=== PATIENT | female | born 1995 | race Caucasian/White ===

== ENCOUNTER 2022-09-25 10:48 | Outpatient (OUT) | payer BC, SELFPAY ==
--- NOTE | 2022-09-25 10:55 | US_ITS ---
The [address] [address] Patient Name: INDU ST MRN: [id number] date: 1995 Sex: F Assigned Patient Location: US Current Patient Location: LAB Accession/Order Number: [id number] Exam Date: 09/25/2022 11:00 Report Date: 09/25/2022 11:52 At the request of: MARZENA JARRELL Procedure: US pelvis w/ transvaginal EXAMINATION: US pelvis w/ transvaginal HISTORY: Pelvic Pain In Female R10.2 COMPARISON: No relevant comparison available. TECHNIQUE: Transabdominal and/or transvaginal sonographic examination was performed as indicated by examination type. FINDINGS: UTERUS: Normal size and appearance. Uterus size: 8.4 x 3.9 x 5.1 cm ENDOMETRIUM: Normal homogeneous appearance. Endometrial thickness: 4 mm RIGHT OVARY: Contains a 3 mm hyperechoic area; calcification versus possible hemorrhagic cyst. Small amount of simple appearing free fluid within the adnexa suggesting a recently ruptured cyst. Duplex Doppler demonstrates normal waveform and flow; resistive index 0.5. Ovary size: 2.6 x 2.0 x 3.0 cm LEFT OVARY: Normal size and appearance. Duplex Doppler demonstrates normal waveform and flow; resistive index 0.5. Ovary size: 3.2 x 1.3 x 2.1 cm CUL-DE-SAC: Unremarkable. No significant free fluid. BLADDER: Unremarkable. OTHER: None. US/US pelvis w/ transvaginal IMPRESSION: 1. Small amount of free fluid within right adnexa suggesting a recently ruptured follicle/cyst, which may contribute to patient's symptoms. Electronically authenticated by: BRIAN ANYAK Date: 09/25/2022 11:52
[2022-09-25 12:14] LABS: Basophils Percent Auto 0.1 % (0.2-2.0); Eosinophils Percent Auto 0.5 % (0.9-7.0); Hematocrit 40.5 % (36.0-48.0); Hemoglobin 13.7 g/dL (12.0-16.0); Immature Granulocytes Abs Auto 0.02 10^3/uL (0.00-0.03); Immature Granulocytes Pct Auto 0.3 % (0.0-0.5); Lymphocytes Absolute Auto 1.8 10^3/uL (1.2-3.8); Lymphocytes Percent Auto 23.9 % (20.5-60.0); Mean Corpuscular HGB Conc 33.8 g/dL (29.9-35.2); Mean Corpuscular Hemoglobin 28.7 pg (26.7-34.0); Mean Corpuscular Volume 84.7 fL (81.0-99.0); Mean Platelet Volume 9.6 fL (9.5-13.5); Monocytes Absolute Auto 0.3 10^3/uL (0.3-0.8); Monocytes Percent Auto 4.3 % (1.7-12.0); Neutrophils Absolute Auto 5.3 10^3/uL (1.4-6.5); Neutrophils Percent Auto 70.9 % (43.0-75.0); Platelet Count 226 10^3/uL (150-450); Red Blood Count 4.78 10^6/uL (4.20-5.40); Red Cell Distribution Width 13.4 % (11.0-15.0); White Blood Count 7.4 10^3/uL (4.0-11.0)
[2022-09-25 12:41] LABS: Estimated Average Glucose 108 mg/dL; Glycohemoglobin A1C 5.4 % (4.5-6.2)
[2022-09-25 12:56] LABS: HCG Quantitative <1 mIU/mL; Thyroid Stimulating Hormone 1.667 uIU/mL (0.358-3.740)
[2022-09-25 14:30] LABS: Free T4 0.93 ng/dL (0.76-1.46)
[2022-09-26 04:22] LABS: Luteinizing Hormone(LH) 8.8 mIU/mL (.)
[2022-09-28 18:07] LABS: DHEA, Serum 592 ng/dL (31-701)
== END 2022-09-25 10:49 | disposition home or self-care (01) ==
LOC: US 10:48
PROVIDERS: PCP Family Medicine; Visit Provider Obstetrics & Gynecology
DX: R10.2 Pelvic and perineal pain (principal); N93.9 Abnormal uterine and vaginal bleeding, unspecified; N80.209 Endometriosis of unspecified fallopian tube, unspecified depth
CPT/HCPCS: 36415; 76830; 76856; 82626; 82627; 83001; 83002; 83036; 84439; 84443; 84702; 85025

== ENCOUNTER 2022-09-25 11:42 | Outpatient (OUT) | payer BC, SELFPAY ==
[2022-09-25 14:23] LABS: Alanine Aminotransferase 22 U/L (14-59); Albumin Globulin Ratio 1.3; Albumin Level 4.2 g/dL (3.4-5.0); Alkaline Phosphatase 60 U/L (46-116); Anion Gap 14.6; Aspartate Amino Transferase 12 U/L (15-37); BUN Creatinine Ratio 9.5; Bilirubin Total 0.3 mg/dL (0.2-1.0); Calcium 8.9 mg/dL (8.5-10.1); Carbon Dioxide 25.2 mmol/L (21.0-32.0); Chloride 102 mmol/L (98-107); Estimated GFR (African America >60 (>=60); Estimated GFR (Non-African Ame >60 (>=60); Globulin 3.2 g/dL; Glucose 93 mg/dL (74-106); Potassium 3.8 mmol/L (3.5-5.1); Sodium 138 mmol/L (136-145); Total Protein 7.4 g/dL (6.4-8.2)
== END 2022-09-25 11:43 | disposition home or self-care (01) ==
LOC: LAB 11:44
PROVIDERS: PCP Family Medicine; Visit Provider Family Medicine
DX: I95.1 Orthostatic hypotension (principal); R10.2 Pelvic and perineal pain; N93.9 Abnormal uterine and vaginal bleeding, unspecified; N80.209 Endometriosis of unspecified fallopian tube, unspecified depth
CPT/HCPCS: 36415; 76830; 76856; 80053; 82533; 82626; 82627; 83001; 83002; 83036; 84439; 84443; 84702; 85025

== ENCOUNTER 2022-10-16 12:29 | Outpatient (OUT) | payer BC, SELFPAY ==
--- NOTE | 2022-10-16 13:12 | P.GSHP_ITS ---
History of Present Illness History of Present Illness Chief complaint: pelvic pain, endometrosis Narrative: Patient presents for preadmission testing. The patient states she is having pelvic pain with irregular periods. She denies nausea, vomiting, fever, dysuria, hematuria, or any other complaints. Review of Systems ROS Narrative REVIEW OF SYSTEMS: Negative except as stated in HPI, ten or more systems reviewed. Constitutional: No fever , chills, weakness ENT: No sore throat or epistaxis Cardiovascular: No edema, chest pain, palpitations, or activity intolerance Respiratory: No shortness of breath, cough, or wheezing Musculoskeletal: No joint pain or swelling Genitourinary: No dysuria or hematuria Neurological: No numbness, tingling, weakness, or headache Psychiatric: No mood changes PFSH PFSH Medical History (Updated 10/16/22 @ 13:19 by Kristen Oviedo NP) Surgical History (Updated 10/16/22 @ 12:53 by Kristen Oviedo NP) Family History (Updated 10/16/22 @ 12:53 by Kristen Oviedo NP) Other Delayed recovery from anesthesia Family history of DVT Family history of cervical cancer Family history of heart disease Family history of hypertension Family history of lung cancer Family history of myocardial infarction Social History (Updated 10/16/22 @ 12:50 by Kristen Oviedo NP) Within the past year, how often did you have a drink containing alcohol: monthly or less Smoking status: Never smoker Non-prescribed substance use: denies use 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 Highest level of school completed/degree received: Associate degree: academic program Meds Home Medications and Allergies Home Medications Medication Instructions Recorded Confirmed Type fluticasone propionate 115 2 inh inhalation Q12H PRN wheezing 10/16/22 10/16/22 History mcg-salmeterol 21 mcg/actuation HFA inhaler (Advair HFA) methylphenidate HCl 20 mg tablet 20 mg PO BID 10/16/22 10/16/22 History olanzapine 5 mg tablet 10 mg PO BID 10/16/22 10/16/22 History risperidone 1 mg tablet 1 mg PO QPM 10/16/22 10/16/22 History Allergies Allergy/AdvReac Type Severity Reaction Status Date / Time No Known Drug Allergies Allergy Verified 10/16/22 12:47 Exam Narrative Exam Narrative: Constitutional: Awake, alert, comfortable, well-appearing, nontoxic, interactive, vital signs as charted Head: Normocephalic, atraumatic Neck: Supple, normal appearance, normal range of motion, no meningeal signs, no lymphadenopathy Respiratory: No respiratory distress, breath sounds clear Cardiovascular: Regular rate and rhythm, strong and regular heart tones Abdomen: Nontender, normal bowel sounds, soft, no CVA tenderness Musculoskeletal: Normal gait, no swelling or edema Skin: No rashes or induration, no lesions, only visible skin inspected Neuro: No neurological deficits, normal sensation Psychiatric: Oriented ?3, normal affect Assessment and Plan Assessment and Plan (1) Abnormal uterine bleeding (AUB): (2) Endometriosis: (3) Pelvic pain: Plan Diagnostic laparoscopy, possible SANGEETA, possible FOE, possible bilateral salpingo- oophorectomy, D and C, hysteroscopy, possible Myosure, chromopertubation Scheeduled with Dr. Meade 10/27/2022.
== END 2022-10-16 12:30 | disposition home or self-care (01) ==
PROVIDERS: PCP Family Medicine; Visit Provider Obstetrics & Gynecology
DX: Z01.818 Encounter for other preprocedural examination (principal); R10.2 Pelvic and perineal pain; N83.9 Noninflammatory disorder of ovary, fallopian tube and broad ligament, unspecified; N93.9 Abnormal uterine and vaginal bleeding, unspecified; N80.9 Endometriosis, unspecified
CPT/HCPCS: G0463

== ENCOUNTER 2022-10-27 09:19 | Day surgery (SDC) | payer BC, SELFPAY ==
[2022-10-16 13:04] VITALS: BP 107/62; PULSE 68; RESP 14; TEMP 36.5; O2SAT 98; BMI 21.4
[2022-10-27] VITALS (13 sets, daily range): BP systolic 112–129; BP diastolic 63–89; PULSE 69–92; RESP 16–25; TEMP 36.2–36.3; O2SAT 97–99; BMI 21.6
[2022-10-27 09:27] LABS: Basophils Percent Auto 0.4 % (0.2-2.0); Eosinophils Absolute Auto 0.1 10^3/uL (0.0-0.7); Eosinophils Percent Auto 1.2 % (0.9-7.0); Hematocrit 42.4 % (36.0-48.0); Immature Granulocytes Abs Auto 0.02 10^3/uL (0.00-0.03); Immature Granulocytes Pct Auto 0.3 % (0.0-0.5); Lymphocytes Absolute Auto 1.7 10^3/uL (1.2-3.8); Lymphocytes Percent Auto 23.9 % (20.5-60.0); Mean Corpuscular Hemoglobin 28.3 pg (26.7-34.0); Mean Corpuscular Volume 85.7 fL (81.0-99.0); Mean Platelet Volume 9.6 fL (9.5-13.5); Monocytes Absolute Auto 0.4 10^3/uL (0.3-0.8); Monocytes Percent Auto 5.5 % (1.7-12.0); Neutrophils Percent Auto 68.7 % (43.0-75.0); Platelet Count 239 10^3/uL (150-450); Red Blood Count 4.95 10^6/uL (4.20-5.40); Red Cell Distribution Width 13.7 % (11.0-15.0); White Blood Count 7.3 10^3/uL (4.0-11.0)
[2022-10-27 09:56] LABS: HCG Quantitative <1 mIU/mL
[2022-10-27] MEDS: LACTATED RINGER'S SOLUTION 1,000 ML 50 ML IV ×2 (09:56→12:19)
[2022-10-27] MEDS: METHYLENE BLUE 50 MG/10 ML AMPULE INJ (12:20)
--- NOTE | 2022-10-27 12:37 | P.ON_ITS ---
Brief Operative Note Date of procedure: 10/27/22 Pre-op diagnosis: pelvic pain, menorrhagia, ho tubal dysfunction Post-op diagnosis: same as pre-op Procedure: NAME OF PROCEDURE: [d&c hysteroscopy, diagnostic laparoscopy with chromopertubation ] PROCEDURE: The patient was taken back to the Operating Room where she was prepped and draped in normal sterile fashion after being placed under general anesthesia without difficulty. She was also placed in the dorsal lithotomy position. A weighted speculum was placed in the patient?s vagina. The anterior lip of the cervix was identified and grasped with a single tooth tenaculum. The patient?s uterus was then sounded roughly to [? 9] cm. The patient was then gently dilated using Hegar dilators. The hysteroscope was passed through the patient?s cervix into the uterus. Both ostia were identified. Normal appearing endometrium. No gross evidence of polyps, fibroids or malignancy. The hysteroscope was then removed from the patient's uterus.? At that point, gentle curettage was performed until a gritty texture was noted. The endometrial curettings were sent out to pathology.? The single tooth tenaculum was then removed from the patient's anterior lip of the cervix where excellent hemostasis was noted. The patient was taken back to the Operating Room where she was placed in dorsal lithotomy position after given general anesthesia. The patient was prepped and draped in normal sterile fashion. A humi manipulator was placed into the patient's uterus. Attention was turned to the patient's abdomen, where a small umbilical incision was made. The fascia was tented using Arlene clamps and the fascia was entered sharply. Confirmation of intraabdominal placement of the 10 mm port was confirmed under direct visualization using a laparoscope. The pa tient's abdomen was then insufflated using CO2 gas with approximately 4 liters. A second port was placed left laterally, this was done under direct visualization with a 5 mm port. Survey of the patient's abdomen demonstrated normal liver and gallbladder. Survey of the patient's pelvic anatomy demonstrated normal appearing rt ovary and tubes as well as normal appearing uterus. lt ovary was normal with lt swollen tube, chromopertubation was performed with spillage of dye from the rt side. No endometrial implants could be noted, no evidence of any pelvic disease was seen, normal appearing pelvic cavity. All instruments were removed from the patient's abdomen. The patient's abdomen was deinsufflated of CO2 gas. The patient tolerated the procedure well. Sponge stick was removed from the patient's vagina. The patient's infraumbilical fascia was closed using #0 Vicryl on a GI needle. The patient's skin was closed laterally and infraumbilically using 4-0 Vicryl. The patient tolerated the pr ocedure well. Sponge, lap and needle counts were correct x 2. The patient was taken to Recovery Room in stable condition. Anesthesia: DANIEL Surgeon: Uriel Meade Grain Broker And Market Operator: Mery Curry Estimated blood loss (mL): 5 Pathology: none sent Condition: stable Disposition: PACU
[2022-10-27] MEDS: MEPERIDINE HCL/PF 25 MG/ML VIAL IVP (13:09)
--- NOTE | 2022-10-27 14:29 | PC.NURSE ---
Up to bathroom and voids without difficulty clear yellow urine; peripad has scant bloody drainage; medicated for pain as ordered and per pt. request
== END 2022-10-27 14:25 | disposition home or self-care (01) ==
PROVIDERS: PCP Family Medicine; Visit Provider Obstetrics & Gynecology
PROC: (CPT 49320; principal; 2022-10-27 10:45)
DX: R10.2 Pelvic and perineal pain (principal); N83.9 Noninflammatory disorder of ovary, fallopian tube and broad ligament, unspecified; N93.9 Abnormal uterine and vaginal bleeding, unspecified; N80.9 Endometriosis, unspecified
CPT/HCPCS: 49320; 58350; 58558; 36415; 84702; 85025; 88305; J2704

== ENCOUNTER 2023-03-06 12:07 | Outpatient (OUT) | payer BC, SELFPAY ==
[2023-03-06 16:46] LABS: HCG Quantitative <1 mIU/mL
== END 2023-03-06 12:08 | disposition home or self-care (01) ==
PROVIDERS: PCP Family Medicine; Visit Provider Obstetrics & Gynecology
DX: N92.6 Irregular menstruation, unspecified (principal)
CPT/HCPCS: 36415; 84702

== ENCOUNTER 2023-03-19 20:21 | Outpatient (REF) | payer BC, SELFPAY ==
--- OUTSIDE RECORDS SUMMARY | 2023-03-19 20:24 | XMS_ITS | CCD ---
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 Name Role Phone JOE CUEVAS Consulting Unavailable CAROLYNE EDMONDS Primary Care Unavailable RONALDK, JOE Admitting Unavailable KARASIK, JOE Attending Unavailable GIGI COBB Consulting Unavailable KARASIK, JOE Admitting Unavailable KARASIK, JOE Attending Unavailable RONALDKJOE Consulting Unavailable ARELYASIKJOE Consulting Unavailable KARASIK, JOE Admitting Unavailable KARASIK, JOE Attending Unavailable ARELYASIKJOE Primary Care Unavailable KARASIK, JOE Admitting Unavailable KARASIK, JOE Attending Unavailable CAROLYNE EDMONDS Attending Unavailable Problems Problem Classification Problem Date Documented Date Episodic/Chronic Abdominal pain (1 source) Pelvic and perineal pain; Translations: [PELVIC AND PERINEAL PAIN] Onset: 03-24-2020 Anxiety disorders (1 source) Anxiety disorder, unspecified; Translations: [ANXIETY DISORDER UNSPECIFIED] Onset: 03-24-2020 Chronic Asthma (1 source) Unspecified asthma, uncomplicated; Translations: [UNSPECIFIED ASTHMA UNCOMPLICATED] Onset: 03-24-2020 Chronic Endometriosis (1 source) Endometriosis of pelvic peritoneum; Translations: [ENDOMETRIOSIS OF PELVIC PERITONEUM] Onset: 03-24-2020 Chronic Inflammatory diseases of female pelvic organs (1 source) Chronic salpingitis; Translations: [CHRONIC SALPINGITIS] Onset: 03-24-2020 Chronic Inflammatory diseases of female pelvic organs (1 source) Female pelvic peritoneal adhesions (postinfective); Translations: [FE PELV PERITON ADHES POSTINFECTIVE] Onset: 03-24-2020 Episodic Menstrual disorders (4 sources) Excessive and frequent menstruation with regular cycle; Translations: [EXCESS FREQ MENSTRUATION W/REG CYCL] Onset: 03-22-2020 Chronic Mood disorders (1 source) Bipolar disorder, unspecified; Translations: [BIPOLAR DISORDER UNSPECIFIED] Onset: 03-24-2020 Chronic Other aftercare (1 source) Other retirement (current) drug therapy; Translations: [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] Onset: 03-24-2020 Episodic Other non-traumatic joint disorders (1 source) Other specified arthritis, left hip; Translations: [OTHER SPECIFIED ARTHRITIS LEFT HIP] Onset: 03-24-2020 Chronic Other non-traumatic joint disorders (1 source) Other specified arthritis, right hip; Translations: [OTHER SPECIFIED ARTHRITIS RIGHT HIP] Onset: 03-24-2020 Chronic Residual codes; unclassified (4 sources) Procedure and treatment not carried out, unspecified reason; Translations: [PROC AND TX NOT CARRIED OUT UNS REASON] Onset: 02-23-2020 Episodic Unclassified (1 source) COVID-19; Translations: [COVID-19] Onset: 03-03-2020 Results Test Name Value Interpretation Reference Range Facility Coding Summary.on 01-21-2021 Coding Summary. CD:[id number] Gh 0bWw+PGhlYWQ+DU1CKLXmE 56pvEHkmJ8UL3rUTW3FQHV QNJBVYU8TVB0teXF5NHwdP 2VybiAv CozpmIPzRI20AGt2ANY2iL xsPJslwF8nkIChW8h6CgYu ZY10xB44LVewFKNaAxO1Yc ZpbjsgbWFy A7fiDvItfSPuOjn+PHRhYm xlIHdpZHRoPScxMDAlJyBz wGvlPK1yXe9uDDDgMQJllX xhcHNlOiBj q4reGBUlNOfkAM3cjLfzF2 QbiDT8MWRtx4o2Od43iZU+ QFUfSUW5mDhuNSzqf689Qd Jpj7waQGL4 iIHlNZbxDVR1D07ek1B4SY DmTASgXGK3pKF9iZ9lfNpt stanW8CguSRmNaP2BES4vW QghL6pwGmj xgggnT1vKnx+A64NQG6LOE LOOL2HHqy3F6InGwvpxOC+ FS42SXSmUN81wWHvwIXho9 huxKg1UwKk ZDNvUDV3vMgvFKdoq9QjYI CaL36dzEEze2X8ZQRpuDfv fZMmXdXyeMY5aC9qTZhgyq emb5lnqqmj Qxnzx8qytp36eF93O87tSM npNZSuUYJ7ADBoLTVkoMpb kb7zeK4fEv6+EIdia6zay3 fogQi4ZkXu PDHqdcQucBhqYIC2e4CtDr 95B6JtqQluw7MeIek9ai85 dJGwj6G7fMJ6KRsnBSRdfA 3yDHrgAhE2 GQEhUbSwdL04dJRpRYazIn 1mcCgfgOvfLO0xBXWcnrti FHZibN0tHYBedDFgmPxpXU 4wNTBpbjtm t173YpExUFC7SCHpfSAuA6 PccE8wFiEyALOsKOGwZ7Np dWRjSOopH322PIqhWdF4HA JjxnRhA8Ho EUWihRwrFyP4o7Z3Ge3Fu4 RqpozvVTK2KQpyUWWpQwB8 EhEjIvZ4K4AwCvj4PYWsyN kgDY9pZ6Xr VJCviutvtilkmQI0GNJtUV GdfB24rKIhDJiqLk7hr6E5 j818IOCnJZZhoE12Du4kmW ogMTBwdCBU wG3hiedae3lgcihgYkYxZZ AzICa0VCv7IZDpfWcdBiVq OUO6RaG3AUX8kNYtqO7ylD bfeomslO3j Oyc+Q08qnT7fDII5ERY6yw kfVVYhcyNqRZ31SM11M0Xq PjwvdGFibGU+PGRpdiBzdH orCQ4uOtFz z9hkg7ZbXEtxE4QbRDKiKN anYzq9UIWvKNI9mUF9zR6k UFRkYCrra3U3iWA2O6Uljz Tjdl6kc6gf CQHlQBbcW91ksACvg6J6UE UxeTW5LRRgqKarPvWjrI99 Oyc+SOKioAmww0KqNzlvm2 ixw0ubxJy1 IoFdBUFhorTrbMpdPSD4o8 CtWr28T35fRPbdKRLhKUUd BKJaCRJnvIjptp6hvV6kEd 8+PGNvbCB3 rCJ1cX0gAIVtFhT8MYjiP4 79PpAaaGFwAshzq8kvv4qp mMa5LrOxFMCcdoVaqZnuFM Y9o7HjUf88 J48zUAmdENIbSGQhZJTuCC SftWcgbi6twZ7zRk5+PC9j i6occt04yB50zRI+PHRkIH G1cAjkQFic WYNpjH1yPIrpQjN6INBdZz CffX79oRYtYMgpKb9rnHuk hLmbKI5vQGCcsdzmc098Dn Rja9vzFLZk sTFgUOozEJR5O39dz7E0GF YcFLEpZKO4bIK4zH8btBbd bjogbGVmdDsgdmVydGljYW seFVjuK732 IHRvcDsnPlBhdGllbnQgTm UmHSx5L8VnDum7XIWysHfi BX2szODzNWslXj9rxKrgqS jkMI8vDYDt avgbe497MrNrh1fgHBElwI OxCMqzDAV5N38pg7M0MBGg WTPfQSZ4qFW4mL7tgPpizn ogbGVmdDsg huJscVoiIIyfEPexB099YF RvcDsnPkJpcnRoIERhdGU6 QA74UY49mMMtc8J2qAK6A2 BhZGRpbmct aspssKR4DZClQDCtnQ38Di 2hrShcBz6nMQNhSEZ2PMDn gITqX7YgyX0mUaUbJMHcRD EdL9ThaQVd LQjqE415NLrbIwG2VAQmwx VnJ6EsEMMlqNngTjF7m3E6 Dp6TH1S1UO96BQ66rGKmh3 F1pQC2E8Up CJIcubsgncadjZH7ETKhRP ElkA54Sf1fvMgsGn5tVIUe WCM5WTIzbLOgQ5RzeS8rYg AjMDAwMDAw W5DdnWWdAYuwK449YEntXn Z9YSImaqYrV9SzBHBorXko JpC6i0C7Dg9NXVd6YS07XV 35gFXqb0E0 sGZ5G2ZjYEEhhfnkddytkL N6ZSJfPLFezG70Bv0uaJfv Wf9cGZKvLTZ9ELTppJVzB5 PziX7vEkPi OQFiJWYcO4PziFJnECzvC2 17XTmjKqF4YGAzigKeP6Ug DOSngDlqLdW0p4S2Ln1CLP AgVN07AJJ2 eQC4GW90MH30U5JdWkzpdZ FibGU+PHRhYmxlIHdpZHRo DPvkBDOqVdWejTydXW6bBt 9yZGVyLWNv dIlkePXfZkBxt5fiSPGtUG nsBF1yePsbW1IyaQT6YVVk f8t4Qj07I70xW6KktSB+PG OjhDY7yRI1 lP8fTjPdJzT6SCcsO598Ig GgdYLqJtakm8oqu9hmcPx8 XkQ4IMQkmkPiuWlzBIS3u7 HhBl18S19r IHdpZHRoPSIxNSUiIHZhbG jlrt7orT7sRf7+PGNvbCB3 zEB9xK0zDgQuEsE3WRbxI9 49InRvcCIv Dohrn4mmo5qsrCw6HdSnJW WoqbRwiXfmLEL6y7PoJe69 N1NjzEiru1ErRdu9py15wU Dvu5C6sCM3 L6WzTHYrkoeceEHpnKfjLA 4oRYNffamrCCEuoS7wPNEx V0d7BeCrDyV8NJgkE2Tzvv X6LQPcoUFx DWulRKG1J45na0W9BOGrQE UnJDI3iFO9iM2ntDltfwdb bGVmdDsgdmVydGljYWwtYW ejC779UMKm sKilYCSuyT0kMCVcePMpeG tvHM5zQSUdohpnXqLJUBQR UBBpXCGUNFTEEVqFTt44Y9 AoGyw2LMFk jHehZZ9wzJAfEVgkZp2bgP okzYpvUU4oFPVtuttqYNXe zS9nSZAihGRsdGzaAW6zGX Bwhswiq821 UrVwNAD8QBTnkUVkE2ErfV 4kCnOeCXCgADEuX8DrlQUr CHppK917SGfkWlG6QWFvxx PxB5PgRWRj pVmgRoV0m3N7Hj1hOw2aZk 2jPMv5JQ61UA07gZVtd3K5 mEG4X5SoJVPbxxkjkxtpzS A2UESyYJZg dN59gZScFQvfVu9jz9M1v8 04YLExYJBreU53Ep7laWqh YFVblRREdM3vjlnpz6xbgv ogIzAwMDAw LSv3DTz8KTCmlVfaNeZvVS D3QwR5SYN6aFGcjH6xwUrk ezhhqR9eCbn+MjYgWWVhcn N3D2KpTac7 NZImvKarXM5huNHcVOrsWl 4alCwlxGodNW9jLHJjgtoj ADVqzW6wCJIpaQEcyAazWV 4wNTBpbjtm d472GgZrLLI3IWLcgURqR5 QttV7vCsRfZVLjJWXxS3Iv pQLtWBhjC258OKlcVuN4DS KtraUcQ9Wh WUZaxOunInF7w6Z3Se7MIU 5kyKJ9M4YoYuq7QCNivUdc DP6cvNBaQQafSm3fwOqilE tcGM0oFILn xyreGHOtdW8dCSEzrRLplK luGX8jSDGstlgys282IsLd IVM2FNBloUOdE8HvxB1fKo AjMDAwMDAw B1ZisAXkGXwlQ592VWoqRo E0RNWpedRfH8UbIGBqpHdk XfI4g3T5Oc8XyINgXKDrFX 15AD55YH63 M5ZtUliezZJlsGL+PHRhYm xlIHdpZHRoPScxMDAlJyBz oMtpGP5qPg5yNKBtLUEcrX xhcHNlOiBj m4xsZVKkESpuYU5jwUatK2 LlgLD5WDYzs6a9Oq79D23c V3EvqLU+AABagCH9wJB1pF 0eXbUwJgE1 IWtnB240LfLlmEMzTpfac3 ggd1qqvAd7VeYuYSLmjcLw rUcyHSV3x5BqHu37O15zDT dpZHRoPSIy KANzOVCsdUqtld4moG1kYf 8+XPFzwRF9aAR5jE5wHqYl NdY2QWeiR172RvJreKCfWq zfR30yP9Xe dXA+ABBnSiq5ETNesDzxDZ 6lrVFyNAnhIa0zRVX9TjNb McXsBPnjT1NnLTTzaykbrj jqmUU4NHRh BGKhuL39Dr3phFfdMq4rNY FoGNO5LKCwhTVsG5HwiF9j HcJcTCNpWDViU0EmpDNzSO adZ578HFbf FlI5ATOsqgByW2QlGSFjgF esKpM3o5C7Ok5NzBgngDCm ZA3pIsSoWFs3H8LzNly1HB FkpUgsIB8p tOLjUTleHs5ywWemlVdxRX 0lXJHmwbfcu537IeKgi0tt WNBgxMFsOCmeIIF8B37pa6 C3HYRxNNUq GZV9dXL0qG7osMryyogjvJ VmdDsgdmVydGljYWwtYWxp Q736ILQkyMixYtNBMkv4Z0 ZnIbp6PHXr zDxjLN3brDLbJCfbEe9xtB hdbLiwLM4pPGSpovjxn128 GzLnu3mpIWIpfIMmFKeaQB U1K40mn9D4 CAWnMXXkTVC0cEB6sB9zoY lnbjogbGVmdDsgdmVydGlj RPajKOrtG918OMClpNvgLr 4EJrh2S9Ub Xrf4TVTzvBcpXR9pxOWjCU mqIo5xeYgasVgqFF8oSMDl flmyx000CmRmt9qfKZSdgJ QgVGltZXM7 E62om7K3YYHcGCQeGAP8eI F0dF7isEmsrigifJQmmNny eiQkxPnqLGdaMEbsG511ZS RvcDsnPlBh eWVyOjwvdGQ+NR91cc87Q7 IhHcbwYas3VADtJNC4uYS9 hT5lYJXhZDqms1M3sCX3H8 RnmbHlzx0n b2xs (more content not included)... Normal [facility] Coding Summary. CD:[id number] Gh 0bWw+PGhlYWQ+AN9ACQBhE 88xbNBmjF6NW4qMZE7HYNK WWREZRF9TWA7kiUX2PWmpF 2VybiAv FqlzeKYdUQ29CEa6CLI6tS smOVkxtU6suNDzF0a6YbPm MR44sK27VXgfELVaKoQ5Gh ZpbjsgbWFy O1tdYeBzzHRbJog+PHRhYm xlIHdpZHRoPScxMDAlJyBz lHtyPL7uTs5kRKKmGZPjaW xhcHNlOiBj u9jsLALcHEhdEC1qbGprO1 MxlSW7WLPyv8v8Ww67cLH+ TTDaKZJ0gPoyGExnk123Ao Mah2dbSGB9 pOQmFCllPZC7W43os6D7EH XkUQQkFMU6uBL8oU4igHpr ditbE4TleBQuApJ3OKJ6lU UnjP6moUkj txqjpS4hIls+S84KMK1KFP WPAX5TJjc9N2WkKtngpVL+ WD46GWLzVM27bLDcwPZlm2 wurQa7VxKt ITGuVJN3aZcaLEowo2MvUU BrV53elAYdt2Y0TNDfeBab uBNrQaOprPC3fO5iNKukpm cpx3upugqn Ectvs2svtw85kK58E78qUS roLHGbCYI8BNVhNSOhjTui vi7iwU9xAw6+JUnrx9djb5 zyrUe5SnZz BCPkrwAatRinTGM5h2ZqZi 31O9JidMmwv5ZxFtc6xz30 tRTrz4H4yTC1SDjrWHLcfA 6zBSvqKuY2 PIIdKuTztY46pSDzOFkhAc 0qfEfjxLouAG6hMJMmzqfq XUGydE7oEQSuoLBulDchST 4wNTBpbjtm c991RgBqDJC0FQCqdGJdQ0 BovL7mLyHnXBMnIMDuY0Ei bOEhZFcdD552GHiqAwV2JE FvxoLfL7Nd BNQqkTzaZlV6o9T6Rf7Ng0 HnoefnOHW6MHwkSGSvAbK7 DdCwAyE3Q4WnJud4BBAlkO vyTG7qB2Dh DGTuowrqrnxyyFA3KRYwQX ZvkJ74wKDdAHtxKf9ca4B7 c653IXWeTEPmjG85Dz1dzM ogMTBwdCBU mN0niupdk5izcwipLeQeOW WgVOt9ZRm9SIPlySzqWjVv BPS3ZiP1VWS2fDNapF7wiS cphhxayX5t Oyc+L50uoN0dASZ9UVH9gp hzJZMpdsFaUB54RD58Z4Jq PjwvdGFibGU+PGRpdiBzdH hrFY5oSnLw h8nce3ZjXQrwN6KsODJtDL cfReb6MZOnGAI4gRD1wT4o NLDdUMmig9V8bQQ5O9Fiyh Ooqo7qc9hv KYInYCcrM30zlWSmo6Z0FQ CnuBU2GBBxdHppUhGpdB86 Oyc+YFDpnZkuv1DnNruwb6 uyq9vvzKt5 DjEnFVFubaHxmFsbUQZ9d5 BpLw96Z19gXCiuEIVrCRWa CSNwPZEzgYnytr1vtM1xNh 8+PGNvbCB3 pGW9pO5gYZOmZuS3YJfeW5 59CnVyoMIhMzqor0lsr4pf gPt7LyBtGZAvbkClxQeaTS L6l2AhTt98 T44cUFhaDBIdBJBtNJTtZU QvqBtjjg4ebK0fHv1+PC9j t9mqgy51uW07vXO+PHRkIH Z9fNcbSAcd LXSmhC4qKSheLqS1EXSiHt WmcS46sGZaLApaHg4hwTcz iAxuLO1tYJLyoukxt626Wd Zfq2kqRYGa pQZyVHrpWRG3Q04tl2M7HI UjLMPcLDU2vVA1gB4iaEjx bjogbGVmdDsgdmVydGljYW eaDGjiA750 IHRvcDsnPlBhdGllbnQgTm EyGPv7M1GvDsb1UKNspHxh IL9rfSVgCYgvHt9mpWchbJ xbCH2xUWJu derwm410BzMub1fsKBSudL DmFBxbQBT9K83sl9E8RWXs JRRwICP8rDO7uC5ujRfidr ogbGVmdDsg jlHaqQziPFkpMUzjM539NT RvcDsnPkJpcnRoIERhdGU6 IA76VK44oYXfh3Y0mQT5B1 BhZGRpbmct mjvnsBS2EIMcTKNhdE07Ap 8jxQhrAw4eTRJiGBJ5COTq wPPhO5WieM0wIgXyMOMwEK ZvW6ZwvHCl KEaiY263PYypTbJ9OZInys YlN6YzEFBhiZzmNxR6c1K5 Jz6LI2Y5QJ35KT62sDTfm8 S3gGX9A0Ve RRCdjhpeptariSW7NPElEH AuhG16Dh4wfXjpMq1dMTZj ZST9WSCxkQPyJ7ExbD8hXr AjMDAwMDAw S5MbwZViRYobD045EOdsEp C1KOXiwpYzJ8UfZRFedLbv CbX3h3Q0Ls4EMNn7BK02VM 85dOAvh6Z3 tOJ0L5CtONSvrkrehxpmfK I2BSNcYLUinK22Nv4mzTlu Hi0tJDZeMPO5UBEibZVdA3 DxkI6nAkFm AGHfAAUvL8FgjXIiLDpdL2 83FVtrQoX9MKWiwjCiR9Jx RAUzaQsaTbO1e5E4Iv8ACK HrRS27ZHI6 rMU8HO07AH35S0YlIaworT FibGU+PHRhYmxlIHdpZHRo YJvrLDTdBfTqqUwwZS3wLz 9yZGVyLWNv gXlasTFfTlGmu3piTQNqBU qtUI9gqWtuE1ZpoNF8FZIu v1l3Ur35N88fC2PenAA+PG MkoZS4sXY0 gU9uLcOoZdG3HDtfN720Ik AhdBRhYmisp2lxi7uhaGj1 EbQ5EQQktoBpyFbxPHM1b9 EiGi47A68z IHdpZHRoPSIxNSUiIHZhbG qyme1aaR8kTz7+PGNvbCB3 lGN7zL0vMdXlOlR8EEteA5 49InRvcCIv Xscto3mtx2xcrMk8NzKnXP HtcjFmsZzcHNC2y0DfDe28 H2HnbRpqu1EvYwb6lv63yY Xhg2Z9xDC0 G7SgKYDwiohqhZAhmUqeDK 6kYTOoppzhDBJczC6nBBYe N5v4ZwTgXtS8JAvsP9Jxuh P0GVUddBVn HBbjVPC9U87ra1N0VQWuEQ VqFXM1wPM4vT5rpQefwvpo bGVmdDsgdmVydGljYWwtYW gzB476LWFa jUtnFIUhcP9vSOTovGDifB ijIU9hZPBakgczHsPIYURR FVKcJITQPGYRITzXQr15Z4 QfMbi5YNZb fPvfKQ8wvJXkSTqnFf3jwP fibHsnXU6mLMGlinldSUXm dK9gITNeyNZywJvyAL1hUQ Vzqgxbt630 MkUbJPK0IZGazPYtP6SzjZ 3fUoXyCYAiEJGdP5XiqJDy YXayK773PRsqGjD7IRLimo CqU4YkUIMa zGswOaT2z6U6Sa2lPn7xKi 9zTFi1KF95QK19nGXmy1J2 yQO9P0IuOBEhsqmtqaihoE P4IFHpEVPy jE16oFSaCMlsFc7bq8N8m9 18LMTpZUHncG56Cs6mrZhn MSSfePRIfS6rlokpp6mzyo ogIzAwMDAw YCv3WVy0KREvdXwdSdUiRN O8MxK9NRD1mMCkwN3ljPnn pcifgM2dOeq+MjYgWWVhcn U2I3DnFrr1 NSGdsWlcEO5nyYObTWnoLy 9reXdkaSkkRC8zMZXpzuvc UIIzfH5zZUJsvTErpOevPY 4wNTBpbjtm l733LhTyHLU0LKMugTJwC4 XpeN2yUfScHWBtNJRmD1Jh uXStJCzlJ847UCbkFzH8HM YuezBfM1Je CDUpiZigOfF2z0K3Ue8XQU 9ibFE7S8ZwAyg7PWDfgNbs TB2krLAaGHvaUg5qfSccfL flPT7xSBYk jgklWRTqhC7vWZDirOLxsZ gpEE0dCKZpcpqah858VmJy PNT0JSRkrNRlS5HkrC7oQk AjMDAwMDAw M9KtaMVbHMlfU432TOyeHf C3TKYsvxIxD4XbCAIzbUjw EqW6c4E0Ig5FuNItRYOkBP 62PC27QB33 O3KnRzpbpMMsdUO+PHRhYm xlIHdpZHRoPScxMDAlJyBz gYqaQL6iVj9wZBTuQTCkzU xhcHNlOiBj l2phYEYlFEexGT7tnPcgT3 VtmLT1QHUzh1j6Lb01Y69u R3UsoBZ+JXPzuZD1aKJ4fM 5kChGxHhQ6 KKqnH962EjGabFJrMkcjn1 xdc0gczRi5BiVqRIDcxgQa fDuqRAC8k5ScIt22U31lNS dpZHRoPSIy IILxQACesOowdx3qfC3bMw 8+KAZdpNS5pDR8qQ5rErMk UtX6JLglE818LwIcsRErAv xqO56bY4Fd dXA+GSIfXhe3WCHegPjuQM 7ozXKbXWxgGk4pDFZ5CuBt GzGcITplV8CtIKOcyeqstm qliBH3AYPe HFMfnF04Qc3ojUbeWg5aZV YhLSX5NWSukZHkD9LdcF2k WoAtFVIaSOEpA1GwmYFgTN vdT070SZqc JlN3SBSirjSrN3UnXPDrfJ grAfI7v3J0On7NwTpooSEx VR6gBaBaDSo3M2FyGpi5PI HpcHblIR2i fRUoAVjiNg8hnPhleVwbFR 3hGLQufqjmm605VrRvp3nl SKDboWRfDSdjQZI6D82dt8 P2EUJiOJCi FVP8zIM3fE3epUvojwdniA VmdDsgdmVydGljYWwtYWxp P556KRUbaUsrUdRDRgy3C1 ShWqm0DABy vEwkHQ2kpZAjTXkzGl9zbR kupUfeUC3bHGKgscivm777 DpLpy8ghYBWsuYUyTWbuQN H5X90gx4D6 RPPuRAXpGZG8rAQ1hC7roP lnbjogbGVmdDsgdmVydGlj GNtbHCzrB502KXMvbEsfMt 5QXkh4B5As Bnv8FAPijRoqUA7fxIKdFZ hbVb7wlEqrkPmkXR6gOSSs eqpwr275KoFeu2htPLLomH QgVGltZXM7 S72jx5Y0OSMtXZBhAFG3cB L3xJ4oeAuanzuoxVRpePhz mwSvbDwhJQakXJzhP168QU RvcDsnPlBh eWVyOjwvdGQ+BZ86vz53S1 OkWrgfNlx6UTHjJJS0aYO1 lK3vRGShJJzov5P2dGI3D7 MinmXlki1a b2xs (more content not included)... Normal [facility] CNN[facility] Nurse Visit (REYAA) SUE ST ([id number]) 1995 F Date Time Provider Department 01/20/21 11:45 AM NURSE AYESHA [facility] S[facility] CRISTIANE During your visit today, we recorded the following information about you: Referring Provider: RENETTA BELTRAN [[id number]] Allergies As of Date: 01/20/2021 (Not on File) Date Reviewed: Never Reviewed Reason for Visit: Nurse Visit [792] Primary Visit Diagnosis:Encounter for fertility testing [Z31.41] Other Visit Diagnosis:Pre-procedur e lab exam [Z01.812] Order(s):HCG QUAL UR B/O [[id number]] Order #: [id number] Prescriptions as of 01/20/2021 - Norethindrone Acet-Ethinyl Est (LOESTRIN 03/24, ,) 1-20 mg-mcg per tablet Take 1 tablet by mouth once daily. in continuous fashion Problem List As Of Date: 01/20/2021 (None) Encounter Status:Closed by HUNTER TORRES MA on 01/20/21 Normal [facility] XR HYSTEROSALPINGOGRAMon XR HYSTEROSALPINGOGRAM * * *Final Report * * * DATE OF EXAM: Jan 20 2021 12:34PM VHX [id number] - XR HYSTEROSALPINGOGRAM / PROCEDURE REASON: Fertility testing * * * * Physician Interpretation * * * * CLINICAL: Fertility testing TECHNIQUE: A hysterosalpingogram was performed in conjunction with the gynecology service. FINDINGS: The uterus is normal in size and contour. Somewhat irregular appearance of the nondilated tubes. No spillage. IMPRESSION: Please see [employer] report for assessment of real-time findings. 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 Transcribe Date/Time: Jan 20 2021 1:37P Dictated by : DAYANNA LEROY MD This examination was interpreted and the report reviewed and electronically signed by: DAYANNA LEROY MD on Jan 20 2021 1:45PM EST [id number] [facility] Rubella IgGon 01-05-2021 Rubella virus IgG Qn (S) 20.80 [IU]/mL Invalid Interpretation Code Immune >0.99 [facility] Comment on above: Result Comment: Non- immune <0.90 Equivocal 0.90 - 0.99 Immune >0.99 Performed at: [facility] [address] [place], [place] [id number] PhD Randa Ochoa Performed By: #### 5 [id number] #### [facility] [address] [place] [address] Varic IgGon 01-05-2021 VZV IgG IA Qn (S) 207 Invalid Interpretation Code Immune >165 [facility] Comment on above: Result Comment: Nega tive <135 Equivocal 135 - 165 Positive >165 A positive result generally indicates exposure to the pathogen or administration of specific immunoglobulins, but it is not indication of active infection or stage of disease. Performed at: [facility] [address] [place], [place] [id number] PhD Randa Ochoa Performed By: #### 5 [id number] #### [facility] [address] [place] [address] Consent for Treatmenton Consent for Treatment [id number] [id number]#1.0 0CD:127 Normal [facility] Consent for Treatment [id number] [id number]#1.0 0CD:127 Normal [facility] Free T4on 01-03-2021 Free T4 [Mass/Vol] 0.75 ng/dL Normal 0.58-1.64 [facility] Comment on above: Performed By: #### 2 [id number] #### [facility] [address] [place] [address] VfeT9mdl 01-03-2021 HbA1c (Bld) [Mass fraction] 5.4 % Normal <=5.9 [facility] Comment on above: Performed By: #### 5 [id number], [id number] #### [facility] [address] [place] [address] Physician Orderon 01-03-2021 Physician Order [id number]#1. 00CD:127 Normal [facility] Physician Order [id number] 01 [id number]#1. 00CD:127 Normal [facility] Prolactinon 01-03-2021 Prolactin [Mass/Vol] 45.14 ng/mL High 3.34-26.72 [facility] Comment on above: Performed By: #### 5 [id number], [id number], [id number], [id number] #### [facility] [address] [place] [address] TSHon 01-03-2021 TSH Qn 2.09 m[IU]/L Normal 0.34-5.60 [facility] Comment on above: Performed By: #### 2 [id number], [id number] #### [facility] [address] [place] [address] Vitamin D 25 Hydroxyon 01-03 25-hydroxyvitamin D3 [Mass/Vol] 58.1 ng/mL Normal 30.0-100.0 [facility] Comment on above: Result Comment: Vit sarabia D deficiency has been defined as a level of serum 25-OH vitamin D less than 20 ng/mL (1,2) by the [place] [employer] and an Endocrine Society practice guideline. The Endocrine Society further defined vitamin D insufficiency as a level between 21 and 29 ng/mL (2). 1. IOM ([place] of [employer]). 2010. Dietary reference intakes for calcium and D. [place]: The National Academies Press. 2. Carola SHABAZZ, Pita ELLINGTON, Donna HERNANDES, et al. Evaluation, treatment, and prevention of vitamin D deficiency: an Endocrine Society clinical practice guideline. JCEM. 2010; 96 (7):1911-30. Performed By: #### 5 [id number], [id number], [id number], [id number], [id number] #### [facility] [address] [place] [address] CNCOon 12-24-2020 CNCO Letter Text Normal [facility] Coding Summary.on 11-21-2020 Coding Summary. CD:[id number] Gh 0bWw+PGhlYWQ+TM7GXUKvV 55npWUdjH6RT5pTJU5HUHS BOUODPJ6LYG6hhDP6PAzdC 2VybiAv AfgpnANyYI31OSh6HLU2pO umQOpynW1xwDWfM4u5KmQa PA62uP96GSqzLZJcGwG1Nr ZpbjsgbWFy L2liFeThnEBtKje+PHRhYm xlIHdpZHRoPScxMDAlJyBz jFwxXR1vAv1wPHCeAMUdsB xhcHNlOiBj r5zxUCVmIMaaBC5csVtqJ9 PynYT5ENSco6c8Hv56bJB+ XQJmAOZ6mUzbSKdtv078En Prs2qxIHJ5 uFTeZEigHIN2O84lr8G9FH GiGBEfFFC0hTC7eV1elOyx xkzoR6NkvMHiMmM5DFU2dM CfcR9zjRcy bjmtfX4oAgl+Q42EVD1ZNN FPJZ3RBsy7Y2BgVktgtPX+ CH19ABNpDW69jHOzwFSzx4 szbTp9SiBy CNYvVVY0bZznYXolh6FdTJ YbY88qnJIam5A5INJwaNjx lWPoKlSqyEC7vF0zHXwrdh bdt2atwyzw Zzltk8sive84xW82Q94oAH rnQEUvSUN2XVRpJQFxoOaa ek3hmX8bVq2+JYvvp3sih8 opyXw0SaSy OCCrhxLgcUpiANY5b0KiIi 51Q2MviCqju5QtXpa3qm78 wOUom7R3tKX4LTinVUMgnK 4aVZmeOsQ6 MYRoCqUnxD80qCMeQHqeUs 6vhWmqbGhzUV8fHZPgorwk TGRfkS1eTWJylFLqfUqaKW 4wNTBpbjtm i331HgMySZS7SUJkkISoX0 JqhV9hYbHcMAFsTVZnF2Ry bPBbZNasN631VNwnGtD8YB ZomjEmH8Pt PUQstLnaGeL2x2V8Sr4Is9 YatyszDLL6WBkdLEL6ApA6 PiWnBoM0J1BmFwy3TAOhbV vgSE4xK5Rp JGCfjzvzywlgzNG6ONKyBB LycQ48bZZlHFokOq8xa8E5 s921BYNhXJPgkA40Bu9lrS ogMTBwdCBU wG7vwrxgb6btlbpoGrScQN LrXLo5OZe9GIIedCpuYfPh FJQ6TwR5QTJ1lALycL7bsA xebdeagW1e Oyc+D31ngN3hBYE8QTN5pt btJAPclkJvJE29NZ88S1Lz PjwvdGFibGU+PGRpdiBzdH pzRO8ePwNw b7srj1XoJXiwO7UgETJuRV ljHtv8WWToAVS1kWG0sM9q BTJgQEbfi0K1fMC8X4Zunc Pmpn0vg1ly VUPxCUqzU50zcZAvw4Z4RJ MutBU3ZZIxhUblOlOnzA63 Oyc+YCSwiJeos6NgQhaxh2 yuy3pasPo9 TrTiTLNwewUnvYobONX6p2 SwSr37K16mPGukUJPlYSZf FCIbTOXqpUjsbu2jmY7mRa 8+PGNvbCB3 zHE7eO3cCPKbXbO7GHnpF0 97UzMwuYRkYgqmy8jta5ff cUq4FnMoPYNsluThyDdsRA K6r7HsGu18 H06wJJgwLTWzPXGqIOSkNY JqlYccie1sjM5oNb1+PC9j m8lhhq01rJ21lAB+PHRkIH V2mXygBUio LMOyfP9ySZrqBiB9QOZyUc PatO53lZYbIRwxSv3bpUlr nOjoTS1zOYDxinvjm402Dk Otc8kvNOJb aLAzGRskDBK0H58vl5H3UI TyEWUmMNT2ySL9mH9hzPuz bjogbGVmdDsgdmVydGljYW lwLNlsU977 IHRvcDsnPlBhdGllbnQgTm HpFAx7W3FsNyz8YXJrsVlg QW3diFViWWheTi8wnWsugY zaCY8qEQVm fjcsr499OaSfd2xdTHQrbN QkQOqcLOD1A91gp4K0RKBb DDYnTOH5bZB7qH4xkZtfox ogbGVmdDsg baGlaFlfUXpkEUjiN497UV RvcDsnPkJpcnRoIERhdGU6 PK36PD86iTUmo1C1mOY9A5 BhZGRpbmct maxxgQT9CJBqAEOxsP61Mz 5moJwkLc7rOLHdTEL3OOGq yKBxH4NdzC1mVbThNVZuZK DnK6LtkQEp IOleI924WDxyQhF7MSAkqr FdL9WjQZEtdLjyQqK7x0U3 Pl4IO1W0LY60UH28kRBpx2 W3zHY6O9Ht DOKjnqojaltarPE8TIQiGC NliR37We8vcKtiRw7vYTPj ZTW7ZXLnwXIaQ5IcmC3oMn AjMDAwMDAw J4RfuFGxZQwrH263WWqbFf E1VUBeicEvD1FgOXZdxUua JrT6u3S9Yr0IGSx0WH95CP 82hAVzh8I0 vEZ6X4TwVTDfeznkketywO U0WGEdCDFspV80Hm6jaPvf Ye6uQPXxWFY9XOWbeTBeQ6 GjcM8bOgKa YRSeCOKfC5VxuEVaCEnyD2 10MGqfTkF0FEMjfeEeI4Ya VDWciGlzCzH9u6B7Fs0PLE KgQE63RXU0 eQA7WD42UJ76S6SdOwqjoN FibGU+PHRhYmxlIHdpZHRo JBdkTECsByQilViwJR1hOa 9yZGVyLWNv yFqabJUuZbJwq0geJTLvBK ulVA2iyHvgG2AldCI0AEGn b7o5Ej39B85pB1WasCO+PG PhzFE3kJH2 jW7vPoXrOvY4IZswK348Ti NuwEFxEmqzn1nak9asaPv7 DvY5APKqfrBkqXzaJFD2t8 NlNr19B58d IHdpZHRoPSIxNSUiIHZhbG rwju2jiP5eRq4+PGNvbCB3 kRP2pE0uFfCuKgD7IXohH6 49InRvcCIv Uigig2rtj8tjgUf1CsSiSZ MrxtPyeJpoYTZ4d8OqNp85 F3PuuRryg2VpUdt0nr71jM Zvc7A3pIV9 J3RuBSHaxaqzaCJwbNuvVV 9lRMWjtaofXZXngK4pRTUo E3h3MwZvEkM9VIcxT5Tvjy O4UEShuHZw BGokJAW9F50it2C2SBFjJM UbLYI9zPA6pI8djFalvrjf bGVmdDsgdmVydGljYWwtYW gyD795AKKe uKvuZHOrzR9fQXQttWXdiZ hqNM0lPCVknpeaVbJHNSIP QGRnWXJTJGJEABlVBd28A6 SxAxa9AHJz vLkuBC2ppPKhLVnhHu8lxU phfMatXG3hYBAmyojvKNTv oB4nPLVdlGWcdTwbAY6iWQ Dmkmmbe823 VnKgNOX4QVCrrOWaP5KmkP 7oVfXbHQTxHNSmI0AscPNl BQwlG278DRnwFgU9DELgcw MkD2YdGYTj vOciErA6s8P8Ea9fTh4xCf 5yCZt8CN37UZ44tYIku8K2 cBJ5I6SeXBJpbxmbselyvR G8KKOkJCGh mV05dANjLRlmNp4yf2P2d5 35LTZjAERdfC87Aq4skHnd YFVciNUCpY5mtwawo4wzut ogIzAwMDAw HGn0MWz9TVSsuOwzEiLcDN G1LfQ7OHP7dWXlyW7tuCsl slmovI7lHhx+MjYgWWVhcn K1U1OhZen7 ITPnaXvgWO1mjNQyWRdjPp 4nxMdvzGyzKZ1sZPKexfjw MDHycM3sTRHdoFBmiUgqQV 4wNTBpbjtm v552JgMvWVS6DLMweWEnH2 PnbM5rGqIaKQPuNHGqN2Za nBShNSloA437CFexMdW3WU VvdvAeQ1Sg XJZjfFthCpX8x5P7Kh3YOD 3mlFX6U7RzBew6XOCppBhs SF4pnNMrFXfbVl7abXegeN qgGI8qKHHe yoboEGUsvB8mSLGduZWvsS toDG1jLLWrzkvrw811AqTw ONN4JEDvnQJcN0HmrM4dDa AjMDAwMDAw F9FlnHMxGQrbI482WOnzXp E9SFWmewLcF3XnNTOyfRrc JeS8i1T9Qp2UVMJfAERonW XvUlI0E3Lk PjwvdHI+HH38FSXnGI83hO XytWPvg0medFg0SuNtQHJt GLJ2nRbqECxct8VpEYHvB9 9oqOAqa1T1 AAYjhCshbOVpUbQntXO0aZ 9eSVfsmpout5ncmubqOpmz y1gbhp29iQ69W40xHKzpII RoPSIzMCUi KQQelDhnqq5ndL5oLp1+PG PkfXO5aCU9vL3uZaCfAiG9 ZOtsD555NmIscAJgAadyy4 olj7yyxBm5 XhAwXCKfmcYydJtlTND8a4 GtQo88X28vKPcuRPAvCIQn PWQiGFIyzVsqqp0wfI9xNf 8+PV3ir4di rw87mA25kUK+IJCxXWY0lN mzBJtkJLJekP8nQRbfXbX0 OUMiZaOhjQ61uRIyHBjxMy 1yaWdodDog ML3qFMYxnrbmu827TkJsd5 viTJEtpTJxRAzdLVA6D91i l5U8LDXbTSDkYSL4mSP8vD 1hbGlnbjog bGVmdDsgdmVydGljYWwtYW diW437NOEuiCwnQeWntXLo Y1bgebAFCH5xWedtvAS+PH XtSUW0cAqt GKgtVBHujO0tFGBiY3x2Ck LjPoX5EQkvO0QzafZ9QLVw pSDoCMYjdAFQcT0mwjpth2 xvcjogIzAw BDZpHHl8BIz1JUGogGsfQz JoXZU9HqD1QUG9eTLbrE0p aAkeqswuqQ2lIye+RklOOj wvdGQ+PHRk WOS2kOddPXgwGVRcjD3uCZ ImC0z5DyOzAyP5TZypQ8Og wnD6JVLepDNkETYeyOUTcF 2ddpjqn7bh lntaFiCnMVXfUQu9QWr3QR SjsHqeFsCxURS0BsV6HQZ6 uMUovW6pfCoqqryrjB7fHr c+TVJOOjwv dGQ+YGPiSID9aNcdKTzpEO CcjZ6sFPDhM5o0ZvLaVfV4 VGsiW4HcnjX3ZVYikERgLD QzsHJBnQ1x kabuj6ytorviDwBjPMIdFJ r4AAh9STXfeCazBlZrEZS7 NbY1RAW9uBLmmZ7itVfqhm wbwM2oSmj+ JAW9SEQ1QH51JQ25U2LyPq wvdGFibGU+PHRhYmxlIHdp ZHRoPScxMDAlJyBzdHlsZT 7qUu1dTOTg LWNv (more content not included)... Normal [facility] COVID-19 (MC)on 11-05-2020 SARS-CoV-2 (COVID-19) RNA REEMA+probe Ql (Unsp spec) Not detected Normal Not Detected [facility] Comment on above: Result Comment: This test result should be correlated with clinical presentations and medical history by a healthcare provider to determine its clinical significance. This assay was performed by a reverse transcriptase real-time polymerase chain reaction (rt PCR) method on the [employer] system. This test has been authorized only for the detection of nucleic acid from SARS-CoV-2, not for any other viruses or pathogens. This test has not been FDA cleared or approved. This test has been authorized by FDA under an Emergency Use Authorization (EUA). This test is only authorized for the duration of time the declaration on that circumstances exist justifying the authorization emergency use of in vitro diagnostic tests for detection and/or diagnosis of COVID-19 infection under section 564 (b) (1) of the Act, 21 U.S.C. 360 bbb-3 (b) (1), unless authorization is terminated or revoked sooner. Performed By: #### 2 [id number] #### [address] [address] SARS-CoV-2 (COVID-19) RNA REEMA+probe Ql (Unsp spec) Pass Normal Pass [facility] Comment on above: Performed By: #### 2 [id number] #### [facility] [address] [place] [address] Specimen source Nom (Unsp spec) Nasal Normal [facility] Comment on above: Performed By: #### 2 [id number] #### [facility] [address] [place] [address] Consent for Treatmenton 09-0 Consent for Treatment [id number]:[id number] Normal [facility] COVID-19 (MC)on 11-02-2020 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 NO Normal [facility] Comment on above: Performed By: #### 2 [id number] #### [facility] [address] [place] [address] ICU NO Normal [facility] Comment on above: Performed By: #### 2 [id number] #### [facility] [address] [place] [address] ? Unknown Normal [facility] Comment on above: Performed By: #### 2 [id number] #### [facility] [address] [place] [address] Resides in a Congregate Care Setting Unknown Normal [facility] Comment on above: Performed By: #### 2 [id number] #### [facility] [address] [place] [address] Symptomatic as defined by CDC YES Normal [facility] Comment on above: Performed By: #### 2 [id number] #### [facility] [address] [place] [address] Physician Orderon 08-27-2020 Physician Order [id number] 0CD:127 Normal [facility] URon 03-22-2020 , QUAL Negative Normal NEGATIVE [facility] Comment on above: Performed By: #### P REGU #### [facility] [address] [place] [address] Juany Mccarthy [facility]-02 Covid-19 PCR DETECTED Abnormal NOT DETECTED [facility] Comment on above: Result Comment: This test is not yet approved or cleared by the [place] FDA. When there are no FDA-approved or cleared tests available, and other criteria are met, FDA can make tests available under an emergency access mechanism called an Emergency Use Authorization (EUA). The EUA for this test is supported by the [place] of Health and Human Service's (HHS's) declaration that circumstances exist to justify the emergency use of in vitro diagnostics for the detection and/or diagnosis of the virus that causes COVID-19. This EUA will remain in effect (meaning this test can be used) for the duration of the COVID-19 declaration justifying emergency of IVDs, unless it is terminated or revoked by FDA (after which the test may no longer be used). Performed By: #### C VDTB #### [facility] [address] [place] [address] Juany Mccarthy EUA Statement SEE BELOW Normal [facility] Comment on above: Result Comment: This test is not yet approved or cleared by the [place] FDA. When there are no FDA-approved or cleared tests available, and other criteria are met, FDA can make tests available under an emergency access mechanism called an Emergency Use Authorization (EUA). The EUA for this test is supported by the [place] of Health and Human Service?s (HHS?s) declaration that circumstances exist to justify the emergency use of in vitro diagnostics for the detection and/or diagnosis of the virus that causes COVID-19. This EUA will remain in effect (meaning this test can be used) for the duration of the COVID-19 declaration justifying emergency of IVDs, unless it is terminated or revoked by FDA (after which the test may no longer be used). When diagnostic testing is negative, the possibility of a false negative should be considered in the context of a patients recent exposures and the presence of clinical signs and symptoms consistent with SARS-CoV-2. Performed By: #### C [facility] #### [facility] [address] [place], [place] [address] Juany Mccarthy Encounters Encounter Date Encounter Type Care Provider Facility Start: 02-22-2023 End: 02-22-2023 ambulatory CAROLYNE EDMONDS Not Available Start: 03-22-2020 End: 03-22-2020 Patient encounter procedure JOE CUEVAS Facility:[facility] Start: 03-03-2020 Encounter for prepro cedural laboratory examination JOE CUEVAS [facility] Start: 02-25-2020 Encounter for other preprocedural examination JOE CUEVAS [facility] Start: 02-23-2020 End: 02-23-2020 Patient encounter procedure JOE CUEVAS Facility:[facility] Start: 02-20-2020 End: 02-20-2020 Patient encounter procedure JOE CUEVAS Facility:[facility] Start: 02-16-2020 End: 02-17-2020 Patient encounter procedure JOE CUEVAS Facility:[facility] Encounter for other preprocedural examination JOE CUEVAS [facility] Encounter for prepro cedural laboratory examination JOE CUEVAS [facility] Payers Date Payer Category Payer Unknown [id number] 2.16.84 [id number] 1994 Unknown [id number] 2.16.84 [id number] 1994 Unknown [id number] 2.16.84 [id number] 1994 Unknown [id number] 2.16.84 [id number] 1994 Unknown [id number] 1959 Unknown [id number] 1959 Unknown [id number] 1959 Unknown [id number] Progress note 01-21-2021 Note Date & Type Note Facility 01-21-2021 Note HNO ID: [id number] Author: Dax Robert MD Service: ? Author Type: Physician Type: Progress Notes Filed: 01/23/2021 10:57 AM Note Text: Discussion with patient 25 year old P1011 s/p DANDC for SAB '16 and '13. 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 She was tx'd w/ Clomid for menometrorrhagia w/o ovulation. She is back on OCs and c/o BTB. OP report 03/25 states both fallopian tubes are cystic, tortuous with multiple cystic changes, adhesions and no fimbria visualed on either side...no spill on either side . Also, widespread lesions of endometriosis in pelvis including anterior and posterior peritoneum, ovaries and fallopian tubes . Review of intraop photos shows normal right adnexa free of adhesions and good fimbria. There are omental adhesions to the left adnexa. The left tube is of nl caliber but the distal end is not shown. Only 1 small superficial endo implant noted on bladder flap and right uterine cornua. Nl hysteroscopy images. HSG yesterday - EXTENSIVE SIN throughout the length of both tubes, spill on left (images reviewed) PLAN - continue OCs until ready for IVF, escripted Estrace for BTB reviewed high ectopic risk if she conceives spontaneously I spent a total of >20 minutes via virtual visit on the date of the service which included preparing to see the patient, [id number] patient care, completing clinical documentation, counseling and educating the patient/family/caregiver and ordering medications, tests, or procedures. Dax Robert M.D. [facility] Procedure note 01-20-2021 Note Date & Type Note Facility 01-20-2021 Note HNO ID: [id number] Author: Renetta Beltran MD Service: Reproductive Endocrinology Author Type: Physician Type: Procedures Filed: 01/20/2021 12:35 PM Note Text: HSG risks, benefits, alternatives, and personnel discussed with patient who agreed to proceed. Procedural time out Done in room where procedure done: YES Done just before starting procedure: YES All members of procedural team involved in time-out: YES Active communication used: YES All team members agreed on procedure: YES Patient correctly identified by two identifiers: YES Correct side and site identified YES All needed special equipment/instruments available: YES UNIVERSAL PROTOCOL / SAFETY CHECKLIST Procedure to be performed: HSG Sign in Communication: Completed Time Out: Team Confirms the Correct Patient, Correct Procedure, Correct Site and Site Marking, Correct Position (if applicable). Affirmation of Time Out: N/A Sign Out Discussion: Completed Procedure Details: The procedure was performed without difficulty. Speculum placed into the vagina with excellent visualization of the cervix. Cervix cleaned with betadine. Anterior lip of the cervix grasped with a single toothed tenaculum. Catheter inserted into the uterus without difficulty. 30cc contrast solution injected into the uterine cavity. Patient tolerated the procedure well. Uterus: normal shape of cavity, small filling defects seen bilaterally in the cornual area, did not move throughout the exam so unlikely to be air bubbles Tubes: -- bilateral fill, tubal lumen appears to be normal diameter -- multiple nodular diverticular spaces in close approximation to the true tubal lumen seen, consistent with salpingitis isthmica nodosa (SIN) -- unable to demonstrate patency by spillage, multiple attempts made but with increasing instillation the uterine cavity fluid leaked around acorn manipulator, attempt was then made with balloon catheter which was also displaced from cervix with increasing uterine pressure Dr. Renetta Beltran M.D. Reproductive Endocrinology and Infertility [facility] Progress note 01-20-2021 Note Date & Type Note Facility 01-20-2021 Note HNO ID: [id number] Author: RT Juan(R) Service: Radiology Author Type: Technologist Type: Progress Notes Filed: 01/20/2021 12:30 PM Note Text: Radiology Service Progress Note PATIENT NAME: Sue St DATE OF SERVICE: January 20, 2021 TIME: 12:29 PM PATIENT IDENTITY VERIFICATION COMPLETED USING TWO (2) IDENTIFIERS: Name and Date of confirmed by patient verbally and Name and Date of confirmed by identification band. FALL SCREENING: Has the patient had 2 falls in the last year or 1 fall with injury or currently using an Ambulatory Assistive Device (Walker, Cane, Wheelchair, Crutches, etc.)? No PATIENT GENDER DATA: Female. status: : No status: N/A PATIENT RELEVANT IMPLANT DATA REVIEWED: Not Applicable RADIOLOGY DEPARTMENT: General X-ray: Exam(s) Completed: HSG PERIPHERAL IV DATA: Not applicable SIGNED BY: RT Juan(R) January 20, 2021 12:29 PM [facility] Progress note 01-06-2021 Note Date & Type Note Facility 01-06-2021 Note HNO ID: [id number] Author: Dax Robert MD Service: ? Author Type: Physician Type: Progress Notes Filed: 01/05/2021 10:54 PM Note Text: Review of outside records OP report 03/25 states both fallopian tubes are cysteic, tortuous with multiple cystic changes, adhesions and no fimbria visualed on either side...no spill on either side . Also, widespread lesions of endometriosis in pelvis including anterior and posterior peritoneum, ovaries and fallopian tubes . Review of intraop photos shows normal right adnexa free of adhesions and good fimbria. There are omental adhesions to the left adnexa. The left tube is of nl caliber but the distal end is not shown. Only 1 small superficial endo implant noted on bladder flap and right uterine cornua. Nl hysteroscopy images. PLAN - HSG Dax Robert MD [facility] Progress note 04-21-2020 Note Date & Type Note Facility 04-21-2020 Note HNO ID: [id number] Author: Alesia Bermudez Service: ? Author Type: Nurse Practitioner Type: Progress Notes Filed: 04/21/2020 5:19 PM Note Text: unable to reach, left message to return my call Alesia Bermudez, [employer]ATOR.[employer]OL ASSEMBLER April 21, 2020 1:04 PM [facility] Progress note 04-02-2020 Note Date & Type Note Facility 04-02-2020 Note HNO ID: [id number] Author: Dax Robert Service: ? Author Type: Physician Type: Progress Notes Filed: 04/02/2020 11:43 AM Note Text: Consultation requested by Dr. Cuevas in [place] for an opinion regarding IVF. My final recommendations will be communicated back to the requesting physician by way of shared Medical record or letter to requesting physician via US mail. 24 year old P1011 s/p DANDC for SAB '16 and '13. She has been attempting to conceive since she discontinued oral contraceptives 11/22 and was tx'd w/ Clomid for menometrorrhagia w/o ovulation. She denies headaches, visual changes, hirsutism or galactorrhea but has severe dysmenorrhea. Her is 21 years old and never established a . s/p dx hysteroscopy AND laparoscopy 03/22/20 (pt states she was told both tubes are bad and closed ), also endo tx'd. She also underwent laparoscopic tx of endo '17 then Lupron x 6 cycles. MEDICAL HISTORY - ADHD MEDICATIONS: none SURGICAL HISTORY - DANDC '14 AND 16, LS treatment of endometriosis AND 03/24 FAMILY HISTORY - mother: lung Ca SOCIAL HISTORY - no smoking or etoh PAP - normal 1 yr ago O+ ASSESSMENT - ? bilat hydros, endometriosis, menometrorrhagia w/ dysmenorrhea PLAN - varicella, rubella, TSH, prolactin, a1c, vit D, review op report; discussed laparoscopic salpingostomy AND/or ectomy as well as IVF; continuous OCs I spent a total of 20 minutes via virtual visit on the date of the service which included preparing to see the patient, [id number]-[id number] patient care, completing clinical documentation, obtaining and/or reviewing separately obtained history and ordering medications, tests, or procedures. Dax Robert MD letter to: Joe Cuevas MD [address] [place] [address] [facility] Summary Purpose Family History No Family History Records FoundNo Family History Records FoundNo Family History Records FoundNo Family History Records FoundNo Family History Records Found Advance Directives No Advanced Directives Records FoundNo Advanced Directives Records FoundNo Advanced Directives Records FoundNo Advanced Directives Records FoundNo Advanced Directives Records Found Additional Source Comments INFORMATION SOURCE (unrecogn ized section and content) DATE CREATED AUTHOR 04/15/2020 [facility] DATE CREATED AUTHOR AUTHOR'S ORGANIZ ATION 01/22/2021 [facility] DATE CREATED AUTHOR AUTHOR'S ORGANIZ ATION 01/22/2021 [facility] DATE CREATED AUTHOR AUTHOR'S ORGANIZ ATION 03/31/2021 [facility] DATE CREATED AUTHOR AUTHOR'S ORGANIZ ATION 02/24/2023 [facility] FOR RECORDS PERTAINING TO PATIENTS WHO ARE OR HAVE BEEN ENROLLED IN A CHEMICAL DEPENDENCY/SUBSTANCEABUSE PROGRAM, SOME INFORMATION MAY BE OMITTED. This clinical summary was aggregated from multiple sources. Caution should be exercised in using it in the provision of clinical care. This summary normalizes information from multiple sources, and as a consequence, information in this document may materially change the coding, format and clinical context of patient data. In addition, data may be omitted in some cases. CLINICAL DECISIONS SHOULD BE BASED ON THE PRIMARY CLINICAL RECORDS. [facility]. provides no warranty or guarantee of the accuracy or completeness of information in this document.
[2023-03-22 18:08] LABS: Age Gdln ACOG Testing Note (.); IGP, rfx Aptima HPV ASCU Note (.)
== END 2023-03-19 20:22 | disposition home or self-care (01) ==
LOC: LAB 20:21
PROVIDERS: PCP Family Medicine; Visit Provider Obstetrics & Gynecology
DX: Z01.419 Encounter for gynecological examination (general) (routine) without abnormal findings (principal)
CPT/HCPCS: G0145

== ENCOUNTER 2023-03-26 15:26 | Outpatient (OUT) | payer BC, SELFPAY ==
--- OUTSIDE RECORDS SUMMARY | 2023-03-26 15:32 | XMS_ITS | CCD ---
Author Name Unknown Address [address] [facility] [address] [place] [id number] Organization [facility] Care Team Providers Care Epoxy Specialist Name Role Phone JOE CUEVAS Consulting Unavailable CAROLYNE EDMONDS Primary Care Unavailable RONALDK, JOE Admitting Unavailable KARASIK, JOE Attending Unavailable GIGI COBB Consulting Unavailable KARASIK, JOE Admitting Unavailable KARASIK, JOE Attending Unavailable KARASIKJOE Consulting Unavailable KARASIKJOE Consulting Unavailable KARASIK, JOE Admitting Unavailable KARASIK, JOE Attending Unavailable RONALDKJOE Primary Care Unavailable KARASIK, JOE Admitting Unavailable KARILDEFONSOK, JOE Attending Unavailable MARZENA JARRELL Attending Unavailable CAROLYNE EDMONDS Attending Unavailable Problems [...] 03-24-2020 Chronic Other aftercare (1 source) Other detention (current) drug therapy; 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 CD:[id number]:[id number] Gh 0bWw+PGhlYWQ+PE3UCTZiN 75zcQHsqM2WI9wMRI2LKKQ EJIKPBE7HJQ7tbUW7UHuwQ 2VybiAv OcudeQXhYH47LSm1LWM1nR qqYXoayA9adFYsK7a6ZwMx XN39nI32GUqcITUnXdA7Vr ZpbjsgbWFy C0lkQzQhnZFhCeo+PHRhYm xlIHdpZHRoPScxMDAlJyBz sZwxKJ2rXb8kTWCiOXHnaC xhcHNlOiBj a4nwJTDjCSmrWW6xyTrqP8 YflYH2KLFwt4n5Tm76bHB+ HAVqEEP6xPllOQpwq950Cb Mgw1unEDM8 yALuEAprUOP6E08jp3E5OY DvEJVgHVM7oEP1dU1bjRdq dyrwL8OieVExDpM6CJO0iJ TpaH7hsWno ealnvU4aJiv+R25ORK7ZVB AKFN8NLjm0U5GePyqzzQS+ QL85VMLjQO68xGTocRGjb8 tfgUw3OgGg IIXbSNF2yEppMZmws7DiNY QdB30xfUCqi8G1SPGpyInx sGEvYrJigSC1nV9yMFkpcc ulb2vxlhlq Lsowd0mccm75eG31W44sOC izHMFzTDX7RBQwQIXrfXki qz9vxN9mAx5+COfiu5dtj4 kpdXv4OqOp WWBjvjEntFwlRIZ8x0OaAf 30Y4XrxOmdi5BoJtb8ex93 pNQnt7J1mXS0YCofPJRgnN 6cSLjtAkG6 MTTsPcXmbZ78cHBsXPtuNz 9opIposAcrLZ3zJAHyverq IJCyfS0yJNYeaFZshGvuLD 4wNTBpbjtm v237LfPePKG2YDCcfNAbW2 ZamC6yVqPoIEQfTYOtS7An qYVoNQhzN178ZVcbFkK3OH PcfpFbR6Rr MTQqoXceViB3m4A6Ff7Uv4 OkklcrKMZ6ZMrqLWNkThZ6 PvQeLrY1O4PoRdr6GNMkcJ irEP4qK6Jw BXWwergwimndaMK8DOJhCA DmiT18oOXhNLisVk2fl9J7 z359ZZXpLWFluM52Lb0lxG ogMTBwdCBU pC5lsangz1rueuusDgKiTA XiFNu8BRt3MSTftMsuOiFs CMM3CmA8ISX8yHLxlV1otB bpjpxmpW8x Oyc+K73pnI3pSXA2RKK3no xiNLRaxiWiGL91SG40R9Gz PjwvdGFibGU+PGRpdiBzdH cxBZ3pTtGq o2qyw0MmLUkmS8KkQHXtXH emXkn2EJQpDMO0lWV8mH9j JRFpUTirx9X9dHL4B4Oach Czdw7fh5ns NUDqBYlhY51vzMVmc3D8WX FgcXE1RVMtdSwpJrOpmY01 Oyc+VFUtkTnnu6OsEhldw9 hjx3zigLu2 AtOcCFAacvRssPcoOOS7q9 VkNj69F11tCLkuMVEpPPCw RLDqILJweKxeoz4byZ8xDe 8+PGNvbCB3 sTD3pL1dQSGtOnL2FRocN5 78ZpOkyBEaTqjdn0tyr6uw aMb8RfTaNFWmarPiwZgaRU S0h3GgOp38 V43uXBrcHKNxFCPyPEGtJA LbbNjlqf3ftU5rYz0+PC9j c9lnxo27nE11hGG+PHRkIH S8wEtwVUsw IEIxeD1oSUreVdO4ZCDdYh JalL24kSDoCCezFz3jgWom tYekUY7iKDWyqenkj142Lj Xrl4wmLEUt eKWeAKmwDDO6K03na3T7GR RbMOLePNJ2lKY4wH3taGam bjogbGVmdDsgdmVydGljYW zkKHmtL206 IHRvcDsnPlBhdGllbnQgTm JpWWu0I2OyPoa2ZKIweBbl SX7eqAWwBFavNm8hzTalsL feCK2pTYTt fqbss421EwWjj9irWEBxjY TnYCchORG5D90ga4M7FEIv TUZjUYS1yUX5nA5jjHzlfa ogbGVmdDsg gcEpfZyzDZxkHVuqB681NT RvcDsnPkJpcnRoIERhdGU6 PA81GC42uCAmw3J8xUC0U4 BhZGRpbmct ghatgCN8IPCvGSChjP43Fx 6nrGzwFq6nZWCpKCN0OGPr oQCbI0JhaG1rCqGqUMLgHM KeS2WevDKh ZXjqO897QYwjWoU8RZThzq SiH8PfTOXrtSvsCoJ1r1R6 Gi5FB4U3NG35ZX52qRWqh0 M1fAI6F0Al EDLtkswraqcekPS8CUJkNZ UkbC08Cr2ykRdgHy3gEVCc NXJ4STVdvXLuJ6DkdK1sCl AjMDAwMDAw N1JnfFNuTRuuL182CUyfYp Z8RFWaebAuF0RoVREccXmb AqG1q0U8Gw8DULh4RM17NP 33zSRdz2C6 zWS8P3FeEMGlvobkfetowQ V7BILjSUYtvL29Wq2swObp Ky9wYAOdKMZ3XUEycZWwG2 PdtO5oAzMj HXDhHNPpX3OyvPGkICswI7 99SKxoFwB5VKDifbRdB0Gl JSLtrHdbSgV3e0P2Uk1ITA XxSE56DEQ8 tWH8QK82SS60X2UeCzollM FibGU+PHRhYmxlIHdpZHRo CZobIFAbUuVgxCvtZL8wMl 9yZGVyLWNv yXzfbNNlGvOfg1hzMVBnSY laML6fzOfsI2ZxpRR6MXJv t2t3Bs07D68cE9UgrDL+PG DpaQW7wKD9 lP4tIuLfJwE3GUyyY387Xq GadPGqDefwd9ohs3xaxIn0 HpY0AGOgloStqOwwVRV7p8 DlRs01I42k IHdpZHRoPSIxNSUiIHZhbG aexx8zjV0bIl9+PGNvbCB3 cHM4aN1kJnHdScP6UIqnA9 49InRvcCIv Ckoho6muo6xslAa0TbBoDF OekyFngJsfNOU3f2SoLt52 F9ZnhAncg2FcDru7ad01pR Xqq7J7rCX1 T1VgDVFifmdtwQYpmUvnNQ 4zCWHolvkfQLBxzE3qNXSi H7n0ZrCuUqF9LRczS2Mexz H7NQHwiBOu MRdaVOP3O63ag3I7KZGgVA EgJIJ4fIZ8lZ9deZbqijrk bGVmdDsgdmVydGljYWwtYW axO119QQVa gPgvODUmsF2bFJCznMIegO wpYL8oGBCwwpqySgHNTKBD SRAcUFJOPCKJJQwUVn45H4 AkHom7YPFs pXtyXH5lyLRfIJdmBq1nsI xfuCajPP9eHXMjuhxiSJVa fI7uFEDpxDDsuQhpQV2pNX Kydjmgk737 AqVkFEP7QUZxuSXjX6KihZ 1oOeRnJNJzOHQmJ4XonQUv KJwiX397KGtjMpP2EIOrkp RoM9MoALDy eIgkBhC6f4T5Ai1oTz2aLu 7eGCg2DR02GB28bEMvv9S1 jVD5X3CpDIDtmydoslbhiR X7KPYtSYRi vQ03bCSfJRtmHb3ju7X3d0 80QAVnTTMsjV09Pw7vlIjs YIWnjTHGbO5ilrkin0dlny ogIzAwMDAw WJh9MIu3BUWxxRmbRjReKN T0MaE9OMM8fGYmgP7lzOve jtpmxT6tTmm+MjYgWWVhcn G9B3OjEhj1 WMIxfZqwQV4ibQMdFXkiWl 6xuXfcnGbeYA2tWSZgjydb BIPgmH3kKQXabYNdpMzfBJ 4wNTBpbjtm v776TjAzYVS5GNLwgIFuZ8 GuwK1hQcOoKLBnUVIpP9Qc aUWiFJqaN088VVtjKhM9TQ ZgpgUwB8Bo DJNocQhmCzK4s0I9Jy2NEY 7nzHE6G3EwVkg8PFEhhDbc GG3izLOoDSzlZm3htUosuE nwAO8yVTIw qnxzITCxsO6kEXJytKUpuM izEJ2nVILoxxixb294McZl ENJ6LMQmgWYrB7KvvK0jLk AjMDAwMDAw Z1DodQEjOFcyI117WUtoXa X9MJQvalRcO0SaQIMqcLli NoC5j0S9Rs3FtBHuRRMkIA 77RR36MM67 B0BeGsaeuTDdyWS+PHRhYm xlIHdpZHRoPScxMDAlJyBz lNxoNF8vYn4zABWxKTJlyJ xhcHNlOiBj w6ikONJlGLxcOO8qsTymC8 PzoEK2JKLut8x7Cl31C02c O5JqwMU+VOIekPQ2gRK5pT 5aGuZrPdC2 PAawX422RtIrdVSoYwmin5 yev0vvwHq5LjAfBZTshxWo aOsxUXV9k9VzHm80S94dVY dpZHRoPSIy HZMrUOUsbTwtoi2nrK8eWc 8+ELGqfKB2sDR9bJ1eNmEo XbZ7REvkM626AqZmcBTxLr hzR39cZ0Lp dXA+VPBnHpz5MVLspPwfIJ 3tnHLoAJafMw1yAAL3HzGr PvIyXUfnS9KjHACksbolgb wpyLK0YCNc UDMeyF49Fj0ajTmmGz8aCH FjXLD1OVFifKKlD7FkpP7y FwOiQTSnGMTiJ5OhrWCzYK coU731OEzm YbV1XARmobOpO6ZtHDVjrI naMhA0n9M4Hl3HfOmqfPHj EL8xRhAhALi8B9RtEbh0QD NviCfvCB7u rWQjMEsgJj9euIxetDqkVC 3lNVGrmzbff600DcIff1cr YWAyaMEdLYdsIGM9Y18mo1 A5VEPyEVZa GCU8aZJ3mV3srMhjkkatsW VmdDsgdmVydGljYWwtYWxp U292DBJziUzlWxYFJlj9D4 LoQou5SAEk lGhjCE3ceUXiCQndUw8tzP jugChjGP6qPETlfpzja968 HjDug6smTQBgsYEgSJmtSD N1Y70aw4K4 YZEaJLYwDAA9sNE1vK3xbR lnbjogbGVmdDsgdmVydGlj GXiyOWthV377DVDbkNcyJf 0BNbb2U8Nx Nit6EMIfkXykVF7anLBpEY ozKn8hpJvnxNpkJC2tCMSp imkti889QfZyw8zsOFNtsT QgVGltZXM7 C86il7O1OWLnYXWnRZA2fW C7rX8soJkiwhqefBEqeXnw juNoiUdpIDpuSRqtZ817CU RvcDsnPlBh eWVyOjwvdGQ+QA94cp95P9 WcXoggAzm2ZRMaQXY1nWJ0 kJ5yIQKoUIhov6D0fDG3E3 NikzKhsf2m b2xs (more content not included)... Normal [facility] Coding Summary. CD:[id number]:[id number] Gh 0bWw+PGhlYWQ+JO0RTQEiM 71poKXyaR6QQ6tSAN4SYKL LFYHCAV6NYM5lxNP5MTzlY 2VybiAv MtdouWIzGC51HMw0KGY0eB ykXDiopC6qyTWwN7l3TqQq MB51dT04GZfqWYKsOuQ3Nx ZpbjsgbWFy R5mmWlEdgXOoUpm+PHRhYm xlIHdpZHRoPScxMDAlJyBz bZwyHE8pIz9vBDHzYSIuoN xhcHNlOiBj l4glCKRsMAreUL1yvVkoT3 PqsJU0SYMrt6w8Nm35fGH+ JIStQTB1tXkdXFjbt985It Vxy8aaNIB3 gLPdIOwdROZ1T39tm4S7TA IyBKTtXFK1jBM7mU3fqCkg dcffV3PwvXWyZpG8LMG5jX YdkX5viMqs ldczdQ5jXru+E66NDL1HMI QGIN0MCsf0E9YkEanwtHT+ XX66EBTtKU13zIXtjVOmj5 npsLq5InMn KHDbDPO1pAzhAGfpv0BuTG WcP82sgRBgb8B7CGHgfRkx lKTdOkXctWK3tD6zQYkmnt qkb6nfugoz Gqlwr8nrsl80oO19I00wHU cfJAHiUUJ7XCZuPZNilEme uf5zgI1hXb4+YNels4vcb6 votAw4TcJf USSwrhPyzQloADH3v7FtFg 27S7VfuKraq6AfHuv0go72 bCYfv1J9mCP7PKecBDGztP 2gBRjvAzE7 HEAsNeYrsU63pHZmJDduYq 0caPnbeDxfAA9qDIBfuhgn SMTewU1tOPXuyEOxeTmkSC 4wNTBpbjtm c039DrXpQCC6TRUbuVDkU1 BffJ1pKcUrCUKcJLHnH9Tl lBLkNMczZ975EXngEeM7LY CxmhElO6Ig YXRcuOnyZwF3h3L8Mx1Cp6 BpbkukTEN9UOqlYCRqFuI5 BwKtMqK3N1RxCxt2BOGesQ mmBD1yX1Ke HMKrncubolcubME5TZEfBO OowW75zFFlPZhdRz0yk6P3 i401HRKtHVQggO11Zq5gqZ ogMTBwdCBU cI6yiuors6pnznlcJmDeZU NbOYw5ZKh6KZPswBdtXkRc FVH9IpJ1EDX4rOBleI7lcT whnzwkiX8o Oyc+O18roL1uQWN7PZC5wp qyDIClfwSdPA14ZK42H3Ko PjwvdGFibGU+PGRpdiBzdH wgCS0kLbBf w7ocr3YvRPszC2KpFBYtIY cnEtv4RHEoJDX2sWR9bS6g EBQaOYzbb5H4yFK2J3Pnrh Rblu9ki0mt HTXrWJvtZ79mzMNod7Z0YF XosAL2JXAzcSiqRoAnjW09 Oyc+ZWGumLkir8BuChxyl6 xsn7gweFe1 NzHlZZEmniNupToxNKF6h9 GoHh62B96fMSnrDEVkRFLm FIIhVLWkpOccgz2usE7jEm 8+PGNvbCB3 lJF0jH4wKRRhQaA9QAinF2 95UiYkjETuYtbzv3crj8da yWk1UjRfHCCgnjZjsPoyOS K6q4NuBm99 J23gXEteOBCvVIUsBMVcZD NgzDveey8toA3rSa7+PC9j w2fgtu16sS25sCE+PHRkIH Q4dRzbXDkn ARGgvO7jSMbaJuU7URRvDy EdiC91zTQqNOkoMf1jeBir lWnmXK3uYWIprjfbw850Xy Xnu0ucHMFc dUMeRFtvUUN8P97lg0S3RT XqNBTtCPF7lKT4aU4xkZys bjogbGVmdDsgdmVydGljYW fcPXwlW991 IHRvcDsnPlBhdGllbnQgTm FyRUa7X1MgIlz3OBTxuKcc VS8wiOPwBPahXs8gfIodjS cwUS6cELNv vxkrv052DbItp4ocAZGdaL FePBojJZP4X97ja2B4PFTf CPVqQNS8zDA0sJ9edGmuuz ogbGVmdDsg pmWyeWotBFkyRQvaF442EW RvcDsnPkJpcnRoIERhdGU6 AN56CY64pFAfe7D4xJG3D2 BhZGRpbmct xilxbNK2OHZeWEIfnQ61Rc 9vmNwzXr0fAVFiRRG3ADAn qKXyE8NdiU3jCyReMBCoEK IdS3FzcCNg RGnsI318TOtcMmN0NOUvvr PiL2BoRREhvWexCbB7r8O6 Kh6FP8R2JT68ZR58oOMnz5 N4zCH1K1Np ZOLozyrlyeuotRD7QDVwTM SqfS63Te1gzFisZn6lIPYd TMX2VKYidBVbI3EgoW5aZf AjMDAwMDAw E6VbnVGqQWvyL884TFcnBx N6ILJweaLwQ2BxJSWezXgj OlZ1a7L4Eb0NZGv2ZM53ZH 60eDPvp4A7 hQI7V2QiSAVrwvkoodiicR V1MTRzDNYrwR79Gv1pfJeo Ff3pYPMgRAS2HFMeiSFoW6 KhtS6uZoUp SBBeLFOfV4WimESfNTldE1 73RAhbVpU4VZAojdRbQ1Rd SWPboQrhMwP1m5X2Eh8IDM BiYV92OJB7 kLO3TA63SW35F8VeOcqzjU FibGU+PHRhYmxlIHdpZHRo OAjlXVWjBzYqqGmaFY1jLp 9yZGVyLWNv kNbnxNRlFbVbm1umOLDhPU rdHE4nxWwaY9FfhQJ5NLZf f6d2Xa70I95eG5BukQH+PG PsjKV3gTJ9 yW4cFxXmEtQ0OOzgR780Dh AcvNNrSyjbm2ktf8stuDq6 EzQ5KBFkniUlbVqiWDP9n4 QeIe88N05h IHdpZHRoPSIxNSUiIHZhbG zonk0ozY5cXy3+PGNvbCB3 xCH7lC9gNxZeFxU5HXkrX6 49InRvcCIv Jmfqi4tiz5zvuMe9PuQiKF ViilOpwSmmCIQ3r0ThPb95 L6CdmQfts2OlKih8fy28lQ Mxj4R9uAT7 M9DlSRQvagfeiOCrrNsmLA 3cDPZkfajpDLRwyN3dOVAk W9l0ZwCtPiJ7AHpgP1Cngk V8FVHfyMIo YSioDWO2R76xt7T4IWFsMF QdKSR9bTF9eF6pgYxybfws bGVmdDsgdmVydGljYWwtYW xnE360BQFx rZzuHAOcnU3sMHMlmPUytN vrXQ4aQXHwjockWgSDEQNB OHBgWCGZYYFFXIdHUw13D3 YwObc6ZLVf eKcqJF9kaBLcQQrhSx2ihV icwFpiIC9pPWKacarfOKHe eS0nOVNfpBSfoNlcDO1lEN Rxdjcdq675 AkSzAIN1RXIdgZNvM8NpmP 2qWmNyOCTaXPWxT5FusIUl MUqvI179HFtpDiI7JRDqfo IrH1DmQDXl yQlsDfN7q5A8Wc6tZk5eXh 9jDWf0EF59RU54tUVqq3E7 uTE1G8AjSSGcwjvfylsnnC W2PUKhGWZv uX99uZAqFWwvYs9pu3X3y0 47ZJDkCHHpsV00Vs1juJut FFXjrHJPlI4oapskm5voqu ogIzAwMDAw TOc4KPj3WDVbtFalPzVhGF P0ZzG5NWD1jFBwxQ1lsDwc nthzqJ8hDjc+MjYgWWVhcn D3H7WtQyl8 JAAadJgnAV4akUDsJQceMi 4noUwsrPscHH1iTQZqgjfq WFFdoW0yFBMlfUDqyTbsNG 4wNTBpbjtm l795RfQtOFU1WQYduEWxG6 ZljS1uAvEmJRVpEGZmK9Qu dRQbKAnfP563VLaqOrV9PM BuqbEpJ0Dg OYHroEmxYwD8a6N8Fc8PSL 3twOA5D7OwTxe7AXKldNax OG3xaYNaBDvuFo2ckYbkyH abCA3eDMGm kauaUAFzdD2gKSBilPXcpE apNH1gTKAubwpii564UvTh OAG8SXUywDXqI9IxbE5yRg AjMDAwMDAw P3IpvAXtXJlyZ930LJlkNu X2OZHvtuMgZ2XnOGUtcNhr VxN9o2B8Pe9WyELkTPIcNK 44WH49BO70 A5EqNysfyLZxlTZ+PHRhYm xlIHdpZHRoPScxMDAlJyBz zIcxEH6kUj0hGVZxUJHehJ xhcHNlOiBj t7suTNXcJKflQA7ciFvpO2 ZrkSC9CPJgv7l7Bs60U69c Y6XdyJL+XCLukIK0tPB0kW 7gUtCvNdM3 KCjyK508TxJayIVuWthdl6 ahj1bnkWk8SrNyETHlbqMh xZkvNTR2v0MgOt47C99wFO dpZHRoPSIy AVUaLYUkgYnnll1wvR5vRn 8+FTJlzYG9vRC2dS5wLzMt NdP3IGfzQ165LiFtqJGlRj vsT22yC6Uq dXA+UQClTak8SSXndIhaKO 2ytFMzOLvpNc6oOEY1WdNp DfDjQZpsG7XgEVRiccgwcp patXT5GKEu BYLoeB59Kd8cuGwnQq7oKT MjGGR6LMOvjXCxI6PbkF8d FtLxPIJrHLCqC7AtjGXiFS buV387JHtx XqG4CTMqwuItI6VhGYSkdY beRpS8s8N2Uf5TmSwmmLBl JI7tWwWlBDr5E8SqUjx5GK FnnXueLM1y oLHwDKubId2dvHwtnOpfMI 2dNWVnxyrfk555ZrRko9ds AGTanKBvXUibPUW5Y50if2 L2LESqJCXh QBP4mSE4oG6eeUnsxzatbV VmdDsgdmVydGljYWwtYWxp K713DRCcrMetVdSSQoh3G3 SdWye9YFYz iPesOQ1kbFXhURkiNw9ogF mzsBwlJQ7dIYOupigse388 FpVgy9ppRXDcfZIbLRosLD Q3V62ws9P2 RNZdEUUdKKE0aGZ7zG4osW lnbjogbGVmdDsgdmVydGlj ILojNXguY565MYHlqKugYa 6XVbr7E9Zq Med8HKDgeGakUP5geLVkYD ddJj2lyUjzlZkpSV4wMVVn goarm969KrWpy0kjDDItcB QgVGltZXM7 K38cv1O1KKZiOROcSLP6bN B9sV1tpBpusptibGXyhWxa zmTqwLwrVUnwMVnrF913OG RvcDsnPlBh eWVyOjwvdGQ+XQ21zo78Z4 UuLhkuLio1EJFvSBJ4fVR8 iI8mBOVnHZtrl5K4eMH5R1 LwzrVimv9y b2xs (more content not included)... Normal [facility] CNNURSEon 01-20-2021 CNNURSE Nurse Visit (REIAV) ALMA ROSASUE ([id number]) 1995 F Date Time Provider Department 01/20/21 11:45 AM NURSE AYESHA [facility] JURADODANIELIsabelle During your visit today, we recorded the following information about you: Referring Provider: RENETTA BELTRAN [[id number]] Allergies As of Date: 01/20/2021 (Not on File) Date Reviewed: Never Reviewed Reason for Visit: Nurse Visit [792] Primary Visit Diagnosis:Encounter for fertility testing [Z31.41] Other Visit Diagnosis:Pre-procedur e lab exam [Z01.812] Order(s):HCG QUAL UR B/O [5032562] Order #: [id number] Prescriptions as of 01/20/2021 - Norethindrone Acet-Ethinyl Est (LOESTRIN 03/24, ,) 1-20 mg-mcg per tablet Take 1 tablet by mouth once daily. in continuous fashion Problem List As Of Date: 01/20/2021 (None) Encounter Status:Closed by HUNTER TORRES MA on 01/20/21 [facility] XR HYSTEROSALPINGOGRAMon XR HYSTEROSALPINGOGRAM * * *Final [...] nondilated tubes. No spillage. IMPRESSION: Please see CAP INSPECTOR report for assessment of real-time findings. Processing Assistant: PSCB Transcribe Date/Time: Jan 20 2021 1:37P Dictated by : DAYANNA LEROY MD This examination was interpreted and the report reviewed and electronically signed by: DAYANNA LEROY MD on Jan 20 2021 1:45PM EST [id number] [facility] Rubella IgGon 01-05-2021 Rubella virus IgG Qn (S) 20.80 [IU]/mL Invalid Interpretation Code Immune >0.99 [facility] Comment on above: Result Comment: Non- immune <0.90 Equivocal 0.90 - 0.99 Immune >0.99 Performed at: [facility] [address], [place] [id number] PhD Randa Ochoa Performed By: #### 5 [id number] #### [facility] [address] [place] [address] Varic IgGon 01-05-2021 VZV IgG IA Qn (S) 207 Invalid Interpretation Code Immune >165 [facility] Comment on above: Result Comment: Nega tive <135 Equivocal 135 - 165 Positive >165 A positive result generally indicates exposure to the pathogen or administration of specific immunoglobulins, but it is not indication of active infection or stage of disease. Performed at: [facility] [address], [place] [id number] PhD Randa Ochoa Performed By: #### 5 [id number] #### [facility] [address] [place] [address] Consent for Treatmenton Consent for Treatment [id number]#1.0 0CD:127 Normal [facility] Consent for Treatment [id number] [id number]#1.0 0CD:127 Normal [facility] Free T4on 01-03-2021 Free T4 [Mass/Vol] 0.75 ng/dL Normal 0.58-1.64 [facility] Comment on above: Performed By: #### 2 [id number] #### [facility] [address] [place] [address] [id number] 01-03-2021 HbA1c (Bld) [Mass fraction] 5.4 % Normal <=5.9 [facility] Comment on above: Performed By: #### 5 [id number], [id number] #### [facility] [address] [place] [address] Physician Orderon 01-03-2021 Physician Order [id number]#1. 00CD:127 Normal [facility] Physician Order [id number]#1. 00CD:127 Normal [facility] Prolactinon 01-03-2021 Prolactin [Mass/Vol] 45.14 ng/mL High 3.34-26.72 [facility] Comment on above: Performed By: #### 5 [id number], [id number] #### [facility] [address] [place] [address] TSHon 01-03-2021 TSH Qn 2.09 m[IU]/L Normal 0.34-5.60 [facility] Comment on above: Performed By: #### 2 [id number] #### [facility] [address] [place] [address] Vitamin D 25 Hydroxyon 01-03 25-hydroxyvitamin D3 [Mass/Vol] 58.1 ng/mL Normal 30.0-100.0 [facility] Comment on above: Result Comment: Vit sarabia D deficiency has been defined as a level of serum 25-OH vitamin D less than 20 ng/mL (1,2) by the [place] [employer] and an Endocrine Society practice guideline. The Endocrine Society further defined vitamin D insufficiency as a level between 21 and 29 ng/mL (2). 1. IOM ([place] of [employer]). 2010. Dietary reference intakes for calcium and D. [place]: The National Academies Press. 2. Carola MF, Pita [place], Donna HERNANDES, et al. Evaluation, treatment, and prevention of vitamin D deficiency: an Endocrine Society clinical practice guideline. JCEM. 2010; 96 (7):1911-30. Performed By: #### 5 [id number], [id number], [id number], [id number], [id number] #### [facility] [address] [place] [address] CNCOon 12-24-2020 CNCO Letter Text Normal [facility] Coding Summary.on 11-21-2020 Coding Summary. CD:[id number] Gh 0bWw+PGhlYWQ+CY3ODFDvW 74mbKZusE8JV7fXGN5YETF BTKRGQE2BEB6gmMQ0EKntR 2VybiAv SffkqBCkQN24ZWx5KEO8dP raVTptjC0wfDWzQ3u4AsUf JT95yS47GUztNDRbHgP6Br ZpbjsgbWFy I3qvFdZqoCWlLdf+PHRhYm xlIHdpZHRoPScxMDAlJyBz uFfrQZ9iQo6cJSTsANXjfZ xhcHNlOiBj u0ekUKKlYLziDL5haUwfT3 TbpGQ7FPGzh9y5Zj88sGA+ QVRyDWQ4aZqbCSbtc302Da Yul3mtPEB9 wNUfSGxyHNL6Y58ab8F8ME JpPDTwMFP0nMD1tK1wwOow xodaW2LfiCAaDtN8ZWX4zU CrnD2bfWfl dfrnvZ7hGdh+O57RLE8ONL DKSY9KKkj6D1HbGwvaaQP+ CP43VDWeJR64vLUqcWUbe1 pxbCg3JnTg WLElIWI1lRffFCrui8BsJA QsL27doZQuo6Q1QOZspOqw fVRmNxSnfEL9iD4eUGtpue fqn2tyapvi Mvmwi4tjsr39zC82L63rNH laRPQgZYP0CUHqGOMjiTuv ob9qvK9dCr5+TUqhz5dwj6 owjHc4KqXs RMAsoeJpsMruICM9v5XaWs 86H9GtgKnie1OxKnl9qm79 sVRna8L1cRV1HWjcPHHkoB 3oFRwzMsU2 WZMrPfMlyC56mYWkKUrjPm 9ivYoycPzbZG2oMJLsbcky YDQeaX9jJXApjKPmcSvjRZ 4wNTBpbjtm l181GtIfLCU4NNAhoQBpU6 FgdH5nLcBkCGObGFYaV7Ab fITdQRtlZ008TGnuDcX4GF WfqjGbM1Yx PSLvbCuoZgV5x8Z3Pr4Bq1 TuqcyxWWV7QVgiKRB9HkD2 LeIxYpV7G3FeBss1SFYgwN plWU6dS9Rc CRGublwydcjroOU9TYKxWM QgoS14hCPkEGlbFe9jj3K7 q477MEZrWIZmuA02Zj9ddF ogMTBwdCBU bB3pvsikc3inzlekPjPhKI MgILs1BRg6UHPcaBciKfVd HUM0UdJ4ARW1hFFvkZ2ifF xdulclqF6r Oyc+U95paW0yCEH1FNK8rw pbDOBsxoTxVS67FE89Q7Fd PjwvdGFibGU+PGRpdiBzdH fsEB7rCnTv q0pnw8AxPLhfZ8NvTCUkYA ueDys1UQZiWGF8zJW1pK3x WSKcYFxcq0C9zBZ9J6Digc Rmym3uf1fp AMZaCRhaN02uqUOus6R8QW CekWJ8NRDtxJzfLvChrT86 Oyc+TWCioYcqf8OmIcdvo8 pyo6uxoCk2 IrMqIBHyqgUbhFbtLSZ0b6 RpWv97C28mGFjoBEKdQJYx NIDvTHLkiFdquc6zhM8vSu 8+PGNvbCB3 zOG0sZ1rUAMoNyN0EChkA9 65KkNczUXfPrsdr5pwe3lj zOn4UjHkNBHddfDfgEjoXH X7u0WgSm33 A04oJNchSREoYGFkFMOyEE LabWdjlp1wrJ3cSm5+PC9j b6tdbn50xI51cMX+PHRkIH F8nCxnYZrw COGrbL5cQQyzIwT5JEUiCk DovQ46lBSlMVnuLn7zxRkt dZymNQ6lXGNimhwtz445Nn Paw1rtYMZj fWZqRXudGJN8A69yi7V7ZS AwFDThYXB2zHB5yF4knVxa bjogbGVmdDsgdmVydGljYW xeLLepN292 IHRvcDsnPlBhdGllbnQgTm OxPYy1Z6VaFxa2QIPyvEfv HV1fiZIpTZrbIh1vxOdceS tjIW3nZOJk jobmc819XqCoa1uaJBLfsQ KtGPkkDBI3I39sj0C8BVHn MYBlFMG9iPQ4lM6jvInjiy ogbGVmdDsg ioJivAykEUpdTPypU246ML RvcDsnPkJpcnRoIERhdGU6 DA61EJ83bRThd5V3iYJ0B8 BhZGRpbmct foxgtJY3KQSoYMXywE56Uj 3ivNemGe4qNPVpFIR2BHGm oIAtZ8WayS3wWrAhUTMkDX AqL7PsjGVt SHanZ899SBroCqB0LYGohi LpO9YeDUWbjMhdUlD7i0Z1 Yt8NO8X8RA74CT77iHVbu1 M9hXB0R9Ah FJJhhgwhvxrmjGI0DLJzNG JccW60Xz3ffWzgAu9hZFFb WXC7GLOebZYnJ9MftE4cAx AjMDAwMDAw T1KnfNWhKMesS819RMizHs L4SZGjjoCkD2OuLWOmkIsx QhE5q0K8Wa3IQOf9XF66BE 11wSHpt7U2 gBT9O6GdDILevpahrjxsnU U2DQMvDTGqcQ65Ag2nwNti Xp5vBLSlXSQ0WCZduOIsW2 TltH5pBlUx QYKjCLFqJ1IlvIGsYOkuS4 99YKukMhF3TUJdiiDuN9Yl TDVcrFvaJwE5u1D4Xd0DDI IcVG45DRO5 hYV5EY69ET00G7KuEvbspE FibGU+PHRhYmxlIHdpZHRo LHaiOAMhTjKxcYvgGL7bEu 9yZGVyLWNv wPbxgHPkLbWjx9wfJWNdXU wtVY3lhUgtI9CspTH8QTDa t2s6Ls82V38mJ7TxfGK+PG HweEJ3iVK4 mW5nXyEwDyM3RQwcB585Ih YsgNPzWessd6dik1guhHr8 XxI6LMHtyjCxqWlnFRC2n8 AxVt93D24u IHdpZHRoPSIxNSUiIHZhbG cdsq1woD4bDr7+PGNvbCB3 oCT1wH7yWjNeTlJ9TTqkZ9 49InRvcCIv Bavrm4esu8snfLp8TvRmME UtttGriOqaMCU4x7CiFu83 J2FciAmhj7HyGws8tw33bH Uis3B5sZT4 X4LcCPXjgeszlLJtiSjkUF 9bXEZizewzEIKfpD5yTWMs R7h4XfDlOeC5YFkmQ9Vkam T9OYZaqEKc STemVWB7P33rc1T0VDSlUB BtBHZ1mZB8iY9dtXmdolgo bGVmdDsgdmVydGljYWwtYW ltD651TAGi aRfoLWVelG3eZXCaoXFpmL gcMA4oINFplvxkUqISWJUM BRDaSJBGUHTJAJwMAd39X6 DrIjc8KAWi zOznMF4jgMSdNWarOl4ylW ednInzLZ7lXOGhkkynYCWg vV8bSNEjjUUeeSlzAF9mIF Ceksgza595 LmPmUHJ8WFZdbMTcP6RvgL 8iAdUgXLNiSUIsJ3WoaUXa BKdjR251VHyxQlM4FPXpbr SeO4HwIVZa iItePwD1w1P6Gz3fZr4rNf 1qNTk7VQ80XV86qCJln0Q5 aYP5G2RaGTHiamykwmmjmM B3LMAwNLJc fU97wFFyQQioIy8ua3W9s5 32EAWrNQNyaZ46Nw0vpRbm WIHizZYQdM9fpbppk9bvnh ogIzAwMDAw AAw2INk7LKAhiKrgLgAxET O3YdA9NKE7uCMvcQ9voKvp tiskeM2lYnr+MjYgWWVhcn G6A3HeUmj5 EWFeoQhyTS2rrXFbEHynZp 5hnOokvHdqVR4qTKDdepgq HTDltD2mVFXhxRWhhSnnOM 4wNTBpbjtm o341TuKbTBF6ETKrsXKrO1 AnxI4gMpAxKUIiRASkE2Hz zOFcKEaaV194JHprOtJ4CP OhubStD5Gv FRFytXtnEdB4q6Z9Wx0ZWT 6xdHQ3K2IuUbb2IJYckHkh IU4abNBeGKtiYa4npGokyY enMQ2vZOPv embnTHAyrE6qKRSorHDtzA xoHO6hKYKrsiada468BbFy GHH0WJHnqLHzM0LboI7zHd AjMDAwMDAw U7EqkPTrXYafD163QOlrYs E0JDGujgDdQ0UwVYQrvYkt RjH5u8D0Vd8EEFNrXKWdzC YhDlV4K4Ph PjwvdHI+DN38ULBqLE65vH AslNKoe5bbkDr9CiYaUOVl KOR0jDdgZXcfe7WxUQKoU9 0kxDOek4Z2 PXBarCwshQXyDtGtaIR2nA 3hRVfhqvbbw4bekejkIuks g9zqqb74wA26V08oGGqvCC RoPSIzMCUi YIYuzEacbt3tlW3mJy5+PG CdfFY8gAH1yC9tGvBzTiP9 ASrdE618FfHdlFClGrqyi3 sce1qoqDb1 CfZcEIHhdzEeeNnpRER1u1 PzWn16P30iPYpmPZWxBGRa VRYpQFVbuRykto5ugN7tRe 8+RT7mj9we rm85hK50kVC+MQHbVWP7lG aoWOtiUHQhfN0nJQayJnQ7 BBSsMqOjgS87tPFzVWlxJv 1yaWdodDog BF2uGPIldwyxs269KvNjs6 jeEINacTJrZIwgRTO7S23z u8M4UDPkHLNuYAC5tZX5eH 1hbGlnbjog bGVmdDsgdmVydGljYWwtYW onI682MJYmlCewArHoxUAb M0xsqtBSDX4kRmafhXA+PH OqVAU1eVck LOfgBOUfeI6iYNVqU7m6Pn DpMeX8AVeeC5OaawL0JIDh vEDrZVVgyGQOrD2rwjpww3 xvcjogIzAw BSZmGSc0VKq8UVPevEjhZl RyUYH6OhY9KXV4hDRbwX0s cKwxwtyzvH4dEzx+RklOOj wvdGQ+PHRk KYQ2pNnsQGudUQThbA1dNR XvK5l6WuMjKvF9SDxdN1Iw edF1EVZckXWnULHvlWARpS 4qbbtfz5ea tonxVfBxPFSwBSy8URo0ET GdbNvyKyEoSOU7EzL3LFY6 qWQrwR3kkKtuimhlhD6iDu c+TVJOOjwv dGQ+CUPvVZV7oSemIEzxAZ BrxC8gFXBdJ8m9AvCtQsC9 GVmdJ9FoncY7CKKenFHsAH NynSXJhC8a skrgq7kdoqxbKjEuHUIfZN b0XZw3TJJwyScjIeLzJRF6 TtK0SWM8rHRecX7cqNpvuu pspX5cZfq+ DFB4KQB9UV37JM09S0AmEf wvdGFibGU+PHRhYmxlIHdp ZHRoPScxMDAlJyBzdHlsZT 8cFj3cXURp LWNv (more content not included)... Normal [facility] COVID-19 ([facility])on 11-05-2020 SARS-CoV-2 (COVID-19) RNA REEMA+probe Ql (Unsp spec) Not detected Normal Not Detected [facility] Comment on above: Result Comment: This test result should be correlated with clinical presentations and medical history by a healthcare provider to determine its clinical significance. This assay was performed by a reverse transcriptase real-time polymerase chain reaction (rt PCR) method on the [employer] system. This test has been authorized only [...] or revoked sooner. Performed By: #### 2 [id number] #### [facility] [address] [place] [address] SARS-CoV-2 (COVID-19) RNA REEMA+probe Ql (Unsp spec) Pass Normal Pass [facility] Comment on above: Performed By: #### 2 [id number] #### [facility] [address] [place] [address] Specimen source Nom (Unsp spec) Nasal Normal [facility] Comment on above: Performed By: #### 2 [id number] #### [facility] [address] [place] [address] Consent for Treatmenton 09-0 Consent for Treatment [id number]#1.0 0CD:127 Normal [facility] COVID-19 ([facility])on 11-02-2020 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 NO Normal [facility] Comment on above: Performed By: #### 2 [id number] #### [facility] [address] [place] [address] ICU NO Normal [facility] Comment on above: Performed By: #### 2 [id number] #### [facility] [address] [place] [address] ? Unknown Normal [facility] Comment on above: Performed By: #### 2 [id number] #### [facility] [address] [place] [address] Resides in a Congregate Care Setting Unknown Normal [facility] Comment on above: Performed By: #### 2 [id number] #### [facility] [address] [place] [address] Symptomatic as defined by CDC YES Normal [facility] Comment on above: Performed By: #### 2 [id number] #### [facility] [address] [place] [address] Physician Orderon 08-27-2020 Physician Order [id number]#1.0 0CD:127 Normal [facility] URon 03-22-2020 , QUAL Negative Normal NEGATIVE [facility] Comment on above: Performed By: #### P REGU #### [facility] [address] [address] Juany Mccarthy Covid-19 PCR [facility]on 02-02 Covid-19 PCR DETECTED Abnormal NOT DETECTED [facility] Comment on above: Result Comment: This test is not yet approved or cleared by the [place] FDA. When there are no FDA-approved or cleared tests available, and other criteria are met, FDA can make tests available under an emergency access mechanism called an Emergency Use Authorization (EUA). The EUA for this test is supported by the [place] of Health and Human Service's (HHS's) declaration [...] used). Performed By: #### C VDTB #### [facility] [address] [address] Juany Mccarthy EUA Statement SEE BELOW Normal [facility] Comment on above: Result Comment: This test is not yet approved or cleared by the [place] FDA. When there are no FDA-approved or cleared tests available, and other criteria are met, FDA can make tests available under an emergency access mechanism called an Emergency Use Authorization (EUA). The EUA for this test is supported by the [place] of Health and Human Service?s (HHS?s) declaration [...] consistent with SARS-CoV-2. Performed By: #### C [facility] #### [facility] [address] [place], [place] [address] Juany Mccarthy Encounters Encounter Date Encounter Type Care Provider Facility Start: 03-19-2023 End: 03-19-2023 ambulatory MARZENA JARRELL Not Available Start: 02-22-2023 End: 02-22-2023 ambulatory CAROLYNE Kobi EDMONDS Not Available Start: 03-22-2020 End: 03-22-2020 Patient encounter procedure JOE CUEVAS Facility:[facility] Start: 03-03-2020 Encounter for prepro cedural laboratory examination JOE CUEVAS [facility] Start: 02-25-2020 Encounter for other preprocedural examination JOE CUEVAS [facility] Start: 02-23-2020 End: 02-23-2020 Patient encounter procedure JOE CUEVAS Facility:[facility] Start: 02-20-2020 End: 02-20-2020 Patient encounter procedure JOE CUEVAS Facility:[facility] Start: 02-16-2020 End: 02-17-2020 Patient encounter procedure JOE CUEVAS Facility:[facility] Encounter for other preprocedural examination JOE CUEVAS [facility] Encounter for prepro cedural laboratory examination JOE CUEVAS [facility] Payers Date Payer Category Payer Unknown [id number] 2.16.84 [id number] 1994 Unknown [id number] 2.16.84 [id number] 1994 Unknown [id number] 2.16.84 [id number] 1994 Unknown [id number] 2.16.84 [id number] 1994 Unknown [id number] 2.16.84 [id number] 1994 Unknown [id number] 1959 Unknown [id number] 1959 Unknown [id number] 1959 Unknown [id number] Progress note 01-21-2021 Note Date & Type Note Facility 01-21-2021 Note HNO ID: [id number] Author: Dax Robert MD Service: ? Author [...] which included preparing to see the patient, [id number] patient care, completing clinical documentation, counseling and educating the patient/family/caregiver and ordering medications, tests, or procedures. Dax Robert M.D. [facility] Procedure note 01-20-2021 Note Date & Type Note Facility 01-20-2021 Note HNO ID: [id number] Author: Renetta Beltran MD Service: Reproductive Endocrinology [...] Renetta Beltran M.D. Reproductive Endocrinology and Infertility [facility] Progress note 01-20-2021 Note Date & Type Note Facility 01-20-2021 Note HNO ID: [id number] Author: RT Juan(R) Service: Radiology Author Type: [...] PERIPHERAL IV DATA: Not applicable SIGNED BY: Samina Davison RT(R) January 20, 2021 12:29 PM [facility] Progress note 01-06-2021 Note Date & Type Note Facility 01-06-2021 Note HNO ID: [id number] Author: Dax Robert MD Service: ? Author [...] images. PLAN - HSG Dax Robert MD [facility] Progress note 04-21-2020 Note Date & Type Note Facility 04-21-2020 Note HNO ID: [id number] Author: Alesia Bermudez Service: ? Author Type: Nurse Practitioner Type: Progress Notes Filed: 04/21/2020 5:19 PM Note Text: unable to reach, left message to return my call Alesia Bermudez, [employer] April 21, 2020 1:04 PM [facility] Progress note 04-02-2020 Note Date & Type Note Facility 04-02-2020 Note HNO ID: [id number] Author: Dax Robert Service: ? Author Type: Physician Type: Progress Notes Filed: 04/02/2020 11:43 AM Note Text: Consultation requested by Dr. Cuevas in [place] for an opinion regarding IVF. My final [...] which included preparing to see the patient, [id number] patient care, completing clinical documentation, obtaining and/or reviewing separately obtained history and ordering medications, tests, or procedures. Dax Robert MD letter to: Joe Cuevas MD [address] [place], [place] [id number] [place] [address] Summary Purpose Family History No Family History Records FoundNo Family History Records FoundNo Family History Records FoundNo Family History Records FoundNo Family History Records Found Advance Directives No Advanced Directives Records FoundNo Advanced Directives Records FoundNo Advanced Directives Records FoundNo Advanced Directives Records FoundNo Advanced Directives Records Found Additional Source Comments INFORMATION SOURCE (unrecogn ized section and content) DATE CREATED AUTHOR [facility] DATE CREATED AUTHOR AUTHOR'S ORGANIZ ATION 01/22/2021 [facility] DATE CREATED AUTHOR AUTHOR'S ORGANIZ ATION 01/22/2021 [facility] DATE CREATED AUTHOR AUTHOR'S ORGANIZ ATION 03/31/2021 [facility] DATE CREATED AUTHOR AUTHOR'S ORGANIZ ATION 03/20/2023 [facility] FOR RECORDS PERTAINING TO PATIENTS WHO ARE [...] BE BASED ON THE PRIMARY CLINICAL RECORDS. [employer] provides no warranty or guarantee of the accuracy or completeness of information in this document.
[2023-03-27 13:07] LABS: Progesterone 1.8 ng/mL (.)
== END 2023-03-26 15:27 | disposition home or self-care (01) ==
LOC: LAB 15:29
PROVIDERS: PCP Family Medicine; Visit Provider Obstetrics & Gynecology
DX: N80.209 Endometriosis of unspecified fallopian tube, unspecified depth (principal); N83.9 Noninflammatory disorder of ovary, fallopian tube and broad ligament, unspecified
CPT/HCPCS: 36415; 84144

== ENCOUNTER 2023-04-20 15:42 | Outpatient (OUT) | payer BC, SELFPAY ==
--- OUTSIDE RECORDS SUMMARY | 2023-04-20 15:47 | XMS_ITS | CCD ---
Author Name Unknown Address [address] [facility] [address] [place] [id number] Organization [facility] Care Team Providers Care [place] Consultant Name Role Phone JOE CUEVAS Consulting Unavailable [...] 03-24-2020 Chronic Other aftercare (1 source) Other intermediate manager (current) drug therapy; Translations: [OTH ALF CURRENT DRUG THERAPY] Onset: 03-24-2020 Episodic Other [...] Range Facility Coding Summary.on 01-21-2021 Coding Summary. CD:[id number] Gh 0bWw+PGhlYWQ+KH8VSTDmJ 67cpGRooV6NG6sCSC3IMLK RAXGKFM1YXV5anWS0JTmxT 2VybiAv FpcylOEhHT08YZk0NQH7cQ iiIFlkzV7yeWNwM8y6KbOl QE19gQ43NNpcWLJlKuE1Jf ZpbjsgbWFy H0opGuRsrNXxXmg+PHRhYm xlIHdpZHRoPScxMDAlJyBz iQedSF5pEi0wYEEhFOOfjQ xhcHNlOiBj e7qcQLIeRJsjFC8zkAtwV2 SyoTS2CVThf4f7Oy74gKA+ QNWwPMS1nSizDVsib112Ve Dry8adODT0 oJWzPPwpIXX9U70zo5U7ED TdXGUwBBZ2aXT4bG7hhYdc hnwlY9MniQJkPkC6YDB3mY GafL9siHgl vsqfmA0kPms+P29PAU4UPL LJEV4QQyi8W7YlSghamLM+ ES54GWPdNA76uQWchINoy0 swpZs1SoWy PZHyZGG4rHetMHuax7NaTN TxH52enNSej3C4DDFqdZgw lSErCoChtIH1mM5uFZwyzg ilq5udasno Bzmlb1llzy29iS34Z33eWV omCNLqTFF5BHNxSUXptLbj mk3heX6hOv5+BKrkv9wen2 drsEq8WkPx RIYkvsQeqSttMWW5l7IyMd 51V5OamJxdw3ThMja4mm03 pCKzg3F7sYU1AKyvQKUpaA 7lPDggPgT3 RPBgXwKouC95sQBgBDaoWn 6myGrfkSvaGI2jVYMgdeka ARVbzY1kGOVtgXPynRlsIE 4wNTBpbjtm u489XvLfOUR0FGJroLZvY0 UauJ6fYqKqNPGnAUCbA4Dn eRXbOIfeZ963TJpyPrR3IG IfcvDeR9Un WFBuwSlwFtQ2m7F0Rl3Kx4 FpcwngTCI9JKzmOPQhCgL0 LmHeAoF7N3JrMqx3RSYruL xsQL0rF9Fm LEWoxvmxfomvwJR2BZQoDL EgwE61sWUbFHwwNu3gc8N5 d486KPLrWIEntV17Qx3msV ogMTBwdCBU eZ5qjvsiz9ginrbvNfSzND CnZEi6WEr2FQFlqOhdZrAo GZG8WvW3RJD2tLGvtN7tqX ydxaaygW4t Oyc+S77upF7cTJH0OUY4kq ihIRJmlzDwLT66MN19L0Be PjwvdGFibGU+PGRpdiBzdH ohWE2iXsTu z7tnw9WfSDibF5QoBPXbIG utPhz0IWOzAHU1xVM1gI7n LSCkNKkam5Q5vPB6W9Yxgj Kdxg4xk8yk NJOgSEmcW45cuGVaq0C9AJ LnrDX1GIFfvMugXyZkbM76 Oyc+HDRfoHpmd4SmBmkek3 meo2wceLr1 DpQhGWQvqtLpjSjhPKP1k3 ZcTq54N72rDCjfMNPxQQDo EEEmHSMthVeeok0snO8gKd 8+PGNvbCB3 iZK9mY6bAPNlYeD4CEuzS1 01WeSgsHOxJbkda4dxg3gk uIf3QeAlKHBasgOuoPtxFT Z7g4DkAd36 B55zHYwzPOWbZLUkOQZlIF BnsJnugi4tvT7wPq6+PC9j e0ioqt57iM88jFD+PHRkIH R7kUoiGQjv CKFxwB7pPVoiMhN7VQMuEn SydN89vZHrSVjwJk7cwEne mKhdDM3gSVXqihant424Zn Dwf8ljVSLb vHJmWVjxPPE3W90nb7H4AH KnOCKjLCT1uLF1iK2wzXwm bjogbGVmdDsgdmVydGljYW uhEWucO928 IHRvcDsnPlBhdGllbnQgTm YfANx9E8ZiAyy2KEUkgHvm YY8fcFDrSLrfUj0iaIiqmA bgCG5fGOZm rdaxa017JdOfb1ucRCJrmS SgFFbiQJD4J35pa2R3YNRv RTRiPVU8eDD0iX9ozDsgsn ogbGVmdDsg rpPlwImbJXdeGUveC584UQ RvcDsnPkJpcnRoIERhdGU6 DB83SU87qSUxo0R1yFU8K0 BhZGRpbmct esrdhQI9IKFsLRHwgM34Sr 5pwIbtYy1oADBgUXJ9KBMy vHEuC9XzcR2zCcFqBSGkVU QqM3FybULz QUmtD847SUrtKeL6ITDgmn MrC1JtUJDhyZyrOgI6l5Z4 Kt9DE3A0TW84YB74uTKev7 T6nUN9G5Bu XYGvpbrnzmiesGR0WSGmRW KawV01Ey3mnBlbYs8bMQWs QQD3FWWjfUJrN9IisG3gPg AjMDAwMDAw Z1XunXUvENryF453SMaxSy C5EYHpqdMsL0ZnBIOejWkt BoQ9d0P9Cz2EFMr5KC11JS 00eRHas8C5 bWA6K9KuLDNmdytwatrioU A7ZFYzNWJuaA60Xi8khXca Xt9sHJUrHTN2EDKpyBPjT1 QniU6nXaGv DDXyJEVtS8MppKSnNPmaF1 35EYwqKrO7SWKxceTtH8Fh OMRwdOgrAqX9z9X7Ez7GGV XrHT51ERE6 kFK4TU76OJ40H1YhYohbqQ FibGU+PHRhYmxlIHdpZHRo HPhpCCVvNrTomFmxOJ6cLi 9yZGVyLWNv eYqcdXUqJvYba3lbOMHpKQ nmKD1xhGsmV5NglHZ1VJTg l4n2Jz50T80nB9BclTN+PG FsgJK5aZG9 wS6xCmUfLmH1UBjlZ184Ei CukWGiYwffz6wrn5znySp7 EtD8GBXawwZzySnoYYK8x0 HuCm87T10q IHdpZHRoPSIxNSUiIHZhbG tjpe8anJ4zSu3+PGNvbCB3 cIQ2dX3yXaGzRcR3ADqeW9 49InRvcCIv Qjdms6jfr6ezgJn8MtIkPN LkxjUacFzoKSV1m7FuCa38 D5DaoKoku4AlIzs0px90yN Dfu9J1sJB9 R1MmFHRhpgxchMUclKtnFI 9sYJUpjytjMENtpC7nMYYp M4n9WkSxXyQ7JXquU5Zktf W9RUAppFSl UKokIMS4M57pk7N5AZGoYU KoWVT5uOX9nU3zuNwcuine bGVmdDsgdmVydGljYWwtYW rdB944EYIi sLevFEMonO8sZIQfuYDwgK ebQX3oTVSxpuwuTiAVXBTU ANMkJDFYBJXBCAvDDp27K9 NxBfw1QHGy mAeaGY1muVIkGKigJo7twB wqmFeeHP8rJADzjqljXHAi hN9iTXXsnMEldBwfCS8zSL Twejpjf541 UhZbEQP1YUFkpYCaW1HhsA 0sHoMgFSZtOEKaN5YtwGHd PElyI300BFovIcO4VEMxvq LbB3KmYNJl iQqnRhF6f5H1Yp6cYz1yVe 6nJAk4YZ47PF80jHJiw6K8 uHK3H2ZiGMPqrbpgtrjulE D7GPKwGHHu mM94kATnQTegXn9mf3P2v4 87SOGtYIAkeU70Qb8soLrf LPHepLAGfX2xlfikl1hvrm ogIzAwMDAw TUf8HAq5XZProOhpDfTsWT O8VcK3EPX3nWTvlJ2ilEjr eptzsW2qVhc+MjYgWWVhcn M2W0NmMkb1 NJPgvBooSY3lmPHsQGebQh 5yiUozpHlaUZ5rSFZctcue YNZcnO2uSJWuoLUsqOnkMX 4wNTBpbjtm n631TvKqTUR2NUNdcQJpA6 FvsU5uApNkHEKzZHDsN4Bg qSGsOCjmK093IGusXcT3NH NcopWzK1Xw WLSjlMbfUoH8c5W1Zm6WKW 9lgKQ1T2AdOgw2KOCtmAyy DI6rzUXuUJmcNz7ynKibfX bqHV0pHVJa wtczSLWhxV9uKVZemSBwlC ylWY3sZOUuoqsfu612GsZt MAL4MJKcdCRkO2BrdA5wOx AjMDAwMDAw U6CjuMQyZKxkR558HQujXu J1WIMxawRnM8KjIOYtuTwe MxY6g0W2Zc2YjUDjAYWyYY 25RD54TJ02 U7FwKyqzxAJefKS+PHRhYm xlIHdpZHRoPScxMDAlJyBz gCtnGY9mLx0qCKLeWKPvzO xhcHNlOiBj r1boHXNkDZeqZX5lqDjtX7 AohPS5YTTmi7x7Nt96Q08h V1BqnEA+PNKwlNX2fOI6zT 1dVgEgNkJ5 TBenO114FtXtoSQgQuslb4 bdj0wjgXm1VzEkGOSixkBg yNzxUXD6w6ZbYv37Q41bUY dpZHRoPSIy ACCjQCLknJrauo7jmW6eZt 8+FXBmmLY0yLB3fH7xLeWx WeQ8HMukB932MxSsfSOrTv zvM12uM7Yj dXA+IFBeQsg7SNFccGovMN 5kiQArSVktBc7dDYO5EdVa YwOjDDhgP5DyQLTitkpegv atjKZ5QKUg SGQexH67Eb8jcCsgLx7kXG XqBEG5CCMkrIRsY9LboG5a ZdHqHSLqHHNyO3DkjUEnST jqY517SHpm FzY1VWZhtcOkW9PvFMIbeB rwZhL7c3P5Zt6MnEzdhBGr CR5yFgPwFMg3X4QgMal1GB QnvRpfQW4a sANkXPzbPu6ncLnblUpfVK 9oEVOmokuuy730ZnWsh8ja PAYrvYAqFRnjGMP1B39eo1 X7STHoDFYn FTL9zZV1qF0phHwdcuwxyR VmdDsgdmVydGljYWwtYWxp G390CVRczNokTfUDNau7A9 HdFww0BQNf xHiyLD9xbWZaXWwhBf6qyQ jycKlzHH2kEGFtykuxe560 ZdKbc2luENXsjUTyGAupDU X4B36xu2Q3 UXClTXZgSJX5sIZ0zP5kqE lnbjogbGVmdDsgdmVydGlj KYcgWSzmJ280EGWoeDicWf 1QNvr3H5Jl Uwb5ZKJgvLmaIA8xdGSmDP kmSd8akVczyPteFC1pNUKl nkzqy817KxWwm9yxRSIwfT QgVGltZXM7 S84zh4N4HSNcSEFtSXN5kE O6vM5orMxixojicATtkSmi fcJewCteZJakFKaiB850VB RvcDsnPlBh eWVyOjwvdGQ+IM26zt74R9 GmJtcnQex8AHFpQSF0iGQ0 hI5cSSWjLTdnu5V8lZI7E5 SrhzPlln0e b2xs (more content not included)... Normal [facility] Coding Summary. CD:[id number]:[id number] Gh 0bWw+PGhlYWQ+FO5OCOCiX 19wrXXohB9EG7qTMO1BTGS UELXWJP2BIN6vzZV4YYfoZ 2VybiAv XsumfSMlXD30ATl8PYA6vO hcOFquqB7qcZKsP9t8NzHp IY10bJ45SZmhCSSqWpQ9Uw ZpbjsgbWFy M3jsIpLnfILoByp+PHRhYm xlIHdpZHRoPScxMDAlJyBz mHweSO0uFp9xTFHlUCQfgU xhcHNlOiBj b3uwNEQsBKpdCU9zrRmjP9 HsnEK0RVDut6j7Nq16cYX+ VABvOOB7pBqoKUbuv772Og Sjc5mqQPX6 nGPuYFsuMLZ9H26qg6B2EW CaPSGpIHG8gZD6hR4dgMis fdirK9MnkEGmDdJ4JLC5iH QodQ3gbAbn vfzreV3nQdk+I10BYU9GWH RIYF9SQzw4Y7FyVaboqEB+ JQ72VDFdND84zRBbxUGlq1 ckjXx6EcAn HRJxSYK0xPitGDwxb7UqFY CdP49bjZIgk4Q5GUNyuYuj cUUoHfTaxUH6bH3tPPvnnp yfq0axhvbl Sgzxj4qbre11zV58W72jAL snPCCgVYD6FBLnXWRuvNxn rj8tiH3xVi3+SKplt6qor8 dmfHk3ZlPg ZFNbjkIbnWniHWJ8t3HlBh 81D2VswPcsn7KsEcv0fu53 nHRok0H7tUX4CZljULYslR 4cFNhcAxQ4 KQInIdBzqL03cXViXAleYe 7yyFtsnKcaAC6uGUSqlibz TDTkkJ7rJNYqhZCyeUndBS 4wNTBpbjtm u937SnNlYKM5CGNyvYXzL8 PrxO5hGmGmRXCpDUYiL3Vf gWKbVBykA000SGdfFuW4CZ CufyGjM1Mf XPAxvJzfVoO0t8A8Nq5Mp6 HaqpuoWPB4YZcjNHChFrO5 CpKdXiD3Q2CsOte5LVGipS gpLW4eA2Gq SSPzruysowpscGP8MJImDQ AuyY00xUAfZOedMo8wm9E2 t901KZVjGDArdW14Iv9ykQ ogMTBwdCBU aW1tmxblv1mwvrpkJdDmHZ WoOZw9RMd7NXBtaDvlRpTo XCF2RdD2SAA5dIXyjG4fgA yplymhtK9n Oyc+L92wlJ8tIZN7YYZ0il saFGIoqgAaMU16JM13J5Qf PjwvdGFibGU+PGRpdiBzdH yrVE1zPiJt u9rxy0ZnTIrlU1MxXJJtSY ubDwd0JEKnESP0qFC1mF0g FTPwICmru1X9xJH4U7Hwej Zanr2de7au WDDsCQrrN48ylEPga6B4MR PsyFG7SUXnwAlwTfSzxG31 Oyc+MPTglNxop4OkJohxv9 bar7rnhIl8 ErWlHELuwxZbyMtpGKH8q1 OwKy89D89lPNhpWHHmQJAg AXOfGMCqvKnvsj2fyR5oWc 8+PGNvbCB3 eYL0xO6fNNYiGzL2IJkrV5 77HvGajAZnItlzz8iiz3dy gWb5JrUqQWGnrrOlhYamUD D7q1SnSc14 J66tEIdpOKHsJULnWSTxQV ZmyBoahz8kfS8oPq1+PC9j f7xhan51kG79vXF+PHRkIH F4sVhiRIlw EOZveX4fBOzxKuF4VKYcBa KbrD34hPWsOCpzBm6elSiu dIsyCR4lLEPcyifhf854Hr Kdf1ekQUOf hCSyMTimEYF4R27aa2X7LF SqFFCoMHA8vEK9vY7ffFiz bjogbGVmdDsgdmVydGljYW krKEexP079 IHRvcDsnPlBhdGllbnQgTm AvPCt2Z8KrOhj8OWYpnVol HX3vdYYlGQbtZa5erPkvlV rcBV3kUHLi dcnyn344WzEbr7etULQgiN NpIPxjDAW0K93cc1D7GHJb BEXiVJL3aGF5bQ5yjKkzgx ogbGVmdDsg epVzmAufBQrrLOpqF584NE RvcDsnPkJpcnRoIERhdGU6 UC68EB92dVMgc0F6uKS1C9 BhZGRpbmct wxvgjTS5CDJdQYXgwP23Lr 3ivVerOo2nLNWiYOA8EVHi zYZrK6BqqS7xHqXsEHTgPK JiU0GkkAYo SUydL728NUpmFvC3PQLrec VdQ6ZbBWHxnKtaBqN3s0H4 Hl7SD1U8OD97WA56lMGcx2 T8hAL1Y4Wy YQUsayapdwukcDW6KHSyQW PicC67Nh8gyPxwQz3bBBLj RJB3DKKubCViM6QuxV0wYm AjMDAwMDAw C2NaoGVdNYahJ301TJsfRk C3BDVyxvJmK7TnQDIzmRwo ClD7h1L3Cp1LINh4IU46VN 18cUHwz5O8 dOZ0T4CyXLPylsgilofllZ X6KAWkZFRjnW20Fb0bbTus Bc2wUGOiLAF8EXFgsEXjJ6 NuoW8sCgTa KBRdQCQoS5AhyMMgHQjrX8 32ZDzwJrB5WSErqhZwD7Xx XPMieOylDzZ6k3B2Ui7AND HpDQ47ZLI2 sEZ1AD86ES46X2IgJtlcnX FibGU+PHRhYmxlIHdpZHRo HWbmIBNeSgCqpHgnLU4ePp 9yZGVyLWNv dUnyeHSgLxFxi8mlNJJhFB ivPV0qoJriM9TiyHQ4AGBl u6i6Tv00A41hH8DtlSW+PG UdlLV2hYN1 jV0iNeExZgW1EBhcI705Qb KjzFQxTestp5wxk7jbeRw1 LpM9TECywaMayWhkBUJ7e2 JqQv61V87p IHdpZHRoPSIxNSUiIHZhbG uzvx5csZ2jZc2+PGNvbCB3 eCV6oU3jXdBiVxR7GXxoZ8 49InRvcCIv Txeax2qiy7juhIi8EkSkKR SfqpNmsLdjTAI9g1HwRj86 T8CytTfat1OpHil6hg65pD Jbq7X0oTL3 P4HwACXmksjgnGJsiYugOQ 0eLDUdkjqvXTKsoD3xGOHt P6z1AfRwIhB1FIpmK5Unue C2MNXuaLPu HLlrYMY9Q19ps1A9QQMqNO RoNDQ2sXH3uD1sgJmfsipr bGVmdDsgdmVydGljYWwtYW tqU474FLDw kDjgSRWpmG9mMLFezWJatI umUQ4mLHVppnpoDeIEHFAL UNMyQKJLPJJUOZtTXi84O7 FyWli4YWOr uCfsGZ5vqCPiVGznTk8ohT kayCigMI5vDJVtioxvQNYe gJ1aFLXnmSWphJksSP7uRJ Jlkjnxg716 RhObHIU1PAAqdSUrN8OlrN 5uMeJfUPQxYUNfE7AxiQLj CKeiP593AHydSpN3MQYczm YwK7YhARTt bZruUtJ6d3A5Iv2kEa7yTq 3cXYj1ZU63CZ00fOGex8W8 cAB5T1AfCIBzqnmroiyzdU H5WXXcLOPz jQ65pGFtEEhrXc2lu3K2n3 23JQGeHUYltK14Wx1bfMny ROUbfLSJzI2igzxxl8qfrk ogIzAwMDAw YWh7ZKu9QWPhwAtxNgMqEQ Q8WrT8AHC2mBIidL2czWxh lfdzuF0sOzx+MjYgWWVhcn V2Z8UuDts0 ANSsqIhgMG3ocHYuFIqpVt 3qtFzbqKvtUK9cGBDsluox JLHmsY2cWXArsRRjzRkwCB 4wNTBpbjtm y087FvVzTER0JVCcyMYjR1 QgoB8jUpYsLEInLNFuG4Hj xOMmWVpwL957RUanUgO4BM QboxArF0Bd NISbbYqoIyX8m7L8Iv2KZC 0mhLI4M8NnLvj2NGTvlApp VJ2tnKZuIAjoAm1oxUtgcW srWZ6xXGYw myqoSNCfkR5pQAGwsHDqcK vlOV6rUGLxpegfb841PsQv SAP3DAKblGFbL1MnkM8xJw AjMDAwMDAw Z2DqpKLnMSpkO529CLqeKc J7AYLmeiZeY5CuOHWcvJhj SbG9b0Z2Md8MaWJaOIBeXZ 81RW49CT04 D3CfFiuopPAfiOA+PHRhYm xlIHdpZHRoPScxMDAlJyBz cUxbAI1zDf1zLDYwEFOviX xhcHNlOiBj i8fxTKNfBIlfAD7llYptJ0 ZobRX7MSVdt4t3Vf18A75u H1KtmJB+FXLwlDG2vOU0tZ 1aLvNcUrG4 PArzF739LbRsgDLpHxnyp8 aem6wheMl3TdOgSPBigkGx pCedVFK4l0HdLs83Y06oVG dpZHRoPSIy FUKdIHVgbWkrad9ohQ2eIy 8+NHOzcAW7eCM3tL0zBdEq BhU2JCroK508EoWfuLXpZr dsM01rP8Va dXA+LXUgVbc1GPLwvJhbUG 0xgQKrHPaqNr2eCTV4IgLi KyQaCFvyW9AsVQFdmwlapn ryhAT3ZAQj GXOjiR44Oc0daNltVe0gHI PjIYV4JDZtuASuZ6TznP6a ZwKvUXOzPQAhI4HaiHRpXH upB254EXwl HrI3WSVxyjHwL6XhXSEpyL zdUcI8b8W1Nt5MnCicqKSu ZT8lJpKeBTn0J0UuZsa7QR UrfAuzNA3w vNDoXTzlAp9veLepeMxjUV 8vYZSnlxafj898YyKnb5we ZOWweWUcOOcbOKF8T79zy4 A8PJDqWLVe UHZ7uXZ6uJ8hpHolvrycgK VmdDsgdmVydGljYWwtYWxp O422TAXkuZusJlKVOss9P1 TrLsv1AKNl tLffOR3eaBNkEYiwOb1fvF mhiZhxWL2bKJKrvwxvt984 SuXxa8tmDSHwaAYjWUlsMX G9S10nw8D7 AVGqXQFlFXE9iBY9jN2spY lnbjogbGVmdDsgdmVydGlj LHeeFXoxW141TVRvgCepZk 1JBsz9C7Kq Fri0IAKmdNzxTI9cqOSwTY wlFp8ajViiuKjxCU9lNXBa slarv517TyReq4bzDUAywO QgVGltZXM7 A61mj7O8WMFvGPEqDBW1zU S0jD2fhAjtvrhhxMAzcLqu iyIuvXajNXwjJLpbR509ZF RvcDsnPlBh eWVyOjwvdGQ+QS35cw68G6 NzWawwSvo2WOBuCAD8aUJ5 cR4tBRBpROzxa8Z9tUA0A9 PngvTiqp8i b2xs (more content not included)... Normal [facility] CNNURSEon 01-20-2021 CNNURSE Nurse Visit (REIAV) ALMA ROSASUE ([id number]) 1995 F Date Time Provider Department 01/20/21 11:45 AM NURSE AYESHA [facility] SOUMYA JURADODANIELIsabelle During your visit today, we recorded the following information about you: Referring Provider: RENETTA BELTRAN [[id number]] Allergies As of Date: 01/20/2021 (Not on File) Date Reviewed: Never Reviewed Reason for Visit: Nurse Visit [792] Primary Visit Diagnosis:Encounter for fertility testing [Z31.41] Other Visit Diagnosis:Pre-procedur e lab exam [Z01.812] Order(s):HCG QUAL UR B/O [[id number]] Order #: [id number] Prescriptions as of 01/20/2021 - Norethindrone Acet-Ethinyl Est (LOESTRIN 03/24, ,) 1-20 mg-mcg per tablet Take 1 tablet by mouth once daily. in continuous fashion Problem List As Of Date: 01/20/2021 (None) Encounter Status:Closed by HUNTER TORRES MA on 01/20/21 [facility] XR HYSTEROSALPINGOGRAMon XR HYSTEROSALPINGOGRAM * * *Final [...] nondilated tubes. No spillage. IMPRESSION: Please see PRINTING AND STAMPING SUPERVISOR report for assessment of real-time findings. Fiber Optic Assembler: PSCB Transcribe Date/Time: Jan 20 2021 1:37P Dictated by : DAYANNA LEROY MD This examination was interpreted and the report reviewed and electronically signed by: DAYANNA LEROY MD on Jan 20 2021 1:45PM EST [id number] [facility] Rubella IgGon 01-05-2021 Rubella virus IgG Qn (S) 20.80 [IU]/mL Invalid Interpretation Code Immune >0.99 [facility] Comment on above: Result Comment: Non- immune <0.90 Equivocal 0.90 - 0.99 Immune >0.99 Performed at: [facility] [address], [place] [id number] PhD Randa Ochoa Performed By: #### 5 [id number] #### [facility] [address] [place] [address] Varic IgGon 01-05-2021 VZV IgG IA Qn (S) 207 Invalid Interpretation Code Immune >165 [facility] Comment on above: Result Comment: Nega tive <135 Equivocal 135 - 165 Positive >165 A positive result generally indicates exposure to the pathogen or administration of specific immunoglobulins, but it is not indication of active infection or stage of disease. Performed at: [facility] [address], [place] [id number] PhD Randa Ochoa Performed By: #### 5 [id number] #### [facility] [address] [place] [address] Consent for Treatmenton Consent for Treatment [id number] 0 [id number]#1.0 0CD:127 Normal [facility] Consent for Treatment [id number]#1.0 0CD:127 Normal [facility] Free T4on 01-03-2021 Free T4 [Mass/Vol] 0.75 ng/dL Normal 0.58-1.64 [facility] Comment on above: Performed By: #### 2 [id number] #### [facility] [address] [place] [address] [id number] 01-03-2021 HbA1c (Bld) [Mass fraction] 5.4 % Normal <=5.9 [facility] Comment on above: Performed By: #### 5 [id number] #### [facility] [address] [place] [address] Physician Orderon 01-03-2021 Physician Order [id number]#1. 00CD:127 Normal [facility] Physician Order [id number] 01 [id number]#1. 00CD:127 Normal [facility] Prolactinon 01-03-2021 Prolactin [Mass/Vol] 45.14 ng/mL High 3.34-26.72 [facility] Comment on above: Performed By: #### 5 [id number] #### [facility] [address] [place] [address] TSHon 01-03-2021 TSH Qn 2.09 m[IU]/L Normal 0.34-5.60 [facility] Comment on above: Performed By: #### 2 [id number] #### [facility] [address] [place] [address] Vitamin D 25 Hydroxyon 01-03 25-hydroxyvitamin D3 [Mass/Vol] 58.1 ng/mL Normal 30.0-100.0 [facility] Comment on above: Result Comment: Vit sarabia D deficiency has been defined as a level of serum 25-OH vitamin D less than 20 ng/mL (1,2) by the [place] [employer] and an Endocrine Society practice guideline. The Endocrine Society further defined vitamin D insufficiency as a level between 21 and 29 ng/mL (2). 1. IOM ([place] [employer]). 2010. Dietary reference intakes for calcium and D. [place]: The National Academies Press. 2. Carola MF, Pita [place], Donna HERNANDES, et al. Evaluation, treatment, and prevention of vitamin D deficiency: an Endocrine Society clinical practice guideline. JCEM. 2010; 96 (7):1911-30. Performed By: #### 5 [id number], [id number], [id number], [id number] #### [facility] [address] [place] [address] CNCOon 12-24-2020 CNCO Letter Text Normal [facility] Coding Summary.on 11-21-2020 Coding Summary. CD:[id number] Gh 0bWw+PGhlYWQ+UH9EOUEqA 77vpWMsiL2TD3mRLO6FIPX ZZPSAWQ7KEC4bqNN3WHliQ 2VybiAv JokhsUXcCW59SYr3KAQ0tF asXCqzeT4neXWtA4m7IdJh PN36jE78WHmlQCSgEiF7Bt ZpbjsgbWFy V6mqSuCggZRfHgr+PHRhYm xlIHdpZHRoPScxMDAlJyBz lVdeEY1wGn0xFGGhEODuoH xhcHNlOiBj k3weYGBaUJfjDA5joHipL0 TwsPC7GOSwk1t3Zf12uVN+ SEPhMKA7fAnuLZsqj202Gj Lcy1kiAGV8 aBEfKNffOOI1N17ul5X9NN XvDTQoBPB6vNW3qT0nwFyu zjddO7OjkPOyPrC9RMY2rJ ZoeP4fiZat eorpgD6aVhc+S29JTK4PKZ GTCE1VCht0G8TfAoinkWU+ XY01ZJLnKF22aYVbdJAnh9 ahvPl1UgSk QOJsDDV8iJkeBAmpx4PzCR FzP46ulGJgy7P4UEMpiVrz uAWyYcKxwHV7zC5hEGbzit jro9kgtgfi Amngx5vqsg56uZ89A45bKP ssGPBaSSD3QTBsASTlsJuk wv3yuV7sLw9+WYsgs7coq5 xnsZt7FdNj XRZnecIirYqiNBO7i5UgDd 05S4KvfBboy0IlXch6fc13 cWGnq2U1xJA3ONkbMTJupX 1hNFldRqJ6 WYGwKoXecC02cJRvBGdjCf 8weRubiAoeUZ7gXDOneqvc MFIrmV2tGBXwnIKytFrkKR 4wNTBpbjtm b051YkNjAZW9QVPekZXyX0 LvuT8fMhWfULXlPURrR6Cw eJDkKWdvP743EEzzCqC4ZN VfamPiY1Dh SPJvlRnsIwZ8f4U1Qy7De7 MnskrcMYE0XJfoSNI9VxF5 ZhLkZxK4I9SaVwo0SNKafH isBJ7mA1Vv HTUfizpmtjnhcYC9DJBsBO BrtN53vMObBRykUn0uj2E9 d247WQBrLGJosY01Gc8ipI ogMTBwdCBU cQ7vtzzlb5telenlDeNmQL VuBGl4FOg8BSPkzZikGnPo VNJ8TxW4APC4qZExqM5ydP chrbmyfV8n Oyc+G42jqF3nDJU9JZF2qf efRHQiqnAzVS47EO47S4Rt PjwvdGFibGU+PGRpdiBzdH ntCC3vWjZb k5xzi0AaOZlvP2JkTDAuHF mkIzw1NJHsAUH6sEQ2cH5p EVHnFAmou1O6gPB9G4Guur Xojm4xy9ow SCFfBUezC18qwOWqt0F4IF SkaPV2OPSsjGkoBvOwhR37 Oyc+SMClhYwqs7LuSaxfg9 dwz7vxmTv0 TrPbCMOogwLhsZcqNJQ3c3 FqZg64X01tRReuXAHuYAMv GYSoZYQrmWwcaq7hbJ5tAl 8+PGNvbCB3 rIB4qD6dEQYuDcC7VAvjM7 97BlIadDQwQweec1qzh3bz fMt6LqHqBVHrbiYlhAhlHO X6w3OiUq03 M21pMThfQGQiCRChSQRrFO MquMenqr2ceK7fGj7+PC9j x0hpuc58fZ42nIP+PHRkIH M0sGzpUFvb MTTvsG1oQXagKfN7QPSwAx TpzS81fAAqNMpmDa7wnHyv jRrsOQ8zCWJvdwfvw557Ul Rtu1lfXKKx vKYfEOayYPR8U29ty5B0NC XcOQXmIFZ3vVK8mA2lqWxu bjogbGVmdDsgdmVydGljYW jxFLjeH721 IHRvcDsnPlBhdGllbnQgTm XiYXs1E7LbNvm2RKJwnTbw IG6oqDAeWUedTg7lgYanbQ qyFW1gTAOa pmytt313MmFnk7enIIIeeD ApJUxgUZU9V70ld7D6OIYb VLMcPAC1yQA2zA3akJcvlz ogbGVmdDsg gkHzaVwyYUlcGQyvR518FJ RvcDsnPkJpcnRoIERhdGU6 BV59XT00cJPyd4Q3vFP7I9 BhZGRpbmct draunYS9XYYyAMWopI04Vu 7zjCcuYl6xBJUbSRB3SVDy dAIkK7ZxtY9qKjQrEWJsVC YwZ9SbsBFj RWkdM526CWigMfW7COFerh ImP9RkEXGqiKzeNkC5i5R6 Gj4QI5P0VZ91NW70nMEwa7 F2gTR1B6An SBUydoloafchuSW9FUMpXC KrrP23Wy6waFxbDv1zMILm XDK4BHLwbNOhY2UayX3dGy AjMDAwMDAw G8WfoYSwCUrhB251AGevUl G6TOMgblVkN7DhNHUahGcr OiE5f6R1Kc9IHFb1AP31SW 74sCDdx1X3 xDA8K3JyILQqyodrtahsyE A4KIYfPJKptX02Kg4tpTch Hu6wDQJvWJY9TDCidJAcJ2 IlhS4tRaXv BBQfJUUwP9PmxWIgGBweV9 95AMvpMfE1DJEthwTpG8Vc WEXtxRtkXwJ5l8A9Vw0ZEV AsXU93BEB7 jRD9NE49JE25L1GgVrdqsH FibGU+PHRhYmxlIHdpZHRo NKpdPDFdQhHmyBfwNE9gKs 9yZGVyLWNv vEotbBZjWaYru8adPZTzVM npBO4yhXsyX8JmvUO1GXHs z3l3Jf23B60kV6WtvCK+PG YjiOH9jPX4 cG1bTxAkFrH0TZtcL482Od SbpSFkJoibe2mbe2myeMw9 RrS1NRPemsMoeAtlLEZ0p8 WzRd06K87d IHdpZHRoPSIxNSUiIHZhbG dclr3aaD3fPf3+PGNvbCB3 lTE2xG3zOoHcOzI7BKamD5 49InRvcCIv Dxlbu3ylu9vkwNa0VvPuPP VuldLeyWutSZW0w3MjSp44 O1HvgTecq0VsDmm4xf99tJ Cmn5I3pOR6 T2RoYOMqmycteWXwgBmyLJ 3jBNVbuvguTXKhsT3aNCCl Q1w6VeXiLeM9ESdjW9Xnfq N0QVCzvDRj REnwQNB1U43fu5G1WCVjQC TiOYR4pTK2cE2qxKjndczv bGVmdDsgdmVydGljYWwtYW pqD196NPMg iRgnPUFnzE9hSAErcQFdsX paCU8iXTFpokziMtPGBZAR QCVuRKJJSUEOMFoOCj02M1 YvIcs0OHCp kWzeSJ7mfHTdZJjzJu1xsM ekzCjqBS1tNEGemldaBJMl eD0yRXFvuEQlrZcrYG8rED Lwqqokk193 EuYvTGB5JYHzfEYdE8CvpR 0nNzBaAKDnQUHhB2QdsXOd VNejF174GSshBrV3WUTisk EvL7XsHOFq zTtxZaY9a9A9Aw7kDx0rOb 1kHVo3VL46AP76lABfp5F6 kYU9S8QgPPJqzxunebeqiC N4NFItDCIh tL98wYMsUTivOg2zv5Q0t9 74TLPoYFFzjL64Cc8clDgd YOKwvDYMkN1epmfqq2gwwa ogIzAwMDAw WBr3JQx6IFEwoLpuUkAtVV V9GhP8MWV4yUFllM1alHar hdfwkJ3rHcb+MjYgWWVhcn P5S3MsYwk4 GLGmbSxtES3tvSLuBDmeBc 8gnLgupXckRG4bBRBqcwlv INXwgN7wCARvgVCxqSsdMV 4wNTBpbjtm m317VnAfUIL4PLLaeCJjT1 WtgV5dPyNwMQIyHMYvH9Kk zGPfQTlhH750QEjtIkW7OP QheuFuC6Lo AOLyyEggJmT1y2J9Ot2LGM 7nwOO1E5QfClk8NNWoqUbt ZK2twKVeXKukPu4yzUrijW viEA5jJVMa pikuFWPjyZ8zOXRryQDrvG ikLS8eSWXyuskao395MsZo JIY8OOLwzUGsV9WqoJ5vFt AjMDAwMDAw I7JwxHFfUKywX648WNkiHu S2USWhouWmT9FiCTFusVsg XlN8w1M4Bw0TALXjJFMeeJ JhDmC0G3Qt PjwvdHI+YZ94IDRdTS20gM TwhTErb4twnOx7UjIsAPYc PQL0gDsuIScwa3HkUICtK0 4fhWQrt4K5 PXGwjEujaBDkCeTkvDU9kQ 1yDDwgnzofr4prulfwIswh z4uxsf15bH46Y99sJLuzGX RoPSIzMCUi PSDzuEjwhh3znG7rCt8+PG EpuNF3hIX5kJ7cWhEyFmP8 EEnwU627LaBozZZzOwswg3 bta4ubwMm7 BsYiADYjbcWscUjbHED2m8 TuVj93J21iQTouFKIvZNQb HFJmJUModQmmrv7jxU9tTw 8+OK1fx5nk nm17vV61hRW+DWZlBMM5rZ ydQSkmLZWngB5cSYedUqO6 ECPxToVulB78iFZgBEnzVj 1yaWdodDog SR2lMFRfoisoq955JgScz7 crKSPtwMMlDUthXRU2P14d m4R3CLJdVXOsJPL9kXD1wF 1hbGlnbjog bGVmdDsgdmVydGljYWwtYW juX123LSEykGhbPvZytHTe H7yhyjMPXW1iKyhgtQY+PH TpXGA7kEgm NGfrSENpdB5nBRXqV6e8Qo TlVkC3PDjfD6EontL2RWLs yGBtBYGydXZKkQ9byyamd7 xvcjogIzAw IWJvOOh1EYi5MCPnnHqvJe SdWZK7WtL5KGV4kAZojV4c lCrgljposE1hYlv+RklOOj wvdGQ+PHRk PVY2mSlsZEzxSYCrhJ7kEJ GsN9j5HcZvCwL9UVhuT3Gd itJ2UEFyoJHjXOOaeCSAuC 7fxwjwd4ii jpwvCbYdMBVcGDd0BVo2CU TnaQbvRuDpYYE5SoD6TXS5 yACbwX8ogMaznmomxW4kSe c+TVJOOjwv dGQ+MMWtMQD3nVocGHvwEH McvN5aGSNzN6k8TmXyFjG0 MJarL8NiejV9MODumEGeKU UmpAELeN6j ihpwk3lbbboiVsVmAOMzGL w5RTl6JWKonXtaZhTkOJE9 DsY2RPS4dVHdlK7laJcdft rsoQ8bImh+ WXO0ORP5VT99TB12A5BhKg wvdGFibGU+PHRhYmxlIHdp ZHRoPScxMDAlJyBzdHlsZT 4uAw9qAKHv LWNv (more content not included)... Normal [facility] COVID-19 ([facility])on 11-05-2020 SARS-CoV-2 (COVID-19) RNA REEMA+probe Ql (Unsp spec) Not detected Normal Not Detected [facility] Comment on above: Result Comment: This test result should be correlated with clinical presentations and medical history by a healthcare provider to determine its clinical significance. This assay was performed by a reverse transcriptase real-time polymerase chain reaction (rt PCR) method on the [employer] system. This test has been authorized only [...] or revoked sooner. Performed By: #### 2 [id number] #### [facility] [address] [place] [id number] SARS-CoV-2 (COVID-19) RNA REEMA+probe Ql (Unsp spec) Pass Normal Pass [facility] Comment on above: Performed By: #### 2 [id number] #### [facility] [address] [place] [address] Specimen source Nom (Unsp spec) Nasal Normal [facility] Comment on above: Performed By: #### 2 [id number] #### [facility] [address] [place] [address] Consent for Treatmenton 09-0 Consent for Treatment [id number]#1.0 0CD:127 Normal [facility] COVID-19 ([facility])on 11-02-2020 Employed in 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 NO Normal [facility] Comment on above: Performed By: #### 2 [id number] #### [facility] [address] [place] [address] ICU NO Normal [facility] Comment on above: Performed By: #### 2 [id number] #### [facility] [address] [place] [address] ? Unknown Normal [facility] Comment on above: Performed By: #### 2 [id number] #### [facility] [address] [place] [address] Resides in a Congregate Care Setting Unknown Normal [facility] Comment on above: Performed By: #### 2 [id number] #### [facility] [address] [place] [address] Symptomatic as defined by CDC YES Normal [facility] Comment on above: Performed By: #### 2 [id number] #### [facility] [address] [place] [address] Physician Orderon 08-27-2020 Physician Order [id number]#1.0 0CD:127 Normal [facility] URon 03-22-2020 , QUAL Negative Normal NEGATIVE [facility] Comment on above: Performed By: #### P REGU #### [facility] [address] [address] Juany Mccarthy Covid-19 PCR ([facility])on 02-02 Covid-19 PCR DETECTED Abnormal NOT DETECTED [facility] Comment on above: Result Comment: This test is not yet approved or cleared by the [place] FDA. When there are no FDA-approved or cleared tests available, and other criteria are met, FDA can make tests available under an emergency access mechanism called an Emergency Use Authorization (EUA). The EUA for this test is supported by the [place] of Health and Human Service's (HHS's) declaration [...] used). Performed By: #### C VDTB #### [facility] [address] [address] Juany Mccarthy EUA Statement SEE BELOW Normal [facility] Comment on above: Result Comment: This test is not yet approved or cleared by the [place] FDA. When there are no FDA-approved or cleared tests available, and other criteria are met, FDA can make tests available under an emergency access mechanism called an Emergency Use Authorization (EUA). The EUA for this test is supported by the [employer] Supervisor of Health and Human Service?s (HHS?s) declaration [...] consistent with SARS-CoV-2. Performed By: #### C [facility] #### [facility] [address], [place] [address] Juany Mccarthy Encounters Encounter Date Encounter Type Care Provider Facility Start: 03-19-2023 End: 03-19-2023 ambulatory MARZENA JARRELL Not Available Start: 02-22-2023 End: 02-22-2023 ambulatory CAROLYNE Kobi EDMONDS Not Available Start: 03-22-2020 End: 03-22-2020 Patient encounter procedure JOE CUEVAS Facility:[facility] Start: 03-03-2020 Encounter for prepro cedural laboratory examination JOE CUEVAS [facility] Start: 02-25-2020 Encounter for other preprocedural examination JOE CUEVAS [facility] Start: 02-23-2020 End: 02-23-2020 Patient encounter procedure JOE CUEVAS Facility:[facility] Start: 02-20-2020 End: 02-20-2020 Patient encounter procedure JOE CUEVAS Facility:[facility] Start: 02-16-2020 End: 02-17-2020 Patient encounter procedure JOE CUEVAS Facility:[facility] Encounter for other preprocedural examination JOE CUEVAS [facility] Encounter for prepro cedural laboratory examination JOE CUEVAS [facility] Payers Date Payer Category Payer Unknown [id number] 2.16.84 [id number] 1994 Unknown [id number] 2.16.84 [id number] 1994 Unknown [id number] 2.16.84 [id number] 1994 Unknown [id number] 2.16.84 [id number] 1994 Unknown [id number] 2.16.84 [id number] 1994 Unknown [id number] 1959 Unknown [id number] 1959 Unknown [id number] 1959 Unknown [id number] Progress note 01-21-2021 Note Date & Type Note Facility 01-21-2021 Note HNO ID: [id number] Author: Dax Robert MD Service: ? Author [...] which included preparing to see the patient, [id number] patient care, completing clinical documentation, counseling and educating the patient/family/caregiver and ordering medications, tests, or procedures. Dax Robert M.D. [facility] Procedure note 01-20-2021 Note Date & Type Note Facility 01-20-2021 Note HNO ID: [id number] Author: Renetta Beltran MD Service: Reproductive Endocrinology [...] Renetta Beltran M.D. Reproductive Endocrinology and Infertility [facility] Progress note 01-20-2021 Note Date & Type Note Facility 01-20-2021 Note HNO ID: [id number] Author: RT Juan(R) Service: Radiology Author Type: [...] Davison RT(R) January 20, 2021 12:29 PM [facility] Progress note 01-06-2021 Note Date & Type Note Facility 01-06-2021 Note HNO ID: [id number] Author: Dax Robert MD Service: ? Author [...] images. PLAN - HSG Dax Robert MD [facility] Progress note 04-21-2020 Note Date & Type Note Facility 04-21-2020 Note HNO ID: [id number] Author: Alesia Bermudez Service: ? Author Type: Nurse Practitioner Type: Progress Notes Filed: 04/21/2020 5:19 PM Note Text: unable to reach, left message to return my call Alesia Bermudez, PLAYBACK OPERATOR.GUILLOTINE OPERATOR April 21, 2020 1:04 PM [facility] Progress note 04-02-2020 Note Date & Type Note Facility 04-02-2020 Note HNO ID: [id number] Author: Dax Robert Service: ? Author Type: Physician Type: Progress Notes Filed: 04/02/2020 11:43 AM Note Text: Consultation requested by Dr. Cuevas in [place] for an opinion regarding IVF. My final [...] which included preparing to see the patient, [id number] patient care, completing clinical documentation, obtaining and/or reviewing separately obtained history and ordering medications, tests, or procedures. Dax Robert MD letter to: Joe Cuevas MD [address], [place] [id number] [place] [address] Summary Purpose Family History No Family History Records FoundNo Family History Records FoundNo Family History Records FoundNo Family History Records FoundNo Family History Records Found Advance Directives No Advanced Directives Records FoundNo Advanced Directives Records FoundNo Advanced Directives Records FoundNo Advanced Directives Records FoundNo Advanced Directives Records Found Additional Source Comments INFORMATION SOURCE (unrecogn ized section and content) DATE CREATED AUTHOR [facility]2020 [facility] DATE CREATED AUTHOR AUTHOR'S ORGANIZ ATION 01/22/2021 [facility] DATE CREATED AUTHOR AUTHOR'S ORGANIZ ATION 01/22/2021 [facility] DATE CREATED AUTHOR AUTHOR'S ORGANIZ ATION 03/31/2021 [facility] DATE CREATED AUTHOR AUTHOR'S ORGANIZ ATION 03/20/2023 [facility] FOR RECORDS PERTAINING TO PATIENTS WHO ARE [...] BE BASED ON THE PRIMARY CLINICAL RECORDS. [employer] provides no warranty or guarantee of the accuracy or completeness of information in this document.
[2023-04-22 07:07] LABS: Progesterone 1.2 ng/mL (.)
== END 2023-04-20 15:43 | disposition home or self-care (01) ==
LOC: LAB 15:43
PROVIDERS: PCP Family Medicine; Visit Provider Obstetrics & Gynecology
DX: N80.209 Endometriosis of unspecified fallopian tube, unspecified depth (principal); N83.9 Noninflammatory disorder of ovary, fallopian tube and broad ligament, unspecified
CPT/HCPCS: 36415; 84144

== ENCOUNTER 2023-05-16 16:09 | Outpatient (OUT) | payer BC, SELFPAY ==
--- OUTSIDE RECORDS SUMMARY | 2023-05-16 16:24 | XMS_ITS | CCD ---
Author Name Unknown Address [address] [facility] [address] [place] [id number] Organization [facility] Care Team Providers Care Ironer Name Role Phone JOE CUEVAS Consulting Unavailable [...] 03-24-2020 Chronic Other aftercare (1 source) Other director long term care (current) drug therapy; Translations: [[facility] CURRENT DRUG THERAPY] Onset: 03-24-2020 Episodic Other [...] Range Facility Coding Summary.on 01-21-2021 Coding Summary. CD:[id number] Gh 0bWw+PGhlYWQ+KF5YLFOvU 93qoMVizA9MV7vZZE4YJGD PXUADWC9IDR0qqOZ1YFajV 2VybiAv GxlilTVpLN39UNy2DEA1zT mzDHgskZ1prZSrE3w1KdYm KA79aM67ZCjbFTVcDnN2Pa ZpbjsgbWFy C8diUyOdrZCvGbs+PHRhYm xlIHdpZHRoPScxMDAlJyBz nTgnKV3qZu9gXYKbGLOarR xhcHNlOiBj e7fhUTQeUVcgTK4adJboQ4 IweFY2NBYdv1l5Kg68qGU+ IUHvHJH4oPgpVLsbz129Iw Ton3cnMVR2 iTDxHJkqXYA9L80zf4G7VZ AdJEYfSDH9gKX1kD0mdInw jpviI4IcgPEhBdG2YFJ6iZ WecN9lmScw bjsfnT1fSyo+V51ERH9BRP CMNB8XWmi7X7CeElqvnMC+ QZ37ZGBbPU06rYAzePJox0 rtxTt0IpCn PVXbCQN1xFcuCBzij4DcIL HvY98iuYJxq5Y4BEWslDqi uLXtYmNrgGJ8aT7oLAkciz bey6egtuqt Footm7jgzj35fK76U73bEN hhIDNhEKP2JGMoKRYgzOnm jp3iqN7uIz5+KTsqf3hrj7 rkeAi5LdGf DXFjlzGisBjoGSX0e2TuNz 81K4SsdRahc7YgMsq8ys85 iDRtp7L9tDI5KWzoEPKqgO 5jAItiSqV7 QESzAhJzkY64pCZyQMuhAe 2saDppoFobAE2fNAZfsull VNBljO7eJYKrsMDtcBtuOB 4wNTBpbjtm p062ZnGsZJG5GNIrpEQnL9 AmcK1oNzKaPULbTEEnX8Cx bRHqYBghV978LGwvIsA9QR FqlzOnF2Ei ZAGliTolKgR7n7J6Ij7Qw3 DxzqgxCWU9HFvnPYTwRxA1 MeDvUpH0P9UaYzw6YOOntC fpKA2sE8Re RCCvxbcmoakcvYN0BAFqNF JywH35zGPnFPauNc4ng7E0 j692LXLcDZSfeS26Un2bbJ ogMTBwdCBU iS2mzerlz2kzuyoeAqSdGL GeILf4XOp8BKRfrPiaKnIt FPY3YeM4JJE6vXNwgE0ccS gnyuauuO2c Oyc+V39ykB7aQOO9WFI2rt jkBCKooaEoUF77KV70M7Yp PjwvdGFibGU+PGRpdiBzdH ufQI5lBbHs f1xmk8XlGUolP4ReCQLyDQ ybIdg8RDMvVAV6pAK1cU7j HPSmMOqtz0X7wXK9H9Drac Ijwb3si0rq ELHnBTciI59npLZmp0O1GJ FpwUX9GEEgvCgrOiIpbJ88 Oyc+KCNnqOgdy7AmNorfl8 ymo5rfvCn2 GhOuMVFzsiHpbYswNHD0i2 LbNq81B41dPObfOKQoOQKy MTGcZDYrxYkmly3oqM5fFj 8+PGNvbCB3 fMN7bC6fLTJoUsA9IMfmZ9 82XjGhqMXiAoztz1nyi3ff lSf2MrPaSONlcdXweWlgGE X4d9GqZl05 B23lAQltXTJrHYXqCPXiJL XheNpyln7akA8oPy0+PC9j h5xfry41wE22qSY+PHRkIH M2eFoxSFab QRMhqH8lELwxBqP5QZIgUg UivI46pJPtFMsjKc4yaKfy wZedXN3vLVMfccfas804Qg Ysk6tjQTZj nZQsEEtaEHP3Y74rs2J9NO YqLWWuJPE6jPC7pK7xeJpn bjogbGVmdDsgdmVydGljYW zbZBydW928 IHRvcDsnPlBhdGllbnQgTm VpMBx1Z3EpXdu9LHLbrIxn JD7iqXKkHZuuUu2xbYmouI tnLG9sORTs expsd277GrAxr7twSRPccD WrSYkaLHZ7O95dv6I3BDEb ODFtQTV9cKR2uZ3zkZfqsv ogbGVmdDsg rhEqmGxvIWbvTRclQ740IS RvcDsnPkJpcnRoIERhdGU6 UT43PW76aVVhs1C5pYX2O4 BhZGRpbmct szvnyPR3OMAnCAKomG04Gt 9osUazTc0jFUKrOFG0HPJg ePYoO6YyjP4rUsLoVLWfDG YxK3JxgOHz ECszH950LUdvEvK7QZHncv AxQ8TpHMFtvWtlNsS9i9L9 Kk7JF1I7AV94HU41uWSmr0 X4sHC5C3Zp OHWpsbtslzglrZL3FFEyDH YphQ97Yc0joMluEg4rCAYm YTG5CYUnhTWzJ8EmqV0uSo AjMDAwMDAw V4KdrCGpFFgaL787ZKksVo G4VHIomfVgU8RlJPBppPhf MaM5t8Q7Ru2MSWi8TC58LT 62aQRob6X1 iFT2Z0IvNTThyfgfttnjuD Q4NIEvXREmzZ77Sz4uvPwj Yg0xKSDiRXF7LPJidRIvB2 DksW5cMkBl HDHgHVYeE5CdgZEfYLzbL3 11WZmlVsU8GFQnviEzC8Ls BGXrlWhnUkI4z9T4Wy4ZGV EvLY99MOU5 jSL5GM76QX44N3FfRosikO FibGU+PHRhYmxlIHdpZHRo FUmpJQYvMpYcsKbfPZ7mXs 9yZGVyLWNv qAxfyYQyNtPey9zrDRPsQR zoTX0ghDmrG3VgzBR9LWAk c6n5Qt23M21dD3SogJD+PG GxdYT7zNR8 mU6cQwRmRqP9BUapK067Dn WfmOYwOdyyy3gwz8vndRm4 KcR0XXRfxrQvbTqfHVU2f8 UuAs65P61w IHdpZHRoPSIxNSUiIHZhbG dqio1ukH3eIi8+PGNvbCB3 kOJ2sD8eNvGuCjG7KLrdT8 49InRvcCIv Qifgl1nad7cnnGr2YuQwFT EpjtRjvOmiUNG9w8OvDz92 H0XdtZxnx6WyHof2ao98iJ Xvq0W0kHV6 P6XvJHBsctyajKKckEreOB 0nXKWrykvbLYNcqK6oYTYi Q5y2QuZxMpB9EMifE0Jaxw O2VUHmjWUp VKomUYG1Y69fq4A0ZWAkQY ZrQZQ9lFW0wM0hrBbqnyvl bGVmdDsgdmVydGljYWwtYW qyN514DEMm cJmqXTKkhT0kWOKucLTtlZ ezKC4dBIToikrmLvLSHTRV ELVuKWBPKGLBXCyQFs94P0 YmZzl6SHCn bSvrZV0lzCBrWHajUs1txU xguPqtCC1qIXJttzrpZHPl eS3sVHCojHHlqZfjOB6gBW Wctelti783 YxUaCZK9YKWbaPTyC0PmxP 7bUyXnECRpCQSyN7FvrNIq YBpjL546CWleKbQ3LXIvod CkM4PaOKZa oSulXsK7p8R4Su1wWg8lJl 0lYMv3XJ85PI65vQJug5M4 sZA0G6NtIJIuwkyrlekozJ M2ZAYzVQNn mF24cTVaFImkLx9fr5I0t1 65GGFyUELnuV80Hj7yhYfg WOIklRXQeG0ttutlv7mrix ogIzAwMDAw WJd0THu9WGWjaAsrTrPpSE W4WiW1WJO6bCDpiQ8ziVhj ochpjC1mFhn+MjYgWWVhcn C8G4EqNrv7 ATYvgAhyRU5ifVMqIZmuLn 2iyYvajUgsSB3jLTIsughr GTLqvD7xLTUxxGAdiJtgMI 4wNTBpbjtm r856QcSrHKI2IHMltYYuB2 WhqN1iAsAjJBEgAGGcG3Gk aRKyCZgqI527HVnzOvQ1SP HtyhUoQ8Zo SPMjiEszFkY2w3O4Bp4DYT 2piMU8V4RnJcw2CAEpiLcb WM3ydTHhVSyoTr2ntYqlqJ zmGT9uKGIn hianQHEjfJ8aNJDedRFcnU uyAU9aAQMgtrhis945WkRx IDY9EFBofLWiV9RpsR4wKm AjMDAwMDAw C0NnyEAhSHauC620PKjsMl I3BUKfvvDvV3ZoXBRrlKxj ZkK9u6L5Ze0VeQOrUHYzGH 26FE23HH57 V6OoWylloCQigPK+PHRhYm xlIHdpZHRoPScxMDAlJyBz wRacHA7yIa1kOBJzWZFtvX xhcHNlOiBj b5erYGFrHVfvBE1dzNmtF2 LmjJM0DLZcb4a1Ng26P19t A5LumIP+EPPnsJB3gRV7mT 0xEpJqItP9 AFuqJ940WzQrnJNmCqovx7 mhf4wlfZw9MnTfYFMlbaUf tWppUNV6i4DmWn18G61uDF dpZHRoPSIy NIZhELGfaPvnca0mkL8kNp 8+MEOyxNN7cBC1zQ0dYsZi JhT2QGcaC104UtQryNHiQv xhI59cX8Uh dXA+VQYqDes4RBCrvGfzMC 9xzWLnWFclTl7tJUH3BmWj HxMhZEovJ2QcEBXlucszes qcaRN6GAOo SDMqcE40Vt6nvEkuLo1sZM HtQCK0LKFtxGTdR8TnnQ6t UfUzKZBiSRNyY1YhhGVgGX fmY686GUne KlT0WBSmfxCkI4RwMBFyaO gsOiC5j9L0Xl0SxAsdfOOk RD7iGvUnIJh5Y6DuOvy3NT HxzYotON2z bUXcVJvvLy2tpAwtbOpxLW 7oEEVmoekhq533HgLmg0fb AAXzdEGxZKukVVT6V40xp1 F5DDLvOVEg BEN4dKF6rC6ppYqzfobotE VmdDsgdmVydGljYWwtYWxp O311OLVmhExfTvLJJtp7T4 XxVqa5WZLw rIuvBM1iaAReCLxqRv0exP lujVflAV0bGBYsunclg441 HvFwu0ucWLAtlBIdYRalXN L5A90bt7T9 BQKmPROpNFQ6hYV1tL1gxS lnbjogbGVmdDsgdmVydGlj OQylGMgaO899ZACfjZqkDx 5GCai5T5Py Fjw5JSCnsIjoOA0gyTYgFM siTb5hqAbdaHicJU0aVZWj zribl594QnHjc5qvEJIsuC QgVGltZXM7 J68iw8O3IULqTWCpBGV3nB C2xO1vcQesirodjXWksTwa ybQcsOpuSUanNZryL603NM RvcDsnPlBh eWVyOjwvdGQ+KY32pb96F6 AiDrhnOvv3BOFoSZT3yAL0 kW3iFIZkVVrsa9U5zLL0N9 HppjTnmc9l b2xs (more content not included)... [facility] Coding Summary. CD:[id number]:2785817A Gh 0bWw+PGhlYWQ+DQ2AYZHuT 01jfGZdvE9YV3qAOL5QHWW PARGHGR9XBH2uzGR5ICfgS 2VybiAv EswfkBQeIY84HOe6ONJ1pT oaAEgouB1prRZsM5l2IjGa IA01eG78QKjeWHEuLiP6Ya ZpbjsgbWFy G4klHvRtlSEaDxk+PHRhYm xlIHdpZHRoPScxMDAlJyBz yGziJW5gQv7aDMYyMSAwxH xhcHNlOiBj x0osZWJgPUuoBG7evTmjG5 XvwRE1TIIca6o2Cd67vKI+ FPDsPVL1jMfbKCvej486Pz Ena6peQPL5 bKVkTNmcEAP0W54au5Z0MJ KjRADpPTE6pNZ4yT2vgTww smgjV7ZfjAMhNeM7NOH7pM UymI9cnAoi dwczqQ1fPvz+D06UYJ8NEY OFWJ6FNfi6O1FbEtyyfXW+ IS12KTGrMZ51wGOdfABjq9 cmxNc2XoFa ZDMdTEL3zZcoQCsnj7UcZQ GhF32pkSMpv8M7TMLhnUrj vDFmFnOomHY0vI8xPEbprf dyx5tdmxng Ginwb1qjcp32fB85C49iKU hmIKXmFSD8ZHJjSPNvxTqv vm8beA5iMo6+GWecz6zqo7 girLf5ZsQe OERswrQfqVncNXG2l8MiVx 42I8RwvXgnw5DoNwc7gz83 aEToh7H8tKJ8VKmzPMCnjT 5dUZvaQhF8 FQSnOiYtoP37hMDwGJvsDc 9ngXgfzBzvPF0eGWIyduhz BLMaxN1jZCFzuZTjhNeqQN 4wNTBpbjtm e658BxAbSUR8VYLdzQGtW4 FrtG5rQpDzKLYxQEWgY1Eu bCRgGMvlH027PLyaRwH4GM WbjyUjU6Gw PMNbwLldDyM2c7B9Uo4Gr4 IdjijwQRW0OCjiWCVxTlE1 RgYcOpS8R1LaHyu5PBXpuP prHT8kC9Uw TYAjixebhtgezJY7DTSxCB SogR47iAEyIIugZz5cr5N9 u638KLDuHHMhyQ30Kh1jnR ogMTBwdCBU eT4mokulo2crmgfwLvMyBI ZkGUy7YWo0TZUljNybKyZl AQQ0OcG8OGD3hAWszA7epJ bvgtsayY5z Oyc+Q38cqI8sHZF6HIB3ok deIEZbfrBxDV71LB47N3Sw PjwvdGFibGU+PGRpdiBzdH jiZL3hNvJe x4xhw8WyCAckC6AbPUUgWJ jiNvr6EQEvJXH2iMK8iS1z LXZzXSgvc3B7kSZ4X2Gnnt Zraa4kn0ph AVJiSErzU31ssZVil4J6WG OkfEE3ZYThtBghPvGixU29 Oyc+VKVtiBdiy8AvOatdz3 ktx6trhDg1 EsPdQNGlowDfgXxaNYX4e0 IqJl30H96hRDukYGZvLFSs QYCoITDqbMmnwo2vzX0aWr 8+PGNvbCB3 zVI7sQ1mAVHgHlU0NHfpA6 15VfArbUPlUkdpe8nzr6rg pBw1XtAnYTRolyLzaCbiJC Y9s2FtUh21 C96zKWviQHDaYPSgZXAvBA RuwCbzxr2tsO3hCp9+PC9j h3orop91rY56zKO+PHRkIH S5sIavCIab JTRegE5mYSrxKzL3QTYcGv GicW67iFUzRAryHi3doYbo hTfkKH7uCDCpzmjbm409Bz Ezq8kvLTCj cIUjLUfhMGM5Y77az4E5BJ RhLLWfXXC8nOB6bP3mtPdv bjogbGVmdDsgdmVydGljYW tlYRwhP397 IHRvcDsnPlBhdGllbnQgTm WbHFs9R7XwFnc0PQJgoUmo ZQ2xdKBzXRpzYm9wjBgubN meXQ8tPKRh fhirj986ZrBao9wrNJFwkP XdILbqRNU1Y34fp5W3SXJo NFWqIUN3tVJ5eN5mrDjjid ogbGVmdDsg nqKojLumUWpzYJnnT252UC RvcDsnPkJpcnRoIERhdGU6 FV04AR56wFChy5Y9bHZ2Q1 BhZGRpbmct hgzoeYI8BRYyYUYnyZ85Zq 2jwWqxAi7lCRWtVEB0KEEe pHGzZ8DaeB6kZwFhTMQbRL DcJ6KyeYUl JGomJ265EEhfPkJ8DWKccj XoE8IbYWPwvWysHtJ1a3N3 Va8FG8E5UR62OT11eDTpx2 F9uIV2R7Sa ZASojtkmcowcsPF7BOJbOE YwyN46Yr7mcPjpUl9wEKRf KLI6QQAywZRjE0KugQ6pUa AjMDAwMDAw C1YmhPBaXJwxX344TDjhRx S1POIebaSrZ3IbXNUipIkt EcN7y9H0Zb2MGWr6YK53AF 16wERqf2U7 nVI2N3LcMWFtlaxcvyvdsV P7CSIrGKBuxK32Zb3yjDwl Mh8cORGjVFM6MOVcpXXoJ2 UtnI0gRdMh RITtWNXlH4JwsMUdPKmwF2 29ZIiiVcV1AXRtmaTuA2Vo GBGvyIwiLcE7g9Z8Qs6PHV GsAL35BDW0 pRY5WI26MJ28Y8RgRxcqhB FibGU+PHRhYmxlIHdpZHRo DFbbRKXvAvTaoXrjNF8dBl 9yZGVyLWNv jKhqbFXjRbMem8ugUZBkLB yrMH2agBfyJ8UknOL6JZNg b4p0Sl74F68eD4XqyMB+PG OhvYG2eTE9 fD3uUzOxIjC9IOakE177Qv LklEOlFhhyz1oqs4hhuNt7 RoX0ZKZzczEmdFlmOVZ6g9 NaPl02D55i IHdpZHRoPSIxNSUiIHZhbG wieh6kiY0xTb0+PGNvbCB3 ePB2jJ5mNoWsYlL4LAtuN3 49InRvcCIv Fwnyi3knv3bldIt7QaNbWU DjavYplDrjVIE7n6VfMl95 W3LwnKkyx9YkZcp2kp02qI Qib5N5iKW8 A9OgWSGrpccebXRrdHlnPI 8mPZAoxnynKKSlmO9mRXGr X6j2HnTqSxL0LLhyP7Tgfm Z9VWXmmQAy VYecDAZ7R66zf7S0KOTyDM QnWJM9jMV1qU2jnZnmychm bGVmdDsgdmVydGljYWwtYW niZ847BFWu gQhrGHEulM0bQGPwzYUcjL lpPJ8iLVRcvluiAvMNQGYM ZMFeOPETJCYMBYpNZx88F5 YrHno3TSPz bGejQB9qsFOoGNkvXs8wrZ nuzQalYC6lRLRguaxvXXNc fF2jLMPqrCFjuScwYN3zAW Vgylnrb801 WvWqINZ0ZOSocRIfB4ZicN 2qXtUiDVEnAITrN8UwiBBv UWqdG994MLxpWaY8ZXZbsj HaS1KxFFUg bPbwGyJ6h1T9Hs2iBw5lGr 7vBJy9HA22SC01jSRfk7M6 rMH0M7DeFDCdoowrjwefkG O9KOHuUZJh pL90wHXqBVmmNs2gb3I9e5 26NDQpJILrwU54Rq6loVcz MITanSQUuQ3ejzamr3kmid ogIzAwMDAw PRj9DCh4GHVsqHazOjBqJS R1LnN4IZO2xCOttW9aiVyr hmyneP7gCge+MjYgWWVhcn M6B6LxWag1 MVNzdVobVV1quXHsBAqyLv 0pcPrtlCvzAX1oWBNmadoc TFUhlS1pVUMgtEYqsPfvLJ 4wNTBpbjtm k107QtIpSPX9IZRhqSRaY8 LswS6fDiYxGFHzEJZxL1Hd qSBcFFhaN404XCllHqY2HA QfuwQfH0Jc GERkpDazBwX7f4S0Uk3GGL 4vsVS2Y6TcXhl7QIRwcStg PE9gjOHoWAjoSi3avKdztS ihHH6kAIPl bjkqBWLxtT9cKXHznHThjB tfKW3fGXTwzlqrf786QvVv XNE0ESLqkCHoP2LbkY5vOm AjMDAwMDAw P9CkyAIzMAotC119QDcmLg C1ZTKxblSfW4DjGNZgmSks HaZ4b8X7Uh9LuKRiMCEyPH 84DX29PP92 E3VdPuupqVPftDG+PHRhYm xlIHdpZHRoPScxMDAlJyBz nHspXS2vVa4cIHStYYQhyY xhcHNlOiBj x2osWTXfEWbdEZ9kzVlrC6 RhgVD2FVPfz0r7Mo22E39f O1AmeBH+AXRomJV8gNV0mQ 2wTzIzGfS1 UQhfP949UcPubBIyUmshl7 fly5hxbNk0DxHnBMJyrpIt kRywQNX4k0DoEz36V48hXH dpZHRoPSIy RMFrDBOcfLvukm2xvJ5tOu 8+STNagUI7bHI3dZ9rYwTl TrV0XGjdS361CvMrtDOhHs emI11tR7Ly dXA+FPQjMgn3PSQunHxiXC 0amQFlFIkaXw0nUDQ3KtQc HyBkKWjeD6TyBAWdvmbtog mjkDZ7ESNx TYTkkE54Vo3ncTlnEd3sOM OxCAU9OHMouUVzX0NhfD0l JyYpAOPpKNWcC0CzoYEhFD xqU189IWyp RhV2INAwnhGaX7ZfDKHmkO taFcA2g6Q7Ea4UePufnUJb LQ8jWcDwPMg6K9TpDas5WJ IqrHtyJF5i tWSbVAxeWr6snGfzeTsiBU 5fJCTdnrjya786WzPwi9ge FHWvuOJiASrgVOW7K54ql6 D3BZYuGZTs CCO9iPG3lN5psSohdpwpaC VmdDsgdmVydGljYWwtYWxp F553QRGalWlrWrXWGsp3X3 JmYqh7FMYs dJejXC1yhPCyHIohWr1ilA hvtVarRJ1yGNLkcbcyz408 QrIio7utSUAzcSDxVQbzTN U1M99sh2E1 HCDnDRBqXJX5xAF1tA3jtH lnbjogbGVmdDsgdmVydGlj VMpaXDblV230QPScpIjdQj 3TSak6H2Nu Qfs5SRSxyZxiZT8gtVFtTY guYi4vsUzwrMstDV4qSGCb abafc141LrMug6ewNIQudU QgVGltZXM7 H95ua4J8HCKfLGJaWFE2oM G0kJ8lfXgbilownSZpnNks gnFtwEhhDZoaEFvmC293VG RvcDsnPlBh eWVyOjwvdGQ+GD23ta54M6 SfJggsMfj9XBCwQSD8aSX6 bR8lLIYvNYxpa3H2nLV1Y7 BjfrZrmp1b b2xs (more content not included)... [facility] CNNURSEon 01-20-2021 CNNURSE Nurse Visit (REIAV) ALMA ROSASUE ([id number]) 1995 F Date Time Provider Department 01/20/21 11:45 AM [facility] During your visit today, we recorded the following information about you: Referring Provider: RENETTA BELTRAN [[id number]] Allergies As of Date: 01/20/2021 (Not on File) Date Reviewed: Never Reviewed Reason for Visit: Nurse Visit [792] Primary Visit Diagnosis:Encounter for fertility testing [Z31.41] Other Visit Diagnosis:Pre-procedur e lab exam [Z01.812] Order(s):HCG QUAL UR B/O [[id number]] Order #: [id number] Prescriptions as of 01/20/2021 - Norethindrone Acet-Ethinyl Est (LOESTRIN 03/24, ,) 1-20 mg-mcg per tablet Take 1 tablet by mouth once daily. in continuous fashion Problem List As Of Date: 01/20/2021 (None) Encounter Status:Closed by HUNTER TORRES MA on 01/20/21 [facility] XR HYSTEROSALPINGOGRAMon XR HYSTEROSALPINGOGRAM * * *Final [...] nondilated tubes. No spillage. IMPRESSION: Please see VAT HOUSE SUPERVISOR report for assessment of real-time findings. Exterior Work Helper: PSCB Transcribe Date/Time: Jan 20 2021 1:37P Dictated by : DAYANNA LEROY MD This examination was interpreted and the report reviewed and electronically signed by: DAYANNA LEROY MD on Jan 20 2021 1:45PM EST [id number] [facility] Rubella IgGon 01-05-2021 Rubella virus IgG Qn (S) 20.80 [IU]/mL Invalid Interpretation Code Immune >0.99 [facility] Comment on above: Result Comment: Non- immune <0.90 Equivocal 0.90 - 0.99 Immune >0.99 Performed at: [facility] [address], [place] [id number] PhD Randa Ochoa Performed By: #### 5 [id number] #### [facility] [address] [place] [address] Varic IgGon 01-05-2021 VZV IgG IA Qn (S) 207 Invalid Interpretation Code Immune >165 [facility] Comment on above: Result Comment: Nega tive <135 Equivocal 135 - 165 Positive >165 A positive result generally indicates exposure to the pathogen or administration of specific immunoglobulins, but it is not indication of active infection or stage of disease. Performed at: [facility] [address], [place] [id number] PhD Randa Ochoa Performed By: #### 5 [id number] #### [facility] [address] [place] [address] Consent for Treatmenton Consent for Treatment [id number] 0 [id number]#1.0 0CD:127 [facility] Consent for Treatment [id number] [id number] 0CD:127 [facility] Free T4on 01-03-2021 Free T4 [Mass/Vol] 0.75 ng/dL Normal 0.58-1.64 [facility] Comment on above: Performed By: #### 2 [id number] #### [facility] [address] [place] [address] [id number] 01-03-2021 HbA1c (Bld) [Mass fraction] 5.4 % Normal <=5.9 [facility] Comment on above: Performed By: #### 5 [id number], [id number] #### [facility] [address] [place] [address] Physician Orderon 01-03-2021 Physician Order [id number]#1. 00CD:127 Normal [facility] Physician Order [id number]#1. 00CD:127 [facility] Prolactinon 01-03-2021 Prolactin [Mass/Vol] 45.14 ng/mL High 3.34-26.72 [facility] Comment on above: Performed By: #### 5 [id number], [id number] #### [facility] [address] [place] [address] TSHon 01-03-2021 TSH Qn 2.09 m[IU]/L Normal 0.34-5.60 [facility] Comment on above: Performed By: #### 2 [id number] #### [facility] [address] [place] [address] Vitamin D 25 Hydroxyon 01-03 25-hydroxyvitamin D3 [Mass/Vol] 58.1 ng/mL Normal 30.0-100.0 [facility] Comment on above: Result Comment: Vit sarabia D deficiency has been defined as a level of serum 25-OH vitamin D less than 20 ng/mL (1,2) by the [place] [employer] and an Endocrine Society practice guideline. The Endocrine Society further defined vitamin D insufficiency as a level between 21 and 29 ng/mL (2). 1. IOM ([place] [employer]). 2010. Dietary reference intakes for calcium and D. [place]: The National Academies Press. 2. Carola MF, [place], Donna HERNANDES, et al. Evaluation, treatment, and prevention of vitamin D deficiency: an Endocrine Society clinical practice guideline. JCEM. 2010; 96 (7):1911-30. Performed By: #### 5 [id number], [id number], [id number], [id number], [id number] #### [facility] [address] [address] CNCOon 12-24-2020 CNCO Letter Text Normal [facility] Coding Summary.on 11-21-2020 Coding Summary. CD:[id number] Gh 0bWw+PGhlYWQ+FA7TKDMqN 39fbSUkcS3IL5wICV7XOAT XYXWXIP8KYZ5fxOV9LQhaN 2VybiAv StqvaGCnAN50NKw4EZQ1yT syZRdpbG5phJAkC9d5BrDl GX59fU67WMiuLIBpMaT9Va ZpbjsgbWFy H3xnPpNhwSSaIcc+PHRhYm xlIHdpZHRoPScxMDAlJyBz mFpzWV9wYy6jUUCwPNNtzV xhcHNlOiBj e4hhDRDaYTneAU1iqGegK5 UmxDJ4YEMxe6q6Hn90zFO+ RBGdIVX9bRfoUMomi809Mb Zhv9ruDRQ5 bERyIRodXPM5O01do7Y8BT SjFSMeUDA7uKQ9qX6soYnd gfxvI9PsqMOpIdE4EWN3yK NhdL6qrIco dhrxtI6nKnj+L92XVU6VCJ PMNL6ESnc7R2OkWoeofLQ+ VV89YBHgIW01mIJvvOAyx8 karCj3GaOu IOGeCWT6qNqbALsda2QfZU EpT19roKRbs6D0GXBnnIcc cHUcZoCwrUO9hM5dJDaxah vrf4dnfcrz Bqfgh6cbbl08lH87T27mMK icTXYiASK6ORLdSZEadMhp bn0htC3lQo1+PJpgf1ztf7 mwqMh6FxAg NRGxhnDjyJcgQNB1p6XeNz 44P7XikSuvo1BfSca5oi88 bNGpw5N1jTY0MQaoRYRflB 4yNEhpLnN6 MVOfPvNrcO21dQBbGAzdRa 1ymFmkkYazJN3lROByrsam IHSmeH4yLSMaxFHdgTkkZG 4wNTBpbjtm k369YjGzXXA5YAFtiTTbB5 WxfY0zKmRcXMNzEHWpW9Al tNKsLMnzB187PFqjOlR5UQ ImkiYdF6Ku VORktDegSwG9u3F5Pl1Ck2 KfxmkhQSM5BAbeFRB3ZtI7 KdLqKlG9W4PgRwd1MOQhiH hjOV1aG5Mh PHQziotacmktkUN6RCPtHE DxlV32jBZnHYoeTp1xm2G2 i226DZKzVXYwhK10Gw2tpS ogMTBwdCBU kW0ygvwpf4ibhtptFqOaIB UpSZh2MLo8YNNegAwqMiIt EWU9NrX0LPE5zIBobF6ycI xuoxefdK4j Oyc+U67ruB4cXIZ0BLX2no xaJCLgxcEcLQ09HP49J9Tl PjwvdGFibGU+PGRpdiBzdH shCD1rEdEk f8tud9WiGTnrJ3QaMUMdFV zyCko5KLZjQSC2vFW0gN4c BDHwEWzir5T5xCB6A7Opgb Kpff2rm2sg KRIqJJftQ79neGAxa1D4EC VkfEW1OHQteBudWgEcvH64 Oyc+JUXfgVxhb0WxIyzxj5 huy0uvmDk9 MaBxVJMiirCwoZnuYHC8w2 YkBj85X42tPHphZKVtUFOj TSDgLPZccEnojd5iuL8fQx 8+PGNvbCB3 iFF4bJ5kHTLiJwI3HJseZ4 41EeYexOZuMguwh4oys0el tAj3OxGqZHUbsiBkpLhbRF B5m0TaOc71 V95hZKdcJEWcHEWdKQXfFO IdpSjfwg8mhA7zWt2+PC9j q6jdza26rW02uUP+PHRkIH G3nOycSWcp CRJwiW4xMOruCiS6QESjTm PjkY65yMTxDKwxAz8afBvy oQrbSH4aPQArnerbn956Ow Vfm7liEMMp oWXmONdrXJV3H36nf1L5EH XpJOGkSTD9cIT5aH8wiIzi bjogbGVmdDsgdmVydGljYW pwBBsdC158 IHRvcDsnPlBhdGllbnQgTm RdBWc6K5FoXzq6NMTsxOkv RI6vuBRgPXfeRb1kzNyedB zwDD7fLAUs lulqb190IvUmi0vrZEPvgF IvDZuuKXN4H81ts0G1KALw LGRsZDR9wTH7dG2lbCdltq ogbGVmdDsg wgHmaVkwUUbvTYxgE642XM RvcDsnPkJpcnRoIERhdGU6 ON51FK32hPLuh2J0eBJ9B0 BhZGRpbmct wdhifHD9TAFhRCKotX15De 2yuSlcMs6hOTLqDLR0RREj hHNxZ1UlqH2kLiKuRCRyLG TyZ7NqaIOk YObtL694VKtsJsX9BEKftl GnU9KjFXPlrRnqPsX7m4O1 Ne1GF5S4XE98YM10mBExg5 A7kMG2O2Br SZJndrjktrsvlVE8WVMwQS EufP46Rs4riFxyTo6qJIBb ANR3FGRplGScB3GooI9fUh AjMDAwMDAw K2VruGZfJHyyF627XTnqUl T1LIVjvrErX6ZoSSFkzStq XyY9f7D4Ve3AHNk9GQ35KI 55fGMvu9K1 nZY4V8OhNIUwrruerdrhoL X3GHLhHNHimC77Lz2pvSwk Hi3jAZFcTMD2UHOgzKCzL4 KiqI6zMcPh UQRzSJYgL4BzuFXzWThgH8 86EPfsXbD5HNYcjvGvH9Fe MNNbjSvdJpY8j6Q3Uk3MYB VjED88YZX4 kBN4CG33YI51C4UhUoivbH FibGU+PHRhYmxlIHdpZHRo CKlhGVKnFyPbyAkgDZ7jMd 9yZGVyLWNv dSqisGCnJyKwg1zoKALkMX mrNX8oeCtuZ0QyaLJ6OBAy m8b6Jo24N40kW9RckUH+PG BptIY5sIG5 uD4cKuNeAaR2HYkfV287Az KvyVLkMmdww0qim6ykfJm3 EdS9STUkggRkrCwhSEY4x3 VpYg53F06o IHdpZHRoPSIxNSUiIHZhbG togf5rsI0eWv5+PGNvbCB3 bKI9eL9aTjHqOtY6CCzkK3 49InRvcCIv Mshyi0uak1dmxTt6SuTfAX QbvzSmxDdoHSW5d4VxQp51 S4FelThck9WaGgm0yk46lT Dqi7F9xJF1 Z1ZtGCZtksyguGKlcDzlAQ 9pDVCecrzeWMGayS1uQFMm B5q0DvBxFdU4UHapF3Uzdy K0JIWymKQe VHxjUKM3C37co3D9XOAwZF EvJCY8zKZ5oV8xzLxdufmh bGVmdDsgdmVydGljYWwtYW jvM801BLHa nGniUEArjQ6aNSWsmDGryI ulZU6dPFElxlilBwUXGJNH SBXwAPYGVPVJDMsEBl39G6 XqDuc8BGIs iRdnDH2hgFZqDMzrVb2ckI macHifJE5rARIhyhrrTZJp qP4jXMEzxLQjxJudHX9gVK Tztylcx345 CyJyNJY7MBEaiLSnR1PloA 6rNvSoUKSqWDLvT2VkoDUm QZkdD551NQamYmE1BDKgbf WeU1TzMJUl eJhxEkJ7y0O2Ij5oEy7cBr 3mRKx1JC49BI23bUOth3Y5 pJA0E0PsHJJzlsawulrlkH M0ZTKnHOPh qO45aGYbAKpgMe3jh4Q5d5 71SGTeXPQvsY08Hz0vtGkh GCLruSKKnP7batgpq9yeyt ogIzAwMDAw EEx8VOr3JNPaqMmiAvGqCE L1BzS4ATI3iEOakF0skBdw rpcypY3aWfg+MjYgWWVhcn D8A8YcEsu4 YNMtlMqkAZ4idGMqGNjpNy 0qxSjbeLycKM5kZZGniyau QNEepR7pKPDjfYHgyPtzMK 4wNTBpbjtm p403EiZqFXW7WVEfiCDwA8 RlzL9xDpWsSVRiQKQjO9Dh kFKoWNvuI171VEbdKdU5FA JguvReN6Wk AAKgbVmlZzU1o8W3Da4KHI 7kkJV6F1GaZnd0VYZtwQos PP4kiIWfYBqmHw1fhBzuhS ucCE0kBVKh fhjvPHIvtA6sYSPwdXDvvT dsJN6hUAIwpatgw882DxPu VSA0HXCsfECmO1EuhM3rHf AjMDAwMDAw L8IdkQNmCPxuG952KUumQp R6AQQnxnFxB8SkHWBdbYkv YxN8r5D4Ec7VZFTcNCOtqP YvOaD5X8Mg PjwvdHI+XX10GOLkLR34mE EfgGCnn6njwOd1LbQgBUUy KLA0bXfrVIdbq8ApZICwW0 1wtZKhk7V6 TTFjqEansPHzKvUbaEP8yZ 8bGAaaqvhkw4rprjmhVefm p8cepm46lZ30K86tHTmdVZ RoPSIzMCUi NIKebKbmte7ioS1mWl0+PG MyiWZ3bFM4uS3bWhQfMsT1 JRyvS800FvJdsEFhIhuit0 wed1uzbIx4 KoWoXPChylEczUqoEZK8i3 NcFn73G84tGWcgBEFeGQEl DBQoRTXvtVmqqr6eaT9qCw 8+LG8sv9ek nm06bF68dRL+XDOzJWA8vX wpASbdOUNtfN4zDPubCxG5 ODLjSrWmzA93qGBwBZueOq 1yaWdodDog AL1eCPAtlvgcy352HhYsl0 pmAJNhpLGmTLpfJUI2N54h j2F5PPJwRHZvRJT4hQQ1pF 1hbGlnbjog bGVmdDsgdmVydGljYWwtYW evV159YDGtqFcpNaRylTTt S9qmgcJNAX0nCvvkhPL+PH OeHEV9yNsv QWxoRYUlgF3nFNHeB6v6Su CdCtZ1UZlfS1XdzoM1FGUc cOFfOZIznNMYcQ4gmsvlj2 xvcjogIzAw MEUxZKh1HAm2UQAncJbxVr XdJIH0MkM7NRZ5uBImmJ1m aUuokkiynF1cHfx+RklOOj wvdGQ+PHRk MTU5tYsmQAczYRYfhR5wFW SaP8w0WgCpDfQ8OJqvX3Ok esH5YCQaoVYhNAFjjVHTlI 3ijhqrt0nm bnayYxAfJFPiVJa3ZNe9IC NkrOvvKkBwPOO0FnO4LTA1 uBSdjY6jaZzluoowmM9kKm c+TVJOOjwv dGQ+KLPuCNC9mUakNXjyJE JajF4dYBNbA6z1FyRvJwM6 YEvaW4BcqvR5OJVemRTjLH TxtZZSiU2m zeeew5jkokhtEiRaOWEeXF w9NFp9AWTziRbpRyVqXOB3 XnZ5VIL8vHIenQ0ieJpedn cjnS3tDah+ CMI6EWP8WR67WF50A7DgAi wvdGFibGU+PHRhYmxlIHdp ZHRoPScxMDAlJyBzdHlsZT 1zKw7xFVIa LWNv (more content not included)... [facility] COVID-19 ([facility])on 11-05-2020 SARS-CoV-2 (COVID-19) RNA REEMA+probe Ql (Unsp spec) Not detected Normal Not Detected [facility] Comment on above: Result Comment: This test result should be correlated with clinical presentations and medical history by a healthcare provider to determine its clinical significance. This assay was performed by a reverse transcriptase real-time polymerase chain reaction (rt PCR) method on the [employer] system. This test has been authorized only [...] or revoked sooner. Performed By: #### 2 [id number] #### [facility] [address] [place] [id number] SARS-CoV-2 (COVID-19) RNA REEMA+probe Ql (Unsp spec) Pass Normal [facility] Comment on above: Performed By: #### 2 [id number] #### [facility] [address] [place] [address] Specimen source Nom (Unsp spec) Nasal [facility] Comment on above: Performed By: #### 2 [id number] #### [facility] [address] [place] [address] Consent for Treatmenton 09-0 Consent for Treatment [id number]#[id number] 0CD:127 [facility] COVID-19 ([facility])on 11-02-2020 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 NO [facility] Comment on above: Performed By: #### 2 [id number] #### [facility] [address] [place] [address] ICU NO [facility] Comment on above: Performed By: #### 2 [id number] #### [facility] [address] [place] [address] ? Unknown Normal [facility] Comment on above: Performed By: #### 2 [id number] #### [facility] [address] [place] [address] Resides in a Congregate Care Setting Unknown Normal [facility] Comment on above: Performed By: #### 2 [id number] #### [facility] [address] [place] [address] Symptomatic as defined by CDC YES Normal [facility] Comment on above: Performed By: #### 2 [id number] #### [facility] [address] [place] [address] Physician Orderon 08-27-2020 Physician Order [id number]#1.0 0CD:127 [facility] URon 03-22-2020 , QUAL Negative Normal NEGATIVE [facility] Comment on above: Performed By: #### P REGU #### [facility] [address] [address] Juany Mccarthy Covid-19 PCR ([facility])on 02-02 Covid-19 PCR DETECTED Abnormal NOT DETECTED [facility] Comment on above: Result Comment: This test is not yet approved or cleared by the [place] FDA. When there are no FDA-approved or cleared tests available, and other criteria are met, FDA can make tests available under an emergency access mechanism called an Emergency Use Authorization (EUA). The EUA for this test is supported by the [place] of Health and Human Service's (HHS's) declaration [...] used). Performed By: #### C VDTB #### [facility] [address] [address] Juany Mccarthy EUA Statement SEE BELOW Normal [facility] Comment on above: Result Comment: This test is not yet approved or cleared by the [place] FDA. When there are no FDA-approved or cleared tests available, and other criteria are met, FDA can make tests available under an emergency access mechanism called an Emergency Use Authorization (EUA). The EUA for this test is supported by the [place] of Health and Human Service?s (HHS?s) declaration [...] consistent with SARS-CoV-2. Performed By: #### C [facility] #### [facility] [address], [place] [address] Juany Mccarthy Encounters Encounter Date Encounter Type Care Provider Facility Start: 03-19-2023 End: 03-19-2023 ambulatory MARZENA JARRELL Not Available Start: 02-22-2023 End: 02-22-2023 ambulatory CAROLYNE Kobi EDMONDS Not Available Start: 03-22-2020 End: 03-22-2020 Patient encounter procedure JOE CUEVAS Facility:[facility] Start: 03-03-2020 Encounter for prepro cedural laboratory examination JOE CUEVAS [facility] Start: 02-25-2020 Encounter for other preprocedural examination JOE CUEVAS [facility] Start: 02-23-2020 End: 02-23-2020 Patient encounter procedure JOE CUEVAS Facility:[facility] Start: 02-20-2020 End: 02-20-2020 Patient encounter procedure JOE CUEVAS Facility:[facility] Start: 02-16-2020 End: 02-17-2020 Patient encounter procedure JOE CUEVAS Facility:[facility] Encounter for other preprocedural examination JOE CUEVAS [facility] Encounter for prepro cedural laboratory examination JOE CUEVAS [facility] Payers Date Payer Category Payer Unknown [id number] 2.16.84 [id number] 1995 Unknown [id number] 2.16.84 [id number] 1994 Unknown [id number] 2.16.84 [id number] 1994 Unknown [id number] 2.16.84 [id number] 1994 Unknown [id number] 2.16.84 [id number] 1994 Unknown [id number] 1959 Unknown [id number] 1959 Unknown [id number] 1960 Unknown [id number] Progress note 01-21-2021 Note Date & Type Note Facility 01-21-2021 Note HNO ID: [id number] Author: Dax Robert MD Service: ? Author [...] which included preparing to see the patient, [id number] patient care, completing clinical documentation, counseling and educating the patient/family/caregiver and ordering medications, tests, or procedures. Dax Robert M.D. [facility] Procedure note 01-20-2021 Note Date & Type Note Facility 01-20-2021 Note HNO ID: [id number] Author: Renetta Beltran MD Service: Reproductive Endocrinology [...] Renetta Beltran M.D. Reproductive Endocrinology and Infertility [facility] Progress note 01-20-2021 Note Date & Type Note Facility 01-20-2021 Note HNO ID: [id number] Author: RT Juan(R) Service: Radiology Author Type: [...] Davison RT(R) January 20, 2021 12:29 PM [facility] Progress note 01-06-2021 Note Date & Type Note Facility 01-06-2021 Note HNO ID: [id number] Author: Dax Robert MD Service: ? Author [...] images. PLAN - HSG Dax Robert MD [facility] Progress note 04-21-2020 Note Date & Type Note Facility 04-21-2020 Note HNO ID: [id number] Author: Alesia Bermudez Service: ? Author Type: Nurse Practitioner Type: Progress Notes Filed: 04/21/2020 5:19 PM Note Text: unable to reach, left message to return my call Alesia Bermudez, [employer] April 21, 2020 1:04 PM [facility] Progress note 04-02-2020 Note Date & Type Note Facility 04-02-2020 Note HNO ID: [id number] Author: Dax Robert Service: ? Author Type: Physician Type: Progress Notes Filed: 04/02/2020 11:43 AM Note Text: Consultation requested by Dr. Cuevas in [place] for an opinion regarding IVF. My final [...] which included preparing to see the patient, [id number] patient care, completing clinical documentation, obtaining and/or reviewing separately obtained history and ordering medications, tests, or procedures. Dax Robert MD letter to: Joe Cuevas MD [address], [place] [id number] [place] [address] Summary Purpose Family History No Family History Records FoundNo Family History Records FoundNo Family History Records FoundNo Family History Records FoundNo Family History Records Found Advance Directives No Advanced Directives Records FoundNo Advanced Directives Records FoundNo Advanced Directives Records FoundNo Advanced Directives Records FoundNo Advanced Directives Records Found Additional Source Comments INFORMATION SOURCE (unrecogn ized section and content) DATE CREATED AUTHOR 04/15/2020 [facility] DATE CREATED AUTHOR AUTHOR'S ORGANIZ ATION 01/22/2021 [facility] DATE CREATED AUTHOR AUTHOR'S ORGANIZ ATION 01/22/2021 [facility] DATE CREATED AUTHOR AUTHOR'S ORGANIZ ATION 03/31/2021 [facility] DATE CREATED AUTHOR AUTHOR'S ORGANIZ ATION 03/20/[address] [facility] FOR RECORDS PERTAINING TO PATIENTS WHO ARE [...] BE BASED ON THE PRIMARY CLINICAL RECORDS. [employer] provides no warranty or guarantee of the accuracy or completeness of information in this document.
[2023-05-18 04:07] LABS: Progesterone 0.3 ng/mL (.)
== END 2023-05-16 16:10 | disposition home or self-care (01) ==
LOC: LAB 16:10
PROVIDERS: PCP Family Medicine; Visit Provider Obstetrics & Gynecology
DX: N80.209 Endometriosis of unspecified fallopian tube, unspecified depth (principal); N83.9 Noninflammatory disorder of ovary, fallopian tube and broad ligament, unspecified
CPT/HCPCS: 36415; 84144

== ENCOUNTER 2023-05-23 13:55 | Outpatient (OUT) | payer BC, SELFPAY ==
--- NOTE | 2023-05-23 13:58 | US_ITS ---
The [address] [address] Patient Name: INDU ST MRN: [id number] date: 1995 Sex: F Assigned Patient Location: US Current Patient Location: US Accession/Order Number: [id number] Exam Date: 05/23/2023 14:30 Report Date: 05/23/2023 15:37 At the request of: MARZENA JARRELL Procedure: US pelvis w/ transvaginal EXAMINATION: US pelvis w/ transvaginal HISTORY: Amenorrhea N91.2 COMPARISON: 09/25/2022 FINDINGS: Transabdominal and transvaginal images The uterus is normal in size, contour and myometrial echotexture measuring 8.3 x 3.9 x 4.9 cm. Anteverted. The endometrium measures 7 mm, normal. The right ovary measures 1.5 x 2.8 x 1.8 cm. Normal color and Doppler flow. The left ovary measures 3.2 x 4.1 x 2.9 cm. Normal color and Doppler flow. 2.5 x 2.3 x 1.9 cm area of heterogeneous echotexture with peripheral vascularity. Small amount of free pelvic fluid likely physiologic US/US pelvis w/ transvaginal IMPRESSION: 2.5 cm cystic lesion of the left ovary, consider collapsing functional cyst Electronically authenticated by: ROMY VIRGEN Date: 05/23/2023 15:37
[2023-05-23 16:17] LABS: Basophils Percent Auto 0.4 % (0.2-2.0); Eosinophils Percent Auto 0.1 % (0.9-7.0); Hematocrit 37.2 % (36.0-48.0); Immature Granulocytes Abs Auto 0.01 10^3/uL (0.00-0.03); Immature Granulocytes Pct Auto 0.1 % (0.0-0.5); Lymphocytes Absolute Auto 2.3 10^3/uL (1.2-3.8); Lymphocytes Percent Auto 33.3 % (20.5-60.0); Mean Corpuscular HGB Conc 32.3 g/dL (29.9-35.2); Mean Corpuscular Volume 86.7 fL (81.0-99.0); Mean Platelet Volume 9.9 fL (9.5-13.5); Monocytes Absolute Auto 0.4 10^3/uL (0.3-0.8); Monocytes Percent Auto 5.1 % (1.7-12.0); Neutrophils Absolute Auto 4.2 10^3/uL (1.4-6.5); Platelet Count 296 10^3/uL (150-450); Red Blood Count 4.29 10^6/uL (4.20-5.40); Red Cell Distribution Width 13.5 % (11.0-15.0); White Blood Count 6.9 10^3/uL (4.0-11.0)
[2023-05-23 16:59] LABS: HCG Quantitative <1 mIU/mL; Thyroid Stimulating Hormone 2.036 uIU/mL (0.358-3.740)
== END 2023-05-23 13:56 | disposition home or self-care (01) ==
LOC: US 13:56
PROVIDERS: PCP Family Medicine; Visit Provider Obstetrics & Gynecology
DX: N91.2 Amenorrhea, unspecified (principal); N83.292 Other ovarian cyst, left side
CPT/HCPCS: 36415; 76830; 76856; 84146; 84443; 84702; 85025

== ENCOUNTER 2023-05-28 12:26 | Outpatient (OUT) | payer BC, SELFPAY ==
--- OUTSIDE RECORDS SUMMARY | 2023-05-28 12:30 | XMS_ITS | CCD ---
Author Organization [facility] Care Team Providers Care Tank Washer Name Role Phone JOE CUEVAS Consulting Unavailable CAROLYNE EDMONDS Primary Care Unavailable MICHELLE, JOE Admitting Unavailable KARILDEFONSOK, JOE Attending Unavailable GIGI COBB Consulting Unavailable KARASIK, JOE Admitting Unavailable KARASIK, JOE Attending Unavailable KARASIK, JOE Consulting Unavailable KARASIK, JOE Consulting Unavailable KARASIK, JOE Admitting Unavailable KARASIK, JOE Attending Unavailable KARASIK, JOE Primary Care Unavailable KARASIK, JOE Admitting Unavailable KARASIK, JOE Attending Unavailable MARZENA JARRELL Attending Unavailable CAROLYNE EDMONDS Attending Unavailable CAROLYNE EDMONDS Attending Unavailable Problems [...] 03-24-2020 Chronic Other aftercare (1 source) 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 CD:753487DN:[id number] Gh 0bWw+PGhlYWQ+IN5XAJViU 80xlHObsW1CL8hIHO5EHDR QZVPPHI5OJV9olKY2VRnsP 2VybiAv MybozFQgKY87ZAq6AKK4fM bwOLnkuW3kxPLuE7e7NjKj VG75fX61BRljRELxDbX6Yk ZpbjsgbWFy Z4kjTyOxhNLyGis+PHRhYm xlIHdpZHRoPScxMDAlJyBz cPbaBL0eQo4sFMUeGLUieT xhcHNlOiBj q9npAOAtNYhrNW6atSodH8 MdeDE8ADTik3c3Ib94vYN+ WBSkCVH8hYixLGpia981Jz Epx9zaNUK2 iWMlJMhrXKJ2L18hn9B9AF IoCLKuSDC7iSQ5aU0cgCce wnkxQ3AzhIOkEeU0MMP3eE KpdG4lvMai iponnY5sIbs+T44TOT2YBG FHWC2SXnh6N6IkIuwbdOY+ SQ17RDBoWW00oQJgyWSpz9 ngiBn5BiSv QWCfAOA9kKqbDPpns2OhCW UzV43jcWLtx0R6SXQhiWmb qYPoEhTrpMW7gR1vLLbwwc czs7quibvc Ktids8hykq74rZ76Z76hSE mmVYSwHXL9PODhQCEezNni kv2tgR2aQp4+ZHuio7egx7 cdaPb3BgOf LCSehnKtkQeuBCV1n8JdTh 33L6QlhMxvi2GfBqc0ws82 kNXdz0Y0qCG3QBlqJVVfbN 7zWQsgAvE7 EZXvLrNfcU80mRCbGIsnJg 2avZarrHouVO6tZVZvfgvl AKYhfG8lCMQgoOCmiRtdCE 4wNTBpbjtm r600HrVyFXW4DLXzcRTmY5 MdxJ0xFpRwPHImTWSyK6Bt uNRnGAknZ261GUmqYfF9AO DkpcWjV7Tn EKRsxKksFeF2z5L4Uk1Pb5 MbhokvGWY7UObhIGTgDoR4 RxGeEbK9L9LqKhc7RYJndQ vgJY3fS3Qf ICJkvimowrzljZW3SATfKY SbbN83gRDhHOtfRb5il9F3 j256XTZrHKZojM38Rn8wvO ogMTBwdCBU pF3knxmge3pagkwmSaMiCL HtVCa3TZo7FCLmdVreTgWg KGB6RoY6QQK1tWXndS6exT yzbofjsX9c Oyc+V74muD0xBJZ3DXF2ze mkRLNqkjBdYK46YR17F4Db PjwvdGFibGU+PGRpdiBzdH stXP4rQcSz q3afg4EeIHdjK0GrAXCeVH fpXmw7WPErCKF1tKI4fE0x WAWfQHjyu1Y6lBK2T9Bqrq Oora2um1hb DNMbSNnuB04nhWRin7M2JF XxgPY7ZSUlvDzvKoHehG38 Oyc+LRJreTsgm2KaBnhsv1 vnh2qwzVh3 KmChPOHxfdXruIoyTWN2t1 OfDn71W43fBRzlYQNzOSEs OQMpDKYqbQiuew7vmO6vLn 8+PGNvbCB3 xGL0gY8jEKMaBhZ7IGrxI6 59NqSsnAQnMdabi5awu2zd kIr9FnPeSCHohhFvsGjrUB V0v5LgXh01 K59dWMakJUWyLNZwUIBpCX MwlUejzc0ulS5rIn1+PC9j o1xakd19lC59nPB+PHRkIH I3mEchLHkg MAGkkB3kNSvlJoC0KOQaMt AzoD16zZFbQObaWq5clTsy kPslHA5cGDHbacngt944Ry Diu8irZACq gJYeCZqyWMO0H10wp2U0QR HzULMwGYC4wFW4uK7pjQyn bjogbGVmdDsgdmVydGljYW bsIPbpH200 IHRvcDsnPlBhdGllbnQgTm FeOBc8G7PfGcm0BYIsiImc ZB9mfJCgPAxeZa6eyByaxR lpFE3zJEYt giukh514XiJau3arDKClzE IuEQxcRQE1C09li3F4YGTq AGLaCLH0gAW2tG4ivPzhhb ogbGVmdDsg hgMfzBjiWSztJCfmS707XY RvcDsnPkJpcnRoIERhdGU6 DY02ZM54tQHsk8N7bIO9C7 BhZGRpbmct iefwxHY4RDXdYNOkaX06Dg 3saRnkPu6lSWPlTMY1LQWe lYYeO6JwsU8uCfKeBVFsCK XhY1SzpKVh LUbfJ137BDgaLqH0PTRydk AhQ0PfVPUhcSxzFqQ7s4Q9 Hh7QX0A2XO79KK93wHWln2 H6uRA6H4Ny TBNudvryucrsrTT0WPCtEW AuyK15Le3faNtvXm8tJNCi WMY8RFUljUIuG7HcaD5nDc AjMDAwMDAw Z3KxtHOzSNgiW308BDznBe V7YHStmiYmG0TaLUNymGmr CrB3h5Z6Xq1KAHw2VG74RK 91xLPvo4C5 jMM1Q0CmPMNouqsecjxgwM G4KHGuPVNpjT61Tg1zkZco Gq2kUJNlTUF3RFQfmGSfP3 QrnK0yBeTq CLPbJYZuX4BciVBeZKjhW1 08EUuqIeZ1LCHlfiYlY9Ou OYGukNxtYpY7b7H8Gl5IDT YqNL88RML8 xHX5ZO05VX01X8WwQowerY FibGU+PHRhYmxlIHdpZHRo SHyrNVTaSvJrrMjwRV5yEk 9yZGVyLWNv jJpooXOnHjWvy6ydFHAiYK qiIQ0emRghG6DbfAW8MZNa q7m4Wm69N04xO5RjjRC+PG OuyWS1yQS0 kG2aMiItIbT8AQjwV883Wz JmnAVsBjgzl8mez0evfDi4 FbG7XVSazmGdiIhwGHJ5h4 YvRi12T34j IHdpZHRoPSIxNSUiIHZhbG vcjo4boJ9eEc4+PGNvbCB3 uLQ6iI7kLeXoRjT7HXahE7 49InRvcCIv Befyp4ulg2bhzBv1MlAuDF WpzlStwXimIFE9z7OwQg92 O4DedSjue3JfAqq0rf43vD Emr4U2jBA7 M6KhDLYrusinuBAnuMwfMG 8dLAGngeakUVMchN8lAUMc J5r8MlStUrI9QVtjG9Rnop C2TOHzoJDk IOeqTQJ7Y00gm0O0FTJdON PyMQF1tOV6fP5ckUcyvibc bGVmdDsgdmVydGljYWwtYW bvS434AZFf zOeqNXCyhK5jODGpwOHquK ddUX0jTDJlbjrnWvMFFEJC HRVzWIMOJMESHToFJv57F0 MeMqp0AFFk fDdaXP8vfKTnUMieMm9moR yxwUawQC3eXEOvjdudMISy bZ9yDRSbaZGofArmDL3jTB Pyjrpgs343 EsRvIFT5MZMyhBWmC9PovW 1jNeJvLRIaNMLgS5UgvVFp AYeyW254EMiqKqQ0XYUgxu GmG7CuMHLe zEkcCtQ6i2X1Xz2wMo4pZy 2tXQj8TH09MN66cGXbd0L6 eNJ3N6RtYRCcakywqutrkC U7DMZbPUGw nC44sZKfSHopVg0gp2K6s6 05AUWxYUOgiU03Ny8myBxs PNWtyIYCoA3xtdffm5hcnl ogIzAwMDAw AZt6KLc5ZSRmcMqjRvOwZS V9JkT0MJP1vBHezL1beLhk gnufpD7mOwl+MjYgWWVhcn F5Q9GmRdp4 GHFytYqfPR5dcOOdCOnuJm 0tpEagzTwnDU7aXRUgddrn PUFfuO5zYHBboNVisNmbXP 4wNTBpbjtm i861McHlMZU1QNBofZUnP1 WkoV5xVvCiRJZjJXTiQ7Eu cVGnMLkyR917GQfcRkB6XE NblhXhR3Or WKPfmMfvBgG0a8C7It2JER 1wdDZ7G7YbWat3LVCmiMrx EF2yfHJtJEbbIh3dpRmcjJ xvJA3iQTTv rmclIPXblX7uMROwgADwuS jkRZ9pPSOjuphmb758HyGq KVC3SHZzuXGuG0BwzK9mZo AjMDAwMDAw Y0UzeTMaFKkcN168IQnvEm C2PKKsrlRwC2NvDSRttDdc YgS0t0P9Cf4NiWKyABLuOB 42YA09GD92 F6EsCdzapPQajGO+PHRhYm xlIHdpZHRoPScxMDAlJyBz nFryPI2vDd2kHHJaWTVykY xhcHNlOiBj t7jrJRDcCPjdTU7zwThpM3 EmzOB7QEHjo7k0Ti88N98r R5ZuoOQ+NYBizOR6rBW3yX 2gSsVaMqR1 XAysG379RnYdrJRzMieog5 fai5pnhPi2BjSzEQKkpvRo vHjqOUM0k8IgDb31D48lKB dpZHRoPSIy TKUjMCBsaSpbtr9dtD3tHt 8+YJPldBJ2zEQ2mL4zAtMy MpI5IOdlX512TeFibDHwLn kiB18lS9Ce dXA+NHVcGzb4BKQaeYmiBB 6vwZPhGLowWd6cCJL2PaUq NiYdHVamR9ScSVWausvrqb nblNP2HOJj QOWpeD67Ol8leUlsSr1lBF XcOVS3NHKpfEZwE7UzdY4w LdKyNLRqQZPjB0AfzPOcOZ imA392PGof TxK4NIWvzuZdV2UqWWRkmA nlDmH2y9H0Cs8UiVgztAAy ES1rCrYeDUn9J5YzCuu1DO TkfXmrBM8a jSXyWCqoDo2uzZdxlEbwEQ 6oQVPzzrhgc755QxGws4yz DNVpuVPrNBdmLJC9O91ss5 X6JDLvYEFl BLZ9jWS0yX5lhXkrlepaeQ VmdDsgdmVydGljYWwtYWxp B313NUIpxJyySvKKDfk1R1 ItJwy7AIXu zHozKT6bnHYnERigYo7tvX hxmDylTI9eUEFenyymb002 BsBtg4poUJLncOVeFKhpZQ W0I02ty9L9 TKVpZFDdDQZ8iVX0wE5jmO lnbjogbGVmdDsgdmVydGlj ITffSFtfX769MNYamXegTy 4PCwr2E4Es Sib9WDOlvNbhKX0ucIDaFS pwBi9zdOyhwLenNN0yMFWy nbcgl531EaJoq5dcLSPcdA QgVGltZXM7 T45km4P2BHQjUPIrUSO2gC L7nI6ceAtbggmuuCBynAhd yvAreGnxFEvnGBjcK698MI RvcDsnPlBh eWVyOjwvdGQ+EM12va71Z6 VnPsniIzo2TBGrTVE3gBA8 lC6hTVAfEKtie0M7bNJ8G2 VlovEkrj3g b2xs (more content not included)... Normal [facility] Coding Summary. CD:103972NM:2134643S Gh 0bWw+PGhlYWQ+DG3UHDEgD 74hyPPbjA0BZ1mUOU2URFF JZVNZNU2PRB0uiTV8INxqZ 2VybiAv AahreHSvOE87PQp9PEY4zA qdECerpU1czRGxV3g9FrTa DT28eB85CGxaFZNoMvC4Pm ZpbjsgbWFy T7zcWkSbqCAqToq+PHRhYm xlIHdpZHRoPScxMDAlJyBz eFgsVQ1tGg8aNZOsEBBitV xhcHNlOiBj n3fgEBUcUZcpCM6nfOqyE8 EboNO3KRAls2h6Ba74zIU+ BHEgAOK8pIblFXlwy225Hx Cqo0rfVJS2 vAGxNVasTGA9X53aa2S4RE IzMTQjOFY6tXK4sR2awFmx btygW4LlmRSiCeG8SKZ5pT BufI1fiTtx ddsxnS2nEko+B17DNB2OGB GZFG5GTkc2P1XoZqmxzML+ TX21BCYqYQ75gUDhvWUuk2 zqyEa7AwAs HOQkBEC4gZcuCAnwy1VeON RcP50quQHku9R1SIDheNby fWPeJcSngVM9zF8gJXjxxq luj8llyijj Jnotk2kdot06cS61L13uVI vlYLAvHEO8VAIeDZPnjLjx fm5mrW0nPb3+DXboz7rtj1 pocUs4ZtDr KTJoxlPssPnqUTG7s8McSx 66E7IdaSgjj2QvCop6iv76 hXZcy1D3aFI3PNoyIZEamJ 0oHHpmVaC4 RWSyLeXcwS57pQVqIJpzKt 7oeWbqqLhtZI0gTZFawlfp QBYtqU4bBVJteIPizNusPV 4wNTBpbjtm j652WhAxHUR2WZMooNUyP6 DplW9nIrAdWJQrPYZpH3Rv wQJxWJcqG963OQupRmD5SP JkkiPgA6Yd NKGclOtoZtT6c1Y3As6Gm8 TtagzxPFQ7PLztYSEvNlN0 PuFnGnI9A4ZdHuq3PUOesM jaPA5lW9Hf SYGhgcphwqxhcDM8TMWmNQ BfhR96mLHtXKsmNn7pi8I1 s595WCKxZERehB66Od6biI ogMTBwdCBU tK6qfryvh4bcyfblPaRcMN HnIEi9UPx3XHNxtFecZcLm JPW4UuP7MVY2eAYuzT5reW kxseyqqB9d Oyc+Z21duM3tURC2UOM4wt lvUEIngvAiSV27MI47J6Pp PjwvdGFibGU+PGRpdiBzdH mqAR5gYoAu m2qxo8LnZLauC9SmRSXhSD qmVyv1XGAdTOX0pIQ5gF9x JDQvYCzgo2N2rER4W9Uwza Awni1ia4vk TBSuOApdQ20boGYlu1E3MT GxxEP4WVNcyAnzVwKdqL70 Oyc+QEUiiAqee0FvOuhzh9 anf4gvaPg5 GbMnAKPgmiPaxMbeNMY0t9 CaMx58Z99mNOtdHTReMADv HNFrWYXxnDktuk4vsC3qUq 8+PGNvbCB3 wOT5lJ8uHPCeWaR8EDyoM9 34XwMtcNUtSyrsc3odz4qa aYb4QlFyQVWpgmEncDsfRA Q3b2FkNz29 G27vUVhbKDNwWUUfEEUjGB UikOpxhk3ruS3sOq5+PC9j h4hlei95gI44oIR+PHRkIH H3dJrxCEce VBQloZ9zWZnzJaC6LSCpEj UwbB19tSXeZBpnVj6ydKew dCjjTW0oNTBwhdwnx113Yl Aui2bwVOTb uGLsKHofOJU9Z29da6L9UV XdLAZkWFP6kEY9fH4awZsf bjogbGVmdDsgdmVydGljYW viMLrmQ828 IHRvcDsnPlBhdGllbnQgTm NsOCw9O3MhWek6FAZkuQuo XI5fwUGrFQauHi8bqMcrtF yeSU8nDPSr dgfwe544HyRki9ovHQOokO VeNXanUYJ2L78so7Z2ITLs WGMyKFI0fQF6sM1jnZixtd ogbGVmdDsg zoRljUmjXCmlZGqlV326ZR RvcDsnPkJpcnRoIERhdGU6 YD71JH11fPBfy0O0yMK9G5 BhZGRpbmct pflokYS6GOPgUZCqdE78Nq 2vgOsiFz1oIJBsTKE8PYBz zOPkW5MmkP0zXnErZGOpSU LmA9ZlnLYg XDihN008CNcvIpN0DBEmup UrF4OgDBKusNcrFtW9y1G1 Sc8SS1J8KV81GG33wCFbe2 H4sDN4W0Ok RSHwczcymbrbaYX1UDUyBO WfzS73My8liInuWm6fIFSv DIC2RZJtxCOoE7AaoG8eXq AjMDAwMDAw G4OgpPWbCMsmW548SElvOd Q0QKDnckLaQ8XqMJNwdZst JvF9v1B5Cp0TDDw1VM80WR 68lURql2T7 hZR5H5ZyZSVajkljuamgiS E7LOYxEPJnrF76De9kxOuf Pn5kUQOqHFM8ZADilIRoC0 SabL0rXpYw GEFwREXuI2NneRBhCVvtA8 66XFgcVrQ8HPYkisIpH4Wg ZUGmiQvnTiX7z5E7Kf5TAP UlES00IEE7 nQT5TJ03PX22S0NvLctngJ FibGU+PHRhYmxlIHdpZHRo THnmWPWoTjSwzBifLO5vQa 9yZGVyLWNv rZzwzCZaEvHbx6syHABuCF hsIZ4qiOulG1QqtFV4JLSk n7k9Yb72L07aN7GhkSK+PG OeqTD3xBL1 hY3tGtOeHoW8ZYapX675Uh AmpSVkGdqta7gzf5skxVy0 KiO3JWUaezZzvIvwEUW7c9 MnHt73F77h IHdpZHRoPSIxNSUiIHZhbG vplz0peI7eNj5+PGNvbCB3 zBN7hG0pIeNaEdC5FUgdV9 49InRvcCIv Hdgtt1ths0veiGq8IbAlRS AprkHhqDboXPR4o7YhQn27 J0LrsFpkl4HoUfb1fv11dR Ixt9Z1hEB5 H9NfOVFrhgrivZHfrFulAT 8qHVSmlkheXICqrQ5fNWQt W4p1ApHdNnR7CJnnZ6Khqw T5YIOpzMPw OScaPAA6U15el6T0UCNyVP HvXIH3jMA0fM9tiQmoejfn bGVmdDsgdmVydGljYWwtYW tlZ368ZBTq nZmeNLYsdM0uBCEmxBMqcT hsVI8oKIZqgjouYwWTUTUM DDFmFYDYHXYJRNiGHm25A2 LyUwp9ZFGs cAqsJB1snYEfEUafKn9uiF iwqNrbGI4uBZKvkpodPQGn sM6gXVPbjMCbpCxfNL9lPT Dxqhajq916 OsReCEQ6ZBIeoYSiF2MryP 6pWdVmFZZkUWTcX5IrxXIr HKalZ776PRbfHvM9OLMxul EeD9HtSYLx cFobNlU7d6Q2Ix8xJj7vPz 4hYFq9KI12NT86zQAti2U7 oJO4H4DdYPIpqcfbmbzpdB A5CKJqSYQa dV73wSOmPSnxXh8bi0D8h3 35TLNtQKWnhW88Ik0giIqi WWKylREXzB5cibwng5aumi ogIzAwMDAw LPm5BVx0BURfkXxnGnFzJH Z8GpM8LSE3gQDojS1drBsc xupwlY6hEds+MjYgWWVhcn V6N1TlVkm5 OAHreDzqNU9rhBCjQVmdTk 2qbMpfmXpxKX8bZBQhswes TCClqP7wRIOtoQEufBgcYB 4wNTBpbjtm n395IqOiLUE6RVDxvWXpF9 EgcT6tZpNyGYWbBVBxX3Ho aWXhAMolI976KYliOmY4QU FrbrKxF1Qu IKSgwJwcEqX8x6P4Zd9ZHN 0guIL4N2LkGgb7OBCbrSdl BQ8hfXRkWShuFq6hmRpuzH ufJW8bMZDo uuceYSLgjG4dDWIbbAGzfA odPL2iFTNiavgcy969NjBc WYC3ODVblCNuW2GddU7iCn AjMDAwMDAw K3DdiQVsDPiuT729OLbpNu W5UWMrinZjG8OxMDTdjYqc MaH8e1H2Jm8KkRVgJUOpMD 31MK32RR79 K0OaFfhttZZpxPT+PHRhYm xlIHdpZHRoPScxMDAlJyBz tRcgYW6wNf9vMPDiJORguL xhcHNlOiBj p9ifMPQxFNtaWB1tsUesH6 NfnWV8XHVns4y5Ah64D49a L6JvvGJ+JAHqxJV3cBU3wI 9fHnTjOsG4 PIebZ377VfGnnKYvUvcyu5 pkh0jedMc7AeLrBWVvyjVh tQyoURU3u3MsJl96T58kOV dpZHRoPSIy JXUoMGAevCvona3inZ5rEp 8+CVHuqNY4yYJ3aX2aNyDy TiT1TZhxX169JqGooQPoRc mlJ33pO1Iv dXA+NZEjIhj9APOioKkoMP 8gxQVdFKdaGe0yYZT9YwAt BzGeARilX5AsBAMghdgnen aweDT2YIBl YKAxmK38Yq4seQpkKc2tCU WyISL7UOCgtOOpL4WpcT1y YoWkMWTyVUKiE3LleHErWD jjU102MWnu HyP1WEQqivBqX6WdVJXwzL ngXnG9u0K6Ho7VmSqbrYJg GR5pIkEeRLp3N3MxBeo0RX TbbYhnMP2d cCTjEYxkRc3evZhkdLlrQM 7tGXDrufgzb565QzCce6ew UDRgmKHeIQyxDPM4Z86km6 K3CRHmCWMr JQN5iOX4jW3eeGwrjiohoJ VmdDsgdmVydGljYWwtYWxp S125UHSmzVvvAgTHMuf0N0 JoKee4XSWf pVdePZ1qjBUuCZivFf5nlS rwwOdwHP6oBINdeykxa388 DsSkx5nkETRpwFLiQFbbSQ R9S45gt8E0 ARYzXVYfLYA1wZK8sL5evY lnbjogbGVmdDsgdmVydGlj ZYgaHSwpL339RNHzpYdlYv 6CQam5Z2Ek Etp4WNAzmZuaOM2okQKnPG vrFp0ehWfhwYnhDZ7sKMKc bdnhl266KfYth1axXOLauR QgVGltZXM7 U53qr5Q4XWPuXHYeGVS8dE K6gE4ooXopsnpvsZJbsVap fuGitVygBSjmMNyoD576BY RvcDsnPlBh eWVyOjwvdGQ+MI24yt52Y5 DuNdibIba4MYApTYX5eQG3 pU2vNRMbCNplm3R9tLS5C6 YygdSqcc4z b2xs (more content not included)... Normal [facility] CNNURSEon 01-20-2021 CNNURSE Nurse Visit (CRISTIANE) ALMA ROSASUE ([id number]) 1995 F Date Time Provider Department 01/20/21 11:45 AM NURSE AYESHA [facility] SOU[facility] SAUER During your visit today, we recorded the following information about you: Referring Provider: RENETTA BELTRAN [[id number]] Allergies As of Date: 01/20/2021 (Not on File) Date Reviewed: Never Reviewed Reason for Visit: Nurse Visit [792] Primary Visit Diagnosis:Encounter for fertility testing [Z31.41] Other Visit Diagnosis:Pre-procedur e lab exam [Z01.812] Order(s):HCG QUAL UR B/O [[id number]] Order #: [id number] Prescriptions as of 01/20/2021 - Norethindrone Acet-Ethinyl Est (LOESTRIN 03/24, ,) 1-20 mg-mcg per tablet Take 1 tablet by mouth once daily. in continuous fashion Problem List As Of Date: 01/20/2021 (None) Encounter Status:Closed by HUNTER TORRES MA on 01/20/21 Normal [facility] XR HYSTEROSALPINGOGRAMon XR HYSTEROSALPINGOGRAM * * [...] nondilated tubes. No spillage. IMPRESSION: Please see BOX LOADER report for assessment of real-time findings. Diffusion Operator: PSCB Transcribe Date/Time: Jan 20 2021 1:37P Dictated by : DAYANNA LEROY MD This examination was interpreted and the report reviewed and electronically signed by: DAYANNA LEROY MD on Jan 20 2021 1:45PM EST [id number] [facility] Rubella IgGon 01-05-2021 Rubella virus IgG Qn (S) 20.80 [IU]/mL Invalid Interpretation Code Immune >0.99 [facility] Comment on above: Result Comment: Non- immune <0.90 Equivocal 0.90 - 0.99 Immune >0.99 Performed at: [facility] [address], [place] [id number] PhD Randa Ochoa Performed By: #### 5 [id number] #### [facility] [address] [place] [address] Varic IgGon 01-05-2021 VZV IgG IA Qn (S) 207 Invalid Interpretation Code Immune >165 [facility] Comment on above: Result Comment: Nega tive <135 Equivocal 135 - 165 Positive >165 A positive result generally indicates exposure to the pathogen or administration of specific immunoglobulins, but it is not indication of active infection or stage of disease. Performed at: [facility] [address], [place] [id number] PhD Randa Ochoa Performed By: #### 5 [id number] #### [facility] [address] [place] [address] Consent for Treatmenton Consent for Treatment [id number] 1110 [id number]#1.0 0CD:127 Normal [facility] Consent for Treatment [id number] [id number]#1.0 0CD:127 Normal [facility] Free T4on 01-03-2021 Free T4 [Mass/Vol] 0.75 ng/dL Normal 0.58-1.64 [facility] Comment on above: Performed By: #### 2 [id number] #### [facility] [address] [place] [address] [id number] 01-03-2021 HbA1c (Bld) [Mass fraction] 5.4 % Normal <=5.9 [facility] Comment on above: Performed By: #### 5 [id number] #### [facility] [address] [place] [address] Physician Orderon 01-03-2021 Physician Order [id number]#1. 00CD:127 Normal [facility] Physician Order [id number]#1. 00CD:127 Normal [facility] Prolactinon 01-03-2021 Prolactin [Mass/Vol] 45.14 ng/mL High 3.34-26.72 [facility] Comment on above: Performed By: #### 5 [id number] #### [facility] [address] [place] [address] TSHon 01-03-2021 TSH Qn 2.09 m[IU]/L Normal 0.34-5.60 [facility] Comment on above: Performed By: #### 2 [id number] #### [facility] [address] [place] [address] Vitamin D 25 Hydroxyon 01-03 25-hydroxyvitamin D3 [Mass/Vol] 58.1 ng/mL Normal 30.0-100.0 [facility] Comment on above: Result Comment: Vit sarabia D deficiency has been defined as a level of serum 25-OH vitamin D less than 20 ng/mL (1,2) by the [place] [employer] and an Endocrine Society practice guideline. The Endocrine Society further defined vitamin D insufficiency as a level between 21 and 29 ng/mL (2). 1. IOM ([place] [employer]). 2010. Dietary reference intakes for calcium and D. [place]: The National Academies Press. 2. Carola SHABAZZ, Pita ELLINGTON, Donna HERNANDES, et al. Evaluation, treatment, and prevention of vitamin D deficiency: an Endocrine Society clinical practice guideline. JCEM. 2010; 96 (7):1911-30. Performed By: #### 5 [id number], [id number] #### [facility] [address] [place] [address] CNCOon 12-24-2020 CNCO Letter Text Normal [facility] Coding Summary.on 11-21-2020 Coding Summary. CD:[id number] Gh 0bWw+PGhlYWQ+OI4ZFEOaG 76nwWFwiR8GI3pMGP3ZVOM NMLDVCU2HLN6sjGS4QWbkG 2VybiAv GhcgnMDkWB97TMa1WYU5zH jyNVuoyU6xaADwZ2a5IsIj HE29fX03PQgoWZNkLuD7Zy ZpbjsgbWFy F8brKtWcwILuLwb+PHRhYm xlIHdpZHRoPScxMDAlJyBz wBnnKN3zLp4rJEOeANUlzQ xhcHNlOiBj m0ikSJNbCEtiSR4csKjiB1 IubIJ5XFAap6i2Jr88jYP+ FZTwLIO9aLikXBpfv545Qi Cav0hgKDY2 rIEtZXsiUPZ4Y16wg5O8WD WkOKNyPHP2gAU7xR0mfPyh axnxF2BpxGVtNkR3VUN7zD NnxH2jbRnz oqmqrZ1yNkw+H68PZA3LCH ZCCJ0STxg1W6DiDzymjJU+ TU39LGPwGS37pVZasYSwd3 huiJw9IfWi JMDcQSU4iNhdKArea1SeMM CvN62ukLMjq4D9MLCkhTkz oYQqUtVqgSD5bX5iYUokhb xfb3nvmuax Kvheu4azso33zK86M38xCI teEGCgYTV0ADIxKZBuiLlm ra0wqV1pVs6+WGdha6hni4 upaVf9QdYj XZUtcpRmcFszHNL3t7AyBn 18C6HghIczk7FmVob2ch52 pGDsc2G4jVV5QFrdMEEaiA 2gITthPsC0 BGJmTaCeeP01xXWwDQciVt 3tlNcenWcaHV0kXMKbkdvt YKKumU7bOAYmvPZbaQraMM 4wNTBpbjtm x202PrQvTKW1VXPcbDUrW9 CiiV6aMaXnFJJwRUQuG4Nd rIAkFVypF786WVjuKhB6SZ RwgnNsQ2In WNYskJuqZeE8g7U4Os7Hh9 JzgvqjHZE9DWpxIKK0OcM5 LoDxNoY6Q6AmIiv9HIAjwR fqSE2vF7Lq SXAvmwjccsmjkNS5FJRpAE FdnJ65rAIjAQjyJm9tb5N5 r648CAYdQNQmyP08Gw2nwF ogMTBwdCBU kJ4ypipur8jporfzBpTeWJ OlCTj1COi7YWGyqVouTnOc DDW3OaI4IKM9oWRdvH3yzW rreieftT6o Oyc+W37dcC6qWCN3NPX0ey wwAICyozYnKN96KR55Q8Ep PjwvdGFibGU+PGRpdiBzdH plOO9vWrWy c1lyf4ZlDQvjL5SpDLCrSK ouUuv6TKJfZPT8zZG9aM8d JUWjUVzvi2O1uMZ3N2Sddm Pxjc8cl2du AOKcNDukU98adVOkr1W3UM EbgGV6XLMocWjiUjHldD89 Oyc+AMUfsVjmo4HsIsqxj6 gee5iujLh4 EwOdSVPvfdRofExmMKW2g0 ZgCs98L88dWCddQSUpTXWd RTArTCOprXjteg1nqZ0sRj 8+PGNvbCB3 tBY2zS9iGUDzJxG2SMdxO8 23EtWjmNSkAdlmm1zcd0xa nWb1KwXdTAVykbLzhCejXE O9x0EoAl97 K51wFSurBZQnIXAxSQDvVS GrsJbavt9yoU1zRo2+PC9j s2dznc67rR66lKF+PHRkIH L7wAesHKvo CAEnjL4uOBjrRuO1LFXpTe KlsQ28uONbEXikRg0jfYfd lAagNN8mAUFvmfxwr722An Zvb2diAYBw eETvOWffZMI6W34rp7P7YB ThZJVfYNT4yHW1qF9vsJyc bjogbGVmdDsgdmVydGljYW zdIXbaT564 IHRvcDsnPlBhdGllbnQgTm SjDOz7W8ZaRad0TRIrqOuk EY6unECsSXuyGl1zeNmisR qkST1vDROv giinc605HgIii5xcTTLimU YqRPzrERG7H61bf3Z6ERIh VIHgZUX5hRX6eV5afPnpwp ogbGVmdDsg kzHhgEqrHNbyTGufU781NP RvcDsnPkJpcnRoIERhdGU6 CE67CS37vVGho6W2hUJ9A8 BhZGRpbmct yixymMB7JQFsQAPeoW78Fi 1orZzuRe3wDRErEGU0LQHj hINwJ9ChhM5pDyGoLNJvMY CeR1AxrBLd SDbgE726AHnuVhN7YSYpmr RqU2FpVOOheOjwYgL3g2M9 Oz4RQ3N5KG24TX27uYVdn0 A2tQB2T2Gl IQCbkygprxsmbVM5PVIoLF SlbW38Sh8szPegWz3mHJZk BMK6WAAniZSuF8IgdH6qZp AjMDAwMDAw U4ZvdDEvMYccR605APioYb Y9LBAxdbSkV7IyZPLrvGry IiV6b3E3Fi9UNKm0YM50TX 99uGFqa8J3 aEF2U7PvTYJllzoruojjsT E7MJZaBKLqpO69Qe5fhRwc Jp6fLGXtHNC4SOXyeOAjL7 CstE9fBjPq DFSgINDcC5InuQJkITqdU4 74VNnpOcP9EVGjtbGkJ2Sv TTSokNbbXrQ4u2G1Gk6RSN VuSA85CTB6 rPF7SB28ED02P5MfIdnadS FibGU+PHRhYmxlIHdpZHRo LHlaYCLcDcSxtRfwBC4cBm 9yZGVyLWNv wWngvZXfRsMgk5laEUXcNP gxPB9uiTshK9XgeKT9RBOy c7o4Cn28K26xM4PugOS+PG OztNV4uJK1 xP2oHiVqBgX4OWjpA786Tm XzgOAcNzujk4cho7hbsLo6 MoS2LFUvnzYtfKeqAWQ0t9 IqQv63B23j IHdpZHRoPSIxNSUiIHZhbG ewhl0ixW0jMi6+PGNvbCB3 ePT3rX6vMwDfJdN3YTraP3 49InRvcCIv Lrcsb1zyv1fljQr1YkIqCW VggfXtmPhxKPD6w7YwZo06 L2FqmMmze9YvCim5mo70yW Gox3W4iOA9 H8QuXWVpuoqwjPBhvKwlJD 9pIRMlunahMRWhxC1cUOIi Z9l7XcUuOpT0JRzmR1Vuuv N1CYAivFTg MNdmIBI5K05bt3X0YUQcRC IqTGG1sNT6pN5veBhppwam bGVmdDsgdmVydGljYWwtYW uxM588JRQb aGpzWWUeyV7kVQNgnFKhpV rpXM9lRZGlefezRhCVDNWC AJUuZYMFFBPVVCiRLu93P0 FpGse4NLDs xIghEC5gqNNqHPycAt0zhO ljzNfpWG4vXTIdaymdLHGi eK0lNYIzeOPpdVqnHE4gQB Xjabfdx508 JmAtJIE3MVShaSDvJ0CqnQ 9wFfClRTShJLQuI5MvaMPo FLciG841MVelZpX6JTCcqn TsS0OaHBGc nYiuMzG6n9R7Hg9uFf4pBv 1zLMq7VO27OV31wLRei8O1 nAL9H4DeOLCuserjlnztqM G4GEWsVIAt gS92jNHfPUbzYv3ec1Q3o8 20DOAmMAJpxM67Eh6cwYgn AVPejSNOrO1afhqfx0tkku ogIzAwMDAw SCt3GKl6KFUdtKtoGtOgWK K1NvA5BBI5yZMczJ6xqRbt qmbieS7aLsn+MjYgWWVhcn R7W0UvAgk8 EEKyzJjePQ9zpUAxWAlnXg 0akRstsErzNC8qBVPhygdp KZBhfB7dDVQebWWewLlxLD 4wNTBpbjtm k008QzCpWZT6KSRreJPhP8 AgyB2pXbCvKGVlQCOjL7Hx xARrQLcfX031UJyrTlF4AL WdciWlA5Ft DRRdmUfoRpU8u2H7Mi7CAN 4zwTE3Z2VaJqp1OGYvbMxg DQ2qgRObLSyjZj8lsLamaW oiJS6rJMCw hmigHCYjzB8aTZOljBQxeS fnJV7yELBvlqkek368UhMi ELD6IMOwmFDyM5PgfN6uXk AjMDAwMDAw Z9DrqBJzBVczG799DDzlAt B4EZOtddPmC6QdXBZnrVtw EoR5u9Z3Oc8TGRImDJBjyH WcOfH4I9Zh PjwvdHI+LS46FSWhLF58pT AraGWpd2jicSf9DoNxVKSc ICB7uCbbPLxao7PrTTJsF7 5rfOYik0H5 CTVumIeutIEzHsGeySD5vQ 9mVRaxpyloh4mqzogtJxyq l6hthb18aQ43F38hYKvtHM RoPSIzMCUi FTKpeYyepw1ziR1uOe7+PG VvdQB3zAP3jZ0iJoAvKkF8 JYelF198AeTtnHFwZuylo8 vzk4zdkPg3 RxCzMLQrioUbbNlmJRR5b7 EbHv78Q50hSLysNTYwTPLl AJOqZDVecKhqut3sqA9gTz 8+LN5gn3dv ni73iB43wJL+SHRqRAG7pJ xyKLxuOBGvqY6cJJytOcS4 WQHtVvTxeR92lJVmDFliRw 1yaWdodDog MF8hVGBompzbc141KjMrd1 xkNDUeyELwOStyMYT7A55w t8O1NCZvABQcIJM4cPX7kX 1hbGlnbjog bGVmdDsgdmVydGljYWwtYW heD776NSOhyUkkZoRowRSd V3owobNSYN9gHlbdaXV+PH NfQUP7nAzs JChpTNJddR8dKXRjJ0i5Gc SaQsW4GUyeH2AylcK7HJRu aCOnUNQhyAMLzU2dqtauk3 xvcjogIzAw BUHtYZi2KQv7EBGnyHuxCx BjFWC3AxU4QZW9zRAmjW8g bJpxoqpvwU0sNkz+RklOOj wvdGQ+PHRk OUP7xNjfKZgoGUXjqH8uVN EtS9f4UmVkLlM6RAnfQ9Fq dwN6VCVjlZGoRZRnzZQXbT 4afxrxs1at gvsmOjNjSIUlPMx9RGw3VA PnkHigRaZhIPN8GaJ8JMO9 bVFmvA3jnMepbrdpkF4jDa c+TVJOOjwv dGQ+ENUsZEA7oOplPZxwZR VbkN7aZXOfX9u8UiRvMdL0 AUmiD4CfcaK7NYCprKEyZJ SkjXMNzO8x tsmuy1yomipjEmNkMADzJK m8YCm4NNZxcZhzEeTeHBW3 CtO5OVG5dHBkpG3krTqhro kuzD2rNla+ DDD6JWX7UU67GB81O3IaRm wvdGFibGU+PHRhYmxlIHdp ZHRoPScxMDAlJyBzdHlsZT 5hSe6uAXQr LWNv (more content not included)... Normal [facility] COVID-19 ([facility])on 11-05-2020 SARS-CoV-2 (COVID-19) RNA REEMA+probe Ql (Unsp spec) Not detected Normal Not Detected [facility] Comment on above: Result Comment: This test result should be correlated with clinical presentations and medical history by a healthcare provider to determine its clinical significance. This assay was performed by a reverse transcriptase real-time polymerase chain reaction (rt PCR) method on the [employer] system. This test has been authorized only [...] or revoked sooner. Performed By: #### 2 [id number] #### [facility] [address] [place] [address] SARS-CoV-2 (COVID-19) RNA REEMA+probe Ql (Unsp spec) Pass Normal Pass [facility] Comment on above: Performed By: #### 2 [id number] #### [facility] [address] [place] [address] Specimen source Nom (Unsp spec) Nasal Normal [facility] Comment on above: Performed By: #### 2 [id number] #### [facility] [address] [place] [address] Consent for Treatmenton 09-0 Consent for Treatment [id number]#1.0 0CD:127 Normal [facility] COVID-19 ([facility])on 11-02-2020 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 NO Normal [facility] Comment on above: Performed By: #### 2 [id number] #### [facility] [address] [place] [address] ICU NO Normal [facility] Comment on above: Performed By: #### 2 [id number] #### [facility] [address] [place] [address] ? Unknown Normal [facility] Comment on above: Performed By: #### 2 [id number] #### [facility] [address] [place] [address] Resides in a Congregate Care Setting Unknown Normal [facility] Comment on above: Performed By: #### 2 [id number] #### [facility] [address] [place] [address] Symptomatic as defined by CDC YES Normal [facility] Comment on above: Performed By: #### 2 [id number] #### [facility] [address] [place] [address] Physician Orderon 08-27-2020 Physician Order [id number]#1.0 0CD:127 Normal [facility] URon 03-22-2020 , QUAL Negative Normal NEGATIVE [facility] Comment on above: Performed By: #### P REGU #### [facility] [address] [place] [address] Juany Mccarthy [facility]02 Covid-19 PCR DETECTED Abnormal NOT DETECTED [facility] Comment on above: Result Comment: This test is not yet approved or cleared by the [place] FDA. When there are no FDA-approved or cleared tests available, and other criteria are met, FDA can make tests available under an emergency access mechanism called an Emergency Use Authorization (EUA). The EUA for this test is supported by the [place] of Health and Human Service's (HHS's) declaration [...] used). Performed By: #### C VDTB #### [facility] [address] [address] Juany Mccarthy EUA Statement SEE BELOW Normal [facility] Comment on above: Result Comment: This test is not yet approved or cleared by the [place] FDA. When there are no FDA-approved or cleared tests available, and other criteria are met, FDA can make tests available under an emergency access mechanism called an Emergency Use Authorization (EUA). The EUA for this test is supported by the [place] of Health and Human Service?s (HHS?s) declaration [...] consistent with SARS-CoV-2. Performed By: #### C [facility] #### [facility] [address] [place], [place] [address] Juany Mccarthy Encounters Encounter Date Encounter Type Care Provider Facility Start: 05-24-2023 End: 05-24-2023 ambulatory CAROLYNE EDMONDS Not Available Start: 03-19-2023 End: 03-19-2023 ambulatory MARZENA CHRYSTAL Not Available Start: 02-22-2023 End: 02-22-2023 ambulatory CAROLYNE EDMONDS Not Available Start: 03-22-2020 End: 03-22-2020 Patient encounter procedure JOE CUEVAS Facility:[facility] Start: 03-03-2020 Encounter for prepro cedural laboratory examination JOE MCGEEAUGIE [facility] Start: 02-25-2020 Encounter for other preprocedural examination JOE MCGEEAUGIE [facility] Start: 02-23-2020 End: 02-23-2020 Patient encounter procedure JOE CUEVAS Facility:[facility] Start: 02-20-2020 End: 02-20-2020 Patient encounter procedure JOE CUEVAS Facility:[facility] Start: 02-16-2020 End: 02-17-2020 Patient encounter procedure JOE CUEVAS Facility:[facility] Encounter for other preprocedural examination JOE CUEVAS [facility] Encounter for prepro cedural laboratory examination JOE CARDENASShan [facility] Payers Date Payer Category Payer Unknown [id number] 2.16.84 [id number] 1994 Unknown [id number] 2..84 [id number] 1994 Unknown [id number] 2.16.84 [id number] 1994 Unknown [id number] 2.16.84 [id number] 1994 Unknown [id number] 2.16.84 [id number] 1994 Unknown [id number] 2.16.84 [id number] 1994 Unknown [id number] [id number] 1959 Unknown [id number] 1959 Unknown [id number] 1959 Unknown [id number] Progress note 01-21-2021 Note Date & Type Note Facility 01-21-2021 Note HNO ID: [id number] Author: Dax Robert MD Service: ? Author [...] which included preparing to see the patient, zqul-vb-zora patient care, completing clinical documentation, counseling and educating the patient/family/caregiver and ordering medications, tests, or procedures. Dax Robert M.D. [facility] Procedure note 01-20-2021 Note Date & Type Note Facility 01-20-2021 Note HNO ID: [id number] Author: Renetta Beltran MD Service: Reproductive Endocrinology [...] Renetta Beltran M.D. Reproductive Endocrinology and Infertility [facility] Progress note 01-20-2021 Note Date & Type Note Facility 01-20-2021 Note HNO ID: [id number] Author: Samina Davison RT(R) Service: Radiology Author Type: Technologist Type: Progress [...] RT Juan(R) January 20, 2021 12:29 PM [facility] Progress note 01-06-2021 Note Date & Type Note Facility 01-06-2021 Note HNO ID: [id number] Author: Dax Robert MD Service: ? Author [...] images. PLAN - HSG Dax Robert MD [facility] Progress note 04-21-2020 Note Date & Type Note Facility 04-21-2020 Note HNO ID: [id number] Author: Alesia Bermudez Service: ? Author Type: Nurse Practitioner Type: Progress Notes Filed: 04/21/2020 5:19 PM Note Text: unable to reach, left message to return my call Alesia Bermudez, KATER[employer].CABLE TELEVISION TECHNICIAN April 21, 2020 1:04 PM [facility] Progress note 04-02-2020 Note Date & Type Note Facility 04-02-2020 Note HNO ID: [id number] Author: Dax Robert Service: ? Author Type: Physician Type: Progress Notes Filed: 04/02/2020 11:43 AM Note Text: Consultation requested by Dr. Cuevas in [place] for an opinion regarding IVF. My final [...] '13 AND 15, LS treatment of endometriosis ' AND 03/24 FAMILY HISTORY - mother: lung [...] which included preparing to see the patient, ozsz-zl-ykko patient care, completing clinical documentation, obtaining and/or reviewing separately obtained history and ordering medications, tests, or procedures. Dax Robert MD letter to: Joe Cuevas MD [address] [place], [place] [id number] [place] [address] Summary Purpose Family History No Family History Records FoundNo Family History Records FoundNo Family History Records FoundNo Family History Records FoundNo Family History Records Found Advance Directives No Advanced Directives Records FoundNo Advanced Directives Records FoundNo Advanced Directives Records FoundNo Advanced Directives Records FoundNo Advanced Directives Records Found Additional Source Comments INFORMATION SOURCE (unrecogn ized section and content) DATE CREATED AUTHOR 04/15/2020 [facility] DATE CREATED AUTHOR AUTHOR'S ORGANIZ ATION 01/22/2021 [facility] DATE CREATED AUTHOR AUTHOR'S ORGANIZ ATION 01/22/2021 [facility] DATE CREATED AUTHOR AUTHOR'S ORGANIZ ATION 03/31/2021 [facility] DATE CREATED AUTHOR AUTHOR'S ORGANIZ ATION 05/26/2023 [facility] FOR RECORDS PERTAINING TO PATIENTS WHO [...] BE BASED ON THE PRIMARY CLINICAL RECORDS. [facility]. provides no warranty or guarantee of the accuracy or completeness of information in this document.
--- NOTE | 2023-05-28 12:31 | MR_ITS ---
The [address] [address] Patient Name: INDU ST MRN: [id number] date: 1995 Sex: F Assigned Patient Location: MRI Current Patient Location: MRI Accession/Order Number: [id number] Exam Date: 05/28/2023 12:42 Report Date: 05/28/2023 14:22 At the request of: MARZENA JARRELL Procedure: MR head/brain wo/w con MR head/brain wo/w con, 05/28/2023 12:42 PM EDT INDICATION: Elevated prolactin levels R79.89 COMPARISON: There is no appropriate prior study for comparison. TECHNIQUE: Multiplanar, multisequential MRI images of brain were obtained without and with injection of contrast. FINDINGS: The cerebral sulci as well as ventricular system are appropriate for age. There is no restricted diffusion. Pituitary gland: 3.5 x 2.5 mm (transverse, cc) lesion in the left pituitary gland is noted most likely consistent with a microadenoma. No other abnormality of the pituitary gland is noted. The pituitary stalk is in midline. The cavernous sinuses and optic chiasma are unremarkable. There is no intracranial mass, mass effect, midline shift, intra or extra-axial fluid collection or large hemorrhage. Normal flow-void in the intracranial vessels is noted. Mucosal thickening within the left maxillary sinus and left anterior ethmoidal cells is noted. The visualized portions of orbits, mastoid air cells as well as remainder of paranasal sinuses are unremarkable. MR/MR head/brain wo/w con IMPRESSION: No acute intracranial process is noted. 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 Electronically authenticated by: SIDRA HER Date: 05/28/2023 14:22
== END 2023-05-28 12:27 | disposition home or self-care (01) ==
LOC: MRI 12:27
PROVIDERS: PCP Family Medicine; Visit Provider Obstetrics & Gynecology
DX: R79.89 Other specified abnormal findings of blood chemistry (principal)
CPT/HCPCS: 70553

== ENCOUNTER 2023-07-26 07:07 | Outpatient (OUT) | payer BC, SELFPAY ==
--- OUTSIDE RECORDS SUMMARY | 2023-07-26 07:10 | XMS_ITS | CCD ---
Author Organization [facility] Inform ion Partnership [facility] Care Team Providers Care Release Specialist Name Role Phone YASMIN MARTINEZ Consulting Unavailable CAROLYNE EDMONDS Primary Care Unavailable YASMIN MARTINEZ Admitting Unavailable RONALDKYASMIN Attending Unavailable GIGI COBB Consulting Unavailable KARASIK, YASMIN Admitting Unavailable KARASIKYASMIN Attending Unavailable YASMIN MARTINEZ Consulting Unavailable YASMIN MARTINEZ Consulting Unavailable YASMIN MARTINEZ Admitting Unavailable YASMIN MARTINEZ Attending Unavailable YASMIN MARTINEZ Primary Care Unavailable RONALDK, YASMIN Admitting Unavailable YASMIN MARTINEZ Attending Unavailable MARZENA MEADE Attending Unavailable CAROLYNE EDMONDS Attending Unavailable CAROLYNE EDMONDS Attending Unavailable Marzena Meade DO Unavailable ELTON CUMMINGS Attending Unavailable Unavailable Primary Care Provider UnavailOUSMANE Melvin Attending Unavailable Medications Current Medications Medication Drug Class(es) Dates Sig (Normalized) Sig (Original) estradiol 2 mg oral tablet (1 source) Estrogen Start: 01-21-2021 take 1 tablet by mouth once daily estradiol (ESTRACE) 2 mg tablet Take 1 tablet by mouth once daily. x 1 week for breakthrough bleeding 7 tablet 2 01/21/2021 Active Ethinyl Estradiol / Norethindrone (1 source) Estrogen Start: 03-21-2021 take 1 tablet by mouth once daily, then take 0.05 tablet by mouth once Norethindrone Acet-Ethinyl Est (LOESTRIN 03/24, ,) 1-20 mg-mcg per tablet Take 1 tablet by mouth once daily. in continuous fashion 90 tablet 3 03/21/2021 Active ondansetron 4 mg disintegrating oral tablet (1 source) Serotonin-3 Receptor Antagonist Start: 07-20-2023 End: 07-27-2023 take 1 tablet by mouth every eight hours for nausea ondansetron ODT (Zofran-ODT) 4 mg disintegrating tablet Indications: Nausea and vomiting, unspecified vomiting type Take 1 tablet (4 mg) by mouth every 8 hours if needed for nausea or vomiting for up to 7 days. 20 tablet 07/20/2023 07/27/2023 Active pantoprazole 20 mg delayed release oral tablet (1 source) Proton Pump Inhibitor Start: 07-20-2023 End: 08-09-2023 take 1 tablet by mouth once daily pantoprazole (ProtoNix) 20 mg EC tablet Indications: Gastritis, presence of bleeding unspecified, unspecified chronicity, unspecified gastritis type Take 1 tablet (20 mg) by mouth once daily for 20 days. Do not crush, chew, or split. 20 tablet 07/20/2023 08/09/2023 Active Completed/Discontinued Medications Medication Drug Class(es) Dates Sig (Normalized) Sig (Original) calcium chloride 0.0014 meq/ml / potassium chloride 0.004 meq/ml / sodium chloride 0.103 meq/ml / sodium lactate 0.028 meq/ml injectable solution (1 source) Start: 07-20-2023 End: 07-20-2023 1,000 mL, intravenous, at 999 mL/hr, Administer over 1 Hours, Once, On Sun07/20/23 at 1455, For 1 dose diphenhydrAMINE (1 source) Histamine-1 Receptor Antagonist Start: 07-20-2023 End: 07-20-2023 25 mg, intravenous, Once, On Sun07/20/23 at 1455, For 1 dose, If giving IV push, max rate of 25 mg/min. 2 ml famotidine 10 mg/ml injection (1 source) Histamine-2 Receptor Antagonist Start: 07-20-2023 End: 07-20-2023 20 mg, intravenous, Once, On Sun07/20/23 at 1910, For 1 dose Haloperidol (1 source) Typical Antipsychotic Start: 07-20-2023 End: 07-20-2023 5 mg, intramuscular, Once, On Sun07/20/23 at 1455, For 1 dose, Patients receiving IV haloperidol should be on continuous cardiac monitoring. iohexol (OMNIPaque) 350 mg iodine/mL solution 75 mL (1 source) Start: 07-20-2023 End: 07-20-2023 75 mL, intravenous, Once in imaging, Starting on Sun07/20/23 at 1739, For 1 dose iv contrast (will be provided with radiology test) (1 source) Start: 07-11-2023 End: 07-12-2023 iv contrast (will be provided with radiology test) Indications: 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HCC) MRI Pituitary Inject, intravenously, once for 1 dose. No IV access, insert saline lock prior to the beginning of sedation, infusion, injection of imaging exam. Discontinue saline lock post exam. If Pt. has a central line or IVAD, may access for administration according to line specific nursing protocol. Once exam is complete flush line and de-access according to line specific nursing protocol in the MR contrast administration guidelines link. 1 Each 0 07/11/2023 07/12/2023 1 ml ketorolac tromethamine 30 mg/ml injection (1 source) Nonsteroidal Anti-inflammatory Drug, Cyclooxygenase Inhibitor Start: 07-20-2023 End: 07-20-2023 15 mg, intravenous, Once, On Sun07/20/23 at 1650, For 1 dose 1 ml morphine sulfate 4 mg/ml injection (2 sources) Opioid Agonist Start: 07-20-2023 End: 07-20-2023 4 mg, intravenous, Once, On Sun07/20/23 at 1815, For 1 dose Problems Problem Classification Problem Date Documented Date [...] [ENDOMETRIOSIS OF PELVIC PERITONEUM] Onset: 03-24-2020 Chronic Gastritis and duodenitis (3 sources) Gastritis; Translations: [Gastritis, unspecified, without bleeding] Onset: 07-20-2023 07-20-2023 Episodic Inflammatory diseases of female pelvic organs (1 [...] Translations: [BIPOLAR DISORDER UNSPECIFIED] Onset: 03-24-2020 Chronic Nausea and vomiting (3 sources) Nausea and vomiting; Translations: [Nausea with vomiting, unspecified] Onset: 07-20-2023 07-20-2023 Episodic Other aftercare (1 source) Other bed bug exterminator (current) drug therapy; Translations: [OTH DISABILITY COUNSELOR CURRENT DRUG THERAPY] Onset: 03-24-2020 Episodic Other and unspecified benign neoplasm (1 source) Prolactinoma; Translations: [Benign neoplasm of pituitary gland] 07-11-2023 Episodic Other and unspecified benign neoplasm (1 source) Benign neoplasm of pituitary gland; 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)] Onset: 06-13-2023 Episodic Other endocrine disorders (1 source) Disorder of pituitary gland; Translations: [Disorder of pituitary gland, unspecified] 07-11-2023 Chronic Other endocrine disorders (1 source) Disorder of pituitary gland, unspecified; Translations: [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HCC)] Onset: 06-13-2023 Chronic Other non-traumatic joint disorders (1 source) Other specified arthritis, left hip; Translations: [OTHER SPECIFIED ARTHRITIS LEFT HIP] Onset: 03-24-2020 Chronic Other non-traumatic joint disorders (1 source) Other specified arthritis, right hip; Translations: [OTHER SPECIFIED ARTHRITIS RIGHT HIP] Onset: 03-24-2020 Chronic Other screening for suspected conditions (not mental disorders or infectious disease) (2 sources) Increased prolactin level; Translations: [Other specified abnormal findings of blood chemistry] Onset: 06-13-2023 07-11-2023 Episodic Residual codes; unclassified (4 sources) Procedure and treatment not carried out, unspecified reason; Translations: [PROC AND TX NOT CARRIED OUT UNS REASON] Onset: 02-23-2020 Episodic Unclassified (1 source) COVID-19; Translations: [COVID-19] Onset: 03-03-2020 Results Test Name Value Interpretation Reference Range Facility CBC W Auto Differential pane l (Bld)on 07-20-2023 Basophils (Bld) [#/Vol] 0.03 x10*3/uL Normal 0.00-0.10 [facility] Comment on above: Performed By: #### 5 7021-8 #### JIMENA Mark ([id number]) [facility] ([facility]) [address] [place] [address] [id number] Basophils/100 WBC (Bld) 0.3 % Normal 0.0-2.0 [facility] Comment on above: Performed By: #### 5 7021-8 #### JIMENA Mark ([id number]) [facility] ([facility]) [address] [place] [address] 05493 Eosinophils (Bld) [#/Vol] 0.00 x10*3/uL Normal 0.00-0.70 [facility] Comment on above: Performed By: #### 5 70-8 #### JIMENA Mark ([id number]) [facility] ([facility]) [address] [place] [address] 25477 Eosinophils/100 WBC (Bld) 0.0 % Normal 0.0-6.0 [facility] Comment on above: Performed By: #### 5 7021-8 #### JIMENA Mark ([id number]) [facility] ([facility]) [address] [place] [address] 89176 Erythrocyte distribution width (RBC) [Ratio] 14.5 % Normal 11.5-14.5 [facility] Comment on above: Performed By: #### 5 7021-8 #### JIMENA Mark ([id number]) [facility] ([facility]) [address] [place] [address] 46589 Hematocrit (Bld) [Volume fraction] 39.1 % Normal 36.0-46.0 [facility] Comment on above: Performed By: #### 5 70-8 #### JIMENA Mark ([id number]) [facility] ([facility]) [address] [place] [address] [phone] Hemoglobin (Bld) [Mass/Vol] 13.5 g/dL Normal 12.0-16.0 [facility] Comment on above: Performed By: #### 5 7021-8 #### JIMENA Mark ([id number]) [facility] ([facility]) [address] [place] [address] 38234 Immature granulocytes (Bld) [#/Vol] 0.03 x10*3/uL Normal 0.00-0.70 [facility] Comment on above: Performed By: #### 5 7021-8 #### JIMENA Mark ([id number]) [facility] ([facility]) [address] [place] [address] Immature granulocytes/100 WBC (Bld) 0.3 % Normal 0.0-0.9 [facility] Comment on above: Result Comment: Yanet ture Granulocyte Count (IG) includes promyelocytes, myelocytes and metamyelocytes but does not include bands. Percent differential counts (%) should be interpreted in the context of the absolute cell counts (cells/UL). Performed By: #### 5 7021-8 #### JIMENA Mark ([id number]) [facility] ([facility]) [address] [place] [address] 45471 Lymphocytes (Bld) [#/Vol] 0.98 x10*3/uL Low 1.20-4.80 [facility] Comment on above: Performed By: #### 5 7021-8 #### JIMENA Mark ([id number]) [facility] ([facility]) [address] [place] [address] 90535 Lymphocytes/100 WBC (Bld) 8.5 % Normal 13.0-44.0 [facility] Comment on above: Performed By: #### 5 7021-8 #### JIMENA Mark ([id number]) [facility] ([facility]) [address] [place] [address] 16638 MCH (RBC) [Entitic mass] 28.7 pg Normal 26.0-34.0 [facility] Comment on above: Performed By: #### 5 7021-8 #### JIMENA Mark ([id number]) [facility] ([facility]) [address] [place] [address] MCHC (RBC) [Mass/Vol] 34.5 g/dL Normal 32.0-36.0 [facility] Comment on above: Performed By: #### 5 7021-8 #### JIMENA Mark ([id number]) [facility] ([facility]) [address] [place] [address] MCV (RBC) [Entitic vol] 83 fL Normal 80-100 [facility] Comment on above: Performed By: #### 5 7021-8 #### JIMENA Mark ([id number]) [facility] ([facility]) [address] [place] [address] Monocytes (Bld) [#/Vol] 0.13 x10*3/uL Normal 0.10-1.00 [facility] Comment on above: Performed By: #### 5 7021-8 #### JIMENA Mark ([id number]) [facility] ([facility]) [address] [place] [address] Monocytes/100 WBC (Bld) 1.1 % Normal 2.0-10.0 [facility] Comment on above: Performed By: #### 5 7021-8 #### JIMENA Mark ([id number]) [facility] ([facility]) [address] [place] [address] Neutrophils (Bld) [#/Vol] 10.32 x10*3/uL High 1.20-7.70 [facility] Comment on above: Result Comment: Perc ent differential counts (%) should be interpreted in the context of the absolute cell counts (cells/uL). Performed By: #### 5 7021-8 #### JIMENA Mark ([id number]) [facility] ([facility]) [address] [place] [address] 44636 Neutrophils/100 WBC (Bld) 89.8 % Normal 40.0-80.0 [facility] Comment on above: Performed By: #### 5 7021-8 #### JIMENA Mark ([id number]) [facility] ([facility]) [address] [place] [address] Nucleated RBC/100 WBC (Bld) [Ratio] 0.0 /100 WBCs Normal 0.0-0.0 [facility] Comment on above: Performed By: #### 5 7021-8 #### JIMENA Mark ([id number]) [facility] ([facility]) [address] [place] [address] Platelets (Bld) [#/Vol] 290 x10*3/uL Normal 150-450 [facility] Comment on above: Performed By: #### 5 7021-8 #### JIMENA Mark ([id number]) [facility] ([facility]) [address] [place] [address] RBC (Bld) [#/Vol] 4.71 x10*6/uL Normal 4.00-5.20 [facility] Comment on above: Performed By: #### 5 7021-8 #### JIMENA Mark ([id number]) [facility] ([facility]) [address] [place] [address] WBC (Bld) [#/Vol] 11.5 x10*3/uL High 4.4-11.3 [facility] Comment on above: Performed By: #### 5 7021-8 #### JIMENA Mark ([id number]) [facility] ([facility]) [address] [place] [address] Basophils (Bld) [#/Vol] 0.03 10*3/uL [facility] Basophils/100 WBC (Bld) 0.3 % 0.0 - 2.0 % [facility] Eosinophils (Bld) [#/Vol] 0.00 10*3/uL [facility] Eosinophils/100 WBC (Bld) 0.0 % 0.0 - 6.0 % [facility] Erythrocyte distribution width (RBC) [Ratio] 14.5 % 11.5 - 14.5 % [facility] Hematocrit (Bld) [Volume fraction] 39.1 % 36.0 - 46.0 % [facility] Hemoglobin (Bld) [Mass/Vol] 13.5 g/dL 12.0 - 16.0 g/dL [facility] Immature granulocytes (Bld) [#/Vol] 0.03 10*3/uL [facility] Immature granulocytes/100 WBC (Bld) 0.3 % 0.0 - 0.9 % [facility] Comment on above: Immature Granulocyte Count (IG) includes promyelocytes, myelocytes and metamyelocytes but does not include bands. Percent differential counts (%) should be interpreted in the context of the absolute cell counts (cells/UL). Interpretation and review of laboratory results Abnormal [facility] Lymphocytes (Bld) [#/Vol] 0.98 10*3/uL Low [facility] Lymphocytes/100 WBC (Bld) 8.5 % 13.0 - 44.0 % [facility] MCH (RBC) [Entitic mass] 28.7 pg 26.0 - 34.0 pg [facility] MCHC (RBC) [Mass/Vol] 34.5 g/dL 32.0 - 36.0 g/dL [facility] MCV (RBC) [Entitic vol] 83 fL 80 - 100 fL [facility] Monocytes (Bld) [#/Vol] 0.13 10*3/uL [facility] Monocytes/100 WBC (Bld) 1.1 % 2.0 - 10.0 % [facility] Neutrophils (Bld) [#/Vol] 10.32 10*3/uL High [facility] Comment on above: Percent differential counts (%) should be interpreted in the context of the absolute cell counts (cells/uL). Neutrophils/100 WBC (Bld) 89.8 % 40.0 - 80.0 % [facility] Nucleated RBC/100 WBC (Bld) [Ratio] 0.0 % [facility] Platelets (Bld) [#/Vol] 290 10*3/uL [facility] RBC (Bld) [#/Vol] 4.71 10*6/uL [facility] WBC (Bld) [#/Vol] 11.5 10*3/[facility] CT CHEST ABDOMEN PELVIS W IV CONTRASTon 07-20-2023 CT CHEST ABDOMEN PELVIS W IV CONTRAST Interpreted By: Mag Santiago, STUDY: CT CHEST ABDOMEN PELVIS W IV CONTRAST; 07/20/2023 5:39 pm INDICATION: Signs/Symptoms:Persis tent vomiting, epigastric pain in the chest.. COMPARISON: Chest x-ray 07/20/2023. ACCESSION NUMBER(S): [id number] ORDERING CLINICIAN: ABIODUN OCHOA TECHNIQUE: Axial CT of the chest, abdomen, and pelvis was performed. Coronal and sagittal reconstructions were performed. Intravenous contrast material was administered without immediate complication. FINDINGS: There is motion artifact. CHEST: LUNG/PLEURA/LARGE AIRWAYS: The trachea and the central airways are patent. There is biapical pleural scarring. No focal consolidation, pleural effusion or pneumothorax. VESSELS: No thoracic aortic aneurysm. HEART: The heart is not enlarged. No pericardial effusion. MEDIASTINUM AND PASHA: No pathologically enlarged lymph nodes at the mediastinum, hilar or axillary regions. There is edematous wall thickening of the distal esophagus at the GE junction. CHEST WALL AND LOWER NECK: Small nodules are noted at the right lobe of the thyroid gland, the largest measuring 7 mm. The soft tissues of the chest wall demonstrate no gross abnormality. ABDOMEN: LIVER: There is periportal edema. The liver is enlarged measuring 19.5 cm in craniocaudal diameter. BILE DUCTS: No significant dilation. GALLBLADDER: Present. PANCREAS: No peripancreatic inflammatory changes. SPLEEN: Unremarkable. ADRENAL GLANDS: Unremarkable. KIDNEYS AND URETERS: Symmetrical renal enhancement. No hydronephrosis or hydroureter. PELVIS BLADDER: The urinary bladder is partially distended. REPRODUCTIVE ORGANS: The uterus is present. BOWEL: The evaluation of the bowel is degraded by motion artifact. There is fluid distention of the stomach. There is wall thickening at the gastric pylorus. No dilated bowel loops to suggest obstruction. The colon is decompressed with diffuse wall thickening. The appendix is normal. VESSELS: No abdominal aortic aneurysm. PERITONEUM/RETROPERIT ONEUM/LYMPH NODES: No free fluid or free air. No retroperitoneal hemorrhage. No pathologically enlarged lymph nodes are identified. BONE AND SOFT TISSUE: No acute osseous findings. . The abdominal wall soft tissues are within normal limits. IMPRESSION: CHEST: 1. No consolidation or pleural effusion. 2. Small nodules at the right lobe of the thyroid gland measuring up to 7 mm. Nonemergent thyroid ultrasound can be obtained for further evaluation. 3. Edematous wall thickening at the distal esophagus at the GE junction, suggestive of esophagitis. Evaluation with upper endoscopy as clinically warranted. ABDOMEN-PELVIS: 1. Hepatomegaly. Periportal edema, may be seen with hepatic congestion or hepatitis. Please correlate with laboratory values. 2. Wall thickening at the gastric pylorus, may be due to underdistention versus gastritis or ulcer disease. Evaluation with upper endoscopy as clinically warranted. 3. Diffuse colonic wall thickening, may be secondary to underdistention versus colitis. MACRO: None. Signed by: Mag Santiago 07/20/2023 6:51 PM Dictation workstation: [id number] [facility] CT Chest and Abdomen and Pel vis W contrast Cortes 07-20-2023 CHEST: 1. No consolidation or pleural effusion. 2. Small nodules at the right lobe of the thyroid gland measuring up to 7 mm. Nonemergent thyroid ultrasound can be obtained for further evaluation. 3. Edematous wall thickening at the distal esophagus at the GE junction, suggestive of esophagitis. Evaluation with upper endoscopy as clinically warranted. ABDOMEN-PELVIS: 1. Hepatomegaly. Periportal edema, may be seen with hepatic congestion or hepatitis. Please correlate with laboratory values. 2. Wall thickening at the gastric pylorus, may be due to underdistention versus gastritis or ulcer disease. Evaluation with upper endoscopy as clinically warranted. 3. Diffuse colonic wall thickening, may be secondary to underdistention versus colitis. MACRO: None. Signed by: Mag Santiago 07/20/2023 6:51 PM Dictation workstation: [id number] Interpreted By: Mag Santiago, STUDY: CT CHEST ABDOMEN PELVIS W IV CONTRAST; 07/20/2023 5:39 pm INDICATION: Signs/Symptoms:Persis tent vomiting, epigastric pain in the chest.. COMPARISON: Chest x-ray 07/20/2023. ACCESSION NUMBER(S): [id number] ORDERING CLINICIAN: ABIODUN OCHOA TECHNIQUE: Axial CT of the chest, abdomen, and pelvis was performed. Coronal and sagittal reconstructions were performed. Intravenous contrast material was administered without immediate complication. FINDINGS: There is motion artifact. CHEST: LUNG/PLEURA/LARGE AIRWAYS: The trachea and the central airways are patent. There is biapical pleural scarring. No focal consolidation, pleural effusion or pneumothorax. VESSELS: No thoracic aortic aneurysm. HEART: The heart is not enlarged. No pericardial effusion. MEDIASTINUM AND PASHA: No pathologically enlarged lymph nodes at the mediastinum, hilar or axillary regions. There is edematous wall thickening of the distal esophagus at the GE junction. CHEST WALL AND LOWER NECK: Small nodules are noted at the right lobe of the thyroid gland, the largest measuring 7 mm. The soft tissues of the chest wall demonstrate no gross abnormality. ABDOMEN: LIVER: There is periportal edema. The liver is enlarged measuring 19.5 cm in craniocaudal diameter. BILE DUCTS: No significant dilation. GALLBLADDER: Present. PANCREAS: No peripancreatic inflammatory changes. SPLEEN: Unremarkable. ADRENAL GLANDS: Unremarkable. KIDNEYS AND URETERS: Symmetrical renal enhancement. No hydronephrosis or hydroureter. PELVIS BLADDER: The urinary bladder is partially distended. REPRODUCTIVE ORGANS: The uterus is present. BOWEL: The evaluation of the bowel is degraded by motion artifact. There is fluid distention of the stomach. There is wall thickening at the gastric pylorus. No dilated bowel loops to suggest obstruction. The colon is decompressed with diffuse wall thickening. The appendix is normal. VESSELS: No abdominal aortic aneurysm. PERITONEUM/RETROPERIT ONEUM/LYMPH NODES: No free fluid or free air. No retroperitoneal hemorrhage. No pathologically enlarged lymph nodes are identified. BONE AND SOFT TISSUE: No acute osseous findings. . The abdominal wall soft tissues are within normal limits. [facility] MM[facility]AL Mag Santiago, DO - 07/20/2023 Interpreted By: Mag Santiago, STUDY: CT CHEST ABDOMEN PELVIS W IV CONTRAST; 07/20/2023 5:39 pm INDICATION: Signs/Symptoms:Persis tent vomiting, epigastric pain in the chest.. COMPARISON: Chest x-ray 07/20/2023. ACCESSION NUMBER(S): [id number] ORDERING CLINICIAN: ABIODUN OCHOA TECHNIQUE: Axial CT of the chest, abdomen, and pelvis was performed. Coronal and sagittal reconstructions were performed. Intravenous contrast material was administered without immediate complication. FINDINGS: There is motion artifact. CHEST: LUNG/PLEURA/LARGE AIRWAYS: The trachea and the central airways are patent. There is biapical pleural scarring. No focal consolidation, pleural effusion or pneumothorax. VESSELS: No thoracic aortic aneurysm. HEART: The heart is not enlarged. No pericardial effusion. MEDIASTINUM AND PASHA: No pathologically enlarged lymph nodes at the mediastinum, hilar or axillary regions. There is edematous wall thickening of the distal esophagus at the GE junction. CHEST WALL AND LOWER NECK: Small nodules are noted at the right lobe of the thyroid gland, the largest measuring 7 mm. The soft tissues of the chest wall demonstrate no gross abnormality. ABDOMEN: LIVER: There is periportal edema. The liver is enlarged measuring 19.5 cm in craniocaudal diameter. BILE DUCTS: No significant dilation. GALLBLADDER: Present. PANCREAS: No peripancreatic inflammatory changes. SPLEEN: Unremarkable. ADRENAL GLANDS: Unremarkable. KIDNEYS AND URETERS: Symmetrical renal enhancement. No hydronephrosis or hydroureter. PELVIS BLADDER: The urinary bladder is partially distended. REPRODUCTIVE ORGANS: The uterus is present. BOWEL: The evaluation of the bowel is degraded by motion artifact. There is fluid distention of the stomach. There is wall thickening at the gastric pylorus. No dilated bowel loops to suggest obstruction. The colon is decompressed with diffuse wall thickening. The appendix is normal. VESSELS: No abdominal aortic aneurysm. PERITONEUM/RETROPERIT ONEUM/LYMPH NODES: No free fluid or free air. No retroperitoneal hemorrhage. No pathologically enlarged lymph nodes are identified. BONE AND SOFT TISSUE: No acute osseous findings. . The abdominal wall soft tissues are within normal limits. IMPRESSION: CHEST: 1. No consolidation or pleural effusion. 2. Small nodules at the right lobe of the thyroid gland measuring up to 7 mm. Nonemergent thyroid ultrasound can be obtained for further evaluation. 3. Edematous wall thickening at the distal esophagus at the GE junction, suggestive of esophagitis. Evaluation with upper endoscopy as clinically warranted. ABDOMEN-PELVIS: 1. Hepatomegaly. Periportal edema, may be seen with hepatic congestion or hepatitis. Please correlate with laboratory values. 2. Wall thickening at the gastric pylorus, may be due to underdistention versus gastritis or ulcer disease. Evaluation with upper endoscopy as clinically warranted. 3. Diffuse colonic wall thickening, may be secondary to underdistention versus colitis. MACRO: None. Signed by: Mag Santiago 07/20/2023 6:51 PM Dictation workstation: [id number] [facility] Work Phone: Radiology Study observation (narrative) [facility] Work Phone: CT Chest and Abdomen and Pel vis W contrast IVOrdered By: Mag Santiago on 07-20-2023 [facility] Work Phone: Choriogonadotropin.beta subu niton 07-20-2023 HCG.beta subunit Qn m[IU]/mL Normal <5 [facility] Comment on above: Order Comment: Total HCG measurement is performed using the Jade [place] Access Immunoassay which detects intact HCG and free beta HCG subunit. This test is not indicated for use as a tumor marker. HCG testing is performed using a different test methodology at [facility] than other [facility]. Direct result comparison should only be made within the same method. Performed By: #### 2 1198-7 #### JIMENA Mark ([id number]) [facility] ([facility]) [address] [place] [address] Comprehensive metabolic 2000 panelon 07-20-2023 Albumin BCP dye [Mass/Vol] 4.7 g/dL Normal 3.4-5.0 [facility] Comment on above: Performed By: #### 2 4323-8 #### JIMENA Mark ([id number]) [facility] ([facility]) [address] [place] [address] 51406 ALP [Catalytic activity/Vol] 47 U/L Normal 33-110 [facility] Comment on above: Performed By: #### 2 4323-8 #### JIMENA Mark ([id number]) [facility] ([facility]) [address] [place] [address] 99892 ALT With P-5'-P [Catalytic activity/Vol] 14 U/L Normal 7-45 [facility] Comment on above: Result Comment: Edel ents treated with Sulfasalazine may generate falsely decreased results for ALT. Performed By: #### 2 4323-8 #### JIMENA Mark ([id number]) [facility] ([facility]) [address] [place] [address] 63410 Anion gap [Moles/Vol] 18 mmol/L Normal 10-20 [facility] Comment on above: Performed By: #### 2 4323-8 #### JIMENA Mark ([id number]) [facility] ([facility]) [address] [place] [address] 59866 AST With P-5'-P [Catalytic activity/Vol] 15 U/L Normal 9-39 [facility] Comment on above: Performed By: #### 2 4323-8 #### JIMENA Mark ([id number]) [facility] ([facility]) [address] [place] [address] 67355 Bilirubin [Mass/Vol] 0.6 mg/dL Normal 0.0-1.2 [facility] Comment on above: Performed By: #### 2 432-8 #### JIMENA Mark ([id number]) [facility] ([facility]) [address] [place] [address] 17157 Calcium [Mass/Vol] 9.8 mg/dL Normal 8.6-10.3 [facility] Comment on above: Performed By: #### 2 4322-8 #### JIMENA Mark ([id number]) [facility] ([facility]) [address] [place] [address] 12813 Chloride [Moles/Vol] 105 mmol/L Normal 98-107 [facility] Comment on above: Performed By: #### 2 4323-8 #### JIMENA Mark ([id number]) [facility] ([facility]) [address] [place] [address] 54877 CO2 [Moles/Vol] 19 mmol/L Low 21-32 [facility] Comment on above: Performed By: #### 2 4323-8 #### JIMENA Mark ([id number]) [facility] ([facility]) [address] [place] [address] 41689 Creatinine [Mass/Vol] 0.77 mg/dL Normal 0.50-1.05 [facility] Comment on above: Performed By: #### 2 3-8 #### JIMENA Mark ([id number]) [facility] ([facility]) [address] [place] [address] 13941 GFR/1.73 sq M.predicted MDRD (S/P/Bld) [Vol rate/Area] mL/min/{1.73_m2} Normal >60 [facility] Comment on above: Result Comment: Calc ulations of estimated GFR are performed using the 2020 CKD-EPI Study Refit equation without the race variable for the IDMS-Traceable creatinine methods. https://jasn.asnjournals.org/content/early//ASN.2020 530304 Performed By: #### 2 4323-8 #### JIMENA Mark ([id number]) [facility] ([facility]) [address] [place] [address] 82164 Glucose [Mass/Vol] 147 mg/dL High 74-99 [facility] Comment on above: Performed By: #### 2 4323-8 #### JIMENA Mark ([id number]) [facility] ([facility]) [address] [place] [address] 43451 Potassium [Moles/Vol] 3.8 mmol/L Normal 3.5-5.3 [facility] Comment on above: Performed By: #### 2 4323-8 #### JIMENA Mark ([id number]) [facility] ([facility]) [address] [place] [address] 73320 Protein [Mass/Vol] 7.3 g/dL Normal 6.4-8.2 [facility] Comment on above: Performed By: #### 2 4323-8 #### JIMENA Mark ([id number]) [facility] ([facility]) [address] [place] [address] 74820 Sodium [Moles/Vol] 138 mmol/L Normal 136-145 [facility] Comment on above: Performed By: #### 2 4323-8 #### JIMENA Mark ([id number]) [facility] ([facility]) [address] [place] [address] 62312 Urea nitrogen [Mass/Vol] 15 mg/dL Normal 6-23 [facility] Comment on above: Performed By: #### 2 4323-8 #### JIMENA MENDY Makr ([id number]) [facility] ([facility]) [address] [place] [address] 19624 Albumin BCP dye [Mass/Vol] 4.7 g/dL 3.4 - 5.0 g/dL [facility] ALP [Catalytic activity/Vol] 47 U/L 33 - 110 U/L [facility] ALT With P-5'-P [Catalytic activity/Vol] 14 U/L 7 - 45 U/L [facility] Comment on above: Patients treated wit h Sulfasalazine may generate falsely decreased results for ALT. Anion gap [Moles/Vol] 18 mmol/L 10 - 2 0 mmol/L [facility] AST With P-5'-P [Catalytic activity/Vol] 15 U/L 9 - 39 U/L [facility] Bilirubin [Mass/Vol] 0.6 mg/dL 0.0 - 1 .2 mg/dL [facility] Calcium [Mass/Vol] 9.8 mg/dL 8.6 - 10. 3 mg/dL [facility] Chloride [Moles/Vol] 105 mmol/L 98 - 10 7 mmol/L [facility] CO2 [Moles/Vol] 19 mmol/L Low 21 - 32 mmol/L [facility] Creatinine [Mass/Vol] 0.77 mg/dL 0.50 - 1.05 mg/dL [facility] eGFR - PINF [facility] Comment on above: Calculations of lesli mated GFR are performed using the 2020 CKD-EPI Study Refit equation without the race variable for the IDMS-Traceable creatinine methods. https://jasn.asnjournals.org/content//ASN.2020 597889 Glucose [Mass/Vol] 147 mg/dL High 74 - 99 mg/dL [facility] Interpretation and review of laboratory results Abnormal [facility] Potassium [Moles/Vol] 3.8 mmol/L 3.5 - 5.3 mmol/L [facility] Protein [Mass/Vol] 7.3 g/dL 6.4 - 8.2 g/dL [facility] Sodium [Moles/Vol] 138 mmol/L 136 - 145 mmol/L [facility] Urea nitrogen [Mass/Vol] 15 mg/dL 6 - 23 mg/dL [facility] DRUG SCREEN,URINEon 07-20-19 24 Amphetamines Screen Ql (U) Negative Normal Presumptive Negative [facility] Comment on above: Order Comment: Drug screen results are presumptive and should not be used to assess compliance with prescribed medication. Contact the performing [facility] laboratory to add-on definitive confirmatory testing if clinically indicated. Toxicology screening results are reported qualitatively. The concentration must ???be greater than or equal to the cutoff to be reported as positive. The concentration at which the screening test can detect an individual drug or metabolite varies. The absence of expected drug(s) and/or drug metabolite(s) may indicate non-compliance, inappropriate timing of specimen collection relative to drug administration, poor drug absorption, diluted/adulterated urine, or limitations of testing. For medical purposes only; not valid for forensic use. Interpretive questions should be directed to the laboratory medical directors. Result Comment: CUTO FF LEVEL: 500 NG/ML Cross-reactivity has been reported with high concentrations of the following drugs: buproprion, chloroquine, chlorpromazine, ephedrine, mephentermine, fenfluramine, phentermine, phenylpropanolamine, pseudoephedrine, and propranolol. Performed By: #### D RUG3 #### JIMENA Mark ([id number]) [facility] ([facility]) [address] [place] [address] 10154 Barbiturates Screen Ql (U) Negative Normal Presumptive Negative [facility] Comment on above: Order Comment: Drug screen results are presumptive and should not be used to assess compliance with prescribed medication. Contact the performing [facility] laboratory to add-on definitive confirmatory testing if clinically indicated. Toxicology screening results are reported qualitatively. The concentration must ???be greater than or equal to the cutoff to be reported as positive. The concentration at which the screening test can detect an individual drug or metabolite varies. The absence of expected drug(s) and/or drug metabolite(s) may indicate non-compliance, inappropriate timing of specimen collection relative to drug administration, poor drug absorption, diluted/adulterated urine, or limitations of testing. For medical purposes only; not valid for forensic use. Interpretive questions should be directed to the laboratory medical directors. Result Comment: CUTO FF LEVEL: 200 NG/ML Performed By: #### D RUG3 #### JIMENA Mark ([id number]) [facility] ([facility]) [address] [place] [address] 32171 Benzodiazepines Ql (U) Negative Normal Presu mptive Negative [facility] Comment on above: Order Comment: Drug screen results are presumptive and should not be used to assess compliance with prescribed medication. Contact the performing [facility] laboratory to add-on definitive confirmatory testing if clinically indicated. Toxicology screening results are reported qualitatively. The concentration must ???be greater than or equal to the cutoff to be reported as positive. The concentration at which the screening test can detect an individual drug or metabolite varies. The absence of expected drug(s) and/or drug metabolite(s) may indicate non-compliance, inappropriate timing of specimen collection relative to drug administration, poor drug absorption, diluted/adulterated urine, or limitations of testing. For medical purposes only; not valid for forensic use. Interpretive questions should be directed to the laboratory medical directors. Result Comment: CUTO FF LEVEL: 200 NG/ML Performed By: #### D RUG3 #### JIMENA Mark ([id number]) [facility] ([facility]) [address] [place] [address] 09929 Benzoylecgonine Screen Ql (U) Negative Normal Presumptive Negative [facility] Comment on above: Order Comment: Drug screen results are presumptive and should not be used to assess compliance with prescribed medication. Contact the performing [facility] laboratory to add-on definitive confirmatory testing if clinically indicated. Toxicology screening results are reported qualitatively. The concentration must ???be greater than or equal to the cutoff to be reported as positive. The concentration at which the screening test can detect an individual drug or metabolite varies. The absence of expected drug(s) and/or drug metabolite(s) may indicate non-compliance, inappropriate timing of specimen collection relative to drug administration, poor drug absorption, diluted/adulterated urine, or limitations of testing. For medical purposes only; not valid for forensic use. Interpretive questions should be directed to the laboratory medical directors. Result Comment: CUTO FF LEVEL: 150 NG/ML Performed By: #### D RUG3 #### JIMENA Mark ([id number]) [facility] ([facility]) [address] [place] [address] 90251 Cannabinoids Screen Ql (U) Positive Abnormal Presumptive Negative [facility] Comment on above: Order Comment: Drug screen results are presumptive and should not be used to assess compliance with prescribed medication. Contact the performing [facility] laboratory to add-on definitive confirmatory testing if clinically indicated. Toxicology screening results are reported qualitatively. The concentration must ???be greater than or equal to the cutoff to be reported as positive. The concentration at which the screening test can detect an individual drug or metabolite varies. The absence of expected drug(s) and/or drug metabolite(s) may indicate non-compliance, inappropriate timing of specimen collection relative to drug administration, poor drug absorption, diluted/adulterated urine, or limitations of testing. For medical purposes only; not valid for forensic use. Interpretive questions should be directed to the laboratory medical directors. Result Comment: CUTO FF LEVEL: 50 NG/ML Performed By: #### D RUG3 #### JIMENA Mark ([id number]) [facility] ([facility]) [address] [place] [address] fentaNYL+Norfentanyl Screen Ql (U) Negative Normal Presumptive Negative [facility] Comment on above: Order Comment: Drug screen results are presumptive and should not be used to assess compliance with prescribed medication. Contact the performing [facility] laboratory to add-on definitive confirmatory testing if clinically indicated. Toxicology screening results are reported qualitatively. The concentration must ???be greater than or equal to the cutoff to be reported as positive. The concentration at which the screening test can detect an individual drug or metabolite varies. The absence of expected drug(s) and/or drug metabolite(s) may indicate non-compliance, inappropriate timing of specimen collection relative to drug administration, poor drug absorption, diluted/adulterated urine, or limitations of testing. For medical purposes only; not valid for forensic use. Interpretive questions should be directed to the laboratory medical directors. Result Comment: CUTO FF LEVEL: 5 NG/ML Performed By: #### D RUG3 #### JIMENA Mark ([id number]) [facility] ([facility]) [address] [place] [address] 63289 Methadone Screen Ql (U) Negative Normal Pres umptive Negative [facility] Comment on above: Order Comment: Drug screen results are presumptive and should not be used to assess compliance with prescribed medication. Contact the performing [facility] laboratory to add-on definitive confirmatory testing if clinically indicated. Toxicology screening results are reported qualitatively. The concentration must ???be greater than or equal to the cutoff to be reported as positive. The concentration at which the screening test can detect an individual drug or metabolite varies. The absence of expected drug(s) and/or drug metabolite(s) may indicate non-compliance, inappropriate timing of specimen collection relative to drug administration, poor drug absorption, diluted/adulterated urine, or limitations of testing. For medical purposes only; not valid for forensic use. Interpretive questions should be directed to the laboratory medical directors. Result Comment: CUTO FF LEVEL: 150 NG/ML The metabolite F-jwmye-yrhtdavocaylai (LAAM) is not detected by this method in concentrations that would be found in the urine of patients on LAAM therapy. Performed By: #### Kobi BRIONES3 #### JIMENA Mark ([id number]) [facility] ([facility]) [address] [place] [address] 54420 Opiates Screen Ql (U) Negative Normal Presum ptive Negative [facility] Comment on above: Order Comment: Drug screen results are presumptive and should not be used to assess compliance with prescribed medication. Contact the performing [facility] laboratory to add-on definitive confirmatory testing if clinically indicated. Toxicology screening results are reported qualitatively. The concentration must ???be greater than or equal to the cutoff to be reported as positive. The concentration at which the screening test can detect an individual drug or metabolite varies. The absence of expected drug(s) and/or drug metabolite(s) may indicate non-compliance, inappropriate timing of specimen collection relative to drug administration, poor drug absorption, diluted/adulterated urine, or limitations of testing. For medical purposes only; not valid for forensic use. Interpretive questions should be directed to the laboratory medical directors. Result Comment: CUTO FF LEVEL: 300 NG/ML The opiate screen does not detect fentanyl, meperidine, or tramadol. Oxycodone is not consistently detected (refer to Oxycodone Screen, Urine result). Performed By: #### Kobi BRIONES3 #### JIMENA Mark ([id number]) [facility] ([facility]) [address] [place] [address] 14377 oxyCODONE+oxyMORphone Screen Ql (U) Negative Normal Presumptive Negative [facility] Comment on above: Order Comment: Drug screen results are presumptive and should not be used to assess compliance with prescribed medication. Contact the performing [facility] laboratory to add-on definitive confirmatory testing if clinically indicated. Toxicology screening results are reported qualitatively. The concentration must ???be greater than or equal to the cutoff to be reported as positive. The concentration at which the screening test can detect an individual drug or metabolite varies. The absence of expected drug(s) and/or drug metabolite(s) may indicate non-compliance, inappropriate timing of specimen collection relative to drug administration, poor drug absorption, diluted/adulterated urine, or limitations of testing. For medical purposes only; not valid for forensic use. Interpretive questions should be directed to the laboratory medical directors. Result Comment: CUTO FF LEVEL: 100 NG/ML This test will accurately detect both oxycodone and oxymorphone. Performed By: #### Kobi BRIONES3 #### JIMENA Mark ([id number]) [facility] ([facility]) [address] [place] [address] 83554 Phencyclidine Ql (U) Negative Normal Presump tive Negative [facility] Comment on above: Order Comment: Drug screen results are presumptive and should not be used to assess compliance with prescribed medication. Contact the performing [facility] laboratory to add-on definitive confirmatory testing if clinically indicated. Toxicology screening results are reported qualitatively. The concentration must ???be greater than or equal to the cutoff to be reported as positive. The concentration at which the screening test can detect an individual drug or metabolite varies. The absence of expected drug(s) and/or drug metabolite(s) may indicate non-compliance, inappropriate timing of specimen collection relative to drug administration, poor drug absorption, diluted/adulterated urine, or limitations of testing. For medical purposes only; not valid for forensic use. Interpretive questions should be directed to the laboratory medical directors. Result Comment: CUTO FF LEVEL: 25 NG/ML Cross-reactivity has been reported with dextromethorphan. Performed By: #### D RUG3 #### JIMENA Mark ([id number]) [facility] ([facility]) [address] [place] [address], [place] [address] Drug Screen, Urineon 024 Amphetamines Screen Ql (U) Negative Presumptive Negative [facility] Comment on above: CUTOFF LEVEL: 500 NG /ML Cross-reactivity has been reported with high concentrations of the following drugs: buproprion, chloroquine, chlorpromazine, ephedrine, mephentermine, fenfluramine, phentermine, phenylpropanolamine, pseudoephedrine, and propranolol. Barbiturates Screen Ql (U) Negative Presumptive Negative [facility] Comment on above: CUTOFF LEVEL: 200 NG /ML Benzodiazepines Ql (U) Negative Presu mptive Negative [facility] Comment on above: CUTOFF LEVEL: 200 NG /ML Benzoylecgonine Screen Ql (U) Negative Presumptive Negative [facility] Comment on above: CUTOFF LEVEL: 150 NG /ML Cannabinoids Screen Ql (U) Positive Abnormal Presumptive Negative [facility] Comment on above: CUTOFF LEVEL: 50 NG/ ML fentaNYL+Norfentanyl Screen Ql (U) Negative Presumptive Negative [facility] Comment on above: CUTOFF LEVEL: 5 NG/M L Interpretation and review of laboratory results Abnormal [facility] Methadone Screen Ql (U) Negative Pres umptive Negative [facility] Comment on above: CUTOFF LEVEL: 150 NG /ML The metabolite O-wmyvr-njgiadwvfnvvfs (LAAM) is not detected by this method in concentrations that would be found in the urine of patients on LAAM therapy. Opiates Screen Ql (U) Negative Presum ptive Negative [facility] Comment on above: CUTOFF LEVEL: 300 NG /ML The opiate screen does not detect fentanyl, meperidine, or tramadol. Oxycodone is not consistently detected (refer to Oxycodone Screen, Urine result). oxyCODONE+oxyMORphone Screen Ql (U) Negative Presumptive Negative [facility] Comment on above: CUTOFF LEVEL: 100 NG /ML This test will accurately detect both oxycodone and oxymorphone. Phencyclidine Ql (U) Negative Presump tive Negative [facility] Comment on above: CUTOFF LEVEL: 25 NG/ ML Cross-reactivity has been reported with dextromethorphan. Drug screen results are presumptive and should not be used to assess compliance with prescribed medication. Contact the performing [facility] laboratory to add-on definitive confirmatory testing if clinically indicated. Toxicology screening results are reported qualitatively. The concentration must be greater than or equal to the cutoff to be reported as positive. The concentration at which the screening test can detect an individual drug or metabolite varies. The absence of expected drug(s) and/or drug metabolite(s) may indicate non-compliance, inappropriate timing of specimen collection relative to drug administration, poor drug absorption, diluted/adulterated urine, or limitations of testing. For medical purposes only; not valid for forensic use. Interpretive questions should be directed to the laboratory medical directors. [facility] ECG 12-LEADon 07-20-2023 ECG 12-LEAD Ventricular Rate 68 Atrial Rate 67 P-R Interval 110 QRS Duration 126 Q-T Interval 419 QTC Calculation(Bazett) 446 P [place] 82 R [place] 77 T [place] 67 QRS Count 11 Q Onset 249 T Offset 459 QTC [place] 437 Diagnosis Sinus rhythm Borderline short [place] interval Nonspecific intraventricular conduction delay ST elev, probable normal early repol pattern Normal [facility] HCG.beta subunit Qnon 2023 Interpretation and review of laboratory results Normal [facility] Total HCG measuremen t is performed using the [employer] [place] Access Immunoassay which detects intact HCG and free beta HCG subunit. This test is not indicated for use as a tumor marker. HCG testing is performed using a different test methodology at [facility] than other [facility]. Direct result comparison should only be made within the same method. [facility] Human Chorionic Gonadotropin , Serum Quantitativeon 07-20-2023 HCG.beta subunit Qn NINF [facility] Lactateon 07-20-2023 Lactate [Moles/Vol] 1.4 mmol/L Normal 0.4-2.0 [facility] Comment on above: Order Comment: Venip uncture immediately after or during the administration of Metamizole may lead to falsely low results. Testing should be performed immediately prior to Metamizole dosing. Performed By: #### 2 524-7 #### JIMENA Mark ([id number]) [facility] ([facility]) [address] [place] [id number] Lactate [Moles/Vol] 1.4 mmol/L 0.4 - 2. 0 mmol/L [facility] Lactate [Moles/Vol] 2.2 mmol/L High 0.4-2.0 [facility] Comment on above: Order Comment: Venip uncture immediately after or during the administration of Metamizole may lead to falsely low results. Testing should be performed immediately prior to Metamizole dosing. Performed By: #### 2 524-7 #### JIMENA Mark ([id number]) [facility] ([facility]) [address] [place] [address] Lactate [Moles/Vol] 2.2 mmol/L High 0.4 - 2. 0 mmol/L [facility] Lactate [Moles/Vol]on 2023 Interpretation and review of laboratory results Normal [facility] Venipuncture immediately after or during the administration of Metamizole may lead to falsely low results. Testing should be performed immediately prior to Metamizole dosing. [facility] Interpretation and review of laboratory results Abnormal [facility] Venipuncture immediately after or during the administration of Metamizole may lead to falsely low results. Testing should be performed immediately prior to Metamizole dosing. [facility] Lipaseon 07-20-2023 Lipase [Catalytic activity/Vol] 10 U/L 9 - 82 U/L [facility] Lipase [Catalytic activity/V ol]on 07-20-2023 Interpretation and review of laboratory results Normal [facility] Venipuncture immediately after or during the administration of Metamizole may lead to falsely low results. Testing should be performed immediately prior to Metamizole dosing. [facility] Triacylglycerol lipaseon Lipase [Catalytic activity/Vol] 10 U/L Normal 9-82 [facility] Comment on above: Order Comment: Venip uncture immediately after or during the administration of Metamizole may lead to falsely low results. Testing should be performed immediately prior to Metamizole dosing. Performed By: #### 3 040-3 #### JIMENA Mark ([id number]) [facility] ([facility]) [address] [place] [address] Tropinin I.cardiac panel Hig h sensitivity methodon 07-20-2023 Interpretation and review of laboratory results Normal [facility] Less than 99th percentile of normal range cutoff- Female and children under 18 years old <14 ng/L; Male <21 ng/L: Negative Repeat testing should be performed if clinically indicated. Female and children under 18 years old 14-50 ng/L; Male 21-50 ng/L: Consistent with possible cardiac damage and possible increased clinical risk. Serial measurements may help to assess extent of myocardial damage. >50 ng/L: Consistent with cardiac damage, increased clinical risk and myocardial infarction. Serial measurements may help assess extent of myocardial damage. NOTE: Children less than 1 year old may have higher baseline troponin levels and results should be interpreted in conjunction with the overall clinical context. NOTE: Troponin I testing is performed using a different testing methodology at [facility] than at other [facility]. Direct result comparisons should only be made within the same method. [facility] Troponin I, High Sensitivity on 07-20-2023 Tropinin I.cardiac panel High sensitivity method ng/L 0 - 13 ng/L [facility] Troponin I.cardiac panelon 0 07-20-2023 Tropinin I.cardiac panel High sensitivity method <3 Normal 0-13 [facility] Comment on above: Order Comment: Venip uncture immediately after or during the administration of Metamizole may lead to falsely low results. Testing should be performed immediately prior to Metamizole dosing. Performed By: #### 2 524-7 #### JIMENA Mark ([id number]) [facility] ([facility]) [address] [place] [address] Urinalysis complete W Reflex Culture panel (U)on 07-20-2023 Appearance (U) Hazy Normal Clear [facility] Comment on above: Performed By: #### 5 8077-9 #### JIMENA Mark ([id number]) [facility] ([facility]) [address] [place] [address] Bilirubin (U) [Mass/Vol] Negative Normal NEGATIVE [facility] Comment on above: Performed By: #### 5 8077-9 #### JIMENA Mark ([id number]) [facility] ([facility]) [address] [place] [address] Color (U) Yellow Normal Straw, Yellow [facility] Comment on above: Performed By: #### 5 8077-9 #### JIMENA Mark ([id number]) [facility] ([facility]) [address] [place] [address] Epithelial cells.squamous Auto (Urine sed) [#/Area] 1-9 (SPARSE) Normal Reference range not established. [facility] Comment on above: Performed By: #### 5 8077-9 #### JIMENA Mark ([id number]) [facility] ([facility]) [address] [place] [address] Glucose Auto test strip (U) [Mass/Vol] Negative Normal NEGATIVE [facility] Comment on above: Performed By: #### 5 8077-9 #### JIMENA Mark ([id number]) [facility] ([facility]) [address] [place] [address] Ketones (U) [Mass/Vol] 80 (2+) Abnormal NEGATIVE Un [facility] Comment on above: Performed By: #### 5 8077-9 #### JIMENA Mark ([id number]) [facility] ([facility]) [address] [place] [address] Leukocyte esterase Auto test strip Ql (U) Negative Normal NEGATIVE [facility] Comment on above: Performed By: #### 5 8077-9 #### JIMENA Mark ([id number]) [facility] ([facility]) [address] [place] [address] Mucus Auto (Urine sed) [#/Area] 4+ /LPF Normal Reference range not established. [facility] Comment on above: Performed By: #### 5 8077-9 #### JIMENA Mark ([id number]) [facility] ([facility]) [address] [place] [address] Nitrite Auto test strip Ql (U) Negative Normal NEGATIVE [facility] Comment on above: Performed By: #### 5 8077-9 #### JIMENA Mark ([id number]) [facility] ([facility]) [address] [place] [address] pH (U) 9.0 [pH] Normal 5.0, 5.5, 6.0, 6.5, 7.0, 7.5, 8.0 [facility] Comment on above: Performed By: #### 5 8077-9 #### JIMENA Mark ([id number]) [facility] ([facility]) [address] [place] [address] Protein (U) [Mass/Vol] >=500 (3+) Normal NEGATIVE [facility] Comment on above: Performed By: #### 5 8077-9 #### JIMENA Mark ([id number]) [facility] ([facility]) [address] [place] [address] RBC (U) [#/Vol] Negative Normal NEGATIVE [facility] Comment on above: Performed By: #### 5 8077-9 #### JIMENA Mark ([id number]) [facility] ([facility]) [address] [place] [address] RBC Auto (Urine sed) [#/Area] 1-2 Normal NONE, 1-2, 3-5 [facility] Comment on above: Performed By: #### 5 8077-9 #### JIMENA Mark ([id number]) [facility] ([facility]) [address] [place] [address] Specific gravity (U) [Rel density] 1.025 Normal 1.005-1.035 [facility] Comment on above: Performed By: #### 5 8077-9 #### JIMENA Mark ([id number]) [facility] ([facility]) [address] [place] [address] Urobilinogen (U) [Mass/Vol] mg/dL Normal <2.0 [facility] Comment on above: Performed By: #### 5 8077-9 #### JIMENA Mark ([id number]) [facility] ([facility]) [address] [place] [address] WBC Auto (Urine sed) [#/Area] 1-5 Normal 1-5, NONE [facility] Comment on above: Performed By: #### 5 8077-9 #### JIMENA Mark ([id number]) [facility] ([facility]) [address] [place] [address]461 Yeast.budding Computer assisted (U) [#/Area] PRESENT Abnormal NONE [facility] Comment on above: Performed By: #### 5 8077-9 #### JIMENA Mark ([id number]) [facility] ([facility]) [address] [place] [address] Appearance (U) Hazy Abnormal Clear [facility] Bilirubin (U) [Mass/Vol] Negative NEGATIVE [facility] Color (U) Yellow Straw, Yellow [facility] Epithelial cells.squamous Auto (Urine sed) [#/Area] 1-9 (SPARSE) Reference range not established. /HPF [facility] Glucose Auto test strip (U) [Mass/Vol] Negative NEGATIVE mg/dL [facility] Interpretation and review of laboratory results Abnormal [facility] Ketones (U) [Mass/Vol] 80 (2+) Abnormal NEGAT JAMES mg/dL [facility] Leukocyte esterase Auto test strip Ql (U) Negative NEGATIVE [facility] Mucus Auto (Urine sed) [#/Area] 4+ Reference range not established. /LPF [facility] Nitrite Auto test strip Ql (U) Negative NEGATIVE [facility] pH (U) 9.0 [pH] Abnormal 5.0, 5.5, 6.0, 6.5, 7.0, 7.5, 8.0 [facility] Protein (U) [Mass/Vol] >=500 (3+) Abnormal NEGAT JAMES mg/dL [facility] RBC (U) [#/Vol] [facility] Auto (Urine sed) [#/Area] 1-2 NONE, 1-2, 3-5 /HPF [facility] Specific gravity (U) [Rel density] 1.025 1.005 - 1.035 [facility] Urobilinogen (U) [Mass/Vol] mg/dL NINF - 2.0 mg/dL [facility] WBC Auto (Urine sed) [#/Area] 1-5 1-5, NONE /HPF [facility] Yeast.budding Computer assisted (U) [#/Area] PRESENT Abnormal NONE /HPF [facility] XR CHEST 1 VIEWon 07-20-2023 XR CHEST 1 VIEW Interpreted By: Salina Stanton, STUDY: XR CHEST 1 VIEW; 07/20/2023 4:05 pm INDICATION: Signs/Symptoms:cp. COMPARISON: None. ACCESSION NUMBER(S): [id number] ORDERING CLINICIAN: ABIODUN OCHOA FINDINGS: Heart is normal in size. There is no consolidation or pleural fluid. The mediastinum and bones are unremarkable. There are bilateral nipple shadows. COMPARISON OF FINDING: IMPRESSION: No acute cardiopulmonary disease. MACRO: none Signed by: Salina Stanton 07/20/2023 4:17 PM Dictation workstation: [id number] [place] [address] XR Chest Single viewon 07-19 No acute cardiopulmonary disease. MACRO: none Signed by: Salina Stanton 07/20/2023 4:17 PM Dictation workstation: [employer] MMODAL Interpreted By: Salina Stanton, STUDY: XR CHEST 1 VIEW; 07/20/2023 4:05 pm INDICATION: Signs/Symptoms:cp. COMPARISON: None. ACCESSION NUMBER(S): [id number] ORDERING CLINICIAN: ABIODUN OCHOA FINDINGS: Heart is normal in size. There is no consolidation or pleural fluid. The mediastinum and bones are unremarkable. There are bilateral nipple shadows. COMPARISON OF FINDING: [facility] Salina Stanton MD - 07/20/2023 Interpreted By: Salina Stanton, STUDY: XR CHEST 1 VIEW; 07/20/2023 4:05 pm INDICATION: Signs/Symptoms:cp. COMPARISON: None. ACCESSION NUMBER(S): [id number] ORDERING CLINICIAN: ABIODUN OCHOA FINDINGS: Heart is normal in size. There is no consolidation or pleural fluid. The mediastinum and bones are unremarkable. There are bilateral nipple shadows. COMPARISON OF FINDING: IMPRESSION: No acute cardiopulmonary disease. MACRO: none Signed by: Salina Stanton 07/20/2023 4:17 PM Dictation workstation: [employer] [facility] Work Phone: Radiology Study observation (narrative) [facility] Work Phone: XR Chest Single viewOrdered By: Salina Stanton on 07-20-2023 [facility] Work Phone: Coding Summary.on 01-21-2021 Coding Summary. CD:[id number] G h0bWw+PGhlYWQ+MP6BWEI mL99zgKOshL8AX2uQIC6D YPCHFUIAVB7INR1yqVR2S RqpW1ExjwTe KnfuzBHjSQ50RZo3WVE5f CmgTWntuW4mtLChF7a4Ha GtEV35tD88XEvlKYNrNlU 3LjZpbjsgbWFy B9toAhPdfESwKfo+PHRhY mxlIHdpZHRoPScxMDAlJy PneYlnBM1uFh5zMEXvAFK vbGxhcHNlOiBj v5uzNSYbAWsqIL8ecQwcU 7FhvTY7XGXai1l5Jh31rS I+KMJxRKQ4vAuoNPjbi29 8TcWil6unVGI8 wUZdQEmtFVE6T45ds9G9S VSsEUMzOTB7tQT3uC2uqS xykaevL0KqhNHrDkK2LMM 0aMWkzB5uaEam wvkheB3yMlk+I84VSW5MQ BYDLP9TSih6L3NpQrcatO I+XX50JPBzDI74lMOijCZ ae0vbzQb9IsKi ALCsGUK9tAggSIwti8SlJ FFyA16kwWXrm1Z2NCPjsT nvnOUuFyMhjQG2hH7oFZo ucqfpd8mcsnrx Tkpsn6znwy34sW92Y06yG CcuGFRzUIY3OKZoLLCjyQ iamo6otN0iQi6+UOfep2x gv9flcEa7RqVd DBImouYvlXdbWLQ3a6GtY m79R7VblBidr3IiUvg8hg 72gJJdz1K6xYF2SYnjVJN bhL3jCSoyIgR2 SKNkYnArbU38oJJoUGslX w3pqEbajEpjBB8aAKDsfz zqHJKogY8pXEQjsGPckZs bYB8jKNPxdrkr m109UoRmHTG4BZHvqGMlF 9ZuaQ6uDyUkSLHbIGEhK1 MeuYMvINznU871ZFasNoT 4BBCoddMwB0Ga GAIpjTbeRfR4x3Q8Pz1Cx 7YzpyfmMTO1LJwgREGxMr A4UgSjMsT1C8JnCms5JQF dbZxkRY4iR0Ou TNGwgamlldojkDV8MTYbG YLnzW97mWNzSSrqEd0yd8 I3z667YIAbUTWuhP28Vi4 udDogMTBwdCBU mM0afyvnx9aeawrsUqBwC XXxXVo0DVh4EVZghWipWo AoLRE4DvQ5ZLJ4lUMmxF7 ndNnoqcibhS9l Oyc+R05kwG8tOEG1LNN4e wvoIVWvyoSpOJ49MK22Y6 RyPjwvdGFibGU+PGRpdiB tuJhoZS5kItZi k3buo1YrPFbbP0GjNJKpR ZcgMow9YCOxYBA0zLS4yB 2mVJLqLEiua2J3aHT1W9R xlpNuci6sw6db NZWdXVssU81peZCfz4C8W QJneFP6DXYteLwyJpCvxB 93Oyc+LJTjtVbsp1GeJyy ez3jcl7mszIa6 KeFhVXPjtuYhoXjmAST8r 4UpFt55O56pSIpcIDDeTJ ByACBhSXTszNzubj9ecR0 wIi8+PGNvbCB3 qFV9pO8mVHYzLgH1BBekO 867DuPyuCNbIdxre0zet4 xouZg1BbDiMGEebbZlmWu gDER2l1NdWc11 O18nFFcySTCnOTKsDFFnF QZzxExisv8lyM5mTe5+PC 5ec8mmsj05bP46bWN+PHR yTKU6qLuoYYxg YEByjM1jNSxfAlU4APBzE cZimN75mAOkSPrhTl4vpQ aamVivXR1xZTUyxnxrg67 0ZmHqy8tmUYVg hCPdWLqvSZV3U64ws0Q1Y XGnFVHlBEG0pLJ7zU2etJ lnbjogbGVmdDsgdmVydGl fHTgsNNstV451 IHRvcDsnPlBhdGllbnQgT kFzZQz1S0AzSma6GBGsdU zaYC8azNVzGYgyGo0rvDa zkGbyUZ3fOGFr oraph291QoGay8vaQWFyx DFyDTraZCG5M06lr9A6PV YlEJVgWYH6bVT4rO8zjUj nbjogbGVmdDsg adPchMazSBorIMhmT103V HRvcDsnPkJpcnRoIERhdG O2OC54PQ94cAPcl0G8iGJ 8L9UkUBJunlqs oclbuGF7DDOzVDAjdF00Y k2xcVphEf6rDDJxZTG0NZ DhoMVyG8CbdY4vNeUeBCD yHSPdD3OndJFy QGtvQ042SAqjGdL6XDXnf lTsO8RsQBZfqGexReO9n1 S9Xg8UL0D5ZW49UF89dZY vx6C4lOI7O2Ie EIUryxtqepkgeMH5VOHdN QFoyU57Ix4zmDbrKi8nEO FyHWN8CNXzzUUyQ0DrwL3 yOiAjMDAwMDAw D9GruQVuKLeoZ316LQrcL xF6ETNfswRvV5LvPRFbiU idZkI6r7W2Rw6JWPz9BQ5 9QI24vUBdx1J2 lPH4T3DeWVBebnjmsgpeh YU6OAFhCGIqxA07Qo6ruB yxQs0nBWLpAPJ5VCZxiNT eJ5GkxC8nNyNt SBOxPHKvS7KpvKVcYYrrB 967JLzeSoO4NVHzeuBpR8 RhLUZknMirQxB8p7R6Qn5 NOBLiVX70HPP6 xDG5EU03JX71T5GhJghwn GFibGU+PHRhYmxlIHdpZH RoPScxMDAlJyBzdHlsZT0 bXp9zCKIaWVJx eJsqsNEwIyFlo0wiUCVdJ EwzFW8hkXggO2BxgOI6WL Oig2a2Jm35G76qN7GwiNH +OHBckUJ5nLP6 bV5uNkMrDxF0MIguK621S qUfpKZwEcdwk3qss5hleK t5IzK4GGKxqmVvrAxpTUH 5j7KhGz33B76l IHdpZHRoPSIxNSUiIHZhb Jvfcx6vuB0iMz8+PGNvbC G8xFI6aL7qLkMfJuY0AQf lR821HbPvkOYm Qmrkt5frc6nsuXf1NiOhS LOduiIufPraSXA2v3SsIq 69U5QezFmdq7XrEjh4eh1 9jYZqs4W5hEH3 D3CbGHNvlhcdvSGpiZrqD W6iZDOxmlexODLzaH4xER FxK6h8MrJzCcN6NOgtF3K zrpF8UTLffXOd WNuiNHX8C79ps8K5BUUqX YCiJHW2hGB3cK5nhUyrvy ogbGVmdDsgdmVydGljYWw mDGjaO568SVWn bVskFXRhnF0jZWDlcDPhf VemAM1jJRRgmrroYwMIVK FGRVIsIEVSSUNBIExZTk4 2T5FcLkh1UWIe eQwiLQ0oeLUpSQgpQl6ka DhhrXllAY5qUJWnmvnyMP MxgO0oAZLlgKUwpZmhFZ3 eSQEbfspbg022 PkUyOVY8WAEsuOXmX3Jtl W9wVlUdLIEuRFVeP7GzwO FpBTxyT432GRdzUzP5OFF datQfX4NjHPPm xOqwFyF5e3P0Il9dWw0kS t3aBBt9TK17PK35rBRjj5 M8dMD2B5UdLCScujcjixp hdGA7IUAaPRFp oT21bVGhTWyyYo3vg0G1z 716LMVoNRVprN00Kd9jfD sfWZEkwSZChB7cdpifw8y vcjogIzAwMDAw YNc8ZOg6PJQiiMvbZcWpK SB4DpY8GXQ3gYHpkV3pdT sywlhueU1sYgb+MjYgWWV hlxW1H3WjPqf5 ITMsoAkgNF9twVEkSHpaB h8eiAdpfHwcXQ5mPBIbhr kbPSFhfJ2tNUEvcCBlgSi tIN1bPDEzpawl p788FnUnBCA6ECFquYSzZ 1BvbY1pVaUqREKiKXIvD4 YemBNzWAxxU730VOrbAqT 0EPJbigYuE4Gr JOFyoHgeZxH2f3R7Fg3SH U3pxXX6J7IfDfl5DNXebH enPN9fpXAyXRuqXp6kdQc hgLwjAK6pEHLa gtqwISFoaM4uHIOdjTTeu DxeAU3nNWZeraqjo720Zn StHLD8XZYquUSmN3EtfI7 yOiAjMDAwMDAw T2HgiNIwYJpvM572DSehC aI8JHVeemWuH2TaXSFgxZ sjTeR0c4W2Ie1IpRDwQNC iNX06EW32ER45 J1PnMztthDOvuVK+PHRhY mxlIHdpZHRoPScxMDAlJy NulJnpTK5oWq2cSSRoCYT vbGxhcHNlOiBj z9kyFEWnRYflQP3ggDgjA 9IafDY4ZGEyw8k4Ml44T8 3oE3SmuQE+PERitBJ7cHZ 6fW0sKnGgIyH0 JRtjB284WaCerLHzQcuvi 8avb3uszQg4CrGhROLugr EwdWstLDV7z5GwXd87L90 sIHdpZHRoPSIy APDzKUNxpNfukd3siD9gM i8+TAPubGM1gPF8mW5iWi KyUrT9BEirD851ZfAlbIL wFobcO48zH1Ze dXA+DZXaGfu0UPWosHuyE I1trZBgSIxsKq2oSAP8Tb JoIzOiSLbuX6KtGJOimxk ypqlrtWM2GVQr NTAlgN37Xx4wvYaxOo0xZ OCkZLH6NRUzjDObE0NrgA 7uHzCnKIYtAJDbK3QyqKX wLCvqU582FMqe XuP1DSYazhLcR3LoNQLny CyuEvE4d6H8Uo3YlYkonO VbOK9tCvAvTTr4R0BwUjz 1MVBziJvcEJ2a qEGyMXpbFf3owXbsbYthA Y8vRYWlgabhz101UyBom4 bcLBLsoREcQPdxTMG7N34 yg8L9NUUfRNJt ALX6cTX6eS4eaLvghaiwn GVmdDsgdmVydGljYWwtYW ciV331DWAjoHbcQnSUImy 4Z3FuDqc8RHBn oQyoOX0xwBEvBSasTj6ah YaceBtxWG2gDUGoqdgjj9 75OtUhz2kuLUSopAMrTLk kWWE3E27yq5A7 VBSxJROeEEK0sGR4zJ9ly GlnbjogbGVmdDsgdmVydG smBKdhKQuzH469ROXoaJa iUr0XZca8V2Yn Iuq1ZHAkhEzbRQ1xyERkZ XniWn9wrDbtrGdlEH5mYD Iqbvogg047UaUow6lgRYI wcHQgVGltZXM7 K32oe4M4JUAfYYOwUVG9l RL6cL4zvIzcmscycCEjxL sxecSikUhcCRvoYWmyG81 6IHRvcDsnPlBh eWVyOjwvdGQ+TA96rw36N 4FyGpeaIid2GDAiILY4nQ G0gF3zYZWrZFxss9Y9aEP 9F0NtgjNfnk5b b2xs (more content not included)... [facility] Coding Summary. [id number] G h0bWw+PGhlYWQ+JI2IRQE xB57fbRZhwD9HU9sRZU6E MZRPJOAOAB9GTH1tlHL4D EvpI1IgcjOh MxooqCGxHU95BOp8ZWY0c TbrCYfugA6ckAIiR6d2Dq EeMM13bZ43LDcsSVMyNtE 3LjZpbjsgbWFy R9qoBaXuuPUyTba+PHRhY mxlIHdpZHRoPScxMDAlJy ZcmGpiWO7kOu7lTITeJLR vbGxhcHNlOiBj z7elDRQeNQelXU1kxSwjI 6PqtOU9ZZWon2j3Jz01pL I+WVQhGCJ5oYnxMPepc31 5GsAwe0ptXJG0 cZBlFXpfUYZ9T75ae7G1G AEzDQFgIRM0mPK7xH8psK udnwnqS0UviOSjHlZ6XTG 8kIHadX5kyNso zhbceL3aRzh+H03OXW8YU LPDPS5PYhv4K9NfStkxzM I+IN12TCKxPW29oPSrtPI by3anvZf6GiYv VIOxRIA7dSiaWPhek3ZlJ GWeJ23jbHIho6X5UTXvvR iauOErCmLstRR6mK2qHId qfbxam6vutzme Pdgki2xlso37rX62F82oK OhsLOFbODD1HYUsHFNxeK afjb7kuS9bCm0+OHyud6l lt3bpuPo3ZaKg CNUyxrOhvYtxLIU7d9CkH u21N0SlzLiwg1XeLwt8qy 64jEKcw0J7kOR8QAekGOB woL4uICzuKuZ2 FJVoWyMiiI07nWRbCVnaL o8gkXubuQtlIA7gABZoka sjCKYqqP5uMQHwbXGccYo yXH4rQPZvragq y687DnQlIAV2FRImsCKdJ 8FonN9aUvSvNKHvCASpE3 DqwECqMAufR812MDgiDbF 7BLBpeoWvT1Hj ZZWctYvlUxC9o8C9Ro4Fs 8PernhqFHE0AOdzHPXuTj M2FyCkDzN0I8ZgNfk4FOK ptLtxWX7tZ2Gp JAOaovovxvaddES6FAMzC NFivG04nLAnHGufTe5dr7 M2g783UXSrPSEdfT02Rk0 udDogMTBwdCBU qP5zjhheg4vrdulrIhZgS HEfEMf1EDt1LXYjwWhyUw KeDVC8LaW3MVI7eGMuxC6 nxEsygxyxtT4m Oyc+J93apZ3wZME2YUO1a tyqXKBzagAjUL04WD41Q3 RyPjwvdGFibGU+PGRpdiB iuJnfZG6jFnMb h2ype7UxDHdbF6RqKPEpK QyzIso9BDUfBAG5qNU0wX 9tHCBhZHwsb5V6kSR3Q1B hajAedj8yo7za LOJsEVowL91blLRdi1P5C IHrcND7LCHkoPapCnZmjO 93Oyc+MHSmeOpxz7RsCyd xm5pca8myqQu2 SbDpLPCywfCqeGhvJVT4f 5ThDw13R18lQRqpQBEfZW HtTCMaVGZqtAsijc8orD4 wIi8+PGNvbCB3 eSR1pG8aYCBxZjE6QAuyE 979EcFmjFRoWbsyz1kdq2 nrmCl4WeVeLHZytkEzpOi pCXH1l6OtQc94 V09xPPnuGKAzDASxCFXzG BWklHtytd8saE4aCh5+PC 2wr0xtax74yK39wTZ+PHR rYYU0zPdgVEgj SKBmbY1tBRuqWeG7QMGeN hIlcB05bXJoLJhiTr5maQ udkRzdTT2fPCYbeayxy39 5IsPjj2kuVLPa fLMyPHdvNOH1G02jo2K4O KSuSGNsAUC1vLM2pW1igX lnbjogbGVmdDsgdmVydGl fZOrvYSygL600 IHRvcDsnPlBhdGllbnQgT oXmQPw3P1WuFjr9IZItjQ lhKJ1dmHSmTLuhSi5qtKy lpVlrAM2yGLRa tbxgw881XxRuh9riPRJqu AXjKTdvRUM9T75sh7R5RX EjLTZiVVX7mNM3pG3zrAg nbjogbGVmdDsg ebGpvSpbRHckVLjaC364X HRvcDsnPkJpcnRoIERhdG H4AM15XY35dEAts2P7iTE 6P7FdDMEkdjkq ldnbnXM3CNYaAWZvoJ84R d5lgPhsWg6lSOUqGSA3AE YclJOzP5NtqP3yCcSdOUP vVSEvJ2RboFYy IGgoB160HByyDvU2HEJbb mWuY4XlHHWbkVrtXsP5e7 M9Lr7RQ7I7JO44OA82qKH xx2U1xCV7L6Gx BZVatvjfxzgjeDB7GKCvP FZxnA99Rc5fzOqpYb4wJN FsEVE7WKDloMPgB3OpgM7 yOiAjMDAwMDAw V5AnwSLgUKpdO250DRljE fP6QANjmiAbM6QtQTKgbK wtFuR3o4M0Gz5TKGp6JZ9 2ZX51dJFnu5O5 dED0T9DxKIVtwaczpzley TB7BCEjCHAstL28Ga3opK kyCl2nAODxHER5DFQbuBD oY8GzqJ1sRsWr APZoIUHmU2KulQWbWYdwD 246NDxeFoW2PPHfraQaZ4 LzMDRaeSlqToZ3r2B2Hm8 PKRWwPQ14ZBB2 rXG8GR85JU05L7SjAbscg GFibGU+PHRhYmxlIHdpZH RoPScxMDAlJyBzdHlsZT0 wFx4rVUAmOZLq qIadwMJjKoAvp2hlWCGjE QqyUK3twAebU6OkxNW5OA Lwh7f1Cq32A64xH8OrhCY +FMCtsLS0fPI5 aH7dIsDoEjV5JAnbX761L zQqjLRuEpojk1uuu5hdfV q8BaJ0MZBwynXjnMsbPRU 3d7CmFm14Y82n IHdpZHRoPSIxNSUiIHZhb Whlom6dbN5iAd0+PGNvbC W3vZS9iA8bKxQmCfH7SHc iU367XrWplTGk Xvlct5ewq6vmoPn6WmAoX JQsbkBmmFdoSCQ1t3GcOr 32V2DjjPspy4VjPpv5yh6 5vHLgk2J9qHZ7 L9RhPWDlcxsanEXfaVxuB T3gRZSycxeeTBKnaF8yQU QgO3x9WxTbYaN0WBogQ3A bqzV0UEPxhXJq YOxoRGP0K68ae4U0KJEzG TQkRHD0nSK9mQ3qcOddtx ogbGVmdDsgdmVydGljYWw nBBwlD637FDSw vKuvFFXzyV4hVNJcoKKdc YuoQE5rKIApyhkhDdKAGP FGRVIsIEVSSUNBIExZTk4 4M4OyOwy4PHBx zHixMC3vbVMzJRpfWa8vj GqieCazIG3lNVRkgvruFQ SbhH6qEKApqRWbiIceTH3 pQSBylnfuo599 ZcFcZPO2YJWyeYRxH1Vys I9vGcSzUWLcVHKjN6TzfJ NoKEbjU048VWnlVsO9ITP kgqCcN1GcJVKe oEkgCvI0c3O4Vv9dKn1fS q1oRNo0YH57TJ97uFSbr8 M6iUY1B9BeNEOqtbkyqnz klQQ9YDRqQWIo uX93cOLcDXwgTx1jr5G4v 269PMNeKRMsrH09Oe0mhH qmGEJtpVFYqS3bpstcg8p vcjogIzAwMDAw HKd5CFx1LPZklUizPpYzG JG4PiS0YHE1gEBfvH0osD dwnwoxsE9mHlk+MjYgWWV awkX4O0PtYbz4 YNEqjGipFO4acHCcCRpwR r0zmTibpCwhJG7bXPCjqx wkHZPwtT1nRBRrqMFppOb sKQ6fBLXntteb s870VuQnMEV2IGEeqVPiM 3EwmH3lEyWuYLDkWKBbZ0 SppBEjSEwpA128QFziUuV 1ATIshzGkE6Mp PUNfmPrbWyD6m6H8Ga4QC F8quJQ1R5NoMki4HQImxX cxYA1zpAWdGTjrXv5wjGc exHejJM7oPIXl mbwhLUPpkN6sJXRweJBjw MhvTC0yAJFypnvkj995Fg StNDB9KDHhyIGsE1XqeM2 yOiAjMDAwMDAw Q4PhlMElVBrzO976MXhoF rD7RKBdxdGoK4GsOQJmmZ lkCfF9z0M4Qh2AeWBxTFB mQO19SU74XL73 P3RwSoqsjZJweEW+PHRhY mxlIHdpZHRoPScxMDAlJy QuuPmtJZ2cOk0aKJXnDWQ vbGxhcHNlOiBj f9boUKTkOOraCD3mlMdpG 4ElcWH4CDZkk6o1Tn59E3 1yP6YlpWD+PCRfaKJ4nJD 8uP1wUxFnZoC6 OYcyV745ZpGqzLUuTvyxp 1jeb5ebmAv8HwWkYHZofz GxgWzwWPC6j5CwNk86P83 sIHdpZHRoPSIy ZAOxTSCbyLhpsm6hxV2tD i8+QMUteIZ5wCB7uH6cYb FuPcJ2WOivA254OkYiaCW gDxweM99eU7Rq dXA+ECPzAyg4NVDboUqmM J8dtCSpNMbjIi8mOQR5Zi VuVbCeCMiwQ0YqQTAefbx isvlgpYJ8BOTz ZMCklG15Xd4nbNbvLl7uS ISfYCJ2UJJtcIJkM5BnfR 4xGqRpVERcUZExW4AhiLE wENvnK869ZXtf RsJ5REIwktApQ5CkENPer BliFeB3w0E0Bg4FvPmpdG EyGN8nCnFjZMf5Y9JbHhu 7KAAqmSfrCM7x hZQgIPpbZg7drAifsFurL V1qADGwdfrte903TzRqk4 teDAYywRVaZXvqNHC0C41 sd4Y4PJXoOQMr BXJ7zHV6bB7wqKfnrdppn GVmdDsgdmVydGljYWwtYW nbA701EORcbSjfKoIYDfq 4Q3CpKiu2NBIl iUmxQI2rtPImNRezMr8mn VpejHwoLA4vIQKcktggm6 31QzYhg1skIZIiyXWnLAh jEZC0F98xs8L0 WTOgGEWbIGC3yDI2qN8ak GlnbjogbGVmdDsgdmVydG yhIPjbLPxpP780DNPgsBe kRt4BDqf6Q6Fw Mal9YHPvfGkxMM6ojVApP TiqAs1nzQgqzYkaGA8wYP Rizgyfn446PsIev0neXZZ wcHQgVGltZXM7 P07jz8O7CLIsLCJkFLK4x KH6cO6iqFiiivmrlJQgxZ zqtaJjbQkeOEgkPSsoT27 6IHRvcDsnPlBh eWVyOjwvdGQ+PY43fg01G 3FgNcylZhr6RZWjRBP4yZ Y1hU2hOURzPThlv4P3jID 7P9LictXeoe6g b2xs (more content not included)... Normal [facility] XR HYSTEROSALPINGOGRAMon XR HYSTEROSALPINGOGRAM * * [...] nondilated tubes. No spillage. IMPRESSION: Please see CLINICAL ASSISTANT report for assessment of real-time findings. Information Broker: [email or web address] Transcribe Date/Time: Jan 20 2021 1:37P Dictated by : DAYANNA LEROY MD This examination was interpreted and the report reviewed and electronically signed by: DAYANNA LEROY MD on Jan 20 2021 1:45PM EST [id number] N Normal [facility] Rubella IgGon 01-05-2021 Rubella virus IgG Qn (S) 20.80 [IU]/mL Invalid Interpretation Code Immune >0.99 [facility] Comment on above: Result Comment: Non- immune <0.90 Equivocal 0.90 - 0.99 Immune >0.99 Performed at: [facility] [address] [place], [place] [id number] PhD Randa Ochoa Performed By: #### 5 [id number] #### [facility] [address] [place] [address] Varic IgGon 01-05-2021 VZV IgG IA Qn (S) 207 Invalid Interpretation Code Immune >165 [facility] Comment on above: Result Comment: Nega tive <135 Equivocal 135 - 165 Positive >165 A positive result generally indicates exposure to the pathogen or administration of specific immunoglobulins, but it is not indication of active infection or stage of disease. Performed at: [facility] [address] [place], [place] [id number] PhD Randa Ochoa Performed By: #### 5 [id number] #### [facility] [address] [place] [address] Consent for Treatmenton Consent for Treatment [id number] .00CD:127 Normal [facility] Consent for Treatment [id number] .[id number]:127 Normal [facility] Free T4on 01-03-2021 Free T4 [Mass/Vol] 0.75 ng/dL Normal 0.58-1.64 [facility] Comment on above: Performed By: #### 2 [id number] #### [facility] [address] [place] [address] [id number] 01-03-2021 HbA1c (Bld) [Mass fraction] 5.4 % Normal <=5.9 [facility] Comment on above: Performed By: #### 5 [id number] #### [facility] [address] [place] [address] Physician Orderon 01-03-2021 Physician Order [id number]# 1.00CD:127 Normal [facility] Physician Order [id number]# 1.00CD:127 Normal [facility] Prolactinon 01-03-2021 Prolactin [Mass/Vol] 45.14 ng/mL High 3.34-26.72 [facility] Comment on above: Performed By: #### 5 [id number] #### [facility] [address] [place] [address] TSHon 01-03-2021 TSH Qn 2.09 m[IU]/L Normal 0.34-5.60 [facility] Comment on above: Performed By: #### 2 [id number] #### [facility] [address] [place] [address] Vitamin D 25 Hydroxyon 01-03 25-hydroxyvitamin D3 [Mass/Vol] 58.1 ng/mL Normal 30.0-100.0 [facility] Comment on above: Result Comment: Vit sarabia D deficiency has been defined as a level of serum 25-OH vitamin D less than 20 ng/mL (1,2) by the [place] [employer] and an Endocrine Society practice guideline. The Endocrine Society further defined vitamin D insufficiency as a level between 21 and 29 ng/mL (2). 1. IOM ([place] [employer]). 2010. Dietary reference intakes for calcium and D. [place]: The National Academies Press. 2. Carola MF, Pita NC, Christin-Calvin HERNANDES, et al. Evaluation, treatment, and prevention of vitamin D deficiency: an Endocrine Society clinical practice guideline. JCEM. 2010; 96 (7):1911-30. Performed By: #### 5 [id number], [id number] #### [facility] [address] [place] [address] Coding Summary.on 11-21-2020 Coding Summary. CD:[id number] G h0bWw+PGhlYWQ+BO2YTWZ tR05arSJxzK5QM4xEUY4Q BRPNVVKOXO6REX8cqCX8D NblW5AwfzWz AlogpUTsZS78JYo2TPW8d ObyDOzsmP6khOUpK8j7Ee ZwDY53uO77WHooAUCzVyK 3LjZpbjsgbWFy Q5joOeIfzGRyWwf+PHRhY mxlIHdpZHRoPScxMDAlJy NbqNuhRV4qPp6dGMZxCDV vbGxhcHNlOiBj b2inOSUpTTlxOA0riPrqZ 0GaxKC1TWJhh6v4Rc83mV I+MTDpVHW0jIkkAYbyh02 5WjRhu1mjTYX6 fKOiWYtfIVP9L01jc6H0L AOnCMXpSVK1rRV9nP6exS cbgcxqS2PghHChBnB5NWJ 8tFWurA0chPrh efemzR4lMdx+B98JDM6ZX RLMWI0EQxu9S1RtTlfydQ I+TP14LTRvBE33kNTwmLD bi4ueuWu0KqIq REQfTKR0iNknXDcka8BiH FRuC23fjKEev9W1OKKhuY kcrXQvCoTcvTC4vW9qGKo rumtwj9dzqzia Ryojr5aniz31pW59W92yO GzvMTNpBMZ6FOSxUHQoaT nmxi1pgG0aZx8+DMvtx6i gw8legXg5QoNz RQZjgjDjeQwcXZX6o9JoH z56Y8XpqNrqc5UnArc3yp 19pMRjm3L6uYQ0ADdfLBA bsU3nAYclAeO8 EPReMbPaaN71fVJkGExyH s9hwLlbiEweVR8dJPNkpe npHRZcoS8pNRJfqAMehVr sBS1bZWFdyyby h322ZoEfYKM7ZXKjyRXyM 2HfsN3qLcIsUNUbGNJaN4 CauGGaSDycZ874TSikWuF 8CZJjuhTqZ2Ev JKJdcElyNvA2r3D8Ii5Lq 8JwduvgKFV8NOlsUMN9En A4XaBoKeL2Q7GeQku7SFS qeWmtZW1eA6Kg QEOtqyliqzrrrQM4RMJkG WValJ94fAAlQErtUs8um5 T9s516LFMjSNKerA01Az0 udDogMTBwdCBU lZ3qhldxu5uhhwthSrRzC LWjJGh4MXt2RHGdiQaxGk MeFJE5BqA5GMC4xKVllW7 tnOxxambheT9i Oyc+C87zdI8jKRV7EXR3f ioyNAHstxQbJQ23VC69L7 RyPjwvdGFibGU+PGRpdiB odCpkOH6qJkRu j4pzt9RaZMnwF4FpAFIcV BhiIol5ZZPeJHT4xZC5lD 0yCGXdQKjej0D2kJO1X6M vmyKbip3lb2sf VFJiHVhdP25iuRKhn2M9H FDjhDM8OJLcwEcfPnXufT 93Oyc+SXGoqXhmi8MkCvc sl5oyz8xgeVh6 BcZjJPZancYrpEhsWKG8a 6ZoLa09U72vCCclFGEjCV SrEUGcKKAndDjath9vsB8 wIi8+PGNvbCB3 pQJ5gX0zNLAmXwA3HPeeE 089QmHsnSTrFxnoa2mqc0 ksiFj0KjMaTXKqmzLyrKk lUIY2z9WfCz73 S59xUGscCHFjJAVaTEImN CKjjIsuxg3dzC7fQl1+PC 0hb3nhhw04oW60cGF+PHR jSPT7rNsxEDrc NEQybL5uRLewKyF8ZTLtD xDbpA93nIXxETobOy1llZ qbsKojXV6nEBSqftgdy95 5CwJmb0hjHEQi cIExHFrvQPD1M69gq9E3K BMgBENlYQX8cBL1hC0hkH lnbjogbGVmdDsgdmVydGl zEMwnKCzaT752 IHRvcDsnPlBhdGllbnQgT dAvEGg4I0BeXqh6OVOjzC edNV6ttMJlPCshNk7ajCk sdAtdET6vVWTt zmcjy593FtLyn3qrBVRpu HQwWNtbVFP4T88tp4E5FO FmQWOlYYM3mCS3eB3zoYn nbjogbGVmdDsg niVsdYbhVEqaQQluB936T HRvcDsnPkJpcnRoIERhdG B1TH29ZO38nPVlt5D1iCY 6O4DhFXYsuhpn efpihLI4ATSgLGLktF94O q7rfHhmMz4rSXGhYWR5TX UfcDXgK1CmqI0nNvRkZMH hKBNvN5TpgXJk OBanC731NFgqKkN8INGzx pLxZ9WdLKHoxHesZsI3i0 C3Do7HA1A2IM95TZ43rKW ga5J4tMC7L7Bz UKGrpmnpvrupiUZ3YLJpU KBsvX88Aw2qwRslTi3aJA KvMAE6BDXmsIDbY0XuxE4 yOiAjMDAwMDAw Z9DnvMQzTLxoB387NReuJ yJ6HEAuokZeW6VxQXNwmX wgOwK1h8R5On7YASp5JW0 7FX44vXHhw1M5 fDJ0G3AzFPTjvnvobhuqh XD7JNOdCDUfoV24By8vaL jeVa8pSQXsOTZ6UKUopHE eH8EvqF5jUxRj GCMwHPGmF1MwaKQdDZzmH 494SVtzOjJ8EMUnhsLbQ8 WdXLChrGmmVvL6u5M6Gn6 OREXrFD85ARF5 oXC7AD36BV84J0OtZuign GFibGU+PHRhYmxlIHdpZH RoPScxMDAlJyBzdHlsZT0 jFi0hRRWfRIUv rTxgkDRdMcAhc5vvVISdT HquBG5gxKivX8SsnNC1RB Lsb0i7Ss81I13lP0XtqGI +NZZziPP9qGL1 rH0iNdLsRxT9QUbvQ818U cLxmZNlMdnrn5zow0ntjQ f2NeO9HVCrplBkaXejLIK 2m5IlOn03Q66e IHdpZHRoPSIxNSUiIHZhb Lfyfv6gtX0aLg3+PGNvbC R9aZH9zW3qCzWjApD4PBu pD691EtZopBQc Wnluv4gvs1hyqWe3RcBbU JErtlBelKrcLYC3n4CyCu 99D8PccPgwh6BwHvz6xs1 2tRLjr9M6wGC9 A8ZsCHXmgwsszYNixZyrD U2hBOTpgkitUPStnY1sWN TnQ1i9ExVrDmA2HKbmJ9G tuxQ1PPZlhWVs BAukRHM8S04cj0L9YJNpG TGqUCF3mOJ6mE4quOfbot ogbGVmdDsgdmVydGljYWw kZLpoF782MADg yGtiIEYwbK8bOHNetCNfx QgxRG8qTWSgskjgZfEAGW FGRVIsIEVSSUNBIExZTk4 8N0KjTkb4IGXt zLiyUV8hdKHrHNrxCh5oi CkldKsgIH5iEGMyjznhBY LjyA7jBGVqfVLymTfxYP0 bTIGzekjgi315 DrGlTGM1RXZkuZEuE2Bab A4lKiUzROGgDWGwZ6RftQ HdLLkvX212IUmaDcS3OST ebuEmF5ReDINx oLklSpR2b1L7Iu9pJp7kK h9hXFr9VL76LY73mYAwm0 I8sEN5I5YhMTTnyryhqvl naEX7LQEiVDAq sN26mUSpFIzgBn8sh6S5v 748YKGbDEBcaJ95Ky3fcO aoUMBekMFCoZ3aqgyto3p vcjogIzAwMDAw SRw4XVh8PMUazDgqDjZrH UH9VjE6SBX4pHNvfZ3dpA yowsiqeJ5pXzb+MjYgWWV qqkL6V8NhKko4 BMScbAtpNV4vbISvRGynF p0oiKscoTpmXN5bMZDflg umIHBvyQ9nXTXirKAhkNt eJT8zNNTezwhp p639DoUkAJJ9GCQsqMUnM 1WhkD9dKoRvZIEuTOQwN1 YiwEBnHGqlJ506FRipTiE 0PRYnhoDkX1Jx ZXCzxTawCmY5q7M4Wq9KK Y0wjOP4R1OjAin4QILswI xxJO6caDQbITlkNu7mzXn foNgpSH0aKHYi qeoePVYclF9fOUVkiOCee CxrFL8oPNAixpove002Ix VsIWY2ZGDgdGLrL2TyzD3 yOiAjMDAwMDAw H0XxhZJhMNtpX621UCpcR qJ0BKFqfdGrN5DiKOWzfZ mfZpH1j0H0Vo5PTPJkSRF elUAuFgS0V3Tp PjwvdHI+MA00AXYyRS11d QGscNJfu5lljMm8WaKbPA LyHXB2mMtvVPqkl6OrRMM uK92kqYMam6P8 UOZnbQbmbEBaYgRybNW9b E8sARahbxawy5eyfcgoTq vca3yqds91jJ44R62fSFh pZHRoPSIzMCUi OQUcgStnoj9llX0nDg0+P BYzxBA1xQN5yZ1bUdHeFv Y0YWvgP411YrXsyRCxAgh gb8hkk1jfvMv5 CaYeLNMccoQvtCjkJRW1x 7FzWz85Z52aYMopCRGzWR JgIEBpBQHouSntct9zuO0 wIi8+XD4tz6fq qy85fU10rWQ+BFGtTHN5k CpcEYgyLRSvyE3pTGfzXx Z7GDCnWzVctR02wKRnAXg dDi7kzKqcjEot UU6fVVZvprbve570GmQff 5duSGNmgMYkTGaxATR4S2 1iw2E0AXCbVPNlXYK4rOO 0dW4qbGsovlgs bGVmdDsgdmVydGljYWwtY SvjI565OJZrvVdpPjUkbP DoT6rmpkYXAW1pIqfrmDV +JBKzAGX7tZbi YWuiXNBpqK6cOESpJ4a8U aSbAhK3UNxvN5MlztG8PJ BfxKDdPSLqpBWGcF1bjdl bp2dicsyfVxVe QZZgQOh1HLu4MJKjnQaxX rNiFVI1EaU9LXN3lPKloC 7hlWwnapvioO4cOoe+Rkl OOjwvdGQ+PHRk XXW6yAnzEOtaVSXsoK7hZ YHzV3s7AsZwTuR9INuyJ7 UpaaY2TNUraXKtPTApjQX ViV8zehacv3ga mwgyPpIeNIXfPUi9YWb2W UScqHriVxZrIMY6QxN2EE K6bYUgoN0pjVdlgnqssN4 wOyc+TVJOOjwv dGQ+GKXrZBN7nAlfGLwrE PKbpN7lRBVjQ0a9NjSmAx J9HHsaA2XhjlZ9WSVcsBE jMLQyfAVLfY0b iknxb5aoknlnKmPlQLCjL Df0VDs7XEBxxBiyJiQzPO R5BlI4BUI8rFKjkC4rfEr ahpzgsT3oOyj+ KCE5HRE5DI47SP51O8EsN jwvdGFibGU+PHRhYmxlIH dpZHRoPScxMDAlJyBzdHl qJZ9kFh2uPPGt LWNv (more content not included)... Normal [facility] COVID-19 (MC)on 11-05-2020 SARS-CoV-2 (COVID-19) RNA REEMA+probe Ql (Unsp spec) Not detected Normal Not Detected [facility] Comment on above: Result Comment: This test result should be correlated with clinical presentations and medical history by a healthcare provider to determine its clinical significance. This assay was performed by a reverse transcriptase real-time polymerase chain reaction (rt PCR) method on the [employer] system. This test has been authorized only [...] or revoked sooner. Performed By: #### 2 [id number] #### [facility] [address] [place] [address] SARS-CoV-2 (COVID-19) RNA REEMA+probe Ql (Unsp spec) Pass Normal Pass [facility] Comment on above: Performed By: #### 2 [id number] #### [facility] [address] [place] [address] Specimen source Nom (Unsp spec) Nasal Normal [facility] Comment on above: Performed By: #### 2 [id number] #### [facility] [address] [place] [address] Consent for Treatmenton 090 Consent for Treatment [id number] .00CD:127 Normal [facility] COVID-19 (MC)on 11-02-2020 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 NO Normal [facility] Comment on above: Performed By: #### 2 [id number] #### [facility] [address] [place] [address] ICU NO Normal [facility] Comment on above: Performed By: #### 2 [id number] #### [facility] [address] [place] [address] ? Unknown Normal [facility] Comment on above: Performed By: #### 2 [id number] #### [facility] [address] [place] [address] Resides in a Congregate Care Setting Unknown [facility] Comment on above: Performed By: #### 2 [id number] #### [facility] [address] [place] [address] Symptomatic as defined by CDC YES Normal [facility] Comment on above: Performed By: #### 2 [id number] #### [facility] [address] [id number] Physician Orderon 08-27-2020 Physician Order [id number] .00CD:127 Normal [facility] URon 03-22-2020 , QUAL Negative Normal NEGATIVE [facility] Comment on above: Performed By: #### P REGU #### [facility] [address] [address] Juany Mccarthy Covid-19 PCR (CVDTB)on 02-02 Covid-19 PCR DETECTED Abnormal NOT DETECTED [facility] Comment on above: Result Comment: This test is not yet approved or cleared by the [place] FDA. When there are no FDA-approved or cleared tests available, and other criteria are met, FDA can make tests available under an emergency access mechanism called an Emergency Use Authorization (EUA). The EUA for this test is supported by the [place] of Health and Human Service's (HHS's) declaration [...] used). Performed By: #### C VDTB #### [facility] [address] [address] Juany Mccarthy EUA Statement SEE BELOW Normal The [place] Comment on above: Result Comment: This test is not yet approved or cleared by the [place] FDA. When there are no FDA-approved or cleared tests available, and other criteria are met, FDA can make tests available under an emergency access mechanism called an Emergency Use Authorization (EUA). The EUA for this test is supported by the [place] of Health and Human Service?s (HHS?s) declaration [...] consistent with SARS-CoV-2. Performed By: #### C VDTBH #### [facility] [address] [address] Juany Mccarthy Vital Signs Date Time Vital Sign Value Performing Clinician Facility 07-20-2023 18:58-0400 Body temperature 98.49 [degF] Ousmane Danielson MD Work Phone: [facility] 07-20-2023 18:58-0400 Diastolic blood pressure 83 mm[Hg] Ousmane Danielson MD Work Phone: [facility] 07-20-2023 18:58-0400 Heart rate 52 /min Ousmane Danielson MD Work Phone: [facility] 07-20-2023 18:58-0400 Respiratory rate 18 /min Ousmane Danielson MD Work Phone: [facility] 07-20-2023 18:58-0400 SaO2% (BldA) [Mass fraction] 98 % Ousmane Danielson MD Work Phone: [facility] 07-20-2023 18:58-0400 Systolic blood pressure 135 mm[Hg] Ousmane Danielson MD Work Phone: [facility] 07-20-2023 13:40-0400 Body height 167.6 cm Ousmane Danielson MD Work Phone: [facility] 07-20-2023 13:40-0400 Body mass index (BMI) [Ratio] 19.05 kg/m2 Ousmane Danielson MD Work Phone: [facility] 07-20-2023 13:40-0400 Body weight 53.52 kg Ousmane Danielson MD Work Phone: [facility] Encounters Encounter Date Encounter Type Care Provider Facility Start: 07-20-2023 End: 07-20-2023 Emergency department patient visit OUSMANE DANIELSON [facility] Start: 07-20-2023 End: 07-20-2023 Emergency department patient visit Ousmane Danielson MD Work Phone: [facility] Comment on above: Nausea and vomiting, unspecified vomiting type (Primary Dx); Gastritis, presence of bleeding unspecified, unspecified chronicity, unspecified gastritis type Start: 06-13-2023 End: 06-13-2023 [facility] Elton Cummings MD Work Phone: Endocrinology Comment on above: Prolactinoma (HCC) ( Primary Dx); 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HCC); Elevated prolactin level Start: 05-24-2023 End: 05-24-2023 ambulatory CAROLYNE EDMONDS Not Available Start: 03-19-2023 End: 03-19-2023 ambulatory MARZENAAleksandra FOSTERO Not Available Start: 02-22-2023 End: 02-22-2023 ambulatory CAROLYNE EDMONDS Not Available Start: 03-22-2020 End: 03-22-2020 Patient encounter procedure YASMIN MARTINEZ Facility:[facility] Start: 03-03-2020 [facility] Start: 02-25-2020 Encounter for other preprocedural examination YASMINCOLTON MARTINEZ [facility] Start: 02-23-2020 End: 02-23-2020 Patient encounter procedure YASMIN MARTINEZ Facility:[facility] Start: 02-20-2020 End: 02-20-2020 Patient encounter procedure YASMIN MARTINEZ Facility:[facility] Start: 02-16-2020 End: 02-17-2020 Patient encounter procedure YASMIN MARTINEZ Facility:[facility] Encounter for other preprocedural examination YASMIN MARTINEZ [facility] Encounter for preprocedural laboratory examination YASMIN MARTINEZ [facility] Procedures Date Procedure Procedure Detail Performing Clinician Start: 07-20-2023 CT CHEST ABDOMEN PEL VIS W IV CONTRAST OUSMANE DANIELSON Start: 07-20-2023 Lactate [Moles/volum e] in Serum or Plasma OUSMANE LOWE Start: 07-20-2023 XR CHEST 1 VIEW OUSMANE Mark OWE Start: 07-20-2023 DRUG SCREEN,URINE OUSMANE LOWMichael Start: 07-20-2023 EXTRA URINE DORAN TUBE J OSEF LOWE Start: 07-20-2023 URINALYSIS MICROSCOP IC WITH REFLEX CULTURE OUSMANE LOWE Start: 07-20-2023 URINALYSIS WITH REFL EX CULTURE AND MICROSCOPIC OUSMANE LOWE Start: 07-20-2023 Ct thorax w/contrast material Abiodun Ochoa PA-C Work Phone: Start: 07-20-2023 CBC W Auto Different ial [facility] Start: 07-20-2023 Comprehensive metabo lic 2000 panel - Serum or Plasma OUSMANE LOWMichael Start: 07-20-2023 HUMAN CHORIONIC GONADOTROPIN, SERUM QUANTITATIVE [facility] Start: 07-20-2023 Lactate [Moles/volum e] in Serum or Plasma [facility] Start: 07-20-2023 Lipase [Enzymatic activity/volume] in Serum or Plasma [facility] Start: 07-20-2023 TROPONIN I, HIGH SENSITIVITY [facility] Start: 07-20-2023 ECG 12[facility]AD [facility] Start: 07-20-2023 INSERT PERIPHERAL IV RA [facility] Start: 07-20-2023 Assay of lactate Abiodun Ochoa PA-C Work Phone: Start: 07-20-2023 Radiologic exam ches t single view Abiodun Ochoa PA-C Work Phone: Start: 07-20-2023 Drug tst prsmv instr mnt chem analyzers pr date Abiodun Ochoa PA-C Work Phone: Start: 07-20-2023 Urinalysis complete W Reflex Culture panel - Urine Abiodun Ochoa PA-C Work Phone: Start: 07-20-2023 Urnls dip stick/tabl et reagent auto microscopy Abiodun Ochoa PA-C Work Phone: Start: 07-20-2023 Comprehensive metabo lic panel Abiodun Ochoa PA-C Work Phone: Start: 07-20-2023 Ecg routine ecg w/le ast 12 lds trcg only w/o i&r Abiodun Ochoa PA-C Work Phone: Plan of Treatment Date Care Activity Detail Author Start: 2044 Zoster Vaccines (1 of 2) Zoste r Vaccines (1 of 2) [facility] Start: 11-04-2023 Influenza vaccination Influenz a Vaccine (Season Ended) [facility] Start: 07-11-2023 End: 10-10-2023 Corticotropin [Mass/volume] in Plasma ACTH BLD Lab Routine 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[facility]) Expected: 07/11/2023, Expires: 10/10/2023 [facility] Comment on above: Expected: 07/11/2023 , Expires: 10/10/2023 Start: 07-11-2023 End: 10-10-2023 Cortisol [Mass/volume] in Serum or Plasma CORTISOL, SERUM Lab Routine 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[facility]) Expected: 07/11/2023, Expires: 10/10/2023 [facility] Comment on above: Expected: 07/11/2023 , Expires: 10/10/2023 Start: 07-11-2023 End: 10-10-2023 Estradiol (E2) [Mass/volume] in Serum or Plasma ESTRADIOL-17B BLD Lab Routine 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[facility]) Expected: 07/11/2023, Expires: 10/10/2023 [facility] Comment on above: Expected: 07/11/2023 , Expires: 10/10/2023 Start: 07-11-2023 End: 10-10-2023 Follitropin [Units/volume] in Serum or Plasma FOLLICLE STIMULATING HORMONE Lab Routine 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[facility]) Expected: 07/11/2023, Expires: 10/10/2023 [facility] Comment on above: Expected: 07/11/2023 , Expires: 10/10/2023 Start: 07-11-2023 End: 10-10-2023 INSULIN LIK GR FAC I INSULIN LIK GR FAC I Lab Routine 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[facility]) Expected: 07/11/2023, Expires: 10/10/2023 [facility] Comment on above: Expected: 07/11/2023 , Expires: 10/10/2023 Start: 07-11-2023 End: 10-10-2023 Lutropin [Units/volume] in Serum or Plasma LUTEINIZING HORMONE Lab Routine 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[facility]) Expected: 07/11/2023, Expires: 10/10/2023 [facility] Comment on above: Expected: 07/11/2023 , Expires: 10/10/2023 Start: 07-11-2023 End: 08-09-2024 MR Pituitary and Sella turcica WO and W contrast IV MRI PITUITARY WO/W IVCON Radiology Routine 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[facility]) Expected: 07/11/2023, Expires: 08/09/2024 [facility] Work Phone: Comment on above: Expected: 07/11/2023 , Expires: 08/09/2024 Start: 07-11-2023 End: 10-10-2023 Prolactin [Mass/volume] in Serum or Plasma PROLACTIN Lab Routine 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[facility]) Expected: 07/11/2023, Expires: 10/10/2023 [facility] Comment on above: Expected: 07/11/2023 , Expires: 10/10/2023 Start: 07-11-2023 End: 10-10-2023 Somatostatin [Mass/volume] in Plasma GROWTH HORMONE Lab Routine 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[facility]) Expected: 07/11/2023, Expires: 10/10/2023 [facility] Comment on above: Expected: 07/11/2023 , Expires: 10/10/2023 Start: 07-11-2023 End: 10-10-2023 Thyrotropin [Units/volume] in Serum or Plasma THYROID STIMULATING HORMONE Lab Routine 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[facility]) Expected: 07/11/2023, Expires: 10/10/2023 [facility] Comment on above: Expected: 07/11/2023 , Expires: 10/10/2023 Start: 07-11-2023 End: 10-10-2023 Thyroxine (T4) free [Mass/volume] in Serum or Plasma T4 FREE/FREE THYROXINE Lab Routine 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[facility]) Expected: 07/11/2023, Expires: 10/10/2023 [facility] Comment on above: Expected: 07/11/2023 , Expires: 10/10/2023 Start: 03-05-2023 Behavioral Health Screening Behavioral Health Screening [facility] Start: 11-03-2022 Covid-19 Vaccine () Covid-19 Vaccine () [facility] Start: 05-29-2018 DTaP/Tdap/Td Vaccine s (3 - Td or Tdap) DTaP/Tdap/Td Vaccines (3 - Td or Tdap) [facility] Start: 05-29-2018 Urine microalbumin profile DTaP,Tdap,Td Vaccine (3 - Td or Tdap) [facility] Start: 08-30-2015 Screening for malign ant neoplasm of cervix [facility] Start: 07-13-2014 Hepatitis B Vaccine (3 of 3 - 19+ 3-dose series) Hepatitis B Vaccine (3 of 3 - 19+ 3-dose series) [facility] Start: 07-13-2014 Hepatitis B Vaccines (3 of 3 - 19+ 3-dose series) Hepatitis B Vaccines (3 of 3 - 19+ 3-dose series) [facility] Start: 05-12-2014 Hepatitis A Vaccines (2 of 2 - 2-dose series) Hepatitis A Vaccines (2 of 2 - 2-dose series) [facility] Start: 2012 Hepatitis C screening Hepatitis C Sc reening [facility] Start: 2012 HIV screening HIV Screening [facility] Start: 05-18-2010 Varicella vaccination Varicell a Vaccines (2 of 2 - 13+ 2-dose series) [facility] Start: 2000 Pneumococcal Vaccine : Pediatrics (0 to 5 Years) and At-Risk Patients (6 to 64 Years) (1 of 2 - PCV) Pneumococcal Vaccine: Pediatrics (0 to 5 Years) and At-Risk Patients (6 to 64 Years) (1 of 2 - PCV) [facility] Start: 07-06-1999 IPV Vaccines (2 of 3 - 4-dose series) IPV Vaccines (2 of 3 - 4-dose series) [facility] Start: 1994 HIV screening HIV Screening [facility] Start: 1994 Lipid panel Lipid Panel [facility] Start: 1994 Yearly Adult Physical Yearly Adult P hysical [facility] ECG 12 lead ECG 12 lead ECG STAT 07/20/2023 2:57 PM EDT [facility] Work Phone: End: 07-20-2023 Extra Urine [facility]an [facility] Work Phone: Comment on above: Once for 1 Occurrenc es starting 07/20/2023 until 07/20/2023 End: 07-20-2023 Urinalysis complete W Reflex Culture panel - Urine [facility] Service Area Work Phone: Comment on above: Once (Lab) for 1 Kahlil donaldson starting 07/20/2023 until 07/20/2023 Immunizations Immunization Date Immunization Notes Care Provider Felicitas chase 12-06-2015 influenza virus vaccine, unspecified formulation Elton Cummings MD Work Phone: [facility] 11-12-2013 hepatitis A and hepatitis B vaccine Ousmane Danielson MD Work Phone: [facility] Work Phone: 04-20-2010 varicella virus vaccine Jeovanny Danielson MD Work Phone: [facility] Work Phone: 06-08-1999 poliovirus vaccine, unspecified formulation Ousmane Danielson MD Work Phone: [facility] Work Phone: Payers Date Payer Category Payer Unknown [id number] 2019 Unknown [id number] 1994 Unknown [id number] 2.16.84 [id number] 1994 Unknown [id number] 2.16.84 [id number] 1994 Unknown [id number] 2.16.84 [id number] 1994 Unknown [id number] 2.16.84 [id number] 1994 Unknown [id number] 2.16.84 [id number] 1994 Unknown [id number] 2.16.84 [id number] 1994 Unknown [id number] 1994 Unknown [id number] 2.16.8 [id number] 1959 Unknown [id number] 1959 Unknown [id number] 1959 Unknown [id number] Social History Date Type Detail Facility [facility] consumption unknown [facility] Start: 06-13-2023 History of Social function [facility] Start: 06-13-2023 Area Deprivation Index [facility] National Score (1-10 0), lower number is lower risk 85 [facility] Start: 1994 Sex Assigned At Not on file [facility] Start: 07-10-2023 End: 07-20-2023 Exposure to SARS-CoV-2 (event) Not sure [facility] Work Phone: Reason for referral (narrative) 07-20-2023 Consultation (Routine) - Authorized Note Date & Type Note Facility 07-20-2023 Reason for referr al (narrative) Specialty Diagnoses / Procedures Referred By Niki villeda Referred To Contact Gastroenterology Abiodun Ochoa PA-C [address] [facility] [address] [place] [address] Do [id number] [address] [facility] [address] [place] [address] Referral ID Status Reason Start Date Expiration Date Visits Requested Visits Authorized [id number] Authorized Specialty Services Required 07/20/2023 07/19/2024 1 1 [facility] Work Phone: Progress note 06-13-2023 Note Date & Type Note Facility 06-13-2023 Note HNO ID: [id number] Author: ELTON CUMMINGS MD Service: ? Author Type: Physician Type: Progress Notes Filed: 07/16/2023 23:58 Note Text: Endocrinology/Initial Pituitary Assessment Note: History of Present Illness: Ms. Sue St is a 27 year old female coming today for Referred By: She had noted bilateral expressible galactorrhea that was clear in color and sometimes white. She has nipple rings on both nipples. Her periods occur one per month and menses last 6 to 7 days. Decreased libido and abdominal pain. She has 1 child that will be 11 years this year. She did not have difficulty conceiving her first child. She then had a miscarriage in 2016 and since then has had fertility issues. She was told her tubes were closed but she had both hysteroscopy and laparoscopy to un clog her right fallopian tube. Her prolactin was tested and it was 101 She is currently taking medications for Bipolar - olanzapine and risperidone and takes 20 mg of ritalin ADHD. Answers submitted by the patient for this visit: Endocrine Review of Systems (Submitted on 06/13/2023) Fatigue: Yes Night sweats: Yes Recent unintentional weight change: Yes Skin Color Changes: No Post-Nasal Drip: Yes Thyroid Pain (lower neck): Yes Trouble Swallowing: No Vision Disturbance: Yes Chest pain: No Leg Swelling: No Blood Clots?: No Leg Pain while walking?: No Difficulty Breathing?: No Heartburn: Yes Nausea: No Vomiting: No Diarrhea: No Constipation: No Abdominal pain: Yes Bone Pain?: No Muscle aches: Yes Muscle weakness: No Joint pain or stiffness: Yes Headaches: Yes Dizziness: Yes Numbness?: Yes Urgency to Urinate?: Yes Increased Urination: Yes Slow or Small Urine Stream?: No Are your menstrual cycles regular?: No Are your menstrual cycles irregular?: Yes Have your menstrual cycles stopped?: No Flushing: No Hot Flashes?: No Increased Thirst: Yes Change in Body Hair?: No Cold Intolerance: Yes Heat Intolerance: No Past Medical History: No past medical history on file. Surgical History: No past surgical history on file. Family Medical History: No family history on file. Social History: Allergies: ALLERGIES Not on File Current medications: Current Outpatient Medications Medication Sig Norethindrone Acet-Ethinyl Est (LOESTRIN 03/24, ,) 1-20 mg-mcg per tablet Take 1 tablet by mouth once daily. in continuous fashion estradiol (ESTRACE) 2 mg tablet Take 1 tablet by mouth once daily. x 1 week for breakthrough bleeding No current facility-administered medications for this visit. Previous laboratory results: Operative Report: Pathology: Imaging: ASSESSMENT/PLAN: (D35.2) Prolactinoma (HCC) (primary encounter diagnosis) (E23.7) 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HCC) Plan: MRI PITUITARY WO/W IVCON, iv contrast (will be provided with radiology test), ACTH BLD, CORTISOL, SERUM, THYROID STIMULATING HORMONE, T4 FREE/FREE THYROXINE, PROLACTIN, INSULIN LIK GR FAC I, GROWTH HORMONE, FOLLICLE STIMULATING HORMONE, LUTEINIZING HORMONE, ESTRADIOL-17B BLD (R79.89) Elevated prolactin level SIGNATURE: Elton Cummings MD DATE of SERVICE: June 13, 2023 TIME of SERVICE: 10:12 AM [facility] History of Present illness Narrative 06-13-2023 Elton Cummings MD - 06/13/2023 10:12 AM EDT Note Date & Type Note Facility 06-13-2023 History of Presen t illness Narrative Endocrinology/Initial Pituitary Assessment Note: History of Present Illness: Ms. Sue St is a 27 year old female coming today for Referred By: She had noted bilateral expressible galactorrhea that was clear in color and sometimes white. She has nipple rings on both nipples. Her periods occur one per month and menses last 6 to 7 days. Decreased libido and abdominal pain. She has 1 child that will be 11 years this year. She did not have difficulty conceiving her first child. She then had a miscarriage in 2016 and since then has had fertility issues. She was told her tubes were closed but she had both hysteroscopy and laparoscopy to un clog her right fallopian tube. Her prolactin was tested and it was 101 She is currently taking medications for Bipolar - olanzapine and risperidone and takes 20 mg of ritalin ADHD. Answers submitted by the patient for this visit: Endocrine Review of Systems (Submitted on 06/13/2023) Fatigue: Yes Night sweats: Yes Recent unintentional weight change: Yes Skin Color Changes: No Post-Nasal Drip: Yes Thyroid Pain (lower neck): Yes Trouble Swallowing: No Vision Disturbance: Yes Chest pain: No Leg Swelling: No Blood Clots?: No Leg Pain while walking?: No Difficulty Breathing?: No Heartburn: Yes Nausea: No Vomiting: No Diarrhea: No Constipation: No Abdominal pain: Yes Bone Pain?: No Muscle aches: Yes Muscle weakness: No Joint pain or stiffness: Yes Headaches: Yes Dizziness: Yes Numbness?: Yes Urgency to Urinate?: Yes Increased Urination: Yes Slow or Small Urine Stream?: No Are your menstrual cycles regular?: No Are your menstrual cycles irregular?: Yes Have your menstrual cycles stopped?: No Flushing: No Hot Flashes?: No Increased Thirst: Yes Change in Body Hair?: No Cold Intolerance: Yes Heat Intolerance: No Past Medical History: No past medical history on file. Surgical History: No past surgical history on file. Family Medical History: No family history on file. Social History: Allergies: ALLERGIES Not on File Current medications: Current Outpatient Medications Medication Sig Norethindrone Acet-Ethinyl Est (LOESTRIN 03/24, ,) 1-20 mg-mcg per tablet Take 1 tablet by mouth once daily. in continuous fashion estradiol (ESTRACE) 2 mg tablet Take 1 tablet by mouth once daily. x 1 week for breakthrough bleeding No current facility-administered medications for this visit. Previous laboratory results: Operative Report: Pathology: Imaging: ASSESSMENT/PLAN: (D35.2) Prolactinoma (HCC) (primary encounter diagnosis) (E23.7) 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HCC) Plan: MRI PITUITARY WO/W IVCON, iv contrast (will be provided with radiology test), ACTH BLD, CORTISOL, SERUM, THYROID STIMULATING HORMONE, T4 FREE/FREE THYROXINE, PROLACTIN, INSULIN LIK GR FAC I, GROWTH HORMONE, FOLLICLE STIMULATING HORMONE, LUTEINIZING HORMONE, ESTRADIOL-17B BLD (R79.89) Elevated prolactin level SIGNATURE: Elton Cummings MD DATE of SERVICE: June 13, 2023 TIME of SERVICE: 10:12 AM documented in this encounter [facility] Procedure note 01-20-2021 Note Date & Type Note Facility 01-20-2021 Note HNO ID: [id number] Author: Renetta Beltran MD Service: Reproductive Endocrinology [...] Type Note Facility 01-20-2021 Note HNO ID: [id number] Author: RT Juan(R) Service: Radiology Author Type: [...] IV DATA: Not applicable SIGNED BY: Samina Davison, RT(R) January 20, 2021 12:29 PM [facility] Evaluation note Note Date & Type Note Facility Evaluation note Diagnosis Prolactinoma (HCC)- Primary Benign neoplasm of pituitary gland and craniopharyngeal duct (pouch) 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HCC) Unspecified disorder of the pituitary gland and its hypothalamic control Elevated prolactin level Unspecified endocrine disorder documented in this encounter [facility] Evaluation note Note Date & Type Note Facility Evaluation note Diagnosis Nausea and vomiting, unspecified vomiting type- Primary Gastritis, presence of bleeding unspecified, unspecified chronicity, unspecified gastritis type documented in this encounter [facility] Work Phone: Hospital Discharge instructions Attachments Note Date & Type Note Facility Hospital Discharge instructions The following attachments cannot be sent through Care Everywhere.Gastritis ED (Japanese)Nausea and Vomiting, Adult ED (Japanese)Cannabis hyperemesis syndrome (Japanese)documented in this encounter [facility] Work Phone: Summary Purpose Family History No Family History [...] Directives Records FoundNo Advanced Directives Records Found Reason for Referral Specialty Diagnoses / Procedures Referred By Contac t Referred To Contact MR IMAGING Diagnoses 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HCC) Procedures MRI PITUITARY WO/W IVCON MRI BRAIN BRAIN STEM W/O W/CONTRAST MATERIAL Elton Cummings MD [address] [place] [address] Mr Imaging [id number] Referral ID Status Reason Start Date Expiration Date Visits Requested Visits Authorized [id number] Pending Review Auto-Generat ed Referral 07/11/2023 08/09/2024 1 1 Additional Source Comments INFORMATION SOURCE (unrecogn ized section and content) DATE CREATED AUTHOR 04/15/2020 Felice bustamante DATE CREATED AUTHOR AUTHOR'S ORGANIZ ATION 01/22/2021 [facility] DATE CREATED AUTHOR AUTHOR'S ORGANIZ ATION 01/22/2021 [facility] DATE CREATED AUTHOR AUTHOR'S ORGANIZ ATION 05/26/2023 [facility] DATE CREATED AUTHOR AUTHOR'S ORGANIZ ATION 07/18/2023 [facility] DATE CREATED AUTHOR AUTHOR'S ORGANIZ ATION 07/23/2023 [facility] DATE CREATED AUTHOR AUTHOR'S ORGANIZ ATION 07/24/2023 [facility] Source Comments (unrecognize d section and content) In the event this informatio n is protected by the Federal Confidentiality of Alcohol and Drug Abuse Patient Records regulations: The Federal rules restrict any use of the information to criminally investigate or prosecute any alcohol or drug abuse patient.[facility] Reason for Visit (unrecogniz ed section and content) Reason Comments Pituitary Problem Reason Comments n/v. chest pain Care Teams (unrecognized sec tion and content) Release Specialist Relationship Specialty Start Date End Date Marzena Meade DO [address] [place] [address] [place] [address] Referring Spring Fitter 06/05/23 Scheduled Active and Recently Administ ered Medications (unrecognized section and content) Medication Order 07/18/2023 07/19/2023 07/20/2023 diphenhydrAMINE (BENADryl) injection 25 mg (COMPLETED) 25 mg, intravenous, Once, On Sun07/20/23 at 1455, For 1 dose, If giving IV push, max rate of 25 mg/min. 1459 (Given - Provid er: Caroline Brennan RN) famotidine PF (Pepcid) injection 20 mg (COMPLETED) 20 mg, intravenous, Once, On Sun07/20/23 at 1910, For 1 dose 191 (Given - Provid er: Deni Sandra RN) haloperidol lactate (Haldol) injection 5 mg (COMPLETED) 5 mg, intramuscular, Once, On Sun07/20/23 at 1455, For 1 dose, Patients receiving IV haloperidol should be on continuous cardiac monitoring. 1500 (Given - Provid er: Caroline Brennan RN) iohexol (OMNIPaque) 350 mg iodine/mL solution 75 mL (COMPLETED) 75 mL, intravenous, Once in imaging, Starting on Sun07/20/23 at 1739, For 1 dose 1740 (Given - Provid er: Akin Aiken) ketorolac (Toradol) injection 15 mg (COMPLETED) 15 mg, intravenous, Once, On Sun07/20/23 at 1650, For 1 dose 1700 (Given - Provid er: Caroline Brennan RN) lactated Ringer's bolus 1,000 mL (COMPLETED) 1,000 mL, intravenous, at 999 mL/hr, Administer over 1 Hours, Once, On Sun07/20/23 at 1455, For 1 dose 1500 (New Bag - Prov ider: Caroline Brennan RN)1600 (Stopped - Provider: Caroline Brennan RN) morphine injection 4 mg (COMPLETED) 4 mg, intravenous, Once, On Sun07/20/23 at 1540, For 1 dose 1540 (Given - Provid er: Caroline Brennan RN) morphine injection 4 mg (COMPLETED) 4 mg, intravenous, Once, On Sun07/20/23 at 1815, For 1 dose 1826 (Given - Provid er: Caroline Brennan RN) FOR RECORDS PERTAINING TO PATIENTS WHO ARE [...] BE BASED ON THE PRIMARY CLINICAL RECORDS. [facility]. provides no warranty or guarantee of the accuracy or completeness of information in this document.
[2023-07-26 09:59] LABS: Free T4 1.04 ng/dL (0.76-1.46)
[2023-07-26 10:06] LABS: Thyroid Stimulating Hormone 2.462 uIU/mL (0.358-3.740)
[2023-07-27 04:08] LABS: Estradiol 54.9 pg/mL (.); FSH 10.8 mIU/mL (.); Luteinizing Hormone(LH) 18.3 mIU/mL (.); Prolactin 10.2 ng/mL (4.8-33.4)
[2023-07-28 01:07] LABS: IGF-1 146 ng/mL (91-308)
== END 2023-07-26 07:08 | disposition home or self-care (01) ==
LOC: LAB 07:08
PROVIDERS: PCP Family Medicine
DX: E23.7 Disorder of pituitary gland, unspecified (principal)
CPT/HCPCS: 36415; 82024; 82533; 82670; 83001; 83002; 83003; 84146; 84305; 84439; 84443

== ENCOUNTER 2023-08-02 14:22 | Outpatient (OUT) | payer BC, SELFPAY ==
--- NOTE | 2023-08-02 14:26 | MR_ITS ---
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 TECHNIQUE: Multiplanar multisequence MRI of the brain with high-resolution thin section dynamic sequences through the pituitary both before and after intravenous administration of 10 mL gadolinium contrast. FINDINGS: There is a 2.5 mm focus of hypoenhancement in the left side of the pituitary. The pituitary is otherwise normal in size. The superior surface of the pituitary is flat. The pituitary infundibulum, optic chiasm and cavernous sinuses are normal in appearance. The brain is otherwise normal in appearance. The ventricles, cisterns and parenchyma are within normal limits. There is no evidence of mass effect, shift, hemorrhage, extra-axial collection, abnormal T2 prolongation, restricted diffusion or pathologic enhancement.. Orbits and contents, sinuses, nasopharynx, midline structures, temporal bones and contents, mastoid air cells, vascular structures, craniocervical junction, skull and scalp are within normal limits. MR/MR pituitary wo/w con IMPRESSION: 2.5 mm focus of hypoenhancement in the left side of the pituitary gland is consistent with a pituitary microadenoma. The study is otherwise within normal limits. Electronically authenticated by: RACHELLE GOODMANU Date: 08/04/2023 23:20
== END 2023-08-02 14:23 | disposition home or self-care (01) ==
LOC: MRI 14:22
PROVIDERS: PCP Family Medicine
DX: E23.7 Disorder of pituitary gland, unspecified (principal)
CPT/HCPCS: 70553; A9575

== ENCOUNTER 2023-09-07 15:59 | Outpatient (OUT) | payer BC, SELFPAY ==
--- OUTSIDE RECORDS SUMMARY | 2023-09-07 16:04 | XMS_ITS | CCD ---
Author Organization [facility] Care Team Providers Care Office Manager Receptionist Name Role Phone YASMIN MARTINEZ Consulting Unavailable CAROLYNE EDMONDS Primary Care Unavailable YASMIN MARTINEZ Admitting Unavailable RONALDKYASMIN Attending Unavailable GIGI COBB Consulting Unavailable KARILDEFONSOKYASMIN Admitting Unavailable KARILDEFONSOK, YASMIN Attending Unavailable YASMIN MARTINEZ Consulting Unavailable YASMIN MARTINEZ Consulting Unavailable YASMIN MARTINEZ Admitting Unavailable YASMIN MARTINEZ Attending Unavailable YASMIN MARTINEZ Primary Care Unavailable MICHELLE, YASMIN Admitting Unavailable YASMIN MARTINEZ Attending Unavailable Marzena Meade DO Unavailable Unavailable Primary Care Provider UnavailOUSMANE Melvin Attending Unavailable ELTON CUMMINGS Attending Unavailable MARZENA MEADE Attending Unavailable CAROLYNE EDMONDS Attending Unavailable CAROLYNE EDMONDS Attending Unavailable CAROLYNE EDMONDS Attending Unavailable CAROLYNE EDMONDS Attending Unavailable Carolyne Edmonds Referring Unavailable Alex Knutson Attending Unavailable Medications Current Medications Medication Drug Class(es) Dates Sig (Normalized) Sig (Original) estradiol 2 mg oral tablet (2 sources) Estrogen Start: 01-21-2021 take 1 tablet by mouth once daily estradiol (ESTRACE) 2 mg tablet Take 1 tablet by mouth once daily. 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] Onset: 03-24-2020 Episodic Other [...] Test Name Value Interpretation Reference Range Facility [facility] 08-14-2023 CNPN Telephone (ENDOMN) SUE ST ([id number]) 1995 F Date Time Provider Department 08/14/23 ELTON CUMMINGS ENDOMN During your visit today, we recorded the following information about you: Santiago Salcedo MA 08/14/2023 11:09 AM Signed Received MRI results completed 08/02/2023, scanned to chart Santiago Salcedo Claims Vice President II Endocrinology AND Metabolism [facility] F20 AND X20 Allergies As of Date: 08/14/2023 (Not on File) Date Reviewed: Never Reviewed Reason for Visit: Results [95] Prescriptions as of 08/14/2023 - Norethindrone Acet-Ethinyl Est (LOESTRIN 03/24, ,) 1-20 mg-mcg per tablet Take 1 tablet by mouth once daily. in continuous fashion - estradiol (ESTRACE) 2 mg tablet Take 1 tablet by mouth once daily. x 1 week for breakthrough bleeding Problem List As Of Date: 08/14/2023 (None) Encounter Status:Closed by SANTIAGO SALCEDO on 08/14/23 Normal [facility] CBC W Auto Differential pane l (Bld)on 07-20-2023 Basophils (Bld) [#/Vol] 0.03 x10*3/uL Normal 0.00-0.10 Comment on above: Performed By: #### 5 7021-8 #### JIMENA Mark ([id number]) [facility] ([facility]) [address] [place] [address] 24784 Basophils/100 WBC (Bld) 0.3 % Normal 0.0-2.0 [facility] Comment on above: Performed By: #### 5 7021-8 #### JIMENA Mark ([id number]) [facility] ([facility]) [address] [place] [address] Eosinophils (Bld) [#/Vol] 0.00 x10*3/uL Normal 0.00-0.70 Comment on above: Performed By: #### 5 7021-8 #### JIMENA Mark ([id number]) [facility] ([facility]) [address] [place] [address] Eosinophils/100 WBC (Bld) 0.0 % Normal 0.0-6.0 Comment on above: Performed By: #### 5 7021-8 #### JIMENA Mark ([id number]) [facility] ([facility]) [address] [place] [address] Erythrocyte distribution width (RBC) [Ratio] 14.5 % Normal 11.5-14.5 Comment on above: Performed By: #### 5 7021-8 #### JIMENA Mark ([id number]) [facility] ([facility]) [address] [place] [address] Hematocrit (Bld) [Volume fraction] 39.1 % Normal 36.0-46.0 Comment on above: Performed By: #### 5 7021-8 #### JIMENA Mark ([id number]) [facility] ([facility]) [address] [place] [address] 37104 Hemoglobin (Bld) [Mass/Vol] 13.5 g/dL Normal 12.0-16.0 Comment on above: Performed By: #### 5 7021-8 #### JIMENA Mark ([id number]) [facility] ([facility]) [address] [place] [address] Immature granulocytes (Bld) [#/Vol] 0.03 x10*3/uL Normal 0.00-0.70 Comment on above: Performed By: #### 5 7021-8 #### JIMENA Mark ([id number]) [facility] ([facility]) [address] [place] [address] 63398 Immature granulocytes/100 WBC (Bld) 0.3 % Normal 0.0-0.9 Comment on above: Result Comment: Yanet ture Granulocyte Count (IG) includes promyelocytes, myelocytes and metamyelocytes but does not include bands. Percent differential counts (%) should be interpreted in the context of the absolute cell counts (cells/UL). Performed By: #### 5 7021-8 #### JIMENA Mark ([id number]) [facility] ([facility]) [address] [place] [address] Lymphocytes (Bld) [#/Vol] 0.98 x10*3/uL Low 1.20-4.80 Comment on above: Performed By: #### 5 7021-8 #### JIMENA Mark ([id number]) [facility] ([facility]) [address] [place] [address] 15631 Lymphocytes/100 WBC (Bld) 8.5 % Normal 13.0-44.0 Comment on above: Performed By: #### 5 7021-8 #### JIMENA Mark ([id number]) [facility] ([facility]) [address] [place] [address] MCH (RBC) [Entitic mass] 28.7 pg Normal 26.0-34.0 Comment on above: Performed By: #### 5 7021-8 #### JIMENA Mark ([id number]) [facility] ([facility]) [address] [place] [address] MCHC (RBC) [Mass/Vol] 34.5 g/dL Normal 32.0-36.0 [facility] Comment on above: Performed By: #### 5 7021-8 #### JIMENA Mark ([id number]) [facility] ([facility]) [address] [place] [address] MCV (RBC) [Entitic vol] 83 fL Normal 80-100 U [facility] Comment on above: Performed By: #### 5 7021-8 #### JIMENA Mark ([id number]) [facility] ([facility]) [address] [place] [address] Monocytes (Bld) [#/Vol] 0.13 x10*3/uL Normal 0.10-1.00 Comment on above: Performed By: #### 5 7021-8 #### JIMENA Mark ([id number]) [facility] ([facility]) [address] [place] [address] Monocytes/100 WBC (Bld) 1.1 % Normal 2.0-10.0 [facility] Comment on above: Performed By: #### 5 7021-8 #### JIMENA Mark ([id number]) [facility] ([facility]) [address] [place] [address] Neutrophils (Bld) [#/Vol] 10.32 x10*3/uL High 1.20-7.70 Comment on above: Result Comment: Perc ent differential counts (%) should be interpreted in the context of the absolute cell counts (cells/uL). Performed By: #### 5 7021-8 #### JIMENA Mark ([id number]) [facility] ([facility]) [address] [place] [address] 49426 Neutrophils/100 WBC (Bld) 89.8 % Normal 40.0-80.0 Comment on above: Performed By: #### 5 7021-8 #### JIMENA Mark ([id number]) [facility] ([facility]) [address] [place] [address] Nucleated RBC/100 WBC (Bld) [Ratio] 0.0 /100 WBCs Normal 0.0-0.0 Comment on above: Performed By: #### 5 7021-8 #### JIMENA Mark ([id number]) [facility] ([facility]) [address] [place] [address] 52806 Platelets (Bld) [#/Vol] 290 x10*3/uL Normal 150-450 Comment on above: Performed By: #### 5 7021-8 #### JIMENA Mark ([id number]) [facility] ([facility]) [address] [place] [address] RBC (Bld) [#/Vol] 4.71 x10*6/uL Normal 4.00-5.20 [facility] Comment on above: Performed By: #### 5 7021-8 #### JIMENA Mark ([id number]) [facility] ([facility]) [address] [place] [address] 40644 WBC (Bld) [#/Vol] 11.5 x10*3/uL High 4.4-11.3 [facility] Comment on above: Performed By: #### 5 7021-8 #### JIMENA Mark ([id number]) [facility] ([facility]) [address] [place] [address] 94363 Basophils (Bld) [#/Vol] 0.03 10*3/uL [facility] Basophils/100 WBC (Bld) 0.3 % 0.0 - 2.0 % [facility] Eosinophils (Bld) [#/Vol] 0.00 10*3/uL [facility] Eosinophils/100 WBC (Bld) 0.0 % 0.0 - 6.0 % [facility] Erythrocyte distribution width (RBC) [Ratio] 14.5 % 11.5 - 14.5 % [facility] Hematocrit (Bld) [Volume fraction] 39.1 % 36.0 - 46.0 % [facility] Hemoglobin (Bld) [Mass/Vol] 13.5 g/dL 12.0 - 16.0 g/dL [facility] Immature granulocytes (Bld) [#/Vol] 0.03 10*3/uL [facility] Immature granulocytes/100 WBC (Bld) 0.3 % 0.0 - 0.9 % [facility] Comment on above: Immature Granulocyte Count (IG) includes promyelocytes, myelocytes and metamyelocytes but does not include bands. Percent differential counts (%) should be interpreted in the context of the absolute cell counts (cells/UL). Interpretation and review of laboratory results Abnormal [facility] Lymphocytes (Bld) [#/Vol] 0.98 10*3/uL Low [facility] Lymphocytes/100 WBC (Bld) 8.5 % 13.0 - 44.0 % [facility] MCH (RBC) [Entitic mass] 28.7 pg 26.0 - 34.0 pg [facility] MCHC (RBC) [Mass/Vol] 34.5 g/dL 32.0 - 36.0 g/dL [facility] MCV (RBC) [Entitic vol] 83 fL 80 - 100 fL [facility] Monocytes (Bld) [#/Vol] 0.13 10*3/uL [facility] Monocytes/100 WBC (Bld) 1.1 % 2.0 - 10.0 % [facility] Neutrophils (Bld) [#/Vol] 10.32 10*3/uL High [facility] Comment on above: Percent differential counts (%) should be interpreted in the context of the absolute cell counts (cells/uL). Neutrophils/100 WBC (Bld) 89.8 % 40.0 - 80.0 % [facility] Nucleated RBC/100 WBC (Bld) [Ratio] 0.0 % [facility] Platelets (Bld) [#/Vol] 290 10*3/uL [facility] RBC (Bld) [#/Vol] 4.71 10*6/uL [facility] WBC (Bld) [#/Vol] 11.5 10*3/uL [facility] CT CHEST ABDOMEN PELVIS W IV CONTRASTon 07-20-2023 CT CHEST ABDOMEN PELVIS W IV CONTRAST Interpreted By: Mag Santiago, STUDY: CT CHEST ABDOMEN PELVIS W IV CONTRAST; 07/20/2023 5:39 pm INDICATION: Signs/Symptoms:Persis tent vomiting, epigastric pain in the chest.. COMPARISON: Chest x-ray 07/20/2023. ACCESSION NUMBER(S): [id number] ORDERING CLINICIAN: ABIODUN OCHOA TECHNIQUE: Axial CT [...] Mag Santiago 07/20/2023 6:51 PM Dictation workstation: [id number] [facility] CT Chest and [...] Mag Santiago 07/20/2023 6:51 PM Dictation workstation: [id number] MMODAL Interpreted By: Mag Santiago, STUDY: CT CHEST ABDOMEN PELVIS W IV CONTRAST; 07/20/2023 5:39 pm INDICATION: Signs/Symptoms:Persis tent vomiting, epigastric pain in the chest.. COMPARISON: Chest x-ray 07/20/2023. ACCESSION NUMBER(S): [id number] ORDERING CLINICIAN: ABIODUN OCHOA TECHNIQUE: Axial CT [...] wall soft tissues are within normal limits. MMODAL Mag Santiago, DO - 07/20/2023 Interpreted By: Mag Santiago, STUDY: CT CHEST ABDOMEN PELVIS W IV CONTRAST; 07/20/2023 5:39 pm INDICATION: Signs/Symptoms:Persis tent vomiting, epigastric pain in the chest.. COMPARISON: Chest x-ray 07/20/2023. ACCESSION NUMBER(S): [id number] ORDERING CLINICIAN: ABIODUN OCHOA TECHNIQUE: Axial CT [...] Mag Santiago 07/20/2023 6:51 PM Dictation workstation: [id number] [facility] Work Phone: Radiology Study observation (narrative) [facility] Work Phone: CT Chest and Abdomen and Pel vis W contrast IVOrdered By: Mag Santiago on 07-20-2023 [facility] Work Phone: Choriogonadotropin.beta subu niton 07-20-2023 HCG.beta subunit Qn m[IU]/mL Normal <5 [facility] Comment on above: Order Comment: Total HCG measurement is performed using the Jade Panaca Access Immunoassay which detects intact HCG and free beta HCG subunit. This test is not indicated for use as a tumor marker. HCG testing is performed using a different test methodology at [facility] than other [facility]. Direct result comparison should only be made within the same method. Performed By: #### 2 1198-7 #### JIMENA Mark ([id number]) [facility] ([facility]) [address] [place] [address] Comprehensive metabolic 2000 panelon 07-20-2023 Albumin BCP dye [Mass/Vol] 4.7 g/dL Normal 3.4-5.0 Comment on above: Performed By: #### 2 4323-8 #### JIMENA Mark ([id number]) [facility] ([facility]) [address] [place] [address] ALP [Catalytic activity/Vol] 47 U/L Normal 33-110 Comment on above: Performed By: #### 2 4323-8 #### JIMENA Mark ([id number]) [facility] ([facility]) [address] [place] [address] 40367 ALT With P-5'-P [Catalytic activity/Vol] 14 U/L Normal 7-45 Comment on above: Result Comment: Edel ents treated with Sulfasalazine may generate falsely decreased results for ALT. Performed By: #### 2 4323-8 #### JIMENA Mark ([id number]) [facility] ([facility]) [address] [place] [address] 29730 Anion gap [Moles/Vol] 18 mmol/L Normal 10-20 [facility] Comment on above: Performed By: #### 2 4323-8 #### JIMENA Mark ([id number]) [facility] ([facility]) [address] [place] [address] 26724 AST With P-5'-P [Catalytic activity/Vol] 15 U/L Normal 9-39 Comment on above: Performed By: #### 2 4323-8 #### JIMENA Mark ([id number]) [facility] ([facility]) [address] [place] [address] 29138 Bilirubin [Mass/Vol] 0.6 mg/dL Normal 0.0-1.2 [facility] Comment on above: Performed By: #### 2 4323-8 #### JIMENA Mark ([id number]) [facility] ([facility]) [address] [place] [address] 10419 Calcium [Mass/Vol] 9.8 mg/dL Normal 8.6-10.3 [facility] Comment on above: Performed By: #### 2 4323-8 #### JIMENA Mark ([id number]) [facility] ([facility]) [address] [place] [address] 17686 Chloride [Moles/Vol] 105 mmol/L Normal 98-107 [facility] Comment on above: Performed By: #### 2 4323-8 #### JIMENA Mark ([id number]) [facility] ([facility]) [address] [place] [address] 15372 CO2 [Moles/Vol] 19 mmol/L Low 21-32 [facility] Comment on above: Performed By: #### 2 4323-8 #### JIMENA Mark ([id number]) [facility] ([facility]) [address] [place] [address] 62955 Creatinine [Mass/Vol] 0.77 mg/dL Normal 0.50-1.05 [facility] Comment on above: Performed By: #### 2 4323-8 #### JIMENA Mark ([id number]) [facility] ([facility]) [address] [place] [address] 23489 GFR/1.73 sq M.predicted MDRD (S/P/Bld) [Vol rate/Area] mL/min/{1.73_m2} Normal >60 Comment on above: Result Comment: Calc ulations of estimated GFR are performed using the 2020 CKD-EPI Study Refit equation without the race variable for the IDMS-Traceable creatinine methods. https://jasn.asnjournals.org/content/early//ASN.2020 559216 Performed By: #### 2 4323-8 #### JIMENA Mark ([id number]) [facility] ([facility]) [address] [place] [address] 46489 Glucose [Mass/Vol] 147 mg/dL High 74-99 [facility] Comment on above: Performed By: #### 2 4323-8 #### JIMENA Mark ([id number]) [facility] ([facility]) [address] [place] [address] 92353 Potassium [Moles/Vol] 3.8 mmol/L Normal 3.5-5.3 [facility] Comment on above: Performed By: #### 2 4323-8 #### JIMENA Mark ([id number]) [facility] ([facility]) [address] [place] [address] 45163 Protein [Mass/Vol] 7.3 g/dL Normal 6.4-8.2 [facility] Comment on above: Performed By: #### 2 4323-8 #### JIMENA Mark ([id number]) [facility] ([facility]) [address] [place] [address] 26602 Sodium [Moles/Vol] 138 mmol/L Normal 136-145 [facility] Comment on above: Performed By: #### 2 4323-8 #### JIMENA Mark ([id number]) [facility] ([facility]) [address] [place] [address] 75806 Urea nitrogen [Mass/Vol] 15 mg/dL Normal 6-23 Comment on above: Performed By: #### 2 4323-8 #### JIMENA Mark ([id number]) [facility] ([facility]) [address] [place] [address] 60768 Albumin BCP dye [Mass/Vol] 4.7 g/dL 3.4 - 5.0 g/dL [facility] ALP [Catalytic activity/Vol] 47 U/L 33 - 110 U/L [facility] ALT With P-5'-P [Catalytic activity/Vol] 14 U/L 7 - 45 U/L [facility] Comment on above: Patients treated wit h Sulfasalazine may generate falsely decreased results for ALT. Anion gap [Moles/Vol] 18 mmol/L 10 - 2 0 mmol/L [facility] AST With P-5'-P [Catalytic activity/Vol] 15 U/L 9 - 39 U/L [facility] Bilirubin [Mass/Vol] 0.6 mg/dL 0.0 - 1 .2 mg/dL [facility] Calcium [Mass/Vol] 9.8 mg/dL 8.6 - 10. 3 mg/dL [facility] Chloride [Moles/Vol] 105 mmol/L 98 - 10 7 mmol/L [facility] CO2 [Moles/Vol] 19 mmol/L Low 21 - 32 mmol/L [facility] Creatinine [Mass/Vol] 0.77 mg/dL 0.50 - 1.05 mg/dL [facility] eGFR - PINF [facility] Comment on above: Calculations of lesli mated GFR are performed using the 2020 CKD-EPI Study Refit equation without the race variable for the IDMS-Traceable creatinine methods. https://jasn.asnjournals.org/content//ASN.2020 726130 Glucose [Mass/Vol] 147 mg/dL High 74 - 99 mg/dL [facility] Interpretation and review of laboratory results Abnormal [facility] Potassium [Moles/Vol] 3.8 mmol/L 3.5 - 5.3 mmol/L [facility] Protein [Mass/Vol] 7.3 g/dL 6.4 - 8.2 g/dL [facility] Sodium [Moles/Vol] 138 mmol/L 136 - 145 mmol/L [facility] Urea nitrogen [Mass/Vol] 15 mg/dL 6 - 23 mg/dL [facility] DRUG SCREEN,URINEon 07-20-19 24 Amphetamines Screen Ql (U) Negative Normal Presumptive Negative Comment on above: Order Comment: Drug screen results are presumptive and should not be used to assess compliance with prescribed medication. Contact the performing [facility] to add-on definitive confirmatory testing if [...] phenylpropanolamine, pseudoephedrine, and propranolol. Performed By: #### Kobi BRIONES3 #### JIMENA Mark ([id number]) [facility] ([facility]) [address] [place] [address] Barbiturates Screen Ql (U) Negative Normal Presumptive Negative Comment on above: Order Comment: Drug screen results are presumptive and should not be used to assess compliance with prescribed medication. Contact the performing [facility] laboratory to add-on definitive confirmatory testing if [...] By: #### D RUG3 #### JIMENA Mark ([id number]) [facility] ([facility]) [address] [place] [address] 79508 Benzodiazepines Ql (U) Negative Normal Presu mptive Negative Comment on above: Order Comment: Drug screen results are presumptive and should not be used to assess compliance with prescribed medication. Contact the performing [facility] to add-on definitive confirmatory testing if [...] By: #### D RUG3 #### JIMENA Mark ([id number]) [facility] ([facility]) [address] [place] [address] 65838 Benzoylecgonine Screen Ql (U) Negative Normal Presumptive Negative Comment on above: Order Comment: Drug screen results are presumptive and should not be used to assess compliance with prescribed medication. Contact the performing [facility] to add-on definitive confirmatory testing if [...] By: #### D RUG3 #### JIMENA Mark ([id number]) [facility] ([facility]) [address] [place] [address] 10588 Cannabinoids Screen Ql (U) Positive Abnormal Presumptive Negative Comment on above: Order Comment: Drug screen results are presumptive and should not be used to assess compliance with prescribed medication. Contact the performing [facility] to add-on definitive confirmatory testing if [...] FF LEVEL: 50 NG/ML Performed By: #### Kobi RUG3 #### JIMENA Mark ([id number]) [facility] ([facility]) [address] [place] [address] fentaNYL+Norfentanyl Screen Ql (U) Negative Normal Presumptive Negative Comment on above: Order Comment: Drug screen results are presumptive and should not be used to assess compliance with prescribed medication. Contact the performing [facility] to add-on definitive confirmatory testing if [...] By: #### D RUG3 #### JIMENA Mark ([id number]) [facility] ([facility]) [address] [place] [address] 96073 Methadone Screen Ql (U) Negative Normal Pres umptive Negative Comment on above: Order Comment: Drug screen results are presumptive and should not be used to assess compliance with prescribed medication. Contact the performing [facility] to add-on definitive confirmatory testing if [...] CUTO FF LEVEL: 150 NG/ML The metabolite Z-tsmtb-ksklstojpfdhlt (LAAM) is not detected by this method in concentrations that would be found in the urine of patients on LAAM therapy. Performed By: #### Kobi RUG3 #### JIMENA Mark ([id number]) [facility] ([facility]) [address] [place], [place] [id number] Opiates Screen Ql (U) Negative Normal Presum ptive Negative Comment on above: Order Comment: Drug screen results are presumptive and should not be used to assess compliance with prescribed medication. Contact the performing [facility] to add-on definitive confirmatory testing if [...] Screen, Urine result). Performed By: #### Kobi RUG3 #### JIMENA Mark ([id number]) [facility] ([facility]) [address] [place] [address] 77688 oxyCODONE+oxyMORphone Screen Ql (U) Negative Normal Presumptive Negative Comment on above: Order Comment: Drug screen results are presumptive and should not be used to assess compliance with prescribed medication. Contact the performing [facility] to add-on definitive confirmatory testing if [...] detect both oxycodone and oxymorphone. Performed By: ###Jennifer BIRONES3 #### JIMENA Mark ([id number]) [facility] ([facility]) [address] [place] [address] 88217 Phencyclidine Ql (U) Negative Normal Presump tive Negative Comment on above: Order Comment: Drug screen results are presumptive and should not be used to assess compliance with prescribed medication. Contact the [facility] to add-on definitive confirmatory testing if [...] been reported with dextromethorphan. Performed By: #### Kobi RUG3 #### JIMENA Mark ([id number]) [facility] ([facility]) [address] [place] [address] 10481 Drug Screen, Urineon 024 Amphetamines Screen Ql (U) Negative Presumptive Negative [facility] Comment on above: CUTOFF LEVEL: 500 NG /ML Cross-reactivity has been reported with high concentrations of the following drugs: buproprion, chloroquine, chlorpromazine, ephedrine, mephentermine, fenfluramine, phentermine, phenylpropanolamine, pseudoephedrine, and propranolol. Barbiturates Screen Ql (U) Negative Presumptive Negative [facility] Comment on above: CUTOFF LEVEL: 200 NG /ML Benzodiazepines Ql (U) Negative Presu mptive Negative [facility] Comment on above: CUTOFF LEVEL: 200 NG /ML Benzoylecgonine Screen Ql (U) Negative Presumptive Negative [facility] Comment on above: CUTOFF LEVEL: 150 NG /ML Cannabinoids Screen Ql (U) Positive Abnormal Presumptive Negative [facility] Comment on above: CUTOFF LEVEL: 50 NG/ ML fentaNYL+Norfentanyl Screen Ql (U) Negative Presumptive Negative [facility] Comment on above: CUTOFF LEVEL: 5 NG/M L Interpretation and review of laboratory results Abnormal [facility] Methadone Screen Ql (U) Negative Pres umptive Negative [facility] Comment on above: CUTOFF LEVEL: 150 NG /ML The metabolite O-howav-hmhecxkaufhfjx (LAAM) is not detected by this method in concentrations that would be found in the urine of patients on LAAM therapy. Opiates Screen Ql (U) Negative Presum ptive Negative [facility] Comment on above: CUTOFF LEVEL: 300 NG /ML The opiate screen does not detect fentanyl, meperidine, or tramadol. Oxycodone is not consistently detected (refer to Oxycodone Screen, Urine result). oxyCODONE+oxyMORphone Screen Ql (U) Negative Presumptive Negative [facility] Comment on above: CUTOFF LEVEL: 100 NG /ML This test will accurately detect both oxycodone and oxymorphone. Phencyclidine Ql (U) Negative Presump tive Negative [facility] Comment on above: CUTOFF LEVEL: 25 NG/ ML Cross-reactivity has been reported with dextromethorphan. Drug screen results are presumptive and should not be used to assess compliance with prescribed medication. Contact the performing [facility] laboratory to add-on definitive confirmatory testing if [...] be directed to the laboratory medical directors. [facility] ECG 12-LEADon 07-20-2023 ECG 12-LEAD Ventricular Rate 68 Atrial Rate 67 P-R Interval 110 QRS Duration 126 Q-T Interval 419 QTC Calculation(Bazett) 446 P [place] 82 R [place] 77 T [place] 67 QRS Count 11 Q Onset 249 T Offset 459 QTC Fredericia 437 Diagnosis Sinus rhythm Borderline short AR interval Nonspecific intraventricular conduction delay ST elev, probable normal early repol pattern See ED provider note for full interpretation and clinical correlation Confirmed by Lynsey Luna ([id number]) on 07/28/2023 12:23:14 PM Normal [facility] HCG.beta subunit Qnon 2023 Interpretation and review of laboratory results Normal [facility] Total HCG measuremen t is performed using the Jade [employer]em Access Immunoassay which detects intact HCG and free beta HCG subunit. This test is not indicated for use as a tumor marker. HCG testing is performed using a different test methodology at [facility] than other [facility]. Direct result comparison should only be made within the same method. [facility] Human Chorionic Gonadotropin , Serum Quantitativeon 07-20-2023 HCG.beta subunit Qn NINF [facility] Lactateon 07-20-2023 Lactate [Moles/Vol] 1.4 mmol/L Normal 0.4-2.0 [facility] Comment on above: Order Comment: Venip uncture immediately after or during the administration of Metamizole may lead to falsely low results. Testing should be performed immediately prior to Metamizole dosing. Performed By: #### 2 524-7 #### JIMENA Mark ([id number]) [facility] ([facility]) [address] [place] [address] Lactate [Moles/Vol] 1.4 mmol/L 0.4 - 2. 0 mmol/L [facility] Lactate [Moles/Vol] 2.2 mmol/L High 0.4-2.0 [facility] Comment on above: Order Comment: Venip uncture immediately after or during the administration of Metamizole may lead to falsely low results. Testing should be performed immediately prior to Metamizole dosing. Performed By: #### 2 524-7 #### JIMENA Mark ([id number]) [facility] ([facility]) [address] [place] [address] Lactate [Moles/Vol] 2.2 mmol/L High 0.4 - 2. 0 mmol/L [facility] Lactate [Moles/Vol]on 2023 Interpretation and review of laboratory results Normal [facility] Venipuncture immediately after or during the administration of Metamizole may lead to falsely low results. Testing should be performed immediately prior to Metamizole dosing. [facility] Interpretation and review of laboratory results Abnormal [facility] Venipuncture immediately after or during the administration of Metamizole may lead to falsely low results. Testing should be performed immediately prior to Metamizole dosing. [facility] Lipaseon 07-20-2023 Lipase [Catalytic activity/Vol] 10 U/L 9 - 82 U/L [facility] Lipase [Catalytic activity/V ol]on 07-20-2023 Interpretation and review of laboratory results Normal [facility] Venipuncture immediately after or during the administration of Metamizole may lead to falsely low results. Testing should be performed immediately prior to Metamizole dosing. [facility] Triacylglycerol lipaseon Lipase [Catalytic activity/Vol] 10 U/L Normal 9-82 Comment on above: Order Comment: Venip uncture immediately after or during the administration of Metamizole may lead to falsely low results. Testing should be performed immediately prior to Metamizole dosing. Performed By: #### 3 040-3 #### JIMENA Mark ([id number]) [facility] ([facility]) [address] [place] [address] Tropinin I.cardiac panel Hig h sensitivity methodon 07-20-2023 Interpretation and review of laboratory results Normal [facility] Less than 99th percentile of normal range [...] performed using a different testing methodology at [facility] than at other [facility]. Direct result comparisons should only be made within the same method. [facility] Troponin I, High Sensitivity on 07-20-2023 Tropinin I.cardiac panel High sensitivity method ng/L 0 - 13 ng/L [facility] Troponin I.cardiac panelon 0 07-20-2023 Tropinin I.cardiac panel High sensitivity method <3 Normal 0-13 Comment on above: Order Comment: Venip uncture immediately after or during the administration of Metamizole may lead to falsely low results. Testing should be performed immediately prior to Metamizole dosing. Performed By: #### 2 524-7 #### JIMENA Mark ([id number]) [facility] ([facility]) [address] [place] [address] Urinalysis complete W Reflex Culture panel (U)on 07-20-2023 Appearance (U) Hazy Normal Clear Comment on above: Performed By: #### 5 8077-9 #### JIMENA Mark ([id number]) [facility] ([facility]) [address] [place] [address] Bilirubin (U) [Mass/Vol] Negative Normal NEGATIVE Comment on above: Performed By: #### 5 8077-9 #### JIMENA Mark ([id number]) [facility] ([facility]) [address] [place] [address] Color (U) Yellow Normal Straw, Yellow Comment on above: Performed By: #### 5 8077-9 #### JIMENA Mark ([id number]) [facility] ([facility]) [address] [place] [address] Epithelial cells.squamous Auto (Urine sed) [#/Area] 1-9 (SPARSE) Normal Reference range not established. Comment on above: Performed By: #### 5 8077-9 #### JIMENA Mark ([id number]) [facility] ([facility]) [address] [place] [address] Glucose Auto test strip (U) [Mass/Vol] Negative Normal NEGATIVE Comment on above: Performed By: #### 5 8077-9 #### JIMENA Mark ([id number]) [facility] ([facility]) [address] [place] [address] Ketones (U) [Mass/Vol] 80 (2+) Abnormal NEGATIVE Un [facility] Comment on above: Performed By: #### 5 8077-9 #### JIMENA Mark ([id number]) [facility] ([facility]) [address] [place] [address] Leukocyte esterase Auto test strip Ql (U) Negative Normal NEGATIVE Comment on above: Performed By: #### 5 8077-9 #### JIMENA Mark ([id number]) [facility] ([facility]) [address] [place] [address] Mucus Auto (Urine sed) [#/Area] 4+ /LPF Normal Reference range not established. Comment on above: Performed By: #### 5 8077-9 #### JIMENA Mark ([id number]) [facility] ([facility]) [address] [place] [address] Nitrite Auto test strip Ql (U) Negative Normal NEGATIVE Comment on above: Performed By: #### 5 8077-9 #### JIMENA Mark ([id number]) [facility] ([facility]) [address] [place] [address] pH (U) 9.0 [pH] Normal 5.0, 5.5, 6.0, 6.5, 7.0, 7.5, 8.0 Comment on above: Performed By: #### 5 8077-9 #### JIMENA Mark ([id number]) [facility] ([facility]) [address] [place] [address] Protein (U) [Mass/Vol] >=500 (3+) Normal NEGATIVE [facility] Comment on above: Performed By: #### 5 8077-9 #### JIMENA Mark ([id number]) [facility] ([facility]) [address] [place] [address] RBC (U) [#/Vol] Negative Normal NEGATIVE [facility] Comment on above: Performed By: #### 5 8077-9 #### JIMENA Mark ([id number]) [facility] ([facility]) [address] [place] [address] RBC Auto (Urine sed) [#/Area] 1-2 Normal NONE, 1-2, 3-5 Comment on above: Performed By: #### 5 8077-9 #### JIMENA Mark ([id number]) [facility] ([facility]) [address] [place] [address] Specific gravity (U) [Rel density] 1.025 Normal 1.005-1.035 Comment on above: Performed By: #### 5 8077-9 #### JIMENA Mark ([id number]) [facility] ([facility]) [address] [place] [address] Urobilinogen (U) [Mass/Vol] mg/dL Normal <2.0 Comment on above: Performed By: #### 5 8077-9 #### JIMENA Mark ([id number]) [facility] ([facility]) [address] [place] [address] WBC Auto (Urine sed) [#/Area] 1-5 Normal 1-5, NONE Comment on above: Performed By: #### 5 8077-9 #### JIMENA Mark ([id number]) [facility] ([facility]) [address] [place] [address] Yeast.budding Computer assisted (U) [#/Area] PRESENT Abnormal NONE Comment on above: Performed By: #### 5 8077-9 #### JIMENA BROOKE L ([id number]) [facility] ([facility]) [address] [place] [address] Appearance (U) Hazy Abnormal Clear [facility] Bilirubin (U) [Mass/Vol] Negative NEGATIVE [facility] Color (U) Yellow Straw, Yellow [facility] Epithelial cells.squamous Auto (Urine sed) [#/Area] 1-9 (SPARSE) Reference range not established. /HPF [facility] Glucose Auto test strip (U) [Mass/Vol] Negative NEGATIVE mg/dL [facility] Interpretation and review of laboratory results Abnormal [facility] Ketones (U) [Mass/Vol] 80 (2+) Abnormal NEGAT JAMES mg/dL [facility] Leukocyte esterase Auto test strip Ql (U) Negative NEGATIVE [facility] Mucus Auto (Urine sed) [#/Area] 4+ Reference range not established. /LPF [facility] Nitrite Auto test strip Ql (U) Negative NEGATIVE [facility] pH (U) 9.0 [pH] Abnormal 5.0, 5.5, 6.0, 6.5, 7.0, 7.5, 8.0 [facility] Protein (U) [Mass/Vol] >=500 (3+) Abnormal NEGAT JAMES mg/dL [facility] RBC (U) [#/Vol] Negative NEGATIVE [facility] RBC Auto (Urine sed) [#/Area] 1-2 NONE, 1-2, 3-5 /HPF [facility] Specific gravity (U) [Rel density] 1.025 1.005 - 1.035 [facility] Urobilinogen (U) [Mass/Vol] mg/dL NINF - 2.0 mg/dL [facility] WBC Auto (Urine sed) [#/Area] 1-5 1-5, NONE /HPF [facility] Yeast.budding Computer assisted (U) [#/Area] PRESENT Abnormal NONE /HPF [facility] XR CHEST 1 VIEWon 07-20-2023 XR CHEST 1 VIEW Interpreted By: Salina Stanton, STUDY: XR CHEST 1 VIEW; 07/20/2023 4:05 pm INDICATION: Signs/Symptoms:cp. COMPARISON: None. ACCESSION NUMBER(S): [id number] ORDERING CLINICIAN: ABIODUN OCHOA FINDINGS: Heart is normal in size. There is no consolidation or pleural fluid. The mediastinum and bones are unremarkable. There are bilateral nipple shadows. COMPARISON OF FINDING: IMPRESSION: No acute cardiopulmonary disease. MACRO: none Signed by: Salina Stanton 07/20/2023 4:17 PM Dictation workstation: [id number] [place] [address] XR Chest Single viewon 07-19 No acute cardiopulmonary disease. MACRO: none Signed by: Salina Stanton 07/20/2023 4:17 PM Dictation workstation: [address] MMODAL Interpreted By: Salina Stanton, STUDY: XR CHEST 1 VIEW; 07/20/2023 4:05 pm INDICATION: Signs/Symptoms:cp. COMPARISON: None. ACCESSION NUMBER(S): [id number] ORDERING CLINICIAN: ABIODUN OCHOA FINDINGS: Heart is normal in size. There is no consolidation or pleural fluid. The mediastinum and bones are unremarkable. There are bilateral nipple shadows. COMPARISON OF FINDING: [facility] Salina Stanton MD - 07/20/2023 Interpreted By: Salina Stanton, STUDY: XR CHEST 1 VIEW; 07/20/2023 4:05 pm INDICATION: Signs/Symptoms:cp. COMPARISON: None. ACCESSION NUMBER(S): [id number] ORDERING CLINICIAN: ABIODUN OCHOA FINDINGS: Heart is normal in size. There is no consolidation or pleural fluid. The mediastinum and bones are unremarkable. There are bilateral nipple shadows. COMPARISON OF FINDING: IMPRESSION: No acute cardiopulmonary disease. MACRO: none Signed by: Salina Stanton 07/20/2023 4:17 PM Dictation workstation: [id number] [place] [address] Work Phone: Radiology Study observation (narrative) [facility] Work Phone: XR Chest Single viewOrdered By: Salina Stanton on 07-20-2023 [facility] Work Phone: Coding Summary.on 01-21-2021 Coding Summary. CD:[id number] G h0bWw+PGhlYWQ+YE9ROXG wV36haIMhyF1HO3fIRV1C EDFQPNNYNH6NXG2jmWC4W KgwT1RplaSf ShcsjHZrXK51KWs9PPW4a CdmUEkhbV3rzQBcP9b7Yb DpDY59lR70MWhuDTFnDiU 3LjZpbjsgbWFy J2qpTjZgvVClPzd+PHRhY mxlIHdpZHRoPScxMDAlJy QyvQshLX5eFq9qQYCcBNX vbGxhcHNlOiBj e8lwEWIeAChyAL4kiUqeF 8EmiFP7CBDyq3e7Uh07lJ I+TXUdCTK7yEwlYXgnr96 6YoEna4inXKV8 cUBuETjdZRK2E06mp4O2K JExLPWwFLM3qAO9iF4dzP cnzwmcW4GskWMaWhJ6BIR 1mJVykZ4gqTdo zahseW3yFfj+L22MUP9QX ODRJY6HRhn8H6BkEolrsJ I+WB86ULSgNS33eZZzrIH ot5xeeJh1EyGh DVOgYMI7jBvnTCmif0VfC ECjE24bqXPmb6X6MHOvnV hxfEKwGrGzfSJ5fD7sJVm noxdha6auuhlp Uoswu9xmmb20qQ44X92qQ IjuUZCyBKE8ETHyUOQzyI xdlw5sqH8yHa2+WStlf2d ev7dmwLe1RpOl JRXyuwAxgHxdKDR6n5VzC r66A3SmtLgru0HvXum9rx 52sVCgg0U4gTI9TPlxUEX rcF6gZWcyImN4 PFErDfTyoW68sVPbDRscV y4mbJbuhBgwYJ5rUFJqou suOLKzqE8mFYYdhXMuaCl rTF7vQAHmwmqm r384ReJpZQJ3ZYDhzQIaL 9FohX5mGyWwSWJkEHJdT0 VlaAUqMVjwY698NZorImP 2ITJobwBeV1Gj SHQqhTtySlK7j9O0Xg2Dm 6HzeaibWSP1MMaaBIImXs F2DjDxYyZ0B8OrEak7GTS rmHxfMZ1oZ8Eu EDBiprucqhdeqJP5YAJkB QPynA29lQZhMTefOg2jj7 O3z474EQPsTJFtoE82Kw4 udDogMTBwdCBU gN8msirqi2gjfkqvXiCxV DTyCJx6WPt3IHGzlDykSi NtVCA9HuQ4ICH6nXVzaE5 whWwpdhkiaH0o Oyc+S15eeN8uZVB8APE0q xntGDVmysDdGZ62UL88E7 RyPjwvdGFibGU+PGRpdiB agVydAP5oGtHv z4jbu7UzRSozD0XlPFLjM OkzAwa5AMLwRVO1gKA5aV 8oJHUnNSgyt1Q1cLW7L5G dvxDfoe0cd3ca SLGiMPyxG14mxBHzc9Y8Q KDmrSF8DLHvqTeoXiZziD 93Oyc+RBWgfEink1NxMkj sn0wgl2ukcVj0 NiDzROAswyQnnEupDOH2s 1PxBj51Q26tJMckMRHuDH MwLPInIOTvoQxzqn6xvZ0 wIi8+PGNvbCB3 yJY0bD2qBNQsRpY9MYvbA 715TiAwnIYiAlnkv7cxj6 gbpIa8KjBpTRRjfeVufOy jKLK8w9XdTa66 Y30bIHzuPNGfMHTeYXEpF GManMqcrd1reZ0eYf5+PC 2bl9ayyk91bD43mAJ+PHR fGMQ8qSznDDau EZDfkK2yDWtlDmB0KHIfP xEvzL21wNZkQMunSq8lxL wteBsdHY0fHGJidvrpz95 6RvMte1ofZVTy nDNaRRjgPWU7X10ia0A8N NXbIZAfORW5qHF0rT4avX lnbjogbGVmdDsgdmVydGl bDJoaQObdF635 IHRvcDsnPlBhdGllbnQgT mMaCQk4A6GkKzq4HOVbaM pdOY0ceDRlUNkoNw4kkTs niWbkUB3wAIHl isedr768QyLvn5kcENYnf YRfYRnaBNC3V38ji6P3HF VzXKZwFRS0dGS5lQ4aaDt nbjogbGVmdDsg cnSfcBwgFIbhNUgbE434T HRvcDsnPkJpcnRoIERhdG C4YS00KG28eSOch6J7iEY 0W8HzOKLovsjy aihtwFI1PXZsBKMneY60P q2jsDglQt6fEPTaWHC1NV SkyJNoC9UueK2jCeAlMHX oYMTpY1BgnMYn TNipO604DSpcDjE3XDQuu jAoE6WtAAZjhEwpZeZ7o9 V1Yo6MA5F0SR06TH91sHE iy4W2sXS0S9Sd YQFqrdtzrkzlsPP2AFOqA NVsoH75Ec1dkTasUc4oGB HgCKF1ADVtkUEwQ4HonM0 yOiAjMDAwMDAw V2VbaAFkRAtxQ932AOkrE eQ0VPKefwKyT7WlHGKcwE ypNzX8p6U4Dq4OVHh8DE8 0GA46aNPmq6Z3 vDV1F0RcWUKhtthwyfhzh RE0EFMgEXYheF05Fy3vzT stCn3vOMBhJOI2QHRumIP hK4ZspL3aGfYu VCOhVFCjX1XjmRGoCVmcK 593KVthTjM7CJOpvzMjS7 YqJBRveMmbDkV9f6J6Dg2 YYLGmYG28DNA1 hNM9CZ35JY18S9CiJlclt GFibGU+PHRhYmxlIHdpZH RoPScxMDAlJyBzdHlsZT0 bCb8bMNXuEJSn cPjquJVhHpVfm0pxKMQiP PwnIU4kkZxbW0AysJR8QT Qhy4u0Gt23A57pD1OaoCN +EAQqhKH7cRX1 mQ2cNxYmNhE6XVdwL658G lAisJHlZjzof6woo7wcdQ o4HeG5DNVobmDhcSbjWRE 5p7JiOw34E67w IHdpZHRoPSIxNSUiIHZhb Jyvsj3woT9qGi3+PGNvbC J5cQH5mK4wVfKwLdQ6IXu oF677KaTlqBWr Blwpi5mev8kynZo7FvScY ZIzqsVkhUdpSOT0n0XiRy 69Q6LztFmjz3CpOsy4ph7 9wEBld3Y8pFY5 B9XhHXUvedjwbQZznYmtK U6wMYKhvjjrFIMsbV3qNL QlQ8t6KjBwLiC6VClfI9B zwqM0FZChoNZr CWfpCQQ0D30me0P2MFKmU ZTpFGF2hMZ6pG5fbHwlug ogbGVmdDsgdmVydGljYWw oSVofE030XRQq lIgeABYasQ4uSZSmjRJpr RjvNH1hIKCfbdwkMuGCHK FGRVIsIEVSSUNBIExZTk4 4U0VeUpe7NZYp qAfmPE9uzSKnNNsfJi4bs GtwhFmbDL9pEMWcmazbLT JmdR0sFPChzEZsnNuwUK6 bHHObmtmek310 GzUtSNH6DJLmyYNoR5Rcf A5rYuIaGIYmVGZzA0FklM GgNCtgG833BTzyDjP5ZOH ukxMuO5MgNDOt xLmtAeA2x6T6Zh4aSo5mF p7rHEp1IH04MC52hSQcz5 V4nDK4X9VrATFsclsftqo vbBH9CBIdVHJl mM05fNIsYSbtKd0br3Z2z 154DGJaADNbvE37Vy5qmT ndNFTyaQRPbY7hjkkaa6l vcjogIzAwMDAw MIh3IEf8VKOgbUazAnGaE BO2FsR6MTO1dNFdcX0ijE ajpjzwtI8rPvr+MjYgWWV cmfE9Z8RbYdm0 NYRseDipSL7fnEJmOKffQ i2cnDuqfYnxDJ1pMFIldw jkXXVuuZ4lYFTeyDZquPu yXI0tHGXfcthj l785WvMcGPF8UNAbtHSkN 9GleV4lFvAjQFOrKFFpG1 EdjBAzKRtcJ744WWyeIkE 2TFPdxaHcQ4Sw ZAKbsJdiEjT9l2U8Bs8JX Y6lrUB2U0HhMul0NRFstQ giWG3fiLNpLRirTu0rsQu ucPqgOH8pLZEm qdqeVVAajU3aOZKlwWWlk UbjGT9qBRUtjjtpm009Fs TnGKZ7QVJetTXxB6VdmJ2 yOiAjMDAwMDAw Y6AkuMUvAFglX054TOwpG sO1KTAwsrLsM5ZdOQIygO ptNcO8z4G3Mg7OeTRlWLL oOH58QE40SO03 H4NpAnuyqEYjsBI+PHRhY mxlIHdpZHRoPScxMDAlJy VwpFhjCA6rZq1lONJoPDU vbGxhcHNlOiBj v5ooHUYyBZsqUA0tnNmkU 5BfgDE2YULjp7h1Mn55X8 6dA3FyhSM+HYKqdTJ9lZA 4cA0tMzQfVpF6 SEldT955WiQhaKThChtik 4ati2mqgIa6VxDiTCRcsz CweOlpSJJ9u7HpWz11N29 sIHdpZHRoPSIy IXDjGQNkvNgmuj6ebF7dR i8+UZQctUG5pQF6kD3sSq PfEbC1ZRsgZ024QrYipCW vDkhxF53zK2Qz dXA+BEIsTok4ALRnsUcsA D9alAKuNSwjIx3jSVX8Hc VkSkSnPAurG3PhTPSdijl vnfzwcVD4BEXj WVMczR01Cj7kgImbOw0sR TBuDOS7MPYqiRXiO1GwaK 5xPkSyWVUdBTWwI2QqhBZ xUUhpL017VXgh NfO5YRHzvwMaA0JwLQVkz OeeWxR2j3G7Yd1TrLydtD BhYB7iLfEwYKr6I7FqTvx 9LYNojDhwVR6v eUToSUxaSn1dyWepwHqyJ D6kWFFckwrjv234DeSlh0 xeXTEwuTRrMYmiKNZ1I36 cf5J0SQTsTDJh HLK9dQA5lC1ylYlmtgare GVmdDsgdmVydGljYWwtYW anV512MMXheRtwYfZWMtj 7I9KgAlp2FYBc oXuuVI7edXQyPEwiMf0jc AwlaGvyNF3tQYIkojnsg1 83TpScu5yfABAwwJVyVWp sWQK3Y00gu4J8 LHIjKNQbJJI9dQE2qH9bz GlnbjogbGVmdDsgdmVydG flPNklVZdqQ029IBWhtQg rCl7QNuk5P3El Tut9NZCmyMsfFQ7blTLjC NqiXn3vlTovfWuvBR2tQW Dzyxaxp254NcQiz0omSBZ wcHQgVGltZXM7 S73ys6Q2QDFfEIUyIWN2p DK9iM6uvHrqvwfvlGJpsE gynmPhrJeiMOgsQKvdN96 6IHRvcDsnPlBh eWVyOjwvdGQ+ID49kb62U 5QtEborTol2NUYkDKT9lV J4qF8nUQVuWCkse7S4wAJ 2J9ZuxsCagp2u b2xs (more content not included)... Normal [facility] Coding Summary. [id number] G h0bWw+PGhlYWQ+ZD3VXUA zQ09rwAWnoZ3UL9mOGC4P QBLPSLWLJR3JAL9kcUP2L UzbB5SrzkWs RvmlvHCoVV20QHh1MYO3t OngAAtezD4pdIGxZ9a2Qd VvJF11uM53EEduZBCeZfA 3LjZpbjsgbWFy Q3egWrAvxQMwNij+PHRhY mxlIHdpZHRoPScxMDAlJy GibSlxUO5aPq7rDJHxZHY vbGxhcHNlOiBj z7zjHALyLHsqSW7ekPgbL 6WviFQ0ACEvm2s7Yr91hM I+INMrWXM8eHvwBLuov87 8AsOcp7kqKHT1 rLMfQOyyNFW7V83na1P6Q KGfXOVjVFY7hLN4bB8aaH mfkijvL8KuzZGyOhQ2DLV 9uDCubM2nrBlo qyjpeJ0oVhz+X09CHD3QP EUJGP0UPha5O3NnLgwnlH I+SS11ERUtDA16bLAxfPU wh6jbkYn1SjHi WQPzRKJ2eWgeIZtbh3BuD EZuA94jsGBrm5D3FWOhwB mrhXZbSxIlxYG6dX2pJPo trhxis4rjnkfm Dqytd3nvca55zY27I14rQ WodTYCvGVO0ZWDjHZLoiE xndq4gzO6nIk1+QHdnx9g cc6xxcGj5XlIm AMUvceZgsJytSHD0l2DdE i01X8SonDqkh3BwOxq2ci 74nBOak0U5fTW5JVubQPN hfZ0yLYwyFzP1 OKSjRsDtyH47vXNkZXwaG i8wiYxwqWswQY0tQPDyle xbUGKqvW8iLAIknPFgcAh jBU8nIDBuknqb q801CmXvBSW7KDKjnLRfA 1LkiU4iMgTnTSOiTUFlX6 OpoDQwCVeqQ048MZxpAdI 1QCVqsaIpC5Tq HXVsuSkmDjY0k6J3Mn1Jt 4ZrvhkwZCF9MQxbZJGjCw C5XxPhEwS8Q8FfNtu7NGV vvDrzPB9yU2Xh YUGnoqoxsrfrrHB6MEQxX YSotF77rDMuHJfwPq8tu6 E7e084IBOxHZIoaY94Qe3 udDogMTBwdCBU lR9eukanv5sclzucIvKxE JIhDBt4CSi5ZGDohTmjSu HoBIA8UbM1VCW2fVGvnP9 wgVzmznnghC9o Oyc+G50nmW4cOFC5ACV4z jbiVNUjeyIcUR59YU24R3 RyPjwvdGFibGU+PGRpdiB prQlaAO4pWjXu m6dsz6HmYVdrX6LsOPSsU BkgEvw5KBOzUXC1cEQ8lU 5gXGUtBBbbn8P8nBY0K6B fteMeko5wu8ji OUSsJJduZ36tbBEnw9Y6S GIonOC9EHPcfCkyJoCrvQ 93Oyc+UALcsMpld6VgZnt hb2idj0ilgYs6 VnAyMIOuufVsgRurQLP5n 1BpYe90R43kIAyhTNIuWN XjEERqMRXeqPwupi0nrO3 wIi8+PGNvbCB3 wYL8rE3rUQAxLpQ5LPrwL 503PdKhqICgGdrcg5wfi5 xodFt7PpGzINBwzoUiiSq qPII1f2SyJd13 R04xQNwzEWYgSXQuQTLrO JVpjXzynk8ccH9zFx0+PC 2bf1qdfu46oM63nPV+PHR kFGG2sOlyERue MIWdjE8zYBwvOvR2BHYrS eTtaO19sCOkVBueNe2eaO zezEjlHY8kVDLrvpijl49 0PxPnu3xlBNVb uBRdTLrhYIF1H96sd2G3K YKkQFPiXFP9wOH4uL9ecQ lnbjogbGVmdDsgdmVydGl iRJmuUZvaB955 IHRvcDsnPlBhdGllbnQgT jGfNQs7F5JrFtm0LMAcjI vzPW5vbJGvGXgyTi2ugMy ayWqoUZ2gJHSh yqjdh547DlVvw6rxPFEeo KTvMLduLKF9A39nn8J4ZM AwZPXyNCW4gFJ4tK6mrRo nbjogbGVmdDsg jfBuzUjvUQnoJNcuO451T HRvcDsnPkJpcnRoIERhdG J0FB85BL63gZOgk4C2aCE 6R3OsOVEkmsfn dzcfyEX5VXGdRVQikY00O h7atPjgSb3xMIWvUSA8GS IamBFsU9OdtW3kRuGeHIQ nHGYnG9EbnGBg YOfxC893UXwbAyC9OVWqq zYcT0ZjKIOikPgpPgU5l0 W9Jl4IY6M4LV68SN14oDB lj5J3xSC8J3Vu DVBzlcogkefepJR0MIRkK PRezE15Zx7miQmmKu8fKH NbPCP6JRZzgAKhM5VnfK0 yOiAjMDAwMDAw O9PkkSQuOQxuS251EJlyM gL8YIIoxfOgS1RgQFEqyU srZfS5m2J7Qx4CBVj4HG1 0XP17eMTsm0R1 lIW6G8UaORCwgrvgqlqeu AQ2ZZZdRGGmsO27Ty4lrV nwNd2fGJDxHCK3JHXgvFL nM8XqzD2qUoOa LXPeENJbL9FfiAGzHGvxL 533MUszJeM1XYQitiSzK2 UgXMPouYeqReE2v8S4Dr9 SIHUpPM81QCR2 oFU7YZ79HH10D7MkPlhoz GFibGU+PHRhYmxlIHdpZH RoPScxMDAlJyBzdHlsZT0 fQl7tYJXyAUUe gTpqiXWwWcOgg8qsZAIpB JznVU8xdAvgI4UhpKA1LH Dhg7g0Lm07G36hT0BgbXO +POOpjGT0aHP0 tJ6eNqGuVaS1JVseJ619U zPckCHuHpuct2zwf2zvzH z3LvF2CNGwkjZulHhoHZH 8i6CaCg60F27m IHdpZHRoPSIxNSUiIHZhb Sqrgw1clP0hXx6+PGNvbC Q6rQG4dS3pXjCwIaV6QRl tI209NeNtiZMd Aijln0qkq9ldkWn7YbGyF XYzzxPbyZttIJY9l6SwNk 34F0FejHvet7OrBgt1be9 8xFHki9K3jHA4 H3GaEGZqhraeyINlgJnzW Q8yEFUoktaeQONnnV9rOW TfI5v2NwOaTlY9BPatV9Y epeJ4WUClwTLv TExcPRS7C43ze1I9CQKtO OKhWGO7tUG8iU8jiUblia ogbGVmdDsgdmVydGljYWw mRZcfK842GOOt oWszQDEddZ7mVNCrtIMcv GjiZL7nJTTppjkcIjQBBD FGRVIsIEVSSUNBIExZTk4 1Z9AdNtj0NBAu hHbwDP0umPWaTGdtZh3in MmqmUhuNO9oMSExbfxkAD AkkP3oXYQmeQCioOmuPV0 bRSDtatyca950 HmEtMEC0KGLgoGLtJ7Wtw G5zAgQiQDMsLAInI6BhmU XwPOxvT754UKmcGdX9KQZ jutRuE3ZmNFGp lEwbHeV9b0D9Bf9dPz3qT k8tIUf3UT47EI56pVFfq3 B3hFS6R8LrJPAdccwzaih mrRF3ZRRiXOTt wK86yPKqPCrsTg2oq9F6y 213ADXiRBPavH29Gc4zwV rlAADdmROGxU9zorenu3j vcjogIzAwMDAw PBh1UCx0OGRgqFjvGqTiW BY1CiV3GCN9nHZkuG3qtR fdhylyxO5kCaw+MjYgWWV gvjP0O8KqXoi3 HSDitBcrGK2lhDVaHTxfP z3hbKgyiEafWN9mHZByfr aeJHMyxF8dVJOxcNZwyJs gUS5nHBCrechm c491XoKuWDK2ANPgnBAhB 0TqvU5jChKmSSNyHFXdS8 MpoEObCBpjL299VOufOhI 6TKPlhmNxO5Rb FRJxxYjgTqX8y7B4Sm4TH T5vcRD0Z9PpCdl3FYQirX vhHA2pjZKtASenCe2prXs dnIwrPX4kHFVm bltaROKasE9aDRWncDXzm MylEG2aRBYlrrrzx075Bp SrMKJ9ECPjoESuA0WzjL0 yOiAjMDAwMDAw C9AzrWUjCIbdJ993LTxvU vL9FNKougDxQ6GoMYEewT soBiS7e1L0Zk5FfWQgGKL jRX82QH32NC12 M3RgPrglxDFpjBG+PHRhY mxlIHdpZHRoPScxMDAlJy EfyMzrPC1rKn6uOXQpXYT vbGxhcHNlOiBj s4meMAMzCPupGW7hcQtiN 2DyhLS4ROFcq8l7Aj64S9 0vS7VpwDM+EJYceVC1qEI 6sR6eMjMqSqG7 IYsrS043McRfnYSoWcbnr 4uuu2wedYh7GoItPERtho JadXbtLAE2t0RwGa28B63 sIHdpZHRoPSIy OWFhQEAavSqjsz7fzD9mG i8+OWFqcRN3uEH9oQ6iSk MpDmA0ZKsfT599UvZlkHS dRszbF52vH0Id dXA+ZTElUmn4QGOacJrbN U8isVKxNPzdLg9tJYX5Yx SgOgVyGFsmU6WsMVKlsew hssotgOD5BBAv VRQhgN90Eb7baKgcRq0fI ZQxUPW6TAHzdUHlG1KgnL 9pNgQxCJYbWNWgN9MvnHB xJRbkW266HBsd XkZ5SBXtdhUtR9CkBNOoy NmjFgM4m9C2Bs4ImEhpeN HoRF8uHqRaLHu6A8CxOjp 2IRNzrYxmXC5w wBGbYUnuXl9dfPtvaBnoA B8bSFZymwfrr728LtMye7 pmTIOeyHRzZLaaHSD3Z89 kh1V4FYXfCYGq BZG8wVC2sK7lxDhafecyo GVmdDsgdmVydGljYWwtYW doI329YSVpjCscGeMVPqi 7E7TnVyy6FLEl tUnbEG0vwUOaJEpqMy2ea SiheMacMR4tAULbjksdv4 19XkJwr2hiASKusDXvXWj rLNW1B40kt9R5 EHUdNKNgLUV8wPU3yA2ab GlnbjogbGVmdDsgdmVydG hwYBevAMvfG282BVUmlOs qZo0ETqr2B1Hj Oww0GOArjKxbVG6abFWhR AywLh3veHlwvMejTP2sZS Weurrpt527KxRdc1guBGN wcHQgVGltZXM7 M01wz8P9VQKdYZYvVBX9v RM5pY6caXfjuidwsLFjaC deheXdsWouPEfgGBszL35 6IHRvcDsnPlBh eWVyOjwvdGQ+XL11hj33L 4OeLuwqWzd7FQLfPFC0xA D8eC2lSMQrWRmka0D0iEP 9T0WhdxEqfo2q b2xs (more content not included)... Normal [facility] XR HYSTEROSALPINGOGRAMon XR HYSTEROSALPINGOGRAM * * *Final Report * * * DATE OF EXAM: Jan 20 2021 12:34PM X 5389 - XR HYSTEROSALPINGOGRAM / PROCEDURE REASON: Fertility testing * * * * Physician Interpretation * * * * CLINICAL: Fertility testing TECHNIQUE: A hysterosalpingogram was performed in conjunction with the gynecology service. FINDINGS: The uterus is normal in size and contour. Somewhat irregular appearance of the nondilated tubes. No spillage. IMPRESSION: Please see [employer] ANA[employer]ST report for assessment of real-time findings. Mixing And Dispensing Supervisor: ANTONIETA Transcribe Date/Time: Jan 20 2021 1:37P Dictated by : DAYANNA LEROY MD This examination was interpreted and the report reviewed and electronically signed by: DAYANNA LEROY MD on Jan 20 2021 1:45PM EST [id number] [facility] Rubella IgGon 01-05-2021 Rubella virus IgG Qn (S) 20.80 [IU]/mL Invalid Interpretation Code Immune >0.99 [facility] Comment on above: Result Comment: Non- immune <0.90 Equivocal 0.90 - 0.99 Immune >0.99 Performed at: [address] [id number] PhD Randa Ochoa Performed By: #### 5 [id number] #### [facility] [address] [place] [address] Varic IgGon 01-05-2021 VZV IgG IA Qn (S) 207 Invalid Interpretation Code Immune >165 [facility] Comment on above: Result Comment: Nega tive <135 Equivocal 135 - 165 Positive >165 A positive result generally indicates exposure to the pathogen or administration of specific immunoglobulins, but it is not indication of active infection or stage of disease. Performed at: [facility] [id number] PhD Randa Ochoa Performed By: #### 5 [id number] #### [facility] [address] [place] [address] Consent for Treatmenton Consent for Treatment [id number]#1 .00CD:127 Normal [facility] Consent for Treatment [id number]#1 .00CD:127 Normal [facility] Free T4on 01-03-2021 Free T4 [Mass/Vol] 0.75 ng/dL Normal 0.58-1.64 [facility] Comment on above: Performed By: #### 2 [id number] #### [facility] [address] [place] [address] XbgF4duv 01-03-2021 HbA1c (Bld) [Mass fraction] 5.4 % Normal <=5.9 [facility] Comment on above: Performed By: #### 5 [id number] #### [facility] [address] [place] [address] Physician Orderon 01-03-2021 Physician Order [id number]# 1.00CD:127 Normal [facility] Physician Order [id number]# 1.00CD:127 Normal [facility] Prolactinon 01-03-2021 Prolactin [Mass/Vol] 45.14 ng/mL High 3.34-26.72 [facility] Comment on above: Performed By: #### 5 [id number] #### [facility] [address] [place] [address] TSHon 01-03-2021 TSH Qn 2.09 m[IU]/L Normal 0.34-5.60 [facility] Comment on above: Performed By: #### 2 [id number] #### [facility] [address] [place] [address] Vitamin D 25 Hydroxyon 01-03 25-hydroxyvitamin D3 [Mass/Vol] 58.1 ng/mL Normal 30.0-100.0 [facility] Comment on above: Result Comment: Vit sarabia D deficiency has been defined as a level of serum 25-OH vitamin D less than 20 ng/mL (1,2) by the [place] of Medicine and an Endocrine Society practice guideline. The Endocrine Society further defined vitamin D insufficiency as a level between 21 and 29 ng/mL (2). 1. IOM ([place] of Medicine). 2010. Dietary reference intakes for calcium and D. [place]: The National Academies Press. 2. Carola MF, [place], Donna HERNANDES, et al. Evaluation, treatment, and prevention of vitamin D deficiency: an Endocrine Society clinical practice guideline. JCEM. 2010; 96 (7):1911-30. Performed By: #### 5 [id number], [id number] #### [facility] [address] [place] [address] Coding Summary.on 11-21-2020 Coding Summary. CD:[id number] G h0bWw+PGhlYWQ+ZF0YCUW nY06mlOCnkK4AW4tCCA2U TIRQRFQFXT8KAK4xnBE7K XmfS4YymdCv HtmtiCGgQY93CLe0SEP0o PxzAVksiZ0shVUyW6c3Ee XeKG89tZ82PXfpEDVpJqU 3LjZpbjsgbWFy A6eeSjQwoEOiKpv+PHRhY mxlIHdpZHRoPScxMDAlJy NxtIxrRT1qNg4wHRAhSOM vbGxhcHNlOiBj e5fuLDHzYVrkPA3xjXqhO 1LypJA1BSIqa1i0Ia55vW I+QLNkZYT6rGfbTNzyy35 6LlOkx3mpWZG3 pGZkOHthCRG5Z78ty3F2H DUgHKDnYAA0dDS6nE6baZ qelgttY1ZmkEGzYxA0NMK 6gIOmwO9rdXqd nrxopB1tLgk+Y34KGK8RH KPKKH0HPax7K9GdVuzluP I+CO70HQXiMH47rEKdfXF zo8uyjDv0CqXh JZYxEEZ3lPxsLBzxu2UzY MLpK35psWHhk9Q5LBCxsR einUCfUiWswDJ6lW6mYLd roniio8orgpku Ybnae4koli20uT58D10mF AwfKRVnXQC6BXUdISUxwQ okvz4kxX5aQm0+HNoch9x pj6hbxNz8WiVl AVVqyhVjoApdJGC5l7SsA y85J7LdlOuhj7HcKrw1he 58jRLck6V8mCC5TAavAUK uqP6yTUnoBkM0 WBHrMlYxcO26xCBaIMskD t3pwLgizSeeZK6eRAGjfy gyOTLtrQ6aGDWpaPXfbDg sNU2dBJLxzfvn y118JoOhVYE5RZOpbOZoN 6WbfZ5zXqJwUMKmMSBzG2 KftKLnHEeyW920OXsxStJ 6PQYgeqVlA5Js FRAjuWtiRfE4t9Y2Qc6Za 1PzbfxjWJL1KFwmGSC1Za C7OmPkHdJ6S4SuUuy4RQC dwLeuSS7tY1Vf NHHmnbdstzcmfVZ8TSAvV NKiqZ57qQXgGWajPt7wu6 R2b254YQVvKYQnuR71Vw5 udDogMTBwdCBU sF7qqkqtj2jhzyddUyJyK WKqJJu6NBx9BNHfgXokEe RfAMH4IiM5MGO9pHHnvM3 wcXacyqyrwU3h Oyc+I66nmU7jSLO2RQM3c mcyPITxghZnIH68WD29T8 RyPjwvdGFibGU+PGRpdiB ztUttLK2zYdVp w7pts3RpOAkbO3YhZUDyR IkrHpi3DZSoJFK9oJR5rA 1jCTVoPXrrd7O4dRW0T5M fgdMfsz1kt1zi RBXcHEnnH31msIDil8Z5I VUhyRG0TNHxwDdsAsAafI 93Oyc+JIXpoTeas2AlAri pn5hiv8hxiYc9 IoRnTAHsjcPjsCrzHJS6y 4DmGc75O42dBDqsRNQlPJ AvKMKfSRXhhKrmmv7jtN3 wIi8+PGNvbCB3 sDU7dY2tXBNkYvA9JPqeU 946AsEkrVHqUqmfe6bln6 pdmXh4GzIgAIOtafTpgEr rAAB1c3YyAd63 I96fYMdsMXIlOQXuSHIeP UGdwXqmgn6lpH2lVb2+PC 7gv7pfco40mG93uBY+PHR mKAA3uOraQTbp WZBdiB5gJXkpFeA2AWJhY hElbC97gQOnYEfoMv7izL izlJccGN7sPCUqftohm03 5XrHwc8wuJVDl eLGhNWzrWSO5U53kf6Z6R DTiNTIxART9hAC2fW5daO lnbjogbGVmdDsgdmVydGl bHLhnBTfeY501 IHRvcDsnPlBhdGllbnQgT nBpLVp8H0FuSmz2GHHxiE dyCB7iqKSfHSqlEk3jzWs muZegRT3qDJMq eqqxm459LjFbg7uzVUVye UOaLQdaAFA5M07rr8J3RL QbJLIeHRV0fZX4zO8zfCc nbjogbGVmdDsg ohMvoLuyHFjmNLjeD294L HRvcDsnPkJpcnRoIERhdG J5DO66OO38oAMin1H3jRO 8U8ZnYQJsepfr pgebjAW0XQZlBFQpiN03Z g6utIikLs9lOZSaLCU0SJ DjdLDjD9DzxD3tAfXnFSC wPVBjE3QbrXUs QOngU574BWlzVtH8WWPiu mMoH1NvCFMwoTuqKfG0g9 H1Ou1ML0A4ZM69MS03vSP zq3T4wDB4K7Ce NKWjqraeaqdfeRL2HJKlM EPgaT19Sb1soOuvJq6wZE QoMAU1EREpbUXhX6PjsO9 yOiAjMDAwMDAw V0LytFMxAYvyL745NSmuI oA6JVGkkiWtD0WrYIFssW fwHtU9s6Y4Xx4VNSh7DL7 6UT81vVZrg0V4 jLO1S7KoSBCjzunqivkkf AM9FRLgDBFmwQ20Bk2okN yrJx9dXKJjUDC3VAPyhPZ nL3PlhB6wGiWt KMWuXULtW4RxcNXkYRxmS 889TBvfFeA9YCAfqhZhI4 QrRQOciGkfCcC5q5A5Rn0 HXHMzLF70GJK3 gVK8GE86UC13X4YjOnzth GFibGU+PHRhYmxlIHdpZH RoPScxMDAlJyBzdHlsZT0 kSv0uGISkTMLo pCzdzSGpGcLoe8huMUTzD GbzNI7fkBafH4BtiDV0OS Pze0e3Ex06X65nH2QgtVD +YXFksKS3wOP9 lV6nUxMlBeD4DXvkF194T jGhlOSaNxged0zyq3lklD e5DqK0GIMqktBqkAgtLPZ 7y8ExXo37R58j IHdpZHRoPSIxNSUiIHZhb Zxivb7awB6hEg0+PGNvbC A1zKL4tY1dIyCqIeY2DRe lS946KoEhdIVm Iiual4zro4xawHv0YqQuX XBavaGudUmbLXB2k6PyJz 81B1TfyYerq3ArPhp4wb4 6aJNnq6N9gVL9 P8AaZVKxsigpbMVekSgyT U3hTWYpvgdmXGGzbJ1yVJ YjI3l3UoHwTyV5WJdzG7U oepQ4GHDhwNOt WAeyKMA6J94ja6W3LWDuZ LQwMNY2tDM2zB7lkAiqwq ogbGVmdDsgdmVydGljYWw kIVebM292YABp yEtrHJCwdC6iZTDflHZab CelHW1pHLKhexsdEiDOXK FGRVIsIEVSSUNBIExZTk4 8E7ZwMuu0SAAr wRfxPP1vvVYjSUxnBl1bh HgotAlbMC9mOVWpztrhRF CyaG7zFYWpcNPxtMxjRI6 tYPYwgammo898 TpItXXG2INEkeUIjZ5Snl R8lOtDgCWOgBKNiQ3QcgF KfRRmvJ531OHmcQvH4IAM hspJxE5SrUSBv xLhuHoK7m9V3Vo1gWl4jG f8oQRc0UK76XO55uHWbv2 B8yXF1V6VdISAjyfhxujs hcEU3QBZbOXSn zN66mGVlSChlVh8ab0S0z 306XSNzAQWofN83Tw9nvI ubHFWaqIPSvZ7bcnkrr2k vcjogIzAwMDAw CYf2RMn2FODdjGraVwXuC BR4DyJ9VFB0mSHxjY5raQ vflmsqdM2oEyb+MjYgWWV djaL6B5HpTci2 BZEefIhpHW4ejXJcGTzoU d0cvTpfkFbpQJ4iHFKgkc tnNPXtzM2mWKScpAUvaZx aUW9bFPFpkjsh j901XzNjVWK8YAHzuJDvK 9SzjH5iHgJiCHClCCIuA4 GpqRMhURmpC666PQjsMsK 1LXZewpCpT0Dw ZGNqsVcuFxD8w0O6Nx1ID A7iaBK3O9XjCyt6WYOiiN paPR3jzXImFUhmQw0kjSc ryPzjTB2cHYHo rnbaWULiqU7wLNBnkMWgu AkgYV6yDHZujnqnv019Qw XbTOE4FLAlbZYlE0RgpP7 yOiAjMDAwMDAw A7FjlTDvQDmpY839YQznZ jU2NTCpjcOgG3FiOSXuxO spRzQ8p7H8Yn6JVVHwGYX whHAnZqY0Y8Zx PjwvdHI+LM08RSSfZN80z SOhyCPpb9nbxRm9PpQiTT FaLGA6uDhrTQfxd2RlBZL nG94eoMNgq6A7 GEMvaDxdaFQrCgXdnOO8x Y4dKPthtewfd1rtgzmdCi jcy8msig98tP16H57vZHz pZHRoPSIzMCUi PKEzqPlhsx7bzT7aOr1+P FQnpJO1yIA2sM1jSkZjAp E2RMdsG477XqHlxAVzJyf gr1rup7crrEs4 SzEyGYNkviAvlYbuCKU5b 1RlMl12K12zLBrlOZNzSS UgLBVtJDMrvYcebc2vhS7 wIi8+RC7ae7vy yo47uT62gTN+TYMkHKQ4u DnaBRrcZEHjwR6eEWfhRd H3PGKrBcVijG11fYLjDYi kQg0laObssSol IY7eTPIymhwbf525NeFyv 4dhAEQpiYCxJCfyNQY7D7 5jh2T2OYMoUDIfANQ3gTO 4qG2wnHfzebsr bGVmdDsgdmVydGljYWwtY RdyO106ETOjzYkhElYoqH WnU8doiiVMHL6uRntqwVD +YWTnKCN9ePew FLunIWOinC0dZENmE5w9Z vHvQoC4GOutH1AbydU6HO BahGJqZDYcfMLPsZ7pvan ks3kiwtbjBiDr WJCxWPt6HFw1JGNiaDtfM vPnNLG9EmF7GKE6gKFcjT 3nnNsuakzdmF7bKas+Rkl OOjwvdGQ+PHRk NGN2aGosONjyTIYfyM5uX PQxN9g2NgHwYzJ9UUqkI2 CccvY4EWVfyGTqJZXyzIM YsD8btagbd7dx cxbbTaKqUCGyZEp8VXh6W NRllAuuJqAiWYW3BlF5PA B2xNDxyK8kyMuhimevhB3 wOyc+TVJOOjwv dGQ+PQXzUZI1nEoiQLxvB KCakF6uHCBfQ9y8NaHgOy V2AKzoV9AhgpL8ZQZfdUM vOPOmzRLNbG3a taeqb6tqfpprVpPvLMLmC Ro8PIw3WRDpiCmpHzKoET J2JhW8LQG1qFRxnJ0tfXg vhgvutZ2eFgg+ YBI2YPE0CG63QI79J9AzB jwvdGFibGU+PHRhYmxlIH dpZHRoPScxMDAlJyBzdHl gAI1iKi3cHRCt LWNv (more content not included)... Normal [facility] COVID-19 ([facility])on 11-05-2020 SARS-CoV-2 (COVID-19) RNA REEMA+probe Ql (Unsp spec) Not detected Normal Not Detected [facility] Comment on above: Result Comment: This test result should be correlated with clinical presentations and medical history by a healthcare provider to determine its clinical significance. This assay was performed by a reverse transcriptase real-time polymerase chain reaction (rt PCR) method on the [employer] system. This test has been authorized only [...] or revoked sooner. Performed By: #### 2 [id number] #### [facility] [address] [place] [address] SARS-CoV-2 (COVID-19) RNA REEMA+probe Ql (Unsp spec) Pass Normal Pass [facility] Comment on above: Performed By: #### 2 [id number] #### [facility] [address] [place] [address] Specimen source Nom (Unsp spec) Nasal Normal [facility] Comment on above: Performed By: #### 2 [id number] #### [facility] [address] [place] [address] Consent for Treatmenton Consent for Treatment [id number]#1 .00CD:127 Normal [facility] COVID-19 ([facility])on 11-02-2020 Employed in Healthcare Unknown Normal [facility] Comment on above: Performed By: #### 2 [id number] #### [facility] [address] [place] [address] First Test Unknown Normal [facility] Comment on above: Performed By: #### 2 [id number] #### [facility] [address] [place] [address] Hospitalized? NO Normal [facility] Comment on above: Performed By: #### 2 [id number] #### [facility] [address] [place] [address] ICU NO Normal [facility] Comment on above: Performed By: #### 2 [id number] #### [facility] [address] [place] [address] ? Unknown Normal [facility] Comment on above: Performed By: #### 2 [id number] #### [facility] [address] [place] [address] Resides in a Congregate Care Setting Unknown Normal [facility] Comment on above: Performed By: #### 2 [id number] #### [facility] [address] [place] [address] Symptomatic as defined by CDC YES Normal [facility] Comment on above: Performed By: #### 2 [id number] #### [facility] [address] [place] [address] Physician Orderon 08-27-2020 Physician Order [id number] [id number]:127 Normal [facility] URon 03-22-2020 , QUAL Negative Normal NEGATIVE [facility] Comment on above: Performed By: #### P REGU #### [facility] [address] [place], [place] [address] Juany Mccarthy Covid-19 PCR (CVDTBH)on 02-02 Covid-19 PCR DETECTED Abnormal NOT DETECTED [facility] Comment on above: Result Comment: This test is not yet approved or cleared by the [place] FDA. When there are no FDA-approved or cleared tests available, and other criteria are met, FDA can make tests available under an emergency access mechanism called an Emergency Use Authorization (EUA). The EUA for this test is supported by the [employer] of Health and Human Service's (HHS's) declaration [...] used). Performed By: #### C VDTB #### [facility] [address], [place] [address] Juany Mccarthy EUA Statement SEE BELOW Normal [facility] Comment on above: Result Comment: This test is not yet approved or cleared by the [place] FDA. When there are no FDA-approved or cleared tests available, and other criteria are met, FDA can make tests available under an emergency access mechanism called an Emergency Use Authorization (EUA). The EUA for this test is supported by the [place] of Health and Human Service?s (HHS?s) declaration [...] consistent with SARS-CoV-2. Performed By: #### C VDTB #### [facility] [address], [place] [address] Juany Mccarthy Vital Signs Date Time Vital Sign Value Performing Clinician Facility 07-20-2023 18:58-0400 Body temperature 98.49 [degF] Ousmane Danielson MD Work Phone: [facility] 07-20-2023 18:58-0400 Diastolic blood pressure 83 mm[Hg] Ousmane Danielson MD Work Phone: [facility] 07-20-2023 18:58-0400 Heart rate 52 /min Ousmane Danielson MD Work Phone: [facility] 07-20-2023 18:58-0400 Respiratory rate 18 /min Ousmane Danielson MD Work Phone: [facility] 07-20-2023 18:58-0400 SaO2% (BldA) [Mass fraction] 98 % Ousmane Danielson MD Work Phone: [facility] 07-20-2023 18:58-0400 Systolic blood pressure 135 mm[Hg] Ousmane Danielson MD Work Phone: [facility] 07-20-2023 13:40-0400 Body height 167.6 cm Ousmane Danielson MD Work Phone: [facility] 07-20-2023 13:40-0400 Body mass index (BMI) [Ratio] 19.05 kg/m2 Ousmane Danielson MD Work Phone: [facility] 07-20-2023 13:40-0400 Body weight 53.52 kg Ousmane Danielson MD Work Phone: [facility] Encounters Encounter Date Encounter Type Care Provider Facility Start: 09-13-2023 ambulatory Carolyne Edmonds Facility :[facility] Start: 2023 ambulatory Carolyne Edmonds Facility:Toya Quinones Start: 08-23-2023 End: 08-23-2023 ambulatory CAROLYNE EDMONDS Not Available Start: 08-14-2023 Telephone encounter Elton Hand MD Work Phone: Endocrinology Comment on above: Results Start: 07-26-2023 End: 07-26-2023 ambulatory CAROLYNE EDMONDS Not Available Start: 07-20-2023 End: 07-20-2023 Emergency department patient visit OUSMANE DANIELSON Start: 07-20-2023 End: 07-20-2023 Emergency department patient visit Ousmane Danielson MD Work Phone: [facility] Comment on above: Nausea and vomiting, unspecified vomiting type (Primary Dx); Gastritis, presence of bleeding unspecified, unspecified chronicity, unspecified gastritis type Start: 06-13-2023 End: 06-13-2023 [facility] Elton Cummings MD Work Phone: Endocrinology Comment on above: Prolactinoma (HCC) ( Primary Dx); 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HCC); Elevated prolactin level Start: 05-24-2023 End: 05-24-2023 ambulatory CAROLYNE EDMNODS Not Available Start: 03-19-2023 End: 03-19-2023 ambulatory MARZENA CHRYSTAL Not Available Start: 02-22-2023 End: 02-22-2023 ambulatory CAROLYNE EDMONDS Not Available Start: 03-22-2020 End: 03-22-2020 Patient encounter procedure YASMIN KARAUGIE Facility:[facility] Start: 03-03-2020 Encounter for preprocedural laboratory examination YASMIN MARTINEZ [facility] Start: 02-25-2020 Encounter for other preprocedural examination YASMIN MARTINEZ [facility] Start: 02-23-2020 End: 02-23-2020 Patient encounter procedure YASMIN ARELYAUGIE Facility:[facility] Start: 02-20-2020 End: 02-20-2020 Patient encounter procedure YASMIN KARAUGIE Facility:[facility] Start: 02-16-2020 End: 02-17-2020 Patient encounter procedure YASMIN KARAUGIE Facility:[facility] for [facility]cedural laboratory examination YASMIN MARTINEZ [facility] Procedures Date Procedure Procedure Detail Performing Clinician Start: 07-20-2023 CT CHEST ABDOMEN PEL VIS W IV CONTRAST OUSMANE DANIELSON Start: 07-20-2023 Lactate [Moles/volum e] in Serum or Plasma OUSMANE DANIELSON Start: 07-20-2023 XR CHEST 1 VIEW OUSMANE PENA Start: 07-20-2023 DRUG SCREEN,URINE OUSMANE DANIELSON Start: 07-20-2023 EXTRA URINE DORAN TUBE J OSEF LOWE Start: 07-20-2023 URINALYSIS MICROSCOP IC WITH REFLEX CULTURE OUSMANE DANIELSON Start: 07-20-2023 URINALYSIS WITH REFL EX [facility] Start: 07-[facility]-2023 Ct thorax w/contrast material Abiodun Ochoa PA-C Work Phone: Start: 07-20-2023 CBC W Auto Different ial panel - Blood [facility] Start: 07-20-2023 Comprehensive metabo lic 2000 panel - Serum or Plasma [facility] Start: 07-20-2023 HUMAN CHORIONIC GONADOTROPIN, SERUM QUANTITATIVE [facility] Start: 07-20-2023 Lactate [Moles/volum e] in Serum or Plasma [facility] Start: 07-20-2023 Lipase [Enzymatic activity/volume] in Serum or Plasma [facility] Start: 07-20-2023 TROPONIN I, HIGH SENSITIVITY [facility] Start: 07-20-2023 ECG 12-LEAD [facility] Start: 07-20-2023 INSERT PERIPHERAL IV RA [facility] Start: 07-20-2023 Assay of lactate Abiodun Ochoa PA-C Work Phone: Start: 07-20-2023 Radiologic exam ches t single view Abiodun CONDONC Work Phone: Start: 07-20-2023 Drug tst prsmv instr mnt chem analyzers pr date Abiodun CONDONC Work Phone: Start: 07-20-2023 Urinalysis complete W Reflex Culture panel - Urine Abiodun CONDONC Work Phone: Start: 07-20-2023 Urnls dip stick/tabl et reagent auto microscopy Abiodun CONDONC Work Phone: Start: 07-20-2023 Comprehensive metabo lic panel Abiodun CONDONC Work Phone: Start: 07-20-2023 Ecg routine ecg w/le ast 12 lds trcg only w/o i&r Abiodun CONDONC Work Phone: Plan of Treatment Date Care Activity Detail Author Start: 2044 Zoster Vaccines (1 of 2) Zoste r Vaccines (1 of 2) [facility] Start: 11-04-2023 Influenza vaccination Influenz a Vaccine (Season Ended) [facility] Start: 07-11-2023 End: 10-10-2023 Corticotropin [Mass/volume] in Plasma ACTH BLD Lab Routine 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[facility]) Expected: 07/11/2023, Expires: 10/10/2023 [facility] Comment on above: Expected: 07/11/2023 , Expires: 10/10/2023 Start: 07-11-2023 End: 10-10-2023 Cortisol [Mass/volume] in Serum or Plasma CORTISOL, SERUM Lab Routine 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[facility]) Expected: 07/11/2023, Expires: 10/10/2023 [facility] Comment on above: Expected: 07/11/2023 , Expires: 10/10/2023 Start: 07-11-2023 End: 10-10-2023 Estradiol (E2) [Mass/volume] in Serum or Plasma ESTRADIOL-17B BLD Lab Routine 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[facility]) Expected: 07/11/2023, Expires: 10/10/2023 [facility] Comment on above: Expected: 07/11/2023 , Expires: 10/10/2023 Start: 07-11-2023 End: 10-10-2023 Follitropin [Units/volume] in Serum or Plasma FOLLICLE STIMULATING HORMONE Lab Routine 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[facility]) Expected: 07/11/2023, Expires: 10/10/2023 [facility] Comment on above: Expected: 07/11/2023 , Expires: 10/10/2023 Start: 07-11-2023 End: 10-10-2023 INSULIN LIK GR FAC I INSULIN LIK GR FAC I Lab Routine 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[facility]) Expected: 07/11/2023, Expires: 10/10/2023 [facility] Comment on above: Expected: 07/11/2023 , Expires: 10/10/2023 Start: 07-11-2023 End: 10-10-2023 Lutropin [Units/volume] in Serum or Plasma LUTEINIZING HORMONE Lab Routine 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[facility]) Expected: 07/11/2023, Expires: 10/10/2023 [facility] Comment on above: Expected: 07/11/2023 , Expires: 10/10/2023 Start: 07-11-2023 End: 08-09-2024 MR Pituitary and Sella turcica WO and W contrast IV MRI PITUITARY WO/W IVCON Radiology Routine 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[facility]) Expected: 07/11/2023, Expires: 08/09/2024 [facility] Work Phone: Comment on above: Expected: 07/11/2023 , Expires: 08/09/2024 Start: 07-11-2023 End: 10-10-2023 Prolactin [Mass/volume] in Serum or Plasma PROLACTIN Lab Routine 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[facility]) Expected: 07/11/2023, Expires: 10/10/2023 [facility] Comment on above: Expected: 07/11/2023 , Expires: 10/10/2023 Start: 07-11-2023 End: 10-10-2023 Somatostatin [Mass/volume] in Plasma GROWTH HORMONE Lab Routine 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[facility]) Expected: 07/11/2023, Expires: 10/10/2023 [facility] Comment on above: Expected: 07/11/2023 , Expires: 10/10/2023 Start: 07-11-2023 End: 10-10-2023 Thyrotropin [Units/volume] in Serum or Plasma THYROID STIMULATING HORMONE Lab Routine 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[facility]) Expected: 07/11/2023, Expires: 10/10/2023 [facility] Comment on above: Expected: 07/11/2023 , Expires: 10/10/2023 Start: 07-11-2023 End: 10-10-2023 Thyroxine (T4) free [Mass/volume] in Serum or Plasma T4 FREE/FREE THYROXINE Lab Routine 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[facility]) Expected: 07/11/2023, Expires: 10/10/2023 [facility] Comment on above: Expected: 07/11/2023 , Expires: 10/10/2023 Start: 03-05-2023 Behavioral Health Screening Behavioral Health Screening [facility] Start: 11-03-2022 Covid-19 Vaccine () Covid-19 Vaccine () [facility] Start: 05-29-2018 DTaP/Tdap/Td Vaccine s (3 - Td or Tdap) DTaP/Tdap/Td Vaccines (3 - Td or Tdap) [facility] Start: 05-29-2018 Urine microalbumin profile DTaP,Tdap,Td Vaccine (3 - Td or Tdap) [facility] Start: 08-30-2015 Screening for malign ant neoplasm of cervix [facility] Start: 07-13-2014 Hepatitis B Vaccine (3 of 3 - 19+ 3-dose series) Hepatitis B Vaccine (3 of 3 - 19+ 3-dose series) [facility] Start: 07-13-2014 Hepatitis B Vaccines (3 of 3 - 19+ 3-dose series) Hepatitis B Vaccines (3 of 3 - 19+ 3-dose series) [facility] Start: 05-12-2014 Hepatitis A Vaccines (2 of 2 - 2-dose series) Hepatitis A Vaccines (2 of 2 - 2-dose series) [facility] Start: 2012 Hepatitis C screening Hepatitis C Sc reening [facility] Start: 2012 HIV screening HIV Screening [facility] Start: 05-18-2010 Varicella vaccination Varicell a Vaccines (2 of 2 - 13+ 2-dose series) [facility] Start: 2000 Pneumococcal Vaccine : Pediatrics (0 to 5 Years) and At-Risk Patients (6 to 64 Years) (1 of 2 - PCV) Pneumococcal Vaccine: Pediatrics (0 to 5 Years) and At-Risk Patients (6 to 64 Years) (1 of 2 - PCV) [facility] Start: 07-06-1999 IPV Vaccines (2 of 3 - 4-dose series) IPV Vaccines (2 of 3 - 4-dose series) [facility] Start: 1994 HIV screening HIV Screening [facility] Start: 1994 Lipid panel Lipid Panel [facility] Start: 1994 Yearly Adult Physical Yearly Adult P hysical [facility] ECG 12 lead ECG 12 lead ECG STAT 07/20/2023 2:57 PM EDT [facility] Work Phone: End: 07-20-2023 Extra Urine [facility] Work Phone: Comment on above: Once for 1 Occurrenc es starting 07/20/2023 until 07/20/2023 End: 07-20-2023 Urinalysis complete W Reflex Culture panel - Urine [facility] Work Phone: Comment on above: Once (Lab) for 1 Occ urrences starting 07/20/2023 until 07/20/2023 Immunizations Immunization Date Immunization Notes Care Provider Felicitas chase 12-06-2015 influenza virus vaccine, unspecified formulation Elton Cummings MD Work Phone: [facility] 11-12-2013 hepatitis A and hepatitis B vaccine Ousmane Danielson MD Work Phone: [facility] Work Phone: 04-20-2010 varicella virus vaccine Jeovanny Danielson MD Work Phone: [facility] Work Phone: 06-08-1999 poliovirus vaccine, unspecified formulation Ousmane Danielson MD Work Phone: [facility] Work Phone: Payers Date Payer Category Payer Unknown [id number] 2019 Unknown [id number] 1994 Unknown [id number] 2.16.84 [id number] 1994 Unknown [id number] 2.16.84 0.1.628129.3.579.2.593 1994 Unknown [id number] 2.16.84 0.1.243833.3.579.2.593 1994 Unknown [id number] 2.16.84 0.1.230985.3.579.2.593 1994 Unknown [id number] 2.16.8 40.1.824076.3.579.2.1243 1994 Unknown [id number] 2.16.84 0.1.244253.3.579.2.1259 1994 Unknown [id number] 2.16.84 0.1.683726.3.579.2.1259 1994 Unknown [id number] 2.16.84 0.1.024596.3.579.2.1259 1994 Unknown [id number] 2.16.84 0.1.957440.3.579.2.1259 1994 Unknown [id number] 2.16.840 .1.866768.3.579.2.1259 1994 Unknown [id number] 2.16.8 40.1.740147.3.579.2.727 1994 Unknown [id number] 2.16.8 40.1.461258.3.579.2.727 1959 Unknown [id number] 1959 Unknown [id number] 1959 Unknown [id number] Social History Date Type Detail Facility Tobacco smoking stat [facility] Tobacco smoking consumption unknown [facility] Start: 06-13-2023 History of Social function [facility] Start: 06-13-2023 Area Deprivation Index [facility] National Score (1-10 0), lower number is lower risk 85 [facility] Start: 1995 Sex Assigned At Not on file C [facility] Start: 07-10-2023 End: 07-20-2023 Exposure to SARS-CoV-2 (event) Not sure [facility] Work Phone: Telephone encounter Note 08-14-2023 Telephone Encounter - Santiago Salcedo MA - 08/14/2023 11:08 AM EDT Note Date & Type Note Facility 08-14-2023 Telephone encount er Note Received MRI results completed 08/02/2023, scanned to chart Santiago Salcedo Claims Vice President II Endocrinology & Metabolism [facility] F20 & X20 [facility] Note 08-14-2023 Telephone Encounter - Santiago Salcedo MA - 08/14/2023 11:08 AM EDT Note Date & Type Note Facility 08-14-2023 Miscellaneous Notes Formattin g of this note might be different from the original. Received MRI results completed 08/02/2023, scanned to chart Santiago Salcedo Claims Vice President II Endocrinology & Metabolism [facility] F20 & X20 documented in this encounter [facility] Reason for referral (narrative) 07-20-2023 Consultation (Routine) - Authorized Note Date & Type Note Facility 07-20-2023 Reason for referr al (narrative) Specialty Diagnoses / Procedures Referred By Niki villeda Referred To Contact Gastroenterology Abiodun Ochoa PA-C [address] [facility] [address] [place] [address] Do [id number] Gastro1 [address] [facility] [address] [place] [address] Referral ID Status Reason Start Date Expiration Date Visits Requested Visits Authorized [id number] Authorized Specialty Services Required 07/20/2023 07/19/2024 1 1 [facility] Work Phone: Progress note 06-13-2023 Note Date & Type Note Facility 06-13-2023 Note HNO ID: [id number] Author: ELTON CUMMINGS MD Service: ? Author Type: Physician Type: Progress Notes Filed: 08/23/2023 09:54 Note Text: Endocrinology/Initial Pituitary Assessment Note: History of Present Illness: Ms. Sue St is a 27 year old female coming today for evaluation of elevated prolactin Referred By SELF She had noted bilateral expressible galactorrhea that [...] laboratory results: Operative Report: Pathology: Imaging: ASSESSMENT/PLAN: 27-year-old female here for elevated prolactin, history of pituitary microadenoma. It is difficult to differentiate between possible etiologies of elevated prolactin as she has nipple rings on both nipples which she is not going to remove, neither can she be taken off her medications for bipolar and ADHD. The discharge is intermittent and. Very but mostly can occur every month Plan: MRI PITUITARY WO/W IVCON, iv contrast (will be provided with radiology test), ACTH BLD, CORTISOL, SERUM, THYROID STIMULATING HORMONE, T4 FREE/FREE THYROXINE, PROLACTIN, INSULIN LIK GR FAC I, GROWTH HORMONE, FOLLICLE STIMULATING HORMONE, LUTEINIZING HORMONE, ESTRADIOL-17B BLD Today I discussed with her that we would be unable to determine the etiology of the elevated prolactin if she cannot remove her nipple rings or come off her medications. However, we can make sure that she does not have a large pituitary tumor by doing an MRI. The goal of treatment of elevated prolactin, is to restore regular monthly periods and stop galactorrhea. Unless we can remove the confounding factors of nipple rings and medications then I do not recommend medical treatment to normalize the prolactin as that will be counterproductive Elton Cummings MD., F.A.C.E. DATE of SERVICE: June 13, 2023 TIME of SERVICE: 10:12 AM [facility] History of Present illness Narrative 06-13-2023 [...] SERVICE: 10:12 AM documented in this encounter [facility] Procedure note 01-20-2021 Note Date & Type Note Facility 01-20-2021 Note HNO ID: [id number] Author: Renetta Beltran MD Service: Reproductive Endocrinology [...] Renetta Beltran M.D. Reproductive Endocrinology and Infertility [facility] Progress note 01-20-2021 Note Date & Type Note Facility 01-20-2021 Note HNO ID: [id number] Author: RT Juan(R) Service: Radiology Author Type: [...] Davison, RT(R) January 20, 2021 12:[address] [facility] Evaluation note Note Date & Type Note Facility Evaluation note Diagnosis Prolactinoma (HCC)- Primary Benign neoplasm of pituitary gland and craniopharyngeal duct (pouch) 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HCC) Unspecified disorder of the pituitary gland and its hypothalamic control Elevated prolactin level Unspecified endocrine disorder documented in this encounter [facility] Evaluation note Note Date & Type Note Facility Evaluation note Diagnosis Nausea and vomiting, unspecified vomiting type- Primary Gastritis, presence of bleeding unspecified, unspecified chronicity, unspecified gastritis type documented in this encounter [facility] Work Phone: Hospital Discharge instructions Attachments Note Date & Type Note Facility Hospital Discharge instructions The following attachments cannot be sent through Care Everywhere.Gastritis ED ([place])Nausea and Vomiting, Adult ED ([place])Cannabis hyperemesis syndrome ([place])documented in this encounter [facility] Work Phone: Summary Purpose Family History No [...] STEM W/O W/CONTRAST MATERIAL Elton Cummings MD [address] [place] [address] [place] [address] Referral ID Status Reason Start Date Expiration Date Visits Requested Visits Authorized [id number] Pending Review Auto-Generat ed Referral 07/11/2023 08/09/2024 1 1 Additional Source Comments INFORMATION SOURCE (unrecogn ized section and content) DATE CREATED AUTHOR 04/15/2020 [facility] DATE CREATED AUTHOR AUTHOR'S ORGANIZ ATION 01/22/2021 [facility] DATE CREATED AUTHOR AUTHOR'S ORGANIZ ATION 01/22/2021 [facility] DATE CREATED AUTHOR AUTHOR'S ORGANIZ ATION 07/26/2023 [facility] DATE CREATED AUTHOR AUTHOR'S ORGANIZ ATION 07/30/2023 [facility] DATE CREATED AUTHOR AUTHOR'S ORGANIZ ATION 08/24/2023 [facility] DATE CREATED AUTHOR AUTHOR'S ORGANIZ ATION 08/25/2023 [facility] dical [facility] DATE CREATED AUTHOR AUTHOR'S ORGANIZ ATION 08/30/2023 [facility] Source Comments (unrecognize d section and content) In the event this informatio n is protected by the Federal Confidentiality of Alcohol and Drug Abuse Patient Records regulations: The Federal rules restrict any use of the information to criminally investigate or prosecute any alcohol or drug abuse patient.[facility] event this information is protected by the Federal Confidentiality of Alcohol and Drug Abuse Patient Records regulations: The Federal rules restrict any use of the information to criminally investigate or prosecute any alcohol or drug abuse patient.[facility] Reason for Visit (unrecogniz ed section and content) Reason Comments Pituitary Problem Reason Comments n/v. 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 [facility] [employer] [facility]. provides no warranty or guarantee of the accuracy or completeness of information in this document.
[2023-09-09 07:07] LABS: Progesterone 10.2 ng/mL (.)
== END 2023-09-07 16:00 | disposition home or self-care (01) ==
LOC: LAB 16:02
PROVIDERS: PCP Family Medicine; Visit Provider Obstetrics & Gynecology
DX: N97.0 Female infertility associated with anovulation (principal); N92.1 Excessive and frequent menstruation with irregular cycle; N83.9 Noninflammatory disorder of ovary, fallopian tube and broad ligament, unspecified
CPT/HCPCS: 36415; 84144

== ENCOUNTER 2023-10-10 16:33 | Outpatient (OUT) | payer BC, SELFPAY ==
--- OUTSIDE RECORDS SUMMARY | 2023-10-10 16:41 | XMS_ITS | CCD ---
Author Organization [facility] Inform ion [facility] Care Team Providers Care Elementary Vocal Music Teacher Name Role Phone YASMIN MARTINEZ Consulting Unavailable CAROLYNE EDMONDS Primary Care Unavailable YASMIN MARTINEZ Admitting Unavailable KARILDEFONSOKYASMIN Attending Unavailable GIGI COBB Consulting Unavailable KARASIKYASMIN Admitting Unavailable KARASIKYASMIN Attending Unavailable YASMIN MARTINEZ Consulting Unavailable YASMIN MARTINEZ Consulting Unavailable RONALDKYASMIN Admitting Unavailable KARILDEFONSOKYASMIN Attending Unavailable RONALDKYASMIN Primary Care Unavailable KARILDEFONSOK, YASMIN Admitting Unavailable RONALDKYASMIN Attending Unavailable Marzena Meade DO Unavailable Unavailable Primary Care Provider UnavailELTON Tilley Attending Unavailable MARZENA MEADE Attending Unavailable CAROLYNE EDMONDS Attending Unavailable CAROLYNE EDMONDS Attending Unavailable CAROLYNE EDMONDS Attending Unavailable CAROLYNE EDMONSD Attending Unavailable Carolyne Edmonds Referring Unavailable Alex Knutson Attending Unavailable Carolyne Edmonds Primary Care Physician OUSMANE DANIELSON Attending Unavailable Medications Current Medications Medication Drug Class(es) Dates Sig (Normalized) Sig (Original) Advair HFA 115 mcg-21 mcg/inh inhalation aerosol with adapter (1 source) Start: 4 take 2 puff(s) by inhalation twice daily Advair HFA 115 mcg-21 mcg/inh inhalation aerosol with adapter 2 puff(s), Inhalation, BID, Refill(s) 6 Start Date: 09/13/23 Status: Ordered ALPRAZolam 0.5 mg oral tablet (1 source) Benzodiazepine Start: 4 take 1 tablet by mouth three times daily as needed for anxiety Xanax 0.5 mg Tab 0.5 mg = 1 tab(s), Oral, TID, PRN for anxiety, Refills(s) 0 Start Date: 09/13/23 Status: Ordered cyclophosphamide 50 mg oral capsule (1 source) Alkylating Drug Start: 4 cyclophosphamide 50 mg oral capsule Refills(s) 0 Start Date: 09/13/23 Status: Ordered estradiol 2 mg oral tablet (2 sources) Estrogen Start: 1 take 1 tablet by mouth once daily estradiol (ESTRACE) 2 mg tablet Take 1 tablet by mouth once daily. x 1 week for breakthrough bleeding 7 tablet 2 01/21/2021 Active Ethinyl Estradiol / Norethindrone (2 sources) Estrogen Start: 2 take 1 tablet by mouth once daily, then take 0.05 tablet by mouth once Norethindrone Acet-Ethinyl Est (LOESTRIN 03/24, ,) 1-20 mg-mcg per tablet Take 1 tablet by mouth once daily. in continuous fashion 90 tablet 3 03/21/2021 Active ondansetron 4 mg disintegrating oral tablet (1 source) Serotonin-3 Receptor Antagonist Start: 4 End: 4 take 1 tablet by mouth every eight hours for nausea ondansetron ODT (Zofran-ODT) 4 mg disintegrating tablet Indications: Nausea and vomiting, unspecified vomiting type Take 1 tablet (4 mg) by mouth every 8 hours if needed for nausea or vomiting for up to 7 days. 20 tablet 07/20/2023 07/27/2023 Active pantoprazole 40 mg delayed release oral tablet (3 sources) Proton Pump Inhibitor Start: 4 take 1 tablet by mouth once daily Pantoprazole [address] Tab 40 mg = 1 tab(s), Oral, Daily, # 30 tab(s), Refills(s) 4, Pharmacy: [facility] #[id number], 167, cm, 09/13/23 14:57:00 EDT, Height/Length Dosing, 48.9, kg, 09/13/23 14:57:00 EDT, Weight Dosing Start Date: 09/13/23 Status: Ordered Start: 09-13-2023 Pantopraz[address] Tab 30 EA, 0 Refill(s), Refills(s) 0 Start Date: 09/13/23 Status: Ordered Start: 07-20-2023 End: 08-09-2023 take 1 tablet by mouth once daily pantoprazole (ProtoNix) 20 mg EC tablet Indications: Gastritis, presence of bleeding unspecified, unspecified chronicity, unspecified gastritis type Take 1 tablet (20 mg) by mouth once daily for 20 days. Do not crush, chew, or split. 20 tablet 07/20/2023 08/09/2023 Active polyethylene glycol 3350 78507 mg powder for oral solution (1 source) Osmotic Laxative Start: 09-13-2023 take 17 g by mouth once daily Miralax 3350 17 gram packet 17 gm, Oral, Daily, # 527 gm, Refills(s) 5, Pharmacy: [facility] #[id number], 167, cm, 09/13/23 14:57:00 EDT, Height/Length Dosing, 48.9, kg, 09/13/23 14:57:00 EDT, Weight Dosing Start Date: 09/13/23 Status: Ordered Completed/Discontinued Medications Medication Drug Class(es) Dates Sig [...] On Sun07/20/23 at 1650, For 1 dose lamoTRIgine 25 mg oral tablet (1 source) Mood Stabilizer, Anti-epileptic Agent Start: 09-13-2023 take 1 tablet by mouth twice daily lamotrigine 25 mg Tab 42 EA, 0 Refill(s), TAKE 1 TABLET BY MOUTH DAILY FOR 14 DAYS THEN TAKE 1 TABLET BY MOUTH TWICE DAILY, Refills(s) 0 Start Date: 09/13/23 Status: Ordered methylphenidate hydrochloride 20 mg oral tablet (1 source) Central Nervous System Stimulant Start: 09-13-2023 take 1 tablet by mouth once daily at bedtime Ritalin 20 mg oral tablet 40 EA, 0 Refill(s), TAKE 1 TABLET BY MOUTH EVERY MORNING AND 1 TABLET EVERY NIGHT AT BEDTIME, Refills(s) 0 Start Date: 09/13/23 Status: Ordered 1 ml morphine sulfate 4 mg/ml injection (2 sources) Opioid Agonist Start: 07-20-2023 End: 07-20-2023 4 mg, intravenous, Once, On Sun07/20/23 at 1815, For 1 dose Problems Active Problems Problem Classification Problem Date Documented Da te Episodic/Chronic Abdominal pain (2 sources) Pain in pelvis; Translations: [Visceral abdominal pain] Onset: 09-25-2022 09-13-2023 Episodic Abdominal pain (1 source) Pelvic and perineal pain; Translations: [PELVIC AND PERINEAL PAIN] Onset: 03-24-2020 Anxiety disorders (2 sources) Anxiety disorder, unspecified; Translations: [Anxiety] Onset: 03-24-2020 09-13-2023 Chronic Asthma (2 sources) Unspecified asthma, uncomplicated; Translations: [Asthma] Onset: 03-24-2020 09-13-2023 Chronic Attention-deficit, conduct, and disruptive behavior disorders (1 source) Attention deficit hyperactivity disorder 09-13-2023 Chronic Cancer of cervix (1 source) Malignant tumor of cervix 09-13-2023 Chronic Deficiency and other anemia (1 source) Anemia 09-13-2023 Episodic Endometriosis (2 sources) Endometriosis of pelvic peritoneum; Translations: [Endometriosis (clinical)] Onset: 03-24-2020 09-13-2023 Chronic Esophageal disorders (2 sources) Esophagitis; Translations: [Esophagitis, unspecified without bleeding] Onset: 09-13-2023 Episodic Gastritis and duodenitis (4 sources) Gastritis; Translations: [Gastritis, unspecified, without bleeding] Onset: 07-20-2023 07-20-2023 Episodic Inflammatory diseases of female pelvic organs (1 source) Chronic salpingitis; Translations: [CHRONIC SALPINGITIS] Onset: 03-24-2020 Chronic Malaise and fatigue (1 source) Fatigue 09-13-2023 Episodic Menstrual disorders (5 sources) Excessive and frequent menstruation with regular cycle; Translations: [Amenorrhea] Onset: 03-22-2020 09-13-2023 Chronic Miscellaneous mental health disorders (2 sources) Psychosomatic factor in physical condition; Translations: [Psychological and behavioral factors associated with disorders or diseases classified elsewhere] Onset: 09-13-2023 Chronic Mood disorders (4 sources) Bipolar disorder, unspecified; Translations: [Bipolar disorder] Onset: 03-24-2020 Chronic Nausea and vomiting (5 sources) Nausea and vomiting; Translations: [Nausea with vomiting, unspecified] Onset: 07-20-2023 07-20-2023 Episodic Other aftercare (1 source) 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; Translations: [OTH INTERMEDIATE CURRENT DRUG THERAPY] Onset: 03-24-2020 Episodic Other and unspecified benign neoplasm (2 sources) Prolactinoma; Translations: [Benign neoplasm of pituitary gland] 07-11-2023 Episodic Other and unspecified benign neoplasm (1 source) Benign neoplasm of pituitary gland; 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)] Onset: 06-13-2023 Episodic Other endocrine disorders (2 sources) Disorder of pituitary gland; Translations: [Disorder of pituitary gland, unspecified] 07-11-2023 Chronic Other endocrine disorders (1 source) Disorder of pituitary gland, unspecified; Translations: [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HCC)] Onset: 06-13-2023 Chronic Other female genital disorders (1 source) Abnormal uterine bleeding 09-13-2023 Chronic Other gastrointestinal disorders (2 sources) Heartburn; Translations: [Heartburn] Onset: 09-13-2023 Episodic Other gastrointestinal disorders (1 source) Functional disorder of intestine; Translations: [Other specified functional intestinal disorders] Onset: 09-13-2023 Episodic Other non-traumatic joint disorders (1 source) Other specified arthritis, left hip; Translations: [OTHER SPECIFIED ARTHRITIS LEFT HIP] Onset: 03-24-2020 Chronic Other non-traumatic joint disorders (1 source) Other specified arthritis, right hip; Translations: [OTHER SPECIFIED ARTHRITIS RIGHT HIP] Onset: 03-24-2020 Chronic Other non-traumatic joint disorders (1 source) Bilateral arthritis of sacroiliac joint 09-13-2023 Chronic Other nutritional; endocrine; and metabolic disorders (1 source) Abnormal weight loss; Translations: [Abnormal weight loss] Onset: 09-13-2023 Episodic Other nutritional; endocrine; and metabolic disorders (1 source) Weight loss 09-13-2023 Episodic Other screening for suspected conditions (not mental disorders or infectious disease) (5 sources) Increased prolactin level; Translations: [Other specified abnormal findings of blood chemistry] Onset: 05-28-2023 07-11-2023 Episodic Other upper respiratory disease (1 source) Chronic rhinitis 09-13-2023 Chronic Other upper respiratory disease (1 source) Seasonal allergic rhinitis 09-13-2023 Chronic Residual codes; unclassified (4 sources) Procedure and treatment not carried out, unspecified reason; Translations: [PROC AND TX NOT CARRIED OUT UNS REASON] Onset: 02-23-2020 Episodic Residual codes; unclassified (1 source) History of laparoscopy 09-13-2023 Episodic Spondylosis; intervertebral disc disorders; other back problems (1 source) Sciatica 09-13-2023 Episodic Spontaneous (1 source) Miscarriage 09-13-2023 Episodic Unclassified (1 source) COVID-19; Translations: [COVID-19] Onset: 03-03-2020 Past or Other Problems Problem Classification Problem Date Documented Da te Episodic/Chronic Inflammatory diseases of female pelvic organs (2 sources) Female pelvic peritoneal adhesions (postinfective); Translations: [Chronic vaginitis] Onset: 03-24-2020 09-13-2023 Episodic Other and unspecified benign neoplasm (1 source) Benign neoplasm of pituitary gland Onset: 06-13-2023 09-13-2023 Episodic Results Test Name Value Interpretation Reference Range Facility Ambulatory Visit Summaryon 0 09-13-2023 Ambulatory Visit Summary Ambulatory Visit Summary [facility] :1995 Visit Date:09/13/2023 Ambulatory Visit Instructions Your Diagnosis Weight loss Nausea and vomiting Heartburn Bipolar disorder Stress-related physiological response affecting medical condition Visceral hypersensitivity syndrome Abnormal CT of the abdomen Esophagitis Your Care Team Attending Physician - Alex Knutson MD Primary Care Physician - Carolyne Edmonds MD Referring Physician - Carolyne Edmonds MD This Is Your Medications List pantoprazole (Pantoprazole [address] Tab) polyethylene glycol 3350 (Miralax 3350 17 gram packet) Contact prescribing physician if questions or concerns alprazolam (Xanax 0.5 mg Tab) cyclophosphamide (cyclophosphamide 50 mg oral capsule) fluticasone-salmetero l (Advair HFA 115 mcg-21 mcg/inh inhalation aerosol with adapter) lamotrigine (lamotrigine 25 mg Tab) methylphenidate (Ritalin 20 mg oral tablet) pantoprazole (Pantoprazole [address] Tab) Discharge Vitals Heart Rate (Peripheral) 78 Respiratory Rate 16 Blood Pressure 110/82 Height 167 cm Height 66 in Weight 48.9 kg Weight 107.58 lb BMI 17.53 What to do next Scheduled Follow-Up Appointments Sunday 9:00 AM EDT Where: [facility] Medications What How Much When Why Instructions New pantoprazole (Pantoprazole [address] Tab) 1 Tablets By Mouth Every day Weight loss Nausea and vomiting Heartburn Bipolar disorder Stress-related physiological response affecting medical condition Visceral hypersensitivity syndrome Refills: 4 Pickup at [facility] #[id number] New polyethylene glycol 3350 (Miralax 3350 17 gram packet) 17 Gram By Mouth Every day Weight loss Nausea and vomiting Heartburn Bipolar disorder Stress-related physiological response affecting medical condition Visceral hypersensitivity syndrome Refills: 5 Pickup at [facility] #[id number] Unchanged alprazolam (Xanax 0.5 mg Tab) 1 Tablets By Mouth 3 times a day as needed for for anxiety Contact prescribing physician if questions or concerns Unchanged cyclophosphamide (cyclophosphamide 50 mg oral capsule) Contact prescribing physician if questions or concerns Unchanged fluticasone-salmetero l (Advair HFA 115 mcg-21 mcg/ inh inhalation aerosol with adapter) 2 Puffs Inhalation 2 times a day Contact prescribing physician if questions or concerns Unchanged lamotrigine (lamotrigine 25 mg Tab) 42 EA, 0 Refill(s), TAKE 1 TABLET BY MOUTH DAILY FOR 14 DAYS THEN TAKE 1 TABLET BY MOUTH TWICE DAILY Contact prescribing physician if questions or concerns Unchanged methylphenidate (Ritalin 20 mg oral tablet) 40 EA, 0 Refill(s), TAKE 1 TABLET BY MOUTH EVERY MORNING AND 1 TABLET EVERY NIGHT AT BEDTIME Contact prescribing physician if questions or concerns Unchanged pantoprazole (Pantoprazole [address] Tab) 30 EA, 0 Refill(s) Contact prescribing physician if questions or concerns Pharmacy Information [facility] #[id number]: [address] [place], [place] [id number] [phone] Allergies No Known Medication Allergies Problems Ongoing - Any problem that you are currently receiving treatment for. Abnormal CT of the abdomen Abnormal uterine bleeding. 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 Bipolar disorder Chronic rhinitis Chronic vaginitis Depressive disorder Disorder of pituitary gland Endometriosis (clinical) Esophagitis Fatigue Gastritis Heartburn History of laparoscopy Malignant tumor of cervix Miscarriage Nausea and vomiting Pain in pelvis Prolactin level above reference range Prolactinoma Sciatica Seasonal allergic rhinitis Stress-related physiological response affecting medical condition Visceral hypersensitivity syndrome Weight loss Patient Survey You may receive a survey via text or e-mail asking about your office visit. Please share your experience with us by completing your survey. We appreciate your feedback and thank you for choosing us for your care. Ramón Sandra [facility] Gastroenterology Office/Clin ic Noteon 09-13-2023 Gastroenterology Office/Clinic Note Gastroenterology Office/Clinic Note Chief Complaint ref by Zay- nausea and weight loss HPI Staff Patient is a 28 year old female who was referred by Zay for nausea and weight loss. Hx bipolar disorder - see's a counselor Denies previous EGD/Colonoscopy. Denies Fhx colon cancer. Denies blood thinners/diabetic injectables. Rapid wt loss - she feels is related to potential eating disorder. risperidone was given to help her eat- when she stopped in June is when she dropped weight rapidly. Stopped Ritalin last Sunday, since stopping it has helped appetite Vomiting when waking & driving Diet: soft foods, apple sauce and yogurt. Has tried protein shakes but are costly Takes Pantoprazole - slight relief BM's worsened over the last few months (started in june): feels urge but unable to go, when she does go they are small stools. Takes Colace, has not tried miralax CT 07/20/23 @ : IMPRESSION: CHEST: 1. No consolidation or pleural [...] may be secondary to underdistention versus colitis. CBC/CMP 07/20/23 @ : Glucose: 147 (H) CO2: 19 (L) Leukocytes: 11.5 (H) Neutrophils 10.32 (H) Lymphocytes 0.98 (L) History of Present Illness I have reviewed HPI staff note, most recent labs and imaging, more than 30 minutes spent reviewing the chart, during encounter, placing orders and counseling the patient. pt with declined appetite over the years x 4 years now forcing herslef to eat pt tried Respirtone which helped her gaining weight but did not improve appetite pt stopped it due to fertility issues and lost significant amounts of weight Pt with issues with BMs since June lots of anxiety now with small amounts and feels that she has to go constantly to the bathroom pt with early satiety never had scopes greasy food messes up her stomach CT with possible inflammation in the esophagus, stomach, and colon pt with issues with gas PT trying to have a baby - wants to avoid any medication which could potentially mess up with that Review of Systems All systems reviewed, negative except as mentioned above Physical Exam Vitals & Measurements HR: 78(Peripheral) RR: 16 BP: 110/82 HT: 66 in HT: 167 cm WT: 48.9 kg WT: 107.58 lb BMI: 17.53 General: alert, no acute distress HEENT: atraumatic normocephalic Cardiovascular: regular rate and rhythm, normal peripheral perfusion Respiratory: Lungs CTA, respirations non labored Extremities: no deformity, no trauma Abdomen: Benign, soft, nontender nondistended Assessment/Plan 1. Weight loss (R63.4: Abnormal weight loss) Ordered: pantoprazole, 40 mg = 1 tab(s), Oral, Daily, # 30 tab(s), Refills(s) 4, Pharmacy: [facility] #[id number], 167, cm, 09/13/23 14:57:00 EDT, Height/Length Dosing, 48.9, kg, 09/13/23 14:57:00 EDT, Weight Dosing polyethylene glycol 3350, 17 gm, Oral, Daily, # 527 gm, Refills(s) 5, Pharmacy: [facility] #[id number], 167, cm, 09/13/23 14:57:00 EDT, Height/Length Dosing, 48.9, kg, 09/13/23 14:57:00 EDT, Weight Dosing Colonoscopy (Hospital Procedure) EGD Endoscopy (Hospital Procedure) 2. Nausea and vomiting (R11.2: Nausea with vomiting, unspecified) Ordered: pantoprazole, 40 mg = 1 tab(s), Oral, Daily, # 30 tab(s), Refills(s) 4, Pharmacy: [facility] #[id number], 167, cm, 09/13/23 14:57:00 EDT, Height/Length Dosing, 48.9, kg, 09/13/23 14:57:00 EDT, Weight Dosing polyethylene glycol 3350, 17 gm, Oral, Daily, # 527 gm, Refills(s) 5, Pharmacy: [facility] #[id number], 167, cm, 09/13/23 14:57:00 EDT, Height/Length Dosing, 48.9, kg, 09/13/23 14:57:00 EDT, Weight Dosing Colonoscopy (Hospital Procedure) EGD Endoscopy (Hospital Procedure) 3. Heartburn (R12: Heartburn) Ordered: pantoprazole, 40 mg = 1 tab(s), Oral, Daily, # 30 tab(s), Refills(s) 4, Pharmacy: [facility] #[id number], 167, cm, 09/13/23 14:57:00 EDT, Height/Length Dosing, 48.9, kg, 09/13/23 14:57:00 EDT, Weight Dosing polyethylene glycol 3350, 17 gm, Oral, Daily, # 527 gm, Refills(s) 5, Pharmacy: [facility] #[id number], 167, cm, 09/13/23 14:57:00 EDT, Height/Length Dosing, 48.9, kg, 09/13/23 14:57:00 EDT, Weight Dosing Colonoscopy (Hospital Procedure) EGD Endoscopy (Hospital Procedure) 4. Bipolar disorder (F31.9: Bipolar disorder, unspecified) Ordered: pantoprazole, 40 mg (more content not included)... Normal [facility] Comment on above: Result Comment: Elec tronically Signed By: Zenia ELLISON, Alex Kapoor.br\Date and Time Signed: 09/13/23 15:22 EDT Angelic 08-14-2023 MAHENDRA Telephone (ENDOMN) [facility] ([id number]) 1995 F Date Time Provider Department 08/14/23 ELTON CUMMINGS During your visit today, we recorded the following information about you: Santiago Salcedo MA 08/14/2023 11:09 AM Signed Received MRI results completed 08/02/2023, scanned to chart Santiago Salcedo Biomechanical Engineer II Endocrinology AND Metabolism [place] [facility] F20 AND X20 Allergies As of [...] Status:Closed by SANTIAGO SALCEDO on 08/14/23 Normal [facility] CBC W Auto Differential pane l (Bld)on 07-20-2023 Basophils (Bld) [#/Vol] 0.03 10*3/uL [facility] Basophils/100 WBC (Bld) 0.3 % 0.0 - 2.0 % [facility] Eosinophils (Bld) [#/Vol] 0.00 10*3/uL [facility] Eosinophils/100 WBC (Bld) 0.0 % 0.0 - 6.0 % [facility] Erythrocyte distribution width (RBC) [Ratio] 14.5 % 11.5 - 14.5 % [facility] Hematocrit (Bld) [Volume fraction] 39.1 % 36.0 - 46.0 % [facility] Hemoglobin (Bld) [Mass/Vol] 13.5 g/dL 12.0 - 16.0 g/dL [facility] Immature granulocytes (Bld) [#/Vol] 0.03 10*3/uL [facility] Immature granulocytes/100 WBC (Bld) 0.3 % 0.0 - 0.9 % [facility] Comment on above: Immature Granulocyte Count (IG) includes promyelocytes, myelocytes and metamyelocytes but does not include bands. Percent differential counts (%) should be interpreted in the context of the absolute cell counts (cells/UL). Interpretation and review of laboratory results Abnormal [facility] Lymphocytes (Bld) [#/Vol] 0.98 10*3/uL Low [facility] Lymphocytes/100 WBC (Bld) 8.5 % 13.0 - 44.0 % [facility] MCH (RBC) [Entitic mass] 28.7 pg 26.0 - 34.0 pg [facility] MCHC (RBC) [Mass/Vol] 34.5 g/dL 32.0 - 36.0 g/dL [facility] MCV (RBC) [Entitic vol] 83 fL 80 - 100 fL [facility] Monocytes (Bld) [#/Vol] 0.13 10*3/uL [facility] Monocytes/100 WBC (Bld) 1.1 % 2.0 - 10.0 % [facility] Neutrophils (Bld) [#/Vol] 10.32 10*3/uL High [facility] Comment on above: Percent differential counts (%) should be interpreted in the context of the absolute cell counts (cells/uL). Neutrophils/100 WBC (Bld) 89.8 % 40.0 - 80.0 % [facility] Nucleated RBC/100 WBC (Bld) [Ratio] 0.0 % [facility] Platelets (Bld) [#/Vol] 290 10*3/uL [facility] RBC (Bld) [#/Vol] 4.71 10*6/uL [facility] WBC (Bld) [#/Vol] 11.5 10*3/uL [facility] Basophils (Bld) [#/Vol] 0.03 x10*3/uL Normal 0.00-0.10 [facility] Comment on above: Performed By: #### 5 7021-8 #### JIMENA Mark ([id number]) [facility] ([facility]) [address] [place] [address] Basophils/100 WBC (Bld) 0.3 % Normal 0.0-2.0 [facility] Comment on above: Performed By: #### 5 7021-8 #### JIMENA Mark ([id number]) [facility] ([facility]) [address] [place] [address] Eosinophils (Bld) [#/Vol] 0.00 x10*3/uL Normal 0.00-0.70 [facility] Comment on above: Performed By: #### 5 7021-8 #### JIMENA Mark ([id number]) [facility] ([facility]) [address] [place] [address]558 Eosinophils/100 WBC (Bld) 0.0 % Normal 0.0-6.0 [facility] Comment on above: Performed By: #### 5 7021-8 #### JIMENA Mark ([id number]) [facility] ([facility]) [address] [place] [address] 68610 Erythrocyte distribution width (RBC) [Ratio] 14.5 % Normal 11.5-14.5 [facility] Comment on above: Performed By: #### 5 7021-8 #### JIMENA Mark ([id number]) [facility] ([facility]) [address] [place] [address]006 Hematocrit (Bld) [Volume fraction] 39.1 % Normal 36.0-46.0 [facility] Comment on above: Performed By: #### 5 7021-8 #### JIMENA Mark ([id number]) [facility] ([facility]) [address] [place] [address] 17643 Hemoglobin (Bld) [Mass/Vol] 13.5 g/dL Normal 12.0-16.0 [facility] Comment on above: Performed By: #### 5 7021-8 #### JIMENA Mark ([id number]) [facility] ([facility]) [address] [place] [address] 72726 Immature granulocytes (Bld) [#/Vol] 0.03 x10*3/uL Normal 0.00-0.70 [facility] Comment on above: Performed By: #### 5 7021-8 #### JIMENA Mark ([id number]) [facility] ([facility]) [address] [place] [address]143 Immature granulocytes/100 WBC (Bld) 0.3 % Normal 0.0-0.9 [facility] Comment on above: Result Comment: Yanet ture Granulocyte Count (IG) includes promyelocytes, myelocytes and metamyelocytes but does not include bands. Percent differential counts (%) should be interpreted in the context of the absolute cell counts (cells/UL). Performed By: #### 5 7021-8 #### JIMENA Mark ([id number]) [facility] ([facility]) [address] [place] [address] Lymphocytes (Bld) [#/Vol] 0.98 x10*3/uL Low 1.20-4.80 [facility] Comment on above: Performed By: #### 5 7021-8 #### JIMENA Mark ([id number]) [facility] ([facility]) [address] [place] [address] 86693 Lymphocytes/100 WBC (Bld) 8.5 % Normal 13.0-44.0 [facility] Comment on above: Performed By: #### 5 7021-8 #### JIMENA Mark ([id number]) [facility] ([facility]) [address] [place] [address] 16711 MCH (RBC) [Entitic mass] 28.7 pg Normal 26.0-34.0 [facility] Comment on above: Performed By: #### 5 7021-8 #### JIMENA Mark ([id number]) [facility] ([facility]) [address] [place] [address] 66271 MCHC (RBC) [Mass/Vol] 34.5 g/dL Normal 32.0-36.0 [facility] Comment on above: Performed By: #### 5 7021-8 #### JIMENA Mark ([id number]) [facility] ([facility]) [address] [place] [address] 12573 MCV (RBC) [Entitic vol] 83 fL Normal 80-100 [facility] Comment on above: Performed By: #### 5 7021-8 #### JIMENA Mark ([id number]) [facility] ([facility]) [address] [place] [address] 41312 Monocytes (Bld) [#/Vol] 0.13 x10*3/uL Normal 0.10-1.00 [facility] Comment on above: Performed By: #### 5 7021-8 #### JIMENA Mark ([id number]) [facility] ([facility]) [address] [place] [address] 03309 Monocytes/100 WBC (Bld) 1.1 % Normal 2.0-10.0 [facility] Comment on above: Performed By: #### 5 7021-8 #### JIMENA Mark ([id number]) [facility] ([facility]) [address] [place] [address] 42433 Neutrophils (Bld) [#/Vol] 10.32 x10*3/uL High 1.20-7.70 [facility] Comment on above: Result Comment: Perc ent differential counts (%) should be interpreted in the context of the absolute cell counts (cells/uL). Performed By: #### 5 7021-8 #### JIMENA Mark ([id number]) [facility] ([facility]) [address] [place] [address] 36218 Neutrophils/100 WBC (Bld) 89.8 % Normal 40.0-80.0 [facility] Comment on above: Performed By: #### 5 7021-8 #### JIMENA Mark ([id number]) [facility] ([facility]) [address] [place] [address] 21598 Nucleated RBC/100 WBC (Bld) [Ratio] 0.0 /100 WBCs Normal 0.0-0.0 [facility] Comment on above: Performed By: #### 5 7021-8 #### JIMENA Mark ([id number]) [facility] ([facility]) [address] [place] [address] 11706 Platelets (Bld) [#/Vol] 290 x10*3/uL Normal 150-450 [facility] Comment on above: Performed By: #### 5 7021-8 #### JIMENA Mark ([id number]) [facility] ([facility]) [address] [place] [address] 93319 RBC (Bld) [#/Vol] 4.71 x10*6/uL Normal 4.00-5.20 [facility] Comment on above: Performed By: #### 5 7021-8 #### JIMENA Mark ([id number]) [facility] ([facility]) [address] [place] [address] 39193 WBC (Bld) [#/Vol] 11.5 x10*3/uL High 4.4-11.3 [facility] Comment on above: Performed By: #### 5 7021-8 #### JIMENA Mark ([id number]) [facility] ([facility]) [address] [place] [address] CHEST ABDOMEN PELVIS W IV CONTRASTon 07-20-2023 CT CHEST ABDOMEN PELVIS W IV CONTRAST Interpreted By: Mag Santiago, STUDY: CT CHEST ABDOMEN PELVIS W IV CONTRAST; 07/20/2023 5:39 pm INDICATION: Signs/Symptoms:Persis tent vomiting, epigastric pain in the chest.. COMPARISON: Chest x-ray 07/20/2023. ACCESSION NUMBER(S): [id number] ORDERING CLINICIAN: ABIODUN OCHOA TECHNIQUE: Axial CT [...] Mag Santiago 07/20/2023 6:51 PM Dictation workstation: [id number] [facility] CT Chest and Abdomen and Pel vis [...] Mag Santiago 07/20/2023 6:51 PM Dictation workstation: [id number] Interpreted By: Mag Santiago, STUDY: CT CHEST ABDOMEN PELVIS W IV CONTRAST; 07/20/2023 5:39 pm INDICATION: Signs/Symptoms:Persis tent vomiting, epigastric pain in the chest.. COMPARISON: Chest x-ray 07/20/2023. ACCESSION NUMBER(S): [id number] ORDERING CLINICIAN: ABIODUN OCHOA TECHNIQUE: Axial CT [...] chest.. COMPARISON: Chest x-ray 07/20/2023. ACCESSION NUMBER(S): [id number] ORDERING CLINICIAN: ABIODUN OCHOA TECHNIQUE: Axial CT [...] Mag Santiago 07/20/2023 6:51 PM Dictation workstation: [id number] [facility] Work Phone: Radiology Study observation (narrative) [facility] Work Phone: CT Chest and Abdomen and Pel vis W contrast IVOrdered By: Mag Santiago on 07-20-2023 [facility] Work Phone: Choriogonadotropin.beta subu niton 07-20-2023 HCG.beta subunit Qn m[IU]/mL Normal <5 [facility] Comment on above: Order Comment: Total HCG measurement is performed using the Jade Saleem Access Immunoassay which detects intact HCG and free beta HCG subunit. This test is not indicated for use as a tumor marker. HCG testing is performed using a different test methodology at [facility] than other [facility]. Direct result comparison should only be made within the same method. Performed By: #### 2 1198-7 #### JIMENA Mark ([id number]) [facility] ([facility]) [address] [place] [address] Comprehensive metabolic 2000 panelon 07-20-2023 Albumin BCP dye [Mass/Vol] 4.7 g/dL 3.4 - 5.0 g/dL [facility] ALP [Catalytic activity/Vol] 47 U/L 33 - 110 U/L [facility] ALT With P-5'-P [Catalytic activity/Vol] 14 U/L 7 - 45 U/L [facility] Comment on above: Patients treated wit h Sulfasalazine may generate falsely decreased results for ALT. Anion gap [Moles/Vol] 18 mmol/L 10 - 2 0 mmol/L [facility] AST With P-5'-P [Catalytic activity/Vol] 15 U/L 9 - 39 U/L [facility] Bilirubin [Mass/Vol] 0.6 mg/dL 0.0 - 1 .2 mg/dL [facility] Calcium [Mass/Vol] 9.8 mg/dL 8.6 - 10. 3 mg/dL [facility] Chloride [Moles/Vol] 105 mmol/L 98 - 10 7 mmol/L [facility] CO2 [Moles/Vol] 19 mmol/L Low 21 - 32 mmol/L [facility] Creatinine [Mass/Vol] 0.77 mg/dL 0.50 - 1.05 mg/dL [facility] eGFR - PINF [facility] Comment on above: Calculations of lesli mated GFR are performed using the 2020 CKD-EPI Study Refit equation without the race variable for the IDMS-Traceable creatinine methods. https://jasn.asnjournals.org/content//ASN.2020 431127 Glucose [Mass/Vol] 147 mg/dL High 74 - 99 mg/dL [facility] Interpretation and review of laboratory results Abnormal [facility] Potassium [Moles/Vol] 3.8 mmol/L 3.5 - 5.3 mmol/L [facility] Protein [Mass/Vol] 7.3 g/dL 6.4 - 8.2 g/dL [facility] Sodium [Moles/Vol] 138 mmol/L 136 - 145 mmol/L [facility] Urea nitrogen [Mass/Vol] 15 mg/dL 6 - 23 mg/dL [facility] Albumin BCP dye [Mass/Vol] 4.7 g/dL Normal 3.4-5.0 [facility] Comment on above: Performed By: #### 2 4323-8 #### JIMENA Mark ([id number]) [facility] ([facility]) [address] [place] [address] 28711 ALP [Catalytic activity/Vol] 47 U/L Normal 33-110 [facility] Comment on above: Performed By: #### 2 4323-8 #### JIMENA Mark ([id number]) [facility] ([facility]) [address] [place] [address] 49852 ALT With P-5'-P [Catalytic activity/Vol] 14 U/L Normal 7-45 [facility] Comment on above: Result Comment: Edel ents treated with Sulfasalazine may generate falsely decreased results for ALT. Performed By: #### 2 4322-8 #### JIMENA Mark ([id number]) [facility] ([facility]) [address] [place] [address] 15847 Anion gap [Moles/Vol] 18 mmol/L Normal 10-20 [facility] Comment on above: Performed By: #### 2 4322-8 #### JMIENA Mark ([id number]) [facility] ([facility]) [address] [place] [address] 77109 AST With P-5'-P [Catalytic activity/Vol] 15 U/L Normal 9-39 [facility] Comment on above: Performed By: #### 2 4323-8 #### JIMENA Mark ([id number]) [facility] ([facility]) [address] [place] [address] 41134 Bilirubin [Mass/Vol] 0.6 mg/dL Normal 0.0-1.2 [facility] Comment on above: Performed By: #### 2 4323-8 #### JIMENA Mark ([id number]) [facility] ([facility]) [address] [place] [address] 08640 Calcium [Mass/Vol] 9.8 mg/dL Normal 8.6-10.3 [facility] Comment on above: Performed By: #### 2 4322-8 #### JIMENA Mark ([id number]) [facility] ([facility]) [address] [place] [address] 81665 Chloride [Moles/Vol] 105 mmol/L Normal 98-107 [facility] Comment on above: Performed By: #### 2 4323-8 #### JIMENA Mark ([id number]) [facility] ([facility]) [address] [place] [address] 82915 CO2 [Moles/Vol] 19 mmol/L Low 21-32 [facility] Comment on above: Performed By: #### 2 4323-8 #### JIMENA Mark ([id number]) [facility] ([facility]) [address] [place] [address] 63791 Creatinine [Mass/Vol] 0.77 mg/dL Normal 0.50-1.05 [facility] Comment on above: Performed By: #### 2 4323-8 #### JIMENA Mark ([id number]) [facility] ([facility]) [address] [place] [address] 13643 GFR/1.73 sq M.predicted MDRD (S/P/Bld) [Vol rate/Area] mL/min/{1.73_m2} Normal >60 [facility] Comment on above: Result Comment: Calc ulations of estimated GFR are performed using the 2020 CKD-EPI Study Refit equation without the race variable for the IDMS-Traceable creatinine methods. https://jasn.asnjournals.org/content//ASN.2020 892095 Performed By: #### 2 4323-8 #### JIMENA Mark ([id number]) [facility] ([facility]) [address] [place] [address] 71204 Glucose [Mass/Vol] 147 mg/dL High 74-99 [facility] Comment on above: Performed By: #### 2 4323-8 #### JIMENA Mark ([id number]) [facility] ([facility]) [address] [place] [address] 84886 Potassium [Moles/Vol] 3.8 mmol/L Normal 3.5-5.3 [facility] Comment on above: Performed By: #### 2 4323-8 #### JIMENA Mark ([id number]) [facility] ([facility]) [address] [place] [address] 90950 Protein [Mass/Vol] 7.3 g/dL Normal 6.4-8.2 [facility] Comment on above: Performed By: #### 2 4323-8 #### JIMENA Mark ([id number]) [facility] ([facility]) [address] [place] [address] 59223 Sodium [Moles/Vol] 138 mmol/L Normal 136-145 [facility] Comment on above: Performed By: #### 2 4323-8 #### JIMENA Mark ([id number]) [facility] ([facility]) [address] [place] [address] 13661 Urea nitrogen [Mass/Vol] 15 mg/dL Normal 6-23 [facility] Comment on above: Performed By: #### 2 4323-8 #### JIMENA Mark ([id number]) [facility] ([facility]) [address] [place] [address] 13435 DRUG SCREEN,URINEon 07-20-19 24 Amphetamines Screen Ql (U) Negative Normal Presumptive Negative [facility] Comment on above: Order Comment: Drug screen results are presumptive and should not be used to assess compliance with prescribed medication. Contact the performing [facility] laboratory to add-on definitive confirmatory testing if [...] phenylpropanolamine, pseudoephedrine, and propranolol. Performed By: #### Luisito RUG3 #### JIMENA Mark ([id number]) [facility] ([facility]) [address] [place] [address] Barbiturates Screen Ql (U) Negative Normal Presumptive Negative [facility] Comment on above: Order Comment: Drug screen results are presumptive and should not be used to assess compliance with prescribed medication. Contact the performing [facility] laboratory to add-on definitive confirmatory testing if [...] FF LEVEL: 200 NG/ML Performed By: #### Luisito RUG3 #### JIMENA Mark ([id number]) [facility] ([facility]) [address] [place] [address] Benzodiazepines Ql (U) Negative Normal Presu mptive Negative [facility] Comment on above: Order Comment: Drug screen results are presumptive and should not be used to assess compliance with prescribed medication. Contact the performing [facility] laboratory to add-on definitive confirmatory testing if [...] By: #### D RUG3 #### JIMENA Mark ([id number]) [facility] ([facility]) [address] [place] [address] 21159 Benzoylecgonine Screen Ql (U) Negative Normal Presumptive Negative [facility] Comment on above: Order Comment: Drug screen results are presumptive and should not be used to assess compliance with prescribed medication. Contact the performing [facility] laboratory to add-on definitive confirmatory testing if [...] By: #### D RUG3 #### JIMENA Mark ([id number]) [facility] ([facility]) [address] [place] [address] 28488 Cannabinoids Screen Ql (U) Positive Abnormal Presumptive Negative [facility] Comment on above: Order Comment: Drug screen results are presumptive and should not be used to assess compliance with prescribed medication. Contact the performing [facility] laboratory to add-on definitive confirmatory testing if [...] By: #### D RUG3 #### JIMENA Mark ([id number]) [facility] ([facility]) [address] [place] [address] 04085 fentaNYL+Norfentanyl Screen Ql (U) Negative Normal Presumptive Negative [facility] Comment on above: Order Comment: Drug screen results are presumptive and should not be used to assess compliance with prescribed medication. Contact the performing [facility] laboratory to add-on definitive confirmatory testing if [...] By: #### D RUG3 #### JIMENA Mark ([id number]) [facility] ([facility]) [address] [place], [place] [id number] Methadone Screen Ql (U) Negative Normal Pres umptive Negative [facility] Comment on above: Order Comment: Drug screen results are presumptive and should not be used to assess compliance with prescribed medication. Contact the performing [facility] laboratory to add-on definitive confirmatory testing if [...] CUTO FF LEVEL: 150 NG/ML The metabolite Q-ddxyn-jyuczdqlarxgaz (LAAM) is not detected by this method in concentrations that would be found in the urine of patients on LAAM therapy. Performed By: #### D RUG3 #### JIMENA Mark ([id number]) [facility] ([facility]) [address] [place] [address] 14560 Opiates Screen Ql (U) Negative Normal Presum ptive Negative [facility] Comment on above: Order Comment: Drug screen results are presumptive and should not be used to assess compliance with prescribed medication. Contact the performing [facility] laboratory to add-on definitive confirmatory testing if [...] Oxycodone Screen, Urine result). Performed By: #### D RUG3 #### JIMENA Mark ([id number]) [facility] ([facility]) [address] [place] [address] 88789 oxyCODONE+oxyMORphone Screen Ql (U) Negative Normal Presumptive Negative [facility] Comment on above: Order Comment: Drug screen results are presumptive and should not be used to assess compliance with prescribed medication. Contact the performing [facility] laboratory to add-on definitive confirmatory testing if [...] both oxycodone and oxymorphone. Performed By: #### D RUG3 #### JIMENA Mark ([id number]) [facility] ([facility]) [address] [place] [address] 72363 Phencyclidine Ql (U) Negative Normal Presump tive Negative [facility] Comment on above: Order Comment: Drug screen results are presumptive and should not be used to assess compliance with prescribed medication. Contact the performing [facility] laboratory to add-on definitive confirmatory testing if [...] By: #### D RUG3 #### JIMENA Mark ([id number]) [facility] ([facility]) [address] [place] [address] 38845 Drug Screen, Urineon 024 Amphetamines Screen Ql (U) Negative Presumptive Negative [facility] Comment on above: CUTOFF LEVEL: 500 NG /ML Cross-reactivity has been reported with high concentrations of the following drugs: buproprion, chloroquine, chlorpromazine, ephedrine, mephentermine, fenfluramine, phentermine, phenylpropanolamine, pseudoephedrine, and propranolol. Barbiturates Screen Ql (U) Negative Presumptive Negative [facility] Comment on above: CUTOFF LEVEL: 200 NG /ML Benzodiazepines Ql (U) Negative Presu mptive Negative [facility] Comment on above: CUTOFF LEVEL: 200 NG /ML Benzoylecgonine Screen Ql (U) Negative Presumptive Negative [facility] Comment on above: CUTOFF LEVEL: 150 NG /ML Cannabinoids Screen Ql (U) Positive Abnormal Presumptive Negative [facility] Comment on above: CUTOFF LEVEL: 50 NG/ ML fentaNYL+Norfentanyl Screen Ql (U) Negative Presumptive Negative [facility] Comment on above: CUTOFF LEVEL: 5 NG/M L Interpretation and review of laboratory results Abnormal [facility] Methadone Screen Ql (U) Negative Pres umptive Negative [facility] Comment on above: CUTOFF LEVEL: 150 NG /ML The metabolite P-llqrm-hbfkkwoszntwgn (LAAM) is not detected by this method in concentrations that would be found in the urine of patients on LAAM therapy. Opiates Screen Ql (U) Negative Presum ptive Negative [facility] Comment on above: CUTOFF LEVEL: 300 NG /ML The opiate screen does not detect fentanyl, meperidine, or tramadol. Oxycodone is not consistently detected (refer to Oxycodone Screen, Urine result). oxyCODONE+oxyMORphone Screen Ql (U) Negative Presumptive Negative [facility] Comment on above: CUTOFF LEVEL: 100 NG /ML This test will accurately detect both oxycodone and oxymorphone. Phencyclidine Ql (U) Negative Presump tive Negative [facility] Comment on above: CUTOFF LEVEL: 25 NG/ ML Cross-reactivity has been reported with dextromethorphan. Drug screen results are presumptive and should not be used to assess compliance with prescribed medication. Contact the performing [facility] laboratory to add-on definitive confirmatory testing if [...] be directed to the laboratory medical directors. [facility] ECG 12-LEADon 07-20-2023 ECG 12-LEAD Ventricular Rate 68 Atrial Rate 67 P-R Interval 110 QRS Duration 126 Q-T Interval 419 QTC Calculation(Bazett) 446 P [place] 82 R [place] 77 T [place] 67 QRS Count 11 Q Onset 249 T Offset 459 QTC Fredericia 437 Diagnosis Sinus rhythm Borderline short UT interval Nonspecific intraventricular conduction delay ST elev, probable normal early repol pattern See ED provider note for full interpretation and clinical correlation Confirmed by Lynsey Luna ([id number]) on 07/28/2023 12:23:14 PM Normal [facility] HCG.beta subunit Qnon 2023 Interpretation and review of laboratory results Normal [facility] Total HCG measuremen t is performed using the Jade Saleem Access Immunoassay which detects intact HCG and free beta HCG subunit. This test is not indicated for use as a tumor marker. HCG testing is performed using a different test methodology at [facility] than other [facility]. Direct result comparison should only be made within the same method. [facility] Human Chorionic Gonadotropin , Serum Quantitativeon 07-20-2023 HCG.beta subunit Qn NINF [facility] Lactateon 07-20-2023 Lactate [Moles/Vol] 1.4 mmol/L 0.4 - 2. 0 mmol/L [facility] Lactate [Moles/Vol] 1.4 mmol/L Normal 0.4-2.0 [facility] Comment on above: Order Comment: Venip uncture immediately after or during the administration of Metamizole may lead to falsely low results. Testing should be performed immediately prior to Metamizole dosing. Performed By: #### 2 524-7 #### JIMENA Mark ([id number]) [facility] ([facility]) [address] [place] [address] 25546 Lactate [Moles/Vol] 2.2 mmol/L High 0.4 - 2. 0 mmol/L [facility] Lactate [Moles/Vol] 2.2 mmol/L High 0.4-2.0 [facility] Comment on above: Order Comment: Venip uncture immediately after or during the administration of Metamizole may lead to falsely low results. Testing should be performed immediately prior to Metamizole dosing. Performed By: #### 2 524-7 #### JIMENA Mark ([id number]) [facility] ([facility]) [address] [place] [address] 75216 Lactate [Moles/Vol]on 2023 Interpretation and review of laboratory results Normal [facility] Venipuncture immediately after or during the administration of Metamizole may lead to falsely low results. Testing should be performed immediately prior to Metamizole dosing. [facility] Interpretation and review of laboratory results Abnormal [facility] Venipuncture immediately after or during the administration of Metamizole may lead to falsely low results. Testing should be performed immediately prior to Metamizole dosing. [facility] Lipaseon 07-20-2023 Lipase [Catalytic activity/Vol] 10 U/L 9 - 82 U/L [facility] Lipase [Catalytic activity/V ol]on 07-20-2023 Interpretation and review of laboratory results Normal [facility] Venipuncture immediately after or during the administration of Metamizole may lead to falsely low results. Testing should be performed immediately prior to Metamizole dosing. [facility] Triacylglycerol lipaseon Lipase [Catalytic activity/Vol] 10 U/L Normal - [facility] Comment on above: Order Comment: Venip uncture immediately after or during the administration of Metamizole may lead to falsely low results. Testing should be performed immediately prior to Metamizole dosing. Performed By: #### 3 040-3 #### JIMENA Mark ([id number]) [facility] ([facility]) [address] [place] [id number] Tropinin I.cardiac panel Hig h sensitivity methodon 07-20-2023 Interpretation and review of laboratory results Normal [facility] Less than 99th percentile of [...] performed using a different testing methodology at [facility] than at other [facility]. Direct result comparisons should only be made within the same method. [facility] Troponin I, High Sensitivity on 07-20-2023 Tropinin I.cardiac panel High sensitivity method ng/L 0 - 13 ng/L [facility] Troponin I.cardiac panelon 0 07-20-2023 Tropinin I.cardiac panel High sensitivity method <3 Normal 0-13 [facility] Comment on above: Order Comment: Venip uncture immediately after or during the administration of Metamizole may lead to falsely low results. Testing should be performed immediately prior to Metamizole dosing. Performed By: #### 2 524-7 #### JIMENA Mark ([id number]) [facility] (C) [address] [place] [address] Urinalysis complete W Reflex Culture panel (U)on 07-20-2023 Appearance (U) Hazy Abnormal Clear [facility] Bilirubin (U) [Mass/Vol] Negative NEGATIVE [facility] Color (U) Yellow Straw, Yellow [facility] Epithelial cells.squamous Auto (Urine sed) [#/Area] 1-9 (SPARSE) Reference range not established. /HPF [facility] Glucose Auto test strip (U) [Mass/Vol] Negative NEGATIVE mg/dL [facility] Interpretation and review of laboratory results Abnormal [facility] Ketones (U) [Mass/Vol] 80 (2+) Abnormal NEGAT JAMES mg/dL [facility] Leukocyte esterase Auto test strip Ql (U) Negative NEGATIVE [facility] Mucus Auto (Urine sed) [#/Area] 4+ Reference range not established. /LPF [facility] Nitrite Auto test strip Ql (U) Negative NEGATIVE [facility] pH (U) 9.0 [pH] Abnormal 5.0, 5.5, 6.0, 6.5, 7.0, 7.5, 8.0 [facility] Protein (U) [Mass/Vol] >=500 (3+) Abnormal NEGAT JAMES mg/dL [facility] RBC (U) [#/Vol] Negative NEGATIVE [facility] RBC Auto (Urine sed) [#/Area] 1-2 NONE, 1-2, 3-5 /HPF [facility] Specific gravity (U) [Rel density] 1.025 1.005 - 1.035 [facility] Urobilinogen (U) [Mass/Vol] mg/dL NINF - 2.0 mg/dL [facility] WBC Auto (Urine sed) [#/Area] 1-5 1-5, NONE /HPF [facility] Yeast.budding Computer assisted (U) [#/Area] PRESENT Abnormal NONE /HPF [facility] Appearance (U) Hazy Normal Clear [facility] Comment on above: Performed By: #### 5 8077-9 #### JIMENA Mark ([id number]) [facility] ([facility]) [address] [place] [address] Bilirubin (U) [Mass/Vol] Negative Normal NEGATIVE [facility] Comment on above: Performed By: #### 5 8077-9 #### JIMENA Mark ([id number]) [facility] ([facility]) [address] [place] [place] [address] Color (U) Yellow Normal Straw, Yellow [facility] Comment on above: Performed By: #### 5 8077-9 #### JIMENA Mark ([id number]) [facility] ([facility]) [address] [place] [address] 69963 Epithelial cells.squamous Auto (Urine sed) [#/Area] 1-9 (SPARSE) Normal Reference range not established. [facility] Comment on above: Performed By: #### 5 8077-9 #### JIMENA Mark ([id number]) [facility] ([facility]) [address] [place] [address] Glucose Auto test strip (U) [Mass/Vol] Negative Normal NEGATIVE [facility] Comment on above: Performed By: #### 5 8077-9 #### JIMENA Mark ([id number]) [facility] ([facility]) [address] [place] [address] Ketones (U) [Mass/Vol] 80 (2+) Abnormal NEGATIVE Un [facility] Comment on above: Performed By: #### 5 8077-9 #### JIMENA Mark ([id number]) [facility] ([facility]) [address] [place] [address]2483 Leukocyte esterase Auto test strip Ql (U) Negative Normal NEGATIVE [facility] Comment on above: Performed By: #### 5 8077-9 #### JIMENA Mark ([id number]) [facility] ([facility]) [address] [place] [address] 79004 Mucus Auto (Urine sed) [#/Area] 4+ /LPF Normal Reference range not established. [facility] Comment on above: Performed By: #### 5 8077-9 #### JIMENA Mark ([id number]) [facility] ([facility]) [address] [place] [address] Nitrite Auto test strip Ql (U) Negative Normal NEGATIVE [facility] Comment on above: Performed By: #### 5 8077-9 #### JIMENA Mark ([id number]) [facility] ([facility]) [address] [place] [address] pH (U) 9.0 [pH] Normal 5.0, 5.5, 6.0, 6.5, 7.0, 7.5, 8.0 [facility] Comment on above: Performed By: #### 5 8077-9 #### JIMENA Mark ([id number]) [facility] ([facility]) [address] [place] [address]45[address] Protein (U) [Mass/Vol] >=500 (3+) Normal NEGATIVE [facility] Comment on above: Performed By: #### 5 8077-9 #### JIMENA Mark ([id number]) [facility] ([facility]) [address] [place] [address] 45934 RBC (U) [#/Vol] Negative Normal NEGATIVE [facility] Comment on above: Performed By: #### 5 8077-9 #### JIMENA Mark ([id number]) [facility] ([facility]) [address] [place] [address] 86259 RBC Auto (Urine sed) [#/Area] 1-2 Normal NONE, 1-2, 3-5 [facility] Comment on above: Performed By: #### 5 8077-9 #### JIMENA Mark ([id number]) [facility] ([facility]) [address] [place] [address] Specific gravity (U) [Rel density] 1.025 Normal 1.005-1.035 [facility] Comment on above: Performed By: #### 5 8077-9 #### JIMENA Mark ([id number]) [facility] ([facility]) [address] [place] [address] Urobilinogen (U) [Mass/Vol] mg/dL Normal <2.0 [facility] Comment on above: Performed By: #### 5 8077-9 #### JIMENA Mark ([id number]) [facility] ([facility]) [address] [place] [address] WBC Auto (Urine sed) [#/Area] 1-5 Normal 1-5, NONE [facility] Comment on above: Performed By: #### 5 8077-9 #### JIMENA Mark ([id number]) [facility] ([facility]) [address] [place] [address] Yeast.budding Computer assisted (U) [#/Area] PRESENT Abnormal NONE [facility] Comment on above: Performed By: #### 5 8077-9 #### JIMENA Mark ([id number]) [facility] ([facility]) [address] [place] [address] XR CHEST 1 VIEWon 07-20-2023 XR CHEST 1 VIEW Interpreted By: Salina Stanton, STUDY: XR CHEST 1 VIEW; 07/20/2023 4:05 pm INDICATION: Signs/Symptoms:cp. COMPARISON: None. ACCESSION NUMBER(S): [id number] ORDERING CLINICIAN: ABIODUN OCHOA FINDINGS: Heart is normal in size. There is no consolidation or pleural fluid. The mediastinum and bones are unremarkable. There are bilateral nipple shadows. COMPARISON OF FINDING: IMPRESSION: No acute cardiopulmonary disease. MACRO: none Signed by: Salina Stanton 07/20/2023 4:17 PM Dictation workstation: [id number] Normal [facility] XR Chest Single viewon 07-19 No acute cardiopulmonary disease. MACRO: none Signed by: Salina Stanton 07/20/2023 4:17 PM Dictation workstation: [id number] [facility] Interpreted By: Salina Stanton, STUDY: XR CHEST 1 VIEW; 07/20/2023 4:05 pm INDICATION: Signs/Symptoms:cp. COMPARISON: None. ACCESSION NUMBER(S): [id number] ORDERING CLINICIAN: ABIODUN OCHOA FINDINGS: Heart is normal in size. There is no consolidation or pleural fluid. The mediastinum and bones are unremarkable. There are bilateral nipple shadows. COMPARISON OF FINDING: [facility] Salina Stanton MD - 07/20/2023 Interpreted By: Salina Stanton, STUDY: XR CHEST 1 VIEW; 07/20/2023 4:05 pm INDICATION: Signs/Symptoms:cp. COMPARISON: None. ACCESSION NUMBER(S): [id number] ORDERING CLINICIAN: ABIODUN OCHOA FINDINGS: Heart is normal in size. There is no consolidation or pleural fluid. The mediastinum and bones are unremarkable. There are bilateral nipple shadows. COMPARISON OF FINDING: IMPRESSION: No acute cardiopulmonary disease. MACRO: none Signed by: Salina Stanton 07/20/2023 4:17 PM Dictation workstation: [id number] [facility] Work Phone: Radiology Study observation (narrative) [facility] Work Phone: XR Chest Single viewOrdered By: Salina Stanton on 07-20-2023 [facility] Work Phone: Coding Summary.on 01-21-2021 Coding Summary. CD:[id number] G h0bWw+PGhlYWQ+EV1JMXW oO57wpPAjvN2FG4wDHO8R QJHAIJULMJ7NBK6jtWM3B FxmP6OovmMr NywnpOXpEI35JQc5QGL8a EpbKNgvlV0gsAIoJ4c6Iu TvTK55tC73VLwjNJPwOgK 3LjZpbjsgbWFy H2nxGcHggESiVke+PHRhY mxlIHdpZHRoPScxMDAlJy DzdJlcWK2cHa6zRUWrLRT vbGxhcHNlOiBj k9ffCBCdGTchTT1mtWloF 1PbcRY3PGJob5m6Wn61uH I+GPWcCAT6yAtdHVqyf52 8JoUhf0baEXP0 zRIlLEnbRFR6U92ln4G4U HAnRTAoPEZ7jWI4iK8wfN rkvvhhM2WpkARsHwM3YDO 6vCZguJ3agDru qbwniN5yKjg+L45IYY1UQ NRKMA4MBro4S2MkFroorC I+SJ86YMVtCV23mHPbqDL al4oecSo5GsCj LROnVTD0iIhhLVpvf5BpG BGtS20jqTWlw6W1TPVxoN abmOPtQqNxeLV8wS6lIYi wruxoe8cpxvjz Zqzee8jsbv68hU47S48cB SaxYRWsLUI1EUNaETSknH mzul8qsE7iNb3+LMvms7n ap8zytEx1ZuXx NQRokmQnpJgyVKV9h5EbP s92D6XngDcyr3CvRnx2by 78hNRwd8V4fRV6DOliADX uyS3ePFzeHrK8 SCMoGiOibM30bNFnQZlwV y1dnShygYbnXT2vNYLbam otRMNnrY9rOKTgjMGbeTl lKN0zPHEsdwgj g299OiXdULL8COUfvIOiK 3CadT2mPgIeFZMjFOCfE4 HiqCTxKVxpP921BGbsPqA 8AHTebeAxV7Aa VQBzqExuDfQ0b5D0Nq0Tt 8YfzpfhQOG3MUpzUIGzHn K2SqLaOmK8S6IkJvu6TYM akAndZA7jT0Mr IBFsuexdsldozNC9BYSrM XNhnJ14xDPxRSamEx6su7 J2d644CNSiQKChwR35Fy1 udDogMTBwdCBU hQ5xdvehi7mmgwpqCoHvA ACrARt2EYc1FTXdtEusEg QuIYJ9QbL6WYK4jKYqaA9 pbTvxkfwvdW8v Oyc+W98gpB2rPER2HEP1f easUCKrlnPiNO90VE81E8 RyPjwvdGFibGU+PGRpdiB cmJxqIX9aJoJa u8ydp5WrNXglZ5YnLBNyF AgnCoi6AZRrGZM5bPL1oK 7fHUBqZFwjb2I7pMO9K3C kuhKhpi6ok2ub PFHmHSktH16nhQZqw6A0G LJhjXA0SDZtyNfqWvPisU 93Oyc+OUWkzNuge4JmEfe cx3phd2clsLy7 LkOgTSGiepHhnEjwTUO3v 4YgBr23D62jOWmdIVNyZQ PqFZYbYWDlbFezbd0uiU4 wIi8+PGNvbCB3 eFX8yH2fNURnFoK5RDzqS 273EoCzbCVkLeafp2fwn2 potMe8WgXsKWUmngEpkZo eCLM4o2RdAa36 O38yDWimCBTcDHGzQGKbD BYfbYcohm1nrN8mAj9+PC 6wi4alxl39kA91oHK+PHR yVNO6sEcgXHbj XPQgdW0fSQzxGkJ1VCYyZ qRsmR97uMNpJZeoGe8moI lgeShpMP0mABByqstoh78 8FoFpz4dsGUQb nFZiJJyaXBZ4F43ty0U0R DUdWHGrDUM9nDE6kE4clY lnbjogbGVmdDsgdmVydGl eQAnnKRzoW733 IHRvcDsnPlBhdGllbnQgT rAfPOi3R1LhThk9WGKsrE vgPJ4anCOtAWvbIe6sbDr efMfuBP3pQZBd yucrx064XcJoq1czCIEdg MRsGGmbBHA7K83wv7J3IO McRVVpIFP7dIN2nM2trVg nbjogbGVmdDsg ggZxdHsuDFocNLeuK418S HRvcDsnPkJpcnRoIERhdG U5JK92ER58yBPoo0V4zXD 8P0CtBMOhvuss aluswLM8USVeZCBsmG01J r2fdOxxId4lHJZgKRL2WE IunCJzS0WefB8iCtKkQWQ rSAFqW6LydHXa DQxnP575NFxpUyD9HIBva vBpM1AfXLAwmVphYwG4s8 H6Jx5GC9H4AL66MN44cPI zm5Y2xOW2Q7Te NEEmjbfpblxvjUK4GFRsR YEmgG17Gl7ykXgwWu6kKL MrRRV1OQHomWQpS9JgyN5 yOiAjMDAwMDAw H0ZnlDKbNExkS796KItyW aL8IFHcheNeI7LqRXQxbA vyShQ0c5Z9Lr2KZXj8IP4 0DS22fAEwi6O6 gKW9Z1JtYODxdankhhaxm XA6RANvPPZxgI69Zh3mqZ giPx9dJMFpYOM4JZWqmGL iC0RloZ7oIsRs GKCeSMLhX7PsiLGkKQqbQ 557NRccRiW3HNDufgLaM4 BoKNSlyKzzWdS8x3E0Nk2 NCTMrJM68UUG3 rUT7OM06UG53B9YbAlyoq GFibGU+PHRhYmxlIHdpZH RoPScxMDAlJyBzdHlsZT0 yVs6qMCMbPWIu bOarnXKlImTcp7hcKFKhJ GzpNZ6deTjsI5MlgIT6SQ Vji6q1Xs58N60oP6MomYB +SGXmqQG2mTQ0 lR6dDgNwPeR8IQvfZ223O lKinZUgTycqg1ymo9ojlZ m7PaI9VDQwncXxfVfaTCJ 3g2JdEd75H51v IHdpZHRoPSIxNSUiIHZhb Uuhvq5fwV3mNs5+PGNvbC O5mGV8fR7uIcLtBtX7KZa uV899VgTwuMAf Lgnmr9eeo0isxVf7JhNdF LDhxeTtaSrmSRP1a7SaVo 98L9AbkHwyo5QqIlj4dm7 4mFKor5V0nRZ2 X5DnXENzqbrkjZNhlQzmE N0yKNYbnfhmQRBkpQ7mXY YoR2a1NaYzMaC1NMgpK9Q isbM5RWXjzHAb YWtoBBF5S42zl5X1BNPhE WBaQKU3qPF3oX6ruIjrxo ogbGVmdDsgdmVydGljYWw fSDfrJ805ZLGo kUoyHDMxxP3gOHOnkPJpz VznYO3cBYCiehapJoKBNB FGRVIsIEVSSUNBIExZTk4 3Z0KeQkc5SLBv lBfyLM9blNIcYTmyDm5lo QkggEhmNL0sDOEsjvruRX YqzG9qBANddJMojLueFB0 kAVWvblwut093 AeKlJUE6CGKezKYiQ9Ekp K7rFcEqVHKgCFMlD7AdwC GdSHezK892OHgpEcS5TWI ztxGrO7GmIWJj qFlvOlI1p3R1Zv0hXk1qK q9wFRl0DL72IF09zIBzi9 R2gIE2R2WxGTJblpgdvpa arPA5SUUrDWFn gX14nSHzDPhtYh4wh2J7b 911RKTkALDabG03Ej0iiX vfRQCxpCRTyN9srdpft0j vcjogIzAwMDAw MEh9GAh9IXIfhJnaNkMeW ZJ9NxZ9FAX5gYEhtO3tzY dwrxbnwC6lZty+MjYgWWV ycgC9W9ZjJsm4 FXAlbOzmQG2vwIXpVChtI m9lxNkcnMlsWI3dXKMhnt bbVXArhG9gGSPxyOPcvKg nFC0dFADpthhw e512MdGhZRT1BCUbkCHoY 3PurX8gSnItVJRvGRWeK9 RqxOPxWYsdF638AKzkMkG 5MIUtrqDfV6Yw GILrcTutDkJ1l1F5Hn9ZV D0mkBZ6V4ZnTqo7GJAcnG neFB2deMDiZSuoQk1ikGg aiOahNY2kFNPi scqwXJIerK4lCJGztTZwf McgSU9tWNCdojrdz107Lm JqAEJ4WOPuvFCoJ5HkgP6 yOiAjMDAwMDAw H3WrwGVjCOtaE288NXikY pN3WSQlkbGkN0CtKHWjsM xoXzV0k6T6Sc1CvIGmUWU xDA29HI02VO46 A2KaIhbhmKUhvAF+PHRhY mxlIHdpZHRoPScxMDAlJy CfrQjeXF2kLy6oSZXgSNE vbGxhcHNlOiBj s5qyYEVpZDeaKJ4leJtgY 3WiwVT8FKKer9m2Yi70M6 7oR6MmcGS+DYYhgLH8qJS 0pG5bBtGxNcK9 EQjsK475EbNogZEyTmimt 2qxq6vsxJf5AfUgYALtgo NndOrgDUQ9b2GlWl29W12 sIHdpZHRoPSIy CFQeIYQasBsbhi7fuD4zE i8+DHNsnHV0uGY9qK1tCy JrInD4SYmtQ317MbKdmFX oEkddM97oQ5Fj dXA+MUTcYwr9VMCbxNhsW S3mmWGoJDlrRt5lMNO0Dh RvLxDsHOwmO5UkVEWzfye nfkgfiYP7PAKl WNZmnL08Dp2omNxeBh1oZ GSuQAN8YEVcqRCsN9WoeT 4xSdMjLMIwSFZfJ3XosPV mZPyxR213DUir UuX9SYJncaIyL2NoXAKjt ZzyHwY8k1O3Tl8FxOuriF JxLF6hLcHpIWz1W6SlUod 5HDQjxKexNW1n cDBwVBviFm6ahPrktHopL D5kDCIxewond414HkQwv4 hpYVJzyRGqLRagQGS3C15 zj1R2TZCnBGCi BDZ2cDT5gC7stZiiwupiy GVmdDsgdmVydGljYWwtYW uoE515QNGzyFauGeECGod 0X5XqBqf9KQRr uDvmRA4oqIDyGUcjBo4dx FyphTynWD8aFWGywwwpw6 20VsEyl8zcSOOhlRZzJWr kNBN0V52tx8M1 JYUnKFCuKCG5cXT9yB2wn GlnbjogbGVmdDsgdmVydG pnMDoaPXuiG915HOIjzNt gCk3KPpb7I8Df Cqo6TKRseEptOY6ynUZtA KvdQu5icLwusWpxLF1lWW Gvkorfm556UzXzn6hpSRQ wcHQgVGltZXM7 N71wd9Y5LHCuZSZgGYP4j PO1vZ1ohOoehnemoUGpwI zquwIpiCvfUJlbLEfjV95 6IHRvcDsnPlBh eWVyOjwvdGQ+UX74xb52O 2IaWhlrQnf6AOPyOFW8kQ P2bN2wLPOjIZfou2T4fIN 0W9IpmhGcvv9f b2xs (more content not included)... Normal [facility] Coding Summary. CD:[id number] G h0bWw+PGhlYWQ+NW5LDBT rN32paGVfpZ5KJ4jISN8G NCFEHKBAUM6XHG2oiFA2N XduD6QnucDf JtgmrNYfKN25ZQw6VOW1w ArxXZcxwB9lvEGlE6z1Bd AwNI97fJ73NOjnAIZsEhE 3LjZpbjsgbWFy G3qwLhDdgESvYxe+PHRhY mxlIHdpZHRoPScxMDAlJy LffBnbLW1lBn7kOKFcTTA vbGxhcHNlOiBj w9mlRLAaEDwjDI4lzRtbD 5IdoFI7CZGyt3z1Ro28bJ I+ZINjOKB5uNogOEgly75 7MfLxr9roSDW3 uWLiLCpqYUH9B12cw9H0D QUjYRMhNIZ9rAI7pS9hsI tedksdW4OzhIFtLtG0ROH 6mNIprW1vuOic cnwgzY8aXlx+C29IWJ2ER UOUFB0YWud5H5QgNzxmrM I+MT61NZKyON10bUHdvTO kb4wmdLq3BrHc KPBiEXH6iPgyULjzl2VxW AYzH03ukIMbt0Q7OPAfkJ yoxTDdPkAuoEZ5nG5hUFp wswbry7ubjgtb Vocmv2fcbi88tB58I07pK EevKUTgVXE4NYLtZPXacD pzlt3tcR3rIl3+JUbcu5u ds5iokXb7XsPg OJAdztOseHylZSM6i0ArQ s25R9LmeUjer0ByQki7lx 86iOTpf3Q0hCN3YIlrYWV nnG7yHCysNsZ2 ZKRaViYlgM62fLKgHMhtF t7kbThgaFnwXW7rJWSkve agNBWwxC9iYYQwcSQklUq qSA4nVUToritv v220HyTjWOC0TXGhyGRhQ 6VfgK2hZyCnQUBjBFWjF7 DnrUSjGDjrU580SKhbTyG 1HDQtsgSlS3Xj GIRgqUcsIeR0p8T7Mv0Qf 0CvndfbLYQ1UYbeNMGcDq E4JuHpFdT3Y2DqUtr6JBZ ccKrxTM3kA6Og OEAxvsfbxmvlbLG3COCwC CUckV39aWGfUQqaJm5pm8 H5y749DBXvYYOtcS89Gf3 udDogMTBwdCBU aE1vwzezt2fwhkrcVbCaN GEcCQo3XOx0DFUuwVzuAi TpAAU5IcF8BRQ2lTEokX8 lhTcqzxdgcG4p Oyc+M55leA4rWRZ8YIZ1f rchHSKiwaSzAO08YL23X4 RyPjwvdGFibGU+PGRpdiB faKbrWR6uQhYd h7blb0KaRIyfK9QfYOXhK GnuDbo2CTPcLVI3tUE3pE 0hDQBgOVtbg4C7gTR6P7H pqwAhxh9fg3zh SDPbQJfiY57xjAFxf8G3A KAptQA2OYMvrZakYzYcsA 93Oyc+VSGnrTplp8HnNme km8vfr2ajfWz2 ItOaOXTxtaLatWfrKIF6d 1FoNi99R73sZAorMGYqGW VtVYTnISWguEosxb1ctX9 wIi8+PGNvbCB3 eJN0iE5aVHIcSaV0EUyiV 530NdQpxFTfYrryl1gfg7 mobLs6BlVcZQHgvfVrwHk nTOQ5z1NbXk62 P43lBDqiXGOqUTSpEYKwE DUagBaoeh0xfY9cEj3+PC 9np3ycet71xO35pUD+PHR iJFX0iIzgBJcf MXUveC3cZPcoGaC3SATzH nCtgZ65nKQwCWqhZg1tvK usnMgfUT6yTIQhscmoc99 2WaUtw8liFDZd hXCxEKisAWD0H31ah0O0M QXxCXIrTLN7aIG8xZ7tkH lnbjogbGVmdDsgdmVydGl xCMrePCpaK803 IHRvcDsnPlBhdGllbnQgT zDhCBp7Y3JvLst7MXOoqT ktRD9kaNXhWBawFd0hpGp cxHlcPQ6wAUOi kntua934JfVjy0yfWVAib XImZHweXOH8T75ct3I0EA BlRHYnVEN7tEK0nA0wzJb nbjogbGVmdDsg qfTjaAfbTNwhRFmiY759P HRvcDsnPkJpcnRoIERhdG K5MD52CZ64lVZdz0E1lYJ 8D7DdKMKmdtsy xpahdCJ4SDHxPTDslD14J l6pmIwdOq1mYHYqBPF9YY QspWLnY4YuzC8xIzIhSMB oJZOsT3RrjSXy CJpjF369SUdkUdS7ADKll iZgO4AmHGKotWsqBkE5d3 M0Gq0XU0L2XU13XW04mBF de9H5vEH8T1Aw XGIgjugnbzawrJY6UOReU GBhmI32Px6wqCckGy7iOE BmEZM8TRKvwPMeY8KylP2 yOiAjMDAwMDAw C6LhrTDpAWsvL438SBmjR uQ3VDUtogEtK3UpCXPulF ojTfY2r0G3Li0IJOp9YQ4 1IU31zGTsa2U7 mDX0G1OyPICypvqmiowlg QV8BZQhNDOthK09Mm4ldF cxEm5oQQLjMFV5UJMcsSX kJ9HkeQ8nXjJj HJJgEDMxU9PndWPyQZsqN 113ONzdGvD9QGFwdjBbL9 VjQQBunGyiSeK5z2I1Aj5 HNRUmIJ76CFF5 rUE7RO10WJ82Q6UiFqhms GFibGU+PHRhYmxlIHdpZH RoPScxMDAlJyBzdHlsZT0 hRh3zSCXaDQUn fHlkdQDpNrXpa3xlMGQbT HgxGF3viJkfH4UkhVA6MY Xjo7e1Pc34Y84aJ7EdiJK +TJUokVI9pTS8 eR0dWkQgYlJ2RYndW002L cMmmDZsPzxba0lah9sdjX l1YuP7NMReczGtuEflSKS 4d2FvPk59A95o IHdpZHRoPSIxNSUiIHZhb Piysz9uhR1qRm7+PGNvbC S5yCW4qN2eMfNyJlN4MUa xB317SaUlrKId Shbwj8ygp3qsuMi5DrReO WPhyzHgnQujGOU0f2OhSf 67I0EvjRpvb8TyDjt5ep4 9fFTrm9W3aBU4 F0DzKAHoldzthCBozLxhA O3eLLJwkktwZXCzyL3dHU NkM5e7EgHlXvP8IXnjV3Y ozxX3BULpnTPb WWhcSBA7T87dv8F6NMGkK HBxSMZ0tOO0uM9bpAkuye ogbGVmdDsgdmVydGljYWw jPDsrC641BATz xDpcQXHbmR6vDLEjxDSjf NgmAM6kZJCbwualSzGSRW FGRVIsIEVSSUNBIExZTk4 7L8PmRlv9PRJh zLflGK8mdAUhGLlfBk9qa OxcyXqzSI8dDNXccegpHP UcrP7pABZarREkyFfiWU3 jFKJdsjlun010 WbJeRWK9QAFcoCVeB9Vwz O1dPxGyPCQuCQIaW4QdfE FzPQlhG842FOabIaG0RXY jnnQnX5ZrPMFj mGdbEeK3v9Z4Fq6aHe0cQ d4sGKh9BZ16UL40wXHaw2 K9iMY3W8NvMDBsheemutv zpTN1JEQgZYAj iL77hHFjDGlkKt2zy2S8r 872UOBzOFEkqE16Ic5bjT kqPLKojLTWwN5pdddcm6m vcjogIzAwMDAw YYn7SKc9BNNahMmcQzDpG RQ7UoE3TAR4qYKudF4otT vvbepidV3hSsc+MjYgWWV pwjN4M4BgIhi2 UUSvvJcoUF2woJRpLJlsV e9paBmnyKidPV8cRMArsp trPYTdcZ5jWHCxiPCjkYz fVV6tZGStqlrj h471GgFyUPH7WMGusLFiX 3FcoV6vAwAtZXDeXKGqS4 TreMWfNVtcY700ACccEnF 9GLSbtsUxE2Vb PJVucCxyMaL0p1E4Wc2BK U1bjYQ1Z9CbTne8AMAdvZ qiWP4rvGPaRCobCi6lvAa fjVqjAL1yULNx efsfFMLebR6nWMVgaGIpl EgnNC6vXBTmcxsjp178Wo VlEHW6KJVxbINoZ9SpnW4 yOiAjMDAwMDAw S8FjfVBxDGanY933NWndS lM0AUOjnsPmK9UxEWYpvX gxMsE9i0Y6Ks5PwYClGJA dKL34WX99DL28 R1PoQqwsbTCspNU+PHRhY mxlIHdpZHRoPScxMDAlJy EfnFmnXB1sEe2xWPLnOMN vbGxhcHNlOiBj z7hdRCFtDOciTP3aaHivL 1VakZB1HUZbu7z5Kc51D1 1zU2FkjKY+UBFujVI0wNW 0xI0jJwFfCvB3 FJryR374TjOffACtIxoed 4bhe8bzsAq5CgBjVDBjay UezBiuMDP2r3IaCj12C48 sIHdpZHRoPSIy ZZKeMHLktTaeaz2ijT0aK i8+SCDyiFL2eQZ3pD2kYz ArJyQ6SMrqJ100TaXvrIJ bYetyI55zW0Qr dXA+IWPvSbw5MYUzgPmfQ T6rhTSgOWyfJn1lKDW1So NyDqVzQFquQ6GiTSFaivu bxhpgzZQ9NGLo CCZizS60Jq1tkUxvSb2wJ ETmJWP3JLGpoJEpO8PkzD 9kOdJkBTLhMOLeW2IozRV nGDjzP612FFkp OnJ3XIDxjkPbM0AiPJYlt EhbCaX2c2V6Iv9KrZaxlU ElRI6rInZuCDp4Z0GgWpn 1OLBxhQreVF5s pAAwQZwjVn3kiQxzdVsyD K7tANQuyapqy739ElGvk4 mbNZYalYOkMOyjDPM9K02 zs6P0RTScITBq WCQ4dZJ6cA0ntLegyxtho GVmdDsgdmVydGljYWwtYW fvA480BFBhiTzaZcDRGbp 0L4FuLsd7BNPe hKfpLU7ujFNlUCrcYs9er RldsQjhZJ5iBKVsbqfxr2 82WuUki0bxVIDreUHwFGb wUXC4T20ch0Z4 WJSuADWlFXC3dJV7eM9fy GlnbjogbGVmdDsgdmVydG jvBAmcRElhM235YPRhlBk tGt0UGhr4H2Lx Duk3NIEmiAvoQZ5omUMpD ElxOw8utPeooNolYP9uXC Nrjutme754HfCdo2znUKF wcHQgVGltZXM7 J74wz7O1OLAmSHGfDYS5s MW9qT3ihYtczzqhmDAjmY pueoErxSxlIPuuUXxeF01 6IHRvcDsnPlBh eWVyOjwvdGQ+DJ81tg01L 6PdZvydNjz6FRXtDZK9zL H3gS3eDZFsRGbvj0M9kEK 6D0RociMjoo1o b2xs (more content not included)... [facility] XR HYSTEROSALPINGOGRAMon XR HYSTEROSALPINGOGRAM * * [...] nondilated tubes. No spillage. 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 Cartographic Designer: PSCB Transcribe Date/Time: Jan 20 2021 1:37P Dictated by : DAYANNA LEROY MD This examination was interpreted and the report reviewed and electronically signed by: DAYANNA LEROY MD on Jan 20 2021 1:45PM EST [id number] N [facility] Rubella IgGon 01-05-2021 Rubella virus IgG Qn (S) 20.80 [IU]/mL Invalid Interpretation Code Immune >0.99 [facility] Comment on above: Result Comment: Non- immune <0.90 Equivocal 0.90 - 0.99 Immune >0.99 Performed at: [facility] [id number] PhD Randa Ochoa Performed By: #### 5 [id number] #### [facility] [address] [place] [address] Varic IgGon 01-05-2021 VZV IgG IA Qn (S) 207 Invalid Interpretation Code Immune >165 [facility] Comment on above: Result Comment: Nega tive <135 Equivocal 135 - 165 Positive >165 A positive result generally indicates exposure to the pathogen or administration of specific immunoglobulins, but it is not indication of active infection or stage of disease. Performed at: [facility] [address], [place] [id number] PhD Randa Ochoa Performed By: #### 5 [id number] #### [facility] [address] [place] [address] Consent for Treatmenton Consent for Treatment [id number]#1 .00CD:127 Normal [facility] Consent for Treatment [id number]#1 .00CD:127 Normal [facility] Free T4on 01-03-2021 Free T4 [Mass/Vol] 0.75 ng/dL Normal 0.58-1.64 [facility] Comment on above: Performed By: #### 2 [id number] #### [facility] [address] [place] [address] FamV7spi 01-03-2021 HbA1c (Bld) [Mass fraction] 5.4 % Normal <=5.9 [facility] Comment on above: Performed By: #### 5 [id number], [id number] #### [facility] [address] [place] [address] Physician Orderon 01-03-2021 Physician Order [id number]# 1.00CD:127 Normal [facility] Physician Order [id number]# 1.00CD:127 Normal [facility] Prolactinon 01-03-2021 Prolactin [Mass/Vol] 45.14 ng/mL High 3.34-26.72 [facility] Comment on above: Performed By: #### 5 [id number], [id number], [id number] #### [facility] [address] [place] [address] TSHon 01-03-2021 TSH Qn 2.09 m[IU]/L Normal 0.34-5.60 [facility] Comment on above: Performed By: #### 2 [id number], [id number] #### [facility] [address] [place] [address] Vitamin D 25 Hydroxyon 01-03 25-hydroxyvitamin D3 [Mass/Vol] 58.1 ng/mL Normal 30.0-100.0 [facility] Comment on above: Result Comment: Vit sarabia D deficiency has been defined as a level of serum 25-OH vitamin D less than 20 ng/mL (1,2) by the [place] of [employer] and an Endocrine Society practice guideline. The Endocrine Society further defined vitamin D insufficiency as a level between 21 and 29 ng/mL (2). 1. IOM ([place] of Medicine). 2010. Dietary reference intakes for calcium and D. [place]: The National Academies Press. 2. Carola MF, Pita ELLINGTON, Donna HERNANDES, et al. Evaluation, treatment, and prevention of vitamin D deficiency: an Endocrine Society clinical practice guideline. JCEM. 2010; 96 (7):1911-30. Performed By: #### 5 [id number] #### [facility] [address] [place] [address] Coding Summary.on 11-21-2020 Coding Summary. CD:[id number] G h0bWw+PGhlYWQ+CZ4YSXQ qG71ugVIzyJ4BA8xXLV4H PYXVVNAEHX6MMU9hpXA1Q MqwA3XvikJj KnzjgMRlYI39XYm2UFQ0g TfvPZtwgW9zmDNxW3r1Dy FjPV62bS80TEngVZDlOsO 3LjZpbjsgbWFy B9ouRtJegUZhGib+PHRhY mxlIHdpZHRoPScxMDAlJy BvqLijCD3mLv1cBWHeKTD vbGxhcHNlOiBj g9fmXXZiYCtqNF2laZupV 3EpjMM4TZTci6i2Pb80aM I+TGSoWJI9rKuyRKsfp04 1MhRvr7wgZVV9 yHDmWDvaQMA4I68fp6E0J PUiEHKnAER6pAN8oZ7aeP miqharX3CixXAdJgQ8GRO 7nZFqwN5leEdn xfullN7sBct+E13FEK6UP KODUA0VCbk5D4ZbXkeitT I+YL27RYTvTG34pVIvrEU zg6aecUe2VtDr VKXxDMZ8vHozJPvuv5XmI UAiO17llCEoh9S6QXHvmA lduPDiOzOcfSX7aL7sOEp jwdpfe0bzorxa Bdlnu2acyt27pZ49W03pF ZwkDKSoBPE2BSBgXFXtlY ovzg4mmX9qAh2+ONrki3v hz6lteQe4HaMu POFahyGsaIkoCHW7z9WfU p08D1VoiRqsw8FwJhx9df 38bQIgd0M7oNO7QGxpHGS cnT2dSXkmIiJ9 YKDsXeGixN61bUHxJPjjJ g0tgSircBplCJ1zOOVrae ltXOOlcL2mTXQpuFXibNw mKK0gAQPegfzc x691QvJjWEJ4MPNmbPQtE 6VwmD2oEbIqPQTrTGNtV8 JueHVgFChgB667TEsjBwW 3ZIYlvhViC0Uc DBKroEgvUnF2y2J5Ix3Xh 4WvxhamZXN0OMujKJP3Vd G7FmDyJaN2J8XkBle2XZO zqRpzQZ6gR2Kb JTSzlhlanhtpwIF5ZBZgA OLonT88eYAhTApgCd0gi6 P9n251LROzZOSkhK67Lt8 udDogMTBwdCBU nZ7spgibp7ceblthFaOpS GRxAEv2HPg1ICNadQofPa GpBHO3MrR4PJX2wNVrmW0 pwSwrfmxvzM5y Oyc+O76myV5bPII4KPM7d uqgQYQpndCtIM78HD00L2 RyPjwvdGFibGU+PGRpdiB dsZydPA0aPhUq o7rij6KmSHkoR1WhPJFwK QopJzj0EBJzKSK9zGJ0qD 7oLNGdQMazp7L8sTQ0B5R elnGlhd3td4kp QCYtWZmdI42obCShp9J5F WAxsXL7WMPmoUbjHtOeyT 93Oyc+ILTleKrrt4PsAlq cp5tcz7rsjXz6 CqJpCMJttjPmcGsxNET9c 7HoNp24D38oDVqyAXKuDT UbVRArXELczTmqea1tcD5 wIi8+PGNvbCB3 qDI5vE2lJNThVuO0YYkkL 046JrAbgYLwDiixu0oma4 wogIc2JqXwAPKhnsHpyVz gEXX9a6ByZo08 N82cMKkuKFYeGTChWNCsS CVvgEngpj4qjG0yDc7+PC 8dn7pdsp23yK04yOE+PHR cDSZ8mLvwRWsd HLQawU0aRCfqTmE6MLZcT lBolX06nYMpVKgvAl2caK zdzRthDZ3xPTZtgpdap35 3XyRsv0ohUQYy qGAaJGqoEWC0R47bo2J0K OJcNZTiVDZ6oFU5uA2uiS lnbjogbGVmdDsgdmVydGl sKUctLSmlJ287 IHRvcDsnPlBhdGllbnQgT gQeUNr5L5MoSak4NTXpgJ adAZ6pfCVtYKeoVb1snTu oiRihCX3iJSBc wiaym485QvTkf8vhAORnu MUdHTemEXF0C44ob8S6NE NqOPMxKWI1iYT6dS1ewVk nbjogbGVmdDsg vnRjeKnfMOttLUfcE185F HRvcDsnPkJpcnRoIERhdG F9TI55FU32bTYbn9P4eVM 2Q7IaEWWvwasb nfvlbQM3YYYfAHZpmJ73P i7rcMfwWi2eNUYvLNX8AX NomLNgF8CilH7jVbWzOVG tDYSmL5VcuVJq IKrzR759LLjnMhP3OUNii wGgE8IhMAEtxCwvOdZ7r8 O7Tc5QD5Y9KU19OS84fAB ju2O2qQH9G8Xd KDChggvaokzqlZZ6ABJvK PEjbC62Ji2rdWotGc7sYS RgRZA7REHwpEVbT1WytA6 yOiAjMDAwMDAw G1QxyTJoGHgaC228BFqtJ mF6SCNluaKlN2XlAEXbqG bjLzS3l9O0Gn2SQNy4CJ0 2QP98fCHxr1Q2 zWM4D6IgTSLzivzksdmrq FP5XFYgPLFeeM44Lu9jpX ycSh6uUDEqWJB4BPBquRO oW8JzrP6bCzTv CDFzSDIwD6AtvWRhBAbrF 517LCypXkV2WFZorlHqD6 RgRAZqeWldTgE6m3L5Eh4 GGVBkRM24JUC9 pXL3NF77FT68T4TxGqoya GFibGU+PHRhYmxlIHdpZH RoPScxMDAlJyBzdHlsZT0 zBa7dKIKhVVBa hPqvbMDhIwVgh5gaZJXuJ JyhNZ4meWosM4KbxVS5EG Fdf6u3Jc48Z04gC0XpsHT +OSRsfLC7sTM4 iA1xJiWbPcQ2YSnpH913B pNcfOWhQxtym3lbw7bbzE u0WmW5KDCjchPdsPaxDSR 7j4RmUf89N95x IHdpZHRoPSIxNSUiIHZhb Gatcu3qgP5xZa9+PGNvbC H6aJH4aI7bGdKaMcI4YJg nJ054KqYwsXUf Vftrs5qxt2ogoIr6VzJbO BMyesAtgPfaEDE3f5TqVc 06L3BvuUkfv4ZtDhm0gz5 6kCTtn1N3aKT6 Y7WoFGModzhoiWFsjRcqZ V8nUAVmnfhmCLKukQ5cBH ZwC9u1ViVzMtO1ELbeX9H urnY1CGFrkWTe HLzaSKB5Q03ft7C5NPXtL HNqMIG3mGF6pX6akHwmcz ogbGVmdDsgdmVydGljYWw kGNpjZ928MSAt aJqcZIJktZ9mFZWiaJVdp MvjBI8iBCNdyselBvXIQF FGRVIsIEVSSUNBIExZTk4 2V2AdVtw5VIVm xGanLE2ygLTsTRwzOr3sk CxoeKnaDH9gNOScccawMH DvqM0xPXGppYFcyKvbGS8 bCULdzqjmg256 WfYqWMZ1YPLjnIObU8Hum P5gXmCwOOZbAEZqX1LpgV RmKOxaI118NBvjQpG0ALG zhjLkG0TmYXQa bVcdCgK7j3Y9Lk2cRr9lJ o4cQVu1KB65KX26zPZyk2 F6mRR1M7OcUIKgxgnfuhc jjEZ5CXEhFSJf oS74hSZhGGiuCk0no4K5w 850OXAhDSEljL65Nm6shE hmSBQlpOVJyZ5oajvvq4i vcjogIzAwMDAw JOy6HBg8YVXepRjqDuPeT QT8KaA8SKS1rCJxtV7ozO gtooksyI2pDej+MjYgWWV pgiS8Q7PvTvr5 RQQjcZpjZN7glGUsARuzQ w0yvQemhZeyDA4jZWUhbo tnEXYxtI2hBVHinDUbqPu vRK8hXKFleigp p629TvCsXUV3VRLipZIfH 7XdvZ1oEaYrCONpYNHjJ3 XqrMEiJEdkE477OAbpVeL 9ISOadmQiF6Uv FQSknDfpOtE3y3Q1Yn7DK K0zcYE7E4OcCfh8GOAymL gcKR7hcCKsRMnmWm0qlKz ntYigNU0uDNHu uaehPYZedV9tQMBjjHGdy FqvEM4mUNAjkekdj602Wl OfLKX5NLXgaPPrE1XbpT9 yOiAjMDAwMDAw G7NrnPDxGVxsC020UPocK xU8WHPalrDsT7UjXDChtK jfHyC7n3G4Bu2YTDNcZFT gmPNnVoI8N7Ex PjwvdHI+QS18DWSjGA20s KWmpRVic3lbkFv6IsFnHI IlXJS5gOhgRDwyw5WkOGR zG64mtLVba7E4 OBQrdXpimTRtIvBmqXO3f B0vAZejwfrya6fvrpbuTy lnj3pxbh61kC29S52iHWi pZHRoPSIzMCUi XZWzqPbvxz1scF7rSj8+P WWgfAF8zJK9zQ2nTnUuYd A3PFngI946WyKxgAYbQfe ps1kqh1pvfIa6 NpEdGCBnpqYibKlcOCI2w 8WmFc61L68zUAqmWSBjFP ZcMLJbPEWqwFhftr6puS8 wIi8+XO2yq1ua ma04wT65hCQ+DMNgCSF7p DheTYjuHDZchI4vRUdqBv W3NDNpNhIdeE43aGIrCQs yUv7eoPvzmXdp YU5vAHTqypxec029ZvSfo 5agLKKguCXwTEneDYM6Z6 7jm3G8ZDPnQRXtRHK7oAL 1rP9lwLatscys bGVmdDsgdmVydGljYWwtY XbvF603CAGvhZcyZfZhdL ZmL1horxKSXL1yUkqrsTD +ATCoLZP2uJcj KWnoWSXugM5bTXWkS4g9D xRuZxV3BFrzX0DmmlO4LS ChvNAgLQBpmGWLrF0quro hp4vmhzxkOxNz MKXgOJr8VCi5LCFgeAljZ iAgZJO2PcA4AKE3pOApdO 9faRlcfpsqaU5uCqx+Rkl OOjwvdGQ+PHRk GJZ1eKqmNKwbTCWopZ1fM LQqF8v8FxLnTyF2PFvdJ2 HtzvO5GUPrsAFbTVOuyUJ BxA5tnsmqk8wb gwhsXiJyQRTfMJz7QOh8V DCymAhtXtLrRQB3DqQ1YR Y1cPEyfO0xkHxcynbwsP8 wOyc+TVJOOjwv dGQ+VEBrBMP6qFfoJEuyR JEnpF7cLTDuO2i0WoHdBf R0HKpkJ1LjrqP9FYMdnYS rFYPqhKYDlK5f ywtvx9xbfhdcStPyGXQpV Yi9VTa2FQQrgOngCfXoZO A0RbY9KSW6nBLcuH9kjTi oxjduwA0kBcn+ XNV4QRB3NC74BW54R3DaQ jwvdGFibGU+PHRhYmxlIH dpZHRoPScxMDAlJyBzdHl tDP6lCx7yATHo LWNv (more content not included)... Normal [facility] COVID-19 ([facility])on 11-05-2020 SARS-CoV-2 (COVID-19) RNA REEMA+probe Ql (Unsp spec) Not detected Normal Not Detected [facility] Comment on above: Result Comment: This test result should be correlated with clinical presentations and medical history by a healthcare provider to determine its clinical significance. This assay was performed by a reverse transcriptase real-time polymerase chain reaction (rt PCR) method on the [employer] system. This test has been authorized only [...] or revoked sooner. Performed By: #### 2 [id number] #### [facility] [address] [place] [address] SARS-CoV-2 (COVID-19) RNA REEMA+probe Ql (Unsp spec) Pass Normal Pass [facility] Comment on above: Performed By: #### 2 [id number] #### [facility] [address] [place] [address] Specimen source Nom (Unsp spec) Nasal Normal [facility] Comment on above: Performed By: #### 2 [id number] #### [facility] [address] [place] [address] Consent for Treatmenton Consent for Treatment [id number]:127 Normal [facility] COVID-19 ([facility])on 11-02-2020 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 NO Normal [facility] Comment on above: Performed By: #### 2 [id number] #### [facility] [address] [place] [address] ICU NO Normal [facility] Comment on above: Performed By: #### 2 [id number] #### [facility] [address] [place] [address] ? Unknown Normal [facility] Comment on above: Performed By: #### 2 [id number] #### [facility] [address] [place] [address] Resides in a Congregate Care Setting Unknown Normal [facility] Comment on above: Performed By: #### 2 [id number] #### [facility] [address] [place] [address] Symptomatic as defined by CDC YES Normal [facility] Comment on above: Performed By: #### 2 [id number] #### [facility] [address] [place] [address] Physician Orderon 08-27-2020 Physician Order [id number]:127 Normal [facility] URon 03-22-2020 , QUAL Negative Normal NEGATIVE [facility] Comment on above: Performed By: #### P REGU #### [facility] [address] [address] Juany Mccarthy Covid-19 PCR (CVDTB)on 02-02 Covid-19 PCR DETECTED Abnormal NOT DETECTED [facility] Comment on above: Result Comment: This test is not yet approved or cleared by the [place] FDA. When there are no FDA-approved or cleared tests available, and other criteria are met, FDA can make tests available under an emergency access mechanism called an Emergency Use Authorization (EUA). The EUA for this test is supported by the [place] of Health and Human Service's (HHS's) declaration [...] longer be used). Performed By: #### C VDTBH #### [facility] [address], [place] [address] Juany Mccarthy EUA Statement SEE BELOW Normal The [facility] Comment on above: Result Comment: This test is not yet approved or cleared by the [place] FDA. When there are no FDA-approved or cleared tests available, and other criteria are met, FDA can make tests available under an emergency access mechanism called an Emergency Use Authorization (EUA). The EUA for this test is supported by the [place] of Health and Human Service?s (HHS?s) declaration [...] consistent with SARS-CoV-2. Performed By: #### [facility] #### [facility] [address], [place] [address] Juany Mccarthy Vital Signs Date Time Vital Sign Value Performing Clinician Facility 09-13-2023 14:52-0400 Blood Pressure Location [employer] [facility] 09-13-2023 14:52-0400 Diastolic blood pressure 82 mm[Hg] [facility] [employer] [place] [facility] 09-13-2023 14:52-0400 Heart rate 78 /min [employer] 09-13-2023 14:52-0400 Respiratory rate 16 /min [employer] [place] [facility] 09-13-2023 14:52-0400 Systolic blood pressure 110 mm[Hg] [employer] [place] [facility] 07-20-2023 18:58-0400 Body temperature 98.49 [degF] Ousmane Danielson MD Work Phone: [facility] 07-20-2023 18:58-0400 Diastolic blood pressure 83 mm[Hg] Ousmane Danielson MD Work Phone: [facility] 07-20-2023 18:58-0400 Heart rate 52 /min Ousmane Danielson MD Work Phone: [facility] 07-20-2023 18:58-0400 Respiratory rate 18 /min Ousmane Danielson MD Work Phone: [facility] 07-20-2023 18:58-0400 SaO2% (BldA) [Mass fraction] 98 % Ousmane Danielson MD Work Phone: [facility] 07-20-2023 18:58-0400 Systolic blood pressure 135 mm[Hg] Ousmane Danielson MD Work Phone: [facility] 07-20-2023 13:40-0400 Body height 167.6 cm Ousmane Danielson MD Work Phone: [facility] 07-20-2023 13:40-0400 Body mass index (BMI) [Ratio] 19.05 kg/m2 Ousmane Danielson MD Work Phone: [facility] 07-20-2023 13:40-0400 Body weight 53.52 kg Ousmane Danielson MD Work Phone: [facility] Encounters Encounter Date Encounter Type Care Provider Facility Start: 09-13-2023 End: 09-13-2023 ambulatory Carolyne Edmonds Facility:[facility] Start: 09-13-2023 End: 09-13-2023 Patient encounter procedure Alex Knutson [facility] Start: 2023 ambulatory Carolyne Edmonds Facility:[facility] Start: 08-23-2023 End: 08-23-2023 ambulatory CAROLYNE EDMONDS Not Available Start: 08-14-2023 Telephone encounter Elton Hand MD Work Phone: Endocrinology Comment on above: Results Start: 07-26-2023 End: 07-26-2023 ambulatory CAROLYNE EDMONDS Not Available Start: 07-20-2023 End: 07-20-2023 Emergency department patient visit Ousmane Danielson MD Work Phone: [facility] Comment on above: Nausea and vomiting, unspecified vomiting type (Primary Dx); Gastritis, presence of bleeding unspecified, unspecified chronicity, unspecified gastritis type Start: 06-13-2023 End: 06-13-2023 [facility] Elton Cummings MD Work Phone: Endocrinology Comment on above: Prolactinoma (HCC) ( Primary Dx); 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HCC); Elevated prolactin level Start: 05-24-2023 End: 05-24-2023 ambulatory CAROLYNE EDMONDS Not Available Start: 03-19-2023 End: 03-19-2023 ambulatory MARZENA MEADE Not Available Start: 02-22-2023 End: 02-22-2023 ambulatory CAROLYNE EDMONDS Not Available Start: 03-22-2020 End: 03-22-2020 Patient encounter procedure YASMIN MCGEEILDEFONSOShan Facility:[facility] Start: 03-03-2020 Encounter for preprocedural laboratory examination YASMIN MARTINEZ [facility] Start: 02-25-2020 Encounter for other preprocedural examination YASMIN MARTINEZ [facility] Start: 02-23-2020 End: 02-23-2020 Patient encounter procedure YASMIN MCGEEILDEFONSOShan Facility:[facility] Start: 02-20-2020 End: 02-20-2020 Patient encounter procedure YASMIN MCGEEILDEFONSOShan Facility:[facility] Start: 02-16-2020 End: 02-17-2020 Patient encounter procedure YASMIN MARTINEZ Facility:[facility] Encounter for other preprocedural examination YASMIN MARTINEZ [facility] Encounter for preprocedural laboratory examination YASMIN MARTINEZ [facility] Procedures Date Procedure Procedure Detail Performing Clinician Start: 07-20-2023 CT CHEST ABDOMEN PEL VIS W IV CONTRAST OUSMANE LOWE Start: 07-20-2023 Lactate [Moles/volum e] in Serum or Plasma OUSMANE LOWE Start: 07-20-2023 XR CHEST 1 VIEW OUSMANE PENA Start: 07-20-2023 DRUG SCREEN,URINE [facility]MANE [facility] Start: 07-20-2023 EXTRA URINE DORAN TUBE J OSEF LOWE Start: 07-20-2023 URINALYSIS MICROSCOP IC WITH REFLEX [facility]ULT[facility] Start: 07-20-2023 URINALYSIS WITH REFL EX [facility]ULTURE [facility] Start: 07-20-2023 Ct thorax w/contrast material Abiodun Ochoa PA-C Work Phone: Start: 07-20-2023 CBC W Auto Different ial panel - Blood [facility] Start: 07-20-2023 Comprehensive metabo lic 2000 panel - Serum or Plasma [facility] Start: 07-20-2023 HUMAN CHORIONIC GONADOTROPIN, SERUM QUANTITATIVE [facility] Start: 07-20-2023 Lactate [Moles/volum e] in Serum or Plasma [facility] Start: 07-20-2023 Lipase [Enzymatic activity/volume] in Serum or Plasma [facility] Start: 07-20-2023 TROPONIN I, HIGH SENSITIVITY [facility] Start: 07-20-2023 ECG 12-LEAD [facility] Start: 07-20-2023 INSERT PERIPHERAL IV RA BRITTNEY [facility] Start: 07-20-2023 Assay of lactate Abiodun Ochoa PA-C Work Phone: Start: 07-20-2023 Radiologic exam ches t single view Abiodun Ochoa PA-C Work Phone: Start: 07-20-2023 Drug tst prsmv instr mnt chem analyzers pr date Abiodun Ochoa PA-C Work Phone: Start: 07-20-2023 Urinalysis complete W Reflex Culture panel - Urine Abioudn Ochoa PA-C Work Phone: Start: 07-20-2023 Urnls [...] 2) Zoste r Vaccines (1 of 2) [facility] Start: 11-04-2023 Influenza vaccination Influenz a Vaccine (Season Ended) [facility] Start: 07-11-2023 End: 10-10-2023 Corticotropin [Mass/volume] in Plasma ACTH BLD Lab Routine 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HCC) Expected: 07/11/2023, Expires: 10/10/2023 [facility] Comment on above: Expected: 07/11/2023 , Expires: 10/10/2023 Start: 07-11-2023 End: 10-10-2023 Cortisol [Mass/volume] in Serum or Plasma CORTISOL, SERUM Lab Routine 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HCC) Expected: 07/11/2023, Expires: 10/10/2023 [facility] Comment on above: Expected: 07/11/2023 , Expires: 10/10/2023 Start: 07-11-2023 End: 10-10-2023 Estradiol (E2) [Mass/volume] in Serum or Plasma ESTRADIOL-17B BLD Lab Routine 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HCC) Expected: 07/11/2023, Expires: 10/10/2023 [facility] Comment on above: Expected: 07/11/2023 , Expires: 10/10/2023 Start: 07-11-2023 End: 10-10-2023 Follitropin [Units/volume] in Serum or Plasma FOLLICLE STIMULATING HORMONE Lab Routine 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HCC) Expected: 07/11/2023, Expires: 10/10/2023 [facility] Comment on above: Expected: 07/11/2023 , Expires: 10/10/2023 Start: 07-11-2023 End: 10-10-2023 INSULIN LIK GR FAC I INSULIN LIK GR FAC I Lab Routine 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HCC) Expected: 07/11/2023, Expires: 10/10/2023 [facility] Comment on above: Expected: 07/11/2023 , Expires: 10/10/2023 Start: 07-11-2023 End: 10-10-2023 Lutropin [Units/volume] in Serum or Plasma LUTEINIZING HORMONE Lab Routine 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[facility]) Expected: 07/11/2023, Expires: 10/10/2023 [facility] Comment on above: Expected: 07/11/2023 , Expires: 10/10/2023 Start: 07-11-2023 End: 08-09-2024 MR Pituitary and Sella turcica WO and W contrast IV MRI PITUITARY WO/W IVCON Radiology Routine 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[facility]) Expected: 07/11/2023, Expires: 08/09/2024 [facility] Work Phone: Comment on above: Expected: 07/11/2023 , Expires: 08/09/2024 Start: 07-11-2023 End: 10-10-2023 Prolactin [Mass/volume] in Serum or Plasma PROLACTIN Lab Routine 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[facility]) Expected: 07/11/2023, Expires: 10/10/2023 [facility] Comment on above: Expected: 07/11/2023 , Expires: 10/10/2023 Start: 07-11-2023 End: 10-10-2023 Somatostatin [Mass/volume] in Plasma GROWTH HORMONE Lab Routine 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[facility]) Expected: 07/11/2023, Expires: 10/10/2023 [facility] Comment on above: Expected: 07/11/2023 , Expires: 10/10/2023 Start: 07-11-2023 End: 10-10-2023 Thyrotropin [Units/volume] in Serum or Plasma THYROID STIMULATING HORMONE Lab Routine 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[facility]) Expected: 07/11/2023, Expires: 10/10/2023 [facility] Comment on above: Expected: 07/11/2023 , Expires: 10/10/2023 Start: 07-11-2023 End: 10-10-2023 Thyroxine (T4) free [Mass/volume] in Serum or Plasma T4 FREE/FREE THYROXINE Lab Routine 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[facility]) Expected: 07/11/2023, Expires: 10/10/2023 [facility] Comment on above: Expected: 07/11/2023 , Expires: 10/10/2023 Start: 03-05-2023 Behavioral Health Screening Behavioral Health Screening [facility] Start: 11-03-2022 Covid-19 Vaccine ( season) Covid-19 Vaccine ( season) [facility] Start: 05-29-2018 DTaP/Tdap/Td Vaccine s (3 - Td or Tdap) DTaP/Tdap/Td Vaccines (3 - Td or Tdap) [facility] Start: 05-29-2018 Urine microalbumin profile DTaP,Tdap,Td Vaccine (3 - Td or Tdap) [facility] Start: 08-30-2015 Screening for malign ant neoplasm of cervix [facility] Start: 07-13-2014 Hepatitis B Vaccine (3 of 3 - 19+ 3-dose series) Hepatitis B Vaccine (3 of 3 - 19+ 3-dose series) [facility] Start: 07-13-2014 Hepatitis B Vaccines (3 of 3 - 19+ 3-dose series) Hepatitis B Vaccines (3 of 3 - 19+ 3-dose series) [facility] Start: 05-12-2014 Hepatitis A Vaccines (2 of 2 - 2-dose series) Hepatitis A Vaccines (2 of 2 - 2-dose series) [facility] Start: 2012 Hepatitis C screening Hepatitis C Sc reening [facility] Start: 2012 HIV screening HIV Screening [facility] Start: 05-18-2010 Varicella vaccination Varicell a Vaccines (2 of 2 - 13+ 2-dose series) [facility] Start: 2000 Pneumococcal Vaccine : Pediatrics (0 to 5 Years) and At-Risk Patients (6 to 64 Years) (1 of 2 - PCV) Pneumococcal Vaccine: Pediatrics (0 to 5 Years) and At-Risk Patients (6 to 64 Years) (1 of 2 - PCV) [facility] Start: 07-06-1999 IPV Vaccines (2 of 3 - 4-dose series) IPV Vaccines (2 of 3 - 4-dose series) [facility] Start: 1994 HIV screening HIV Screening [facility] Start: 1994 Lipid panel Lipid Panel [facility] Start: 1994 Yearly Adult Physical Yearly Adult P hysical [facility] ECG 12 lead ECG 12 lead ECG STAT 07/20/2023 2:57 PM EDT [facility] Work Phone: End: 07-20-2023 Extra Urine [facility] Work Phone: Comment on above: Once for 1 Occurrenc es starting 07/20/2023 until 07/20/2023 End: 07-20-2023 Urinalysis complete W Reflex Culture panel - Urine [facility] Work Phone: Comment on above: Once (Lab) for 1 Occ urrences starting 07/20/2023 until 07/20/2023 Immunizations Immunization Date Immunization Notes Care Provider Fa rena 12-06-2015 influenza virus vaccine, unspecified formulation Elton Cummings MD Work Phone: [facility] 05-18-2014 hepatitis B vaccine, adult dosage Mohamad Mouchli [facility] 03-30-2014 hepatitis B vaccine, adult dosage Mohamad Mouchli [facility] 11-12-2013 hepatitis A vaccine, unspecified formulation Mohamad Mouchli [facility] 11-12-2013 hepatitis B vaccine, pediatric or pediatric/adolescent dosage Mohamad Mouchli [facility] 11-12-2013 hepatitis A and hepatitis B vaccine Ousmane Danielson MD Work Phone: [facility] Work Phone: 12-31-2012 influenza, whole Mohamad Rosa chli [facility] 04-20-2010 hepatitis A vaccine, unspecified formulation Mohamad Mouchli [facility] 04-20-2010 varicella virus vaccine Jeovanny Danielson MD Work Phone: [facility] 05-29-2008 meningococcal ACWY vaccine, unspecified formulation Mohamad Mouchli [facility] 05-29-2008 tetanus toxoid, redu bridget diphtheria toxoid, and acellular pertussis vaccine, adsorbed Mohamad Mouchli [facility] 12-13-2006 HPV, unspecified formulation Mohamad Mouchli [facility] 08-13-2006 HPV, unspecified formulation Mohamad Mouchli [facility] 06-13-2006 HPV, unspecified formulation Mohamad Mouchli [facility] 06-08-1999 DTaP, unspecified formulation Mohamad Mouchli [facility] 06-08-1999 measles, mumps and rubella virus vaccine Mohamad Mouchli [facility] 06-08-1999 poliovirus vaccine, unspecified formulation Ousmane Danielson MD Work Phone: [facility] Payers Date Payer Category Payer Unknown [id number] 2019 Unknown [id number] 1994 Unknown [id number] 2.16.84 [id number] 1994 Unknown [id number] 2.16.84 0.1.772275.3.579.2.593 1994 Unknown [id number] 2.16.84 0.1.537676.3.579.2.593 1994 Unknown [id number] 2.16.84 0.1.020012.3.579.2.593 1994 Unknown [id number] 2.16.84 0.1.796619.3.579.2.1259 1994 Unknown [id number] 2.16.84 0.1.869889.3.579.2.9 1994 Unknown [id number] 2.16.84 0.1.613704.3.579.2.9 1994 Unknown [id number] 2.16.84 0.1.858219.3.579.2.9 1994 Unknown [id number] 2.16.840 .1.314514.3.579.2.1259 1994 Unknown [id number] 2.16.8 40.1.689223.3.579.2.727 1994 Unknown [id number] 2.16.8 40.1.758924.3.579.2.727 1994 Unknown [id number] 2.16.8 40.1.679490.3.579.2.1243 1959 Unknown [id number] 1959 Unknown [id number] 1959 Unknown [id number] Social History Date Type Detail Facility Tobacco smoking stat [facility] Tobacco smoking consumption unknown [facility] Start: 06-13-2023 History of Social function [facility] Start: 06-13-2023 Area Deprivation Index [facility] National Score (1-10 0), lower number is lower risk 85 [facility] Start: 1995 Sex Assigned At Not on file C [facility] Start: 07-10-2023 End: 07-20-2023 Exposure to SARS-CoV-2 (event) Not sure [facility] Work Phone: Start: 09-13-2023 Tobacco smoking status Never s moked tobacco (finding) [facility] Functional Status Date Assessment Result Facility 09-13-2023 Functional Status N/A [facility] Clinical Notes 01-20-2021 to 08-14-2023 Telephone Encounter - Santiago Salcedo MA - 08/14/2023 11:08 AM EDTTelephone Encounter - Santiago Salcedo MA - 08/14/2023 11:08 AM EDTConsultation (Routine) - Authorized Note Date & Type Note Facility 08-14-2023 Telephone encounter Note Form atting of this note might be different from the original. Received MRI results completed 08/02/2023, scanned to chart Santiago Salcedo Biomechanical Engineer II Endocrinology & Metabolism [facility] F20 & X20 [facility] 08-14-2023 Miscellaneous Notes Formattin g of this note might be different from the original. Received MRI results completed 08/02/2023, scanned to chart Santiago Salcedo Biomechanical Engineer II [facility] F20 & X20 documented in this encounter [facility] 07-20-2023 Reason for referr al (narrative) Specialty Diagnoses / Procedures Referred By Niki villeda Referred To Contact Gastroenterology Abiodun Ochoa PA-C [address] [facility] [address] [place] [address] Do [id number] Gastro1 [address] [facility] [address] [place] [address] Referral ID Status Reason Start Date Expiration Date Visits Requested Visits Authorized [id number] Authorized Specialty Services Required 07/20/2023 07/19/2024 1 1 [facility] Work Phone: [phone] 559-155904-10-2024 NoteHNO ID: [id number] Author: ELTON CUMMINGS MD Service: ? Author [...] June 13, 2023 TIME of SERVICE: 10:12 [facility]04-10-2024 History of Present illness Narrative* Elton Cummings MD - 06/13/2023 10:12 AM EDT Endocrinology/Initial Pituitary Assessment Note: History of Present [...] of SERVICE: 10:12 AM [facility]11-18-2021 NoteHNO ID: [id number] Author: Renetta Beltran MD Service: Reproductive Endocrinology [...] Dr. Renetta Beltran M.D. Reproductive Endocrinology and InfertilityLifepoint [id number] NoteHNO ID: [id number] Author: RT Juan(R) Service: Radiology Author Type: [...] Samina Davison, RT(R) January 20, 2021 12:29 [facility] HospitalEvaluation + Plan note Future Appointments Appointment Date:10/01/2023 09:00:00 AM Scheduled Provider: Location:[facility] Surgical Services Appointment Type:Surgery FT [facility] Evaluation note* Diagnosis Prolactinoma (HCC)- Primary Benign neoplasm of pituitary gland and craniopharyngeal duct (pouch) 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HCC) Unspecified disorder of the pituitary gland and its hypothalamic control Elevated prolactin level Unspecified endocrine disorder [facility]* Diagnosis Nausea and vomiting, unspecified vomiting type- Primary Gastritis, presence of bleeding unspecified, unspecified chronicity, unspecified gastritis type documented in this encounter [facility] Work Phone: Hospital course Narrative No data available for this section [facility] Hospital Discharge instructions* Attachments The following attachments cannot be sent through Care Everywhere. * Gastritis ED (Belarusian) * Nausea and Vomiting, Adult ED ([place]ian) * Cannabis hyperemesis syndrome ([place]) [facility] Work Phone: Hospital Discharge instructions No data available for this section [facility] Progress note No data available for this section [facility] Summary Purpose Family History No Family History Records FoundNo Family History Records FoundNo Family History Records FoundNo Family History Records FoundNo Family History Records FoundNo Family History Records FoundNo Family History Records Found No data available for this section No Family History Records Found Advance Directives No Advanced Directives Records FoundNo Advanced Directives Records FoundNo Advanced Directives Records FoundNo Advanced Directives Records FoundNo Advanced Directives Records FoundNo Advanced Directives Records FoundNo Advanced Directives Records FoundNo Advanced Directives Records Found Reason for Referral Specialty Diagnoses / Procedures Referred By Contotto t Referred To Contact MR IMAGING Diagnoses 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HCC) Procedures MRI PITUITARY WO/W IVCON MRI BRAIN BRAIN STEM W/O W/CONTRAST MATERIAL Elton Cummings MD [address] [place] [address] Mr Imaging [facility]95 Referral ID Status Reason Start Date Expiration Date Visits Requested Visits Authorized [id number] Pending Review Auto-Generat ed Referral 07/11/2023 08/09/2024 1 1 Additional Source Comments INFORMATION SOURCE (unrecogn ized section and content) DATE CREATED AUTHOR 04/15/2020 [facility] DATE CREATED AUTHOR AUTHOR'S ORGANIZ ATION 01/22/2021 [facility] DATE CREATED AUTHOR AUTHOR'S ORGANIZ ATION 01/22/2021 [facility] DATE CREATED AUTHOR AUTHOR'S ORGANIZ ATION 07/30/2023 [facility] DATE CREATED AUTHOR AUTHOR'S ORGANIZ ATION 08/24/2023 [facility] DATE CREATED AUTHOR AUTHOR'S ORGANIZ ATION 08/25/2023 [facility] DATE CREATED AUTHOR AUTHOR'S ORGANIZ ATION 09/18/2023 [facility] DATE CREATED AUTHOR AUTHOR'S ORGANIZ ATION 09/19/2023 [facility] Source Comments (unrecognize d section and content) In the event this informatio n is protected by the Federal Confidentiality of Alcohol and Drug Abuse Patient Records regulations: The Federal rules restrict any use of the information to criminally investigate or prosecute any alcohol or drug abuse patient.[facility]healthIn the event this information is protected by the Federal Confidentiality of Alcohol and Drug Abuse Patient Records regulations: The Federal rules restrict any use of the information to criminally investigate or prosecute any alcohol or drug abuse patient.[facility] Reason for Visit (unrecogniz ed section and content) Reason Comments Pituitary Problem Reason Comments n/v. 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 [employer] provides no warranty or guarantee of the accuracy or completeness of information in this document.
[2023-10-12 04:08] LABS: Progesterone 5.8 ng/mL (.)
== END 2023-10-10 16:34 | disposition home or self-care (01) ==
PROVIDERS: PCP Family Medicine; Visit Provider Obstetrics & Gynecology
DX: N97.0 Female infertility associated with anovulation (principal); N92.1 Excessive and frequent menstruation with irregular cycle; N83.9 Noninflammatory disorder of ovary, fallopian tube and broad ligament, unspecified
CPT/HCPCS: 36415; 84144

== ENCOUNTER 2023-11-08 15:56 | Outpatient (OUT) | payer BC, SELFPAY ==
--- OUTSIDE RECORDS SUMMARY | 2023-11-08 16:04 | XMS_ITS | CCD ---
Author Organization [facility] Care Team Providers Care Log Manager Name Role Phone YASMIN MARTINEZ Consulting Unavailable CAROLYNE EDMONDS Primary Care Unavailable YASMIN MARTINEZ Admitting Unavailable RONALDKYASMIN Attending Unavailable GIGI COBB Consulting Unavailable KARASIK, YASMIN Admitting Unavailable KARASIK, YASMIN Attending Unavailable YASMIN MARTINEZ Consulting Unavailable YASMIN MARTINEZ Consulting Unavailable YASMIN MARTINEZ Admitting Unavailable RONALDKYASMIN Attending Unavailable YASMIN MARTINEZ Primary Care Unavailable KARILDEFONSOK, YASMIN Admitting Unavailable RONALDKYASMIN Attending Unavailable Uriel Meade DO Unavailable Unavailable Primary Care Provider UnavailKARINA Tilley Attending Unavailable URIEL MEADE Attending Unavailable CAROLYNE EDMONDS Attending Unavailable CAROLYNE EDMONDS Attending Unavailable CAROLYNE EDMONDS Attending Unavailable CAROLYNE EDMONDS Attending Unavailable Carolyne Edmonds Primary Care Physician [phone] GWEN DANIELSON Attending Unavailable Mohelena Mohamakobi ATyrone Referring Unavailable Mouchli, Mohamad A. Admitting Unavailable Zenia Mohamad A. Attending Unavailable Alex Knutson Attending Unavailable Carolyne Edmonds Referring Unavailable Mouchli, Mohamad A. Referring Unavailable Mouchli, Mohamad A. Attending Unavailable Mohelena, Mohamad A. Admitting Unavailable Allergies Allergy Classification Reported Allergen(s) Allergy Type Date of Onset Reaction(s) Facility (1 source) No Known Medication Allergies; Translations: [No Known Medication Allergies] Propensity to adverse reactions (disorder) [facility] Repository Medications Current Medications Medication Drug Class(es) Dates Sig (Normalized) Sig (Original) Advair HFA 115 mcg-21 mcg/inh inhalation aerosol with adapter (2 sources) Start: 09-13-2023 take 2 puff(s) by inhalation twice daily Advair HFA 115 mcg-21 mcg/inh inhalation aerosol with adapter 2 puff(s), Inhalation, BID Shortness of breath or wheezing, Refill(s) 6 Start Date: 09/13/23 Status: Ordered Start: 09-13-2023 take 2 puff(s) by in halation twice daily Advair HFA 115 mcg-21 mcg/inh inhalation aerosol with adapter 2 puff(s), Inhalation, BID, Refill(s) 6 Start Date: 09/13/23 Status: Ordered ALPRAZolam 0.5 mg oral tablet (2 sources) Benzodiazepine Start: 09-13-2023 take 1 tablet by mouth three times daily as needed for anxiety Xanax 0.5 mg Tab 0.5 mg = 1 tab(s), Oral, TID, PRN for anxiety, Refills(s) 0 Start Date: 09/13/23 Status: Ordered cyclophosphamide 50 mg oral capsule (2 sources) Alkylating Drug Start: 09-13-2023 cyclophosphamide 50 mg oral capsule Refills(s) 0, Other (see comment) Start Date: 09/13/23 Status: Ordered estradiol 2 [...] pantoprazole 40 mg delayed release oral tablet (5 sources) Proton Pump Inhibitor Start: 09-13-2023 take 1 tablet by mouth once daily Pantoprazole [address] Tab 40 mg = 1 tab(s), Oral, Daily, # 30 tab(s), Refills(s) 4, Pharmacy: [facility][id number], 167, cm, 09/13/23 14:57:00 EDT, Height/Length Dosing, [...] tablet 07/20/2023 08/09/2023 Active polyethylene glycol 3350 41917 mg powder for oral solution (2 sources) Osmotic Laxative Start: 09-13-2023 take 17 g by mouth once daily Miralax 3350 17 gram packet 17 gm, Oral, Daily, # 527 gm, Refills(s) 5, Pharmacy: [facility] #[id number], 167, cm, 09/13/23 14:57:00 EDT, Height/Length Dosing, [...] 1 dose lamoTRIgine 25 mg oral tablet (2 sources) Mood Stabilizer, Anti-epileptic Agent Start: 09-13-2023 take 1 tablet by mouth twice daily lamotrigine 25 mg Tab 42 EA, 0 Refill(s), TAKE 1 TABLET BY MOUTH DAILY FOR 14 DAYS THEN TAKE 1 TABLET BY MOUTH TWICE DAILY, Refills(s) 0 Start Date: 09/13/23 Status: Ordered methylphenidate hydrochloride 20 mg oral tablet (2 sources) Central Nervous System Stimulant Start: 09-13-2023 take [...] Date Documented Da te Episodic/Chronic Abdominal pain (4 sources) Pain in pelvis; Translations: [Visceral abdominal pain] Onset: 09-25-2022 09-13-2023 Episodic Abdominal pain (1 source) Pelvic and perineal pain; Translations: [PELVIC AND PERINEAL PAIN] Onset: 03-24-2020 Anxiety disorders (3 sources) Anxiety disorder, unspecified; Translations: [Anxiety] Onset: 03-24-2020 09-13-2023 Chronic Asthma (3 sources) Unspecified asthma, uncomplicated; Translations: [Asthma] Onset: 03-24-2020 09-13-2023 Chronic Attention-deficit, conduct, and disruptive behavior disorders (2 sources) Attention deficit hyperactivity disorder 09-13-2023 Chronic Cancer of cervix (2 sources) Malignant tumor of cervix 09-13-2023 Chronic Deficiency and other anemia (2 sources) Anemia 09-13-2023 Episodic Endometriosis (3 sources) Endometriosis of pelvic peritoneum; Translations: [Endometriosis (clinical)] Onset: 03-24-2020 09-13-2023 Chronic Esophageal disorders (3 sources) Esophagitis; Translations: [Esophagitis, unspecified without bleeding] Onset: 09-13-2023 Episodic Gastritis and duodenitis (5 sources) Gastritis; Translations: [Gastritis, unspecified, without bleeding] Onset: 07-20-2023 07-20-2023 Episodic Inflammatory diseases of female pelvic organs (1 source) Chronic salpingitis; Translations: [CHRONIC SALPINGITIS] Onset: 03-24-2020 Chronic Malaise and fatigue (2 sources) Fatigue 09-13-2023 Episodic Menstrual disorders (6 sources) Excessive and frequent menstruation with regular cycle; Translations: [Amenorrhea] Onset: 03-22-2020 09-13-2023 Chronic Miscellaneous mental health disorders (3 sources) Psychosomatic factor in physical condition; Translations: [Psychological and behavioral factors associated with disorders or diseases classified elsewhere] Onset: 09-13-2023 Chronic Mood disorders (6 sources) Bipolar disorder, unspecified; Translations: [Bipolar disorder] Onset: 03-24-2020 Chronic Nausea and vomiting (6 sources) Nausea and vomiting; Translations: [Nausea with vomiting, unspecified] Onset: 07-20-2023 07-20-2023 Episodic Other aftercare (1 source) Other termination clerk (current) drug therapy; Translations: [[facility] CURRENT DRUG THERAPY] Onset: 03-24-2020 Episodic Other and unspecified benign neoplasm (3 sources) Prolactinoma; Translations: [Benign neoplasm of pituitary gland] 07-11-2023 Episodic Other and unspecified benign neoplasm (1 source) Benign neoplasm of pituitary gland; 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)] Onset: 06-13-2023 Episodic Other endocrine disorders (3 sources) Disorder of pituitary gland; Translations: [Disorder of pituitary gland, unspecified] 07-11-2023 Chronic Other endocrine disorders (1 source) Disorder of pituitary gland, unspecified; Translations: [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HCC)] Onset: 06-13-2023 Chronic Other female genital disorders (2 sources) Abnormal uterine bleeding 09-13-2023 Chronic Other gastrointestinal disorders (3 sources) Heartburn; Translations: [Heartburn] Onset: 09-13-2023 Episodic [...] Onset: 03-24-2020 Chronic Other non-traumatic joint disorders (2 sources) Bilateral arthritis of sacroiliac joint 09-13-2023 Chronic Other nutritional; endocrine; and metabolic disorders (1 source) Abnormal weight loss; Translations: [Abnormal weight loss] Onset: 09-13-2023 Episodic Other nutritional; endocrine; and metabolic disorders (2 sources) Weight loss 09-13-2023 Episodic Other screening for suspected conditions (not mental disorders or infectious disease) (7 sources) Increased prolactin level; Translations: [Other specified abnormal findings of blood chemistry] Onset: 05-28-2023 07-11-2023 Episodic Other upper respiratory disease (2 sources) Chronic rhinitis 09-13-2023 Chronic Other upper respiratory disease (2 sources) Seasonal allergic rhinitis 09-13-2023 Chronic Residual codes; unclassified (4 sources) Procedure and treatment not carried out, unspecified reason; Translations: [PROC AND TX NOT CARRIED OUT UNS REASON] Onset: 02-23-2020 Episodic Residual codes; unclassified (2 sources) History of laparoscopy 09-13-2023 Episodic Spondylosis; intervertebral disc disorders; other back problems (2 sources) Sciatica 09-13-2023 Episodic Spontaneous (2 sources) Miscarriage 09-13-2023 Episodic Unclassified (1 source) COVID-19; Translations: [COVID-19] Onset: 03-03-2020 Past or Other Problems Problem Classification Problem Date Documented Da te Episodic/Chronic Inflammatory diseases of female pelvic organs (3 sources) Female pelvic peritoneal adhesions (postinfective); Translations: [Chronic vaginitis] Onset: 03-24-2020 09-13-2023 Episodic Other and unspecified benign neoplasm (2 sources) Benign neoplasm of pituitary gland Onset: 06-13-2023 09-13-2023 Episodic Results Test Name Value Interpretation Reference Range Facility Surgical Pathology Reporton 10-17-2023 Surgical Pathology Report [address] [id number]- Surgical Pathology Report Collected Date/Time: 10/15/2023 09:32 EDT Pathologist: Joel Smith MD Received Date/Time: 10/15/2023 10:23 EDT Zenia ELLISON, Alex Knutson MD, Alex Walsh Surgical Pathology Report - 10/17/2023 11:14 EDT - Auth (Verified) Final Diagnosis A: STOMACH, BIOPSY: - Antral and oxyntic-type gastric mucosa with mild chronic inactive gastritis and a lymphoid aggregate. - No Helicobacter pylori microorganisms identified with immunohistochemical stain. B: ESOPHAGUS, BIOPSY: - Esophageal squamous epithelium with reactive changes. - No glandular mucosa present. C: SMALL BOWEL, DUODENUM, BIOPSY: - Small bowel mucosa with no significant histopathology. - No evidence of celiac disease identified. (Electronic Signature) Yan. Sarah MD 10/17/2023 11:14 Clinical Information Pre-Op Diagnosis: Weight loss, nausea, vomiting, heartburn Procedure: EGD Post-Op Diagnosis: Mild gastropathy Specimen(s) Received A: Gastric biopsy B: Esophageal biopsy C: Duodenal biopsy Gross Description A: Received in formalin labeled with patient name, number, and gastric biopsy are four fragments of benites/pink tissue ranging from 0.2 cm up to 0.3 cm in greatest dimension. Specimen is entirely submitted in one cassette. B: Received in formalin labeled with patient name, number, and esophageal biopsy are three fragments of benites/pink tissue ranging from 0.3 cm up to 0.7 cm in greatest dimension. Specimen is entirely submitted in one cassette. C: Received in formalin labeled with patient name, number, and duodenal biopsy are three fragments of benites/pink tissue ranging from 0.1 cm up to 0.2 cm in greatest dimension. The specimen is entirely submitted in one cassette. (DC) DC:[facility] Microscopic Description A-C: Microscopic examination performed unless gross only specified. The use of one or more reagents in the above tests is regulated as an analyte specific reagent (ASR). The test or tests are ordered following initial H&E microscopic examination. The performance characteristics were determined by the [facility] of [facility]. They have not been cleared or approved by the US Food and Drug Administration. The FDA has determined that such clearance or approval is not necessary. These tests are used for clinical purposes. They should not be regarded as investigational or for research. Appropriate positive and negative controls are performed and are acceptable. Normal [facility] Comment on above: Performed By: #### [id number] #### [facility] [address] [place] [address] Main OR Intraoperative Recor don 10-16-2023 Main OR Intraoperative Record Main OR Intraoperative Record IntraOp Document Type FT Summary Primary Physician: Alex Knutson MD Finalized Date/Time: 10/16/23 12:11:53 Pt. Name: INDU ST /Sex: 1995 Female Med Rec #: [id number] Physician: Alex Knutson MD Financial #: [id number] Pt. Type: O Room/Bed: / Admit/Disch: 10/15/23 06:46:50 - 10/15/23 23:59:59 Institution: Case Times FT Entry 1 Patient Times In Room 10/15/23 09:16:00 Out Room 10/15/23 09:40:00 Procedure Times Start 10/15/23 09:21:00 Stop 10/15/23 09:38:00 Anesthesia Times Start 10/15/23 09:16:00 Stop 10/15/23 09:40:00 Time at [place] 10/15/23 09:29:00 Last Modified By: Kristen Amin RN 10/15/23 09:40:16 General Comments: 925-EGD completed/AW RN 927-Colonoscopy started/AW RN 10/16/23 Chart opened to review and send charges LRoth CSFA Case Attendance FT Entry 1 Entry 2 Entry 3 Case Attendee Lenny Moreno DO, RN, Promise Willis Role Performed Anesthesiologist of Long Lines Operator - Primary Scrub - Primary Record Time In 10/15/23 09:16:00 10/15/23 09:16:00 10/15/23 09:16:00 Time Out 10/15/23 09:40:00 10/15/23 09:40:00 10/15/23 09:40:00 Procedure EGD AND COLONOSCOPY(.) EGD AND COLONOSCOPY(.) EGD AND COLONOSCOPY(.) Comments Last Modified By: Brennan WHITE, Kristen Amin RN, Kristen Larsen RN 10/15/23 09:40:17 10/15/23 09:40:17 10/15/23 09:40:17 Entry 4 Case Attendee Alex Knutson MD Role Performed Surgeon - Primary Time In 10/15/23 09:16:00 Time Out 10/15/23 09:40:00 Procedure EGD AND COLONOSCOPY(.) Comments Last Modified By: Kristen Amin RN 10/15/23 09:40:17 Perioperative Protocols FT Pre-Care Text: Implements protective measures prior to operative or invasive procedure, confirms identity before the operative or invasive procedure, verifies operative procedure, surgical site, and laterality Entry 1 Procedure(s) EGD AND COLONOSCOPY(.) Patient Identity Birthday, ID Band Verified (select at Check, Patient least 2): Participation Consents / H and P Anesthesia Consent, Operative Site N/A Verified H&P, Surgery/Procedure Marking Verified Consent Surgical Site No Laterality Verified n/a Verified Procedure Verified Yes Correct Patient Yes Position Verified Availability Equipment, Medication Prep Dry n/a Verified (If Applicable) PreOp Antibiotic No Time Out Lenny Moreno DO, Kristen Amin RN, Miles, Kirstyn K, Mouchli MD, Mohamad A. Time Out Complete 10/15/23 09:19:00 Outcomes Met? Yes Last Modified By: Kristen Amin RN 10/15/23 09:19:51 Post-Care Text: The patient is free from signs and symptoms of injury caused by extraneous objects Allergy Information FT Pre-Care Text: Verifies allergies Entry 1 Allergies Reviewed? Yes Allergies Reviewed Self/Patient With Outcomes Met? Yes Last Modified By: Kristen Amin RN 10/15/23 09:19:57 Post-Care Text: The patient received appropriate medication(s) safely administered during the perioperative period Surgical Procedures FT Entry 1 Procedure Description Procedure EGD AND COLONOSCOPY Modifiers . Surgeon Description EGD with duodenal, gastric and esophageal biopsies. COLONOSCOPY Primary Procedure Yes Primary Surgeon Alex Kntuson MD Start 10/15/23 09:21:00 Stop 10/15/23 09:38:00 Anesthesia Type General Surgical Service Gastroenterology Wound Class 2 - Clean-Contaminated Last Modified By: Kristen Amin RN 10/15/23 09:39:26 General Case Data FT Pre-Care Text: Classifies surgical wound, implements aseptic technique, initiates traffic control Entry 1 Case Information OR ENDO 1 FT Case Level Level 2 Wound Class 2 - Clean-Contaminated Specialty Gastroenterology ASA Class 2 Preop Diagnosis WEIGHT LOSS, NAUSEA AND Postop Same As Preop No VOMITING, HEARTBURN, BI POLAR DISORDER Postop Diagnosis EGD-mild gastropathy. Outcomes Met? Yes Colonoscopy - internal hemorrhoids Last Modified By: Kristen Amin RN 10/15/23 09:40:01 Post-Care Text: The patient is free from signs and symptoms of infection General Comments: 925-EGD completed/AW RN 927-Colonoscopy started/AW RN Skin Assessment (Pre Procedure) FT Pre-Care Text: Implements protective measures to prevent skin/ tissue injury due to thermal or mechanical sources Evaluates for signs and symptoms of physical injury to skin and tissue Entry 1 Skin Integrity Intact, [place], Warm, & Skin Abnormality No Dry Outcomes Met? Yes Last Modified By: Kristen Amin RN 10/15/23 09:30:43 Post-Care Text: The patient is free from signs and symptoms of injury caused by extraneous objects Patient Positioning FT Pre-Care Text: Identifies physical alterations that require additional precautions for procedure-specific positioning, verifies presence of prosthetics or corrective devices, positions the patient, evaluates the patient for signs and symptom (more content not included)... Normal [facility] B hCG [place] 10-15-2023 Beta HCG ( test) Ql Negative Normal [facility] Comment on above: Performed By: #### [id number] #### [facility] [address] [place] [address] Discharge Instructionson Discharge Instructions Discharge Instruc tions INDU ST :1995 Visit Date:10/15/2023 Inpatient Discharge Instructions Your Care Team Admitting Physician - Alex Knutson MD. Referring Physician - Alex Knutson MD. Reason for Your Visit WEIGHT LOSS, NAUSEA AND VOMITING, HEARTBURN, BI POLAR DISORDER Tests Performed Pathology Tissue Exam -- Results Pending -- Please visit your patient portal for your results or contact your primary care physician. This Is Your Medications List alprazolam (Xanax 0.5 mg Tab) cyclophosphamide (cyclophosphamide 50 mg oral capsule) fluticasone-salmeterol (Advair HFA 115 mcg-21 mcg/inh inhalation aerosol with adapter) lamotrigine (lamotrigine 25 mg Tab) methylphenidate (Ritalin 20 mg oral tablet) pantoprazole (Pantoprazole [address] Tab) pantoprazole (Pantoprazole [address] Tab) polyethylene glycol 3350 (Miralax 3350 17 gram packet) Discharge Vitals Temperature (Temporal Artery) 36.7 ?C Heart Rate (Monitored) 59 Respiratory Rate 20 Blood Pressure 112/74 Height 167 cm Weight 48.9 kg BMI 17.53 What to do next Instructions From Your Doctor No qualifying data available. New Follow Up Appointments after Discharge Follow Up with Alex Knutson When: Within 1 to 2 weeks Comments: Call for any problems. Where: [address] [place] [address], [address] [place] [address]- [phone] [facility] (1) Medications What How Much When Why Instructions Next Dose Unchanged alprazolam (Xanax 0.5 mg Tab) 1 Tablets By Mouth 3 times a day as needed for for anxiety Unchanged cyclophosphamide (cyclophosphamide 50 mg oral capsule) Unchanged fluticasone-salmeterol (Advair HFA 115 mcg-21 mcg/ inh inhalation aerosol with adapter) 2 Puffs Inhalation 2 times a day as needed for Shortness of breath or wheezing Unchanged lamotrigine (lamotrigine 25 mg Tab) 42 EA, 0 Refill(s), TAKE 1 TABLET BY MOUTH DAILY FOR 14 DAYS THEN TAKE 1 TABLET BY MOUTH TWICE DAILY Unchanged methylphenidate (Ritalin 20 mg oral tablet) 40 EA, 0 Refill(s), TAKE 1 TABLET BY MOUTH EVERY MORNING AND 1 TABLET EVERY NIGHT AT BEDTIME Unchanged pantoprazole (Pantoprazole [address] Tab) 1 Tablets By Mouth Every day Weight loss Nausea and vomiting Heartburn Bipolar disorder Stress-related physiological response affecting medical condition Visceral hypersensitivity syndrome Unchanged pantoprazole (Pantoprazole [address] Tab) 30 EA, 0 Refill(s) Unchanged polyethylene glycol 3350 (Miralax 3350 17 gram packet) 17 Gram By Mouth Every day Weight loss Nausea and vomiting Heartburn Bipolar disorder Stress-related physiological response 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 Allergies No Known Medication Allergies Problems Ongoing [...] medical condition Visceral hypersensitivity syndrome Weight loss Education Materials Colonoscopy Care After Surgery Please read the instructions outlined below and refer to this sheet in the next few weeks. These discharge instructions provide you with general information on caring for yourself after you leave the hospital. Your doctor may also give you specific instructions. While your treatment has been planned according to the most current medical practices available, unavoidable complications occasionally occur. If you have any problems or questions after discharge, please call your doctor. ACTIVITY You may resume your regular activity, but move at a slower pace for the next 24 hours. Take frequent rest periods for the next 24 hours. Walking will help get rid of the air and reduce the bloated feeling in your abdomen (belly). No driving for 24 hours (because of the anesthesia (medicine) used during the test). You may shower. Do not sign any important legal documents or operate any machinery for 24 hours (because of the anesthesia used during the test). NUTRITION Drink plenty of fluids. You may resume your normal diet as instructed by your doctor. Begin with a light meal and progress to your normal diet. Heavy or fried foods are harder to digest and may make you feel nauseated (sick to your stomach). Avoid alcoholic beverages for 24 hours or as instructed. MEDICATIONS Yo (more content not included)... Normal [facility] Comment on above: Result Comment: Elec tronically Signed By: Obi WHITE, Mery\.seble\Date and Time Signed: 10/15/23 09:50 EDT DASIADon 10-15-2023 Esophagogastroduodenosc opy EGD Patient: INDU ST Age: 28 years Sex: Female : 1995 Associated Diagnoses: None Author: Alex Knutson MD Pre-Procedure Procedure Date 10/15/2023 09:52:00 . Procedure Type: Esophagogastroduodenosco py with biopsy. Procedure provider Performed by Alex Knutson MD. Current history and physical Documented on chart. Informed Consent After discussing the rationale, risks and benefits, and alternatives to this procedure, the patient provided signed consent for the procedure. Pre-procedure diagnosis: Weight loss. Medications (Selected) Inpatient Medications Ordered Lactated Ringers IV Susie 1000 mL 1,000 mL: 1,000 mL, IV, 100 mL/hr, Routine, Start date 10/15/23 7:22:00 EDT, 10 hour(s), Total volume (mL): 1,000, 48.9 kg, 1.51, m2 Sodium Chloride 0.9% IV Susie 1000 mL 1,000 mL: 1,000 mL, IV, 20 mL/hr, Routine, Start date 10/15/23 6:38:00 EDT, 50 hour(s), Total volume (mL): 1,000 Prescriptions Prescribed Miralax 3350 17 gram packet: 17 gm, Oral, Daily, # 527 gm, Refills(s) 5, Pharmacy: [facility] #[id number], 167, cm, 09/13/23 14:57:00 EDT, Height/Length Dosing, 48.9, kg, 09/13/23 14:57:00 EDT, Weight Dosing Pantoprazole [address] Tab: 40 mg = 1 tab(s), Oral, Daily, # 30 tab(s), Refills(s) 4, Pharmacy: [facility] #[id number], 167, cm, 09/13/23 14:57:00 EDT, Height/Length Dosing, 48.9, kg, 09/13/23 14:57:00 EDT, Weight Dosing Documented Medications Documented Advair HFA 115 mcg-21 mcg/inh inhalation aerosol with adapter: 2 puff(s), Inhalation, BID Shortness of breath or wheezing, Refill(s) [address] Tab: 30 EA, 0 Refill(s), Refills(s) 0 Ritalin 20 mg oral tablet: 40 EA, 0 Refill(s), TAKE 1 TABLET BY MOUTH EVERY MORNING AND 1 TABLET EVERY NIGHT AT BEDTIME, Refills(s) 0 Xanax 0.5 mg Tab: 0.5 mg = 1 tab(s), Oral, TID, PRN for anxiety, Refills(s) 0 cyclophosphamide 50 mg oral capsule: Refills(s) 0, Other (see comment) lamotrigine 25 mg Tab: 42 EA, 0 Refill(s), TAKE 1 TABLET BY MOUTH DAILY FOR 14 DAYS THEN TAKE 1 TABLET BY MOUTH TWICE DAILY, Refills(s) 0 Anticoagulant/antiplatel et None. ASA Classification: Class II. . Monitoring: See anesthesia record. . Procedure The procedure was performed in the hospital. See anesthesia record for sedation given during procedure. The patient was positioned starting in the left lateral decubitus position and with safety measures. Endoscope type used was an adult-size, introduced orally, advanced to the 3rd portion of the duodenum. No difficulty was encountered during the procedure. Views were excellent. The patient tolerated the procedure well. Findings 1. Normal esophagus. Z-line at 42 cm. Biopsies obtained 2. Erythema in the antrum, mild patchy. Otherwise normal stomach. Biopsies of the stomach were taken to rule out H. pylori. 3. Normal duodenum. Biopsies obtained Images Procedure images: [id number]_hd_video_ [id number] Rec1_hd_video_ [id number] Rec1_hd_video_ [id number] Rec1_hd_video_ [id number] Rec1_hd_video_ [id number] Rec1_hd_video_ [id number].jpg . Post-Procedure Complications: none. Estimated blood loss: minimal. Specimens: sent to pathology. Devices/ implants: none left in place. Impression and Plan mild gastropathy Recommendations: -Resume previous diet -Resume home medications -Await pathology results, follow in GI clinic in 1-2 after discharge [facility] Comment on above: Other Comment: Griselda blanco Attachment - attachment storage system not supported [id number] Can be viewed in source system Missing Attachment - attachment storage system not supported [id number] Can be viewed in source system Missing Attachment - attachment storage system not supported [id number] Can be viewed in source system Missing Attachment - attachment storage system not supported [id number] Can be viewed in source system Missing Attachment - attachment storage system not supported [id number] Can be viewed in source system Missing Attachment - attachment storage system not supported [id number] Can be viewed in source system Main OR PACU I Recordon 10-03 Main OR PACU I Record Main OR PACU I Rec ord PACU Phase I Document Type FT Summary Primary Physician: Alex Knutson MD Finalized Date/Time: 10/15/23 10:19:29 Pt. Name: ALMA ROSAINDU/Sex: 1995 Female Med Rec #: [id number] Physician: Alex Knutson MD Financial #: [id number] Pt. Type: O Room/Bed: / Admit/Disch: 10/15/23 06:46:50 - Institution: Case Times PACU I FT Pre-Care Text: Identifies barriers to communication and implements measures to provide psychological support Develops individualized plan of care, and ensures continuity of care Maintains patient's dignity and privacy, and maintains patient confidentiality Identifies and reports philosophical, cultural, and spiritual beliefs and values Identifies individual values and wishes concerning care Implements aseptic technique, and administers prescribed antibiotic therapy and immunizing agents as ordered Evaluates postoperative tissue perfusion Implements thermoregulation measures, and monitors body temperature Evaluates postoperative respiratory status Evaluates postoperative cardiac status Evaluates postoperative neurological status Assesses pain control, collaborated in initiating patient-controlled analgesia and implements alternative methods of pain control Verifies allergies, administers prescribed medications and solutions, evaluates response to medications Entry 1 In PACU I 10/15/23 09:41:00 Discharge from PACU 10/15/23 10:11:00 I Outcomes Met? Yes Last Modified By: Mery Crocker RN 10/15/23 10:19:13 Post-Care Text: The patient demonstrates knowledge of the expected response to the operative or invasive procedure The patient's care is consistent with the individualized perioperative plan of care The patient's right to privacy is maintained The patient's value system, lifestyle, ethnicity, and culture are considered, respected, and incorporated into the perioperative plan of care The patient participates in decisions affecting his or her perioperative plan of care The patient is free from signs and symptoms of infection The patient has wound/tissue perfusion consistent with or improved from baseline levels established preoperatively The patient is at or returning to normothermia at the conclusion of the immediate postoperative period The patient's respiratory function is consistent with or improved from baseline levels established preoperatively The patient's cardiovascular status is consistent with or improved from baseline levels established preoperatively The patient's cardiovascular status is consistent with or improved from baseline levels established preoperatively The patient demonstrates and/or reports adequate pain control throughout the perioperative period The patient received appropriate medication(s), safely administered during the perioperative period Acuity Level PACU I FT Entry 1 Start Time 10/15/23 09:41:00 Stop Time 10/15/23 10:11:00 Acuity Level Acuity Level I Last Modified By: Mery Crocker RN 10/15/23 10:19:25 Finalized By: Mery Crocker RN Document Signatures Signed By: Mery Crocker RN 10/15/23 10:19 Normal [facility] Main OR Preoperative Recordo n 10-15-2023 Main OR Preoperative Record Main OR Preoperative Record Holding Area Document Type FT Summary Primary Physician: Alex Knutson MD Finalized Date/Time: 10/15/23 07:13:13 Pt. Name: ALMA ROSA INDU Raudel/Sex: 1995 Female Med Rec #: [id number] Physician: Alex Knutson MD Financial #: [id number] Pt. Type: O Room/Bed: / Admit/Disch: 10/15/23 06:46:50 - Institution: Case Times Holding FT Pre-Care Text: Verifies consent for planned procedure, identifies individual values and wishes concerning care, includes family members in perioperative teaching Secures patient's records' belongings, and valuables, maintains patient's dignity and privacy, and maintains patient confidentiality Entry 1 In Holding 10/15/23 07:05:00 Outcomes Met? Yes Last Modified By: Ofe Atkins RN 10/15/23 07:11:59 Post-Care Text: The patient participates in decisions affecting his or her perioperative plan of care The patient's right to privacy is maintained Surgery Checklist FT Entry 1 Patient Birthday, ID Band Procedure History and Physical, Identification: Check, Patient Verification: Surgical Consent, With Participation Patient NPO after Midnight: No Date/Time: 10/15/23 02:00:00 Results Reviewed clear yellow results Personal Items: Glasses Comments: Limitations: vision Complaints of Pain: No Pain Comment: denies Operative Site n/a Marking: Availability Equipment Verified: Does Patient Smoke No Patient states Yes Comment - Adult spouse- Umberto postop adult Supervision supervision available Case Cancelled in No Holding Area see comments below for reason Last Modified By: Ofe Atkins RN 10/15/23 07:13:08 Finalized By: Ofe Atkins RN Document Signatures Signed By: Ofe Atkins RN 10/15/23 07:13 Normal [facility] SEROLOGYOrdered By: Germaine Sauer on 10-15-2023 Beta HCG ( test) Ql Negative (10/15/23 7:55 AM) Normal [facility] Ambulatory Visit Summaryon 0 09-13-2023 Ambulatory Visit Summary Ambulatory Visit Summary INDU TS :1995 Visit Date:09/13/2023 Ambulatory Visit Instructions Your [...] Tab) cyclophosphamide (cyclophosphamide 50 mg oral capsule) fluticasone-salmeterol (Advair HFA 115 mcg-21 mcg/inh inhalation aerosol [...] Visceral hypersensitivity syndrome Refills: 4 Pickup at [facility] #61463 New polyethylene glycol 3350 (Miralax 3350 17 gram packet) 17 Gram By Mouth Every day Weight loss Nausea and vomiting Heartburn Bipolar disorder Stress-related physiological response affecting medical condition Visceral hypersensitivity syndrome Refills: 5 Pickup at [facility] #43220 Unchanged alprazolam (Xanax 0.5 mg Tab) 1 Tablets By Mouth 3 times a day as needed for for anxiety Contact prescribing physician if questions or concerns Unchanged cyclophosphamide (cyclophosphamide 50 mg oral capsule) Contact prescribing physician if questions or concerns Unchanged fluticasone-salmeterol (Advair HFA 115 mcg-21 mcg/ inh inhalation [...] physician if questions or concerns Pharmacy Information [facility] #[id number]: [address], [place] [phone] Allergies No Known Medication Allergies Problems Ongoing [...] choosing us for your care. Ramón Sandra [facility] Gastroenterology Office/Clin ic Noteon 09-13-2023 Gastroenterology Office/Clinic [...] Daily, # 30 tab(s), Refills(s) 4, Pharmacy: [facility] #[id number], 167, cm, 09/13/23 14:57:00 EDT, Height/Length Dosing, 48.9, kg, 09/13/23 14:57:00 EDT, Weight Dosing polyethylene glycol 3350, 17 gm, Oral, Daily, # 527 gm, Refills(s) 5, Pharmacy: [facility] #[id number], 167, cm, 09/13/23 14:57:00 EDT, Height/Length Dosing, 48.9, kg, 09/13/23 14:57:00 EDT, Weight Dosing Colonoscopy (Hospital Procedure) EGD Endoscopy (Hospital Procedure) 2. Nausea and vomiting (R11.2: Nausea with vomiting, unspecified) Ordered: pantoprazole, 40 mg = 1 tab(s), Oral, Daily, # 30 tab(s), Refills(s) 4, Pharmacy: [facility] #[id number], 167, cm, 09/13/23 14:57:00 EDT, Height/Length Dosing, 48.9, kg, 09/13/23 14:57:00 EDT, Weight Dosing polyethylene glycol 3350, 17 gm, Oral, Daily, # 527 gm, Refills(s) 5, Pharmacy: [facility] #[id number], 167, cm, 09/13/23 14:57:00 EDT, Height/Length Dosing, 48.9, kg, 09/13/23 14:57:00 EDT, Weight Dosing Colonoscopy (Hospital Procedure) EGD Endoscopy (Hospital Procedure) 3. Heartburn (R12: Heartburn) Ordered: pantoprazole, 40 mg = 1 tab(s), Oral, Daily, # 30 tab(s), Refills(s) 4, Pharmacy: [facility] #[id number], 167, cm, 09/13/23 14:57:00 EDT, Height/Length Dosing, 48.9, kg, 09/13/23 14:57:00 EDT, Weight Dosing polyethylene glycol 3350, 17 gm, Oral, Daily, # 527 gm, Refills(s) 5, Pharmacy: [facility] #[id number], 167, cm, 09/13/23 14:57:00 EDT, Height/Length Dosing, 48.9, kg, 09/13/23 14:57:00 EDT, Weight Dosing Colonoscopy (Hospital Procedure) EGD Endoscopy (Hospital Procedure) 4. Bipolar disorder (F31.9: Bipolar disorder, unspecified) Ordered: pantoprazole, 40 mg (more content not included)... Normal [facility] Comment on above: Result Comment: Elec tronically Signed By: Zenia ELLISON, Alex Kapoor.br\Date and Time Signed: 09/13/23 15:22 EDT Angelic 08-14-2023 MAHENDRA Telephone (ENDOMN) -------- INDU ST ([id number]) 1995 F Date Time Provider Department 08/14/23 KARINA CUMMINGS During your visit today, we recorded the following information about you: Twyla Salcedo MA 08/14/2023 11:09 AM Signed Received MRI results completed 08/02/2023, scanned to chart Twyla Salcedo General Cleaner II Endocrinology AND Metabolism [facility] F20 AND X20 Allergies As of [...] Of Date: 08/14/2023 (None) Encounter Status:Closed by TWYLA SALCEDO on 08/14/23 Normal [facility] CBC W Auto Differential pane l (Bld)on 07-20-2023 Basophils (Bld) [#/Vol] 0.03 10*3/uL [facility] Basophils/100 WBC (Bld) 0.3 % 0.0 - 2.0 % [facility] Eosinophils (Bld) [#/Vol] 0.00 10*3/uL [facility] Eosinophils/100 WBC (Bld) 0.0 % 0.0 - 6.0 % [facility] Erythrocyte distribution width (RBC) [Ratio] 14.5 % 11.5 - 14.5 % [facility] Hematocrit (Bld) [Volume fraction] 39.1 % 36.0 - 46.0 % [facility] Hemoglobin (Bld) [Mass/Vol] 13.5 g/dL 12.0 - 16.0 g/dL [facility] Immature granulocytes (Bld) [#/Vol] 0.03 10*3/uL [facility] Immature granulocytes/100 WBC (Bld) 0.3 % 0.0 - 0.9 % [facility] Comment on above: Immature Granulocyte Count (IG) includes promyelocytes, myelocytes and metamyelocytes but does not include bands. Percent differential counts (%) should be interpreted in the context of the absolute cell counts (cells/UL). Interpretation and review of laboratory results Abnormal [facility] Lymphocytes (Bld) [#/Vol] 0.98 10*3/uL Low [facility] Lymphocytes/100 WBC (Bld) 8.5 % 13.0 - 44.0 % [facility] MCH (RBC) [Entitic mass] 28.7 pg 26.0 - 34.[address] [facility] MCHC (RBC) [Mass/Vol] 34.5 g/dL 32.0 - 36.0 g/dL [facility] MCV (RBC) [Entitic vol] 83 fL 80 - [address] [facility] Monocytes (Bld) [#/Vol] 0.13 10*3/uL [facility] Monocytes/100 WBC (Bld) 1.1 % 2.0 - 10.0 % [facility] Neutrophils (Bld) [#/Vol] 10.32 10*3/uL High [facility] Comment on above: Percent differential counts (%) should be interpreted in the context of the absolute cell counts (cells/uL). Neutrophils/100 WBC (Bld) 89.8 % 40.0 - 80.0 % [facility] Nucleated RBC/100 WBC (Bld) [Ratio] 0.0 % [facility] Platelets (Bld) [#/Vol] 290 10*3/uL [facility] RBC (Bld) [#/Vol] 4.71 10*6/uL [facility] WBC (Bld) [#/Vol] 11.5 10*3/uL High [facility] Basophils (Bld) [#/Vol] 0.03 x10*3/uL Normal 0.00-0.10 [facility] Comment on above: Performed By: #### 5 7021-8 #### JIMENA Mark ([id number]) [facility] (C) [address] [place] [address] Basophils/100 WBC (Bld) 0.3 % Normal 0.0-2.0 [facility] Comment on above: Performed By: #### 5 7021-8 #### JIMENA Mark ([id number]) [facility] ([facility]) [address] [place] [address] 34087 Eosinophils (Bld) [#/Vol] 0.00 x10*3/uL Normal 0.00-0.70 [facility] Comment on above: Performed By: #### 5 7021-8 #### JIMENA Mark ([id number]) [facility] ([facility]) [address] [place] [address] 80592 Eosinophils/100 WBC (Bld) 0.0 % Normal 0.0-6.0 [facility] Comment on above: Performed By: #### 5 7021-8 #### JIMENA Mark ([id number]) [facility] ([facility]) [address] [place] [address] 22672 Erythrocyte distribution width (RBC) [Ratio] 14.5 % Normal 11.5-14.5 [facility] Comment on above: Performed By: #### 5 7021-8 #### JIMENA Mark ([id number]) [facility] ([facility]) [address] [place] [address] 03179 Hematocrit (Bld) [Volume fraction] 39.1 % Normal 36.0-46.0 [facility] Comment on above: Performed By: #### 5 7021-8 #### JIMENA Mark ([id number]) [facility] ([facility]) [address] [place] [address] 14090 Hemoglobin (Bld) [Mass/Vol] 13.5 g/dL Normal 12.0-16.0 [facility] Comment on above: Performed By: #### 5 7021-8 #### JIMENA Mark ([id number]) [facility] ([facility]) [address] [place] [address] 21229 Immature granulocytes (Bld) [#/Vol] 0.03 x10*3/uL Normal 0.00-0.70 [facility] Comment on above: Performed By: #### 5 7021-8 #### JIMENA Mark ([id number]) [facility] ([facility]) [address] [place] [address] 13354 Immature granulocytes/100 WBC (Bld) 0.3 % Normal 0.0-0.9 [facility] Comment on above: Result Comment: Yanet ture Granulocyte Count (IG) includes promyelocytes, myelocytes and metamyelocytes but does not include bands. Percent differential counts (%) should be interpreted in the context of the absolute cell counts (cells/UL). Performed By: #### 5 7021-8 #### JIMENA Mark ([id number]) [facility] ([facility]) [address] [place] [address] Lymphocytes (Bld) [#/Vol] 0.98 x10*3/uL Low 1.20-4.80 [facility] Comment on above: Performed By: #### 5 7021-8 #### JIMENA Mark ([id number]) [facility] ([facility]) [address] [place] [address] 57044 Lymphocytes/100 WBC (Bld) 8.5 % Normal 13.0-44.0 [facility] Comment on above: Performed By: #### 5 7021-8 #### JIMENA Mark ([id number]) [facility] ([facility]) [address] [place] [address] 19068 MCH (RBC) [Entitic mass] 28.7 pg Normal 26.0-34.0 [facility] Comment on above: Performed By: #### 5 7021-8 #### JIMENA Mark ([id number]) [facility] ([facility]) [address] [place] [address] 51809 MCHC (RBC) [Mass/Vol] 34.5 g/dL Normal 32.0-36.0 [facility] Comment on above: Performed By: #### 5 7021-8 #### JIMENA Mark ([id number]) [facility] ([facility]) [address] [place] [address] 14674 MCV (RBC) [Entitic vol] 83 fL Normal 80-100 [facility] Comment on above: Performed By: #### 5 7021-8 #### JIMENA Mark ([id number]) [facility] ([facility]) [address] [place] [address] 62353 Monocytes (Bld) [#/Vol] 0.13 x10*3/uL Normal 0.10-1.00 [facility] Comment on above: Performed By: #### 5 7021-8 #### JIMENA Mark ([id number]) [facility] ([facility]) [address] [place] [address] 64695 Monocytes/100 WBC (Bld) 1.1 % Normal 2.0-10.0 [facility] Comment on above: Performed By: #### 5 7021-8 #### JIMENA Mark ([id number]) [facility] ([facility]) [address] [place] [address] 71903 Neutrophils (Bld) [#/Vol] 10.32 x10*3/uL High 1.20-7.70 [facility] Comment on above: Result Comment: Perc ent differential counts (%) should be interpreted in the context of the absolute cell counts (cells/uL). Performed By: #### 5 7021-8 #### JIMENA Mark ([id number]) [facility] ([facility]) [address] [place] [address] 10088 Neutrophils/100 WBC (Bld) 89.8 % Normal 40.0-80.0 [facility] Comment on above: Performed By: #### 5 7021-8 #### JIMENA Mark ([id number]) [facility] ([facility]) [address] [place] [address] 10527 Nucleated RBC/100 WBC (Bld) [Ratio] 0.0 /100 WBCs Normal 0.0-0.0 [facility] Comment on above: Performed By: #### 5 7021-8 #### JIMENA Mark ([id number]) [facility] ([facility]) [address] [place] [address] 42205 Platelets (Bld) [#/Vol] 290 x10*3/uL Normal 150-450 [facility] Comment on above: Performed By: #### 5 7021-8 #### JIMENA Mark ([id number]) [facility] ([facility]) [address] [place] [address] 94507 RBC (Bld) [#/Vol] 4.71 x10*6/uL Normal 4.00-5.20 [facility] Comment on above: Performed By: #### 5 7021-8 #### JIMENA Mark ([id number]) [facility] ([facility]) [address] [place] [address] 19278 WBC (Bld) [#/Vol] 11.5 x10*3/uL High 4.4-11.3 [facility] Comment on above: Performed By: #### 5 7021-8 #### JIMENA Mark ([id number]) [facility] ([facility]) [address] [place] [address] CHEST ABDOMEN PELVIS W IV CONTRASTon 07-20-2023 CT CHEST ABDOMEN PELVIS W IV CONTRAST Interpreted By: Mag Santiago, STUDY: CT CHEST ABDOMEN PELVIS W IV CONTRAST; 07/20/2023 5:39 pm INDICATION: Signs/Symptoms:Persisten t vomiting, epigastric pain in the chest.. COMPARISON: Chest x-ray 07/20/2023. ACCESSION NUMBER(S): [id number] ORDERING CLINICIAN: ABIODUN OCHOA TECHNIQUE: Axial CT [...] is normal. VESSELS: No abdominal aortic aneurysm. PERITONEUM/RETROPERITONE UM/LYMPH NODES: No free fluid or free air. [...] Mag Santiago 07/20/2023 6:51 PM Dictation workstation: [id number] [facility] CT Chest and Abdomen and Pel [...] Mag Santiago 07/20/2023 6:51 PM Dictation workstation: [id number] [facility] Interpreted By: Mag Santiago, STUDY: CT CHEST ABDOMEN PELVIS W IV CONTRAST; 07/20/2023 5:39 pm INDICATION: Signs/Symptoms:Persisten t vomiting, epigastric pain in the chest.. COMPARISON: Chest x-ray 07/20/2023. ACCESSION NUMBER(S): [id number] ORDERING CLINICIAN: ABIODUN OCHOA TECHNIQUE: Axial CT [...] is normal. VESSELS: No abdominal aortic aneurysm. PERITONEUM/RETROPERITONE UM/LYMPH NODES: No free fluid or free air. No retroperitoneal hemorrhage. No pathologically enlarged lymph nodes are identified. BONE AND SOFT TISSUE: No acute osseous findings. . The abdominal wall soft tissues are within normal limits. [facility] Mag Santiago, DO - 07/20/2023 Interpreted By: Mag Santiago, STUDY: CT CHEST ABDOMEN PELVIS W IV CONTRAST; 07/20/2023 5:39 pm INDICATION: Signs/Symptoms:Persisten t vomiting, epigastric pain in the chest.. COMPARISON: Chest x-ray 07/20/2023. ACCESSION NUMBER(S): [id number] ORDERING CLINICIAN: ABIODUN OCHOA TECHNIQUE: Axial CT [...] is normal. VESSELS: No abdominal aortic aneurysm. PERITONEUM/RETROPERITONE UM/LYMPH NODES: No free fluid or free air. [...] Mag Santiago 07/20/2023 6:51 PM Dictation workstation: [id number] [facility] Work Phone: Radiology Study observation (narrative) [facility] Work Phone: CT Chest and Abdomen and Pel vis W contrast IVOrdered By: Mag Santiago on 07-20-2023 [facility] Work Phone: Choriogonadotropin.beta subu niton 07-20-2023 HCG.beta subunit Qn m[IU]/mL Normal <5 [facility] Comment on above: Order Comment: Total HCG measurement is performed using the Jade Saleem Access Immunoassay which detects intact HCG and free beta HCG subunit. This test is not indicated for use as a tumor marker. HCG testing is performed using a different test methodology at [facility] than other [facility]. Direct result comparison should only be made within the same method. Performed By: #### 2 1198-7 #### JIMENA Mark ([id number]) [facility] ([facility]) [address] [place] [address] Comprehensive metabolic 2000 panelon 07-20-2023 Albumin BCP dye [Mass/Vol] 4.7 g/dL 3.4 - 5.0 g/dL [facility] ALP [Catalytic activity/Vol] 47 U/L 33 - 110 U/L [facility] ALT With P-5'-P [Catalytic activity/Vol] 14 U/L 7 - 45 U/L [facility] Comment on above: Patients treated wit h Sulfasalazine may generate falsely decreased results for ALT. Anion gap [Moles/Vol] 18 mmol/L 10 - 2 0 mmol/L [facility] AST With P-5'-P [Catalytic activity/Vol] 15 U/L 9 - 39 U/L [facility] Bilirubin [Mass/Vol] 0.6 mg/dL 0.0 - 1 .2 mg/dL [facility] Calcium [Mass/Vol] 9.8 mg/dL 8.6 - 10. 3 mg/dL [facility] Chloride [Moles/Vol] 105 mmol/L 98 - 10 7 mmol/L [facility] CO2 [Moles/Vol] 19 mmol/L Low 21 - 32 mmol/L [facility] Creatinine [Mass/Vol] 0.77 mg/dL 0.50 - 1.05 mg/dL [facility] eGFR - PINF [facility] Comment on above: Calculations of lesli mated GFR are performed using the 2020 CKD-EPI Study Refit equation without the race variable for the IDMS-Traceable creatinine methods. https://jasn.asnjournals.org/content//ASN.2020 036491 Glucose [Mass/Vol] 147 mg/dL High 74 - 99 mg/dL [facility] Interpretation and review of laboratory results Abnormal [facility] Potassium [Moles/Vol] 3.8 mmol/L 3.5 - 5.3 mmol/L [facility] Protein [Mass/Vol] 7.3 g/dL 6.4 - 8.2 g/dL [facility] Sodium [Moles/Vol] 138 mmol/L 136 - 145 mmol/L [facility] Urea nitrogen [Mass/Vol] 15 mg/dL 6 - 23 mg/dL [facility] Albumin BCP dye [Mass/Vol] 4.7 g/dL Normal 3.4-5.0 [facility] Comment on above: Performed By: #### 2 4323-8 #### JIMENA Mark ([id number]) [facility] ([facility]) [address] [place] [address] 30663 ALP [Catalytic activity/Vol] 47 U/L Normal 33-110 [facility] Comment on above: Performed By: #### 2 4323-8 #### JIMENA Mark ([id number]) [facility] ([facility]) [address] [place] [address] 00902 ALT With P-5'-P [Catalytic activity/Vol] 14 U/L Normal 7-45 [facility] Comment on above: Result Comment: Edel ents treated with Sulfasalazine may generate falsely decreased results for ALT. Performed By: #### 2 432-8 #### JIMENA Mark ([id number]) [facility] ([facility]) [address] [place] [address] 21396 Anion gap [Moles/Vol] 18 mmol/L Normal 10-20 [facility] Comment on above: Performed By: #### 2 432-8 #### JIMENA Mark ([id number]) [facility] ([facility]) [address] [place] [address] 49503 AST With P-5'-P [Catalytic activity/Vol] 15 U/L Normal 9-39 [facility] Comment on above: Performed By: #### 2 432-8 #### JIMENA Mrak ([id number]) [facility] ([facility]) [address] [place] [address] 34779 Bilirubin [Mass/Vol] 0.6 mg/dL Normal 0.0-1.2 [facility] Comment on above: Performed By: #### 2 4323-8 #### JIMENA Mark ([id number]) [facility] ([facility]) [address] [place] [address] 43791 Calcium [Mass/Vol] 9.8 mg/dL Normal 8.6-10.3 [facility] Comment on above: Performed By: #### 2 432-8 #### JIMENA Mark ([id number]) [facility] ([facility]) [address] [place] [address] 27557 Chloride [Moles/Vol] 105 mmol/L Normal 98-107 [facility] Comment on above: Performed By: #### 2 4323-8 #### JIMENA Mark ([id number]) [facility] ([facility]) [address] [place] [address] 19179 CO2 [Moles/Vol] 19 mmol/L Low 21-32 [facility] Comment on above: Performed By: #### 2 4323-8 #### JIMENA Mark ([id number]) [facility] ([facility]) [address] [place] [address] 08482 Creatinine [Mass/Vol] 0.77 mg/dL Normal 0.50-1.05 [facility] Comment on above: Performed By: #### 2 4323-8 #### JIMENA Mark ([id number]) [facility] ([facility]) [address] [place] [address] 04485 GFR/1.73 sq M.predicted MDRD (S/P/Bld) [Vol rate/Area] mL/min/{1.73_m2} Normal >60 [facility] Comment on above: Result Comment: Calc ulations of estimated GFR are performed using the 2020 CKD-EPI Study Refit equation without the race variable for the IDMS-Traceable creatinine methods. https://jasn.asnjournals.org/content//ASN.2020 458029 Performed By: #### 2 4323-8 #### JIMENA Mark ([id number]) [facility] ([facility]) [address] [place] [address] 75217 Glucose [Mass/Vol] 147 mg/dL High 74-99 [facility] Comment on above: Performed By: #### 2 4323-8 #### JIMENA Mark ([id number]) [facility] ([facility]) [address] [place] [address] 82095 Potassium [Moles/Vol] 3.8 mmol/L Normal 3.5-5.3 [facility] Comment on above: Performed By: #### 2 4323-8 #### JIMENA Mark ([id number]) [facility] ([facility]) [address] [place] [address] 59048 Protein [Mass/Vol] 7.3 g/dL Normal 6.4-8.2 [facility] Comment on above: Performed By: #### 2 4323-8 #### JIMENA Mark ([id number]) [facility] ([facility]) [address] [place] [address] 80152 Sodium [Moles/Vol] 138 mmol/L Normal 136-145 [facility] Comment on above: Performed By: #### 2 4323-8 #### JIMENA Mark ([id number]) [facility] ([facility]) [address] [place] [address] 96616 Urea nitrogen [Mass/Vol] 15 mg/dL Normal 6-23 [facility] Comment on above: Performed By: #### 2 4323-8 #### JIMENA Mark ([id number]) [facility] ([facility]) [address] [place] [address] 86505 DRUG SCREEN,URINEon 07-20-19 24 Amphetamines Screen Ql (U) Negative Normal Presumptive Negative [facility] Comment on above: Order Comment: Drug screen results are presumptive and should not be used to assess compliance with prescribed medication. Contact the performing [facility] laboratory to add-on definitive confirmatory testing if [...] By: #### D RUG3 #### JIMENA Mark ([id number]) [facility] ([facility]) [address] [place] [address] Barbiturates Screen Ql (U) Negative Normal Presumptive Negative [facility] Comment on above: Order Comment: Drug screen results are presumptive and should not be used to assess compliance with prescribed medication. Contact the performing [facility] laboratory to add-on definitive confirmatory testing if [...] By: #### D RUG3 #### JIMENA Mark ([id number]) [facility] ([facility]) [address] [place] [address] Benzodiazepines Ql (U) Negative Normal Presu mptive Negative [facility] Comment on above: Order Comment: Drug screen results are presumptive and should not be used to assess compliance with prescribed medication. Contact the performing [facility] laboratory to add-on definitive confirmatory testing if [...] By: #### D RUG3 #### JIMENA Mark ([id number]) [facility] ([facility]) [address] [place] [address] 22132 Benzoylecgonine Screen Ql (U) Negative Normal Presumptive Negative [facility] Comment on above: Order Comment: Drug screen results are presumptive and should not be used to assess compliance with prescribed medication. Contact the performing [facility] laboratory to add-on definitive confirmatory testing if [...] By: #### D RUG3 #### JIMENA Mark ([id number]) [facility] ([facility]) [address] [place] [address] 29264 Cannabinoids Screen Ql (U) Positive Abnormal Presumptive Negative [facility] Comment on above: Order Comment: Drug screen results are presumptive and should not be used to assess compliance with prescribed medication. Contact the performing [facility] laboratory to add-on definitive confirmatory testing if [...] By: #### D RUG3 #### JIMENA Mark ([id number]) [facility] ([facility]) [address] [place] [address] 57492 fentaNYL+Norfentanyl Screen Ql (U) Negative Normal Presumptive Negative [facility] Comment on above: Order Comment: Drug screen results are presumptive and should not be used to assess compliance with prescribed medication. Contact the performing [facility] laboratory to add-on definitive confirmatory testing if [...] LEVEL: 5 NG/ML Performed By: #### D ANSELMO3 #### JIMENA Mark ([id number]) [facility] ([facility]) [address] [place] [address] 37601 Methadone Screen Ql (U) Negative Normal Pres umptive Negative [facility] Comment on above: Order Comment: Drug screen results are presumptive and should not be used to assess compliance with prescribed medication. Contact the performing [facility] laboratory to add-on definitive confirmatory testing if [...] CUTO FF LEVEL: 150 NG/ML The metabolite F-efgaj-vxzpjksrdfzmpa (LAAM) is not detected by this method in concentrations that would be found in the urine of patients on LAAM therapy. Performed By: #### D RUG3 #### JIMENA Mark ([id number]) [facility] ([facility]) [address] [place] [address] Opiates Screen Ql (U) Negative Normal Presum ptive Negative [facility] Comment on above: Order Comment: Drug screen results are presumptive and should not be used to assess compliance with prescribed medication. Contact the performing [facility] laboratory to add-on definitive confirmatory testing if [...] By: #### Kobi RUG3 #### JIMENA Mark ([id number]) [facility] ([facility]) [address] [place] [address] 68043 oxyCODONE+oxyMORphone Screen Ql (U) Negative Normal Presumptive Negative [facility] Comment on above: Order Comment: Drug screen results are presumptive and should not be used to assess compliance with prescribed medication. Contact the performing [facility] laboratory to add-on definitive confirmatory testing if [...] By: #### D RUG3 #### JIMENA Mark ([id number]) [facility] ([facility]) [address] [place] [address] 96856 Phencyclidine Ql (U) Negative Normal Presump tive Negative [facility] Comment on above: Order Comment: Drug screen results are presumptive and should not be used to assess compliance with prescribed medication. Contact the performing [facility] laboratory to add-on definitive confirmatory testing if [...] reported with dextromethorphan. Performed By: #### D SAMY #### JIMENA Mark ([id number]) [facility] ([facility]) [address] [place] [address] 23921 Drug Screen, Urineon 024 Amphetamines Screen Ql (U) Negative Presumptive Negative [facility] Comment on above: CUTOFF LEVEL: 500 NG /ML Cross-reactivity has been reported with high concentrations of the following drugs: buproprion, chloroquine, chlorpromazine, ephedrine, mephentermine, fenfluramine, phentermine, phenylpropanolamine, pseudoephedrine, and propranolol. Barbiturates Screen Ql (U) Negative Presumptive Negative [facility] Comment on above: CUTOFF LEVEL: 200 NG /ML Benzodiazepines Ql (U) Negative Presu mptive Negative [facility] Comment on above: CUTOFF LEVEL: 200 NG /ML Benzoylecgonine Screen Ql (U) Negative Presumptive Negative [facility] Comment on above: CUTOFF LEVEL: 150 NG /ML Cannabinoids Screen Ql (U) Positive Abnormal Presumptive Negative [facility] Comment on above: CUTOFF LEVEL: 50 NG/ ML fentaNYL+Norfentanyl Screen Ql (U) Negative Presumptive Negative [facility] Comment on above: CUTOFF LEVEL: 5 NG/M L Interpretation and review of laboratory results Abnormal [facility] Methadone Screen Ql (U) Negative Pres umptive Negative [facility] Comment on above: CUTOFF LEVEL: 150 NG /ML The metabolite Y-toxbu-kazkkglwlgrald (LAAM) is not detected by this method in concentrations that would be found in the urine of patients on LAAM therapy. Opiates Screen Ql (U) Negative Presum ptive Negative [facility] Comment on above: CUTOFF LEVEL: 300 NG /ML The opiate screen does not detect fentanyl, meperidine, or tramadol. Oxycodone is not consistently detected (refer to Oxycodone Screen, Urine result). oxyCODONE+oxyMORphone Screen Ql (U) Negative Presumptive Negative [facility] Comment on above: CUTOFF LEVEL: 100 NG /ML This test will accurately detect both oxycodone and oxymorphone. Phencyclidine Ql (U) Negative Presump tive Negative [facility] Comment on above: CUTOFF LEVEL: 25 NG/ ML Cross-reactivity has been reported with dextromethorphan. Drug screen results are presumptive and should not be used to assess compliance with prescribed medication. Contact the performing [facility] laboratory to add-on definitive confirmatory testing if [...] be directed to the laboratory medical directors. [facility] ECG 12-LEADon 07-20-2023 ECG 12-LEAD Ventricular Rate 68 Atrial Rate 67 P-R Interval 110 QRS Duration 126 Q-T Interval 419 QTC Calculation(Bazett) 446 P Woodland 82 R Woodland 77 T Woodland 67 QRS Count 11 Q Onset 249 T Offset 459 QTC Fredericia 437 Diagnosis Sinus rhythm Borderline short AR interval Nonspecific intraventricular conduction delay ST elev, probable normal early repol pattern See ED provider note for full interpretation and clinical correlation Confirmed by Lynsey Luna ([id number]) on 07/28/2023 12:23:14 PM Normal [facility] HCG.beta subunit Qnon 2023 Interpretation and review of laboratory results Normal [facility] Total HCG measuremen t is performed using the Jade Saleem Access Immunoassay which detects intact HCG and free beta HCG subunit. This test is not indicated for use as a tumor marker. HCG testing is performed using a different test methodology at [facility] than other [facility]. Direct result comparison should only be made within the same method. [facility] Human Chorionic Gonadotropin , Serum Quantitativeon 07-20-2023 HCG.beta subunit Qn NINF [facility] Lactateon 07-20-2023 Lactate [Moles/Vol] 1.4 mmol/L 0.4 - 2. 0 mmol/L [facility] Lactate [Moles/Vol] 1.4 mmol/L Normal 0.4-2.0 [facility] Comment on above: Order Comment: Venip uncture immediately after or during the administration of Metamizole may lead to falsely low results. Testing should be performed immediately prior to Metamizole dosing. Performed By: #### 2 524-7 #### JIMENA Mark ([id number]) [facility] ([facility]) [address] [place] [address] 63976 Lactate [Moles/Vol] 2.2 mmol/L High 0.4 - 2. 0 mmol/L [facility] Lactate [Moles/Vol] 2.2 mmol/L High 0.4-2.0 [facility] Comment on above: Order Comment: Venip uncture immediately after or during the administration of Metamizole may lead to falsely low results. Testing should be performed immediately prior to Metamizole dosing. Performed By: #### 2 524-7 #### JIMENA Mark ([id number]) [facility] ([facility]) [address] [place] [address] [phone] Lactate [Moles/Vol]on 2023 Interpretation and review of laboratory results Normal [facility] Venipuncture immedia tely after or during the administration of Metamizole may lead to falsely low results. Testing should be performed immediately prior to Metamizole dosing. [facility] Interpretation and review of laboratory results Abnormal [facility] Venipuncture immedia tely after or during the administration of Metamizole may lead to falsely low results. Testing should be performed immediately prior to Metamizole dosing. [facility] Lipaseon 07-20-2023 Lipase [Catalytic activity/Vol] 10 U/L 9 - 82 U/L [facility] Lipase [Catalytic activity/V ol]on 07-20-2023 Interpretation and review of laboratory results Normal [facility] Venipuncture immedia tely after or during the administration of Metamizole may lead to falsely low results. Testing should be performed immediately prior to Metamizole dosing. [facility] Triacylglycerol lipaseon Lipase [Catalytic activity/Vol] 10 U/L Normal - [facility] Comment on above: Order Comment: Venip uncture immediately after or during the administration of Metamizole may lead to falsely low results. Testing should be performed immediately prior to Metamizole dosing. Performed By: #### 3 040-3 #### JIMENA Mark ([id number]) [facility] ([facility]) [address] [place] [address] 36422 Tropinin I.cardiac panel Hig h sensitivity methodon 07-20-2023 Interpretation and review of laboratory results Normal [facility] Less than 99th percentile of normal range [...] performed using a different testing methodology at [facility] than at other [facility]. Direct result comparisons should only be made within the same method. [facility] Troponin I, High Sensitivity on 07-20-2023 Tropinin I.cardiac panel High sensitivity method ng/L 0 - 13 ng/L [facility] Troponin I.cardiac panelon 0 07-20-2023 Tropinin I.cardiac panel High sensitivity method <3 Normal 0-13 [facility] Comment on above: Order Comment: Venip uncture immediately after or during the administration of Metamizole may lead to falsely low results. Testing should be performed immediately prior to Metamizole dosing. Performed By: #### 2 524-7 #### JIMENA Mark ([id number]) [facility] ([facility]) [address] [place] [address] Urinalysis complete W Reflex Culture panel (U)on 07-20-2023 Appearance (U) Hazy Abnormal Clear [facility] Bilirubin (U) [Mass/Vol] Negative NEGATIVE [facility] Color (U) Yellow Straw, Yellow [facility] Epithelial cells.squamous Auto (Urine sed) [#/Area] 1-9 (SPARSE) Reference range not established. /HPF [facility] Glucose Auto test strip (U) [Mass/Vol] Negative NEGATIVE mg/dL [facility] Interpretation and review of laboratory results Abnormal [facility] Ketones (U) [Mass/Vol] 80 (2+) Abnormal NEGAT JAMES mg/dL [facility] Leukocyte esterase Auto test strip Ql (U) Negative NEGATIVE [facility] Mucus Auto (Urine sed) [#/Area] 4+ Reference range not established. /LPF [facility] Nitrite Auto test strip Ql (U) Negative NEGATIVE [facility] pH (U) 9.0 [pH] Abnormal 5.0, 5.5, 6.0, 6.5, 7.0, 7.5, 8.0 [facility] Protein (U) [Mass/Vol] >=500 (3+) Abnormal NEGAT JAMES mg/dL [facility] RBC (U) [#/Vol] Negative NEGATIVE [facility] RBC Auto (Urine sed) [#/Area] 1-2 NONE, 1-2, 3-5 /HPF [facility] Specific gravity (U) [Rel density] 1.025 1.005 - 1.035 [facility] Urobilinogen (U) [Mass/Vol] mg/dL NINF - 2.0 mg/dL [facility] WBC Auto (Urine sed) [#/Area] 1-5 1-5, NONE /HPF [facility] Yeast.budding Computer assisted (U) [#/Area] PRESENT Abnormal NONE /HPF [facility] Appearance (U) Hazy Normal Clear [facility] Comment on above: Performed By: #### 5 8077-9 #### JIMENA Mark ([id number]) [facility] ([facility]) [address] [place] [address] 40146 Bilirubin (U) [Mass/Vol] Negative Normal NEGATIVE [facility] Comment on above: Performed By: #### 5 8077-9 #### JIMENA Mark ([id number]) [facility] ([facility]) [address] [place] [address] Color (U) Yellow Normal Straw, Yellow [facility] Comment on above: Performed By: #### 5 8077-9 #### JIMENA Mark ([id number]) [facility] ([facility]) [address] [place] [address] 24159 Epithelial cells.squamous Auto (Urine sed) [#/Area] 1-9 (SPARSE) Normal Reference range not established. [facility] Comment on above: Performed By: #### 5 8077-9 #### JIMENA Mark ([id number]) [facility] ([facility]) [address] [place] [address] 11084 Glucose Auto test strip (U) [Mass/Vol] Negative Normal NEGATIVE [facility] Comment on above: Performed By: #### 5 8077-9 #### JIMENA Mark ([id number]) [facility] ([facility]) [address] [place] [address] 50631 Ketones (U) [Mass/Vol] 80 (2+) Abnormal NEGATIVE Un [facility] Comment on above: Performed By: #### 5 8077-9 #### JIMENA Mark ([id number]) [facility] ([facility]) [address] [place] [address] 68049 Leukocyte esterase Auto test strip Ql (U) Negative Normal NEGATIVE [facility] Comment on above: Performed By: #### 5 8077-9 #### JIMENA Mark ([id number]) [facility] ([facility]) [address] [place] [address] 48456 Mucus Auto (Urine sed) [#/Area] 4+ /LPF Normal Reference range not established. [facility] Comment on above: Performed By: #### 5 8077-9 #### JIMENA Mark ([id number]) [facility] ([facility]) [address] [place] [address] Nitrite Auto test strip Ql (U) Negative Normal NEGATIVE [facility] Comment on above: Performed By: #### 5 8077-9 #### JIMENA Mark ([id number]) [facility] ([facility]) [address] [place] [address] pH (U) 9.0 [pH] Normal 5.0, 5.5, 6.0, 6.5, 7.0, 7.5, 8.0 [facility] Comment on above: Performed By: #### 5 8077-9 #### JIMENA Mark ([id number]) [facility] ([facility]) [address] [place] [address] 71902 Protein (U) [Mass/Vol] >=500 (3+) Normal NEGATIVE [facility] Comment on above: Performed By: #### 5 8077-9 #### JIMENA Mark ([id number]) [facility] ([facility]) [address] [place] [address] 25394 RBC (U) [#/Vol] Negative Normal NEGATIVE [facility] Comment on above: Performed By: #### 5 8077-9 #### JIMENA Mark ([id number]) [facility] ([facility]) [address] [place] [address] 08617 RBC Auto (Urine sed) [#/Area] 1-2 Normal NONE, 1-2, 3-5 [facility] Comment on above: Performed By: #### 5 8077-9 #### JIMENA Mark ([id number]) [facility] ([facility]) [address] [place] [address] Specific gravity (U) [Rel density] 1.025 Normal 1.005-1.035 [facility] Comment on above: Performed By: #### 5 8077-9 #### JIMENA Mark ([id number]) [facility] ([facility]) [address] [place] [address] Urobilinogen (U) [Mass/Vol] mg/dL Normal <2.0 [facility] Comment on above: Performed By: #### 5 8077-9 #### JIMENA Mark ([id number]) [facility] ([facility]) [address] [place] [address] WBC Auto (Urine sed) [#/Area] 1-5 Normal 1-5, NONE [facility] Comment on above: Performed By: #### 5 8077-9 #### JIMENA Mark ([id number]) [facility] ([facility]) [address] [place] [address] Yeast.budding Computer assisted (U) [#/Area] PRESENT Abnormal NONE [facility] Comment on above: Performed By: #### 5 8077-9 #### JIMENA Mark ([id number]) [facility] ([facility]) [address] [place] [address] XR CHEST 1 VIEWon 07-20-2023 XR CHEST 1 VIEW Interpreted By: Salina Hall, STUDY: XR CHEST 1 VIEW; 07/20/2023 4:05 pm INDICATION: Signs/Symptoms:cp. COMPARISON: None. ACCESSION NUMBER(S): [id number] ORDERING CLINICIAN: ABIODUN OCHOA FINDINGS: Heart is normal in size. There is no consolidation or pleural fluid. The mediastinum and bones are unremarkable. There are bilateral nipple shadows. COMPARISON OF FINDING: IMPRESSION: No acute cardiopulmonary disease. MACRO: none Signed by: Salina Stanton 07/20/2023 4:17 PM Dictation workstation: [id number] Normal [facility] XR Chest Single viewon 07-19 No acute cardiopulmo nary disease. MACRO: none Signed by: Salina Stanton 07/20/2023 4:17 PM Dictation workstation: [id number] MMODAL Interpreted By: Salina Hall, STUDY: XR CHEST 1 VIEW; 07/20/2023 4:05 pm INDICATION: Signs/Symptoms:cp. COMPARISON: None. ACCESSION NUMBER(S): [id number] ORDERING CLINICIAN: ABIODUN OCHOA FINDINGS: Heart is normal in size. There is no consolidation or pleural fluid. The mediastinum and bones are unremarkable. There are bilateral nipple shadows. COMPARISON OF FINDING: [facility] MMODAL Salina Stanton MD - 07/20/2023 Interpreted By: Salina Stanton, STUDY: XR CHEST 1 VIEW; 07/20/2023 4:05 pm INDICATION: Signs/Symptoms:cp. COMPARISON: None. ACCESSION NUMBER(S): [id number] ORDERING CLINICIAN: ABIODUN OCHOA FINDINGS: Heart is normal in size. There is no consolidation or pleural fluid. The mediastinum and bones are unremarkable. There are bilateral nipple shadows. COMPARISON OF FINDING: IMPRESSION: No acute cardiopulmonary disease. MACRO: none Signed by: Salina Stanton 07/20/2023 4:17 PM Dictation workstation: [id number] [facility] Work Phone: Radiology Study observation (narrative) [facility] Work Phone: XR Chest Single viewOrdered By: Salina Stanton on 07-20-2023 [facility] Work Phone: Coding Summary.on 01-21-2021 Coding Summary. CD:[id number] Gh0b Ww+PGhlYWQ+AN8VZECkO32ed QMsqS6NX9fDHE1WQRXFYXRYW S7VFY7okQE5UFriV5TknjWx WhlsrHXzUB83ALy5FWF6rQho FAuizX8ctPZtX6f0MrRlOQ95 fR45EXbtHLJtMhO6WvKlpcpc bWFy Q9mnFfJzuKGhJjx+PHRhYmxl IHdpZHRoPScxMDAlJyBzdHls PT8eLs6iLUBcBAWywCaffXEg OiBj h7rwVZKwGWazBJ8fjUmuB1Mx wDK8STKys0f3Uz87aXL+PHRk UNJ6cQvzDPozy128QrLjw7hu IDM3 gWXdBKskRUK1Y47pn4A4UWTy XVPfCZF4qJE9gG8bkWyhlcxu I1DylEHuUzM8WBC0xCRvyB1h bGln lpydzW5jRhe+M22OEZ1SIFCW YK8GCzh5Z3HrBdayfCM+PC90 UBCgGY87lMPraNOzc6qwkMq3 JzEw PYSzBHN0fBvaIWmxu2JqFPVb Z92fhSLle6J0LUTyyPnuiXJg SuCeyWT7qC7kBZccglsvr1sc dzsn Thogt1hpyx76bO69S45iEEjf LAVwBLB1SMLvLORkoHsavs2z bA8oWw6+VQyud6nsw3pgfNw6 IjIw ABYgwuJwsEqnSMH7r8FaIa57 H4NflVgcr7CtRrt7yd14uBBq i4U6eVL1GIsoCPRipO6rXFzt ZnQ6 YUOwPvQdhZ99xVZjAAmzTl7e vDomxAboMW8sSNGxkwihYRJv xG4uWNHanNAppNpoZA8bSTJy bjtm q893PhTqTTU8NQOseKQvZ6Fo qS5yIxUwCTHyQYQhY4QpfYIg OGjhH707ZMpeUdP5HESegcBz Y2Fs FNCfvTuzQtK3h1C2Qp3Tj0Us nazgCDI3NTogTZWoUgS5HgYi WxP6J1QqBlm8ZFFuiYeiTO8f J3Bh GRDheeiudkollQA4HKWaGQEa rD57yKUsSBebUx1ma6V2j308 PGHpTGDvmN75Dt0dlMimEIDy dCBU tY3mzxczq8gvitvxFiGaDKQi IUj7DOj8LVGboXtgZmObETZ7 WpI5APC5cUVvzK0wpVpptums dG9w Oyc+N00ykP5vDCI9JJO0nnag NHKjobJuEV61WN17P5NhUcrw dGFibGU+ABFnznExbHhjKY4r YmFj m5kvc9ZdTDywW7WyUYLmTHfh Qwq8LPLsYWZ1jBF9kD1gSGFr DMdew4A6fPJ5V6QcpjAgsj7a b2xs BQCnEFrqX02keEMjt8B9ORVy bMB6MMTowQzbBfFezZ73Tby+ HPZkmWkqd1XqZutqj2rcq1zy dGg9 CqHdOSNlwiFxoKkvGWP5b0Ya Hx93Z01qOJubVLMvGQEnROYg GJVbeTkeyb7fvY5oFd0+PGNv bCB3 wEZ9pK9fSHZdMhD9CBozJ757 DbYayHOeQoygc6syi8zbtRc1 DjYbFDNzauNwrXttBTF9k6Aw Lz48 Y63kJErhLCOuAXDzRCGjMNAo eLtnyw7skI7lMj0+KY4ka0oi xt46nB33fGA+QKHzXNP5bBlv PSdw KYZcuQ8cZEevJwV6WMUkReJg mO09tMGcLBldLg8emTrxoAay JD5lMZCfsemog379AoOyc1iy IDEw fXSuXJmfAEL3H50ts8C4ADDv ZYUgCWV4cGS6kQ5rwIbhckle bGVmdDsgdmVydGljYWwtYWxp Z246 IHRvcDsnPlBhdGllbnQgTmFt STi0N4SiEaj9DGWnnPfoGN6k fWFmHFgfCz9nwSzxgFyhEJ7a NTBp jegkj794RzIbk5knFAYspOUn HNtaMFK1I37je1R9NNAgUUVo NGS2sKL9aM2bgBvvmilraNKs dDsg rbVrkQqiJPulFXqvP359GILr rTzmSzIybyWhLVFipCN0JC82 BW11zLOdj2X1mCK0M5XrBRTu bmct mbvasCZ9IQGvPMLwgP38Xu1a iDxhCt7nLKJuPJD8RBLbuRDo D4QqhS5wWiNiSTVlAMKiD8Il eHQt XBerZ805QWgcKrH9EHJubuJq I6JcYIDyrBenHdK4s4V0Fi2T R9D6FE09UP11mZSxm4T3nPT2 J3Bh PCDizpqwbvwesRS5DVOwWUIt hT89Il0ldTddNp7gGMCqBPO8 KDEphQAqY8YhvV5rSgKlZMAf MDAw D4IpeUVnFLueO335UEwvRiZ7 CXTwadAaY0NtQLAowOhbKqH1 l1O6Wo8BSUv8JL43PG97lSXd c3R5 iSA6F7WxTKVdgllcrqgbxMD5 GSAzQRBhfG82Fz9kvGppSm9u UVEkPYV6TCLsvLYoG7KthL9v OiAj ZFShPULvM2RbaCHhYZstR869 QVztYiK6GNZmjmIqC4RcPMMv gLbnDfF2q3H8Nd7JVPMmEN58 IFR5 eEA1JG37NT86B5NmUsdgdKUg bGU+PHRhYmxlIHdpZHRoPScx RYDaQlQbyLgiXC6uFt8pPUMs LWNv jYxffMQvPhSxs7usHMHxJRco XB9tqYlmY5TijBF8OVMrv5d6 Mz01E12sE5XxoMP+PGNvbCB3 aWR0 nX3xBqEbFaN8YEokR593NiZc cYDdXnjog2xos9aauVk2ZoP2 IKDlabHscZygBAS9i4RcDe78 Y29s IHdpZHRoPSIxNSUiIHZhbGln ns4kuL8sQc3+IPDsmLO1wLU9 rG9hDxLoSyB1TTxnK197FyAu cCIv Atyme3lbx5nezPp4YoAkECRp jiEyvJzmZQG1j9OhNs91P9Gr uJkfm1VsKuc2od72iYTsh4D5 bGU9 E8MpOSGvvkbluPLbpZyhQR3p DTBtayhsXHZfkG6tYIEmB4r6 OaMuCeZ9UOxsR2OxtdV9LKLf cHQg QRowMIP8E86xj1S1REAoELVr RBE3yKC4cH4moCqujdcpoLJm dUuuswXdtPdyXDfbNDgrB656 IHRv qIgrNSEpfZ3bNTYhxVCcaKcy AY2hPYZoikyxGhGUTOJVZRSo QQAOUNUTDOzROm52B2MiZrw5 ZCBz fYblQJ0ocFJxHNwkSt4xlRau qRhlOX7vPJHcjpdpOALxoL7o JBLvdNGvfUfdYT1tIQRkwife b250 ReFsBIE6BRSylDHsF5ZhoA7f KvPrKFHiLXRtS1YddUJvSLmn L271HWkwOyH6VGYwzmBpB8Mk LWFs aVtvKoY3k9N2Jc0mTx2bLf2y TAu6IH51LD57iKUjc2R9dUX8 X5DyUXDynfgjjektsEX8JFUm MDUw nQ51zDHiXQwwBf7sz8H5a358 YLSqKRBdnN26Es5kxCztRMZs nNFHqS5lwutrc1sgynrhXzZk MDAw DDg5EIc7WRMgyRnzAcVyFZI9 NrN4LJS3uBNllL8meIxqejcu pJ5rSnj+LsJwNWIxwoT9D3Fe Pjx0 DAGamCdlCD6jtGHkMOvnGp1w gZgixMbeDZ3pMBCjowuuXLCp pN5jAPUujTClyIxiGV6xHQYh bjtm w101LjQwKDJ8HKBipZPqU3Ma tS3vGrMrQERwHTSrZ8FlnLEa GIclS009CZfuKxO4YRLvwdBw Y2Fs VHIumScxJyB4r0L9Yd3PGM8u xIM2E6RvQjh7QXIqrDelOD4i jBChFPdoIw9vvOqlaFmfVQ5h NTBp hkhjVTZeyO1mDBXwcHEfxLhz JJ5bDQTpmaylt162WcGqOWI6 BDAbzJEtD4TnbN4oEkIjXRKn MDAw T1PpxHRfVEbyR458INfaJeA6 AVSrhwIbQ5RcKZGqzCuvIeQ6 q8H7Bx9UkTVjFPPtEO73RR32 ZD48 S7VxDllwxKPswPY+PHRhYmxl IHdpZHRoPScxMDAlJyBzdHls YQ4wSm9kGOPbSNAziMfcyZVq OiBj r1wtHBDyEJzaOF2laRczN1Fl tDU2ZOFef2t2Rk06A25sT0Al dXA+AXRijZL5zNX4hD4kXzAb IiB2 LWwpX121YuPgeADcOmbyo1ho l9idwFd3HaPiAUBsnnIvcTzk CDE3b1UsVy10V57oKPebNMTg PSIy NBUkUFMbiIrmrx9dkU8qSb7+ GTXuuYZ2zIX5sS9xYnAvEuR2 FYwoU972TwHwcYOsXawqE45h Z3Jv dXA+RDGvHhm1FDQuyMliLD3a rKMuEGwvNt8mJYW9UrInNbXu HRdfK7JuMJHvoozvopwqoZG6 IDAu RBKoqG14Eh8rgCxlHe8sYOLt GVZ9MYJklSGtM2CokB8rZaPt NHGhSMYnH1EzjGOyILbhI311 IGxl OhP0KYCfixWzG8EdONJmoZwb BlQ1r1F3Wd0KlFlscYMlJS5u SvVwSLv5Y2GwHyc2SXThhEfu ZT0n jJWhGOyrUy3rwWwqiSaoPA8r KFPvpqgvg280FrJvj3jsRGHy tMSaQNuxQDE4A52ub3T7OZWu MDAw CHT7kUD2jM2suKtbtlttsUWr tPjzauPgnIcjMHarNNjfZ207 BMErrKrjNzXZEnt2X9CuNue9 ZCBz nHjyRM9ogTGeYTowMm9atOre xUglAT3xSZAeybrsf238LtMx y0mdFSCrsXYzLTrrCQY6G66g b3I6 PEOkEJSpOPA4hXV2tH7ukZmh bjogbGVmdDsgdmVydGljYWwt YBwvC543FJOnnVjbNe1QGvf0 L3Rk Mhx6ZBMwuXakEX0wmNLvEMdx Ia2vqFsnqXdvHZ8uIZTioqbb y242MpHge9mePFTimHLoQPot ZXM7 U84uo0S6TFKwPZTjLHV1mAP1 tE1afSkgvfowiOLgkUfaxdSy vKfkFPeeWIdxA519HSZksFes PlBh eWVyOjwvdGQ+GT15ni90J4Xf CkzdLwk0OTXoRAD3wFS7uQ2r EDIlWSluq6U1pUK4E3HoegRy ci1j b2xs (more content not included)... Normal [facility] Coding Summary. CD:[id number]:[id number] Gh0b Ww+PGhlYWQ+OL4HDLOpH47qx YJsaY9YO3cRMZ7ZIZVPDYPUP O4DZE4zhVY1YDntW1YouhYi PijowGQdTD68OWt6TWM4qTga IEbkoI7zyUAxD9i9RkXjHC94 vD03XTkeFOMsMyC0EgGrkixd bWFy V6vuKrHncCKdHrm+PHRhYmxl IHdpZHRoPScxMDAlJyBzdHls VY7tCt9gCMFkEYZqqRvknGKm OiBj q5xoQMCvPZylOS7taPdaO9Pl jBJ6EDLxq2u6Em65nUW+PHRk RGG9mXfrUOcii861PkBtr4oj IDM3 hOBaNPbwBTL5G48wd8A0OMMh HJWlXPR4eKC3tW9qjJiipkfw B3OtiCOqGaZ9SSI9jVZvqJ1q bGln svcspT3eHbv+M25VXQ5XFPCG BR1GVie0C4XjStcatDB+PC90 WMBrKN15uAPqbHNbo4mehPu1 JzEw FUIlPLM6vQhcIBlgt8VpXZIl R94jmPIng7S8WIIynGzwdBWi KcIfjTG9zP8nTFcrffefb4fw dzsn Mpqqi6ykfq94fY38I36eUCjv BGMpVUL7TZTuVTHfiBoaqx4b uM3hLz4+HDegv2csx4vdlAv7 IjIw EJVjlrQugIivQZX1m1DiWb18 L2HbtUbww8GiPra6cl58uNZv d6A3pGB2DTutSNBemI0sNWbr ZnQ6 RWSxFzOarK21yNQlQDdiBw4t rQpujRtzIF8tBSIzsjqxEVAb cU3kPFSuuWTmaYexLR2dMJPr bjtm x170LbJhZQH9WPZsaLOlT5Uq bO4iNaSaKQHjEGCdP0TigFLn EWttK828LBxqRyA0TYQxhpMx Y2Fs OEKqvVyzUlH3n7L1Hl3No4Dd iaipVEX3PPcrVCEfZkL3XcXs UnK4F8EeOlg0OEQhnYlgXX1j J3Bh EKEgtfoddxwshLK1CZExOKFt qY25mMWfOEkzSp6vd7W7t286 PPZePLNhaQ15As2ohLhmECEg dCBU bA3ruohjc4ycoppcQjDkZTQe KEh2LTa7DVLzlCgkZvKlNXO5 TiL1FJE4eDDtjS3tiAzltlum dG9w Oyc+I36enL6xWVS5KRX9spmt JUHlfeKjTU59YB40S2SbYtnt dGFibGU+LTCznaRzrMexRY6x YmFj f8ery5FtPHguA8LmHOJdMUyw Hpk2VQTsIKY9dYA5gS4eTAJf UTnsn1J5qJZ0I0AwryVive1k b2xs MLBaZCpqC85veMGww7W3UTVq cMA4ONWuuOhyYkMbeS47Oik+ HYEuhHndx6SuBeoat5tai6dd dGg9 GsJcUTUvflPcjMahOWN1o8Ym Qs82B22kEAkfDTFsZQDyEAFw IZLzhXiqgr7vqQ1aNp6+PGNv bCB3 oXC2lM3rDZOvUnZ5ZPvmU849 FoUjwPDpIrsry6vnv2zjiTx0 FqOlYSSskxJxkHwaJJX2l6Zu Lz48 R89iZOpzUOQzQITsCZCoNIIq dQhdhp3yrS3sSy8+UK2fg1xy ro19xP99mFG+ETOwBTP5vLis PSdw MIDigU7wWAjoLmE0FHZrDyUu iY84nODmTGzbZv5dcNvqoCus LR2jMRMmycufv046DpXec5mu IDEw tCThSLioVPD8H43qn6R6MWFe XGZhRVN2yBG8dR6edYueoapr bGVmdDsgdmVydGljYWwtYWxp Z246 IHRvcDsnPlBhdGllbnQgTmFt XRp8Q7BoEgr0DTBbiPptHV9v fIPrJUhwRo3yyQuqdLbcBP4n NTBp slzmt747TeEez9sjELTenYUj AYrrZUE5Y91vs0H8LZXvFSJt PNT6yNS5mQ2sgCyygivvxYNv dDsg lxFkcVpgRUsjUAasC211JWZz oHopQnMdphHjOEKguRL4XP31 FG67nFLto8A8bSM3Z0RkDFYv bmct iacdyBK4RQGlWBKugV27Dz4x qMunHw6cVQRrXFO5IHPwtZVf Z9FhoY5sDvThYNOmQTIlA1Kh eHQt XRwdZ672NNrwWkO8WUYtcuZx O1WgGDHlzWtzVaD5n6D5Qj6W J4V9EE18DQ51sLSrn3H3nCH7 J3Bh BUWgqsfvosfaoJZ4HEMiKWLg cJ41Ia7lbClrJp9xAXIwIET7 IGFlyTZsG9RgbW2nLeDdQUId MDAw R8DsfTCkBAaeL298EGelIhC6 PMYmddWxG7QzYUXcoTimQlD3 m0S9Ra7DDZk1ZA13WZ59pRJx c3R5 eRM7A6HrSYVebicmyifiwNB2 WJMjMPPcnX51Lp2yvAftDh3e CFWcNZK5MFKxrVDnE3YxuZ3o OiAj HIFsLPXdM3WccJByEFwsU907 NRgeXvQ0GFHooeXjO5ZzJLUz jFksCfY5r6H7Xd2BAGFxHR23 IFR5 eQJ8HP44CP00K8UwZceonYIl bGU+PHRhYmxlIHdpZHRoPScx GLBuYzUwxEteUW1zOn8kQLDs LWNv tLxmtSReGnLdf8bcABSjDHys KS1vxOjyL1HcaOM0RFCoz8u0 On65Z44iK6LveWO+PGNvbCB3 aWR0 nQ9aZzWdVhY3BUpoS179NmQg fAYjOimat8rhx8mibPf6FaB1 CDYgdzGzkYqsTBE3b2QgJg98 Y29s IHdpZHRoPSIxNSUiIHZhbGln vg7ofG4kZg5+XYEuoAS4fSR9 wA6sTgPtUuQ1ARfdR067QgLb cCIv Edjkw7byv9tiuWt8OpVqNOTu yzTpoBgvHGH1e6WjVi77G7Ge nUkqc4HxMfc5qx71vJWth3C3 bGU9 S7BfQMMjcclkaJAgwEesMO9o MFPpsdafVBXhoC3zXYYaY4k4 ThMwQmO4KRmwO1RustX8OEQw cHQg AQxcBSA8S57qw2K6VIQfHFEn FIY4zYY8wY3yrIvhukjjtYBg bNfdxvQlwBofTVebCDofM274 IHRv fYdzSTAkbR9lEGExeFMfhDon FM0mAEMuduutZcUNWRTIIKSy SJGXETMFEJqNAq45N4SoOuh0 ZCBz sUykUU0kdQPxXXqsSi4tgHgi eSavGC9vNKGkdbhlLFLmpQ8f FJIcsEGhkBwrAV3hMUJlqwmp b250 MjDwZLF8YLOjeTZwE5JafO1k LfKcWGJbLYHcG8JnyHFlCNuy D909DRaoNdX9UCVfkfOhT0Wf LWFs uOyfVrM6o3V7Sb5xNz3iZe9t BVz3PC24KV97yISrq3L2iHI2 G7ZgGRPvuadiiwyzeUE0RJDx MDUw aY48sFNhUAxgNv8ir6S9b776 KQAzOOPlbC88Ja4xaLiyZNBs mLXHxH5glxndl0pjrkawJfHm MDAw TOw5TLw4IKLfyWugBiEwLZA8 CyE1IDQ0iBKkgW4goHhaoeer nU6eLtz+SpZpTTPrqwR6J8Yg Pjx0 KLQtrQavGQ2lmGGcMFxuOz5c nSdyuLibYZ3sPUGcitxmWPKj iD2lXFCiwQPrpHtcTI7lQMZd bjtm x393HsVjJVA2KRHnzTGlV0Ek sB9cVjFhEYTnBZKoX0QqyIEt CHbxV755DCgiXcZ1JYIxokHq Y2Fs WTObyZxnQdC8e5G1Pu2QIH9l sYD7O6WcNaq9XXXgaPhgTC5v mXPiEZjjMa4srWzmqScsON0g NTBp cwdvHGFiwH2pKVBnlSOuiYfj ZJ4iDDVxdlfpz673XeNnQSF6 ZUJajYCpI8PdkJ2jWtLhSUPc MDAw F0MovWSeUDniA915XLuhVrD3 FZXieoXtU0IlYUFmlMxdJxU3 i8E9Ny3KkOJlNFUjBY92XR75 ZD48 Z5YgQytgbVLbpCD+PHRhYmxl IHdpZHRoPScxMDAlJyBzdHls OF1sEm0aPQVgBGQfjXfwmRAo OiBj l5ivEQNqZJlwAU1snJhuD7Eo oJW0HZEvt0d8Mp34F29eA0Kh dXA+ZDSbuZP7eIL5nW5aPkTz IiB2 TIvpE188MvGouBTrXtmdc7zn u6ezdYm4OlNrXBZniqIgtEor WRI1b0XzNk23O79yOVofUJRm PSIy OFHrYXAusTziwl0qfI9aJn1+ SFXchUE8lMH5vM2mFfDcGnX6 ZOhtR590BsDhjNNmPexjT27c Z3Jv dXA+YFGdNvo3UWDjbRkzII6g cAKwZBouGm2qAOV5NjPnChVp ERpkT3CfYJBbchjiplvvwJM5 IDAu PGKfrC83Bp0tcYmrYc7dDPHk BLL9CNMruQRfX6OsqB8eTyOq LMUdGINpL4AbkKVsCRqmH420 IGxl IwI6BBFtuqIgI5MoREQsySyi ZrH9z1W2Mi3NrLwnkUSvPJ1u EjHjKKs0C7MwAhe4XBUsbEvr ZT0n bFNbWUdjLb8suRazpDwoNW5l DZEbwbwma445SjRha1tuCZJk cYLlBKqzTVP0G78km7U6LNOi MDAw SCM4vNG9aU0kfIzqiqpzqEHm sNvbrjXkhZggRGqjNOmuY655 CJYaoDynObVWAfh8H5EmErg5 ZCBz nUtfAG7ugZSjABnvKj2ubClz dEfxCR6kJTJxlcbxb866WcZr l2vaTNSihPDvEVhoGHU9U44u b3I6 JOOmKBAgQMP9qDR0xN0idDmz bjogbGVmdDsgdmVydGljYWwt JOurD273KSSvwGzxZo8PAgm6 L3Rk Rpb3HHWkzDciMM9xuEFdMKcv Bf8pkSdjbFqpKW5wPOGryyae p053WyTge1pzKRVgsQIrJCzx ZXM7 O07ox0G5DWTgIRIyAWD8bRK8 jU4thFedtjewpYYmhYrwrqZm tNufXCuvCEjvR868CLCsbCbp PlBh eWVyOjwvdGQ+ND40be30K3Lj KjyaQvg6UJMcBHC5qZP3dL4h FGSwRQrvx4E8mZX8L1RjndOu ci1j b2xs (more content not included)... Normal [facility] XR HYSTEROSALPINGOGRAMon XR HYSTEROSALPINGOGRAM * * [...] nondilated tubes. No spillage. IMPRESSION: Please see ELEMENTARY INSTRUCTIONAL COACH report for assessment of real-time findings. Chairman Ceo: ANTONIETA Transcribe Date/Time: Jan 20 2021 1:37P Dictated by : DAYANNA LEROY MD This examination was interpreted and the report reviewed and electronically signed by: DAYANNA LEROY MD on Jan 20 2021 1:45PM EST [id number] [place] Rubella IgGon 01-05-2021 Rubella virus IgG Qn (S) 20.80 [IU]/mL Invalid Interpretation Code Immune >0.99 [facility] Comment on above: Result Comment: Non- immune <0.90 Equivocal 0.90 - 0.99 Immune >0.99 Performed at: [facility] [address] [id number] PhD Randa Ochoa Performed By: #### 5 [id number] #### [facility] [address] [place] [address] Varic IgGon 01-05-2021 VZV IgG IA Qn (S) 207 Invalid Interpretation Code Immune >165 [facility] Comment on above: Result Comment: Nega tive <135 Equivocal 135 - 165 Positive >165 A positive result generally indicates exposure to the pathogen or administration of specific immunoglobulins, but it is not indication of active infection or stage of disease. Performed at: [facility] [address] [id number] PhD Randa Ochoa Performed By: #### 5 [id number] #### [facility] [address] [place] [address] Consent for Treatmenton 11 Consent for Treatment [id number]#1.00CD: 127 Normal [facility] Consent for Treatment [id number]#1.00CD: 127 Normal [facility] Free T4on 01-03-2021 Free T4 [Mass/Vol] 0.75 ng/dL Normal 0.58-1.64 [facility] Comment on above: Performed By: #### 2 [id number] #### [facility] [address] [place] [address] BevV3dat 01-03-2021 HbA1c (Bld) [Mass fraction] 5.4 % Normal <=5.9 [facility] Comment on above: Performed By: #### 5 [id number] #### [facility] [address] [place] [address] Physician Orderon 01-03-2021 Physician Order [id number]#1.00CD :127 Normal [facility] Physician Order [id number]#1.00CD :127 Normal [facility] Prolactinon 01-03-2021 Prolactin [Mass/Vol] 45.14 ng/mL High 3.34-26.72 [facility] Comment on above: Performed By: #### 5 [id number] #### [facility] [address] [place] [address] TSHon 11-01-2021 TSH Qn 2.09 m[IU]/L Normal 0.34-5.60 [facility] Comment on above: Performed By: #### 2 [id number] #### [facility] [address] [place] [address] Vitamin D 25 Hydroxyon 01-03 25-hydroxyvitamin D3 [Mass/Vol] 58.1 ng/mL Normal 30.0-100.0 [facility] Comment on above: Result Comment: Vit sarabia D deficiency has been defined as a level of serum 25-OH vitamin D less than 20 ng/mL (1,2) by the [place] [employer] and an Endocrine Society practice guideline. The Endocrine Society further defined vitamin D insufficiency as a level between 21 and 29 ng/mL (2). 1. IOM ([place] [employer]). 2010. Dietary reference intakes for calcium and D. [place]: The National Academies Press. 2. Carola MF, Pita [place], Donna HERNANDES, et al. Evaluation, treatment, and prevention of vitamin D deficiency: an Endocrine Society clinical practice guideline. JCEM. 2010; 96 (7):1911-30. Performed By: #### 5 [id number] #### [facility] [address] [place] [address] Coding Summary.on 11-21-2020 Coding Summary. CD:[id number] Gh0b Ww+PGhlYWQ+RR6QFJMyQ56er IWdmS8BK4iADG7FEDLLSDRJF E5LFZ8qrWH9EOpuP9DgtuRg BvxvtLDxCV14OLr2KJE5cUri UXgunX1upRMwN8k1SoBdEL36 oJ99SSzwGWRqWtU2LpSzpwox bWFy G9adNgDgeETzQrw+PHRhYmxl IHdpZHRoPScxMDAlJyBzdHls CJ1dVi9uGIXgQNUllTdirHFb OiBj c4thVEQoCBosXS3ncZpvQ5Ht fSI4OQLpi2c2Rv09sGD+PHRk MNK3lGylUKqea122VnYhg1vg IDM3 gZNtNKcwEIF2Z09yb9Q5MVJi YMZyEHV2vHL5uH9jsCcehedh R5JtxGUxApS8DNA6mDLinC7z bGln rpsiiH6lJui+F08IXT0SPQZL AO2TGip4B5FsBxcicOH+PC90 UEOtFY77yAJjpTAfa7svrJu6 JzEw MAQhFHR0xTytWDolg4VgSGRu Y65dwITzj5A4LEXbpJuroJUk RgWhiPB0rU5pGQiucazrb7zf dzsn Jhgmm9cpip57gZ93T91mCXlg LJPnJBG8HRSjQKLbaDtokn8h cH4hEl3+XNyqz8nlp0pxyTk8 IjIw EBYgcaEkwBymEMN2c7YnIz25 V2XxbHwbb7UqOrw6rl96mWLg p4O4qIT4ESquTOChjX2uVGbk ZnQ6 TTAiNyGveV22qVKgJDsoZs1h uUjzaUypIR6wVRNtntrpREEh lH4yBDAovMQtdAgaZJ7lGGFz bjtm c051OcPwUPI9IYSjeVSoO8Pb dS9aSxMhWBSgSRRdR2DbgAIr TAyuT374XDhpOsM6DQGxcuXv Y2Fs VFXslKmmGyQ2e9Z9Ue8Sk4Oh pndhMKA5MAawHBL7GvD3HoBc SaX5B7ZoTfp6WRWklMgqYY7c J3Bh BAAeridymxeutOM4JRBmKPDb nU50zLFzUBizZz3kg8M9j121 IIDjATTrlL16Oo4raSlvUNOb dCBU aJ2vuakex8kzclpbVyKnPGGb QXh8WTg5QIWzrUpxCmFhNDF8 OuQ0AIT5kTIbqC3hfPgzbhwh dG9w Oyc+U34nuN7oYOV3GUD0coza WYMcdsViMH22AD80P9CaIqsj dGFibGU+OVGeawYyfLpqRL3o YmFj j4fcv9UtKIbsY9WvLTArZVbu Tel2OHDdFCR9gRJ5dZ8aRTYq UAear9W4mIP6Q1WbvzZwdt7o b2xs GHOmMQdpP90omJEsh7M2AEXv lEK9QXGryLmlZtIavC08Vdf+ NJHjtUzmc6WiWnlep6bdu0wg dGg9 ByBnBMZwenBuaYhbAFW9l3Qc Hg23C70qKRysHYWuHMYtSIBz QEFodXaygf5ztT5rBz3+PGNv bCB3 qVN8uD4jFXFrXeB7OZslZ551 SwKjdSJkSuubi8ctv3jahPw7 HvUzRAMtyiZxjDblUSQ5x7Cp Lz48 Q66zXFpkVACoIWPvQKUwUDTb qUlomf5ubE6uBi2+XS5uc6ky ee97kE80qHD+VAFrQBJ3aJga PSdw YESifC5jIJzzSlW8PZViZxAv rM29mUEoPPaxWl0imYnkfJxz BL1yCUUztwofk211FcAad0ol IDEw yZNrLUftENQ5M63ks2P7XFNd EKZuPYW5mOP4nX9veDheflye bGVmdDsgdmVydGljYWwtYWxp Z246 IHRvcDsnPlBhdGllbnQgTmFt CAj4E2NmUgo0KUQzkChnWC0t oODcSSwuPl9ixNumtAoiCW8j NTBp cnwia588CjFic8nbMLRoyQIy XRvnOOD1I88ce9N8SMEjDZUm XZA8gAN4aO8jeUegxlzpuBMf dDsg vqKqmZflHDinOHhfE591CSHm zZepOpIvayXtVEHvaIY9VW20 WI27rFWxp3V6oUF2K4RoBEOf bmct cihwtNS4JKEiMKBrcZ18Gy7g rEdhHd4hOVRmINU1XZRxyUEh Q3FgcU7tIgWxZYYzXMAvD6Uq eHQt ZEerG365HNzmLkM4UNWhagWt S2SyVSEpvHxmBaX7r5O2Vt8Y U9N8KB33YW37rVHte4S1sPZ6 J3Bh MAQckqwngvxdaDQ0PHDqFKFl qA99Lj6xgUhuMi9jGPAdILC7 AVGguEKrO9XbtD6lWzCdRPXx MDAw S7AinTHhEFhxA305FZymXgS4 KWXogxIcQ3RtJBQjmVntFsF5 e6M0Xo3CKOi7EV22FC08sCLy c3R5 gMV0J1VwQOOzktvncxmgaGG2 ZQLcHPWhoD74Dd9mvIakCq1h CVOdZAN0ZYAgrAGgC7AkkI6j OiAj IAKiUDVfQ8FaeFAlRAwjK031 GVfuVmN5XFViopFdS3SoGBBb mWypKfD6u1W2Hh7RMYElIO78 IFR5 pVR5LP14QM71U3PqOpmrdLZz bGU+PHRhYmxlIHdpZHRoPScx MTEuIsLovXekGA2cBb6jVSJe LWNv uUvmpQBtIfIfv6stCKRsJUjw TZ4khKmsR5XkbGO0DQEsi4f1 Ke66B65qL0GhnRO+PGNvbCB3 aWR0 lP2oXcOkBpS7NNrzF674PyGo wADoHcxei8dtz4mwqBr4DoW0 GQJikoTqfRrvFXY2a4QbOs72 Y29s IHdpZHRoPSIxNSUiIHZhbGln kt2ypZ8bXu3+IDVqzOH8iEH6 xR7pTfQfMrQ6AQqsY986HyQg cCIv Vesml7gqa2ksqMu0QqHjKUIn bgJxiTtjJVH7m3UgUn44C6Rc rUjqf8FmShx1mb01rAVfq8P1 bGU9 S8IqWOHdgyaujPAgtPngZK7o TKKggbycZMVsmE1sQPIfW4l1 ZeZdTqI9NCgoG1NisjC3KWYv cHQg SPkdQSW8G93xk0P0BMLyKDNq IIK6xDC0mE6ulAyiugktqDCo xRyaneKfhMczTGvhYQqkZ965 IHRv dVllBRPbqE3wRHAayBUrtDaz RA4cMCHtpsxeGqEQUEUXWRWj DDKFVMFHDOaTMo71C5FjVeq5 ZCBz sVurAM6guJWrDBelBn9hwWun mBaeDC0hHBNpthvxAZEtzZ1r MYBfvDDfaTllHF2yUUCwqnby b250 BpPqDZG6QWKyuPZtA6MekA9f CpIwBPEuOVPdW3JjmBTsGPue O858UUeeJhX9TIQvbkVuW9Wc LWFs lXfqXvB5v7X8Fp6dWi9sUw7j AWp0BO83YT73mOOep0T0tSI4 M7KjEJGvhpdgzjqomCV3LRIs MDUw gO89gBAaXXdwMw9cb9A2r150 PPLjEPVucW83Em5slEvpOBSx zFNLkH6ghsutc9czxvthBuWh MDAw CFm0HLl2KVIgwHmeDdKnXYW4 QsC6TWK2rUZjgR7efSsndmkm vX9fKql+JpXsNIInptG7U1Eb Pjx0 JDYuyUyxFT2lgLGeECoiPb7p sYcnuQfqHY7bMMOcfzjwFRJb iZ3uUUXmrCAkjCgeCU3mIIAy bjtm h311RsNfZGD2FAYmhKCmR6Nk gD7aBmEtDNSdGJWiV7LliNMz XYrgV712JDdzAxX8OMRwesJo Y2Fs HKByhQtvVxQ1c0A0Wo1CAX9n vHS8S3OyYmh7WFMqlOjbTG3d hRPxYGhjXf9raEylqMrdZK8i NTBp lrzqSBLprC7zCCQaaIDlzZfk IY2vMBHlndbrc771BjKkYYQ2 CIWmlINcP2HyyC2dKdPtTSZm MDAw N1YqhUSvXDcxK853GNnvTpZ6 JUCsuhEzT4TlNJFshHqjKsT6 x9J3Cb9JHGPlIFJrzRToSsE3 L3Rk PjwvdHI+US84OPPiQV97bGKh pJLpn5tgaQa1UgXjMIOxRXI2 kIjaHWnao4RdECEcH47tuUIb c2U6 IWUvkJiczCFpUrFtdZD6uK8x YRvlihcij9yhffyiKaqrz0ei gx35mC64C86gKVvtDVFbYPQz MCUi DIGbmFqbfu3upA8yKg7+PGNv gMY1pLE1uL9zMtBvCsM5LDmb M935KzJqtTTvJavpv0myu6ec dGg9 QmDsEYJnfzBvzOxzLQD6l7Jx Zh85H96mNMbeKVEpQXJeFMGk TQLmsSagsr8fcY2vGr8+PC9j b2xn la49gL53oDC+UGOhHNC7dAwk XZtoMIJvhQ3cHQghJjI1ATOn CkCdnI09vEZaTUybOn5xlUdh dDog KD6dQCEemtopg721TjGtn7ng GYPtoBZpTPqsAEJ6I33uc4J0 RBEpDXHxEAE4dGY4dO3bdCbr bjog bGVmdDsgdmVydGljYWwtYWxp A630ZARraEvbDyXipEAlQ3xj piTBHC1yAjaveBW+PHRkIHN0 eWxl TSdqIPJewZ3wRHDsZ6m3XsQb XqZ9TVmnF1VtutK9SJAjqUMk YOXftQGAuI4aemuyf8dilbsv IzAw XBQxDDo7BHf1KJIfwBquFjEf RSP5GoS4ZCG6xEFowM1abDaw sbtakK8wZsc+RklOOjwvdGQ+ PHRk BFD0iHbmQLeoNKErdR0iUQMx D5g7IvLzKpO7ZTxtK2PoeuX6 JBPfhLBgPKUgiKMOuG4apuoj b2xv rdzpAvXpBKAkZFb4IRu5TGIl mYutWrDvOPC3ZeF0PIS7vSMt jV2ffQjbeanfiH8iRxn+TVJO Ojwv dGQ+OOUiCRI0rTiyLPcgPREb jU2aOEPkA0m4KmKaRaD1BAti X4BphqW9CBBugQYmKQZoaAMG aW1l xwwto3ngtazfRmXaLVCiDCy4 KNg6ZMTxkGemRlEmOQJ7GjW9 UHH5nJNxcF3cwTmdekwbfP8t Oyc+ GZC2KPF0LT98UG71D2NjYxir dGFibGU+PHRhYmxlIHdpZHRo LBcfDMLvLdPzlZduLB2wVf6s ZGVy LWNv (more content not included)... Normal [facility] COVID-19 ([facility])on 11-05-2020 SARS-CoV-2 (COVID-19) RNA REEMA+probe Ql (Unsp spec) Not detected Normal Not Detected [facility] Comment on above: Result Comment: This test result should be correlated with clinical presentations and medical history by a healthcare provider to determine its clinical significance. This assay was performed by a reverse transcriptase real-time polymerase chain reaction (rt PCR) method on the [employer] system. This test has been authorized only [...] or revoked sooner. Performed By: #### 2 [id number] #### [facility] [address] [place] [address] SARS-CoV-2 (COVID-19) RNA REEMA+probe Ql (Unsp spec) Pass Normal Pass [facility] Comment on above: Performed By: #### 2 [id number] #### [facility] [address] [place] [address] Specimen source Nom (Unsp spec) Nasal Normal [facility] Comment on above: Performed By: #### 2 [id number] #### [facility] [address] [place] [address] Consent for Treatmenton 090 Consent for Treatment [id number]: 127 Normal [facility] COVID-19 ([facility])on 11-02-2020 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 NO Normal [facility] Comment on above: Performed By: #### 2 [id number] #### [facility] [address] [place] [address] ICU NO Normal [facility] Comment on above: Performed By: #### 2 [id number] #### [facility] [address] [place] [address] ? Unknown Normal [facility] Comment on above: Performed By: #### 2 [id number] #### [facility] [address] [place] [address] Resides in a Congregate Care Setting Unknown Normal [facility] Comment on above: Performed By: #### 2 [id number] #### [facility] [address] [place] [address] Symptomatic as defined by CDC YES Normal [facility] Comment on above: Performed By: #### 2 [id number] #### [facility] [address] [place] [address] Physician Orderon 08-27-2020 Physician Order [id number]: 127 Normal [facility] URon 03-22-2020 , QUAL Negative Normal NEGATIVE [facility] Comment on above: Performed By: #### P REGU #### [facility] [address], [place] [address] Juany Mccarthy Covid-19 PCR (CVDTB)on 02-02 Covid-19 PCR DETECTED Abnormal NOT DETECTED [facility] Comment on above: Result Comment: This test is not yet approved or cleared by the [place] FDA. When there are no FDA-approved or cleared tests available, and other criteria are met, FDA can make tests available under an emergency access mechanism called an Emergency Use Authorization (EUA). The EUA for this test is supported by the [employer] of Health and Human Service's (HHS's) declaration [...] used). Performed By: #### C VDTBH #### [facility] [address] [place], [place] [address] Juany Mccarthy EUA Statement SEE BELOW Normal [facility] Comment on above: Result Comment: This test is not yet approved or cleared by the [place] FDA. When there are no FDA-approved or cleared tests available, and other criteria are met, FDA can make tests available under an emergency access mechanism called an Emergency Use Authorization (EUA). The EUA for this test is supported by the [employer] of Health and Human Service?s (HHS?s) declaration [...] SARS-CoV-2. Performed By: #### C VDTB #### [facility] [address] [place] [id number] Juany Mccarthy Vital Signs Date Time Vital Sign Value Performing Clinician Facility 10-15-2023 10:05-0400 Blood Pressure Location [email or web address] [facility] 10-15-2023 10:05-0400 Diastolic blood pressure 74 mm[Hg] [email or web address] [facility] 10-15-2023 10:05-0400 Heart rate 66 /min [email or web address] [facility] 10-15-2023 10:05-0400 Mean blood pressure 87 mm[Hg] [email or web address] [facility] 08-12-2024 10:05-0400 Respiratory rate 19 /min Mohamad Mouchli [facility] 10-15-2023 10:05-0400 SaO2% (BldA) [Mass fraction] 97 % Mohamad Mouchli [facility] 10-15-2023 10:05-0400 Systolic blood pressure 112 mm[Hg] Mohamad Mouchli [facility] 10-15-2023 09:55-0400 Blood Pressure Location Mohamad Mouchli [facility] 10-15-2023 09:55-0400 Diastolic blood pressure 57 mm[Hg] Mohamad Mouchli [facility] 10-15-2023 09:55-0400 Heart rate 57 /min Mohamad Mouchli [facility] 10-15-2023 09:55-0400 Mean blood pressure 71 mm[Hg] Mohamad Mouchli [facility] 10-15-2023 09:55-0400 Respiratory rate 19 /min Mohamad Mouchli [facility] 10-15-2023 09:55-0400 SaO2% (BldA) [Mass fraction] 100 % Mohamad Mouchli [facility] 10-15-2023 09:55-0400 Systolic blood pressure 100 mm[Hg] Mohamad Mouchli [facility] 10-15-2023 09:50-0400 Blood Pressure Location Mohamad Mouchli [facility] 10-15-2023 09:50-0400 Diastolic blood pressure 73 mm[Hg] Mohamad Mouchli [facility] 10-15-2023 09:50-0400 Heart rate 90 /min Mohamad Mouchli [facility] 10-15-2023 09:50-0400 Mean blood pressure 89 mm[Hg] Mohamad Mouchli [facility] 10-15-2023 09:50-0400 Respiratory rate 13 /min Mohamad Mouchli [facility] 10-15-2023 09:50-0400 SaO2% (BldA) [Mass fraction] 100 % Mohamad Mouchli [facility] 10-15-2023 09:50-0400 Systolic blood pressure 122 mm[Hg] Mohamad Mouchli [facility] 10-15-2023 09:41-0400 Body temperature 98.06 [degF] Mohamad Mouchli [facility] 10-15-2023 09:30-0400 Respiratory rate 10 /min Mohamad Mouchli [facility] 10-15-2023 09:25-0400 Respiratory rate 10 /min Mohamad Mouchli [facility] 10-15-2023 09:24-0400 Respiratory rate 10 /min Mohamad Mouchli [facility] 10-15-2023 07:13-0400 Body temperature 98.42 [degF] Mohamad Mouchli [facility] 09-13-2023 14:52-0400 Blood Pressure Location Mohamad Mouchli [facility] 09-13-2023 14:52-0400 Diastolic blood pressure 82 mm[Hg] Mohamad Mouchli [facility] 09-13-2023 14:52-0400 Heart rate 78 /min Alex Knutson [facility] 09-13-2023 14:52-0400 Respiratory rate 16 /min Mohamad Mouchli [facility] 09-13-2023 14:52-0400 Systolic blood pressure 110 mm[Hg] Jeromed Clifforduchli [facility] 07-20-2023 18:58-0400 Body temperature 98.49 [degF] Gwen Danielson MD Work Phone: [facility] 07-20-2023 18:58-0400 Diastolic blood pressure 83 mm[Hg] Gwen Danielson MD Work Phone: [facility] 07-20-2023 18:58-0400 Heart rate 52 /min Gwen Danielson MD Work Phone: [facility] 07-20-2023 18:58-0400 Respiratory rate 18 /min Gwen Danielson MD Work Phone: [facility] 07-20-2023 18:58-0400 SaO2% (BldA) [Mass fraction] 98 % Gwen Danielson MD Work Phone: [facility] 07-20-2023 18:58-0400 Systolic blood pressure 135 mm[Hg] Gwen Danielson MD Work Phone: [facility] 07-20-2023 13:40-0400 Body height 167.6 cm Gwen Danielson MD Work Phone: [facility] 07-20-2023 13:40-0400 Body mass index (BMI) [Ratio] 19.05 kg/m2 Gwen Danielson MD Work Phone: [facility] 07-20-2023 13:40-0400 Body weight 53.52 kg Gwen Danielson MD Work Phone: [facility] Encounters Encounter Date Encounter Type Care Provider Facility Start: 10-15-2023 End: 10-15-2023 ambulatory Alex KarlieTyrone Cliffordhelena Facility:[facility] Start: 10-15-2023 End: 10-15-2023 Patient encounter procedure Alex KarlieTyrone Cliffordhelena [facility] Start: 09-13-2023 End: 09-13-2023 ambulatory Alex Knutson Facility:[facility] Start: 09-13-2023 End: 09-13-2023 Patient encounter procedure Alex Knutson [facility] Start: 2023 ambulatory Alex Knutson Facilit y:[facility] Start: 08-23-2023 End: 08-23-2023 ambulatory CAROLYNE EDMONDS Not Available Start: 08-14-2023 Telephone encounter Karina Hand MD Work Phone: Endocrinology Comment on above: Results Start: 07-26-2023 End: 07-26-2023 ambulatory CAROLYNE EDMONDS Not Available Start: 07-20-2023 End: 07-20-2023 Emergency department patient visit Gwen Danielson MD Work Phone: [facility] Comment on above: Nausea and vomiting, unspecified vomiting type (Primary Dx); Gastritis, presence of bleeding unspecified, unspecified chronicity, unspecified gastritis type Start: 06-13-2023 End: 06-13-2023 [facility] Karina Cummings MD Work Phone: Endocrinology Comment on above: Prolactinoma (HCC) ( Primary Dx); 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HCC); Elevated prolactin level Start: 05-24-2023 End: 05-24-2023 ambulatory CAROLYNE EDMONDS Not Available Start: 03-19-2023 End: 03-19-2023 ambulatory URIEL MEADE Not Available Start: 02-22-2023 End: 02-22-2023 ambulatory CAROLYNE EDMONDS Not Available Start: 03-22-2020 End: 03-22-2020 Patient encounter procedure YASMIN MARTINEZ Facility:[facility] Start: 03-03-2020 Encounter for preprocedural laboratory examination YASMIN MARTINEZ [facility] Start: 02-25-2020 Encounter for other preprocedural examination YASMIN MARTINEZ [facility] Start: 02-23-2020 End: 02-23-2020 Patient encounter procedure YASMIN MARTINEZ Facility:[facility] Start: 02-20-2020 End: 02-20-2020 Patient encounter procedure YASMIN MARTINEZ Facility:[facility] Start: 02-16-2020 End: 02-17-2020 Patient encounter procedure YASMIN MARTINEZ Facility:[facility] Encounter for other preprocedural examination YASMIN MARTINEZ [facility] Encounter for preprocedural laboratory examination YASMIN MARTINEZ [facility] Procedures Date Procedure Procedure Detail Performing Clinician Start: 10-15-2023 Colonoscopy Alex Knutson Start: 10-15-2023 Esophagogastroduodenoscopy Alex rich Start: 07-20-2023 CT CHEST ABDOMEN PELVIS W IV CONTRAST GWEN LOWE Start: 07-20-2023 Lactate [Moles/volume] in Serum or Plasma GWEN LOWE Start: 07-20-2023 XR CHEST 1 VIEW GWEN LOWE Start: 07-20-2023 DRUG SCREEN,URINE GWEN LOWE Start: 07-20-2023 EXTRA URINE DORAN TUBE GWEN LOWE Start: 07-20-2023 URINALYSIS MICROSCOPIC WITH REFLEX CULTURE GWEN LOWE Start: 07-20-2023 URINALYSIS WITH REFLEX CULTURE AND MICROSCOPIC GWEN LOWE Start: 07-20-2023 Ct thorax w/contrast material Abiodun R Dhruv sarabia PA-C Work Phone: Start: 07-20-2023 CBC W Auto Differential panel - Blood GWEN LOWE Start: 07-20-2023 Comprehensive metabolic 2000 panel - Serum or Plasma GWEN LOWE Start: 07-20-2023 HUMAN CHORIONIC GONADOTROPIN, SERUM QUANTITATIVE GWEN LOWE Start: 07-20-2023 Lactate [Moles/volume] in Serum or [facility] Start: 07-20-2023 Lipase [Enzymatic activity/volume] in Serum or Plasma GWEN LOWMichael Start: 07-20-2023 TROPONIN I, HIGH SENSITIVITY [facility] Start: 07-20-2023 ECG 12-LEAD GWEN DANIELSON Start: 07-20-2023 INSERT PERIPHERAL IV GWEN DANIELSON Start: 07-20-2023 Assay of lactate Abiodun Ochoa PA-C Work Phone: Start: 07-20-2023 Radiologic exam chest single view Abiodun CONDONC Work Phone: Start: 07-20-2023 Drug tst prsmv instrmnt chem analyzers pr date Abiodun Ochoa PA-C Work Phone: Start: 07-20-2023 Urinalysis complete W Reflex Culture panel - Urine Abiodun CONDONC Work Phone: Start: 07-20-2023 Urnls dip stick/tablet reagent auto microscopy Abiodun CONDONC Work Phone: Start: 07-20-2023 Comprehensive metabolic panel Abiodun GOMEZ-C Work Phone: Start: 07-20-2023 Ecg routine ecg w/least 12 lds trcg only w/o i&r Abiodun CONDONC Work Phone: Plan of Treatment Date Care Activity Detail Author Start: 2044 Zoster Vaccines (1 of 2) Zoste r Vaccines (1 of 2) [facility] Start: 11-04-2023 Influenza vaccination Influenz a Vaccine (Season Ended) [facility] Start: 07-11-2023 End: 10-10-2023 Corticotropin [Mass/volume] in Plasma ACTH BLD Lab Routine 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HCC) Expected: 07/11/2023, Expires: 10/10/2023 [facility] Comment on above: Expected: 07/11/2023 , Expires: 10/10/2023 Start: 07-11-2023 End: 10-10-2023 Cortisol [Mass/volume] in Serum or Plasma CORTISOL, SERUM Lab Routine 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HCC) Expected: 07/11/2023, Expires: 10/10/2023 [facility] Comment on above: Expected: 07/11/2023 , Expires: 10/10/2023 Start: 07-11-2023 End: 10-10-2023 Estradiol (E2) [Mass/volume] in Serum or Plasma ESTRADIOL-17B BLD Lab Routine 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[facility]) Expected: 07/11/2023, Expires: 10/10/2023 [facility] Comment on above: Expected: 07/11/2023 , Expires: 10/10/2023 Start: 07-11-2023 End: 10-10-2023 Follitropin [Units/volume] in Serum or Plasma FOLLICLE STIMULATING HORMONE Lab Routine 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[facility]) Expected: 07/11/2023, Expires: 10/10/2023 [facility] Comment on above: Expected: 07/11/2023 , Expires: 10/10/2023 Start: 07-11-2023 End: 10-10-2023 INSULIN LIK GR FAC I INSULIN LIK GR FAC I Lab Routine 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[facility]) Expected: 07/11/2023, Expires: 10/10/2023 [facility] Comment on above: Expected: 07/11/2023 , Expires: 10/10/2023 Start: 07-11-2023 End: 10-10-2023 Lutropin [Units/volume] in Serum or Plasma LUTEINIZING HORMONE Lab Routine 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[facility]) Expected: 07/11/2023, Expires: 10/10/2023 [facility] Comment on above: Expected: 07/11/2023 , Expires: 10/10/2023 Start: 07-11-2023 End: 08-09-2024 MR Pituitary and Sella turcica WO and W contrast IV MRI PITUITARY WO/W IVCON Radiology Routine 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[facility]) Expected: 07/11/2023, Expires: 08/09/2024 [facility] Work Phone: Comment on above: Expected: 07/11/2023 , Expires: 08/09/2024 Start: 07-11-2023 End: 10-10-2023 Prolactin [Mass/volume] in Serum or Plasma PROLACTIN Lab Routine 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[facility]) Expected: 07/11/2023, Expires: 10/10/2023 [facility] Comment on above: Expected: 07/11/2023 , Expires: 10/10/2023 Start: 07-11-2023 End: 10-10-2023 Somatostatin [Mass/volume] in Plasma GROWTH HORMONE Lab Routine 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HCC) Expected: 07/11/2023, Expires: 10/10/2023 [facility] Comment on above: Expected: 07/11/2023 , Expires: 10/10/2023 Start: 07-11-2023 End: 10-10-2023 Thyrotropin [Units/volume] in Serum or Plasma THYROID STIMULATING HORMONE Lab Routine 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HCC) Expected: 07/11/2023, Expires: 10/10/2023 [facility] Comment on above: Expected: 07/11/2023 , Expires: 10/10/2023 Start: 07-11-2023 End: 10-10-2023 Thyroxine (T4) free [Mass/volume] in Serum or Plasma T4 FREE/FREE THYROXINE Lab Routine 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HCC) Expected: 07/11/2023, Expires: 10/10/2023 [facility] Comment on above: Expected: 07/11/2023 , Expires: 10/10/2023 Start: 03-05-2023 Behavioral Health Screening Behavioral Health Screening [facility] Start: 11-03-2022 Covid-19 Vaccine ( season) Covid-19 Vaccine ( season) [facility] Start: 05-29-2018 DTaP/Tdap/Td Vaccine s (3 - Td or Tdap) DTaP/Tdap/Td Vaccines (3 - Td or Tdap) [facility] Start: 05-29-2018 Urine microalbumin profile DTaP,Tdap,Td Vaccine (3 - Td or Tdap) [facility] Start: 08-30-2015 Screening for malign ant neoplasm of cervix [facility] Start: 07-13-2014 Hepatitis B Vaccine (3 of 3 - 19+ 3-dose series) Hepatitis B Vaccine (3 of 3 - 19+ 3-dose series) [facility] Start: 07-13-2014 Hepatitis B Vaccines (3 of 3 - 19+ 3-dose series) Hepatitis B Vaccines (3 of 3 - 19+ 3-dose series) [facility] Start: 05-12-2014 Hepatitis A Vaccines (2 of 2 - 2-dose series) Hepatitis A Vaccines (2 of 2 - 2-dose series) [facility] Start: 2012 Hepatitis C screening Hepatitis C Sc reenicolasa [facility] Start: 2012 HIV screening HIV Screening [facility] Start: 05-18-2010 Varicella vaccination Varicell a Vaccines (2 of 2 - 13+ 2-dose series) [facility] Start: 2000 Pneumococcal Vaccine : Pediatrics (0 to 5 Years) and At-Risk Patients (6 to 64 Years) (1 of 2 - PCV) Pneumococcal Vaccine: Pediatrics (0 to 5 Years) and At-Risk Patients (6 to 64 Years) (1 of 2 - PCV) [facility] Start: 07-06-1999 IPV Vaccines (2 of 3 - 4-dose series) IPV Vaccines (2 of 3 - 4-dose series) [facility] Start: 1994 HIV screening HIV Screening [facility] Start: 1994 Lip[address] Lipid Panel [facility] Start: 1994 Yearly Adult Physical Yearly Adult P hysical [facility] ECG 12 lead ECG 12 lead ECG STAT 07/20/2023 2:[address] [facility] Work Phone: End: 07-20-2023 Extra Urine Doran Tube [facility] Work Phone: Comment on above: Once for 1 Occurrenc es starting 07/20/2023 until 07/20/2023 End: 07-20-2023 Urinalysis complete W Reflex Culture panel - Urine [facility] Work Phone: Comment on above: Once (Lab) for 1 Occ urrences starting 07/20/2023 until 07/20/2023 Immunizations Immunization Date Immunization Notes Care Provider Felicitas chase 12-06-2015 influenza virus vaccine, unspecified formulation Karina Cummings MD Work Phone: [facility] 05-18-2014 hepatitis B vaccine, adult dosage Mohamad Mouchli [facility] 03-30-2014 hepatitis B vaccine, adult dosage Mohamad Mouchli [facility] 11-12-2013 hepatitis A vaccine, unspecified formulation Mohamad Mouchli [facility] 11-12-2013 hepatitis B vaccine, pediatric or pediatric/adolescent dosage Mohamad Mouchli [facility] 11-12-2013 hepatitis A and hepatitis B vaccine Gwen Danielson MD Work Phone: [facility] Work Phone: 12-31-2012 influenza, whole Alex Hortonu stevan [facility] 04-20-2010 hepatitis A vaccine, unspecified formulation Mohamad Mouchli [facility] 04-20-2010 varicella virus vaccine Jeovanny Danielson MD Work Phone: [facility] 05-29-2008 meningococcal ACWY vaccine, unspecified formulation Mohamad Mouchli [facility] 05-29-2008 tetanus toxoid, redu bridget diphtheria toxoid, and acellular pertussis vaccine, adsorbed Mohamad Mouchli [facility] 12-13-2006 HPV, unspecified formulation Mohamad Mouchli [facility] 08-13-2006 HPV, unspecified formulation Mohamad Mouchli [facility] 06-13-2006 HPV, unspecified formulation Mohamad Mouchli [facility] 06-08-1999 DTaP, unspecified formulation Mohamad Mouchli [facility] 06-08-1999 measles, mumps and rubella virus vaccine Alex Knutson [facility] 06-08-1999 poliovirus vaccine, unspecified formulation Gwen Danielson MD Work Phone: [facility] Payers Date Payer Category Payer Unknown [id number] 2019 Unknown [id number] 1994 Unknown [id number] 2.16.84 [id number] 1994 Unknown [id number] 2.16.84 [id number] 1994 Unknown [id number] 2.16.84 [id number] 1994 Unknown [id number] 2.16.84 [id number] 1994 Unknown [id number] 2.16.84 [id number] 1994 Unknown [id number] 2.16.84 [id number] 1994 Unknown [id number] 2.16.84 [id number] 1994 Unknown [id number] 2.16.84 [id number] 1994 Unknown [id number] [id number] .[id number] 1994 Unknown [id number] 2.16.8 [id number] 1994 Unknown [id number] 2.16.8 [id number] 1994 Unknown [id number] 2.16.8 [id number] 1994 Unknown [id number] 2.16.8 [id number] 1959 Unknown [id number] 1959 Unknown [id number] 1959 Unknown [id number] Social History Date Type Detail [facility] Start: 06-13-2023 History of Social function [facility] Start: 06-13-2023 Area Deprivation Index [facility] National Score (1-10 0), lower number is lower risk 85 [facility] Start: 1995 Sex Assigned At Not on file [facility] Start: 07-10-2023 End: 07-20-2023 Exposure to SARS-CoV-2 (event) Not sure [facility] Work Phone: Start: 09-13-2023 Tobacco smoking status Never s moked tobacco (finding) [facility] Functional Status Date Assessment Result Facility 10-15-2023 Functional Status N/A [facility] 09-13-2023 Functional Status N/A [facility] Clinical Notes 01-20-2021 to 10-15-2023 Note Date & Type Note Facility 10-15-2023 Evaluation + Plan note Extrac latisha from: Title:ANES Post General Author:Gus Moreno DO Date:10/15/23 Plan Transfer/Discharge: Patient exhibiting no signs of N/V. Hydration status is adequate. Extracted from: Title:Josh Basic PRE Author:Kenan Moreno DO Date:10/15/23 Plan [place] [employer] (ASA) physical status classification: Class II. Anesthetic Preoperative Plan: Anesthesia General. [facility] 08-12-2024 Hospital Discharge instructions Patient Education 10/15/2023 09:50:27 Colonoscopy, Care After Surgery Salam (CUSTOM) Colonoscopy Care After Surgery Please read the instructions outlined below and refer to this sheet in the next few weeks. These discharge instructions provide you with general information on caring [facility] Your doctor may also give you specific instructions. While your treatment has been planned according to the most current medical practices available, unavoidable complications occasionally occur. If you have any problems or questions after discharge, please call your doctor. ACTIVITY You may resume your regular activity, but move at a slower pace for the next 24 hours. Take frequent rest periods for the next 24 hours. Walking will help get rid of the air and reduce the bloated feeling in your abdomen (belly). No driving for 24 hours (because of the anesthesia (medicine) used during the test). You may shower. Do not sign any important legal documents or operate any machinery for 24 hours (because of the anesthesia used during the test). NUTRITION Drink plenty of fluids. You may resume your normal diet as instructed by your doctor. Begin with a light meal and progress to your normal diet. Heavy or fried foods are harder to digestand may make you feel nauseated (sick to your stomach). Avoid alcoholic beverages for 24 hours or as instructed. MEDICATIONS You may resume your normal medications unless your doctor tells you otherwise. WHAT YOU CAN EXPECT TODAY Some feelings of bloating in the abdomen. Passage of more gas than usual. Spotting of blood in your stool or on the toilet paper. FOLLOW-UP Your doctor will discuss the results of your test with you. SEEK IMMEDIATE MEDICAL ATTENTION IF: There is more than a spotting of blood in your stool. There is abdominal distention (your abdomen is swollen). There is vomiting. You have a temperature over 101.5 F. There is abdominal pain or discomfort that is severe or gets worse throughout the day. 10/15/2023 09:50:26 Endoscopy, Care After Procedure [facility] ([facility]) Endoscopy Care After Procedure Please read the instructions outlined below and refer to this sheet in the next few weeks. These discharge instructions provide you with general information on caring for yourself after you leave [facility]. Your doctor may also give you specific instructions. While your treatment has been planned according to the most current medical practices available, unavoidable complications occasionally occur. If you have any problems or questions after discharge, please call your doctor. ACTIVITY You may resume your regular activity but move at a slower pace for the next 24 hours. Take frequent rest periods for the next 24 hours. Walking will help expel (get rid of) the air and reduce the bloated feeling in your abdomen. No driving for 24 hours (because of the anesthesia (medicine) used during the test). You may shower. Do not sign any important legal documents or operate any machinery for 24 hours (because of the anesthesia used during the test). NUTRITION Drink plenty of fluids. You may resume your normal diet. Begin with a light meal and progress to your normal diet. Avoid alcoholic beverages for 24 hours or as instructed by your caregiver. MEDICATIONS You may resume your normal medications unless your caregiver tells you otherwise. WHAT YOU CAN EXPECT TODAY You may experience abdominal discomfort such as a feeling of fullness or gas pains. FOLLOW-UP Your doctor will discuss the results of your test with you. SEEK IMMEDIATE MEDICAL ATTENTION IF ANY OF THE FOLLOWING OCCUR: Excessive nausea (feeling sick to your stomach) and/or vomiting. Severe abdominal pain and distention (swelling). Trouble swallowing. Temperature over 100 F (37.8 C). Rectal bleeding or vomiting of blood. Document Released: 10/03/2004 Document Re-Released: 08/13/2006 ExitCare Patient Information 2009 [employer]. Follow Up Care 09/13/2023 15:40:21 With:Alex Knutson Address: [address] [place] [address], [address] [address]- [phone] Business (1) When:1 to 2 weeks Comments:Call for any problems. [facility] 08-12-2024 NoteProgress Note-Physician Patient: INDU ST Age: 28 years Sex: Female : 1995 Associated Diagnoses: None Author: Lenny Moreno DO Postoperative Information Postoperative disposition: Postoperative disposition: To PACU. Anesthetic utilized: General. Health Status Allergies: Allergic Reactions (Selected) No Known Medication Allergies Current medications: (Selected) Inpatient Medications Ordered Lactated Ringers IV Susie 1000 mL 1,000 mL: 1,000 mL, IV, 100 mL/hr, Routine, Start date 10/15/23 7:22:00 EDT, 10 hour(s), Total volume (mL): 1,000, 48.9 kg, 1.51, m2 Sodium Chloride 0.9% IV Susie 1000 mL 1,000 mL: 1,000 mL, IV, 20 mL/hr, Routine, Start date 10/15/23 6:38:00 EDT, 50 hour(s), Total volume (mL): 1,000 Prescriptions Prescribed Miralax 3350 17 gram packet: 17 gm, Oral, Daily, # 527 gm, Refills(s) 5, Pharmacy: [id number], 167, cm, 09/13/23 14:57:00 EDT, Height/Length Dosing, 48.9, kg, 09/13/23 14:57:00 EDT, Weight Dosing Pantoprazole [address] Tab: 40 mg = 1 tab(s), Oral, Daily, # 30 tab(s), Refills(s) 4, Pharmacy: [facility] #[id number], 167, cm, 09/13/23 14:57:00 EDT, Height/Length Dosing, 48.9, kg, 09/13/23 14:57:00 EDT, Weight Dosing Documented Medications Documented Advair HFA 115 mcg-21 mcg/inh inhalation aerosol with adapter: 2 puff(s), Inhalation, BID Shortnessof breath or wheezing, Refill(s) [address] Tab: 30 EA, 0 Refill(s), Refills(s) 0 Ritalin 20 mg oral tablet: 40 EA, 0 Refill(s), TAKE 1 TABLET BY MOUTH EVERY MORNING AND 1 TABLET EVERY NIGHT AT BEDTIME, Refills(s) 0 Xanax 0.5 mg Tab: 0.5 mg = 1 tab(s), Oral, TID, PRN for anxiety, Refills(s) 0 cyclophosphamide 50 mg oral capsule: Refills(s) 0, Other (see comment) lamotrigine 25 mg Tab: 42 EA, 0 Refill(s), TAKE 1 TABLET BY MOUTH DAILY FOR 14 DAYS THEN TAKE 1 TABLET BY MOUTH TWICE DAILY, Refills(s) 0, Home Medications (8) Active Advair HFA 115 mcg-21 mcg/inh inhalation aerosol with adapter 2 puff(s), PRN, Inhalation, BID cyclophosphamide 50 mg oral capsule lamotrigine 25 mg Tab Miralax 3350 17 gram packet 17 gm, Oral, Daily Pantoprazole [address] Tab Pantoprazole [address] Tab 40 mg = 1 tab(s), Oral, Daily Ritalin 20 mg oral tablet Xanax 0.5 mg Tab 0.5 mg = 1 tab(s), PRN, Oral, TID Problem list: All Problems Abnormal CT of the abdomen / SNOMED CT 9783334938 / Confirmed Abnormal uterine bleeding. / SNOMED CT 8952738946 / Confirmed Amenorrhea / SNOMED CT 14950076 / Confirmed Anemia / SNOMED CT 730903583 / Confirmed Anxiety / SNOMED CT 40869847 / Confirmed Asthma / SNOMED CT 217220591 / Confirmed Attention deficit hyperactivity disorder / SNOMED CT 5138928325 / Confirmed Benign neoplasm of pituitary gland / SNOMED CT 293558673 / Confirmed Bilateral arthritis of sacroiliac joint / SNOMED CT 2476045861 / Confirmed Bipolar disorder / SNOMED CT 50974986 / Confirmed Chronic rhinitis / SNOMED CT 883175313 / Confirmed Chronic vaginitis / SNOMED CT 72614799 / Confirmed Depressive disorder / SNOMED CT 44966160 / Confirmed Disorder of pituitary gland / SNOMED CT 7155337607 / Confirmed Endometriosis (clinical) / SNOMED CT 896510842 / Confirmed Esophagitis / SNOMED CT 92920205 / Confirmed Fatigue / SNOMED CT 297776852 / Confirmed Gastritis / SNOMED CT 5878034 / Confirmed Heartburn / SNOMED CT 58068181 / Confirmed History of laparoscopy / SNOMED CT 1741149599 / Confirmed Malignant tumor of cervix / SNOMED CT 239794871 / Confirmed Miscarriage / SNOMED CT 97374143 / Confirmed Nausea and vomiting / SNOMED CT 18912095 / Confirmed Pain in pelvis / SNOMED CT 030083961 / Confirmed Prolactin level above reference range / SNOMED CT 4018905606 / Confirmed Prolactinoma / SNOMED CT 375423253 / Confirmed Sciatica / SNOMED CT 51830875 / Confirmed Seasonal allergic rhinitis / SNOMED CT 828153708 / Confirmed Stress-related physiological response affecting medical condition / SNOMED CT 55399324 / Confirmed 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 Weight loss / SNOMED CT 701332339 / Confirmed Physical Examination Vital Signs 10/15/2023 9:55 EDT Heart Rate Monitored 57 bpm LOW Respiratory Rate Monitored 19 br/min Systolic Blood Pressure 100 mmHg Diastolic Blood Pressure 57 mmHg LOW Blood Pressure Location Left arm Mean Arterial Pressure, Cuff 71 mmHg SpO2 100 % 10/15/2023 9:50 EDT Heart Rate Monitored 90 bpm Respiratory Rate Monitored 13 br/min Systolic Blood Pressure 122 mmHg Diastolic Blood Pressure 73 mmHg Blood Pressure Location Left arm Mean Arterial Pressure, Cuff 89 mmHg SpO2 100 % 10/15/2023 9:45 EDT Heart Rate Monitored 59 bpm LOW Respiratory Rate Monitored 20 br/min Systolic Blood Pressure 112 mmHg Diastolic Blood Pressure 74 mmHg Blood Pressure Location Left arm Mean Arterial Pressure, Cuff 87 mmHg SpO2 100 % 10/15/2023 9:41 EDT Temperature Temporal Artery 36.7 DegC Heart Rate (more content not included)...[facility]:Result Comment: Electronically Signed By: Lenny Moreno DO\.br\Date and Time Signed: 10/15/23 10:06 [id number] NoteColonoscopy Procedure Report Patient: INDU ST Age: 28 years Sex: Female : 1995 Associated Diagnoses: None Author: Alex Knutson MD Pre-Procedure Procedure Date 10/15/2023 09:53:00 . Procedure Type: Colonoscopy. Procedure provider Performed by Alex Knutson MD. Current history and physical Documented on chart. No active procedure history items have been selected or recorded.. Past Medical History No active or resolved past medical history items have been selected or recorded.. Family History Hypothyroidism Mother Primary malignant neoplasm of lung Mother Father Arthritis Father . Procedure History No active procedure history items have been selected or recorded.. Colorectal neoplasm risk assessment Average risk. Informed Consent After discussing the rationale, risks and benefits, and alternatives to this procedure, the patient provided signed consent for the procedure. Pre-procedure diagnosis: Diagnostic: Abdominal pain and weight loss. Medications (Selected) Inpatient Medications Ordered Lactated Ringers IV Susie 1000 mL 1,000 mL: 1,000 mL, IV, 100 mL/hr, Routine, Start date 10/15/23 7:22:00 EDT, 10 hour(s), Total volume (mL): 1,000, 48.9 kg, 1.51, m2 Sodium Chloride 0.9% IV Susie 1000 mL 1,000 mL: 1,000 mL, IV, 20 mL/hr, Routine, Start date 10/15/23 6:38:00 EDT, 50 hour(s), Total volume (mL): 1,000 Prescriptions Prescribed Miralax 3350 17 gram packet: 17 gm, Oral, Daily, # 527 gm, Refills(s) 5, Pharmacy: [facility] #[id number], 167, cm, 09/13/23 14:57:00 EDT, Height/Length Dosing, 48.9, kg, 09/13/23 14:57:00 EDT, Weight Dosing Pantoprazole [address] Tab: 40 mg = 1 tab(s), Oral, Daily, # 30 tab(s), Refills(s) 4, Pharmacy: [facility] #[id number], 167, cm, 09/13/23 14:57:00 EDT, Height/Length Dosing, 48.9, kg, 09/13/23 14:57:00 EDT, Weight Dosing Documented Medications Documented Advair HFA 115 mcg-21 mcg/inh inhalation aerosol with adapter: 2 puff(s), Inhalation, BID Shortnessof breath or wheezing, Refill(s) [address] Tab: 30 EA, 0 Refill(s), Refills(s) 0 Ritalin 20 mg oral tablet: 40 EA, 0 Refill(s), TAKE 1 TABLET BY MOUTH EVERY MORNING AND 1 TABLET EVERY NIGHT AT BEDTIME, Refills(s) 0 Xanax 0.5 mg Tab: 0.5 mg = 1 tab(s), Oral, TID, PRN for anxiety, Refills(s) 0 cyclophosphamide 50 mg oral capsule: Refills(s) 0, Other (see comment) lamotrigine 25 mg Tab: 42 EA, 0 Refill(s), TAKE 1 TABLET BY MOUTH DAILY FOR 14 DAYS THEN TAKE 1 TABLET BY MOUTH TWICE DAILY, Refills(s) 0 ASA Classification: Class II. . Monitoring: See anesthesia record. . Procedure The procedure was performed in the hospital. See anesthesia record for sedation given during procedure. The patient was positioned starting in the left lateral decubitus position. Endoscope type usedwas a pediatric-size. The endoscope was lubricated then introduced through the anus. The scope was advanced to the terminal ileum. No difficulties encountered during the procedure. The bowel preparation quality was good and was adequate (see polyps greater than or equal to 6 millimeters). The patient tolerated the procedure well. Time to Cecum: 1 min Withdrawal time: 9 min Findings 1. Small internal hemorrhoids 2. Normal colon 3. Normal terminal ileum Images Procedure images: [id number].jpg [id number].jpg [id number].jpg [id number].jpg [id number].jpg [id number].jpg [id number].jpg . Post-Procedure Complications: none. Estimated blood loss: none. Specimens: none. Devices/ implants: none left in place. Impression and Plan internal hemorrhoids Otherwise, normal colon Recommendations: Repeat colonoscopy:: At the age of 44 . Follow-up:: in clinic as scheduled. Diet:: Previous. Medication resumption:: Continue current medications, Avoid NSAIDs. Return to activities:: After 24 hours. Education and Follow-up: Counseled: Patient, Family.[facility] Comment on above:Other Comment: Missing Attachment - attachment storage system not supported [id number] Can be viewed in source system Missing Attachment - attachment storage system not supported [id number] Can be viewed in source systemMissing Attachment - attachment storage system not supported [id number] Can be viewed in source systemMissing Attachment - attachment storage system not supported [id number] Can be viewed in source systemMissing Attachment - attachment storage system not supported [id number] Can be viewed in source systemMissing Attachment - attachment storage system not supported [id number] Can be viewed in source systemMissing Attachment - attachment storage system not supported [id number] Can be viewed in source [id number] Note Patient Education - Text Colonoscopy Care After Surgery Please read the instructions outlined below and refer to this sheet in the next few weeks. These discharge instructions provide you with general information on caring for yourself after you leave thehospital. Your doctor may also give you specific instructions. While your treatment has been planned according to the most current medical practices available, unavoidable complications occasionally occur. If you have any problems or questions after discharge, please call your doctor. ACTIVITY You may resume your regular activity, but move at a slower pace for the next 24 hours. Take frequent rest periods for the next 24 hours. Walking will help get rid of the air and reduce the bloated feeling in your abdomen (belly). No driving for 24 hours (because of the anesthesia (medicine) used during the test). You may shower. Do not sign any important legal documents or operate any machinery for 24 hours (because of the anesthesia used during the test). NUTRITION Drink plenty of fluids. You may resume your normal diet as instructed by your doctor. Begin with a light meal and progress to your normal diet. Heavy or fried foods are harder to digestand may make you feel nauseated (sick to your stomach). Avoid alcoholic beverages for 24 hours or as instructed. MEDICATIONS You may resume your normal medications unless your doctor tells you otherwise. WHAT YOU CAN EXPECT TODAY Some feelings of bloating in the abdomen. Passage of more gas than usual. Spotting of blood in your stool or on the toilet paper. FOLLOW-UP Your doctor will discuss the results of your test with you. SEEK IMMEDIATE MEDICAL ATTENTION IF: There is more than a spotting of blood in your stool. There is abdominal distention (your abdomen is swollen). There is vomiting. You have a temperature over 101.5 F. There is abdominal pain or discomfort that is severe or gets worse throughout the day. Endoscopy Care After Procedure Please read the instructions outlined below and refer to this sheet in the next few weeks. These discharge instructions provide you with general information on caring for yourself after you leave thehospital. Your doctor may also give you specific instructions. While your treatment has been planned according to the most current medical practices available, unavoidable complications occasionally occur. If you have any problems or questions after discharge, please call your doctor. ACTIVITY ? You may resume your regular activity but move at a slower pace for the next 24 hours. ? Take frequent rest periods for the next 24 hours. ? Walking will help expel (get rid of) the air and reduce the bloated feeling in your abdomen. ? No driving for 24 hours (because of the anesthesia (medicine) used during the test). ? You may shower. ? Do not sign any important legal documents or operate any machinery for 24 hours (because of the anesthesia used during the test). NUTRITION ? Drink plenty of fluids. ? You may resume your normal diet. ? Begin with a light meal and progress to your normal diet. ? Avoid alcoholic beverages for 24 hours or as instructed by your caregiver. MEDICATIONS ? You may resume your normal medications unless your caregiver tells you otherwise. WHAT YOU CAN EXPECT TODAY ? You may experience abdominal discomfort such as a feeling of fullness or ?gas? pains. FOLLOW-UP ? Your doctor will discuss the results of your test with you. seek immediate medical attention if any of the following occur: ? Excessive nausea (feeling sick to your stomach) and/or vomiting. ? Severe abdominal pain and distention (swelling). ? Trouble swallowing. ? Temperature over 100 F (37.8? C). ? Rectal bleeding or vomiting of blood. Document Released: 10/03/2004 Document Re-Released: 08/13/2006 ExitCare? Patient Information ?2009 [employer].[facility] 10-15-2023 NoteProgress Note-Physician Patient: INDU ST Age: 28 years Sex: Female : 1995 Associated Diagnoses: None Author: Lenny Moreno DO Preoperative Information Anesthesia history: Patient history: None. Family history+: None. Anesthesia results Informed consent: Signed by patient. Including risks, benefits, and alternatives related to the: Anesthetic plan, Postoperative pain management plan. Re-evaluation prior to induction: Lenny Moreno DO. Health Status Allergies: Allergic Reactions (Selected) No Known Medication Allergies, Allergies (1) Active Severity Reaction No Known Medication Allergies None Documented Current medications: (Selected) Inpatient Medications Ordered Lactated Ringers IV Susie 1000 mL 1,000 mL: 1,000 mL, IV, 100 mL/hr, Routine, Start date 10/15/23 7:22:00 EDT, 10 hour(s), Total volume (mL): 1,000, 48.9 kg, 1.51, m2 Sodium Chloride 0.9% IV Susie 1000 mL 1,000 mL: 1,000 mL, IV, 20 mL/hr, Routine, Start date 10/15/23 6:38:00 EDT, 50 hour(s), Total volume (mL): 1,000 Prescriptions Prescribed Miralax 3350 17 gram packet: 17 gm, Oral, Daily, # 527 gm, Refills(s) 5, Pharmacy: [facility] #[id number], 167, cm, 09/13/23 14:57:00 EDT, Height/Length Dosing, 48.9, kg, 09/13/23 14:57:00 EDT, Weight Dosing Pantoprazole [address] Tab: 40 mg = 1 tab(s), Oral, Daily, # 30 tab(s), Refills(s) 4, Pharmacy: [facility] #[id number], 167, cm, 09/13/23 14:57:00 EDT, Height/Length Dosing, 48.9, kg, 09/13/23 14:57:00 EDT, Weight Dosing Documented Medications Documented Advair HFA 115 mcg-21 mcg/inh inhalation aerosol with adapter: 2 puff(s), Inhalation, BID Shortnessof breath or wheezing, Refill(s) [address] Tab: 30 EA, 0 Refill(s), Refills(s) 0 Ritalin 20 mg oral tablet: 40 EA, 0 Refill(s), TAKE 1 TABLET BY MOUTH EVERY MORNING AND 1 TABLET EVERY NIGHT AT BEDTIME, Refills(s) 0 Xanax 0.5 mg Tab: 0.5 mg = 1 tab(s), Oral, TID, PRN for anxiety, Refills(s) 0 cyclophosphamide 50 mg oral capsule: Refills(s) 0, Other (see comment) lamotrigine 25 mg Tab: 42 EA, 0 Refill(s), TAKE 1 TABLET BY MOUTH DAILY FOR 14 DAYS THEN TAKE 1 TABLET BY MOUTH TWICE DAILY, Refills(s) 0, Home Medications (8) Active Advair HFA 115 mcg-21 mcg/inh inhalation aerosol with adapter 2 puff(s), PRN, Inhalation, BID cyclophosphamide 50 mg oral capsule lamotrigine 25 mg Tab Miralax 3350 17 gram packet 17 gm, Oral, Daily Pantoprazole [address] Tab Pantoprazole [address] Tab 40 mg = 1 tab(s), Oral, Daily Ritalin 20 mg oral tablet Xanax 0.5 mg Tab 0.5 mg = 1 tab(s), PRN, Oral, TID , Medications (2) Active Scheduled: (0) Continuous: (2) Lactated Ringers 1,000 mL 1,000 mL, IV, 100 mL/hr Sodium Chloride 0.9% 1,000 mL 1,000 mL, IV, 20 mL/hr PRN: (0) Problem list: All Problems Abnormal CT of the abdomen / SNOMED CT 5255987906 / Confirmed Abnormal uterine bleeding. / SNOMED CT 0872943111 / Confirmed Amenorrhea / SNOMED CT 88008248 / Confirmed Anemia / SNOMED CT 700551221 / Confirmed Anxiety / SNOMED CT 26265363 / Confirmed Asthma / SNOMED CT 819697223 / Confirmed Attention deficit hyperactivity disorder / SNOMED CT 9236701502 / Confirmed Benign neoplasm of pituitary gland / SNOMED CT 312474284 / Confirmed Bilateral arthritis of sacroiliac joint / SNOMED CT 7192046961 / Confirmed Bipolar disorder / SNOMED CT 32685486 / Confirmed Chronic rhinitis / SNOMED CT 404615437 / Confirmed Chronic vaginitis / SNOMED CT 33645872 / Confirmed Depressive disorder / SNOMED CT 65481011 / Confirmed Disorder of pituitary gland / SNOMED CT 4395208448 / Confirmed Endometriosis (clinical) / SNOMED CT 073139488 / Confirmed Esophagitis / SNOMED CT 20168171 / Confirmed Fatigue / SNOMED CT 193942258 / Confirmed Gastritis / SNOMED CT 1343683 / Confirmed Heartburn / SNOMED CT 72868180 / Confirmed History of laparoscopy / SNOMED CT 7601843581 / Confirmed Malignant tumor of cervix / SNOMED CT 933415347 / Confirmed Miscarriage / SNOMED CT 20746103 / Confirmed Nausea and vomiting / SNOMED CT 16987994 / Confirmed Pain in pelvis / SNOMED CT 759069749 / Confirmed Prolactin level above reference range / SNOMED CT 1053576687 / Confirmed Prolactinoma / SNOMED CT 466402182 / Confirmed Sciatica / SNOMED CT 17295031 / Confirmed Seasonal allergic rhinitis / SNOMED CT 509620348 / Confirmed Stress-related physiological response affecting medical condition / SNOMED CT 33332632 / Confirmed 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06-11-20[facility] Miscellaneous Notes* Telephone Encounter - wTyla Salcedo MA - 08/14/2023 11:08 AM EDT Received MRI results completed 08/02/2023, scanned to chart Twyla Salcedo General Cleaner II Endocrinology & Metabolism [facility] F20 & X20 documented [facility] Reason for referral (narrative)* Consultation (Routine) - Authorized Specialty Diagnoses / Procedures Referred By Niki villeda Referred To Contact Gastroenterology Abiodun Ochoa, PAIzaC [address] [place] [address] Do [id number] Gastro1 [address] [facility] [address] [place] [address] Referral ID Status Reason Start Date Expiration Date Visits Requested Visits Authorized [id number] Authorized Specialty Services Required 07/20/2023 07/19/[address] [facility] Work Phone: [phone]) 152-478304-10-2024 NoteHNO ID: [id number] Author: KARINA CUMMINGS MD Service: ? Author Type: Physician Type: Progress Notes Filed: 08/23/2023 09:54 Note Text: Endocrinology/Initial Pituitary Assessment Note: History of Present Illness: Ms. Indu St is a 27 year old female [...] the prolactin as that will be counterproductive Karina Cummings MD., F.A.C.E. DATE of SERVICE: June 13, 2023 TIME of SERVICE: 10:12 [facility]04-10-2024 History of Present illness Narrative* Karina Cummings MD - 06/13/2023 10:12 AM EDT Endocrinology/Initial Pituitary Assessment Note: History of Present Illness: Ms. Indu St is a 27 year old female [...] ESTRADIOL-17B BLD (R79.89) Elevated prolactin level SIGNATURE: Karina Cummings MD DATE of SERVICE: June 13, 2023 TIME of SERVICE: 10:12 AM documented in this encounterSt[facility]11-[facility]-2021 NoteHNO ID: [id number] Author: Renetta Beltran MD Service: Reproductive Endocrinology [...] Renetta Beltran M.D. Reproductive Endocrinology and InfertilityLifepoint HospitalsUofspydx07-21-3220 NoteHNO ID: [id number] Author: RT Juan(R) Service: Radiology Author Type: Technologist Type: Progress Notes Filed: 01/20/2021 12:30 PM Note Text: Radiology Service Progress Note PATIENT NAME: Inud St DATE OF SERVICE: January 20, 2021 [...] BY: RT Juan(R) January 20, 2021 12:29 [facility] Future Appointments Appointment Date:10/01/2023 09:00:00 AM Scheduled Provider: Location:[facility] Services Appointment Type:Surgery FT [facility] Evaluation note* Diagnosis Prolactinoma (HCC)- Primary Benign neoplasm of pituitary gland and craniopharyngeal duct (pouch) 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HCC) Unspecified disorder of the pituitary gland and its hypothalamic control Elevated prolactin level Unspecified endocrine disorder [facility] Diagnosis Nausea and vomiting, unspecified vomiting type- Primary Gastritis, presence of bleeding unspecified, unspecified chronicity, unspecified gastritis type documented in this encounter [facility] Work Phone: Hospital course Narrative No data available for this section [facility] Hospital Discharge instructions* Attachments The following attachments cannot be sent through Care Everywhere. * Gastritis ED (Faroese) * Nausea and Vomiting, Adult ED (Faroese) * Cannabis hyperemesis syndrome (Faroese) [facility] Work Phone: Hospital Discharge instructions No data available for this section [facility] Progress note No data available for this section [facility] Summary Purpose Family History No Family History Records FoundNo Family History Records FoundNo Family History Records FoundNo Family History Records FoundNo Family History Records FoundNo Family History Records Found No data available for this section No Family History Records Found No data available for this section No Family History Records FoundNo Family History [...] Referral Specialty Diagnoses / Procedures Referred By Niki villeda Referred To Contact MR IMAGING Diagnoses 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HCC) Procedures MRI PITUITARY WO/W IVCON MRI BRAIN BRAIN STEM W/O W/CONTRAST MATERIAL Karina Cummings MD [address] [id number] Mr Imaging [facility]95 Referral ID Status Reason Start Date Expiration Date Visits Requested Visits Authorized [id number] Pending Review Auto-Generat ed Referral 07/11/2023 08/09/2024 1 1 Additional Source Comments INFORMATION SOURCE (unrecogn ized section and content) DATE CREATED AUTHOR 04/15/2020 Felice bustamante DATE CREATED AUTHOR AUTHOR'S ORGANIZ ATION 01/22/2021 [facility] DATE CREATED AUTHOR AUTHOR'S ORGANIZ ATION 01/22/2021 [facility] DATE CREATED AUTHOR AUTHOR'S ORGANIZ ATION 07/30/2023 [facility] DATE CREATED AUTHOR AUTHOR'S ORGANIZ ATION 08/24/2023 [facility] DATE CREATED AUTHOR AUTHOR'S ORGANIZ ATION 08/25/2023 [facility] DATE CREATED AUTHOR AUTHOR'S ORGANIZ ATION 09/19/2023 [facility] DATE CREATED AUTHOR AUTHOR'S ORGANIZ ATION 10/16/2023 [facility] DATE CREATED AUTHOR AUTHOR'S ORGANIZ ATION 10/18/2023 [facility] DATE CREATED AUTHOR AUTHOR'S ORGANIZ ATION 10/19/2023 [facility] Source Comments (unrecognize d section and content) In the event this informatio n is protected by the Federal Confidentiality of Alcohol and Drug Abuse Patient Records regulations: The Federal rules restrict any use of the information to criminally investigate or prosecute any alcohol or drug abuse patient.[facility] Hospital[facility] the event this information is protected by the Federal Confidentiality of Alcohol and Drug Abuse Patient Records regulations: The Federal rules restrict any use of the information to criminally investigate or prosecute any alcohol or drug abuse patient.[facility] Reason for Visit (unrecogniz ed section and content) Reason Comments Pituitary Problem Reason Comments n/v. chest pain Reason Comments Results Care Teams (unrecognized sec tion and content) Log Manager Relationship Specialty Start Date End Date Uriel Meade DO [address] [place] [address] [place] [address] Referring Detail Maker [employer] Fitter 06/05/23 Log Manager Relationship Specialty Start Date End Date Uriel Meade DO [address] [place] [address] [address] [id number] Referring Detail Maker And Fitter 06/05/23 Scheduled Active and Recently Administ [...] BE BASED ON THE PRIMARY CLINICAL RECORDS. [facility] [employer] provides no warranty or guarantee of the accuracy or completeness of information in this document.
[2023-11-10 08:12] LABS: Progesterone 10.8 ng/mL (.)
== END 2023-11-08 15:57 | disposition home or self-care (01) ==
LOC: LAB 15:56
PROVIDERS: PCP Family Medicine; Visit Provider Obstetrics & Gynecology
DX: N97.0 Female infertility associated with anovulation (principal)
CPT/HCPCS: 36415; 84144

== ENCOUNTER 2023-12-24 13:37 | Day surgery (SDC) | payer BC, SELFPAY ==
--- OUTSIDE RECORDS SUMMARY | 2023-12-24 13:50 | XMS_ITS | CCD ---
Author Organization [facility] Care Team Providers Care Bone Density Technician Name Role Phone YASMIN MARTINEZ Consulting Unavailable CAROLYNE EDMONDS Primary Care Unavailable YASMIN MARTINEZ Admitting Unavailable YASMIN MARTINEZ Attending Unavailable GIGI COBB Consulting Unavailable KARILDEFONSOKYASMIN Admitting Unavailable KARILDEFONSOKYASMIN Attending Unavailable YASMIN MARTINEZ Consulting Unavailable YASMIN MARTINEZ Consulting Unavailable YASMIN MARTINEZ Admitting Unavailable YASMIN MARTINEZ Attending Unavailable YASMIN MARTINEZ Primary Care Unavailable KARILDEFONSOKYASMIN Admitting Unavailable YASMIN MARTINEZ Attending Unavailable Uriel Meade DO Unavailable Unavailable Primary Care Provider UnavailKARINA Tilley Attending Unavailable Carolyne Edmonds Primary Care Physician [phone] GWEN DANIELSON Attending Unavailable Mouchli, Mohamad ATyrone Referring Unavailable Mouchli, Mohamad A. Admitting Unavailable Zenia Mohamad A. Attending Unavailable Alex Knutson Attending Unavailable Carolyne Edmonds Referring Unavailable Mohelena, Mohamad ATyrone Referring Unavailable Momarcosli, Mohamad A. Attending Unavailable Zenia Mohamad ATyrone Admitting Unavailable URIEL MEADE Attending Unavailable CAROLYNE EDMONDS Attending Unavailable CAROLYNE EDMONDS Attending Unavailable CAROLYNE EDMONDS Attending Unavailable CAROLYNE EDMONDS Attending Unavailable URIEL MEADE Attending Unavailable Allergies Allergy Classification Reported Allergen(s) Allergy Type Date of Onset Reaction(s) Facility (1 source) No Known Medication Allergies; Translations: [No Known Medication Allergies] Propensity to adverse reactions (disorder) [facility] Repository Medications Current Medications Medication Drug Class(es) [...] by mouth once Norethindrone Acet-Ethinyl Est (LOESTRIN ,) 1-20 mg-mcg per tablet Take 1 [...] Daily, # 30 tab(s), Refills(s) 4, Pharmacy: [facility] #[id number], 167, cm, 09/13/23 14:57:00 EDT, Height/Length Dosing, [...] tablet 07/20/2023 08/09/2023 Active polyethylene glycol 3350 62503 mg powder for oral solution (2 sources) Osmotic Laxative Start: 09-13-2023 take 17 g by mouth once daily Miralax 3350 17 gram packet 17 gm, Oral, Daily, # 527 gm, Refills(s) 5, Pharmacy: [facility] #[id number], 167, cm, 09/13/23 14:57:00 EDT, Height/Length Dosing, [...] 07-20-2023 Episodic Other aftercare (1 source) 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 (DC) DC:[facility] Microscopic Description A-C: Microscopic examination performed unless gross only specified. The use of one or more reagents in the above tests is regulated as an analyte specific reagent (ASR). The test or tests are ordered following initial H&E microscopic examination. The performance characteristics were determined by the Laboratory of [facility]. They have not been cleared or approved by the US Food and Drug Administration. The FDA has determined that such clearance or approval is not necessary. These tests are used for clinical purposes. They should not be regarded as investigational or for research. Appropriate positive and negative controls are performed and are acceptable. Normal [facility] Comment on above: Performed By: #### 4 [id number] #### [facility] [address] [place] [address] Main OR Intraoperative Recor don 10-16-2023 Main OR Intraoperative Record Main OR Intraoperative Record IntraOp Document Type FT Summary Primary Physician: Alex Knutson MD Finalized Date/Time: 10/16/23 12:11:53 Pt. Name: ALMA ROSA INDU Starks/Sex: 1995 Female Med Rec #: [id number] Physician: Alex Knutson MD Financial #: [id number] Pt. Type: O Room/Bed: / Admit/Disch: 10/15/23 06:46:50 - 10/15/23 23:59:59 Institution: Case Times FT Entry 1 Patient Times In Room 10/15/23 09:16:00 Out Room 10/15/23 09:40:00 Procedure Times Start 10/15/23 09:21:00 Stop 10/15/23 09:38:00 Anesthesia Times Start 10/15/23 09:16:00 Stop 10/15/23 09:40:00 Time at [facility] 10/15/23 09:29:00 Last Modified By: Brennan WHITE, Kristen 10/15/23 09:40:16 General Comments: 925-EGD completed/AW RN 927-Colonoscopy started/AW RN 10/16/23 Chart opened to review and send charges LRoth CSFA Case Attendance FT Entry 1 Entry 2 Entry 3 Case Attendee Lenny Moreno DO, RN, Promise Willis Role Performed Anesthesiologist of Crew Dispatcher - Primary Scrub - Primary Record Time In 10/15/23 09:16:00 10/15/23 09:16:00 10/15/23 09:16:00 Time Out 10/15/23 09:40:00 10/15/23 09:40:00 10/15/23 09:40:00 Procedure EGD AND COLONOSCOPY(.) EGD AND COLONOSCOPY(.) EGD AND COLONOSCOPY(.) Comments Last Modified By: Brennan WHITE, Kristen Amin RN, Kristen Larsen RN 10/15/23 09:40:17 10/15/23 09:40:17 10/15/23 09:40:17 Entry 4 Case Attendee Zenia ELLISON, Alex Berry Role Performed Surgeon - Primary Time In [...] Amin RN, Miles, Kirstyn K, Mouchli MD, lAex Berry Time Out Complete 10/15/23 09:19:00 Outcomes Met? [...] biopsies. COLONOSCOPY Primary Procedure Yes Primary Surgeon Zenia ELLISON, Alex Berry Start 10/15/23 09:21:00 Stop 10/15/23 09:38:00 Anesthesia [...] and tissue Entry 1 Skin Integrity Intact, [place], Warm, & Skin Abnormality No Dry Outcomes [...] and symptom (more content not included)... Normal [facility] B hCG Qualon 10-15-2023 Beta HCG ( test) Ql Negative Normal [facility] Comment on above: Performed By: #### 2 [id number] #### [facility] [address] [place] [address] Discharge Instructionson Discharge Instructions Discharge Instruc tions INDU ST :1995 Visit Date:10/15/2023 Inpatient Discharge Instructions Your Care Team Admitting Physician - Alex Knutson MD Referring Physician - Alex Knutson MD Reason for Your Visit WEIGHT LOSS, NAUSEA [...] weeks Comments: Call for any problems. Where: [address] [place] [address] [address], [address] [place] [address]- [phone] Business (1) Medications What How Much When Why [...] MEDICATIONS Yo (more content not included)... Normal [facility] Comment on above: Result Comment: Elec tronically Signed By: Obi WHITE, Mery\.br\Date and Time Signed: 10/15/23 09:50 EDT EGDon 10-15-2023 Esophagogastroduodenosc opy EGD Patient: INDU ST [...] Daily, # 527 gm, Refills(s) 5, Pharmacy: [facility] #[id number], 167, cm, 09/13/23 14:57:00 EDT, Height/Length Dosing, 48.9, kg, 09/13/23 14:57:00 EDT, Weight Dosing Pantoprazole [address] Tab: 40 mg = 1 tab(s), Oral, Daily, # 30 tab(s), Refills(s) 4, Pharmacy: [facility] #[id number], 167, cm, 09/13/23 14:57:00 EDT, Height/Length Dosing, [...] duodenum. Biopsies obtained Images Procedure images: Rec1_hd_video_ [id number].jpg Rec1_hd_video_ [id number].jpg Rec1_hd_video_ [id number].jpg Rec1_hd_video_ [id number].jpg Rec1_hd_video_ [id number].jpg Rec1_hd_video_ [id number].jpg . Post-Procedure Complications: none. Estimated blood loss: minimal. Specimens: sent to pathology. Devices/ implants: none left in place. Impression and Plan mild gastropathy Recommendations: -Resume previous diet -Resume home medications -Await pathology results, follow in GI clinic in 1-2 after discharge Ramón [facility] Comment on above: Other Comment: Griselda blanco Attachment - attachment storage system not supported [id number] Can be viewed in source system Missing Attachment - attachment storage system not supported [id number] Can be viewed in source system Missing Attachment - attachment storage system not supported [id number] Can be viewed in source system Missing Attachment - attachment storage system not supported [id number] Can be viewed in source system Missing Attachment - attachment storage system not supported [id number] Can be viewed in source system Missing Attachment - attachment storage system not supported [id number] Can be viewed in source system Main OR PACU I Recordon 10-03 Main OR PACU I Record Main OR PACU I Rec ord PACU Phase I Document Type FT Summary Primary Physician: Alex Knutson MD Finalized Date/Time: 10/15/23 10:19:29 Pt. Name: ALMA ROSAINDU/Sex: 1995 Female Med Rec #: [id number] Physician: Alex Knutson MD Financial #: [id number] Pt. Type: O Room/Bed: / Admit/Disch: 10/15/23 [...] By: Mery Crocker RN 10/15/23 10:19 Normal [facility] Main OR Preoperative Recordo n 10-15-2023 Main OR Preoperative Record Main OR Preoperative Record Holding Area Document Type FT Summary Primary Physician: Alex Knutson MD Finalized Date/Time: 10/15/23 07:13:13 Pt. Name: ALMA ROSAINDU/Sex: 1995 Female Med Rec #: [id number] Physician: Alex Knutson MD Financial #: [id number] Pt. Type: O Room/Bed: / Admit/Disch: 10/15/23 [...] By: Ofe Atkins RN 10/15/23 07:13 Normal [facility] SEROLOGYOrdered By: Germaine Sauer on 10-15-2023 Beta HCG ( test) Ql Negative (10/15/23 7:55 AM) Normal [facility] Ambulatory Visit Summaryon 0 09-13-2023 Ambulatory Visit Summary Ambulatory Visit Summary INDU ST :1995 Visit Date:09/13/2023 Ambulatory Visit Instructions [...] Visceral hypersensitivity syndrome Refills: 4 Pickup at [facility] #35544 New polyethylene glycol 3350 (Miralax 3350 17 gram packet) 17 Gram By Mouth Every day Weight loss Nausea and vomiting Heartburn Bipolar disorder Stress-related physiological response affecting medical condition Visceral hypersensitivity syndrome Refills: 5 Pickup at [facility] #43042 Unchanged alprazolam (Xanax 0.5 mg Tab) 1 [...] physician if questions or concerns Pharmacy Information [facility] #[id number]: [address], [place] [phone] Allergies No Known Medication Allergies Problems Ongoing [...] choosing us for your care. Ramón [facility] Gastroenterology Office/Clin ic Noteon 09-13-2023 Gastroenterology Office/Clinic [...] Daily, # 30 tab(s), Refills(s) 4, Pharmacy: [facility] #[id number], 167, cm, 09/13/23 14:57:00 EDT, Height/Length Dosing, 48.9, kg, 09/13/23 14:57:00 EDT, Weight Dosing polyethylene glycol 3350, 17 gm, Oral, Daily, # 527 gm, Refills(s) 5, Pharmacy: [facility] #[id number], 167, cm, 09/13/23 14:57:00 EDT, Height/Length Dosing, 48.9, kg, 09/13/23 14:57:00 EDT, Weight Dosing Colonoscopy (Hospital Procedure) EGD Endoscopy (Hospital Procedure) 2. Nausea and vomiting (R11.2: Nausea with vomiting, unspecified) Ordered: pantoprazole, 40 mg = 1 tab(s), Oral, Daily, # 30 tab(s), Refills(s) 4, Pharmacy: [facility] #[id number], 167, cm, 09/13/23 14:57:00 EDT, Height/Length Dosing, 48.9, kg, 09/13/23 14:57:00 EDT, Weight Dosing polyethylene glycol 3350, 17 gm, Oral, Daily, # 527 gm, Refills(s) 5, Pharmacy: [facility] #[id number], 167, cm, 09/13/23 14:57:00 EDT, Height/Length Dosing, 48.9, kg, 09/13/23 14:57:00 EDT, Weight Dosing Colonoscopy (Hospital Procedure) EGD Endoscopy (Hospital Procedure) 3. Heartburn (R12: Heartburn) Ordered: pantoprazole, 40 mg = 1 tab(s), Oral, Daily, # 30 tab(s), Refills(s) 4, Pharmacy: [facility] #[id number], 167, cm, 09/13/23 14:57:00 EDT, Height/Length Dosing, 48.9, kg, 09/13/23 14:57:00 EDT, Weight Dosing polyethylene glycol 3350, 17 gm, Oral, Daily, # 527 gm, Refills(s) 5, Pharmacy: [facility] #[id number], 167, cm, 09/13/23 14:57:00 EDT, Height/Length Dosing, 48.9, kg, 09/13/23 14:57:00 EDT, Weight Dosing Colonoscopy (Hospital Procedure) EGD Endoscopy (Hospital Procedure) 4. Bipolar disorder (F31.9: Bipolar disorder, unspecified) Ordered: pantoprazole, 40 mg (more content not included)... Normal [facility] Comment on above: Result Comment: Elec tronically Signed By: Zenia ELLISON, Alex Kapoor.br\Date and Time Signed: 09/13/23 15:22 EDT Angelic 08-14-2023 MAHENDRA Telephone (ENDOMN) -------- ALMA ROSAINDU ROCA ([id number]) 1995 F Date Time Provider Department 08/14/23 KARINA CUMMINGS During your visit today, we recorded the following information about you: Twyla Salcedo MA 08/14/2023 11:09 AM Signed Received MRI results completed 08/02/2023, scanned to chart Twyla Salcedo Hand Compositor II Endocrinology AND Metabolism [facility] F20 AND X20 Allergies As of [...] Status:Closed by TWYLA SALCEDO on 08/14/23 Normal [facility] CBC W Auto Differential pane l (Bld)on 07-20-2023 Basophils (Bld) [#/Vol] 0.03 10*3/uL [facility] Basophils/100 WBC (Bld) 0.3 % 0.0 - 2.0 % [facility] Eosinophils (Bld) [#/Vol] 0.00 10*3/uL [facility] Eosinophils/100 WBC (Bld) 0.0 % 0.0 - 6.0 % [facility] Erythrocyte distribution width (RBC) [Ratio] 14.5 % 11.5 - 14.5 % [facility] Hematocrit (Bld) [Volume fraction] 39.1 % 36.0 - 46.0 % [facility] Hemoglobin (Bld) [Mass/Vol] 13.5 g/dL 12.0 - 16.0 g/dL [facility] Immature granulocytes (Bld) [#/Vol] 0.03 10*3/uL [facility] Immature granulocytes/100 WBC (Bld) 0.3 % 0.0 - 0.9 % [facility] Comment on above: Immature Granulocyte Count (IG) includes promyelocytes, myelocytes and metamyelocytes but does not include bands. Percent differential counts (%) should be interpreted in the context of the absolute cell counts (cells/UL). Interpretation and review of laboratory results Abnormal [facility] Lymphocytes (Bld) [#/Vol] 0.98 10*3/uL Low [facility] Lymphocytes/100 WBC (Bld) 8.5 % 13.0 - 44.0 % [facility] MCH (RBC) [Entitic mass] 28.7 pg 26.0 - 34.0 pg [facility] MCHC (RBC) [Mass/Vol] 34.5 g/dL 32.0 - 36.0 g/dL [facility] MCV (RBC) [Entitic vol] 83 fL 80 - 100 fL [facility] Monocytes (Bld) [#/Vol] 0.13 10*3/uL [facility] Monocytes/100 WBC (Bld) 1.1 % 2.0 - 10.0 % [facility] Neutrophils (Bld) [#/Vol] 10.32 10*3/uL High [facility] Comment on above: Percent differential counts (%) should be interpreted in the context of the absolute cell counts (cells/uL). Neutrophils/100 WBC (Bld) 89.8 % 40.0 - 80.0 % [facility] Nucleated RBC/100 WBC (Bld) [Ratio] 0.0 % [facility] Platelets (Bld) [#/Vol] 290 10*3/uL [facility] RBC (Bld) [#/Vol] 4.71 10*6/uL [facility] WBC (Bld) [#/Vol] 11.5 10*3/uL [facility] Basophils (Bld) [#/Vol] 0.03 x10*3/uL Normal 0.00-0.10 [facility] Comment on above: Performed By: #### 5 7021-8 #### JIMENA Mark ([id number]) [facility] [address] [place] [address] Basophils/100 WBC (Bld) 0.3 % Normal 0.0-2.0 [facility] Comment on above: Performed By: #### 5 7021-8 #### JIMENA Mark ([id number]) [facility] ([facility]) [address] [place] [address] Eosinophils (Bld) [#/Vol] 0.00 x10*3/uL Normal 0.00-0.70 [facility] Comment on above: Performed By: #### 5 7021-8 #### JIMENA Mark ([id number]) [facility] ([facility]) [address] [place] [address] Eosinophils/100 WBC (Bld) 0.0 % Normal 0.0-6.0 [facility] Comment on above: Performed By: #### 5 7021-8 #### JIMENA Mark ([id number]) [facility] ([facility]) [address] [place] [address] Erythrocyte distribution width (RBC) [Ratio] 14.5 % Normal 11.5-14.5 [facility] Comment on above: Performed By: #### 5 7021-8 #### JIMENA Mark ([id number]) [facility] ([facility]) [address] [place] [address] Hematocrit (Bld) [Volume fraction] 39.1 % Normal 36.0-46.0 [facility] Comment on above: Performed By: #### 5 7021-8 #### JIMENA Mark ([id number]) [facility] ([facility]) [address] [place] [address] Hemoglobin (Bld) [Mass/Vol] 13.5 g/dL Normal 12.0-16.0 [facility] Comment on above: Performed By: #### 5 7021-8 #### JIMENA Mark ([id number]) [facility] ([facility]) [address] [place] [address] Immature granulocytes (Bld) [#/Vol] 0.03 x10*3/uL Normal 0.00-0.70 [facility] Comment on above: Performed By: #### 5 7021-8 #### JIMENA Mark ([id number]) [facility] ([facility]) [address] [place] [address] Immature granulocytes/100 WBC (Bld) 0.3 % Normal 0.0-0.9 [facility] Comment on above: Result Comment: Yanet ture Granulocyte Count (IG) includes promyelocytes, myelocytes and metamyelocytes but does not include bands. Percent differential counts (%) should be interpreted in the context of the absolute cell counts (cells/UL). Performed By: #### 5 7021-8 #### JIMENA Mark ([id number]) [facility] ([facility]) [address] [place] [address] Lymphocytes (Bld) [#/Vol] 0.98 x10*3/uL Low 1.20-4.80 [facility] Comment on above: Performed By: #### 5 7021-8 #### JIMENA Mark ([id number]) [facility] ([facility]) [address] [place] [address] Lymphocytes/100 WBC (Bld) 8.5 % Normal 13.0-44.0 [facility] Comment on above: Performed By: #### 5 7021-8 #### JIMENA Mark ([id number]) [facility] ([facility]) [address] [place] [address]2612 MCH (RBC) [Entitic mass] 28.7 pg Normal 26.0-34.0 [facility] Comment on above: Performed By: #### 5 7021-8 #### JIMENA Mark ([id number]) [facility] ([facility]) [address] [place] [address]341 MCHC (RBC) [Mass/Vol] 34.5 g/dL Normal 32.0-36.0 [facility] Comment on above: Performed By: #### 5 7021-8 #### JIMENA Mark ([id number]) [facility] ([facility]) [address] [place] [address] MCV (RBC) [Entitic vol] 83 fL Normal 80-100 U [facility] Comment on above: Performed By: #### 5 7021-8 #### JIMENA Mark ([id number]) [facility] ([facility]) [address] [place] [address]84 Monocytes (Bld) [#/Vol] 0.13 x10*3/uL Normal 0.10-1.00 [facility] Comment on above: Performed By: #### 5 7021-8 #### JIMENA Mark ([id number]) [facility] ([facility]) [address] [place] [address] 15487 Monocytes/100 WBC (Bld) 1.1 % Normal 2.0-10.0 U [facility] Comment on above: Performed By: #### 5 7021-8 #### JIMENA Mark ([id number]) [facility] ([facility]) [address] [place] [address] 40919 Neutrophils (Bld) [#/Vol] 10.32 x10*3/uL High 1.20-7.70 [facility] Comment on above: Result Comment: Perc ent differential counts (%) should be interpreted in the context of the absolute cell counts (cells/uL). Performed By: #### 5 7021-8 #### JIMENA Mark ([id number]) [facility] ([facility]) [address] [place] [address] 41005 Neutrophils/100 WBC (Bld) 89.8 % Normal 40.0-80.0 [facility] Comment on above: Performed By: #### 5 7021-8 #### JIMENA Mark ([id number]) [facility] ([facility]) [address] [place] [address] 71391 Nucleated RBC/100 WBC (Bld) [Ratio] 0.0 /100 WBCs Normal 0.0-0.0 [facility] Comment on above: Performed By: #### 5 7021-8 #### JIMENA Mark ([id number]) [facility] ([facility]) [address] [place] [address] Platelets (Bld) [#/Vol] 290 x10*3/uL Normal 150-450 [facility] Comment on above: Performed By: #### 5 7021-8 #### JIMENA Mark ([id number]) [facility] ([facility]) [address] [place] [address] 97542 RBC (Bld) [#/Vol] 4.71 x10*6/uL Normal 4.00-5.20 [facility] Comment on above: Performed By: #### 5 7021-8 #### JIMENA Mark ([id number]) [facility] ([facility]) [address] [place] [address] WBC (Bld) [#/Vol] 11.5 x10*3/uL High 4.4-11.3 [facility] Comment on above: Performed By: #### 5 7021-8 #### JIMENA Mark ([id number]) [facility] ([facility]) [address] [place] [address] CHEST ABDOMEN PELVIS W IV CONTRASTon 07-20-2023 CT CHEST ABDOMEN PELVIS W IV CONTRAST Interpreted By: Mag Santiago, STUDY: CT CHEST ABDOMEN PELVIS W IV CONTRAST; 07/20/2023 5:39 pm INDICATION: Signs/Symptoms:Persisten t vomiting, epigastric pain in the chest.. COMPARISON: Chest x-ray 07/20/2023. ACCESSION NUMBER(S): [id number] ORDERING CLINICIAN: ABIODUN OCHOA TECHNIQUE: Axial CT [...] Mag Santiago 07/20/2023 6:51 PM Dictation workstation: [id number] [facility] CT Chest and Abdomen and Pel [...] Mag Santiago 07/20/2023 6:51 PM Dictation workstation: [id number] Interpreted By: Mag Santiago, STUDY: CT CHEST ABDOMEN PELVIS W IV CONTRAST; 07/20/2023 5:39 pm INDICATION: Signs/Symptoms:Persisten t vomiting, epigastric pain in the chest.. COMPARISON: Chest x-ray 07/20/2023. ACCESSION NUMBER(S): [id number] ORDERING CLINICIAN: ABIODUN OCHOA TECHNIQUE: Axial CT [...] chest.. COMPARISON: Chest x-ray 07/20/2023. ACCESSION NUMBER(S): [id number] ORDERING CLINICIAN: ABIODUN OCHOA TECHNIQUE: Axial CT [...] Mag Santiago 07/20/2023 6:51 PM Dictation workstation: [id number] [facility] Work Phone: Radiology Study observation (narrative) [facility] Work Phone: CT Chest and Abdomen and Pel vis W contrast IVOrdered By: Mag Santiago on 07-20-2023 [facility] Work Phone: Choriogonadotropin.beta subu niton 07-20-2023 HCG.beta subunit Qn m[IU]/mL Normal <5 [facility] Comment on above: Order Comment: Total HCG measurement is performed using the Jade Saleem Access Immunoassay which detects intact HCG and free beta HCG subunit. This test is not indicated for use as a tumor marker. HCG testing is performed using a different test methodology at [facility] than other [facility]. Direct result comparison should only be made within the same method. Performed By: #### 2 1198-7 #### JIMENA Mark ([id number]) [facility] ([facility]) [address] [place] [address] Comprehensive metabolic 2000 panelon 07-20-2023 Albumin BCP dye [Mass/Vol] 4.7 g/dL 3.4 - 5.0 g/dL [facility] ALP [Catalytic activity/Vol] 47 U/L 33 - 110 U/L [facility] ALT With P-5'-P [Catalytic activity/Vol] 14 U/L 7 - 45 U/L [facility] Comment on above: Patients treated wit h Sulfasalazine may generate falsely decreased results for ALT. Anion gap [Moles/Vol] 18 mmol/L 10 - 2 0 mmol/L [facility] AST With P-5'-P [Catalytic activity/Vol] 15 U/L 9 - 39 U/L [facility] Bilirubin [Mass/Vol] 0.6 mg/dL 0.0 - 1 .2 mg/dL [facility] Calcium [Mass/Vol] 9.8 mg/dL 8.6 - 10. 3 mg/dL [facility] Chloride [Moles/Vol] 105 mmol/L 98 - 10 7 mmol/L [facility] CO2 [Moles/Vol] 19 mmol/L Low 21 - 32 mmol/L [facility] Creatinine [Mass/Vol] 0.77 mg/dL 0.50 - 1.05 mg/dL [facility] eGFR - PINF [facility] Comment on above: Calculations of lesli mated GFR are performed using the 2020 CKD-EPI Study Refit equation without the race variable for the IDMS-Traceable creatinine methods. https://jasn.asnjournals.org/content//ASN.2020 684729 Glucose [Mass/Vol] 147 mg/dL High 74 - 99 mg/dL [facility] Hospital Interpretation and review of laboratory results Abnormal [facility] Potassium [Moles/Vol] 3.8 mmol/L 3.5 - 5.3 mmol/L [facility] Protein [Mass/Vol] 7.3 g/dL 6.4 - 8.2 g/dL [facility] Sodium [Moles/Vol] 138 mmol/L 136 - 145 mmol/L [facility] Urea nitrogen [Mass/Vol] 15 mg/dL 6 - 23 mg/dL [facility] Albumin BCP dye [Mass/Vol] 4.7 g/dL Normal 3.4-5.0 [facility] Comment on above: Performed By: #### 2 4323-8 #### JIMENA Mark ([id number]) [facility] ([facility]) [address] [place] [address] 45438 ALP [Catalytic activity/Vol] 47 U/L Normal 33-110 [facility] Comment on above: Performed By: #### 2 4323-8 #### JIMENA Mark ([id number]) [facility] ([facility]) [address] [place] [address] 15720 ALT With P-5'-P [Catalytic activity/Vol] 14 U/L Normal 7-45 [facility] Comment on above: Result Comment: Edel ents treated with Sulfasalazine may generate falsely decreased results for ALT. Performed By: #### 2 4323-8 #### JIMENA aMrk ([id number]) [facility] ([facility]) [address] [place] [address] 41122 Anion gap [Moles/Vol] 18 mmol/L Normal 10-20 [facility] Comment on above: Performed By: #### 2 4323-8 #### JIMENA Mark ([id number]) [facility] ([facility]) [address] [place] [address] 19179 AST With P-5'-P [Catalytic activity/Vol] 15 U/L Normal 9-39 [facility] Comment on above: Performed By: #### 2 4323-8 #### JIMENA Mark ([id number]) [facility] ([facility]) [address] [place] [address] 43784 Bilirubin [Mass/Vol] 0.6 mg/dL Normal 0.0-1.2 [facility] Comment on above: Performed By: #### 2 4323-8 #### JIMENA Mark ([id number]) [facility] ([facility]) [address] [place] [address] 09245 Calcium [Mass/Vol] 9.8 mg/dL Normal 8.6-10.3 [facility] Comment on above: Performed By: #### 2 4323-8 #### JIMENA Mark ([id number]) [facility] ([facility]) [address] [place] [address] Chloride [Moles/Vol] 105 mmol/L Normal 98-107 [facility] Comment on above: Performed By: #### 2 4323-8 #### JIMENA Mark ([id number]) [facility] ([facility]) [address] [place] [address] 53741 CO2 [Moles/Vol] 19 mmol/L Low 21-32 [facility] Comment on above: Performed By: #### 2 4323-8 #### JIMENA Mark ([id number]) [facility] ([facility]) [address] [place] [address] 06233 Creatinine [Mass/Vol] 0.77 mg/dL Normal 0.50-1.05 [facility] Comment on above: Performed By: #### 2 4323-8 #### JIMENA Mark ([id number]) [facility] ([facility]) [address] [place] [address] 99730 GFR/1.73 sq M.predicted MDRD (S/P/Bld) [Vol rate/Area] mL/min/{1.73_m2} Normal >60 [facility] Comment on above: Result Comment: Calc ulations of estimated GFR are performed using the 2020 CKD-EPI Study Refit equation without the race variable for the IDMS-Traceable creatinine methods. https://jasn.asnjournals.org/content//ASN.2020 747181 Performed By: #### 2 4323-8 #### JIMENA Mark ([id number]) [facility] ([facility]) [address] [place] [address] 80977 Glucose [Mass/Vol] 147 mg/dL High 74-99 [facility] Comment on above: Performed By: #### 2 4323-8 #### JIMENA Mark ([id number]) [facility] ([facility]) [address] [place] [address] 69124 Potassium [Moles/Vol] 3.8 mmol/L Normal 3.5-5.3 [facility] Comment on above: Performed By: #### 2 4323-8 #### JIMENA Mark ([id number]) [facility] ([facility]) [address] [place] [address] 03424 Protein [Mass/Vol] 7.3 g/dL Normal 6.4-8.2 [facility] Comment on above: Performed By: #### 2 4323-8 #### JIMENA Mark ([id number]) [facility] ([facility]) [address] [place] [address] 67382 Sodium [Moles/Vol] 138 mmol/L Normal 136-145 [facility] Comment on above: Performed By: #### 2 4323-8 #### JIMENA Mark ([id number]) [facility] ([facility]) [address] [place] [address] 75711 Urea nitrogen [Mass/Vol] 15 mg/dL Normal 6-23 [facility] Comment on above: Performed By: #### 2 4323-8 #### JIMENA Mark ([id number]) [facility] ([facility]) [address] [place] [address] 24582 DRUG SCREEN,URINEon 07-20-19 24 Amphetamines Screen Ql (U) Negative Normal Presumptive Negative [facility] Comment on above: Order Comment: Drug screen results are presumptive and should not be used to assess compliance with prescribed medication. Contact the performing [facility] laboratory to add-on definitive confirmatory testing [...] pseudoephedrine, and propranolol. Performed By: #### Kobi RUG3 #### JIMENA Mark ([id number]) [facility] ([facility]) [address] [place] [address] Barbiturates Screen Ql (U) Negative Normal Presumptive Negative [facility] Comment on above: Order Comment: Drug screen results are presumptive and should not be used to assess compliance with prescribed medication. Contact the performing [facility] laboratory to add-on definitive confirmatory testing [...] FF LEVEL: 200 NG/ML Performed By: #### Kobi RUG3 #### JIMENA Mark ([id number]) [facility] ([facility]) [address] [place] [address] Benzodiazepines Ql (U) Negative Normal Presu mptive Negative [facility] Comment on above: Order Comment: Drug screen results are presumptive and should not be used to assess compliance with prescribed medication. Contact the performing [facility] laboratory to add-on definitive confirmatory testing [...] By: #### D RUG3 #### JIMENA Mark ([id number]) [facility] ([facility]) [address] [place] [address] 43046 Benzoylecgonine Screen Ql (U) Negative Normal Presumptive Negative [facility] Comment on above: Order Comment: Drug screen results are presumptive and should not be used to assess compliance with prescribed medication. Contact the performing [facility] laboratory to add-on definitive confirmatory testing [...] By: #### D RUG3 #### JIMENA Mark ([id number]) [facility] ([facility]) [address] [place] [address] 48386 Cannabinoids Screen Ql (U) Positive Abnormal Presumptive Negative [facility] Comment on above: Order Comment: Drug screen results are presumptive and should not be used to assess compliance with prescribed medication. Contact the performing [facility] laboratory to add-on definitive confirmatory testing [...] By: #### D RUG3 #### JIMENA Mark ([id number]) [facility] ([facility]) [address] [place] [address] 56284 fentaNYL+Norfentanyl Screen Ql (U) Negative Normal Presumptive Negative [facility] Comment on above: Order Comment: Drug screen results are presumptive and should not be used to assess compliance with prescribed medication. Contact the performing [facility] laboratory to add-on definitive confirmatory testing [...] By: #### D RUG3 #### JIMENA Mark ([id number]) [facility] ([facility]) [address] [place], [place] [id number] Methadone Screen Ql (U) Negative Normal Pres umptive Negative [facility] Comment on above: Order Comment: Drug screen results are presumptive and should not be used to assess compliance with prescribed medication. Contact the performing [facility] laboratory to add-on definitive confirmatory testing [...] CUTO FF LEVEL: 150 NG/ML The metabolite Z-fvjfe-gylspsyttlukzp (LAAM) is not detected by this method in concentrations that would be found in the urine of patients on LAAM therapy. Performed By: #### D RUG3 #### JIMENA Mark ([id number]) [facility] ([facility]) [address] [place] [address] 58873 Opiates Screen Ql (U) Negative Normal Presum ptive Negative [facility] Comment on above: Order Comment: Drug screen results are presumptive and should not be used to assess compliance with prescribed medication. Contact the performing [facility] laboratory to add-on definitive confirmatory testing [...] By: #### Kobi RUG3 #### JIMENA Mark ([id number]) [facility] ([facility]) [address] [place] [address] 96848 oxyCODONE+oxyMORphone Screen Ql (U) Negative Normal Presumptive Negative [facility] Comment on above: Order Comment: Drug screen results are presumptive and should not be used to assess compliance with prescribed medication. Contact the performing [facility] laboratory to add-on definitive confirmatory testing [...] By: #### D RUG3 #### JIMENA Mark ([id number]) [facility] ([facility]) [address] [place] [address] 91880 Phencyclidine Ql (U) Negative Normal Presump tive Negative [facility] Comment on above: Order Comment: Drug screen results are presumptive and should not be used to assess compliance with prescribed medication. Contact the performing [facility] laboratory to add-on definitive confirmatory testing [...] By: #### D SAMY #### JIMENA Mark ([id number]) [facility] ([facility]) [address] [place] [address] 59496 Drug Screen, Urineon 024 Amphetamines Screen Ql (U) Negative Presumptive Negative [facility] Comment on above: CUTOFF LEVEL: 500 NG /ML Cross-reactivity has been reported with high concentrations of the following drugs: buproprion, chloroquine, chlorpromazine, ephedrine, mephentermine, fenfluramine, phentermine, phenylpropanolamine, pseudoephedrine, and propranolol. Barbiturates Screen Ql (U) Negative Presumptive Negative [facility] Comment on above: CUTOFF LEVEL: 200 NG /ML Benzodiazepines Ql (U) Negative Presu mptive Negative [facility] Comment on above: CUTOFF LEVEL: 200 NG /ML Benzoylecgonine Screen Ql (U) Negative Presumptive Negative [facility] Comment on above: CUTOFF LEVEL: 150 NG /ML Cannabinoids Screen Ql (U) Positive Abnormal Presumptive Negative [facility] Comment on above: CUTOFF LEVEL: 50 NG/ ML fentaNYL+Norfentanyl Screen Ql (U) Negative Presumptive Negative [facility] Comment on above: CUTOFF LEVEL: 5 NG/M L Interpretation and review of laboratory results Abnormal [facility] Methadone Screen Ql (U) Negative Pres umptive Negative [facility] Comment on above: CUTOFF LEVEL: 150 NG /ML The metabolite Q-lqtom-rjicqputeozqsf (LAAM) is not detected by this method in concentrations that would be found in the urine of patients on LAAM therapy. Opiates Screen Ql (U) Negative Presum ptive Negative [facility] Comment on above: CUTOFF LEVEL: 300 NG /ML The opiate screen does not detect fentanyl, meperidine, or tramadol. Oxycodone is not consistently detected (refer to Oxycodone Screen, Urine result). oxyCODONE+oxyMORphone Screen Ql (U) Negative Presumptive Negative [facility] Comment on above: CUTOFF LEVEL: 100 NG /ML This test will accurately detect both oxycodone and oxymorphone. Phencyclidine Ql (U) Negative Presump tive Negative [facility] Comment on above: CUTOFF LEVEL: 25 NG/ ML Cross-reactivity has been reported with dextromethorphan. Drug screen results are presumptive and should not be used to assess compliance with prescribed medication. Contact the performing [facility] laboratory to add-on definitive confirmatory testing [...] be directed to the laboratory medical directors. [facility] ECG 12-LEADon 07-20-2023 ECG 12-LEAD Ventricular Rate 68 Atrial Rate 67 P-R Interval 110 QRS Duration 126 Q-T Interval 419 QTC Calculation(Bazett) 446 P Ganado 82 R Ganado 77 T Ganado 67 QRS Count 11 Q Onset 249 T Offset 459 QTC Fredericia 437 Diagnosis Sinus rhythm Borderline short AK interval Nonspecific intraventricular conduction delay ST elev, probable normal early repol pattern See ED provider note for full interpretation and clinical correlation Confirmed by Lynsey Luna ([id number]) on 07/28/2023 12:23:14 PM Normal [facility] HCG.beta subunit Qnon 2023 Interpretation and review of laboratory results Normal [facility] Total HCG measuremen t is performed using the Jade Saleem Access Immunoassay which detects intact HCG and free beta HCG subunit. This test is not indicated for use as a tumor marker. HCG testing is performed using a different test methodology at [facility] than other [facility]. Direct result comparison should only be made within the same method. [facility] Human Chorionic Gonadotropin , Serum Quantitativeon 07-20-2023 HCG.beta subunit Qn NINF [facility] Lactateon 07-20-2023 Lactate [Moles/Vol] 1.4 mmol/L 0.4 - 2. 0 mmol/L [facility] Lactate [Moles/Vol] 1.4 mmol/L Normal 0.4-2.0 [facility] Comment on above: Order Comment: Venip uncture immediately after or during the administration of Metamizole may lead to falsely low results. Testing should be performed immediately prior to Metamizole dosing. Performed By: #### 2 524-7 #### JIMENA Mark ([id number]) [facility] ([facility]) [address] [place] [address] 42724 Lactate [Moles/Vol] 2.2 mmol/L High 0.4 - 2. 0 mmol/L [facility] Lactate [Moles/Vol] 2.2 mmol/L High 0.4-2.0 [facility] Comment on above: Order Comment: Venip uncture immediately after or during the administration of Metamizole may lead to falsely low results. Testing should be performed immediately prior to Metamizole dosing. Performed By: #### 2 524-7 #### JIMENA Mark ([id number]) [facility] ([facility]) [address] [place] [address] 58216 Lactate [Moles/Vol]on 2023 Interpretation and review of laboratory results Normal [facility] Venipuncture immedia tely after or during the administration of Metamizole may lead to falsely low results. Testing should be performed immediately prior to Metamizole dosing. [facility] Interpretation and review of laboratory results Abnormal [facility] Venipuncture immedia tely after or during the administration of Metamizole may lead to falsely low results. Testing should be performed immediately prior to Metamizole dosing. [facility] Lipaseon 07-20-2023 Lipase [Catalytic activity/Vol] 10 U/L U/L [facility] Lipase [Catalytic activity/V ol]on 07-20-2023 Interpretation and review of laboratory results Normal [facility] Venipuncture immedia tely after or during the administration of Metamizole may lead to falsely low results. Testing should be performed immediately prior to Metamizole dosing. [facility] Triacylglycerol lipaseon Lipase [Catalytic activity/Vol] 10 U/L Normal [facility] Comment on above: Order Comment: Venip uncture immediately after or during the administration of Metamizole may lead to falsely low results. Testing should be performed immediately prior to Metamizole dosing. Performed By: #### 3 040-3 #### JIMENA Mark ([id number]) [facility] ([facility]) [address] [place] [address] Tropinin I.cardiac panel Hig h sensitivity methodon 07-20-2023 Interpretation and review of laboratory results Normal [facility] Less than 99th percentile of normal range [...] performed using a different testing methodology at [facility] than at other [facility]. Direct result comparisons should only be made within the same method. [facility] Troponin I, High Sensitivity on 07-20-2023 Tropinin I.cardiac panel High sensitivity method ng/L 0 - 13 ng/L [facility] Troponin I.cardiac panelon 0 07-20-2023 Tropinin I.cardiac panel High sensitivity method <3 Normal 0-13 [facility] Comment on above: Order Comment: Venip uncture immediately after or during the administration of Metamizole may lead to falsely low results. Testing should be performed immediately prior to Metamizole dosing. Performed By: #### 2 524-7 #### JIMENA Mark ([id number]) [facility] (C) [address] [place] [address] Urinalysis complete W Reflex Culture panel (U)on 07-20-2023 Appearance (U) Hazy Abnormal Clear [facility] Bilirubin (U) [Mass/Vol] Negative NEGATIVE [facility] Color (U) Yellow Straw, Yellow [facility] Epithelial cells.squamous Auto (Urine sed) [#/Area] 1-9 (SPARSE) Reference range not established. /HPF [facility] Glucose Auto test strip (U) [Mass/Vol] Negative NEGATIVE mg/dL [facility] Interpretation and review of laboratory results Abnormal [facility] Ketones (U) [Mass/Vol] 80 (2+) Abnormal NEGAT JAMES mg/dL [facility] Leukocyte esterase Auto test strip Ql (U) Negative NEGATIVE [facility] Mucus Auto (Urine sed) [#/Area] 4+ Reference range not established. /LPF [facility] Nitrite Auto test strip Ql (U) Negative NEGATIVE [facility] pH (U) 9.0 [pH] Abnormal 5.0, 5.5, 6.0, 6.5, 7.0, 7.5, 8.0 [facility] Protein (U) [Mass/Vol] >=500 (3+) Abnormal NEGAT JAMES mg/dL [facility] RBC (U) [#/Vol] Negative NEGATIVE [facility] RBC Auto (Urine sed) [#/Area] 1-2 NONE, 1-2, 3-5 /HPF [facility] Specific gravity (U) [Rel density] 1.025 1.005 - 1.035 [facility] Urobilinogen (U) [Mass/Vol] mg/dL NINF - 2.0 mg/dL [facility] WBC Auto (Urine sed) [#/Area] 1-5 1-5, NONE /HPF [facility] Yeast.budding Computer assisted (U) [#/Area] PRESENT Abnormal NONE /HPF [facility] Appearance (U) Hazy Normal Clear [facility] Comment on above: Performed By: #### 5 8077-9 #### JIMENA Mark ([id number]) [facility] ([facility]) [address] [place] [address] 86972 Bilirubin (U) [Mass/Vol] Negative Normal NEGATIVE [facility] Comment on above: Performed By: #### 5 8077-9 #### JIMENA Mark ([id number]) [facility] ([facility]) [address] [place] [address] 96085 Color (U) Yellow Normal Straw, Yellow [facility] Comment on above: Performed By: #### 5 8077-9 #### JIMENA Mark ([id number]) [facility] ([facility]) [address] [place] [address] 06883 Epithelial cells.squamous Auto (Urine sed) [#/Area] 1-9 (SPARSE) Normal Reference range not established. [facility] Comment on above: Performed By: #### 5 8077-9 #### JIMENA Mark ([id number]) [facility] ([facility]) [address] [place] [address] 23871 Glucose Auto test strip (U) [Mass/Vol] Negative Normal NEGATIVE [facility] Comment on above: Performed By: #### 5 8077-9 #### JIMENA Mark ([id number]) [facility] ([facility]) [address] [place] [address] 13252 Ketones (U) [Mass/Vol] 80 (2+) Abnormal NEGAT[facility] Comment on above: Performed By: #### 5 8077-9 #### JIMENA Mark ([id number]) [facility] ([facility]) [address] [place] [address] 91566 Leukocyte esterase Auto test strip Ql (U) Negative Normal NEGATIVE [facility] Comment on above: Performed By: #### 5 8077-9 #### JIMENA Mark ([id number]) [facility] ([facility]) [address] [place] [address] 55775 Mucus Auto (Urine sed) [#/Area] 4+ /LPF Normal Reference range not established. [facility] Comment on above: Performed By: #### 5 8077-9 #### JIMENA Mark ([id number]) [facility] ([facility]) [address] [place] [address] Nitrite Auto test strip Ql (U) Negative Normal NEGATIVE [facility] Comment on above: Performed By: #### 5 8077-9 #### JIMENA Mark ([id number]) [facility] ([facility]) [address] [place] [address] pH (U) 9.0 [pH] Normal 5.0, 5.5, 6.0, 6.5, 7.0, 7.5, 8.0 [facility] Comment on above: Performed By: #### 5 8077-9 #### JIMENA Mark ([id number]) [facility] ([facility]) [address] [place] [address] 30858 Protein (U) [Mass/Vol] >=500 (3+) Normal NEGATIVE [facility] Comment on above: Performed By: #### 5 8077-9 #### JIMENA Mark ([id number]) [facility] ([facility]) [address] [place] [address] 03554 RBC (U) [#/Vol] Negative Normal NEGATIVE [facility] Comment on above: Performed By: #### 5 8077-9 #### JIMENA Mark ([id number]) [facility] ([facility]) [address] [place] [address] 43555 RBC Auto (Urine sed) [#/Area] 1-2 Normal NONE, 1-2, 3-5 [facility] Comment on above: Performed By: #### 5 8077-9 #### JIMENA Mark ([id number]) [facility] ([facility]) [address] [place] [address] Specific gravity (U) [Rel density] 1.025 Normal 1.005-1.035 [facility] Comment on above: Performed By: #### 5 8077-9 #### JIMENA Mark ([id number]) [facility] ([facility]) [address] [place] [address] Urobilinogen (U) [Mass/Vol] mg/dL Normal <2.0 [facility] Comment on above: Performed By: #### 5 8077-9 #### JIMENA Mark ([id number]) [facility] ([facility]) [address] [place] [address] WBC Auto (Urine sed) [#/Area] 1-5 Normal 1-5, NONE [facility] Comment on above: Performed By: #### 5 8077-9 #### JIMENA Mark ([id number]) [facility] ([facility]) [address] [place] [address] Yeast.budding Computer assisted (U) [#/Area] PRESENT Abnormal [facility] Comment on above: Performed By: #### 5 [id number] #### JIMENA Mark ([id number]) [facility] ([facility]) [address] [place] [address] XR CHEST 1 VIEWon 07-20-2023 XR CHEST 1 VIEW Interpreted By: Salina Hall, STUDY: XR CHEST 1 VIEW; 07/20/2023 4:05 pm INDICATION: Signs/Symptoms:cp. COMPARISON: None. ACCESSION NUMBER(S): [id number] ORDERING CLINICIAN: ABIODUN OCHOA FINDINGS: Heart is normal in size. There is no consolidation or pleural fluid. The mediastinum and bones are unremarkable. There are bilateral nipple shadows. COMPARISON OF FINDING: IMPRESSION: No acute cardiopulmonary disease. MACRO: none Signed by: Salina Stanton 07/20/2023 4:17 PM Dictation workstation: [id number] [facility] XR Chest Single viewon 07-19 No acute cardiopulmo nary disease. MACRO: none Signed by: Salina Stanton 07/20/2023 4:17 PM Dictation workstation: [id number] MMODAL Interpreted By: Salina Hall, STUDY: XR CHEST 1 VIEW; 07/20/2023 4:05 pm INDICATION: Signs/Symptoms:cp. COMPARISON: None. ACCESSION NUMBER(S): [id number] ORDERING CLINICIAN: ABIODUN OCHOA FINDINGS: Heart is normal in size. There is no consolidation or pleural fluid. The mediastinum and bones are unremarkable. There are bilateral nipple shadows. COMPARISON OF FINDING: [facility] MMODAL Salina Stanton MD - 07/20/2023 Interpreted By: Salina Stanton, STUDY: XR CHEST 1 VIEW; 07/20/2023 4:05 pm INDICATION: Signs/Symptoms:cp. COMPARISON: None. ACCESSION NUMBER(S): [id number] ORDERING CLINICIAN: ABIODUN OCHOA FINDINGS: Heart is normal in size. There is no consolidation or pleural fluid. The mediastinum and bones are unremarkable. There are bilateral nipple shadows. COMPARISON OF FINDING: IMPRESSION: No acute cardiopulmonary disease. MACRO: none Signed by: Salina Stanton 07/20/2023 4:17 PM Dictation workstation: [id number] [facility] Work Phone: Radiology Study observation (narrative) [facility] Work Phone: XR Chest Single viewOrdered By: Salina Stanton on 07-20-2023 [facility] Work Phone: Coding Summary.on 01-21-2021 Coding Summary. CD:[id number] Gh0b Ww+PGhlYWQ+MW2WIWTeB02xs ADnsR8TG6jMLW6GFQRWDLZBX O1KHN1ffMX7SUirW0MefoYc OfujmBCcHX91SGi2VQV5yJge AAvfqN8wyCFyP0a2UrRcZT04 yW66NBewUEZyJtT1GkKghdhe bWFy L7qcCsTrwKPrLng+PHRhYmxl IHdpZHRoPScxMDAlJyBzdHls VA6uIl2oAFNgJUQmrQxbaOSy OiBj o8mnKNFaWUioUI4iuZguQ7Yy nPT6CSEhg8g5Ov94sXT+PHRk AEC8jJduNGzmn696DcGat6md IDM3 cDQeULvpYMR2H61gf5L6WJZq NJGrBIU2uLI9bB2bxQcindld W3SvqTZnMsC4UFF7jLDxxL9z bGln evjogY2nAnw+I78XZI0AFQRC DA3EJrk7F8PuKwtugKM+PC90 PVUuIT94qYPsdMTyn0eqvDb3 JzEw FIMzYWE0vSkwAGkof9CsGTGx S23igFDay8K5UMDwnKckhUCm HlApmTI0eM8iZSndwljif6wk dzsn Ymghm8hzxg85mZ73P31lOIju TNWdQFS1KKVeQBAxdWdyco4n qI6yZg6+DYrft4jug7tesEu2 IjIw IISjohNkyRjiWNH8w2HcOt93 G5JkzRzvg9AxVwk5bf58wVGb o6D7xTM2EZefCWUpdT0cNPta ZnQ6 SXUsEqEkpJ22bEBrYMrvDe0q bXgloBpjWD4xALUbclohDKOh tT6nVSFjwYWkyVtoDE9wYPSj bjtm l451JcCzTDQ0IMBmuJWvA5Fd xA6tQgHaYRHuWRYhW0XheZCe MNbnY829NEuqVzH0ICFefnSp Y2Fs FVVaiLsxUnY5p8A4Um8Fh8Fz vclmXQX3QUkeJOEqAgN6LxFo EkH7W8XpKnv6OSSagQrkBX0j J3Bh JZSrvosqspoyiMR3YKOcUDWs qP70xMOcGRroFd8rk2K7n028 TVOwOVWfkT37Ml9vxItdBTHh dCBU oM4fgeavi8ernmnaNcIkDYUz RSt0YMz9YYHukBenFjNqQWX2 IcS8DUA4pLDhsU9fgFwmqyze dG9w Oyc+K26rvS6sMQH9IIO4scqf KBHupjIxOO90WR08D8RoKcgg dGFibGU+OLZesuMsvMobLV5c YmFj o6qen1AjHOveP0WkPUVaTLlv Llz1OZGuUHP3wEI5xY8fNTLx CGebw7I6zIW1L3HkzhXebx7w b2xs OVYfWTmmA07nzBVla8U2LGNq gLO7OCNmlErtWwYlxT34Ajf+ XLKkzBure6FaBcnun5erz8ww dGg9 RpJwZRMpyvFhgNacJUF5n8Xl Jo06C47gEHodQIJbYREaNNTh PGRgsEeyjl6ehK9eFp3+PGNv bCB3 xXH8wA8iZXEwTgX6NRlbU571 PsHitOHmVnfcj7aqi9jqiSj8 JmZbJLRfmwPcnXmkTPO0t7Cn Lz48 U94zGNquZHErOIDyNLIkHJLc gUtcld0swH7yCo3+WA1ys9uz fh58aL99lKC+XQBxSMV4jOjp PSdw DEOcjJ4bATpnCoI6TRPgXzZw nN25rNXqJWmsQe1lbAvdoPhe KK0jNUYmchqno430OkPpk1qr IDEw oCWqIBpaNDQ1V62ek4Z7BEIe ADXjJSP1oSB8iL8rqMgdkjpu bGVmdDsgdmVydGljYWwtYWxp Z246 IHRvcDsnPlBhdGllbnQgTmFt CHp7P1NiEbo8JGWugTtjCY2g bFWyIVsaOe3ezHupuUuqSU0j NTBp zqkib825GaWdz2cdCJQtkKEq FCgpFZU1N74nh1Z8MBYfVHEb EUS1fNI2zN5nlAmpkeyurQIk dDsg qnRbdDlcTSowXXgjL437NRMh aZoqJcMipgMqHAFodJC7IC76 PG84iEFpa7O8nTH1J2SwZFGz bmct qiswbEH1HIEtLYZimJ39Hy2a wScgEc5dUWIvUYO4OSYveEVz O1TjlL6vKbAtSCMzVVTbC5Qn eHQt TDqyF489ETkcGgA3CJKfawFq H1ToBSCurAobGtM6i7N3Lr5X X9F0ZJ27XS67yFRqq8E1iLW2 J3Bh RQAregloqeulaJJ2ZVDfCVNt cK43Wh8saYhnRo3hVFPlULQ6 DNCttKKfT2BovX8eMtWrSFNl MDAw L6AeaQJyQCsfL596MYgbJfM9 TMCumbXeE2MjJFCscFlxUsX8 k3E9Ge3ROCm4ZR38YG13sLUv c3R5 zEJ8Z3YvAIKnbwelcsjmeSX6 ILLrNDVwhR96Eg1ysHmtHd4i BREvQZJ5HTJxdLGiE2WgyL5g OiAj NAPmZOUnW9OvdQCzIMdeG963 USxqVbW4JNJyfoDcJ8EyANWg sZsuMxP1o1T9Dm1ENRXdZV92 IFR5 hYV7RD16RS65X2MrGwidoOHz bGU+PHRhYmxlIHdpZHRoPScx FPNcSeGnuUsbKE8tCl0tJQXn LWNv sVjegMDfZtJjn6arCJJeRLog MR6xzXxkE6HqkOS9CVSvr2j2 Ll16S24vX3WucYH+PGNvbCB3 aWR0 nP2qYuDePbR7OCvuZ189YjTr dYJxQhntz9wuh6gbvJi8BfH0 QJJmlpXmvYhaSEM0p6NzBy60 Y29s IHdpZHRoPSIxNSUiIHZhbGln jb0hcY1oTz9+YYFxwKZ4iAB6 aI1oXrJiFzO2CEnrR778QaAv cCIv Hhdda5kpx5rzuIp0UaFjDEHj lzRtoYccXUS4u0BzJr20X8Dz sMxlf0WaTep7ob01wZXgd1O0 bGU9 W5JhNEKxzfhiwWHhyOccVG5v VTNkrvesURFfnJ7aDELcG1k0 WsVaKpS7GRzaZ7RmaoB1SMVt cHQg VCxyXUP2V35yq1Z7JYBmPBWv JJD0gZY4vM7ijZipgujulLZx oGkpejFmcGwqDGnwRTkvJ259 IHRv uFhkSOHztU2dTHCrmLNnhQlj NX7kIBJxkmmeHgASZXMPRIXk QLHQOMCJIPoLUd82P6MlRfn1 ZCBz jOylLC7ooAJpXSeoAs8jvJnf hIjhJI5cPCBmybnlDJZfmQ0t KWTstHFncEsrSU8iZGNrzclv b250 XrWqFQJ0WOIirVJwO1KvnP0k AdRpOBZcVJVfP3HheTPpVYph E056EYvbPrU6WAEkgcLcY6Dd LWFs wKrbAfQ0w0R0Ex3mJc8gJb3p RMq2SS67PC92nRPog6O7aRL4 Z9XgHFRlhljdrhjpbQO4PWHc MDUw qF03dIGxXTgzDt2se1P1r013 YAApEUUbxU05Ol3woEfwRONj rYIWbD5hjiwkr3upgzbsDlBn MDAw JTg4HIm4MGLnvVphYkOzHIA5 DwR7ZCX1wUWkrR0kuRypbhdx pN5jNna+HqJmJVUyjmI7Y6Zc Pjx0 UFTzfNoaVB7tiRQlWEdxFc8v aRfahEizPP1aFATptlsjAVSv eM2kRQJajMFhbWnsGV4hSLXc bjtm q734MeNpPDH7OIIrpUViV7Th jV4kFsFhNWXkRVKcG3JwpPVt CWlkB607SOqcNdT4NNAnivRt Y2Fs TEDfvHuuKdL5r3E0Rv5BKO4z wYQ4S9FaDfu3VKRifJexAX7e iWSvLAqfLv3zmBfnqNvoTQ9y NTBp rpvtIVKmgP1wSDPfmRKhaWqf PC8pTIFvlkyuz693UbPwXAV5 ZSXnhOQsI5QzbG3bHyFrHKJe MDAw Z0BkwEDvLCpqR667HBxjItP6 IEWzkwXzV5EjLCEksYfyJyB9 l0Y2In3QuAQkQJVsCU69XA48 ZD48 F1DzLgeiaVVodKQ+PHRhYmxl IHdpZHRoPScxMDAlJyBzdHls PS7fHs4mTXFfKFZmnQhwkKZa OiBj h4ctOMBkYDboCF0emXcmY4Fx xRF2CBXxw3m4Lq45O28yI4Jy dXA+XVJfaSU3hDY6lR7gBuRd IiB2 LAvmN892ZqCmtFHzHitqx5bk o5wzpTp9YuPkCCZuhwZujIwh KXG4c2SuId51R15bKDidKALd PSIy GMWqJMAccIgsob6diC9zPc8+ XAElyDS0wBH1vL3rXxUrSeM2 PWhbR975PvBwrYYkUtwjB82i Z3Jv dXA+FBJkVtj7YCLxrIivEC1h vVJmHWniDp7gCMQ7ToBoKyDe PFbiX6KzLUOdwbjcparbuSO1 IDAu GODsbJ67Uu6woKtqCt3vFUTr IQW6MKTyzWMcL2IlkU6aQzJn XQMwHFThF7EclFXtRNyoO442 IGxl YqK4CAUotmFwA5BiDODfiSwk OqC1e8B2Wz5TmDbnoFBjYJ4w MzNpESt5W0EiNuq7GSKiiKcg ZT0n pPFwEVlmGi0wkLqnuBvjSX7d AIFaiglqa812SpRnt7vdSPHw qBXvFPjrCXM8D74vl5E0WXAe MDAw ERV8iFQ9hA8pnJfbjngnaEMt eTbjybUbiHpiHXmwOJceW155 IDUbzKnaAtPBNii2Y1ApXgx6 ZCBz nIzzQS0inXNoNUxbLu8byDof sBpfXF2iJJBlvbqlk343CnDs y7wtYJEsdNKgHXsiBEM6O87d b3I6 PLHlRFLlCTP8qQG6mQ0zbRva bjogbGVmdDsgdmVydGljYWwt XXdhG822NVDuvEnxPy8BOia1 L3Rk Pbl2MWVpuQubGS5yeKEdGBxf Ul0ubPilsLhbHT9zHWLexxih w399OgBpf6vxHCYmqRTzCCqj ZXM7 P15cd6A3ANHsBBHbRLQ9gXV2 lA3bcHtmwnfuhCCfuYkvbiNh iNglUZadKNozZ860LZOxkEgu PlBh eWVyOjwvdGQ+GF10ze19T5Le DhgwPon3ETTnQTR2qEL3lG8o XLLjRZsdm0F9bWJ1F2WmnoAs ci1j b2xs (more content not included)... Normal [facility] Coding Summary. CD:[id number] Gh0b Ww+PGhlYWQ+XB3YPSEdO52pm QZblX7DR8pITR0ISJGDQDWKT U8JEV6vgHF0YJypH8XffaPy YosxyPWoBI37EQa2PCD0nWjh XWxxwM8zjTCsL0n2YlDlHP67 aT25ZDsoLCByEgJ4HpMxgiby bWFy Y8cuCkIqtCZzPqi+PHRhYmxl IHdpZHRoPScxMDAlJyBzdHls WT5jLz0aVZMzSLKbiPrcdWJi OiBj f0soYONmWKuvIZ6nnVquA5Ts jYY2FMDme5p0As47hXJ+PHRk UOP0hGbfFGnli478VcXnq6ph IDM3 hGMvXDflFMQ0K46hp3U8PIQa YVGjPUA3lED9fO9pyMroinjr W9GfwITeQuF9BLK8tQDpiI9m bGln axmgcV9oBck+B54NVR8UWAVN CP8DMhx7Q1OdCkyjqOA+PC90 JSPuCD00dEUcrRSlu0ynvAt6 JzEw TZQtXLB0lVoqTVlkb0PjARRs L96orISuq1G6IAZlbAgzcKRk QaJyuFU9aB0zFEdqwajrl8lh dzsn Yjmyx4sywe79yW88F45cCXeu IDGnNDG0HHKpMOChvVamjj7m dU2sNw0+FVfbj1hzq9fnoFm2 IjIw USFvphGmbEybJMU2b2MlWu63 E7JjnGcfs1ErDzu2pd81zBMq g2M0yNA2OHzqJUCirC0iXGcy ZnQ6 WSCqVlXryT31zYPdYJooUg2c bDgxkBvkJG1rUFZbooluIOEf vP1pOAJboBSxyNwyXN7hKBAn bjtm k850QeWkFMW5ZAMykWEeF8Qt tI7vHmDzEHRnCLTdW5WaxSJq SBciV732PUnmQlM3MBEawdJn Y2Fs KYYlwHyxNkE0b7G5Uz8Tb9Zv ksrfXCH1LRcnGPMtZtB1IwKn IrY1J9JvWdd4AIYlgNleZO3p J3Bh TXOouhjrgynlvJV5LXDkUBJf kI02rWBjVYluZb9bq2Q4b988 NNHkMVQsyB54Dr5pgUieNONx dCBU jZ8tpyosm0uizzytCoKaRXHv PBv6MIq6UTOiqVuxZvXuXAF6 VxC3GZJ8hCVexY0udHvilwrl dG9w Oyc+Y12fnB2iFDX1ZGE5dobp GNQrtdZuJJ99CI55C2VzOnuy dGFibGU+SQVijuKmkBjiMZ9t YmFj l9les9CoNOkaC6DmJFZvLWaz Grc7YDApVRV0gBN4vX1eJXGb UCaqh5K4yZH7W2SesuLjin4r b2xs HEDbNAiiQ25lgJWkx5B8PAGt wOF7NSWohTgiHvHwqJ58Ydv+ UBDvpDldt7TeCiwgo2ete9wd dGg9 PtBaLIVsfeLvhPgyMFK4p6Ki Jf33G04oPZyiIJQcCPKfVTQf GENpmKizza6dmP6pVf0+PGNv bCB3 nMT1tJ7vGHVgPcZ7GHquC950 NpQmaTQqJpkbi1ifp1grdWl9 MgZyGSMpbzRewRuhCQX1c4Ck Lz48 O08gABxdEDGpCOSrSONdQKMf xNwjik2reQ2sLu4+TP2qt7cq nr44mH98aVU+ZYJlMJF7sBft PSdw ZWVwcA6yCSllZlW1STOqWyWk vY13qWGaORpnAk1zbLrwqGdh GK5bJVBnbazim110UrJeu1hz IDEw pDQgGLgnKJM2Q29vl9P7KYUk ZODaBXJ8uMS7bW4aoSvibcpg bGVmdDsgdmVydGljYWwtYWxp Z246 IHRvcDsnPlBhdGllbnQgTmFt IKg1K6BfRhj2JKQxxRopYK2a dGUjGZnpYu7hpNtrkEuoUD4n NTBp gfxuv262AfHrs0txYUMfjGKr HTqgDWB4R46pg0D5VTPsFPNu TFE2tFC0aR9daBoygmtkiWMx dDsg grCqjNtcUIhiEZbjW982EHXn wYlmDpSmwnRvXUSwiMA7NF23 QM20dZReb6G9bFQ3I1PvPTCc bmct xonepQI7LGXuVHYopR46Gz6m lPzyJu7zQYQyGKA2SDMmeQGu F4JhoV9pWzClVFZjPJEqL3Ng eHQt PZxlS471HKrsBlX5DSVjhhWe G2BkSAWqpLhoLkK5q3U1Sc6H X9Y3XN25UZ41jYSzo3D0dBB5 J3Bh JNScwypqrycjoEP9QQWaRWBi vF24Jb6uhYqlHr1vMBJdZKJ0 SLKfqSPhM7CjsH7sArDpMZJz MDAw O5SzkKCmGDyvQ217IMlcXzY2 KEAikmBqZ4OmYLGrzMgnAbQ1 o3Z6Ii5JRPs2YT91DB30uCOk c3R5 lMR8O5OhXRLecwcpbbhfgLQ6 GFBtJPIgaD39Xh3cyCiyMm1l UMAoATW9CYMowTEnL2BlzL6j OiAj WMXmVTFrP6KthWYsCOhsK937 GMrhJhW2ETGsiuSiW7OrSYSt vYsqSzB3p9P9Zj0XBTWnHS33 IFR5 sFD3YH22RE39H6IlXmmjqKJq bGU+PHRhYmxlIHdpZHRoPScx ACGaYgOifWtyGI2zAb4jNTKq LWNv rFnyvEQrTfRjn5agXIDjPFnw HT0quTybU4NsfMZ4TKTqx3v7 Ee06C83zW3VeuQK+PGNvbCB3 aWR0 vT5lYcZqVpC7QSlyX599LpCv eZMpCcavk5hoe1yubJf5CtN5 BQTjqiPmgMryXHM5g2RoUv82 Y29s IHdpZHRoPSIxNSUiIHZhbGln hn2mdP3cPg0+GHMutAJ3dTC3 kA9zZaBaOdD3WXdpH361GvFz cCIv Cogub7lyg3araIj0XnPwXNIl hkFaxYykCDG4s1YjKv07S7Jp jZfit8EkJdf5nw66hNUwn5H4 bGU9 I5LuLPSwvxflfPEimGnxJQ9c ZNIycplgNQBmdL3kKNOjQ1p1 LfPaLxE5GNlzO3OauoS6FXGz cHQg LJdtHCL8H88ap7W7FGQzOSHg DPZ9iQP6wQ9jtVzcfnwbtOPc uXyftwHtdOzgJAndBKglT878 IHRv rZleESGgiA4xKTXtzKMleQwk AH1qXVTrauydKrRTAZOIKAHs RPBNZEYVEAlCBv80D2MzIqg3 ZCBz yZsySD0neIRoVMrhTw6wlMvv rUqqAN9tGCXocvjoJGUkoL7e BIYxcGCubTziFZ0oMVBchymk b250 ClOgFCC1TKKfhRVfH7BhgI0y VsKkEFPsUAMvE8SusOEyCYwx D753IGkvRhT9ZGEyemPbK3Tq LWFs xDyuFhT2o2K4Dv5mTc8oYo7c HGz2ZS81RC61aDBbk9Y7kUG5 O8EjDVYoxxsmhghlhQT0GXYw MDUw bB25fCKrKDqcAi8ml6Z3f761 JKStHDPnnX57Vx1ejXvbQKIp xPTNmB6ouozkt5atyirgAqQe MDAw OTq6VPr9RGVtyLhqFgPkKXN9 KxW4LAQ0yJWogO0yxIzbelma lY0iOtj+XlWvRMAcxjL4K1Hz Pjx0 BZPgdSgrLU6ryYYdJVdwDr7d zCmdjAltQW5vXJUgvymcIGXr yH9cQNJymBRzgZclWL6sPDNu bjtm v304DcHdZSJ6ATDhkYTyB1Ky bC1dAeDyXSOnLOByE0AxeKNc TGqjX153IKcgJxT5LUJwrvQd Y2Fs JCRosVxlXvY2z0N8Am8WSF6p qHU4O5JkWdl8FIMwlVxuUT0w ySTbGGgnRd5ecOslePpvMI6m NTBp vuzrXEKdkT9aRHLgtMEddWxj MG4xTXGxyswdy680AsDnBCM6 QPVpzYAfK3IvxS6fSyLaQTHu MDAw B9PcoMPwPMzhA595XWjmCtD4 BBJrydDaS6VwDXYqzDeaDfS8 z1W4Cl4MvZHmZXYyXY62MA57 ZD48 C0RyZcfwzBCpyDE+PHRhYmxl IHdpZHRoPScxMDAlJyBzdHls ED8lWo8qWRGwKGNwuSijyAPv OiBj w4iyUUXsKHobSN6xgDtiH2Aa xEL7BPVsu6w6Wo18T00zF3Wm dXA+UZEheEP8uFT0tY5vMyRi IiB2 REgtO909OeTwbCVbPirue4up h8nneBy2UaWyFLLwnpGryHzh PSP5m5UtTg76W55pKSosBOAl PSIy PZYmVBJsdQwdji0naW8cMo8+ RXXiiJA4jDI1zT6nLsJfEfJ8 IRhpM794YzVurQEoTostT21l Z3Jv dXA+BIItCwg4MLTtiRskJZ8f lACwSEknOm7kOLM5VtBlTfPb BIxlR9ZyDYOafqxqakpglUW5 IDAu SPVpqH21Xx1wwJqiOo0jXLGr JFX8JQLirZWiK0RlaB8tOeFz ZSKeAJCvY2IvhYQzBDwzP253 IGxl YhA6KSBxdvRiQ2PqWZUybIqz KiV3r7Y7Hw3PcWvfdXBcIC1q IlRgMXr2Z3ZyJqa9DHZddEvr ZT0n lHBkSKxkPi9ryVumdCijWC4s HVMmfvxrf978NjObk6fdQXEa hIBxFRjoFCV1C63oq7F7EOBq MDAw DLH8eCG3yR1yxAorxprilPDs cRuypoPylBrmKCooRFsfS271 YOWhsVkpPrETOyi4V0JnIyq4 ZCBz sZqyVB3zzRZrSOegZs2fdOej yYfxXX9aJPPlkcxuw227VqWk t9anTQZmgNTqFLatRNY7H05q b3I6 SIQkAXJyNIJ4aDQ4pS4pfVek bjogbGVmdDsgdmVydGljYWwt XTekP236CTJecNouWe2YLyc9 L3Rk Ghp3SEYsmDnjEF9ggJGcWUoi Bn5nrEmeoTxjFN8bTVZhxvxm o179JgWis3ytCPYjxCBmEGvf ZXM7 T73md9K0ACIyFZPpIHL9zFA2 oO9wdRzjuzuhzHUddHlpstCu nSoiBWayKBsrZ312HSYipYuq PlBh eWVyOjwvdGQ+UX27tc53V3Cc UgpxYmo2NVUtGFR9nQP5qO2h KEJwWZstl1U7nLK4M7SjeiDn ci1j b2xs (more content not included)... Normal [facility] XR HYSTEROSALPINGOGRAMon XR HYSTEROSALPINGOGRAM * * *Final [...] nondilated tubes. No spillage. IMPRESSION: Please see MANAGER OPERATIONAL report for assessment of real-time findings. Chicken Sexer: ANTONIETA Transcribe Date/Time: Jan 20 2021 1:37P Dictated by : DAYANNA LEROY MD This examination was interpreted and the report reviewed and electronically signed by: DAYANNA LEROY MD on Jan 20 2021 1:45PM EST [id number] [facility] Rubella IgGon 01-05-2021 Rubella virus IgG Qn (S) 20.80 [IU]/mL Invalid Interpretation Code Immune >0.99 [facility] Comment on above: Result Comment: Non- immune <0.90 Equivocal 0.90 - 0.99 Immune >0.99 Performed at: [facility] [id number] PhD Randa Ochoa Performed By: #### 5 [id number] #### [facility] [address] [place] [address] Varic IgGon 01-05-2021 VZV IgG IA Qn (S) 207 Invalid Interpretation Code Immune >165 [facility] Comment on above: Result Comment: Nega tive <135 Equivocal 135 - 165 Positive >165 A positive result generally indicates exposure to the pathogen or administration of specific immunoglobulins, but it is not indication of active infection or stage of disease. Performed at: [facility] [address] [id number] PhD Randa Ochoa Performed By: #### 5 [id number], [id number] #### [facility] [address] [place] [address] Consent for Treatmenton 110 Consent for Treatment [id number]#1.00CD: 127 Normal [facility] Consent for Treatment [id number]#1.00CD: 127 Normal [facility] Free T4on 01-03-2021 Free T4 [Mass/Vol] 0.75 ng/dL Normal 0.58-1.64 [facility] Comment on above: Performed By: #### 2 [id number] #### [facility] [address] [place] [address] RkeG1ruv 01-03-2021 HbA1c (Bld) [Mass fraction] 5.4 % Normal <=5.9 [facility] Comment on above: Performed By: #### 5 [id number], [id number] #### [facility] [address] [place] [address] Physician Orderon 01-03-2021 Physician Order [id number]#1.00CD :127 Normal [facility] Physician Order [id number]#1.00CD :127 Normal [facility] Prolactinon 01-03-2021 Prolactin [Mass/Vol] 45.14 ng/mL High 3.34-26.72 [facility] Comment on above: Performed By: #### 5 [id number], [id number] #### [facility] [address] [place] [address] TSHon 01-03-2021 TSH Qn 2.09 m[IU]/L Normal 0.34-5.60 [facility] Comment on above: Performed By: #### 2 [id number] #### [facility] [address] [place] [address] Vitamin D 25 Hydroxyon 01-03 25-hydroxyvitamin D3 [Mass/Vol] 58.1 ng/mL Normal 30.0-100.0 [facility] Comment on above: Result Comment: Vit sarabia D deficiency has been defined as a level of serum 25-OH vitamin D less than 20 ng/mL (1,2) by the [place] [employer] and an Endocrine Society practice guideline. The Endocrine Society further defined vitamin D insufficiency as a level between 21 and 29 ng/mL (2). 1. IOM ([place] of [employer]). 2010. Dietary reference intakes for calcium and D. [place]: The National Academies Press. 2. Carola MF, Pita [place], Donna HERNANDES, et al. Evaluation, treatment, and prevention of vitamin D deficiency: an Endocrine Society clinical practice guideline. JCEM. 2010; 96 (7):1911-30. Performed By: #### 5 [id number], [id number], [id number], [id number], [id number] #### [facility] [address] [place] [address] Coding Summary.on 11-21-2020 Coding Summary. CD:[id number]:[id number] Gh0b Ww+PGhlYWQ+IH3HHWOjK38pv SGeoW7YI8yTAK3EUIBTHXNKJ Z6JGQ8fgJQ3EGedY5GlzxZd BygmmPFbUK28NEv1AMO0uKrp JGjplY3stRFmE4c6YkAbKS83 rH16GBhqRNYjPyN2MnFrhpaw bWFy H6naHxOmdYZeFde+PHRhYmxl IHdpZHRoPScxMDAlJyBzdHls US8gBb7vEDAnJOMkcOaeqUBj OiBj w7gzTXDdJPfiAX8gmUukI0Tz pAD1NOAne4u9Cr06oCT+PHRk PUM6vAjnNLnge196XgZwg0rk IDM3 mZMiOKyqZXR9W61uf8O5JYBd FNVePQX8vXE6zY8aqUbgcnqz P0FjiGCzYlZ5KDH8vVHybW8u bGln pbbwfK1wGfg+F36IFS5TQWAW PU0OGuk6A6AqAngdiBM+PC90 BGYkDY62tOWgvDAvt9wszMw6 JzEw KAVgMAW3rItnSOuhz3UfLYYo F56ikOPuq3U8WVEadKsolGZj MrRjcEY1gA8hHOgvckdns5ek dzsn Rrtyq6xxoi79mM11F43cLFpa VJYqXQL3CVEoLMCivHjeiz8e eO8kSa9+DMimv4uay4pewVr5 IjIw UNTiiyIhrXlsTWV7m9UbNz24 O6QwgZano6DdAby6ii92uCOi t6W0iAB4XNlvQEHpoI6vYBeq ZnQ6 FDCcJoRjvL63bMDaHHgrVw5c lYvhvRebLA8wANVlbhetXFXv dC6pXPElmRLedImqYM2xPSHm bjtm y372QqRnBBW9COImqNGqE9Kv vB9iWgPdMNUxUYWaX3CtdKOj LTzeT561YYgdNtK8RTQfwdKl Y2Fs DBZxmHgxPxG4e1Y7Hx0Vz9Ie nctbCXG8JBpzOTP8CmY4RkXv PyQ6U4SwPst2DPOlaOlgKR3p J3Bh WPKifnfplphlaJT8XYHiBCTs gJ78nNUwVZcyHj8xb0G2t343 WTDuZCPjwV56Jc3msKazUVPq dCBU gI0btbqnt3plvbvnOzCcRWNh AQg6LLl8PAKgqGpuBkXrJGX6 EfT3XHO8oVObiJ6xoSabeadf dG9w Oyc+T47rrS7hNIY3KMD5rxrv IBNrcuWmEW60FC76P6YqDzwr dGFibGU+MRHmtaHzxJnsWL1h YmFj h3rug7NeYYmuJ4MbQLGmGTqx Lkg4XBVxDRB9rMN8sG4xUPCg DQjvq9Q0mRI2W6WbfnUiek9m b2xs PVFvJGwbP05uxRUek9S7YTQg qCS7EMDheHegJmWygO43Jis+ XIKosBpvf1VnDrgyr5bfe0mn dGg9 AsMdJRKybtWunKjhOCU6j3Dh Mb43B37eGFpeJIPaWKMxUAQh MZXbnCtpqc5qzX5uAp9+PGNv bCB3 nUV1aT1eNEGoBaG9NOupB217 AwRvvGUbIhqzx0nhu7lfeUx0 YkXlFIRuorTbgHwfKNO4w6Pw Lz48 C50eZVyoELJkAQTqYGRgDFYk fZgezi7ypB7dTj9+AD2kp8id nk90yX33mZJ+FJNzYWP8nWqt PSdw CNIkaD1mOCtkVgG7PEYeAxQx cR31lHDwXHhxAz2jrYaquViy BE9gALOmnnrde045ZqMdb1nn IDEw pWQmULicOAN5R53xp3D7TOPa AACcTLI5qQR4mW6mvVhtjktr bGVmdDsgdmVydGljYWwtYWxp Z246 IHRvcDsnPlBhdGllbnQgTmFt WWh5H0KmZqk4QBZviLynWV3q uSNwITffLh3woOglcPuvWC5a NTBp twaeh023WeXis2wwGTQnkMRr VPpzCQC4M97ig0K9YBGfZIQf XYH0jTE5fU0tiOneindynOHp dDsg elZywGqgOXcxQOusC436TKGj eRkgYeOemkIwSJXlxIH0ZC69 ZU02oZSgy8O8hAP7J3YtCNSv bmct zgvzvMX6TCKxIBCpjG29Lm3p eJugUb5oFTLqVEP1YSNvyHBp A7EtgY8fMxXzINVrKVZuZ8Ts eHQt MOxxP742PNyuUrL5FBQkkuUw T5IaSGPnlWgfZcD7o3K4Bb5S J8T9TK28UX36wCFqi3F5qCW6 J3Bh RFZpwsmiqxrkrOJ1AJMmFENf vZ33Qo7xsTpzMg1jGYYoSBP3 AGTdiTCfH9RhdZ7eXsZjHWUy MDAw N5HpvGHqXSayB811BJofXnX2 IOGvzmKyB6WoPYGmuTlnOvT5 d6X1Hu2GUXh5PL81BT68qNFn c3R5 yBQ1A0EuMJQsebkmggworIR8 KPSlKRTzvV69Xr1bpAyeZp8j IZFuLLE3WPNcvDBtQ5VjvQ7d OiAj WVOoDZMvB4FdtLAeLCijB674 EGboZxV8OLPyigRnQ4IbLIEt dWriFsD3u7C7Lu6OWLAqCI50 IFR5 uTZ6CT35SL08N4ViKktmcHNo bGU+PHRhYmxlIHdpZHRoPScx VUXlPqHlhDwlHI4uOa9cXVOo LWNv xTwoyNTiOeFwu9fvGUIqYRfi ZC1jhTfcY4GxpIK6YPAhf6v3 Ng81S75uD7TalHF+PGNvbCB3 aWR0 oD6ySoVtVnV8VBeuH213WxVy yMDzLtbzl8dui4jhzJa4CsR4 VGNcrjTkmBqpZYY7a1XrZq54 Y29s IHdpZHRoPSIxNSUiIHZhbGln xo7afR7tGt9+HHUadNM1eOR2 sB0uYmEtCfG5WYldX763CxBn cCIv Qgrjp0mqx0vfcZl5DgFsULOm ucSofZsrDJY8u0HvNo55T3Gw cQgdb5AtWbq1yu22uPCjh5H0 bGU9 Z9FaLJEwlxpjfETzqAdqSE0l APOfnzmuXMHsoB9eUPToY9j6 EiGhWlW5OEwnM5QprlT1SJJc cHQg BAylANL9V65zh3X9SRClRIWp DEC9cES4fQ4efDcljvpcqWBu mAmbuwWjkCsnKKfzCNzoF313 IHRv oIjbSEIbjP2nISFjuFEroFbk DU3rMOMhyleoEhZCWLLWZOHe YWMTMXLOKKfUTb89I9RnMwr8 ZCBz fUcdUT2jbNOhNDrgId9lnDah iKyyWM8aMPHbckljUNKihS7u VZWjuWRlrCclSU8gEWQppffs b250 XiYmVTZ5NWTwtWGdE4DulW1r XhQzRFLwOWKwZ0JxxXPbCPwz A824DCzfVaV1LZCtmiFgU4Ut LWFs zTepPvR1v0Q7Ig4cYh5eOy5z FQp1FJ49TD28vQThz6P2hOL3 A0KhVMJrxrdwrydgcEX7TYHi MDUw rF93uZRvPHxaTg7vi4X4u090 BVWmDAWpvO63Oo0xnDulFQIr pSVMlA8upnhsr8osfgciAmNu MDAw BLl9JKs3DJQrrOqeIwGyRVD2 KqM0KBC7iCSxsF1nvIxnwtxl aX7jKuu+NyHzFDMxpcR4Z8Yk Pjx0 BAUozTtfNS3vfPBrUFpuOy7i bDpooOcaLZ9iUWLakzqwGHNk aN3fDGVijWYrhMwlRD4mKGYw bjtm x944WiPmBHV3BQOpwULrP6Cw vY0nOiStVUEgPIFrZ4VttGHz DOxbK297JLgdZkL5IFWvpuJf Y2Fs EVIvaGveKhJ3i0T1Is7NPX5u kVU7I1UdMkx6PHOqbSzzZR5i gYLlSCduRk5ddFwxyUbfPW4z NTBp lhszFLDunG0uXTMwlTRmgSia ZN7lNNKinmmsu520RnOuPBE4 IYEocELkH4FvyE3bRkGgKAYg MDAw E5RjeHToZHbiG334GXbjSqY9 JEWumeUeA2LdILBkxHrmGhB2 b5M0Ci6ZIENbFSSfjIRcEtD1 L3Rk PjwvdHI+GC97VIAcZQ66tMMw eWSgl9gigEg3TtSrCOPpPOV8 sXpwDTvsz7MaHKGjO95fzQKf c2U6 NXZsdPlxhFUbHqGzfYD0hU5q HGfhdlkxr3mdqmrfLauvf6gc mu70lP13H28cPAuqXJBrPOJc MCUi XXLdtWptba4fwO0wFy0+PGNv vRC5oYV7uP5pGfGfEuW0ZIgo S771IxCaqFMlRstqo3gtz2po dGg9 NxZdTRPeayLtjBdjBGU0g7Gr Rk57R37wWFmmGMTuKMItPNFv QIKrePrzqr9twE8jNw0+PC9j b2xn gq27nM52nIG+LCDiZXY5gGbf HAffKAXvxI3jLPrqRvS4VEKb KbWgkK64eQUiMEayAn1quYlk dDog QZ3yQXRyoqkhj400QaRno9fi LKQgnDJoQAbxCYG0Y27zi3V3 DJYiWFCySLY6nVH8pZ4flGdh bjog bGVmdDsgdmVydGljYWwtYWxp J043KOPymSyjTaSgrDDjC3ve gbPFCW4yVfrsfFE+PHRkIHN0 eWxl VLoxXPNphL8eJVUhL2c2QlTw HbB8AKrlV4IdndF5EPFcfHSj YHRdhINYhV0ftuzkg9qnsztt IzAw RTKgYGn2NCk9TINrnZsnBdWk AMF3YjT5AZI6mRHquG4ynFnn zhhokK3nJkq+RklOOjwvdGQ+ PHRk GUS0aXozXAzqECLwyK9nXNQn Z0f1XxTpViF8WUqcN7FitiQ0 UEHazLKvHPVdbSZKhN1kntel b2xv airoYgVnAEQgFUs4AUs3HIXi qNxdVkKfATF9JlT3SBH4vNOs cD1dcUzowfckoU0oIhz+TVJO Ojwv dGQ+NPRuHMI0nVlyAWjaHJTn jX0xMUSvX9s3RyFvBtO5ZIwd N0EdkuQ3KZCmvERlJZNbwNGI aW1l ilcsc2mhmoadJjPoFPUaUXh8 DIu0VSYflJeuUnZuQEB5GfI0 LJW9zMFebO4anPagtvmihV4r Oyc+ XBS6RJP5TE27ZH00X1DdZgvj dGFibGU+PHRhYmxlIHdpZHRo MTalTWQaGjSrlCleEL5cMk8m ZGVy LWNv (more content not included)... Normal [facility] COVID-[facility] ([facility] [place] 11-05-2020 SARS-CoV-2 (COVID-19) RNA REEMA+probe Ql (Unsp spec) Not detected Normal Not Detected [facility] Comment on above: Result Comment: This test result should be correlated with clinical presentations and medical history by a healthcare provider to determine its clinical significance. This assay was performed by a reverse transcriptase real-time polymerase chain reaction (rt PCR) method on the [employer]Star system. This test has been authorized only [...] or revoked sooner. Performed By: #### 2 [id number] #### [facility] [address] [place] [address] SARS-CoV-2 (COVID-19) RNA REEMA+probe Ql (Unsp spec) Pass Normal Pass [facility] Comment on above: Performed By: #### 2 [id number] #### [facility] [address] [place] [address] Specimen source Nom (Unsp spec) Nasal Normal [facility] Comment on above: Performed By: #### 2 [id number] #### [facility] [address] [place] [address] Consent for Treatmenton 0 Consent for Treatment [id number]#1.00CD: 127 Normal [facility] COVID-19 ([facility])on 11-02-2020 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 NO Normal [facility] Comment on above: Performed By: #### 2 [id number] #### [facility] [address] [place] [address] ICU NO Normal [facility] Comment on above: Performed By: #### 2 [id number] #### [facility] [address] [place] [address] ? Unknown Normal [facility] Comment on above: Performed By: #### 2 [id number] #### [facility] [address] [place] [address] Resides in a Congregate Care Setting Unknown Normal [facility] Comment on above: Performed By: #### 2 [id number] #### [facility] [address] [place] [address] Symptomatic as defined by CDC YES Normal [facility] Comment on above: Performed By: #### 2 [id number] #### [facility] [address] [place] [address] Physician Orderon 08-27-2020 Physician Order [id number]#1.00CD: 127 Normal [facility] [facility] 03-22-2020 , QUAL Negative Normal NEGATIVE [facility] Comment on above: Performed By: #### P REGU #### [facility] [address], [place] [address] Juany Mccarthy Covid-19 PCR (CVDTBH)on 02-02 Covid-19 PCR DETECTED Abnormal NOT DETECTED [facility] Comment on above: Result Comment: This test is not yet approved or cleared by the [place] FDA. When there are no FDA-approved or cleared tests available, and other criteria are met, FDA can make tests available under an emergency access mechanism called an Emergency Use Authorization (EUA). The EUA for this test is supported by the [place] of Health and Human Service's (HHS's) declaration [...] used). Performed By: #### C VDTBH #### [facility] [address] [place], [place] [id number] Juany Mccarthy EUA Statement SEE BELOW Normal [facility] Comment on above: Result Comment: This test is not yet approved or cleared by the [place] FDA. When there are no FDA-approved or cleared tests available, and other criteria are met, FDA can make tests available under an emergency access mechanism called an Emergency Use Authorization (EUA). The EUA for this test is supported by the [place] of Health and Human Service?s (HHS?s) declaration [...] SARS-CoV-2. Performed By: #### C VDTBH #### [facility] [address] [place], [place] [id number] Juany Mccarthy Vital Signs Date Time Vital Sign Value Performing Clinician Facility 10-15-2023 10:05-0400 Blood Pressure Location [employer] [facility] 10-15-2023 10:05-0400 Diastolic blood pressure 74 mm[Hg] [employer] [facility] 10-15-2023 10:05-0400 Heart rate 66 /min [employer] [facility] 10-15-2023 10:05-0400 Mean blood pressure 87 mm[Hg] [employer] [facility] 10-15-2023 10:05-0400 Respiratory rate 19 /min Mohamad Mouchli [facility] 10-15-2023 10:05-0400 SaO2% (BldA) [Mass fraction] 97 % Mohamad Mouchli [facility] 10-15-2023 10:05-0400 Systolic blood pressure 112 mm[Hg] Mohamad Mouchli [facility] 10-15-2023 09:55-0400 Blood Pressure Location Mohamad Mouchli [facility] 10-15-2023 09:55-0400 Diastolic blood pressure 57 mm[Hg] Mohamad Mouchli [facility] 10-15-2023 09:55-0400 Heart rate 57 /min Mohamad Mouchli [facility] 10-15-2023 09:55-0400 Mean blood pressure 71 mm[Hg] Mohamad Mouchli [facility] 10-15-2023 09:55-0400 Respiratory rate 19 /min Mohamad Mouchli [facility] 10-15-2023 09:55-0400 SaO2% (BldA) [Mass fraction] 100 % Mohamad Mouchli [facility] 10-15-2023 09:55-0400 Systolic blood pressure 100 mm[Hg] Mohamad Mouchli [facility] 10-15-2023 09:50-0400 Blood Pressure Location Mohamad Mouchli [facility] 10-15-2023 09:50-0400 Diastolic blood pressure 73 mm[Hg] Mohamad Mouchli [facility] 10-15-2023 09:50-0400 Heart rate 90 /min Mohamad Mouchli [facility] 10-15-2023 09:50-0400 Mean blood pressure 89 mm[Hg] Mohamad Mouchli [facility] 10-15-2023 09:50-0400 Respiratory rate 13 /min Mohamad Mouchli [facility] 10-15-2023 09:50-0400 SaO2% (BldA) [Mass fraction] 100 % Mohamad Mouchli [facility] 10-15-2023 09:50-0400 Systolic blood pressure 122 mm[Hg] Mohamad Mouchli [facility] 10-15-2023 09:41-0400 Body temperature 98.06 [degF] Mohamad Mouchli [facility] 10-15-2023 09:30-0400 Respiratory rate 10 /min Mohamad Mouchli [facility] 10-15-2023 09:25-0400 Respiratory rate 10 /min Mohamad Mouchli [facility] 10-15-2023 09:24-0400 Respiratory rate 10 /min Mohamad Mouchli [facility] 10-15-2023 07:13-0400 Body temperature 98.42 [degF] Mohamad Mouchli [facility] 09-13-2023 14:52-0400 Blood Pressure Location Mohamad Mouchli [facility] 09-13-2023 14:52-0400 Diastolic blood pressure 82 mm[Hg] Mohamad Mouchli [facility] 09-13-2023 14:52-0400 Heart rate 78 /min Jeromed Joseli [facility] 09-13-2023 14:52-0400 Respiratory rate 16 /min Mohamad Mouchli [facility] 09-13-2023 14:52-0400 Systolic blood pressure 110 mm[Hg] Mohamad Mouchli [facility] 07-20-2023 18:58-0400 Body temperature 98.49 [degF] Gwen Danielson MD Work Phone: [facility] 07-20-2023 18:58-0400 Diastolic blood pressure 83 mm[Hg] Gwen Danielson MD Work Phone: [facility] 07-20-2023 18:58-0400 Heart rate 52 /min Gwen Danielson MD Work Phone: [facility] 07-20-2023 18:58-0400 Respiratory rate 18 /min Gwen Danielson MD Work Phone: [facility] 07-20-2023 18:58-0400 SaO2% (BldA) [Mass fraction] 98 % Gwen Danielson MD Work Phone: [facility] 07-20-2023 18:58-0400 Systolic blood pressure 135 mm[Hg] Gwen Danielson MD Work Phone: [facility] 07-20-2023 13:40-0400 Body height 167.6 cm Gwen Danielson MD Work Phone: [facility] 07-20-2023 13:40-0400 Body mass index (BMI) [Ratio] 19.05 kg/m2 Gwen Danielson MD Work Phone: [facility] 07-20-2023 13:40-0400 Body weight 53.52 kg Gwen Danielson MD Work Phone: [facility] Encounters Encounter Date Encounter Type Care Provider Facility Start: 12-03-2023 End: 12-03-2023 ambulatory URIEL MEADE Not Available Start: 10-15-2023 End: 10-15-2023 ambulatory Alex Knutson Facility[place] Start: 10-15-2023 End: 10-15-2023 Patient encounter procedure Alex Knutson [facility] Start: 09-13-2023 End: 09-13-2023 ambulatory Alex Knutson Facility:[facility] Start: 09-13-2023 End: 09-13-2023 Patient encounter procedure Alex Knutson [facility] Start: 2023 ambulatory Alex Knutson Facilit y:[facility] Start: 08-23-2023 End: 08-23-2023 ambulatory CAROLYNE EDMONDS Not Available Start: 08-14-2023 Telephone encounter Karina Hand MD Work Phone: Endocrinology Comment on above: Results Start: 07-26-2023 End: 07-26-2023 ambulatory CAROLYNE EDMONDS Not Available Start: 07-20-2023 End: 07-20-2023 Emergency department patient visit Gwen Danielson MD Work Phone: [facility] Comment on above: Nausea and vomiting, unspecified vomiting type (Primary Dx); Gastritis, presence of bleeding unspecified, unspecified chronicity, unspecified gastritis type Start: 06-13-2023 End: 06-13-2023 [facility] Karina Cummings MD Work Phone: Endocrinology Comment [...] Encounter for preprocedural laboratory examination YASMIN MARTINEZ [facility] Start: 02-25-2020 Encounter for other preprocedural examination YASMIN MARTINEZ [facility] Start: 02-23-2020 End: 02-23-2020 Patient encounter procedure YASMIN MARTINEZ Facility:[facility] Start: 02-20-2020 End: 02-20-2020 Patient encounter procedure YASMIN MARTINEZ Facility:[facility] Start: 02-16-2020 End: 02-17-2020 Patient encounter procedure YASMIN MARTINEZ Facility:[facility] Encounter for other preprocedural examination YASMIN MARTINEZ [facility] Encounter for preprocedural laboratory examination YASMIN MARTINEZ [facility] Procedures Date Procedure Procedure Detail Performing [...] Start: 07-20-2023 Ct thorax w/contrast material Abiodun sarabia PA-C Work Phone: Start: 07-20-2023 CBC W Auto Differential panel - Blood [facility] Start: 07-20-2023 Comprehensive metabolic 2000 panel - Serum or Plasma [facility] Start: 07-20-2023 HUMAN CHORIONIC GONADOTROPIN, SERUM QUANTITATIVE [facility] Start: 07-20-2023 Lactate [Moles/volume] in Serum or [facility] Start: 07-20-2023 Lipase [Enzymatic activity/volume] in Serum or Plasma [facility] Start: 07-20-2023 TROPONIN I, HIGH SENSITIVITY [facility] Start: 07-20-2023 ECG 12-LEAD [facility] Start: 07-20-2023 INSERT PERIPHERAL IV [facility] Start: 07-20-2023 Assay of lactate Abiodun Ochoa PA-C Work Phone: Start: 07-20-2023 Radiologic exam chest single view Abiodun Ochoa PA-C Work Phone: Start: 07-20-2023 Drug tst prsmv instrmnt chem analyzers pr date Abiodun Ochoa PA-C Work Phone: Start: 07-20-2023 Urinalysis complete W Reflex Culture panel - Urine Abiodun Ochoa PA-C Work Phone: Start: 07-20-2023 Urnls dip stick/tablet reagent auto microscopy Abiodun Ochoa PA-C Work Phone: Start: 07-20-2023 Comprehensive metabolic panel Abiodun sarabia PA-C Work Phone: Start: 07-20-2023 Ecg routine ecg w/least 12 lds trcg only w/o i&r Abiodun Ohcoa PA-C Work Phone: Plan of Treatment Date Care Activity Detail Author Start: 2044 Zoster Vaccines (1 of 2) Zoste r Vaccines (1 of 2) [facility] Start: 11-04-2023 Influenza vaccination Influenz a Vaccine (Season Ended) [facility] Start: 07-11-2023 End: 10-10-2023 Corticotropin [Mass/volume] in Plasma ACTH BLD Lab Routine 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HCC) Expected: 07/11/2023, Expires: 10/10/2023 [facility] Comment on above: Expected: 07/11/2023 , Expires: 10/10/2023 Start: 07-11-2023 End: 10-10-2023 Cortisol [Mass/volume] in Serum or Plasma CORTISOL, SERUM Lab Routine 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[facility]) Expected: 07/11/2023, Expires: 10/10/2023 [facility] Comment on above: Expected: 07/11/2023 , Expires: 10/10/2023 Start: 07-11-2023 End: 10-10-2023 Estradiol (E2) [Mass/volume] in Serum or Plasma ESTRADIOL-17B BLD Lab Routine 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[facility]) Expected: 07/11/2023, Expires: 10/10/2023 [facility] Comment on above: Expected: 07/11/2023 , Expires: 10/10/2023 Start: 07-11-2023 End: 10-10-2023 Follitropin [Units/volume] in Serum or Plasma FOLLICLE STIMULATING HORMONE Lab Routine 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[facility]) Expected: 07/11/2023, Expires: 10/10/2023 [facility] Comment on above: Expected: 07/11/2023 , Expires: 10/10/2023 Start: 07-11-2023 End: 10-10-2023 INSULIN LIK GR FAC I INSULIN LIK GR FAC I Lab Routine 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[facility]) Expected: 07/11/2023, Expires: 10/10/2023 [facility] Comment on above: Expected: 07/11/2023 , Expires: 10/10/2023 Start: 07-11-2023 End: 10-10-2023 Lutropin [Units/volume] in Serum or Plasma LUTEINIZING HORMONE Lab Routine 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[facility]) Expected: 07/11/2023, Expires: 10/10/2023 [facility] Comment on above: Expected: 07/11/2023 , Expires: 10/10/2023 Start: 07-11-2023 End: 08-09-2024 MR Pituitary and Sella turcica WO and W contrast IV MRI PITUITARY WO/W IVCON Radiology Routine 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[facility]) Expected: 07/11/2023, Expires: 08/09/2024 [facility] [place] Work Phone: Comment on above: Expected: 07/11/2023 , Expires: 08/09/2024 Start: 07-11-2023 End: 10-10-2023 Prolactin [Mass/volume] in Serum or Plasma PROLACTIN Lab Routine 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HCC) Expected: 07/11/2023, Expires: 10/10/2023 [facility] Comment on above: Expected: 07/11/2023 , Expires: 10/10/2023 Start: 07-11-2023 End: 10-10-2023 Somatostatin [Mass/volume] in Plasma GROWTH HORMONE Lab Routine 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HCC) Expected: 07/11/2023, Expires: 10/10/2023 [facility] Comment on above: Expected: 07/11/2023 , Expires: 10/10/2023 Start: 07-11-2023 End: 10-10-2023 Thyrotropin [Units/volume] in Serum or Plasma THYROID STIMULATING HORMONE Lab Routine 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HCC) Expected: 07/11/2023, Expires: 10/10/2023 [facility] Comment on above: Expected: 07/11/2023 , Expires: 10/10/2023 Start: 07-11-2023 End: 10-10-2023 Thyroxine (T4) free [Mass/volume] in Serum or Plasma T4 FREE/FREE THYROXINE Lab Routine 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[facility]) Expected: 07/11/2023, Expires: 10/10/2023 [facility] Comment on above: Expected: 07/11/2023 , Expires: 10/10/2023 Start: 03-05-2023 Behavioral Health Screening Behavioral Health Screening [facility] Start: 11-03-2022 Covid-19 Vaccine () Covid-19 Vaccine () [facility] Start: 05-29-2018 DTaP/Tdap/Td Vaccine s (3 - Td or Tdap) DTaP/Tdap/Td Vaccines (3 - Td or Tdap) [facility] Start: 05-29-2018 Urine microalbumin profile DTaP,Tdap,Td Vaccine (3 - Td or Tdap) [facility] Start: 08-30-2015 Screening for malign ant neoplasm of cervix [facility] Start: 07-13-2014 Hepatitis B Vaccine (3 of 3 - 19+ 3-dose series) Hepatitis B Vaccine (3 of 3 - 19+ 3-dose series) [facility] Start: 07-13-2014 Hepatitis B Vaccines (3 of 3 - 19+ 3-dose series) Hepatitis B Vaccines (3 of 3 - 19+ 3-dose series) [facility] Start: 05-12-2014 Hepatitis A Vaccines (2 of 2 - 2-dose series) Hepatitis A Vaccines (2 of 2 - 2-dose series) [facility] Start: 2012 Hepatitis C screening Hepatitis C Sc reening [facility] Start: 2012 HIV screening HIV Screening [facility] Start: 05-18-2010 Varicella vaccination Varicell a Vaccines (2 of 2 - 13+ 2-dose series) [facility] Start: 2000 Pneumococcal Vaccine : Pediatrics (0 to 5 Years) and At-Risk Patients (6 to 64 Years) (1 of 2 - PCV) Pneumococcal Vaccine: Pediatrics (0 to 5 Years) and At-Risk Patients (6 to 64 Years) (1 of 2 - PCV) [facility] Start: 07-06-1999 IPV Vaccines (2 of 3 - 4-dose series) IPV Vaccines (2 of 3 - 4-dose series) [facility] Start: 1994 HIV screening HIV Screening [facility] Start: 1994 Lipid panel Lipid Panel [facility] Start: 1994 Yearly Adult Physical Yearly Adult P hysical [facility] ECG 12 lead ECG 12 lead ECG STAT 07/20/2023 2:57 PM EDT [facility] Work Phone: End: 07-20-2023 Extra Urine Doran Tube [facility] Work Phone: Comment on above: Once for 1 Occurrenc es starting 07/20/2023 until 07/20/2023 End: 07-20-2023 Urinalysis complete W Reflex Culture panel - Urine [facility] Service Area Work Phone: Comment on above: Once (Lab) for 1 Occ urrences starting 07/20/2023 until 07/20/2023 Immunizations Immunization Date Immunization Notes Care Provider Fa cilitarsha 12-06-2015 influenza virus vaccine, unspecified formulation Karina Cummings MD Work Phone: [facility] 05-18-2014 hepatitis B vaccine, adult dosage Mohamad Mouchli [facility] 03-30-2014 hepatitis B vaccine, adult dosage Mohamad Mouchli [facility] 11-12-2013 hepatitis A vaccine, unspecified formulation Mohamad Mouchli [facility] 11-12-2013 hepatitis B vaccine, pediatric or pediatric/adolescent dosage Mohamad Mouchli [facility] 11-12-2013 hepatitis A and hepatitis B vaccine Gwen Danielson MD Work Phone: [facility] Work Phone: 12-31-2012 influenza, whole Mohdundeed Rosa chli [facility] 04-20-2010 hepatitis A vaccine, unspecified formulation Mohamad Mouchli [facility] 04-20-2010 varicella virus vaccine Jeovanny Danielson MD Work Phone: [facility] 05-29-2008 meningococcal ACWY vaccine, unspecified formulation Mohamad Mouchli [facility] 05-29-2008 tetanus toxoid, redu bridget diphtheria toxoid, and acellular pertussis vaccine, adsorbed Mohamad Mouchli [facility] 12-13-2006 HPV, unspecified formulation Mohamad Mouchli [facility] 08-13-2006 HPV, unspecified formulation Mohamad Mouchli [facility] 06-13-2006 HPV, unspecified formulation Mohamad Mouchli [facility] 06-08-1999 DTaP, unspecified formulation Alex Knutson [facility] 06-08-1999 measles, mumps and rubella virus vaccine Alex Garciahilario [facility] 06-08-1999 poliovirus vaccine, unspecified formulation Gwen Danielson MD Work Phone: [facility] Payers Date Payer Category Payer Unknown [id number] 2019 Unknown [id number] 1994 Unknown [id number] 2.16.84 [id number] 1994 Unknown [id number] 2.16.84 [id number] 1994 Unknown [id number] 2.16.84 [id number] 1994 Unknown [id number] 2.16.84 [id number] 1994 Unknown [id number] 2.16.8 [id number] 1994 Unknown [id number] 2.16.8 [id number] 1994 Unknown [id number] 2.16.8 [id number] 1994 Unknown [id number] 2.16.8 [id number] 1994 Unknown [id number] 2.16.84 [id number] 1994 Unknown [id number] 2.16.84 [id number] 1994 Unknown [id number] 2.16.84 0.1.607535.3.579.2.1259 1994 Unknown [id number] 2.16.84 [id number] 1994 Unknown [id number] 2.16.84 0.1.995683.3.579.2.1259 1994 Unknown [id number] 2.16.840 .[id number] 1959 Unknown [id number] 1959 Unknown [id number] 1959 Unknown [id number] Social History Date Type Detail [facility] Start: 06-13-2023 History of Social function [facility] Start: 06-13-2023 Area Deprivation Index [facility] National Score (1-10 0), lower number is lower risk 85 [facility] Start: 1994 Sex Assigned At Not on file C [facility] Start: 07-10-2023 End: 07-20-2023 Exposure to SARS-CoV-2 (event) Not sure [facility] Work Phone: Start: 09-13-2023 Tobacco smoking status Never s moked tobacco (finding) [facility] Functional Status Date Assessment Result Facility 10-15-2023 Functional Status N/A [facility] 09-13-2023 Functional Status N/A [facility] Clinical Notes 01-20-2021 to 10-15-2023 Note Date & Type Note Facility 10-15-2023 Evaluation + Plan note Extrac latisha from: Title:ANES [facility] Author:Gus Moreno DO Date:10/15/23 Plan Transfer/Discharge: Patient exhibiting no signs of N/V. Hydration status is adequate. Extracted from: Title:Josh Basic PRE Author:Kenan Moreno DO Date:10/15/23 Plan [place] [employer] (ASA) physical status classification: Class II. Anesthetic Preoperative Plan: Anesthesia General. [facility] 08-12-2024 Hospital Discharge instructions Patient Education 10/15/2023 09:50:27 Colonoscopy, Care After Surgery [facility] (CUSTOM) Colonoscopy Care After Surgery Please read the instructions outlined below and refer to this sheet in the next few weeks. These discharge instructions provide you with general information on caring for yourself after you leave thespital. Your doctor may also give you specific [...] day. 10/15/2023 09:50:26 Endoscopy, Care After Procedure [facility] ([facility]) Endoscopy Care After Procedure Please read the [...] Document Re-Released: 08/13/2006 ExitCare Patient Information 2009 [employer]. Follow Up Care 09/13/2023 15:40:21 With:Alex Knutson Address: [address] [place] [phone] Business (1) When:1 to 2 weeks Comments:Call for any problems. [facility] 08-12-2024 NoteProgress Note-Physician Patient: INDU ST [...] Daily, # 527 gm, Refills(s) 5, Pharmacy: [facility] #[id number], 167, cm, 09/13/23 14:57:00 EDT, Height/Length Dosing, 48.9, kg, 09/13/23 14:57:00 EDT, Weight Dosing Pantoprazole [address] Tab: 40 mg = 1 tab(s), Oral, Daily, # 30 tab(s), Refills(s) 4, Pharmacy: [facility] #[id number], 167, cm, 09/13/23 14:57:00 EDT, Height/Length Dosing, [...] CT of the abdomen / SNOMED CT 8929684625 / Confirmed Abnormal uterine bleeding. / SNOMED CT 5447547173 / Confirmed Amenorrhea / SNOMED CT 64460785 / Confirmed Anemia / SNOMED CT 938649112 / Confirmed Anxiety / SNOMED CT 74387470 / Confirmed Asthma / SNOMED CT 863947486 / Confirmed Attention deficit hyperactivity disorder / SNOMED CT 8145345418 / Confirmed Benign neoplasm of pituitary gland / SNOMED CT 079301464 / Confirmed Bilateral arthritis of sacroiliac joint / SNOMED CT 5478391017 / Confirmed Bipolar disorder / SNOMED CT 63029092 / Confirmed Chronic rhinitis / SNOMED CT 989385946 / Confirmed Chronic vaginitis / SNOMED CT 43058846 / Confirmed Depressive disorder / SNOMED CT 73101166 / Confirmed Disorder of pituitary gland / SNOMED CT 0053314507 / Confirmed Endometriosis (clinical) / SNOMED CT 675636710 / Confirmed Esophagitis / SNOMED CT 94633294 / Confirmed Fatigue / SNOMED CT 805072211 / Confirmed Gastritis / SNOMED CT 1601846 / Confirmed Heartburn / SNOMED CT 64751137 / Confirmed History of laparoscopy / SNOMED CT 3483432406 / Confirmed Malignant tumor of cervix / SNOMED CT 169274231 / Confirmed Miscarriage / SNOMED CT 61829282 / Confirmed Nausea and vomiting / SNOMED CT 61544547 / Confirmed Pain in pelvis / SNOMED CT 707056688 / Confirmed Prolactin level above reference range / SNOMED CT 6366573658 / Confirmed Prolactinoma / SNOMED CT 479918108 / Confirmed Sciatica / SNOMED CT 73441597 / Confirmed Seasonal allergic rhinitis / SNOMED CT 479547805 / Confirmed Stress-related physiological response affecting medical condition / SNOMED CT 49307029 / Confirmed 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 Weight loss / SNOMED CT 955515341 / Confirmed Physical Examination Vital Signs 10/15/2023 [...] 36.7 DegC Heart Rate (more content not included)...[facility]:Result Comment: Electronically Signed By: Lenny Moreno DO\.br\Date and Time Signed: 10/15/23 10:06 [id number] NoteColonoscopy Procedure Report Patient: INDU ST Age: [...] Daily, # 527 gm, Refills(s) 5, Pharmacy: [facility] #[id number], 167, cm, 09/13/23 14:57:00 EDT, Height/Length Dosing, 48.9, kg, 09/13/23 14:57:00 EDT, Weight Dosing Pantoprazole [address] Tab: 40 mg = 1 tab(s), Oral, Daily, # 30 tab(s), Refills(s) 4, Pharmacy: [facility] #[id number], 167, cm, 09/13/23 14:57:00 EDT, Height/Length Dosing, [...] 3. Normal terminal ileum Images Procedure images: [id number].jpg [id number].jpg [id number] [id number]_hd_video_[id number].jpg [id number]_hd_video_[id number].jpg [id number].jpg [id number]_[id number].jpg . Post-Procedure Complications: none. Estimated blood loss: none. Specimens: none. Devices/ implants: none left in place. Impression and Plan internal hemorrhoids Otherwise, normal colon Recommendations: Repeat colonoscopy:: At the age of 44 . Follow-up:: in clinic as scheduled. Diet:: Previous. Medication resumption:: Continue current medications, Avoid NSAIDs. Return to activities:: After 24 hours. Education and Follow-up: Counseled: Patient, Family.[facility] Comment on above:Other Comment: Missing Attachment - attachment storage system not supported [id number] Can be viewed in source system Missing Attachment - attachment storage system not supported [id number] Can be viewed in source systemMissing Attachment - attachment storage system not supported [id number] Can be viewed in source systemMissing Attachment - attachment storage system not supported [id number] Can be viewed in source systemMissing Attachment - attachment storage system not supported [id number] Can be viewed in source systemMissing Attachment - attachment storage system not supported [id number] Can be viewed in source systemMissing Attachment - attachment storage system not supported [id number] Can be viewed in source [phone] Note Patient Education - Text Colonoscopy Care After Surgery Please read the instructions outlined below and refer to this sheet in the next few weeks. These discharge instructions provide you with general information on [facility] Your doctor may also give you specific [...] on [facility] Your doctor may also give you specific [...] Document Re-Released: 08/13/2006 ExitCare? Patient Information ?2009 [employer] 10-15-2023 NoteProgress Note-Physician Patient: INDU ST Age: [...] Daily, # 527 gm, Refills(s) 5, Pharmacy: [facility] #[id number], 167, cm, 09/13/23 14:57:00 EDT, Height/Length Dosing, 48.9, kg, 09/13/23 14:57:00 EDT, Weight Dosing Pantoprazole [address] Tab: 40 mg = 1 tab(s), Oral, Daily, # 30 tab(s), Refills(s) 4, Pharmacy: [facility] #[id number], 167, cm, 09/13/23 14:57:00 EDT, Height/Length Dosing, [...] CT of the abdomen / SNOMED CT 5356124875 / Confirmed Abnormal uterine bleeding. / SNOMED CT 3059573542 / Confirmed Amenorrhea / SNOMED CT 82996728 / Confirmed Anemia / SNOMED CT 023515060 / Confirmed Anxiety / SNOMED CT 52745471 / Confirmed Asthma / SNOMED CT 908194471 / Confirmed Attention deficit hyperactivity disorder / SNOMED CT 9721912202 / Confirmed Benign neoplasm of pituitary gland / SNOMED CT 393751418 / Confirmed Bilateral arthritis of sacroiliac joint / SNOMED CT 9014756453 / Confirmed Bipolar disorder / SNOMED CT 83708378 / Confirmed Chronic rhinitis / SNOMED CT 537880868 / Confirmed Chronic vaginitis / SNOMED CT 13457952 / Confirmed Depressive disorder / SNOMED CT 17075456 / Confirmed Disorder of pituitary gland / SNOMED CT 3046964182 / Confirmed Endometriosis (clinical) / SNOMED CT 892337056 / Confirmed Esophagitis / SNOMED CT 45729558 / Confirmed Fatigue / SNOMED CT 534937315 / Confirmed Gastritis / SNOMED CT 3909792 / Confirmed Heartburn / SNOMED CT 44695016 / Confirmed History of laparoscopy / SNOMED CT 9590288379 / Confirmed Malignant tumor of cervix / SNOMED CT 714720694 / Confirmed Miscarriage / SNOMED CT 21234634 / Confirmed Nausea and vomiting / SNOMED CT 07662281 / Confirmed Pain in pelvis / SNOMED CT 709931847 / Confirmed Prolactin level above reference range / SNOMED CT 6957069073 / Confirmed Prolactinoma / SNOMED CT 813816577 / Confirmed Sciatica / SNOMED CT 31551550 / Confirmed Seasonal allergic rhinitis / SNOMED CT 068619478 / Confirmed Stress-related physiological response affecting medical condition / SNOMED CT 15751589 / Confirmed Visceral hypersensitivity syndrome / SNOMED CT 7668914302 / Confirmed Weight loss / SNOMED CT 888927494 / Confirmed, Active Problems (31) Abnormal CT of the abdomen Abnormal uterine bleeding. 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 Bipolar disorder Chronic rhinitis Chronic vaginitis Depressive disorder Disorder of pituitary gland Endometriosis (cl (more content not included)...[facility] Comment on above:Result Comment: Electronically Signed By: Lenny Moreno DO\.br\Date and Time Signed: 10/15/23 07:34 [id number] Telephone encounter Note* Telephone Encounter - Twyla Salcedo MA - 08/14/2023 11:08 AM EDT Received MRI results completed 08/02/2023, scanned to chart Twyla Salcedo Hand Compositor II Endocrinology & Metabolism [facility] F20 & X20 [facility]06-11-2024 Miscellaneous Notes* Telephone Encounter - Twyla Salcedo MA - 08/14/2023 11:08 AM EDT Received MRI results completed 08/02/2023, scanned to chart Twyla Salcedo Hand Compositor II Endocrinology & Metabolism [facility] F20 & X20 [facility] Reason for referral (narrative)* Consultation (Routine) - Authorized Specialty Diagnoses / Procedures Referred By Contotto t Referred To Contact Gastroenterology Abiodun Ochoa, PAIzaC [address] [address] [id number] Gastro1 [address] [place] [address] Referral ID Status Reason Start Date Expiration Date Visits Requested Visits Authorized [id number] Authorized Specialty Services Required 07/20/2023 07/19/2024 1 1 [facility] Work Phone: [phone]) 172-819104-10-2024 NoteHNO ID: [id number] Author: KARINA CUMMINGS MD Service: ? Author [...] June 13, 2023 TIME of SERVICE: 10:12 [facility]04-10-2024 History of Present illness Narrative* Karina Cummings [...] of SERVICE: 10:12 AM documented in [facility]2021 NoteHNO ID: [id number] Author: Renetta Beltran MD Service: Reproductive Endocrinology [...] Dr. Renetta Beltran M.D. Reproductive Endocrinology and InfertilitySteward Health Care [id number] NoteHNO ID: [id number] Author: RT Juan(R) Service: Radiology Author Type: Technologist Type: Progress Notes Filed: 01/20/2021 12:30 PM Note Text: Radiology Service Progress Note PATIENT NAME: Indu St DATE OF SERVICE: January 20, 2021 [...] BY: RT Juan(R) January 20, 2021 12:29 [facility] + Plan note Future Appointments Appointment Date:10/01/2023 09:00:00 AM Scheduled Provider: Location:[facility] Appointment Type:Surgery FT [facility] Evaluation note* Diagnosis Prolactinoma (HCC)- Primary Benign neoplasm of pituitary gland and craniopharyngeal duct (pouch) 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HCC) Unspecified disorder of the pituitary gland and its hypothalamic control Elevated prolactin level Unspecified endocrine disorder [facility] Diagnosis Nausea and vomiting, unspecified vomiting type- Primary Gastritis, presence of bleeding unspecified, unspecified chronicity, unspecified gastritis type documented in this encounter [facility] Work Phone: Hospital course Narrative No data available for this section [facility] Hospital Discharge instructions* Attachments The following attachments cannot be sent through Care Everywhere. * Gastritis ED (Croatian) * Nausea and Vomiting, Adult ED (Croatian) * Cannabis hyperemesis syndrome (Croatian) [facility] Work Phone: Hospital Discharge instructions No data available for this section [facility] Progress note No data available for this section [facility] Summary Purpose Family History [...] STEM W/O W/CONTRAST MATERIAL Karina Cummings MD [address] [place] [address] [place] [address] Referral ID Status Reason Start Date Expiration Date Visits Requested Visits Authorized [id number] Pending Review Auto-Generat ed Referral 07/11/2023 08/09/2024 1 1 Additional Source Comments INFORMATION SOURCE (unrecogn ized section and content) DATE CREATED AUTHOR 04/15/2020 [facility] DATE CREATED AUTHOR AUTHOR'S ORGANIZ ATION 01/22/2021 [facility] DATE CREATED AUTHOR AUTHOR'S ORGANIZ ATION 01/22/2021 [facility] DATE CREATED AUTHOR AUTHOR'S ORGANIZ ATION 07/30/2023 [facility] DATE CREATED AUTHOR AUTHOR'S ORGANIZ ATION 08/24/2023 [facility] DATE CREATED AUTHOR AUTHOR'S ORGANIZ ATION 09/19/2023 [facility] DATE CREATED AUTHOR AUTHOR'S ORGANIZ ATION 10/16/2023 [facility] DATE CREATED AUTHOR AUTHOR'S ORGANIZ ATION [facility]18/2023 [facility] DATE CREATED AUTHOR AUTHOR'S ORGANIZ ATION 10/19/2023 [facility] DATE CREATED AUTHOR AUTHOR'S ORGANIZ ATION 12/03/2023 [facility] EPIC Source Comments (unrecognize d section and content) In the event this informatio n is protected by the Federal Confidentiality of Alcohol and Drug Abuse Patient Records regulations: The Federal rules restrict any use of the information to criminally investigate or prosecute any alcohol or drug abuse patient.[facility] the event this information is protected by the Federal Confidentiality of Alcohol and Drug Abuse Patient Records regulations: The Federal rules restrict any use of the information to criminally investigate or prosecute any alcohol or drug abuse patient.[facility] Reason for Visit (unrecogniz ed section and content) Reason Comments Pituitary Problem Reason Comments n/v. chest pain Reason Comments Results Care Teams (unrecognized sec tion and content) Bone Density Technician Relationship Specialty Start Date End Date Uriel Meade DO [address] [place] [address] Referring General Accounting Clerk 06/05/23 Bone Density Technician Relationship Specialty Start Date End Date Uriel Meade [address] [place] [address] Referring General Accounting Clerk 06/05/23 Scheduled Active and Recently Administ ered [...] BE BASED ON THE PRIMARY CLINICAL RECORDS. [employer] provides no warranty or guarantee of the accuracy or completeness of information in this document.
--- NOTE | 2023-12-24 14:01 | FL_ITS ---
The [address] [address] Patient Name: INDU ST MRN: [id number] date: 1995 Sex: F Assigned Patient Location: [place] Current Patient Location: Accession/Order Number: [id number] Exam Date: 12/24/2023 14:38 Report Date: 12/24/2023 16:00 At the request of: MARZENA JARRELL Procedure: FL Hysterosal cath placement EXAM: FL Hysterosal cath placement HISTORY: Fallopian Tube Disorder N83.9 COMPARISON: No relevant comparison available. TECHNIQUE: Informed consent was obtained. A sterile vaginal speculum was introduced and, following cleansing of the cervix, a balloon-tipped catheter was inserted into the endometrial cavity. The procedure was then completed in the usual manner with water-soluble contrast. Standard level fluoroscopic mode of operation utilized. FINDINGS: FALLOPIAN TUBES: Occluded fallopian tubes bilaterally. ENDOMETRIAL CAVITY: No scarring, filling defects, or dilatation. OTHER: Negative. FL/MT Hysterosal cath placement IMPRESSION: Bilateral fallopian tube occlusion Electronically authenticated by: ROMY VIRGEN Date: 12/24/2023 16:00
--- NOTE | 2023-12-24 14:01 | FL_ITS ---
[address] [address] Patient Name: INDU ST MRN: [id number] date: 1995 Sex: F Assigned Patient Location: CT Current Patient Location: CT Accession/Order Number: [id number] Exam Date: 12/24/2023 14:35 Report Date: 12/24/2023 15:17 At the request of: MARZENA JARRELL Procedure: FL hysterosalpingography EXAMINATION: CT hysterosalpingography HISTORY: Fallopian Tube Disorder N83.9 COMPARISON: No relevant comparison available. TECHNIQUE: Informed consent was obtained. A sterile vaginal speculum was introduced and, following cleansing of the cervix, a balloon-tipped catheter was inserted into the endometrial cavity. The procedure was then completed in the usual manner with water-soluble contrast. Standard level fluoroscopic mode of operation utilized. FINDINGS: FALLOPIAN TUBES: Occluded fallopian tubes bilaterally. ENDOMETRIAL CAVITY: No scarring, filling defects, or dilatation. OTHER: Negative. CT/CT hysterosalpingography IMPRESSION: Bilateral fallopian tube occlusion Electronically authenticated by: ROMY VIRGEN Date: 12/24/2023 15:17
[2023-12-24 14:21] LABS: HCG Quantitative <1 mIU/mL
--- NOTE | 2023-12-24 15:05 | SUR.PREOP ---
12/20/23 Pt instructed on procedure, date, time, an dprep.
--- NOTE | 2023-12-24 15:11 | PC.NURSE ---
12/24/23 Pt states that her fallopian tubes are closed and have been since 2021. This test today is to confirm that the tubes are closed for start of IVF
--- NOTE | 2023-12-24 15:24 | SUR.PREOP ---
1450 Pt denies any cramping or bleeding after procedure.
== END 2023-12-24 14:55 | disposition home or self-care (01) ==
LOC: FL 13:39
PROVIDERS: Radiology Diagnostic Radiology; PCP Family Medicine; Visit Provider Obstetrics & Gynecology
DX: N83.9 Noninflammatory disorder of ovary, fallopian tube and broad ligament, unspecified (principal)
CPT/HCPCS: 36415; 58340; 74740; 84702; Q9966

== ENCOUNTER 2024-02-13 16:06 | Outpatient (OUT) | payer BC, SELFPAY ==
--- OUTSIDE RECORDS SUMMARY | 2024-02-13 16:20 | XMS_ITS | CCD ---
Author Organization [facility] Care Team Providers Care Board Saw Runner Name Role Phone YASMIN MARTINEZ Consulting Unavailable CAROLYNE EDMONDS Primary Care Unavailable YASMIN MARTINEZ Admitting Unavailable RONALDKYASMIN Attending Unavailable GIGI COBB Consulting Unavailable KARASIK, YASMIN Admitting Unavailable KARASIK, YASMIN Attending Unavailable KARILDEFONSOKYASMIN Consulting Unavailable KARILDEFONSOKYASMIN Consulting Unavailable KARASIK, YASMIN Admitting Unavailable KARILDEFONSOK, YASMIN Attending Unavailable YASMIN MARTINEZ Primary Care Unavailable KARILDEFONSOK, YASMIN Admitting Unavailable RONALDKYASMIN Attending Unavailable Uriel Meade DO R Unavailable Unavailable Primary Care Provider UnavailKARINA Tilley Attending Unavailable Carolyne Edmonds Primary Care Physician GWEN DANIELSON Attending Unavailable Mouchli, Mohamad A. Referring Unavailable Mouchli, Mohamad A. Admitting Unavailable Zenia, Mohamad A. Attending Unavailable Alex Knutson Attending Unavailable Carolyne Edmonds Referring Unavailable Mouchli, Mohamad A. Referring Unavailable Mouchli, Mohamad A. Attending Unavailable Momarcosli, Mohamad A. Admitting Unavailable URIEL MEADE Attending Unavailable CAROLYNE EDMONDS Attending Unavailable CAROLYNE EDMONDS Attending Unavailable CAROLYNE EDMONDS Attending Unavailable CAROLYNE EDMONDS Attending Unavailable URIEL MEADE Attending Unavailable Carolyne Edmonds MD Primary Care Provider Allergies Allergy Classification Reported Allergen(s) Allergy Type Date of Onset Reaction(s) Facility (1 source) No Known Medication Allergies; Translations: [No Known Medication Allergies] Propensity to adverse reactions (disorder) [facility] Repository (3 sources) House dust mite Allergy to substance 3 Unknown [facility] Medications Current Medications Medication Drug Class(es) Dates [...] Status: Ordered ALPRAZolam 0.5 mg oral tablet (5 sources) Benzodiazepine Start: 09-13-2023 take 1 tablet by mouth three times daily as needed for anxiety Xanax 0.5 mg Tab 0.5 mg = 1 tab(s), Oral, TID, PRN for anxiety, Refills(s) 0 Start Date: 09/13/23 Status: Ordered take 1 tablet by rosa th twice daily as needed for anxiety ALPRAZolam (Xanax) 0.5 MG tablet 1 table t Orally Twice a day as needed for anxiety for 30 days Active budesonide-formoterol (Breyna) 80-4.5 MCG/ACT inhaler (3 sources) Start: 08-23-2023 End: 08-22-2024 take 2 puff(s) by mouth once daily budesonide-formoterol (Breyna) 80-4.5 MCG/ACT inhaler Indications: Mild intermittent asthma without complication (CMS/HCC) Inhale 2 puffs Daily Rinse mouth with water after use to reduce aftertaste and incidence of candidiasis. Do not swallow. 10.2 g 2 08/23/2023 08/22/2024 Active cyclophosphamide 50 mg oral capsule (2 sources) [...] Daily, # 30 tab(s), Refills(s) 4, Pharmacy: [facility] #[id number], 167, cm, 09/13/23 14:57:00 EDT, Height/Length Dosing, [...] tablet 07/20/2023 08/09/2023 Active polyethylene glycol 3350 34216 mg powder for oral solution (2 sources) Osmotic Laxative Start: 09-13-2023 take 17 g by mouth once daily Miralax 3350 17 gram packet 17 gm, Oral, Daily, # 527 gm, Refills(s) 5, Pharmacy: [facility] #[id number], 167, cm, 09/13/23 14:57:00 EDT, Height/Length Dosing, [...] Refills(s) 0 Start Date: 09/13/23 Status: Ordered metroNIDAZOLE 500 mg oral tablet (2 sources) Nitroimidazole Antimicrobial Start: 01-16-2024 End: 01-23-2024 take 1 tablet by mouth in the morning metroNIDAZOLE (Flagyl) 500 MG tablet Indications: Vaginal odor Take 1 tablet (500 mg) by mouth in the morning and 1 tablet (500 mg) before bedtime. Do all this for 7 days. 14 tablet 01/16/2024 01/23/2024 1 ml morphine sulfate 4 mg/ml injection [...] AND PERINEAL PAIN] Onset: 03-24-2020 Anxiety disorders (9 sources) Anxiety disorder, unspecified; Translations: [Anxiety] Onset: 03-24-2020 09-13-2023 Chronic Asthma (6 sources) Unspecified asthma, uncomplicated; Translations: [Asthma] Onset: 03-24-2020 09-13-2023 Chronic Attention-deficit, conduct, and disruptive behavior disorders (2 sources) Attention deficit hyperactivity disorder 09-13-2023 Chronic Attention-deficit, conduct, and disruptive behavior disorders (3 sources) Attention deficit hyperactivity disorder, combined type; Translations: [Attention-deficit hyperactivity disorder, combined type] Onset: 12-21-2022 12-21-2022 Chronic Cancer of cervix (2 sources) Malignant tumor of cervix 09-13-2023 Chronic Deficiency and other anemia (2 sources) Anemia 09-13-2023 Episodic Endometriosis (3 sources) Endometriosis of pelvic peritoneum; Translations: [Endometriosis (clinical)] Onset: 03-24-2020 09-13-2023 Chronic Esophageal disorders (3 sources) Esophagitis; Translations: [Esophagitis, unspecified without bleeding] Onset: 09-13-2023 Episodic Female infertility (2 sources) Female infertility; Translations: [Female infertility, unspecified] 01-16-2024 Chronic Gastritis and duodenitis (5 sources) Gastritis; Translations: [...] classified elsewhere] Onset: 09-13-2023 Chronic Mood disorders (12 sources) Bipolar disorder, unspecified; Translations: [Bipolar disorder] Onset: 03-24-2020 Chronic Nausea and vomiting (6 sources) Nausea and vomiting; Translations: [Nausea with vomiting, unspecified] Onset: 07-20-2023 07-20-2023 Episodic Other aftercare (1 source) Other terminal operator (current) drug therapy; Translations: [[facility] [...] sources) Abnormal uterine bleeding 09-13-2023 Chronic Other female genital disorders (2 sources) Vaginal odor; Translations: [Other specified noninflammatory disorders of vagina] 01-16-2024 Episodic Other gastrointestinal disorders (3 sources) Heartburn; Translations: [...] Classification Problem Date Documented Da te Episodic/Chronic Genitourinary symptoms and ill-defined conditions (3 sources) Proteinuria; Translations: [Proteinuria, unspecified] Onset: 08-03-2010 12-21-2022 Episodic Inflammatory diseases of female pelvic organs (3 sources) Female pelvic peritoneal adhesions (postinfective); Translations: [Chronic vaginitis] Onset: 03-24-2020 09-13-2023 Episodic Other and unspecified benign neoplasm (2 sources) Benign neoplasm of pituitary gland Onset: 06-13-2023 09-13-2023 Episodic Results Test Name Value Interpretation Reference Range Facility [facility] PREG QUANT HCGon 024 HCG QUANTITATIVE <1 mIU/mL [facility] Comment on above: 5-50 0.2-1 WEEK 50-500 1-2 WEEKS 100-5,000 2-3 WEEKS 500-10,000 3-4 WEEKS 1,000-50,000 4-5 WEEKS 10,000-100,000 5-6 WEEKS 15,000-200,000 6-8 WEEKS 10,000-100,000 2-3 MONTHS [facility] Surgical Pathology Reporton 10-17-2023 Surgical Pathology Report [address] [place] [address]- Surgical Pathology Report Collected Date/Time: 10/15/2023 09:32 [...] is entirely submitted in one cassette. (DC) DC:[facility] Microscopic Description A-C: Microscopic examination performed unless gross only specified. The use of one or more reagents in the above tests is regulated as an analyte specific reagent (ASR). The test or tests are ordered following initial H&E microscopic examination. The performance characteristics were determined by the Laboratory of [facility]. They have not been cleared or approved by the US Food and Drug Administration. The FDA has determined that such clearance or approval is not necessary. These tests are used for clinical purposes. They should not be regarded as investigational or for research. Appropriate positive and negative controls are performed and are acceptable. Normal [facility] Comment on above: Performed By: #### [id number] #### [facility] Laboratory [address] [place] [address] Main OR Intraoperative Recor don 10-16-2023 Main OR Intraoperative Record Main OR Intraoperative Record IntraOp Document Type FT Summary Primary Physician: Alex Knutson MD Finalized Date/Time: 10/16/23 12:11:53 Pt. Name: ALMA ROSAINDU/Sex: 1995 Female Med Rec #: [id number] Physician: Alex Knutson MD Financial #: [id number] Pt. Type: O Room/Bed: / Admit/Disch: 10/15/23 [...] RN, Promise Willis Role Performed Anesthesiologist of Mouthpiece Maker - Primary Scrub - Primary Record Time In 10/15/23 09:16:00 10/15/23 09:16:00 10/15/23 09:16:00 Time Out 10/15/23 09:40:00 10/15/23 09:40:00 10/15/23 09:40:00 Procedure EGD AND COLONOSCOPY(.) EGD AND COLONOSCOPY(.) EGD AND COLONOSCOPY(.) Comments Last Modified By: Kristen Amin RN, RN, Kristen Larsen RN 10/15/23 09:40:17 10/15/23 [...] DO, Kristen Amin RN, Miles, Kirstyn K, Zenia ELLISON, Alex Berry Time Out Complete 10/15/23 09:19:00 Outcomes [...] and tissue Entry 1 Skin Integrity Intact, [place], Warm, & Skin Abnormality No Dry Outcomes [...] and symptom (more content not included)... Normal [facility] B hCG Qualon 10-15-2023 Beta HCG ( test) Ql Negative Normal [facility] Comment on above: Performed By: #### [id number] #### [facility] [address] [place] [address] Discharge Instructionson Discharge Instructions Discharge Instruc tions [...] weeks Comments: Call for any problems. Where: [address] [place] [address], [address] [place] [address]- [phone] Business (1) Medications What How Much When [...] MEDICATIONS Yo (more content not included)... Normal [facility] Comment on above: Result Comment: Elec tronically Signed By: Obi WHITE, Mery\.seble\Date and Time Signed: 10/15/23 09:50 EDT Noemi 10-15-2023 Esophagogastroduodenosc opy EGD Patient: INDU ST Age: 28 years Sex: Female : 1995 Associated Diagnoses: None Author: MoAlex malik MD Pre-Procedure Procedure Date 10/15/2023 09:52:00 . [...] Daily, # 527 gm, Refills(s) 5, Pharmacy: [facility] #[id number], 167, cm, 09/13/23 14:57:00 EDT, Height/Length Dosing, 48.9, kg, 09/13/23 14:57:00 EDT, Weight Dosing Pantoprazole [address] Tab: 40 mg = 1 tab(s), Oral, Daily, # 30 tab(s), Refills(s) 4, Pharmacy: [facility] #[id number], 167, cm, 09/13/23 14:57:00 EDT, Height/Length Dosing, [...] duodenum. Biopsies obtained Images Procedure images: Rec1_hd_video_ [id number].jpg Rec_hd_video_ [id number].jpg Rec1_hd_video_ [id number].jpg Rec_hd_video_ [id number].jpg Rec1_hd_video_ [id number].jpg Rec1_hd_video_ [id number].jpg . Post-Procedure Complications: none. Estimated blood loss: minimal. Specimens: sent to pathology. Devices/ implants: none left in place. Impression and Plan mild gastropathy Recommendations: -Resume previous diet -Resume home medications -Await pathology results, follow in GI clinic in 1-2 after discharge Normal [facility] Comment on above: Other Comment: Griselda blanco Attachment - attachment storage system not supported [id number] Can be viewed in source system Missing Attachment - attachment storage system not supported [id number] Can be viewed in source system Missing Attachment - attachment storage system not supported [id number] Can be viewed in source system Missing Attachment - attachment storage system not supported [id number] Can be viewed in source system Missing Attachment - attachment storage system not supported [id number] Can be viewed in source system Missing Attachment - attachment storage system not supported [id number] Can be viewed in source system Main OR PACU I Recordon 10-03 Main OR PACU I Record Main OR PACU I Rec ord PACU Phase I Document Type FT Summary Primary Physician: Alex Knutson MD Finalized Date/Time: 10/15/23 10:19:29 Pt. Name: INDU ST/Sex: 1995 Female Med Rec #: [id number] Physician: Alex Knutson MD Financial #: [id number] Pt. Type: O Room/Bed: / Admit/Disch: 10/15/23 [...] By: Mery Crocker RN 10/15/23 10:19 Normal [facility] Main OR Preoperative Recordo n 10-15-2023 Main OR Preoperative Record Main OR Preoperative Record Holding Area Document Type FT Summary Primary Physician: Alex Knutson MD Finalized Date/Time: 10/15/23 07:13:13 Pt. Name: INDU ST/Sex: 1995 Female Med Rec #: [id number] Physician: Alex Knutson MD Financial #: [id number] Pt. Type: O Room/Bed: / Admit/Disch: 10/15/23 [...] By: Ofe Atkins RN 10/15/23 07:13 Normal [facility] SEROLOGYOrdered By: Germaine Sauer on 10-15-2023 Beta HCG ( test) Ql Negative (10/15/23 7:55 AM) Normal [facility] Ambulatory Visit Summaryon 0 09-13-2023 [...] Appointments Sunday 9:00 AM EDT Where: [facility] Medications What How Much When Why Instructions New pantoprazole (Pantoprazole [address] Tab) 1 Tablets By Mouth Every day Weight loss Nausea and vomiting Heartburn Bipolar disorder Stress-related physiological response affecting medical condition Visceral hypersensitivity syndrome Refills: 4 Pickup at [facility][id number] New polyethylene glycol 3350 (Miralax 3350 17 gram packet) 17 Gram By Mouth Every day Weight loss Nausea and vomiting Heartburn Bipolar disorder Stress-related physiological response affecting medical condition Visceral hypersensitivity syndrome Refills: 5 Pickup at [facility] #[id number] Unchanged alprazolam (Xanax 0.5 mg Tab) 1 [...] physician if questions or concerns Pharmacy Information [facility][id number]: [address] [place], [place] [id number] [phone] Allergies No Known Medication Allergies Problems Ongoing [...] you for choosing us for your care. Normal [facility] Gastroenterology Office/Clin ic Noteon 09-13-2023 [...] Daily, # 30 tab(s), Refills(s) 4, Pharmacy: [facility] #[id number], 167, cm, 09/13/23 14:57:00 EDT, Height/Length Dosing, 48.9, kg, 09/13/23 14:57:00 EDT, Weight Dosing polyethylene glycol 3350, 17 gm, Oral, Daily, # 527 gm, Refills(s) 5, Pharmacy: [facility] #[id number], 167, cm, 09/13/23 14:57:00 EDT, Height/Length Dosing, 48.9, kg, 09/13/23 14:57:00 EDT, Weight Dosing Colonoscopy (Hospital Procedure) EGD Endoscopy (Hospital Procedure) 2. Nausea and vomiting (R11.2: Nausea with vomiting, unspecified) Ordered: pantoprazole, 40 mg = 1 tab(s), Oral, Daily, # 30 tab(s), Refills(s) 4, Pharmacy: [email or web address] #[id number], 167, cm, 09/13/23 14:57:00 EDT, Height/Length Dosing, 48.9, kg, 09/13/23 14:57:00 EDT, Weight Dosing polyethylene glycol 3350, 17 gm, Oral, Daily, # 527 gm, Refills(s) 5, Pharmacy: [email or web address] #[id number], 167, cm, 09/13/23 14:57:00 EDT, Height/Length Dosing, 48.9, kg, 09/13/23 14:57:00 EDT, Weight Dosing Colonoscopy (Hospital Procedure) EGD Endoscopy (Hospital Procedure) 3. Heartburn (R12: Heartburn) Ordered: pantoprazole, 40 mg = 1 tab(s), Oral, Daily, # 30 tab(s), Refills(s) 4, Pharmacy: [facility] #[id number], 167, cm, 09/13/23 14:57:00 EDT, Height/Length Dosing, 48.9, kg, 09/13/23 14:57:00 EDT, Weight Dosing polyethylene glycol 3350, 17 gm, Oral, Daily, # 527 gm, Refills(s) 5, Pharmacy: [email or web address] #[id number], 167, cm, 09/13/23 14:57:00 EDT, Height/Length Dosing, 48.9, kg, 09/13/23 14:57:00 EDT, Weight Dosing Colonoscopy (Hospital Procedure) EGD Endoscopy (Hospital Procedure) 4. Bipolar disorder (F31.9: Bipolar disorder, unspecified) Ordered: pantoprazole, 40 mg (more content not included)... Normal [facility] Comment on above: Result Comment: Elec tronically Signed By: Zenia ELLISON, Alex Kapoor.br\Date and Time Signed: 09/13/23 15:22 EDT Angelic 08-14-2023 JOSEN Telephone (ENDOMN) -------- ALMA ROSAINDU ROCA ([id number]) 1995 F Date Time Provider Department 08/14/23 KARINA CUMMINGS During your visit today, we recorded the following information about you: Twyla Salcedo MA 08/14/2023 11:09 AM Signed Received MRI results completed 08/02/2023, scanned to chart Twyla Salcedo Occupational Therapist II Endocrinology AND Metabolism [place] [facility] F20 AND X20 Allergies As of Date: 08/14/2023 (Not on File) Date Reviewed: Never Reviewed Reason for Visit: Results [95] Prescriptions as of 08/14/2023 - Norethindrone Acet-Ethinyl Est (LOESTRIN 03/24, 21,) 1-20 mg-mcg per tablet Take 1 tablet by mouth once daily. in continuous fashion - estradiol (ESTRACE) 2 mg tablet Take 1 tablet by mouth once daily. x 1 week for breakthrough bleeding Problem List As Of Date: 08/14/2023 (None) Encounter Status:Closed by TWYLA SALCEDO on 08/14/23 Normal [facility] CBC W Auto Differential pane l (Bld)on 07-20-2023 Basophils (Bld) [#/Vol] 0.03 10*3/uL [facility] Basophils/100 WBC (Bld) 0.3 % 0.0 - 2.0 % [facility] Eosinophils (Bld) [#/Vol] 0.00 10*3/uL [facility] Eosinophils/100 WBC (Bld) 0.0 % 0.0 - 6.0 % [facility] Erythrocyte distribution width (RBC) [Ratio] 14.5 % 11.5 - 14.5 % [facility] Hematocrit (Bld) [Volume fraction] 39.1 % 36.0 - 46.0 % [facility] Hemoglobin (Bld) [Mass/Vol] 13.5 g/dL 12.0 - 16.0 g/dL [facility] Immature granulocytes (Bld) [#/Vol] 0.03 10*3/uL [facility] Immature granulocytes/100 WBC (Bld) 0.3 % 0.0 - 0.9 % [facility] Comment on above: Immature Granulocyte Count (IG) includes promyelocytes, myelocytes and metamyelocytes but does not include bands. Percent differential counts (%) should be interpreted in the context of the absolute cell counts (cells/UL). Interpretation and review of laboratory results Abnormal [facility] Lymphocytes (Bld) [#/Vol] 0.98 10*3/uL Low [facility] Lymphocytes/100 WBC (Bld) 8.5 % 13.0 - 44.0 % [facility] MCH (RBC) [Entitic mass] 28.7 pg 26.0 - 34.0 pg [facility] MCHC (RBC) [Mass/Vol] 34.5 g/dL 32.0 - 36.0 g/dL [facility] MCV (RBC) [Entitic vol] 83 fL 80 - 100 fL [facility] Monocytes (Bld) [#/Vol] 0.13 10*3/uL [facility] Monocytes/100 WBC (Bld) 1.1 % 2.0 - 10.0 % [facility] Neutrophils (Bld) [#/Vol] 10.32 10*3/uL High [facility] Comment on above: Percent differential counts (%) should be interpreted in the context of the absolute cell counts (cells/uL). Neutrophils/100 WBC (Bld) 89.8 % 40.0 - 80.0 % [facility] Nucleated RBC/100 WBC (Bld) [Ratio] 0.0 % [facility] Platelets (Bld) [#/Vol] 290 10*3/uL [facility] RBC (Bld) [#/Vol] 4.71 10*6/uL [facility] WBC (Bld) [#/Vol] 11.5 10*3/uL High [facility] Basophils (Bld) [#/Vol] 0.03 x10*3/uL Normal 0.00-0.10 [facility] Comment on above: Performed By: #### 5 7021-8 #### JIMENA Mark ([id number]) [facility] ([facility]) [address] [place] [address] Basophils/100 WBC (Bld) 0.3 % Normal 0.0-2.0 [facility] Comment on above: Performed By: #### 5 7021-8 #### JIMENA Mark ([id number]) [facility] ([facility]) [address] [place] [address] Eosinophils (Bld) [#/Vol] 0.00 x10*3/uL Normal 0.00-0.70 [facility] Comment on above: Performed By: #### 5 7021-8 #### JIMENA Mark ([id number]) [facility] ([facility]) [address] [place] [address] Eosinophils/100 WBC (Bld) 0.0 % Normal 0.0-6.0 [facility] Comment on above: Performed By: #### 5 7021-8 #### JIMENA Mark ([id number]) [facility] ([facility]) [address] [place] [address] Erythrocyte distribution width (RBC) [Ratio] 14.5 % Normal 11.5-14.5 [facility] Comment on above: Performed By: #### 5 7021-8 #### JIMENA Mark ([id number]) [facility] ([facility]) [address] [place] [address] Hematocrit (Bld) [Volume fraction] 39.1 % Normal 36.0-46.0 [facility] Comment on above: Performed By: #### 5 7021-8 #### JIMENA Mark ([id number]) [facility] ([facility]) [address] [place] [address] Hemoglobin (Bld) [Mass/Vol] 13.5 g/dL Normal 12.0-16.0 [facility] Comment on above: Performed By: #### 5 7021-8 #### JIMENA Mark ([id number]) [facility] ([facility]) [address] [place] [address] 38851 Immature granulocytes (Bld) [#/Vol] 0.03 x10*3/uL Normal 0.00-0.70 [facility] Comment on above: Performed By: #### 5 7021-8 #### JIMENA Mark ([id number]) [facility] ([facility]) [address] [place] [address]602 Immature granulocytes/100 WBC (Bld) 0.3 % Normal 0.0-0.9 [facility] Comment on above: Result Comment: Yanet ture Granulocyte Count (IG) includes promyelocytes, myelocytes and metamyelocytes but does not include bands. Percent differential counts (%) should be interpreted in the context of the absolute cell counts (cells/UL). Performed By: #### 5 7021-8 #### JIMENA Mark ([id number]) [facility] ([facility]) [address] [place] [address] 38909 Lymphocytes (Bld) [#/Vol] 0.98 x10*3/uL Low 1.20-4.80 [facility] Comment on above: Performed By: #### 5 7021-8 #### JIMENA Mark ([id number]) [facility] ([facility]) [address] [place] [address] 25816 Lymphocytes/100 WBC (Bld) 8.5 % Normal 13.0-44.0 [facility] Comment on above: Performed By: #### 5 7021-8 #### JIMENA Mark ([id number]) [facility] ([facility]) [address] [place] [address] 77796 MCH (RBC) [Entitic mass] 28.7 pg Normal 26.0-34.0 [facility] Comment on above: Performed By: #### 5 7021-8 #### JIMENA Mark ([id number]) [facility] ([facility]) [address] [place] [address] 68087 MCHC (RBC) [Mass/Vol] 34.5 g/dL Normal 32.0-36.0 [facility] Comment on above: Performed By: #### 5 7021-8 #### JIMENA Mark ([id number]) [facility] ([facility]) [address] [place] [address] 34484 MCV (RBC) [Entitic vol] 83 fL Normal 80-100 [facility] Comment on above: Performed By: #### 5 7021-8 #### JIMENA Mark ([id number]) [facility] ([facility]) [address] [place] [address] 94765 Monocytes (Bld) [#/Vol] 0.13 x10*3/uL Normal 0.10-1.00 [facility] Comment on above: Performed By: #### 5 7021-8 #### JIMENA Mark ([id number]) [facility] ([facility]) [address] [place] [address] 02315 Monocytes/100 WBC (Bld) 1.1 % Normal 2.0-10.0 [facility] Comment on above: Performed By: #### 5 7021-8 #### JIMENA Mark ([id number]) [facility] ([facility]) [address] [place] [address] 71659 Neutrophils (Bld) [#/Vol] 10.32 x10*3/uL High 1.20-7.70 [facility] Comment on above: Result Comment: Perc ent differential counts (%) should be interpreted in the context of the absolute cell counts (cells/uL). Performed By: #### 5 7021-8 #### JIMENA Mark ([id number]) [facility] ([facility]) [address] [place] [address] 87509 Neutrophils/100 WBC (Bld) 89.8 % Normal 40.0-80.0 [facility] Comment on above: Performed By: #### 5 7021-8 #### JIMENA Mark ([id number]) [facility] ([facility]) [address] [place] [address] 27670 Nucleated RBC/100 WBC (Bld) [Ratio] 0.0 /100 WBCs Normal 0.0-0.0 [facility] Comment on above: Performed By: #### 5 7021-8 #### JIMENA Mark ([id number]) [facility] ([facility]) [address] [place] [address] 18321 Platelets (Bld) [#/Vol] 290 x10*3/uL Normal 150-450 [facility] Comment on above: Performed By: #### 5 7021-8 #### JIMENA Mark ([id number]) [facility] ([facility]) [address] [place] [address] 99996 RBC (Bld) [#/Vol] 4.71 x10*6/uL Normal 4.00-5.20 [facility] Comment on above: Performed By: #### 5 7021-8 #### JIMENA Mark ([id number]) [facility] ([facility]) [address] [place] [address] 37772 WBC (Bld) [#/Vol] 11.5 x10*3/uL High 4.4-11.3 [facility] Comment on above: Performed By: #### 5 7021-8 #### JIMENA Mark ([id number]) [facility] ([facility]) [address] [place] [id number] CHEST ABDOMEN PELVIS W IV CONTRASTon 07-20-2023 CT CHEST ABDOMEN PELVIS W IV CONTRAST Interpreted By: Mag Santiago, STUDY: CT CHEST ABDOMEN PELVIS W IV CONTRAST; 07/20/2023 5:39 pm INDICATION: Signs/Symptoms:Persisten t vomiting, epigastric pain in the chest.. COMPARISON: Chest x-ray 07/20/2023. ACCESSION NUMBER(S): [id number] ORDERING CLINICIAN: ABIODUN OCHOA TECHNIQUE: Axial CT [...] Mag Santiago 07/20/2023 6:51 PM Dictation workstation: [id number] [facility] CT Chest and Abdomen and Pel [...] Mag Santiago 07/20/2023 6:51 PM Dictation workstation: [id number] Interpreted By: Mag Santiago, STUDY: CT CHEST ABDOMEN PELVIS W IV CONTRAST; 07/20/2023 5:39 pm INDICATION: Signs/Symptoms:Persisten t vomiting, epigastric pain in the chest.. COMPARISON: Chest x-ray 07/20/2023. ACCESSION NUMBER(S): [id number] ORDERING CLINICIAN: ABIODUN OCHOA TECHNIQUE: Axial CT [...] chest.. COMPARISON: Chest x-ray 07/20/2023. ACCESSION NUMBER(S): [id number] ORDERING CLINICIAN: ABIODUN OCHOA TECHNIQUE: Axial CT [...] Mag Santiago 07/20/2023 6:51 PM Dictation workstation: [id number] [facility] Work Phone: Radiology Study observation (narrative) [facility] Work Phone: CT Chest and Abdomen and Pel vis W contrast IVOrdered By: Mag Santiago on 07-20-2023 [facility] Work Phone: Choriogonadotropin.beta subu niton 07-20-2023 HCG.beta subunit Qn m[IU]/mL Normal <5 [facility] Comment on above: Order Comment: Total HCG measurement is performed using the Jade Bradley Access Immunoassay which detects intact HCG and free beta HCG subunit. This test is not indicated for use as a tumor marker. HCG testing is performed using a different test methodology at [facility] than other [facility]. Direct result comparison should only be made within the same method. Performed By: #### 2 1198-7 #### JIMENA Mark ([id number]) [facility] ([facility]) [address] [place] [address] Comprehensive metabolic 2000 panelon 07-20-2023 Albumin BCP dye [Mass/Vol] 4.7 g/dL 3.4 - 5.0 g/dL [facility] ALP [Catalytic activity/Vol] 47 U/L 33 - 110 U/L [facility] ALT With P-5'-P [Catalytic activity/Vol] 14 U/L 7 - 45 U/L [facility] Comment on above: Patients treated wit h Sulfasalazine may generate falsely decreased results for ALT. Anion gap [Moles/Vol] 18 mmol/L 10 - 2 0 mmol/L [facility] AST With P-5'-P [Catalytic activity/Vol] 15 U/L 9 - 39 U/L [facility] Bilirubin [Mass/Vol] 0.6 mg/dL 0.0 - 1 .2 mg/dL [facility] Calcium [Mass/Vol] 9.8 mg/dL 8.6 - 10. 3 mg/dL [facility] Chloride [Moles/Vol] 105 mmol/L 98 - 10 7 mmol/L [facility] CO2 [Moles/Vol] 19 mmol/L Low 21 - 32 mmol/L [facility] Creatinine [Mass/Vol] 0.77 mg/dL 0.50 - 1.05 mg/dL [facility] eGFR - PINF [facility] Comment on above: Calculations of lesli mated GFR are performed using the 2020 CKD-EPI Study Refit equation without the race variable for the IDMS-Traceable creatinine methods. https://jasn.asnjournals.org/content/early/ASN.2020 769771 Glucose [Mass/Vol] 147 mg/dL High 74 - 99 mg/dL [facility] Interpretation and review of laboratory results Abnormal [facility] Potassium [Moles/Vol] 3.8 mmol/L 3.5 - 5.3 mmol/L [facility] Protein [Mass/Vol] 7.3 g/dL 6.4 - 8.2 g/dL [facility] Sodium [Moles/Vol] 138 mmol/L 136 - 145 mmol/L [facility] Urea nitrogen [Mass/Vol] 15 mg/dL 6 - 23 mg/dL [facility] Albumin BCP dye [Mass/Vol] 4.7 g/dL Normal 3.4-5.0 [facility] Comment on above: Performed By: #### 2 4323-8 #### JIMENA Mark ([id number]) [facility] ([facility]) [address] [place] [address] ALP [Catalytic activity/Vol] 47 U/L Normal 33-110 [facility] Comment on above: Performed By: #### 2 4323-8 #### JIMENA Mark ([id number]) [facility] ([facility]) [address] [place] [address] ALT With P-5'-P [Catalytic activity/Vol] 14 U/L Normal 7-45 [facility] Comment on above: Result Comment: Edel ents treated with Sulfasalazine may generate falsely decreased results for ALT. Performed By: #### 2 4323-8 #### JIMENA Mark ([id number]) [facility] ([facility]) [address] [place] [address] Anion gap [Moles/Vol] 18 mmol/L Normal 10-20 [facility] Comment on above: Performed By: #### 2 4323-8 #### JIMENA Mark ([id number]) [facility] ([facility]) [address] [place] [address] AST With P-5'-P [Catalytic activity/Vol] 15 U/L Normal 9-39 [facility] Comment on above: Performed By: #### 2 4323-8 #### JIMENA Mark ([id number]) [facility] ([facility]) [address] [place] [address] Bilirubin [Mass/Vol] 0.6 mg/dL Normal 0.0-1.2 [facility] Comment on above: Performed By: #### 2 4323-8 #### JIMENA Mark ([id number]) [facility] ([facility]) [address] [place] [address] Calcium [Mass/Vol] 9.8 mg/dL Normal 8.6-10.3 [facility] Comment on above: Performed By: #### 2 4323-8 #### JIMENA Mark ([id number]) [facility] ([facility]) [address] [place] [address] Chloride [Moles/Vol] 105 mmol/L Normal 98-107 [facility] Comment on above: Performed By: #### 2 4323-8 #### JIMENA Mark ([id number]) [facility] ([facility]) [address] [place] [address] 97577 CO2 [Moles/Vol] 19 mmol/L Low 21-[address] [facility] Comment on above: Performed By: #### 2 4323-8 #### JIMENA Mark ([id number]) [facility] ([facility]) [address] [place] [address] 79957 Creatinine [Mass/Vol] 0.77 mg/dL Normal 0.50-1.05 [facility] Comment on above: Performed By: #### 2 4323-8 #### JIMENA Mark ([id number]) [facility] ([facility]) [address] [place] [address] 79673 GFR/1.73 sq M.predicted MDRD (S/P/Bld) [Vol rate/Area] mL/min/{1.73_m2} Normal >60 [facility] Comment on above: Result Comment: Calc ulations of estimated GFR are performed using the 2020 CKD-EPI Study Refit equation without the race variable for the IDMS-Traceable creatinine methods. https://jasn.asnjournals.org/content/early//ASN.2020 846462 Performed By: #### 2 4323-8 #### JIMENA Mark ([id number]) [facility] ([facility]) [address] [place] [address] 29943 Glucose [Mass/Vol] 147 mg/dL High 74-99 [facility] Comment on above: Performed By: #### 2 4323-8 #### JIMENA Mark ([id number]) [facility] ([facility]) [address] [place] [address]10 Potassium [Moles/Vol] 3.8 mmol/L Normal 3.5-5.3 [facility] Comment on above: Performed By: #### 2 4323-8 #### JIMENA Mark ([id number]) [facility] ([facility]) [address] [place] [address] 09375 Protein [Mass/Vol] 7.3 g/dL Normal 6.4-8.2 [facility] Comment on above: Performed By: #### 2 4323-8 #### JIMENA Mark ([id number]) [facility] ([facility]) [address] [place] [address] 85240 Sodium [Moles/Vol] 138 mmol/L Normal 136-145 [facility] Comment on above: Performed By: #### 2 4323-8 #### JIMENA Mark ([id number]) [facility] ([facility]) [address] [place] [address] 26164 Urea nitrogen [Mass/Vol] 15 mg/dL Normal 6-23 [facility] Comment on above: Performed By: #### 2 4323-8 #### JIMENA Mark ([id number]) [facility] ([facility]) [address] [place] [address] 68182 DRUG SCREEN,URINEon 07-20-19 24 Amphetamines Screen Ql (U) Negative Normal Presumptive Negative [facility] Comment on above: Order Comment: Drug screen results are presumptive and should not be used to assess compliance with prescribed medication. Contact the performing [facility] laboratory to add-on definitive confirmatory testing if [...] By: #### D RUG3 #### JIMENA Mark ([id number]) [facility] ([facility]) [address] [place] [address] Barbiturates Screen Ql (U) Negative Normal Presumptive Negative [facility] Comment on above: Order Comment: Drug screen results are presumptive and should not be used to assess compliance with prescribed medication. Contact the performing [facility] laboratory to add-on definitive confirmatory testing if [...] By: #### D RUG3 #### JIMENA Mark ([id number]) [facility] ([facility]) [address] [place] [address] 18261 Benzodiazepines Ql (U) Negative Normal Presu mptive Negative [facility] Comment on above: Order Comment: Drug screen results are presumptive and should not be used to assess compliance with prescribed medication. Contact the performing [facility] laboratory to add-on definitive confirmatory testing if [...] By: #### D RUG3 #### JIMENA Mark ([id number]) [facility] ([facility]) [address] [place] [address] 30269 Benzoylecgonine Screen Ql (U) Negative Normal Presumptive Negative [facility] Comment on above: Order Comment: Drug screen results are presumptive and should not be used to assess compliance with prescribed medication. Contact the performing [facility] laboratory to add-on definitive confirmatory testing if [...] By: #### D RUG3 #### JIMENA Mark ([id number]) [facility] ([facility]) [address] [place] [address] 41486 Cannabinoids Screen Ql (U) Positive Abnormal Presumptive Negative [facility] Comment on above: Order Comment: Drug screen results are presumptive and should not be used to assess compliance with prescribed medication. Contact the performing [facility] laboratory to add-on definitive confirmatory testing if [...] By: #### D RUG3 #### JIMENA Mark ([id number]) [facility] ([facility]) [address] [place] [address] 34691 fentaNYL+Norfentanyl Screen Ql (U) Negative Normal Presumptive Negative [facility] Comment on above: Order Comment: Drug screen results are presumptive and should not be used to assess compliance with prescribed medication. Contact the performing [facility] laboratory to add-on definitive confirmatory testing if [...] FF LEVEL: 5 NG/ML Performed By: #### Kobi RUG3 #### JIMENA Mark ([id number]) [facility] ([facility]) [address] [place] [address] 25994 Methadone Screen Ql (U) Negative Normal Pres umptive Negative [facility] Comment on above: Order Comment: Drug screen results are presumptive and should not be used to assess compliance with prescribed medication. Contact the performing [facility] laboratory to add-on definitive confirmatory testing if [...] CUTO FF LEVEL: 150 NG/ML The metabolite W-dbrqb-labftggjobebex (LAAM) is not detected by this method in concentrations that would be found in the urine of patients on LAAM therapy. Performed By: #### Kobi RUG3 #### JIMENA Mark ([id number]) [facility] ([facility]) [address] [place] [address] Opiates Screen Ql (U) Negative Normal Presum ptive Negative [facility] Comment on above: Order Comment: Drug screen results are presumptive and should not be used to assess compliance with prescribed medication. Contact the performing [facility] laboratory to add-on definitive confirmatory testing if [...] By: #### Kobi RUG3 #### JIMENA Mark ([id number]) [facility] ([facility]) [address] [place] [address] 81208 oxyCODONE+oxyMORphone Screen Ql (U) Negative Normal Presumptive Negative [facility] Comment on above: Order Comment: Drug screen results are presumptive and should not be used to assess compliance with prescribed medication. Contact the performing [facility] laboratory to add-on definitive confirmatory testing if [...] By: #### D RUG3 #### JIMENA Mark ([id number]) [facility] ([facility]) [address] [place] [address] 33187 Phencyclidine Ql (U) Negative Normal Presump tive Negative [facility] Comment on above: Order Comment: Drug screen results are presumptive and should not be used to assess compliance with prescribed medication. Contact the performing [facility] laboratory to add-on definitive confirmatory testing if [...] By: #### Kobi RUG3 #### JIMENA Mark ([id number]) [facility] ([facility]) [address] [place] [address] 12251 Drug Screen, Urineon 024 Amphetamines Screen Ql (U) Negative Presumptive Negative [facility] Comment on above: CUTOFF LEVEL: 500 NG /ML Cross-reactivity has been reported with high concentrations of the following drugs: buproprion, chloroquine, chlorpromazine, ephedrine, mephentermine, fenfluramine, phentermine, phenylpropanolamine, pseudoephedrine, and propranolol. Barbiturates Screen Ql (U) Negative Presumptive Negative [facility] Comment on above: CUTOFF LEVEL: 200 NG /ML Benzodiazepines Ql (U) Negative Presu mptive Negative [facility] Comment on above: CUTOFF LEVEL: 200 NG /ML Benzoylecgonine Screen Ql (U) Negative Presumptive Negative [facility] Comment on above: CUTOFF LEVEL: 150 NG /ML Cannabinoids Screen Ql (U) Positive Abnormal Presumptive Negative [facility] Comment on above: CUTOFF LEVEL: 50 NG/ ML fentaNYL+Norfentanyl Screen Ql (U) Negative Presumptive Negative [facility] Comment on above: CUTOFF LEVEL: 5 NG/M L Interpretation and review of laboratory results Abnormal [facility] Methadone Screen Ql (U) Negative Pres umptive Negative [facility] Comment on above: CUTOFF LEVEL: 150 NG /ML The metabolite R-kilwk-aspuiscochdmqp (LAAM) is not detected by this method in concentrations that would be found in the urine of patients on LAAM therapy. Opiates Screen Ql (U) Negative Presum ptive Negative [facility] Comment on above: CUTOFF LEVEL: 300 NG /ML The opiate screen does not detect fentanyl, meperidine, or tramadol. Oxycodone is not consistently detected (refer to Oxycodone Screen, Urine result). oxyCODONE+oxyMORphone Screen Ql (U) Negative Presumptive Negative [facility] Comment on above: CUTOFF LEVEL: 100 NG /ML This test will accurately detect both oxycodone and oxymorphone. Phencyclidine Ql (U) Negative Presump tive Negative [facility] Comment on above: CUTOFF LEVEL: 25 NG/ ML Cross-reactivity has been reported with dextromethorphan. Drug screen results are presumptive and should not be used to assess compliance with prescribed medication. Contact the performing [facility] laboratory to add-on definitive confirmatory testing if [...] be directed to the laboratory medical directors. [facility] ECG 12-LEADon 07-20-2023 ECG 12-LEAD Ventricular Rate 68 Atrial Rate 67 P-R Interval 110 QRS Duration 126 Q-T Interval 419 QTC Calculation(Bazett) 446 P Grenora 82 R Grenora 77 T Grenora 67 QRS Count 11 Q Onset 249 T Offset 459 QTC Fredericia 437 Diagnosis Sinus rhythm Borderline short GA interval Nonspecific intraventricular conduction delay ST elev, probable normal early repol pattern See ED provider note for full interpretation and clinical correlation Confirmed by Lynsey Luna ([id number]) on 07/28/2023 12:23:14 PM Normal [facility] HCG.beta subunit Qnon 2023 Interpretation and review of laboratory results Normal [facility] Total HCG measuremen t is performed using the Jade Saleem Access Immunoassay which detects intact HCG and free beta HCG subunit. This test is not indicated for use as a tumor marker. HCG testing is performed using a different test methodology at [facility] than other [facility]. Direct result comparison should only be made within the same method. [facility] Human Chorionic Gonadotropin , Serum Quantitativeon 07-20-2023 HCG.beta subunit Qn NINF [facility] Lactateon 07-20-2023 Lactate [Moles/Vol] 1.4 mmol/L 0.4 - 2. 0 mmol/L [facility] Lactate [Moles/Vol] 1.4 mmol/L Normal 0.4-2.0 [facility] Comment on above: Order Comment: Venip uncture immediately after or during the administration of Metamizole may lead to falsely low results. Testing should be performed immediately prior to Metamizole dosing. Performed By: #### 2 524-7 #### JIMENA Mark ([id number]) [facility] ([facility]) [address] [place] [address] 39394 Lactate [Moles/Vol] 2.2 mmol/L High 0.4 - 2. 0 mmol/L [facility] Lactate [Moles/Vol] 2.2 mmol/L High 0.4-2.0 [facility] Comment on above: Order Comment: Venip uncture immediately after or during the administration of Metamizole may lead to falsely low results. Testing should be performed immediately prior to Metamizole dosing. Performed By: #### 2 524-7 #### JIMENA Mark ([id number]) [facility] ([facility]) [address] [place] [address] 26855 Lactate [Moles/Vol]on 2023 Interpretation and review of laboratory results Normal [facility] Venipuncture immedia tely after or during the administration of Metamizole may lead to falsely low results. Testing should be performed immediately prior to Metamizole dosing. [facility] Interpretation and review of laboratory results Abnormal [facility] Venipuncture immedia tely after or during the administration of Metamizole may lead to falsely low results. Testing should be performed immediately prior to Metamizole dosing. [facility] Lipaseon 07-20-2023 Lipase [Catalytic activity/Vol] 10 U/L U/L [facility] Lipase [Catalytic activity/V ol]on 07-20-2023 Interpretation and review of laboratory results Normal [facility] Venipuncture immedia tely after or during the administration of Metamizole may lead to falsely low results. Testing should be performed immediately prior to Metamizole dosing. [facility] Triacylglycerol lipaseon Lipase [Catalytic activity/Vol] 10 U/L Normal [facility] Comment on above: Order Comment: Venip uncture immediately after or during the administration of Metamizole may lead to falsely low results. Testing should be performed immediately prior to Metamizole dosing. Performed By: #### 3 040-3 #### JIMENA Mark ([id number]) [facility] ([facility]) [address] [place] [address] 33757 Tropinin I.cardiac panel Hig h sensitivity methodon 07-20-2023 Interpretation and review of laboratory results Normal [facility] Less than 99th percentile of normal [...] performed using a different testing methodology at [facility] than at other [facility]. Direct result comparisons should only be made within the same method. [facility] Troponin I, High Sensitivity on 07-20-2023 Tropinin I.cardiac panel High sensitivity method ng/L 0 - 13 ng/L [facility] Troponin I.cardiac panelon 0 07-20-2023 Tropinin I.cardiac panel High sensitivity method <3 Normal 0-13 [facility] Comment on above: Order Comment: Venip uncture immediately after or during the administration of Metamizole may lead to falsely low results. Testing should be performed immediately prior to Metamizole dosing. Performed By: #### 2 524-7 #### JIMENA Mark ([id number]) [facility] (C) [address] [place] [address] 26914 Urinalysis complete W Reflex Culture panel (U)on 07-20-2023 Appearance (U) Hazy Abnormal Clear [facility] Bilirubin (U) [Mass/Vol] Negative NEGATIVE [facility] Color (U) Yellow Straw, Yellow [facility] Epithelial cells.squamous Auto (Urine sed) [#/Area] 1-9 (SPARSE) Reference range not established. /HPF [facility] Glucose Auto test strip (U) [Mass/Vol] Negative NEGATIVE mg/dL [facility] Interpretation and review of laboratory results Abnormal [facility] Ketones (U) [Mass/Vol] 80 (2+) Abnormal NEGAT JAMES mg/dL [facility] Leukocyte esterase Auto test strip Ql (U) Negative NEGATIVE [facility] Mucus Auto (Urine sed) [#/Area] 4+ Reference range not established. /LPF [facility] Nitrite Auto test strip Ql (U) Negative NEGATIVE [facility] pH (U) 9.0 [pH] Abnormal 5.0, 5.5, 6.0, 6.5, 7.0, 7.5, 8.0 [facility] Protein (U) [Mass/Vol] >=500 (3+) Abnormal NEGAT JAMES mg/dL [facility] RBC (U) [#/Vol] Negative NEGATIVE [facility] RBC Auto (Urine sed) [#/Area] 1-2 NONE, 1-2, 3-5 /HPF [facility] Specific gravity (U) [Rel density] 1.025 1.005 - 1.035 [facility] Urobilinogen (U) [Mass/Vol] mg/dL NINF - 2.0 mg/dL [facility] WBC Auto (Urine sed) [#/Area] 1-5 1-5, NONE /HPF [facility] Yeast.budding Computer assisted (U) [#/Area] PRESENT Abnormal NONE /HPF [facility] Appearance (U) Hazy Normal Clear [facility] Comment on above: Performed By: #### 5 8077-9 #### JIMENA Mark ([id number]) [facility] ([facility]) [address] [place] [address] Bilirubin (U) [Mass/Vol] Negative Normal NEGATIVE [facility] Comment on above: Performed By: #### 5 8077-9 #### JIMENA Mark ([id number]) [facility] ([facility]) [address] [place] [address] Color (U) Yellow Normal Straw, Yellow [facility] Comment on above: Performed By: #### 5 8077-9 #### JIMENA Mark ([id number]) [facility] ([facility]) [address] [place] [address] Epithelial cells.squamous Auto (Urine sed) [#/Area] 1-9 (SPARSE) Normal Reference range not established. [facility] Comment on above: Performed By: #### 5 8077-9 #### JIMENA Mark ([id number]) [facility] ([facility]) [address] [place] [address] Glucose Auto test strip (U) [Mass/Vol] Negative Normal NEGATIVE [facility] Comment on above: Performed By: #### 5 8077-9 #### JIMENA Mark ([id number]) [facility] ([facility]) [address] [place] [address] 52381 Ketones (U) [Mass/Vol] 80 (2+) Abnormal [facility] above: Performed By: #### 5 8077-9 #### JIMENA Mark ([id number]) [facility] ([facility]) [address] [place] [address] 42732 Leukocyte esterase Auto test strip Ql (U) Negative Normal NEGATIVE [facility] Comment on above: Performed By: #### 5 8077-9 #### JIMENA Mark ([id number]) [facility] ([facility]) [address] [place] [address] 68842 Mucus Auto (Urine sed) [#/Area] 4+ /LPF Normal Reference range not established. [facility] Comment on above: Performed By: #### 5 8077-9 #### JIMENA Mark ([id number]) [facility] ([facility]) [address] [place] [address] 19731 Nitrite Auto test strip Ql (U) Negative Normal NEGATIVE [facility] Comment on above: Performed By: #### 5 8077-9 #### JIMENA Mark ([id number]) [facility] ([facility]) [address] [place] [address] 48090 pH (U) 9.0 [pH] Normal 5.0, 5.5, 6.0, 6.5, 7.0, 7.5, 8.0 [facility] Comment on above: Performed By: #### 5 8077-9 #### JIMENA Mark ([id number]) [facility] ([facility]) [address] [place] [address] 45663 Protein (U) [Mass/Vol] >=500 (3+) Normal NEGATIVE [facility] Comment on above: Performed By: #### 5 8077-9 #### JIMENA Mark ([id number]) [facility] ([facility]) [address] [place] [address] [id number] RBC (U) [#/Vol] Negative Normal NEGATIVE [facility] Comment on above: Performed By: #### 5 8077-9 #### JIMENA Mark ([id number]) [facility] ([facility]) [address] [place] [address] [id number] RBC Auto (Urine sed) [#/Area] 1-2 Normal NONE, 1-2, 3-5 [facility] Comment on above: Performed By: #### 5 8077-9 #### JIMENA Mark ([id number]) [facility] ([facility]) [address] [place] [address] Specific gravity (U) [Rel density] 1.025 Normal 1.005-1.035 [facility] Comment on above: Performed By: #### 5 8077-9 #### JIMENA Mark ([id number]) [facility] ([facility]) [address] [place] [address] Urobilinogen (U) [Mass/Vol] mg/dL Normal <2.0 [facility] Comment on above: Performed By: #### 5 8077-9 #### JIMENA Mark ([id number]) [facility] ([facility]) [address] [place] [address] WBC Auto (Urine sed) [#/Area] 1-5 Normal 1-5, NONE [facility] Comment on above: Performed By: #### 5 8077-9 #### JIMENA Mark ([id number]) [facility] ([facility]) [address] [place] [address] Yeast.budding Computer assisted (U) [#/Area] PRESENT Abnormal NONE [facility] Comment on above: Performed By: #### 5 8077-9 #### JIMENA Mark ([id number]) [facility] ([facility]) [address] [place] [address] XR CHEST 1 VIEWon 07-20-2023 XR CHEST 1 VIEW Interpreted By: Salina Hall, STUDY: XR CHEST 1 VIEW; 07/20/2023 4:05 pm INDICATION: Signs/Symptoms:cp. COMPARISON: None. ACCESSION NUMBER(S): [id number] ORDERING CLINICIAN: ABIODUN OCHOA FINDINGS: Heart is normal in size. There is no consolidation or pleural fluid. The mediastinum and bones are unremarkable. There are bilateral nipple shadows. COMPARISON OF FINDING: IMPRESSION: No acute cardiopulmonary disease. MACRO: none Signed by: Salina Stanton 07/20/2023 4:17 PM Dictation workstation: [id number] [facility] XR Chest Single viewon 07-19 No acute cardiopulmo nary disease. MACRO: none Signed by: Salina Stanton 07/20/2023 4:17 PM Dictation workstation: [id number] Interpreted By: Salina Hall, STUDY: XR CHEST 1 VIEW; 07/20/2023 4:05 pm INDICATION: Signs/Symptoms:cp. COMPARISON: None. ACCESSION NUMBER(S): [id number] ORDERING CLINICIAN: ABIODUN OCHOA FINDINGS: Heart is normal in size. There is no consolidation or pleural fluid. The mediastinum and bones are unremarkable. There are bilateral nipple shadows. COMPARISON OF FINDING: [facility] MMODAL Salina Stanton MD - 07/20/2023 Interpreted By: Salina Stanton, STUDY: XR CHEST 1 VIEW; 07/20/2023 4:05 pm INDICATION: Signs/Symptoms:cp. COMPARISON: None. ACCESSION NUMBER(S): [id number] ORDERING CLINICIAN: ABIODUN OCHOA FINDINGS: Heart is normal in size. There is no consolidation or pleural fluid. The mediastinum and bones are unremarkable. There are bilateral nipple shadows. COMPARISON OF FINDING: IMPRESSION: No acute cardiopulmonary disease. MACRO: none Signed by: Salina Stanton 07/20/2023 4:17 PM Dictation workstation: [id number] [facility] Work Phone: Radiology Study observation (narrative) [facility] Work Phone: XR Chest Single viewOrdered By: Salina Stanton on 07-20-2023 [facility] Work Phone: Coding Summary.on 01-21-2021 Coding Summary. CD:[id number] Gh0b Ww+PGhlYWQ+GA7GLGNaH43rv FIccQ1RX3jPIA0VZNVEANGJF K6OLW3pdNN0UXthZ4QztlJm SxkjfPTnUI58VAg1HON3dCjj OErwjU3zqDBeK5q5TyPfII57 uW67QJlcCMOtYxM2JhHqhmph bWFy S8mbZuZegKDdXir+PHRhYmxl IHdpZHRoPScxMDAlJyBzdHls KL1xOp2tZESpCDWpjNebqBGo OiBj c9evHWJjRHoyRI7fwBlsK4Ig vFN7SMEpv4w0Ud11eQI+PHRk XDJ9zKkbVWjwb944NvQds8hn IDM3 dQGdZDcbXYO6H22vr0D8SKKz TQAjFLK2kFV0xO8zcNnnzwow H2ViqDQgLqV2ITS2eTJsuQ6j bGln sxbksI8bLvf+S31SXW9RJFNF KI5FGlz3S0FsEpibqDV+PC90 DBBeQL40vPFtzLZjl8nkhRc4 JzEw FCEaDJR4kUdnXNhjs0KeMSQa T46jeXTqq1G9MCCpjQeduTUs NvCwbYS7zH2tISizraxts9kd dzsn Kmgkb3hxqn84wE33L26rKJem LNSxVTT8XEHkRBVloJxdql4k lW2gWm5+INpah9eom3grpSt4 IjIw HMDrdoQukWqgHYL8d1DsQk62 X9AvoJxdt4WgGop8zy84bLAg q9E9rHZ2NSqwGDEgkP8hCJgj ZnQ6 AKOuIfQfeB16rSMyNRstNp0d cWoumQrgPT2wQCIkjvecWUBh tZ8jEYYtcUGoiEapJG2fXTEs bjtm m832DcNfJHA9MDAwlZDpA9Xw bE7yRiGbCOTuXNCgL6OnyZWm WBugP382HZtzAqL4VROaatFr Y2Fs ULNrgIyhFhH7m8X3Fj9Dn1Cs lmekOFD1EMaeEOAxJjO3UdAo SqB3S0YpRcg2XSIapFvtXQ8i J3Bh DAPjnzxzcugazRA2BQWxJZDt fI94aLCpTIsvKa7am3R9j271 ZMYvNRCgmQ84Gn4geOmvZCYd dCBU oB4iqachy5pbitpxAjNlAEDl LDm3XBk0NTLmnFlkGcZrFWE4 PdC2PYZ1hOCqvX0jzZoigwok dG9w Oyc+T82dkZ3wSPF8LDB4xvmk JMCxyjZnQM14PF37J0ZcDtxm dGFibGU+MBSmiyXpdQmeOS9v YmFj c6abm5RgAGsjG8YsJRLqZZim Ejd6AYTyTKI5oZM9dV5fNYQm EImau5B8vDL2E9GhtrDhpu4t b2xs IVFbACrzC10pcIKta6H7SCIi nCG7EAKfiWyjQnWopX73Abx+ GNChdXvvr3LgMrtce2ked2tn dGg9 OzJcUFBmffIgrGcmQRW8f5Na Yy51Z34hESmxOBCtCUGeQPCk HAGfgWnaxg9bmH5yCk7+PGNv bCB3 yHX9hL2qWEVfSjM2APteL300 LePrjLNhYmayw3oyv3uveNn0 RjBiXSArekRjlHunIXL7f3Vh Lz48 L73rCUaaJNEeFDUfWFMdCHFc pNzqqb1cqO1nKt3+GD9it6ke rb73qZ09zYL+QJAaWZE8hSex PSdw HYLspW1oUYshQlH1HPBbFlZo cW52iZMtARvyXv4ebIclzYni WS2hCFBbsuiri213JpPjb5it IDEw jZOfJLkgVCL6X71kq6L8BLGg PSDdOTM1kSU6jA0gqOzyrawd bGVmdDsgdmVydGljYWwtYWxp Z246 IHRvcDsnPlBhdGllbnQgTmFt OUq7G2XkWql8EGAbpVdeCZ5a fIHaSMxlEi3bnTwefRokGZ7b NTBp idhno269ZhUfy9aoDSNfmCYw XJngEQK6P97kn5B1UGUsUNNu WML9uSC2iA3iiLcmqjouaEZq dDsg xsNffHehMNmhIZjoA789MMQe sGcoNuWzedOgTQCzdCI9HB58 XF05qSDsc8O9dTH4P6GeAIQu bmct xhdizGW0BTTlYJQqtH40Et8u nKekPj0pGDHdHXJ3KRQizTMb V6DhlI2pIrNdCBRrWJImW4Kh eHQt JWhnO881DEqjMpF2IZWkeiAh X4GsRPMfpIriRcS0u3G3Sy4M U8F6VK94TU66nNJuk7D1fIR4 J3Bh FSIqnzjgfoeozHA5MZTaORMj rT65Sl8vlVxgEj3hHKWlKWG2 SADgkAWtL3YddX5aZrZkIYFe MDAw L3WfjOWuVVyfG801OVfhGaX6 BRLyyvIuV2AqGYQuxHijEyZ8 z6F2Qb2BVMa5QA73AN11hMWl c3R5 gDB7X4RlGIEvxydpdeqqeBF7 RDDlERDwkQ60Bw2siYxfXr4q PXWnTPS1DVZyzIBzD3SllK6l OiAj MQOfAUUpR3GfcHIsSZsoK332 WAbeIiW2HWNaddKwT2KsYLRd pIvmTbW8s3O6Fw5KGBBpOX05 IFR5 fTF8HL40AT63Q8OkNlpkoTYp bGU+PHRhYmxlIHdpZHRoPScx WKIjLhYruKxwDU8nOu8kTLBt LWNv wLcyvCIrGvKrz9zsVSSyISgl EJ4ilWclP2JyrEX6TEHge3m2 Nw86N43yO5WshYH+PGNvbCB3 aWR0 uK0lIyLrBiO3QPvtH642FoRb tWBiAzdrh3vpa4yyrZf5FaU6 NIHuzyDvpUmoZUJ2j3TdSz85 Y29s IHdpZHRoPSIxNSUiIHZhbGln nh2zxZ7lUq6+VUCdxQP5pQQ5 pV0lJvQwNtG9QFbpI819LcHt cCIv Yywrt3pbv9lgtDw1WoIrPKGs nwTxbJquQEG8i8QqXx31Q9Fi rUwud8MlKgj6wz89rZTvf2A2 bGU9 T2EmRIQgvzczwEEjvUtfHP9r ZVZsuffeUGHdmD6nASUsN4a8 CdOoSeZ6WPyfO2YadqT6QEPt cHQg CSlpQIU0L73ij2B9JWKvEUOx MMA1pHU4fP6koRreazzwcTTt nQbfeeCfuEtwUCuqGBfzE919 IHRv eHdhTHSntH6fESHgbPAruCrs QF4wSAZgwwpxFvOKRMZKBSTh RBGHJEFDUMuJMd63V7EdDte6 ZCBz oDzxZC6xtULfQIzzHj2bpPbv dBtiTF0jXRQsbtkjKVYxbW1b HERddZVniEriGW9oCYUcxrpx b250 KaKlQNP2UZJxvSOhG8GgaR0t KxRxNYOkDBFgN9RxcAScMJco E128JKzpEyH7BPYxxkZoM3Ej LWFs sTbgPuB3v2W5Ro2dFw6zWd5u QDh6MQ07LY55xIUiv4Y5bHB4 P2SrNQNlacznmmfubJV1ZGLc MDUw xN31dNPjXAgzTm7lh6Q2v525 XFEhZLCmvV30Mo0rtXwaQDYz zLWVtP3yzfbjt0zeucoyJqSx MDAw KBe7ZSp9ZSTjwFuqMnObZGC1 HeO5CHD0aFVczE1wbXjidutc rV8vKay+FxYvCTRggrW4C2Kq Pjx0 GUHogGzcZG4vmSUxBJbwIo9w xCezoEqzOA5lLQLvfvdgWAYr jP3vHSGniQVfvXohNL8qXOLq bjtm x802WfFpUUY7DGNvjJIhC4Hi hN1wStEoGVRwXQFhX0HixHDg IOynD750ZKarStS1PMKrclXi Y2Fs PBJyiSnyFdS1d4E7Pt1JSO7p iMT1U3DqMuz3EOTibNlzYU1y qEUmJZmmYv3wqMhauNygCL7v NTBp cuoqLEKjqE2hKTMvfOIacHhl QB0fIVRnnjifn040XmMwCPB0 VIDvcYWtQ4UuaM4bQyCuSFLs MDAw X4XfvLXjZUcfD812ZBxoKyF5 JGSgddWgQ5IbHESfiKwuQpB4 i3C3Fh4NpDRnTWCsPG31LK68 ZD48 V3KyDbjioOJchPV+PHRhYmxl IHdpZHRoPScxMDAlJyBzdHls ZD6rPq1eEFIlWGGktJejpPAy OiBj l0djKAShBVqvLB8rcOzjL1Il yJJ1ADBxn1o4Jc00P83bG9Jv dXA+KQLhtWF3gTI5aG5bBwAs IiB2 LWecT979KyTriPYbBdpyt4vd b1qwwAj3EtLqYEBkdoElbNoy XTL2j0OrFo63G26oKDsxNYKa PSIy BRXbUBBulAlqlq6uhD6jJt1+ SIFdnMA0dDF0vS2pSbVjDaO0 PDyuE633KqEnpNPpYdggA84d Z3Jv dXA+VBVdUeh8KBWqcXneUR2z mOHmJPtkIi4gSVD8MuNrBwSj GEfaB0RsVOHumdhbsfawdGP7 IDAu MFEqtP90Yd4syPkyYp7oXUFr ETJ6PCAjxJSaO1CanB7nBnMr KZBcDOHzI7GgwTBcWVstY561 IGxl PwK5WFEtetMwP0NcPFKvkPoy YnB9e5T9Tm9NrZyooHFcAC9l NaAuWQp5W8KvZqt9SUFdmZvy ZT0n uMBaPXnlJt8paPssaEebXQ0q BPJcvwrjp573DsGed4dvTBFj oRNiYJzaXPX8B81qe9K4HUBh MDAw CKX7xAX2sG9eeCohmbuxvIZf yQusjnEgeDpqGUpoQHulP103 ORYkbWehOtPGFxc1M4KpVzi3 ZCBz eQhiAA4dsEXoMQvgJf5iqXfg fUkdFZ6cBYPztczzx489XzPn p1eyBMOacZKqJSarSUE0K36x b3I6 HOXhMWUoREV1cWD5tR6viXbk bjogbGVmdDsgdmVydGljYWwt NQidB381CAHlrUrfVp8DFsh5 L3Rk Kzw1LEOwvMyxWN8scGLaANzo As6wwPotaMraYL8nZAZtvcpx g485NsEoh5poAIRqoQHvYVca ZXM7 I59pm1B6BEHmUVYoXJF2uUK8 zL1ooGizlsbppEYbiOttouNp cZhwWMwuRElcV995UYGpkFkx PlBh eWVyOjwvdGQ+SH42jz98C0Ov WhnfLof6TOSkVLP3fWL5dE8l QJXaXTjka4T8hXT4N1AwniOm ci1j b2xs (more content not included)... Normal [facility] Coding Summary. CD:[id number]:[id number] Gh0b Ww+PGhlYWQ+MF8ZWIWtY48vb AXteU1XV1dDPC9OBVPUDGVKJ U9ZJC0wtZC7WAhbS7XyaqJz JwhkrHJkPM42ZGi2AHU3nIup KNzduA4qsRLxX8n3NzGyWF80 qT24NPvrBFOmBqH9CoCbidnk bWFy K4fnAoOvjYBdRti+PHRhYmxl IHdpZHRoPScxMDAlJyBzdHls ZZ3wMl3sYPXoYMJpoVwqdMJv OiBj z4ptCKTgTLmfZE5emQfcS7Bd yEX3WYKox3h7Ji83bXD+PHRk HCR5hQcwPWuyy548KwNud8tx IDM3 eQOwAOpyDYA0B18pi2E1RAUr PTHsKOB3nOR1nW2uvLfgcckd L3OmqIRkPpM3MGJ6yUBaoY8k bGln cssysK5zPot+W79LUS7IKDNL FA2GVxq8T9DkJgrysVQ+PC90 ZMFlNL19kSLhhBUvo3eyzOd8 JzEw JRIxWGF1pAeyXAosp6KbQUAv M23jsDQgc9E3GLQwbYplcKKt GsItlRX2xB6uRLnxgdibv2nj dzsn Dleuc3wlzi22lA06F82yZGiw UPYpNCP3HYVmQSCdqAvupr8k pM8mUx3+MFkyo3lqn0wavBo4 IjIw PEQgwmBzzLgoSEF1l4PpHj48 N4EsaPyol4YuTxd6mr07bSNq a5B8dMW9UKciMWExcY4rXXfz ZnQ6 HKSoHzDfzT56aHQwQBnnQk3s yBlqxTfvMX0fCINnkgaqNEKq eM5hUNQkaBAuoEbgEM8vMSTl bjtm j514HvZkZUA0ACYmuCGdO1Po eM0dEkJtLGMzWOGjQ4OswUQr MKcvO374CJbuXuX4ZQSfngJm Y2Fs VAGuqSonZkY4p9C0Hx0Op3Iv vrdfETA6MFgeYKSyLwH8CaPx UeN7U4SrTvr0PIPydQxqUO9p J3Bh JRJobcmibwyegBQ8JEYqGQXa aE49xVGyLQurWv4hy0V6t236 KADqWEYhzY63Tf9qkWewAQVx dCBU nH0thapll6ofooglXtOzMOBv CUg8YBw5QMEthGkaDjTqZKA8 YjF9EQT2oIVxeQ3wcGdheyzr dG9w Oyc+Q13coK3tOTN2FXL7lhzf GFTabkWeCL99UF94H9IrAnkl dGFibGU+BEWglaJetAnhWZ3n YmFj x8wjc2UkRJuzD8IiOSXwIQqy Igc9CAQrQJZ9aPD4tU2aMTBq IZieu0D0tPG6Z0VwfkAybw6j b2xs GHZzGIvmN41mpXHtx3J0DPDw qWM7YZBfgYioNaAqhN84Zrp+ ZWIuuOzag3SpHfrnr7hcn7cy dGg9 NcGyYWYsaaRzlDshZHF7w9Kx Tk18V39dZKxxXAPeRGNlAYCj RRHdxTgpke2roW2kKn8+PGNv bCB3 bBU2mT7rABJeSyL8UHmuI682 JcAulSGxJlrzq9zqc4dxkUu6 OtJoCRApodNqaKnhGOW6u9Fy Lz48 L10aKEuyNHRrZBZqFNFwXPIe gNmrer9onR6iTo3+FN3hp5ns kn35oL12sPP+CYTvQRM8tIjg PSdw IHAnoT5lCGisYvE6XPUtGcAw rE46mJJxBGmuLm1zvKxxrIaa AK5uHMEqrouye800UlDkm8pt IDEw lOKzKTpeNIJ1Z39ai4T6YHFp ESCzFVL8iGU2dE2rxPgbgwjo bGVmdDsgdmVydGljYWwtYWxp Z246 IHRvcDsnPlBhdGllbnQgTmFt XHf3E8GnBty2EMUdnIlnRW6m lYXwTPegDl9ciTkrxZvdUP3t NTBp zvlvf936PjXgn8oeYYWorFNk SFpoRXU3S95zc9K8PEUoLUFy OZG5dSL1bG8isGywutzuvWNr dDsg tcSotBeaTOsoMAylE879IVAw jSpuJuIdjqUjODHcdSM4DW24 UT13iBTru9D9wRJ1G9AaJACl bmct tvngtJA5TXGhBAOnvY73Pc3y pVvrRw2tZGMaLNS0TQXtgZMm C7GzzC6iOwFbLTUjZHYrA1Wa eHQt CLptR274AAxsAoK4KMSiyiQt J9PqKONmuXdnDbT8l4N5Ud3B K6V7LR12XG51yVZzp3N1qPZ0 J3Bh WWSsykiclkqzeMH3ZKTfLGBf lS41Km3xdRbdAm0dHKKxIHM6 SJWamIDnF5YsuT6rPfUmPIKf MDAw V3NpdMSrFOgjU396UUnaVhK2 HBFxgwKxF0FdCAHzhKsnQdL9 t9A5Uo8MTHr2ZI50SH99sKKp c3R5 xPV0M6RvKBAuebfhrijcoZN7 DOEfVEQukT50Bc9cjXtaFn9k TQXaXTX2ZRAagBNiW7UduC3q OiAj QOGqFFBuG2WswECyJZsvE645 XKbtGcK4UJJkjsSzN6HeKAGr jByxZlF0o5K5Mf1IIVNmNU58 IFR5 uLH0ZC54LB01C5BbBzdjpPPk bGU+PHRhYmxlIHdpZHRoPScx DSRxNuHsgYbmQI1vWx8iLBHv LWNv bObrzHAnKqCka1alQNZnDJsb AP2qgMgrN0OqpZS6YPDnl5b9 Oh74H81wY2YybDB+PGNvbCB3 aWR0 lC2sVrYqQhO4TYxjR946AzLa nOOdWmkaq2dlj0jdsNo8PtK0 IYVvywZmvVjpZOM7j8XhDp69 Y29s IHdpZHRoPSIxNSUiIHZhbGln bj4noL3mWm0+ZVNrkYD2uKZ4 uB8jSpNpYsU0ARubP707AuDv cCIv Oivtw3qeb1jcqNo5GbMwIQUx asHwyYuoLER6x4KyMx38H6Gb vJrdn9AcCuy6zb58qPRjn6L4 bGU9 C5IkRESxzzwicSOfzOsxYC7r MFDbssugZDNaiZ6xVWJoL4r5 QwRzQsZ9QRwvN0KlbgI7DCCj cHQg BBrhZJG6W90bm0V2KKWxWEBu TMK0eCE8dL1wpZhslanbdPUa hEuehvTiaDpoZPbmQIwyL967 IHRv qBfxMGGkbJ4rFKAqrSEmcVds IE6gYWAdwaeyIxXDYSVRUVCr JHTDCTLWVRdVPg33S5AyStf8 ZCBz vWmoBM1heDTqYSkpWx1mdNrv qObjBZ4dOTRfeshqVJUhmN7t HJEqsYUgvBvuTR1cSWAxevhw b250 BdTmSAX8IMNxoOTxT7FvgZ4y MzHjRNFdWRMhD3EljOOjYMuz K600ZIxsKzU6RIDrogOoC7Ey LWFs nWfhFtH3d7T9St3kRm3vPd9z LGs7KS06FC11cXXhr0O7zAT5 M7PhXBKltzolvqlobGC9HOKm MDUw pQ89yFBuNGvgJs8jx3G3z943 BRGbDDAigR80Lw0tqUvkTUJg hZXNrY2ggnbth9lkxnesZxNo MDAw CPb3USh0HMAtuNzzEcXsXBR1 GiO2UNG7vQNftM1wlRfstwyt tQ1bXrb+OfKnEBMtqpS8W0Fm Pjx0 RJWfdPbpDI1pnSZjSAeaWv1g mPswbZzrLP7iQOOmjsepHCUh tM0iHKQqgRNyhEkiRH0iBPCs bjtm h208LwKmDFB3HRAczTXhJ3Tj rK5iRuBfSHJlXNQwA0PgbLQh TWuaD027WCpbYlM1USEqqyFr Y2Fs XOPjsCcbMwT2r8L2Lm4WFR3s eZX1W8ZlCok1SGHeiPbwDD4o hPQnUXhbAb3lqKwayDciPT5j NTBp tnswFNTbmA9xFBQrdCQenLip MM8rJLClyfwuv348NpLyGNB8 CHCadXPsU3BnkH8qYhCqHUSy MDAw K1RvhUKrLFcwH855CCccUrK4 MBNayaBlX6LlQAWzpHzxGqA2 t3H8Nm8NsJWcPWZyPB28GE51 ZD48 X2EdYdhalTRwpCE+PHRhYmxl IHdpZHRoPScxMDAlJyBzdHls GX2nBb6xIARkTYOwpZtysXPg OiBj n4phWIMaHMkyGQ8ezApfL1Bo lVE2YVPap3c1Xe62H80fQ2Ei dXA+TEOwvSF3kJO1vQ8sVtJa IiB2 QXqhZ219PlHibTDlPtcgu0ge b0uktPb2UnCfANPxkdHuiKvk AUR1s7CdOl99H76eVMtlNNRy PSIy JJDtZPFrpKeccq3jdN8vTt3+ QKDnzLQ1xOD5dE4nXsJaYtY0 HAvlZ737AqZigANnVxnnD16s Z3Jv dXA+FTAgWqz1ZRAlkStwWA3w wZTmAXurSu1eKYZ9RbCfIzCi AUmoC6VmVCSwmhrjrzlxnPT3 IDAu BMBvqU66Ba2ifVbwPo4gDGQc EUD7YSBarUKbU9SmjR1aQqMh BECdOVIwR7JksDKcKZjqX539 IGxl QnW1TPKkxzShB6WdTSBwlRbe KwT7s9P5Qz4ThDdmuZKtAW9c MuEnJUa7L4AqJou9ZOXslYbe ZT0n tASqZXnsQq6osUtfrSanXQ7m SWPmnypah507NpBcb3jtWWTk cCZnLBmyFGZ9H48pm2P5NVMg MDAw RML3zCD6wE8jvRhqtrbgiRQp dUrtkyLaiThfBApyYRrvI873 HVDboRrrPbBOLpd3F9NyWwb8 ZCBz bAvdRT9ooOKxVWuwOw5hwPwy pZyuTD8sGZZuyellf468JpZr y9xsAEDxrYFxUWjrRGZ7P59d b3I6 FBPvFPLaENP5oLA4tH4hoDqp bjogbGVmdDsgdmVydGljYWwt WZjcQ118MCIplPvqEe5VSmu5 L3Rk Key8ILUhxKvjVK6xnMKlSOyq Bh5uoWeolBpdTI5mQOSwutce g891BmUaz2xlEZNvbTRpXMqv ZXM7 L38ep9T4NIVyLHZmUDO8tOP7 eQ3dtJgjxnwqxNYdrGjoqrEb mZocERiiAMujX843QOWblIjr [facility] eWVyOjwvdGQ+LX69uk43S4Ug AhrcEuw9LGReXIW0rUC6lY4i XDQrXLelp4L0wHO5P7AbwzXr ci1j b2xs (more content not included)... Normal [facility] XR HYSTEROSALPINGOGRAMon XR HYSTEROSALPINGOGRAM * * [...] nondilated tubes. No spillage. IMPRESSION: Please see ROADWAY DESIGNER report for assessment of real-time findings. Carpet Cleaner: ANTONIETA Transcribe Date/Time: Jan 20 2021 1:37P Dictated by : DAYANNA LEROY MD This examination was interpreted and the report reviewed and electronically signed by: DAYANNA LEROY MD on Jan 20 2021 1:45PM EST [id number] [facility] Rubella IgGon 01-05-2021 Rubella virus IgG Qn (S) 20.80 [IU]/mL Invalid Interpretation Code Immune >0.99 [facility] Comment on above: Result Comment: Non- immune <0.90 Equivocal 0.90 - 0.99 Immune >0.99 Performed at: [facility] [id number] PhD Randa Ochoa Performed By: #### 5 [id number] #### [facility] [address] [place] [address] Varic IgGon 01-05-2021 VZV IgG IA Qn (S) 207 Invalid Interpretation Code Immune >165 [facility] Comment on above: Result Comment: Nega tive <135 Equivocal 135 - 165 Positive >165 A positive result generally indicates exposure to the pathogen or administration of specific immunoglobulins, but it is not indication of active infection or stage of disease. Performed at: [facility] [id number] PhD Randa Ochoa Performed By: #### 5 [id number] #### [facility] [address] [place] [address] Consent for Treatmenton Consent for Treatment [id number]#1.00CD: 127 Normal [facility] Consent for Treatment [id number]#1.00CD: 127 Normal [facility] Free T4on 01-03-2021 Free T4 [Mass/Vol] 0.75 ng/dL Normal 0.58-1.64 [facility] Comment on above: Performed By: #### 2 [id number] #### [facility] [address] [place] [address] VnqQ7aws 01-03-2021 HbA1c (Bld) [Mass fraction] 5.4 % Normal <=5.9 [facility] Comment on above: Performed By: #### 5 [id number] #### [facility] [address] [place] [address] Physician Orderon 01-03-2021 Physician Order [id number]#1.00CD :127 Normal [facility] Physician Order [id number]#1.00CD :127 Normal [facility] Prolactinon 01-03-2021 Prolactin [Mass/Vol] 45.14 ng/mL High 3.34-26.72 [facility] Comment on above: Performed By: #### 5 [id number] #### [facility] [address] [place] [address] TSHon 01-03-2021 TSH Qn 2.09 m[IU]/L Normal 0.34-5.60 [facility] Comment on above: Performed By: #### 2 [id number] #### [facility] [address] [place] [address] Vitamin D 25 Hydroxyon 01-03 25-hydroxyvitamin D3 [Mass/Vol] 58.1 ng/mL Normal 30.0-100.0 [facility] Comment on above: Result Comment: Vit sarabia D deficiency has been defined as a level of serum 25-OH vitamin D less than 20 ng/mL (1,2) by the [place] [employer] and an Endocrine Society practice guideline. The Endocrine Society further defined vitamin D insufficiency as a level between 21 and 29 ng/mL (2). 1. IOM ([place] [employer]). 2010. Dietary reference intakes for calcium and D. [place]: The National Academies Press. 2. Carola MF, Pita [place], Donna HERNANDES, et al. Evaluation, treatment, and prevention of vitamin D deficiency: an Endocrine Society clinical practice guideline. JCEM. 2010; 96 (7):1911-30. Performed By: #### 5 [id number], [id number] #### [facility] [address] [place] [address] Coding Summary.on 11-21-2020 Coding Summary. CD:[id number] Gh0b Ww+PGhlYWQ+RD7VPPMkS15ja DHvrM4GI0mWPS5VMPLDWREKM V7ULK4bgBD0QIhnJ1QmzvLb RamhsGZhWQ46JDt2VEF1lSoj QPffoJ9wyXLdJ7r7GmKjOX75 xG73HMwdRRUiVhV1XiAwbquy bWFy Q8fkDkQztARpVku+PHRhYmxl IHdpZHRoPScxMDAlJyBzdHls RM3gAo6mISMnRTZreVvmdQQk OiBj v6siDPUrBZneOM0ffNelR3Ia dCR3ONGfp0q1Bs33yTF+PHRk SMY8fWtpIFrkp568YoVzi5xt IDM3 sCNfBElqLJJ3U69gl6I3MCPf UVJvAUB0sPG4dY0lvHqqiotg X1OpgYYmKcH5WWY1wCFhxV0n bGln fogewH3kVia+K62WVX3FZJIB AG2VLjb8R8EcFinjsGR+PC90 AUDhUX97aOAyoIBkv9mnsFq5 JzEw GALmMNX2qZfeHXgbg5SqJUFp L71jtCDjf8L2YAQdlXeqfESc FqChvDO5yA3oFBcyarglk0lp dzsn Utsnu2hwre12vZ82I14fKSpv KEWsDCU0LVPdAEDweZbhpo2r vP7uSd0+LIgxo2cxf2andWe9 IjIw UPKngyQwiHpcDIT5t4VtQq63 Q0HcoJvbv2NjDiy2hy86yYKq i0Q9sYI5SFamWBDpfL8bNVth ZnQ6 UUZaZhEwnE14mOGsTRvoSt2o oNpebEmlAP3tLNRjqfyhUYDd kB8vFEJdhEGmyJdrCT0mJXVe bjtm k886QpMnANJ3MSQiuXBcL0Or jN4cMrOaHCUiSLVkJ9UiaNPi VMfeR851VQhuFmA8YAGddxEq Y2Fs BZMtmDrwEvA1n5F4Ok1Hw9Mr ffzrUIE7YDmkLEL4HdJ1PjVd ZuN8R9BnWfq3HHTieThzJJ3z J3Bh JLKbtelwnlymqSL5NMCbIEAa xZ99cYSlCUmzVc0de2U2v645 WZKmZUNddR49Zn7mnFztJNMo dCBU hH7lzjnts0zmxgynIxWhAFHt OSn6MPs6HDKlyRtlCxOnOUP8 NtA1MJG9wSUrnF9ppBwqxrrv dG9w Oyc+J86ncV7oLKL4NRH7jkjw KYNyfcUcEX42XZ25U6KjErcd dGFibGU+LKBykpWntWskZL6m YmFj f9lou1ZpBNqoW1WjSYYjPXlf Sge3FELlMSN3qUQ1xQ3qTOYs MJnwl9N9xSK7A2IgvgPalb5g b2xs RBWcECzhP68wtGBvt9C1LDFn aBT5ZVCmxJbbHnVneG50Aov+ WTDpuSnyt3PvVcpsq6owm9pw dGg9 EiLsEVWzprVxiVxqCBA3m7Qt Kk56R38cXLzlWIMvLSYeQHJt IMNzfMiprp4hjJ5cSy2+PGNv bCB3 pZG8tL9vMJZcJiU1QRrmP872 DnZyyPViCeuek8yrt8mujTq8 MjHyZUGcovPywSlfREZ3x4Pa Lz48 K09iTHfuYHIsFUMyKAXiMMIi pOagdu5tfI2iJh2+VT6uu8uw cm74hA00mAH+SIVmLYA6lXha PSdw PMKqqG6vOCmdAaB4FUKuBnHa sJ47uIZiRGwqXq7jnEldaPeq FT7iBIBceovoq309OkFhy2pz IDEw nBTiNRvqYAO2N84li7I4OGCj NZIdDEY5dKN0cF3tbQbysgqc bGVmdDsgdmVydGljYWwtYWxp Z246 IHRvcDsnPlBhdGllbnQgTmFt PXd1O8BkMch7MQFfnWgcTC6u sWPbNIfqHw4udRjqvZjqTS2s NTBp jrxuk743DcBxf1ugEVGrzBBd KNxaEYP1P88so2N9CORhRBHv UCT9zUI0dR0yeZfndggyjPCs dDsg qkMnfYkdTPioZUliD106JDZi pStmKyHdilWqKJYhtKQ0NU45 OT43mVIfh1V3uLL7Y6KaRUOc bmct muxypZR4BQAtFBHukU10Ff9c lTezIp0nCCXfBDL2WUAyyOSu M5AodU5lSiOyIMXxBLRbH8Vv eHQt SQknQ065EPhlDoD6GMKoldUw F4UeSSKbnKcgKhG1w5G3Xp9S M0L5VL00IE18oFZut6G4mAB3 J3Bh SDIjoqzsuuznfHK7LDMeQVNt vJ32Rf6hxFdqTa5vEZOlLVJ6 KAXctCAbJ4CdbM7iSuTiOGAj MDAw I7AlhSRoUHdxO734CCuaSbE4 KJPixoAmU5MkMNAzkErmZnZ0 h4K4Jz3SOUm6UB16BO04iPZx c3R5 aJJ9S5YxGUDvakueyqgxbYS2 TBKbQAHtaU38Vz3axTpeRt4f HQNmNXE6VDEqsRLuV3RduS3g OiAj OQRzXJYlW1TkeNXhJTfvR936 LSbbMfT7ZLQrseAxX2OeUHCz wKleBvP1t5K0Dk0YAILbBS88 IFR5 lWR1UZ91DY89S2BjWjpqeZPf bGU+PHRhYmxlIHdpZHRoPScx MOSyHcMwnKuxGU0lPa2dAJWo LWNv oKkshWFwGrMvs4ggOCXhNYbq EK7zgErzL1CocLM9URXmf4q5 Qg01B59vM4MohBO+PGNvbCB3 aWR0 oR8lAtIlDgJ9PRadC031KrZp eUOwUmgbx9rez1ealYd3NdX3 HOHzboSfwFhcLMU2o8ZfGv12 Y29s IHdpZHRoPSIxNSUiIHZhbGln je6znZ4sJq4+KKSvbZG7mPA3 hI2lGpDaHvK8VFacU222RtWg cCIv Guuld3nvd4cnqGy2SvTxBKXf cpZecSugVGW1e4MlYy97Q8Ss oDqqo0WdVfz3db50lSGgn8E9 bGU9 Z9NrASBiejpdrGRbqVykZE5n UFAjdvxtXRAziQ0nEKWjR3y4 NeVnAsV2HDkwK1JckdJ3VEMi cHQg CEdxPRG1S78wr4C2AKGmZERm DXG1mSC0nQ2rePbwzwnagMSh yNupqcMrfGylTJavKQteI154 IHRv tYkaCZQmpM1eWMEwuPWkxPso PO5qKXFnrfbhQzXYBGNARBUm VWPBJLUFFPuYQo21N3MnTdo8 ZCBz qOqpZF3beCXsWYhlCg2bcBkq yNpvJI0fGPIctfegRUKgeE4z AWAfeNRkpEdpMC2wXYObibjm b250 ZzXyAZW8CBCtcHTwV0OdtS5w XwWfIKZwZUFoO7KtoUVoJDgd E048GAtjNkE8UGIlmbWyK6Jo LWFs zRfaIaX1p6K0Va5pAr3tAs8n TGh6IT10IZ15xIJiz9X0bUS1 P6BzWMSdzmjiruzqzVD6LNJu MDUw pX77tAHaUDkgIk9in7C3t177 DYCjOGWsvT89Gj5epEzpUNDz pADNiY0cpcofo6nvjjhaUrXo MDAw WTj8JOi9XPFabGmyCwSzMKY9 CtA7QOK4yIMvzR5vjFgzqidp eC1yRro+PtZhPGEcvlY1N8Zz Pjx0 VLSdyWueWO9jiQJjRAnlYe7y kFubqGyeTO9eBAFvmnvfWDUs bP2vMGVfoAKxhEauGN6xHDTq bjtm y279OoMhYYA7JOEjzGZmI3Lx xA2bGaRyQDIuHAHfQ8AddXKd ZTctW567LUrpRxV3UXJhrcFf Y2Fs QYNjhRvvKhE6l2Y4Py3QHG0r xDF6P8XqUzf3HSUyoJhkSH3r pBWvWYuqLq3osHyvbEwjYP1k NTBp tzbsIYYkiH0gMNQpaBVucSdj KI8rITXzlbjxt352PeZvFPN5 QIHalUThW3OziL2gKoUkVOOc MDAw A3UmsGWmOIogN995TGadStH2 QWLskwRlD0ExICPcdKtwLeB2 p7M9Kc7PEEVaZVEuwRPiMeE6 L3Rk PjwvdHI+XT42OCKzJZ91tEKa cZBln9qogLq9SkXfDOMhHYO6 nMbmIIhha4XhHQGsJ03cwXPn c2U6 VWAziUfatLVhScAcqIO3rG6a QIjnhwnrz8hwinmdWrseo6st bc02pM81R26iJCxkRPNfZPOp MCUi VIWavVilpk6olY4yAy6+PGNv fUR7iHG5xQ5vMzNjOyL4EAmj G826MvWhyQZiEuvve8ofi7ed dGg9 QbXfZGVrcbHahDgzHTZ1w9Yp Ez94P87wSXwqXQKeGPLvRALc BLGpaXoiyx2prU7tMi0+PC9j b2xn px17iZ60yDU+TBWqOEI3iYnq JAkjLIEbiV4aTGqnAaT9QHGi UmAosS45bUUrTWosXc9ddPtd dDog ZA8yOBDthzuos412QnLbj6sg LMAmmHCyOGjwTTH1A83uu9P2 VULrCPCbOWM9uZY5vX7aqOpx bjog bGVmdDsgdmVydGljYWwtYWxp P217PHXwqJsjCqPwnXHkT6tz agFKYH9dPyzcaQL+PHRkIHN0 eWxl LSmeSMNkeN4tGJTeM3i2KgBx JcD7EIrkT1BvmkS5LRCcaAHd YLPdvGETmL4kjrdoa5cokwnd IzAw BHVzJZx7EZr4JUPwrBifQaFq NXU5CxQ6KUJ6pEEelV7puClk rnpedK6dHuj+RklOOjwvdGQ+ PHRk PGD0hPhtWBxgVNEpuN1oGGTt A4i6KxTnOyH5BXucI6KxutW1 OYCigSJuIPFrsOGGzZ3jzdye b2xv qsqgYmPyXEDcRVd8QCn5RXMp lBaqUmVxVJF4WpX3LYT5eGVb wK5fnWltvxjpeT9gQvc+TVJO Ojwv dGQ+BHCyUAC1yOcnEJhzPRPt qK8uQFAbB4y7EdYyOvY6GZer U6JdpdZ2FLQvrMTiVUKhfLDE aW1l lfnbu4xuexbiStGdRMUzXYg4 ARr2GMDliKmhCsCyITJ7HlT8 OCF9aMGhoY7bxFfirqtlmT1a Oyc+ WAX4YJQ4NP90YL59S8EmWnov dGFibGU+PHRhYmxlIHdpZHRo HBxzHGUhFdFuyTgmDJ6eFb3o ZGVy LWNv (more content not included)... Normal [facility] COVID-19 ([facility] [place] 11-05-2020 SARS-CoV-2 (COVID-19) RNA REEMA+probe Ql (Unsp spec) Not detected Normal Not Detected [facility] Comment on above: Result Comment: This test result should be correlated with clinical presentations and medical history by a healthcare provider to determine its clinical significance. This assay was performed by a reverse transcriptase real-time polymerase chain reaction (rt PCR) method on the [employer] system. This test has been authorized only [...] or revoked sooner. Performed By: #### 2 [id number] #### [facility] [address] [place] [address] SARS-CoV-2 (COVID-19) RNA REEMA+probe Ql (Unsp spec) Pass Normal Pass [facility] Comment on above: Performed By: #### 2 [id number] #### [facility] [address] [place] [address] Specimen source Nom (Unsp spec) Nasal Normal [facility] Comment on above: Performed By: #### 2 [id number] #### [facility] [address] [place] [address] Consent for Treatmenton Consent for Treatment [id number]: 127 Normal [facility] COVID-19 ([facility])on 11-02-2020 Employed in 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 NO Normal [facility] Comment on above: Performed By: #### 2 [id number] #### [facility] [address] [place] [address] ICU NO Normal [facility] Comment on above: Performed By: #### 2 [id number] #### [facility] [address] [place] [address] ? Unknown Normal [facility] Comment on above: Performed By: #### 2 [id number] #### [facility] [address] [place] [address] Resides in a Congregate Care Setting Unknown Normal [facility] Comment on above: Performed By: #### 2 [id number] #### [facility] [address] [place] [address] Symptomatic as defined by CDC YES Normal [facility] Comment on above: Performed By: #### 2 [id number] #### [facility] [address] [place] [address] Physician Orderon 08-27-2020 Physician Order [id number]: 127 Normal [facility] URon 03-22-2020 , QUAL Negative Normal NEGATIVE [facility] Comment on above: Performed By: #### P REGU #### [facility] [address] [address] Juany Mccarthy Covid-19 PCR (CVDTBH)on 02-02 Covid-19 PCR DETECTED Abnormal NOT DETECTED [facility] Comment on above: Result Comment: This test is not yet approved or cleared by the [place] FDA. When there are no FDA-approved or cleared tests available, and other criteria are met, FDA can make tests available under an emergency access mechanism called an Emergency Use Authorization (EUA). The EUA for this test is supported by the [place] of Health and Human Service's (HHS's) declaration [...] used). Performed By: #### C VDTBH #### [facility] [address] [place], [place] [id number] Juany Mccarthy EUA Statement SEE BELOW Normal [facility] Comment on above: Result Comment: This test is not yet approved or cleared by the [place] FDA. When there are no FDA-approved or cleared tests available, and other criteria are met, FDA can make tests available under an emergency access mechanism called an Emergency Use Authorization (EUA). The EUA for this test is supported by the [employer] Specialist of Health and Human Service?s (HHS?s) declaration [...] SARS-CoV-2. Performed By: #### C VDTBH #### [facility] [address] [place] [id number] Juany Mccarthy Vital Signs Date Time Vital Sign Value Performing Clinician Facility 10-15-2023 10:05-0400 Blood Pressure Location Alex Knutson [facility] 10-15-2023 10:05-0400 Diastolic blood pressure 74 mm[Hg] Alex Knutson [facility] 10-15-2023 10:05-0400 Heart rate 66 /min Alex Knutson [facility] 10-15-2023 10:05-0400 Mean blood pressure 87 mm[Hg] Mohamad Mouchli [facility] 10-15-2023 10:05-0400 Respiratory rate 19 /min Mohamad Mouchli [facility] 10-15-2023 10:05-0400 SaO2% (BldA) [Mass fraction] 97 % Mohamad Mouchli [facility] 10-15-2023 10:05-0400 Systolic blood pressure 112 mm[Hg] Mohamad Mouchli [facility] 10-15-2023 09:55-0400 Blood Pressure Location Mohamad Mouchli [facility] 10-15-2023 09:55-0400 Diastolic blood pressure 57 mm[Hg] Mohamad Mouchli [facility] 10-15-2023 09:55-0400 Heart rate 57 /min Mohamad Mouchli [facility] 10-15-2023 09:55-0400 Mean blood pressure 71 mm[Hg] Mohamad Mouchli [facility] 10-15-2023 09:55-0400 Respiratory rate 19 /min Mohamad Mouchli [facility] 10-15-2023 09:55-0400 SaO2% (BldA) [Mass fraction] 100 % Mohamad Mouchli [facility] 10-15-2023 09:55-0400 Systolic blood pressure 100 mm[Hg] Mohamad Mouchli [facility] 10-15-2023 09:50-0400 Blood Pressure Location Mohamad Mouchli [facility] 10-15-2023 09:50-0400 Diastolic blood pressure 73 mm[Hg] Mohamad Mouchli [facility] 10-15-2023 09:50-0400 Heart rate 90 /min Mohamad Mouchli [facility] 10-15-2023 09:50-0400 Mean blood pressure 89 mm[Hg] Mohamad Mouchli [facility] 10-15-2023 09:50-0400 Respiratory rate 13 /min Mohamad Mouchli [facility] 10-15-2023 09:50-0400 SaO2% (BldA) [Mass fraction] 100 % Mohamad Mouchli [facility] 10-15-2023 09:50-0400 Systolic blood pressure 122 mm[Hg] Mohamad Mouchli [facility] 10-15-2023 09:41-0400 Body temperature 98.06 [degF] Mohamad Mouchli [facility] 10-15-2023 09:30-0400 Respiratory rate 10 /min Mohamad Mouchli [facility] 10-15-2023 09:25-0400 Respiratory rate 10 /min Mohamad Mouchli [facility] 10-15-2023 09:24-0400 Respiratory rate 10 /min Mohamad Mouchli [facility] 10-15-2023 07:13-0400 Body temperature 98.42 [degF] Mohamad Mouchli [facility] 09-13-2023 14:52-0400 Blood Pressure Location Mohamad Mouchli [facility] 09-13-2023 14:52-0400 Diastolic blood pressure 82 mm[Hg] Mohamad Mouchli [facility] 09-13-2023 14:52-0400 Heart rate 78 /min Mohamad Mouchli [facility] 09-13-2023 14:52-0400 Respiratory rate 16 /min Mohamad Mouchli [facility] 09-13-2023 14:52-0400 Systolic blood pressure 110 mm[Hg] Mohamad Mouchli [facility] 07-20-2023 18:58-0400 Body temperature 98.49 [degF] Gwen Danielson MD Work Phone: [facility] 07-20-2023 18:58-0400 Diastolic blood pressure 83 mm[Hg] Gwen Danielson MD Work Phone: [facility] 07-20-2023 18:58-0400 Heart rate 52 /min Gwen Danielson MD Work Phone: [facility] 07-20-2023 18:58-0400 Respiratory rate 18 /min Gwen Danielson MD Work Phone: [facility] 07-20-2023 18:58-0400 SaO2% (BldA) [Mass fraction] 98 % Gwen Danielson MD Work Phone: [facility] 07-20-2023 18:58-0400 Systolic blood pressure 135 mm[Hg] Gwen Danielson MD Work Phone: [facility] 07-20-2023 13:40-0400 Body height 167.6 cm Gwen Danielson MD Work Phone: [facility] 07-20-2023 13:40-0400 Body mass index (BMI) [Ratio] 19.05 kg/m2 Gwen Danielson MD Work Phone: [facility] 07-20-2023 13:40-0400 Body weight 53.52 kg Gwen Danielson MD Work Phone: [facility] Encounters Encounter Date Encounter Type Care Provider Facility Start: 01-16-2024 End: 01-16-2024 Phys/qhp telephone evaluation 5-10 min Urielvikram Palomareso DO Work Phone: [facility] Comment on above: Female infertility; Vaginal odor Start: 12-24-2023 End: 12-24-2023 Clinisync Result Encounter Generic External Data Provider [facility] External Department Unsolicited Start: 12-24-2023 End: 12-24-2023 Clinisync Result Encounter Generic External Data Provider [facility] External Department Unsolicited Start: 12-03-2023 End: 12-03-2023 ambulatory URIEL HALINA Not Available Start: 10-15-2023 End: 10-15-2023 ambulatory Alex Knutson Facility:[facility] Start: 10-15-2023 End: 10-15-2023 Patient encounter procedure Alex Knutson [facility] Start: 09-13-2023 End: 09-13-2023 ambulatory Alex Knutson Facility:[facility] Start: 09-13-2023 End: 09-13-2023 Patient encounter procedure Alex Knutson [facility] Start: 2023 ambulatory Alex Knutson Facilit y:[facility] Start: 08-23-2023 End: 08-23-2023 ambulatory CAROLYNE EDMONDS Not Available Start: 08-14-2023 Telephone encounter Karina Hand MD Work Phone: Endocrinology Comment on above: Results Start: 07-26-2023 End: 07-26-2023 ambulatory CAROLYNE EDMONDS Not Available Start: 07-20-2023 End: 07-20-2023 Emergency department patient visit Gwen Danielson MD Work Phone: [facility] Comment on above: Nausea and vomiting, unspecified vomiting type (Primary Dx); Gastritis, presence of bleeding unspecified, unspecified chronicity, unspecified gastritis type Start: 06-13-2023 End: 06-13-2023 [facility] Karina Cummings MD Work Phone: Endocrinology Comment on above: Prolactinoma (HCC) ( Primary Dx); 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HCC); Elevated prolactin level Start: 05-24-2023 End: 05-24-2023 ambulatory CAROLYNE EDMONDS Not Available Start: 03-19-2023 End: 03-19-2023 ambulatory URIEL MEADE Not Available Start: 03-19-2023 Patient encounter procedure Generic Provider [facility] Start: 02-22-2023 End: 02-22-2023 ambulatory CAROLYNE EDMONDS Not Available Start: 03-22-2020 End: 03-22-2020 Patient encounter procedure YASMIN MARTINEZ Facility:[facility] Start: 03-03-2020 Encounter for preprocedural laboratory examination YASMIN KARAUGIE [facility] Start: 02-25-2020 Encounter for other preprocedural examination YASMIN MCGEEAUGIE [facility] Start: 02-23-2020 End: 02-23-2020 Patient encounter procedure YASMIN MARTINEZ Facility:[facility] Start: 02-20-2020 End: 02-20-2020 Patient encounter procedure YASMIN MARTINEZ Facility:[facility] Start: 02-16-2020 End: 02-17-2020 Patient encounter procedure YASMIN MARTINEZ Facility:[facility] Encounter for other [facility]cedural [facility] Encounter for preprocedural laboratory examination YASMIN MCGEEILDEFONSOShan [facility] Procedures Date Procedure Procedure Detail Performing Clinician Start: 12-24-2023 [facility] PREG QUANT HCG Uriel Halina DO Work Phone: Start: 10-15-2023 Colonoscopy Alex Knutson Start: 10-15-2023 Esophagogastroduodenoscopy Alex rich Start: 07-20-2023 CT CHEST ABDOMEN PELVIS W [facility] Start: 07-20-2023 Lactate [Moles/volume] in Serum or Plasma [facility] Start: 07-20-2023 XR CHEST 1 VIEW [facility] Start: 07-20-2023 DRUG SCREEN,URINE [facility] Start: 07-20-2023 EXTRA URINE DORAN TUBE [facility] Start: 07-20-2023 URINALYSIS MICROSCOPIC WITH REFLEX CULTURE [facility] Start: 07-20-2023 URINALYSIS WITH REFLEX CULTURE AND MICROSCOPIC [facility] Start: 07-20-2023 Ct thorax w/contrast material Abiodun sarabia PA-C Work Phone: Start: 07-20-2023 CBC W Auto Differential panel - Blood [facility] Start: 07-20-2023 Comprehensive metabolic 2000 panel - Serum or Plasma [facility] Start: 07-20-2023 HUMAN CHORIONIC GONADOTROPIN, SERUM QUANTITATIVE [facility] Start: 07-20-2023 Lactate [Moles/volume] in Serum or Plasma [facility] Start: 07-20-2023 Lipase [Enzymatic activity/volume] in Serum or Plasma [facility] Start: 07-20-2023 TROPONIN I, HIGH SENSITIVITY [facility] Start: 07-20-2023 ECG 12-LEAD [facility] Start: 07-20-2023 INSERT PERIPHERAL IV [facility] Start: 07-20-2023 Assay of lactate Abiodun Ochoa PA-C Work Phone: Start: 07-20-2023 Radiologic exam chest single view Abiodun Ochoa PA-C Work Phone: Start: 07-20-2023 Drug tst prsmv instrmnt chem analyzers pr date Abiodun Ochoa PA-C Work Phone: Start: 07-20-2023 Urinalysis complete W Reflex Culture panel - Urine Abiodun Ochoa PA-C Work Phone: Start: 07-20-2023 Urnls dip stick/tablet reagent auto microscopy Abiodnu Ochoa PA-C Work Phone: Start: 07-20-2023 Comprehensive metabolic panel Abiodun sarabia PA-C Work Phone: Start: 07-20-2023 Ecg routine ecg w/least 12 lds trcg only w/o i&r Abiodun Ochoa PA-C Work Phone: Plan of Treatment Date Care Activity Detail Author Start: 2044 Zoster Vaccines (1 of 2) Zoste r Vaccines (1 of 2) [facility] Start: 03-26-2024 End: 03-26-2024 Patient encounter procedure 03/26/2024 1:00 PM EST Office Visit [facility] [address] [place] [id number] Uriel Meade, DO [address] [place] [address] [facility] Start: 03-24-2024 End: 03-24-2024 Patient encounter procedure 03/24/2024 4:00 PM EST Office Visit [facility] [address] [place] [id number] Uriel Meade, DO [address] [place] [address] [facility] Start: 11-04-2023 Influenza vaccination [facility] Start: 07-11-2023 End: 10-10-2023 Corticotropin [Mass/volume] in Plasma ACTH BLD Lab Routine 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HCC) Expected: 07/11/2023, Expires: 10/10/2023 [facility] Comment on above: Expected: 07/11/2023 , Expires: 10/10/2023 Start: 07-11-2023 End: 10-10-2023 Cortisol [Mass/volume] in Serum or Plasma CORTISOL, SERUM Lab Routine 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HCC) Expected: 07/11/2023, Expires: 10/10/2023 [facility] Comment on above: Expected: 07/11/2023 , Expires: 10/10/2023 Start: 07-11-2023 End: 10-10-2023 Estradiol (E2) [Mass/volume] in Serum or Plasma ESTRADIOL-17B BLD Lab Routine 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[facility]) Expected: 07/11/2023, Expires: 10/10/2023 [facility] Comment on above: Expected: 07/11/2023 , Expires: 10/10/2023 Start: 07-11-2023 End: 10-10-2023 Follitropin [Units/volume] in Serum or Plasma FOLLICLE STIMULATING HORMONE Lab Routine 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[facility]) Expected: 07/11/2023, Expires: 10/10/2023 [facility] Comment on above: Expected: 07/11/2023 , Expires: 10/10/2023 Start: 07-11-2023 End: 10-10-2023 INSULIN LIK GR FAC I INSULIN LIK GR FAC I Lab Routine 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[facility]) Expected: 07/11/2023, Expires: 10/10/2023 [facility] Comment on above: Expected: 07/11/2023 , Expires: 10/10/2023 Start: 07-11-2023 End: 10-10-2023 Lutropin [Units/volume] in Serum or Plasma LUTEINIZING HORMONE Lab Routine 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[facility]) Expected: 07/11/2023, Expires: 10/10/2023 [facility] Comment on above: Expected: 07/11/2023 , Expires: 10/10/2023 Start: 07-11-2023 End: 08-09-2024 MR Pituitary and Sella turcica WO and W contrast IV MRI PITUITARY WO/W IVCON Radiology Routine 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[facility]) Expected: 07/11/2023, Expires: 08/09/2024 [facility] Work Phone: Comment on above: Expected: 07/11/2023 , Expires: 08/09/2024 Start: 07-11-2023 End: 10-10-2023 Prolactin [Mass/volume] in Serum or Plasma PROLACTIN Lab Routine 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[facility]) Expected: 07/11/2023, Expires: 10/10/2023 [facility] Comment on above: Expected: 07/11/2023 , Expires: 10/10/2023 Start: 07-11-2023 End: 10-10-2023 Somatostatin [Mass/volume] in Plasma GROWTH HORMONE Lab Routine 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HCC) Expected: 07/11/2023, Expires: 10/10/2023 [facility] Comment on above: Expected: 07/11/2023 , Expires: 10/10/2023 Start: 07-11-2023 End: 10-10-2023 Thyrotropin [Units/volume] in Serum or Plasma THYROID STIMULATING HORMONE Lab Routine 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HCC) Expected: 07/11/2023, Expires: 10/10/2023 [facility] Comment on above: Expected: 07/11/2023 , Expires: 10/10/2023 Start: 07-11-2023 End: 10-10-2023 Thyroxine (T4) free [Mass/volume] in Serum or Plasma T4 FREE/FREE THYROXINE Lab Routine 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HCC) Expected: 07/11/2023, Expires: 10/10/2023 [facility] Comment on above: Expected: 07/11/2023 , Expires: 10/10/2023 Start: 03-05-2023 Behavioral Health Screening Behavioral Health Screening [facility] Start: 11-03-2022 Covid-19 Vaccine ( season) Covid-19 Vaccine ( season) [facility] Start: 05-29-2018 DTaP/Tdap/Td Vaccine s (3 - Td or Tdap) DTaP/Tdap/Td Vaccines (3 - Td or Tdap) [facility] Start: 05-29-2018 Urine microalbumin profile DTaP,Tdap,Td Vaccine (3 - Td or Tdap) [facility] Start: 08-30-2015 Screening for malign ant neoplasm of cervix [facility] Start: 07-13-2014 Hepatitis B Vaccine (3 of 3 - 19+ 3-dose series) Hepatitis B Vaccine (3 of 3 - 19+ 3-dose series) [facility] Start: 07-13-2014 Hepatitis B Vaccines (3 of 3 - 19+ 3-dose series) Hepatitis B Vaccines (3 of 3 - 19+ 3-dose series) [facility] Start: 05-12-2014 Hepatitis A Vaccines (2 of 2 - 2-dose series) Hepatitis A Vaccines (2 of 2 - 2-dose series) [facility] Start: 2012 Hepatitis C screening [facility]atitis C [facility] Start: 2012 HIV screening HIV Screening [facility] Start: 05-18-2010 Varicella vaccination Varicell a Vaccines (2 of 2 - 13+ 2-dose series) [facility] Start: 2000 Pneumococcal Vaccine : Pediatrics (0 to 5 Years) and At-Risk Patients (6 to 64 Years) (1 of 2 - PCV) Pneumococcal Vaccine: Pediatrics (0 to 5 Years) and At-Risk Patients (6 to 64 Years) (1 of 2 - PCV) [facility] Start: 07-06-1999 IPV Vaccines (2 of 3 - 4-dose series) IPV Vaccines (2 of 3 - 4-dose series) [facility] Start: 1994 HIV screening HIV Screening [facility] Start: 1994 Lipid panel Lipid Panel [facility] Start: 1994 Yearly Adult Physical Yearly Adult P hysical [facility] ECG 12 lead ECG 12 lead ECG STAT 07/20/2023 2:57 PM EDT [facility] Work Phone: End: 07-20-2023 Extra Urine Doran T[facility] Work Phone: Comment on above: Once for 1 Occurrenc es starting 07/20/2023 until 07/20/2023 End: 07-20-2023 Urinalysis complete W Reflex Culture panel - Urine [facility] Service Area Work Phone: Comment on above: Once (Lab) for 1 Occ urrences starting 07/20/2023 until 07/20/2023 Immunizations Immunization Date Immunization Notes Care Provider Fa cili 12-06-2015 influenza, injectabl e, quadrivalent, preservative free Generic Provider [facility] 12-06-2015 influenza virus vacc ine, unspecified formulation Karina Cummings MD Work Phone: [facility] 05-18-2014 hepatitis B vaccine, adult dosage Alex Knutson [facility] 03-30-2014 hepatitis B vaccine, adult dosage Mohamad Mouchli [facility] 11-12-2013 hepatitis A vaccine, pediatric/adolescent dosage, 2 dose schedule Generic Provider [facility] 11-12-2013 hepatitis A vaccine, unspecified formulation Mohamad Mouchli [facility] 11-12-2013 hepatitis B vaccine, pediatric or pediatric/adolescent dosage Mohamad Mouchli [facility] 11-12-2013 hepatitis A and hepatitis B vaccine Gwen Danielson MD Work Phone: [facility] Work Phone: 12-31-2012 influenza virus vacc ine, whole virus Generic Provider [facility] 12-31-2012 influenza, whole Payamamad Rosa stevan [facility] 04-20-2010 hepatitis A vaccine, pediatric/adolescent dosage, 2 dose schedule Generic Provider [facility] 04-20-2010 hepatitis A vaccine, unspecified formulation Mohamad Mouchli [facility] 04-20-2010 varicella virus vaccine Jeovanny Danielson MD Work Phone: [facility] 05-29-2008 meningococcal ACWY vaccine, unspecified formulation Mohamad Mouchli [facility] 05-29-2008 meningococcal polysaccharide (groups A, C, Y and W-135) diphtheria toxoid conjugate vaccine (MCV4P) Generic Provider [facility] 05-29-2008 tetanus toxoid, redu bridget diphtheria toxoid, and acellular pertussis vaccine, adsorbed Mohamad Mouchli [facility] 12-13-2006 HPV, unspecified formulation Mohamad Mouchli [facility] 12-13-2006 human papilloma viru s vaccine, quadrivalent Generic Provider [facility] 08-13-2006 HPV, unspecified formulation Mohamad Mouchli [facility] 08-13-2006 human papilloma viru s vaccine, quadrivalent Generic Provider [facility] 06-13-2006 HPV, unspecified formulation Alex Knutson [facility] 06-13-2006 human papilloma viru s vaccine, quadrivalent Generic Provider [facility] 06-08-1999 diphtheria, tetanus toxoids and acellular pertussis vaccine, unspecified formulation Generic [facility] 06-08-1999 DTaP, unspecified formulation Alex Knutson [facility] 06-08-1999 measles, mumps and rubella virus vaccine Payamamad Mouchhilario [facility] 06-08-1999 poliovirus vaccine, inactivated Generic Provider [facility] 06-08-1999 poliovirus vaccine, unspecified formulation Gwen Danielson MD Work Phone: [facility] Payers Date Payer Category Payer Unknown [id number] 2019 [facility] er [id number] 2019 Unknown [id number] 1994 Unknown [id number] 9.2.593 1994 Unknown [id number] [id number] 9.2.593 1994 Unknown [id number] [id number] 9.2.593 1994 Unknown [id number] 2.16.840.1.319202.3.57 9.2.593 1994 Unknown [id number] 2.16.840.1.862923.3.57 9.2.1243 1994 Unknown [id number] 2.16.840.1.271525.3.57 9.2.727 1994 Unknown [id number] 2.16.840.1.268414.3.57 9.2.727 1994 Unknown [id number] 2.16.840.1.446233.3.57 9.2.727 1994 Unknown [id number] 2.16.840.1.196802.3.57 9.2.1259 1994 Unknown [id number] 2.16.840.1.774946.3.57 9.2.1259 1994 Unknown [id number] 2.16.840.1.317555.3.57 9.2.1259 1994 Unknown [id number] 2.16.840.1.591853.3.57 9.2.1259 1994 Unknown [id number] 2.16.840.1.167728.3.57 9.2.1259 1994 Unknown [id number] [id number] 9.2.1259 1959 Unknown [id number] 1959 Unknown [id number] 1959 Unknown [id number] Social History Date Type Detail Facility Tobacco smoking stat [facility] Tobacco smoking consumption unknown [facility] Start: 06-13-2023 End: 08-23-2023 History of Social function [facility] Start: 06-13-2023 End: 08-23-2023 Area Deprivation Index [facility] National Score (1-10 0), lower number is lower risk 85 [facility] Start: 1994 Sex Assigned At Not on file [facility] Start: 07-10-2023 End: 07-20-2023 Exposure to SARS-CoV-2 (event) Not sure [facility] Work Phone: Start: 09-06-2022 End: 09-13-2023 Tobacco smoking status Never smoked tobacco (finding) [facility] Start: 12-03-2023 Alcoholic beverage intake Lifetime non-drinker (finding) [facility] Start: 09-06-2022 Alcohol Comment caffeine: none [facility] Functional Status Date Assessment Result Facility 10-15-2023 Functional Status N/A [facility] 09-13-2023 Functional Status N/A [facility] Clinical Notes 01-20-2021 to 01-16-2024 Shari Gomez LPN - 01/16/2024 8:10 AM EST Note Date & Type Note Facility 01-16-2024 History of Presen t illness Narrative Reason for Appointment: Patient ID: Indu St is a 28 y.o. female who presents for Telehealth and Infertility Patient presents today via telephone call for a telehealth appointment. Patients Phone #: [phone] (mobile) Current Medications: has a current medication list which includes the following prescription(s): alprazolam and breyna. Medical History: Active Ambulatory Problems Diagnosis Date Noted Bipolar 1 disorder ([facility]) 11/13/2022 Anxiety 12/21/2022 Asthma ([facility]) 12/21/2022 Attention deficit hyperactivity disorder (ADHD), combined type ([facility]) 12/21/2022 Proteinuria 08/03/2010 PTSD (post-traumatic stress disorder) ([facility]) 12/21/2022 Bipolar affective disorder, current episode hypomanic ([facility]) 12/21/2022 Well woman exam with routine gynecological exam 03/19/2023 Resolved Ambulatory Problems Diagnosis Date Noted No Resolved Ambulatory Problems Past Medical History: Diagnosis Date Abnormal uterine bleeding (AUB) ADHD (attention deficit hyperactivity disorder) ([facility]) Amenorrhea Bilateral sacroiliitis ([facility]) Cervical cancer ([facility]) Chronic fatigue Chronic rhinitis Chronic vaginitis Depression with anxiety Endometriosis Gynecological disorder History of medical problems Infertility counseling Low libido Miscarriage S/P laparoscopy Sciatica, unspecified side Seasonal allergic rhinitis, unspecified trigger Serous otitis media, unspecified chronicity, unspecified laterality URI (upper respiratory infection) 03/01/2019 Family History Problem Relation Name Age of Onset Lung cancer Mother Hypothyroidism Mother ADD / ADHD Mother Arthritis Father Lung cancer Father Hypertension Maternal Grandmother Cancer Maternal Grandmother Hypertension Maternal Grandfather Heart disease Maternal Grandfather Stroke Maternal Grandfather Cervical cancer Paternal Grandmother Clotting disorder Paternal Grandmother Hypertension Paternal Grandmother ADD / ADHD Sibling No Known Problems Daughter Social History Tobacco Use Smoking status: Never Smokeless tobacco: Not on file Substance Use Topics Alcohol use: Never Comment: caffeine: none Drug use: Not on file Past Surgical History: Procedure Laterality Date COLONOSCOPY 11/2023 DILATION AND CURETTAGE 03/2020 lap, D and C - at [facility] DILATION AND CURETTAGE OF UTERUS 03/07/2013 ; 08/13/2015 DILATION AND CURETTAGE OF UTERUS 10/27/2022 EGD 11/2023 HYSTEROSCOPY 06/12/2016 Laproscopy/hysterscopy Allergies Allergen Reactions Dust Mite Extract Unknown Vitals: Estimated body mass index is 17.59 kg/m as calculated from the following: Height as of 12/03/23: 5' 6 . Weight as of 12/03/23: 109 lb. BP: No LMP recorded. Assessment/Plan Encounter Diagnosis Name Primary? Female infertility Pt was called and reviewed HSG with pt and pt has appt with IVF clinic in [place]. Pt is having weird symptoms- anal itching, inability to sleep, night sweats, abdominal pain along with vaginal wall pain and rectal pain, strong vaginal odor. Rx for flagyl faxed to pharmacy. Pt advised to use tucks pads. Today's telehealth visit consisted of spending 10 minutes talking to patient on the phone. Documented by Shari Gomez LPN on behalf of: Uriel Meade DO documented in this encounter [facility] 10-15-2023 Evaluation + Plan note Extrac latisha from: Title:ANES Post General Author:Gus Moreno DO:10/15/23 Plan Transfer/Discharge: Patient exhibiting no signs of N/V. Hydration status is adequate. Extracted from: Title:Josh Basic PRE Author:Kenan Moreno DO Date:10/15/23 Plan [place] [employer]esthesi[employer] (ASA) physical status classification: Class II. Anesthetic Preoperative Plan: Anesthesia General. [facility] 08-12-2024 Hospital Discharge instructions Patient Education [...] day. 10/15/2023 09:50:26 Endoscopy, Care After Procedure [facility] Endoscopy Care After Procedure Please read the instructions outlined below and refer to this sheet in the next few weeks. These discharge instructions provide you with general information on [facility] Your doctor may also give you [...] Document Re-Released: 08/13/2006 ExitCare Patient Information 2009 [employer]. Follow Up Care 09/13/2023 15:40:21 With:Alex Knutson Address: [facility] [address], [address] [place] [address] [phone] Business (1) When:1 to 2 weeks Comments:Call for any problems. [facility] 08-12-2024 NoteProgress Note-Physician Patient: INDU ST [...] Daily, # 527 gm, Refills(s) 5, [facility]acy: [id number], 167, cm, 09/13/23 14:57:00 EDT, Height/Length Dosing, 48.9, kg, 09/13/23 14:57:00 EDT, Weight Dosing Pantoprazole [address] Tab: 40 mg = 1 tab(s), Oral, Daily, # 30 tab(s), Refills(s) 4, Pharmacy: [facility] #[id number], 167, cm, 09/13/23 14:57:00 EDT, Height/Length Dosing, [...] CT of the abdomen / SNOMED CT 3535087466 / Confirmed Abnormal uterine bleeding. / SNOMED CT 9538593335 / Confirmed Amenorrhea / SNOMED CT 13058008 / Confirmed Anemia / SNOMED CT 197456695 / Confirmed Anxiety / SNOMED CT 18466350 / Confirmed Asthma / SNOMED CT 060553059 / Confirmed Attention deficit hyperactivity disorder / SNOMED CT 1282366519 / Confirmed Benign neoplasm of pituitary gland / SNOMED CT 291658189 / Confirmed Bilateral arthritis of sacroiliac joint / SNOMED CT 7748713040 / Confirmed Bipolar disorder / SNOMED CT 25595958 / Confirmed Chronic rhinitis / SNOMED CT 422792079 / Confirmed Chronic vaginitis / SNOMED CT 70465503 / Confirmed Depressive disorder / SNOMED CT 08168045 / Confirmed Disorder of pituitary gland / SNOMED CT 2431386037 / Confirmed Endometriosis (clinical) / SNOMED CT 925306919 / Confirmed Esophagitis / SNOMED CT 38073151 / Confirmed Fatigue / SNOMED CT 548205685 / Confirmed Gastritis / SNOMED CT 9719807 / Confirmed Heartburn / SNOMED CT 84630729 / Confirmed History of laparoscopy / SNOMED CT 7694037219 / Confirmed Malignant tumor of cervix / SNOMED CT 976701896 / Confirmed Miscarriage / SNOMED CT 73288751 / Confirmed Nausea and vomiting / SNOMED CT 54053432 / Confirmed Pain in pelvis / SNOMED CT 456655243 / Confirmed Prolactin level above reference range / SNOMED CT 2449137028 / Confirmed Prolactinoma / SNOMED CT 624100259 / Confirmed Sciatica / SNOMED CT 87630837 / Confirmed Seasonal allergic rhinitis / SNOMED CT 369584428 / Confirmed Stress-related physiological response affecting medical condition / SNOMED CT 93814833 / Confirmed 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 Weight loss / SNOMED CT 902869486 / Confirmed Physical Examination Vital Signs 10/15/2023 [...] 36.7 DegC Heart Rate (more content not included)...[facility]Result Comment: Electronically Signed By: Lenny Moreno DO\.br\Date and Time Signed: 10/15/23 10:06 [id number] NoteColonoscopy Procedure Report Patient: INDU ST Age: [...] Daily, # 527 gm, Refills(s) 5, Pharmacy: [id number], 167, cm, 09/13/23 14:57:00 EDT, Height/Length Dosing, 48.9, kg, 09/13/23 14:57:00 EDT, Weight Dosing Pantoprazole [address] Tab: 40 mg = 1 tab(s), Oral, Daily, # 30 tab(s), Refills(s) 4, Pharmacy: [facility] #[id number], 167, cm, 09/13/23 14:57:00 EDT, Height/Length Dosing, [...] terminal ileum Images Procedure images: [id number]_hd_video_[id number].jpg Rec1_hd_video_4_[id number].jpg Rec1_hd_video_2023_08_12T08_40_[id number].jpg Rec1_hd_video_2023__[id number]_42_[id number].jpg Rec1_hd_video_2023__12T08_46_[id number].jpg Rec1_hd_video_2023_08_12T08_[id number]_[id number].jpg Rec1_hd_video_2023_08_12T08_47_14_[id number].jpg . Post-Procedure Complications: none. Estimated blood loss: none. Specimens: none. Devices/ implants: none left in place. Impression and Plan internal hemorrhoids Otherwise, normal colon Recommendations: Repeat colonoscopy:: At the age of 44 . Follow-up:: in clinic as scheduled. Diet:: Previous. Medication resumption:: Continue current medications, Avoid NSAIDs. Return to activities:: After 24 hours. Education and Follow-up: Counseled: Patient, Family.[facility] Comment on above:Other Comment: Missing Attachment - attachment storage system not supported [id number] Can be viewed in source system Missing Attachment - attachment storage system not supported [id number] Can be viewed in source systemMissing Attachment - attachment storage system not supported [id number] Can be viewed in source systemMissing Attachment - attachment storage system not supported [id number] Can be viewed in source systemMissing Attachment - attachment storage system not supported [id number] Can be viewed in source systemMissing Attachment - attachment storage system not supported [id number] Can be viewed in source systemMissing Attachment - attachment storage system not supported [id number] Can be viewed in source [id number] Note Patient Education - Text Colonoscopy Care [...] [facility] Your doctor may also give you specific [...] Document Re-Released: 08/13/2006 ExitCare? Patient Information ?2009 [employer].[facility] 10-15-2023 NoteProgress Note-Physician Patient: INDU ST [...] Daily, # 527 gm, Refills(s) 5, Pharmacy: [facility] #[id number], 167, cm, 09/13/23 14:57:00 EDT, Height/Length Dosing, 48.9, kg, 09/13/23 14:57:00 EDT, Weight Dosing Pantoprazole [address] Tab: 40 mg = 1 tab(s), Oral, Daily, # 30 tab(s), Refills(s) 4, Pharmacy: [facility] #[id number], 167, cm, 09/13/23 14:57:00 EDT, Height/Length Dosing, [...] CT of the abdomen / SNOMED CT 9453333050 / Confirmed Abnormal uterine bleeding. / SNOMED CT 9055027305 / Confirmed Amenorrhea / SNOMED CT 86057740 / Confirmed Anemia / SNOMED CT 686784437 / Confirmed Anxiety / SNOMED CT 82679072 / Confirmed Asthma / SNOMED CT 499273075 / Confirmed Attention deficit hyperactivity disorder / SNOMED CT 1340153689 / Confirmed Benign neoplasm of pituitary gland / SNOMED CT 520708297 / Confirmed Bilateral arthritis of sacroiliac joint / SNOMED CT 4907019036 / Confirmed Bipolar disorder / SNOMED CT 71507130 / Confirmed Chronic rhinitis / SNOMED CT 572120962 / Confirmed Chronic vaginitis / SNOMED CT 50995815 / Confirmed Depressive disorder / SNOMED CT 13612674 / Confirmed Disorder of pituitary gland / SNOMED CT 9543454420 / Confirmed Endometriosis (clinical) / SNOMED CT 437975622 / Confirmed Esophagitis / SNOMED CT 93024747 / Confirmed Fatigue / SNOMED CT 887787273 / Confirmed Gastritis / SNOMED CT 0189355 / Confirmed Heartburn / SNOMED CT 43073992 / Confirmed History of laparoscopy / SNOMED CT 9680849915 / Confirmed Malignant tumor of cervix / SNOMED CT 607585442 / Confirmed Miscarriage / SNOMED CT 22657491 / Confirmed Nausea and vomiting / SNOMED CT 56826624 / Confirmed Pain in pelvis / SNOMED CT 930981758 / Confirmed Prolactin level above reference range / SNOMED CT 0184079374 / Confirmed Prolactinoma / SNOMED CT 704623071 / Confirmed Sciatica / SNOMED CT 78881837 / Confirmed Seasonal allergic rhinitis / SNOMED CT 415888757 / Confirmed Stress-related physiological response affecting medical condition / SNOMED CT 11443525 / Confirmed Visceral hypersensitivity syndrome / SNOMED CT 2458594554 / Confirmed Weight loss / SNOMED CT 152231532 / Confirmed, Active Problems (31) Abnormal CT of the abdomen Abnormal uterine bleeding. 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 Bipolar disorder Chronic rhinitis Chronic vaginitis Depressive disorder Disorder of pituitary gland Endometriosis (cl (more content not included)...[facility] Comment on above:Result Comment: Electronically Signed By: Lenny Moreno DO\.br\Date and Time Signed: 10/15/23 07:34 [id number] Telephone encounter Note* Telephone Encounter - Twyla Salcedo MA - 08/14/2023 11:08 AM EDT Received MRI results completed 08/02/2023, scanned to chart Twyla Salcedo Occupational Therapist II Endocrinology & Metabolism [place] [facility] F20 & X20 [facility]06-11-2024 Miscellaneous Notes* Telephone Encounter - Twyla Salcedo MA - 08/14/2023 11:08 AM EDT Received MRI results completed 08/02/2023, scanned to chart Twyla Salcedo Occupational Therapist II Endocrinology & Metabolism [facility] F20 & X20 [facility] Reason for referral (narrative)* Consultation (Routine) - Authorized Specialty Diagnoses / Procedures Referred By Niki villeda Referred To Contact Gastroenterology Abiodun Ochoa PA-C [address] [facility] [address] [place] [address] Do [id number] Gastro1 [address] [facility] [address] [place] [address] Referral ID Status Reason Start Date Expiration Date Visits Requested Visits Authorized [id number] Authorized Specialty Services Required 07/20/2023 07/19/2024 1 1 [facility] Work Phone: 1(854) 840-195804-10-2024 NoteHNO ID: [id number] Author: KARINA CUMMINGS MD Service: ? Author [...] that will be counterproductive Karina Cummings MD., .A.C.E. DATE of SERVICE: June 13, 2023 TIME of SERVICE: 10:12 [facility]04-10-2024 History of Present illness Narrative* Karina Cummings [...] of SERVICE: 10:12 AM documented in [facility]11-18-2021 NoteHNO ID: [id number] Author: Renetta Beltran MD Service: Reproductive Endocrinology [...] Dr. Renetta Beltran M.D. Reproductive [facility]inology and [facility], Inc.[id number] NoteHNO ID: [id number] Author: ESVIN Martinez) Service: Radiology Author Type: Technologist Type: Progress [...] BY: RT Juan(R) January 20, 2021 12:29 [facility] note Future Appointments Appointment Date:10/01/2023 09:00:00 AM Scheduled Provider: Location:[facility] Appointment Type:Surgery FT [facility] Evaluation note* Diagnosis Prolactinoma (HCC)- Primary Benign neoplasm of pituitary gland and craniopharyngeal duct (pouch) 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HCC) Unspecified disorder of the pituitary gland and its hypothalamic control Elevated prolactin level Unspecified endocrine disorder documented [facility]* Diagnosis Nausea and vomiting, unspecified vomiting type- Primary Gastritis, presence of bleeding unspecified, unspecified chronicity, unspecified gastritis type documented in this encounter [facility] Work Phone: Evaluation note* Diagnosis Female infertility Female infertility of unspecified origin Vaginal odor Unspecified symptom associated with female genital organs documented [facility] Narrative No data available for this section [facility] Hospital Discharge instructions* Attachments The following attachments cannot be sent through Care Everywhere. * Gastritis ED ([place]) * Nausea and Vomiting, Adult ED ([place]) * Cannabis hyperemesis syndrome ([place]) [facility] Work Phone: Hospital Discharge instructions No data available for this section [facility] Progress note No data available for this section [facility] Summary Purpose Family History [...] STEM W/O W/CONTRAST MATERIAL Karina Cummings MD [address] [place] [address] [place] [address] Referral ID Status Reason Start Date Expiration Date Visits Requested Visits Authorized [id number] Pending Review Auto-Generat ed Referral 07/11/2023 08/09/2024 1 1 Additional Source Comments INFORMATION SOURCE (unrecogn ized section and content) DATE CREATED AUTHOR 04/15/2020 [facility] DATE CREATED AUTHOR AUTHOR'S ORGANIZ ATION 01/22/2021 [facility] DATE CREATED AUTHOR AUTHOR'S ORGANIZ ATION 01/22/2021 [facility] DATE CREATED AUTHOR AUTHOR'S ORGANIZ ATION 07/30/2023 [facility] DATE CREATED AUTHOR AUTHOR'S ORGANIZ ATION 08/24/2023 [facility] DATE CREATED AUTHOR AUTHOR'S ORGANIZ ATION 09/19/2023 [facility] DATE CREATED AUTHOR AUTHOR'S ORGANIZ ATION 10/16/2023 [facility] DATE CREATED AUTHOR AUTHOR'S ORGANIZ ATION 10/18/2023 [facility] DATE CREATED AUTHOR AUTHOR'S ORGANIZ ATION 10/19/2023 [facility] DATE CREATED AUTHOR AUTHOR'S ORGANIZ ATION 12/03/2023 [facility] EPIC Source Comments (unrecognize d section and content) In the event this informatio n is protected by the Federal Confidentiality of Alcohol and Drug Abuse Patient Records regulations: The Federal rules restrict any use of the information to criminally investigate or prosecute any alcohol or drug abuse patient.[facility] Hospital[facility] the event this information is protected by the Federal Confidentiality of Alcohol and Drug Abuse Patient Records regulations: The Federal rules restrict any use of the information to criminally investigate or prosecute any alcohol or drug abuse patient.[facility] Reason for Visit (unrecogniz ed section and content) Reason Comments Pituitary Problem Reason Comments n/v. chest pain Reason Comments Results Reason Comments Telehealth Infertility Care Teams (unrecognized sec tion and content) Board Saw Runner Relationship Specialty Start Date End Date Uriel Meade DO [address] [place] [address] Referring Civil Lawyer 06/05/23 Board Saw Runner Relationship Specialty Start Date End Date Uriel Meade DO [address] [place] [address] Referring Civil Lawyer 06/05/23 Board Saw Runner Relationship Specialty Start Date End Date Carolyne Edmonds MD [address] [place] [address] PCP - General Family Medicine 08/28/22 Board Saw Runner Relationship Specialty Start Date End Date Carolyne Edmonds MD [address] [place] [address] PCP - General Family Medicine 08/28/22 Scheduled Active and Recently Administ ered Medications [...] BE BASED ON THE PRIMARY CLINICAL RECORDS. [employer] [facility]. provides no warranty or guarantee of the accuracy or completeness of information in this document.
[2024-02-13 17:14] LABS: Thyroid Stimulating Hormone 1.748 uIU/mL (0.358-3.740)
[2024-02-13 17:18] LABS: HCG Quantitative <1 mIU/mL
[2024-02-15 08:10] LABS: Estradiol 68.9 pg/mL (.); FSH 10.9 mIU/mL (.); Luteinizing Hormone(LH) 9.8 mIU/mL (.); Progesterone 0.5 ng/mL (.)
== END 2024-02-13 16:07 | disposition home or self-care (01) ==
LOC: LAB 16:08
PROVIDERS: PCP Family Medicine
DX: Z31.41 Encounter for fertility testing (principal); Z31.83 Encounter for assisted reproductive fertility procedure cycle
CPT/HCPCS: 36415; 82670; 83001; 83002; 84144; 84443; 84702

== ENCOUNTER 2024-02-18 14:30 | Day surgery (SDC) | payer BC, SELFPAY ==
--- NOTE | 2024-02-18 14:36 | US_ITS ---
[address] [address] Patient Name: INDU ST MRN: [id number] date: 1995 Sex: F Assigned Patient Location: Current Patient Location: Accession/Order Number: [id number] Exam Date: 02/18/2024 14:40 Report Date: 02/18/2024 15:58 At the request of: NON-STAFF PHYSICIAN Procedure: US sonohysterography EXAM: US sonohysterography, US Cath for Sonohysterography HISTORY: Procreative Management Testing COMPARISON: None. TECHNIQUE: Informed consent was obtained. Preprocedural ultrasound with measurements of follicles followed by insertion of a 5 Kiswahili hysterosalpingogram catheter and infusion of 30 cc of sterile saline. FINDINGS: Preprocedural images: No The uterus is normal in size, contour and echotexture measuring 9.4 x 4.1 x 5.6 cm, anteverted. The endometrium measures 4 mm, trilaminar appearance The right ovary measures 3.0 x 2.6 x 2.0 cm. Normal color flow. 6 follicles: 0.6 x 0.6 x 0.5 cm 0.7 x 0.6 x 0.5 cm 0.5 x 0.5 x 0.4 cm 0.7 x 0.5 x 0.5 cm 0.4 x 0.3 x 0.3 cm 0.4 x 0.4 x 0.3 cm The left ovary measures 2.7 x 2.2 x 1.9 cm. Normal color flow. 3 focal follicles: 1.3 x 1.2 x 1.1 cm 0.8 x 0.6 x 0.4 cm 0.5 x 0.5 x 0.5 cm Following the injection of sterile saline the endometrial cavity demonstrates normal morphology. The endometrial lining measures 0.9 mm anteriorly and 1 mm posteriorly. No filling defect or evidence of mass or polyp. US/US sonohysterography IMPRESSION: Normal exam Electronically authenticated by: ROMY VIRGEN Date: 02/18/2024 15:58
--- NOTE | 2024-02-18 14:36 | US_ITS ---
[address] [address] Patient Name: INDU ST MRN: [id number] date: 1995 Sex: F Assigned Patient Location: Current Patient Location: US Accession/Order Number: [id number] Exam Date: 02/18/2024 14:40 Report Date: 02/18/2024 15:58 At the request of: NON-STAFF PHYSICIAN Procedure: US Cath for Sonohysterography EXAM: US sonohysterography, US Cath for Sonohysterography HISTORY: Procreative Management Testing COMPARISON: None. TECHNIQUE: Informed consent was obtained. Preprocedural ultrasound with measurements of follicles followed by insertion of a 5 Mongolian hysterosalpingogram catheter and infusion of 30 cc of sterile saline. FINDINGS: Preprocedural images: No The uterus is normal in size, contour and echotexture measuring 9.4 x 4.1 x 5.6 cm, anteverted. The endometrium measures 4 mm, trilaminar appearance The right ovary measures 3.0 x 2.6 x 2.0 cm. Normal color flow. 6 follicles: 0.6 x 0.6 x 0.5 cm 0.7 x 0.6 x 0.5 cm 0.5 x 0.5 x 0.4 cm 0.7 x 0.5 x 0.5 cm 0.4 x 0.3 x 0.3 cm 0.4 x 0.4 x 0.3 cm The left ovary measures 2.7 x 2.2 x 1.9 cm. Normal color flow. 3 focal follicles: 1.3 x 1.2 x 1.1 cm 0.8 x 0.6 x 0.4 cm 0.5 x 0.5 x 0.5 cm Following the injection of sterile saline the endometrial cavity demonstrates normal morphology. The endometrial lining measures 0.9 mm anteriorly and 1 mm posteriorly. No filling defect or evidence of mass or polyp. US/US Cath for Sonohysterography IMPRESSION: Normal exam Electronically authenticated by: ROMY VIRGEN Date: 02/18/2024 15:58
[2024-02-18 16:37] VITALS: BMI 17.4
== END 2024-02-18 15:40 | disposition home or self-care (01) ==
LOC: US 14:30
PROVIDERS: Radiology Diagnostic Radiology; PCP Family Medicine
DX: Z31.41 Encounter for fertility testing (principal)
CPT/HCPCS: 58340; 76831

== ENCOUNTER 2024-03-14 13:09 | Outpatient (OUT) | payer BC, SELFPAY ==
[2024-03-14 14:22] LABS: Estimated Average Glucose 105 mg/dL; Glycohemoglobin A1C 5.3 % (4.5-6.2)
[2024-03-14 14:45] LABS: Alanine Aminotransferase 47 U/L (14-59); Albumin Globulin Ratio 1.3; Albumin Level 4.3 g/dL (3.4-5.0); Alkaline Phosphatase 51 U/L (46-116); Anion Gap 14.1; Aspartate Amino Transferase 21 U/L (15-37); BUN Creatinine Ratio 16.7; Calcium 9.2 mg/dL (8.5-10.1); Chloride 104 mmol/L (98-107); Estimated GFR (African America >60 (>=60 mL/min/1.73m^2); Estimated GFR (Non-African Ame >60 (>=60 mL/min/1.73m^2); Globulin 3.2 g/dL; Glucose 87 mg/dL (74-106); Potassium 4.1 mmol/L (3.5-5.1); Sodium 142 mmol/L (136-145); Total Protein 7.5 g/dL (6.4-8.2)
[2024-03-15 06:08] LABS: HIV Ab/p24 Ag Screen Non Reactive (Non Reactive)
[2024-03-15 08:14] LABS: Testosterone 51 ng/dL (13-71)
[2024-03-15 09:07] LABS: HBsAg Screen Negative (Negative); HCV Antibody Non Reactive (Non Reactive); Varicella-Zoster V Ab, IgG Reactive (Non Reactive)
[2024-03-15 13:07] LABS: Rapid Plasma Reagin, Quant Non Reactive titer (NonRea<1:1)
[2024-03-15 22:40] LABS: Bilirubin Total 0.4 mg/dL (0.2-1.0)
[2024-03-17 21:06] LABS: Anti-Mullerian Hormone (AMH) 2.23 ng/mL (.)
== END 2024-03-14 13:10 | disposition home or self-care (01) ==
LOC: LAB 13:11
PROVIDERS: PCP Family Medicine; Visit Provider Obstetrics & Gynecology Reproductive Endocrinology
DX: Z31.41 Encounter for fertility testing (principal)
CPT/HCPCS: 36415; 80053; 82306; 82397; 82627; 83036; 84403; 86592; 86762; 86787; 86803; 86850; 86900; 86901; 87340; 87389

== ENCOUNTER 2024-04-08 13:40 | Outpatient (OUT) | payer BC, SELFPAY ==
--- NOTE | 2024-04-08 13:43 | US_ITS ---
[address] [address] Patient Name: INDU ST MRN: [id number] date: 1995 Sex: F Assigned Patient Location: Current Patient Location: Accession/Order Number: [id number] Exam Date: 04/08/2024 13:45 Report Date: 04/08/2024 14:39 At the request of: JADE MARIANO Procedure: US pelvis transvaginal EXAMINATION: US pelvis transvaginal HISTORY: Encounter for ART Procedure COMPARISON: No relevant comparison available. TECHNIQUE: Transabdominal and/or transvaginal sonographic examination was performed as indicated by examination type. FINDINGS: UTERUS: Normal size and appearance. Uterus size: 9.1 x 4.2 x 6.0 cm ENDOMETRIUM: Normal homogeneous appearance. Endometrial thickness: 2 mm RIGHT OVARY: Contains 9 follicles (9 mm follicles-1; 8 mm follicles-4; 5 mm follicles-1; 4 mm follicles-2; 3 mm follicles-1). Blood flow present within ovary on color Doppler. . Ovary size: 2.9 x 2.6 x 2.2 cm LEFT OVARY: Contains one 8 mm follicle. Blood flow present within ovary on color Doppler. . Ovary size: 1.4 x 1.7 x 2.3 cm CUL-DE-SAC: Unremarkable. No significant free fluid. BLADDER: Unremarkable. OTHER: None. US/US pelvis transvaginal IMPRESSION: 1. Thin endometrial lining, 2 mm. 2. Right ovary contains 9 small follicles as detailed above. 3. Left ovary contains one small follicle as detailed above. Electronically authenticated by: BRIAN NAYAK Date: 04/08/2024 14:39
--- OUTSIDE RECORDS SUMMARY | 2024-04-08 13:48 | XMS_ITS | CCD ---
Author Organization [facility] Care Team Providers Care Early Childhood Worker Name Role Phone YASMIN MARTINEZ Consulting Unavailable CAROLYNE EDMONDS Primary Care Unavailable RONALDKYASMIN Admitting Unavailable KARILDEFONSOKYASMIN Attending Unavailable GIGI COBB Unavailable KARASIK, YASMIN Admitting Unavailable KARASIK, YASMIN Attending Unavailable KARASIKYASMIN Consulting Unavailable KARASIK, YASMIN Consulting Unavailable KARASIK, YASMIN Admitting Unavailable KARASIK, YASMIN Attending Unavailable RONALDKHEATHERYASMIN Primary Care Unavailable KARLIDEFONSOK, YASMIN Admitting Unavailable KARILDEFONSOKYASMIN Attending Unavailable Uriel Meade DO R Unavailable Unavailable Primary Care Provider UnavailKARINA Tilley Attending Unavailable Carolyne Edmonds Primary Care Physician [phone] GWEN DANIELSON Attending Unavailable Mouchli, Mohamad A. Referring Unavailable Mouchli, Mohamad A. Admitting Unavailable Mohelena, Mohamad A. Attending Unavailable Alex Knutson Attending Unavailable Carolyne Edmonds Referring Unavailable Mouchli, Mohamad A. Referring Unavailable Mouchli, Mohamad A. Attending Unavailable Mohelena, Mohamad ATyrone Admitting Unavailable Carolyne Edmonds MD Primary Care Provider URIEL MEADE Attending Unavailable CAROLYNE EDMONDS Attending Unavailable CAROLYNE EDMONDS Attending Unavailable CAROLYNE EDMONDS Attending Unavailable URIEL MEADE Attending Unavailable CAROL MAGAÑA Attending Unavailable CAROLYNE EDMONDS Attending Unavailable Carolyne Edmonds Attending Unavailable Carolyne Edmonds Admitting Unavailable Carolyne Edmonds Attending Unavailable Carolyne Edmonds Admitting Unavailable Allergies Allergy Classification Reported Allergen(s) Allergy Type Date of Onset Reaction(s) Facility (1 source) No Known Medication Allergies; Translations: [No Known Medication Allergies] Propensity to adverse reactions (disorder) [facility] Repository (14 sources) House dust mite Allergy to substance [...] Status: Ordered ALPRAZolam 0.5 mg oral tablet (17 sources) Benzodiazepine Start: 09-13-2023 take 1 tablet by mouth three times daily as needed for anxiety Xanax 0.5 mg Tab 0.5 mg = 1 tab(s), Oral, TID, PRN for anxiety, Refills(s) 0 Start Date: 09/13/23 Status: Ordered Start: 09-09-2019 take 0.5 mg by mouth twice daily Xanax 0.5 mg, Oral, BID, Refills(s) 0, Anxiety Start Date: 09/09/19 Status: Ordered budesonide-formoterol (Breyna) 80-4.5 MCG/ACT inhaler (14 sources) Start: 08-23-2023 End: 08-22-2024 take 2 puff(s) by mouth once daily budesonide-formoterol (Breyna) 80-4.5 MCG/ACT inhaler Indications: Mild intermittent asthma without complication (CMS/HCC) Inhale 2 puffs Daily Rinse mouth with water after use to reduce aftertaste and incidence of candidiasis. Do not swallow. 10.2 g 2 08/23/2023 08/22/2024 Active cholecalciferol 0.025 mg oral tablet (3 sources) Vitamin D Start: 02-21-2024 take 1 tablet by mouth once daily cholecalciferol (Vitamin D-3) 25 MCG (1000 UT) tablet Indications: Female infertility , Fallopian tube disorder , Anovulation Take 1 tablet (25 mcg) by mouth Daily 60 tablet 3 02/21/2024 Active cyclophosphamide 50 mg oral capsule (2 sources) Alkylating Drug Start: 09-13-2023 cyclophosphamide 50 mg oral capsule Refills(s) 0, Other (see comment) Start Date: 09/13/23 Status: Ordered docosahexaenoic acid 120 mg / eicosapentaenoic acid 180 mg oral capsule (7 sources) Start: 01-22-2024 End: 02-20-2025 take 1 capsule by mouth once daily fish oil concentrate (Ouray-3) 1000 MG capsule Indications: Female infertility , Fallopian tube disorder , Anovulation Take 1 capsule (1 g) by mouth Daily 30 capsule 11 02/21/2024 02/20/2025 Active estradiol 2 mg oral tablet (2 sources) [...] continuous fashion 90 tablet 3 03/21/2021 Active methylphenidate hydrochloride 20 mg oral tablet (7 sources) Central Nervous System Stimulant Start: 08-23-2023 End: 08-22-2024 take 1 tablet by mouth in the morning methylphenidate (Ritalin) 20 MG tablet Indications: Attention deficit hyperactivity disorder (ADHD), combined type (CMS/HCC) Take 1 tablet (20 mg) by mouth in the morning and 1 tablet (20 mg) before bedtime. 60 tablet 08/23/2023 12/03/2023 Discontinued Start: 09-09-2019 take 1 tablet by rosa th twice daily Ritalin 20 mg oral tablet 20 mg = 1 tab(s), Oral, BID, Refills(s) 0, Other (see comment) Start Date: 09/09/19 Status: Ordered MiraLax 3350 Oral Pwdr for Recon 249 gram (1 source) Start: 09-16-2019 MiraLax 3350 Oral Pwdr for Recon 249 gram 17 gram, Oral, Daily, # 527 gram, Refills(s) 0, Pharmacy: [id number], 168, cm, 09/15/19 7:03:00 EDT, Height/Length Measured, 52, kg, 09/15/19 7:03:00 EDT, Weight Measured Start Date: 09/16/19 Status: Ordered ondansetron 4 mg disintegrating oral tablet (1 [...] pantoprazole 40 mg delayed release oral tablet (9 sources) Proton Pump Inhibitor Start: 09-13-[address] Tab 30 EA, 0 Refill(s), Refills(s) 0 Start Date: 09/13/23 Status: Ordered Start: 08-23-2023 End: 08-22-2024 take 1 tablet by mouth before mealtime pantoprazole (Protonix) 40 MG EC tablet Indications: Other acute gastritis without hemorrhage Take 1 tablet (40 mg) by mouth in the morning. Take before meals. Do not crush, chew, or split.. 30 tablet 1 08/23/2023 12/03/2023 Discontinued Start: 07-20-2023 End: 08-09-2023 take 1 tablet by mouth once daily pantoprazole (ProtoNix) 20 mg EC tablet Indications: Gastritis, presence of bleeding unspecified, unspecified chronicity, unspecified gastritis type Take 1 tablet (20 mg) by mouth once daily for 20 days. Do not crush, chew, or split. 20 tablet 07/20/2023 08/09/2023 Active polyethylene glycol 3350 34061 mg powder for oral solution (2 sources) Osmotic Laxative Start: 09-13-2023 take 17 g by mouth once daily Miralax 3350 17 gram packet 17 gm, Oral, Daily, # 527 gm, Refills(s) 5, Pharmacy: [id number], 167, cm, 09/13/23 14:57:00 EDT, Height/Length Dosing, 48.9, kg, 09/13/23 14:57:00 EDT, Weight Dosing Start Date: 09/13/23 Status: Ordered Vit-Fe Fumarate-FA ( Vitamins) 28-0.8 MG tablet (7 sources) Start: 02-21-2024 End: 02-20-2025 take 1 tablet by mouth once daily Vit-Fe Fumarate-FA ( Vitamins) 28-0.8 MG tablet Indications: Female infertility , Fallopian tube disorder , Anovulation Take 1 tablet by mouth Daily 30 tablet 11 02/21/2024 02/20/2025 Active Start: 01-22-2024 End: 01-21-2025 take 1 tablet by mouth once daily Vit-Fe Fumarate-FA ( Vitamins) 28-0.8 MG tablet Indications: Female infertility , Fallopian tube disorder , Anovulation Take 1 tablet by mouth Daily 30 tablet 11 01/22/2024 01/21/2025 Active Protonix 40 mg Tab-EC (1 source) Start: 09-09-2019 take 1 tablet by mouth once daily 30 minutes before breakfast Protonix 40 mg Tab-EC 40 mg = 1 tab(s), Oral, Daily, Take 30 minutes before breakfast, # 30 tab(s), Refills(s) 1, Pharmacy: [facility] #[id number], 168, cm, 09/09/19 8:18:00 EDT, Height/Length Measured, 52, kg, 09/09/19 8:18:00 EDT, Weight Measured Start Date: 09/09/19 Status: Ordered Completed/Discontinued Medications Medication Drug Class(es) [...] 1 dose lamoTRIgine 25 mg oral tablet (6 sources) Mood Stabilizer, Anti-epileptic Agent Start: 09-13-2023 take 1 tablet by mouth twice daily lamotrigine 25 mg Tab 42 EA, 0 Refill(s), TAKE 1 TABLET BY MOUTH DAILY FOR 14 DAYS THEN TAKE 1 TABLET BY MOUTH TWICE DAILY, Refills(s) 0 Start Date: 09/13/23 Status: Ordered Start: 07-26-2023 End: 12-03-2023 lamoTRIgine (LaMICtal) 25 MG tablet Indications: Bipolar 1 disorder (CMS/HCC) 25 mg daily x 14 days, then 25 mg twice daily 42 tablet 1 07/26/2023 12/03/2023 Discontinued metroNIDAZOLE 500 mg oral tablet (2 sources) [...] On Sun07/20/23 at 1815, For 1 dose ubidecarenone 100 mg / vitamin e 5 unt oral capsule (3 sources) Start: 02-21-2024 End: 03-22-2024 take 1 capsule by mouth once daily coenzyme Q-10 100 MG capsule Indications: Female infertility , Fallopian tube disorder , Anovulation Take 1 capsule (100 mg) by mouth Daily 30 capsule 3 02/21/2024 03/22/2024 Problems Active Problems Problem Classification Problem Date Documented Da te Episodic/Chronic Abdominal pain (4 sources) Pain in pelvis; Translations: [Visceral abdominal pain] Onset: 09-25-2022 09-13-2023 Episodic Abdominal pain (1 source) Pelvic and perineal pain; Translations: [PELVIC AND PERINEAL PAIN] Onset: 03-24-2020 Anxiety disorders (20 sources) Anxiety disorder, unspecified; Translations: [Anxiety] Onset: 03-24-2020 09-13-2023 Chronic Asthma (18 sources) Unspecified asthma, uncomplicated; Translations: [Asthma] Onset: 03-24-2020 09-13-2023 Chronic Attention-deficit, conduct, and disruptive behavior disorders (2 sources) Attention deficit hyperactivity disorder 09-13-2023 Chronic Attention-deficit, conduct, and disruptive behavior disorders (14 sources) Attention deficit hyperactivity disorder, combined type; [...] without bleeding] Onset: 09-13-2023 Episodic Female infertility (12 sources) Female infertility; Translations: [Female infertility, unspecified] Onset: 03-13-2024 01-16-2024 Chronic Gastritis and duodenitis (5 sources) [...] classified elsewhere] Onset: 09-13-2023 Chronic Mood disorders (20 sources) Bipolar disorder, unspecified; Translations: [Bipolar disorder] Onset: 03-24-2020 Chronic Nausea and vomiting (6 sources) Nausea and vomiting; Translations: [Nausea with vomiting, unspecified] Onset: 07-20-2023 07-20-2023 Episodic Other acquired deformities (1 source) Acquired scoliosis 05-16-2013 Chronic Other aftercare (1 source) 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; Translations: [OTH [facility] CURRENT DRUG THERAPY] Onset: 03-24-2020 Episodic Other and unspecified benign neoplasm (3 sources) Prolactinoma; Translations: [Benign neoplasm of pituitary gland] 07-11-2023 Episodic Other and unspecified benign neoplasm (1 source) Benign neoplasm of pituitary gland; 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)] Onset: 06-13-2023 Episodic Other connective tissue disease (8 sources) Muscle pain; Translations: [Myalgia, unspecified site] Onset: 02-18-2024 02-18-2024 Episodic Other endocrine disorders (3 sources) Disorder [...] noninflammatory disorders of vagina] 01-16-2024 Episodic Other female genital disorders (7 sources) Fallopian tube disorder; Translations: [Noninflammatory disorder of ovary, fallopian tube and broad ligament, unspecified] Onset: 03-13-2024 12-03-2023 Episodic Other gastrointestinal disorders (3 sources) Heartburn; [...] (2 sources) Seasonal allergic rhinitis 09-13-2023 Chronic Other upper respiratory disease (1 source) Vocal cord dysfunction 06-28-2011 Episodic Residual codes; unclassified (4 sources) Procedure [...] te Episodic/Chronic Genitourinary symptoms and ill-defined conditions (14 sources) Proteinuria; Translations: [Proteinuria, unspecified] Onset: 08-03-2010 12-21-2022 Episodic Inflammatory diseases of female pelvic organs (3 sources) Female pelvic peritoneal adhesions (postinfective); Translations: [Chronic vaginitis] Onset: 03-24-2020 09-13-2023 Episodic Other and unspecified benign neoplasm (2 sources) Benign neoplasm of pituitary gland Onset: 06-13-2023 09-13-2023 Episodic Unclassified (1 source) Onset: 09-12-2012 Resolved: 12-13-2012 09-10-2014 Results Test Name Value Interpretation Reference Range Facility [facility] HEMOGLOBIN A1Con 025 Glucose [Mass/Vol] 105 mg/dL [facility] HbA1c (Bld) [Mass fraction] 5.3 % 4.5 - 6.2 % [facility] Comment on above: ADA RECOMMENDED LIMI T 4.0 - 6.0 ADA THERAPEUTIC TARGET < 7.0 ACTION SUGGESTED > 7.0 [facility] JESUS Individual Abson 024 Anti-Centro B Ab See Refr Report Invalid Interpretation Code [facility] Comment on above: Performed By: #### 2 [id number] #### [facility] [address] [place] [address] WRITTEN AUTHORIZATIONon 02-02 Written Authorization Comment Invalid Interpretation Code [facility] Comment on above: Result Comment: Wrshahnaz evelin Authorization Received. Authorization received from ORIGINAL ORDER 02-20-2024 Logged by Valentina Peters Performed at: [address] [id number] PhD Randa Ochoa Performed By: #### 3 [id number] #### [facility] [address] [place] [address] RF Quanton 02-20-2024 Rheumatoid factor Qn 13.2 International_Unit/mL Invalid Interpretation Code <14.0 [facility] Comment on above: Result Comment: Perf ormed at: [address] [id number] PhD Randa Ochoa Performed By: #### 1 [id number] #### [facility] [address] [place] [address] CBC w/ Auto Diffon 4 Basophils/100 WBC (Bld) 0.3 % Normal 0.0-2.0 [facility] Comment on above: Performed By: #### 2 [id number] #### [facility] [address] [place] [address] Erythrocyte distribution width (RBC) [Ratio] 14.3 % High 10.9-14.2 [facility] Comment on above: Performed By: #### 2 [id number] #### [facility] [address] [place] [address] Hematocrit (Bld) [Volume fraction] 40.4 % Normal 34.0-46.0 [facility] Comment on above: Performed By: #### 2 [id number] #### [facility] [address] [place] [address] 39494 Lymphocytes/100 WBC (Bld) 16.1 % Normal 14.0-50.0 [facility] Comment on above: Performed By: #### 2 [id number] #### [facility] [address] [place] [address] 65236 Neutrophils/100 WBC (Bld) 75.3 % High 36.0-75.0 [facility] Comment on above: Performed By: #### 2 [id number] #### [facility] [address] [place] [address] Platelet mean volume (Bld) [Entitic vol] 8.5 fL Normal 6.4-10.8 [facility] Comment on above: Performed By: #### 2 [id number] #### [facility] [address] [place] [address] Basophils/Leukocytes Auto (Bld) [Pure # fraction] 0.0 E9/L Normal 0.0-0.2 [facility] Comment on above: Performed By: #### 2 [id number] #### [facility] [address] [place] [address] Eosinophils (Bld) [#/Vol] 0.0 E9/L Normal 0.0-0.5 [facility] Comment on above: Performed By: #### 2 [id number] #### [facility] [address] [place] [address]38 Eosinophils/100 WBC (Bld) 0.4 % Normal 0.0-8.0 [facility] Comment on above: Performed By: #### 2 [id number] #### [facility] [address] [place] [address]138 Hemoglobin (Bld) [Mass/Vol] 14.2 g/dL Normal 12.0-16.0 [facility] Comment on above: Performed By: #### 2 [id number] #### [facility] [address] [place] [address] 32332 Lymphocytes (Bld) [#/Vol] 1.1 E9/L Normal 1.0-4.0 [facility] Comment on above: Performed By: #### 2 [id number] #### [facility] [address] [place] [address] MCH (RBC) [Entitic mass] 30.4 pg Normal 27.0-34.0 [facility] Comment on above: Performed By: #### 2 [id number] #### [facility] [address] [place] [address] MCHC (RBC) [Mass/Vol] 35.1 g/dL Normal 31.4-36.0 [facility] Comment on above: Performed By: #### 2 [id number] #### [facility] [address] [place] [address] MCV (RBC) [Entitic vol] 86.7 fL Normal 80.0-100.0 [facility] Comment on above: Performed By: #### 2 [id number] #### [facility] [address] [place] [address] Monocytes (Bld) [#/Vol] 0.5 E9/L Normal 0.2-1.0 [facility] Comment on above: Performed By: #### 2 [id number] #### [facility] [address] [place] [address] Neutrophils (Bld) [#/Vol] 5.1 E9/L Normal 2.0-7.5 [facility] Comment on above: Performed By: #### 2 [id number] #### [facility] [address] [place] [address] Platelet 235.0 E9/L Normal 150.0-500.0 [facility] Comment on above: Performed By: #### 2 [id number] #### [facility] [address] [place] [address] RBC (Bld) [#/Vol] 4.7 E12/L Normal 4.3-5.9 [facility] Comment on above: Performed By: #### 2 [id number] #### [facility] [address] [place] [address] WBC corrected for nucl RBC Auto (Bld) [#/Vol] 6.8 E9/L Normal 4.0-11.0 [facility] Comment on above: Performed By: #### 2 [id number] #### [facility] [address] [place] [address] CHEMISTRYOrdered By: SYSTEM SYSTEM on 02-18-2024 Albumin [Mass/Vol] 4.5 g/dL Normal 3.3 - 5.0 gm/dL [facility] Albumin/Globulin [Mass ratio] 1.6 {ratio} Normal 1.1 - 2.2 [facility] ALP [Catalytic activity/Vol] 55 [iU]/d Normal 21 - 98 Int._Unit/L [facility] ALT No additional P-5'-P [Catalytic activity/Vol] 13 [iU]/d Normal 6 - 46 Int._Unit/L [facility] Anion gap [Moles/Vol] 14 mmol/L Normal 6 - 16 mEq/L R [facility] AST [Catalytic activity/Vol] 13 [iU]/d Normal 5 - 43 Int._Unit/L [facility] Bilirubin [Mass/Vol] 0.5 mg/dL Normal 0.0 - 1 .1 mg/dL [facility] Calcium [Mass/Vol] 9.3 mg/dL Normal 8.9 - 11. 1 mg/dL [facility] Chloride [Moles/Vol] 103 mmol/L Normal 101 - 1 11 mmol/L [facility] CO2 [Moles/Vol] 26 mmol/L Normal 21 - 31 mmol/L [facility] Creatinine [Mass/Vol] 0.7 mg/dL Normal 0.5 - 1.3 mg/dL [facility] eGFR 120 mL/min/1.73 m2 Normal >=59mL/mi n/1 .73 m2 [facility] Globulin (S) [Mass/Vol] 2.9 g/dL Normal 1.4 - 4.0 gm/dL [facility] Glucose [Mass/Vol] 86 mg/dL Normal 55 - 199 mg/dL [facility] Potassium [Moles/Vol] 4.0 mmol/L Normal 3.5 - 5.3 mmol/L [facility] Protein [Mass/Vol] 7.4 g/dL Normal 6.0 - 7.8 gm/dL [facility] Sodium [Moles/Vol] 139 mmol/L Normal 135 - 145 mmol/L [facility] Urea nitrogen [Mass/Vol] 13 mg/dL Normal 5 - 21 mg/dL [facility] Urea nitrogen/Creatinine [Mass ratio] 19 mg/mg Normal 10 - 20 [facility] CMPon 02-18-2024 Albumin [Mass/Vol] 4.5 g/dL Normal 3.3-5.0 [facility] Comment on above: Performed By: #### 2 [id number] #### [facility] [address] [place] [address] Albumin/Globulin (S) [Mass conc ratio] 1.6 Normal 1.1-2.2 [facility] Comment on above: Performed By: #### 2 [id number] #### [facility] [address] [place] [address] ALP [Catalytic activity/Vol] 55 Int._Unit/L Normal 21-98 [facility] Comment on above: Performed By: #### 2 [id number] #### [facility] [address] [place] [address] ALT No additional P-5'-P [Catalytic activity/Vol] 13 Int._Unit/L Normal 6-46 [facility] Comment on above: Performed By: #### 2 [id number] #### [facility] [address] [place] [address] Anion gap [Moles/Vol] 14 mmol/L Normal 6-16 [facility] Comment on above: Performed By: #### 2 [id number] #### [facility] [address] [place] [address] AST [Catalytic activity/Vol] 13 Int._Unit/L Normal 5-43 [facility] Comment on above: Performed By: #### 2 [id number] #### [facility] [address] [place] [address] Bilirubin [Mass/Vol] 0.5 mg/dL Normal 0.0-1.1 [facility] Comment on above: Performed By: #### 2 [id number] #### [facility] [address] [place] [address] Calcium [Mass/Vol] 9.3 mg/dL Normal 8.9-11.1 [facility] Comment on above: Performed By: #### 2 [id number] #### [facility] [address] [place] [address] Chloride [Moles/Vol] 103 mmol/L Normal 101-[address] [facility] Comment on above: Performed By: #### 2 [id number] #### [facility] [address] [place] [address] CO2 [Moles/Vol] 26 mmol/L Normal 21-31 [facility] Comment on above: Performed By: #### 2 [id number] #### [facility] [address] [place] [address] Creatinine [Mass/Vol] 0.7 mg/dL Normal 0.5-1.3 [facility] Comment on above: Performed By: #### 2 [id number] #### [facility] [address] [place] [address] Globulin (S) [Mass/Vol] 2.9 g/dL Normal 1.4-4.0 [facility] Comment on above: Performed By: #### 2 [id number] #### [facility] [address] [place] [address] Glucose [Mass/Vol] 86 mg/dL Normal 55-199 [facility] Comment on above: Performed By: #### 2 [id number] #### [facility] [address] [place] [address] Potassium [Moles/Vol] 4.0 mmol/L Normal 3.5-5.3 [facility] Comment on above: Performed By: #### 2 [id number] #### [facility] [address] [place] [address] Protein [Mass/Vol] 7.4 g/dL Normal 6.0-7.8 [facility] Comment on above: Performed By: #### 2 [id number] #### [facility] [address] [place] [address] Sodium [Moles/Vol] 139 mmol/L Normal 135-145 [facility] Comment on above: Performed By: #### 2 [id number] #### [facility] [address] [place] [address] Urea nitrogen [Mass/Vol] 13 mg/dL Normal 5-21 [facility] Comment on above: Performed By: #### 2 [id number] #### [facility] [address] [place] [address] Urea nitrogen/Creatinine [Mass ratio] 19 No Units Normal 10-20 [facility] Comment on above: Performed By: #### 2 [id number] #### [facility] [address] [address] [facility] CBC W/ AUTO DIFFon 02-02 EOSINOPHILS/100 LEUKOCYTES:NFR:PT:BLD:Q N:AUTOMATED COUNT 0.4 % 0.0 - 8.0 % [facility] EOSINOPHILS:NCNC:PT:BLD :QN: 0 [facility] BASOPHILS/LEUKOCYTES:NF R.DF:PT:BLD:QN:AUTOMATE D COUNT 0 [facility] ERYTHROCYTE MEAN CORPUSCULAR HEMOGLOBIN CONCENTRATION:MCNC:PT:R BC:QN 35.1 [facility] ERYTHROCYTE MEAN CORPUSCULAR HEMOGLOBIN:ENTMASS:PT:R BC:QN 30.4 pg 27.0 - 34.0 pg [facility] ERYTHROCYTE MEAN CORPUSCULAR VOLUME:ENTVOL:PT:RBC:QN :AUTOMATED COUNT 86.7 fL 80.0 - 100.0 fL [facility] ERYTHROCYTES:NCNC:PT:BL D:QN:AUTOMATED COUNT 4.7 [facility] HEMOGLOBIN:MCNC:PT:BLD: QN: 14.2 [facility] LEUKOCYTES 6.8 [facility] MONOCYTES:NCNC:PT:BLD:Q N:AUTOMATED COUNT 0.5 [facility] NEUTROPHILS:NCNC:PT:BLD :QN:AUTOMATED COUNT 5.1 [facility] Interpretation and review of laboratory results Abnormal [facility] LYMPHOCYTES:NCNC:PT:BLD :QN: 1.1 [facility] Platelets (Bld) [#/Vol] 235 10*3/uL [facility] Original Ordering Provider: MD Carolyne BARBERISYRAKEL [facility] HEMATOLOGYOrdered By: SYSTEM SYSTEM on 02-18-2024 Basophils/100 WBC (Bld) 0.3 % Normal 0.0 - 2.0 % [facility] Basophils/Leukocytes Auto (Bld) [Pure # fraction] 0.0 E9/L Normal 0.0 - 0.2 E9/L [facility] Eosinophils (Bld) [#/Vol] 0.0 E9/L Normal 0.0 - 0.5 E9/L [facility] Eosinophils/100 WBC (Bld) 0.4 % Normal 0.0 - 8.0 % [facility] Erythrocyte distribution width (RBC) [Ratio] 14.3 % High 10.9 - 14.2 % [facility] Hematocrit (Bld) [Volume fraction] 40.4 % Normal 34.0 - 46.0 % [facility] Hemoglobin (Bld) [Mass/Vol] 14.2 g/dL Normal 12.0 - 16.0 gm/dL [facility] Lymphocytes (Bld) [#/Vol] 1.1 E9/L Normal 1.0 - 4.0 E9/L [facility] Lymphocytes/100 WBC (Bld) 16.1 % Normal 14.0 - 50.0 % [facility] MCH (RBC) [Entitic mass] 30.4 pg Normal 27.0 - 34.0 pg [facility] MCHC (RBC) [Mass/Vol] 35.1 g/dL Normal 31.4 - 36.0 gm/dL [facility] MCV (RBC) [Entitic vol] 86.7 fL Normal 80.0 - 100.0 fL [facility] Monocytes (Bld) [#/Vol] 0.5 E9/L Normal 0.2 - 1.0 E9/L Remisol Heme Monocytes/100 WBC (Bld) 7.9 % Normal 4.0 - 14.0 % [facility] Heme Neutrophils (Bld) [#/Vol] 5.1 E9/L Normal 2.0 - 7.5 E9/L [facility] Heme Neutrophils/100 WBC (Bld) 75.3 % High 36.0 - 75.0 % [facility] Heme Platelet 235.0 E9/L Normal 150.0 - 500.0 E9/L [facility] Heme Platelet mean volume (Bld) [Entitic vol] 8.5 fL Normal 6.4 - 10.8 fL [facility]e RBC (Bld) [#/Vol] 4.7 E12/L Normal 4.3 - 5.9 E12/L [facility] Heme WBC corrected for nucl RBC Auto (Bld) [#/Vol] 6.8 E9/L Normal 4.0 - 11.0 E9/L [facility]e HEMATOLOGYOrdered By: Aldair Lopez on 02-18-2024 ESR (Bld) [Velocity] 14 mm/h Normal 0 - 34 mm/hr FT [facility] HemeAutoSS Sed Rate Automatedon 024 ESR (Bld) [Velocity] 14 mm/h Normal 0-[address] [facility] Comment on above: Performed By: #### 1 [id number] #### [facility] [address] [place] [address] eGFRon 02-18-2024 eGFR 120 mL/min/1.73 m2 Normal >=59 [facility] Comment on above: Performed By: #### 1 [id number] #### [facility] [address] [place] [address] ALL THYROID STIM HORMONEon 04-15-2023 TSH Qn 1.748 m[IU]/L [facility] HCGon 024 HCG QUANTITATIVE <1 mIU/mL [facility] Comment on above: 5-50 0.2-1 WEEK 50-500 1-2 WEEKS 100-5,000 2-3 WEEKS 500-10,000 3-4 WEEKS 1,000-50,000 4-5 WEEKS 10,000-100,000 5-6 WEEKS 15,000-200,000 6-8 WEEKS 10,000-100,000 2-3 MONTHS TBH PREG QUANT HCGon 024 HCG QUANTITATIVE <1 mIU/mL [facility] Comment on above: 5-50 0.2-1 WEEK 50-500 1-2 WEEKS 100-5,000 2-3 WEEKS 500-10,000 3-4 WEEKS 1,000-50,000 4-5 WEEKS 10,000-100,000 5-6 WEEKS 15,000-200,000 6-8 WEEKS 10,000-100,000 2-[facility] PROGESTERONEon 4 PROGESTERONE 10.8 ng/mL . [facility] Comment on above: Follicular phase 0.1 - 0.9 Luteal phase 1.8 - 23.9 Ovulation phase 0.1 - 12.0 First trimester 11.0 - 44.3 Second trimester 25.4 - 83.3 Third trimester 58.7 - 214.0 Postmenopausal 0.0 - 0.1 Performed at: [facility] [id number] Alumni Relations Officer: Don Tolentino PhD, Phone: [phone] [facility] Surgical Pathology Reporton 10-17-2023 Surgical Pathology Report [address] [address]- Surgical Pathology Report Collected Date/Time: 10/15/2023 09:32 [...] is entirely submitted in one cassette. (DC) DC:[facility] Microscopic Description A-C: Microscopic examination performed unless gross only specified. The use of one or more reagents in the above tests is regulated as an analyte specific reagent (ASR). The test or tests are ordered following initial H&E microscopic examination. The performance characteristics were determined by the Laboratory of [facility]. They have not been cleared or approved by the US Food and Drug Administration. The FDA has determined that such clearance or approval is not necessary. These tests are used for clinical purposes. They should not be regarded as investigational or for research. Appropriate positive and negative controls are performed and are acceptable. Normal [facility] Comment on above: Performed By: #### 4 [id number] #### [facility] [address] [place] [address] Main OR Intraoperative Recor don 10-16-2023 Main OR Intraoperative Record Main OR Intraoperative Record IntraOp Document Type FT Summary Primary Physician: Alex Knutson MD Finalized Date/Time: 10/16/23 12:11:53 Pt. Name: INDU ST/Sex: 1995 Female Med Rec #: [id number] Physician: Alex Knutson MD Financial #: [id number] Pt. Type: O Room/Bed: / Admit/Disch: 10/15/23 [...] RN, Promise Willis Role Performed Anesthesiologist of [employer] - Primary Scrub - Primary Record Time In 10/15/23 09:16:00 10/15/23 09:16:00 10/15/23 09:16:00 Time Out 10/15/23 09:40:00 10/15/23 09:40:00 10/15/23 09:40:00 Procedure EGD AND COLONOSCOPY(.) EGD AND COLONOSCOPY(.) EGD AND COLONOSCOPY(.) Comments Last Modified By: Brennan WHITE, Kristen Amin RN, Kristen Amin RN, Kristen 10/15/23 09:40:17 10/15/23 09:40:17 10/15/23 09:40:17 Entry [...] Antibiotic No Time Out Lenny Moreno DO, Brennan WHITE, Tolu Peterson Kirstyn K, Zenia ELLISON, Alex Berry Time [...] COLONOSCOPY Primary Procedure Yes Primary Surgeon Alex Knutson MD Start 10/15/23 09:21:00 Stop 10/15/23 09:38:00 [...] and tissue Entry 1 Skin Integrity Intact, [place], Warm, & Skin Abnormality No Dry Outcomes [...] and symptom (more content not included)... Normal [facility] B hCG Qualon 10-15-2023 Beta HCG ( test) Ql Negative Normal [facility] Comment on above: Performed By: #### 2 [id number] #### [facility] [address] [place] [address] Discharge Instructionson Discharge Instructions Discharge Instruc tions [...] weeks Comments: Call for any problems. Where: [address], [address] [place] [phone] Business (1) Medications What How Much When [...] MEDICATIONS Yo (more content not included)... Normal [facility] Comment on above: Result Comment: Elec tronically Signed By: Obi WHITE, Harris.seble\Date and Time Signed: 10/15/23 09:50 EDT EGDon [...] Daily, # 527 gm, Refills(s) 5, Pharmacy: [facility] #[id number], 167, cm, 09/13/23 14:57:00 EDT, Height/Length Dosing, 48.9, kg, 09/13/23 14:57:00 EDT, Weight Dosing Pantoprazole [address] Tab: 40 mg = 1 tab(s), Oral, Daily, # 30 tab(s), Refills(s) 4, Pharmacy: [facility] #[id number], 167, cm, 09/13/23 14:57:00 EDT, Height/Length Dosing, [...] duodenum. Biopsies obtained Images Procedure images: Rec1_hd_video_ [id number].jpg Rec_hd_video_ [id number].jpg Rec1_hd_video_ [id number].jpg Rec1_hd_video_ [id number].jpg Rec1_hd_video_ [id number].jpg Rec1_hd_video_ [id number].jpg . Post-Procedure Complications: none. Estimated blood loss: minimal. Specimens: sent to pathology. Devices/ implants: none left in place. Impression and Plan mild gastropathy Recommendations: -Resume previous diet -Resume home medications -Await pathology results, follow in GI clinic in 1-2 after discharge [facility] Comment on above: Other Comment: Griselda blanco Attachment - attachment storage system not supported [id number] Can be viewed in source system Missing Attachment - attachment storage system not supported [id number] Can be viewed in source system Missing Attachment - attachment storage system not supported [id number] Can be viewed in source system Missing Attachment - attachment storage system not supported [id number] Can be viewed in source system Missing Attachment - attachment storage system not supported [id number] Can be viewed in source system Missing Attachment - attachment storage system not supported [id number] Can be viewed in source system Main OR PACU I Recordon 10-03 Main OR PACU I Record Main OR PACU I Rec ord PACU Phase I Document Type FT Summary Primary Physician: Alex Knutson MD Finalized Date/Time: 10/15/23 10:19:29 Pt. Name: INDU ST/Sex: 1995 Female Med Rec #: [id number] Physician: Alex Knutson MD Financial #: [id number] Pt. Type: O Room/Bed: / Admit/Disch: 10/15/23 [...] By: Mery Crocker RN 10/15/23 10:19 Normal [facility] Main OR Preoperative Recordo n 10-15-2023 Main OR Preoperative Record Main OR Preoperative Record Holding Area Document Type FT Summary Primary Physician: Alex Knutson MD Finalized Date/Time: 10/15/23 07:13:13 Pt. Name: INDU ST /Sex: 1995 Female Med Rec #: [id number] Physician: Alex Knutson MD Financial #: [id number] Pt. Type: O Room/Bed: / Admit/Disch: 10/15/23 [...] By: Ofe Atkins RN 10/15/23 07:13 Normal [facility] SEROLOGYOrdered By: Germaine Sauer on 10-15-2023 Beta HCG ( test) Ql Negative (10/15/23 7:55 AM) Normal [facility] Sero Ambulatory Visit Summaryon 0 09-13-2023 Ambulatory Visit Summary Ambulatory Visit Summary INDU ST :1995 Visit Date:09/13/2023 Ambulatory Visit Instructions Your Diagnosis Weight loss Nausea and vomiting Heartburn Bipolar disorder Stress-related physiological response affecting medical condition Visceral hypersensitivity syndrome Abnormal CT of the abdomen Esophagitis Your Care Team Attending Physician - Zenia ELLISON, Alex Berry Primary Care Physician - Carolyne Edmonds MD [...] Visceral hypersensitivity syndrome Refills: 4 Pickup at [facility] #[id number] New polyethylene glycol 3350 (Miralax 3350 17 gram packet) 17 Gram By Mouth Every day Weight loss Nausea and vomiting Heartburn Bipolar disorder Stress-related physiological response affecting medical condition Visceral hypersensitivity syndrome Refills: 5 Pickup at [facility] #[id number] Unchanged alprazolam (Xanax 0.5 mg Tab) 1 [...] physician if questions or concerns [id number] [address] [place], [place] [phone] Allergies No Known Medication Allergies Problems Ongoing [...] for choosing us for your care. Normal [facility] Gastroenterology Office/Clin ic Noteon 09-13-2023 Gastroenterology Office/Clinic [...] Daily, # 30 tab(s), Refills(s) 4, Pharmacy: [facility] #[id number], 167, cm, 09/13/23 14:57:00 EDT, Height/Length Dosing, 48.9, kg, 09/13/23 14:57:00 EDT, Weight Dosing polyethylene glycol 3350, 17 gm, Oral, Daily, # 527 gm, Refills(s) 5, Pharmacy: [facility] #[id number], 167, cm, 09/13/23 14:57:00 EDT, Height/Length Dosing, 48.9, kg, 09/13/23 14:57:00 EDT, Weight Dosing Colonoscopy (Hospital Procedure) EGD Endoscopy (Hospital Procedure) 2. Nausea and vomiting (R11.2: Nausea with vomiting, unspecified) Ordered: pantoprazole, 40 mg = 1 tab(s), Oral, Daily, # 30 tab(s), Refills(s) 4, Pharmacy: [facility] #[id number], 167, cm, 09/13/23 14:57:00 EDT, Height/Length Dosing, 48.9, kg, 09/13/23 14:57:00 EDT, Weight Dosing polyethylene glycol 3350, 17 gm, Oral, Daily, # 527 gm, Refills(s) 5, Pharmacy: [facility] #[id number], 167, cm, 09/13/23 14:57:00 EDT, Height/Length Dosing, 48.9, kg, 09/13/23 14:57:00 EDT, Weight Dosing Colonoscopy (Hospital Procedure) EGD Endoscopy (Hospital Procedure) 3. Heartburn (R12: Heartburn) Ordered: pantoprazole, 40 mg = 1 tab(s), Oral, Daily, # 30 tab(s), Refills(s) 4, Pharmacy: [facility] #[id number], 167, cm, 09/13/23 14:57:00 EDT, Height/Length Dosing, 48.9, kg, 09/13/23 14:57:00 EDT, Weight Dosing polyethylene glycol 3350, 17 gm, Oral, Daily, # 527 gm, Refills(s) 5, Pharmacy: [facility] #[id number], 167, cm, 09/13/23 14:57:00 EDT, Height/Length Dosing, 48.9, kg, 09/13/23 14:57:00 EDT, Weight Dosing Colonoscopy (Hospital Procedure) EGD Endoscopy (Hospital Procedure) 4. Bipolar disorder (F31.9: Bipolar disorder, unspecified) Ordered: pantoprazole, 40 mg (more content not included)... Normal [facility] Comment on above: Result Comment: Elec tronically Signed By: Zenia ELLISON, Alex Kapoor.br\Date and Time Signed: 09/13/23 15:22 EDT CNPNon 08-14-2023 CNPN Telephone (ENDOMN) -------- INDU ST ([id number]) 1995 F Date Time Provider Department 08/14/23 KARINA CUMMINGS ENDOMN During your visit today, we recorded the following information about you: Twyla Salcedo MA 08/14/2023 11:09 AM Signed Received MRI results completed 08/02/2023, scanned to chart Twyla Salcedo Motor Vehicle Representative II Endocrinology AND Metabolism [place] [facility] F20 AND X20 Allergies As of [...] Status:Closed by TWYLA SALCEDO on 08/14/23 Normal [facility] CBC W Auto Differential pane l (Bld)on 07-20-2023 Basophils (Bld) [#/Vol] 0.03 10*3/uL [facility] Basophils/100 WBC (Bld) 0.3 % 0.0 - 2.0 % [facility] Eosinophils (Bld) [#/Vol] 0.00 10*3/uL [facility] Eosinophils/100 WBC (Bld) 0.0 % 0.0 - 6.0 % [facility] Erythrocyte distribution width (RBC) [Ratio] 14.5 % 11.5 - 14.5 % [facility] Hematocrit (Bld) [Volume fraction] 39.1 % 36.0 - 46.0 % [facility] Hemoglobin (Bld) [Mass/Vol] 13.5 g/dL 12.0 - 16.0 g/dL [facility] Immature granulocytes (Bld) [#/Vol] 0.03 10*3/uL [facility] Immature granulocytes/100 WBC (Bld) 0.3 % 0.0 - 0.9 % [facility] Comment on above: Immature Granulocyte Count (IG) includes promyelocytes, myelocytes and metamyelocytes but does not include bands. Percent differential counts (%) should be interpreted in the context of the absolute cell counts (cells/UL). Interpretation and review of laboratory results Abnormal [facility] Lymphocytes (Bld) [#/Vol] 0.98 10*3/uL Low [facility] Lymphocytes/100 WBC (Bld) 8.5 % 13.0 - 44.0 % [facility] MCH (RBC) [Entitic mass] 28.7 pg 26.0 - 34.0 pg [facility] MCHC (RBC) [Mass/Vol] 34.5 g/dL 32.0 - 36.0 g/dL [facility] MCV (RBC) [Entitic vol] 83 fL 80 - 100 fL [facility] Monocytes (Bld) [#/Vol] 0.13 10*3/uL [facility] Monocytes/100 WBC (Bld) 1.1 % 2.0 - 10.0 % [facility] Neutrophils (Bld) [#/Vol] 10.32 10*3/uL High [facility] Comment on above: Percent differential counts (%) should be interpreted in the context of the absolute cell counts (cells/uL). Neutrophils/100 WBC (Bld) 89.8 % 40.0 - 80.0 % [facility] Nucleated RBC/100 WBC (Bld) [Ratio] 0.0 % [facility] Platelets (Bld) [#/Vol] 290 10*3/uL [facility] RBC (Bld) [#/Vol] 4.71 10*6/uL [facility] WBC (Bld) [#/Vol] 11.5 10*3/uL High [facility] Basophils (Bld) [#/Vol] 0.03 x10*3/uL Normal 0.00-0.10 [facility] Comment on above: Performed By: #### 5 7021-8 #### JIMENA Mark ([id number]) [facility] ([facility]) [address] [place] [address] Basophils/100 WBC (Bld) 0.3 % Normal 0.0-2.0 [facility] Comment on above: Performed By: #### 5 7021-8 #### JIMENA Mark ([id number]) [facility] ([facility]) [address] [place] [address] Eosinophils (Bld) [#/Vol] 0.00 x10*3/uL Normal 0.00-0.70 [facility] Comment on above: Performed By: #### 5 7021-8 #### JIMENA Mark ([id number]) [facility] ([facility]) [address] [place] [address] Eosinophils/100 WBC (Bld) 0.0 % Normal 0.0-6.0 [facility] Comment on above: Performed By: #### 5 7021-8 #### JIMENA Mark ([id number]) [facility] ([facility]) [address] [place] [address] Erythrocyte distribution width (RBC) [Ratio] 14.5 % Normal 11.5-14.5 [facility] Comment on above: Performed By: #### 5 7021-8 #### JIMENA Mark ([id number]) [facility] ([facility]) [address] [place] [address] Hematocrit (Bld) [Volume fraction] 39.1 % Normal 36.0-46.0 [facility] Comment on above: Performed By: #### 5 7021-8 #### JIMENA Mark ([id number]) [facility] ([facility]) [address] [place] [address]62 Hemoglobin (Bld) [Mass/Vol] 13.5 g/dL Normal 12.0-16.0 [facility] Comment on above: Performed By: #### 5 7021-8 #### JIMENA Mark ([id number]) [facility] ([facility]) [address] [place] [address] Immature granulocytes (Bld) [#/Vol] 0.03 x10*3/uL Normal 0.00-0.70 [facility] Comment on above: Performed By: #### 5 7021-8 #### JIMENA Mark ([id number]) [facility] ([facility]) [address] [place] [address] Immature granulocytes/100 WBC (Bld) 0.3 % Normal 0.0-0.9 [facility] Comment on above: Result Comment: Yanet ture Granulocyte Count (IG) includes promyelocytes, myelocytes and metamyelocytes but does not include bands. Percent differential counts (%) should be interpreted in the context of the absolute cell counts (cells/UL). Performed By: #### 5 7021-8 #### JIMENA Mark ([id number]) [facility] ([facility]) [address] [place] [address]07 Lymphocytes (Bld) [#/Vol] 0.98 x10*3/uL Low 1.20-4.80 [facility] Comment on above: Performed By: #### 5 7021-8 #### JIMENA Mark ([id number]) [facility] ([facility]) [address] [place] [address] 07865 Lymphocytes/100 WBC (Bld) 8.5 % Normal 13.0-44.0 [facility] Comment on above: Performed By: #### 5 7021-8 #### JIMENA Mark ([id number]) [facility] ([facility]) [address] [place] [address] MCH (RBC) [Entitic mass] 28.7 pg Normal 26.0-34.0 [facility] Comment on above: Performed By: #### 5 7021-8 #### JIMENA Mark ([id number]) [facility] ([facility]) [address] [place] [address] MCHC (RBC) [Mass/Vol] 34.5 g/dL Normal 32.0-36.0 [facility] Comment on above: Performed By: #### 5 7021-8 #### JIMENA Mark ([id number]) [facility] ([facility]) [address] [place] [address] MCV (RBC) [Entitic vol] 83 fL Normal 80-100 [facility] Comment on above: Performed By: #### 5 7021-8 #### JIMENA Mark ([id number]) [facility] ([facility]) [address] [place] [address] Monocytes (Bld) [#/Vol] 0.13 x10*3/uL Normal 0.10-1.00 [facility] Comment on above: Performed By: #### 5 7021-8 #### JIMENA Mark ([id number]) [facility] ([facility]) [address] [place] [address] Monocytes/100 WBC (Bld) 1.1 % Normal 2.0-10.0 [facility] Comment on above: Performed By: #### 5 7021-8 #### JIMENA Mark ([id number]) [facility] ([facility]) [address] [place] [address] Neutrophils (Bld) [#/Vol] 10.32 x10*3/uL High 1.20-7.70 [facility] Comment on above: Result Comment: Perc ent differential counts (%) should be interpreted in the context of the absolute cell counts (cells/uL). Performed By: #### 5 7021-8 #### JIMENA Mark ([id number]) [facility] ([facility]) [address] [place] [address] 79920 Neutrophils/100 WBC (Bld) 89.8 % Normal 40.0-80.0 [facility] Comment on above: Performed By: #### 5 7021-8 #### JIMENA Mark ([id number]) [facility] ([facility]) [address] [place] [address] Nucleated RBC/100 WBC (Bld) [Ratio] 0.0 /100 WBCs Normal 0.0-0.0 [facility] Comment on above: Performed By: #### 5 7021-8 #### JIMENA Mark ([id number]) [facility] ([facility]) [address] [place] [address]6077 Platelets (Bld) [#/Vol] 290 x10*3/uL Normal 150-450 [facility] Comment on above: Performed By: #### 5 7021-8 #### JIMENA Mark ([id number]) [facility] ([facility]) [address] [place] [address] RBC (Bld) [#/Vol] 4.71 x10*6/uL Normal 4.00-5.20 [facility] Comment on above: Performed By: #### 5 7021-8 #### JIMENA Mark ([id number]) [facility] ([facility]) [address] [place] [address] WBC (Bld) [#/Vol] 11.5 x10*3/uL High 4.4-11.3 [facility] Comment on above: Performed By: #### 5 7021-8 #### JIMENA Mark ([id number]) [facility] ([facility]) [address] [place] [address] CHEST ABDOMEN PELVIS W IV CONTRASTon 07-20-2023 CT CHEST ABDOMEN PELVIS W IV CONTRAST Interpreted By: Mag Santiago, STUDY: CT CHEST ABDOMEN PELVIS W IV CONTRAST; 07/20/2023 5:39 pm INDICATION: Signs/Symptoms:Persisten t vomiting, epigastric pain in the chest.. COMPARISON: Chest x-ray 07/20/2023. ACCESSION NUMBER(S): [id number] ORDERING CLINICIAN: ABIODUN OCHOA TECHNIQUE: Axial CT [...] Mag Santiago 07/20/2023 6:51 PM Dictation workstation: [id number] [facility] CT Chest and Abdomen and Pel [...] Mag Santiago 07/20/2023 6:51 PM Dictation workstation: [id number] Interpreted By: Mag Santiago, STUDY: CT CHEST ABDOMEN PELVIS W IV CONTRAST; 07/20/2023 5:39 pm INDICATION: Signs/Symptoms:Persisten t vomiting, epigastric pain in the chest.. COMPARISON: Chest x-ray 07/20/2023. ACCESSION NUMBER(S): [id number] ORDERING CLINICIAN: ABIODUN OCHOA TECHNIQUE: Axial CT [...] chest.. COMPARISON: Chest x-ray 07/20/2023. ACCESSION NUMBER(S): [id number] ORDERING CLINICIAN: ABIODUN OCHOA TECHNIQUE: Axial CT [...] Mag Santiago 07/20/2023 6:51 PM Dictation workstation: [id number] [facility] Work Phone: Radiology Study observation (narrative) [facility] Work Phone: CT Chest and Abdomen and Pel vis W contrast IVOrdered By: Mag Santiago on 07-20-2023 [facility] Work Phone: Choriogonadotropin.beta subu niton 07-20-2023 HCG.beta subunit Qn m[IU]/mL Normal <5 [facility] Comment on above: Order Comment: Total HCG measurement is performed using the Jade Newman Access Immunoassay which detects intact HCG and free beta HCG subunit. This test is not indicated for use as a tumor marker. HCG testing is performed using a different test methodology at [facility] than other [facility]. Direct result comparison should only be made within the same method. Performed By: #### 2 1198-7 #### JIMENA Mark ([id number]) [facility] ([facility]) [address] [place], [place] [id number] Comprehensive metabolic 2000 panelon 07-20-2023 Albumin BCP dye [Mass/Vol] 4.7 g/dL 3.4 - 5.0 g/dL [facility] ALP [Catalytic activity/Vol] 47 U/L 33 - 110 U/L [facility] ALT With P-5'-P [Catalytic activity/Vol] 14 U/L 7 - 45 U/L [facility] Comment on above: Patients treated wit h Sulfasalazine may generate falsely decreased results for ALT. Anion gap [Moles/Vol] 18 mmol/L 10 - 2 0 mmol/L [facility] AST With P-5'-P [Catalytic activity/Vol] 15 U/L 9 - 39 U/L [facility] Bilirubin [Mass/Vol] 0.6 mg/dL 0.0 - 1 .2 mg/dL [facility] Calcium [Mass/Vol] 9.8 mg/dL 8.6 - 10. 3 mg/dL [facility] Chloride [Moles/Vol] 105 mmol/L 98 - 10 7 mmol/L [facility] CO2 [Moles/Vol] 19 mmol/L Low 21 - 32 mmol/L [facility] Creatinine [Mass/Vol] 0.77 mg/dL 0.50 - 1.05 mg/dL [facility] eGFR - PINF [facility] Comment on above: Calculations of lesli mated GFR are performed using the 2020 CKD-EPI Study Refit equation without the race variable for the IDMS-Traceable creatinine methods. https://jasn.asnjournals.org/content//ASN.2020 924357 Glucose [Mass/Vol] 147 mg/dL High 74 - 99 mg/dL [facility] Interpretation and review of laboratory results Abnormal [facility] Potassium [Moles/Vol] 3.8 mmol/L 3.5 - 5.3 mmol/L [facility] Protein [Mass/Vol] 7.3 g/dL 6.4 - 8.2 g/dL [facility] Sodium [Moles/Vol] 138 mmol/L 136 - 145 mmol/L [facility] Urea nitrogen [Mass/Vol] 15 mg/dL 6 - 23 mg/dL [facility] Albumin BCP dye [Mass/Vol] 4.7 g/dL Normal 3.4-5.0 [facility] Comment on above: Performed By: #### 2 4323-8 #### JIMENA Mark ([id number]) [facility] ([facility]) [address] [place] [address] ALP [Catalytic activity/Vol] 47 U/L Normal 33-110 [facility] Comment on above: Performed By: #### 2 4323-8 #### JIMENA Mark ([id number]) [facility] ([facility]) [address] [place] [address] ALT With P-5'-P [Catalytic activity/Vol] 14 U/L Normal 7-45 [facility] Comment on above: Result Comment: Edel ents treated with Sulfasalazine may generate falsely decreased results for ALT. Performed By: #### 2 4323-8 #### JIMENA Mark ([id number]) [facility] ([facility]) [address] [place] [address] Anion gap [Moles/Vol] 18 mmol/L Normal 10-20 [facility] Comment on above: Performed By: #### 2 4323-8 #### JIMENA Makr ([id number]) [facility] ([facility]) [address] [place] [address] 85846 AST With P-5'-P [Catalytic activity/Vol] 15 U/L Normal 9-39 [facility] Comment on above: Performed By: #### 2 4323-8 #### JIMENA Mark ([id number]) [facility] ([facility]) [address] [place] [address] 94402 Bilirubin [Mass/Vol] 0.6 mg/dL Normal 0.0-1.2 [facility] Comment on above: Performed By: #### 2 4323-8 #### JIMENA Mark ([id number]) [facility] ([facility]) [address] [place] [address] 31345 Calcium [Mass/Vol] 9.8 mg/dL Normal 8.6-10.3 [facility] Comment on above: Performed By: #### 2 432-8 #### JIMENA Mark ([id number]) [facility] ([facility]) [address] [place] [address] 68327 Chloride [Moles/Vol] 105 mmol/L Normal 98-107 [facility] Comment on above: Performed By: #### 2 4323-8 #### JIMENA Mark ([id number]) [facility] ([facility]) [address] [place] [address] 71464 CO2 [Moles/Vol] 19 mmol/L Low 21-32 [facility] Comment on above: Performed By: #### 2 4323-8 #### JIMENA Mark ([id number]) [facility] ([facility]) [address] [place] [address] 87457 Creatinine [Mass/Vol] 0.77 mg/dL Normal 0.50-1.05 [facility] Comment on above: Performed By: #### 2 4323-8 #### JIMENA Mark ([id number]) [facility] ([facility]) [address] [place] [address] 83982 GFR/1.73 sq M.predicted MDRD (S/P/Bld) [Vol rate/Area] mL/min/{1.73_m2} Normal >60 [facility] Comment on above: Result Comment: Calc ulations of estimated GFR are performed using the 2020 CKD-EPI Study Refit equation without the race variable for the IDMS-Traceable creatinine methods. https://jasn.asnjournals.org/content/early/ASN.2020 620987 Performed By: #### 2 4323-8 #### JIMENA Mark ([id number]) [facility] ([facility]) [address] [place] [address] 27597 Glucose [Mass/Vol] 147 mg/dL High 74-99 [facility] Comment on above: Performed By: #### 2 4323-8 #### JIMENA Mark ([id number]) [facility] ([facility]) [address] [place] [address] 81661 Potassium [Moles/Vol] 3.8 mmol/L Normal 3.5-5.3 [facility] Comment on above: Performed By: #### 2 4323-8 #### JIMENA Mark ([id number]) [facility] ([facility]) [address] [place] [address] 78561 Protein [Mass/Vol] 7.3 g/dL Normal 6.4-8.2 [facility] Comment on above: Performed By: #### 2 4323-8 #### JIMENA Mark ([id number]) [facility] ([facility]) [address] [place] [address] 47185 Sodium [Moles/Vol] 138 mmol/L Normal 136-145 [facility] Comment on above: Performed By: #### 2 4323-8 #### JIMENA Mark ([id number]) [facility] ([facility]) [address] [place] [address] 35277 Urea nitrogen [Mass/Vol] 15 mg/dL Normal 6-23 [facility] Comment on above: Performed By: #### 2 4323-8 #### JIMENA Mark ([id number]) [facility] ([facility]) [address] [place] [address] 13839 DRUG SCREEN,URINEon 07-20-19 24 Amphetamines Screen Ql (U) Negative Normal Presumptive Negative [facility] Comment on above: Order Comment: Drug screen results are presumptive and should not be used to assess compliance with prescribed medication. Contact the performing [facility] laboratory to add-on definitive confirmatory [...] By: #### Kobi RUG3 #### JIMENA Mark ([id number]) [facility] ([facility]) [address] [place] [address] 61396 Barbiturates Screen Ql (U) Negative Normal Presumptive Negative [facility] Comment on above: Order Comment: Drug screen results are presumptive and should not be used to assess compliance with prescribed medication. Contact the performing [facility] laboratory to add-on definitive confirmatory [...] By: #### D RUG3 #### JIMENA Mark ([id number]) [facility] ([facility]) [address] [place] [address] 34051 Benzodiazepines Ql (U) Negative Normal Presu mptive Negative [facility] Comment on above: Order Comment: Drug screen results are presumptive and should not be used to assess compliance with prescribed medication. Contact the performing [facility] laboratory to add-on definitive confirmatory [...] By: #### Kobi RUG3 #### JIMENA Mark ([id number]) [facility] ([facility]) [address] [place] [address] 95070 Benzoylecgonine Screen Ql (U) Negative Normal Presumptive Negative [facility] Comment on above: Order Comment: Drug screen results are presumptive and should not be used to assess compliance with prescribed medication. Contact the performing [facility] laboratory to add-on definitive confirmatory [...] By: #### D RUG3 #### JIMENA Mark ([id number]) [facility] ([facility]) [address] [place] [address] 23350 Cannabinoids Screen Ql (U) Positive Abnormal Presumptive Negative [facility] Comment on above: Order Comment: Drug screen results are presumptive and should not be used to assess compliance with prescribed medication. Contact the performing [facility] laboratory to add-on definitive confirmatory [...] By: #### D RUG3 #### JIMENA Mark ([id number]) [facility] ([facility]) [address] [place] [address] 70893 fentaNYL+Norfentanyl Screen Ql (U) Negative Normal Presumptive Negative [facility] Comment on above: Order Comment: Drug screen results are presumptive and should not be used to assess compliance with prescribed medication. Contact the performing [facility] laboratory to add-on definitive confirmatory [...] By: #### D RUG3 #### JIMENA Mark ([id number]) [facility] ([facility]) [address] [place] [address] 31618 Methadone Screen Ql (U) Negative Normal Pres umptive Negative [facility] Comment on above: Order Comment: Drug screen results are presumptive and should not be used to assess compliance with prescribed medication. Contact the performing [facility] laboratory to add-on definitive confirmatory [...] CUTO FF LEVEL: 150 NG/ML The metabolite N-waqeq-vgktsehpnhspdf (LAAM) is not detected by this method in concentrations that would be found in the urine of patients on LAAM therapy. Performed By: #### D RUG3 #### JIMENA Mark ([id number]) [facility] ([facility]) [address] [place] [address] 58369 Opiates Screen Ql (U) Negative Normal Presum ptive Negative [facility] Comment on above: Order Comment: Drug screen results are presumptive and should not be used to assess compliance with prescribed medication. Contact the performing [facility] laboratory to add-on definitive confirmatory [...] By: #### D RUG3 #### JIMENA Mark ([id number]) [facility] ([facility]) [address] [place] [address] 75922 oxyCODONE+oxyMORphone Screen Ql (U) Negative Normal Presumptive Negative [facility] Comment on above: Order Comment: Drug screen results are presumptive and should not be used to assess compliance with prescribed medication. Contact the performing [facility] laboratory to add-on definitive confirmatory [...] By: #### Kobi BRIONES3 #### JIMENA Mark ([id number]) [facility] ([facility]) [address] [place] [address] 23236 Phencyclidine Ql (U) Negative Normal Presump tive Negative [facility] Comment on above: Order Comment: Drug screen results are presumptive and should not be used to assess compliance with prescribed medication. Contact the performing [facility] laboratory to add-on definitive confirmatory [...] By: #### D RUG3 #### JIMENA Mark ([id number]) [facility] ([facility]) [address] [place] [address] 69410 Drug Screen, Urineon 024 Amphetamines Screen Ql (U) Negative Presumptive Negative [facility] Comment on above: CUTOFF LEVEL: 500 NG /ML Cross-reactivity has been reported with high concentrations of the following drugs: buproprion, chloroquine, chlorpromazine, ephedrine, mephentermine, fenfluramine, phentermine, phenylpropanolamine, pseudoephedrine, and propranolol. Barbiturates Screen Ql (U) Negative Presumptive Negative [facility] Comment on above: CUTOFF LEVEL: 200 NG /ML Benzodiazepines Ql (U) Negative Presu mptive Negative [facility] Comment on above: CUTOFF LEVEL: 200 NG /ML Benzoylecgonine Screen Ql (U) Negative Presumptive Negative [facility] Comment on above: CUTOFF LEVEL: 150 NG /ML Cannabinoids Screen Ql (U) Positive Abnormal Presumptive Negative [facility] Comment on above: CUTOFF LEVEL: 50 NG/ ML fentaNYL+Norfentanyl Screen Ql (U) Negative Presumptive Negative [facility] Comment on above: CUTOFF LEVEL: 5 NG/M L Interpretation and review of laboratory results Abnormal [facility] Methadone Screen Ql (U) Negative Pres umptive Negative [facility] Comment on above: CUTOFF LEVEL: 150 NG /ML The metabolite C-lhpgk-pbkhuojgpasdbp (LAAM) is not detected by this method in concentrations that would be found in the urine of patients on LAAM therapy. Opiates Screen Ql (U) Negative Presum ptive Negative [facility] Comment on above: CUTOFF LEVEL: 300 NG /ML The opiate screen does not detect fentanyl, meperidine, or tramadol. Oxycodone is not consistently detected (refer to Oxycodone Screen, Urine result). oxyCODONE+oxyMORphone Screen Ql (U) Negative Presumptive Negative [facility] Comment on above: CUTOFF LEVEL: 100 NG /ML This test will accurately detect both oxycodone and oxymorphone. Phencyclidine Ql (U) Negative Presump tive Negative [facility] Comment on above: CUTOFF LEVEL: 25 NG/ ML Cross-reactivity has been reported with dextromethorphan. Drug screen results are presumptive and should not be used to assess compliance with prescribed medication. Contact the performing [facility] laboratory to add-on definitive confirmatory [...] be directed to the laboratory medical directors. [facility] ECG 12-LEADon 07-20-2023 ECG 12-LEAD Ventricular Rate 68 Atrial Rate 67 P-R Interval 110 QRS Duration 126 Q-T Interval 419 QTC Calculation(Bazett) 446 P Midland 82 R Midland 77 T Midland 67 QRS Count 11 Q Onset 249 T Offset 459 QTC Fredericia 437 Diagnosis Sinus rhythm Borderline short SD interval Nonspecific intraventricular conduction delay ST elev, probable normal early repol pattern See ED provider note for full interpretation and clinical correlation Confirmed by Lynsey Luna ([id number]) on 07/28/2023 12:23:14 PM Normal [facility] HCG.beta subunit Qnon 2023 Interpretation and review of laboratory results Normal [facility] Total HCG measuremen t is performed using the [employer] Access Immunoassay which detects intact HCG and free beta HCG subunit. This test is not indicated for use as a tumor marker. HCG testing is performed using a different test methodology at [facility] than other [facility]. Direct result comparison should only be made within the same method. [facility] Human Chorionic Gonadotropin , Serum Quantitativeon 07-20-2023 HCG.beta subunit Qn NINF [facility] Lactateon 07-20-2023 Lactate [Moles/Vol] 1.4 mmol/L 0.4 - 2. 0 mmol/L [facility] Lactate [Moles/Vol] 1.4 mmol/L Normal 0.4-2.0 [facility] Comment on above: Order Comment: Venip uncture immediately after or during the administration of Metamizole may lead to falsely low results. Testing should be performed immediately prior to Metamizole dosing. Performed By: #### 2 524-7 #### JIMENA Mark ([id number]) [facility] ([facility]) [address] [place] [address] Lactate [Moles/Vol] 2.2 mmol/L High 0.4 - 2. 0 mmol/L [facility] Lactate [Moles/Vol] 2.2 mmol/L High 0.4-2.0 [facility] Comment on above: Order Comment: Venip uncture immediately after or during the administration of Metamizole may lead to falsely low results. Testing should be performed immediately prior to Metamizole dosing. Performed By: #### 2 524-7 #### JIMENA Mark ([id number]) [facility] ([facility]) [address] [place] [address] 34946 Lactate [Moles/Vol]on 2023 Interpretation and review of laboratory results Normal [facility] Venipuncture immedia tely after or during the administration of Metamizole may lead to falsely low results. Testing should be performed immediately prior to Metamizole dosing. [facility] Interpretation and review of laboratory results Abnormal [facility] Venipuncture immedia tely after or during the administration of Metamizole may lead to falsely low results. Testing should be performed immediately prior to Metamizole dosing. [facility] Lipaseon 07-20-2023 Lipase [Catalytic activity/Vol] 10 U/L 9 - 82 U/L [facility] Lipase [Catalytic activity/V ol]on 07-20-2023 Interpretation and review of laboratory results Normal [facility] Venipuncture immedia tely after or during the administration of Metamizole may lead to falsely low results. Testing should be performed immediately prior to Metamizole dosing. [facility] Triacylglycerol lipaseon Lipase [Catalytic activity/Vol] 10 U/L Normal 9-82 [facility] Comment on above: Order Comment: Venip uncture immediately after or during the administration of Metamizole may lead to falsely low results. Testing should be performed immediately prior to Metamizole dosing. Performed By: #### 3 040-3 #### JIMENA Mark ([id number]) [facility] ([facility]) [address] [place] [address] 36491 Tropinin I.cardiac panel Hig h sensitivity methodon 07-20-2023 Interpretation and review of laboratory results Normal [facility] Less than 99th percentile of normal [...] performed using a different testing methodology at [facility] than at other [facility]. Direct result comparisons should only be made within the same method. [facility] Troponin I, High Sensitivity on 07-20-2023 Tropinin I.cardiac panel High sensitivity method ng/L 0 - 13 ng/L [facility] Troponin I.cardiac panelon 0 07-20-2023 Tropinin I.cardiac panel High sensitivity method <3 Normal 0-13 [facility] Comment on above: Order Comment: Venip uncture immediately after or during the administration of Metamizole may lead to falsely low results. Testing should be performed immediately prior to Metamizole dosing. Performed By: #### 2 524-7 #### JIMENA Mark ([id number]) [facility] ([facility]) [address] [place] [address] Urinalysis complete W Reflex Culture panel (U)on 07-20-2023 Appearance (U) Hazy Abnormal Clear [facility] Bilirubin (U) [Mass/Vol] Negative NEGATIVE [facility] Color (U) Yellow Straw, Yellow [facility] Epithelial cells.squamous Auto (Urine sed) [#/Area] 1-9 (SPARSE) Reference range not established. /HPF [facility] Glucose Auto test strip (U) [Mass/Vol] Negative NEGATIVE mg/dL [facility] Interpretation and review of laboratory results Abnormal [facility] Ketones (U) [Mass/Vol] 80 (2+) Abnormal NEGAT JAMES mg/dL [facility] Leukocyte esterase Auto test strip Ql (U) Negative NEGATIVE [facility] Mucus Auto (Urine sed) [#/Area] 4+ Reference range not established. /LPF [facility] Nitrite Auto test strip Ql (U) Negative NEGATIVE [facility] pH (U) 9.0 [pH] Abnormal 5.0, 5.5, 6.0, 6.5, 7.0, 7.5, 8.0 [facility] Protein (U) [Mass/Vol] >=500 (3+) Abnormal NEGAT JAMES mg/dL [facility] RBC (U) [#/Vol] Negative NEGATIVE [facility] RBC Auto (Urine sed) [#/Area] 1-2 NONE, 1-2, 3-5 /HPF [facility] Specific gravity (U) [Rel density] 1.025 1.005 - 1.035 [facility] Urobilinogen (U) [Mass/Vol] mg/dL NINF - 2.0 mg/dL [facility] WBC Auto (Urine sed) [#/Area] 1-5 1-5, NONE /HPF [facility] Yeast.budding Computer assisted (U) [#/Area] PRESENT Abnormal NONE /HPF [facility] Appearance (U) Hazy Normal Clear [facility] Comment on above: Performed By: #### 5 8077-9 #### JIMENA Mark ([id number]) [facility] ([facility]) [address] [place] [address] 90926 Bilirubin (U) [Mass/Vol] Negative Normal NEGATIVE [facility] Comment on above: Performed By: #### 5 8077-9 #### JIMENA Mark ([id number]) [facility] ([facility]) [address] [place] [address] 91309 Color (U) Yellow Normal Straw, Yellow [facility] Comment on above: Performed By: #### 5 8077-9 #### JIMENA Mark ([id number]) [facility] ([facility]) [address] [place] [address] 95284 Epithelial cells.squamous Auto (Urine sed) [#/Area] 1-9 (SPARSE) Normal Reference range not established. [facility] Comment on above: Performed By: #### 5 8077-9 #### JIMENA Mark ([id number]) [facility] ([facility]) [address] [place] [address] 70695 Glucose Auto test strip (U) [Mass/Vol] Negative Normal NEGATIVE [facility] Comment on above: Performed By: #### 5 8077-9 #### JIMENA Mark ([id number]) [facility] ([facility]) [address] [place] [address] 04845 Ketones (U) [Mass/Vol] 80 (2+) Abnormal NEGATIVE Un [facility] Comment on above: Performed By: #### 5 8077-9 #### JIMENA Mark ([id number]) [facility] ([facility]) [address] [place] [address] Leukocyte esterase Auto test strip Ql (U) Negative Normal NEGATIVE [facility] Comment on above: Performed By: #### 5 8077-9 #### JIMENA Mark ([id number]) [facility] ([facility]) [address] [place] [address] Mucus Auto (Urine sed) [#/Area] 4+ /LPF Normal Reference range not established. [facility] Comment on above: Performed By: #### 5 8077-9 #### JIMENA Mark ([id number]) [facility] ([facility]) [address] [place] [address] 22474 Nitrite Auto test strip Ql (U) Negative Normal NEGATIVE [facility] Comment on above: Performed By: #### 5 8077-9 #### JIMENA Mark ([id number]) [facility] ([facility]) [address] [place] [address] 61031 pH (U) 9.0 [pH] Normal 5.0, 5.5, 6.0, 6.5, 7.0, 7.5, 8.0 [facility] Comment on above: Performed By: #### 5 8077-9 #### JIMENA Mark ([id number]) [facility] ([facility]) [address] [place] [address] 29772 Protein (U) [Mass/Vol] >=500 (3+) Normal NEGATIVE [facility] Comment on above: Performed By: #### 5 8077-9 #### JIMENA Mark ([id number]) [facility] ([facility]) [address] [place] [address] RBC (U) [#/Vol] Negative Normal NEGATIVE [facility] Comment on above: Performed By: #### 5 8077-9 #### JIMENA Mark ([id number]) [facility] ([facility]) [address] [place] [address] RBC Auto (Urine sed) [#/Area] 1-2 Normal NONE, 1-2, 3-5 [facility] Comment on above: Performed By: #### 5 8077-9 #### JIMENA Mark ([id number]) [facility] ([facility]) [address] [place] [address] Specific gravity (U) [Rel density] 1.025 Normal 1.005-1.035 [facility] Comment on above: Performed By: #### 5 8077-9 #### JIMENA Mark ([id number]) [facility] ([facility]) [address] [place] [address] Urobilinogen (U) [Mass/Vol] mg/dL Normal <2.0 [facility] Comment on above: Performed By: #### 5 8077-9 #### JIMENA Mark ([id number]) [facility] ([facility]) [address] [place] [address] WBC Auto (Urine sed) [#/Area] 1-5 Normal 1-5, NONE [facility] Comment on above: Performed By: #### 5 8077-9 #### JIMENA Mark ([id number]) [facility] ([facility]) [address] [place] [address] Yeast.budding Computer assisted (U) [#/Area] PRESENT Abnormal NONE [facility] Comment on above: Performed By: #### 5 8077-9 #### JIMENA Mark ([id number]) [facility] ([facility]) [address] [place] [address] XR CHEST 1 VIEWon 07-20-2023 XR CHEST 1 VIEW Interpreted By: Salina Hall, STUDY: XR CHEST 1 VIEW; 07/20/2023 4:05 pm INDICATION: Signs/Symptoms:cp. COMPARISON: None. ACCESSION NUMBER(S): [id number] ORDERING CLINICIAN: ABIODUN OCHOA FINDINGS: Heart is normal in size. There is no consolidation or pleural fluid. The mediastinum and bones are unremarkable. There are bilateral nipple shadows. COMPARISON OF FINDING: IMPRESSION: No acute cardiopulmonary disease. MACRO: none Signed by: Salina Stanton 07/20/2023 4:17 PM Dictation workstation: [address] XR Chest Single viewon 07-19 No acute cardiopulmo nary disease. MACRO: none Signed by: Salina Stanton 07/20/2023 4:17 PM Dictation workstation: [id number] [facility] Interpreted By: Salina Hall, STUDY: XR CHEST 1 VIEW; 07/20/2023 4:05 pm INDICATION: Signs/Symptoms:cp. COMPARISON: None. ACCESSION NUMBER(S): [id number] ORDERING CLINICIAN: ABIODUN OCHOA FINDINGS: Heart is normal in size. There is no consolidation or pleural fluid. The mediastinum and bones are unremarkable. There are bilateral nipple shadows. COMPARISON OF FINDING: [facility] Salina Stanton MD - 07/20/2023 Interpreted By: Salina Stanton, STUDY: XR CHEST 1 VIEW; 07/20/2023 4:05 pm INDICATION: Signs/Symptoms:cp. COMPARISON: None. ACCESSION NUMBER(S): [id number] ORDERING CLINICIAN: ABIODUN OCHOA FINDINGS: Heart is normal in size. There is no consolidation or pleural fluid. The mediastinum and bones are unremarkable. There are bilateral nipple shadows. COMPARISON OF FINDING: IMPRESSION: No acute cardiopulmonary disease. MACRO: none Signed by: Salina Stanton 07/20/2023 4:17 PM Dictation workstation: [address] Work Phone: Radiology Study observation (narrative) [facility] Work Phone: XR Chest Single viewOrdered By: Salina Stanton on 07-20-2023 [facility] Work Phone: Cytology Cervical or vaginal smear or scraping studyon 03-19-2023 [facility] XR HYSTEROSALPINGOGRAMon XR HYSTEROSALPINGOGRAM * * *Final [...] nondilated tubes. No spillage. IMPRESSION: Please see DISBURSEMENT CLERK report for assessment of real-time findings. Sociocultural Anthropology Professor: ANTONIETA Transcribe Date/Time: Jan 20 2021 1:37P Dictated by : DAYANNA LEROY MD This examination was interpreted and the report reviewed and electronically signed by: DAYANNA LEROY MD on Jan 20 2021 1:45PM EST [id number] Normal [facility] URon 03-22-2020 , QUAL Negative Normal NEGATIVE [facility] [facility] Comment on above: Performed By: #### P REGU #### [facility] [address] [place] [address] Juany Mccarthy [facility]19 [facility]on [facility]-02 Covid-19 PCR DETECTED Abnormal NOT DETECTED [facility] Comment on above: Result Comment: This test is not yet approved or cleared by the [place] FDA. When there are no FDA-approved or cleared tests available, and other criteria are met, FDA can make tests available under an emergency access mechanism called an Emergency Use Authorization (EUA). The EUA for this test is supported by the [employer] Operator of Health and Human Service's (HHS's) declaration [...] used). Performed By: #### C VDTBH #### [facility] [address] [id number] Juany Mccarthy EUA Statement SEE BELOW Normal [facility] Comment on above: Result Comment: This test is not yet approved or cleared by the [place] FDA. When there are no FDA-approved or cleared tests available, and other criteria are met, FDA can make tests available under an emergency access mechanism called an Emergency Use Authorization (EUA). The EUA for this test is supported by the [place] of Health and Human Service?s (HHS?s) declaration [...] SARS-CoV-2. Performed By: #### C VDTB #### [facility] [address] [place], [place] [address] Juany Mccarthy Vital Signs Date Time Vital Sign Value Performing Clinician Facility 12-03-2023 08:43-0400 Body height 167.6 cm [employer] Work Phone: [facility] 12-03-2023 08:43-0400 Body mass index (BMI) [Ratio] 17.59 kg/m2 [employer] DO Work Phone: [facility] 12-03-2023 08:43-0400 Body weight 49.44 kg [employer] Work Phone: [facility] 12-03-2023 08:43-0400 Diastolic blood pressure 68 mm[Hg] [employer] Work Phone: [facility] 12-03-2023 08:43-0400 Systolic blood pressure 102 mm[Hg] Uriel Halina DO Work Phone: [facility] 10-15-2023 10:05-0400 Blood Pressure Location Mohamad Mouchli [facility] 10-15-2023 10:05-0400 Diastolic blood pressure 74 mm[Hg] Mohamad Mouchli [facility] 10-15-2023 10:05-0400 Heart rate 66 /min Mohamad Mouchli [facility] 10-15-2023 10:05-0400 Mean blood pressure 87 mm[Hg] Mohamad Mouchli [facility] 10-15-2023 10:05-0400 Respiratory rate 19 /min Mohamad Mouchli [facility] 10-15-2023 10:05-0400 SaO2% (BldA) [Mass fraction] 97 % Mohamad Mouchli [facility] 10-15-2023 10:05-0400 Systolic blood pressure 112 mm[Hg] Mohamad Mouchli [facility] 10-15-2023 09:55-0400 Blood Pressure Location Mohamad Mouchli [facility] 10-15-2023 09:55-0400 Diastolic blood pressure 57 mm[Hg] Mohamad Mouchli [facility] 10-15-2023 09:55-0400 Heart rate 57 /min Mohamad Mouchli [facility] 10-15-2023 09:55-0400 Mean blood pressure 71 mm[Hg] Mohamad Mouchli [facility] 10-15-2023 09:55-0400 Respiratory rate 19 /min Mohamad Mouchli [facility] 10-15-2023 09:55-0400 SaO2% (BldA) [Mass fraction] 100 % Mohamad Mouchli [facility] 10-15-2023 09:55-0400 Systolic blood pressure 100 mm[Hg] Mohamad Mouchli [facility] 10-15-2023 09:50-0400 Blood Pressure Location Mohamad Mouchli [facility] 10-15-2023 09:50-0400 Diastolic blood pressure 73 mm[Hg] Mohamad Mouchli [facility] 10-15-2023 09:50-0400 Heart rate 90 /min Mohamad Mouchli [facility] 10-15-2023 09:50-0400 Mean blood pressure 89 mm[Hg] Mohamad Mouchli [facility] 10-15-2023 09:50-0400 Respiratory rate 13 /min Mohamad Mouchli [facility] 10-15-2023 09:50-0400 SaO2% (BldA) [Mass fraction] 100 % Mohamad Mouchli [facility] 10-15-2023 09:50-0400 Systolic blood pressure 122 mm[Hg] Mohamad Mouchli [facility] 10-15-2023 09:41-0400 Body temperature 98.06 [degF] Mohamad Mouchli [facility] 10-15-2023 09:30-0400 Respiratory rate 10 /min Mohamad Mouchli [facility] 10-15-2023 09:25-0400 Respiratory rate 10 /min Mohamad Mouchli [facility] 10-15-2023 09:24-0400 Respiratory rate 10 /min Mohamad Mouchli [facility] 10-15-2023 07:13-0400 Body temperature 98.42 [degF] Mohamad Mouchli [facility] 09-13-2023 14:52-0400 Blood Pressure Location Mohamad Mouchli [facility] 09-13-2023 14:52-0400 Diastolic blood pressure 82 mm[Hg] Mohamad Mouchli [facility] 09-13-2023 14:52-0400 Heart rate 78 /min Mohamad Mouchli [facility] 09-13-2023 14:52-0400 Respiratory rate 16 /min Mohamad Mouchli [facility] 09-13-2023 14:52-0400 Systolic blood pressure 110 mm[Hg] Mohamad Mouchli [facility] 07-20-2023 18:58-0400 Body temperature 98.49 [degF] Gwen Danielson MD Work Phone: [facility] 07-20-2023 18:58-0400 Diastolic blood pressure 83 mm[Hg] Gwen Danielson MD Work Phone: [facility] 07-20-2023 18:58-0400 Heart rate 52 /min Gwen Danielson MD Work Phone: [facility] 07-20-2023 18:58-0400 Respiratory rate 18 /min Gwen Danielson MD Work Phone: [facility] 07-20-2023 18:58-0400 SaO2% (BldA) [Mass fraction] 98 % Gwen Danielson MD Work Phone: [facility] 07-20-2023 18:58-0400 Systolic blood pressure 135 mm[Hg] Gwen Danielson MD Work Phone: [facility] 07-20-2023 13:40-0400 Body height 167.6 cm Gwen Danielson MD Work Phone: [facility] 07-20-2023 13:40-0400 Body mass index (BMI) [Ratio] 19.05 kg/m2 Gwen Danielson MD Work Phone: [facility] 07-20-2023 13:40-0400 Body weight 53.52 kg Gwen Danielson MD Work Phone: [facility] Encounters Encounter Date Encounter Type Care Provider Facility Start: 03-14-2024 End: 03-14-2024 Clinisync Result Encounter Generic External Data Provider [facility] Unsolicited Start: 03-14-2024 End: 03-14-2024 Clinisync Result Encounter Generic External Data Provider [facility] Unsolicited Start: 03-12-2024 End: 03-12-2024 Phys/qhp telephone evaluation 5-10 min Uriel Meade DO Work Phone: [facility] Comment on above: Fallopian tube disor rose marie; Anovulation; Female infertility Start: 02-18-2024 End: 02-18-2024 ambulatory Carolyne Edmonds Facility:[facility] Start: 02-18-2024 End: 02-18-2024 Patient encounter procedure Carolyne Edmonds [facility] Start: 02-18-2024 End: 02-18-2024 Clinisync Result Encounter Carolyne Edmonds MD Work Phone: [facility] Unsolicited Start: 02-18-2024 End: 02-18-2024 Clinisync Result Encounter Carolyne Edmonds MD Work Phone: [facility] Unsolicited Start: 02-15-2024 End: 02-15-2024 Office outpatient visit 15 minutes Carol Magaña PA Work Phone: [facility] Comment on above: Myalgia (Primary Dx) Start: 02-15-2024 End: 02-15-2024 ambulatory CAROL MAGAÑA Not Available Start: 02-13-2024 End: 02-13-2024 Clinisync Result Encounter Generic External Data Provider [facility] Unsolicited Start: 02-13-2024 End: 02-13-2024 Clinisync Result Encounter Generic External Data Provider [facility] Unsolicited Start: 01-16-2024 End: 01-16-2024 Phys/qhp telephone evaluation 5-10 min Uriel Halina DO Work Phone: [facility] Comment on above: Female infertility; Vaginal odor Start: 12-24-2023 End: 12-24-2023 Clinisync Result Encounter Generic External Data Provider [facility] Unsolicited Start: 12-24-2023 End: 12-24-2023 Clinisync Result Encounter Generic External Data Provider [facility] Unsolicited Start: 12-03-2023 End: 12-03-2023 Bamboo flowsheet Uriel Halina DO Work Phone: [facility] Start: 12-03-2023 End: 12-03-2023 Bamboo flowsheet Uriel Halina DO Work Phone: [facility] Start: 12-03-2023 End: 12-03-2023 ambulatory URIEL HALINA Not Available Start: 12-03-2023 End: 12-03-2023 Office outpatient visit 15 minutes Uriel Halina DO Work Phone: [facility] Comment on above: Fallopian tube disor rose marie (Primary Dx) Start: 11-08-2023 End: 11-10-2023 Clinisync Result Encounter Uriel Halina DO Work Phone: [facility] Unsolicited Start: 11-08-2023 End: 11-10-2023 Clinisync Result Encounter Uriel Meade DO Work Phone: [facility] Unsolicited Start: 10-15-2023 End: 10-15-2023 ambulatory Alex Knutson Facility:[facility] Start: 10-15-2023 End: 10-15-2023 Patient encounter procedure Alxe Knutson [facility] Start: 09-13-2023 End: 09-13-2023 ambulatory Alex Knutson Facility:[facility] Start: 09-13-2023 End: 09-13-2023 Patient encounter procedure Alex Knutson [facility] Start: 2023 ambulatory Alex Knutson Facilit y:[facility] Start: 08-23-2023 End: 08-23-2023 ambulatory CAROLYNE EDMONDS Not Available Start: 08-14-2023 Telephone encounter Karina Hand MD Work Phone: Endocrinology Comment on above: Results Start: 07-26-2023 End: 07-26-2023 ambulatory CAROLYNE EDMONDS Not Available Start: 07-20-2023 End: 07-20-2023 Emergency department patient visit Gwen Danielson MD Work Phone: [facility] Comment on above: Nausea and vomiting, unspecified vomiting type (Primary Dx); Gastritis, presence of bleeding unspecified, unspecified chronicity, unspecified gastritis type Start: 06-13-2023 End: 06-13-2023 [facility] Health Karina Cummings MD Work Phone: Endocrinology Comment on above: Prolactinoma (HCC) ( Primary Dx); 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HCC); Elevated prolactin level Start: 05-24-2023 End: 05-24-2023 ambulatory CAROLYNE EDMONDS Not Available Start: 03-19-2023 End: 03-19-2023 ambulatory URIEL MEADE Not Available Start: 03-19-2023 Patient encounter procedure Uriel Palomareso DO Work Phone: [facility] Start: 02-22-2023 End: 02-22-2023 ambulatory CAROLYNE EDMONDS Not Available Start: 03-22-2020 End: 03-22-2020 Patient encounter procedure YASMIN MARTINEZ Facility:[facility] Start: 03-03-2020 Encounter for preprocedural laboratory examination YASMIN MARTINEZ [facility] Start: 02-25-2020 Encounter for other preprocedural examination YASMIN MARTINEZ [facility] Start: 02-23-2020 End: 02-23-2020 Patient encounter procedure YASMIN MARTINEZ Facility:[facility] Start: 02-20-2020 End: 02-20-2020 Patient encounter procedure YASMIN MARTINEZ Facility:[facility] Start: 02-16-2020 End: 02-17-2020 Patient encounter procedure YASMIN MARTINEZ Facility:[facility] Encounter for other preprocedural examination YASMIN MARTINEZ [facility] Encounter for preprocedural laboratory examination YASMIN MARTINEZ [facility] Procedures Date Procedure Procedure Detail Performing Clinician Start: 03-14-2024 MLR HEMOGLOBIN A1C Generic External Data Provider Start: 02-18-2024 [facility] CBC W/ AUTO DIFF Carolyne Edmonds MD Work Phone: Start: 02-13-2024 ALL THYROID STIM HORMONE Generic Externa l Data Provider Start: 02-13-2024 [facility] PREG QUANT HCG Generic External Data Provider Start: 12-24-2023 [facility] PREG QUANT HCG Uriel Halina DO Work Phone: Start: 11-08-2023 ALL PROGESTERONE Generic External Data Provider Start: 10-15-2023 Colonoscopy Alex Knutson Start: 10-15-2023 Esophagogastroduodenoscopy Alex rich Start: 07-20-2023 CT CHEST ABDOMEN PELVIS W IV CONTRAST GWEN DANIELSON Start: 07-20-2023 Lactate [Moles/volume] in Serum or Plasma GWEN ISAURO Start: 07-20-2023 XR CHEST 1 VIEW GWEN DANIELSON Start: 07-20-2023 DRUG SCREEN,URINE GWEN DANIELSON Start: 07-20-2023 EXTRA URINE DORAN TUBE [facility] Start: 07-20-2023 URINALYSIS MICROSCOPIC WITH REFLEX CULTURE [facility] Start: 07-20-2023 URINALYSIS WITH REFLEX CULTURE AND MICROSCOPIC [facility] Start: 07-20-2023 Ct thorax w/contrast material Abiodun sarabia PA-C Work Phone: Start: 07-20-2023 CBC W Auto Differential panel - Blood [facility] Start: 07-20-2023 Comprehensive metabolic 2000 panel - Serum or Plasma [facility] Start: 07-20-2023 HUMAN CHORIONIC GONADOTROPIN, SERUM QUANTITATIVE [facility] Start: 07-20-2023 Lactate [Moles/volume] in Serum or Plasma [facility] Start: 07-20-2023 Lipase [Enzymatic activity/volume] in Serum or Plasma [facility] Start: 07-20-2023 TROPONIN I, HIGH SENSITIVITY [facility] Start: 07-20-2023 ECG 12-LEAD [facility] Start: 07-20-2023 INSERT PERIPHERAL IV [facility] Start: 07-20-2023 Assay of lactate Abiodun [...] Phone: Start: 07-20-2023 Comprehensive metabolic panel Abiodun saarbia PA-C Work Phone: Start: 07-20-2023 Ecg routine ecg w/least 12 lds trcg only w/o i&r Abiodun Ochoa PA-C Work Phone: Start: 03-19-2023 Cytp cerv/vag auto thin layer prep mnl screen Uriel Meade DO Work Phone: Tonsillectomy and adenoidectomy Carolyne Edmonds Plan of Treatment Date Care Activity Detail Author Start: 2044 Zoster Vaccines (1 of 2) Zoste r Vaccines (1 of 2) [facility] Start: 09-24-2024 End: 09-24-2024 Patient encounter procedure 09/24/2024 3:00 PM EDT Office Visit [facility] [address] [place] [phone] Uriel Meade, DO [address] [place], [place] [id number] [facility] Start: 03-26-2024 End: 03-26-2024 Patient encounter procedure 03/26/2024 1:00 PM EST Office Visit [facility] [address] [place] [phone] Uriel Meade, DO [address] [place] [address] [facility] Start: 03-24-2024 End: 03-24-2024 Patient encounter procedure 03/24/2024 4:00 PM EST Office Visit [facility] [address] [place] [phone] Uriel Meade, DO [address] [place] [address] [facility] Start: 02-15-2024 End: 02-15-2024 Telemedicine consultation with patient 02/15/2024 10:00 AM EST Telemedicine [facility] [address] [place] [phone] Carol Magaña PA [address] [place] [address] [facility] Start: 11-22-2023 End: 11-22-2023 Patient encounter procedure 11/22/2023 4:00 PM EDT Office Visit DEION LINDSAY [address] [place] [phone] Carolyne Edmonds MD [address] [place] [address] [facility] Start: 11-04-2023 Influenza vaccination [facility] Start: 07-11-2023 End: 10-10-2023 Corticotropin [Mass/volume] in Plasma ACTH BLD Lab Routine 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HCC) Expected: 07/11/2023, Expires: 10/10/2023 [facility] Comment on above: Expected: 07/11/2023 , Expires: 10/10/2023 Start: 07-11-2023 End: 10-10-2023 Cortisol [Mass/volume] in Serum or Plasma CORTISOL, SERUM Lab Routine 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HCC) Expected: 07/11/2023, Expires: 10/10/2023 [facility] Comment on above: Expected: 07/11/2023 , Expires: 10/10/2023 Start: 07-11-2023 End: 10-10-2023 Estradiol (E2) [Mass/volume] in Serum or Plasma ESTRADIOL-17B BLD Lab Routine 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HCC) Expected: 07/11/2023, Expires: 10/10/2023 [facility] Comment on above: Expected: 07/11/2023 , Expires: 10/10/2023 Start: 07-11-2023 End: 10-10-2023 Follitropin [Units/volume] in Serum or Plasma FOLLICLE STIMULATING HORMONE Lab Routine 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HCC) Expected: 07/11/2023, Expires: 10/10/2023 [facility] Comment on above: Expected: 07/11/2023 , Expires: 10/10/2023 Start: 07-11-2023 End: 10-10-2023 INSULIN LIK GR FAC I INSULIN LIK GR FAC I Lab Routine 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HCC) Expected: 07/11/2023, Expires: 10/10/2023 [facility] Comment on above: Expected: 07/11/2023 , Expires: 10/10/2023 Start: 07-11-2023 End: 10-10-2023 Lutropin [Units/volume] in Serum or Plasma LUTEINIZING HORMONE Lab Routine 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[facility]) Expected: 07/11/2023, Expires: 10/10/2023 [facility] Comment on above: Expected: 07/11/2023 , Expires: 10/10/2023 Start: 07-11-2023 End: 08-09-2024 MR Pituitary and Sella turcica WO and W contrast IV MRI PITUITARY WO/W IVCON Radiology Routine 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[facility]) Expected: 07/11/2023, Expires: 08/09/2024 [facility] Work Phone: Comment on above: Expected: 07/11/2023 , Expires: 08/09/2024 Start: 07-11-2023 End: 10-10-2023 Prolactin [Mass/volume] in Serum or Plasma PROLACTIN Lab Routine 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[facility]) Expected: 07/11/2023, Expires: 10/10/2023 [facility] Comment on above: Expected: 07/11/2023 , Expires: 10/10/2023 Start: 07-11-2023 End: 10-10-2023 Somatostatin [Mass/volume] in Plasma GROWTH HORMONE Lab Routine 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[facility]) Expected: 07/11/2023, Expires: 10/10/2023 [facility] Comment on above: Expected: 07/11/2023 , Expires: 10/10/2023 Start: 07-11-2023 End: 10-10-2023 Thyrotropin [Units/volume] in Serum or Plasma THYROID STIMULATING HORMONE Lab Routine 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[facility]) Expected: 07/11/2023, Expires: 10/10/2023 [facility] Comment on above: Expected: 07/11/2023 , Expires: 10/10/2023 Start: 07-11-2023 End: 10-10-2023 Thyroxine (T4) free [Mass/volume] in Serum or Plasma T4 FREE/FREE THYROXINE Lab Routine 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[facility]) Expected: 07/11/2023, Expires: 10/10/2023 [facility] Comment on above: Expected: 07/11/2023 , Expires: 10/10/2023 Start: 03-05-2023 Behavioral Health Screening Behavioral Health Screening [facility] Start: 11-03-2022 Covid-19 Vaccine ( season) Covid-19 Vaccine ( season) [facility] Start: 05-29-2018 DTaP/Tdap/Td Vaccine s (3 - Td or Tdap) DTaP/Tdap/Td Vaccines (3 - Td or Tdap) [facility] Start: 05-29-2018 Urine microalbumin profile DTaP,Tdap,Td Vaccine (3 - Td or Tdap) [facility] Start: 08-30-2015 Screening for malign ant neoplasm of cervix [facility] Start: 07-13-2014 Hepatitis B Vaccine (3 of 3 - 19+ 3-dose series) Hepatitis B Vaccine (3 of 3 - 19+ 3-dose series) [facility] Start: 07-13-2014 Hepatitis B Vaccines (3 of 3 - 19+ 3-dose series) Hepatitis B Vaccines (3 of 3 - 19+ 3-dose series) [facility] Start: 05-12-2014 Hepatitis A Vaccines (2 of 2 - 2-dose series) Hepatitis A Vaccines (2 of 2 - 2-dose series) [facility] Start: 2012 Hepatitis C screening Hepatitis C Sc reening [facility] Start: 2012 HIV screening HIV Screening [facility] Start: 05-18-2010 Varicella vaccination Varicell a Vaccines (2 of 2 - 13+ 2-dose series) [facility] Start: 2000 Pneumococcal Vaccine : Pediatrics (0 to 5 Years) and At-Risk Patients (6 to 64 Years) (1 of 2 - PCV) Pneumococcal Vaccine: Pediatrics (0 to 5 Years) and At-Risk Patients (6 to 64 Years) (1 of 2 - PCV) [facility] Start: 07-06-1999 IPV Vaccines (2 of 3 - 4-dose series) IPV Vaccines (2 of 3 - 4-dose series) [facility] Start: 1994 HIV screening HIV Screening [facility] Start: 1994 Lipid panel Lipid Panel [facility] Start: 1994 Yearly Adult Physical Yearly Adult P hysical [facility] ECG 12 lead ECG 12 lead ECG STAT 07/20/2023 2:57 PM EDT [facility] Work Phone: End: 07-20-2023 Extra Urine Doran Tube [facility] Work Phone: Comment on above: Once for 1 Occurrenc es starting 07/20/2023 until 07/20/2023 End: 07-20-2023 Urinalysis complete W Reflex Culture panel - Urine [facility] Service Area Work Phone: Comment on above: Once (Lab) for 1 Occ urrences starting 07/20/2023 until 07/20/2023 Immunizations Immunization Date Immunization Notes [facility] influenza, injectabl e, quadrivalent, preservative free Uriel Halina DO Work Phone: [facility] 12-06-2015 influenza virus vacc ine, unspecified formulation Karina Cummings MD Work Phone: [facility] 05-18-2014 hepatitis B vaccine, adult dosage Mohamad Mouchli [facility] 03-30-2014 hepatitis B vaccine, adult dosage Mohamad Mouchli [facility] 11-12-2013 hepatitis A vaccine, pediatric/adolescent dosage, 2 dose schedule Uriel Halina DO Work Phone: [facility] 11-12-2013 hepatitis A vaccine, unspecified formulation Mohamad Mouchli [facility] 11-12-2013 hepatitis B vaccine, pediatric or pediatric/adolescent dosage Mohamad Mouchli [facility] 11-12-2013 hepatitis A and hepatitis B vaccine Gwen Danielson MD Work Phone: [facility] Work Phone: 12-31-2012 influenza virus vacc ine, whole virus Uriel Halina DO Work Phone: [facility] 12-31-2012 influenza, whole Mohamad Rosa chli [facility] 12-14-2012 measles, mumps and rubella virus vaccine Carolyne Edmonds [facility] Comment on above: Reason for Medicatio n: Other (see comment) 04-20-2010 hepatitis A vaccine, pediatric/adolescent dosage, 2 dose schedule Uriel Halina DO Work Phone: [facility] 04-20-2010 hepatitis A vaccine, unspecified formulation Mohamad Mouchli [facility] 04-20-2010 varicella virus vaccine Jeovanny Danielson MD Work Phone: [facility] 05-29-2008 meningococcal ACWY vaccine, unspecified formulation Mohamad Mouchli [facility] 05-29-2008 meningococcal polysaccharide (groups A, C, Y and W-135) diphtheria toxoid conjugate vaccine (MCV4P) [employer] [facility] [employer] DO Work Phone: [facility] 05-29-2008 tetanus toxoid, redu bridget diphtheria toxoid, and acellular pertussis vaccine, adsorbed Mohamad Mouchli [facility] 12-13-2006 HPV, unspecified formulation Mohamad Mouchli [facility] 12-13-2006 human papilloma viru s vaccine, quadrivalent Uriel Halina DO Work Phone: [facility] 08-13-2006 HPV, unspecified formulation Mohamad Mouchli [facility] 08-13-2006 human papilloma viru s vaccine, quadrivalent Uriel Halina DO Work Phone: [facility] 06-13-2006 HPV, unspecified formulation Mohamad Mouchli [facility] 06-13-2006 human papilloma viru s vaccine, quadrivalent Uriel Halina DO Work Phone: [facility] 06-08-1999 diphtheria, tetanus toxoids and acellular pertussis vaccine, unspecified formulation Uriel Halina DO Work Phone: [facility] 06-08-1999 DTaP, unspecified formulation Mohamad Mouchli [facility] 06-08-1999 measles, mumps and rubella virus vaccine Mohamad Mouchli [facility] 06-08-1999 poliovirus vaccine, inactivated Uriel Halina DO Work Phone: [facility] 06-08-1999 poliovirus vaccine, unspecified formulation Gwen Danielson MD Work Phone: [facility] Payers Date Payer Category Payer Unknown [id number] 2019 [facility] [id number] 2019 Unknown [id number] 1994 Unknown [id number] 9.2.593 1994 Unknown [id number] [id number] 9.2.593 1994 Unknown [id number] [id number] 9.2.593 1994 Unknown [id number] [id number] 9.2.593 1994 Unknown [id number] [id number] 9.2.1243 1994 Unknown [id number] [id number] 9.2.727 1994 Unknown [id number] [id number] 9.2.727 1994 Unknown [id number] [id number] 9.2.727 1994 Unknown [id number] [id number] 9.2.1259 1994 Unknown [id number] [id number] 9.2.1259 1994 Unknown [id number] [id number] 9.2.1259 1994 Unknown [id number] 2.16.840.1.376775.3.57 9.2.1259 1994 Unknown [id number] [id number] 9.2.1259 1994 Unknown [id number] 2.16.840.1.665359.3.57 9.2.1259 1994 Unknown [id number] [id number] 9.2.1259 1994 Unknown [id number] [id number] 9.2.727 1959 Unknown [id number] 1959 Unknown [id number] 1959 Unknown [id number] Social History Date Type Detail Facility Tobacco smoking stat [facility] Tobacco smoking consumption unknown [facility] Start: 06-13-2023 End: 02-15-2024 History of Social function [facility] Start: 06-13-2023 End: 02-15-2024 Area Deprivation Index [facility] National Score (1-10 0), lower number is lower risk 85 [facility] Start: 1994 Sex Assigned At Not on file [facility] [facility] Start: 07-10-2023 End: 07-20-2023 Exposure to SARS-CoV-2 (event) Not sure [facility] Work Phone: Start: 09-06-2022 End: 09-13-2023 Tobacco smoking status Never smoked tobacco (finding) [facility] Start: 08-23-2023 End: 12-03-2023 Alcoholic beverage intake Lifetime non-drinker (finding) [facility] Start: 09-06-2022 Alcohol Comment caffeine: none [facility] Do you belong to any clubs or organizations such as mu-ism groups, unions, [employer] or athletic groups, or school groups? No [facility] Are you now , , , , never or living with a partner? [facility] How often to you hav e a drink containing alcohol? Monthly or less [facility] How many standard dr inks containing alcohol do you have on a typical day? 1 or 2 [facility] How often do you hav e 6 or more drinks on 1 occasion? Never [facility] Do you feel stress - tense, restless, nervous, or anxious, or unable to sleep at night because your mind is troubled all the time - these days [OSQ] Very much [facility] (I/We) worried [facility] (my/our) food would run out before (I/we) got money to buy more. Never true [facility] Functional Status Date Assessment Result Facility 10-15-2023 Functional Status N/A [facility] 09-13-2023 Functional Status N/A [facility] Clinical Notes 01-20-2021 to 03-12-2024 Akua Streeter LPN - 03/12/2024 8:00 AM PATRICIA Bustillo - 02/18/2024 3:33 PM PATRICIA Bustillo - 02/15/2024 10:00 AM PATRICIA Bustillo - 02/15/2024 10:00 AM EST Note Date & Type Note Facility 03-12-2024 History of Present illness Narrative Reason for Appointment: Patient ID: Indu St is a 28 y.o. female who presents for No chief complaint on file. Patient presents today via telephone call for a telehealth appointment. Patients Phone #: [phone] (mobile) Current Medications: has a current medication list which includes the following prescription(s): alprazolam, breyna, cholecalciferol, coenzyme q-10, fish oil concentrate, and vitamins. Medical History: Active Ambulatory Problems Diagnosis Date Noted Bipolar 1 disorder ([facility]) 11/13/2022 Anxiety 12/21/2022 Asthma ([facility]) 12/21/2022 Attention deficit hyperactivity disorder (ADHD), combined type ([facility]) 12/21/2022 Proteinuria 08/03/2010 PTSD (post-traumatic stress disorder) ([facility]) 12/21/2022 Bipolar affective disorder, current episode hypomanic ([facility]) 12/21/2022 Well woman exam with routine gynecological exam 03/19/2023 Myalgia 02/18/2024 Resolved Ambulatory Problems Diagnosis Date Noted No Resolved Ambulatory Problems Past Medical History: Diagnosis Date Abnormal uterine bleeding (AUB) ADHD (attention deficit hyperactivity disorder) ([facility]) Amenorrhea Bilateral sacroiliitis ([facility]) Cervical cancer ([facility]) Chronic fatigue Chronic rhinitis Chronic vaginitis Depression [...] 03/2020 lap, D and C - at [facility] DILATION AND CURETTAGE OF UTERUS 03/07/2013 ; 08/13/2015 DILATION AND CURETTAGE OF UTERUS 10/27/2022 EGD 11/2023 HYSTEROSCOPY 06/12/2016 Laproscopy/hysterscopy Allergies Allergen Reactions Dust Mite Extract Unknown Vitals: Estimated body mass index is 17.59 kg/m as calculated from the following: Height as of 12/03/23: 5' 6 . Weight as of 12/03/23: 109 lb. BP: No LMP recorded. Assessment/Plan 03/13/24 5:30pm Provider called patient to review questions in regards to fertility. Patient voiced that she has some concerns in regards to her medical marijuana card and . Informed patient that CPS is their own entity and office cannot speak on their behalf as to how they would handle if patient has a positive UDS in . Patient voiced that it helps with her mental health and being able to eat while . Patient then inquired if she would be able to get infusions locally ordered by provider after starting fertility. Patient was informed that office is not a fertility clinic and there maybe some things that need to be obtained through specialty clinic. [facility] and aware that nursing staff will obtain fertility clinic notes for provider to review, so then patient will be able to be informed on what can be done locally or what needs to be done through specialist. Documented on behalf of Dr. Uriel Meade DO by Akua Streeter LPN Today's telehealth visit consisted of spending 10 minutes talking to patient on the phone. Documented by Akua Streeter LPN on behalf of: Uriel Meade DO documented in this encounter [facility] 02-18-2024 History of Present illness Narrative Associated Problem(s): Myalgia Dr Edmonds put in lab orders and patient will go to [facility] Will call with results Images from the original note were not included. Indu St is a 28 y.o. female presents with chief complaint of No chief complaint on file. HPI: History of Present Illness Patient states that she is having issues with joint pain stan her hands. MEDICATIONS: Current Outpatient Medications Medication Instructions ALPRAZolam (Xanax) 0.5 MG tablet 1 tablet Orally Twice a day as needed for anxiety for 30 days budesonide-formoterol (Breyna) 80-4.5 MCG/ACT inhaler 2 puffs, Inhalation, Daily, Rinse mouth with water after use to reduce aftertaste and incidence of candidiasis. Do not swallow. fish oil concentrate 1 g, Oral, Daily Vit-Fe Fumarate-FA ( Vitamins) 28-0.8 MG tablet 1 tablet, Oral, Daily ALLERGIES: Allergies Allergen Reactions Dust Mite Extract Unknown Review of Systems General: Denies fever, chills, fatigue, HERNANDES or weight loss/gain CV: Denies CP, palpitations or swelling in legs Resp: denies cough, SOB or wheezing GI: Denies abd pain/n/v/c/d Skin: Denies rash Neuro: Denies LH or dizziness Medical, Surgical, Family, and Social History reviewed. OBJECTIVE: Visit Vitals OB Status Having periods Smoking Status Never BP Readings from Last 3 Encounters: 12/03/23 102/68 08/23/23 106/60 07/26/23 96/62 Wt Readings from Last 3 Encounters: 12/03/23 109 lb 08/23/23 108 lb 07/26/23 114 lb Physical Exam Physical Exam General: alert & oriented, NAD Head: NC/AT Oral Cavity: MMM Skin: warm, dry Heart: RRR, No m/r/g, S1S2 nml Lungs: CTA b/l Abdomen: soft, ND/NT, BS wnl Musculoskeletal: normal gait Extremities: no clubbing, cyanosis or edema Neurological: nonfocal Psych: mood/affect full range Results ASSESSMENT AND PLAN: Assessment & Plan Assessment/Plan Health Maintenance Due Topic Date Due Influenza Vaccine (1) 11/04/2023 Images from the original note were not included. Indu St is a 28 y.o. female presents with chief complaint of No chief complaint on file. HPI: History of Present Illness Patient here via televisitTelehealth Encounter: Verbal consent was obtained from patient for Telehealth Services. Patient Location ([place]) Patient is concerned about ongoing joint pain , in hands, elbows and legs and fatigue No rash Patient interested in lab work MEDICATIONS: Current Outpatient Medications Medication Instructions ALPRAZolam (Xanax) 0.5 MG tablet 1 tablet Orally Twice a day as needed for anxiety for 30 days budesonide-formoterol (Breyna) 80-4.5 MCG/ACT inhaler 2 puffs, Inhalation, Daily, Rinse mouth with water after use to reduce aftertaste and incidence of candidiasis. Do not swallow. fish oil concentrate 1 g, Oral, Daily Vit-Fe Fumarate-FA ( Vitamins) 28-0.8 MG tablet 1 tablet, Oral, Daily ALLERGIES: Allergies Allergen Reactions Dust Mite Extract Unknown Review of Systems General: Denies fever, chills, fatigue, HERNANDES or weight loss/gain CV: Denies CP, palpitations or swelling in legs Resp: denies cough, SOB or wheezing GI: Denies abd pain/n/v/c/d Skin: Denies rash Neuro: Denies LH or dizziness Medical, Surgical, Family, and Social History reviewed. OBJECTIVE: Visit Vitals OB Status Having periods Smoking Status Never BP Readings from Last 3 Encounters: 12/03/23 102/68 08/23/23 106/60 07/26/23 96/62 Wt Readings from Last 3 Encounters: 12/03/23 109 lb 08/23/23 108 lb 07/26/23 114 lb Physical Exam Physical Exam General: alert & oriented, NAD Head: NC/AT Oral Cavity: MMM Skin: warm, dry Heart: RRR, No m/r/g, S1S2 nml No resp distress during exam Neurological: nonfocal Psych: mood/affect full range Results ASSESSMENT AND PLAN: Assessment & Plan Assessment/Plan Problem List Items Addressed This Visit Myalgia - Primary Dr Edmonds put in lab orders and patient will go to [facility] Will call with results Health Maintenance Due Topic Date Due Influenza Vaccine (1) 11/04/2023 documented in this encounter [facility] 02-18-2024 Evaluation + Plan note Diagnostic Tests Pending.JESUS Individual Abs 02/18/24Rheumatoid Factor Quantitative 02/18/24 [facility] 01-16-2024 History of Present illness Narrative Reason for Appointment: Patient ID: Indu St is a 28 y.o. female who presents for Telehealth and Infertility Patient presents today via telephone call for a telehealth appointment. Patients Phone #: [phone] (mobile) Current Medications: has a current medication list which includes the following prescription(s): alprazolam and breyna. Medical History: Active Ambulatory Problems Diagnosis Date Noted Bipolar 1 disorder ([facility]) 11/13/2022 Anxiety 12/21/2022 Asthma ([facility]) 12/21/2022 Attention deficit hyperactivity disorder (ADHD), combined type ([facility]) 12/21/2022 Proteinuria 08/03/2010 PTSD (post-traumatic stress disorder) ([facility]) 12/21/2022 Bipolar affective disorder, current episode hypomanic ([facility]) 12/21/2022 Well woman exam with routine gynecological exam 03/19/2023 Resolved Ambulatory Problems Diagnosis Date Noted No Resolved Ambulatory Problems Past Medical History: Diagnosis Date Abnormal uterine bleeding (AUB) ADHD (attention deficit hyperactivity disorder) ([facility]) Amenorrhea Bilateral sacroiliitis ([facility]) Cervical cancer ([facility]) Chronic fatigue Chronic rhinitis Chronic vaginitis Depression [...] 03/2020 lap, D and C - at [facility] DILATION AND CURETTAGE OF UTERUS 03/07/2013 [...] pt has appt with IVF clinic in [place]. Pt is having weird symptoms- anal itching, [...] Uriel Meade DO documented in this encounter [facility] 12-03-2023 History of Present illness Narrative Reason for Appointment: Patient ID: Indu St is a 28 y.o. female who presents for Infertility Patient presents today for Consult appointment. MEDICATIONS Current Outpatient Medications Medication Instructions ALPRAZolam (Xanax) 0.5 MG tablet 1 tablet Orally Twice a day as needed for anxiety for 30 days budesonide-formoterol (Breyna) 80-4.5 MCG/ACT inhaler 2 puffs, Inhalation, Daily, Rinse mouth with water after use to reduce aftertaste and incidence of candidiasis. Do not swallow. ALLERGIES Allergies Allergen Reactions Dust Mite Extract Unknown PROBLEMS Active Ambulatory Problems Diagnosis Date Noted Bipolar 1 disorder ([facility]) 11/13/2022 Anxiety 12/21/2022 Asthma ([facility]) 12/21/2022 Attention deficit hyperactivity disorder (ADHD), combined type ([facility]) 12/21/2022 Proteinuria 08/03/2010 PTSD (post-traumatic stress disorder) ([facility]) 12/21/2022 Bipolar affective disorder, current episode hypomanic ([facility]) 12/21/2022 Well woman exam with routine gynecological exam 03/19/2023 Resolved Ambulatory Problems Diagnosis Date Noted No Resolved Ambulatory Problems Past Medical History: Diagnosis Date Abnormal uterine bleeding (AUB) ADHD (attention deficit hyperactivity disorder) ([facility]) Amenorrhea Bilateral sacroiliitis ([facility]) Cervical cancer ([facility]) Chronic fatigue Chronic rhinitis Chronic vaginitis Depression with anxiety Endometriosis Gynecological disorder History of medical problems Infertility counseling Low libido Miscarriage S/P laparoscopy Sciatica, unspecified side Seasonal allergic rhinitis, unspecified trigger Serous otitis media, unspecified chronicity, unspecified laterality URI (upper respiratory infection) 03/01/2019 HISTORY PAST MEDICAL HISTORY SOCIAL HISTORY Past Medical History: Diagnosis Date Abnormal uterine bleeding (AUB) ADHD (attention deficit hyperactivity disorder) ([facility]) Amenorrhea Bilateral sacroiliitis ([facility]) Cervical cancer ([facility]) Chronic fatigue Chronic rhinitis Chronic vaginitis Depression with anxiety Depression/Anxiety Endometriosis Gynecological disorder History of medical problems Question of bipolar disorder Infertility counseling Low libido Miscarriage S/P laparoscopy Sciatica, unspecified side Seasonal allergic rhinitis, unspecified trigger Serous otitis media, unspecified chronicity, unspecified laterality URI (upper respiratory infection) 03/01/2019 [facility] Social History Tobacco Use Smoking status: Never Smokeless tobacco: Not on file Substance Use Topics Alcohol use: Never Comment: caffeine: none Drug use: Not on file FAMILY HISTORY Family History Problem Relation Name Age of Onset Lung cancer Mother Hypothyroidism Mother ADD / ADHD Mother Arthritis Father Lung cancer Father Hypertension Maternal Grandmother Cancer Maternal Grandmother Hypertension Maternal Grandfather Heart disease Maternal Grandfather Stroke Maternal Grandfather Cervical cancer Paternal Grandmother Clotting disorder Paternal Grandmother Hypertension Paternal Grandmother ADD / ADHD Sibling No Known Problems Daughter SURGICAL HISTORY Past Surgical History: Procedure Laterality Date COLONOSCOPY 11/2023 DILATION AND CURETTAGE 03/2020 lap, D and C - at [facility] DILATION AND CURETTAGE OF UTERUS 03/07/2013 ; 08/13/2015 DILATION AND CURETTAGE OF UTERUS 10/27/2022 EGD 11/2023 HYSTEROSCOPY 06/12/2016 Laproscopy/hysterscopy REVIEW OF SYSTEMS Review of Systems: Review of Systems All other systems reviewed and are negative. OBJECTIVE Objective: Physical Exam Constitutional: Appearance: Normal appearance. She is well-developed. Cardiovascular: Rate and Rhythm: Normal rate and regular rhythm. Pulmonary: Effort: Pulmonary effort is normal. Breath sounds: Normal breath sounds. Abdominal: General: Bowel sounds are normal. There is no distension. Palpations: Abdomen is soft. Tenderness: There is no abdominal tenderness. There is no guarding or rebound. Musculoskeletal: General: No swelling. Normal range of motion. Right lower leg: No edema. Left lower leg: No edema. Neurological: Mental Status: She is alert and oriented to person, place, and time. Skin: General: Skin is warm and dry. Psychiatric: Mood and Affect: Mood normal. Behavior: Behavior normal. Vitals and nursing note reviewed. Exam conducted with a bridge engineer present. Vitals: Estimated body mass index is 17.59 kg/m as calculated from the following: Height as of this encounter: 5' 6 . Weight as of this encounter: 109 lb. BP: 102/68 Patient's last menstrual period was 11/16/2023. ASSESSMENT & PLAN Patient presents today for fertility management. Patient voiced she does not want to do IVF or IUI. Informed patient that if tubes are not able to be opened. Patient is willing to have HSG done again locally at [facility]. Patient is to call office when she starts cycle and nurse will send HSG and HCG to [facility] Radiology. Will hold off on fertility meds for the next cycle until HSG results are back. Patient to return to clinic for annual and PRN as needed. Documented by Akua Streeter LPN on behalf of: Uriel Meade DO documented in this encounter [facility] 10-15-2023 Evaluation + Plan note Extrac latisha from: Title:ANES Post General Author:Gus Moreno DO Date:10/15/23 Plan Transfer/Discharge: Patient exhibiting no signs of N/V. Hydration status is adequate. Extracted from: Title:Josh Basic PRE Author:Kenan Moreno DO Date:10/15/23 Plan [place] [employer]esthesi[employer] (ASA) physical status classification: Class II. Anesthetic Preoperative Plan: Anesthesia General. [facility] 08-12-2024 Hospital Discharge instructions Patient Education 10/15/2023 09:50:27 Colonoscopy, Care After Surgery [facility] (CUSTOM) Colonoscopy Care After Surgery Please read the instructions outlined below and refer to this sheet in the next few weeks. These discharge instructions provide you with general information on [facility] Your doctor may also give you [...] day. 10/15/2023 09:50:26 Endoscopy, Care After Procedure [facility] (CUSTOM) Endoscopy Care After Procedure Please read the instructions outlined below and refer to this sheet in the next few weeks. These discharge instructions provide you with general information on [facility] Your doctor may also give you specific [...] blood. Document Released: 10/03/2004 Document Re-Released: 08/13/2006 [facility] Information 2009 dax [place]. Follow Up Care 09/13/2023 15:40:21 With:Alex Knutson Address: [address] [place] [address], [address] [place] [phone] Business (1) When:1 to 2 weeks Comments:Call for any problems. [facility] 08-12-2024 NoteProgress Note-Physician Patient: INDU ST [...] Daily, # 527 gm, Refills(s) 5, Pharmacy: [facility] #[id number], 167, cm, 09/13/23 14:57:00 EDT, Height/Length Dosing, 48.9, kg, 09/13/23 14:57:00 EDT, Weight Dosing Pantoprazole [address] Tab: 40 mg = 1 tab(s), Oral, Daily, # 30 tab(s), Refills(s) 4, Pharmacy: [facility] #[id number], 167, cm, 09/13/23 14:57:00 EDT, Height/Length Dosing, [...] CT of the abdomen / SNOMED CT 1829409822 / Confirmed Abnormal uterine bleeding. / SNOMED CT 6624259688 / Confirmed Amenorrhea / SNOMED CT 30664573 / Confirmed Anemia / SNOMED CT 489482710 / Confirmed Anxiety / SNOMED CT 50533548 / Confirmed Asthma / SNOMED CT 898854790 / Confirmed Attention deficit hyperactivity disorder / SNOMED CT 6084766860 / Confirmed Benign neoplasm of pituitary gland / SNOMED CT 954445789 / Confirmed Bilateral arthritis of sacroiliac joint / SNOMED CT 9060477627 / Confirmed Bipolar disorder / SNOMED CT 63595318 / Confirmed Chronic rhinitis / SNOMED CT 467414557 / Confirmed Chronic vaginitis / SNOMED CT 19232692 / Confirmed Depressive disorder / SNOMED CT 87913260 / Confirmed Disorder of pituitary gland / SNOMED CT 8394813885 / Confirmed Endometriosis (clinical) / SNOMED CT 034512052 / Confirmed Esophagitis / SNOMED CT 50442195 / Confirmed Fatigue / SNOMED CT 212632741 / Confirmed Gastritis / SNOMED CT 3314894 / Confirmed Heartburn / SNOMED CT 72992214 / Confirmed History of laparoscopy / SNOMED CT 8821388055 / Confirmed Malignant tumor of cervix / SNOMED CT 435661068 / Confirmed Miscarriage / SNOMED CT 53363478 / Confirmed Nausea and vomiting / SNOMED CT 44293662 / Confirmed Pain in pelvis / SNOMED CT 054761622 / Confirmed Prolactin level above reference range / SNOMED CT 6514916208 / Confirmed Prolactinoma / SNOMED CT 510515208 / Confirmed Sciatica / SNOMED CT 77728623 / Confirmed Seasonal allergic rhinitis / SNOMED CT 557481752 / Confirmed Stress-related physiological response affecting medical condition / SNOMED CT 21008122 / Confirmed 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 Weight loss / SNOMED CT 962282592 / Confirmed Physical Examination Vital Signs 10/15/2023 [...] 36.7 DegC Heart Rate (more content not included)...[facility]Result Comment: Electronically Signed By: Lenny Moreno DO\.br\Date and Time Signed: 10/15/23 10:06 [id number] NoteColonoscopy Procedure Report Patient: INDU ST Age: [...] Daily, # 527 gm, Refills(s) 5, Pharmacy: [facility] #[id number], 167, cm, 09/13/23 14:57:00 EDT, Height/Length Dosing, 48.9, kg, 09/13/23 14:57:00 EDT, Weight Dosing Pantoprazole [address] Tab: 40 mg = 1 tab(s), Oral, Daily, # 30 tab(s), Refills(s) 4, Pharmacy: [facility] #[id number], 167, cm, 09/13/23 14:57:00 EDT, Height/Length Dosing, [...] 24 hours. Education and Follow-up: Counseled: Patient, Family.[facility] Comment on above:Other Comment: Missing Attachment - attachment storage system not supported [id number] Can be viewed in source system Missing Attachment - attachment storage system not supported [id number] Can be viewed in source systemMissing Attachment - attachment storage system not supported [id number] Can be viewed in source systemMissing Attachment - attachment storage system not supported [id number] Can be viewed in source systemMissing Attachment - attachment storage system not supported [id number] Can be viewed in source systemMissing Attachment - attachment storage system not supported [id number] Can be viewed in source systemMissing Attachment - attachment storage system not supported [id number] Can be viewed in source [id number] Note Patient Education - Text Colonoscopy Care [...] on caring for [facility]. Your doctor may also give you [...] Document Re-Released: 08/13/2006 ExitCare? Patient Information ?2009 dax [place].[facility] 10-15-2023 NoteProgress Note-Physician Patient: INDU ST Age: 28 years Sex: Female : 1995 Associated Diagnoses: None Author: Lenny Moreno DO Preoperative Information Anesthesia history: Patient history: None. Family history+: None. Anesthesia results Informed consent: Signed by patient. Including risks, benefits, and alternatives related to the: Anesthetic plan, Postoperative pain management plan. Re-evaluation prior to induction: Lenny Moreno DO Health Status Allergies: Allergic Reactions (Selected) No [...] Daily, # 527 gm, Refills(s) 5, Pharmacy: [id number], 167, cm, 09/13/23 14:57:00 EDT, Height/Length Dosing, 48.9, kg, 09/13/23 14:57:00 EDT, Weight Dosing Pantoprazole [address] Tab: 40 mg = 1 tab(s), Oral, Daily, # 30 tab(s), Refills(s) 4, Pharmacy: [facility] #[id number], 167, cm, 09/13/23 14:57:00 EDT, Height/Length Dosing, [...] CT of the abdomen / SNOMED CT 7519729935 / Confirmed Abnormal uterine bleeding. / SNOMED CT 6663103721 / Confirmed Amenorrhea / SNOMED CT 67351582 / Confirmed Anemia / SNOMED CT 695944674 / Confirmed Anxiety / SNOMED CT 96183087 / Confirmed Asthma / SNOMED CT 014411680 / Confirmed Attention deficit hyperactivity disorder / SNOMED CT 1208720442 / Confirmed Benign neoplasm of pituitary gland / SNOMED CT 782842177 / Confirmed Bilateral arthritis of sacroiliac joint / SNOMED CT 0460491553 / Confirmed Bipolar disorder / SNOMED CT 68013104 / Confirmed Chronic rhinitis / SNOMED CT 202610013 / Confirmed Chronic vaginitis / SNOMED CT 48486660 / Confirmed Depressive disorder / SNOMED CT 71688023 / Confirmed Disorder of pituitary gland / SNOMED CT 1542302801 / Confirmed Endometriosis (clinical) / SNOMED CT 860554074 / Confirmed Esophagitis / SNOMED CT 92837400 / Confirmed Fatigue / SNOMED CT 227644126 / Confirmed Gastritis / SNOMED CT 3743144 / Confirmed Heartburn / SNOMED CT 04683827 / Confirmed History of laparoscopy / SNOMED CT 2532085660 / Confirmed Malignant tumor of cervix / SNOMED CT 486901659 / Confirmed Miscarriage / SNOMED CT 76890302 / Confirmed Nausea and vomiting / SNOMED CT 17901217 / Confirmed Pain in pelvis / SNOMED CT 012686293 / Confirmed Prolactin level above reference range / SNOMED CT 7538755581 / Confirmed Prolactinoma / SNOMED CT 446274002 / Confirmed Sciatica / SNOMED CT 06038935 / Confirmed Seasonal allergic rhinitis / SNOMED CT 266721781 / Confirmed Stress-related physiological response affecting medical condition / SNOMED CT 83121911 / Confirmed Visceral hypersensitivity syndrome / SNOMED CT 6226107937 / Confirmed Weight loss / SNOMED CT 656136568 / Confirmed, Active Problems (31) Abnormal CT of the abdomen Abnormal uterine bleeding. 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 Bipolar disorder Chronic rhinitis Chronic vaginitis Depressive disorder Disorder of pituitary gland Endometriosis (cl (more content not included)...[facility] Comment on above:Result Comment: Electronically Signed By: Lenny Moreno DO\.br\Date and Time Signed: 10/15/23 07:34 [id number] Telephone encounter Note* Telephone Encounter - Twyla Salcedo MA - 08/14/2023 11:08 AM EDT Received MRI results completed 08/02/2023, scanned to chart Twyla Salcedo Motor Vehicle Representative II Endocrinology & Metabolism [facility] F20 & X20 [facility]06-11-2024 Miscellaneous Notes* Telephone Encounter - Twyla Salcedo MA - 08/14/2023 11:08 AM EDT Received MRI results completed 08/02/2023, scanned to chart Twyla Salcedo Motor Vehicle Representative II Endocrinology & Metabolism [facility] F20 & X20 documented in [facility] encounter[facility] Reason for referral (narrative)* Consultation (Routine) - Authorized Specialty Diagnoses / Procedures Referred By Niki villeda Referred To Contact Gastroenterology Abiodun Ochoa PA-C [address] [place] [address] Do [address] [facility] [address] [place] [address] Referral ID Status Reason Start Date Expiration Date Visits Requested Visits Authorized [id number] Authorized Specialty Services Required 07/20/2023 07/19/2024 1 1 [facility] Work Phone: [phone] NoteHNO ID: [id number] Author: KARINA CUMMINGS MD Service: ? Author [...] June 13, 2023 TIME of SERVICE: 10:12 [facility]04-10-2024 History of Present illness Narrative* [...] of SERVICE: 10:12 AM documented in [facility] encounter[facility]11-[facility]-2021 NoteHNO ID: [id number] Author: Renetta Beltran MD Service: Reproductive Endocrinology [...] Dr. Renetta Beltran M.D. Reproductive Endocrinology and InfertilitySalt [facility] [id number] NoteHNO ID: [id number] Author: RT Juan(R) Service: Radiology Author Type: [...] BY: RT Juan(R) January 20, 2021 12:29 [facility] note Future Appointments Appointment Date:10/01/2023 09:00:00 AM Scheduled Provider: Location:[facility] Appointment Type:Surgery FT [facility] Evaluation note* Diagnosis Prolactinoma (HCC)- Primary Benign neoplasm of pituitary gland and craniopharyngeal duct (pouch) 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HCC) Unspecified disorder of the pituitary gland and its hypothalamic control Elevated prolactin level Unspecified endocrine disorder documented in this encounter [facility] Diagnosis Nausea and vomiting, unspecified vomiting type- Primary Gastritis, presence of bleeding unspecified, unspecified chronicity, unspecified gastritis type documented in this encounter [facility] Work Phone: Evaluation note* Diagnosis Female infertility Female infertility of unspecified origin Vaginal odor Unspecified symptom associated with female genital organs documented in this encounter [facility] HealthcareEvaluation note* Diagnosis Myalgia- Primary Unspecified myalgia and myositis documented in this encounter [facility] HealthcareEvaluation note* Diagnosis Fallopian tube disorder- Primary Unspecified noninflammatory disorder of ovary, fallopian tube, and broad ligament documented in this encounter [facility] HealthcareEvaluation note* Diagnosis Myalgia- Primary Unspecified myalgia and myositis Fallopian tube disorder Unspecified noninflammatory disorder of ovary, fallopian tube, and broad ligament Anovulation Female infertility associated with anovulation Female infertility Female infertility of unspecified origin [facility] N[facility]ative No data available for this section [facility] Hospital Discharge instructions* Attachments The following attachments cannot be sent through Care Everywhere. * Gastritis ED ([place]) * Nausea and Vomiting, Adult ED ([place]) * Cannabis hyperemesis syndrome ([place]) [facility] Hospital Discharge instructions No data available for this section [facility] Progress note No data available for this section [facility] Summary Purpose Family History No [...] STEM W/O W/CONTRAST MATERIAL Karina Cummings MD [address] [place] [address] [place] [address] Referral ID Status Reason Start Date Expiration Date Visits Requested Visits Authorized [id number] Pending Review Auto-Generat ed Referral 07/11/2023 08/09/2024 1 1 Additional Source Comments INFORMATION SOURCE (unrecogn ized section and content) DATE CREATED AUTHOR 04/15/2020 [facility] DATE CREATED AUTHOR AUTHOR'S ORGANIZ ATION 01/22/2021 [facility] DATE CREATED AUTHOR AUTHOR'S ORGANIZ ATION 07/30/2023 [facility] ical Center DATE CREATED AUTHOR AUTHOR'S ORGANIZ ATION 08/24/2023 [facility] DATE CREATED AUTHOR AUTHOR'S ORGANIZ ATION 09/19/2023 [facility] DATE CREATED AUTHOR AUTHOR'S ORGANIZ ATION 10/16/2023 Sandra Gautam [facility] DATE CREATED AUTHOR AUTHOR'S ORGANIZ ATION 10/18/2023 [facility] ical Center DATE CREATED AUTHOR AUTHOR'S ORGANIZ ATION 10/19/2023 [facility] DATE CREATED AUTHOR AUTHOR'S ORGANIZ ATION 02/17/2024 [facility] DATE CREATED AUTHOR AUTHOR'S ORGANIZ ATION 02/21/2024 [facility] ical Center DATE CREATED AUTHOR AUTHOR'S ORGANIZ ATION 02/23/2024 [facility] DATE CREATED AUTHOR AUTHOR'S ORGANIZ ATION 02/24/2024 [facility] DATE CREATED AUTHOR AUTHOR'S ORGANIZ ATION 03/05/2024 [facility] Source Comments (unrecognize d section and content) In the event this informatio n is protected by the [facility] Confidentiality of Alcohol and Drug Abuse Patient Records regulations: The Federal rules restrict any use of the information to criminally investigate or prosecute any alcohol or drug abuse patient.[facility] the event this information is protected by the Federal Confidentiality of Alcohol and Drug Abuse Patient Records regulations: The Federal rules restrict any use of the information to criminally investigate or prosecute any alcohol or drug abuse patient.[facility] Reason for Visit (unrecogniz ed section and content) Reason Comments Pituitary Problem Reason Comments n/v. chest pain Reason Comments Results Reason Comments Telehealth Infertility Reason Comments Infertility Care Teams (unrecognized sec tion and content) Early Childhood Worker Relationship Specialty Start Date End Date Uriel Meade DO [address] [place] [address] Referring Bad Cloth Checker 06/05/23 Early Childhood Worker Relationship Specialty Start Date End Date Uriel Meade DO [address] [place] [address] Referring Bad Cloth Checker 06/05/23 Early Childhood Worker Relationship Specialty Start Date End Date Carolyne Edmonds MD [address] [place] [address] PCP - General Family Medicine 08/28/22 Early Childhood Worker Relationship Specialty Start Date End Date Carolyne Edmonds MD [address] [place] [address] PCP - General Family Medicine 08/28/22 Early Childhood Worker Relationship Specialty Start Date End Date Carolyne Edmonds MD [address] [place] [address] PCP - General Family Medicine 08/28/22 Early Childhood Worker Relationship Specialty Start Date End Date Carolyne Edmonds MD [address] [place] [address] PCP - General Family Medicine 08/28/22 Early Childhood Worker Relationship Specialty Start Date End Date Carolyne Edmonds MD [address] [place] [address] PCP - General Family Medicine 08/28/22 Early Childhood Worker Relationship Specialty Start Date End Date Carolyne Edmonds MD [address] [place] [address] PCP - General Family Medicine 08/28/22 Early Childhood Worker Relationship Specialty Start Date End Date Carolyne Edmonds MD [address] [place] [address] PCP - General Family Medicine 08/28/22 Early Childhood Worker Relationship Specialty Start Date End Date Carolyne Edmonds MD [address] [place] [address] PCP - General Family Medicine 6/26/23 Early Childhood Worker Relationship Specialty Start Date End Date Carolyne Edmonds MD [address] [place] [address] PCP - General Family Medicine 08/28/22 Scheduled [...] dose 1740 (Given - Provid er: Akin Magaña) ketorolac (Toradol) injection 15 mg (COMPLETED) 15 [...] BE BASED ON THE PRIMARY CLINICAL RECORDS. [employer] [facility]. provides no warranty or guarantee of the accuracy or completeness of information in this document.
== END 2024-04-08 13:41 | disposition home or self-care (01) ==
LOC: US 13:40
PROVIDERS: PCP Family Medicine; Visit Provider Obstetrics & Gynecology Reproductive Endocrinology
DX: Z31.83 Encounter for assisted reproductive fertility procedure cycle (principal)
CPT/HCPCS: 76830

== ENCOUNTER 2024-04-14 06:57 | Outpatient (OUT) | payer BC, SELFPAY ==
--- NOTE | 2024-04-14 | US_ITS ---
[address] [address] Patient Name: INDU ST MRN: [id number] date: 1995 Sex: F Assigned Patient Location: Current Patient Location: US Accession/Order Number: [id number] Exam Date: 04/14/2024 07:00 Report Date: 04/14/2024 07:42 At the request of: JADE MARIANO Procedure: US pelvis transvaginal EXAMINATION: US pelvis transvaginal HISTORY: Encounter for ART procedure Z31.83 COMPARISON: 04/08/2024 FINDINGS: The uterus is normal in size, contour and echotexture measuring 10.1 x 4.6 x 6.6 cm per the uterus is anteverted. No focal myometrial mass The endometrium measures 9 mm, trilaminar. The right ovary measures 2.3 x 4.7 x 2.4 cm. Normal color and Doppler flow. 12 subcentimeter follicles. Left ovary measures 2.6 x 4.3 x 2.5 cm. Normal color and Doppler flow. 11 subcentimeter follicles US/US pelvis transvaginal IMPRESSION: Normal exam. Electronically authenticated by: ROMY VIRGEN Date: 04/14/2024 07:42
--- OUTSIDE RECORDS SUMMARY | 2024-04-14 07:00 | XMS_ITS | CCD ---
Author Organization [facility] Care Team Providers Care Escrow Clerk Name Role Phone YASMIN MARTINEZ Consulting Unavailable CAROLYNE EDMONDS Primary Care Unavailable KARILDEFONSOK, YASMIN Admitting Unavailable KARILDEFONSOKYASMIN Attending Unavailable GIGI COBB Consulting Unavailable KARASIK, YASMIN Admitting Unavailable KARASIK, YASMIN Attending Unavailable KARASIKYASMIN Consulting Unavailable KARASIK, YASMIN Consulting Unavailable KARASIK, YASMIN Admitting Unavailable KARASIK, YASMIN Attending Unavailable RONALDKYASMIN Primary Care Unavailable KARASIK, YASMIN Admitting Unavailable KARILDEFONSOK, YASMIN Attending Unavailable Uriel Meade DO R Unavailable Unavailable Primary Care Provider UnavailKARINA Tilley Attending Unavailable Carolyne Edmonds Primary Care Physician GWEN DANIELSON Attending Unavailable Alex Knutson ATyrone Referring Unavailable Alex Knutson ATyrone Admitting Unavailable Alex Knutson Attending Unavailable Alex Knutson Attending Unavailable Carolyne Edmonds Referring Unavailable Alex Knutson ATyrone Referring Unavailable Payam Knutsonamad ATyrone Attending Unavailable Alex Knutson Admitting Unavailable Carolyne Edmonds MD Primary Care Provider URIEL MEADE Attending Unavailable CAROLYNE EDMONDS Attending Unavailable CAROLYNE EDMONDS Attending Unavailable CAROLYNE EDMONDS Attending Unavailable URIEL MEADE Attending Unavailable CAROL MAGAÑA Attending Unavailable CAROLYNE EDMONDS Attending Unavailable Carolyne Edmonds Attending Unavailable Carolyne Edmonds Admitting Unavailable Carolyne Edmonds Attending Unavailable Carolyne Edmonds Admitting Unavailable MD JADE LEDBETTER Attending Unavailable MD JADE LEDBETTER Admitting Unavailable Allergies Allergy Classification Reported Allergen(s) Allergy Type Date of Onset Reaction(s) Facility (1 source) No Known Medication Allergies; Translations: [No Known Medication Allergies] Propensity to adverse reactions (disorder) [facility] Repository (15 sources) House dust mite Allergy to substance [...] Status: Ordered ALPRAZolam 0.5 mg oral tablet (19 sources) Benzodiazepine Start: 09-13-2023 take 1 tablet [...] Status: Ordered budesonide-formoterol (Breyna) 80-4.5 MCG/ACT inhaler (15 sources) Start: 08-23-2023 End: 08-22-2024 take 2 puff(s) by mouth once daily budesonide-formoterol (Breyna) 80-4.5 MCG/ACT inhaler Indications: Mild intermittent asthma without complication (CMS/HCC) Inhale 2 puffs Daily Rinse mouth with water after use to reduce aftertaste and incidence of candidiasis. Do not swallow. 10.2 g 2 08/23/2023 08/22/2024 Active cholecalciferol 0.025 mg oral tablet (4 sources) Vitamin D Start: 02-21-2024 take 1 [...] / eicosapentaenoic acid 180 mg oral capsule (8 sources) Start: 01-22-2024 End: 02-20-2025 take 1 capsule by mouth once daily fish oil concentrate (Edgewood-3) 1000 MG capsule Indications: Female infertility , [...] Active methylphenidate hydrochloride 20 mg oral tablet (8 sources) Central Nervous System Stimulant Start: 08-23-2023 [...] 3350 Oral Pwdr for Recon 249 gram (2 sources) Start: 09-16-2019 MiraLax 3350 Oral Pwdr for Recon 249 gram 17 gram, Oral, Daily, # 527 gram, Refills(s) 0, Pharmacy: [facility] #[id number], 168, cm, 09/15/19 7:03:00 EDT, Height/Length Measured, [...] tablet 07/20/2023 08/09/2023 Active polyethylene glycol 3350 85872 mg powder for oral solution (2 sources) Osmotic Laxative Start: 09-13-2023 take 17 g by mouth once daily Miralax 3350 17 gram packet 17 gm, Oral, Daily, # 527 gm, Refills(s) 5, Pharmacy: [facility] #[id number], 167, cm, 09/13/23 14:57:00 EDT, Height/Length Dosing, 48.9, kg, 09/13/23 14:57:00 EDT, Weight Dosing Start Date: 09/13/23 Status: Ordered Vit-Fe Fumarate-FA ( Vitamins) 28-0.8 MG tablet (8 sources) Start: 02-21-2024 End: 02-20-2025 take 1 [...] 1 tablet by mouth Daily 30 tablet 01/22/2024 01/21/2025 Active Protonix 40 mg Tab-EC (2 sources) Start: 09-09-2019 take 1 tablet by mouth once daily 30 minutes before breakfast Protonix 40 mg Tab-EC 40 mg = 1 tab(s), Oral, Daily, Take 30 minutes before breakfast, # 30 tab(s), Refills(s) 1, Pharmacy: [facility] #[id number], 168, cm, 09/09/19 8:18:00 EDT, Height/Length Measured, [...] Translations: [Anxiety] Onset: 03-24-2020 09-13-2023 Chronic Asthma (20 sources) Unspecified asthma, uncomplicated; Translations: [Asthma] Onset: 03-24-2020 09-13-2023 Chronic Attention-deficit, conduct, and disruptive behavior disorders (2 sources) Attention deficit hyperactivity disorder 09-13-2023 Chronic Attention-deficit, conduct, and disruptive behavior disorders (15 sources) Attention deficit hyperactivity disorder, combined type; [...] without bleeding] Onset: 09-13-2023 Episodic Female infertility (14 sources) Female infertility; Translations: [Female infertility, unspecified] [...] Onset: 07-20-2023 07-20-2023 Episodic Other acquired deformities (2 sources) Acquired scoliosis 05-16-2013 Chronic Other aftercare (1 source) Other nursing home (current) drug therapy; Translations: [OTH ALF CURRENT DRUG THERAPY] Onset: 03-24-2020 Episodic Other and unspecified benign neoplasm (3 sources) Prolactinoma; Translations: [Benign neoplasm of pituitary gland] 07-11-2023 Episodic Other and unspecified benign neoplasm (1 source) Benign neoplasm of pituitary gland; 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)] Onset: 06-13-2023 Episodic Other connective tissue disease (9 sources) Muscle pain; Translations: [Myalgia, unspecified site] [...] vagina] 01-16-2024 Episodic Other female genital disorders (8 sources) Fallopian tube disorder; Translations: [Noninflammatory disorder [...] Chronic Other upper respiratory disease (2 sources) Vocal cord dysfunction 06-28-2011 Episodic Residual codes; [...] te Episodic/Chronic Genitourinary symptoms and ill-defined conditions (15 sources) Proteinuria; Translations: [Proteinuria, unspecified] Onset: 08-03-2010 12-21-2022 Episodic Inflammatory diseases of female pelvic organs (3 sources) Female pelvic peritoneal adhesions (postinfective); Translations: [Chronic vaginitis] Onset: 03-24-2020 09-13-2023 Episodic Other and unspecified benign neoplasm (2 sources) Benign neoplasm of pituitary gland Onset: 06-13-2023 09-13-2023 Episodic Unclassified (2 sources) Onset: 09-12-2012 Resolved: 12-13-2012 09-10-2014 Results Test Name Value Interpretation Reference Range [place] [address] Ultrasound Report Signed Patient: INDU ST MR#: [id number] : 1995 Acct:[id number] Age/Sex: 28 / F ADM Date: 04/08/24 Loc: US Attending Dr: Jade Ledbetter M.D. Ordering Physician: Jade Ledbetter M.D. Date of Service: 04/08/24 Procedure(s): US pelvis transvaginal Accession Number(s): [id number] cc: CAROLYNE EDMONDS ; Jade Ledbetter M.D. The [place] [id number] Patient Name: INDU ST MRN: [facility]:[id number] date: 1995 Sex: F Assigned Patient Location: US Current Patient Location: US Accession/Order Number: [id number] Exam Date: 04/08/2024 13:45 Report Date: 04/08/2024 14:39 At the request of: JADE LEDBETTER Procedure: US pelvis transvaginal EXAMINATION: US pelvis transvaginal HISTORY: Encounter for ART Procedure COMPARISON: No relevant comparison available. TECHNIQUE: Transabdominal and/or transvaginal sonographic examination was performed as indicated by examination type. FINDINGS: UTERUS: Normal size and appearance. Uterus size: 9.1 x 4.2 x 6.0 cm ENDOMETRIUM: Normal homogeneous appearance. Endometrial thickness: 2 mm RIGHT OVARY: Contains 9 follicles (9 mm follicles-1; 8 mm follicles-4; 5 mm follicles-1; 4 mm follicles-2; 3 mm follicles-1). Blood flow present within ovary on color Doppler. . Ovary size: 2.9 x 2.6 x 2.2 cm LEFT OVARY: Contains one 8 mm follicle. Blood flow present within ovary on color Doppler. . Ovary size: 1.4 x 1.7 x 2.3 cm CUL-DE-SAC: Unremarkable. No significant free fluid. BLADDER: Unremarkable. OTHER: None. US/US pelvis transvaginal IMPRESSION: 1. Thin endometrial lining, 2 mm. 2. Right ovary contains 9 small follicles as detailed above. 3. Left ovary contains one small follicle as detailed above. Electronically authenticated by: BRIAN MCGINNIS Date: 04/08/2024 14:39 Dictated By: Brian Mcginnis M.D. Signed By: 04/08/24 1442 DD/ 1439 TD/TT: Inspector And Hand Packager: [facility] Radiology, Radiologi MD de - 04/08/[address] [address] Ultrasound Report Signed Patient: INDU ST MR#: [id number] : 1995 Acct:[id number] Age/Sex: 28 / F ADM Date: 04/08/24 Loc: US Attending Dr: Jade Ledbetter M.D. Ordering Physician: Jade Ledbetter M.D. Date of Service: 04/08/24 Procedure(s): US pelvis transvaginal Accession Number(s): [id number] cc: CAROLYNE EDMONDS ; Jade Ledbetter M.D. [place] [id number] Patient Name: INDU ST MRN: [facility]:[id number] date: 1995 Sex: F Assigned Patient Location: US Current Patient Location: US Accession/Order Number: [id number] Exam Date: 04/08/2024 13:45 Report Date: 04/08/2024 14:39 At the request of: JADE LEDBETTER Procedure: US pelvis transvaginal EXAMINATION: US pelvis transvaginal HISTORY: Encounter for ART Procedure COMPARISON: No relevant comparison available. TECHNIQUE: Transabdominal and/or transvaginal sonographic examination was performed as indicated by examination type. FINDINGS: UTERUS: Normal size and appearance. Uterus size: 9.1 x 4.2 x 6.0 cm ENDOMETRIUM: Normal homogeneous appearance. Endometrial thickness: 2 mm RIGHT OVARY: Contains 9 follicles (9 mm follicles-1; 8 mm follicles-4; 5 mm follicles-1; 4 mm follicles-2; 3 mm follicles-1). Blood flow present within ovary on color Doppler. . Ovary size: 2.9 x 2.6 x 2.2 cm LEFT OVARY: Contains one 8 mm follicle. Blood flow present within ovary on color Doppler. . Ovary size: 1.4 x 1.7 x 2.3 cm CUL-DE-SAC: Unremarkable. No significant free fluid. BLADDER: Unremarkable. OTHER: None. US/US pelvis transvaginal IMPRESSION: 1. Thin endometrial lining, 2 mm. 2. Right ovary contains 9 small follicles as detailed above. 3. Left ovary contains one small follicle as detailed above. Electronically authenticated by: BRIAN MCGINNIS Date: 04/08/2024 14:39 Dictated By: Brian Mcginnis M.D. Signed By: 04/08/24 1442 DD/ 143 TD/TT: Inspector And Hand Packager: [facility] Radiology Study observation (narrative) [facility] US PELVIS TRANSVAGINALOrdere d By: Radiologist Radiology on 04-08-2024 [facility] Work Phone: MLR HEMOGLOBIN A1Con 025 Glucose [Mass/Vol] 105 mg/dL [facility] HbA1c (Bld) [Mass fraction] 5.3 % 4.5 - 6.2 % [facility] Comment on above: ADA RECOMMENDED LIMI T 4.0 - 6.0 ADA THERAPEUTIC TARGET < 7.0 ACTION SUGGESTED > 7.0 [facility] JESUS Individual Abson 024 Anti-Centro B Ab See Refr Report Invalid Interpretation Code [facility] Comment on above: Performed By: #### 2 [id number] #### [facility] [address] [place] [address] WRITTEN AUTHORIZATIONon 02-02 Written Authorization Comment Invalid Interpretation Code [facility] Comment on above: Result Comment: Writ ten Authorization Received. Authorization received from ORIGINAL ORDER 02-20-2024 Logged by Valentina Peters Performed at: [facility] [id number] PhD Randa Ochoa Performed By: #### 3 [id number] #### [facility] [address] [place] [address] RF Quanton 02-20-2024 Rheumatoid factor Qn 13.2 International_Unit/mL Invalid Interpretation Code <14.0 [facility] Comment on above: Result Comment: [facility] at: [facility] [address] [place] [address] [id number] PhD Randa Ochoa Performed By: #### 1 [id number] #### [facility] [address] [place] [address] CBC w/ Auto Diffon 4 Basophils/100 WBC (Bld) 0.3 % Normal 0.0-2.0 [facility] Comment on above: Performed By: #### 2 [id number] #### [facility] [address] [place] [address] Erythrocyte distribution width (RBC) [Ratio] 14.3 % High 10.9-14.2 [facility] Comment on above: Performed By: #### 2 [id number] #### [facility] [address] [place] [address] Hematocrit (Bld) [Volume fraction] 40.4 % Normal 34.0-46.0 [facility] Comment on above: Performed By: #### 2 [id number] #### [facility] [address] [place] [address] Lymphocytes/100 WBC (Bld) 16.1 % Normal 14.0-50.0 [facility] Comment on above: Performed By: #### 2 [id number] #### [facility] [address] [place] [address] Neutrophils/100 WBC (Bld) 75.3 % High 36.0-75.0 [facility] Comment on above: Performed By: #### 2 [id number] #### [facility] [address] [place] [address] Platelet mean volume (Bld) [Entitic vol] 8.5 fL Normal 6.4-10.8 [facility] Comment on above: Performed By: #### 2 [id number] #### [facility] [address] [place] [address] Basophils/Leukocytes Auto (Bld) [Pure # fraction] 0.0 E9/L Normal 0.0-0.2 [facility] Comment on above: Performed By: #### 2 [id number] #### [facility] [address] [place] [address] Eosinophils (Bld) [#/Vol] 0.0 E9/L Normal 0.0-0.5 [facility] Comment on above: Performed By: #### 2 [id number] #### [facility] [address] [place] [address] Eosinophils/100 WBC (Bld) 0.4 % Normal 0.0-8.0 [facility] Comment on above: Performed By: #### 2 [id number] #### [facility] [address] [place] [address] Hemoglobin (Bld) [Mass/Vol] 14.2 g/dL Normal 12.0-16.0 [facility] Comment on above: Performed By: #### 2 457231 #### [facility] [address] [place] [address] Lymphocytes (Bld) [#/Vol] 1.1 E9/L Normal 1.0-4.0 [facility] Comment on above: Performed By: #### 2 145525 #### [facility] [address] [place] [address] MCH (RBC) [Entitic mass] 30.4 pg Normal 27.0-34.0 [facility] Comment on above: Performed By: #### 2 [id number] #### [facility] [address] [place] [address] MCHC (RBC) [Mass/Vol] 35.1 g/dL Normal 31.4-36.0 [facility] Comment on above: Performed By: #### 2 [id number] #### [facility] [address] [place] [address] MCV (RBC) [Entitic vol] 86.7 fL Normal 80.0-100.0 [facility] Comment on above: Performed By: #### 2 645004 #### [facility] [address] [place] [address] Monocytes (Bld) [#/Vol] 0.5 E9/L Normal 0.2-1.0 [facility] Comment on above: Performed By: #### 2 199993 #### [facility] [address] [place] [address] Neutrophils (Bld) [#/Vol] 5.1 E9/L Normal 2.0-7.5 [facility] Comment on above: Performed By: #### 2 [id number] #### [facility] [address] [place] [address] [place] [address] Platelet 235.0 E9/L Normal 150.0-500.0 [facility] Comment on above: Performed By: #### 2 [id number] #### [facility] [address] [place] [address] RBC (Bld) [#/Vol] 4.7 E12/L Normal 4.3-5.9 [facility] Comment on above: Performed By: #### 2 [id number] #### [facility] [address] [place] [address] WBC corrected for nucl RBC Auto (Bld) [#/Vol] 6.8 E9/L Normal 4.0-11.0 [facility] Comment on above: Performed By: #### 2 [id number] #### [facility] [address] [place] [address] CHEMISTRYOrdered By: SYSTEM SYSTEM on 02-18-2024 Albumin [...] 02-18-2024 Albumin [Mass/Vol] 4.5 g/dL Normal 3.3-5.0 [facility] Comment on above: Performed By: #### 2 970857 #### [facility] [address] [place] [address] Albumin/Globulin (S) [Mass conc ratio] 1.6 Normal 1.1-2.2 [facility] Comment on above: Performed By: #### 2 032772 #### [facility] [address] [place] [address] ALP [Catalytic activity/Vol] 55 Int._Unit/L Normal 21-98 [facility] Comment on above: Performed By: #### 2 082181 #### [facility] [address] [place] [address] ALT No additional P-5'-P [Catalytic activity/Vol] 13 Int._Unit/L Normal 6-46 [facility] Comment on above: Performed By: #### 2 [id number] #### [facility] [address] [place] [address] Anion gap [Moles/Vol] 14 mmol/L Normal 6-16 [facility] Comment on above: Performed By: #### 2 897409 #### [facility] [address] [place] [address] AST [Catalytic activity/Vol] 13 Int._Unit/L Normal 5-43 [facility] Comment on above: Performed By: #### 2 417383 #### [facility] [address] [place] [address] Bilirubin [Mass/Vol] 0.5 mg/dL Normal 0.0-1.1 [facility] Comment on above: Performed By: #### 2 991451 #### [facility] [address] [place] [address] Calcium [Mass/Vol] 9.3 mg/dL Normal 8.9-11.1 [facility] Comment on above: Performed By: #### 2 825398 #### [facility] [address] [place] [address] Chloride [Moles/Vol] 103 mmol/L Normal 101-111 [facility] Comment on above: Performed By: #### 2 899056 #### [facility] [address] [place] [address] CO2 [Moles/Vol] 26 mmol/L Normal 21-31 [facility] Comment on above: Performed By: #### 2 408669 #### [facility] [address] [place] [address] Creatinine [Mass/Vol] 0.7 mg/dL Normal 0.5-1.3 [facility] Comment on above: Performed By: #### 2 919796 #### [facility] [address] [place] [address] Globulin (S) [Mass/Vol] 2.9 g/dL Normal 1.4-4.0 [facility] Comment on above: Performed By: #### 2 604435 #### [facility] [address] [place] [address] Glucose [Mass/Vol] 86 mg/dL Normal 55-199 [facility] Comment on above: Performed By: #### 2 755370 #### [facility] [address] [place] [address] Potassium [Moles/Vol] 4.0 mmol/L Normal 3.5-5.3 [facility] Comment on above: Performed By: #### 2 131303 #### [facility] [address] [place] [address] Protein [Mass/Vol] 7.4 g/dL Normal 6.0-7.8 [facility] Comment on above: Performed By: #### 2 944861 #### [facility] [address] [place] [address] Sodium [Moles/Vol] 139 mmol/L Normal 135-145 [facility] Comment on above: Performed By: #### 2 519125 #### [facility] [address] [place] [address] Urea nitrogen [Mass/Vol] 13 mg/dL Normal 5-21 [facility] Comment on above: Performed By: #### 2 225933 #### [facility] [address] [place] [address] Urea nitrogen/Creatinine [Mass ratio] 19 No Units Normal 10-20 [facility] Comment on above: Performed By: #### 2 101691 #### [facility] [address] [place] [address] [facility] CBC W/ AUTO DIFFon 02-02 EOSINOPHILS/100 LEUKOCYTES:NFR:PT:BLD:Q N:AUTOMATED COUNT 0.4 % 0.0 - 8.0 % [facility] EOSINOPHILS:NCNC:PT:BLD :QN: 0 [facility] BASOPHILS/LEUKOCYTES:NF R.DF:PT:BLD:QN:AUTOMATE D COUNT 0 [facility] ERYTHROCYTE MEAN CORPUSCULAR HEMOGLOBIN CONCENTRATION:MCNC:PT:R BC:QN 35.1 [facility] ERYTHROCYTE MEAN CORPUSCULAR HEMOGLOBIN:ENTMASS:PT:R BC:QN 30.4 pg 27.0 - 34.0 pg [facility] ERYTHROCYTE MEAN CORPUSCULAR VOLUME:ENTVOL:PT:RBC:QN :AUTOMATED COUNT 86.7 fL 80.0 - 100.0 fL [facility] ERYTHROCYTES:NCNC:PT:BL D:QN:AUTOMATED COUNT 4.7 [facility] HEMOGLOBIN:MCNC:PT:BLD: QN: 14.2 [facility] LEUKOCYTES 6.8 [facility] MONOCYTES:NCNC:PT:BLD:Q N:AUTOMATED COUNT 0.5 [facility] NEUTROPHILS:NCNC:PT:BLD :QN:AUTOMATED COUNT 5.1 [facility] Interpretation and review of laboratory results Abnormal [facility] LYMPHOCYTES:NCNC:PT:BLD :QN: 1.1 [facility] Platelets (Bld) [#/Vol] 235 10*3/uL [facility] Original Ordering Provider: MD [facility]ATOLOGYOrdered By: SYSTEM SYSTEM on 02-18-2024 Basophils/100 [...] mm/h Normal 0 - 34 mm/hr FT HemeAutoSS Sed Rate Automatedon 024 ESR (Bld) [Velocity] 14 mm/h Normal 0-[address] [facility] Comment on above: Performed By: #### 1 [id number] #### [facility] [address] [place] [address] eGFRon 02-18-2024 eGFR 120 mL/min/1.73 m2 Normal >=59 [facility] Comment on above: Performed By: #### 1 [id number] #### [facility] [address] [place] [address] ALL THYROID STIM HORMONEon 1 04-15-2023 TSH Qn 1.748 m[IU]/L [facility] No Panel Informationon 02-12 [facility]H PREG QUANT HCGon 024 HCG QUANTITATIVE <1 mIU/mL [facility] Comment on above: 5-50 0.2-1 WEEK 50-500 1-2 WEEKS 100-5,000 2-3 WEEKS 500-10,000 3-4 WEEKS 1,000-50,000 4-5 WEEKS 10,000-100,000 5-6 WEEKS 15,000-200,000 6-8 WEEKS 10,000-100,000 2-3 MONTHS [facility] PREG QUANT HCGon HCG QUANTITATIVE <1 mIU/mL [facility] Comment on above: 5-50 0.2-1 WEEK 50-500 1-2 WEEKS 100-5,000 2-3 WEEKS 500-10,000 3-4 WEEKS 1,000-50,000 4-5 WEEKS 10,000-100,000 5-6 WEEKS 15,000-200,000 6-8 WEEKS 10,000-100,000 2-3 MONTHS [facility] ALL PROGESTERONEon PROGESTERONE 10.8 ng/mL . [facility] Comment on above: Follicular phase 0.1 - 0.9 Luteal phase 1.8 - 23.9 Ovulation phase 0.1 - 12.0 First trimester 11.0 - 44.3 Second trimester 25.4 - 83.3 Third trimester 58.7 - 214.0 Postmenopausal 0.0 - 0.1 Performed at: [address] [id number] [employer] Cnc Machine Operator: Don Tolentino PhD, Phone: [phone] [facility] Surgical Pathology Reporton 10-17-2023 [place] [address]- Surgical Pathology Report Collected Date/Time: 10/15/2023 09:32 [...] is entirely submitted in one cassette. (DC) DC:[facility] Microscopic Description A-C: Microscopic examination performed unless gross only specified. The use of one or more reagents in the above tests is regulated as an analyte specific reagent (ASR). The test or tests are ordered following initial H&E microscopic examination. The performance characteristics were determined by the Laboratory of [facility]. They have not been cleared or approved by the US Food and Drug Administration. The FDA has determined that such clearance or approval is not necessary. These tests are used for clinical purposes. They should not be regarded as investigational or for research. Appropriate positive and negative controls are performed and are acceptable. Normal [facility] Comment on above: Performed By: #### 4 [id number] #### [facility] [address] [place] [address] Main OR Intraoperative Recor don 10-16-2023 Main OR Intraoperative Record Main OR Intraoperative Record IntraOp Document Type FT Summary Primary Physician: Zenia ELLISON, Alex Berry Finalized Date/Time: 10/16/23 12:11:53 Pt. Name: INDU ST Raudel/Sex: 1995 Female Med Rec #: [id number] Physician: Alex Knutson MD Financial #: [id number] Pt. Type: O Room/Bed: / Admit/Disch: 10/15/23 [...] RN, Promise Willis Role Performed Anesthesiologist of Solar Sales Consultant - Primary Scrub - Primary Record Time [...] Comments Last Modified By: Brennan WHITE, Kristen 10/15/23 09:40:17 Perioperative Protocols FT Pre-Care Text: [...] 2 - Clean-Contaminated Last Modified By: Kristen Aimn RN 10/15/23 09:39:26 General Case Data FT [...] signs and symptoms of infection General Comments: 0926-EGD completed/AW RN 927-Colonoscopy started/AW RN Skin Assessment (Pre Procedure) FT Pre-Care Text: Implements protective measures to prevent skin/ tissue injury due to thermal or mechanical sources Evaluates for signs and symptoms of physical injury to skin and tissue Entry 1 Skin Integrity Intact, [place], Warm, & Skin Abnormality No Dry Outcomes [...] and symptom (more content not included)... Normal [facility] B hCG Qualon 10-15-2023 Beta HCG ( test) Ql Negative Normal [facility] Comment on above: Performed By: #### 2 [id number] #### [facility] [address] [place] [address] Discharge Instructionson Discharge Instructions Discharge Instruc tions INDU ST :1995 Visit Date:10/15/2023 Inpatient Discharge Instructions Your Care Team Admitting Physician - Alex Knutson MD Referring Physician - Alex Knutson MD. Reason [...] weeks Comments: Call for any problems. Where: [address], [address] [place] [phone] Business (1) Medications What How Much When [...] MEDICATIONS Yo (more content not included)... Normal [facility] Comment on above: Result Comment: Elec tronically Signed By: Obi WHITE, Mery\.br\Date and Time Signed: 10/15/23 09:50 EDT Noemi [...] Daily, # 527 gm, Refills(s) 5, Pharmacy: [facility] #[id number], 167, cm, 09/13/23 14:57:00 EDT, Height/Length Dosing, 48.9, kg, 09/13/23 14:57:00 EDT, Weight Dosing Pantoprazole [address] Tab: 40 mg = 1 tab(s), Oral, Daily, # 30 tab(s), Refills(s) 4, Pharmacy: [facility] #[id number], 167, cm, 09/13/23 14:57:00 EDT, Height/Length Dosing, [...] Normal duodenum. Biopsies obtained Images Procedure images: Rec1_hd_video_2023_ [id number].jpg Rec1_hd_video_ [id number].jpg Rec1_hd_video_ [id number].jpg Rec1_hd_video_ [id number].jpg Rec1_hd_video_ [id number].jpg Rec1_hd_video_ [id number].jpg . Post-Procedure Complications: none. Estimated blood loss: minimal. Specimens: sent to pathology. Devices/ implants: none left in place. Impression and Plan mild gastropathy Recommendations: -Resume previous diet -Resume home medications -Await pathology results, follow in GI clinic in 1-2 after discharge Normal [facility] Comment on above: Other Comment: Griselda blanco Attachment - attachment storage system not supported [id number] Can be viewed in source system Missing Attachment - attachment storage system not supported [id number] Can be viewed in source system Missing Attachment - attachment storage system not supported [id number] Can be viewed in source system Missing Attachment - attachment storage system not supported [id number] Can be viewed in source system Missing Attachment - attachment storage system not supported [id number] Can be viewed in source system Missing Attachment - attachment storage system not supported [id number] Can be viewed in source system Main OR PACU I Recordon 10-03 Main OR PACU I Record Main OR PACU I Rec ord PACU Phase I Document Type FT Summary Primary Physician: Alex Knutson MD Finalized Date/Time: 10/15/23 10:19:29 Pt. Name: INDU ST./Sex: 1995 Female Med Rec #: [id number] Physician: Alex Knutson MD Financial #: [id number] Pt. Type: O Room/Bed: / Admit/Disch: 10/15/23 [...] By: Mery Crocker RN 10/15/23 10:19 Normal [facility] Main OR Preoperative Recordo n 10-15-2023 Main OR Preoperative Record Main OR Preoperative Record Holding Area Document Type FT Summary Primary Physician: lAex Knutson MD Finalized Date/Time: 10/15/23 07:13:13 Pt. Name: INDU ST/Sex: 1995 Female Med Rec #: [id number] Physician: Alex Knutson MD Financial #: [id number] Pt. Type: O Room/Bed: / Admit/Disch: 10/15/23 [...] By: Ofe Atkins RN 10/15/23 07:13 Normal [facility] SEROLOGYOrdered By: Germaine Sauer on 10-15-2023 Beta HCG ( test) Ql Negative (10/15/23 7:55 AM) Normal [facility] Man Sero Ambulatory Visit Summaryon 0 09-13-2023 [...] Follow-Up Appointments Sunday 9:00 AM EDT Where: [facility] Surgical Services Medications What How Much When Why Instructions New pantoprazole (Pantoprazole [address] Tab) 1 Tablets By Mouth Every day Weight loss Nausea and vomiting Heartburn Bipolar disorder Stress-related physiological response 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 Normal [facility] Gastroenterology Office/Clin ic Noteon 09-13-2023 Gastroenterology [...] Daily, # 30 tab(s), Refills(s) 4, Pharmacy: [facility] #[id number], 167, cm, 09/13/23 14:57:00 EDT, Height/Length Dosing, 48.9, kg, 09/13/23 14:57:00 EDT, Weight Dosing polyethylene glycol 3350, 17 gm, Oral, Daily, # 527 gm, Refills(s) 5, Pharmacy: [facility] #[id number], 167, cm, 09/13/23 14:57:00 EDT, Height/Length Dosing, 48.9, kg, 09/13/23 14:57:00 EDT, Weight Dosing Colonoscopy (Hospital Procedure) EGD Endoscopy (Hospital Procedure) 2. Nausea and vomiting (R11.2: Nausea with vomiting, unspecified) Ordered: pantoprazole, 40 mg = 1 tab(s), Oral, Daily, # 30 tab(s), Refills(s) 4, Pharmacy: [facility] #[id number], 167, cm, 09/13/23 14:57:00 EDT, Height/Length Dosing, 48.9, kg, 09/13/23 14:57:00 EDT, Weight Dosing polyethylene glycol 3350, 17 gm, Oral, Daily, # 527 gm, Refills(s) 5, Pharmacy: [facility] #[id number], 167, cm, 09/13/23 14:57:00 EDT, Height/Length Dosing, 48.9, kg, 09/13/23 14:57:00 EDT, Weight Dosing Colonoscopy (Hospital Procedure) EGD Endoscopy (Hospital Procedure) 3. Heartburn (R12: Heartburn) Ordered: pantoprazole, 40 mg = 1 tab(s), Oral, Daily, # 30 tab(s), Refills(s) 4, Pharmacy: [facility] #[id number], 167, cm, 09/13/23 14:57:00 EDT, Height/Length Dosing, 48.9, kg, 09/13/23 14:57:00 EDT, Weight Dosing polyethylene glycol 3350, 17 gm, Oral, Daily, # 527 gm, Refills(s) 5, Pharmacy: [facility] #[id number], 167, cm, 09/13/23 14:57:00 EDT, Height/Length Dosing, 48.9, kg, 09/13/23 14:57:00 EDT, Weight Dosing Colonoscopy (Hospital Procedure) EGD Endoscopy (Hospital Procedure) 4. Bipolar disorder (F31.9: Bipolar disorder, unspecified) Ordered: pantoprazole, 40 mg (more content not included)... Normal [facility] Comment on above: Result Comment: Elec tronically Signed By: Zenia ELLISON, Alex Berry\.br\Date and Time Signed: 09/13/23 15:22 EDT Angelic 08-14-2023 JOSEN Telephone (ENDOMN) -------- INDU ST ([id number]) 1995 F Date Time Provider Department 08/14/23 KARINA CUMMINGS During your visit today, we recorded the following information about you: Twyla Salcedo MA 08/14/2023 11:09 AM Signed Received MRI results completed 08/02/2023, scanned to chart Twyla Salcedo Medical Physics Professor II Endocrinology AND Metabolism [place] [facility] F20 AND X20 Allergies As of Date: [...] Status:Closed by TWYLA SALCEDO on 08/14/23 Normal [facility] CBC W Auto Differential pane l (Bld)on 07-20-2023 Basophils (Bld) [#/Vol] 0.03 10*3/uL [facility] Basophils/100 WBC (Bld) 0.3 % 0.0 - 2.0 % [facility] Eosinophils (Bld) [#/Vol] 0.00 10*3/uL [facility] Eosinophils/100 WBC (Bld) 0.0 % 0.0 - 6.0 % [facility] Erythrocyte distribution width (RBC) [Ratio] 14.5 % 11.5 - 14.5 % [facility] Hematocrit (Bld) [Volume fraction] 39.1 % 36.0 - 46.0 % [facility] Hemoglobin (Bld) [Mass/Vol] 13.5 g/dL 12.0 - 16.0 g/dL [facility] Immature granulocytes (Bld) [#/Vol] 0.03 10*3/uL [facility] Immature granulocytes/100 WBC (Bld) 0.3 % 0.0 - 0.9 % [facility] Comment on above: Immature Granulocyte Count (IG) includes promyelocytes, myelocytes and metamyelocytes but does not include bands. Percent differential counts (%) should be interpreted in the context of the absolute cell counts (cells/UL). Interpretation and review of laboratory results Abnormal [facility] Lymphocytes (Bld) [#/Vol] 0.98 10*3/uL Low [facility] Lymphocytes/100 WBC (Bld) 8.5 % 13.0 - 44.0 % [facility] MCH (RBC) [Entitic mass] 28.7 pg 26.0 - 34.0 pg [facility] MCHC (RBC) [Mass/Vol] 34.5 g/dL 32.0 - 36.0 g/dL [facility] MCV (RBC) [Entitic vol] 83 fL 80 - 100 fL [facility] Monocytes (Bld) [#/Vol] 0.13 10*3/uL [facility] Monocytes/100 WBC (Bld) 1.1 % 2.0 - 10.0 % [facility] Neutrophils (Bld) [#/Vol] 10.32 10*3/uL [facility] Comment on above: Percent differential counts (%) should be interpreted in the context of the absolute cell counts (cells/uL). Neutrophils/100 WBC (Bld) 89.8 % 40.0 - 80.0 % [facility] Nucleated RBC/100 WBC (Bld) [Ratio] 0.0 % [facility] Platelets (Bld) [#/Vol] 290 10*3/uL [facility] RBC (Bld) [#/Vol] 4.71 10*6/uL [facility] WBC (Bld) [#/Vol] 11.5 10*3/uL [facility] Basophils (Bld) [#/Vol] 0.03 x10*3/uL Normal 0.00-0.10 [facility] Comment on above: Performed By: #### 5 7021-8 #### JIMENA Mark ([id number]) [facility] ([facility]) [address] [place] [address] 87278 Basophils/100 WBC (Bld) 0.3 % Normal 0.0-2.0 [facility] Comment on above: Performed By: #### 5 7021-8 #### JIMENA Mark ([id number]) [facility] ([facility]) [address] [place] [address] Eosinophils (Bld) [#/Vol] 0.00 x10*3/uL Normal 0.00-0.70 [facility] Comment on above: Performed By: #### 5 7021-8 #### JIMENA Mark ([id number]) [facility] ([facility]) [address] [place] [address] Eosinophils/100 WBC (Bld) 0.0 % Normal 0.0-6.0 [facility] Comment on above: Performed By: #### 5 7021-8 #### JIMENA Mark ([id number]) [facility] ([facility]) [address] [place] [address] Erythrocyte distribution width (RBC) [Ratio] 14.5 % Normal 11.5-14.5 [facility] Comment on above: Performed By: #### 5 7021-8 #### JIMENA Mark ([id number]) [facility] ([facility]) [address] [place] [address] Hematocrit (Bld) [Volume fraction] 39.1 % Normal 36.0-46.0 [facility] Comment on above: Performed By: #### 5 7021-8 #### JIMENA Mark ([id number]) [facility] ([facility]) [address] [place] [address] Hemoglobin (Bld) [Mass/Vol] 13.5 g/dL Normal 12.0-16.0 [facility] Comment on above: Performed By: #### 5 7021-8 #### JIMENA Mark ([id number]) [facility] ([facility]) [address] [place] [address] Immature granulocytes (Bld) [#/Vol] 0.03 x10*3/uL Normal 0.00-0.70 [facility] Comment on above: Performed By: #### 5 7021-8 #### JIMENA Mark ([id number]) [facility] ([facility]) [address] [place] [address] Immature granulocytes/100 WBC (Bld) 0.3 % Normal 0.0-0.9 [facility] Comment on above: Result Comment: Yanet ture Granulocyte Count (IG) includes promyelocytes, myelocytes and metamyelocytes but does not include bands. Percent differential counts (%) should be interpreted in the context of the absolute cell counts (cells/UL). Performed By: #### 5 7021-8 #### JIMENA Mark ([id number]) [facility] ([facility]) [address] [place] [address] 25228 Lymphocytes (Bld) [#/Vol] 0.98 x10*3/uL Low 1.20-4.80 [facility] Comment on above: Performed By: #### 5 7021-8 #### JIMENA Mark ([id number]) [facility] ([facility]) [address] [place] [address] Lymphocytes/100 WBC (Bld) 8.5 % Normal 13.0-44.0 [facility] Comment on above: Performed By: #### 5 7021-8 #### JIMENA Mark ([id number]) [facility] ([facility]) [address] [place] [address] 52215 MCH (RBC) [Entitic mass] 28.7 pg Normal 26.0-34.0 [facility] Comment on above: Performed By: #### 5 7021-8 #### JIMENA Mark ([id number]) [facility] ([facility]) [address] [place] [address] 11334 MCHC (RBC) [Mass/Vol] 34.5 g/dL Normal 32.0-36.0 [facility] Comment on above: Performed By: #### 5 7021-8 #### JIMENA Mark ([id number]) [facility] ([facility]) [address] [place] [address] 85191 MCV (RBC) [Entitic vol] 83 fL Normal 80-100 [facility] Comment on above: Performed By: #### 5 7021-8 #### JIMENA Mark ([id number]) [facility] ([facility]) [address] [place] [address] 80736 Monocytes (Bld) [#/Vol] 0.13 x10*3/uL Normal 0.10-1.00 [facility] Comment on above: Performed By: #### 5 7021-8 #### JIMENA Mark ([id number]) [facility] ([facility]) [address] [place] [address] 63790 Monocytes/100 WBC (Bld) 1.1 % Normal 2.0-10.0 [facility] Comment on above: Performed By: #### 5 7021-8 #### JIMENA Mark ([id number]) [facility] ([facility]) [address] [place] [address] 64419 Neutrophils (Bld) [#/Vol] 10.32 x10*3/uL High 1.20-7.70 [facility] Comment on above: Result Comment: Perc ent differential counts (%) should be interpreted in the context of the absolute cell counts (cells/uL). Performed By: #### 5 7021-8 #### JIMENA Mark ([id number]) [facility] ([facility]) [address] [place] [address] 64148 Neutrophils/100 WBC (Bld) 89.8 % Normal 40.0-80.0 [facility] Comment on above: Performed By: #### 5 7021-8 #### JIMENA Mark ([id number]) [facility] ([facility]) [address] [place] [address] 02506 Nucleated RBC/100 WBC (Bld) [Ratio] 0.0 /100 WBCs Normal 0.0-0.0 [facility] Comment on above: Performed By: #### 5 7021-8 #### JIMENA Mark ([id number]) [facility] ([facility]) [address] [place] [address] 17621 Platelets (Bld) [#/Vol] 290 x10*3/uL Normal 150-450 [facility] Comment on above: Performed By: #### 5 7021-8 #### JIMENA Mark ([id number]) [facility] ([facility]) [address] [place] [address] 09603 RBC (Bld) [#/Vol] 4.71 x10*6/uL Normal 4.00-5.20 [facility] Comment on above: Performed By: #### 5 7021-8 #### JIMENA Mark ([id number]) [facility] ([facility]) [address] [place] [address] WBC (Bld) [#/Vol] 11.5 x10*3/uL High 4.4-11.3 [facility] Comment on above: Performed By: #### 5 7021-8 #### JIMENA Mark ([id number]) [facility] ([facility]) [address] [place] [address] CT CHEST ABDOMEN PELVIS W IV CONTRASTon 07-20-2023 CT CHEST ABDOMEN PELVIS W IV CONTRAST Interpreted By: Mag Santiago, STUDY: CT CHEST ABDOMEN PELVIS W IV CONTRAST; 07/20/2023 5:39 pm INDICATION: Signs/Symptoms:Persisten t vomiting, epigastric pain in the chest.. COMPARISON: Chest x-ray 07/20/2023. ACCESSION NUMBER(S): [id number] ORDERING CLINICIAN: ABIODUN OCHOA TECHNIQUE: Axial CT [...] Mag Santiago 07/20/2023 6:51 PM Dictation workstation: [id number] [facility] CT Chest and Abdomen and Pel [...] Mag Santiago 07/20/2023 6:51 PM Dictation workstation: [id number] Interpreted By: Mag Santiago, STUDY: CT CHEST ABDOMEN PELVIS W IV CONTRAST; 07/20/2023 5:39 pm INDICATION: Signs/Symptoms:Persisten t vomiting, epigastric pain in the chest.. COMPARISON: Chest x-ray 07/20/2023. ACCESSION NUMBER(S): [id number] ORDERING CLINICIAN: ABIODUN OCHOA TECHNIQUE: Axial CT [...] chest.. COMPARISON: Chest x-ray 07/20/2023. ACCESSION NUMBER(S): [id number] ORDERING CLINICIAN: ABIODUN OCHOA TECHNIQUE: Axial CT [...] Mag Santiago 07/20/2023 6:51 PM Dictation workstation: [id number] [facility] Work Phone: Radiology Study observation (narrative) [facility] Work Phone: CT Chest and Abdomen and Pel vis W contrast IVOrdered By: Mag Santiago on 07-20-2023 [facility] Work Phone: Choriogonadotropin.beta subu niton 07-20-2023 HCG.beta subunit Qn m[IU]/mL Normal <5 [facility] Comment on above: Order Comment: Total HCG measurement is performed using the Jade Saleem Access Immunoassay which detects intact HCG and free beta HCG subunit. This test is not indicated for use as a tumor marker. HCG testing is performed using a different test methodology at [facility] than other [facility]. Direct result comparison should only be made within the same method. Performed By: #### 2 1198-7 #### JIMENA Mark ([id number]) [facility] ([facility]) [address] [place], [place] [phone] Comprehensive metabolic 2000 panelon 07-20-2023 Albumin BCP dye [Mass/Vol] 4.7 g/dL 3.4 - 5.0 g/dL [facility] ALP [Catalytic activity/Vol] 47 U/L 33 - 110 U/L [facility] ALT With P-5'-P [Catalytic activity/Vol] 14 U/L 7 - 45 U/L [facility] Comment on above: Patients treated wit h Sulfasalazine may generate falsely decreased results for ALT. Anion gap [Moles/Vol] 18 mmol/L 10 - 2 0 mmol/L [facility] AST With P-5'-P [Catalytic activity/Vol] 15 U/L 9 - 39 U/L [facility] Bilirubin [Mass/Vol] 0.6 mg/dL 0.0 - 1 .2 mg/dL [facility] Calcium [Mass/Vol] 9.8 mg/dL 8.6 - 10. 3 mg/dL [facility] Chloride [Moles/Vol] 105 mmol/L 98 - 10 7 mmol/L [facility] CO2 [Moles/Vol] 19 mmol/L Low 21 - 32 mmol/L [facility] Creatinine [Mass/Vol] 0.77 mg/dL 0.50 - 1.05 mg/dL [facility] eGFR - PINF [facility] Comment on above: Calculations of lesli mated GFR are performed using the 2020 CKD-EPI Study Refit equation without the race variable for the IDMS-Traceable creatinine methods. https://jasn.asnjournals.org/content/early//ASN.2020 206572 Glucose [Mass/Vol] 147 mg/dL High 74 - 99 mg/dL [facility] Interpretation and review of laboratory results Abnormal [facility] Potassium [Moles/Vol] 3.8 mmol/L 3.5 - 5.3 mmol/L [facility] Protein [Mass/Vol] 7.3 g/dL 6.4 - 8.2 g/dL [facility] Sodium [Moles/Vol] 138 mmol/L 136 - 145 mmol/L [facility] Urea nitrogen [Mass/Vol] 15 mg/dL 6 - 23 mg/dL [facility] Albumin BCP dye [Mass/Vol] 4.7 g/dL Normal 3.4-5.0 [facility] Comment on above: Performed By: #### 2 4323-8 #### JIMENA Mark ([id number]) [facility] ([facility]) [address] [place] [address] ALP [Catalytic activity/Vol] 47 U/L Normal 33-110 [facility] Comment on above: Performed By: #### 2 4323-8 #### JIMENA Mark ([id number]) [facility] ([facility]) [address] [place] [address] 49427 ALT With P-5'-P [Catalytic activity/Vol] 14 U/L Normal 7-45 [facility] Comment on above: Result Comment: Edel ents treated with Sulfasalazine may generate falsely decreased results for ALT. Performed By: #### 2 4323-8 #### JIMENA Mark ([id number]) [facility] ([facility]) [address] [place] [address] 85814 Anion gap [Moles/Vol] 18 mmol/L Normal 10-20 [facility] Comment on above: Performed By: #### 2 4323-8 #### JIMENA Mark ([id number]) [facility] ([facility]) [address] [place] [address] 44087 AST With P-5'-P [Catalytic activity/Vol] 15 U/L Normal 9-39 [facility] Comment on above: Performed By: #### 2 4323-8 #### JIMENA Mark ([id number]) [facility] ([facility]) [address] [place] [address] 58469 Bilirubin [Mass/Vol] 0.6 mg/dL Normal 0.0-1.2 [facility] Comment on above: Performed By: #### 2 4323-8 #### JIMENA Mark ([id number]) [facility] ([facility]) [address] [place] [address] 38748 Calcium [Mass/Vol] 9.8 mg/dL Normal 8.6-10.3 [facility] Comment on above: Performed By: #### 2 4323-8 #### JIMENA Mark ([id number]) [facility] ([facility]) [address] [place] [address] 67941 Chloride [Moles/Vol] 105 mmol/L Normal 98-107 [facility] Comment on above: Performed By: #### 2 4323-8 #### JIMENA Mark ([id number]) [facility] ([facility]) [address] [place] [address] 49468 CO2 [Moles/Vol] 19 mmol/L Low 21-32 [facility] Comment on above: Performed By: #### 2 4323-8 #### JIMENA Mark ([id number]) [facility] ([facility]) [address] [place] [address] 46611 Creatinine [Mass/Vol] 0.77 mg/dL Normal 0.50-1.05 [facility] Comment on above: Performed By: #### 2 4323-8 #### JIMENA Mark ([id number]) [facility] ([facility]) [address] [place] [address] 29790 GFR/1.73 sq M.predicted MDRD (S/P/Bld) [Vol rate/Area] mL/min/{1.73_m2} Normal >60 [facility] Comment on above: Result Comment: Calc ulations of estimated GFR are performed using the 2020 CKD-EPI Study Refit equation without the race variable for the IDMS-Traceable creatinine methods. https://jasn.asnjournals.org/content/early//ASN.2020 466934 Performed By: #### 2 4323-8 #### JIMENA Mark ([id number]) [facility] ([facility]) [address] [place] [address] 84643 Glucose [Mass/Vol] 147 mg/dL High 74-99 [facility] Comment on above: Performed By: #### 2 4323-8 #### JIMENA Mark ([id number]) [facility] ([facility]) [address] [place] [address] 67382 Potassium [Moles/Vol] 3.8 mmol/L Normal 3.5-5.3 [facility] Comment on above: Performed By: #### 2 4323-8 #### JIMENA Mark ([id number]) [facility] ([facility]) [address] [place] [address] 52664 Protein [Mass/Vol] 7.3 g/dL Normal 6.4-8.2 [facility] Comment on above: Performed By: #### 2 4323-8 #### JIMENA Mark ([id number]) [facility] ([facility]) [address] [place] [address] 55430 Sodium [Moles/Vol] 138 mmol/L Normal 136-145 [facility] Comment on above: Performed By: #### 2 4323-8 #### JIMENA Mark ([id number]) [facility] ([facility]) [address] [place] [address] 31939 Urea nitrogen [Mass/Vol] 15 mg/dL Normal 6-23 [facility] Comment on above: Performed By: #### 2 4323-8 #### JIMENA Mark ([id number]) [facility] ([facility]) [address] [place] [address] DRUG SCREEN,URINEon 07-20-19 24 Amphetamines Screen Ql (U) Negative Normal Presumptive Negative [facility] Comment on above: Order Comment: Drug screen results are presumptive and should not be used to assess compliance with prescribed medication. Contact the performing [facility] laboratory to add-on definitive confirmatory testing [...] By: #### D RUG3 #### JIMENA Mark ([id number]) [facility] ([facility]) [address] [place], [place] [phone] Barbiturates Screen Ql (U) Negative Normal Presumptive Negative [facility] Comment on above: Order Comment: Drug screen results are presumptive and should not be used to assess compliance with prescribed medication. Contact the performing [facility] laboratory to add-on definitive confirmatory testing [...] By: #### D RUG3 #### JIMENA Mark ([id number]) [facility] ([facility]) [address] [place] [address] 15048 Benzodiazepines Ql (U) Negative Normal Presu mptive Negative [facility] Comment on above: Order Comment: Drug screen results are presumptive and should not be used to assess compliance with prescribed medication. Contact the performing [facility] laboratory to add-on definitive confirmatory testing [...] By: #### D RUG3 #### JIMENA Mark ([id number]) [facility] ([facility]) [address] [place] [address] 02680 Benzoylecgonine Screen Ql (U) Negative Normal Presumptive Negative [facility] Comment on above: Order Comment: Drug screen results are presumptive and should not be used to assess compliance with prescribed medication. Contact the performing [facility] laboratory to add-on definitive confirmatory testing [...] By: #### D RUG3 #### JIMENA Mark ([id number]) [facility] ([facility]) [address] [place] [address] 75154 Cannabinoids Screen Ql (U) Positive Abnormal Presumptive Negative [facility] Comment on above: Order Comment: Drug screen results are presumptive and should not be used to assess compliance with prescribed medication. Contact the performing [facility] laboratory to add-on definitive confirmatory testing [...] By: #### D RUG3 #### JIMENA Mark ([id number]) [facility] ([facility]) [address] [place] [address]248 fentaNYL+Norfentanyl Screen Ql (U) Negative Normal Presumptive Negative [facility] Comment on above: Order Comment: Drug screen results are presumptive and should not be used to assess compliance with prescribed medication. Contact the performing [facility] laboratory to add-on definitive confirmatory testing [...] By: #### D RUG3 #### JIMENA Mark ([id number]) [facility] ([facility]) [address] [place], [place] [id number] Methadone Screen Ql (U) Negative Normal Pres umptive Negative [facility] Comment on above: Order Comment: Drug screen results are presumptive and should not be used to assess compliance with prescribed medication. Contact the performing [facility] laboratory to add-on definitive confirmatory testing [...] CUTO FF LEVEL: 150 NG/ML The metabolite G-nnlsk-qsehpvmsmtxjgu (LAAM) is not detected by this method in concentrations that would be found in the urine of patients on LAAM therapy. Performed By: #### D RUG3 #### JIMENA Mark ([id number]) [facility] ([facility]) [address] [place] [address] 24317 Opiates Screen Ql (U) Negative Normal Presum ptive Negative [facility] Comment on above: Order Comment: Drug screen results are presumptive and should not be used to assess compliance with prescribed medication. Contact the performing [facility] laboratory to add-on definitive confirmatory testing [...] By: #### Kobi RUG3 #### JIMENA Mark ([id number]) [facility] ([facility]) [address] [place] [address]85 oxyCODONE+oxyMORphone Screen Ql (U) Negative Normal Presumptive Negative [facility] Comment on above: Order Comment: Drug screen results are presumptive and should not be used to assess compliance with prescribed medication. Contact the performing [facility] laboratory to add-on definitive confirmatory testing [...] oxycodone and oxymorphone. Performed By: #### Kobi RUG3 #### JIMENA Mark ([id number]) [facility] ([facility]) [address] [place] [address] Phencyclidine Ql (U) Negative Normal Presump tive Negative [facility] Comment on above: Order Comment: Drug screen results are presumptive and should not be used to assess compliance with prescribed medication. Contact the performing [facility] laboratory to add-on definitive confirmatory testing [...] reported with dextromethorphan. Performed By: #### D ANSELMO3 #### JIMENA Mark ([id number]) [facility] ([facility]) [address] [place] [address] Drug Screen, Urineon 024 Amphetamines Screen Ql (U) Negative Presumptive Negative [facility] Comment on above: CUTOFF LEVEL: 500 NG /ML Cross-reactivity has been reported with high concentrations of the following drugs: buproprion, chloroquine, chlorpromazine, ephedrine, mephentermine, fenfluramine, phentermine, phenylpropanolamine, pseudoephedrine, and propranolol. Barbiturates Screen Ql (U) Negative Presumptive Negative [facility] Comment on above: CUTOFF LEVEL: 200 NG /ML Benzodiazepines Ql (U) Negative Presu mptive Negative [facility] Comment on above: CUTOFF LEVEL: 200 NG /ML Benzoylecgonine Screen Ql (U) Negative Presumptive Negative [facility] Comment on above: CUTOFF LEVEL: 150 NG /ML Cannabinoids Screen Ql (U) Positive Abnormal Presumptive Negative [facility] Comment on above: CUTOFF LEVEL: 50 NG/ ML fentaNYL+Norfentanyl Screen Ql (U) Negative Presumptive Negative [facility] Comment on above: CUTOFF LEVEL: 5 NG/M L Interpretation and review of laboratory results Abnormal [facility] Methadone Screen Ql (U) Negative Pres umptive Negative [facility] Comment on above: CUTOFF LEVEL: 150 NG /ML The metabolite Y-dfwri-qkwqgqpowhfdcq (LAAM) is not detected by this method in concentrations that would be found in the urine of patients on LAAM therapy. Opiates Screen Ql (U) Negative Presum ptive Negative [facility] Comment on above: CUTOFF LEVEL: 300 NG /ML The opiate screen does not detect fentanyl, meperidine, or tramadol. Oxycodone is not consistently detected (refer to Oxycodone Screen, Urine result). oxyCODONE+oxyMORphone Screen Ql (U) Negative Presumptive Negative [facility] Comment on above: CUTOFF LEVEL: 100 NG /ML This test will accurately detect both oxycodone and oxymorphone. Phencyclidine Ql (U) Negative Presump tive Negative [facility] Comment on above: CUTOFF LEVEL: 25 NG/ ML Cross-reactivity has been reported with dextromethorphan. Drug screen results are presumptive and should not be used to assess compliance with prescribed medication. Contact the performing [facility] laboratory to add-on definitive confirmatory testing [...] be directed to the laboratory medical directors. [facility] ECG 12-LEADon 07-20-2023 ECG 12-LEAD Ventricular Rate 68 Atrial Rate 67 P-R Interval 110 QRS Duration 126 Q-T Interval 419 QTC Calculation(Bazett) 446 P Plummer 82 R Plummer 77 T Plummer 67 QRS Count 11 Q Onset 249 T Offset 459 QTC Fredericia 437 Diagnosis Sinus rhythm Borderline short FL interval Nonspecific intraventricular conduction delay ST elev, probable normal early repol pattern See ED provider note for full interpretation and clinical correlation Confirmed by Lynsey Luna ([id number]) on 07/28/2023 12:23:14 PM Normal [facility] HCG.beta subunit Qnon 2023 Interpretation and review of laboratory results Normal [facility] Total HCG measuremen t is performed using the Jade Accord Access Immunoassay which detects intact HCG and free beta HCG subunit. This test is not indicated for use as a tumor marker. HCG testing is performed using a different test methodology at [facility] than other [facility]. Direct result comparison should only be made within the same method. [facility] Human Chorionic Gonadotropin , Serum Quantitativeon 07-20-2023 HCG.beta subunit Qn NINF Unive [facility] Lactateon 07-20-2023 Lactate [Moles/Vol] 1.4 mmol/L 0.4 - 2. 0 mmol/L [facility] Lactate [Moles/Vol] 1.4 mmol/L Normal 0.4-2.0 [facility] Comment on above: Order Comment: Venip uncture immediately after or during the administration of Metamizole may lead to falsely low results. Testing should be performed immediately prior to Metamizole dosing. Performed By: #### 2 524-7 #### JIMENA Mark ([id number]) [facility] ([facility]) [address] [place] [address]66 Lactate [Moles/Vol] 2.2 mmol/L High 0.4 - 2. 0 mmol/L [facility] Lactate [Moles/Vol] 2.2 mmol/L High 0.4-2.0 [facility] Comment on above: Order Comment: Venip uncture immediately after or during the administration of Metamizole may lead to falsely low results. Testing should be performed immediately prior to Metamizole dosing. Performed By: #### 2 524-7 #### JIMENA Mark ([id number]) [facility] ([facility]) [address] [place] [address] 93358 Lactate [Moles/Vol]on 2023 Interpretation and review of laboratory results Normal [facility] Venipuncture immedia tely after or during the administration of Metamizole may lead to falsely low results. Testing should be performed immediately prior to Metamizole dosing. [facility] Interpretation and review of laboratory results Abnormal [facility] Venipuncture immedia tely after or during the administration of Metamizole may lead to falsely low results. Testing should be performed immediately prior to Metamizole dosing. [facility] Lipaseon 07-20-2023 Lipase [Catalytic activity/Vol] 10 U/L 9 - 82 U/L [facility] Lipase [Catalytic activity/V ol]on 07-20-2023 Interpretation and review of laboratory results Normal [facility] Venipuncture immedia tely after or during the administration of Metamizole may lead to falsely low results. Testing should be performed immediately prior to Metamizole dosing. [facility] Triacylglycerol lipaseon Lipase [Catalytic activity/Vol] 10 U/L Normal 9-82 [facility] Comment on above: Order Comment: Venip uncture immediately after or during the administration of Metamizole may lead to falsely low results. Testing should be performed immediately prior to Metamizole dosing. Performed By: #### 3 040-3 #### JIMENA Mark ([id number]) [facility] ([facility]) [address] [place] [address] 42143 Tropinin I.cardiac panel Hig h sensitivity methodon 07-20-2023 Interpretation and review of laboratory results Normal [facility] Less than 99th percentile of normal [...] using a different testing methodology at [facility] than at other [facility]. Direct result comparisons should only be made within the same method. [facility] Troponin I, High Sensitivity on 07-20-2023 Tropinin I.cardiac panel High sensitivity method ng/L 0 - 13 ng/L [facility] Troponin I.cardiac panelon 0 07-20-2023 Tropinin I.cardiac panel High sensitivity method <3 Normal 0-13 [facility] Comment on above: Order Comment: Venip uncture immediately after or during the administration of Metamizole may lead to falsely low results. Testing should be performed immediately prior to Metamizole dosing. Performed By: #### 2 524-7 #### JIMENA Mark ([id number]) [facility] ([facility]) [address] [place] [address] 94966 Urinalysis complete W Reflex Culture panel (U)on 07-20-2023 Appearance (U) Hazy Abnormal Clear [facility] Bilirubin (U) [Mass/Vol] Negative NEGATIVE [facility] Color (U) Yellow Straw, Yellow [facility] Epithelial cells.squamous Auto (Urine sed) [#/Area] 1-9 (SPARSE) Reference range not established. /HPF [facility] Glucose Auto test strip (U) [Mass/Vol] Negative NEGATIVE mg/dL [facility] Interpretation and review of laboratory results Abnormal [facility] Ketones (U) [Mass/Vol] 80 (2+) Abnormal NEGAT JAMES mg/dL [facility] Leukocyte esterase Auto test strip Ql (U) Negative NEGATIVE [facility] Mucus Auto (Urine sed) [#/Area] 4+ Reference range not established. /LPF [facility] Nitrite Auto test strip Ql (U) Negative NEGATIVE [facility] pH (U) 9.0 [pH] Abnormal 5.0, 5.5, 6.0, 6.5, 7.0, 7.5, 8.0 [facility] Protein (U) [Mass/Vol] >=500 (3+) Abnormal NEGAT JAMES mg/dL [facility] RBC (U) [#/Vol] Negative NEGATIVE [facility] RBC Auto (Urine sed) [#/Area] 1-2 NONE, 1-2, 3-5 /HPF [facility] Specific gravity (U) [Rel density] 1.025 1.005 - 1.035 [facility] Urobilinogen (U) [Mass/Vol] mg/dL NINF - 2.0 mg/dL [facility] WBC Auto (Urine sed) [#/Area] 1-5 1-5, NONE /HPF [facility] Yeast.budding Computer assisted (U) [#/Area] PRESENT Abnormal NONE /HPF [facility] Appearance (U) Hazy Normal Clear [facility] Comment on above: Performed By: #### 5 8077-9 #### JIMENA Mark ([id number]) [facility] ([facility]) [address] [place] [address] Bilirubin (U) [Mass/Vol] Negative Normal NEGATIVE [facility] Comment on above: Performed By: #### 5 8077-9 #### JIMENA Mark ([id number]) [facility] ([facility]) [address] [place] [address] Color (U) Yellow Normal Straw, Yellow [facility] Comment on above: Performed By: #### 5 8077-9 #### JIMENA Mark ([id number]) [facility] ([facility]) [address] [place] [address] Epithelial cells.squamous Auto (Urine sed) [#/Area] 1-9 (SPARSE) Normal Reference range not established. [facility] Comment on above: Performed By: #### 5 8077-9 #### JIMENA Mark ([id number]) [facility] ([facility]) [address] [place] [address] Glucose Auto test strip (U) [Mass/Vol] Negative Normal NEGATIVE [facility] Comment on above: Performed By: #### 5 8077-9 #### JIMENA Mark ([id number]) [facility] ([facility]) [address] [place] [address] Ketones (U) [Mass/Vol] 80 (2+) Abnormal NEGATIVE Un [facility] Comment on above: Performed By: #### 5 8077-9 #### JIMENA Mark ([id number]) [facility] ([facility]) [address] [place] [address] Leukocyte esterase Auto test strip Ql (U) Negative Normal NEGATIVE [facility] Comment on above: Performed By: #### 5 8077-9 #### JIMENA Mark ([id number]) [facility] ([facility]) [address] [place] [address] Mucus Auto (Urine sed) [#/Area] 4+ /LPF Normal Reference range not established. [facility] Comment on above: Performed By: #### 5 8077-9 #### JIMENA Mark ([id number]) [facility] ([facility]) [address] [place] [address] Nitrite Auto test strip Ql (U) Negative Normal NEGATIVE [facility] Comment on above: Performed By: #### 5 8077-9 #### JIMENA Mark ([id number]) [facility] ([facility]) [address] [place] [address] pH (U) 9.0 [pH] Normal 5.0, 5.5, 6.0, 6.5, 7.0, 7.5, 8.0 [facility] Comment on above: Performed By: #### 5 8077-9 #### JIMENA Mark ([id number]) [facility] ([facility]) [address] [place] [address] Protein (U) [Mass/Vol] >=500 (3+) Normal NEGATIVE [facility] Comment on above: Performed By: #### 5 8077-9 #### JIMENA Mark ([id number]) [facility] ([facility]) [address] [place] [address] 38466 RBC (U) [#/Vol] Negative Normal NEGATIVE [facility] Comment on above: Performed By: #### 5 8077-9 #### JIMENA Mark ([id number]) [facility] ([facility]) [address] [place] [address] RBC Auto (Urine sed) [#/Area] 1-2 Normal NONE, 1-2, 3-5 [facility] Comment on above: Performed By: #### 5 8077-9 #### JIMENA Mark ([id number]) [facility] ([facility]) [address] [place] [address] Specific gravity (U) [Rel density] 1.025 Normal 1.005-1.035 [facility] Comment on above: Performed By: #### 5 8077-9 #### JIMENA Mark ([id number]) [facility] ([facility]) [address] [place] [address] Urobilinogen (U) [Mass/Vol] mg/dL Normal <2.0 [facility] Comment on above: Performed By: #### 5 8077-9 #### JIMENA Mark ([id number]) [facility] ([facility]) [address] [place] [address] WBC Auto (Urine sed) [#/Area] 1-5 Normal 1-5, NONE [facility] Comment on above: Performed By: #### 5 8077-9 #### JIMENA Mark ([id number]) [facility] ([facility]) [address] [place] [address] Yeast.budding Computer assisted (U) [#/Area] PRESENT Abnormal NONE [facility] Comment on above: Performed By: #### 5 8077-9 #### JIMENA Mark ([id number]) [facility] ([facility]) [address] [place] [address] XR CHEST 1 VIEWon 07-20-2023 XR CHEST 1 VIEW Interpreted By: Salina Hall, STUDY: XR CHEST 1 VIEW; 07/20/2023 4:05 pm INDICATION: Signs/Symptoms:cp. COMPARISON: None. ACCESSION NUMBER(S): [id number] ORDERING CLINICIAN: ABIODUN OCHOA FINDINGS: Heart is normal in size. There is no consolidation or pleural fluid. The mediastinum and bones are unremarkable. There are bilateral nipple shadows. COMPARISON OF FINDING: IMPRESSION: No acute cardiopulmonary disease. MACRO: none Signed by: Salina Stanton 07/20/2023 4:17 PM Dictation workstation: [id number] Normal [facility] XR Chest Single viewon 07-19 No acute cardiopulmo nary disease. MACRO: none Signed by: Salina Stanton 07/20/2023 4:17 PM Dictation workstation: [id number] [facility] MM[facility]AL Interpreted By: Salina Hall, STUDY: XR CHEST 1 VIEW; 07/20/2023 4:05 pm INDICATION: Signs/Symptoms:cp. COMPARISON: None. ACCESSION NUMBER(S): [id number] ORDERING CLINICIAN: ABIODUN OCHOA FINDINGS: Heart is normal in size. There is no consolidation or pleural fluid. The mediastinum and bones are unremarkable. There are bilateral nipple shadows. COMPARISON OF FINDING: [facility] Salina Stanton MD - 07/20/2023 Interpreted By: Salina Stanton, STUDY: XR CHEST 1 VIEW; 07/20/2023 4:05 pm INDICATION: Signs/Symptoms:cp. COMPARISON: None. ACCESSION NUMBER(S): [id number] ORDERING CLINICIAN: ABIODUN OCHOA FINDINGS: Heart is normal in size. There is no consolidation or pleural fluid. The mediastinum and bones are unremarkable. There are bilateral nipple shadows. COMPARISON OF FINDING: IMPRESSION: No acute cardiopulmonary disease. MACRO: none Signed by: Salina Stanton 07/20/2023 4:17 PM Dictation workstation: [id number] [facility] Work Phone: Radiology Study observation (narrative) [facility] Work Phone: XR Chest Single viewOrdered By: Salina Stanton on 07-20-2023 [facility] Work Phone: Cytology Cervical or vaginal smear or scraping studyon 03-19-2023 [facility] XR HYSTEROSALPINGOGRAMon XR HYSTEROSALPINGOGRAM * * [...] nondilated tubes. No spillage. IMPRESSION: Please see INVESTIGATION SPECIALIST report for assessment of real-time findings. Inspector And Hand Packager: PSCB Transcribe Date/Time: Jan 20 2021 1:37P Dictated by : DAYANNA LEROY MD This examination was interpreted and the report reviewed and electronically signed by: DAYANNA LEROY MD on Jan 20 2021 1:45PM EST [id number] Normal [facility] URon 03-22-2020 , QUAL Negative Normal NEGATIVE [facility] Comment on above: Performed By: #### P REGU #### [facility] [address] [place], [place] [address] Juany Mccarthy Covid-19 PCR ([facility])on 02-02 Covid-19 PCR DETECTED Abnormal NOT DETECTED [facility] Comment on above: Result Comment: This test is not yet approved or cleared by the [place] FDA. When there are no FDA-approved or cleared tests available, and other criteria are met, FDA can make tests available under an emergency access mechanism called an Emergency Use Authorization (EUA). The EUA for this test is supported by the Lead Web Application Developer of Health and Human Service's (HHS's) declaration [...] used). Performed By: #### C VDTBH #### [facility] [address] [place], [place] [address] Juany Mccarthy EUA Statement SEE BELOW Normal [facility] Comment on above: Result Comment: This test is not yet approved or cleared by the [place] FDA. When there are no FDA-approved or cleared tests available, and other criteria are met, FDA can make tests available under an emergency access mechanism called an Emergency Use Authorization (EUA). The EUA for this test is supported by the [place] of Health and Human Service?s (HHS?s) declaration [...] SARS-CoV-2. Performed By: #### C VDTBH #### [facility] [address] [place] [address] Juany Mccarthy Vital Signs Date Time Vital Sign Value Performing Clinician Facility 12-03-2023 08:43-0400 Body height 167.6 cm Uriel Halina DO Work Phone: [facility] 12-03-2023 08:43-0400 Body mass index (BMI) [Ratio] 17.59 kg/m2 Uriel Halina DO Work Phone: [facility] 12-03-2023 08:43-0400 Body weight 49.44 kg Uriel Halina DO Work Phone: [facility] 12-03-2023 08:43-0400 Diastolic blood pressure 68 mm[Hg] Uriel Halina DO Work Phone: [facility] 12-03-2023 08:43-0400 Systolic blood pressure 102 mm[Hg] Uriel Halina DO Work Phone: [facility] 10-15-2023 10:05-0400 Blood Pressure Location Roomd [employer] [facility] 10-15-2023 10:05-0400 Diastolic blood pressure 74 mm[Hg] Mohamad [employer] [facility] 10-15-2023 10:05-0400 Heart rate 66 /min Mohamad Mouchli [facility] 10-15-2023 10:05-0400 Mean blood pressure 87 mm[Hg] Mohamad Mouchli [facility] 10-15-2023 10:05-0400 Respiratory rate 19 /min Mohamad Mouchli [facility] 10-15-2023 10:05-0400 SaO2% (BldA) [Mass fraction] 97 % Mohamad Mouchli [facility] 10-15-2023 10:05-0400 Systolic blood pressure 112 mm[Hg] Mohamad Mouchli [facility] 10-15-2023 09:55-0400 Blood Pressure Location Mohamad Mouchli [facility] 10-15-2023 09:55-0400 Diastolic blood pressure 57 mm[Hg] Mohamad Mouchli [facility] 10-15-2023 09:55-0400 Heart rate 57 /min Mohamad Mouchli [facility] 10-15-2023 09:55-0400 Mean blood pressure 71 mm[Hg] Mohamad Mouchli [facility] 10-15-2023 09:55-0400 Respiratory rate 19 /min Mohamad Mouchli [facility] 10-15-2023 09:55-0400 SaO2% (BldA) [Mass fraction] 100 % Mohamad Mouchli [facility] 10-15-2023 09:55-0400 Systolic blood pressure 100 mm[Hg] Mohamad Mouchli [facility] 10-15-2023 09:50-0400 Blood Pressure Location Mohamad Mouchli [facility] 10-15-2023 09:50-0400 Diastolic blood pressure 73 mm[Hg] Mohamad Mouchli [facility] 10-15-2023 09:50-0400 Heart rate 90 /min Mohamad Mouchli [facility] 10-15-2023 09:50-0400 Mean blood pressure 89 mm[Hg] Mohamad Mouchli [facility] 10-15-2023 09:50-0400 Respiratory rate 13 /min Mohamad Mouchli [facility] 10-15-2023 09:50-0400 SaO2% (BldA) [Mass fraction] 100 % Mohamad Mouchli [facility] 10-15-2023 09:50-0400 Systolic blood pressure 122 mm[Hg] Mohamad Mouchli [facility] 10-15-2023 09:41-0400 Body temperature 98.06 [degF] Mohamad Mouchli [facility] 10-15-2023 09:30-0400 Respiratory rate 10 /min Mohamad Mouchli [facility] 10-15-2023 09:25-0400 Respiratory rate 10 /min Mohamad Mouchli [facility] 10-15-2023 09:24-0400 Respiratory rate 10 /min Mohamad Mouchli [facility] 10-15-2023 07:13-0400 Body temperature 98.42 [degF] Mohamad Mouchli [facility] 09-13-2023 14:52-0400 Blood Pressure Location Mohamad Mouchli [facility] 09-13-2023 14:52-0400 Diastolic blood pressure 82 mm[Hg] Mohamad Mouchli [facility] 09-13-2023 14:52-0400 Heart rate 78 /min Mohamad Mouchli [facility] 09-13-2023 14:52-0400 Respiratory rate 16 /min Mohamad Mouchli [facility] 09-13-2023 14:52-0400 Systolic blood pressure 110 mm[Hg] Alex Garciahilario [facility] 07-20-2023 18:58-0400 Body temperature 98.49 [degF] Gwen Danielson MD Work Phone: [facility] 07-20-2023 18:58-0400 Diastolic blood pressure 83 mm[Hg] Gwen Danielson MD Work Phone: [facility] 07-20-2023 18:58-0400 Heart rate 52 /min Gwen Danielson MD Work Phone: [facility] 07-20-2023 18:58-0400 Respiratory rate 18 /min Gwen Danielson MD Work Phone: [facility] 07-20-2023 18:58-0400 SaO2% (BldA) [Mass fraction] 98 % Gwen Danielson MD Work Phone: [facility] 07-20-2023 18:58-0400 Systolic blood pressure 135 mm[Hg] Gwen Danielson MD Work Phone: [facility] 07-20-2023 13:40-0400 Body height 167.6 cm Gwen Danielson MD Work Phone: [facility] 07-20-2023 13:40-0400 Body mass index (BMI) [Ratio] 19.05 kg/m2 Gwen Danielson MD Work Phone: [facility] 07-20-2023 13:40-0400 Body weight 53.52 kg Gwen Danielson MD Work Phone: [facility] Encounters Encounter Date Encounter Type Care Provider Facility Start: 04-08-2024 End: 04-08-2024 ambulatory MD JADE LEDBETTER Facility:[facility] Start: 04-08-2024 End: 04-08-2024 Patient encounter procedure JADE LEDBETTER [facility] Start: 04-08-2024 End: 04-08-2024 Clinisync Result Encounter Generic External Data Provider [facility] Unsolicited Start: 04-08-2024 End: 04-08-2024 Clinisync Result Encounter Generic External Data Provider [...] Start: 02-18-2024 End: 02-18-2024 ambulatory Carolyne Edmonds Facility:[facility] Start: 02-18-2024 End: 02-18-2024 Patient encounter procedure Carolyne Edmonds [facility] Start: 02-18-2024 End: 02-18-2024 Clinisync Result Encounter Carolyne Edmonds MD Work Phone: [facility] Unsolicited Start: 02-18-2024 End: 02-18-2024 Clinisync Result Encounter Carolyne Edmonds MD Work Phone: [facility] Unsolicited Start: 02-15-2024 End: 02-15-2024 Office outpatient visit 15 minutes Carol GOMEZ Work Phone: [facility] Comment on above: Myalgia (Primary Dx) Start: 02-15-2024 End: 02-15-2024 ambulatory CAROL MAGAÑA Not Available Start: 02-13-2024 End: 02-13-2024 Clinisync Result Encounter Generic External Data Provider [facility] Unsolicited Start: 02-13-2024 End: 02-13-2024 Clinisync Result Encounter Generic External Data Provider [facility] External [facility] Unsolicited Start: 01-16-2024 End: 01-16-2024 Phys/qhp telephone evaluation 5-10 min Ureil Halina DO Work Phone: [facility] [...] Start: 10-15-2023 End: 10-15-2023 ambulatory Alex Knutson Facility:[facility] Start: 10-15-2023 End: 10-15-2023 Patient encounter procedure Alex Knutson [facility] Start: 09-13-2023 End: 09-13-2023 ambulatory Alex Knutson Facility:[facility] Start: 09-13-2023 End: 09-13-2023 Patient encounter procedure Alex Knutson [facility] Start: 2023 ambulatory [facility]nut[facility] Start: 08-23-2023 End: 08-23-2023 ambulatory CAROLYNE EDMONDS Not Available Start: 08-14-2023 Telephone encounter Karina Hand MD Work Phone: Endocrinology Comment on above: Results Start: 07-26-2023 End: 07-26-2023 ambulatory CAROLYNE EDMONDS Not Available Start: 07-20-2023 End: 07-20-2023 Emergency department patient visit Gwen Danielson MD Work Phone: [facility] Comment on above: Nausea and vomiting, unspecified vomiting type (Primary Dx); Gastritis, presence of bleeding unspecified, unspecified chronicity, unspecified gastritis type Start: 06-13-2023 End: 06-13-2023 [facility] Karina Cummings MD Work Phone: Endocrinology Comment on above: Prolactinoma (HCC) ( Primary Dx); 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HCC); Elevated prolactin level Start: 05-24-2023 End: 05-24-2023 ambulatory CAROLYNE EDMONDS Not Available Start: 03-19-2023 End: 03-19-2023 ambulatory URIEL HALINA Not Available Start: 03-19-2023 Patient encounter procedure Uriel Meade DO Work Phone: [facility] Start: 02-22-2023 End: 02-22-2023 ambulatory CAROLYNE EDMONDS Not Available Start: 03-22-2020 End: 03-22-2020 Patient encounter procedure YASMIN MARTINEZ Facility:[facility] Start: 03-03-2020 Encounter for preprocedural laboratory examination YASMIN MARTINEZ [facility] Start: 02-25-2020 Encounter for other preprocedural examination YASMIN MARTINEZ [facility] Start: 02-23-2020 End: 02-23-2020 Patient encounter procedure YASMIN MARTINEZ Facility:[facility] Start: 02-20-2020 End: 02-20-2020 Patient encounter procedure YASMIN MARTINEZ Facility:[facility] Start: 02-16-2020 End: 02-17-2020 Patient encounter procedure YASMIN MARTINEZ Facility:[facility] Encounter for other preprocedural examination YASMIN MARTINEZ [facility] Encounter for preprocedural laboratory examination YASMIN MARTINEZ [facility] Procedures Date Procedure Procedure Detail Performing Clinician Start: 04-08-2024 US PELVIS TRANSVAGINAL Generic External Data Provider Start: 03-14-2024 MLR HEMOGLOBIN A1C Generic External Data Provider Start: 02-18-2024 [facility] CBC W/ AUTO DIFF Carolyne Edmonds MD [...] 07-20-2023 Lactate [Moles/volume] in Serum or Plasma [facility] Start: 07-20-2023 Lipase [Enzymatic activity/volume] in Serum or Plasma [facility] Start: 07-20-2023 TROPONIN I, HIGH SENSITIVITY [facility] Start: 07-20-2023 ECG 12-LEAD [facility] Start: 07-20-2023 [facility] Start: 07-20-2023 Assay of lactate Abiodun Ochoa PA-C Work Phone: Start: 07-20-2023 Radiologic exam chest single view Aboidun Ochoa PA-C Work Phone: Start: 07-20-2023 Drug tst prsmv instrmnt chem analyzers pr date Abiodun Ochoa PA-C Work Phone: Start: 07-20-2023 Urinalysis complete W Reflex Culture panel - Urine Abiodun Ochoa PA-C Work Phone: Start: 07-20-2023 Urnls dip stick/tablet reagent auto microscopy Abiodun CONDONC Work Phone: Start: 07-20-2023 Comprehensive metabolic panel Abiodun CONDONC Work Phone: Start: 07-20-2023 Ecg routine ecg w/least 12 lds trcg only w/o i&r Abiodun CONDONC Work Phone: Start: 03-19-2023 Cytp cerv/vag auto thin layer prep mnl screen Uriel Meade Work Phone: Tonsillectomy and adenoidectomy Carolyne Edmonds Plan of Treatment Date Care Activity Detail Author Start: 2044 Zoster Vaccines (1 of 2) Zoste r Vaccines (1 of 2) [facility] Start: 09-24-2024 End: 09-24-2024 Patient encounter procedure 09/24/2024 3:00 PM EDT Office Visit [facility] [address] [place] [place] [address] Uriel Meade, DO [address] [facility] [place] [address] [facility] Start: 03-26-2024 End: 03-26-2024 Patient encounter procedure 03/26/2024 1:00 PM EST Office Visit [facility] [address] [place] [phone] Uriel Meade, DO [address] [facility] [place] [address] [facility] Start: 03-24-2024 End: 03-24-2024 Patient encounter procedure 03/24/2024 4:00 PM EST Office Visit [facility] [address] [place] [phone] Uriel Meade, DO [address] [facility] [place] [address] [facility] Start: 02-15-2024 End: 02-15-2024 Telemedicine consultation with patient 02/15/2024 10:00 AM EST Telemedicine [facility] [address] [place] [phone] Carol Magaña PA [address] [place] [address] [facility] Start: 11-22-2023 End: 11-22-2023 Patient encounter procedure 11/22/2023 4:00 PM EDT Office Visit [facility] [address] [place] [phone] Carolyne Edmonds MD [address] [place] [address] [facility] Start: 11-04-2023 Influenza vaccination [facility] Start: 07-11-2023 End: 10-10-2023 Corticotropin [Mass/volume] in Plasma ACTH BLD Lab Routine 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[facility]) Expected: 07/11/2023, Expires: 10/10/2023 [facility] Comment on above: Expected: 07/11/2023 , Expires: 10/10/2023 Start: 07-11-2023 End: 10-10-2023 Cortisol [Mass/volume] in Serum or Plasma CORTISOL, SERUM Lab Routine 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[facility]) Expected: 07/11/2023, Expires: 10/10/2023 [facility] Comment on above: Expected: 07/11/2023 , Expires: 10/10/2023 Start: 07-11-2023 End: 10-10-2023 Estradiol (E2) [Mass/volume] in Serum or Plasma ESTRADIOL-17B BLD Lab Routine 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[facility]) Expected: 07/11/2023, Expires: 10/10/2023 [facility] Comment on above: Expected: 07/11/2023 , Expires: 10/10/2023 Start: 07-11-2023 End: 10-10-2023 Follitropin [Units/volume] in Serum or Plasma FOLLICLE STIMULATING HORMONE Lab Routine 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[facility]) Expected: 07/11/2023, Expires: 10/10/2023 [facility] Comment on above: Expected: 07/11/2023 , Expires: 10/10/2023 Start: 07-11-2023 End: 10-10-2023 INSULIN LIK GR FAC I INSULIN LIK GR FAC I Lab Routine 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[facility]) Expected: 07/11/2023, Expires: 10/10/2023 [facility] Comment on above: Expected: 07/11/2023 , Expires: 10/10/2023 Start: 07-11-2023 End: 10-10-2023 Lutropin [Units/volume] in Serum or Plasma LUTEINIZING HORMONE Lab Routine 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[facility]) Expected: 07/11/2023, Expires: 10/10/2023 [facility] Comment on above: Expected: 07/11/2023 , Expires: 10/10/2023 Start: 07-11-2023 End: 08-09-2024 MR Pituitary and Sella turcica WO and W contrast IV MRI PITUITARY WO/W IVCON Radiology Routine 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[facility]) Expected: 07/11/2023, Expires: 08/09/2024 [facility] Work Phone: Comment on above: Expected: 07/11/2023 , Expires: 08/09/2024 Start: 07-11-2023 End: 10-10-2023 Prolactin [Mass/volume] in Serum or Plasma PROLACTIN Lab Routine 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[facility]) Expected: 07/11/2023, Expires: 10/10/2023 [facility] Comment on above: Expected: 07/11/2023 , Expires: 10/10/2023 Start: 07-11-2023 End: 10-10-2023 Somatostatin [Mass/volume] in Plasma GROWTH HORMONE Lab Routine 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[facility]) Expected: 07/11/2023, Expires: 10/10/2023 [facility] Comment on above: Expected: 07/11/2023 , Expires: 10/10/2023 Start: 07-11-2023 End: 10-10-2023 Thyrotropin [Units/volume] in Serum or Plasma THYROID STIMULATING HORMONE Lab Routine 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[facility]) Expected: 07/11/2023, Expires: 10/10/2023 [facility] Comment on above: Expected: 07/11/2023 , Expires: 10/10/2023 Start: 07-11-2023 End: 10-10-2023 Thyroxine (T4) free [Mass/volume] in Serum or Plasma T4 FREE/FREE THYROXINE Lab Routine 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[facility]) Expected: 07/11/2023, Expires: 10/10/2023 [facility] Comment on above: Expected: 07/11/2023 , Expires: 10/10/2023 Start: 03-05-2023 Behavioral Health Screening Behavioral Health Screening [facility] Start: 11-03-2022 Covid-19 Vaccine () Covid-19 Vaccine () [facility] Start: 05-29-2018 DTaP/Tdap/Td Vaccine s (3 - Td or Tdap) DTaP/Tdap/Td Vaccines (3 - Td or Tdap) [facility] Start: 05-29-2018 Urine microalbumin profile DTaP,Tdap,Td Vaccine (3 - Td or Tdap) [facility] Start: 08-30-2015 Screening for malign ant neoplasm of cervix [facility] Start: 07-13-2014 Hepatitis B Vaccine (3 of 3 - 19+ 3-dose series) Hepatitis B Vaccine (3 of 3 - 19+ 3-dose series) [facility] Start: 07-13-2014 Hepatitis B Vaccines (3 of 3 - 19+ 3-dose series) Hepatitis B Vaccines (3 of 3 - 19+ 3-dose series) [facility] Start: 05-12-2014 Hepatitis A Vaccines (2 of 2 - 2-dose series) Hepatitis A Vaccines (2 of 2 - 2-dose series) [facility] Start: 2012 Hepatitis C screening Hepatitis C Sc reening [facility] Start: 2012 HIV screening HIV Screening [facility] Start: 05-18-2010 Varicella vaccination Varicell a Vaccines (2 of 2 - 13+ 2-dose series) [facility] Start: 2000 Pneumococcal Vaccine : Pediatrics (0 to 5 Years) and At-Risk Patients (6 to 64 Years) (1 of 2 - PCV) Pneumococcal Vaccine: Pediatrics (0 to 5 Years) and At-Risk Patients (6 to 64 Years) (1 of 2 - PCV) [facility] Start: 07-06-1999 IPV Vaccines (2 of 3 - 4-dose series) IPV Vaccines (2 of 3 - 4-dose series) [facility] Start: 1994 HIV screening HIV Screening [facility] Start: 1994 Lipid panel Lipid Panel [facility] Start: 1994 Yearly Adult Physical Yearly Adult P hysical [facility] ECG 12 lead ECG 12 lead ECG STAT 07/20/2023 2:57 PM EDT [facility] Work Phone: End: 07-20-2023 Extra Urine Doran Tube [facility] Work Phone: Comment on above: Once for 1 Occurrenc es starting 07/20/2023 until 07/20/2023 End: 07-20-2023 Urinalysis complete W Reflex Culture panel - Urine [facility] Work Phone: Comment on above: Once (Lab) for 1 Occ urrences starting 07/20/2023 until 07/20/2023 Immunizations Immunization Date Immunization Notes Care Provider Felicitas chase 12-06-2015 influenza, injectabl e, quadrivalent, preservative free Uriel Halina DO Work Phone: [facility] 12-06-2015 influenza virus vacc ine, unspecified formulation Karina Cummings MD Work Phone: [facility] 05-18-2014 hepatitis B vaccine, adult dosage Mohamad Mouchli [facility] 03-30-2014 hepatitis B vaccine, adult dosage Mohamad Mouchli [facility] 11-12-2013 hepatitis A vaccine, pediatric/adolescent dosage, 2 dose schedule Uriel Halina DO Work Phone: [facility] 11-12-2013 hepatitis A vaccine, unspecified formulation Mohamad Mouchli [facility] 11-12-2013 hepatitis B vaccine, pediatric or pediatric/adolescent dosage Mohamad Mouchli [facility] 11-12-2013 hepatitis A and hepatitis B vaccine Gwen Danielson MD Work Phone: [facility] Work Phone: 12-31-2012 influenza virus vacc ine, whole virus Uriel Halina DO Work Phone: [facility] 12-31-2012 influenza, whole Mohamad Rosa chli [facility] 12-14-2012 measles, mumps and rubella virus vaccine Carolyne Edmonds [facility] Comment on above: Reason for Medicatio n: Other (see comment) 04-20-2010 hepatitis A vaccine, pediatric/adolescent dosage, 2 dose schedule Uriel Halina DO Work Phone: [facility] 04-20-2010 hepatitis A vaccine, unspecified formulation Mohamad Mouchli [facility] 04-20-2010 varicella virus vaccine Jeovanny Danielson MD Work Phone: [facility] 05-29-2008 meningococcal ACWY vaccine, unspecified formulation Mohamad Mouchli [facility] 05-29-2008 meningococcal polysaccharide (groups A, C, Y and W-135) diphtheria toxoid conjugate vaccine (MCV4P) Uriel Halina DO Work Phone: [facility] 05-29-2008 tetanus toxoid, redu bridget diphtheria toxoid, and acellular pertussis vaccine, adsorbed Mohamad Mouchli [facility] 12-13-2006 HPV, unspecified formulation Mohamad Mouchli [facility] 12-13-2006 human papilloma viru s vaccine, quadrivalent Uriel Halina DO Work Phone: [facility] 08-13-2006 HPV, unspecified formulation Mohamad Mouchli [facility] 08-13-2006 human papilloma viru s vaccine, quadrivalent Uriel Halina DO Work Phone: [facility] 06-13-2006 HPV, unspecified formulation Mohamad Mouchli [facility] 06-13-2006 human papilloma viru s vaccine, quadrivalent Uriel Halina DO Work Phone: [facility] 06-08-1999 diphtheria, tetanus toxoids and acellular pertussis vaccine, unspecified formulation Uriel Halina DO Work Phone: [facility] 06-08-1999 DTaP, unspecified formulation Mohamad Mouchli [facility] 06-08-1999 measles, mumps and rubella virus vaccine Alex Hortonhelena [facility] 06-08-1999 poliovirus vaccine, inactivated Uriel Halina DO Work Phone: [facility] 06-08-1999 poliovirus vaccine, unspecified formulation Gwen Danielson MD Work Phone: [facility] Payers Date Payer Category Payer Unknown [id number] 2019 [facility] er [id number] 2019 Unknown [id number] 1994 Unknown [id number] 9.2.593 1994 Unknown [id number] 9.2.593 1994 Unknown [id number] 9.2.593 1994 Unknown [id number] 9.2.593 1994 Unknown [id number] 9.2.1243 1994 Unknown [id number] [id number] 9.2.727 1994 Unknown [id number] [id number] 9.2.727 1994 Unknown [id number] [id number] 9.2.727 1994 Unknown [id number] [id number] 9.2.1259 1994 Unknown [id number] [id number] 9.2.1259 1994 Unknown [id number] [id number] 9.2.1259 1994 Unknown [id number] [id number] 9.2.1259 1994 Unknown [id number] [id number] 9.2.1259 1994 Unknown [id number] [id number] 9.2.1259 1994 Unknown [id number] [id number] 9.2.1259 1994 Unknown [id number] [id number] 9.2.727 1994 Unknown [id number] [id number] 9.2.727 1959 Unknown [id number] 1959 Unknown [id number] 1959 Unknown [id number] Social History Date Type Detail Facility Tobacco smoking stat [facility] Tobacco smoking consumption unknown [facility] Start: 06-13-2023 End: 02-15-2024 History of Social function [facility] Start: 06-13-2023 End: 02-15-2024 Area Deprivation Index [facility] National Score (1-10 0), lower number is lower risk 85 [facility] Start: 1994 Sex Assigned At Not on file [facility] Start: 07-10-2023 End: 07-20-2023 Exposure to SARS-CoV-2 (event) Not sure [facility] Work Phone: Start: 09-09-2019 End: 09-13-2023 Tobacco smoking status Never smoked tobacco (finding) [facility] Start: 08-23-2023 End: 12-03-2023 Alcoholic beverage intake Lifetime non-drinker (finding) [facility] Start: 09-06-2022 Alcohol Comment caffeine: none [facility] Do you belong to any clubs or organizations such as synagogue groups, unions, fraternal or athletic groups, or school groups? No [...] [OSQ] Very much [facility] (I/We) worried whesteven er (my/our) food would run out before (I/we) got money to buy more. Never true [facility] Functional Status Date Assessment Result Facility 10-15-2023 Functional Status N/A [facility] 09-13-2023 Functional Status N/A [facility] Clinical Notes 01-20-2021 to 03-12-2024 Akua Streeter LPN - 03/12/2024 8:00 AM PATRICIA Bustillo - 02/18/2024 3:33 PM PATRICIA Bustillo 02/15/2024 10:00 AM PATRICIA Bustillo - 02/15/2024 10:00 AM EST Note Date & Type Note Facility 03-12-2024 History of Present illness Narrative Reason for Appointment: Patient ID: Indu St is a 28 y.o. female who presents for No chief complaint on file. Patient presents today via telephone call for a telehealth appointment. Patients Phone #: [phone] (mobile) Current Medications: has a current medication list which includes the following prescription(s): alprazolam, breyna, cholecalciferol, coenzyme q-10, fish oil concentrate, and vitamins. Medical History: Active Ambulatory Problems Diagnosis Date Noted Bipolar 1 disorder ([facility]) 11/13/2022 Anxiety 12/21/2022 Asthma ([facility]) 12/21/2022 Attention deficit hyperactivity disorder (ADHD), combined type ([facility]) 12/21/2022 Proteinuria 08/03/2010 PTSD (post-traumatic stress disorder) ([facility]) 12/21/2022 Bipolar affective disorder, current episode hypomanic ([facility]) 12/21/2022 Well woman exam with routine gynecological exam 03/19/2023 Myalgia 02/18/2024 Resolved Ambulatory Problems Diagnosis Date Noted No Resolved Ambulatory Problems Past Medical History: Diagnosis Date Abnormal uterine bleeding (AUB) ADHD (attention deficit hyperactivity disorder) ([facility]) Amenorrhea Bilateral sacroiliitis ([facility]) Cervical cancer ([facility]) Chronic fatigue Chronic rhinitis Chronic vaginitis Depression [...] 03/2020 lap, D and C - at [facility] DILATION AND CURETTAGE OF UTERUS 03/07/2013 [...] Uriel Meade DO documented in this encounter [facility] 02-18-2024 History of Present illness Narrative Associated Problem(s): Myalgia Dr Edmonds put in lab orders and patient will go to [facility] Will call with results Images from the [...] from patient for Telehealth Services. Patient Location ([place]) Patient is concerned about ongoing joint pain [...] lab orders and patient will go to [facility] Will call with results Health Maintenance Due Topic Date Due Influenza Vaccine (1) 11/04/2023 documented in this encounter [facility] 02-18-2024 Evaluation + Plan note Diagnostic Tests Pending.JESUS Individual Abs 02/18/24Rheumatoid Factor Quantitative 02/18/24 [facility] 01-16-2024 History of Present illness Narrative Reason for Appointment: Patient ID: Indu St is a 28 y.o. female who presents for Telehealth and Infertility Patient presents today via telephone call for a telehealth appointment. Patients Phone #: [phone] (mobile) Current Medications: has a current medication list which includes the following prescription(s): alprazolam and breyna. Medical History: Active Ambulatory Problems Diagnosis Date Noted Bipolar 1 disorder ([facility]) 11/13/2022 Anxiety 12/21/2022 Asthma ([facility]) 12/21/2022 Attention deficit hyperactivity disorder (ADHD), combined type ([facility]) 12/21/2022 Proteinuria 08/03/2010 PTSD (post-traumatic stress disorder) ([facility]) 12/21/2022 Bipolar affective disorder, current episode hypomanic ([facility]) 12/21/2022 Well woman exam with routine gynecological exam 03/19/2023 Resolved Ambulatory Problems Diagnosis Date Noted No Resolved Ambulatory Problems Past Medical History: Diagnosis Date Abnormal uterine bleeding (AUB) ADHD (attention deficit hyperactivity disorder) ([facility]) Amenorrhea Bilateral sacroiliitis ([facility]) Cervical cancer ([facility]) Chronic fatigue Chronic rhinitis Chronic vaginitis Depression [...] 03/2020 lap, D and C - at [facility] DILATION AND CURETTAGE OF UTERUS 03/07/2013 [...] pt has appt with IVF clinic in [place]. Pt is having weird symptoms- anal itching, [...] Uriel Meade DO documented in this encounter [facility] 12-03-2023 History of Present illness Narrative Reason [...] Problems Diagnosis Date Noted Bipolar 1 disorder ([facility]) 11/13/2022 Anxiety 12/21/2022 Asthma ([facility]) 12/21/2022 Attention deficit hyperactivity disorder (ADHD), combined type ([facility]) 12/21/2022 Proteinuria 08/03/2010 PTSD (post-traumatic stress disorder) ([facility]) 12/21/2022 Bipolar affective disorder, current episode hypomanic ([facility]) 12/21/2022 Well woman exam with routine gynecological exam 03/19/2023 Resolved Ambulatory Problems Diagnosis Date Noted No Resolved Ambulatory Problems Past Medical History: Diagnosis Date Abnormal uterine bleeding (AUB) ADHD (attention deficit hyperactivity disorder) ([facility]) Amenorrhea Bilateral sacroiliitis (CMS/HCC) Cervical cancer (CMS/HCC) Chronic fatigue Chronic rhinitis Chronic vaginitis Depression with anxiety Endometriosis Gynecological disorder History of medical problems Infertility counseling Low libido Miscarriage S/P laparoscopy Sciatica, unspecified side Seasonal allergic rhinitis, unspecified trigger Serous otitis media, unspecified chronicity, unspecified laterality URI (upper respiratory infection) 03/01/2019 HISTORY PAST MEDICAL HISTORY SOCIAL HISTORY Past Medical History: Diagnosis Date Abnormal uterine bleeding (AUB) ADHD (attention deficit hyperactivity disorder) (CMS/HCC) Amenorrhea Bilateral sacroiliitis (CMS/HCC) Cervical cancer (CMS/HCC) Chronic fatigue Chronic rhinitis Chronic vaginitis Depression with anxiety Depression/Anxiety Endometriosis Gynecological disorder History of medical problems Question of bipolar disorder Infertility counseling Low libido Miscarriage S/P laparoscopy Sciatica, unspecified side Seasonal allergic rhinitis, unspecified trigger Serous otitis media, unspecified chronicity, unspecified laterality URI (upper respiratory infection) 03/01/2019 [facility] - ER Social History Tobacco Use Smoking [...] 03/2020 lap, D and C - at [facility] DILATION AND CURETTAGE OF UTERUS 03/07/2013 [...] nursing note reviewed. Exam conducted with a pleat taper present. Vitals: Estimated body mass index is [...] have HSG done again locally at [facility]. Patient is to call office when she starts cycle and nurse will send HSG and HCG to [facility] Radiology. Will hold off on fertility meds for the next cycle until HSG results are back. Patient to return to clinic for annual and PRN as needed. Documented by Akua Streeter LPN on behalf of: Uriel Meade DO documented in this encounter [facility] 10-15-2023 Evaluation + Plan note Extrac latisha from: Title:ANES Post General Author:Gus Moreno DO Date:10/15/23 Plan Transfer/Discharge: Patient exhibiting no signs of N/V. Hydration status is adequate. Extracted from: Title:Josh Basic PRE Author:Kenan Moreno DO Date:10/15/23 Plan [place] [employer] Anesthesiologists (ASA) physical status classification: Class II. Anesthetic Preoperative Plan: Anesthesia General. [facility] 08-12-2024 Hospital Discharge instructions Patient Education 10/15/2023 09:50:27 Colonoscopy, Care After Surgery Aryan (CUSTOM) Colonoscopy Care After Surgery Please read [...] day. 10/15/2023 09:50:26 Endoscopy, Care After Procedure [facility] ([facility]) Endoscopy Care After Procedure Please read the instructions outlined below and refer to this sheet in the next few weeks. These discharge instructions provide you with general information on caring for [facility] Your doctor may also give you specific [...] Document Re-Released: 08/13/2006 ExitCare Patient Information 2009 [employer]. Follow Up Care 09/13/2023 15:40:21 With:Alex Knutson Address: [address] [place] [address], [address] [place] [phone] Business (1) When:1 to 2 weeks Comments:Call for any problems. [facility] 08-12-2024 NoteProgress Note-Physician Patient: INDU ST [...] Daily, # 527 gm, Refills(s) 5, Pharmacy: [id number], 167, cm, 09/13/23 14:57:00 EDT, Height/Length Dosing, 48.9, kg, 09/13/23 14:57:00 EDT, Weight Dosing Pantoprazole [address] Tab: 40 mg = 1 tab(s), Oral, Daily, # 30 tab(s), Refills(s) 4, [id number], 167, cm, 09/13/23 14:57:00 EDT, Height/Length Dosing, [...] CT of the abdomen / SNOMED CT 3687775970 / Confirmed Abnormal uterine bleeding. / SNOMED CT 5444228792 / Confirmed Amenorrhea / SNOMED CT 01275857 / Confirmed Anemia / SNOMED CT 647634089 / Confirmed Anxiety / SNOMED CT 57717949 / Confirmed Asthma / SNOMED CT 183143066 / Confirmed Attention deficit hyperactivity disorder / SNOMED CT 6633017750 / Confirmed Benign neoplasm of pituitary gland / SNOMED CT 744957063 / Confirmed Bilateral arthritis of sacroiliac joint / SNOMED CT 5626844847 / Confirmed Bipolar disorder / SNOMED CT 07234397 / Confirmed Chronic rhinitis / SNOMED CT 649349145 / Confirmed Chronic vaginitis / SNOMED CT 77608713 / Confirmed Depressive disorder / SNOMED CT 63109880 / Confirmed Disorder of pituitary gland / SNOMED CT 9237159219 / Confirmed Endometriosis (clinical) / SNOMED CT 449480133 / Confirmed Esophagitis / SNOMED CT 17679232 / Confirmed Fatigue / SNOMED CT 983912998 / Confirmed Gastritis / SNOMED CT 0524258 / Confirmed Heartburn / SNOMED CT 89871012 / Confirmed History of laparoscopy / SNOMED CT 1848779594 / Confirmed Malignant tumor of cervix / SNOMED CT 863428202 / Confirmed Miscarriage / SNOMED CT 00179846 / Confirmed Nausea and vomiting / SNOMED CT 95509416 / Confirmed Pain in pelvis / SNOMED CT 157788965 / Confirmed Prolactin level above reference range / SNOMED CT 5002497032 / Confirmed Prolactinoma / SNOMED CT 773658953 / Confirmed Sciatica / SNOMED CT 32308064 / Confirmed Seasonal allergic rhinitis / SNOMED CT 741312607 / Confirmed Stress-related physiological response affecting medical condition / SNOMED CT 16934068 / Confirmed 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 Weight loss / SNOMED CT 623308092 / Confirmed Physical Examination Vital Signs 10/15/2023 [...] 36.7 DegC Heart Rate (more content not included)...[facility] HealthComment on above:Result Comment: Electronically Signed By: Lenny Moreno DO\.br\Date and Time Signed: 10/15/23 10:06 [id number] NoteColonoscopy Procedure Report Patient: INDU ST Age: [...] Daily, # 527 gm, Refills(s) 5, Pharmacy: [facility] #[id number], 167, cm, 09/13/23 14:57:00 EDT, Height/Length Dosing, 48.9, kg, 09/13/23 14:57:00 EDT, Weight Dosing Pantoprazole [address] Tab: 40 mg = 1 tab(s), Oral, Daily, # 30 tab(s), Refills(s) 4, Pharmacy: [facility] #[id number], 167, cm, 09/13/23 14:57:00 EDT, Height/Length Dosing, [...] 3. Normal terminal ileum Images Procedure images: [id number]_hd_video_2023__[id number].jpg Rec1_hd_video_2023__[id number].jpg Rec1_hd_video_2023__12T08_40_[id number].jpg Rec1_hd_video_2023__[id number]_[id number].jpg Rec1_hd_video_2023__12T08_[id number]_130.jpg Rec1_hd_video_2023__12T08_[id number].jpg Rec1_hd_video_2023__12T08_[id number]_14_[id number].jpg . Post-Procedure Complications: none. Estimated blood loss: none. Specimens: none. Devices/ implants: none left in place. Impression and Plan internal hemorrhoids Otherwise, normal colon Recommendations: Repeat colonoscopy:: At the age of 44 . Follow-up:: in clinic as scheduled. Diet:: Previous. Medication resumption:: Continue current medications, Avoid NSAIDs. Return to activities:: After 24 hours. Education and Follow-up: Counseled: Patient, Family.[facility] Comment on above:Other Comment: Missing Attachment - attachment storage system not supported [id number] Can be viewed in source system Missing Attachment - attachment storage system not supported [id number] Can be viewed in source systemMissing Attachment - attachment storage system not supported [id number] Can be viewed in source systemMissing Attachment - attachment storage system not supported [id number] Can be viewed in source systemMissing Attachment - attachment storage system not supported [id number] Can be viewed in source systemMissing Attachment - attachment storage system not supported [id number] Can be viewed in source systemMissing Attachment - attachment storage system not supported [id number] Can be viewed in source [id number] Note Patient Education - Text Colonoscopy Care [...] Document Re-Released: 08/13/2006 ExitCare? Patient Information ?2009 [employer].[facility] 10-15-2023 NoteProgress Note-Physician Patient: INDU ST Age: [...] Daily, # 527 gm, Refills(s) 5, Pharmacy: [facility] #[id number], 167, cm, 09/13/23 14:57:00 EDT, Height/Length Dosing, 48.9, kg, 09/13/23 14:57:00 EDT, Weight Dosing Pantoprazole [address] Tab: 40 mg = 1 tab(s), Oral, Daily, # 30 tab(s), Refills(s) 4, Pharmacy: [facility] #[id number], 167, cm, 09/13/23 14:57:00 EDT, Height/Length Dosing, [...] CT of the abdomen / SNOMED CT 2901896427 / Confirmed Abnormal uterine bleeding. / SNOMED CT 7337888364 / Confirmed Amenorrhea / SNOMED CT 17291389 / Confirmed Anemia / SNOMED CT 183174714 / Confirmed Anxiety / SNOMED CT 85387470 / Confirmed Asthma / SNOMED CT 476189913 / Confirmed Attention deficit hyperactivity disorder / SNOMED CT 9182396887 / Confirmed Benign neoplasm of pituitary gland / SNOMED CT 509141506 / Confirmed Bilateral arthritis of sacroiliac joint / SNOMED CT 7992488012 / Confirmed Bipolar disorder / SNOMED CT 74155634 / Confirmed Chronic rhinitis / SNOMED CT 562896291 / Confirmed Chronic vaginitis / SNOMED CT 13602746 / Confirmed Depressive disorder / SNOMED CT 00146879 / Confirmed Disorder of pituitary gland / SNOMED CT 0732708996 / Confirmed Endometriosis (clinical) / SNOMED CT 618687690 / Confirmed Esophagitis / SNOMED CT 01503186 / Confirmed Fatigue / SNOMED CT 783589833 / Confirmed Gastritis / SNOMED CT 5642377 / Confirmed Heartburn / SNOMED CT 63080098 / Confirmed History of laparoscopy / SNOMED CT 0385646903 / Confirmed Malignant tumor of cervix / SNOMED CT 349543768 / Confirmed Miscarriage / SNOMED CT 86774986 / Confirmed Nausea and vomiting / SNOMED CT 60351851 / Confirmed Pain in pelvis / SNOMED CT 205968449 / Confirmed Prolactin level above reference range / SNOMED CT 6726116644 / Confirmed Prolactinoma / SNOMED CT 922118280 / Confirmed Sciatica / SNOMED CT 98937361 / Confirmed Seasonal allergic rhinitis / SNOMED CT 992302877 / Confirmed Stress-related physiological response affecting medical condition / SNOMED CT 59254404 / Confirmed Visceral hypersensitivity syndrome / SNOMED CT 7491381699 / Confirmed Weight loss / SNOMED CT 499887090 / Confirmed, Active Problems (31) Abnormal CT of the abdomen Abnormal uterine bleeding. 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 Bipolar disorder Chronic rhinitis Chronic vaginitis Depressive disorder Disorder of pituitary gland Endometriosis (cl (more content not included)...[facility] Comment on above:Result Comment: Electronically Signed By: Lenny Moreno DO\.br\Date and Time Signed: 10/15/23 07:34 [id number] Telephone encounter Note* Telephone Encounter - Twyla Salcedo MA - 08/14/2023 11:08 AM EDT Received MRI results completed 08/02/2023, scanned to chart Twyla Salcedo Medical Physics Professor II Endocrinology & Metabolism [facility] F20 & X20 [facility]06-11-2024 Miscellaneous Notes* Telephone Encounter - Twyla Salcedo MA - 08/14/2023 11:08 AM EDT Received MRI results completed 08/02/2023, scanned to chart Twyla Salcedo Medical Physics Professor II Endocrinology & Metabolism [facility] F20 & X20 documented in this encounter[facility] Reason for referral (narrative)* Consultation (Routine) - Authorized Specialty Diagnoses / Procedures Referred By Niki t Referred To Contact Gastroenterology Abiodun Ochoa PA-C [address] [place] [address] Do [id number] Gastro[address] [facility] [address] [place] [address] Referral ID Status Reason Start Date Expiration Date Visits Requested Visits Authorized [id number] Authorized Specialty Services Required 07/20/2023 07/19/2024 1 1 [facility] Work Phone: [phone]) 124-432404-10-2024 NoteHNO ID: [id number] Author: KARINA CUMMINGS MD Service: ? Author [...] June 13, 2023 TIME of SERVICE: 10:12 [facility]04-10-2024 History of Present illness Narrative* [...] Medication Sig Norethindrone Acet-Ethinyl Est (LOESTRIN 03/24, 21,) 1-20 [...] of SERVICE: 10:12 AM documented in this encounterTri[facility]11-18-2021 NoteHNO ID: [id number] Author: Renetta Beltran MD Service: Reproductive Endocrinology [...] Dr. Renetta Beltran M.D. 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) Unspecified disorder of the pituitary gland and its hypothalamic control Elevated prolactin level Unspecified endocrine disorder documented [facility] this encounter [facility]* Diagnosis Nausea and vomiting, unspecified vomiting type- Primary Gastritis, presence of bleeding unspecified, unspecified chronicity, unspecified gastritis type documented in this encounter [facility] Work Phone: Evaluation note* Diagnosis Female infertility Female infertility of unspecified origin Vaginal odor Unspecified symptom associated with female genital organs [facility] Diagnosis Myalgia- Primary Unspecified myalgia and myositis documented in this encounter [facility] HealthcareEvaluation [facility]* Diagnosis Fallopian tube disorder- Primary Unspecified noninflammatory disorder of ovary, fallopian tube, and broad ligament documented [facility]* Diagnosis Myalgia- Primary Unspecified myalgia and myositis Fallopian tube disorder Unspecified noninflammatory disorder of ovary, fallopian tube, and broad ligament Anovulation Female infertility associated with anovulation Female infertility Female infertility of unspecified origin documented in this encounter [facility] HealthcareHospital course Narrative No data available for this section [facility] Hospital Discharge instructions* Attachments The following attachments cannot be sent through Care Everywhere. * Gastritis ED (Australian) * Nausea and Vomiting, Adult ED ([place]) * Cannabis hyperemesis syndrome ([place]) [facility] Hospital Discharge instructions No data available for this section [facility] Progress note No data available for this section [facility] Summary Purpose Family History No [...] Specialty Diagnoses / Procedures Referred By Niki t Referred To Contact [facility] IMAGING Diagnoses 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HCC) Procedures MRI PITUITARY WO/W IVCON MRI BRAIN BRAIN STEM W/O W/CONTRAST MATERIAL Karina Cummings MD [address] [place] [address] [place] [address] Referral ID Status Reason Start Date Expiration Date Visits Requested Visits Authorized [id number] Pending Review Auto-Generat ed Referral 07/11/2023 08/09/2024 1 1 Additional Source Comments INFORMATION SOURCE (unrecogn ized section and content) DATE CREATED AUTHOR 04/15/2020 [facility] DATE CREATED AUTHOR AUTHOR'S ORGANIZ ATION 01/22/2021 [facility] DATE CREATED AUTHOR AUTHOR'S ORGANIZ ATION 07/30/2023 [facility] ical Center DATE CREATED AUTHOR AUTHOR'S ORGANIZ ATION 08/24/2023 [facility] DATE CREATED AUTHOR AUTHOR'S ORGANIZ ATION 09/19/2023 [facility] DATE CREATED AUTHOR AUTHOR'S ORGANIZ ATION 10/16/2023 [facility] DATE CREATED AUTHOR AUTHOR'S ORGANIZ ATION 10/18/2023 [facility] DATE CREATED AUTHOR AUTHOR'S ORGANIZ ATION 10/19/2023 [facility] DATE CREATED AUTHOR AUTHOR'S ORGANIZ ATION 02/17/2024 [facility] CREATED AUTHOR AUTHOR'S ORGANIZ ATION 02/21/2024 [facility] DATE CREATED AUTHOR AUTHOR'S ORGANIZ ATION 02/23/2024 [facility] DATE CREATED AUTHOR AUTHOR'S ORGANIZ ATION 02/24/2024 [facility] DATE CREATED AUTHOR AUTHOR'S ORGANIZ ATION 04/13/2024 [facility] ical Center Source Comments (unrecognize d section and content) In the event this informatio n is protected by the Federal Confidentiality of Alcohol and Drug Abuse Patient Records regulations: The Federal rules restrict any use of the information to criminally investigate or prosecute any alcohol or drug abuse patient.[facility] HospitalIn the event this information is protected by the Federal Confidentiality of Alcohol and Drug Abuse Patient Records regulations: The Federal rules restrict any use of the information to criminally investigate or prosecute any alcohol or drug abuse patient.[facility] Reason for Visit (unrecogniz ed section and content) Reason Comments Pituitary Problem Reason Comments n/v. chest pain Reason Comments Results Reason Comments Telehealth Infertility Reason Comments Infertility Care Teams (unrecognized sec tion and content) Escrow Clerk Relationship Specialty Start Date End Date Uriel Meade DO [address] [place] [address] Referring Laundry Attendant 06/05/23 Escrow Clerk Relationship Specialty Start Date End Date Uriel Meade DO [address] [place] [address] Referring Laundry Attendant 06/05/23 Escrow Clerk Relationship Specialty Start Date End Date Carolyne Edmonds MD [address] [place] [address] PCP - General Family Medicine 08/28/22 Escrow Clerk Relationship Specialty Start Date End Date Carolyne Edmonds MD [address] [place] [address] PCP - General Family Medicine 08/28/22 Escrow Clerk Relationship Specialty Start Date End Date Carolyne Edmonds MD [address] [place] [address] PCP - General Family Medicine 08/28/22 Escrow Clerk Relationship Specialty Start Date End Date Carolyne Edmonds MD [address] [place] [address] PCP - General Family Medicine 08/28/22 Escrow Clerk Relationship Specialty Start Date End Date Carolyne Edmonds MD [address] [place] [address] PCP - General Family Medicine 08/28/22 Escrow Clerk Relationship Specialty Start Date End Date Carolyne Edmonds MD [address] [place] [address] PCP - General Family Medicine 08/28/22 Escrow Clerk Relationship Specialty Start Date End Date Carolyne Edmonds MD [address] [place] [address] PCP - General Family Medicine 08/28/22 Escrow Clerk Relationship Specialty Start Date End Date Carolyne Edmonds MD [address] [place] [address] PCP - General Family Medicine 08/28/22 Escrow Clerk Relationship Specialty Start Date End Date Carolyne Edmonds MD [address] [place] [address] PCP - General Family Medicine 08/28/22 Escrow Clerk Relationship Specialty Start Date End Date Carolyne Edmonds MD [address] [place] [address] PCP - General Family Medicine 08/28/22 Scheduled [...] BE BASED ON THE PRIMARY CLINICAL RECORDS. [facility]. provides no warranty or guarantee of the accuracy or completeness of information in this document.
== END 2024-04-14 06:58 | disposition home or self-care (01) ==
LOC: US 06:57
PROVIDERS: PCP Family Medicine; Visit Provider Obstetrics & Gynecology Reproductive Endocrinology
DX: Z31.83 Encounter for assisted reproductive fertility procedure cycle (principal)
CPT/HCPCS: 76830

== ENCOUNTER 2024-04-16 06:58 | Outpatient (OUT) | payer BC, SELFPAY ==
--- OUTSIDE RECORDS SUMMARY | 2024-04-16 07:01 | XMS_ITS | CCD ---
Author Organization [facility] Care Team Providers Care Drafting Engineer Name Role Phone YASMIN MARTINEZ Consulting Unavailable CAROLYNE COLLAZO Primary Care Unavailable YASMIN MARTINEZ Admitting Unavailable YASMIN MARTINEZ Attending Unavailable GIGI COBB Consulting Unavailable KARILDEFONSOK, YASMIN Admitting Unavailable KARILDEFONSOKYASMIN Attending Unavailable YASMIN MARTINEZ Consulting Unavailable KARILDEFONSOKYASMIN Consulting Unavailable KARILDEFONSOK, YASMIN Admitting Unavailable MICHELLE, YASMIN Attending Unavailable YASMIN MARTINEZ Primary Care Unavailable KARILDEFONSOK, YASMIN Admitting Unavailable YASMIN MARTINEZ Attending Unavailable Uriel Meade DO Unavailable Unavailable Primary Care Provider UnavailKARINA Tilley Attending Unavailable Carolyne Collazo Primary Care Physician [phone] GWEN DANIELSON Attending Unavailable Mohelena Mohamad ATyrone Referring Unavailable Momarcosli, Mohamad A. Admitting Unavailable Payam Knutsonamakobi Berry Attending Unavailable Alex Knutson Attending Unavailable Carolyne Collazo Referring Unavailable Mohelena, Mohamakobi A. Referring Unavailable Mohelena Mohamad ATyrone Attending Unavailable Zenia Mohamakobi ATyrone Admitting Unavailable Carolyne Collazo MD Primary Care Provider Carolyne Collazo Attending Unavailable Carolyne Collazo Admitting Unavailable Carolyne Collazo Attending Unavailable Carolyne Collazo Admitting Unavailable MD JADE LEDBETTER Attending Unavailable MD JADE LEDBETTER Admitting Unavailable CAROLYNE COLLAZO Attending Unavailable CAROLYNE COLLAZO Attending Unavailable CAROLYNE COLLAZO Attending Unavailable CAROLYNE COLLAZO Attending Unavailable URIEL MEADE Attending Unavailable CAORL MAGAÑA Attending Unavailable Allergies Allergy Classification Reported Allergen(s) Allergy Type Date of Onset Reaction(s) Facility (1 source) No Known Medication Allergies; Translations: [No Known Medication Allergies] Propensity to adverse reactions (disorder) [facility] Repository (16 sources) House dust mite Allergy to substance [...] Status: Ordered ALPRAZolam 0.5 mg oral tablet (20 sources) Benzodiazepine Start: 09-13-2023 take 1 tablet [...] Status: Ordered budesonide-formoterol (Breyna) 80-4.5 MCG/ACT inhaler (16 sources) Start: 08-23-2023 End: 08-22-2024 take 2 puff(s) by mouth once daily budesonide-formoterol (Breyna) 80-4.5 MCG/ACT inhaler Indications: Mild intermittent asthma without complication (CMS/HCC) Inhale 2 puffs Daily Rinse mouth with water after use to reduce aftertaste and incidence of candidiasis. Do not swallow. 10.2 g 2 08/23/2023 08/22/2024 Active cholecalciferol 0.025 mg oral tablet (5 sources) Vitamin D Start: 02-21-2024 take 1 [...] / eicosapentaenoic acid 180 mg oral capsule (9 sources) Start: 01-22-2024 End: 02-20-2025 take 1 capsule by mouth once daily fish oil concentrate (Jenkinjones-3) 1000 MG capsule Indications: Female infertility , [...] Daily, # 527 gram, Refills(s) 0, Pharmacy: [facility] #[id number], 168, cm, 09/15/19 7:03:00 EDT, Height/Length Measured, [...] tablet 07/20/2023 08/09/2023 Active polyethylene glycol 3350 42024 mg powder for oral solution (2 sources) Osmotic Laxative Start: 09-13-2023 take 17 g by mouth once daily Miralax 3350 17 gram packet 17 gm, Oral, Daily, # 527 gm, Refills(s) 5, Pharmacy: [facility] #[id number], 167, cm, 09/13/23 14:57:00 EDT, Height/Length Dosing, 48.9, kg, 09/13/23 14:57:00 EDT, Weight Dosing Start Date: 09/13/23 Status: Ordered Vit-Fe Fumarate-FA ( Vitamins) 28-0.8 MG tablet (9 sources) Start: 02-21-2024 End: 02-20-2025 take 1 [...] breakfast, # 30 tab(s), Refills(s) 1, Pharmacy: [facility] #[id number], 168, cm, 09/09/19 8:18:00 EDT, Height/Length Measured, [...] Chronic Attention-deficit, conduct, and disruptive behavior disorders (16 sources) Attention deficit hyperactivity disorder, combined type; [...] without bleeding] Onset: 09-13-2023 Episodic Female infertility (16 sources) Female infertility; Translations: [Female infertility, unspecified] [...] 05-16-2013 Chronic Other aftercare (1 source) Other usp (current) drug therapy; Translations: [OTH RESIDENTIAL CURRENT DRUG THERAPY] Onset: 03-24-2020 Episodic Other and unspecified benign neoplasm (3 sources) Prolactinoma; Translations: [Benign neoplasm of pituitary gland] 07-11-2023 Episodic Other and unspecified benign neoplasm (1 source) Benign neoplasm of pituitary gland; 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)] Onset: 06-13-2023 Episodic Other connective tissue disease (10 sources) Muscle pain; Translations: [Myalgia, unspecified site] [...] vagina] 01-16-2024 Episodic Other female genital disorders (9 sources) Fallopian tube disorder; Translations: [Noninflammatory disorder [...] te Episodic/Chronic Genitourinary symptoms and ill-defined conditions (16 sources) Proteinuria; Translations: [Proteinuria, unspecified] Onset: 08-03-2010 [...] Interpretation Reference Range Facility [place] [address] Ultrasound Report Signed Patient: INDU ST MR#: [id number] : 1995 Acct:[id number] Age/Sex: 28 / F ADM Date: 04/14/24 Loc: US Attending Dr: Jade Ledbetter M.D. Ordering Physician: Jade Ledbetter M.D. Date of Service: 04/14/24 Procedure(s): US pelvis transvaginal Accession Number(s): [id number] cc: CRAOLYNE COLLAZO ; Jade Ledbetter M.D. The [address] [address] Patient Name: INDU ST MRN: [facility]:[id number] date: 1995 Sex: F Assigned Patient Location: US Current Patient Location: US Accession/Order Number: [id number] Exam Date: 04/14/2024 07:00 Report Date: 04/14/2024 07:42 At the request of: JADE LEDBETTER Procedure: US pelvis transvaginal EXAMINATION: US pelvis transvaginal HISTORY: Encounter for ART procedure Z31.83 COMPARISON: 04/08/2024 FINDINGS: The uterus is normal in size, contour and echotexture measuring 10.1 x 4.6 x 6.6 cm per the uterus is anteverted. No focal myometrial mass The endometrium measures 9 mm, trilaminar. The right ovary measures 2.3 x 4.7 x 2.4 cm. Normal color and Doppler flow. 12 subcentimeter follicles. Left ovary measures 2.6 x 4.3 x 2.5 cm. Normal color and Doppler flow. 11 subcentimeter follicles US/US pelvis transvaginal IMPRESSION: Normal exam. Electronically authenticated by: ROMY MCKEON Date: 04/14/2024 07:42 Dictated By: Romy Mckeon M.D. Signed By: 04/14/24 0745 DD/ 0742 TD/TT: Button Pusher: [facility] Radiology, Radiologi MD de - 04/14/[address] [address] Ultrasound Report Signed Patient: INDU ST MR#: [id number] : 1995 Acct:[id number] Age/Sex: 28 / F ADM Date: 04/14/24 Loc: US Attending Dr: Jade Ledbetter M.D. Ordering Physician: Jade Ledbetter M.D. Date of Service: 04/14/24 Procedure(s): US pelvis transvaginal Accession Number(s): [id number] cc: CAROLYNE COLLAZO ; Jade Ledbetter M.D. [place] [id number] Patient Name: INDU ST MRN: [id number] date: 1995 Sex: F Assigned Patient Location: US Current Patient Location: US Accession/Order Number: [id number] Exam Date: 04/14/2024 07:00 Report Date: 04/14/2024 07:42 At the request of: JADE LEDBETTER Procedure: US pelvis transvaginal EXAMINATION: US pelvis transvaginal HISTORY: Encounter for ART procedure Z31.83 COMPARISON: 04/08/2024 FINDINGS: The uterus is normal in size, contour and echotexture measuring 10.1 x 4.6 x 6.6 cm per the uterus is anteverted. No focal myometrial mass The endometrium measures 9 mm, trilaminar. The right ovary measures 2.3 x 4.7 x 2.4 cm. Normal color and Doppler flow. 12 subcentimeter follicles. Left ovary measures 2.6 x 4.3 x 2.5 cm. Normal color and Doppler flow. 11 subcentimeter follicles US/US pelvis transvaginal IMPRESSION: Normal exam. Electronically authenticated by: ROMY MCKEON Date: 04/14/2024 07:42 Dictated By: Romy Mckeon M.D. Signed By: 04/14/2445 DD/ TD/TT: Button Pusher: [facility] Radiology Study observation (narrative) [facility] US PELVIS TRANSVAGINALOrdere d By: Radiologist Radiology on 04-14-2024 [facility] Work Phone: [facility] TRAN[facility]AG[facility]ALon [address] [address] Ultrasound Report Signed Patient: INDU ST MR#: [id number] : 1995 Acct:[id number] Age/Sex: 28 / F ADM Date: 04/08/24 Loc: US Attending Dr: Jade Ledbetter M.D. Ordering Physician: Jade Ledbetter M.D. Date of Service: 04/08/24 Procedure(s): US pelvis transvaginal Accession Number(s): [id number] cc: CAROLYNE COLLAZO ; Jade Ledbetter M.D. [address] [address] Patient Name: INDU ST MRN: [facility]:[id number] date: 1995 Sex: F Assigned Patient Location: US Current Patient Location: US Accession/Order Number: [id number] Exam Date: 04/08/2024 13:45 Report Date: 04/08/2024 [...] as detailed above. Electronically authenticated by: BRIAN NAYAK Date: 04/08/2024 14:39 Dictated By: Brian Nayak M.D. Signed By: 04/08/24 1442 DD/ 1431 TD/TT: Button Pusher: [facility] Radiology, Radiologi MD de - 04/08/[address] [address] Ultrasound Report Signed Patient: INDU ST MR#: [id number] : 1995 Acct:[id number] Age/Sex: 28 / F ADM Date: 04/08/24 Loc: US Attending Dr: Jade Ledbetter M.D. Ordering Physician: Jade Ledbetter M.D. Date of Service: 04/08/24 Procedure(s): US pelvis transvaginal Accession Number(s): [id number] cc: CAROLYNE COLLAZO ; Jade Ledbetter M.D. The [place] [address] Patient Name: INDU ST MRN: [id number] date: 1995 Sex: F Assigned Patient Location: US Current Patient Location: US Accession/Order Number: [id number] Exam Date: 04/08/2024 13:45 Report Date: 04/08/2024 [...] as detailed above. Electronically authenticated by: BRIAN NAYAK Date: 04/08/2024 14:39 Dictated By: Brian Nayak M.D. Signed By: 04/08/24 1442 DD/ 143 TD/TT: Button Pusher: [facility] Radiology Study observation (narrative) [facility] US PELVIS TRANSVAGINALOrdere d By: Radiologist Radiology on 04-08-2024 [facility] Work Phone: MLR HEMOGLOBIN A1Con 025 Glucose [Mass/Vol] 105 mg/dL [facility] HbA1c (Bld) [Mass fraction] 5.3 % 4.5 - 6.2 % [facility] Comment on above: ADA RECOMMENDED LIMI T 4.0 - 6.0 ADA THERAPEUTIC TARGET < 7.0 ACTION SUGGESTED > 7.0 [facility] JESUS Individual Abson 024 Anti-Centro B Ab See Refr Report Invalid Interpretation Code [facility] Comment on above: Performed By: #### 2 [id number] #### [facility] [address] [place] [address] WRITTEN AUTHORIZATIONon 02-02 Written Authorization Comment Invalid Interpretation Code [facility] Comment on above: Result Comment: Writ ten Authorization Received. Authorization received from ORIGINAL ORDER 02-20-2024 Logged by Valentina Peters Performed at: [address] [id number] PhD Randa Ochoa Performed By: #### 3 [id number] #### [facility] [address] [place] [address] RF Quanton 02-20-2024 Rheumatoid factor Qn 13.2 International_Unit/mL Invalid Interpretation Code <14.0 [facility] Comment on above: Result Comment: Perf ormed at: [address] [id number] PhD Randa Ochoa Performed By: #### 1 [id number] #### [facility] [address] [place] [address] CBC w/ Auto Diffon 02-17- 4 Basophils/100 WBC (Bld) 0.3 % Normal 0.0-2.0 [facility] Comment on above: Performed By: #### 2 [id number] #### [facility] [address] [place] [address] Erythrocyte distribution width (RBC) [Ratio] 14.3 % High 10.9-14.2 [facility] Comment on above: Performed By: #### 2 [id number] #### [facility] [address] [place] [address] Hematocrit (Bld) [Volume fraction] 40.4 % Normal 34.0-46.0 [facility] Comment on above: Performed By: #### 2 [id number] #### [facility] [address] [place] [address] Lymphocytes/100 WBC (Bld) 16.1 % Normal 14.0-50.0 [facility] Comment on above: Performed By: #### 2 [id number] #### [facility] [address] [place] [address] Neutrophils/100 WBC (Bld) 75.3 % High 36.0-75.0 [facility] Comment on above: Performed By: #### 2 [id number] #### [facility] [address] [place] [address] Platelet mean volume (Bld) [Entitic vol] 8.5 fL Normal 6.4-10.8 [facility] Comment on above: Performed By: #### 2 [id number] #### [facility] [address] [place] [address] Basophils/Leukocytes Auto (Bld) [Pure # fraction] 0.0 E9/L Normal 0.0-0.2 [facility] Comment on above: Performed By: #### 2 [id number] #### [facility] [address] [place] [address] Eosinophils (Bld) [#/Vol] 0.0 E9/L Normal 0.0-0.5 [facility] Comment on above: Performed By: #### 2 [id number] #### [facility] [address] [place] [address] Eosinophils/100 WBC (Bld) 0.4 % Normal 0.0-8.0 [facility] Comment on above: Performed By: #### 2 [id number] #### [facility] [address] [place] [address] Hemoglobin (Bld) [Mass/Vol] 14.2 g/dL Normal 12.0-16.0 [facility] Comment on above: Performed By: #### 2 [id number] #### [facility] [address] [place] [address] Lymphocytes (Bld) [#/Vol] 1.1 E9/L Normal 1.0-4.0 [facility] Comment on above: Performed By: #### 2 [id number] #### [facility] [address] [place] [address] MCH (RBC) [Entitic mass] 30.4 pg Normal 27.0-34.0 [facility] Comment on above: Performed By: #### 2 [id number] #### [facility] [address] [place] [address] MCHC (RBC) [Mass/Vol] 35.1 g/dL Normal 31.4-36.0 [facility] Comment on above: Performed By: #### 2 098736 #### [facility] [address] [place] [address] MCV (RBC) [Entitic vol] 86.7 fL Normal 80.0-100.0 [facility] Comment on above: Performed By: #### 2 103191 #### [facility] [address] [place] [address] Monocytes (Bld) [#/Vol] 0.5 E9/L Normal 0.2-1.0 [facility] Comment on above: Performed By: #### 2 [id number] #### [facility] [address] [place] [address] Neutrophils (Bld) [#/Vol] 5.1 E9/L Normal 2.0-7.5 [facility] Comment on above: Performed By: #### 2 778874 #### [facility] [address] [place] [address] Platelet 235.0 E9/L Normal 150.0-500.0 [facility] Comment on above: Performed By: #### 2 047145 #### [facility] [address] [place] [address] RBC (Bld) [#/Vol] 4.7 E12/L Normal 4.3-5.9 [facility] Comment on above: Performed By: #### 2 [id number] #### [facility] [address] [place] [address] WBC corrected for nucl RBC Auto (Bld) [#/Vol] 6.8 E9/L Normal 4.0-11.0 [facility] Comment on above: Performed By: #### 2 619131 #### [facility] [address] [place] [address] CHEMISTRYOrdered By: SYSTEM SYSTEM on 02-18-2024 Albumin [...] 02-18-2024 Albumin [Mass/Vol] 4.5 g/dL Normal 3.3-5.0 [facility] Comment on above: Performed By: #### 2 [id number] #### [facility] [address] [place] [address] Albumin/Globulin (S) [Mass conc ratio] 1.6 Normal 1.1-2.2 [facility] Comment on above: Performed By: #### 2 782681 #### [facility] [address] [place] [address] ALP [Catalytic activity/Vol] 55 Int._Unit/L Normal 21-98 [facility] Comment on above: Performed By: #### 2 947193 #### [facility] [address] [place] [address] ALT No additional P-5'-P [Catalytic activity/Vol] 13 Int._Unit/L Normal 6-46 [facility] Comment on above: Performed By: #### 2 530271 #### [facility] [address] [place] [address] Anion gap [Moles/Vol] 14 mmol/L Normal 6-16 [facility] Comment on above: Performed By: #### 2 198191 #### [facility] [address] [place] [address] AST [Catalytic activity/Vol] 13 Int._Unit/L Normal 5-43 [facility] Comment on above: Performed By: #### 2 884866 #### [facility] [address] [place] [address] Bilirubin [Mass/Vol] 0.5 mg/dL Normal 0.0-1.1 [facility] Comment on above: Performed By: #### 2 052801 #### [facility] [address] [place] [address] Calcium [Mass/Vol] 9.3 mg/dL Normal 8.9-11.1 [facility] Comment on above: Performed By: #### 2 373007 #### [facility] [address] [place] [address] Chloride [Moles/Vol] 103 mmol/L Normal 101-111 [facility] Comment on above: Performed By: #### 2 872078 #### [facility] [address] [place] [address] CO2 [Moles/Vol] 26 mmol/L Normal 21-31 [facility] Comment on above: Performed By: #### 2 262111 #### [facility] [address] [place] [address] Creatinine [Mass/Vol] 0.7 mg/dL Normal 0.5-1.3 [facility] Comment on above: Performed By: #### 2 677211 #### [facility] [address] [place] [address] Globulin (S) [Mass/Vol] 2.9 g/dL Normal 1.4-4.0 [facility] Comment on above: Performed By: #### 2 769267 #### [facility] [address] [place] [address] Glucose [Mass/Vol] 86 mg/dL Normal 55-199 [facility] Comment on above: Performed By: #### 2 717460 #### [facility] [address] [place] [address] Potassium [Moles/Vol] 4.0 mmol/L Normal 3.5-5.3 [facility] Comment on above: Performed By: #### 2 186812 #### [facility] [address] [place] [address] Protein [Mass/Vol] 7.4 g/dL Normal 6.0-7.8 [facility] Comment on above: Performed By: #### 2 152763 #### [facility] [address] [place] [address] Sodium [Moles/Vol] 139 mmol/L Normal 135-145 [facility] Comment on above: Performed By: #### 2 079946 #### [facility] [address] [place] [address] Urea nitrogen [Mass/Vol] 13 mg/dL Normal 5-21 [facility] Comment on above: Performed By: #### 2 [id number] #### [facility] [address] [place] [address] Urea nitrogen/Creatinine [Mass ratio] 19 No Units Normal 10-20 [facility] Comment on above: Performed By: #### 2 [id number] #### [facility] [address] [place] [address] [facility] [place] W/ AUTO DIFFon 12- EOSINOPHILS/100 LEUKOCYTES:NFR:PT:BLD:Q N:AUTOMATED COUNT 0.4 % 0.0 - 8.0 % [facility] EOSINOPHILS:NCNC:PT:BLD :QN: 0 [facility] BASOPHILS/LEUKOCYTES:NF R.DF:PT:BLD:QN:AUTOMATE D COUNT 0 [facility] ERYTHROCYTE MEAN CORPUSCULAR HEMOGLOBIN CONCENTRATION:MCNC:PT:R BC:QN 35.1 [facility] ERYTHROCYTE MEAN CORPUSCULAR HEMOGLOBIN:ENTMASS:PT:R BC:QN 30.4 pg 27.0 - 34.0 pg [facility] ERYTHROCYTE MEAN CORPUSCULAR VOLUME:ENTVOL:PT:RBC:QN :AUTOMATED COUNT 86.7 fL 80.0 - 100.0 fL [facility] ERYTHROCYTES:NCNC:PT:BL D:QN:AUTOMATED COUNT 4.7 [facility] HEMOGLOBIN:MCNC:PT:BLD: QN: 14.2 [facility] LEUKOCYTES 6.8 [facility] MONOCYTES:NCNC:PT:BLD:Q N:AUTOMATED COUNT 0.5 [facility] NEUTROPHILS:NCNC:PT:BLD :QN:AUTOMATED COUNT 5.1 [facility] Interpretation and review of laboratory results Abnormal [facility] LYMPHOCYTES:NCNC:PT:BLD :QN: 1.1 [facility] Platelets (Bld) [#/Vol] 235 10*3/uL [facility] Original Ordering Provider: [facility] HEMATOLOGYOrdered By: SYSTEM SYSTEM on [...] 14 mm/h Normal 0 - 34 mm/hr [facility] HemeAutoSS Sed Rate Automatedon 024 ESR (Bld) [Velocity] 14 mm/h Normal 0-34 [facility] Comment on above: Performed By: #### 1 [id number] #### [facility] [address] [place] [address] eGFRon 02-18-2024 eGFR 120 mL/min/1.73 m2 Normal >=59 [facility] Comment on above: Performed By: #### 1 [id number] #### [facility] [address] [place] [address] ALL THYROID STIM HORMONEon 1 04-15-2023 TSH Qn 1.748 m[IU]/L [facility] No Panel Informationon 02-12 [facility] PREG QUANT HCGon 024 HCG QUANTITATIVE <1 mIU/mL [facility] Comment on above: 5-50 0.2-1 WEEK 50-500 1-2 WEEKS 100-5,000 2-3 WEEKS 500-10,000 3-4 WEEKS 1,000-50,000 4-5 WEEKS 10,000-100,000 5-6 WEEKS 15,000-200,000 6-8 WEEKS 10,000-100,000 2-3 MONTHS [facility] PREG QUANT HCGon 024 HCG QUANTITATIVE <1 mIU/mL [facility] Comment on above: 5-50 0.2-1 WEEK 50-500 1-2 WEEKS 100-5,000 2-3 WEEKS 500-10,000 3-4 WEEKS 1,000-50,000 4-5 WEEKS 10,000-100,000 5-6 WEEKS 15,000-200,000 6-8 WEEKS 10,000-100,000 2-3 MONTHS [facility] ALL PROGESTERONEon 4 PROGESTERONE 10.8 ng/mL . [facility] Comment on above: Follicular phase 0.1 - 0.9 Luteal phase 1.8 - 23.9 Ovulation phase 0.1 - 12.0 First trimester 11.0 - 44.3 Second trimester 25.4 - 83.3 Third trimester 58.7 - 214.0 Postmenopausal 0.0 - 0.1 Performed at: [facility] [address] [id number] Level Vial Inspector: Don Tolentino PhD, Phone: [phone] [facility] Surgical Pathology Reporton 10-17-2023 [place] [address]- Surgical Pathology Report Collected Date/Time: 10/15/2023 09:32 [...] is entirely submitted in one cassette. (DC) DC:[facility] Microscopic Description A-C: Microscopic examination performed unless gross only specified. The use of one or more reagents in the above tests is regulated as an analyte specific reagent (ASR). The test or tests are ordered following initial H&E microscopic examination. The performance characteristics were determined by the [facility] of [facility]. They have not been cleared or approved by the [place] Food and Drug Administration. The FDA has determined that such clearance or approval is not necessary. These tests are used for clinical purposes. They should not be regarded as investigational or for research. Appropriate positive and negative controls are performed and are acceptable. Normal [facility] Comment on above: Performed By: #### 4 [id number] #### [facility] [address] [place] [address] Main OR Intraoperative Recor nasir 10-16-2023 Main OR Intraoperative Record Main OR Intraoperative Record IntraOp Document Type FT Summary Primary Physician: Alex Knutson MD Finalized Date/Time: 10/16/23 12:11:53 Pt. Name: INDU ST Raudel/Sex: 1995 Female Med Rec #: [id number] Physician: Alex Knutson MD Financial #: [id number] Pt. Type: O Room/Bed: / Admit/Disch: 10/15/23 06:46:50 - 10/15/23 23:59:59 Institution: Case Times FT Entry 1 Patient Times In Room 10/15/23 09:16:00 Out Room 10/15/23 09:40:00 Procedure Times Start 10/15/23 09:21:00 Stop 10/15/23 09:38:00 Anesthesia Times Start 10/15/23 09:16:00 Stop 10/15/23 09:40:00 Time at [facility] 10/15/23 09:29:00 Last Modified By: Brennan WHITE, Kristen 10/15/23 09:40:16 General Comments: 925-EGD completed/AW RN 0928-Colonoscopy started/AW RN 10/16/23 Chart opened to review and send charges [facility]FA Case Attendance FT Entry 1 Entry 2 Entry 3 Case Attendee Lenny Moreno DO, RN, Promise Willis Role Performed Anesthesiologist of Open End Spinning Operator - Primary Scrub - Primary Record Time In 10/15/23 09:16:00 10/15/23 09:16:00 10/15/23 09:16:00 Time Out 10/15/23 09:40:00 10/15/23 09:40:00 10/15/23 09:40:00 Procedure EGD AND COLONOSCOPY(.) EGD AND COLONOSCOPY(.) EGD AND COLONOSCOPY(.) Comments Last Modified By: Brennan RN, Kristen Amin RN, Kristen Larsen RN 10/15/23 [...] Amin RN, Miles, Kirstyn K, Mouchli MD, Alex Berry Time Out Complete 10/15/23 09:19:00 [...] and tissue Entry 1 Skin Integrity Intact, [place], Warm, & Skin Abnormality No Dry Outcomes [...] and symptom (more content not included)... Normal [facility] B hCG Qualon 10-15-2023 Beta HCG ( test) Ql Negative Normal [facility] Comment on above: Performed By: #### 2 [id number] #### [facility] [address] [place] [address] Discharge Instructionson Discharge Instructions Discharge Instruc tions INDU TS :1995 Visit Date:10/15/2023 Inpatient Discharge Instructions Your [...] weeks Comments: Call for any problems. Where: [address] [place] [address], [address] [place] [address]- [phone] Business (1) Medications What How Much When [...] MEDICATIONS Yo (more content not included)... Normal [facility] Comment on above: Result Comment: Elec [...] Daily, # 527 gm, Refills(s) 5, Pharmacy: [facility] #[id number], 167, cm, 09/13/23 14:57:00 EDT, Height/Length Dosing, 48.9, kg, 09/13/23 14:57:00 EDT, Weight Dosing Pantoprazole [address] Tab: 40 mg = 1 tab(s), Oral, Daily, # 30 tab(s), Refills(s) 4, Pharmacy: [facility] #[id number], 167, cm, 09/13/23 14:57:00 EDT, Height/Length Dosing, [...] duodenum. Biopsies obtained Images Procedure images: Rec1_hd_video_ [id number].jpg Rec1_hd_video_ [id number].jpg Rec1_hd_video_ [id number].jpg Rec1_hd_video_ [id number].jpg Rec1_hd_video_ [id number].jpg Rec1_hd_video_ [id number].jpg . Post-Procedure Complications: none. Estimated blood loss: minimal. Specimens: sent to pathology. Devices/ implants: none left in place. Impression and Plan mild gastropathy Recommendations: -Resume previous diet -Resume home medications -Await pathology results, follow in GI clinic in 1-2 after discharge Ramón [facility] Comment on above: Other Comment: Griselda blanco Attachment - attachment storage system not supported [id number] Can be viewed in source system Missing Attachment - attachment storage system not supported [id number] Can be viewed in source system Missing Attachment - attachment storage system not supported [id number] Can be viewed in source system Missing Attachment - attachment storage system not supported [id number] Can be viewed in source system Missing Attachment - attachment storage system not supported [id number] Can be viewed in source system Missing Attachment - attachment storage system not supported [id number] Can be viewed in source system Main OR PACU I Recordon 10-03 Main OR PACU I Record Main OR PACU I Rec ord PACU Phase I Document Type FT Summary Primary Physician: lAex Knutson MD Finalized Date/Time: 10/15/23 10:19:29 Pt. Name: INDU ST Raudel/Sex: 1995 Female Med Rec #: [id number] Physician: Alex Knutson MD Financial #: [id number] Pt. Type: O Room/Bed: / Admit/Disch: 10/15/23 [...] By: Mery Crocker RN 10/15/23 10:19 Normal [facility] Main OR Preoperative Recordo n 10-15-2023 Main OR Preoperative Record Main OR Preoperative Record Holding Area Document Type FT Summary Primary Physician: Alex Knutson MD Finalized Date/Time: 10/15/23 07:13:13 Pt. Name: INDU ST/Sex: 1995 Female Med Rec #: [id number] Physician: Alex Knutson MD Financial #: [id number] Pt. Type: O Room/Bed: / Admit/Disch: 10/15/23 [...] By: Ofe Atkins RN 10/15/23 07:13 Normal [facility] SEROLOGYOrdered By: Germaine Sauer on 10-15-2023 Beta HCG ( test) Ql Negative (10/15/23 7:55 AM) Normal [facility] [place] Amb[place] Visit Summaryon 0 09-13-2023 Ambulatory Visit Summary Ambulatory Visit Summary INDU ST :1995 Visit Date:09/13/2023 Ambulatory Visit Instructions Your Diagnosis Weight loss Nausea and vomiting Heartburn Bipolar disorder Stress-related physiological response affecting medical condition Visceral hypersensitivity syndrome Abnormal CT of the abdomen Esophagitis Your Care Team Attending Physician - Alex Knutson MD Primary Care Physician - Carolyne Collazo MD Referring Physician - Carolyne Collazo MD This Is Your Medications List pantoprazole [...] Follow-Up Appointments Sunday 9:00 AM EDT Where: [facility] Medications What How Much When Why Instructions New pantoprazole (Pantoprazole [address] Tab) 1 Tablets By Mouth Every day Weight loss Nausea and vomiting Heartburn Bipolar disorder Stress-related physiological response affecting medical condition Visceral hypersensitivity syndrome Refills: 4 Pickup at [facility] #[id number] New polyethylene glycol 3350 (Miralax 3350 17 gram packet) 17 Gram By Mouth Every day Weight loss Nausea and vomiting Heartburn Bipolar disorder Stress-related physiological response affecting medical condition Visceral hypersensitivity syndrome Refills: 5 Pickup at [facility] #[id number] Unchanged alprazolam (Xanax 0.5 mg Tab) 1 [...] physician if questions or concerns Pharmacy Information [facility] #[id number]: [address], [place] [phone] Allergies No Known Medication Allergies Problems Ongoing [...] for choosing us for your care. Normal [facility] Gastroenterology Office/Clin ic Noteon 09-13-2023 Gastroenterology [...] Daily, # 30 tab(s), Refills(s) 4, Pharmacy: [facility] #[id number], 167, cm, 09/13/23 14:57:00 EDT, Height/Length Dosing, 48.9, kg, 09/13/23 14:57:00 EDT, Weight Dosing polyethylene glycol 3350, 17 gm, Oral, Daily, # 527 gm, Refills(s) 5, Pharmacy: [facility] #[id number], 167, cm, 09/13/23 14:57:00 EDT, Height/Length Dosing, 48.9, kg, 09/13/23 14:57:00 EDT, Weight Dosing Colonoscopy (Hospital Procedure) EGD Endoscopy (Hospital Procedure) 2. Nausea and vomiting (R11.2: Nausea with vomiting, unspecified) Ordered: pantoprazole, 40 mg = 1 tab(s), Oral, Daily, # 30 tab(s), Refills(s) 4, Pharmacy: [facility] #[id number], 167, cm, 09/13/23 14:57:00 EDT, Height/Length Dosing, 48.9, kg, 09/13/23 14:57:00 EDT, Weight Dosing polyethylene glycol 3350, 17 gm, Oral, Daily, # 527 gm, Refills(s) 5, Pharmacy: [facility] #[id number], 167, cm, 09/13/23 14:57:00 EDT, Height/Length Dosing, 48.9, kg, 09/13/23 14:57:00 EDT, Weight Dosing Colonoscopy (Hospital Procedure) EGD Endoscopy (Hospital Procedure) 3. Heartburn (R12: Heartburn) Ordered: pantoprazole, 40 mg = 1 tab(s), Oral, Daily, # 30 tab(s), Refills(s) 4, Pharmacy: [facility] #[id number], 167, cm, 09/13/23 14:57:00 EDT, Height/Length Dosing, 48.9, kg, 09/13/23 14:57:00 EDT, Weight Dosing polyethylene glycol 3350, 17 gm, Oral, Daily, # 527 gm, Refills(s) 5, Pharmacy: [facility] #[id number], 167, cm, 09/13/23 14:57:00 EDT, Height/Length Dosing, 48.9, kg, 09/13/23 14:57:00 EDT, Weight Dosing Colonoscopy (Hospital Procedure) EGD Endoscopy (Hospital Procedure) 4. Bipolar disorder (F31.9: Bipolar disorder, unspecified) Ordered: pantoprazole, 40 mg (more content not included)... Normal [facility] Comment on above: Result Comment: Elec tronically Signed By: Zenia ELLISON, Alex Berry\.br\Date and Time Signed: 09/13/23 15:22 EDT Angelic 08-14-2023 JOSEN Telephone (ENDOMN) -------- INDU ST ([id number]) 1995 F Date Time Provider Department 08/14/23 KARINA VINCENT During your visit today, we recorded the following information about you: Twyla Caraballo MA 08/14/2023 11:09 AM Signed Received MRI results completed 08/02/2023, scanned to chart Twyla Caraballo Reeling Machine Operator II Endocrinology AND Metabolism [facility] F20 AND X20 Allergies As of [...] Date: 08/14/2023 (None) Encounter Status:Closed by TWYLA CARABALLO on 08/14/23 Normal [facility] CBC W Auto Differential pane l (Bld)on 07-20-2023 Basophils (Bld) [#/Vol] 0.03 10*3/uL [facility] Basophils/100 WBC (Bld) 0.3 % 0.0 - 2.0 % [facility] Eosinophils (Bld) [#/Vol] 0.00 10*3/uL [facility] Eosinophils/100 WBC (Bld) 0.0 % 0.0 - 6.0 % [facility] Erythrocyte distribution width (RBC) [Ratio] 14.5 % 11.5 - 14.5 % [facility] Hematocrit (Bld) [Volume fraction] 39.1 % 36.0 - 46.0 % [facility] Hemoglobin (Bld) [Mass/Vol] 13.5 g/dL 12.0 - 16.0 g/dL [facility] Immature granulocytes (Bld) [#/Vol] 0.03 10*3/uL [facility] Immature granulocytes/100 WBC (Bld) 0.3 % 0.0 - 0.9 % [facility] Comment on above: Immature Granulocyte Count (IG) includes promyelocytes, myelocytes and metamyelocytes but does not include bands. Percent differential counts (%) should be interpreted in the context of the absolute cell counts (cells/UL). Interpretation and review of laboratory results Abnormal [facility] Lymphocytes (Bld) [#/Vol] 0.98 10*3/uL Low [facility] Lymphocytes/100 WBC (Bld) 8.5 % 13.0 - 44.0 % [facility] MCH (RBC) [Entitic mass] 28.7 pg 26.0 - 34.0 pg [facility] MCHC (RBC) [Mass/Vol] 34.5 g/dL 32.0 - 36.0 g/dL [facility] MCV (RBC) [Entitic vol] 83 fL 80 - 100 fL [facility] Monocytes (Bld) [#/Vol] 0.13 10*3/uL [facility] Monocytes/100 WBC (Bld) 1.1 % 2.0 - 10.0 % [facility] Neutrophils (Bld) [#/Vol] 10.32 10*3/uL High [facility] Comment on above: Percent differential counts (%) should be interpreted in the context of the absolute cell counts (cells/uL). Neutrophils/100 WBC (Bld) 89.8 % 40.0 - 80.0 % [facility] Nucleated RBC/100 WBC (Bld) [Ratio] 0.0 % [facility] Platelets (Bld) [#/Vol] 290 10*3/uL [facility] RBC (Bld) [#/Vol] 4.71 10*6/uL [facility] WBC (Bld) [#/Vol] 11.5 10*3/uL [facility] Basophils (Bld) [#/Vol] 0.03 x10*3/uL Normal 0.00-0.10 [facility] Comment on above: Performed By: #### 5 7021-8 #### JIMENA Mark ([id number]) [facility] ([facility]) [address] [place] [address] Basophils/100 WBC (Bld) 0.3 % Normal 0.0-2.0 [facility] Comment on above: Performed By: #### 5 7021-8 #### JIMENA Mark ([id number]) [facility] ([facility]) [address] [place] [address] Eosinophils (Bld) [#/Vol] 0.00 x10*3/uL Normal 0.00-0.70 [facility] Comment on above: Performed By: #### 5 7021-8 #### JIMENA Mark ([id number]) [facility] ([facility]) [address] [place] [address] Eosinophils/100 WBC (Bld) 0.0 % Normal 0.0-6.0 [facility] Comment on above: Performed By: #### 5 7021-8 #### JIMENA Mark ([id number]) [facility] ([facility]) [address] [place] [address] Erythrocyte distribution width (RBC) [Ratio] 14.5 % Normal 11.5-14.5 [facility] Comment on above: Performed By: #### 5 7021-8 #### JIMENA Mark ([id number]) [facility] ([facility]) [address] [place] [address] Hematocrit (Bld) [Volume fraction] 39.1 % Normal 36.0-46.0 [facility] Comment on above: Performed By: #### 5 7021-8 #### JIMENA Mark ([id number]) [facility] ([facility]) [address] [place] [address] Hemoglobin (Bld) [Mass/Vol] 13.5 g/dL Normal 12.0-16.0 [facility] Comment on above: Performed By: #### 5 7021-8 #### JIMENA Mark ([id number]) [facility] ([facility]) [address] [place] [address] Immature granulocytes (Bld) [#/Vol] 0.03 x10*3/uL Normal 0.00-0.70 [facility] Comment on above: Performed By: #### 5 7021-8 #### JIMENA Mark ([id number]) [facility] ([facility]) [address] [place] [address]99[address] Immature granulocytes/100 WBC (Bld) 0.3 % Normal 0.0-0.9 [facility] Comment on above: Result Comment: Yanet ture Granulocyte Count (IG) includes promyelocytes, myelocytes and metamyelocytes but does not include bands. Percent differential counts (%) should be interpreted in the context of the absolute cell counts (cells/UL). Performed By: #### 5 7021-8 #### JIMENA Mark ([id number]) [facility] ([facility]) [address] [place] [address] Lymphocytes (Bld) [#/Vol] 0.98 x10*3/uL Low 1.20-4.80 [facility] Comment on above: Performed By: #### 5 7021-8 #### JIMENA Mark ([id number]) [facility] ([facility]) [address] [place] [address] Lymphocytes/100 WBC (Bld) 8.5 % Normal 13.0-44.0 [facility] Comment on above: Performed By: #### 5 7021-8 #### JIMENA Mark ([id number]) [facility] ([facility]) [address] [place] [address] MCH (RBC) [Entitic mass] 28.7 pg Normal 26.0-34.0 [facility] Comment on above: Performed By: #### 5 7021-8 #### JIMENA Mark ([id number]) [facility] ([facility]) [address] [place] [address]07[address] MCHC (RBC) [Mass/Vol] 34.5 g/dL Normal 32.0-36.0 [facility] Comment on above: Performed By: #### 5 7021-8 #### JIMENA Mark ([id number]) [facility] ([facility]) [address] [place] [address] 55877 MCV (RBC) [Entitic vol] 83 fL Normal 80-100 [facility] Comment on above: Performed By: #### 5 7021-8 #### JIMENA Mark ([id number]) [facility] ([facility]) [address] [place] [address] 17561 Monocytes (Bld) [#/Vol] 0.13 x10*3/uL Normal 0.10-1.00 [facility] Comment on above: Performed By: #### 5 7021-8 #### JIMENA Mark ([id number]) [facility] ([facility]) [address] [place] [address] 02585 Monocytes/100 WBC (Bld) 1.1 % Normal 2.0-10.0 [facility] Comment on above: Performed By: #### 5 7021-8 #### JIMENA Mark ([id number]) [facility] ([facility]) [address] [place] [address] 75469 Neutrophils (Bld) [#/Vol] 10.32 x10*3/uL High 1.20-7.70 [facility] Comment on above: Result Comment: Perc ent differential counts (%) should be interpreted in the context of the absolute cell counts (cells/uL). Performed By: #### 5 7021-8 #### JIMENA Mark ([id number]) [facility] ([facility]) [address] [place] [address]249 Neutrophils/100 WBC (Bld) 89.8 % Normal 40.0-80.0 [facility] Comment on above: Performed By: #### 5 7021-8 #### JIMENA Mark ([id number]) [facility] ([facility]) [address] [place] [address] 85411 Nucleated RBC/100 WBC (Bld) [Ratio] 0.0 /100 WBCs Normal 0.0-0.0 [facility] Comment on above: Performed By: #### 5 7021-8 #### JIMENA Mark ([id number]) [facility] ([facility]) [address] [place] [address] 10605 Platelets (Bld) [#/Vol] 290 x10*3/uL Normal 150-450 [facility] Comment on above: Performed By: #### 5 7021-8 #### JIMENA BROOKE Jas ([id number]) [facility] ([facility]) [address] [place] [address] RBC (Bld) [#/Vol] 4.71 x10*6/uL Normal 4.00-5.20 [facility] Comment on above: Performed By: #### 5 7021-8 #### JIMENA BROOKE Jas ([id number]) [facility] ([facility]) [address] [place] [address] WBC (Bld) [#/Vol] 11.5 x10*3/uL High 4.4-11.3 [facility] Comment on above: Performed By: #### 5 7021-8 #### JIMENA BROOKE Jas ([id number]) [facility] ([facility]) [address] [place] [address] CHEST ABDOMEN PELVIS W IV CONTRASTon 07-20-2023 CT CHEST ABDOMEN PELVIS W IV CONTRAST Interpreted By: Mag Santiago, STUDY: CT CHEST ABDOMEN PELVIS W IV CONTRAST; 07/20/2023 5:39 pm INDICATION: Signs/Symptoms:Persisten t vomiting, epigastric pain in the chest.. COMPARISON: Chest x-ray 07/20/2023. ACCESSION NUMBER(S): [id number] ORDERING CLINICIAN: ABIODUN OCHOA TECHNIQUE: Axial CT [...] Mag Santiago 07/20/2023 6:51 PM Dictation workstation: [id number] [facility] CT Chest and Abdomen and Pel [...] Mag Santiago 07/20/2023 6:51 PM Dictation workstation: [id number] Interpreted By: Mag Santiago, STUDY: CT CHEST ABDOMEN PELVIS W IV CONTRAST; 07/20/2023 5:39 pm INDICATION: Signs/Symptoms:Persisten t vomiting, epigastric pain in the chest.. COMPARISON: Chest x-ray 07/20/2023. ACCESSION NUMBER(S): [id number] ORDERING CLINICIAN: ABIODUN OCHOA TECHNIQUE: Axial CT [...] chest.. COMPARISON: Chest x-ray 07/20/2023. ACCESSION NUMBER(S): [id number] ORDERING CLINICIAN: ABIODUN OCHOA TECHNIQUE: Axial CT [...] Mag Santiago 07/20/2023 6:51 PM Dictation workstation: [id number] [facility] Work Phone: Radiology Study observation (narrative) [facility] Work Phone: CT Chest and Abdomen and Pel vis W contrast IVOrdered By: Mag Santiago on 07-20-2023 [facility] Work Phone: Choriogonadotropin.beta subu niton 07-20-2023 HCG.beta subunit Qn m[IU]/mL Normal <5 [facility] Comment on above: Order Comment: Total HCG measurement is performed using the [employer] [place] Access Immunoassay which detects intact HCG and free beta HCG subunit. This test is not indicated for use as a tumor marker. HCG testing is performed using a different test methodology at [facility] than other [facility]. Direct result comparison should only be made within the same method. Performed By: #### 2 1198-7 #### JIMENA Mark ([id number]) [facility] ([facility]) [address] [place], [place] [id number] Comprehensive metabolic 2000 panelon 07-20-2023 Albumin BCP dye [Mass/Vol] 4.7 g/dL 3.4 - 5.0 g/dL [facility] ALP [Catalytic activity/Vol] 47 U/L 33 - 110 U/L [facility] ALT With P-5'-P [Catalytic activity/Vol] 14 U/L 7 - 45 U/L [facility] Comment on above: Patients treated wit h Sulfasalazine may generate falsely decreased results for ALT. Anion gap [Moles/Vol] 18 mmol/L 10 - 2 0 mmol/L [facility] AST With P-5'-P [Catalytic activity/Vol] 15 U/L 9 - 39 U/L [facility] Bilirubin [Mass/Vol] 0.6 mg/dL 0.0 - 1 .2 mg/dL [facility] Calcium [Mass/Vol] 9.8 mg/dL 8.6 - 10. 3 mg/dL [facility] Chloride [Moles/Vol] 105 mmol/L 98 - 10 7 mmol/L [facility] CO2 [Moles/Vol] 19 mmol/L Low 21 - 32 mmol/L [facility] Creatinine [Mass/Vol] 0.77 mg/dL 0.50 - 1.05 mg/dL [facility] eGFR - PINF [facility] Comment on above: Calculations of lesli mated GFR are performed using the 2020 CKD-EPI Study Refit equation without the race variable for the IDMS-Traceable creatinine methods. https://jasn.asnjournals.org/content//ASN.2020 514115 Glucose [Mass/Vol] 147 mg/dL High 74 - 99 mg/dL [facility] Interpretation and review of laboratory results Abnormal [facility] Potassium [Moles/Vol] 3.8 mmol/L 3.5 - 5.3 mmol/L [facility] Protein [Mass/Vol] 7.3 g/dL 6.4 - 8.2 g/dL [facility] Sodium [Moles/Vol] 138 mmol/L 136 - 145 mmol/L [facility] Urea nitrogen [Mass/Vol] 15 mg/dL 6 - 23 mg/dL [facility] Albumin BCP dye [Mass/Vol] 4.7 g/dL Normal 3.4-5.0 [facility] Comment on above: Performed By: #### 2 4323-8 #### JIMENA Mark ([id number]) [facility] ([facility]) [address] [place] [address] ALP [Catalytic activity/Vol] 47 U/L Normal 33-110 [facility] Comment on above: Performed By: #### 2 4323-8 #### JIMENA Mark ([id number]) [facility] ([facility]) [address] [place] [address] 48823 ALT With P-5'-P [Catalytic activity/Vol] 14 U/L Normal 7-45 [facility] Comment on above: Result Comment: Edel ents treated with Sulfasalazine may generate falsely decreased results for ALT. Performed By: #### 2 4323-8 #### JIMENA Mark ([id number]) [facility] ([facility]) [address] [place] [address]56 Anion gap [Moles/Vol] 18 mmol/L Normal 10-20 [facility] Comment on above: Performed By: #### 2 4323-8 #### JIMENA Mark ([id number]) [facility] ([facility]) [address] [place] [address] 90077 AST With P-5'-P [Catalytic activity/Vol] 15 U/L Normal 9-39 [facility] Comment on above: Performed By: #### 2 4323-8 #### JIMENA Mark ([id number]) [facility] ([facility]) [address] [place] [address] 76963 Bilirubin [Mass/Vol] 0.6 mg/dL Normal 0.0-1.2 [facility] Comment on above: Performed By: #### 2 4323-8 #### JIMENA Mark ([id number]) [facility] ([facility]) [address] [place] [address] 33356 Calcium [Mass/Vol] 9.8 mg/dL Normal 8.6-10.3 [facility] Comment on above: Performed By: #### 2 4323-8 #### JIMENA Mark ([id number]) [facility] ([facility]) [address] [place] [address] 94809 Chloride [Moles/Vol] 105 mmol/L Normal 98-107 [facility] Comment on above: Performed By: #### 2 4323-8 #### JIMENA Mark ([id number]) [facility] ([facility]) [address] [place] [address] 15662 CO2 [Moles/Vol] 19 mmol/L Low 21-32 [facility] Comment on above: Performed By: #### 2 4323-8 #### JIMENA Mark ([id number]) [facility] ([facility]) [address] [place] [address] 46039 Creatinine [Mass/Vol] 0.77 mg/dL Normal 0.50-1.05 [facility] Comment on above: Performed By: #### 2 4323-8 #### JIMENA Mark ([id number]) [facility] ([facility]) [address] [place] [address] 02764 GFR/1.73 sq M.predicted MDRD (S/P/Bld) [Vol rate/Area] mL/min/{1.73_m2} Normal >60 [facility] Comment on above: Result Comment: Calc ulations of estimated GFR are performed using the 2020 CKD-EPI Study Refit equation without the race variable for the IDMS-Traceable creatinine methods. https://jasn.asnjournals.org/content/early//ASN.2020 967746 Performed By: #### 2 4323-8 #### JIMENA Mark ([id number]) [facility] ([facility]) [address] [place] [address] 09299 Glucose [Mass/Vol] 147 mg/dL High 74-99 [facility] Comment on above: Performed By: #### 2 4323-8 #### JIMENA Mark ([id number]) [facility] ([facility]) [address] [place] [address] 78574 Potassium [Moles/Vol] 3.8 mmol/L Normal 3.5-5.3 [facility] Comment on above: Performed By: #### 2 4323-8 #### JIMENA Mark ([id number]) [facility] ([facility]) [address] [place] [address] 41207 Protein [Mass/Vol] 7.3 g/dL Normal 6.4-8.2 [facility] Comment on above: Performed By: #### 2 4323-8 #### JIMENA Mark ([id number]) [facility] ([facility]) [address] [place] [address] 49580 Sodium [Moles/Vol] 138 mmol/L Normal 136-145 [facility] Comment on above: Performed By: #### 2 4323-8 #### JIMENA Mark ([id number]) [facility] ([facility]) [address] [place] [address] Urea nitrogen [Mass/Vol] 15 mg/dL Normal 6-23 [facility] Comment on above: Performed By: #### 2 4323-8 #### JIMENA Mark ([id number]) [facility] ([facility]) [address] [place] [address] DRUG SCREEN,URINEon 07-20-19 24 Amphetamines Screen Ql (U) Negative Normal Presumptive Negative [facility] Comment on above: Order Comment: Drug screen results are presumptive and should not be used to assess compliance with prescribed medication. Contact the performing [facility] laboratory to add-on definitive confirmatory testing [...] By: #### D RUG3 #### JIMENA Mark ([id number]) [facility] ([facility]) [address] [place] [address] 68586 Barbiturates Screen Ql (U) Negative Normal Presumptive Negative [facility] Comment on above: Order Comment: Drug screen results are presumptive and should not be used to assess compliance with prescribed medication. Contact the performing [facility] laboratory to add-on definitive confirmatory testing [...] By: #### D RUG3 #### JIMENA Mark ([id number]) [facility] ([facility]) [address] [place] [address] 86715 Benzodiazepines Ql (U) Negative Normal Presu mptive Negative [facility] Comment on above: Order Comment: Drug screen results are presumptive and should not be used to assess compliance with prescribed medication. Contact the performing [facility] laboratory to add-on definitive confirmatory testing [...] By: #### D RUG3 #### JIMENA Mark ([id number]) [facility] ([facility]) [address] [place] [address] 56429 Benzoylecgonine Screen Ql (U) Negative Normal Presumptive Negative [facility] Comment on above: Order Comment: Drug screen results are presumptive and should not be used to assess compliance with prescribed medication. Contact the performing [facility] laboratory to add-on definitive confirmatory testing [...] By: #### D RUG3 #### JIMENA Mark ([id number]) [facility] ([facility]) [address] [place] [address] 22531 Cannabinoids Screen Ql (U) Positive Abnormal Presumptive Negative [facility] Comment on above: Order Comment: Drug screen results are presumptive and should not be used to assess compliance with prescribed medication. Contact the performing [facility] laboratory to add-on definitive confirmatory testing [...] By: #### D RUG3 #### JIMENA Mark ([id number]) [facility] ([facility]) [address] [place] [address] 75693 fentaNYL+Norfentanyl Screen Ql (U) Negative Normal Presumptive Negative [facility] Comment on above: Order Comment: Drug screen results are presumptive and should not be used to assess compliance with prescribed medication. Contact the performing [facility] laboratory to add-on definitive confirmatory testing [...] By: #### D RUG3 #### JIMENA Mark ([id number]) [facility] ([facility]) [address] [place], [place] [id number] Methadone Screen Ql (U) Negative Normal Pres umptive Negative [facility] Comment on above: Order Comment: Drug screen results are presumptive and should not be used to assess compliance with prescribed medication. Contact the performing [facility] laboratory to add-on definitive confirmatory testing [...] CUTO FF LEVEL: 150 NG/ML The metabolite Q-eyslc-qhaoshkdrpnvwy (LAAM) is not detected by this method in concentrations that would be found in the urine of patients on LAAM therapy. Performed By: #### D RUG3 #### JIMENA Mark ([id number]) [facility] ([facility]) [address] [place] [address] 53615 Opiates Screen Ql (U) Negative Normal Presum ptive Negative [facility] Comment on above: Order Comment: Drug screen results are presumptive and should not be used to assess compliance with prescribed medication. Contact the performing [facility] laboratory to add-on definitive confirmatory testing [...] By: #### Kobi BRIONES3 #### JIMENA Mark ([id number]) [facility] ([facility]) [address] [place] [address] 48687 oxyCODONE+oxyMORphone Screen Ql (U) Negative Normal Presumptive Negative [facility] Comment on above: Order Comment: Drug screen results are presumptive and should not be used to assess compliance with prescribed medication. Contact the performing [facility] laboratory to add-on definitive confirmatory testing [...] By: #### Kobi BRIONES3 #### JIMENA Mark ([id number]) [facility] ([facility]) [address] [place] [address] 61585 Phencyclidine Ql (U) Negative Normal Presump tive Negative [facility] Comment on above: Order Comment: Drug screen results are presumptive and should not be used to assess compliance with prescribed medication. Contact the performing [facility] laboratory to add-on definitive confirmatory testing [...] reported with dextromethorphan. Performed By: #### Kobi PABLO #### JIMENA Mark ([id number]) [facility] ([facility]) [address] [place] [address] 01032 Drug Screen, Urineon 024 Amphetamines Screen Ql (U) Negative Presumptive Negative [facility] Comment on above: CUTOFF LEVEL: 500 NG /ML Cross-reactivity has been reported with high concentrations of the following drugs: buproprion, chloroquine, chlorpromazine, ephedrine, mephentermine, fenfluramine, phentermine, phenylpropanolamine, pseudoephedrine, and propranolol. Barbiturates Screen Ql (U) Negative Presumptive Negative [facility] Comment on above: CUTOFF LEVEL: 200 NG /ML Benzodiazepines Ql (U) Negative Presu mptive Negative [facility] Comment on above: CUTOFF LEVEL: 200 NG /ML Benzoylecgonine Screen Ql (U) Negative Presumptive Negative [facility] Comment on above: CUTOFF LEVEL: 150 NG /ML Cannabinoids Screen Ql (U) Positive Abnormal Presumptive Negative [facility] Comment on above: CUTOFF LEVEL: 50 NG/ ML fentaNYL+Norfentanyl Screen Ql (U) Negative Presumptive Negative [facility] Comment on above: CUTOFF LEVEL: 5 NG/M L Interpretation and review of laboratory results Abnormal [facility] Methadone Screen Ql (U) Negative Pres umptive Negative [facility] Comment on above: CUTOFF LEVEL: 150 NG /ML The metabolite A-yoyxt-echbzftwpgmddr (LAAM) is not detected by this method in concentrations that would be found in the urine of patients on LAAM therapy. Opiates Screen Ql (U) Negative Presum ptive Negative [facility] Comment on above: CUTOFF LEVEL: 300 NG /ML The opiate screen does not detect fentanyl, meperidine, or tramadol. Oxycodone is not consistently detected (refer to Oxycodone Screen, Urine result). oxyCODONE+oxyMORphone Screen Ql (U) Negative Presumptive Negative [facility] Comment on above: CUTOFF LEVEL: 100 NG /ML This test will accurately detect both oxycodone and oxymorphone. Phencyclidine Ql (U) Negative Presump tive Negative [facility] Comment on above: CUTOFF LEVEL: 25 NG/ ML Cross-reactivity has been reported with dextromethorphan. Drug screen results are presumptive and should not be used to assess compliance with prescribed medication. Contact the performing [facility] laboratory to add-on definitive confirmatory testing [...] be directed to the laboratory medical directors. [facility] ECG 12-LEADon 07-20-2023 ECG 12-LEAD Ventricular Rate 68 Atrial Rate 67 P-R Interval 110 QRS Duration 126 Q-T Interval 419 QTC Calculation(Bazett) 446 P Usk 82 R Usk 77 T Usk 67 QRS Count 11 Q Onset 249 T Offset 459 QTC Fredericia 437 Diagnosis Sinus rhythm Borderline short DC interval Nonspecific intraventricular conduction delay ST elev, probable normal early repol pattern See ED provider note for full interpretation and clinical correlation Confirmed by Lynsey Luna ([id number]) on 07/28/2023 12:23:14 PM Normal [facility] HCG.beta subunit Qnon 2023 Interpretation and review of laboratory results Normal [facility] Total HCG measuremen t is performed using the [employer] Access Immunoassay which detects intact HCG and free beta HCG subunit. This test is not indicated for use as a tumor marker. HCG testing is performed using a different test methodology at [facility] than other [facility]. Direct result comparison should only be made within the same method. [facility] Human Chorionic Gonadotropin , Serum Quantitativeon 07-20-2023 HCG.beta subunit Qn NINF [facility] Lactateon 07-20-2023 Lactate [Moles/Vol] 1.4 mmol/L 0.4 - 2. 0 mmol/L [facility] Lactate [Moles/Vol] 1.4 mmol/L Normal 0.4-2.0 [facility] Comment on above: Order Comment: Venip uncture immediately after or during the administration of Metamizole may lead to falsely low results. Testing should be performed immediately prior to Metamizole dosing. Performed By: #### 2 524-7 #### JIMENA Mark ([id number]) [facility] ([facility]) [address] [place] [address] 55729 Lactate [Moles/Vol] 2.2 mmol/L High 0.4 - 2. 0 mmol/L [facility] Lactate [Moles/Vol] 2.2 mmol/L High 0.4-2.0 [facility] Comment on above: Order Comment: Venip uncture immediately after or during the administration of Metamizole may lead to falsely low results. Testing should be performed immediately prior to Metamizole dosing. Performed By: #### 2 524-7 #### JIMENA Mark ([id number]) [facility] ([facility]) [address] [place] [address] 14203 Lactate [Moles/Vol]on 2023 Interpretation and review of laboratory results Normal [facility] Venipuncture immedia tely after or during the administration of Metamizole may lead to falsely low results. Testing should be performed immediately prior to Metamizole dosing. [facility] Interpretation and review of laboratory results Abnormal [facility] Venipuncture immedia tely after or during the administration of Metamizole may lead to falsely low results. Testing should be performed immediately prior to Metamizole dosing. [facility] Lipaseon 07-20-2023 Lipase [Catalytic activity/Vol] 10 U/L 9 - 82 U/L [facility] Lipase [Catalytic activity/V ol]on 07-20-2023 Interpretation and review of laboratory results Normal [facility] Venipuncture immedia tely after or during the administration of Metamizole may lead to falsely low results. Testing should be performed immediately prior to Metamizole dosing. [facility] Triacylglycerol lipaseon Lipase [Catalytic activity/Vol] 10 U/L Normal 9-82 [facility] Comment on above: Order Comment: Venip uncture immediately after or during the administration of Metamizole may lead to falsely low results. Testing should be performed immediately prior to Metamizole dosing. Performed By: #### 3 040-3 #### JIMENA Mark ([id number]) [facility] ([facility]) [address] [place] [address] 54714 Tropinin I.cardiac panel Hig h sensitivity methodon 07-20-2023 Interpretation and review of laboratory results Normal [facility] Less than 99th percentile of normal [...] performed using a different testing methodology at [facility] than at other [facility]. Direct result comparisons should only be made within the same method. [facility] Troponin I, High Sensitivity on 07-20-2023 Tropinin I.cardiac panel High sensitivity method ng/L 0 - 13 ng/L [facility] Troponin I.cardiac panelon 0 07-20-2023 Tropinin I.cardiac panel High sensitivity method <3 Normal 0-13 [facility] Comment on above: Order Comment: Venip uncture immediately after or during the administration of Metamizole may lead to falsely low results. Testing should be performed immediately prior to Metamizole dosing. Performed By: #### 2 524-7 #### JIMENA Mark ([id number]) [facility] ([facility]) [address] [place] [address] Urinalysis complete W Reflex Culture panel (U)on 07-20-2023 Appearance (U) Hazy Abnormal Clear [facility] Bilirubin (U) [Mass/Vol] Negative NEGATIVE [facility] Color (U) Yellow Straw, Yellow [facility] Epithelial cells.squamous Auto (Urine sed) [#/Area] 1-9 (SPARSE) Reference range not established. /HPF [facility] Glucose Auto test strip (U) [Mass/Vol] Negative NEGATIVE mg/dL [facility] Interpretation and review of laboratory results Abnormal [facility] Ketones (U) [Mass/Vol] 80 (2+) Abnormal NEGAT JAMES mg/dL [facility] Leukocyte esterase Auto test strip Ql (U) Negative NEGATIVE [facility] Mucus Auto (Urine sed) [#/Area] 4+ Reference range not established. /LPF [facility] Nitrite Auto test strip Ql (U) Negative NEGATIVE [facility] pH (U) 9.0 [pH] Abnormal 5.0, 5.5, 6.0, 6.5, 7.0, 7.5, 8.0 [facility] Protein (U) [Mass/Vol] >=500 (3+) Abnormal NEGAT JAMES mg/dL [facility] RBC (U) [#/Vol] Negative NEGATIVE [facility] RBC Auto (Urine sed) [#/Area] 1-2 NONE, 1-2, 3-5 /HPF [facility] Specific gravity (U) [Rel density] 1.025 1.005 - 1.035 [facility] Urobilinogen (U) [Mass/Vol] mg/dL NINF - 2.0 mg/dL [facility] WBC Auto (Urine sed) [#/Area] 1-5 1-5, NONE /HPF [facility] Yeast.budding Computer assisted (U) [#/Area] PRESENT Abnormal NONE /HPF [facility] Appearance (U) Hazy Normal Clear [facility] Comment on above: Performed By: #### 5 8077-9 #### JIMENA Mark ([id number]) [facility] ([facility]) [address] [place] [address] 38255 Bilirubin (U) [Mass/Vol] Negative Normal NEGATIVE [facility] Comment on above: Performed By: #### 5 8077-9 #### JIMENA Mark ([id number]) [facility] ([facility]) [address] [place] [address] 52645 Color (U) Yellow Normal Straw, Yellow [facility] Comment on above: Performed By: #### 5 8077-9 #### JIMENA Mark ([id number]) [facility] ([facility]) [address] [place] [address] 38493 Epithelial cells.squamous Auto (Urine sed) [#/Area] 1-9 (SPARSE) Normal Reference range not established. [facility] Comment on above: Performed By: #### 5 8077-9 #### JIMENA Mark ([id number]) [facility] ([facility]) [address] [place] [address] 71424 Glucose Auto test strip (U) [Mass/Vol] Negative Normal NEGATIVE [facility] Comment on above: Performed By: #### 5 8077-9 #### JIMENA Mark ([id number]) [facility] ([facility]) [address] [place] [address] 72349 Ketones (U) [Mass/Vol] 80 (2+) [facility]normal [facility] above: Performed By: #### 5 8077-9 #### JIMENA Mark ([id number]) [facility] ([facility]) [address] [place] [address] 40596 Leukocyte esterase Auto test strip Ql (U) Negative Normal NEGATIVE [facility] Comment on above: Performed By: #### 5 8077-9 #### JIMENA Mark ([id number]) [facility] ([facility]) [address] [place] [address] 67471 Mucus Auto (Urine sed) [#/Area] 4+ /LPF Normal Reference range not established. [facility] Comment on above: Performed By: #### 5 8077-9 #### JIMENA Mark ([id number]) [facility] ([facility]) [address] [place] [address] 49043 Nitrite Auto test strip Ql (U) Negative Normal NEGATIVE [facility] Comment on above: Performed By: #### 5 8077-9 #### JIMENA Mark ([id number]) [facility] ([facility]) [address] [place] [address] 74850 pH (U) 9.0 [pH] Normal 5.0, 5.5, 6.0, 6.5, 7.0, 7.5, 8.0 [facility] Comment on above: Performed By: #### 5 8077-9 #### JIMENA Mark ([id number]) [facility] ([facility]) [address] [place] [address] 13543 Protein (U) [Mass/Vol] >=500 (3+) Normal NEGATIVE [facility] Comment on above: Performed By: #### 5 8077-9 #### JIMENA Mark ([id number]) [facility] ([facility]) [address] [place] [address] 60873 RBC (U) [#/Vol] Negative Normal NEGATIVE [facility] Comment on above: Performed By: #### 5 8077-9 #### JIMENA Mark ([id number]) [facility] ([facility]) [address] [place] [address] 01975 RBC Auto (Urine sed) [#/Area] 1-2 Normal NONE, 1-2, 3-5 [facility] Comment on above: Performed By: #### 5 8077-9 #### JIMENA Mark ([id number]) [facility] ([facility]) [address] [place] [address] 20406 Specific gravity (U) [Rel density] 1.025 Normal 1.005-1.035 [facility] Comment on above: Performed By: #### 5 8077-9 #### JIMENA Mark ([id number]) [facility] ([facility]) [address] [place] [address] Urobilinogen (U) [Mass/Vol] mg/dL Normal <2.0 [facility] Comment on above: Performed By: #### 5 8077-9 #### JIMENA Mark ([id number]) [facility] ([facility]) [address] [place] [address] WBC Auto (Urine sed) [#/Area] 1-5 Normal 1-5, NONE [facility] Comment on above: Performed By: #### 5 8077-9 #### JIMENA Mark ([id number]) [facility] ([facility]) [address] [place] [address] Yeast.budding Computer assisted (U) [#/Area] PRESENT Abnormal NONE [facility] Comment on above: Performed By: #### 5 8077-9 #### JIMENA Mark ([id number]) [facility] ([facility]) [address] [place] [address] XR CHEST 1 VIEWon 07-20-2023 XR CHEST 1 VIEW Interpreted By: Salina Hall, STUDY: XR CHEST 1 VIEW; 07/20/2023 4:05 pm INDICATION: Signs/Symptoms:cp. COMPARISON: None. ACCESSION NUMBER(S): [id number] ORDERING CLINICIAN: ABIODUN OCHOA FINDINGS: Heart is normal in size. There is no consolidation or pleural fluid. The mediastinum and bones are unremarkable. There are bilateral nipple shadows. COMPARISON OF FINDING: IMPRESSION: No acute cardiopulmonary disease. MACRO: none Signed by: Salina Stanton 07/20/2023 4:17 PM Dictation workstation: [id number] Normal [facility] XR Chest Single viewon 07-19 No acute cardiopulmo nary disease. MACRO: none Signed by: Salina Stanton 07/20/2023 4:17 PM Dictation workstation: [id number] [facility] Interpreted By: Salina Hall, STUDY: XR CHEST 1 VIEW; 07/20/2023 4:05 pm INDICATION: Signs/Symptoms:cp. COMPARISON: None. ACCESSION NUMBER(S): [id number] ORDERING CLINICIAN: ABIODUN OCHOA FINDINGS: Heart is normal in size. There is no consolidation or pleural fluid. The mediastinum and bones are unremarkable. There are bilateral nipple shadows. COMPARISON OF FINDING: [facility] Salina Stanton MD - 07/20/2023 Interpreted By: Salina Stanton, STUDY: XR CHEST 1 VIEW; 07/20/2023 4:05 pm INDICATION: Signs/Symptoms:cp. COMPARISON: None. ACCESSION NUMBER(S): [id number] ORDERING CLINICIAN: ABIODUN OCHOA FINDINGS: Heart is normal in size. There is no consolidation or pleural fluid. The mediastinum and bones are unremarkable. There are bilateral nipple shadows. COMPARISON OF FINDING: IMPRESSION: No acute cardiopulmonary disease. MACRO: none Signed by: Salina Stanton 07/20/2023 4:17 PM Dictation workstation: [id number] [facility] Work Phone: Radiology Study observation (narrative) [facility] Work Phone: XR Chest Single viewOrdered By: Salina Stanton on 07-20-2023 [facility] Work Phone: Cytology Cervical or vaginal smear or scraping studyon 03-19-2023 [facility] XR HYSTEROSALPINGOGRAMon XR HYSTEROSALPINGOGRAM [...] nondilated tubes. No spillage. IMPRESSION: Please see [employer] report for assessment of real-time findings. Button Pusher: ANTONIETA Transcribe Date/Time: Jan 20 2021 1:37P Dictated by : DAYANNA LEROY MD This examination was interpreted and the report reviewed and electronically signed by: DAYANNA LEROY MD on Jan 20 2021 1:45PM EST [id number] Normal [facility]Ron 03-22-2020 , QUAL Negative Normal NEGATIVE [facility] Comment on above: Performed By: #### P REGU #### [facility] [address] [address] Juany Mccarthy Covid-19 PCR ([facility]on 02-02 Covid-19 PCR DETECTED Abnormal NOT DETECTED [facility] Comment on above: Result Comment: This test is not yet approved or cleared by the [place] FDA. When there are no FDA-approved or cleared tests available, and other criteria are met, FDA can make tests available under an emergency access mechanism called an Emergency Use Authorization (EUA). The EUA for this test is supported by the [place] of Health and Human Service's (HHS's) declaration [...] used). Performed By: #### C VDTB #### [facility] [address] [id number] Juany Mccarthy EUA Statement SEE BELOW Normal [facility] Comment on above: Result Comment: This test is not yet approved or cleared by the [place] FDA. When there are no FDA-approved or cleared tests available, and other criteria are met, FDA can make tests available under an emergency access mechanism called an Emergency Use Authorization (EUA). The EUA for this test is supported by the [place] of Health and Human Service?s (HHS?s) declaration [...] consistent with SARS-CoV-2. Performed By: #### C [facility] #### [facility] [address] [place] [address] Juany Mccarthy Vital Signs Date Time Vital Sign Value Performing Clinician Facility 12-03-2023 08:43-0400 Body height 167.6 cm [employer] Work Phone: [facility] 12-03-2023 08:43-0400 Body mass index (BMI) [Ratio] 17.59 kg/m2 [employer] Work Phone: [facility] 12-03-2023 08:43-0400 Body weight 49.44 kg [employer] Work Phone: [facility] 12-03-2023 08:43-0400 Diastolic blood pressure 68 mm[Hg] [employer] Work Phone: [facility] 12-03-2023 08:43-0400 Systolic blood pressure 102 mm[Hg] [employer] Work Phone: [facility] 10-15-2023 10:05-0400 Blood Pressure Location [employer] [facility] 10-15-2023 10:05-0400 Diastolic blood pressure 74 mm[Hg] [employer] [facility] 10-15-2023 10:05-0400 Heart rate 66 /min [employer] [facility] 10-15-2023 10:05-0400 Mean blood pressure 87 mm[Hg] [employer] [facility] 10-15-2023 10:05-0400 Respiratory rate 19 /min [employer] [facility] 10-15-2023 10:05-0400 SaO2% (BldA) [Mass fraction] 97 % Mohamad Mouchli [facility] 10-15-2023 10:05-0400 Systolic blood pressure 112 mm[Hg] Mohamad Mouchli [facility] 10-15-2023 09:55-0400 Blood Pressure Location Mohamad Mouchli [facility] 10-15-2023 09:55-0400 Diastolic blood pressure 57 mm[Hg] Mohamad Mouchli [facility] 10-15-2023 09:55-0400 Heart rate 57 /min Mohamad Mouchli [facility] 10-15-2023 09:55-0400 Mean blood pressure 71 mm[Hg] Mohamad Mouchli [facility] 10-15-2023 09:55-0400 Respiratory rate 19 /min Mohamad Mouchli [facility] 10-15-2023 09:55-0400 SaO2% (BldA) [Mass fraction] 100 % Mohamad Mouchli [facility] 10-15-2023 09:55-0400 Systolic blood pressure 100 mm[Hg] Mohamad Mouchli [facility] 10-15-2023 09:50-0400 Blood Pressure Location Mohamad Mouchli [facility] 10-15-2023 09:50-0400 Diastolic blood pressure 73 mm[Hg] Mohamad Mouchli [facility] 10-15-2023 09:50-0400 Heart rate 90 /min Mohamad Mouchli [facility] 10-15-2023 09:50-0400 Mean blood pressure 89 mm[Hg] Mohamad Mouchli [facility] 10-15-2023 09:50-0400 Respiratory rate 13 /min Mohamad Mouchli [facility] 10-15-2023 09:50-0400 SaO2% (BldA) [Mass fraction] 100 % Mohamad Mouchli [facility] 10-15-2023 09:50-0400 Systolic blood pressure 122 mm[Hg] Mohamad Mouchli [facility] 10-15-2023 09:41-0400 Body temperature 98.06 [degF] Mohamad Mouchli [facility] 10-15-2023 09:30-0400 Respiratory rate 10 /min Mohamad Mouchli [facility] 10-15-2023 09:25-0400 Respiratory rate 10 /min Mohamad Mouchli [facility] 10-15-2023 09:24-0400 Respiratory rate 10 /min Mohamad Mouchli [facility] 10-15-2023 07:13-0400 Body temperature 98.42 [degF] Mohamad Mouchli [facility] 09-13-2023 14:52-0400 Blood Pressure Location Mohamad Mouchli [facility] 09-13-2023 14:52-0400 Diastolic blood pressure 82 mm[Hg] Mohamad Mouchli [facility] 09-13-2023 14:52-0400 Heart rate 78 /min Mohamad Mouchli [facility] 09-13-2023 14:52-0400 Respiratory rate 16 /min Alex Garciahilario [facility] 09-13-2023 14:52-0400 Systolic blood pressure 110 mm[Hg] Alex Hortonhelena [facility] 07-20-2023 18:58-0400 Body temperature 98.49 [degF] Gwen Danielson MD Work Phone: [facility] 07-20-2023 18:58-0400 Diastolic blood pressure 83 mm[Hg] Gwen Danielson MD Work Phone: [facility] 07-20-2023 18:58-0400 Heart rate 52 /min Gwen Danielson MD Work Phone: [facility] 07-20-2023 18:58-0400 Respiratory rate 18 /min Gwen Danielson MD Work Phone: [facility] 07-20-2023 18:58-0400 SaO2% (BldA) [Mass fraction] 98 % Gwen Danielson MD Work Phone: [facility] 07-20-2023 18:58-0400 Systolic blood pressure 135 mm[Hg] Gwen Danielson MD Work Phone: [facility] 07-20-2023 13:40-0400 Body height 167.6 cm Gwen Danielson MD Work Phone: [facility] 07-20-2023 13:40-0400 Body mass index (BMI) [Ratio] 19.05 kg/m2 Gwen Danielson MD Work Phone: [facility] 07-20-2023 13:40-0400 Body weight 53.52 kg Gwen Danielson MD Work Phone: [facility] Encounters Encounter Date Encounter Type Care Provider Facility Start: 04-14-2024 End: 04-14-2024 ambulatory CAROLYNE COLLAZO Not Available Start: 04-14-2024 End: 04-14-2024 Clinisync Result Encounter Generic External Data Provider [facility] Unsolicited Start: 04-14-2024 End: 04-14-2024 Clinisync Result Encounter Generic External Data Provider [facility] External [facility] Unsolicited Start: 04-08-2024 End: 04-08-2024 ambulatory MD JADE LEDBETTER [place] [place]: 04-08-2024 End: 04-08-2024 Patient encounter procedure JADE Aleman MONTSERRAT [facility] Start: 04-08-2024 End: 04-08-2024 Clinisync Result Encounter [...] infertility Start: 02-18-2024 End: 02-18-2024 ambulatory Carolyne Collazo [place] [place] Start: 02-18-2024 End: 02-18-2024 Patient encounter procedure Carolyne Collazo [facility] Start: 02-18-2024 End: 02-18-2024 Clinisync Result Encounter Carolyne Collazo MD Work Phone: [facility] Unsolicited Start: 02-18-2024 End: 02-18-2024 Clinisync Result Encounter Carolyne Collazo MD Work Phone: [facility] Unsolicited Start: 02-15-2024 End: 02-15-2024 Office outpatient visit 15 minutes Carol Magaña PA Work Phone: [facility] Comment on [...] 10-15-2023 End: 10-15-2023 ambulatory Alex Knutson [place] [place] Start: 10-15-2023 End: 10-15-2023 Patient encounter procedure Alex Knutson [facility] Start: 09-13-2023 End: 09-13-2023 ambulatory Alex Knutson Facility:[facility] Start: 09-13-2023 End: 09-13-2023 Patient encounter procedure Alex Knutson [facility] Start: 2023 ambulatory Alex Knutson Facilit y:[facility] Start: 08-23-2023 End: 08-23-2023 ambulatory CAROLYNE COLLAZO Not Available Start: 08-14-2023 Telephone encounter Karina Hand MD Work Phone: Endocrinology Comment on above: Results Start: 07-26-2023 End: 07-26-2023 ambulatory CAROLYNE COLLAZO Not Available Start: 07-20-2023 End: 07-20-2023 Emergency department patient visit Gwen Danielson MD Work Phone: [facility] Comment on above: Nausea and vomiting, unspecified vomiting type (Primary Dx); Gastritis, presence of bleeding unspecified, unspecified chronicity, unspecified gastritis type Start: 06-13-2023 End: 06-13-2023 [facility] Karina Vincent MD Work Phone: Endocrinology Comment on above: Prolactinoma (HCC) ( Primary Dx); 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HCC); Elevated prolactin level Start: 05-24-2023 End: 05-24-2023 ambulatory CAROLYNE COLLAZO Not Available Start: 03-19-2023 Patient encounter procedure Uriel Meade DO Work Phone: [facility] Start: 03-22-2020 End: 03-22-2020 Patient encounter procedure YASMIN MARTINEZ Facility:[facility] Start: 03-03-2020 Encounter for preprocedural laboratory examination YASMIN MARTINEZ [facility] Start: 02-25-2020 Encounter for other preprocedural examination YASMIN MARTINEZ [facility] Start: 02-23-2020 End: 02-23-2020 Patient encounter procedure YASMIN MARTINEZ Facility:[facility] Start: 02-20-2020 End: 02-20-2020 Patient encounter procedure YASMIN MARTINEZ Facility:[facility] Start: 02-16-2020 End: 02-17-2020 Patient encounter procedure YASMIN MARTINEZ Facility:[facility] Encounter for other preprocedural examination YASMIN MARTINEZ [facility] Encounter for preprocedural laboratory examination YASMIN MARTINEZ [facility] Procedures Date Procedure Procedure Detail Performing Clinician Start: 04-14-2024 US PELVIS TRANSVAGINAL Generic External Data Provider Start: 04-08-2024 US PELVIS TRANSVAGINAL Generic External Data Provider Start: 03-14-2024 MLR HEMOGLOBIN A1C Generic External Data Provider Start: 02-18-2024 [facility] [place] W/ AUTO DIFF Carolyne Collazo MD Work Phone: Start: 02-13-2024 ALL THYROID [...] Lactate [Moles/volume] in Serum or Plasma GWEN DANIELSON Start: 07-20-2023 XR CHEST 1 VIEW GWEN DANIELSON Start: 07-20-2023 DRUG SCREEN,URINE GWEN DANIELSON Start: 07-20-2023 EXTRA URINE DORAN TUBE GWEN DANIELSON Start: 07-20-2023 URINALYSIS MICROSCOPIC WITH REFLEX CULTURE GWEN DANIELSON Start: 07-20-2023 URINALYSIS WITH REFLEX CULTURE AND MICROSCOPIC [facility] Start: 07-20-2023 Ct thorax w/contrast material Abiodun sarabia PA-C Work Phone: Start: 07-20-2023 CBC W Auto Differential panel - [facility] Start: 07-20-2023 Comprehensive metabolic 2000 panel - Serum or Plasma [facility] Start: 07-20-2023 HUMAN CHORIONIC GONADOTROPIN, SERUM QUANTITATIVE [facility] Start: 07-20-2023 Lactate [Moles/volume] in Serum or Plasma [facility] Start: 07-20-2023 Lipase [Enzymatic activity/volume] in Serum or Plasma [facility] Start: 07-20-2023 TROPONIN I, HIGH SENSITIVITY [facility] Start: 07-20-2023 ECG 12-LEAD [facility] Start: 07-20-2023 INSERT PERIPHERAL IV [facility] Start: 07-20-2023 Assay of lactate Abiodun Ochoa [...] auto thin layer prep mnl screen Uriel Halina DO Work Phone: Tonsillectomy and adenoidectomy Carolyne Collazo Plan of Treatment Date Care Activity Detail Author Start: 2044 Zoster Vaccines (1 of 2) Zoste r Vaccines (1 of 2) [facility] Start: 09-24-2024 End: 09-24-2024 Patient encounter procedure 09/24/2024 3:00 PM EDT [facility] Visit [facility] [address] [facility] [address] [place] [phone] Uriel Meade, DO [address] [place] [address] [facility] Start: 03-26-2024 End: 03-26-2024 Patient encounter procedure 03/26/2024 1:00 PM EST Office Visit [facility] [address] [facility] [place] [place] [phone] Uriel Meade, DO [address] [place] [address] [facility] Start: 03-24-2024 End: 03-24-2024 Patient encounter procedure 03/24/2024 4:00 PM EST Office Visit [facility] [address] [facility] [place] [place] [phone] Uriel Meade, DO [address] [place] [address] [facility] Start: 02-15-2024 End: 02-15-2024 Telemedicine consultation with patient 02/15/2024 10:00 AM EST Telemedicine [facility] [address] [place] [phone] Carol Magaña PA [address] [place] [address] [facility] Start: 11-22-2023 End: 11-22-2023 Patient encounter procedure 11/22/2023 4:00 PM EDT Office Visit [facility] [address] [place] [phone] Carolyne Collazo MD [address] [place] [address] [facility] Start: 11-04-2023 Influenza vaccination [facility] Start: 07-11-2023 End: 10-10-2023 Corticotropin [Mass/volume] in Plasma ACTH BLD Lab Routine 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[facility]) Expected: 07/11/2023, Expires: 10/10/2023 [facility] Comment on above: Expected: 07/11/2023 , Expires: 10/10/2023 Start: 07-11-2023 End: 10-10-2023 Cortisol [Mass/volume] in Serum or Plasma CORTISOL, SERUM Lab Routine 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[facility]) Expected: 07/11/2023, Expires: 10/10/2023 [facility] Comment on above: Expected: 07/11/2023 , Expires: 10/10/2023 Start: 07-11-2023 End: 10-10-2023 Estradiol (E2) [Mass/volume] in Serum or Plasma ESTRADIOL-17B BLD Lab Routine 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[facility]) Expected: 07/11/2023, Expires: 10/10/2023 [facility] Comment on above: Expected: 07/11/2023 , Expires: 10/10/2023 Start: 07-11-2023 End: 10-10-2023 Follitropin [Units/volume] in Serum or Plasma FOLLICLE STIMULATING HORMONE Lab Routine 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[facility]) Expected: 07/11/2023, Expires: 10/10/2023 [facility] Comment on above: Expected: 07/11/2023 , Expires: 10/10/2023 Start: 07-11-2023 End: 10-10-2023 INSULIN LIK GR FAC I INSULIN LIK GR FAC I Lab Routine 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[facility]) Expected: 07/11/2023, Expires: 10/10/2023 [facility] Comment on above: Expected: 07/11/2023 , Expires: 10/10/2023 Start: 07-11-2023 End: 10-10-2023 Lutropin [Units/volume] in Serum or Plasma LUTEINIZING HORMONE Lab Routine 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[facility]) Expected: 07/11/2023, Expires: 10/10/2023 [facility] Comment on above: Expected: 07/11/2023 , Expires: 10/10/2023 Start: 07-11-2023 End: 08-09-2024 MR Pituitary and Sella turcica WO and W contrast IV MRI PITUITARY WO/W IVCON Radiology Routine 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[facility]) Expected: 07/11/2023, Expires: 08/09/2024 [facility] Work Phone: Comment on above: Expected: 07/11/2023 , Expires: 08/09/2024 Start: 07-11-2023 End: 10-10-2023 Prolactin [Mass/volume] in Serum or Plasma PROLACTIN Lab Routine 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[facility]) Expected: 07/11/2023, Expires: 10/10/2023 [facility] Comment on above: Expected: 07/11/2023 , Expires: 10/10/2023 Start: 07-11-2023 End: 10-10-2023 Somatostatin [Mass/volume] in Plasma GROWTH HORMONE Lab Routine 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[facility]) Expected: 07/11/2023, Expires: 10/10/2023 [facility] Comment on above: Expected: 07/11/2023 , Expires: 10/10/2023 Start: 07-11-2023 End: 10-10-2023 Thyrotropin [Units/volume] in Serum or Plasma THYROID STIMULATING HORMONE Lab Routine 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[facility]) Expected: 07/11/2023, Expires: 10/10/2023 [facility] Comment on above: Expected: 07/11/2023 , Expires: 10/10/2023 Start: 07-11-2023 End: 10-10-2023 Thyroxine (T4) free [Mass/volume] in Serum or Plasma T4 FREE/FREE THYROXINE Lab Routine 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[facility]) Expected: 07/11/2023, Expires: 10/10/2023 [facility] Comment on above: Expected: 07/11/2023 , Expires: 10/10/2023 Start: 03-05-2023 Behavioral Health Screening Behavioral Health Screening [facility] Start: 11-03-2022 Covid-19 Vaccine ( season) Covid-19 Vaccine ( season) [facility] Start: 05-29-2018 DTaP/Tdap/Td Vaccine s (3 - Td or Tdap) DTaP/Tdap/Td Vaccines (3 - Td or Tdap) [facility] Start: 05-29-2018 Urine microalbumin profile DTaP,Tdap,Td Vaccine (3 - Td or Tdap) [facility] Start: 08-30-2015 Screening for malign ant neoplasm of cervix [facility] Start: 07-13-2014 Hepatitis B Vaccine (3 of 3 - 19+ 3-dose series) Hepatitis B Vaccine (3 of 3 - 19+ 3-dose series) [facility] Start: 07-13-2014 Hepatitis B Vaccines (3 of 3 - 19+ 3-dose series) Hepatitis B Vaccines (3 of 3 - 19+ 3-dose series) [facility] Start: 05-12-2014 Hepatitis A Vaccines (2 of 2 - 2-dose series) Hepatitis A Vaccines (2 of 2 - 2-dose series) [facility] Start: 2012 Hepatitis C screening Hepatitis C Sc reening [facility] Start: 2012 HIV screening HIV Screening [facility] Start: 05-18-2010 Varicella vaccination Varicell a Vaccines (2 of 2 - 13+ 2-dose series) [facility] Start: 2000 Pneumococcal Vaccine : Pediatrics (0 to 5 Years) and At-Risk Patients (6 to 64 Years) (1 of 2 - PCV) Pneumococcal Vaccine: Pediatrics (0 to 5 Years) and At-Risk Patients (6 to 64 Years) (1 of 2 - PCV) [facility] Start: 07-06-1999 IPV Vaccines (2 of 3 - 4-dose series) IPV Vaccines (2 of 3 - 4-dose series) [facility] Start: 1994 HIV screening HIV Screening [facility] Start: 1994 Lipid panel Lipid Panel [facility] Start: 1994 Yearly Adult Physical Yearly Adult P hysical [facility] ECG 12 lead ECG 12 lead ECG STAT 07/20/2023 2:57 PM EDT [facility] Work Phone: End: 07-20-2023 Extra Urine Doran Tube [facility] Work Phone: Comment on above: Once for 1 Occurrenc es starting 07/20/2023 until 07/20/2023 End: 07-20-2023 Urinalysis complete W Reflex Culture panel - Urine [facility] Work Phone: Comment on above: Once (Lab) for 1 Occ urrences starting 07/20/2023 until 07/20/2023 Immunizations Immunization Date Immunization Notes Care Provider Fa cility 12-06-2015 influenza, injectabl e, quadrivalent, preservative free Uriel Halina DO Work Phone: [facility] 12-06-2015 influenza virus vacc ine, unspecified formulation Karina Vincent MD Work Phone: [facility] 05-18-2014 hepatitis B vaccine, adult dosage Mohamad Mouchli [facility] 03-30-2014 hepatitis B vaccine, adult dosage Mohamad Mouchli [facility] 11-12-2013 hepatitis A vaccine, pediatric/adolescent dosage, 2 dose schedule Uriel Halina DO Work Phone: [facility] 11-12-2013 hepatitis A vaccine, unspecified formulation Mohamad Mouchli [facility] 11-12-2013 hepatitis B vaccine, pediatric or pediatric/adolescent dosage Mohamad Mouchli [facility] 11-12-2013 hepatitis A and hepatitis B vaccine Gwen Danielson MD Work Phone: [facility] Work Phone: 12-31-2012 influenza virus vacc ine, whole virus Uriel Halina DO Work Phone: [facility] 12-31-2012 influenza, whole Mohamad Rosa chli [facility] 12-14-2012 measles, mumps and rubella virus vaccine Carolyne Collazo [facility] Comment on above: Reason for Medicatio n: Other (see comment) 04-20-2010 hepatitis A vaccine, pediatric/adolescent dosage, 2 dose schedule Uriel Halina DO Work Phone: [facility] 04-20-2010 hepatitis A vaccine, unspecified formulation Mohamad Mouchli [facility] 04-20-2010 varicella virus vaccine Jeovanny Danielson MD Work Phone: [facility] 05-29-2008 meningococcal ACWY vaccine, unspecified formulation Mohamad Mouchli [facility] 05-29-2008 meningococcal polysaccharide (groups A, C, Y and W-135) diphtheria toxoid conjugate vaccine (MCV4P) Uriel Halina Wi3 Work Phone: [facility] 05-29-2008 tetanus toxoid, redu bridget diphtheria toxoid, and acellular pertussis vaccine, adsorbed Mohamad Mouchli [facility] 12-13-2006 HPV, unspecified formulation Mohamad Mouchli [facility] 12-13-2006 human papilloma viru s vaccine, quadrivalent Uriel Halina DO Work Phone: [facility] 08-13-2006 HPV, unspecified formulation Mohamad Mouchli [facility] 08-13-2006 human papilloma viru s vaccine, quadrivalent Uriel Halina DO Work Phone: [facility] 06-13-2006 HPV, unspecified formulation Mohamad Mouchli [facility] 06-13-2006 human papilloma viru s vaccine, quadrivalent Uriel Halina DO Work Phone: [facility] 06-08-1999 diphtheria, tetanus toxoids and acellular pertussis vaccine, unspecified formulation Uriel Halina DO Work Phone: [facility] 06-08-1999 DTaP, unspecified formulation Alex Hortonhelena [facility] 06-08-1999 measles, mumps and rubella virus vaccine Mohamad Mouchli [facility] 06-08-1999 poliovirus vaccine, inactivated Uriel Halina DO Work Phone: [facility] 06-08-1999 poliovirus vaccine, unspecified formulation Gwen Danielson MD Work Phone: [facility] Payers Date Payer Category Payer Unknown [id number] 2019 [facility] er [id number] 2019 Unknown [id number] 1994 Unknown [id number] 9.2.593 1994 Unknown [id number] 9.2593 1994 Unknown [id number] [id number] 9.2.593 1994 Unknown [id number] [id number] 9.2.593 1994 Unknown [id number] 9.2.1243 1994 Unknown [id number] [id number] 9.2.727 1994 Unknown [id number] [id number] 9.2.727 1994 Unknown [id number] [id number] 9.2.727 1994 Unknown [id number] [id number] 9.2.727 1994 Unknown [id number] [id number] 9.2.727 1994 Unknown [id number] [id number] 9.2.1259 1994 Unknown [id number] [id number] 9.2.1259 1994 Unknown [id number] [id number] 9.2.1259 1994 Unknown [id number] [id number] 9.2.1259 1994 Unknown [id number] 9.2.1259 1994 Unknown [id number] 9.2.1259 1959 Unknown [id number] 1959 Unknown [id number] 1959 Unknown [id number] Social History Date Type Detail Facility Tobacco smoking stat [facility] Tobacco smoking consumption unknown [facility] Start: 06-13-2023 End: 02-15-2024 History of Social function [facility] Start: 06-13-2023 End: 02-15-2024 Area Deprivation Index [facility] National Score (1-10 0), lower number is lower risk 85 [facility] Start: 1994 Sex Assigned At Not on file [facility] Start: 07-10-2023 End: 07-20-2023 Exposure to SARS-CoV-2 (event) Not sure [facility] Work Phone: Start: 09-06-2022 End: 09-13-2023 Tobacco smoking status Never smoked tobacco (finding) [facility] Start: 08-23-2023 End: 12-03-2023 Alcoholic beverage intake Lifetime non-drinker (finding) [facility] Start: 09-06-2022 Alcohol Comment caffeine: none [facility] Do you belong to any clubs or organizations such as jehovah's witness groups, unions, fraternal or athletic groups, or [...] [OSQ] Very much [facility] (I/We) worried wheth er (my/our) food would run out before (I/we) got money to buy more. Never true [facility] Functional Status Date Assessment Result Facility 10-15-2023 Functional Status N/A [facility] 09-13-2023 Functional Status N/A [facility] Clinical Notes 01-20-2021 to 03-12-2024 Akua Streeter LPN - 03/12/2024 8:00 AM PATRICIA Bustillo 02/18/2024 3:33 PM PATRICIA Bustillo 02/15/2024 10:00 AM PATRICIA Bustillo 02/15/2024 10:00 AM EST Note Date & Type Note Facility 03-12-2024 History of Present illness Narrative Reason for Appointment: Patient ID: Indu St is a 28 y.o. female who presents for No chief complaint on file. Patient presents today via telephone call for a telehealth appointment. Patients Phone #: [phone] (mobile) Current Medications: has a current medication list which includes the following prescription(s): alprazolam, breyna, cholecalciferol, coenzyme q-10, fish oil concentrate, and vitamins. Medical History: Active Ambulatory Problems Diagnosis Date Noted Bipolar 1 disorder ([facility]) 11/13/2022 Anxiety 12/21/2022 Asthma ([facility]) 12/21/2022 Attention deficit hyperactivity disorder (ADHD), combined type ([facility]) 12/21/2022 Proteinuria 08/03/2010 PTSD (post-traumatic stress disorder) ([facility]) 12/21/2022 Bipolar affective disorder, current episode hypomanic ([facility]) 12/21/2022 Well woman exam with routine gynecological exam 03/19/2023 Myalgia 02/18/2024 Resolved Ambulatory Problems Diagnosis Date Noted No Resolved Ambulatory Problems Past Medical History: Diagnosis Date Abnormal uterine bleeding (AUB) ADHD (attention deficit hyperactivity disorder) ([facility]) Amenorrhea Bilateral sacroiliitis ([facility]) Cervical cancer ([facility]) Chronic fatigue Chronic rhinitis Chronic vaginitis Depression [...] 03/2020 lap, D and C - at [facility] DILATION AND CURETTAGE OF UTERUS 03/07/2013 [...] Uriel Meade DO documented in this encounter [facility] 02-18-2024 History of Present illness Narrative Associated Problem(s): Myalgia Dr Colalzo put in lab orders and patient [place] [facility] Will call with results Images from the [...] History of Present Illness Patient here via [facility] Encounter: Verbal consent was obtained from patient for Telehealth Services. Patient Location ([place]) Patient is concerned about ongoing joint pain [...] Addressed This Visit Myalgia - Primary Dr Collazo put in lab orders and patient will go [place] [facility] Will call with results Health Maintenance Due Topic Date Due Influenza Vaccine (1) 11/04/2023 documented in this encounter [facility] 02-18-2024 Evaluation + Plan note Diagnostic Tests Pending.JESUS Individual Abs 02/18/24Rheumatoid Factor Quantitative 02/18/24 [facility] 01-16-2024 History of Present illness Narrative Reason for Appointment: Patient ID: Indu St is a 28 y.o. female who presents for Telehealth and Infertility Patient presents today via telephone call for a telehealth appointment. Patients Phone #: [phone] (mobile) Current Medications: has a current medication list which includes the following prescription(s): alprazolam and breyna. Medical History: Active Ambulatory Problems Diagnosis Date Noted Bipolar 1 disorder ([facility]) 11/13/2022 Anxiety 12/21/2022 Asthma ([facility]) 12/21/2022 Attention deficit hyperactivity disorder (ADHD), combined type ([facility]) 12/21/2022 Proteinuria 08/03/2010 PTSD (post-traumatic stress disorder) ([facility]) 12/21/2022 Bipolar affective disorder, current episode hypomanic ([facility]) 12/21/2022 Well woman exam with routine gynecological exam 03/19/2023 Resolved Ambulatory Problems Diagnosis Date Noted No Resolved Ambulatory Problems Past Medical History: Diagnosis Date Abnormal uterine bleeding (AUB) ADHD (attention deficit hyperactivity disorder) ([facility]) Amenorrhea Bilateral sacroiliitis ([facility]) Cervical cancer ([facility]) Chronic fatigue Chronic rhinitis Chronic vaginitis Depression [...] 03/2020 lap, D and C - at [facility] DILATION AND CURETTAGE OF UTERUS 03/07/2013 [...] pt has appt with IVF clinic in [place]. Pt is having weird symptoms- anal itching, [...] Uriel Meade DO documented in this encounter [facility] 12-03-2023 History of Present [...] Problems Diagnosis Date Noted Bipolar 1 disorder ([facility]) 11/13/2022 Anxiety 12/21/2022 Asthma ([facility]) 12/21/2022 Attention deficit hyperactivity disorder (ADHD), combined type ([facility]) 12/21/2022 Proteinuria 08/03/2010 PTSD (post-traumatic stress disorder) ([facility]) 12/21/2022 Bipolar affective disorder, current episode hypomanic (CMS/HCC) 12/21/2022 Well woman exam with routine gynecological [...] laterality URI (upper respiratory infection) 03[place]01[place] [facility] [place] Social History Tobacco Use Smoking [...] 03/2020 lap, D and C - at [facility] DILATION AND CURETTAGE OF UTERUS 03/07/2013 [...] nursing note reviewed. Exam conducted with a decision science analyst present. Vitals: Estimated body mass index is [...] have HSG done again locally at [facility]. Patient is to call office when she starts cycle and nurse will send HSG and HCG to [facility]. Will hold off on fertility meds for the next cycle until HSG results are back. Patient to return to clinic for annual and PRN as needed. Documented by Akua Streeter LPN on behalf of: Uriel Meade DO documented in this encounter [facility] 10-15-2023 Evaluation + Plan note Extrac latisha from: Title:ANES Post General Author:Gus Moreno DO. Date:10/15/23 Plan Transfer/Discharge: Patient exhibiting no signs of N/V. Hydration status is adequate. Extracted from: Title:Josh Barbour PRE Author:Kenan Moreno DO. Date:10/15/23 Plan [place] [employer]esthesi[employer] (ASA) physical status classification: Class II. Anesthetic Preoperative Plan: Anesthesia General. [facility] 08-12-2024 Hospital Discharge instructions Patient Education 10/15/2023 [...] 10/15/2023 09:50:26 Endoscopy, Care After Procedure [facility] [place] Care After Procedure Please read [...] Document Re-Released: 08/13/2006 ExitCare Patient Information 2009 Struq. Follow Up Care 09/13/2023 15:40:21 With:Alex Knutson Address: [address] [place] [phone] Business (1) When:1 to 2 weeks Comments:Call for any problems. [facility] 08-12-2024 NoteProgress Note-Physician Patient: INDU ST Age: [...] Daily, # 527 gm, Refills(s) 5, Pharmacy: [id number], 167, cm, 09/13/23 14:57:00 EDT, Height/Length Dosing, 48.9, kg, 09/13/23 14:57:00 EDT, Weight Dosing Pantoprazole [address] Tab: 40 mg = 1 tab(s), Oral, Daily, # 30 tab(s), Refills(s) 4, Pharmacy: [facility] #[id number], 167, cm, 09/13/23 14:57:00 EDT, Height/Length Dosing, [...] CT of the abdomen / SNOMED CT 7343495980 / Confirmed Abnormal uterine bleeding. / SNOMED CT 2848183278 / Confirmed Amenorrhea / SNOMED CT 99898556 / Confirmed Anemia / SNOMED CT 341360648 / Confirmed Anxiety / SNOMED CT 83893456 / Confirmed Asthma / SNOMED CT 457993512 / Confirmed Attention deficit hyperactivity disorder / SNOMED CT 4120863893 / Confirmed Benign neoplasm of pituitary gland / SNOMED CT 662032565 / Confirmed Bilateral arthritis of sacroiliac joint / SNOMED CT 0679768504 / Confirmed Bipolar disorder / SNOMED CT 37732328 / Confirmed Chronic rhinitis / SNOMED CT 251652007 / Confirmed Chronic vaginitis / SNOMED CT 81331722 / Confirmed Depressive disorder / SNOMED CT 90727905 / Confirmed Disorder of pituitary gland / SNOMED CT 3417472643 / Confirmed Endometriosis (clinical) / SNOMED CT 761306048 / Confirmed Esophagitis / SNOMED CT 68274255 / Confirmed Fatigue / SNOMED CT 572344834 / Confirmed Gastritis / SNOMED CT 6765921 / Confirmed Heartburn / SNOMED CT 76459940 / Confirmed History of laparoscopy / SNOMED CT 3066796042 / Confirmed Malignant tumor of cervix / SNOMED CT 172942597 / Confirmed Miscarriage / SNOMED CT 81853740 / Confirmed Nausea and vomiting / SNOMED CT 98907309 / Confirmed Pain in pelvis / SNOMED CT 604249222 / Confirmed Prolactin level above reference range / SNOMED CT 8670335083 / Confirmed Prolactinoma / SNOMED CT 514522869 / Confirmed Sciatica / SNOMED CT 94189535 / Confirmed Seasonal allergic rhinitis / SNOMED CT 366345130 / Confirmed Stress-related physiological response affecting medical condition / SNOMED CT 38213160 / Confirmed 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 Weight loss / SNOMED CT 714345006 / Confirmed Physical Examination Vital Signs 10/15/2023 [...] 36.7 DegC Heart Rate (more content not included)...[facility]:Result Comment: Electronically Signed By: Lenny Moreno DO\.br\Date and Time Signed: 10/15/23 10:06 [id number] NoteColonoscopy Procedure Report Patient: INDU ST Age: [...] Daily, # 527 gm, Refills(s) 5, Pharmacy: [facility] #[id number], 167, cm, 09/13/23 14:57:00 EDT, Height/Length Dosing, 48.9, kg, 09/13/23 14:57:00 EDT, Weight Dosing Pantoprazole [address] Tab: 40 mg = 1 tab(s), Oral, Daily, # 30 tab(s), Refills(s) 4, Pharmacy: [facility] #[id number], 167, cm, 09/13/23 14:57:00 EDT, Height/Length Dosing, [...] 24 hours. Education and Follow-up: Counseled: Patient, Family.[facility] Comment on above:Other Comment: Missing Attachment - attachment storage system not supported [id number] Can be viewed in source system Missing Attachment - attachment storage system not supported [id number] Can be viewed in source systemMissing Attachment - attachment storage system not supported [id number] Can be viewed in source systemMissing Attachment - attachment storage system not supported [id number] Can be viewed in source systemMissing Attachment - attachment storage system not supported [id number] Can be viewed in source systemMissing Attachment - attachment storage system not supported [id number] Can be viewed in source [facility]Miss[facility] Attachment - attachment storage system not supported [id number] Can be viewed in source [id number] Note Patient Education - Text Colonoscopy Care After Surgery Please read the instructions outlined below and refer to this sheet in the next few weeks. These discharge instructions provide you with general information [facility] Your doctor may also give you specific [...] on [facility] Your doctor may also give you specific [...] Document Re-Released: 08/13/2006 ExitCare? Patient Information ?2009 Struq.[facility] 10-15-2023 NoteProgress Note-Physician Patient: INDU ST Age: 28 years Sex: Female : 1995 Associated Diagnoses: None Author: Lenny Moreno DO Preoperative Information Anesthesia history: Patient history: None. Family history+: None. Anesthesia results Informed consent: Signed by patient. Including risks, benefits, and alternatives related to the: Anesthetic plan, Postoperative pain management plan. Re-evaluation prior to induction: Josh DO, Lenny C.. Health Status Allergies: Allergic Reactions (Selected) No [...] Daily, # 527 gm, Refills(s) 5, Pharmacy: [facility] #[id number], 167, cm, 09/13/23 14:57:00 EDT, Height/Length Dosing, 48.9, kg, 09/13/23 14:57:00 EDT, Weight Dosing Pantoprazole [address] Tab: 40 mg = 1 tab(s), Oral, Daily, # 30 tab(s), Refills(s) 4, Pharmacy: [facility] #[id number], 167, cm, 09/13/23 14:57:00 EDT, Height/Length Dosing, [...] CT of the abdomen / SNOMED CT 0854780442 / Confirmed Abnormal uterine bleeding. / SNOMED CT 0510821538 / Confirmed Amenorrhea / SNOMED CT 21607853 / Confirmed Anemia / SNOMED CT 274962284 / Confirmed Anxiety / SNOMED CT 69582011 / Confirmed Asthma / SNOMED CT 459998155 / Confirmed Attention deficit hyperactivity disorder / SNOMED CT 6820484841 / Confirmed Benign neoplasm of pituitary gland / SNOMED CT 518082913 / Confirmed Bilateral arthritis of sacroiliac joint / SNOMED CT 4148776075 / Confirmed Bipolar disorder / SNOMED CT 75269838 / Confirmed Chronic rhinitis / SNOMED CT 503678423 / Confirmed Chronic vaginitis / SNOMED CT 52795389 / Confirmed Depressive disorder / SNOMED CT 63198839 / Confirmed Disorder of pituitary gland / SNOMED CT 7325053406 / Confirmed Endometriosis (clinical) / SNOMED CT 357345172 / Confirmed Esophagitis / SNOMED CT 74969933 / Confirmed Fatigue / SNOMED CT 791419369 / Confirmed Gastritis / SNOMED CT 4071861 / Confirmed Heartburn / SNOMED CT 39333229 / Confirmed History of laparoscopy / SNOMED CT 2534631923 / Confirmed Malignant tumor of cervix / SNOMED CT 369645967 / Confirmed Miscarriage / SNOMED CT 75985004 / Confirmed Nausea and vomiting / SNOMED CT 87224120 / Confirmed Pain in pelvis / SNOMED CT 963976819 / Confirmed Prolactin level above reference range / SNOMED CT 6039980485 / Confirmed Prolactinoma / SNOMED CT 993092505 / Confirmed Sciatica / SNOMED CT 58898893 / Confirmed Seasonal allergic rhinitis / SNOMED CT 174372390 / Confirmed Stress-related physiological response affecting medical condition / SNOMED CT 50213675 / Confirmed 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 Bipolar disorder Chronic rhinitis Chronic vaginitis Depressive disorder Disorder of pituitary gland Endometriosis (cl (more content not included)...[facility] Comment on above:Result Comment: Electronically Signed By: Lenny Moreno DO\.br\Date and Time Signed: 10/15/23 07:34 [id number] Telephone encounter Note* Telephone Encounter - Twyla Caraballo MA - 08/14/2023 11:08 AM EDT Received MRI results completed 08/02/2023, scanned to chart Twyla Caraballo Reeling Machine Operator II Endocrinology & Metabolism [facility] F20 & X20 [facility]06-11-2024 Miscellaneous Notes* Telephone Encounter - Twyla Caraballo MA - 08/14/2023 11:08 AM EDT Received MRI results completed 08/02/2023, scanned to chart Twyla Caraballo Reeling Machine Operator II Endocrinology & Metabolism [facility] F20 & X20 documented in this encounter[facility] Reason for referral (narrative)* Consultation (Routine) - Authorized Specialty Diagnoses / Procedures Referred By Niki t Referred To Contact Gastroenterology Abiodun Ochoa, PA-C [address] [place] [address] Do [id number] Gastro1 [address] [place] [address] Referral ID Status Reason Start Date Expiration Date Visits Requested Visits Authorized [id number] Authorized Specialty Services Required 07/20/2023 07/19/2024 1 1 [facility] Work Phone: [phone]) 929-505104-10-2024 NoteHNO ID: [id number] Author: KARINA VINCENT MD Service: ? Author Type: Physician Type: [...] prolactin as that will be counterproductive Karina Vincent MD., F.A.C.E. DATE of SERVICE: June 13, 2023 TIME of SERVICE: 10:12 [place] [id number] History of Present illness Narrative* Karina Vincent MD - 06/13/2023 10:12 AM EDT Endocrinology/Initial [...] BLD (R79.89) Elevated prolactin level SIGNATURE: Karina Vincent MD DATE of SERVICE: June 13, 2023 TIME of SERVICE: 10:12 AM documented in this encounterFire[facility]11-18-2021 NoteHNO ID: [id number] Author: Renetta Beltran MD Service: Reproductive Endocrinology [...] Dr. Renetta Beltran M.D. Reproductive Endocrinology and InfertilityVa [id number] NoteHNO ID: [id number] Author: RT Juan(R) Service: Radiology Author Type: [...] BY: RT Juan(R) January 20, 2021 12:29 [facility] note Future Appointments Appointment Date:10/01/2023 09:00:00 AM Scheduled Provider: Location:[facility] Appointment Type:Surgery FT [facility] Evaluation note* Diagnosis Prolactinoma [...] unspecified gastritis type documented in this encounter [facility] Work Phone: Evaluation note* Diagnosis Female infertility Female infertility of unspecified origin Vaginal odor Unspecified symptom associated with female genital organs documented in this encounter [facility] Healthcare[facility]* Diagnosis Myalgia- Primary Unspecified myalgia and myositis documented in this encounter [facility]* Diagnosis Fallopian tube disorder- Primary Unspecified noninflammatory disorder of ovary, fallopian tube, and broad ligament documented in this encounter [facility]* Diagnosis Myalgia- Primary Unspecified myalgia and myositis Fallopian tube disorder Unspecified noninflammatory disorder of ovary, fallopian tube, and broad ligament Anovulation Female infertility associated with anovulation Female infertility Female infertility of unspecified origin documented in this encounter [facility] HealthcareHospital course Narrative No data available for this section [facility] Hospital Discharge instructions* Attachments The following attachments cannot be sent through Care Everywhere. * Gastritis ED (Luxembourger) * Nausea and Vomiting, Adult ED ([facility]) * Cannabis hyperemesis syndrome ([facility]) [facility] Hospital Discharge instructions No data available for this section [facility] Progress note No data available for this section [facility] Summary Purpose Family History [...] BRAIN BRAIN STEM W/O W/CONTRAST MATERIAL Karina Vincent MD [address] [place] [address] [place] [address] Referral ID Status Reason Start Date Expiration Date Visits Requested Visits Authorized [id number] Pending Review Auto-Generat ed Referral 07/11/2023 08/09/2024 1 1 Additional Source Comments INFORMATION SOURCE (unrecogn ized section and content) DATE CREATED AUTHOR 04/15/2020 [facility] DATE CREATED AUTHOR AUTHOR'S ORGANIZ ATION 01/22/2021 [facility] DATE CREATED AUTHOR AUTHOR'S ORGANIZ ATION 07/30/2023 [facility] DATE CREATED AUTHOR AUTHOR'S ORGANIZ ATION 08/24/2023 [facility] DATE CREATED AUTHOR AUTHOR'S ORGANIZ ATION 09/19/2023 [facility] DATE CREATED AUTHOR AUTHOR'S ORGANIZ ATION 10/16/2023 Sandra Ballard [facility] DATE CREATED AUTHOR AUTHOR'S ORGANIZ ATION [facility]/18/2023 [facility] DATE CREATED AUTHOR AUTHOR'S ORGANIZ ATION 10/19/2023 Sandra Ballard [facility] DATE CREATED AUTHOR AUTHOR'S ORGANIZ ATION 02/21/2024 Sandra Gautam [facility] DATE CREATED AUTHOR AUTHOR'S ORGANIZ ATION 02/23/2024 [facility] DATE CREATED AUTHOR AUTHOR'S ORGANIZ ATION 02/24/[address] [facility] DATE CREATED AUTHOR AUTHOR'S ORGANIZ ATION 04/13/[address] [facility] DATE CREATED AUTHOR AUTHOR'S ORGANIZ ATION 04/16/2024 [facility] EPIC Source Comments (unrecognize d section and content) In the event this informatio n is protected by the Federal Confidentiality of Alcohol and Drug Abuse Patient Records regulations: The Federal rules restrict any use of the information to criminally investigate or prosecute any alcohol or drug abuse patient.[facility] the event this information is protected by the Federal Confidentiality of Alcohol and Drug Abuse Patient Records regulations: The Federal rules restrict any use of the information to criminally investigate or prosecute any alcohol or drug abuse patient.[facility] Reason for Visit (unrecogniz ed section and content) Reason Comments Pituitary Problem Reason Comments n/v. chest pain Reason Comments Results Reason Comments Telehealth Infertility Reason Comments Infertility Care Teams (unrecognized sec tion and content) Drafting Engineer Relationship Specialty Start Date End Date Uriel Meade DO [facility] [place] [address] Referring Nematology Teacher 06/05/23 Drafting Engineer Relationship Specialty Start Date End Date Uriel Meade DO [facility] [place] [address] Referring Nematology Teacher 06/05/23 Drafting Engineer Relationship Specialty Start Date End Date Carolyne Collazo MD [address] [place] [address] PCP - General Family Medicine 08/28/22 Drafting Engineer Relationship Specialty Start Date End Date Carolyne Collazo MD [address] [place] [address] PCP - General Family Medicine 08/28/22 Drafting Engineer Relationship Specialty Start Date End Date Carolyne oCllazo MD [address] [place] [address] PCP - General Family Medicine 08/28/22 Drafting Engineer Relationship Specialty Start Date End Date Carolyne Collazo MD [address] [place] [address] PCP - General Family Medicine 08/28/22 Drafting Engineer Relationship Specialty Start Date End Date Carolyne Collazo MD [address] [place] [address] PCP - General Family Medicine 08/28/22 Drafting Engineer Relationship Specialty Start Date End Date Carolyne Collazo MD [address] [place] [address] PCP - General Family Medicine 08/28/22 Drafting Engineer Relationship Specialty Start Date End Date Carolyne Collazo MD [address] [place] [address] PCP - General Family Medicine 08/28/22 Drafting Engineer Relationship Specialty Start Date End Date Carolyne Collazo MD [address] [place] [address] PCP - General Family Medicine 08/28/22 Drafting Engineer Relationship Specialty Start Date End Date Carolyne Collazo MD [address] [place] [address] PCP - General Family Medicine 08/28/22 Drafting Engineer Relationship Specialty Start Date End Date Carolyne Collazo MD [address] [place] [address] PCP - General Family Medicine 08/28/22 Scheduled [...] BE BASED ON THE PRIMARY CLINICAL RECORDS. [facility] [employer] [facility]. provides no warranty or guarantee of the accuracy or completeness of information in this document.
--- NOTE | 2024-04-16 07:02 | US_ITS ---
The [address] [address] Patient Name: INDU ST MRN: [id number] date: 1995 Sex: F Assigned Patient Location: US Current Patient Location: US Accession/Order Number: [id number] Exam Date: 04/16/2024 07:03 Report Date: 04/16/2024 11:31 At the request of: JADE MARIANO Procedure: US pelvis transvaginal EXAMINATION: US pelvis transvaginal HISTORY: Encounter for ART procedure COMPARISON: 04/14/2024 FINDINGS: The uterus is normal in size, contour and echotexture measuring 9.6 x 4.4 x 5.4 cm per the uterus is anteverted. The endometrium measures 6 mm, trilaminar, normal The right ovary is normal measuring 3.4 x 5.1 x 2.6 cm. 14 follicles. The left ovary is normal measuring 3.6 x 4.6 x 3.3 cm. 7 follicles. No free fluid US/US pelvis transvaginal IMPRESSION: Normal exam. Electronically authenticated by: ROMY VIRGEN Date: 04/16/2024 11:31
== END 2024-04-16 06:59 | disposition home or self-care (01) ==
LOC: US 06:58
PROVIDERS: PCP Family Medicine; Visit Provider Obstetrics & Gynecology Reproductive Endocrinology
DX: Z31.83 Encounter for assisted reproductive fertility procedure cycle (principal)
CPT/HCPCS: 76830

== ENCOUNTER 2024-04-17 07:00 | Outpatient (OUT) | payer BC, SELFPAY ==
--- NOTE | 2024-04-17 07:03 | US_ITS ---
[address] [address] Patient Name: INDU ST MRN: [id number] date: 1995 Sex: F Assigned Patient Location: US Current Patient Location: US Accession/Order Number: [id number] Exam Date: 04/17/2024 07:08 Report Date: 04/17/2024 07:53 At the request of: NON-STAFF PHYSICIAN Procedure: US pelvis transvaginal EXAMINATION: US pelvis transvaginal HISTORY: Encounter for ART procedure ; IVF follicle study COMPARISON: Ultrasound pelvis 04/16/2024 TECHNIQUE: Transabdominal and/or transvaginal sonographic examination was performed as indicated by examination type. FINDINGS: UTERUS: Normal size and appearance. Uterus size: 9.1 x 5.4 x 4.2 cm ENDOMETRIUM: Normal homogeneous appearance. Endometrial thickness: 6 mm RIGHT OVARY: Contains 11 follicles ranging between 10 mm and 21 mm except for a single 5 mm follicle. Duplex Doppler demonstrates normal waveform and flow; resistive index 0.5. Ovary size: 6.1 x 3.7 x 3.1 cm LEFT OVARY: Contains 7 follicles evenly distributed between 4 mm and 18 mm in size. Duplex Doppler demonstrates normal waveform and flow; resistive index 0.5. Ovary size: 5.7 x 2.9 x 2.0 cm CUL-DE-SAC: Unremarkable. No significant free fluid. BLADDER: Unremarkable. OTHER: None. US/US pelvis transvaginal IMPRESSION: 1. Thin endometrium, 6 mm in thickness. 2. Multiple ovarian follicles bilaterally as detailed above. Electronically authenticated by: BRIAN NAYAK Date: 04/17/2024 07:53
--- OUTSIDE RECORDS SUMMARY | 2024-04-17 07:03 | XMS_ITS | CCD ---
Author Organization [facility] Care Team Providers Care Lacing String Cutter Name Role Phone YASMIN MARTINEZ Consulting Unavailable CAROLYNE COLLAZO Primary Care Unavailable YASMIN MARTINEZ Admitting Unavailable RONALDKYASMIN Attending Unavailable GIGI COBB Unavailable KARASIK, YASMIN Admitting Unavailable KARASIK, YASMIN Attending Unavailable KARILDEFONSOKYASMIN Consulting Unavailable KARASIKYASMIN Consulting Unavailable KARASIK, YASMIN Admitting Unavailable KARASIK, YASMIN Attending Unavailable HEATHER MARTINEZORY Primary Care Unavailable KARILDEFONSOKYASMIN Admitting Unavailable RONALDKYASMIN Attending Unavailable Uriel Meade DO Unavailable Unavailable Primary Care Provider UnavailKARINA Tilley Attending Unavailable Carolyne Collazo Primary Care Physician [phone] GWEN DANIELSON Attending Unavailable Mouchli, Mohamad A. Referring Unavailable Mouchli, Mohamad A. Admitting Unavailable Zenia, Mohamad A. Attending Unavailable Alex Knutson Attending Unavailable Carolyne Collazo Referring Unavailable Mouchli, Mohamad A. Referring Unavailable Mouchli, Mohamad A. Attending Unavailable Mohelena, Mohamad ATyrone Admitting Unavailable Carolyne Collazo MD Primary Care Provider Carolyne Collazo Attending Unavailable Carolyne Collazo Admitting Unavailable Carolyne Collazo Attending Unavailable Carolyne Collazo Admitting Unavailable MD JADE LEDBETTER Attending Unavailable MD JADE LEDBETTER Admitting Unavailable CAROLYNE COLLAZO Attending Unavailable CAROLYNE COLLAZO Attending Unavailable CAROLYNE COLLAZO Attending Unavailable CAROLYNE COLLAZO Attending Unavailable URIEL MEADE Attending Unavailable CAROL MAGAÑA Attending Unavailable Allergies Allergy Classification Reported Allergen(s) Allergy Type Date of Onset Reaction(s) Facility (1 source) No Known Medication Allergies; Translations: [No Known Medication Allergies] Propensity to adverse reactions (disorder) [facility] Repository (17 sources) House dust mite Allergy to substance [...] 0, Anxiety Start Date: 09/09/19 Status: Ordered ARIPiprazole 5 mg oral tablet (1 source) Atypical Antipsychotic Start: 04-14-2024 End: 05-14-2024 take 1 tablet by mouth once daily ARIPiprazole (Abilify) 5 MG tablet Indications: Bipolar affective disorder, currently manic, moderate (CMS/HCC) Take 1 tablet (5 mg) by mouth Daily 30 tablet 04/14/2024 05/14/2024 Active budesonide-formoterol (Breyna) 80-4.5 MCG/ACT inhaler (17 sources) Start: 08-23-2023 End: 08-22-2024 take 2 puff(s) by mouth once daily budesonide-formotero l (Breyna) 80-4.5 MCG/ACT inhaler Indications: Mild intermittent asthma without complication (CMS/HCC) Inhale 2 puffs Daily Rinse mouth with water after use to reduce aftertaste and incidence of candidiasis. Do not swallow. 10.2 g 2 08/23/2023 08/22/2024 Active cholecalciferol 0.025 mg oral tablet (6 sources) Vitamin D Start: 02-21-2024 take 1 [...] / eicosapentaenoic acid 180 mg oral capsule (10 sources) Start: 01-22-2024 End: 02-20-2025 take 1 capsule by mouth once daily fish oil concentrate (Norwood-3) 1000 MG capsule Indications: Female infertility , [...] gram, Refills(s) 0, Pharmacy: [id number], 168, cm, 09/15/19 7:03:00 EDT, Height/Length Measured, [...] tablet 07/20/2023 08/09/2023 Active polyethylene glycol 3350 64382 mg powder for oral solution (2 sources) Osmotic Laxative Start: 09-13-2023 take 17 g by mouth once daily Miralax 3350 17 gram packet 17 gm, Oral, Daily, # 527 gm, Refills(s) 5, Pharmacy: [facility] #[id number], 167, cm, 09/13/23 14:57:00 EDT, Height/Length Dosing, 48.9, kg, 09/13/23 14:57:00 EDT, Weight Dosing Start Date: 09/13/23 Status: Ordered Vit-Fe Fumarate-FA ( Vitamins) 28-0.8 MG tablet (10 sources) Start: 02-21-2024 End: 02-20-2025 take 1 tablet by mouth once daily Vit-Fe Fumarate-FA ( Vitamins) 28-0.8 MG tablet Indications: Female infertility , Fallopian tube disorder , Anovulation Take 1 tablet by mouth Daily 30 tablet 02/21/2024 02/20/2025 Active Start: 01-22-2024 End: 01-21-2025 [...] breakfast, # 30 tab(s), Refills(s) 1, Pharmacy: [facility] #[id number], 168, cm, 09/09/19 8:18:00 EDT, Height/Length Measured, [...] Chronic Attention-deficit, conduct, and disruptive behavior disorders (17 sources) Attention deficit hyperactivity disorder, combined type; [...] without bleeding] Onset: 09-13-2023 Episodic Female infertility (18 sources) Female infertility; Translations: [Female infertility, unspecified] [...] 05-16-2013 Chronic Other aftercare (1 source) Other assisted (current) drug therapy; Translations: [OTH [employer]NE[employer]IN [employer] CURRENT DRUG THERAPY] Onset: 03-24-2020 Episodic Other and unspecified benign neoplasm (3 sources) Prolactinoma; Translations: [Benign neoplasm of pituitary gland] 07-11-2023 Episodic Other and unspecified benign neoplasm (1 source) Benign neoplasm of pituitary gland; 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)] Onset: 06-13-2023 Episodic Other connective tissue disease (11 sources) Muscle pain; Translations: [Myalgia, unspecified site] [...] vagina] 01-16-2024 Episodic Other female genital disorders (10 sources) Fallopian tube disorder; Translations: [Noninflammatory disorder [...] te Episodic/Chronic Genitourinary symptoms and ill-defined conditions (17 sources) Proteinuria; Translations: [Proteinuria, unspecified] Onset: 08-03-2010 [...] Reference Range Facility [facility] TRANSVAGINALon The [address] [address] Ultrasound Report Signed Patient: INDU ST MR#: [id number] : 1995 Acct:[id number] Age/Sex: 28 / F ADM Date: 04/16/24 Loc: US Attending Dr: Jade Ledbetter M.D. Ordering Physician: Jade Ledbetter M.D. Date of Service: 04/16/24 Procedure(s): US pelvis transvaginal Accession Number(s): [id number] cc: CAROLYNE COLLAZO ; Jade Ledbetter M.D. The [place] [address] Patient Name: INDU ST MRN: [facility]:[id number] date: 1995 Sex: F Assigned Patient Location: US Current Patient Location: US Accession/Order Number: [id number] Exam Date: 04/16/2024 07:03 Report Date: 04/16/2024 11:31 At the request of: JADE LEDBETTER Procedure: US pelvis transvaginal EXAMINATION: US pelvis transvaginal HISTORY: Encounter for ART procedure COMPARISON: 04/14/2024 FINDINGS: The uterus is normal in size, contour and echotexture measuring 9.6 x 4.4 x 5.4 cm per the uterus is anteverted. The endometrium measures 6 mm, trilaminar, normal The right ovary is normal measuring 3.4 x 5.1 x 2.6 cm. 14 follicles. The left ovary is normal measuring 3.6 x 4.6 x 3.3 cm. 7 follicles. No free fluid US/US pelvis transvaginal IMPRESSION: Normal exam. Electronically authenticated by: ROMY MCKEON Date: 04/16/2024 11:31 Dictated By: Romy Mckeon M.D. Signed By: 04/16/24 1133 DD/ 1131 TD/TT: Etcher Apprentice Photoengraving: [facility] Radiology, Radiologtaylor kc MD - 04/16/2024 [place] [address] Ultrasound Report Signed Patient: INDU ST MR#: [id number] : 1995 Acct:[id number] Age/Sex: 28 / F ADM Date: 04/16/24 Loc: US Attending Dr: Jade Ledbetter M.D. Ordering Physician: Jade Ledbetter M.D. Date of Service: 04/16/24 Procedure(s): US pelvis transvaginal Accession Number(s): [id number] cc: CAROLYNE COLLAZO ; Jade Ledbetter M.D. [place] [id number] Patient Name: INDU ST MRN: [id number] date: 1995 Sex: F Assigned Patient Location: US Current Patient Location: US Accession/Order Number: [id number] Exam Date: 04/16/2024 07:03 Report Date: 04/16/2024 11:31 At the request of: JADE LEDBETTER Procedure: US pelvis transvaginal EXAMINATION: US pelvis transvaginal HISTORY: Encounter for ART procedure COMPARISON: 04/14/2024 FINDINGS: The uterus is normal in size, contour and echotexture measuring 9.6 x 4.4 x 5.4 cm per the uterus is anteverted. The endometrium measures 6 mm, trilaminar, normal The right ovary is normal measuring 3.4 x 5.1 x 2.6 cm. 14 follicles. The left ovary is normal measuring 3.6 x 4.6 x 3.3 cm. 7 follicles. No free fluid US/US pelvis transvaginal IMPRESSION: Normal exam. Electronically authenticated by: ROMY MCKEON Date: 04/16/2024 11:31 Dictated By: Romy Mckeon M.D. Signed By: 04/16/24 1133 DD/ 1131 TD/TT: Etcher Apprentice Photoengraving: [facility] Radiology Study observation (narrative) [facility] US PELVIS TRANSVAGINALOmarleen jorge By: Radiologist Radiology on 04-16-2024 [facility] Work Phone: [place] [address] Ultrasound Report Signed Patient: INDU ST MR#: [id number] : 1995 Acct:[id number] Age/Sex: 28 / F ADM Date: 04/14/24 Loc: US Attending Dr: Jade Ledbetter M.D. Ordering Physician: Jade Ledbetter M.D. Date of Service: 04/14/24 Procedure(s): US pelvis transvaginal Accession Number(s): [id number] cc: CAROLYNE COLLAZO ; Jade Ledbetter M.D. The [place] [id number] Patient Name: INDU ST MRN: [facility]:[id number] date: 1995 Sex: F Assigned Patient Location: US Current Patient Location: US Accession/Order Number: [id number] Exam Date: 04/14/2024 07:00 Report Date: 04/14/2024 [...] Signed By: 04/14/24 0745 DD/ 0742 TD/TT: Etcher Apprentice Photoengraving: [facility] Radiology, Radiologi MD de - 04/14/2024 [place] [address] Ultrasound Report Signed Patient: INDU ST MR#: [id number] : 1995 Acct:[id number] Age/Sex: 28 / F ADM Date: 04/14/24 Loc: US Attending Dr: Jade Ledbetter M.D. Ordering Physician: Jade Ledbetter M.D. Date of Service: 04/14/24 Procedure(s): US pelvis transvaginal Accession Number(s): [id number] cc: CAROLYNE COLLAZO ; Jade Ledbetter M.D. [place] [id number] Patient Name: INDU ST MRN: [id number]:[id number] date: 1995 Sex: F Assigned Patient Location: US Current Patient Location: US Accession/Order Number: [id number] Exam Date: 04/14/2024 07:00 Report Date: 04/14/2024 [...] Mckeon M.D. Signed By: 04/14/2445 DD/ TD/TT: Etcher Apprentice Photoengraving: [facility] Radiology Study observation (narrative) [facility] US PELVIS TRANSVAGINALOrdere d By: Radiologist Radiology on 04-14-2024 [facility] Work Phone: [facility] PELVIS TRANSVAGINALon [address] [address] Ultrasound Report Signed Patient: INDU ST MR#: [id number] : 1995 Acct:[id number] Age/Sex: 28 / F ADM Date: 04/08/24 Loc: US Attending Dr: Jade Ledbetter M.D. Ordering Physician: Jade Ledbetter M.D. Date of Service: 04/08/24 Procedure(s): US pelvis transvaginal Accession Number(s): [id number] cc: CAROLYNE COLLAZO ; Jade Ledbetter M.D. [address] [address] Patient Name: INDU ST MRN: [id number] date: 1995 Sex: F Assigned Patient Location: US Current Patient Location: US Accession/Order Number: [id number] Exam Date: 04/08/2024 13:45 Report Date: 04/08/2024 [...] Nayak M.D. Signed By: 04/08/24 1442 DD/ 1439 TD/TT: Etcher Apprentice Photoengraving: [facility] Radiology, Radiologi MD de - 04/08/2024 [place] [address] Ultrasound Report Signed Patient: INDU ST MR#: [id number] : 1995 Acct:[id number] Age/Sex: 28 / F ADM Date: 04/08/24 Loc: US Attending Dr: Jade Ledbetter M.D. Ordering Physician: Jade Ledbetter M.D. Date of Service: 04/08/24 Procedure(s): US pelvis transvaginal Accession Number(s): [id number] cc: CAROLYNE COLLAZO ; Jade Ledbetter M.D. The [place] [address] Patient Name: INDU ST MRN: [facility]:[id number] date: 1995 Sex: F Assigned Patient Location: US Current Patient Location: US Accession/Order Number: [id number] Exam Date: 04/08/2024 13:45 Report Date: 04/08/2024 [...] Signed By: 04/08/24 1442 DD/ 143 TD/TT: Etcher Apprentice Photoengraving: [facility] Radiology Study observation (narrative) [facility] US PELVIS TRANSVAGINALOrdere d By: Radiologist Radiology on 04-08-2024 [facility] Work Phone: [facility]LR HEMOGLOBIN A1Con 025 Glucose [Mass/Vol] 105 mg/dL [facility] HbA1c (Bld) [Mass fraction] 5.3 % 4.5 - 6.2 % [facility] Comment on above: ADA RECOMMENDED LIMI T 4.0 - 6.0 ADA THERAPEUTIC TARGET < 7.0 ACTION SUGGESTED > 7.0 [facility] JESUS Individual Abson 024 Anti-Centro B Ab See Refr Report Invalid Interpretation Code [facility] Comment on above: Performed By: #### 2 [id number] #### [facility] [address] [place] [address] WRITTEN AUTHORIZATIONon 02-02 Written Authorization Comment Invalid Interpretation Code [facility] Comment on above: Result Comment: Writ ten Authorization Received. Authorization received from ORIGINAL ORDER 02-20-2024 Logged by Valentina Peters Performed at: [facility] [id number] PhD Randa Ochoa Performed By: #### 3 [id number] #### [facility] [address] [place] [address] RF Quanton 02-20-2024 Rheumatoid factor Qn 13.2 International_Unit/mL Invalid Interpretation Code <14.0 [facility] Comment on above: Result Comment: Perf ormed at: [facility] [address] [id number] PhD Randa Ochoa Performed By: #### 1 [id number] #### [facility] [address] [place] [address] CBC w/ Auto Diffon 4 Basophils/100 WBC (Bld) 0.3 % Normal 0.0-2.0 [facility] Comment on above: Performed By: #### 2 [id number] #### [facility] [address] [place] [address] Erythrocyte distribution width (RBC) [Ratio] 14.3 % High 10.9-14.2 [facility] Comment on above: Performed By: #### 2 [id number] #### [facility] [address] [place] [address] Hematocrit (Bld) [Volume fraction] 40.4 % Normal 34.0-46.0 [facility] Comment on above: Performed By: #### 2 [id number] #### [facility] [address] [place] [address] Lymphocytes/100 WBC (Bld) 16.1 % Normal 14.0-50.0 [facility] Comment on above: Performed By: #### 2 252135 #### [facility] [address] [place] [address] Neutrophils/100 WBC (Bld) 75.3 % High 36.0-75.0 [facility] Comment on above: Performed By: #### 2 940643 #### [facility] [address] [place] [address] Platelet mean volume (Bld) [Entitic vol] 8.5 fL Normal 6.4-10.8 [facility] Comment on above: Performed By: #### 2 837334 #### [facility] [address] [place] [address] Basophils/Leukocytes Auto (Bld) [Pure # fraction] 0.0 E9/L Normal 0.0-0.2 [facility] Comment on above: Performed By: #### 2 665800 #### [facility] [address] [place] [address] Eosinophils (Bld) [#/Vol] 0.0 E9/L Normal 0.0-0.5 [facility] Comment on above: Performed By: #### 2 264405 #### [facility] [address] [place] [address] Eosinophils/100 WBC (Bld) 0.4 % Normal 0.0-8.0 [facility] Comment on above: Performed By: #### 2 [id number] #### [facility] [address] [place] [address] Hemoglobin (Bld) [Mass/Vol] 14.2 g/dL Normal 12.0-16.0 [facility] Comment on above: Performed By: #### 2 290860 #### [facility] [address] [place] [address] Lymphocytes (Bld) [#/Vol] 1.1 E9/L Normal 1.0-4.0 [facility] Comment on above: Performed By: #### 2 270429 #### [facility] [address] [place] [address] MCH (RBC) [Entitic mass] 30.4 pg Normal 27.0-34.0 [facility] Comment on above: Performed By: #### 2 629432 #### [facility] [address] [place] [address] MCHC (RBC) [Mass/Vol] 35.1 g/dL Normal 31.4-36.0 [facility] Comment on above: Performed By: #### 2 307485 #### [facility] [address] [place] [address] MCV (RBC) [Entitic vol] 86.7 fL Normal 80.0-100.0 [facility] Comment on above: Performed By: #### 2 339563 #### [facility] [address] [place] [address] Monocytes (Bld) [#/Vol] 0.5 E9/L Normal 0.2-1.0 F [facility] Comment on above: Performed By: #### 2 [id number] #### [facility] [address] [place] [address] Neutrophils (Bld) [#/Vol] 5.1 E9/L Normal 2.0-7.5 [facility] Comment on above: Performed By: #### 2 757530 #### [facility] [address] [place] [address] Platelet 235.0 E9/L Normal 150.0-500.0 [facility] Comment on above: Performed By: #### 2 576902 #### [facility] [address] [place] [address] RBC (Bld) [#/Vol] 4.7 E12/L Normal 4.3-5.9 [facility] Comment on above: Performed By: #### 2 553207 #### [facility] [address] [place] [address] WBC corrected for nucl RBC Auto (Bld) [#/Vol] 6.8 E9/L Normal 4.0-11.0 [facility] Comment on above: Performed By: #### 2 887343 #### [facility] [address] [place] [address] CHEMISTRYOrdered By: SYSTEM SYSTEM on 02-18-2024 Albumin [...] 02-18-2024 Albumin [Mass/Vol] 4.5 g/dL Normal 3.3-5.0 [facility] Comment on above: Performed By: #### 2 [id number] #### [facility] [address] [place] [address] Albumin/Globulin (S) [Mass conc ratio] 1.6 Normal 1.1-2.2 [facility] Comment on above: Performed By: #### 2 867069 #### [facility] [address] [place] [address] ALP [Catalytic activity/Vol] 55 Int._Unit/L Normal 21-98 [facility] Comment on above: Performed By: #### 2 709840 #### [facility] [address] [place] [address] ALT No additional P-5'-P [Catalytic activity/Vol] 13 Int._Unit/L Normal 6-46 [facility] Comment on above: Performed By: #### 2 851537 #### [facility] [address] [place] [address] Anion gap [Moles/Vol] 14 mmol/L Normal 6-16 [facility] Comment on above: Performed By: #### 2 418939 #### [facility] [address] [place] [address] AST [Catalytic activity/Vol] 13 Int._Unit/L Normal 5-43 [facility] Comment on above: Performed By: #### 2 681871 #### [facility] [address] [place] [address] Bilirubin [Mass/Vol] 0.5 mg/dL Normal 0.0-1.1 [facility] Comment on above: Performed By: #### 2 226017 #### [facility] [address] [place] [address] Calcium [Mass/Vol] 9.3 mg/dL Normal 8.9-11.1 [facility] Comment on above: Performed By: #### 2 250801 #### [facility] [address] [place] [address] Chloride [Moles/Vol] 103 mmol/L Normal 101-111 [facility] Comment on above: Performed By: #### 2 165076 #### [facility] [address] [place] [address] CO2 [Moles/Vol] 26 mmol/L Normal 21-31 [facility] Comment on above: Performed By: #### 2 524349 #### [facility] [address] [place] [address] Creatinine [Mass/Vol] 0.7 mg/dL Normal 0.5-1.3 [facility] Comment on above: Performed By: #### 2 059920 #### [facility] [address] [place] [address] Globulin (S) [Mass/Vol] 2.9 g/dL Normal 1.4-4.0 [facility] Comment on above: Performed By: #### 2 628913 #### [facility] [address] [place] [address] Glucose [Mass/Vol] 86 mg/dL Normal 55-199 [facility] Comment on above: Performed By: #### 2 189843 #### [facility] [address] [place] [address] Potassium [Moles/Vol] 4.0 mmol/L Normal 3.5-5.3 [facility] Comment on above: Performed By: #### 2 456422 #### [facility] [address] [place] [address] Protein [Mass/Vol] 7.4 g/dL Normal 6.0-7.8 [facility] Comment on above: Performed By: #### 2 971628 #### [facility] [address] [place] [address] Sodium [Moles/Vol] 139 mmol/L Normal 135-145 [facility] Comment on above: Performed By: #### 2 385036 #### [facility] [address] [place] [address] Urea nitrogen [Mass/Vol] 13 mg/dL Normal 5-21 [facility] Comment on above: Performed By: #### 2 745087 #### [facility] [address] [place] [address] Urea nitrogen/Creatinine [Mass ratio] 19 No Units Normal 10-20 [facility] Comment on above: Performed By: #### 2 150617 #### [facility] [address] [place] [address] [facility] CBC W/ AUTO DIFFon 02-02 EOSINOPHILS/100 LEUKOCYTES:NFR:PT:BLD:Q N:AUTOMATED COUNT 0.4 % 0.0 - 8.0 % [facility] EOSINOPHILS:NCNC:PT:BLD :QN: 0 [facility] BASOPHILS/LEUKOCYTES:NF R.DF:PT:BLD:QN:AUTOMATE D COUNT 0 [facility] ERYTHROCYTE MEAN CORPUSCULAR HEMOGLOBIN CONCENTRATION:MCNC:PT:R BC:QN 35.1 [facility] ERYTHROCYTE MEAN CORPUSCULAR HEMOGLOBIN:ENTMASS:PT:R BC:QN 30.4 pg 27.0 - 34.0 pg [facility] ERYTHROCYTE MEAN CORPUSCULAR VOLUME:ENTVOL:PT:RBC:QN :AUTOMATED COUNT 86.7 fL 80.0 - 100.0 fL [facility] ERYTHROCYTES:NCNC:PT:BL D:QN:AUTOMATED COUNT 4.7 [facility] HEMOGLOBIN:MCNC:PT:BLD: QN: 14.2 [facility] LEUKOCYTES 6.8 [facility] MONOCYTES:NCNC:PT:BLD:Q N:AUTOMATED COUNT 0.5 [facility] NEUTROPHILS:NCNC:PT:BLD :QN:AUTOMATED COUNT 5.1 [facility] Interpretation and review of laboratory results Abnormal [facility] LYMPHOCYTES:NCNC:PT:BLD :QN: 1.1 [facility] Platelets (Bld) [#/Vol] 235 10*3/uL [facility] Original Ordering Provider: MD Carolyne Collazo [facility] HEMATOLOGYOrdered By: SYSTEM SYSTEM on 02-18-2024 [...] (Bld) [Velocity] 14 mm/h Normal 0-34 [facility] Comment on above: Performed By: #### 1 [id number] #### [facility] [address] [place] [address] eGFRon 02-18-2024 eGFR 120 mL/min/1.73 m2 Normal >=59 [facility] Comment on above: Performed By: #### 1 [id number] #### [facility] [address] [place] [address] ALL THYROID STIM HORMONEon 1 04-15-2023 TSH Qn 1.748 m[IU]/L [facility] 024 HCG QUANTITATIVE <1 mIU/mL [facility] Comment on above: 5-50 0.2-1 WEEK 50-500 1-2 WEEKS 100-5,000 2-3 WEEKS 500-10,000 3-4 WEEKS 1,000-50,000 4-5 WEEKS 10,000-100,000 5-6 WEEKS 15,000-200,000 6-8 WEEKS 10,000-100,000 2-3 MONTHS [facility] PREG QUANT HCGon 024 HCG QUANTITATIVE <1 mIU/mL [facility] Comment on above: 5-50 0.2-1 WEEK 50-500 1-2 WEEKS 100-5,000 2-3 WEEKS 500-10,000 3-4 WEEKS 1,000-50,000 4-5 WEEKS 10,000-100,000 5-6 WEEKS 15,000-200,000 6-8 WEEKS 10,000-100,000 2-3 MONTHS [facility] ALL PROGESTERONEon 4 PROGESTERONE 10.8 ng/mL . [facility] Comment on above: Follicular phase 0.1 - 0.9 Luteal phase 1.8 - 23.9 Ovulation phase 0.1 - 12.0 First trimester 11.0 - 44.3 Second trimester 25.4 - 83.3 Third trimester 58.7 - 214.0 Postmenopausal 0.0 - 0.1 Performed at: [address] [id number] Employee Benefits Insurance Agent: Don Tolentino PhD, Phone: [phone] [facility] Surgical Pathology Reporton 10-17-2023 Surgical Pathology Report [address] [place] [address]- Surgical Pathology Report Collected Date/Time: 10/15/2023 09:32 [...] is entirely submitted in one cassette. (DC) DC:[facility] Microscopic Description A-C: Microscopic examination performed unless gross only specified. The use of one or more reagents in the above tests is regulated as an analyte specific reagent (ASR). The test or tests are ordered following initial H&E microscopic examination. The performance characteristics were determined by the Laboratory of [facility]. They have not been cleared or approved by the US Food and Drug Administration. The FDA has determined that such clearance or approval is not necessary. These tests are used for clinical purposes. They should not be regarded as investigational or for research. Appropriate positive and negative controls are performed and are acceptable. Normal [facility] Comment on above: Performed By: #### 4 [id number] #### [facility] [address] [place] [address] Main OR Intraoperative Recor don 10-16-2023 Main OR Intraoperative Record Main OR Intraoperative Record IntraOp Document Type FT Summary Primary Physician: Alex Knutson MD Finalized Date/Time: 10/16/23 12:11:53 Pt. Name: INDU ST/Sex: 1995 Female Med Rec #: [id number] Physician: Alex Knutson MD Financial #: [id number] Pt. Type: O Room/Bed: / Admit/Disch: 10/15/23 [...] RN, Promise Willis Role Performed Anesthesiologist of Hall Director - Primary Scrub - Primary Record Time [...] and tissue Entry 1 Skin Integrity Intact, [place], Warm, & Skin Abnormality No Dry Outcomes [...] (more content not included)... Normal [facility] B hCG Qualon 10-15-2023 Beta HCG ( test) Ql Negative Normal [facility] Comment on above: Performed By: #### 2 [id number] #### [facility] [address] [place] [address] Discharge Instructionson Discharge Instructions Discharge Instruc tions [...] weeks Comments: Call for any problems. Where: [address] [place] [address], [address] [place] [address]- [phone] Business (1) Medications What How Much When [...] (more content not included)... Normal [facility] Comment on above: Result Comment: Elec tronically Signed By: Obi WHITE, Mery\.seble\Date and Time Signed: 10/15/23 09:50 EDT Noemi 10-15-2023 Esophagogastroduodenosc opy EGD Patient: INDU ST Age: 28 years Sex: Female : 1995 Associated Diagnoses: None Author: Zenia ELLISON, Alex Berry Pre-Procedure Procedure Date 10/15/2023 09:52:00 . Procedure [...] Daily, # 527 gm, Refills(s) 5, Pharmacy: [facility] #[id number], 167, cm, 09/13/23 14:57:00 EDT, Height/Length Dosing, 48.9, kg, 09/13/23 14:57:00 EDT, Weight Dosing Pantoprazole [address] Tab: 40 mg = 1 tab(s), Oral, Daily, # 30 tab(s), Refills(s) 4, Pharmacy: [facility] #[id number], 167, cm, 09/13/23 14:57:00 EDT, Height/Length Dosing, [...] Normal duodenum. Biopsies obtained Images Procedure images: Rec_hd_video_ [id number].jpg Rec1_hd_video_ [id number].jpg Rec1_hd_video_ [id number].jpg Rec1_hd_video_ [id number].jpg Rec1_hd_video_ [id number].jpg Rec1_hd_video_ [id number].jpg . Post-Procedure Complications: none. Estimated blood loss: minimal. Specimens: sent to pathology. Devices/ implants: none left in place. Impression and Plan mild gastropathy Recommendations: -Resume previous diet -Resume home medications -Await pathology results, follow in GI clinic in 1-2 after discharge Ramón [facility] Comment on above: Other Comment: Griselda blanco Attachment - attachment storage system not supported [id number] Can be viewed in source system Missing Attachment - attachment storage system not supported [id number] Can be viewed in source system Missing Attachment - attachment storage system not supported [id number] Can be viewed in source system Missing Attachment - attachment storage system not supported [id number] Can be viewed in source system Missing Attachment - attachment storage system not supported [id number] Can be viewed in source system Missing Attachment - attachment storage system not supported [id number] Can be viewed in source system Main OR PACU I Recordon 10-03 Main OR PACU I Record Main OR PACU I Rec ord PACU Phase I Document Type FT Summary Primary Physician: Alex Knutson MD Finalized Date/Time: 10/15/23 10:19:29 Pt. Name: ALMA ROSANIDU/Sex: 1995 Female Med Rec #: [id number] Physician: Alex Knutson MD Financial #: [id number] Pt. Type: O Room/Bed: / Admit/Disch: 10/15/23 [...] Crocker RN Document Signatures Signed By: Mery Crokcer RN 10/15/23 10:19 Normal [facility] Main OR Preoperative Recordo n 10-15-2023 Main OR Preoperative Record Main OR Preoperative Record Holding Area Document Type FT Summary Primary Physician: Alex Knutson MD Finalized Date/Time: 10/15/23 07:13:13 Pt. Name: INDU ST/Sex: 1995 Female Med Rec #: [id number] Physician: Alex Knutson MD Financial #: [id number] Pt. Type: O Room/Bed: / Admit/Disch: 10/15/23 [...] Atkins RN 10/15/23 07:13 Normal [facility] SEROLOGYOrdered By: Germaine Sauer on 10-15-2023 Beta HCG ( test) Ql Negative (10/15/23 7:55 AM) Normal [facility] Ambulatory Visit Summaryon 0 09-13-2023 [...] Visceral hypersensitivity syndrome Refills: 4 Pickup at [facility] #[id number] New polyethylene glycol 3350 (Miralax 3350 17 gram packet) 17 Gram By Mouth Every day Weight loss Nausea and vomiting Heartburn Bipolar disorder Stress-related physiological response affecting medical condition Visceral hypersensitivity syndrome Refills: 5 Pickup at [facility] #[id number] Unchanged alprazolam (Xanax 0.5 mg Tab) 1 [...] physician if questions or concerns Pharmacy Information [facility] #[id number]: [address], [place] [phone] Allergies No Known Medication Allergies Problems Ongoing [...] choosing us for your care. Normal [facility] Gastroenterology Office/Clin ic Noteon 09-13-2023 Gastroenterology [...] Daily, # 30 tab(s), Refills(s) 4, Pharmacy: [facility] #[id number], 167, cm, 09/13/23 14:57:00 EDT, Height/Length Dosing, 48.9, kg, 09/13/23 14:57:00 EDT, Weight Dosing polyethylene glycol 3350, 17 gm, Oral, Daily, # 527 gm, Refills(s) 5, Pharmacy: [facility] #[id number], 167, cm, 09/13/23 14:57:00 EDT, Height/Length Dosing, 48.9, kg, 09/13/23 14:57:00 EDT, Weight Dosing Colonoscopy (Hospital Procedure) EGD Endoscopy (Hospital Procedure) 2. Nausea and vomiting (R11.2: Nausea with vomiting, unspecified) Ordered: pantoprazole, 40 mg = 1 tab(s), Oral, Daily, # 30 tab(s), Refills(s) 4, Pharmacy: [facility] #[id number], 167, cm, 09/13/23 14:57:00 EDT, Height/Length Dosing, 48.9, kg, 09/13/23 14:57:00 EDT, Weight Dosing polyethylene glycol 3350, 17 gm, Oral, Daily, # 527 gm, Refills(s) 5, Pharmacy: [facility] #[id number], 167, cm, 09/13/23 14:57:00 EDT, Height/Length Dosing, 48.9, kg, 09/13/23 14:57:00 EDT, Weight Dosing Colonoscopy (Hospital Procedure) EGD Endoscopy (Hospital Procedure) 3. Heartburn (R12: Heartburn) Ordered: pantoprazole, 40 mg = 1 tab(s), Oral, Daily, # 30 tab(s), Refills(s) 4, Pharmacy: [facility] #[id number], 167, cm, 09/13/23 14:57:00 EDT, Height/Length Dosing, 48.9, kg, 09/13/23 14:57:00 EDT, Weight Dosing polyethylene glycol 3350, 17 gm, Oral, Daily, # 527 gm, Refills(s) 5, Pharmacy: [facility] #[id number], 167, cm, 09/13/23 14:57:00 EDT, Height/Length Dosing, 48.9, kg, 09/13/23 14:57:00 EDT, Weight Dosing Colonoscopy (Hospital Procedure) EGD Endoscopy (Hospital Procedure) 4. Bipolar disorder (F31.9: Bipolar disorder, unspecified) Ordered: pantoprazole, 40 mg (more content not included)... Normal [facility] Comment on above: Result Comment: Elec tronically Signed By: Zenia ELLISON, Alex Kapoor.br\Date and Time Signed: 09/13/23 15:22 EDT Angelic 08-14-2023 MAHENDRA Telephone (ENDOMN) -------- INDU ST ([id number]) 1995 F Date Time Provider Department 08/14/23 KARINA VINCENT During your visit today, we recorded the following information about you: Twyla Caraballo MA 08/14/2023 11:09 AM Signed Received MRI results completed 08/02/2023, scanned to chart Twyla Caraballo Skein Yarn Dyer II Endocrinology AND Metabolism [place] [facility] F20 AND X20 Allergies As of [...] Status:Closed by TWYLA CARABALLO on 08/14/23 Normal [facility] CBC W Auto Differential pane l (Bld)on 07-20-2023 Basophils (Bld) [#/Vol] 0.03 10*3/uL [facility] Basophils/100 WBC (Bld) 0.3 % 0.0 - 2.0 % [facility] Eosinophils (Bld) [#/Vol] 0.00 10*3/uL [facility] Eosinophils/100 WBC (Bld) 0.0 % 0.0 - 6.0 % [facility] Erythrocyte distribution width (RBC) [Ratio] 14.5 % 11.5 - 14.5 % [facility] Hematocrit (Bld) [Volume fraction] 39.1 % 36.0 - 46.0 % [facility] Hemoglobin (Bld) [Mass/Vol] 13.5 g/dL 12.0 - 16.0 g/dL [facility] Immature granulocytes (Bld) [#/Vol] 0.03 10*3/uL [facility] Immature granulocytes/100 WBC (Bld) 0.3 % 0.0 - 0.9 % [facility] Comment on above: Immature Granulocyte Count (IG) includes promyelocytes, myelocytes and metamyelocytes but does not include bands. Percent differential counts (%) should be interpreted in the context of the absolute cell counts (cells/UL). Interpretation and review of laboratory results Abnormal [facility] Lymphocytes (Bld) [#/Vol] 0.98 10*3/uL Low [facility] Lymphocytes/100 WBC (Bld) 8.5 % 13.0 - 44.0 % [facility] MCH (RBC) [Entitic mass] 28.7 pg 26.0 - 34.0 pg [facility] MCHC (RBC) [Mass/Vol] 34.5 g/dL 32.0 - 36.0 g/dL [facility] MCV (RBC) [Entitic vol] 83 fL 80 - 100 fL [facility] Monocytes (Bld) [#/Vol] 0.13 10*3/uL [facility] Monocytes/100 WBC (Bld) 1.1 % 2.0 - 10.0 % [facility] Neutrophils (Bld) [#/Vol] 10.32 10*3/uL High [facility] Comment on above: Percent differential counts (%) should be interpreted in the context of the absolute cell counts (cells/uL). Neutrophils/100 WBC (Bld) 89.8 % 40.0 - 80.0 % [facility] Nucleated RBC/100 WBC (Bld) [Ratio] 0.0 % [facility] Platelets (Bld) [#/Vol] 290 10*3/uL [facility] RBC (Bld) [#/Vol] 4.71 10*6/uL [facility] WBC (Bld) [#/Vol] 11.5 10*3/uL [facility] Basophils (Bld) [#/Vol] 0.03 x10*3/uL Normal 0.00-0.10 [facility] Comment on above: Performed By: #### 5 7021-8 #### JIMENA Mark ([id number]) [facility] ([facility]) [address] [place] [address] 69931 Basophils/100 WBC (Bld) 0.3 % Normal 0.0-2.0 [facility] Comment on above: Performed By: #### 5 7021-8 #### JIMENA Mark ([id number]) [facility] ([facility]) [address] [place] [address] Eosinophils (Bld) [#/Vol] 0.00 x10*3/uL Normal 0.00-0.70 [facility] Comment on above: Performed By: #### 5 7021-8 #### JIMENA Mark ([id number]) [facility] ([facility]) [address] [place] [address] 36339 Eosinophils/100 WBC (Bld) 0.0 % Normal 0.0-6.0 [facility] Comment on above: Performed By: #### 5 7021-8 #### JIMENA Mark ([id number]) [facility] ([facility]) [address] [place] [address] 13970 Erythrocyte distribution width (RBC) [Ratio] 14.5 % Normal 11.5-14.5 [facility] Comment on above: Performed By: #### 5 7021-8 #### JIMENA Mark ([id number]) [facility] ([facility]) [address] [place] [address] Hematocrit (Bld) [Volume fraction] 39.1 % Normal 36.0-46.0 [facility] Comment on above: Performed By: #### 5 7021-8 #### JIMENA Mark ([id number]) [facility] ([facility]) [address] [place] [address] 52364 Hemoglobin (Bld) [Mass/Vol] 13.5 g/dL Normal 12.0-16.0 [facility] Comment on above: Performed By: #### 5 7021-8 #### JIMENA Mark ([id number]) [facility] ([facility]) [address] [place] [address] 26912 Immature granulocytes (Bld) [#/Vol] 0.03 x10*3/uL Normal 0.00-0.70 [facility] Comment on above: Performed By: #### 5 7021-8 #### JIMENA Mark ([id number]) [facility] ([facility]) [address] [place] [address] 08351 Immature granulocytes/100 WBC (Bld) 0.3 % Normal 0.0-0.9 [facility] Comment on above: Result Comment: Yanet ture Granulocyte Count (IG) includes promyelocytes, myelocytes and metamyelocytes but does not include bands. Percent differential counts (%) should be interpreted in the context of the absolute cell counts (cells/UL). Performed By: #### 5 7021-8 #### JIMENA Mark ([id number]) [facility] ([facility]) [address] [place] [address] Lymphocytes (Bld) [#/Vol] 0.98 x10*3/uL Low 1.20-4.80 [facility] Comment on above: Performed By: #### 5 7021-8 #### JIMENA Mark ([id number]) [facility] ([facility]) [address] [place] [address] 83749 Lymphocytes/100 WBC (Bld) 8.5 % Normal 13.0-44.0 [facility] Comment on above: Performed By: #### 5 7021-8 #### JIMENA Mark ([id number]) [facility] ([facility]) [address] [place] [address] MCH (RBC) [Entitic mass] 28.7 pg Normal 26.0-34.0 [facility] Comment on above: Performed By: #### 5 7021-8 #### JIMENA Mark ([id number]) [facility] ([facility]) [address] [place] [address] MCHC (RBC) [Mass/Vol] 34.5 g/dL Normal 32.0-36.0 [facility] Comment on above: Performed By: #### 5 7021-8 #### JIMENA Mark ([id number]) [facility] ([facility]) [address] [place] [address] 19498 MCV (RBC) [Entitic vol] 83 fL Normal 80-100 [facility] Comment on above: Performed By: #### 5 7021-8 #### JIMENA Mark ([id number]) [facility] ([facility]) [address] [place] [address] 40892 Monocytes (Bld) [#/Vol] 0.13 x10*3/uL Normal 0.10-1.00 [facility] Comment on above: Performed By: #### 5 7021-8 #### JIMENA Mark ([id number]) [facility] ([facility]) [address] [place] [address] Monocytes/100 WBC (Bld) 1.1 % Normal 2.0-10.0 [facility] Comment on above: Performed By: #### 5 7021-8 #### JIMENA Mark ([id number]) [facility] ([facility]) [address] [place] [address] Neutrophils (Bld) [#/Vol] 10.32 x10*3/uL High 1.20-7.70 [facility] Comment on above: Result Comment: Perc ent differential counts (%) should be interpreted in the context of the absolute cell counts (cells/uL). Performed By: #### 5 7021-8 #### JIMENA Mark ([id number]) [facility] ([facility]) [address] [place] [address] 64165 Neutrophils/100 WBC (Bld) 89.8 % Normal 40.0-80.0 [facility] Comment on above: Performed By: #### 5 7021-8 #### JIMENA Mark ([id number]) [facility] ([facility]) [address] [place] [address] 61960 Nucleated RBC/100 WBC (Bld) [Ratio] 0.0 /100 WBCs Normal 0.0-0.0 [facility] Comment on above: Performed By: #### 5 7021-8 #### JIMENA Mark ([id number]) [facility] ([facility]) [address] [place] [address] 74997 Platelets (Bld) [#/Vol] 290 x10*3/uL Normal 150-450 [facility] Comment on above: Performed By: #### 5 7021-8 #### JIMENA Mark ([id number]) [facility] ([facility]) [address] [place] [address] 48417 RBC (Bld) [#/Vol] 4.71 x10*6/uL Normal 4.00-5.20 [facility] Comment on above: Performed By: #### 5 7021-8 #### JIMENA Mark ([id number]) [facility] ([facility]) [address] [place] [address] 05010 WBC (Bld) [#/Vol] 11.5 x10*3/uL High 4.4-11.3 [facility] Comment on above: Performed By: #### 5 7021-8 #### JIMENA Mark ([id number]) [facility] ([facility]) [address] [place] [address] CHEST ABDOMEN PELVIS W IV CONTRASTon 07-20-2023 CT CHEST ABDOMEN PELVIS W IV CONTRAST Interpreted By: Mag Santiago, STUDY: CT CHEST ABDOMEN PELVIS W IV CONTRAST; 07/20/2023 5:39 pm INDICATION: Signs/Symptoms:Persisten t vomiting, epigastric pain in the chest.. COMPARISON: Chest x-ray 07/20/2023. ACCESSION NUMBER(S): [id number] ORDERING CLINICIAN: ABIODUN OCHOA TECHNIQUE: Axial CT [...] Mag Santiago 07/20/2023 6:51 PM Dictation workstation: [id number] [facility] CT Chest and Abdomen and Pel [...] Mag Santiago 07/20/2023 6:51 PM Dictation workstation: [id number] [facility] Interpreted By: Mag Santiago, STUDY: CT CHEST ABDOMEN PELVIS W IV CONTRAST; 07/20/2023 5:39 pm INDICATION: Signs/Symptoms:Persisten t vomiting, epigastric pain in the chest.. COMPARISON: Chest x-ray 07/20/2023. ACCESSION NUMBER(S): [id number] ORDERING CLINICIAN: ABIODUN OCHOA TECHNIQUE: Axial CT [...] chest.. COMPARISON: Chest x-ray 07/20/2023. ACCESSION NUMBER(S): [id number] ORDERING CLINICIAN: ABIODUN OCHOA TECHNIQUE: Axial CT [...] Mag Santiago 07/20/2023 6:51 PM Dictation workstation: [id number] [facility] Work Phone: Radiology Study observation (narrative) [facility] Work Phone: CT Chest and Abdomen and Pel vis W contrast IVOrdered By: Mag Santiago on 07-20-2023 [facility] Work Phone: Choriogonadotropin.beta subu niton 07-20-2023 HCG.beta subunit Qn m[IU]/mL Normal <5 [facility] Comment on above: Order Comment: Total HCG measurement is performed using the Jade Saleem Access Immunoassay which detects intact HCG and free beta HCG subunit. This test is not indicated for use as a tumor marker. HCG testing is performed using a different test methodology at [facility] than other legacy [facility]. Direct result comparison should only be made within the same method. Performed By: #### 2 1198-7 #### JIMENA Mark ([id number]) [facility] ([facility]) [address] [id number] Comprehensive metabolic 2000 panelon 07-20-2023 Albumin BCP dye [Mass/Vol] 4.7 g/dL 3.4 - 5.0 g/dL [facility] ALP [Catalytic activity/Vol] 47 U/L 33 - 110 U/L [facility] ALT With P-5'-P [Catalytic activity/Vol] 14 U/L 7 - 45 U/L [facility] Comment on above: Patients treated wit h Sulfasalazine may generate falsely decreased results for ALT. Anion gap [Moles/Vol] 18 mmol/L 10 - 2 0 mmol/L [facility] AST With P-5'-P [Catalytic activity/Vol] 15 U/L 9 - 39 U/L [facility] Bilirubin [Mass/Vol] 0.6 mg/dL 0.0 - 1 .2 mg/dL [facility] Calcium [Mass/Vol] 9.8 mg/dL 8.6 - 10. 3 mg/dL [facility] Chloride [Moles/Vol] 105 mmol/L 98 - 10 7 mmol/L [facility] CO2 [Moles/Vol] 19 mmol/L Low 21 - 32 mmol/L [facility] Creatinine [Mass/Vol] 0.77 mg/dL 0.50 - 1.05 mg/dL [facility] eGFR - PINF [facility] Comment on above: Calculations of lesli mated GFR are performed using the 2020 CKD-EPI Study Refit equation without the race variable for the IDMS-Traceable creatinine methods. https://jasn.asnjournals.org/content//ASN.2020 075470 Glucose [Mass/Vol] 147 mg/dL High 74 - 99 mg/dL [facility] Interpretation and review of laboratory results Abnormal [facility] Potassium [Moles/Vol] 3.8 mmol/L 3.5 - 5.3 mmol/L [facility] Protein [Mass/Vol] 7.3 g/dL 6.4 - 8.2 g/dL [facility] Sodium [Moles/Vol] 138 mmol/L 136 - 145 mmol/L [facility] Urea nitrogen [Mass/Vol] 15 mg/dL 6 - 23 mg/dL [facility] Albumin BCP dye [Mass/Vol] 4.7 g/dL Normal 3.4-5.0 [facility] Comment on above: Performed By: #### 2 4323-8 #### JIMENA Mark ([id number]) [facility] ([facility]) [address] [place] [address] 34905 ALP [Catalytic activity/Vol] 47 U/L Normal 33-110 [facility] Comment on above: Performed By: #### 2 4323-8 #### JIMENA Mark ([id number]) [facility] ([facility]) [address] [place] [address] 63538 ALT With P-5'-P [Catalytic activity/Vol] 14 U/L Normal 7-45 [facility] Comment on above: Result Comment: Edel ents treated with Sulfasalazine may generate falsely decreased results for ALT. Performed By: #### 2 4323-8 #### JIMENA aMrk ([id number]) [facility] ([facility]) [address] [place] [address] 69710 Anion gap [Moles/Vol] 18 mmol/L Normal 10-20 [facility] Comment on above: Performed By: #### 2 4323-8 #### JIMENA Mark ([id number]) [facility] ([facility]) [address] [place] [address] 42109 AST With P-5'-P [Catalytic activity/Vol] 15 U/L Normal 9-39 [facility] Comment on above: Performed By: #### 2 4323-8 #### JIMENA Mark ([id number]) [facility] ([facility]) [address] [place] [address] 72755 Bilirubin [Mass/Vol] 0.6 mg/dL Normal 0.0-1.2 [facility] Comment on above: Performed By: #### 2 4323-8 #### JIMENA Mark ([id number]) [facility] ([facility]) [address] [place] [address] 65368 Calcium [Mass/Vol] 9.8 mg/dL Normal 8.6-10.3 [facility] Comment on above: Performed By: #### 2 4323-8 #### JIMENA Mark ([id number]) [facility] ([facility]) [address] [place] [address] 95488 Chloride [Moles/Vol] 105 mmol/L Normal 98-107 [facility] Comment on above: Performed By: #### 2 4323-8 #### JIMENA Mark ([id number]) [facility] ([facility]) [address] [place] [address] 63826 CO2 [Moles/Vol] 19 mmol/L Low 21-32 [facility] Comment on above: Performed By: #### 2 4323-8 #### JIMENA Mark ([id number]) [facility] ([facility]) [address] [place] [address] 56964 Creatinine [Mass/Vol] 0.77 mg/dL Normal 0.50-1.05 [facility] Comment on above: Performed By: #### 2 4323-8 #### JIMENA Mark ([id number]) [facility] ([facility]) [address] [place] [address] 61246 GFR/1.73 sq M.predicted MDRD (S/P/Bld) [Vol rate/Area] mL/min/{1.73_m2} Normal >60 [facility] Comment on above: Result Comment: Calc ulations of estimated GFR are performed using the 2020 CKD-EPI Study Refit equation without the race variable for the IDMS-Traceable creatinine methods. https://jasn.asnjournals.org/content/early//ASN.2020 059996 Performed By: #### 2 4323-8 #### JIMENA Mark ([id number]) [facility] ([facility]) [address] [place] [address] 21499 Glucose [Mass/Vol] 147 mg/dL High 74-99 [facility] Comment on above: Performed By: #### 2 4323-8 #### JIMENA Mark ([id number]) [facility] ([facility]) [address] [place] [address] 35344 Potassium [Moles/Vol] 3.8 mmol/L Normal 3.5-5.3 [facility] Comment on above: Performed By: #### 2 4323-8 #### JIMENA Mark ([id number]) [facility] ([facility]) [address] [place] [address] Protein [Mass/Vol] 7.3 g/dL Normal 6.4-8.2 [facility] Comment on above: Performed By: #### 2 4323-8 #### JIMENA Mark ([id number]) [facility] ([facility]) [address] [place] [address] 81844 Sodium [Moles/Vol] 138 mmol/L Normal 136-145 [facility] Comment on above: Performed By: #### 2 4323-8 #### JIMENA Mark ([id number]) [facility] ([facility]) [address] [place] [address] 97034 Urea nitrogen [Mass/Vol] 15 mg/dL Normal 6-23 [facility] Comment on above: Performed By: #### 2 4323-8 #### JIMENA Mark ([id number]) [facility] [place]) [address] [place] [address]134 DRUG SCREEN,URINEon 07-20-19 24 Amphetamines Screen Ql (U) Negative Normal Presumptive Negative [facility] Comment on above: Order Comment: Drug screen [...] By: #### Kobi RUG3 #### JIMENA Mark ([id number]) [facility] ([facility]) [address] [place] [address] Barbiturates Screen Ql (U) Negative Normal Presumptive Negative [facility] Comment on above: Order Comment: Drug screen [...] By: #### Kobi RUG3 #### JIMENA Mark ([id number]) [facility] ([facility] [address] [place] [address] Benzodiazepines Ql (U) Negative Normal Presu mptive Negative [facility] Comment on above: Order Comment: Drug screen [...] By: #### D RUG3 #### JIMENA Mark ([id number]) [facility] ([facility] [address] [place] [address] 55681 Benzoylecgonine Screen Ql (U) Negative Normal Presumptive Negative [facility] Comment on above: Order Comment: Drug screen [...] By: #### D RUG3 #### JIMENA Mark ([id number]) [facility] ([facility] [address] [place] [address] Cannabinoids Screen Ql (U) Positive Abnormal Presumptive Negative [facility] Comment on above: Order Comment: Drug screen [...] By: #### D RUG3 #### JIMENA Mark ([id number]) [facility] ([facility] [address] [place] [address] fentaNYL+Norfentanyl Screen Ql (U) Negative Normal Presumptive Negative [facility] Comment on above: Order Comment: Drug screen [...] By: #### D RUG3 #### JIMENA Mark ([id number]) [facility] ([facility] [address] [place] [address] Methadone Screen Ql (U) Negative Normal Pres umptive Negative [facility] Comment on above: Order Comment: Drug screen [...] CUTO FF LEVEL: 150 NG/ML The metabolite L-bvopi-ntzkpyodrznezh (LAAM) is not detected by this method in concentrations that would be found in the urine of patients on LAAM therapy. Performed By: #### D RUG3 #### JIMENA Mark ([id number]) [facility] ([facility]) [address] [place] [address] Opiates Screen Ql (U) Negative Normal Presum ptive Negative [facility] Comment on above: Order Comment: Drug screen [...] By: #### Kobi BRIONES3 #### JIMENA Mark ([id number]) [facility] ([facility]) [address] [place] [address] oxyCODONE+oxyMORphone Screen Ql (U) Negative Normal Presumptive Negative [facility] Comment on above: Order Comment: Drug screen [...] By: #### Kobi RUG3 #### JIMENA Mark ([id number]) [facility] ([facility]) [address] [place] [address]84 Phencyclidine Ql (U) Negative Normal Presump tive Negative [facility] Comment on above: Order Comment: Drug screen [...] By: #### D ANSELMO3 #### JIMENA Mark ([id number]) [facility] ([facility]) [address] [place] [address] 28098 Drug Screen, Urineon 024 Amphetamines Screen Ql (U) Negative Presumptive Negative [facility] Comment on above: CUTOFF LEVEL: 500 NG /ML Cross-reactivity has been reported with high concentrations of the following drugs: buproprion, chloroquine, chlorpromazine, ephedrine, mephentermine, fenfluramine, phentermine, phenylpropanolamine, pseudoephedrine, and propranolol. Barbiturates Screen Ql (U) Negative Presumptive Negative [facility] Comment on above: CUTOFF LEVEL: 200 NG /ML Benzodiazepines Ql (U) Negative Presu mptive Negative [facility] Comment on above: CUTOFF LEVEL: 200 NG /ML Benzoylecgonine Screen Ql (U) Negative Presumptive Negative [facility] Comment on above: CUTOFF LEVEL: 150 NG /ML Cannabinoids Screen Ql (U) Positive Abnormal Presumptive Negative [facility] Comment on above: CUTOFF LEVEL: 50 NG/ ML fentaNYL+Norfentanyl Screen Ql (U) Negative Presumptive Negative [facility] Comment on above: CUTOFF LEVEL: 5 NG/M L Interpretation and review of laboratory results Abnormal [facility] Methadone Screen Ql (U) Negative Pres umptive Negative [facility] Comment on above: CUTOFF LEVEL: 150 NG /ML The metabolite S-dguak-sawmuafoihalow (LAAM) is not detected by this method in concentrations that would be found in the urine of patients on LAAM therapy. Opiates Screen Ql (U) Negative Presum ptive Negative [facility] Comment on above: CUTOFF LEVEL: 300 NG /ML The opiate screen does not detect fentanyl, meperidine, or tramadol. Oxycodone is not consistently detected (refer to Oxycodone Screen, Urine result). oxyCODONE+oxyMORphone Screen Ql (U) Negative Presumptive Negative [facility] Comment on above: CUTOFF LEVEL: 100 NG /ML This test will accurately detect both oxycodone and oxymorphone. Phencyclidine Ql (U) Negative Presump tive Negative [facility] Comment on above: CUTOFF LEVEL: 25 [...] be directed to the laboratory medical directors. [facility] ECG 12-LEADon 07-20-2023 ECG 12-LEAD Ventricular Rate 68 Atrial Rate 67 P-R Interval 110 QRS Duration 126 Q-T Interval 419 QTC Calculation(Bazett) 446 P Kearney 82 R Kearney 77 T Kearney 67 QRS Count 11 Q Onset 249 T Offset 459 QTC Fredericia 437 Diagnosis Sinus rhythm Borderline short AK interval Nonspecific intraventricular conduction delay ST elev, probable normal early repol pattern See ED provider note for full interpretation and clinical correlation Confirmed by Lynsey Luna ([id number]) on 07/28/2023 12:23:14 PM Normal [facility] HCG.beta subunit Qnon 2023 Interpretation and review of laboratory results Normal [facility] Total HCG measuremen t is performed using the Jade Saleem Access Immunoassay which detects intact HCG and free beta HCG subunit. This test is not indicated for use as a tumor marker. HCG testing is performed using a different test methodology at [facility] than other legacy [facility]. Direct result comparison should only be made within the same method. [facility] Human Chorionic Gonadotropin , Serum Quantitativeon 07-20-2023 HCG.beta subunit Qn NINF [facility] Lactateon 07-20-2023 Lactate [Moles/Vol] 1.4 mmol/L 0.4 - 2. 0 mmol/L [facility] Lactate [Moles/Vol] 1.4 mmol/L Normal 0.4-2.0 [facility] Comment on above: Order Comment: Venip uncture immediately after or during the administration of Metamizole may lead to falsely low results. Testing should be performed immediately prior to Metamizole dosing. Performed By: #### 2 524-7 #### JIMENA Mark ([id number]) [facility] ([facility]) [address] [place] [address] 06762 Lactate [Moles/Vol] 2.2 mmol/L High 0.4 - 2. 0 mmol/L [facility] Lactate [Moles/Vol] 2.2 mmol/L High 0.4-2.0 [facility] Comment on above: Order Comment: Venip uncture immediately after or during the administration of Metamizole may lead to falsely low results. Testing should be performed immediately prior to Metamizole dosing. Performed By: #### 2 524-7 #### JIMENA Mark ([id number]) [facility] ([facility]) [address] [place] [address] 57009 Lactate [Moles/Vol]on 2023 Interpretation and review of laboratory results Normal [facility] Venipuncture immedia tely after or during the administration of Metamizole may lead to falsely low results. Testing should be performed immediately prior to Metamizole dosing. [facility] Interpretation and review of laboratory results Abnormal [facility] Venipuncture immedia tely after or during the administration of Metamizole may lead to falsely low results. Testing should be performed immediately prior to Metamizole dosing. [facility] Lipaseon 07-20-2023 Lipase [Catalytic activity/Vol] 10 U/L U/L [facility] Lipase [Catalytic activity/V ol]on 07-20-2023 Interpretation and review of laboratory results Normal [facility] Venipuncture immedia tely after or during the administration of Metamizole may lead to falsely low results. Testing should be performed immediately prior to Metamizole dosing. [facility] Triacylglycerol lipaseon Lipase [Catalytic activity/Vol] 10 U/L Normal [facility] Comment on above: Order Comment: Venip uncture immediately after or during the administration of Metamizole may lead to falsely low results. Testing should be performed immediately prior to Metamizole dosing. Performed By: #### 3 040-3 #### JIMENA Mark ([id number]) [facility] ([facility]) [address] [place] [address] Tropinin I.cardiac panel Hig h sensitivity methodon 07-20-2023 Interpretation and review of laboratory results Normal [facility] Less than 99th percentile of normal [...] performed using a different testing methodology at [facility] than at other [facility]. Direct result comparisons should only be made within the same method. [facility] Troponin I, High Sensitivity on 07-20-2023 Tropinin I.cardiac panel High sensitivity method ng/L 0 - 13 ng/L [facility] Troponin I.cardiac panelon 0 07-20-2023 Tropinin I.cardiac panel High sensitivity method <3 Normal 0-13 [facility] Comment on above: Order Comment: Venip uncture immediately after or during the administration of Metamizole may lead to falsely low results. Testing should be performed immediately prior to Metamizole dosing. Performed By: #### 2 524-7 #### JIMENA Mark ([id number]) [facility] ([facility]) [address] [place] [address] Urinalysis complete W Reflex Culture panel (U)on 07-20-2023 Appearance (U) Hazy Abnormal Clear [facility] Bilirubin (U) [Mass/Vol] Negative NEGATIVE [facility] Color (U) Yellow Straw, Yellow [facility] Epithelial cells.squamous Auto (Urine sed) [#/Area] 1-9 (SPARSE) Reference range not established. /HPF [facility] Glucose Auto test strip (U) [Mass/Vol] Negative NEGATIVE mg/dL [facility] Interpretation and review of laboratory results Abnormal [facility] Ketones (U) [Mass/Vol] 80 (2+) Abnormal NEGAT JAMES mg/dL [facility] Leukocyte esterase Auto test strip Ql (U) Negative NEGATIVE [facility] Mucus Auto (Urine sed) [#/Area] 4+ Reference range not established. /LPF [facility] Nitrite Auto test strip Ql (U) Negative NEGATIVE [facility] pH (U) 9.0 [pH] Abnormal 5.0, 5.5, 6.0, 6.5, 7.0, 7.5, 8.0 [facility] Protein (U) [Mass/Vol] >=500 (3+) Abnormal NEGAT JAMES mg/dL [facility] RBC (U) [#/Vol] Negative NEGATIVE [facility] RBC Auto (Urine sed) [#/Area] 1-2 NONE, 1-2, 3-5 /HPF [facility] Specific gravity (U) [Rel density] 1.025 1.005 - 1.035 [facility] Urobilinogen (U) [Mass/Vol] mg/dL NINF - 2.0 mg/dL [facility] WBC Auto (Urine sed) [#/Area] 1-5 1-5, NONE /HPF [facility] Yeast.budding Computer assisted (U) [#/Area] PRESENT Abnormal NONE /HPF [facility] Appearance (U) Hazy Normal Clear [facility] Comment on above: Performed By: #### 5 8077-9 #### JIMENA Mark ([id number]) [facility] ([facility]) [address] [place] [address] 48156 Bilirubin (U) [Mass/Vol] Negative Normal NEGATIVE [facility] Comment on above: Performed By: #### 5 8077-9 #### JIMENA Mark ([id number]) [facility] ([facility]) [address] [place] [address] 77913 Color (U) Yellow Normal Straw, Yellow [facility] Comment on above: Performed By: #### 5 8077-9 #### JIMENA Mark ([id number]) [facility] ([facility]) [address] [place] [address] 77233 Epithelial cells.squamous Auto (Urine sed) [#/Area] 1-9 (SPARSE) Normal Reference range not established. [facility] Comment on above: Performed By: #### 5 8077-9 #### JIMENA Mark ([id number]) [facility] ([facility]) [address] [place] [address] 39331 Glucose Auto test strip (U) [Mass/Vol] Negative Normal NEGATIVE [facility] Comment on above: Performed By: #### 5 8077-9 #### JIMENA Mark ([id number]) [facility] ([facility]) [address] [place] [address] 10233 Ketones (U) [Mass/Vol] 80 (2+) Abnormal [facility]: Performed By: #### 5 8077-9 #### JIMENA Mark ([id number]) [facility] ([facility]) [address] [place] [address] 22891 Leukocyte esterase Auto test strip Ql (U) Negative Normal NEGATIVE [facility] Comment on above: Performed By: #### 5 8077-9 #### JIMENA Mark ([id number]) [facility] ([facility]) [address] [place] [address] 56066 Mucus Auto (Urine sed) [#/Area] 4+ /LPF Normal Reference range not established. [facility] Comment on above: Performed By: #### 5 8077-9 #### JIMENA Mark ([id number]) [facility] ([facility]) [address] [place] [address] 52353 Nitrite Auto test strip Ql (U) Negative Normal NEGATIVE [facility] Comment on above: Performed By: #### 5 8077-9 #### JIMENA Mark ([id number]) [facility] ([facility]) [address] [place] [address] 97990 pH (U) 9.0 [pH] Normal 5.0, 5.5, 6.0, 6.5, 7.0, 7.5, 8.0 [facility] Comment on above: Performed By: #### 5 8077-9 #### JIMENA Mark ([id number]) [facility] ([facility]) [address] [place] [address] 30713 Protein (U) [Mass/Vol] >=500 (3+) Normal NEGATIVE [facility] Comment on above: Performed By: #### 5 8077-9 #### JIMENA Mark ([id number]) [facility] ([facility]) [address] [place] [address] 40084 RBC (U) [#/Vol] Negative Normal NEGATIVE [facility] Comment on above: Performed By: #### 5 8077-9 #### JIMENA Mark ([id number]) [facility] ([facility]) [address] [place] [address] 58719 RBC Auto (Urine sed) [#/Area] 1-2 Normal NONE, 1-2, 3-5 [facility] Comment on above: Performed By: #### 5 8077-9 #### JIMENA Mark ([id number]) [facility] ([facility]) [address] [place] [address] Specific gravity (U) [Rel density] 1.025 Normal 1.005-1.035 [facility] Comment on above: Performed By: #### 5 8077-9 #### JIMENA Mark ([id number]) [facility] ([facility]) [address] [place] [address] Urobilinogen (U) [Mass/Vol] mg/dL Normal <2.0 [facility] Comment on above: Performed By: #### 5 8077-9 #### JIMENA Mark ([id number]) [facility] ([facility]) [address] [place] [address] WBC Auto (Urine sed) [#/Area] 1-5 Normal 1-5, NONE [facility] Comment on above: Performed By: #### 5 8077-9 #### JIMENA Mark ([id number]) [facility] ([facility]) [address] [place] [address] Yeast.budding Computer assisted (U) [#/Area] PRESENT Abnormal NONE [facility] Comment on above: Performed By: #### 5 8077-9 #### JIMENA Mark ([id number]) [facility] ([facility]) [address] [place] [address] XR CHEST 1 VIEWon 07-20-2023 XR CHEST 1 VIEW Interpreted By: Salina Hall, STUDY: XR CHEST 1 VIEW; 07/20/2023 4:05 pm INDICATION: Signs/Symptoms:cp. COMPARISON: None. ACCESSION NUMBER(S): [id number] ORDERING CLINICIAN: ABIODUN OCHOA FINDINGS: Heart is normal in size. There is no consolidation or pleural fluid. The mediastinum and bones are unremarkable. There are bilateral nipple shadows. COMPARISON OF FINDING: IMPRESSION: No acute cardiopulmonary disease. MACRO: none Signed by: Salina Stanton 07/20/2023 4:17 PM Dictation workstation: [id number] Normal [facility] XR Chest Single viewon 07-19 No acute cardiopulmo nary disease. MACRO: none Signed by: Salina Stanton 07/20/2023 4:17 PM Dictation workstation: [id number] MMODAL Interpreted By: Salina Hall, STUDY: XR CHEST 1 VIEW; 07/20/2023 4:05 pm INDICATION: Signs/Symptoms:cp. COMPARISON: None. ACCESSION NUMBER(S): [id number] ORDERING CLINICIAN: ABIODUN OCHOA FINDINGS: Heart is normal in size. There is no consolidation or pleural fluid. The mediastinum and bones are unremarkable. There are bilateral nipple shadows. COMPARISON OF FINDING: [facility] MMODAL Salina Stanton MD - 07/20/2023 Interpreted By: Salina Stanton, STUDY: XR CHEST 1 VIEW; 07/20/2023 4:05 pm INDICATION: Signs/Symptoms:cp. COMPARISON: None. ACCESSION NUMBER(S): [id number] ORDERING CLINICIAN: ABIODUN OCHOA FINDINGS: Heart is normal in size. There is no consolidation or pleural fluid. The mediastinum and bones are unremarkable. There are bilateral nipple shadows. COMPARISON OF FINDING: IMPRESSION: No acute cardiopulmonary disease. MACRO: none Signed by: Salina Stanton 07/20/2023 4:17 PM Dictation workstation: [id number] [facility] Work Phone: Radiology Study observation (narrative) [facility] Work Phone: XR Chest Single viewOrdered By: Salina Stanton on 07-20-2023 [facility] Work Phone: Cytology Cervical or vaginal smear or scraping studyon 03-19-2023 [facility] XR HYSTEROSALPINGOGRAMon XR HYSTEROSALPINGOGRAM * * *Final [...] nondilated tubes. No spillage. IMPRESSION: Please see EDITOR SOUND report for assessment of real-time findings. Etcher Apprentice Photoengraving: ANTONIETA Transcribe Date/Time: Jan 20 2021 1:37P Dictated by : DAYANNA LEROY MD This examination was interpreted and the report reviewed and electronically signed by: DAYANNA LEROY MD on Jan 20 2021 1:45PM EST [id number] Normal [facility] URon 03-22-2020 , QUAL Negative Normal NEGATIVE [facility] Comment on above: Performed By: #### P REGU #### [facility] [address] [id number] Juany Mccarthy [facility]02 Covid-19 PCR DETECTED Abnormal NOT DETECTED [facility] Comment on above: Result Comment: This test is not yet approved or cleared by the [place] FDA. When there are no FDA-approved or cleared tests available, and other criteria are met, FDA can make tests available under an emergency access mechanism called an Emergency Use Authorization (EUA). The EUA for this test is supported by the [place] of Health and Human Service's (HHS's) declaration [...] used). Performed By: #### C VDTB #### [facility] [address] [address] Juany Mccarthy EUA Statement SEE BELOW Normal [facility] Comment on above: Result Comment: This test is not yet approved or cleared by the [place] FDA. When there are no FDA-approved or cleared tests available, and other criteria are met, FDA can make tests available under an emergency access mechanism called an Emergency Use Authorization (EUA). The EUA for this test is supported by the Nurse Prn of Health and Human Service?s (HHS?s) declaration [...] SARS-CoV-2. Performed By: #### C [facility] #### [facility] [address] [place] [address] Juany Mccarthy Vital Signs Date Time Vital Sign Value Performing Clinician Facility 12-03-2023 08:43-0400 Body height 167.6 cm [employer] Work Phone: [facility] 12-03-2023 08:43-0400 Body mass index (BMI) [Ratio] 17.59 kg/m2 [employer] Work Phone: [facility] 12-03-2023 08:43-0400 Body weight 49.44 kg [employer] Work Phone: [facility] 12-03-2023 08:43-0400 Diastolic blood pressure 68 mm[Hg] [employer] Work Phone: [facility] 12-03-2023 08:43-0400 Systolic blood pressure 102 mm[Hg] [employer] Work Phone: [facility] 10-15-2023 10:05-0400 Blood Pressure Location [employer] [facility] 10-15-2023 10:05-0400 Diastolic blood pressure 74 mm[Hg] [employer] [facility] 10-15-2023 10:05-0400 Heart rate 66 /min [employer] [facility] 10-15-2023 10:05-0400 Mean blood pressure 87 mm[Hg] [employer] [facility] 10-15-2023 10:05-0400 Respiratory rate 19 /min Mohamad Mouchli [facility] 10-15-2023 10:05-0400 SaO2% (BldA) [Mass fraction] 97 % Mohamad Mouchli [facility] 10-15-2023 10:05-0400 Systolic blood pressure 112 mm[Hg] Mohamad Mouchli [facility] 10-15-2023 09:55-0400 Blood Pressure Location Mohamad Mouchli [facility] 10-15-2023 09:55-0400 Diastolic blood pressure 57 mm[Hg] Mohamad Mouchli [facility] 10-15-2023 09:55-0400 Heart rate 57 /min Mohamad Mouchli [facility] 10-15-2023 09:55-0400 Mean blood pressure 71 mm[Hg] Mohamad Mouchli [facility] 10-15-2023 09:55-0400 Respiratory rate 19 /min Mohamad Mouchli [facility] 10-15-2023 09:55-0400 SaO2% (BldA) [Mass fraction] 100 % Mohamad Mouchli [facility] 10-15-2023 09:55-0400 Systolic blood pressure 100 mm[Hg] Mohamad Mouchli [facility] 10-15-2023 09:50-0400 Blood Pressure Location Mohamad Mouchli [facility] 10-15-2023 09:50-0400 Diastolic blood pressure 73 mm[Hg] Mohamad Mouchli [facility] 10-15-2023 09:50-0400 Heart rate 90 /min Mohamad Mouchli [facility] 10-15-2023 09:50-0400 Mean blood pressure 89 mm[Hg] Mohamad Mouchli [facility] 10-15-2023 09:50-0400 Respiratory rate 13 /min Mohamad Mouchli [facility] 10-15-2023 09:50-0400 SaO2% (BldA) [Mass fraction] 100 % Mohamad Mouchli [facility] 10-15-2023 09:50-0400 Systolic blood pressure 122 mm[Hg] Mohamad Mouchli [facility] 10-15-2023 09:41-0400 Body temperature 98.06 [degF] Mohamad Mouchli [facility] 10-15-2023 09:30-0400 Respiratory rate 10 /min Mohamad Mouchli [facility] 10-15-2023 09:25-0400 Respiratory rate 10 /min Mohamad Mouchli [facility] 10-15-2023 09:24-0400 Respiratory rate 10 /min Mohamad Mouchli [facility] 10-15-2023 07:13-0400 Body temperature 98.42 [degF] Mohamad Mouchli [facility] 09-13-2023 14:52-0400 Blood Pressure Location Mohamad Mouchli [facility] 09-13-2023 14:52-0400 Diastolic blood pressure 82 mm[Hg] Mohamad Mouchli [facility] 09-13-2023 14:52-0400 Heart rate 78 /min Jeromed Clifforduchli [facility] 09-13-2023 14:52-0400 Respiratory rate 16 /min Jeromed Joseli [facility] 09-13-2023 14:52-0400 Systolic blood pressure 110 mm[Hg] Jeromed Joseli [facility] 07-20-2023 18:58-0400 Body temperature 98.49 [degF] Gwen Danielson MD Work Phone: [facility] 07-20-2023 18:58-0400 Diastolic blood pressure 83 mm[Hg] Gwen Danielson MD Work Phone: [facility] 07-20-2023 18:58-0400 Heart rate 52 /min Gwen Danielson MD Work Phone: [facility] 07-20-2023 18:58-0400 Respiratory rate 18 /min Gwen Danielson MD Work Phone: [facility] 07-20-2023 18:58-0400 SaO2% (BldA) [Mass fraction] 98 % Gwen Danielson MD Work Phone: [facility] 07-20-2023 18:58-0400 Systolic blood pressure 135 mm[Hg] Gwen Danielson MD Work Phone: [facility] 07-20-2023 13:40-0400 Body height 167.6 cm Gwen Danielson MD Work Phone: [facility] 07-20-2023 13:40-0400 Body mass index (BMI) [Ratio] 19.05 kg/m2 Gwen Danielson MD Work Phone: [facility] 07-20-2023 13:40-0400 Body weight 53.52 kg Gwen Danielson MD Work Phone: [facility] Encounters Encounter Date Encounter Type Care Provider Facility Start: 04-16-2024 End: 04-16-2024 Clinisync Result Encounter Generic External Data Provider [facility] Unsolicited Start: 04-16-2024 End: 04-16-2024 Clinisync Result Encounter Generic External Data Provider [facility] External [facility] Unsolicited Start: 04-14-2024 End: 04-14-2024 ambulatory CAROLYNE COLLAZO Not Available Start: 04-14-2024 End: 04-14-2024 Clinisync Result Encounter Generic External Data Provider [facility] External [facility] Unsolicited Start: 04-14-2024 End: 04-14-2024 Clinisync Result Encounter Generic External Data Provider [facility] Unsolicited Start: 04-08-2024 End: 04-08-2024 ambulatory MD JADE LEDBETTER [facility] Start: 04-08-2024 End: 04-08-2024 Patient encounter procedure JADE LEDBETTER [facility] Start: 04-08-2024 End: 04-08-2024 Clinisync Result [...] 02-18-2024 End: 02-18-2024 ambulatory Carolyne Collazo [facility] Start: 02-18-2024 End: 02-18-2024 Patient encounter procedure Carolyne Collazo [facility] Start: 02-18-2024 End: 02-18-2024 Clinisync Result [...] 12-03-2023 Office outpatient visit 15 minutes Uriel Palomareso DO Work Phone: [facility] Comment on above: Fallopian tube disor rose marie (Primary Dx) Start: 11-08-2023 End: 11-10-2023 Clinisync Result Encounter Uriel Palomareso DO Work Phone: [facility] Unsolicited Start: 11-08-2023 End: 11-10-2023 Clinisync Result Encounter Uriel Palomareso DO Work Phone: [facility] Unsolicited Start: 10-15-2023 End: 10-15-2023 ambulatory Alex Knutson Facility[facility] Start: 10-15-2023 End: 10-15-2023 Patient encounter procedure Alex Knutson [facility] Start: 09-13-2023 End: 09-13-2023 ambulatory Alex Knutson Facility:[facility] Start: 09-13-2023 End: 09-13-2023 Patient encounter procedure Alex Knutson [facility] Start: 2023 ambulatory Alex Knutson Facilit y:[facility] Start: 08-23-2023 End: 08-23-2023 ambulatory CAROLYNE COLLAZO Not Available Start: 08-14-2023 Telephone encounter Karina Hand MD Work Phone: Endocrinology Comment on above: Results Start: 07-26-2023 End: 07-26-2023 ambulatory CAROLYNE COLLAZO Not Available Start: 07-20-2023 End: 07-20-2023 Emergency department patient visit Gwen Danielson MD Work Phone: [facility] Emergency Medicine Comment on above: Nausea and vomiting, unspecified vomiting type (Primary Dx); Gastritis, presence of bleeding unspecified, unspecified chronicity, unspecified gastritis type Start: 06-13-2023 End: 06-13-2023 [facility] Karina Vincent MD Work Phone: Endocrinology Comment on above: Prolactinoma (HCC) ( Primary Dx); 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HCC); Elevated prolactin level Start: 05-24-2023 End: 05-24-2023 ambulatory CAROLYNE COLLAZO Not Available Start: 03-19-2023 Patient encounter procedure Uriel Halina DO Work Phone: [facility] Start: 03-22-2020 End: 03-22-2020 Patient encounter procedure YASMIN MARTINEZ Facility:[facility] Start: 03-03-2020 [facility] Start: 02-25-2020 Encounter for other [facility]procedural examination [facility] Start: 02-23-2020 End: 02-23-2020 Patient encounter procedure YASMIN MARTINEZ Facility:[facility] Start: 02-20-2020 End: 02-20-2020 Patient encounter procedure YASMIN MARTINEZ Facility:[facility] Start: 02-16-2020 End: 02-17-2020 Patient encounter procedure YASMIN MARTINEZ Facility:[facility] Encounter for other preprocedural examination [facility] Encounter for preprocedural laboratory examination YASMIN MARTINEZ [facility] Procedures Date Procedure Procedure Detail Performing Clinician Start: 04-16-2024 US PELVIS TRANSVAGINAL Generic External Data Provider Start: 04-14-2024 US PELVIS TRANSVAGINAL Generic External Data Provider Start: 04-08-2024 US PELVIS TRANSVAGINAL Generic External Data Provider Start: 03-14-2024 MLR HEMOGLOBIN A1C Generic External Data Provider Start: 02-18-2024 [facility] CBC W/ AUTO DIFF Carolyne Collazo MD Work Phone: Start: 02-13-2024 ALL THYROID STIM HORMONE Generic Externa l Data Provider Start: 02-13-2024 [facility] PREG QUANT HCG Generic External Data Provider Start: 12-24-2023 [facility] PREG QUANT HCG Uriel Halina DO Work Phone: Start: 11-08-2023 ALL PROGESTERONE Generic External Data Provider Start: 10-15-2023 Colonoscopy Alex Knutson Start: 10-15-2023 Esophagogastroduodenoscopy Jeromekobi Jose hilario Start: 07-20-2023 CT CHEST ABDOMEN PELVIS W [...] Serum or Plasma GWEN LOWE Start: 07-20-2023 Lipase [Enzymatic activity/volume] in Serum or Plasma GWEN LOWE Start: 07-20-2023 TROPONIN I, HIGH SENSITIVITY GWEN LOWE Start: 07-20-2023 ECG 12-LEAD GWEN LOWE Start: 07-20-2023 INSERT PERIPHERAL IV GWEN LOWE Start: 07-20-2023 Assay of lactate Abiodun [...] 2) Zoste r Vaccines (1 of 2) [facility] Start: 09-24-2024 End: 09-24-2024 Patient encounter procedure 09/24/2024 3:00 PM EDT Office Visit [facility] [address] [place] [address] Uriel Meade, DO [address] [place], [place] [id number] [facility] Start: 03-26-2024 End: 03-26-2024 Patient encounter procedure 03/26/2024 1:00 PM EST Office Visit [facility] [address] [place] [address] Uriel Meade, DO [address], [place] [id number] [facility] Start: 03-24-2024 End: 03-24-2024 Patient encounter procedure 03/24/2024 4:00 PM EST Office Visit [facility] [address] [place] [address] Uriel Meade, DO [address], [place] [id number] [facility] Start: 02-15-2024 End: 02-15-2024 Telemedicine consultation with patient 02/15/2024 10:00 AM EST Telemedicine [facility] [address] [place] [address] Carol Magaña PA [address] [place] [address] [facility] Start: 11-22-2023 End: 11-22-2023 Patient encounter procedure 11/22/2023 4:00 PM EDT Office Visit [facility] [address] [place] [id number] Carolyne Collazo MD [address] [place] [address] [facility] Start: 11-04-2023 Influenza vaccination C [facility] Start: 07-11-2023 End: 10-10-2023 Corticotropin [Mass/volume] in Plasma ACTH BLD Lab Routine 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HCC) Expected: 07/11/2023, Expires: 10/10/2023 [facility] Comment on above: Expected: 07/11/2023 , Expires: 10/10/2023 Start: 07-11-2023 End: 10-10-2023 Cortisol [Mass/volume] in Serum or Plasma CORTISOL, SERUM Lab Routine 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HCC) Expected: 07/11/2023, Expires: 10/10/2023 [facility] Comment on above: Expected: 07/11/2023 , Expires: 10/10/2023 Start: 07-11-2023 End: 10-10-2023 Estradiol (E2) [Mass/volume] in Serum or Plasma ESTRADIOL-17B BLD Lab Routine 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HCC) Expected: 07/11/2023, Expires: 10/10/2023 [facility] Comment on above: Expected: 07/11/2023 , Expires: 10/10/2023 Start: 07-11-2023 End: 10-10-2023 Follitropin [Units/volume] in Serum or Plasma FOLLICLE STIMULATING HORMONE Lab Routine 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[facility]) Expected: 07/11/2023, Expires: 10/10/2023 [facility] Comment on above: Expected: 07/11/2023 , Expires: 10/10/2023 Start: 07-11-2023 End: 10-10-2023 INSULIN LIK GR FAC I INSULIN LIK GR FAC I Lab Routine 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[facility]) Expected: 07/11/2023, Expires: 10/10/2023 [facility] Comment on above: Expected: 07/11/2023 , Expires: 10/10/2023 Start: 07-11-2023 End: 10-10-2023 Lutropin [Units/volume] in Serum or Plasma LUTEINIZING HORMONE Lab Routine 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[facility]) Expected: 07/11/2023, Expires: 10/10/2023 [facility] Comment on above: Expected: 07/11/2023 , Expires: 10/10/2023 Start: 07-11-2023 End: 08-09-2024 MR Pituitary and Sella turcica WO and W contrast IV MRI PITUITARY WO/W IVCON Radiology Routine 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[facility]) Expected: 07/11/2023, Expires: 08/09/2024 [facility] Work Phone: Comment on above: Expected: 07/11/2023 , Expires: 08/09/2024 Start: 07-11-2023 End: 10-10-2023 Prolactin [Mass/volume] in Serum or Plasma PROLACTIN Lab Routine 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[facility]) Expected: 07/11/2023, Expires: 10/10/2023 [facility] Comment on above: Expected: 07/11/2023 , Expires: 10/10/2023 Start: 07-11-2023 End: 10-10-2023 Somatostatin [Mass/volume] in Plasma GROWTH HORMONE Lab Routine 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[facility]) Expected: 07/11/2023, Expires: 10/10/2023 [facility] Comment on above: Expected: 07/11/2023 , Expires: 10/10/2023 Start: 07-11-2023 End: 10-10-2023 Thyrotropin [Units/volume] in Serum or Plasma THYROID STIMULATING HORMONE Lab Routine 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[facility]) Expected: 07/11/2023, Expires: 10/10/2023 [facility] Comment on above: Expected: 07/11/2023 , Expires: 10/10/2023 Start: 07-11-2023 End: 10-10-2023 Thyroxine (T4) free [Mass/volume] in Serum or Plasma T4 FREE/FREE THYROXINE Lab Routine 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HCC) Expected: 07/11/2023, Expires: 10/10/2023 [facility] Comment on above: Expected: 07/11/2023 , Expires: 10/10/2023 Start: 03-05-2023 Behavioral Health Screening Behavioral Health Screening [facility] Start: 11-03-2022 Covid-19 Vaccine () Covid-19 Vaccine () [facility] Start: 05-29-2018 DTaP/Tdap/Td Vaccine s (3 - Td or Tdap) DTaP/Tdap/Td Vaccines (3 - Td or Tdap) [facility] Start: 05-29-2018 Urine microalbumin profile DTaP,Tdap,Td Vaccine (3 - Td or Tdap) [facility] Start: 08-30-2015 Screening for malign ant neoplasm of cervix [facility] Start: 07-13-2014 Hepatitis B Vaccine (3 of 3 - 19+ 3-dose series) Hepatitis B Vaccine (3 of 3 - 19+ 3-dose series) [facility] Start: 07-13-2014 Hepatitis B Vaccines (3 of 3 - 19+ 3-dose series) Hepatitis B Vaccines (3 of 3 - 19+ 3-dose series) [facility] Start: 05-12-2014 Hepatitis A Vaccines (2 of 2 - 2-dose series) Hepatitis A Vaccines (2 of 2 - 2-dose series) [facility] Start: 2012 Hepatitis C screening Hepatitis C Sc reening [facility] Start: 2012 HIV screening HIV Screening [facility] Start: 05-18-2010 Varicella vaccination Varicell a Vaccines (2 of 2 - 13+ 2-dose series) [facility] Start: 2000 Pneumococcal Vaccine : Pediatrics (0 to 5 Years) and At-Risk Patients (6 to 64 Years) (1 of 2 - PCV) Pneumococcal Vaccine: Pediatrics (0 to 5 Years) and At-Risk Patients (6 to 64 Years) (1 of 2 - PCV) [facility] Start: 07-06-1999 IPV Vaccines (2 of 3 - 4-dose series) IPV Vaccines (2 of 3 - 4-dose series) [facility] Start: 1994 HIV screening HIV Screening [facility] Start: 1994 Lipid panel Lipid Panel [facility] Start: 1994 Yearly Adult Physical Yearly Adult P hysical [facility] ECG 12 lead ECG 12 lead ECG STAT 07/20/2023 2:57 PM EDT [facility] Work Phone: End: 07-20-2023 Extra Urine Doran Tube [facility] Work Phone: Comment on above: Once for 1 Occurrenc es starting 07/20/2023 until 07/20/2023 End: 07-20-2023 Urinalysis complete W Reflex Culture panel - Urine [facility] Work Phone: Comment on above: Once (Lab) for 1 Occ urrences starting 07/20/2023 until 07/20/2023 Immunizations Immunization Date Immunization Notes Care Provider Felicitas chase 12-06-2015 influenza, injectabl e, quadrivalent, preservative free Uriel Meade DO Work Phone: [facility] 12-06-2015 influenza virus vacc ine, unspecified formulation Karina Vincent MD Work Phone: [facility] 05-18-2014 hepatitis B vaccine, adult dosage Alex Knutson [facility] 03-30-2014 hepatitis B vaccine, adult dosage Alex Knutson [facility] 11-12-2013 hepatitis A vaccine, pediatric/adolescent dosage, 2 dose schedule Uriel Meade DO Work Phone: [facility] 11-12-2013 hepatitis A vaccine, unspecified formulation Alex Knutson [facility] 11-12-2013 hepatitis B vaccine, pediatric or pediatric/adolescent dosage Mohamad Mouchli [facility] 11-12-2013 hepatitis A and hepatitis B vaccine Gwen Danielson MD Work Phone: [facility] Work Phone: 12-31-2012 influenza virus vacc ine, whole virus Uriel Palomareso DO Work Phone: [facility] 12-31-2012 influenza, whole Mohamad Rosa chli [facility] 12-14-2012 measles, mumps and rubella virus vaccine Carolyne Collazo [facility] Comment on above: Reason for Medicatio n: Other (see comment) 04-20-2010 hepatitis A vaccine, pediatric/adolescent dosage, 2 dose schedule Uriel Meade DO Work Phone: [facility] 04-20-2010 hepatitis A vaccine, unspecified formulation Mohjyotid Mohelena [facility] 04-20-2010 varicella virus vaccine Jeovanny Danielson MD Work Phone: [facility] 05-29-2008 meningococcal ACWY vaccine, unspecified formulation Alex Knutson [facility] 05-29-2008 meningococcal polysaccharide (groups A, C, Y and W-135) diphtheria toxoid conjugate vaccine (MCV4P) Uriel Halina DO Work Phone: [facility] 05-29-2008 tetanus toxoid, redu bridget diphtheria toxoid, and acellular pertussis vaccine, adsorbed Mohamad Mouchli [facility] 12-13-2006 HPV, unspecified formulation Mohjuwan Mouchli [facility] 12-13-2006 human papilloma viru s vaccine, quadrivalent Uriel Halina DO Work Phone: [facility] 08-13-2006 HPV, unspecified formulation Mohamad Mouchli [facility] 08-13-2006 human papilloma viru s vaccine, quadrivalent Uriel Halina DO Work Phone: [facility] 06-13-2006 HPV, unspecified formulation Mohamad Mouchli [facility] 06-13-2006 human papilloma viru s vaccine, quadrivalent Uriel Halina DO Work Phone: [facility] 06-08-1999 diphtheria, tetanus toxoids and acellular pertussis vaccine, unspecified formulation Uriel Halina DO Work Phone: [facility] 06-08-1999 DTaP, unspecified formulation Mohamad Mouchli [facility] 06-08-1999 measles, mumps and rubella virus vaccine Mohamad Mouchli [facility] 06-08-1999 poliovirus vaccine, inactivated Uriel Halina DO Work Phone: [facility] 06-08-1999 poliovirus vaccine, unspecified formulation Gwen Danielson MD Work Phone: [facility] Payers Date Payer Category Payer Unknown [id number] 2019 [facility] [id number] 2019 Unknown [id number] 1994 Unknown [id number] 9.2.593 1994 Unknown [id number] 9.2.593 1994 Unknown [id number] 9.2.593 1994 Unknown [id number] 9.2.593 1994 Unknown [id number] 9.2.1243 1994 Unknown [id number] 9.2.727 1994 Unknown [id number] 9.2.727 1994 Unknown [id number] 9.2.727 1994 Unknown [id number] 9.2.727 1994 Unknown [id number] [id number] 9.2.727 1994 Unknown [id number] 9.2.1259 1994 Unknown [id number] 9.2.1259 1994 Unknown [id number] 9.2.1259 1994 Unknown [id number] 9.2.1259 1994 Unknown [id number] 9.2.1259 1994 Unknown [id number] 9.2.1259 1959 Unknown [id number] 1959 Unknown [id number] 1959 Unknown [id number] Social History Date Type Detail [facility] Start: 06-13-2023 End: 02-15-2024 History of Social function [facility] Start: 06-13-2023 End: 02-15-2024 Area Deprivation Index [facility] National Score (1-10 0), lower number is lower risk 85 [facility] Start: 1994 Sex Assigned At Not on file [facility] Start: 07-10-2023 End: 07-20-2023 Exposure to SARS-CoV-2 (event) Not sure [facility] Work Phone: Start: 09-06-2022 End: 09-13-2023 Tobacco smoking status Never smoked tobacco (finding) [facility] Start: 12-03-2023 End: 04-14-2024 Alcoholic beverage intake Lifetime non-drinker (finding) [facility] Start: 09-06-2022 Alcohol Comment caffeine: none [facility] Do you belong to any clubs or organizations such as nondenominational groups, unions, fraternal or athletic groups, or [...] Assessment Result Facility 10-15-2023 Functional Status N/A [facility] 09-13-2023 Functional Status N/A [facility] Clinical Notes 01-20-2021 to 03-12-2024 Akua Streeter, [employer] ATTENDANT - 03/12/2024 8:00 AM PATRICIA Bustillo - 02/18/2024 3:33 PM PATRICIA Bustillo - 02/15/2024 10:00 AM Alexander Magaña, PATRICIA - 02/15/2024 10:00 AM EST Note Date & Type Note Facility 03-12-2024 History of Present illness Narrative Reason for Appointment: Patient ID: Indu St is a 28 y.o. female who presents for No chief complaint on file. Patient presents today via telephone call for a telehealth appointment. Patients Phone #: [phone] (mobile) Current Medications: has a current medication list which includes the following prescription(s): alprazolam, breyna, cholecalciferol, coenzyme q-10, fish oil concentrate, and vitamins. Medical History: Active Ambulatory Problems Diagnosis Date Noted Bipolar 1 disorder ([facility]) 11/13/2022 Anxiety 12/21/2022 Asthma ([facility]) 12/21/2022 Attention deficit hyperactivity disorder (ADHD), combined type ([facility]) 12/21/2022 Proteinuria 08/03/2010 PTSD (post-traumatic stress disorder) ([facility]) 12/21/2022 Bipolar affective disorder, current episode hypomanic ([facility]) 12/21/2022 Well woman exam with routine gynecological exam 03/19/2023 Myalgia 02/18/2024 Resolved Ambulatory Problems Diagnosis Date Noted No Resolved Ambulatory Problems Past Medical History: Diagnosis Date Abnormal uterine bleeding (AUB) ADHD (attention deficit hyperactivity disorder) ([facility]) Amenorrhea Bilateral sacroiliitis ([facility]) Cervical cancer ([facility]) Chronic fatigue Chronic rhinitis Chronic vaginitis [...] 03/2020 [facility] DILATION AND CURETTAGE OF UTERUS 03/07/2013 [...] Uriel Meade DO documented in this encounter [facility] 02-18-2024 History of Present illness Narrative Associated Problem(s): Myalgia Dr Collazo put in lab orders and patient will go [facility] Will call with results Images from the [...] from patient for Telehealth Services. Patient Location ([place]) Patient is concerned about ongoing joint pain [...] and patient will go to [facility] Will call with results Health Maintenance Due Topic Date Due Influenza Vaccine (1) 11/04/2023 documented in this encounter [facility] 02-18-2024 Evaluation + Plan note Diagnostic Tests Pending.JESUS Individual Abs 02/18/24Rheumatoid Factor Quantitative 02/18/24 [facility] 01-16-2024 History of Present illness Narrative Reason for Appointment: Patient ID: Indu St is a 28 y.o. female who presents for Telehealth and Infertility Patient presents today via telephone call for a telehealth appointment. Patients Phone #: [phone] (mobile) Current Medications: has a current medication list which includes the following prescription(s): alprazolam and breyna. Medical History: Active Ambulatory Problems Diagnosis Date Noted Bipolar 1 disorder ([facility]) 11/13/2022 Anxiety 12/21/2022 Asthma ([facility]) 12/21/2022 Attention deficit hyperactivity disorder (ADHD), combined type ([facility]) 12/21/2022 Proteinuria 08/03/2010 PTSD (post-traumatic stress disorder) ([facility]) 12/21/2022 Bipolar affective disorder, current episode hypomanic ([facility]) 12/21/2022 Well woman exam with routine gynecological exam 03/19/2023 Resolved Ambulatory Problems Diagnosis Date Noted No Resolved Ambulatory Problems Past Medical History: Diagnosis Date Abnormal uterine bleeding (AUB) ADHD (attention deficit hyperactivity disorder) ([facility]) Amenorrhea Bilateral sacroiliitis ([facility]) Cervical cancer ([facility]) Chronic fatigue Chronic rhinitis Chronic vaginitis [...] 03/2020 lap[facility] D [facility] DILATION AND CURETTAGE OF UTERUS 03/07/2013 [...] pt has appt with IVF clinic in [place]. Pt is having weird symptoms- anal itching, [...] Uriel Meade DO documented in this encounter [facility] 12-03-2023 History of Present illness Narrative Reason [...] Problems Diagnosis Date Noted Bipolar 1 disorder ([facility]) 11/13/2022 Anxiety 12/21/2022 Asthma ([facility]) 12/21/2022 Attention deficit hyperactivity disorder (ADHD), combined type ([facility]) 12/21/2022 Proteinuria 08/03/2010 PTSD (post-traumatic stress disorder) ([facility]) 12/21/2022 Bipolar affective disorder, current episode hypomanic ([facility]) 12/21/2022 Well woman exam with routine gynecological exam 03/19/2023 Resolved Ambulatory Problems Diagnosis Date Noted No Resolved Ambulatory Problems Past Medical History: Diagnosis Date Abnormal uterine bleeding (AUB) ADHD (attention deficit hyperactivity disorder) ([facility]) Amenorrhea Bilateral sacroiliitis ([facility]) Cervical cancer ([facility]) Chronic fatigue Chronic rhinitis [...] bleeding (AUB) ADHD (attention deficit hyperactivity disorder) ([facility]) Amenorrhea Bilateral sacroiliitis ([facility]) Cervical cancer ([facility]) Chronic fatigue Chronic rhinitis Chronic vaginitis Depression with anxiety Depression/Anxiety Endometriosis Gynecological disorder History of medical problems Question of bipolar disorder Infertility counseling Low libido Miscarriage S/P laparoscopy Sciatica, unspecified side Seasonal allergic rhinitis, unspecified trigger Serous otitis media, unspecified chronicity, unspecified laterality URI (upper respiratory infection) 03[place]01/2019 [facility] [place] Social History Tobacco Use Smoking [...] 03/2020 [facility] DILATION AND CURETTAGE OF UTERUS 03/07/2013 [...] nursing note reviewed. Exam conducted with a english composition instructor present. Vitals: Estimated body mass index is [...] have HSG done again locally at [facility]. Patient is to call office when she starts cycle and nurse will send HSG and HCG to [facility] Radiology. Will hold off on fertility meds for the next cycle until HSG results are back. Patient to return to clinic for annual and PRN as needed. Documented by Akua Streeter LPN on behalf of: Uriel Meade DO documented in this encounter [facility] 10-15-2023 Evaluation + Plan note Extrac latisha from: Title:ANES Post General Author:Gus Moreno DO. Date:10/15/23 Plan Transfer/Discharge: Patient exhibiting no signs of N/V. Hydration status is adequate. Extracted from: Title:Josh Basic PRE Author:Kenan Moreno DO. Date:10/15/23 Plan [place] [employer]esthesi[employer] (ASA) physical status classification: Class II. Anesthetic Preoperative Plan: Anesthesia General. [facility] 08-12-2024 Hospital Discharge instructions Patient Education [...] 09:50:26 Endoscopy, Care After Procedure [facility] [place] [place] Endoscopy Care After Procedure Please read the instructions outlined below and refer to this sheet in the next few weeks. These discharge instructions provide you with general information on [facility] Your doctor may also give you [...] Document Re-Released: 08/13/2006 ExitCare Patient Information 2009 [employer]. Follow Up Care 09/13/2023 15:40:21 With:Alex Knutson Address: [address] [place] [address], [address] [place] [address]- [phone] Business (1) When:1 to 2 weeks Comments:Call for any problems. [facility] 08-12-2024 NoteProgress Note-Physician Patient: INDU ST [...] Daily, # 527 gm, Refills(s) 5, Pharmacy: [facility] #[id number], 167, cm, 09/13/23 14:57:00 EDT, Height/Length Dosing, 48.9, kg, 09/13/23 14:57:00 EDT, Weight Dosing Pantoprazole [address] Tab: 40 mg = 1 tab(s), Oral, Daily, # 30 tab(s), Refills(s) 4, Pharmacy: [facility] #[id number], 167, cm, 09/13/23 14:57:00 EDT, Height/Length Dosing, [...] CT of the abdomen / SNOMED CT 7474385353 / Confirmed Abnormal uterine bleeding. / SNOMED CT 4851210649 / Confirmed Amenorrhea / SNOMED CT 30686873 / Confirmed Anemia / SNOMED CT 501343480 / Confirmed Anxiety / SNOMED CT 61964598 / Confirmed Asthma / SNOMED CT 516946326 / Confirmed Attention deficit hyperactivity disorder / SNOMED CT 5579758540 / Confirmed Benign neoplasm of pituitary gland / SNOMED CT 729985894 / Confirmed Bilateral arthritis of sacroiliac joint / SNOMED CT 1907036037 / Confirmed Bipolar disorder / SNOMED CT 18626655 / Confirmed Chronic rhinitis / SNOMED CT 055971719 / Confirmed Chronic vaginitis / SNOMED CT 50108689 / Confirmed Depressive disorder / SNOMED CT 44807928 / Confirmed Disorder of pituitary gland / SNOMED CT 4018145752 / Confirmed Endometriosis (clinical) / SNOMED CT 213909856 / Confirmed Esophagitis / SNOMED CT 85403488 / Confirmed Fatigue / SNOMED CT 442269254 / Confirmed Gastritis / SNOMED CT 3860143 / Confirmed Heartburn / SNOMED CT 66894365 / Confirmed History of laparoscopy / SNOMED CT 4329745831 / Confirmed Malignant tumor of cervix / SNOMED CT 726856876 / Confirmed Miscarriage / SNOMED CT 02418834 / Confirmed Nausea and vomiting / SNOMED CT 27445857 / Confirmed Pain in pelvis / SNOMED CT 873019141 / Confirmed Prolactin level above reference range / SNOMED CT 0309201766 / Confirmed Prolactinoma / SNOMED CT 516933887 / Confirmed Sciatica / SNOMED CT 86558532 / Confirmed Seasonal allergic rhinitis / SNOMED CT 324984671 / Confirmed Stress-related physiological response affecting medical condition / SNOMED CT 13692093 / Confirmed 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 Weight loss / SNOMED CT 278946116 / Confirmed Physical Examination Vital Signs 10/15/2023 [...] Heart Rate (more content not included)...[facility]Result Comment: Electronically Signed By: Lenny Moreno DO\.br\Date and Time Signed: 10/15/23 10:06 [id number] NoteColonoscopy Procedure Report Patient: INDU ST Age: [...] Daily, # 527 gm, Refills(s) 5, Pharmacy: [facility] #[id number], 167, cm, 09/13/23 14:57:00 EDT, Height/Length Dosing, 48.9, kg, 09/13/23 14:57:00 EDT, Weight Dosing Pantoprazole [address] Tab: 40 mg = 1 tab(s), Oral, Daily, # 30 tab(s), Refills(s) 4, Pharmacy: [facility] #[id number], 167, cm, 09/13/23 14:57:00 EDT, Height/Length Dosing, [...] 3. Normal terminal ileum Images Procedure images: Rec1_hd_video_2023__[id number]_[id number].jpg Rec_hd_video__T08_39_[id number].jpg Rec1_hd_video__T08_40_57_302.jpg Rec1_hd_video__T08_42_34_852.jpg Rec1_hd_video__T08_46_45_130.jpg Rec1_hd_video__T08_47_05_541.jpg Rec1_hd_video__T08_47_14_286.jpg . Post-Procedure Complications: none. Estimated blood loss: none. Specimens: none. Devices/ implants: none left in place. Impression and Plan internal hemorrhoids Otherwise, normal colon Recommendations: Repeat colonoscopy:: At the age of 44 . Follow-up:: in clinic as scheduled. Diet:: Previous. Medication resumption:: Continue current medications, Avoid NSAIDs. Return to activities:: After 24 hours. Education and Follow-up: Counseled: Patient, Family.[facility] Comment on above:Other Comment: Missing Attachment - attachment storage system not supported [id number] Can be viewed in source system Missing Attachment - attachment storage system not supported [id number] Can be viewed in source systemMissing Attachment - attachment storage system not supported [id number] Can be viewed in source systemMissing Attachment - attachment storage system not supported [id number] Can be viewed in source systemMissing Attachment - attachment storage system not supported [id number] Can be viewed in source systemMissing Attachment - attachment storage system not supported [id number] Can be viewed in source systemMissing Attachment - attachment storage system not supported [id number] Can be viewed in source [id number] Note Patient Education - Text Colonoscopy Care After Surgery Please read the instructions outlined below and refer to this sheet in the next few weeks. These discharge instructions provide you with general information on caring for [facility] Your doctor may also give you [...] Document Re-Released: 08/13/2006 ExitCare? Patient Information ?2009 [employer] 10-15-2023 NoteProgress Note-Physician Patient: INDU ST [...] Daily, # 527 gm, Refills(s) 5, Pharmacy: [facility] #[id number], 167, cm, 09/13/23 14:57:00 EDT, Height/Length Dosing, 48.9, kg, 09/13/23 14:57:00 EDT, Weight Dosing Pantoprazole [address] Tab: 40 mg = 1 tab(s), Oral, Daily, # 30 tab(s), Refills(s) 4, Pharmacy: [facility] #[id number], 167, cm, 09/13/23 14:57:00 EDT, Height/Length Dosing, [...] CT of the abdomen / SNOMED CT 0528892857 / Confirmed Abnormal uterine bleeding. / SNOMED CT 7371283759 / Confirmed Amenorrhea / SNOMED CT 14448714 / Confirmed Anemia / SNOMED CT 972729030 / Confirmed Anxiety / SNOMED CT 95995277 / Confirmed Asthma / SNOMED CT 355818598 / Confirmed Attention deficit hyperactivity disorder / SNOMED CT 1531952655 / Confirmed Benign neoplasm of pituitary gland / SNOMED CT 408088358 / Confirmed Bilateral arthritis of sacroiliac joint / SNOMED CT 7753772506 / Confirmed Bipolar disorder / SNOMED CT 25013031 / Confirmed Chronic rhinitis / SNOMED CT 057734411 / Confirmed Chronic vaginitis / SNOMED CT 64950338 / Confirmed Depressive disorder / SNOMED CT 64043494 / Confirmed Disorder of pituitary gland / SNOMED CT 3493708074 / Confirmed Endometriosis (clinical) / SNOMED CT 609327239 / Confirmed Esophagitis / SNOMED CT 12121341 / Confirmed Fatigue / SNOMED CT 418785181 / Confirmed Gastritis / SNOMED CT 4824037 / Confirmed Heartburn / SNOMED CT 36157701 / Confirmed History of laparoscopy / SNOMED CT 0521558009 / Confirmed Malignant tumor of cervix / SNOMED CT 573760685 / Confirmed Miscarriage / SNOMED CT 27605245 / Confirmed Nausea and vomiting / SNOMED CT 46128116 / Confirmed Pain in pelvis / SNOMED CT 755009219 / Confirmed Prolactin level above reference range / SNOMED CT 2681679132 / Confirmed Prolactinoma / SNOMED CT 128065162 / Confirmed Sciatica / SNOMED CT 46658392 / Confirmed Seasonal allergic rhinitis / SNOMED CT 161449409 / Confirmed Stress-related physiological response affecting medical condition / SNOMED CT 84040273 / Confirmed Visceral hypersensitivity syndrome / SNOMED CT 3238167509 / Confirmed Weight loss / SNOMED CT 819612905 / Confirmed, Active Problems (31) Abnormal CT of the abdomen Abnormal uterine bleeding. 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 Bipolar disorder Chronic rhinitis Chronic vaginitis Depressive disorder Disorder of pituitary gland Endometriosis (cl (more content not included)...[facility] Comment on above:Result Comment: Electronically Signed By: Lenny Moreno DO.br\Date and Time Signed: 10/15/23 07:34 [id number] Telephone encounter Note* Telephone Encounter - Twyla Caraballo MA - 08/14/2023 11:08 AM EDT Received MRI results completed 08/02/2023, scanned to chart Twyla Caraballo Skein Yarn Dyer II Endocrinology & Met[facility] [place] [facility] F20 & X20 [facility]06-11-2024 Miscellaneous Notes* Telephone Encounter - Twyla Caraballo MA - 08/14/2023 11:08 AM EDT Received MRI results completed 08/02/2023, scanned to chart Twyla Caraballo Skein Y[employer] Dyer II Endocrinology & Metabolism [place] [facility] F20 & X20 [facility] Reason for referral (narrative)* Consultation (Routine) - Authorized Specialty Diagnoses / Procedures Referred By Niki villeda Referred To Contact Gastroenterology Abiodun Ochoa PA-C [address] [facility] [address] [place] [address] Do Ordgv980 Gastro1 [address] [place] [address] Referral ID Status Reason Start Date Expiration Date Visits Requested Visits Authorized [id number] Authorized Specialty Services Required 07/20/2023 07/19/2024 1 1 [facility] Work Phone: [phone] NoteHNO ID: [id number] Author: KARINA VINCENT MD Service: ? Author [...] June 13, 2023 TIME of SERVICE: 10:12 [facility]04-10-2024 History of Present illness Narrative* Karina Vincent [...] of SERVICE: 10:12 AM documented in [facility]11-18-2021 NoteHNO ID: [id number] Author: Renetta Beltran MD Service: Reproductive Endocrinology [...] Dr. Renetta Beltran M.D. Reproductive Endocrinology and InfertilityRiverton [id number] NoteHNO ID: [id number] Author: RT Juan(R) Service: Radiology Author Type: [...] Samina Davison, RT(R) January 20, 2021 12:29 [facility] HospitalEvaluation + Plan note Future Appointments Appointment Date:10/01/2023 09:00:00 AM Scheduled Provider: Location:[facility] Appointment Type:Surgery FT [facility] Evaluation note* Diagnosis Prolactinoma (HCC)- Primary Benign neoplasm of pituitary gland and craniopharyngeal duct (pouch) 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HCC) Unspecified disorder of the pituitary gland and its hypothalamic control Elevated prolactin level Unspecified endocrine disorder [facility] encounter [facility]* Diagnosis Nausea and vomiting, unspecified vomiting type- Primary Gastritis, presence of bleeding unspecified, unspecified chronicity, unspecified gastritis type documented in this encounter [facility] Work Phone: Evaluation note* Diagnosis Female infertility Female infertility of unspecified origin Vaginal odor Unspecified symptom associated with female genital organs documented in this encounter [facility] HealthcareEvaluation note* Diagnosis Myalgia- Primary Unspecified myalgia and myositis documented in this encounter [facility] HealthcareEvaluation note* Diagnosis Fallopian tube disorder- Primary Unspecified noninflammatory disorder of ovary, fallopian tube, and broad ligament documented in this encounter [facility] HealthcareEvaluation note* Diagnosis Myalgia- Primary Unspecified myalgia and myositis Fallopian tube disorder Unspecified noninflammatory disorder of ovary, fallopian tube, and broad ligament Anovulation Female infertility associated with anovulation Female infertility Female infertility of unspecified origin [facility] Narrative No data available for this section [facility] Hospital Discharge instructions* Attachments The following attachments cannot be sent through Care Everywhere. * Gastritis ED ([place]) * Nausea and Vomiting, Adult ED ([place]) * Cannabis hyperemesis syndrome ([place]) [facility] Work Phone: Hospital Discharge instructions No data available for this section [facility] Progress note No data available for this section [facility] Summary Purpose Family History [...] STEM W/O W/CONTRAST MATERIAL Karina Vincent MD [address] [place] [address] Mr Imaging [facility] Referral ID Status Reason Start Date Expiration Date Visits Requested Visits Authorized [id number] Pending Review Auto-Generat ed Referral 07/11/2023 08/09/2024 1 1 Additional Source Comments INFORMATION SOURCE (unrecogn ized section and content) DATE CREATED AUTHOR 04/15/2020 [facility] DATE CREATED AUTHOR AUTHOR'S ORGANIZ ATION 01/22/2021 [facility] DATE CREATED AUTHOR AUTHOR'S ORGANIZ ATION 07/30/2023 [facility] DATE CREATED AUTHOR AUTHOR'S ORGANIZ ATION 08/24/2023 [facility] DATE CREATED AUTHOR AUTHOR'S ORGANIZ ATION 09/19/2023 [facility] DATE CREATED AUTHOR AUTHOR'S ORGANIZ ATION 10/16/2023 [facility] DATE CREATED AUTHOR AUTHOR'S ORGANIZ ATION 10/18/2023 [facility] DATE CREATED AUTHOR AUTHOR'S ORGANIZ ATION 10/19/2023 [facility] DATE CREATED AUTHOR AUTHOR'S ORGANIZ ATION 02/21/2024 [facility] DATE CREATED AUTHOR AUTHOR'S ORGANIZ ATION 02/23/2024 [facility] DATE CREATED AUTHOR AUTHOR'S ORGANIZ ATION 02/24/2024 [facility] DATE CREATED AUTHOR AUTHOR'S ORGANIZ ATION 04/13/2024 [facility] DATE CREATED AUTHOR AUTHOR'S ORGANIZ ATION 04/16/2024 [facility] EPIC Source Comments (unrecognize d section and content) In the event this informatio n is protected by the Federal Confidentiality of Alcohol and Drug Abuse Patient Records regulations: The Federal rules restrict any use of the information to criminally investigate or prosecute any alcohol or drug abuse patient.[facility] HospitalIn the event this information is protected by the Federal Confidentiality of Alcohol and Drug Abuse Patient Records regulations: The Federal rules restrict any use of the information to criminally investigate or prosecute any alcohol or drug abuse patient.[facility] Reason for Visit (unrecogniz ed section and content) Reason Comments Pituitary Problem Reason Comments n/v. 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 06/05/23 Lacing String Cutter Relationship Specialty Start Date End Date Carolyne Collazo MD [address] [place] [address] PCP - General Family Medicine 08/28/22 Lacing String Cutter Relationship Specialty Start Date End Date Carolyne Collazo MD [address] [place] [address] PCP - General Family Medicine 08/28/22 Lacing String Cutter Relationship Specialty Start Date End Date Carolyne Collazo MD [address] [place] [address] PCP - General Family Medicine 08/28/22 Lacing String Cutter Relationship Specialty Start Date End Date Carolyne Collazo MD [address] [place] [address] PCP - General Family Medicine 08/28/22 Lacing String Cutter Relationship Specialty Start Date End Date Carolyne Collazo MD [address] [place] [address] PCP - General Family Medicine 08/28/22 Lacing String Cutter Relationship Specialty Start Date End Date Carolyne Collazo MD [address] [place] [address] PCP - General Family Medicine 08/28/22 Lacing String Cutter Relationship Specialty Start Date End Date Carolyne Collazo MD [address] [place] [address] PCP - [facility] 08/28/22 Lacing String Cutter Relationship Specialty Start Date End Date Carolyne Collazo MD [address] [place] [address] PCP - [facility] 08/28/22 Lacing String Cutter Relationship Specialty Start Date End Date Carolyne Collazo MD [address] [place] [address] PCP - [facility] 08/28/22 Lacing String Cutter Relationship Specialty Start Date End Date Carolyne Collazo MD [address] [place] [address] PCP - [facility] 08/28/22 Lacing String Cutter Relationship Specialty Start Date End Date Carolyne Collazo MD [address] [place] [address] PCP - [facility] 08/28/22 Scheduled Active and Recently Administ ered [...] BE BASED ON THE PRIMARY CLINICAL RECORDS. [employer] [facility]. provides no warranty or guarantee of the accuracy or completeness of information in this document.
== END 2024-04-17 07:01 | disposition home or self-care (01) ==
LOC: US 07:00
PROVIDERS: PCP Family Medicine
DX: Z31.83 Encounter for assisted reproductive fertility procedure cycle (principal)
CPT/HCPCS: 76830

== ENCOUNTER 2024-04-18 06:47 | Outpatient (OUT) | payer BC, SELFPAY ==
--- NOTE | 2024-04-18 06:50 | US_ITS ---
[address] [address] Patient Name: INDU ST MRN: [id number] date: 1995 Sex: F Assigned Patient Location: [place] Current Patient Location: [place] Accession/Order Number: [id number] Exam Date: 04/18/2024 07:00 Report Date: 04/18/2024 07:38 At the request of: JADE MARIANO Procedure: US pelvis transvaginal EXAMINATION: US pelvis transvaginal HISTORY: Encounter For ART Procedure Z31.83 COMPARISON: Ultrasound pelvis transvaginal 04/17/2024 TECHNIQUE: Transabdominal and/or transvaginal sonographic examination was performed as indicated by examination type. FINDINGS: UTERUS: Normal size and appearance. Uterus size: 9.0 x 5.7 x 4.4 cm ENDOMETRIUM: Normal homogeneous appearance. Endometrial thickness: 7 mm RIGHT OVARY: Contains 14 follicles measured in millimeters: 23, 13, 12, 12, 8, 7, 9, 4, 16, 24, 13, 16, 11, 9 mm Duplex Doppler demonstrates normal waveform and flow; resistive index 0.5. Ovary size: 6.6 x 3.3 x 3.3 cm LEFT OVARY: Contains 8 follicles measure 10 mm: 20, 11, 10, 5, 13, 17, 12, 12 mm Duplex Doppler demonstrates normal waveform and flow; resistive index 0.5. Ovary size: 5.8 x 3.3 x 3.2 cm CUL-DE-SAC: Unremarkable. No significant free fluid. BLADDER: Unremarkable. OTHER: None. US/US pelvis transvaginal IMPRESSION: 1. Multiple ovarian follicles bilaterally as detailed above. Electronically authenticated by: BRIAN NAYAK Date: 04/18/2024 07:38
--- OUTSIDE RECORDS SUMMARY | 2024-04-18 06:50 | XMS_ITS | CCD ---
Author Organization [facility] Care Team Providers Care Cardiac Monitor Technician Name Role Phone YASMIN MARTINEZ Consulting [...] Attending Unavailable Carolyne Collazo Primary Care Physician [phone] GWEN DANIELSON Attending Unavailable Mouchli, Mohamad A. Referring Unavailable Mouchli, Mohamad A. Admitting Unavailable Zenia, Mohamad A. Attending Unavailable Alex Knutson Attending Unavailable Carolyne Collazo Referring Unavailable Mouchli, Mohamad A. Referring Unavailable Mouchli, Mohamad A. Attending Unavailable Mohelena, Mohamad ATyrone Admitting Unavailable Carolyne Collazo MD Primary Care Provider [phone] Carolyne Collazo Attending Unavailable Carolyne Collazo Admitting [...] Medication Allergies] Propensity to adverse reactions (disorder) [facility] Repository (17 sources) House dust mite [...] by mouth once daily fish oil concentrate (Packwood-3) 1000 MG capsule Indications: Female infertility , [...] Daily, # 527 gram, Refills(s) 0, Pharmacy: [facility][id number], 168, cm, 09/15/19 7:03:00 EDT, Height/Length Measured, [...] tablet 07/20/2023 08/09/2023 Active polyethylene glycol 3350 65909 mg powder for oral solution (2 sources) Osmotic Laxative Start: 09-13-2023 take 17 g by mouth once daily Miralax 3350 17 gram packet 17 gm, Oral, Daily, # 527 gm, Refills(s) 5, Pharmacy: [facility] #[id number], 167, cm, 09/13/23 14:57:00 EDT, Height/Length Dosing, [...] breakfast, # 30 tab(s), Refills(s) 1, Pharmacy: [facility] #[id number], 168, cm, 09/09/19 8:18:00 EDT, Height/Length Measured, [...] 05-16-2013 Chronic Other aftercare (1 source) Other residential (current) drug therapy; Translations: [OTH 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 Ordering Physician: Jade Ledbetter M.D. Date of Service: 04/16/24 Procedure(s): US pelvis transvaginal Accession Number(s): [id number] cc: CAROLYNE COLLAZO ; Jade Ledbetter M.D. The [place] [address] Patient Name: INDU ST MRN: [facility]:[id number] date: 1995 Sex: F Assigned Patient Location: US Current Patient Location: US Accession/Order Number: [id number] Exam Date: 04/16/2024 07:03 Report Date: 04/16/2024 [...] Signed By: 04/16/24 1133 DD/ 1131 TD/TT: Linoleum Mechanic: [facility] Radiology, Radiologtaylor kc MD - 04/16/2024 [place] [address] Ultrasound Report Signed Patient: INDU ST MR#: [id number] : 1995 Acct:[id number] Age/Sex: 28 / F ADM Date: 04/16/24 Loc: US Attending Dr: Jade Ledbetter M.D. Ordering Physician: Jade Ledbetter M.D. Date of Service: 04/16/24 Procedure(s): US pelvis transvaginal Accession Number(s): [id number] cc: CAROLYNE COLLAZO ; Jade Ledbetter M.D. [place] [id number] Patient Name: INDU ST MRN: [id number] date: 1995 Sex: F Assigned Patient Location: US Current Patient Location: US Accession/Order Number: [id number] Exam Date: 04/16/2024 07:03 Report Date: 04/16/2024 [...] Signed By: 04/16/24 1133 DD/ 1131 TD/TT: Linoleum Mechanic: [facility] Radiology Study observation (narrative) [facility] US PELVIS TRANSVAGINALOmarleen jorge By: Radiologist Radiology on 04-16-2024 [facility] Work Phone: [place] [address] Ultrasound Report Signed Patient: INDU ST MR#: [id number] : 1995 Acct:[id number] Age/Sex: 28 / F ADM Date: 04/14/24 Loc: US Attending Dr: Jade Ledbetter M.D. Ordering Physician: Jade Ledbetter M.D. Date of Service: 04/14/24 Procedure(s): US pelvis transvaginal Accession Number(s): [id number] cc: CAROLYNE COLLAZO ; Jade Ledbetter M.D. The [place] [id number] Patient Name: INDU ST MRN: [facility]:[id number] date: 1995 Sex: F Assigned Patient Location: US Current Patient Location: US Accession/Order Number: [id number] Exam Date: 04/14/2024 07:00 Report Date: 04/14/2024 [...] Signed By: 04/14/24 0745 DD/ 0742 TD/TT: Linoleum Mechanic: [facility] Radiology, Radiologi MD de - 04/14/2024 [place] [address] Ultrasound Report Signed Patient: INDU ST MR#: [id number] : 1995 Acct:[id number] Age/Sex: 28 / F ADM Date: 04/14/24 Loc: US Attending Dr: Jade Ledbetter M.D. Ordering Physician: Jade Ledbetter M.D. Date of Service: 04/14/24 Procedure(s): US pelvis transvaginal Accession Number(s): [id number] cc: CAROLYNE COLLAZO ; Jade Ledbetter M.D. [place] [id number] Patient Name: INDU ST MRN: [id number] date: 1995 Sex: F Assigned Patient Location: US Current Patient Location: US Accession/Order Number: [id number] Exam Date: 04/14/2024 07:00 Report Date: 04/14/2024 [...] Mckeon M.D. Signed By: 04/14/2445 DD/ TD/TT: Linoleum Mechanic: [facility] Radiology Study observation (narrative) [facility] US PELVIS TRANSVAGINALOrdere d By: Radiologist Radiology on 04-14-2024 [facility] Work Phone: [facility] PELVIS TRANSVAGINALon [address] [address] Ultrasound Report Signed Patient: INDU ST MR#: [id number] : 1995 Acct:[id number] Age/Sex: 28 / F ADM Date: 04/08/24 Loc: US Attending Dr: Jade Ledbetter M.D. Ordering Physician: Jade Ledbetter M.D. Date of Service: 04/08/24 Procedure(s): US pelvis transvaginal Accession Number(s): [id number] cc: CAROLYNE COLLAZO ; Jade Ledbetter M.D. [address] [address] Patient Name: INDU ST MRN: [id number] date: 1995 Sex: F Assigned Patient Location: US Current Patient Location: US Accession/Order Number: [id number] Exam Date: 04/08/2024 13:45 Report Date: 04/08/2024 [...] Signed By: 04/08/24 1442 DD/ 1439 TD/TT: Linoleum Mechanic: [facility] Radiology, Radiologi MD de - 04/08/2024 [place] [address] Ultrasound Report Signed Patient: INDU ST MR#: [id number] : 1995 Acct:[id number] Age/Sex: 28 / F ADM Date: 04/08/24 Loc: US Attending Dr: Jade Ledbetter M.D. Ordering Physician: Jade Ledbetter M.D. Date of Service: 04/08/24 Procedure(s): US pelvis transvaginal Accession Number(s): [id number] cc: CAROLYNE COLLAZO ; Jade Ledbetter M.D. The [place] [address] Patient Name: INDU ST MRN: [facility]:[id number] date: 1995 Sex: F Assigned Patient Location: US Current Patient Location: US Accession/Order Number: [id number] Exam Date: 04/08/2024 13:45 Report Date: 04/08/2024 [...] Signed By: 04/08/24 1442 DD/ 143 TD/TT: Linoleum Mechanic: [facility] Radiology Study observation (narrative) [facility] US PELVIS TRANSVAGINALOrdere d By: Radiologist Radiology on 04-08-2024 [facility] Work Phone: MLR HEMOGLOBIN A1Con 025 Glucose [Mass/Vol] 105 mg/dL [facility] HbA1c (Bld) [Mass fraction] 5.3 % 4.5 - 6.2 % [facility] Comment on above: ADA RECOMMENDED LIMI T 4.0 - 6.0 ADA THERAPEUTIC TARGET < 7.0 ACTION SUGGESTED > 7.0 [facility] JESUS Individual Abson 024 Anti-Centro B Ab See Refr Report Invalid Interpretation Code [facility] Comment on above: Performed By: #### 2 [id number] #### [facility] Laboratory [address] [place] [address] WRITTEN AUTHORIZATIONon 02-02 Written Authorization Comment Invalid Interpretation Code [facility] Comment on above: Result Comment: Writ ten Authorization Received. Authorization received from ORIGINAL ORDER 02-20-2024 Logged by Valentina Peters Performed at: [facility] [id number] PhD Randa Ochoa Performed By: #### 3 [id number] #### [facility] [address] [place] [address] RF Quanton 02-20-2024 Rheumatoid factor Qn 13.2 International_Unit/mL Invalid Interpretation Code <14.0 [facility] Comment on above: Result Comment: Perf ormed at: [facility] [address] [id number] PhD Randa Ochoa Performed By: #### 1 [id number] #### [facility] [address] [place] [address] CBC w/ Auto Diffon 4 Basophils/100 WBC (Bld) 0.3 % Normal 0.0-2.0 [facility] Comment on above: Performed By: #### 2 076502 #### [facility] [address] [place] [address] Erythrocyte distribution width (RBC) [Ratio] 14.3 % High 10.9-14.2 [facility] Comment on above: Performed By: #### 2 [id number] #### [facility] [address] [place] [address] Hematocrit (Bld) [Volume fraction] 40.4 % Normal 34.0-46.0 [facility] Comment on above: Performed By: #### 2 [id number] #### [facility] [address] [place] [address] Lymphocytes/100 WBC (Bld) 16.1 % Normal 14.0-50.0 [facility] Comment on above: Performed By: #### 2 660806 #### [facility] [address] [place] [address] Neutrophils/100 WBC (Bld) 75.3 % High 36.0-75.0 [facility] Comment on above: Performed By: #### 2 516797 #### [facility] [address] [place] [address] Platelet mean volume (Bld) [Entitic vol] 8.5 fL Normal 6.4-10.8 [facility] Comment on above: Performed By: #### 2 664527 #### [facility] [address] [place] [address] Basophils/Leukocytes Auto (Bld) [Pure # fraction] 0.0 E9/L Normal 0.0-0.2 [facility] Comment on above: Performed By: #### 2 187784 #### [facility] [address] [place] [address] Eosinophils (Bld) [#/Vol] 0.0 E9/L Normal 0.0-0.5 [facility] Comment on above: Performed By: #### 2 799360 #### [facility] [address] [place] [address] Eosinophils/100 WBC (Bld) 0.4 % Normal 0.0-8.0 [facility] Comment on above: Performed By: #### 2 207215 #### [facility] [address] [place] [address] Hemoglobin (Bld) [Mass/Vol] 14.2 g/dL Normal 12.0-16.0 [facility] Comment on above: Performed By: #### 2 725643 #### [facility] [address] [place] [address] Lymphocytes (Bld) [#/Vol] 1.1 E9/L Normal 1.0-4.0 [facility] Comment on above: Performed By: #### 2 183188 #### [facility] [address] [place] [address] MCH (RBC) [Entitic mass] 30.4 pg Normal 27.0-34.0 [facility] Comment on above: Performed By: #### 2 977997 #### [facility] [address] [place] [address] MCHC (RBC) [Mass/Vol] 35.1 g/dL Normal 31.4-36.0 [facility] Comment on above: Performed By: #### 2 142381 #### [facility] [address] [place] [address] MCV (RBC) [Entitic vol] 86.7 fL Normal 80.0-100.0 [place] Comment on above: Performed By: #### 2 [id number] #### [facility] [address] [place] [address] Monocytes (Bld) [#/Vol] 0.5 E9/L Normal 0.2-1.0 [facility] Comment on above: Performed By: #### 2 512294 #### [facility] [address] [place] [address] Neutrophils (Bld) [#/Vol] 5.1 E9/L Normal 2.0-7.5 [facility] Comment on above: Performed By: #### 2 726610 #### [facility] [address] [place] [address] Platelet 235.0 E9/L Normal 150.0-500.0 [facility] Comment on above: Performed By: #### 2 090572 #### [facility] [address] [place] [address] RBC (Bld) [#/Vol] 4.7 E12/L Normal 4.3-5.9 [facility] Comment on above: Performed By: #### 2 918719 #### [facility] [address] [place] [address] WBC corrected for nucl RBC Auto (Bld) [#/Vol] 6.8 E9/L Normal 4.0-11.0 [facility] Comment on above: Performed By: #### 2 743886 #### [facility] [address] [place] [address] CHEMISTRYOrdered By: SYSTEM SYSTEM on 02-18-2024 Albumin [...] 02-18-2024 Albumin [Mass/Vol] 4.5 g/dL Normal 3.3-5.0 [facility] Comment on above: Performed By: #### 2 815697 #### [facility] [address] [place] [address] Albumin/Globulin (S) [Mass conc ratio] 1.6 Normal 1.1-2.2 [facility] Comment on above: Performed By: #### 2 655788 #### [facility] [address] [place] [address] ALP [Catalytic activity/Vol] 55 Int._Unit/L Normal 21-98 [facility] Comment on above: Performed By: #### 2 621314 #### [facility] [address] [place] [address] ALT No additional P-5'-P [Catalytic activity/Vol] 13 Int._Unit/L Normal 6-46 [facility] Comment on above: Performed By: #### 2 963316 #### [facility] [address] [place] [address] Anion gap [Moles/Vol] 14 mmol/L Normal 6-16 [facility] Comment on above: Performed By: #### 2 701871 #### [facility] [address] [place] [address] AST [Catalytic activity/Vol] 13 Int._Unit/L Normal 5-43 [facility] Comment on above: Performed By: #### 2 442239 #### [facility] [address] [place] [address] Bilirubin [Mass/Vol] 0.5 mg/dL Normal 0.0-1.1 [facility] Comment on above: Performed By: #### 2 841577 #### [facility] [address] [place] [address] Calcium [Mass/Vol] 9.3 mg/dL Normal 8.9-11.1 [facility] Comment on above: Performed By: #### 2 765831 #### [facility] [address] [place] [address] Chloride [Moles/Vol] 103 mmol/L Normal 101-111 [facility] Comment on above: Performed By: #### 2 774346 #### [facility] [address] [place] [address] CO2 [Moles/Vol] 26 mmol/L Normal 21-31 [facility] Comment on above: Performed By: #### 2 672369 #### [facility] [address] [place] [address] Creatinine [Mass/Vol] 0.7 mg/dL Normal 0.5-1.3 [facility] Comment on above: Performed By: #### 2 258863 #### [facility] [address] [place] [address] Globulin (S) [Mass/Vol] 2.9 g/dL Normal 1.4-4.0 [place] Comment on above: Performed By: #### 2 576682 #### [facility] [address] [place] [address] Glucose [Mass/Vol] 86 mg/dL Normal 55-199 [facility] Comment on above: Performed By: #### 2 825597 #### [facility] [address] [place] [address] Potassium [Moles/Vol] 4.0 mmol/L Normal 3.5-5.3 [facility] Comment on above: Performed By: #### 2 914305 #### [facility] [address] [place] [address] Protein [Mass/Vol] 7.4 g/dL Normal 6.0-7.8 [facility] Comment on above: Performed By: #### 2 508759 #### [facility] [address] [place] [address] Sodium [Moles/Vol] 139 mmol/L Normal 135-145 [facility] Comment on above: Performed By: #### 2 161837 #### [facility] [address] [place] [address] Urea nitrogen [Mass/Vol] 13 mg/dL Normal 5-21 [facility] Comment on above: Performed By: #### 2 987321 #### [facility] [address] [place] [address] Urea nitrogen/Creatinine [Mass ratio] 19 No Units Normal 10-20 [facility] Comment on above: Performed By: #### 2 160295 #### [facility] [address] [place] [address] [facility] CBC W/ AUTO DIFFon 02-02 EOSINOPHILS/100 LEUKOCYTES:NFR:PT:BLD:Q N:AUTOMATED COUNT 0.4 % 0.0 - 8.0 % [facility] EOSINOPHILS:NCNC:PT:BLD :QN: 0 [facility] BASOPHILS/LEUKOCYTES:NF R.DF:PT:BLD:QN:AUTOMATE D COUNT 0 [facility] ERYTHROCYTE MEAN CORPUSCULAR HEMOGLOBIN CONCENTRATION:MCNC:PT:R BC:QN 35.1 [facility] ERYTHROCYTE MEAN CORPUSCULAR HEMOGLOBIN:ENTMASS:PT:R BC:QN 30.4 pg 27.0 - 34.0 pg [facility] ERYTHROCYTE MEAN CORPUSCULAR VOLUME:ENTVOL:PT:RBC:QN :AUTOMATED COUNT 86.7 fL 80.0 - 100.0 fL [facility] ERYTHROCYTES:NCNC:PT:BL D:QN:AUTOMATED COUNT 4.7 [facility] HEMOGLOBIN:MCNC:PT:BLD: QN: 14.2 [facility] LEUKOCYTES 6.8 [facility] MONOCYTES:NCNC:PT:BLD:Q N:AUTOMATED COUNT 0.5 [facility] NEUTROPHILS:NCNC:PT:BLD :QN:AUTOMATED COUNT 5.1 [facility] Interpretation and review of laboratory results Abnormal [facility] LYMPHOCYTES:NCNC:PT:BLD :QN: 1.1 [facility] Platelets (Bld) [#/Vol] 235 10*3/uL [facility] Original Ordering Provider: MD Carolyne Collazo [facility] HEMATOLOGYOrdered By: SYSTEM SYSTEM on 02-18-2024 Basophils/100 [...] (Bld) [Velocity] 14 mm/h Normal 0-34 [facility] Comment on above: Performed By: #### 1 [id number] #### [facility] [address] [place] [address] eGFRon 02-18-2024 eGFR 120 mL/min/1.73 m2 Normal >=59 [facility] Comment on above: Performed By: #### 1 [id number] #### [facility] [address] [place] [address] ALL THYROID STIM HORMONEon 1 04-15-2023 TSH Qn 1.748 m[IU]/L [facility] No [facility] 02[facility] QU[facility]CGon 024 HCG QUANTITATIVE <1 mIU/mL [facility] Comment on above: 5-50 0.2-1 WEEK 50-500 1-2 WEEKS 100-5,000 2-3 WEEKS 500-10,000 3-4 WEEKS 1,000-50,000 4-5 WEEKS 10,000-100,000 5-6 WEEKS 15,000-200,000 6-8 WEEKS 10,000-100,000 2-3 MONTHS [facility] PREG QUANT HCGon 024 HCG QUANTITATIVE <1 mIU/mL [facility] Comment on above: 5-50 0.2-1 WEEK 50-500 1-2 WEEKS 100-5,000 2-3 WEEKS 500-10,000 3-4 WEEKS 1,000-50,000 4-5 WEEKS 10,000-100,000 5-6 WEEKS 15,000-200,000 6-8 WEEKS 10,000-100,000 2-3 MONTHS [facility] ALL PROGESTERONEon 4 PROGESTERONE 10.8 ng/mL . [facility] Comment on above: Follicular phase 0.1 - 0.9 Luteal phase 1.8 - 23.9 Ovulation phase 0.1 - 12.0 First trimester 11.0 - 44.3 Second trimester 25.4 - 83.3 Third trimester 58.7 - 214.0 Postmenopausal 0.0 - 0.1 Performed at: [address] [id number] Voice Instructor: Don Tolentino PhD, Phone: [phone] [facility] Surgical Pathology Reporton 10-17-2023 Surgical Pathology Report [address] [place] [address]- Surgical Pathology Report Collected Date/Time: 10/15/2023 09:32 [...] is entirely submitted in one cassette. (DC) DC:[facility] Microscopic Description A-C: Microscopic examination performed unless gross only specified. The use of one or more reagents in the above tests is regulated as an analyte specific reagent (ASR). The test or tests are ordered following initial H&E microscopic examination. The performance characteristics were determined by the [facility]. They have not been cleared or approved by the [place] Food and Drug Administration. The FDA has determined that such clearance or approval is not necessary. These tests are used for clinical purposes. They should not be regarded as investigational or for research. Appropriate positive and negative controls are performed and are acceptable. Normal [facility] Comment on above: Performed By: #### 4 [id number] #### [facility] [address] [place] [address] Main OR Intraoperative Recor don 10-16-2023 Main OR Intraoperative Record Main OR Intraoperative Record IntraOp Document Type FT Summary Primary Physician: Alex Knutson MD Finalized Date/Time: 10/16/23 12:11:53 Pt. Name: INDU ST/Sex: 1995 Female Med Rec #: [id number] Physician: Alex Knutson MD Financial #: [id number] Pt. Type: O Room/Bed: / Admit/Disch: 10/15/23 [...] RN, Promise Willis Role Performed Anesthesiologist of Accounting Associate - Primary Scrub - Primary Record Time [...] and tissue Entry 1 Skin Integrity Intact, [place], Warm, & Skin Abnormality No Dry Outcomes [...] and symptom (more content not included)... Normal [facility] B hCG Qualon 10-15-2023 Beta HCG ( test) Ql Negative Normal [facility] Comment on above: Performed By: #### 2 [id number] #### [facility] [address] [place] [address] Discharge Instructionson Discharge Instructions Discharge Instruc tions [...] weeks Comments: Call for any problems. Where: [address] [place] [address], [address] [place] [phone] Business (1) Medications What How Much When [...] MEDICATIONS Yo (more content not included)... Normal [facility] Comment on above: Result Comment: Elec [...] Daily, # 527 gm, Refills(s) 5, Pharmacy: [facility] #[id number], 167, cm, 09/13/23 14:57:00 EDT, Height/Length Dosing, 48.9, kg, 09/13/23 14:57:00 EDT, Weight Dosing Pantoprazole [address] Tab: 40 mg = 1 tab(s), Oral, Daily, # 30 tab(s), Refills(s) 4, Pharmacy: [id number], 167, cm, 09/13/23 14:57:00 EDT, Height/Length Dosing, [...] duodenum. Biopsies obtained Images Procedure images: Rec_hd_video_ [id number].jpg Rec1_hd_video_ [id number].jpg Rec1_hd_video_ [id number].jpg Rec1_hd_video_ [id number].jpg Rec1_hd_video_ [id number].jpg Rec1_hd_video_ [id number].jpg . Post-Procedure Complications: none. Estimated blood loss: minimal. Specimens: sent to pathology. Devices/ implants: none left in place. Impression and Plan mild gastropathy Recommendations: -Resume previous diet -Resume home medications -Await pathology results, follow in GI clinic in 1-2 after discharge Ramón [facility] Comment on above: Other Comment: Griselda blanco Attachment - attachment storage system not supported [id number] Can be viewed in source system Missing Attachment - attachment storage system not supported [id number] Can be viewed in source system Missing Attachment - attachment storage system not supported [id number] Can be viewed in source system Missing Attachment - attachment storage system not supported [id number] Can be viewed in source system Missing Attachment - attachment storage system not supported [id number] Can be viewed in source system Missing Attachment - attachment storage system not supported [id number] Can be viewed in source system Main OR PACU I Recordon 10-03 Main OR PACU I Record Main OR PACU I Rec ord PACU Phase I Document Type FT Summary Primary Physician: Alex Knutson MD Finalized Date/Time: 10/15/23 10:19:29 Pt. Name: ALMA ROSAINDU/Sex: 1995 Female Med Rec #: [id number] Physician: Alex Knutson MD Financial #: [id number] Pt. Type: O Room/Bed: / Admit/Disch: 10/15/23 [...] By: Mery Crocker RN 10/15/23 10:19 Normal [facility] Main OR Preoperative Recordo n 10-15-2023 Main OR Preoperative Record Main OR Preoperative Record Holding Area Document Type FT Summary Primary Physician: Alex Knutson MD Finalized Date/Time: 10/15/23 07:13:13 Pt. Name: INDU ST/Sex: 1995 Female Med Rec #: [id number] Physician: Alex Knutson MD Financial #: [id number] Pt. Type: O Room/Bed: / Admit/Disch: 10/15/23 [...] By: Ofe Atkins RN 10/15/23 07:13 Normal [facility] SEROLOGYOrdered By: Germaine Sauer on 10-15-2023 Beta HCG ( test) Ql Negative (10/15/23 7:55 AM) Normal [facility] Man Sero Ambulatory Visit Summaryon 0 [...] Visceral hypersensitivity syndrome Refills: 4 Pickup at [facility] #13442 New polyethylene glycol 3350 (Miralax 3350 17 gram packet) 17 Gram By Mouth Every day Weight loss Nausea and vomiting Heartburn Bipolar disorder Stress-related physiological response affecting medical condition Visceral hypersensitivity syndrome Refills: 5 Pickup at [facility] #99340 Unchanged alprazolam (Xanax 0.5 mg Tab) 1 [...] physician if questions or concerns Pharmacy Information [facility] #[id number]: [address] [place], [place] [id number] [phone] Allergies No Known Medication Allergies Problems Ongoing [...] choosing us for your care. Normal [facility] Gastroenterology Office/Clin ic Noteon 09-13-2023 Gastroenterology [...] Daily, # 30 tab(s), Refills(s) 4, Pharmacy: [facility] #[id number], 167, cm, 09/13/23 14:57:00 EDT, Height/Length Dosing, 48.9, kg, 09/13/23 14:57:00 EDT, Weight Dosing polyethylene glycol 3350, 17 gm, Oral, Daily, # 527 gm, Refills(s) 5, Pharmacy: [facility] #[id number], 167, cm, 09/13/23 14:57:00 EDT, Height/Length Dosing, 48.9, kg, 09/13/23 14:57:00 EDT, Weight Dosing Colonoscopy (Hospital Procedure) EGD Endoscopy (Hospital Procedure) 2. Nausea and vomiting (R11.2: Nausea with vomiting, unspecified) Ordered: pantoprazole, 40 mg = 1 tab(s), Oral, Daily, # 30 tab(s), Refills(s) 4, Pharmacy: [facility] #[id number], 167, cm, 09/13/23 14:57:00 EDT, Height/Length Dosing, 48.9, kg, 09/13/23 14:57:00 EDT, Weight Dosing polyethylene glycol 3350, 17 gm, Oral, Daily, # 527 gm, Refills(s) 5, Pharmacy: [facility] #[id number], 167, cm, 09/13/23 14:57:00 EDT, Height/Length Dosing, 48.9, kg, 09/13/23 14:57:00 EDT, Weight Dosing Colonoscopy (Hospital Procedure) EGD Endoscopy (Hospital Procedure) 3. Heartburn (R12: Heartburn) Ordered: pantoprazole, 40 mg = 1 tab(s), Oral, Daily, # 30 tab(s), Refills(s) 4, Pharmacy: [facility] #[id number], 167, cm, 09/13/23 14:57:00 EDT, Height/Length Dosing, 48.9, kg, 09/13/23 14:57:00 EDT, Weight Dosing polyethylene glycol 3350, 17 gm, Oral, Daily, # 527 gm, Refills(s) 5, Pharmacy: [facility] #[id number], 167, cm, 09/13/23 14:57:00 EDT, Height/Length Dosing, 48.9, kg, 09/13/23 14:57:00 EDT, Weight Dosing Colonoscopy (Hospital Procedure) EGD Endoscopy (Hospital Procedure) 4. Bipolar disorder (F31.9: Bipolar disorder, unspecified) Ordered: pantoprazole, 40 mg (more content not included)... Normal [facility] Comment on above: Result Comment: Elec tronically Signed By: Zenia ELLISON, Alex Kapoor.br\Date and Time Signed: 09/13/23 15:22 EDT Angelic 08-14-2023 MAHENDRA Telephone (ENDOMN) -------- INDU ST ([id number]) 1995 F Date Time Provider Department 08/14/23 KARINA VINCENT During your visit today, we recorded the following information about you: Twyla Caraballo MA 08/14/2023 11:09 AM Signed Received MRI results completed 08/02/2023, scanned to chart Twyla Caraballo Home Care Manager Rn II Endocrinology AND Metabolism [place] [facility] F20 AND X20 Allergies As of [...] Status:Closed by TWYLA CARABALLO on 08/14/23 Normal [facility] CBC W Auto Differential pane l (Bld)on 07-20-2023 Basophils (Bld) [#/Vol] 0.03 10*3/uL [facility] Basophils/100 WBC (Bld) 0.3 % 0.0 - 2.0 % [facility] Eosinophils (Bld) [#/Vol] 0.00 10*3/uL [facility] Eosinophils/100 WBC (Bld) 0.0 % 0.0 - 6.0 % [facility] Erythrocyte distribution width (RBC) [Ratio] 14.5 % 11.5 - 14.5 % [facility] Hematocrit (Bld) [Volume fraction] 39.1 % 36.0 - 46.0 % [facility] Hemoglobin (Bld) [Mass/Vol] 13.5 g/dL 12.0 - 16.0 g/dL [facility] Immature granulocytes (Bld) [#/Vol] 0.03 10*3/uL [facility] Immature granulocytes/100 WBC (Bld) 0.3 % 0.0 - 0.9 % [facility] Comment on above: Immature Granulocyte Count (IG) includes promyelocytes, myelocytes and metamyelocytes but does not include bands. Percent differential counts (%) should be interpreted in the context of the absolute cell counts (cells/UL). Interpretation and review of laboratory results Abnormal [facility] Lymphocytes (Bld) [#/Vol] 0.98 10*3/uL Low [facility] Lymphocytes/100 WBC (Bld) 8.5 % 13.0 - 44.0 % [facility] MCH (RBC) [Entitic mass] 28.7 pg 26.0 - 34.[address] [facility] MCHC (RBC) [Mass/Vol] 34.5 g/dL 32.0 - 36.0 g/dL [facility] MCV (RBC) [Entitic vol] 83 fL 80 - [address] [facility] Monocytes (Bld) [#/Vol] 0.13 10*3/uL [facility] Monocytes/100 WBC (Bld) 1.1 % 2.0 - 10.0 % [facility] Neutrophils (Bld) [#/Vol] 10.32 10*3/uL High [facility] Comment on above: Percent differential counts (%) should be interpreted in the context of the absolute cell counts (cells/uL). Neutrophils/100 WBC (Bld) 89.8 % 40.0 - 80.0 % [facility] Nucleated RBC/100 WBC (Bld) [Ratio] 0.0 % [facility] Platelets (Bld) [#/Vol] 290 10*3/uL [facility] RBC (Bld) [#/Vol] 4.71 10*6/uL [facility] WBC (Bld) [#/Vol] 11.5 10*3/uL [facility] Basophils (Bld) [#/Vol] 0.03 x10*3/uL Normal 0.00-0.10 [facility] Comment on above: Performed By: #### 5 7021-8 #### JIMENA Mark ([id number]) [facility] ([facility]) [address] [place] [address]4062 Basophils/100 WBC (Bld) 0.3 % Normal 0.0-2.0 [facility] Comment on above: Performed By: #### 5 7021-8 #### JIMENA Mark ([id number]) [facility] ([facility]) [address] [place] [address] Eosinophils (Bld) [#/Vol] 0.00 x10*3/uL Normal 0.00-0.70 [facility] Comment on above: Performed By: #### 5 7021-8 #### JIMENA Mark ([id number]) [facility] ([facility]) [address] [place] [address] 31506 Eosinophils/100 WBC (Bld) 0.0 % Normal 0.0-6.0 [facility] Comment on above: Performed By: #### 5 7021-8 #### JIMENA Mark ([id number]) [facility] ([facility]) [address] [place] [address] 50045 Erythrocyte distribution width (RBC) [Ratio] 14.5 % Normal 11.5-14.5 [facility] Comment on above: Performed By: #### 5 7021-8 #### JIMENA Mark ([id number]) [facility] ([facility]) [address] [place] [address] Hematocrit (Bld) [Volume fraction] 39.1 % Normal 36.0-46.0 [facility] Comment on above: Performed By: #### 5 7021-8 #### JIMENA Mark ([id number]) [facility] ([facility]) [address] [place] [address] 29372 Hemoglobin (Bld) [Mass/Vol] 13.5 g/dL Normal 12.0-16.0 [facility] Comment on above: Performed By: #### 5 7021-8 #### JIMENA Mark ([id number]) [facility] ([facility]) [address] [place] [address] 54916 Immature granulocytes (Bld) [#/Vol] 0.03 x10*3/uL Normal 0.00-0.70 [facility] Comment on above: Performed By: #### 5 7021-8 #### JIMENA Mark ([id number]) [facility] ([facility]) [address] [place] [address] 71315 Immature granulocytes/100 WBC (Bld) 0.3 % Normal 0.0-0.9 [facility] Comment on above: Result Comment: Yanet ture Granulocyte Count (IG) includes promyelocytes, myelocytes and metamyelocytes but does not include bands. Percent differential counts (%) should be interpreted in the context of the absolute cell counts (cells/UL). Performed By: #### 5 7021-8 #### JIMENA Mark ([id number]) [facility] ([facility]) [address] [place] [address] Lymphocytes (Bld) [#/Vol] 0.98 x10*3/uL Low 1.20-4.80 [facility] Comment on above: Performed By: #### 5 7021-8 #### JIMENA Mark ([id number]) [facility] ([facility]) [address] [place] [address] 44061 Lymphocytes/100 WBC (Bld) 8.5 % Normal 13.0-44.0 [facility] Comment on above: Performed By: #### 5 7021-8 #### JIMENA Mark ([id number]) [facility] ([facility]) [address] [place] [address] MCH (RBC) [Entitic mass] 28.7 pg Normal 26.0-34.0 [facility] Comment on above: Performed By: #### 5 7021-8 #### JIMENA Mark ([id number]) [facility] ([facility]) [address] [place] [address] MCHC (RBC) [Mass/Vol] 34.5 g/dL Normal 32.0-36.0 [facility] Comment on above: Performed By: #### 5 7021-8 #### JIMENA Mark ([id number]) [facility] ([facility]) [address] [place] [address] 40550 MCV (RBC) [Entitic vol] 83 fL Normal 80-100 [facility] Comment on above: Performed By: #### 5 7021-8 #### JIMENA Mark ([id number]) [facility] ([facility]) [address] [place] [address] 74513 Monocytes (Bld) [#/Vol] 0.13 x10*3/uL Normal 0.10-1.00 [facility] Comment on above: Performed By: #### 5 7021-8 #### JIMENA Mark ([id number]) [facility] ([facility]) [address] [place] [address] Monocytes/100 WBC (Bld) 1.1 % Normal 2.0-10.0 [facility] Comment on above: Performed By: #### 5 7021-8 #### JIMENA Mark ([id number]) [facility] ([facility]) [address] [place] [address] Neutrophils (Bld) [#/Vol] 10.32 x10*3/uL High 1.20-7.70 [facility] Comment on above: Result Comment: Perc ent differential counts (%) should be interpreted in the context of the absolute cell counts (cells/uL). Performed By: #### 5 7021-8 #### JIMENA Mark ([id number]) [facility] ([facility]) [address] [place] [address] 39193 Neutrophils/100 WBC (Bld) 89.8 % Normal 40.0-80.0 [facility] Comment on above: Performed By: #### 5 7021-8 #### JIMENA Mark ([id number]) [facility] ([facility]) [address] [place] [address] 52597 Nucleated RBC/100 WBC (Bld) [Ratio] 0.0 /100 WBCs Normal 0.0-0.0 [facility] Comment on above: Performed By: #### 5 7021-8 #### JIMENA Mark ([id number]) [facility] ([facility]) [address] [place] [address] 93902 Platelets (Bld) [#/Vol] 290 x10*3/uL Normal 150-450 [facility] Comment on above: Performed By: #### 5 7021-8 #### JIMENA Mark ([id number]) [facility] ([facility]) [address] [place] [address] 77869 RBC (Bld) [#/Vol] 4.71 x10*6/uL Normal 4.00-5.20 [facility] Comment on above: Performed By: #### 5 7021-8 #### JIMENA Mark ([id number]) [facility] ([facility]) [address] [place] [address] 29260 WBC (Bld) [#/Vol] 11.5 x10*3/uL High 4.4-11.3 [facility] Comment on above: Performed By: #### 5 7021-8 #### JIMENA Mark ([id number]) [facility] ([facility]) [address] [place] [address] CHEST ABDOMEN PELVIS W IV CONTRASTon 07-20-2023 CT CHEST ABDOMEN PELVIS W IV CONTRAST Interpreted By: Mag Santiago, STUDY: CT CHEST ABDOMEN PELVIS W IV CONTRAST; 07/20/2023 5:39 pm INDICATION: Signs/Symptoms:Persisten t vomiting, epigastric pain in the chest.. COMPARISON: Chest x-ray 07/20/2023. ACCESSION NUMBER(S): [id number] ORDERING CLINICIAN: ABIODUN OCHOA TECHNIQUE: Axial CT [...] Mag Santiago 07/20/2023 6:51 PM Dictation workstation: [id number] [facility] CT Chest and Abdomen and Pel vis [...] Mag Santiago 07/20/2023 6:51 PM Dictation workstation: [id number] [facility] Interpreted By: Mag Santiago, STUDY: CT CHEST ABDOMEN PELVIS W IV CONTRAST; 07/20/2023 5:39 pm INDICATION: Signs/Symptoms:Persisten t vomiting, epigastric pain in the chest.. COMPARISON: Chest x-ray 07/20/2023. ACCESSION NUMBER(S): [id number] ORDERING CLINICIAN: ABIODUN OCHOA TECHNIQUE: Axial CT [...] chest.. COMPARISON: Chest x-ray 07/20/2023. ACCESSION NUMBER(S): [id number] ORDERING CLINICIAN: ABIODUN OCHOA TECHNIQUE: Axial CT [...] Mag Santiago 07/20/2023 6:51 PM Dictation workstation: [id number] [facility] Work Phone: Radiology Study observation (narrative) [facility] Work Phone: CT Chest and Abdomen and Pel vis W contrast IVOrdered By: Mag Santiago on 07-20-[address] [facility] Work Phone: Choriogonadotropin.beta subu niton 07-20-2023 HCG.beta subunit Qn m[IU]/mL Normal <5 [facility] Comment on above: Order Comment: Total HCG measurement is performed using the Jade Saleem Access Immunoassay which detects intact HCG and free beta HCG subunit. This test is not indicated for use as a tumor marker. HCG testing is performed using a different test methodology at [facility] than other [facility]. Direct result comparison should only be made within the same method. Performed By: #### 2 1198-7 #### JIMENA Mark ([id number]) [facility] ([facility]) [address] [id number] Comprehensive metabolic 2000 panelon 07-20-2023 Albumin BCP dye [Mass/Vol] 4.7 g/dL 3.4 - 5.0 g/dL [facility] ALP [Catalytic activity/Vol] 47 U/L 33 - 110 U/L [facility] ALT With P-5'-P [Catalytic activity/Vol] 14 U/L 7 - 45 U/L [facility] Comment on above: Patients treated wit h Sulfasalazine may generate falsely decreased results for ALT. Anion gap [Moles/Vol] 18 mmol/L 10 - 2 0 mmol/L [facility] AST With P-5'-P [Catalytic activity/Vol] 15 U/L 9 - 39 U/L [facility] Bilirubin [Mass/Vol] 0.6 mg/dL 0.0 - 1 .2 mg/dL [facility] Calcium [Mass/Vol] 9.8 mg/dL 8.6 - 10. 3 mg/dL [facility] Chloride [Moles/Vol] 105 mmol/L 98 - 10 7 mmol/L [facility] CO2 [Moles/Vol] 19 mmol/L Low 21 - 32 mmol/L [facility] Creatinine [Mass/Vol] 0.77 mg/dL 0.50 - 1.05 mg/dL [facility] eGFR - PINF [facility] Comment on above: Calculations of lesli mated GFR are performed using the 2020 CKD-EPI Study Refit equation without the race variable for the IDMS-Traceable creatinine methods. https://jasn.asnjournals.org/content//ASN.2020 719660 Glucose [Mass/Vol] 147 mg/dL High 74 - 99 mg/dL [facility] Interpretation and review of laboratory results Abnormal [facility] Potassium [Moles/Vol] 3.8 mmol/L 3.5 - 5.3 mmol/L [facility] Protein [Mass/Vol] 7.3 g/dL 6.4 - 8.2 g/dL [facility] Sodium [Moles/Vol] 138 mmol/L 136 - 145 mmol/L [facility] Urea nitrogen [Mass/Vol] 15 mg/dL 6 - 23 mg/dL [facility] Albumin BCP dye [Mass/Vol] 4.7 g/dL Normal 3.4-5.0 [facility] Comment on above: Performed By: #### 2 4323-8 #### JIMENA Mark ([id number]) [facility] ([facility]) [address] [place] [address] 91385 ALP [Catalytic activity/Vol] 47 U/L Normal 33-110 [facility] Comment on above: Performed By: #### 2 4323-8 #### JIMENA Mark ([id number]) [facility] ([facility]) [address] [place] [address] 79709 ALT With P-5'-P [Catalytic activity/Vol] 14 U/L Normal 7-45 [facility] Comment on above: Result Comment: Edel ents treated with Sulfasalazine may generate falsely decreased results for ALT. Performed By: #### 2 4323-8 #### JIMENA Mark ([id number]) [facility] ([facility]) [address] [place] [address] 35420 Anion gap [Moles/Vol] 18 mmol/L Normal 10-20 [facility] Comment on above: Performed By: #### 2 4323-8 #### JIMENA Mark ([id number]) [facility] ([facility]) [address] [place] [address] 65004 AST With P-5'-P [Catalytic activity/Vol] 15 U/L Normal 9-39 [facility] Comment on above: Performed By: #### 2 4323-8 #### JIMENA Mark ([id number]) [facility] ([facility]) [address] [place] [address] 41899 Bilirubin [Mass/Vol] 0.6 mg/dL Normal 0.0-1.2 [facility] Comment on above: Performed By: #### 2 4323-8 #### JIMENA Mark ([id number]) [facility] ([facility]) [address] [place] [address] 39972 Calcium [Mass/Vol] 9.8 mg/dL Normal 8.6-10.3 [facility] Comment on above: Performed By: #### 2 4323-8 #### JIMENA Mark ([id number]) [facility] ([facility]) [address] [place] [address] 01388 Chloride [Moles/Vol] 105 mmol/L Normal 98-107 [facility] Comment on above: Performed By: #### 2 4323-8 #### JIMENA Mark ([id number]) [facility] ([facility]) [address] [place] [address] 03540 CO2 [Moles/Vol] 19 mmol/L Low 21-[address] [facility] Comment on above: Performed By: #### 2 4323-8 #### JIMENA Mark ([id number]) [facility] ([facility]) [address] [place] [address] 93665 Creatinine [Mass/Vol] 0.77 mg/dL Normal 0.50-1.05 [facility] Comment on above: Performed By: #### 2 4323-8 #### JIMENA Mark ([id number]) [facility] ([facility]) [address] [place] [address] 42932 GFR/1.73 sq M.predicted MDRD (S/P/Bld) [Vol rate/Area] mL/min/{1.73_m2} Normal >60 [facility] Comment on above: Result Comment: Calc ulations of estimated GFR are performed using the 2020 CKD-EPI Study Refit equation without the race variable for the IDMS-Traceable creatinine methods. https://jasn.asnjournals.org/content/early//ASN.2020 583707 Performed By: #### 2 4323-8 #### JIMENA Mark ([id number]) [facility] ([facility]) [address] [place] [address] 69874 Glucose [Mass/Vol] 147 mg/dL High 74-99 [facility] Comment on above: Performed By: #### 2 4323-8 #### JIMENA Mark ([id number]) [facility] ([facility]) [address] [place] [address] 24022 Potassium [Moles/Vol] 3.8 mmol/L Normal 3.5-5.3 [facility] Comment on above: Performed By: #### 2 4323-8 #### JIMENA Mark ([id number]) [facility] ([facility]) [address] [place] [address] Protein [Mass/Vol] 7.3 g/dL Normal 6.4-8.2 [facility] Comment on above: Performed By: #### 2 4323-8 #### JIMENA Mark ([id number]) [facility] ([facility]) [address] [place] [address] 77861 Sodium [Moles/Vol] 138 mmol/L Normal 136-145 [facility] Comment on above: Performed By: #### 2 4323-8 #### JIMENA Mark ([id number]) [facility] ([facility]) [address] [place] [address] 51426 Urea nitrogen [Mass/Vol] 15 mg/dL Normal 6-23 [facility] Comment on above: Performed By: #### 2 4323-8 #### JIMENA Mark ([id number]) [facility] ([facility]) [address] [place] [address] 22203 DRUG SCREEN,URINEon 07-20-19 24 Amphetamines Screen Ql (U) Negative Normal Presumptive Negative [facility] Comment on above: Order Comment: Drug screen results are presumptive and should not be used to assess compliance with prescribed medication. Contact the performing [facility] laboratory to add-on definitive confirmatory testing if [...] By: #### Kobi RUG3 #### JIMENA Mark ([id number]) [facility] ([facility]) [address] [place] [address] Barbiturates Screen Ql (U) Negative Normal Presumptive Negative [facility] Comment on above: Order Comment: Drug screen results are presumptive and should not be used to assess compliance with prescribed medication. Contact the performing [facility] laboratory to add-on definitive confirmatory testing if [...] By: #### Kobi RUG3 #### JIMENA Mark ([id number]) [facility] ([facility]) [address] [place] [address] Benzodiazepines Ql (U) Negative Normal Presu mptive Negative [facility] Comment on above: Order Comment: Drug screen results are presumptive and should not be used to assess compliance with prescribed medication. Contact the performing [facility] laboratory to add-on definitive confirmatory testing if [...] By: #### D RUG3 #### JIMENA Mark ([id number]) [facility] ([facility]) [address] [place] [address] 75215 Benzoylecgonine Screen Ql (U) Negative Normal Presumptive Negative [facility] Comment on above: Order Comment: Drug screen results are presumptive and should not be used to assess compliance with prescribed medication. Contact the performing [facility] laboratory to add-on definitive confirmatory testing if [...] By: #### D RUG3 #### JIMENA Mark ([id number]) [facility] ([facility]) [address] [place] [address] 89020 Cannabinoids Screen Ql (U) Positive Abnormal Presumptive Negative [facility] Comment on above: Order Comment: Drug screen results are presumptive and should not be used to assess compliance with prescribed medication. Contact the performing [facility] laboratory to add-on definitive confirmatory testing if [...] By: #### D RUG3 #### JIMENA Mark ([id number]) [facility] ([facility]) [address] [place] [address] fentaNYL+Norfentanyl Screen Ql (U) Negative Normal Presumptive Negative [facility] Comment on above: Order Comment: Drug screen results are presumptive and should not be used to assess compliance with prescribed medication. Contact the performing [facility] laboratory to add-on definitive confirmatory testing if [...] By: #### D RUG3 #### JIMENA Mark ([id number]) [facility] ([facility] [address] [place] [address] Methadone Screen Ql (U) Negative Normal Pres umptive Negative [facility] Comment on above: Order Comment: Drug screen results are presumptive and should not be used to assess compliance with prescribed medication. Contact the performing [facility] laboratory to add-on definitive confirmatory testing if [...] CUTO FF LEVEL: 150 NG/ML The metabolite F-uoiin-hkfucvtheccaux (LAAM) is not detected by this method in concentrations that would be found in the urine of patients on LAAM therapy. Performed By: #### D RUG3 #### JIMENA Mark ([id number]) [facility] ([facility]) [address] [place] [address] Opiates Screen Ql (U) Negative Normal Presum ptive Negative [facility] Comment on above: Order Comment: Drug screen results are presumptive and should not be used to assess compliance with prescribed medication. Contact the performing [facility] laboratory to add-on definitive confirmatory testing if [...] By: #### Kobi BRIONES3 #### JIMENA Mark ([id number]) [facility] ([facility]) [address] [place] [address] oxyCODONE+oxyMORphone Screen Ql (U) Negative Normal Presumptive Negative [facility] Comment on above: Order Comment: Drug screen results are presumptive and should not be used to assess compliance with prescribed medication. Contact the performing [facility] laboratory to add-on definitive confirmatory testing if [...] By: #### Kobi RUG3 #### JIMENA Mark ([id number]) [facility] ([facility]) [address] [place] [address] Phencyclidine Ql (U) Negative Normal Presump tive Negative [facility] Comment on above: Order Comment: Drug screen results are presumptive and should not be used to assess compliance with prescribed medication. Contact the performing [facility] laboratory to add-on definitive confirmatory testing if [...] dextromethorphan. Performed By: #### D ANSELMO3 #### JMIENA Mark ([id number]) [facility] ([facility]) [address] [place] [address] Drug Screen, Urineon 024 Amphetamines Screen Ql (U) Negative Presumptive Negative [facility] Comment on above: CUTOFF LEVEL: 500 NG /ML Cross-reactivity has been reported with high concentrations of the following drugs: buproprion, chloroquine, chlorpromazine, ephedrine, mephentermine, fenfluramine, phentermine, phenylpropanolamine, pseudoephedrine, and propranolol. Barbiturates Screen Ql (U) Negative Presumptive Negative [facility] Comment on above: CUTOFF LEVEL: 200 NG /ML Benzodiazepines Ql (U) Negative Presu mptive Negative [facility] Comment on above: CUTOFF LEVEL: 200 NG /ML Benzoylecgonine Screen Ql (U) Negative Presumptive Negative [facility] Comment on above: CUTOFF LEVEL: 150 NG /ML Cannabinoids Screen Ql (U) Positive Abnormal Presumptive Negative [facility] Comment on above: CUTOFF LEVEL: 50 NG/ ML fentaNYL+Norfentanyl Screen Ql (U) Negative Presumptive Negative [facility] Comment on above: CUTOFF LEVEL: 5 NG/M L Interpretation and review of laboratory results Abnormal [facility] Methadone Screen Ql (U) Negative Pres umptive Negative [facility] Comment on above: CUTOFF LEVEL: 150 NG /ML The metabolite P-ithpl-rrjpiqyeoxzfiz (LAAM) is not detected by this method in concentrations that would be found in the urine of patients on LAAM therapy. Opiates Screen Ql (U) Negative Presum ptive Negative [facility] Comment on above: CUTOFF LEVEL: 300 NG /ML The opiate screen does not detect fentanyl, meperidine, or tramadol. Oxycodone is not consistently detected (refer to Oxycodone Screen, Urine result). oxyCODONE+oxyMORphone Screen Ql (U) Negative Presumptive Negative [facility] Comment on above: CUTOFF LEVEL: 100 NG /ML This test will accurately detect both oxycodone and oxymorphone. Phencyclidine Ql (U) Negative Presump tive Negative [facility] Comment on above: CUTOFF LEVEL: 25 NG/ ML Cross-reactivity has been reported with dextromethorphan. Drug screen results are presumptive and should not be used to assess compliance with prescribed medication. Contact the performing [facility] laboratory to add-on definitive confirmatory testing if [...] be directed to the laboratory medical directors. [facility] ECG 12-LEADon 07-20-2023 ECG 12-LEAD Ventricular Rate 68 Atrial Rate 67 P-R Interval 110 QRS Duration 126 Q-T Interval 419 QTC Calculation(Bazett) 446 P [place] 82 R [place] 77 T [place] 67 QRS Count 11 Q Onset 249 T Offset 459 QTC Fredericia 437 Diagnosis Sinus rhythm Borderline short IN interval Nonspecific intraventricular conduction delay ST elev, probable normal early repol pattern See ED provider note for full interpretation and clinical correlation Confirmed by Lynsey Luna ([id number]) on 07/28/2023 12:23:14 PM Normal [facility] HCG.beta subunit Qnon 2023 Interpretation and review of laboratory results Normal [facility] Total HCG measuremen t is performed using the Jade Saleem Access Immunoassay which detects intact HCG and free beta HCG subunit. This test is not indicated for use as a tumor marker. HCG testing is performed using a different test methodology at [facility] than other [facility]. Direct result comparison should only be made within the same method. [facility] Human Chorionic Gonadotropin , Serum Quantitativeon 07-20-2023 HCG.beta subunit Qn NINF [facility] Lactateon 07-20-2023 Lactate [Moles/Vol] 1.4 mmol/L 0.4 - 2. 0 mmol/L [facility] Lactate [Moles/Vol] 1.4 mmol/L Normal 0.4-2.0 [facility] Comment on above: Order Comment: Venip uncture immediately after or during the administration of Metamizole may lead to falsely low results. Testing should be performed immediately prior to Metamizole dosing. Performed By: #### 2 524-7 #### JIMENA Mark ([id number]) [facility] ([facility]) [address] [place] [address] Lactate [Moles/Vol] 2.2 mmol/L High 0.4 - 2. 0 mmol/L [facility] Lactate [Moles/Vol] 2.2 mmol/L High 0.4-2.0 [facility] Comment on above: Order Comment: Venip uncture immediately after or during the administration of Metamizole may lead to falsely low results. Testing should be performed immediately prior to Metamizole dosing. Performed By: #### 2 524-7 #### JIMENA Mark ([id number]) [facility] ([facility]) [address] [place] [address] Lactate [Moles/Vol]on 2023 Interpretation and review of laboratory results Normal [facility] Venipuncture immedia tely after or during the administration of Metamizole may lead to falsely low results. Testing should be performed immediately prior to Metamizole dosing. [facility] Interpretation and review of laboratory results Abnormal [facility] Venipuncture immedia tely after or during the administration of Metamizole may lead to falsely low results. Testing should be performed immediately prior to Metamizole dosing. [facility] Lipaseon 07-20-2023 Lipase [Catalytic activity/Vol] 10 U/L U/L [facility] Lipase [Catalytic activity/V ol]on 07-20-2023 Interpretation and review of laboratory results Normal [facility] Venipuncture immedia tely after or during the administration of Metamizole may lead to falsely low results. Testing should be performed immediately prior to Metamizole dosing. [facility] Triacylglycerol lipaseon Lipase [Catalytic activity/Vol] 10 U/L Normal [facility] Comment on above: Order Comment: Venip uncture immediately after or during the administration of Metamizole may lead to falsely low results. Testing should be performed immediately prior to Metamizole dosing. Performed By: #### 3 040-3 #### JIMENA Mark ([id number]) [facility] ([facility]) [address] [place] [address] Tropinin I.cardiac panel Hig h sensitivity methodon 07-20-2023 Interpretation and review of laboratory results Normal [facility] Less than 99th percentile of [...] performed using a different testing methodology at [facility] than at other [facility]. Direct result comparisons should only be made within the same method. [facility] Troponin I, High Sensitivity on 07-20-2023 Tropinin I.cardiac panel High sensitivity method ng/L 0 - 13 ng/L [facility] Troponin I.cardiac panelon 0 07-20-2023 Tropinin I.cardiac panel High sensitivity method <3 Normal 0-13 [facility] Comment on above: Order Comment: Venip uncture immediately after or during the administration of Metamizole may lead to falsely low results. Testing should be performed immediately prior to Metamizole dosing. Performed By: #### 2 524-7 #### JIMENA Mark ([id number]) [facility] ([facility]) [address] [place] [address] Urinalysis complete W Reflex Culture panel (U)on 07-20-2023 Appearance (U) Hazy Abnormal Clear [facility] Bilirubin (U) [Mass/Vol] Negative NEGATIVE [facility] Color (U) Yellow Straw, Yellow [facility] Epithelial cells.squamous Auto (Urine sed) [#/Area] 1-9 (SPARSE) Reference range not established. /HPF [facility] Glucose Auto test strip (U) [Mass/Vol] Negative NEGATIVE mg/dL [facility] Interpretation and review of laboratory results Abnormal [facility] Ketones (U) [Mass/Vol] 80 (2+) Abnormal NEGAT JAMES mg/dL [facility] Leukocyte esterase Auto test strip Ql (U) Negative NEGATIVE [facility] Mucus Auto (Urine sed) [#/Area] 4+ Reference range not established. /LPF [facility] Nitrite Auto test strip Ql (U) Negative NEGATIVE [facility] pH (U) 9.0 [pH] Abnormal 5.0, 5.5, 6.0, 6.5, 7.0, 7.5, 8.[address] [facility] Protein (U) [Mass/Vol] >=500 (3+) Abnormal NEGAT JAMES mg/dL [facility] RBC (U) [#/Vol] Negative NEGATIVE [facility] RBC Auto (Urine sed) [#/Area] 1-2 NONE, 1-2, 3-5 /HPF [facility] Specific gravity (U) [Rel density] 1.025 1.005 - 1.[address] [facility] Urobilinogen (U) [Mass/Vol] mg/dL NINF - 2.0 mg/dL [facility] WBC Auto (Urine sed) [#/Area] 1-5 1-5, NONE /HPF [facility] Yeast.budding Computer assisted (U) [#/Area] PRESENT Abnormal NONE /HPF [facility] Appearance (U) Hazy Normal Clear [facility] Comment on above: Performed By: #### 5 8077-9 #### JIMENA Mark ([id number]) [facility] ([facility]) [address] [place] [address] Bilirubin (U) [Mass/Vol] Negative Normal NEGATIVE [facility] Comment on above: Performed By: #### 5 8077-9 #### JIMENA Mark ([id number]) [facility] ([facility]) [address] [place] [address] Color (U) Yellow Normal Straw, Yellow [facility] Comment on above: Performed By: #### 5 8077-9 #### JIMENA Mark ([id number]) [facility] ([facility]) [address] [place] [address] Epithelial cells.squamous Auto (Urine sed) [#/Area] 1-9 (SPARSE) Normal Reference range not established. [facility] Comment on above: Performed By: #### 5 8077-9 #### JIMENA Mark ([id number]) [facility] ([facility]) [address] [place] [address] Glucose Auto test strip (U) [Mass/Vol] Negative Normal NEGATIVE [facility] Comment on above: Performed By: #### 5 8077-9 #### JIMENA Mark ([id number]) [facility] ([facility]) [address] [place] [address] Ketones (U) [Mass/Vol] 80 (2+) Abnormal NEGATIVE [facility] Comment on above: Performed By: #### 5 8077-9 #### JIMENA Mark ([id number]) [facility] ([facility]) [address] [place] [address] Leukocyte esterase Auto test strip Ql (U) Negative Normal NEGATIVE [facility] Comment on above: Performed By: #### 5 8077-9 #### JIMENA Mark ([id number]) [facility] ([facility]) [address] [place] [address] Mucus Auto (Urine sed) [#/Area] 4+ /LPF Normal Reference range not established. [facility] Comment on above: Performed By: #### 5 8077-9 #### JIMENA Mark ([id number]) [facility] ([facility]) [address] [place] [address] Nitrite Auto test strip Ql (U) Negative Normal NEGATIVE [facility] Comment on above: Performed By: #### 5 8077-9 #### JIMENA Mark ([id number]) [facility] ([facility]) [address] [place] [address] pH (U) 9.0 [pH] Normal 5.0, 5.5, 6.0, 6.5, 7.0, 7.5, 8.0 [facility] Comment on above: Performed By: #### 5 8077-9 #### JIMENA Mark ([id number]) [facility] ([facility]) [address] [place] [address] Protein (U) [Mass/Vol] >=500 (3+) Normal NEGATIVE [facility] Comment on above: Performed By: #### 5 8077-9 #### JIMENA Mark ([id number]) [facility] ([facility]) [address] [place] [address] RBC (U) [#/Vol] Negative Normal NEGATIVE [facility] Comment on above: Performed By: #### 5 8077-9 #### JIMENA Mark ([id number]) [facility] ([facility]) [address] [place] [address] RBC Auto (Urine sed) [#/Area] 1-2 Normal NONE, 1-2, 3-5 [facility] Comment on above: Performed By: #### 5 8077-9 #### JIMENA Mark ([id number]) [facility] ([facility]) [address] [place] [address] Specific gravity (U) [Rel density] 1.025 Normal 1.005-1.035 [facility] Comment on above: Performed By: #### 5 8077-9 #### JIMENA Mark ([id number]) [facility] ([facility]) [address] [place] [address] Urobilinogen (U) [Mass/Vol] mg/dL Normal <2.0 [facility] Comment on above: Performed By: #### 5 8077-9 #### JIMENA Mark ([id number]) [facility] ([facility]) [address] [place] [address] WBC Auto (Urine sed) [#/Area] 1-5 Normal 1-5, NONE [facility] Comment on above: Performed By: #### 5 8077-9 #### JIMENA Mark ([id number]) [facility] ([facility]) [address] [place] [address] Yeast.budding Computer assisted (U) [#/Area] PRESENT Abnormal NONE [facility] Comment on above: Performed By: #### 5 8077-9 #### JIMENA Mark ([id number]) [facility] ([facility]) [address] [place] [address] XR CHEST 1 VIEWon 07-20-2023 XR CHEST 1 VIEW Interpreted By: Salina Hall, STUDY: XR CHEST 1 VIEW; 07/20/2023 4:05 pm INDICATION: Signs/Symptoms:cp. COMPARISON: None. ACCESSION NUMBER(S): [id number] ORDERING CLINICIAN: ABIODUN OCHOA FINDINGS: Heart is normal in size. There is no consolidation or pleural fluid. The mediastinum and bones are unremarkable. There are bilateral nipple shadows. COMPARISON OF FINDING: IMPRESSION: No acute cardiopulmonary disease. MACRO: none Signed by: Salina Stanton 07/20/2023 4:17 PM Dictation workstation: [id number] Normal [facility] XR Chest Single viewon 07-19 No acute cardiopulmo nary disease. MACRO: none Signed by: Salina Stanton 07/20/2023 4:17 PM Dictation workstation: [id number] MMODAL Interpreted By: Salina Hall, STUDY: XR CHEST 1 VIEW; 07/20/2023 4:05 pm INDICATION: Signs/Symptoms:cp. COMPARISON: None. ACCESSION NUMBER(S): [id number] ORDERING CLINICIAN: ABIODUN OCHOA FINDINGS: Heart is normal in size. There is no consolidation or pleural fluid. The mediastinum and bones are unremarkable. There are bilateral nipple shadows. COMPARISON OF FINDING: [facility] MMODAL Salina Stanton MD - 07/20/2023 Interpreted By: Salina Stanton, STUDY: XR CHEST 1 VIEW; 07/20/2023 4:05 pm INDICATION: Signs/Symptoms:cp. COMPARISON: None. ACCESSION NUMBER(S): [id number] ORDERING CLINICIAN: ABIODUN OCHOA FINDINGS: Heart is normal in size. There is no consolidation or pleural fluid. The mediastinum and bones are unremarkable. There are bilateral nipple shadows. COMPARISON OF FINDING: IMPRESSION: No acute cardiopulmonary disease. MACRO: none Signed by: Salina Stanton 07/20/2023 4:17 PM Dictation workstation: [id number] [facility] Work Phone: Radiology Study observation (narrative) [facility] Work Phone: XR Chest Single viewOrdered By: Salina Stanton on 07-20-[address] [facility] Work Phone: Cytology Cervical or vaginal smear or scraping studyon 03-19-2023 [facility] XR HYSTEROSALPINGOGRAMon XR HYSTEROSALPINGOGRAM * [...] nondilated tubes. No spillage. IMPRESSION: Please see TAPE RECORDER REPAIRER report for assessment of real-time findings. Linoleum Mechanic: [email or web address] Transcribe Date/Time: Jan 20 2021 1:37P Dictated by : DAYANNA LEROY MD This examination was interpreted and the report reviewed and electronically signed by: DAYANNA LEROY MD on Jan 20 2021 1:45PM EST [id number] Normal [facility] URon 03-22-2020 , QUAL Negative Normal NEGATIVE [facility] Comment on above: Performed By: #### P REGU #### [facility] [address] [id number] Juany Mccarthy Covid-19 PCR [facility]on 02-02 Covid-19 PCR DETECTED Abnormal NOT DETECTED [facility] Comment on above: Result Comment: This test is not yet approved or cleared by the [place] FDA. When there are no FDA-approved or cleared tests available, and other criteria are met, FDA can make tests available under an emergency access mechanism called an Emergency Use Authorization (EUA). The EUA for this test is supported by the [place] of Health and Human Service's (HHS's) declaration [...] By: #### C VDTB #### [facility] [address] [address] Juany Mccarthy EUA Statement SEE BELOW Normal [facility] Comment on above: Result Comment: This test is not yet approved or cleared by the [place] FDA. When there are no FDA-approved or cleared tests available, and other criteria are met, FDA can make tests available under an emergency access mechanism called an Emergency Use Authorization (EUA). The EUA for this test is supported by the [place] of Health and Human Service?s (HHS?s) declaration [...] consistent with SARS-CoV-2. Performed By: #### C [facility] #### [facility] [address] [place] [address] Juany Mccarthy Vital Signs Date Time Vital Sign Value Performing Clinician Facility 12-03-2023 08:43-0400 Body height 167.6 cm [employer] Work Phone: [facility] 12-03-2023 08:43-0400 Body mass index (BMI) [Ratio] 17.59 kg/m2 [employer] Work Phone: [facility] 12-03-2023 08:43-0400 Body weight 49.44 kg [employer] Work Phone: [facility] 12-03-2023 08:43-0400 Diastolic blood pressure 68 mm[Hg] [employer] Work Phone: [facility] 12-03-2023 08:43-0400 Systolic blood pressure 102 mm[Hg] [email or web address] Work Phone: [facility] 10-15-2023 10:05-0400 Blood Pressure Location [employer] [facility] 10-15-2023 10:05-0400 Diastolic blood pressure 74 mm[Hg] [employer] [facility] 10-15-2023 10:05-0400 Heart rate 66 /min [employer] [facility] 10-15-2023 10:05-0400 Mean blood pressure 87 mm[Hg] [employer] [facility] 10-15-2023 10:05-0400 Respiratory rate 19 /min Mohamad Mouchli [facility] 10-15-2023 10:05-0400 SaO2% (BldA) [Mass fraction] 97 % Mohamad Mouchli [facility] 10-15-2023 10:05-0400 Systolic blood pressure 112 mm[Hg] Mohamad Mouchli [facility] 10-15-2023 09:55-0400 Blood Pressure Location Mohamad Mouchli [facility] 10-15-2023 09:55-0400 Diastolic blood pressure 57 mm[Hg] Mohamad Mouchli [facility] 10-15-2023 09:55-0400 Heart rate 57 /min Mohamad Mouchli [facility] 10-15-2023 09:55-0400 Mean blood pressure 71 mm[Hg] Mohamad Mouchli [facility] 10-15-2023 09:55-0400 Respiratory rate 19 /min Mohamad Mouchli [facility] 10-15-2023 09:55-0400 SaO2% (BldA) [Mass fraction] 100 % Mohamad Mouchli [facility] 10-15-2023 09:55-0400 Systolic blood pressure 100 mm[Hg] Mohamad Mouchli [facility] 10-15-2023 09:50-0400 Blood Pressure Location Mohamad Mouchli [facility] 10-15-2023 09:50-0400 Diastolic blood pressure 73 mm[Hg] Mohamad Mouchli [facility] 10-15-2023 09:50-0400 Heart rate 90 /min Mohamad Mouchli [facility] 10-15-2023 09:50-0400 Mean blood pressure 89 mm[Hg] Mohamad Mouchli [facility] 10-15-2023 09:50-0400 Respiratory rate 13 /min Mohamad Mouchli [facility] 10-15-2023 09:50-0400 SaO2% (BldA) [Mass fraction] 100 % Mohamad Mouchli [facility] 10-15-2023 09:50-0400 Systolic blood pressure 122 mm[Hg] Mohamad Mouchli [facility] 10-15-2023 09:41-0400 Body temperature 98.06 [degF] Mohamad Mouchli [facility] 10-15-2023 09:30-0400 Respiratory rate 10 /min Mohamad Mouchli [facility] 10-15-2023 09:25-0400 Respiratory rate 10 /min Mohamad Mouchli [facility] 10-15-2023 09:24-0400 Respiratory rate 10 /min Mohamad Mouchli [facility] 10-15-2023 07:13-0400 Body temperature 98.42 [degF] Mohamad Mouchli [facility] 09-13-2023 14:52-0400 Blood Pressure Location Mohamad Mouchli [facility] 09-13-2023 14:52-0400 Diastolic blood pressure 82 mm[Hg] Mohamad Mouchli [facility] 09-13-2023 14:52-0400 Heart rate 78 /min Jeromed Clifforduchli [facility] 09-13-2023 14:52-0400 Respiratory rate 16 /min Jeromed Joseli [facility] 09-13-2023 14:52-0400 Systolic blood pressure 110 mm[Hg] Jeromed Joseli [facility] 07-20-2023 18:58-0400 Body temperature 98.49 [degF] Gwen Danielson MD Work Phone: [facility] 07-20-2023 18:58-0400 Diastolic blood pressure 83 mm[Hg] Gwen Danielson MD Work Phone: [facility] 07-20-2023 18:58-0400 Heart rate 52 /min Gwen Danielson MD Work Phone: [facility] 07-20-2023 18:58-0400 Respiratory rate 18 /min Gwen Danielson MD Work Phone: [facility] 07-20-2023 18:58-0400 SaO2% (BldA) [Mass fraction] 98 % Gwen Danielson MD Work Phone: [facility] 07-20-2023 18:58-0400 Systolic blood pressure 135 mm[Hg] Gwen Danielson MD Work Phone: [facility] 07-20-2023 13:40-0400 Body height 167.6 cm Gwen Danielson MD Work Phone: [facility] 07-20-2023 13:40-0400 Body mass index (BMI) [Ratio] 19.05 kg/m2 Gwen Danielson MD Work Phone: [facility] 07-20-2023 13:40-0400 Body weight 53.52 kg Gwen Danielson MD Work Phone: [facility] Encounters Encounter Date Encounter Type [...] 04-08-2024 End: 04-08-2024 ambulatory MD JADE LEDBETTER Facility:[facility] Start: 04-08-2024 End: 04-08-2024 Patient encounter procedure JADE LEDBETTER [facility] Start: 04-08-2024 End: 04-08-2024 Clinisync Result [...] Start: 02-18-2024 End: 02-18-2024 ambulatory Carolyne Collazo Facility:[facility] Start: 02-18-2024 End: 02-18-2024 Patient encounter procedure Carolyne Collazo [facility] Start: 02-18-2024 End: 02-18-2024 Clinisync Result [...] Start: 10-15-2023 End: 10-15-2023 ambulatory Alex Knutson Facility:[facility] Start: 10-15-2023 End: 10-15-2023 Patient encounter procedure Alex Knutson [facility] Start: 09-13-2023 End: 09-13-2023 ambulatory Alex Knutson Facility:[facility] Start: 09-13-2023 End: 09-13-2023 Patient encounter procedure Alex Knutson [facility] Start: 2023 ambulatory Alex Knutson Facilit y:[facility] Start: 08-23-2023 End: 08-23-2023 ambulatory CAROLYNE COLLAZO Not Available Start: 08-14-2023 Telephone encounter Karina Hand MD Work Phone: Endocrinology Comment on above: Results Start: 07-26-2023 End: 07-26-2023 ambulatory CAROLYNE COLLAZO Not Available Start: 07-20-2023 End: 07-20-2023 Emergency department patient visit Gwen Danielson MD Work Phone: [facility] Comment on above: Nausea and vomiting, unspecified vomiting type (Primary Dx); Gastritis, presence of bleeding unspecified, unspecified chronicity, unspecified gastritis type Start: 06-13-2023 End: 06-13-2023 [facility] Karina Vincent MD Work Phone: Endocrinology Comment on above: Prolactinoma (HCC) ( Primary Dx); 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HCC); Elevated prolactin level Start: 05-24-2023 End: 05-24-2023 ambulatory CAROLYNE COLLAZO Not Available Start: 03-19-2023 Patient encounter procedure Uriel Halina DO Work Phone: [facility] Start: 03-22-2020 End: 03-22-2020 Patient encounter procedure YASMIN MARTINEZ Facility:[facility] Start: 03-03-2020 [facility]counter for [facility]procedural laboratory [facility] Start: 02-25-2020 [facility] Start: 02-23-2020 End: 02-23-2020 Patient encounter procedure YASMIN MARTINEZ Facility:[facility] Start: 02-20-2020 End: 02-20-2020 Patient encounter procedure YASMIN MARTINEZ Facility:[facility] Start: 02-16-2020 End: 02-17-2020 Patient encounter procedure YASMIN MARTINEZ Facility:[facility] Encounter for other [facility]cedural [facility] Encounter for preprocedural laboratory examination [facility] Procedures Date Procedure Procedure Detail Performing Clinician Start: 04-16-2024 US PELVIS TRANSVAGINAL Generic External Data Provider Start: 04-14-2024 US PELVIS TRANSVAGINAL Generic External Data Provider Start: 04-08-2024 US PELVIS TRANSVAGINAL Generic External Data Provider Start: 03-14-2024 MLR HEMOGLOBIN A1C Generic External Data Provider Start: 02-18-2024 [facility] CBC W/ AUTO DIFF Carolyne Collazo [...] 2) Zoste r Vaccines (1 of 2) [facility] Start: 09-24-2024 End: 09-24-2024 Patient encounter procedure 09/24/2024 3:00 PM EDT Office Visit [facility] [address] [place] [address] Uriel Meade, DO [address] [place], [place] [id number] [facility] Start: 03-26-2024 End: 03-26-2024 Patient encounter procedure 03/26/2024 1:00 PM EST Office [facility] [address] [place] [address] Uriel Meade, DO [address], [place] [id number] [facility] Start: 03-24-2024 End: 03-24-2024 Patient encounter procedure 03/24/2024 4:00 PM EST Office Visit [facility] [address] [place] [address] Uriel Meade, DO [address], [place] [id number] [facility] Start: 02-15-2024 End: 02-15-2024 Telemedicine consultation with patient 02/15/2024 10:00 AM EST Telemedicine [facility] [address] [place] [address] Carol Magaña PA [address] [place] [address] [facility] Start: 11-22-2023 End: 11-22-2023 Patient encounter procedure 11/22/2023 4:00 PM EDT Office Visit [facility] [address] [place] [id number] Carolyne Collazo MD [address] [place] [address] [facility] Start: 11-04-2023 Influenza vaccination [facility] Start: 07-11-2023 End: 10-10-2023 Corticotropin [Mass/volume] in Plasma ACTH BLD Lab Routine 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HCC) Expected: 07/11/2023, Expires: 10/10/2023 [facility] Comment on above: Expected: 07/11/2023 , Expires: 10/10/2023 Start: 07-11-2023 End: 10-10-2023 Cortisol [Mass/volume] in Serum or Plasma CORTISOL, SERUM Lab Routine 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HCC) Expected: 07/11/2023, Expires: 10/10/2023 [facility] Comment on above: Expected: 07/11/2023 , Expires: 10/10/2023 Start: 07-11-2023 End: 10-10-2023 Estradiol (E2) [Mass/volume] in Serum or Plasma ESTRADIOL-17B BLD Lab Routine 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HCC) Expected: 07/11/2023, Expires: 10/10/2023 [facility] Comment on above: Expected: 07/11/2023 , Expires: 10/10/2023 Start: 07-11-2023 End: 10-10-2023 Follitropin [Units/volume] in Serum or Plasma FOLLICLE STIMULATING HORMONE Lab Routine 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[facility]) Expected: 07/11/2023, Expires: 10/10/2023 [facility] Comment on above: Expected: 07/11/2023 , Expires: 10/10/2023 Start: 07-11-2023 End: 10-10-2023 INSULIN LIK GR FAC I INSULIN LIK GR FAC I Lab Routine 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[facility]) Expected: 07/11/2023, Expires: 10/10/2023 [facility] Comment on above: Expected: 07/11/2023 , Expires: 10/10/2023 Start: 07-11-2023 End: 10-10-2023 Lutropin [Units/volume] in Serum or Plasma LUTEINIZING HORMONE Lab Routine 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[facility]) Expected: 07/11/2023, Expires: 10/10/2023 [facility] Comment on above: Expected: 07/11/2023 , Expires: 10/10/2023 Start: 07-11-2023 End: 08-09-2024 MR Pituitary and Sella turcica WO and W contrast IV MRI PITUITARY WO/W IVCON Radiology Routine 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[facility]) Expected: 07/11/2023, Expires: 08/09/2024 [facility] Work Phone: Comment on above: Expected: 07/11/2023 , Expires: 08/09/2024 Start: 07-11-2023 End: 10-10-2023 Prolactin [Mass/volume] in Serum or Plasma PROLACTIN Lab Routine 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[facility]) Expected: 07/11/2023, Expires: 10/10/2023 [facility] Comment on above: Expected: 07/11/2023 , Expires: 10/10/2023 Start: 07-11-2023 End: 10-10-2023 Somatostatin [Mass/volume] in Plasma GROWTH HORMONE Lab Routine 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[facility]) Expected: 07/11/2023, Expires: 10/10/2023 [facility] Comment on above: Expected: 07/11/2023 , Expires: 10/10/2023 Start: 07-11-2023 End: 10-10-2023 Thyrotropin [Units/volume] in Serum or Plasma THYROID STIMULATING HORMONE Lab Routine 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[facility]) Expected: 07/11/2023, Expires: 10/10/2023 [facility] Comment on above: Expected: 07/11/2023 , Expires: 10/10/2023 Start: 07-11-2023 End: 10-10-2023 Thyroxine (T4) free [Mass/volume] in Serum or Plasma T4 FREE/FREE THYROXINE Lab Routine 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HCC) Expected: 07/11/2023, Expires: 10/10/2023 [facility] Comment on above: Expected: 07/11/2023 , Expires: 10/10/2023 Start: 03-05-2023 Behavioral Health Screening Behavioral Health Screening [facility] Start: 11-03-2022 Covid-19 Vaccine () Covid-19 Vaccine () [facility] Start: 05-29-2018 DTaP/Tdap/Td Vaccine s (3 - Td or Tdap) DTaP/Tdap/Td Vaccines (3 - Td or Tdap) [facility] Start: 05-29-2018 Urine microalbumin profile DTaP,Tdap,Td Vaccine (3 - Td or Tdap) [facility] Start: 08-30-2015 Screening for malign ant neoplasm of cervix [facility] Start: 07-13-2014 Hepatitis B Vaccine (3 of 3 - 19+ 3-dose series) Hepatitis B Vaccine (3 of 3 - 19+ 3-dose series) [facility] Start: 07-13-2014 Hepatitis B Vaccines (3 of 3 - 19+ 3-dose series) Hepatitis B Vaccines (3 of 3 - 19+ 3-dose series) [facility] Start: 05-12-2014 Hepatitis A Vaccines (2 of 2 - 2-dose series) Hepatitis A Vaccines (2 of 2 - 2-dose series) [facility] Start: 2012 Hepatitis C screening Hepatitis C Sc reening [facility] Start: 2012 HIV screening HIV Screening [facility] Start: 05-18-2010 Varicella vaccination Varicell a Vaccines (2 of 2 - 13+ 2-dose series) [facility] Start: 2000 Pneumococcal Vaccine : Pediatrics (0 to 5 Years) and At-Risk Patients (6 to 64 Years) (1 of 2 - PCV) Pneumococcal Vaccine: Pediatrics (0 to 5 Years) and At-Risk Patients (6 to 64 Years) (1 of 2 - PCV) [facility] Start: 07-06-1999 IPV Vaccines (2 of 3 - 4-dose series) IPV Vaccines (2 of 3 - 4-dose series) [facility] Start: 1994 HIV screening HIV Screening [facility] Start: 1994 Lipid panel Lipid Panel [facility] Start: 1994 Yearly Adult Physical Yearly Adult P hysical [facility] ECG 12 lead ECG 12 lead ECG STAT 07/20/2023 2:57 PM EDT [facility] Work Phone: End: 07-20-2023 Extra Urine Doran Tube [facility] Work Phone: Comment on above: Once for 1 Occurrenc es starting 07/20/2023 until 07/20/2023 End: 07-20-2023 Urinalysis complete W Reflex Culture panel - Urine [facility] Service Area Work Phone: Comment on above: Once (Lab) for 1 Occ urrences starting 07/20/2023 until 07/20/2023 Immunizations Immunization Date Immunization Notes Care Provider Felicitas chase 12-06-2015 influenza, injectabl e, quadrivalent, preservative free Uriel Meade DO Work Phone: [facility] 12-06-2015 influenza virus vacc ine, unspecified formulation Karina Vincent MD Work Phone: [facility] 05-18-2014 hepatitis B vaccine, adult dosage Alex Knutson [facility] 03-30-2014 hepatitis B vaccine, adult dosage Alex Knutson [facility] 11-12-2013 hepatitis A vaccine, pediatric/adolescent dosage, 2 dose schedule Uriel Meaed DO Work Phone: [facility] 11-12-2013 hepatitis A vaccine, unspecified formulation Alex Knutson [facility] 11-12-2013 hepatitis B vaccine, pediatric or pediatric/adolescent dosage Mohamad Mouchli [facility] 11-12-2013 hepatitis A and hepatitis B vaccine Gwen Danielson MD Work Phone: [facility] Work Phone: 12-31-2012 influenza virus vacc ine, whole virus Uriel Palomareso DO Work Phone: [facility] 12-31-2012 influenza, whole Mohamad Rosa chli [facility] 12-14-2012 measles, mumps and rubella virus vaccine Carolyne Collazo [facility] Comment on above: Reason for Medicatio n: Other (see comment) 04-20-2010 hepatitis A vaccine, pediatric/adolescent dosage, 2 dose schedule Uriel Meade DO Work Phone: [facility] 04-20-2010 hepatitis A vaccine, unspecified formulation Mohjyotid Mohelena [facility] 04-20-2010 varicella virus vaccine Jeovanny Danielson MD Work Phone: [facility] 05-29-2008 meningococcal ACWY vaccine, unspecified formulation Alex Knutson [facility] 05-29-2008 meningococcal polysaccharide (groups A, C, Y and W-135) diphtheria toxoid conjugate vaccine (MCV4P) Uriel Halina DO Work Phone: [facility] 05-29-2008 tetanus toxoid, redu bridget diphtheria toxoid, and acellular pertussis vaccine, adsorbed Mohamad Mouchli [facility] 12-13-2006 HPV, unspecified formulation Mohjuwan Mouchli [facility] 12-13-2006 human papilloma viru s vaccine, quadrivalent Uriel Halina DO Work Phone: [facility] 08-13-2006 HPV, unspecified formulation Mohamad Mouchli [facility] 08-13-2006 human papilloma viru s vaccine, quadrivalent Uriel Halina DO Work Phone: [facility] 06-13-2006 HPV, unspecified formulation Mohamad Mouchli [facility] 06-13-2006 human papilloma viru s vaccine, quadrivalent Uriel Halina DO Work Phone: [facility] 06-08-1999 diphtheria, tetanus toxoids and acellular pertussis vaccine, unspecified formulation Uriel Halina DO Work Phone: [facility] 06-08-1999 DTaP, unspecified formulation Mohamad Mouchli [facility] 06-08-1999 measles, mumps and rubella virus vaccine Mohamad Mouchli [facility] 06-08-1999 poliovirus vaccine, inactivated Uriel Halina DO Work Phone: [facility] 06-08-1999 poliovirus vaccine, unspecified formulation Gwen Danielson MD Work Phone: [facility] Payers Date Payer Category Payer Unknown [id number] 2019 [facility] [id number] 2019 Unknown [id number] 1994 Unknown [id number] 9.2.593 1994 Unknown [id number] 9.2.593 1994 Unknown [id number] 9.2.593 1994 Unknown [id number] 9.2.593 1994 Unknown [id number] 9.2.1243 1994 Unknown [id number] 9.2.727 1994 Unknown [id number] [id number] 9.2.727 1994 Unknown [id number] 9.2.727 1994 Unknown [id number] 9.2.727 1994 Unknown [id number] 9.2.727 1994 Unknown [id number] 9.2.1259 1994 Unknown [id number] 9.2.1259 1994 Unknown [id number] 9.2.1259 1994 Unknown [id number] 9.2.1259 1994 Unknown [id number] [id number] 9.2.1259 1994 Unknown [id number] 9.2.1259 1959 Unknown [id number] 1959 Unknown [id number] 1959 Unknown [id number] Social History Date Type Detail [facility] Start: 06-13-2023 End: 02-15-2024 History of Social function [facility] Start: 06-13-2023 End: 02-15-2024 Area Deprivation Index [facility] National Score (1-10 0), lower number is lower risk 85 [facility] Start: 1994 Sex Assigned At Not on file [facility] Start: 07-10-2023 End: 07-20-2023 Exposure to SARS-CoV-2 (event) Not sure [facility] Work Phone: Start: 09-06-2022 End: 09-13-2023 Tobacco smoking status Never smoked tobacco (finding) [facility] Start: 12-03-2023 End: 04-14-2024 Alcoholic beverage intake Lifetime non-drinker (finding) [facility] Start: 09-06-2022 Alcohol Comment caffeine: none [facility] Do you belong to any clubs or organizations such as religion groups, unions, fraternal or athletic groups, or [...] Assessment Result Facility 10-15-2023 Functional Status N/A [facility] 09-13-2023 Functional Status N/A [facility] Clinical Notes 01-20-2021 to 03-12-2024 Akua Streeter, BAKER HEAD - 03/12/2024 8:00 AM PATRICIA Bustillo - [...] for a telehealth appointment. Patients Phone #: [phone] (mobile) Current Medications: has a current medication list which includes the following prescription(s): alprazolam, breyna, cholecalciferol, coenzyme q-10, fish oil concentrate, and vitamins. Medical History: Active Ambulatory Problems Diagnosis Date Noted Bipolar 1 disorder ([facility]) 11/13/2022 Anxiety 12/21/2022 Asthma ([facility]) 12/21/2022 Attention deficit hyperactivity disorder (ADHD), combined type ([facility]) 12/21/2022 Proteinuria 08/03/2010 PTSD (post-traumatic stress disorder) ([facility]) 12/21/2022 Bipolar affective disorder, current episode hypomanic ([facility]) 12/21/2022 Well woman exam with routine gynecological exam 03/19/2023 Myalgia 02/18/2024 Resolved Ambulatory Problems Diagnosis Date Noted No Resolved Ambulatory Problems Past Medical History: Diagnosis Date Abnormal uterine bleeding (AUB) ADHD (attention deficit hyperactivity disorder) ([facility]) Amenorrhea Bilateral sacroiliitis ([facility]) Cervical cancer ([facility]) Chronic fatigue Chronic rhinitis Chronic vaginitis Depression [...] 03/2020 lap, D and C - at [facility] DILATION AND CURETTAGE OF UTERUS 03/07/2013 [...] Uriel Meade DO documented in this encounter [facility] 02-18-2024 History of Present illness Narrative Associated Problem(s): Myalgia Dr Collazo put in lab orders and patient will go to [facility] Will call with results Images from [...] from patient for Telehealth Services. Patient Location ([place]) Patient is concerned about ongoing joint pain [...] lab orders and patient will go to [facility] Will call with results Health Maintenance Due Topic Date Due Influenza Vaccine (1) 11/04/2023 documented in this encounter [facility] 02-18-2024 Evaluation + Plan note Diagnostic Tests Pending.JESUS Individual Abs 02/18/24Rheumatoid Factor Quantitative 02/18/24 [facility] 01-16-2024 History of Present illness Narrative Reason for Appointment: Patient ID: Indu St is a 28 y.o. female who presents for Telehealth and Infertility Patient presents today via telephone call for a telehealth appointment. Patients Phone #: [phone] (mobile) Current Medications: has a current medication list which includes the following prescription(s): alprazolam and breyna. Medical History: Active Ambulatory Problems Diagnosis Date Noted Bipolar 1 disorder ([facility]) 11/13/2022 Anxiety 12/21/2022 Asthma ([facility]) 12/21/2022 Attention deficit hyperactivity disorder (ADHD), combined type ([facility]) 12/21/2022 Proteinuria 08/03/2010 PTSD (post-traumatic stress disorder) ([facility]) 12/21/2022 Bipolar affective disorder, current episode hypomanic ([facility]) 12/21/2022 Well woman exam with routine gynecological exam 03/19/2023 Resolved Ambulatory Problems Diagnosis Date Noted No Resolved Ambulatory Problems Past Medical History: Diagnosis Date Abnormal uterine bleeding (AUB) ADHD (attention deficit hyperactivity disorder) ([facility]) Amenorrhea Bilateral sacroiliitis ([facility]) Cervical cancer ([facility]) Chronic fatigue Chronic rhinitis Chronic vaginitis Depression [...] 03/2020 lap, D and C - at [facility] DILATION AND CURETTAGE OF UTERUS 03/07/2013 [...] pt has appt with IVF clinic in [place]. Pt is having weird symptoms- anal itching, [...] Uriel Meade DO documented in this encounter [facility] 12-03-2023 History of Present illness [...] Problems Diagnosis Date Noted Bipolar 1 disorder ([facility]) 11/13/2022 Anxiety 12/21/2022 Asthma ([facility]) 12/21/2022 Attention deficit hyperactivity disorder (ADHD), combined type ([facility]) 12/21/2022 Proteinuria 08/03/2010 PTSD (post-traumatic stress disorder) ([facility]) 12/21/2022 Bipolar affective disorder, current episode hypomanic ([facility]) 12/21/2022 Well woman exam with routine gynecological exam 03/19/2023 Resolved Ambulatory Problems Diagnosis Date Noted No Resolved Ambulatory Problems Past Medical History: Diagnosis Date Abnormal uterine bleeding (AUB) ADHD (attention deficit hyperactivity disorder) ([facility]) Amenorrhea Bilateral sacroiliitis ([facility]) Cervical cancer ([facility]) Chronic fatigue Chronic [...] bleeding (AUB) ADHD (attention deficit hyperactivity disorder) ([facility]) Amenorrhea Bilateral sacroiliitis ([facility]) Cervical cancer ([facility]) Chronic fatigue Chronic rhinitis Chronic vaginitis Depression with anxiety Depression/Anxiety Endometriosis Gynecological disorder History of medical problems Question of bipolar disorder Infertility counseling Low libido Miscarriage S/P laparoscopy Sciatica, unspecified side Seasonal allergic rhinitis, unspecified trigger Serous otitis media, unspecified chronicity, unspecified laterality URI (upper respiratory infection) 03/01/2019 [facility] - ER Social History Tobacco Use [...] 03/2020 lap, D and C - at [facility] DILATION AND CURETTAGE OF UTERUS 03/07/2013 [...] nursing note reviewed. Exam conducted with a shower enclosure installer present. Vitals: Estimated body mass index is [...] have HSG done again locally at [facility]. Patient is to call office when she starts cycle and nurse will send HSG and HCG to [facility] Rad[facility]. Will hold off on fertility meds for the next cycle until HSG results are back. Patient to return to clinic for annual and PRN as needed. Documented by Akua Streeter LPN on behalf of: Uriel Meade DO documented in this encounter [facility] 10-15-2023 Evaluation + Plan note Extrac latisha from: Title:ANES Post General Author:Gus Moreno DO. Date:10/15/23 Plan Transfer/Discharge: Patient exhibiting no signs of N/V. Hydration status is adequate. Extracted from: Title:Josh Basic PRE Author:Kenan Moreno DO. Date:10/15/23 Plan [place] [employer] (ASA) physical status classification: Class II. Anesthetic Preoperative Plan: Anesthesia General. [facility] 08-12-2024 Hospital Discharge instructions Patient Education [...] day. 10/15/2023 09:50:26 Endoscopy, Care After Procedure [facility] ([facility]) Endoscopy Care After Procedure Please read the instructions outlined below and refer to this sheet in the next few weeks. These discharge instructions provide you with general information on [facility] Your doctor may also give [...] Document Re-Released: 08/13/2006 ExitCare Patient Information 2009 [employer]. Follow Up Care 09/13/2023 15:40:21 With:Alex Knutson Address: [address] [place] [address], [address] [place] [address]- [phone] Business (1) When:1 to 2 weeks Comments:Call for any problems. [facility] 08-12-2024 NoteProgress Note-Physician Patient: INDU ST [...] Daily, # 527 gm, Refills(s) 5, Pharmacy: [facility] #[id number], 167, cm, 09/13/23 14:57:00 EDT, Height/Length Dosing, 48.9, kg, 09/13/23 14:57:00 EDT, Weight Dosing Pantoprazole [address] Tab: 40 mg = 1 tab(s), Oral, Daily, # 30 tab(s), Refills(s) 4, Pharmacy: [facility] #[id number], 167, cm, 09/13/23 14:57:00 EDT, Height/Length Dosing, [...] CT of the abdomen / SNOMED CT 1346659204 / Confirmed Abnormal uterine bleeding. / SNOMED CT 3847328195 / Confirmed Amenorrhea / SNOMED CT 26942707 / Confirmed Anemia / SNOMED CT 515164152 / Confirmed Anxiety / SNOMED CT 15432701 / Confirmed Asthma / SNOMED CT 146801277 / Confirmed Attention deficit hyperactivity disorder / SNOMED CT 4686139062 / Confirmed Benign neoplasm of pituitary gland / SNOMED CT 388448701 / Confirmed Bilateral arthritis of sacroiliac joint / SNOMED CT 7361411055 / Confirmed Bipolar disorder / SNOMED CT 91870691 / Confirmed Chronic rhinitis / SNOMED CT 449798969 / Confirmed Chronic vaginitis / SNOMED CT 10314579 / Confirmed Depressive disorder / SNOMED CT 44549955 / Confirmed Disorder of pituitary gland / SNOMED CT 0971907334 / Confirmed Endometriosis (clinical) / SNOMED CT 632844970 / Confirmed Esophagitis / SNOMED CT 44873834 / Confirmed Fatigue / SNOMED CT 308709587 / Confirmed Gastritis / SNOMED CT 2272769 / Confirmed Heartburn / SNOMED CT 12795630 / Confirmed History of laparoscopy / SNOMED CT 9434797592 / Confirmed Malignant tumor of cervix / SNOMED CT 357107380 / Confirmed Miscarriage / SNOMED CT 03486720 / Confirmed Nausea and vomiting / SNOMED CT 67472591 / Confirmed Pain in pelvis / SNOMED CT 952468792 / Confirmed Prolactin level above reference range / SNOMED CT 9086086749 / Confirmed Prolactinoma / SNOMED CT 588723535 / Confirmed Sciatica / SNOMED CT 26503586 / Confirmed Seasonal allergic rhinitis / SNOMED CT 454947851 / Confirmed Stress-related physiological response affecting medical condition / SNOMED CT 32940827 / Confirmed 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 Weight loss / SNOMED CT 291080168 / Confirmed Physical Examination Vital Signs 10/15/2023 [...] 36.7 DegC Heart Rate (more content not included)...[facility]Result Comment: Electronically Signed By: Lenny Moreno DO\.br\Date and Time Signed: 10/15/23 10:06 [id number] NoteColonoscopy Procedure Report Patient: INDU ST Age: [...] Daily, # 527 gm, Refills(s) 5, Pharmacy: [facility] #[id number], 167, cm, 09/13/23 14:57:00 EDT, Height/Length Dosing, 48.9, kg, 09/13/23 14:57:00 EDT, Weight Dosing Pantoprazole [address] Tab: 40 mg = 1 tab(s), Oral, Daily, # 30 tab(s), Refills(s) 4, Pharmacy: [facility] #[id number], 167, cm, 09/13/23 14:57:00 EDT, Height/Length Dosing, [...] 24 hours. Education and Follow-up: Counseled: Patient, Family.[facility] Comment on above:Other Comment: Missing Attachment - attachment storage system not supported [id number] Can be viewed in source system Missing Attachment - attachment storage system not supported [id number] Can be viewed in source systemMissing Attachment - attachment storage system not supported [id number] Can be viewed in source systemMissing Attachment - attachment storage system not supported [id number] Can be viewed in source systemMissing Attachment - attachment storage system not supported [id number] Can be viewed in source systemMissing Attachment - attachment storage system not supported [id number] Can be viewed in source systemMissing Attachment - attachment storage system not supported [id number] Can be viewed in source [id number] Note Patient Education - Text Colonoscopy Care After Surgery Please read the instructions outlined below and refer to this sheet in the next few weeks. These discharge instructions provide you with general information on [facility] Your doctor may also give you [...] Document Re-Released: 08/13/2006 ExitCare? Patient Information ?2009 [employer] 10-15-2023 NoteProgress Note-Physician Patient: INDU ST [...] Daily, # 527 gm, Refills(s) 5, Pharmacy: [facility] #[id number], 167, cm, 09/13/23 14:57:00 EDT, Height/Length Dosing, 48.9, kg, 09/13/23 14:57:00 EDT, Weight Dosing Pantoprazole [address] Tab: 40 mg = 1 tab(s), Oral, Daily, # 30 tab(s), Refills(s) 4, Pharmacy: [facility] #[id number], 167, cm, 09/13/23 14:57:00 EDT, Height/Length Dosing, [...] CT of the abdomen / SNOMED CT 7776144011 / Confirmed Abnormal uterine bleeding. / SNOMED CT 1568852485 / Confirmed Amenorrhea / SNOMED CT 97275188 / Confirmed Anemia / SNOMED CT 526768153 / Confirmed Anxiety / SNOMED CT 97844678 / Confirmed Asthma / SNOMED CT 625806673 / Confirmed Attention deficit hyperactivity disorder / SNOMED CT 6623088533 / Confirmed Benign neoplasm of pituitary gland / SNOMED CT 797336883 / Confirmed Bilateral arthritis of sacroiliac joint / SNOMED CT 6936377041 / Confirmed Bipolar disorder / SNOMED CT 65724351 / Confirmed Chronic rhinitis / SNOMED CT 440000657 / Confirmed Chronic vaginitis / SNOMED CT 24612436 / Confirmed Depressive disorder / SNOMED CT 33281162 / Confirmed Disorder of pituitary gland / SNOMED CT 3221670862 / Confirmed Endometriosis (clinical) / SNOMED CT 243722809 / Confirmed Esophagitis / SNOMED CT 14137357 / Confirmed Fatigue / SNOMED CT 243807183 / Confirmed Gastritis / SNOMED CT 7219032 / Confirmed Heartburn / SNOMED CT 77112758 / Confirmed History of laparoscopy / SNOMED CT 9998246039 / Confirmed Malignant tumor of cervix / SNOMED CT 793489216 / Confirmed Miscarriage / SNOMED CT 42614764 / Confirmed Nausea and vomiting / SNOMED CT 62635893 / Confirmed Pain in pelvis / SNOMED CT 350122004 / Confirmed Prolactin level above reference range / SNOMED CT 9986114616 / Confirmed Prolactinoma / SNOMED CT 717301649 / Confirmed Sciatica / SNOMED CT 67940555 / Confirmed Seasonal allergic rhinitis / SNOMED CT 829236477 / Confirmed Stress-related physiological response affecting medical condition / SNOMED CT 40634787 / Confirmed Visceral hypersensitivity syndrome / SNOMED CT 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 Bipolar disorder Chronic rhinitis Chronic vaginitis Depressive disorder Disorder of pituitary gland Endometriosis (cl (more content not included)...[facility] Comment on above:Result Comment: Electronically Signed By: Lenny Moreno DO.br\Date and Time Signed: 10/15/23 07:34 [id number] Telephone encounter Note* Telephone Encounter - Twyla Caraballo MA - 08/14/2023 11:08 AM EDT Received MRI results completed 08/02/2023, scanned to chart Twyla Caraballo Home Care Manager Rn II Endocrinology & Metabolism [place] [facility] F20 & X20 [facility]06-11-2024 Miscellaneous Notes* Telephone Encounter - Twyla Caraballo MA - 08/14/2023 11:08 AM EDT Received MRI results completed 08/02/2023, scanned to chart Twyla Caraballo Home Care Manager Rn II Endocrinology & Metabolism [place] [facility] F20 & X20 [facility] Reason for referral (narrative)* Consultation (Routine) - Authorized Specialty Diagnoses / Procedures Referred By Niki villeda Referred To Contact Gastroenterology Abiodun Ochoa PA-C [address] [facility] [address] [place] [address] [address] G[facility] [place] [address] Referral ID Status Reason Start Date Expiration Date Visits Requested Visits Authorized [id number] Authorized Specialty Services Required 07/20/2023 07/19/20[address] [facility] Work Phone: 1(201) 565-313004-10-2024 NoteHNO ID: [id number] Author: KARINA VINCENT MD Service: ? Author [...] June 13, 2023 TIME of SERVICE: 10:12 [facility]04-10-2024 History of Present illness Narrative* Karina [...] of SERVICE: 10:12 AM [facility]21 NoteHNO ID: [id number] Author: Renetta Beltran MD Service: Reproductive Endocrinology [...] Dr. Renetta Beltran M.D. Reproductive Endocrinology and InfertilityCastleview [id number] NoteHNO ID: [id number] Author: RT Juan(R) Service: Radiology Author Type: [...] IV DATA: Not applicable SIGNED BY: Samina Davisno, RT(R) January 20, 2021 12:29 [facility] HospitalEvaluation + Plan note Future Appointments Appointment Date:10/01/2023 09:00:00 AM Scheduled Provider: Location:[facility] Surgical Services Appointment Type:Surgery FT [facility] Evaluation note* Diagnosis Prolactinoma (HCC)- Primary Benign neoplasm of pituitary gland and craniopharyngeal duct (pouch) 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HCC) Unspecified disorder of the pituitary gland and its hypothalamic control Elevated prolactin level Unspecified endocrine disorder [facility] encounter [facility] Diagnosis Nausea and vomiting, unspecified vomiting type- Primary Gastritis, presence of bleeding unspecified, unspecified chronicity, unspecified gastritis type documented in this encounter [facility] Work Phone: Evaluation note* Diagnosis Female infertility Female infertility of unspecified origin Vaginal odor Unspecified symptom associated with female genital organs documented in this encounter [facility] HealthcareEvaluation note* Diagnosis Myalgia- Primary Unspecified myalgia and myositis documented in this encounter [facility] HealthcareEvaluation note* Diagnosis Fallopian tube disorder- Primary Unspecified noninflammatory disorder of ovary, fallopian tube, and broad ligament documented in this encounter [facility] HealthcareEvaluation note* Diagnosis Myalgia- Primary Unspecified myalgia and myositis Fallopian tube disorder Unspecified noninflammatory disorder of ovary, fallopian tube, and broad ligament Anovulation Female infertility associated with anovulation Female infertility Female infertility of unspecified origin [facility] N[facility] No data available for this section [facility] Hospital Discharge instructions* Attachments The following attachments cannot be sent through Care Everywhere. * Gastritis ED (Grenadian) * Nausea and Vomiting, Adult ED (Grenadian) * Cannabis hyperemesis syndrome (G[place]adian) [facility] Work [facility]: Hospital Discharge instructions No data available for this section [facility] Progress note No data available for this section [facility] Summary Purpose Family History No [...] STEM W/O W/CONTRAST MATERIAL Karina Vincent MD [address] [place] [address] Mr Imaging [facility] Referral ID Status Reason Start Date Expiration Date Visits Requested Visits Authorized [id number] Pending Review Auto-Generat ed Referral 07/11/2023 08/09/2024 1 1 Additional Source Comments INFORMATION SOURCE (unrecogn ized section and content) DATE CREATED AUTHOR 04/15/2020 [facility] DATE CREATED AUTHOR AUTHOR'S ORGANIZ ATION 01/22/2021 [facility] DATE CREATED AUTHOR AUTHOR'S ORGANIZ ATION 07/30/2023 [facility] DATE CREATED AUTHOR AUTHOR'S ORGANIZ ATION 08/24/2023 [facility] DATE CREATED AUTHOR AUTHOR'S ORGANIZ ATION 09/19/2023 [facility] DATE CREATED AUTHOR AUTHOR'S ORGANIZ ATION 10/16/2023 [facility] DATE CREATED AUTHOR AUTHOR'S ORGANIZ ATION 10/18/2023 [facility] DATE CREATED AUTHOR AUTHOR'S ORGANIZ ATION 10/19/2023 [facility] DATE CREATED AUTHOR AUTHOR'S ORGANIZ ATION 02/21/2024 [facility] DATE CREATED AUTHOR AUTHOR'S ORGANIZ ATION 02/23/2024 [facility] DATE CREATED AUTHOR AUTHOR'S ORGANIZ ATION 02/24/2024 [facility] DATE CREATED AUTHOR AUTHOR'S ORGANIZ ATION 04/13/2024 [facility] DATE CREATED AUTHOR AUTHOR'S ORGANIZ ATION 04/16/2024 [facility] EPIC Source Comments (unrecognize d section and content) In the event this informatio n is protected by the Federal Confidentiality of Alcohol and Drug Abuse Patient Records regulations: The Federal rules restrict any use of the information to criminally investigate or prosecute any alcohol or drug abuse patient.[facility] Hospital[facility] the event this information is protected by the Federal Confidentiality of Alcohol and Drug Abuse Patient Records regulations: The Federal rules restrict any use of the information to criminally investigate or prosecute any alcohol or drug abuse patient.[facility] Reason for Visit (unrecogniz ed section and content) Reason Comments Pituitary Problem Reason Comments n/v. chest pain Reason Comments Results Reason Comments Telehealth Infertility Reason Comments Infertility Care Teams (unrecognized sec tion and content) Cardiac Monitor Technician Relationship Specialty Start Date End Date Uriel Meade DO [address] [place] [address] [place] [address] Referring Grommet Worker 06/05/23 Cardiac Monitor Technician Relationship Specialty Start Date End Date Uriel Meade DO [address] [place] [address] Referring Grommet Worker 06/05/23 Cardiac Monitor Technician Relationship Specialty Start Date End Date Carolyne Collazo MD [address] [place] [address] PCP - General Family Medicine 08/28/22 Cardiac Monitor Technician Relationship Specialty Start Date End Date Carolyne Collazo MD [address] [place] [address] PCP - General Family Medicine 08/28/22 Cardiac Monitor Technician Relationship Specialty Start Date End Date Carolyne Collazo MD [address] [place] [address] PCP - General Family Medicine 08/28/22 Cardiac Monitor Technician Relationship Specialty Start Date End Date Carolyne Collazo MD [address] [place] [address] PCP - General Family Medicine 08/28/22 Cardiac Monitor Technician Relationship Specialty Start Date End Date Carolyne Collazo MD [address] [place] [address] PCP - General Family Medicine 08/28/22 Cardiac Monitor Technician Relationship Specialty Start Date End Date Carolyne Collazo MD [address] [place] [address] PCP - General Family Medicine 08/28/22 Cardiac Monitor Technician Relationship Specialty Start Date End Date Carolyne Collazo MD [address] [place] [address] PCP - [facility] 08/28/22 Cardiac Monitor Technician Relationship Specialty Start Date End Date Carolyne Collazo MD [address] [place] [address] PCP - [facility] 08/28/22 Cardiac Monitor Technician Relationship Specialty Start Date End Date Carolyne Collazo MD [address] [place] [address] PCP - [facility] 08/28/22 Cardiac Monitor Technician Relationship Specialty Start Date End Date Carolyne Collazo MD [address] [place] [address] PCP - [facility] 08/28/22 Cardiac Monitor Technician Relationship Specialty Start Date End Date Carolyne Collazo MD [address] [place] [address] PCP - [facility] 08/28/22 Scheduled Active and Recently Administ [...] BE BASED ON THE PRIMARY CLINICAL RECORDS. [facility]. provides no warranty or guarantee of the accuracy or completeness of information in this document.
== END 2024-04-18 06:48 | disposition home or self-care (01) ==
LOC: US 06:47
PROVIDERS: PCP Family Medicine; Visit Provider Obstetrics & Gynecology Reproductive Endocrinology
DX: Z31.83 Encounter for assisted reproductive fertility procedure cycle (principal)
CPT/HCPCS: 76830

== ENCOUNTER 2024-07-10 15:16 | Outpatient (OUT) | payer BC, SELFPAY ==
[2024-07-10 15:31] LABS: BOX Test Reference Lab UNITY; BOX Test Sent Out UNITY
== END 2024-07-10 15:17 | disposition home or self-care (01) ==
LOC: LAB 15:17
PROVIDERS: PCP Family Medicine; Visit Provider Obstetrics & Gynecology
DX: O09.811 Supervision of pregnancy resulting from assisted reproductive technology, first trimester (principal)
CPT/HCPCS: 36415

== ENCOUNTER 2024-08-26 12:39 | Outpatient (REF) | payer BC, SELFPAY ==
--- OUTSIDE RECORDS SUMMARY | 2024-08-13 09:17 | XMS_ITS | Encounter Summary ---
Author Organization [facility] Address [address] [place] [phone] Phone Care Team Providers Care Metal Building Assembler Name Role Phone Carroll Zuletaory Alex DO Primary Care Provider + Reason for Referral * Consultation (Routine) - Authorized Specialty Diagnoses / Procedures Referred By Contac t Referred To Contact Family Medicine / Primary Care Diagnoses Nausea and vomiting, unspecified vomiting type Milan Lerner DO [address] [place] [address] Department [place] [address] Phone: tel: fax: Referral ID Status Reason Start Date Expiration Date Visits Requested Visits Authorized [id number] Authorized Specialty Services Required 08/13/2024 08/13/2025 1 1 Reason for Visit * Reason Comments Vomiting During Patient is frances ost 14 weeks and she reports having mid sternal chest pain and vomiting that started around 0130 this am. Patient reports that she smoked 2 joints around 0130 and continues to vomit. Denies fever, has had some urinary urgency. Encounter Details Date Type Department Care Team ([facility] Contact Info) Description 08/13/2024 9:17 AM EDT - 08/13/2024 11:52 AM EDT Emergency [facility] Emergency Medicine [address] [place] [phone] Milan Lerner DO [address] [place] [address] Department [place] [address] Nausea and vomiting, unspecified vomiting type (Primary Dx) Discharge Disposition: Home Social History Tobacco Use Types Packs/Day Years Used Date Smoking Tobacco: Never Assessed Comments Unknown Sex and Gender Information Value Date Recorded Sex Assigned at Female 08/15/2024 2:14 AM EDT Legal Sex Female 9:17 AM EDT Gender Identity Female 08/15/2024 2:14 AM EDT Sexual Orientation Not on file COVID-19 Exposure Response Date Recorded In the last 10 days, have yo u been in contact with someone who was confirmed or suspected to have Coronavirus/COVID-19? No / Unsure 08/13/2024 9:26 AM EDT documented as of this encounter Last Filed Vital Signs Vital Sign Reading Time Taken Comments Blood Pressure 119/67 08/13/2024 11:38 AM EDT Pulse 84 08/13/2024 11:38 AM EDT Temperature 36.3 C (97.3 F) 08/13/2024 9:25 AM EDT Respiratory Rate 16 08/13/2024 11:38 AM EDT Oxygen Saturation 100% 08/13/2024 11:38 AM EDT Inhaled Oxygen Concentration - - Weight 52.6 kg (116 lb) 08/13/2024 9:25 AM EDT Height 167.6 cm (5' 6 ) 08/13/2024 9:25 AM EDT Body Mass Index 18.72 08/13/2024 9:25 AM EDT documented in this encounter Functional Status * Calculated C-SSRS Risk Score (Lifetime/Recent) Answer Date of Assessment Author No Risk Indicated 08/13/2024 9:26 AM EDT Sayda Cline RN * [place] Suicide Severity Rating Scale (Screener/Recent Self-Report) Question Answer Date of Assessment Author 1. Wish to be (Past 1 Month) No 025 9:26 AM EDT Sayda Cline RN 2. Non-Specific Active Suici cas Thoughts (Past 1 Month) No 08/13/2024 9:26 AM EDT Sidney Cline, CINDY 6. Suicidal Behavior (Lifetime) No 9:26 AM EDT Sayda Cline RN documented as of this encounter Discharge Instructions * Attachments The following attachments cannot be sent through Care Everywhere. * Nausea and Vomiting, Adult ED (Polish) documented in this encounter Medications at Time of Discharge OLANZapine (ZyPREXA) 2.5 mg tablet Take 1 tablet (2.5 mg) by mouth 2 times a day. 07/31/2024 no115/iron/folic acid ( 19 ORAL) Take 1 tablet by mouth once daily. 02/21/2024 5 QUEtiapine (SEROquel) 50 mg tablet Take 1 tablet (50 mg) by mouth 2 times a day. 07/07/2024 pantoprazole (ProtoNix) 20 mg EC tablet Take 1 tablet (20 mg) by mouth once daily in the morning. Take before meals. Do not crush, chew, or split. pantoprazole (ProtoNix) 40 mg EC tabletIndications:Na usea and vomiting, unspecified vomiting type Take 1 tablet (40 mg) by mouth once daily in the morning. Take before meals. Do not crush, chew, or split. 30 tablet 08/13/2024 6 ondansetron ODT (Zofran-ODT) 8 mg disintegrating tablet Dissolve 1 tablet (8 mg) in the mouth 4 times a day as needed. 08/04/2024 5 documented as of this encounter ED Notes * Milan Lerner, DO - 08/13/2024 10:17 AM EDTAssociated Order(s): ECG 12 lead HPI Chief Complaint Patient presents with Vomiting During Patient is almost 14 weeks and she reports having mid sternal chest pain and vomiting thatstarted around 0130 this am. Patient reports that she smoked 2 joints around 0130 and continues to vomit. Denies fever, has had some urinary urgency. Limitations to History: None HPI: G3, P1 at approximate 14 weeks presents with concern for nausea and vomiting. Patient has pressure in her chest. States that she was recently admitted at [facility] for esophageal spasm. States that this began after smoking marijuana this morning. Patient states that her primary care, psychia trist, agricultural appraiser agreed with her smoking marijuana as she has no appetite and is stimulates her appetite. Denies any shortness of breath, abdominal pain, urinary symptoms. Additional History Obtained from: Family at the bedside. Physical Exam: VS: As documented in the triage note and EMR flowsheet from this visit were reviewed. Appearance: Alert. cooperative, in no acute distress. Skin: Intact, dry skin, no lesions, rash, petechiae or purpura. HENT: Normocephalic, atraumatic. Nares patent. No intraoral lesions. Neck: Supple, without meningismus. Trachea at midline. No lymphadenopathy. Pulmonary: Clear bilaterally with good chest wall excursion. No rales, rhonchi or wheezing. No accessory muscle use or stridor. Cardiac: Regular rate and rhythm, no rubs, murmurs, or gallops. Abdomen: Abdomen is soft, nontender, and nondistended. No palpable organomegaly. No rebound or guarding. No CVA tenderness. Nonsurgical abdomen. Psychiatric: Appropriate mood and affect. Patient History Medical History[1] Surgical History[2] Family History[3] Social History[4] Physical Exam ED Triage Vitals [08/13/24 0925] Temperature Heart Rate Respirations BP 36.3 ??C (97.3 ??F) 85 (!) 22 126/85 Pulse Ox Temp Source Heart Rate Source Patient Position 98 % Temporal -- -- BP Location FiO2 (%) -- -- Physical Exam ED Course & MDM Diagnoses as of 08/13/24 1337 Nausea and vomiting, unspecified vomiting type No data recorded [place] Coma Scale Score: 15 (08/13/24 0926 : Sayda Cline RN) Medical Decision Making Labs Reviewed CBC WITH AUTO DIFFERENTIAL - Abnormal WBC 16.7 (*) nRBC 0.0 RBC 4.63 Hemoglobin 13.6 Hematocrit 40.0 MCV 86 MCH 29.4 MCHC 34.0 RDW 14.6 (*) Platelets 273 Neutrophils % 89.6 Immature Granulocytes %, Automated 0.5 Lymphocytes % 7.6 Monocytes % 2.0 Eosinophils % 0.1 Basophils % 0.2 Neutrophils Absolute 14.92 (*) Immature Granulocytes Absolute, Au* 0.09 Lymphocytes Absolute 1.26 Monocytes Absolute 0.34 Eosinophils Absolute 0.02 Basophils Absolute 0.03 COMPREHENSIVE METABOLIC PANEL - Abnormal Glucose 122 (*) Sodium 135 (*) Potassium 3.5 Chloride 106 Bicarbonate 19 (*) Anion Gap 14 Urea Nitrogen 11 Creatinine 0.54 eGFR >90 Calcium 9.3 Albumin 4.1 Alkaline Phosphatase 45 Total Protein 6.8 AST 15 Bilirubin, Total 0.4 ALT 15 URINALYSIS WITH REFLEX CULTURE AND MICROSCOPIC - Abnormal Color, Urine Yellow Appearance, Urine Ex.Turbid (*) Specific [place], Urine 1.023 pH, Urine 8.5 (*) Protein, Urine 30 (1+) (*) Glucose, Urine Normal Blood, Urine NEGATIVE Ketones, Urine 80 (3+) (*) Bilirubin, Urine NEGATIVE Urobilinogen, Urine Normal Nitrite, Urine NEGATIVE Leukocyte Esterase, Urine NEGATIVE URINALYSIS MICROSCOPIC WITH REFLEX CULTURE - Abnormal WBC, Urine 6-10 (*) RBC, Urine 6-10 (*) Squamous Epithelial Cells, Urine Mucus, Urine 1+ Amorphous Crystals, Urine 2+ MAGNESIUM - Normal Magnesium 1.81 LIPASE - Normal Lipase 16 Narrative: Venipuncture immediately after or during the administration of Metamizole may lead to falsely low results. Testing should be performed immediately prior to Metamizole dosing. URINALYSIS WITH REFLEX CULTURE AND MICROSCOPIC Narrative: The following orders were created for panel order Urinalysis with Reflex Culture and Microscopic. Procedure Abnormality Status --------- ------ Urinalysis with Reflex C...[[id number]] Abnormal Final result Extra Urine Doran Tube[[id number]] In process Please view results for these tests on the individual orders. EXTRA URINE DORNA TUBE XR chest 1 view Final Result No evidence of acute cardiopulmonary process. Signed by: Michelle Min 08/13/2024 10:40 AM Dictation workstation: [id number] Medical Decision Making: Patient appears well nontoxic. Normotensive. Treated with 1 L normal saline, Zofran. Patient statesthat GI cocktails have worked for her previously and this was given at the bedside. White blood cell count of 16,000 which is likely secondary to the patient's vomiting. No evidence of UTI. Ketonuria. Patient requesting pain medication. Case was discussed with her agricultural appraiser Dr. Meade who did advise a small dose of Dilaudid in the emergency department. Patient was treated with both intravenous Phenergan as well as 0.2 mg of Dilaudid. Patient is out of her Protonix which will be replaced. Advised on follow-up with primary care as well as OB. Asked to return for new or worsening symptoms. Discussed with her that smoking marijuana may be a cause of the patient's vomiting. Also discussed thismay not be beneficial for her . Stable at time of discharge. Differential Diagnoses Considered: Cannabinoid hyperemesis syndrome, vomiting in , electrolyte abnormality, volume depletion, UTI Independent Interpretation of Studies: I independently interpreted: Chest x-ray shows no evidence of pneumonia or pneumothorax. Escalation of Care: Appropriate for discharge and follow-up with primary care and agricultural appraiser. Prescription Drug Consideration: Oral Protonix. Discussion of Management with Other Providers: I discussed the patient/results with: Patient's agricultural appraiser, Dr. Meade. Procedure ECG 12 lead Performed by: Milan Lerner DO Authorized by: Milan Lerner DO ECG interpreted by ED Physician in the absence of a valuation manager: yes Comments: EKG interpreted by Dr. Milan Lerner: Normal sinus rhythm at 73 bpm. PA interval of 102 ms. QTcof 418 ms. Sinus arrhythmia. [1] History reviewed. No pertinent past medical history. [2] History reviewed. No pertinent surgical history. [3] No family history on file. [4] Social History Tobacco Use Smoking status: Not on file Smokeless tobacco: Not on file Substance Use Topics Alcohol use: Not on file Drug use: Yes Types: Marijuana Milan Lerner DO 08/13/24 1340 documented in this encounter Plan of Treatment Scheduled Referrals Name Type Priority Associated Diagnoses Orde r Schedule Referral to Primary Care Outpatient Referral Non-Urgent Nausea and vomiting, unspecified vomiting type Expected: 08/13/2024 (Approximate), Expires: 08/13/2025 documented as of this encounter Procedures Procedure Name Priority Date/Time Associated Diagnosis Comments ECG 12-LEAD STAT 08/13/2024 1:40 PM EDT XR CHEST 1 VIEW STAT 08/13/2024 10:38 AM EDT EXTRA URINE DORAN TUBE STAT 08/13/2024 10:07 AM EDT URINALYSIS WITH REFLEX MICROSCOPIC AND CULTURE STAT 08/13/2024 10:07 AM EDT URINALYSIS MICROSCOPIC WITH REFLEX CULTURE STAT 08/13/2024 10:07 AM EDT URINALYSIS WITH REFLEX MICROSCOPIC AND CULTURE STAT 08/13/2024 10:07 AM EDT CBC WITH AUTO DIFFERENTIAL STAT 08/13/2024 9:34 AM EDT MAGNESIUM STAT 08/13/2024 9:34 AM EDT LIPASE STAT 08/13/2024 9:34 AM EDT COMPREHENSIVE METABOLIC PANEL STAT 08/13/2024 9:34 AM EDT documented in this encounter Results * ECG 12 lead (08/13/2024 1:40 PM EDT) Ventricular Rate 73 BPM MUSE Atrial Rate 73 BPM MUSE PA Interval 102 ms MUSE QRS Duration 72 ms MUSE QT Interval 380 ms MUSE QTC Calculation(Baze tt) 418 ms MUSE P Maybell 81 degrees MUSE R Maybell 95 degrees MUSE T Maybell 61 degrees MUSE QRS Count 12 beats MUSE Q Onset 220 ms MUSE P Onset 169 ms MUSE P Offset 202 ms MUSE T Offset 410 ms MUSE QTC Fredericia 405 ms MUSE 08/13/2024 9:19 AM EDT 08/14/2024 2:04 PM EDT Narrative MUSE - 08/14/2024 2:04 PM EDT Sinus rhythm with marked sinus arrhythmia with short PA Rightward axis Borderline ECG No previous ECGs available See ED provider note for full interpretation and clinical correlation Confirmed by Lynsey Luna ([id number]) on 08/14/2024 2:04:30 PM Procedure Note Lynsey Luna, STRATEGY CONSULTANT-HUMAN INTELLIGENCE - 08/14/2024 Sinus rhythm with marked sinus arrhythmia with short PA Rightward axis Borderline ECG No previous ECGs available See ED provider note for full interpretation and clinical correlation Confirmed by Lynsey Luna ([id number]) on 08/14/2024 2:04:30 PM us Milan Lerner DO ECG ORDERABLES Final Res ult MUSE * XR chest 1 view (08/13/2024 10:38 AM EDT) Anatomical Region Laterality Modality Thoracic, Chest Computed Radiogr aphy 08/13/2024 10:4 1 AM EDT 08/13/2024 10:41 AM EDT Impressions 08/13/2024 10:40 AM EDT No evidence of acute cardiopulmonary process. Signed by: Michelle Min 08/13/2024 10:40 AM Dictation workstation: [id number] Narrative 08/13/2024 10:40 AM EDT Interpreted By: Michelle Min, STUDY: XR CHEST 1 VIEW; 08/13/2024 10:38 am INDICATION: Signs/Symptoms:chest pressure after vomiting. COMPARISON: None. ACCESSION NUMBER(S): [id number] ORDERING CLINICIAN: MILAN LERNER FINDINGS: AP radiograph of the chest was provided. CARDIOMEDIASTINAL SILHOUETTE: Cardiomediastinal silhouette is normal in size and configuration. LUNGS: No consolidation, pulmonary edema, pleural effusion, or pneumothorax. ABDOMEN: No remarkable upper abdominal findings. BONES: No acute osseous changes. Procedure Note Michelle Min MD, MS - 08/13/2024 Interpreted By: Michelle Min, STUDY: XR CHEST 1 VIEW; 08/13/2024 10:38 am INDICATION: Signs/Symptoms:chest pressure after vomiting. COMPARISON: None. ACCESSION NUMBER(S): [id number] ORDERING CLINICIAN: MILAN LERNER FINDINGS: AP radiograph of the chest was provided. CARDIOMEDIASTINAL SILHOUETTE: Cardiomediastinal silhouette is normal in size and configuration. LUNGS: No consolidation, pulmonary edema, pleural effusion, or pneumothorax. ABDOMEN: No remarkable upper abdominal findings. BONES: No acute osseous changes. IMPRESSION: No evidence of acute cardiopulmonary process. Signed by: Michelle Min 08/13/2024 10:40 AM Dictation workstation: [id number] Milan Lerner DO IMG XR PROCEDURES Final R esult * (ABNORMAL) Urinalysis Microscopic (08/13/2024 10:07 AM EDT) WBC, Urine 6-10(A) 1-5, NONE /HPF 08/13/2024 10:38 AM EDT [facility] RBC, Urine 6-10(A) NONE, 1-2, 3-5 /HPF 08/13/2024 10:38 AM EDT [facility] Squamous Epithelial Cells, Urine 1-9 (SPARSE) Reference range not established. /HPF 08/13/2024 10:38 AM EDT [facility] Mucus, Urine 1+ Reference range not established. /LPF 08/13/2024 10:38 AM EDT [facility] Amorphous Crystals, Urine 2+ NONE, 1+, 2+ /HPF 08/13/2024 10:38 AM EDT [facility] Urine Urine specimen / Unknown 08/13/2024 10:07 AM EDT 08/13/2024 10:21 AM EDT Milan Lerner DO LAB URINE ORDERABLES Daniella l Result [facility] [address] [place] [address] * Extra Urine Doran Tube (08/13/2024 10:07 AM EDT) Extra Tube Hold for add-ons. 08/13/2024 9:02 PM EDT [facility] Comment:Auto resulted. Urine Urine specimen / Unknown 08/13/2024 10:07 AM EDT 08/13/2024 10:21 AM EDT us Mlian Lerner DO LAB URINE ORDERABLES Daniella toth Result [facility] [address] [place] [address] * (ABNORMAL) Urinalysis with Reflex Culture and Microscopic (08/13/2024 10:07 AM EDT) Color, Urine Yellow Light-Yellow , Yellow, Dark-Yellow 08/13/2024 10:38 AM [facility] Appearance, Urine Ex.Turbid(N) Clear 08/13/2024 10:38 AM [facility] Specific [place], Urine 1.023 1.005 - 1.035 08/13/2024 10:38 AM [facility] pH, Urine 8.5(N) 5.0, 5.5, 6.0, 6.5, 7.0, 7.5, 8.0 08/13/2024 10:38 AM [facility] Protein, Urine 30 (1+)(A) NEGATIVE, 10 (TRACE), 20 (TRACE) mg/dL 08/13/2024 10:38 AM [facility] Glucose, Urine Normal Normal mg/dL 08/13/2024 10:38 AM [facility] Blood, Urine NEGATIVE NEGATIVE mg/dL 08/13/2024 10:38 AM [facility] Ketones, Urine 80 (3+)(A) NEGATIVE mg/dL 08/13/2024 10:38 AM [facility] Bilirubin, Urine NEGATIVE NEGATIVE mg/dL 08/13/2024 10:38 AM [facility] Urobilinogen, Urine Normal Normal mg/dL 08/13/2024 10:38 AM [facility] Nitrite, Urine NEGATIVE NEGATIVE 08/13/2024 10:38 AM [facility] Leukocyte Esterase, Urine NEGATIVE NEGATIVE 08/13/2024 10:38 AM EDT [facility] Urine Urine specimen / Unknown 08/13/2024 10:07 AM EDT 08/13/2024 10:21 AM EDT Milan Lerner DO LAB URINE ORDERABLES Daniella l Result Performing Organization Address [facility]/ZIP Co de Phone Number [facility] [address] [place], [place] [phone] * Lipase (08/13/2024 9:34 AM EDT) Pathologist [facility] [place] Lipase 16 9 - 82 U/L LAB CHEMISTRY METHOD 08/13/2024 10:09 AM EDT [facility] Blood Venous blood specimen / Unknown Venipuncture / Unknown 08/13/2024 9:34 AM EDT 08/13/2024 9:37 AM EDT Narrative [facility] - 08/13/2024 10:09 AM EDT Venipuncture immediately after or during the administration of Metamizole may lead to falsely low results. Testing should be performed immediately prior to Metamizole dosing. Milan Lerner DO LAB BLOOD ORDERABLES Daniella l Result Performing Organization Address [facility] Co de Phone Number [facility] [address] [place] [phone] * (ABNORMAL) Comprehensive metabolic panel (08/13/2024 9:34 AM EDT) Glucose 122(H) 74 - 99 mg/dL LAB CHEMISTRY METHOD 08/13/2024 10:09 AM EDT [facility] Sodium 135(L) 136 - 145 mmol/L LAB CHEMISTRY METHOD 08/13/2024 10:09 AM EDT [facility] Potassium 3.5 3.5 - 5.3 mmol/L LAB CHEMISTRY METHOD 08/13/2024 10:09 AM EDT [facility] Chloride 106 98 - 107 mmol/L LAB CHEMISTRY METHOD 08/13/2024 10:09 AM [facility] Bicarbonate 19(L) 21 - 32 mmol/L LAB CHEMISTRY METHOD 08/13/2024 10:09 AM [facility] Anion Gap 14 10 - 20 mmol/L LAB CHEMISTRY METHOD 08/13/2024 10:09 AM [facility] Urea Nitrogen 11 6 - 23 mg/dL LAB CHEMISTRY METHOD 08/13/2024 10:09 AM [facility] Creatinine 0.54 0.50 - 1.05 mg/dL LAB CHEMISTRY METHOD 08/13/2024 10:09 AM [facility] eGFR >90 >60 mL/min/1. 73m*2 LAB CHEMISTRY METHOD 08/13/2024 10:09 AM [facility] Comment: Calculations of estimated GFR are performed using the 2020 CKD-EPI Study Refit equation without the race variable for the IDMS-Traceable creatinine methods. https://jasn.asnjournals.org/content//ASN.6785860387 Calcium 9.3 8.6 - 10.3 mg/dL LAB CHEMISTRY METHOD 08/13/2024 10:09 AM [facility] Albumin 4.1 3.4 - 5.0 g/dL LAB CHEMISTRY METHOD 08/13/2024 10:09 AM [facility] Alkaline Phosphatase 45 33 - 110 U/L LAB CHEMISTRY METHOD 08/13/2024 10:09 AM [facility] Total Protein 6.8 6.4 - 8.2 g/dL LAB CHEMISTRY METHOD 08/13/2024 10:09 AM [facility] AST 15 9 - 39 U/L LAB CHEMISTRY METHOD 08/13/2024 10:09 AM [facility] Bilirubin, Total 0.4 0.0 - 1.2 mg/dL LAB CHEMISTRY METHOD 08/13/2024 10:09 AM [facility] ALT 15 7 - 45 U/L LAB CHEMISTRY METHOD 08/13/2024 10:09 AM [facility] Comment:Patients treated wit h Sulfasalazine may generate falsely decreased results for ALT. Blood Venous blood specimen / Unknown Venipuncture / Unknown 08/13/2024 9:34 AM EDT 08/13/2024 9:37 AM EDT Milan Lerner DO LAB BLOOD ORDERABLES Daniella l Result Performing Organization Address City/[facility]/ZIP Co de Phone Number [facility] [address] [place] [phone] * Magnesium (08/13/2024 9:34 AM EDT) Pathologist [facility] [place] Magnesium 1.81 1.60 - 2.40 mg/dL LAB CHEMISTRY METHOD 08/13/2024 10:09 AM EDT [facility] Blood Venous blood specimen / Unknown Venipuncture / Unknown 08/13/2024 9:34 AM EDT 08/13/2024 9:37 AM EDT Milan Lerner DO LAB BLOOD ORDERABLES Daniella l Result Performing Organization Address [facility]/ZIP Co de Phone Number [facility] [address] [place] [phone] * (ABNORMAL) CBC and Auto Differential (08/13/2024 9:34 AM EDT) [facility] WBC 16.7(H) 4.4 - 11.3 x10*3/uL LAB HEMATOLOGY METHOD 08/13/2024 9:40 AM EDT [facility] nRBC 0.0 0.0 - 0.0 /100 WBCs LAB HEMATOLOGY METHOD 08/13/2024 9:40 AM EDT [facility] RBC 4.63 4.00 - 5.20 x10*6/uL LAB HEMATOLOGY METHOD 08/13/2024 9:40 AM EDT [facility] Hemoglobin 13.6 12.0 - 16.0 g/dL LAB HEMATOLOGY METHOD 08/13/2024 9:40 AM EDT [facility] Hematocrit 40.0 36.0 - 46.0 % LAB HEMATOLOGY METHOD 08/13/2024 9:40 AM EDT [facility] MCV 86 80 - 100 fL LAB HEMATOLOGY METHOD 08/13/2024 9:40 AM [facility] MCH 29.4 26.0 - 34.0 pg LAB HEMATOLOGY METHOD 08/13/2024 9:40 AM [facility] MCHC 34.0 32.0 - 36.0 g/dL LAB HEMATOLOGY METHOD 08/13/2024 9:40 AM [facility] RDW 14.6(H) 11.5 - 14.5 % LAB HEMATOLOGY METHOD 08/13/2024 9:40 AM [facility] Platelets 273 150 - 450 x10*3/uL LAB HEMATOLOGY METHOD 08/13/2024 9:40 AM [facility] Neutrophils % 89.6 40.0 - 80.0 % LAB HEMATOLOGY METHOD 08/13/2024 9:40 AM [facility] Immature Granulocytes %, Automated 0.5 0.0 - 0.9 % LAB HEMATOLOGY METHOD 08/13/2024 9:40 AM [facility] Comment:Immature Granulocyte Count (IG) includes promyelocytes, myelocytes and metamyelocytes but does not include bands. Percent differential counts (%) should be interpreted in the context of the absolute cell counts (cells/UL). Lymphocytes % 7.6 13.0 - 44.0 % LAB HEMATOLOGY METHOD 08/13/2024 9:40 AM [facility] Monocytes % 2.0 2.0 - 10.0 % LAB HEMATOLOGY METHOD 08/13/2024 9:40 AM [facility] Eosinophils % 0.1 0.0 - 6.0 % LAB HEMATOLOGY METHOD 08/13/2024 9:40 AM [facility] Basophils % 0.2 0.0 - 2.0 % LAB HEMATOLOGY METHOD 08/13/2024 9:40 AM [facility] Neutrophils Absolute 14.92(H) 1.20 - 7.70 x10*3/uL LAB HEMATOLOGY METHOD 08/13/2024 9:40 AM [facility] Comment:Percent differential counts (%) should be interpreted in the context of the absolute cell counts (cells/uL). Immature Granulocytes Absolute, Automated 0.09 0.00 - 0.70 x10*3/uL LAB HEMATOLOGY METHOD 08/13/2024 9:40 AM EDT [facility] Lymphocytes Absolute 1.26 1.20 - 4.80 x10*3/uL LAB HEMATOLOGY METHOD 08/13/2024 9:40 AM EDT [facility] Monocytes Absolute 0.34 0.10 - 1.00 x10*3/uL LAB HEMATOLOGY METHOD 08/13/2024 9:40 AM EDT [facility] Eosinophils Absolute 0.02 0.00 - 0.70 x10*3/uL LAB HEMATOLOGY METHOD 08/13/2024 9:40 AM EDT [facility] Basophils Absolute 0.03 0.00 - 0.10 x10*3/uL LAB HEMATOLOGY METHOD 08/13/2024 9:40 AM EDT [facility] Blood Venous blood specimen / Unknown Venipuncture / Unknown 08/13/2024 9:34 AM EDT 08/13/2024 9:37 AM EDT Milan Lerner DO LAB BLOOD ORDERABLES Daniella toth Result [facility] [facility] [address] [place] [address] documented in this encounter Visit Diagnoses Diagnosis Nausea and vomiting, unspecified vomiting type- Primary documented in this encounter Administered Medications Inactive Administered Medications - up to 3 most recent administrations Medication Order MAR Action Action Date Dose Rate Site alum-mag hydroxide-simeth (Mylanta) 200-200-20 mg/5 mL oral suspension 30 mL 30 mL, oral, Once, On Sun08/13/24 at 0945, For 1 dose Given 08/13/2024 10:06 AM EDT 30 mL HYDROmorphone (Dilaudid) injection 0.2 mg 0.2 mg, intravenous, Once, On Sun08/13/24 at 1050, For 1 dose Given 08/13/2024 11:02 AM EDT 0.2 mg lidocaine (Xylocaine) 2 % mouth solution 15 mL 15 mL, oral, Once, On Sun08/13/24 at 0945, For 1 dose Given 08/13/2024 10:06 AM EDT 15 mL ondansetron (Zofran) injection 4 mg 4 mg, intravenous, Once, On Sun08/13/24 at 0930, For 1 dose, When administering via IV Push, administer over 3-5 minutes. Given 08/13/2024 9:38 AM EDT 4 mg promethazine (Phenergan) 12.5 mg in sodium chloride 0.9% 50 mL IV 12.5 mg, intravenous, Administer over 15 Minutes, Once, On Sun08/13/24 at 1050, For 1 dose New Bag 08/13/2024 11:05 AM EDT 12.5 mg sodium chloride 0.9 % bolus 1,000 mL 1,000 mL, intravenous, at 999 mL/hr, Administer over 1 Hours, Once, On Sun08/13/24 at 0930, For 1 dose New Bag 08/13/2024 9:38 AM EDT 1,000 mL 999 mL/hr documented in this encounter Active and Recently Administered Medications Times are shown in EDT. Scheduled Medication Order 08/11/2024 08/12/2024 08/13/2024 alum-mag hydroxide-simeth (Mylanta) 200-200-20 mg/5 mL oral suspension 30 mL (COMPLETED) 30 mL, oral, Once, On Sun08/13/24 at 0945, For 1 dose 1006 (Given - Provid er: Fe Phillips RN) HYDROmorphone (Dilaudid) injection 0.2 mg (COMPLETED) 0.2 mg, intravenous, Once, On Sun08/13/24 at 1050, For 1 dose 1102 (Given - Provid er: Fe Phillips, CINDY) lidocaine (Xylocaine) 2 % mouth solution 15 mL (COMPLETED) 15 mL, oral, Once, On Sun08/13/24 at 0945, For 1 dose 1006 (Given - Provid er: Fe Phillips RN) ondansetron (Zofran) injection 4 mg (COMPLETED) 4 mg, intravenous, Once, On Sun08/13/24 at 0930, For 1 dose, When administering via IV Push, administer over 3-5 minutes. 0938 (Given - Provid er: Fe Phillips RN) promethazine (Phenergan) 12.5 mg in sodium chloride 0.9% 50 mL IV (COMPLETED) 12.5 mg, intravenous, Administer over 15 Minutes, Once, On 6/11/25 at 1050, For 1 dose 1105 (New Bag - Prov ider: Fe Phillips RN)1138 (Stopped - Provider: Fe Phillips RN) sodium chloride 0.9 % bolus 1,000 mL (COMPLETED) 1,000 mL, intravenous, at 999 mL/hr, Administer over 1 Hours, Once, On Sun08/13/24 at 0930, For 1 dose 0938 (New Bag - Prov ider: Fe Phillips RN)1138 (Stopped - Provider: Fe Phillips RN) documented in this encounter Care Teams Metal Building Assembler Relationship Specialty Start Date End Date Joe Zuleta DO [address] [place] [address] PCP - General Family Medicine 08/13/24 documented as of this encounter
--- OUTSIDE RECORDS SUMMARY | 2024-08-13 13:40 | XMS_ITS | Encounter Summary ---
Author Organization [facility] Address [address] [place] [address] Phone Care Team Providers Care Hammerer Tab Name Role Phone Joe Zuleta Primary Care Provider + Encounter Details Date Type Department Care Team (Latest Contact Info) Description 08/13/2024 1:40 PM EDT - 08/13/2024 11:59 PM EDT Hospital Encounter [address] [id number] Discharge Disposition: Home Social History Tobacco Use [...] AM EDT documented as of this encounter Functional Status * Calculated C-SSRS Risk Score (Lifetime/Recent) Answer Date of Assessment Author No Risk Indicated 08/13/2024 9:26 AM EDT Sayda Cline RN * [place] Suicide Severity Rating Scale (Screener/Recent Self-Report) Question Answer Date of Assessment Author 1. Wish to be (Past 1 Month) No 025 9:26 AM EDT Sayda Cline RN 2. Non-Specific Active Suici cas Thoughts (Past 1 Month) No 08/13/2024 9:26 AM EDT Sidney Cline, RN 6. Suicidal Behavior (Lifetime) No 5 9:26 AM EDT Sayda Cline, RN documented as of this encounter Medications at Time of Discharge OLANZapine (ZyPREXA) 2.5 mg tablet Take 1 tablet (2.5 mg) by mouth 2 times a day. 07/31/2024 no115/iron/folic acid ( 19 ORAL) Take 1 tablet by mouth once daily. 02/21/2024 QUEtiapine (SEROquel) 50 mg tablet Take 1 [...] crush, chew, or split. 30 tablet 08/13/2024 ondansetron ODT (Zofran-ODT) 8 mg disintegrating tablet Dissolve 1 tablet (8 mg) in the mouth 4 times a day as needed. 08/04/2024 5 documented as of this encounter Plan of Treatment Not on file documented as of this encounter Procedures Procedure Name Priority Date/Time Associated Diagnosis Comments ECG 12-LEAD STAT 08/13/2024 1:40 PM EDT documented in this encounter Results * ECG 12 lead (08/13/2024 1:40 PM EDT) Ventricular Rate 73 BPM MUSE Atrial Rate 73 BPM MUSE MI Interval 102 ms MUSE QRS Duration 72 ms MUSE QT Interval 380 ms MUSE QTC Calculation(Baze tt) 418 ms MUSE P [place] 81 degrees MUSE R [place] 95 degrees MUSE T [place] 61 degrees MUSE QRS Count 12 beats MUSE Q Onset 220 ms MUSE P Onset 169 ms MUSE P Offset 202 ms MUSE T Offset 410 ms MUSE QTC Fredericia 405 ms MUSE 08/13/2024 9:19 AM EDT 08/14/2024 2:04 PM EDT Narrative MUSE - 08/14/2024 2:04 PM EDT Sinus rhythm with marked sinus arrhythmia with short MI Rightward axis Borderline ECG No previous ECGs available See ED provider note for full interpretation and clinical correlation Confirmed by Lynsey Luna ([id number]) on 08/14/2024 2:04:30 PM Procedure Note Lynsey Luna, CHIEF I DISPATCHER-CORRECTIONAL FOOD SERVICE SUPERVISOR - 08/14/2024 Sinus rhythm with marked sinus arrhythmia with short MI Rightward axis Borderline ECG No previous ECGs available See ED provider note for full interpretation and clinical correlation Confirmed by Lynsey Luna ([id number]) on 08/14/2024 2:04:30 PM us Milan Bautista DO ECG ORDERABLES Final Res ult MUSE documented in this encounter Visit Diagnoses Not on filedocumented in this encounter Care Teams Hammerer Tab Relationship Specialty Start Date End Date Joe Zuleta DO [address] [facility] [place] [address] PCP - General Family Medicine 08/13/24 documented as of this encounter
--- OUTSIDE RECORDS SUMMARY | 2024-08-13 16:15 | XMS_ITS | Encounter Summary ---
Author Organization [facility] Address [address] [place] [address] Care Team Providers Care Estimator Paperboard Boxes Name Role Phone Joe Welch DO Primary Care Provider [phone] Reason for Visit * Reason Comments Follow-up Chest pain, intracta ble vomiting Encounter Details Date Type Department Care Team (Late st Contact Info) Description 08/13/2024 4:15 PM EDT Telemedicine [facility] [address] [place] [address] Joe Welch DO [address] [place] [address] Diffuse esophageal spasm (Primary Dx) Social History Tobacco Use Types Packs/Day Years Used Date Smoking Tobacco: Never Smokeless Tobacco: Never Alcohol Use Standard Drinks/Week Comments Not Currently 0 (1 standard drink = 0.6 oz pur e alcohol) [facility] Utilities Answer Date Recorded In the past 12 months has a[employer]al[employer], gas, oil, or water [employer] threatened to shut off services in your home? No 07/07/2024 PHQ-2 Answer Date Recorded PHQ-9 Total Score 0 07/07/2024 Exercise Vital Sign Answer Date Recorde d On average, how many days pe r week do you engage in moderate to strenuous exercise (like a brisk walk)? 1 day 07/06/2024 On average, how many minutes do you engage in exercise at this level? 30 min 07/06/2024 Hunger Vital Sign Answer Date Recorded Within the past 12 months, y ou worried that your food would run out before you got the money to buy more. Never true 07/08/19 25 Within the past 12 months, t he food you bought just didn't last and you didn't have money to get more. Never true 07/07/2024 PRAPARE - Transportation Answer Date Re corded In the past 12 months, has l ack of transportation kept you from medical appointments or from getting medications? No 07/2024 In the past 12 months, has l ack of transportation kept you from meetings, work, or from getting things needed for daily living? No 07/07/2024 Housing Stability Vital Sign Answer David e Recorded In the last 12 months, was t here a time when you were not able to pay the mortgage or rent on time? No 07/07/2024 In the past 12 months, how m any times have you moved where you were living? 0 07/07/2024 At any time in the past 12 m onths, were you homeless or living in a care home (including now)? No 07/07/2024 Food Insecurity Answer Date Recorded Within the past 12 months, y ou worried that your food would run out before you got the money to buy more. 1 07/07/2024 Within the past 12 months, t he food you bought just didn't last and you didn't have money to get more. 1 07/07/2024 Comments Unknown Sex and Gender Information Value Date Recorded Sex Assigned at Not on file Legal Sex Female 2:08 PM EDT Gender Identity Not on file Sexual Orientation Not on file documented as of this encounter Progress Notes * Joe Welch, - 08/13/2024 4:13 PM EDT Images from the original note were not included. Sue Colón, was evaluated through a synchronous (real-time) audio-video encounter. The patient (orguardian if applicable) is aware that this is a billable service, which includes applicable co-pays. This Virtual Visit was conducted with patient's (and/or legal guardian's) consent. Patient identifi cation was verified, and a caregiver was present when appropriate. The patient was located at Home: [address] [place] [id number] Provider was located at Facility (Appt Dept): [address] [place] [address] Confirm you are appropriately licensed, registered, or certified to deliver care in the state wherethe patient is located as indicated above. If you are not or unsure, please re-schedule the visit: Yes, I confirm. uSe Colón (: 1995) is a Established patient, presenting virtually for evaluation of the following: Below is the assessment and plan developed based on review of pertinent history, physical exam, labs, studies, and medications. Assessment & Plan 1. Chest pain. - Symptoms suggest a possible esophageal spasm or hiatal hernia, potentially causing the stomach toslide into the chest cavity and trigger the pain. - Chest x-ray reviewed, showing no evidence of a hiatal hernia, but esophageal spasm cannot be ruled out. - Upper GI study recommended to investigate the possibility of a hiatal hernia, despite radiation exposure. - Hyoscyamine sublingual tablets prescribed, to be taken every [address] Meade will becontacted to discuss this treatment plan. Hospitalization for intravenous fluid administration may be necessary if pain persists. Assessment & Plan Diffuse esophageal spasm Orders: hyoscyamine (LEVSIN/SL) 0.125 MG sublingual tablet; Place 1 tablet under the tongue every 4 hours as needed for Cramping No follow-ups on file. Subjective HPI Review of Systems History of Present Illness The patient presents via virtual visit for evaluation of chest pain. She has been experiencing persistent chest pain since 1:30 AM, which has not subsided despite medication. The pain is described as severe and radiates to her glutes and upper back. She reports that the pain intensifies upon palpation of her chest. She was previously evaluated at [facility], where the cause of her pain was attributed to her . Despite this, she was not prescribed any analgesics. She was administered a small dose of Dilaudid intravenously, which did not alleviate her pain. She was discharged with instructions to follow up with her wrap checker. She was also advised to take pantoprazole and cough medicine, neither of which provided relief. She has been unable to retain nifedipine, vomiting it up on the first attempt and failing to keep it down on the second. She has not been given sublingual nitroglycerin. She has been using Zofran, which has not been effective in managing her symptoms. She has abstained from smoking due to her chestpain. She underwent a chest x-ray at [facility], during which her abdomen was not shielded. Her last meal was yesterday at 8:30 PM, which she vomited at 1:30 AM. She has been attempting to stay hydrated by drinking water, but has been unable to keep it down. She reports feeling weak and dehydrated. She had a similar episode last year, which resolved spontaneously. An upper GI endoscopy performed at that time was normal. She is currently 14 weeks . SOCIAL HISTORY She does not smoke. Objective Patient-Reported Vitals No data recorded Physical Exam [INSTRUCTIONS: [x] Indicates a positive item [] Indicates a negative item -- DELETE ALL ITEMS NOT EXAMINED] Constitutional: [x] Appears well-developed and well-nourished [x] No apparent distress [] Abnormal - Mental status: [x] Alert and awake [x] Oriented to person/place/time [x] Able to follow commands [] Abnormal - Eyes: EOM [x] Normal [] Abnormal - Sclera [x] Normal [] Abnormal - Discharge [x] None visible [] Abnormal - HENT: [x] Normocephalic, atraumatic [] Abnormal - [x] Mouth/Throat: Mucous membranes are moist External Ears [x] Normal [] Abnormal - Neck: [x] No visualized mass [] Abnormal - Pulmonary/Chest: [x] Respiratory effort normal [x] No visualized signs of difficulty breathing or respiratory distress [] Abnormal - Musculoskeletal: [x] Normal gait with no signs of ataxia [x] Normal range of motion of neck [] Abnormal - Neurological: [x] No Facial Asymmetry (Cranial nerve 7 motor function) (limited exam due to video visit) [x] No gaze palsy [] Abnormal - Skin: [x] No significant exanthematous lesions or discoloration noted on facial skin [] Abnormal - Psychiatric: [x] Normal Affect [] Abnormal - [x] No Hallucinations Other pertinent observable physical exam findings:- --JOE WELCH DO documented in this encounter Plan of Treatment Not on file documented as of this encounter Visit Diagnoses Diagnosis Diffuse esophageal spasm- Primary Dyskinesia of esophagus documented in this encounter Care Teams Estimator Paperboard Boxes Relationship Specialty Start Date End Date Joe Welch DO [address] [place] [address] PCP - General Family Medicine 07/16/24 documented as of this encounter
--- OUTSIDE RECORDS SUMMARY | 2024-08-14 22:14 | XMS_ITS | Encounter Summary ---
Author Organization [facility] Address [address] [facility] [place] [address] Phone Care Team Providers Care Institutional Asset Manager Name Role Phone Joe Zuleta DO Primary Care Provider + Reason for Referral * Consultation (Routine) - Authorized Specialty Diagnoses / Procedures Referred By Contac t Referred To Contact Gastroenterology Diagnoses Nausea and vomiting, unspecified vomiting type Chest pain, [place] [address] [place] [address] Phone: tel: fax: Referral ID Status Reason Start Date Expiration Date Visits Requested Visits Authorized [id number] Authorized Specialty Services Required 08/15/2024 08/15/2025 1 1 Reason for Visit * Auth/Cert Specialty Diagnoses / Procedures Referred By Contac t Referred To Contact Diagnoses 14 weeks gestation of ([facility]) [place] [address] [place] [address] Phone: tel: fax: [facility] Emergency Medicine [id number] [place] [phone] Phone: tel: fax: Referral ID Status Reason Start Date Expiration Date Visits Re quested Visits Authorized [id number] 1 1 Encounter Details Date Type Department Care Team (Late st Contact Info) Description 08/14/2024 10:14 PM EDT - 08/15/2024 9:40 PM EDT Hospital Encounter [place] [id number] [place] [id number] Joan Dobson MD [id number] [place] [address] Department of Emergency Medicine [place] [phone] Lenka [place]garry [place] [id number] [place] [address] Department of Emergency Medicine [place] [phone] Chiquita Sandoval MD [address] [place], [place] [phone] [place] [address] [facility] Department [place] [address] Mery Lizarraga MD [address] [place] [address] Department of Emergency Medicine [place] [phone] 15 weeks gestation of ([facility]) (Primary Dx); Nausea and vomiting, unspecified vomiting type; Chest pain, unspecified type Discharge Disposition: Home Social History Tobacco Use Types Packs/Day Years Used Date Smoking Tobacco: Never Smokeless Tobacco: Never Tobacco Cessation:Counseling Given: Not Answered Humiliation, Afraid, Rape, and Kick questionnair e Answer Date Recorded Within the last year, have y ou been afraid of your partner or ex-partner? No 08/15/2024 Within the last year, have y ou been humiliated or emotionally abused in other ways by your partner or ex-partner? No Within the last year, have y ou been kicked, hit, slapped, or otherwise physically hurt by your partner or ex-partner? No 08/15/2024 Within the last year, have y ou been raped or forced to have any kind of sexual activity by your partner or ex-partner? No 08/15/2024 AUDIT-C Answer Date Recorded Q1: How often do you have a drink containing alcohol? Never 08/15/2024 Q2: How many drinks containi ng alcohol do you have on a typical day when you are drinking? Patient does not drink Q3: How often do you have si x or more drinks on one occasion? Never 08/15/2024 Overall Financial Resource Strain (CARDIA) Answe r Date Recorded How hard is it for you to pa y for the very basics like food, housing, medical care, and heating? Not hard at all 08/15/2024 PHQ-2 Answer Date Recorded Patient Health Questionnaire-2 Score 1 08/15/2024 Hunger Vital Sign Answer Date Recorded Within the past 12 months, y ou worried that your food would run out before you got the money to buy more. Never true 08/16/19 25 Within the past 12 months, t he food you bought just didn't last and you didn't have money to get more. Never true 08/15/2024 PRAPARE - Transportation Answer Date Re corded In the past 12 months, has l ack of transportation kept you from medical appointments or from getting medications? No 08/03 In the past 12 months, has l ack of transportation kept you from meetings, work, or from getting things needed for daily living? No 08/15/2024 Estimated Date of Delivery Comme nts Yes 02/12/2025 Date entered librado or to episode creation Sex and Gender Information Value Date Recorded [...] Sign Reading Time Taken Comments Blood Pressure 130/82 08/15/2024 3:53 PM EDT Pulse 77 08/15/2024 3:53 PM EDT Temperature 36.9 C (98.4 F) 08/15/2024 3:53 PM EDT Respiratory Rate 18 08/15/2024 3:53 PM EDT Oxygen Saturation 99% 08/15/2024 3:53 PM EDT Inhaled Oxygen Concentration - - Weight 52.6 kg (116 lb) 08/14/2024 10:08 PM EDT Height 167.6 cm (5' 6 ) 08/14/2024 10:08 PM EDT Body Mass Index 18.72 08/14/2024 10:08 PM EDT documented in this encounter Functional Status * Audit-C Score Answer Date of Assessment Author 0 08/15/2024 8:29 PM EDT Isabella Harris RN * Question Answer Date of Assessment Author Q1: How often do you have a drink containing alcohol? Never 08/15/2024 8:29 PM EDT Hang Harris RN Q2: How many drinks containing alcohol do you have on a typical day when you are drinking? Patient does not drink 08/15/2024 8:29 PM EDT Isabella Harris RN Q3: How often do you have six or more drinks on one occasion? Never 08/15/2024 8:29 PM EDT Santi Harris RN * Over the past 2 weeks, how often have you been bothered by any of the following problems? Question Answer Date of Assessment Author Patient Health Questionnaire -2 Score 1 08/15/2024 2:13 PM EDT Brittany Diez RN * Calculated C-SSRS Risk Score (Lifetime/Recent) Answer Date of Assessment Author No Risk Indicated 08/15/2024 2:01 PM EDT Brittany Diez RN * [place] Suicide Severity Rating Scale (Screener/Recent Self-Report) Question Answer Date of Assessment Author 1. Wish to be (Past 1 Month) No 025 2:01 PM EDT Brittany Diez RN 2. Non-Specific Active Suici cas Thoughts (Past 1 Month) No 08/15/2024 2:01 PM EDT Neelima Diez RN 6. Suicidal Behavior (Lifetime) No 2:01 PM EDT Brittany Diez RN * Question Answer Date of Assessment Author Little interest or pleasure in doing things Not at all 08/15/2024 2:13 PM EDT Brittany Diez RN Feeling down, depressed, or hopeless Several days 08/15/2024 2:13 PM EDT Brittany Diez RN documented as of this encounter Discharge Summaries * Leila Oneill MD - 08/15/2024 8:02 PM EDT Discharge Diagnosis 14 weeks gestation of ([facility]) Test Results Pending At Discharge Pending Labs No current pending labs. Hospital Course 28 y.o. at 14w1d here for admitted for n/v in . She initially presented for worsening chest and epigastric pain. Antiemetics given Echo performed to rule out pericarditis and found to be wnl. GI consulted. Prior work up including US gallbladder at OSH in 06/2024, EGD and colonoscopy 10/2023without acute findings to explain patient's symptoms. they recommended abdominal ultrasound. Patient desired discharge prior to ultrasound being performed. GI outpatient referral placed. Recommend following up with PCP as well. Ok from OB standpoint to perform EGD if GI team deems appropriate. Overall, suspect cannabis induced hyperemesis vs n/v of . Patient found rectal tylenol, zofran, capsaicin cream most helpful and was Rxed. status remained reassuring during admission. Visit Vitals BP 130/82 (BP Location: Left arm, Patient Position: Lying) Pulse 77 Temp 36.9 ??C (98.4 ??F) (Temporal) Resp 18 Vitals: 08/14/24 2208 Weight: 52.6 kg (116 lb) Pertinent Physical Exam At Time of Discharge General - sitting in shower, appears comfortable CV - regular rate Resp - no excessive respiratory effort Abd - soft, no masses, tenderness to palpation in the RUQ and epigastric area. No rebound. No guarding. No tenderness in her lower abdominal area. Skin - no rashes FHT: 165 Home Medications Medication List START taking these medications acetaminophen 650 mg suppository; Commonly known as: Tylenol; Insert 1 suppository (650 mg) into the rectum every 6 hours. capsicum 0.075 % topical cream; Commonly known as: Zostrix; Apply topically 3 times a day. hydrOXYzine HCL 25 mg tablet; Commonly known as: Atarax; Take 1 tablet (25 mg) by mouth every 8 hours if needed for itching or anxiety. Mylanta Coat-Cool 1,200 mg-270 mg -80 mg/10 mL suspension; Generic drug: calcium carb-mag hydrox-simeth; Take 10 mL by mouth every 8 hours if needed (heartburn). CHANGE how you take these medications ondansetron ODT 8 mg disintegrating tablet; Commonly known as: Zofran-ODT; Dissolve 1 tablet (8 mg) in the mouth every 8 hours if needed for nausea or vomiting.; What changed: when to take this, reasons to take this CONTINUE taking these medications OLANZapine 2.5 mg tablet; Commonly known as: ZyPREXA * pantoprazole 20 mg EC tablet; Commonly known as: ProtoNix * pantoprazole 40 mg EC tablet; Commonly known as: ProtoNix; Take 1 tablet (40 mg) by mouth once daily in the morning. Take before meals. Do not crush, chew, or split. 19 ORAL QUEtiapine 50 mg tablet; Commonly known as: SEROquel * This list has 2 medication(s) that are the same as other medications prescribed for you. Read the directions carefully, and ask your doctor or other care provider to review them with you. Outpatient Follow-Up No future appointments. Discussed with Dr. Jaime Oneill MD Cosigned by Chiquita Sandoval MD at 08/16/2024 9:46 AM EDT documented in this encounter Discharge Instructions * Discharge Instr - AVS First Page* Isabella Harris RN - 08/15/2024 8:37 PM EDT Call your OB provider for contractions (tightening, balling up ) more than 4-6 times an hour; constant menstrual-like cramps in your lower belly; low, dull backache different from what you normally have; increased pressure or pain in your pelvis, lower belly, back or thighs; increased vaginal discharge or mucus- like watery or bloody discharge; red vaginal bleeding; leaking amniotic fluid ( waterbreaks ); chills or fever of 100.4 F or above; severe headache that does not go away; blurry vision; decreased baby movements; feeling that something is not right ; feeling depressed or unable to cope documented in this encounter Medications at Time of Discharge OLANZapine (ZyPREXA) 2.5 mg tablet Take 1 tablet (2.5 mg) by mouth 2 times a day. 5 no115/iron/folic acid ( 19 ORAL) Take 1 tablet by mouth once daily. 4 02/21/20 25 QUEtiapine (SEROquel) 50 mg tablet Take 1 tablet (50 mg) by mouth 2 times a day. 5 acetaminophen (Tylenol) 650 mg suppositoryIndicati ons:Nausea and vomiting, unspecified vomiting type,Chest pain, unspecified type Insert 1 suppository (650 mg) into the rectum every 6 hours. 60 suppository 5 calcium carb-mag hydrox-simeth (Mylanta Coat-Cool) 1,200 mg-270 mg -80 mg/10 mL suspensionIndicatio ns:Nausea and vomiting, unspecified vomiting type,Chest pain, unspecified type Take 10 mL by mouth every 8 hours if needed (heartburn). 355 mL 5 capsicum (Zostrix) 0.075 % topical creamIndications:Na usea and vomiting, unspecified vomiting type,Chest pain, unspecified type Apply topically 3 times a day. 57 g 5 hydrOXYzine HCL (Atarax) 25 mg tabletIndications:N ausea and vomiting, unspecified vomiting type,Chest pain, unspecified type Take 1 tablet (25 mg) by mouth every 8 hours if needed for itching or anxiety. 20 tablet 5 ondansetron ODT (Zofran-ODT) 8 mg disintegrating tabletIndications:N ausea and vomiting, unspecified vomiting type,Chest pain, unspecified type Dissolve 1 tablet (8 mg) in the mouth every 8 hours if needed for nausea or vomiting. 20 tablet 5 pantoprazole (ProtoNix) 20 mg EC tablet Take 1 tablet (20 mg) by mouth once daily in the morning. Take before meals. Do not crush, chew, or split. pantoprazole (ProtoNix) 40 mg EC tabletIndications:N ausea and vomiting, unspecified vomiting type Take 1 tablet (40 mg) by mouth once daily in the morning. Take before meals. Do not crush, chew, or split. 30 tablet 5 08/14/19 26 documented as of this encounter H&P Notes * Rose Claire MD - 08/15/2024 3:13 AM EDT Obstetrical Admission History and Physical Sue Colón is a 28 y.o. at 14w1d with Estimated Date of Delivery: 02/12/25. She was admitted in the setting of gradually worsening chronic abdominal/chest pain leading to persistent vomiting. ASSESSMENT AND PLAN Chest/Abdominal Pain, Vomiting - persistent vomiting caused by persistent abdominal pain. Patient states she has no nausea. Unclear etiology, but GI in source, possibly esophageal spasms. Cf vanessa vega tears with bleeding and longstanding history of vomiting since June. Cf for marijuana induced hyperemsis with UDS pending, cf constipation, patient with intermittent small bowel movements improved with magnesium citrate, last BM 08/13 - neg CXR, neg troponin, neg lipase, KUB pending, patient consented verbally and agreeable - Weight at start of , end of June 110, today 116lbs - ketosis BHB 0.43, VBG w respiratory alkalosis, given D5LR in ED, continued, +urine ketones, for daily urine dips - Antiemetic regimen: zofran, reglan, benadryl, pantoprazole, scopolamine patch scheduled, compazine PRN - replete electrolytes - dilaudid 0.2mg q3 for pain - GI consulted, will see in AM, fu recs IUP -PNLs reviewed wnl Bipolar - home seroquel and olanzapine continued - euthymic Rose Claire, PGY4 OBGYN To be Seen and discussed with Dr. Sandoval SUBJECTIVE Patient is a 28yo at 14.1wga by IVF implantation date presenting for upper abdominal/chest pain that radiates to her back that is constant causing persistent intractable vomiting since June gradually worsening since and then acutely worsening the past couple days. She states she has even considered ending the because of the terrible nausea vomiting. No vb, no lower abdominal cramping. Notables - IV implantation at 0w5d 05/27, [place] 02/12, Dating US 06/30 7.5wga, all PNLs wnl 03/15/24 - Endometriosis dx by laparoscopy with excision and fimbrioplasty - marijuana use disorder, smokes blunts daily, has medical card - Bipolar Disorder, on seroquel and olanzapine Obstetrical History OB History 3 Para 1 Term 1 AB 1 Living 1 SAB 1 IAB Ectopic Multiple Live Births 1 Past Medical History Medical History[1] Past Surgical History Surgical History[2] Social History Social History[3] Allergies RX Allergies[4] Medications Scheduled medications Scheduled Medications[5] Continuous medications Continuous Medications[6] PRN medications PRN Medications[7] Objective Last Vitals Visit Vitals BP 121/74 Pulse 82 Temp 36.8 ??C (98.3 ??F) Resp 20 Physical Examination Abdomen: tender to palpation in epigastric area and LUQ and RUQ, no rebound, no guarding, nontenderin lower quadrants Pulm: normal respiratory effort Cardiac: regular rhythym [1] Past Medical History: Diagnosis Date Anxiety Bipolar 1 disorder (Multi) [2] Past Surgical History: Procedure Laterality Date LAPAROSCOPY DIAGNOSTIC / BIOPSY / ASPIRATION / LYSIS endometeriosis [3] Social History Socioeconomic History Marital status: Tobacco Use Smoking status: Never Smokeless tobacco: Never Substance and Sexual Activity Drug use: Yes Types: Marijuana Social Drivers of Health Food Insecurity: No Food Insecurity (07/07/2024) Received from [facility] Hunger Vital Sign Worried About Running Out of Food in the Last Year: Never true Ran Out of Food in the Last Year: Never true Transportation Needs: No Transportation Needs (07/07/2024) Received from [facility] PRAPARE - Transportation Lack of Transportation (Medical): No Lack of Transportation (Non-Medical): No Physical Activity: Insufficiently Active (07/06/2024) Received from [facility] Exercise Vital Sign Days of Exercise per Week: 1 day Minutes of Exercise per Session: 30 min [4] No Known Allergies [5] diphenhydrAMINE, 25 mg, intravenous, q6h magnesium sulfate, 2 g, intravenous, Once metoclopramide, 10 mg, intravenous, q6h THOMAS OLANZapine, 2.5 mg, oral, BID ondansetron, 4 mg, intravenous, q6h pantoprazole, 40 mg, intravenous, Daily potassium chloride, 20 mEq, intravenous, q2h vitamin (iron-folic), 1 tablet, oral, Daily QUEtiapine, 50 mg, oral, BID scopolamine, 1 patch, transdermal, q72h [6] dextrose 5 % and lactated Ringer's, 125 mL/hr [7] PRN medications: bisacodyl, calcium carbonate, hydrALAZINE, HYDROmorphone, labetaloL, lidocaine, magnesium hydroxide, NIFEdipine, polyethylene glycol, prochlorperazine OR prochlorperazine OR prochlorperazine, simethicone Cosigned by Chiquita Sandoval MD at 08/15/2024 9:09 AM EDT Associated attestation - Chiquita Sandoval MD - 08/15/2024 9:09 AM EDT I saw and evaluated the patient. I personally obtained the ferris and critical portions of the historyand physical exam or was physically present for ferris and critical portions performed by the resident/fellow. I reviewed the resident/fellow's documentation and discussed the patient with the resident/f jer. I agree with the resident/fellow's medical decision making as documented in the note with the exception/addition of the following: IVF with atypical HEG. Minimal response to anti-emetics. Vomiting precipitated by severe chest pain radiating to her back. Etiology of chest pain unclear but warrants further workup. Patient with history of daily cannabis use thus vomiting could be cyclic in nature and given persistence aMallory Vega tear is possible. Recommend: - GI consult with strong preference for a scope to assess the esophagus. - Maternal echo. - One time dose of IV toradol, if underlying pericarditis should feel some improvement. Chiquita Sandoval MD Maternal Medicine Director of Intervention documented in this encounter Consult Notes * Des Barnett MD - 08/15/2024 8:36 AM EDTAssociated Order(s): IP CONSULT TO GASTROENTEROLOGY [facility] INITIAL CONSULT NOTE Reason For Consult Abdominal pain, nausea/vomiting SUBJECTIVE History Of Present Illness Sue Colón is a 28 y.o. female with a past medical history of bipolar disorder, anxiety disorder, eating disorder, marijuana use admitted on 08/14/2024 with chest and abdominal pain and uncontrolled nausea/vomiting. GI is consulted for further evaluation of her symptoms. Patient has been experiencing episodes of chest and abdominal pain and nausea/vomiting since the beginning of her in June and has been seen multiple times by her PCP and also in ED's for her symptoms over the past month. Cardiac workup has previously been negative. She reports she had one episode of similar symptoms with nausea/vomiting and pain in July of last year, during which time she was evaluated in an ED and given a GI cocktail which alleviated her symptoms. She has not had recurrence of her symptoms until she became . She was diagnosed with esophagitis and for her symptoms has been prescribed pantoprazole, pepcid, and carafate which have not helped. Her pain has been persistent and was felt to potentially have esophageal spasms by her PCP for which she was prescribed nifedipine and also sublingual nitroglycerin. Per chart review, reportedly underwent an EGD andcolonoscopy in 11/2023 at [facility]. Report for this is not readily available at this time however, it was noted to be normal per her PCP and also per the patient. Per patient, at baseline she has nausea associated with food and food texture, and thus smokes marijuana every day since 2018 to help her tolerate food and eat. She last smoked on Sunday at 1:30AM. She does note that hot showers usually help her symptoms. She denies any alcohol use. She was previously about 11 years ago to term and then again in 2015 but unfortunately had a miscarriage at about 10 weeks. She did not have as significant nausea/vomiting with those prior pregnancies. While here, workup included labs notable for Hgb within normal at 13.6 and leukocytosis of 16.7 on presentation, negative troponins, and negative lipase. UDS performed positive for cannabinoids and positive for opiates (however in setting of recent dilaudid by ED). Imaging with abdominal XR as performed, which was unremarkable. Prior CXR from 08/13 also unremarkable. She was recommended to be given nifedipine for esophageal spasms per chili powder mixer however she was unable to tolerate PO intake and thus given IV labetalol instead. Review of Systems Review of systems was performed and is otherwise negative except as noted in HPI. Past Medical History: Medical History[1] Home Medications Prescriptions Prior to Admission[2] Surgical History: Surgical History[3] Allergies: Allergies[4] Social History: Social History Socioeconomic History Marital status: Spouse name: Not on file Number of children: Not on file Years of education: Not on file Highest education level: Not on file Occupational History Not on file Tobacco Use Smoking status: Never Smokeless tobacco: Never Substance and Sexual Activity Alcohol use: Not on file Drug use: Yes Types: Marijuana Sexual activity: Not on file Other Topics Concern Not on file Social History Narrative Not on file Social Drivers of Health Financial Resource Strain: Not on file Food Insecurity: No Food Insecurity (07/07/2024) Received from [facility] Hunger Vital Sign Worried About Running Out of Food in the Last Year: Never true Ran Out of Food in the Last Year: Never true Transportation Needs: No Transportation Needs (07/07/2024) Received from [facility] PRAPARE - Transportation Lack of Transportation (Medical): No Lack of Transportation (Non-Medical): No Physical Activity: Insufficiently Active (07/06/2024) Received from [facility] Exercise Vital Sign Days of Exercise per Week: 1 day Minutes of Exercise per Session: 30 min Stress: Not on file Social Connections: Not on file Intimate Partner Violence: Not on file Family History: Family History[5] EXAM Vitals: Vitals: 08/14/24 2208 08/15/24 0200 08/15/24 0500 BP: 127/64 121/74 134/80 Pulse: 85 82 88 Resp: 16 20 20 Temp: 37.4 ??C (99.3 ??F) 36.8 ??C (98.3 ??F) 37 ??C (98.6 ??F) TempSrc: Temporal Temporal SpO2: 96% 98% 97% Weight: 52.6 kg (116 lb) Height: 1.676 m (5' 6 ) Failed to redirect to the Timeline version of the [employer] Smart[employer]. No intake or output data in the 24 hours ending 08/15/24 0837 Physical Exam General: Appears uncomfortable, vomiting HEENT: PERRLA, EOM intact, no scleral icterus, moist MM Respiratory: CTA bilaterally, normal work of breathing Cardiovascular: RRR, no murmurs/rubs/gallops Abdomen: Pain with touch to abdomen, unable to fully palpate Extremities: no edema, no asterixis Neuro: alert and oriented, CNII-XII grossly intact, moves all 4 extremities with no focal deficits OBJECTIVE Medications Current Medications[6] Labs Results for orders placed or performed during the hospital encounter of 08/14/24 (from the past 24 hours) ECG 12 lead Result Value Ref Range Ventricular Rate 82 BPM Atrial Rate 82 BPM SD Interval 118 ms QRS Duration 70 ms QT Interval 362 ms QTC Calculation(Bazett) 422 ms P Heartwell 78 degrees R Heartwell 93 degrees T Heartwell 46 degrees QRS Count 14 beats Q Onset 220 ms P Onset 161 ms P Offset 204 ms T Offset 401 ms QTC Fredericia 401 ms CBC and Auto Differential Result Value Ref Range WBC 12.9 (H) 4.4 - 11.3 x10*3/uL nRBC 0.0 0.0 - 0.0 /100 WBCs RBC 3.68 (L) 4.00 - 5.20 x10*6/uL Hemoglobin 10.9 (L) 12.0 - 16.0 g/dL Hematocrit 30.4 (L) 36.0 - 46.0 % MCV 83 80 - 100 fL MCH 29.6 26.0 - 34.0 pg MCHC 35.9 32.0 - 36.0 g/dL RDW 14.3 11.5 - 14.5 % Platelets 251 150 - 450 x10*3/uL Neutrophils % 83.6 40.0 - 80.0 % Immature Granulocytes %, Automated 0.6 0.0 - 0.9 % Lymphocytes % 10.8 13.0 - 44.0 % Monocytes % 4.8 2.0 - 10.0 % Eosinophils % 0.0 0.0 - 6.0 % Basophils % 0.2 0.0 - 2.0 % Neutrophils Absolute 10.80 (H) 1.20 - 7.70 x10*3/uL Immature Granulocytes Absolute, Automated 0.08 0.00 - 0.70 x10*3/uL Lymphocytes Absolute 1.39 1.20 - 4.80 x10*3/uL Monocytes Absolute 0.62 0.10 - 1.00 x10*3/uL Eosinophils Absolute 0.00 0.00 - 0.70 x10*3/uL Basophils Absolute 0.02 0.00 - 0.10 x10*3/uL Comprehensive metabolic panel Result Value Ref Range Glucose 107 (H) 74 - 99 mg/dL Sodium 136 136 - 145 mmol/L Potassium 3.3 (L) 3.5 - 5.3 mmol/L Chloride 103 98 - 107 mmol/L Bicarbonate 25 21 - 32 mmol/L Anion Gap 11 10 - 20 mmol/L Urea Nitrogen 10 6 - 23 mg/dL Creatinine 0.46 (L) 0.50 - 1.05 mg/dL eGFR >90 >60 mL/min/1.73m*2 Calcium 9.0 8.6 - 10.6 mg/dL Albumin 3.6 3.4 - 5.0 g/dL Alkaline Phosphatase 35 33 - 110 U/L Total Protein 5.8 (L) 6.4 - 8.2 g/dL AST 11 9 - 39 U/L Bilirubin, Total 0.4 0.0 - 1.2 mg/dL ALT 14 7 - 45 U/L Lipase Result Value Ref Range Lipase 16 9 - 82 U/L Troponin I, High Sensitivity Result Value Ref Range Troponin I, High Sensitivity (CMC) <3 0 - 34 ng/L Blood Gas Venous Full Panel Result Value Ref Range POCT pH, Venous 7.48 (H) 7.33 - 7.43 pH POCT pCO2, Venous 36 (L) 41 - 51 mm Hg POCT pO2, Venous 86 (H) 35 - 45 mm Hg POCT SO2, Venous 98 (H) 45 - 75 % POCT Oxy Hemoglobin, Venous 94.8 (H) 45.0 - 75.0 % POCT Hematocrit Calculated, Venous 35.0 (L) 36.0 - 46.0 % POCT Sodium, Venous 134 (L) 136 - 145 mmol/L POCT Potassium, Venous 3.4 (L) 3.5 - 5.3 mmol/L POCT Chloride, Venous 103 98 - 107 mmol/L POCT Ionized Calicum, Venous 1.22 1.10 - 1.33 mmol/L POCT Glucose, Venous 108 (H) 74 - 99 mg/dL POCT Lactate, Venous 0.7 0.4 - 2.0 mmol/L POCT Base Excess, Venous 3.3 (H) -2.0 - 3.0 mmol/L POCT HCO3 Calculated, Venous 26.8 (H) 22.0 - 26.0 mmol/L POCT Hemoglobin, Venous 11.5 (L) 12.0 - 16.0 g/dL POCT Anion Gap, Venous 8.0 (L) 10.0 - 25.0 mmol/L Patient Temperature 37.0 degrees Celsius FiO2 21 % Beta Hydroxybutyrate Result Value Ref Range Beta-Hydroxybutyrate 0.43 (H) 0.02 - 0.27 mmol/L Human Chorionic Gonadotropin, Serum Quantitative Result Value Ref Range HCG, Beta-Quantitative 41,624 (H) <5 mIU/mL Urinalysis with Reflex Culture and Microscopic Result Value Ref Range Color, Urine Yellow Light-Yellow, Yellow, Dark-Yellow Appearance, Urine Clear Clear Specific [place], Urine 1.023 1.005 - 1.035 pH, Urine 6.0 5.0, 5.5, 6.0, 6.5, 7.0, 7.5, 8.0 Protein, Urine 20 (TRACE) NEGATIVE, 10 (TRACE), 20 (TRACE) mg/dL Glucose, Urine Normal Normal mg/dL Blood, Urine NEGATIVE NEGATIVE mg/dL Ketones, Urine 40 (2+) (A) NEGATIVE mg/dL Bilirubin, Urine NEGATIVE NEGATIVE mg/dL Urobilinogen, Urine Normal Normal mg/dL Nitrite, Urine NEGATIVE NEGATIVE Leukocyte Esterase, Urine NEGATIVE NEGATIVE Urinalysis Microscopic Result Value Ref Range WBC, Urine 6-10 (A) 1-5, NONE /HPF RBC, Urine 3-5 NONE, 1-2, 3-5 /HPF Squamous Epithelial Cells, Urine 1-9 (SPARSE) Reference range not established. /HPF Mucus, Urine 3+ Reference range not established. /LPF Drug Screen, Urine Result Value Ref Range Amphetamine Screen, Urine Presumptive Negative Presumptive Negative Barbiturate Screen, Urine Presumptive Negative Presumptive Negative Benzodiazepines Screen, Urine Presumptive Negative Presumptive Negative Cannabinoid Screen, Urine Presumptive Positive (A) Presumptive Negative Cocaine Metabolite Screen, Urine Presumptive Negative Presumptive Negative Fentanyl Screen, Urine Presumptive Negative Presumptive Negative Opiate Screen, Urine Presumptive Positive (A) Presumptive Negative Oxycodone Screen, Urine Presumptive Negative Presumptive Negative PCP Screen, Urine Presumptive Negative Presumptive Negative Methadone Screen, Urine Presumptive Negative Presumptive Negative POCT , urine Result Value Ref Range Preg Test, Ur Positive (A) Magnesium Result Value Ref Range Magnesium 1.83 1.60 - 2.40 mg/dL Basic metabolic panel Result Value Ref Range Glucose 137 (H) 74 - 99 mg/dL Sodium 133 (L) 136 - 145 mmol/L Potassium 3.6 3.5 - 5.3 mmol/L Chloride 101 98 - 107 mmol/L Bicarbonate 23 21 - 32 mmol/L Anion Gap 13 10 - 20 mmol/L Urea Nitrogen 12 6 - 23 mg/dL Creatinine 0.54 0.50 - 1.05 mg/dL eGFR >90 >60 mL/min/1.73m*2 Calcium 8.8 8.6 - 10.6 mg/dL Beta Hydroxybutyrate Result Value Ref Range Beta-Hydroxybutyrate 0.11 0.02 - 0.27 mmol/L Imaging XR Abdomen 08/15/24: IMPRESSION: Nonobstructive bowel gas pattern. US Gallbladder 06/19/24 - report obtained via [facility] FINDINGS: Normal echogenicity and contour of the liver. No liver lesion or intrahepatic biliary dilatation identified. Liver length measured at approximately 17.6 cm. The gallbladder is physiologically distended. No cholelithiasis or pericholecystic fluid. Gallbladder wall thickness is normal measured at approximately 2.1 mm. Common bile duct is normal measuring approximately 2.9 mm in diameter. No overt abnormality of the pancreas. GI Procedures EGD 10/15/23 - report obtained via [facility] Findings 1. Normal esophagus. Z-line at 42 cm. Biopsies obtained 2. Erythema in the antrum, mild patchy. Otherwise normal stomach. Biopsies of the stomach were taken to rule out H. pylori. 3. Normal duodenum. Biopsies obtained Final Diagnosis A: STOMACH, BIOPSY: - Antral [...] - No evidence of celiac disease identified. Colonoscopy 10/15/23 - report obtained via [facility] Findings 1. Small internal hemorrhoids 2. Normal colon 3. Normal terminal ileum ASSESSMENT / PLAN ASSESSMENT/PLAN: Sue Colón is a 28 y.o. female with a past medical history of bipolar disorder, anxiety disorder, eating disorder, marijuana use admitted on 08/14/2024 with chest and abdominal pain and uncontrolled nausea/vomiting. GI is consulted for further evaluation of her symptoms. Symptoms most consistent with cannabis hyperemesis syndrome vs. Hyperemesis gravidarum or combination of such. #Nausea/vomiting #Cannabis hyperemesis/hyperemesis gravidarum :: Prior workup including US gallbladder at OSH in 06/2024, EGD and colonoscopy 10/2023 without acute findings to explain patient's symptoms - Obtain abdominal US - Recommend capsaicin cream or other heating cream application if safe during pregancy - Discontinue marijuana use - Given she has had endoscopic exam with EGD and colonoscopy within the past year without acute findings, would be hesitant at this time to pursue further endoscopic evaluation Patient was seen and discussed with Dr. Cates Thank you for this interesting consult. Gastroenterology will continue to follow. -During weekday hours of 7am-5pm please do not hesitate to contact me on [facility]OR Chat or page [phone] ifthere are any further questions between the weekday hours of 7 AM - 5 PM. -After hours, on weekends, and on holidays, [place] [phone]. Thank you. Des Barnett MD PGY-2 Internal Medicine [1] Past Medical History: Diagnosis Date Anxiety Bipolar 1 disorder (Multi) [2] (Not in a hospital admission) [3] Past Surgical History: Procedure Laterality Date LAPAROSCOPY DIAGNOSTIC / BIOPSY / ASPIRATION / LYSIS endometeriosis [4] No Known Allergies [5] No family history on file. [6] Current Facility-Administered Medications: bisacodyl (Dulcolax) suppository 10 mg, 10 mg, rectal, Daily PRN, Rose Claire MD calcium carbonate (Tums) 500 mg (200 mg elemental) chewable tablet 1 tablet, 1 tablet, oral, q6h PRN, Rose Claire MD, 1 tablet at 08/15/24 0806 dextrose 5 % and lactated Ringer's infusion, 125 mL/hr, intravenous, Continuous, Rose Claire MD,Last Rate: 125 mL/hr at 08/15/24 0320, 125 mL/hr at 08/15/24 0320 diphenhydrAMINE (BENADryl) injection 25 mg, 25 mg, intravenous, q6h, Rose Claire MD, 25 mg at 08/15/24 0532 hydrALAZINE (Apresoline) injection 5 mg, 5 mg, intravenous, Once PRN, Rose Claire MD HYDROmorphone (Dilaudid) injection 0.2 mg, 0.2 mg, intravenous, q3h PRN, Rose Claire MD, 0.2 mg at 08/15/24 0644 labetaloL (Normodyne,Trandate) injection 20 mg, 20 mg, intravenous, Once PRN, Rose Claire MD lidocaine (Xylocaine) 10 mg/mL (1 %) injection 0.5 mL, 0.5 mL, subcutaneous, Once PRN, Rose Claire MD magnesium hydroxide (Milk of Magnesia) 400 mg/5 mL suspension 10 mL, 10 mL, oral, q24h PRN, Rose Claire MD magnesium sulfate 2 g in sterile water for injection 50 mL, 2 g, intravenous, Once, Rose Claire MD metoclopramide (Reglan) injection 10 mg, 10 mg, intravenous, q6h THOMAS, Rose Claire MD, 10 mg at 08/15/24 0533 NIFEdipine (Procardia) capsule 10 mg, 10 mg, oral, Once PRN, Rose Claire MD OLANZapine (ZyPREXA) tablet 2.5 mg, 2.5 mg, oral, BID, Rose Claire MD ondansetron (Zofran) injection 4 mg, 4 mg, intravenous, q6h, Rose Claire MD, 4 mg at 08/15/24 0643 pantoprazole (Protonix) injection 40 mg, 40 mg, intravenous, Daily, Rose Claire MD polyethylene glycol (Glycolax, Miralax) packet 17 g, 17 g, oral, BID PRN, Rose Claire MD potassium chloride 20 mEq in sterile water for injection 100 mL, 20 mEq, intravenous, q2h, Rose Claire MD, Last Rate: 50 mL/hr at 08/15/24 0703, 20 mEq at 08/15/24 0703 vitamin (iron-folic) tablet 1 tablet, 1 tablet, oral, Daily, Rose Claire MD prochlorperazine (Compazine) tablet 10 mg, 10 mg, oral, q6h PRN OR prochlorperazine (Compazine)injection 10 mg, 10 mg, intravenous, q6h PRN, 10 mg at 08/15/24 0346 OR prochlorperazine (Compazine) suppository 25 mg, 25 mg, rectal, q12h PRN, Rose Claire MD QUEtiapine (SEROquel) tablet 50 mg, 50 mg, oral, BID, Rose Claire MD scopolamine (Transderm-Scop) patch 1 patch, 1 patch, transdermal, q72h, Rose Claire MD, 1 patch at 08/15/24 0345 senna (Senokot) 8.8 mg/5 mL syrup 5 mL, 5 mL, oral, BID, Rose Claire MD simethicone (Mylicon) chewable tablet 80 mg, 80 mg, oral, 4x daily PRN, Rose Claire MD Current Outpatient Medications: OLANZapine (ZyPREXA) 2.5 mg tablet, Take 1 tablet (2.5 mg) by mouth 2 times a day., Disp: , Rfl: ondansetron ODT (Zofran-ODT) 8 mg disintegrating tablet, Dissolve 1 tablet (8 mg) in the mouth 4 times a day as needed., Disp: , Rfl: pantoprazole (ProtoNix) 20 mg EC tablet, Take 1 tablet (20 mg) by mouth once daily in the morning. Take before meals. Do not crush, chew, or split., Disp: , Rfl: pantoprazole (ProtoNix) 40 mg EC tablet, Take 1 tablet (40 mg) by mouth once daily in the morning. Take before meals. Do not crush, chew, or split., Disp: 30 tablet, Rfl: 0 no115/iron/folic acid ( 19 ORAL), Take 1 tablet by mouth once daily., Disp: , Rfl: QUEtiapine (SEROquel) 50 mg tablet, Take 1 tablet (50 mg) by mouth 2 times a day., Disp: , Rfl: Cosigned by David Cates MD at 08/17/2024 10:46 AM EDT Associated attestation - David Cates MD - 08/17/2024 10:46 AM EDT I saw and evaluated the patient. I personally obtained the ferris and critical portions of the historyand physical exam or was physically present for ferris and critical portions performed by the resident/fellow. I reviewed the resident/fellow's documentation and discussed the patient with the resident/esme randle. I agree with the resident/fellow's medical decision making as documented in the note. * Shanel Hollins MD - 08/15/2024 8:06 AM EDT 08/15/2024 Sue Colón [facility] CONSULT NOTE HPI: Sue Colón is a 28 y.o. at 14w1d here for consult for n/v in . Patient presented to the ED on 08/14 in the setting of worsening chest and epigastric pain. She has been having pain throughout the majority of her . This is an IVF . She states that pain makes her vomit and she is not having any nausea. She describes the pain as in her chest and sometimes at the epigastric area. It worsens when she takes a deep breath. She has not had anything to eat since Sunday. She reports showers used to help, though they are not as helpful anymore. She does smoke MJ and hasbeen daily throughout the to help manage her symptoms. Other complications include Problem List[1] 10 point review of system is negative except as above OB History 3 Para 1 Term 1 AB 1 Living 1 SAB 1 IAB Ectopic Multiple Live Births 1 Past medical history: Denies HTN, DM, asthma, depression, or thyroid issues Surgical History[2] Medications: Medications Ordered Prior to Encounter[3] RX Allergies[4] Social History[5] family history is not on file. OBJECTIVE Visit Vitals BP 134/80 Pulse 88 Temp 37 ??C (98.6 ??F) (Temporal) Resp 20 Ht 1.676 m (5' 6 ) Wt 52.6 kg (116 lb) SpO2 97% BMI 18.72 kg/m?? OB Status Smoking Status Never BSA 1.56 m?? Physical exam General - sitting in bed rocking back and forth in pain CV - regular rate Resp - tripod positioning while vomiting. No audible wheezes Abd - soft, no masses, tenderness to palpation in the RUQ and epigastric area. No rebound. No guarding. No tenderness in her lower abdominal area. Skin - no rashes FHT: obtain on admission US ASSESSMENT & PLAN Sue Colón is a 28 y.o. at 14w1d who was admitted on 08/15 in the setting of chest pain, epigastric pain, and vomiting. Chest/Epigastric Pain Vomiting, no nausea - persistent vomiting caused by persistent abdominal pain that is unrelieved by pain medications and with unknown etiology - Work up thus far: CXR, KUB, labs including troponin, lipase, UA, LFTs, BHB negative - GI consulted, appreciate recommendations. MFM team OK with EGD in to help determine etiology of pain - TWG in of 6lbs - Continue IVF - Continue antiemetics: zofran, reglan, benadryl, pantoprazole, scopolamine patch scheduled, compazine PRN - Pain: s/p dilaudid without improvement. Will trial one time dose of Toradol - Ddx: n/v of , cannabis induced hyperemesis, hiatal hernia, esophageal spasms, gastritis,pericarditis, pancreatitis - will obtain echo to rule out pericarditis IUP -PNLs reviewed wnl -US on admission with heart tones present Bipolar - home seroquel and olanzapine continued Assessment & Plan 14 weeks gestation of ([facility]) Patient was seen and evaluated with Dr. Jaime Hollins MD Maternal Medicine [1] Patient Active Problem List Diagnosis 14 weeks gestation of ([facility]) [2] Past Surgical History: Procedure Laterality Date LAPAROSCOPY DIAGNOSTIC / BIOPSY / ASPIRATION / LYSIS endometeriosis [3] No current facility-administered medications on file prior to encounter. Current Outpatient Medications on File Prior to Encounter Medication Sig Dispense Refill OLANZapine (ZyPREXA) 2.5 mg tablet Take 1 tablet (2.5 mg) by mouth 2 times a day. ondansetron ODT (Zofran-ODT) 8 mg disintegrating tablet Dissolve 1 tablet (8 mg) in the mouth 4 times a day as needed. pantoprazole (ProtoNix) 20 mg EC tablet Take 1 tablet (20 mg) by mouth once daily in the morning. Take before meals. Do not crush, chew, or split. pantoprazole (ProtoNix) 40 mg EC tablet Take 1 tablet (40 mg) by mouth once daily in the morning. Take before meals. Do not crush, chew, or split. 30 tablet 0 no115/iron/folic acid ( 19 ORAL) Take 1 tablet by mouth once daily. QUEtiapine (SEROquel) 50 mg tablet Take 1 tablet (50 mg) by mouth 2 times a day. [4] No Known Allergies [5] Social History Tobacco Use Smoking status: Never Smokeless tobacco: Never Substance Use Topics Drug use: Yes Types: Marijuana Cosigned by Chiquita Sandoval MD at 08/15/2024 9:31 AM EDT Associated attestation - Chiquita Sandoval MD - 08/15/2024 9:31 AM EDT I saw and evaluated the patient. I personally obtained the ferris and critical portions of the historyand physical exam or was physically present for ferris and critical portions performed by the resident/fellow. I reviewed the resident/fellow's documentation and discussed the patient with the resident/f jer. I agree with the resident/fellow's medical decision making as documented in the note with the exception/addition of the following: See attending addendum on admission H&P. Chiquita Sandoval MD Maternal Medicine Director of Intervention documented in this encounter Nursing Notes * Brittany Diez RN - 08/15/2024 7:31 PM EDT Patient wants to constantly be in the shower.Requesting her cream that I reordered from [facility]. documented in this encounter ED Notes * Dereje Sparrow PA-C - 08/14/2024 11:04 PM EDT HPI Chief Complaint Patient presents with ??? Vomiting HPI Sue Colón is a 28-year-old female G3, P1 currently 14 weeks with no significant medical history presented to the ED with chest pain and upper back pain since June. Patient states she has been seen by OB, her previous ED, and her family medicine provider for this pain. Patient states shewas told she has esophageal spasms however she has not had imaging done because she is high risk . Patient states the pain causes nausea and she has been vomiting since Sunday. Patient states she has been unable to tolerate oral intake without vomiting since Sunday. Patient denies falls and injuries to the back. Patient states she does have chest pain with breathing. Patient deniesabdominal pain, fevers, body aches, chills. Patient History Medical History[1] Surgical History[2] Family History[3] Social History[4] Physical Exam ED Triage Vitals [08/14/24 2208] Temperature Heart Rate Respirations BP 37.4 ??C (99.3 ??F) 85 16 127/64 Pulse Ox Temp Source Heart Rate Source Patient Position 96 % Temporal Monitor -- BP Location FiO2 (%) -- -- Physical Exam Vitals and nursing note reviewed. Constitutional: Appearance: Normal appearance. Cardiovascular: Rate and Rhythm: Normal rate and regular rhythm. Heart sounds: Normal heart sounds. No murmur heard. No gallop. Pulmonary: Effort: Pulmonary effort is normal. No respiratory distress. Breath sounds: Normal breath sounds. No stridor. No wheezing, rhonchi or rales. Chest: Chest wall: Tenderness present. Abdominal: General: Abdomen is flat. Bowel sounds are normal. There is no distension. Palpations: Abdomen is soft. There is no mass. Tenderness: There is no abdominal tenderness. There is no guarding or rebound. Hernia: No hernia is present. Musculoskeletal: Cervical back: No swelling, tenderness or bony tenderness. No pain with movement. Normal range of motion. Thoracic back: No swelling, tenderness or bony tenderness. Normal range of motion. Lumbar back: No swelling, tenderness or bony tenderness. Normal range of motion. Right lower leg: No edema. Left lower leg: No edema. Skin: General: Skin is warm and dry. Neurological: General: No focal deficit present. Mental Status: She is alert and oriented to person, place, and time. Psychiatric: Mood and Affect: Mood normal. Behavior: Behavior normal. ED Course & MDM Diagnoses as of 08/15/24 0257 15 weeks gestation of ([facility] Nausea and vomiting, unspecified vomiting type Chest pain, unspecified type No data recorded [place] Coma Scale Score: 15 (08/14/24 2213 : Wilian Loredo RN) Medical Decision Making This is a 28-year-old female presenting the ED with chest pain and upper back pain since June. Perchart review the patient was seen in the emergency department yesterday for evaluation of the same symptoms. Chest x-ray was obtained at that time which shows no acute cardiopulmonary pathology. Patient was given Dilaudid for pain relief and IV fluids. UA showed ketonuria with 3+ ketones. Patient was discharged home from the ED yesterday. Patient presents to the ED again today because her symptoms did not resolved. UA was repeated today for evaluation of ketonuria. test is positive today. Given patient had ketonuria yesterday beta-hydroxybutyrate obtained which is elevated at 0.43. L ipase obtained rule out pancreatitis and lipase within normal limits. EKG and troponin because of the patient's chest for ACS at this time. Troponin within normal limits. Given negative troponin and EKG low suspicion for ACS at this time. Heart score 0. VBG was obtained and shows respiratory alkalosis with pH 7.48, CO2 36, bicarb 26.8. Lactate within normal limits on VBG. Anion gap is 8. CBC andCMP also obtained today. CBC shows leukocytosis with WBC 12.9 and anemia with hemoglobin 10.9. Per chart review patient's hemoglobin is lower than baseline. Patient's leukocytosis is improved from labs obtained 2 days ago. CMP shows hypokalemia with potassium 3.3. Patient will be given potassium for repletion today. Given the patient is currently spoke with the MANAGER SECONDARY team for recommendations. MANAGER SECONDARY recommended obtaining a formal transvaginal ultrasound to determine gestational age given the patient has not had a formal ultrasound documented. Given the patient had ketonuria on UA yesterday and the patient has a documented history of eating disorder there is concern for starvation ketosis therefore the patient was given D5 LR. Per chart review patient was seen by primary care provider yesterday who stated the pain could be due to esophageal spasms. Patient's PCP recommended nifedipine for esophageal spasms. We wanted to give nifedipine in the ED today however patient cannot to lerate oral intake and we do not have IV nifedipine. Spoke with pharmacy for recommendations on a different medication and pharmacy recommended IV labetalol. Patient was also given Pepcid for esophageal spasms. Patient was given IV Zofran, Reglan, Benadryl for nausea and vomiting. Patient was given0.5 mg Dilaudid for pain relief. UA shows 2+ ketones and pyuria. hCG is 41,624. spoke with MANAGER SECONDARY and stated the patient is continuing to have intractable nausea and vomiting even after antiemetics and the patient will need to be admitted. MANAGER SECONDARY states the patient will need to be admitted to [facility] service. Spoke with GI given concern for esophageal spasm causing the patient's symptoms. GI recommended continuation of the IV labetalol. GI states the patient will be seen in the morning by the GI team and they will give recommendations after that. EKG was obtained for chest pain. EKG shows normal sinus rhythm with regular rate of 82 bpm, SD 118,QRS 70, QTc 422, normal axis deviation. No ST elevations noted. Disposition: Hospital admission Patient is admitted to [facility] under Dr. Sandoval. Patient agrees to hospital admission at this time Patient was discussed and staffed with Dr. Dobson Procedure Procedures [1] Past Medical History: Diagnosis Date ??? Anxiety ??? Bipolar 1 disorder (Multi) [2] Past Surgical History: Procedure Laterality Date ??? LAPAROSCOPY DIAGNOSTIC / BIOPSY / ASPIRATION / LYSIS endometeriosis [3] No family history on file. [4] Social History Tobacco Use ??? Smoking status: Never ??? Smokeless tobacco: Never Substance Use Topics ??? Alcohol use: Not on file ??? Drug use: Yes Types: Marijuana Dereje Sparrow PA-C 08/15/24 0257 Cosigned by Joan Dobson MD at 08/20/2024 12:29 PM EDT Associated attestation - Joan Dobson MD - 08/20/2024 12:29 PM EDT Emergency Medicine Attending Attestation: Diagnoses as of 08/20/24 1229 15 weeks gestation of ([facility]) Nausea and vomiting, unspecified vomiting type Chest pain, unspecified type This patient was seen by the advanced practice provider. I have personally performed a substantive portion of the encounter. I have seen and examined the patient; agree with the workup, evaluation, MDM, management and diagnosis. The care plan has been discussed. I personally saw the patient and made/approved the management plan and take responsibility for the patient management. I independently interpreted patient's EKG and agree with the above mentioned interpretation. Joan Dobson MD * Wilian Loredo RN - 08/14/2024 10:07 PM EDT Pt states that she has been having sever mid-sternal chest pain since and vomiting. Pt states that the chest pain has been going on since June and the vomiting started yesterday. Pt states that she has been seen multiple times but no one can figure out what's going on. Pt states that she is 14 weeks . documented in this encounter Miscellaneous Notes * Care Plan - Isabella Harris RN - 08/15/2024 9:46 PM EDT Problem: Antepartum Goal: Maintain as long as maternal and/or condition is stable Outcome: Progressing Goal: Avoid/minimize constipation Outcome: Progressing Goal: No decrease in circulation/VTE Outcome: Progressing Goal: FHR remains reassuring Outcome: Progressing Goal: Minimize anxiety/maximize coping Outcome: Progressing * Hospital Course - Leila Oneill MD - 08/15/2024 9:40 PM EDT 28 y.o. at 14w1d here for admitted for n/v in . She initially presented for worsening chest and epigastric pain. Antiemetics given Echo performed to rule out pericarditis and found to be wnl. GI consulted. Prior work up including US gallbladder at OSH in 06/2024, EGD and colonoscopy 10/2023without acute findings to explain patient's symptoms. they recommended abdominal ultrasound. Patient desired discharge prior to ultrasound being performed. GI outpatient referral placed. Recommend following up with PCP as well. Ok from OB standpoint to perform EGD if GI team deems appropriate. Overall, suspect cannabis induced hyperemesis vs n/v of . Patient found rectal tylenol, zofran, capsaicin cream most helpful and was Rxed. status remained reassuring during admission. * Care Plan - Brittany Diez RN - 08/15/2024 6:17 PM EDT The patient's goals for the shift include to have less pain The clinical goals for the shift include decrease n/v Over the shift, the patient did make progress toward the following goals. Barriers to progression include none. Recommendations to address these barriers include continue iv fluids and antiemetics.Per the patient she threw up after her po meds.Currently sleeping.Cepacol given for sore throat and bmx which she might have kept half of it down. * Significant Event - Danielle Hathaway MD - 08/15/2024 4:00 PM EDT Psychiatry was paged for medication management and anxiety. The patient is being admitted for nausea/vomiting. Concern is for cannabis hyperemesis syndrome. She is unable to tolerate her PO medications. She was on seroquel and olanzapine outpatient for bipolar disorder. Patient is to receive HaldolPRN for nausea. Formal consult to follow. Preliminary recommendations are: - can give zyprexa ODT or IM 2.5mg BID if patient cannot tolerate PO zyprexa - can hold seroquel if patient is unable to tolerate PO meds Cosigned by Klaudia Engel MD at 08/15/2024 6:09 PM EDT documented in this encounter Plan of Treatment Scheduled Referrals Name Type Priority Associated Diagnoses Order Schedule Referral to Gastroenterology Outpatient Referral Non-Urgent Nausea and vomiting, unspecified vomiting type Chest pain, unspecified type Expected: 08/15/2024 (Approximate), Expires: 08/15/2025 documented as of this encounter Procedures Procedure Name Priority Date/Time Associated Diagnosis Comments C. TRACHOMATIS / N. GONORRHOEAE, AMPLIFIED, UROGENITAL Routine 08/15/2024 12:28 PM EDT TRANSTHORACIC ECHO (TTE) COMPLETE Priority Discharge or Observation 08/15/2024 11:53 AM EDT Chest pain, unspecified type ECG 12-LEAD STAT 08/15/2024 10:42 AM EDT BETA HYDROXYBUTYRATE Routine 08/15/2024 5:22 AM EDT MAGNESIUM Routine 08/15/2024 5:22 AM EDT BASIC METABOLIC PANEL Routine 08/15/2024 5:22 AM EDT XR ABDOMEN 1 VIEW STAT 08/15/2024 4:5 9 AM EDT US OB LIMITED 1+ FETUSES STAT 08/15/2024 2:14 AM EDT POCT , URINE STAT 08/15/2024 12:43 AM EDT EXTRA URINE DORAN TUBE STAT 08/15/2024 12:39 AM EDT URINALYSIS WITH REFLEX MICROSCOPIC AND CULTURE STAT 08/15/2024 12:39 AM EDT URINALYSIS MICROSCOPIC WITH REFLEX CULTURE STAT 08/15/2024 12:39 AM EDT DRUG SCREEN,URINE Add-On 08/15/2024 12:39 AM EDT URINALYSIS WITH REFLEX MICROSCOPIC AND CULTURE STAT 08/15/2024 12:39 AM EDT HUMAN CHORIONIC GONADOTROPIN, SERUM QUANTITATIVE STAT 08/15/2024 12:25 AM EDT CBC WITH AUTO DIFFERENTIAL STAT 08/14/2024 11:23 PM EDT TROPONIN I, HIGH SENSITIVITY STAT 08/14/2024 11:23 PM EDT BETA HYDROXYBUTYRATE STAT 08/14/2024 11:23 PM EDT BLOOD GAS VENOUS FULL PANEL STAT 08/14/2024 11:23 PM EDT LIPASE STAT 08/14/2024 11:23 PM EDT COMPREHENSIVE METABOLIC PANEL STAT 08/14/2024 11:23 PM EDT ECG 12-LEAD STAT 08/14/2024 10:21 PM EDT documented in this encounter Results * C. trachomatis / N. gonorrhoeae, Amplified, Urogenital (08/15/2024 12:28 PM EDT) Neisseria gonorrhea,Ampl ified Negative Negative POLYMERASE CHAIN REACTION 08/15/2024 5:57 PM EDT [facility] Chlamydia trachomatis, Amplified Negative Negative POLYMERASE CHAIN REACTION 08/15/2024 5:57 PM EDT [facility] Urine Specimen from urethra / Unknown 08/15/2024 12:28 PM EDT 08/15/2024 1:11 PM EDT Narrative [facility] - 08/15/2024 5:57 PM EDT The APTIMA Combo 2 assay is FDA-approved NAAT using target capture for the in vitro qualitative detection and differentiation of ribosomal RNA (rRNA) for Chlamydia trachomatis and Neisseria gonorrhoeae testing on clinician-collected endocervical, PreservCyt solution liquid Pap specimens, vaginal, throat, rectal, and male urethral swab specimens; patient-collected vaginal swab specimens, and female and male urine specimens from symptomatic and asymptomatic individuals. Samples from all other sites are not validated for this method. us Lenka Mcgarry MD LAB MOLECULAR DIAGNOSTICS [facility]ANCO[facility] Final Result [facility] [address] [place], [place] [id number] * TRANSTHORACIC ECHO (TTE) COMPLETE (08/15/2024 11:53 AM EDT) AV pk kai 1.38 m/s SYNGO LVOT diam 1.96 cm SYNGO MV E/A ratio 2.36 SYNGO Tricuspid annular plane systolic excursion 2.7 cm SYNGO LV EF 63 % SYNGO RV free wall pk S' 14.00 cm/s SYNGO LVIDd 4.47 cm SYNGO Aortic Valve Area by Continuity of Peak Velocity 2.08 cm2 SYNGO AV pk grad 8 mmHg SYNGO LV A4C EF 63.9 SYNGO 08/15/2024 10:5 9 AM EDT Narrative SYNGO - 08/15/2024 12:27 PM EDT [facility], [address] [place] [address] and TRANSTHORACIC ECHOCARDIOGRAM REPORT Patient Name: SUE Dorsey Physician: [id number] Zuleyka Gibbons MD Study Date: 08/15/2024 Ordering Provider: [id number] LENKA MCGARRY MRN/PID: [id number] Fellow: Nurse: Date of /Age: 6 1995 / 28 Garage Supervisor: Isabella nelson RDCS, RVT Gender assigned at F Additional Staff: : Height: 167.64 cm Admit Date: Weight: 52.62 kg Admission Status: Inpatient - Priority discharge BSA / BMI: 1.59 m2 / 18.72 kg/m2 Blood Pressure: 127/64 mmHg Department Location: [facility] Non Invasive Study Type: TRANSTHORACIC ECHO (TTE) COMPLETE Diagnosis/ICD: Chest pain, unspecified-R07.9 Indication: Chest pain. CPT Code: Echo Complete w Full Doppler-[id number] Patient History: Pertinent History: 14 weeks . Study Detail: The following Echo studies were performed: 2D, M-Mode, Doppler and color flow. Technically challenging study due to body habitus. PHYSICIAN INTERPRETATION: Left Ventricle: Left ventricular ejection fraction is normal by visual estimate at 60-65%. There are no regional left ventricular wall motion abnormalities. The left ventricular cavity size is normal. There is normal septal and normal posterior left ventricular wall thickness. Spectral Doppler shows a normal pattern of left ventricular diastolic filling. Left Atrium: The left atrial size is normal. Right Ventricle: The right ventricle is normal in size. There is normal right ventricular global systolic function. Right Atrium: The right atrium is normal in size. Aortic Valve: The aortic valve is trileaflet. There is no evidence of aortic valve regurgitation. Mitral Valve: The mitral valve is normal in structure. There is no evidence of mitral valve regurgitation. The E Vmax is 1.23 m/s. Tricuspid Valve: The tricuspid valve is structurally normal. There is trace tricuspid regurgitation. The right ventricular systolic pressure could not be estimated. Pulmonic Valve: The pulmonic valve is structurally normal. There is physiologic pulmonic valve regurgitation. Pericardium: There is no pericardial effusion noted. Aorta: The aortic root is normal. The aortic arch is normal. Systemic Veins: The inferior vena cava appears normal in size, with IVC inspiratory collapse greater than 50%. Additional Comments: Normal echocardiogram. In comparison to the previous echocardiogram(s): There are no prior studies on this patient for comparison purposes. CONCLUSIONS: 1. Left ventricular ejection fraction is normal by visual estimate at 60-65%. 2. Normal echocardiogram. 3. There is normal right ventricular global systolic function. QUANTITATIVE DATA SUMMARY: 2D MEASUREMENTS: Normal Ranges: Ao Root d: 3.00 cm (2.0-3.7cm) IVSd: 0.86 cm (0.6-1.1cm) LVPWd: 0.66 cm (0.6-1.1cm) LVIDd: 4.47 cm (3.9-5.9cm) LVIDs: 2.48 cm LV Mass Index: 66 g/m2 LVEDV Index: 67 ml/m2 LV % FS 44.7 % LEFT ATRIUM: Normal Ranges: LA Vol A4C: 35.9 ml (22+/-6mL/m2) LA Vol Index A4C: 22.6ml/m2 LA Area A4C: 13.0 cm2 LA Major Heartwell A4C: 4.0 cm RIGHT ATRIUM: Normal Ranges: RA Area A4C: 10.0 cm2 LV SYSTOLIC FUNCTION: Normal Ranges: EF-A4C View: 64 % (>=55%) EF-A2C View: 61 % EF-Biplane: 63 % EF-Visual: 63 % LV EF Reported: 63 % LV DIASTOLIC FUNCTION: Normal Ranges: MV Peak E: 1.23 m/s (0.7-1.2 m/s) MV Peak A: 0.52 m/s (0.42-0.7 m/s) E/A Ratio: 2.36 (1.0-2.2) MV e' 0.135 m/s (>8.0) MV lateral e' 0.15 m/s MV medial e' 0.12 m/s MV A Dur: 76.12 msec E/e' Ratio: 9.08 (<8.0) PulmV Sys Kai: 71.25 cm/s PulmV Wilde Kai: 75.60 cm/s PulmV S/D Kai: 0.94 PulmV A Revs Kai: 24.84 cm/s PulmV A Revs Dur: 76.12 msec MITRAL VALVE: Normal Ranges: MV DT: 174 msec (150-240msec) AORTIC VALVE: Normal Ranges: AoV Vmax: 1.38 m/s (<=1.7m/s) AoV Peak P.6 mmHg (<20mmHg) LVOT Max Kai: 0.96 m/s (<=1.1m/s) LVOT VTI: 21.91 cm LVOT Diameter: 1.96 cm (1.8-2.4cm) AoV Area,Vmax: 2.08 cm2 (2.5-4.5cm2) RIGHT VENTRICLE: RV Basal 3.30 cm RV Mid 2.30 cm RV Major 6.7 cm TAPSE: 27.0 mm RV s' 0.14 m/s TRICUSPID VALVE/RVSP: Normal Ranges: Est. RA Pressure: 3 IVC Diam: 2.07 cm PULMONIC VALVE: Normal Ranges: PV Accel Time: 181 msec (>120ms) PV Max Kai: 1.1 m/s (0.6-0.9m/s) PV Max P.0 mmHg PULMONARY VEINS: PulmV A Revs Dur: 76.12 msec PulmV A Revs Kai: 24.84 cm/s PulmV Wilde Kai: 75.60 cm/s PulmV S/D Kai: 0.94 PulmV Sys Kai: 71.25 cm/s [id number] Zuleyka Gibbons MD Electronically signed on 08/15/2024 at 12:27:54 PM Final Procedure Note Zuleyka Gibbons MD - 08/15/2024 [facility], [address] [place] [address] and TRANSTHORACIC ECHOCARDIOGRAM REPORT Patient Name: SUE FARRARSTEPHANI Dorsey Physician: [id number] Gibbons MD Study Date: 08/15/2024 Ordering Provider: [id number] MCGARRY MRN/PID: [id number] Fellow: Nurse: Date of /Age: 6 1995 Garage Supervisor: Kwasi nelson RDCS, RVT Gender assigned at F Additional Staff: : Height: 167.64 cm Admit Date: Weight: 52.62 kg Admission Status: Inpatient- Priority discharge BSA / BMI: 1.59 m2 / 18.72 kg/m2 Blood Pressure: 127/64 mmHg Department Location: [facility] NonInvasive Study Type: TRANSTHORACIC ECHO (TTE) COMPLETE Diagnosis/ICD: Chest pain, unspecified-R07.9 Indication: Chest pain. CPT Code: Echo Complete w Full Doppler-[id number] Patient History: Pertinent History: 14 weeks . Study Detail: The following Echo studies were performed: 2D, M-Mode,Doppler and color flow. Technically challenging study due to bodyhabitus. PHYSICIAN INTERPRETATION: Left Ventricle: Left ventricular ejection fraction is normal by visualestimate at 60-65%. There are no regional left ventricular wall motionabnormalities. The left ventricular cavity size is normal. There is normalseptal and normal posterior left ventricular wall thickness. SpectralDoppler shows a normal pattern of left ventricular diastolic filling. Left Atrium: The left atrial size is normal. Right Ventricle: The right ventricle is normal in size. There is normalright ventricular global systolic function. Right Atrium: The right atrium is normal in size. Aortic Valve: The aortic valve is trileaflet. There is no evidence ofaortic valve regurgitation. Mitral Valve: The mitral valve is normal in structure. There is noevidence of mitral valve regurgitation. The E Vmax is 1.23 m/s. Tricuspid Valve: The tricuspid valve is structurally normal. There istrace tricuspid regurgitation. The right ventricular systolic pressurecould not be estimated. Pulmonic Valve: The pulmonic valve is structurally normal. There isphysiologic pulmonic valve regurgitation. Pericardium: There is no pericardial effusion noted. Aorta: The aortic root is normal. The aortic arch is normal. Systemic Veins: The inferior vena cava appears normal in size, with IVCinspiratory collapse greater than 50%. Additional Comments: Normal echocardiogram. In comparison to the previous echocardiogram(s): There are no priorstudies on this patient for comparison purposes. CONCLUSIONS: 1. Left ventricular ejection fraction is normal by visual estimate at60-65%. 2. Normal echocardiogram. 3. There is normal right ventricular global systolic function. QUANTITATIVE DATA SUMMARY: 2D MEASUREMENTS: Normal Ranges: Ao Root d: 3.00 cm (2.0-3.7cm) IVSd: 0.86 cm (0.6-1.1cm) LVPWd: 0.66 cm (0.6-1.1cm) LVIDd: 4.47 cm (3.9-5.9cm) LVIDs: 2.48 cm LV Mass Index: 66 g/m2 LVEDV Index: 67 ml/m2 LV % FS 44.7 % LEFT ATRIUM: Normal Ranges: LA Vol A4C: 35.9 ml (22+/-6mL/m2) LA Vol Index A4C: 22.6ml/m2 LA Area A4C: 13.0 cm2 LA Major Heartwell A4C: 4.0 cm RIGHT ATRIUM: Normal Ranges: RA Area A4C: 10.0 cm2 LV SYSTOLIC FUNCTION: Normal Ranges: EF-A4C View: 64 % (>=55%) EF-A2C View: 61 % EF-Biplane: 63 % EF-Visual: 63 % LV EF Reported: 63 % LV DIASTOLIC FUNCTION: Normal Ranges: MV Peak E: 1.23 m/s (0.7-1.2 m/s) MV Peak A: 0.52 m/s (0.42-0.7 m/s) E/A Ratio: 2.36 (1.0-2.2) MV e' 0.135 m/s (>8.0) MV lateral e' 0.15 m/s MV medial e' 0.12 m/s MV A Dur: 76.12 msec E/e' Ratio: 9.08 (<8.0) PulmV Sys Kai: 71.25 cm/s PulmV Wilde Kai: 75.60 cm/s PulmV S/D Kai: 0.94 PulmV A Revs Kai: 24.84 cm/s PulmV A Revs Dur: 76.12 msec MITRAL VALVE: Normal Ranges: MV DT: 174 msec (150-240msec) AORTIC VALVE: Normal Ranges: AoV Vmax: 1.38 m/s (<=1.7m/s) AoV Peak P.6 mmHg (<20mmHg) LVOT Max Kai: 0.96 m/s (<=1.1m/s) LVOT VTI: 21.91 cm LVOT Diameter: 1.96 cm (1.8-2.4cm) AoV Area,Vmax: 2.08 cm2 (2.5-4.5cm2) RIGHT VENTRICLE: RV Basal 3.30 cm RV Mid 2.30 cm RV Major 6.7 cm TAPSE: 27.0 mm RV s' 0.14 m/s TRICUSPID VALVE/RVSP: Normal Ranges: Est. RA Pressure: 3 IVC Diam: 2.07 cm PULMONIC VALVE: Normal Ranges: PV Accel Time: 181 msec (>120ms) PV Max Kai: 1.1 m/s (0.6-0.9m/s) PV Max P.0 mmHg PULMONARY VEINS: PulmV A Revs Dur: 76.12 msec PulmV A Revs Kai: 24.84 cm/s PulmV Wilde Kai: 75.60 cm/s PulmV S/D Kai: 0.94 PulmV Sys Kai: 71.25 cm/s [id number] Zuleyka Gibbons MD Electronically signed on 08/15/2024 at 12:27:54 PM Final us Lenka Mcgarry MD CV ECHO PROCEDURES Final Resul t SYNGO * ECG 12 lead (08/15/2024 10:42 AM EDT) Ventricular Rate 70 BPM MUSE Atrial Rate 70 BPM MUSE SD Interval 126 ms MUSE QRS Duration 72 ms MUSE QT Interval 386 ms MUSE QTC Calculation(Baze tt) 416 ms MUSE P Heartwell 77 degrees MUSE R Heartwell 88 degrees MUSE T Heartwell 62 degrees MUSE QRS Count 12 beats MUSE Q Onset 220 ms MUSE P Onset 157 ms MUSE P Offset 201 ms MUSE T Offset 413 ms MUSE QTC Fredericia 406 ms MUSE 08/15/2024 10:4 1 AM EDT 08/17/2024 6:01 AM EDT Narrative MUSE - 08/17/2024 6:01 AM EDT Normal sinus rhythm Normal ECG When compared with ECG of 14-AUG-2024 22:14, No significant change was found See ED provider note for full interpretation and clinical correlation Confirmed by Baylee Pizano ([id number]) on 08/17/2024 6:01:46 AM Procedure Note Baylee Pizano APRN-CNP - 08/17/2024 Normal sinus rhythm Normal ECG When compared with ECG of 14-AUG-2024 22:14, No significant change was found See ED provider note for full interpretation and clinical correlation Confirmed by Baylee Pizano ([id number]) on 08/17/2024 6:01:46 AM us Marek Nelson DO ECG ORDERABLES Final Result Performing Organization Address City/[facility]/ZIP Co de Phone Number MUSE * Beta Hydroxybutyrate (08/15/2024 5:22 AM EDT) Pathologist [facility] Beta-Hydroxybu tyrate 0.11 0.02 - 0.27 mmol/L LAB CHEMISTRY METHOD 08/15/2024 6:32 AM EDT [facility] Blood Venous blood specimen / Unknown Venipuncture / Unknown 08/15/2024 5:22 AM EDT 08/15/2024 5:54 AM EDT Narrative [facility] - 08/15/2024 6:32 AM EDT The beta-hydroxybutyrate test performance characteristics have been validated by [facility]. This test has not been approved by the FDA; however such approval is not necessary. eLnka Mcgarry MD LAB BLOOD ORDERABLES Final Res ult Performing Organization Address [facility] Co de Phone Number [facility] [address] [place] [address] * (ABNORMAL) Basic metabolic panel (08/15/2024 5:22 AM EDT) Pathologist [facility] Glucose 137(H) 74 - 99 mg/dL LAB CHEMISTRY METHOD 08/15/2024 6:32 AM EDT [facility] Sodium 133(L) 136 - 145 mmol/L LAB CHEMISTRY METHOD 08/15/2024 6:32 AM EDT [facility] Potassium 3.6 3.5 - 5.3 mmol/L LAB CHEMISTRY METHOD 08/15/2024 6:32 AM EDT [facility] Chloride 101 98 - 107 mmol/L LAB CHEMISTRY METHOD 08/15/2024 6:32 AM EDT [facility] Bicarbonate 23 21 - 32 mmol/L LAB CHEMISTRY METHOD 08/15/2024 6:32 AM EDT [facility] Anion Gap 13 10 - 20 mmol/L LAB CHEMISTRY METHOD 08/15/2024 6:32 AM EDT [facility] Urea Nitrogen 12 6 - 23 mg/dL LAB CHEMISTRY METHOD 08/15/2024 6:32 AM EDT [facility] Creatinine 0.54 0.50 - 1.05 mg/dL LAB CHEMISTRY METHOD 08/15/2024 6:32 AM EDT [facility] eGFR >90 >60 mL/min/1. 73m*2 LAB CHEMISTRY METHOD 08/15/2024 6:32 AM EDT [facility] Comment: Calculations of estimated GFR are performed using the 2020 CKD-EPI Study Refit equation without the race variable for the IDMS-Traceable creatinine methods. https://jasn.asnjournals.org/content/early//ASN.2268990194 Calcium 8.8 8.6 - 10.6 mg/dL LAB CHEMISTRY METHOD 08/15/2024 6:32 AM EDT [facility] Blood Venous blood specimen / Unknown Venipuncture / Unknown 08/15/2024 5:22 AM EDT 08/15/2024 5:54 AM EDT Lenka Mcgarry MD LAB BLOOD ORDERABLES Final Res ult Performing Organization Address City/[facility]/ZIP Co de Phone Number [facility] [id number] [place] [id number] * Magnesium (08/15/2024 5:22 AM EDT) [facility] Signature Magnesium 1.83 1.60 - 2.40 mg/dL LAB CHEMISTRY METHOD 08/15/2024 6:32 AM EDT [facility] Blood Venous blood specimen / Unknown Venipuncture / Unknown 08/15/2024 5:22 AM EDT 08/15/2024 5:54 AM EDT Lenka Mcgarry MD LAB BLOOD ORDERABLES Final Res ult Performing Organization Address City/[facility]/ZIP Co de Phone Number [facility] [address] [place] [phone] * XR abdomen 1 view (08/15/2024 4:59 AM EDT) Anatomical Region Laterality Modality Thoracic, Abdomen Computed Radio graphy 08/15/2024 5:05 AM EDT 08/15/2024 6:42 AM EDT Impressions 08/15/2024 6:40 AM EDT Nonobstructive bowel gas pattern. I personally reviewed the images/study and I agree with the findings as stated by Dr. Cesar Jordan. MACRO: none Signed by: Dennis Bobby 08/15/2024 6:40 AM Dictation workstation: [id number] Narrative 08/15/2024 6:40 AM EDT Interpreted By: Dennis Bobby and Ohs Zachary STUDY: XR ABDOMEN 1 VIEW; 08/15/2024 4:59 am INDICATION: Signs/Symptoms:abdominal pain. COMPARISON: None. ACCESSION NUMBER(S): [id number] ORDERING CLINICIAN: LENKA MCGARRY FINDINGS: There is a nonobstructive bowel gas pattern. No extraluminal or portal venous gas. Visualized soft tissues and osseous structures are unremarkable. The lung bases are clear. Procedure Note Dennis Bobby MD - 08/15/2024 Interpreted By: Dennis Bobby and Ohs Zachary STUDY: XR ABDOMEN 1 VIEW; 08/15/2024 4:59 am INDICATION: Signs/Symptoms:abdominal pain. COMPARISON: None. ACCESSION NUMBER(S): [id number] ORDERING CLINICIAN: LENKA MCGARRY FINDINGS: There is a nonobstructive bowel gas pattern. No extraluminal or portal venous gas. Visualized soft tissues and osseous structures are unremarkable. The lung bases are clear. IMPRESSION: Nonobstructive bowel gas pattern. I personally reviewed the images/study and I agree with the findings as stated by Dr. Cesar Jordan. MACRO: none Signed by: Dennis Bobby 08/15/2024 6:40 AM Dictation workstation: [id number] us Lenka Mcgarry MD IMG XR PROCEDURES Final Result * US OB limited 1+ fetuses (08/15/2024 2:14 AM EDT) Anatomical Region Laterality Modality Body Ultrasound Study GA Study Date Study RENO Working RENO (Source) 08/15/2024 08/15/2024 2:30 AM EDT 08/15/2024 2:59 AM EDT Impressions 08/15/2024 2:58 AM EDT 1. Single live intrauterine gestation corresponding to 15 weeks and 1 day by femur length. Cervical length measures 3.6 cm. There does to be increased vascularity between the placenta in the uterus. This can be indicative of abnormal placental implantation and further evaluation is advised. 2. Evaluation of anatomy was not performed. Recommend continued routine follow-up imaging evaluation. I personally reviewed the images/study and I agree with the findings as stated by Resident Harvey Mcgarry MD. MACRO: None Signed by: Leon Null 08/15/2024 2:58 AM Dictation workstation: [id number] Narrative 08/15/2024 2:58 AM EDT Interpreted By: Leon Null and Dervishi Mario STUDY: US OB LIMITED 1+ FETUSES; 08/15/2024 2:14 am INDICATION: Signs/Symptoms:abdominal and chest pain during . COMPARISON: None. ACCESSION NUMBER(S): [id number] ORDERING CLINICIAN: DEREJE SPARROW TECHNIQUE: Multiple images were obtained. Transabdominal ultrasound was performed. FINDINGS: There is a single live intrauterine gestation present. FL 1.8 cm, 15w1d The heart rate is 158 bpm. The position is breech. Evaluation of anatomy was not performed. The placenta location is anterior. The amniotic fluid index is within normal limits. The cervix is closed and measures at least 3.6 cm in length. There does appear to be increased vascular flow between the placenta and uterine wall. Maternal anatomy: Right Adnexa: The right ovary measures 2.43 cm x 1.79 cm x 2.46 cm and demonstrates normal flow. No adnexal mass is identified. Left Adnexa: The left ovary measures 2.12 cm x 1.02 cm x 2.64 cm and demonstrates normal flow. No adnexal mass is identified. No abnormal fluid collections are noted. Procedure Note Leon Null MD - 08/15/2024 Interpreted By: Leon Null and Dervishi Mario STUDY: US OB LIMITED 1+ FETUSES; 08/15/2024 2:14 am INDICATION: Signs/Symptoms:abdominal and chest pain during . COMPARISON: None. ACCESSION NUMBER(S): [id number] ORDERING CLINICIAN: DEREJE SPARROW TECHNIQUE: Multiple images were obtained. Transabdominal ultrasound was performed. FINDINGS: There is a single live intrauterine gestation present. FL 1.8 cm, 15w1d The heart rate is 158 bpm. The position is breech. Evaluation of anatomy was not performed. The placenta location is anterior. The amniotic fluid index is within normal limits. The cervix is closed and measures at least 3.6 cm in length. There does appear to be increased vascular flow between the placenta and uterine wall. Maternal anatomy: Right Adnexa: The right ovary measures 2.43 cm x 1.79 cm x 2.46 cm and demonstrates normal flow. No adnexal mass is identified. Left Adnexa: The left ovary measures 2.12 cm x 1.02 cm x 2.64 cm and demonstrates normal flow. No adnexal mass is identified. No abnormal fluid collections are noted. IMPRESSION: 1. Single live intrauterine gestation corresponding to 15 weeks and 1 day by femur length. Cervical length measures 3.6 cm. There does to be increased vascularity between the placenta in the uterus. This can be indicative of abnormal placental implantation and further evaluation is advised. 2. Evaluation of anatomy was not performed. Recommend continued routine follow-up imaging evaluation. I personally reviewed the images/study and I agree with the findings as stated by Resident Harvey Mcgarry MD. MACRO: None Signed by: Leon Null 08/15/2024 2:58 AM Dictation workstation: [id number] Dereje Sparrow PA-C IMG OB US PROCEDURES Fin al Result * (ABNORMAL) POCT , urine (08/15/2024 12:43 AM EDT) Preg Test, Ur Positive(A ) Urine 08/15/2024 12:4 3 AM EDT Dereje Sparrow PA-C POINT OF CARE TEST ENTER /EDIT ORDERABLES Final Result * (ABNORMAL) Drug Screen, Urine (08/15/2024 12:39 AM EDT) [facility] Amphetamine Screen, Urine Presumptive Negative Presumptive Negative LAB CHEMISTRY METHOD 4:40 AM [facility] Comment: CUTOFF LEVEL: 500 NG/ML Cross-reactivity has been reported with high concentrations of the following drugs: buproprion, chloroquine, chlorpromazine, ephedrine, mephentermine, fenfluramine, phentermine, phenylpropanolamine, pseudoephedrine, and propranolol. Barbiturate Screen, Urine Presumptive Negative Presumptive Negative LAB CHEMISTRY METHOD 4:40 AM [facility] Comment:CUTOFF LEVEL: 200 NG /ML Benzodiazepines Screen, Urine Presumptive Negative Presumptive Negative LAB CHEMISTRY METHOD 4:40 AM [facility] Comment:CUTOFF LEVEL: 200 NG /ML Cannabinoid Screen, Urine Presumptive Positive(A) Presumptive Negative LAB CHEMISTRY METHOD 4:40 AM [facility] Comment:CUTOFF LEVEL: 50 NG/ ML Cocaine Metabolite Screen, Urine Presumptive Negative Presumptive Negative LAB CHEMISTRY METHOD 4:40 AM [facility] Comment:CUTOFF LEVEL: 150 NG /ML Fentanyl Screen, Urine Presumptive Negative Presumptive Negative LAB CHEMISTRY METHOD 4:40 AM [facility] Comment:CUTOFF LEVEL: 5 NG/M L Opiate Screen, Urine Presumptive Positive(A) Presumptive Negative LAB CHEMISTRY METHOD 4:40 AM [facility] Comment: CUTOFF LEVEL: 300 NG/ML The opiate screen does not detect fentanyl, meperidine, or tramadol. Oxycodone is not consistently detected (refer to Oxycodone Screen, Urine result). Oxycodone Screen, Urine Presumptive Negative Presumptive Negative LAB CHEMISTRY METHOD 4:40 AM [facility] Comment: CUTOFF LEVEL: 100 NG/ML This test will accurately detect both oxycodone and oxymorphone. PCP Screen, Urine Presumptive Negative Presumptive Negative LAB CHEMISTRY METHOD 4:40 AM [facility] Comment: CUTOFF LEVEL: 25 NG/ML Cross-reactivity has been reported with dextromethorphan. Methadone Screen, Urine Presumptive Negative Presumptive Negative LAB CHEMISTRY METHOD 4:40 AM EDT [facility] Comment: CUTOFF LEVEL: 150 NG/ML The metabolite U-myxhk-asenbivnyglhaw (LAAM) is not detected by this method in concentrations that would be found in the urine of patients on LAAM therapy. Urine Urine specimen / Unknown 08/15/2024 12:39 AM EDT 08/15/2024 12:56 AM EDT Narrative [facility] - 08/15/2024 4:40 AM EDT Drug screen results are presumptive and should not be used to assess compliance with prescribed medication. Contact the performing [facility] laboratory to add-on definitive confirmatory testing if [...] be directed to the laboratory medical directors. us Lenka Mcgarry MD LAB URINE ORDERABLES Final Res ult [facility] [id number] [place], [place] [id number] * (ABNORMAL) Urinalysis Microscopic (08/15/2024 12:39 AM EDT) WBC, Urine 6-10(A) 1-5, NONE /HPF 08/15/2024 1:49 AM EDT [facility] RBC, Urine 3-5 NONE, 1-2, 3-5 /HPF 08/15/2024 1:49 AM EDT [facility] Squamous Epithelial Cells, Urine 1-9 (SPARSE) Reference range not established. /HPF 08/15/2024 1:49 AM EDT [facility] Mucus, Urine 3+ Reference range not established. /LPF 08/15/2024 1:49 AM EDT [facility] Urine Urine specimen / Unknown 08/15/2024 12:39 AM EDT 08/15/2024 12:56 AM EDT Dereje N [employer] PA-C LAB URINE ORDERABLES Fin al Result Performing Organization Address [facility] de Phone Number [facility] [address] [place] [phone] * Extra Urine Doran Tube (08/15/2024 12:39 AM EDT) Extra Tube Hold for add-ons. 08/15/2024 11:01 AM EDT [facility] Comment:Auto resulted. Urine Urine specimen / Unknown 08/15/2024 12:39 AM EDT 08/15/2024 12:56 AM EDT Edreje N Bisi PA-C LAB URINE ORDERABLES Fin al Result Performing Organization Address [facility] de Phone Number [facility] [address] [place] [phone] * (ABNORMAL) Urinalysis with Reflex Culture and Microscopic (08/15/2024 12:39 AM EDT) Color, Urine Yellow Light-Yellow , Yellow, Dark-Yellow 08/15/2024 1:49 AM EDT [facility] Appearance, Urine Clear Clear 08/15/2024 1:49 AM EDT [facility] Specific [place], Urine 1.023 1.005 - 1.035 08/15/2024 1:49 AM EDT [facility] pH, Urine 6.0 5.0, 5.5, 6.0, 6.5, 7.0, 7.5, 8.0 08/15/2024 1:49 AM EDT [facility] Protein, Urine 20 (TRACE) NEGATIVE, 10 (TRACE), 20 (TRACE) mg/dL 08/15/2024 1:49 AM EDT [facility] Glucose, Urine Normal Normal mg/dL 08/15/2024 1:49 AM EDT [facility] Blood, Urine NEGATIVE NEGATIVE mg/dL 08/15/2024 1:49 AM EDT [facility] Ketones, Urine 40 (2+)(A) NEGATIVE mg/dL 08/15/2024 1:49 AM EDT [facility] Bilirubin, Urine NEGATIVE NEGATIVE mg/dL 08/15/2024 1:49 AM EDT [facility] Urobilinogen, Urine Normal Normal mg/dL 08/15/2024 1:49 AM EDT [facility] Nitrite, Urine NEGATIVE NEGATIVE 08/15/2024 1:49 AM EDT [facility] Leukocyte Esterase, Urine NEGATIVE NEGATIVE 08/15/2024 1:49 AM EDT [facility] Urine Urine specimen / Unknown 08/15/2024 12:39 AM EDT 08/15/2024 12:56 AM EDT us Dereje Sparrow PA-C LAB URINE ORDERABLES Fin al Result [facility] [address] [place], [place] [id number] * (ABNORMAL) Human Chorionic Gonadotropin, Serum Quantitative (08/15/2024 12:25 AM EDT) [facility] Signature HCG, Beta-Quantitati ve 41,624(H) <5 mIU/mL LAB IMMUNOASSAY METHOD 08/15/2024 1:38 AM EDT [facility] Comment:Low-level positive H CG results can be seen in early , in lilliam- or post-menopausal females due to normal pituitary HCG production, or with analytic interference. Repeat testing in 48-72 hours can aid in assessing for as results should double in this time period. FSH measurement is recommended in lilliam- or post-menopausal females as concurrent elevation of FSH can support pituitary production as the source of the HCG elevation. Blood Venous blood specimen / Unknown Venipuncture / Unknown 08/15/2024 12:25 AM EDT 08/15/2024 12:49 AM EDT Narrative [facility] - 08/15/2024 1:38 AM EDT Total HCG measurement is performed using the [employer]-Squared immunoassay which detects intact HCG and free beta HCG subunit. This test is not indicated for use as a tumor marker. HCG testing is performed using a different test methodology at [facility] than other [facility]. Direct result comparison should only be made within the same method. Dereje GOMEZ-C LAB BLOOD ORDERABLES Fin al Result Performing Organization Address [facility] de Phone Number [facility] [address] [place] [phone] * (ABNORMAL) Beta Hydroxybutyrate (08/14/2024 11:23 PM EDT) [facility] Beta-Hydroxybu tyrate 0.43(H) 0.02 - 0.27 mmol/L LAB CHEMISTRY METHOD 08/15/2024 12:36 AM EDT [facility] Blood Venous blood specimen / Unknown Venipuncture / Unknown 08/14/2024 11:23 PM EDT 08/15/2024 12:09 AM EDT [facility] - 08/15/2024 12:36 AM EDT The beta-hydroxybutyrate test performance characteristics have been validated by [facility]. This test has not been approved by the FDA; however such approval is not necessary. Dereje GOMEZ-C LAB BLOOD ORDERABLES Fin al Result Performing Organization Address [facility] de Phone Number [facility] [address] [place] [phone] * (ABNORMAL) Blood Gas Venous Full Panel (08/14/2024 11:23 PM EDT) [facility] POCT pH, Venous 7.48(H) 7.33 - 7.43 pH 08/14/2024 11:24 PM EDT [facility] POCT pCO2, Venous 36(L) 41 - 51 mm Hg 08/14/2024 11:24 PM EDT [facility] POCT pO2, Venous 86(H) 35 - 45 mm Hg 08/14/2024 11:24 PM EDT [facility] POCT SO2, Venous 98(H) 45 - 75 % 08/15/19 25 11:24 PM EDT [facility] POCT Oxy Hemoglobin, Venous 94.8(H) 45.0 - 75.0 % 08/14/2024 11:24 PM EDT [facility] POCT Hematocrit Calculated, Venous 35.0(L) 36.0 - 46.0 % 08/14/2024 11:24 PM EDT [facility] POCT Sodium, Venous 134(L) 136 - 145 mmol/L 08/14/2024 11:24 PM EDT [facility] POCT Potassium, Venous 3.4(L) 3.5 - 5.3 mmol/L 08/14/2024 11:24 PM EDT [facility] POCT Chloride, Venous 103 98 - 107 mmol/L 08/14/2024 11:24 PM EDT [facility] POCT Ionized Calicum, Venous 1.22 1.10 - 1.33 mmol/L 08/14/2024 11:24 PM EDT [facility] POCT Glucose, Venous 108(H) 74 - 99 mg/dL 08/14/2024 11:24 PM EDT [facility] POCT Lactate, Venous 0.7 0.4 - 2.0 mmol/L 08/14/2024 11:24 PM EDT [facility] POCT Base Excess, Venous 3.3(H) -2.0 - 3.0 mmol/L 08/14/2024 11:24 PM EDT [facility] POCT HCO3 Calculated, Venous 26.8(H) 22.0 - 26.0 mmol/L 08/14/2024 11:24 PM EDT [facility] POCT Hemoglobin, Venous 11.5(L) 12.0 - 16.0 g/dL 08/14/2024 11:24 PM EDT [facility] POCT Anion Gap, Venous 8.0(L) 10.0 - 25.0 mmol/L 08/14/2024 11:24 PM EDT [facility] Patient Temperature 37.0 degrees Celsius 08/14/2024 11:24 PM EDT [facility] FiO2 21 % 08/14/2024 11:24 PM EDT [facility] Blood Venous blood specimen / Unknown Venipuncture / Unknown 08/14/2024 11:23 PM EDT 08/14/2024 11:23 PM EDT Dereje Sparrow PA-C LAB BLOOD ORDERABLES Fin al Result Performing Organization Address [facility] Co de Phone Number [facility] [address] [place] [phone] * Troponin I, High Sensitivity (08/14/2024 11:23 PM EDT) Troponin I, High Sensitivity (CMC) <3 0 - 34 ng/L LAB IMMUNOASSAY METHOD 08/15/2024 12:36 AM EDT [facility] Blood Venous blood specimen / Unknown Venipuncture / Unknown 08/14/2024 11:23 PM EDT 08/15/2024 12:09 AM EDT Narrative [facility] - 08/15/2024 12:36 AM EDT Less than 99th percentile of normal range cutoff- Female and children under 18 years old <35 ng/L; Male <54 ng/L: Negative Repeat testing should be performed if clinically indicated. Female and children under 18 years old 35-120 ng/L; Male 54-120 ng/L: Consistent with possible cardiac damage and possible increased clinical risk. Serial measurements may help to assess extent of myocardial damage. >120 ng/L: Consistent with cardiac damage, increased clinical risk and myocardial infarction. Serial measurements may help assess extent of myocardial damage. NOTE: Children less than 1 year old may have higher baseline troponin levels and results should be interpreted in conjunction with the overall clinical context. NOTE: Troponin I testing is performed using a different testing methodology at [facility] than at other [facility]. Direct result comparisons should only be made within the same method. us Dereje Sparrow PA-C LAB BLOOD ORDERABLES Fin al Result Performing Organization Address [facility] Co de Phone Number [facility] [address] [place] [phone] * Lipase (08/14/2024 11:23 PM EDT) Lipase 16 9 - 82 U/L LAB CHEMISTRY METHOD 08/15/2024 12:36 AM EDT [facility] Blood Venous blood specimen / Unknown Venipuncture / Unknown 08/14/2024 11:23 PM EDT 08/15/2024 12:09 AM EDT Narrative [facility] - 08/15/2024 12:36 AM EDT Venipuncture immediately after or during the administration of Metamizole may lead to falsely low results. Testing should be performed immediately prior to Metamizole dosing. us Dereje Sparrow PA-C LAB BLOOD ORDERABLES Fin al Result [facility] [id number] [facility] [id number] [place], [place] [phone] * (ABNORMAL) Comprehensive metabolic panel (08/14/2024 11:23 PM EDT) Glucose 107(H) 74 - 99 mg/dL LAB CHEMISTRY METHOD 08/15/2024 12:36 AM EDT [facility] Sodium 136 136 - 145 mmol/L LAB CHEMISTRY METHOD 08/15/2024 12:36 AM EDT [facility] Potassium 3.3(L) 3.5 - 5.3 mmol/L LAB CHEMISTRY METHOD 08/15/2024 12:36 AM EDT [facility] Chloride 103 98 - 107 mmol/L LAB CHEMISTRY METHOD 08/15/2024 12:36 AM EDT [facility] Bicarbonate 25 21 - 32 mmol/L LAB CHEMISTRY METHOD 08/15/2024 12:36 AM EDT [facility] Anion Gap 11 10 - 20 mmol/L LAB CHEMISTRY METHOD 08/15/2024 12:36 AM EDT [facility] Urea Nitrogen 10 6 - 23 mg/dL LAB CHEMISTRY METHOD 08/15/2024 12:36 AM EDT [facility] Creatinine 0.46(L) 0.50 - 1.05 mg/dL LAB CHEMISTRY METHOD 08/15/2024 12:36 AM EDT [facility] eGFR >90 >60 mL/min/1. 73m*2 LAB CHEMISTRY METHOD 08/15/2024 12:36 AM EDT [facility] Comment: Calculations of estimated GFR are performed using the 2021 CKD-EPI Study Refit equation without the race variable for the IDMS-Traceable creatinine methods. https://jasn.asnjournals.org/content//ASN.1132652567 Calcium 9.0 8.6 - 10.6 mg/dL LAB CHEMISTRY METHOD 08/15/2024 12:36 AM EDT [facility] Albumin 3.6 3.4 - 5.0 g/dL LAB CHEMISTRY METHOD 08/15/2024 12:36 AM EDT [facility] Alkaline Phosphatase 35 33 - 110 U/L LAB CHEMISTRY METHOD 08/15/2024 12:36 AM EDT [facility] Total Protein 5.8(L) 6.4 - 8.2 g/dL LAB CHEMISTRY METHOD 08/15/2024 12:36 AM EDT [facility] AST 11 9 - 39 U/L LAB CHEMISTRY METHOD 08/15/2024 12:36 AM EDT [facility] Bilirubin, Total 0.4 0.0 - 1.2 mg/dL LAB CHEMISTRY METHOD 08/15/2024 12:36 AM EDT [facility] ALT 14 7 - 45 U/L LAB CHEMISTRY METHOD 08/15/2024 12:36 AM EDT [facility] Comment:Patients treated wit h Sulfasalazine may generate falsely decreased results for ALT. Blood Venous blood specimen / Unknown Venipuncture / Unknown 08/14/2024 11:23 PM EDT 08/15/2024 12:09 AM EDT us Dereje Sparrow PA-C LAB BLOOD ORDERABLES Fin al Result [facility] [address] [facility] [id number] [place], [place] [phone] * (ABNORMAL) CBC and Auto Differential (08/14/2024 11:23 PM EDT) WBC 12.9(H) 4.4 - 11.3 x10*3/uL LAB HEMATOLOGY METHOD 08/15/2024 12:17 AM EDT [facility] nRBC 0.0 0.0 - 0.0 /100 WBCs LAB HEMATOLOGY METHOD 08/15/2024 12:17 AM EDT [facility] RBC 3.68(L) 4.00 - 5.20 x10*6/uL LAB HEMATOLOGY METHOD 08/15/2024 12:17 AM EDT [facility] Hemoglobin 10.9(L) 12.0 - 16.0 g/dL LAB HEMATOLOGY METHOD 08/15/2024 12:17 AM [facility] Hematocrit 30.4(L) 36.0 - 46.0 % LAB HEMATOLOGY METHOD 08/15/2024 12:17 AM EDT [facility] MCV 83 80 - 100 fL LAB [facility]OLOG[facility] MCH 29.6 26.0 - 34.0 pg LAB HEMATOLOGY METHOD 08/15/2024 12:17 AM [facility] MCHC 35.9 32.0 - 36.0 g/dL LAB HEMATOLOGY METHOD 08/15/2024 12:17 AM [facility] RDW 14.3 11.5 - 14.5 % LAB HEMATOLOGY METHOD 08/15/2024 12:17 AM [facility] Platelets 251 150 - 450 x10*3/uL LAB HEMATOLOGY METHOD 08/15/2024 12:17 AM [facility] Neutrophils % 83.6 40.0 - 80.0 % LAB HEMATOLOGY METHOD 08/15/2024 12:17 AM [facility] Immature Granulocytes %, Automated 0.6 0.0 - 0.9 % LAB HEMATOLOGY METHOD 08/15/2024 12:17 AM [facility] Comment:Immature Granulocyte Count (IG) includes promyelocytes, myelocytes and metamyelocytes but does not include bands. Percent differential counts (%) should be interpreted in the context of the absolute cell counts (cells/UL). Lymphocytes % 10.8 13.0 - 44.0 % LAB HEMATOLOGY METHOD 08/15/2024 12:17 AM EDT [facility] Monocytes % 4.8 2.0 - 10.0 % LAB HEMATOLOGY METHOD [facility]15[facility]2024 [facility] Eosinophils % 0.0 0.0 - 6.0 % LAB HEMATOLOGY METHOD 08/15/2024 12:17 AM EDT [facility] Basophils % 0.2 0.0 - 2.0 % LAB HEMATOLOGY METHOD 08/15/2024 12:17 AM EDT [facility] Neutrophils Absolute 10.80(H) 1.20 - 7.70 x10*3/uL LAB HEMATOLOGY METHOD 08/15/2024 12:17 AM EDT [facility] Comment:Percent differential counts (%) should be interpreted in the context of the absolute cell counts (cells/uL). Immature Granulocytes Absolute, Automated 0.08 0.00 - 0.70 x10*3/uL LAB HEMATOLOGY METHOD 08/15/2024 12:17 AM EDT [facility] Lymphocytes Absolute 1.39 1.20 - 4.80 x10*3/uL LAB HEMATOLOGY METHOD 08/15/2024 12:17 AM EDT [facility] Monocytes Absolute 0.62 0.10 - 1.00 x10*3/uL LAB HEMATOLOGY METHOD 08/15/2024 12:17 AM EDT [facility] Eosinophils Absolute 0.00 0.00 - 0.70 x10*3/uL LAB HEMATOLOGY METHOD 08/15/2024 12:17 AM EDT [facility] Basophils Absolute 0.02 0.00 - 0.10 x10*3/uL LAB HEMATOLOGY METHOD 08/15/2024 12:17 AM EDT [facility] Blood Venous blood specimen / Unknown Venipuncture / Unknown 08/14/2024 11:23 PM EDT 08/15/2024 12:09 AM EDT us Dereje Sparrow PA-C LAB BLOOD ORDERABLES Fin al Result Performing Organization Address City/State/[facility] Co de Phone Number [facility] [id number] [place] [address] * ECG 12 lead (08/14/2024 10:21 PM EDT) Ventricular Rate 82 BPM MUSE Atrial Rate 82 BPM MUSE SD Interval 118 ms MUSE QRS Duration 70 ms MUSE QT Interval 362 ms MUSE QTC Calculation(Baze tt) 422 ms MUSE P [place] 78 degrees MUSE R [place] 93 degrees MUSE T [place] 46 degrees MUSE QRS Count 14 beats MUSE Q Onset 220 ms MUSE P Onset 161 ms MUSE P Offset 204 ms MUSE T Offset 401 ms MUSE QTC Fredericia 401 ms MUSE 08/14/2024 10:1 4 PM EDT 08/15/2024 11:32 AM EDT Narrative MUSE - 08/15/2024 11:32 AM EDT Normal sinus rhythm Rightward axis Borderline ECG When compared with ECG of 13-AUG-2024 09:19, No significant change was found See ED provider note for full interpretation and clinical correlation Confirmed by Lynsey Luna ([id number]) on 08/15/2024 11:32:35 AM Procedure Note Lynsey Luna APRN-JOSE - 08/15/2024 Normal sinus rhythm Rightward axis Borderline ECG When compared with ECG of 13-AUG-2024 09:19, No significant change was found See ED provider note for full interpretation and clinical correlation Confirmed by Lynsey Luna ([id number]) on 08/15/2024 11:32:35 AM us Joan Dobson MD ECG ORDERABLES Final Resu lt MUSE documented in this encounter Visit Diagnoses Diagnosis 14 weeks gestation of ([facility])- Primary 15 weeks gestation of ([facility]) Nausea and vomiting, unspecified vomiting type Chest pain, unspecified type documented in this encounter Admitting Diagnoses Diagnosis 14 weeks gestation of ([facility]) documented in this encounter Administered Medications Inactive Administered Medications - up to 3 most recent administrations Medication Order MAR Action Action Date Dose Rate Site acetaminophen (Tylenol) suppository 650 mg 650 mg, rectal, Every 6 hours scheduled, First dose on Sun08/15/24 at 1800, If ordered PRN for pain, nurse is permitted to administer this medication for higher pain scores based on patient preference? Yes Given 08/15/2024 6:14 PM EDT 650 mg benzocaine-menthol (Cepastat Sore Throat) lozenge 1 lozenge 1 lozenge, Mouth/Throat, Every 2 hour PRN, sore throat, Starting on Sun08/15/24 at 1540 Given 08/15/2024 4:30 PM EDT 1 lozenge calcium carbonate (Tums) 500 mg (200 mg elemental) chewable tablet 1 tablet 1 tablet, oral, Every 6 hours PRN, heartburn, Starting on Sun08/15/24 at 0305 Given 08/15/2024 8:06 AM EDT 1 tablet capsicum (Zostrix) 0.075 % topical cream Topical, 3 times daily, First dose on Sun08/15/24 at 1600, Apply to: abdomen or chest Given 08/15/2024 9:17 PM EDT dextrose 5 % and lactated Ringer's infusion 125 mL/hr, intravenous, Continuous, Starting on Moriah 08/14/24 at 2305, For 1 day New Bag 08/15/2024 12:19 AM EDT 125 mL/hr 125 mL/hr dextrose 5 % and lactated Ringer's infusion 125 mL/hr, intravenous, Continuous, Starting on Sun08/15/24 at 0310, For 1 day Rate/Dose Verify 08/15/2024 12:09 PM EDT 125 mL/hr 125 mL/hr Rate/Dose Verify 08/15/2024 9:27 AM EDT 125 mL/hr 125 mL/ hr New Bag 08/15/2024 3:20 AM EDT 125 mL/hr 125 mL/hr diphenhydrAMINE (BENADryl) injection 12.5 mg 12.5 mg, intravenous, Once, On Sun08/15/24 at 1020, For 1 dose, If giving IV push, max rate of 25 mg/min. Given 08/15/2024 10:22 AM EDT 12.5 mg diphenhydrAMINE (BENADryl) injection 25 mg 25 mg, intravenous, Once, On Sun08/15/24 at 0000, For 1 dose, If giving IV push, max rate of 25 mg/min. Given 08/15/2024 12:09 AM EDT 25 mg diphenhydrAMINE (BENADryl) injection 25 mg 25 mg, intravenous, Every 6 hours, First dose on Sun08/15/24 at 0310, If giving IV push, max rate of 25 mg/min. Given 08/15/2024 8:02 PM EDT 25 mg Given 08/15/2024 1:30 PM EDT 25 mg Given 08/15/2024 5:32 AM EDT 25 mg famotidine PF (Pepcid) injection 20 mg 20 mg, intravenous, Administer over 2 Minutes, Once, On [place] 08/14/24 at 2305, For 1 dose Given 08/14/2024 11:27 PM EDT 20 mg famotidine PF (Pepcid) injection 20 mg 20 mg, intravenous, Administer over 2 Minutes, Every 12 hours scheduled, First dose on Sun08/15/24 at 2100 Given 08/15/2024 9:28 PM EDT 20 mg haloperidol lactate (Haldol) injection 5 mg/mL - Omnicell Override Pull Starting on Sun08/15/24 at 1600, For 1 dose, Created by cabinet override haloperidol lactate (Haldol) injection 5 mg 5 mg, intramuscular, Once, On Sun08/15/24 at 1615, For 1 dose, Patients receiving IV haloperidol should be on continuous cardiac monitoring. Given 08/15/2024 4:14 PM EDT 5 mg HYDROmorphone (Dilaudid) injection 0.2 mg 0.2 mg, intravenous, Every 3 hours PRN, pain severe (7-10), first line, Starting on Sun08/15/24 at 0305 Given 08/15/2024 1:19 PM EDT 0.2 mg Given 08/15/2024 9:41 AM EDT 0.2 mg Given 08/15/2024 6:44 AM EDT 0.2 mg HYDROmorphone (Dilaudid) injection 0.5 mg 0.5 mg, intravenous, Once, On Sun08/15/24 at 0030, For 1 dose Given 08/15/2024 12:28 AM EDT 0.5 mg HYDROmorphone PF (Dilaudid) injection 0.2 mg 0.2 mg, intravenous, Once, On Sun08/15/24 at 1330, For 1 dose Given 08/15/2024 1:30 PM EDT 0.2 mg hydrOXYzine HCL (Atarax) tablet 25 mg 25 mg, oral, Once, On Sun08/15/24 at 2030, For 1 dose Given 08/15/2024 9:17 PM EDT 25 mg ketorolac (Toradol) injection 30 mg 30 mg, intravenous, Once, On Sun08/15/24 at 0900, For 1 dose Given 08/15/2024 9:11 AM EDT 30 mg labetaloL (Normodyne,Trandate) injection 5 mg 5 mg, intravenous, Once, On [place]iah 08/14/24 at 2305, For 1 dose, Give at rate of 10 mg/min. Given 08/14/2024 11:27 PM EDT 5 mg gltdidemf-plruzqovmoEGSAO-Gdgqil 1:1:1 Magic Mouthwash 10 mL, Swish & Swallow, Every 6 hours PRN, stomatitis, mucositis, other, GERD, Starting on Sun08/15/24 at 1306 Given 08/15/2024 2:55 PM EDT 10 mL magnesium sulfate 2 g in sterile water for injection 50 mL 2 g, intravenous, at 25 mL/hr, Administer over 2 Hours, Once, On Sun08/15/24 at 0310, For 1 dose New Bag 08/15/2024 9:34 AM EDT 2 g 25 mL/hr metoclopramide (Reglan) injection 10 mg 10 mg, intravenous, Once, On [place] 08/14/24 at 2355, For 1 dose Given 08/15/2024 12:07 AM EDT 10 mg metoclopramide (Reglan) injection 10 mg 10 mg, intravenous, Every 6 hours scheduled, First dose on Sun08/15/24 at 0600 Given 08/15/2024 6:05 PM EDT 10 mg Given 08/15/2024 12:09 PM EDT 10 mg Given 08/15/2024 5:33 AM EDT 10 mg OLANZapine (ZyPREXA) tablet 2.5 mg 2.5 mg, oral, 2 times daily, First dose on Sun08/15/24 at 0900, On hold since Sun08/15/2024 at 1557 until manually unheld Given 08/15/2024 2:55 PM EDT 2.5 mg OLANZapine zydis (ZyPREXA) disintegrating tablet 2.5 mg 2.5 mg, oral, 2 times daily, First dose on Sun08/15/24 at 2100 Given 08/15/2024 9:17 PM EDT 2.5 mg ondansetron (Zofran) injection 4 mg 4 mg, intravenous, Once, On [facility] 08/14/24 at 2345, For 1 dose, When administering via IV Push, administer over 3-5 minutes. Given 08/14/2024 11:48 PM EDT 4 mg ondansetron (Zofran) injection 4 mg 4 mg, intravenous, Every 6 hours, First dose on Sun08/15/24 at 0310, When administering via IV Push, administer over 3-5 minutes. Given 08/15/2024 8:02 PM EDT 4 mg Given 08/15/2024 1:27 PM EDT 4 mg Given 08/15/2024 6:43 AM EDT 4 mg ondansetron (Zofran) injection 4 mg 4 mg, intravenous, Once, On Sun08/15/24 at 1010, For 1 dose, When administering via IV Push, administer over 3-5 minutes. Given 08/15/2024 10:18 AM EDT 4 mg pantoprazole (Protonix) injection 40 mg 40 mg, intravenous, Daily, First dose on Sun08/15/24 at 0900, Reconstitute each 40 mg vial with 10 mL NS to make 4 mg/mL solution. Given 08/15/2024 9:32 AM EDT 40 mg perflutren lipid microspheres (Definity) injection 0.5-10 mL of dilution 0.5-10 mL of dilution, intravenous, Once in imaging, Starting on Sun08/15/24 at 1203, For 1 dose, CV Medications, Contrast - for use by imaging provider only. Prior to administration, Definity product must be activated. First, bring vial to room temperature. Then, shake vial for 45 seconds. Do not use if the 45 second activation cycle has not been completed. Following activation, the product will appear as a milky white suspension and may be used immediately. If not used within 5 minutes of activation, re-suspend by inverting and shaking the vial for 10 seconds. Discard unused product. Administration: Dilute 1.3 mL of activated DEFINITY with 8.7 mL of normal saline in a 10 mL syringe. Inject 0.5 mL of diluted DEFINITY when notified the images/film are unclear to enhance view of Left Ventricular borders. Repeat 0.5 mL of DEFINITY until clear images are obtained, not to exceed 10 mLs. Once images are obtained or limit of medication is reached, flush line with 10 mL of Normal Saline. perflutren protein A microsphere (Optison) injection 0.5 mL 0.5 mL, intravenous, Once in imaging, Starting on Sun08/15/24 at 1110, For 1 dose, CV Medications potassium chloride 20 mEq in sterile water for injection 100 mL 20 mEq, intravenous, at 50 mL/hr, Administer over 2 Hours, Every 2 hours, First dose on Sun08/15/24 at 0310, For 2 doses, Total dose is 40 mEq via peripheral line. New Bag 08/15/2024 7:03 AM EDT 20 mEq 50 mL/ hr New Bag 08/15/2024 4:00 AM EDT 20 mEq 50 mL/hr prochlorperazine (Compazine) injection 10 mg 10 mg, intravenous, Every 6 hours PRN, nausea/vomiting, first line, Starting on Sun08/15/24 at 0305, Give IV if patient is unable to take orally. Given 08/15/2024 3:46 AM EDT 10 mg prochlorperazine (Compazine) suppository 25 mg 25 mg, rectal, Every 12 hours PRN, nausea/vomiting, first line, Starting on Sun08/15/24 at 0305, Give SD if patient is unable to take orally or receive by injection. prochlorperazine (Compazine) tablet 10 mg 10 mg, oral, Every 6 hours PRN, nausea/vomiting, first line, Starting on Sun08/15/24 at 0305 promethazine (Phenergan) 12.5 mg in sodium chloride 0.9% 50 mL IV 12.5 mg, intravenous, Administer over 15 Minutes, Once, On Sun08/15/24 at 1015, For 1 dose New Bag 08/15/2024 10:33 AM EDT 12.5 mg QUEtiapine (SEROquel) tablet 50 mg 50 mg, oral, 2 times daily, First dose on Sun08/15/24 at 0900 Given 08/15/2024 2:55 PM EDT 50 mg scopolamine (Transderm-Scop) patch 1 patch 1 patch, transdermal, Administer over 72 Hours, Every 72 hours, First dose on Sun08/15/24 at 0310, Wash hands before and after application to avoid drug contact with eyes. Apply to hairless area of skin behind the ear. Once patch has been affixed behind ear, do not touch while being worn. Medication Applied 08/15/2024 3:45 AM EDT 1 patch Behind Right Ear senna (Senokot) 8.8 mg/5 mL syrup 5 mL 5 mL, oral, 2 times daily, First dose on Sun08/15/24 at 0900 sulfur hexafluoride microsphr (Lumason) injection 24.28 mg 24.28 mg (2 mL), intravenous, Once in imaging, Starting on Sun08/15/24 at 1203, For 1 dose, CV Medications, Follow administration with 5 mL NaCL 0.9% injection. thiamine (Vitamin B1) injection 100 mg 100 mg, intravenous, Daily, First dose on Sun08/15/24 at 1105, For IV push use, administer over 1-2 minutes. Given 08/15/2024 12:08 PM EDT 100 mg documented in this encounter Active and Recently Administered Medications Times are shown in EDT. Scheduled Medication Order 08/13/2024 08/14/2024 08/15/2024 acetaminophen (Tylenol) suppository 650 mg 650 mg, rectal, Every 6 hours scheduled, First dose on Sun08/15/24 at 1800, If ordered PRN for pain, nurse is permitted to administer this medication for higher pain scores based on patient preference? Yes 1813 (Given - Provid er: Brittany Diez RN) capsicum (Zostrix) 0.075 % topical cream Topical, 3 times daily, First dose on Sun08/15/24 at 1600, Apply to: abdomen or chest 1600 (Canceled Entry - Provider: Automatic Discharge Provider - Comment: Automatically canceled at discontinue of medication order)2116 (Given - Provider: Isabella Harris RN) diphenhydrAMINE (BENADryl) injection 12.5 mg (COMPLETED) 12.5 mg, intravenous, Once, On Sun08/15/24 at 1020, For 1 dose, If giving IV push, max rate of 25 mg/min. 1022 (Given - Provid er: Mery Cole RN) diphenhydrAMINE (BENADryl) injection 25 mg (COMPLETED) 25 mg, intravenous, Once, On Sun08/15/24 at 0000, For 1 dose, If giving IV push, max rate of 25 mg/min. 0009 (Given - Provid er: Karis Newton RN) diphenhydrAMINE (BENADryl) injection 25 mg 25 mg, intravenous, Every 6 hours, First dose on Sun08/15/24 at 0310, If giving IV push, max rate of 25 mg/min. 0532 (Given - Provid er: Karis Newton RN)1330 (Given - Provider: Brittany Diez RN)2001 (Given - Provider: Isabella Harris RN) famotidine PF (Pepcid) injection 20 mg (COMPLETED) 20 mg, intravenous, Administer over 2 Minutes, Once, On Moriah 08/14/24 at 2305, For 1 dose 2326 (Given - Provider: Karis Newton RN) famotidine PF (Pepcid) injection 20 mg 20 mg, intravenous, Administer over 2 Minutes, Every 12 hours scheduled, First dose on Sun08/15/24 at 2100 212 (Given - Provid er: Isabella Harris RN) haloperidol lactate (Haldol) injection 5 mg (COMPLETED) 5 mg, intramuscular, Once, On Sun08/15/24 at 1615, For 1 dose, Patients receiving IV haloperidol should be on continuous cardiac monitoring. 161 (Given - Provid er: Brittany Diez RN - Comment: right thigh) HYDROmorphone (Dilaudid) injection 0.5 mg (COMPLETED) 0.5 mg, intravenous, Once, On Sun08/15/24 at 0030, For 1 dose 0028 (Given - Provid er: Karis Newton RN) HYDROmorphone PF (Dilaudid) injection 0.2 mg (COMPLETED) 0.2 mg, intravenous, Once, On Sun08/15/24 at 1330, For 1 dose 1330 (Given - Provid er: Brittany Diez RN) hydrOXYzine HCL (Atarax) tablet 25 mg (COMPLETED) 25 mg, oral, Once, On Sun08/15/24 at 2030, For 1 dose 2116 (Given - Provid er: Isabella Harris RN) ketorolac (Toradol) injection 30 mg (COMPLETED) 30 mg, intravenous, Once, On Sun08/15/24 at 0900, For 1 dose 09 (Given - Provid er: Mery Cole RN) labetaloL (Normodyne,Trandate) injection 5 mg (COMPLETED) 5 mg, intravenous, Once, On Moriah 08/14/24 at 2305, For 1 dose, Give at rate of 10 mg/min. 232 (Given - Provider: Karis Newton RN) magnesium sulfate 2 g in sterile water for injection 50 mL (COMPLETED) 2 g, intravenous, at 25 mL/hr, Administer over 2 Hours, Once, On Sun08/15/24 at 0310, For 1 dose 0934 (New Bag - Prov ider: Mery Cole, CINDY)1134 (Stopped - Provider: Mery Cloe, RN) metoclopramide (Reglan) injection 10 mg (COMPLETED) 10 mg, intravenous, Once, On Moriah 08/14/24 at 2355, For 1 dose 0007 (Given - Provid er: Karis Newton RN) metoclopramide (Reglan) injection 10 mg 10 mg, intravenous, Every 6 hours scheduled, First dose on Sun08/15/24 at 0600 0533 (Given - Provid er: Karis Newton RN)1209 (Given - Provider: Mery Cole RN)1805 (Given - Provider: Brittany Diez RN) OLANZapine (ZyPREXA) tablet 2.5 mg 2.5 mg, oral, 2 times daily, First dose on Sun08/15/24 at 0900, On hold since Sun08/15/2024 at 1557 until manually unheld 1455 (Given - Provid er: Brittany Diez RN)1557 (Held by provider - Provider: Karis Obregon MD - Reason: Other)2100 (Dose Auto Held - Provider: Karis Obregon MD)2351 (Unheld by provider - Provider: Automatic Discharge Provider) OLANZapine zydis (ZyPREXA) disintegrating tablet 2.5 mg 2.5 mg, oral, 2 times daily, First dose on Sun08/15/24 at 2100 2117 (Given - Provid er: Isabella Harris RN) ondansetron (Zofran) injection 4 mg (COMPLETED) 4 mg, intravenous, Once, On Moriah 08/14/24 at 2345, For 1 dose, When administering via IV Push, administer over 3-5 minutes. 2348 (Given - Provider: Karis Newton RN) ondansetron (Zofran) injection 4 mg 4 mg, intravenous, Every 6 hours, First dose on Sun08/15/24 at 0310, When administering via IV Push, administer over 3-5 minutes. 0643 (Given - Provid er: Karis Newton, RN)1327 (Given - Provider: Nahomi Elder, RN)2001 (Given - Provider: Isabella Harris RN) ondansetron (Zofran) injection 4 mg (COMPLETED) 4 mg, intravenous, Once, On Sun08/15/24 at 1010, For 1 dose, When administering via IV Push, administer over 3-5 minutes. 1018 (Given - Provid er: Mery Cole, CINDY) pantoprazole (Protonix) injection 40 mg 40 mg, intravenous, Daily, First dose on Sun08/15/24 at 0900, Reconstitute each 40 mg vial with 10 mL NS to make 4 mg/mL solution. 0932 (Given - Provid er: Mery Cole RN) perflutren lipid microspheres (Definity) injection 0.5-10 mL of dilution 0.5-10 mL of dilution, intravenous, Once in imaging, Starting on Sun08/15/24 at 1203, For 1 dose, CV Medications, Contrast - for use by imaging provider only. Prior to administration, Definity product must be activated. First, bring vial to room temperature. Then, shake vial for 45 seconds. Do not use if the 45 second activation cycle has not been completed. Following activation, the product will appear as a milky white suspension and may be used immediately. If not used within 5 minutes of activation, re-suspend by inverting and shaking the vial for 10 seconds. Discard unused product. Administration: Dilute 1.3 mL of activated DEFINITY with 8.7 mL of normal saline in a 10 mL syringe. Inject 0.5 mL of diluted DEFINITY when notified the images/film are unclear to enhance view of Left Ventricular borders. Repeat 0.5 mL of DEFINITY until clear images are obtained, not to exceed 10 mLs. Once images are obtained or limit of medication is reached, flush line with 10 mL of Normal Saline. perflutren protein A microsphere (Optison) injection 0.5 mL 0.5 mL, intravenous, Once in imaging, Starting on Sun08/15/24 at 1110, For 1 dose, CV Medications potassium chloride 20 mEq in sterile water for injection 100 mL (COMPLETED) 20 mEq, intravenous, at 50 mL/hr, Administer over 2 Hours, Every 2 hours, First dose on Sun08/15/24 at 0310, For 2 doses, Total dose is 40 mEq via peripheral line. 0400 (New Bag - Prov ider: Karis Newton RN)0702 (Stopped - Provider: Karis Newton RN)0703 (New Bag - Provider: Karis Newton RN)0903 (Stopped - Provider: Mery Cole RN) vitamin (iron-folic) tablet 1 tablet 1 tablet, oral, Daily, First dose on Sun08/15/24 at 0900, provides 0.8 mg folic acid 1432 (Not Given - Provider: Brittany Diez RN - Reason: Contraindicated) promethazine (Phenergan) 12.5 mg in sodium chloride 0.9% 50 mL IV (COMPLETED) 12.5 mg, intravenous, Administer over 15 Minutes, Once, On Sun08/15/24 at 1015, For 1 dose 1033 (New Bag - Prov ider: Mery Cole RN)1048 (Stopped - Provider: Mery Cole RN) QUEtiapine (SEROquel) tablet 50 mg 50 mg, oral, 2 times daily, First dose on Sun08/15/24 at 0900 1455 (Given - Provid er: Brittany Diez RN) scopolamine (Transderm-Scop) patch 1 patch 1 patch, transdermal, Administer over 72 Hours, Every 72 hours, First dose on Sun08/15/24 at 0310, Wash hands before and after application to avoid drug contact with eyes. Apply to hairless area of skin behind the ear. Once patch has been affixed behind ear, do not touch while being worn. 0345 (Medication Korey lied - Provider: Karis Newton RN)2139 (Due: Medication Removed - Provider: Automatic Discharge Provider - Comment: Time automatically adjusted from order being discontinued) senna (Senokot) 8.8 mg/5 mL syrup 5 mL 5 mL, oral, 2 times daily, First dose on Sun08/15/24 at 0900 09 (Not Given - Provider: Mery Cole RN - Reason: Patient/family refused)2116 (Not Given - Provider: Isabella Harris RN - Reason: Patient/family refused) sulfur hexafluoride microsphr (Lumason) injection 24.28 mg 24.28 mg (2 mL), intravenous, Once in imaging, Starting on Sun08/15/24 at 1203, For 1 dose, CV Medications, Follow administration with 5 mL NaCL 0.9% injection. thiamine (Vitamin B1) injection 100 mg 100 mg, intravenous, Daily, First dose on Sun08/15/24 at 1105, For IV push use, administer over 1-2 minutes. 1208 (Given - Provid er: Mery Cole RN) Continuous Medication Order 08/13/2024 08/14/2024 08/15/2024 dextrose 5 % and lactated Ringer's infusion (CANCELED) 125 mL/hr, intravenous, Continuous, Starting on Sun08/14/24 at 2305, For 1 day 0019 (New Bag - Prov ider: Karis Newton RN)0312 (Stopped - Provider: Karis Newton RN - Comment: [Order ends at this time. Document the following action when infusion is complete: Stopped]) dextrose 5 % and lactated Ringer's infusion 125 mL/hr, intravenous, Continuous, Starting on Sun08/15/24 at 0310, For 1 day 0320 (New Bag - Prov ider: Karis Newton RN)0927 (Rate/Dose Verify - Provider: Mery Cole RN)1209 (Rate/Dose Verify - Provider: Mery Cole RN)2351 (Due: Order Ending - Provider: Automatic Discharge Provider - Comment: [Order ends at this time. Document the following action when infusion is complete: Stopped]) PRN Medication Order 08/13/2024 08/14/2024 08/15/2024 benzocaine-menthol (Cepastat Sore Throat) lozenge 1 lozenge 1 lozenge, Mouth/Throat, Every 2 hour PRN, sore throat, Starting on Sun08/15/24 at 1540 1630 (Given - Provid er: Brittany Diez RN) bisacodyl (Dulcolax) suppository 10 mg 10 mg, rectal, Daily PRN, constipation, first line, Severe, Starting on Sun08/15/24 at 0305 calcium carbonate (Tums) 500 mg (200 mg elemental) chewable tablet 1 tablet 1 tablet, oral, Every 6 hours PRN, heartburn, Starting on Sun08/15/24 at 0305 0806 (Given - Provid er: Mery Cole, CINDY) hydrALAZINE (Apresoline) injection 5 mg 5 mg, intravenous, Administer over 2 Minutes, Once as needed, Systolic greater than or equal to 160 OR Diastolic greater than or equal to 110, Starting on Sun08/15/24 at 0305, For 1 dose, Consult provider prior to administration. Push over more than 2 minutes. Systolic greater than or equal to 160 OR Diastolic greater than or equal to 110. Repeat blood pressure in 20 minutes. Contraindication: coronary artery disease (CAD); Caution in suspected CAD HYDROmorphone (Dilaudid) injection 0.2 mg (CANCELED) 0.2 mg, intravenous, Every 3 hours PRN, pain severe (7-10), first line, Starting on Sun08/15/24 at 0305 0346 (Given - Provid er: Karis Newton RN)0644 (Given - Provider: Karis Newton RN)0941 (Given - Provider: Mery Cole, CIDNY)1319 (Given - Provider: Brittany Diez RN) labetaloL (Normodyne,Trandate) injection 20 mg 20 mg, intravenous, Administer over 2 Minutes, Once as needed, Systolic greater than or equal to 160 OR Diastolic greater than or equal to 110, Starting on Sun08/15/24 at 0305, For 1 dose, Consult provider prior to administration. Push over more than 2 minutes. Systolic greater than or equal to 160 OR Diastolic greater than or equal to 110. Repeat blood pressure in 10 minutes. Contraindications: active asthma, heart disease, heart failure, maternal bradycardia < 60. lidocaine (Xylocaine) 10 mg/mL (1 %) injection 0.5 mL 0.5 mL, subcutaneous, Once as needed, Prior to IV insertion, Starting on Sun08/15/24 at 0305, For 1 dose [id number] 1:1:1 Magic Mouthwash 10 mL, Swish & Swallow, Every 6 hours PRN, stomatitis, mucositis, other, GERD, Starting on Sun08/15/24 at 1306 1455 (Given - Provid er: Brittany Diez RN) magnesium hydroxide (Milk of Magnesia) 400 mg/5 mL suspension 10 mL 10 mL, oral, Every 24 hours PRN, constipation, second line, Starting on Sun08/15/24 at 0305, Follow administration with 8 ounces of water. NIFEdipine (Procardia) capsule 10 mg 10 mg, oral, Once as needed, Systolic greater than or equal to 160 OR Diastolic greater than or equal to 110, Starting on Sun08/15/24 at 0305, For 1 dose, Consult provider prior to administration. polyethylene glycol (Glycolax, Miralax) packet 17 g 17 g, oral, 2 times daily PRN, constipation, first line, Starting on Sun08/15/24 at 0305 prochlorperazine (Compazine) injection 10 mg(Linked Group 1) 10 mg, intravenous, Every 6 hours PRN, nausea/vomiting, first line, Starting on Sun08/15/24 at 0305, Give IV if patient is unable to take orally. 0346 (Given - Provid er: Karis Newton RN) prochlorperazine (Compazine) suppository 25 mg(Linked Group 1) 25 mg, rectal, Every 12 hours PRN, nausea/vomiting, first line, Starting on Sun08/15/24 at 0305, Give SD if patient is unable to take orally or receive by injection. 0346 (See Alternativ e - Provider: Karis Newton RN) prochlorperazine (Compazine) tablet 10 mg(Linked Group 1) 10 mg, oral, Every 6 hours PRN, nausea/vomiting, first line, Starting on Sun08/15/24 at 0305 0346 (See Alternativ e - Provider: Karis Newton RN) simethicone (Mylicon) chewable tablet 80 mg 80 mg, oral, 4 times daily PRN, flatulence, Starting on Sun08/15/24 at 0305 Linked Groups Order Group 1: prochlorperazine (Compazine) tablet 10 mgJump to med 10 mg, oral, Every 6 hours PRN, nausea/vomiting, first line, Starting on Sun08/15/24 at 0305 Or prochlorperazine (Compazine) injection 10 mgJump to med 10 mg, intravenous, Every 6 hours PRN, nausea/vomiting, first line, Starting on Sun08/15/24 at 0305, Give IV if patient is unable to take orally. Or prochlorperazine (Compazine) suppository 25 mgJump to med 25 mg, rectal, Every 12 hours PRN, nausea/vomiting, first line, Starting on Sun08/15/24 at 0305, Give SD if patient is unable to take orally or receive by injection. documented in this encounter Care Teams Institutional Asset Manager Relationship Specialty Start Date End Date Joe Zuleta DO [address] [facility] [place] [address] PCP - General Family Medicine 08/13/24 documented as of this encounter
--- OUTSIDE RECORDS SUMMARY | 2024-08-14 22:25 | XMS_ITS | Encounter Summary ---
Author Organization [facility] Address [address] [place] [address] Phone Care Team Providers Care Custom Motorcycle Painter Name Role Phone Joe Zuletauart GARDNER Primary Care Provider + Reason for Visit * Auth/Cert Specialty Diagnoses / Procedures Referred By Niki t Referred To Contact Diagnoses 14 weeks gestation of ([facility]) [place] [address] [place] [address] Phone: tel: fax: [facility] Emergency Medicine [address] [place] [address] Phone: tel: fax: Referral ID Status Reason Start Date Expiration Date Visits Re quested Visits Authorized [id number] 1 1 Encounter Details Date Type Department Care Team (Late st Contact Info) Description 08/14/2024 10:25 PM EDT Clinical Support [facility] Emergency Medicine [address] [place] [id number] Social History Tobacco Use Types Packs/Day Years Used Date Smoking Tobacco: Never Assessed Humiliation, Afraid, Rape, and Kick questionnair e [...] as of this encounter Functional Status * Audit-C Score [...] one occasion? Never 08/15/2024 8:29 PM EDT Hang Harris RN * Over the past 2 weeks, how often have you been bothered by any of the following problems? Question Answer Date of Assessment Author Patient Health Questionnaire -2 Score 1 08/15/2024 2:13 PM EDT Brittany Diez RN * Calculated C-SSRS Risk Score (Lifetime/Recent) Answer Date of Assessment Author No Risk Indicated 08/15/2024 2:01 PM EDT Brittany Diez RN * [place] Suicide Severity Rating Scale (Screener/Recent Self-Report) Question [...] Diez RN documented as of this encounter Plan of Treatment Not on file documented as of this encounter Procedures Procedure Name Priority Date/Time Associated Diagnosis Comments ECG 12-LEAD STAT 08/14/2024 10:21 PM EDT documented in this encounter Results * ECG 12 lead (08/14/2024 10:21 PM EDT) Ventricular Rate 82 BPM MUSE Atrial Rate 82 BPM MUSE [place] Interval 118 ms MUSE QRS Duration 70 ms MUSE QT Interval 362 ms MUSE QTC Calculation(Baze tt) 422 ms MUSE P [place] 78 degrees MUSE R [place] 93 degrees MUSE T [place] 46 degrees MUSE QRS Count 14 beats [...] correlation Confirmed by Lynsey Luna ([id number]) on 08/15/2024 11:32:35 AM Procedure Note Lynsey Luna, ROOFING SUBCONTRACTOR-DOWEL SETTING MACHINE OPERATOR - 08/15/2024 Normal sinus rhythm Rightward axis Borderline ECG When compared with ECG of 13-AUG-2024 09:19, No significant change was found See ED provider note for full interpretation and clinical correlation Confirmed by Lynsey Luna ([id number]) on 08/15/2024 11:32:35 AM us Joan Dobson MD ECG ORDERABLES Final Resu lt MUSE documented in this encounter Visit Diagnoses Not on filedocumented in this encounter Care Teams Custom Motorcycle Painter Relationship Specialty Start Date End Date Joe Zuleta DO [address] [facility] [place] [address] PCP - General Family Medicine 08/13/24 documented as of this encounter
--- OUTSIDE RECORDS SUMMARY | 2024-08-15 10:45 | XMS_ITS | Encounter Summary ---
Author Organization [facility] Address [address] [place] [address] Phone Care Team Providers Care Shrimp Peeling Machine Operator Name Role Phone Joe Zuletauart GARDNER Primary Care Provider + Reason for Visit * Auth/Cert Specialty Diagnoses / Procedures Referred By Niki t Referred To Contact Diagnoses 14 weeks gestation of ([facility]) [place] [address] [place] [address] Phone: tel: fax: [facility] Emergency Medicine [address] [place] [address] Phone: tel: fax: Referral ID Status Reason Start Date Expiration Date Visits Re quested Visits Authorized [id number] 1 1 Encounter Details Date Type Department Care Team (Late st Contact Info) Description 08/15/2024 10:45 AM EDT Clinical Support [facility] Emergency Medicine [address] [place] [address] Social History Tobacco Use Types Packs/Day Years Used Date Smoking Tobacco: Never Smokeless Tobacco: Never Humiliation, Afraid, Rape, and Kick questionnair e [...] 2:01 PM EDT Brittany Diez RN * [place] Suicide Severity Rating Scale (Screener/Recent Self-Report) Question [...] things Not at all 08/15/2024 2:13 PM CAROLT Brittany Diez RN Feeling down, depressed, or hopeless Several days 08/15/2024 2:13 PM EDT Brittany Diez RN documented as of this encounter Plan of Treatment Not on file documented as of this encounter Procedures Procedure Name Priority Date/Time Associated Diagnosis Comments ECG 12-LEAD STAT 08/15/2024 10:42 AM EDT documented in this encounter Results * ECG 12 lead (08/15/2024 10:42 AM EDT) Ventricular Rate 70 BPM MUSE Atrial Rate 70 BPM MUSE [place] Interval 126 ms MUSE QRS Duration 72 ms MUSE QT Interval 386 ms MUSE QTC Calculation(Baze tt) 416 ms MUSE P [place] 77 degrees MUSE R [place] 88 degrees MUSE T [place] 62 degrees MUSE QRS Count 12 beats [...] and clinical correlation Confirmed by Baylee Pizano ([id number]) on 08/17/2024 6:01:46 AM Procedure Note Baylee Pizano APRN-SENIOR SYSTEMS ANALYST - 08/17/2024 Normal sinus rhythm Normal ECG When compared with ECG of 14-AUG-2024 22:14, No significant change was found See ED provider note for full interpretation and clinical correlation Confirmed by Baylee Pizano ([id number]) on 08/17/2024 6:01:46 AM us Marek Nelson DO ECG ORDERABLES Final Result MUSE documented in this encounter Visit Diagnoses Not on filedocumented in this encounter Care Teams Shrimp Peeling Machine Operator Relationship Specialty Start Date End Date Joe Zuleta DO [address] [facility] [place] [address] PCP - General Family Medicine 08/13/24 documented as of this encounter
--- OUTSIDE RECORDS SUMMARY | 2024-08-18 11:30 | XMS_ITS | Encounter Summary ---
Author Organization [facility] Address [address] [place] [address] Care Team Providers Care Engineering Specialist Name Role Phone Joe Welch DO Primary Care Provider [phone] Reason for Referral * Eval and Treat (Routine) - Open Specialty Diagnoses / Procedures Referred By Contac t Referred To Contact Speech Pathology / Speech Therapy Diagnoses Hyperemesis Food aversion Joe Welch DO [address] [place] [address] Phone: tel: fax: Jann Caal, DEBRA Referral ID Status Reason Start Date Expiration Date V isits Requested Visits Authorized [id number] Open Specialty Services Required 08/18/2024 08/18/2025 1 1 Scheduling Instructions [facility] - Speech Therapy Comments The patient can be scheduled with any member of the group, including the provider with the first available appointments. Reason for Visit * Reason Comments Follow-up Encounter Details Date Type Department Care Team (Late st Contact Info) Description 08/18/2024 11:30 AM EDT Telemedicine [facility] [address] [place], [place] [phone] Joe Welch DO [address] [place] [address] Diffuse esophageal spasm (Primary Dx); Hyperemesis; Food aversion Social History Tobacco Use Types Packs/Day Years Used Date Smoking Tobacco: Never Smokeless Tobacco: Never Tobacco Cessation:Counseling Given: No Alcohol Use Standard Drinks/Week Comments Not Currently 0 (1 standard drink = 0.6 oz pur e alcohol) [facility] Utilities Answer Date Recorded In the past 12 months has th e electric, gas, oil, or water company threatened to shut off services in your [...] any time in the past 12 m [facility], were you homeless or living in a long-term (including now)? No 07/07/2024 Food Insecurity Answer Date Recorded Within the past 12 months, y ou worried that your food would run out before you got the money to buy more. 1 07/07/2024 Within the past 12 months, t he food you bought just didn't last and you didn't have money to get more. 1 07/07/2024 Comments Yes Sex and Gender Information Value Date Recorded Sex Assigned at Not on file Legal Sex Female 2:08 PM EDT Gender Identity Not on file Sexual Orientation Not on file documented as of this encounter Progress Notes * Joe Welch, DO - 08/18/2024 11:59 AM EDT Sue Colón, was evaluated through a synchronous (real-time) audio-video encounter. The patient (orguardian if applicable) is aware that this is a billable service, which includes applicable co-pays. This Virtual Visit was conducted with patient's (and/or legal guardian's) consent. Patient identifi cation was verified, and a caregiver was present when appropriate. The patient was located at Home: [address] [place] [id number] Provider was located at Facility (Appt Dept): [address] [place], [place] [id number] Confirm you are appropriately licensed, registered, or certified to deliver care in the state wherethe patient is located as indicated above. If you are not or unsure, please re-schedule the visit: Yes, I confirm. Sue Colón (: 1995) is a Established patient, presenting virtually for evaluation of the following: Below is the assessment and plan developed based on review of pertinent history, physical exam, labs, studies, and medications. Assessment & Plan 1. Chest pain. - Increased pain and limited mobility. - The chest pain may be due to a sliding hiatal hernia, causing the esophagus to cease propelling food forward, leading to spasms and subsequent chest and back pain. - Advised to continue consuming very frequent, small meals to minimize flare-ups. - Referral will be made to [facility] for consideration of total parenteral nutrition (TPN). Use of Levsin will be continued as needed. If severe heartburn occurs at night, famotidine may be reintroduced. 2. Hyperemesis. - Persistent vomiting, which may be exacerbated by anxiety and heartburn. - Reports that hyoscyamine worked initially but then stopped being effective. - Advised to continue with small, frequent meals and to use Levsin as needed. - Referral to [facility] will be made to assess eligibility for TPN. 3. Anxiety. - Anxiety may be contributing to her symptoms. - Reports that anxiety gets the best of her when symptoms occur. - Advised to continue with current medications, including olanzapine and Seroquel, and to use Levsin as needed for acute symptoms. - Discussed the potential need for additional medications if symptoms persist. 4. Suspected hiatal hernia. - Suspects a hiatal hernia due to a sensation of shifting in the stomach and associated pressure. - Reports that no testing has confirmed the presence of a hernia. - Advised to continue with small, frequent meals and to use Levsin as needed. - Referral to [facility] will be made to assess eligibility for TPN. Assessment & Plan Diffuse esophageal spasm Hyperemesis Orders: Alexandra Escobedo Food aversion Orders: Alexandra Guzmán - [facility] No follow-ups on file. Subjective HPI Review of Systems History of Present Illness The patient presents via virtual visit for evaluation of chest pain, hyperemesis, and anxiety. She was previously prescribed hyoscyamine, which initially alleviated her symptoms but subsequentlylost its efficacy. Despite taking the medication at 11 PM, her symptoms persisted, prompting a visit to [facility]. There, she was diagnosed with hyperemesis and chest pain due to excessive vomiting. She reports that her chest pain precedes her vomiting episodes and is not food-related. The severity of her chest pain has led to suicidal ideation. She was informed that her symptoms were likely due to and that she would not be prescribed any pain medication. She was advised to seek care at , but they also declined to see her. She was informed that her vomiting could be due to marijuana use, but she reports feeling better after smoking a blunt. She was discharged from the hospital on Sunday after being told that no further treatment would be provided over the weekend. She experienced severe heartburn upon returning home, which has since improved. She has been bedridden, with her providing her meals and assisting her to the bathroom. She experiences chest pain after eating and is considering terminating her due to her deteriorating health. She is interested in food therapy and is seeking a referral. She has been diagnosed with ADHD and experiences energy crashes. She was severely dehydrated and required fluid resuscitation with sugar. She has been documenting her symptoms and believes they are primarily due to heartburn. She has been unable to tolerate protein drinks and has been consuming small amounts of food. She has an appointment with maternal medicine on 09/02/2024. She has been experiencing these symptoms daily for the past 3 months. She was prescribed acetaminophen suppositories, which she took on the first night after returning h ome, along with olanzapine and Seroquel. She has not taken any medication since then as she believes her symptoms are primarily due to heartburn. She has been consuming almond milk and fruit, but hasvomited after consuming protein drinks and fruit. She has been eating small meals and has been feeling well today. She has been experiencing burping and farting every 2 minutes and has been consuming fruit and vegetables. She has been making smoothies with protein powder and has been avoiding dairyproducts. She has been feeling very achy and has been taking pantoprazole and Pepcid as needed. She underwent an upper GI scope in 11/2023, which did not reveal any abnormalities. She was informed that maternal medicine would not see her, but she could be seen in the ER. She was informed that her symptoms were likely due to hyperemesis and marijuana use. She has been forcing herself to eat despite a lack of appetite. She was informed that her primary care physician or OB would need toorder a full abdomen scan to rule out other causes of her symptoms. She was prescribed medication but is unsure which one to take. She was prescribed Klonopin, but it was not filled. She was prescribed Mylanta, but it was not filled. She was prescribed Ativan in the hospital, but it was not filled as she was discharging herself. She was prescribed acetaminophen suppositories, which she took on the first night after returning home, along with olanzapine and Seroquel. She has not taken any medication since then as she believes her symptoms are primarily due to heartburn. She has been experiencing anxiety, which she believes exacerbates her symptoms. She has been tryingto calm herself down when her pain starts. She was prescribed Klonopin, but it was not filled. She was prescribed Mylanta, but it was not filled. She was prescribed Ativan in the hospital, but it wasnot filled as she was discharging herself. She has been experiencing chest pain after eating and is considering terminating her due to her deteriorating health. She has been experiencing back pain along with her chest pain. She was informed that her ribs might be inflamed and was given a high-potency arthritis cream, which she applies to her upper back and chest. She has been performing exercises for her back pain, but the pain persists. She has been experiencing a weird pressure in her stomach and is concerned about a possible hernia. She was informed that a hernia could be removed during her , but she has been unable to get anyone to perform the necessary testing. Objective Patient-Reported Vitals No data recorded Physical [...] Type Priority Associated Diagnoses Orde r Schedule [facility] Outpatient Referral Routine Hyperemesis Food aversion Ordered: 08/18/2024 documented as of this encounter Visit Diagnoses Diagnosis Diffuse esophageal spasm- Primary Dyskinesia of esophagus Hyperemesis Persistent vomiting Food aversion Feeding difficulties and mismanagement documented in this encounter Care Teams Engineering Specialist Relationship Specialty Start Date End Date Joe Welch DO [address] [place] [id number] PCP - General Family Medicine 07/16/24 documented as of this encounter
--- OUTSIDE RECORDS SUMMARY | 2024-08-26 09:20 | XMS_ITS | Encounter Summary ---
Author Organization [facility] Address [address] [place] [address] Care Team Providers Care Supervisor Scrap Preparation Name Role Phone Raleigh Collazo MD Primary Care Provider [phone] Reason for Visit * Reason Comments Routine Visit Encounter Details Date Type Department Care Team (Latest Contact Info) Description 08/26/2024 9:20 AM EDT Routine [facility] [address] [id number] Uriel Meade, DO [address] [place], [facility]11 Well woman exam with routine gynecological exam; STD exposure; Second trimester ([facility]); 15 weeks gestation of ([facility]); Screening, , for anatomic survey ([facility]) Social History Tobacco Use Types Packs/Day Years Used Date Smoking Tobacco: Never Alcohol Use Standard Drinks/Week Comments Never 0 (1 standard drink = 0.6 oz pur e alcohol) caffeine: none B1300 Health Literacy Answer Date Recor ded How often do you need to hav e someone help you when you read instructions, pamphlets, or other written material from your doctor or pharmacy? Never 02/15/2024 Social Connection and Isolat ion Panel [NHANES] Answer Date Recorded In a typical week, how many times do you talk on the phone with family, friends, or neighbors? More than three times a week 02/15/2024 How often do you get togethe r with friends or relatives? Never 02/15/2024 How often do you attend [facility] or cheondoism services? Never 02/15/2024 Do you belong to any clubs o r organizations such as synagogue groups, unions, fraternal or athletic groups, or school groups? No 02/15/2024 How often do you attend meet ings of the clubs or organizations you belong to? Never 02/15/2024 Are you , , di vorced, , never , or living with a partner? 02/15/2024 AUDIT-C Answer Date Recorded Q1: How often do you have a drink containing alc ohol? Monthly or less 02/15/2024 Q2: How many drinks containi ng alcohol do you have on a typical day when you are drinking? 1 or 2 02/15/2024 Q3: How often do you have si x or more drinks on one occasion? Never 02/15/2024 Overall Financial Resource Strain (CARDIA) Answe r Date Recorded How hard is it for you to pa y for the very basics like food, housing, medical care, and heating? Not hard at all 02/15/2024 [facility] - Occupational Stress Questionnaire Answer Date Recorded Do you feel stress - tense, restless, nervous, or anxious, or unable to sleep at night because your mind is troubled all the time - these days? Very much 02/15/2024 Exercise Vital Sign Answer Date Recorde d On average, how many days pe r week do you engage in moderate to strenuous exercise (like a brisk walk)? 0 days 02/15/2024 On average, how many minutes do you engage in exercise at this level? 0 min 02/15/2024 Hunger Vital Sign Answer Date Recorded Within the past 12 months, y ou worried that your food would run out before you got the money to buy more. Never true 02/15/20 24 Within the past 12 months, t he food you bought just didn't last and you didn't have money to get more. Never true 02/15/2024 PRAPARE - Transportation Answer Date Re corded In the past 12 months, has l ack of transportation kept you from medical appointments or from getting medications? No 02/02 In the past 12 months, has l ack of transportation kept you from meetings, work, or from getting things needed for daily living? No 02/15/2024 Housing Stability Vital Sign Answer David e Recorded In the last 12 months, was t here a time when you were not able to pay the mortgage or rent on time? No 02/15/2024 In the past 12 months, how m any times have you moved where you were living? 0 02/15/2024 At any time in the past 12 [facility], were you homeless or living in a skilled nursing (including now)? No 02/15/2024 Estimated Date of Delivery Comme nts Yes 02/12/2025 Based on [employer] [facility] Sex and Gender Information Value Date Recorded Sex Assigned at Not on file Legal Sex Female 7:05 PM EDT Gender Identity Not on file Sexual Orientation Not on file documented as of this encounter Last Filed Vital Signs Vital Sign Reading Time Taken Comments Blood Pressure 120/74 08/26/2024 9:49 AM EDT Pulse - - Temperature - - Respiratory Rate - - Oxygen Saturation - - Inhaled Oxygen Concentration - - Weight 54.5 kg (120 lb 4 oz) 08/26/2024 9:49 AM EDT Height - - Body Mass Index 19.41 04/14/2024 2:48 PM EST documented in this encounter Progress Notes * Shari Gomez LPN - 08/26/2024 9:20 AM EDT Reason for Appointment: Patient ID: Sue Colón is a 28 y.o. female who presents for Routine Visit Patient presents today for Annual Exam., STD Check., and Return OB appointment. MEDICATIONS Current Outpatient Medications Medication Instructions budesonide-formoterol (Breyna) 80-4.5 MCG/ACT inhaler 2 puffs, Inhalation, Daily, Rinse mouth with water after use to reduce aftertaste and incidence of candidiasis. Do not swallow. cholecalciferol (VITAMIN D-3) 25 mcg, Oral, Daily fish oil concentrate 1 g, Oral, Daily OLANZapine (ZyPREXA) 2.5 MG tablet Nightly ondansetron (ZOFRAN) 8 mg, Every 8 hours PRN polyethylene glycol (PEG) 3350 (MIRALAX) 17 g, Daily Vit-Fe Fumarate-FA ( Vitamins) 28-0.8 MG tablet 1 tablet, Oral, Daily QUEtiapine (SEROQUEL) 50 mg, 2 times daily ALLERGIES Allergies Allergen Reactions Dust Mite Extract Unknown PROBLEMS Active Ambulatory Problems Diagnosis Date Noted Bipolar 1 disorder ([facility]) 11/13/2022 Anxiety 12/21/2022 Asthma (HCC) 12/21/2022 Attention deficit hyperactivity disorder (ADHD), combined type 12/21/2022 Proteinuria 08/03/2010 PTSD (post-traumatic stress disorder) 12/21/2022 Bipolar affective disorder, current episode hypomanic ([facility]) 12/21/2022 Well woman exam with routine gynecological exam 03/19/2023 Myalgia 02/18/2024 Fallopian tube disorder 03/13/2024 Anovulation 03/13/2024 Female infertility 03/13/2024 Resolved Ambulatory Problems Diagnosis Date Noted No Resolved Ambulatory Problems Past Medical History: Diagnosis Date Abnormal uterine bleeding (AUB) ADHD (attention deficit hyperactivity disorder) Amenorrhea Bilateral sacroiliitis Cervical cancer (HCC) Chronic fatigue Chronic rhinitis Chronic vaginitis Depression with anxiety Endometriosis Gynecological disorder History of medical problems Infertility counseling Low libido Miscarriage ([facility]) S/P laparoscopy Sciatica, unspecified side Seasonal allergic rhinitis, unspecified trigger Serous otitis media, unspecified chronicity, unspecified laterality URI (upper respiratory infection) 03/01/2019 HISTORY PAST MEDICAL HISTORY SOCIAL HISTORY Past Medical History: Diagnosis Date Abnormal uterine bleeding (AUB) ADHD (attention deficit hyperactivity disorder) Amenorrhea Bilateral sacroiliitis Cervical cancer (HCC) Chronic fatigue Chronic rhinitis Chronic vaginitis Depression with anxiety Depression/Anxiety Endometriosis Gynecological disorder History of medical problems Question of bipolar disorder Infertility counseling Low libido Miscarriage ([facility]) S/P laparoscopy Sciatica, unspecified side Seasonal allergic rhinitis, unspecified trigger Serous otitis media, unspecified chronicity, unspecified laterality URI (upper respiratory infection) 03/01/2019 [facility] Social History Tobacco Use Smoking [...] 03/2020 lap, D and C - at [facility] DILATION AND CURETTAGE OF UTERUS 03/07/2013 ; 08/13/2015 DILATION AND CURETTAGE OF UTERUS 10/27/2022 EGD 11/2023 HYSTEROSCOPY 06/12/2016 Laproscopy/hysterscopy REVIEW OF SYSTEMS Review of Systems: Review of Systems Constitutional: Negative. HENT: Negative. Eyes: Negative. Respiratory: Negative. Cardiovascular: Negative. Gastrointestinal: Negative. Genitourinary: Negative. Musculoskeletal: Negative. Skin: Negative. Neurological: Negative. All other systems reviewed and are negative. Hematological: Negative. Endocrine: Negative. Allergic/Immunologic: Negative. OBJECTIVE Objective: Physical Exam Constitutional: Appearance: Normal appearance. She is well-developed. Genitourinary: Vulva normal. Breasts: Breasts are soft. Right: Normal. Left: Normal. Cardiovascular: Rate and Rhythm: Normal rate and [...] nursing note reviewed. Exam conducted with a systems analyst present. Vitals: Estimated body mass index is 19.41 kg/m?? as calculated from the following: Height as of 04/14/24: 5' 6 . Weight as of this encounter: 120 lb 4 oz. BP: 120/74 No LMP recorded. Patient is . ASSESSMENT & PLAN ICD-10-CM 1. Well woman exam with routine gynecological exam Z01.419 Pap Smear 2. STD exposure Z20.2 SURESWAB(R) ADVANCED VAGINITIS PLUS, TMA CHLAMYDIA TRACHOMATIS (GENITO/STI) Neisseria gonorrhea DNA probe, direct 3. Second trimester ([facility]) Z34.92 Alpha fetoprotein, maternal Alpha fetoprotein, maternal 4. 15 weeks gestation of ([facility]) Z3A.15 POCT urinalysis dipstick manually resulted 5. Screening, , for anatomic survey ([facility]) Z36.89 CANCELED: US OB 14+ weeks anatomy scan CANCELED: US OB 14+ weeks anatomy scan Return OB/Annual Exam: Patient presents today for a annual exam/routine obstetrics appointment. Patient is currently [id number]. Patient states she is doing well but has complaints of nausea in the morning. Pap and cultures was obtained without difficulty and patient was given orders for msAFP to be obtained. Pt to remain off work for 4 weeks for hyperemesis. Orders Placed This Encounter Procedures Alpha fetoprotein, maternal CHLAMYDIA TRACHOMATIS (GENITO/STI) Neisseria gonorrhea DNA probe, direct POCT urinalysis dipstick manually resulted Follow Up: Patient is to schedule annual exam for next year and return to office in 4 weeks for OB appointment. Documented by Shari Gomez LPN on behalf of: Uriel Meade DO documented in this encounter Plan of Treatment Upcoming Encounters Date Type Department Care Team (Late st Contact Info) Description 09/25/2024 8:40 AM EDT Routine [facility] [address] [place] [phone] Uriel Meade DO [address] [place] [address] Scheduled Orders Name Type Priority Associated Diagnoses Orde r Schedule Alpha fetoprotein, maternal Lab Routine Second trimester ([facility]) Expected: 08/26/2024 (Approximate), Expires: 10/26/2024 Pap Smear Pathology and Cytology Routine Well woman exam with routine gynecological exam Ordered: 08/26/2024 SURESWAB(R) ADVANCED VAGINITIS PLUS, TMA Pathology and Cytology Routine STD exposure Ordered: 08/26/2024 CHLAMYDIA TRACHOMATIS (GENITO/STI) Lab Routine STD exposure Ordered: 08/26/2024 Neisseria gonorrhea DNA probe, direct Lab Routine STD exposure Ordered: 08/26/2024 documented as of this encounter Procedures Procedure Name Priority Date/Time Associated Diagnosis Comments POCT URINALYSIS DIPSTICK Routine 08/26/2024 9:55 AM EDT 15 weeks gestation of ([facility]) documented in this encounter Results * POCT urinalysis dipstick manually resulted (08/26/2024 9:55 AM EDT) Color, UA Yellow Clarity, UA Clear Glucose, UA Negative Negative - 2000(110) ++++ mg/dL Bilirubin, UA Negative Negative - 4(70) +++ mg/dL Ketones, UA Negative Negative - 160(16) ++++ mg/dL Spec Grav, UA 1.025 1 - 1.03 Blood, UA Negative Negative - 50 Mick/mcL pH, UA 6.0 5 - 9 Protein, UA Negative Negative - 2000(20) ++++ mg/dL Urobilinogen, UA 0.2 0.2 - 12 mg/dL Leukocytes, UA Negative Negative - 500+++ Campos/mcL Nitrite, UA Negative Negative - Positive Urine 08/26/2024 9:55 AM EDT Uriel Meade DO POINT OF CARE TEST ENTER/EDIT OR DERABLES Final Result documented in this encounter Visit Diagnoses Diagnosis Well woman exam with routine gynecological exam Routine gynecological examination STD exposure Second trimester ([facility]) state, incidental 15 weeks gestation of ([facility]) Screening, , for anatomic survey ([facility]) Encounter for anatomic survey documented in this encounter Care Teams Supervisor Scrap Preparation Relationship Specialty Start Date End Date Raleigh Collazo MD [address] [place] [address] PCP - General Family Medicine 08/28/22 documented as of this encounter
--- OUTSIDE RECORDS SUMMARY | 2024-08-26 12:41 | XMS_ITS | Encounter Summary ---
Author Organization [facility] Address [address] [place] [address] Care Team Providers Care Can Marker Name Role Phone Joe Zuleta DO Primary Care Provider [phone] Reason for Visit * Reason Onset Date Comments Chest Pain 08/13/2024 Encounter Details Date Type Department Care Team (Late st Contact Info) Description 08/13/[address] [facility] Care [address] [place] [address] Joe Zuleta DO [address] [place] [address] Chest Pain Social History Tobacco Use Types Packs/Day Years Used Date Smoking Tobacco: Never Smokeless Tobacco: Never Alcohol Use Standard Drinks/Week Comments Not Currently 0 (1 standard drink = 0.6 oz pur e alcohol) [facility] Utilities Answer Date Recorded In the past 12 months has e [employer], gas, oil, or water [employer] threatened to shut off services in your [...] any time in the past 12 m [facility], were you homeless or living in a [facility] (including now)? No 07/07/2024 Food Insecurity Answer [...] on file documented as of this encounter Plan of Treatment Not on file documented as of this encounter Visit Diagnoses Not on filedocumented in this encounter Care Teams Can Marker Relationship Specialty Start Date End Date oJe Zuleta DO [address] [place] [address] PCP - General Family Medicine 07/16/24 documented as of this encounter
--- OUTSIDE RECORDS SUMMARY | 2024-08-26 12:42 | XMS_ITS | Encounter Summary ---
Author Organization [facility] Address [address] [facility] [place] [address] Care Team Providers Care Needle Board Repairer Name Role Phone Raleigh Collazo MD Primary Care Provider [phone] Encounter Details Date Type Department Care Team (Late st Contact Info) Description 08/26/2024 Bamboo flowsheet [facility] OB [address] [facility] [place] [address] Uriel Meade DO [address] [facility] [address] [place] [place], [facility] Social History Tobacco Use Types Packs/Day Years [...] Never 02/15/2024 How often do you attend chur ch or orthodox services? Never 02/15/2024 Do you belong to any clubs o r organizations such as baptism groups, unions, fraternal or athletic groups, or [...] and heating? Not hard at all 02/15/2024 [facility] of Occupat ional Health - Occupational Stress [...] any time in the past 12 m [facility], were you homeless or living in a nursing home (including now)? No 02/15/2024 Estimated Date of Delivery Comme nts Yes 02/12/2025 Based on Interfa bridget RENO Sex and Gender Information Value Date Recorded Sex Assigned at Not on file Legal Sex Female 7:05 PM EDT Gender Identity Not on file Sexual Orientation Not on file documented as of this encounter Plan of Treatment Upcoming Encounters Date Type Department Care Team (Late st Contact Info) Description 09/25/2024 8:40 AM EDT Routine [facility] OB [address] [facility] [place] [address] Uriel Meade, [address] [facility] [place] [address] documented as of this encounter Visit Diagnoses Not on filedocumented in this encounter Care Teams Needle Board Repairer Relationship Specialty Start Date End Date Raleigh Collazo MD [address] [place] [address] PCP - General Family Medicine 08/28/22 documented as of this encounter
--- OUTSIDE RECORDS SUMMARY | 2024-08-26 12:42 | XMS_ITS | Encounter Summary ---
Author Organization [facility] Address [address] [facility] [place] [address] Care Team Providers Care Chief Of Hospital Medicine Name Role Phone Carolyne Edmonds MD Primary Care Provider [phone] Encounter Details Date Type Department Care Team (Late st Contact Info) Description 05/23/2023 Clinisync Result Encounter [facility] External Department Unsolicited Marzena Meade, DO [address] [place] [address] Social History Tobacco Use Types Packs/Day Years Used Date Smoking Tobacco: Never Alcohol Use Standard Drinks/Week Comments Never 0 (1 standard drink = 0.6 oz pur e alcohol) caffeine: none Comments No Sex and Gender Information Value Date Recorded Sex Assigned at Not on file Legal Sex Female 7:05 PM EDT Gender Identity Not on file Sexual Orientation Not on file documented as of this encounter Plan of Treatment Upcoming Encounters Date Type Department Care Team (Late st Contact Info) Description 09/25/2024 8:40 AM EDT Routine [facility] [address] [facility] [place] [address] Marzena Meade, DO [address] [place], [place] [address] documented as of this encounter Procedures Procedure Name Priority Date/Time Associated Diagnosis Comments US PELVIS W/ TRANSVAGINAL 05/23/2023 3:37 PM EDT [facility] PROLACTIN Routine 05/23/2023 2:55 PM EDT [facility] PREG QUANT HCG Routine 05/23/2023 2: 55 PM EDT ALL THYROID STIM HORMONE Routine 05/23/2023 2:55 PM EDT ALL CBC WITH AUTO DIFF Routine 05/23/2023 2:55 PM EDT documented in this encounter Results * US PELVIS W/ TRANSVAGINAL (05/23/2023 3:37 PM EDT) Anatomical Region Laterality Modality Other 05/23/2023 3:37 PM EDT Narrative 05/23/2023 3:39 [place] [address] Ultrasound Report Signed Patient: INDU ST MR#: [id number] : 1995 Acct:[id number] Age/Sex: 27 / F ADM Date: 05/23/23 Loc: US Attending Dr: Marzena Meade D.O. Ordering Physician: Marzena Meade D.O. Date of Service: 05/23/23 Procedure(s): US pelvis w/ transvaginal Accession Number(s): [id number] cc: CAROLYNE EDMONDS ; Marzena Meade D.O. [address] [address] Patient Name: INDU ST MRN: [facility]:[id number] date: 1995 Sex: F Assigned Patient Location: US Current Patient Location: US Accession/Order Number: [id number] Exam Date: 05/23/2023 14:30 Report Date: 05/23/2023 15:37 At the request of: MARZENA MEADE Procedure: US pelvis w/ transvaginal EXAMINATION: US pelvis w/ transvaginal HISTORY: Amenorrhea N91.2 COMPARISON: 09/25/2022 FINDINGS: Transabdominal and transvaginal images The uterus is normal in size, contour and myometrial echotexture measuring 8.3 x 3.9 x 4.9 cm. Anteverted. The endometrium measures 7 mm, normal. The right ovary measures 1.5 x 2.8 x 1.8 cm. Normal color and Doppler flow. The left ovary measures 3.2 x 4.1 x 2.9 cm. Normal color and Doppler flow. 2.5 x 2.3 x 1.9 cm area of heterogeneous echotexture with peripheral vascularity. Small amount of free pelvic fluid likely physiologic US/US pelvis w/ transvaginal IMPRESSION: 2.5 cm cystic lesion of the left ovary, consider collapsing functional cyst Electronically authenticated by: ROMY VIRGEN Date: 05/23/2023 15:37 Dictated By: Romy Virgen M.D. Signed By: 05/23/23 1539 DD/ 1537 TD/TT: Asphalt Tamping Machine Operator: Procedure Note Radiology, Radiologist, MD - 05/23/2023 [place] [address] Ultrasound Report Signed Patient: INDU ST LMR#: [id number] : 1995Acct:[id number] Age/Sex: 27 FADM Date: 05/23/23 Loc: US Attending Dr: Marzena Meade D.O. Ordering Physician: Marzena Meade D.O. Date of Service: 05/23/23 Procedure(s): US pelvis w/ transvaginal Accession Number(s): [id number] cc: CAROLYNE EDMONDS ; Marzena Meade D.O. The [place] [id number] Patient Name: INDU ST MRN: [id number] date: 1995 Sex: F Assigned Patient Location: US Current Patient Location: US Accession/Order Number: [id number] Exam Date: 05/23/2023 14:30 Report Date: 05/23/2023 15:37 At the request of: MARZENA MEADE Procedure: US pelvis w/ transvaginal EXAMINATION: US pelvis w/ transvaginal HISTORY: Amenorrhea N91.2 COMPARISON: 09/25/2022 FINDINGS: Transabdominal and transvaginal images The uterus is normal in size, contour and myometrial echotexture measuring8.3 x 3.9 x 4.9 cm. Anteverted. The endometrium measures 7 mm, normal. The right ovary measures 1.5 x 2.8 x 1.8 cm. Normal color and Dopplerflow. The left ovary measures 3.2 x 4.1 x 2.9 cm. Normal color and Doppler flow.2.5 x 2.3 x 1.9 cm area of heterogeneous echotexture with peripheralvascularity. Small amount of free pelvic fluid likely physiologic US/US pelvis w/ transvaginal IMPRESSION: 2.5 cm cystic lesion of the left ovary, consider collapsing functionalcyst Electronically authenticated by: ROMY VIRGEN Date: 05/23/2023 15:37 Dictated By: Romy Virgen M.D. Signed By:05/23/23 1539 DD/ 1537 TD/TT: Asphalt Tamping Machine Operator: us Marzena Halina DO [facility] Final Result * (ABNORMAL) TBH PROLACTIN (05/23/2023 2:55 PM EDT) PROLACTIN 104.0(A) 4.8 - 33.4 ng/mL TBH Comment: Performed at: [address] [id number] Field Services Manager: Don Tolentino PhD, Phone: [phone] 05/23/2023 2:55 PM EDT 05/23/2023 2:56 PM EDT Narrative [facility] - 05/25/2023 4:08 AM EDT us Marzena Halina DO [facility] Final Result [facility] * TBH PREG QUANT HCG (05/23/2023 2:55 PM EDT) HCG QUANTITATIVE <1 mIU/mL TBH Comment: 5-50 0.2-1 WEEK 50-500 1-2 WEEKS 100-5,000 2-3 WEEKS 500-10,000 3-4 WEEKS 1,000-50,000 4-5 WEEKS 10,000-100,000 5-6 WEEKS 15,000-200,000 6-8 WEEKS 10,000-100,000 2-3 MONTHS 05/23/2023 2:55 PM EDT 05/23/2023 2:56 PM EDT Narrative [facility] - 05/23/2023 5:01 PM EDT Generic External Data Provider [facility] F inal Result [facility] TB * ALL THYROID STIM HORMONE (05/23/2023 2:55 PM EDT) Pathologist [facility] THYROID STIMULATING HORMONE 2.036 0.358 - 3.740 uIU/mL TB 05/23/2023 2:55 PM EDT 05/23/2023 2:56 PM EDT Narrative [facility] - 05/23/2023 5:01 PM EDT Generic External Data Provider [facility] F inal Result Performing Organization Address City/[facility]/ZIP Co de Phone Number [facility] TB * (ABNORMAL) ALL CBC WITH AUTO DIFF (05/23/2023 2:55 PM EDT) Pathologist [facility] TB WBC 6.9 4.0 - 11.0 10 3/uL TBH TB RBC 4.29 4.20 - 5.40 10 6/uL TBH TB HGB 12.0 12.0 - 16.0 g/dL TB TB HCT 37.2 36.0 - 48.0 % TBH TB MCV 86.7 81.0 - 99.0 fL TB TB MCH 28.0 26.7 - 34.0 pg TBH TB MCHC 32.3 29.9 - 35.2 g/dL TB TB RDW 13.5 11.0 - 15.0 % TBH TBH PLT 296 150 - 450 10 3/uL TBH TB MPV 9.9 9.5 - 13.5 fL TBH NEUTROPHILS PERCENT AUTO 61.0 43.0 - 75.0 % TBH LYMPHOCYTES PERCENT AUTO 33.3 20.5 - 60.0 % TBH MONOCYTES PERCENT AUTO 5.1 1.7 - 12.0 % TBH TBH EO % 0.1(L) 0.9 - 7.0 % TBH BASOPHILS PERCENT AUTO 0.4 0.2 - 2.0 % TBH IMMATURE GRANULOCYTES PCT AUTO 0.1 0.0 - 0.5 % TBH NEUTROPHILS ABSOLUTE AUTO 4.2 1.4 - 6.5 10 3/uL TBH LYMPHOCYTES ABSOLUTE AUTO 2.3 1.2 - 3.8 10 3/uL TBH MONOCYTES ABSOLUTE AUTO 0.4 0.3 - 0.8 10 3/uL TBH TBH EO # 0.0 0.0 - 0.7 10 3/uL TBH BASOPHILS ABSOLUTE AUTO 0.0 0.0 - 0.1 10 3/uL TBH IMMATURE GRANULOCYTES ABS AUTO 0.01 0.00 - 0.03 10 3/uL [facility]H 05/23/2023 2:55 PM EDT 05/23/2023 2:56 PM EDT Narrative [facility] - 05/23/2023 4:35 PM EDT us Marzena Halina DO [facility] Final Result [facility] documented in this encounter Visit Diagnoses Not on filedocumented in this encounter Care Teams Chief Of Hospital Medicine Relationship Specialty Start Date End Date Carolyne Edmonds MD [address] [place] [address] PCP - General Family Medicine 08/28/22 documented as of this encounter
--- OUTSIDE RECORDS SUMMARY | 2024-08-26 12:42 | XMS_ITS | Clinical Summary ---
Author Organization [place] [facility] Address [id number] [address] [place] [address] Care Team Providers Care Dumpman Name Role Phone Unavailable Primary Care Provider Unavailabl e Allergies Active Allergy Reactions Criticality Noted Date Comments House Dust Mite 08/18/2024 Medications cholecalciferol 1,000 units tablet Take 1 tablet (1,000 Units total) by mouth in the morning. Active busPIRone (BUSPAR) 5 mg tablet Take 1 tablet (5 mg total) by mouth 3 (three) times a day. Active sucralfate (CARAFATE) 100 mg/mL suspension Take 10 mL (1,000 mg total) by mouth in the morning and 10 mL (1,000 mg total) at noon and 10 mL (1,000 mg total) in the evening and 10 mL (1,000 mg total) before bedtime. Active ondansetron (ZOFRAN) 4 mg tablet Take 1 tablet (4 mg total) by mouth every 8 (eight) hours as needed for nausea or vomiting. Active ARIPiprazole (ABILIFY) 5 mg tablet Take 1 tablet (5 mg total) by mouth in the morning. Active VIT 85-RGHP-[id number]-D HERNANDES ORAL Take by mouth. Active omega-3 acid ethyl esters (LOVAZA) 1 gram capsule Take 2 capsules (2 g total) by mouth in the morning and 2 capsules (2 g total) before bedtime. Active budesonide-form oteroL (SYMBICORT) 80-4.5 mcg/actuation inhaler Inhale 2 puffs in the morning and 2 puffs before bedtime. Active Encounters Date Type Department Care Team Description 08/18/2024 Orders Only Maternal- Medicine at [facility] [address] [place] [phone] Ref Prov, Not In System 08/18/2024 Abstract Maternal- Medicine at [facility] [address] [place] [phone] Jacquelin Yung MD from Last 3 Months Family History Medical History Relation Name Comments Arthritis Father Lung cancer Father Heart disease Maternal Grandfather Hypertension Maternal Grandfather Stroke Maternal Grandfather Cancer Maternal Grandmother Hypertension Maternal Grandmother ADD / ADHD Mother Hypothyroidism Mother Lung cancer Mother Cervical cancer Paternal Grandmother Clotting disorder Paternal Grandmother Hypertension Paternal Grandmother Relation Name Status Comments Father Maternal Grandfather Maternal Grandmother Mother Paternal Grandmother Social History Tobacco Use Types Packs/Day Years Used Date Smoking Tobacco: Never Smokeless Tobacco: Never Tobacco Cessation:Counseling Given: Not Answered Alcohol Use Standard Drinks/Week Comments Not Currently 0 (1 standard drink = 0.6 oz pur e alcohol) Childcare Answer Date Recorded Childcare Unknown 08/12/2018 Employment Answer Date Recorded Employment Unknown 08/12/2018 Estimated Date of Delivery Comme nts Yes 02/13/2025 Based on Embryo Transfer Sex and Gender Information Value Date Recorded Sex Assigned at Not on file Legal Sex Female 12:00 PM EDT Gender Identity Not on file Sexual Orientation Not on file Plan of Treatment Upcoming Encounters Date Type Department Care Team (Late st Contact Info) Description 09/02/2024 7:30 AM EDT Appointment [facility] US Imaging [address] [place] [address] 09/02/2024 8:45 AM EDT Office Visit Maternal- Medicine at [facility] [address] [place] [phone] Jacquelin Yung MD [address] [address] Health Maintenance Due Date Last Done Comments Depression Screening 2006 Adult BMI Screening 2012 Pap Smear 08/30/2015 DTaP,Tdap and Td Vaccines (3 - Td or Tdap) 05/29/2018 05/29/2008, 06/08/1999 Influenza Vaccine 11/03/2024 12/06/2015, 12/31/2012 Tobacco Screening 08/18/2025 08/18/2024 Medical Devices Not on file Procedures Procedure Name Priority Date/Time Associated Diagnosis Comments US PREG LMTD 1 OR MORE FETUS Routine 08/18/2024 2:59 PM EDT US PREG LMTD 1 OR MORE FETUS Routine 08/18/2024 2:58 PM EDT UNLISTED LAB TEST Routine 08/18/2024 2:57 PM EDT from Last 3 Months Results * Ultrasound limited 1 or more fetus (08/18/2024 2:59 PM EDT) Only the most recent of2 resultswithin the time period is included. Anatomical Region Laterality Modality OB-FACULTY DEAN Ultrasound us Not In System Ref Prov IMG US ORDERABLES Final R esult * Unlisted Lab Test (08/18/2024 2:57 PM EDT) us Not In System Ref Prov LAB BLOOD ORDERABLES Daniella l Result MANUALLY TRANSCRIBED RESULTS from Last 3 Months Insurance [facility]
--- OUTSIDE RECORDS SUMMARY | 2024-08-26 12:42 | XMS_ITS | Encounter Summary ---
Author Organization [facility] [employer] [facility] Address [facility]-[id number] [address] [place] [address] Care Team Providers Care Cash Applications Specialist Name Role Phone Unavailable Primary Care Provider Unavailabl e Encounter Details Date Type Department Care Team (Late Contact Info) Description 08/18/2024 Orders Only Maternal- Medicine at [facility] [address] [place] [phone] Ref Prov, [place] [address] Social History Tobacco Use Types Packs/Day Years [...] Info) Description 09/02/2024 7:30 AM EDT Appointment [facility] US Imaging [address] [place] [address] 09/02/2024 8:45 AM EDT Office Visit Maternal- Medicine at [facility] [address] [place] [address] Jacquelin Yung MD [address] [facility], [address] [place] [address] documented as of this encounter Procedures Procedure Name Priority Date/Time Associated Diagnosis Comments US PREG LMTD 1 OR MORE FETUS Routine 08/18/2024 2:59 PM EDT US PREG LMTD 1 OR MORE FETUS Routine 08/18/2024 2:58 PM EDT UNLISTED LAB TEST Routine 08/18/2024 2:57 PM EDT documented in this encounter Results * Ultrasound limited 1 or more fetus (08/18/2024 2:59 PM EDT) Anatomical Region Laterality Modality OB-RN ENDOCRINOLOGY Ultrasound us Not In System Ref Prov IMG US ORDERABLES Final R esult * Ultrasound limited 1 or more fetus (08/18/2024 2:58 PM EDT) Anatomical Region Laterality Modality OB-RN ENDOCRINOLOGY Ultrasound us Not In System Ref Prov IMG US ORDERABLES Final R esult * Unlisted Lab Test (08/18/2024 2:57 PM EDT) us Not In System Ref Prov LAB BLOOD ORDERABLES Daniella toth Result MANUALLY TRANSCRIBED RESULTS documented in this encounter Visit Diagnoses Not on filedocumented in this encounter
--- OUTSIDE RECORDS SUMMARY | 2024-08-26 12:42 | XMS_ITS | Encounter Summary ---
Author Organization [facility] Address [address] [place] [address] Care Team Providers Care Float Builder Name Role Phone Carolyne Edmonds MD Primary Care Provider [phone] Encounter Details Date Type Department Care Team (Late st Contact Info) Description 08/04/2023 Clinisync Result Encounter [facility] External Department Unsolicited Provider, Generic External Data Social History Tobacco Use Types Packs/Day Years [...] Description 09/25/2024 8:40 AM EDT Routine [facility] OB [address] [place] [address] Uriel Meade, [address] [facility] [place] [address] documented as of this encounter Procedures Procedure Name Priority Date/Time Associated Diagnosis Comments MR PITUITARY W AND WO IV CONTRAST 08/04/2023 11:20 PM EDT documented in this encounter Results * MR BRAIN PITUITARY W & WO CONTRAST (08/04/2023 11:20 PM EDT) Anatomical Region Laterality Modality Head, Neck Magnetic Resonan ce 08/04/2023 11:2 0 PM EDT Narrative 08/04/2023 11:23 PM EDT [address] [address] Magnetic Resonance Report Signed Patient: INDU ST MR#: [id number] : 1995 Acct:[id number] Age/Sex: 27 / F ADM Date: 08/02/23 Loc: MRI Attending Dr: Non-Staff Physician Alda Ordering Physician: PhysicianPalmira M.D. Date of Service: 08/02/23 Procedure(s): MR pituitary wo/w con Accession Number(s): [id number] cc: CAROLYNE EDMONDS ; PhysicianPalmira M.D. [place] [address] Patient Name: INDU ST MRN: [id number] date: 1995 Sex: F Assigned Patient Location: MRI Current Patient Location: Accession/Order Number: [id number] Exam Date: 08/02/2023 14:35 Report Date: 08/04/2023 23:20 At the request of: NON-STAFF PHYSICIAN Procedure: MR pituitary wo/w con EXAM: MR pituitary wo/w con HISTORY: Pituitary Disorder E23.7 COMPARISON: MRI brain 05/28/2023. TECHNIQUE: Multiplanar multisequence MRI of the brain with high-resolution thin section dynamic sequences through the pituitary both before and after intravenous administration of 10 mL gadolinium contrast. FINDINGS: There is a 2.5 mm focus of hypoenhancement in the left side of the pituitary. The pituitary is otherwise normal in size. The superior surface of the pituitary is flat. The pituitary infundibulum, optic chiasm and cavernous sinuses are normal in appearance. The brain is otherwise normal in appearance. The ventricles, cisterns and parenchyma are within normal limits. There is no evidence of mass effect, shift, hemorrhage, extra-axial collection, abnormal T2 prolongation, restricted diffusion or pathologic enhancement.. Orbits and contents, sinuses, nasopharynx, midline structures, temporal bones and contents, mastoid air cells, vascular structures, craniocervical junction, skull and scalp are within normal limits. MR/MR pituitary wo/w con IMPRESSION: 2.5 mm focus of hypoenhancement in the left side of the pituitary gland is consistent with a pituitary microadenoma. The study is otherwise within normal limits. Electronically authenticated by: RACHELLE RUBI Date: 08/04/2023 23:20 Dictated By: RACHELLE RUBI M.D. Signed By: 08/04/232322 DD/ 19 TD/TT: Device Sales Consultant: Procedure Note Radiology, Radiologist, MD - 08/04/2023 [place] [address] Magnetic Resonance Report Signed Patient: INDU ST LMR#: [id number] : 1995Acct:[id number] Age/Sex: 27 FADM Date: 08/02/23 Loc: MRI Attending Dr: Non-Staff Physician Alda Ordering Physician: PhysicianNonIzaStaff Alda Date of Service: 08/02/23 Procedure(s): MR pituitary wo/w con Accession Number(s): [id number] cc: CAROLYNE EDMONDS ; Physician,DaciaStaff Alda The [place] [address] Patient Name: INDU ST MRN: [id number] date: 1995 Sex: F Assigned Patient Location: MRI Current Patient Location: Accession/Order Number: [id number] Exam Date: 08/02/2023 14:35 Report Date: 08/04/2023 23:20 At the request of: NON-STAFF PHYSICIAN Procedure: MR pituitary wo/w con EXAM: MR pituitary wo/w con HISTORY: Pituitary Disorder E23.7 COMPARISON: MRI brain 05/28/2023. TECHNIQUE: Multiplanar multisequence MRI of the brain with high-resolution thin section dynamic sequences through the pituitary both before and after intravenous administration of 10 mL gadolinium contrast. FINDINGS: There is a 2.5 mm focus of hypoenhancement in the left side of thepituitary. The pituitary is otherwise normal in size. The superior surface of the pituitary is flat. The pituitary infundibulum, optic chiasm and cavernous sinuses are normal in appearance. The brain is otherwise normal in appearance. The ventricles, cisterns and parenchyma are within normal limits. There is no evidence of mass effect, shift, hemorrhage, extra-axial collection, abnormal T2 prolongation, restricted diffusion or pathologic enhancement.. Orbits and contents, sinuses, nasopharynx, midline structures, temporalbones and contents, mastoid air cells, vascular structures, craniocervicaljunction, skull and scalp are within normal limits. MR/MR pituitary wo/w con IMPRESSION: 2.5 mm focus of hypoenhancement in the left side of the pituitary gland is consistent with a pituitary microadenoma. The study is otherwise within normal limits. Electronically authenticated by: RACHELLE RUBI Date: 08/04/2023 23:20 Dictated By: RACHELLE RUBI M.D. Signed By:08/04/232322 DD/ 19 TD/TT: Device Sales Consultant: us Generic External Data Provider IMG MRI PROCEDURE S Final Result documented in this encounter Visit Diagnoses Not on filedocumented in this encounter Care Teams Float Builder Relationship Specialty Start Date End Date Carolyne Edmonds MD [address] [place] [address] PCP - General Family Medicine 08/28/22 documented as of this encounter
--- OUTSIDE RECORDS SUMMARY | 2024-08-26 12:42 | XMS_ITS | Encounter Summary ---
Author Organization [facility] Address [address] [place] [address] Care Team Providers Care Restaurant Assistant Manager Name Role Phone Raleigh Collazo MD Primary Care Provider [phone] Encounter Details Date Type Department Care Team (Late st Contact Info) Description 06/19/2024 Abstract [facility] BCP OB [address] [facility] [place] [address] Uriel Meade, DO [address] [facility] [address] [place], [place] [phone] Social History Tobacco Use Types Packs/Day Years [...] often do you attend chur ch or latter day services? Never 02/15/2024 Do you belong to any clubs o r organizations such as yarsanism groups, unions, fraternal or athletic groups, or [...] and heating? Not hard at all 02/15/2024 [facility] [place] of Occupat ional Health - Occupational Stress [...] any time in the past 12 m [facility], were you homeless or living in a care home (including now)? No 02/15/2024 Comments No Sex and Gender Information Value Date Recorded Sex Assigned at Not on file Legal Sex Female 7:05 PM EDT Gender Identity Not on file Sexual Orientation Not on file documented as of this encounter Plan of Treatment Upcoming Encounters Date Type Department Care Team (Late st Contact Info) Description 09/25/2024 8:40 AM EDT Routine [facility] BCP OB [address] [place] [phone] Uriel Meade, DO [address] [facility] [address] [place], [place] [phone] documented as of this encounter Visit Diagnoses Not on filedocumented in this encounter Care Teams Restaurant Assistant Manager Relationship Specialty Start Date End Date Raleigh Collazo MD [address] [place] [address] PCP - General Family Medicine 08/28/22 documented as of this encounter
--- OUTSIDE RECORDS SUMMARY | 2024-08-26 12:42 | XMS_ITS | Encounter Summary ---
Author Organization [facility] Address [address] [place] [address] Care Team Providers Care Environmental Compliance Engineer Name Role Phone Raleigh Collazo MD Primary Care Provider [phone] Encounter Details Date Type Department Care Team (Late st Contact Info) Description 06/24/2024 Abstract [facility] OB [address] [facility] [place] [place] [address] Akua Streeter LPN Social History Tobacco Use Types Packs/Day Years [...] often do you attend chur ch or protestant services? Never 02/15/2024 Do you belong to any clubs o r organizations such as restorationism groups, unions, fraternal or athletic groups, or [...] and heating? Not hard at all 02/15/2024 [facility] of Occupat ional Health - Occupational Stress [...] any time in the past 12 m [facility], were you homeless or living in a intermediate (including now)? No 02/15/2024 Comments Unknown Sex and Gender Information Value Date Recorded Sex Assigned at Not on file Legal Sex Female 7:05 PM EDT Gender Identity Not on file Sexual Orientation Not on file documented as of this encounter Plan of Treatment Upcoming Encounters Date Type Department Care Team (Late st Contact Info) Description 09/25/2024 8:40 AM EDT Routine [facility] OB [address] [facility] [place] [phone] Uriel Meade DO [address] [facility] [place] [address] documented as of this encounter Visit Diagnoses Not on filedocumented in this encounter Care Teams Environmental Compliance Engineer Relationship Specialty Start Date End Date Raleigh Collazo MD [address] [place] [address] PCP - General Family Medicine 08/28/22 documented as of this encounter
--- OUTSIDE RECORDS SUMMARY | 2024-08-26 12:42 | XMS_ITS | Encounter Summary ---
Author Organization [facility] Address [address] [place] [address] Care Team Providers Care Music Intern Name Role Phone Raleigh Collazo MD Primary Care Provider Encounter Details Date Type Department Care Team (Late st Contact Info) Description 08/14/2024 Telephone [facility] OB [address] [facility] [place] [address] Akua Streeter LPN Social History Tobacco [...] often do you attend chur ch or samaritan services? Never 02/15/2024 Do you belong to any clubs o r organizations such as religion groups, unions, fraternal [...] and heating? Not hard at all 02/15/2024 [facility] of Occupat ional Health - Occupational Stress [...] any time in the past 12 m [facility], were you homeless or living in a long term (including now)? No 02/15/2024 Estimated Date of Delivery Comme nts Yes 02/12/2025 Based on Interfa bridget RENO Sex and Gender Information Value Date Recorded Sex Assigned at Not on file Legal Sex Female 7:05 PM EDT Gender Identity Not on file Sexual Orientation Not on file documented as of this encounter Miscellaneous Notes * Telephone Encounter - Akua Streeter LPN - 08/14/2024 9:55 AM EDT Provider called patient as patient has been in so much pain and nausea and was thinking of terminating . Discussed with patient in regards for Dr. Zuleta and pain medication. Provider has a call out to Dr. Zuleta. Patient had gone to ER due to chest pain as well. Patient is scheduled with [facility] in September and office will reach out to MFM to see if they can get her a sooner appointment. Patient is currently in-patient at [facility]. [facility] was given Dilaudid. Will reach out to patient with any updates as to plan of care. --Akua Wilhelm LPN 08/15/24 Called [facility] and LMOM that stat referral was going to be sent to them. Sent referral to [facility] and saw in CareEverywhere that patient is currently admitted to [facility]. --ANN Sinha documented in this encounter Plan of Treatment Upcoming Encounters Date Type Department Care Team (Late st Contact Info) Description 09/25/2024 8:40 AM EDT Routine [facility] OB [address] [place] [address] Uriel Meade, [address] [place] [address] documented as of this encounter Visit Diagnoses Not on filedocumented in this encounter Care Teams Music Intern Relationship Specialty Start Date End Date Raleigh Collazo MD [address] [place] [address] PCP - General Family Medicine 08/28/22 documented as of this encounter
--- OUTSIDE RECORDS SUMMARY | 2024-08-26 12:42 | XMS_ITS | Encounter Summary ---
Author Organization [facility] Address [address] [facility] [place] [address] Care Team Providers Care Microfilm Machine Operator Name Role Phone Raleigh Collazo MD Primary Care Provider [phone] Encounter Details Date Type Department Care Team ([facility] Contact Info) Description 09/06/2022 Abstract [facility] OB [address] [place] [address] Uriel Meade DO [facility] [address] [place], [place] [id number] Social History Tobacco Use Types Packs/Day Years Used Date Smoking Tobacco: Never Tobacco Cessation:Counseling Given: Not Answered Alcohol Use Standard Drinks/Week Comments Never 0 [...] Encounters Date Type Department Care Team (Late Contact Info) Description 09/25/2024 8:40 AM EDT Routine [facility] OB [address] [place] [address] Uriel Meade DO [facility] [address], [place] [id number] documented as of this encounter Visit Diagnoses Not on filedocumented in this encounter Care Teams Microfilm Machine Operator Relationship Specialty Start Date End Date Raleigh Collazo MD [address] [place] [address] PCP - General Family Medicine 08/28/22 documented as of this encounter
--- OUTSIDE RECORDS SUMMARY | 2024-08-26 12:42 | XMS_ITS | Encounter Summary ---
Author Organization [facility] Address [address] [place] [address] Care Team Providers Care Machine Operators Name Role Phone Raleigh Collazo MD Primary Care Provider Encounter Details Date Type Department Care Team (Late st Contact Info) Description 08/19/2024 Patient Outreach [facility] [address] [place] [id number] Dary Anderson LPN [address], [place] [id number] Social History Tobacco Use Types Packs/Day Years [...] often do you attend chur ch or jainism services? Never 02/15/2024 Do you belong to any clubs o r organizations such as buddhism groups, unions, fraternal or athletic groups, or [...] and heating? Not hard at all 02/15/2024 [facility] [place] of Occupat ional Health - Occupational Stress [...] any time in the past [address] [facility], were you homeless or living in a chcf (including now)? No 02/15/2024 Estimated Date of Delivery Comme nts Yes 02/12/2025 Based on Interfa bridget RENO Sex and Gender Information Value Date Recorded Sex Assigned at Not on file Legal Sex Female 7:05 PM EDT Gender Identity Not on file Sexual Orientation Not on file documented as of this encounter Progress Notes * Dary Anderson LPN - 08/19/2024 9:15 AM EDT Flowsheet Row Patient Outreach from 08/19/2024 in [facility] with Dary Anderson LPN Hospital Information ED, Hospital or Custodial Facility Discharge? Hospital Patient has been contacted within two business days of discharge Yes Diagnosis Nausea, vomiting and chest pain unspecified Discharge Date 08/15/24 Discharged To: Home Setting [facility] Engagement Call Start Time 0910 Admission Date 08/14/24 Medications Discharge medications reviewed and reconciled from hospital? Yes Is the patient having any side effects they believe may be caused by any medication additions or changes? No Does the patient have all medications ordered at discharge? Yes Nursing Interventions No intervention needed Is the patient taking all medications as directed (includes completed medication regime)? Yes Nursing Interventions Nurse provided patient education Appointments Does the patient have a primary care provider? Yes Does the patient have any upcoming specialty appointments? Yes Nursing Interventions Advised patient to keep appointment Self Management Patient Teaching Does the patient have access to their discharge instructions? Yes Nursing Interventions Reviewed instructions with patient What is the patient's perception of their health status since discharge? Improving Is the patient/caregiver able to teach back the hierarchy of who to call/visit for symptoms/problems? PCP, Specialist, Home Health nurse, Urgent Care, ED, 911 Yes Wrap Up Call End Time 0920 AKBAR Complete. Call to pt. Pt reports she is taking Zofran for nausea and vomiting and its slightly improving symptoms. Pt reports chest pain persists but she is functional and at work. Pt taking Miralax for constipation. Meds reconciled. Next OB OV 08/26/24, MFM 09/02/24 documented in this encounter Plan of Treatment Upcoming Encounters Date Type Department Care Team (Late st Contact Info) Description 09/25/2024 8:40 AM EDT Routine [facility] OB [address] [facility] [address] Uriel Meade, [address] [facility] [place] [address] documented as of this encounter Visit Diagnoses Diagnosis Nausea and vomiting, unspecified vomiting type- Primary Chest pain, unspecified type documented in this encounter Care Teams Machine Operators Relationship Specialty Start Date End Date Raleigh Collazo MD [address] [place] [address] PCP - General Family Medicine 08/28/22 documented as of this encounter
--- OUTSIDE RECORDS SUMMARY | 2024-08-26 12:42 | XMS_ITS ---
Author Organization [facility] Address [address] [place] [address] Care Team Providers Care Freelance Patternmaker Name Role Phone Raleigh Collazo MD Primary Care Provider [phone] Inpatient Discharge Transitional Care Management (TCM) Status:Closed (Closed) Start date:08/15/2024 Enrollment date:08/18/2024 Enrollment reason:Identified using hospital discharge data End date:08/19/2024 Close reason:Not eligible Overview Patient discharged from [facility] on 08/15. Please contactfor hospital AKBAR and schedule follow-up appointment within 7-14 days. Continued Care and Services Coordination
--- OUTSIDE RECORDS SUMMARY | 2024-08-26 12:42 | XMS_ITS | Encounter Summary ---
Author Organization [facility] Address [address] [facility] [place] [address] Care Team Providers Care Investigator Cash Shortage Name Role Phone Raleigh Collazo MD Primary Care Provider [phone] Encounter Details Date Type Department Care Team (Late Contact Info) Description 10/09/2022 Abstract [facility] B[facility] OB [address] [place] [address] [facility] [place], [facility] Social History Tobacco Use Types Packs/Day Years [...] Routine [facility] OB [address] [place] [address] Uriel Meade DO [address] [place] [address] documented as of this encounter Visit Diagnoses Not on filedocumented in this encounter Care Teams Investigator Cash Shortage Relationship Specialty Start Date End Date Raleigh Collazo MD [address] [place] [address] PCP - General Family Medicine 08/28/22 documented as of this encounter
--- OUTSIDE RECORDS SUMMARY | 2024-08-26 12:42 | XMS_ITS | Encounter Summary ---
Author Organization [facility] Address [address] [place] [address] Care Team Providers Care Supervisor Pastry Name Role Phone Raleigh Collazo MD Primary Care Provider [phone] Encounter Details Date Type Department Care Team (Late st Contact Info) Description 07/02/2024 Orders Only [facility] BCP OB [address] [facility] [place] [address] Akua Streeter LPN Subchorionic hematoma in first trimester, single or unspecified fetus ([facility]); Nausea and vomiting, unspecified vomiting type; Hyperemesis of ([facility]) Social History Tobacco Use Types Packs/Day Years [...] often do you attend chur ch or holiness services? Never 02/15/2024 Do you belong to any clubs o r organizations such as mormon groups, unions, fraternal or athletic groups, or [...] and heating? Not hard at all 02/15/2024 [facility] of Occupat ional Health - Occupational Stress [...] were you homeless or living in a correction (including now)? No 02/15/2024 Comments Unknown Sex [...] AM EDT Routine [facility] OB [address] [facility] [place] [address] Uriel Meade, DO [address] [place] [address] [place] [address] documented as of this encounter Results * US OB transvaginal (07/08/2024 3:13 PM EDT) Anatomical Region Laterality Modality Body Ultrasound 07/09/2024 8:45 AM EDT Narrative 07/09/2024 8:45 AM EDT EXAM: US OB TRANSVAGINAL HISTORY: Follow up subchorionic hemorrhage. IVF. A1. RENO 02/12/2025. COMPARISON: U/S Ob 06/30/2024 TECHNIQUE: Two-dimensional transvaginal grayscale, color and spectral Doppler ultrasound imaging of the pelvis was performed. FINDINGS: The uterus demonstrates a normal homogeneous echotexture. The cervical os is closed. The right ovary measures 3.7 x 2.1 x 3.6 cm and demonstrates a corpus luteal cyst. There is normal color and spectral Doppler flow. The left ovary is not identified. No fluid is present within the cul-de-sac. There is a single, live intrauterine gestation identified with a heart rate of 184 beats per minute and a crown-rump length measurement of 2.1 cm, correlating to a gestational age of 8 weeks 5 days (+/- 5 days). There is a 2.0 x 0.4 x 1.5 cm subchorionic hemorrhage visualized. A yolk sac is visualized. IMPRESSION: 1. Single, live intrauterine gestation 8 weeks, 5 days by LMP. Today's ultrasound measurements correlate with a gestational age of 8 weeks 5 days (+/- 5 days). 2. Small subchorionic hemorrhage, decreased in size when compared to the prior study.. 3. Right ovarian corpus luteal cyst. 4. Normal color and spectral Doppler evaluation of the right ovary. The left ovary is not identified. Interpreted by: Electronically signed by SAUNDRA MARIE II, MD, PHD at 09-Jul-2024 08:43:53 AM [facility] Procedure Note Saundra Marie MD - 07/09/2024 EXAM: US OB TRANSVAGINAL HISTORY: Follow up subchorionic hemorrhage. IVF. A1. EDD104/15/2024. COMPARISON: U/S Ob 06/30/2024 TECHNIQUE: Two-dimensional transvaginal grayscale, color and spectralDoppler ultrasound imaging of the pelvis was performed. FINDINGS: The uterus demonstrates a normal homogeneous echotexture. The cervical osis closed. The right ovary measures 3.7 x 2.1 x 3.6 cm and demonstrates a corpusluteal cyst. There is normal color and spectral Doppler flow. The left ovary is not identified. No fluid is present within the cul-de-sac. There is a single, live intrauterine gestation identified with a fetalheart rate of 184 beats per minute and a crown-rump length measurement of2.1 cm, correlating to a gestational age of 8 weeks 5 days (+/- 5 days).There is a 2.0 x 0.4 x 1.5 cm subchorionic hemorrhage visualized. A yolksac is visualized. IMPRESSION: 1. Single, live intrauterine gestation 8 weeks, 5 days by LMP. Today'sultrasound measurements correlate with a gestational age of 8 weeks 5days (+/- 5 days). 2. Small subchorionic hemorrhage, decreased in size when compared to theprior study.. 3. Right ovarian corpus luteal cyst. 4. Normal color and spectral Doppler evaluation of the right ovary. Theleft ovary is not identified. Interpreted by: Electronically signed by SAUNDRA MARIE II, MD, PHD [id number] 08:43:53 AM [facility] us Uriel Meade DO [facility] OB US PROCEDURES Final Resul t documented in this encounter Visit Diagnoses Diagnosis Subchorionic hematoma in first trimester, single or unspecified fetus ([facility]) Nausea and vomiting, unspecified vomiting type Hyperemesis of ([facility]) Mild hyperemesis gravidarum, unspecified as to episode of care Subchorionic hematoma in first trimester, single or unspecified fetus ([facility]) Hyperemesis of ([facility]) Mild hyperemesis gravidarum, unspecified as to episode of care documented in this encounter Care Teams Supervisor Pastry Relationship Specialty Start Date End Date Raleigh Collazo MD [address] [place] [address] PCP - General Family Medicine 08/28/22 documented as of this encounter
--- OUTSIDE RECORDS SUMMARY | 2024-08-26 12:42 | XMS_ITS | Encounter Summary ---
Author Organization [facility] Address [address] [place] [address] Care Team Providers Care Finance Teacher Name Role Phone Raleigh Collazo MD Primary Care Provider [phone] Encounter Details Date Type Department Care Team (Late st Contact Info) Description 08/18/2024 Abstract [facility] OB [address] [facility] [place] [address] Uriel Meade, DO [address] [facility] [address] [place], [place] [id number] Social History Tobacco Use Types Packs/Day Years [...] often do you attend chur ch or anabaptist services? Never 02/15/2024 Do you belong to any clubs o r organizations such as anabaptist groups, unions, fraternal or athletic groups, or [...] and heating? Not hard at all 02/15/2024 [facility] [place] of Occupat ional Health - Occupational Stress [...] any time in the past 12 m [facility], were you homeless or living in a snf (including now)? No 02/15/2024 Estimated Date of [...] AM EDT Routine [facility] B[facility] OB [address] [facility] [place] [address] Uriel Meade, DO [address] [facility] [place] [address] documented as of this encounter Visit Diagnoses Not on filedocumented in this encounter Care Teams Finance Teacher Relationship Specialty Start Date End Date Raleigh Collazo MD [address] [place] [address] PCP - General Family Medicine 08/28/22 documented as of this encounter
--- OUTSIDE RECORDS SUMMARY | 2024-08-26 12:42 | XMS_ITS | Encounter Summary ---
Author Organization [facility] Address [address] [place] [address] Care Team Providers Care Repair Weaver Name Role Phone Raleigh Collazo MD Primary Care Provider [phone] Encounter Details Date Type Department Care Team (Late st Contact Info) Description 07/21/2024 Abstract [facility] OB [address] [facility] [place] [address] Uriel Meade, DO [address] [facility] [address] [place], [place] [address] Social History Tobacco Use Types Packs/Day Years [...] often do you attend chur ch or congregational services? Never 02/15/2024 Do you belong to any clubs o r organizations such as catholic groups, unions, fraternal or athletic groups, or [...] and heating? Not hard at all 02/15/2024 [facility] [place] of Occupat ional Health - Occupational Stress [...] any time in the past 12 m [facility], were you homeless or living in a mcc (including now)? No 02/15/2024 Estimated Date of [...] AM EDT Routine [facility] BCP OB [address] [facility] [place] [address] Uriel Meade, DO [address] [facility] [place] [address] documented as of this encounter Visit Diagnoses Not on filedocumented in this encounter Care Teams Repair Weaver Relationship Specialty Start Date End Date Raleigh Collazo MD [address] [place] [address] PCP - General Family Medicine 08/28/22 documented as of this encounter
--- OUTSIDE RECORDS SUMMARY | 2024-08-26 12:42 | XMS_ITS | Encounter Summary ---
Author Organization [facility] Address [address] [place] [address] Care Team Providers Care Healthcare Technician Name Role Phone Raleigh Collazo MD Primary Care Provider [phone] Encounter Details Date Type Department Care Team (Late st Contact Info) Description 08/18/2024 Abstract [facility] OB [address] [facility] [place] [address] Uriel Meade, DO [address] [facility] [address] [place], [place] [id number] Social History Tobacco Use Types Packs/Day Years [...] often do you attend chur ch or hindu services? Never 02/15/2024 Do you belong to any clubs o r organizations such as christian groups, unions, fraternal or athletic groups, or [...] and heating? Not hard at all 02/15/2024 [facility] [place] of Occupat ional Health - Occupational Stress [...] any time in the past 12 m [facility], were you homeless or living in a care home (including now)? No 02/15/2024 Estimated Date [...] Routine [facility] BCP OB [address] [facility] [place] [address] Uriel Meade, DO [address] [facility] [place] [address] documented as of this encounter Visit Diagnoses Not on filedocumented in this encounter Care Teams Healthcare Technician Relationship Specialty Start Date End Date Raleigh Collazo MD [address] [place] [address] PCP - General Family Medicine 08/28/22 documented as of this encounter
--- OUTSIDE RECORDS SUMMARY | 2024-08-26 12:42 | XMS_ITS | Encounter Summary ---
Author Organization [facility] Address [address] [place] [address] Care Team Providers Care Welder Plasma Arc Name Role Phone Raleigh Collazo MD Primary Care Provider [phone] Encounter Details Date Type Department Care Team (Late st Contact Info) Description 07/30/2024 Telephone [facility] OB [address] [facility] [place] [address] Shari Gomez LPN Social History Tobacco Use Types Packs/Day [...] often do you attend chur ch or anabaptism services? Never 02/15/2024 Do you belong to any clubs o r organizations such as rastafari groups, unions, fraternal or athletic groups, or [...] and heating? Not hard at all 02/15/2024 [facility] of Occupat ional Health - Occupational Stress [...] time in the past 12 m [facility] [place], were you homeless or living in a [...] encounter Miscellaneous Notes * Telephone Encounter - Shari Gomez LPN - 07/30/2024 2:54 PM EDT Please refer to M for IVF , anxiety and panic attacks and med management documented in this encounter Plan of Treatment Upcoming Encounters Date Type Department Care Team (Late st Contact Info) Description 09/25/2024 8:40 AM EDT Routine [facility] OB [address] [facility] [place] [address] Uriel Meade, DO [address] [place] [place], [place] [id number] documented as of this encounter Visit Diagnoses Not on filedocumented in this encounter Care Teams Welder Plasma Arc Relationship Specialty Start Date End Date Raleigh Collazo MD [address] [place] [address] PCP - General Family Medicine 08/28/22 documented as of this encounter
--- OUTSIDE RECORDS SUMMARY | 2024-08-26 12:42 | XMS_ITS | Clinical Summary ---
Author Organization [facility] Healthcare Address [address] [place] [address] Care Team Providers Care Factory Lay Out Engineer Name Role Phone Raleigh Collazo MD Primary Care Provider Allergies Active Allergy Reactions Criticality Noted Date Comments Dust Mite Extract Unknown 08/28/2022 Medications budesonide-formo terol (Breyna) 80-4.5 MCG/ACT inhalerIndicatio ns:Mild intermittent asthma without complication (HCC) Inhale 2 puffs Daily Rinse mouth with water after use to reduce aftertaste and incidence of candidiasis. Do not swallow. 10.2 g 2 08/23/19 24 Active fish oil concentrate (Sylvania-3) 1000 MG capsuleIndicatio ns:Female infertility,Fall opian tube disorder,Anovula tion Take 1 capsule (1 g) by mouth Daily 30 capsule 11 02/21/20 24 025 Active Vit-Fe Fumarate-FA ( Vitamins) 28-0.8 MG tabletIndication s:Female infertility,Fall opian tube disorder,Anovula tion Take 1 tablet by mouth Daily 30 tablet 11 02/21/20 24 025 Active cholecalciferol (Vitamin D-3) 25 MCG (1000 UT) tabletIndication s:Female infertility,Fall opian tube disorder,Anovula tion Take 1 tablet (25 mcg) by mouth Daily 60 tablet 3 02/21/20 24 Active QUEtiapine (SEROquel) 50 MG tablet Take 50 mg by mouth in the morning and 50 mg before bedtime. Active ondansetron (Zofran) 8 MG tablet Take 8 mg by mouth every 8 (eight) hours if needed for nausea or vomiting 08/15/19 25 Active polyethylene glycol, PEG, 3350 (Miralax) 17 g packet Take 17 g by mouth Daily Active OLANZapine (ZyPREXA) 2.5 MG tablet at bedtime Active ALPRAZolam (Xanax) 0.5 MG tablet 1 tablet Orally Twice a day as needed for anxiety for 30 days 025 Discontinued ARIPiprazole (Abilify) 5 MG tabletIndication s:Bipolar affective disorder, currently manic, moderate (HCC) Take 1 tablet (5 mg) by mouth Daily 30 tablet 04/14/19 25 025 Discontinued metoclopramide (Reglan) 10 MG tablet Take 10 mg by mouth 025 Discontinued sucralfate (Carafate) 1 GM/10ML suspensionIndica tions:Subchorion ic hematoma in first trimester, single or unspecified fetus ([facility]-H[facility]),Nausea and vomiting, unspecified vomiting type,Hyperemesis of ([facility]HS-HCC) Take 10 mL (1 g) by mouth in the morning and 10 mL (1 g) at noon and 10 mL (1 g) in the evening and 10 mL (1 g) before bedtime. 1200 mL 3 07/03/19 25 025 busPIRone (Buspar) 5 MG tabletIndication s:Anxiety, generalized Take 1 tablet (5 mg) by mouth in the morning and 1 tablet (5 mg) before bedtime. 60 tablet 1 07/31/19 25 025 Discontinued Active Problems Problem Noted Date Diagnosed Date Fallopian tube disorder 03/13/2024 Anovulation 03/13/2024 Female infertility 03/13/2024 Myalgia 02/18/2024 Assessment & Plan (02/18/2024 3:33 PM EST): Dr Collazo put in lab orders and patient will go to [facility] Will call with results Well woman exam with routine gynecological exam 03/19/2023 Anxiety 12/21/2022 Asthma 12/21/2022 Attention deficit hyperactiv ity disorder (ADHD), combined type 12/21/2022 PTSD (post-traumatic stress disorder) 12/21/2022 Bipolar affective disorder, current episode hypo manic 12/21/2022 Bipolar 1 disorder 11/13/2022 Proteinuria 08/03/2010 Estimated Date of Delivery Comme nts Yes 02/12/2025 Based on Interfa bridget RENO Encounters Date Type Department Care Team Description 08/26/2024 9:20 AM EDT Routine [facility] [address] [place] [address] Uriel Meade, Well woman exam with routine gynecological exam; STD exposure; Second trimester ([facility]); 15 weeks gestation of ([facility]); Screening, , for anatomic survey ([facility]) 08/26/2024 Bamboo flowsheet [facility] [address] [place] [address] Uriel Meade, 08/19/2024 Patient Outreach [facility] [place] [address] [address] Dary Anderson LPN 08/18/2024 Abstract [facility] [place] [address] Uriel Meade, 08/18/2024 Abstract [facility] [address] [place] [address] Uriel Meade, 08/14/2024 Telephone [facility] [address] [place] [address] Akua Streeter, ANN 07/30/2024 2:00 PM EDT Routine [facility] [address] [place] [address] Uriel Meade, First trimester ([facility]); 11 weeks gestation of ([facility]); Nausea and vomiting, unspecified vomiting type; Hyperemesis of ([facility]); Encounter for in vitro fertilization; Anxiety, generalized 07/30/2024 Telephone [facility] [address] [facility] [place] [place] [address] Shari Gomez, ANN 07/30/2024 Bamboo flowsheet [facility] [address] [place] [address] Uriel Meade, DO 07/21/2024 Abstract [facility] [address] [place] [address] Uriel Meade, DO 07/17/2024 2:30 PM EDT Initial [facility] [place] [address] [place] [address] GA: 10w0d 07/10/2024 Clinisync Result Encounter [facility] External Department Unsolicited Provider, Generic External Data 07/08/2024 3:00 PM EDT Ancillary Procedure [facility] [address] [place] [address] Subchorionic hematoma in first trimester, single or unspecified fetus ([facility]); Hyperemesis of ([facility]) 07/08/2024 Orders Only [facility] [address] [place] [address] Akua Streeter, ANN , unspecified gestational age ([facility]); Encounter for supervision of normal first in first trimester ([facility]); resulting from in vitro fertilization in first trimester ([facility]) 07/04/2024 Abstract [facility] [address] [place] [address] Uriel Meade, DO 07/03/2024 [address] [facility] [address] [place] [address] Belinda Noble MA Error (VOID this visit) 07/02/2024 Orders Only [facility] [address] [place] [address] Akua Streeter, WELFARE ELIGIBILITY INTERVIEWER Subchorionic hematoma in first trimester, single or unspecified fetus ([facility]); Nausea and vomiting, unspecified vomiting type; Hyperemesis of ([facility]) 06/30/2024 10:00 AM EDT Ancillary Procedure [facility] [address] [place] [address] Hemorrhage in early , antepartum ([facility]-H[facility]); Subchorionic hematoma in first trimester, single or unspecified fetus ([facility]) 06/30/2024 Abstract [facility] [address] [place] [address] Uriel Meade, 06/26/2024 Abstract [facility] [address] [place] [address] Akua Streeter LPN 06/26/2024 Abstract [facility] [address] [place] [address] Uriel Meade, 06/25/2024 Abstract [facility] [address] [place] [address] Uriel Meade, 06/24/2024 3:20 PM EDT Office Visit [facility] [address] [place] [address] Uriel Meade, Hospital discharge follow-up; Hyperemesis of ([facility]); Hemorrhage in early , antepartum ([facility]); Subchorionic hematoma in first trimester, single or unspecified fetus ([facility]) 06/24/2024 Abstract [facility] [address] [place] [address] Akua Streeter LPN 06/19/2024 Abstract [facility] [address] [place] [address] Uriel Meade, DO 06/19/20[address] [facility] [address] [place] [address] Akua Streeter LPN from Last 3 Months Immunizations Immunization Administration Dates Next Due DTaP, Unspecified 06/08/1999 HPV, Quadrivalent 12/13/2006,08/13/2006,06/14/19 07 Hep A, ped/adol, 2 dose 11/12/2013,04/20/2010 Hep B, Adolescent or Pediatric 11/12/2013 Hep B, adult 05/18/2014,03/30/2014 IPV 06/08/1999 Influenza Whole 12/31/2012 Influenza, injectable, quadr ivalent, preservative free 12/06/2015 MMR 06/08/1999 Meningococcal MCV4P 05/29/2008 Tdap 05/29/2008 Varicella 04/20/2010 Family History Medical History Relation Name Comments No Known Problems Daughter Arthritis Father Lung cancer Father Heart disease Maternal Grandfather Hypertension Maternal Grandfather Stroke Maternal Grandfather Cancer Maternal Grandmother Hypertension Maternal Grandmother ADD / ADHD Mother Hypothyroidism Mother Lung cancer Mother Cervical cancer Paternal Grandmother Clotting disorder Paternal Grandmother Hypertension Paternal Grandmother ADD / ADHD Sibling Relation Name Status Comments Daughter Alive Father Alive Maternal Grandfather Alive Maternal Grandmother Alive Mother Paternal Grandmother Alive Sibling Alive Social History Tobacco Use Types Packs/Day Years [...] 02/15/2024 How often do you attend chur or scientology services? Never 02/15/2024 Do you belong to any clubs o r organizations such as mandaen groups, unions, fraternal or athletic groups, or [...] and heating? Not hard at all 02/15/2024 [facility]at [facility] - Occupational Stress Questionnaire Answer Date Recorded [...] any time in the past 12 m [facility], were you homeless or living in a prison (including now)? No 02/15/2024 Estimated Date of Delivery Comme nts Yes 02/12/2025 Based on Interfa bridget RENO Sex and Gender Information Value Date Recorded Sex Assigned at Not on file Legal Sex Female 7:05 PM EDT Gender Identity Not on file Sexual Orientation Not on file Last Filed Vital Signs Vital Sign Reading Time Taken Comments Blood Pressure 120/74 08/26/2024 9:49 AM EDT Pulse 78 04/14/2024 2:48 PM EST Temperature 36.9 C (98.4 F) 04/14/2024 2:48 PM EST Respiratory Rate - - Oxygen Saturation 98% 04/14/2024 2:48 PM EST Inhaled Oxygen Concentration - - Weight 54.5 kg (120 lb 4 oz) 08/26/2024 9:49 AM EDT Height 167.6 cm (5' 6 ) 04/14/2024 2:48 PM EST Body Mass Index 19.41 04/14/2024 2:48 PM EST Plan of Treatment Upcoming Encounters Date Type Department Care Team (Late st Contact Info) Description 09/25/2024 8:40 AM EDT Routine [facility] [address] [place] [address] Uriel Meade, DO [address] [place] [address] [place] [address] Health Maintenance Due Date Last Done Comments Influenza Vaccine (Season Ended) 2024 12/06/19 16, 12/31/2012 Procedures Procedure Name Priority Date/Time Associated Diagnosis Comments POCT URINALYSIS DIPSTICK Routine 08/26/2024 9:55 AM EDT 15 weeks gestation of ([facility]) POCT URINALYSIS DIPSTICK Routine 07/30/2024 2:27 PM EDT First trimester ([facility]) BOX TEST Routine 07/10/2024 3:23 PM EDT OB TRANSVAGINAL Routine 07/08/2024 3: 13 PM EDT Subchorionic hematoma in first trimester, single or unspecified fetus ([facility]) Hyperemesis of ([facility]) OB TRANSVAGINAL Routine 06/30/2024 10 :25 AM EDT Hemorrhage in early , antepartum ([facility]) Subchorionic hematoma in first trimester, single or unspecified fetus ([facility]) POCT URINALYSIS DIPSTICK Routine 06/24/2024 3:02 PM EDT Hyperemesis of ([facility]) POCT , URINE Routine 06/24/2024 3:01 PM EDT Hyperemesis of ([facility]) from Last 3 Months Results * POCT urinalysis dipstick manually resulted (08/26/2024 9:55 AM EDT) Only the most recent of3 resultswithin the time period is included. Color, UA Yellow Clarity, UA Clear Glucose, [...] Positive Urine 08/26/2024 9:55 AM EDT Uriel Halina DO POINT OF CARE TEST ENTER/EDIT OR DERABLES Final Result * BOX TEST (07/10/2024 3:23 PM EDT) BOX TEST SENT OUT [facility] BOX[address] [facility] [address] 07/10/24 [facility] 07/10/2024 3:23 PM EDT 07/10/2024 3:30 PM EDT Narrative [facility] - 07/10/2024 3:31 PM EDT [facility] Uriel Meade DO LAB BLOOD ORDERABLES Final Resul t [facility] * US OB transvaginal (07/08/2024 3:13 PM EDT) Only the most recent of2 resultswithin the time period is included. Anatomical Region Laterality Modality Body Ultrasound 07/09/2024 [...] II, MD, PHD at 09-Jul-2024 08:43:53 AM [facility] Procedure Note Saundra Marie MD - [...] signed by SAUNDRA MARIE II, MD, PHD [id number] 08:43:53 AM [facility] Uriel Meade DO IMG OB US PROCEDURES Final Resul t * (ABNORMAL) POCT , urine manually resulted (06/24/2024 3:01 PM EDT) Preg Test, Ur Positive Negative Urine 06/24/2024 3:01 PM EDT Uriel Meade DO POINT OF CARE TEST ENTER/EDIT OR DERABLES Final Result from Last 3 Months Insurance BCBS Care Teams Factory Lay Out Engineer Relationship Specialty Start Date End Date Raleigh Collazo MD [address] [place] [address] PCP - General Family Medicine 08/28/22
--- OUTSIDE RECORDS SUMMARY | 2024-08-26 12:42 | XMS_ITS | Encounter Summary ---
Author Organization [facility] Address [address] [facility] [place] [address] Care Team Providers Care Candle Wicker Name Role Phone Carolyne Edmonds MD Primary Care Provider [phone] Encounter Details Date Type Department Care Team (Late st Contact Info) Description 05/28/2023 Clinisync Result Encounter [facility] External Department Unsolicited [...] Description 09/25/2024 8:40 AM EDT Routine [facility] [address] [place] [phone] Marzena Meade, [address] [facility] [place] [address] documented as of this encounter Procedures Procedure Name Priority Date/Time Associated Diagnosis Comments MRI HEAD/BRAIN WO/W CONTR 05/28/2023 2:22 PM EDT documented in this encounter Results * MRI HEAD/BRAIN WO/W CONTR (05/28/2023 2:22 PM EDT) Anatomical Region Laterality Modality Radiographic Rachel ging 05/28/2023 2:22 PM EDT Narrative 05/28/2023 2:24 PM EDT [facility] [place] [id number] Magnetic Resonance Report Signed Patient: INDU ST MR#: [id number] : 1995 Acct:[id number] Age/Sex: 27 / F ADM Date: 05/28/23 Loc: MRI Attending Dr: Marzena Meade D.O. Ordering Physician: Marzena Meade D.O. Date of Service: 05/28/23 Procedure(s): MR head/brain wo/w con Accession Number(s): [id number] cc: CAROLYNE EDMONDS ; Marzena Meade D.O. [facility] [place] [id number] Patient Name: INDU ST MRN: [id number] date: 1995 Sex: F Assigned Patient Location: MRI Current Patient Location: MRI Accession/Order Number: [id number] Exam Date: 05/28/2023 12:42 Report Date: 05/28/2023 14:22 At the request of: MARZENA MEADE Procedure: MR head/brain wo/w con MR head/brain wo/w con, 05/28/2023 12:42 PM EDT INDICATION: Elevated prolactin levels R79.89 COMPARISON: There is no appropriate prior study for comparison. TECHNIQUE: Multiplanar, multisequential MRI images of brain were obtained without and with injection of contrast. FINDINGS: The cerebral sulci as well as ventricular system are appropriate for age. There is no restricted diffusion. Pituitary gland: 3.5 x 2.5 mm (transverse, cc) lesion in the left pituitary gland is noted most likely consistent with a microadenoma. No other abnormality of the pituitary gland is noted. The pituitary stalk is in midline. The cavernous sinuses and optic chiasma are unremarkable. There is no intracranial mass, mass effect, midline shift, intra or extra-axial fluid collection or large hemorrhage. Normal flow-void in the intracranial vessels is noted. Mucosal thickening within the left maxillary sinus and left anterior ethmoidal cells is noted. The visualized portions of orbits, mastoid air cells as well as remainder of paranasal sinuses are unremarkable. MR/MR head/brain wo/w con IMPRESSION: No acute intracranial process is noted. 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 Electronically authenticated by: ARMANI VARGAS Date: 05/28/2023 14:22 Dictated By: Armani Vargas M.D. Signed By: 05/28/231423 DD/ 21 TD/TT: Vice President Talent Management: Procedure Note Radiology, Radiologist, MD - 05/28/2023 [place] [address] Magnetic Resonance Report Signed Patient: INDU ST LMR#: [id number] : 1995Acct:[id number] Age/Sex: 27 / FADM Date: 05/28/23 Loc: MRI Attending Dr: Marzena Meade D.O. Ordering Physician: Marzena Meade D.O. Date of Service: 05/28/23 Procedure(s): MR head/brain wo/w con Accession Number(s): [id number] cc: CAROLYNE EDMONDS ; Marzena Meade D.O. [facility] [place] [id number] Patient Name: INDU ST MRN: [id number] date: 1995 Sex: F Assigned Patient Location: MRI Current Patient Location: MRI Accession/Order Number: [id number] Exam Date: 05/28/2023 12:42 Report Date: 05/28/2023 14:22 At the request of: MARZENA MEADE Procedure: MR head/brain wo/w con MR head/brain wo/w con, 05/28/2023 12:42 PM EDT INDICATION: Elevated prolactin levels R79.89 COMPARISON: There is no appropriate prior study for comparison. TECHNIQUE: Multiplanar, multisequential MRI images of brain were obtained without and with injection of contrast. FINDINGS: The cerebral sulci as well as ventricular system are appropriate for age. There is no restricted diffusion. Pituitary gland: 3.5 x 2.5 mm (transverse, cc) lesion in the leftpituitary gland is noted most likely consistent with a microadenoma. No other abnormality of the pituitary gland is noted. The pituitary stalk is in midline. The cavernous sinuses and optic chiasma are unremarkable. There is nointracranial mass, mass effect, midline shift, intra or extra-axial fluid collection or large hemorrhage. Normal flow-void in the intracranial vessels is noted. Mucosal thickening within the left maxillary sinus and left anteriorethmoidal cells is noted. The visualized portions of orbits, mastoid air cells as well as remainderof paranasal sinuses are unremarkable. MR/MR head/brain wo/w con IMPRESSION: No acute intracranial process is noted. 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 Electronically authenticated by: ARMANI VARGAS Date: 05/28/2023 14:22 Dictated By: Armani Vargas M.D. Signed By:05/28/23 1424 DD/ 1422 TD/TT: Vice President Talent Management: Generic External Data Provider IMG XR PROCEDURES Final Result documented in this encounter Visit Diagnoses Not on filedocumented in this encounter Care Teams Candle Wicker Relationship Specialty Start Date End Date Carolyne Edmonds MD [address] [place] [address] PCP - General Family Medicine 08/28/22 documented as of this encounter
--- OUTSIDE RECORDS SUMMARY | 2024-08-26 12:42 | XMS_ITS | Encounter Summary ---
Author Organization [facility] Address [address] [place] [address] Care Team Providers Care Quality Rn Name Role Phone Raleigh Collazo MD Primary Care Provider [phone] Encounter Details Date Type Department Care Team (Late st Contact Info) Description 04/29/2024 Abstract [facility] [address] [facility] [place] [address] Akua Streeter LPN Social History [...] any clubs o r organizations such as nondenominational groups, unions, fraternal [...] [facility] - [...] a correction (including now)? No 02/15/2024 Comments No Sex [...] AM EDT Routine [facility] [address] [facility] [place] [address] Uriel Meade DO [address] [facility] [place] [address] documented as of this encounter Visit Diagnoses Not on filedocumented in this encounter Care Teams Quality Rn Relationship Specialty Start Date End Date Raleigh Collazo MD [address] [place] [address] PCP - General Family Medicine 08/28/22 documented as of this encounter
--- OUTSIDE RECORDS SUMMARY | 2024-08-26 12:42 | XMS_ITS | Encounter Summary ---
Author Organization [facility] Address [address] [place] [address] Care Team Providers Care Retail Tire Sales Manager Name Role Phone Raleigh Collazo MD Primary Care Provider [phone] Encounter Details Date Type Department Care Team (Late st Contact Info) Description 06/30/2024 Abstract [facility] [address] [facility] [address] [place] [address] Uriel Meade, DO [address] [facility] [address] [place], [place] [address] Social History Tobacco Use Types Packs/Day Years [...] often do you attend chur ch or presybeterian services? Never 02/15/2024 Do you belong to any clubs o r organizations such as caodaism groups, unions, fraternal or athletic groups, or [...] and heating? Not hard at all 02/15/2024 [facility] [place] [facility] Occupat ional Health - Occupational Stress [...] any time in the past 12 m [facility], were you homeless or living in a [place] health care facility (including now)? No 02/15/2024 Comments Unknown Sex [...] AM EDT Routine [facility] [address] [facility] [place] [address] Uriel Meade, DO [address] [facility] [address] [place], [place] [address] documented as of this encounter Visit Diagnoses Not on filedocumented in this encounter Care Teams Retail Tire Sales Manager Relationship Specialty Start Date End Date Raleigh Collazo MD [address] [place] [address] PCP - General Family Medicine 08/28/22 documented as of this encounter
--- OUTSIDE RECORDS SUMMARY | 2024-08-26 12:42 | XMS_ITS | Encounter Summary ---
Author Organization [facility] Address [address] [place] [address] Care Team Providers Care Carton Stapler Name Role Phone Raleigh Collazo MD Primary Care Provider [phone] Encounter Details Date Type Department Care Team (Late st Contact Info) Description 06/26/2024 Abstract [facility] [address] [facility] [place] [address] Akua Streeter LPN Social History [...] any clubs o r organizations such as mormonism groups, unions, fraternal or athletic groups, or [...] and heating? Not hard at all 02/15/2024 [facility]at ional [facility] - Occupational [...] any time in the past 12 m [facility], were you homeless or living in a group home (including now)? No 02/15/2024 Comments Unknown Sex [...] AM EDT Routine [facility] [address] [place] [address] Uriel Meade DO [address] [facility] [place] [address] documented as of this encounter Visit Diagnoses Not on filedocumented in this encounter Care Teams Carton Stapler Relationship Specialty Start Date End Date Raleigh Collazo MD [address] [place] [address] PCP - General Family Medicine 08/28/22 documented as of this encounter
--- OUTSIDE RECORDS SUMMARY | 2024-08-26 12:42 | XMS_ITS | Encounter Summary ---
Author Organization [facility] Address [address] [facility] [place] [address] Care Team Providers Care Computer Network And Systems Engineer Name Role Phone Raleigh Collazo MD Primary Care Provider [phone] Reason for Visit * Reason Comments Med Refill Encounter Details Date Type Department Care Team (Late Contact Info) Description 07/26/2023 Refill [facility] [address] [place] [address] Raleigh Collazo MD [address] [place] [address] Other acute gastritis without hemorrhage Social History Tobacco Use Types Packs/Day Years [...] encounter Miscellaneous Notes * Telephone Encounter - Dereje Davenport MA - 07/27/2023 8:03 AM EDT Signed 07/26/23 documented in this encounter Plan of Treatment Upcoming Encounters Date Type Department Care Team (Late Contact Info) Description 09/25/2024 8:40 AM EDT Routine [facility] [address] [facility] [place] [address] Uriel Meade, DO [address] [place] [address] documented as of this encounter Visit Diagnoses Diagnosis Other acute gastritis without hemorrhage documented in this encounter Care Teams Computer Network And Systems Engineer Relationship Specialty Start Date End Date Raleigh Collazo MD [address] [place] [address] PCP - General Family Medicine 08/28/22 documented as of this encounter
--- OUTSIDE RECORDS SUMMARY | 2024-08-26 12:42 | XMS_ITS | Encounter Summary ---
Author Organization [facility] Address [address] [facility] [place] [address] Care Team Providers Care Marble Machine Tender Name Role Phone Raleigh Collazo MD Primary Care Provider [phone] Encounter Details Date Type Department Care Team (Late Contact Info) Description 11/08/2022 Abstract [facility] [address] [place] [address] Dary Wilhelm PA [address] [place] [address] Dr [place], [facility]11 Social History Tobacco Use Types Packs/Day Years [...] Description 09/25/2024 8:40 AM EDT Routine [facility] OB [address] [place] [address] Uriel Meade [address] Radha Arre[place], [facility]11 documented as of this encounter Visit Diagnoses Not on filedocumented in this encounter Care Teams Marble Machine Tender Relationship Specialty Start Date End Date Raleigh Collazo MD [address] [place] [address] PCP - General Family Medicine 08/28/22 documented as of this encounter
--- OUTSIDE RECORDS SUMMARY | 2024-08-26 12:42 | XMS_ITS | Encounter Summary ---
Author Organization [facility] Address [address] [place] [address] Care Team Providers Care Drying Machine Operator Name Role Phone Raleigh Collazo MD Primary Care Provider [phone] Encounter Details Date Type Department Care Team (Late st Contact Info) Description 07/04/2024 Abstract [facility] [address] [facility] [address] Uriel Meade, DO [address] [facility] [address] Radha [place], [place] [id number] Social History Tobacco Use Types Packs/Day Years [...] often do you attend chur ch or taoism services? Never 02/15/2024 Do you belong to any clubs o r organizations such as alevism groups, unions, fraternal or athletic groups, or [...] and heating? Not hard at all 02/15/2024 [facility] [place] of Occupat ional Health - Occupational Stress [...] were you homeless or living in a fdc (including now)? No 02/15/2024 Comments Unknown Sex [...] AM EDT Routine [facility] [address] [facility] [place] [place] [address] Uriel Meade, DO [address] [facility] [address] [place] [place], [place] [id number] documented as of this encounter Visit Diagnoses Not on filedocumented in this encounter Care Teams Drying Machine Operator Relationship Specialty Start Date End Date Raleigh Collazo MD [address] [place] [address] PCP - General Family Medicine 08/28/22 documented as of this encounter
--- OUTSIDE RECORDS SUMMARY | 2024-08-26 12:42 | XMS_ITS | Encounter Summary ---
Author Organization [facility] EHR [facility] tem Address [id number] [address] [place] [address] Care Team Providers Care Neighborhood Aide Name Role Phone Unavailable Primary Care Provider Unavailabl e Encounter Details Date Type Department Care Team (Late Contact Info) Description 08/18/2024 Abstract [facility]aternal- Medicine at [facility] [address] [place] [phone] Jacquelin Yung MD [address] [facility], [address] [place] [address] Social History Tobacco Use Types Packs/Day Years [...] 09/02/2024 7:30 AM EDT Appointment [facility] [address] [place] [phone] 09/02/2024 8:45 AM EDT Office Visit Maternal- Medicine at [facility] [address] [place] [phone] Jacquelin Yung MD [address] [facility], [address] [place] [address] documented as of this encounter Procedures Procedure Name Priority Date/Time Associated Diagnosis Comments HIV 1&2 AB/AG SCREEN (P24 AG) Routine 03/14/2024 RUBELLA IGG IMMUNE STATUS Routine 03/14/2024 RUBELLA IGG IMMUNE STATUS Routine 03/14/2024 SYPHILIS TOTAL(UNKNOWN SYPHILIS STATUS) Routine 03/14/2024 SYPHILIS TOTAL(UNKNOWN SYPHILIS STATUS) Routine 03/14/2024 HEPATITIS B SURFACE ANTIGEN Routine 03/14/2024 TYPE AND SCREEN Routine 03/14/2024 HEMOGLOBIN A1C Routine 03/14/2024 LIVER PANEL Routine 03/14/2024 BASIC METABOLIC PANEL Routine 03/14/2024 documented in this encounter Results * Rubella IGG immune status (03/14/2024) Rubella immune IgG 13.50 MANUALLY TRANSCRIBED RESULTS Blood Venous blood / Unknown us Not In System Ref Prov LAB BLOOD ORDERABLES Daniella l Result MANUALLY TRANSCRIBED RESULTS * Syphilis Total (Unknown Syphilis Status) (03/14/2024) Syphilis Total non reactive MANUALLY TRANSCRIBED RESULTS Blood Venous blood / Unknown us Not In System Ref Prov LAB BLOOD ORDERABLES Daniella l Result Performing Organization Address [facility] Co de Phone Number MANUALLY TRANSCRIBED RESULTS * Hemoglobin A1c (03/14/2024) Pathologist [facility] Hemoglobin A1C 5.3 4.0 - 6.0 % MANUALLY TRANSCRIBED RESULTS Blood Venous blood / Unknown Uriel R Halina DO LAB BLOOD ORDERABLES Final Resu lt Performing Organization Address [facility] Co de Phone Number MANUALLY TRANSCRIBED RESULTS * Type and screen (03/14/2024) Pathologist [facility] Abo/Rh(D) O Positive MANUALLY TRANSCRIBED RESULTS Antibody Screen negative MANUALLY TRANSCRIBED RESULTS Blood Venous blood / Unknown us Not In System Ref Prov BLOOD BANK TEST ORDERABLE S Final Result Performing Organization Address [facility] de Phone Number MANUALLY TRANSCRIBED RESULTS * (ABNORMAL) Liver panel (03/14/2024) Pathologist [facility] Alkaline Phosphatase 51 25 - 125 U/L MANUALLY TRANSCRIBED RESULTS ALT 47(A) 7 - 35 U/L MANUALLY TRANSCRIBED RESULTS AST 21 13 - 35 U/L MANUALLY TRANSCRIBED RESULTS Blood Venous blood / Unknown Uriel R Halina DO LAB BLOOD ORDERABLES Final Resu lt Performing Organization Address [facility] de Phone Number MANUALLY TRANSCRIBED RESULTS * Basic Metabolic Panel (03/14/2024) Pathologist [facility] Glucose 87 mg/dL MANUALLY TRANSCRIBED RESULTS BUN 13 4 - 21 mg/dL MANUALLY TRANSCRIBED RESULTS Creatinine 0.8 0.5 - 1.1 mg/dL MANUALLY TRANSCRIBED RESULTS Potassium 4.1 3.4 - 5.3 mmol/L MANUALLY TRANSCRIBED RESULTS Sodium 142 137 - 147 mmol/L MANUALLY TRANSCRIBED RESULTS Blood Venous blood / Unknown Uriel R Halina DO LAB BLOOD ORDERABLES Final Resu lt Performing Organization Address [facility] Co de Phone Number MANUALLY TRANSCRIBED RESULTS * Hepatitis B surface antigen (03/14/2024) Hepatitis B Surface Antigen negative MANUALLY TRANSCRIBED RESULTS Blood Venous blood / Unknown us Not In System Ref Prov LAB BLOOD ORDERABLES Daniella l Result MANUALLY TRANSCRIBED RESULTS * HIV 1&2 AB/AG Screen (P24 AG) (03/14/2024) HIV 1&2 AB/AG non reactive MAN UALLY TRANSCRIBED RESULTS Blood Venous blood / Unknown us Not In System Ref Prov LAB BLOOD ORDERABLES Daniella l Result MANUALLY TRANSCRIBED RESULTS * Rubella IGG immune status (03/14/2024) Rubella immune IgG 13.50 MANUALLY TRANSCRIBED RESULTS Blood Venous blood / Unknown us Not In System Ref Prov LAB BLOOD ORDERABLES Daniella l Result MANUALLY TRANSCRIBED RESULTS * Syphilis Total (Unknown Syphilis Status) (03/14/2024) Syphilis Total non reactive MANUALLY TRANSCRIBED RESULTS Blood Venous blood / Unknown us Not In System Ref Prov LAB BLOOD ORDERABLES Daniella l Result MANUALLY TRANSCRIBED RESULTS documented in this encounter Visit Diagnoses Not on filedocumented in this encounter
--- OUTSIDE RECORDS SUMMARY | 2024-08-26 12:43 | XMS_ITS | Encounter Summary ---
Author Organization [facility] Address [address] [facility] [place] [address] Care Team Providers Care Tonal Regulator Name Role Phone Raleigh Collazo MD Primary Care Provider [phone] Encounter Details Date Type Department Care Team (Late Contact Info) Description 01/04/2024 Abstract [facility] [address] [place] [address] Uriel Meade DO [facility] [place], [facility] Social History Tobacco Use Types Packs/Day Years [...] Routine [facility] [address] [place] [address] Uriel Meade DO [address] [place] [address] documented as of this encounter Visit Diagnoses Not on filedocumented in this encounter Care Teams Tonal Regulator Relationship Specialty Start Date End Date Raleigh Collazo MD [address] [place] [address] PCP - General Family Medicine 08/28/22 documented as of this encounter
--- OUTSIDE RECORDS SUMMARY | 2024-08-26 12:43 | XMS_ITS | Encounter Summary ---
Author Organization [facility] Address [address] [place] [address] Care Team Providers Care Fence Post Driver Name Role Phone Raleigh Collazo MD Primary Care Provider [phone] Encounter Details Date Type Department Care Team (Late st Contact Info) Description 06/25/2024 Abstract [facility] [address] [facility] [place] [address] Uriel Meade, DO [address] [facility] [address] [place], [place] [id number] Social History Tobacco Use Types Packs/Day Years [...] often do you attend chur ch or baptist services? Never 02/15/2024 Do you belong to any clubs o r organizations such as confucianist groups, unions, fraternal or athletic groups, or [...] and heating? Not hard at all 02/15/2024 [facility] of Occupat ional Health - Occupational Stress [...] in the past 12 m [facility], were you homeless or living in a usp (including now)? No 02/15/2024 Comments Unknown Sex [...] AM EDT Routine [facility] [address] [facility] [place] [place] [address] Uriel Meade, DO [address] [facility] [address] [place], [place] [phone] documented as of this encounter Visit Diagnoses Not on filedocumented in this encounter Care Teams Fence Post Driver Relationship Specialty Start Date End Date Raleigh Collazo MD [address] [place] [address] PCP - General Family Medicine 08/28/22 documented as of this encounter
--- OUTSIDE RECORDS SUMMARY | 2024-08-26 12:43 | XMS_ITS | Encounter Summary ---
Author Organization [facility] Address [address] [place] [address] Care Team Providers Care Decal Decorator Name Role Phone Joe Zuleta DO Primary Care Provider [phone] Reason for Visit * Reason Onset Date Comments Chest Pain 08/13/2024 FYI Encounter Details Date Type Department Care Team (Late st Contact Info) Description 08/13/2024 Telephone [facility] Primary Care [address] [place] [address] Joe Zuleta DO [address] [place] [address] Chest Pain (FYI) Social History Tobacco Use Types Packs/Day Years Used Date Smoking Tobacco: Never Smokeless Tobacco: Never Alcohol Use Standard Drinks/Week Comments Not Currently 0 (1 standard drink = 0.6 oz pur e alcohol) [facility] Utilities Answer Date Recorded In the past 12 months has [employer], gas, oil, or water [employer] threatened to shut off services in your [...] any time in the past 12 m [facility], were you homeless or living in a jail (including now)? No 07/07/2024 Food Insecurity Answer [...] on filedocumented in this encounter Care Teams Decal Decorator Relationship Specialty Start Date End Date Joe Zuleta DO [address] [place] [address] PCP - General Family Medicine 07/16/24 documented as of this encounter
--- OUTSIDE RECORDS SUMMARY | 2024-08-26 12:43 | XMS_ITS | Encounter Summary ---
Author Organization [facility] Address [address] [place] [address] Care Team Providers Care Packing Line Operator Name Role Phone Raleigh Collazo MD Primary Care Provider [phone] Encounter Details Date Type Department Care Team (Late st Contact Info) Description 06/26/2024 Abstract [facility] [address] [facility] [place] [address] Uriel Meade, DO [address] [facility] [address] [place], [place] [id number] Social History Tobacco Use Types Packs/Day Years [...] often do you attend chur ch or worship services? Never 02/15/2024 Do you belong to any clubs o r organizations such as jewish groups, unions, fraternal or athletic groups, or [...] and heating? Not hard at all 02/15/2024 [facility] [place] of Occupat ional Health - Occupational Stress [...] any time in the past 12 m [facility], were you homeless or living in a [...] AM EDT Routine [facility] [address] [facility] [place] [place] [address] Uriel Meade, DO [address] [facility] [address] [place] [place], [place] [id number] documented as of this encounter Visit Diagnoses Not on filedocumented in this encounter Care Teams Packing Line Operator Relationship Specialty Start Date End Date Raleigh Collazo MD [address] [place] [address] PCP - General Family Medicine 08/28/22 documented as of this encounter
--- OUTSIDE RECORDS SUMMARY | 2024-08-26 12:43 | XMS_ITS | Encounter Summary ---
Author Organization [facility] Address [address] [place] [address] Phone Care Team Providers Care Fire Prevention Inspector Name Role Phone Song Joe Johnson Primary Care Provider + Encounter Details Date Type Department Care Team (Late st Contact Info) Description 08/16/2024 Documentation [facility] [address] [place] [address] [place] [address] [place] [id number] Social History Tobacco Use Types Packs/Day Years [...] AM EDT documented as of this encounter Plan of Treatment Not on file documented as of this encounter Visit Diagnoses Not on filedocumented in this encounter Care Teams Fire Prevention Inspector Relationship Specialty Start Date End Date Joe Zuleta DO [address] [facility] [place] [address] PCP - General Family Medicine 08/13/24 documented as of this encounter
--- OUTSIDE RECORDS SUMMARY | 2024-08-26 12:43 | XMS_ITS | Clinical Summary ---
Author Organization [facility] Address [address] [place] [address] Care Team Providers Care Development Manager Name Role Phone Joe Zuleta DO Primary Care Provider [phone] Allergies Active Allergy Reactions Criticality Noted Date Comments Dust Mite Extract 07/07/2024 Medications famotidine (PEPCID) 20 MG tablet Take 1 tablet by mouth 2 times daily 06/23/19 25 Active pantoprazole (PROTONIX) 40 MG tablet Take 1 tablet by mouth daily 06/23/19 25 Active Vit-Fe Fumarate-FA ( VITAMINS) 28-0.8 MG TABS Take 1 tablet by mouth daily 02/21/20 24 025 Active progesterone (PROMETRIUM) 200 MG CAPS capsule Take 1 capsule by mouth daily 07/06/19 25 Active progesterone 50 MG/ML injection Inject 1.5mL once daily. IVF medication. Ends 07/1706/24/19 25 Active metoclopramide (REGLAN) 10 MG tablet Take 1 tablet by mouth 4 times daily Active estradiol (ESTRACE) 2 MG tablet Take 1 tablet by mouth in the morning, at noon, in the evening, and at bedtime 07/02/19 25 Active sucralfate (CARAFATE) 1 GM/10ML suspension Take 10 mLs by mouth 4 times daily 07/03/19 25 Active Pancrelipase, Vfp-Pgqk-Hbbp, (CREON) 4404-8631 units CPEPIndications:Di gestive symptoms Take 1 capsule by mouth 4 times daily 120 capsule 2 07/08/19 25 Active QUEtiapine (SEROQUEL) 50 MG tabletIndications: Bipolar affective disorder, current episode hypomanic (HCC) Take 1 tablet by mouth 2 times daily 60 tablet 3 07/08/19 25 Active OLANZapine (ZYPREXA) 2.5 MG tablet 08/01/19 25 Active busPIRone (BUSPAR) 5 MG tablet Take 1 tablet by mouth 2 times daily 07/31/19 25 026 Active ondansetron (ZOFRAN-ODT) 8 MG TBDP disintegrating tabletIndications: Hyperemesis Take 1 tablet by mouth 4 times daily 40 tablet 3 08/02/19 25 Active NIFEdipine (PROCARDIA) 10 MG immediate release capsuleIndications :Esophageal spasm Take 1 capsule by mouth 3 times daily 90 capsule 3 08/02/19 25 Active hyoscyamine (LEVSIN/SL) 0.125 MG sublingual tabletIndications: Diffuse esophageal spasm Place 1 tablet under the tongue every 4 hours as needed for Cramping 30 tablet 3 08/14/19 25 Active acetaminophen (TYLENOL) [address] 1 suppository rectally 08/17/19 25 Active capsaicin (ZOSTRIX) 0.025 % cream APPLY TOPICALLY THREE TIMES DAILY. 08/16/19 25 Active hydrOXYzine HCl (ATARAX) 25 MG tablet Take 1 tablet by mouth every 8 hours as needed 08/16/19 25 Active promethazine (PHENERGAN) 12.5 MG tabletIndications: Hyperemesis gravidarum Take 1 tablet by mouth 4 times daily as needed for Nausea 30 tablet 2 07/08/19 25 025 Active Problems Problem Noted Date Diagnosed Date 14 weeks gestation of 08/15/2024 PTSD (post-traumatic stress disorder) 12/21/2022 Bipolar affective disorder, current episode hypo manic 12/21/2022 Attention deficit hyperactiv ity disorder (ADHD), combined type 12/21/2022 Comments Yes Encounters Date Type Department Care Team Description 08/18/2024 11:30 AM EDT Telemedicine [facility] Primary Care [address] [place] [address] Joe Zuleta DO Diffuse esophageal spasm (Primary Dx); Hyperemesis; Food aversion 08/13/2024 4:15 PM EDT Telemedicine [facility] [address] [place] [address] Joe Zuleta DO Diffuse esophageal spasm (Primary Dx) 08/13/[address] [place] [address] Joe Zuleta DO Chest Pain (FYI) 08/13/[address] [place] [address] Joe Zuleta DO Chest Pain 08/01/2024 8:30 AM EDT Telemedicine [address] [place] [address] Joe Zuleta DO Hyperemesis (Primary Dx); Esophageal spasm 07/16/2024 8:45 AM EDT Office Visit [address] [place] [address] Joe Zuleta DO Bipolar affective disorder, current episode hypomanic (HCC) (Primary Dx); PTSD (post-traumatic stress disorder); Food aversion; Hyperemesis 07/07/2024 7:45 AM EDT Office Visit [address] [place] [address] Joe Zuleta DO Bipolar affective disorder, current episode hypomanic (HCC) (Primary Dx); Digestive symptoms; Hyperemesis gravidarum; Food aversion 07/07/[address] [place] [address] Carolyn Corrigan MA from Last 3 Months Immunizations Immunization Administration Dates Next Due DTaP vaccine 06/08/1999 HPV Quadrivalent (Gardasil) 12/13/2006, 7,06/13/2006 Hep A, HAVRIX, VAQTA, (age 1 2m-18y), IM, 0.5mL 11/12/2013,04/20/2010 Influenza Virus Vaccine 12/06/2015 Influenza Whole 12/31/2012 Meningococcal ACWY, MENACTRA (MenACWY-D), (age 9m-55y), IM, 0.5mL 05/29/2008 Poliovirus, IPOL, (age 6w+), SC/IM, 0.5mL 1999 TDaP, ADACEL (age 10y-64y), BOOSTRIX (age 10y+), IM, 0.5mL 05/29/2008 Varicella, VARIVAX, (age 12m+), SC, 0.5mL 2010 Family History Medical History Relation Name Comments Cancer Mother Natalya Lung cancer Relation Name Status Comments Mother Natalya Alive Social History Tobacco Use Types Packs/Day Years Used Date Smoking Tobacco: Never Smokeless Tobacco: Never Tobacco Cessation:Counseling Given: No Alcohol Use Standard Drinks/Week Comments Not Currently 0 (1 standard drink = 0.6 oz pur e alcohol) [facility] Utilities Answer Date Recorded In the past 12 months has th e [employer], gas, oil, or water [employer] threatened to shut off services in your [...] any time in the past 12 m [facility], were you homeless or living in a penitentiary (including now)? No 07/07/2024 Food Insecurity Answer [...] Sign Reading Time Taken Comments Blood Pressure 122/72 07/16/2024 8:47 AM EDT Pulse 101 07/16/2024 8:47 AM EDT Temperature 36.2 C (97.1 F) 07/07/2024 7:38 AM EDT Respiratory Rate - - Oxygen Saturation 98% 07/16/2024 8:47 AM EDT Inhaled Oxygen Concentration - - Weight 54 kg (119 lb) 07/16/2024 8:47 AM EDT Height 167.6 cm (5' 6 ) 07/16/2024 8:47 AM EDT Body Mass Index 19.21 07/16/2024 8:47 AM EDT Plan of Treatment Health Maintenance Due Date Last Done Comments Polio vaccine (2 of 3 - 4-dose series) 07/06/1999 06/08/1999 HIV screen 2009 Varicella vaccine (2 of 2 - 13+ 2-dose series) 05/18/2010 04/20/2010 Hepatitis C screen 2012 Hepatitis B vaccine (2 of 3 - 19+ 3-dose series) 12/10/2013 11/12/2013 Hepatitis A vaccine (2 of 2 - 2-dose series) 05/12/2014 11/12/2013, 04/20/2010 Pap smear 08/30/2015 DTaP/Tdap/Td vaccine (3 - Td or Tdap) 05/29/2018 05/29/2008, 06/08/1999 COVID-19 Vaccine (2023-2 5 season) 2023 Flu vaccine (Season Ended) 10/03/202412/05, 12/31/2012 Depression Monitoring 07/07/2025 07/07/2024 , 07/07/2024 Respiratory Syncytial Virus (RSV) or age 60 yrs+ (1 - 1-dose 75+ series) 2069 HPV vaccine Completed 12/13/2006, 08/13/2006, 06/13/2006 Meningococcal (ACWY) vaccine Aged Out 05/29/2008 No longer eligible based on patient's age to complete this topic Depression Screen Discontinued 07/07/2024, 07/07/2024 Hib vaccine Aged Out No longer eligi ble based on patient's age to complete this topic Meningococcal B vaccine Aged Out No l onger eligible based on patient's age to complete this topic Pneumococcal 0-49 years Vaccine Aged Out No longer eligible based on patient's age to complete this topic Insurance Care Teams Development Manager Relationship Specialty Start Date End Date Joe Zuleta DO [address] [place] [address] PCP - General Family Medicine 07/16/24
--- OUTSIDE RECORDS SUMMARY | 2024-08-26 12:44 | XMS_ITS | Clinical Summary ---
Author Organization [facility] Address [address] [place] [phone] Phone Care Team Providers Care Synchronous Motor Assembler Name Role Phone Joe Zuleta Primary Care Provider + Allergies No known active allergies Medications pantoprazole (ProtoNix) 40 mg EC tabletIndications :Nausea and vomiting, unspecified vomiting type Take 1 tablet (40 mg) by mouth once daily in the morning. Take before meals. Do not crush, chew, or split. 30 tablet 025 2025 Active no115/iron/folic acid ( 19 ORAL) Take 1 tablet by mouth once daily. 024 2024 Active QUEtiapine (SEROquel) 50 mg tablet Take 1 tablet (50 mg) by mouth 2 times a day. 025 Active OLANZapine (ZyPREXA) 2.5 mg tablet Take 1 tablet (2.5 mg) by mouth 2 times a day. 025 Active pantoprazole (ProtoNix) 20 mg EC tablet Take 1 tablet (20 mg) by mouth once daily in the morning. Take before meals. Do not crush, chew, or split. Active acetaminophen (Tylenol) 650 mg suppositoryIndica tions:Nausea and vomiting, unspecified vomiting type,Chest pain, unspecified type Insert 1 suppository (650 mg) into the rectum every 6 hours. 60 suppository 025 Active ondansetron ODT (Zofran-ODT) 8 mg disintegrating tabletIndications :Nausea and vomiting, unspecified vomiting type,Chest pain, unspecified type Dissolve 1 tablet (8 mg) in the mouth every 8 hours if needed for nausea or vomiting. 20 tablet 025 Active hydrOXYzine HCL (Atarax) 25 mg tabletIndications :Nausea and vomiting, unspecified vomiting type,Chest pain, unspecified type Take 1 tablet (25 mg) by mouth every 8 hours if needed for itching or anxiety. 20 tablet 025 Active capsicum (Zostrix) 0.075 % topical creamIndications: Nausea and vomiting, unspecified vomiting type,Chest pain, unspecified type Apply topically 3 times a day. 57 g 025 Active calcium carb-mag hydrox-simeth (Mylanta Coat-Cool) 1,200 mg-270 mg -80 mg/10 mL suspensionIndicat ions:Nausea and vomiting, unspecified vomiting type,Chest pain, unspecified type Take 10 mL by mouth every 8 hours if needed (heartburn). 355 mL 025 Active ondansetron ODT (Zofran-ODT) 8 mg disintegrating tablet Dissolve 1 tablet (8 mg) in the mouth 4 times a day as needed. 025 2024 Discontinued Active Problems Problem Noted Date Diagnosed Date 14 weeks gestation of ([facility]) 2024 Estimated Date of Delivery Comme nts Yes 02/12/2025 Date entered librado or to episode creation Encounters Date Type Department Care Team Description 08/16/2024 Documentation [facility] [id number] [place] [place] [address] Lynsey Gilman MD 08/15/2024 10:45 AM EDT Clinical Support [facility] Emergency Medicine [address] [place] [address] 08/14/2024 10:25 PM EDT Clinical Support [facility] Emergency Medicine [address] [place] [address] 08/14/2024 10:14 PM EDT - 08/15/2024 9:40 PM EDT Hospital Encounter [facility]ly [facility] [address] [place] [address] Bronson, Joan MD Zeferino Ziegler Aaron D, MD Ragsdale, Ellie S, MD Yax, Justin A, DO Li, Jennifer S, MD 15 weeks gestation of ([facility]) (Primary Dx); Nausea and vomiting, unspecified vomiting type; Chest pain, unspecified type Discharge Disposition: Home 08/14/2024 Travel 08/13/2024 1:40 PM EDT - 08/13/2024 11:59 PM EDT Hospital Encounter [address] [address] Discharge Disposition: Home 08/13/2024 9:17 AM EDT - 08/13/2024 11:52 AM EDT Emergency [facility] Emergency Medicine [address] [place] [phone] Milan Lerner DO Nausea and vomiting, unspecified vomiting type (Primary Dx) Discharge Disposition: Home 08/13/2024 Travel from Last 3 Months Social History Tobacco Use Types Packs/Day Years [...] No / Unsure 08/13/2024 9:26 AM EDT Last Filed Vital Signs Vital Sign Reading [...] Mass Index 18.72 08/14/2024 10:08 PM EDT Plan of Treatment Health Maintenance Due Date Last Done Comments HIV Screening 1995 Lipid Panel 1994 Yearly Adult Physical 1995 IPV Vaccines (2 of 3 - 4-dos e series) 07/06/1999 06/08/1999 Varicella Vaccines (2 of 2 - 13+ 2-dose series) 05/18/2010 04/20/2010 Hepatitis C Screening 2012 Hepatitis A Vaccines (2 of 2 - 2-dose series) 05/12/2014 11/12/2013, 04/20/2010 Hepatitis B Vaccines (3 of 3 - 19+ 3-dose series) 07/13/2014 05/18/2014, 03/30/2014, 11/12/2013 Cervical Cancer Screening 08/30/2015 HPV/Cotest 08/30/2015 Pap Smear 08/30/2015 DTaP/Tdap/Td Vaccines (3 - T d or Tdap) 05/29/2018 05/29/2008, 06/08/1999 COVID-19 Vaccine ( - 2023-2 5 season) 2023 Influenza Vaccine (Season Ended) 2024 12/06/2015, 12/31/2012 RSV High Risk: (Elderly (60+ ) or Population) (1 - Risk 1-dose series) 12/18/2024 Zoster Vaccines (1 of 2) 2044 04/20/2010 MMR Vaccines Completed 06/08/1999 HPV Vaccines Completed 12/13/2006, 08/13/2006, 06/13/2006 Meningococcal Vaccine Aged Out 05/29/2008 No santana jhoan eligible based on patient's age to complete this topic HIB Vaccines Aged Out No longer eligi ble based on patient's age to complete this topic Pneumococcal Vaccine: Pediatrics and At-Risk Adult Patients Aged Out No longer eligible b ased on patient's age to complete this topic Rotavirus Vaccines Aged Out No longer eligible based on patient's age to complete this topic Procedures Procedure Name Priority Date/Time Associated Diagnosis Comments C. TRACHOMATIS / N. GONORRHOEAE, AMPLIFIED, UROGENITAL Routine 08/15/2024 12:28 PM EDT TRANSTHORACIC ECHO (TTE) COMPLETE Priority Discharge or Observation 08/15/2024 11:53 AM EDT Chest pain, unspecified type ECG 12-LEAD STAT 08/15/2024 10:42 AM EDT BETA HYDROXYBUTYRATE Routine 08/15/2024 5:22 AM EDT BASIC METABOLIC PANEL Routine 08/15/2024 5:22 AM EDT MAGNESIUM Routine 08/15/2024 5:22 AM EDT XR ABDOMEN 1 VIEW STAT 08/15/2024 4:5 9 AM EDT US OB LIMITED 1+ FETUSES STAT 08/15/2024 2:14 AM EDT POCT , URINE STAT 08/15/2024 12:43 AM EDT URINALYSIS MICROSCOPIC WITH REFLEX CULTURE STAT 08/15/2024 12:39 AM EDT DRUG SCREEN,URINE Add-On 08/15/2024 12:39 AM EDT EXTRA URINE DORAN TUBE STAT 08/15/2024 12:39 AM EDT URINALYSIS WITH REFLEX MICROSCOPIC AND CULTURE STAT 08/15/2024 12:39 AM EDT URINALYSIS WITH REFLEX MICROSCOPIC AND CULTURE STAT 08/15/2024 12:39 AM EDT HUMAN CHORIONIC GONADOTROPIN, SERUM QUANTITATIVE STAT 08/15/2024 12:25 AM EDT BETA HYDROXYBUTYRATE STAT 08/14/2024 11:23 PM EDT BLOOD GAS VENOUS FULL PANEL STAT 08/14/2024 11:23 PM EDT TROPONIN I, HIGH SENSITIVITY STAT 08/14/2024 11:23 PM EDT LIPASE STAT 08/14/2024 11:23 PM EDT COMPREHENSIVE METABOLIC PANEL STAT 08/14/2024 11:23 PM EDT CBC WITH AUTO DIFFERENTIAL STAT 08/14/2024 11:23 PM EDT ECG 12-LEAD STAT 08/14/2024 10:21 PM EDT ECG 12-LEAD STAT 08/13/2024 1:40 PM EDT XR CHEST 1 VIEW STAT 08/13/2024 10:38 AM EDT URINALYSIS MICROSCOPIC WITH REFLEX CULTURE STAT 08/13/2024 10:07 AM EDT EXTRA URINE DORAN TUBE STAT 08/13/2024 10:07 AM EDT URINALYSIS WITH REFLEX MICROSCOPIC AND CULTURE STAT 08/13/2024 10:07 AM EDT URINALYSIS WITH REFLEX MICROSCOPIC AND CULTURE STAT 08/13/2024 10:07 AM EDT LIPASE STAT 08/13/2024 9:34 AM EDT COMPREHENSIVE METABOLIC PANEL STAT 08/13/2024 9:34 AM EDT MAGNESIUM STAT 08/13/2024 9:34 AM EDT CBC WITH AUTO DIFFERENTIAL STAT 08/13/2024 9:34 AM EDT from Last 3 Months Results * C. trachomatis / N. gonorrhoeae, Amplified, Urogenital (08/15/2024 12:28 PM EDT) Neisseria gonorrhea,Ampl ified Negative Negative POLYMERASE CHAIN REACTION 08/15/2024 5:57 PM EDT [facility] Chlamydia trachomatis, Amplified Negative Negative POLYMERASE CHAIN REACTION 08/15/2024 5:57 PM EDT [facility] Urine Specimen from urethra / Unknown 08/15/2024 12:28 PM EDT 08/15/2024 1:11 PM EDT Narrative [facility] - 08/15/2024 5:57 PM EDT The [...] LAB MOLECULAR DIAGNOSTICS ARISTIDES FRANCOIS Final Result [facility] [address] [place] [address] * TRANSTHORACIC ECHO (TTE) COMPLETE (08/15/2024 11:53 [...] Narrative SYNGO - 08/15/2024 12:27 PM EDT [facility], [address] [place] [address] and TRANSTHORACIC ECHOCARDIOGRAM REPORT Patient Name: SUE JAMEEL Dorsey Physician: [id number] Zuleyka Gibbons MD Study Date: 08/15/2024 Ordering Provider: [id number] LENKA MCGARRY MRN/PID: [id number] Fellow: Nurse: Date of /Age: 6 1995 / 28 [employer] Machine Tender: Isabella Tavarez years RDCS, RVT Gender assigned at F Additional Staff: : Height: 167.64 cm Admit Date: Weight: 52.62 kg Admission Status: Inpatient - Priority discharge BSA / BMI: 1.59 m2 / 18.72 kg/m2 Blood Pressure: 127/64 mmHg Department Location: [facility] Non Invasive Study Type: TRANSTHORACIC ECHO (TTE) COMPLETE Diagnosis/ICD: Chest pain, unspecified-R07.9 Indication: Chest pain. CPT Code: Echo Complete w Full Doppler-[id number] Patient History: Pertinent History: 14 weeks . [...] LA Area A4C: 13.0 cm2 LA [place] A4C: 4.0 cm RIGHT ATRIUM: Normal Ranges: [...] Kai: 0.94 PulmV Sys Kai: 71.25 cm/s [id number] Zuleyka Gibbons MD Electronically signed on 08/15/2024 at 12:27:54 PM Final Procedure Note Zuleyka Gibbons MD - 08/15/2024 [facility], [address] [place] [address] and TRANSTHORACIC ECHOCARDIOGRAM REPORT Patient Name: SUE JORGENSEN Sunita Physician: [id number] Gibbons MD Study Date: 08/15/2024 Ordering Provider: [id number] MCGARRY MRN/PID: [id number] Fellow: Nurse: Date of /Age: 6 1995 Rodding Machine Tender: Kwasi nelson RDCS, RVT Gender assigned at F Additional Staff: : Height: 167.64 cm Admit Date: Weight: 52.62 kg Admission Status: Inpatient- Priority discharge BSA / BMI: 1.59 m2 / 18.72 kg/m2 Blood Pressure: 127/64 mmHg Department Location: [facility] Study Type: TRANSTHORACIC ECHO (TTE) COMPLETE Diagnosis/ICD: Chest pain, unspecified-R07.9 Indication: Chest pain. CPT Code: Echo Complete w Full Doppler-[id number] Patient History: Pertinent History: 14 weeks . [...] LA Area A4C: 13.0 cm2 [place] A4C: 4.0 cm RIGHT ATRIUM: Normal Ranges: [...] Kai: 0.94 PulmV Sys Kai: 71.25 cm/s [id number] Zuleyka Gibbons MD Electronically signed on 08/15/2024 at 12:27:54 PM Final us Lenka Mcgarry MD CV ECHO PROCEDURES Final Resul t SYNGO * ECG 12 lead (08/15/2024 10:42 AM EDT) Only the most recent of3 resultswithin the time period is included. Ventricular Rate 70 BPM MUSE Atrial Rate 70 BPM MUSE MD Interval 126 ms MUSE QRS Duration 72 ms MUSE QT Interval 386 ms MUSE QTC Calculation(Baze tt) 416 ms MUSE P [place] 77 degrees MUSE R [place] 88 degrees MUSE T [place] 62 degrees MUSE QRS Count 12 beats [...] and clinical correlation Confirmed by Baylee Pizano ([id number]) on 08/17/2024 6:01:46 AM Procedure Note Baylee Pizano APRN-INVESTOR RELATIONS SPECIALIST - 08/17/2024 Normal sinus rhythm Normal ECG When compared with ECG of 14-AUG-2024 22:14, No significant change was found See ED provider note for full interpretation and clinical correlation Confirmed by Baylee Pizano ([id number]) on 08/17/2024 6:01:46 AM us Marek Nelson DO ECG ORDERABLES Final Result Performing Organization Address City/[facility]/ZIP Co de Phone Number MUSE * Beta Hydroxybutyrate (08/15/2024 5:22 AM EDT) Only the most recent of2 resultswithin the time period is included. Pathologist [facility] Beta-Hydroxybu tyrate 0.11 0.02 - 0.27 mmol/L LAB CHEMISTRY METHOD 08/15/2024 6:32 AM EDT [facility] Blood Venous blood specimen / Unknown Venipuncture / Unknown 08/15/2024 5:22 AM EDT 08/15/2024 5:54 AM EDT Narrative [facility] - 08/15/2024 6:32 AM EDT The beta-hydroxybutyrate test performance characteristics have been validated by [facility]. This test has not been approved by the FDA; however such approval is not necessary. Lenka Mcgarry MD LAB BLOOD ORDERABLES Final Res ult Performing Organization Address [facility] Co de Phone Number [facility] [id number] [place], [place] [id number] * Magnesium (08/15/2024 5:22 AM EDT) Only the most recent of2 resultswithin the time period is included. [facility] Magnesium 1.83 1.60 - 2.40 mg/dL LAB CHEMISTRY METHOD 08/15/2024 6:32 AM EDT [facility] Blood Venous blood specimen / Unknown Venipuncture / Unknown 08/15/2024 5:22 AM EDT 08/15/2024 5:54 AM EDT Lenka Mcgarry MD LAB BLOOD ORDERABLES Final Res ult Performing Organization Address [facility] Co de Phone Number [facility] [id number] [place] [phone] * (ABNORMAL) Basic metabolic panel (08/15/2024 5:22 AM EDT) [facility] Glucose 137(H) 74 - 99 mg/dL LAB CHEMISTRY METHOD 08/15/2024 6:32 AM EDT [facility] Sodium 133(L) 136 - 145 mmol/L LAB CHEMISTRY METHOD 08/15/2024 6:32 AM EDT [facility] Potassium 3.6 3.5 - 5.3 mmol/L LAB CHEMISTRY METHOD 08/15/2024 6:32 AM EDT [facility] Chloride 101 98 - 107 mmol/L LAB CHEMISTRY METHOD 08/15/2024 6:32 AM EDT [facility] Bicarbonate 23 21 - 32 mmol/L LAB CHEMISTRY METHOD 08/15/2024 6:32 AM EDT [facility] Anion Gap 13 10 - 20 mmol/L LAB CHEMISTRY METHOD 08/15/2024 6:32 AM EDT [facility] Urea Nitrogen 12 6 - 23 mg/dL LAB CHEMISTRY METHOD 08/15/2024 6:32 AM EDT [facility] Creatinine 0.54 0.50 - 1.05 mg/dL LAB CHEMISTRY METHOD 08/15/2024 6:32 AM EDT [facility] eGFR >90 >60 mL/min/1. 73m*2 LAB CHEMISTRY METHOD 08/15/2024 6:32 AM EDT [facility] Comment: Calculations of estimated GFR are performed using the 2020 CKD-EPI Study Refit equation without the race variable for the IDMS-Traceable creatinine methods. https://jasn.asnjournals.org/content//ASN.5492575072 Calcium 8.8 8.6 - 10.6 mg/dL LAB CHEMISTRY METHOD 08/15/2024 6:32 AM EDT [facility] Blood Venous blood specimen / Unknown Venipuncture / Unknown 08/15/2024 5:22 AM EDT 08/15/2024 5:54 AM EDT us Lenka Mcgarry MD LAB BLOOD ORDERABLES Final Res ult [facility] [address] [place] [address] * XR abdomen 1 view (08/15/2024 4:59 AM EDT) Anatomical Region Laterality Modality Thoracic, Abdomen Computed Radio graphy 08/15/2024 5:05 AM EDT 08/15/2024 6:42 AM EDT Impressions 08/15/2024 6:40 AM EDT Nonobstructive bowel gas pattern. I personally reviewed the images/study and I agree with the findings as stated by Dr. Cesar Jordan. MACRO: none Signed by: Dennis Bobby 08/15/2024 6:40 AM Dictation workstation: [id number] Narrative 08/15/2024 6:40 AM EDT Interpreted By: Dennis Bobby and Ohs Zachary STUDY: XR ABDOMEN 1 VIEW; 08/15/2024 4:59 am INDICATION: Signs/Symptoms:abdominal pain. COMPARISON: None. ACCESSION NUMBER(S): [id number] ORDERING CLINICIAN: LENKA MCGARRY FINDINGS: There is a nonobstructive bowel gas pattern. No extraluminal or portal venous gas. Visualized soft tissues and osseous structures are unremarkable. The lung bases are clear. Procedure Note Dennis Bobby MD - 08/15/2024 Interpreted By: Dennis Bobby and Ohs Zachary STUDY: XR ABDOMEN 1 VIEW; 08/15/2024 4:59 am INDICATION: Signs/Symptoms:abdominal pain. COMPARISON: None. ACCESSION NUMBER(S): [id number] ORDERING CLINICIAN: LENKA MCGARRY FINDINGS: There is [...] Dennis Bobby 08/15/2024 6:40 AM Dictation workstation: [id number] us Lenka Mcgarry MD IMG XR PROCEDURES [...] Leon Null 08/15/2024 2:58 AM Dictation workstation: [id number] Narrative 08/15/2024 2:58 AM EDT Interpreted By: Leon Null and Dervishi Mario STUDY: US OB LIMITED 1+ FETUSES; 08/15/2024 2:14 am INDICATION: Signs/Symptoms:abdominal and chest pain during . COMPARISON: None. ACCESSION NUMBER(S): [id number] ORDERING CLINICIAN: DEREJE SPARROW TECHNIQUE: Multiple images [...] pain during . COMPARISON: None. ACCESSION NUMBER(S): [id number] ORDERING CLINICIAN: DEREJE SPARROW TECHNIQUE: Multiple images [...] Leon Null 08/15/2024 2:58 AM Dictation workstation: [id number] us Dereje Sparrow PA-C IMG OB US PROCEDURES Fin al Result * (ABNORMAL) POCT , urine (08/15/2024 12:43 AM EDT) Preg Test, Ur Positive(A ) Urine 08/15/2024 12:4 3 AM EDT us Dereje Sparrow PA-C POINT OF CARE TEST ENTER /EDIT ORDERABLES Final Result * Extra Urine Doran Tube (08/15/2024 12:39 AM EDT) Only the most recent of2 resultswithin the time period is included. Pathologist [facility] Extra Tube Hold for add-ons. 08/15/2024 11:01 AM EDT [facility] Comment:Auto resulted. Urine Urine specimen / Unknown 08/15/2024 12:39 AM EDT 08/15/2024 12:56 AM EDT Dereje Sparrow PA-C LAB URINE ORDERABLES Fin al Result Performing Organization Address [facility] Co de Phone Number [facility] [address] [place] [phone] * (ABNORMAL) Urinalysis Microscopic (08/15/2024 12:39 AM EDT) Only the most recent of2 resultswithin the time period is included. WBC, Urine 6-10(A) 1-5, NONE /HPF 08/15/2024 1:49 AM EDT [facility] RBC, Urine 3-5 NONE, 1-2, 3-5 /HPF 08/15/2024 1:49 AM EDT [facility] Squamous Epithelial Cells, Urine 1-9 (SPARSE) Reference range not established. /HPF 08/15/2024 1:49 AM EDT [facility] Mucus, Urine 3+ Reference range not established. /LPF 08/15/2024 1:49 AM EDT [facility] Urine Urine specimen / Unknown 08/15/2024 12:39 AM EDT 08/15/2024 12:56 AM EDT Dereje GOMEZ-C LAB URINE ORDERABLES Fin al Result Performing Organization Address [facility] Co de Phone Number [facility] [address] [place] [phone] * (ABNORMAL) Drug Screen, Urine (08/15/2024 12:39 AM EDT) [facility] Amphetamine Screen, Urine Presumptive Negative Presumptive Negative LAB CHEMISTRY METHOD 4:40 AM [facility] Comment: CUTOFF LEVEL: 500 NG/ML Cross-reactivity has been reported with high concentrations of the following drugs: buproprion, chloroquine, chlorpromazine, ephedrine, mephentermine, fenfluramine, phentermine, phenylpropanolamine, pseudoephedrine, and propranolol. Barbiturate Screen, Urine Presumptive Negative Presumptive Negative LAB CHEMISTRY METHOD 4:40 AM [facility] Comment:CUTOFF LEVEL: 200 NG /ML Benzodiazepines Screen, Urine Presumptive Negative Presumptive Negative LAB CHEMISTRY METHOD 4:40 AM [facility] Comment:CUTOFF LEVEL: 200 NG /ML Cannabinoid Screen, Urine Presumptive Positive(A) Presumptive Negative LAB CHEMISTRY METHOD 4:40 AM [facility] Comment:CUTOFF LEVEL: 50 NG/ ML Cocaine Metabolite Screen, Urine Presumptive Negative Presumptive Negative LAB CHEMISTRY METHOD 4:40 AM [facility] Comment:CUTOFF LEVEL: 150 NG /ML Fentanyl Screen, Urine Presumptive Negative Presumptive Negative LAB CHEMISTRY METHOD 4:40 AM [facility] Comment:CUTOFF LEVEL: 5 NG/M L Opiate Screen, Urine Presumptive Positive(A) Presumptive Negative LAB CHEMISTRY METHOD 4:40 AM [facility] Comment: CUTOFF LEVEL: 300 NG/ML The opiate screen does not detect fentanyl, meperidine, or tramadol. Oxycodone is not consistently detected (refer to Oxycodone Screen, Urine result). Oxycodone Screen, Urine Presumptive Negative Presumptive Negative LAB CHEMISTRY METHOD 4:40 AM [facility] Comment: CUTOFF LEVEL: 100 NG/ML This test will accurately detect both oxycodone and oxymorphone. PCP Screen, Urine Presumptive Negative Presumptive Negative LAB CHEMISTRY METHOD 4:40 AM [facility] Comment: CUTOFF LEVEL: 25 NG/ML Cross-reactivity has been reported with dextromethorphan. Methadone Screen, Urine Presumptive Negative Presumptive Negative LAB CHEMISTRY METHOD 06/13/202 5 4:40 AM EDT [facility] Comment: CUTOFF LEVEL: 150 NG/ML The metabolite [id number] (LAAM) is not detected by this method in concentrations that would be found in the urine of patients on LAAM therapy. Urine Urine specimen / Unknown 08/15/2024 12:39 AM EDT 08/15/2024 12:56 AM EDT Narrative [facility] - 08/15/2024 4:40 AM EDT Drug screen results are presumptive and should not be used to assess compliance with prescribed medication. Contact the performing [facility] laboratory to add-on definitive confirmatory testing [...] MD LAB URINE ORDERABLES Final Res ult [facility] [id number] [place], [place] [phone] * (ABNORMAL) Urinalysis with Reflex Culture and Microscopic (08/15/2024 12:39 AM EDT) Only the most recent of2 resultswithin the time period is included. Color, Urine Yellow Light-Yellow , Yellow, Dark-Yellow 08/15/2024 1:49 AM EDT [facility] Appearance, Urine Clear Clear 08/15/2024 1:49 AM EDT [facility] Specific [place], Urine 1.023 1.005 - 1.035 08/15/2024 1:49 AM EDT [facility] pH, Urine 6.0 5.0, 5.5, 6.0, 6.5, 7.0, 7.5, 8.0 08/15/2024 1:49 AM EDT [facility] Protein, Urine 20 (TRACE) NEGATIVE, 10 (TRACE), 20 (TRACE) mg/dL 08/15/2024 1:49 AM EDT [facility] Glucose, Urine Normal Normal mg/dL 08/15/2024 1:49 AM EDT [facility] Blood, Urine NEGATIVE NEGATIVE mg/dL 08/15/2024 1:49 AM EDT [facility] Ketones, Urine 40 (2+)(A) NEGATIVE mg/dL 08/15/2024 1:49 AM EDT [facility] Bilirubin, Urine NEGATIVE NEGATIVE mg/dL 08/15/2024 1:49 AM EDT [facility] Urobilinogen, Urine Normal Normal mg/dL 08/15/2024 1:49 AM EDT [facility] Nitrite, Urine NEGATIVE NEGATIVE 08/15/2024 1:49 AM EDT [facility] Leukocyte Esterase, Urine NEGATIVE NEGATIVE 08/15/2024 1:49 AM EDT [facility] Urine Urine specimen / Unknown 08/15/2024 12:39 AM EDT 08/15/2024 12:56 AM EDT us Dereje Sparrow PA-C LAB URINE ORDERABLES Fin al Result [facility] [address] [place] [address] * (ABNORMAL) Human Chorionic Gonadotropin, Serum Quantitative (08/15/2024 12:25 AM EDT) HCG, Beta-Quantitati ve 41,624(H) <5 mIU/mL LAB IMMUNOASSAY METHOD 08/15/2024 1:38 AM EDT [facility] Comment:Low-level positive H CG results can [...] AM EDT 08/15/2024 12:49 AM EDT Narrative [facility] - 08/15/2024 1:38 AM EDT Total HCG measurement is performed using the Siemens Atellica immunoassay which detects intact HCG and free beta HCG subunit. This test is not indicated for use as a tumor marker. HCG testing is performed using a different test methodology at [facility] than other [facility]. Direct result comparison should only be made within the same method. us Dereje Sparrow PA-C LAB BLOOD ORDERABLES Fin al Result [facility] [address] [address] [place] [phone] * (ABNORMAL) CBC and Auto Differential (08/14/2024 11:23 PM EDT) Only the most recent of2 resultswithin the time period is included. WBC 12.9(H) 4.4 - 11.3 x10*3/uL LAB HEMATOLOGY METHOD 08/15/2024 12:17 AM EDT [facility] nRBC 0.0 0.0 - 0.0 /100 WBCs LAB HEMATOLOGY METHOD 08/15/2024 12:17 AM EDT [facility] RBC 3.68(L) 4.00 - 5.20 x10*6/uL LAB HEMATOLOGY METHOD 08/15/2024 12:17 AM EDT [facility] Hemoglobin 10.9(L) 12.0 - 16.0 g/dL LAB HEMATOLOGY METHOD 08/15/2024 12:17 AM EDT [facility] Hematocrit 30.4(L) 36.0 - 46.0 % LAB HEMATOLOGY METHOD 08/15/2024 12:17 AM EDT [facility] 83 80 - 100 fL LAB HEMATOLOGY METHOD 08/15/2024 12:17 AM EDT [facility] MCH 29.6 26.0 - 34.0 pg LAB HEMATOLOGY METHOD 08/15/2024 12:17 AM EDT [facility] MCHC 35.9 32.0 - 36.0 g/dL LAB HEMATOLOGY METHOD 08/15/2024 12:17 AM EDT [facility] RDW 14.3 11.5 - 14.5 % LAB HEMATOLOGY METHOD 08/15/2024 12:17 AM EDT [facility] Platelets 251 150 - 450 x10*3/uL LAB HEMATOLOGY METHOD 08/15/2024 12:17 AM T [facility] Neutrophils % 83.6 40.0 - 80.0 % LAB HEMATOLOGY METHOD 08/15/2024 12:17 AM EDT [facility] Immature Granulocytes %, Automated 0.6 0.0 - 0.9 % LAB HEMATOLOGY METHOD 08/15/2024 12:17 AM EDT [facility] Comment:Immature Granulocyte Count (IG) includes promyelocytes, myelocytes and metamyelocytes but does not include bands. Percent differential counts (%) should be interpreted in the context of the absolute cell counts (cells/UL). Lymphocytes % 10.8 13.0 - 44.0 % LAB HEMATOLOGY METHOD 08/15/2024 12:17 AM EDT [facility] Monocytes % 4.8 2.0 - 10.0 % LAB HEMATOLOGY METHOD 08/15/2024 12:17 AM EDT [facility] Eosinophils % 0.0 0.0 - 6.0 % LAB HEMATOLOGY METHOD 08/15/2024 12:17 AM EDT [facility] Basophils % 0.2 0.0 - 2.0 % LAB [facility] Neut[facility]ils Absolute 10.80(H) 1.20 - 7.70 x10*3/uL LAB HEMATOLOGY METHOD 08/15/2024 12:17 AM EDT [facility] Comment:Percent differential counts (%) should be interpreted in the context of the absolute cell counts (cells/uL). Immature Granulocytes Absolute, Automated 0.08 0.00 - 0.70 x10*3/uL LAB HEMATOLOGY METHOD 08/15/2024 12:17 AM EDT [facility] Lymphocytes Absolute 1.39 1.20 - 4.80 x10*3/uL LAB HEMATOLOGY METHOD 08/15/2024 12:17 AM EDT [facility] Monocytes Absolute 0.62 0.10 - 1.00 x10*3/uL LAB HEMATOLOGY METHOD 08/15/2024 12:17 AM EDT [facility] Eosinophils Absolute 0.00 0.00 - 0.70 x10*3/uL LAB HEMATOLOGY METHOD 08/15/2024 12:17 AM EDT [facility] Basophils Absolute 0.02 0.00 - 0.10 x10*3/uL LAB HEMATOLOGY METHOD 08/15/2024 12:17 AM EDT [facility] Blood Venous blood specimen / Unknown Venipuncture / Unknown 08/14/2024 11:23 PM EDT 08/15/2024 12:09 AM EDT Dereje Sparrow PA-C LAB BLOOD ORDERABLES Fin al Result [facility] [address] [address] [place] [id number] * Troponin I, High Sensitivity (08/14/2024 11:23 PM EDT) [facility] Troponin I, High Sensitivity (CMC) <3 0 - 34 ng/L LAB IMMUNOASSAY METHOD 08/15/2024 12:36 AM EDT [facility] Blood Venous blood specimen / Unknown Venipuncture / Unknown 08/14/2024 11:23 PM EDT 08/15/2024 12:09 AM EDT Narrative [facility] - 08/15/2024 12:36 AM EDT Less [...] performed using a different testing methodology at [facility] than at other [facility]. Direct result comparisons should only be made within the same method. us Dereje N Bisi PA-C LAB BLOOD ORDERABLES Fin al Result [facility] [address] [address] [place] [address] * (ABNORMAL) Blood Gas Venous Full Panel (08/14/2024 11:23 PM EDT) POCT pH, Venous 7.48(H) 7.33 - 7.43 pH 08/14/2024 11:24 PM EDT [facility] POCT pCO2, Venous 36(L) 41 - 51 mm Hg 08/14/2024 11:24 PM EDT [facility] POCT pO2, Venous 86(H) 35 - 45 mm Hg 08/14/2024 11:24 PM EDT [facility] POCT SO2, Venous 98(H) 45 - 75 % 08/15/19 11:24 PM EDT [facility] POCT Oxy Hemoglobin, Venous 94.8(H) 45.0 - 75.0 % 08/14/2024 11:24 PM EDT [facility] POCT Hematocrit Calculated, Venous 35.0(L) 36.0 - 46.0 % 08/14/2024 11:24 PM EDT [facility] POCT Sodium, Venous 134(L) 136 - 145 mmol/L 08/14/2024 11:24 PM EDT [facility] POCT Potassium, Venous 3.4(L) 3.5 - 5.3 mmol/L 08/14/2024 11:24 PM EDT [facility] POCT Chloride, Venous 103 98 - 107 mmol/L 08/14/2024 11:24 PM EDT [facility] POCT Ionized Calicum, Venous 1.22 1.10 - 1.33 mmol/L 08/14/2024 11:24 PM EDT [facility] POCT Glucose, Venous 108(H) 74 - 99 mg/dL 08/14/2024 11:24 PM EDT [facility] POCT Lactate, Venous 0.7 0.4 - 2.0 mmol/L 08/14/2024 11:24 PM EDT [facility] POCT Base Excess, Venous 3.3(H) -2.0 - 3.0 mmol/L 08/14/2024 11:24 PM EDT [facility] POCT HCO3 Calculated, Venous 26.8(H) 22.0 - 26.0 mmol/L 08/14/2024 11:24 PM EDT [facility] POCT Hemoglobin, Venous 11.5(L) 12.0 - 16.0 g/dL 08/14/2024 11:24 PM EDT [facility] POCT Anion Gap, Venous 8.0(L) 10.0 - 25.0 mmol/L 08/14/2024 11:24 PM EDT [facility] Patient Temperature 37.0 degrees Celsius 08/14/2024 11:24 PM EDT [facility] FiO2 21 % 08/14/2024 11:24 PM EDT [facility] Blood Venous blood specimen / Unknown Venipuncture / Unknown 08/14/2024 11:23 PM EDT 08/14/2024 11:23 PM EDT [employer] GOMEZ-C LAB BLOOD ORDERABLES Fin al Result Performing Organization Address [facility] de Phone Number [facility] [address] [place] [address] * Lipase (08/14/2024 11:23 PM EDT) Only the most recent of2 resultswithin the time period is included. Lipase 16 9 - 82 U/L LAB CHEMISTRY METHOD 08/15/2024 12:36 AM EDT [facility] Blood Venous blood specimen / Unknown Venipuncture / Unknown 08/14/2024 11:23 PM EDT 08/15/2024 12:09 AM EDT Narrative [facility] - 08/15/2024 12:36 AM EDT Venipuncture immediately after or during the administration of Metamizole may lead to falsely low results. Testing should be performed immediately prior to Metamizole dosing. [employer] PA-C LAB BLOOD ORDERABLES Fin al Result Performing Organization Address City/[facility]/ZIP Co de Phone Number [facility] [address] [place] [id number] * (ABNORMAL) Comprehensive metabolic panel (08/14/2024 11:23 PM EDT) Only the most recent of2 resultswithin the time period is included. [facility] Glucose 107(H) 74 - 99 mg/dL LAB CHEMISTRY METHOD 08/15/2024 12:36 AM EDT [facility] Sodium 136 136 - 145 mmol/L LAB CHEMISTRY METHOD 08/15/2024 12:36 AM EDT [facility] Potassium 3.3(L) 3.5 - 5.3 mmol/L LAB CHEMISTRY METHOD 08/15/2024 12:36 AM EDT [facility] Chloride 103 98 - 107 mmol/L LAB CHEMISTRY METHOD 08/15/2024 12:36 AM EDT [facility] Bicarbonate 25 21 - 32 mmol/L LAB CHEMISTRY METHOD 08/15/2024 12:36 AM EDT [facility] Anion Gap 11 10 - 20 mmol/L LAB CHEMISTRY METHOD 08/15/2024 12:36 AM EDT [facility] Urea Nitrogen 10 6 - 23 mg/dL LAB CHEMISTRY METHOD 08/15/2024 12:36 AM EDT [facility] Creatinine 0.46(L) 0.50 - 1.05 mg/dL LAB CHEMISTRY METHOD 08/15/2024 12:36 AM EDT [facility] eGFR >90 >60 mL/min/1. 73m*2 LAB CHEMISTRY METHOD 08/15/2024 12:36 AM EDT [facility] Comment: Calculations of estimated GFR are performed using the 2020 CKD-EPI Study Refit equation without the race variable for the IDMS-Traceable creatinine methods. https://jasn.asnjournals.org/content/early//ASN.5220450277 Calcium 9.0 8.6 - 10.6 mg/dL LAB CHEMISTRY METHOD 08/15/2024 12:36 AM EDT [facility] Albumin 3.6 3.4 - 5.0 g/dL LAB CHEMISTRY METHOD 08/15/2024 12:36 AM EDT [facility] Alkaline Phosphatase 35 33 - 110 U/L LAB CHEMISTRY METHOD 08/15/2024 12:36 AM EDT [facility] Total Protein 5.8(L) 6.4 - 8.2 g/dL LAB CHEMISTRY METHOD 08/15/2024 12:36 AM EDT [facility] AST 11 9 - 39 U/L LAB CHEMISTRY METHOD 08/15/2024 12:36 AM EDT [facility] Bilirubin, Total 0.4 0.0 - 1.2 mg/dL LAB CHEMISTRY METHOD 08/15/2024 12:36 AM EDT [facility] ALT 14 7 - 45 U/L LAB CHEMISTRY METHOD 08/15/2024 12:36 AM EDT [facility] Comment:Patients treated wit h Sulfasalazine may generate falsely decreased results for ALT. Blood Venous blood specimen / Unknown Venipuncture / Unknown 08/14/2024 11:23 PM EDT 08/15/2024 12:09 AM EDT us Dereje Sparrow PA-C LAB BLOOD ORDERABLES Fin al Result Performing Organization Address City/State/[facility] Co de Phone Number [facility] [id number] [place] [address] * XR chest 1 view (08/13/2024 10:38 AM EDT) Anatomical Region Laterality Modality Thoracic, Chest Computed Radiogr aphy 08/13/2024 10:4 1 AM EDT 08/13/2024 10:41 AM EDT Impressions 08/13/2024 10:40 AM EDT No evidence of acute cardiopulmonary process. Signed by: Michelle Min 08/13/2024 10:40 AM Dictation workstation: [id number] Narrative 08/13/2024 10:40 AM EDT Interpreted By: Michelle Min, STUDY: XR CHEST 1 VIEW; 08/13/2024 10:38 am INDICATION: Signs/Symptoms:chest pressure after vomiting. COMPARISON: None. ACCESSION NUMBER(S): [id number] ORDERING CLINICIAN: MILAN LERNER FINDINGS: AP radiograph [...] pressure after vomiting. COMPARISON: None. ACCESSION NUMBER(S): [id number] ORDERING CLINICIAN: MILAN LERNER FINDINGS: AP radiograph of the chest was provided. CARDIOMEDIASTINAL SILHOUETTE: Cardiomediastinal silhouette is normal in size and configuration. LUNGS: No consolidation, pulmonary edema, pleural effusion, or pneumothorax. ABDOMEN: No remarkable upper abdominal findings. BONES: No acute osseous changes. IMPRESSION: No evidence of acute cardiopulmonary process. Signed by: Michelle Min 08/13/2024 10:40 AM Dictation workstation: [id number] Milan Lerner DO IMG XR PROCEDURES Final R esult from Last 3 Months Insurance Advance Directives For more information, please contact: [phone] (Available ) * Full Code (Latest Code Status on File) Date Activated Date Inactivated Comments 08/15/2024 3:05 AM Question Answer Comments Plan of Care: Code Status Discussion Not Compl eted Decision Maker: Provider Rationale: Patient condition does not warra nt discussion Care Teams Synchronous Motor Assembler Relationship Specialty Start Date End Date Joe Zuleta DO [address] [place] [address] PCP - General Family Medicine 08/13/24
--- OUTSIDE RECORDS SUMMARY | 2024-08-26 12:44 | XMS_ITS | Encounter Summary ---
Author Organization [facility] Address [address] [facility] [place] [address] Care Team Providers Care Heavy Truck Driver Name Role Phone Carolyne Edmonds MD Primary Care Provider [phone] Encounter Details Date Type Department Care Team (Late st Contact Info) Description 02/18/2024 Clinisync Result Encounter [facility] External Department Unsolicited [...] How often do you attend chur or mandaen services? Never 02/15/2024 Do you belong to any clubs o r organizations such as jainism groups, unions, fraternal or athletic groups, or [...] and heating? Not hard at all 02/15/2024 [facility] - Occupational Stress Questionnaire Answer Date [...] any time in the past 12 m [facility], were you homeless or living in a jail (including now)? No 02/15/2024 Comments No Sex [...] EDT Routine [facility] BCP OB [address] [place] [address] Uriel Meade, DO [address] [place] [address] documented as of this encounter Procedures Procedure Name Priority Date/Time Associated Diagnosis Comments IR CATHETERIZATION AND INTRODUCTION FOR SONOHYSTEROGRAPHY CHARGE 02/18/2024 3:58 PM EST documented in this encounter Results * IR catheterization and introduction for sonohysterography (02/18/2024 3:58 PM EST) Anatomical Region Laterality Modality Radiographic Rachel ging 02/18/2024 3:58 PM EST Narrative 02/18/2024 4:01 PM EST The [address] [address] Ultrasound Report Signed Patient: INDU ST MR#: [id number] : 1995 Acct:[id number] Age/Sex: 28 / F ADM Date: 02/18/24 Loc: US Attending Dr: Non-Staff Physician M.Carrie Ordering Physician: Physician,Non-Staff M.Carrie Date of Service: 02/18/24 Procedure(s): US Cath for Sonohysterography Accession Number(s): [id number] cc: CAROLYNE EDMONDS ; Physician,Non-Staff MDior The [address] [address] Patient Name: INDU ST MRN: [id number] date: 1995 Sex: F Assigned Patient Location: US Current Patient Location: US Accession/Order Number: [id number] Exam Date: 02/18/2024 14:40 Report Date: 02/18/2024 15:58 At the request of: NON-STAFF PHYSICIAN Procedure: US Cath for Sonohysterography EXAM: US sonohysterography, US Cath for Sonohysterography HISTORY: Procreative Management Testing COMPARISON: None. TECHNIQUE: Informed consent was obtained. Preprocedural ultrasound with measurements of follicles followed by insertion of a 5 Latvian hysterosalpingogram catheter and infusion of 30 cc of sterile saline. FINDINGS: Preprocedural images: No The uterus is normal in size, contour and echotexture measuring 9.4 x 4.1 x 5.6 cm, anteverted. The endometrium measures 4 mm, trilaminar appearance The right ovary measures 3.0 x 2.6 x 2.0 cm. Normal color flow. 6 follicles: 0.6 x 0.6 x 0.5 cm 0.7 x 0.6 x 0.5 cm 0.5 x 0.5 x 0.4 cm 0.7 x 0.5 x 0.5 cm 0.4 x 0.3 x 0.3 cm 0.4 x 0.4 x 0.3 cm The left ovary measures 2.7 x 2.2 x 1.9 cm. Normal color flow. 3 focal follicles: 1.3 x 1.2 x 1.1 cm 0.8 x 0.6 x 0.4 cm 0.5 x 0.5 x 0.5 cm Following the injection of sterile saline the endometrial cavity demonstrates normal morphology. The endometrial lining measures 0.9 mm anteriorly and 1 mm posteriorly. No filling defect or evidence of mass or polyp. US/US Cath for Sonohysterography IMPRESSION: Normal exam Electronically authenticated by: ROMY VIRGEN Date: 02/18/2024 15:58 Dictated By: Romy Virgen M.D. Signed By: 02/18/24 1601 DD/ 1558 TD/TT: Director Of Residence Life: Procedure Note Radiology, Radiologist, MD - 02/19/2024 [place] [address] Ultrasound Report Signed Patient: INDU ST LMR#: [id number] : 1995Acct:[id number] Age/Sex: 28 / FADM Date: 02/18/24 Loc: US Attending Dr: Non-Staff Physician Lizama Ordering Physician: Palmiar Sarah M.D. Date of Service: 02/18/24 Procedure(s): US Cath for Sonohysterography Accession Number(s): [id number] cc: CAROLYNE EDMONDS ; Physician,Non-Staff Alda The [address] [address] Patient Name: INDU ST MRN: [facility]:[id number] date: 1995 Sex: F Assigned Patient Location: US Current Patient Location: US Accession/Order Number: [id number] Exam Date: 02/18/2024 14:40 Report Date: 02/18/2024 15:58 At the request of: NON-STAFF PHYSICIAN Procedure: US Cath for Sonohysterography EXAM: US sonohysterography, US Cath for Sonohysterography HISTORY: Procreative Management Testing COMPARISON: None. TECHNIQUE: Informed consent was obtained. Preprocedural ultrasound with measurements of follicles followed by insertion of a 5 Latvian hysterosalpingogram catheter and infusion of 30 cc of sterile saline. FINDINGS: Preprocedural images: No The uterus is normal in size, contour and echotexture measuring 9.4 x 4.1x 5.6 cm, anteverted. The endometrium measures 4 mm, trilaminar appearance The right ovary measures 3.0 x 2.6 x 2.0 cm. Normal color flow. 6follicles: 0.6 x 0.6 x 0.5 cm 0.7 x 0.6 x 0.5 cm 0.5 x 0.5 x 0.4 cm 0.7 x 0.5 x 0.5 cm 0.4 x 0.3 x 0.3 cm 0.4 x 0.4 x 0.3 cm The left ovary measures 2.7 x 2.2 x 1.9 cm. Normal color flow. 3 focal follicles: 1.3 x 1.2 x 1.1 cm 0.8 x 0.6 x 0.4 cm 0.5 x 0.5 x 0.5 cm Following the injection of sterile saline the endometrial cavitydemonstrates normal morphology. The endometrial lining measures 0.9 mm anteriorly and 1mm posteriorly. No filling defect or evidence of mass or polyp. US/US Cath for Sonohysterography IMPRESSION: Normal exam Electronically authenticated by: ROMY Sargent: 02/18/2024 15:58 Dictated By: Romy Virgen M.D. Signed By:02/18/24 1601 DD/ 1558 TD/TT: Director Of Residence Life: us Generic External Data Provider IMG ASSOC PROCS F OR BILLING Final Result documented in this encounter Visit Diagnoses Not on filedocumented in this encounter Care Teams Heavy Truck Driver Relationship Specialty Start Date End Date Carolyne Edmonds MD [address] [place] [address] PCP - General Family Medicine 08/28/22 documented as of this encounter
--- OUTSIDE RECORDS SUMMARY | 2024-08-26 12:44 | XMS_ITS | Encounter Summary ---
Author Organization [facility] Address [address] [facility] [place] [address] Care Team Providers Care Flight Superintendent Name Role Phone Raleigh Collazo MD Primary Care Provider [phone] Encounter Details Date Type Department Care Team (Late Contact Info) Description 01/04/2024 Abstract [facility] BCP OB [address] [place] [address] Uriel Meade DO [facility] [place], [facility]11 Social History [...] Routine [facility] BCP OB [address] [place] [address] Uriel Meade DO [address] [place] [address] documented as of this encounter Visit Diagnoses Not on filedocumented in this encounter Care Teams Flight Superintendent Relationship Specialty Start Date End Date Raleigh Collazo MD [address] [place] [address] PCP - General Family Medicine 08/28/22 documented as of this encounter
--- OUTSIDE RECORDS SUMMARY | 2024-08-26 12:44 | XMS_ITS | Encounter Summary ---
Author Organization [facility] Address [address] [facility] [place] [address] Care Team Providers Care Cell Manager Name Role Phone Carolyne Edmonds MD Primary Care Provider [phone] Encounter Details Date Type Department Care Team [...] How often do you attend chur or quaker services? Never 02/15/2024 Do you belong to any clubs o r organizations such as rastafarian groups, unions, fraternal or athletic groups, or [...] and heating? Not hard at all 02/15/2024 [facility] - Occupational Stress Questionnaire Answer Date [...] any time in the past 12 m [facility], were you homeless or living in a fdc (including now)? No 02/15/2024 Comments No Sex [...] AM EDT Routine [facility] B[facility] OB [address] [place] [address] Halina, Uriel, DO [address] [place] [address] documented as of this encounter Procedures Procedure Name Priority Date/Time Associated Diagnosis Comments [facility] WRITTEN [place]IZATION Routine 02/18/2024 4:28 PM EST [facility] RF QUANT Routine 02/18/2024 4:28 PM EST [facility] JESUS INDIVIDUAL ABS Routine 02/18/20 4:28 PM EST SONOHYSTEROGRAPHY 02/18/2024 3:5 8 PM EST documented in this encounter Results * [facility] JESUS INDIVIDUAL ABS (02/18/2024 4:28 PM EST) ANTI-CENTRO B AB See Refr Report [facility] Blood 02/18/2024 4:28 PM EST 03/04/2024 7:26 AM EST Narrative [facility] - 03/04/2024 7:28 AM EST Original Ordering Provider: MD Carolyne Edmonds Carolyne LOPEZ Final Result [facility] * [facility] WRITTEN AUTHORIZATION (02/18/2024 4:28 PM EST) [facility] WRITTEN AUTHORIZATION Comment [facility] Comment: Written Authorization Received. Authorization received from ORIGINAL ORDER 02-20-2024 Logged by Valentina Peters Performed at: [address] [id number] PhD Randa Ochoa Blood 02/18/2024 4:28 PM EST 02/18/2024 6:35 PM EST Narrative [facility] - 02/21/2024 1:09 PM EST Original Ordering Provider: MD Carolyne Edmonds Carolyne LOPEZ Final Result Performing Organization Address City/[facility]/ZIP Co de Phone Number [facility] * [facility] RF QUANT (02/18/2024 4:28 PM EST) [facility] RHEUMATOID FACTOR:ACNC:PT:S ER/PLAS:QN: 13.2 <14.0 Internatio nal_Unit/m L [facility] Comment: Performed at: [facility] [id number] PhD Randa Ochoa Blood 02/18/2024 4:28 PM EST 02/18/2024 6:34 PM EST Narrative [facility] - 02/20/2024 6:07 AM EST Original Ordering Provider: MD Carolyne Edmonds Carolyne Edmonds MD [facility] Final Result Performing Organization Address [facility] Co de Phone Number [facility] * SONOHYSTEROGRAPHY (02/18/2024 3:58 PM EST) Anatomical Region Laterality Modality Radiographic Rachel ging 02/18/2024 3:58 PM EST Narrative 02/18/2024 4:01 [place] [address] Ultrasound Report Signed Patient: INDU ST MR#: [id number] : 1995 Acct:[id number] Age/Sex: 28 / F ADM Date: 02/18/24 Loc: US Attending Dr: DaciaStaff Physician Lizama Ordering Physician: Palmira Sarah M.D. Date of Service: 02/18/24 Procedure(s): US sonohysterography Accession Number(s): [id number] cc: CAROLYNE EDMONDS ; PhysicianPalmira M.D. The [place] [id number] Patient Name: INDU ST MRN: [id number] date: 1995 Sex: F Assigned Patient Location: [place] Current Patient Location: Accession/Order Number: [id number] Exam Date: 02/18/2024 14:40 Report Date: 02/18/2024 15:58 At the request of: NON-STAFF PHYSICIAN Procedure: US sonohysterography EXAM: US sonohysterography, US Cath for Sonohysterography HISTORY: Procreative Management Testing COMPARISON: None. TECHNIQUE: Informed consent was obtained. Preprocedural ultrasound with measurements of follicles followed by insertion of a 5 Bahraini hysterosalpingogram catheter and infusion of 30 cc [...] or evidence of mass or polyp. US/US sonohysterography IMPRESSION: Normal exam Electronically authenticated by: ROMY VIRGEN Date: 02/18/2024 15:58 Dictated By: Romy Virgen M.D. Signed By: 02/18/24 5146 DD/ 4351 TD/TT: Animal Nutrition Consultant: Procedure Note Radiology, Radiologist, MD - 02/19/[address] [address] Ultrasound Report Signed Patient: INDU ST LMR#: [id number] : 1995Acct:[id number] Age/Sex: 28 / FADM Date: 02/18/24 Loc: US Attending Dr: Non-Staff Physician Alda Ordering Physician: PhysicianDaciaStaff Alda Date of Service: 02/18/24 Procedure(s): US sonohysterography Accession Number(s): [id number] cc: CAROLYNE EDMONDS ; PhysicianLeila-Staff Alda The [address] [address] Patient Name: INDU ST MRN: [id number] date: 1995 Sex: F Assigned Patient Location: US Current Patient Location: US Accession/Order Number: [id number] Exam Date: 02/18/2024 14:40 Report Date: 02/18/2024 15:58 At the request of: NON-STAFF PHYSICIAN Procedure: US sonohysterography EXAM: US sonohysterography, US Cath for Sonohysterography HISTORY: Procreative Management Testing COMPARISON: None. TECHNIQUE: Informed consent was obtained. Preprocedural ultrasound with measurements of follicles followed by insertion of a 5 [place]raini hysterosalpingogram catheter and infusion of 30 cc [...] or evidence of mass or polyp. US/US sonohysterography IMPRESSION: Normal exam Electronically authenticated by: ROMY VIRGEN Date: 02/18/2024 15:58 Dictated By: Romy Virgen M.D. Signed By:02/18/24 1607 DD/ 1558 TD/TT: Animal Nutrition Consultant: us Generic External Data Provider IMG XR PROCEDURES Final Result documented in this encounter Visit Diagnoses Not on filedocumented in this encounter Care Teams Cell Manager Relationship Specialty Start Date End Date Carolyne Edmonds MD [address] [place] [address] PCP - General Family Medicine 08/28/22 documented as of this encounter
--- OUTSIDE RECORDS SUMMARY | 2024-08-26 12:44 | XMS_ITS | Encounter Summary ---
Author Organization [facility] Address [address] [facility] [place] [address] Care Team Providers Care Knot Saw Operator Name Role Phone Carolyne Edmonds MD Primary Care Provider [phone] Encounter Details Date Type Department Care Team (Late st Contact Info) Description 12/24/2023 Clinisync Result Encounter [facility] External Department Unsolicited [...] Description 09/25/2024 8:40 AM EDT Routine [facility] OB [address] [place] [address] Marzena Meade, DO [address] [place] [address] documented as of this encounter Procedures Procedure Name Priority Date/Time Associated Diagnosis Comments [place] HYSTEROSALPINGOGRAPHY 024 3:17 PM EDT documented in this encounter Results * [place] HYSTEROSALPINGOGRAPHY (12/24/2023 3:17 PM EDT) Anatomical Region Laterality Modality Other 12/24/2023 3:17 PM EDT Narrative 12/24/2023 3:19 [place] [address] Fluoroscopy Report Signed Patient: INDU ST MR#: [id number] : 1995 Acct:[id number] Age/Sex: 28 / F ADM Date: 12/24/23 Loc: [place] Attending Dr: Marzena Meade D.O. Ordering Physician: Marzena Meade D.O. Date of Service: 12/24/23 Procedure(s): FL hysterosalpingography Accession Number(s): [id number] cc: CAROLYNE EDMONDS ; Marzena Meade D.O. The [place] [id number] Patient Name: INDU ST MRN: [id number] date: 1995 Sex: F Assigned Patient Location: IN Current Patient Location: IN Accession/Order Number: [id number] Exam Date: 12/24/2023 14:35 Report Date: 12/24/2023 15:17 At the request of: MARZENA MEADE Procedure: FL hysterosalpingography EXAMINATION: FL hysterosalpingography HISTORY: Fallopian Tube Disorder N83.9 COMPARISON: No relevant comparison available. TECHNIQUE: Informed consent was obtained. A sterile vaginal speculum was introduced and, following cleansing of the cervix, a balloon-tipped catheter was inserted into the endometrial cavity. The procedure was then completed in the usual manner with water-soluble contrast. Standard level fluoroscopic mode of operation utilized. FINDINGS: FALLOPIAN TUBES: Occluded fallopian tubes bilaterally. ENDOMETRIAL CAVITY: No scarring, filling defects, or dilatation. OTHER: Negative. FL/FL hysterosalpingography IMPRESSION: Bilateral fallopian tube occlusion Electronically authenticated by: ROMY VIRGEN Date: 12/24/2023 15:17 Dictated By: Romy Virgen M.D. Signed By: 12/24/23 1519 DD/ 1517 TD/TT: Clinical Support Manager: Procedure Note Radiology, Radiologist, - 12/24/2023 The [place] [id number] Fluoroscopy Report Signed Patient: INDU ST LMR#: [id number] : 1995Acct:[id number] Age/Sex: 28 / FADM Date: 12/24/23 Loc: [place] Attending Dr: Marzena Meade D.O. Ordering Physician: Marzena Meade D.O. Date of Service: 12/24/23 Procedure(s): FL hysterosalpingography Accession Number(s): [id number] cc: CAROLYNE EDMONDS ; Marzena Meade D.O. [place] [id number] Patient Name: INDU ST MRN: [id number] date: 1995 Sex: F Assigned Patient Location: IN Current Patient Location: IN Accession/Order Number: [id number] Exam Date: 12/24/2023 14:35 Report Date: 12/24/2023 15:17 At the request of: MARZENA MEADE Procedure: FL hysterosalpingography EXAMINATION: FL hysterosalpingography HISTORY: Fallopian Tube Disorder N83.9 COMPARISON: No relevant comparison available. TECHNIQUE: Informed consent was obtained. A sterile vaginal speculum was introduced and, following cleansing of the cervix, a balloon-tippedcatheter was inserted into the endometrial cavity. The procedure was then completedin the usual manner with water-soluble contrast. Standard level fluoroscopicmode of operation utilized. FINDINGS: FALLOPIAN TUBES: Occluded fallopian tubes bilaterally. ENDOMETRIAL CAVITY: No scarring, filling defects, or dilatation. OTHER: Negative. FL/FL hysterosalpingography IMPRESSION: Bilateral fallopian tube occlusion Electronically authenticated by: ROMY VIRGEN Date: 12/24/2023 15:17 Dictated By: Romy Virgen M.D. Signed By:12/24/23 1519 DD/ 16 TD/TT: Clinical Support Manager: us Generic External Data Provider [facility] Final Result documented in this encounter Visit Diagnoses Not on filedocumented in this encounter Care Teams Knot Saw Operator Relationship Specialty Start Date End Date Carolyne Edmonds MD [address] [place] [address] PCP - General Family Medicine 08/28/22 documented as of this encounter
--- OUTSIDE RECORDS SUMMARY | 2024-08-26 12:44 | XMS_ITS | Encounter Summary ---
Author Organization [facility] Address [address] [facility] [place] [address] Care Team Providers Care Project Developer Name Role Phone Carolyne Edmonds MD Primary Care Provider [phone] Encounter Details Date Type Department Care Team (Late st Contact Info) Description 12/24/2023 Clinisync Result Encounter [facility] External Department Unsolicited Marzena Meade, DO [address] [place] [address] Social History Tobacco Use Types Packs/Day Years [...] AM EDT Routine [facility] [address] [facility] [place] [address] Marzena Meade, DO [address] [place], [place] [address] documented as of this encounter Procedures Procedure Name Priority Date/Time Associated Diagnosis Comments [place] HYSTEROSALPINGOGRAM 4:00 PM EDT documented in this encounter Results * [place] HYSTEROSALPINGOGRAM (12/24/2023 4:00 PM EDT) Anatomical Region Laterality Modality Other 12/24/2023 4:00 PM EDT Narrative 12/24/2023 4:03 PM EDT [address] [address] Fluoroscopy Report Signed Patient: INDU ST MR#: [id number] : 1995 Acct:[id number] Age/Sex: 28 / F ADM Date: 12/24/23 Loc: [place] Attending Dr: Marzena Meade D.O. Ordering Physician: Marzena Meade D.O. Date of Service: 12/24/23 Procedure(s): FL Hysterosal cath placement Accession Number(s): [id number] cc: CAROLYNE EDMONDS ; Marzena Meade D.O. 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 OTHER: Negative. FL/FL Hysterosal cath placement IMPRESSION: Bilateral fallopian tube occlusion Electronically authenticated by: ROMY VIRGEN Date: 12/24/2023 16:00 Dictated By: Romy Virgen M.D. Signed By: 12/24/23 1603 DD/ 1600 TD/TT: Diamond Setter Apprentice: Procedure Note Radiology, Radiologist, - 12/24/2023 The [place] [id number] Fluoroscopy Report Signed Patient: INDU ST LMR#: [id number] : 1995Acct:[id number] Age/Sex: 28 / FADM Date: 12/24/23 Loc: [place] Attending Dr: Marzena Meade D.O. Ordering Physician: Marzena Meade D.O. Date of Service: 12/24/23 Procedure(s): FL Hysterosal cath placement Accession Number(s): [id number] cc: CAROLYNE EDMONDS ; Marzena Meade D.O. 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 OTHER: Negative. FL/FL Hysterosal cath placement IMPRESSION: Bilateral fallopian tube occlusion Electronically authenticated by: ROMY VIRGEN Date: 12/24/2023 16:00 Dictated By: Romy Virgen M.D. Signed By:12/24/23 1603 DD/ 99 TD/TT: Diamond Setter Apprentice: us Marzena Meade DO [facility] Final Result documented in this encounter Visit Diagnoses Not on filedocumented in this encounter Care Teams Project Developer Relationship Specialty Start Date End Date Carolyne Edmonds MD [address] [place] [address] PCP - General Family Medicine 08/28/22 documented as of this encounter
--- OUTSIDE RECORDS SUMMARY | 2024-08-26 12:44 | XMS_ITS | Encounter Summary ---
Author Organization [facility] Address [address] [place] [id number] Phone Care Team Providers Care Strategies Analyst Name Role Phone Joe Zuleta DO Primary Care Provider + Encounter Details Date Type Department Care Team (Latest Contact Info) Description 08/13/2024 Travel Social History Tobacco Use Types Packs/Day Years [...] Risk Indicated 08/13/2024 9:26 AM EDT Sayda Eduardo RN * [place] Suicide Severity Rating Scale (Screener/Recent Self-Report) Question Answer Date of Assessment Author 1. Wish to be (Past 1 Month) No 025 9:26 AM EDT Sayda Cline, CINDY 2. Non-Specific Active Suici cas Thoughts (Past 1 Month) No 08/13/2024 9:26 AM EDT Sidney Cline, CINDY 6. Suicidal Behavior (Lifetime) No 9:26 AM EDT Sayda Cline, CINDY documented as of this encounter Plan of Treatment Not on file documented as of this encounter Visit Diagnoses Not on filedocumented in this encounter Care Teams Strategies Analyst Relationship Specialty Start Date End Date Joe Zuleta DO [address] [place] [address] PCP - General Family Medicine 08/13/24 documented as of this encounter
--- OUTSIDE RECORDS SUMMARY | 2024-08-26 12:44 | XMS_ITS | Encounter Summary ---
Author Organization [facility] Address [address] [place] [address] Phone Care Team Providers Care Kaiawhina Kohanga Reo Name Role Phone Song Joe Alex Primary Care Provider + Encounter Details Date Type Department Care Team (Latest Contact Info) Description 08/14/2024 Travel Social History Tobacco Use Types Packs/Day [...] Date of Assessment Author No Risk Indicated 08/14/2024 10:12 PM EDT Wilian Johnson RN * [place] Suicide Severity Rating Scale (Screener/Recent Self-Report) Question Answer Date of Assessment Author 1. Wish to be (Past 1 Month) No 025 10:12 PM EDT Wilian Loredo RN 2. Non-Specific Active Suici cas Thoughts (Past 1 Month) No 08/14/2024 10:12 PM EDT Thorne RN 6. Suicidal Behavior (Lifetime) No 10:12 PM EDT Wilian Loredo RN documented as of this encounter Plan of Treatment Not on file documented as of this encounter Visit Diagnoses Not on filedocumented in this encounter Care Teams Kaiawhina Kohanga Reo Relationship Specialty Start Date End Date Joe Zuleta, DO CANOI: [phone] [address] [place] [address] PCP - General Family Medicine 08/13/24 documented as of this encounter
[2024-08-29 12:08] LABS: Age Gdln ACOG Testing Note (.); IGP, rfx Aptima HPV ASCU Note (.)
== END 2024-08-26 12:40 | disposition home or self-care (01) ==
LOC: LAB 12:39
PROVIDERS: PCP Family Medicine; Visit Provider Obstetrics & Gynecology
DX: Z01.419 Encounter for gynecological examination (general) (routine) without abnormal findings (principal)
CPT/HCPCS: 88175

== ENCOUNTER 2025-01-13 20:17 | Outpatient (REF) | payer BC, SELFPAY ==
--- OUTSIDE RECORDS SUMMARY | 2024-12-16 08:30 | XMS_ITS | Encounter Summary ---
Author Organization [facility] Address [address] [place] [address] Care Team Providers Care Unmanned Equipment Operator Name Role Phone Raleigh Collazo MD Primary Care Provider [phone] Reason for Visit * ReasonCommentsRoutine Visit Encounter Details DateTypeDepartmentCare Team (Latest Contact Info)Ocliswqqrqx13/14/2025 9:30 AM EDTRoutine [facility] [address] [place] [address] Uriel Meade DO [address] [place] [address] Third trimester ([facility]); 31 weeks gestation of ([facility]); Encounter for in vitro fertilization; Hemorrhoids, unspecified [...] friends or relatives?Never02/15/2024How often do you attend protestant or samaritan services?Never02/15/2024o you belong to any clubs or organizations such as protestant groups, unions, fraternal or athletic isauro ups, or school groups?No02/15/2024How often do you attend meetings of the clubs or organizations you belong to?Never02/15/2024re you , , , , never , or living with a partner?Bneddyt1702/15/2024 AUDIT-CAnswerDate RecordedQ1: How often do you have [...] housing, medical care, and heating?Not hard at all02/15/2024[facility] [place] of Occupational Health - Occupational Stress QuestionnaireAnswerDate [...] or living in a group home (including now)?No02/15/2024Estimated Date of DeliveryComments Yes02/12/2025ased on Interfaced EDDSex and Gender InformationValueDate Recorded Sex Assigned at BirthNot on fileLegal ThyCxdgfd05/15/2023 7:05 PM EDTGender IdentityNot on fileSexual OrientationNot on filedocumented as of this encounter Last Filed Vital Signs Vital SignReadingTime TakenCommentsBlood Lcfhdfxq824/5212/16/2024 9:36 AM EDT Pulse--Temperature--Respiratory Rate--Oxygen Saturation--Inhaled Oxygen Concentration--Mtpuow70.1 kg (136 lb 12.8 oz)12/16/2024 9:36 AM [...] 1 disorder (HCC) 11/13/2022 Anxiety 12/21/2022 Asthma ([facility]) 12/21/2022 Attention deficit hyperactivity disorder (ADHD), combined type 12/21/2022 Proteinuria 08/03/2010 PTSD (post-traumatic stress disorder) 12/21/2022 Bipolar affective disorder, current episode hypomanic ([facility]) 12/21/2022 Well woman exam with routine gynecological exam 03/19/2023 Myalgia 02/18/2024 Fallopian tube disorder 03/13/2024 Anovulation 03/13/2024 Female infertility 03/13/2024 Resolved Ambulatory Problems Diagnosis Date Noted No Resolved Ambulatory Problems Past Medical History: Diagnosis Date Abnormal uterine bleeding (AUB) ADHD (attention deficit hyperactivity disorder) Amenorrhea Bilateral sacroiliitis Cervical cancer ([facility]) Chronic fatigue Chronic rhinitis Chronic vaginitis Depression with anxiety Endometriosis Gynecological disorder History of medical problems Infertility counseling Low libido Miscarriage ([facility]) S/P laparoscopy Sciatica, unspecified side Seasonal allergic [...] nursing note reviewed. Exam conducted with a e marketing specialist present. Vitals: Estimated body mass index is 22.08 kg/m?? as calculated from the following: Height as of 04/14/24: 5' 6 . Weight as of this encounter: 136 lb 12.8 oz. BP: 108/52 No LMP recorded. Patient is . ASSESSMENT & PLAN ICD-10-CM 1. Third trimester ([facility]) Z34.93 2. 31 weeks gestation of ([facility]) Z3A.31 POCT urinalysis dipstick manually resulted 3. [...] bipolar disorder Infertility counseling Low libido Miscarriage ([facility]) S/P laparoscopy Sciatica, unspecified side Seasonal allergic rhinitis, unspecified trigger Serous otitis media, unspecified chronicity, unspecified laterality URI (upper respiratory infection) 03/01/2019 [facility] [place] [3] Family History Problem Relation [...] 03/2020 lap, D and C - at [facility] DILATION AND CURETTAGE OF UTERUS 03/07/2013 ; 08/13/2015 DILATION AND CURETTAGE OF UTERUS 10/27/2022 EGD 11/2023 HYSTEROSCOPY 06/12/2016 Laproscopy/hysterscopy documented in this encounter Plan of Treatment DateTypeDepartmentCare Team (Latest Contact Info)Gsmmxjzeptl89/18/2025 10:00 AM ESTRoutine [facility] [address] [place] [phone] Uriel Meade DO [address] [place] [address] documented as of this encounter Procedures Procedure NamePriorityDate/TimeAssociated DiagnosisCommentsPOCT URINALYSIS SIAWLKNYZxodful70/14/2025 9:46 AM EDT 31 weeks gestation of ([facility]) documented in this encounter Results * US [...] BY: Ciaran Restrepo MD Authorizing ProviderResult TypeResult StatusUriel Meade [facility] OB US PROCEDURES Final Result * (ABNORMAL) [...] 9:46 AM EDT Narrative Authorizing ProviderResult TypeResult StatusUriel Meade DOPOINT OF CARE TEST ENTER/EDIT ORDERABLESFinal Result documented in this encounter Visit Diagnoses Diagnosis Third trimester ([facility]) state, incidental 31 weeks gestation of ([facility]) Encounter for in vitro fertilization Encounter for assisted reproductive fertility procedure cycle Hemorrhoids, unspecified hemorrhoid type Encounter for in vitro fertilization Encounter for assisted reproductive fertility procedure cycle documented in this encounter Care Teams Team MemberRelationshipSpecialtyStart DateEnd Date Raleigh Collazo MD [address] [place] [address] PCP - GeneralFamily Medicine08/28/22documented as of this encounter
--- OUTSIDE RECORDS SUMMARY | 2024-12-31 07:00 | XMS_ITS | Encounter Summary ---
Author Organization [facility] Address [address] [facility] [place] [address] Care Team Providers Care Oil And Gas Lease Pumper Name Role Phone Raleigh Collazo MD Primary Care Provider [phone] Encounter Details DateTypeDepartmentCare Team (Latest Contact Info)Vzaeyiovhyu75/29/2025 8:00 AM EDTAncillary Procedure [facility] [address] [place] [address] [place] [address] Encounter for in vitro fertilization Social [...] friends or relatives?Never02/15/2024How often do you attend tenriism or buddhist services?Never4Do you belong to any clubs or organizations such as tenriism groups, unions, fraternal or athletic isauro ups, or school groups?No02/15/2024How often do you attend meetings of the clubs or organizations you belong to?Never4Are you , , , , never , or living with a partner?Ztiriqh0302/15/2024 AUDIT-CAnswerDate RecordedQ1: How often do you have [...] and heating?Not hard at all02/15/2024[facility] [place] of Occupational Health - Occupational Stress QuestionnaireAnswerDate [...] homeless or living in a long-term (including now)?No02/15/2024Estimated Date of DeliveryComments Yes5Based on Interfaced EDDSex and Gender InformationValueDate Recorded Sex Assigned at BirthNot on fileLegal LqxJeqhfq85/15/2023 7:05 PM EDTGender IdentityNot on fileSexual OrientationNot on filedocumented as of this encounter Plan of Treatment DateTypeDepartmentCare Team (Latest Contact Info)Ouagtbicbik50/18/2025 10:00 AM ESTRoutine [facility] [address] [place] [address] Uriel Meade, DO [address] [place] [address] documented as of this encounter Procedures Procedure NamePriorityDate/TimeAssociated DiagnosisCommentsUS OB FOLLOW UP TRANSABDOMINAL JJZCVITBVbmuyat67/29/2025 8:47 AM EDT Encounter for in vitro [...] Raleigh Collazo MD [address] [place] [address] PCP - GeneralFamily Medicine08/28/22documented as of this encounter
--- OUTSIDE RECORDS SUMMARY | 2024-12-31 07:50 | XMS_ITS | Encounter Summary ---
Author Organization [facility] Address [address] [place] [address] Care Team Providers Care Avian Keeper Name Role Phone Raleigh Collazo MD Primary Care Provider [phone] Reason for Visit * ReasonCommentsRoutine Visit Encounter Details DateTypeDepartmentCare Team (Latest Contact Info)Miuuahhpewl49/29/2025 8:50 AM EDTRoutine [facility] [address] [place] [address] Dary Wilhelm PA [address] [place], [place] [id number] Third trimester ([facility]); 33 weeks gestation of ([facility]) Social History Tobacco UseTypesPacks/DayYears UsedDateSmoking Tobacco: NeverAlcohol [...] friends or relatives?Never02/15/2024How often do you attend confucianism or church services?Never02/15/2024o you belong to any clubs or organizations such as confucianism groups, unions, fraternal or athletic isauro ups, or school groups?No02/15/2024How often do you attend meetings of the clubs or organizations you belong to?Never02/15/2024re you , , , , never , or living with a partner?Zqbsegg9902/15/2024 AUDIT-CAnswerDate RecordedQ1: How often do you have [...] housing, medical care, and heating?Not hard at all02/15/2024[facility] [place] of Occupational Health - Occupational Stress QuestionnaireAnswerDate [...] Recorded Sex Assigned at BirthNot on fileLegal XbjGrftaw62/15/2023 7:05 PM EDTGender IdentityNot on fileSexual OrientationNot on filedocumented as of this encounter Last Filed Vital Signs Vital SignReadingTime TakenCommentsBlood Jmbfjfnz397/6012/31/2024 8:51 AM EDT Pulse--Temperature--Respiratory Rate--Oxygen Saturation--Inhaled Oxygen Concentration--Gybrvf78.2 kg (137 lb 1.9 oz)12/31/2024 8:51 AM EDTHeight--Body Mass Index22.1302 2:48 PM ESTdocumented in this encounter Progress Notes * PATRICIA Nava - 12/31/2024 8:50 AM EDT Reason for Appointment: Patient ID: [...] QUEtiapine (SEROQUEL) 50 mg, 2 times daily witch mark-glycerin (Tucks) pad Topical, As needed ALLERGIES Allergies Allergen Reactions Dust Mite Extract Unknown PROBLEMS Active Ambulatory Problems Diagnosis Date Noted Bipolar 1 disorder (HCC) 11/13/2022 Anxiety 12/21/2022 Asthma (HCC) 12/21/2022 Attention deficit hyperactivity disorder (ADHD), combined type 12/21/2022 Proteinuria 08/03/2010 PTSD (post-traumatic stress disorder) 12/21/2022 Bipolar affective disorder, current episode hypomanic ([facility]) 12/21/2022 Well woman exam with routine [...] medical problems Infertility counseling Low libido Miscarriage ([facility]) S/P laparoscopy Sciatica, unspecified side Seasonal [...] bipolar disorder Infertility counseling Low libido Miscarriage ([facility]) S/P laparoscopy Sciatica, unspecified side Seasonal allergic rhinitis, unspecified trigger Serous otitis media, unspecified chronicity, unspecified laterality URI (upper respiratory infection) 03/01/2019 [facility] [place] Social History Tobacco Use Smoking [...] 03/2020 lap, D and C - at [facility] DILATION AND CURETTAGE OF UTERUS 03/07/2013 ; 08/13/2015 DILATION AND CURETTAGE OF UTERUS 10/27/2022 EGD 11/2023 HYSTEROSCOPY 06/12/2016 Laproscopy/hysterscopy REVIEW OF SYSTEMS Review of Systems: Review of Systems Constitutional: Negative. HENT: Negative. Eyes: Negative. Respiratory: Negative. Cardiovascular: Negative. Gastrointestinal: Negative. Genitourinary: Negative. Musculoskeletal: Negative. Skin: Negative. Neurological: Negative. All other systems reviewed and are negative. Hematological: Negative. Endocrine: Negative. Allergic/Immunologic: Negative. OBJECTIVE Objective: OBGyn Exam Vitals: Estimated body mass index is 22.08 kg/m?? as calculated from the following: Height as of 04/14/24: 5' 6 . Weight as of 12/16/24: 136 lb 12.8 oz. BP: No LMP recorded. Patient is . ASSESSMENT & PLAN ICD-10-CM 1. Third trimester ([facility]) Z34.93 2. 33 weeks gestation of ([facility]) Z3A.33 POCT urinalysis dipstick manually resulted Return OB: Patient presents today for a routine obstetrics appointment. Patient is currently 33w6d . Patient states she is doing well but has complaints of being tired due to current . Patient has verbalizes frequent movement. labor precautions was discussed/given and patient was instructed to perform kick counts three times a day. Orders Placed This Encounter Procedures POCT urinalysis dipstick manually resulted Follow Up: Patient is to return to office in 2 week for routine OB appointment. Documented by Kelsie Craen CST on behalf of: PATRICIA Nava documented in this encounter Plan of Treatment DateTypeDepartmentCare Team (Latest Contact Info)Kfbqmeopxrk26/18/2025 10:00 AM ESTRoutine [facility] [address] [place] [address] Uriel Meade, [address] [place] [address] documented as of this encounter Procedures Procedure NamePriorityDate/TimeAssociated DiagnosisCommentsPOCT URINALYSIS QLUWAAOMTpnciio32/29/2025 8:57 AM EDT 33 weeks gestation of ([facility]) documented in this encounter Results * (ABNORMAL) POCT urinalysis dipstick manually resulted (12/31/2024 8:57 AM EDT) ComponentValueRef RangeTest MethodAnalysis TimePerformed AtPathologist SignatureColor, UAYellowClarity, UAClearGlucose, UANegativeNegative - 1999(110) ++++ mg/dLBilirubin, UANegativeNegative - 4(70) +++ mg/dLKetones, UA NegativeNegative - 160(16) ++++ mg/dLSpec Grav, UA1.0101 - 1.03Blood, UA NegativeNegative - 50 Mick/mcLpH, UA7.05 - 9Protein, UATraceNegative - 2000(20) ++++ mg/dLUrobilinogen, UA2.00.2 - 12 mg/dLLeukocytes, UA1+Negative - 500+++ Campos/mcLNitrite, UANegativeNegative - PositiveSpecimen (Source)Anatomical Location / LateralityCollection Method / VolumeCollection TimeReceived Time Urine12/31/2024 8:57 AM EDT Narrative Authorizing ProviderResult TypeResult StatusNor[facility] OF CARE TEST ENTER/EDIT ORDERABLESFinal Result documented in this encounter Visit Diagnoses Diagnosis Third trimester ([facility]) state, incidental 33 weeks gestation of ([facility]) documented in this encounter Care Teams Team MemberRelationshipSpecialtyStart DateEnd Date Raleigh Collazo MD [address] [place] [address] PCP - GeneralFamily Medicine08/28/22documented as of this encounter
--- OUTSIDE RECORDS SUMMARY | 2025-01-01 10:03 | XMS_ITS | Continuity of Care Document ---
Author Organization [facility] Address Unknown Support Name Relationship Address Phone JAMEEL, JOEL T spouse Unknown Unavailable JAMEEL, JOEL T spouse Unknown Unavailable JAMEEL, JOEL T spouse Unknown Unavailable ALMA ROSA, MAHAD CEDRIC Personal Relationship Unknown Unavailable JAMEEL, JOEL T spouse Unknown Unavailable JAMEEL, JOEL T spouse Unknown Unavailable ALMA ROSA, TRINA D child Unknown Unavailable JAMEEL, JOEL T spouse Unknown Unavailable JAMEEL, JOEL T spouse Unknown Unavailable ALMA ROSA, TRINA D child Unknown Unavailable JAMEEL, JOEL T spouse Unknown Unavailable ALMA ROSA, TRINA D child Unknown Unavailable JAMEEL, JOEL T spouse Unknown Unavailable JAMEEL, JOEL T spouse Unknown Unavailable ALMA ORSA, SARAH B child Unknown Unavailable JAMEEL, JOEL T spouse Unknown Unavailable ALMA ROSA, MONIQUE D Personal Relationship Unknown Unavailable JAMEEL, JOEL T spouse Unknown Unavailable JAMEEL, JOEL T spouse Unknown Unavailable JAMEEL, JOEL T spouse Unknown Unavailable JAMEEL, JOEL T spouse Unknown Unavailable JAMEEL, JOEL T spouse Unknown Unavailable ALMA ROSA, TRINA D child Unknown Unavailable ALMA ROSA, EMMANUEL R mother Unknown Unavailable JAMEEL, JOEL T spouse Unknown Unavailable JAMEEL, JOEL T Other Unknown Unavailable JAMEEL, JOEL T spouse Unknown Unavailable JAMEEL, JOEL T spouse Unknown Unavailable JAMEEL, JOEL T spouse Unknown Unavailable JAMEEL, JOEL T spouse Unknown Unavailable Care Team Providers Care Software Quality Automation Engineer Name Role Phone Joe WELCH Primary Care Physician [phone] Encounter [facility] [id number] Date(s): 01/01/25 - 01/01/25 [facility] [place] [address]- Discharge Disposition: Home (Routine DC) Attending Physician: Uriel JARRELL DO Admitting Physician: Uriel JARRELL DO Encounter Type: Outpatient Allergies, Adverse Reactions, Alerts No Known Allergies Treatment Plan Future Appointments Appointment Date:01/08/2025 10:00:00 AM Scheduled Provider: Location:.[facility] Appointment Type:US (FT) Appointment Date:01/15/2025 10:00:00 AM Scheduled Provider: Location[facility] Appointment Type:US (FT) Future Scheduled Tests Radiology* US Biophysical Profile w/ Non-Str 01/08/25 * US Biophysical Profile w/ Non-Str 01/15/25 Immunizations Given and Recorded VaccineDateStatusRefusal Reasoninfluenza virus vaccine, shmettbvgvi78/3/16 Recordedhepatitis B adult vaccine05/18/14Recordedhepatitis B adult vaccine03/30/14 Recordedhepatitis B pediatric vaccine11/12/13Recordedhepatitis A pediatric vaccine11/12/13Recordedhepatitis A pediatric vaccine04/20/10Recordedinfluenza, whole12/31/12Recordedmeasles/mumps/rubella virus fismbek070/12/13Given measles/mumps/rubella virus vaccine06/08/99Recordedvaricella virus vaccine04/20/10 Recordeddiphtheria/pertussis, acel/tetanus adult05/29/08Recordedmeningococcal conjugate vaccine05/29/08Recordedhuman papillomavirus jmwctlu29/11/07Recorded human papillomavirus vaccine08/13/06Recordedhuman papillomavirus vaccine06/13/06 Recordedpoliovirus vaccine, inactivated06/08/99RecordedDTaP, unspecified formulation06/08/99Recorded 1Reason for Medication: Other (see comment) Medications Iron Chews 15 mg, Oral, Daily, Refills(s) 0 Start Date: 12/08/24 Status: Ordered Medication Dispense Status: Completed Total Allowed Fills: 1 Fills Dispensed: [address] Tab 20 mg = 1 tab(s), Oral, Refills(s) 0 Start Date: 12/18/24 Status: Ordered Medication Dispense Status: Completed Total Allowed Fills: 1 Fills Dispensed: 0 19 ([place]) See Instructions, Refill(s) 0, Oral Start Date: 06/19/24 Status: Ordered Medication Dispense Status: Completed Total Allowed Fills: 1 Fills Dispensed: 0 SEROquel 50 mg ER Tab 100 mg = 2 tab(s), Oral, Bedtime, Refills(s) 0 Start Date: 08/14/24 Status: Ordered Medication Dispense Status: Completed Total Allowed Fills: 1 Fills Dispensed: 0 Problem List ConditionConfirmationCourseEffective DatesStatusHealth StatusInformantAbnormal uterine bleeding.ConfirmedActiveAmenorrheaConfirmed03/22/20ActiveAnemiaConfirmed ActiveAnxietyConfirmed03/25/20ActiveAsthmaConfirmedActiveAsthmaConfirmedActive Attention deficit hyperactivity disorderConfirmedActiveBenign neoplasm of pituitary glandConfirmed06/13/23ActiveBilateral arthritis of sacroiliac joint ConfirmedActiveBipolar disorderConfirmedActiveChronic rhinitisConfirmedActive Chronic vaginitisConfirmed03/25/20ActiveAbnormal CT of the abdomenConfirmedActive Depressive disorderConfirmed03/25/20ActiveDisorder of pituitary glandConfirmed ActiveEndometriosis (clinical)Confirmed03/25/20ActiveEsophagitisConfirmedActive FatigueConfirmedActiveGastritisConfirmed07/20/23ActiveHeartburnConfirmedActive History of laparoscopyConfirmedActiveMalignant tumor of cervixConfirmedActive MiscarriageConfirmedActiveNausea and vomitingConfirmedActivePain in pelvis Confirmed09/25/22ActiveIn vitro fertilizationConfirmedActivePregnancyConfirmed 09/12/12 - 12/13/1270OxeysnguFebydhcsnXbqoheuee1/1/25ActivePregnancyConfirmed 01/22/15 - 2015ResolvedProlactin level above reference rangeConfirmed05/28/23 ActiveProlactinomaConfirmedActiveStress-related physiological response affecting medical conditionConfirmedActiveSciaticaConfirmedActiveScoliosisConfirmedActive Seasonal allergic mbfyvbutYtybrmiyfMvrafiPgoofx2QuhpiboomMgszivDpolohjt hypersensitivity syndromeConfirmedActivevocal cord dysfunctionConfirmedActive Weight lossConfirmedActive 1Added secondary to documentation in Social History. Procedures ProcedureDateRelated DiagnosisBody SiteStatusColonoscopy10/15/23Completed Esophagogastroduodenoscopy10/15/23CompletedTonsillectomy and adenoidectomy Completed Social History Social History TypeResponseSmoking StatusNever (less than 100 in lifetime);Never entered on: 09/13/23Birth SexFemaleSex RepresentationFemale (finding) Patient Care team information Care Team Personnel Name: Uriel JARRELL DO Position: OB/PEDS Hospital Provider Member Role: SENIOR ADMINISTRATOR SUPPORT Physician Address: [address] , [place] [address]- Telecom: [phone] Name: Joe WELCH DO Member Role: Primary Care Physician Address: [address] [facility] [place] [address]- Telecom: Care Team Related Persons Name: JOEL JORGENSEN T Name: JOEL JORGENSEN T Name: JOEL JORGENSEN T Name: JOEL JORGENSEN T Name: JAMEEL, JOEL T Name: JAMEEL, JOEL T Name: JAMEEL, JOEL T Name: JAMEEL, JOEL T Name: JAMEEL, JOEL T Name: JAMEEL, JOEL T Name: JAMEEL, JOEL T Name: JOEL JORGENSEN Name: MAHAD ST Name: MONIQUE ST Name: TRINA ST Name: TRINA ST Name: TRINA ST Name: TRINA ST Name: SARAH ST Name: EMMANUEL ST Insurance Providers Guarantor name: INDU CHUNBirgit JORGENSEN Health Plan Information #: 1 Payer: [employer]ar Payer Identifier: [id number] Member Number: [id number] Group Number: [id number] Subscriber Identifier: [id number] Relationship to Subscriber: self Coverage Type: PRIVATE HEALTH INSURANCE Coverage Verification Date: 24 Telecom: [phone] Address: [facility] [id number] [place] [address]
--- OUTSIDE RECORDS SUMMARY | 2025-01-05 08:15 | XMS_ITS | Continuity of Care Document ---
Author Organization [facility] Address Unknown Support Name Relationship Address Phone [...] JOEL T spouse Unknown Unavailable ALMA ROSA, SARAH B child Unknown Unavailable JAMEEL, JOEL [...] spouse Unknown Unavailable Care Team Providers Care Railroad Emergency Services Manager Name Role Phone Joe WELCH Primary Care Physician Encounter [facility] [id number] Date(s): 01/05/25 - 01/05/25 [facility] [place] [address]- Discharge Disposition: Home (Routine DC) Attending Physician: Uriel JARRELL DO Admitting Physician: Uriel JARRELL DO Encounter Type: Outpatient Allergies, Adverse Reactions, Alerts No Known Allergies Treatment Plan Future Appointments Appointment Date:01/08/2025 08:00:00 AM Scheduled Provider: Location[facility] Appointment Type:US (FT) Appointment Date:01/15/2025 10:00:00 AM Scheduled Provider: Location[facility] Appointment Type:US (FT) Future Scheduled Tests Radiology* US Biophysical Profile w/ Non-Str 01/08/25 * US Biophysical Profile w/ Non-Str 01/15/25 Immunizations Given and Recorded VaccineDateStatusRefusal Reasoninfluenza virus vaccine, tbqagwppkzn58/3/16 Recordedhepatitis B adult vaccine05/18/14Recordedhepatitis B adult vaccine03/30/14 Recordedhepatitis B pediatric vaccine11/12/13Recordedhepatitis A pediatric vaccine11/12/13Recordedhepatitis A pediatric vaccine04/20/10Recordedinfluenza, whole12/31/12Recordedmeasles/mumps/rubella virus vgekavg757/12/13Given measles/mumps/rubella virus vaccine06/08/99Recordedvaricella virus vaccine04/20/10 Recordeddiphtheria/pertussis, acel/tetanus adult05/29/08Recordedmeningococcal conjugate vaccine05/29/08Recordedhuman papillomavirus vvqyqnt75/11/07Recorded human papillomavirus vaccine08/13/06Recordedhuman papillomavirus vaccine06/13/06 Recordedpoliovirus vaccine, [...] Allowed Fills: 1 Fills Dispensed: 0 19 ([place]) See Instructions, Refill(s) 0, Oral Start Date: [...] in pelvis Confirmed09/25/22ActiveIn vitro fertilizationConfirmedActivePregnancyConfirmed 09/12/12 - 12/13/1251EyaoduliQjkfihrabLctmbvdij2/1/25ActivePregnancyConfirmed 01/22/15 - 2015ResolvedProlactin level above reference rangeConfirmed05/28/23 ActiveProlactinomaConfirmedActiveStress-related physiological response affecting medical conditionConfirmedActiveSciaticaConfirmedActiveScoliosisConfirmedActive Seasonal allergic qxrogsnoQsvzcgubxTuosipPobuar8HwvurlehvRodabnInyjvxpm hypersensitivity syndromeConfirmedActivevocal cord dysfunctionConfirmedActive Weight lossConfirmedActive 1Added secondary to documentation in Social History. Procedures ProcedureDateRelated DiagnosisBody SiteStatusColonoscopy10/15/23Completed Esophagogastroduodenoscopy10/15/23CompletedTonsillectomy and adenoidectomy Completed Social History Social History TypeResponseSmoking StatusNever (less than 100 in lifetime);Never entered on: 09/13/23Birth SexFemaleSex RepresentationFemale (finding) Patient Care team information Care Team Personnel Name: Uriel JARRELL DO Position: OB/PEDS Hospital Provider Member Role: DUST HANDLER Physician Address: [address] , [place] [address]- Telecom: [phone] Name: Joe WELCH DO Member Role: Primary Care Physician Address: [address] [facility] [place] [address]- Telecom: Care Team Related Persons Name: JOEL JORGENSEN T Name: JOEL JORGENSEN T Name: JOEL JORGENSEN T Name: JOEL JORGENSEN T Name: JAMEEL, JOEL T Name: JAMEEL, JOEL T Name: JAMEEL, JOEL T Name: JAMEEL, JOEL T Name: JAMEEL, JOEL T Name: JAMEEL, JOEL T Name: JAMELE, JOEL T Name: JOEL JORGENSEN Name: MAHAD ST Name: MONIQUE ST Name: TRINA ST Name: TRINA ST Name: TRINA ST Name: TRINA ST Name: SARAH ST Name: EMMANUEL ST Insurance Providers Guarantor name: INDU CHUNBirgit JORGENSEN Health Plan Information #: 1 Payer: [employer]ar Payer Identifier: [id number] Member Number: [id number] Group Number: [id number] Subscriber Identifier: [id number] Relationship to Subscriber: self Coverage Type: PRIVATE HEALTH INSURANCE Coverage Verification Date: 25 Telecom: [phone] Address: [facility] [id number] [place] [address]
--- OUTSIDE RECORDS SUMMARY | 2025-01-06 08:00 | XMS_ITS ---
Author Organization [facility] Address [address] [place] [address] Care Team Providers Care Drawer In Name Role Phone Karis Varela Primary Care Provider [phone] REASON FOR VISIT BPD, BIPOLAR, ANXIETY, ADHD [...] hurting yourself in some wayNot at allTotal Qhlqi65Mdbwfkbkapdxq Severe Depression Problems Problem Type SNOMED Code ICD Code Onset Dates Problem Status W/U Status Risk Notes Problem Mood disorder (23983044) Mood disorder (F 39) ActiveconfirmedProblemMixed anxiety and depressive disorder (763134863)Mixed anxiety and depressive disorder (F41.8)Activeconfirmed Encounters Encounter Location Date Provider Diagnosis [facility] [place] [address] [place] [address] 01/06/2025 Karis Varela Mood disorder F39 and Mixed anxiety and depressive disorder F41.8 Assessments Encounter Date Diagnosis (ICD Code) Assessment Notes Treatment Notes Treatment Clinical Notes Section Notes 01/06/2025 Mood disorder (ICD-10 - F39) 01/06/2025Mixed anxiety and depressive disorder (ICD-10 - F41.8) Plan Of Treatment Next Appt Details Provider Name:Karis serrano, 01/14/2025 10:00:00 AM, [place], [address], Provider Name:Karis serrano, 01/19/2025 09:00:00 AM, [place], [address], History and Physical Notes * HPI (History [...] * RHODA JORGENSEN:1995 ( 29 yo F)Acc No.[id number]:01/06/2025 Consult - Patient Patient: JANUSZ GARCIAICA :?Karis VarelaB:1995???Age:29 Y???Sex: FemaleDate:01/06/2025Phone:[phone]:182 [facility] Subjective: * Chief Complaints: * 1 . [...] DIAGNOSTIC EVALUATION Billing Information: * Procedure Codes: 59341 PSYCH DIAGNOSTIC EVALUATION. Care Plan Details* Problem B H Diagnostic Assessment PresentPersons Present?PT Type of Session?Face to Face Start Time/End Time?12:58pm - 2:13pm ReferralRisk Assessment?PT denies all areas of risk. No contrary indications present. PT informed?my responsibilities as a therapist;PT's expectations in treatment;mutual development of treatment goals;limits of confidentiality;HIPAA privacy rights;consent to treat;releases of information;my responsibilities as a mandated tobacco warehouse agent Chief ComplaintDepression?adhedonia;crying spells;decreased sex drive;excessive guilt;fatigue;feelings of [...] old Ethnicity? Marital Status? 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 ACETYLENE CUTTER will continue to assess Pt needs, build rapport, and consider referralto WOOD PROCESSING WORKER if Pt needs an evaluation. * ign off status: Completed true * Provider: Michael Varela Date: 03/08/2024 Generated for Printing/Faxing/eTransmitting on:?01/13/2025 08:21 PM EST
--- OUTSIDE RECORDS SUMMARY | 2025-01-08 09:25 | XMS_ITS | Continuity of Care Document ---
Author Organization [facility] Address Unknown Support Name Relationship Address Phone [...] spouse Unknown Unavailable Care Team Providers Care Hatchery Man Name Role Phone Joe WELCH Primary Care Physician Encounter FT_FIN [id number] Date(s): 01/08/25 - 01/08/25 [facility] [place] [address]- Discharge Disposition: Home (Routine DC) Attending Physician: Uriel JARRELL DO Admitting Physician: Uriel JARRELL DO Encounter Type: Outpatient Allergies, Adverse Reactions, Alerts No Known Allergies Treatment Plan Future Appointments Appointment Date:01/15/2025 10:00:00 AM Scheduled Provider: Location:FT.[facility]TRAS[facility] Appointment Type:US (FT) Future Scheduled Tests Radiology* US Biophysical Profile w/ Non-Str 01/15/25 Immunizations Given and Recorded VaccineDateStatusRefusal Reasoninfluenza virus vaccine, avevtyzxqdd86/3/16 Recordedhepatitis B adult vaccine05/18/14Recordedhepatitis B adult vaccine03/30/14 Recordedhepatitis B pediatric vaccine11/12/13Recordedhepatitis A pediatric vaccine11/12/13Recordedhepatitis A pediatric vaccine04/20/10Recordedinfluenza, whole12/31/12Recordedmeasles/mumps/rubella virus /12/13Given measles/mumps/rubella virus vaccine06/08/99Recordedvaricella virus vaccine04/20/10 Recordeddiphtheria/pertussis, acel/tetanus adult05/29/08Recordedmeningococcal conjugate vaccine05/29/08Recordedhuman papillomavirus xnimkyh89/11/07Recorded human papillomavirus vaccine08/13/06Recordedhuman papillomavirus vaccine06/13/06 Recordedpoliovirus vaccine, [...] Allowed Fills: 1 Fills Dispensed: 0 19 ([place]) See Instructions, Refill(s) 0, Oral Start Date: [...] in pelvis Confirmed09/25/22ActiveIn vitro fertilizationConfirmedActivePregnancyConfirmed 09/12/12 - 12/13/1218XxxffsitBmpzxwbmhHinnmfurw0/1/25ActivePregnancyConfirmed 01/22/15 - 2015ResolvedProlactin level above reference rangeConfirmed05/28/23 ActiveProlactinomaConfirmedActiveStress-related physiological response affecting medical conditionConfirmedActiveSciaticaConfirmedActiveScoliosisConfirmedActive Seasonal allergic hrdgkpilXwxtuyshuXhnpdzOjxhxl1CqprfhqteXrolvrEiafksmo hypersensitivity syndromeConfirmedActivevocal cord dysfunctionConfirmedActive Weight lossConfirmedActive 1Added secondary to documentation in Social History. Procedures ProcedureDateRelated DiagnosisBody SiteStatusColonoscopy10/15/23Completed Esophagogastroduodenoscopy10/15/23CompletedTonsillectomy and adenoidectomy Completed Social History Social History TypeResponseSmoking StatusNever (less than 100 in lifetime);Never entered on: 09/13/23Birth SexFemaleSex RepresentationFemale (finding) Patient Care team information Care Team Personnel Name: Uriel JARRELL DO Position: OB/PEDS Hospital Provider Member Role: BULK FLUIDS HANDLER Physician Address: [address] , [place] [address]- Telecom: [phone] Name: Joe WELCH DO Member Role: Primary Care Physician Address: [address] [facility] [place] [address]- Telecom: Care Team Related Persons Name: JOEL JORGENSEN Name: JAMEEL, JOEL T Name: JAMEEL, JOEL T Name: JAMEEL, JOEL T Name: JAMEEL, JOEL T Name: JAMEEL, JOEL T Name: JAMEEL, JOEL T Name: JAMEEL, JOEL T Name: JAMEEL, JOEL T Name: JAMEEL, JOEL T Name: JAMEEL, JOEL T Name: JAMEEL, JOEL T Name: MAHAD ST Name: MONIQUE ST Name: TRINA ST Name: TRINA ST Name: TRINA ST Name: TRINA ST Name: SARAH ST Name: EMMANUEL ST Insurance Providers Guarantor name: INDU OLY JORGENSEN Health Plan Information #: 1 Payer: [employer]ar Payer Identifier: [id number] Member Number: [id number] Group Number: [id number] Subscriber Identifier: [id number] Relationship to Subscriber: self Coverage Type: PRIVATE HEALTH INSURANCE Coverage Verification Date: 25 Telecom: [phone] Address: [facility] [id number] [place] [address]
--- OUTSIDE RECORDS SUMMARY | 2025-01-12 08:11 | XMS_ITS | Continuity of Care Document ---
Author Organization [facility] Address Unknown Support Name Relationship Address [...] JOEL T spouse Unknown Unavailable ALMA ORSA, TRINA D child Unknown Unavailable ALMA ROSA, EMMANUEL R mother Unknown Unavailable JAMEEL, JOEL T spouse Unknown Unavailable JAMEEL, JOEL T Other Unknown Unavailable JAMEEL, JOEL T spouse Unknown Unavailable JAMEEL, JOEL T spouse Unknown Unavailable JAMEEL, JOEL T spouse Unknown Unavailable JAMEEL, JOEL T spouse Unknown Unavailable Care Team Providers Care Tractor Trailer Moving Van Driver Name Role Phone Joe WELCH Primary Care Physician Encounter [facility] [id number] Date(s): 01/12/25 - 01/12/25 [facility] [place] [address]- Discharge Disposition: Home (Routine DC) Attending Physician: Uriel JARRELL DO Admitting Physician: Uriel JARRELL DO Encounter Type: Outpatient Allergies, Adverse Reactions, Alerts No Known Allergies Treatment Plan Future Appointments Appointment Date:01/15/2025 10:00:00 AM Scheduled Provider: Location:FT.[facility]TR[facility] Appointment Type:US (FT) Future Scheduled Tests Radiology* US Biophysical Profile w/ Non-Str 01/15/25 Immunizations Given and Recorded VaccineDateStatusRefusal Reasoninfluenza virus vaccine, fxsyjczmyku85/3/16 Recordedhepatitis B adult vaccine05/18/14Recordedhepatitis B adult vaccine03/30/14 Recordedhepatitis B pediatric vaccine11/12/13Recordedhepatitis A pediatric vaccine11/12/13Recordedhepatitis A pediatric vaccine04/20/10Recordedinfluenza, whole12/31/12Recordedmeasles/mumps/rubella virus toifzct130/12/13Given measles/mumps/rubella virus vaccine06/08/99Recordedvaricella virus vaccine04/20/10 Recordeddiphtheria/pertussis, acel/tetanus adult05/29/08Recordedmeningococcal conjugate vaccine05/29/08Recordedhuman papillomavirus /11/07Recorded human papillomavirus vaccine08/13/06Recordedhuman papillomavirus vaccine06/13/06 Recordedpoliovirus vaccine, [...] Allowed Fills: 1 Fills Dispensed: 0 19 ([place]) See Instructions, Refill(s) 0, Oral Start Date: [...] in pelvis Confirmed09/25/22ActiveIn vitro fertilizationConfirmedActivePregnancyConfirmed 09/12/12 - 12/13/1206CuirlodaHnxsqniojFgbsrgpbb3/1/25ActivePregnancyConfirmed 01/22/15 - 2015ResolvedProlactin level above reference rangeConfirmed05/28/23 ActiveProlactinomaConfirmedActiveStress-related physiological response affecting medical conditionConfirmedActiveSciaticaConfirmedActiveScoliosisConfirmedActive Seasonal allergic vutmrsosLtunebeetGzswuxBycrhz4MzbywywstHuwhcoOydqfsqx hypersensitivity syndromeConfirmedActivevocal cord dysfunctionConfirmedActive Weight lossConfirmedActive 1Added secondary to documentation in Social History. Procedures ProcedureDateRelated DiagnosisBody SiteStatusColonoscopy10/15/23Completed Esophagogastroduodenoscopy10/15/23CompletedTonsillectomy and adenoidectomy Completed Social History Social History TypeResponseSmoking StatusNever (less than 100 in lifetime);Never entered on: 09/13/23Birth SexFemaleSex RepresentationFemale (finding) Patient Care team information Care Team Personnel Name: Uriel JARRELL DO Position: OB/PEDS Hospital Provider Member Role: TEACHER EMOTIONALLY IMPAIRED Physician Address: [address] , [place] [address]- Telecom: [phone] Name: Joe WELCH DO Member Role: Primary Care Physician Address: [address] [facility] [place] [address]- Telecom: Care Team Related Persons Name: JOEL [...] Information #: 1 Payer: [employer]ar Payer Identifier: [id number] Member Number: [id number] Group Number: [id number] Subscriber Identifier: [id number] Relationship to Subscriber: self Coverage Type: PRIVATE HEALTH INSURANCE Coverage Verification Date: 25 Telecom: [phone] Address: [facility] [id number] [place] [address]
--- OUTSIDE RECORDS SUMMARY | 2025-01-13 09:30 | XMS_ITS | Encounter Summary ---
Author Organization [facility] Address [address] [place] [address] Care Team Providers Care Fire Eater Name Role Phone Raleigh Collazo MD Primary Care Provider [phone] Reason for Visit * ReasonCommentsRoutine Visit Encounter Details DateTypeDepartmentCare Team (Latest Contact Info)Rfgwydxfchm57/11/2025 9:30 AM ESTRoutine [facility] [address] [place] [phone] Uriel Meade DO [address] [place] [address] 35 weeks gestation of ([facility]); Third trimester ([facility]); Encounter for in vitro fertilization; Hemorrhoids, unspecified hemorrhoid type; Bipolar 1 disorder ([facility]); PTSD (post-traumatic stress disorder) Social History [...] friends or relatives?Never02/15/2024How often do you attend scientology or buddhism services?Never02/15/2024o you belong to any clubs or organizations such as scientology groups, unions, fraternal or athletic isauro ups, or school groups?No02/15/2024How often do you attend meetings of the clubs or organizations you belong to?Never02/15/2024re you , , , , never , or living with a partner?Xycwiaj6902/15/2024 AUDIT-CAnswerDate RecordedQ1: How often do you have [...] housing, medical care, and heating?Not hard at all02/15/2024[facility] [place] of Occupational Health - Occupational Stress QuestionnaireAnswerDate [...] or living in a care home (including now)?No02/15/2024Estimated Date of DeliveryComments Yes5Based on Interfaced EDDSex and Gender InformationValueDate Recorded Sex Assigned at BirthNot on fileLegal IvqLkoqvt62/15/2023 7:05 PM EDTGender IdentityNot on fileSexual OrientationNot on filedocumented as of this encounter Last Filed Vital Signs Vital SignReadingTime TakenCommentsBlood Lglnoggq560/5801/13/2025 9:29 AM EST Pulse--Temperature--Respiratory Rate--Oxygen Saturation--Inhaled Oxygen Concentration--Tenyam12 kg (139 lb)01/13/2025 9:29 AM ESTHeight--Body Mass Index 22.4402 2:48 PM ESTdocumented in this encounter Plan of Treatment DateTypeDepartmentCare Team (Latest Contact Info)Dwibetikguj72/18/2025 10:00 AM ESTRoutine [facility] [address] [place] [phone] Uriel Meade DO [address] [place] [address] NameTypePriorityAssociated DiagnosesOrder ScheduleCULTURE, GROUP B STREP WITH SUSCEPTIBLITYLabRoutine Third trimester ([facility]) Expected: 01/13/2025, Expires: 01/13/2026documented as of this encounter Procedures Procedure NamePriorityDate/TimeAssociated DiagnosisCommentsPOCT URINALYSIS FJEJRQJZOoxxnpq55/11/2025 9:36 AM EST 35 weeks gestation of ([facility]) Third trimester ([facility]) documented in this encounter Results * (ABNORMAL) POCT urinalysis dipstick manually resulted (01/13/2025 9:36 AM EST) ComponentValueRef RangeTest MethodAnalysis TimePerformed AtPathologist SignatureColor, UAYellowClarity, UACloudyGlucose, UANegativeNegative - 1999(110) ++++ mg/dLBilirubin, UANegativeNegative - 4(70) +++ mg/dLKetones, UA NegativeNegative - 160(16) ++++ mg/dLSpec Grav, UA1.0151 - 1.03Blood, UA NegativeNegative - 50 Mick/mcLpH, UA7.55 - 9Protein, UAPositiveNegative - 1999(20) ++++ mg/dLUrobilinogen, UA1.00.2 - 12 mg/dLLeukocytes, UAPositive Negative - 500+++ Campos/mcLComment:2+Nitrite, UANegativeNegative - Positive Specimen (Source)Anatomical Location / LateralityCollection Method / Volume Collection TimeReceived QuuiCdqyk65/11/2025 9:36 AM EST Narrative Authorizing ProviderResult TypeResult StatusCorey Halina DOPOINT OF CARE TEST ENTER/EDIT ORDERABLESFinal Result documented in this encounter Visit Diagnoses Diagnosis 35 weeks gestation of ([facility]) Third trimester ([facility]) state, incidental Encounter for in vitro fertilization Encounter for assisted reproductive fertility procedure cycle Hemorrhoids, unspecified hemorrhoid type Bipolar 1 disorder ([facility]) PTSD (post-traumatic stress disorder) Posttraumatic stress disorder documented in this encounter Care Teams Team MemberRelationshipSpecialtyStart DateEnd Date Raleigh Collazo MD [address] [place] [address] PCP - GeneralFamily Medicine08/28/22documented as of this encounter
--- OUTSIDE RECORDS SUMMARY | 2025-01-13 20:21 | XMS_ITS | Clinical Summary ---
Author Organization [facility] Address [address], [address] [place] [address] Care Team Providers Care Ship/Rec/Doc Control Name Role Phone Joe Zuleta DO Primary Care Provider [phone] Allergies Active AllergyReactionsCriticalityNoted DateCommentsDust Mite Ujdeiom7707/07/2024 Medications MedicationSigDispense QuantityRefillsLast FilledStart DateEnd DateStatus Vit-Fe Fumarate-FA ( VITAMINS) 28-0.8 MG TABS Take 1 tablet by mouth daily5Active QUEtiapine (SEROQUEL) 50 MG tablet Indications:Bipolar affective disorder, current episode hypomanic ([facility])Take 1 tablet by mouth 2 times daily 60 tablet 5Active OLANZapine (ZYPREXA) 2.5 MG tablet 5Active ondansetron (ZOFRAN-ODT) 8 MG TBDP disintegrating tablet Indications:HyperemesisTake 1 tablet by mouth 4 times daily 40 tablet 5Active pantoprazole (PROTONIX) 20 MG tablet 5Active famotidine (PEPCID) 20 MG tablet Take 1 tablet by mouth 2 times daily/Discontinued(LIST CLEANUP) pantoprazole (PROTONIX) 40 MG tablet Take 1 tablet by mouth daily/Discontinued(LIST CLEANUP) progesterone (PROMETRIUM) 200 MG CAPS capsule Take 1 capsule by mouth dailyDiscontinued(LIST CLEANUP) progesterone 50 MG/ML injection Inject 1.5mL once daily. IVF medication. Ends Discontinued(LIST CLEANUP) metoclopramide (REGLAN) 10 MG tablet Take 1 tablet by mouth 4 times daily12/23/2024Discontinued(LIST CLEANUP) estradiol (ESTRACE) 2 MG tablet Take 1 tablet by mouth in the morning, at noon, in the evening, and at bedtime Discontinued(LIST CLEANUP) sucralfate (CARAFATE) 1 GM/10ML suspension Take 10 mLs by mouth 4 times dailyDiscontinued(LIST CLEANUP) Pancrelipase, Uua-Ucos-Eoey, (CREON) 8481-0165 units CPEP Indications:Digestive symptomsTake 1 capsule by mouth 4 times daily 120 capsule Discontinued(LIST CLEANUP) busPIRone (BUSPAR) 5 MG tablet Take 1 tablet by mouth 2 times dailyDiscontinued(LIST CLEANUP) NIFEdipine (PROCARDIA) 10 MG immediate release capsule Indications:Esophageal spasmTake 1 capsule by mouth 3 times daily 90 capsule Discontinued(LIST CLEANUP) hyoscyamine (LEVSIN/SL) 0.125 MG sublingual tablet Indications:Diffuse esophageal spasmPlace 1 tablet under the tongue every 4 hours as needed for Cramping 30 tablet Discontinued(LIST CLEANUP) acetaminophen (TYLENOL) [address] 1 suppository azdayjef60Discontinued(LIST CLEANUP) capsaicin (ZOSTRIX) 0.025 % cream APPLY TOPICALLY THREE TIMES DAILY.Discontinued(LIST CLEANUP) hydrOXYzine HCl (ATARAX) 25 MG tablet Take 1 tablet by mouth every 8 hours as hhikdn89Discontinued (LIST CLEANUP) Active Problems ProblemNoted DateDiagnosed Date14 weeks gestation of ayksljvgo02/13/2025PTSD (post-traumatic stress disorder)12/21/2022ipolar affective disorder, current episode oanlqiypj88/19/2023ttention deficit hyperactivity disorder (ADHD), combined type3CommentsYes Encounters DateTypeDepartmentCare QceiDubmfopnzfe20/21/2025 1:00 PM EDTOffice Visit [facility] [address] [place] [id number] Joe Zuleta DO Neck pain (Primary Dx); Chronic bilateral thoracic back pain; Dermoid cyst of skin of nose; Benign skin lesion of ijazpyyf53/26/2025Orders Only [address] [phone] Provider, MD Sarbjit from Last 3 Months Immunizations ImmunizationAdministration DatesNext DueDTaP ditdiay5306/08/1999HPV Quadrivalent (Gardasil)12/13/2006,08/13/2006,06/13/2006Hep A, HAVRIX, VAQTA, (age 12m-18y), IM, 0.5mL11/12/2013,04/20/2010Hep B, ENGERIX-B, RECOMBIVAX-HB, (age - 19y), IM, 0.5mL11/12/2013Influenza Virus Dizpxqi4712/06/2015Influenza Whole 12/31/2012Influenza, FLUARIX, FLULAVAL, FLUZONE (age 6 mo+) and AFLURIA, (age 3 y+), Quadv PF, 0.5mL12/06/2015Meningococcal ACWY, MENACTRA (MenACWY-D), (age 9m- 55y), IM, 0.5mL05/29/2008Poliovirus, IPOL, (age 6w+), SC/IM, 0.5mL06/08/1999 TDaP, ADACEL (age 10y-64y), BOOSTRIX (age 10y+), IM, 0.5mL05/29/2008Varicella, VARIVAX, (age 12m+), SC, 0.5mL02 Family History Medical HistoryRelationNameCommentsCancerMotherDarleneLung cancerRelationName StatusCommentsMotherDarleneAlive Social History Tobacco UseTypesPacks/DayYears UsedDateSmoking Tobacco: NeverSmokeless Tobacco: Never Tobacco Cessation:Counseling Given: No Alcohol UseStandard Drinks/WeekCommentsNot Currently0 (1 standard drink = 0.6 oz pure alcohol)[facility] UtilitiesAnswerDate RecordedIn the past 12 months has the [employer], gas, oil, or water [employer] threatened to shut off services in your home?No07/07/2024PHQ-2AnswerDate RecordedPHQ-9 Total Sctap150Exercise Vital SignAnswerDate RecordedOn average, how many days per week do you engage in moderate to strenuous exercise (like a brisk walk)?1 day07/06/2024On average, how many minutes do you engage in exercise at this level?30 min07/06/2024Hunger Vital SignAnswerDate RecordedWithin the past 12 months, you worried that your food would run out before you got the money to buymore.Never true07/07/2024 Within the past 12 months, the food you bought just didn't last and you didn't have money to get more.Never true07/07/2024PRAPARE - TransportationAnswerDate RecordedIn the past 12 months, has lack of transportation kept you from medical appointments or from getting medications?No07/07/2024In the past 12 months, has lack of transportation kept you from meetings, work, or from getting things needed for daily living?No07/07/2024Housing Stability Vital SignAnswerDate RecordedIn the last 12 months, was there a time when you were not able to pay the mortgage or rent on time?No07/07/2024In the past 12 months, how many times have you moved where you were living?t any time in the past 12 months, were you homeless or living in a skilled nursing (including now)?No07/07/2024 AUDIT-CAnswerDate RecordedQ1: How often do you have a drink containing alcohol? Never12/23/2024Q2: How many drinks containing alcohol do you have on a typical day when you are drinking?Patient does not drink12/23/2024Q3: How often do you have six or more drinks on one occasion?Never12/23/2024Food InsecurityAnswerDate RecordedWithin the past 12 months, you worried that your food would run out before you got the money to buymore.Within the past 12 months, the food you bought just didn't last and you didn't have money to get more.1 07/07/2024CommentsYesSex and Gender InformationValueDate RecordedSex Assigned at HslokRljlct50/20/2025 7:51 AM EDTLegal TgzKghtjj81/22/2025 2:08 PM EDTGender CwawslztOivulp79/20/2025 7:51 AM EDTSexual OrientationNot on file Last Filed Vital Signs Vital SignReadingTime TakenCommentsBlood Rmustnxs415/6212/23/2024 1:00 PM EDT Kkxgx388312/23/2024 1:00 PM HYXNdddsnnglfd68.2 ??C (97.2 ??F)12/23/2024 1:00 PM EDTRespiratory Rate--Oxygen Tevoyfeevt52%12/23/2024 1:00 PM EDTInhaled Oxygen Concentration--Dclwzt59.7 kg (136 lb)12/23/2024 1:00 PM LBEOgbjeb105.6 cm (5' 6 )12/23/2024 1:00 PM EDTBody Mass Index21.9512/23/2024 1:00 PM EDT Plan of Treatment Health MaintenanceDue DateLast DoneCommentsPolio vaccine (2 of 3 - 4-dose series)/07/1999HIV vwpeqb7008/29/2009Varicella vaccine (2 of 2 - 13+ 2-dose series)Hepatitis C mftpmp3908/29/2012Hepatitis B vaccine (2 of 3 - 19+ 3-dose series)Hepatitis A vaccine (2 of 2 - 2-dose series), 04/20/2010Pap smear06/ DTaP/Tdap/Td vaccine (3 - Td or Tdap), 06/08/1999Cervical cancer vmhbgw9408/29/2024HPV (without or with Pap)2024Flu vaccine (#1) 510/05/2015, 12/06/2015, 12/31/2012COVID-19 Vaccine ( season)2024Depression Rwhraffnqt92/05/715471/07/2024, 07/07/2024 Respiratory Syncytial Virus (RSV) or age 60 yrs+ (1 - 1-dose 75+ series)2069HPV vvtwkmsTdwzbpago99/11/2007, 08/13/2006, 06/13/2006 Meningococcal (ACWY) vaccineAged Out05/29/2008No longer eligible based on patient's age to complete this topicDepression QjsqdgLazflgmsitqt96/05/2025, 07/07/2024Hib vaccineAged OutNo longer eligible based on patient's age to complete this topicMeningococcal B vaccineAged OutNo longer eligible based on patient's age to complete this topicPneumococcal 0-49 years VaccineAged OutNo longer eligible based on patient's age to complete this topic Procedures Procedure NamePriorityDate/TimeAssociated DiagnosisCommentsUS BIOPHYSICAL PROFILE WO NON STRESS ARSFLCDXdrgmud06/25/2025 8:01 AM EDTfrom Last 3 Months Results * US BIOPHYSICAL PROFILE WO NON STRESS TESTING (11/27/2024 8:01 AM EDT) Anatomical RegionLateralityModalityPelvisOther Narrative Authorizing ProviderResult TypeResult StatusHistorical Provider MDIMG US ORDERABLESFinal Result from Last 3 Months Insurance Care Teams Team MemberRelationshipSpecialtyStart DateEnd Date Joe Zuleta DO [address] [place], [place] [id number] [facility]/16/24
--- OUTSIDE RECORDS SUMMARY | 2025-01-13 20:22 | XMS_ITS ---
Author Organization [facility] Source Produ ction (ClinicalSummary Clone) Address Unknown Care Team Providers Care Merchandising Representative Name Role Phone Unavailable Primary Care Physician Unavailab le Results * [UNITY] ANEUPLOIDY NIPT Performed by: Tealet Component Value Range Date Fraction 8.5% 07/18/2024 09:06 pm UTCRh(D) NIPTRhD SDLPGFHB48/16/2025 09:06 pm UTCSex Chromosome AneuploidyNOT JVRUIJQO64/16/2025 09:06 pm UTCMonosomy XLOW RISK <1 in , 09:06 pm UTCTrisomy 13LOW RISK <1 in , 09:06 pm UTCTrisomy 18LOW RISK <1 in , 09:06 pm UTCTrisomy 21LOW RISK <1 in 10, 09:06 pm UTCFetal QsiQAQYBF31/16/2025 09:06 pm UTCPregnancy SnsgczvbhURFHAYCBF33/16/2025 09:06 pm UTCFor detailed report, see PDFSee PDF 07/18/2024 09:06 pm UTC07/18/2024 09:06 pm UTC Social History Observation Value Start Date End Date
--- OUTSIDE RECORDS SUMMARY | 2025-01-13 20:22 | XMS_ITS | Encounter Summary ---
Author Organization [facility] Address [address] [place] [address] Care Team Providers Care Dimensional Inspector Name Role Phone Raleigh Collazo MD Primary Care Provider [phone] Encounter Details DateTypeDepartmentCare Team (Latest Contact Info)Vaxoppmjjfn41/30/2025Telephone [facility] [address] [address] Belinda Noble MA [address] [place] [address] Social History Tobacco UseTypesPacks/DayYears UsedDateSmoking Tobacco: NeverAlcohol [...] relatives?Never02/15/2024How often do you attend shinto or scientology services?Never4Do you belong to any clubs or organizations such as shinto groups, unions, fraternal or athletic isauro ups, or school groups?No02/15/2024How often do you attend meetings of the clubs or organizations you belong to?Never4Are you , , , , never , or living with a partner?Jwyhxvi8302/15/2024 AUDIT-CAnswerDate RecordedQ1: How often do you have [...] housing, medical care, and heating?Not hard at all02/15/2024[facility] [place] of Occupational Health - Occupational Stress QuestionnaireAnswerDate [...] were you homeless or living in a fci (including now)?No4Estimated Date of DeliveryComments Yes5Based on Interfaced EDDSex and Gender InformationValueDate Recorded Sex Assigned at BirthNot on fileLegal QudDruuwa00/15/2023 7:05 PM EDTGender IdentityNot on fileSexual OrientationNot on filedocumented as of this encounter Miscellaneous Notes * Telephone Encounter - Belinda Noble MA - 01/01/2025 11:07 AM EDT Boaz Florez called for an FYI: Pt was seen at there OB floor for her NST/BPP visit. Nurse states her results came out good. Pt had an 8/8 score and her IVETT was 14.9. Nurse said she will have her results faxed over. documented in this encounter Plan of Treatment DateTypeDepartmentCare Team (Latest Contact Info)Dsllwxzxflw95/18/2025 10:00 AM ESTRoutine [facility] [address] [place] [phone] Uriel Meade, [address] [place] [address] documented as of this encounter Visit Diagnoses Not on filedocumented in this encounter Care Teams Team MemberRelationshipSpecialtyStart DateEnd Date Raleigh Collazo MD [address] [place] [address] PCP - GeneralFamily Medicine08/28/22documented as of this encounter
--- OUTSIDE RECORDS SUMMARY | 2025-01-13 20:22 | XMS_ITS | Encounter Summary ---
Author Organization [facility] Address [address] [facility] [place] [address] Care Team Providers Care Neurodiagnostic Technologist Name Role Phone Raleigh Collazo MD Primary Care Provider [phone] Encounter Details DateTypeDepartmentCare Team (Latest Contact Info)Wjhnxgzlzar47/06/2025Telephone [facility] [address] [place] [address] Uriel Meade DO [address] [place], [facility] Social History Tobacco UseTypesPacks/DayYears UsedDateSmoking Tobacco: NeverAlcohol [...] friends or relatives?Never02/15/2024How often do you attend presybeterian or denominational services?Never4Do you belong to any clubs or organizations such as presybeterian groups, unions, fraternal or athletic isauro ups, or school groups?No02/15/2024How often do you attend meetings of the clubs or organizations you belong to?Never4Are you , , , , never , or living with a partner?Qmswhjr8802/15/2024 AUDIT-CAnswerDate RecordedQ1: How often do you have [...] housing, medical care, and heating?Not hard at all02/15/2024[facility] [place] of Occupational Health - Occupational Stress QuestionnaireAnswerDate [...] have you moved where you were living?0 12/13/2024At any time in the past 12 months, were you homeless or living in a nursing home (including now)?No4Estimated Date of DeliveryComments Yes5Based on Interfaced EDDSex and Gender InformationValueDate Recorded Sex Assigned at BirthNot on fileLegal PvzSozhbn77/15/2023 7:05 PM EDTGender IdentityNot on fileSexual OrientationNot on filedocumented as of this encounter Miscellaneous Notes * Telephone Encounter - Abbey Ragsdale LPN - 01/08/2025 9:18 AM EST FYI: Yaima called from [facility] and wanted to update that patient came in for her NST/BPP and this ws reactive and 10/10. documented in this encounter Plan of Treatment DateTypeDepartmentCare Team (Latest Contact Info)Dpsthtotlaq14/18/2025 10:00 AM ESTRoutine [facility] [address] [phone] Uriel Meade DO [address] [facility] [place] [address] documented as of this encounter Visit Diagnoses Not on filedocumented in this encounter Care Teams Team MemberRelationshipSpecialtyStart DateEnd Date Raleigh Collazo MD [address] [place] [address] PCP - GeneralFamily Medicine08/28/22documented as of this encounter
--- OUTSIDE RECORDS SUMMARY | 2025-01-13 20:22 | XMS_ITS | Encounter Summary ---
Author Organization [facility] Address [address] [facility] [place] [address] Care Team Providers Care Coin Machine Servicer Repairer Name Role Phone Raleigh Collazo MD Primary Care Provider [phone] Encounter Details DateTypeDepartmentCare Team (Latest Contact Info)Ymrqndicsem39/11/2025amboo flowsheet [facility] [address] [address] Uriel Meade DO [address] [place], [facility] Social History Tobacco UseTypesPacks/DayYears UsedDateSmoking Tobacco: NeverAlcohol [...] friends or relatives?Never02/15/2024How often do you attend jainism or mormonism services?Never4Do you belong to any clubs or organizations such as jainism groups, unions, fraternal or athletic isauro ups, or school groups?No02/15/2024How often do you attend meetings of the clubs or organizations you belong to?Never02/15/2024re you , , , , never , or living with a partner?Ezuoicc1402/15/2024 AUDIT-CAnswerDate RecordedQ1: How often do you have [...] housing, medical care, and heating?Not hard at all02/15/2024Fin[facility], [facility] [place] of Occupational Health - Occupational Stress QuestionnaireAnswerDate [...] were you homeless or living in a senior care (including now)?No4Estimated Date of DeliveryComments Yes5Based on Interfaced EDDSex and Gender InformationValueDate Recorded Sex Assigned at BirthNot on fileLegal NcrZbvtbx56/15/2023 7:05 PM EDTGender IdentityNot on fileSexual OrientationNot on filedocumented as of this encounter Plan of Treatment DateTypeDepartmentCare Team (Latest Contact Info)Dhlftrnivfl97/18/2025 10:00 AM ESTRoutine [facility] [address] [place] [address] Uriel Meade DO [address] [address] [place], [place] [address] documented as of this encounter Visit Diagnoses Not on filedocumented in this encounter Care Teams Team MemberRelationshipSpecialtyStart DateEnd Date Raleigh Collazo MD [address] [place] [address] PCP - GeneralFamily Medicine08/28/22documented as of this encounter
--- OUTSIDE RECORDS SUMMARY | 2025-01-13 20:22 | XMS_ITS | Clinical Summary ---
Author Organization [facility] Healthcare Address [address] [place] [address] Care Team Providers Care Sketch Maker Name Role Phone Raleigh Collazo MD Primary Care Provider [phone] Allergies Active AllergyReactionsCriticalityNoted DateCommentsDust Mite ExtractUnknown 08/28/2022 Medications MedicationSigDispense QuantityRefillsLast FilledStart DateEnd DateStatus budesonide-formoterol (Breyna) 80-4.5 MCG/ACT inhaler Indications:Mild intermittent asthma without complication (HCC)Inhale 2 puffs Daily Rinse mouth with water after use to reduce aftertaste and incidence of candidiasis. Do not swallow. 10.2 g 4Active fish oil concentrate ([place]-3) 1000 MG capsule Indications:Female infertility,Fallopian tube disorder,AnovulationTake 1 capsule (1 g) by mouth Daily 30 capsule 5Active Vit-Fe Fumarate-FA ( Vitamins) 28-0.8 MG tablet Indications:Female infertility,Fallopian tube disorder,AnovulationTake 1 tablet by mouth Daily 30 tablet 5Active cholecalciferol (Vitamin D-3) 25 MCG (1000 UT) tablet Indications:Female infertility,Fallopian tube disorder,AnovulationTake 1 tablet (25 mcg) by mouth Daily 60 tablet 4Active QUEtiapine (SEROquel) 50 MG tablet Take 50 mg by mouth in the morning and 50 mg before bedtime.Active ondansetron (Zofran) 8 MG tablet Take 8 mg by mouth every 8 (eight) hours if needed for nausea or vomiting 5Active polyethylene glycol, PEG, 3350 (Miralax) 17 g packet Take 17 g by mouth DailyActive OLANZapine (ZyPREXA) 2.5 MG tablet at bedtimeActive witch mark-glycerin (Tucks) pad Indications:Hemorrhoids, unspecified hemorrhoid typeApply topically if needed for irritation 50 each 5Active Active Problems ProblemNoted DateDiagnosed DateFallopian tube tllhtyug17/09/2025novulation 03/13/2024Female /09/5520Ijihsit32/16/2024 Assessment & Plan (02/18/2024 3:33 PM EST): Dr Collazo put in lab orders and [place] [facility] [place] with results Well woman exam with routine gynecological exam03/19/20235698Yhgzycp87/19/2023sthma 12/21/2022ttention deficit hyperactivity disorder (ADHD), combined type 12/21/2022TSD (post-traumatic stress disorder)12/21/2022ipolar affective disorder, current episode zvxbilely58/19/2023ipolar 1 hqonpjrr34/11/2023 Vhwejshgyku69/01/2011Estimated Date of GrznenxiVetyqcknBcz75/11/2025 Based on Interfaced [place] Encounters DateTypeDepartmentCare VqloRhprpgvdrre23/11/2025 9:30 AM ESTRoutine [facility] [address] [place] [address] Uriel Meade, 35 weeks gestation of ([facility]); Third trimester ([facility]); Encounter for in vitro fertilization; Hemorrhoids, unspecified hemorrhoid type; Bipolar 1 disorder ([facility]); PTSD (post-traumatic stress disorder)01/13/2025bstract [facility] [address] [place] [address] Uriel Meade DO 01/13/2025amboo flowsheet [facility] [address] [place] [address] Uriel Meade, DO 01/08/2025Telephone [facility] [address] [place] [address] Uriel Meade, DO 01/01/2025Telephone [facility] [address] [place] [address] Belinda Noble MA 12/31/2024 8:50 AM EDTRoutine [facility] [address] [place] [address] Dary Wilhelm PA Third trimester ([facility]); 33 weeks gestation of ([facility])12/31/2024 8:00 AM EDTAncillary Procedure [facility] [address] [place] [address] Encounter for in vitro thkzebyyihwyd61/24/2025bstract [facility] [address] [place] [address] Dayana Griffith [place] 12/25/2024Telephone [facility] [address] [place] [address] Dayana Griffith [place] 12/22/2024bstract [facility] [address] [place] [address] Dayana Griffith [place] 12/22/2024bstract [facility] [address] [place] [address] Dayana Griffith [place] 12/18/2024Telephone [facility] [address] [place] [address] Uriel Meade, DO 12/16/2024 9:30 AM EDTRoutine [facility] [address] [place] [address] Uriel Meade, DO Third trimester ([facility]); 31 weeks gestation of ([facility]); Encounter for in vitro fertilization; Hemorrhoids, unspecified hemorrhoid type12/16/2024amb flowsheet [facility] [address] [place] [phone] Uriel Meade, DO 12/11/2024bstract [facility] [address] [place] [address] Uriel Meade, DO 12/04/2024bstract [facility] [address] [place] [address] Uriel Meade, DO 12/02/2024 8:50 AM EDTRoutine [facility] [address] [place] [address] Dolores Caldwell, RACHAEL Anemia, unspecified type (Primary Dx); Third trimester ([facility]); 29 weeks gestation of ([facility]); Bipolar 1 disorder ([facility]); PTSD (post-traumatic stress disorder)12/02/2024[facility] flowsheet [facility] [address] [place] [address] Dolores Caldwell, RACHAEL 11/27/2024bstract [facility] [address] [place] [address] Uriel Meade, DO 11/24/2024bstract [facility] [address] [place] [address] Uriel Meade, DO 11/24/2024bstract [facility] [address] [place] [address] Uriel Meade, DO 11/18/2024 8:30 AM EDTRoutine [facility] [address] [place] [address] Uriel Meade DO 27 weeks gestation of ([facility]); Second trimester ([facility]); Hyperemesis of ([facility]); resulting from in vitro fertilization in second trimester ([facility]); Breech presentation, single or unspecified fetus ([facility])11/18/2024Telephone [facility] [address] [place] [address] Belinda Noble MA 11/18/2024amboo flowsheet [facility] [address] [place] [address] Uriel Meade DO 11/07/2024bstract [facility] [address] [place] [address] Dayana Griffith MA 11/05/2024Refill [facility] [address] [place] [address] Uriel Meade DO Other acute sinusitis, recurrence not izegpczax00/19/2025 8:50 AM EDTRoutine [facility] [address] [place] [address] Uriel Meade DO 23 weeks gestation of ([facility]); Second trimester ([facility]); Hyperemesis of ([facility]); resulting from in vitro fertilization in second trimester ([facility]); Diabetes mellitus rjzyqobyu30/19/2025amboo flowsheet [facility] [address] [place] [address] Uriel Meade DO from Last 3 Months Immunizations ImmunizationAdministration DatesNext DueDTaP, Ldqihudnntr17/05/2000HPV, Uxwmaxnezgcs15/11/2007,08/13/2006,06/13/2006Hep A, ped/adol, 2 dose11/12/2013, 04/20/2010Hep B, Adolescent or Nhuohutgg95/10/2014Hep B, adult05/18/2014, 03/30/2014IPV06/08/1999Influenza Whole12/31/2012Influenza, injectable, quadrivalent, preservative free12/06/2015MMR06/08/1999Meningococcal MCV4P 05/29/2008Tdap05/29/20088845Fodqexzgk31/16/2011 Family History Medical HistoryRelationNameCommentsNo Known ProblemsDaughterArthritisFatherLung cancerFatherHeart diseaseMaternal GrandfatherHypertensionMaternal Grandfather StrokeMaternal GrandfatherCancerMaternal GrandmotherHypertensionMaternal GrandmotherADD / ADHDMotherHypothyroidismMotherLung cancerMotherCervical cancer Paternal GrandmotherClotting disorderPaternal GrandmotherHypertensionPaternal GrandmotherADD / ADHDSiblingRelationNameStatusCommentsDaughterAliveFatherAlive Maternal GrandfatherAliveMaternal GrandmotherAliveMotherDeceasedPaternal GrandmotherAliveSiblingAlive Social History Tobacco UseTypesPacks/DayYears UsedDateSmoking Tobacco: Never Tobacco Cessation:Counseling Given: Not Answered Alcohol UseStandard Drinks/WeekCommentsNever0 (1 standard drink = 0.6 oz pure alcohol)caffeine: [id number] Health LiteracyAnswerDate RecordedHow often do you need to have someone help you when you read instructions, pamphlets, or other written material from your doctor or pharmacy?Never02/15/2024Social Connection and Isolation PanelAnswerDate RecordedIn a typical week, how many times do you talk on the phone with family, friends, or neighbors?More than three times a week02/15/2024How often do you get together with friends or relatives?Never 02/15/2024How often do you attend oriental orthodox or rastafarian services?Never02/15/2024o you belong to any clubs or organizations such as oriental orthodox groups, unions, fraternal or athletic groups, or school groups?No12/13/2024How often do you attend meetings of the clubs or organizations you belong to?Never02/15/2024re you , , , , never , or living with a partner?Cumnsze2102/15/2024UDIT-CAnswerDate RecordedQ1: How often do you have a drink containing alcohol?Monthly or less02/15/2024Q2: How many drinks containing alcohol do you have on a typical day when you are drinking?1 or Q3: How often do you have six or more drinks on one occasion?Never02/15/2024Overall Financial Resource Strain (CARDIA)AnswerDate RecordedHow hard is it for you to pay for the very basics like food, housing, medical care, and heating?Not hard at all02/15/2024[facility] - Occupational Stress QuestionnaireAnswerDate RecordedDo you feel stress - tense, restless, nervous, or anxious, or unable to sleep at night because yourmind is troubled all the time - these days?Very much02/15/2024Exercise Vital SignAnswerDate RecordedOn average, how many days per week do you engage in moderate to strenuous exercise (like a brisk walk)?0 days02/15/2024On average, how many minutes do you engage in exercise at this level?0 min02/15/2024Hunger Vital SignAnswerDate Recorded Within the past 12 months, you worried that your food would run out before you got the money to buymore.Never true02/15/2024Within the past 12 months, the food you bought just didn't last and you didn't have money to get more.Never true 02/15/2024RAPARE - TransportationAnswerDate RecordedIn the past 12 months, has lack of transportation kept you from medical appointments or from getting medications?No02/15/2024In the past 12 months, has lack of transportation kept you from meetings, work, or from getting things needed for daily living?No 02/15/2024Housing Stability Vital SignAnswerDate RecordedIn the last 12 months, was there a time when you were not able to pay the mortgage or rent on time?No 02/15/2024In the past 12 months, how many times have you moved where you were living?4At any time in the past 12 months, were you homeless or living in a chcf (including now)?No4Estimated Date of Delivery PeyxoiuvNkc65/11/2025Based on Interfaced EDDSex and Gender InformationValueDate RecordedSex Assigned at BirthNot on fileLegal WppMnrjiy56/15/2023 7:05 PM EDT Gender IdentityNot on fileSexual OrientationNot on file Last Filed Vital Signs Vital SignReadingTime TakenCommentsBlood Kuhrlpkg642/5801/13/2025 9:29 AM EST Izqwl966604/14/2024 2:48 PM RXQYoqlwlmzcmn54.9 ??C (98.4 ??F)04/14/2024 2:48 PM ESTRespiratory Rate--Oxygen Vgufoeilur52%04/14/2024 2:48 PM ESTInhaled Oxygen Concentration--Umfdjn66 kg (139 lb)01/13/2025 9:29 AM WDNHjchrr796.6 cm (5' 6 ) 04/14/2024 2:48 PM ESTBody Mass Index22.44004/14/2024 2:48 PM EST Plan of Treatment DateTypeDepartmentCare Team (Latest Contact Info)Abdrdkomdbk68/18/2025 10:00 AM ESTRoutine [facility] [address] [place] [address] Uriel Meade DO [address] [place], [place] [phone] Health MaintenanceDue DateLast DoneCommentsPneumococcal Vaccine: Pediatrics (0 to 5 Years) and At-Risk Patients (6 to 64 Years) (1 of 2 - PCV)2013 HPV/Jvwsxp915COVID-19 Vaccine (1 - season)2024Influenza Vaccine (#1)/05/2015, 12/31/2012Cervical Cancer Laieobles11/24/2028 Pap Smear, 08/27/2023, 03/19/2023, Additional history exists Procedures Procedure NamePriorityDate/TimeAssociated DiagnosisCommentsPOCT URINALYSIS VMSUUIXOZanpnay99/11/2025 9:36 AM EST 35 weeks gestation of ([facility]) Third trimester ([facility]) POCT URINALYSIS WZKHJOOPNgmwrfm33/29/2025 8:57 AM EDT 33 weeks gestation of ([facility]) US OB FOLLOW UP TRANSABDOMINAL VHURUOWBQarrttt94/29/2025 8:47 AM EDT Encounter for in vitro fertilization POCT URINALYSIS LTPBWTZDIgbehrd76/14/2025 9:46 AM EDT 31 weeks gestation of ([facility]) POCT URINALYSIS DDQLCLEAWumlwly77/30/2025 9:04 AM EDT Third trimester ([facility]) GLUCOSE TOLERANCE, 1 USXSCdvchbs90/16/2025 4:18 PM EDT Diabetes mellitus screening AJAXjdqryw91/16/2025 4:18 PM EDT Diabetes mellitus screening POCT URINALYSIS GFJNWIOWDhpurvq26/16/2025 8:46 AM EDT 27 weeks gestation of ([facility]) Second trimester ([facility]) POCT URINALYSIS RXIAROFYEpsnwnj62/19/2025 9:04 AM EDT 23 weeks gestation of ([facility]) Second trimester ([facility]) PAP FKWCVLggliea24/24/2025 12:00 AM EDTfrom Last 3 Months or Most Recently Relevant to Health Maintenance Results * (ABNORMAL) POCT urinalysis dipstick manually resulted (01/13/2025 9:36 AM EST) Only the most recent of6 resultswithin the time period is included. ComponentValueRef RangeTest MethodAnalysis TimePerformed AtPathologist Signature Color, UAYellowClarity, UACloudyGlucose, UANegativeNegative - 2000(110) ++++ mg/dLBilirubin, UANegativeNegative - 4(70) +++ mg/dLKetones, UANegativeNegative - 160(16) ++++ mg/dLSpec Grav, UA1.0151 - 1.03Blood, UANegativeNegative - 50 Mick/mcLpH, UA7.55 - 9Protein, UAPositiveNegative - 1999(20) ++++ mg/dL Urobilinogen, UA1.00.2 - 12 mg/dLLeukocytes, UAPositiveNegative - 500+++ Campos/mcL Comment:2+Nitrite, UANegativeNegative - PositiveSpecimen (Source)Anatomical Location / LateralityCollection Method / VolumeCollection TimeReceived TimeUrine 01/13/2025 9:36 AM EST Narrative Authorizing ProviderResult TypeResult StatusCorey Halina DOPOINT OF CARE TEST ENTER/EDIT ORDERABLESFinal Result * US OB follow up transabdominal approach [...] Restrepo MD Authorizing ProviderResult TypeResult StatusCorey Halina DOIMG OB US PROCEDURES Final Result * Glucose tolerance, 1 hour (11/18/2024 4:18 PM EDT)Specimen (Source)Anatomical Location / LateralityCollection Method / VolumeCollection TimeReceived Time BloodVenous blood specimen / Unknown Narrative Authorizing ProviderResult TypeResult StatusCorey Halina DOLAB BLOOD ORDERABLES Final ResultPerforming OrganizationAddressCity/State/ZIP CodePhone Number EXTERNAL LAB * CBC (11/18/2024 4:18 PM EDT)Specimen (Source)Anatomical Location / Laterality Collection Method / VolumeCollection TimeReceived TimeBloodVenous blood specimen / Unknown Narrative Authorizing ProviderResult TypeResult StatusCorey Halina DOLAB BLOOD ORDERABLES Final ResultPerforming OrganizationAddressCity/State/ZIP CodePhone Number EXTERNAL LAB * Pap Smear (08/26/2024 12:00 AM EDT)Specimen (Source)Anatomical Location / LateralityCollection Method / VolumeCollection TimeReceived TimeSwabCervical swab / Unknown Narrative Authorizing ProviderResult TypeResult StatusCorey Halina DOLAB CYTOLOGY ORDERABLESFinal ResultPerforming OrganizationAddressCity/State/ZIP CodePhone Number EXTERNAL LAB from Last 3 Months or Most Recently Relevant to Health Maintenance Insurance Care Teams Team MemberRelationsNapa State HospitalpecialtyStart DateEnd Date Raleigh Collazo MD [address] [place] [address] PCP - [facility]08/28/22
--- OUTSIDE RECORDS SUMMARY | 2025-01-13 20:22 | XMS_ITS | Clinical Summary ---
Author Organization [facility] Address [address] [place] [address] Phone Care Team Providers Care Blow Mold Machine Operator Name Role Phone Joe Zuleta DO Primary Care Provider + Allergies No known active allergies Medications MedicationSigDispense QuantityRefillsLast FilledStart DateEnd DateStatus pantoprazole (ProtoNix) 20 mg EC tablet Indications:Gastritis, presence of bleeding unspecified, unspecified chronicity, unspecified gastritis typeTake 1 tablet (20 mg) by mouth once daily for 20 days. Do not crush, chew, or split. 20 tablet 4Active pantoprazole (ProtoNix) 40 mg EC tablet Indications:Nausea and vomiting, unspecified vomiting typeTake 1 tablet (40 mg) by mouth once daily in the morning. Take before meals. Do not crush, chew, or split. 30 tablet /6Active no115/iron/folic acid ( 19 ORAL) Take 1 tablet by mouth once daily./5Active QUEtiapine (SEROquel) 50 mg tablet Take 1 tablet (50 mg) by mouth 2 times a day.5Active OLANZapine (ZyPREXA) 2.5 mg tablet Take 1 tablet (2.5 mg) by mouth 2 times a day.5Active pantoprazole (ProtoNix) 20 mg EC tablet Take 1 tablet (20 mg) by mouth once daily in the morning. Take before meals. Do not crush, chew, orsplit.Active acetaminophen (Tylenol) 650 mg suppository Indications:Nausea and vomiting, unspecified vomiting type,Chest pain, unspecified typeInsert 1 suppository (650 mg) into the rectum every 6 hours. 60 suppository 5Active ondansetron ODT (Zofran-ODT) 8 mg disintegrating tablet Indications:Nausea and vomiting, unspecified vomiting type,Chest pain, unspecified typeDissolve 1 tablet (8 mg) in the mouth every 8 hours if needed for nausea or vomiting. 20 tablet 5Active hydrOXYzine HCL (Atarax) 25 mg tablet Indications:Nausea and vomiting, unspecified vomiting type,Chest pain, unspecified typeTake 1 tablet (25 mg) by mouth every 8 hours if needed for itching or anxiety. 20 tablet 5Active capsicum (Zostrix) 0.075 % topical cream Indications:Nausea and vomiting, unspecified vomiting type,Chest pain, unspecified typeApply topically 3 times a day. 57 g 5Active calcium carb-mag hydrox-simeth (Mylanta Coat-Cool) 1,200 mg-270 mg -80 mg/10 mL suspension Indications:Nausea and vomiting, unspecified vomiting type,Chest pain, unspecified typeTake 10 mL by mouth every 8 hours if needed (heartburn). 355 mL 5Active Active Problems ProblemNoted DateDiagnosed Date14 weeks gestation of zugspjbke56/13/2025 Estimated Date of IiufeetuDsxfxaaoZzi40/11/2025Date entered prior to episode creation Social History Tobacco UseTypesPacks/DayYears UsedDateSmoking Tobacco: NeverSmokeless Tobacco: Never Tobacco Cessation:Counseling Given: Not Answered Humiliation, Afraid, Rape, and Kick questionnaireAnswerDate RecordedWithin the last year, have you been afraid of your partner or ex-partner?No08/15/2024Within the last year, have you been humiliated or emotionally abused in other ways by your partner or ex-partner?No08/15/2024Within the last year, have you been kicked, hit, slapped, or otherwise physically hurt by your partner or ex-partner?No08/15/2024Within the last year, have you been raped or forced to have any kind of sexual activity by your partner or ex-partner?No08/15/2024 AUDIT-CAnswerDate RecordedQ1: How often do you have a drink containing alcohol? Never08/15/2024Q2: How many drinks containing alcohol do you have on a typical day when you are drinking?Patient does not drink08/15/2024Q3: How often do you have six or more drinks on one occasion?Never08/15/2024Overall Financial Resource Strain (CARDIA)AnswerDate RecordedHow hard is it for you to pay for the very basics like food, housing, medical care, and heating?Not hard at all 08/15/2024PHQ-2AnswerDate RecordedPatient Health Questionnaire-2 Score1 08/15/2024Hunger Vital SignAnswerDate RecordedWithin the past 12 months, you worried that your food would run out before you got the money to buymore.Never true08/15/2024Within the past 12 months, the food you bought just didn't last and you didn't have money to get more.Never true08/15/2024PRAPARE - TransportationAnswerDate RecordedIn the past 12 months, has lack of transportation kept you from medical appointments or from getting medications?No 08/15/2024In the past 12 months, has lack of transportation kept you from meetings, work, or from getting things needed for daily living?No08/15/2024 Estimated Date of SdabgiflBafvcymnBtb06/11/2025Date entered prior to episode creationSex and Gender InformationValueDate RecordedSex Assigned at LguapPyrgia78/13/2025 2:14 AM EDTLegal EpaIpdpvk49/11/2025 9:17 AM EDTGender TaopltutMsuajl58/13/2025 2:14 AM EDTSexual OrientationNot on file Last Filed Vital Signs Vital SignReadingTime TakenCommentsBlood Ykhnuozr322/8208/15/2024 3:53 PM EDT Fjfpq670508/15/2024 3:53 PM CEUJqsblsmmtgf89.9 ??C (98.4 ??F)08/15/2024 3:53 PM EDTRespiratory Mqhk808708/15/2024 3:53 PM EDTOxygen Poxrhbmziy18%08/15/2024 3:53 PM EDTInhaled Oxygen Concentration--Cjxwiw90.6 kg (116 lb)08/14/2024 10:08 PM ZKBIrxiwb784.6 cm (5' 6 )08/14/2024 10:08 PM EDTBody Mass Index18.72008/14/2024 10:08 PM EDT Plan of Treatment Health MaintenanceDue DateLast DoneCommentsHIV Lkrglnplu26/27/1995Lipid Panel 1994IPV Vaccines (2 of 3 - 4-dose series)Hepatitis C Azebliucp71/27/2013Pneumococcal Vaccine: Pediatrics and At-Risk Adult Patients (1 of 2 - PCV)2013Hepatitis A Vaccines (2 of 2 - 2-dose series)05/12/2014 11/12/2013, 04/20/2010Hepatitis B Vaccines (3 of 3 - 19+ 3-dose series) , 03/30/2014, 11/12/2013Cervical Cancer Sxihlczep05/27/2016 HPV/Enxebe5408/30/2015Pap Smear08/30/2015DTaP/Tdap/Td Vaccines (3 - Td or Tdap) , 06/08/1999Yearly Adult Vserkgsh87/ Influenza Vaccine (#1)/05/2015, 12/31/2012COVID-19 Vaccine ( - season)2024RSV High Risk: (Elderly (60+) or Population) (1 - Risk 1-dose series)12/18/2024Zoster Vaccines (1 of 2)2044 04/20/2010MMR GysneuawUrsggqikn34/05/2000HPV KizqpwxnGcnzhcyqj91/11/2007, 08/13/2006, 06/13/2006Meningococcal VaccineAged Out05/29/2008No longer eligible based on patient's age to complete this topicHIB VaccinesAged OutNo longer eligible based on patient's age to complete this topicRotavirus VaccinesAged Out No longer eligible based on patient's age to complete this topic Insurance Advance Directives For more information, please contact: [phone] (Available ) * Full Code (Latest Code Status on File) Date ActivatedDate InactivatedComments08/15/2024 3:05 AMQuestionAnswerComments Plan of Care:* Code Status Discussion Not Completed Decision Maker:* Provider Rationale:* Patient condition does not warrant discussion Care Teams Team MemberRelationshipSpecialtyStart DateEnd Date Joe Zuleta DO [address] [place] [address] [facility] - [facility]
--- OUTSIDE RECORDS SUMMARY | 2025-01-13 20:22 | XMS_ITS | Encounter Summary ---
Author Organization [facility] Address [address] [facility] [place] [address] Care Team Providers Care Electrical Drafter Name Role Phone Raleigh Collazo MD Primary Care Provider [phone] Encounter Details DateTypeDepartmentCare Team (Latest Contact Info)Lilxedspbft74/11/2025bstract [facility] [address] [address] Uriel Meade DO [address] Radha Arreaga, [facility] Social History Tobacco UseTypesPacks/DayYears UsedDateSmoking Tobacco: NeverAlcohol [...] friends or relatives?Never02/15/2024How often do you attend hoahaoism or caodaism services?Never4Do you belong to any clubs or organizations such as hoahaoism groups, unions, fraternal or athletic isauro ups, or school groups?No02/15/2024How often do you attend meetings of the clubs or organizations you belong to?Never4Are you , , , , never , or living with a partner?Oliqoqk2602/15/2024 AUDIT-CAnswerDate RecordedQ1: How often do you have [...] housing, medical care, and heating?Not hard at all02/15/2024[facility] [place] [facility] - Occupational Stress QuestionnaireAnswerDate [...] Recorded Sex Assigned at BirthNot on fileLegal SlcKuriaf52/15/2023 7:05 PM EDTGender IdentityNot on fileSexual OrientationNot on filedocumented as of this encounter Plan of Treatment DateTypeDepartmentCare Team (Latest Contact Info)Swkplxmgevz81/18/2025 10:00 AM ESTRoutine [facility] [address] [place] [phone] Uriel Meade DO [address] [place], [place] [id number] documented as of this encounter Visit Diagnoses Not on filedocumented in this encounter Care Teams Team MemberRelationshipSpecialtyStart DateEnd Date Raleigh Collazo MD [address] [place] [address] PCP - GeneralFamily Medicine08/28/22documented as of this encounter
--- OUTSIDE RECORDS SUMMARY | 2025-01-13 20:22 | XMS_ITS | Patient Health Record ---
Author Organization [facility] es Address [address] [place] [address] Care Team Providers Care Civil Laboratory Technician Name Role Phone Karis Varela Primary Care Provider [phone] Reason For Referral No Information Social History Sex Assigned At : Social [...] hurting yourself in some wayNot at allTotal Anzrf89Vbqtllsdloeio Severe Depression Problems Problem Type SNOMED Code ICD Code Onset Dates Problem Status W/U Status Risk Notes Problem Mood disorder (52370017) Mood disorder (F 39) ActiveconfirmedProblemMixed anxiety and depressive disorder (870661444)Mixed anxiety and depressive disorder (F41.8)Activeconfirmed Encounters Encounter Location Date Provider Diagnosis [address] [place] [address] 01/06/2025 Karis Varela Mood disorder F39 and Mixed anxiety and depressive disorder F41.8 Assessments Encounter Date Diagnosis (ICD Code) Assessment Notes Treatment Notes Treatment Clinical Notes Section Notes 01/06/2025 Mood disorder (ICD-10 - F39) 01/06/2025Mixed anxiety and depressive disorder (ICD-10 - F41.8) Plan Of Treatment Next Appt Details Provider Name:Karis serrano, 01/14/2025 10:00:00 AM, [address] [place], [address], Provider Name:Karis serrano, 01/19/2025 09:00:00 AM, [address] [place], [address], Insurance Providers Payer Name Payer Address Payer Phone Subscriber Number Group Number Insured Name Patient Relationship to Insured Coverage Start Date Coverage End Date ANTHEM Primary [address] [place] [id number] [id number] JORGENSEN Self - patient is the insured
--- OUTSIDE RECORDS SUMMARY | 2025-01-13 20:22 | XMS_ITS | Clinical Summary ---
Author Organization [facility] Address [id number] [address] [place] [address] Care Team Providers Care Conduit Reamer Operator Name Role Phone Joe Zuleta DO Primary Care Provider Allergies Active AllergyReactionsCriticalityNoted DateCommentsHouse Dust Mite08/18/2024 Medications MedicationSigDispense QuantityRefillsLast FilledStart DateEnd DateStatus cholecalciferol 1,000 units tablet Take 1 tablet (1,000 Units total) by mouth in the morning.Active busPIRone (BUSPAR) 5 mg tablet Take 1 tablet (5 mg total) by mouth 3 (three) times a day.Active sucralfate (CARAFATE) 100 mg/mL suspension Take 10 mL (1,000 mg total) by mouth in the morning and 10 mL (1,000 mg total) at noon and 10 mL (1,000 mg total) in the evening and 10 mL (1,000 mg total) before bedtime.Active ARIPiprazole (ABILIFY) 5 mg tablet Take 1 tablet (5 mg total) by mouth in the morning.Active VIT 11-HULS-JDCBG-DHA ORAL Take by mouth.Active omega-3 acid ethyl esters (LOVAZA) 1 gram capsule Take 2 capsules (2 g total) by mouth in the morning and 2 capsules (2 g total) before bedtime.Active budesonide-formoteroL (SYMBICORT) 80-4.5 mcg/actuation inhaler Inhale 2 puffs in the morning and 2 puffs before bedtime. As needed.Active QUEtiapine (SEROquel) 50 mg tablet Take 1 tablet (50 mg total) by mouth in the morning and 1 tablet (50 mg total) before bedtime.Active OLANZapine (ZyPREXA) 2.5 mg tablet Take 1 tablet (2.5 mg total) by mouth every 8 (eight) hours as needed.Active doxylamine (UNISOM) 25 mg tablet Indications:16 weeks gestation of ,Hyperemesis of pregnancyTake 1 tablet (25 mg total) by mouth nightly as needed for sleep. 90 tablet 5Active pyridoxine, vitamin B6, (B-6) 25 mg tablet Indications:16 weeks gestation of ,Hyperemesis of pregnancyTake 1 tablet (25 mg total) by mouth 3 (three) times a day. 90 tablet 5Active thiamine HCl (VITAMIN B-1) 50 mg tablet Indications:16 weeks gestation of ,Hyperemesis of pregnancyTake 2 tablets (100 mg total) by mouth in the morning. 90 tablet 5Active simethicone (MYLICON) 80 mg chewable tablet Indications:16 weeks gestation of ,Hyperemesis of pregnancyChew 1 tablet (80 mg total) and swallow every 6 (six) hours as needed for flatulence. 30 tablet 5Active meclizine (ANTIVERT) 25 mg tablet Indications:16 weeks gestation of ,Hyperemesis of pregnancyChew 1 tablet (25 mg total) and swallow 3 (three) times a day as needed for dizziness or nausea. 30 tablet 5Active blood-glucose sensor (FREESTYLE MARY 3 PLUS SENSOR) device Indications:16 weeks gestation of ,Hyperemesis of ,Cyclical vomiting with nauseaWear for 15 d and change 2 each 5Active pantoprazole (PROTONIX) 20 mg EC tablet Indications:16 weeks gestation of ,Hyperemesis of pregnancyTAKE 1 TABLET(20 MG) BY MOUTH IN THE MORNING 90 tablet 5Active Active Problems ProblemNoted DateDiagnosed DateHyperemesis of jclymuhtq26/02/2025Marijuana use during mjetjtniw48/02/2025Pregnancy resulting from in vitro fertilization in second mfpsymodw95/02/2025Fetal renal anomaly, single olrksklss63/02/2025 Circumvallate placenta in third srvsorsux29/02/2025Estimated Date of ZdnzmvnxZysskxluIno24/11/2025Based on Other Basis, Patient had embryo transfer on 05/27/24 with a fresh embryo/oocyte Encounters DateTypeDepartmentCare WoioLnswzrbdozc50/13/2025Telephone Maternal- Medicine at [address] [phone] Carolann Nolen RN 12/09/2024 11:30 AM EDTTelemedicine Maternal- Medicine at [address] [phone] Mario Alberto Yung MD 30 weeks gestation of (Primary Dx)12/09/20245111Ncthuq31/03/2025Refill Maternal- Medicine at [address] [phone] Mario Alberto Yung MD 16 weeks gestation of ; Hyperemesis of diruqwrep35/02/2025Orders Only [facility] Certified Nurse Splicer Helper - [address] [address] Salina Garcia RN renal anomaly, single gestation (Primary Dx); Marijuana use during ; resulting from in vitro fertilization in second trimester; 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 vsizwmtqh17/02/6230Hrtprp39/05/2025 8:30 AM EDT Telemedicine Maternal- Medicine at [address] [phone] Mario Alberto Yung MD 16 weeks gestation of ; Hyperemesis of afgxshkpn81/05/2025Orders Only Maternal- Medicine at [place] [address] [place] [address] Lexi Maya RN Hyperemesis of (Primary Dx); renal anomaly, single gestation; Marijuana use during ; 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; Nausea and vomiting during ; Poor weight gain of , second trimester; In vitro fertilization; 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, antepartum 11/07/20243811Lqyvxl46Travelfrom Last 3 Months Family History Medical HistoryRelationNameCommentsArthritisFatherLung cancerFatherHeart disease Maternal GrandfatherHypertensionMaternal GrandfatherStrokeMaternal Grandfather CancerMaternal GrandmotherHypertensionMaternal GrandmotherADD / ADHDMother HypothyroidismMotherLung cancerMotherCervical cancerPaternal GrandmotherClotting disorderPaternal GrandmotherHypertensionPaternal GrandmotherRelationNameStatus CommentsFatherMaternal GrandfatherMaternal GrandmotherMotherDeceasedPaternal Grandmother Social History Tobacco UseTypesPacks/DayYears UsedDateSmoking Tobacco: NeverSmokeless Tobacco: Never Tobacco Cessation:Counseling Given: Not Answered Alcohol UseStandard Drinks/WeekCommentsNot Currently0 (1 standard drink = 0.6 oz pure alcohol)ChildcareAnswerDate ZpqkqbimPnyloiiskNdjukqu20/10/2019Employment AnswerDate EuovcyyoNybgacjcaaDipxnur36/10/2019Hunger ScreeningAnswerDate RecordedWithin the past 12 months we worried whether our food would run out before we got money to buy more.Never True09/02/2024Within the past 12 months the food we bought just didn't last and we didn't have money to get more.Never True09/02/2024Estimated Date of BxkchqjnOyhovrqjDre78/11/2025Based on Other Basis, Patient had embryo transfer on 05/27/24 with a fresh embryo/oocyte Sex and Gender InformationValueDate RecordedSex Assigned at BirthNot on file Legal JiiLczcwm91/02/2025 12:00 PM EDTGender IdentityNot on fileSexual OrientationNot on file Last Filed Vital Signs Vital SignReadingTime TakenCommentsBlood Yrxgeqxf076/7107 8:02 AM EDT Qylfm501209/02/2024 8:02 AM EDTTemperature--Respiratory Rate--Oxygen Saturation-- Inhaled Oxygen Concentration--Fbaepv66.8 kg (123 lb)10/03/2024 9:04 AM EDTHeight 167.6 cm (5' 6 )10/03/2024 9:04 AM EDTBody Mass Index19.8508 9:04 AM EDT Plan of Treatment Health MaintenanceDue DateLast DoneCommentsDepression Octixpxgx40/27/2007 DTaP,Tdap and Td Vaccines (3 - Td or Tdap), 06/08/1999 Influenza Avefknj34, 12/31/2012RSV ( or age 60+ yrs) (1 - Risk 1-dose series)12/18/2024dult BMI Bxmkzoxwl72/01/2026 10/03/2024Tobacco Shbeyncof91Pap Smear, 08/27/2023, 03/19/2023 Medical Devices Not on file Procedures Procedure NamePriorityDate/TimeAssociated DiagnosisCommentsUS [facility], 1 SCDNWEcjwppf11/02/2025 9:26 AM EDT Hyperemesis of renal anomaly, single gestation Marijuana use during 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 Anatomical RegionLateralityModalityOB-GYNUltrasoundSpecimen (Source)Anatomical Location / LateralityCollection Method / VolumeCollection TimeReceived Time 12/04/2024 9:12 AM EDT Narrative 12/05/2024 5:30 PM EDT NAME: ??JAMEEL GRIGGS : 1995 SEX: F Accession Number: [id number] ORDERING PHYSICIAN: MARIO ALBERTO YUNG REFERRING PHYSICIAN: MARZENA JARRELL Coding Procedures ? 52487: Ultrasound, uterus, real time with image documentation, follow up,transabdominal ? approach per fetus Indication resulting from assisted reproductive technology , Known or suspected damage to fetus by drugs , Malformation of placenta, Supervision of high risk -right pelvic kidney. History OB History ? 3. Para 1 ? U2O2J9Y0 Current Cell free DNA ?Low risk analysis Maternal Assessment Physical Exam ??Height 168 cm, 5 ft 6 in. Weight 59 kg, 131 lb. Initial weight 57 kg, 125 lb. BMI 21.14 kg/m??. Initial ? BMI 20.18 kg/m??. Weight gain 3 kg, 6 lb Method Transabdominal ultrasound examination. Colvin . Number of fetuses: 1 Dating LMP on: ?05/08/2024 GA by LMP ?30 w + 0 d RENO by LMP: ?02/12/2025 Conception: ?IVF Embryo transfer on: ?05/27/2024 IVF / ET ? 5 d GA by IVF / ET 30 w + 0 d RENO by IVF / ET: ? 02/12/2025 Ultrasound examination on: ? 12/04/2024 GA by U/S based upon: ??AC, BPD, Femur, HC GA by U/S ?30 w + 3 d RENO by U/S: ?02/09/2025 Assigned: ?based on the IVF / ET date, selected on 09/02/2024 Assigned GA (weeks days) ? 30 w + 0 d Assigned RENO: ??02/12/2025 General Evaluation Cardiac activity Present. FHR 132 bpm. Presentation: cephalic Placenta: Placental site: anterior, circumvallate, previously documented away from cervical os Umbilical cord: Cord vessels: 3 vessel cord. Insertion site: documented previously Amniotic fluid: Amount of AF: normal amount. MVP 7.2 cm Biometry Standard BPD ?76.6 mm 30w 5d 61% Hadlock OFD ?97.0 mm 31w 2d 83% Louann HC ? 276.2 mm ?30w 1d 21% Hadlock Cerebellum tr ??37.7 mm 30w 6d 64% Hill AC ? 279.6 mm ?32w 0d 93% Hadlock Femur ??54.1 mm 28w 4d 8% Hadlock Humerus ?50.3 mm 29w 3d 39% Louann HC / AC ?0.99 EFW ?1,622 g ??62% Hadlock EFW (lb) ? 3 lb EFW (oz) ? 9 oz EFW by: ?Hadlock ([id number]-GR-SA-FL) Extended Tibia ??47.1 mm 28w 4d 12% Louann Vamp Creaser ? 2.1 mm CM ? 5.7 mm ?? 16% Nicolaides Head / Face / Neck Cephalic index 0.79 ? 47% Nicolaides Extremities / Bony Struc FL / BPD ? 0.71 FL / HC ?0.20 FL / AC ?0.19 Other Structures FHR ?132 bpm Anatomy The following structures appear normal: Head/Neck: Cranium. Lateral ventricles. Cavum septi pellucidi. Cerebellum. Cisterna magna. Vermis. Heart/Thorax: 4-chamber view. Cardiac position. Cardiac axis. Cardiac size. Cardiac rhythm. ? Diaphragm. Abdomen: Stomach. Kidneys. Bladder. Maternal Structures Uterus Visualized Cervix Suboptimal ? Approach - Transabdominal Right Ovary ?Visualized ? Size 2.6 cm x 1.4 cm x 1.5 cm. Vol 2.8 cm?? Left Ovary ? Not visualized Cul de Sac ? Suboptimal Impression Single live intrauterine at 30w 0d. Normal growth. EFW measures at the 62%, AC measures at the 93%. Amniotic fluid MVP measures 7.2 cm. Known circumvallate placenta is again visualized. Known right pelvic kidney again visualized. Recommendations Please see [facility] recommendations from prior clinical and/or ultrasound report documentation. The patient is scheduled in four weeks for follow up growth ultrasound. Subsequent follow up or other follow up as clinically determined by primary OB provider unless otherwise specified by MFM. Results forwarded to ordering provider so they can follow up with the patient as necessary. Procedure Note Aisha Costa MD - 12/05/2024 NAME: JAMEEL GRIGGS : 1995 SEX: F Accession Number: [id number] ORDERING PHYSICIAN: MARIO ALBERTO YUNG REFERRING PHYSICIAN: MARZENA JARRELL Coding Procedures 10611: Ultrasound, uterus, real time with image documentation, follow up, transabdominal approach per fetus Indication resulting from assisted reproductive technology , Known orsuspected damage to fetus by drugs , Malformation of placenta, Supervision of high risk -right pelvic kidney. History OB History 3. Para 1 [id number] Current Cell free DNA Low risk analysis Maternal Assessment Physical Exam Height 168 cm, 5 ft 6 in. Weight 59 kg, 131 lb. Initialweight 57 kg, 125 lb. BMI 21.14 kg/m??. Initial BMI 20.18 kg/m??. Weight gain 3 kg, 6 lb Method Transabdominal ultrasound examination. Colvin . Number of fetuses: 1 Dating LMP on: 05/08/2024 GA by LMP 30 w + 0 d RENO by LMP: 02/12/2025 Conception: IVF Embryo transfer on: 05/27/2024 IVF / ET 5 d GA by IVF / ET 30 w + 0 d RENO by IVF / ET: 02/12/2025 Ultrasound examination on: 12/04/2024 GA by U/S based upon: AC, BPD, Femur, HC GA by U/S 30 w + 3 d RENO by U/S: 02/09/2025 Assigned: based on the IVF / ET date, selected on 09/02/2024 Assigned GA (weeks days) 30 w + 0 d Assigned RENO: 02/12/2025 General Evaluation Cardiac activity Present. FHR 132 bpm. Presentation: cephalic Placenta: Placental site: anterior, circumvallate, previously documentedaway from cervical os Umbilical cord: Cord vessels: 3 vessel cord. Insertion site: documented previously Amniotic fluid: Amount of AF: normal amount. MVP 7.2 cm Biometry Standard BPD 76.6 mm 30w 5d 61% Hadlock OFD 97.0 mm 31w 2d 83% Louann HC 276.2 mm 30w 1d 21% Hadlock Cerebellum tr 37.7 mm 30w 6d 64% Hill AC 279.6 mm 32w 0d 93% Hadlock Femur 54.1 mm 28w 4d 8% Hadlock Humerus 50.3 mm 29w 3d 39% Louann HC / AC 0.99 EFW 1,622 g 62% Hadlock EFW (lb) 3 lb EFW (oz) 9 oz EFW by: Hadlock ([id number]-SN-MA-FL) Extended Tibia 47.1 mm 28w 4d 12% Louann Vamp Creaser 2.1 mm CM 5.7 mm 16% Nicolaides Head / Face / Neck Cephalic index 0.79 47% Nicolaides Extremities / Bony Struc FL / BPD 0.71 FL / HC 0.20 FL / AC 0.19 Other Structures FHR 132 bpm Anatomy The following structures appear normal: Head/Neck: Cranium. Lateral ventricles. Cavum septi pellucidi. Cerebellum. Cisterna magna. Vermis. Heart/Thorax: 4-chamber view. Cardiac position. Cardiac axis. Cardiacsize. Cardiac rhythm. Diaphragm. Abdomen: Stomach. Kidneys. Bladder. Maternal Structures Uterus Visualized Cervix Suboptimal Approach - Transabdominal Right Ovary Visualized Size 2.6 cm x 1.4 cm x 1.5 cm. Vol 2.8 cm?? Left Ovary Not visualized Cul de Sac Suboptimal Impression Single live intrauterine at 30w 0d. Normal growth. EFW measures at the 62%, AC measures at the 93%. Amniotic fluid MVP measures 7.2 cm. Known circumvallate placenta is again visualized. Known right pelvic kidney again visualized. Recommendations Please see [facility] recommendations from prior clinical and/or ultrasoundreport documentation. The patient is scheduled in four weeks for follow up growth ultrasound. Subsequent follow up or other follow up as clinically determined byprimary OB provider unless otherwise specified by [facility]. Results forwarded to ordering provider so they can follow up with thepatient as necessary. Authorizing ProviderResult TypeResult StatusMario Alberto Yung MDIMG ORDERABLESFinal Result from Last 3 Months Insurance Care Teams Team MemberRelationshipSpecialtyStart DateEnd Date Joe Zuleta DO [address] [place] [address] [facility] - [facility]24
--- OUTSIDE RECORDS SUMMARY | 2025-01-13 20:23 | XMS_ITS | CCD ---
Author Organization [facility] Care Team Providers Care Digital Marketing Manager Name Role Phone YASMIN MARTINEZ Consulting Unavailable CAROLYNE COLLAZO Primary Care Unavailable YASMIN MARTINEZ Admitting Unavailable YASMIN MARTINEZ Attending Unavailable GIGI COBB Consulting Unavailable KARILDEFONSOK, YASMIN Admitting Unavailable YSAMIN MARTINEZ Attending Unavailable YASMIN MARTINEZ Consulting Unavailable YASMIN MARTINEZ Consulting Unavailable YASMIN MARTINEZ Admitting Unavailable YASMIN MARTINEZ Attending Unavailable YASMIN MARTINEZ Primary Care Unavailable YASMIN MARTINEZ Admitting Unavailable YASMIN MARTINEZ Attending Unavailable Uriel Meade DO R Unavailable Unavailable Primary Care Provider UnavailKARINA Tilley Attending Unavailable Carolyne Collazo Primary Care Physician [phone] GWEN DANIELSON Attending Unavailable Alex Knutson ATyrone Referring Unavailable Jerome Knutsond ATyrone Admitting Unavailable Alex Knutson Attending Unavailable Alex Knutson Attending Unavailable Carolyne Collazo Referring Unavailable Alex Knutson Referring Unavailable Alex Knutson Attending Unavailable Alex Knutson Admitting Unavailable Carolyne Collazo MD Primary Care Provider Carolyne Collazo Attending Unavailable Carolyne Collazo Admitting Unavailable Carolyne Collazo Attending Unavailable Carolyne Collazo Admitting Unavailable MD JADE LEDBETTER Attending Unavailable MD JADE LEDBETTER Admitting Unavailable MD JADE LEDBETTER Attending Unavailable MD JADE LEDBETTER Admitting Unavailable MD JADE LEDBETTER Attending Unavailable MD JADE LEDBETTER Admitting Unavailable MD JADE LEDBETTER Attending Unavailable MD JADE LEDBETTER Admitting Unavailable MD JADE LEDBETTER Attending Unavailable MD JADE LEDBETTER Referring Unavailable MD JADE LEDBETTER Admitting Unavailable MD JADE LEDBETTER Attending Unavailable MD JADE LEDBETTER Admitting Unavailable MD JADE LEDBETTER Referring Unavailable MD JADE LEDBETTER Attending Unavailable MD JADE LEDBETTER Admitting Unavailable JADE LEDBETTER Admitting Unavailable JADE LEDBETTER Attending Unavailable JADE LEDBETTER Referring Unavailable JADE LEDBETTER Admitting Unavailable JADE LEDBETTER Attending Unavailable JADE LEDBETTER Referring Unavailable JADE LEDBETTER Admitting Unavailable JADE LEDBETTER Attending Unavailable MD JADE LEDBETTER Admitting Unavailable MD JADE LEDBETTER Attending Unavailable MD JADE LEDBETTER Attending Unavailable MD JADE LEDBETTER Admitting Unavailable JADE LEDBETTER Attending Unavailable JADE LEDBETTER Admitting Unavailable MD JADE LEDBETTER Referring Unavailable MD JADE LEDBETTER Attending Unavailable MD JADE LEDBETTER Admitting Unavailable MD JADE LEDBETTER Admitting Unavailable MD JADE LEDBETTER Attending Unavailable MD JADE LEDBETTER Referring Unavailable JADE LEDBETTER Attending Unavailable JADE LEDBETTER Admitting Unavailable JADE LEDBETTER Admitting Unavailable JADE LEDBETTER Attending Unavailable JADE LEDBETTER Admitting Unavailable JADE LEDBETTER Attending Unavailable JADE LEDBETTER Referring Unavailable MD JADE LEDBETTER Attending Unavailable MD JADE LEDBETTER Referring Unavailable MD JADE LEDBETTER Admitting Unavailable Johny Laura Attending Unavailable DO Samantha QUINN Attending UnavailDO Samantha James Admitting UnavailMD JADE Steve Consulting Unavailable Hospitalist Post Disch, Results Reviewer Consult ing Unavailable Saundra Verdugo Consulting Unavailable MD Saundra Verdugo Consulting Unavailable Saundra Verdugo Consulting Unavailable Saundra Verdugo Consulting Unavailable Saunrda Verdugo Consulting Unavailable Saundra Verdugo Consulting Unavailable Saundra Verdugo Consulting Unavailable Saundra Verdugo Consulting Unavailable Saundra Verdugo Consulting Unavailable Saundra Verdugo Consulting Unavailable Saundra Verdugo Consulting Unavailable MD JADE LEDBETTER Consulting Unavailable DO Samantha QUINN Admitting UnavailDO Samantha James Attending UnavailSaundra Danielson Consulting Unavailable MD Saundra Verdugo Consulting Unavailable Saundra Verdugo Consulting Unavailable Lucina, Saundra Peace Consulting Unavailable Lucina, Saundra Peace Consulting Unavailable Lucina, Saundra Peace Consulting Unavailable Lucina, Saundra Peace Consulting Unavailable Lucina, Saundra Peace Consulting Unavailable Lucina, Saundra Peace Consulting Unavailable Lucina, Saundra Peace Consulting Unavailable Lucina, Saundra Peace Consulting Unavailable Jade Ledbetter Admitting Unavailable Jade Ledbetter Attending Unavailable Jade Ledbetter Referring Unavailable Carolyne Collazo [facility] Unavailable Song , [facility] Primary Care Provider [facility] MILAN LERNER Attending Unavailable SONG [facility] Unavailabl e MILAN LERNER Referring Unavailable SONG [facility] Unavailabl e Josh Gilbert Attending Unavailable Samantha QUINN Admitting Unavailable Basim Diaz Consulting Unavailable Bk Garduno Attending Unavailable Saundra Verdugo Attending Unavailable Saundra Verdugo Admitting Unavailable Unavailable Primary Care Provider Unavailabl e SONG [facility] Unavailabl e ROSMERY SANDOVAL Admitting Unavailable ROSMERY SANDOVAL Attending Unavailable MAYAR DOBSON Referring Unavailable SONG [facility] Unavailabl e PRABHU FRIEDMAN Referring Unavailable [facility] Unavailabl e Song GARDNER [place] Primary Care Provider Song GARDNER, [place] Primary [facility] Provider JADE LEDBETTER Admitting Unavailable JADE LEDBETTER Attending Unavailable JADE LEDBETTER Referring Unavailable DIANA, MARIO ALBERTO Gonzalez [facility] DOCSUSHANT, NIKOLINA P Referring Unavailable SONG, [facility] Care Unavailable DOCSUSHANT, NIKOLINA P Referring Unavailable SONG [facility] Care Unavailable Uriel MEADE Attending Unavailable Uriel MEADE Admitting Unavailable Saundra Verdugo Attending Unavailable Saundra Verdugo Admitting Unavailable URIEL MEADE Referring Unavailable SONG [facility] Care Unavailable SONG YASMIN Referring Unavailable SONG [facility] Care Unavailable URIEL MEADE Referring Unavailable SONG, [facility] Care Unavailable DIANA, MARIO ALBERTO P Attending Unavailable URIEL MEADE Referring Unavailable HALINA, URIEL R Referring Unavailable MARIA T LAMBERT Attending Unavailable HALINA, URIEL R Referring Unavailable SONG, YASMIN Primary Care Unavailable KRUPA JONES Attending Unavailable HALINA, URIEL R Referring Unavailable SONG, YASMIN Primary Care Unavailable MARIO ALBERTO ORTIZ Attending Unavailable HALINA, URIEL R Referring Unavailable SONG, YASMIN Primary Care Unavailable DIAAN, MARIO ALBERTO Gonzalez Attending Unavailable HALINA, URIEL R Referring Unavailable SONG, YASMIN Primary Care Unavailable CAROLYNE COLLAZO Attending Unavailable HALINA, URIEL Attending Unavailable HALINA, URIEL Attending Unavailable HALINA, URIEL Attending Unavailable HALINA, URIEL Attending Unavailable HALINA, URIEL Attending Unavailable HALINA, URIEL Attending Unavailable DOLORES CALDWELL Attending Unavailable HALINA, URIEL Attending Unavailable DARY WILHELM Attending Unavailable CAROL MAGAÑA Attending Unavailable HALINA, Uriel R Referring Unavailable HALINA, Uriel R Admitting Unavailable HALINA, Uriel R Attending Unavailable HALINA, Uriel R Admitting Unavailable HALINA, Uriel R Attending Unavailable HALINA, Uriel R Admitting Unavailable HALINA, Uriel R Attending Unavailable HALINA, Uriel R Admitting Unavailable HALINA, Uriel R Attending Unavailable HALINA, Uriel R Admitting Unavailable HALINA, Uriel R Attending Unavailable Saundra Verdugo Admitting Unavailable Saundra Verdugo Attending Unavailable HALINA, Uriel R Admitting Unavailable HALINA, Uriel R Attending Unavailable HALINA, Uriel R Admitting Unavailable HALINA, Uriel R Attending Unavailable HALINA, Uriel R Admitting Unavailable HALINA, Uriel R Attending Unavailable HALINA, Uriel R Admitting Unavailable HALINA, Uriel R Attending Unavailable Saundra Verdugo Admitting Unavailable Saundra Verdugo Attending Unavailable DOLORES CALDWELL Admitting Unavailable DOLORES CALDWELL Attending Unavailable HALINA, Uriel R Attending Unavailable HALINA, Uriel R Admitting Unavailable HALINA, Uriel R Admitting Unavailable HALINA, Uriel R Attending Unavailable HALINA, Uriel R Admitting Unavailable HALINA, Uriel R Attending Unavailable HALINA, Uriel R Admitting Unavailable HALINA, Uriel R Attending Unavailable HALINA, Uriel R Admitting Unavailable HALINA, Uriel R Attending Unavailable HALINA, Uriel R Admitting Unavailable HALINA, Uriel R Attending Unavailable DOLORES CALDWELL Admitting Unavailable DOLORES CALDWELL Attending Unavailable HALINA, Uriel R Admitting Unavailable HALINA, Ruiel R Attending Unavailable Allergies Allergy ClassificationReported Allergen(s)Allergy TypeDate of OnsetReaction(s) Facility (20 sources)No Known Medication Allergies; Translations: [No Known Medication Allergies]Propensity to adverse reactions (disorder)[facility] Repository (20 sources)House dust miteAllergy to [id number] (20 sources)House Dust Mite; Translations: [HOUSE DUST MITE]Propensity to adverse reactions to [id number] Medications Current Medications MedicationDrug Class(es)DatesSig (Normalized)Sig (Original)acetaminophen 650 mg rectal suppository (2 sources)Start: 79-95-4181cwzmkosfcprcw (Tylenol) 650 mg suppository Indications: Nausea and vomiting, unspecified vomiting type , Chest pain, unspecified type Insert 1 suppository (650 mg) into the rectum every 6 hours. 60 suppository 08/16/2024 ActiveStart: 60-49-7387ayqf 650 mg rectal route every six hours as needed for edpb522 mg, rectal, Every 6 hours scheduled, First dose on Sun08/15/24 at 1800, If ordered PRN for pain, nurse is permitted to administer this medication for higher pain scores based on patient preference? YesAdvair HFA 115 mcg-21 mcg/inh inhalation aerosol with adapter (3 sources)Start: 75-84-9336owue 2 puff(s) by inhalation twice dailyAdvair HFA 115 mcg-21 mcg/inh inhalation aerosol with adapter 2 puff(s), Inhalation, BID Shortness of breath or wheezing, Refill(s) 6 Start Date: 09/13/23 Status: Ordered Start: 39-82-1719rdty 2 puff(s) by inhalation twice dailyAdvair HFA 115 mcg-21 mcg/inh inhalation aerosol with adapter 2 puff(s), Inhalation, BID, Refill(s)6 Start Date: 09/13/23 Status: OrderedALPRAZolam 0.5 mg oral tablet (20 sources)BenzodiazepineStart: 14-23-4180yjcl 1 tablet by mouth three times daily as needed for anxietyXanax 0.5 mg Tab 0.5 mg = 1 tab(s), Oral, TID, PRN for anxiety, Refills(s) 0 Start Date: 09/13/23 Status: OrderedStart: 09-09-2019 End: 79-87-4425ansr 0.5 mg by mouth twice dailyXanax 0.5 mg, Oral, BID, Refills(s) 0, Anxiety Start Date: 09/09/19 Status: Orderedazithromycin 250 mg oral tablet (3 sources)Macrolide AntimicrobialStart: 11-05-2024 End: 08-56-2847avlgnwuyyzjr (Zithromax Z-Lucho) 250 MG tablet Indications: Other acute sinusitis, recurrence not specified As directed 6 tablet 11/05/2024 11/18/2024 Discontinuedbenzocaine 15 mg / menthol 3.6 mg oral lozenge (1 source)Standardized Chemical AllergenStart: lozenge, Mouth/Throat, Every 2 hour PRN, sore throat, Starting on Sun08/15/24 at 1540 bisacodyl 10 mg rectal suppository (1 source)Stimulant LaxativeStart: 40-97-3621ohff 10 mg rectal route every twenty-four hours as neededblood-glucose sensor (FREESTYLE PABLITO 3 PLUS SENSOR) device (15 sources)Start: 18-79-3473wmmce-glucose sensor (FREESTYLE PABLITO 3 PLUS SENSOR) device Indications: 16 weeks gestation of , Hyperemesis of , Cyclical vomiting with nausea Wear for 15 d and change 2 each 4 ActiveBoost/Ensure (1 source)Start: 39-46-8433Jujxe/Ensure Boost/Ensure, 8oz BID x 2-4 weeks. Disp #24 (twenty-four), BIDAC, Print Requisition, Supply Start Date: 06/22/24 Status: Ordered Repeat number: 1 Indications: Mild hyperemesis gravidarum;60 actuat budesonide 0.08 mg/actuat / formoterol fumarate 0.0045 mg/actuat metered dose inhaler (20 sources)Corticosteroid, beta2-Adrenergic AgonistStart: 08-23-2023 End: 40-25-9886djby 2 puff(s) by mouth once dailybudesonide-formoterol (Breyna) 80-4.5 MCG/ACT inhaler Indications: Mild intermittent asthma withoutcomplication (HCC) Inhale 2 puffs Daily Rinse mouth with water after use to reduce aftertaste and incidence of candidiasis. Do not swallow. 10.2 g 2 08/23/2023 Activetake 2 puff(s) by inhalation in the morningbudesonide-formoteroL (SYMBICORT) 80-4.5 mcg/actuation inhaler Inhale 2 puffs in the morning and 2 puffs before bedtime. As needed. Activetake 2 puff(s) by inhalation in the morningbudesonide- formoteroL (SYMBICORT) 80-4.5 mcg/actuation inhaler Inhale 2 puffs in the morning and 2 puffs before bedtime. Activebudesonide-formoterol (Breyna) 80-4.5 MCG/ACT inhaler (20 sources)Start: 08-23-2023 End: 73-43-7863shuk 2 puff(s) by mouth once dailybudesonide-formoterol (Breyna) 80-4.5 MCG/ACT inhaler Indications: Mild intermittent asthma withoutcomplication (CMS/HCC) Inhale 2 puffs Daily Rinse mouth with water after use to reduce aftertaste and incidence of candidiasis. Do not swallow. 10.2 g 2 08/23/2023 08/22/2024 ActivebusPIRone hydrochloride 5 mg oral tablet (20 sources)Start: 07-30-2024 End: 65-17-5425dgmq 1 tablet by mouth in the morningbusPIRone (Buspar) 5 MG tablet Indications: Anxiety, generalized Take 1 tablet (5 mg) by mouth in the morning and 1 tablet (5 mg) before bedtime. 60 tablet 1 07/30/2024 08/26/2024 Discontinuedcalcium carbonate 500 mg chewable tablet (1 source)Start: 95-48-4810krvg 1 tablet by mouth every six hours as needed1 tablet, oral, Every 6 hours PRN, heartburn, Starting on Sun08/15/24 at 0305 calcium carbonate 120 mg/ml / magnesium hydroxide 27 mg/ml / simethicone 8 mg/ml oral suspension (1 source)Start: 60-33-3804gyye 10 mL by mouth every eight hourscalcium carb-mag hydrox-simeth (Mylanta Coat-Cool) 1,200 mg-270 mg -80 mg/10 mL suspension Indications: Nausea and vomiting, unspecified vomiting type , Chest pain, unspecified type Take 10 mL by mouth every 8 hours if needed (heartburn). 355 mL 08/15/2024 Activecalcium chloride 0.001 meq/ml / glucose 50 mg/ml / potassium chloride 0.004 meq/ml / sodium chloride 0.103 meq/ml / sodium lactate 0.028 meq/ml injectable solution (2 sources)Start: 08-14-2024 End: 36-39-8632knms 125 mL intravenously every frmc205 mL/hr, intravenous, Continuous, Starting on Sun08/15/24 at 0310, For 1 daycapsaicin 0.75 mg/ml topical cream (2 sources)Start: 87-50-9980lrjqq 1 dose topically three times dailyTopical, 3 times daily, First dose on Sun08/15/24 at 1600, Apply to: abdomen or chest cholecalciferol 0.025 mg oral tablet (20 sources)Vitamin DStart: 00-70-0962pqkb 1 tablet by mouth once daily cholecalciferol (Vitamin D-3) 25 MCG (1000 UT) tablet Indications: Female infertility , Fallopian tube disorder , Anovulation Take 1 tablet (25 mcg) by mouth Daily 60 tablet 3 02/21/2024 Activetake 1 tablet by mouth in the morning cholecalciferol 1,000 units tablet Take 1 tablet (1,000 Units total) by mouth in the morning. Activecyclophosphamide 50 mg oral capsule (3 sources)Alkylating DrugStart: 44-52-4725okuyxilstbvwgxwf 50 mg oral capsule Refills(s) 0, Other (see comment) Start Date: 09/13/23 Status: Ordered docosahexaenoic acid 120 mg / eicosapentaenoic acid 180 mg oral capsule (20 sources)Start: 01-22-2024 End: 61-97-6682iagq 1 capsule by mouth once dailyfish oil concentrate ([place]-3) 1000 MG capsule Indications: Female infertility , Fallopian tube disorder , Anovulation Take 1 capsule (1 g) by mouth Daily 30 capsule 11 02/21/2024 02/20/2025 Activedoxylamine succinate 25 mg oral tablet (16 sources)Start: 23-55-2477lbzz 1 tablet by mouth once daily as needed for sleepdoxylamine (UNISOM) 25 mg tablet Indications: 16 weeks gestation of , Hyperemesis of Take 1 tablet (25 mg total) by mouth nightly as needed for sleep. 90 tablet 1 09/02/2024 Activeestradiol 2 mg oral tablet (2 sources)EstrogenStart: 08-38-8915qzkf 1 tablet by mouth once dailyestradiol (ESTRACE) 2 mg tablet Take 1 tablet by mouth once daily. x 1 week for breakthrough bleeding 7 tablet 2 01/21/2021 ActiveEthinyl Estradiol / Norethindrone (2 sources)EstrogenStart: 12-40-9274umec 1 tablet by mouth once daily, then take 0.05 tablet by mouth onceNorethindrone Acet-Ethinyl Est (LOESTRIN ,) 1- 20 mg-mcg per tablet Take 1 tablet by mouth once daily. in continuous fashion 90 tablet 3 03/21/2021 Active2 ml famotidine 10 mg/ml injection (4 sources)Histamine-2 Receptor AntagonistStart: 31-53-595491 mg, intravenous, Administer over 2 Minutes, Every 12 hours scheduled, First dose on Sun08/15/24 a t 2100Start: 08-14-2024 End: 92-35-064631 mg, intravenous, Administer over 2 Minutes, Once, On Sun08/14/24 at 2305, For 1 doseStart: 38-38-1951uata 1 tablet by mouth twice daily famotidine 20 mg Tab 20 mg = 1 tab(s), Oral, BID, # 60 tab(s), Refills(s) 0, Pharmacy: [facility][id number], 167, cm, 06/19/24 10:50:00 EDT, Height/Length Dosing, 48.9, kg, 06/19/24 10:50:00 EDT, Weight Dosing Start Date: 06/21/24 Status: Ordered Quantity: 60.0 Unit: tab(s) Repeat number: 1Start: 07-20-2023 End: 58-37-491844 mg, intravenous, Once, On Sun07/20/23 at 1910, For 1 doseFish Oils (1 source)Start: 94-86-8010froa 500 mg by mouth once dailyFish Oil 500 mg, Oral, Daily, Refill(s) 0 Start Date: 06/19/24 Status: Ordered Repeat number: 11 ml hydrALAZINE hydrochloride 20 mg/ml injection (1 source)Arteriolar VasodilatorStart: 18-54-1021ahcaGZTepcv hydrochloride 25 mg oral tablet (2 sources)AntihistamineStart: 08-30-7737pxlk 25 mg by mouth once25 mg, oral, Once, On Sun08/15/24 at 2030, For 1 doseStart: 00-98-2267jaqg 1 tablet by mouth every eight hours for anxietyhydrOXYzine HCL (Atarax) 25 mg tablet Indications: Nausea and vomiting, unspecified vomiting type ,Chest pain, unspecified type Take 1 tablet (25 mg) by mouth every 8 hours if needed for itching or anxiety. 20 tablet 08/15/2024 Activelabetalol hydrochloride 5 mg/ml injectable solution (2 sources)beta-Adrenergic BlockerStart: 67-57-4083Ybkcd: 08-14-2024 End: mg, intravenous, Once, On Sun08/14/24 at 2305, For 1 dose, Give at rate of 10 mg/min.Lidocaine (2 sources)Antiarrhythmic, Amide Local AnestheticStart: 33-46-0885Lpkte: 08-13-2024 End: 31-85-4863zhjg 15 mL by mouth once15 mL, oral, Once, On Sun08/13/24 at 0945, For 1 xonksuupcuqay-swimhumyelZEFHU-Ccgnot 1:1:1 Magic Mouthwash (1 source)Start: 63-67-481864 mL, Swish & Swallow, Every 6 hours PRN, stomatitis, mucositis, other, GERD, Starting on Sun08/15/24 at 1306magnesium hydroxide 80 mg/ml oral suspension (1 source)Start: 54-21-9241dycpenmzp hydrochloride 25 mg chewable tablet (16 sources)AntiemeticStart: 36-43-4868xaqwazzbp (ANTIVERT) 25 mg tablet Indications: 16 weeks gestation of , Hyperemesis of Chew 1 tablet (25 mg total) and swallow 3 (three) times a day as needed for dizziness or nausea. 30 tablet 09/02/2024 Active2 ml metoclopramide 5 mg/ml injection (10 sources)Dopamine-2 Receptor AntagonistStart: 59-38-862501 mg, intravenous, Every 6 hours scheduled, First dose on Sun08/15/24 at 0600Start: 08-14-2024 End: 35-75-840863 mg, intravenous, Once, On Moriah 08/14/24 at 2355, For 1 dose Start: 90-63-5547aemw 1 tablet by mouth four times dailyReglan 5 mg Tab 5 mg = 1 tab(s), Oral, QID, # 120 tab(s), Refills(s) 0, Pharmacy: [facility] #[id number], 167, cm, 06/19/24 10:50:00 EDT, Height/Length Dosing, 48.9, kg, 06/19/24 10:50:00 EDT, Weight Dosing Start Date: 06/21/24 Status: Ordered Quantity: 120.0 Unit: tab(s) Repeat number: 1 End: 63-54-4446shkctbntentzgo (Reglan) 10 MG tablet Take 10 mg by mouth 07/30/2024 DiscontinuedMiraLax 3350 Oral Pwdr for Recon 249 gram (6 sources)Start: 60-37-1066LqaiIad 3350 Oral Pwdr for Recon 249 gram 17 gram, Oral, Daily, # 527 gram, Refills(s) 0, Pharmacy:[facility] #[id number], 168, cm, 09/15/19 7:03:00 EDT, Height/Length Measured, 52, kg, 09/15/19 7:03:00 EDT, Weight Measured Start Date: 09/16/19 Status: Ordered Quantity: 527.0 Unit: g Repeat number: 1Start: 20-37-2045NrjzIys 3350 Oral Pwdr for Recon 249 gram 17 gram, Oral, Daily, # 527 gram, Refills(s) 0, Pharmacy:[facility] #[id number], 168, cm, 09/15/19 7:03:00 EDT, Height/Length Measured, 52, kg, 09/15/19 7:03:00 EDT, Weight Measured Start Date: 09/16/19 Status: Orderednaloxone hydrochloride 40 mg/ml nasal spray (1 source)Opioid AntagonistStart: 73-08-5849djrnqecc 4 mg/0.1 mL nasal spray 4 mg, Nasal, As Directed, for suspected overdose symptoms, # 1 kit(s), Refills(s) 0, Pharmacy: [id number], 167, cm, 06/19/24 10:50:00 EDT, Height/Length Dosing, 48.9, kg, 06/19/24 10:50:00 EDT, Weight Dosing Start Date: 06/22/24 Status: Ordered Quantity: 1.0 Unit: kit(s) Repeat number: 1NIFEdipine 10 mg oral capsule (1 source)Dihydropyridine Calcium Channel BlockerStart: 41-89-6204QRTFPciqtv 5 mg disintegrating oral tablet (20 sources)Atypical AntipsychoticStart: 54-71-7213agzd 2.5 mg by mouth twice daily2.5 mg, oral, 2 times daily, First dose on Sun08/15/24 at 2100Start: 80-22-7230buve 1 tablet by mouth every six hoursolanzapine 2.5 mg Tab 2.5 mg = 1 tab(s), Oral, q6hr, Refills(s) 0 Start Date: 08/14/24 Status: Ordered Repeat number: 1Start: 08-17-6286scpb 2.5 mg by mouth twice daily2.5 mg, oral, 2 times daily, First dose on Sun08/15/24 at 0900, On hold since Sun08/15/2024 at 1557 until manually unheldtake 1 tablet by mouth every eight hours as needed OLANZapine (ZyPREXA) 2.5 mg tablet Take 1 tablet (2.5 mg total) by mouth every 8 (eight) hours as needed. Activeomega-3 acid ethyl esters (halfway) 1000 mg oral capsule (17 sources)take 1 capsule by mouth at bedtimeomega-3 acid ethyl esters (LOVAZA) 1 gram capsule Take 2 capsules (2 g total) by mouth in the morning and 2 capsules (2 g total) before bedtime. Activeondansetron 8 mg disintegrating oral tablet (20 sources)Serotonin-3 Receptor AntagonistStart: 29-26-1606jgyn 1 tablet by mouth every eight hours for nauseaondansetron ODT (Zofran-ODT) 8 mg disintegrating tablet Indications: Nausea and vomiting, unspecified vomiting type , Chest pain, unspecified type Dissolve 1 tablet (8 mg) in the mouth every 8 hours if needed for nausea or vomiting. 20 tablet 08/15/2024 ActiveStart: 08-14-2024 End: mg, intravenous, Once, On Sun08/15/24 at 1010, For 1 dose, When administering via IV Push, administer over 3-5 minutes.Start: 34-40-9304klni 1 tablet by mouth every eight hours as needed for nausea and vomitingondansetron (Zofran) 8 MG tablet Take 8 mg by mouth every 8 (eight) hours if needed for nausea or vomiting 08/14/2024 ActiveStart: 08-13-2024 End: mg, intravenous, Once, On Sun08/13/24 at 0930, For 1 dose, When administering via IV Push, administer over 3-5 minutes.Start: 08-04-2024 End: 85-57-6737kxzw 1 tablet by mouth four times daily as neededondansetron ODT (Zofran-ODT) 8 mg disintegrating tablet Dissolve 1 tablet (8 mg) in the mouth 4 times a day as needed. 08/04/2024 08/15/2024 DiscontinuedStart: 06-19-2024 End: 52-71-5345jmtm 1 tablet by mouth every six hours for nauseaondansetron ODT (Zofran-ODT) 4 MG disintegrating tablet Indications: Nausea and vomiting, unspecified vomiting type Take 1 tablet (4 mg) by mouth every 6 (six) hours if needed for nausea or vomiting 30 tablet 2 06/19/2024 07/19/2024 ActiveStart: 07-20-2023 End: 73-93-4893cdjr 1 tablet by mouth every eight hours for nauseaondansetron ODT (Zofran-ODT) 4 mg disintegrating tablet Indications: Nausea and vomiting, unspecified vomiting type Take 1 tablet (4 mg) by mouth every 8 hours if needed for nausea or vomiting for upto 7 days. 20 tablet 07/20/2023 07/27/2023 Active End: 87-65-4226mxsb 1 tablet by mouth every eight hours as needed for nausea and vomitingondansetron (ZOFRAN) 4 mg tablet Take 1 tablet (4 mg total) by mouth every 8 (eight) hours as needed for nausea or vomiting. 09/02/2024 Discontinued (Alternate therapy)oxyCODONE hydrochloride 5 mg oral capsule (1 source)Opioid AgonistStart: 92-17-4058waeu 1 capsule by mouth every twelve hours as needed for painoxyCODONE 5 mg Cap 5 mg = 1 cap(s), Oral, q12hr, PRN for pain, # 6 cap(s), Refills(s) 0, Pharmacy: [facility], 167, cm, 06/19/24 10:50:00 EDT, Height/Length Dosing, 48.9, kg, 06/19/24 10:50:00 EDT, Weight Dosing Start Date: 06/22/24 Status: Ordered Quantity: 6.0 Unit: cap(s) Repeat number: 1 Indications: Mild hyperemesis gravidarum; Vomiting, unspecified;pantoprazole 20 mg delayed release oral tablet (20 sources)Proton Pump InhibitorStart: 09-02-2024 End: 39-49-6706sowz 1 tablet by mouth in the morningpantoprazole (PROTONIX) 20 mg EC tablet Indications: 16 weeks gestation of , Hyperemesis of TAKE 1 TABLET(20 MG) BY MOUTH IN THE MORNING 90 tablet 12/07/2024 ActiveStart: 55-56-398289 mg, intravenous, Daily, First dose on Sun08/15/24 at 0900, Reconstitute each 40 mg vial with 10 mL NS to make 4 mg/mL solution.Start: 25-69-7511Btxbldrlmxmo [address] Tab 30 EA, 0 Refill(s), Refills(s) 0 Start Date: 09/13/23 Status: OrderedStart: 08-23-2023 End: 16-22-0484aivj 1 tablet by mouth once daily before mealtimepantoprazole (ProtoNix) 40 mg EC tablet Indications: Nausea and vomiting, unspecified vomiting typeTake 1 tablet (40 mg) by mouth once daily in the morning. Take before meals. Do not crush, chew, orsplit. 30 tablet 08/13/2024 08/13/2025 ActiveStart: 07-20-2023 End: 48-25-5883tzmz 1 tablet by mouth once dailypantoprazole (ProtoNix) 20 mg EC tablet Indications: Gastritis, presence of bleeding unspecified, unspecified chronicity, unspecified gastritis type Take 1 tablet (20 mg) by mouth once daily for 20 days. Do not crush, chew, or split. 20 tablet 07/20/2023 08/09/2023 Activeperflutren lipid microspheres (Definity) injection 0.5-10 mL of dilution (1 source)Start: .5-10 mL of dilution, intravenous, Once in imaging, Starting on Sun08/15/24 at 1203, For 1 dose, CV Medications, Contrast - for use by imaging provider only. Prior to administration, Definity product must be activated. First, bring vial to room temperature. Then, shake vial for 45 seconds. Do not use if the 45 second activation cycle has not been completed. Following activation, the product willappear as a milky white suspension and may be used immediately. If not used within 5 minutes of activation, re-suspend by inverting and shaking the vial for 10 seconds. Discard unused product. Adminis tration: Dilute 1.3 mL of activated DEFINITY with [...] flush line with 10 mL of Normal Saline.perflutren protein A microsphere (Optison) injection 0.5 mL (1 source)Start: 50.5 mL, intravenous, Once in imaging, Starting on Sun08/15/24 at 1110, For 1 dose, CV Medicationspolyethylene glycol 3350 00817 mg powder for oral solution (20 sources)Osmotic LaxativeStart: 37-52-5481Fdxuhhpf 19 ([place]) (1 source)Start: 92-91-4496Gmufkgmf 19 ([place]) See Instructions, Refill(s) 0, Oral Start Date: 06/19/24 Status: Ordered Repeat number: 1prenatal no115/iron/folic acid ( 19 ORAL) (3 sources)Start: 02-21-2024 End: 59-10-5754estg 1 tablet by mouth once dailyprenatal no115/iron/folic acid ( 19 ORAL) Take 1 tablet by mouth once daily. 02/21/2024 02/20/2025 ActivePRENATAL VIT 13-HAJA-ZRLNG-DHA ORAL (17 sources) VIT 20-PIXV-ETGTS-DHA ORAL Take by mouth. ActivePrenatal Vit-Fe Fumarate-FA ( Vitamins) 28-0.8 MG tablet (20 sources)Start: 02-21-2024 End: 63-62-2430wfjv 1 tablet by mouth once dailyPrenatal Vit-Fe Fumarate-FA ( Vitamins) 28-0.8 MG tablet Indications: Female infertility , Fallopian tube disorder , Anovulation Take 1 tablet by mouth Daily 30 tablet 11 02/21/2024 02/20/2025 ActiveStart: 01-22-2024 End: 58-43-3624mwoq 1 tablet by mouth once dailyPrenatal Vit-Fe Fumarate-FA ( Vitamins) 28-0.8 MG tablet Indications: Female infertility , Fallopian tube disorder , Anovulation Take 1 tablet by mouth Daily 30 tablet 11 01/22/2024 01/21/2025 Activeprenatal vitamin (iron-folic) tablet 1 tablet (1 source)Start: 28-86-1645Pnqfaarwupovjnye (1 source)PhenothiazineStart: 83-77-2709wblb 1 tablet by mouth every six hours as neededprochlorperazine (Compazine) tablet 10 mgProtonix 40 mg Tab-EC (5 sources)Start: 40-17-0939hiym 1 tablet by mouth once daily 30 minutes before breakfastProtonix 40 mg Tab-EC 40 mg = 1 tab(s), Oral, Daily, Take 30 minutes before breakfast, # 30 tab(s),Refills(s) 1, Pharmacy: [id number], 168, cm, 09/09/19 8:18:00 EDT, Height/Length Measured, 52, kg, 09/09/19 8:18:00 EDT, Weight Measured Start Date: 09/09/19 Status: Orderedpyridoxine hydrochloride 25 mg oral tablet (16 sources)Start: 39-88-0450bbxa 1 tablet by mouth three times dailypyridoxine, vitamin B6, (B-6) 25 mg tablet Indications: 16 weeks gestation of , Hyperemesis of Take 1 tablet (25 mg total) by mouth 3 (three) times a day. 90 tablet 1 09/02/2024 ActiveQUEtiapine 50 mg oral tablet (20 sources)Atypical AntipsychoticStart: 34-32-3550cwwz 50 mg by mouth twice daily50 mg, oral, 2 times daily, First dose on Sun08/15/24 at 645895 hr scopolamine 0.0139 mg/hr transdermal system (1 source)AnticholinergicStart: patch, transdermal, Administer over 72 Hours, Every 72 hours, First dose on Sun08/15/24 at 0310, Wash hands before and after application to avoid drug contact with eyes. Apply to hairless area of skin behind the ear. Once patch has been affixed behind ear, do not touch while being worn.sennosides, halfway 1.76 mg/ml oral solution (1 source)Start: 27-75-8858ygdi 5 mL by mouth twice daily5 mL, oral, 2 times daily, First dose on Sun08/15/24 at 0900simethicone 80 mg chewable tablet (17 sources)Start: 26-14-4261acwftexspku (MYLICON) 80 mg chewable tablet Indications: 16 weeks gestation of , Hyperemesis of Chew 1 tablet (80 mg total) and swallow every 6 (six) hours as needed for flatulence. 30 tablet 1 09/02/2024 ActiveStart: 17-63-6673legeqktaok 100 mg/ml oral suspension (20 sources)Aluminum ComplexStart: 07-02-2024 End: 86-14-8223bttx 1 g by mouth at bedtimesucralfate (Carafate) 1 GM/10ML suspension Indications: Subchorionic hematoma in first trimester, single or unspecified fetus , Nausea and vomiting, unspecified vomiting type , Hyperemesis of Take 10 mL (1 g) by mouth in the morning and 10 mL (1 g) at noon and 10 mL (1 g) in the evening and 10 mL (1 g) before bedtime. 1200 mL 3 07/02/2024 08/01/2024 ActiveStart: 96-95-0924Bhiggpko 1 g/10 mL Susp-Oral 1 gm = 10 mL, Oral, QIDACHS, # 400 mL, Refills(s) 0, Pharmacy: [facility] #[id number], 167, cm, 06/19/24 10:50:00 EDT, Height/Length Dosing, 48.9, kg, 06/19/24 10:50:00 EDT, Weight Dosing Start Date: 06/21/24 Status: Ordered Quantity: 400.0 Unit: mL Repeat number: 1sucralfate (CARAFATE) 100 mg/mL suspension Take 10 mL (1,000 mg total) by mouth in the morning and 10 mL (1,000 mg total) at noon and 10 mL (1,000 mg total) in the evening and 10 mL (1,000 mg total) before bedtime. Activesulfur hexafluoride microsphr (Lumason) injection 24.28 mg (1 source)Start: .28 mg (2 mL), intravenous, Once in imaging, Starting on Sun08/15/24 at 1203, For 1 dose, CV Medications, Follow administration with 5 mL NaCL 0.9% injection.thiamine 50 mg oral tablet (17 sources)Start: 62-54-5754ylwd 2 tablets by mouth in the morningthiamine HCl (VITAMIN B-1) 50 mg tablet Indications: 16 weeks gestation of , Hyperemesis of Take 2 tablets (100 mg total) by mouth in the morning. 90 tablet 1 09/02/2024 ActiveStart: 74-82-8999314 mg, intravenous, Daily, First dose on Sun08/15/24 at 1105, For IV push use, administer over 1-2minutes.witch mark 500 mg/ml medicated pad (4 sources)Start: 85-84-8161oxlkc mark-glycerin (Tucks) pad Indications: Hemorrhoids, unspecified hemorrhoid type Apply topically if needed for irritation 50 each 2 12/16/2024 ActiveZofran ODT 4 mg Tab-Dis (1 source)Start: 53-90-4041ccdd 1 tablet by mouth every six hoursZofran ODT 4 mg Tab-Dis 4 mg = 1 tab(s), Oral, q6hr, # 60 tab(s), Refills(s) 0, Pharmacy: [facility] #[id number], 167, cm, 06/19/24 10:50:00 EDT, Height/Length Dosing, 48.9, kg, 06/19/24 10:50:00 EDT, Weight Dosing Start Date: 06/21/24 Status: Ordered Quantity: 60.0 Unit: tab(s) Repeat number: 1 Completed/Discontinued Medications MedicationDrug Class(es)DatesSig (Normalized)Sig (Original)aluminum hydroxide 40 mg/ml / magnesium hydroxide 40 mg/ml / simethicone 4 mg/ml oral suspension (1 source)Start: 08-13-2024 End: 58-91-2974zxod 30 mL by mouth once30 mL, oral, Once, On Sun08/13/24 at 0945, For 1 doseARIPiprazole 5 mg oral tablet (20 sources)Atypical AntipsychoticStart: 04-14-2024 End: 41-33-6829dmoy 1 tablet by mouth once dailyARIPiprazole (Abilify) 5 MG tablet Indications: Bipolar affective disorder, currently manic, moderate (CMS/HCC) Take 1 tablet (5 mg) by mouth Daily 30 tablet 04/14/2024 07/30/2024 Discontinuedcalcium chloride 0.0014 meq/ml / potassium chloride 0.004 meq/ml / sodium chloride 0.103 meq/ml / sodium lactate 0.028 meq/ml injectable solution (1 source)Start: 07-20-2023 End: ,000 mL, intravenous, at 999 mL/hr, Administer over 1 Hours, Once, On Sun07/20/23 at 1455, For 1 dosediphenhydrAMINE (4 sources)Histamine-1 Receptor AntagonistStart: 08-15-2024 End: .5 mg, intravenous, Once, On Sun08/15/24 at 1020, For 1 dose, If giving IV push, max rate of 25 mg/min.Start: 91-05-7027xbqc 25 mg intravenously every six hours25 mg, intravenous, Every 6 hours, First dose on Sun08/15/24 at 0310, If giving IV push, max rate of 25 mg/min.Start: 08-15-2024 End: 22-95-976999 mg, intravenous, Once, On Sun08/15/24 at 0000, For 1 dose, If giving IV push, max rate of 25 mg/min.Start: 07-20-2023 End: 19-10-629900 mg, intravenous, Once, On Sun07/20/23 at 1455, For 1 dose, If giving IV push, max rate of 25 mg/min.Haloperidol (3 sources)Typical AntipsychoticStart: 08-15-2024 End: mg, intramuscular, Once, On Sun08/15/24 at 1615, For 1 dose, Patients receiving IV haloperidol should be on continuous cardiac monitoring. Start: 08-15-2024 End: 32-68-8290Oyvrrzbz on Sun08/15/24 at 1600, For 1 dose, Created by spenser overrideStart: 07-20-2023 End: mg, intramuscular, Once, On Sun07/20/23 at 1455, For 1 dose, Patients receiving IV haloperidol should be on continuous cardiac monitoring.1 ml HYDROmorphone hydrochloride 0.2 mg/ml prefilled syringe (4 sources)Opioid AgonistStart: 08-15-2024 End: 50.2 mg, intravenous, Once, On Sun08/15/24 at 1330, For 1 dose Start: 08-15-2024 End: 50.2 mg, intravenous, Every 3 hours PRN, pain severe (7-10), first line, Starting on Sun08/15/24 at 0305Start: 08-15-2024 End: 50.5 mg, intravenous, Once, On Sun08/15/24 at 0030, For 1 dose Start: 08-13-2024 End: 50.2 mg, intravenous, Once, On Sun08/13/24 at 1050, For 1 dose iohexol (OMNIPaque) 350 mg iodine/mL solution 75 mL (1 source)Start: 07-20-2023 End: mL, intravenous, Once in imaging, Starting on Sun07/20/23 at 1739, For 1 doseiv contrast (will be provided with radiology test) (1 source)Start: 07-11-2023 End: 43-07-6489yr contrast (will be provided with radiology test) Indications: 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HCC) MRI Pituitary Inject, intravenously, once for 1 dose. No IV access, insert saline lock prior to the beginning of sedation, infusion, injection of imaging exam. Discontinue saline lock post exam. If Pt. has a ami tral line or IVAD, may access for administration according to line specific nursing protocol. Once exam is complete flush line and de-access according to line specific nursing protocol in the MR contrast administration guidelines link. 1 Each 0 07/11/2023 07/12/2023 Expired1 ml ketorolac tromethamine 30 mg/ml injection (2 sources)Nonsteroidal Anti-inflammatory Drug, Cyclooxygenase InhibitorStart: 08-15-2024 End: mg, intravenous, Once, On Sun08/15/24 at 0900, For 1 dose Start: 07-20-2023 End: 27-20-398150 mg, intravenous, Once, On Sun07/20/23 at 1650, For 1 dose lamoTRIgine 25 mg oral tablet (7 sources)Mood Stabilizer, Anti-epileptic AgentStart: 78-85-4634yijq 1 tablet by mouth twice dailylamotrigine 25 mg Tab 42 EA, 0 Refill(s), TAKE 1 TABLET BY MOUTH DAILY FOR 14 DAYS THEN TAKE 1 TABLET BY MOUTH TWICE DAILY, Refills(s) 0 Start Date: 09/13/23 Status: OrderedStart: 07-26-2023 End: 70-83-5065kfguNTVpefq (LaMICtal) 25 MG tablet Indications: Bipolar 1 disorder (CMS/HCC) 25 mg daily x 14 days, then 25 mg twice daily 42 tablet 1 07/26/2023 12/03/2023 Ubgnygfrumqm59 ml magnesium sulfate 40 mg/ml injection (1 source)Start: 08-15-2024 End: g, intravenous, at 25 mL/hr, Administer over 2 Hours, Once, On Sun08/15/24 at 0310, For 1 dosemethylphenidate hydrochloride 20 mg oral tablet (12 sources)Central Nervous System StimulantStart: 08-23-2023 End: 74-68-8782ruzw 1 tablet by mouth once daily at bedtimeRitalin 20 mg oral tablet 40 EA, 0 Refill(s), TAKE 1 TABLET BY MOUTH EVERY MORNING AND 1 TABLET EVERY NIGHT AT BEDTIME, Refills(s) 0 Start Date: 09/13/23 Status: OrderedStart: 42-85-2890glly 1 tablet by mouth twice dailyRitalin 20 mg oral tablet 20 mg = 1 tab(s), Oral, BID, Refills(s) 0, Other (see comment) Start Date: 09/09/19 Status: OrderedmetroNIDAZOLE 500 mg oral tablet (2 sources)Nitroimidazole AntimicrobialStart: 01-16-2024 End: 40-15-7344ljnd 1 tablet by mouth in the morningmetroNIDAZOLE (Flagyl) 500 MG tablet Indications: Vaginal odor Take 1 tablet (500 mg) by mouth in the morning and 1 tablet (500 mg) before bedtime. Do all this for 7 days. 14 tablet 01/16/2024 01/23/2024 Expired1 ml morphine sulfate 4 mg/ml injection (2 sources)Opioid AgonistStart: 07-20-2023 End: mg, intravenous, Once, On Sun07/20/23 at 1815, For 1 aius884 ml potassium chloride 0.2 meq/ml injection (1 source)Start: 08-15-2024 End: 99-35-6607xlzj 20 mEq intravenously every two hours20 mEq, intravenous, at 50 mL/hr, Administer over 2 Hours, Every 2 hours, First dose on Sun08/15/24at 0310, For 2 doses, Total dose is 40 mEq via peripheral line.promethazine (Phenergan) 12.5 mg in sodium chloride 0.9% 50 mL IV (2 sources)Start: 08-15-2024 End: 61-19-037371.5 mg, intravenous, Administer over 15 Minutes, Once, On Sun08/15/24 at 1015, For 1 doseStart: 08-13-2024 End: 01-11-809731.5 mg, intravenous, Administer over 15 Minutes, Once, On Sun08/13/24 at 1050, For 1 pttn3289 ml sodium chloride 9 mg/ml injection (1 source)Start: 08-13-2024 End: ,000 mL, intravenous, at 999 mL/hr, Administer over 1 Hours, Once, On Sun08/13/24 at 0930, For 1 doseubidecarenone 100 mg / vitamin e 5 unt oral capsule (3 sources)Start: 02-21-2024 End: 58-43-6156itpc 1 capsule by mouth once dailycoenzyme Q-10 100 MG capsule Indications: Female infertility , Fallopian tube disorder , Anovulation Take 1 capsule (100 mg) by mouth Daily 30 capsule 3 02/21/2024 03/22/2024 Problems Active Problems Problem ClassificationProblemDateDocumented DateEpisodic/ChronicAbdominal pain (20 sources)Pain in pelvis; Translations: [Visceral abdominal pain]Onset: 502266-06-8463EyksupaoDxzuyaiha pain (1 source)Pelvic and perineal pain; Translations: [PELVIC AND PERINEAL PAIN] Onset: 86-38-8282Nvbsaeg disorders (20 sources)Anxiety disorder, unspecified; Translations: [Anxiety]Onset: 761943-77-3808HezfqawPoymrh (20 sources)Unspecified asthma, uncomplicated; Translations: [Asthma]Onset: 712631-56-3116YdbtrdoIhwpvgtjy-lbdkhjz, conduct, and disruptive behavior disorders (11 sources)Attention deficit hyperactivity lhotwbks06-24-3091WrimuwmWukdqpcvb- deficit, conduct, and disruptive behavior disorders (20 sources)Attention deficit hyperactivity disorder, combined type; Translations: [Attention-deficit hyperactivity disorder, combined type]Onset: 568191-84-0715MjajxvnZsekew of cervix (11 sources)Malignant tumor of jurhjk68-65-5671CatwdgkXgexkhefjfpph and procreative management (8 sources)Encounter for assisted reproductive fertility procedure cycle; Translations: [Patient encounter status]Onset: 916252-22-0636Xhorqtkt Deficiency and other anemia (13 sources)Anemia; Translations: [Anemia, unspecified]11-81-5658Juwwsxnt Endometriosis (12 sources)Endometriosis of pelvic peritoneum; Translations: [Endometriosis (clinical)]Onset: 599863-79-5071EosapdbNjgkmxyvdo disorders (4 sources)Gastroesophageal reflux disease; Translations: [Gastro-esophageal reflux disease without esophagitis]Onset: 995481-97-6841KnlrgdcQczjrjqnfb disorders (13 sources)Esophagitis; Translations: [Esophagitis, unspecified without bleeding]Onset: 50-49-8689NcrwpbsuOgnyeo infertility (20 sources)Female infertility; Translations: [Female infertility, unspecified] Onset: 927563-93-7819RxwyrdjVtoyb and electrolyte disorders (1 source)Hypokalemia; Translations: [Hypokalemia]Onset: 07-07-7365Wqzwjvvx Headache; including migraine (1 source)Cyclical vomiting -14-4515KthpidaCibcllewdz during ; abruptio placenta; placenta previa (2 sources)Antepartum hemorrhage; Translations: [Hemorrhage in early , unspecified]10-16-1437XfmurtbcSonzrqsifqv (2 sources)Hemorrhoids; Translations: [Unspecified hemorrhoids]12-16-2024 EpisodicImmunizations and screening for infectious disease (2 sources)Exposure to sexually transmissible disorder; Translations: [Contact with and (suspected) exposure to infections with a predominantly sexual mode of transmission]34-11-3838JlqrdkvuQtlinpllvckk diseases of female pelvic organs (1 source)Chronic salpingitis; Translations: [CHRONIC SALPINGITIS]Onset: 48-07-6835BsulrvkChyjeeo and fatigue (11 sources)Qwkfkvd09-18-2790PwkoudiyPaocuvcrcdb; malpresentation (2 sources)Breech presentation; Translations: [Maternal care for breech presentation, not applicable or unspecified]42-70-8237WllgtlfnPdoonmujz disorders (16 sources)Excessive and frequent menstruation with regular cycle; Translations: [Amenorrhea]Onset: 206064-43-3699FzlfaejPifvmhwshsdxs mental health disorders (12 sources)Psychosomatic factor in physical condition; Translations: [Psychological and behavioral factors associated with disorders or diseases classified elsewhere]Onset: 57-31-0232JwskhsaQgde disorders (20 sources)Bipolar disorder, unspecified; Translations: [Bipolar disorder] Onset: 16-52-9743MahdmafRpcbsd and vomiting (20 sources)Nausea and vomiting; Translations: [Nausea with vomiting, unspecified]Onset: 627230-69-9928QixtjktrJsynnbkapgd chest pain (4 sources)Chest pain; Translations: [Chest pain, unspecified]Onset: 08-14-2024 07-22-5178ZrqbehfdWuwqg acquired deformities (13 sources)Acquired ypnxvbjyh10-11-3667NflakegPstgy aftercare (1 source)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; Translations: [OTH VP STRATEGIC PLANNING CURRENT DRUG THERAPY]Onset: 30-14-2119UlxrgazcRlalo aftercare (1 source)Long-term current use of drug therapy; Translations: [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]Onset: 80-15-9966LqfsknqiLzdjf aftercare (2 sources)Post-discharge follow-up; Translations: [Encounter for follow-up examination after completed treatment for conditions other than malignant neoplasm]75-88-2646GhvapgiqKqwmw and unspecified benign neoplasm (12 sources)Prolactinoma; Translations: [Benign neoplasm of pituitary gland] 06-39-7238FpdcnxbjUjtzt and unspecified benign neoplasm (1 source)Benign neoplasm of pituitary gland; 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)] Onset: 39-80-3278BjjswxweEowmo complications of (1 source)Mild hyperemesis gravidarum; Translations: [Mild hyperemesis gravidarum]Onset: 35-78-7489BxksowilWaiql complications of (6 sources)Low maternal weight gain; Translations: [Low weight gain in , second trimester]59-89-0824AzqbekwzKkurv complications of (1 source)Bipolar disorder; Translations: [Other mental disorders complicating , second trimester]36-19-8375LuddnvflHznhk complications of (1 source)Other mental disorders complicating , unspecified trimester; Translations: [Mental disorders of mother, antepartum condition or complication] 60-64-6130HryijvtjSvefo complications of (3 sources)Vomiting of , unspecified; Translations: [Unspecified vomiting of , unspecified as to episode of care or not applicable] Onset: 883425-12-9749VqpawqikFwjie disorders of stomach and duodenum (1 source)Cyclical vomiting syndrome; Translations: [Cyclical vomiting syndrome unrelated to migraine]66-42-3392KfktpqbcVcenb endocrine disorders (12 sources)Disorder of pituitary gland; Translations: [Disorder of pituitary gland, unspecified]08-88-9529KmewukpVmhra endocrine disorders (1 source)Disorder of pituitary gland, unspecified; Translations: [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HCC)]Onset: 76-24-3293TvuuhfjPaozb female genital disorders (11 sources)Abnormal uterine eshzrayu51-63-8538GkwxkfxPcxqr female genital disorders (2 sources)Vaginal odor; Translations: [Other specified noninflammatory disorders of vagina]87-52-0476GhmxthrgXfkio gastrointestinal disorders (12 sources)Heartburn; Translations: [Heartburn]Onset: 46-09-1851RsumnrlvDyjxp gastrointestinal disorders (1 source)Functional disorder of intestine; Translations: [Other specified functional intestinal disorders]Onset: 60-97-9503OihzttwjMstab non-traumatic joint disorders (1 source)Other specified arthritis, left hip; Translations: [OTHER SPECIFIED ARTHRITIS LEFT HIP]Onset: 43-54-4014XniviyuOovsg non-traumatic joint disorders (1 source)Other specified arthritis, right hip; Translations: [OTHER SPECIFIED ARTHRITIS RIGHT HIP]Onset: 48-14-8737BmfibzqCvtdn non-traumatic joint disorders (11 sources)Bilateral arthritis of sacroiliac auwjx41-33-3059CtpgwkkJrlwn nutritional; endocrine; and metabolic disorders (1 source)Abnormal weight loss; Translations: [Abnormal weight loss]Onset: 11-48-7389DhljafvwWjwcz and delivery including normal (17 sources)Normal ; Translations: [Encounter for supervision of normal , unspecified, first trimester]Onset: 49-25-4774GjsaswbfWeefd upper respiratory disease (11 sources)Chronic vuvjtfph20-96-8067AehdbneEkmbg upper respiratory disease (11 sources)Seasonal allergic -43-7241CuidlrlFloqn upper respiratory disease (13 sources)Vocal cord kzkflkvitem00-00-2527UhwxppsgOfyaveewsiezwc and other problems of amniotic cavity (2 sources)Subchorionic hematoma; Translations: [Other specified disorders of amniotic fluid and membranes, first trimester, not applicable or unspecified] 89-86-2213JwpiobrcSlbydlea codes; unclassified (4 sources)Procedure and treatment not carried out, unspecified reason; Translations: [PROC AND TX NOT CARRIEDOUT UNS REASON]Onset: 14-16-0296Iyhyuozb Residual codes; unclassified (11 sources)History of dsihqxswcff88-73-2993WsicstkeEtqdxhvr codes; unclassified (2 sources)Gestation period, 11 weeks; Translations: [11 weeks gestation of ]50-63-6644QlvizdfkCfaowbwe codes; unclassified (4 sources)Gestation period, 15 weeks; Translations: [15 weeks gestation of ]Onset: 383771-70-6919TbqxtdypYfmxyvtg codes; unclassified (2 sources)Gestation period, 14 weeks; Translations: [14 weeks gestation of ]Onset: 785036-83-5964YbhpztdvUpakdutg codes; unclassified (1 source)15 weeks gestation of ; Translations: [15 weeks gestation of ([facility])]Onset: 98-74-1027YoyxruckYvfnliaz codes; unclassified (6 sources)Gestation period, 16 weeks; Translations: [16 weeks gestation of ]79-30-4741EtsgxmkdLlefkyvr codes; unclassified (2 sources)Gestation period, 20 weeks; Translations: [20 weeks gestation of ]83-77-6752ZmnsbvnmGimqjefp codes; unclassified (2 sources)Gestation period, 23 weeks; Translations: [23 weeks gestation of ]37-47-0372KqjckdtiKkpnthqt codes; unclassified (2 sources)Gestation period, 27 weeks; Translations: [27 weeks gestation of ]65-69-2689KdbfrvxeWphbuypu codes; unclassified (2 sources)Gestation period, 29 weeks; Translations: [29 weeks gestation of ]08-12-1270RpqvzlclPtvqpwwf codes; unclassified (1 source)Gestation period, 30 weeks; Translations: [30 weeks gestation of ]74-74-6756KjrgvkzvKhggxkka codes; unclassified (1 source)30 weeks gestation of ; Translations: [30 weeks gestation of ]Onset: 50-70-9189QozkajivJuedlznp codes; unclassified (2 sources)Gestation period, 31 weeks; Translations: [31 weeks gestation of ]09-27-4842ZcpqtwmzXpebkcuk codes; unclassified (2 sources)Gestation period, 33 weeks; Translations: [33 weeks gestation of ]01-24-2238SilospncXrfwmittuxh; intervertebral disc disorders; other back problems (11 sources)Zpxaxsoo36-70-2579MlbjvaemMblbfalwonl (11 sources)Lwjakrcvjrs85-73-5082HhlplssvTuaslmeeu-ncxinrz disorders (2 sources)Cannabis abuse; Translations: [Cannabis abuse with other cannabis- induced disorder]Onset: 29-98-6008LbytqskCjfqmow on above:Added secondary to documentation in Social History.Unclassified (1 source)COVID-19; Translations: [COVID-19]Onset: 86-78-0192Nhvulsgyvebw (15 sources)PregnancyOnset: 09-12-2012 Resolved: [id number]d (1 source)Maternal care for other (suspected) abnormality and damage, genitourinary anomalies, not applicable or unspecified; Translations: [Maternal care for other (suspected) abnormality and damage, genitourinary anomalies, not applicable or unspecified]Onset: 09-03-2024 Unclassified (1 source)IVF pregnancyOnset: 69-91-4853Hyttzguvuqha (1 source)Med ManagementOnset: 09-02-2024 Past or Other Problems Problem ClassificationProblemDateDocumented DateEpisodic/ChronicGastritis and duodenitis (14 sources)Gastritis; Translations: [Gastritis, unspecified, without bleeding] Onset: 974170-06-8791OnwryxkyIbfvwahuitffh symptoms and ill-defined conditions (20 sources)Proteinuria; Translations: [Proteinuria, unspecified]Onset: 712293-57-5399XqwgfuqiRmhpsncwkyzy diseases of female pelvic organs (12 sources)Female pelvic peritoneal adhesions (postinfective); Translations: [Chronic vaginitis]Onset: 538875-57-3556IocejmfvAhshw and unspecified benign neoplasm (11 sources)Benign neoplasm of pituitary glandOnset: EpisodicOther complications of ; puerperium affecting management of mother (20 sources)Anomaly of kidney; Translations: [ renal anomaly, single gestation]Onset: 716271-32-4511BqfwwyyzBtsic complications of (20 sources)Hyperemesis gravidarum; Translations: [Mild hyperemesis gravidarum] Onset: 161952-43-3801ZjbfoaaeOjkll complications of (20 sources)Placenta circumvallata; Translations: [Circumvallate placenta, second trimester]Onset: 628720-97-2764OofqxmbsQrfnu complications of (20 sources)Conceived by in vitro fertilization; Translations: [Supervision of resulting from assisted reproductive technology, second trimester] Onset: 137798-74-2028OkhckgikVcbkv complications of (3 sources)Mild hyperemesis gravidarum; Translations: [Mild hyperemesis gravidarum]Onset: 59-43-6785IpbhfjowDajib complications of (1 source)Circumvallate placenta, second trimester; Translations: [Circumvallate placenta, second trimester]Onset: 79-21-4524GqiduhrmMiibq complications of (2 sources)Low weight gain in , second trimester; Translations: [Low weight gain in , secondtrimester]Onset: 22-05-3959GbcvjtwuXzusx connective tissue disease (20 sources)Muscle pain; Translations: [Myalgia, unspecified site]Onset: 808563-67-3616RjtekozzYdnnt female genital disorders (20 sources)Fallopian tube disorder; Translations: [Noninflammatory disorder of ovary, fallopian tube and broadligament, unspecified]Onset: 301993-33-8060 EpisodicOther nutritional; endocrine; and metabolic disorders (12 sources)Weight lossOnset: 033503-11-9682HsujvyhlWajbl screening for suspected conditions (not mental disorders or infectious disease) (20 sources)Increased prolactin level; Translations: [Other specified abnormal findings of blood chemistry]Onset: 190309-08-5443IsvejaysDotbudhf codes; unclassified (2 sources)16 weeks gestation of ; Translations: [16 weeks gestation of ]Onset: 22-26-5170LbyvnqltApmvllgan-related disorders (20 sources)Marijuana user; Translations: [Drug use complicating , unspecified trimester]Onset: 585305-16-1672MxvyneckMpcomdwdlcgm (2 sources)Patient encounter atnhej70-71-2346Ukumkpvxscsy (1 source)Nausea and vomiting during aabdhigtp07-53-1278 Results Test NameValueInterpretationReference RangeFacilityInpatient Clinical Summaryon [id number] Clinical SummaryInpatient Clinical Summary [address] [address] Clinical Summary Person Information Name: INDU JORGENSEN [facility] Age: 29 Years : 1995 Sex: Female PCP: Yasmin WELCH DO Marital Status: Phone: [phone] Race: White Ethnicity: Non- or Language: Nauruan Visit Id: Visit Reason: Speciality: Acuity: Enc Type: Outpatient Med Service: Obstetrics Arrival: 01/12/2025 07:29:12 Discharge: 01/12/2025 08:11:41 Dispo Type: Home (Routine DC) Address: [address] [place] [id number] Provider Notes: Diagnosis: Problems Active Smoker (07/03/2024) Esophagitis Abnormal CT of the abdomen Visceral hypersensitivity syndrome Stress-related physiological response affecting medical condition Miscarriage Seasonal allergic rhinitis Sciatica Prolactinoma Pain in pelvis (09/25/2022) Malignant tumor of cervix Prolactin level above reference range (05/28/2023) History of laparoscopy Heartburn Fatigue Gastritis (07/20/2023) Endometriosis (clinical) (03/25/2020) Disorder of pituitary gland Abnormal uterine bleeding. 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 Chronic rhinitis Chronic vaginitis (03/25/2020) Depressive disorder (03/25/2020) Weight loss Asthma Bipolar disorder Nausea and vomiting Asthma Scoliosis vocal cord dysfunction Smoking Status: Functional Status: Sensory Deficits: History of Falls: Mobility Assistance Prior to Admission: ADLs: Current Level of Assistance for Self-Care/Mobility: Cognitive Status: Allergies No Known Allergies Laboratory or Other Results This Visit (last charted value for your 01/12/2025 visit) No Laboratory or Other Results This Visit Measurements: Height: Weight: Blood Pressure: Not Valued / Not Valued BMI: Procedures No Procedures Performed or Documented Immunizations No Immunizations Documented This Visit Final Med List: carbonyl iron (Iron Chews) 15 Milligram By Mouth every day. multivitamin, ( 19 ([place])) Oral. pantoprazole (Pantoprazole [address] Tab) 1 Tablets By Mouth. quetiapine (SEROquel 50 mg ER Tab) 2 Tablets By Mouth at bedtime. Care Team Members: Attending Physician: Uriel MEADE DO Consulting Physician: Referring Physician: Follow up: Type Location Start [facility] [place] FT.ULTRASOUND 01/15/2025 10:00 AM 01/15/2025 11:00 AM Confirmed Patient Education Information:[facility] Patient Summaryon [id number] Patient SummaryInpatient Patient Summary [place] [id number] Patient Discharge Instructions PERSON INFORMATION Name: INDU JORGENSEN Date of : 1995 Current Date: 01/12/2025 08:11:59 PHYSICIANS Admitting Physician: Uriel MEADE DO Primary Care Physician: Yasmin WELCH DO PCP Phone Number: [phone] Comment: Discharge Diagnosis: Condition at Discharge: Stable INDU JORGENSEN has been given the following list of follow-up instructions, prescriptions, and patient education materials: PATIENT FOLLOW-UP INFORMATION Diet: Activity: Wound Care Instructions: Remove Your Dressing IN: Days Call Your Doctor For: IF UNABLE TO CONTACT YOUR PHYSICIAN AND YOU FEEL IT IS AN EMERGENCY, GO TO THE NEAREST EMERGENCY ROOM OR CALL 911 Home Treatment: Devices/Equipment: Special Services: Additional Instructions: Physician to provide the following pending test results: None Follow up: In the event that this physician does not participate in your insurance network, please consult with your insurance company to find a nearby participating provider. Type Location Start [facility] [place] FT.ULTRASOUND 01/15/2025 10:00 AM 01/15/2025 11:00 AM Confirmed Comment: JAMEEL Nichole, INDU ALDRIDGE, have received the attached patient education materials/instructions and have verbalized understanding. Patient Signature Date Clinican/Nurse Signature Date MEDICATION LIST Medications to Continue with No Changes Other Medications carbonyl iron (Iron Chews) 15 Milligram By Mouth every day. Last Dose: Next Dose: multivitamin, ( 19 ([place])) Oral. Last Dose: Next Dose: pantoprazole (Pantoprazole [address] Tab) 1 Tablets By Mouth. Last Dose: Next Dose: quetiapine (SEROquel 50 mg ER Tab) 2 Tablets By Mouth at bedtime. Last Dose: Next Dose: PATIENT EDUCATION INFORMATION Instructions: Medication Leaflets: You may receive a survey from Jonathon Carlson asking you to rate your care experience. Your feedback is important and will help us understand what we do well and how we can improve the quality of care we provide to you, your loved ones and our community. It???s an honor to serve you. Patient Portal You may access all of your results and other medical record information on our secure patient portal. If you are not signed up for this yet, please contact Health Information Management at [phone] to get signed up today. NATALIE Award Nomination The NATALIE (Diseases Attacking the Immune SYstem) Award is an international recognition program thathonors and celebrates the skillful, compassionate care nurses provide every day. Anyone who experiences or observes amazing care being provided by a nurse is encouraged to submit a nomination. To nominate your nurse, use your smart phone to scan the QR code below. Language Information Language assistance services are available as needed. Thank you for choosing [facility] Clinical Summaryon [id number] Clinical Summary Inpatient Clinical Summary [address] [address] Clinical Summary Person Information Name: INDU JORGENSEN [facility] Age: 29 Years : 1995 Sex: Female PCP: Yasmin WELCH DO Marital Status: Phone: [phone] Race: White Ethnicity: Non- or Language: Nauruan Visit Id: Visit Reason: NST Speciality: Acuity: Enc Type: Outpatient Med Service: Obstetrics Arrival: 01/08/2025 08:35:14 Discharge: 01/08/2025 09:25:00 Dispo Type: Home (Routine DC) Address: [address] [place] [address] [id number] Provider Notes: Diagnosis: Problems Active Smoker (07/03/2024) Esophagitis Abnormal CT of the abdomen Visceral hypersensitivity syndrome Stress-related physiological response affecting medical condition Miscarriage Seasonal allergic rhinitis Sciatica Prolactinoma Pain in pelvis (09/25/2022) Malignant tumor of cervix Prolactin level above reference range (05/28/2023) History of laparoscopy Heartburn Fatigue Gastritis (07/20/2023) Endometriosis (clinical) (03/25/2020) Disorder of pituitary gland Abnormal uterine bleeding. 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 Chronic rhinitis Chronic vaginitis (03/25/2020) Depressive disorder (03/25/2020) Weight loss Asthma Bipolar disorder Nausea and vomiting Asthma Scoliosis vocal cord dysfunction Smoking Status: Functional Status: Sensory Deficits: History of Falls: Mobility Assistance Prior to Admission: ADLs: Current Level of Assistance for Self-Care/Mobility: Cognitive Status: Allergies No Known Allergies Laboratory or Other Results This Visit (last charted value for your 01/08/2025 visit) No Laboratory or Other Results This Visit Measurements: Height: Weight: Blood Pressure: Not Valued / Not Valued BMI: Procedures No Procedures Performed or Documented Immunizations No Immunizations Documented This Visit Final Med List: carbonyl iron (Iron Chews) 15 Milligram By Mouth every day. multivitamin, ( 19 ([place])) Oral. pantoprazole (Pantoprazole [address] Tab) 1 Tablets By Mouth. quetiapine (SEROquel 50 mg ER Tab) 2 Tablets By Mouth at bedtime. Care Team Members: Attending Physician: Uriel MEADE DO Consulting Physician: Referring Physician: Follow up: Type Location Start [facility] [place] FT.ULTRASOUND 01/15/2025 10:00 AM 01/15/2025 11:00 AM Confirmed Patient Education Information:[facility] Patient Summaryon [id number] Patient SummaryInpatient Patient Summary [address] [address] Patient Discharge Instructions PERSON INFORMATION Name: INDU JORGENSEN Date of : 1995 Current Date: 01/08/2025 09:40:30 PHYSICIANS Admitting Physician: Uriel MEADE DO Primary Care Physician: Yasmin WELCH DO PCP Phone Number: [phone] Comment: Discharge Diagnosis: Condition at Discharge: Stable JAMEEL, INDU ALDRIDGE has been given the following list of follow-up instructions, prescriptions, and patient education materials: PATIENT FOLLOW-UP INFORMATION Diet: Activity: Wound Care Instructions: Remove Your Dressing IN: Days Call Your Doctor For: IF UNABLE TO CONTACT YOUR PHYSICIAN AND YOU FEEL IT IS AN EMERGENCY, GO TO THE NEAREST EMERGENCY ROOM OR CALL 911 Home Treatment: Devices/Equipment: Special Services: Additional Instructions: Physician to provide the following pending test results: None Follow up: In the event that this physician does not participate in your insurance network, please consult with your insurance company to find a nearby participating provider. Type Location [facility] [place] FT.ULTR[place]OUND 01/15/2025 10:00 AM 01/15/2025 11:00 AM Confirmed Comment: IJAMEEL ERICA LYNN, have received the attached patient education materials/instructions and have verbalized understanding. Patient Signature Date Clinican/Nurse Signature Date MEDICATION LIST Medications to Continue with No Changes Other Medications carbonyl iron (Iron Chews) 15 Milligram By Mouth every day. Last Dose: Next Dose: multivitamin, ( 19 ([place])) Oral. Last Dose: Next Dose: pantoprazole (Pantoprazole [address] Tab) 1 Tablets By Mouth. Last Dose: Next Dose: quetiapine (SEROquel 50 mg ER Tab) 2 Tablets By Mouth at bedtime. Last Dose: Next Dose: PATIENT EDUCATION INFORMATION Instructions: Medication Leaflets: You may receive a survey from [employer] asking you to rate your care experience. Your feedback is important and will help us understand what we do well and how we can improve the quality of care we provide to you, your loved ones and our community. It???s an honor to serve you. Patient Portal You may access all of your results and other medical record information on our secure patient portal. If you are not signed up for this yet, please contact [email or web address] at [phone] to get signed up today. NATALIE Award Nomination The NATALIE (Diseases Attacking the Immune SYstem) Award is an international recognition program thathonors and celebrates the skillful, compassionate care nurses provide every day. Anyone who experiences or observes amazing care being provided by a nurse is encouraged to submit a nomination. To nominate your nurse, use your smart phone to scan the QR code below. Language Information Language assistance services are available as needed. [facility] you for choosing [facility] Bi[facility] w/ Non-Stron [id number] Biophysical Profile w/ Non-StrExam Date/Time: 01/08/2025 08:47 EST Reason for Exam: O09.812 Report IMPRESSION: BIOPHYSICAL PROFILE SCORE OF 8 OUT OF 8. DATE: 01/08/2025 7:59 AM EXAM: [place] Biophysical Profile w/ N-Str CLINICAL HISTORY: O812 Gestational Age by LMP: 35 weeks, 0 days. COMPARISON: 01/01/2025 TECHNIQUE: Grayscale evaluation of the fetus was performed for biophysical profile purposes and does not constitute an anatomic survey. FINDINGS: There is a single intrauterine fetus in a cephalic position. There is a grade 2-3 anterior placenta without evidence of placenta previa. Amniotic Fluid Index: 12.6 cm cardiac activity is measured at 118 bpm. Points were awarded for the following: * Breathin *Gross Body Movement: 2 * Tone: 2 *Amniotic Fluid Volume: 2 Biophysical Profile Sum Score: 8 Please see separate nonstress test results. Ordering Provider: Uriel MEADE FINAL REPORT Dictated: 01/08/2025 1:06 pm Arun Bhatia MD Signed (Electronic Signature): 01/08/2025 1:06 pm Signed by: Arun Bhatia MD Transcribed by: JURGEN Technologist: [facility] Summaryon [id number] Clinical SummaryInpatient Clinical Summary [address] [address] Clinical Summary Person Information Name: INDU JORGENSEN [facility] Age: 29 Years : 1995 Sex: Female PCP: Yasmin WELCH DO Marital Status: Phone: [phone] Race: White Ethnicity: Non- or Language: Nauruan Visit Id: Visit Reason: NST Speciality: Acuity: Enc Type: Outpatient Med Service: Obstetrics Arrival: 01/05/2025 07:29:29 Discharge: 01/05/2025 08:15:47 Dispo Type: Home (Routine DC) Address: [address] [place] [address] [place] [id number] Provider Notes: Diagnosis: Problems Active Smoker (07/03/2024) Esophagitis Abnormal CT of the abdomen Visceral hypersensitivity syndrome Stress-related physiological response affecting medical condition Miscarriage Seasonal allergic rhinitis Sciatica Prolactinoma Pain in pelvis (09/25/2022) Malignant tumor of cervix Prolactin level above reference range (05/28/2023) History of laparoscopy Heartburn Fatigue Gastritis (07/20/2023) Endometriosis (clinical) (03/25/2020) Disorder of pituitary gland Abnormal uterine bleeding. 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 Chronic rhinitis Chronic vaginitis (03/25/2020) Depressive disorder (03/25/2020) Weight loss Asthma Bipolar disorder Nausea and vomiting Asthma Scoliosis vocal cord dysfunction Smoking Status: Functional Status: Sensory Deficits: History of Falls: Mobility Assistance Prior to Admission: ADLs: Current Level of Assistance for Self-Care/Mobility: Cognitive Status: Allergies No Known Allergies Laboratory or Other Results This Visit (last charted value for your 01/05/2025 visit) No Laboratory or Other Results This Visit Measurements: Height: Weight: Blood Pressure: Not Valued / Not Valued BMI: Procedures No Procedures Performed or Documented Immunizations No Immunizations Documented This Visit Final Med List: carbonyl iron (Iron Chews) 15 Milligram By Mouth every day. multivitamin, ( 19 ([place])) Oral. pantoprazole (Pantoprazole [address] Tab) 1 Tablets By Mouth. quetiapine (SEROquel 50 mg ER Tab) 2 Tablets By Mouth at bedtime. Care Team Members: Attending Physician: Uriel MEADE DO Consulting Physician: Referring Physician: Follow up: Type Location [facility] [place] FT.ULTRASOUND 01/08/2025 8:00 AM 01/08/2025 9:00 AM Confirmed [place] ([place] FT.ULTRASOUND 01/15/2025 10:00 AM 01/15/2025 11:00 AM Confirmed Patient Education Information:[facility] HospitalIn[facility] Patient Summaryon [id number] Patient SummaryInpatient Patient Summary [place] [address] Patient Discharge Instructions PERSON INFORMATION Name: INDU JORGENSEN Date of : 1995 Current Date: 01/05/2025 08:31:07 PHYSICIANS Admitting Physician: Uriel MEADE DO Primary Care Physician: Yasmin WELCH DO PCP Phone Number: [phone] Comment: Discharge Diagnosis: Condition at Discharge: Stable INDU JORGENSEN has been given the following list of follow-up instructions, prescriptions, and patient education materials: PATIENT FOLLOW-UP INFORMATION Diet: Activity: Wound Care Instructions: Remove Your Dressing IN: Days Call Your Doctor For: IF UNABLE TO CONTACT YOUR PHYSICIAN AND YOU FEEL IT IS AN EMERGENCY, GO TO THE NEAREST EMERGENCY ROOM OR CALL 911 Home Treatment: Devices/Equipment: Special Services: Additional Instructions: Physician to provide the following pending test results: None Follow up: In the event that this physician does not participate in your insurance network, please consult with your insurance company to find a nearby participating provider. Type Location [facility] [place] FT.ULTRASOUND 01/08/2025 8:00 AM 01/08/2025 9:00 AM Confirmed [place] ([place] FT.ULTRASOUND 01/15/2025 10:00 AM 01/15/2025 11:00 AM Confirmed Comment: I, INDU JORGENSEN, have received the attached patient education materials/instructions and have verbalized understanding. Patient Signature Date Clinican/Nurse Signature Date MEDICATION LIST Medications to Continue with No Changes Other Medications carbonyl iron (Iron Chews) 15 Milligram By Mouth every day. Last Dose: Next Dose: multivitamin, ( 19 ([place])) Oral. Last Dose: Next Dose: pantoprazole (Pantoprazole [address] Tab) 1 Tablets By Mouth. Last Dose: Next Dose: quetiapine (SEROquel 50 mg ER Tab) 2 Tablets By Mouth at bedtime. Last Dose: Next Dose: PATIENT EDUCATION INFORMATION Instructions: Medication Leaflets: You may receive a survey from [employer] asking you to rate your care experience. Your feedback is important and will help us understand what we do well and how we can improve the quality of care we provide to you, your loved ones and our community. It???s an honor to serve you. Patient Portal You may access all of your results and other medical record information on our secure patient portal. If you are not signed up for this yet, please contact [email or web address] at [phone] to get signed up today. NATALIE Award Nomination The NATALIE (Diseases Attacking the Immune SYstem) Award is an international recognition program thathonors and celebrates the skillful, compassionate care nurses provide every day. Anyone who experiences or observes amazing care being provided by a nurse is encouraged to submit a nomination. To nominate your nurse, use your smart phone to scan the QR code below. Language Information Language assistance services are available as needed. Thank you for choosing [facility] InstituteIn[facility] Clinical Summaryon [id number] Clinical Summary Inpatient Clinical Summary [address] [address] Clinical Summary Person Information Name: INDU JORGENSEN [facility] Age: 29 Years : 1995 Sex: Female PCP: Yasmin WELCH DO Marital Status: Phone: [phone] Race: White Ethnicity: Non- or Language: Nauruan Visit Id: Visit Reason: nst Speciality: Acuity: Enc Type: Outpatient Med Service: Obstetrics Arrival: 01/01/2025 10:33:00 Discharge: 01/01/2025 11:03:00 Dispo Type: Home (Routine DC) Address: [address] [place] [id number] Provider Notes: Diagnosis: Problems Active Smoker (07/03/2024) Esophagitis Abnormal CT of the abdomen Visceral hypersensitivity syndrome Stress-related physiological response affecting medical condition Miscarriage Seasonal allergic rhinitis Sciatica Prolactinoma Pain in pelvis (09/25/2022) Malignant tumor of cervix Prolactin level above reference range (05/28/2023) History of laparoscopy Heartburn Fatigue Gastritis (07/20/2023) Endometriosis (clinical) (03/25/2020) Disorder of pituitary gland Abnormal uterine bleeding. 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 Chronic rhinitis Chronic vaginitis (03/25/2020) Depressive disorder (03/25/2020) Weight loss Asthma Bipolar disorder Nausea and vomiting Asthma Scoliosis vocal cord dysfunction Smoking Status: Functional Status: Sensory Deficits: History of Falls: Mobility Assistance Prior to Admission: ADLs: Current Level of Assistance for Self-Care/Mobility: Cognitive Status: Allergies No Known Allergies Laboratory or Other Results This Visit (last charted value for your 01/01/2025 visit) No Laboratory or Other Results This Visit Measurements: Height: Weight: Blood Pressure: Not Valued / Not Valued BMI: Procedures No Procedures Performed or Documented Immunizations No Immunizations Documented This Visit Final Med List: carbonyl iron (Iron Chews) 15 Milligram By Mouth every day. multivitamin, ( 19 ([place])) Oral. pantoprazole (Pantoprazole [address] Tab) 1 Tablets By Mouth. quetiapine (SEROquel 50 mg ER Tab) 2 Tablets By Mouth at bedtime. Care Team Members: Attending Physician: Uriel MEADE DO Consulting Physician: Referring Physician: Follow up: Type Location [facility] [place] FT.ULTRASOUND 01/08/2025 10:00 AM 01/08/2025 11:00 AM Confirmed [place] FT.ULTRASOUND 01/15/2025 10:00 AM 01/15/2025 11:00 AM Confirmed Patient Education Information:[facility] Patient Summaryon [id number] Patient SummaryInpatient Patient Summary [place] [id number] Patient Discharge Instructions PERSON INFORMATION Name: INDU JORGENSEN Date of : 1995 Current Date: 01/01/2025 11:26:10 PHYSICIANS Admitting Physician: Uriel MEADE DO Primary Care Physician: Yasmin WELCH DO PCP Phone Number: [phone] Comment: Discharge Diagnosis: Condition at Discharge: Stable INDU JORGENSEN has been given the following list of follow-up instructions, prescriptions, and patient education materials: PATIENT FOLLOW-UP INFORMATION Diet: Activity: Wound Care Instructions: Remove Your Dressing IN: Days Call Your Doctor For: IF UNABLE TO CONTACT YOUR PHYSICIAN AND YOU FEEL IT IS AN EMERGENCY, GO TO THE NEAREST EMERGENCY ROOM OR CALL 911 Home Treatment: Devices/Equipment: Special Services: Additional Instructions: Physician to provide the following pending test results: None Follow up: In the event that this physician does not participate in your insurance network, please consult with your insurance company to find a nearby participating provider. Type Location Start Finish [facility] US (FT) FT.ULTRASOUND 01/08/2025 10:00 AM 01/08/2025 11:00 AM Confirmed US (FT) FT.ULTRASOUND 01/15/2025 10:00 AM 01/15/2025 11:00 AM Confirmed Comment: JAMEEL Nichole ERICA LYNN, have received the attached patient education materials/instructions and have verbalized understanding. Patient Signature Date Clinican/Nurse Signature Date MEDICATION LIST Medications to Continue with No Changes Other Medications carbonyl iron (Iron Chews) 15 Milligram By Mouth every day. Last Dose: Next Dose: multivitamin, ( 19 ([place])) Oral. Last Dose: Next Dose: pantoprazole (Pantoprazole [address] Tab) 1 Tablets By Mouth. Last Dose: Next Dose: quetiapine (SEROquel 50 mg ER Tab) 2 Tablets By Mouth at bedtime. Last Dose: Next Dose: PATIENT EDUCATION INFORMATION Instructions: Medication Leaflets: You may receive a survey from Jonathon Carlson asking you to rate your care experience. Your feedback is important and will help us understand what we do well and how we can improve the quality of care we provide to you, your loved ones and our community. It???s an honor to serve you. Patient Portal You may access all of your results and other medical record information on our secure patient portal. If you are not signed up for this yet, please contact [employer] at [phone] to get signed up today. NATALIE Award Nomination The NATALIE (Diseases Attacking the Immune SYstem) Award is an international recognition program thathonors and celebrates the skillful, compassionate care nurses provide every day. Anyone who experiences or observes amazing care being provided by a nurse is encouraged to submit a nomination. To nominate your nurse, use your smart phone to scan the QR code below. Language Information Language assistance services are available as needed. [facility] w/ Non-Stron [id number] Biophysical Profile w/ Non-StrExam Date/Time: 01/01/2025 10:39 EDT Reason for Exam: O09.812 Report IMPRESSION: BIOPHYSICAL PROFILE SCORE OF 8 OUT OF 8. DATE: 01/01/2025 10:03 AM EXAM: US Biophysical Profile w/ N-Str CLINICAL HISTORY: O09.812 Gestational Age by LMP: 34 weeks, 0 days 34w0d (weeks/days). COMPARISON: 12/25/2024. TECHNIQUE: Grayscale evaluation of the fetus was performed for biophysical profile purposes and does not constitute an anatomic survey. FINDINGS: There is a single intrauterine fetus in a cephalic position. A grade 2-3 anterior anterior placenta without evidence of placenta previa. Amniotic Fluid Index: 14.9 cm cardiac activity is measured at 130 bpm. Points were awarded for the following: * Breathin *Gross Body Movement: 2 * Tone: 2 *Amniotic Fluid Volume: 2 Biophysical Profile Sum Score: 8 Please see separate nonstress test results. Ordering Provider: Uriel MEADE FINAL REPORT Dictated: 01/01/2025 4:56 pm Arun Bhatia MD Signed (Electronic Signature): 01/01/2025 4:56 pm Signed by: Arun Bhatia MD Transcribed by: JURGEN Technologist: [facility] OB FOLLOW UP TRANSABDOMINAL APPROACHon [id number] OB FOLLOW UP TRANSABDOMINAL APPROACH FINDINGS: A single, live intrauterine is present with normal cardiac rate of 134 beats per minute. Normal activity and amniotic fluid volume. Amniotic fluid index is 11 cm. Morphology is grossly normal with exception of a large bladder volume, no significant ureteral dilatation. The current sonographic age is 34 weeks and 5 days, based on the following measurements: BPD 8.4 cm (34 weeks, 0 days) Head Circumference 31.4cm (35 weeks, 1 days) Abdominal Circumference 32.0cm (36 weeks, 0 days) Femur Length 6.6cm (33 weeks, 6 days) Presentation Cephalic Weight (g) by Percentile 79.5 % * These measurements result in an estimated date of delivery of February 06, 2025. The current estimated weight is 2592 grams ( 5 pound, 11 ounces). IMPRESSION: 1. Single, live intrauterine , current sonographic age of 34 weeks and 5 days, with an estimated date of delivery of February 06, 2025. 2. 5 pounds 11 ounces. 79.5% 3. Mild distention of the bladder, no significant vesicoureteral reflux suggested. Findings may represent presence of posterior urethral valves. * Estimated Weight (g) by Percentile is based upon an accurate estimated age based on last menstrual period. TRANSCRIBED BY: ELECTRONICALLY SIGNED BY: Onur Azar AvailableComment on above:Order Comment: US OB SCAN FOR GROWTH Estimated Date of Delivery: 02/12/25 Gestational Age as of 12/16/2024: [id number] macro (dipstick) panel (U)on [id number], UANegativeNegative - 4(70) +++ mg/dLNOMS HealthcareBlood, UANegativeNegative - 50 Mick/mcLNOMS HealthcareClarity, UAClearNOMS Healthcare Color, UAYellowNOMS HealthcareGlucose, UANegativeNegative - 2000(110) ++++ mg/dL NOMS HealthcareInterpretation and review of laboratory resultsAbnormalNOMS HealthcareKetones, UANegativeNegative - 160(16) ++++ mg/dLNOMS Healthcare Leukocytes, UA1+Negative - 500+++ Campos/mcLNOMS HealthcareNitrite, UANegative Negative - PositiveNOMS HealthcarepH, UA7.05 - 9NOMS HealthcareProtein, UATrace Negative - 2000(20) ++++ mg/dLNOMS HealthcareSpec Grav, UA1.0101 - 1.03NOMS HealthcareUrobilinogen, UA2.00.2 - 12 mg/dLNOMS HealthcareNOMS Healthcare Inpatient Clinical Summaryon [id number] Clinical SummaryInpatient Clinical Summary [address] [address] Clinical Summary Person Information Name: INDU JORGENSEN [facility] Age: 29 Years : 1995 Sex: Female PCP: Yasmin WELCH DO Marital Status: Phone: [phone] Race: White Ethnicity: Non- or Language: Nauruan Visit Id: Visit Reason: NST Speciality: Acuity: Enc Type: Outpatient Med Service: Obstetrics Arrival: 12/29/2024 07:35:37 Discharge: 12/29/2024 08:15:00 Dispo Type: Home (Routine DC) Address: [address] [place] [id number] Provider Notes: Diagnosis: Problems Active Smoker (07/03/2024) Esophagitis Abnormal CT of the abdomen Visceral hypersensitivity syndrome Stress-related physiological response affecting medical condition Miscarriage Seasonal allergic rhinitis Sciatica Prolactinoma Pain in pelvis (09/25/2022) Malignant tumor of cervix Prolactin level above reference range (05/28/2023) History of laparoscopy Heartburn Fatigue Gastritis (07/20/2023) Endometriosis (clinical) (03/25/2020) Disorder of pituitary gland Abnormal uterine bleeding. 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 Chronic rhinitis Chronic vaginitis (03/25/2020) Depressive disorder (03/25/2020) Weight loss Asthma Bipolar disorder Nausea and vomiting Asthma Scoliosis vocal cord dysfunction Smoking Status: Functional Status: Sensory Deficits: History of Falls: Mobility Assistance Prior to Admission: ADLs: Current Level of Assistance for Self-Care/Mobility: Cognitive Status: Allergies No Known Allergies Laboratory or Other Results This Visit (last charted value for your 12/29/2024 visit) No Laboratory or Other Results This Visit Measurements: Height: Weight: Blood Pressure: Not Valued / Not Valued BMI: Procedures No Procedures Performed or Documented Immunizations No Immunizations Documented This Visit Final Med List: carbonyl iron (Iron Chews) 15 Milligram By Mouth every day. multivitamin, ( 19 ([place])) Oral. pantoprazole (Pantoprazole [address] Tab) 1 Tablets By Mouth. quetiapine (SEROquel 50 mg ER Tab) 2 Tablets By Mouth at bedtime. Care Team Members: Attending Physician: Uriel MEADE DO Consulting Physician: Referring Physician: Follow up: Type Location Start Finish State US (FT) FT.ULTRASOUND 01/01/2025 10:00 AM 01/01/2025 11:00 AM Confirmed US (FT) FT.ULTRASOUND 01/08/2025 10:00 AM 01/08/2025 11:00 AM Confirmed US (FT) FT.ULTRASOUND 01/15/2025 10:00 AM 01/15/2025 11:00 AM Confirmed Patient Education Information:[facility] Summaryon [id number] Patient SummaryInpatient Patient Summary [address] [address] Patient Discharge Instructions PERSON INFORMATION Name: INDU JORGENSEN Date of : 1995 Current Date: 12/29/2024 09:06:08 PHYSICIANS Admitting Physician: Primary Care Physician: Yasmin WELCH DO PCP Phone Number: [phone] Comment: Discharge Diagnosis: Condition at Discharge: Stable INDU JORGENSEN has been given the following list of follow-up instructions, prescriptions, and patient education materials: PATIENT FOLLOW-UP INFORMATION Diet: Activity: Wound Care Instructions: Remove Your Dressing IN: Days Call Your Doctor For: IF UNABLE TO CONTACT YOUR PHYSICIAN AND YOU FEEL IT IS AN EMERGENCY, GO TO THE NEAREST EMERGENCY ROOM OR CALL 911 Home Treatment: Devices/Equipment: Special Services: Additional Instructions: Physician to provide the following pending test results: None Follow up: In the event that this physician does not participate in your insurance network, please consult with your insurance company to find a nearby participating provider. Type Location Start Finish State US (FT) FT.ULTRASOUND 01/01/2025 10:00 AM 01/01/2025 11:00 AM Confirmed US (FT) FT.ULTRASOUND 01/08/2025 10:00 AM 01/08/2025 11:00 AM Confirmed US (FT) FT.ULTRASOUND 01/15/2025 10:00 AM 01/15/2025 11:00 AM Confirmed Comment: IJAMEEL ERICA LYNN, have received the attached patient education materials/instructions and have verbalized understanding. Patient Signature Date Clinican/Nurse Signature Date MEDICATION LIST Medications to Continue with No Changes Other Medications carbonyl iron (Iron Chews) 15 Milligram By Mouth every day. Last Dose: Next Dose: multivitamin, ( 19 ([place])) Oral. Last Dose: Next Dose: pantoprazole (Pantoprazole [address] Tab) 1 Tablets By Mouth. Last Dose: Next Dose: quetiapine (SEROquel 50 mg ER Tab) 2 Tablets By Mouth at bedtime. Last Dose: Next Dose: PATIENT EDUCATION INFORMATION Instructions: Medication Leaflets: You may receive a survey from Jonathon Carlson asking you to rate your care experience. Your feedback is important and will help us understand what we do well and how we can improve the quality of care we provide to you, your loved ones and our community. It???s an honor to serve you. Patient Portal You may access all of your results and other medical record information on our secure patient portal. If you are not signed up for this yet, please contact [email or web address] at [phone] to get signed up today. NATALIE Award Nomination The NATALIE (Diseases Attacking the Immune SYstem) Award is an international recognition program thathonors and celebrates the skillful, compassionate care nurses provide every day. Anyone who experiences or observes amazing care being provided by a nurse is encouraged to submit a nomination. To nominate your nurse, use your smart phone to scan the QR code below. Language Information Language assistance services are available as needed. [facility] you [facility] choosing [facility] Clinical Summaryon [id number] Clinical Summary Inpatient Clinical Summary [place] [id number] Clinical Summary Person Information Name: INDU JORGENSEN [facility] Age: 29 Years : 1995 Sex: Female PCP: Yasmin WELCH DO Marital Status: Phone: [phone] Race: White Ethnicity: Non- or Language: Nauruan Visit Id: Visit Reason: nst Speciality: Acuity: Enc Type: Outpatient Med Service: Obstetrics Arrival: 12/25/2024 10:29:02 Discharge: 12/25/2024 11:10:00 Dispo Type: Home (Routine DC) Address: [address] [place] [id number] Provider Notes: Diagnosis: Problems Active Smoker (07/03/2024) Esophagitis Abnormal CT of the abdomen Visceral hypersensitivity syndrome Stress-related physiological response affecting medical condition Miscarriage Seasonal allergic rhinitis Sciatica Prolactinoma Pain in pelvis (09/25/2022) Malignant tumor of cervix Prolactin level above reference range (05/28/2023) History of laparoscopy Heartburn Fatigue Gastritis (07/20/2023) Endometriosis (clinical) (03/25/2020) Disorder of pituitary gland Abnormal uterine bleeding. 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 Chronic rhinitis Chronic vaginitis (03/25/2020) Depressive disorder (03/25/2020) Weight loss Asthma Bipolar disorder Nausea and vomiting Asthma Scoliosis vocal cord dysfunction Smoking Status: Functional Status: Sensory Deficits: History of Falls: Mobility Assistance Prior to Admission: ADLs: Current Level of Assistance for Self-Care/Mobility: Cognitive Status: Allergies No Known Allergies Laboratory or Other Results This Visit (last charted value for your 12/25/2024 visit) No Laboratory or Other Results This Visit Measurements: Height: Weight: Blood Pressure: Not Valued / Not Valued BMI: Procedures No Procedures Performed or Documented Immunizations No Immunizations Documented This Visit Final Med List: carbonyl iron (Iron Chews) 15 Milligram By Mouth every day. multivitamin, ( 19 ([place])) Oral. pantoprazole (Pantoprazole [address] Tab) 1 Tablets By Mouth. quetiapine (SEROquel 50 mg ER Tab) 2 Tablets By Mouth at bedtime. Care Team Members: Attending Physician: Uriel MEADE DO Consulting Physician: Referring Physician: Follow up: Type Location Start Finish State US (FT) FT.[email or web address] 01/01/2025 10:00 AM 01/01/2025 11:00 AM Confirmed US (FT) FT.ULTRASOUND 01/08/2025 10:00 AM 01/08/2025 11:00 AM Confirmed US (FT) FT.ULTRASOUND 01/15/2025 10:00 AM 01/15/2025 11:00 AM Confirmed Patient Education Information:[facility] Patient Summaryon [id number] Patient SummaryInpatient Patient Summary [place] [id number] Patient Discharge Instructions PERSON INFORMATION Name: INDU JORGENSEN Date of : 1995 Current Date: 12/25/2024 11:39:29 PHYSICIANS Admitting Physician: Uriel MEADE DO Primary Care Physician: Yasmin WELCH DO PCP Phone Number: [phone] Comment: Discharge Diagnosis: Condition at Discharge: INDU JORGENSEN has been given the following list of follow-up instructions, prescriptions, and patient education materials: PATIENT FOLLOW-UP INFORMATION Diet: Activity: Wound Care Instructions: Remove Your Dressing IN: Days Call Your Doctor For: IF UNABLE TO CONTACT YOUR PHYSICIAN AND YOU FEEL IT IS AN EMERGENCY, GO TO THE NEAREST EMERGENCY ROOM OR CALL 911 Home Treatment: Devices/Equipment: Special Services: Additional Instructions: Physician to provide the following pending test results: Follow up: In the event that this physician does not participate in your insurance network, please consult with your insurance company to find a nearby participating provider. Type Location Start Finish State US (FT) FT.[email or web address] 01/01/2025 10:00 AM 01/01/2025 11:00 AM Confirmed US (FT) FT.ULTRASOUND 01/08/2025 10:00 AM 01/08/2025 11:00 AM Confirmed US (FT) FT.ULTRASOUND 01/15/2025 10:00 AM 01/15/2025 11:00 AM Confirmed Comment: JAMEEL Nichole, INDU ALDRIDGE, have received the attached patient education materials/instructions and have verbalized understanding. Patient Signature Date Clinican/Nurse Signature Date MEDICATION LIST Medications to Continue with No Changes Other Medications carbonyl iron (Iron Chews) 15 Milligram By Mouth every day. Last Dose: Next Dose: multivitamin, ( 19 ([place])) Oral. Last Dose: Next Dose: pantoprazole (Pantoprazole [address] Tab) 1 Tablets By Mouth. Last Dose: Next Dose: quetiapine (SEROquel 50 mg ER Tab) 2 Tablets By Mouth at bedtime. Last Dose: Next Dose: PATIENT EDUCATION INFORMATION Instructions: Medication Leaflets: You may receive a survey from Jonathon Carlson asking you to rate your care experience. Your feedback is important and will help us understand what we do well and how we can improve the quality of care we provide to you, your loved ones and our community. It???s an honor to serve you. Patient Portal You may access all of your results and other medical record information on our secure patient portal. If you are not signed up for this yet, please contact [email or web address] at [phone] to get signed up today. NATALIE Award Nomination The NATALIE (Diseases Attacking the Immune SYstem) Award is an international recognition program thathonors and celebrates the skillful, compassionate care nurses provide every day. Anyone who experiences or observes amazing care being provided by a nurse is encouraged to submit a nomination. To nominate your nurse, use your smart phone to scan the QR code below. Language Information Language assistance services are available as needed. [facility] Biophysical Profile w/o N-Stron [id number] Biophysical Profile w/o N-StrExam Date/Time: 12/25/2024 10:33 EDT Reason for Exam: O09.812 Report IMPRESSION: BIOPHYSICAL PROFILE SCORE OF 8 OUT OF 8. DATE: 12/25/2024 9:56 AM EXAM: US Biophysical Profile w/o N-Str CLINICAL HISTORY: O09.812 Gestational Age by LMP: 33 weeks, 0 days. COMPARISON: Most recently 12/18/2024. TECHNIQUE: Grayscale evaluation of the fetus was performed for biophysical profile purposes and does not constitute an anatomic survey. FINDINGS: There is a single intrauterine fetus in a cephalic position. There is a grade 2-3 anterior placenta without evidence of placenta previa. Amniotic Fluid Index: 11.9 cm cardiac activity is measured at 160 bpm. Points were awarded for the following: * Breathin *Gross Body Movement: 2 * Tone: 2 *Amniotic Fluid Volume: 2 Biophysical Profile Sum Score: 8 Ordering Provider: Uriel MEADE FINAL REPORT Dictated: 12/25/2024 11:23 am Arun Bhatia MD Signed (Electronic Signature): 12/25/2024 11:23 am Signed by: Arun Bhatia MD Transcribed by: JURGEN Technologist: [facility]In[facility] Summaryon [id number] Clinical SummaryInpatient Clinical Summary [place] [id number] Clinical Summary Person Information Name: INDU JORGENSEN [facility] Age: 29 Years : 1995 Sex: Female PCP: Yasmin WELCH DO Marital Status: Phone: [phone] Race: White Ethnicity: Non- or Language: Nauruan Visit Id: Visit Reason: NST Speciality: Acuity: Enc Type: Outpatient Med Service: Obstetrics Arrival: 12/22/2024 07:38:18 Discharge: 12/22/2024 08:55:00 Dispo Type: Home (Routine DC) Address: [address] [place] [id number] Provider Notes: Diagnosis: Problems Active Smoker (07/03/2024) Esophagitis Abnormal CT of the abdomen Visceral hypersensitivity syndrome Stress-related physiological response affecting medical condition Miscarriage Seasonal allergic rhinitis Sciatica Prolactinoma Pain in pelvis (09/25/2022) Malignant tumor of cervix Prolactin level above reference range (05/28/2023) History of laparoscopy Heartburn Fatigue Gastritis (07/20/2023) Endometriosis (clinical) (03/25/2020) Disorder of pituitary gland Abnormal uterine bleeding. 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 Chronic rhinitis Chronic vaginitis (03/25/2020) Depressive disorder (03/25/2020) Weight loss Asthma Bipolar disorder Nausea and vomiting Asthma Scoliosis vocal cord dysfunction Smoking Status: Functional Status: Sensory Deficits: History of Falls: Mobility Assistance Prior to Admission: ADLs: Current Level of Assistance for Self-Care/Mobility: Cognitive Status: Allergies No Known Allergies Laboratory or Other Results This Visit (last charted value for your 12/22/2024 visit) No Laboratory or Other Results This Visit Measurements: Height: Weight: Blood Pressure: Not Valued / Not Valued BMI: Procedures No Procedures Performed or Documented Immunizations No Immunizations Documented This Visit Final Med List: carbonyl iron (Iron Chews) 15 Milligram By Mouth every day. multivitamin, ( 19 ([place])) Oral. pantoprazole (Pantoprazole [address] Tab) 1 Tablets By Mouth. quetiapine (SEROquel 50 mg ER Tab) 2 Tablets By Mouth at bedtime. Care Team Members: Attending Physician: Uriel MEADE DO Consulting Physician: Referring Physician: Follow up: Type Location Start Finish State US (FT) FT.[email or web address] 12/25/2024 10:00 AM 12/25/2024 11:00 AM Confirmed US (FT) FT.[email or web address] 01/01/2025 10:00 AM 01/01/2025 11:00 AM Confirmed US (FT) FT.[email or web address] 01/08/2025 10:00 AM 01/08/2025 11:00 AM Confirmed US (FT) FT.[email or web address] 01/15/2025 10:00 AM 01/15/2025 11:00 AM Confirmed Patient Education Information:[facility] Patient Summaryon [id number] Patient SummaryInpatient Patient Summary [address] [address] Patient Discharge Instructions PERSON INFORMATION Name: INDU JORGENSEN Date of : 1995 Current Date: 12/22/2024 09:03:01 PHYSICIANS Admitting Physician: Uriel MEADE DO Primary Care Physician: Yasmin WELCH DO PCP Phone Number: [phone] Comment: Discharge Diagnosis: Condition at Discharge: INDU JORGENSEN has been given the following list of follow-up instructions, prescriptions, and patient education materials: PATIENT FOLLOW-UP INFORMATION Diet: Activity: Wound Care Instructions: Remove Your Dressing IN: Days Call Your Doctor For: IF UNABLE TO CONTACT YOUR PHYSICIAN AND YOU FEEL IT IS AN EMERGENCY, GO TO THE NEAREST EMERGENCY ROOM OR CALL 911 Home Treatment: Devices/Equipment: Special Services: Additional Instructions: Physician to provide the following pending test results: Follow up: In the event that this physician does not participate in your insurance network, please consult with your insurance company to find a nearby participating provider. Type Location Start Finish State US (FT) FT.ULTRASOUND 12/25/2024 10:00 AM 12/25/2024 11:00 AM Confirmed US (FT) FT.ULTRASOUND 01/01/2025 10:00 AM 01/01/2025 11:00 AM Confirmed US (FT) FT.ULTRASOUND 01/08/2025 10:00 AM 01/08/2025 11:00 AM Confirmed US (FT) FT.ULTRASOUND 01/15/2025 10:00 AM 01/15/2025 11:00 AM Confirmed Comment: I, INDU JORGENSEN, have received the attached patient education materials/instructions and have verbalized understanding. Patient Signature Date Clinican/Nurse Signature Date MEDICATION LIST Medications to Continue with No Changes Other Medications carbonyl iron (Iron Chews) 15 Milligram By Mouth every day. Last Dose: Next Dose: multivitamin, ( 19 ([place])) Oral. Last Dose: Next Dose: pantoprazole (Pantoprazole [address] Tab) 1 Tablets By Mouth. Last Dose: Next Dose: quetiapine (SEROquel 50 mg ER Tab) 2 Tablets By Mouth at bedtime. Last Dose: Next Dose: PATIENT EDUCATION INFORMATION Instructions: Medication Leaflets: You may receive a survey from Jonathon Carlson asking you to rate your care experience. Your feedback is important and will help us understand what we do well and how we can improve the quality of care we provide to you, your loved ones and our community. It???s an honor to serve you. Patient Portal You may access all of your results and other medical record information on our secure patient portal. If you are not signed up for this yet, please contact [email or web address] at [phone] to get signed up today. NATALIE Award Nomination The NATALIE (Diseases Attacking the Immune SYstem) Award is an international recognition program thathonors and celebrates the skillful, compassionate care nurses provide every day. Anyone who experiences or observes amazing care being provided by a nurse is encouraged to submit a nomination. To nominate your nurse, use your smart phone to scan the QR code below. Language Information Language assistance services are available as needed. Thank you for choosing [facility]S Medical CenterUS Biophysical Profile w/o N-Stron [id number] Biophysical Profile w/o N-StrExam Date/Time: 12/18/2024 10:41 EDT Reason for Exam: O09.812 Report IMPRESSION: BIOPHYSICAL PROFILE SCORE OF 8 OUT OF 8. EXAM: US Biophysical Profile w/o N-Str CLINICAL HISTORY: O09.812. Gestational Age by LMP: 32 weeks, 0 days 32w0d (weeks/days) COMPARISON: 12/11/2024 TECHNIQUE: Grayscale evaluation of the fetus was performed for biophysical profile purposes and does not constitute an anatomic survey. FINDINGS: There is a single intrauterine fetus in a cephalic position. There is a anterior placenta without evidence of placenta previa. Amniotic Fluid Index: 9.6 cm cardiac activity is measured at 126 bpm. Points were awarded for the following: * Breathin *Gross Body Movement: 2 * Tone: 2 *Amniotic Fluid Volume: 2 Biophysical Profile Sum Score: 8 Ordering Provider: Uirel MEADE FINAL REPORT Dictated: 12/19/2024 11:00 am Jade Payton DO Signed (Electronic Signature): 12/19/2024 11:00 am Signed by: Jade Payton DO Transcribed by: JURGEN Technologist: [facility]Pro[facility] w/ Auto Diffon [id number] Absolute0.1 E9/LNormal0.0-0.2FBethesda North HospitalComment on above:Performed By: #### [id number] #### [facility] [address], [place] [address]Xncotcvlj/100 WBC (Bld)0.5 %Normal0.0-2.0[facility] Rita'S Medical CenterComment on above:Performed By: #### [id number] #### [facility] [address], [place] [address]Pdi Absolute0.1 E9/LNormal0.0-0.5FBethesda North Hospital Comment on above:Performed By: #### [id number] #### [facility] [address], [place] [address]Eukfyvodcrw/100 WBC (Bld)0.5 %Normal0.0-8.0[facility] Rita'S Medical CenterComment on above:Performed By: #### [id number] #### [facility] [address], [place] [address]Tgqnzpsznhe distribution width (RBC) [Ratio]15.5 %High10.9-14.[address] Rita'S Medical CenterComment on above:Performed By: #### [id number] #### [facility] [address] [place] [address]Cfmjrmzskg (Bld) [Volume fraction]32.6 %Low34.0-46.0[facility] Rita'S Medical CenterComment on above:Performed By: #### [id number] #### [facility] [address], [place] [address]Rtnxbgmnyg (Bld) [Mass/Vol]11.2 g/dLLow12.0-16.0[facility] Rita'S Medical CenterComment on above:Performed By: #### [id number] #### [facility] [address] [place] [address]Bmtry Absolute1.9 E9/LNormal1.0-4.0[facility] Comment on above:Performed By: #### [id number] #### [facility] [address], [place] [address]Npkygtocgoz/100 WBC (Bld)15.6 %Dklbyz45.0-50.0[facility] Rita'S Medical CenterComment on above:Performed By: #### [id number] #### [facility] [address], [place] [address]EQY (RBC) [Entitic mass]31.0 ptMedkcs54.0-34.0[facility] Rita'S Medical CenterComment on above:Performed By: #### [id number] #### [facility] [address] [place] [address]NHDU (RBC) [Mass/Vol]34.4 g/xRLuphug32.4-36.0[facility] Rita'S Medical CenterComment on above:Performed By: #### [id number] #### [facility] [address] [place] [address]PNP (RBC) [Entitic vol]90.2 yZAgasuq42.0-100.0[facility] Rita'S Medical CenterComment on above:Performed By: #### [id number] #### [facility] [address], [place] [address]Genu Absolute0.5 E9/LNormal0.2-1.0[facility] Comment on above:Performed By: #### [id number] #### [facility] [address] [place] [address]Lzwbiiseu/100 WBC (Bld)4.4 %Normal4.0-14.0[facility] Rita'S Medical CenterComment on above:Performed By: #### [id number] #### [facility] [address] [place] [address]Xcotyf Absolute9.4 E9/LHigh2.0-7.5FBethesda North Hospital Comment on above:Performed By: #### [id number] #### [facility] [address] [place] [address]Iresvk Auto79.0 %High36.0-75.0[facility] Comment on above:Performed By: #### [id number] #### [facility] [address], [place] [address]Utusudlt020.0 E9/FLznnaq254.0-500.0[facility] Comment on above:Performed By: #### [id number] #### [facility] [address], [place] [address]Bsfzvnpl mean volume (Bld) [Entitic vol]7.2 fLNormal6.4-10.[address] Rita'S Medical CenterComment on above:Performed By: #### [id number] #### [facility] [address] [place] [address]JKN1.6 E12/LLow4.3-5.9[facility] Rita'S Medical CenterComment on above:Performed By: #### [id number] #### [facility] [address] [place] [address]GLI53.9 E9/LHigh4.0-11.0[facility] Rita'S Medical CenterComment on above:Performed By: #### [id number] #### [facility] [address] [place] [address]Hqeqohzdi Clinical Summaryon [id number] Clinical SummaryInpatient Clinical Summary [address] [address] Clinical Summary Person Information Name: INDU JORGENSEN [facility] Age: 29 Years : 1995 Sex: Female PCP: Yasmin WELCH DO Marital Status: Phone: [phone] Race: White Ethnicity: Non- or Language: Nauruan Visit Id: Visit Reason: NST Speciality: Acuity: Enc Type: Outpatient Med Service: Obstetrics Arrival: 12/18/2024 10:34:07 Discharge: 12/18/2024 11:47:23 Dispo Type: Home (Routine DC) Address: [address] [place] [address] [id number] Provider Notes: Diagnosis: Problems Active Smoker (07/03/2024) Esophagitis Abnormal CT of the abdomen Visceral hypersensitivity syndrome Stress-related physiological response affecting medical condition Miscarriage Seasonal allergic rhinitis Sciatica Prolactinoma Pain in pelvis (09/25/2022) Malignant tumor of cervix Prolactin level above reference range (05/28/2023) History of laparoscopy Heartburn Fatigue Gastritis (07/20/2023) Endometriosis (clinical) (03/25/2020) Disorder of pituitary gland Abnormal uterine bleeding. 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 Chronic rhinitis Chronic vaginitis (03/25/2020) Depressive disorder (03/25/2020) Weight loss Asthma Bipolar disorder Nausea and vomiting Asthma Scoliosis vocal cord dysfunction Smoking Status: Functional Status: Sensory Deficits: History of Falls: Mobility Assistance Prior to Admission: ADLs: Current Level of Assistance for Self-Care/Mobility: Cognitive Status: Allergies No Known Allergies Laboratory or Other Results This Visit (last charted value for your 12/18/2024 visit) No Laboratory or Other Results This Visit Measurements: Height: Weight: Blood Pressure: Not Valued / Not Valued BMI: Procedures No Procedures Performed or Documented Immunizations No Immunizations Documented This Visit Final Med List: carbonyl iron (Iron Chews) 15 Milligram By Mouth every day. multivitamin, ( 19 ([place])) Oral. pantoprazole (Pantoprazole [address] Tab) 1 Tablets By Mouth. quetiapine (SEROquel 50 mg ER Tab) 2 Tablets By Mouth at bedtime. Care Team Members: Attending Physician: Uriel MEADE DO Consulting Physician: Referring Physician: Follow up: Type Location Start Finish State [place] (FT) FT.ULTRASOUND 12/25/2024 10:00 AM 12/25/2024 11:00 AM Confirmed US (FT) FT.ULTRASOUND 01/01/2025 10:00 AM 01/01/2025 11:00 AM Confirmed US (FT) FT.ULTRASOUND 01/08/2025 10:00 AM 01/08/2025 11:00 AM Confirmed [place] (FT) FT.ULTRASOUND 01/15/2025 10:00 AM 01/15/2025 11:00 AM Confirmed Patient Education Information:[facility]In[facility] Patient Summaryon [id number] Patient SummaryInpatient Patient Summary [place] [id number] Patient Discharge Instructions PERSON INFORMATION Name: INDU JORGENSEN Date of : 1995 Current Date: 12/18/2024 11:47:34 PHYSICIANS Admitting Physician: Uriel MEADE DO Primary Care Physician: Yasmin WELCH DO PCP Phone Number: [phone] Comment: Discharge Diagnosis: Condition at Discharge: INDU JORGENSENN has been given the following list of follow-up instructions, prescriptions, and patient education materials: PATIENT FOLLOW-UP INFORMATION Diet: Activity: Wound Care Instructions: Remove Your Dressing IN: Days Call Your Doctor For: IF UNABLE TO CONTACT YOUR PHYSICIAN AND YOU FEEL IT IS AN EMERGENCY, GO TO THE NEAREST EMERGENCY ROOM OR CALL 911 Home Treatment: Devices/Equipment: Special Services: Additional Instructions: Physician to provide the following pending test results: Follow up: In the event that this physician does not participate in your insurance network, please consult with your insurance company to find a nearby participating provider. Type Location Start Finish State [place] (FT) FT.ULTRASOUND 12/25/2024 10:00 AM 12/25/2024 11:00 AM Confirmed US (FT) FT.ULTRASOUND 01/01/2025 10:00 AM 01/01/2025 11:00 AM Confirmed US (FT) FT.ULTRASOUND 01/08/2025 10:00 AM 01/08/2025 11:00 AM Confirmed US (FT) FT.ULTRASOUND 01/15/2025 10:00 AM 01/15/2025 11:00 AM Confirmed Comment: JAMEEL Nichole ERICA LYNN, have received the attached patient education materials/instructions and have verbalized understanding. Patient Signature Date Clinican/Nurse Signature Date MEDICATION LIST Medications to Continue with No Changes Other Medications carbonyl iron (Iron Chews) 15 Milligram By Mouth every day. Last Dose: Next Dose: multivitamin, ( 19 ([place])) Oral. Last Dose: Next Dose: pantoprazole (Pantoprazole [address] Tab) 1 Tablets By Mouth. Last Dose: Next Dose: quetiapine (SEROquel 50 mg ER Tab) 2 Tablets By Mouth at bedtime. Last Dose: Next Dose: PATIENT EDUCATION INFORMATION Instructions: Medication Leaflets: You may receive a survey from [employer] asking you to rate your care experience. Your feedback is important and will help us understand what we do well and how we can improve the quality of care we provide to you, your loved ones and our community. It???s an honor to serve you. Patient Portal You may access all of your results and other medical record information on our secure patient portal. If you are not signed up for this yet, please contact [email or web address] at [phone] to get signed up today. NATALIE Award Nomination The NATALIE (Diseases Attacking the Immune SYstem) Award is an international recognition program thathonors and celebrates the skillful, compassionate care nurses provide every day. Anyone who experiences or observes amazing care being provided by a nurse is encouraged to submit a nomination. To nominate your nurse, use your smart phone to scan the QR code below. Language Information Language assistance services are available as needed. Thank you for choosing [facility] NormalFisher Gautam Medical CenterUrinalysis macro (dipstick) panel (U)on [id number], UA NegativeNegative - 4(70) +++ mg/dLNOMS HealthcareBlood, UANegativeNegative - 50 Mick/mcLNOMS HealthcareClarity, UAClearNOMS HealthcareColor, UAAmberNOMS HealthcareGlucose, UATraceNegative - 2000(110) ++++ mg/dLNOMS Healthcare Interpretation and review of laboratory resultsAbnormalNOMS HealthcareKetones, UAPositiveNegative - 160(16) ++++ mg/dLNOMS HealthcareLeukocytes, UATrace Negative - 500+++ Campos/mcLNOMS HealthcareNitrite, UANegativeNegative - Positive NOMS HealthcarepH, UA6.55 - 9NOMS HealthcareProtein, UATraceNegative - 2000(20) ++++ mg/dLNOMS HealthcareSpec Grav, UA1.0201 - 1.03NOMS HealthcareUrobilinogen, UA2.00.2 - 12 mg/dLNOMS HealthcareNOMS HealthcareInpatient Clinical Summaryon [id number] Clinical SummaryInpatient Clinical Summary [address] [address] Clinical Summary Person Information Name: INDU JORGENSEN [facility] Age: 29 Years : 1995 Sex: Female PCP: Yasmin WELCH DO Marital Status: Phone: [phone] Race: White Ethnicity: Non- or Language: Nauruan Visit Id: Visit Reason: NST Speciality: Acuity: Enc Type: Outpatient Med Service: Obstetrics Arrival: 12/15/2024 07:30:22 Discharge: 12/15/2024 08:30:00 Dispo Type: Home (Routine DC) Address: [address] [place] [address] [id number] Provider Notes: Diagnosis: Problems Active Smoker (07/03/2024) Esophagitis Abnormal CT of the abdomen Visceral hypersensitivity syndrome Stress-related physiological response affecting medical condition Miscarriage Seasonal allergic rhinitis Sciatica Prolactinoma Pain in pelvis (09/25/2022) Malignant tumor of cervix Prolactin level above reference range (05/28/2023) History of laparoscopy Heartburn Fatigue Gastritis (07/20/2023) Endometriosis (clinical) (03/25/2020) Disorder of pituitary gland Abnormal uterine bleeding. 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 Chronic rhinitis Chronic vaginitis (03/25/2020) Depressive disorder (03/25/2020) Weight loss Asthma Bipolar disorder Nausea and vomiting Asthma Scoliosis vocal cord dysfunction Smoking Status: Functional Status: Sensory Deficits: History of Falls: Mobility Assistance Prior to Admission: ADLs: Current Level of Assistance for Self-Care/Mobility: Cognitive Status: Allergies No Known Allergies Laboratory or Other Results This Visit (last charted value for your 12/15/2024 visit) No Laboratory or Other Results This Visit Measurements: Height: Weight: Blood Pressure: Not Valued / Not Valued BMI: Procedures No Procedures Performed or Documented Immunizations No Immunizations Documented This Visit Final Med List: carbonyl iron (Iron Chews) 15 Milligram By Mouth every day. famotidine (famotidine 20 mg Tab) 1 Tablets By Mouth 2 times a day. Refills: 0. metoclopramide (Reglan 5 mg Tab) 1 Tablets By Mouth 4 times a day. Refills: 0. Misc Prescription (Boost/Ensure) 0 twice a day (before meals). 8oz BID x 2-4 weeks. Disp #24 (twenty-four). Refills: 0. multivitamin, ( 19 ([place])) Oral. naloxone (naloxone 4 mg/0.1 mL nasal spray) 4 Milligram Nasal Inhalation As Directed. for suspectedoverdose symptoms. Refills: 0. olanzapine (olanzapine 2.5 mg Tab) 1 Tablets By Mouth every 6 hours. omega-3 polyunsaturated fatty acids (Fish Oil) 500 Milligram By Mouth every day. ondansetron (Zofran 8 mg Tab) 1 Tablets By Mouth every 8 hours. ondansetron (Zofran ODT 4 mg Tab-Dis) 1 Tablets By Mouth every 6 hours. Refills: 0. oxycodone (oxyCODONE 5 mg Cap) 1 Capsules By Mouth every 12 hours as needed for pain. Refills: 0. pantoprazole (Protonix 40 mg Tab-DR) 1 Tablets By Mouth every day. Refills: 0. polyethylene glycol 3350 (MiraLax 3350 Oral Pwdr for Recon 249 gram) 17 Gram By Mouth every day. Refills: 0. quetiapine (SEROquel 50 mg ER Tab) 1 Tablets By Mouth 2 times a day. sucralfate (Carafate 1 g/10 mL Susp-Oral) 10 Milliliter By Mouth four times a day (before meals andat bedtime). Refills: 0. Care Team Members: Attending Physician: Uriel MEADE DO Consulting Physician: Referring Physician: Follow up: Type Location Start Finish State US (FT) FT.ULTRASOUND 12/18/2024 10:00 AM 12/18/2024 11:00 AM Confirmed US (FT) FT.ULTRASOUND 12/25/2024 10:00 AM 12/25/2024 11:00 AM Confirmed US (FT) FT.ULTRASOUND 01/01/2025 10:00 AM 01/01/2025 11:00 AM Confirmed US (FT) FT.ULTRASOUND 01/08/2025 10:00 AM 01/08/2025 11:00 AM Confirmed US (FT) FT.ULTRASOUND 01/15/2025 10:00 AM 01/15/2025 11:00 AM Confirmed Patient Education Information:[facility]In[facility] Patient Summaryon [id number] Patient SummaryInpatient Patient Summary [place] [id number] Patient Discharge Instructions PERSON INFORMATION Name: INDU JORGENSEN Date of : 1995 Current Date: 12/15/2024 08:36:10 PHYSICIANS Admitting Physician: Uriel MEADE DO Primary Care Physician: Yasmin WELCH DO PCP Phone Number: [phone] Comment: Discharge Diagnosis: Condition at Discharge: INDU JORGENSEN has been given the following list of follow-up instructions, prescriptions, and patient education materials: PATIENT FOLLOW-UP INFORMATION Diet: Activity: Wound Care Instructions: Remove Your Dressing IN: Days Call Your Doctor For: IF UNABLE TO CONTACT YOUR PHYSICIAN AND YOU FEEL IT IS AN EMERGENCY, GO TO THE NEAREST EMERGENCY ROOM OR CALL 911 Home Treatment: Devices/Equipment: Special Services: Additional Instructions: Physician to provide the following pending test results: Follow up: In the event that this physician does not participate in your insurance network, please consult with your insurance company to find a nearby participating provider. Type Location Start Finish State [place] (FT) FT.ULTRASOUND 12/18/2024 10:00 AM 12/18/2024 11:00 AM Confirmed US (FT) FT.ULTRASOUND 12/25/2024 10:00 AM 12/25/2024 11:00 AM Confirmed US (FT) FT.ULTRASOUND 01/01/2025 10:00 AM 01/01/2025 11:00 AM Confirmed US (FT) FT.ULTRASOUND 01/08/2025 10:00 AM 01/08/2025 11:00 AM Confirmed US (FT) FT.ULTRASOUND 01/15/2025 10:00 AM 01/15/2025 11:00 AM Confirmed Comment: JAMEEL Nichole ERICA LYNN, have received the attached patient education materials/instructions and have verbalized understanding. Patient Signature Date Clinican/Nurse Signature Date MEDICATION LIST Medications to Continue with No Changes Other Medications carbonyl iron (Iron Chews) 15 Milligram By Mouth every day. Last Dose: Next Dose: famotidine (famotidine 20 mg Tab) 1 Tablets By Mouth 2 times a day. Refills: 0. Last Dose: Next Dose: metoclopramide (Reglan 5 mg Tab) 1 Tablets By Mouth 4 times a day. Refills: 0. Last Dose: Next Dose: Misc Prescription (Boost/Ensure) 0 twice a day (before meals). 8oz BID x 2-4 weeks. Disp #24 (twenty-four). Refills: 0. Last Dose: Next Dose: multivitamin, ( 19 ([place])) Oral. Last Dose: Next Dose: naloxone (naloxone 4 mg/0.1 mL nasal spray) 4 Milligram Nasal Inhalation As Directed. for suspectedoverdose symptoms. Refills: 0. Last Dose: Next Dose: olanzapine (olanzapine 2.5 mg Tab) 1 Tablets By Mouth every 6 hours. Last Dose: Next Dose: omega-3 polyunsaturated fatty acids (Fish Oil) 500 Milligram By Mouth every day. Last Dose: Next Dose: ondansetron (Zofran 8 mg Tab) 1 Tablets By Mouth every 8 hours. Last Dose: Next Dose: ondansetron (Zofran ODT 4 mg Tab-Dis) 1 Tablets By Mouth every 6 hours. Refills: 0. Last Dose: Next Dose: oxycodone (oxyCODONE 5 mg Cap) 1 Capsules By Mouth every 12 hours as needed for pain. Refills: 0. Last Dose: Next Dose: pantoprazole (Protonix 40 mg Tab-DR) 1 Tablets By Mouth every day. Refills: 0. Last Dose: Next Dose: polyethylene glycol 3350 (MiraLax 3350 Oral Pwdr for Recon 249 gram) 17 Gram By Mouth every day. Refills: 0. Last Dose: Next Dose: quetiapine (SEROquel 50 mg ER Tab) 1 Tablets By Mouth 2 times a day. Last Dose: Next Dose: sucralfate (Carafate 1 g/10 mL Susp-Oral) 10 Milliliter By Mouth four times a day (before meals andat bedtime). Refills: 0. Last Dose: Next Dose: PATIENT EDUCATION INFORMATION Instructions: Medication Leaflets: You may receive a survey from [employer] asking you to rate your care experience. Your feedback is important and will help us understand what we do well and how we can improve the quality of care we provide to you, your loved ones and our community. It???s an honor to serve you. Patient Portal You may access all of your results and other medical record information on our secure patient portal. If you are not signed up for this yet, please contact [employer] at [phone] to get signed up today. NATALIE Award Nomination The NATALIE (Diseases A (more content not included)...[facility] HospitalInpatient Clinical Summaryon [id number] Clinical SummaryInpatient Clinical Summary [address] [address] Clinical Summary Person Information Name: INDU JORGENSEN [facility] Age: 29 Years : 1995 Sex: Female PCP: Yasmin WELCH DO Marital Status: Phone: [phone] Race: White Ethnicity: Non- or Language: Nauruan Visit Id: Visit Reason: nst Speciality: Acuity: Enc Type: Outpatient Med Service: Obstetrics Arrival: 12/11/2024 10:37:22 Discharge: 12/11/2024 11:10:00 Dispo Type: Home (Routine DC) Address: [address] [place] [address] [id number] Provider Notes: Diagnosis: Problems Active Smoker (07/03/2024) Esophagitis Abnormal CT of the abdomen Visceral hypersensitivity syndrome Stress-related physiological response affecting medical condition Miscarriage Seasonal allergic rhinitis Sciatica Prolactinoma Pain in pelvis (09/25/2022) Malignant tumor of cervix Prolactin level above reference range (05/28/2023) History of laparoscopy Heartburn Fatigue Gastritis (07/20/2023) Endometriosis (clinical) (03/25/2020) Disorder of pituitary gland Abnormal uterine bleeding. 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 Chronic rhinitis Chronic vaginitis (03/25/2020) Depressive disorder (03/25/2020) Weight loss Asthma Bipolar disorder Nausea and vomiting Asthma Scoliosis vocal cord dysfunction Smoking Status: Functional Status: Sensory Deficits: History of Falls: Mobility Assistance Prior to Admission: ADLs: Current Level of Assistance for Self-Care/Mobility: Cognitive Status: Allergies No Known Allergies Laboratory or Other Results This Visit (last charted value for your 12/11/2024 visit) No Laboratory or Other Results This Visit Measurements: Height: Weight: Blood Pressure: Not Valued / Not Valued BMI: Procedures No Procedures Performed or Documented Immunizations No Immunizations Documented This Visit Final Med List: carbonyl iron (Iron Chews) 15 Milligram By Mouth every day. famotidine (famotidine 20 mg Tab) 1 Tablets By Mouth 2 times a day. Refills: 0. metoclopramide (Reglan 5 mg Tab) 1 Tablets By Mouth 4 times a day. Refills: 0. Misc Prescription (Boost/Ensure) 0 twice a day (before meals). 8oz BID x 2-4 weeks. Disp #24 (twenty-four). Refills: 0. multivitamin, ( 19 ([place])) Oral. naloxone (naloxone 4 mg/0.1 mL nasal spray) 4 Milligram Nasal Inhalation As Directed. for suspectedoverdose symptoms. Refills: 0. olanzapine (olanzapine 2.5 mg Tab) 1 Tablets By Mouth every 6 hours. omega-3 polyunsaturated fatty acids (Fish Oil) 500 Milligram By Mouth every day. ondansetron (Zofran 8 mg Tab) 1 Tablets By Mouth every 8 hours. ondansetron (Zofran ODT 4 mg Tab-Dis) 1 Tablets By Mouth every 6 hours. Refills: 0. oxycodone (oxyCODONE 5 mg Cap) 1 Capsules By Mouth every 12 hours as needed for pain. Refills: 0. pantoprazole (Protonix 40 mg Tab-DR) 1 Tablets By Mouth every day. Refills: 0. polyethylene glycol 3350 (MiraLax 3350 Oral Pwdr for Recon 249 gram) 17 Gram By Mouth every day. Refills: 0. quetiapine (SEROquel 50 mg ER Tab) 1 Tablets By Mouth 2 times a day. sucralfate (Carafate 1 g/10 mL Susp-Oral) 10 Milliliter By Mouth four times a day (before meals andat bedtime). Refills: 0. Care Team Members: Attending Physician: Uriel MEADE DO Consulting Physician: Referring Physician: Follow up: Type Location Start Finish State US (FT) FT.ULTRASOUND 12/18/2024 10:00 AM 12/18/2024 11:00 AM Confirmed US (FT) FT.ULTRASOUND 12/25/2024 10:00 AM 12/25/2024 11:00 AM Confirmed US (FT) FT.ULTRASOUND 01/01/2025 10:00 AM 01/01/2025 11:00 AM Confirmed US (FT) FT.ULTRASOUND 01/08/2025 10:00 AM 01/08/2025 11:00 AM Confirmed US (FT) FT.ULTRASOUND 01/15/2025 10:00 AM 01/15/2025 11:00 AM Confirmed Patient Education Information:[facility] HospitalIn[facility] Patient Summaryon [id number] Patient SummaryInpatient Patient Summary [place] [id number] Patient Discharge Instructions PERSON INFORMATION Name: INDU JORGENSEN Date of : 1995 Current Date: 12/11/2024 11:16:48 PHYSICIANS Admitting Physician: Uriel MEADE DO Primary Care Physician: Yasmin WELCH DO PCP Phone Number: [phone] Comment: Discharge Diagnosis: Condition at Discharge: INDU JORGENSEN has been given the following list of follow-up instructions, prescriptions, and patient education materials: PATIENT FOLLOW-UP INFORMATION Diet: Activity: Wound Care Instructions: Remove Your Dressing IN: Days Call Your Doctor For: IF UNABLE TO CONTACT YOUR PHYSICIAN AND YOU FEEL IT IS AN EMERGENCY, GO TO THE NEAREST EMERGENCY ROOM OR CALL 911 Home Treatment: Devices/Equipment: Special Services: Additional Instructions: Physician to provide the following pending test results: Follow up: In the event that this physician does not participate in your insurance network, please consult with your insurance company to find a nearby participating provider. Type Location Start [facility] US (FT) FT.[email or web address] 12/18/2024 10:00 AM 12/18/2024 11:00 AM Confirmed US (FT) FT.ULTRASOUND 12/25/2024 10:00 AM 12/25/2024 11:00 AM Confirmed US (FT) FT.ULTRASOUND 01/01/2025 10:00 AM 01/01/2025 11:00 AM Confirmed US (FT) FT.ULTRASOUND 01/08/2025 10:00 AM 01/08/2025 11:00 AM Confirmed US (FT) FT.ULTRASOUND 01/15/2025 10:00 AM 01/15/2025 11:00 AM Confirmed Comment: JAMEEL Nichole ERICA LYNN, have received the attached patient education materials/instructions and have verbalized understanding. Patient Signature Date Clinican/Nurse Signature Date MEDICATION LIST Medications to Continue with No Changes Other Medications carbonyl iron (Iron Chews) 15 Milligram By Mouth every day. Last Dose: Next Dose: famotidine (famotidine 20 mg Tab) 1 Tablets By Mouth 2 times a day. Refills: 0. Last Dose: Next Dose: metoclopramide (Reglan 5 mg Tab) 1 Tablets By Mouth 4 times a day. Refills: 0. Last Dose: Next Dose: Misc Prescription (Boost/Ensure) 0 twice a day (before meals). 8oz BID x 2-4 weeks. Disp #24 (twenty-four). Refills: 0. Last Dose: Next Dose: multivitamin, ( 19 ([place])) Oral. Last Dose: Next Dose: naloxone (naloxone 4 mg/0.1 mL nasal spray) 4 Milligram Nasal Inhalation As Directed. for suspectedoverdose symptoms. Refills: 0. Last Dose: Next Dose: olanzapine (olanzapine 2.5 mg Tab) 1 Tablets By Mouth every 6 hours. Last Dose: Next Dose: omega-3 polyunsaturated fatty acids (Fish Oil) 500 Milligram By Mouth every day. Last Dose: Next Dose: ondansetron (Zofran 8 mg Tab) 1 Tablets By Mouth every 8 hours. Last Dose: Next Dose: ondansetron (Zofran ODT 4 mg Tab-Dis) 1 Tablets By Mouth every 6 hours. Refills: 0. Last Dose: Next Dose: oxycodone (oxyCODONE 5 mg Cap) 1 Capsules By Mouth every 12 hours as needed for pain. Refills: 0. Last Dose: Next Dose: pantoprazole (Protonix 40 mg Tab-DR) 1 Tablets By Mouth every day. Refills: 0. Last Dose: Next Dose: polyethylene glycol 3350 (MiraLax 3350 Oral Pwdr for Recon 249 gram) 17 Gram By Mouth every day. Refills: 0. Last Dose: Next Dose: quetiapine (SEROquel 50 mg ER Tab) 1 Tablets By Mouth 2 times a day. Last Dose: Next Dose: sucralfate (Carafate 1 g/10 mL Susp-Oral) 10 Milliliter By Mouth four times a day (before meals andat bedtime). Refills: 0. Last Dose: Next Dose: PATIENT EDUCATION INFORMATION Instructions: Medication Leaflets: You may receive a survey from [employer] asking you to rate your care experience. Your feedback is important and will help us understand what we do well and how we can improve the quality of care we provide to you, your loved ones and our community. It???s an honor to serve you. Patient Portal You may access all of your results and other medical record information on our secure patient portal. If you are not signed up for this yet, please contact [employer] at [phone] to get signed up today. NATALIE Award Nomination The NATALIE (Diseases At (more content not included)...[facility] w/ Non-Stron [id number] Biophysical Profile w/ Non-StrExam Date/Time: 12/11/2024 10:55 EDT Reason for Exam: O09.812 Report IMPRESSION: BIOPHYSICAL PROFILE SCORE OF 8 OUT OF 8. EXAM: US Biophysical Profile w/o N-Str CLINICAL HISTORY: O09.812 Gestational Age by LMP: 31 weeks, 0 days by dates. Estimated date of delivery by dates May 08, 2024. TECHNIQUE: Grayscale evaluation of the fetus was performed for biophysical profile purposes and does not constitute an anatomic survey. FINDINGS: There is a single intrauterine fetus in a vertex position. There is a anterior placenta without evidence of placenta previa. Amniotic Fluid Index: 12.5 cm cardiac activity is measured at 152 bpm. Points were awarded for the following: * Breathin *Gross Body Movement: 2 * Tone: 2 *Amniotic Fluid Volume: 2 Biophysical Profile Sum Score: 8 Ordering Provider: Uriel MEADE FINAL REPORT Dictated: 12/11/2024 2:35 pm Willi Barros MD Signed (Electronic Signature): 12/11/2024 2:35 pm Signed by: Willi Barros MD Transcribed by: JURGEN Technologist: [facility]eraMer[facility] Health St[facility]'S Medical CenterInpatient Clinical Summaryon [id number] Clinical SummaryInpatient Clinical Summary [place] [id number] Clinical Summary Person Information Name: INDU JORGENSEN [facility] Age: 29 Years : 1995 Sex: Female PCP: Yasmin WELCH DO Marital Status: Phone: [phone] Race: White Ethnicity: Non- or Language: Nauruan Visit Id: Visit Reason: NST Speciality: Acuity: Enc Type: Outpatient Med Service: Obstetrics Arrival: 12/08/2024 07:19:54 Discharge: 12/08/2024 08:07:00 Dispo Type: Home (Routine DC) Address: [facility] [id number] Provider Notes: Diagnosis: Problems Active Smoker (07/03/2024) Esophagitis Abnormal CT of the abdomen Visceral hypersensitivity syndrome Stress-related physiological response affecting medical condition Miscarriage Seasonal allergic rhinitis Sciatica Prolactinoma Pain in pelvis (09/25/2022) Malignant tumor of cervix Prolactin level above reference range (05/28/2023) History of laparoscopy Heartburn Fatigue Gastritis (07/20/2023) Endometriosis (clinical) (03/25/2020) Disorder of pituitary gland Abnormal uterine bleeding. 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 Chronic rhinitis Chronic vaginitis (03/25/2020) Depressive disorder (03/25/2020) Weight loss Asthma Bipolar disorder Nausea and vomiting Asthma Scoliosis vocal cord dysfunction Smoking Status: Functional Status: Sensory Deficits: History of Falls: Mobility Assistance Prior to Admission: ADLs: Current Level of Assistance for Self-Care/Mobility: Cognitive Status: Allergies No Known Allergies Laboratory or Other Results This Visit (last charted value for your 12/08/2024 visit) No Laboratory or Other Results This Visit Measurements: Height: 167 cm Weight: 59 kg Blood Pressure: 115 mmHg / 63 mmHg BMI: 21.16 kg/m2 Procedures No Procedures Performed or Documented Immunizations No Immunizations Documented This Visit Final Med List: carbonyl iron (Iron Chews) 15 Milligram By Mouth every day. famotidine (famotidine 20 mg Tab) 1 Tablets By Mouth 2 times a day. Refills: 0. metoclopramide (Reglan 5 mg Tab) 1 Tablets By Mouth 4 times a day. Refills: 0. Misc Prescription (Boost/Ensure) 0 twice a day (before meals). 8oz BID x 2-4 weeks. Disp #24 (twenty-four). Refills: 0. multivitamin, ( 19 ([place])) Oral. naloxone (naloxone 4 mg/0.1 mL nasal spray) 4 Milligram Nasal Inhalation As Directed. for suspectedoverdose symptoms. Refills: 0. olanzapine (olanzapine 2.5 mg Tab) 1 Tablets By Mouth every 6 hours. omega-3 polyunsaturated fatty acids (Fish Oil) 500 Milligram By Mouth every day. ondansetron (Zofran 8 mg Tab) 1 Tablets By Mouth every 8 hours. ondansetron (Zofran ODT 4 mg Tab-Dis) 1 Tablets By Mouth every 6 hours. Refills: 0. oxycodone (oxyCODONE 5 mg Cap) 1 Capsules By Mouth every 12 hours as needed for pain. Refills: 0. pantoprazole (Protonix 40 mg Tab-DR) 1 Tablets By Mouth every day. Refills: 0. polyethylene glycol 3350 (MiraLax 3350 Oral Pwdr for Recon 249 gram) 17 Gram By Mouth every day. Refills: 0. quetiapine (SEROquel 50 mg ER Tab) 1 Tablets By Mouth 2 times a day. sucralfate (Carafate 1 g/10 mL Susp-Oral) 10 Milliliter By Mouth four times a day (before meals andat bedtime). Refills: 0. Care Team Members: Attending Physician: Saundra Verdugo MD Consulting Physician: Referring Physician: Follow up: With: Address: When: [facility], [address] [place] [address] , [place] [address] [facility] (1) In 8 days 12/16/2024 Comments: Call for any problems. Type Location Start [place] US (FT) FT.[email or web address] 12/11/2024 10:00 AM 12/11/2024 11:00 AM Confirmed US (FT) FT.ULTRASOUND 12/18/2024 10:00 AM 12/18/2024 11:00 AM Confirmed US (FT) FT.ULTRASOUND 12/25/2024 10:00 AM 12/25/2024 11:00 AM Confirmed US (FT) FT.ULTRASOUND 01/01/2025 10:00 AM 01/01/2025 11:00 AM Confirmed US (FT) FT.ULTRASOUND 01/08/2025 10:00 AM 01/08/2025 11:00 AM Confirmed US (FT) FT.ULTRASOUND 01/15/2025 10:00 AM 01/15/2025 11:00 AM Confirmed Patient Education Information:[facility] HospitalIn[facility] Patient Summaryon [id number] Patient SummaryInpatient Patient Summary [address] [address] Patient Discharge Instructions PERSON INFORMATION Name: INDU JORGENSEN Date of : 1995 Current Date: 12/08/2024 08:24:56 PHYSICIANS Admitting Physician: Saundra Verdugo MD Primary Care Physician: Yasmin WELCH DO PCP Phone Number: [phone] Comment: Discharge Diagnosis: Condition at Discharge: INDU JORGENSEN has been given the following list of follow-up instructions, prescriptions, and patient education materials: PATIENT FOLLOW-UP INFORMATION Diet: Activity: Wound Care Instructions: Remove Your Dressing IN: Days Call Your Doctor For: IF UNABLE TO CONTACT YOUR PHYSICIAN AND YOU FEEL IT IS AN EMERGENCY, GO TO THE NEAREST EMERGENCY ROOM OR CALL 911 Home Treatment: Devices/Equipment: Special Services: Additional Instructions: Physician to provide the following pending test results: Follow up: With: Address: When: [facility], [address] [place] [address] [place] [address] Business [employer] In 8 days 12/16/2024 Comments: Call for any problems. In the event that this physician does not participate in your insurance network, please consult with your insurance company to find a nearby participating provider. Type Location Start [place] [place] US (FT) FT.[email or web address] 12/11/2024 10:00 AM 12/11/2024 11:00 AM Confirmed US (FT) FT.ULTRASOUND 12/18/2024 10:00 AM 12/18/2024 11:00 AM Confirmed US (FT) FT.ULTRASOUND 12/25/2024 10:00 AM 12/25/2024 11:00 AM Confirmed US (FT) FT.ULTRASOUND 01/01/2025 10:00 AM 01/01/2025 11:00 AM Confirmed US (FT) FT.ULTRASOUND 01/08/2025 10:00 AM 01/08/2025 11:00 AM Confirmed US (FT) FT.ULTRASOUND 01/15/2025 10:00 AM 01/15/2025 11:00 AM Confirmed Comment: JAMEEL Nichole ERICA LYNN, have received the attached patient education materials/instructions and have verbalized understanding. Patient Signature Date Clinican/Nurse Signature Date MEDICATION LIST Medications to Continue with No Changes Other Medications carbonyl iron (Iron Chews) 15 Milligram By Mouth every day. Last Dose: Next Dose: famotidine (famotidine 20 mg Tab) 1 Tablets By Mouth 2 times a day. Refills: 0. Last Dose: Next Dose: metoclopramide (Reglan 5 mg Tab) 1 Tablets By Mouth 4 times a day. Refills: 0. Last Dose: Next Dose: Misc Prescription (Boost/Ensure) 0 twice a day (before meals). 8oz BID x 2-4 weeks. Disp #24 (twenty-four). Refills: 0. Last Dose: Next Dose: multivitamin, ( 19 ([place])) Oral. Last Dose: Next Dose: naloxone (naloxone 4 mg/0.1 mL nasal spray) 4 Milligram Nasal Inhalation As Directed. for suspectedoverdose symptoms. Refills: 0. Last Dose: Next Dose: olanzapine (olanzapine 2.5 mg Tab) 1 Tablets By Mouth every 6 hours. Last Dose: Next Dose: omega-3 polyunsaturated fatty acids (Fish Oil) 500 Milligram By Mouth every day. Last Dose: Next Dose: ondansetron (Zofran 8 mg Tab) 1 Tablets By Mouth every 8 hours. Last Dose: Next Dose: ondansetron (Zofran ODT 4 mg Tab-Dis) 1 Tablets By Mouth every 6 hours. Refills: 0. Last Dose: Next Dose: oxycodone (oxyCODONE 5 mg Cap) 1 Capsules By Mouth every 12 hours as needed for pain. Refills: 0. Last Dose: Next Dose: pantoprazole (Protonix 40 mg Tab-DR) 1 Tablets By Mouth every day. Refills: 0. Last Dose: Next Dose: polyethylene glycol 3350 (MiraLax 3350 Oral Pwdr for Recon 249 gram) 17 Gram By Mouth every day. Refills: 0. Last Dose: Next Dose: quetiapine (SEROquel 50 mg ER Tab) 1 Tablets By Mouth 2 times a day. Last Dose: Next Dose: sucralfate (Carafate 1 g/10 mL Susp-Oral) 10 Milliliter By Mouth four times a day (before meals andat bedtime). Refills: 0. Last Dose: Next Dose: PATIENT EDUCATION INFORMATION Instructions: Medication Leaflets: You may receive a survey from [employer] asking you to rate your care experience. Your feedback is important and will help us understand what we do well and how we can improve the quality of care we provide to you, your loved ones and our community. It???s an honor to serve you. Patient Portal You may access all of your results a (more content not included)...[facility] HospitalInpatient Clinical Summaryon [id number] Clinical SummaryInpatient Clinical Summary [place] [id number] Clinical Summary Person Information Name: INDU JORGENSEN [facility] Age: 29 Years : 1995 Sex: Female PCP: Yasmin WELCH DO Marital Status: Phone: [phone] Race: White Ethnicity: Non- or Language: Nauruan Visit Id: Visit Reason: NST Speciality: Acuity: Enc Type: Outpatient Med Service: Obstetrics Arrival: 12/04/2024 13:31:56 Discharge: 12/04/2024 14:20:00 Dispo Type: Home (Routine DC) Address: [address] [place] [id number] Provider Notes: Diagnosis: Problems Active Smoker (07/03/2024) Esophagitis Abnormal CT of the abdomen Visceral hypersensitivity syndrome Stress-related physiological response affecting medical condition Miscarriage Seasonal allergic rhinitis Sciatica Prolactinoma Pain in pelvis (09/25/2022) Malignant tumor of cervix Prolactin level above reference range (05/28/2023) History of laparoscopy Heartburn Fatigue Gastritis (07/20/2023) Endometriosis (clinical) (03/25/2020) Disorder of pituitary gland Abnormal uterine bleeding. 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 Chronic rhinitis Chronic vaginitis (03/25/2020) Depressive disorder (03/25/2020) Weight loss Asthma Bipolar disorder Nausea and vomiting Asthma Scoliosis vocal cord dysfunction Smoking Status: Functional Status: Sensory Deficits: History of Falls: Mobility Assistance Prior to Admission: ADLs: Current Level of Assistance for Self-Care/Mobility: Cognitive Status: Allergies No Known Allergies Laboratory or Other Results This Visit (last charted value for your 12/04/2024 visit) No Laboratory or Other Results This Visit Measurements: Height: Weight: Blood Pressure: Not Valued / Not Valued BMI: Procedures No Procedures Performed or Documented Immunizations No Immunizations Documented This Visit Final Med List: famotidine (famotidine 20 mg Tab) 1 Tablets By Mouth 2 times a day. Refills: 0. metoclopramide (Reglan 5 mg Tab) 1 Tablets By Mouth 4 times a day. Refills: 0. Misc Prescription (Boost/Ensure) 0 twice a day (before meals). 8oz BID x 2-4 weeks. Disp #24 (twenty-four). Refills: 0. multivitamin, ( 19 ([place])) Oral. naloxone (naloxone 4 mg/0.1 mL nasal spray) 4 Milligram Nasal Inhalation As Directed. for suspectedoverdose symptoms. Refills: 0. olanzapine (olanzapine 2.5 mg Tab) 1 Tablets By Mouth every 6 hours. omega-3 polyunsaturated fatty acids (Fish Oil) 500 Milligram By Mouth every day. ondansetron (Zofran 8 mg Tab) 1 Tablets By Mouth every 8 hours. ondansetron (Zofran ODT 4 mg Tab-Dis) 1 Tablets By Mouth every 6 hours. Refills: 0. oxycodone (oxyCODONE 5 mg Cap) 1 Capsules By Mouth every 12 hours as needed for pain. Refills: 0. pantoprazole (Protonix 40 mg Tab-DR) 1 Tablets By Mouth every day. Refills: 0. polyethylene glycol 3350 (MiraLax 3350 Oral Pwdr for Recon 249 gram) 17 Gram By Mouth every day. Refills: 0. quetiapine (SEROquel 50 mg ER Tab) 1 Tablets By Mouth 2 times a day. sucralfate (Carafate 1 g/10 mL Susp-Oral) 10 Milliliter By Mouth four times a day (before meals andat bedtime). Refills: 0. Care Team Members: Attending Physician: Saundra Verdugo MD Consulting Physician: Referring Physician: Follow up: Type Location Start [place] [place] US (FT) FT.[email or web address] 12/11/2024 10:00 AM 12/11/2024 11:00 AM Confirmed US (FT) FT.ULTRASOUND 12/18/2024 10:00 AM 12/18/2024 11:00 AM Confirmed US (FT) FT.ULTRASOUND 12/25/2024 10:00 AM 12/25/2024 11:00 AM Confirmed US (FT) FT.ULTRASOUND 01/01/2025 10:00 AM 01/01/2025 11:00 AM Confirmed US (FT) FT.ULTRASOUND 01/08/2025 10:00 AM 01/08/2025 11:00 AM Confirmed US (FT) FT.ULTRASOUND 01/15/2025 10:00 AM 01/15/2025 11:00 AM Confirmed Patient Education Information:[facility] HospitalInpatient Patient Summaryon [id number] Patient SummaryInpatient Patient Summary [place] [id number] Patient Discharge Instructions PERSON INFORMATION Name: INDU JORGENSEN Date of : 1995 Current Date: 12/04/2024 14:46:17 PHYSICIANS Admitting Physician: Saundra Verdugo MD Primary Care Physician: Yasmin WELCH DO PCP Phone Number: [phone] Comment: Discharge Diagnosis: Condition at Discharge: Stable INDU JORGENSEN has been given the following list of follow-up instructions, prescriptions, and patient education materials: PATIENT FOLLOW-UP INFORMATION Diet: Activity: Wound Care Instructions: Remove Your Dressing IN: Days Call Your Doctor For: IF UNABLE TO CONTACT YOUR PHYSICIAN AND YOU FEEL IT IS AN EMERGENCY, GO TO THE NEAREST EMERGENCY ROOM OR CALL 911 Home Treatment: Devices/Equipment: Special Services: Additional Instructions: Physician to provide the following pending test results: None Follow up: In the event that this physician does not participate in your insurance network, please consult with your insurance company to find a nearby participating provider. Type Location Start [facility] US (FT) FT.ULTRASOUND 12/11/2024 10:00 AM 12/11/2024 11:00 AM Confirmed US (FT) FT.ULTRASOUND 12/18/2024 10:00 AM 12/18/2024 11:00 AM Confirmed US (FT) FT.ULTRASOUND 12/25/2024 10:00 AM 12/25/2024 11:00 AM Confirmed US (FT) FT.ULTRASOUND 01/01/2025 10:00 AM 01/01/2025 11:00 AM Confirmed US (FT) FT.ULTRASOUND 01/08/2025 10:00 AM 01/08/2025 11:00 AM Confirmed US (FT) FT.ULTRASOUND 01/15/2025 10:00 AM 01/15/2025 11:00 AM Confirmed Comment: JAMEEL Nichole ERICA LYNN, have received the attached patient education materials/instructions and have verbalized understanding. Patient Signature Date Clinican/Nurse Signature Date MEDICATION LIST Medications to Continue with No Changes Other Medications famotidine (famotidine 20 mg Tab) 1 Tablets By Mouth 2 times a day. Refills: 0. Last Dose: Next Dose: metoclopramide (Reglan 5 mg Tab) 1 Tablets By Mouth 4 times a day. Refills: 0. Last Dose: Next Dose: Misc Prescription (Boost/Ensure) 0 twice a day (before meals). 8oz BID x 2-4 weeks. Disp #24 (twenty-four). Refills: 0. Last Dose: Next Dose: multivitamin, ( 19 ([place])) Oral. Last Dose: Next Dose: naloxone (naloxone 4 mg/0.1 mL nasal spray) 4 Milligram Nasal Inhalation As Directed. for suspectedoverdose symptoms. Refills: 0. Last Dose: Next Dose: olanzapine (olanzapine 2.5 mg Tab) 1 Tablets By Mouth every 6 hours. Last Dose: Next Dose: omega-3 polyunsaturated fatty acids (Fish Oil) 500 Milligram By Mouth every day. Last Dose: Next Dose: ondansetron (Zofran 8 mg Tab) 1 Tablets By Mouth every 8 hours. Last Dose: Next Dose: ondansetron (Zofran ODT 4 mg Tab-Dis) 1 Tablets By Mouth every 6 hours. Refills: 0. Last Dose: Next Dose: oxycodone (oxyCODONE 5 mg Cap) 1 Capsules By Mouth every 12 hours as needed for pain. Refills: 0. Last Dose: Next Dose: pantoprazole (Protonix 40 mg Tab-DR) 1 Tablets By Mouth every day. Refills: 0. Last Dose: Next Dose: polyethylene glycol 3350 (MiraLax 3350 Oral Pwdr for Recon 249 gram) 17 Gram By Mouth every day. Refills: 0. Last Dose: Next Dose: quetiapine (SEROquel 50 mg ER Tab) 1 Tablets By Mouth 2 times a day. Last Dose: Next Dose: sucralfate (Carafate 1 g/10 mL Susp-Oral) 10 Milliliter By Mouth four times a day (before meals andat bedtime). Refills: 0. Last Dose: Next Dose: PATIENT EDUCATION INFORMATION Instructions: Medication Leaflets: You may receive a survey from [employer] asking you to rate your care experience. Your feedback is important and will help us understand what we do well and how we can improve the quality of care we provide to you, your loved ones and our community. It???s an honor to serve you. Patient Portal You may access all of your results and other medical record information on our secure patient portal. If you are not signed up for this yet, please contact [email or web address] at [phone] to get signed up today. NATALIE Award Nomination The NATALIE (Diseases Attacking the Immune SYstem) Award (more content not included)...[facility] Hospital[facility] Bi[facility] Profile w/ Non-Stron [id number] Biophysical Profile w/ Non-StrExam Date/Time: 12/04/2024 13:34 EDT Reason for Exam: O09.812 Report IMPRESSION: BIOPHYSICAL PROFILE SCORE OF 8 OUT OF 8. DATE: 12/04/2024 12:59 PM EXAM: US Biophysical Profile w/ N-Str CLINICAL HISTORY: O09.812 Technologist Comments: BPP, high risk. Prior us 11-27-24 Gestational Age by LMP: 30 weeks, 0 days 30w0d (weeks/days) COMPARISON: 11/27/2024. TECHNIQUE: Grayscale evaluation of the fetus was performed for biophysical profile purposes and does not constitute an anatomic survey. FINDINGS: There is a single intrauterine fetus in a cephalic position. There is a grade 2-3 anterior placenta without evidence of placenta previa. Amniotic Fluid Index: 10.8 cm cardiac activity is measured at 118 bpm. Points were awarded for the following: * Breathin *Gross Body Movement: 2 * Tone: 2 *Amniotic Fluid Volume: 2 Biophysical Profile Sum Score: 8 Please see separate nonstress test results. Ordering Provider: Uriel MEADE FINAL REPORT Dictated: 12/04/2024 3:01 pm Arun Bhatia MD Signed (Electronic Signature): 12/04/2024 3:01 pm Signed by: Arun Bhatia MD Transcribed by: JURGEN Technologist: ArlineSumma Health Wadsworth - Rittman Medical CenterUrinalysis macro (dipstick) panel (U)on [id number], UANegativeNegative - 4(70) +++ mg/dLNOMS HealthcareBlood, UANegativeNegative - 50 Mick/mcLNOMS Healthcare Clarity, UAClearNOMS HealthcareColor, UAYellowNOMS HealthcareGlucose, UANegative Negative - 2000(110) ++++ mg/dLNOMS HealthcareInterpretation and review of laboratory resultsAbnormalNOMS HealthcareKetones, UAPositiveNegative - 160(16) ++++ mg/dLNOMS HealthcareLeukocytes, UA1+Negative - 500+++ Campos/mcLNOMS HealthcareNitrite, UANegativeNegative - PositiveNOMS HealthcarepH, UA6.55 - 9 NOMS HealthcareProtein, UA1+Negative - 1999(20) ++++ mg/dLNOMS HealthcareSpec Grav, UA1.0151 - 1.03NOMS HealthcareUrobilinogen, UA1.00.2 - 12 mg/dLNOMS HealthcareNOMS HealthcareInpatient Clinical Summaryon [id number] Clinical SummaryInpatient Clinical Summary [address] [address] Clinical Summary Person Information Name: INDU JORGENSEN [facility] Age: 29 Years : 1995 Sex: Female PCP: Yasmin WELCH DO Marital Status: Phone: [phone] Race: White Ethnicity: Non- or Language: Nauruan Visit Id: Visit Reason: NST Speciality: Acuity: Enc Type: Outpatient Med Service: Obstetrics Arrival: 12/01/2024 07:29:12 Discharge: 12/01/2024 08:18:00 Dispo Type: Home (Routine DC) Address: [address] [place] [id number] Provider Notes: Diagnosis: Problems Active Smoker (07/03/2024) Esophagitis Abnormal CT of the abdomen Visceral hypersensitivity syndrome Stress-related physiological response affecting medical condition Miscarriage Seasonal allergic rhinitis Sciatica Prolactinoma Pain in pelvis (09/25/2022) Malignant tumor of cervix Prolactin level above reference range (05/28/2023) History of laparoscopy Heartburn Fatigue Gastritis (07/20/2023) Endometriosis (clinical) (03/25/2020) Disorder of pituitary gland Abnormal uterine bleeding. 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 Chronic rhinitis Chronic vaginitis (03/25/2020) Depressive disorder (03/25/2020) Weight loss Asthma Bipolar disorder Nausea and vomiting Asthma Scoliosis vocal cord dysfunction Smoking Status: Functional Status: Sensory Deficits: History of Falls: Mobility Assistance Prior to Admission: ADLs: Current Level of Assistance for Self-Care/Mobility: Cognitive Status: Allergies No Known Allergies Laboratory or Other Results This Visit (last charted value for your 12/01/2024 visit) No Laboratory or Other Results This Visit Measurements: Height: Weight: Blood Pressure: 117 mmHg / 71 mmHg BMI: Procedures No Procedures Performed or Documented Immunizations No Immunizations Documented This Visit Final Med List: famotidine (famotidine 20 mg Tab) 1 Tablets By Mouth 2 times a day. Refills: 0. metoclopramide (Reglan 5 mg Tab) 1 Tablets By Mouth 4 times a day. Refills: 0. Misc Prescription (Boost/Ensure) 0 twice a day (before meals). 8oz BID x 2-4 weeks. Disp #24 (twenty-four). Refills: 0. multivitamin, ( 19 ([place])) Oral. naloxone (naloxone 4 mg/0.1 mL nasal spray) 4 Milligram Nasal Inhalation As Directed. for suspectedoverdose symptoms. Refills: 0. olanzapine (olanzapine 2.5 mg Tab) 1 Tablets By Mouth every 6 hours. omega-3 polyunsaturated fatty acids (Fish Oil) 500 Milligram By Mouth every day. ondansetron (Zofran 8 mg Tab) 1 Tablets By Mouth every 8 hours. ondansetron (Zofran ODT 4 mg Tab-Dis) 1 Tablets By Mouth every 6 hours. Refills: 0. oxycodone (oxyCODONE 5 mg Cap) 1 Capsules By Mouth every 12 hours as needed for pain. Refills: 0. pantoprazole (Protonix 40 mg Tab-DR) 1 Tablets By Mouth every day. Refills: 0. polyethylene glycol 3350 (MiraLax 3350 Oral Pwdr for Recon 249 gram) 17 Gram By Mouth every day. Refills: 0. quetiapine (SEROquel 50 mg ER Tab) 1 Tablets By Mouth 2 times a day. sucralfate (Carafate 1 g/10 mL Susp-Oral) 10 Milliliter By Mouth four times a day (before meals andat bedtime). Refills: 0. Care Team Members: Attending Physician: Uriel MEADE DO Consulting Physician: Referring Physician: Follow up: Type Location Start Finish State US (FT) FT.[email or web address] 12/04/2024 1:00 PM 12/04/2024 2:00 PM Confirmed US (FT) FT.ULTRASOUND 12/11/2024 10:00 AM 12/11/2024 11:00 AM Confirmed US (FT) FT.ULTRASOUND 12/18/2024 10:00 AM 12/18/2024 11:00 AM Confirmed US (FT) FT.ULTRASOUND 12/25/2024 10:00 AM 12/25/2024 11:00 AM Confirmed US (FT) FT.ULTRASOUND 01/01/2025 10:00 AM 01/01/2025 11:00 AM Confirmed US (FT) FT.ULTRASOUND 01/08/2025 10:00 AM 01/08/2025 11:00 AM Confirmed US (FT) FT.ULTRASOUND 01/15/2025 10:00 AM 01/15/2025 11:00 AM Confirmed [facility] Information[facility] [id number] Patient SummaryInpatient Patient Summary [place] [address] Patient Discharge Instructions PERSON INFORMATION Name: INDU JORGENSEN Date of : 1995 Current Date: 12/01/2024 09:33:41 PHYSICIANS Admitting Physician: Uriel MEADE DO Primary Care Physician: Yasmin WELCH DO PCP Phone Number: [phone] Comment: Discharge Diagnosis: Condition at Discharge: INDU JORGENSEN has been given the following list of follow-up instructions, prescriptions, and patient education materials: PATIENT FOLLOW-UP INFORMATION Diet: Activity: Wound Care Instructions: Remove Your Dressing IN: Days Call Your Doctor For: IF UNABLE TO CONTACT YOUR PHYSICIAN AND YOU FEEL IT IS AN EMERGENCY, GO TO THE NEAREST EMERGENCY ROOM OR CALL 911 Home Treatment: Devices/Equipment: Special Services: Additional Instructions: Physician to provide the following pending test results: Follow up: In the event that this physician does not participate in your insurance network, please consult with your insurance company to find a nearby participating provider. Type Location Start [facility] US (FT) FT.ULTRASOUND 12/04/2024 1:00 PM 12/04/2024 2:00 PM Confirmed [place] (FT) FT.ULTRASOUND 12/11/2024 10:00 AM 12/11/2024 11:00 AM Confirmed US (FT) FT.ULTRASOUND 12/18/2024 10:00 AM 12/18/2024 11:00 AM Confirmed US (FT) FT.ULTRASOUND 12/25/2024 10:00 AM 12/25/2024 11:00 AM Confirmed US (FT) FT.ULTRASOUND 01/01/2025 10:00 AM 01/01/2025 11:00 AM Confirmed US (FT) FT.ULTRASOUND 01/08/2025 10:00 AM 01/08/2025 11:00 AM Confirmed US (FT) FT.ULTRASOUND 01/15/2025 10:00 AM 01/15/2025 11:00 AM Confirmed Comment: JAMEEL Nichole ERICA LYNN, have received the attached patient education materials/instructions and have verbalized understanding. Patient Signature Date Clinican/Nurse Signature Date MEDICATION LIST Medications to Continue with No Changes Other Medications famotidine (famotidine 20 mg Tab) 1 Tablets By Mouth 2 times a day. Refills: 0. Last Dose: Next Dose: metoclopramide (Reglan 5 mg Tab) 1 Tablets By Mouth 4 times a day. Refills: 0. Last Dose: Next Dose: Misc Prescription (Boost/Ensure) 0 twice a day (before meals). 8oz BID x 2-4 weeks. Disp #24 (twenty-four). Refills: 0. Last Dose: Next Dose: multivitamin, ( 19 ([place])) Oral. Last Dose: Next Dose: naloxone (naloxone 4 mg/0.1 mL nasal spray) 4 Milligram Nasal Inhalation As Directed. for suspectedoverdose symptoms. Refills: 0. Last Dose: Next Dose: olanzapine (olanzapine 2.5 mg Tab) 1 Tablets By Mouth every 6 hours. Last Dose: Next Dose: omega-3 polyunsaturated fatty acids (Fish Oil) 500 Milligram By Mouth every day. Last Dose: Next Dose: ondansetron (Zofran 8 mg Tab) 1 Tablets By Mouth every 8 hours. Last Dose: Next Dose: ondansetron (Zofran ODT 4 mg Tab-Dis) 1 Tablets By Mouth every 6 hours. Refills: 0. Last Dose: Next Dose: oxycodone (oxyCODONE 5 mg Cap) 1 Capsules By Mouth every 12 hours as needed for pain. Refills: 0. Last Dose: Next Dose: pantoprazole (Protonix 40 mg Tab-DR) 1 Tablets By Mouth every day. Refills: 0. Last Dose: Next Dose: polyethylene glycol 3350 (MiraLax 3350 Oral Pwdr for Recon 249 gram) 17 Gram By Mouth every day. Refills: 0. Last Dose: Next Dose: quetiapine (SEROquel 50 mg ER Tab) 1 Tablets By Mouth 2 times a day. Last Dose: Next Dose: sucralfate (Carafate 1 g/10 mL Susp-Oral) 10 Milliliter By Mouth four times a day (before meals andat bedtime). Refills: 0. Last Dose: Next Dose: PATIENT EDUCATION INFORMATION Instructions: Medication Leaflets: You may receive a survey from Jonathon Carlson asking you to rate your care experience. Your feedback is important and will help us understand what we do well and how we can improve the quality of care we provide to you, your loved ones and our community. It???s an honor to serve you. Patient Portal You may access all of your results and other medical record information on our secure patient portal. If you are not signed up for this yet, please contact [email or web address] at [phone] to get signed up today. NATALIE Haro No (more content not included)...[facility] Clinical Summaryon [id number] Clinical SummaryInpatient Clinical Summary [address] [address] Clinical Summary Person Information Name: INDU JORGENSEN [place] Age: 29 Years : 1995 Sex: Female PCP: Yasmin WELCH DO Marital Status: Phone: [phone] Race: White Ethnicity: Non- or Language: Nauruan Visit Id: Visit Reason: O81 Speciality: Acuity: Enc Type: Recurring Med Service: Radiology Arrival: 11/27/2024 10:41:00 Discharge: 11/27/2024 11:10:00 Dispo Type: Home (Routine DC) Address: [address] [place] [id number] Provider Notes: Diagnosis: Problems Active Smoker (07/03/2024) Esophagitis Abnormal CT of the abdomen Visceral hypersensitivity syndrome Stress-related physiological response affecting medical condition Miscarriage Seasonal allergic rhinitis Sciatica Prolactinoma Pain in pelvis (09/25/2022) Malignant tumor of cervix Prolactin level above reference range (05/28/2023) History of laparoscopy Heartburn Fatigue Gastritis (07/20/2023) Endometriosis (clinical) (03/25/2020) Disorder of pituitary gland Abnormal uterine bleeding. 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 Chronic rhinitis Chronic vaginitis (03/25/2020) Depressive disorder (03/25/2020) Weight loss Asthma Bipolar disorder Nausea and vomiting Asthma Scoliosis vocal cord dysfunction Smoking Status: Functional Status: Sensory Deficits: History of Falls: Mobility Assistance Prior to Admission: ADLs: Current Level of Assistance for Self-Care/Mobility: Cognitive Status: Allergies No Known Allergies Laboratory or Other Results This Visit (last charted value for your 11/27/2024 visit) Ultrasound 11/27/2024 10:46 AM US Biophysical Profile w/o N-Str: US Biophysical Profile w/o N-Str 11/20/2024 1:38 PM US Biophysical Profile w/ Non-Str: US Biophysical Profile w/ Non-Str Measurements: Height: Weight: Blood Pressure: 125 mmHg / 68 mmHg BMI: Procedures No Procedures Performed or Documented Immunizations No Immunizations Documented This Visit Final Med List: famotidine (famotidine 20 mg Tab) 1 Tablets By Mouth 2 times a day. Refills: 0. metoclopramide (Reglan 5 mg Tab) 1 Tablets By Mouth 4 times a day. Refills: 0. Misc Prescription (Boost/Ensure) 0 twice a day (before meals). 8oz BID x 2-4 weeks. Disp #24 (twenty-four). Refills: 0. multivitamin, ( 19 ([place])) Oral. naloxone (naloxone 4 mg/0.1 mL nasal spray) 4 Milligram Nasal Inhalation As Directed. for suspectedoverdose symptoms. Refills: 0. olanzapine (olanzapine 2.5 mg Tab) 1 Tablets By Mouth every 6 hours. omega-3 polyunsaturated fatty acids (Fish Oil) 500 Milligram By Mouth every day. ondansetron (Zofran 8 mg Tab) 1 Tablets By Mouth every 8 hours. ondansetron (Zofran ODT 4 mg Tab-Dis) 1 Tablets By Mouth every 6 hours. Refills: 0. oxycodone (oxyCODONE 5 mg Cap) 1 Capsules By Mouth every 12 hours as needed for pain. Refills: 0. pantoprazole (Protonix 40 mg Tab-DR) 1 Tablets By Mouth every day. Refills: 0. polyethylene glycol 3350 (MiraLax 3350 Oral Pwdr for Recon 249 gram) 17 Gram By Mouth every day. Refills: 0. quetiapine (SEROquel 50 mg ER Tab) 1 Tablets By Mouth 2 times a day. sucralfate (Carafate 1 g/10 mL Susp-Oral) 10 Milliliter By Mouth four times a day (before meals andat bedtime). Refills: 0. Care Team Members: Attending Physician: Uriel MEADE DO Consulting Physician: Referring Physician: Uriel MEADE DO Follow up: Type Location Start Finish State US (FT) FT.[email or web address] 12/04/2024 1:00 PM 12/04/2024 2:00 PM Confirmed US (FT) FT.ULTRASOUND 12/11/2024 10:00 AM 12/11/2024 11:00 AM Confirmed US (FT) FT.ULTRASOUND 12/18/2024 10:00 AM 12/18/2024 11:00 AM Confirmed US (FT) FT.ULTRASOUND 12/25/2024 10:00 AM 12/25/2024 11:00 AM Confirmed US (FT) FT.ULTRASOUND 01/01/2025 10:00 AM 01/01/2025 11:00 AM Confirmed US (FT) FT.ULTRASOUND 01/08/2025 10:00 AM 01/08/2025 11:00 AM Confirmed US (FT) FT.ULTRASOUND 01/15/2025 10:00 AM 01/15/2025 11:00 AM Confirmed Patient Education Information:[facility] [id number] Patient SummaryInpatient Patient Summary [place] [id number] Patient Discharge Instructions PERSON INFORMATION Name: INDU JORGENSEN Date of : 1995 Current Date: 11/28/2024 08:08:00 PHYSICIANS Admitting Physician: Uriel MEADE DO Primary Care Physician: Yasmin WELCH DO PCP Phone Number: [phone] Comment: Discharge Diagnosis: Condition at Discharge: Stable INDU JORGENSEN has been given the following list of follow-up instructions, prescriptions, and patient education materials: PATIENT FOLLOW-UP INFORMATION Diet: Activity: Wound Care Instructions: Remove Your Dressing IN: Days Call Your Doctor For: IF UNABLE TO CONTACT YOUR PHYSICIAN AND YOU FEEL IT IS AN EMERGENCY, GO TO THE NEAREST EMERGENCY ROOM OR CALL 911 Home Treatment: Devices/Equipment: Special Services: Additional Instructions: Physician to provide the following pending test results: None Follow up: In the event that this physician does not participate in your insurance network, please consult with your insurance company to find a nearby participating provider. Type Location Start Finish State US (FT) FT.[email or web address] 12/04/2024 1:00 PM 12/04/2024 2:00 PM Confirmed US (FT) FT.ULTRASOUND 12/11/2024 10:00 AM 12/11/2024 11:00 AM Confirmed US (FT) FT.ULTRASOUND 12/18/2024 10:00 AM 12/18/2024 11:00 AM Confirmed US (FT) FT.ULTRASOUND 12/25/2024 10:00 AM 12/25/2024 11:00 AM Confirmed US (FT) FT.ULTRASOUND 01/01/2025 10:00 AM 01/01/2025 11:00 AM Confirmed US (FT) FT.ULTRASOUND 01/08/2025 10:00 AM 01/08/2025 11:00 AM Confirmed US (FT) FT.ULTRASOUND 01/15/2025 10:00 AM 01/15/2025 11:00 AM Confirmed Comment: JAMEEL Nichole, INDU ALDRIDGE, have received the attached patient education materials/instructions and have verbalized understanding. Patient Signature Date Clinican/Nurse Signature Date MEDICATION LIST Medications to Continue with No Changes Other Medications famotidine (famotidine 20 mg Tab) 1 Tablets By Mouth 2 times a day. Refills: 0. Last Dose: Next Dose: metoclopramide (Reglan 5 mg Tab) 1 Tablets By Mouth 4 times a day. Refills: 0. Last Dose: Next Dose: Misc Prescription (Boost/Ensure) 0 twice a day (before meals). 8oz BID x 2-4 weeks. Disp #24 (twenty-four). Refills: 0. Last Dose: Next Dose: multivitamin, ( 19 ([place])) Oral. Last Dose: Next Dose: naloxone (naloxone 4 mg/0.1 mL nasal spray) 4 Milligram Nasal Inhalation As Directed. for suspectedoverdose symptoms. Refills: 0. Last Dose: Next Dose: olanzapine (olanzapine 2.5 mg Tab) 1 Tablets By Mouth every 6 hours. Last Dose: Next Dose: omega-3 polyunsaturated fatty acids (Fish Oil) 500 Milligram By Mouth every day. Last Dose: Next Dose: ondansetron (Zofran 8 mg Tab) 1 Tablets By Mouth every 8 hours. Last Dose: Next Dose: ondansetron (Zofran ODT 4 mg Tab-Dis) 1 Tablets By Mouth every 6 hours. Refills: 0. Last Dose: Next Dose: oxycodone (oxyCODONE 5 mg Cap) 1 Capsules By Mouth every 12 hours as needed for pain. Refills: 0. Last Dose: Next Dose: pantoprazole (Protonix 40 mg Tab-DR) 1 Tablets By Mouth every day. Refills: 0. Last Dose: Next Dose: polyethylene glycol 3350 (MiraLax 3350 Oral Pwdr for Recon 249 gram) 17 Gram By Mouth every day. Refills: 0. Last Dose: Next Dose: quetiapine (SEROquel 50 mg ER Tab) 1 Tablets By Mouth 2 times a day. Last Dose: Next Dose: sucralfate (Carafate 1 g/10 mL Susp-Oral) 10 Milliliter By Mouth four times a day (before meals andat bedtime). Refills: 0. Last Dose: Next Dose: PATIENT EDUCATION INFORMATION Instructions: Medication Leaflets: You may receive a survey from [employer]athon [employer] asking you to rate your care experience. Your feedback is important and will help us understand what we do well and how we can improve the quality of care we provide to you, your loved ones and our community. It???s an honor to serve you. Patient Portal You may access all of your results and other medical record information on our secure patient portal. If you are not signed up for this yet, please contact [email or web address] at [phone] to get signed up today. DA (more content not included)...[facility] w/o N-Stron [id number] Biophysical Profile w/o N-Str Exam Date/Time: 11/27/2024 10:46 EDT Reason for Exam: O09.812 Report IMPRESSION: BIOPHYSICAL PROFILE SCORE OF 6 OUT OF 8, FOR INADEQUATE BREATHING DURING THE STUDY. DATE: 11/27/2024 9:55 AM EXAM: US Biophysical Profile w/o N-Str CLINICAL HISTORY: O09.812 Gestational Age by LMP: 29 weeks, 0 days 29w0d (weeks/days) COMPARISON: 11/20/2024. TECHNIQUE: Grayscale evaluation of the fetus was performed for biophysical profile purposes and does not constitute an anatomic survey. FINDINGS: There is a single intrauterine fetus in a cephalic position. There is a grade 2-3 anterior placenta without evidence of placenta previa. Amniotic Fluid Index: 16.0 cm cardiac activity is measured at 140 bpm. Points were awarded for the following: * Breathin *Gross Body Movement: 2 * Tone: 2 *Amniotic Fluid Volume: 2 Biophysical Profile Sum Score: 6 Ordering Provider: Uriel MEADE FINAL REPORT Dictated: 11/27/2024 11:36 am Arun Bhatia MD Signed (Electronic Signature): 11/27/2024 11:36 am Signed by: Arun Bhatia MD Transcribed by: JURGEN Technologist: wOenMercy Health St. Rita'S Medical CenterCapillary Glucose POCon [id number] [Mass/Vol]84 mg/ePBlwvsg01-78KxxjnvMercy Health St. Rita'S Medical CenterComment on above:Result Comment: Cleaned MeterPerformed By: #### [id number] #### [facility] [address], [place] [address]Idp 1 Hron [id number] [Mass/Vol]179 mg/mSUraezk31-[address] Rita'S Medical CenterComment on above:Performed By: #### [id number] #### [facility] [address], [place] [address]Xie 2 Hron [id number] [Mass/Vol]99 mg/nNVjyhnr32-[address] Rita'S Medical CenterComment on above:Performed By: #### [id number] #### [facility] [address], [place] [address]Ywu 3 Hron [id number] [Mass/Vol]85 mg/vYUtxfqk79-[address] Rita'S Medical CenterComment on above:Performed By: #### [id number] #### [facility] [address], [place] [address]Wzj Fastingon [id number] [Mass/Vol]86 mg/rISqyusm81-[address] Rita'S Medical CenterComment on above:Performed By: #### [id number] #### [facility] [address], [place] [address]Tbbzwmcwc Clinical Summaryon [id number] Clinical SummaryInpatient Clinical Summary [address] [address] Clinical Summary Person Information Name: INDU JORGENSEN [place] Age: 29 Years : 1995 Sex: Female PCP: Yasmin WELCH DO Marital Status: Phone: [phone] Race: White Ethnicity: Non- or Language: Nauruan Visit Id: Visit Reason: NST Speciality: Acuity: Enc Type: Outpatient Med Service: Obstetrics Arrival: 11/24/2024 07:08:39 Discharge: 11/24/2024 07:46:00 Dispo Type: Home (Routine DC) Address: [address] [place] [id number] Provider Notes: Diagnosis: Problems Active Smoker (07/03/2024) Esophagitis Abnormal CT of the abdomen Visceral hypersensitivity syndrome Stress-related physiological response affecting medical condition Miscarriage Seasonal allergic rhinitis Sciatica Prolactinoma Pain in pelvis (09/25/2022) Malignant tumor of cervix Prolactin level above reference range (05/28/2023) History of laparoscopy Heartburn Fatigue Gastritis (07/20/2023) Endometriosis (clinical) (03/25/2020) Disorder of pituitary gland Abnormal uterine bleeding. 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 Chronic rhinitis Chronic vaginitis (03/25/2020) Depressive disorder (03/25/2020) Weight loss Asthma Bipolar disorder Nausea and vomiting Asthma Scoliosis vocal cord dysfunction Smoking Status: Functional Status: Sensory Deficits: History of Falls: Mobility Assistance Prior to Admission: ADLs: Current Level of Assistance for Self-Care/Mobility: Cognitive Status: Allergies No Known Allergies Laboratory or Other Results This Visit (last charted value for your 11/24/2024 visit) No Laboratory or Other Results This Visit Measurements: Height: Weight: Blood Pressure: 112 mmHg / 57 mmHg BMI: Procedures No Procedures Performed or Documented Immunizations No Immunizations Documented This Visit Final Med List: famotidine (famotidine 20 mg Tab) 1 Tablets By Mouth 2 times a day. Refills: 0. metoclopramide (Reglan 5 mg Tab) 1 Tablets By Mouth 4 times a day. Refills: 0. Misc Prescription (Boost/Ensure) 0 twice a day (before meals). 8oz BID x 2-4 weeks. Disp #24 (twenty-four). Refills: 0. multivitamin, ( 19 ([place])) Oral. naloxone (naloxone 4 mg/0.1 mL nasal spray) 4 Milligram Nasal Inhalation As Directed. for suspectedoverdose symptoms. Refills: 0. olanzapine (olanzapine 2.5 mg Tab) 1 Tablets By Mouth every 6 hours. omega-3 polyunsaturated fatty acids (Fish Oil) 500 Milligram By Mouth every day. ondansetron (Zofran 8 mg Tab) 1 Tablets By Mouth every 8 hours. ondansetron (Zofran ODT 4 mg Tab-Dis) 1 Tablets By Mouth every 6 hours. Refills: 0. oxycodone (oxyCODONE 5 mg Cap) 1 Capsules By Mouth every 12 hours as needed for pain. Refills: 0. pantoprazole (Protonix 40 mg Tab-DR) 1 Tablets By Mouth every day. Refills: 0. polyethylene glycol 3350 (MiraLax 3350 Oral Pwdr for Recon 249 gram) 17 Gram By Mouth every day. Refills: 0. quetiapine (SEROquel 50 mg ER Tab) 1 Tablets By Mouth 2 times a day. sucralfate (Carafate 1 g/10 mL Susp-Oral) 10 Milliliter By Mouth four times a day (before meals andat bedtime). Refills: 0. Care Team Members: Attending Physician: Uriel MEADE DO Consulting Physician: Referring Physician: Follow up: With: Address: When: Boaz Florez In 3 days 11/27/2024 Comments: BPP and NST Type Location Start Finish State US (FT) FT.[email or web address] 11/27/2024 10:00 AM 11/27/2024 11:00 AM Confirmed US (FT) FT.ULTRASOUND 12/04/2024 1:00 PM 12/04/2024 2:00 PM Confirmed US (FT) FT.ULTRASOUND 12/11/2024 10:00 AM 12/11/2024 11:00 AM Confirmed US (FT) FT.ULTRASOUND 12/18/2024 10:00 AM 12/18/2024 11:00 AM Confirmed US (FT) FT.ULTRASOUND 12/25/2024 10:00 AM 12/25/2024 11:00 AM Confirmed US (FT) FT.ULTRASOUND 01/01/2025 10:00 AM 01/01/2025 11:00 AM Confirmed US (FT) FT.ULTRASOUND 01/08/2025 10:00 AM 01/08/2025 11:00 AM Confirmed US (FT) FT.ULTRASOUND 01/15/2025 10:00 AM 01/15/2025 11:00 AM Confirmed Patient Education Information:[facility] Patient Summaryon [id number] Patient SummaryInpatient Patient Summary [place] [address] Patient Discharge Instructions PERSON INFORMATION Name: INDU JORGENSEN Date of : 1995 Current Date: 11/24/2024 08:03:32 PHYSICIANS Admitting Physician: Uriel MEADE DO Primary Care Physician: Yasmin WELCH DO PCP Phone Number: [phone] Comment: Discharge Diagnosis: Condition at Discharge: INDU JORGENSEN has been given the following list of follow-up instructions, prescriptions, and patient education materials: PATIENT FOLLOW-UP INFORMATION Diet: Activity: Wound Care Instructions: Remove Your Dressing IN: Days Call Your Doctor For: IF UNABLE TO CONTACT YOUR PHYSICIAN AND YOU FEEL IT IS AN EMERGENCY, GO TO THE NEAREST EMERGENCY ROOM OR CALL 911 Home Treatment: Devices/Equipment: Special Services: Additional Instructions: Physician to provide the following pending test results: Follow up: With: Address: When: Boaz Florez In 3 days 11/27/2024 Comments: BPP and NST In the event that this physician does not participate in your insurance network, please consult with your insurance company to find a nearby participating provider. Type Location Start Finish State US (FT) FT.ULTRASOUND 11/27/2024 10:00 AM 11/27/2024 11:00 AM Confirmed US (FT) FT.ULTRASOUND 12/04/2024 1:00 PM 12/04/2024 2:00 PM Confirmed US (FT) FT.ULTRASOUND 12/11/2024 10:00 AM 12/11/2024 11:00 AM Confirmed US (FT) FT.ULTRASOUND 12/18/2024 10:00 AM 12/18/2024 11:00 AM Confirmed US (FT) FT.ULTRASOUND 12/25/2024 10:00 AM 12/25/2024 11:00 AM Confirmed US (FT) FT.ULTRASOUND 01/01/2025 10:00 AM 01/01/2025 11:00 AM Confirmed US (FT) FT.ULTRASOUND 01/08/2025 10:00 AM 01/08/2025 11:00 AM Confirmed US (FT) FT.ULTRASOUND 01/15/2025 10:00 AM 01/15/2025 11:00 AM Confirmed Comment: JAMEEL Nichole ERICA LYNN, have received the attached patient education materials/instructions and have verbalized understanding. Patient Signature Date Clinican/Nurse Signature Date MEDICATION LIST Medications to Continue with No Changes Other Medications famotidine (famotidine 20 mg Tab) 1 Tablets By Mouth 2 times a day. Refills: 0. Last Dose: Next Dose: metoclopramide (Reglan 5 mg Tab) 1 Tablets By Mouth 4 times a day. Refills: 0. Last Dose: Next Dose: Misc Prescription (Boost/Ensure) 0 twice a day (before meals). 8oz BID x 2-4 weeks. Disp #24 (twenty-four). Refills: 0. Last Dose: Next Dose: multivitamin, ( 19 ([place])) Oral. Last Dose: Next Dose: naloxone (naloxone 4 mg/0.1 mL nasal spray) 4 Milligram Nasal Inhalation As Directed. for suspectedoverdose symptoms. Refills: 0. Last Dose: Next Dose: olanzapine (olanzapine 2.5 mg Tab) 1 Tablets By Mouth every 6 hours. Last Dose: Next Dose: omega-3 polyunsaturated fatty acids (Fish Oil) 500 Milligram By Mouth every day. Last Dose: Next Dose: ondansetron (Zofran 8 mg Tab) 1 Tablets By Mouth every 8 hours. Last Dose: Next Dose: ondansetron (Zofran ODT 4 mg Tab-Dis) 1 Tablets By Mouth every 6 hours. Refills: 0. Last Dose: Next Dose: oxycodone (oxyCODONE 5 mg Cap) 1 Capsules By Mouth every 12 hours as needed for pain. Refills: 0. Last Dose: Next Dose: pantoprazole (Protonix 40 mg Tab-DR) 1 Tablets By Mouth every day. Refills: 0. Last Dose: Next Dose: polyethylene glycol 3350 (MiraLax 3350 Oral Pwdr for Recon 249 gram) 17 Gram By Mouth every day. Refills: 0. Last Dose: Next Dose: quetiapine (SEROquel 50 mg ER Tab) 1 Tablets By Mouth 2 times a day. Last Dose: Next Dose: sucralfate (Carafate 1 g/10 mL Susp-Oral) 10 Milliliter By Mouth four times a day (before meals andat bedtime). Refills: 0. Last Dose: Next Dose: PATIENT EDUCATION INFORMATION Instructions: Medication Leaflets: You may receive a survey from Jonathon Carlson asking you to rate your care experience. Your feedback is important and will help us understand what we do well and how we can improve the quality of care we provide to you, your loved ones and our community. It???s an honor to serve you. Patient Portal You may access all of your results and other medical record information on our secure patient portal. If you are not s (more content not included)...Normal [facility] Biophysical Profile w/ Non-Stron 11-20-2024 US Biophysical Profile w/ Non-StrExam Date/Time: 11/20/2024 13:38 EDT Reason for Exam: O09.812 Report IMPRESSION: BIOPHYSICAL PROFILE SCORE OF 8 OUT OF 8. DATE: 11/20/2024 12:52 PM EXAM: US Biophysical Profile w/ N-Str CLINICAL HISTORY: O.812 Technologist Comments: Hx 28 w 0d, high risk Gestational Age by LMP: 28 weeks, 0 days. COMPARISON: First trimester ultrasound 06/20/2024 TECHNIQUE: Grayscale evaluation of the fetus was performed for biophysical profile purposes and does not constitute an anatomic survey. FINDINGS: There is a single intrauterine fetus in a breech position. Grade 2-3 anterior placenta without evidence of placenta previa. Amniotic Fluid Index: 14.7 cm cardiac activity is measured at 143 bpm. Points were awarded for the following: * Breathin *Gross Body Movement: 2 * Tone: 2 *Amniotic Fluid Volume: 2 Biophysical Profile Sum Score: 8 Please see separate nonstress test results. Ordering Provider: Uriel MEADE FINAL REPORT Dictated: 11/20/2024 5:06 pm Arun Bhatia MD Signed (Electronic Signature): 11/20/2024 5:06 pm Signed by: Arun Bhatia MD Transcribed by: JURGEN Technologist: [facility] InstituteUrinalysis macro (dipstick) panel (U)on 47-01-7630Uundrpgne, UANegativeNegative - 4(70) +++ mg/dLNOMS HealthcareBlood, UANegativeNegative - 50 Mick/mcLNOMS Healthcare Clarity, UAClearNOMS HealthcareColor, UAYellowNOMS HealthcareGlucose, UANegative Negative - 2000(110) ++++ mg/dLNOMS HealthcareInterpretation and review of laboratory resultsAbnormalNOMS HealthcareKetones, UANegativeNegative - 160(16) ++++ mg/dLNONH HealthcareLeukocytes, UANegativeNegative - 500+++ Campos/mcLNOMS HealthcareNitrite, UANegativeNegative - PositiveNOMS HealthcarepH, UA6.55 - 9 NOMS HealthcareProtein, UAPositiveNegative - 2000(20) ++++ mg/dLSANPETE VALLEY [facility]PITAL Healthcare Spec Grav, UA1.0151 - 1.03NOMS HealthcareUrobilinogen, UA1.00.2 - 12 mg/dLNOMS HealthcareNOMS HealthcareCBC w/Indiceson 41-14-2384Bwurindstpu distribution width (RBC) [Ratio]15.7 %High10.9-14.2FBethesda North HospitalComment on above:Performed By: #### [id number] #### [facility] [address], [place] [address]Tdbsvadtjs (Bld) [Volume fraction]31.4 %Low34.0-46.0[facility] Rita'S Medical CenterComment on above:Performed By: #### [id number] #### [facility] [address], [place] [address]Mqwrpsddbb (Bld) [Mass/Vol]10.8 g/dLLow12.0-16.0[facility]'S Medical CenterComment on above:Performed By: #### [id number] #### [facility] [address], [place] [address]UCO (RBC) [Entitic mass]30.0 wdDpktun45.0-34.0[facility]'S Medical CenterComment on above:Performed By: #### [id number] #### [facility] [address], [place] [address]PMTB (RBC) [Mass/Vol]34.3 g/lWUjgnbj03.4-36.0[facility]'S Medical CenterComment on above:Performed By: #### [id number] #### [facility] [address], [place] [address]PQN (RBC) [Entitic vol]87.6 tCNpirqt59.0-100.0Fisher Gautam Medical CenterComment on above:Performed By: #### [id number] #### [facility] [address], [place] [address]Zbnfwiyg583.0 E9/JTrsthm505.0-500.0[facility] Comment on above:Performed By: #### [id number] #### [facility] [address], [place] [address]Tkdbbrpz mean volume (Bld) [Entitic vol]7.2 fLNormal6.4-10.[address] [facility]'S Medical CenterComment on above:Performed By: #### [id number] #### [facility] [address] [place] [address]HHZ1.6 E12/LLow4.3-5.9[facility] Rita'S Medical CenterComment on above:Performed By: #### [id number] #### [facility] [address] [place] [address]TFL morphology finding Nom (Bld)NORMALInvalid Interpretation CodeMercy Health St. Rita'S Medical CenterComment on above:Performed By: #### [id number] #### [facility] [address] [place] [address]NVJ88.8 E9/LNormal4.0-11.0[facility]'S Medical CenterComment on above:Performed By: #### [id number] #### [facility] [address] [place] [address]Evsu Scr Glu 1 Hron 44-19-7800Vxsdcfs [Mass/Vol]166 mg/dLHigh 55-140Mer[facility] Health St[facility] Rita'S Medical CenterComment on above:Performed By: #### [id number] #### [facility] [address] [place] [address]Jdvmkgvcso macro (dipstick) panel (U)on 18-14-1875Bagmakxci, UA NegativeNegative - 4(70) +++ mg/dLNOMS HealthcareBlood, UANegativeNegative - 50 Mick/mcLNOMS HealthcareClarity, UACloudyNOMS HealthcareColor, UAStrawNONH HealthcareGlucose, UANegativeNegative - 1999(110) ++++ mg/dLNOMS Healthcare Interpretation and review of laboratory resultsAbnormalNOMS HealthcareKetones, UANegativeNegative - 160(16) ++++ mg/dLNOMS HealthcareLeukocytes, UANegative Negative - 500+++ Campos/mcLNOMS HealthcareNitrite, UANegativeNegative - Positive NOMS HealthcarepH, UA8.55 - 9NOMS HealthcareProtein, UAPositiveNegative - 2000(20) ++++ mg/dLNOMS HealthcareSpec Grav, [place] - 1.03N[facility] Healthcare Urobilinogen, UA1.00.2 - 12 mg/dLNOMS HealthcareNOMS HealthcareUrinalysis macro (dipstick) panel (U)on 16-41-8787Iqbaqlbeu, UANegativeNegative - 4(70) +++ mg/dL NOMS HealthcareBlood, UANegativeNegative - 50 Mick/mcLNOMS HealthcareClarity, UA ClearNOMS HealthcareColor, UAYellowNOMS HealthcareGlucose, UANegativeNegative - 1999(110) ++++ mg/dLNOMS HealthcareInterpretation and review of laboratory resultsNormalNOMS HealthcareKetones, UANegativeNegative - 160(16) ++++ mg/dLNOMS HealthcareLeukocytes, UANegativeNegative - 500+++ Campos/mcLNOMS Healthcare Nitrite, UANegativeNegative - PositiveNOMS HealthcarepH, UA65 - 9N[facility] Healthcare Protein, UANegativeNegative - 1999(20) ++++ mg/dLNOMS HealthcareSpec Grav, UA 1.021 - 1.03NOMS HealthcareUrobilinogen, UA1.00.2 - 12 mg/dLNOMS HealthcareNOMS HealthcareCBC (NO DIFF)on 69-66-9273Fusmkwjelga distribution width (RBC) [Ratio] 15.5 %High11.5-15ProChildren'S Medical Center PlanoComment on above:Performed By: #### CBC #### [facility] (TT) [address] [place] [address] VIRHematocrit (Bld) [Volume fraction]36.9 %Andeta88-95JphShngakChildren'S Medical Center PlanoComment on above:Performed By: #### CBC #### [facility] ([facility]) [address] [place] [address] VIRHemoglobin (Bld) [Mass/Vol]12.2 g/eZWqfuig15.7-15.5ProMedLodi Memorial HospitalComment on above:Performed By: #### CBC #### [facility] ([facility]) [address] [place] [address] VIRMCH (RBC) [Entitic mass]29.2 qgGqtqsw08-44LztWxokmaDelaware County HospitalComment on above:Performed By: #### CBC #### [facility] ([facility]) [address] [place] [address] VIRMCHC (RBC) [Mass/Vol]33.1 g/uJXutbpq56-18OxyJixsixChildren'S Medical Center PlanoComment on above:Performed By: #### CBC #### [facility] ([facility]) [address] [place] [address] VIRMCV (RBC) [Entitic vol]88 lVVimkru54-085BylAocjrhDelaware County HospitalComment on above:Performed By: #### CBC #### [facility] ([facility]) [address] [place] [address] VIRPlatelet mean volume (Bld) [Entitic vol]7.8 fLNormal7-12 [facility] County HospitalComment on above:Performed By: #### CBC #### [facility] ([facility]) [address] [place] [address] VIRPlatelets (Bld) [#/Vol]258 10*3/mTTflpqg436-122YbgRrelpa Fremont HospitalComment on above:Performed By: #### CBC #### [facility] ([facility]) [address] [place] [address] VIRRBC COUNT4.19 X10E12/LNormal3.8-5.2ProMedica Hazlehurst HospitalComment on above:Performed By: #### CBC #### [facility] ([facility]) [address] [place] [address] VIRWBC (Bld) [#/Vol]10.7 10*3/uLNormal4-11ProChildren'S Medical Center PlanoComment on above:Performed By: #### CBC #### [facility] ([facility]) [address] [place] [address] VIRCOMPREHENSIVE METABOLIC PANELon 96-12-0749Mpakqpj [Mass/Vol] 3.7 g/dLNormal3.2-5.3PKing's Daughters Medical Center OhioComment on above:Performed By: #### CMP #### [facility] ([facility]) [address] [place] [address] VIRALP [Catalytic activity/Vol]42 U/BVakzar36-214XioYelyziChildren'S Medical Center PlanoComment on above:Performed By: #### CMP #### [facility] ([facility]) [address] [place] [address] VIRALT [Catalytic activity/Vol]10 U/LNormal<=31PKing's Daughters Medical Center OhioComment on above:Performed By: #### CMP #### [facility] ([facility]) [address] [place] [address] VIRAnion gap [Moles/Vol]7 mmol/LNormal5-15ProChildren'S Medical Center PlanoComment on above:Performed By: #### CMP #### [facility] ([facility]) [address] [place] [address] VIRAST [Catalytic activity/Vol]13 U/LNormal<=41ProChildren'S Medical Center PlanoComment on above:Performed By: #### CMP #### [facility] ([facility]) [address] [place] [address] VIRBilirubin [Mass/Vol]0.3 mg/dLNormal0.3-1.2PKing's Daughters Medical Center OhioComment on above:Performed By: #### CMP #### [facility] ([facility]) [address] [place] [address] VIRCalcium [Mass/Vol]8.9 mg/dLNormal8.5-10.5PKing's Daughters Medical Center OhioComment on above:Performed By: #### CMP #### [facility] ([facility]) [address] [place] [address] VIRChloride [Moles/Vol]104 mmol/XFavbsv70-270WmhZpqeflChildren'S Medical Center PlanoComment on above:Performed By: #### CMP #### [facility] ([facility]) [address] [place] [address] VIRCO2 [Moles/Vol]26 mmol/QMknvgc16-95AbiSzjopyKing's Daughters Medical Center OhioComment on above:Performed By: #### CMP #### [facility] ([facility]) [address] [place] [address] VIRCreatinine [Mass/Vol]0.48 mg/dLNormal0.40-1.00ProChildren'S Medical Center PlanoComment on above:Result Comment: METHOD TRACEABLE TO IDMS STANDARDPerformed By: #### CMP #### [facility] ([facility]) [address] [place] [address] VIREGFR (CKD-EPI) NON-RACE DEPENDENT>^90Normal>=60ProChildren'S Medical Center PlanoComment on above:Result Comment: Reported eGFR is based on the CKD-EPI 2021 equation that does not use a race coefficient.Performed By: #### CMP #### [facility] ([facility]) [address] [place] [address] VIRGlucose [Mass/Vol]87 mg/vKIxmxqm73-46YzrIkngazChildren'S Medical Center PlanoComment on above:Performed By: #### CMP #### [facility] ([facility]) [address] [place] [address] VIRPotassium [Moles/Vol]4.3 mmol/LNormal3.5-5.0Del[facility] County HospitalComment on above:Performed By: #### CMP #### [facility] ([facility]) [address] [place] [address] VIRProtein [Mass/Vol]6.1 g/dLNormal6.0-8.0ProChildren'S Medical Center PlanoComment on above:Performed By: #### CMP #### [facility] ([facility]) [address] [place] [address] VIRSodium [Moles/Vol]137 mmol/YWwkmic897-440WdjLvuble Fremont HospitalComment on above:Performed By: #### CMP #### [facility] ([facility]) [address] [place] [address] VIRUrea nitrogen [Mass/Vol]7 mg/dLNormal5-23ProChildren'S Medical Center PlanoComment on above:Performed By: #### CMP #### [facility] ([facility]) [address] [place] [address] VIRFERRITINon 09-11-7132Rbnyjduz [Mass/Vol]9 ng/cQTjf28-455 ProMPico Rivera Medical CenterComment on above:Performed By: #### FERR #### [facility] ([facility]) [address] [place] [address] VIRFOLATEon 67-97-7870YFVPH ACID15.8 ng/mLNormal>5.8ProChildren'S Medical Center PlanoComment on above:Performed By: #### FOLI #### [facility] ([facility]) [address] [place] [address] VIRMAGNESIUMon 21-76-6789Wkimstwot [Mass/Vol]1.9 mg/dLNormal 1.8-2.6ProChildren'S Medical Center PlanoComment on above:Performed By: #### MG #### [facility] ([facility]) [address] [place] [address] VIRUS ABDOMEN COMPLETEon 20-53-9912KU ABDOMEN COMPLETEUS ABDOMEN COMPLETE History: Right upper quadrant pain. The patient is 16 weeks gestation. Exam/Technique: 5 MHz curvilinear transducer utilized to scan the right upper quadrant. Doppler imaging and grayscale imaging performed. Comparison: None available. Findings: Gallbladder normal>. There are no stones. Sonographic Urias sign is negative. Gallbladder wall thickness is 0.1 cm. CBD diameter is 0.2 cm. Hepatopetal flow in the portal vein is noted. Main portal vein velocity 18 cm/s. No obvious focal liver lesion. Spleen is normal. Pancreas is normal. Right kidney is 13.2 cm in length and left kidney 12.4 cm in length. The visible proximal aorta and IVC appear grossly normal. IMPRESSION: Normal examination. Finalized by Aroldo Feliciano MD on 09/04/2024 10:15 AMNormalProMedica Little Company Of Mary HospitalVITAMIN B12on 63-30-2426Bhnpihrnw (Vitamin B12) [Mass/Vol]309 pg/mL Qowawn983-396KklZyisew [facility] HospitalComment on above:Performed By: #### B12 #### [facility] (TT) [address] [place] [address] VIRIGP,APTIMA HPV,AGE GDLNon 88-67-4313MSR GDLN ACOG TESTING Note.NOMS HealthcareComment on above:TESTS RESULT FLAG UNITS REF RANGE LAB Clinician Provided Cytology Information Source.............Vagina Other.............. No. of containers..01 ThinPrep Vial Age Algo ACOG Rhonda... FLAG LEGEND: L-Low Normal,H-High Normal,LL-Alert Low,HH-Alert High <-Panic Low,>-Panic High,A-Abnormal,AA-Critical Abnormal Performed at: 01 =G [facility] [address] Allyssa Almendarez MD, IGP, RFX APTIMA HPV ASCUNote.[facility] HealthcareComment on above:TESTS RESULT FLAG UNITS REF RANGE LAB DIAGNOSIS: 02 NEGATIVE FOR INTRAEPITHELIAL LESION OR MALIGNANCY. Specimen adequacy: 02 Satisfactory for evaluation. No endocervical component is identified. Performed by: 02 Jose Shaikh, Template Worker ([facility]) . 02 Note: Note 03 The Pap smear is a screening test designed to aid in the detection of premalignant and malignant conditions of the uterine cervix. It is not a diagnostic procedure and should not be used as the sole means of detecting cervical cancer. Both false-positive and false-negative reports do occur. Test Methodology: Note 03 This liquid based ThinPrep(R) pap test was screened with the use of an image guided system. . 02 The HPV DNA reflex criteria were not met with this specimen result therefore, no HPV testing was performed. FLAG LEGEND: L-Low Normal,H-High Normal,LL-Alert Low,HH-Alert High <-Panic Low,>-Panic High,A-Abnormal,AA-Critical Abnormal Performed at: 02 [facility] [address] [address] [place] [address] Kwaku Powell MD, [address] [address] Allyssa Almendarez MD, Performed at: =G - [facility] [id number] Financing Analyst: Allyssa Almendarez MD, Phone: [phone] Performed at: [facility] [address] [address] [place], [place] [id number] Financing Analyst: wKaku Powell MD, Phone: [phone] SPATULA-ALONE VAGINA CLINISYNCNOMS HealthcareRECURRENT VAGINITIS (HTRX)on 31-45-3738VLCJDTSWC VAGINAE 29.3AbnormalNOMS HealthcareATOPOBIUM VAGINAEDetectedAbnormalNOMS HealthcareBVAB 2,3 (BACTERIAL VAGINOSIS ASSOCIATED BACTERIA 2, 3); MOBILUNCUS BPH1KYYW HealthcareBVAB 2,3 (BACTERIAL VAGINOSIS ASSOCIATED BACTERIA 2, 3); MOBILUNCUS SPPNot detectedNOMS HealthcareCANDIDA ALBICANS, PARAPSILOSIS, TWLXQQBXVJ5RIOC HealthcareCANDIDA ALBICANS, PARAPSILOSIS, TROPICALISNot detectedNOMS Healthcare JABIER BKAEKTHB9XQZV HealthcareCANDIDA GLABRATANot detectedNOMS Healthcare JABIER LJIRGD1KOMA HealthcareCANDIDA KRUSEINot detectedNOMS HealthcareCHLAMYDIA PJEIYEZBROY5TUQH HealthcareCHLAMYDIA TRACHOMATISNot detectedNOMS Healthcare GARDNERELLA LGOEHSKNM37.051AbnormalNOMS HealthcareGARDNERELLA VAGINALISDetected AbnormalNOMS HealthcareInterpretation and review of laboratory resultsAbnormal NOMS HealthcareMEGASPHAERA (TYPES 1, 2)0NOMS HealthcareMEGASPHAERA (TYPES 1, 2) Not detectedNOMS HealthcareMYCOPLASMA GDCPGEJYZX3FNEP HealthcareMYCOPLASMA GENITALIUMNot detectedNOMS HealthcareNEISSERIA YGMSDUGWJIQ1BYWR Healthcare NEISSERIA GONORRHOEAENot detectedNONH HealthcareTET B, TET M24.916AbnormalNOMS HealthcareTET B, TET MDetectedAbnormalNOMS HealthcareTRICHOMONAS ZQHDAYDDY8KNJJ HealthcareTRICHOMONAS VAGINALISNot detectedNOMS HealthcareNOMS Healthcare Urinalysis macro (dipstick) panel (U)on 28-11-0366Logknulaq, UANegativeNegative - 4(70) +++ mg/dLNOMS HealthcareBlood, UANegativeNegative - 50 Mick/mcLNOMS HealthcareClarity, UAClearNOMS HealthcareColor, UAYellowNOMS HealthcareGlucose, UANegativeNegative - 2000(110) ++++ mg/dLNOMS HealthcareInterpretation and review of laboratory resultsNormalNOMS HealthcareKetones, UANegativeNegative - 160(16) ++++ mg/dLNOMS HealthcareLeukocytes, UANegativeNegative - 500+++ Campos/mcL NOMS HealthcareNitrite, UANegativeNegative - PositiveNOMS HealthcarepH, UA65 - 9 NOMS HealthcareProtein, UANegativeNegative - 2000(20) ++++ mg/dLNOMS Healthcare Spec Grav, UA1.0251 - 1.03NOMS HealthcareUrobilinogen, UA0.20.2 - 12 mg/dLNOMS HealthcareNONH HealthcareBasic metabolic 2000 panelon 19-28-8877Eslhl gap [Moles/Vol]13 mmol/L10 - 20 mmol/[place] State Health SystemCalcium [Mass/Vol]8.8 mg/dL8.6 - 10.6 mg/dLUnThe Jewish HospitalChloride [Moles/Vol]101 mmol/L98 - 107 mmol/[facility] Health SystemCO2 [Moles/Vol]23 mmol/L21 - 32 mmol/[facility] SystemCreatinine [Mass/Vol]0.54 mg/dL0.50 - 1.05 mg/dLUnThe Jewish HospitaleG- [facility] Dublin Methodist HospitalComment on above:Calculations of estimated GFR are performed using the 2020 CKD-EPI Study Refit equation without therace variable for the IDMS-Traceable creatinine methods. https://jasn.asnjournals.org/content//ASN.7685773756 Glucose [Mass/Vol]137 mg/uZOzxd42 - 99 mg/dLUnThe Jewish Hospital Interpretation and review of laboratory resultsAbnormalUniOhioHealth Grady Memorial HospitalPotassium [Moles/Vol]3.6 mmol/L3.5 - 5.3 mmol/[facility] Health SystemSodium [Moles/Vol]133 mmol/FNdq334 - 145 mmol/[place] [facility] Health SystemUrea nitrogen [Mass/Vol]12 mg/dL6 - 23 mg/dLProMedica Defiance Regional HospitalAnion gap [Moles/Vol]13 mmol/HTukhpd30-31BdkdytijwcTrinity Health System East CampusComment on above:Performed By: #### 19468-1 #### CARI Mark ([id number]) [facility] ([facility]) [address] [place] [address]Shmusta [Mass/Vol]8.8 mg/dLNormal8.6-10.6UnTrinity Health System East CampusComment on above:Performed By: #### 04115-0 #### CARI Mark ([id number]) [facility] ([facility]) [address] [place] [address] 79332Pzsxxmnr [Moles/Vol]101 mmol/KEzxlwp30-745CpyvkpdbvwTrinity Health System East CampusComment on above:Performed By: #### 54806-9 #### CARI Mark ([id number]) [facility] ([facility]) [id number] [place] [address]BR0 [Moles/Vol]23 mmol/SRqfhrs30-18SwbnkoezptTrinity Health System East CampusComment on above:Performed By: #### 37119-3 #### CARI Mark ([id number]) [facility] ([facility]) [address] [place] [address]Kimeripyfd [Mass/Vol]0.54 mg/dLNormal0.50-1.05UnTrinity Health System East CampusComment on above:Performed By: #### 98692-5 #### CARI Mark ([id number]) [facility] ([facility]) [address] [place], [place] [address]CCL/1.73 sq M.predicted MDRD (S/P/Bld) [Vol rate/Area] mL/min/{1.73_m2}Normal>60UnTrinity Health System East CampusComment on above:Result Comment: Calculations of estimated GFR are performed using the 2020 CKD-EPI Study Refit equation without the race variable for the IDMS-Traceable creatinine methods. https://jasn.asnjournals.org/content/early//ASN.0728895526Qzxjrlijh By: #### 68168-3 #### CARI Mark ([id number]) [facility] ([facility]) [address] [place] [address]Rwbglaw [Mass/Vol]137 mg/vLNybb35-79GgfonlumabMckitrick HospitalComment on above:Performed By: #### 68492-6 #### CARI Mark ([id number]) [facility] ([facility]) [id number] [place] [address] [id number] [Moles/Vol]3.6 mmol/LNormal3.5-5.3Mckitrick HospitalComment on above:Performed By: #### [id number] #### CARI Mark ([id number]) [facility] [facility] [address] [place] [address] 75545Mbnlnv [Moles/Vol]133 mmol/NZot451-662JmwaxeeresTrinity Health System East CampusComment on above:Performed By: #### [id number] #### CARI Mark ([id number]) [facility] ([facility]) [address] [place] [address] 10621Iinm nitrogen [Mass/Vol]12 mg/dLNormal6-23UnTrinity Health System East CampusComment on above:Performed By: #### [id number] #### CARI Mark ([id number]) [facility] ([facility]) [address] [place] [address] 71247Xqcx hydroxybutyrate [Mass or moles/Vol]on 44-77-6206Jfyd hydroxybutyrate [Moles/Vol]0.11 mmol/L0.02 - 0.27 mmol/[facility] Health SystemThe beta-hydroxybutyrate test performance characteristics have been validated by [facility]. This test has not been approved by the FDA; however such approval is not necessary. [facility] HospitalBeta hydroxybutyrate [Moles/Vol]0.11 mmol/L Normal0.02-0.27UnTrinity Health System East CampusComment on above: Order Comment: The beta-hydroxybutyrate test performance characteristics have been validated by [facility]. This test has not been approved by the FDA; however such approval is not necessary. Performed By: #### [id number] #### CARI Mark ([id number]) [facility] ([facility]) [address] [place] [address] 54656Plof hydroxybutyrate [Moles/Vol]0.43 mmol/LHigh0.02 - 0.27 mmol/[facility] Health SystemInterpretation and review of laboratory resultsAbnoMemorial Health System Selby General HospitalThe beta-hydroxybutyrate test performance characteristics have been validated by [facility]. This test has not been approved by the FDA; however such approval is not necessary.[facility]. trachomatis and N. gonorrhoeae DNA REEMA+probe Nom (Unsp spec)on 08-15-2024. trachomatis rRNA REEMA+probe Ql (Unsp spec)NegativeNegativeUnThe Jewish HospitalInterpretation and review of laboratory resultsNormKnox Community HospitalN. gonorrhoeae DNA Probe+sig amp Ql (Unsp spec)Negative NegativeUnThe Jewish HospitalThe APTIMA Combo 2 assay is FDA- approved NAAT using target capture for the in [...] other sites are not validated for this method.[facility] HospitalUnProvidence Hospital. trachomatis rRNA REEMA+probe Ql (Unsp spec)NegativeNormal NegativeMckitrick HospitalComment on above:Order Comment: The APTIMA Combo 2 assay is FDA-approved NAAT using target capture for the in vitro qualitative detection and differentiation of ribosomal RNA (rRNA) for Chlamydia trachomatis and Neisseria gonorrhoeae testing on clinician- collected endocervical, PreservCyt solution liquid Pap specimens, vaginal, throat, rectal, and male urethral swab specimens; patient-collected vaginal swab specimens, and female and male urine specimens from symptomatic and asymptomatic individuals. Samples from all other sites are not validated for this method.Performed By: #### [id number] #### CARI Mark ([id number]) [facility] ([facility]) [address] [place], [place] [id number]. gonorrhoeae DNA Probe+sig amp Ql (Unsp spec)NegativeNormal NegativeMckitrick HospitalComment on above:Order Comment: The APTIMA Combo 2 assay is FDA-approved NAAT using target capture for the in vitro qualitative detection and differentiation of ribosomal RNA (rRNA) for Chlamydia trachomatis and Neisseria gonorrhoeae testing on clinician- collected endocervical, PreservCyt solution liquid Pap specimens, vaginal, throat, rectal, and male urethral swab specimens; patient-collected vaginal swab specimens, and female and male urine specimens from symptomatic and asymptomatic individuals. Samples from all other sites are not validated for this method.Performed By: #### [id number] #### CARI Mark ([id number]) [facility] ([facility]) [address] [place] [address] 42319LDE W Auto Differential panel (Bld)on [id number] (Bld) [#/Vol]0.02 10*3/[facility] CenterBasophils/100 WBC (Bld)0.2 %0.0 - 2.0 %[facility] HospitalEosinophils (Bld) [#/Vol]0 10*3/[facility] CenterEosinophils/100 WBC (Bld)0 %0.0 - 6.0 % [facility] HospitalErythrocyte distribution width (RBC) [Ratio] 14.3 %11.5 - 14.5 %[facility] HospitalHematocrit (Bld) [Volume fraction]30.4 %Low36.0 - 46.0 %[facility] HospitalHemoglobin (Bld) [Mass/Vol]10.9 g/dLLow12.0 - 16.0 g/dLUnThe Jewish HospitalImmature granulocytes (Bld) [#/Vol]0.08 10*3/uLUnThe Jewish HospitalImsaint mary's health center granulocytes/100 WBC (Bld)0.6 %0.0 - 0.9 %[facility] Comment on above:Immature Granulocyte Count (IG) includes promyelocytes, myelocytes and metamyelocytes but does not include bands. Percent differential counts (%) should be interpreted in the context of the absolute cell counts (cells/UL).Interpretation and review of laboratory resultsAbnormalUniOhioHealth Grady Memorial HospitalLymphocytes (Bld) [#/Vol]1.39 10*3/uLUnThe Jewish HospitalLymphocytes/100 WBC (Bld)10.8 %13.0 - 44.0 %[facility] HospitalH (RBC) [Entitic mass]29.6 pg26.0 - 34.0 pgUnBluffton HospitalHC (RBC) [Mass/Vol]35.9 g/dL32.0 - 36.0 g/dLUnBluffton HospitalV (RBC) [Entitic vol]83 fL80 - 100 fLUniOhioHealth Grady Memorial HospitalMonocytes (Bld) [#/Vol]0.62 10*3/uLUnThe Jewish Hospital Monocytes/100 WBC (Bld)4.8 %2.0 - 10.0 %[facility] Neutrophils (Bld) [#/Vol]10.8 10*3/uLCleveland Clinic [facility] Comment on above:Percent differential counts (%) should be interpreted in the context of the absolute cell counts (cells/uL).Neutrophils/100 WBC (Bld)83.6 % 40.0 - 80.0 %[facility] HospitalNucleated RBC/100 WBC (Bld) [Ratio]0 %[facility] HospitalPlatelets (Bld) [#/Vol]251 10*3/uL [facility] HospitalRB (Bld) [#/Vol]3.68 10*6/[facility] HospitalWBC (Bld) [#/Vol]12.9 10*3/Protestant HospitalUnThe Jewish HospitalChoriogonadotropin.beta subuniton 95-99-4949ONM.beta subunit [id number] m[IU]/mLHigh<5UnTrinity Health System East CampusComment on above:Order Comment: Total HCG measurement is performed using the Siemens AtellNextPotential immunoassay which detects intact HCG and free beta HCG subunit. This test is not indicated for use as a tumor marker. HCG testing is performed using a different test methodology at [facility] than other [facility]. Direct result comparison should only be made within the same method.Result Comment: Low-level positive HCG results can be seen in early , [...] production as the source of the HCG elevation.Performed By: #### [id number] #### CARI Mark ([id number]) [facility] ([facility]) [address] [place], [place] [address]Comprehensive metabolic 2000 panelon 97-23-2488Caczqrh BCP dye [Mass/Vol]3.6 g/dL3.4 - 5.0 g/dLUnThe Jewish HospitalALP [Catalytic activity/Vol]35 U/L33 - 110 U/[facility] SystemALT With P-5'-P [Catalytic activity/Vol]14 U/L7 - 45 U/[facility] SystemComment on above:Patients treated with Sulfasalazine may generate falsely decreased results for ALT.Anion gap [Moles/Vol]11 mmol/L10 - 20 mmol/L [facility] HospitalAST With P-5'-P [Catalytic activity/Vol]11 U/L9 - 39 U/[facility] SystemBilirubin [Mass/Vol]0.4 mg/dL0.0 - 1.2 mg/dLUnThe Jewish HospitalCalcium [Mass/Vol]9 mg/dL8.6 - 10.6 mg/dL [facility] HospitalChloride [Moles/Vol]103 mmol/L98 - 107 mmol/L [facility] HospitalCO2 [Moles/Vol]25 mmol/L21 - 32 mmol/L [facility] HospitalCreatinine [Mass/Vol]0.46 mg/dLLow0.50 - 1.05 mg/dLUnThe Jewish HospitaleGFR- PINFUniOhioHealth Grady Memorial HospitalComment on above:Calculations of estimated GFR are performed using the 2020 CKD-EPI Study Refit equation without therace variable for the IDMS- Traceable creatinine methods. https://jasn.asnjournals.org/content/early/ASN.5326039372 Glucose [Mass/Vol]107 mg/sPGyuh93 - 99 mg/dLUnThe Jewish Hospital Interpretation and review of laboratory resultsAbnormalUniOhioHealth Grady Memorial HospitalPotassium [Moles/Vol]3.3 mmol/LLow3.5 - 5.3 mmol/[facility] SystemProtein [Mass/Vol]5.8 g/dLLow6.4 - 8.2 g/dLUnThe Jewish HospitalSodium [Moles/Vol]136 mmol/L136 - 145 mmol/[facility] Health SystemUrea nitrogen [Mass/Vol]10 mg/dL6 - 23 mg/dLUnThe Jewish HospitalUnThe Jewish HospitalDRUG SCREEN,URINEon 08-15-2024 Amphetamines Screen Ql (U)NegativeNormalPresumptive NegativeUnTrinity Health System East CampusComment on above:Order Comment: Drug screen results are presumptive and should not be used to assesscompliance with prescribed medication. Contact the performing [facility] laboratoryto add-on definitive confirmatory testing if clinically indicated.Toxicology screening results are reported qualitatively. The concentration must???be greater than or equal to the cutoff to be reported as positive. The concentrationat which the screening test can detect an individual drug or metabolite varies.The absence of expected drug(s) and/or drug metabolite(s) may indicate non-compliance,inappropriate timing of specimen collection relative to drug administration, poor drugabsorption, diluted/adulterated urine, or limitations oftesting. For medical purposesonly; not valid for forensic use.Interpretive questions should be direc latisha to the laboratory medical directors.Result Comment: CUTOFF LEVEL: 500 NG/ML Cross-reactivity has been reported with high concentrations of the following drugs: buproprion, chloroquine, chlorpromazine, ephedrine, mephentermine, fenfluramine, phentermine, phenylpropanolamine, pseudoephedrine, and propranolol.Performed By: #### [id number] #### CARI Mark ([id number]) [facility] ([facility]) [address] [place] [address] 09417Wpwldcwlvbww Screen Ql (U)NegativeNormalPresumptive Negative [facility] HospitalComment on above:Order Comment: Drug screen results are presumptive and should not be used to assesscompliance with prescribed medication. Contact the performing [facility] laboratoryto add-on definitive confirmatory testing if clinically indicated.Toxicology screening results are reported qualitatively. The concentration must???be greater than or equal to the cutoff to be reported as positive. The concentrationat which the screening test can detect an individual drug or metabolite varies.The absence of expected drug(s) and/or drug metabolite(s) may indicate non- compliance,inappropriate timing of specimen collection relative to drug administration, poor drugabsorption, diluted/adulterated urine, or limitations oftesting. For medical purposesonly; not valid for forensic use.Interpretive questions should be directed to the laboratory medical directors.Result Comment: CUTOFF LEVEL: 200 NG/MLPerformed By: #### [id number] #### CARI Mark ([id number]) [facility] ([facility]) [address] [place] [address] 53621Dxkzflmvuaonceg Ql (U)NegativeNormalPresumptive Negative [facility] HospitalComment on above:Order Comment: Drug screen results are presumptive and should not be used to assesscompliance with prescribed medication. Contact the performing [facility] laboratoryto add-on definitive confirmatory testing if clinically indicated.Toxicology screening results are reported qualitatively. The concentration must???be greater than or equal to the cutoff to be reported as positive. The concentrationat which the screening test can detect an individual drug or metabolite varies.The absence of expected drug(s) and/or drug metabolite(s) may indicate non- compliance,inappropriate timing of specimen collection relative to drug administration, poor drugabsorption, diluted/adulterated urine, or limitations oftesting. For medical purposesonly; not valid for forensic use.Interpretive questions should be directed to the laboratory medical directors.Result Comment: CUTOFF LEVEL: 200 NG/MLPerformed By: #### [id number] #### CARI Mark ([id number]) [facility] ([facility]) [address] [place] [address] 95934Lfsihdmihhttqpe Screen Ql (U)NegativeNormalPresumptive NegativeMckitrick HospitalComment on above:Order Comment: Drug screen results are presumptive and should not be used to assesscompliance with prescribed medication. Contact the performing [facility] laboratoryto add-on definitive confirmatory testing if clinically indicated.Toxicology screening results are reported qualitatively. The concentration must???be greater than or equal to the cutoff to be reported as positive. The concentrationat which the screening test can detect an individual drug or metabolite varies.The absence of expected drug(s) and/or drug metabolite(s) may indicate non-compliance,inappropriate timing of specimen collection relative to drug administration, poor drugabsorption, diluted/adulterated urine, or limitations oftesting. For medical purposesonly; not valid for forensic use.Interpretive questions should be directed to the laboratory medical directors.Result Comment: CUTOFF LEVEL: 150 NG/MLPerformed By: #### [id number] #### CARI Mark ([id number]) [facility] ([facility]) [address] [place] [address] 71105Pqocgzdauuih Screen Ql (U)PositiveAbnormalPresumptive NegativeMckitrick HospitalComment on above:Order Comment: Drug screen results are presumptive and should not be used to assesscompliance with prescribed medication. Contact the performing [facility] laboratoryto add-on definitive confirmatory testing if clinically indicated.Toxicology screening results are reported qualitatively. The concentration must???be greater than or equal to the cutoff to be reported as positive. The concentrationat which the screening test can detect an individual drug or metabolite varies.The absence of expected drug(s) and/or drug metabolite(s) may indicate non-compliance,inappropriate timing of specimen collection relative to drug administration, poor drugabsorption, diluted/adulterated urine, or limitations oftesting. For medical purposesonly; not valid for forensic use.Interpretive questions should be directed to the laboratory medical directors.Result Comment: CUTOFF LEVEL: 50 NG/MLPerformed By: #### [id number] #### CARI Mark ([id number]) [facility] ([facility]) [address] [place], [place] [address]fentaNYL+Norfentanyl Screen Ql (U)NegativeNormalPresumptive NegativeMckitrick HospitalComment on above:Order Comment: Drug screen results are presumptive and should not be used to assesscompliance with prescribed medication. Contact the performing [facility] laboratoryto add-on definitive confirmatory testing if clinically indicated.Toxicology screening results are reported qualitatively. The concentration must???be greater than or equal to the cutoff to be reported as positive. The concentrationat which the screening test can detect an individual drug or metabolite varies.The absence of expected drug(s) and/or drug metabolite(s) may indicate non-compliance,inappropriate timing of specimen collection relative to drug administration, poor drugabsorption, diluted/adulterated urine, or limitations oftesting. For medical purposesonly; not valid for forensic use.Interpretive questions should be directed to the laboratory medical directors.Result Comment: CUTOFF LEVEL: 5 NG/MLPerformed By: #### [id number] #### CARI Mark ([id number]) [facility] ([facility]) [address] [place] [address] 78894Xazlybxwa Screen Ql (U)NegativeNormalPresumptive Negative [facility] HospitalComment on above:Order Comment: Drug screen results are presumptive and should not be used to assesscompliance with prescribed medication. Contact the performing [facility] laboratoryto add-on definitive confirmatory testing if clinically indicated.Toxicology screening results are reported qualitatively. The concentration must???be greater than or equal to the cutoff to be reported as positive. The concentrationat which the screening test can detect an individual drug or metabolite varies.The absence of expected drug(s) and/or drug metabolite(s) may indicate non- compliance,inappropriate timing of specimen collection relative to drug administration, poor drugabsorption, diluted/adulterated urine, or limitations oftesting. For medical purposesonly; not valid for forensic use.Interpretive questions should be directed to the laboratory medical directors.Result Comment: CUTOFF LEVEL: 150 NG/ML The metabolite T-tcaoi-wjrwhucadxkdue (LAAM) is not detected by this method in concentrations that would be found in the urine of patients on LAAM therapy.Performed By: #### [id number] #### CARI Mark ([id number]) [facility] ([facility]) [address] [place] [address] 91254Mwpzkjf Screen Ql (U)PositiveAbnormalPresumptive Negative [facility] HospitalComment on above:Order Comment: Drug screen results are presumptive and should not be used to assesscompliance with prescribed medication. Contact the performing [facility] laboratoryto add-on definitive confirmatory testing if clinically indicated.Toxicology screening results are reported qualitatively. The concentration must???be greater than or equal to the cutoff to be reported as positive. The concentrationat which the screening test can detect an individual drug or metabolite varies.The absence of expected drug(s) and/or drug metabolite(s) may indicate non- compliance,inappropriate timing of specimen collection relative to drug administration, poor drugabsorption, diluted/adulterated urine, or limitations oftesting. For medical purposesonly; not valid for forensic use.Interpretive questions should be directed to the laboratory medical directors.Result Comment: CUTOFF LEVEL: 300 NG/ML The opiate screen does not detect fentanyl, meperidine, or tramadol. Oxycodone is not consistently detected (refer to Oxycodone Screen, Urine result).Performed By: #### [id number] #### CARI Mark ([id number]) [facility] ([facility]) [address] [place] [address] 68278mkbAWFIVJ+oxyMORphone Screen Ql (U)NegativeNormalPresumptive NegativeMckitrick HospitalComment on above:Order Comment: Drug screen results are presumptive and should not be used to assesscompliance with prescribed medication. Contact the performing [facility] laboratoryto add-on definitive confirmatory testing if clinically indicated.Toxicology screening results are reported qualitatively. The concentration must???be greater than or equal to the cutoff to be reported as positive. The concentrationat which the screening test can detect an individual drug or metabolite varies.The absence of expected drug(s) and/or drug metabolite(s) may indicate non-compliance,inappropriate timing of specimen collection relative to drug administration, poor drugabsorption, diluted/adulterated urine, or limitations oftesting. For medical purposesonly; not valid for forensic use.Interpretive questions should be directed to the laboratory medical directors.Result Comment: CUTOFF LEVEL: 100 NG/ML This test will accurately detect both oxycodone and oxymorphone.Performed By: #### 95260-5 #### CARI Mark ([id number]) [facility] ([facility]) [address] [place] [address] 82596Sawjxozwyeamy Ql (U)NegativeNormalPresumptive Negative [facility] HospitalComment on above:Order Comment: Drug screen results are presumptive and should not be used to assesscompliance with prescribed medication. Contact the performing [facility] laboratoryto add-on definitive confirmatory testing if clinically indicated.Toxicology screening results are reported qualitatively. The concentration must???be greater than or equal to the cutoff to be reported as positive. The concentrationat which the screening test can detect an individual drug or metabolite varies.The absence of expected drug(s) and/or drug metabolite(s) may indicate non- compliance,inappropriate timing of specimen collection relative to drug administration, poor drugabsorption, diluted/adulterated urine, or limitations oftesting. For medical purposesonly; not valid for forensic use.Interpretive questions should be directed to the laboratory medical directors.Result Comment: CUTOFF LEVEL: 25 NG/ML Cross-reactivity has been reported with dextromethorphan.Performed By: #### [id number] #### CARI Mark ([id number]) [facility] ([facility]) [address] [place] [address] 85980Qikn Screen, Urineon 91-64-9723Ronityhfvcel Screen Ql (U) NegativePresumptive [facility] HospitalComment on above: CUTOFF LEVEL: 500 NG/ML Cross-reactivity has been reported with high concentrations of the following drugs: buproprion, chloroquine, chlorpromazine, ephedrine, mephentermine, fenfluramine, phentermine, phenylpropanolamine, pseudoephedrine, and propranolol. Barbiturates Screen Ql (U)NegativePresumptive [facility] on above:CUTOFF LEVEL: 200 NG/MLBenzodiazepines Ql (U)Negative Presumptive [facility] on above:CUTOFF LEVEL: 200 NG/MLBenzoylecgonine Screen Ql (U)NegativePresumptive Negative [facility] on above:CUTOFF LEVEL: 150 NG/ML Cannabinoids Screen Ql (U)PositiveAbnormalPresumptive [facility] on above:CUTOFF LEVEL: 50 NG/ML fentaNYL+Norfentanyl Screen Ql (U)NegativePresumptive [facility] on above:CUTOFF LEVEL: 5 NG/MLInterpretation and review of laboratory resultsAbBarberton Citizens HospitalMethadone Screen Ql (U)NegativePresumptive [facility] on above:CUTOFF LEVEL: 150 NG/ML The metabolite Z-myats-ycpduzitjpebtj (LAAM) is not detected by this method in concentrations that would be found in the urine of patients on LAAM therapy. Opiates Screen Ql (U)PositiveAbnormalPresumptive [facility] on above:CUTOFF LEVEL: 300 NG/ML The opiate screen does not detect fentanyl, meperidine, or tramadol. Oxycodone is not consistently detected (refer to Oxycodone Screen, Urine result). oxyCODONE+oxyMORphone Screen Ql (U)NegativePresumptive [facility] on above:CUTOFF LEVEL: 100 NG/ML This test will accurately detect both oxycodone and oxymorphone. Phencyclidine Ql (U)NegativePresumptive [facility] on above:CUTOFF LEVEL: 25 NG/ML Cross-reactivity has been reported with dextromethorphan. Drug screen results are presumptive and should not be used to assess compliance with prescribed medication. Contact the performing [facility] laboratory to add-on definitive confirmatory testing [...] be directed to the laboratory medical directors. [facility]EC 12 lead Ordered By: Lynsey Luna on [id number] Pewt79YEVErojnkvtkfMercy Health St. Anne Hospital Work Phone: [phone] Vljn20cjlnpeyRtxavttcuwFirelands [facility] Work Phone: [phone] Ieowbw269 [facility] Work Phone: [phone] Bbwtx624 [facility] Work Phone: PR Ndszacfu732 [facility] Work Phone: [phone] Ytjmd032 [facility] Work Phone: [phone] Wmsxv41klhlkVqwbwxocfrOhioHealth Grady Memorial Hospital Work Phone: [phone] Ojbsookw49 [facility] Work Phone: [phone] Pixtyuvt604 [facility] Work Phone: [phone] Calculation(Bazett)422 [facility] Work Phone: [phone] Rbhesxtltq921 [facility] Work Phone: [phone] Wiht61eyjeamrZlhcgfenexFirelands [facility] Work Phone: [phone] Byel68tioqqylDmuqckgykzFirelands Regional [facility] Work Phone: [phone] Dteild209 [facility] Work Phone: [phone] Kylx88NIFVbeffccukuAdams County Hospital Work Phone: [phone] Work Phone: ECG 12 leadon 67-49-2615Sgjtgo sinus rhythm Rightward axis Borderline ECG When compared with ECG of 13-AUG-2024 09:19, No significant change was found See ED provider note for full interpretation and clinical correlation Confirmed by Lynsey Luna ([id number]) on 08/15/2024 11:32:35 AMLynsey Flores APRN-SITE COORDINATOR - 08/15/2024 Normal sinus rhythm Rightward axis Borderline ECG When compared with ECG of 13-AUG-2024 09:19, No significant change was found See ED provider note for full interpretation and clinical correlation Confirmed by Lynsey Luna ([id number]) on 08/15/2024 11:32:35 AM [facility] Work Phone: ecG 12-LEADon 52-39-7867HWY 12-LEADVentricular Rate 70 Atrial Rate 70 P-R Interval 126 QRS Duration 72 Q-T Interval 386 QTC Calculation(Bazett) 416 P [place] 77 R [place] 88 T [place] 62 QRS Count 12 Q Onset 220 P Onset 157 P Offset 201 T Offset 413 QTC Fredericia 406 Diagnosis Normal sinus rhythm Normal ECG When compared with ECG of 14-AUG-2024 22:14, No significant change was found See ED provider note for full interpretation and clinical correlation Confirmed by Baylee Pizano ([id number]) on 08/17/2024 6:01:46 AMNormalUH [facility] HospitalExtra Urine Doran Tubeon 44-45-9893Gokev TubeHold for add-ons. [facility] HospitalComment on above:Auto resulted.[facility] HospitalHC ( test) Ql (U)Ordered By: Karis Newton on 81-86-3697Smvjjcsoqxipsq and review of laboratory resultsAbBarberton Citizens HospitalPre Test, UrPositiveAbBarberton Citizens HospitalUnThe Jewish HospitalHCG.beta subunit Qnon 08-15-2024 Interpretation and review of laboratory resultsAbBarberton Citizens HospitalTotal HCG measurement is performed using the Siemens Atellica immunoassay which detects intact HCG and free beta HCG subunit. This test is not indicated for use as a tumor marker. HCG testing is performed using a different test methodology at [facility] than other [facility]. Dir ect result comparison should only be made within the same method. [facility] HospitalUnThe Jewish HospitalHuman Chorionic Gonadotropin, Serum Quantitativeon 16-62-4082VXD.beta subunit Vi73416 m[IU]/mLHighNINFProMedica Defiance Regional HospitalComment on above:Low-level positive HCG results can be seen in early , in lilliam- or post-menopausal females due to normal pituitary HCG production, or with analytic interference. Repeat testing in 48-72 hourscan aid in assessing for as results should double in this time period. FSH measurement isrecommended in lilliam- or post-menopausal females as concurrent elevation of FSH can support pituitary production as the source of the HCG elevation.Lipaseon 81-14-3612Seejbm [Catalytic activity/Vol]16 U/L9 - 82 U/[facility] State Health SystemLipase [Catalytic activity/Vol]on 90-71-7410Voqoeddudtvgii and review of laboratory resultsNoMemorial Health System Selby General HospitalVenipuncture immediately after or during the administration of Metamizole may lead to falsely low results. Testing should be performed immediately prior to Metamizole dosing.[facility] HospitalMagnesiumon 53-57-7169Cxlgyqgwo [Mass/Vol]1.83 mg/dL1.60 - 2.40 mg/dLUnThe Jewish HospitalMagnesium [Mass/Vol]1.83 mg/dLNormal 1.60-2.40UnTrinity Health System East CampusComment on above:Order Comment: 2 hours after infusion complete.Performed By: #### [id number] #### CARI Mark ([id number]) [facility] ([facility]) [address] [place], [place] [address]No Panel Informationon 59-68-0046Ecrdovkcnfixld and review of laboratory resultsNoMemorial Health System Selby General HospitalUnThe Jewish HospitalUnThe Jewish HospitalTRANSTHORACIC ECHO (TTE) COMPLETEon 72-59-0530KKLMPQMROGGPT ECHO (TTE) [facility], [address] [place] [address] and TRANSTHORACIC ECHOCARDIOGRAM REPORT Patient Name: INDU Dorsey Physician: [id number] Zuleyka Gibbons MD Study Date: 08/15/2024 Ordering Provider: [id number] LENKA FUNGAbdulaziz MRN/PID: [id number] Fellow: Nurse: Date of /Age: 6 1995 Car Sales Associate: Isabella Tavarez years RDCS, RVT Gender assigned at F Additional Staff: : Height: 167.64 cm Admit Date: Weight: 52.62 kg Admission Status: Inpatient - Priority discharge BSA / BMI: 1.59 m2 / 18.72 kg/m2 Blood Pressure: 127/64 mmHg Department Location: [facility] Non Invasive Study Type: TRANSTHORACIC ECHO (TTE) COMPLETE Diagnosis/ICD: Chest pain, unspecified-R07.9 Indication: Chest pain. CPT Code: Echo Complete w Full Doppler-65510 Patient History: Pertinent History: 14 weeks . [...] LA Area A4C: 13.0 cm2 LA Major [place] A4C: 4.0 cm RIGHT ATRIUM: Normal Ranges: [...] Kai: 0.94 PulmV Sys Kai: 71.25 cm/s [id number] Zuleyka Gibbons MD Electronically signed on 08/15/2024 at 12:27:54 PM Final [facility] HealthTropinin I.cardiac panel High sensitivity methodon 14-00-5697Rwaqngzwkguqhl and review of laboratory resultsNoMemorial Health System Selby General HospitalLess than 99th percentile of normal range cutoff- [...] performed using a different testing methodology at [facility] than at other [facility]. Direct result comparisons should only be made within the same method. Salem City HospitalTroponin I, High Sensitivityon 75-05-5180Zqpliwtx I.cardiac panel High sensitivity method ng/L0 - 34 ng/[facility] State Health SystemUS Heart TransthoracicOrdered By: Zuleyka Gibbons on 69-26-4769Scmdqu Valve Area by Continuity of Peak Velocity2.08 re7KmjbdxwwseProMedica Defiance [facility] Hospital Work Phone: [phone] pk pfei9vgZoYxluxfphsmThe Jewish Hospital Work Phone: [phone] pk vel1.38 m/[facility] Work Phone: [phone] A4C EF63.9UnThe Jewish Hospital Work Phone: [phone] EF63 %[facility] Work Phone: [phone] cmProMedica Defiance Regional Hospital Work Phone: [phone] diam1.96 cmProMedica Defiance Regional Hospital Work Phone: [phone] E/A ratio2.36UnThe Jewish Hospital Work Phone: [phone] free wall pk S'14 cm/[facility] Work Phone: [phone] annular plane systolic excursion2.7 cm [facility] Work Phone: [phone] Work Phone: [phone] Heart Transthoracicon 08-15-2024 [facility], [address] [place] [address] and TRANSTHORACIC ECHOCARDIOGRAM REPORT Patient Name: INDU Dorsey Physician: [id number] Zuleyka Gibbons MD Study Date: 08/15/2024 Ordering Provider: [id number] LENKA SCHWARTZ MRN/PID: [id number] Fellow: Nurse: Date of /Age: 6 1995 / 28 Car Sales Associate: Isabella nelson RDCS, RVT Gender assigned at F Additional Staff: : Height: 167.64 cm Admit Date: Weight: 52.62 kg Admission Status: Inpatient - Priority discharge BSA / BMI: 1.59 m2 / 18.72 kg/m2 Blood Pressure: 127/64 mmHg Department Location: [facility] Non Invasive Study Type: TRANSTHORACIC ECHO (TTE) COMPLETE Diagnosis/ICD: Chest pain, unspecified-R07.9 Indication: Chest pain. CPT Code: Echo Complete w Full Doppler-02114 Patient History: Pertinent History: 14 weeks . [...] LA Area A4C: 13.0 cm2 LA Major [place] A4C: 4.0 cm RIGHT ATRIUM: Normal Ranges: [...] AoV Peak P.6 mmHg (<20mmHg) LVOT Max Kai (more content not included)...Zuleyka Hopson MD - 08/15/2024 [facility], [address] [place] [address] and TRANSTHORACIC ECHOCARDIOGRAM REPORT Patient Name: INDU JAMEEL Reading Physician: [id number] Zuleyka Gibbons MD Study Date: 08/15/2024 Ordering Provider: [id number] LENKA PLEITEZJEOVANNY MRN/PID: [id number] Fellow: Nurse: Date of /Age: 6 1995 Car Sales Associate: Isabella nelson RDCS, RVT Gender assigned at F Additional Staff: : Height: 167.64 cm Admit Date: Weight: 52.62 kg Admission Status: Inpatient - Priority discharge BSA / BMI: 1.59 m2 / 18.72 kg/m2 Blood Pressure: 127/64 mmHg Department Location: [facility] Non Invasive Study Type: TRANSTHORACIC ECHO (TTE) COMPLETE Diagnosis/ICD: Chest pain, unspecified-R07.9 Indication: Chest pain. CPT Code: Echo Complete w Full Doppler-79306 Patient History: Pertinent History: 14 weeks . [...] LA Area A4C: 13.0 cm2 LA Major [place] A4C: 4.0 cm RIGHT ATRIUM: Normal Ranges: [...] Kai: 0.94 PulmV Sys Kai: 71.25 cm/s [id number] Zuleyka Gibbons MD Electronically signed on 08/15/2024 at 12:27:54 PM Final [facility] Work Phone: us for pregnancyon . Single live intrauterine gestation corresponding to 15 [...] Leon Null 08/15/2024 2:58 AM Dictation workstation: [id number] MMODALInterpreted By: Leon Null and Dervishi Mario STUDY: US OB LIMITED 1+ FETUSES; 08/15/2024 2:14 am INDICATION: Signs/Symptoms:abdominal and chest pain during . COMPARISON: None. ACCESSION NUMBER(S): [id number] ORDERING CLINICIAN: LEÓN SPARROW TECHNIQUE: Multiple images were obtained. Transabdominal [...] identified. No abnormal fluid collections are noted. MMODALLeon Null MD - 08/15/2024 Interpreted By: Leon Null and Dervishi Mario STUDY: US OB LIMITED 1+ FETUSES; 08/15/2024 2:14 am INDICATION: Signs/Symptoms:abdominal and chest pain during . COMPARISON: None. ACCESSION NUMBER(S): [id number] ORDERING CLINICIAN: LEÓN SPARROW TECHNIQUE: Multiple images were obtained. Transabdominal [...] Leon Null 08/15/2024 2:58 AM Dictation workstation: [id number] [facility] Work Phone: Radiology Study observation (narrative)[facility] Work Phone: US for pregnancyOrdered By: Leon Null on 25-06-8667NiesgztqhzThe Jewish Hospital Work Phone: Urinalysis complete W Reflex Culture panel (U)on 64-78-1103Vhoiqtxmsp (U)ClearClearUnThe Jewish HospitalBilirubin (U) [Mass/Vol]NegativeNEGATIVE mg/dLUnThe Jewish HospitalColor (U) YellowLight-Yellow, Yellow, Dark-YellowUnThe Jewish Hospital Epithelial cells.squamous Auto (Urine sed) [#/Area]1-9 (SPARSE)Reference range not established. /HPFUnThe Jewish HospitalGlucose Auto test strip (U) [Mass/Vol]NormalNormal mg/dLUnThe Jewish HospitalInterpretation and review of laboratory resultsAbnormalUniversGreene County General HospitalKetones (U) [Mass/Vol]40 (2+)AbnormalNEGATIVE mg/dLUnThe Jewish Hospital Leukocyte esterase Auto test strip Ql (U)NegativeNEGATIVEUnThe Jewish HospitalMucus Auto (Urine sed) [#/Area]3+Reference range not established. /LPF [facility] HospitalNitrite Auto test strip Ql (U)NegativeNEGATIVE [facility] HospitalpH (U)6 [pH]5.0, 5.5, 6.0, 6.5, 7.0, 7.5, 8.0 [facility] HospitalProtein (U) [Mass/Vol]20 (TRACE)NEGATIVE, 10 (TRACE), 20 (TRACE) mg/dLUnThe Jewish HospitalRBC (U) [#/Vol] NegativeNEGATIVE mg/dLUnThe Jewish HospitalRB Auto (Urine sed) [#/Area]3-5NONE, 1-2, 3-5 /[facility] HospitalSpecific gravity (U) [Rel density]1.0231.005 - 1.035UnThe Jewish HospitalUrobilinogen (U) [Mass/Vol]NormalNormal mg/dLUnThe Jewish HospitalWBC Auto (Urine sed) [#/Area]5-26Mnoyahon9-2, NONE /[facility] CENTERUnCleveland Clinic Mercy HospitalAppearance (U)ClearNormalClearUnTrinity Health System East CampusComment on above:Performed By: #### 83005-7 #### CARI Mark ([id number]) [facility] ([facility]) [address] [place] [address] 63011Kdtgocgjd (U) [Mass/Vol]NegativeNormalNEGATIVEUnTrinity Health System East CampusComment on above:Performed By: #### 37925-5 #### CARI Mark ([id number]) [facility] ([facility]) [address] [place] [address] 24548Jcyxa (U)YellowNormalLight-Yellow, Yellow, Dark-Yellow [facility]rick HospitalComment on above:Performed By: #### 25174-4 #### CARI Mark ([id number]) [facility] ([facility]) [address] [place], [place] [address]Bpaoxmzdaq cells.squamous Auto (Urine sed) [#/Area]1-9 (SPARSE)NormalReference range not established.[facility]itrick HospitalComment on above:Performed By: #### 23040-5 #### CARI Mark ([id number]) [facility] ([facility]) [address] [place], [place] [address]Ucqtqkv Auto test strip (U) [Mass/Vol]NormalNormalNormal [facility] HospitalComment on above:Performed By: #### 01408-3 #### CARI Mark ([id number]) [facility] ([facility]) [address] [place] [address] 56083Daaznuy (U) [Mass/Vol]40 (2+)AbnormalNEGATIVEUnTrinity Health System East CampusComment on above:Performed By: #### 11189-2 #### CARI Mark ([id number]) [facility] ([facility]) [address] [place] [address] 63556Hcgyfworg esterase Auto test strip Ql (U)NegativeNormal NEGATIVEUnTrinity Health System East CampusComment on above:Performed By: #### 46248-1 #### CARI Mark ([id number]) [facility] ([facility]) [address] [place] [address] 69604Qismf Auto (Urine sed) [#/Area]3+ /LPFNormalReference range not established.[facility]itrick HospitalComment on above: Performed By: #### 41274-1 #### CARI Makr ([id number]) [facility] ([facility]) [address] [place] [address] 37684Ucyjtgv Auto test strip Ql (U)NegativeNormalNEGATIVE [facility] HospitalComment on above:Performed By: #### 35367-2 #### CARI aMrk ([id number]) [facility] ([facility]) [address] [place] [address] 92372sU (U)6.0 [pH]Normal5.0, 5.5, 6.0, 6.5, 7.0, 7.5, 8.0 [facility] HospitalComment on above:Performed By: #### 00548-1 #### CARI JACKSON L ([id number]) [facility] ([facility]) [address] [place] [address] 17595Skbhynt (U) [Mass/Vol]20 (TRACE)NormalNEGATIVE, 10 (TRACE), 20 (TRACE)[facility] HospitalComment on above: Performed By: #### 80096-7 #### CARI Mark ([id number]) [facility] ([facility]) [address] [place] [address] 78850MWO (U) [#/Vol]NegativeNormalNEGATIVEMckitrick HospitalComment on above:Performed By: #### 31666-7 #### CARI Mark ([id number]) [facility] ([facility]) [address] [place] [address] 15572LAT Auto (Urine sed) [#/Area]3-5NormalNONE, 1-2, 3-5 [facility] HospitalComment on above:Performed By: #### 00579-9 #### CARI Mark ([id number]) [facility] ([facility]) [address] [place] [address] 62284Fusuvura gravity (U) [Rel density]1.630Lhugml2.005-1.035 [facility] HospitalComment on above:Performed By: #### 84437-1 #### CARI Mark ([id number]) [facility] ([facility]) [address] [place] [address] 48451Ojhmkfflzxbc (U) [Mass/Vol]NormalNormalNormalUniversMagruder Memorial HospitalComment on above:Performed By: #### 55591-2 #### CARI Mark ([id number]) [facility] ([facility]) [address] [place] [address] 19893YZM Auto (Urine sed) [#/Area]2-10Fbetimeq4-7, NONEMckitrick HospitalComment on above:Performed By: #### 11245-9 #### CARI Mark ([id number]) [facility] ([facility]) [address] [place] [address] 22269TO ABDOMEN 1 VIEWon 68-82-5793ZL ABDOMEN 1 VIEWInterpreted By: Dennis Bobby and Ohs Zachary STUDY: XR ABDOMEN 1 VIEW; 08/15/2024 4:59 am INDICATION: Signs/Symptoms:abdominal pain. COMPARISON: None. ACCESSION NUMBER(S): [id number] ORDERING CLINICIAN: LENKA SCHWARTZ FINDINGS: There is a nonobstructive bowel gas pattern. No extraluminal or portal venous gas. Visualized soft tissues and osseous structures are unremarkable. The lung bases are clear. IMPRESSION: Nonobstructive bowel gas pattern. I personally reviewed the images/study and I agree with the findings as stated by Dr. Cesar Jordan. MACRO: none Signed by: Dennis Bobby 08/15/2024 6:40 AM Dictation workstation: [id number] HealthXR Abdomen Single viewon 71-46-8002Rgdxaszlxpmtpk bowel gas pattern. I personally reviewed the images/study and I agree with the findings as stated by Dr. Cesar Jordan. MACRO: none Signed by: Dennis Bobby 08/15/2024 6:40 AM Dictation workstation: [id number] MMODALInterpreted By: Dennis Bobby and Ohs Zachary STUDY: XR ABDOMEN 1 VIEW; 08/15/2024 4:59 am INDICATION: Signs/Symptoms:abdominal pain. COMPARISON: None. ACCESSION NUMBER(S): [id number] ORDERING CLINICIAN: LENKA SCHWARTZ FINDINGS: There is a nonobstructive bowel gas pattern. No extraluminal or portal venous gas. Visualized soft tissues and osseous structures are unremarkable. The lung bases are clear. Dennis Davis MD - 08/15/2024 Interpreted By: Dennis Bobby and Ohs Zachary STUDY: XR ABDOMEN 1 VIEW; 08/15/2024 4:59 am INDICATION: Signs/Symptoms:abdominal pain. COMPARISON: None. ACCESSION NUMBER(S): [id number] ORDERING CLINICIAN: LENKA SCHWARTZ FINDINGS: There is a nonobstructive bowel gas pattern. No extraluminal or portal venous gas. Visualized soft tissues and osseous structures are unremarkable. The lung bases are clear. IMPRESSION: Nonobstructive bowel gas pattern. I personally reviewed the images/study and I agree with the findings as stated by Dr. Cesar Jordan. MACRO: none Signed by: Dennis Bobby 08/15/2024 6:40 AM Dictation workstation: [id number] [facility] Work Phone: Radiology Study observation (narrative)[facility] Work Phone: XR Abdomen Single viewOrdered By: Dennis Bobby on 10-14-7634IpnzlpekmxThe Jewish Hospital Work Phone: BMPon 04-40-9536Flfkj gap [Moles/Vol]16 mmol/LNormal 6-16[facility] Rita'S Medical CenterComment on above:Performed By: #### [id number] #### [facility] [address] [place], [place] [address]TZX/Creat Ratio32 No McyngVreq22-71SdqronMercy Health St. Rita'S Medical Center Comment on above:Performed By: #### [id number] #### [facility] [address] [place], [place] [address]Xaylfth [Mass/Vol]9.6 mg/dLNormal8.9-11.1FBethesda North HospitalComment on above:Performed By: #### [id number] #### [facility] [address] [place], [place] [address]Wfembxfk [Moles/Vol]102 mmol/HYhzrme441-647JzfvrkMercy Health St. Rita'S Medical CenterComment on above:Performed By: #### [id number] #### [facility] [address] [place], [place] [address]KS2 [Moles/Vol]20 mmol/BSzf08-50TcnlrmMercy Health St. Rita'S Medical Center Comment on above:Performed By: #### [id number] #### [facility] [address] [place], [place] [address]Chbnoajsdn [Mass/Vol]0.4 mg/dLLow0.5-1.3FBethesda North HospitalComment on above:Performed By: #### [id number] #### [facility] [address] [place], [place] [address]Bwfujgh [Mass/Vol]152 mg/jTGidxoq51-876UuqzljMercy Health St. Rita'S Medical CenterComment on above:Performed By: #### [id number] #### [facility] [address] [place], [place] [address]Unovhvcgi [Moles/Vol]3.1 mmol/LLow3.5-5.3Fisher Saint Luke InstituteComment on above:Performed By: #### [id number] #### [facility] [address] [place], [place] [address]Ajsuhj [Moles/Vol]135 mmol/PJkgqsp330-376FtiuggMercy Health St. Rita'S Medical CenterComment on above:Performed By: #### [id number] #### [facility] [address] [place], [place] [address]Xblj nitrogen [Mass/Vol]13 mg/dLNormal5-21Mer[facility] St. Rita'S Medical CenterComment on above:Performed By: #### [id number] #### [facility] [address] [place], [place] [address]Ekcy hydroxybutyrate [Mass or moles/Vol]on 05-89-1460Zkly hydroxybutyrate [Moles/Vol]0.43 mmol/LHigh0.02-0.27UnTrinity Health System East CampusComment on above:Order Comment: The beta-hydroxybutyrate test performance characteristics have been validated by [facility]. This test has not been approved by the FDA; however such approval is not necessary.Performed By: #### 90001-4 #### CARI Mark ([id number]) [facility] ([facility]) [address] [place] [address] 21852FUT W Auto Differential panel (Bld)on 37-78-9326Gqioprfjl (Bld) [#/Vol]0.02 x10*3/uLNormal0.00-0.10UnTrinity Health System East CampusComment on above:Performed By: #### 75946-1 #### CARI Mark (51709) [facility] ([facility]) [address] [place] [address] 62374Rchdsngpa/100 WBC (Bld)0.2 %Normal0.0-2.0UnTrinity Health System East CampusComment on above:Performed By: #### 20674-6 #### CARI Mark (28031) [facility] ([facility]) [address] [place] [address] 21190Dlpphvehmsk (Bld) [#/Vol]0.00 x10*3/uLNormal0.00-0.70 [facility] HospitalComment on above:Performed By: #### 17334-6 #### CARI Mark ([id number]) [facility] ([facility]) [address] [place] [address] 53523Plpyduwccoq/100 WBC (Bld)0.0 %Normal0.0-6.0UnTrinity Health System East CampusComment on above:Performed By: #### 64026-2 #### CARI Mark ([id number]) [facility] ([facility]) [address] [place] [address] 90482Ajkhlgpjrgc distribution width (RBC) [Ratio]14.3 %Normal 11.5-14.5UnTrinity Health System East CampusComment on above:Performed By: #### 50902-9 #### CARI Mark ([id number]) [facility] ([facility]) [address] [place] [address] 16978Hacxcaemfb (Bld) [Volume fraction]30.4 %Low36.0-46.0 [facility] HospitalComment on above:Performed By: #### 38945-2 #### CARI Mark (61978) [facility] ([facility]) [address] [place] [address] 42702Qsgaingict (Bld) [Mass/Vol]10.9 g/dLLow12.0-16.0UnTrinity Health System East CampusComment on above:Performed By: #### 86749-6 #### CARI Mark ([id number]) [facility] ([facility]) [address] [place] [address] 43727Spklusjw granulocytes (Bld) [#/Vol]0.08 x10*3/uLNormal 0.00-0.70UnTrinity Health System East CampusComment on above:Performed By: #### 33488-1 #### CARI Mark ([id number]) [facility] ([facility]) [address] [place] [address] [place] [address]Skorrmyc granulocytes/100 WBC (Bld)0.6 %Normal0.0-0.9 [facility] HospitalComment on above:Result Comment: Immature Granulocyte Count (IG) includes promyelocytes, myelocytes and metamyelocytes but does not include bands. Percent differential counts (%) should be interpreted in the context of the absolute cell counts (cells/UL). Performed By: #### 46957-7 #### CARI Mark ([id number]) [facility] ([facility]) [id number] [place] [address] 78434Peivmnyuhsk (Bld) [#/Vol]1.39 x10*3/uLNormal1.20-4.80 [facility] HospitalComment on above:Performed By: #### 32928-7 #### CARI Mark ([id number]) [facility] ([facility]) [address] [place] [address] 58340Fhxiuxyzdbj/100 WBC (Bld)10.8 %Cwcjkv91.0-44.0UnTrinity Health System East CampusComment on above:Performed By: #### 50425-1 #### CARI Mark (74808) [facility] ([facility]) [address] [place] [address] 98929NEC (RBC) [Entitic mass]29.6 xdGgmjge08.0-34.0UnTrinity Health System East CampusComment on above:Performed By: #### 79422-8 #### CARI Mark (87348) [facility] ([facility]) [address] [place] [address] 23748RQCZ (RBC) [Mass/Vol]35.9 g/rCFkofuo40.0-36.0UnTrinity Health System East CampusComment on above:Performed By: #### 95205-1 #### CARI Mark (96779) [facility] ([facility]) [address] [place] [address] 87872NZS (RBC) [Entitic vol]83 tVIhdsaf58-420FhjlhgvgguTrinity Health System East CampusComment on above:Performed By: #### 40988-1 #### CARI Mark ([id number]) [facility] ([facility]) [address] [place], [place] [address]Ohuxlllzb (Bld) [#/Vol]0.62 x10*3/uLNormal0.10-1.00UnTrinity Health System East CampusComment on above:Performed By: #### [id number] #### CARI Mark ([id number]) [facility] ([facility]) [id number] [place] [address] 07609Jqdlnxsyz/100 WBC (Bld)4.8 %Normal2.0-10.0UnTrinity Health System East CampusComment on above:Performed By: #### 10069-1 #### CARI Mark ([id number]) [facility] ([facility]) [id number] [place] [address] 65160Mtfzzrogzog (Bld) [#/Vol]10.80 x10*3/uLHigh1.20-7.70 [facility] HospitalComment on above:Result Comment: Percent differential counts (%) should be interpreted in the context of the absolute cell counts (cells/uL).Performed By: #### 01382-5 #### CARI Mark ([id number]) [facility] ([facility]) [id number] [place] [address] 23102Aorqifmzsrm/100 WBC (Bld)83.6 %Ndmjbd37.0-80.0UnTrinity Health System East CampusComment on above:Performed By: #### 46415-4 #### CARI Mark ([id number]) [facility] ([facility]) [address] [place], [place] [address]Gmrroucbk RBC/100 WBC (Bld) [Ratio]0.0 /100 WBCsNormal0.0-0.0 [facility]rick HospitalComment on above:Performed By: #### 03257-2 #### CARI Mark ([id number]) [facility] ([facility]) [id number] [place] [address] 59741Ntkgsziyl (Bld) [#/Vol]251 x10*3/zUFjtayj285-518OhxcigkzesMckitrick HospitalComment on above:Performed By: #### 46147-5 #### CARI Mark ([id number]) [facility] ([facility]) [id number] [place] [address] 42974QVK (Bld) [#/Vol]3.68 x10*6/uLLow4.00-5.20Mckitrick HospitalComment on above:Performed By: #### 73225-3 #### CARI Mark ([id number]) [facility] ([facility]) [address] [place] [address] 87919EFY (Bld) [#/Vol]12.9 x10*3/uLHigh4.4-11.3Mckitrick HospitalComment on above:Performed By: #### 20122-2 #### CARI Mark ([id number]) [facility] ([facility]) [id number] [place] [address] 17438TRR w/ Auto Diffon [id number] Absolute0.0 E9/LNormal 0.0-0.2[facility] Luke InstituteComment on above:Performed By: #### [id number] #### [facility] [address], [place] [address]Nqvlcckkm/100 WBC (Bld)0.1 %Normal0.0-2.0[facility] Rita'S Medical CenterComment on above:Performed By: #### [id number] #### [facility] [address], [place] [address]Rqc Absolute0.0 E9/LNormal0.0-0.5[facility] Comment on above:Performed By: #### [id number] #### [facility] [address], [place] [address]Vixoduaruev/100 WBC (Bld)0.0 %Normal0.0-8.0[facility] Rita'S Medical CenterComment on above:Performed By: #### [id number] #### [facility] [address], [place] [address]Jxyjptjcxdt distribution width (RBC) [Ratio]15.0 %High10.9-14.[address] Rita'S Medical CenterComment on above:Performed By: #### [id number] #### [facility] [address], [place] [address]Utibwavxma (Bld) [Volume fraction]39.4 %Hefqao56.0-46.0[facility] Rita'S Medical CenterComment on above:Performed By: #### [id number] #### [facility] [address], [place] [address]Kknsxwsoif (Bld) [Mass/Vol]13.5 g/uURdmumg73.0-16.0[facility] Rita'S Medical CenterComment on above:Performed By: #### [id number] #### [facility] [address] [place] [address]Nrebo Absolute1.1 E9/LNormal1.0-4.0[facility] Comment on above:Performed By: #### [id number] #### [facility] [address] [place] [address]Paabcgpgjof/100 WBC (Bld)5.6 %Low14.0-50.0[facility] Rita'S Medical CenterComment on above:Performed By: #### [id number] #### [facility] [address], [place] [address]CYY (RBC) [Entitic mass]29.7 thRcrmrb49.0-34.0[facility] Rita'S Medical CenterComment on above:Performed By: #### [id number] #### [facility] [address], [place] [address]YXAC (RBC) [Mass/Vol]34.2 g/qOZdtroa14.4-36.0[facility] Rita'S Medical CenterComment on above:Performed By: #### [id number] #### [facility] [address], [place] [address]QZO (RBC) [Entitic vol]86.9 rPOivznj01.0-100.0[facility] Rita'S Medical CenterComment on above:Performed By: #### [id number] #### [facility] [address], [place] [address]Wjgx Absolute0.8 E9/LNormal0.2-1.0[facility] Comment on above:Performed By: #### [id number] #### [facility] [address], [place] [address]Dkqukdhwy/100 WBC (Bld)3.9 %Low4.0-14.0[facility] Rita'S Medical CenterComment on above:Performed By: #### [id number] #### [facility] [address], [place] [address]Dwgsxk Ducieoij90.3 E9/LHigh2.0-7.5FBethesda North Hospital Comment on above:Performed By: #### [id number] #### [facility] [address], [place] [address]Sevupj Auto90.4 %High36.0-75.0[facility] Comment on above:Performed By: #### [id number] #### [facility] [address], [place] [address]Ftctasms825.0 E9/KYpdsou041.0-500.0[facility] Comment on above:Performed By: #### [id number] #### [facility] [address], [place] [address]Gndndjry mean volume (Bld) [Entitic vol]8.5 fLNormal6.4-10.[address] Rita'S Medical CenterComment on above:Performed By: #### [id number] #### [facility] [address], [place] [address]SYS1.5 E12/LNormal4.3-5.9[facility] Rita'S Medical CenterComment on above:Performed By: #### [id number] #### [facility] [address], [place] [address]AQL69.2 E9/LHigh4.0-11.0[facility] InstituteComment on above:Result Comment: Peripheral smear review performed.Performed By: #### [id number] #### [facility] [address] [place], [place] [address]ENTSJKSLAGlarowq By: SYSTEM SYSTEM on [id number] Screen method >1000 ng/mL Ql (U)NEGATIVE 9 (08/14/24 8:12 AM)NormalNEGATIVERemisol ChemComment on above:Interpretive Data: Negative Cutoff: <1000 ng/mLBarbiturates Screen Ql (U)NEGATIVE 10 (08/14/24 8:12 AM)NormalNEGATIVERemisol ChemComment on above:Interpretive Data: Negative Cutoff: <200 ng/mLBenzodiazepines Ql (U)NEGATIVE 1 (08/14/24 8:12 AM)NormalNEGATIVERemisol ChemComment on above:Interpretive Data: Negative Cutoff: <200 ng/mLCannabinoids Screen Ql (U)POSITIVE 7, 8 *ABN* (08/14/24 8:12 AM)Invalid Interpretation CodeNEGATIVERemisol ChemComment on above:Result Comment: Result verified by repeat analysis, Unconfirmed by alternate method No Confirmation Requested by Physician Called to OB/Camronharesh HutsontInterpretive Data: Negative Cutoff: <50 ng/mLCocaine Ql (U)NEGATIVE 2 (08/14/24 8:12 AM)NormalNEGATIVERemisol ChemComment on above:Interpretive Data: Negative Cutoff: <300 ng/mLOpiates Screen Ql (U)POSITIVE 4, 5 *ABN* (08/14/24 8:12 AM)Invalid Interpretation CodeNEGATIVERemisol ChemComment on above:Result Comment: Result verified by repeat analysis, Unconfirmed by alternate method No Confirmation Requested by Physician Called to OB/Camron BurtInterpretive Data: Negative Cutoff: <300 ng/mL Phencyclidine Screen method >25 ng/mL Ql (U)NEGATIVE 6 (08/14/24 8:12 AM)NormalNEGATIVERemisol ChemComment on above:Interpretive Data: Negative Cutoff: <25 ng/mL These drug screen results are to be used for medical (i.e., treatment) purposes only. Unconfirmed drug screening results must not be used for non-medical purposes (e.g., employment testing, legal testing).U FentanylNEGATIVE 13 (08/14/24 8:12 AM)NormalNEGATIVERemisol ChemComment on above:Interpretive Data: Negative Cutoff: <5 ng/mL These drug screen results are to be used for medical (i.e., treatment) purposes only. Unconfirmed drug screening results must not be used for non-medical purposes (e.g., employment testing, legal testing).Albumin [Mass/Vol]4.4 g/dL Normal3.3 - 5.0 gm/dLRemisol ChemAlbumin/Globulin [Mass ratio]1.5 {ratio}Normal 1.1 - 2.2Remisol ChemALP [Catalytic activity/Vol]46 [iU]/eCznwdl09 - 98 Int._Unit/LRemisol ChemALT No additional P-5'-P [Catalytic activity/Vol]18 [iU]/dNormal6 - 46 Int._Unit/LRemisol ChemAnion gap [Moles/Vol]16 mmol/LNormal6 - 16 mEq/LRemisol ChemAST [Catalytic activity/Vol]17 [iU]/dNormal5 - 43 Int._Unit/LRemisol ChemBilirubin [Mass/Vol]0.5 mg/dLNormal0.0 - 1.1 mg/dLRemisol ChemBilirubin.direct [Mass/Vol]0.1 mg/dLNormal0.0 - 0.4 mg/dLRemisol Chem Bilirubin.indirect [Mass or moles/Vol]0.4 mg/dLNormal0.1 - 0.9 mg/dLRemisol Chem Calcium [Mass/Vol]9.6 mg/dLNormal8.9 - 11.1 mg/dLRemisol ChemChloride [Moles/Vol]102 mmol/YAbonzv324 - 111 mmol/LRemisol ChemCO2 [Moles/Vol]20 mmol/L Low21 - 31 mmol/LRemisol ChemCreatinine [Mass/Vol]0.4 mg/dLLow0.5 - 1.3 mg/dL Remisol ChemGFR/1.73 sq M.predicted MDRD (S/P/Bld) [Vol rate/Area]136 mL/min/1.73 v7Cdxcre>=59mL/min/1.73 w6Zmvfxwt ChemGlobulin (S) [Mass/Vol]2.9 g/dLNormal1.4 - 4.0 gm/dLRemisol ChemGlucose [Mass/Vol]152 mg/lAWcmtjx16 - 199 mg/dLRemisol ChemLipase [Catalytic activity/Vol]58 U/NAcmqwm54 - 58 unit/L Remisol ChemPotassium [Moles/Vol]3.1 mmol/LLow3.5 - 5.3 mmol/LRemisol Chem Protein [Mass/Vol]7.3 g/dLNormal6.0 - 7.8 gm/dLRemisol ChemSodium [Moles/Vol]135 mmol/VWpochv214 - 145 mmol/LRemisol ChemTroponin HS6.50 pg/mLLow10.10 - 27.10 pg/mLRemisol ChemComment on above:Interpretive Data: The 95% CI (Confidence Interval) PPV (Positive Predictive Value) for myocardial infarction in females is 38 pg/mL, in males 51 pg/mL. The results should be used in conjunction with clinical conditions of myocardial infarction. (Access High Sensitivity Troponin I Instructions For Use, Jade Saleem, October 2017)Urea nitrogen [Mass/Vol]13 mg/dLNormal5 - 21 mg/dLRemisol ChemUrea nitrogen/Creatinine [Mass ratio]32 mg/hdYbjh22 - 20Remisol ChemComprehensive metabolic 2000 panelon 64-93-5312Cwfblsx BCP dye [Mass/Vol]3.6 g/dLNormal3.4-5.0 [facility]rick HospitalComment on above:Performed By: #### 54084-5 #### CARI Mark ([id number]) [facility] ([facility]) [address] [place], [place] [address]SFZ [Catalytic activity/Vol]35 U/CJuvoez94-679JxspyuwycqTrinity Health System East CampusComment on above:Performed By: #### 44478-7 #### CARI Mark ([id number]) [facility] ([facility]) [address] [place], [place] [address]WHE With P-5'-P [Catalytic activity/Vol]14 U/LNormal7-45 [facility] HospitalComment on above:Result Comment: Patients treated with Sulfasalazine may generate falsely decreased results for ALT.Performed By: #### 79218-4 #### CARI Mark ([id number]) [facility] ([facility]) [address] [place], [place] [address]Sfvwi gap [Moles/Vol]11 mmol/FXptvjq40-88CucsmqlgtvTrinity Health System East CampusComment on above:Performed By: #### 04779-9 #### CARI Mark ([id number]) [facility] ([facility]) [id number] [place] [address]IEZ With P-5'-P [Catalytic activity/Vol]11 U/LNormal9-39 [facility] HospitalComment on above:Performed By: #### 34434-8 #### CARI Mark ([id number]) [facility] ([facility]) [id number] [place] [address]22[address]Dzteosuvi [Mass/Vol]0.4 mg/dLNormal0.0-1.2UnTrinity Health System East CampusComment on above:Performed By: #### 86789-8 #### CARI Mark ([id number]) [facility] ([facility]) [address] [place] [address]25[address]Cnvqgpc [Mass/Vol]9.0 mg/dLNormal8.6-10.6UnTrinity Health System East CampusComment on above:Performed By: #### 98884-8 #### CARI Mark ([id number]) [facility] ([facility]) [id number] [place] [address]46[address]Kcumwrfa [Moles/Vol]103 mmol/UElujmr39-171BhyjyfbglgTrinity Health System East CampusComment on above:Performed By: #### 07378-1 #### CARI Mark ([id number]) [facility] ([facility]) [id number] [place] [address]47[address]HJ2 [Moles/Vol]25 mmol/GQnqzst16-70PjxepbmafwTrinity Health System East CampusComment on above:Performed By: #### 44131-8 #### CARI Mark ([id number]) [facility] ([facility]) [address] [place], [place] [address]Xfcqcscpun [Mass/Vol]0.46 mg/dLLow0.50-1.05UnTrinity Health System East CampusComment on above:Performed By: #### 58504-7 #### CARI Mark ([id number]) [facility] ([facility]) [address] [place], [place] [address]HVJ/1.73 sq M.predicted MDRD (S/P/Bld) [Vol rate/Area] mL/min/{1.73_m2}Normal>60UnTrinity Health System East CampusComment on above:Result Comment: Calculations of estimated GFR are performed using the 2020 CKD-EPI Study Refit equation without the race variable for the IDMS-Traceable creatinine methods. https://jasn.asnjournals.org/content/early//ASN.8446756769Aexarckod By: #### 16592-5 #### CARI Mark ([id number]) [facility] ([facility]) [address] [place], [place] [address]Uuskknf [Mass/Vol]107 mg/yFAkuk37-88PrwbqivqsiTrinity Health System East CampusComment on above:Performed By: #### 56472-2 #### CARI Mark ([id number]) [facility] ([facility]) [address] [place], [place] [address]Axuvoobdz [Moles/Vol]3.3 mmol/LLow3.5-5.3Mckitrick HospitalComment on above:Performed By: #### 50554-5 #### CARI Mark ([id number]) [facility] ([facility]) [address] [place], [place] [address]Swdkvfa [Mass/Vol]5.8 g/dLLow6.4-8.2UnTrinity Health System East CampusComment on above:Performed By: #### 82304-3 #### CARI Mark ([id number]) [facility] ([facility]) [address] [place], [place] [address]Efbsok [Moles/Vol]136 mmol/INglmvr804-812YbplfevumyMckitrick HospitalComment on above:Performed By: #### 24209-1 #### CARI GUZMANMOTZER L ([id number]) [facility] ([facility]) [address] [place], [place] [address]Gtmc nitrogen [Mass/Vol]10 mg/dLNormal6-23Mckitrick HospitalComment on above:Performed By: #### 59710-8 #### CARI GUZMANMOTZER L ([id number]) [facility] ([facility]) [address] [place], [place] [address]GRM 12-LEADon 34-39-4385CQQ 12-LEADVentricular Rate 82 Atrial Rate 82 P-R Interval 118 QRS Duration 70 Q-T Interval 362 QTC Calculation(Bazett) 422 P [place] 78 R [place] 93 T [place] 46 QRS Count 14 Q Onset 220 P Onset 161 P Offset 204 T Offset 401 QTC Fredericia 401 Diagnosis Normal sinus rhythm Rightward axis Borderline ECG When compared with ECG of 13-AUG-2024 09:19, No significant change was found See ED provider note for full interpretation and clinical correlation Confirmed by Lynsey Luna ([id number]) on 08/15/2024 11:32:35 [facility] CenterED Note-Physicianon [id number] Note-PhysicianED Note-Physician Basic Information Time Seen: Bk Garduno DO 08/14/2024 02:41 Chief Complaint Pt. reports N/V since this AM. Pt. states she went to [place] ED this AM and then f/u with AJ Meade and now presents with contin. N/V. Pt. reports hemorrhage in June and states she was admitted for 3 days. Pt. 14 weeks . History of Present Illness 28-year-old female to the emergency department chief complaint of nausea vomiting and chest pain. Symptoms been ongoing since June. She reports that she has been admitted for this. She reports she has every day chest pain associate with vomiting. No diarrhea. She is currently 14 weeks . She reports she was seen by both her OB and at an outside emergency department for this today. Review of Systems A 10 point review of systems is negative except as noted above. Medical and Surgical History: Reviewed and noted Social history: Lives at home Tobacco: Denies Physical Exam Vitals & Measurements T: 37.1 ???C(Tympanic) HR: 86(Monitored) RR: 17 BP: 128/88 SpO2: 96% HT: 167 cm WT: 53 kg BMI: 19 VITALS: I have reviewed the triage vital signs. GENERAL: Well developed, well appearing adult in no acute distress. NEURO: Alert and oriented. Moves all extremities. Face is symmetric and expressive. EYES: PERRL. No scleral icterus or conjunctival injection. No discharge. HENT: Normocephalic, atraumatic. Hearing is grossly intact. Nares grossly patent and without discharge. Mucous membranes moist. NECK: No JVD. Patient moves neck without restriction. CARDIO: Rhythm regular. Normal rate. No murmur, rub, or gallop. Pulses equal bilaterally in the upper and lower extremity. No lower extremity edema. PULM: Lungs clear to auscultation in all dave. No wheezes, rales, or rhonchi. No conversational dyspnea. No splinting, stridor, or accessory muscle use. GI/: Abdomen is soft and non-tender. Normoactive bowel sounds. EXTREMITIES: Symmetric muscle bulk. No joint swelling. No clubbing, cyanosis, or deformity. SKIN: Warm and dry. Normal turgor. No rash or lesions appreciated. PSYCH: Mood, affect, and interaction is appropriate to the setting. Procedure Heart Score for Major Cardiac Event History: Example factors for history - pattern of chest pain, onset, duration, relation with exercise, stress or cold, localization, concomitant symptoms. reaction to sublingual nitrates, [] Highly suspicious +2 [] Moderately suspicious +1 [x] Slightly suspicious 0 EKG: [] Significant ST-Depression +2 [] Non specific repolarization disturbance +1 [x] Normal 0 Age: [] >= 65 +2 [] 45-65 + 1 [x] <45 0 Risk Factors: (HLD, HTN, DM, Cigarette Smoking, Pos Family Hx, Obesity) [] >3 risk factors or hx of atherosclerotic disease + 2 [] 1-2 risk factors + 1 [x] No risk factors known 0 Troponin: [] >= 3X normal + 2 [] 1-3X normal + 1 [x] <= Normal 0 [x] 0-3 Points 0.9 - 1.7% risk of major adverse cardiac event in 6 weeks [] 4-6 Points 12-16.6% risk of major adverse cardiac event in 6 weeks [] 7-10 Points 50-65% risk of major adverse cardiac event in 6 weeks [] 0-3 Points with 2 sets of negative cardiac markers <1% risk of major adverse cardiac event in30 days. Medical Decision Making 28-year-old female to the emergency department with chief complaint of vomiting. Vital stable, the patient is afebrile. Basic labs are ordered. She reports Dilaudid and Phenergan worked for her. Fluids were ordered. Lab work reviewed and noted. EKG without acute changes. Troponin negative. She refused chest x-ray as she just had one at another hospital. IV potassium replacement is ordered. Care was signed out to Dr. Pina with K infusions and PO challenge pending. Assessment/Plan Acute hypokalemia (E87.6: Hypokalemia) Acute vomiting (R11.10: Vomiting, unspecified) Orders: famotidine, 20 mg = 2 mL, Soln-IV, IV Push, Once, Stop date 08/14/24 2:56:00 EDT, STAT, Start date 08/14/24 2:56:00 EDT, Infuse over 2 minute(s), 08/14/24 2:56:00 EDT HYDROmorphone, 0.5 mg = 0.5 mL, Injection, IV Push, Once, Stop date 08/14/24 2:56:00 EDT, STAT, Start date 08/14/24 2:56:00 EDT, 08/14/24 2:56:00 EDT HYDROmorphone, 0.5 mg = 0.5 mL, Injection, IV Push, Once, Stop date 08/14/24 4:45:00 EDT, STAT, Start date 08/14/24 4:45:00 EDT, 08/14/24 4:45:00 EDT hyoscyamine, 0.125 mg = 1 tab(s), Tab, SubLingual, Once, Stop date 08/14/24 5:46:00 EDT, STAT, Start date 08/14/24 5:46:00 EDT, 08/14/24 5:46:00 EDT Lactated Ringers Injection 1,000 mL, 1,000 mL, IV, 999 mL/hr, STAT, Start date 08/14/24 3:52:00 EDT, 1 hour(s), Total volume (mL): 1,000, 53 kg, 1.57, m2 magnesium sulfate + Generic Diluent 50 mL, 2 gram = 50 mL, IV Piggyback, Once, Stop date 08/14/24 4:19:00 EDT, STAT, Start date 08/14/24 4:19:00 EDT, 25 mL/hr, Infuse ove (more content not included)...[facility] Comment on above:Result Comment: Electronically Signed By: Silvana Lizama, Boo Briceno\.br\Date and Time Signed: 08/14/2510:44 EDTED Note-PhysicianED Note-Physician Basic Information Time Seen: Bk Garduno DO 08/14/2024 02:41 Chief Complaint Pt. reports N/V since this AM. Pt. states she went to [place] ED this AM and then f/u with AJ Meade and now presents with contin. N/V. Pt. reports hemorrhage in June and states she was admitted for 3 days. Pt. 14 weeks . History of Present Illness 28-year-old female to the emergency department chief complaint of nausea vomiting and chest pain. Symptoms been ongoing since June. She reports that she has been admitted for this. She reports she has every day chest pain associate with vomiting. No diarrhea. She is currently 14 weeks . She reports she was seen by both her OB and at an outside emergency department for this today. Review of Systems A 10 point review of systems is negative except as noted above. Medical and Surgical History: Reviewed and noted Social history: Lives at home Tobacco: Denies Physical Exam Vitals & Measurements T: 37.1 ???C(Tympanic) HR: 86(Monitored) RR: 17 BP: 128/88 SpO2: 96% HT: 167 cm WT: 53 kg BMI: 19 VITALS: I have reviewed the triage vital signs. GENERAL: Well developed, well appearing adult in no acute distress. NEURO: Alert and oriented. Moves all extremities. Face is symmetric and expressive. EYES: PERRL. No scleral icterus or conjunctival injection. No discharge. HENT: Normocephalic, atraumatic. Hearing is grossly intact. Nares grossly patent and without discharge. Mucous membranes moist. NECK: No JVD. Patient moves neck without restriction. CARDIO: Rhythm regular. Normal rate. No murmur, rub, or gallop. Pulses equal bilaterally in the upper and lower extremity. No lower extremity edema. PULM: Lungs clear to auscultation in all dave. No wheezes, rales, or rhonchi. No conversational dyspnea. No splinting, stridor, or accessory muscle use. GI/: Abdomen is soft and non-tender. Normoactive bowel sounds. EXTREMITIES: Symmetric muscle bulk. No joint swelling. No clubbing, cyanosis, or deformity. SKIN: Warm and dry. Normal turgor. No rash or lesions appreciated. PSYCH: Mood, affect, and interaction is appropriate to the setting. Procedure Heart Score for Major Cardiac Event History: Example factors for history - pattern of chest pain, onset, duration, relation with exercise, stress or cold, localization, concomitant symptoms. reaction to sublingual nitrates, [] Highly suspicious +2 [] Moderately suspicious +1 [x] Slightly suspicious 0 EKG: [] Significant ST-Depression +2 [] Non specific repolarization disturbance +1 [x] Normal 0 Age: [] >= 65 +2 [] 45-65 + 1 [x] <45 0 Risk Factors: (HLD, HTN, DM, Cigarette Smoking, Pos Family Hx, Obesity) [] >3 risk factors or hx of atherosclerotic disease + 2 [] 1-2 risk factors + 1 [x] No risk factors known 0 Troponin: [] >= 3X normal + 2 [] 1-3X normal + 1 [x] <= Normal 0 [x] 0-3 Points 0.9 - 1.7% risk of major adverse cardiac event in 6 weeks [] 4-6 Points 12-16.6% risk of major adverse cardiac event in 6 weeks [] 7-10 Points 50-65% risk of major adverse cardiac event in 6 weeks [] 0-3 Points with 2 sets of negative cardiac markers <1% risk of major adverse cardiac event in30 days. Medical Decision Making 28-year-old female to the emergency department with chief complaint of vomiting. Vital stable, the patient is afebrile. Basic labs are ordered. She reports Dilaudid and Phenergan worked for her. Fluids were ordered. Lab work reviewed and noted. EKG without acute changes. Troponin negative. She refused chest x-ray as she just had one at another hospital. IV potassium replacement is ordered. Care was signed out to Dr. Pina with K infusions and PO challenge pending. Assessment/Plan Acute hypokalemia (E87.6: Hypokalemia) Acute vomiting (R11.10: Vomiting, unspecified) Orders: famotidine, 20 mg = 2 mL, Soln-IV, IV Push, Once, Stop date 08/14/24 2:56:00 EDT, STAT, Start date 08/14/24 2:56:00 EDT, Infuse over 2 minute(s), 08/14/24 2:56:00 EDT HYDROmorphone, 0.5 mg = 0.5 mL, Injection, IV Push, Once, Stop date 08/14/24 2:56:00 EDT, STAT, Start date 08/14/24 2:56:00 EDT, 08/14/24 2:56:00 EDT HYDROmorphone, 0.5 mg = 0.5 mL, Injection, IV Push, Once, Stop date 08/14/24 4:45:00 EDT, STAT, Start date 08/14/24 4:45:00 EDT, 08/14/24 4:45:00 EDT hyoscyamine, 0.125 mg = 1 tab(s), Tab, SubLingual, Once, Stop date 08/14/24 5:46:00 EDT, STAT, Start date 08/14/24 5:46:00 EDT, 08/14/24 5:46:00 EDT Lactated Ringers Injection 1,000 mL, 1,000 mL, IV, 999 mL/hr, STAT, Start date 08/14/24 3:52:00 EDT, 1 hour(s), Total volume (mL): 1,000, 53 kg, 1.57, m2 magnesium sulfate + Generic Diluent 50 mL, 2 gram = 50 mL, IV Piggyback, Once, Stop date 08/14/24 4:19:00 EDT, STAT, Start date 08/14/24 4:19:00 EDT, 25 mL/hr, Infuse ove (more content not included)...[facility] Comment on above:Result Comment: Electronically Signed By: Bk Garduno DO\Date and Time Signed: 08/14/24 06:20 EDTExtra Blueon [id number] Collected PlasmaYesInvalid Interpretation [facility] CenterComment on above:Performed By: #### [id number] #### [facility] [address], [place] [address]Llm panel (BldV)on [id number] gap 4 (BldV) [Moles/Vol]8 mmol/LLow10.0 - 25.0 mmol/[facility] SystemBase excess Calc (BldV) [Moles/Vol]3.3 mmol/LHigh-2.0 - 3.0 mmol/[facility] SystemCalcium.ionized (BldV) [Moles/Vol]1.22 mmol/L1.10 - 1.33 mmol/L [facility] HospitalChloride (BldV) [Moles/Vol]103 mmol/L98 - 107 mmol/[facility] SystemCO2 (BldV) [Partial pressure]36 mm[Hg]Low [facility] HospitalGlucose [Mass/Vol]108 mg/cZShfj77 - 99 mg/dL [facility] HospitalHCO3 (Bld) [Moles/Vol]26.8 mmol/LHigh22.0 - 26.0 mmol/[facility] SystemHematocrit Est (Bld) [Volume fraction]35 %Low36.0 - 46.0 %[facility] HospitalHemoglobin (Bld) [Mass/Vol]11.5 g/dLLow12.0 - 16.0 g/dLProMedica Defiance Regional HospitalInhaled oxygen icoiuoizuaxvx90 %[facility] HospitalInterpretation and review of laboratory resultsAbnormalUniversGreene County General HospitalLactate (BldV) [Moles/Vol]0.7 mmol/L0.4 - 2.0 mmol/[facility] Oxygen (BldV) [Partial pressure]86 mm[Hg][facility] Oxygen saturation in Venous blood98 %High45 - 75 %[facility] HospitalOxyhemoglobin (BldV) [Mass fraction]94.8 %High45.0 - 75.0 %[facility] HospitalpH (BldV)7.48 [pH]High7.33 - 7.43 pHUnThe Jewish HospitalPotassium (BldV) [Moles/Vol]3.4 mmol/LLow3.5 - 5.3 mmol/[facility] SystemSodium (BldV) [Moles/Vol]134 mmol/XHwl220 - 145 mmol/L [facility] HospitalUnThe Jewish HospitalAnion gap 4 (BldV) [Moles/Vol]8.0 mmol/LLow10.0-25.0[facility]rick HospitalComment on above:Performed By: #### 91501-5 #### CARI Mark ([id number]) [facility] ([facility]) [id number] [place] [address] 16877Xqmt excess Calc (BldV) [Moles/Vol]3.3 mmol/LHigh-2.0-3.0 [facility] HospitalComment on above:Performed By: #### 65352-4 #### CARI Mark ([id number]) [facility] ([facility]) [id number] [place] [address] 63022Rzpddnd.ionized (BldV) [Moles/Vol]1.22 mmol/LNormal1.10-1.33 [facility] HospitalComment on above:Performed By: #### 86769-9 #### CARI Mark ([id number]) [facility] ([facility]) [id number] [place] [address] 65825Bwvqvkxm (BldV) [Moles/Vol]103 mmol/MKhyrfa23-965BuwktntjitMckitrick HospitalComment on above:Performed By: #### 38165-1 #### CARI Mark ([id number]) [facility] ([facility]) [id number] [place] [address] 64721WX4 (BldV) [Partial pressure]36 mm MeKsc45-76MbkguljcxhTrinity Health System East CampusComment on above:Performed By: #### 09315-7 #### CARI Mark ([id number]) [facility] ([facility]) [id number] [place] [address] 81346Rfketik [Mass/Vol]108 mg/uOJumv38-93JbvjmyerdlTrinity Health System East CampusComment on above:Performed By: #### 56771-8 #### CARI Mark ([id number]) [facility] ([facility]) [id number] [place] [address] 95498BXM8 (Bld) [Moles/Vol]26.8 mmol/LHigh22.0-26.0UnTrinity Health System East CampusComment on above:Performed By: #### 90580-0 #### CARI Mark ([id number]) [facility] ([facility]) [address] [place] [address] 43882Yzxxalyqnb Est (Bld) [Volume fraction]35.0 %Low36.0-46.0 [facility] HospitalComment on above:Performed By: #### 60617-7 #### CARI Mark ([id number]) [facility] ([facility]) [address] [place] [address] 23510Vymosrnmvf (Bld) [Mass/Vol]11.5 g/dLLow12.0-16.0M[facility]itrick HospitalComment on above:Performed By: #### 95656-4 #### CARI Mark ([id number]) [facility] ([facility]) [address] [place] [address] 68392Joquhfr oxygen qkaedgxonbufe81 %NormalUnTrinity Health System East CampusComment on above:Performed By: #### 40816-3 #### CARI Mark ([id number]) [facility] ([facility]) [address] [place] [address] 38986Dmbaysq (BldV) [Moles/Vol]0.7 mmol/LNormal0.4-2.0M[facility]itrick HospitalComment on above:Performed By: #### 70679-8 #### CARI Mark ([id number]) [facility] ([facility]) [address] [place] [address] 95069Yiqwqi (BldV) [Partial pressure]86 mm PfYpfr07-79HcmmtxtvioMckitrick HospitalComment on above:Performed By: #### 13774-5 #### CARI Mark ([id number]) [facility] ([facility]) [address] [place] [address] 70563Ktqwxk saturation in Venous blood98 %Vmgu18-64DpyrqkilotMckitrick HospitalComment on above:Performed By: #### 15820-8 #### CARI Mark ([id number]) [facility] ([facility]) [address] [place], [place] [address]Sfyuolbbfowkr (BldV) [Mass fraction]94.8 %High45.0-75.0 [facility]itrick HospitalComment on above:Performed By: #### 67511-1 #### CARI Mark ([id number]) [facility] ([facility]) [id number] [place] [address] 97438oG (BldV)7.48 [pH]High7.33-7.43UnTrinity Health System East CampusComment on above:Performed By: #### 82134-3 #### CARI Mark ([id number]) [facility] ([facility]) [id number] [place] [address] 92634Qvlewnlem (BldV) [Moles/Vol]3.4 mmol/LLow3.5-5.3UnTrinity Health System East CampusComment on above:Performed By: #### 28318-6 #### CARI Mark ([id number]) [facility] ([facility]) [id number] [place] [address] 71387Ufjgth (BldV) [Moles/Vol]134 mmol/QPfu982-217OvxzlluqfvTrinity Health System East CampusComment on above:Performed By: #### 11875-0 #### CARI Mark ([id number]) [facility] ([facility]) [id number] [place] [address] 90296GNWKCSWQNKPbulmnx By: SYSTEM SYSTEM on 08-14-2024 Basophils/100 WBC (Bld)0.1 %Normal0.0 - 2.0 %Remisol HemeBasophils/Leukocytes Auto (Bld) [Pure # fraction]0.0 E9/LNormal0.0 - 0.2 E9/LRemisol HemeEosinophils (Bld) [#/Vol]0.0 E9/LNormal0.0 - 0.5 E9/LRemisol HemeEosinophils/100 WBC (Bld) 0.0 %Normal0.0 - 8.0 %Remisol HemeErythrocyte distribution width (RBC) [Ratio] 15.0 %High10.9 - 14.2 %Remisol HemeHematocrit (Bld) [Volume fraction]39.4 % Ankbsv38.0 - 46.0 %Remisol HemeHemoglobin (Bld) [Mass/Vol]13.5 g/eMWzttzc51.0 - 16.0 gm/dLRemisol HemeLymphocytes (Bld) [#/Vol]1.1 E9/LNormal1.0 - 4.0 E9/L Remisol HemeLymphocytes/100 WBC (Bld)5.6 %Low14.0 - 50.0 %Remisol HemeMCH (RBC) [Entitic mass]29.7 aaKmldbu20.0 - 34.0 pgRemisol HemeMCHC (RBC) [Mass/Vol]34.2 g/wSOscqer29.4 - 36.0 gm/dLRemisol HemeMCV (RBC) [Entitic vol]86.9 cLLnrylo45.0 - 100.0 fLRemisol HemeMonocytes (Bld) [#/Vol]0.8 E9/LNormal0.2 - 1.0 E9/LRemisol HemeMonocytes/100 WBC (Bld)3.9 %Low4.0 - 14.0 %Remisol HemeNeutrophils (Bld) [#/Vol]18.3 E9/LHigh2.0 - 7.5 E9/LRemisol HemeNeutrophils/100 WBC (Bld)90.4 % High36.0 - 75.0 %Remisol HemePlatelet mean volume (Bld) [Entitic vol]8.5 fL Normal6.4 - 10.8 fLRemisol HemePlatelets (Bld) [#/Vol]319.0 E9/THlrhms945.0 - 500.0 E9/LRemisol HemeRBC (Bld) [#/Vol]4.5 E12/LNormal4.3 - 5.9 E12/LRemisol HemeWBC corrected for nucl RBC Auto (Bld) [#/Vol]20.2 E9/LHigh4.0 - 11.0 E9/L Rem[facility] HemeComment on above:Result Comment: Peripheral smear review performed. Hep Func Panelon [id number] [Mass/Vol]4.4 g/dLNormal3.3-5.0[facility] Rita'S Medical CenterComment on above:Performed By: #### [id number] #### [facility] [address], [place] [address]Izinync/Globulin [Mass ratio]1.5 {ratio}Normal1.1-2.2FBethesda North HospitalComment on above:Performed By: #### [id number] #### [facility] [address], [place] [address]Wtr Phos46 Int._Unit/TFengcd85-64CyoljxMercy Health St. Rita'S Medical Center Comment on above:Performed By: #### [id number] #### [facility] [address], [place] [address]YDF33 Int._Unit/LNormal6-46[facility] Rita'S Medical CenterComment on above:Performed By: #### [id number] #### [facility] [address], [place] [address]MJF60 Int._Unit/LNormal5-43[facility] Rita'S Medical CenterComment on above:Performed By: #### [id number] #### [facility] [address], [place] [address]Hcvx Direct0.1 mg/dLNormal0.0-0.4FBethesda North Hospital Comment on above:Performed By: #### [id number] #### [facility] [address], [place] [address]Fgop Indirect0.4 mg/dLNormal0.1-0.9[facility] Comment on above:Performed By: #### [id number] #### [facility] [address], [place] [address]Wwtf Total0.5 mg/dLNormal0.0-1.1FBethesda North Hospital Comment on above:Performed By: #### [id number] #### [facility] [address], [place] [address]Bhcjerfu (S) [Mass/Vol]2.9 g/dLNormal1.4-4.0[facility] Rita'S Medical CenterComment on above:Performed By: #### [id number] #### [facility] [address], [place] [address]Eehzsry [Mass/Vol]7.3 g/dLNormal6.0-7.8[facility] Rita'S Medical CenterComment on above:Performed By: #### [id number] #### [facility] [address], [place] [address]Usvpbwtvp Clinical Summaryon [id number] Clinical SummaryInpatient Clinical Summary [address] [address] Clinical Summary Person Information Name: INDU [facility] Age: 28 Years : 1995 Sex: Female PCP: Yasmin WELCH DO Marital Status: Phone: [phone] Race: White Ethnicity: Non- or Language: Nauruan Visit Id: Visit Reason: Abdominal pain; Back pain; Vomiting; Nausea; N/V/D/FEVER - 14 WEEKS Speciality: Acuity: Ante Enc Type: Observation Med Service: Obstetrics Arrival: 08/14/2024 01:36:38 Discharge: 08/14/2024 19:55:00 Dispo Type: Home (Routine DC) Address: [address] [place] [id number] Provider Notes: Diagnosis: Acute hypokalemia; Acute vomiting Problems Active Smoker (07/03/2024) Esophagitis Abnormal CT of the abdomen Visceral hypersensitivity syndrome Stress-related physiological response affecting medical condition Miscarriage Seasonal allergic rhinitis Sciatica Prolactinoma Pain in pelvis (09/25/2022) Malignant tumor of cervix Prolactin level above reference range (05/28/2023) History of laparoscopy Heartburn Fatigue Gastritis (07/20/2023) Endometriosis (clinical) (03/25/2020) Disorder of pituitary gland Abnormal uterine bleeding. 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 Chronic rhinitis Chronic vaginitis (03/25/2020) Depressive disorder (03/25/2020) Weight loss Asthma Bipolar disorder Nausea and vomiting Asthma Scoliosis vocal cord dysfunction Smoking Status: Current Every Day Smoker Functional Status: Sensory Deficits: History of Falls: Mobility Assistance Prior to Admission: ADLs: Current Level of Assistance for Self-Care/Mobility: Cognitive Status: Oriented x 3 Allergies No Known Allergies No Known Medication Allergies Laboratory or Other Results This Visit (last charted value for your 08/14/2024 visit) Hematology 08/14/2024 2:20 AM Basophil Auto: 0.1 % -- Normal range between ( 0.0 and 2.0 ) Eos Auto: 0.0 % -- Normal range between ( 0.0 and 8.0 ) Hct: 39.4 % -- Normal range between ( 34.0 and 46.0 ) HGB: 13.5 gm/dL -- Normal range between ( 12.0 and 16.0 ) Lymph Auto: 5.6 % -- Normal range between ( 14.0 and 50.0 ) RBC: 4.5 E12/L -- Normal range between ( 4.3 and 5.9 ) RDW: 15.0 % -- Normal range between ( 10.9 and 14.2 ) MCH: 29.7 pg -- Normal range between ( 27.0 and 34.0 ) MCHC: 34.2 gm/dL -- Normal range between ( 31.4 and 36.0 ) MCV: 86.9 fL -- Normal range between ( 80.0 and 100.0 ) [place] Auto: 3.9 % -- Normal range between ( 4.0 and 14.0 ) MPV: 8.5 fL -- Normal range between ( 6.4 and 10.8 ) Neutro Auto: 90.4 % -- Normal range between ( 36.0 and 75.0 ) Platelet: 319.0 E9/L -- Normal range between ( 150.0 and 500.0 ) WBC: 20.2 E9/L -- Normal range between ( 4.0 and 11.0 ) [place] Absolute: 0.8 E9/L -- Normal range between ( 0.2 and 1.0 ) Eos Absolute: 0.0 E9/L -- Normal range between ( 0.0 and 0.5 ) Basophil Absolute: 0.0 E9/L -- Normal range between ( 0.0 and 0.2 ) Neutro Absolute: 18.3 E9/L -- Normal range between ( 2.0 and 7.5 ) Lymph Absolute: 1.1 E9/L -- Normal range between ( 1.0 and 4.0 ) Urinalysis 08/14/2024 6:19 PM U SG Automated: 1.015 -- Normal range between ( 1.003 and 1.040 ) 08/14/2024 8:12 AM UA Hyal Cast: 0-3 graded/LPF UA Bili: Negative mg/dL UA Color: Yellow UA Glucose: Trace mg/dL UA Ketones: 3+ mg/dL UA Leuk Est: Negative Campos/uL UA Mucous: 2+ graded/LPF UA Nitrite: Negative mg/dL UA Protein: 1+ mg/dL UA RBC: 0-3 graded/HPF UA Squam Epithelial: 5-8 graded/HPF UA Urobilinogen: Negative mg/dL UA WBC: 0-5 graded/HPF UA Spec Desc: Clean Catch UA Blood: Negative mg/dL UA Clarity: Clear UA pH: 6.0 -- Normal range between ( 5.0 and 9.0 ) UA Spec Grav: 1.033 -- Normal range between ( 1.005 and 1.030 ) Chemistry 08/14/2024 8:12 AM U Benzodia Scr: NEGATIVE U Cocaine Scr: NEGATIVE U Opiate Scr: POSITIVE U PCP Scr: NEGATIVE U Cannab Scr: POSITIVE U Amph Scr: NEGATIVE U Shannen Scr: NEGATIVE U Fentanyl: NEGATIVE 08/14/2024 2:20 AM Creatinine: 0.4 mg/dL -- Normal range between ( 0.5 and 1.3 ) A/G Ratio: 1.5 -- Normal range between ( 1.1 and 2.2 ) BUN/Creat Ratio: 32 -- Normal range between ( 10 and 20 ) AGAP: 16 mEq/L -- Normal range between ( 6 and 16 ) Albumin Lvl: 4.4 gm/dL -- Normal range between ( 3.3 and 5.0 ) Alk Phos: 46 Int._Unit/L -- Normal range between ( 21 and 98 ) ALT: 18 Int._Unit/L -- Normal range between ( 6 and 46 ) AST: 17 Int._Unit/L -- Normal range between ( 5 and 43 ) Bili Direct: 0.1 mg/dL -- Normal range between ( 0.0 and 0.4 ) Bili Total: 0.5 mg/dL -- Normal range between ( 0.0 and 1.1 (more content not included)...NormalMercy Health St. Rita'S Medical CenterInpatient Clinical SummaryInpatient Clinical Summary [address] [address] Clinical Summary Person Information Name: INDU [facility] Age: 28 Years : 1995 Sex: Female PCP: Yasmin WELCH DO Marital Status: Phone: [phone] Race: White Ethnicity: Non- or Language: Nauruan Visit Id: Visit Reason: Abdominal pain; Back pain; Vomiting; Nausea; N/V/D/FEVER - 14 WEEKS Speciality: Acuity: Ante Enc Type: Observation Med Service: Obstetrics Arrival: 08/14/2024 01:36:38 Discharge: Dispo Type: Address: [address] [place] [id number] Provider Notes: Diagnosis: Acute hypokalemia; Acute vomiting Problems Active Smoker (07/03/2024) Esophagitis Abnormal CT of the abdomen Visceral hypersensitivity syndrome Stress-related physiological response affecting medical condition Miscarriage Seasonal allergic rhinitis Sciatica Prolactinoma Pain in pelvis (09/25/2022) Malignant tumor of cervix Prolactin level above reference range (05/28/2023) History of laparoscopy Heartburn Fatigue Gastritis (07/20/2023) Endometriosis (clinical) (03/25/2020) Disorder of pituitary gland Abnormal uterine bleeding. 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 Chronic rhinitis Chronic vaginitis (03/25/2020) Depressive disorder (03/25/2020) Weight loss Asthma Bipolar disorder Nausea and vomiting Asthma Scoliosis vocal cord dysfunction Smoking Status: Current Every Day Smoker Functional Status: Sensory Deficits: History of Falls: Mobility Assistance Prior to Admission: ADLs: Current Level of Assistance for Self-Care/Mobility: Cognitive Status: Oriented x 3 Allergies No Known Allergies No Known Medication Allergies Laboratory or Other Results This Visit (last charted value for your 08/14/2024 visit) Hematology 08/14/2024 2:20 AM Basophil Auto: 0.1 % -- Normal range between ( 0.0 and 2.0 ) Eos Auto: 0.0 % -- Normal range between ( 0.0 and 8.0 ) Hct: 39.4 % -- Normal range between ( 34.0 and 46.0 ) HGB: 13.5 gm/dL -- Normal range between ( 12.0 and 16.0 ) Lymph Auto: 5.6 % -- Normal range between ( 14.0 and 50.0 ) RBC: 4.5 E12/L -- Normal range between ( 4.3 and 5.9 ) RDW: 15.0 % -- Normal range between ( 10.9 and 14.2 ) MCH: 29.7 pg -- Normal range between ( 27.0 and 34.0 ) MCHC: 34.2 gm/dL -- Normal range between ( 31.4 and 36.0 ) MCV: 86.9 fL -- Normal range between ( 80.0 and 100.0 ) [place] Auto: 3.9 % -- Normal range between ( 4.0 and 14.0 ) MPV: 8.5 fL -- Normal range between ( 6.4 and 10.8 ) Neutro Auto: 90.4 % -- Normal range between ( 36.0 and 75.0 ) Platelet: 319.0 E9/L -- Normal range between ( 150.0 and 500.0 ) WBC: 20.2 E9/L -- Normal range between ( 4.0 and 11.0 ) [place] Absolute: 0.8 E9/L -- Normal range between ( 0.2 and 1.0 ) Eos Absolute: 0.0 E9/L -- Normal range between ( 0.0 and 0.5 ) Basophil Absolute: 0.0 E9/L -- Normal range between ( 0.0 and 0.2 ) Neutro Absolute: 18.3 E9/L -- Normal range between ( 2.0 and 7.5 ) Lymph Absolute: 1.1 E9/L -- Normal range between ( 1.0 and 4.0 ) Urinalysis 08/14/2024 8:12 AM UA Hyal Cast: 0-3 graded/LPF UA Bili: Negative mg/dL UA Color: Yellow UA Glucose: Trace mg/dL UA Ketones: 3+ mg/dL UA Leuk Est: Negative Campos/uL UA Mucous: 2+ graded/LPF UA Nitrite: Negative mg/dL UA Protein: 1+ mg/dL UA RBC: 0-3 graded/HPF UA Squam Epithelial: 5-8 graded/HPF UA Urobilinogen: Negative mg/dL UA WBC: 0-5 graded/HPF UA Spec Desc: Clean Catch UA Blood: Negative mg/dL UA Clarity: Clear UA pH: 6.0 -- Normal range between ( 5.0 and 9.0 ) UA Spec Grav: 1.033 -- Normal range between ( 1.005 and 1.030 ) Chemistry 08/14/2024 8:12 AM U Benzodia Scr: NEGATIVE U Cocaine Scr: NEGATIVE U Opiate Scr: POSITIVE U PCP Scr: NEGATIVE U Cannab Scr: POSITIVE U Amph Scr: NEGATIVE U Shannen Scr: NEGATIVE U Fentanyl: NEGATIVE 08/14/2024 2:20 AM Creatinine: 0.4 mg/dL -- Normal range between ( 0.5 and 1.3 ) A/G Ratio: 1.5 -- Normal range between ( 1.1 and 2.2 ) BUN/Creat Ratio: 32 -- Normal range between ( 10 and 20 ) AGAP: 16 mEq/L -- Normal range between ( 6 and 16 ) Albumin Lvl: 4.4 gm/dL -- Normal range between ( 3.3 and 5.0 ) Alk Phos: 46 Int._Unit/L -- Normal range between ( 21 and 98 ) ALT: 18 Int._Unit/L -- Normal range between ( 6 and 46 ) AST: 17 Int._Unit/L -- Normal range between ( 5 and 43 ) Bili Direct: 0.1 mg/dL -- Normal range between ( 0.0 and 0.4 ) Bili Total: 0.5 mg/dL -- Normal range between ( 0.0 and 1.1 ) CO2: 20 mmol/L -- Normal range between ( 21 and 31 ) Glucose Lvl: 152 mg/dL -- Normal range between ( 55 and 199 ) Li (more content not included)...NormalMercy Health St. Rita'S Medical CenterInpatient Patient Summaryon [id number] Patient SummaryInpatient Patient Summary [place] [address] Patient Discharge Instructions PERSON INFORMATION Name: INDU ST Date of : 1995 Current Date: 08/14/2024 20:12:22 PHYSICIANS Admitting Physician: Lucina ELLISON, Saundra Peace Primary Care Physician: Yasmin WELCH DO PCP Phone Number: [phone] Comment: Discharge Diagnosis: Acute hypokalemia; Acute vomiting Condition at Discharge: Unchanged INDU ST has been given the following list of follow-up instructions, prescriptions, and patient education materials: PATIENT FOLLOW-UP INFORMATION Diet: Activity: Wound Care Instructions: Remove Your Dressing IN: Days Call Your Doctor For: IF UNABLE TO CONTACT YOUR PHYSICIAN AND YOU FEEL IT IS AN EMERGENCY, GO TO THE NEAREST EMERGENCY ROOM OR CALL 911 Home Treatment: Devices/Equipment: Special Services: Additional Instructions: Physician to provide the following pending test results: None Follow up: With: Address: When: [facility], [address] [place] [address] , [place] [address] Business (1) In 12 days 08/26/2024 Comments: Call for any problems. In the event that this physician does not participate in your insurance network, please consult with your insurance company to find a nearby participating provider. Comment: ALMA ROSA Nichole ERICA LYNN, have received the attached patient education materials/instructions and have verbalized understanding. Patient Signature Date Clinican/Nurse Signature Date MEDICATION LIST Medications to Continue with No Changes Other Medications famotidine (famotidine 20 mg Tab) 1 Tablets By Mouth 2 times a day. Refills: 0. Last Dose: Next Dose: metoclopramide (Reglan 5 mg Tab) 1 Tablets By Mouth 4 times a day. Refills: 0. Last Dose: Next Dose: Misc Prescription (Boost/Ensure) 0 twice a day (before meals). 8oz BID x 2-4 weeks. Disp #24 (twenty-four). Refills: 0. Last Dose: Next Dose: multivitamin, ( 19 ([place])) Oral. Last Dose: Next Dose: naloxone (naloxone 4 mg/0.1 mL nasal spray) 4 Milligram Nasal Inhalation As Directed. for suspectedoverdose symptoms. Refills: 0. Last Dose: Next Dose: olanzapine (olanzapine 2.5 mg Tab) 1 Tablets By Mouth every 6 hours. Last Dose: Next Dose: omega-3 polyunsaturated fatty acids (Fish Oil) 500 Milligram By Mouth every day. Last Dose: Next Dose: ondansetron (Zofran 8 mg Tab) 1 Tablets By Mouth every 8 hours. Last Dose: Next Dose: ondansetron (Zofran ODT 4 mg Tab-Dis) 1 Tablets By Mouth every 6 hours. Refills: 0. Last Dose: Next Dose: oxycodone (oxyCODONE 5 mg Cap) 1 Capsules By Mouth every 12 hours as needed for pain. Refills: 0. Last Dose: Next Dose: pantoprazole (Protonix 40 mg Tab-DR) 1 Tablets By Mouth every day. Refills: 0. Last Dose: Next Dose: polyethylene glycol 3350 (MiraLax 3350 Oral Pwdr for Recon 249 gram) 17 Gram By Mouth every day. Refills: 0. Last Dose: Next Dose: quetiapine (SEROquel 50 mg ER Tab) 1 Tablets By Mouth 2 times a day. Last Dose: Next Dose: sucralfate (Carafate 1 g/10 mL Susp-Oral) 10 Milliliter By Mouth four times a day (before meals andat bedtime). Refills: 0. Last Dose: Next Dose: PATIENT EDUCATION INFORMATION Instructions: Cyclic Vomiting Syndrome, Adult Cyclic vomiting syndrome (CVS) is a condition that causes episodes of severe nausea and vomiting. It can last for hours or even days. Attacks may occur several times a month or several times a year. Between episodes of CVS, you may be otherwise healthy. What are the causes? The cause of this condition is not known. Although many of the episodes can happen for no obvious reason, you may have specific CVS triggers. Episodes may be triggered by: ??? An infection, especially colds and the flu. ??? Emotional stress, including excitement or anxiety about finances, relationships, or moving. ??? Certain foods or beverages, such as chocolate, cheese, alcohol, and food additives. ??? Food allergies. ??? Motion sickness. ??? Eating a large meal before bed. ??? Being very tired. ??? Being overheated. ??? Menstruation. ??? Long-term cannabis use. What increases the risk? You are more likely to de (more content not included)...[facility] [address] [address] Patient Discharge Instructions PERSON INFORMATION Name: INDU ST Date of : 1995 Current Date: 08/14/2024 19:02:29 PHYSICIANS Admitting Physician: Saundra Verdugo MD Primary Care Physician: Yasmin WELCH DO PCP Phone Number: [phone] Comment: Discharge Diagnosis: Acute hypokalemia; Acute vomiting Condition at Discharge: INDU ST has been given the following list of follow-up instructions, prescriptions, and patient education materials: PATIENT FOLLOW-UP INFORMATION Diet: Activity: Wound Care Instructions: Remove Your Dressing IN: Days Call Your Doctor For: IF UNABLE TO CONTACT YOUR PHYSICIAN AND YOU FEEL IT IS AN EMERGENCY, GO TO THE NEAREST EMERGENCY ROOM OR CALL 911 Home Treatment: Devices/Equipment: Special Services: Additional Instructions: Physician to provide the following pending test results: Follow up: With: Address: When: [facility], [address] [place] [address] [place] [address] Business (1) In 12 days 08/26/2024 Comments: Call for any problems. In the event that this physician does not participate in your insurance network, please consult with your insurance company to find a nearby participating provider. Comment: ALMA ROSA Nichole ERICA LYNN, have received the attached patient education materials/instructions and have verbalized understanding. Patient Signature Date Clinican/Nurse Signature Date MEDICATION LIST Medications to Continue with No Changes Other Medications famotidine (famotidine 20 mg Tab) 1 Tablets By Mouth 2 times a day. Refills: 0. Last Dose: Next Dose: metoclopramide (Reglan 5 mg Tab) 1 Tablets By Mouth 4 times a day. Refills: 0. Last Dose: Next Dose: Misc Prescription (Boost/Ensure) 0 twice a day (before meals). 8oz BID x 2-4 weeks. Disp #24 (twenty-four). Refills: 0. Last Dose: Next Dose: multivitamin, ( 19 ([place])) Oral. Last Dose: Next Dose: naloxone (naloxone 4 mg/0.1 mL nasal spray) 4 Milligram Nasal Inhalation As Directed. for suspectedoverdose symptoms. Refills: 0. Last Dose: Next Dose: olanzapine (olanzapine 2.5 mg Tab) 1 Tablets By Mouth every 6 hours. Last Dose: Next Dose: omega-3 polyunsaturated fatty acids (Fish Oil) 500 Milligram By Mouth every day. Last Dose: Next Dose: ondansetron (Zofran 8 mg Tab) 1 Tablets By Mouth every 8 hours. Last Dose: Next Dose: ondansetron (Zofran ODT 4 mg Tab-Dis) 1 Tablets By Mouth every 6 hours. Refills: 0. Last Dose: Next Dose: oxycodone (oxyCODONE 5 mg Cap) 1 Capsules By Mouth every 12 hours as needed for pain. Refills: 0. Last Dose: Next Dose: pantoprazole (Protonix 40 mg Tab-DR) 1 Tablets By Mouth every day. Refills: 0. Last Dose: Next Dose: polyethylene glycol 3350 (MiraLax 3350 Oral Pwdr for Recon 249 gram) 17 Gram By Mouth every day. Refills: 0. Last Dose: Next Dose: quetiapine (SEROquel 50 mg ER Tab) 1 Tablets By Mouth 2 times a day. Last Dose: Next Dose: sucralfate (Carafate 1 g/10 mL Susp-Oral) 10 Milliliter By Mouth four times a day (before meals andat bedtime). Refills: 0. Last Dose: Next Dose: PATIENT EDUCATION INFORMATION Instructions: Cyclic Vomiting Syndrome, Adult Cyclic vomiting syndrome (CVS) is a condition that causes episodes of severe nausea and vomiting. It can last for hours or even days. Attacks may occur several times a month or several times a year. Between episodes of CVS, you may be otherwise healthy. What are the causes? The cause of this condition is not known. Although many of the episodes can happen for no obvious reason, you may have specific CVS triggers. Episodes may be triggered by: ??? An infection, especially colds and the flu. ??? Emotional stress, including excitement or anxiety about finances, relationships, or moving. ??? Certain foods or beverages, such as chocolate, cheese, alcohol, and food additives. ??? Food allergies. ??? Motion sickness. ??? Eating a large meal before bed. ??? Being very tired. ??? Being overheated. ??? Menstruation. ??? Long-term cannabis use. What increases the risk? You are more likely to develop this cond (more content not included)...Normal [facility] Medical CenterLipase Levelon 27-16-9396Yiazyk Lvl58 unit/LNormal 13-58[facility] Medical CenterComment on above:Performed By: #### [id number] #### [facility] [address] [place] [address]Acaxsvjzukxqyoj lipaseon 93-02-0741Eywnvm [Catalytic activity/Vol]16 U/LNormal9-82[facility] Comment on above:Order Comment: Venipuncture immediately after or during the administration of Metamizole may lead to falsely low results. Testing should be performed immediately prior to Metamizole dosing.Performed By: #### [id number] #### CARI Mark ([id number]) [facility] ([facility]) [address] [place], [place] [address]Rrzmwgxhpi 21-51-6993Wjlpawoy HS6.50 pg/mLLow10.10-27.[address] [facility]'S Medical CenterComment on above:Result Comment: The 95% CI (Confidence Interval) PPV (Positive Predictive Value) for myocardial infarction in females is 38 pg/mL, in males 51 pg/mL. The results should be used in conjunction with clinical conditions of myocardial infarction. (Access High Sensitivity Troponin I Instructions For Use, Beyond the Rack, October 2017)Performed By: #### [id number] #### [facility] [address], [place] [address]Wjqromdu I.cardiac panelon 70-47-6877Cygkfyeh I.cardiac panel High sensitivity method<2Hkfdkd5-41TzmvarvwpvM[facility] Comment on above:Order Comment: Less than 99th percentile of normal range [...] performed using a different testing methodology at [facility] than at other [facility]. Direct result comparisons should only be made within the same method.Performed By: #### [id number] #### CARI Mark ([id number]) [facility] ([facility]) [address] [place], [place] [address]O Drug Screenon 08-14-2024U Amph ScrNegativeNormalNEGATIVE [facility]S Medical CenterComment on above:Result Comment: Negative Cutoff: <1000 ng/mLPerformed By: #### [id number] #### [facility] [address] [facility], [place] [address]B Shannen ScrNegativeNormalNEGATIVEMercy Health St. [facility] Center Comment on above:Result Comment: Negative Cutoff: <200 ng/mLPerformed By: #### [id number] #### [facility] [address] [facility], [place] [address]I Benzodia ScrNegativeNormalNEGSelect Medical Specialty Hospital [facility] Comment on above:Result Comment: Negative Cutoff: <200 ng/mLPerformed By: #### [id number] #### [facility] [address] [facility], [place] [address]U Cocaine ScrNegativeNormalNEGSelect Medical Specialty Hospital [facility] Comment on above:Result Comment: Negative Cutoff: <300 ng/mLPerformed By: #### [id number] #### [facility] [address] [facility], [place] [address]L FentanylNegativeNormalNEGSelect Medical Specialty Hospital [facility] Comment on above:Result Comment: Negative Cutoff: <5 ng/mL These drug screen results are to be used for medical (i.e., treatment) purposes only. Unconfirmed drug screening results must not be used for non-medical purposes (e.g., employment testing, legal testing).Performed By: #### [id number] #### [facility] [address] [facility], [place] [address]B PCP ScrNegativeNormalNEGATIVEMercy Health St. [facility] Comment on above:Result Comment: Negative Cutoff: <25 ng/mL These drug screen results are to be used for medical (i.e., treatment) purposes only. Unconfirmed drug screening results must not be used for non-medical purposes (e.g., employment testing, legal testing).Performed By: #### [id number] #### [facility] [address] [facility], [place] [address]Q Cannab ScrPositiveAbnormalNEGATIVEMercy Health St. [facility] Comment on above:Result Comment: Result verified by repeat analysis, Unconfirmed by alternate method No Confirmation Requested by Physician Called to OB/[place] Negative Cutoff: <50 ng/mLPerformed By: #### [id number] #### [facility] [address], [place] [address]X Opiate ScrPositiveAbnormalNEGATIVEMercy Health St. [facility] Comment on above:Result Comment: Result verified by repeat analysis, Unconfirmed by alternate method No Confirmation Requested by Physician Called to OB/[place] Negative Cutoff: <300 ng/mLPerformed By: #### [id number] #### [facility] [address], [place] [address]U SG Autoon 08-14-2024U SG Automated1.603Fvceze0.003-1.[address] [facility]'S Medical CenterComment on above:Performed By: #### [id number] #### [facility] [address], [place] [address]QV with Cult Rflxon 21-16-7214Kswhu (U)YellowNormalYellowMercy Health St. Rita'S Medical CenterComment on above:Result Comment: Microscopic readings are only performed on those samples that meet specific criteria set forth by [facility].Performed By: #### [id number] #### [facility] [address], [place] [address]Krlhkpi Ql (U)3+ mg/dLAbnormalNegativeMercy Health St. Rita'S Medical CenterComment on above:Performed By: #### [id number] #### [facility] [address], [place] [address]UO BloodNegativeNormalNegAvita Health System Ontario Hospital Comment on above:Performed By: #### [id number] #### [facility] [address] [place] [address]KW ClarityClearNormalClearMercy Health [address] Rita'S Medical CenterComment on above:Performed By: #### [id number] #### [facility] [address] [place] [address]LF GlucoseTraceAbnormalNegativeMercy Health St. [facility] Comment on above:Performed By: #### [id number] #### [facility] [address], [place] [address]SE Hyal Buaa2-8Atjhae5-8GctfbxBethesda North HospitalComment on above:Performed By: #### [id number] #### [facility] [address], [place] [address]YB Leuk EstNegativeNormalNegAvita Health System Ontario Hospital Comment on above:Performed By: #### [id number] #### [facility] [address], [place] [address]SZ Mucous2+ CD:[id number]e Christ HospitalComment on above:Performed By: #### [id number] #### [facility] [address], [place] [address]XC NitriteNegativeNormalNegativeMercy Health St. [facility]'S [facility] Comment on above:Performed By: #### [id number] #### [facility] [address], [place] [address]VM pH6.0Invalid Interpretation Code5.0-9.0[facility] Rita'S Medical CenterComment on above:Performed By: #### [id number] #### [facility] [address], [place] [address]DK Protein1+ mg/dLAbnormalNegAvita Health System [facility] Hospital Comment on above:Performed By: #### [id number] #### [facility] [address], [place] [address]KL LQG2-4Rwerhq2-1HegkshBethesda North HospitalComment on above: Performed By: #### [id number] #### [facility] [address] [place], [place] [address]CY Spec Grav1.033Invalid Interpretation Code1.005-1.030[facility]. Rita'S Medical CenterComment on above:Performed By: #### [id number] #### [facility] [address], [place] [address]QQ Squam Epithelial5-8Invalid Interpretation CodeMercy Health St. Rita'S Medical CenterComment on above:Performed By: #### [id number] #### [facility] [address] [place] [address]KV UrobilinogenNegativeNormalNegativeMercy Health [address]. Rita'S Medical CenterComment on above:Performed By: #### [id number] #### [facility] [address] [place], [place] [address]HY TRX4-6Suljfm1-0Jfzazp Saint Luke InstituteComment on above: Performed By: #### [id number] #### [facility] [address] [place] [address]Cmzvtlghlvja (U) [Mass/Vol]NegativeNormalNegativeMercy Health St. Rita'S Medical CenterComment on above:Performed By: #### [id number] #### [facility] [address] [place] [address]KG Spec DescClean CatchNormalMercy Health St. Rita'S Medical CenterComment on above:Performed By: #### [id number] #### [facility] [address] [place] [address]MHMINPAGYSLgokrkk By: Kasia Graves on 26-67-9754Unjpppao gravity (U) [Rel density]1.015 8Zopkqd4.003 - 1.040[facility] UA Auto SSURINALYSIS Ordered By: SYSTEM SYSTEM on 42-19-0790Afpxnxldn Ql (U)NegativeNormal Negativemg/dLOU [facility]ICAL [facility] [place] UA Auto SSClarity (U)Clear (08/14/24 8:12 AM)NormalClearFSELECT [facility] [place] [facility] [place] Auto SSColor (U)Yellow 3 (08/14/24 8:12 AM)NormalYellowOU MEDICAL [facility] [place] UA Auto SSComment on above:Interpretive Data: Microscopic readings are only performed on those samples that meet specific criteria set forth by [facility].Epithelial cells.squamous Auto (Urine sed) [#/Area]5-8 graded/HPFInvalid Interpretation CodeOU [facility]ICAL [facility] [place] UA Auto SSGlucose Ql (U)Trace mg/dLInvalid Interpretation Code Negativemg/dLFTMC UA Auto SSHemoglobin Auto test strip (U) [Mass/Vol]Negative NormalNegativemg/dLFTMC UA Auto SSHyaline casts LM Ql (Urine sed)0-3 graded/LPF Normal0-3graded/LPFFTMC UA Auto SSKetones Auto test strip Ql (U)3+ mg/dLInvalid Interpretation CodeNegativemg/dLFTMC UA Auto SSLeukocyte esterase Auto test strip Ql (U)NegativeNormalNegativeLeu/uLFTMC UA Auto SSMucus Auto Ql (U)2+ graded/LPFInvalid Interpretation CodeNegativegraded/LPFFTMC UA Auto SSNitrite Auto test strip Ql (U)NegativeNormalNegativemg/dLFTMC UA Auto SSpH (U)6.0 *NA* (08/14/24 8:12 AM)Invalid Interpretation Code5.0 - 9.0[facility] UA Auto SSProtein Ql (U)1+ mg/dLInvalid Interpretation CodeNegativemg/dLFT UA Auto SSRBC Ql (U)0-3 graded/HPFNormal0-3graded/HPFFTMC UA Auto SSSpecific gravity (U) [Rel density] 1.033 *NA* (08/14/24 8:12 AM)Invalid Interpretation Code1.005 - 1.030FT UA Auto SS Urobilinogen (U) [Mass/Vol]NegativeNormalNegativemg/dLFT UA Auto SSWBC Auto (Urine sed) [#/Area]0-5 graded/HPFNormal0-5graded/HPFFTMC UA Auto SSURINALYSIS Ordered By: Bk Garduno on 58-47-1413YC Spec DescClean Catch (08/14/24 8:12 AM)NormalFT UA Auto SS us OB LIMITED 1+ FETUSESon 50-31-9450CJ OB LIMITED 1+ FETUSESInterpreted By: Leon Null and Dervishi Mario STUDY: US OB LIMITED 1+ FETUSES; 08/15/2024 2:14 am INDICATION: Signs/Symptoms:abdominal and chest pain during . COMPARISON: None. ACCESSION NUMBER(S): [id number] ORDERING CLINICIAN: LEÓN SPARROW TECHNIQUE: Multiple images were obtained. Transabdominal [...] Leon Null 08/15/2024 2:58 AM Dictation workstation: [id number] Memorial HospitaleGFRon 06-58-6238yGDA144 mL/min/1.73 n3Xpldvc>=59Fisher Saint Luke InstituteComment on above:Performed By: #### [id number] #### [facility] [address], [place] [address]AWG W Auto Differential panel (Bld)on 87-71-9311Gblsryevl (Bld) [#/Vol]0.03 10*3/[facility] CenterBasophils/100 WBC (Bld)0.2 %0.0 - 2.0 %[facility] HospitalEosinophils (Bld) [#/Vol]0.02 10*3/[facility] CenterEosinophils/100 WBC (Bld)0.1 %0.0 - 6.0 %[facility] HospitalErythrocyte distribution width (RBC) [Ratio] 14.6 %High11.5 - 14.5 %[facility] HospitalHematocrit (Bld) [Volume fraction]40 %36.0 - 46.0 %[facility] HospitalHemoglobin (Bld) [Mass/Vol]13.6 g/dL12.0 - 16.0 g/dLUnThe Jewish HospitalImsaint mary's health center granulocytes (Bld) [#/Vol]0.09 10*3/uLUnThe Jewish HospitalImsaint mary's health center granulocytes/100 WBC (Bld)0.5 %0.0 - 0.9 %[facility] Comment on above:Immature Granulocyte Count (IG) includes promyelocytes, myelocytes and metamyelocytes but does not include bands. Percent differential counts (%) should be interpreted in the context of the absolute cell counts (cells/UL).Interpretation and review of laboratory resultsAbnormalUProMedica Fostoria Community HospitalLymphocytes (Bld) [#/Vol]1.26 10*3/uLProMedica Defiance Regional HospitalLymphocytes/100 WBC (Bld)7.6 %13.0 - 44.0 %[facility]aw[facility] HospitalH (RBC) [Entitic mass]29.4 pg26.0 - 34.0 pgUnThe Jewish HospitalMCHC (RBC) [Mass/Vol]34 g/dL32.0 - 36.0 g/dLUnBluffton HospitalV (RBC) [Entitic vol]86 fL80 - 100 fLUniOhioHealth Grady Memorial HospitalMonocytes (Bld) [#/Vol]0.34 10*3/uLProMedica Defiance Regional Hospital Monocytes/100 WBC (Bld)2 %2.0 - 10.0 %[facility] Neutrophils (Bld) [#/Vol]14.92 10*3/uLCleveland Clinic Akron [facility] Comment on above:Percent differential counts (%) should be interpreted in the context of the absolute cell counts (cells/uL).Neutrophils/100 WBC (Bld)89.6 % 40.0 - 80.0 %[facility] HospitalNucleated RBC/100 WBC (Bld) [Ratio]0 %[facility] HospitalPlatelets (Bld) [#/Vol]273 10*3/uL [facility] HospitalRBC (Bld) [#/Vol]4.63 10*6/uLProMedica Defiance Regional HospitalWBC (Bld) [#/Vol]16.7 10*3/uLHighUnThe Jewish HospitalUnThe Jewish HospitalBasophils (Bld) [#/Vol]0.03 x10*3/uL Normal0.00-0.10UnHolzer Medical Center – JacksonComment on above: Performed By: #### 56774-2 #### TERE RICH ([id number]) [facility] ([facility]) [address] [place] [address]Adfunzzzl/100 WBC (Bld)0.2 %Normal0.0-2.0UnHolzer Medical Center – JacksonComment on above:Performed By: #### 84997-4 #### TERE RICH ([id number]) [facility] ([facility]) [address] [place] [address]Duprywuzchu (Bld) [#/Vol]0.02 x10*3/uLNormal0.00-0.70UnHolzer Medical Center – JacksonComment on above:Performed By: #### 92723-8 #### TERE RICH ([id number]) [facility] ([facility]) [address] [place] [address]Lhjsubkfhpb/100 WBC (Bld)0.1 %Normal0.0-6.0UnHolzer Medical Center – JacksonComment on above:Performed By: #### 28265-1 #### TERE RICH ([id number]) [facility] ([facility]) [address] [place] [address]Wmirridxiyn distribution width (RBC) [Ratio]14.6 %High11.5-14.5 [facility] Private HospitalComment on above:Performed By: #### 65507-0 #### TERE RICH ([id number]) [facility]) [address] [place] [address]Xviolcncom (Bld) [Volume fraction]40.0 %Eaaqgt30.0-46.0 [facility] HospitalComment on above:Performed By: #### 42115-4 #### TERE RICH ([id number]) [facility] ([facility]) [address] [place] [address]Jxiwiohjrz (Bld) [Mass/Vol]13.6 g/tFVlezpv78.0-16.0UnHolzer Medical Center – JacksonComment on above:Performed By: #### 36590-3 #### TERE RICH (45352) [facility] ([facility]) [address] [place] [address]Jkewhukv granulocytes (Bld) [#/Vol]0.09 x10*3/uLNormal0.00-0.70 [facility] HospitalComment on above:Performed By: #### 03122-6 #### TERE RICH ([id number]) [facility] ([facility]) [address] [place] [address]Iewfirfo granulocytes/100 WBC (Bld)0.5 %Normal0.0-0.9UnHolzer Medical Center – JacksonComment on above:Result Comment: Immature Granulocyte Count (IG) includes promyelocytes, myelocytes and metamyelocytes but does not include bands. Percent differential counts (%) should be interpreted in the context of the absolute cell counts (cells/UL).Performed By: #### 19365-5 #### TERE RICH ([id number]) [facility] ([facility]) [address] [place] [address]Isnllqfvxeq (Bld) [#/Vol]1.26 x10*3/uLNormal1.20-4.80UnHolzer Medical Center – JacksonComment on above:Performed By: #### 08061-3 #### TERE RICH ([id number]) [facility] ([facility]) [address] [place] [address]Qhoxunkaidd/100 WBC (Bld)7.6 %Dddpup43.0-44.0UnHolzer Medical Center – JacksonComment on above:Performed By: #### 49956-8 #### TERE RICH ([id number]) [facility]) [address] [place] [address] (RBC) [Entitic mass]29.4 yrJrfizd61.0-34.0UnHolzer Medical Center – JacksonComment on above:Performed By: #### 98041-3 #### TERE RICH (50702) [facility] ([facility]) [address] [place], [place] [address]HC (RBC) [Mass/Vol]34.0 g/kIPgqqgj27.0-36.0UnHolzer Medical Center – JacksonComment on above:Performed By: #### 94432-8 #### TERE RICH (53573) [facility] ([facility]) [address] [place], [place] [address]V (RBC) [Entitic vol]86 rLDmfyvb91-377ZcmvwkqmylHolzer Medical Center – JacksonComment on above:Performed By: #### 89090-8 #### TERE RICH ([id number]) [facility] ([facility]) [address] [place] [address]Caeqepttj (Bld) [#/Vol]0.34 x10*3/uLNormal0.10-1.00UnHolzer Medical Center – JacksonComment on above:Performed By: #### 30297-4 #### TERE RICH ([id number]) [facility]) [address] [place] [address]85[address]Jyasoaxnk/100 WBC (Bld)2.0 %Normal2.0-10.0UnHolzer Medical Center – JacksonComment on above:Performed By: #### 63572-9 #### TERE RICH ([id number]) [facility] ([facility]) [address] [place] [address]36[address]Dtyfdgwdond (Bld) [#/Vol]14.92 x10*3/uLHigh1.20-7.70UnHolzer Medical Center – JacksonComment on above:Result Comment: Percent differential counts (%) should be interpreted in the context of the absolute cell counts (cells/uL).Performed By: #### 84304-7 #### TERE RICH (73479) [facility]) [address] [place] [address]36[address]Giyhgokgghz/100 WBC (Bld)89.6 %Liyqsf03.0-80.0[facility] Private HospitalComment on above:Performed By: #### 89773-1 #### TERE RICH (12287) [facility]) [address] [place] [address]Vlgoagmoz RBC/100 WBC (Bld) [Ratio]0.0 /100 WBCsNormal0.0-0.0 [facility] HospitalComment on above:Performed By: #### 60725-1 #### TERE RICH (74207) [facility] ([facility]) [address] [place] [address] 37[address]Tnetoobqf (Bld) [#/Vol]273 x10*3/kKZyfrar712-826LwoxyvfhpnHolzer Medical Center – JacksonComment on above:Performed By: #### 84326-0 #### TERE RICH (95584) [facility]) [address] [place] [address]TRO (Bld) [#/Vol]4.63 x10*6/uLNormal4.00-5.20UnHolzer Medical Center – JacksonComment on above:Performed By: #### 51692-7 #### TERE RICH (74535) [facility]) [address] [place] [address]WPI (Bld) [#/Vol]16.7 x10*3/uLHigh4.4-11.3[facility] Private HospitalComment on above:Performed By: #### 29197-6 #### TERE RICH (26040) [facility]) [address] [place] [address]08[address]Bbbdmolprtyxw metabolic 2000 panelon 96-76-1935Jllnkaz BCP dye [Mass/Vol]4.1 g/dL3.4 - 5.0 g/dLUnThe Jewish HospitalALP [Catalytic activity/Vol]45 U/L33 - 110 U/[facility] SystemALT With P-5'-P [Catalytic activity/Vol]15 U/L7 - 45 U/[facility] on above:Patients treated with Sulfasalazine may generate falsely decreased results for ALT.Anion gap [Moles/Vol]14 mmol/L10 - 20 mmol/[facility] SystemAST With P-5'-P [Catalytic activity/Vol]15 U/L9 - 39 U/[facility] SystemBilirubin [Mass/Vol]0.4 mg/dL0.0 - 1.2 mg/dLUnThe Jewish HospitalCalcium [Mass/Vol]9.3 mg/dL8.6 - 10.3 mg/dLUnThe Jewish HospitalChloride [Moles/Vol]106 mmol/L98 - 107 mmol/[facility] SystemCO2 [Moles/Vol]19 mmol/LLow21 - 32 mmol/[facility] SystemCreatinine [Mass/Vol]0.54 mg/dL0.50 - 1.05 mg/dLUnThe Jewish HospitaleGFR- PINFUniTrinity Health System East Campus on above:Calculations of estimated GFR are performed using the 2020 CKD-EPI Study Refit equation without therace variable for the IDMS-Traceable creatinine methods. https://jasn.asnjournals.org/content//ASN.7880657000 Glucose [Mass/Vol]122 mg/hGSdai64 - 99 mg/dLUnThe Jewish Hospital Interpretation and review of laboratory resultsAbnormalUniOhioHealth Grady Memorial HospitalPotassium [Moles/Vol]3.5 mmol/L3.5 - 5.3 mmol/[facility] Health SystemProtein [Mass/Vol]6.8 g/dL6.4 - 8.2 g/dLUnThe Jewish HospitalSodium [Moles/Vol]135 mmol/GBkf967 - 145 mmol/[facility] SystemUrea nitrogen [Mass/Vol]11 mg/dL6 - 23 mg/dLUnThe Jewish HospitalAlbumin BCP dye [Mass/Vol]4.1 g/dLNormal3.4-5.0UnHolzer Medical Center – JacksonComment on above:Performed By: #### [id number] #### TERE RICH ([id number]) [facility]) [address], [place] [address]DAA [Catalytic activity/Vol]45 U/DLkiokv70-671NtmhvbqshcHolzer Medical Center – JacksonComment on above:Performed By: #### [id number] #### TERE RICH ([id number]) [facility]) [address], [place] [address]JED With P-5'-P [Catalytic activity/Vol]15 U/LNormal7-45 [facility] Private HospitalComment on above:Result Comment: Patients treated with Sulfasalazine may generate falsely decreased results for ALT.Performed By: #### 61088-0 #### TERE RICH ([id number]) [facility]) [address], [place] [address]Evgxc gap [Moles/Vol]14 mmol/DBaeydr50-42YtzwryvxqeHolzer Medical Center – JacksonComment on above:Performed By: #### 88406-1 #### TERE RICH ([id number]) [facility]) [address], [place] [address]MEY With P-5'-P [Catalytic activity/Vol]15 U/LNormal9-39 [facility] HospitalComment on above:Performed By: #### 90567-6 #### TERE RICH ([id number]) [facility]) [address], [place] [address]Tyxkfubzn [Mass/Vol]0.4 mg/dLNormal0.0-1.2UnHolzer Medical Center – JacksonComment on above:Performed By: #### 23421-0 #### TERE RICH ([id number]) [facility]) [facility], [place] [address]Iigmefi [Mass/Vol]9.3 mg/dLNormal8.6-10.3UnHolzer Medical Center – JacksonComment on above:Performed By: #### 41274-2 #### TERE RICH ([id number]) [facility]) [address] [place] [address]Bhjudcef [Moles/Vol]106 mmol/XNratvn82-894LysafgrivlHolzer Medical Center – JacksonComment on above:Performed By: #### 95410-3 #### TERE RICH ([id number]) [facility]) [address] [place] [address] 36363UQ0 [Moles/Vol]19 mmol/UNio15-10TmhpdaswnzHolzer Medical Center – JacksonComment on above:Performed By: #### 17257-0 #### TERE RICH ([id number]) [facility]) [address] [place] [address] 33975Smnkivnrgl [Mass/Vol]0.54 mg/dLNormal0.50-1.05UnHolzer Medical Center – JacksonComment on above:Performed By: #### 68043-9 #### TERE RICH ([id number]) [facility]) [address] [place] [address]DUA/1.73 sq M.predicted MDRD (S/P/Bld) [Vol rate/Area] mL/min/{1.73_m2}Normal>60UnHolzer Medical Center – JacksonComment on above:Result Comment: Calculations of estimated GFR are performed using the 2020 CKD-EPI Study Refit equation without the race variable for the IDMS-Traceable creatinine methods. https://jasn.asnjournals.org/content/early//ASN.3412725919Lpdrdhneu By: #### 19175-1 #### TERE RICH ([id number]) [facility]) [address] [place] [address] 29231Fygbyms [Mass/Vol]122 mg/kQMtpe29-71VmhminihcyHolzer Medical Center – JacksonComment on above:Performed By: #### 22038-9 #### TERE RICH ([id number]) [facility]) [address] [place] [address] 16506Ftasitkvr [Moles/Vol]3.5 mmol/LNormal3.5-5.3[facility] Private HospitalComment on above:Performed By: #### 86078-6 #### TERE RICH ([id number]) [facility]) [address] [place] [address] 61070Xvsztej [Mass/Vol]6.8 g/dLNormal6.4-8.2UnHolzer Medical Center – JacksonComment on above:Performed By: #### 77702-2 #### TERE RICH ([id number]) [facility]) [address] [place] [address] 21811Qwagla [Moles/Vol]135 mmol/SJes771-760MsdtgxhqfrHolzer Medical Center – JacksonComment on above:Performed By: #### 37090-9 #### TERE RICH ([id number]) [facility]) [address] [place] [address] 86304Tmwq nitrogen [Mass/Vol]11 mg/dLNormal6-23UnHolzer Medical Center – JacksonComment on above:Performed By: #### 65048-6 #### TERE RICH ([id number]) [facility] [address] [place] [address] 695[address]RFB 12-LEADon 69-04-1456SEQ 12-LEADVentricular Rate 73 Atrial Rate 73 P-R Interval 102 QRS Duration 72 Q-T Interval 380 QTC Calculation(Bazett) 418 P Ana[place] 81 R Anaheim 95 T [place] 61 QRS Count 12 Q Onset 220 P Onset 169 P Offset 202 T Offset 410 QTC Fredericia 405 Diagnosis Sinus rhythm with marked sinus arrhythmia with short TX Rightward axis Borderline ECG No previous ECGs available See ED provider note for full interpretation and clinical correlation Confirmed by Lynsey Luna ([id number]) on 08/14/2024 2:04:30 PMNormalRiverview Medical CenterLipaseon 12-83-5833Zyriyt [Catalytic activity/Vol]16 U/L 9 - 82 U/[facility] State Health SystemLipase [Catalytic activity/Vol]on 73-15-1973Tlwdxtikuejmsl and review of laboratory resultsNoalUProMedica Fostoria Community HospitalVenipuncture immediately after or during the administration of Metamizole may lead to falsely low results. Testing should be performed immediately prior to Metamizole dosing.[facility] HospitalUnThe Jewish HospitalMagnesiumon 19-63-4542Nhbapdtgm [Mass/Vol]1.81 mg/dL1.60 - 2.40 mg/dLUnThe Jewish HospitalMagnesium [Mass/Vol]1.81 mg/dLNormal1.60-2.40UnHolzer Medical Center – Jackson Comment on above:Performed By: #### 20872-8 #### TERE RICH ([id number]) [facility]) [address] [place] [address] 19301Ytzvzdmtl [Mass/Vol]on 33-01-5986Iefhhuzvgufhxt and review of laboratory resultsNoMemorial Health System Selby General HospitalNo Panel Informationon 78-59-2339JmiwmsmvjoThe Jewish HospitalTriacylglycerol lipaseon 08-13-2024 Lipase [Catalytic activity/Vol]16 U/LNormal9-82UnHolzer Medical Center – JacksonComment on above:Order Comment: Venipuncture immediately after or during the administration of Metamizole may lead to falsely low results. Testing should be performed immediately prior to Metamizole dosing.Performed By: #### 3040-3 #### TERE RICH ([id number]) [facility]) [address] [place] [address] 12512Vdzntffwjo complete W Reflex Culture panel (U)on 08-13-2024 Appearance (U)Ex.TurbidAbnormalClearUnThe Jewish HospitalBilirubin (U) [Mass/Vol]NegativeNEGATIVE mg/dLUnThe Jewish HospitalColor (U) YellowLight-Yellow, Yellow, Dark-YellowUnThe Jewish Hospital Crystals.amorphous Computer assisted (U) [#/Area]2+NONE, 1+, 2+ /[facility] MEDICAL CENTERUnThe Jewish HospitalEpithelial cells.squamous Auto (Urine sed) [#/Area]1-9 (SPARSE)Reference range not established. /HPFUnThe Jewish Hospital Glucose Auto test strip (U) [Mass/Vol]NormalNormal mg/dLUnThe Jewish HospitalInterpretation and review of laboratory resultsAbnormalUniOhioHealth Grady Memorial HospitalKetones (U) [Mass/Vol]80 (3+)AbnormalNEGATIVE mg/dL [facility] HospitalLeukocyte esterase Auto test strip Ql (U) NegativeNEGATIVEUnThe Jewish HospitalMucus Auto (Urine sed) [#/Area] 1+Reference range not established. /LPFUniOhioHealth Grady Memorial HospitalNitrite Auto test strip Ql (U)NegativeNEGATIVEUnThe Jewish HospitalpH (U)8.5 [pH]Abnormal5.0, 5.5, 6.0, 6.5, 7.0, 7.5, 8.0UnThe [facility] Hospital Protein (U) [Mass/Vol]30 (1+)AbnormalNEGATIVE, 10 (TRACE), 20 (TRACE) mg/dL [facility] HospitalRBC (U) [#/Vol]NegativeNEGATIVE mg/dLUnThe Jewish HospitalRB Auto (Urine sed) [#/Area]6-10AbnormalNONE, 1-2, 3-5 /HPFUnThe Jewish HospitalSpecific gravity (U) [Rel density]1.023 1.005 - 1.035UnThe Jewish HospitalUrobilinogen (U) [Mass/Vol]Normal Normal mg/dLUnThe Jewish HospitalWBC Auto (Urine sed) [#/Area]6-10 Abnormal1-5, NONE /[facility] MEDICAL CENTERUnThe Jewish HospitalUnThe Jewish HospitalAppearance (U)Ex.TurbidNormalClearUnHolzer Medical Center – JacksonComment on above:Performed By: #### 04462-1 #### TERE RICH ([id number]) [facility]) [address] [place] [address] 28206Cbcvgfnib (U) [Mass/Vol]NegativeNormalNEGATIVEUnHolzer Medical Center – JacksonComment on above:Performed By: #### 93677-0 #### TERE RICH ([id number]) [facility]) [address] [place] [address] 39020Cfrtm (U)YellowNormalLight-Yellow, Yellow, Dark-Yellow [facility]an Private HospitalComment on above:Performed By: #### 30976-8 #### TERE RICH ([id number]) [facility]) [address] [place] [address] 30313Vfmleien.amorphous Computer assisted (U) [#/Area]2+ /HPFNormal NONE, 1+, 2+[facility] Private HospitalComment on above: Performed By: #### 39314-8 #### TERE RICH (79127) [facility]) [address] [place] [address] 69217Ktjrhzmxyw cells.squamous Auto (Urine sed) [#/Area]1-9 (SPARSE) NormalReference range not established.[facility] Private HospitalComment on above:Performed By: #### 42801-4 #### TERE RICH ([id number]) [facility]) [address] [place], [place] [address]Glucose Auto test strip (U) [Mass/Vol]NormalNormalNormal [facility] HospitalComment on above:Performed By: #### 18778-9 #### TERE RICH ([id number]) [facility]) [address] [place] [address] 94014Xmcltrf (U) [Mass/Vol]80 (3+)AbnormalNEGATIVEUnHolzer Medical Center – JacksonComment on above:Performed By: #### 37501-7 #### TERE RICH (63338) [facility]) [address] [place] [address] 64648Hjfbkiohs esterase Auto test strip Ql (U)NegativeNormalNEGATIVE [facility] HospitalComment on above:Performed By: #### 19864-2 #### TERE RICH (59136) [facility]) [address] [place] [address] 77542Earcx Auto (Urine sed) [#/Area]1+ /LPFNormalReference range not established.[facility] Private HospitalComment on above: Performed By: #### 71307-4 #### TERE RICH (86982) [facility]) [address] [place] [address] 28684Wzcqeqe Auto test strip Ql (U)NegativeNormalNEGATIVEUnHolzer Medical Center – JacksonComment on above:Performed By: #### 24854-3 #### TERE RICH ([id number]) [facility]) [address] [place] [address] 65332zU (U)8.5 [pH]Normal5.0, 5.5, 6.0, 6.5, 7.0, 7.5, 8.0UnHolzer Medical Center – JacksonComment on above:Performed By: #### 48634-1 #### TERE RICH (76603) [facility]) [address] [place] [address] 89097Noxdlme (U) [Mass/Vol]30 (1+)AbnormalNEGATIVE, 10 (TRACE), 20 (TRACE)[facility] Private HospitalComment on above:Performed By: #### 87107-1 #### TERE RICH ([id number]) [facility]) [address] [place] [address] 25459TQI (U) [#/Vol]NegativeNormalNEGATIVEUnHolzer Medical Center – JacksonComment on above:Performed By: #### 75353-6 #### TERE RICH ([id number]) [facility]) [address] [place] [address] 39103FDL Auto (Urine sed) [#/Area]6-10AbnormalNONE, 1-2, 3-5 [facility] HospitalComment on above:Performed By: #### 44509-5 #### TERE RICH ([id number]) [facility]) [address] [place] [address] 47[address]Ksrmkmyv gravity (U) [Rel density]1.282Gfefez3.005-1.035 [facility] HospitalComment on above:Performed By: #### 28083-1 #### TERE RICH (72976) [facility]) [address] [place], [place] [address]Urobilinogen (U) [Mass/Vol]NormalNormalPeoples HospitalComment on above:Performed By: #### 10517-8 #### TERE RICH ([id number]) [facility]) [address], [place] [address]OJJ Auto (Urine sed) [#/Area]1-67Nqdwgjxt9-7, [facility] Community HospitalComment on above:Performed By: #### 36430-1 #### TERE RICH (79351) [facility]) [address], [place] [address]PC CHEST 1 VIEWon [id number] CHEST 1 VIEWInterpreted By: Michelle Min, STUDY: XR CHEST 1 VIEW; 08/13/2024 10:38 am INDICATION: Signs/Symptoms:chest pressure after vomiting. COMPARISON: None. ACCESSION NUMBER(S): [id number] ORDERING CLINICIAN: MILAN LERNER FINDINGS: AP radiograph of the chest was provided. CARDIOMEDIASTINAL SILHOUETTE: Cardiomediastinal silhouette is normal in size and configuration. LUNGS: No consolidation, pulmonary edema, pleural effusion, or pneumothorax. ABDOMEN: No remarkable upper abdominal findings. BONES: No acute osseous changes. IMPRESSION: No evidence of acute cardiopulmonary process. Signed by: Michelle Min 08/13/2024 10:40 AM Dictation workstation: [id number] HospitalXR Chest Single viewon 23-94-7722Dq evidence of acute cardiopulmonary process. Signed by: Michelle Min 08/13/2024 10:40 AM Dictation workstation: [id number] MMODALInterpreted By: Michelle Min, STUDY: XR CHEST 1 VIEW; 08/13/2024 10:38 am INDICATION: Signs/Symptoms:chest pressure after vomiting. COMPARISON: None. ACCESSION NUMBER(S): [id number] ORDERING CLINICIAN: MILAN LERNER FINDINGS: AP radiograph of the chest was provided. CARDIOMEDIASTINAL SILHOUETTE: Cardiomediastinal silhouette is normal in size and configuration. LUNGS: No consolidation, pulmonary edema, pleural effusion, or pneumothorax. ABDOMEN: No remarkable upper abdominal findings. BONES: No acute osseous changes. MMODALMalMichelle dey MD, MS - 08/13/2024 Interpreted By: Michelle Min, STUDY: XR CHEST 1 VIEW; 08/13/2024 10:38 am INDICATION: Signs/Symptoms:chest pressure after vomiting. COMPARISON: None. ACCESSION NUMBER(S): [id number] ORDERING CLINICIAN: MILAN LERNER FINDINGS: AP radiograph of the chest was provided. CARDIOMEDIASTINAL SILHOUETTE: Cardiomediastinal silhouette is normal in size and configuration. LUNGS: No consolidation, pulmonary edema, pleural effusion, or pneumothorax. ABDOMEN: No remarkable upper abdominal findings. BONES: No acute osseous changes. IMPRESSION: No evidence of acute cardiopulmonary process. Signed by: Michelle Min 08/13/2024 10:40 AM Dictation workstation: [id number] [facility] Work Phone: Radiology Study observation (narrative)[facility] Work Phone: XR Chest Single viewOrdered By: Michelle Min on 37-43-6649UuagaagmnhThe Jewish Hospital Work Phone: Urinalysis macro (dipstick) panel (U)on 07-30-2024 Bilirubin, UANegativeNegative - 4(70) +++ mg/dLNOMS HealthcareBlood, UANegative Negative - 50 Mick/mcLNOMS HealthcareClarity, UAClearNOMS HealthcareColor, UA YellowNOMS HealthcareGlucose, UANegativeNegative - 2000(110) ++++ mg/dLNOMS HealthcareInterpretation and review of laboratory resultsNormalNOMS Healthcare Ketones, UANegativeNegative - 160(16) ++++ mg/dLNOMS HealthcareLeukocytes, UA NegativeNegative - 500+++ Campos/mcLNOMS HealthcareNitrite, UANegativeNegative - PositiveNOMS HealthcarepH, UA75 - 9NOMS HealthcareProtein, UANegativeNegative - 2000(20) ++++ mg/dLNOMS HealthcareSpec Grav, UA1.021 - 1.03N[facility] Healthcare Urobilinogen, UA0.20.2 - 12 mg/dLNOCapital Region Medical Center HealthcareBOX TESTon [id number] TEST SENT OUTUNITYSac-Osage HospitalFwwxkbjselJTG3SPKYSQECT HealthcareBOX2 07/10/24[facility] CLINISYNCSANPET[facility] HealthcareUS OB TRANSVAGINALon [id number] OB TRANSVAGINALEXAM: US OB TRANSVAGINAL HISTORY: Follow up subchorionic hemorrhage. IVF. A1. [place] 02/12/2025. COMPARISON: U/S Ob 06/30/2024 TECHNIQUE: Two-dimensional transvaginal grayscale, color and spectral Doppler ultrasound imaging ofthe pelvis was performed. FINDINGS: The uterus demonstrates [...] II, MD, PHD at 09-Jul-2024 08:43:53 AM [facility] TeleradiologyNormalNot AvailableComment on above:Order Comment: US OB VIABILITY PLEASE PERFORM TRANSVAGINAL ULTRASOUND IF INDICATED No LMP recorded.US OB TRANSVAGINALon [id number] OB TRANSVAGINALEXAM: US OB TRANSVAGINAL HISTORY: Bleeding in early . IVF. Intermittent bleeding on 06/16/2024. A1. [place] 02/11/2025. COMPARISON: None available TECHNIQUE: Two-dimensional transvaginal grayscale, color and spectral Doppler ultrasound imaging ofthe pelvis was performed. FINDINGS: The uterus demonstrates a normal homogeneous echotexture. The cervical os is closed. The right ovary measures 4.1 x 2.2 x 3.8 cm and demonstrates a normal echotexture with a corpus luteal cyst. There is normal color and spectral Doppler flow. The left ovary measures 2.9 x 1.0 x 2.4 cm and demonstrates a normal echotexture. There is normal color and spectral Doppler flow. No fluid is present within the cul-de-sac. There is a single, live intrauterine gestation identified with a heart rate of 156 beats per minute and a crown-rump length measurement of 1.3 cm, correlating to a gestational age of 7 weeks 3 days. There is a 4.8 x 0.7 x 3.9 cm subchorionic hemorrhage visualized. A yolk sac is visualized. IMPRESSION: 1. Single, live intrauterine gestation 7 weeks, 5 days by LMP. Today's ultrasound measurements correlate with a gestational age of 7 weeks 3 days (+/- 5 days). 2. Subchorionic hemorrhage. 3. Right ovarian corpus luteal cyst. Interpreted by: Electronically signed by SAUNDRA MARIE II, MD, PHD at 01-Jul-2024 07:14:28 PM [facility] TeleradiologyNormalNot AvailableComment on above:Order Comment: US OB VIABILITY PLEASE PERFORM TRANSVAGINAL ULTRASOUND IF INDICATED No LMP recorded (exact date).HCG ( test) Ql (U)on 06-24-2024 Interpretation and review of laboratory resultsAbnormalNOMS HealthcarePreg Test, UrPositiveNegativeNOMS HealthcareNOMS HealthcareUrinalysis macro (dipstick) panel (U)on 82-69-7355Gtpbaiyme, UANegativeNegative - 4(70) +++ mg/dLNOMS HealthcareBlood, UAPositiveNegative - 50 Mick/mcLNOMS HealthcareComment on above: traceClarity, UAClearNOMS HealthcareColor, UAYellowNOMS HealthcareGlucose, UA NegativeNegative - 2000(110) ++++ mg/dLNOMS HealthcareInterpretation and review of laboratory resultsNormalNOMS HealthcareKetones, UANegativeNegative - 160(16) ++++ mg/dLNONH HealthcareLeukocytes, UANegativeNegative - 500+++ Campos/mcLNOMS HealthcareNitrite, UANegativeNegative - PositiveNOMS HealthcarepH, UA75 - 9NOMS HealthcareProtein, UANegativeNegative - 2000(20) ++++ mg/dLNOMS HealthcareSpec Grav, UA1.0151 - 1.03NOMS HealthcareUrobilinogen, UA0.20.2 - 12 mg/dLNOMS HealthcareNOMS HealthcareBMPon 34-20-0047Fyxhr gap [Moles/Vol]8 mmol/LNormal6-[address] Rita'S Medical CenterComment on above:Performed By: #### [id number] #### [facility] [address], [place] [address]Pvleeqy [Mass/Vol]8.1 mg/dLLow8.9-11.1FBethesda North HospitalComment on above:Performed By: #### [id number] #### [facility] [address], [place] [address]Jasqzjhr [Moles/Vol]106 mmol/TIpptit024-319TrlsskMercy Health St. Rita'S Medical CenterComment on above:Performed By: #### [id number] #### [facility] [address], [place] [address]CN8 [Moles/Vol]27 mmol/WVssgxa52-47TsrerlMercy Health St. [facility]'S [facility] Center Comment on above:Performed By: #### [id number] #### [facility] [address], [place] [address]Lcemhuztet [Mass/Vol]0.6 mg/dLNormal0.5-1.3FBethesda North HospitalComment on above:Performed By: #### [id number] #### [facility] [address], [place] [address]Kusrjgk [Mass/Vol]93 mg/fCFsafnx03-939CxfxfzMercy Health St. Rita'S Medical CenterComment on above:Performed By: #### [id number] #### [facility] [address], [place] [address]Lgloerwyh [Moles/Vol]3.9 mmol/LNormal3.5-5.3FBethesda North HospitalComment on above:Performed By: #### [id number] #### [facility] [address] [place] [address] 818[address]Pnrppn [Moles/Vol]137 mmol/EXwdxxg900-506LdskwoMercy Health St. Rita'S Medical CenterComment on above:Performed By: #### [id number] #### [facility] [address], [place] [address]Pice nitrogen [Mass/Vol]7 mg/dLNormal5-21[facility] St. Rita'S Medical CenterComment on above:Performed By: #### [id number] #### [facility] [address] [place] [address] 38790Lula nitrogen/Creatinine [Mass ratio]12 No EqusiLtyrin85-[address] Rita'S Medical CenterComment on above:Performed By: #### [id number] #### [facility] [address] [place] [address] 08[address]GZA w/ Auto Diffon 80-95-6725Etbrlnnba/100 WBC (Bld)0.3 %Normal 0.0-2.0[facility] St. Rita'S Medical CenterComment on above:Performed By: #### [id number] #### [facility] [address] [place] [address] 13[address]Hvjbppfpk/Leukocytes Auto (Bld) [Pure # fraction]0.0 E9/LNormal 0.0-0.2FBethesda North HospitalComment on above:Performed By: #### [id number] #### [facility] [address] [place] [address] 18781Waswonsjaqx (Bld) [#/Vol]0.0 E9/LNormal0.0-0.5FBethesda North HospitalComment on above:Performed By: #### [id number] #### [facility] [address] [place] [address] 67270Awsmkorzjij/100 WBC (Bld)0.5 %Normal0.0-8.0[facility] Rita'S Medical CenterComment on above:Performed By: #### [id number] #### [facility] [address] [place] [address] 98079Bmtdpzbledt distribution width (RBC) [Ratio]14.7 %High10.9-14.[address] Rita'S Medical CenterComment on above:Performed By: #### [id number] #### [facility] [address] [place] [address] 81842Jlhukytwrc (Bld) [Volume fraction]32.2 %Low34.0-46.0[facility] Rita'S Medical CenterComment on above:Performed By: #### [id number] #### [facility] [address] [place] [address] 52[address]Ijaweodzrv (Bld) [Mass/Vol]11.1 g/dLLow12.0-16.0[facility] Rita'S Medical CenterComment on above:Performed By: #### [id number] #### [facility] [address] [place] [address] 511[address]Ayjfotfvsbi (Bld) [#/Vol]1.8 E9/LNormal1.0-4.0[facility] Rita'S Medical CenterComment on above:Performed By: #### [id number] #### [facility] [address] [place] [address] 17645Jlupmcsfgtb/100 WBC (Bld)18.1 %Tqpepk32.0-50.0[facility] Rita'S Medical CenterComment on above:Performed By: #### [id number] #### [facility] [address] [place] [address] 94293YHB (RBC) [Entitic mass]30.4 idUtoxvq80.0-34.0[facility] Rita'S Medical CenterComment on above:Performed By: #### [id number] #### [facility] [address] [place] [address] 86594CZXC (RBC) [Mass/Vol]34.5 g/yMNkhoyn89.4-36.0[facility] Rita'S Medical CenterComment on above:Performed By: #### [id number] #### [facility] [address] [place] [address] 99886ISU (RBC) [Entitic vol]88.1 eCLonyjx56.0-100.0[facility] Rita'S Medical CenterComment on above:Performed By: #### [id number] #### [facility] [address] [place] [address] 85254Xxslejbpx (Bld) [#/Vol]0.7 E9/LNormal0.2-1.0[facility] Rita'S Medical CenterComment on above:Performed By: #### [id number] #### [facility] [address] [place] [address] 24406Mwsrncqlkim (Bld) [#/Vol]7.2 E9/LNormal2.0-7.5FBethesda North HospitalComment on above:Performed By: #### [id number] #### [facility] [address] [place] [address] 08022Rdrojeyipvv/100 WBC (Bld)73.7 %Uzbheq51.0-75.0[facility] Rita'S Medical CenterComment on above:Performed By: #### [id number] #### [facility] [address] [place] [address] 88340Cjtwklej mean volume (Bld) [Entitic vol]8.0 fLNormal6.4-10.[address] Rita'S Medical CenterComment on above:Performed By: #### [id number] #### [facility] [address] [place] [address] 87906Urxrlppmu (Bld) [#/Vol]203.0 E9/EHstwib618.0-500.0[facility] Rita'S Medical CenterComment on above:Performed By: #### [id number] #### [facility] [address] [place] [address] 21906CJR (Bld) [#/Vol]3.7 E12/LLow4.3-5.9[facility] [facility] Comment on above:Performed By: #### [id number] #### [facility] [address] [place] [address] [id number] corrected for nucl RBC Auto (Bld) [#/Vol]9.7 E9/LNormal 4.0-11.0[facility]'S Medical CenterComment on above:Performed By: #### [id number] #### [facility] [address] [place], [place] [address]EOAUUISNTUyrywec By: SYSTEM SYSTEM on 88-50-3634Wwqtg gap [Moles/Vol]8 mmol/LNormal6 - 16 mEq/LRemisol ChemCalcium [Mass/Vol]8.1 mg/dLLow 8.9 - 11.1 mg/dLRemisol ChemChloride [Moles/Vol]106 mmol/GPnjgqe776 - 111 mmol/L Remisol ChemCO2 [Moles/Vol]27 mmol/PRfuxdy31 - 31 mmol/LRemisol ChemCreatinine [Mass/Vol]0.6 mg/dLNormal0.5 - 1.3 mg/dLRemisol AkmjfYHN516 mL/min/1.73 z3Flgykj >=59mL/min/1.73 m9Abbkddj ChemGlucose [Mass/Vol]93 mg/gWIueeob67 - 199 mg/dL Remisol ChemPotassium [Moles/Vol]3.9 mmol/LNormal3.5 - 5.3 mmol/LRemisol Chem Sodium [Moles/Vol]137 mmol/YFjzvlj443 - 145 mmol/LRemisol ChemUrea nitrogen [Mass/Vol]7 mg/dLNormal5 - 21 mg/dLRemisol ChemUrea nitrogen/Creatinine [Mass ratio]12 mg/odDgnxzm12 - 20Remisol ChemDischarge Note-Nursingon 06-22-2024 Discharge Note-NursingDischarge Note-Nursing INDU ST :1995 Visit Date:06/19/2024 Inpatient Discharge Instructions Your Care Team Admitting Physician - Samantha QUINN DO Consulting Physician - Hospitalist Post Disch, Results Reviewer MONTSERRAT ELLISON, JADE Verdugo MD, Saundra Peace Reason for Your Visit n/v Your Diagnosis Hyperemesis gravidarum Cannabis hyperemesis syndrome concurrent with and due to cannabis abuse Esophagitis Intractable vomiting First trimester On deep vein thrombosis (DVT) prophylaxis Abdominal pain - Epigastric Pain Nausea and vomiting Tests Performed Respiratory Panel by PCR -- Results Pending -- US Gallbladder US Transvaginal XR Chest Single View Please visit your patient portal for your results or contact your primary care physician. This Is Your Medications List [facility] Prescription (Boost/Ensure) famotidine (famotidine 20 mg Tab) metoclopramide (Reglan 5 mg Tab) multivitamin, ( 19 ([place])) naloxone (naloxone 4 mg/0.1 mL nasal spray) omega-3 polyunsaturated fatty acids (Fish Oil) ondansetron (Zofran ODT 4 mg Tab-Dis) oxycodone (oxyCODONE 5 mg Cap) pantoprazole (Protonix 40 mg Tab-DR) polyethylene glycol 3350 (MiraLax 3350 Oral Pwdr for Recon 249 gram) sucralfate (Carafate 1 g/10 mL Susp-Oral) [Image Removed: STOP]Stop taking these medications alprazolam (Xanax 0.5 mg Tab) alprazolam (Xanax) cyclophosphamide (cyclophosphamide 50 mg oral capsule) estradiol (estradiol 2 mg Tab) fat emulsion, intravenous (Omegaven 10% intravenous emulsion) fluticasone-salmeterol (Advair HFA 115 mcg-21 mcg/inh inhalation aerosol with adapter) lamotrigine (lamotrigine 25 mg Tab) methylphenidate (Ritalin 20 mg oral tablet) methylphenidate (Ritalin 20 mg oral tablet) progesterone (progesterone 200 mg oral capsule) progesterone (progesterone 50 mg/mL intramuscular solution) Procedure History Colonoscopy (10/15/2023), Esophagogastroduodenoscopy (10/15/2023), Tonsillectomy and adenoidectomy. Discharge Vitals Temperature (Axillary) 36.9 ???C Heart Rate (Monitored) 75 Respiratory Rate 18 Blood Pressure 102/68 Weight 54.1 kg What to do next Instructions From Your Doctor Event Name Event Result Discharge Activity Ambulate as tolerated Discharge Diet(s) Regular Pending Diagnostic Test Results None Discharge Instructions return to ER if symptoms return or worsen New Follow Up Appointments after Discharge Follow Up with Uriel MEADE When: Within 3 to 5 days Comments: Call for followup appointment Where: [address] , [place] [address]- Business (1) Follow Up with Carolyne Collazo When: Within 7 to 10 days Comments: Call for followup appointment Where: [address] [place] [address]- Business (1) Medications What How Much When Why Instructions Next Dose New famotidine (famotidine 20 mg Tab) 1 Tablets By Mouth 2 times a day Pickup at [facility] #[id number] 06/22 @ 9 pm New metoclopramide (Reglan 5 mg Tab) 1 Tablets By Mouth 4 times a day Pickup at [facility] #[id number] 06/22 before lunch New Misc Prescription (Boost/ Ensure) 0 Twice a day (before meals) Hyperemesis gravidarum 8oz BID x2-4 weeks. Disp #24 (twenty-four) Printed Prescription 06/22 @ 5 pm New naloxone (naloxone 4 mg/ 0.1 mL nasal spray) 4 Milligram Nasal Inhalation As Directed for suspected overdose symptoms Pickup at [facility] 1985 As directed New ondansetron (Zofran ODT 4 mg Tab-Dis) 1 Tablets By Mouth Every 6 hours [id number] As needed for nausea/vomiting New oxycodone (oxyCODONE 5 mg Cap) 1 Capsules By Mouth Every 12 hours as needed for for pain Hyperemesis gravidarum Intractable vomiting Pickup at [facility] 1985 As needed for pain New sucralfate (Carafate 1 g/ 10 mL Susp-Oral) 10 Milliliter By Mouth Four times a day (before meals and at bedtime) Pickup at [facility] #[id number] 06/22 before lunch Changed pantoprazole (Protonix 40 mg Tab-DR) 1 Tablets By Mouth Every day Pickup at [facility] #[id number] 06/23 @ 9 am Changed polyethylene glycol 3350 (MiraLax 3350 Oral Pwdr for Recon 249 gram) 17 Gram By Mouth Everyday 06/23 @ 9 am Unchanged multivitamin, ( 19 ([place])) See instructions Oral 06/23 @ 9 am Unchanged omega-3 polyunsaturated fatty acids (Fish Oil) 500 Milligram By Mouth Every day 06/23 @ 9 am Pharmacy Information [id number]: [address] [place], [place] [id number] [phone] [facility]: [address] [facility] [place] [id number] [phone] What How Much When Comments Stop Taking alprazolam (Xanax 0.5 mg Tab) 1 Tablets By Mouth 3 times a day as needed for for anxiety Stop Taking alprazolam (Xanax) 0.5 Milligram By Mouth 2 times a day Stop Taking cyclophosphamide (cyclophos (more content not included)...Normal [facility] Medical CenterHEMATOLOGYOrdered By: SYSTEM SYSTEM on 06-22-2024 Basophils/100 WBC (Bld)0.3 %Normal0.0 - 2.0 %Remisol HemeBasophils/Leukocytes Auto (Bld) [Pure # fraction]0.0 E9/LNormal0.0 - 0.2 E9/LRemisol HemeEosinophils (Bld) [#/Vol]0.0 E9/LNormal0.0 - 0.5 E9/LRemisol HemeEosinophils/100 WBC (Bld) 0.5 %Normal0.0 - 8.0 %Remisol HemeErythrocyte distribution width (RBC) [Ratio] 14.7 %High10.9 - 14.2 %Remisol HemeHematocrit (Bld) [Volume fraction]32.2 %Low 34.0 - 46.0 %Remisol HemeHemoglobin (Bld) [Mass/Vol]11.1 g/dLLow12.0 - 16.0 gm/dLRemisol HemeLymphocytes (Bld) [#/Vol]1.8 E9/LNormal1.0 - 4.0 E9/LRemisol HemeLymphocytes/100 WBC (Bld)18.1 %Gtgghg98.0 - 50.0 %Remisol HemeMCH (RBC) [Entitic mass]30.4 nbGrdopu07.0 - 34.0 pgRemisol HemeMCHC (RBC) [Mass/Vol]34.5 g/nKHdeigb69.4 - 36.0 gm/dLRemisol HemeMCV (RBC) [Entitic vol]88.1 uOVdkntm02.0 - 100.0 fLRemisol HemeMonocytes (Bld) [#/Vol]0.7 E9/LNormal0.2 - 1.0 E9/LRemisol HemeMonocytes/100 WBC (Bld)7.4 %Normal4.0 - 14.0 %Remisol HemeNeutrophils (Bld) [#/Vol]7.2 E9/LNormal2.0 - 7.5 E9/LRemisol HemeNeutrophils/100 WBC (Bld)73.7 % Akcpbz67.0 - 75.0 %Remisol HemePlatelet mean volume (Bld) [Entitic vol]8.0 fL Normal6.4 - 10.8 fLRemisol HemePlatelets (Bld) [#/Vol]203.0 E9/KBbzgdj605.0 - 500.0 E9/LRemisol HemeRBC (Bld) [#/Vol]3.7 E12/LLow4.3 - 5.9 E12/LRemisol Heme WBC corrected for nucl RBC Auto (Bld) [#/Vol]9.7 E9/LNormal4.0 - 11.0 E9/L Remisol HemeRespiratory Panel by PCRon 47-31-1147Jzmweuzfwc DNA REEMA+non-probe Ql (Nph)Not detectedNormalMercy Health St. Rita'S Medical CenterComment on above:Result Comment: Testing was performed using nucleic acid amplification including Influenza A, Influenza A H1, Influenza A H3, Influenza B, RSV A, RSV B, Adenovirus, Human Metapneumovirus, Parainfluenza 1,2,3, and 4, Rhinovirus, Bordetella parapertussis/bronchiseptica, Bordetella holmesii, and Bordetella pertussis.Performed By: #### [id number] #### [facility] [address], [place] [address]S. holmesii DNA REEMA+probe Ql (Unsp spec)Not detectedNormal [facility]'S Medical CenterComment on above:Performed By: #### [id number] #### [facility] [address], [place] [address]K. parapertussis DNA REEMA+probe Ql (Upper resp)Not detected NormalNot DetectedMercy Health St. Rita'S Medical CenterComment on above:Performed By: #### [id number] #### [facility] [address] [place] [address] 43[address]FMTNKJQBQT PERTUSSIS DNA:PRTHR:PT:XXX:ORD:Not detectedNormalNot DetectedMercy Health St. Rita'S Medical CenterComment on above:Performed By: #### [id number] #### [facility] [address] [place] [address] 87[address]NRMHO H1 RNA REEMA+non-probe Ql (Nph)Not detectedNormalMercy Health St. Rita'S Medical CenterComment on above:Performed By: #### [id number] #### [facility] [address] [place] [address] 54[address]SQPZN H3 RNA REEMA+non-probe Ql (Nph)Not detectedNormalMercy Health St. Rita'S Medical CenterComment on above:Performed By: #### [id number] #### [facility] [address], [place] [address]RCBGN RNA REEMA+non-probe Ql (Nph)Not detectedNormalMercy Health St. Rita'S Medical CenterComment on above:Performed By: #### [id number] #### [facility] [address] [place] [address]UOYVZ RNA REEMA+non-probe Ql (Nph)Not detectedNormalMercy Health St. Rita'S Medical CenterComment on above:Performed By: #### [id number] #### [facility] [address], [place] [address]Mwbpu MetapneumovirusNot detectedNoSumma Health Wadsworth - Rittman Medical CenterComment on above:Result Comment: This test result should be correlated with clinical presentations and medical history by a healthcare provider to determine its clinical significance.Performed By: #### [id number] #### [facility] [address] [place] [address] 69[address]Ttbztrzbiuljs virus 1 RNA REEMA+non-probe Ql (Nph)Not detected [facility] HospitalComment on above:Performed By: #### [id number] #### [facility] [address] [place] [address] 199[address]Qssgmxnzgcpgq virus 2 RNA REEMA+non-probe Ql (Nph)Not detected NormalMercy Health St. Rita'S Medical CenterComment on above:Performed By: #### [id number] #### [facility] [address], [place] [address]Zepmvzmjrbzow virus 3 RNA REEMA+non-probe Ql (Nph)Not detected NormalMercy Health St. Rita'S Medical CenterComment on above:Performed By: #### [id number] #### [facility] [address], [place] [address]Oncheshlckqbh virus 4 RNA REEMA+non-probe Ql (Nph)Not detected [facility] HospitalComment on above:Performed By: #### [id number] #### [facility] [address], [place] [address]Mydg Panel Intrl QCPassNormalMercy Health St. Rita'S Medical CenterComment on above:Performed By: #### [id number] #### [facility] [address], [place] [address]Ukgbzkhczq+Enterovirus RNA REEMA+non-probe Ql (Nph)Detected AbnormalMercy Health St. Rita'S Medical CenterComment on above:Performed By: #### [id number] #### [facility] [address], [place] [address]LKP A RNA REEMA+probe Ql (Nph)Not detectedNormalMercy Health St. Rita'S Medical CenterComment on above:Performed By: #### [id number] #### [facility] [address], [place] [address]THC B RNA REEMA+probe Ql (Nph)Not detectedNormalMercy Health St. Rita'S Medical CenterComment on above:Performed By: #### [id number] #### [facility] [address], [place] [address]vAUFdv 03-64-6837lURP902 mL/min/1.73 f4Heyduf>=59[facility]S Medical CenterComment on above:Performed By: #### [id number] #### [facility] [address], [place] [address]SCEdr 73-64-9788Fqpnq gap [Moles/Vol]9 mmol/LNormal6-16[facility] Medical CenterComment on above:Performed By: #### [id number] #### [facility] [address], [place] [address]Flzzipl [Mass/Vol]8.3 mg/dLLow8.9-11.1FBethesda North HospitalComment on above:Performed By: #### [id number] #### [facility] [address], [place] [address]Spoyfqma [Moles/Vol]107 mmol/GPvwffb621-632KdoolpMercy Health St. Rita'S Medical CenterComment on above:Performed By: #### [id number] #### [facility] [address], [place] [address]YY5 [Moles/Vol]24 mmol/TLbhiry66-18GfvqsoMercy Health St[address] [facility] Comment on above:Performed By: #### [id number] #### [facility] [address], [place] [address]Tibodrdjjz [Mass/Vol]0.6 mg/dLNormal0.5-1.3FBethesda North HospitalComment on above:Performed By: #### [id number] #### [facility] [address], [place] [address]Dpvprtp [Mass/Vol]95 mg/cURporpr97-902WffqndMercy Health St. Rita'S Medical CenterComment on above:Performed By: #### [id number] #### [facility] [address], [place] [address]Mfgvesfex [Moles/Vol]3.6 mmol/LNormal3.5-5.3FBethesda North HospitalComment on above:Performed By: #### [id number] #### [facility] [address], [place] [address]Axhbzo [Moles/Vol]136 mmol/ZPntqbm603-076DehmfgMercy Health St. Rita'S Medical CenterComment on above:Performed By: #### [id number] #### [facility] [address], [place] [address]Ntwd nitrogen [Mass/Vol]9 mg/dLNormal5-21[facility]S Medical CenterComment on above:Performed By: #### [id number] #### [facility] [address] [place] [address]Rbqy nitrogen/Creatinine [Mass ratio]15 No ReiskIlnwvl66-[address] [facility]S Medical CenterComment on above:Performed By: #### [id number] #### [facility] [address] [place] [address]AKA w/ Auto Diffon 76-06-6910Uqwmqzgbm/100 WBC (Bld)0.2 %Normal 0.0-2.0[facility]'S Medical CenterComment on above:Performed By: #### [id number] #### [facility] [address] [place] [address]Gzudilsna/Leukocytes Auto (Bld) [Pure # fraction]0.0 E9/LNormal 0.0-0.2FBethesda North HospitalComment on above:Performed By: #### [id number] #### [facility] [address] [place] [address]Mazzmikithd (Bld) [#/Vol]0.1 E9/LNormal0.0-0.5FBethesda North HospitalComment on above:Performed By: #### [id number] #### [facility] [address] [place] [address]Myytzexfjpz/100 WBC (Bld)0.5 %Normal0.0-8.0[facility]'S Medical CenterComment on above:Performed By: #### [id number] #### [facility] [address] [place] [address]Femgehsjfzj distribution width (RBC) [Ratio]14.3 %High10.9-14.[address] [facility]'S Medical CenterComment on above:Performed By: #### [id number] #### [facility] [address] [place] [address]Dglooszhah (Bld) [Volume fraction]35.5 %Tebkjb52.0-46.0[facility]'S Medical CenterComment on above:Performed By: #### [id number] #### [facility] [address] [place] [address]Bwimdsoizu (Bld) [Mass/Vol]12.1 g/gRIhtony03.0-16.0[facility]'S Medical CenterComment on above:Performed By: #### [id number] #### [facility] [address] [place] [address]Kgqdyoikqtm (Bld) [#/Vol]1.2 E9/LNormal1.0-4.0[facility] Medical CenterComment on above:Performed By: #### [id number] #### [facility] [address] [place] [address]Fckfagwsufh/100 WBC (Bld)8.0 %Low14.0-50.0[facility] Medical CenterComment on above:Performed By: #### [id number] #### [facility] [address] [place] [address] 36[address]VCA (RBC) [Entitic mass]29.9 buOvdxpc57.0-34.0[facility] Medical CenterComment on above:Performed By: #### [id number] #### [facility] [address] [place] [address]XYUX (RBC) [Mass/Vol]34.2 g/wDFetieg79.4-36.0[facility] Medical CenterComment on above:Performed By: #### [id number] #### [facility] [address] [place] [address]NRF (RBC) [Entitic vol]87.5 lVToeimm03.0-100.0[facility] Medical CenterComment on above:Performed By: #### [id number] #### [facility] [address] [place] [address]Fkkexhcdt (Bld) [#/Vol]0.9 E9/LNormal0.2-1.0[facility] Medical CenterComment on above:Performed By: #### [id number] #### [facility] [address] [place] [address]Heweysfgugf (Bld) [#/Vol]12.4 E9/LHigh2.0-7.5FBethesda North HospitalComment on above:Performed By: #### [id number] #### [facility] [address] [place] [address]Cjomibdrmwr/100 WBC (Bld)84.9 %High36.0-75.0[facility]S Medical CenterComment on above:Performed By: #### [id number] #### [facility] [address] [place] [address]Kyzqgvsv mean volume (Bld) [Entitic vol]8.1 fLNormal6.4-10.[address] [facility] Medical CenterComment on above:Performed By: #### [id number] #### [facility] [address] [place] [address]Fvyfpxucb (Bld) [#/Vol]221.0 E9/NNrozzl751.0-500.0[facility] Medical CenterComment on above:Performed By: #### [id number] #### [facility] [address] [place] [address]33[address]MBB (Bld) [#/Vol]4.1 E12/LLow4.3-5.9[facility] Comment on above:Performed By: #### [id number] #### [facility] [address] [place] [address]NMJ corrected for nucl RBC Auto (Bld) [#/Vol]14.6 E9/LHigh 4.0-11.0[facility] Medical CenterComment on above:Result Comment: Peripheral smear review performed.Performed By: #### [id number] #### [facility] [address] [place] [address]PFEZOTATHWwqvlfg By: SYSTEM SYSTEM on 39-02-4511Quaui gap [Moles/Vol]9 mmol/LNormal6 - 16 mEq/LRemisol ChemCalcium [Mass/Vol]8.3 mg/dLLow 8.9 - 11.1 mg/dLRemisol ChemChloride [Moles/Vol]107 mmol/PVwjtuc402 - 111 mmol/L Remisol ChemCO2 [Moles/Vol]24 mmol/UDeibub51 - 31 mmol/LRemisol ChemCreatinine [Mass/Vol]0.6 mg/dLNormal0.5 - 1.3 mg/dLRemisol QrqofJCK321 mL/min/1.73 z8Aqgnbm >=59mL/min/1.73 y8Kyhxwun ChemGlucose [Mass/Vol]95 mg/yLNgdwit59 - 199 mg/dL Remisol ChemLipase [Catalytic activity/Vol]25 U/IBtfbpz96 - 58 unit/LRemisol ChemPotassium [Moles/Vol]3.6 mmol/LNormal3.5 - 5.3 mmol/LRemisol ChemSodium [Moles/Vol]136 mmol/SAubfxl496 - 145 mmol/LRemisol ChemUrea nitrogen [Mass/Vol]9 mg/dLNormal5 - 21 mg/dLRemisol ChemUrea nitrogen/Creatinine [Mass ratio]15 mg/htYvoenl37 - 20Remisol ChemEstradiolon 09-53-8512U4 [Mass/Vol]1082.0 pg/mL Invalid Interpretation CodeBlue Ridge Regional Hospitaler Saint Luke InstituteComment on above:Result Comment: Adult Female Range Follicular phase 12.5 - 166.0 Ovulation phase 85.8 - 498.0 Luteal phase 43.8 - 211.0 Postmenopausal <6.0 - 54.7 1st trimester 215.0 - >4300.0 Carolin ECLIA methodology Performed at: [facility] [address] [id number] PhD Randa OchoaPerformed By: #### [id number] #### [facility] [address] [place] [address]QKBPWCETWPLxfajvm By: SYSTEM SYSTEM on 58-73-7682Zjkxaowee/100 WBC (Bld)0.2 %Normal0.0 - 2.0 %Remisol HemeBasophils/Leukocytes Auto (Bld) [Pure # fraction]0.0 E9/LNormal0.0 - 0.2 E9/LRemisol HemeEosinophils (Bld) [#/Vol]0.1 E9/LNormal0.0 - 0.5 E9/LRemisol HemeEosinophils/100 WBC (Bld)0.5 %Normal0.0 - 8.0 %Remisol HemeErythrocyte distribution width (RBC) [Ratio]14.3 %High10.9 - 14.2 %Remisol HemeHematocrit (Bld) [Volume fraction]35.5 %Siaagq47.0 - 46.0 % Remisol HemeHemoglobin (Bld) [Mass/Vol]12.1 g/qTPfeuku05.0 - 16.0 gm/dLRemisol HemeLymphocytes (Bld) [#/Vol]1.2 E9/LNormal1.0 - 4.0 E9/LRemisol Heme Lymphocytes/100 WBC (Bld)8.0 %Low14.0 - 50.0 %Remisol HemeMCH (RBC) [Entitic mass]29.9 igPfjtyk33.0 - 34.0 pgRemisol HemeMCHC (RBC) [Mass/Vol]34.2 g/dLNormal 31.4 - 36.0 gm/dLRemisol HemeMCV (RBC) [Entitic vol]87.5 yFKforma77.0 - 100.0 fL Remisol HemeMonocytes (Bld) [#/Vol]0.9 E9/LNormal0.2 - 1.0 E9/LRemisol Heme Monocytes/100 WBC (Bld)6.4 %Normal4.0 - 14.0 %Remisol HemeNeutrophils (Bld) [#/Vol]12.4 E9/LHigh2.0 - 7.5 E9/LRemisol HemeNeutrophils/100 WBC (Bld)84.9 % High36.0 - 75.0 %Remisol HemePlatelet mean volume (Bld) [Entitic vol]8.1 fL Normal6.4 - 10.8 fLRemisol HemePlatelets (Bld) [#/Vol]221.0 E9/HAvppiw282.0 - 500.0 E9/LRemisol HemeRBC (Bld) [#/Vol]4.1 E12/LLow4.3 - 5.9 E12/LRemisol Heme WBC corrected for nucl RBC Auto (Bld) [#/Vol]14.6 E9/LHigh4.0 - 11.0 E9/LRemisol HemeComment on above:Result Comment: Peripheral smear review performed.Lipase Levelon 50-25-7860Dzcrup [Catalytic activity/Vol]25 U/LStndgh44-93AmiboqMercy Health St. Rita'S Medical CenterComment on above:Performed By: #### [id number] #### [facility] [address], [place] [address]jLFOvl 13-07-6086yMVZ853 mL/min/1.73 v0Fexmlq>=59[facility]'S Medical CenterComment on above:Performed By: #### [id number] #### [facility] [address], [place] [address]QUUfz 53-54-4050Gkbza gap [Moles/Vol]10 mmol/LNormal6-16[facility] Medical CenterComment on above:Performed By: #### [id number] #### [facility] [address], [place] [address]Jdllcpa [Mass/Vol]8.5 mg/dLLow8.9-11.1FBethesda North HospitalComment on above:Performed By: #### [id number] #### [facility] [address], [place] [address]Rtyquxjs [Moles/Vol]107 mmol/BZbaksi104-660UyrpdjMercy Health St. Rita'S Medical CenterComment on above:Performed By: #### [id number] #### [facility] [address], [place] [address]NA4 [Moles/Vol]23 mmol/NJhqimm58-87DlowtvMercy Health St. [facility]'S [facility] Comment on above:Performed By: #### [id number] #### [facility] [address], [place] [address]Oqxaoufukk [Mass/Vol]0.6 mg/dLNormal0.5-1.3FBethesda North HospitalComment on above:Performed By: #### [id number] #### [facility] [address], [place] [address]Tusococ [Mass/Vol]106 mg/bCEpcpls98-205ZyqzddMercy Health St. Rita'S Medical CenterComment on above:Performed By: #### [id number] #### [facility] [address], [place] [address]Ukzbjuhxn [Moles/Vol]3.5 mmol/LNormal3.5-5.3FBethesda North HospitalComment on above:Performed By: #### [id number] #### [facility] [address], [place] [address]Dshbms [Moles/Vol]136 mmol/ZAebwlm081-524SiixrmMercy Health St. Rita'S Medical CenterComment on above:Performed By: #### [id number] #### [facility] [address], [place] [address]Xxgd nitrogen [Mass/Vol]10 mg/dLNormal5-21[facility] Medical CenterComment on above:Performed By: #### [id number] #### [facility] [address], [place] [address]Ckcq nitrogen/Creatinine [Mass ratio]17 No QrutfCtahar63-[address] [facility]'S Medical CenterComment on above:Performed By: #### [id number] #### [facility] [address], [place] [address]QzYD Quanton 01-88-0544XZL.beta subunit Mu98958 m[IU]/mLHigh1-[address] [facility]S Medical CenterComment on above:Result Comment: 'F NON < 1 - 3' ' 0.2 - 1 WEEK = 5 TO 50' ' 1 - 2 WEEKS = 50 - 500' ' 2 - 3 WEEKS = 100 - 5000' ' 3 - 4 WEEKS = 500 - 68849' ' 4 - 5 WEEKS = 1000 - 26824' ' 5 - 6 WEEKS = 06774 - 591125' ' 6 - 8 WEEKS = 38057 - 080678' ' 8 - 12 WEEKS = 28848 - 262286'Performed By: #### [id number] #### [facility] [address], [place] [address]XOI w/Indiceson 96-11-7472Zpgwgopczci distribution width (RBC) [Ratio]14.6 %High10.9-14.2FBethesda North HospitalComment on above:Performed By: #### [id number] #### [facility] [address] [place] [address] 62139Dflvjkydti (Bld) [Volume fraction]36.5 %Xjaicc85.0-46.0[facility]'S Medical CenterComment on above:Performed By: #### [id number] #### [facility] [address] [place] [address] 34213Bypgmjqjkk (Bld) [Mass/Vol]12.5 g/rQYrhbak86.0-16.0[facility]S Medical CenterComment on above:Performed By: #### [id number] #### [facility] [address] [place] [address] 43368XJY (RBC) [Entitic mass]29.6 oaGuliac38.0-34.0[facility]'S Medical CenterComment on above:Performed By: #### [id number] #### [facility] [address] [place] [address] 84907YAKB (RBC) [Mass/Vol]34.1 g/nEHutvxe57.4-36.0[facility] Medical CenterComment on above:Performed By: #### [id number] #### [facility] [address] [place] [address] 57703TBZ (RBC) [Entitic vol]86.8 gBWfbvya15.0-100.0[facility] Medical CenterComment on above:Performed By: #### [id number] #### [facility] [address] [place] [address] 16679Pybsszta518.0 E9/LBcvuor264.0-500.0[facility] Comment on above:Performed By: #### [id number] #### [facility] [address], [place] [address]Jnbswrlv mean volume (Bld) [Entitic vol]7.8 fLNormal6.4-10.[address] [facility]S Medical CenterComment on above:Performed By: #### [id number] #### [facility] [address], [place] [address]OEV (Bld) [#/Vol]4.2 E12/LLow4.3-5.9[facility] Comment on above:Performed By: #### [id number] #### [facility] [address], [place] [address]BAG size Nom (Bld)NORMALInvalid Interpretation CodeMercy Health St. Rita'S Medical CenterComment on above:Performed By: #### [id number] #### [facility] [address] [place] [address] 92948UWN corrected for nucl RBC Auto (Bld) [#/Vol]17.7 E9/LHigh 4.0-11.0[facility] Medical CenterComment on above:Performed By: #### [id number] #### [facility] [address], [place] [address]THGCIZGCNBhvgqpv By: SYSTEM SYSTEM on 71-53-2801Lqolj gap [Moles/Vol]10 mmol/LNormal6 - 16 mEq/LRemisol ChemCalcium [Mass/Vol]8.5 mg/dLLow 8.9 - 11.1 mg/dLRemisol ChemChloride [Moles/Vol]107 mmol/YWlmkpc960 - 111 mmol/L Remisol ChemCO2 [Moles/Vol]23 mmol/CUjougx76 - 31 mmol/LRemisol ChemCreatinine [Mass/Vol]0.6 mg/dLNormal0.5 - 1.3 mg/dLRemisol JckehVLA342 mL/min/1.73 l5Becjub >=59mL/min/1.73 v3Viccndc ChemGlucose [Mass/Vol]106 mg/gFMkkdsg48 - 199 mg/dL Remisol ChemMagnesium [Mass/Vol]1.8 mg/dLNormal1.3 - 2.4 mg/dLRemisol Chem Potassium [Moles/Vol]3.5 mmol/LNormal3.5 - 5.3 mmol/LRemisol ChemSodium [Moles/Vol]136 mmol/GIcwvei010 - 145 mmol/LRemisol ChemUrea nitrogen [Mass/Vol] 10 mg/dLNormal5 - 21 mg/dLRemisol ChemUrea nitrogen/Creatinine [Mass ratio]17 mg/thZhgwnp11 - 20Remisol ChemED Note-Physicianon 90-67-7864ZD Note-PhysicianED Note-Physician Basic Information Time Seen: Johny Laura MD 06/19/2024 11:02 Chief Complaint pt rpeorts being six weeks prgenant, has been seen for bleeding already. denies any current bleeding. woke up with n/v and abd pain with epigastric pain/bruning. History of Present Illness The patient is a female that is 6 weeks that comes in with complaints of vomiting and epigastric pain. The patient reports she has a history of esophagitis last year and felt a similar burning pain, she stopped using the medication she was given at that time. She reports chest pain that is painful to breathe in and is exacerbated when she vomits. She reports these symptoms began this morning when she woke up. She said she has not had much morning sickness thus far in her . She says she still feels nauseous but has nothing left in her to throw up. This is her 3rd . She reports marijuana use at home. Denies sick contacts. Denies vaginal bleeding, urinary symptoms. Physical Exam Vitals & Measurements T: 36.8 ???C(Oral) HR: 81(Peripheral) RR: 18 BP: 112/81 SpO2: 100% HT: 167 cm WT: 48.9 kg BMI: 17.53 General: alert, anxious appearing Skin: warm, dry Head: no trauma, normocephalic Neck: No JVD, full ROM Eye: normal conjunctiva, EOMI ENMT: mucosa moist Cardiovascular: regular rate and rhythm, normal peripheral perfusion Respiratory: Lungs CTA, respirations non labored Chest wall: no deformity. Gastrointestinal: Back: Normal ROM, Normal alignment. Extremities: no deformity, no trauma Neurological: LOC appropriate for age, speech normal Psychiatric: cooperative, affect appropriate for age, normal judgement, normal psychiatric thoughts. Medical Decision Making I discussed the case with her PA student. We then interviewed and examined the patient. Patient states that the vomiting started suddenly this morning. Accompanying the vomiting is severe epigastric and low substernal discomfort. This pain does not radiate through to the back. It is aggravated by the vomiting. Patient states she is approximately 6 weeks . She did have an ultrasound this past Sunday. This would be the patient's third . She has had a previous exploratory laparoscopy. Patient does have a history of esophagitis in the past. Patient states that she does use marijuana on daily basis. Physical exam shows a thin white female she is awake and attentive she does appear to be quite uncomfortable. She is leaning forward over the emesis bag. Skin is warm but diaphoretic. The heart is regular. Lungs are clear to auscultation good air entry no adventitious sounds. The abdomen is flat soft tender in the epigastric but no guarding or rebound. I rechecked the patient shortly before 2 PM. She is no longer diaphoretic at this time. She is ableto lean back rather than hunched forward. Palpation of the abdomen shows no guarding or rebound. Much less tender. We did discuss using narcotics with the patient. She request pain relief and is willing to take the narcotics at this time. Her only concern was that the . Gallbladder ultrasound was negative for gallbladder disease. I rechecked the patient shortly before 4 PM. The patient states that the vomiting returned and withthe return of the vomiting the severe pain returned. We have been unable to control the vomiting here. She states she has a history of previous esophagitis which is verified on her chart. I discussedthe case with her GEOPHYSICS SCIENTIST, Dr. Meade. He states the patient can be admitted to medicine he will consult. I discussed case with Dr. Gilbert from the hospitalist staff. He would prefer to consult but have the patient admitted to GEOPHYSICS SCIENTIST. Assessment/Plan 1. Esophagitis (K20.90: Esophagitis, unspecified without bleeding) 2. Intractable vomiting (R11.10: Vomiting, unspecified) 3. First trimester (Z34.91: Encounter for supervision of normal , unspecified, first trimester) Orders: dicyclomine, 20 mg = 2 mL, Injection, IntraMuscular, Once, Stop date 06/19/24 12:49:00 EDT, STAT, Start date 06/19/24 12:49:00 EDT, 06/19/24 12:49:00 EDT famotidine, 20 mg = 2 mL, Soln-IV, IV Push, Once, Stop date 06/19/24 11:20:00 EDT, STAT, Start date06/19/24 11:20:00 EDT, 06/19/24 11:20:00 EDT morphine, 4 mg = 1 mL, Injection, IV Push, Once, Stop date 06/19/24 13:51:00 EDT, STAT, Start date 06/19/24 13:51:00 EDT, 06/19/24 13:51:00 EDT ondansetron, 4 mg = 2 mL, Injection, IV Push, Once, Stop date 06/19/24 11:20:00 EDT, STAT, Start date 06/19/24 11:20:00 EDT, 06/19/24 11:20:00 EDT promethazine 12.5 mg + Sodium Chloride 0.9% intravenous solution 50 mL, Injection, IV Piggyback, Once, Stop date 06/19/24 11:20:00 EDT, STAT, Start date 06/19/24 11:20:00 EDT, 151.5 mL/hr, Infuse over 20 minute(s) promethazine 12.5 mg + Sodium Chloride 0.9% intravenous solution 50 mL, Injection, IV Piggyback, Once, Stop date 06/19/24 13:51:00 EDT, STAT, Start date 06/19/24 13:51:00 EDT, 151.5 mL/hr, Infuse over 20 minute(s) So (more content not included)...[facility] HospitalComment on above:Result Comment: Electronically Signed By: Boo Pina M.D. H\.br\Date and Time Signed: 06/20/2501:15 EDT\.br\Electronically Co-Signed By: Keith Martinez Comment: Electronically Signed By: Boo Pina M.D. H\.br\Date and Time Signed: 06/20/2501:15 EDT\.br\Electronically Co-Signed By: Johny Laura MD\.br\Date and Time Co-Signed: 06/19/24 17:01 EDTHEMATOLOGYOrdered By: SYSTEM SYSTEM on 16-46-1739Sxmvurixbvv distribution width (RBC) [Ratio]14.6 %High10.9 - 14.2 %Remisol HemeHematocrit (Bld) [Volume fraction]36.5 %Qhxcby95.0 - 46.0 %Remisol HemeHemoglobin (Bld) [Mass/Vol]12.5 g/eERllwid72.0 - 16.0 gm/dL Remisol HemeMCH (RBC) [Entitic mass]29.6 ppCklaxa20.0 - 34.0 pgRemisol HemeMCHC (RBC) [Mass/Vol]34.1 g/aXYfhlmn92.4 - 36.0 gm/dLRemisol HemeMCV (RBC) [Entitic vol]86.8 wVGqctpk18.0 - 100.0 fLRemisol XltzIqpuisuo826.0 E9/XImlffz706.0 - 500.0 E9/LRemisol HemePlatelet mean volume (Bld) [Entitic vol]7.8 fLNormal6.4 - 10.8 fLRemisol HemeRBC (Bld) [#/Vol]4.2 E12/LLow4.3 - 5.9 E12/LRemisol HemeRBC size Nom (Bld)NORMAL *NA* (06/20/24 6:53 AM)Invalid Interpretation CodeRemisol HemeWBC corrected for nucl RBC Auto (Bld) [#/Vol]17.7 E9/LHigh4.0 - 11.0 E9/LRemisol HemeInterdisciplinary Note - Case Manageron 22-35-2589Jbgwgswjfekqbnwen Note - Taffy Puller Interdisciplinary Note - Taffy Puller CRM to room 315 Patient is alert awake and oriented. She is not feeling well and is with pain/ nausea. Patient has emesis bag, her back is being massaged by her guest in room. Patient was recently medicated. CRM didupdate Dr Gilbert on her symptoms still. Patient was able to verify PCP, DME and insurance. Patientis 6 weeks , came in with Nausea and pain. Patient will have no DC needs from CRM. She has support at home and prior to hospital stay independent in self care. Patient was provided CRM contact, white board updated. CRM following Dr Gilbert is adding IV fluids and ReglanNormalMer[facility] St[facility] Comment on above:Result Comment: Electronically Signed By: Manju Man\Date and Time Signed: 06/20/24 12:06 EDTMagnesiumon 86-38-0842Vmckiarzg [Mass/Vol]1.8 mg/dLNormal1.3-2.4[facility] InstituteComment on above: Performed By: #### [id number] #### [facility] [address], [place] [address]Hzuzxyuxtzxfjm 34-41-8982Httevxuuixxr Lvl67.98 ng/mLInvalid Interpretation CodeMercy Health St. Rita'S Medical CenterComment on above:Result Comment: 'F NON FOLLICULAR = 0.10 - 0.60' 'LUTEAL = 3.00 - 17.5' 'MIDLUTEAL = 3.30 - 18.6' 'POST-MENOPAUSE = 0.10 - 0.40' '-FIRST TRIMESTER = 8.30 - 66.5' 'SECOND TRIMESTER = 18.9 - 66.1' 'THIRD TRIMESTER = 35.8 - 312.4' 'MALES = 0.14 - 2.06' Result Verified by DilutionPerformed By: #### [id number] #### [facility] [address], [place] [address]BR Transvaginalon 41-86-7491EZ Transvaginal Exam Date/Time: 06/20/2024 07:55 EDT Reason for Exam: Other (please specify) Report IMPRESSION: Early single live intrauterine gestation. Composite Ultrasound Age: 6 weeks, 2 days, which corresponds to the estimated gestational age by LMP. Subchorionic hemorrhage, minimally changed from 06/16/2024 and measuring up to 2.8 cm. CLINICAL HISTORY: History of embryo transfer on 05/27/2024. Follow-up. Gestational Age by LMP: 6 weeks, 2 days RENO from average ultrasound age: 1202/11/2025 Composite Ultrasound Age: 6 weeks, 2 days COMPARISON: 06/16/2024. COMMENT: Transvaginal images were obtained. The uterus measures 10.6 x 7.1 x 4.7 cm for total volume of around 186.4 mL. A single gestational sac within the uterine fundus with a diameter of: Mean Sac Diameter: 1.4 cm A yolk sac and small pole within the gestational sac. The crown-rump length and the corresponding gestational age +/- 1 week are: [place] Rump Length: 0.4 cm Composite Ultrasound Age: 6 weeks, 2 days RENO from average ultrasound age: 1202/11/2025 Again, subchorionic hemorrhage posteriorly, measuring around 1.8 x 2.8 x 1.5 cm, minimally changed from 06/16/2024 given difference in measurement technique/positioning. The heart rate is measured at 115 bpm. The ovaries were not well-visualized. No significant findings within the adnexal regions. There is no free fluid in the cul-de-sac. Ordering Provider: Samantha QUINN FINAL REPORT Dictated: 06/20/2024 8:49 am Oneil Valadez MD Signed (Electronic Signature): 06/20/2024 8:49 am Signed by: Oneil Valadez MD Transcribed by: JURGEN Technologist: [facility] HospitaleGFRon 63-12-3747gXGZ634 mL/min/1.73 x5Roxqcz>=59[facility]S Medical CenterComment on above:Performed By: #### [id number] #### [facility] [address], [place] [address]Jmektaqwh 44-55-2498Jorsojd [Catalytic activity/Vol]84 U/L Eumnib97-737GtlpajMercy Health St. Rita'S Medical CenterComment on above:Performed By: #### [id number] #### [facility] [address], [place] [address]TJScj 84-09-1539Rzeyu gap [Moles/Vol]13 mmol/LNormal6-16[facility] Medical CenterComment on above:Performed By: #### [id number] #### [facility] [address], [place] [address]Ecllfxs [Mass/Vol]9.0 mg/dLNormal8.9-11.1FBethesda North HospitalComment on above:Performed By: #### [id number] #### [facility] [address], [place] [address]Razavxtt [Moles/Vol]107 mmol/JXjlout111-532QzjzieMercy Health St. Rita'S Medical CenterComment on above:Performed By: #### [id number] #### [facility] [address], [place] [address]LG0 [Moles/Vol]21 mmol/PGjwwgj31-78JwtdzaMercy Health St. [facility]'S Medical Center Comment on above:Performed By: #### [id number] #### [facility] [address], [place] [address]Iziezaxeyf [Mass/Vol]0.7 mg/dLNormal0.5-1.3FBethesda North HospitalComment on above:Performed By: #### [id number] #### [facility] [address], [place] [address]Kelnujb [Mass/Vol]119 mg/eGBmedwu45-669WdwcscMercy Health St. Rita'S Medical CenterComment on above:Performed By: #### [id number] #### [facility] [address], [place] [address]Snlevpxrx [Moles/Vol]3.7 mmol/LNormal3.5-5.3FBethesda North HospitalComment on above:Performed By: #### [id number] #### [facility] [address], [place] [address]Qqytpn [Moles/Vol]137 mmol/EYgtifu922-045HvwhnwMercy Health St. Rita'S Medical CenterComment on above:Performed By: #### [id number] #### [facility] [address], [place] [address]Kqln nitrogen [Mass/Vol]18 mg/dLNormal5-21[facility]S Medical CenterComment on above:Performed By: #### [id number] #### [facility] [address], [place] [address]Ythb nitrogen/Creatinine [Mass ratio]26 No TjzaaPvfa90-18OidaenMercy Health St. Rita'S Medical CenterComment on above:Performed By: #### [id number] #### [facility] [address] [place] [address]NNV w/ Auto Diffon 39-23-0333Lukjpnqno/100 WBC (Bld)0.2 %Normal 0.0-2.0[facility]S Medical CenterComment on above:Performed By: #### [id number] #### [facility] [address] [place] [address]Asltkaiao/Leukocytes Auto (Bld) [Pure # fraction]0.0 E9/LNormal 0.0-0.2FBethesda North HospitalComment on above:Performed By: #### [id number] #### [facility] [address] [place] [address]Isypninyynx (Bld) [#/Vol]0.0 E9/LNormal0.0-0.5FBethesda North HospitalComment on above:Performed By: #### [id number] #### [facility] [address] [place] [address]Kfgrrmbsape/100 WBC (Bld)0.1 %Normal0.0-8.0[facility]S Medical CenterComment on above:Performed By: #### [id number] #### [facility] [address] [place] [address]Rutrwfhenmu distribution width (RBC) [Ratio]14.3 %High10.9-14.[address] [facility]S Medical CenterComment on above:Performed By: #### [id number] #### [facility] [address] [place] [address] 23[address]Rdaqdijtsx (Bld) [Volume fraction]40.1 %Qlexzr93.0-46.0[facility]S Medical CenterComment on above:Performed By: #### [id number] #### [facility] [address] [place] [address]Atpapwcium (Bld) [Mass/Vol]13.3 g/wEZokmgw16.0-16.0[facility] Medical CenterComment on above:Performed By: #### [id number] #### [facility] [address] [place] [address] 04[address]Sgpkbzwjrkh (Bld) [#/Vol]1.5 E9/LNormal1.0-4.0[facility]S Medical CenterComment on above:Performed By: #### [id number] #### [facility] [address] [place] [address]Luvdpepagtp/100 WBC (Bld)8.4 %Low14.0-50.0[facility]'S Medical CenterComment on above:Performed By: #### [id number] #### [facility] [address] [place] [address] 65873QDC (RBC) [Entitic mass]29.1 poFcxtmw47.0-34.0[facility]'S Medical CenterComment on above:Performed By: #### [id number] #### [facility] [address] [place] [address] 928[address]WGVZ (RBC) [Mass/Vol]33.2 g/uBArekjb81.4-36.0[facility]S Medical CenterComment on above:Performed By: #### [id number] #### [facility] [address] [place] [address] 35[address]EKK (RBC) [Entitic vol]87.5 sJOwdher70.0-100.0[facility]'S Medical CenterComment on above:Performed By: #### [id number] #### [facility] [address] [place] [address]Zqmngpdho (Bld) [#/Vol]0.6 E9/LNormal0.2-1.0[facility]'S Medical CenterComment on above:Performed By: #### [id number] #### [facility] [address] [place] [address] 67[address]Bucfevllusd (Bld) [#/Vol]15.4 E9/LHigh2.0-7.5FBethesda North HospitalComment on above:Performed By: #### [id number] #### [facility] [address], [place] [address]Axhocipcpfg/100 WBC (Bld)87.7 %High36.0-75.0[facility]'S Medical CenterComment on above:Performed By: #### [id number] #### [facility] [address], [place] [address]Ruajrvjk732.0 E9/RZqftya747.0-500.0[facility] Comment on above:Performed By: #### [id number] #### [facility] [address] [place] [address]Gqkpyats mean volume (Bld) [Entitic vol]7.6 fLNormal6.4-10.[address] [facility] Medical CenterComment on above:Performed By: #### [id number] #### [facility] [address] [place] [address]85[address]GSF (Bld) [#/Vol]4.6 E12/LNormal4.3-5.9[facility]S Medical CenterComment on above:Performed By: #### [id number] #### [facility] [address] [place] [address]40[address]MET corrected for nucl RBC Auto (Bld) [#/Vol]17.5 E9/LHigh 4.0-11.0[facility]S Medical CenterComment on above:Performed By: #### [id number] #### [facility] [address] [place] [address]WUXRBDNPEIdtuxaw By: SYSTEM SYSTEM on 59-99-9833Bnxinuwy HS2.40 pg/mLLow10.10 - 27.10 pg/mLRemisol ChemComment on above:Interpretive Data: The 95% CI (Confidence Interval) PPV (Positive Predictive Value) for myocardial i nfarction in females is 38 pg/mL, in males 51 pg/mL. The results should be used in conjunction withclinical conditions of myocardial infarction. (Access High Sensitivity Troponin I Instructions For Use, Jade Saleem, October 2017)Albumin [Mass/Vol]3.8 g/dLNormal3.3 - 5.0 gm/dLRemisol Chem Albumin/Globulin [Mass ratio]1.4 {ratio}Normal1.1 - 2.2Remisol ChemALP [Catalytic activity/Vol]40 [iU]/tFnlvqr52 - 98 Int._Unit/LRemisol ChemALT No additional P-5'-P [Catalytic activity/Vol]14 [iU]/dNormal6 - 46 Int._Unit/L Remisol ChemAmylase [Catalytic activity/Vol]84 U/MAvncxx75 - 157 unit/LRemisol ChemAST [Catalytic activity/Vol]13 [iU]/dNormal5 - 43 Int._Unit/LRemisol Chem Bilirubin [Mass/Vol]0.5 mg/dLNormal0.0 - 1.1 mg/dLRemisol ChemBilirubin.direct [Mass/Vol]0.1 mg/dLNormal0.0 - 0.4 mg/dLRemisol ChemBilirubin.indirect [Mass or moles/Vol]0.4 mg/dLNormal0.1 - 0.9 mg/dLRemisol ChemGlobulin (S) [Mass/Vol]2.7 g/dLNormal1.4 - 4.0 gm/dLRemisol ChemLipase [Catalytic activity/Vol]84 U/LHigh13 - 58 unit/LRemisol ChemProtein [Mass/Vol]6.5 g/dLNormal6.0 - 7.8 gm/dLRemisol ChemTroponin HSpg/mLLow10.10 - 27.10 pg/mLRemisol ChemComment on above: Interpretive Data: The 95% CI (Confidence Interval) PPV (Positive Predictive Value) for myocardial infarction in females is 38 pg/mL, in males 51 pg/mL. The results should be used in conjunction withclinical conditions of myocardial infarction. (Access High Sensitivity Troponin I Instructions For Use, Jade Saleem, October 2017)ED Clinical Summaryon [id number] Clinical SummaryED Clinical Summary [address] [address] ED Clinical Summary Person Information Name: [facility] Age: 28 Years : 1995 Sex: Female Language: Nauruan PCP: Collazo MD, Peter D Marital Status: Phone: [phone] Visit Id: Visit Reason: Abdominal pain - ; Epigastric Pain; Nausea and vomiting; 6 WEEKS , VOMITING Speciality: Acuity: 3 Enc Type: Observation Med Service: Medical Arrival: 06/19/2024 10:47:59 Discharge: LOS: 000 10:47 Checkin: 06/19/2024 10:47:59 Checkout: 06/19/2024 21:34:58 Dispo Type: Admitted as IP to this [facility] EVENTS: Event Name Event Status Request Date/Time Start Date/Time Complete Date/Time Arrive Complete 06/19/2024 10:47:59 06/19/2024 10:47:59 06/19/2024 10:47:59 Document Home Meds Request 06/19/2024 10:47:59 Triage Complete 06/19/2024 10:47:59 06/19/2024 10:50:48 06/19/2024 10:50:48 Bed Assign Complete 06/19/2024 10:47:59 06/19/2024 10:47:59 06/19/2024 10:47:59 Dr Exam Complete 06/19/2024 10:47:59 06/19/2024 10:51:11 06/19/2024 10:51:11 RN Exam Complete 06/19/2024 10:47:59 06/19/2024 10:55:34 06/19/2024 10:55:34 Registration Complete 06/19/2024 10:51:11 06/19/2024 11:13:50 06/19/2024 11:13:50 EKG Complete 06/19/2024 10:51:53 06/19/2024 10:58:28 Dr Exam Complete 06/19/2024 11:02:36 06/19/2024 11:02:36 06/19/2024 11:02:36 Reg Complete Request 06/19/2024 11:13:50 Reg Bed Request Complete 06/19/2024 11:13:50 06/19/2024 11:13:50 06/19/2024 11:13:50 Meds Admin Complete 06/19/2024 11:20:59 06/19/2024 11:31:29 Pending Labs Complete 06/19/2024 11:20:59 06/19/2024 12:50:04 Lab Complete 06/19/2024 11:20:59 06/19/2024 12:50:04 Pending Labs Complete 06/19/2024 11:53:28 06/19/2024 11:53:28 06/19/2024 12:19:12 Lab Complete 06/19/2024 11:53:28 06/19/2024 11:53:28 06/19/2024 12:19:12 Pending Labs Complete 06/19/2024 11:55:49 06/19/2024 11:55:49 06/19/2024 11:55:50 Meds Admin Complete 06/19/2024 12:49:38 06/19/2024 13:04:59 Meds Admin Complete 06/19/2024 13:51:48 06/19/2024 14:05:40 Pending Labs Complete 06/19/2024 14:00:03 06/19/2024 15:47:02 US Complete 06/19/2024 14:00:03 06/19/2024 14:04:33 06/19/2024 14:23:28 X-Ray Complete 06/19/2024 14:02:31 06/19/2024 14:27:31 06/19/2024 14:28:27 Wet Read Request 06/19/2024 14:28:27 Meds Admin Complete 06/19/2024 16:28:04 06/19/2024 16:51:52 Consult Request 06/19/2024 16:28:22 Hospitalist Consult Request 06/19/2024 16:28:23 Meds Admin Complete 06/19/2024 16:51:52 06/19/2024 18:03:38 Meds Admin Complete 06/19/2024 17:06:17 06/19/2024 17:09:35 Dr Exam Complete 06/19/2024 19:10:18 06/19/2024 19:10:18 06/19/2024 19:10:18 Registration Complete 06/19/2024 19:10:18 06/19/2024 19:21:29 06/19/2024 19:21:29 Observation Request 06/19/2024 20:29:55 Patient Care Request 06/19/2024 20:29:56 Patient Care Request 06/19/2024 20:29:57 Patient Care Request 06/19/2024 20:29:58 Patient Care Request 06/19/2024 20:29:58 Discharge Complete 06/19/2024 21:16:35 06/19/2024 21:16:35 06/19/2024 21:16:35 Transfer Complete 06/19/2024 21:16:35 06/19/2024 21:16:35 06/19/2024 21:16:35 ADDRESS: [address] [place] [id number] PHYS DOC NOTES: MEDICAL INFORMATION: Prescriptions Given: Medications to Continue with No Changes Other Medications alprazolam (Xanax 0.5 mg Tab) 1 Tablets By Mouth 3 times a day as needed for anxiety. alprazolam (Xanax) 0.5 Milligram By Mouth 2 times a day. cyclophosphamide (cyclophosphamide 50 mg oral capsule) fluticasone-salmeterol (Advair HFA 115 mcg-21 mcg/inh inhalation aerosol with adapter) 2 Puffs Inhalation 2 times a day as needed Shortness of breath or wheezing. lamotrigine (lamotrigine 25 mg Tab) 42 EA, 0 Refill(s), TAKE 1 TABLET BY MOUTH DAILY FOR 14 DAYS THEN TAKE 1 TABLET BY MOUTH TWICE DAILY. methylphenidate (Ritalin 20 mg oral tablet) 40 EA, 0 Refill(s), TAKE 1 TABLET BY MOUTH EVERY MORNING AND 1 TABLET EVERY NIGHT AT BEDTIME. methylphenidate (Ritalin 20 mg oral tablet) 1 Tablets By Mouth 2 times a day. pantoprazole (Pantoprazole [address] Tab) 1 Tablets By Mouth every day. Refills: 4. pantoprazole (Pantoprazole [address] Tab) 30 EA, 0 Refill(s). pantoprazole (Protonix 40 mg Tab-EC) 1 Tablets By Mouth every day. Take 30 minutes before breakfast. Refills: 1. polyethylene glycol 3350 (Miralax 3350 17 gram packet) 17 Gram By Mouth every day. Refills: 5. polyethylene glycol 3350 (MiraLax 3350 Oral Pwdr for Recon 249 gram) 17 Gram By Mouth every day. Refills: 0. PATIENT EDUCATION INFORMATION: Instructions: Follow up: DIAGNOSIS: 1:Esophagitis; 2:Intractable vomiting; 3:First trimester ; 4:On deep vein thrombosis (DVT)prophylaxisNoCox Branson Medical CenterED Note-Nursing on [id number] Note-NursingED Note-Nursing Assumed care of patient. Patient awaiting admission acceptance. Resting in bed at this time. Report called to Zaria WHITE on 3 north.[facility] CenterED [facility]-NursingED Note-Nursing This RN spoke with Ko pharmacist regarding 2nd morphine dose and 3rd dose of Phenergan. Kostated that morphine was safe in to repeat, stated that Phenergan admiration needed to wait until 1800 to give 3rd dose. Ko to retime order.[facility] CenterED Patient Education Noteon [id number] Patient Education NoteED Patient Education NoteNoCox Branson Medical CenterED Patient Summaryon [id number] Patient SummaryED Patient Summary [place] [id number] Patient Discharge Instructions Person Information Name: INDU ST Age: 28 Years Arrival Date: 06/19/2024 10:47:59 Discharge Diagnosis: 1:Esophagitis; 2:Intractable vomiting; 3:First trimester ; 4:On deep vein thrombosis (DVT) prophylaxis Primary Care Physician: Carolyne Collazo MD Provider Information Primary Provider: Johny Laura MD Advanced Data Quality Consultant:None The exam and treatment you received in the Emergency Department were for an urgent problem and are not intended as complete care. It is important that you follow up with a doctor, nurse practitioner,or physician???s purchasing administrative assistant for ongoing care. If your symptoms become worse or you do not improve asexpected and you are unable to reach your usual health care provider, you should return to the Emergency Department. We are available 24 hours a day. INDU ST has been given the following list of patient education materials, prescriptions and follow-up instructions: Follow-up Instructions: In the event that this physician does not participate in your insurance network, please consult with your insurance company to find a nearby participating provider. Patient Education Materials: A MESSAGE TO ALL PATIENTS REGARDING OPIOIDS PRESCRIPTION OPIOIDS: WHAT YOU NEED TO KNOW Prescription opioids can be used to help relieve noeecock-yk-orsxak pain and are often prescribed following a surgery or injury, or for certain health conditions. These medications can be an important part of the treatment but also come with serious risks. It is important to work with your healthcare provider to make sure you are getting the safest, most effective care. WHAT ARE THE RISKS AND SIDE EFFECTS OF OPIOID USE? Prescription opioids carry serious risks of addiction and overdose, especially with prolonged use. An opioid overdose, often marked by slowed breathing, can cause sudden . The use of prescription opioids can have a number of side effects as well, even when taken as directed: ??? Tolerance???meaning you might need to take more of the medication for the same pain relief ??? Physical dependence???meaning you have symptoms of withdrawal when a medication is stopped ??? Increased sensitivity to pain ??? Constipation ??? Nausea, vomiting, and dry mouth ??? Sleepiness and dizziness ??? Confusion ??? Depression ??? Low levels of testosterone that can result in lower sex drive, energy, and strength ??? Itching and sweating RISKS ARE GREATER WITH: ??? History of drug misuse, substance use disorder, or overdose ??? Mental health conditions (such as depression or anxiety) ??? Sleep apnea ??? Older age (65 years and older) ??? Avoid alcohol while taking prescription opioids. Also, unless specifically advised by your health care provider, medications to avoid include: ??? Benzodiazepines (such as Xanax or Valium) ??? Muscle relaxants (such as Soma or Flexeril) ??? Hypnotics (such as Ambien or Lunesta) ??? Other prescription opioids KNOW YOUR OPTIONS Talk to your health care provider about ways to manage your pain that don???t involve prescription opioids. Some of these options may actually work better and have fewer risks and side effects. Options may include: ??? Pain relievers such as acetaminophen, ibuprofen, and naproxen ??? Some medication that are also used for depression or seizures ??? Physical therapy and exercise ??? Cognitive behavioral therapy, a psychological, goal-directed approach, in which patients learn how to modify physical, behavioral, and emotional triggers of pain and stress. IF YOU ARE PRESCRIBED OPIOIDS FOR PAIN: ??? Never take opioids in greater amounts or more often than prescribed. ??? Follow up with your primary health care provider. o Work together to create a plan on how to manage your pain. o Talk about ways to help manage your pain that don???t involve prescription opioids. o Talk about any and all concerns and side effects. ??? Help prevent misuse and abuse o Never sell or share prescription opioids. o Never use another person???s prescription opioids. ??? Store prescription opioids in a secure place and out of reach of others (this may include visitors, children, friends, and family). ??? Safely dispose of unused prescription opioids: Find your community drug take-back program or your pharmacy mail-back program, or flush them down the toilet, following guidance from the Food and Drug Administration (www.fda.gov/Drugs/ResourcesForYou). ??? Visit www.cdc.gov/drugoverdose to learn about the risks of opioids abuse and overdose. ??? If you believe you may be struggling with addiction, tell your health healthcare interpreter and askfor guidance or call [facility]???S National Helpline at 8-770-448-QLLQ. (more content not included)...[facility] Valley HospitalExtra Blueon [id number] Collected PlasmaYesInvalid Interpretation [facility] CenterComment on above:Performed By: #### [id number] #### [facility] [address] [place] [address] [id number] By: SYSTEM SYSTEM on 02-33-3527Uzseycuqv/100 WBC (Bld)0.2 %Normal0.0 - 2.0 %Remisol HemeBasophils/Leukocytes Auto (Bld) [Pure # fraction]0.0 E9/LNormal0.0 - 0.2 E9/LRemisol HemeEosinophils (Bld) [#/Vol]0.0 E9/LNormal0.0 - 0.5 E9/LRemisol HemeEosinophils/100 WBC (Bld)0.1 %Normal0.0 - 8.0 %Remisol HemeLymphocytes (Bld) [#/Vol]1.5 E9/LNormal1.0 - 4.0 E9/LRemisol HemeLymphocytes/100 WBC (Bld)8.4 %Low14.0 - 50.0 %Remisol HemeMonocytes (Bld) [#/Vol]0.6 E9/LNormal0.2 - 1.0 E9/LRemisol HemeMonocytes/100 WBC (Bld)3.6 %Low 4.0 - 14.0 %Remisol HemeNeutrophils (Bld) [#/Vol]15.4 E9/LHigh2.0 - 7.5 E9/L Remisol HemeNeutrophils/100 WBC (Bld)87.7 %High36.0 - 75.0 %Remisol HemeHep Func Panelon 57-44-5043Vmamxbm [Mass/Vol]3.8 g/dLNormal3.3-5.0[facility] Rita'S Medical CenterComment on above:Performed By: #### [id number] #### [facility] [address] [place] [address] 55136Ecyglyx/Globulin (S) [Mass conc ratio]1.9Rhsgjq1.1-2.2FBethesda North HospitalComment on above:Performed By: #### [id number] #### [facility] [address] [place] [address] 304[address]MWN [Catalytic activity/Vol]40 Int._Unit/KTealoy44-82CuwnfeMercy Health St. Rita'S Medical CenterComment on above:Performed By: #### [id number] #### [facility] [address], [place] [address]ZKA No additional P-5'-P [Catalytic activity/Vol]14 Int._Unit/L Normal6-46[facility]'S Medical CenterComment on above:Performed By: #### [id number] #### [facility] [address], [place] [address]TZK [Catalytic activity/Vol]13 Int._Unit/LNormal5-43[facility]'S Medical CenterComment on above:Performed By: #### [id number] #### [facility] [address], [place] [address]Wkatyyjuk [Mass/Vol]0.5 mg/dLNormal0.0-1.1FBethesda North HospitalComment on above:Performed By: #### [id number] #### [facility] [address] [place] [address] 79[address]Pgebmxhlh.direct [Mass/Vol]0.1 mg/dLNormal0.0-0.4FBethesda North HospitalComment on above:Performed By: #### [id number] #### [facility] [address] [place] [address]11[address]Qcnohtlhv.indirect [Mass or moles/Vol]0.4 mg/dLNormal0.1-0.[address] [facility]'S Medical CenterComment on above:Performed By: #### [id number] #### [facility] [address] [place] [address]Jlmytoes (S) [Mass/Vol]2.7 g/dLNormal1.4-4.0[facility] Rita'S Medical CenterComment on above:Performed By: #### [id number] #### [facility] [address] [place] [address]28[address]Chqotvn [Mass/Vol]6.5 g/dLNormal6.0-7.8[facility] Rita'S Medical CenterComment on above:Performed By: #### [id number] #### [facility] [address] [place] [address]Zuewon Levelon 01-79-4209Wnujor [Catalytic activity/Vol]84 U/L Ihks85-07JabpgrMercy Health St. Rita'S Medical CenterComment on above:Performed By: #### [id number] #### [facility] [address] [place] [address]Fce-Pjpzrjx Noteon 80-91-0119Avw-Arrival NotePre-Arrival Note Pre-Arrival Summary Name: , Current Date: 06/19/2024 10:48:27 EDT Gender: Date of : Age: 28 Pre-Arrival Type: EMS ETA: 06/19/2024 11:07:00 EDT Primary Care Physician: Presenting Problem: 6 wk preggers with vomiting Pre-Arrival User: Mechelle Babin RN Referring Source: Location: [place] Completion Date/Time: 06/19/2024 10:37:00 [facility] Emergency Department Pre-Hospital Report Form Vital Signs: Pre-Hospital Report: Treatment in Route: Response to Treatment: Misc. Issues:NormalMercy Health St. Rita'S Medical CenterTroponin 0 Hr.on 06-19-2024 Troponin HS<2.91Zxq57.10-27.10[facility] Rita'S Medical CenterComment on above:Result Comment: The 95% CI (Confidence Interval) PPV (Positive Predictive Value) for myocardial infarction in females is 38 pg/mL, in males 51 pg/mL. The results should be used in conjunction with clinical conditions of myocardial infarction. (Access High Sensitivity Troponin I Instructions For Use, Beyond the Rack, October 2017)Performed By: #### [id number] #### [facility] [address], [place] [address]Oxgmxedt 3 Hr.on 65-27-8107Jqllvijc HS2.40 pg/mLLow10.10-27.[address] [facility]S Medical CenterComment on above:Result Comment: The 95% CI (Confidence Interval) PPV (Positive Predictive Value) for myocardial infarction in females is 38 pg/mL, in males 51 pg/mL. The results should be used in conjunction with clinical conditions of myocardial infarction. (Access High Sensitivity Troponin I Instructions For Use, Beyond the Rack, October 2017)Performed By: #### [id number] #### [facility] [address], [place] [address]LE with Cult Rflxon 47-05-3772Wtvtxckfk Ql (U)NegativeNormal NegativeMercy Health St. Rita'S Medical CenterComment on above:Performed By: #### [id number] #### [facility] [address], [place] [address]Ocpangf (U)ClearNormalClearMercy Health St. Rita'S Medical CenterComment on above:Performed By: #### [id number] #### [facility] [address] [place] [address]Glakn (U)YellowNormalYellowMercy Health St. Rita'S Medical CenterComment on above:Result Comment: Microscopic readings are only performed on those samples that meet specific criteria set forth by [facility].Performed By: #### [id number] #### [facility] [address] [place] [address] 16[address]Amynpil Ql (U)NegativeNormalNegativeMercy Health St. Rita'S Medical Center Comment on above:Performed By: #### [id number] #### [facility] [address] [place] [address] 707[address]Yrgibmkqzi Auto test strip (U) [Mass/Vol]NegativeNormalNegative [facility]S Medical CenterComment on above:Performed By: #### [id number] #### [facility] [address] [place] [address]Jeraozx Auto test strip Ql (U)2+ mg/dLAbnormalNegAvita Health System Ontario HospitalComment on above:Performed By: #### [id number] #### [facility] [address] [place] [address]Emjdfvdjo esterase Auto test strip Ql (U)NegativeNormalNegative [facility]S Medical CenterComment on above:Performed By: #### [id number] #### [facility] [address] [place] [address]25[address]Xqvikmi Auto test strip Ql (U)NegativeNormalNegativeMercy Health St. Rita'S Medical CenterComment on above:Performed By: #### [id number] #### [facility] [address] [place] [address] 96858sX (U)6.0 [pH]Invalid Interpretation Code5.0-9.0[facility]. Rita'S Medical CenterComment on above:Performed By: #### [id number] #### [facility] [address] [place] [address] 103[address]Nkrgdjt Ql (U)TraceAbnormalNegativeMercy Health St. Rita'S Medical Center Comment on above:Performed By: #### [id number] #### [facility] [address], [place] [address]Oxrancul gravity (U) [Rel density]1.025Invalid Interpretation Code1.005-1.030[facility]. Rita'S Medical CenterComment on above:Performed By: #### [id number] #### [facility] [address], [place] [address]Cjhenpcxpjti (U) [Mass/Vol]NegativeNormalNegativeMercy Health St. Rita'S Medical CenterComment on above:Performed By: #### [id number] #### [facility] [address] [place] [address]25[address]Xyqe of Urine collection methodClean CatchOhio Valley HospitalComment on above:Performed By: #### [id number] #### [facility] [address] [place] [address]PASZMEUHLFBbwztpe By: SYSTEM SYSTEM on 15-68-4510Zbdktshyk Ql (U)NegativeNormalNegativemg/dLFT UA Auto SSClarity (U)Clear (06/19/24 12:40 PM)NormalClearFTM UA Auto SSColor (U)Yellow 1 (06/19/24 12:40 PM)NormalYellowFT UA Auto SSComment on above:Interpretive Data: Microscopic readings are only performed on those samples that meet specific criteria set forth by [facility].Glucose Ql (U) NegativeNormalNegativemg/dLFT UA Auto SSHemoglobin Auto test strip (U) [Mass/Vol]NegativeNormalNegativemg/dLFT UA Auto SSKetones Auto test strip Ql (U)2+ mg/dLInvalid Interpretation CodeNegativemg/dLFT UA Auto SSLeukocyte esterase Auto test strip Ql (U)NegativeNormalNegativeLeu/uLFT UA Auto SS Nitrite Auto test strip Ql (U)NegativeNormalNegativemg/dLFT UA Auto SSpH (U) 6.0 *NA* (06/19/24 12:40 PM)Invalid Interpretation Code5.0 - 9.0[facility] [place] UA Auto SSProtein Ql (U)Trace mg/dLInvalid Interpretation CodeNegativemg/dLOU [facility] [place] UA Auto SSSpecific gravity (U) [Rel density]1.025 *NA* (06/19/24 12:40 PM)Invalid Interpretation Code1.005 - 1.030[facility] UA Auto SS Urobilinogen (U) [Mass/Vol]NegativeNormalNegativemg/dLOU [facility]ICAL [facility] [place] UA Auto SSURINALYSIS Ordered By: Johny Laura on [id number] Spec DescClean Catch (06/19/24 12:40 PM)NormalOU MEDICAL [facility] [place] UA Auto SS us Gallbladderon [id number] GallbladderExam Date/Time: 06/19/2024 14:23 EDT Reason for Exam: Abdominal pain Report IMPRESSION: NORMAL EXAMINATION. EXAMINATION: US Gallbladder HISTORY: Abdominal pain COMPARISON: None available TECHNIQUE: Ultrasound evaluation was performed of the right upper quadrant of the abdomen FINDINGS: Normal echogenicity and contour of the liver. No liver lesion or intrahepatic biliary dilatation identified. Liver length measured at approximately 17.6 cm. The gallbladder is physiologically distended. No cholelithiasis or pericholecystic fluid. Gallbladder wall thickness is normal measured at approximately 2.1 mm. Common bile duct is normal measuring approximately 2.9 mm in diameter. No overt abnormality of the pancreas. Ordering Provider: Johny Laura FINAL REPORT Dictated: 06/19/2024 2:42 pm Jade Payton DO Signed (Electronic Signature): 06/19/2024 2:42 pm Signed by: Jade Payton DO Transcribed by: JURGEN Technologist: [facility] HospitalXR Chest Single Viewon [id number] Chest Single ViewExam Date/Time: 06/19/2024 14:28 EDT Reason for Exam: Chest pain Report IMPRESSION: NO RADIOGRAPHIC EVIDENCE OF ACUTE INTRATHORACIC PROCESS. EXAM: XR Chest Single View History: Chest pain Technique: Portable AP view of the chest. Comparison: Chest pain Findings: The cardiomediastinal silhouette is within normal limits. No pneumothorax, pleural effusion, or consolidation. No acute osseous abnormality. Ordering Provider: Johny Laura FINAL REPORT Dictated: 06/19/2024 2:52 pm Jade Payton DO Signed (Electronic Signature): 06/19/2024 2:52 pm Signed by: Jade Payton DO Transcribed by: JURGEN Technologist: KristanMercy Health St. Rita'S Medical CentereGFRon [id number] mL/min/1.73 z2Qdtgcg>=59[address] [facility] [address] Rita'S Medical CenterComment on above:Performed By: #### [id number] #### [facility] [address], [place] [address]Uriiwetlzvp [id number] [Mass/Vol]172.0 pg/mLInvalid Interpretation [facility] CenterComment on above:Result Comment: Adult Female Range Follicular phase 12.5 - 166.0 Ovulation phase 85.8 - 498.0 Luteal phase 43.8 - 211.0 Postmenopausal <6.0 - 54.7 1st trimester 215.0 - >4300.0 Carolin ECLIA methodology Performed at: [facility] [address] [id number] PhD Randa OchoaPerformed By: #### [id number] #### [facility] [address] [place] [address] 565[address]RxYY Quanton [id number].beta subunit [id number] m[IU]/mLHigh1-[address] [facility]'S Medical CenterComment on above:Result Comment: 'F NON < 1 - 3' ' 0.2 - 1 WEEK = 5 TO 50' ' 1 - 2 WEEKS = 50 - 500' ' 2 - 3 WEEKS = 100 - 5000' ' 3 - 4 WEEKS = 500 - 24928' ' 4 - 5 WEEKS = 1000 - 09116' ' 5 - 6 WEEKS = 86452 - 711033' ' 6 - 8 WEEKS = 39080 - 194779' ' 8 - 12 WEEKS = 03462 - 692231'Performed By: #### [id number] #### [facility] [address], [place] [address]EQUBASQFTQgvgqxj By: SYSTEM SYSTEM on 76-63-0951XKV.beta subunit [id number] m[IU]/mLHigh1 - 3 mIU/mLRemisol ChemComment on above:Result Comment: 'F NON < 1 - 3' ' 0.2 - 1 WEEK = 5 TO 50' ' 1 - 2 WEEKS = 50 - 500' ' 2 - 3 WEEKS = 100 - 5000' ' 3 - 4 WEEKS = 500 - 59544' ' 4 - 5 WEEKS = 1000 - 66604' ' 5 - 6 WEEKS = 72947 - 669541' ' 6 - 8 WEEKS = 10164 - 500550' ' 8 - 12 WEEKS = 80061 - 887078'Progesterone Lvl38.45 ng/mLInvalid Interpretation CodeRemisol ChemComment on above:Result Comment: 'F NON FOLLICULAR = 0.10 - 0.60' 'LUTEAL = 3.00 - 17.5' 'MIDLUTEAL = 3.30 - 18.6' 'POST-MENOPAUSE = 0.10 - 0.40' '-FIRST TRIMESTER = 8.30 - 66.5' 'SECOND TRIMESTER = 18.9 - 66.1' 'THIRD TRIMESTER = 35.8 - 312.4' 'MALES = 0.14 - 2.06'Progesteroneon 67-89-2515Qafjjqsxgokw Lvl38.45 ng/mLInvalid Interpretation SheebaMercy Health St. Rita'S Medical CenterComment on above:Result Comment: 'F NON FOLLICULAR = 0.10 - 0.60' 'LUTEAL = 3.00 - 17.5' 'MIDLUTEAL = 3.30 - 18.6' 'POST-MENOPAUSE = 0.10 - 0.40' '-FIRST TRIMESTER = 8.30 - 66.5' 'SECOND TRIMESTER = 18.9 - 66.1' 'THIRD TRIMESTER = 35.8 - 312.4' 'MALES = 0.14 - 2.06'Performed By: #### [id number] #### [facility] [address], [place] [id number] Transvaginalon [id number] Transvaginal Exam Date/Time: 06/16/2024 14:31 EDT Reason for Exam: THREATNED MISCARRAIGE Report IMPRESSION: EARLY INTRAUTERINE CORRESPONDING TO Composite Ultrasound Age: 5 weeks, 5 days. APPROXIMATELY 3.1 CM SUBCHORIONIC HEMORRHAGE POSTERIORLY. EXAM: US Transvaginal, US Transvaginal DATE: 06/16/2024 1:52 PM CLINICAL HISTORY: THREATENED MISCARRIAGE. COMPARISON: 06/13/2024. TECHNIQUE: Transvaginal ultrasound of the pelvis was performed. FINDINGS: The study is mild to moderately limited by the patient's body habitus. A first trimester gestational sac is again noted within the central aspect of the uterine body/fundus. The mean sac diameter is approximately 1 cm, which corresponds Composite Ultrasound Age: 5 weeks, 5 days, +/- 1 week. Since the prior study, an approximately 3.1 x 2.5 x 1.1 cm posterior subchorionic hemorrhage has developed, approximately 50% of the gestational sac circumference. There is no significant free pelvic fluid, or other findings of concern identified. Abdomen liver is identified, secondary to overlying bowel gas. The uterine measurements and estimated volume: 10.1 x 7.0 x 5.2, 192 mL Ordering Provider: , FINAL REPORT Dictated: 06/16/2024 3:13 pm Arun Bhatia MD Signed (Electronic Signature): 06/16/2024 3:13 pm Signed by: Arun Bhatia MD Transcribed by: JURGEN Technologist: ChrisMercy Health St. Rita'S Medical CenterEstradiolon [id number] [Mass/Vol]1761.0 pg/mLInvalid Interpretation [facility] CenterComment on above:Result Comment: Adult Female Range Follicular phase 12.5 - 166.0 Ovulation phase 85.8 - 498.0 Luteal phase 43.8 - 211.0 Postmenopausal <6.0 - 54.7 1st trimester 215.0 - >4300.0 Carolin ECLIA methodology Performed at: [facility] [address] [id number] PhD Randa Ramírezformed By: #### [id number] #### [facility] [address] [place] [address]MiHK Quanton [id number].beta subunit [id number] m[IU]/mLHigh1-[address] [facility]S Medical CenterComment on above:Result Comment: 'F NON < 1 - 3' ' 0.2 - 1 WEEK = 5 TO 50' ' 1 - 2 WEEKS = 50 - 500' ' 2 - 3 WEEKS = 100 - 5000' ' 3 - 4 WEEKS = 500 - 43495' ' 4 - 5 WEEKS = 1000 - 45829' ' 5 - 6 WEEKS = 73216 - 834908' ' 6 - 8 WEEKS = 00835 - 686708' ' 8 - 12 WEEKS = 17845 - 167756'Performed By: #### [id number] #### [facility] [address], [place] [address]NTSORNJXVYpgcztj By: SYSTEM SYSTEM on 28-05-1319SOK.beta subunit Nr9929 m[IU]/mLHigh1 - 3 mIU/mLRemisol ChemComment on above:Result Comment: 'F NON < 1 - 3' ' 0.2 - 1 WEEK = 5 TO 50' ' 1 - 2 WEEKS = 50 - 500' ' 2 - 3 WEEKS = 100 - 5000' ' 3 - 4 WEEKS = 500 - 20379' ' 4 - 5 WEEKS = 1000 - 03305' ' 5 - 6 WEEKS = 97227 - 092004' ' 6 - 8 WEEKS = 38689 - 804611' ' 8 - 12 WEEKS = 89862 - 668272'Progesterone Lvl62.84 ng/mLInvalid Interpretation CodeRemisol ChemComment on above:Result Comment: 'F NON FOLLICULAR = 0.10 - 0.60' 'LUTEAL = 3.00 - 17.5' 'MIDLUTEAL = 3.30 - 18.6' 'POST-MENOPAUSE = 0.10 - 0.40' '-FIRST TRIMESTER = 8.30 - 66.5' 'SECOND TRIMESTER = 18.9 - 66.1' 'THIRD TRIMESTER = 35.8 - 312.4' 'MALES = 0.14 - 2.06' Result Verified by DilutionProgesteroneon 51-68-3758Xwncqlusxugk Lvl62.84 ng/mL Invalid Interpretation CodeBoaz Saint Luke InstituteComment on above:Result Comment: 'F NON FOLLICULAR = 0.10 - 0.60' 'LUTEAL = 3.00 - 17.5' 'MIDLUTEAL = 3.30 - 18.6' 'POST-MENOPAUSE = 0.10 - 0.40' '-FIRST TRIMESTER = 8.30 - 66.5' 'SECOND TRIMESTER = 18.9 - 66.1' 'THIRD TRIMESTER = 35.8 - 312.4' 'MALES = 0.14 - 2.06' Result Verified by DilutionPerformed By: #### [id number] #### [facility] [address], [place] [address]YQ Transvaginalon [id number] Transvaginal Exam Date/Time: 06/13/2024 07:26 EDT Reason for Exam: O09.00 Report IMPRESSION: GESTATIONAL SAC IDENTIFIED WITH ABSENT POLE. DIFFERENTIAL INCLUDES EARLY INTRAUTERINE . SHORT-TERM FOLLOW-UP PELVIC SONOGRAPHY WITH BETA HCG CORRELATION RECOMMENDED FOR FURTHER EVALUATION AND CONFIRMATION. CLINICAL HISTORY: O COMPARISON: NONE. FINDINGS: A gestational sac surrounded by decidual reaction is visualized within the uterus. No intrauterine identified. Yolk sac visualized measuring 1.4 mm. Mean sac diameter 7 mm yielding estimated sonographic gestational age of 5 weeks 2 days. Right ovary visualized and is normal in size, shape, and echogenicity. Left ovary not visualized. No free fluid. No adnexal masses. Technical Comments: Ordering Provider: , FINAL REPORT Dictated: 06/13/2024 8:53 am Willi Barros MD Signed (Electronic Signature): 06/13/2024 8:53 am Signed by: Willi Barros MD Transcribed by: JURGEN Technologist: ChrisMercy Health St. Rita'S Medical CenterEstradiolon [id number] [Mass/Vol]112.0 pg/mLInvalid Interpretation [facility] CenterComment on above:Result Comment: Adult Female Range Follicular phase 12.5 - 166.0 Ovulation phase 85.8 - 498.0 Luteal phase 43.8 - 211.0 Postmenopausal <6.0 - 54.7 1st trimester 215.0 - >4300.0 Carolin ECLIA methodology Performed at: [facility] [id number] PhD Randa OchoaPerformed By: #### [id number] #### [facility] [address], [place] [address]OsQK Quanton 11-71-5389URV.beta subunit Qn677 m[IU]/mLHigh1-[address] [facility]'S Medical CenterComment on above:Result Comment: 'F NON < 1 - 3' ' 0.2 - 1 WEEK = 5 TO 50' ' 1 - 2 WEEKS = 50 - 500' ' 2 - 3 WEEKS = 100 - 5000' ' 3 - 4 WEEKS = 500 - 53454' ' 4 - 5 WEEKS = 1000 - 69041' ' 5 - 6 WEEKS = 55608 - 743312' ' 6 - 8 WEEKS = 08842 - 869520' ' 8 - 12 WEEKS = 17828 - 151781'Performed By: #### [id number] #### [facility] [address], [place] [address]TDJRFYMFFEcwfogf By: SYSTEM SYSTEM on 14-98-3021HVJ.beta subunit Qn677 m[IU]/mLHigh1 - 3 mIU/mLRemisol ChemComment on above:Result Comment: 'F NON < 1 - 3' ' 0.2 - 1 WEEK = 5 TO 50' ' 1 - 2 WEEKS = 50 - 500' ' 2 - 3 WEEKS = 100 - 5000' ' 3 - 4 WEEKS = 500 - 50456' ' 4 - 5 WEEKS = 1000 - 17173' ' 5 - 6 WEEKS = 73866 - 930787' ' 6 - 8 WEEKS = 13242 - 552899' ' 8 - 12 WEEKS = 51047 - 304894'Progesterone Lvl43.84 ng/mLInvalid Interpretation CodeRemisol ChemComment on above:Result Comment: 'F NON FOLLICULAR = 0.10 - 0.60' 'LUTEAL = 3.00 - 17.5' 'MIDLUTEAL = 3.30 - 18.6' 'POST-MENOPAUSE = 0.10 - 0.40' '-FIRST TRIMESTER = 8.30 - 66.5' 'SECOND TRIMESTER = 18.9 - 66.1' 'THIRD TRIMESTER = 35.8 - 312.4' 'MALES = 0.14 - 2.06' Result Verified by [facility] Qn1.56 m[IU]/LNormal0.34 - 5.60 mcIU/mLRemisol ChemProgesteroneon 28-31-2050Prkriazeqprb Lvl43.84 ng/mLInvalid Interpretation [facility] CenterComment on above:Result Comment: 'F NON FOLLICULAR = 0.10 - 0.60' 'LUTEAL = 3.00 - 17.5' 'MIDLUTEAL = 3.30 - 18.6' 'POST-MENOPAUSE = 0.10 - 0.40' '-FIRST TRIMESTER = 8.30 - 66.5' 'SECOND TRIMESTER = 18.9 - 66.1' 'THIRD TRIMESTER = 35.8 - 312.4' 'MALES = 0.14 - 2.06' Result Verified by DilutionPerformed By: #### [id number] #### [facility] [address], [place] [address]Zskxowbjw Laboratory TestingOrdered By: Generated DomainUser on [id number] [Mass/Vol]112.0 pg/mLInvalid Interpretation [facility] SendOutsSS Comment on above:Result Comment: Adult Female Range Follicular phase 12.5 - 166.0 Ovulation phase 85.8 - 498.0 Luteal phase 43.8 - 211.0 Postmenopausal <6.0 - 54.7 1st trimester 215.0 - >4300.0 Carolin ECLIA methodology Performed at: [facility] [id number] PhD Randa Nichole 64-54-2346ONP Qn1.56 m[IU]/LNormal 0.34-5.60[facility] Rita'S Medical CenterComment on above:Performed By: #### [id number] #### [facility] [address], [place] [address]AsCH Quanton 53-83-5328CIB.beta subunit Qn264 m[IU]/mLHigh1-[address] [facility] Medical CenterComment on above:Result Comment: 'F NON < 1 - 3' ' 0.2 - 1 WEEK = 5 TO 50' ' 1 - 2 WEEKS = 50 - 500' ' 2 - 3 WEEKS = 100 - 5000' ' 3 - 4 WEEKS = 500 - 18362' ' 4 - 5 WEEKS = 1000 - 57831' ' 5 - 6 WEEKS = 00427 - 731385' ' 6 - 8 WEEKS = 95589 - 613234' ' 8 - 12 WEEKS = 53781 - 515726'Performed By: #### [id number] #### [facility] [address], [place] [address]CMBJHTUWSBqoduqo By: SYSTEM SYSTEM on 69-73-5844QEB.beta subunit Qn264 m[IU]/mLHigh1 - 3 mIU/mLRemisol ChemComment on above:Result Comment: 'F NON < 1 - 3' ' 0.2 - 1 WEEK = 5 TO 50' ' 1 - 2 WEEKS = 50 - 500' ' 2 - 3 WEEKS = 100 - 5000' ' 3 - 4 WEEKS = 500 - 52261' ' 4 - 5 WEEKS = 1000 - 68878' ' 5 - 6 WEEKS = 54959 - 755942' ' 6 - 8 WEEKS = 46455 - 534563' ' 8 - 12 WEEKS = 17659 - 190738'Progesterone Lvl58.23 ng/mLInvalid Interpretation CodeRemisol ChemComment on above:Result Comment: 'F NON FOLLICULAR = 0.10 - 0.60' 'LUTEAL = 3.00 - 17.5' 'MIDLUTEAL = 3.30 - 18.6' 'POST-MENOPAUSE = 0.10 - 0.40' '-FIRST TRIMESTER = 8.30 - 66.5' 'SECOND TRIMESTER = 18.9 - 66.1' 'THIRD TRIMESTER = 35.8 - 312.4' 'MALES = 0.14 - 2.06' Result Verified by DilutionProgesteroneon 04-59-1068Bvmmxbeegfqz Lvl58.23 ng/mL Invalid Interpretation CodeMercy Health St. Rita'S Medical CenterComment on above:Result Comment: 'F NON FOLLICULAR = 0.10 - 0.60' 'LUTEAL = 3.00 - 17.5' 'MIDLUTEAL = 3.30 - 18.6' 'POST-MENOPAUSE = 0.10 - 0.40' '-FIRST TRIMESTER = 8.30 - 66.5' 'SECOND TRIMESTER = 18.9 - 66.1' 'THIRD TRIMESTER = 35.8 - 312.4' 'MALES = 0.14 - 2.06' Result Verified by DilutionPerformed By: #### [id number] #### [facility] [address], [place] [address]Cpvojfrrlfa 29-62-5949N7 [Mass/Vol]282.0 pg/mLInvalid Interpretation [facility] CenterComment on above:Result Comment: Adult Female Range Follicular phase 12.5 - 166.0 Ovulation phase 85.8 - 498.0 Luteal phase 43.8 - 211.0 Postmenopausal <6.0 - 54.7 1st trimester 215.0 - >4300.0 Carolin ECLIA methodology Performed at: [facility] [id number] PhD Randa OchoaPerformed By: #### [id number] #### [facility] [address], [place] [address]MNZNEEXWHSujtlbg By: SYSTEM SYSTEM on 76-73-2430Chaxzrhzfpfm Lvl44.85 ng/mLInvalid Interpretation CodeRemisol ChemComment on above:Result Comment: 'F NON FOLLICULAR = 0.10 - 0.60' 'LUTEAL = 3.00 - 17.5' 'MIDLUTEAL = 3.30 - 18.6' 'POST-MENOPAUSE = 0.10 - 0.40' '-FIRST TRIMESTER = 8.30 - 66.5' 'SECOND TRIMESTER = 18.9 - 66.1' 'THIRD TRIMESTER = 35.8 - 312.4' 'MALES = 0.14 - 2.06' Result Verified by Repeat Analysis Result Verified by DilutionProgesteroneon 44-16-4284Fejvxkhiolqd Lvl44.85 ng/mL Invalid Interpretation [facility] CenterComment on above:Result Comment: 'F NON FOLLICULAR = 0.10 - 0.60' 'LUTEAL = 3.00 - 17.5' 'MIDLUTEAL = 3.30 - 18.6' 'POST-MENOPAUSE = 0.10 - 0.40' '-FIRST TRIMESTER = 8.30 - 66.5' 'SECOND TRIMESTER = 18.9 - 66.1' 'THIRD TRIMESTER = 35.8 - 312.4' 'MALES = 0.14 - 2.06' Result Verified by Repeat Analysis Result Verified by DilutionPerformed By: #### [id number] #### [facility] [address], [place] [address]Tphmmnpsa Laboratory TestingOrdered By: Generated DomainUser on 04-60-6023U2 [Mass/Vol]282.0 pg/mLInvalid Interpretation [facility] SendOutsSS Comment on above:Result Comment: Adult Female Range Follicular phase 12.5 - 166.0 Ovulation phase 85.8 - 498.0 Luteal phase 43.8 - 211.0 Postmenopausal <6.0 - 54.7 1st trimester 215.0 - >4300.0 Carolin ECLIA methodology Performed at: [address] [id number] PhD Randa Mccain [id number] [Mass/Vol]143.0 pg/mL Invalid Interpretation [facility] CenterComment on above:Result Comment: Adult Female Range Follicular phase 12.5 - 166.0 Ovulation phase 85.8 - 498.0 Luteal phase 43.8 - 211.0 Postmenopausal <6.0 - 54.7 1st trimester 215.0 - >4300.0 Carolin ECLIA methodology Performed at: [employer] [id number] [phone] PhD Randa OchoaPerformed By: #### [id number] #### [facility] [address], [place] [address]RBxs 03-78-8836Killynfu Qn9.6 m[IU]/mLInvalid Interpretation [facility] CenterComment on above:Result Comment: Adult Female Range Follicular phase 2.4 - 12.6 Ovulation phase 14.0 - 95.6 Luteal phase 1.0 - 11.4 Postmenopausal 7.7 - 58.5 Performed at: [address] [id number] PhD Randa OchoaPerformed By: #### [id number] #### [facility] [address], [place] [address]NNLJNMEFCWlhuxtj By: SYSTEM SYSTEM on 90-43-4886Qfonbzhdetom Lvl0.42 ng/mLInvalid Interpretation CodeRemisol ChemComment on above:Result Comment: 'F NON FOLLICULAR = 0.10 - 0.60' 'LUTEAL = 3.00 - 17.5' 'MIDLUTEAL = 3.30 - 18.6' 'POST-MENOPAUSE = 0.10 - 0.40' '-FIRST TRIMESTER = 8.30 - 66.5' 'SECOND TRIMESTER = 18.9 - 66.1' 'THIRD TRIMESTER = 35.8 - 312.4' 'MALES = 0.14 - 2.06'Progesteroneon 47-26-3523Xmagjvcxdopr Lvl0.42 ng/mLInvalid Interpretation [facility] CenterComment on above:Result Comment: 'F NON FOLLICULAR = 0.10 - 0.60' 'LUTEAL = 3.00 - 17.5' 'MIDLUTEAL = 3.30 - 18.6' 'POST-MENOPAUSE = 0.10 - 0.40' '-FIRST TRIMESTER = 8.30 - 66.5' 'SECOND TRIMESTER = 18.9 - 66.1' 'THIRD TRIMESTER = 35.8 - 312.4' 'MALES = 0.14 - 2.06'Performed By: #### [id number] #### [facility] [address], [place] [address]Wgjfasvni Laboratory TestingOrdered By: Generated DomainUser on 10-75-9183F8 [Mass/Vol]143.0 pg/mLInvalid Interpretation [facility] SendOutsSS Comment on above:Result Comment: Adult Female Range Follicular phase 12.5 - 166.0 Ovulation phase 85.8 - 498.0 Luteal phase 43.8 - 211.0 Postmenopausal <6.0 - 54.7 1st trimester 215.0 - >4300.0 Carolin ECLIA methodology Performed at: [address] [id number] [id number] PhD Randa VincentLutropin Qn9.6 m[IU]/mLInvalid Interpretation [facility] SendOutsSSComment on above:Result Comment: Adult Female Range Follicular phase 2.4 - 12.6 Ovulation phase 14.0 - 95.6 Luteal phase 1.0 - 11.4 Postmenopausal 7.7 - 58.5 Performed at: [address] [id number] [id number] PhD Randa Trivedi Transvaginal Non-OBon 59-00-9714NW Transvaginal Non-OBExam Date/Time: 05/20/2024 07:58 EDT Reason for Exam: Z31.83 Report IMPRESSION: NEGATIVE ULTRASOUND OF THE PELVIS. EXAM: US Transvaginal Non-OB DATE: 05/20/2024 7:21 AM CLINICAL HISTORY: Z31.83. COMPARISON: 05/13/2024. TECHNIQUE: Transvaginal ultrasound of the pelvis was performed. FINDINGS: The central endometrial complex is trilaminar in appearance, measuring approximately 0.8 cm in combined thickness. The uterus is anteverted and mildly anteflexed in position, and otherwise unremarkable in appearance. Both ovaries appear similar to 05/13/2024, with several mildly complicated follicles measured in the exam technical data. There is no significant free fluid, abnormal adnexal masses, or other findings of concern identified. The uterine measurements and estimated volume: 8.8 cm x 5.5 cm x 3.8 cm, 95.2 mL The right ovary measurements and estimated volume: 4.2 cm x 4.4 cm x 3.3 cm, 31.4 mL The left ovary measurements and an estimated volume are: 3.1 cm x 3.4 cm 3.4 cm, 18.5 mL Technical Comments: Measurements (in mm) 14 follicles 15.1, 14.9, 8.2, 15.1, 24.7, 5.9, 11.5, 4.9, 6.9, 4.9, 6.8, 4.8, 3.5, 5.1, 15.2, 14.1 Measurements (in mm) 10 follicles 9.8, 7.2, 9.2, 4.8, 5.4, 15.5, 16.0, 5.5, 5.6, 4.7 Report Ordering Provider: , FINAL REPORT Dictated: 05/20/2024 8:38 am Arun Bhatia MD Signed (Electronic Signature): 05/20/2024 8:38 am Signed by: Arun Bhatia MD Transcribed by: JURGEN Technologist: RamónMercy Health St. Rita'S Medical CenterEstradiolon 47-62-4524S9 [Mass/Vol]84.1 pg/mLInvalid Interpretation [facility] CenterComment on above:Result Comment: Adult Female Range Follicular phase 12.5 - 166.0 Ovulation phase 85.8 - 498.0 Luteal phase 43.8 - 211.0 Postmenopausal <6.0 - 54.7 1st trimester 215.0 - >4300.0 Carolin ECLIA methodology Performed at: [address] [id number] [phone] PhD Randa Ramírezformed By: #### [id number] #### [facility] [address] [place] [address]OUU and LHon 26-11-5326Sguoowbodrv Qn11.2 m[IU]/mLInvalid Interpretation [facility] CenterComment on above:Result Comment: Adult Female Range Follicular phase 3.5 - 12.5 Ovulation phase 4.7 - 21.5 Luteal phase 1.7 - 7.7 Postmenopausal 25.8 - 134.8 Performed at: [address] [id number] PhD Randa Ramírezformed By: #### [id number] #### [facility] [address], [place] [address]Ucsnolmh Qn9.2 m[IU]/mLInvalid Interpretation [facility] CenterComment on above:Result Comment: Adult Female Range Follicular phase 2.4 - 12.6 Ovulation phase 14.0 - 95.6 Luteal phase 1.0 - 11.4 Postmenopausal 7.7 - 58.5Performed By: #### [id number] #### [facility] [address], [place] [address]FzHF Quanton 72-44-2068DVC.beta subunit Qn1 m[IU]/mLNormal1-[address] [facility]S Medical CenterComment on above:Result Comment: 'F NON < 1 - 3' ' 0.2 - 1 WEEK = 5 TO 50' ' 1 - 2 WEEKS = 50 - 500' ' 2 - 3 WEEKS = 100 - 5000' ' 3 - 4 WEEKS = 500 - 25643' ' 4 - 5 WEEKS = 1000 - 65289' ' 5 - 6 WEEKS = 43835 - 787333' ' 6 - 8 WEEKS = 60880 - 483633' ' 8 - 12 WEEKS = 92010 - 383955'Performed By: #### [id number] #### [facility] [address] [place] [address]EZPGAAJOMZhmiccl By: SYSTEM SYSTEM on 79-72-1753CYX.beta subunit Qn1 m[IU]/mLNormal1 - 3 mIU/mLRemisol ChemComment on above:Result Comment: 'F NON < 1 - 3' ' 0.2 - 1 WEEK = 5 TO 50' ' 1 - 2 WEEKS = 50 - 500' ' 2 - 3 WEEKS = 100 - 5000' ' 3 - 4 WEEKS = 500 - 65826' ' 4 - 5 WEEKS = 1000 - 22725' ' 5 - 6 WEEKS = 99543 - 203478' ' 6 - 8 WEEKS = 12750 - 423530' ' 8 - 12 WEEKS = 60257 - 911482'Progesterone Lvl0.85 ng/mLInvalid Interpretation CodeRemisol ChemComment on above:Result Comment: 'F NON FOLLICULAR = 0.10 - 0.60' 'LUTEAL = 3.00 - 17.5' 'MIDLUTEAL = 3.30 - 18.6' 'POST-MENOPAUSE = 0.10 - 0.40' '-FIRST TRIMESTER = 8.30 - 66.5' 'SECOND TRIMESTER = 18.9 - 66.1' 'THIRD TRIMESTER = 35.8 - 312.4' 'MALES = 0.14 - 2.06'TSH Qn1.77 m[IU]/LNormal0.34 - 5.60 mcIU/mLRemisol Chem Progesteroneon 06-95-3778Pwdzsmbpmgqo Lvl0.85 ng/mLInvalid Interpretation Code [facility] CenterComment on above:Result Comment: 'F NON FOLLICULAR = 0.10 - 0.60' 'LUTEAL = 3.00 - 17.5' 'MIDLUTEAL = 3.30 - 18.6' 'POST-MENOPAUSE = 0.10 - 0.40' '-FIRST TRIMESTER = 8.30 - 66.5' 'SECOND TRIMESTER = 18.9 - 66.1' 'THIRD TRIMESTER = 35.8 - 312.4' 'MALES = 0.14 - 2.06'Performed By: #### [id number] #### [facility] [address], [place] [address]SOUjt 96-32-7592NPP Qn1.77 m[IU]/LNormal0.34-5.60[facility] InstituteComment on above:Performed By: #### [id number] #### [facility] [address], [place] [address]IM Transvaginal Non-OBon 21-02-1580TW Transvaginal Non-OBExam Date/Time: 05/13/2024 09:09 EDT Reason for Exam: Z31.83 Report IMPRESSION: NEGATIVE ULTRASOUND OF THE PELVIS. EXAM: US Transvaginal Non-OB DATE: 05/13/2024 8:13 AM CLINICAL HISTORY: Z31.83. COMPARISON: 03/10/2016 TECHNIQUE: Transvaginal ultrasound of the pelvis was performed. FINDINGS: The central endometrial complex is nearly homogeneous in appearance, measuring approximately 0.5 cm in combined thickness. The uterus is anteverted and mildly anteflexed in position, and otherwise unremarkable in appearance. Both ovaries appear within normal limits for the patient's age group, with cysts/follicles measured in the exam technical data. There is no significant free fluid, abnormal adnexal masses, or other findings of concern identified. The uterine measurements and estimated volume: 8.6 cm x 6.4 cm x 4.0 cm, 113.4 mL The right ovary measurements and estimated volume: 4.5 cm x 3.8 cm x 3.7 cm, 32.9 mL The left ovary measurements and an estimated volume are: 3.6 cm x 3.8 cm 4.4 cm, 31.6 mL Technical Comments: Endometrium. 0.45cm Right Ovary 12 follicles 1.0, 0.8, 0.9, 0.4, 1.0, 1.0, 0.7, 0.7, 0.8, 0.8, 1.7, 1.7cm Report Left Ovary 12 follicles 1.2, 1.1, 1.2, 0.5, 0.5, 1.1, 0.9, 2.6, 0.7, 0.6, 1.8, 2.0cm Ordering Provider: , FINAL REPORT Dictated: 05/13/2024 10:07 am Arun Bhatia MD Signed (Electronic Signature): 05/13/2024 10:07 am Signed by: Arun Bhatia MD Transcribed by: JURGEN Technologist: [place] [facility] Quanton 82-31-1016JTC.beta subunit Qn1 m[IU]/mLNormal1-3[facility] Comment on above:Result Comment: 'F NON < 1 - 3' ' 0.2 - 1 WEEK = 5 TO 50' ' 1 - 2 WEEKS = 50 - 500' ' 2 - 3 WEEKS = 100 - 5000' ' 3 - 4 WEEKS = 500 - 45370' ' 4 - 5 WEEKS = 1000 - 59894' ' 5 - 6 WEEKS = 06035 - 939360' ' 6 - 8 WEEKS = 10821 - 417684' ' 8 - 12 WEEKS = 40671 - 563658'Performed By: #### [id number] #### [facility] [address] [place] [address] 24[address]HWLNUVHICGjvbsvq By: SYSTEM SYSTEM on 39-01-4508HKM.beta subunit Qn1 m[IU]/mLNormal1 - 3 mIU/mLRemisol ChemComment on above:Result Comment: 'F NON < 1 - 3' ' 0.2 - 1 WEEK = 5 TO 50' ' 1 - 2 WEEKS = 50 - 500' ' 2 - 3 WEEKS = 100 - 5000' ' 3 - 4 WEEKS = 500 - 79234' ' 4 - 5 WEEKS = 1000 - 43229' ' 5 - 6 WEEKS = 10213 - 879449' ' 6 - 8 WEEKS = 63318 - 195818' ' 8 - 12 WEEKS = 34142 - 350966'Progesterone Lvl65.01 ng/mLInvalid Interpretation CodeRemisol ChemComment on above:Result Comment: 'F NON FOLLICULAR = 0.10 - 0.60' 'LUTEAL = 3.00 - 17.5' 'MIDLUTEAL = 3.30 - 18.6' 'POST-MENOPAUSE = 0.10 - 0.40' '-FIRST TRIMESTER = 8.30 - 66.5' 'SECOND TRIMESTER = 18.9 - 66.1' 'THIRD TRIMESTER = 35.8 - 312.4' 'MALES = 0.14 - 2.06' Result Verified by DilutionProgesteroneon 82-12-2647Xlizmxbnilip Lvl65.01 ng/mL Invalid Interpretation [facility] CenterComment on above:Result Comment: 'F NON FOLLICULAR = 0.10 - 0.60' 'LUTEAL = 3.00 - 17.5' 'MIDLUTEAL = 3.30 - 18.6' 'POST-MENOPAUSE = 0.10 - 0.40' '-FIRST TRIMESTER = 8.30 - 66.5' 'SECOND TRIMESTER = 18.9 - 66.1' 'THIRD TRIMESTER = 35.8 - 312.4' 'MALES = 0.14 - 2.06' Result Verified by DilutionPerformed By: #### [id number] #### [facility] [address], [place] [address]Fnygwycyspt 93-01-4251J3 [Mass/Vol]84.6 pg/mLInvalid Interpretation [facility] CenterComment on above:Result Comment: Adult Female Range Follicular phase 12.5 - 166.0 Ovulation phase 85.8 - 498.0 Luteal phase 43.8 - 211.0 Postmenopausal <6.0 - 54.7 1st trimester 215.0 - >4300.0 Carolin ECLIA methodology Performed at: [facility] [id number] [phone] PhD Randa OchoaPerformed By: #### [id number] #### [facility] [address], [place] [address]BGLZFNBWNEqcnadf By: SYSTEM SYSTEM on 15-87-6526Absczqkjsyll Lvl62.71 ng/mLInvalid Interpretation CodeRemisol ChemComment on above:Result Comment: 'F NON FOLLICULAR = 0.10 - 0.60' 'LUTEAL = 3.00 - 17.5' 'MIDLUTEAL = 3.30 - 18.6' 'POST-MENOPAUSE = 0.10 - 0.40' '-FIRST TRIMESTER = 8.30 - 66.5' 'SECOND TRIMESTER = 18.9 - 66.1' 'THIRD TRIMESTER = 35.8 - 312.4' 'MALES = 0.14 - 2.06' Result Verified by DilutionProgesteroneon 18-49-6810Qtrxwjfacavn Lvl62.71 ng/mL Invalid Interpretation CodeFisher [facility] InstituteComment on above:Result Comment: 'F NON FOLLICULAR = 0.10 - 0.60' 'LUTEAL = 3.00 - 17.5' 'MIDLUTEAL = 3.30 - 18.6' 'POST-MENOPAUSE = 0.10 - 0.40' '-FIRST TRIMESTER = 8.30 - 66.5' 'SECOND TRIMESTER = 18.9 - 66.1' 'THIRD TRIMESTER = 35.8 - 312.4' 'MALES = 0.14 - 2.06' Result Verified by DilutionPerformed By: #### [id number] #### [facility] [address], [place] [address]LJ PELVIS TRANSVAGINALon 18-64-0303[address] [address] Ultrasound Report Signed Patient: INDU ST MR#: [id number] : 1995 Acct:[id number] Age/Sex: 28 / F ADM Date: 04/18/24 Loc: US Attending Dr: Jade Ledbetter M.D. Ordering Physician: Jade Ledbetter M.D. Date of Service: 04/18/24 Procedure(s): US pelvis transvaginal Accession Number(s): [id number] cc: CAROLYNE COLLAZO Robert J M.D. [address] [address] Patient Name: INDU ST MRN: [id number] date: 1995 Sex: F Assigned Patient Location: US Current Patient Location: US Accession/Order Number: [id number] Exam Date: 04/18/2024 07:00 Report Date: 04/18/2024 07:38 At the request of: JADE LEDBETTER Procedure: US pelvis transvaginal EXAMINATION: US pelvis transvaginal HISTORY: Encounter For ART Procedure Z31.83 COMPARISON: Ultrasound pelvis transvaginal 04/17/2024 TECHNIQUE: Transabdominal and/or transvaginal sonographic examination was performed as indicated by examination type. FINDINGS: UTERUS: Normal size and appearance. Uterus size: 9.0 x 5.7 x 4.4 cm ENDOMETRIUM: Normal homogeneous appearance. Endometrial thickness: 7 mm RIGHT OVARY: Contains 14 follicles measured in millimeters: 23, 13, 12, 12, 8, 7, 9, 4, 16, 24, 13, 16, 11, 9 mm Duplex Doppler demonstrates normal waveform and flow; resistive index 0.5. Ovary size: 6.6 x 3.3 x 3.3 cm LEFT OVARY: Contains 8 follicles measure 10 mm: 20, 11, 10, 5, 13, 17, 12, 12 mm Duplex Doppler demonstrates normal waveform and flow; resistive index 0.5. Ovary size: 5.8 x 3.3 x 3.2 cm CUL-DE-SAC: Unremarkable. No significant free fluid. BLADDER: Unremarkable. OTHER: None. US/US pelvis transvaginal IMPRESSION: 1. Multiple ovarian follicles bilaterally as detailed above. Electronically authenticated by: BRIAN NAYAK Date: 04/18/2024 07:38 Dictated By: Brian Nayak M.D. Signed By: 04/18/24 0741 DD/ 0738 TD/TT: [employer] Operator:TBHRadiology, Radiologist, - 04/18/2024 [place] [address] Ultrasound Report Signed Patient: INDU ST MR#: [id number] : 1995 Acct:[id number] Age/Sex: 28 / F ADM Date: 04/18/24 Loc: US Attending Dr: Jade Ledbetter M.D. Ordering Physician: Jade Ledbetter M.D. Date of Service: 04/18/24 Procedure(s): US pelvis transvaginal Accession Number(s): [id number] cc: CAROLYNE COLLAZO ; Jade Ledbetter M.D. [facility] [place] [id number] Patient Name: INDU TS MRN: [id number] date: 1995 Sex: F Assigned Patient Location: US Current Patient Location: US Accession/Order Number: [id number] Exam Date: 04/18/2024 07:00 Report Date: 04/18/2024 07:38 At the request of: JADE LEDBETTER Procedure: US pelvis transvaginal EXAMINATION: US pelvis transvaginal HISTORY: Encounter For ART Procedure Z31.83 COMPARISON: Ultrasound pelvis transvaginal 04/17/2024 TECHNIQUE: Transabdominal and/or transvaginal sonographic examination was performed as indicated by examination type. FINDINGS: UTERUS: Normal size and appearance. Uterus size: 9.0 x 5.7 x 4.4 cm ENDOMETRIUM: Normal homogeneous appearance. Endometrial thickness: 7 mm RIGHT OVARY: Contains 14 follicles measured in millimeters: 23, 13, 12, 12, 8, 7, 9, 4, 16, 24, 13, 16, 11, 9 mm Duplex Doppler demonstrates normal waveform and flow; resistive index 0.5. Ovary size: 6.6 x 3.3 x 3.3 cm LEFT OVARY: Contains 8 follicles measure 10 mm: 20, 11, 10, 5, 13, 17, 12, 12 mm Duplex Doppler demonstrates normal waveform and flow; resistive index 0.5. Ovary size: 5.8 x 3.3 x 3.2 cm CUL-DE-SAC: Unremarkable. No significant free fluid. BLADDER: Unremarkable. OTHER: None. US/US pelvis transvaginal IMPRESSION: 1. Multiple ovarian follicles bilaterally as detailed above. Electronically authenticated by: BRIAN NAYAK Date: 04/18/2024 07:38 Dictated By: Brian Nayak M.D. Signed By: 04/18/24 0741 DD/ TD/TT: Carton Making Machine Operator: DEION HealthcareRadiology Study observation (narrative)NOM HealthcareUS PELVIS TRANSVAGINALOrdered By: Radiologist Radiology on 29-04-3249[employer] [employer] Work Phone: US PELVIS TRANSVAGINALon [phone] [place] [phone] Ultrasound Report Signed Patient: INDU ST MR#: [id number] : 1995 Acct:[id number] Age/Sex: 28 / F ADM Date: 04/16/24 Loc: US Attending Dr: Jdae Ledbetter M.D. Ordering Physician: Jade Ledbetter M.D. Date of Service: 04/16/24 Procedure(s): US pelvis transvaginal Accession Number(s): [id number] cc: CAROLYNE COLLAZO ; Jade Ledbetter M.D. [address] [id number] Patient Name: INDU ST MRN: [id number] date: 1995 Sex: F Assigned Patient Location: US Current Patient Location: US Accession/Order Number: [id number] Exam Date: 04/16/2024 07:03 Report Date: 04/16/2024 [...] Signed By: 04/16/24 1133 DD/ 1131 TD/TT: Carton Making Machine Operator:TBHRadiology, Radiologist, MD - 04/16/2024 [place] [address] Ultrasound Report Signed Patient: INDU ST MR#: [id number] : 1995 Acct:[id number] Age/Sex: 28 / F ADM Date: 04/16/24 Loc: US Attending Dr: Jade Ledbetter M.D. Ordering Physician: Jade Ledbetter M.D. Date of Service: 04/16/24 Procedure(s): US pelvis transvaginal Accession Number(s): [id number] cc: CAROLYNE COLLAZO ; Jade Ledbetter M.D. [place] [id number] Patient Name: INDU ST MRN: [id number] date: 1995 Sex: F Assigned Patient Location: US Current Patient Location: US Accession/Order Number: [id number] Exam Date: 04/16/2024 07:03 Report Date: 04/16/2024 [...] Signed By: 04/16/24 1133 DD/ 1131 TD/TT: Carton Making Machine Operator: DEION HealthcareRadiology Study observation (narrative)NOM HealthcareUS PELVIS TRANSVAGINALOrdered By: Radiologist Radiology on 23-87-0619[facility] [employer] Work Phone: US PELVIS TRANSVAGINALon [phone] [address] Ultrasound Report Signed Patient: INDU ST MR#: [id number] : 1995 Acct:[id number] Age/Sex: 28 / F ADM Date: 04/14/24 Loc: US Attending Dr: Jade Ledbetter M.D. Ordering Physician: Jade Ledbetter M.D. Date of Service: 04/14/24 Procedure(s): US pelvis transvaginal Accession Number(s): [id number] cc: CAROLYNE COLLAZO ; Jade Ledbetter M.D. [place] [id number] Patient Name: INDU ST MRN: [id number]:[id number] date: 1995 Sex: F Assigned Patient Location: US Current Patient Location: US Accession/Order Number: [id number] Exam Date: 04/14/2024 07:00 Report Date: 04/14/2024 [...] Mckeon M.D. Signed By: 04/14/24 0745 DD/ TD/TT: Carton Making Machine Operator:TBHRadiology, Radiologist, - 04/14/2024 [place] [address] Ultrasound Report Signed Patient: INDU ST MR#: [id number] : 1995 Acct:[id number] Age/Sex: 28 / F ADM Date: 04/14/24 Loc: US Attending Dr: Jade Ledbetter M.D. Ordering Physician: Jade Ledbetter M.D. Date of Service: 04/14/24 Procedure(s): US pelvis transvaginal Accession Number(s): [id number] cc: CAROLYNE COLLAZO ; Jade Ledbetter M.D. [place] [id number] Patient Name: INDU ST MRN: [id number] date: 1995 Sex: F Assigned Patient Location: US Current Patient Location: US Accession/Order Number: [id number] Exam Date: 04/14/2024 07:00 Report Date: 04/14/2024 [...] Mckeon M.D. Signed By: 04/14/24 0745 DD/ TD/TT: Carton Making Machine Operator: NOMS HealthcareRadiology Study observation (narrative)NOMS HealthcareUS PELVIS TRANSVAGINALOrdered By: Radiologist Radiology on 49-21-7326H[employer] Work Phone: US PELVIS TRANSVAGINALon [phone] [address] Ultrasound Report Signed Patient: INDU ST MR#: [id number] : 1995 Acct:[id number] Age/Sex: 28 / F ADM Date: 04/08/24 Loc: US Attending Dr: Jade Ledbetter M.D. Ordering Physician: Jade Ledbetter M.D. Date of Service: 04/08/24 Procedure(s): US pelvis transvaginal Accession Number(s): [id number] cc: CAROLYNE COLLAZO ; Jade Ledbetter M.D. [address] [address] Patient Name: INDU ST MRN: [id number]:[id number] date: 1995 Sex: F Assigned Patient Location: US Current Patient Location: US Accession/Order Number: [id number] Exam Date: 04/08/2024 13:45 Report Date: 04/08/2024 [...] Signed By: 04/08/24 1442 DD/ 1439 TD/TT: Carton Making Machine Operator:TBHRadiology, Radiologist, - 04/08/2024 [place] [address] Ultrasound Report Signed Patient: INDU ST MR#: [id number] : 1995 Acct:[id number] Age/Sex: 28 / F ADM Date: 04/08/24 Loc: US Attending Dr: Jade Ledbetter M.D. Ordering Physician: Jade Ledbetter M.D. Date of Service: 04/08/24 Procedure(s): US pelvis transvaginal Accession Number(s): [id number] cc: CAROLYNE COLLAZO ; Jade Ledbetter M.D. [place] [id number] Patient Name: INDU ST MRN: [id number] date: 1995 Sex: F Assigned Patient Location: Current Patient Location: US Accession/Order Number: [id number] Exam Date: 04/08/2024 13:45 Report Date: 04/08/2024 [...] Signed By: 04/08/24 1442 DD/ 1439 TD/TT: Carton Making Machine Operator: DEION HealthcareRadiology Study observation (narrative)[facility] HealthcareUS PELVIS TRANSVAGINALOrdered By: Radiologist Radiology on 22-44-7276[facility] Healthcare Work Phone: basic Metabolic Panelon 75-46-2779Btksebcoxw [Mass/Vol]0.8 mg/dL0.5 - 1.1 mg/dLBrown Memorial Hospital SystemGlucose [Mass/Vol]87 mg/dLBrown Memorial Hospital SystemPotassium [Moles/Vol]4.1 mmol/L3.4 - 5.3 mmol/L [facility] SystemSodium [Moles/Vol]142 mmol/L137 - 147 mmol/LPrWyandot Memorial Hospital SystemUrea nitrogen [Mass/Vol]13 mg/dL4 - 21 mg/dLBrown Memorial Hospital System HBV surface Ag IA Qlon 26-02-2777Vczrxiiyb B Surface AntigenNegativeBrown Memorial Hospital SystemHIV 1+2 Ab+HIV1 p24 Ag IA Qlon 99-36-4647WME 1&2 AB/AGNon-Reactive [facility] HospitalLaboratory - Hematology and Cell countson 19-81-0165QlJ3w (Bld) [Mass fraction]5.3 %4.0 - 6.0 %[facility] HealthcareComment on above:ADA RECOMMENDED LIMIT 4.0 - 6.0 ADA THERAPEUTIC TARGET < 7.0 ACTION SUGGESTED > 7.0 Liver panelon 37-59-0845NWS [Catalytic activity/Vol]51 U/L25 - 125 U/LProMedica Health SystemALT No additional P-5'-P [Catalytic activity/Vol]47 U/LAbnormal7 - 35 U/LProMedica Health SystemAST [Catalytic activity/Vol]21 U/L13 - 35 U/L [facility] SystemInterpretation and review of laboratory resultsAbnormal [facility] SystemMLR HEMOGLOBIN A1Con 30-66-5087Iixurle [Mass/Vol]105 mg/dLNONH HealthcareCLINISYNCNo Panel Informationon 88-07-2102RTHM Healthcare Rubella immune IgG13.5PMorrow County Hospital SystemT. pallidum IgG+IgM IA Ql (S)on 03-14-2024T. pallidum IgG Ql (S)Non-ReactiveProMercy Health SystemType and screenon 15-24-5709Rtp/Rh(D)PositiveProMercy Health SystemANA Individual Abson 60-36-6265Ekkb-Centro B AbSee Refr ReportNONH HealthcareComment on above: Performed By: #### [id number] #### [facility] [address], [place] [address]ZZWE JESUS INDIVIDUAL ABSon 06-33-0591Omnblfhj Ordering Provider: MD Carolyne HutchisonAdena [facility] WRITTEN AUTHORIZATIONon 50-77-0670LEZD WRITTEN AUTHORIZATIONComMemorial Hospital Of Gardena HealthcareComment on above: Written Authorization Received. Authorization received from ORIGINAL ORDER 02-20-2024 Logged by Valentina Peters Performed at: [address] [id number] PhD Randa Ochoa Original Ordering Provider: MD Carolyne PonceUniversity HospitalWRITTEN AUTHORIZATIONon 84-46-9267Zkggkor AuthorizationCommentInvalid Interpretation [facility] Medical CenterComment on above:Result Comment: Written Authorization Received. Authorization received from ORIGINAL ORDER 02-20-2024 Logged by Valentina Peters Performed at: [address] [id number] PhD Randa OchoaPerformed By: #### [id number] #### [facility] [address], [place] [address]QLZQ RF QUANTon 15-26-3149YKTV RHEUMATOID FACTOR:ACNC:PT:SER/PLAS:QN:13.2NINFNOMS HealthcareComment on above:Performed at: [address] [id number] PhD Randa Ochoa Original Ordering Provider: MD Carolyne Barr [facility] System West CampusRF Quanton 41-92-5689Reutphpxvu factor Qn13.2 International_Unit/mLInvalid Interpretation Code<14.0[facility]. Rita'S Medical CenterComment on above:Result Comment: Performed at: [address] [id number] PhD Randa OchoaPerformed By: #### [id number] #### [facility] [address] [place] [address]UYE w/ Auto Diffon 67-99-7731Plrxaaikr/100 WBC (Bld)0.3 %Normal 0.0-2.0NOMS HealthcareComment on above:Performed By: #### [id number] #### [facility] [address], [place] [address]Iwhudwcsffw distribution width (RBC) [Ratio]14.3 %High10.9-14.2 NOMS HealthcareComment on above:Performed By: #### [id number] #### [facility] [address], [place] [address]Ajghptvlku (Bld) [Volume fraction]40.4 %Hdffez87.0-46.0NOMS HealthcareComment on above:Performed By: #### [id number] #### [facility] [address], [place] [address]Slcvjsbrjzr/100 WBC (Bld)16.1 %Nmqpij57.0-50.0NOMS Healthcare Comment on above:Performed By: #### [id number] #### [facility] [address], [place] [address]Echwcqsqoaf/100 WBC (Bld)75.3 %High36.0-75.0NOMS Healthcare Comment on above:Performed By: #### [id number] #### [facility] [address] [place] [address]Igdabphn mean volume (Bld) [Entitic vol]8.5 fLNormal6.4-10.8 [facility] HealthcareComment on above:Performed By: #### [id number] #### [facility] [address] [place] [address]Qbmkaygdf/Leukocytes Auto (Bld) [Pure # fraction]0.0 E9/LNormal 0.0-0.2FBethesda North HospitalComment on above:Performed By: #### [id number] #### [facility] [address] [place] [address]Mrnoljobcqg (Bld) [#/Vol]0.0 E9/LNormal0.0-0.5FBethesda North HospitalComment on above:Performed By: #### [id number] #### [facility] [address] [place] [address]Rdlwvuqddzc/100 WBC (Bld)0.4 %Normal0.0-8.0[facility] Rita'S Medical CenterComment on above:Performed By: #### [id number] #### [facility] [address] [place] [address]Orfxethxbj (Bld) [Mass/Vol]14.2 g/vBJnzfmv98.0-16.0[facility] Rita'S Medical CenterComment on above:Performed By: #### [id number] #### [facility] [address] [place] [address]Cskuqexqaml (Bld) [#/Vol]1.1 E9/LNormal1.0-4.0[facility] Rita'S Medical CenterComment on above:Performed By: #### [id number] #### [facility] [address] [place] [address]RYO (RBC) [Entitic mass]30.4 jnMypszu05.0-34.0[facility] Rita'S Medical CenterComment on above:Performed By: #### [id number] #### [facility] [address] [place] [address]FEJU (RBC) [Mass/Vol]35.1 g/dZIxvlcf00.4-36.0[facility] Rita'S Medical CenterComment on above:Performed By: #### [id number] #### [facility] [address] [place] [address]SBK (RBC) [Entitic vol]86.7 jXKyqvrz86.0-100.0[facility] Rita'S Medical CenterComment on above:Performed By: #### [id number] #### [facility] [address] [place] [address]Yjfscxndj (Bld) [#/Vol]0.5 E9/LNormal0.2-1.0[facility] Rita'S Medical CenterComment on above:Performed By: #### [id number] #### [facility] [address] [place] [address]Bdbgslrwoel (Bld) [#/Vol]5.1 E9/LNormal2.0-7.5FBethesda North HospitalComment on above:Performed By: #### [id number] #### [facility] [address] [place] [address]Mtkexfmx149.0 E9/IDcidvg724.0-500.0[facility] Comment on above:Performed By: #### [id number] #### [facility] [address] [place] [address]ZWW (Bld) [#/Vol]4.7 E12/LNormal4.3-5.9[facility] Rita'S Medical CenterComment on above:Performed By: #### [id number] #### [facility] [address] [place] [address]ZXG corrected for nucl RBC Auto (Bld) [#/Vol]6.8 E9/LNormal 4.0-11.0[facility] Rita'S Medical CenterComment on above:Performed By: #### [id number] #### [facility] [address] [place], [place] [address]JVGULXSDVKpozgnb By: SYSTEM SYSTEM on 94-97-6832Parrkvh [Mass/Vol]4.5 g/dLNormal3.3 - 5.0 gm/dLRemisol ChemAlbumin/Globulin [Mass ratio] 1.6 {ratio}Normal1.1 - 2.2Remisol ChemALP [Catalytic activity/Vol]55 [iU]/d Jhsuul73 - 98 Int._Unit/LRemisol ChemALT No additional P-5'-P [Catalytic activity/Vol]13 [iU]/dNormal6 - 46 Int._Unit/LRemisol ChemAnion gap [Moles/Vol] 14 mmol/LNormal6 - 16 mEq/LRemisol ChemAST [Catalytic activity/Vol]13 [iU]/d Normal5 - 43 Int._Unit/LRemisol ChemBilirubin [Mass/Vol]0.5 mg/dLNormal0.0 - 1.1 mg/dLRemisol ChemCalcium [Mass/Vol]9.3 mg/dLNormal8.9 - 11.1 mg/dLRemisol Chem Chloride [Moles/Vol]103 mmol/GRohwqu092 - 111 mmol/LRemisol ChemCO2 [Moles/Vol] 26 mmol/ZKgfnux31 - 31 mmol/LRemisol ChemCreatinine [Mass/Vol]0.7 mg/dLNormal0.5 - 1.3 mg/dLRemisol WpaxlQET093 mL/min/1.73 p8Wteypg>=59mL/min/1.73 x3Evmmllq ChemGlobulin (S) [Mass/Vol]2.9 g/dLNormal1.4 - 4.0 gm/dLRemisol ChemGlucose [Mass/Vol]86 mg/eWBemiek30 - 199 mg/dLRemisol ChemPotassium [Moles/Vol]4.0 mmol/LNormal3.5 - 5.3 mmol/LRemisol ChemProtein [Mass/Vol]7.4 g/dLNormal6.0 - 7.8 gm/dLRemisol ChemSodium [Moles/Vol]139 mmol/SFwduxv995 - 145 mmol/LRemisol ChemUrea nitrogen [Mass/Vol]13 mg/dLNormal5 - 21 mg/dLRemisol ChemUrea nitrogen/Creatinine [Mass ratio]19 mg/ghRhxrcz91 - 20Remisol ChemCMPon 88-55-8318Etsezsa [Mass/Vol]4.5 g/dLNormal3.3-5.0[facility] Comment on above:Performed By: #### [id number] #### [facility] [address], [place] [address]Ehauoyf/Globulin (S) [Mass conc ratio]1.5Pespxj5.1-2.2FBethesda North HospitalComment on above:Performed By: #### [id number] #### [facility] [address], [place] [address]SQZ [Catalytic activity/Vol]55 Int._Unit/EGbsnue55-00MmlsiwMercy Health St. Rita'S Medical CenterComment on above:Performed By: #### [id number] #### [facility] [address], [place] [address]UFC No additional P-5'-P [Catalytic activity/Vol]13 Int._Unit/L Normal6-46[facility] Rita'S Medical CenterComment on above:Performed By: #### [id number] #### [facility] [address], [place] [address]Cwijy gap [Moles/Vol]14 mmol/LNormal6-16[facility] Rita'S Medical CenterComment on above:Performed By: #### [id number] #### [facility] [address], [place] [address]FSU [Catalytic activity/Vol]13 Int._Unit/LNormal5-43[facility] Rita'S Medical CenterComment on above:Performed By: #### [id number] #### [facility] [address], [place] [address]Fqwjybtoy [Mass/Vol]0.5 mg/dLNormal0.0-1.1FBethesda North HospitalComment on above:Performed By: #### [id number] #### [facility] [address], [place] [address]Hwdhkav [Mass/Vol]9.3 mg/dLNormal8.9-11.1FBethesda North HospitalComment on above:Performed By: #### [id number] #### [facility] [address], [place] [address]Lxvbwefz [Moles/Vol]103 mmol/QUyflkc259-953NlnemsMercy Health St. Rita'S Medical CenterComment on above:Performed By: #### [id number] #### [facility] [address], [place] [address]SN6 [Moles/Vol]26 mmol/GZjpsxf92-71SsmwnwMercy Health St. Rita'S Medical Center Comment on above:Performed By: #### [id number] #### [facility] [address], [place] [address]Cvhijukapl [Mass/Vol]0.7 mg/dLNormal0.5-1.3FBethesda North HospitalComment on above:Performed By: #### [id number] #### [facility] [address], [place] [address]Lluajcwk (S) [Mass/Vol]2.9 g/dLNormal1.4-4.0[facility] Rita'S Medical CenterComment on above:Performed By: #### [id number] #### [facility] [address], [place] [address]Bxlgaue [Mass/Vol]86 mg/cPCpcwfp42-120BakpnnMercy Health St. Rita'S Medical CenterComment on above:Performed By: #### [id number] #### [facility] [address], [place] [address]Pfxrsmcwf [Moles/Vol]4.0 mmol/LNormal3.5-5.3FBethesda North HospitalComment on above:Performed By: #### [id number] #### [facility] [address], [place] [address]Tduwetm [Mass/Vol]7.4 g/dLNormal6.0-7.8[facility] Rita'S Medical CenterComment on above:Performed By: #### [id number] #### [facility] [address], [place] [address]Uqsshs [Moles/Vol]139 mmol/RAqoclr551-327CsvoyaMercy Health St. Rita'S Medical CenterComment on above:Performed By: #### [id number] #### [facility] [address], [place] [address]Crtv nitrogen [Mass/Vol]13 mg/dLNormal5-21Mer[facility] St. Rita'S Medical CenterComment on above:Performed By: #### [id number] #### [facility] [address], [place] [address]Qmls nitrogen/Creatinine [Mass ratio]19 No PcqrnRzthaw36-[address] Rita'S Medical CenterComment on above:Performed By: #### [id number] #### [facility] [address], [place] [address]ECCM CBC W/ AUTO DIFFon 87-40-2180NRCGCXOCOGY/100 LEUKOCYTES:NFR:PT:BLD:QN:AUTOMATED COUNT0.4 %0.0 - 8.0 %[facility] EOSINOPHILS:NCNC:PT:BLD:QN:0[facility] BASOPHILS/LEUKOCYTES:NFR.DF:PT:BLD:QN:AUTOMATED YGJLB3ZKQLAudrain Medical Center ERYTHROCYTE MEAN CORPUSCULAR HEMOGLOBIN CONCENTRATION:MCNC:PT:RBC:QN35.1NOMS [facility] ERYTHROCYTE MEAN CORPUSCULAR HEMOGLOBIN:ENTMASS:PT:RBC:QN30.4 pg 27.0 - 34.0 pgAudrain Medical Center ERYTHROCYTE MEAN CORPUSCULAR VOLUME:ENTVOL:PT:RBC:QN:AUTOMATED COUNT86.7 fL80.0 - 100.0 fLAudrain Medical Center ERYTHROCYTES:NCNC:PT:BLD:QN:AUTOMATED COUNT4.7[facility] HEMOGLOBIN:MCNC:PT:BLD:QN:14.2NOMS [facility] LEUKOCYTES6.8[facility] MONOCYTES:NCNC:PT:BLD:QN:AUTOMATED COUNT0.5[facility] NEUTROPHILS:NCNC:PT:BLD:QN:AUTOMATED COUNT5.1NOMS HealthcareInterpretation and review of laboratory resultsAbnormalNOMS HealthcareLYMPHOCYTES:NCNC:PT:BLD:QN: 1.1NOMS HealthcarePlatelets (Bld) [#/Vol]235 10*3/[facility] HealthcareOriginal Ordering Provider: MD Carolyne HutchisonWEST ROXBUR[facility] HealthcareHEMATOLOGYOrdered By: SYSTEM SYSTEM on 56-37-0160Cllzzvqjc/100 WBC (Bld)0.3 %Normal0.0 - 2.0 % Remisol HemeBasophils/Leukocytes Auto (Bld) [Pure # fraction]0.0 E9/LNormal0.0 - 0.2 E9/LRemisol HemeEosinophils (Bld) [#/Vol]0.0 E9/LNormal0.0 - 0.5 E9/LRemisol HemeEosinophils/100 WBC (Bld)0.4 %Normal0.0 - 8.0 %Remisol HemeErythrocyte distribution width (RBC) [Ratio]14.3 %High10.9 - 14.2 %Remisol HemeHematocrit (Bld) [Volume fraction]40.4 %Tvysjw28.0 - 46.0 %Remisol HemeHemoglobin (Bld) [Mass/Vol]14.2 g/nSSrvzet23.0 - 16.0 gm/dLRemisol HemeLymphocytes (Bld) [#/Vol] 1.1 E9/LNormal1.0 - 4.0 E9/LRemisol HemeLymphocytes/100 WBC (Bld)16.1 %Normal 14.0 - 50.0 %Remisol HemeMCH (RBC) [Entitic mass]30.4 osUuhbcd62.0 - 34.0 pg Remisol HemeMCHC (RBC) [Mass/Vol]35.1 g/cCWgddab54.4 - 36.0 gm/dLRemisol HemeMCV (RBC) [Entitic vol]86.7 pBXljlyd11.0 - 100.0 fLRemisol HemeMonocytes (Bld) [#/Vol]0.5 E9/LNormal0.2 - 1.0 E9/LRemisol HemeMonocytes/100 WBC (Bld)7.9 % Normal4.0 - 14.0 %Remisol HemeNeutrophils (Bld) [#/Vol]5.1 E9/LNormal2.0 - 7.5 E9/LRemisol HemeNeutrophils/100 WBC (Bld)75.3 %High36.0 - 75.0 %Remisol Heme Gfodmzvk279.0 E9/LSvjlsn572.0 - 500.0 E9/LRemisol HemePlatelet mean volume (Bld) [Entitic vol]8.5 fLNormal6.4 - 10.8 fLRemisol HemeRBC (Bld) [#/Vol]4.7 E12/L Normal4.3 - 5.9 E12/LRemisol HemeWBC corrected for nucl RBC Auto (Bld) [#/Vol] 6.8 E9/LNormal4.0 - 11.0 E9/LRemisol HemeHEMATOLOGYOrdered By: Mery Lopez on 37-58-9418WXA (Bld) [Velocity]14 mm/hNormal0 - 34 mm/[facility] HemeAutoSSIR catheterization and introduction for sonohysterographyon 65-83[place]79[place] [address] Ultrasound Report Signed Patient: INDU ST MR#: [id number] : 1995 Acct:[id number] Age/Sex: 28 / F ADM Date: 02/18/24 Loc: US Attending Dr: Non-Staff Physician Alda Ordering Physician: PhysicianPalmira M.D. Date of Service: 02/18/24 Procedure(s): US Cath for Sonohysterography Accession Number(s): [id number] cc: CAROLYNE COLLAZO ; Physician,DaciaStaff Alda The [address] [address] Patient Name: INDU ST MRN: [id number] date: 1995 Sex: F Assigned Patient Location: US Current Patient Location: US Accession/Order Number: [id number] Exam Date: 02/18/2024 14:40 Report Date: 02/18/2024 15:58 At the request of: NON-STAFF PHYSICIAN Procedure: US Cath for Sonohysterography EXAM: US sonohysterography, US Cath for Sonohysterography HISTORY: Procreative Management Testing COMPARISON: None. TECHNIQUE: Informed consent was obtained. Preprocedural ultrasound with measurements of follicles followed by insertion of a 5 Fijian hysterosalpingogram catheter and infusion of 30 cc [...] IMPRESSION: Normal exam Electronically authenticated by: ROMY MCKEON Date: 02/18/2024 15:58 Dictated By: Romy Mckeon M.D. Signed By: 02/18/24 1601 DD/ 1558 TD/TT: Carton Making Machine Operator:TBHRadiology, Radiologist, - 02/19/2024 [place] [address] Ultrasound Report Signed Patient: INDU ST MR#: [id number] : 1995 Acct:[id number] Age/Sex: 28 / F ADM Date: 02/18/24 Loc: US Attending Dr: Leila-Staff Physician Lizama Ordering Physician: Plamira Sarah M.D. Date of Service: 02/18/24 Procedure(s): US Cath for Sonohysterography Accession Number(s): [id number] cc: CAROLYNE COLLAZO ; Physician,Non-Staff Alda The [address] [address] Patient Name: INDU ST MRN: [facility]:[id number] date: 1995 Sex: F Assigned Patient Location: US Current Patient Location: US Accession/Order Number: [id number] Exam Date: 02/18/2024 14:40 Report Date: 02/18/2024 15:58 At the request of: NON-STAFF PHYSICIAN Procedure: US Cath for Sonohysterography EXAM: US sonohysterography, US Cath for Sonohysterography HISTORY: Procreative Management Testing COMPARISON: None. TECHNIQUE: Informed consent was obtained. Preprocedural ultrasound with measurements of follicles followed by insertion of a 5 Fijian hysterosalpingogram catheter and infusion of 30 cc [...] IMPRESSION: Normal exam Electronically authenticated by: ROMY MCKEON Date: 02/18/2024 15:58 Dictated By: Romy Mckeon M.D. Signed By: 02/18/24 1601 DD/ 9063 TD/TT: Carton Making Machine Operator: DEION Hartley Panel InformationOrdered By: Radiologist Radiology on 38-39-4198F[facility] Work Phone: No Panel Informationon 61-72-8302Xzboeqtnn Study observation (narrative)DEION WeirSONOHYSTEROGRAPHYon 61-93-1352ZmdWinf[place] [address] Ultrasound Report Signed Patient: INDU ST MR#: [id number] : 1995 Acct:[id number] Age/Sex: 28 / F ADM Date: 02/18/24 Loc: US Attending Dr: Non-Staff Physician Alda Ordering Physician: PhysicianNon-Staff Alda Date of Service: 02/18/24 Procedure(s): US sonohysterography Accession Number(s): [id number] cc: CAROLYNE COLLAZO ; Physician,Non-Staff Alda [place] [id number] Patient Name: INDU ST MRN: [id number] date: 1995 Sex: F Assigned Patient Location: Current Patient Location: Accession/Order Number: [id number] Exam Date: 02/18/2024 14:40 Report Date: 02/18/2024 15:58 At the request of: NON-STAFF PHYSICIAN Procedure: US sonohysterography EXAM: US sonohysterography, US Cath for Sonohysterography HISTORY: Procreative Management Testing COMPARISON: None. TECHNIQUE: Informed consent was obtained. Preprocedural ultrasound with measurements of follicles followed by insertion of a 5 Fijian hysterosalpingogram catheter and infusion of 30 cc [...] IMPRESSION: Normal exam Electronically authenticated by: ROMY MCKEON Date: 02/18/2024 15:58 Dictated By: Romy Mckeon M.D. Signed By: 02/18/24 1607 DD/ 1558 TD/TT: Carton Making Machine Operator:TBHRadiology, Radiologist, - 02/19/2024 [place] [address] Ultrasound Report Signed Patient: INDU ST MR#: [id number] : 1995 Acct:[id number] Age/Sex: 28 / F ADM Date: 02/18/24 Loc: [place] Attending Dr: Leila-Staff Physician Lizama Ordering Physician: Palmira Sarah M.D. Date of Service: 02/18/24 Procedure(s): US sonohysterography Accession Number(s): [id number] cc: CAROLYNE COLLAZO ; Palmira Sarah M.D. The [address] [address] Patient Name: INDU ST MRN: [facility]:[id number] date: 1995 Sex: F Assigned Patient Location: [place] Current Patient Location: [place] Accession/Order Number: [id number] Exam Date: 02/18/2024 14:40 Report Date: 02/18/2024 15:58 At the request of: NON-STAFF PHYSICIAN Procedure: US sonohysterography EXAM: US sonohysterography, US Cath for Sonohysterography HISTORY: Procreative Management Testing COMPARISON: None. TECHNIQUE: Informed consent was obtained. Preprocedural ultrasound with measurements of follicles followed by insertion of a 5 Fijian hysterosalpingogram catheter and infusion of 30 cc [...] IMPRESSION: Normal exam Electronically authenticated by: ROMY MCKEON Date: 02/18/2024 15:58 Dictated By: Romy Mckeon M.D. Signed By: 02/18/24 1601 DD/ 1558 TD/TT: Carton Making Machine Operator: DEION Vargas Automatedon 50-43-4519SBB (Bld) [Velocity]14 mm/hNormal 0-34Fisher Saint Luke InstituteComment on above:Performed By: #### [id number] #### [facility] [address], [place] [address]cIGLyy 00-55-0798wTYX040 mL/min/1.73 x2Kwxrnr>=59Fisher Saint Luke InstituteComment on above:Performed By: #### [id number] #### Sandra [facility] [address] [place], [place] [address]HJZ THYROID STIM HORMONEon 17-12-7537YID Qn1.748 m[IU]/LNOMS HealthcareNo Panel Informationon 11-38-2473ZWGEKWAZMRITF HealthcareTBH PREG QUANT HCGon 72-93-8472DAQ QUANTITATIVE<1mIU/mLNOMS HealthcareComment on above:5- 50 0.2-1 WEEK 50-500 1-2 WEEKS 100-5,000 2-3 WEEKS 500-10,000 3-4 WEEKS 1,000-50,000 4-5 WEEKS 10,000-100,000 5-6 WEEKS 15,000-200,000 6-8 WEEKS 10,000-100,000 2-3 MONTHS FL HYSTEROSALPINGOGRAMon 21-21-6690[place] [address] Fluoroscopy Report Signed Patient: INDU ST MR#: [id number] : 1995 Acct:[id number] Age/Sex: 28 / F ADM Date: 12/24/23 Loc: [place] Attending Dr: Uriel Meade D.O. Ordering Physician: Uriel Meade D.O. Date of Service: 12/24/23 Procedure(s): FL Hysterosal cath placement Accession Number(s): [id number] cc: CAROLYNE COLLAZO ; Uriel Meade D.O. The [place] [id number] Patient Name: INDU ST MRN: [id number] date: 1995 Sex: F Assigned Patient Location: [place] Current Patient Location: Accession/Order Number: [id number] Exam Date: 12/24/2023 14:38 Report Date: 12/24/2023 16:00 At the request of: URIEL MEADE Procedure: FL Hysterosal cath placement EXAM: [...] fallopian tube occlusion Electronically authenticated by: ROMY MCKEON Date: 12/24/2023 16:00 Dictated By: Romy Mckeon M.D. Signed By: 12/24/23 1603 DD/ 1600 TD/TT: Carton Making Machine Operator:TERRYHRadiology, Radiologist, - 12/24/2023 [place] [address] Fluoroscopy Report Signed Patient: INDU ST MR#: [id number] : 1995 Acct:[id number] Age/Sex: 28 / F ADM Date: 12/24/23 Loc: [place] Attending Dr: Uriel Meade D.O. Ordering Physician: Uriel Meade D.O. Date of Service: 12/24/23 Procedure(s): FL Hysterosal cath placement Accession Number(s): [id number] cc: CAROLYNE COLLAZO ; Uriel Meade D.O. The [place] [address] Patient Name: INDU ST MRN: [id number]:[id number] date: 1995 Sex: F Assigned Patient Location: [place] Current Patient Location: Accession/Order Number: [id number] Exam Date: 12/24/2023 14:38 Report Date: 12/24/2023 16:00 At the request of: URIEL MEADE Procedure: FL Hysterosal cath placement EXAM: [...] fallopian tube occlusion Electronically authenticated by: ROMY MCKEON Date: 12/24/2023 16:00 Dictated By: Romy Mckeon M.D. Signed By: 12/24/23 1603 DD/ 1600 TD/TT: Carton Making Machine Operator: DEION Swarm MobileN[place] HYSTEROSALPINGOGRAMOrdered By: Radiologist Radiology on 75-45-0489[facility] Work Phone: [place] HYSTEROSALPINGOGRAPHYon 76-96-[place] [address] Fluoroscopy Report Signed Patient: INDU ST MR#: [id number] : 1995 Acct:[id number] Age/Sex: 28 / F ADM Date: 12/24/23 Loc: [place] Attending Dr: Uriel Meade D.O. Ordering Physician: Uriel Meade D.O. Date of Service: 12/24/23 Procedure(s): FL hysterosalpingography Accession Number(s): [id number] cc: CAROLYNE COLLAZO ; Uriel Meade D.O. The [place] [address] Patient Name: INDU ST MRN: [id number]:[id number] date: 1995 Sex: F Assigned Patient Location: [place] Current Patient Location: [place] Accession/Order Number: [id number] Exam Date: 12/24/2023 14:35 Report Date: 12/24/2023 15:17 At the request of: URIEL MEADE Procedure: FL hysterosalpingography EXAMINATION: FL hysterosalpingography [...] fallopian tube occlusion Electronically authenticated by: ROMY MCKEON Date: 12/24/2023 15:17 Dictated By: Romy Mckeon M.D. Signed By: 12/24/23 1519 DD/ 1517 TD/TT: Carton Making Machine Operator:TBHRadiology, Radiologist, MD - 12/24/2023 [place] [address] Fluoroscopy Report Signed Patient: INDU ST MR#: [id number] : 1995 Acct:[id number] Age/Sex: 28 / F ADM Date: 12/24/23 Loc: [place] Attending Dr: Uriel Meade D.O. Ordering Physician: Uriel Meade D.O. Date of Service: 12/24/23 Procedure(s): FL hysterosalpingography Accession Number(s): [id number] cc: CAROLYNE COLLAZO ; Uriel Meade D.O. The [place] [address] Patient Name: INDU ST MRN: [facility]:[id number] date: 1995 Sex: F Assigned Patient Location: [place] Current Patient Location: [place] Accession/Order Number: [id number] Exam Date: 12/24/2023 14:35 Report Date: 12/24/2023 15:17 At the request of: URIEL MEADE Procedure: FL hysterosalpingography EXAMINATION: FL hysterosalpingography [...] fallopian tube occlusion Electronically authenticated by: ROMY MCKEON Date: 12/24/2023 15:17 Dictated By: Romy Mckeon M.D. Signed By: 12/24/239 DD/ 16 TD/TT: Carton Making Machine Operator: [facility] HYSTEROSALPINGOGRAPHYOrdered By: Radiologist Radiology on 73-83-2716BAGA [employer] Work Phone: No Panel Informationon 49-64-4139Ljjsbwghu Study observation (narrative)[facility] HospitalTBH PREG QUANT HCGon 40-30-6047CUC QUANTITATIVE<1mIU/mLNOMS HealthcareComment on above:5-50 0.2-1 WEEK 50-500 1-2 WEEKS 100-5,000 2-3 WEEKS 500-10,000 3-4 WEEKS 1,000-50,000 4-5 WEEKS 10,000-100,000 5-6 WEEKS 15,000-200,000 6-8 WEEKS 10,000-100,000 2-3 MONTHS CLINMoberly Regional Medical CenterALL PROGESTERONEon 69-79-4880DNOZBVEQQQEH00.8 ng/mL.[facility] HealthcareComment on above:Follicular phase 0.1 - 0.9 Luteal phase 1.8 - 23.9 Ovulation phase 0.1 - 12.0 First trimester 11.0 - 44.3 Second trimester 25.4 - 83.3 Third trimester 58.7 - 214.0 Postmenopausal 0.0 - 0.1 Performed at: [facility] Lab[address] [id number] Financing Analyst: Don Tolentino PhD, Phone: [phone] [facility] HealthSurgical Pathology Reporton 43-28-0943Gsbydv[place] [address]- Surgical Pathology Report Collected Date/Time: 10/15/2023 09:32 [...] and gastric biopsy are four fragments of hathaway/pink tissue ranging from 0.2 cm up to 0.3 cm in greatest dimension. Specimen is entirely submitted in one cassette. B: Received in formalin labeled with patient name, number, and esophageal biopsy are three fragments of hathaway/pink tissue ranging from 0.3 cm up to 0.7 cm in greatest dimension. Specimen is entirely submitted in one cassette. C: Received in formalin labeled with patient name, number, and duodenal biopsy are three fragments of hathaway/pink tissue ranging from 0.1 cm up to 0.2 cm in greatest dimension. The specimen is entirely submitted in one cassette. (DC) DC:[facility] Microscopic Description A-C: Microscopic examination performed unless gross only specified. The use of one or more reagents in the above tests is regulated as an analyte specific reagent (ASR). The test or tests are ordered following initial H&E microscopic examination. The performance characteristics were determined by the Laboratory of [facility]. They have not been cleared or approved by the US Food and Drug Administration. The FDA has determined that such clearance or approval is not necessary. These tests are used for clinical purposes. They should not be regarded as investigational or for research. Appropriate positive and negative controls are performed and are acceptable. NormalMercy Health St. Rita'S Medical CenterComment on above:Performed By: #### [id number] #### Sandra [facility] [address] [place], [place] [address]Wgzv OR Intraoperative Recordon 15-75-6792Uvsb OR Intraoperative RecordMain OR Intraoperative Record IntraOp Document Type FT Summary Primary Physician: Alex Knutson MD Finalized Date/Time: 10/16/23 12:11:53 Pt. Name: INDU ST /Sex: 1995 Female Med Rec #: [id number] Physician: Alex Knutson MD Financial #: [id number] Pt. Type: O Room/Bed: / Admit/Disch: 10/15/23 [...] RN, Promise Willis Role Performed Anesthesiologist of Animal Physiologist - Primary Scrub - Primary Record Time [...] signs and symptoms of infection General Comments: 09-EGD completed/AW RN 927-Colonoscopy started/AW RN Skin Assessment (Pre Procedure) FT Pre-Care Text: Implements protective measures to prevent skin/ tissue injury due to thermal or mechanical sources Evaluates for signs and symptoms of physical injury to skin and tissue Entry 1 Skin Integrity Intact, [place], Warm, & Skin Abnormality No Dry Outcomes [...] for signs and symptom (more content not included)...NormalMercy Health St. Rita'S Medical CenterB hCG Qualon 13-05-2298Hiba HCG ( test) QlNegativeNormSt. Anthony's HospitalComment on above:Performed By: #### [id number] #### [facility] [address], [place] [address]Jgpkyffrx Instructionson 54-21-8604Fisbbufur Instructions Discharge Instructions INDU ST :1995 Visit Date:10/15/2023 Inpatient Discharge [...] weeks Comments: Call for any problems. Where: [address] [place] [address] Jacki, [address] [place] [phone] Business (1) Medications What How Much When Why Instructions Next Dose Unchanged alprazolam (Xanax 0.5 mg Tab) 1 Tablets By Mouth 3 times a day as needed for for anxiety Unchanged cyclophosphamide (cyclophosphamide 50 mg oral capsule) Unchanged fluticasone-salmeterol (Advair HFA 115 mcg-21 mcg/ inh inhalation aerosol with adapter) 2Puffs Inhalation 2 times a day as needed [...] [facility] Your doctor may also give you [...] as instructed. MEDICATIONS Yo (more content not included)...[facility] HospitalComment on above:Result Comment: Electronically Signed By: Mery Crocker RN\.br\Date and Time Signed: 10/15/23 09:50 Sadie 73-20-2607AhyhycnsrrtmihekklxlboodcrNEZ Patient: INDU ST Age: 28 years Sex: Female : 1995 Associated Diagnoses: None Author: Alex Knutson MD Pre-Procedure Procedure Date 10/15/2023 09:52:00 . Procedure Type: Esophagogastroduodenoscopy with biopsy. Procedure provider Performed by Alex [...] Daily, # 527 gm, Refills(s) 5, Pharmacy: [facility] #[id number], 167, cm, 09/13/23 14:57:00 EDT, Height/Length Dosing, 48.9, kg, 09/13/23 14:57:00 EDT, Weight Dosing Pantoprazole [address] Tab: 40 mg = 1 tab(s), Oral, Daily, # 30 tab(s), Refills(s) 4, Pharmacy: [facility] #[id number], 167, cm, 09/13/23 14:57:00 EDT, Height/Length Dosing, [...] TABLET BY MOUTH TWICE DAILY, Refills(s) 0 Anticoagulant/antiplatelet None. ASA Classification: Class II. . Monitoring: See anesthesia record. . Procedure The procedure was performed in the hospital. See anesthesia record for sedation given during procedure. The patient was positioned starting in the left lateral decubitus position and with safety measures. Endoscope type used was an adult- size, introduced orally, advanced to the 3rd portion [...] Normal duodenum. Biopsies obtained Images Procedure images: Rec1_hd_video_4_08_12T08_30_25_299.jpg Rec1_hd_video_4_08_12T08_31_15_481.jpg Rec1_hd_video_4_08_12T08_31_35_887.jpg Rec1_hd_video_4_08_12T08_31_56_149.jpg Rec1_hd_video_4_08_12T08_32_29_708.jpg Rec1_hd_video_4_08_12T08_34_23_470.jpg . Post-Procedure Complications: none. Estimated blood loss: minimal. Specimens: sent to pathology. Devices/ implants: none left in place. Impression and Plan mild gastropathy Recommendations: -Resume previous diet -Resume home medications -Await pathology results, follow in GI clinic in 1-2 after dischargeOhio Valley HospitalComment on above:Other Comment: Missing Attachment - attachment storage system not supported [id number] Can be viewed in source system Missing Attachment - attachment storage system not supported [id number] Can be viewed in source systemMissing Attachment - attachment storage system not supported [id number] Can be viewed in source systemMissing Attachment - attachment storage system not supported [id number] Can be viewed in source systemMissing Attachment - attachment storage system not supported [id number] Can be viewed in source systemMissing Attachment - attachment storage system not supported [id number] Can be viewed in source systemMain OR PACU I Recordon 93-80-1822Iaab OR PACU I RecordMain OR PACU I Record PACU Phase I Document Type FT Summary Primary Physician: Alex Knutson MD Finalized Date/Time: 10/15/23 10:19:29 Pt. Name: ALMA ROSAINDU/Sex: 1995 Female Med Rec #: [id number] Physician: Alex Knutson MD Financial #: [id number] Pt. Type: O Room/Bed: / Admit/Disch: 10/15/23 [...] individualized perioperative plan of care The patient's rightto privacy is maintained The patient's value system, [...] with or improved from baseline levels established preoperativelyThe patient's cardiovascular status is consistent with or improved from baseline levels established preoperatively The patient's cardiovascular status is consistent with or improved from baseline levels established preoperatively The patient demonstrates and/or reports adequate pain control throughout the perioperative period The patient received appropriate medication(s), safely administered during the perioperativeperiod Acuity Level PACU I FT Entry 1 Start Time 10/15/23 09:41:00 Stop Time 10/15/23 10:11:00 Acuity Level Acuity Level I Last Modified By: Mery Crocker RN 10/15/23 10:19:25 Finalized By: Mery Crocker RN Document Signatures Signed By: Mery Crocker RN 10/15/23 10:19NoSumma Health Wadsworth - Rittman Medical CenterMain OR Preoperative Recordon 03-96-7495Brsl OR Preoperative RecordMain OR Preoperative Record Holding Area Document Type FT Summary Primary Physician: Alex Knutson MD Finalized Date/Time: 10/15/23 07:13:13 Pt. Name: ALMA ROSAINDU/Sex: 1995 Female Med Rec #: [id number] Physician: Alex Knutson MD Financial #: [id number] Pt. Type: O Room/Bed: / Admit/Disch: 10/15/23 [...] or her perioperative plan of care The patient'sright to privacy is maintained Surgery Checklist FT [...] Signatures Signed By: Ofe Atkins RN 10/15/23 07:13NormalSelect Medical Specialty Hospital - CincinnatiEROLOGY Ordered By: Germaine Sauer on 06-07-0314Mouy HCG ( test) QlNegative (10/15/23 7:55 AM)[facility] Man SeroAmbulatory Visit Summaryon 09-13-2023 Ambulatory Visit SummaryAmbulatory Visit Summary INDU ST :1995 Visit Date:09/13/2023 [...] Visceral hypersensitivity syndrome Refills: 4 Pickup at [facility] #[id number] New polyethylene glycol 3350 (Miralax 3350 17 gram packet) 17 Gram By Mouth Every day Weight loss Nausea and vomiting Heartburn Bipolar disorder Stress- related physiological response affecting medical condition Visceral hypersensitivity syndrome Refills: 5 Pickup at [facility] #[id number] Unchanged alprazolam (Xanax 0.5 mg Tab) 1 Tablets By Mouth 3 times a day as needed for for anxiety Contact prescribing physician if questions or concerns Unchanged cyclophosphamide (cyclophosphamide 50 mg oral capsule) Contact prescribing physician if questions or concerns Unchanged fluticasone-salmeterol (Advair HFA 115 mcg-21 mcg/ inh inhalation aerosol with adapter) 2Puffs Inhalation 2 times a day Contact prescribing [...] Tab) 30 EA, 0 Refill(s) Contact prescribing physicianif questions or concerns Pharmacy Information [facility] #[id number]: [address] [place], [place] [id number] [phone] Allergies No Known Medication Allergies Problems Ongoing [...] you for choosing us for your care. [facility] HospitalGastroenterology Office/Clinic Noteon 22-71-2345Qcifxxayuhbnzkgz Office/Clinic NoteGastroenterology Office/Clinic Note Chief Complaint ref by Zay- [...] Daily, # 30 tab(s), Refills(s) 4, Pharmacy: [facility] #[id number], 167, cm, 09/13/23 14:57:00 EDT, Height/Length Dosing, 48.9, kg, 09/13/23 14:57:00 EDT, Weight Dosing polyethylene glycol 3350, 17 gm, Oral, Daily, # 527 gm, Refills(s) 5, Pharmacy: [facility] #[id number], 167, cm, 09/13/23 14:57:00 EDT, Height/Length Dosing, 48.9, kg, 09/13/23 14:57:00 EDT, Weight Dosing Colonoscopy (Hospital Procedure) EGD Endoscopy (Hospital Procedure) 2. Nausea and vomiting (R11.2: Nausea with vomiting, unspecified) Ordered: pantoprazole, 40 mg = 1 tab(s), Oral, Daily, # 30 tab(s), Refills(s) 4, Pharmacy: [facility] #[id number], 167, cm, 09/13/23 14:57:00 EDT, Height/Length Dosing, 48.9, kg, 09/13/23 14:57:00 EDT, Weight Dosing polyethylene glycol 3350, 17 gm, Oral, Daily, # 527 gm, Refills(s) 5, Pharmacy: [facility] #[id number], 167, cm, 09/13/23 14:57:00 EDT, Height/Length Dosing, 48.9, kg, 09/13/23 14:57:00 EDT, Weight Dosing Colonoscopy (Hospital Procedure) EGD Endoscopy (Hospital Procedure) 3. Heartburn (R12: Heartburn) Ordered: pantoprazole, 40 mg = 1 tab(s), Oral, Daily, # 30 tab(s), Refills(s) 4, Pharmacy: [facility] #[id number], 167, cm, 09/13/23 14:57:00 EDT, Height/Length Dosing, 48.9, kg, 09/13/23 14:57:00 EDT, Weight Dosing polyethylene glycol 3350, 17 gm, Oral, Daily, # 527 gm, Refills(s) 5, Pharmacy: [facility] #[id number], 167, cm, 09/13/23 14:57:00 EDT, Height/Length Dosing, 48.9, kg, 09/13/23 14:57:00 EDT, Weight Dosing Colonoscopy (Hospital Procedure) EGD Endoscopy (Hospital Procedure) 4. Bipolar disorder (F31.9: Bipolar disorder, unspecified) Ordered: pantoprazole, 40 mg (more content not included)...[facility] HospitalComment on above:Result Comment: Electronically Signed By: Zenia ELLISON, Alex Kapoor.br\Date and Time Signed: 09/12/2414:22 EDTCNPNon 41-10-8369CSVO Telephone (ENDOMN) INDU ST ([id number]) 1995 F Date Time Provider Department 08/14/23 KARINA VINCENT During your visit today, we recorded the following information about you: Twyla Caraballo MA 08/14/2023 11:09 AM Signed Received MRI results completed 08/02/2023, scanned to chart Twyla Caraballo Coffee Sommelier II Endocrinology AND Metabolism [place] [facility] F20 AND X20 Allergies As of [...] (None) Encounter Status:Closed by TWYLA CARABALLO on 08/14/23[facility] Pituitary and Sella turcica WO and W contrast [place] 74-65-4353[place], [place] [address] Magnetic Resonance Report Signed Patient: INDU ST MR#: [id number] : 1995 Acct:[id number] Age/Sex: 27 / F ADM Date: 08/02/23 Loc: MRI Attending Dr: Non-Staff Physician Alda Ordering Physician: PhysicianNon-Staff Alda Date of Service: 08/02/23 Procedure(s): pituitary wo/w con Accession Number(s): [id number] cc: CAROLYNE COLLAZO ; Physician,Non-Staff Alda [address] [address] Patient Name: INDU ST MRN: [facility]:[id number] date: 1995 Sex: F Assigned Patient Location: MRI Current Patient Location: Accession/Order Number: [id number] Exam Date: 08/02/2023 14:35 Report Date: 08/04/2023 [...] M.D. Signed By: 08/04/232322 DD/ 19 TD/TT: Carton Making Machine Operator:TBHRadiology, Radiologist, - 08/04/2023 [place] [address] Magnetic Resonance Report Signed Patient: INDU ST MR#: [id number] : 1995 Acct:[id number] Age/Sex: 27 / F ADM Date: 08/02/23 Loc: [place] Attending Dr: Non-Staff Physician Alda Ordering Physician: Palmira Sarah M.D. Date of Service: 08/02/23 Procedure(s): MR pituitary wo/w con Accession Number(s): [id number] cc: CAROLYNE COLLAZO ; PhysicianDaciaStaff Alda [address] [address] Patient Name: INDU ST MRN: [facility]:[id number] date: 1995 Sex: F Assigned Patient Location: MRI Current Patient Location: Accession/Order Number: [id number] Exam Date: 08/02/2023 14:35 Report Date: 08/04/2023 [...] M.D. Signed By: 08/04/232322 DD/ 19 TD/TT: Carton Making Machine Operator: DEION HealthcareRadiology Study observation (narrative)[facility] Pituitary and Sella turcica WO and W contrast IVOrdered By: Radiologist Radiology on 07-06-0962JDNP Healthcare Work Phone: cbc W Auto Differential panel (Bld)on 07-20-2023 Basophils (Bld) [#/Vol]0.03 10*3/[facility] Basophils/100 WBC (Bld)0.3 %0.0 - 2.0 %[facility] Eosinophils (Bld) [#/Vol]0.00 10*3/uLProMedica Defiance Regional Hospital Eosinophils/100 WBC (Bld)0.0 %0.0 - 6.0 %[facility] Erythrocyte distribution width (RBC) [Ratio]14.5 %11.5 - 14.5 %[facility] HospitalHematocrit (Bld) [Volume fraction]39.1 %36.0 - 46.0 % [facility] HospitalHemoglobin (Bld) [Mass/Vol]13.5 g/dL12.0 - 16.0 g/dLUnThe Jewish HospitalImsaint mary's health center granulocytes (Bld) [#/Vol]0.03 10*3/[facility] granulocytes/100 WBC (Bld)0.3 % 0.0 - 0.9 %[facility] HospitalComment on above:Immature Granulocyte Count (IG) includes promyelocytes, myelocytes and metamyelocytes but does not include bands. Percent differential counts (%) should be interpreted in the context of the absolute cell counts (cells/UL).Interpretation and review of laboratory resultsAbnormalUniversGreene County General HospitalLymphocytes (Bld) [#/Vol]0.98 10*3/uLLowUnThe Jewish HospitalLymphocytes/100 WBC (Bld) 8.5 %13.0 - 44.0 %[facility] HospitalH (RBC) [Entitic mass]28.7 pg26.0 - 34.0 pgUnBluffton HospitalHC (RBC) [Mass/Vol]34.5 g/dL 32.0 - 36.0 g/dLUnBluffton HospitalV (RBC) [Entitic vol]83 fL80 - 100 fLUniversGreene County General HospitalMonocytes (Bld) [#/Vol]0.13 10*3/uL [facility] HospitalMonocytes/100 WBC (Bld)1.1 %2.0 - 10.0 % [facility] HospitalNeutrophils (Bld) [#/Vol]10.32 10*3/uLHigh [facility] HospitalComment on above:Percent differential counts (%) should be interpreted in the context of the absolute cell counts (cells/uL). Neutrophils/100 WBC (Bld)89.8 %40.0 - 80.0 %[facility] Nucleated RBC/100 WBC (Bld) [Ratio]0.0 %[facility] Platelets (Bld) [#/Vol]290 10*3/[facility] CenterRBC (Bld) [#/Vol]4.71 10*6/[facility] CenterWBC (Bld) [#/Vol]11.5 10*3/Protestant HospitalUnThe Jewish Hospital Basophils (Bld) [#/Vol]0.03 x10*3/uLNormal0.00-0.10Uc Medical CenterComment on above:Performed By: #### [id number] #### JIMENA Mark ([id number]) [facility] ([facility] [place] [address] [place] [address]Bnneawdze/100 WBC (Bld)0.3 %Normal0.0-2.0UnMercy Health St. Rita's Medical CenterComment on above:Performed By: #### 13496-3 #### JIMENA Mark ([id number]) [facility] ([facility] [place] [address] [place] [address]Bvhyufbkist (Bld) [#/Vol]0.00 x10*3/uLNormal0.00-0.70Uc Medical CenterComment on above:Performed By: #### 85615-1 #### JIMENA Mark ([id number]) [facility] ([facility] [place] [address] [place] [address]Hgzutnvyjlv/100 WBC (Bld)0.0 %Normal0.0-6.0UnMercy Health St. Rita's Medical CenterComment on above:Performed By: #### 59180-3 #### JIMENA Mark ([id number]) [facility] ([facility] [place] [address] [place] [address] 37672Kgmxcbokbgu distribution width (RBC) [Ratio]14.5 %Normal 11.5-14.5UnMercy Health St. Rita's Medical CenterComment on above:Performed By: #### 45987-2 #### JIMENA Mark ([id number]) [facility] ([facility] [place] [address] [place] [address] 34118Zoqywbfqok (Bld) [Volume fraction]39.1 %Lnxrme38.0-46.0 [facility] CenterComment on above:Performed By: #### 25504-9 #### JIMENA Mark ([id number]) [facility] ([facility] [place] [address] [place] [address] 97067Jwsmjaqros (Bld) [Mass/Vol]13.5 g/jVMptqya70.0-16.0UnMercy Health St. Rita's Medical CenterComment on above:Performed By: #### 34305-6 #### JIMENA Mark ([id number]) [facility] ([facility] [place] [address] [place] [address] 64151Lrbsciux granulocytes (Bld) [#/Vol]0.03 x10*3/uLNormal0.00-0.70 [facility] CenterComment on above:Performed By: #### 57897-8 #### JIMENA Mark ([id number]) [facility] ([facility] [place] [address] [place] [address] 04458Druymppl granulocytes/100 WBC (Bld)0.3 %Normal0.0-0.9UnMercy Health St. Rita's Medical CenterComment on above:Result Comment: Immature Granulocyte Count (IG) includes promyelocytes, myelocytes and metamyelocytes but does not include bands. Percent differential counts (%) should be interpreted in the context of the absolute cell counts (cells/UL).Performed By: #### 14570-3 #### JIMENA Mark ([id number]) [facility] ([facility] [place] [address] [place] [address] 03591Bnxyhsfwiso (Bld) [#/Vol]0.98 x10*3/uLLow1.20-4.80UnMercy Health St. Rita's Medical CenterComment on above:Performed By: #### 34313-5 #### JIMENA Mark ([id number]) [facility] ([facility] [place] [address] [place], [place] [address]Lymphocytes/100 WBC (Bld)8.5 %Kdumic13.0-44.0UnMercy Health St. Rita's Medical CenterComment on above:Performed By: #### 45438-9 #### JIMENA Mark ([id number]) [facility] ([facility] [place] [address] [place], [place] [address]H (RBC) [Entitic mass]28.7 voPnlyrt75.0-34.0UnMercy Health St. Rita's Medical CenterComment on above:Performed By: #### 38023-2 #### JIMENA Mark ([id number]) [facility] ([facility] [place] [address] [place], [place] [address]MCHC (RBC) [Mass/Vol]34.5 g/aAKdnpxv65.0-36.0UnMercy Health St. Rita's Medical CenterComment on above:Performed By: #### 58039-6 #### JIMENA Mark ([id number]) [facility] ([facility] [place] [address] [place], [place] [address]V (RBC) [Entitic vol]83 kWPvajts61-188GeysvrvpoqMercy Health St. Rita's Medical CenterComment on above:Performed By: #### 01777-2 #### JIMENA Mark ([id number]) [facility] ([facility] [place] [address] [place] [address] 81296Rtnefchfd (Bld) [#/Vol]0.13 x10*3/uLNormal0.10-1.00UnMercy Health St. Rita's Medical CenterComment on above:Performed By: #### 52347-9 #### JIMENA Mark ([id number]) [facility] ([facility] [place] [address] [place] [address] 88037Bjlakxanh/100 WBC (Bld)1.1 %Normal2.0-10.0UnMercy Health St. Rita's Medical CenterComment on above:Performed By: #### 85897-5 #### JIMENA Mark ([id number]) [facility] ([facility] [place] [address] [place] [address] 47611Knrfmqxmrix (Bld) [#/Vol]10.32 x10*3/uLHigh1.20-7.70UnMercy Health St. Rita's Medical CenterComment on above:Result Comment: Percent differential counts (%) should be interpreted in the context of the absolute cell counts (cells/uL).Performed By: #### 40410-4 #### JIMENA Mark ([id number]) [facility] ([facility] [place] [address] [place] [address] 42640Mzeuoggztyn/100 WBC (Bld)89.8 %Zkyohu59.0-80.0UnMercy Health St. Rita's Medical CenterComment on above:Performed By: #### 63611-9 #### JIMENA Mark ([id number]) [facility] ([facility] [place] [address] [place] [address] 69603Xgwdrikpd RBC/100 WBC (Bld) [Ratio]0.0 /100 WBCsNormal0.0-0.0 [facility] Medical CenterComment on above:Performed By: #### 47326-6 #### JIMENA Mark ([id number]) [facility] ([facility] [place] [address] [place] [address] 87047Mjyrxtcnq (Bld) [#/Vol]290 x10*3/pGDxpjsd870-544XkcapeykflMercy Health St. Rita's Medical CenterComment on above:Performed By: #### 24870-6 #### JIMENA Mark ([id number]) [facility] ([facility] [place] [address] [place] [address] 94360KVT (Bld) [#/Vol]4.71 x10*6/uLNormal4.00-5.20UnMercy Health St. Rita's Medical CenterComment on above:Performed By: #### 05097-7 #### JIMENA Mark ([id number]) [facility] ([facility] [place] [address], [place] [address]YDR (Bld) [#/Vol]11.5 x10*3/uLHigh4.4-11.3UnMercy Health St. Rita's Medical CenterComment on above:Performed By: #### 49586-2 #### JIMENA Mark ([id number]) [facility] ([facility] [place] [address], [place] [address]MJ CHEST ABDOMEN PELVIS W IV CONTRASTon [id number] CHEST ABDOMEN PELVIS W IV CONTRASTInterpreted By: Mag Santiago, STUDY: CT CHEST ABDOMEN PELVIS W IV CONTRAST; 07/20/2023 5:39 pm INDICATION: Signs/Symptoms:Persistent vomiting, epigastric pain in the chest.. COMPARISON: Chest x-ray 07/20/2023. ACCESSION NUMBER(S): [id number] ORDERING CLINICIAN: ABIODUN OCHOA TECHNIQUE: Axial CT [...] is normal. VESSELS: No abdominal aortic aneurysm. PERITONEUM/RETROPERITONEUM/LYMPH NODES: No free fluid or free air. [...] Mag Santiago 07/20/2023 6:51 PM Dictation workstation: [id number] Valley Community HospitalCT Chest and Abdomen and Pelvis W contrast Cortes [id number]: 1. No consolidation or pleural effusion. 2. [...] Mag Santiago 07/20/2023 6:51 PM Dictation workstation: [id number] By: Mag Santiago, STUDY: CT CHEST ABDOMEN PELVIS W IV CONTRAST; 07/20/2023 5:39 pm INDICATION: Signs/Symptoms:Persistent vomiting, epigastric pain in the chest.. COMPARISON: Chest x-ray 07/20/2023. ACCESSION NUMBER(S): [id number] ORDERING CLINICIAN: ABIODUN OCHOA TECHNIQUE: Axial CT [...] is normal. VESSELS: No abdominal aortic aneurysm. PERITONEUM/RETROPERITONEUM/LYMPH NODES: No free fluid or free air. No retroperitoneal hemorrhage. No pathologically enlarged lymph nodes are identified. BONE AND SOFT TISSUE: No acute osseous findings. . The abdominal wall soft tissues are within normal limits. MMMag Sheehan, DO - 07/20/2023 Interpreted By: Mag Santiago, STUDY: CT CHEST ABDOMEN PELVIS W IV CONTRAST; 07/20/2023 5:39 pm INDICATION: Signs/Symptoms:Persistent vomiting, epigastric pain in the chest.. COMPARISON: Chest x-ray 07/20/2023. ACCESSION NUMBER(S): [id number] ORDERING CLINICIAN: ABIODUN OCHOA TECHNIQUE: Axial CT [...] is normal. VESSELS: No abdominal aortic aneurysm. PERITONEUM/RETROPERITONEUM/LYMPH NODES: No free fluid or free air. [...] Mag Santiago 07/20/2023 6:51 PM Dictation workstation: [id number] [facility] Work Phone: Radiology Study observation (narrative)[facility] Work Phone: CT Chest and Abdomen and Pelvis W contrast IVOrdered By: Mag Santiago on 77-83-1203RxolgcjttdThe [facility] Hospital Work Phone: Choriogonadotropin.beta subuniton 88-38-2346ENO.beta subunit Qnm[IU]/mLNormal<5UnMercy Health St. Rita's Medical CenterComment on above:Order Comment: Total HCG measurement is performed using the Jade Saleem Access Immunoassay which detects intact HCG and free beta HCG subunit. This test is not indicated for use as a tumor marker. HCG testing is performed using a different test methodology at [facility] than other [facility]. Direct result comparison should only be made within the same method.Performed By: #### 48278-7 #### JIMENA Mark ([id number]) [facility] ([facility] [place] [address] [place] [address] 94819Ddqnsjgjwgrdi metabolic 2000 panelon 00-99-5300Zaxvwiv BCP dye [Mass/Vol]4.7 g/dL3.4 - 5.0 g/dLUnThe Jewish HospitalALP [Catalytic activity/Vol]47 U/L33 - 110 U/[facility] SystemALT With P-5'-P [Catalytic activity/Vol]14 U/L7 - 45 U/[facility] SystemComment on above:Patients treated with Sulfasalazine may generate falsely decreased results for ALT.Anion gap [Moles/Vol]18 mmol/L10 - 20 mmol/[facility] SystemAST With P-5'-P [Catalytic activity/Vol]15 U/L9 - 39 U/[facility] SystemBilirubin [Mass/Vol]0.6 mg/dL0.0 - 1.2 mg/dLUnThe Jewish HospitalCalcium [Mass/Vol]9.8 mg/dL8.6 - 10.3 mg/dLUnThe Jewish HospitalChloride [Moles/Vol]105 mmol/L98 - 107 mmol/[facility] SystemCO2 [Moles/Vol]19 mmol/LLow21 - 32 mmol/[facility] SystemCreatinine [Mass/Vol]0.77 mg/dL0.50 - 1.05 mg/dLUnThe Jewish HospitaleGFR- PINFUniOhioHealth Grady Memorial HospitalComment on above:Calculations of estimated GFR are performed using the 2020 CKD-EPI Study Refit equation without therace variable for the IDMS-Traceable creatinine methods. https://jasn.asnjournals.org/content//ASN.5544079818 Glucose [Mass/Vol]147 mg/yDYtda63 - 99 mg/dLUnThe Jewish Hospital Interpretation and review of laboratory resultsAbnormalUniOhioHealth Grady Memorial HospitalPotassium [Moles/Vol]3.8 mmol/L3.5 - 5.3 mmol/[facility] SystemProtein [Mass/Vol]7.3 g/dL6.4 - 8.2 g/dLUnThe Jewish HospitalSodium [Moles/Vol]138 mmol/L136 - 145 mmol/[facility] Health SystemUrea nitrogen [Mass/Vol]15 mg/dL6 - 23 mg/dLUnThe Jewish HospitalUnThe Jewish HospitalAlbumin BCP dye [Mass/Vol]4.7 g/dL Normal3.4-5.0UnMercy Health St. Rita's Medical CenterComment on above: Performed By: #### 77005-1 #### JIMENA Mark ([id number]) [facility] ([facility] [place] [address] [place] [address] 61204XUV [Catalytic activity/Vol]47 U/NSwydtv30-520SlowbftqmwMercy Health St. Rita's Medical CenterComment on above:Performed By: #### 50896-4 #### JIMENA Mark ([id number]) [facility] ([facility] [place] [address] [place] [address] 84962SDT With P-5'-P [Catalytic activity/Vol]14 U/LNormal7-45 [facility] CenterComment on above:Result Comment: Patients treated with Sulfasalazine may generate falsely decreased results for ALT.Performed By: #### 51070-1 #### JIMENA Mark ([id number]) [facility] ([facility] [place] [address] [place] [address] 88708Sjqxz gap [Moles/Vol]18 mmol/CKtkybq95-62MprmojpztoMercy Health St. Rita's Medical CenterComment on above:Performed By: #### 02599-3 #### JIMENA Mark ([id number]) [facility] ([facility] [place] [address] [place] [address] 19191KRC With P-5'-P [Catalytic activity/Vol]15 U/LNormal9-39 [facility] CenterComment on above:Performed By: #### 38826-6 #### JIMENA Mark ([id number]) [facility] ([facility] [place] [address] [place] [address] 16807Opetkyfln [Mass/Vol]0.6 mg/dLNormal0.0-1.2UnMercy Health St. Rita's Medical CenterComment on above:Performed By: #### 85353-4 #### JIMENA Mark ([id number]) [facility] ([facility] [place] [address] [place] [address] 68409Uukltly [Mass/Vol]9.8 mg/dLNormal8.6-10.3UnMercy Health St. Rita's Medical CenterComment on above:Performed By: #### 21921-1 #### JIMENA Mark ([id number]) [facility] ([facility] [place] [address] [place] [address] 80347Qbwavjyy [Moles/Vol]105 mmol/MZkaxun93-868ZiiclnuqweMercy Health St. Rita's Medical CenterComment on above:Performed By: #### 85719-7 #### JIMENA Mark ([id number]) [facility] ([facility] [place] [address] [place] [address] 02703ZA6 [Moles/Vol]19 mmol/QIfo20-62PyqeociacgMercy Health St. Rita's Medical CenterComment on above:Performed By: #### 21856-5 #### JIMENA Mark ([id number]) [facility] ([facility] [place] [address] [place] [address] 35853Blrfkiuhve [Mass/Vol]0.77 mg/dLNormal0.50-1.05UnMercy Health St. Rita's Medical CenterComment on above:Performed By: #### 13376-4 #### JIMENA Mark ([id number]) [facility] ([facility] [place] [address] [place] [address] 55301JCI/1.73 sq M.predicted MDRD (S/P/Bld) [Vol rate/Area] mL/min/{1.73_m2}Normal>60UnMercy Health St. Rita's Medical CenterComment on above:Result Comment: Calculations of estimated GFR are performed using the 2020 CKD-EPI Study Refit equation without the race variable for the IDMS-Traceable creatinine methods. https://jasn.asnjournals.org/content/early//ASN.8339754598Wcmhtxaun By: #### 93631-1 #### JIMENA Mark ([id number]) [facility] ([facility] [place] [address] [place] [address] 55904Jjskxrd [Mass/Vol]147 mg/pTIluj84-44MpkwvkynepMercy Health St. Rita's Medical CenterComment on above:Performed By: #### 09796-9 #### JIMENA Mark ([id number]) [facility] ([facility] [facility] [place] [address] [place] [address] 02989Axatepzzk [Moles/Vol]3.8 mmol/LNormal3.5-5.3UnMercy Health St. Rita's Medical CenterComment on above:Performed By: #### 31799-7 #### JIMENA Mark ([id number]) [facility] ([facility] [place] [address] [place] [address] 45393Fheeggk [Mass/Vol]7.3 g/dLNormal6.4-8.2UnMercy Health St. Rita's Medical CenterComment on above:Performed By: #### 17791-2 #### JIMENA Mark ([id number]) [facility] ([facility] [place] [address] [place] [address] 69818Cgbkcg [Moles/Vol]138 mmol/BNjlngb314-875SbcqdhvnejUc Medical CenterComment on above:Performed By: #### 50349-7 #### JIMENA Mark ([id number]) [facility] ([facility] [place] [address] [place] [address] 41337Gloi nitrogen [Mass/Vol]15 mg/dLNormal6-23[facility] Medical CenterComment on above:Performed By: #### 50646-2 #### JIMENA Mark ([id number]) [facility] ([facility] [place] [address] [place] [address] 06060TGTC SCREEN,URINEon 71-16-6061Drxkhdhcoher Screen Ql (U) NegativeNormalPresumptive NegativeUc Medical Center Comment on above:Order Comment: Drug screen results are presumptive and should not be used to assess compliance with prescribed medication. Contact the performing [facility] laboratory to add-on definitive confirmatory testing [...] to the laboratory medical directors. Result Comment: CUTOFF LEVEL: 500 NG/ML Cross-reactivity has been reported with high concentrations of the following drugs: buproprion, chloroquine, chlorpromazine, ephedrine, mephentermine, fenfluramine, phentermine, phenylpropanolamine, pseudoephedrine, and propranolol.Performed By: #### DRUG3 #### JIMENA Mark ([id number]) [facility] ([facility] [place] [address] [place] [address] 08719Hcxnisqenbdo Screen Ql (U)NegativeNormalPresumptive Negative [facility] CenterComment on above:Order Comment: Drug screen results are presumptive and should not be used to assess compliance with prescribed medication. Contact the performing [facility] laboratory to add-on definitive confirmatory testing [...] to the laboratory medical directors. Result Comment: CUTOFF LEVEL: 200 NG/MLPerformed By: #### DRUG3 #### JIMENA Mark ([id number]) [facility] ([facility] [place] [address] [place] [address] 44595Sqnclbixpjxrfwg Ql (U)NegativeNormalPresshiprock-northern navajo medical centerbtive Negative [facility] CenterComment on above:Order Comment: Drug screen results are presumptive and should not be used to assess compliance with prescribed medication. Contact the performing [facility] laboratory to add-on definitive confirmatory testing [...] to the laboratory medical directors. Result Comment: CUTOFF LEVEL: 200 NG/MLPerformed By: #### DRUG3 #### JIMENA Mark ([id number]) [facility] ([facility] [place] [address] [place] [address] 52463Likriwijkdqchby Screen Ql (U)NegativeNormalPresumptive Negative [facility] CenterComment on above:Order Comment: Drug screen results are presumptive and should not be used to assess compliance with prescribed medication. Contact the performing [facility] laboratory to add-on definitive confirmatory testing [...] to the laboratory medical directors. Result Comment: CUTOFF LEVEL: 150 NG/MLPerformed By: #### DRUG3 #### JIMENA Mark ([id number]) [facility] ([facility] [place] [address] [place] [address] [phone] Screen Ql (U)PositiveAbnormalPresumptive Negative [facility] CenterComment on above:Order Comment: Drug screen results are presumptive and should not be used to assess compliance with prescribed medication. Contact the performing [facility] laboratory to add-on definitive confirmatory testing [...] to the laboratory medical directors. Result Comment: CUTOFF LEVEL: 50 NG/MLPerformed By: #### DRUG3 #### JIMENA Mark ([id number]) [facility] ([facility] [place] [address] [place] [address] 49795zuvgmNLA+Norfentanyl Screen Ql (U)NegativeNormalPresumptive NegativeUc Medical CenterComment on above:Order Comment: Drug screen results are presumptive and should not be used to assess compliance with prescribed medication. Contact the performing [facility] laboratory to add-on definitive confirmatory testing [...] to the laboratory medical directors. Result Comment: CUTOFF LEVEL: 5 NG/MLPerformed By: #### DRUG3 #### JIMENA Mark ([id number]) [facility] ([facility] [place] [address] [place], [place] [address]Dussulaue Screen Ql (U)NegativeNormalPresumptive Negative [facility] CenterComment on above:Order Comment: Drug screen results are presumptive and should not be used to assess compliance with prescribed medication. Contact the performing [facility] laboratory to add-on definitive confirmatory testing [...] to the laboratory medical directors. Result Comment: CUTOFF LEVEL: 150 NG/ML The metabolite I-akzoz-hoqcvmuijptnlh (LAAM) is not detected by this method in concentrations that would be found in the urine of patients on LAAM therapy.Performed By: #### DRUG3 #### JIMENA Mark ([id number]) [facility] ([facility] [place] [address] [place], [place] [address]Iospwzu Screen Ql (U)NegativeNormalPresumptive Negative [facility] CenterComment on above:Order Comment: Drug screen results are presumptive and should not be used to assess compliance with prescribed medication. Contact the performing [facility] laboratory to add-on definitive confirmatory testing [...] to the laboratory medical directors. Result Comment: CUTOFF LEVEL: 300 NG/ML The opiate screen does not detect fentanyl, meperidine, or tramadol. Oxycodone is not consistently detected (refer to Oxycodone Screen, Urine result).Performed By: #### DRUG3 #### JIMENA Mark ([id number]) [facility] ([facility] [place] [address] [place] [address] 19456ysnNLGOLS+oxyMORphone Screen Ql (U)NegativeNormalPresumptive NegativeUc Medical CenterComment on above:Order Comment: Drug screen results are presumptive and should not be used to assess compliance with prescribed medication. Contact the performing [facility] laboratory to add-on definitive confirmatory testing [...] to the laboratory medical directors. Result Comment: CUTOFF LEVEL: 100 NG/ML This test will accurately detect both oxycodone and oxymorphone.Performed By: #### DRUG3 #### JIMENA Mark ([id number]) [facility] ([facility] [place] [address] [place] [address] 34332Finicdugxfkfv Ql (U)NegativeNormalPresumptive Negative [facility] CenterComment on above:Order Comment: Drug screen results are presumptive and should not be used to assess compliance with prescribed medication. Contact the performing [facility] laboratory to add-on definitive confirmatory testing [...] to the laboratory medical directors. Result Comment: CUTOFF LEVEL: 25 NG/ML Cross-reactivity has been reported with dextromethorphan.Performed By: #### DRUG3 #### JIMENA Mark ([id number]) [facility] ([facility] [place] [address] [place] [address] 72151Mkgj Screen, Urineon 61-28-7615Vmrkvutzwsyy Screen Ql (U) NegativePresumptive [facility] on above: CUTOFF LEVEL: 500 NG/ML Cross-reactivity has been reported with high concentrations of the following drugs: buproprion, chloroquine, chlorpromazine, ephedrine, mephentermine, fenfluramine, phentermine, phenylpropanolamine, pseudoephedrine, and propranolol. Barbiturates Screen Ql (U)NegativePresumptive [facility] on above:CUTOFF LEVEL: 200 NG/MLBenzodiazepines Ql (U)Negative Presumptive [facility] on above:CUTOFF LEVEL: 200 NG/MLBenzoylecgonine Screen Ql (U)NegativePresumptive Negative [facility] on above:CUTOFF LEVEL: 150 NG/ML Cannabinoids Screen Ql (U)PositiveAbnormalPresumptive [facility] on above:CUTOFF LEVEL: 50 NG/ML fentaNYL+Norfentanyl Screen Ql (U)NegativePresumptive [facility] on above:CUTOFF LEVEL: 5 NG/MLInterpretation and review of laboratory resultsAbBarberton Citizens HospitalMethadone Screen Ql (U)NegativePresumptive [facility] Comment on above:CUTOFF LEVEL: 150 NG/ML The metabolite B-gujni-aejvapmnvpfcgb (LAAM) is not detected by this method in concentrations that would be found in the urine of patients on LAAM therapy. Opiates Screen Ql (U)NegativePresumptive NegativeClermont County Hospital on above:CUTOFF LEVEL: 300 NG/ML The opiate screen does not detect fentanyl, meperidine, or tramadol. Oxycodone is not consistently detected (refer to Oxycodone Screen, Urine result). oxyCODONE+oxyMORphone Screen Ql (U)NegativePresumptive NegativeClermont County Hospital on above:CUTOFF LEVEL: 100 NG/ML This test will accurately detect both oxycodone and oxymorphone. Phencyclidine Ql (U)NegativePresumptive [facility] on above:CUTOFF LEVEL: 25 NG/ML Cross-reactivity has been reported with dextromethorphan. Drug screen results are presumptive and should not be used to assess compliance with prescribed medication. Contact the performing [facility] laboratory to add-on definitive confirmatory testing [...] be directed to the laboratory medical directors. [facility] HospitalEC 12-LEADon 08-83-3848YKH 12-LEADVentricular Rate 68 Atrial Rate 67 P-R Interval 110 QRS Duration 126 Q-T Interval 419 QTC Calculation(Bazett) 446 P Ana[place] 82 R [place] 77 T [place] 67 QRS Count 11 Q Onset 249 T Offset 459 QTC Fredericia 437 Diagnosis Sinus rhythm Borderline short TX interval Nonspecific intraventricular conduction delay ST elev, probable normal early repol pattern See ED provider note for full interpretation and clinical correlation Confirmed by Lynsey Luna ([id number]) on 07/28/2023 12:23:14 [facility] HospitalHCG.beta subunit Qnon 24-03-7756Kcjnbtlwmebocz and review of laboratory resultsNormalUniversity Hospitals of ClevelandTotal HCG measurement is performed using the Jade Saleem Access Immunoassay which detects intact HCG and free beta HCG subunit. This test is not indicated for use as a tumor marker. HCG testing is performed using a different test methodology at [facility] than other [facility]. Direct result comparison should only be made within the same method. [facility] HospitalHuman Chorionic Gonadotropin, Serum Quantitativeon 70-83-4938ERQ.beta subunit QnNINF [facility] HospitalLactateon 77-68-1126Kgnywwo [Moles/Vol]1.4 mmol/L0.4 - 2.0 mmol/[facility] State Health SystemLaneate [Moles/Vol]1.4 mmol/LNormal0.4-2.0Uc Medical CenterComment on above: Order Comment: Venipuncture immediately after or during the administration of Metamizole may lead to falsely low results. Testing should be performed immediately prior to Metamizole dosing.Performed By: #### 2524-7 #### JIMENA Mark ([id number]) [facility] ([facility] [place] [address] [place] [address] 31473Rbgnmur [Moles/Vol]2.2 mmol/LHigh0.4 - 2.0 mmol/[facility] State Health SystemLactate [Moles/Vol]2.2 mmol/LHigh0.4-2.0Uc Medical CenterComment on above:Order Comment: Venipuncture immediately after or during the administration of Metamizole may lead to falsely low results. Testing should be performed immediately prior to Metamizole dosing.Performed By: #### 2524-7 #### JIMENA Mark ([id number]) [facility] ([facility] [place] [address] [place] [address] 12904Dqykcfr [Moles/Vol]on 85-33-2379Ldxicrjbjbdeut and review of laboratory resultsNoMemorial Health System Selby General HospitalVenipuncture immediately after or during the administration of Metamizole may lead to falsely low results. Testing should be performed immediately prior to Metamizole dosing.[facility] HospitalInterpretation and review of laboratory resultsAbnormalUProMedica Fostoria Community HospitalVenipuncture immediately after or during the administration of Metamizole may lead to falsely low results. Testing should be performed immediately prior to Metamizole dosing.[facility] HospitalLipaseon 25-52-3994Prdzwn [Catalytic activity/Vol]10 U/L9 - 82 U/L [facility] HospitalLipase [Catalytic activity/Vol]on 07-20-2023 Interpretation and review of laboratory resultsNoMemorial Health System Selby General HospitalVenipuncture immediately after or during the administration of Metamizole may lead to falsely low results. Testing should be performed immediately prior to Metamizole dosing.[facility] - WestTriacylglycerol lipaseon 02-52-8215Dtkrpz [Catalytic activity/Vol]10 U/LNormal9-82Uc Medical CenterComment on above:Order Comment: Venipuncture immediately after or during the administration of Metamizole may lead to falsely low results. Testing should be performed immediately prior to Metamizole dosing.Performed By: #### 3040-3 #### JIMENA Mark ([id number]) [facility] ([facility]) [address] [place], [place] [address]Gcjcvhrc I.cardiac panel High sensitivity methodon 07-20-2023 Interpretation and review of laboratory resultsNoMemorial Health System Selby General HospitalLess than 99th percentile of normal range cutoff- [...] performed using a different testing methodology at [facility] than at other [facility]. Direct result comparisons should only be made within the same method.[facility] HospitalTroponin I, High Sensitivityon 07-89-9029Lxacrkyh I.cardiac panel High sensitivity methodng/L0 - 13 ng/LUnThe Jewish HospitalTroponin I.cardiac panelon 64-81-3986Yidvhfdd I.cardiac panel High sensitivity method<4Ndllwg6-73GlklrikyqqMercy Health St. Rita's Medical CenterComment on above:Order Comment: Venipuncture immediately after or during the administration of Metamizole may lead to falsely low results. Testing should be performed immediately prior to Metamizole dosing.Performed By: #### 2524-7 #### JIMENA Mark ([id number]) [facility] ([facility]) [address], [place] [address]Gskcvsvevu complete W Reflex Culture panel (U)on 07-20-2023 Appearance (U)HazyAbnormalClearProMedica Defiance Regional HospitalBilirubin (U) [Mass/Vol]NegativeNEGATIVEUnThe Jewish HospitalColor (U)YellowStraw, YellowUnThe Jewish HospitalEpithelial cells.squamous Auto (Urine sed) [#/Area]1-9 (SPARSE)Reference range not established. /HPFUnThe Jewish HospitalGlucose Auto test strip (U) [Mass/Vol]NegativeNEGATIVE mg/dLUnThe Jewish HospitalInterpretation and review of laboratory resultsAbnormalUniOhioHealth Grady Memorial HospitalKetones (U) [Mass/Vol]80 (2+) AbnormalNEGATIVE mg/dLUnThe Jewish HospitalLeukocyte esterase Auto test strip Ql (U)NegativeNEGATIVEUnThe Jewish HospitalMucus Auto (Urine sed) [#/Area]4+Reference range not established. /LPFUniOhioHealth Grady Memorial HospitalNitrite Auto test strip Ql (U)NegativeNEGATIVEUnThe Jewish HospitalpH (U)9.0 [pH]Abnormal5.0, 5.5, 6.0, 6.5, 7.0, 7.5, 8.0UnThe Jewish HospitalProtein (U) [Mass/Vol]>=500 (3+)AbnormalNEGATIVE mg/dL [facility] HospitalRBC (U) [#/Vol]NegativeNEGATIVEUnThe Jewish HospitalRBC Auto (Urine sed) [#/Area]1-2NONE, 1-2, 3-5 /HPF [facility] HospitalSpecific gravity (U) [Rel density]1.0251.005 - 1.035UnThe Jewish HospitalUrobilinogen (U) [Mass/Vol]mg/dLNINF - 2.0 mg/dLProMedica Defiance Regional HospitalWBC Auto (Urine sed) [#/Area]1-51-5, NONE /HPFUnThe Jewish HospitalYeast.budding Computer assisted (U) [#/Area]PRESENTAbnormalNONE /HPFUnThe Jewish HospitalUnThe Jewish HospitalAppearance (U)HazyNormalClearUnMercy Health St. Rita's Medical CenterComment on above:Performed By: #### 08647-9 #### JIMENA Mark ([id number]) [facility] ([facility] [place] [address] [place] [address] 35997Uxadfawps (U) [Mass/Vol]NegativeNormalNEGATIVEUc Medical CenterComment on above:Performed By: #### 01934-8 #### JIMENA Mark ([id number]) [facility] ([facility]) [address] [place] [address] 03476Loavo (U)YellowNormalStraw, [facility] Mansfield HospitalComment on above:Performed By: #### 67364-6 #### JIMENA Mark ([id number]) [facility] ([facility] [place] [address] [place] [address] 63137Gntuaprwhy cells.squamous Auto (Urine sed) [#/Area]1-9 (SPARSE) NormalReference range not established.Uc Medical CenterComment on above:Performed By: #### 03115-5 #### JIMEAN Mark ([id number]) [facility] ([facility]) [address] [place] [address] 16581Rlgorfx Auto test strip (U) [Mass/Vol]NegativeNormalNEGATIVE Uc Medical CenterComment on above:Performed By: #### 11059-5 #### JIMENA Mark ([id number]) [facility] ([facility]) [address] [place] [address] 33222Mfptfpj (U) [Mass/Vol]80 (2+)AbnormalNEGATIVEUc Medical CenterComment on above:Performed By: #### 24137-4 #### JIMENA Mark ([id number]) [facility] ([facility] [place] [address] [place] [address] 09331Pcryhhxui esterase Auto test strip Ql (U)NegativeNormalNEGATIVE Uc Medical CenterComment on above:Performed By: #### 83918-3 #### JIMENA Mark ([id number]) [facility] ([facility] [place] [address] [place] [address] 86183Bklui Auto (Urine sed) [#/Area]4+ /LPFNormalReference range not established.Uc Medical CenterComment on above: Performed By: #### 18241-6 #### JIMENA Mark ([id number]) [facility] ([facility] [place] [address] [place] [address] 38556Bngqzyf Auto test strip Ql (U)NegativeNormalNEGATIVEUc Medical CenterComment on above:Performed By: #### 61133-0 #### JIMENA Mark ([id number]) [facility] ([facility] [place] [address] [place] [address] 75515zL (U)9.0 [pH]Normal5.0, 5.5, 6.0, 6.5, 7.0, 7.5, 8.0Uc Medical CenterComment on above:Performed By: #### 76161-7 #### JIMENA Mark ([id number]) [facility] ([facility] [place] [address] [place] [address] 65988Zooutxq (U) [Mass/Vol]>=500 (3+)NormalNEGATIVEUnMercy Health St. Rita's Medical CenterComment on above:Performed By: #### 77593-7 #### JIMENA Mark ([id number]) [facility] ([facility] [place] [address] [place] [address] 20276VBA (U) [#/Vol]NegativeNormalNEGATIVEUnMercy Health St. Rita's Medical CenterComment on above:Performed By: #### 70770-2 #### JIMENA Mark ([id number]) [facility] ([facility] [place] [address] [place], [place] [address]RBC Auto (Urine sed) [#/Area]1-2NormalNONE, 1-2, 3-5UnMercy Health St. Rita's Medical CenterComment on above:Performed By: #### 94019-2 #### JIMENA Mark ([id number]) [facility] ([facility] [place] [address] [place], [place] [address]Specific gravity (U) [Rel density]1.588Cbjdgh4.005-1.035 Uc Medical CenterComment on above:Performed By: #### 68880-4 #### JIMENA Mark ([id number]) [facility] ([facility] [place] [address] [place], [place] [address]Urobilinogen (U) [Mass/Vol]mg/dLNormal<2.0UnMercy Health St. Rita's Medical CenterComment on above:Performed By: #### 09396-8 #### JIMENA Mark ([id number]) [facility] ([facility] [place] [address] [place], [place] [address]WBC Auto (Urine sed) [#/Area]1-7Atoyqe7-4, NONEUc Medical CenterComment on above:Performed By: #### 61797-7 #### JIMENA Mark ([id number]) [facility] ([facility] [place] [address] [place] [address] 05364Kibur.budding Computer assisted (U) [#/Area]PRESENTAbnormalNONE Uc Medical CenterComment on above:Performed By: #### 82541-0 #### JIMENA Mark ([id number]) [facility] ([facility] [place] [address] [place], [place] [address]XR CHEST 1 VIEWon 57-17-0196IA CHEST 1 VIEWInterpreted By: Mark Stanton, STUDY: XR CHEST 1 VIEW; 07/20/2023 4:05 pm INDICATION: Signs/Symptoms:cp. COMPARISON: None. ACCESSION NUMBER(S): [id number] ORDERING CLINICIAN: ABIODUN OCHOA FINDINGS: Heart is normal in size. There is no consolidation or pleural fluid. The mediastinum and bones are unremarkable. There are bilateral nipple shadows. COMPARISON OF FINDING: IMPRESSION: No acute cardiopulmonary disease. MACRO: none Signed by: Mark Stanton 07/20/2023 4:17 PM Dictation workstation: [id number] Valley Community HospitalXR Chest Single viewon 30-67-5376Bw acute cardiopulmonary disease. MACRO: none Signed by: Mark Stanton 07/20/2023 4:17 PM Dictation workstation: [address] MMODALInterpreted By: Mark Stanton, STUDY: XR CHEST 1 VIEW; 07/20/2023 4:05 pm INDICATION: Signs/Symptoms:cp. COMPARISON: None. ACCESSION NUMBER(S): [id number] ORDERING CLINICIAN: ABIODUN OCHOA FINDINGS: Heart is normal in size. There is no consolidation or pleural fluid. The mediastinum and bones are unremarkable. There are bilateral nipple shadows. COMPARISON OF FINDING: Mark Valdez MD - 07/20/2023 Interpreted By: Mark Stanton, STUDY: XR CHEST 1 VIEW; 07/20/2023 4:05 pm INDICATION: Signs/Symptoms:cp. COMPARISON: None. ACCESSION NUMBER(S): [id number] ORDERING CLINICIAN: ABIODUN OCHOA FINDINGS: Heart is normal in size. There is no consolidation or pleural fluid. The mediastinum and bones are unremarkable. There are bilateral nipple shadows. COMPARISON OF FINDING: IMPRESSION: No acute cardiopulmonary disease. MACRO: none Signed by: Mark Stanton 07/20/2023 4:17 PM Dictation workstation: [id number] [facility] Work Phone: Radiology Study observation (narrative)[facility] Work Phone: XR Chest Single viewOrdered By: Mark Stanton on 59-42-9268CmxsbyciquThe Jewish Hospital Work Phone: MRI HEAD/BRAIN WO/W CONTRon 84-85-9181[place] [address] Magnetic Resonance Report Signed Patient: INDU ST MR#: [id number] : 1995 Acct:[id number] Age/Sex: 27 / F ADM Date: 05/28/23 Loc: MRI Attending Dr: Uriel Meade D.O. Ordering Physician: Uriel Meade D.O. Date of Service: 05/28/23 Procedure(s): MR head/brain wo/w con Accession Number(s): [id number] cc: CAROLYNE COLLAZO ; Uriel Meade D.O. [place] [address] Patient Name: INDU ST MRN: [facility]:[id number] date: 1995 Sex: F Assigned Patient Location: MRI Current Patient Location: MRI Accession/Order Number: [id number] Exam Date: 05/28/2023 12:42 Report Date: 05/28/2023 14:22 At the request of: URIEL MEADE Procedure: MR head/brain wo/w con MR [...] left pituitary gland. Electronically authenticated by: ARMANI HER Date: 05/28/2023 14:22 Dictated By: Armani Her M.D. Signed By: 05/28/23 1424 DD/ 21 TD/TT: Carton Making Machine Operator:TERRYHRadiology, Radiologist, - 05/28/2023 [place] [address] Magnetic Resonance Report Signed Patient: INDU ST MR#: [id number] : 1995 Acct:[id number] Age/Sex: 27 / F ADM Date: 05/28/23 Loc: MRI Attending Dr: Uriel Meade D.O. Ordering Physician: Uriel Meade D.O. Date of Service: 05/28/23 Procedure(s): MR head/brain wo/w con Accession Number(s): [id number] cc: CAROLYNE COLLAZO ; Uriel Meade D.O. The [place] [id number] Patient Name: INDU ST MRN: [id number] date: 1995 Sex: F Assigned Patient Location: MRI Current Patient Location: MRI Accession/Order Number: [id number] Exam Date: 05/28/2023 12:42 Report Date: 05/28/2023 14:22 At the request of: URIEL MEADE Procedure: MR head/brain wo/w con MR [...] left pituitary gland. Electronically authenticated by: ARMANI HER Date: 05/28/2023 14:22 Dictated By: Armani Her M.D. Signed By: 05/28/231423 DD/ 21 TD/TT: Carton Making Machine Operator: [facility] HospitalRadiology Study observation (narrative)[facility] HospitalMRI HEAD/BRAIN WO/W CONTROrdered By: Radiologist Radiology on 23-34-1703[facility] Work Phone: tbh PROLACTINon 03-49-5701Eddobsnjydkbil and review of laboratory resultsAbnormalSac-Osage HospitalGaobhyyrmwZSPGQETTS967.0 ng/mLAbnormal4.8 - 33.4 ng/mLNOMS HealthcareComment on above:Performed at: [facility] Lab[address] [id number] Financing Analyst: Don Tolentino PhD, Phone: [phone] [facility]ISYH[facility]oldt [facility] Hospital CBC WITH AUTO DIFFon 92-00-8443WMKAZXWGB ABSOLUTE AUTO0.0NOSaint Luke's HospitalBasophils/100 WBC (Bld)0.4 %0.2 - 2.0 %[facility] Eosinophils/100 WBC (Bld)0.1 %Low0.9 - 7.0 %[facility] HospitalErythrocyte distribution width (RBC) [Ratio]13.5 %11.0 - 15.0 %[facility] HospitalHematocrit (Bld) [Volume fraction]37.2 %36.0 - 48.0 %[facility] HospitalHemoglobin (Bld) [Mass/Vol]12.0 g/dL12.0 - 16.0 g/dLNONH HealthcareIMMATURE GRANULOCYTES ABS AUTO 0.01NOSaint Luke's HospitalImmature granulocytes/100 WBC (Bld)0.1 %0.0 - 0.5 %[facility] HealthcareInterpretation and review of laboratory resultsAbnormalNONH Healthcare LYMPHOCYTES ABSOLUTE AUTO2.3NOSaint Luke's HospitalLymphocytes/100 WBC (Bld)33.3 %20.5 - 60.0 %[facility] Medical CenterH (RBC) [Entitic mass]28.0 pg26.7 - 34.0 pgNOSSM Health CareHC (RBC) [Mass/Vol]32.3 g/dL29.9 - 35.2 g/dLUniversity Health Truman Medical CenterV (RBC) [Entitic vol]86.7 fL81.0 - 99.0 fLSac-Osage HospitalMONOCYTES ABSOLUTE AUTO0.4NONH HealthcareMonocytes/100 WBC (Bld)5.1 %1.7 - 12.0 %[facility] HealthcareNEUTROPHILS ABSOLUTE AUTO4.2NOMS HealthcareNeutrophils/100 WBC (Bld)61.0 %43.0 - 75.0 %[facility] HealthcarePlatelet mean volume (Bld) [Entitic vol]9.9 fL9.5 - 13.5 fLSANPETE VALLEY HOSPITAL HealthcareTB EO #0.0NOMS [facility] CampusTB VIE055XGYJLiberty Hospital RBC4.29NOSaint Luke's HospitalTB WBC6.9NONH HealthcareCLINISYNCNTULSA ER & HOSPITAL – [facility]UL[facility] HealthcareALL THYROID STIM HORMONEon 46-69-7509COC Qn2.036 m[IU]/LNOMS HealthcareNo Panel Informationon 22-77-5320ADXXOKCWDZPJS HealthcareTB PREG QUANT HCGon 37-96-3422WSZ QUANTITATIVE<1mIU/mLNOMS HealthcareComment on above:5-50 0.2-1 WEEK 50-500 1-2 WEEKS 100-5,000 2-3 WEEKS 500-10,000 3-4 WEEKS 1,000-50,000 4-5 WEEKS 10,000-100,000 5-6 WEEKS 15,000-200,000 6-8 WEEKS 10,000-100,000 2-3 MONTHS US PELVIS W/ TRANSVAGINALon 99-13-9365Eor[address] [address] Ultrasound Report Signed Patient: INDU ST MR#: [id number] : 1995 Acct:[id number] Age/Sex: 27 / F ADM Date: 05/23/23 Loc: US Attending Dr: Uriel Meade D.O. Ordering Physician: Uriel Meade D.O. Date of Service: 05/23/23 Procedure(s): US pelvis w/ transvaginal Accession Number(s): [id number] cc: CAROLYNE COLLAZO ; Uriel Meade D.O. [place] [address] Patient Name: INDU ST MRN: [facility]:[id number] date: 1995 Sex: F Assigned Patient Location: US Current Patient Location: US Accession/Order Number: [id number] Exam Date: 05/23/2023 14:30 Report Date: 05/23/2023 15:37 At the request of: URIEL MEADE Procedure: US pelvis w/ transvaginal EXAMINATION: [...] collapsing functional cyst Electronically authenticated by: ROMY MCKEON Date: 05/23/2023 15:37 Dictated By: Romy Mckeon M.D. Signed By: 05/23/23 1539 DD/ 1537 TD/TT: Carton Making Machine Operator:CLIFadiology, Radiologist, - 05/23/2023 [place] [address] Ultrasound Report Signed Patient: INDU ST MR#: [id number] : 1995 Acct:[id number] Age/Sex: 27 / F ADM Date: 05/23/23 Loc: US Attending Dr: Uriel Meade D.O. Ordering Physician: Uriel Meade D.O. Date of Service: 05/23/23 Procedure(s): US pelvis w/ transvaginal Accession Number(s): [id number] cc: CAROLYNE COLLAZO ; Uriel Meade D.O. [place] [address] Patient Name: INDU ST MRN: [facility]:[id number] date: 1995 Sex: F Assigned Patient Location: US Current Patient Location: US Accession/Order Number: [id number] Exam Date: 05/23/2023 14:30 Report Date: 05/23/2023 15:37 At the request of: URIEL MEADE Procedure: US pelvis w/ transvaginal EXAMINATION: [...] collapsing functional cyst Electronically authenticated by: ROMY MCKEON Date: 05/23/2023 15:37 Dictated By: Romy Mckeon M.D. Signed By: 05/23/23 1539 DD/ 1537 TD/TT: Carton Making Machine Operator: NOMHiren HealthcareRadiology Study observation (narrative)NOMS HealthcareUS PELVIS W/ TRANSVAGINALOrdered By: Radiologist Radiology on 93-99-0073[employer] Work Phone: cytology Cervical or vaginal smear or scraping studyon 02-08-8657NOKD HealthcareXR HYSTEROSALPINGOGRAMon 50-42-7231KR HYSTEROSALPINGOGRAM* * *Final Report* * * DATE OF EXAM: Jan 20 [...] nondilated tubes. No spillage. IMPRESSION: Please see GEOPHYSICS SCIENTIST report for assessment of real-time findings. Carton Making Machine Operator: ANTONIETA Transcribe Date/Time: Jan 20 2021 1:37P Dictated by : DAYANNA LEROY MD This examination was interpreted and the report reviewed and electronically signed by: DAYANNA LEROY MD on Jan 20 2021 1:45PM EST [id number]_IDCSIACNNormalAvon HospitalPREGNANCY URon 14-36-0799KVHANHVIF, QUALNegativeNormalNEGATIVEThe [facility] HospitalComment on above:Performed By: #### PREGU #### [facility] [address] [place] [address] Juany KarenCovid-19 PCR (CVDTBH)on 43-28-2715Izhse-19 PCRDETECTEDAbnormalNOT DETECTEDThe [facility] HospitalComment on above:Result Comment: This test is not yet approved or cleared by the [place] FDA. When there are no FDA-approved or cleared tests available, and other criteria are met, FDA can make tests available under an emergency access mechanism called an Emergency Use Authorization (EUA). The EUA for this test is supported by the [place] of Health and Human Service's (HHS's) declaration [...] which the test may no longer be used).Performed By: #### CVDTBH #### [facility] [address] [id number] Juany AparicioSONY [facility] Regional Medical CenterComment on above: Result Comment: This test is not yet approved or cleared by the [place] FDA. When there are no FDA-approved or cleared tests available, and other criteria are met, FDA can make tests available under an emergency access mechanism called an Emergency Use Authorization (EUA). The EUA for this test is supported by the [place] of Health and Human Service?s (HHS?s) declaration [...] the context of a patients recent exposures andthe presence of clinical signs and symptoms consistent with SARS-CoV-2.Performed By: #### CVDTBH #### [facility] [address] [id number] Juany Mccarthy Vital Signs Date TimeVital SignValuePerforming GluewafznGlmfhrsk67-77-7399 08:51-0400Body mass index (BMI) [Ratio]22.13 kg/m2Dary GOMEZ Work Phone: [facility] HospitalHkdvdrhwqp17-16-1791 08:51-0400Body edbxse44.2 kg Dary GOMEZ Work Phone: [facility] HospitalQbcorsmqel44-72-6388 08:51-0400Diastolic blood mm[Hg]Dary GOMEZ Work Phone: [phone]age HospitalDdjbzgqgmk37-73-3010 08:51-0400Systolic blood fwinaaqu419 mm[Hg]Dary GOMEZ Work Phone: [facility] HospitalUmvuggcuhu81-05-5761 09:36-0400Body mass index (BMI) [Ratio]22.08 kg/a4Nyrgj Halina DO Work Phone: [phone] [place], [place] [address]Fhniheuxhh75-20-2321 09:36-0400Body wtqycl89.05 kgCorey Halina DO Work Phone: 1(105)[facility] [place], [place] [address]Ypdjxrpswf64-21-9311 09:36-0400Diastolic blood prxjsopx78 mm[Hg]Uriel Halina DO Work Phone: 1(095)[facility] [place], [place] [address]Aamjfuvejv60-97-5946 09:36-0400Systolic blood xuzdtmre912 mm[Hg]Uriel Halina DO Work Phone: 1(277)[facility] [place], [place] [address]Lxaptllcko10-89-7184 08:57-0400Body mass index (BMI) [Ratio]20.98 kg/k3HjiuqblzDolores Caldwell SIGN HANGER Work Phone: 1(239)[facility] [place], [place] [address]Wpakxymzjf87-57-7405 08:57-0400Body yjxiln91.97 kgDolores Caldwell SIGN HANGER Work Phone: 1(318)[facility] [place], [place] [address]Fpjhvhuknr44-61-4827 08:57-0400Diastolic blood szwbpkwi55 mm[Hg]Dolores Caldwell SIGN HANGER Work Phone: 1(298)[facility] [place], [place] [address]Kzbpzvvhms20-37-8683 08:57-0400Systolic blood mm[Hg]Dolores Caldwell SIGN HANGER Work Phone: [phone])[facility] [place], [place] [address]Wspggcozrc46-09-3322 08:38-0400Body mass index (BMI) [Ratio]21.43 kg/g6Tleja Halina DO Work Phone: [phone])[facility] [place], [place] [address]Cmovpgsnht05-46-0856 08:38-0400Body yrgbcx68.24 kgCorey Halina DO Work Phone: 1(757)[facility] [place], [place] [address]Zbybvyhwqx23-85-8298 08:38-0400Diastolic blood ctdkglky99 mm[Hg]Uriel Halina DO Work Phone: 1(950)[facility] [place], [place] [address]Iiikmzlnxu44-54-0236 08:38-0400Systolic blood ktjaoaon958 mm[Hg]Uriel Halina DO Work Phone: [phone] [place], [place] 4626008-19-2025 09:02-0400Body mass index (BMI) [Ratio]20.47 kg/y7Geqdt Halina DO Work Phone: 1(658)[facility] [place], [place] [address]Olpmgrddps44-88-9487 09:02-0400Body owjswa27.52 kgCorey Halina DO Work Phone: 1(211)[facility] [place], [place] [address]Glednbesvd17-93-8841 09:02-0400Diastolic blood elhaxika48 mm[Hg]Uriel Halina DO Work Phone: 1(419)[facility] [place], [place] [address]Tmipjjwphi76-54-6200 09:02-0400Systolic blood ognxfscc559 mm[Hg]Uriel Halina DO Work Phone: [phone] [address] [place], [place] 4626007-24-2025 08:47-0400Body mass index (BMI) [Ratio]19.69 kg/s3Usyjc Halina DO Work Phone: [phone] [place], [place] 4626007-24-2025 08:47-0400Body .34 kgCorey Halina DO Work Phone: [phone])[address] [place], [place] 4626007-24-2025 08:47-0400Diastolic blood laeopsdj93 mm[Hg]Uriel Halina DO Work Phone: [phone])[address] [place], [place] 4626007-24-2025 08:47-0400Systolic blood mbelyuaq428 mm[Hg]Uriel Halina DO Work Phone: [phone])[address] [place], [place] 4626007-09-2025 08:06-0400Body mass index (BMI) [Ratio]19.85 kg/g3BbskiMaria T Lambert RD Work Phone: [phone])[address] [place], [place] 4408707-09-2025 08:06-0400Body mowhwc02.[address] Work Phone: 1(419)[address] [place], [place] 4408707-01-2025 08:02-0400Body foplfs303.6 cmMario Alberto Ortiz MD Work Phone: [phone])[address] [place], [place] 4408707-01-2025 08:02-0400Body mass index (BMI) [Ratio]20.14 kg/m8QwncmagpMario Alberto Ortiz MD Work Phone: 1(671)[address] [place], [place] 4408707-01-2025 08:02-0400Body doqqvh81.61 kgMario Alberto Ortiz MD Work Phone: [phone])[address] [place], [place] 4408707-01-2025 08:02-0400Diastolic blood sryswryw70 mm[Hg]Mario Alberto Ortiz MD Work Phone: [phone])[address] [place], [place] 4408707-01-2025 08:02-0400Heart rate 87 /minMario Alberto Ortiz MD Work Phone: [phone] [place], [place] 4408707-01-2025 08:02-0400Systolic blood kuviiaye598 mm[Hg]Mario Alberto Ortiz MD Work Phone: [phone])[address] [place], [place] 4408706-24-2025 09:49-0400Body mass index (BMI) [Ratio]19.41 kg/g0Yvyxf Halina DO Work Phone: [facility]Ikertryuhc73-20-7764 09:49-0400Body .55 kgCorey Halina DO Work Phone: [facility] HospitalBhuqufcsgy64-37-2122 09:49-0400Diastolic blood kqsmpbbu87 mm[Hg]Uriel Halina DO Work Phone: [facility] HospitalJjcempegtb04-82-8575 09:49-0400Systolic blood krgqcakk398 mm[Hg]Uriel Halina DO Work Phone: [facility] HospitalQbztfoxhax93-06-7324 15:53-0400Body temperature 98.4 [degF]Mayra Dobson MD Work Phone: [facility]06-13-2025 15:53-0400 Diastolic blood hxfemffd95 mm[Hg]Mayra Dobson MD Work Phone: [facility]06-13-2025 15:53-0400 Heart rate77 /Grace Dobson MD Work Phone: [facility]06-13-2025 15:53-0400 Respiratory rate18 /Grace Dobson MD Work Phone: [facility]06-13-2025 15:53-0400 SaO2% (BldA) [Mass fraction]99 %Mayra Dobson MD Work Phone: [phone]-[facility]06-13-2025 15:53-0400 Systolic blood fogxwjed514 mm[Hg]Mayra Dobson MD Work Phone: [phone]06-12-2025 23:24-0400 Body gyqlqsfohlc55Xanpjmvn Brenner MD Work Phone: [phone] [place], [place] 2302306-12-2025 23:23-0400 Body btfqweqiovs11.0 degrees CelsiusEast Ohio Regional HospitalComment on above:Performed By: #### [id number] #### CARI Mark ([id number]) [facility] ([facility]) [address] [place], [place] [address]-12-2025 22:08-0400Body stemiw319.6 cmMayra Dobson MD Work Phone: [phone])937-[facility]06-12-2025 22:08-0400 Body mass index (BMI) [Ratio]18.72 kg/d3WwtkgerbMayra Dobson MD Work Phone: 1(630)392-[facility]06-12-2025 22:08-0400 Body .62 kgMayra Dobson MD Work Phone: 1(645)999-[facility]06-11-2025 11:38-0400 Diastolic blood hxfgybno65 mm[Hg]Milan Lerner DO Work Phone: [facility]06-11-2025 11:38-0400 Heart rate84 /minCamgerson Lerner DO Work Phone: [facility]06-11-2025 11:38-0400 Respiratory rate16 /minCamgerson Lerner DO Work Phone: [facility]06-11-2025 11:38-0400 SaO2% (BldA) [Mass fraction]100 %Milan Lerner DO Work Phone: [facility]06-11-2025 11:38-0400 Systolic blood orxcenjf092 mm[Hg]Milan Lerner DO Work Phone: 1([phone] [place], [place] 4932606-11-2025 09:25-0400 Body baqkxs929.6 cmCman Lerner DO Work Phone: 1([phone] [place], [place] 4932606-11-2025 09:25-0400 Body mass index (BMI) [Ratio]18.72 kg/l9PkpetguMilan Penalozaasters DO Work Phone: [facility]06-11-2025 09:25-0400 Body pjtbmyhwcjd17.3 [degF]Milan Lerner DO Work Phone: [phone]06-11-2025 09:25-0400 Body .62 kgCamgerson Lerner DO Work Phone: [facility]05-28-2025 14:49-0400 Body mass index (BMI) [Ratio]19.17 kg/i7Qmwzp Halina DO Work Phone: [phone] [place], [place] [address]Gmqhxmuftx98-56-8171 14:49-0400Body jhstfu04.89 kgCorey Halina DO Work Phone: 1(615)744-[address] [place], [place] [address]Xglabohoua38-78-0239 14:49-0400Diastolic blood vkeszzmm01 mm[Hg]Uriel Halina DO Work Phone: 1(515)134-[address] [place], [place] [address]Phuquzrxdo73-24-1720 14:49-0400Systolic blood kyuhxkop117 mm[Hg]Uriel Halina DO Work Phone: 1(756)624-[facility] HospitalMcfibhxfvf83-26-9968 14:54-0400Body mass index (BMI) [Ratio]18.4 kg/r9Zenah Halina DO Work Phone: 1(996)791-[facility] HospitalWfohswtwnn53-45-1322 14:54-0400Body rkotzs12.71 kgCorey Halina DO Work Phone: 1(419)483-[address] [place], [place] [address]Uxgwtsvioi94-10-8895 14:54-0400Diastolic blood dhrhiupp46 mm[Hg]Uriel Halina DO Work Phone: [facility] HospitalEmcwgcftqs56-78-2514 14:54-0400Systolic blood fkstxavi487 mm[Hg]Uriel Halina DO Work Phone: [facility] HospitalCaldtzmkuk57-49-4289 11:27-0400Hourly Rounding Ronobir KAI [address] [place], [place] 3348404-20-2025 11:27-0400 Promise to ReturnRonobir KAI [address] [place], [place] 4313804-20-2025 10:00-0400 Hourly RoundingRonobir KAI [address] [place], [place] 4313804-20-2025 10:00-0400 Promise to ReturnRonobir KAI [address]04-20-2025 09:20-0400 Hourly RoundingRonobir KAI [address] [place], [place] 3348404-20-2025 09:20-0400 Promise to ReturnRonobir KAI [address] [place], [place] 3348404-20-2025 07:44-0400Heart rate75 /minRonobir KAI [address] [place], [place] 3348404-20-2025 07:44-7494QgH8% (BldA) [Mass fraction]99 %Ronobir KAI [address] [place], [place] 3348404-20-2025 07:43-0400 Diastolic blood pnaetbxe96 mm[Hg]Ronobir KAI [address] [place], [place] 3348404-20-2025 07:43-0400Mean blood xvrvjxxu16 mm[Hg]Ronobir KAI [address] [place], [place] 3348404-20-2025 07:43-0400 Systolic blood ipiwifzr808 mm[Hg]Ronobir KAI [facility]04-20-2025 07:43-0400Body pjtplfzupfd53.42 [degF]Ronobir KAI [facility]04-19-2025 19:58-0400Heart rate79 /minRonobir KAI [facility]04-19-2025 19:58-0940TsG0% (BldA) [Mass fraction]97 %Ronobir KAI [facility]04-19-2025 19:57-0400 Diastolic blood yuprfhld34 mm[Hg]Ronobir KAI [facility]04-19-2025 19:57-0400Mean blood obuuizqv75 mm[Hg]Ronobir KAI [facility]04-19-2025 19:57-0400 Systolic blood ebrybrrd426 mm[Hg]Ronobir KAI [facility]04-19-2025 19:56-0400Body byzkhugoltu98.6 [degF]Ronobir KAI [facility]04-19-2025 19:00-0400 Respiratory rate18 /minRonobir KAI [address] [place], [place] 3348404-19-2025 17:19-0400Heart rate80 /minRonobir KAI [facility]04-19-2025 17:19-4468KpQ0% (BldA) [Mass fraction]97 %Ronobir KAI [facility]04-19-2025 17:17-0400Blood Pressure LocationRonobir KAI [address]04-19-2025 17:17-0400 Diastolic blood mm[Hg]Ronobir KAI [address] [place], [place] 3348404-19-2025 17:17-0400Mean blood trdtoojh80 mm[Hg]Ronobir KAI [address] [place], [place] 4313804-19-2025 17:17-0400 Systolic blood iffwrikl525 mm[Hg]Ronobir KAI [address] [place], [place] 4313804-19-2025 17:17-0400Body xwojcdvwvmt03.78 [degF]Ronobir KAI [address] [place], [place] 3348404-19-2025 00:02-0400Body fbqbkienqer58.6 [degF]Ronobir KAI [address] [place], [place] 4313804-19-2025 00:02-0400 Respiratory rate16 /minRonobir KAI [address] [place], [place] 3348404-18-2025 16:30-0400 Respiratory rate18 /minRonobir KAI [address] [place], [place] 3348404-18-2025 06:00-0400Mean blood mm[Hg]Ronobir KAI [address] [place], [place] 3348404-18-2025 02:49-0400Body otluqqwvmlu37.24 [degF]Ronobir KAI [address] [place], [place] 3348404-18-2025 02:49-0400Mean blood ydpeccsl79 mm[Hg]Ronobir KAI [address] [place], [place] 3348404-17-2025 22:25-0400Heart rate81 /minRonobir KAI [address] [place], [place] 3348404-17-2025 18:14-0400Mean blood txgubtcu60 mm[Hg]Ronobir KAI [facility]04-17-2025 12:11-0400 Respiratory rate18 /minRonobir KAI [facility]04-17-2025 12:04-0400 Respiratory rate24 /minRonobir KAI [facility]04-17-2025 11:32-0400Heart rate77 /minRonobir KAI [facility]04-17-2025 10:48-0400Heart rate81 /minRonobir KAI [facility]02-10-2025 14:48-0500Body .6 Satish Collazo MD Work Phone: [facility] HospitalBrnticslwx17-28-7610 14:48-0500Body mass index (BMI) [Ratio]17.98 kg/i5SbjhdCarolyne Collazo MD Work Phone: [facility] HospitalSbubnjotjl39-38-0618 14:48-0500Body temperature 98.4 [degF]Carolyne Collazo MD Work Phone: [facility] HospitalAsmypxofuf90-19-6525 14:48-0500Body etwpdv02.53 kgCarolyne Collazo MD Work Phone: [facility] HospitalXvlfyxmyrv40-89-0317 14:48-0500Diastolic blood mm[Hg]Carolyne Collazo MD Work Phone: [facility] HospitalPnafzbqsyf72-06-5903 14:48-0500Heart rate78 /min Carolyne Collazo MD Work Phone: [facility] HospitalZssutqmqyi61-40-8958 14:48-3826JeU0% (BldA) [Mass fraction]98 %Carolyne Collazo MD Work Phone: [facility] HospitalBzmlepwqhx69-51-9596 14:48-0500Systolic blood iekatjdj414 mm[Hg]Carolyne Collazo MD Work Phone: [facility] HospitalArurdyuxiq04-18-2895 08:43-0400Body kavzzm290.6 cmCorevikram Meade DO Work Phone: [facility] HospitalUhlxtanuhs60-54-4092 08:43-0400Body mass index (BMI) [Ratio]17.59 kg/t5Jhkbdvikram Meade DO Work Phone: [facility] HospitalCujmfcyvqj76-07-2029 08:43-0400Body xsbabe43.44 kgCorevikram Meade DO Work Phone: [facility] HospitalXagswpovjr06-48-1973 08:43-0400Diastolic blood mm[Hg]Uriel Meade DO Work Phone: [facility] HospitalBtvxgooedh99-91-7135 08:43-0400Systolic blood mm[Hg]Uriel Meade DO Work Phone: [facility] HospitalFofhzougyt24-06-4610 10:05-0400Blood Pressure LocationClifforddarlyn Josehilario [facility]08-12-2024 10:05-0400 Diastolic blood mm[Hg]Payamjuwan Knutson [facility]08-12-2024 10:05-0400Heart rate66 /minClifforddarlyn Josehilario [facility]08-12-2024 10:05-0400Mean blood jddoncjm48 mm[Hg]Alex Knutson [facility]08-12-2024 10:05-0400 Respiratory rate19 /minClifforddarlyn Josehilario [facility]08-12-2024 10:05-5080CfB4% (BldA) [Mass fraction]97 %Alex Cliffordhelena [facility]08-12-2024 10:05-0400 Systolic blood ozxvmhwa342 mm[Hg]Mohamad Mouchli [facility]08-12-2024 09:55-0400Blood Pressure LocationMohamad Mouchli [facility]08-12-2024 09:55-0400 Diastolic blood qkaetbnz63 mm[Hg]Mohamad Mouchli [address] [place], [place] 6336908-12-2024 09:55-0400Heart rate57 /minMohamad Mouchli [address] [place], [place] 6336908-12-2024 09:55-0400Mean blood hsmzvnju67 mm[Hg]Mohamad Mouchli [address] [place], [place] 6336908-12-2024 09:55-0400 Respiratory rate19 /minMohamad Mouchli [address] [place], [place] 6336908-12-2024 09:55-8486SsS6% (BldA) [Mass fraction]100 %Mohamad Mouchli [address] [place], [place] 6336908-12-2024 09:55-0400 Systolic blood oqsynley170 mm[Hg]Mohamad Mouchli [address] [place], [place] 6336908-12-2024 09:50-0400Blood Pressure LocationMohamad Mouchli [address] [place], [place] 6336908-12-2024 09:50-0400 Diastolic blood lpawmeth60 mm[Hg]Mohamad Mouchli [address] [place], [place] 6336908-12-2024 09:50-0400Heart rate90 /minMohamad Mouchli [address] [place], [place] 6336908-12-2024 09:50-0400Mean blood godaoleh79 mm[Hg]Mohamad Mouchli [address] [place], [place] 6336908-12-2024 09:50-0400 Respiratory rate13 /minMohamad Mouchli [address] [place], [place] 6336908-12-2024 09:50-2634RaU6% (BldA) [Mass fraction]100 %Mohamad Mouchli [address] [place], [place] 6336908-12-2024 09:50-0400 Systolic blood twsptkva632 mm[Hg]Mohamad Mouchli [address] [place], [place] 6336908-12-2024 09:41-0400Body ktuzzticssv49.06 [degF]Mohamad Mouchli [address]08-12-2024 09:30-0400 Respiratory rate10 /minMohamad Mouchli [address] [place], [place] 6336908-12-2024 09:25-0400 Respiratory rate10 /minMohamad Mouchli [address] [place], [place] 6336908-12-2024 09:24-0400 Respiratory rate10 /minMohamad Mouchli [address] [place], [place] 6336908-12-2024 07:13-0400Body .42 [degF]Payamamad Mouchli [address] [place], [place] 6336907-11-2024 14:52-0400Blood Pressure LocationMohamad Mouchli 203-1600Xitlcm-Aezuc[address] [place], [place] 7626507-11-2024 14:52-0400Diastolic blood hnzxrbma77 mm[Hg]Mohamad Mouchli 186-3092Qlqbyo-Fsazl[address] [place], [place] 7626507-11-2024 14:52-0400Heart rate78 /minMohamad Mouchli 295-8677Sbvwul-Xxnay[address] [place], [place] 7626507-11-2024 14:52-0400Respiratory rate16 /minMohamad Zenia 826-9005Dxwuum-InhdnHolmes County [facility]07-11-2024 14:52-0400Systolic blood mm[Hg]Alex Knutson 747-7247Oiipzs-XwloiHolmes County [facility]05-17-2024 18:58-0400Body ahklcvogpug72.49 [degF]Gwen Danielson MD Work Phone: [phone] [place], [place] 3986105-17-2024 18:58-0400 Diastolic blood vefmpvpq06 mm[Hg]Gwen Danielson MD Work Phone: [phone] [place], [place] 3986105-17-2024 18:58-0400 Heart rate52 /Jacqueline Danielson MD Work Phone: [phone] [place], [place] 3986105-17-2024 18:58-0400 Respiratory rate18 /Jacqueline Danielson MD Work Phone: [phone] [place], [place] 9679005-17-2024 18:58-0400 SaO2% (BldA) [Mass fraction]98 %Gwen Danielson MD Work Phone: [phone]96[facility]05-17-2024 18:58-0400 Systolic blood mm[Hg]Gwen Danielson MD Work Phone: [phone]06[facility]05-17-2024 13:40-0400 Body .6 cmJoleonardo Danielson MD Work Phone: [phone]88[facility]05-17-2024 13:40-0400 Body mass index (BMI) [Ratio]19.05 kg/p5TexyjGwen Danielson MD Work Phone: [phone]05-17-2024 13:40-0400 Body .52 kgJoleonardo Danielson MD Work Phone: [phone] Encounters Encounter DateEncounter TypeCare ProviderFacilityStart: 01-12-2025 End: 25-23-8622bmbkkwandwCiaky R FAZIOFacility:FTMCStart: 01-08-2025 End: 53-44-6415esmzwjdltuPdomj R FAZIOFacility:FTMCStart: 01-05-2025 End: 21-15-2155nkvnqnbfvpPfgsy R FAZIOFacility:FTMCStart: 01-01-2025 End: 41-75-9470gqfzisbuoaKipwu R FAZIOFacility:FTMCStart: 12-31-2024 End: 54-42-3268Ugqoakmv flow sheetDary Wilhelm PA Work Phone: [facility]BGYNComment on above:Third trimester ([facility]); 33 weeks gestation of ([facility])Start: 12-31-2024 End: 70-91-2412llwauswlxqBPY RAMEYNot AvailableStart: 12-29-2024 End: 39-01-0113ouscjqoysfFjhgp R FAZIOFacility:FTMCStart: 12-25-2024 End: 08-69-7312qwmnoohpouGkjws R FAZIOFacility:FTMCStart: 12-22-2024 End: 93-41-8585bnumwudytsAbbfb R FAZIOFacility:FTMCStart: 12-18-2024 End: 72-59-9455guxkxlzjmpPfkoo R FAZIOFacility:FTMCStart: 12-16-2024 End: 95-49-6608Rzjxeg flowsheetCorey Halina DO Work Phone: [facility]BGYNStart: 12-16-2024 End: 81-84-6735Jtyfuw flowsheetCorey Halina DO Work Phone: [facility] [facility]BGYNStart: 12-16-2024 End: 96-47-0363Mbycavpi flow sheetCorey Halina DO Work Phone: [facility] [place] [facility]BGYNComment on above:Third trimester ([facility]); 31 weeks gestation of ([facility]); Encounter for in vitro fertilization; Hemorrhoids, unspecified hemorrhoid typeStart: 12-16-2024 End: 15-90-3731nvasljznqlIENLV FAZIONot AvailableStart: 12-15-2024 End: 79-51-8219Kufwvmqke Carol Nolen RNMaternal- Medicine at [facility]lower Hospitaltart: 12-15-2024 End: 47-62-8945cxqussofidWorhf R FAZIOFacility:FTMCStart: 12-11-2024 End: 06-28-5375lbtudzcbgkEdnaq R FAZIOFacility:FTMCStart: 12-09-2024 End: 36-28-9994Bshxca outpatient visit 25 minutesMario Alberto Ortiz MD Work Phone: [phone]-Jbeue Medicine at [facility] Comment on above:30 weeks gestation of (Primary Dx)Start: 12-09-2024 End: 63-52-7158orpzbriyjbFABEOWQA P DOCHEVAProMedica [facility] Health Troytart: 12-08-2024 End: 62-75-3813ompqrkfzfhIawyv D KastenFacility:FTMCStart: 12-05-2024 End: 60-89-5598UbfyovCrgeqppm P Docheva MD Work Phone: [phone]-Ajisl [facility] at [facility] Comment on above:16 weeks gestation of ; Hyperemesis of pregnancyStart: 12-04-2024 End: 09-84-9880IagjagRonald Godfrey [facility] Certified Nurse [employer] U[employer] Supervisor - [facility] ClintonComment on above: renal anomaly, single gestation (Primary Dx); Marijuana use during ; resulting from in vitro fertilization in second trimester; 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Start: 12-02-2024 End: 98-69-9273Juvuxefrieda Caldwell NP Work Phone: [facility]BGYNStart: 12-02-2024 End: 05-28-5698Surzdscheryl Caldwell SIGN HANGER Work Phone: [facility]BGYNStart: 12-02-2024 End: 85-90-8890Tdewkieo flow sheetDolores Caldwell SIGN HANGER Work Phone: [facility] [place] [facility]BGYNComment on above:Anemia, unspecified type (Primary Dx); Third trimester ([facility]); 29 weeks gestation of ([facility]); Bipolar 1 disorder ([facility]); PTSD (post-traumatic stress disorder)Start: 12-02-2024 End: 86-85-8190fiimrhcvenIQVSCQHV EBERLYNot AvailableStart: 12-01-2024 End: 00-90-7889weaqrswzhcUardt R FAZIOFacility:FTMCStart: 83-89-7290tejyybfifb Uriel R FAZIOFacility:FTMCStart: 11-24-2024 End: 18-54-9643iarqfibckkOmowl R FAZIOFacility:FTMCStart: 11-18-2024 End: 41-79-6978Fcppzx flowsheetCorey Halina DO Work Phone: [facility]BGYNStart: 11-18-2024 End: 41-82-2640Whrppq flowsheetCorey Halina DO Work Phone: [facility]BGYNStart: 11-18-2024 End: 28-69-6734Iremihna flow sheetCorey Halina DO Work Phone: [facility] [facility]BGYNComment on above:27 weeks gestation of ([facility]); Second trimester ([facility]); Hyperemesis of ([facility]); resulting from in vitro fertilization in second trimester ([facility]); Breech presentation, single or unspecified fetus ([facility])Start: 11-18-2024 End: 89-04-9091vkejixvqrxXHTZH FAZIONot AvailableStart: 11-17-2024 End: 14-40-4767uvkaeeqslsNgatx R FAZIOFacility:FTMCStart: 11-07-2024 End: 14-14-0755Jlrdxr outpatient visit 25 minutesMario Alberto Ortiz MD Work Phone: [phone]-Hupny Medicine at [facility] Comment on above:16 weeks gestation of ; Hyperemesis of pregnancyStart: 11-07-2024 End: 63-42-0223KdhfbaRonald Maya RNMaternal- Medicine at [facility] HospitalComment on above:Hyperemesis of (Primary Dx); renal anomaly, single gestation; Marijuana use during ; 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; Nausea and vomiting during ; Poor weight gain of , second trimester; In vitro fertilization; 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, antepartumStart: 11-06-2024 End: 51-08-2155uglclypqvlHRUADUMSaint Mary's [facility] Ambulatory PPGStart: 10-21-2024 End: 39-36-7117Erznne flowsheetCorey Halina DO Work Phone: [facility] OBGYNStart: 10-21-2024 End: 23-69-9545Gbxvys flowsheetCorey Halina DO Work Phone: [facility]BGYNStart: 10-21-2024 End: 23-26-9524Rptisetq flow sheetCorey Halina DO Work Phone: [facility] [place] OBGYNComment on above:23 weeks gestation of ([facility]); Second trimester ([facility]); Hyperemesis of ([facility]); resulting from in vitro fertilization in second trimester ([facility]); Diabetes mellitus screeningStart: 10-21-2024 End: 99-10-7119uxjxsryvcjRVZAT FAZIONot AvailableStart: 10-07-2024 End: 99-49-6515Ommeiq-up encounterMario Alberto Ortiz MD Work Phone: [phone]-Endfd Medicine at [facility] Comment on above:MR abdomen without contrastStart: 10-03-2024 End: 37-32-4496vzhzqgzmydVHOOETJV P DOCHEVAMercy Health St[facility] HospitalStart: 10-02-2024 End: 63-34-7335Ewebod outpatient visit 15 minutesKrupa Jones MD Work Phone: [phone]-Gtqyv Medicine at [facility] Comment on above:Hyperemesis of (Primary Dx); renal anomaly, single gestation; Marijuana use during ; 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Start: 10-02-2024 End: 81-44-9879xiuumcgzuuDQQC E SIMMONDSPIberia Medical Centeraria [facility] Troytart: 10-02-2024 End: 44-22-1220Qlozusdlf encounterBrowendy Maya RNMaternal- Medicine at [facility] Hospitaltart: 10-02-2024 End: 85-99-6588fpzkcfjpnoWHQMP [facility] PPGStart: 09-25-2024 End: 66-44-7990Mhfiqs flowsheetCorey Halina DO Work Phone: noms BCP OBStart: 09-25-2024 End: 99-94-1493Esgcqs flowsheetCorey Halina DO Work Phone: NODY BCP OBStart: 09-25-2024 End: 06-21-1536Askzpbcr flow sheetCorey Halina DO Work Phone: noms BCP OBComment on above:Second trimester ([facility]); 20 weeks gestation of ([facility])Start: 09-25-2024 End: 20-83-7971zhwyipryqaBJZOI FAZIONot AvailableStart: 09-17-2024 End: 55-07-3161UucupgRonald Ortiz MD Work Phone: [phone]-Dsrvk Medicine at [facility] Comment on above:Hyperemesis of (Primary Dx); Gastroesophageal reflux disease, unspecified whether esophagitis presentStart: 09-15-2024 End: 42-56-3672bzjimrplloGgkMelisa Costa MD Work Phone: [phone]-Djwhb Medicine at [facility] Comment on above:Nausea and vomiting during [O21.9] (Primary Dx)Start: 09-10-2024 End: 35-69-2143shzbnodymzKUTRY [facility] Centertart: 09-09-2024 End: 06-94-7924Zszjcb-up Ignacia Costa MD Work Phone: [phone]-Mrduf Medicine at [facility] Comment on above:Comprehensive metabolic panel, Magnesium, CBC without diff, Additional followed-up results: 3Start: 09-04-2024 End: 01-95-7573kyhbvidnssEVEUJDKJ P DOCHEVAMercy Health 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; Bipolar disease 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 trimester ([facility] Anxiety during pregnancyStart: 09-02-2024 End: 74-33-0633Kjlsub OnlyLexi Maya RNMaternal- Medicine at [facility] HospitalComment on above:Hyperemesis of (Primary Dx); Poor weight gain of , second trimester; In vitro fertilization; 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, antepartum; Abnormal ultrasound of kidneyStart: 08-26-2024 End: 72-56-8121Kofqez flowsheetCorey Halina DO Work Phone: noms BCP OBStart: 08-26-2024 End: 33-14-5949Cguoho flowsheetCorey Halina DO Work Phone: noms BCP OBStart: 08-26-2024 End: 84-43-3296Qyoxdlxek Result EncounterGeneric External Data ProviderNOMS External Department UnsolicitedStart: 08-26-2024 End: 38-80-1776Qifimjyq Result EncounterCorey Halina DO Work Phone: noms External Department UnsolicitedStart: 08-26-2024 End: 26-05-9142Beodwxt encounter procedureCorey Halina DO Work Phone: NOWR HealthcareStart: 08-26-2024 End: 31-45-0962Dbzchecp preventive med est patient 18-39 yrsCorey Halina DO Work Phone: NOVF BCP OBComment on above:Well woman exam with routine gynecological exam; STD exposure; Second trimester ([facility]); 15 weeks gestation of ([facility]); Screening, , for anatomic survey ([facility])Start: 08-26-2024 End: 07-29-1892gwyufqkvzoJVUXC FAZIONot AvailableStart: 08-18-2024 End: 92-18-5134Plpmn Darshan Ortiz MD Work Phone: [phone]-Iddya Medicine at [facility] Start: 08-15-2024 End: 36-33-8881Lptfjonwzo and management of inpatientJUSTIN A [facility] Hospitaltart: 08-14-2024 End: 33-61-2541Xjtzvrjfk department patient visitMAYRA Ziegler [facility] Memorialtart: 08-14-2024 End: 10-72-7882Dfpwaezunq and management of inpatientMayra Dobson MD Work Phone: [facility] 4Comment on above:15 weeks gestation of ([facility]) (Primary Dx); Nausea and vomiting, unspecified vomiting type; Chest pain, unspecified typeStart: 08-14-2024 End: 60-69-8738wsqdudkrrcFojpx D KastenFacility:FTMCStart: 48-46-7271Sogjcennn department patient Payton GardunoFacility:FTMCStart: 08-14-2024 End: 73-39-8481JoodzwjlzcqCniss D Kasten [facility] Start: 08-13-2024 End: 89-24-1463Pwptrnvigx hospital visit by physicianSam 2e Cr Nonv1 Ecg [facility] CenterComment on above:ArrivedStart: 08-13-2024 End: 86-00-9925Gldauzyfc department patient visitCAMEROBirgit [facility] Hospitaltart: 08-13-2024 End: 65-77-6091Ypsxiuqag department patient visitCamgerson [facility] DO Work Phone: [facility] Emergency MedicineComment on above:Nausea and vomiting, unspecified vomiting type (Primary Dx)Start: 07-30-2024 End: 99-77-4718Ppsusw flowsheetCorey Halina DO Work Phone: NOMS BCP OBStart: 07-30-2024 End: 96-52-1772Dkdwhz flowsheetCorey Halina DO Work Phone: noms BCP OBStart: 07-30-2024 End: 58-75-1557Uisytgxm flow sheetCorey Halina DO Work Phone: noms BCP OBComment on above:First trimester ; 11 weeks gestation of ; Nausea and vomiting, unspecified vomiting type; Hyperemesis of ; Encounter for in vitro fertilization; Anxiety, generalized ([facility])Start: 07-30-2024 End: 04-67-5402qjsslwlfaxLLSIL FAZIONot AvailableStart: 07-17-2024 End: 67-91-6452uynpofcpdeYIOTV CROSBYNot AvailableStart: 07-17-2024 End: 38-46-6464Cnsgcj outpatient visit 5 minutesNoms Bcp Ob Halina NurseNOMS BCP OBComment on above:GA: 17r8cFacgx: 30-01-0188tcjghxrdpzIwykih Kiltz [facility]: 07-10-2024 End: 80-02-4826Rqhvgkuiw Result EncounterGeneric External Data ProviderNOMS External Department UnsolicitedStart: 07-10-2024 End: 10-09-8105Wjczcgsrn Result EncounterGeneric External Data ProviderNOMS External Department UnsolicitedStart: 07-08-2024 End: 96-84-3600atbaxdqveiOQQIN CROSBYNot AvailableStart: 06-30-2024 End: 97-38-2212kpkgonsdqwISUMZ CROSBYNot AvailableStart: 06-24-2024 End: 27-18-8055Obhnmb outpatient visit 15 minutesCorey Halina Work Phone: NOMS [facility] OBComment on above:Hospital discharge follow-up; Hyperemesis of ; Hemorrhage in early , antepartum; Subchorionic hematoma in first trimester, single or unspecified fetusStart: 06-24-2024 End: 44-90-5953icjyaybcrtUBKLX FAZIONot AvailableStart: 06-19-2024 End: 48-21-8031bzgxkgtrbcGP Samantha QUINNFacility:FTMCStart: 06-19-2024 Emergency department patient visitTim ThomasFacility:FTMCStart: 06-19-2024 End: 25-26-9071HztzboxlbpzXrciico R MALLICK [facility] Start: 06-16-2024 End: 62-22-8503qxauzblgdvEXXQZH J KILTZFacility:FTMCStart: 06-16-2024 End: 30-40-5912Beltysg encounter procedureJADE Aleman [facility] Start: 06-13-2024 End: 53-32-1386zzrmueafclPYBrant LEDBETTERFacility:FTMCStart: 06-13-2024 End: 76-55-6705Vbvqfvg encounter procedureROBMART Aleman [facility] Start: 06-07-2024 End: 98-26-0367axlpdnqnlcPU ROBERT J KILTZFacility:FTMCStart: 06-07-2024 End: 96-09-5275Zerzeza encounter procedureROBMART Aleman [facility] Start: 06-05-2024 End: 90-03-9479mbekfafhifQKVFIR J KILTZFacility:FTMCStart: 06-05-2024 End: 34-53-3702Brawqnd encounter procedureROBMART Aleman [facility] Start: 05-31-2024 End: 41-86-0371bhyrgetnwrBOLTFY J KILADELINAFacility:FTMCStart: 05-31-2024 End: 21-89-6592Ymfqvds encounter procedureROBMART Aleman [facility] Start: 05-20-2024 End: 65-50-7224kscbhlwywnXXEITN J KILADELINAFacility:FTMCStart: 05-20-2024 End: 02-77-3458Fhsmndg encounter procedureROBMART Aleman [facility] Start: 05-13-2024 End: 04-18-4240yprwkrmsveVN ROBERT Love LEDBETTERFacility:FTMCStart: 05-13-2024 End: 00-31-5986Cbjxdee encounter procedureROBMART Aleman [facility] Start: 05-05-2024 End: 77-34-0220dffhwqxmddXH ROBERT J KILTZFacility:FTMCStart: 05-05-2024 End: 09-47-9992Vaqsfnw encounter procedureROBMART Aleman [facility] Start: 04-30-2024 End: 90-18-1378udtufpkflrPJ JADE LEDBETTERFacility:FTMCStart: 04-30-2024 End: 63-03-7266Refyxxr encounter procedureROBMART Aleman [facility] Start: 04-18-2024 End: 11-67-5828Clsibxqlp Result EncounterGeneric External Data ProviderNOMS External Department UnsolicitedStart: 04-18-2024 End: 96-28-5644Xbvmtybzz Result EncounterGeneric External Data ProviderNOMS External Department UnsolicitedStart: 04-16-2024 End: 40-70-8280Vivauujqb Result EncounterGeneric External Data ProviderNOMS External Department UnsolicitedStart: 04-16-2024 End: 48-20-3225Cczateeft Result EncounterGeneric External Data ProviderNOMS External Department UnsolicitedStart: 04-14-2024 End: 42-90-5069Zraufm outpatient visit 25 minutesPeTan MD Work Phone: NOMS NE FMComment on above:Bipolar affective disorder, currently manic, moderate (CMS/HCC) (Primary Dx)Start: 04-14-2024 End: 55-53-4492wydonxbzhbVNVLV D ZAYNot AvailableStart: 04-14-2024 End: 29-64-8969Itaglvlap Result EncounterGeneric External Data ProviderNOMS External Department UnsolicitedStart: 04-14-2024 End: 56-36-9608Rtnpqocrb Result EncounterGeneric External Data ProviderNOMS External Department UnsolicitedStart: 04-08-2024 End: 79-53-0251zxwmwrxowzUP JADE LEDBETTERFacility:FTMCStart: 04-08-2024 End: 40-40-9176Fhkzbcj encounter procedureJADE [facility]TERCore[facility] Hospital Start: 04-08-2024 End: 12-71-3002Mtfqmaile Result EncounterGeneric External Data ProviderNOMS External Department UnsolicitedStart: 04-08-2024 End: 92-75-0593Sjrsubqhe Result EncounterGeneric External Data ProviderNOMS External Department UnsolicitedStart: 03-14-2024 End: 82-47-9494Ihktghvab Result EncounterGeneric External Data ProviderNOMS External Department UnsolicitedStart: 03-14-2024 End: 72-77-7692Ukfwwqyph Result EncounterGeneric External Data ProviderNOMS External Department UnsolicitedStart: 03-12-2024 End: 95-54-5187Cttw/qhp telephone evaluation 5-10 minUriel Meade DO Work Phone: NOBP BCP OBComment on above:Fallopian tube disorder; Anovulation; Female infertilityStart: 02-18-2024 End: 32-55-6119ckdjadmklqSkooe D ZayFacility:FTMCStart: 02-18-2024 End: 50-97-2894Xnqszpk encounter procedurePeter Kobi Collazo [facility] Start: 02-18-2024 End: 22-85-6771Prcauvgsu Result EncounterPeter Kobi Collazo MD Work Phone: noms External Department UnsolicitedStart: 02-18-2024 End: 55-79-3313Dqxkjomsw Result EncounterPeter Kobi Collazo MD Work Phone: noms External Department UnsolicitedStart: 02-15-2024 End: 55-68-5243Kuvyis outpatient visit 15 minutesCarol GOMEZ Work Phone: NONZ NE FMComment on above:Myalgia (Primary Dx)Start: 02-15-2024 End: 72-50-6871tszmgslwadGOBWNIH J SOMMERSNot AvailableStart: 02-13-2024 End: 03-89-1325Hwgsvhdpc Result EncounterGeneric External Data ProviderNOMS External Department UnsolicitedStart: 02-13-2024 End: 66-58-9923Joiwmiwjy Result EncounterGeneric External Data ProviderNOMS External Department UnsolicitedStart: 01-16-2024 End: 52-04-0217Ivqt/qhp telephone evaluation 5-10 minCorey Halina DO Work Phone: NOWC BCP OBComment on above:Female infertility; Vaginal odorStart: 12-24-2023 End: 26-76-1278Iorxargar Result EncounterGeneric External Data ProviderNOMS External Department UnsolicitedStart: 12-24-2023 End: 80-61-5532Ywdxypgeh Result EncounterGeneric External Data ProviderNOMS External Department UnsolicitedStart: 12-03-2023 End: 26-80-1841Wlzanu flowsheetCorey Halina DO Work Phone: noms BCP OBStart: 12-03-2023 End: 23-68-1607Ksgfza flowsheetCorey Halina DO Work Phone: noms BCP OBStart: 12-03-2023 End: 56-67-2510Ukbtew outpatient visit 15 minutesCorey Halina DO Work Phone: noms [facility] OBComment on above:Fallopian tube disorder (Primary Dx)Start: 11-08-2023 End: 89-30-4759Nxuvjadwb Result EncounterCorey Halina DO Work Phone: noms External Department UnsolicitedStart: 11-08-2023 End: 04-89-9632Hnkazciyf Result EncounterCorey Halina DO Work Phone: noms External Department UnsolicitedStart: 10-15-2023 End: 43-89-0425tpxlldsnewIyjpope A. MouchliFacility:FTMCStart: 10-15-2023 End: 09-56-9001Ydxhsfw encounter procedureAlex Knutson [facility] Start: 09-13-2023 End: 29-90-9748svqwmtptfpTmripfp A. MouchliFacility:[facility] DHStart: 09-13-2023 End: 64-46-0499Feseynw encounter procedureModarlyn Knutson 904-0732Olbnuu-YkkqtSy[facility] Start: 94-90-6605frzawtzesqTmkqabl Mouchli Facility:[facility] DHStart: 66-24-6707Blxbwcgzj encounterKarina Vincent MD Work Phone: EndocrinologyComment on above:ResultsStart: 08-04-2023 End: 80-26-4260Ferdfpvee Result EncounterGeneric External Data ProviderNOMS External Department UnsolicitedStart: 08-04-2023 End: 11-86-8140Ejrmfpuqi Result EncounterGeneric External Data ProviderNOMS External Department UnsolicitedStart: 07-20-2023 End: 78-66-3556Rdpmpmurq department patient visitJoleonardo Danielson MD Work Phone: [facility] Emergency MedicineComment on above:Nausea and vomiting, unspecified vomiting type (Primary Dx); Gastritis, presence of bleeding unspecified, unspecified chronicity, unspecified gastritis typeStart: 06-13-2023 End: 85-83-8988Tcyibseq Lobo Vincent MD Work Phone: EndocrinologyComment on above:Prolactinoma (HCC) (Primary Dx); 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HCC); Elevated prolactin levelStart: 05-28-2023 End: 52-66-4072Cpvkrhjtw Result EncounterGeneric External Data ProviderNOMS External Department UnsolicitedStart: 05-28-2023 End: 74-16-7473Yeckjgnac Result EncounterGeneric External Data ProviderNOMS External Department UnsolicitedStart: 05-23-2023 End: 76-85-1297Jrsrjqfww Result EncounterCorey Halina DO Work Phone: noms External Department UnsolicitedStart: 05-23-2023 End: 46-71-8866Lrutwvumu Result EncounterCorey Halina DO Work Phone: noms External Department UnsolicitedStart: 03-19-2023 Patient encounter procedureCorey Halina DO Work Phone: noms HealthcareStart: 03-22-2020 End: 33-25-0577Kqlkmry encounter procedureGREGORY KARASIKFacility:Z5Aekaf: 66-79-2209Pjsmnjhkm for preprocedural laboratory examinationALLIANCE HOSPITALCOLTON MCGEECleveland Clinic [facility] HospitalStart: 31-01-4268Ljasesddw for other preprocedural examination [facility] HospitalStart: 02-23-2020 End: 91-89-6540Rnxisiu encounter procedureGREGORY KARASIKFacility:P8Cxlvd: 02-20-2020 End: 51-19-3055Ytwxchx encounter procedureGREGORY KARASIKFacility:V2Uoewu: 02-16-2020 End: 71-65-9174Woiwwne encounter procedureGREGORY KARASIKFacility:H9Mdlzjqyym for other preprocedural examinationGREGProMedica Toledo HospitalEncounter for preprocedural laboratory examinationGREGProMedica Toledo Hospital Procedures DateProcedureProcedure DetailPerforming ClinicianStart: 79-91-8458Tmgor dip stick/tablet rgnt non-auto w/o micrscpAmy Melonie GOMEZ Work Phone: Start: 43-36-4023Xlbst dip stick/tablet rgnt non-auto w/o micrscpCorey Halina DO Work Phone: Start: 88-28-3571Jiiqi dip stick/tablet rgnt non-auto w/o micrscpDolores Caldwell NP Work Phone: Start: 19-06-1780Vknxa dip stick/tablet rgnt non-auto w/o micrscpCorey Halina DO Work Phone: Start: 72-58-0269Grevq dip stick/tablet rgnt non-auto w/o micrscpCorey Halina DO Work Phone: Start: 67-74-8362Xojoh dip stick/tablet rgnt non-auto w/o micrscpCorey Halina DO Work Phone: Start: 09-10-2024 End: 74-29-9597Snmshgeoknqc online assessment and managementHyperemesis of pregnancyMaria T Lambert RD Work Phone: comment on above:Hyperemesis of ; Poor weight gain of , second trimesterStart: 82-83-3610ZDRNOHPLI VAGINITIS (HTRX)Uriel Halina DO Work Phone: Start: 55-05-8645Xkfat dip stick/tablet rgnt non-auto w/o micrscpCorey Halina DO Work Phone: Start: 89-80-0794AQO,APTIMA HPV,AGE GDLNCorey Halina DO Work Phone: Start: 49-94-6567Mtehqhntbay observation [Identifier] in Cervix by Cyto Taisha Lambert RD Work Phone: Start: 31-98-6581Ylvzl chlamydia trachomatis amplified probe Juhi Claire MD Work Phone: Start: 76-27-6091Lqwu tthrc r-t 2d w/wom-mode compl spec&colr Han Obregon MD Work Phone: [phone]: 53-59-5034Lbuoo metabolic panel calcium total Amine Alethea ELLISON Work Phone: [phone]: 68-86-3998Trlfclsemq exam abdomen 1 viewRose Claire MD Work Phone: Start: 50-56-2752Le uterus limited 1/> fetusesAlexis N Bisi PA-C Work Phone: [phone]: 32-36-7486Ithdn test visual color cmprsn methsAlexis N Bisi PA-C Work Phone: [phone]: 34-63-7006Ksal tst prsmv instrmnt chem analyzers pr dateRose Claire MD Work Phone: [phone]: 39-50-3419XPAYI URINE DORAN TUBEAlexis N Bisi PA-C Work Phone: [phone]: 26-05-8602Zpdgdtxdcr complete W Reflex Culture panel - UrineAlexis N Bisi PA-C Work Phone: [phone]: 20-13-0369Ydhgu dip stick/tablet reagent auto microscopyAlexis N Bisi PA-C Work Phone: [phone]: 10-08-6236Sxrcijijsgre chorionic quantitative León N Bisi PA-C Work Phone: [phone]: 26-80-7516Eewkxpyt bldAlexis N Bisi PA-C Work Phone: [phone]: 36-00-0716Iwx routine ecg w/least 12 lds trcg only w/o i&rMlaura Dobson MD Work Phone: Start: 40-40-4038Jeb routine ecg w/least 12 lds trcg only w/o i&rCameron D Lemasters DO Work Phone: start: 03-80-6009Bttvcrpoba exam chest single view Milan D Lemasters DO Work Phone: [phone]: 61-29-1680Xrogbdooev complete W Reflex Culture panel - UrineCameron D Lemasters DO Work Phone: start: 59-26-3984Aqnuv dip stick/tablet reagent auto microscopyCameron D Lemasters DO Work Phone: start: 25-30-6410Hrlprbkyqbqbg metabolic panelCameron D Lemasters DO Work Phone: start: 06-36-4271Jthke dip stick/tablet rgnt non-auto w/o micrscpCorey Halina DO Work Phone: Start: 57-67-3255HYQ TESTCorey Halina DO Work Phone: Start: 06-24-2024 End: 86-88-9945Fmvvd dip stick/tablet rgnt non-auto w/o micrscpCorey Halina DO Work Phone: Start: 88-28-7824DO PELVIS TRANSVAGINALGeneric External Data ProviderStart: 41-13-1287VB PELVIS TRANSVAGINALGeneric External Data ProviderStart: 93-83-0189IQ PELVIS TRANSVAGINALGeneric External Data ProviderStart: 66-08-1298CI PELVIS TRANSVAGINALGeneric External Data Provider Start: 65-41-8141Fzmspyjrgee Ortiz MD Work Phone: Start: 31-37-2833Mcurf metabolic panel calcium total Uriel R Halina DO Work Phone: Start: 53-00-7497Xjojevl function panelCorey R Halina DO Work Phone: Start: 68-80-8285ZYC 1&2 AB/AG SCREEN (P24 AG)Not In System Ref ProvStart: 19-36-0908Oznn ia hepatitis b surface antigenNot In System Ref ProvStart: 50-31-2092DNGSHHDY TOTAL(UNKNOWN SYPHILIS STATUS)Not In System Ref ProvStart: 83-26-7596MQSO AND SCREENNot In System Ref ProvStart: 03-14-2024 MLR HEMOGLOBIN I2AZnimtht External Data ProviderStart: 78-79-5642RUMX CBC W/ AUTO DIFFPeTan MD Work Phone: start: 06-28-7413FQPH JESUS INDIVIDUAL ABSPeTan MD Work Phone: start: 38-59-6273RXZX RF QUANTPeTan MD Work Phone: start: 66-33-7792JTNC WRITTEN AUTHORIZATIONPeTan MD Work Phone: start: 52-10-3615BH CATHETERIZATION AND INTRODUCTION FOR SONOHYSTEROGRAPHY CHARGEGeneric External Data ProviderStart: 02-18-2024 SONOHYSTEROGRAPHYGeneric External Data ProviderStart: 95-42-9127KJM THYROID STIM HORMONEGeneric External Data ProviderStart: 56-83-1692KXS PREG QUANT HCGGeneric External Data ProviderStart: 70-09-9849RT HYSTEROSALPINGOGRAMCorey Halina DO Work Phone: Start: 94-29-4252QI HYSTEROSALPINGOGRAPHYGeneric External Data ProviderStart: 49-68-3329ANV PREG QUANT HCGCorey Halina DO Work Phone: Start: 83-39-9714ABQ PROGESTERONEGeneric External Data ProviderStart: 97-53-8924QdkmjtucceiSzyvpio Mouchli Start: 97-14-5025PbluskxlsffvqhtaybgbadlyygCxedyup Mouchli Start: 02-46-0355Rzn brain brain stem w/o w/contrast materialGeneric External Data ProviderStart: 58-79-5137CL CHEST ABDOMEN PELVIS W IV CONTRASTJOSEF LOWEStart: 01-31-9145Wgdgpjd [Moles/volume] in Serum or Plasma GWEN LOWEStart: 07-20-3332CI CHEST 1 VIEWJOSEF LOWEStart: 62-91-8377BMKR SCREEN,URINEJOSEF LOWEStart: 34-61-2818ZUUWE URINE DORAN TUBEJOSEF LOWEStart: 70-28-6444BQPOJGDQFQ MICROSCOPIC WITH REFLEX CULTUREJOSEF LOWEStart: 07-20-2023 URINALYSIS WITH REFLEX CULTURE AND MICROSCOPICJOSEF LOWEStart: 39-42-9581Zt thorax w/contrast materialAbiodun Ochoa PA-C Work Phone: Start: 39-53-9728OFN W Auto Differential panel - Blood GWEN LOWEStart: 08-42-6225Oeusgkadlqrgs metabolic 2000 panel - Serum or Plasma GWEN LOWEStart: 05-40-3164FUIDL CHORIONIC GONADOTROPIN, SERUM QUANTITATIVEJOSEF LOWEStart: 96-23-2267Utpedum [Moles/volume] in Serum or PlasmaJOSEF LOWEStart: 66-03-7164Lnyvaj [Enzymatic activity/volume] in Serum or PlasmaJOSEF LOWEStart: 18-34-3877TERZIVVS I, HIGH SENSITIVITYJOSEF LOWEStart: 53-60-2029DEE 12-LEAD GWEN LOWEStart: 37-56-8635QKXQSB PERIPHERAL IVJOSEF LOWEStart: 57-46-0801Zlzeq of lactateAbiodun Ochoa PA-C Work Phone: Start: 42-53-1191Ujehdqcajc exam chest single viewAbiodun Ochoa PA-C Work Phone: Start: 74-21-7289Waqm tst prsmv instrmnt chem analyzers pr Bell Ochoa PA-C Work Phone: Start: 13-14-4610Mkfxivgmzg complete W Reflex Culture panel - UrineAbiodun Ochoa PA-C Work Phone: Start: 21-94-0700Dqvua dip stick/tablet reagent auto microscopyAbiodun Ochoa PA-C Work Phone: Start: 38-79-2190Kwbnxjifnxelm metabolic panelCody Davina Ochoa PA-C Work Phone: Start: 65-51-7037Ivm routine ecg w/least 12 lds trcg only w/o i&rCody Davina Ochoa PA-C Work Phone: Start: 24-30-6769WUM HEAD/BRAIN WO/W CONTRGeneric External Data ProviderStart: 77-77-2937FG PELVIS W/ TRANSVAGINALCorey Halina DO Work Phone: Start: 68-16-6361FPG CBC WITH AUTO DIFFCorey BMEYE Work Phone: Start: 84-36-7353VPG THYROID STIM HORMONEGeneric External Data ProviderStart: 60-35-7411TGC PREG QUANT HCGGeneric External Data ProviderStart: 55-59-7295RXO PROLACTINCorey BMEYE Work Phone: Start: 00-32-6535Wofpjlqlihr observation [Identifier] in Cervix by Cyto stainGeneric ProviderStart: 08-36-3547Jvwx cerv/vag auto thin layer prep mnl screenCorey BMEYE Work Phone: Tonsillectomy and adenoidectomyPeter Zay Plan of Treatment DateCare ActivityDetailAuthorStart: 63-13-8008Jxhiqo Vaccines (1 of 2)Zoster Vaccines (1 of 2)[facility] HospitalStart: 51-23-5817Posyhbcbl for malignant neoplasm of cervixProMedica Health SystemStart: 86-58-4964Itzrwhkdb for malignant neoplasm of cervixNONH HealthcareStart: 02-68-5140Uatgzae ScreeningTobacco ScreeningProMedica Health SystemStart: 97-25-1748Larugjp ScreeningTobacco ScreeningProMedica Health SystemStart: 11-07-2025 End: 49-53-3345JI MFM with or without consultUS MFM with or without consult Imaging Routine Hyperemesis of renal anomaly, 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 Nausea and vomiting during Poor weight gain of , second trimester In vitro fertilization 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, antepartum Expected: 11/07/2025 (Approximate),Expires: 11/07/2025 [facility] Work Phone: comment on above:Expected: 11/07/2025 (Approximate), Expires: 11/07/2025Start: 10-08-4994Flhov BMI ScreeningAdult BMI Screening [facility] SystemStart: 81-76-5693Hxfyn BMI ScreeningAdult BMI Screening [facility] SystemStart: 53-52-4723Nzsocwd ScreeningTobacco Screening [facility] Hospitaltart: 08-22-2034Ssgmp BMI ScreeningAdult BMI Screening [facility] SystemStart: 28-50-8618Dqgzkur ScreeningTobacco Screening [facility] Hospitaltart: 09-02-2025 End: 55-69-7445MI MFM with or without consultUS MFM with or without consult Imaging Routine Hyperemesis of Poor weight gain of , second trimester In vitro fertilization 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, antepartum Abnormal ultrasound of kidney Expected: 09/02/2025 (Approximate), Expires: 09/02/2025[facility] Work Phone: comment on above:Expected: 09/02/2025 (Approximate), Expires: 09/02/2025Start: 62-19-5795Dfvilng ScreeningTobacco ScreeningProCleveland Clinic South Pointe Hospitalca Health SystemStart: 01-20-2025 End: 59-22-3882Ufxartavlmqk consultation with jmxbbmb6501/20/2025 2:00 PM EST Telemedicine Maternal- Medicine at [facility] [address] [place] [id number] Mario Alberto Ortiz MD [address], [address] [place] [address] [facility] 01-13-2025 End: 89-51-9590Mgbujak encounter uiiicnnhs64/11/2025 9:30 AM EST Routine [facility] ANDRESGY[facility] [address] [place], [id number] Uriel Meade DO [address] [place] [address] [facility] OBGYNStart: 12-31-2024 End: 03-26-6987Cilxqsj encounter aajvnvtsk02/29/2025 8:50 AM EDT Routine [facility] [address] [place], [id number] Dary Wilhelm PA [address] [place] [address] NOMS Whtiley OBGYNStart: 12-31-2024 End: 68-21-7895Ixdfafnykxjr / ancillary services zczyldkodn42/29/2025 8:00 AM EDT Ancillary Procedure [facility] [address] [place] [place] [address] [phone] [facility] OBGYNStart: 12-30-2024 End: 62-88-3436Ikzpxxr encounter /28/2025 9:15 AM EDT [facility]ment [facility] [address] [place] [address] [facility]VbhxjrJacobi [facility] - UltrasoundStart: 28-30-5524GBJ High Risk: (Elderly (60+) or Population) (1 - Risk 1-dose series)RSV High Risk: (Elderly (60+) or Population) (1 - Risk 1-dose series)[facility] HospitalStart: 12-16-2024 End: 64-30-9626QJ for pregnancyUS OB follow up transabdominal approach Imaging Routine Encounter for in vitro fertilization Expected: 12/16/2024, Expires: 04/18/2025[facility] Work Phone: comment on above:Expected: 12/16/2024, Expires: 04/18/2025Start: 12-16-2024 End: 54-69-6812Xmupeqb encounter usuxugqys45/14/2025 9:30 AM EDT Routine NOMHiren ANDRESGYN [address] [place], [id number] Uriel Meade DO [address] [place] [address] [facility] OBGYNStart: 12-09-2024 End: 38-06-4381Icvuvibmtfrf consultation with nuzyozv3312/09/2024 11:30 AM EDT Telemedicine Maternal- Medicine at [address] [id number] Mario Alberto Ortiz MD [address] [facility], [address] [place] [address] [facility]: 12-04-2024 End: 29-50-5859LK MFM with or without consultUS MFM with or without consult Imaging Routine renal anomaly, 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 Expected: 12/04/2024, Expires: 12/04/2025[facility] Work Phone: comment on above:Expected: 12/04/2024, Expires: 12/04/2025Start: 12-04-2024 End: 62-29-4332Kqtzfnz encounter cqqrnzixt43/02/2025 9:15 AM EDT Appointment [facility] [place] [address] [facility] [address] [place] [address] [phone] Medicine [place]Start: 12-02-2024 End: 90-41-2652Jitotul encounter procedureNO Whitley OBGYNComment on above: ArrivedStart: 11-18-2024 End: 26-84-8740HR biophysical profile w non stress testUS biophysical profile w non stress test Imaging Routine resulting from in vitro fertilization in second trimester ([facility]) Expected: 11/18/2024 (Approximate), Expires: 05/18/2025[facility] Work Phone: comment on above:Expected: 11/18/2024 (Approximate), Expires: 05/18/2025Start: 11-18-2024 End: 27-42-8122Gwcrvbp encounter procedureNOMS Whitley OBGYNComment on above: ArrivedStart: 11-06-2024 End: 50-45-6349Cdboqth encounter /04/2025 9:15 AM EDT Appointment [facility] [place] [address] [facility] [address] [place] [address] [facility] [place]: 11-03-2024 COVID-19 Vaccine ( season)COVID-19 Vaccine ( season)[facility] HealthcareStart: 11-33-5285Bknazglfy vaccinationNONH HealthcareStart: 10-21-2024 End: 38-23-7296CSG panel - Blood by Automated countCBC Lab Routine Diabetes mellitus screening Expected: 10/21/2024 (Approximate), Expires: 10/21/2025[facility] Work Phone: comment on above:Expected: 10/21/2024 (Approximate), Expires: 10/21/2025Start: 10-21-2024 End: 22-30-8928Tbzrncqajbw of glucose 1 hour after glucose challenge for glucose tolerance testGlucose tolerance, 1 hour Lab Routine Diabetes mellitus screening Expected: 10/21/2024 (Approximate), Expires: 10/21/2025[facility] HealthcareComment on above:Expected: 10/21/2024 (Approximate), Expires: 10/21/2025Start: 10-21-2024 End: 62-47-0056Xoxuxil encounter procedureNOMS BCP OBComment on above:Arrived Start: 17-07-9785Jsrehkbtrd hospital visit by nkdjnidua73/01/2025 9:15 AM EDT Hospital Encounter [facility] - MRI Imaging [address] [place] [address] [phone] [facility] - MRI ImagingStart: 10-02-2024 End: 51-84-7692Imauzmfazhyt consultation with puryuyy1810/02/2024 2:30 PM EDT Telemedicine Maternal- Medicine at [facility] [address] [place] [address] Krupa Jones MD [address] [facility], [address] [place] [address] [facility] 10-02-2024 End: 86-72-1419Lnprtfn encounter huknzasij81/31/2025 9:45 AM EDT Appointment Maternal Medicine [place] [address] [facility] [address] [place] [address] [phone] Medicine [place]: 09-25-2024 End: 81-05-2463Mwkofcp encounter procedureNOMS BCP OBComment on above:Arrived Start: 09-24-2024 End: 19-68-2379Mpezvis encounter lfaiteuxc18/23/2025 3:00 PM EDT Office Visit [facility]CP OB [address] [place] [address] Uriel Meade, DO [address] [place] [address] NOMS BCP OBStart: 09-17-2024 End: 39-25-3119BS Abdomen WO contrastMR abdomen without contrast Imaging Routine Hyperemesis of Gastroesophageal reflux disease, unspecified whether esophagitis present Expected: 09/17/2024, Expires: 09/17/2025[facility] Work Phone: comment on above:Expected: 09/17/2024, Expires: 09/17/2025Start: 09-17-2024 End: 02-18-5005LK Chest WO contrastMR chest without contrast Imaging Routine Hyperemesis of Gastroesophageal reflux disease,unspecified whether esophagitis present Expected: 09/17/2024, Expires: 09/17/2025[facility] SystemComment on above:Expected: 09/17/2024, Expires: 09/17/2025Start: 09-10-2024 End: 02-71-8858Dcypzdprosjg consultation with csqvogx2309/10/2024 8:00 AM EDT Telemedicine Maternal- Medicine at [facility] [address] [place] [address], [address] [place] [phone] [facility]: 87-24-7412Utwbsehfbf hospital visit by qtjydcnlg57/03/2025 9:30 AM EDT Hospital Encounter [facility] - Ultrasound [address] [place] [address] [phone] [facility] - UltrasoundStart: 09-02-2024 End: 04-05-5735JE AbdomenUltrasound abdomen complete Imaging STAT 16 weeks gestation of Hyperemesis of Expected: 09/02/2024, Expires: 09/02/2025[facility] Work Phone: comment on above:Expected: 09/02/2024, Expires: 09/02/2025Start: 09-02-2024 End: 23-91-4310Ylgfads encounter hiviucidx29/01/2025 8:45 AM EDT Office Visit Maternal- Medicine at [facility] [address] [place] [address] Mario Alberto Ortiz MD [address], [address] [place] [phone] [facility] 09-02-2024 End: 38-63-8734Obdtxwi encounter ojcrnjwxy77/01/2025 7:30 AM EDT Appointment [facility] US Imaging [address] [place] [address] BfsGpvoaf [facility] US ImagingStart: 2024 Screening for malignant neoplasm of cervixHPV/CotestNOMS HealthcareStart: 08-26-2024 End: 05-84-6830Zgqql fetoprotein, maternalAlpha fetoprotein, maternal Lab Routine Second trimester ([facility]) Expected: 08/26/2024 (Approximate), Expires: 10/26/2024[facility] Work Phone: comment on above:Expected: 08/26/2024 (Approximate), Expires: 10/26/2024Start: 08-26-2024 End: 21-18-4588Viqoebh encounter procedureNOMS BCP OBComment on above:Arrived Start: 07-30-2024 End: 09-38-3806Inoobmo encounter procedureNOMS BCP OBComment on above:Arrived Start: 07-17-2024 End: 54-71-9456cdbqnluedz18/15/2025 2:30 PM EDT Initial [facility] BCP OB [address] [place] [address] NLUO BCP OBStart: 06-30-2024 End: 53-92-9291Lejalmvywwtk / ancillary services dsimzctdwd76/28/2025 10:00 AM EDT Ancillary Procedure [facility] BCP OB [address] [place], [place] [address] OTNP BCP OBStart: 06-24-2024 End: 86-25-0250AI Pelvis transvaginalUS OB transvaginal Imaging Routine Hemorrhage in early , antepartum Subchorionic hematoma in first trimester, single or unspecified fetus Expected: 06/24/2024, Expires: 09/23/2024 [facility] Work Phone: comment on above:Expected: 06/24/2024, Expires: 09/23/2024Start: 03-26-2024 End: 11-73-0884Bzrzhpo encounter khqmemtqo97/22/2025 1:00 PM EST Office Visit [facility] BCP OB [address] [place] [place] [address] Uriel Meade, DO [address] [facility] [address] [place], [place] [address] NOMS BCP OBStart: 03-24-2024 End: 04-38-0478Lmjkuta encounter mtitdyssx00/20/2025 4:00 PM EST Office Visit [facility] BCP OB [address] [place] [address] Uriel Meade, DO [address] [facility] [place] [address] NOMS BCP OBStart: 02-15-2024 End: 00-17-9250Rgoiiohrzqxf consultation with kutsqvp9802/15/2024 10:00 AM EST Telemedicine [facility]OM[facility] [place] [address] [place] [address] Carol Magaña PA [address] [place] [address] NOMS NE FMStart: 11-22-2023 End: 30-44-8298Rttyobr encounter knmuymlmd16/19/2024 4:00 PM EDT Office Visit [facility] NE FM [address] [place] [address] Carolyne Collazo MD [address] [place] [address] NOMS NE FMStart: 22-78-6492KLNDI-19 Vaccine ( season)COVID-19 Vaccine ( season)[facility]: 38-00-1023Icpmvuufq vaccinationElyria Memorial Hospitaltart: 07-11-2023 End: 66-75-8050Vquiyixdzskgg [Mass/volume] in PlasmaACTH BLD Lab Routine 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[facility]) Expected: 07/11/2023, Expires: 10/10/2023[facility] ClinicComment on above:Expected: 07/11/2023, Expires: 10/10/2023Start: 07-11-2023 End: 49-98-4257Cqjfaxxb [Mass/volume] in Serum or PlasmaCORTISOL, SERUM Lab Routine 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[facility]) Expected: 07/11/2023, Expires: 10/10/2023 [facility] Center[facility]:Expected: 07/11/2023, Expires: 10/10/2023Start: 07-11-2023 End: 10-99-9857Eehhcjteu (E2) [Mass/volume] in Serum or PlasmaESTRADIOL-17B BLD Lab Routine 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[facility]) Expected: 07/11/2023, Expires: 10/10/[address]23 [facility] on above:Expected: 07/11/2023, Expires: 10/10/2023Start: 07-11-2023 End: 74-52-5407Gzafzeekzyp [Units/volume] in Serum or PlasmaFOLLICLE STIMULATING HORMONE Lab Routine 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[facility]) Expected: 07/11/2023, Expires: leveland ClinicComment on above:Expected: 07/11/2023, Expires: 10/10/2023Start: 07-11-2023 End: 38-59-4327IXTSGNY LIK GR FAC IINSULIN LIK GR FAC I Lab Routine 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[facility]) Expected: 07/11/2023, Expires: 10/10/2023[facility] ClinicComment on above:Expected: 07/11/2023, Expires: 10/10/2023Start: 07-11-2023 End: 90-80-0817Vxqdwiqy [Units/volume] in Serum or PlasmaLUTEINIZING HORMONE Lab Routine 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[facility]) Expected: 07/11/2023, Expires: 10/10/2023 [facility] Campusment on above:Expected: 07/11/2023, Expires: 10/10/2023Start: 07-11-2023 End: 15-96-2251IL Pituitary and Sella turcica WO and W contrast IVMRI PITUITARY WO/W IVCON Radiology Routine 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HCC) Expected: 07/11/2023, Expires: 08/09/2024[facility] Work Phone: Comment on above:Expected: 07/11/2023, Expires: 08/09/2024Start: 07-11-2023 End: 88-01-7541Fnptvhaie [Mass/volume] in Serum or PlasmaPROLACTIN Lab Routine 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[facility]) Expected: 07/11/2023, Expires: 10/10/2023[facility] ClinicComment on above:Expected: 07/11/2023, Expires: 10/10/2023Start: 07-11-2023 End: 44-37-7463Anlrnknevaog [Mass/volume] in PlasmaGROWTH HORMONE Lab Routine 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[facility]) Expected: 07/11/2023, Expires: 10/10/2023[facility]and ClinicComment on above:Expected: 07/11/2023, Expires: 10/10/2023Start: 07-11-2023 End: 12-68-4886Wtpalxifehd [Units/volume] in Serum or PlasmaTHYROID STIMULATING HORMONE Lab Routine 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[facility]) Expected: 07/11/2023, Expires: leveland ClinicComment on above:Expected: 07/11/2023, Expires: 10/10/2023 Start: 07-11-2023 End: 19-87-8516Dfyuwjrsd (T4) free [Mass/volume] in Serum or PlasmaT4 FREE/FREE THYROXINE Lab Routine 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[facility]) Expected: 07/11/2023, Expires: 10/10/2023[facility] ClinicComment on above:Expected: 07/11/2023, Expires: 10/10/2023Start: 64-88-7775Jdgajgfkmv Health ScreeningBehavioral Health ScreeningElyria Memorial Hospitaltart: 67-60-0235Udaqw-19 Vaccine ( season) Covid-19 Vaccine ()[facility]: 96-20-1327OPoL,Tdap and Td Vaccines (3 - Td or Tdap)DTaP,Tdap and Td Vaccines (3 - Td or Tdap) [facility]: 63-37-0046PDcL/Tdap/Td Vaccines (3 - Td or Tdap) DTaP/Tdap/Td Vaccines (3 - Td or Tdap)[facility]: 68-83-5205Hzntt microalbumin profileDTaP,Tdap,Td Vaccine (3 - Td or Tdap) [facility]: 57-94-8099Cxwdlvcny for malignant neoplasm of cervix [facility]: 53-47-5373Xnbiqqecv B Vaccine (3 of 3 - 19+ 3-dose series)Hepatitis B Vaccine (3 of 3 - 19+ 3-dose series)[facility]: 70-62-4026Cldgvvptc B Vaccines (3 of 3 - 19+ 3-dose series)Hepatitis B Vaccines (3 of 3 - 19+ 3-dose series)[facility]: 05-12-2014 Hepatitis A Vaccines (2 of 2 - 2-dose series)Hepatitis A Vaccines (2 of 2 - 2- dose series)[facility]: 10-22-0362Emgbecvtnybf Vaccine: Pediatrics (0 to 5 Years) and At-Risk Patients (6 to 64 Years) (1 of 2 - PCV)Pneumococcal Vaccine: Pediatrics (0 to 5 Years) and At-Risk Patients (6 to 64 Years) (1 of 2 - PCV)[facility]: 84-53-0475Esbgp BMI Screening Adult BMI ScreeningDosher Memorial Hospitaltart: 27-66-0800Lfzlmoobk C screening Hepatitis C ScreeningElyria Memorial Hospitaltart: 53-82-5603ILL screeningHIV Screening [facility]: 97-50-8174Zddatps of varicella vaccinationVaricella Vaccines (2 of 2 - 13+ 2-dose series)[facility]: 04-79-7645Edqlqgzvn vaccinationVaricella Vaccines (2 of 2 - 13+ 2-dose series)[facility]: 27-61-3560LUaE/Tdap/Td Vaccines (3 - Td or Tdap)DTaP/Tdap/Td Vaccines (3 - Td or Tdap)[facility]: 66-41-2493Qteqvtswbo Screening Depression ScreeningDosher Memorial Hospitaltart: 73-53-3559Lepmqzppridr Vaccine: Pediatrics (0 to 5 Years) and At-Risk Patients (6 to 64 Years) (1 of 2 - PCV)Pneumococcal Vaccine: Pediatrics (0 to 5 Years) and At-Risk Patients (6 to 64 Years) (1 of 2 - PCV)[facility]: 84-83-5352YVU Vaccines (2 of 3 - 4-dose series)IPV Vaccines (2 of 3 - 4-dose series)[facility]: 28-69-3641SQY screeningHIV ScreeningUnCleveland Clinic: 75-75-0043Fgwer panelLipid PanelUnCleveland Clinic: 56-27-8983Tcscvj Adult PhysicalYearly Adult PhysicalUnThe [facility] Hospital End: 97-32-7401Jmjyzknqt UltrasoundAbdominal Ultrasound Procedures STAT Once for 1 Occurrences starting 08/15/2024 until 08/15/2024[facility] Service Area Work Phone: Comment on above:Once for 1 Occurrences starting 08/15/2024 until 08/15/2024 End: 68-04-4682DSA panel - Blood by Automated countCBC without diff Lab Routine 16 weeks gestation of Hyperemesis of 1 Occurrencesstarting 09/02/2024 until 09/02/2025[facility] SystemComment on above:1 Occurrences starting 09/02/2024 until 09/02/2025BC W Auto Differential panel - BloodCBC and differential Lab Routine Anemia, unspecified type Ordered: 12/02/2024[facility] [employer] Work Phone: comment on above:Ordered: 12/02/2024HLAMYDIA TRACHOMATIS (GENITO/STI)CHLAMYDIA TRACHOMATIS (GENITO/STI) Lab Routine STD exposure Ordered: 08/26/2024[facility] HospitalComment on above:Ordered: 08/26/2024 End: 04-10-4314Ynirvhgejjoux metabolic 2000 panel - Serum or PlasmaComprehensive metabolic panel Lab Routine 16 weeks gestation of Hyperemesis of 1 Occurrences starting 09/02/2024 until 09/02/2025[facility] SystemComment on above:1 Occurrences starting 09/02/2024 until 09/02/2025 End: 84-93-9438Hnnujhpjibhamj vitamin b-12Vitamin B12 Lab Routine 16 weeks gestation of Hyperemesis of 1 Occurrences starting 09/02/2024 until 09/02/2025[facility] SystemComment on above:1 Occurrences starting 09/02/2024 until 09/02/2025ytology Cervical or vaginal smear or scraping studyPap Smear Pathology and Cytology Routine Well woman exam with routine gynecological exam Ordered: 08/26/2024NONH HealthcareComment on above: Ordered: 08/26/2024ECG 12 leadECG 12 lead ECG STAT 07/20/2023 2:57 PM [facility] Work Phone: End: 04-77-7779RTC 12 [facility] Work Phone: Comment on above:Once for 1 Occurrences starting 08/13/2024 until 08/13/2024ECG 12 leadECG 12 lead ECG STAT 08/15/2024 10:42 AM [facility] Work Phone: End: 78-69-2477Xhialudburlmypnkf, 12-lead PRN [facility] Work Phone: Comment on above:As needed until discontinued starting 08/15/2024Once for 1 Occurrences starting 08/15/2024 until 08/15/2024 End: 13-17-8575Vvmug Urine [facility] Work Phone: Comment on above:Once for 1 Occurrences starting 07/20/2023 until 07/20/2023 End: 64-81-2858Gegcy Urine [facility] Work Phone: Comment on above:Once for 1 Occurrences starting 08/13/2024 until 08/13/2024 End: 18-98-8584Oovoerkh [Mass/volume] in Serum or PlasmaFerritin Lab Routine 16 weeks gestation of Hyperemesis of 1 Occurrences starting 09/02/2024 until 09/02/2025[facility] Health SystemComment on above:1 Occurrences starting 09/02/2024 until 09/02/2025 End: 13-07-7793CjcudzZgfyli Lab Routine 16 weeks gestation of Hyperemesis of 1 Occurrences starting 09/02/2024 until 09/02/2025 [facility] SystemComment on above:1 Occurrences starting 09/02/2024 until 09/02/2025Gas panel - Arterial cord bloodBlood Gas Cord Arterial Lab Timed As needed (Lab) until discontinued starting 08/15/2024[facility] Work Phone: Comment on above:As needed (Lab) until discontinued starting 08/15/2024Gas panel - Venous cord bloodBlood Gas Cord Venous Lab Timed As needed (Lab) until discontinued starting 08/15/2024[facility] Work Phone: Comment on above:As needed (Lab) until discontinued starting 08/15/2024 End: 78-57-2816Bgkjqhuvw [Mass/volume] in Serum or PlasmaMagnesium Lab Routine 16 weeks gestation of Hyperemesis of 1 Occurrences starting 09/02/2024 until 09/02/2025[facility] SystemComment on above:1 Occurrences starting 09/02/2024 until 09/02/2025Neisseria gonorrhoeae DNA [Presence] in Unspecified specimen by REEMA with probe detectionNeisseria gonorrhea DNA probe, direct Lab Routine STD exposure Ordered: 08/26/2024[facility] HealthcareComment on above:Ordered: 08/26/2024Nonstress [facility]University [facility] Area Work Phone: comment on above:Daily until discontinued starting 08/15/2024s needed until discontinued starting 08/15/2024SURESWAB(R) ADVANCED VAGINITIS PLUS, TMASURESWAB(R) ADVANCED VAGINITIS PLUS, TMA Pathology and Cytology Routine STD exposure Ordered: 08/26/2024NONH HealthcareComment on above:Ordered: 08/26/2024 End: 88-21-3400Qofgxiklar complete W Reflex Culture panel - UrinePRES[facility] Service Area Work Phone: Comment on above:Once (Lab) for 1 Occurrences starting 07/20/2023 until 07/20/2023 End: 67-54-6581Exdzcbzzsw complete W Reflex Culture panel - UrinePRESBYTERIAN [facility] Service Area Work Phone: comment on above:Once (Lab) for 1 Occurrences starting 08/13/2024 until 08/13/2024 End: 78-46-1981Qqfgttrjzr macro (dipstick) panel - UrinePOCT urinalysis dipstick manually resulted Point of Care Testing Routine Daily (Lab) for 1 Weeks sta rting 08/15/2024 until 08/20/2024[facility] Work Phone: Comment on above:Daily (Lab) for 1 Weeks starting 08/15/2024 until 08/20/2024 Immunizations Immunization DateImmunizationNotesCare UwjqrfngWorsrucd52-22-2985zixvpcorg, injectable, quadrivalent, preservative freeCorey Halina DO Work Phone: [facility] HospitalPbshpevfqr32-62-6102afewqgkva virus vaccine, unspecified formulationKarina Vincent MD Work Phone: [phone]-FlebmHolmes County [facility]03-16-2015 hepatitis B vaccine, adult dosageMohamad Mouchli [phone]-EjvxxHolmes [facility]01-26-2015 hepatitis B vaccine, adult dosageMohamad Mouchli [phone]-YsiqlSycamore Medical Center [facility] Miqopc41-78-6877 hepatitis A vaccine, pediatric/adolescent dosage, 2 dose scheduleCorey Halina DO Work Phone: [facility] HospitalHbeofcttow85-72-9617uswhcqzbm A vaccine, unspecified formulationMohamad Mouchli [phone]-TeqgdSycamore Medical Center [facility]est[facility] Nbgbbd89-51-3322 hepatitis B vaccine, pediatric or pediatric/adolescent dosageMohamad Mouchli [phone]-ZzdrjHolmes County [facility]09-10-2014 hepatitis A and hepatitis B vaccineGwen Danielson MD Work Phone: [facility] Work Phone: [phone] virus vaccine, whole virusCorey Halina DO Work Phone: [facility] HospitalSulcudusiz69-73-1053jhoenqcrp, wholeMohamad Mouchli [phone]-FozeoHolmes County [facility]10-12-2013 measles, mumps and rubella virus vaccinePeter Collazo Corey HospitalComment on above:Reason for Medication: Other (see comment)17-91-3024enxjzhdoq A vaccine, pediatric/adolescent dosage, 2 dose scheduleCorey Halina DO Work Phone: [facility] HospitalDwsixiiqdg66-34-4192nshnldulo A vaccine, unspecified formulationMohamad Mouchli [phone]-TxpssHolmes County [facility]02-16-2011 varicella virus vaccineJoleonardo Danielson MD Work Phone: [phone]-OtjgnHolmes County [facility]03-27-2009 meningococcal ACWY vaccine, unspecified formulationMohamad Mouchli [phone]-VyyddHolmes County [facility]03-27-2009 meningococcal polysaccharide (groups A, C, Y and W-135) diphtheria toxoid conjugate vaccine (MCV4P)Uriel Halina DO Work Phone: [facility] HospitalIalslndkrd31-49-6901wmeqvdo toxoid, reduced diphtheria toxoid, and acellular pertussis vaccine, adsorbedMohamad Mouchli [phone]-OffdyHolmes County [facility]10-11-2007 HPV, unspecified formulationMohamad Mouchli [phone]-YgbciHolmes County [facility] Hospital10-11-2007 human papilloma virus vaccine, quadrivalentCorey Halina DO Work Phone: [facility] HospitalNtmjvinlzz42-39-6698CIH, unspecified formulation Mohamad Mouchli [phone]-McueqHolmes County [facility]06-11-2007 human papilloma virus vaccine, quadrivalentCorey Halina DO Work Phone: [facility] HospitalJjuvlngwiq07-57-2014FOQ, unspecified formulation Mohamad Mouchli [phone]-SwpptSycamore Medical Center Digestive Dpgiqb72-45-4537 human papilloma virus vaccine, quadrivalentCorey Halina DO Work Phone: [facility] HospitalPgrazwbfvy74-29-1851snypjpjpfd, tetanus toxoids and acellular pertussis vaccine, unspecified formulationCorey Halina DO Work Phone: [facility] HospitalYrywggfesv77-09-8047NLiI, unspecified formulation Mohamad Mouchli [phone]-BmmzfHolmes County [facility]04-05-2000 measles, mumps and rubella virus vaccineMohamad Mouchli [phone]-GnxbwHolmes County [facility]04-05-2000 poliovirus vaccine, inactivatedCorey Halina DO Work Phone: [facility] HospitalQbbjyyfzxe60-02-4179oefmkjbpcl vaccine, unspecified formulationGwen Danielson MD Work Phone: [phone]-CgwmgSycamore Medical Center Digestive Health Payers DatePayer CategoryPayerPolicy [id number] Health Insurance [id number] 16-40-0413XjfhGila Regional Medical Center1.2.840.457693.1.13.693.2.7.9.050629.400129.315 96-20-9286WrpuSt. Vincent'S [facility]ilton CareGO[facility] Member Subscriber Plan / Payer (Effective 2019-Present) Name: Indu Jorgensen Relation to Subscriber: Self Name: Indu Jorgensen Payer ID: [id number] (NAIC) Type: Not on file Address: [facility] [address] [place] [id number] 04-55-2892QngqGila Regional Medical Center Managed Care - Other [id number].9.818485.508.86293-23-3670Isvesmr 1.2.840.242438.1.13.159.2.7.3.595[id number] 2.16.840.1.658811.3.57[id number] 2.160.1.888811.3.57[id number] 2.0.1.740587.3.57[id number] 2.840.1.808559.3.57[id number] 2.16840.1.776998.3.57[id number] 2.16840.1.050870.3.57[id number] 2.160.1.209281.3.57[id number] 2.16840.1.809121.3.57[id number] 2.16840.1.532623.3.57[id number] 2.16840.1.422219.3.57[id number] 2.16840.1.301899.3.579.[id number] 2.16.840.1.036455.3.57[id number] 2.16.840.1.225270.3.57[id number] 2.16840.1.304129.3.57[id number] 2.840.1.659466.3.57[id number] 2.840.1.461317.3.57[id number] 2.840.1.692839.3.57[id number] 2.840.1.906422.3.579.2.88074-72-7594Ubhbpzv49258616 2.840.1.624736.3.579.2.67674-43-1857Cwswimx91310325 2.840.1.902897.3.579.2.95508-79-0626Wzsobom16031189 2.840.1.420673.3.579.2.35645-20-1503Wprygjd84891858 2.840.1.190828.3.579.2.40136-59-2350Jhryhwa26669597 2.840.1.053793.3.579.2.61274-08-9912Ppsifob18811328 2.840.1.665810.3.579.2.08946-34-6078Awqjexu83874739 2.840.1.844157.3.579.2.51181-00-1216Qdjmfjk18470506 2.840.1.633540.3.579.2.21350-99-3408Ryoikzu54110038 2.16.840.1.055712.3.579.2.06073-89-2041Vmeexbc14328558 2.16840.1.983521.3.579.2.91910-18-3187Kejhlwf09811473 2.840.1.158164.3.579.2.34452-14-0021Dzhlyve87183228 2.16840.1.355866.3.579.2.66948-27-8068Kguxqhh18272738 2.0.1.553745.3.579.2.954840-66-7067Wskfpeq81334254 2.0.1.854472.3.579.2.205443-55-1524Gjqccpn62472574 2.0.1.920538.3.579.2.81482-48-5606Myxzoda41344413 2.840.1.474897.3.579.2.29550-25-4729Chvdzds38309197 2.0.1.633811.3.579.2.88076-97-1792Ueqkopd80934458 2.0.1.585373.3.579.2.19934-48-3321Gvvrqvw918125151 2.840.1.983285.3.579.2.018843-11-1311Xunyodo445112954 2.840.1.907423.3.57[id number] 2.840.1.545156.3.579.2.360342-69-9087Xonjahl907147357 2.840.1.531802.3.579.2.679395-00-1288Nqfbqbh680331642 2.840.1.255189.3.579.2.008928-98-1960Dmvbprg275206894 2.840.1.277225.3.579.2.552463-30-2889Yfykyns24039476 2.840.1.966973.3.579.2.01833-82-1234Tnidscz37762690 2.840.1.706527.3.579.2.04424-97-9586Qpogzoi182239887 2.840.1.407345.3.579.2.550902-68-5961Fnzxjdy671589699 2.840.1.704209.3.579.2.254781-92-2671Ofddsrd631773741 2.840.1.543987.3.579.2.467742-23-5006Mdosmed203523363 2.0.1.649154.3.579.2.719624-16-6033Gkzxyok911342683 2.0.1.428115.3.579.2.629230-70-3434Aprflrt450379762 2.0.1.339315.3.579.2.302673-78-2191Cvkiidj143937288 2.0.1.508858.3.579.2.455092-74-4669Vdvogii576757308 2.840.1.154896.3.579.2.390600-36-2556Rhwrtfw732705671 2.840.1.070711.3.579.2.745532-56-4455Qmndiku92023964 2.840.1.860391.3.579.2.296060-01-5831Smrcxjn17634562 2.840.1.062721.3.579.2.443300-89-7343Fvfvbmm29850670 2.16.840.1.980219.3.579.2.733024-65-5425Dflfhcp29334948 2.16.840.1.959295.3.579.2.447484-58-2816Vfqjcfn05487944 2.840.1.039817.3.579.2.229820-20-8770Shxlnzb48971346 2.16840.1.882079.3.579.2.787539-91-0413Ffhsozx73712129 2.0.1.477278.3.579.2.265554-87-5178Cfgwxoo86167942 2.0.1.470974.3.579.2.231850-89-3241Fykofjp0438758 2.0.1.908247.3.579.2.944028-62-5059Uxppjqh5134035 2.0.1.644993.3.579.2.452549-00-7264Slvuezb4000228 2.0.1.634903.3.579.2.751545-61-3488Sphshlt2992992 2..1.872463.3.579.2.634626-84-8088Gurnfht0016856 2.0.1.616295.3.579.2.731140-49-5466Wkbmfys7991662 2.0.1.284597.3.579.2.353025-01-2817Ckltyog5626958 2.840.1.445774.3.579.2.639149-61-2078Mplqolx75540049 2.840.1.237140.3.579.2.98416-37-4531Asfhchx96986571 2.16.840.1.236750.3.579.2.86277-14-4053Omtgexx65969410 2.16.840.1.453467.3.579.2.94999-33-2079Ciebxdq54050040 2.16.840.1.299834.3.579.2.31498-47-3506Bnursud30143375 2.16.840.1.380560.3.579.2.45665-79-9699Tscncof58539105 2.16.840.1.642719.3.579.2.07810-74-5645Ozlwxjh53613493 2.16.840.1.219290.3.579.2.24428-62-4114Vqnzsmq39806028 2.16.840.1.505077.3.579.2.17571-31-6791Noymzid18129819 2.16.840.1.354458.3.579.2.42490-73-0808Yvtikdo78230255 2.16.840.1.474974.3.579.2.10276-83-4457Bmcxanv23052249 2.16.840.1.581894.3.579.2.23506-21-3069Cuiygmu37141127 2.16.840.1.724925.3.579.2.07949-69-8827Uspbace85793562 2.16.840.1.007940.3.579.2.95825-36-9055Djkyrco20486762 2.16.840.1.900052.3.579.2.15792-55-0696Evwlzea57927019 2.16.840.1.610072.3.579.2.00431-37-5549Jmeyikr96971410 2.16.840.1.643699.3.579.2.61180-28-9028Bvidluj53064742 2..840.1.962933.3.579.2.82151-09-7571SlvnvyeDQS01450304901-34-3163Zmjqfmr A9212280770-32-9133XqtllacXPYHU5673559Zuxbedy82318140 2.16.840.1.873518.3.579.2.531 Social History DateTypeDetailFacilityTobacco smoking status NHISTobacco smoking consumption unknownElyria Memorial Hospitaltart: 06-13-2023 End: 09-45-5984Iqyarev of Social functionNONH HealthcareStart: 06-13-2023 End: 70-37-0876Rwev Deprivation IndexThe Bellevue Hospitaltart: 80-73-6457Obzzibdz Score (1-100), lower number is lower oblp72Nwpmyo-OexksSycamore Medical Center Digestive HealthStart: 69-05-1315Jek Assigned At BirthNot on file [facility]: 07-10-2023 End: 52-36-9705Igfyrvjl to SARS-CoV-2 (event)Not [facility] Work Phone: Start: 09-06-2022 End: 77-98-5670Homasrb smoking statusNever smoked tobacco (finding)[facility] HealthStart: 12-03-2023 End: 44-09-5983Zbfvrubku beverage intakeLifetime non-drinker (finding)[facility] HealthcareStart: 85-57-1922Oeiuhlg Commentcaffeine: noneNOMS HealthcareDo you belong to any clubs or organizations such as anabaptism groups, unions, fraternal or athletic groups, or school groups?NoNOMS HealthcareAre you now , , , , never or living with a partner?MarriedNOMS HealthcareHow often to you have a drink containing alcohol?Monthly or lessNOMS HealthcareHow many standard drinks containing alcohol do you have on a typical day?1 or 2NOMS HealthcareHow often do you have 6 or more drinks on 1 occasion? NeverNOMS HealthcareDo you feel stress - tense, restless, nervous, or anxious, or unable to sleep at night because yourmind is troubled all the time - these days [OSQ]Very muchNOMS Healthcare(I/We) worried whether (my/our) food would run out before (I/we) got money to buy more.Never trueNOMS HealthcareSexual OrientationCorey Hospital Start: 05-23-2018 End: 47-56-8094PtgFexxys (finding)[facility] Hospitaltart: 05-22-2024 PregnancyNOMS HealthcareStart: 08-15-2024 End: 41-14-8773Gxsmkyy use and exposureSmokeless tobacco non-userProMedica Def[facility] Work Phone: Start: 08-87-6550Vly assigned at birthFePomerene HospitalStart: 63-55-2856Ykfcoc identityIdentifies as female gender (finding)[facility] Work Phone: Start: 08-18-2024 End: 87-87-4642Essolnxxa beverage intakeEx-drinker (finding)[facility] Functional Status EcqqLyhrkegqkvJzjkruVwrewbgo81-05-0731Llnpf score [AUDIT-C]0 08/15/2024 8:29 PM EDIsabella Morris RNUnThe Jewish Hospital Work Phone: 1(609) 891-430406250525-16-4504Pdmubwa Health Questionnaire 2 item (PHQ-2) [Reported][facility] Work Phone: 1(729) 473-726606-081781-44-8223Ukadbyef - suicide severity rating scale screener - recent [C-SSRS][facility]06-11-2025[place] - suicide severity rating scale screener - recent [C-SSRS][facility] Work Phone: 1(908) 632-581604830391-95-7572Whtoyhmwlr StatusNoCorey Hospital04-17-2025Functional StatusCorey Hospital12-13-2024Total score [AUDIT-C]1 02/15/2024 9:51 AM EST Mychart, GenericNOMS Healthcare 05-54-7636Nog often do you have a drink containing alcohol?Monthly or less 02/15/2024 9:51 AM EST Mychart, Generic Monthly or lessNOMS Waxajkztwn57-64-3282 How many standard drinks containing alcohol do you have on a typical day?1 or 2 02/15/2024 9:51 AM EST Mychart, Generic 1 or 2NOMS Ctgntjamnn88-39-5199Dvh often do you have 6 or more drinks on 1 occasion?Never 02/15/2024 9:51 AM EST Mychart, Generic NeverNOSaint Luke's HospitalJybroxhxor09-00-1263Lbtahsmbvp StatusN/[facility]07-11-2024Functional [facility]N/[facility] HospitalUnThe [facility] Work Phone: [facility] Work Phone: Clinical Notes 01-20-2021 to 01-12-2025 Note Date & AojmWwznRrfuphhw82-52-8134 NoteDischarge Instructions Given Worsening The following Patient Education Materials have been given to the patient: ~~ EducationMateriSt. [facility]'s Hospital11-10-2025 NoteProgress Note-Nurse Patient: INDU JORGENSEN Age: 29 years Sex: Female : 1995 Associated Diagnoses: None Author: Deanne Evans RN Basic Information /Para: Para Information: : 3 Para Term: 1 Para : 0 Para Abortions: 1 Para Livin. Date of study 01/12/2025. Providers Referring provider: dashawn Dorsey provider: dashawn meade Indication for procedure: hx of IVF. Gestation: zimmerman. Maternal assessment movement reported: present. Contractions: frequency: irreg. Leaking fluid: no. Vaginal bleeding no Pain: 0 / 10. Vital signs Systolic blood pressure: 122 mmHg. Diastolic blood pressure: 66 mmHg. Pulse: 101 beats per minute. Respirations: 20 per minute. 36.6C. Gestational Age: Gestational Age (EGA) and RENO * Note: EGA calculated as of 01/12/2025 RENO: 02/12/2025 EGA*: 35 weeks 4 days Type: Authoritative Method Date: 08/14/2024 Method: Unknown (08/14/2024) Confirmation: Confirmed Description: -- Comments: -- Entered by: Fabricio It Solutions ArchitectAlysha on 08/14/2024 Other RENO Calculations for this : No additional RENO calculations have been recorded for this . Health Status Current medications: (Selected) Procedure Well Being Procedure Zimmerman Procedure was completed. movement: present. Heart tones: 135 bpm, monitored for 20 minutes, reactive, baseline description was normal (110 - 160 bpm), baseline variability moderate, heart rate accelerations were present. Contractions: occasional, irregular pattern, mild. Uterine activity: normal. Non-stress test interpretation: reactive.[facility]11-06-2025 NoteDischarge Instructions Given Worsening The following Patient Education Materials have been given to the patient: ~~ EducationMateriSt. Anthony's Hospital11-06-2025 NoteProgress Note-Nurse Patient: INDU JORGENSEN Age: 29 years Sex: Female : 1995 Associated Diagnoses: None Author: Nathan RN, Quinton Ghosh Basic Information No qualifying data available /Para: Para Information: : 3 Para Term: 1 Para : 0 Para Abortions: 1 Para Livin. Include all results : NST results 01/08/2025 8:59 EST Consent for Treatment consent for treatment 01/08/2025 8:47 EST US Biophysical Profile w/ Non-Str US Biophysical Profile w/ Non-Str (In Progress) 01/05/2025 8:31 EST Monitoring Annotation Non-Stress Test 01/05/2025 8:31 EST Discharge Instructions Given Worsening Discharge Instructions Given Worsening 01/05/2025 8:31 EST Inpatient Patient Summary Inpatient Patient Summary 01/05/2025 8:31 EST Inpatient Clinical Summary Inpatient Clinical Summary 01/05/2025 8:15 EST Mode of Transfer Private vehicle Mode of Discharge Ambulatory Discharge To, OB Home independently Condition at Discharge Stable Pending Diagnostic Test Results None Pharmacy Information [facility] OB Nursing Discharge Summary - Text OB Nursing Discharge Summary Progress Note-Nurse OB Well Being * 01/05/2025 7:50 EST Physician Order nst 01/05/2025 7:31 EST Consent for Treatment CONSENT FOR TREATMENT 01/01/2025 11:27 EDT Monitoring Annotation Non-Stress Test 01/01/2025 11:26 EDT Discharge Instructions Given Worsening Discharge Instructions Given Worsening Inpatient Patient Summary Inpatient Patient Summary 01/01/2025 11:26 EDT Inpatient Clinical Summary Inpatient Clinical Summary 01/01/2025 11:07 EDT Progress Note-Nurse OB Well Being * 01/01/2025 11:[address] meade office notified of results on NST/BPP 01/01/2025 11:03 EDT Condition at Discharge Stable Pending Diagnostic Test Results None Pharmacy Information [facility] Coding Summary. Coding Summary. 01/01/2025 10:47 EDT Physician Order nst 01/01/2025 10:44 EDT Monitoring Annotation 98.4 oral temp 01/01/2025 10:39 EDT US Biophysical Profile w/ Non-Str US Biophysical Profile w/ Non-Str 01/01/2025 10:37 EDT Consent for Treatment consent for treatment 12/29/2024 9:06 EDT Discharge Instructions Given Worsening Discharge Instructions Given Worsening 12/29/2024 9:06 EDT Inpatient Patient Summary Inpatient Patient Summary 12/29/2024 9:06 EDT Inpatient Clinical Summary Inpatient Clinical Summary 12/29/2024 8:38 EDT Monitoring Annotation Non-Stress Test 12/29/2024 8:32 EDT Condition at Discharge Stable Pending Diagnostic Test Results None Pharmacy Information [facility] 12/29/2024 8:22 EDT Progress Note-Nurse OB Well Being * 12/29/2024 8:15 EDT Coding Summary. Coding Summary. 12/29/2024 8:07 EDT Monitoring Annotation Turn to right side 12/29/2024 7:58 EDT Monitoring Annotation Turn to left side 12/29/2024 7:54 EDT Physician Order NST 12/29/2024 7:37 EDT Consent for Treatment CONSENT FOR TREATMENT 12/25/2024 13:09 EDT Progress Note-Nurse OB Well Being * 12/25/2024 11:39 EDT Discharge Instructions Given Worsening Discharge Instructions Given Worsening Inpatient Patient Summary Inpatient Patient Summary 12/25/2024 11:39 EDT Inpatient Clinical Summary Inpatient Clinical Summary 12/25/2024 11:38 EDT Monitoring Annotation NST 12/25/2024 11:10 EDT Coding Summary. Coding Summary. 12/25/2024 10:42 EDT Consent for Treatment consent for treatment 12/25/2024 10:37 EDT Physician Order nst 12/25/2024 10:33 EDT US Biophysical Profile w/o N-Str US Biophysical Profile w/o N-Str 12/22/2024 9:03 EDT Discharge Instructions Given Worsening Discharge Instructions Given Worsening Inpatient Patient Summary Inpatient Patient Summary 12/22/2024 9:03 EDT Inpatient Clinical Summary Inpatient Clinical Summary 12/22/2024 9:02 EDT Monitoring Annotation Non-Stress Test 12/22/2024 8:57 EDT Physician Order NST 12/22/2024 8:55 EDT Coding Summary. Coding Summary. 12/22/2024 8:50 EDT Progress Note-Nurse OB Well Being * 12/22/2024 7:39 EDT Consent for Treatment CONSENT FOR TREATMENT 12/18/2024 23:59 EDT Coding Summary. Coding Summary. 12/18/2024 14:49 EDT Monitoring Annotation Non-Stress Test 12/18/2024 11:47 EDT Discharge Instructions Given Worsening Discharge Instructions Given Worsening Inpatient Patient Summary Inpatient Patient Summary 12/18/2024 11:47 EDT Inpatient Clinical Summary Inpatient Clinical Summary 12/18/2024 11:47 EDT Coding Summary. Coding Summary. 12/18/2024 11:16 EDT WBC 11.9 E9/L HI RBC 3.6 E12/L LOW HGB 11.2 gm/dL LOW Hct 32.6 % LOW MCV 90.2 fL MCH 31.0 pg MCHC 34.4 gm/dL RDW 15.5 % HI Platelet 312.0 E9/L MPV 7.2 fL Neutro Auto 79.0 % HI Lymph Auto 15.6 % [place] Auto 4.4 % Eos Auto 0.5 % Basophil Auto 0.5 % Neutro Absolute 9.4 E9/L HI Lymph Abso (more content not included)...[facility]11-03-2025 NoteDischarge Instructions Given Worsening The following Patient Education Materials have been given to the patient: ~~ EducationMateGal[facility]11-[facility]-2025 NoteProgress Note-Nurse Patient: INDU JORGENSEN Age: 29 years Sex: Female : 1995 Associated Diagnoses: None Author: Deanne Evans RN Basic Information /Para: Para Information: : 3 Para Term: 1 Para : 0 Para Abortions: 1 Para Livin. Date of study 01/05/2025. Providers Referring provider: dashawn Dorsey provider: dashawn meade Indication for procedure: IVF. Gestation: zimmerman. Maternal assessment movement reported: present. Contractions: none. Leaking fluid: no. Vaginal bleeding no Pain: 0 / 10. Vital signs Systolic blood pressure: 132 mmHg. Diastolic blood pressure: 67 mmHg. Pulse: 105 beats per minute. Respirations: 18 per minute. temp 36.6C. Gestational Age: Gestational Age (EGA) and RENO * Note: EGA calculated as of 01/05/2025 RENO: 02/12/2025 EGA*: 34 weeks 4 days Type: Authoritative Method Date: 08/14/2024 Method: Unknown (08/14/2024) Confirmation: Confirmed Description: -- Comments: -- Entered by: Fabricio It Solutions ArchitectAlysha on 08/14/2024 Other RENO Calculations for this : No additional RENO calculations have been recorded for this . Health Status Current medications: (Selected) Procedure Well Being Procedure Zimmerman Procedure was completed. movement: present. Heart tones: 130 bpm, reactive, baseline description was normal (110 - 160 bpm), baseline variability moderate, heart rate accelerations were present. Contractions: none. Uterine activity: normal. Non-stress test interpretation: reactive.[facility]10-30-2025 NoteDischarge Instructions Given Worsening The following Patient Education Materials have been given to the patient: ~~ [facility]Mate[facility]10-30-2025 NoteProgress Note-Nurse Patient: INDU JORGENSEN Age: 29 years Sex: Female : 1995 Associated Diagnoses: None Author: Mukul WHITE, Sia Aleman Basic Information No qualifying data available /Para: Para Information: : 3 Para Term: 1 Para : 0 Para Abortions: 1 Para Livin. Include all results : NST results 01/01/2025 11:[address] meade office notified of results on NST/BPP 01/01/2025 10:47 EDT Physician Order nst 01/01/2025 10:44 EDT Monitoring Annotation 98.4 oral temp 01/01/2025 10:39 EDT US Biophysical Profile w/ Non-Str US Biophysical Profile w/ Non-Str (In Progress) 01/01/2025 10:37 EDT Consent for Treatment consent for treatment 12/29/2024 9:06 EDT Discharge Instructions Given Worsening Discharge Instructions Given Worsening 12/29/2024 9:06 EDT Inpatient Patient Summary Inpatient Patient Summary 12/29/2024 9:06 EDT Inpatient Clinical Summary Inpatient Clinical Summary 12/29/2024 8:38 EDT Monitoring Annotation Non-Stress Test 12/29/2024 8:32 EDT Condition at Discharge Stable Pending Diagnostic Test Results None Pharmacy Information [facility] 12/29/2024 8:22 EDT Progress Note-Nurse OB Well Being * 12/29/2024 8:07 EDT Monitoring Annotation Turn to right side 12/29/2024 7:58 EDT Monitoring Annotation Turn to left side 12/29/2024 7:54 EDT Physician Order NST 12/29/2024 7:37 EDT Consent for Treatment CONSENT FOR TREATMENT 12/25/2024 13:09 EDT Progress Note-Nurse OB Well Being * 12/25/2024 11:39 EDT Discharge Instructions Given Worsening Discharge Instructions Given Worsening Inpatient Patient Summary Inpatient Patient Summary 12/25/2024 11:39 EDT Inpatient Clinical Summary Inpatient Clinical Summary 12/25/2024 11:38 EDT Monitoring Annotation NST 12/25/2024 10:42 EDT Consent for Treatment consent for treatment 12/25/2024 10:37 EDT Physician Order nst 12/25/2024 10:33 EDT US Biophysical Profile w/o N-Str US Biophysical Profile w/o N-Str 12/22/2024 9:03 EDT Discharge Instructions Given Worsening Discharge Instructions Given Worsening Inpatient Patient Summary Inpatient Patient Summary 12/22/2024 9:03 EDT Inpatient Clinical Summary Inpatient Clinical Summary 12/22/2024 9:02 EDT Monitoring Annotation Non-Stress Test 12/22/2024 8:57 EDT Physician Order NST 12/22/2024 8:55 EDT Coding Summary. Coding Summary. 12/22/2024 8:50 EDT Progress Note-Nurse OB Well Being * 12/22/2024 7:39 EDT Consent for Treatment CONSENT FOR TREATMENT 12/18/2024 23:59 EDT Coding Summary. Coding Summary. 12/18/2024 14:49 EDT Monitoring Annotation Non-Stress Test 12/18/2024 11:47 EDT Discharge Instructions Given Worsening Discharge Instructions Given Worsening Inpatient Patient Summary Inpatient Patient Summary 12/18/2024 11:47 EDT Inpatient Clinical Summary Inpatient Clinical Summary 12/18/2024 11:47 EDT Coding Summary. Coding Summary. 12/18/2024 11:16 EDT WBC 11.9 E9/L HI RBC 3.6 E12/L LOW HGB 11.2 gm/dL LOW Hct 32.6 % LOW MCV 90.2 fL MCH 31.0 pg MCHC 34.4 gm/dL RDW 15.5 % HI Platelet 312.0 E9/L MPV 7.2 fL Neutro Auto 79.0 % HI Lymph Auto 15.6 % [place] Auto 4.4 % Eos Auto 0.5 % Basophil Auto 0.5 % Neutro Absolute 9.4 E9/L HI Lymph Absolute 1.9 E9/L [place] Absolute 0.5 E9/L Eos Absolute 0.1 E9/L Basophil Absolute 0.1 E9/L 12/18/2024 11:13 EDT Consent for Treatment CONSENT FOR TREATMENT 12/18/2024 11:11 EDT Physician Order PHYSICIAN ORDER 12/18/2024 11:00 EDT Progress Note-Nurse OB Well Being * 12/18/2024 10:41 EDT US Biophysical Profile w/o N-Str US Biophysical Profile w/o N-Str 12/18/2024 10:39 EDT Consent for Treatment consent for treatment 12/18/2024 10:38 EDT Physician Order nst 12/15/2024 8:36 EDT Monitoring Annotation Non-Stress Test 12/15/2024 8:36 EDT Discharge Instructions Given Worsening Discharge Instructions Given Worsening 12/15/2024 8:36 EDT Inpatient Patient Summary Inpatient Patient Summary 12/15/2024 8:36 EDT Inpatient Clinical Summary Inpatient Clinical Summary 12/15/2024 8:30 EDT Coding Summary. Coding Summary. 12/15/2024 8:07 EDT Progress Note-Nurse OB Well Being * 12/15/2024 7:33 EDT Physician Order nst 12/15/2024 7:31 EDT Consent for Treatment CONSENT FOR TREATMENT 12/12/2024 10:03 EDT Monitoring Annotation Non-Stress Test 12/11/2024 11:16 EDT Discharge Instructions Given Worsening Discharge Instructions Given Worsening 12/11/2024 11:16 EDT Inpatient Patient Summary Inpatient Patient Summary 12/11/2024 11:16 EDT Inpatient Clinical Summary Inpatient Clinical Summary 12/11/2024 11:10 EDT Coding Summary. Coding Summary. 12/11/2024 11:08 EDT Progress Note-Nurse OB Well Being * 12/11/2024 10:55 EDT US Biophysical Profile w/ Non-Str US Biophysical Profile w/ Non-Str 12/11/2024 10:45 EDT Consent for (more content not included)...[facility]10-29-2025 History of Present illness Narrative* PATRICIA Nava - 12/31/2024 8:50 AM EDT Reason for Appointment: Patient ID: Indu Jorgensen is a 29 y.o. female who presents [...] Problems Diagnosis Date Noted Bipolar 1 disorder ([facility]) 11/13/2022 Anxiety 12/21/2022 Asthma ([facility]) 12/21/2022 Attention deficit hyperactivity disorder (ADHD), combined type 12/21/2022 Proteinuria 08/03/2010 PTSD (post-traumatic stress disorder) 12/21/2022 Bipolar affective disorder, current episode hypomanic ([facility]) 12/21/2022 Well woman exam with routine gynecological [...] medical problems Infertility counseling Low libido Miscarriage ([facility]) S/P laparoscopy Sciatica, unspecified side Seasonal allergic [...] bipolar disorder Infertility counseling Low libido Miscarriage ([facility]) S/P laparoscopy Sciatica, unspecified side Seasonal allergic rhinitis, unspecified trigger Serous otitis media, unspecified chronicity, unspecified laterality URI (upper respiratory infection) 03/01/2019 [facility] [place] - ER Social History [...] 03/2020 lap, D and C - at [facility] DILATION AND CURETTAGE OF UTERUS [...] Vitals: Estimated body mass index is 22.08 kg/m as calculated from the following: Height as of 04/14/24: 5' 6 . Weight as of 12/16/24: 136 lb 12.8 oz. BP: No LMP recorded. Patient is . ASSESSMENT & PLAN ICD-10-CM 1. Third trimester ([facility]) Z34.93 2. 33 weeks gestation of ([facility]) Z3A.33 POCT urinalysis dipstick manually resulted Return [...] behalf of: PATRICIA Nava documented in this encounterSac-Osage Ho[id number] NoteDischarge Instructions Given Worsening The following Patient Education Materials have been given to the patient: ~~ EducationBet[facility]-2025 NoteProgress Note-Nurse Patient: INUD JORGENSEN Age: 29 years Sex: Female : 1995 Associated Diagnoses: None Author: Nathan WHITE, Quinton Ghosh Basic Information No qualifying data available /Para: Para Information: : 3 Para Term: 1 Para : 0 Para Abortions: 1 Para Livin. Include all results : NST results 12/29/2024 8:07 EDT Monitoring Annotation Turn to right side 12/29/2024 7:58 EDT Monitoring Annotation Turn to left side 12/29/2024 7:54 EDT Physician Order NST 12/29/2024 7:37 EDT Consent for Treatment CONSENT FOR TREATMENT 12/25/2024 13:09 EDT Progress Note-Nurse OB Well Being * 12/25/2024 11:39 EDT Discharge Instructions Given Worsening Discharge Instructions Given Worsening Inpatient Patient Summary Inpatient Patient Summary 12/25/2024 11:39 EDT Inpatient Clinical Summary Inpatient Clinical Summary 12/25/2024 11:38 EDT Monitoring Annotation NST 12/25/2024 10:42 EDT Consent for Treatment consent for treatment 12/25/2024 10:37 EDT Physician Order nst 12/25/2024 10:33 EDT US Biophysical Profile w/o N-Str US Biophysical Profile w/o N-Str 12/22/2024 9:03 EDT Discharge Instructions Given Worsening Discharge Instructions Given Worsening Inpatient Patient Summary Inpatient Patient Summary 12/22/2024 9:03 EDT Inpatient Clinical Summary Inpatient Clinical Summary 12/22/2024 9:02 EDT Monitoring Annotation Non-Stress Test 12/22/2024 8:57 EDT Physician Order NST 12/22/2024 8:50 EDT Progress Note-Nurse OB Well Being * 12/22/2024 7:39 EDT Consent for Treatment CONSENT FOR TREATMENT 12/18/2024 23:59 EDT Coding Summary. Coding Summary. 12/18/2024 14:49 EDT Monitoring Annotation Non-Stress Test 12/18/2024 11:47 EDT Discharge Instructions Given Worsening Discharge Instructions Given Worsening Inpatient Patient Summary Inpatient Patient Summary 12/18/2024 11:47 EDT Inpatient Clinical Summary Inpatient Clinical Summary 12/18/2024 11:47 EDT Coding Summary. Coding Summary. 12/18/2024 11:16 EDT WBC 11.9 E9/L HI RBC 3.6 E12/L LOW HGB 11.2 gm/dL LOW Hct 32.6 % LOW MCV 90.2 fL MCH 31.0 pg MCHC 34.4 gm/dL RDW 15.5 % HI Platelet 312.0 E9/L MPV 7.2 fL Neutro Auto 79.0 % HI Lymph Auto 15.6 % [place] Auto 4.4 % Eos Auto 0.5 % Basophil Auto 0.5 % Neutro Absolute 9.4 E9/L HI Lymph Absolute 1.9 E9/L [place] Absolute 0.5 E9/L Eos Absolute 0.1 E9/L Basophil Absolute 0.1 E9/L 12/18/2024 11:13 EDT Consent for Treatment CONSENT FOR TREATMENT 12/18/2024 11:11 EDT Physician Order PHYSICIAN ORDER 12/18/2024 11:00 EDT Progress Note-Nurse OB Well Being * 12/18/2024 10:41 EDT US Biophysical Profile w/o N-Str US Biophysical Profile w/o N-Str 12/18/2024 10:39 EDT Consent for Treatment consent for treatment 12/18/2024 10:38 EDT Physician Order nst 12/15/2024 8:36 EDT Monitoring Annotation Non-Stress Test 12/15/2024 8:36 EDT Discharge Instructions Given Worsening Discharge Instructions Given Worsening 12/15/2024 8:36 EDT Inpatient Patient Summary Inpatient Patient Summary 12/15/2024 8:36 EDT Inpatient Clinical Summary Inpatient Clinical Summary 12/15/2024 8:30 EDT Coding Summary. Coding Summary. 12/15/2024 8:07 EDT Progress Note-Nurse OB Well Being * 12/15/2024 7:33 EDT Physician Order nst 12/15/2024 7:31 EDT Consent for Treatment CONSENT FOR TREATMENT 12/12/2024 10:03 EDT Monitoring Annotation Non-Stress Test 12/11/2024 11:16 EDT Discharge Instructions Given Worsening Discharge Instructions Given Worsening 12/11/2024 11:16 EDT Inpatient Patient Summary Inpatient Patient Summary 12/11/2024 11:16 EDT Inpatient Clinical Summary Inpatient Clinical Summary 12/11/2024 11:10 EDT Coding Summary. Coding Summary. 12/11/2024 11:08 EDT Progress Note-Nurse OB Well Being * 12/11/2024 10:55 EDT US Biophysical Profile w/ Non-Str US Biophysical Profile w/ Non-Str 12/11/2024 10:45 EDT Consent for Treatment consent for treatment 12/11/2024 10:44 EDT Physician Order nst 12/08/2024 9:08 EDT Monitoring Annotation Non-Stress Test 12/08/2024 8:24 EDT Discharge Instructions Given Worsening Discharge Instructions Given Worsening Inpatient Patient Summary Inpatient Patient Summary 12/08/2024 8:24 EDT Inpatient Clinical Summary Inpatient Clinical Summary 12/08/2024 8:12 EDT Progress Note-Nurse OB Well Being * 12/08/2024 8:07 EDT Mode of Transfer Private vehicle Mode of Discharge Ambulatory Discharge To, OB Home independently OB Triage Discharge Form OB Triage Discharge Form OB Triage Discharge - Text OB Triage Discharge Coding Summary. Coding Summary. Coding Summary. Coding Summary. (In Error) 12/08/2024 8:05 EDT Name of Clinician Contacted Lucina ELLISON, Saundra Peace Reason for Call Other: informed reactive NST Clinician Contacted Via Message left with office staff Information Provided to Clinician reactive tracing, has NST and BP (more content not included)...[facility]10-23-2025 NoteProgress Note-Nurse Patient: INDU JORGENSEN Age: 29 years Sex: Female : 1995 Associated Diagnoses: None Author: Neel WHITE, Amber Basic Information Gestational Age: Gestational Age (EGA) and RENO * Note: EGA calculated as of 12/25/2024 RENO: 02/12/2025 EGA*: 33 weeks Type: Authoritative Method Date: 08/14/2024 Method: Unknown (08/14/2024) Confirmation: Confirmed Description: -- Comments: -- Entered by: Fabricio It Solutions ArchitectAlysha on 08/14/2024 Other RENO Calculations for this : No additional RENO calculations have been recorded for this . VSS 115/60, 86, 16, 36.6 Health Status Current medications: PNV Procedure Well Being Procedure Zimmerman Procedure was completed. movement: present. Heart tones: 135 bpm, monitored for 30 minutes, reactive, baseline description was normal (110 - 160 bpm), baseline variability moderate, heart rate accelerations were present. Contractions: uterine contraction duration 40 seconds, irregular pattern. Contractions per tocodynamometer: irregular ctx, 40-50 sec, not palpable . Uterine activity: normal. Non-stress test interpretation: reactive. Biophysical profile score Score total: 8/8 per US. Impression and Plan Patient Education & Follow-up: movement instruction, Labor warnings. Follow-up: 12/30/[address]10-23-2025 NoteDischarge Instructions Given Worsening The following Patient Education Materials have been given to the patient: [facility] NoteDischarge Instructions Given Worsening The following Patient Education Materials have been given to the patient: ~~ [facility] NoteProgress Note-Nurse Patient: INDU JORGENSEN Age: 29 years Sex: Female : 1995 Associated Diagnoses: None Author: Evonne WHITE, Lexi Genao Basic Information No qualifying data available /Para: Para Information: : 3 Para Term: 1 Para : 0 Para Abortions: 1 Para Livin. Include all results : NST results 12/22/2024 7:39 EDT Consent for Treatment CONSENT FOR TREATMENT 12/18/2024 14:49 EDT Monitoring Annotation Non-Stress Test 12/18/2024 11:47 EDT Discharge Instructions Given Worsening Discharge Instructions Given Worsening Inpatient Patient Summary Inpatient Patient Summary 12/18/2024 11:47 EDT Inpatient Clinical Summary Inpatient Clinical Summary 12/18/2024 11:16 EDT WBC 11.9 E9/L HI RBC 3.6 E12/L LOW HGB 11.2 gm/dL LOW Hct 32.6 % LOW MCV 90.2 fL MCH 31.0 pg MCHC 34.4 gm/dL RDW 15.5 % HI Platelet 312.0 E9/L MPV 7.2 fL Neutro Auto 79.0 % HI Lymph Auto 15.6 % [place] Auto 4.4 % Eos Auto 0.5 % Basophil Auto 0.5 % Neutro Absolute 9.4 E9/L HI Lymph Absolute 1.9 E9/L [place] Absolute 0.5 E9/L Eos Absolute 0.1 E9/L Basophil Absolute 0.1 E9/L 12/18/2024 11:13 EDT Consent for Treatment CONSENT FOR TREATMENT 12/18/2024 11:11 EDT Physician Order PHYSICIAN ORDER 12/18/2024 11:00 EDT Progress Note-Nurse OB Well Being * 12/18/2024 10:41 EDT US Biophysical Profile w/o N-Str US Biophysical Profile w/o N-Str 12/18/2024 10:39 EDT Consent for Treatment consent for treatment 12/18/2024 10:38 EDT Physician Order nst 12/15/2024 8:36 EDT Monitoring Annotation Non-Stress Test 12/15/2024 8:36 EDT Discharge Instructions Given Worsening Discharge Instructions Given Worsening 12/15/2024 8:36 EDT Inpatient Patient Summary Inpatient Patient Summary 12/15/2024 8:36 EDT Inpatient Clinical Summary Inpatient Clinical Summary 12/15/2024 8:07 EDT Progress Note-Nurse OB Well Being * 12/15/2024 7:33 EDT Physician Order nst 12/15/2024 7:31 EDT Consent for Treatment CONSENT FOR TREATMENT 12/12/2024 10:03 EDT Monitoring Annotation Non-Stress Test 12/11/2024 11:16 EDT Discharge Instructions Given Worsening Discharge Instructions Given Worsening 12/11/2024 11:16 EDT Inpatient Patient Summary Inpatient Patient Summary 12/11/2024 11:16 EDT Inpatient Clinical Summary Inpatient Clinical Summary 12/11/2024 11:10 EDT Coding Summary. Coding Summary. 12/11/2024 11:08 EDT Progress Note-Nurse OB Well Being * 12/11/2024 10:55 EDT US Biophysical Profile w/ Non-Str US Biophysical Profile w/ Non-Str 12/11/2024 10:45 EDT Consent for Treatment consent for treatment 12/11/2024 10:44 EDT Physician Order nst 12/08/2024 9:08 EDT Monitoring Annotation Non-Stress Test 12/08/2024 8:24 EDT Discharge Instructions Given Worsening Discharge Instructions Given Worsening Inpatient Patient Summary Inpatient Patient Summary 12/08/2024 8:24 EDT Inpatient Clinical Summary Inpatient Clinical Summary 12/08/2024 8:12 EDT Progress Note-Nurse OB Well Being * 12/08/2024 8:07 EDT Mode of Transfer Private vehicle Mode of Discharge Ambulatory Discharge To, OB Home independently OB Triage Discharge Form OB Triage Discharge Form OB Triage Discharge - Text OB Triage Discharge Coding Summary. Coding Summary. Coding Summary. Coding Summary. (In Error) 12/08/2024 8:05 EDT Name of Clinician Contacted Saundra Verdugo MD Reason for Call Other: informed reactive NST Clinician Contacted Via Message left with office staff Information Provided to Clinician reactive tracing, has NST and BPP on and those results will be called to Dr Meade Response from Clinician See physician orders 12/08/2024 7:56 EDT Physician Order NST 12/08/2024 7:50 EDT Monitoring Annotation doppler adjusted 12/08/2024 7:33 EDT Height/Length Measured 167 cm Height/Length Dosing 167.0 cm Weight Dosing 59.0 kg BSA Measured 1.65 m2 Body Mass Index Measured 21.16 kg/m2 Weight Measured 59 kg Height and Weight Form Height and Weight Form Height and Weight - Text Height and Weight and Allergies 12/08/2024 7:30 EDT Heart Rate Monitored 84 bpm Systolic Blood Pressure 115 mmHg Diastolic Blood Pressure 63 mmHg D-EGA at Documented Date, Time @MISC:5 12/08/2024 7:30 EDT Respiratory Rate 16 br/min Blood Pressure Location Left arm Mean Arterial Pressure, Cuff 80 mmHg 12/08/2024 7:21 EDT Consent for Treatment CONSENT FOR TREATMENT 12/04/2024 14:48 EDT Monitoring Annotation Non-Stress Test 12/04/2024 14:46 EDT Discharge Instructions Given Worsening Discharge Instructions Given Worsening 12/04/2024 14:46 EDT Inpatient Patient Summary Inpatient Patient Summary 12/04/2024 14:46 EDT Inpatient Clinical Summary Inpatient Clinical Summary 12/04/2024 14:44 EDT Condition at Discharge Stable Pending Diagnostic Test Results None Pharmacy Information [facility] 12/04/2024 14:34 EDT Physician Order nst (more content not included)...[facility]10-16-2025 NoteDischarge Instructions Given Worsening The following Patient Education Materials have been given to the patient: ~~ [facility]dee[facility]10-16-2025 NoteProgress Note-Nurse Patient: INDU JORGENSEN Age: 29 years Sex: Female : 1995 Associated Diagnoses: None Author: Zaria Palomo RN Basic Information /Para: Para Information: : 3 Para Term: 1 Para : 0 Para Abortions: 1 Para Livin. Date of study 12/18/2024. Providers Referring provider: Halina Indication for procedure: IVF. Gestation: zimmerman. Maternal assessment movement reported: present. Contractions: none. Leaking fluid: no. Vaginal bleeding no Pain. Vital signs Systolic blood pressure: 123 mmHg. Diastolic blood pressure: 69 mmHg. Pulse: 96 beats per minute. Respirations: 18 per minute. Gestational Age: Gestational Age (EGA) and RENO * Note: EGA calculated as of 12/18/2024 RENO: 02/12/2025 EGA*: 32 weeks Type: Authoritative Method Date: 08/14/2024 Method: Unknown (08/14/2024) Confirmation: Confirmed Description: -- Comments: -- Entered by: Fabricio It Solutions ArchitectAlysha on 08/14/2024 Other RENO Calculations for this : No additional RENO calculations have been recorded for this . Health Status Current medications: (Selected) Documented Medications Documented Iron Chews: 15 mg, Oral, Daily, Refills(s) [address] Tab: 20 mg = 1 tab(s), Oral, Refills(s) 0 19 ([place]): See Instructions, Refill(s) 0, Oral SEROquel 50 mg ER Tab: 100 mg = 2 tab(s), Oral, Bedtime, Refills(s) 0 Procedure Well Being Procedure Zimmerman Procedure was completed. movement: present. Heart tones: 130 bpm, monitored for 25 minutes, baseline description was normal (110 - 160 bpm), baseline variability moderate, heart rate accelerations were present. Contractions: none. Contractions per tocodynamometer: absent. Uterine activity: normal. Non-stress test interpretation: reactive. Impression and Plan Patient Education & Follow-up: movement instruction. Follow-up: message left on Dr. Meade's nurse line that nst was reactive and BPP was 8/8.[facility]10-14-2025 History of Present illness Narrative* Shari Gomez, AMERICAN SIGN LANGUAGE TEACHER - 12/16/2024 9:30 AM EDT Reason for Appointment: Patient ID: Indu Jorgensen is a 29 y.o. female who presents [...] 12/21/2022 Bipolar affective disorder, current episode hypomanic (HCC) 12/21/2022 Well woman exam with routine gynecological [...] medical problems Infertility counseling Low libido Miscarriage ([facility]) S/P laparoscopy Sciatica, unspecified side Seasonal allergic [...] nursing note reviewed. Exam conducted with a exterminator helper termite present. Vitals: Estimated body mass index is 22.08 kg/m as calculated from the following: Height as of 04/14/24: 5' 6 . Weight as of this encounter: 136 lb 12.8 oz. BP: 108/52 No LMP recorded. Patient is . ASSESSMENT & PLAN ICD-10-CM 1. Third trimester ([facility]) Z34.93 2. 31 weeks gestation of ([facility]) Z3A.31 POCT urinalysis dipstick manually resulted 3. Encounter for in vitro fertilization Z31.83 OB follow up transabdominal approach Return OB: [...] bipolar disorder Infertility counseling Low libido Miscarriage ([facility]) S/P laparoscopy Sciatica, unspecified side Seasonal allergic rhinitis, unspecified trigger Serous otitis media, unspecified chronicity, unspecified laterality URI (upper respiratory infection) 03/01/2019 [facility] - ER [3] Family History Problem Relation [...] 03/2020 lap, D and C - at [facility] DILATION AND CURETTAGE OF UTERUS 03/07/2013 ; 08/13/2015 DILATION AND CURETTAGE OF UTERUS 10/27/2022 EGD 11/2023 HYSTEROSCOPY 06/12/2016 Laproscopy/hysterscopy documented in this encounterSac-Os[facility] [id number] Miscellaneous Notes* Telephone Encounter - Carolann Nolen RN - 12/15/2024 9:32 AM EDT Left VM at office requesting a call to Dr. Ortiz to briefly discuss the patient. [facility] Telephone encounter Note* Telephone Encounter - Carolann Nolen RN - 12/15/2024 9:32 AM EDT Left VM at office requesting a call to Dr. Ortiz to briefly discuss the patient. [facility]10-13-2025 NoteDischarge Instructions Given Worsening The following Patient Education Materials have been given to the patient: ~~ [facility]-2025 NoteProgress Note-Nurse Patient: INDU JORGENSEN Age: 29 years Sex: Female : 1995 Associated Diagnoses: None Author: Neel WHITE, Amber Basic Information Gestational Age: Gestational Age (EGA) and RENO * Note: EGA calculated as of 12/15/2024 RENO: 02/12/2025 EGA*: 31 weeks 4 days Type: Authoritative Method Date: 08/14/2024 Method: Unknown (08/14/2024) Confirmation: Confirmed Description: -- Comments: -- Entered by: Fabricio It Solutions ArchitectAlysha on 08/14/2024 Other RENO Calculations for this : No additional RENO calculations have been recorded for this . BP 109/64, 100, 16, 36.7 Health Status Current medications: Seroquel 50mg daily, PNV daily, Pantoprazole 20mg daily Procedure Well Being Procedure Zimmerman Procedure was completed. movement: present. Heart tones: 145 bpm, monitored for 37 minutes, reactive, baseline description was normal (110 - 160 bpm), baseline variability moderate, heart rate accelerations were present. Contractions. Contractions per tocodynamometer: strength by palpation (non-palpable, Pt reports occasionally feeling some tightening.), irritability noted. 20-60 seconds. Uterine activity: normal. Non-stress test interpretation: reactive. Impression and Plan Patient Education & Follow-up: movement instruction, Labor warnings, Hydration instructions, Pt instructed to increase fluids d/t vomitting this morning. Instructed to call if irritability worsens.. Follow-up: 12/18/2024 , Pt scheduled to return on for another NST and BPP.[facility]10-09-2025 NoteDischarge Instructions Given Worsening The following Patient Education Materials have been given to the patient: ~~ [facility]10-09-2025 NoteProgress Note-Nurse Patient: INDU JORGENSEN Age: 29 years Sex: Female : 1995 Associated Diagnoses: None Author: Abbey Cotton RN Basic Information /Para: Para Information: : 3 Para Term: 1 Para : 0 Para Abortions: 1 Para Livin. Include all results : NST results 12/11/2024 10:55 EDT US Biophysical Profile w/ Non-Str US Biophysical Profile w/ Non-Str(In Progress) 12/11/2024 10:45 EDT Consent for Treatment consent for treatment 12/11/2024 10:44 EDT Physician Order nst 12/08/2024 9:08 EDT Monitoring Annotation Non-Stress Test 12/08/2024 8:24 EDT Discharge Instructions Given Worsening Discharge Instructions Given Worsening Inpatient Patient Summary Inpatient Patient Summary 12/08/2024 8:24 EDT Inpatient Clinical Summary Inpatient Clinical Summary 12/08/2024 8:12 EDT Progress Note-Nurse OB Well Being * 12/08/2024 8:07 EDT Mode of Transfer Private vehicle Mode of Discharge Ambulatory Discharge To, OB Home independently OB Triage Discharge Form OB Triage Discharge Form OB Triage Discharge - Text OB Triage Discharge 12/08/2024 8:05 EDT Name of Clinician Contacted Saundra Verdugo MD Reason for Call Other: informed reactive NST Clinician Contacted Via Message left with office staff Information Provided to Clinician reactive tracing, has NST and BPP on and those results will be called to Dr Meade Response from Clinician See physician orders 12/08/2024 7:56 EDT Physician Order NST 12/08/2024 7:50 EDT Monitoring Annotation doppler adjusted 12/08/2024 7:33 EDT Height/Length Measured 167 cm Height/Length Dosing 167.0 cm Weight Dosing 59.0 kg BSA Measured 1.65 m2 Body Mass Index Measured 21.16 kg/m2 Weight Measured 59 kg Height and Weight Form Height and Weight Form Height and Weight - Text Height and Weight and Allergies 12/08/2024 7:30 EDT Heart Rate Monitored 84 bpm Systolic Blood Pressure 115 mmHg Diastolic Blood Pressure 63 mmHg D-EGA at Documented Date, Time @MISC:5 12/08/2024 7:30 EDT Respiratory Rate 16 br/min Blood Pressure Location Left arm Mean Arterial Pressure, Cuff 80 mmHg 12/08/2024 7:21 EDT Consent for Treatment CONSENT FOR TREATMENT 12/04/2024 14:48 EDT Monitoring Annotation Non-Stress Test 12/04/2024 14:46 EDT Discharge Instructions Given Worsening Discharge Instructions Given Worsening 12/04/2024 14:46 EDT Inpatient Patient Summary Inpatient Patient Summary 12/04/2024 14:46 EDT Inpatient Clinical Summary Inpatient Clinical Summary 12/04/2024 14:44 EDT Condition at Discharge Stable Pending Diagnostic Test Results None Pharmacy Information [facility] 12/04/2024 14:34 EDT Physician Order nst 12/04/2024 14:33 EDT Consent for Treatment 12/04/2024 14:24 EDT Progress Note-Nurse OB Well Being * 12/04/2024 14:15 EDT Name of Clinician Contacted Saundra Verdugo MD Reason for Call Other: informed dr verdugo of reactive nst, BPP was 8/8, the IVETT was 10.8 and the ptis 30 wks and will be back on Sunday12/08/24 for her next NST Clinician Contacted Via Personal communication via phone Response from Clinician See physician orders 12/04/2024 13:34 EDT US Biophysical Profile w/ Non-Str US Biophysical Profile w/ Non-Str 12/01/2024 13:51 EDT Coding Summary. Coding Summary. 12/01/2024 9:33 EDT Discharge Instructions Given Worsening Discharge Instructions Given Worsening 12/01/2024 9:33 EDT Inpatient Patient Summary Inpatient Patient Summary 12/01/2024 9:33 EDT Inpatient Clinical Summary Inpatient Clinical Summary 12/01/2024 9:10 EDT Name of Clinician Contacted Lucina ELLISON, Saundra Peace Clinician Contacted Via Personal communication via phone Information Provided to Clinician updated net developer consultant of reactive nst. 12/01/2024 8:40 EDT Monitoring Annotation Non-Stress Test 12/01/2024 8:35 EDT Progress Note-Nurse OB Well Being * 12/01/2024 8:21 EDT Physician Order nst 12/01/2024 8:18 EDT Barriers to Learning None evident Ed- Monitoring Verbalizes understanding Ed- Monitoring Assessment Verbalizes understanding Ed- Movement Monitoring Verbalizes understanding Ed-Plan of Care Verbalizes understanding Teaching Method Explanation Mode of Transfer Private vehicle Mode of Discharge Ambulatory Discharge To, OB Home independently OB Triage Discharge Form OB Triage Discharge Form OB Triage Discharge - Text OB Triage Discharge Coding Summary. Coding Summary. 12/01/2024 8:00 EDT Monitoring Annotation left tilt 12/01/2024 7:40 EDT Monitoring Annotation audible movement. 12/01/2024 7:40 EDT Heart Rate Monitored 93 bpm Systolic Blood Pressure 117 mmHg Diastolic Blood Pressure 71 mmHg D-EGA at Documented Date, Time @MISC:5 12/01/2024 7:40 EDT Respiratory Rate 16 br/min Blood Pressure Location Left arm Mean Arterial Pressure, Cuff 86 mmHg Oxygen Therapy Room air 12/01/2024 7:30 EDT Consent for Tr (more content not included)...[facility]10-07-2025 History of Present illness Narrative* Mario Alberto Ortiz MD - 12/09/2024 11:30 AM EDT Video Visit via Real-time Synchronous Audiovisual Provider Location: [facility] AT [address] [id number] Patient Location: Patient's home Patient Location Offender Job Retention Specialist: None Video Visit Consent Statement: I discussed risks, benefits, and alternatives of a real-time synchronous audiovisual consultation with the patient (and any accompanying persons) including the risks that the patient's personal health details and medical records will be discussed over real-time, synchronous, interactive video/audio/telecommunication technology, the visit will not be recorded withoutthe express consent of both the provider and the patient, and that there are some limitations compared to [id number] evaluations. We elected to proceed. REASON FOR OFFICE VISIT: multiple medical issues HISTORY OF PRESENT ILLNESS: Indu Jorgensen is a pleasant 29 y.o. [id number] at 30w5d due on EstimatedDate of Delivery: 02/12/25 . The patient denies abdominal pain, vaginal bleeding, SOB or chest pain. . 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 She follows with the psychiatry. She is still has some nausea and vomiting but she is only taking Protonix and does not want to take antiemetics. She has recently seen her psychiatrist however her concerns were not addressed. She denies any suicide or homicidal ideation. She is concerned about her arben though. Her significant other left the house. IVF Suspected right pelvic kidney Circumvallate placenta Nausea vomiting and eating disorder Anxiety and bipolar disorder - she is currently on olanzapine and quetiapine prn.\ Follows with Dr.Carlos Molina No thoughts of self-harm. 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 As needed., Disp: , Rfl: busPIRone (BUSPAR) 5 mg tablet, Take 1 tablet (5 mg total) by mouth 3 (three) times a day., Disp: ,Rfl: cholecalciferol 1,000 units tablet, Take 1 tablet (1,000 Units total) by mouth in the morning. (Patient not taking: Reported on 09/02/2024), Disp: , Rfl: doxylamine (UNISOM) 25 mg tablet, Take 1 tablet (25 mg total) by mouth nightly as needed for sleep., Disp: 90 tablet, Rfl: 1 meclizine (ANTIVERT) 25 mg tablet, Chew 1 tablet (25 mg total) and swallow 3 (three) times a day asneeded for dizziness or nausea., Disp: 30 tablet, Rfl: 0 OLANZapine (ZyPREXA) 2.5 mg tablet, Take 1 tablet (2.5 mg total) by mouth every 8 (eight) hours as needed., Disp: , Rfl: omega-3 acid ethyl esters (LOVAZA) 1 gram capsule, Take 2 capsules (2 g total) by mouth in the morning and 2 capsules (2 g total) before bedtime. (Patient not taking: Reported on 09/02/2024), Disp: , Rfl: pantoprazole (PROTONIX) 20 mg EC tablet, TAKE 1 TABLET(20 MG) BY MOUTH IN THE MORNING, Disp: 90 tablet, Rfl: 0 VIT 28-KSVL-VPSYF-DHA ORAL, Take by mouth., Disp: , Rfl: pyridoxine, vitamin B6, (B-6) 25 mg tablet, Take 1 tablet (25 mg total) by mouth 3 (three) times a day., Disp: 90 tablet, Rfl: 1 QUEtiapine (SEROquel) 50 mg tablet, Take 1 tablet (50 mg total) by mouth in the morning and 1 tablet (50 mg total) before bedtime., Disp: , Rfl: simethicone (MYLICON) 80 mg chewable tablet, Chew 1 tablet (80 mg total) and swallow every 6 (six) hours as needed for flatulence., Disp: 30 tablet, Rfl: 1 sucralfate (CARAFATE) 100 mg/mL suspension, Take 10 mL (1,000 mg total) by mouth in the morning and10 mL (1,000 mg total) at noon and 10 mL (1,000 mg total) in the evening and 10 mL (1,000 mg total)before bedtime. (Patient not taking: Reported on 09/02/2024), Disp: , Rfl: thiamine HCl (VITAMIN B-1) 50 mg tablet, Take 2 tablets (100 mg total) by mouth in the morning., Disp: 90 tablet, Rfl: 1 Past Medical History: Diagnosis Date Abnormal uterine bleeding (AUB) ADHD (attention deficit hyperactivity disorder) Anovulation Anxiety Asthma Bipolar 1 disorder (CMS-HCC) Chronic fatigue Chronic rhinitis Chronic vaginitis Depression Endometriosis Female infertility Myalgia Proteinuria PTSD (post-traumatic stress disorder) REVIEW OF SYSTEMS: Head and Neck: Negative for any dizziness and headaches. Cardiovascular and Respiratory System: Denies any chest pain, shortness of breath, and coughing. Abdominal and System: Denies any abdominal pain, nausea, vomiting, vaginal bleeding, and vaginal discharge PHYSICAL EXAMINATION: LMP 05/08/2024 . Video visit. Alert and orientated MRI abdomen 10/07/2024 IMPRESSION: Normal noncontrast MRI/MRCP of the abdomen with no hiatal hernia demonstrated. REVIEW OF ULTRASOUND. Single live intrauterine at 30w 0d. Normal growth. EFW measures at the 62%, AC measures at the 93%. Amniotic fluid MVP measures 7.2 cm. Known circumvallate placenta is again visualized. Known right pelvic kidney again visualized. COUNSELING Ultrasound was reviewed with the patient. We had a long conversation regarding her mental health and the importance to follow with her psychiatrist. She denies any thoughts of harming herself or others. Strategies to improve her eating and food choices were reviewed again. The patient declines inpatient psychiatric evaluation. She also declined seeing a candy catcher again. She gave me permission to discuss her case with her psychiatrist and she provided me his name this time. RECOMMENDATION: - to continue to follow with her psychiatrist - follow-up in 4 weeks for interval growth - testing to be initiated at 32 weeks weekly NST and DVP through primary OB - Delivery is recommended at 39 weeks or sooner if clinically indicated - please follow-up on her iron-deficiency Return precautions were given. We will reach to Dr. Molina to further discuss her case. I attempted to call him no answer and voicemail left requesting call back from Dr. Molina. Thank you for allowing me to participate in [facility]. If there are any questions, please do not hesitate to call me. Sincerely, MARIO ALBERTO ORTIZ MD documented in this encounterMer[facility]25 NoteDischarge Instructions Given Worsening The following Patient Education Materials have been given to the patient: ~~ [facility] NoteProgress Note-Nurse Patient: INDU JORGENSEN Age: 29 years Sex: Female : 1995 Associated Diagnoses: None Author: Gay Matias RN Basic Information Vital Signs 12/08/2024 7:30 EDT Heart Rate Monitored 84 bpm Systolic Blood Pressure 115 mmHg Diastolic Blood Pressure 63 mmHg 12/08/2024 7:30 EDT Respiratory Rate 16 br/min Blood Pressure Location Left arm Mean Arterial Pressure, Cuff 80 mmHg Date of study 12/08/2024. Providers Referring provider: Halina Dorsey provider: lucina Indication for procedure: IVF. Gestation: zimmerman. Maternal assessment movement reported: present. Contractions: x1. Leaking fluid: no. Vaginal bleeding no Pain: 0 / 10. Vital signs Systolic blood pressure: 115 mmHg. Diastolic blood pressure: 63 mmHg. Pulse: 84 beats per minute. Health Status Current medications: (Selected) Prescriptions Prescribed Protonix 40 mg Tab-DR: 40 mg = 1 tab(s), Oral, Daily, # 30 tab(s), Refills(s) 0, Pharmacy: [facility] #[id number], 167, cm, 06/19/24 10:50:00 EDT, Height/Length Dosing, 48.9, kg, 06/19/24 10:50:00 EDT, Weight Dosing Documented Medications Documented Iron Chews: 15 mg, Oral, Daily, Refills(s) 0 19 ([place]): See Instructions, Refill(s) 0, Oral SEROquel 50 mg ER Tab: 50 mg = 1 tab(s), Oral, BID, Refills(s) 0 olanzapine 2.5 mg Tab: 2.5 mg = 1 tab(s), Oral, q6hr, Refills(s) 0 Procedure Well Being Procedure Zimmerman Procedure was completed. movement: present. Heart tones: 135 bpm, monitored for 33 minutes, baseline description was normal (110 - 160 bpm), baseline variability moderate, heart rate accelerations were present. Contractions: x1. Uterine activity: normal. Non-stress test interpretation: reactive. Impression and Plan Patient Education & Follow-up: movement instruction.[facility]10-02-2025 NoteDischarge Instructions Given Worsening The following Patient Education Materials have been given to the patient: ~~ EducationMaterialMercy Health St. [facility]10-02-2025 NoteProgress Note-Nurse Patient: INDU JORGENSEN Age: 29 years Sex: Female : 1995 Associated Diagnoses: None Author: Sayda Montanez RN Basic Information Date of study 12/04/2024. Providers Referring provider: Halina Dorsey provider: lucina Indication for procedure: IVF, Circumvallate placenta, Hx of abruption. Gestation: zimmerman. Maternal assessment movement reported: present. Contractions: occasional . Leaking fluid: no. Vaginal bleeding no Pain: 0 / 10. Vital signs Systolic blood pressure: 127 mmHg. Diastolic blood pressure: 70 mmHg. Pulse: 87 beats per minute. Respirations: 16 per minute. Temperature: 98.2 degrees Fahrenheit. Gestational Age: Gestational Age (EGA) and RENO * Note: EGA calculated as of 12/04/2024 RENO: 02/12/2025 EGA*: 30 weeks Type: Authoritative Method Date: 08/14/2024 Method: Unknown (08/14/2024) Confirmation: Confirmed Description: -- Comments: -- Entered by: Fabricio It Solutions ArchitectAlysha on 08/14/2024 Other RENO Calculations for this : No additional RENO calculations have been recorded for this . Procedure Well Being Procedure Zimmerman Procedure was completed. movement: present. Heart tones: 140 bpm, monitored for 43 minutes, reactive, baseline description was normal (110 - 160 bpm), baseline variability moderate, heart rate accelerations were present. lie: longitudinal. Contractions: occasional, irregular pattern. Contractions per tocodynamometer: strength by palpation non-palpable, x2. Uterine activity: normal. Non-stress test interpretation: reactive. Biophysical profile score Breathin. Movement: 2. Tone: 2. Non-stress test: 2. Amniotic fluid: 2. Score total: 10 . Impression and Plan Patient Education & Follow-up: movement instruction. Follow-up: 12/08/[address]09-30-2025 History of Present illness Narrative* Dolores Paulette, RACHAEL - 12/02/2024 8:50 AM EDT Reason for Appointment: Patient ID: Indu Jorgensen is a 29 y.o. female who presents [...] 1 disorder (HCC) 11/13/2022 Anxiety 12/21/2022 Asthma ([facility]) 12/21/2022 Attention deficit hyperactivity disorder (ADHD), combined type 12/21/2022 Proteinuria 08/03/2010 PTSD (post-traumatic stress disorder) 12/21/2022 Bipolar affective disorder, current episode hypomanic (HCC) 12/21/2022 Well woman exam with routine gynecological [...] medical problems Infertility counseling Low libido Miscarriage ([facility]) S/P laparoscopy Sciatica, unspecified side Seasonal allergic [...] bipolar disorder Infertility counseling Low libido Miscarriage ([facility]) S/P laparoscopy Sciatica, unspecified side Seasonal allergic rhinitis, unspecified trigger Serous otitis media, unspecified chronicity, unspecified laterality URI (upper respiratory infection) 03/01/2019 [facility] [place] [facility] - ER Social History [...] 03/2020 lap, D and C - at [facility] DILATION AND CURETTAGE OF UTERUS 03/07/2013 ; 08/13/2015 DILATION AND CURETTAGE OF UTERUS 10/27/2022 EGD 11/2023 HYSTEROSCOPY 06/12/2016 Laproscopy/hysterscopy REVIEW OF SYSTEMS Review of Systems: Review of Systems Constitutional: Negative. HENT: Negative. Eyes: Negative. Respiratory: Negative. Cardiovascular: Negative. Gastrointestinal: Positive for nausea. Patient complains of nausea and states I can't take any medications for this because they make meconstipated Genitourinary: Negative. Musculoskeletal: Negative. Skin: Negative. Neurological: [...] nursing note reviewed. Exam conducted with a exterminator helper termite present. Vitals: Estimated body mass index is 20.98 kg/m as calculated from the following: Height as of 04/14/24: 5' 6 . Weight as of this encounter: 130 lb. BP: 120/62 No LMP recorded. Patient is . ASSESSMENT & PLAN ICD-10-CM 1. Third trimester ([facility]) Z34.93 POCT urinalysis dipstick manually resulted 2. 29 weeks gestation of ([facility]) Z3A.29 3. Bipolar 1 disorder ([facility]) F31.9 4. PTSD (post-traumatic stress disorder) F43.10 Return OB: Patient presents today for a routine obstetrics appointment. Patient is currently 29w5d . Patient states she is doing well but has complaints of being tired due to current and complaints of nausea. We discussed her 2 lbs weight loss since our last appointment and discussed medication options but the patient has declined. She is going to attempt to obtain protein either in liquidform or foods that are rich in protein that might not cause nausea. 6 small meals might be beneficial as well. Patient continues to consult MFM and has ultrasound scheduled this . Patient hasverbalizes frequent movement. labor precautions was discussed/given and patient was in structed to perform kick counts three times a day. Orders Placed This Encounter Procedures CBC and differential POCT urinalysis dipstick manually resulted Follow Up: Patient is to return to office in 2 week for routine OB appointment. Documented by Dolores Caldwell NP on behalf of: Dolores Caldwell NP documented in this encounterSac-Osage [id number] NoteDischarge Instructions Given Worsening The following Patient Education Materials have been given to the patient: ~~ [facility]09-29-2025 NoteProgress Note-Nurse Patient: INDU JORGENSEN Age: 29 years Sex: Female : 1995 Associated Diagnoses: None Author: Magalie Harden RN Basic Information Vital Signs (last 24 hrs) Last Charted Heart Rate Monitored 93 bpm (DEC 01 07:40) SBP 117 mmHg (DEC 01 07:40) DBP 71 mmHg (DEC 01 07:40) /Para: Para Information: : 3 Para Term: 1 Para : 0 Para Abortions: 1 Para Livin. Date of study 12/01/2024. Providers Obstetric resident: Dr. Halina Dorsey provider: Dr. Verdugo Indication for procedure: circumvallate placenta, hyperemesis, esophageal spasm, fetus has pelvic kidney right side, IVF. Gestation: zimmerman. Maternal assessment movement reported: present. Contractions: none. Leaking fluid: no. Vaginal bleeding no Pain: 0 / 10. Gestational Age: Gestational Age (EGA) and RENO * Note: EGA calculated as of 12/01/2024 RENO: 02/12/2025 EGA*: 29 weeks 4 days Type: Authoritative Method Date: 08/14/2024 Method: Unknown (08/14/2024) Confirmation: Confirmed Description: -- Comments: -- Entered by: Fabricio It Solutions ArchitectAlysha on 08/14/2024 Other RENO Calculations for this : No additional RENO calculations have been recorded for this . Procedure Well Being Procedure Zimmerman Procedure was completed. movement: present. Heart tones: 135 bpm, monitored for 35 minutes, reactive, baseline description was normal (110 - 160 bpm), baseline variability moderate, heart rate accelerations were present. Contractions: none. Contractions per tocodynamometer: absent. Uterine activity: normal. Non-stress test interpretation: reactive. Impression and Plan Patient Education & Follow-up: movement instruction. Follow-up: 12/02/[address]09-26-2025 NoteDischarge Instructions Given Worsening The following Patient Education Materials have been given to the patient: ~~ EducationMateriSt. [facility]09-25-2025 NoteProgress Note-Nurse Patient: INDU JORGENSEN Age: 29 years Sex: Female : 1995 Associated Diagnoses: None Author: Sayda Montanez RN Basic Information /Para: Para Information: : 3 Para Term: 1 Para : 0 Para Abortions: 1 Para Livin. Date of study 11/27/2024. Providers Referring provider: halina Dorsey provider: lucina Indication for procedure: Circumvallet placent, IVF, baby has pelvic kidney (right side). Gestation: zimmerman. Maternal assessment movement reported: present. Contractions: none. Leaking fluid: no. Vaginal bleeding no Pain: 0 / 10. Vital signs Systolic blood pressure: 117 mmHg. Diastolic blood pressure: 75 mmHg. Pulse: 83 beats per minute. Respirations: 18 per minute. Temperature: 98.1 degrees Fahrenheit. Gestational Age: Gestational Age (EGA) and RENO * Note: EGA calculated as of 11/27/2024 RENO: 02/12/2025 EGA*: 29 weeks Type: Authoritative Method Date: 08/14/2024 Method: Unknown (08/14/2024) Confirmation: Confirmed Description: -- Comments: -- Entered by: Fabricio It Solutions ArchitectAlysha on 08/14/2024 Other RENO Calculations for this : No additional RENO calculations have been recorded for this . Procedure Well Being Procedure Zimmerman Procedure was completed. movement: present. Heart tones: 140 bpm, monitored for 22 minutes, reactive, baseline description was normal (110 - 160 bpm), baseline variability moderate, heart rate accelerations were present. Contractions: irritability. Contractions per tocodynamometer: strength by palpation non-palpable. Uterine activity: normal. Non-stress test interpretation: reactive. Impression and Plan Patient Education & Follow-up: movement instruction. Follow-up: 12/01/2024 .[facility]09-22-2025 NoteDischarge Instructions Given Worsening The following Patient Education Materials have been given to the patient: ~~ EducationMaterialMercy Health St. [facility]09-22-2025 NoteProgress Note-Nurse Patient: INDU JORGENSEN Age: 29 years Sex: Female : 1995 Associated Diagnoses: None Author: Polly WHITE, Gay Basic Information Vital Signs 11/24/2024 7:44 EDT Heart Rate Monitored 78 bpm Systolic Blood Pressure 112 mmHg Diastolic Blood Pressure 57 mmHg LOW 11/24/2024 7:44 EDT Respiratory Rate 14 br/min Mean Arterial Pressure, Cuff 75 mmHg 11/24/2024 7:30 EDT Blood Pressure Location Left arm Health Status Current medications: (Selected) Prescriptions Prescribed Boost/Ensure: Boost/Ensure, 8oz BID x 2-4 weeks. Disp #24 (twenty-four), BIDAC, Print Requisition, Supply Carafate 1 g/10 mL Susp-Oral: 1 gm = 10 mL, Oral, QIDACHS, # 400 mL, Refills(s) 0, Pharmacy: [facility] #[id number], 167, cm, 06/19/24 10:50:00 EDT, Height/Length Dosing, 48.9, kg, 06/19/24 10:50:00 EDT, Weight Dosing MiraLax 3350 Oral Pwdr for Recon 249 gram: 17 gram, Oral, Daily, # 527 gram, Refills(s) 0, Pharmacy: [facility] #[id number], 168, cm, 09/15/19 7:03:00 EDT, Height/Length Measured, 52, kg, 09/15/19 7:03:00 EDT, Weight Measured Protonix 40 mg Tab-DR: 40 mg = 1 tab(s), Oral, Daily, # 30 tab(s), Refills(s) 0, Pharmacy: [facility] #[id number], 167, cm, 06/19/24 10:50:00 EDT, Height/Length Dosing, 48.9, kg, 06/19/24 10:50:00 EDT, Weight Dosing Reglan 5 mg Tab: 5 mg = 1 tab(s), Oral, QID, # 120 tab(s), Refills(s) 0, Pharmacy: [facility] #[id number], 167, cm, 06/19/24 10:50:00 EDT, Height/Length Dosing, 48.9, kg, 06/19/24 10:50:00 EDT, Weight Dosing Zofran ODT 4 mg Tab-Dis: 4 mg = 1 tab(s), Oral, q6hr, # 60 tab(s), Refills(s) 0, [id number], 167, cm, 06/19/24 10:50:00 EDT, Height/Length Dosing, 48.9, kg, 06/19/24 10:50:00 EDT, Weight Dosing famotidine 20 mg Tab: 20 mg = 1 tab(s), Oral, BID, # 60 tab(s), Refills(s) 0, [id number], 167, cm, 06/19/24 10:50:00 EDT, Height/Length Dosing, 48.9, kg, 06/19/24 10:50:00 EDT, Weight Dosing naloxone 4 mg/0.1 mL nasal spray: 4 mg, Nasal, As Directed, for suspected overdose symptoms, # 1 kit(s), Refills(s) 0, Pharmacy: [facility], 167, cm, 06/19/24 10:50:00 EDT, Height/Length Dosing, 48.9, kg, 06/19/24 10:50:00 EDT, Weight Dosing oxyCODONE 5 mg Cap: 5 mg = 1 cap(s), Oral, q12hr, PRN for pain, # 6 cap(s), Refills(s) 0, Pharmacy:[facility], 167, cm, 06/19/24 10:50:00 EDT, Height/Length Dosing, 48.9, kg, 06/19/24 10:50:00 EDT, Weight Dosing Documented Medications Documented Fish Oil: 500 mg, Oral, Daily, Refill(s) 0 19 ([place]): See Instructions, Refill(s) 0, Oral SEROquel 50 mg ER Tab: 50 mg = 1 tab(s), Oral, BID, Refills(s) 0 Zofran 8 mg Tab: 8 mg = 1 tab(s), Oral, q8hr, Refills(s) 0 olanzapine 2.5 mg Tab: 2.5 mg = 1 tab(s), Oral, q6hr, Refills(s) 0 Procedure Well Being Procedure Zimmerman Procedure was completed. movement: present. Heart tones: 130 bpm, monitored for 28 minutes, baseline description was normal (110 - 160 bpm), baseline variability moderate, heart rate accelerations were present. Contractions per tocodynamometer: absent. Uterine activity: normal. Non-stress test interpretation: reactive. Impression and Plan Patient Education & Follow-up: movement instruction. Follow-up: 11/27/[address]09-18-2025 NoteProgress Note-Nurse Patient: INDU JORGENSEN Age: 29 years Sex: Female : 1995 Associated Diagnoses: None Author: Dereck RN, Magalie Maradiaga Basic Information Vital Signs Vital Signs (last 24 hrs) Last Charted Temp Oral 36.8 DegC (NOV 20 13:48) Heart Rate Monitored 97 bpm (NOV 20 13:48) SBP 125 mmHg (NOV 20 13:48) DBP 68 mmHg (NOV 20 13:48) /Para: Para Information: : 3 Para Term: 1 Para : 0 Para Abortions: 1 Para Livin. Date of study 11/20/2024. Providers Obstetric resident: Dr. Meade Indication for procedure: circumvallate placenta, pelvic kidney right side fetus . Gestation: zimmerman. Maternal assessment movement reported: present. Contractions: none. Leaking fluid: no. Vaginal bleeding no Pain: 0 / 10. Procedure Well Being Procedure Zimmerman Procedure was completed. movement: present. Heart tones: 145 bpm, monitored for 27 minutes, reactive, baseline description was normal (110 - 160 bpm), baseline variability moderate, heart rate accelerations were present. Contractions: none. Contractions per tocodynamometer: absent. Uterine activity: normal. Non-stress test interpretation: reactive. Impression and Plan Patient Education & Follow-up: movement instruction.[facility]09-16-2025 History of Present illness Narrative* Shari Gomez LPN - 11/18/2024 8:30 AM EDT Reason for Appointment: Patient ID: Indu Jorgensen is a 29 y.o. female who presents [...] Problems Diagnosis Date Noted Bipolar 1 disorder ([facility]) 11/13/2022 Anxiety 12/21/2022 Asthma ([facility]) 12/21/2022 Attention deficit hyperactivity disorder (ADHD), combined type 12/21/2022 Proteinuria 08/03/2010 PTSD (post-traumatic stress disorder) 12/21/2022 Bipolar affective disorder, current episode hypomanic ([facility]) 12/21/2022 Well woman exam with routine gynecological [...] medical problems Infertility counseling Low libido Miscarriage ([facility]) S/P laparoscopy Sciatica, unspecified side [...] bipolar disorder Infertility counseling Low libido Miscarriage ([facility]) S/P laparoscopy Sciatica, unspecified side Seasonal allergic rhinitis, unspecified trigger Serous otitis media, unspecified chronicity, unspecified laterality URI (upper respiratory infection) 03/01/2019 [facility] [place] - ER Social History [...] 03/2020 lap, D and C - at [facility] DILATION AND CURETTAGE OF UTERUS [...] nursing note reviewed. Exam conducted with a exterminator helper termite present. Vitals: Estimated body mass index is 21.43 kg/m as calculated from the following: Height as of 04/14/24: 5' 6 . Weight as of this encounter: 132 lb 12.8 oz. BP: 120/64 No LMP recorded. Patient is . ASSESSMENT & PLAN ICD-10-CM 1. 27 weeks gestation of ([facility]) Z3A.27 POCT urinalysis dipstick manually resulted 2. Second trimester ([facility]) Z34.92 POCT urinalysis dipstick manually resulted 3. Hyperemesis of ([facility]) O21.0 4. resulting from in vitro fertilization in second trimester ([facility]) O09.812 US biophysical profile w non stress test 5. Breech presentation, single or unspecified fetus ([facility]) O32.1XX0 Return OB: Patient presents today for a routine obstetrics appointment. Patient is currently 27w5d . Patient states she is doing well but has complaints of being tired due to current . Patient has verbalizes frequent movement. labor precautions was discussed/given and patient was instructed to perform kick counts three times a day. Pt has complaints of not as frequent ofmovement- pt to start NST/BPP now at [facility] Placed This Encounter Procedures US biophysical profile w non stress test POCT urinalysis dipstick manually resulted Follow Up: Patient is to return to office in 2 week for routine OB appointment. Documented by Shari Gomez LPN on behalf of: Uriel Meade DO documented in this encounterSac-Osage [id number] History of Present illness Narrative* Mario Alberto Ortiz MD - 11/07/2024 8:30 AM EDT Video Visit via Real-time Synchronous Audiovisual Provider Location: [facility] AT [address] [id number] Patient Location: Patient's home Patient Location Offender Job Retention Specialist: None Video Visit Consent Statement: I discussed risks, benefits, and alternatives of a real-time synchronous audiovisual consultation with the patient (and any accompanying persons) including the risks that the patient's personal health details and medical records will be discussed over real-time, synchronous, interactive video/audio/telecommunication technology, the visit will not be recorded withoutthe express consent of both the provider and the patient, and that there are some limitations compared to [id number] evaluations. We elected to proceed. REASON FOR OFFICE VISIT: multiple medical issues HISTORY OF PRESENT ILLNESS: Indu Jorgensen is a pleasant 29 y.o. [id number] at 26w1d due on EstimatedDate of Delivery: 02/12/25 . Currently the patient has no complaints. The patient denies abdominal pain, vaginal bleeding, SOB or chest pain. Reports maintaining weight. 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 She follows with the psychiatry. She is still has some nausea and vomiting but she is only taking Protonix and does not want to take antiemetics. IVF Suspected right pelvic kidney Circumvallate placenta Nausea vomiting and eating disorder Anxiety and bipolar disorder - she is currently on olanzapine and quetiapine. She has a an appointment with the psychiatry next week. No thoughts of self-harm. 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 As needed., Disp: , Rfl: busPIRone (BUSPAR) 5 mg tablet, Take 1 tablet (5 mg total) by mouth 3 (three) times a day., Disp: ,Rfl: cholecalciferol 1,000 units tablet, Take 1 tablet (1,000 Units total) by mouth in the morning. (Patient not taking: Reported on 09/02/2024), Disp: , Rfl: doxylamine (UNISOM) 25 mg tablet, Take 1 tablet (25 mg total) by mouth nightly as needed for sleep., Disp: 90 tablet, Rfl: 1 meclizine (ANTIVERT) 25 mg tablet, Chew 1 tablet (25 mg total) and swallow 3 (three) times a day asneeded for dizziness or nausea., Disp: 30 tablet, Rfl: 0 OLANZapine (ZyPREXA) 2.5 mg tablet, Take 1 tablet (2.5 mg total) by mouth every 8 (eight) hours as needed., Disp: , Rfl: omega-3 acid ethyl esters (LOVAZA) 1 gram capsule, Take 2 capsules (2 g total) by mouth in the morning and 2 capsules (2 g total) before bedtime. (Patient not taking: Reported on 09/02/2024), Disp: , Rfl: pantoprazole (PROTONIX) 20 mg EC tablet, Take 1 tablet (20 mg total) by mouth in the morning for 90days., Disp: 90 tablet, Rfl: 0 VIT 26-BNAI-QXEUD-DHA ORAL, Take by mouth., Disp: , Rfl: pyridoxine, vitamin B6, (B-6) 25 mg tablet, Take 1 tablet (25 mg total) by mouth 3 (three) times a day., Disp: 90 tablet, Rfl: 1 QUEtiapine (SEROquel) 50 mg tablet, Take 1 tablet (50 mg total) by mouth in the morning and 1 tablet (50 mg total) before bedtime., Disp: , Rfl: simethicone (MYLICON) 80 mg chewable tablet, Chew 1 tablet (80 mg total) and swallow every 6 (six) hours as needed for flatulence., Disp: 30 tablet, Rfl: 1 sucralfate (CARAFATE) 100 mg/mL suspension, Take 10 mL (1,000 mg total) by mouth in the morning and10 mL (1,000 mg total) at noon and 10 mL (1,000 mg total) in the evening and 10 mL (1,000 mg total)before bedtime. (Patient not taking: Reported on 09/02/2024), Disp: , Rfl: thiamine HCl (VITAMIN B-1) 50 mg tablet, Take 2 tablets (100 mg total) by mouth in the morning., Disp: 90 tablet, Rfl: 1 Past Medical History: Diagnosis Date Abnormal uterine bleeding (AUB) ADHD (attention deficit hyperactivity disorder) Anovulation Anxiety Asthma Bipolar 1 disorder (CMS-HCC) Chronic fatigue Chronic rhinitis Chronic vaginitis Depression Endometriosis Female infertility Myalgia Proteinuria PTSD (post-traumatic stress disorder) REVIEW OF SYSTEMS: Head and Neck: Negative for any dizziness and headaches. Cardiovascular and Respiratory System: Denies any chest pain, shortness of breath, and coughing. Abdominal and System: Denies any abdominal pain, nausea, vomiting, vaginal bleeding, and vaginal discharge MRI abdomen 10/07/2024 IMPRESSION: Normal noncontrast MRI/MRCP of the abdomen with no hiatal hernia demonstrated. REVIEW OF ULTRASOUND. 11/06/2024 Impression Single live intrauterine . 26w 0d. Normal growth. EFW measures at the 47%, AC measures at the 70%. Amniotic fluid MVP measures 6.7 cm. Known circumvallate placenta again visualized. Known right pelvic kidney again visualized. PHYSICAL EXAMINATION: LMP 05/08/2024 . Gravid abdomen, Respirations not labored. Normal gait well oriented in time place and person. COUNSELING Ultrasound was reviewed with the patient. She has been concerned about the breech presentation and this was reviewed. If the baby remains breech in the 3rd trimester her OB can further discuss external cephalic version. We had a long conversation regarding her mental health and the importance to follow with her psychiatrist. She denies any thoughts of harming herself or others. Strategies to improve her eating and food choices were reviewed. Refill on Protonix given. I am pleased to find out that she is maintaining her weight. She gave me permission to discuss her case with her psychiatrist if needed RECOMMENDATION: - to continue to follow with her psychiatrist - follow-up in 4 weeks for interval growth - GCT is recommended at 24-28 weeks gestation - testing to be initiated at 32 weeks weekly NST and DVP through primary OB - Delivery is recommended at 39 weeks or sooner if clinically indicated - please follow-up on her iron-deficiency Thank you for allowing me to participate in Indu Patsy Jameel care. If there are any questions, please do not hesitate to call me. Sincerely, MARIO ALBERTO ORTIZ MD documented in this encounterMer[facility] Health [facility]08[facility]19-[facility] History of Present illness Narrative* Shari Gomez, AMERICAN SIGN LANGUAGE TEACHER - 10/21/2024 8:50 AM EDT Reason for Appointment: Patient ID: Indu Jorgensen is a 29 y.o. female who presents [...] Problems Diagnosis Date Noted Bipolar 1 disorder ([facility]) 11/13/2022 Anxiety 12/21/2022 Asthma (HCC) 12/21/2022 Attention deficit hyperactivity disorder (ADHD), combined type 12/21/2022 Proteinuria 08/03/2010 PTSD (post-traumatic stress disorder) 12/21/2022 Bipolar affective disorder, current episode hypomanic (HCC) 12/21/2022 Well woman exam with routine gynecological [...] medical problems Infertility counseling Low libido Miscarriage ([facility]-HCC) S/P laparoscopy Sciatica, unspecified side Seasonal allergic [...] bipolar disorder Infertility counseling Low libido Miscarriage (HHS-HCC) S/P laparoscopy Sciatica, unspecified side Seasonal allergic rhinitis, unspecified trigger Serous otitis media, unspecified chronicity, unspecified laterality URI (upper respiratory infection) 03/01/2019 [facility] - ER Social History [...] 03/2020 lap, D and C - at [facility] DILATION AND CURETTAGE OF UTERUS [...] nursing note reviewed. Exam conducted with a exterminator helper termite present. Vitals: Estimated body mass index is 20.47 kg/m as calculated from the following: Height as of 04/14/24: 5' 6 . Weight as of this encounter: 126 lb 12.8 oz. BP: 110/68 No LMP recorded. Patient is . ASSESSMENT & PLAN ICD-10-CM 1. 23 weeks gestation of ([facility]) Z3A.23 POCT urinalysis dipstick manually resulted 2. Second trimester ([facility]) Z34.92 POCT urinalysis dipstick manually resulted 3. Hyperemesis of ([facility]) O21.0 4. resulting from in vitro fertilization in second trimester ([facility]) O09.812 5. Diabetes mellitus screening Z13.1 CBC Glucose tolerance, 1 hour CBC Glucose tolerance, 1 hour Return OB: Patient presents today for a routine obstetrics appointment. Patient is currently 23w5d . Patient states she is doing well but has complaints of being tired due to current . Patient has verbalizes frequent movement. labor precautions was discussed/given. 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 Orders Placed This Encounter Procedures CBC Glucose tolerance, 1 hour POCT urinalysis dipstick manually resulted Follow Up: Patient is to return to office in 4 week for routine OB appointment. Documented by Shari Gomez LPN on behalf of: Uriel Meade DO documented in this encounterSac-Osage [id number] History of Present illness Narrative* Krupa Jones MD - 10/02/2024 2:30 PM EDT REASON FOR OFFICE VISIT: multiple medical issues HISTORY OF PRESENT ILLNESS: Indu Jorgensen is a pleasant 29 y.o. [id number] at 21w0d due on EstimatedDate of Delivery: 02/12/25 . has been complicated with IVF anxiety/panic attacks HEG Weight Loss Med Management THC use Currently the patient has no complaints. The patient denies nausea, vomiting, abdominal pain, vaginal bleeding, SOB or chest pain. 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 As needed., Disp: , Rfl: busPIRone (BUSPAR) 5 mg tablet, Take 1 tablet (5 mg total) by mouth 3 (three) times a day., Disp: ,Rfl: cholecalciferol 1,000 units tablet, Take 1 tablet (1,000 Units total) by mouth in the morning. (Patient not taking: Reported on 09/02/2024), Disp: , Rfl: doxylamine (UNISOM) 25 mg tablet, Take 1 tablet (25 mg total) by mouth nightly as needed for sleep., Disp: 90 tablet, Rfl: 1 meclizine (ANTIVERT) 25 mg tablet, Chew 1 tablet (25 mg total) and swallow 3 (three) times a day asneeded for dizziness or nausea., Disp: 30 tablet, Rfl: 0 OLANZapine (ZyPREXA) 2.5 mg tablet, Take 1 tablet (2.5 mg total) by mouth every 8 (eight) hours as needed., Disp: , Rfl: omega-3 acid ethyl esters (LOVAZA) 1 gram capsule, Take 2 capsules (2 g total) by mouth in the morning and 2 capsules (2 g total) before bedtime. (Patient not taking: Reported on 09/02/2024), Disp: , Rfl: pantoprazole (PROTONIX) 20 mg EC tablet, Take 1 tablet (20 mg total) by mouth in the morning for 90days., Disp: 90 tablet, Rfl: 0 VIT 05-[id number]-DHA ORAL, Take by mouth., Disp: , Rfl: pyridoxine, vitamin B6, (B-6) 25 mg tablet, Take 1 tablet (25 mg total) by mouth 3 (three) times a day., Disp: 90 tablet, Rfl: 1 QUEtiapine (SEROquel) 50 mg tablet, Take 1 tablet (50 mg total) by mouth in the morning and 1 tablet (50 mg total) before bedtime., Disp: , Rfl: simethicone (MYLICON) 80 mg chewable tablet, Chew 1 tablet (80 mg total) and swallow every 6 (six) hours as needed for flatulence., Disp: 30 tablet, Rfl: 1 sucralfate (CARAFATE) 100 mg/mL suspension, Take 10 mL (1,000 mg total) by mouth in the morning and10 mL (1,000 mg total) at noon and 10 mL (1,000 mg total) in the evening and 10 mL (1,000 mg total)before bedtime. (Patient not taking: Reported on 09/02/2024), Disp: , Rfl: thiamine HCl (VITAMIN B-1) 50 mg tablet, Take 2 tablets (100 mg total) by mouth in the morning., Disp: 90 tablet, Rfl: 1 Past Medical History: Diagnosis Date Abnormal uterine bleeding (AUB) ADHD (attention deficit hyperactivity disorder) Anovulation Anxiety Asthma Bipolar 1 disorder (CMS-HCC) Chronic fatigue Chronic rhinitis Chronic vaginitis Depression Endometriosis Female infertility Myalgia Proteinuria PTSD (post-traumatic stress disorder) REVIEW OF SYSTEMS: Head and Neck: Negative for any dizziness and headaches. Cardiovascular and Respiratory System: Denies any chest pain, shortness of breath, and coughing. Abdominal and System: Denies any abdominal pain, nausea, vomiting, vaginal bleeding, and vaginal discharge REVIEW OF ULTRASOUND. Today's ultrasound showed a fetus current at the 62nd percentile with normal amniotic fluid. The anatomic survey was completed today. There is a circumvallate shaped placenta. There is a right pelvickidney. Both kidneys appear normal in size with normal parenchyma. There is no evidence of urinary t ract dilation. PHYSICAL EXAMINATION: LMP 05/08/2024 . Gravid abdomen, Respirations not labored. Normal gait well oriented in time place and person. RECOMMENDATION: 1. Indu reports continued nausea and vomiting. She has not lost any weight recently. She has not yet tried the Unisom and B6. I encouraged her to try as the Reglan and Zofran are not working. 2. Follow-up in 4 weeks for interval growth 3. GCT is recommended at 24-28 weeks gestation 4. She has close follow-up scheduled with her psychiatrist and is taking olanzapine and quetiapine. 5. Initiate surveillance at 32 weeks gestation 6. Delivery is recommended at 39 weeks or sooner if clinically indicated. Thank you for allowing me to participate in Indu Jorgensen care. If there are any questions, please do not hesitate to call me. Sincerely, KRUPA JONES MD documented in this encounterMercy Health St. [facility]07-31-2025 Miscellaneous Notes* Telephone Encounter - Lexi Maya RN - 10/02/2024 1:48 PM EDT Yocasta from radiology called to see if patient needed MRI urgently done, the radiologist was questioning if MRI should be done after patient delivers. After speaking with Dr. Ortiz she still wants the MRI done now to rule out hiatal hernia. Yocasta notified. Yocasta stated that they are only going to do MRI of the abdomen and not the chest. She stated they should get all the imaging they need with justthe abdomen. documented in this encounterMercy Health St. [facility]07-31-2025 Telephone encounter Note* Telephone Encounter - Lexi Maya RN - 10/02/2024 1:48 PM EDT Yocasta from radiology called to see if patient needed MRI urgently done, the radiologist was questioning if MRI should be done after patient delivers. After speaking with Dr. Ortiz she still wants the MRI done now to rule out hiatal hernia. Yocasta notified. Yocasta stated that they are only going to do MRI of the abdomen and not the chest. She stated they should get all the imaging they need with justthe abdomen. [facility]07-24-[facility] History of Present illness Narrative* Akua Streeter, ANN - 09/25/2024 8:40 AM EDT Reason for Appointment: Patient ID: Indu Jorgensen is a 29 y.o. female who presents [...] Problems Diagnosis Date Noted Bipolar 1 disorder ([facility]) 11/13/2022 Anxiety 12/21/2022 Asthma ([facility]) 12/21/2022 Attention deficit hyperactivity disorder (ADHD), combined type 12/21/2022 Proteinuria 08/03/2010 PTSD (post-traumatic stress disorder) 12/21/2022 Bipolar affective disorder, current episode hypomanic ([facility]) 12/21/2022 Well woman exam with routine gynecological [...] medical problems Infertility counseling Low libido Miscarriage ([facility]) S/P laparoscopy Sciatica, unspecified side Seasonal allergic [...] bipolar disorder Infertility counseling Low libido Miscarriage ([facility]) S/P laparoscopy Sciatica, unspecified side Seasonal allergic rhinitis, unspecified trigger Serous otitis media, unspecified chronicity, unspecified laterality URI (upper respiratory infection) 03/01/2019 [facility] [place] - ER Social History [...] 03/2020 lap, D and C - at [facility] DILATION AND CURETTAGE OF UTERUS 03/07/2013 ; 08/13/2015 DILATION AND CURETTAGE OF UTERUS 10/27/2022 EGD 11/2023 HYSTEROSCOPY 06/12/2016 Laproscopy/hysterscopy REVIEW OF SYSTEMS Review of Systems: Review of Systems Constitutional: Negative. HENT: Negative. Eyes: Negative. Respiratory: Negative. Cardiovascular: Negative. Gastrointestinal: Negative. Genitourinary: Positive for pelvic pain. Musculoskeletal: Negative. Skin: Negative. Neurological: Negative. All [...] nursing note reviewed. Exam conducted with a exterminator helper termite present. Vitals: Estimated body mass index is 19.69 kg/m as calculated from the following: Height as of 04/14/24: 5' 6 . Weight as of this encounter: 122 lb. BP: 114/66 No LMP recorded. Patient is . ASSESSMENT & PLAN ICD-10-CM 1. Second trimester ([facility]) Z34.92 POCT urinalysis dipstick manually resulted 2. 20 weeks gestation of ([facility]) Z3A.20 POCT urinalysis dipstick manually resulted Patient presents today for a routine obstetrics appointment. Patient is currently 20w0d with a Estimated Date of Delivery: 02/12/25. Patient voiced she is feeling better today, but yesterdayshe was having pain and heartburn/reflux after eating as she is still struggling eating. Discussed pain with walking and recommended belly band that goes over shoulders to assist with discomfort. Patient voiced that her massage helped a little, but pressure is still there. Patients anatomy scan is scheduled for the . MRI scheduled for the to assess for hernia. Patient has seen a dieticianand now has eating disorder diagnosis. 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 Patient to return to clinic in 4 weeks. Documented by Akua Streeter LPN on behalf of: Uriel Meade DO documented in this encounterSac-Osage [id number] Miscellaneous Notes* Telephone Encounter - Leix Maya RN - 09/17/2024 1:15 PM EDT Notified patient that Dr Ortiz ordered an MRI of the abdomen and chest to rule out a hernia. Provided number to schedule. Management Technician also encouraged patient to make GI appointment. Patient verbalized understanding and stated she will schedule it. documented in this encounterMercy Health St. [facility]07-16-2025 Telephone encounter Note* Telephone Encounter - Lexi Maya RN - 09/17/2024 1:15 PM EDT Notified patient that Dr Ortiz ordered an MRI of the abdomen and chest to rule out a hernia. Provided number to schedule. Management Technician also encouraged patient to make GI appointment. Patient verbalized understanding and stated she will schedule it. [facility]07-14-[facility] History of Present illness Narrative* Aisha Costa MD - 09/15/2024 2:16 PM EDT CGM Blood glucose at goal. There was no of hypoglycemia. No need for further monitoring. Recommend timed glucose challenge testing at 24-28 weeks gestation. Aisha Costa MD [place]- [place] [address] documented in [address] encounterMercy Health St. [facility]07-09-2025 History of Present illness Narrative* Maria T Lambert RD - 09/10/2024 8:00 AM EDT Nutritional Assessment Form Date: 09/10/2024 [place]: Estimated Date of Delivery: 02/12/25 EGA: 17w6d Past Medical History: Diagnosis Date Abnormal uterine bleeding (AUB) ADHD (attention deficit hyperactivity disorder) Anovulation Anxiety Asthma Bipolar 1 disorder (CMS-HCC) Chronic fatigue Chronic rhinitis Chronic vaginitis Depression Endometriosis Female infertility Myalgia Proteinuria PTSD (post-traumatic stress disorder) OB History 3 Para 1 Term 1 AB 1 Living 1 SAB 1 IAB Ectopic Multiple Live Births 1 Current Outpatient Medications Medication Sig Dispense Refill ARIPiprazole (ABILIFY) 5 mg tablet Take 1 tablet (5 mg total) by mouth in the morning. blood-glucose sensor (FREESTYLE PABLITO 3 PLUS SENSOR) device Wear for 15 d and change 2 each 4 budesonide-formoteroL (SYMBICORT) 80-4.5 mcg/actuation inhaler Inhale 2 puffs in the morning and 2 puffs before bedtime. As needed. busPIRone (BUSPAR) 5 mg tablet Take 1 tablet (5 mg total) by mouth 3 (three) times a day. cholecalciferol 1,000 units tablet Take 1 tablet (1,000 Units total) by mouth in the morning. (Patient not taking: Reported on 09/02/2024) doxylamine (UNISOM) 25 mg tablet Take 1 tablet (25 mg total) by mouth nightly as needed for sleep. 90 tablet 1 meclizine (ANTIVERT) 25 mg tablet Chew 1 tablet (25 mg total) and swallow 3 (three) times a day as needed for dizziness or nausea. 30 tablet 0 OLANZapine (ZyPREXA) 2.5 mg tablet Take 1 tablet (2.5 mg total) by mouth every 8 (eight) hours as needed. omega-3 acid ethyl esters (LOVAZA) 1 gram capsule Take 2 capsules (2 g total) by mouth in the morning and 2 capsules (2 g total) before bedtime. (Patient not taking: Reported on 09/02/2024) pantoprazole (PROTONIX) 20 mg EC tablet Take 1 tablet (20 mg total) by mouth in the morning for 90 days. 90 tablet 0 VIT [id number]-DHA ORAL Take by mouth. pyridoxine, vitamin B6, (B-6) 25 mg tablet Take 1 tablet (25 mg total) by mouth 3 (three) times a day. 90 tablet 1 QUEtiapine (SEROquel) 50 mg tablet Take 1 tablet (50 mg total) by mouth in the morning and 1 tablet(50 mg total) before bedtime. simethicone (MYLICON) 80 mg chewable tablet Chew 1 tablet (80 mg total) and swallow every 6 (six) hours as needed for flatulence. 30 tablet 1 sucralfate (CARAFATE) 100 mg/mL suspension Take 10 mL (1,000 mg total) by mouth in the morning and 10 mL (1,000 mg total) at noon and 10 mL (1,000 mg total) in the evening and 10 mL (1,000 mg total) before bedtime. (Patient not taking: Reported on 09/02/2024) thiamine HCl (VITAMIN B-1) 50 mg tablet Take 2 tablets (100 mg total) by mouth in the morning. 90 tablet 1 No current facility-administered medications for this visit. Present MNT Therapy: regular Insulin Therapy: Date started: Anthropometric Data: Height: Ht Readings from Last 1 Encounters: 09/02/24 167.6 cm (5' 6 ) Pre- Wt: 49.4 kg (109 lb) Pre- BMI: 17.60 Current BMI: Body mass index is 19.37 kg/m . Pre Wt. Category: underweight Current Weight: Wt Readings from Last 1 Encounters: 09/10/24 54.4 kg (120 lb) Weight Gain Goals: 28-40# Lab Data: BP BP Readings from Last 1 Encounters: 09/02/24 132/71 Hgb Hct OGCT OGTT HgA1C SMBG: Frequency : Testing Times: Glucose meter: Records Kept? 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 Yes Current Exercise program light duty Who prepares the meal Who purchase food at your home? pt Equipment use for cooking/food storage has all Food Assistance(Ex.WIC, Food [place]) declined Dining out Yes 1 time per week Appetite/Appetite changes decreased Weight History loosing- 140 in apr of last year (stopped meds) Do you have cats at home? Feeding Plans Breast Feeding If you have cats, who cleans the litter box? Cravings/Aversions/Pica none Nutrition Assessment Worksheet: Week/Weekend Food Recall Breakfast Ramen noodles Snack (Scattered throughout the day) Bananas Lunchable Little jaquelin snack Lunch Cereal Snack Dinner Pizza (2 small pieces of a personal) Snack Snack Time *Dairy doesn't agree with her, aversion to eggs, fish, large pieces of meat/poultry Indu Jorgensen presents via televisit for diet instruction per doctor order secondary to diagnosis of hyperemesis in . She reports that she has a long standing history of an eating disorder, with aversions to food. Has been on appetite stimulants in the past and on lipid infusions prior to her IVF transfer. She also notes that in addition to her food aversions and nausea with the she has very picky children which further limits the foods that they consume both due to preferences and financial constraints. Food recall suggests patient typically consumes a diet of mainly convenience foods. Pt has gained 11# to date. Based on patient's stated pre- weight, weight gain goal is 28-40#. Nutrition diagnosis: inadequate protein energy intake related to limited food acceptance as evidenced by patient's food recall. Estimated energy needs: 2136-2697 kcal (MSJ using 1.2 AF and additional 340-450 kcal for 2nd and 3rd trimesters) and 60-75 gm protein (1.2-1.5 gm/kg prepregnancy weight). Encouraged small frequent meals whenever possible, trying to maximize the foods that she is consuming by consuming calorically dense foods and pairing carbs with protein foods whenever possible. Encouraged batch cooking and freezing extra portions in addition to using some ready to eat convenience foods to help minimize prep as cooking foods often will make her more nauseous andless likely to eat. Discussed easy protein and fat options to add with her snacks and meals. Reviewed ways to incorporate commercial protein powders and provided with handout on [employer] nutrition shakes to help personalize and cut down on costs. Briefly reviewed CGM download, which did show some episodes of low blood sugars and she confirmed feeling symptoms of lows as well. We reviewed treatment of low blood sugars. Will send all handouts through [employer] and encouraged to reach out with further questions. Given her history, she may benefit from further evaluation from a nutrition professional who specializes in the intersection of mental health and food. Face to face time 60 minutes. documented in this encounterMercy Health St. [facility]07-01-2025 History of Present illness Narrative* Lexi Maya RN - 09/02/2024 8:45 AM EDT Headache/epigastric pain/blurry vision/swelling? Bilateral feet swelling. Denies other symptoms. Cramping/contractions? Random sharp pains in lower abdomen Spotting/vaginal bleeding? No Loss or gush of fluid like your water may have broken? No Do you have cats at home? No Do you change the litter box (reason: risk of toxoplasmosis)? NA Genetic testing done this here or other office? Yes, low risk Have you been seen here at [facility] in a previous ? No. Saw [facility] this at [facility] during an emergency room visit Recent ER visits or hospitalizations? Patient went to [facility] a few weeks ago for chestpain and emesis occurences. Bring blood sugar log or meter with you today? (Please bring them with you for every visit at [facility]) NA Flu vaccine (Jan-May)? NA Any concerns that you would like me to mention to the provider today? Patient experience BP changeswhen changing postions and getting dizzy spells. Patient also experienceing projectile vomitting when having a bowel movement. * Mario Alberto Ortiz MD - 09/02/2024 8:45 AM EDT [facility]- [facility] Consult Note Reason For Consult: multiple issues HPI: Indu Jorgensen is a 29 y.o. at 16w5d with Estimated Date of Delivery: 02/12/25 who presented for consultation from Uriel Villalta DO regarding Chief Complaint Patient presents with IVF anxiety/panic attacks HEG Weight Loss Med Management THC use I have reviewed the pertinent available patient records including but not limited to notes, labs and images She presents today with her partner. She reports that she is doing well. She reports some movements and she denies leakage of fluid, contractions or vaginal bleeding. She denies fever, chills shortness of breath, chest pain, headache, blurry vision, right upper quadrant pain or edema. Experiences epigastric discomfort when she is having episodes of vomiting Complications: IVF Suspected right pelvic kidney circumvallate placenta Hyperemesis, concern for cyclical nausea and vomiting due to marijuana Now she is gaining weight. She tells me that she can vomit anywhere between 2-15 times a day; she is tolerating po and she is able to eat and drink fluids. Earlier in the she had admission for esophagitis. She is currently off antiemetics. Denies blood in the vomit. Has some days of feeling bloated. Has tried Zofran and Reglan in the past. She is using marijuana daily. Had normal EKG and echocardiogram in August of 2024 She is concerned that she has some sort of an eating disorder and reports food aversions and havingissues with certain food textures Anxiety and bipolar disorder - she is currently on olanzapine and quetiapine. She has a an appointment with the psychiatry next week. No thoughts of self-harm. Denies family history of: Learning difficulties, congenital anomalies, DVT/VTE, early-onset cancer,early-onset cardiac disease or other inherited conditions Cell free DNA: low risk cell free DNA Denies exposure to cat litter, farming animals, toxic exposure to chemical at work/environment Recent hospitalization: no Review of systems: Review of systems was noncontributory OB Hx: OB History Para Term AB Living 3 1 1 1 1 SAB IAB Ectopic Multiple Live Births 1 1 # Outcome Date GA Lbr Andrey/2nd Weight Sex Type Anes PTL Lv 3 Current 2 SAB 2016 1 Term 12/13/12 3.969 kg F Vag-Spont EPI [place] PMH: Past Medical History: Diagnosis Date Abnormal uterine bleeding (AUB) ADHD (attention deficit hyperactivity disorder) Anovulation Anxiety Asthma Bipolar 1 disorder ([facility]) Chronic fatigue Chronic rhinitis Chronic vaginitis Depression Endometriosis Female infertility Myalgia Proteinuria PTSD (post-traumatic stress disorder) PSHIST: Past Surgical History: Procedure Laterality Date COLONOSCOPY 11/2023 DILATION AND CURETTAGE OF UTERUS 03/2020 DILATION AND CURETTAGE OF UTERUS 03/07/2013 DILATION AND CURETTAGE OF UTERUS 08/13/2015 DILATION AND CURETTAGE OF UTERUS 10/27/2022 DILATION AND CURETTAGE OF UTERUS ESOPHAGOGASTRODUODENOSCOPY 11/2023 HYSTEROSCOPY 06/12/2016 Laparoscopy/Hysteroscopy HYSTEROSCOPY 10/2022 LAPAROSCOPY x4 TONSILLECTOMY TYMPANOSTOMY TUBE PLACEMENT TYMPANOSTOMY TUBE PLACEMENT Allergies: Allergies Allergen Reactions House Dust Mite Meds: Current Outpatient Medications: OLANZapine (ZyPREXA) 2.5 mg tablet, Take 1 tablet (2.5 mg total) by mouth every 8 (eight) hours as needed., Disp: , Rfl: VIT [id number]-[id number] ORAL, Take by mouth., Disp: , Rfl: QUEtiapine (SEROquel) 50 mg tablet, Take 1 tablet (50 mg total) by mouth in the morning and 1 tablet (50 mg total) before bedtime., Disp: , Rfl: ARIPiprazole (ABILIFY) 5 mg tablet, Take 1 tablet (5 mg total) by mouth in the morning., Disp: , Rfl: budesonide-formoteroL (SYMBICORT) 80-4.5 mcg/actuation inhaler, Inhale 2 puffs in the morning and 2puffs before bedtime. As needed., Disp: , Rfl: busPIRone (BUSPAR) 5 mg tablet, Take 1 tablet (5 mg total) by mouth 3 (three) times a day., Disp: ,Rfl: cholecalciferol 1,000 units tablet, Take 1 tablet (1,000 Units total) by mouth in the morning. (Patient not taking: Reported on 09/02/2024), Disp: , Rfl: doxylamine (UNISOM) 25 mg tablet, Take 1 tablet (25 mg total) by mouth nightly as needed for sleep., Disp: 90 tablet, Rfl: 1 meclizine (ANTIVERT) 25 mg tablet, Chew 1 tablet (25 mg total) and swallow 3 (three) times a day asneeded for dizziness or nausea., Disp: 30 tablet, Rfl: 0 omega-3 acid ethyl esters (LOVAZA) 1 gram capsule, Take 2 capsules (2 g total) by mouth in the morning and 2 capsules (2 g total) before bedtime. (Patient not taking: Reported on 09/02/2024), Disp: , Rfl: pantoprazole (PROTONIX) 20 mg EC tablet, Take 1 tablet (20 mg total) by mouth in the morning for 90days., Disp: 90 tablet, Rfl: 0 pyridoxine, vitamin B6, (B-6) 25 mg tablet, Take 1 tablet (25 mg total) by mouth 3 (three) times a day., Disp: 90 tablet, Rfl: 1 simethicone (MYLICON) 80 mg chewable tablet, Chew 1 tablet (80 mg total) and swallow every 6 (six) hours as needed for flatulence., Disp: 30 tablet, Rfl: 1 sucralfate (CARAFATE) 100 mg/mL suspension, Take 10 mL (1,000 mg total) by mouth in the morning and10 mL (1,000 mg total) at noon and 10 mL (1,000 mg total) in the evening and 10 mL (1,000 mg total)before bedtime. (Patient not taking: Reported on 09/02/2024), Disp: , Rfl: thiamine HCl (VITAMIN B-1) 50 mg tablet, Take 2 tablets (100 mg total) by mouth in the morning., Disp: 90 tablet, Rfl: 1 SH: Social History Socioeconomic History Marital status: Spouse name: Not on file Number of children: Not on file Years of education: Not on file Highest education level: Not on file Occupational History Not on file Tobacco Use Smoking status: Never Smokeless tobacco: Never Vaping Use Vaping status: Never Used Substance and Sexual Activity Alcohol use: Not Currently Drug use: Yes Types: Marijuana Sexual activity: Yes Other Topics Concern Not on file Social History Narrative Not on file Social Drivers of Health Financial Resource Strain: Low Risk (08/15/2024) Received from [facility] Overall Financial Resource Strain (CARDIA) Difficulty of Paying Living Expenses: Not hard at all Food Insecurity: No Food Insecurity (09/02/2024) Hunger Screening Food Insecurity - Worry: Never True Food Insecurity - Inability: Never True Transportation Needs: No Transportation Needs (08/15/2024) Received from [facility] PRAPARE - Transportation Lack of Transportation (Medical): No Lack of Transportation (Non-Medical): No Physical Activity: Insufficiently Active (07/06/2024) Received from [facility] Exercise Vital Sign Days of Exercise per Week: 1 day Minutes of Exercise per Session: 30 min Stress: Stress Concern Present (02/15/2024) Received from [facility] [place] [facility] Occup[facility] - Occupational Stress Questionnaire Feeling of Stress : Very much Social Connections: Moderately Isolated (02/15/2024) Received from [facility] Social Connection and Isolation Panel [NHANES] Frequency of Communication with Friends and Family: More than three times a week Frequency of Social Gatherings with Friends and Family: Never Attends Catholic Services: Never Active Member of Clubs or Organizations: No Attends Club or Organization Meetings: Never Marital Status: Interpersonal Safety: Not At Risk (08/15/2024) Received from [facility] Humiliation, Afraid, Rape, and Kick questionnaire Fear of Current or Ex-Partner: No Emotionally Abused: No Physically Abused: No Sexually Abused: No Housing Instability: Low Risk (07/07/2024) Received from [facility] Housing Stability Vital Sign Unable to Pay for Housing in the Last Year: No Number of Times Moved in the Last Year: 0 Homeless in the Last Year: No Physical Exam: Vital Signs Vitals: 09/02/24 0802 BP: 132/71 BP Site: Left Arm BP Postition: Lying BP CUFF SIZE: S (7-9 inches) Pulse: 87 Weight: 56.6 kg (124 lb 12.8 oz) Height: 167.6 cm (5' 6 ) Physical Exam: Gen: Not in acute distress, alert and oriented. Eyes: Pupils equal and reactive Chest: Nonlabored breathing Cardiac: Pulse was regular on vital signs assessment Abdomen: Gravid, soft, non tender Skin/extremities: Appears intact. No visible lesions MS:no visible edema Neuro: No focal deficits Notes/Imaging/Labs reviewed Abstract on 08/18/2024 Component Date Value Ref Range Status Syphilis Total 03/14/2024 non reactive Final Rubella immune IgG 03/14/2024 13.50 Final HIV 1&2 AB/AG 03/14/2024 non reactive Final Hepatitis B Surface Antigen 03/14/2024 negative Final Glucose 03/14/2024 87 mg/dL Final BUN 03/14/2024 13 4 - 21 mg/dL Final Creatinine 03/14/2024 0.8 0.5 - 1.1 mg/dL Final Potassium 03/14/2024 4.1 3.4 - 5.3 mmol/L Final Sodium 03/14/2024 142 137 - 147 mmol/L Final Alkaline Phosphatase 03/14/2024 51 25 - 125 U/L Final ALT 03/14/2024 47 (A) 7 - 35 U/L Final AST 03/14/2024 21 13 - 35 U/L Final Abo/Rh(D) 03/14/2024 O Positive Final Antibody Screen 03/14/2024 negative Final Hemoglobin A1C 03/14/2024 5.3 4.0 - 6.0 % Final Syphilis Total 03/14/2024 non reactive Final Rubella immune IgG 03/14/2024 13.50 Final Ultrasound findings Pertinent Ultrasound findings are see report Assessment/Plan 29 y.o. @ at 16w5d with Estimated Date of Delivery: 02/12/25 here for consultation regardin. 16 weeks gestation of - doxylamine (UNISOM) 25 mg tablet; Take 1 tablet (25 mg total) by mouth nightly as needed for sleep. Dispense: 90 tablet; Refill: 1 - pyridoxine, vitamin B6, (B-6) 25 mg tablet; Take 1 tablet (25 mg total) by mouth 3 (three) times a day. Dispense: 90 tablet; Refill: 1 - thiamine HCl (VITAMIN B-1) 50 mg tablet; Take 2 tablets (100 mg total) by mouth in the morning. Dispense: 90 tablet; Refill: 1 - pantoprazole (PROTONIX) 20 mg EC tablet; Take 1 tablet (20 mg total) by mouth in the morning for 90 days. Dispense: 90 tablet; Refill: 0 - [facility] [place], [place]; Future - Ultrasound abdomen complete; Future - Comprehensive metabolic panel; Future - simethicone (MYLICON) 80 mg chewable tablet; Chew 1 tablet (80 mg total) and swallow every 6 (six) hours as needed for flatulence. Dispense: 30 tablet; Refill: 1 - meclizine (ANTIVERT) 25 mg tablet; Chew 1 tablet (25 mg total) and swallow 3 (three) times a day as needed for dizziness or nausea. Dispense: 30 tablet; Refill: 0 - Magnesium; Future - CBC without diff; Future - Ferritin; Future - Vitamin B12; Future - Folate; Future - [facility] - [place], [place] - ; Future 2. resulting from in vitro fertilization in second trimester Assisted reproductive technology (ART) namely in vitro fertilization (IVF) carries a slightly increased risk of , low weight, placental abruption, stillbirth, abnormal placentationand placental cord insertion such as increased risk for placenta previa, vasa previa and velamentous cord insertion, gestational diabetes and preeclampsia compared with spontaneously conceived pregnancies. The absolute risk for each of these complications however, is small, with most pregnancies having a normal outcome. In addition we discussed that while the baseline population risk of having a child with a congenital anomaly is 2-3%, IVF pregnancies (with or with out ICSI) have increased oddsof congenital anomalies (odds ratio 1.30), some of which may not be detectable antenatally. Circumvallate placenta on ultrasound today that increases the risk of complications such as growth restriction. She will be candidate for surveillance and growth ultrasounds 3. Hyperemesis of - doxylamine (UNISOM) 25 mg tablet; Take 1 tablet (25 mg total) by mouth nightly as needed for sleep. Dispense: 90 tablet; Refill: 1 - pyridoxine, vitamin B6, (B-6) 25 mg tablet; Take 1 tablet (25 mg total) by mouth 3 (three) times a day. Dispense: 90 tablet; Refill: 1 - thiamine HCl (VITAMIN B-1) 50 mg tablet; Take 2 tablets (100 mg total) by mouth in the morning. Dispense: 90 tablet; Refill: 1 - pantoprazole (PROTONIX) 20 mg EC tablet; Take 1 tablet (20 mg total) by mouth in the morning for 90 days. Dispense: 90 tablet; Refill: 0 - [facility] [place], [place]; Future - Ultrasound abdomen complete; Future - Comprehensive metabolic panel; Future - simethicone (MYLICON) 80 mg chewable tablet; Chew 1 tablet (80 mg total) and swallow every 6 (six) hours as needed for flatulence. Dispense: 30 tablet; Refill: 1 - meclizine (ANTIVERT) 25 mg tablet; Chew 1 tablet (25 mg total) and swallow 3 (three) times a day as needed for dizziness or nausea. Dispense: 30 tablet; Refill: 0 - Magnesium; Future - CBC without diff; Future - Ferritin; Future - Vitamin B12; Future - Folate; Future - [facility] - [place], [place] - ; Future 4. Cyclical vomiting with nausea 5. Marijuana use during Now she is gaining weight per her and partner reports. She tells me that she can vomit anywhere between 2-15 times a day mainly sputum; she is tolerating p.o. and she is able to eat and drink. She has been hydrating. We also reviewed electrolytes supplements. Earlier in the she had admission for esophagitis. She is currently off antiemetics. Denies blood in the vomit. Has some days of feeling bloated. Has tried Zofran and Reglan in the past. Sheis using marijuana daily. Had normal EKG and echocardiogram in August of 2024 I strongly recommended marijuana cessation as this can be associated with cyclical nausea and vomiting as well as it crosses to the placenta and has been linked with adverse outcomes including but not limited to growth restriction, labor, long-term potential neurodevelopmental issues. I gave her a referral to Gastroenterology Ultrasound of the abdomen was ordered. The patient may require an MRI of the abdomen to further evaluate pending ultrasound of the abdomen results. I started her on Protonix as there is a concern for esophagitis. She tells me that now she is gaining some weight and she has been able to stay hydrated. We discussed the importance of nutrition and I gave her food recommendations. We reviewed protein carbohydrate fat intake. I gave her recommendations regarding meals she can try. Nutrition consultation was also initiated. Referral to the [facility] center was given as the patient is concerned that she might be having certain food aversions. Return precautions were given to the patient. Discussed Unisom, vitamin B6, thiamine and meclizine. Meclizine was chosen as she tells me she is experiencing motion sickness. She did not like the Zofran before. For now will hold off Compazine or Reglan as she is on 2 antipsychotic medications. We will check her CMP and her electrolytes. She understands that she has a high-risk for admission Return precautions were given to the patient. She tells me that her private mortgage banker safe is considering TPN. If there is a concern that the patient needs enteric nutrition or TPN then I would recommend admission for further evaluation. I asked her to track her weight CGM was also placed to monitor the patient for any hypoglycemia 6. renal anomaly, single gestation A pelvic kidney is the most common type of renal ectopia and occurs in 1 in 700 live births. A pelvic kidney is one located below the aortic bifurcation in the presacral area. The pelvic location results from failure of renal ascent in early embryonic development. Pelvic kidneys are usually smallerthan expected for gestational age and have an aberrant blood supply. Nearly 50% of pelvic kidneys are affected by hypoplasia, dysplasia, or hydronephrosis. However, these conditions rarely correlate with an adverse prognosis for the fetus. Although vesicoureteral reflux is identified in 80% of contralateral kidneys during childhood, it usually resolves over time with conservative management. Dysplasia affects the contralateral kidney in 4% of cases. Contralateral hydronephrosis requiring surgical intervention, such as that caused by ureteropelvic junction (UPJ) obstruction, is uncommon, occurring in 5% of cases. Coexisting single umbilical artery and cardiac and intracranial anomalies have been reported. Hypospadias and cryptorchidism in males and genital anomalies affecting females seem to be slightly increased in pediatric series. We also reviewed amniocentesis if she is interested infurther genetic testing and the patient declines 7. 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 Bipolar disease 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 trimester ([facility]) 9. Anxiety during I reviewed with the patient that stability of mood for 6 to 24 months prior to is predictive of a lower risk of recurrent mood episodes during and . Bipolar affective disorder in is associated with an increased risk for recurrent mood episodes during and especially in the period such as depression and psychosis. Treatment with psychotropics has been shown to decrease the frequency of recurrence of these episodes. She is on olanzapine and quetiapine. She is scheduled to see psychiatry. Second-generation antipsychotics (eg, quetiapine, olanzapine) are more often prescribed compared with first-generation antipsychotics (eg, haloperidol, chlorpromazine) due to fewer extrapyramidal side effects and improved tolerability. However, this benefit should be balanced with the knowledge that there are fewer published data regarding the use of second-generation antipsychotics in .Quetiapine has the lowest placental passage and thus is often a preferred first-line antipsychotic.Quetiapine is associated with metabolic risks, including increased weight gain and risk of gestational diabetes. Risk for withdrawal and extrapyramidal symptoms reviewed. Studies on long-term neuro development are of poor quality. For now the patient accepts risks and desires to stay on her medications. She must have close follow-up of her mood as she is at high-risk of complications from her bipolar disorder including psychosis. Today the patient desires outpatient management and is not interested in admission Recommendations: GI referral initiated Abdominal ultrasound ordered Labs as above CGM placed The patient is started on Protonix, Unisom, vitamin B6, thiamine and meclizine If you are concerned that the patient requires parenteral or internal nutrition admission would be recommended. For now the patient desires a nutrition consultation. This was initiated Follow-up survey and echocardiogram scheduled Serial growth assessments every 4 weeks after the anatomy scan testing to be initiated at 32 weeks weekly NST and DVP She needs to closely follow-up with the psychiatry Continue to monitor her weight Continue to monitor her mood Delivery recommended 39 weeks Return precautions given Plan reviewed with patient. She vocalized understanding all questions answered. The patient is to continue with routine care in your office Thank you for allowing me to participate in her care. Please contact me if you have any concerns. Mario Alberto Ortiz MD, FACOG (she/hers) Maternal- Medicine [facility] [address] [place] [address] This document was created with [employer] technology. Though I make every effort to review the dictation as it is transcribed, on occasion the spoken word can be misinterpreted by the technology leading to inappropriate words, phrases, or sentences. This note is addressed to the requesting provider as a consultation for clinical guidance. Specificmedical abbreviations are occasionally used and those are generally approved by the [place]?Board of?Obstetrics and?Gynecology?as well as?Alex s abbreviations. The above plan of care was based solely on the diagnoses for which a consultation was requested. ?More frequent testing may be indicated based on her other medical/obstetrical conditions. The management of other or medical conditions is beyond the scope of requested consultation and will c ontinue to be followed by the primary hardboard factory worker or primary care provider. Note to patient: The 21st Century Cures Act makes medical notes like these available to patients inthe interest of transparency. However, be advised this is a medical document. It is intended as peer to peer communication. It is written in medical language and may contain abbreviations or verbiagethat are unfamiliar. It may appear blunt or direct. Medical documents are intended to carry relevant information, facts as evident, and the clinical opinion of the practitioner. * Shane Ware CMA - 09/02/2024 8:45 AM EDT Pablito 3 plus CGM placed on patient as ordered. Placed on patients right upper arm and verified thatit was working with sensor. Educated patient on CGM and questions answered. documented in this encounterOhio Valley Surgical HospitalZentila Walter P. Reuther Psychiatric [id number] History of Present illness Narrative* Shari Gomez LPN - 08/26/2024 9:20 AM EDT Reason for Appointment: Patient ID: Indu Jorgensen is a 28 y.o. female who presents [...] 12/21/2022 Bipolar affective disorder, current episode hypomanic (HCC) 12/21/2022 Well woman exam with routine gynecological [...] medical problems Infertility counseling Low libido Miscarriage ([facility]) S/P laparoscopy Sciatica, unspecified side Seasonal allergic [...] bipolar disorder Infertility counseling Low libido Miscarriage ([facility]) S/P laparoscopy Sciatica, unspecified side Seasonal allergic rhinitis, unspecified trigger Serous otitis media, unspecified chronicity, unspecified laterality URI (upper respiratory infection) 03/01/2019 [facility] [place] - ER Social History [...] 03/2020 lap, D and C - at [facility] DILATION AND CURETTAGE OF UTERUS [...] nursing note reviewed. Exam conducted with a exterminator helper termite present. Vitals: Estimated body mass index is 19.41 kg/m as calculated from the following: Height [...] gonorrhea DNA probe, direct 3. Second trimester ([facility]) Z34.92 Alpha fetoprotein, maternal Alpha fetoprotein, maternal 4. 15 weeks gestation of ([facility]) Z3A.15 POCT urinalysis dipstick manually resulted 5. Screening, , for anatomic survey ([facility]) Z36.89 CANCELED: US OB 14+ weeks anatomy scan CANCELED: US OB 14+ weeks anatomy scan Return OB/Annual Exam: Patient presents today for a annual exam/routine obstetrics appointment. Patient is currently [id number]. Patient states she is doing well but [...] of: Uriel Meade DO documented in this encounterSac-Osage [id number] NoteDischarge Summary SHORT STAY SUMMARY: 08/14/2024 The patient is a 28-year-old 3, para 1 white female who presented to the Emergency Room at 14 weeks' gestation, a patient of Dr. Meade. She had been having nausea and vomiting. She had been seen at [facility] and then at [facility] and in followup with her regular GEOPHYSICS SCIENTIST Dr. Meade. She presents with continued nausea and vomiting. She also has chest discomfort from her vomiting, has a long history of anxiety and other problems and a long history of tetrahydrocannabinol use. She does not hold the opinion that her nausea and vomiting are secondary to her tetrahydrocannabinol use, although she spends a lot of time in a hot shower, and when she discontinued her use it went away, but when she reactivated her tetrahydrocannabinol use it came back. She was admitted for fluids and antiemetics and control of her chest discomfort. On evaluation here the temperature was 37.1, pulse 86, respirations 17, blood pressure 128/88. Pulse oximetry was excellent at 96. Normal lungs. Heart regular rate and rhythm. Abdomen soft. Positive heart tones. Extremities negative. She was controlled with antiemetics (Phenergan, Zofran, Protonix); given potassium, lidocaine patches, and capsaicin topical; and she had intermittent excellent control for several hours, and then she would wake up and repeat her need for a hot shower and repeat the process. She eventually decided that she was going to leave. She had been hydrated and was in stable medical shape, and she was going to seek attention elsewhere if necessary. She was discharged on her recognizance to contact Dr. Meade and was attempting to get her seen sooner by Maternal- Medicine, and she already has appointments with them. She was to call for any immediate concerns, any immediate problems. Saundra Verdugo M.D. ca Dictated: 08/16/2024 [id number] Transcribed: 08/17/2024[facility] CenterComment on above:Result Comment: Electronically Signed By: Lucina ELLISON, Saundra Peace\.br\Date and Time Signed: 08/20/24 07:19 [id number] Plan of care note* Care Plan - Isabella Harris RN - 08/15/2024 9:46 PM EDT Problem: Antepartum Goal: Maintain as long as maternal and/or condition is stable Outcome: Progressing Goal: Avoid/minimize constipation Outcome: Progressing Goal: No decrease in circulation/VTE Outcome: Progressing Goal: FHR remains reassuring Outcome: Progressing Goal: Minimize anxiety/maximize coping Outcome: Progressing [facility] Work Phone: [phone]) 475-848506-13-2025 Miscellaneous Notes* Care Plan - Isabella Harris RN - 08/15/2024 9:46 PM EDT Problem: Antepartum Goal: Maintain as long as maternal and/or condition is stable Outcome: Progressing Goal: Avoid/minimize constipation Outcome: Progressing Goal: No decrease in circulation/VTE Outcome: Progressing Goal: FHR remains reassuring Outcome: Progressing Goal: Minimize anxiety/maximize coping Outcome: Progressing * Care Plan - Brittany Diez RN [...] of it down. * Significant Event - Krupa Hathaway MD - 08/15/2024 4:00 PM EDT [...] 08/15/2024 6:09 PM EDT documented in this encounterPro[facility] Work Phone: [phone] 518-386806-13-2025 Hospital Discharge instructions* Discharge Instr - AVS First Page* Isabella [...] or unable to cope documented in this encounterPro[facility] Work Phone: [phone]) 678-790006-13-2025 Nurse Note* Brittany Diez RN - 08/15/2024 7:31 PM EDT Patient wants to constantly be in the shower.Requesting her cream that I reordered from phsrmacy. [facility] Work Phone: [phone] Nurse Note* Brittany Diez RN - 08/15/2024 7:31 PM EDT Patient wants to constantly be in the shower.Requesting her cream that I reordered from [facility]. documented in this encounterPro[facility] Work Phone: [phone]) [phone] Plan of care note* Care Plan - Brittany Diez RN - [...] might have kept half of it down. [facility] Work Phone: [phone]) 724-166206-13-2025 senior center manager Note* Significant Event - Kruap Hathaway MD - 08/15/2024 4:00 PM EDT [...] Engel MD at 08/15/2024 6:09 PM EDT [facility] Work Phone: [phone]) 559-450206-13-2025 Consult note* Shanel Hollins MD - 08/15/2024 8:06 AM EDT 08/15/2024 Indu Jorgensen [facility] CONSULT NOTE HPI: Indu Jorgensen is a 28 y.o. at 14w1d here [...] Vitals BP 134/80 Pulse 88 Temp 37 C (98.6 F) (Temporal) Resp 20 Ht 1.676 m (5' 6 ) Wt 52.6 kg (116 lb) SpO2 97% BMI 18.72 kg/m OB Status Smoking Status Never BSA 1.56 m Physical exam General - sitting in bed rocking back and forth in pain CV - regular rate Resp - tripod positioning while vomiting. No audible wheezes Abd - soft, no masses, tenderness to palpation in the RUQ and epigastric area. No rebound. No guarding. No tenderness in her lower abdominal area. Skin - no rashes FHT: obtain on admission US ASSESSMENT & PLAN Indu Jorgensen is a 28 y.o. at 14w1d who [...] Assessment & Plan 14 weeks gestation of ([facility]) Patient was seen and evaluated with Dr. Jaime Hollins MD Maternal Medicine [1] Patient Active Problem List Diagnosis 14 weeks gestation of ([facility]) [2] Past Surgical History: Procedure Laterality Date [...] Drug use: Yes Types: Marijuana Cosigned by Rosmery Sandoval MD at 08/15/2024 9:31 AM EDT Associated attestation - Rosmery Sandoval MD - 08/15/2024 9:31 AM EDT [...] following: See attending addendum on admission H&P. Rosmery Sandoval MD Maternal Medicine Director of Intervention [facility] Work Phone: [phone] 713-511906-13-2025 Consult note* Shanel Hollins MD - 08/15/2024 8:06 AM EDT 08/15/2024 Indu Jorgensen [facility] CONSULT NOTE HPI: Indu Jorgensen is a 28 y.o. at 14w1d here [...] Vitals BP 134/80 Pulse 88 Temp 37 C (98.6 F) (Temporal) Resp 20 Ht 1.676 m (5' 6 ) Wt 52.6 kg (116 lb) SpO2 97% BMI 18.72 kg/m OB Status Smoking Status Never BSA 1.56 m Physical exam General - sitting in bed rocking back and forth in pain CV - regular rate Resp - tripod positioning while vomiting. No audible wheezes Abd - soft, no masses, tenderness to palpation in the RUQ and epigastric area. No rebound. No guarding. No tenderness in her lower abdominal area. Skin - no rashes FHT: obtain on admission US ASSESSMENT & PLAN Indu Jorgensen is a 28 y.o. at 14w1d who [...] BHB negative - GI consulted, appreciate recommendations. M team OK with EGD in to help [...] Assessment & Plan 14 weeks gestation of ([facility]) Patient was seen and evaluated with Dr. Jaime Hollins MD Maternal Medicine [1] Patient Active Problem List Diagnosis 14 weeks gestation of ([facility]) [2] Past Surgical History: Procedure Laterality Date [...] Drug use: Yes Types: Marijuana Cosigned by Rosmery Sandoval MD at 08/15/2024 9:31 AM EDT Associated attestation - Rosmery Sandoval MD - 08/15/2024 9:31 AM EDT [...] following: See attending addendum on admission H&P. Rosmery Sandoval MD Maternal Medicine Director of Intervention documented in this encounterPro[facility] Work Phone: 1([phone]) 346-225606-13-2025 History and physical note* Rose Claire MD - 08/15/2024 3:13 AM EDT Obstetrical Admission History and Physical Indu Jorgensen is a 28 y.o. at 14w1d with Estimated Date of Delivery: 02/12/25. She was admitted in the setting of gradually worsening chronic abdominal/chest pain leading to persistent vomiting. ASSESSMENT AND PLAN Chest/Abdominal Pain, Vomiting - persistent vomiting caused by persistent abdominal pain. Patient states she has no nausea. Unclear etiology, but GI in source, possibly esophageal spasms. Cf vanessa jeffers tears with bleeding and longstanding history of [...] home seroquel and olanzapine continued - euthymic Amine Sahmoud, PGY4 OBGYN To be Seen and discussed [...] Vitals BP 121/74 Pulse 82 Temp 36.8 C (98.3 F) Resp 20 Physical Examination Abdomen: tender to [...] Insecurity: No Food Insecurity (07/07/2024) Received from [facility] Hunger Vital Sign Worried About Running Out of Food in the Last Year: Never true Ran Out of Food in the Last Year: Never true Transportation Needs: No Transportation Needs (07/07/2024) Received from [facility] PRAPARE - Transportation Lack of Transportation (Medical): No Lack of Transportation (Non-Medical): No Physical Activity: Insufficiently Active (07/06/2024) Received from [facility] Exercise Vital Sign Days of Exercise [...] OR prochlorperazine OR prochlorperazine, simethicone Cosigned by Rosmery Sandoval MD at 08/15/2024 9:09 AM EDT Associated attestation - Rosmery Sandoval MD - 08/15/2024 9:09 AM EDT [...] cyclic in nature and given persistence aMallory Jeffers tear is possible. Recommend: - GI consult with strong preference for a scope to assess the esophagus. - Maternal echo. - One time dose of IV toradol, if underlying pericarditis should feel some improvement. Rosmery Sandoval MD Maternal Medicine Director of Intervention [facility] Work Phone: [phone] History and physical note* Rose Claire MD - 08/15/2024 3:13 AM EDT Obstetrical Admission History and Physical Indu Jorgensen is a 28 y.o. at 14w1d with Estimated Date of Delivery: 02/12/25. She was admitted in the setting of gradually worsening chronic abdominal/chest pain leading to persistent vomiting. ASSESSMENT AND PLAN Chest/Abdominal Pain, Vomiting - persistent vomiting caused by persistent abdominal pain. Patient states she has no nausea. Unclear etiology, but GI in source, possibly esophageal spasms. Cf vanessa jeffers tears with bleeding and longstanding history of [...] Vitals BP 121/74 Pulse 82 Temp 36.8 C (98.3 F) Resp 20 Physical Examination Abdomen: tender to [...] Insecurity: No Food Insecurity (07/07/2024) Received from [facility] Hunger Vital Sign Worried About Running Out of Food in the Last Year: Never true Ran Out of Food in the Last Year: Never true Transportation Needs: No Transportation Needs (07/07/2024) Received from [facility] PRAPARE - Transportation Lack of Transportation (Medical): No Lack of Transportation (Non-Medical): No Physical Activity: Insufficiently Active (07/06/2024) Received from [facility] Exercise Vital Sign Days of Exercise [...] OR prochlorperazine OR prochlorperazine, simethicone Cosigned by Rosmery Sandoval MD at 08/15/2024 9:09 AM EDT Associated attestation - Rosmery Sandoval MD - 08/15/2024 9:09 AM EDT [...] cyclic in nature and given persistence aMallory Jeffers tear is possible. Recommend: - GI consult with strong preference for a scope to assess the esophagus. - Maternal echo. - One time dose of IV toradol, if underlying pericarditis should feel some improvement. Rosmery Sandoval MD Maternal Medicine Director of Intervention documented in this encounterPro[facility] Work Phone: [phone]) 289-682506-12-2025 Emergency department Triage note* Wilian Loredo RN - 08/14/2024 10:07 PM [...] states that she is 14 weeks . [facility] Work Phone: [phone]) 323-513906-12-2025 Emergency department Note* Wilian Loredo RN - 08/14/2024 10:07 PM [...] is 14 weeks . documented in this encounterPro[facility] Work Phone: [phone]) 146-535006-12-2025 Hospital Discharge instructions Patient Education 08/14/2024 19:02:28 Cyclic Vomiting Syndrome, Adult Cyclic Vomiting Syndrome, Adult Cyclic vomiting syndrome (CVS) is a condition that causes episodes of severe nausea and vomiting. It can last for hours or even days. Attacks may occur several times a month or several times a year. Between episodes of CVS, you may be otherwise healthy. What are the causes? The cause of this condition is not known. Although many of the episodes can happen for no obvious reason, you may have specific CVS triggers. Episodes may be triggered by: An infection, especially colds and the flu. Emotional stress, including excitement or anxiety about finances, relationships, or moving. Certain foods or beverages, such as chocolate, cheese, alcohol, and food additives. Food allergies. Motion sickness. Eating a large meal before bed. Being very tired. Being overheated. Menstruation. Long-term cannabis use. What increases the risk? You are more likely to develop this condition if: You get migraine headaches. You have a family history of CVS or migraine headaches. What are the signs or symptoms? Symptoms tend to happen at the same time of day, and each episode tends to last about the same amount of time. Symptoms commonly start at night or when you wake up. Many people have warning signs (prodrome) before an episode, which may include slight nausea, sweating, and pale skin (pallor). The most common symptoms of a CVS attack include: Severe vomiting. Vomiting may happen every 5 15 minutes. Severe nausea. Gagging (retching). Other symptoms may include: Headache. Dizziness. Sensitivity to light or sound. Abdominal pain. This can be severe. Loose stools or diarrhea. Weakness or exhaustion. Dehydration. This can cause: ?Thirst. ?Dry mouth. ?Decreased urination. ?Fatigue. How is this diagnosed? This condition may be diagnosed based on your symptoms, medical history, and family history of CVS or migraine. Your health care provider will ask whether you have had: Episodes of severe nausea and vomiting that have happened a total of 5 or more times, or 3 or more times in the past 6 months. Episodes that last for 1 hour or more, and occur 1 week apart or further apart. Episodes that are similar each time. Normal health between episodes. Your health care provider will also do a physical exam. To rule out other conditions, you may have tests, such as: Blood tests. Urine tests. Imaging tests. How is this treated? There is no cure for this condition, but treatment can help manage or prevent CVS episodes. Work with your health care provider to find the best treatment for you. Treatment may include: Avoiding stress and CVS triggers. Eating smaller, more frequent meals. Taking medicines, such as: ?Anti-nausea medicines. ?Antacids. ?Antidepressants. ?Antihistamines. ?Medicines for migraines. ?Wulw-xau-zwsgznb pain medicine. ?Over-the counter diet supplements. Severe nausea and vomiting may require you to stay at the hospital. You may need IV fluids to prevent or treat dehydration. Follow these instructions at home: During an episode Take gftq-fpz-psrgwig and prescription medicines only as told by your health care provider. Stay in bed and rest in a dark, quiet room. After an episode Drink an oral rehydration solution (ORS), if directed by your health care provider. This is a drinkthat helps you replace fluids and the salts and minerals in your blood (electrolytes). It can be found at pharmacies and retail stores. Drink small amounts of clear fluids slowly and gradually add more. ?Drink clear fluids such as water or fruit juice that has water added (is diluted). You may also eat low-calorie popsicles. ?Avoid drinking fluids that contain a lot of sugar or caffeine, such as sports drinks and soda. Eat soft foods in small amounts every 3 4 hours. Eat your regular diet, but avoid spicy or fatty foods, such as albanian fries and pizza. General instructions Monitor your condition for any changes. Keep track of your attacks and symptoms, and pay attention to any triggers. Avoid those triggers when you can. If you use cannabis, stop using it right away. Ending cannabis use can reduce or even stop your cyclic vomiting syndrome. Keep all follow-up visits. This is important. Where to find more information Cyclic Vomiting Syndrome Association: cvsaonline.org Contact a health care provider if: Your condition gets worse. You cannot drink fluids without vomiting. You have pain and trouble swallowing after an episode. Get help right away if: You have blood in your vomit. Your vomit looks like coffee grounds. You have stools that are bloody or black, or stools that look like tar. You have signs of dehydration, such as: ?Sunken eyes. ?Not making tears while crying. ?Very dry mouth or cracked lips. ?Decreased urine production. ?Dark urine. Urine may be the color of tea. ?Weakness. ?Sleepiness. These symptoms may be an emergency. Get help right away. Call 911. Do not wait to see if the symptoms will go away. Do not drive yourself to the hospital. Summary Cyclic vomiting syndrome (CVS) causes episodes of severe nausea and vomiting that can last for hours or even days. Treatment can help you manage or prevent CVS episodes. Work with your health care provider to find the best treatment for you. Vomiting and diarrhea can make you feel weak and can lead to dehydration. If you notice signs of dehydration, call your health care provider right away. Keep all follow-up visits This is important. This information is not intended to replace advice given to you by your health care provider. Make sure you discuss any questions you have with your health care provider. Document Revised: 09/28/2021 Document Reviewed: 09/28/2021 [employer] Patient Education 2023 Apptive Follow Up Care 08/14/2024 01:38:58 With:Uriel MEADE Address: [address] [place] [address] [facility] (1) When:08/26/2024 Comments:Call for any problems. [facility] [id number] NoteDischarge Instructions Given Worsening The following Patient Education Materials have been given to the patient: ~~ [facility] NoteDischarge Instructions Given Worsening The following Patient Education Materials have been given to the patient: ~~ [facility]06-12-2025 Evaluation + Plan note Extracted from:Title:ED NoteAuthor:Bk Garduno DODate:08/14/24 Acute hypokalemia (E87.6: Hy pokalemia) Acute vomiting (R11.10: Vomiting, unspecified) Orders: famotidine, 20 mg = 2 mL, Soln-IV, IV Push, Once, Stop date 08/14/24 2:56:00 EDT, STAT, Start date 08/14/24 2:56:00 EDT, Infuse over 2 minute(s), 08/14/24 2:56:00 EDT HYDROmorphone, 0.5 mg = 0.5 mL, Injection, IV Push, Once, Stop date 08/14/24 2:56:00 EDT, STAT, Start date 08/14/24 2:56:00 EDT, 08/14/24 2:56:00 EDT HYDROmorphone, 0.5 mg = 0.5 mL, Injection, IV Push, Once, Stop date 08/14/24 4:45:00 EDT, STAT, Start date 08/14/24 4:45:00 EDT, 08/14/24 4:45:00 EDT hyoscyamine, 0.125 mg = 1 tab(s), Tab, SubLingual, Once, Stop date 08/14/24 5:46:00 EDT, STAT, Start date 08/14/24 5:46:00 EDT, 08/14/24 5:46:00 EDT Lactated Ringers Injection 1,000 mL, 1,000 mL, IV, 999 mL/hr, STAT, Start date 08/14/24 3:52:00 EDT, 1 hour(s), Total volume (mL): 1,000, 53 kg, 1.57, m2 magnesium sulfate + Generic Diluent 50 mL, 2 gram = 50 mL, IV Piggyback, Once, Stop date 08/14/24 4:19:00 EDT, STAT, Start date 08/14/24 4:19:00 EDT, 25 mL/hr, Infuse over 2 hour(s), 08/14/24 4:19:00EDT potassium chloride + Generic Diluent 100 mL, 20 mEq = 100 mL, IV Piggyback, q2hr for 2 dose(s), Stop date 08/14/24 8:18:00 EDT, STAT, Start date 08/14/24 4:19:00 EDT, 50 mL/hr, Infuse over 2 hour(s),08/14/24 4:19:00 EDT promethazine 12.5 mg + Sodium Chloride 0.9% intravenous solution 50 mL, Injection, IV Piggyback, Once, Stop date 08/14/24 2:56:00 EDT, STAT, Start date 08/14/24 2:56:00 EDT, 151.5 mL/hr, Infuse over 20 minute(s) Basic Metabolic Panel CBC w/ Auto Diff Drug Screen Urine ECG 12 Lead Adult eGFR Extra Blue Tube Extra SST Tube Hepatic Function Panel Lipase Level Troponin UA with Cult Rflx Addendum by Boo Pina M.D. on August 14, 2024 11:42:18 EDT The care of the patient was transitioned to me upon shift change to follow-up with reevaluation andfinal disposition. The patient was seen by me. She is 14 weeks . The patient states she still smokes marijuana however she does not believe the marijuana is the cause of her vomiting. The patient has received potassium IV. She has leukocytosis more likely reactive. Her abdomen is soft. The patient is complaining of chest pain which is chronic for months. She states her primary doctor thinks that she might have hiatal hernia. The patient continues to vomit in the emergency room. Another dose of Phenergan was given. The case was discussed with Dr. Verdugo who admitted patient to the OB. [facility] 06-12-2025 NoteProgress Note-Nurse Patient: INDU ST Age: 28 years Sex: Female : 1995 Associated Diagnoses: None Author: Polly WHITE, Gay Progress Note pt messaged Dr Meade and informed him she wants to terminate the , cannot deal with pain. States is having chest pain makes nauseous and vomiting. Has medical card and uses it for pain and nausea. Dr Meade did call patient and discussed getting in to see high risk sooner than September 02. Pt appears more calm after conversation with Dr Meade. States chest pain is constant.[facility]05[facility] History of Present illness Narrative* Shari Gomez LPN - 07/30/2024 2:00 PM EDT Reason for Appointment: Patient ID: Indu Jorgensen is a 28 y.o. female who presents [...] QUEtiapine (SEROQUEL) 50 mg, 2 times daily sucralfate (CARAFATE) 1 g, Oral, 4 times daily ALLERGIES Allergies Allergen Reactions Dust Mite Extract Unknown PROBLEMS Active Ambulatory Problems Diagnosis Date Noted Bipolar 1 disorder ([facility]) 11/13/2022 Anxiety 12/21/2022 Asthma 12/21/2022 Attention deficit hyperactivity disorder (ADHD), combined type ([facility]) 12/21/2022 Proteinuria 08/03/2010 PTSD (post-traumatic stress disorder) ([facility]) 12/21/2022 Bipolar affective disorder, current episode hypomanic ([facility]) 12/21/2022 Well woman exam with routine gynecological exam 03/19/2023 Myalgia 02/18/2024 Fallopian tube disorder 03/13/2024 Anovulation 03/13/2024 Female infertility 03/13/2024 Resolved Ambulatory Problems Diagnosis Date Noted No Resolved Ambulatory Problems Past Medical History: Diagnosis Date Abnormal uterine bleeding (AUB) ADHD (attention deficit hyperactivity disorder) ([facility]) Amenorrhea Bilateral sacroiliitis Cervical cancer ([facility]) Chronic fatigue Chronic rhinitis Chronic vaginitis Depression with anxiety Endometriosis Gynecological disorder History of medical problems Infertility counseling Low libido Miscarriage S/P laparoscopy Sciatica, unspecified side Seasonal allergic rhinitis, unspecified trigger Serous otitis media, unspecified chronicity, unspecified laterality URI (upper respiratory infection) 03/01/2019 HISTORY PAST MEDICAL HISTORY SOCIAL HISTORY Past Medical History: Diagnosis Date Abnormal uterine bleeding (AUB) ADHD (attention deficit hyperactivity disorder) ([facility]) Amenorrhea Bilateral sacroiliitis Cervical cancer ([facility]) Chronic fatigue Chronic rhinitis Chronic vaginitis Depression with anxiety Depression/Anxiety Endometriosis Gynecological disorder History of medical problems Question of bipolar disorder Infertility counseling Low libido Miscarriage S/P laparoscopy Sciatica, unspecified side Seasonal allergic rhinitis, unspecified trigger Serous otitis media, unspecified chronicity, unspecified laterality URI (upper respiratory infection) 03/01/2019 [facility] - ER Social History [...] 03/2020 lap, D and C - at [facility] DILATION AND CURETTAGE OF UTERUS 03/07/2013 ; 08/13/2015 DILATION AND CURETTAGE OF UTERUS 10/27/2022 EGD 11/2023 HYSTEROSCOPY 06/12/2016 Laproscopy/hysterscopy REVIEW OF SYSTEMS Review of Systems: Review of Systems Constitutional: Negative. HENT: Negative. Eyes: Negative. Respiratory: Negative. Cardiovascular: Negative. Gastrointestinal: Positive for nausea and vomiting. Genitourinary: Negative. Musculoskeletal: Negative. Skin: Negative. Neurological: Negative. Psychiatric/Behavioral: Positive for agitation. The patient is nervous/anxious. All other systems reviewed and are negative. [...] nursing note reviewed. Exam conducted with a exterminator helper termite present. Vitals: Estimated body mass index is 19.17 kg/m as calculated from the following: Height as of 04/14/24: 5' 6 . Weight as of this encounter: 118 lb 12.8 oz. BP: 126/74 No LMP recorded. Patient is . ASSESSMENT & PLAN ICD-10-CM 1. First trimester Z34.91 POCT urinalysis dipstick manually resulted 2. 11 weeks gestation of Z3A.11 3. Nausea and vomiting, unspecified vomiting type R11.2 4. Hyperemesis of O21.0 5. Encounter for in vitro fertilization Z31.83 6. Anxiety, generalized (CMS/HCC) F41.1 New OB: Patient presents today for 1st time obstetrics appointment with provider. Patient is currently 11w6d . Patients history has been reviewed in great detail including any potential risks. Patient stated she currently has no complaints. Expectations throughout regarding labs, ultrasounds, and appointments have been discussed with the patient in detail. It was reiterated that the patient is to drink 6-8 glasses of water a day, eat 6 small meals a day, do not consume raw or undercooked meat, and stay away from [facility]. Patient has been consulted regarding any further do's and don'tsof . Patient voiced understanding and all questions and concerns were answered. Pt to be re ferred to [facility] for high risk- IVF, hyperemesis, mental health disorders. Pt to start zofran pump, losing appetite and or constant vomiting. Pt sees psychiatrist tomorrow, PCP wanted to prescribe clonapin, category D. Pt to see [facility] for medication management, pt advised to come off of seroquel. Rx forbuspar faxed to pharmacy Orders Placed This Encounter Procedures POCT urinalysis dipstick manually resulted Follow Up: Patient is to return in 4 weeks for routine OB appointment. Documented by Shari Gomez LPN on behalf of: Uriel Meade DO documented in this encounterSac-Osage [id number] History of Present illness Narrative* Clementina López LPN - 07/17/2024 2:30 PM EDT Reason for Appointment: Patient ID: Indu Jorgensen is a 28 y.o. female who presents for Amenorrhea Patient presents today for a Nurse OB Intake appointment. Patient is Unknown with a Estimated Date of Delivery: None noted. OB History Para Term AB Living 3 1 1 1 1 SAB IAB Ectopic Multiple Live Births 1 1 # Outcome Date GA Lbr Andrey/2nd Weight Sex Type Anes PTL Lv 3 Current 2 SAB 2016 1 Term 10/11/13 8 lb 12 oz F Vag-Spont [place] Current Medications: has a current medication list which includes the following prescription(s): alprazolam, aripiprazole, breyna, cholecalciferol, fish oil concentrate, metoclopramide, ondansetron odt, vitamins, and sucralfate. Medical History: Active Ambulatory Problems Diagnosis Date Noted Bipolar 1 disorder ([facility]) 11/13/2022 Anxiety 12/21/2022 Asthma 12/21/2022 Attention deficit hyperactivity disorder (ADHD), combined type ([facility]) 12/21/2022 Proteinuria 08/03/2010 PTSD (post-traumatic stress disorder) ([facility]) 12/21/2022 Bipolar affective disorder, current episode hypomanic ([facility]) 12/21/2022 Well woman exam with routine gynecological exam 03/19/2023 Myalgia 02/18/2024 Fallopian tube disorder 03/13/2024 Anovulation 03/13/2024 Female infertility 03/13/2024 Resolved Ambulatory Problems Diagnosis Date Noted No Resolved Ambulatory Problems Past Medical History: Diagnosis Date Abnormal uterine bleeding (AUB) ADHD (attention deficit hyperactivity disorder) ([facility]) Amenorrhea Bilateral sacroiliitis Cervical cancer ([facility]) Chronic fatigue Chronic rhinitis Chronic vaginitis Depression [...] 03/2020 lap, D and C - at [facility] DILATION AND CURETTAGE OF UTERUS 03/07/2013 ; 08/13/2015 DILATION AND CURETTAGE OF UTERUS 10/27/2022 EGD 11/2023 HYSTEROSCOPY 06/12/2016 Laproscopy/hysterscopy Allergies Allergen Reactions Dust Mite Extract Unknown Vitals: Estimated body mass index is 18.4 kg/m as calculated from the following: Height as of 04/14/24: 5' 6 . Weight as of 06/24/24: 114 lb. BP: No LMP recorded. Patient is . Assessment/Plan Diagnoses and all orders for this visit: Missed menses Nurse Note: OB Intake: Patient presents today for first OB visit. Patients history has been reviewed in great detail including any potential risks. Patient signed consent forms and patient desires testing in both trimesters. Patient currently has no complaints and has been advised to drink 6-8 glasses of water a day, eatno raw or undercooked meat, and stay away from [facility] [place]. Patient has also been advised to not change litter boxes and eat 6 small meals a day. Patient has been consulted regarding the do's and don'ts ofpregnancy. Patient was given labs and all questions and concerns were answered. Follow Up: Patient is to return in 4 weeks for routine OB appointment. Follow Up: Patient is to have labs drawn at directed and return to office for initial OB appointment with provider. Patient may call office as needed with any concerns or questions. Nurse Visit Completed by: Clementina López LPN documented in this encounterSac-Osage [id number] NoteDischarge Summary Admission and Discharge Information Admitting Physician - Samantha QUINN DO Consulting Physician - MONTSERRAT ELLISON, JADE Verdugo MD, Saundra Peace Admitting Diagnoses: Discharge Diagnoses 1. Hyperemesis gravidarum, 06/21/2024 2. Cannabis hyperemesis syndrome concurrent with and due to cannabis abuse, 06/21/2024 3. Esophagitis, 06/19/2024 4. Intractable vomiting, 06/19/2024 5. First trimester , 06/19/2024 6. On deep vein thrombosis (DVT) prophylaxis, 06/19/2024 Abdominal pain - , 06/19/2024 Epigastric Pain, 06/19/2024 Nausea and vomiting, 06/19/2024 Procedure History Colonoscopy (10/15/2023), Esophagogastroduodenoscopy (10/15/2023), Tonsillectomy and adenoidectomy. Hospital Course Patient is a 28-year-old female (on third in first trimester. Reports 1 live and 1 previous miscarriage) who was admitted with intractable nausea and vomiting likely secondary toesophagitis/gastritis with associated epigastric and esophageal pain. OB consulted. Admitted for 1724. Be diagnosed hyperemesis gravidarum. Also on further discussion patient daily smokes cannabis and believed cannabis hyperemesis syndrome was a major contributing factor to her acute illness. She had very difficult to control nausea and abdominal pain. Required significant amount of supportive medication including Carafate 4 times daily, famotidine twice daily, Protonix, Zofran, Keppra. Ultimately settled on scheduled Zofran, Reglan, IV fluids, famotidine and Protonix twice daily, Carafate 4 times daily, as needed Dilaudid. Her symptoms improved significantly with this. She was medically stable for discharge home on 06/22/2024. She was alerting a diet. She communicated to me that she had plans to continue smoking marijuana to manage her symptoms. Smokes marijuana daily. Counseled on cessation and that cannabis hyperemesis syndrome can remain even 3 months after cessation. Patient aware of risks and voiced her understanding. OB has also spokenwith the patient about this Follow-up OB in 1 to 2 weeks. They are arranging for the Zofran pump if necessary PCP in 7 to 10 days Medications Famotidine 20 mg p.o. twice daily Reglan 5 mg p.o. 4 times daily Zofran 4 mg p.o. every 6 hours Pantoprazole 40 mg p.o. daily Carafate 1 g liquid solution 4 times daily ACHS Oxycodone 5 mg p.o. every 12 hours as needed dispense 6 caps.???Per OB Naloxone nasal spray kit Physical Exam General: alert, no acute distress ENMT: Normocephalic atraumatic, oral mucosa moist Cardiovascular: regular rate and rhythm, no murmur, normal peripheral perfusion Respiratory: Lungs CTA, respirations non labored GI: Epigastric tenderness to palpation. Normal bowel sounds. No acute abdomen. No rebound tenderness. : Not examined. Did report some greenish vaginal discharge 06/20 morning after her ultrasound. Deferred to OB Extremities: no deformity, no trauma, no edema Neurological: oriented x 4, LOC appropriate for age, CN II-XII intact, motor strength equal & normal bilaterally, sensation equal & normal bilaterally, speech normal Tests Performed US Gallbladder US Transvaginal XR Chest Single View Discharge Plan Discharge Disposition Discharge To, Anticipated II - Home independently Discharged to - Home with family care Discharge Diet Discharge Diet(s): Regular (06/21/24 15:04:00) Discharge Medication List Prescriptions Boost/Ensure, 0, BIDAC Carafate 1 g/10 mL Susp-Oral, 1 gm= 10 mL, Oral, QIDACHS famotidine 20 mg Tab, 20 mg= 1 tab(s), Oral, BID MiraLax 3350 Oral Pwdr for Recon 249 gram, 17 gm, Oral, Daily naloxone 4 mg/0.1 mL nasal spray, 4 mg, Nasal, As Directed oxyCODONE 5 mg Cap, 5 mg= 1 cap(s), Oral, q12hr, PRN Protonix 40 mg Tab-DR, 40 mg= 1 tab(s), Oral, Daily Reglan 5 mg Tab, 5 mg= 1 tab(s), Oral, QID Zofran ODT 4 mg Tab-Dis, 4 mg= 1 tab(s), Oral, q6hr Home Fish Oil, 500 mg, Oral, Daily 19 ([place]), See Instructions Follow-up With When Contact Information Uriel MEADE Within [address] to [address] , [place] [address]- Business (1) Additional Instructions: Call for followup appointment Carolyne Collazo Within 7 to [address] [place] [phone]- Business (1) Additional Instructions: Call for followup appointment Patient Education Hyperemesis Gravidarum Esophagitis Cannabinoid Hyperemesis Syndrome Attestation I spent 40 minutes on care including chart review, order, documentation, exam, discussion of care plan with OB, patient, and her .[facility] CenterComment on above:Result Comment: Electronically Signed By: Josh Gilbert III, DO.br\Date and Time Signed: 07/06/24 20:23 [id number] History of Present illness Narrative* Shari Gomez LPN - 06/24/2024 3:20 PM EDT Reason for Appointment: Patient ID: Indu Jorgensen is a 28 y.o. female who presents for ER Follow-up (Pt present today for an ER follow up. Pt was seen at [facility] on 06/19/2024 for hyperemesis w/.) Patient presents today for Acute Visit. and Consult appointment. MEDICATIONS Current Outpatient Medications Medication Instructions ALPRAZolam (Xanax) 0.5 MG tablet 1 tablet Orally Twice a day as needed for anxiety for 30 days ARIPiprazole (ABILIFY) 5 mg, Oral, Daily budesonide-formoterol (Breyna) 80-4.5 MCG/ACT inhaler 2 puffs, Inhalation, Daily, Rinse mouth with water after use to reduce aftertaste and incidence of candidiasis. Do not swallow. cholecalciferol (VITAMIN D-3) 25 mcg, Oral, Daily fish oil concentrate 1 g, Oral, Daily metoclopramide (REGLAN) 10 mg ondansetron ODT (ZOFRAN-ODT) 4 mg, Oral, Every 6 hours PRN Vit-Fe Fumarate-FA ( Vitamins) 28-0.8 MG tablet 1 tablet, Oral, Daily ALLERGIES Allergies Allergen Reactions Dust Mite Extract Unknown PROBLEMS Active Ambulatory Problems Diagnosis Date Noted Bipolar 1 disorder ([facility]) 11/13/2022 Anxiety 12/21/2022 Asthma 12/21/2022 Attention deficit hyperactivity disorder (ADHD), combined type ([facility]) 12/21/2022 Proteinuria 08/03/2010 PTSD (post-traumatic stress disorder) ([facility]) 12/21/2022 Bipolar affective disorder, current episode hypomanic ([facility]) 12/21/2022 Well woman exam with routine gynecological exam 03/19/2023 Myalgia 02/18/2024 Fallopian tube disorder 03/13/2024 Anovulation 03/13/2024 Female infertility 03/13/2024 Resolved Ambulatory Problems Diagnosis Date Noted No Resolved Ambulatory Problems Past Medical History: Diagnosis Date Abnormal uterine bleeding (AUB) ADHD (attention deficit hyperactivity disorder) ([facility]) Amenorrhea Bilateral sacroiliitis Cervical cancer ([facility]) Chronic fatigue Chronic rhinitis Chronic vaginitis Depression [...] deficit hyperactivity disorder) (CMS/HCC) Amenorrhea Bilateral sacroiliitis Cervical cancer (CMS/HCC) Chronic fatigue Chronic rhinitis Chronic vaginitis Depression with anxiety Depression/Anxiety Endometriosis Gynecological disorder History of medical problems Question of bipolar disorder Infertility counseling Low libido Miscarriage S/P laparoscopy Sciatica, unspecified side Seasonal allergic rhinitis, unspecified trigger Serous otitis media, unspecified chronicity, unspecified laterality URI (upper respiratory infection) 03/01/2019 [facility] - ER Social History [...] 03/2020 lap, D and C - at [facility] DILATION AND CURETTAGE OF UTERUS 03/07/2013 ; 08/13/2015 DILATION AND CURETTAGE OF UTERUS 10/27/2022 EGD 11/2023 HYSTEROSCOPY 06/12/2016 Laproscopy/hysterscopy REVIEW OF SYSTEMS Review of Systems: Review of Systems Constitutional: Negative. HENT: Negative. Eyes: Negative. Respiratory: Negative. Cardiovascular: Negative. Gastrointestinal: Positive for nausea and vomiting. Genitourinary: Negative. Musculoskeletal: Negative. Skin: Negative. Neurological: [...] nursing note reviewed. Exam conducted with a exterminator helper termite present. Vitals: Estimated body mass index is 18.4 kg/m as calculated from the following: Height as of 04/14/24: 5' 6 . Weight as of this encounter: 114 lb. BP: 100/60 No LMP recorded (exact date). ASSESSMENT & PLAN ICD-10-CM 1. Hospital discharge follow-up Z09 2. Hyperemesis of O21.0 POCT urinalysis dipstick manually resulted POCT , urine manually resulted 3. Hemorrhage in early , antepartum O20.9 4. Subchorionic hematoma in first trimester, single or unspecified fetus O41.8X10 O46.8X1 Pt presents as a ER follow up- pt newly - has an eating disorder and hyperemesis. Pt was having chest pain and seen in ER- no longer having chest pain. Pt advised to drink ensures, protein shakes, or muscle milk. Pt having regular infusions. Pt conceived via IVF- pt will sign to release records. Pt to return for initial OB- and ultrasound. Pt taking reglan, zofran, protonix, and pepcid. Documented by Shari Gomez LPN on behalf of: Uriel Meade DO documented in this encounterSac-Osage [id number] Hospital Discharge instructions Patient Education 06/21/2024 15:05:42 Hyperemesis Gravidarum Hyperemesis Gravidarum Hyperemesis gravidarum is a severe form of nausea and vomiting that happens during . Hyperemesis is worse than morning sickness. It may cause you to have nausea or vomiting all day for many days. It may keep you from eating and drinking enough food and liquids, which can lead to dehydration, malnutrition, and weight loss. Hyperemesis usually occurs during the first half (the first 20 weeks) of . It often goes away once a woman is in her second half of . However, sometimes hyperemesis continues through an entire . What are the causes? The cause of this condition is not known. It may be associated with: Changes in hormones in the body during . Changes in the gastrointestinal system. Genetic or inherited conditions. What are the signs or symptoms? Symptoms of this condition include: Severe nausea and vomiting that does not go away. Problems keeping food down. Weight loss. Loss of body fluid (dehydration). Loss of appetite. You may have no desire to eat or you may not like the food you have previously enjoyed. How is this diagnosed? This condition may be diagnosed based on your medical history, your symptoms, and a physical exam. You may also have other tests, including: Blood tests. Urine tests. Blood pressure tests. Ultrasound to look for problems with the placenta or to check if you are with more than one baby. How is this treated? This condition is managed by controlling symptoms. This may include: Following an eating plan. This can help to lessen nausea and vomiting. Treatments that do not use medicine. These include acupressure bracelets, hypnosis, and eating or drinking foods or fluids that contain martín, martín oliverio, or martín tea. Taking prescription medicine or tbja-ooa-asrdjad medicine as told by your health care provider. Continuing to take vitamins. You may need to change what kind you take and when you take them. Follow your health care provider's instructions about vitamins. An eating plan and medicines are often used together to help control symptoms. If medicines do not help relieve nausea and vomiting, you may need to receive fluids through an IV at the hospital. Follow these instructions at home: To help relieve your symptoms, listen to your body. Everyone is different and has different preferences. Find what works best for you. Here are some things you can try to help relieve your symptoms: Meals and snacks Eat 5 6 small meals daily instead of 3 large meals. Eating small meals and snacks can help you avoid an empty stomach. Before getting out of bed, eat a couple of crackers to avoid moving around on an empty stomach. Eat a protein-rich snack before bed. Examples include cheese and crackers, or a peanut butter sandwich made with 1 slice of whole-wheat bread and 1 tsp (5 g) of peanut butter. Eat and drink slowly. Try eating starchy foods as these are usually tolerated well. Examples include cereal, toast, bread, potatoes, pasta, rice, and pretzels. Eat at least one serving of protein with your meals and snacks. Protein options include lean meats,poultry, seafood, beans, nuts, nut butters, eggs, cheese, and yogurt. Eat or suck on things that have martín in them. It may help to relieve nausea. Add tsp (0.44 g) ground martín to hot tea, or choose martín tea. Fluids It is important to stay hydrated. Try to: Drink small amounts of fluids often. Drink fluids 30 minutes before or after a meal to help lessen the feeling of a full stomach. Drink 100% fruit juice or an electrolyte drink. An electrolyte drink contains sodium, potassium, and chloride. Drink fluids that are cold, clear, and carbonated or sour. These include lemonade, martín oliverio, lemon rosebud soda, ice water, and sparkling water. Things to avoid Avoid the following: Eating foods that trigger your symptoms. These may include spicy foods, coffee, high-fat foods, very sweet foods, and acidic foods. Drinking more than 1 cup of fluid at a time. Skipping meals. Nausea can be more intense on an empty stomach. If you cannot tolerate food, do notforce it. Try sucking on ice chips or other frozen items and make up for missed calories later. Lying down within 2 hours after eating. Being exposed to environmental triggers. These may include food smells, smoky rooms, closed spaces,rooms with strong smells, warm or humid places, overly loud and noisy rooms, and rooms with motion or flickering lights. Try eating meals in a well-ventilated area that is free of strong smells. Making quick and sudden changes in your movement. Taking iron pills and multivitamins that contain iron. If you take prescription iron pills, do not stop taking them unless your health care provider approves. Preparing food. The smell of food can spoil your appetite or trigger nausea. General instructions [place] your teeth or use a mouth rinse after meals. Take peaw-agj-uhnmbcz and prescription medicines only as told by your health care provider. Follow instructions from your health care provider about eating or drinking restrictions. Talk with your health care provider about starting a supplement of vitamin B6. Continue to take your vitamins as told by your health care provider. If you are having trouble taking your vitamins, talk with your health care provider about other options. Keep all follow-up visits. This is important. Follow-up visits include visits. Contact a health care provider if: You have pain in your abdomen. You have a severe headache. You have vision problems. You are losing weight. You feel weak or dizzy. You cannot eat or drink without vomiting, especially if this goes on for a full day. Get help right away if: You cannot drink fluids without vomiting. You vomit blood. You have constant nausea and vomiting. You are very weak. You faint. You have a fever and your symptoms suddenly get worse. Summary Hyperemesis gravidarum is a severe form of nausea and vomiting that happens during . Making some changes to your eating habits may help relieve nausea and vomiting. This condition may be managed with lifestyle changes and medicines as prescribed by your health care provider. If medicines do not help relieve nausea and vomiting, you may need to receive fluids through an IV at the hospital. This information is not intended to replace advice given to you by your health care provider. Make sure you discuss any questions you have with your health care provider. Document Revised: 09/13/2020 Document Reviewed: 09/13/2020 [employer] Patient Education 2023 [email or web address]. 06/21/2024 15:05:31 Esophagitis Esophagitis Esophagitis is inflammation of the esophagus. The esophagus is the tube that carries food from the mouth to the stomach. Esophagitis can cause soreness or pain in the esophagus. This condition can make it difficult and painful to swallow. What are the causes? Most causes of esophagitis are not serious. Common causes of this condition include: Gastroesophageal reflux disease (GERD). This is when stomach contents move back up into the esophagus (reflux). Repeated vomiting. An allergic reaction, especially caused by food allergies (eosinophilic esophagitis). Injury to the esophagus by swallowing large pills with or without water, or swallowing certain types of medicines. Swallowing harmful chemicals, such as household cleaning products. Drinking a lot of alcohol. An infection of the esophagus. This most often occurs in people who have a weakened immune system. Radiation or chemotherapy treatment for cancer. Certain diseases such as sarcoidosis, Crohn's disease, and scleroderma. What are the signs or symptoms? Symptoms of this condition include: Difficult or painful swallowing. Pain with swallowing acidic liquids, such as citrus juices. You may also have pain when you burp. Chest pain and difficulty breathing. Nausea and vomiting. Pain in the abdomen. Weight loss. Ulcers in the mouth and white patches in the mouth (candidiasis). Fever. Coughing up blood or vomiting blood. Stool that is black, tarry, or bright red. How is this diagnosed? This condition may be diagnosed based on your medical history and a physical exam. You may also have other tests, including: A test to examine your esophagus and stomach with a small flexible tube with a camera (endoscopy). A test that measures the acidity level in your esophagus. A test that measures how much pressure is on your esophagus. A barium swallow or modified barium swallow to show the shape, size, and functioning of your esophagus. Allergy tests. How is this treated? Treatment for this condition depends on the cause of your esophagitis. In some cases, steroids or other medicines may be given to help relieve your symptoms or to treat the underlying cause of your condition. You may have to make some lifestyle changes, such as: Avoiding alcohol. Quitting any products that contain nicotine or tobacco. These products include cigarettes, chewing tobacco, and vaping devices, such as e-cigarettes. If you need help quitting, ask your health care provider. Changing your diet. Exercising. Changing your sleep habits and your sleep environment. Follow these instructions at home: Medicines Take ejtz-jpp-bhtwvoj and prescription medicines only as told by your health care provider. Do not take aspirin, ibuprofen, or other NSAIDs unless your health care provider told you to do so. If you have trouble taking pills: ?Use a pill splitter to decrease the size of the pill. This will decrease the chance of the pill getting stuck or injuring your esophagus. ?Drink water after you take a pill. Eating and drinking Avoid foods and drinks that seem to make your symptoms worse. Follow a diet as recommended by your health care provider. This may involve avoiding foods and drinks such as: ?Coffee and tea, with or without caffeine. ?Drinks that contain alcohol. ?Energy drinks and sports drinks. ?Carbonated drinks or sodas. ?Chocolate and cocoa. ?Peppermint and mint flavorings. ?Garlic and onions. ?Horseradish. ?Spicy and acidic foods, including peppers, chili powder, beauchamp powder, vinegar, hot sauces, and barbecue sauce. ?Wimer fruit juices and citrus fruits, such as oranges, brooke, and limes. ?Tomato-based foods, such as red sauce, chili, salsa, and pizza with red sauce. ?Fried and fatty foods, such as donuts, albanian fries, potato chips, and high-fat dressings. ?High-fat meats, such as hot dogs and fatty cuts of red and white meats, such as rib eye steak, sausage, ham, and osman. ?High-fat dairy items, such as whole milk, butter, and cream cheese. Lifestyle Eat small, frequent meals instead of large meals. Avoid drinking large amounts of liquid with your meals. Avoid eating meals during the 2 3 hours before bedtime. Avoid lying down right after you eat. Do not exercise right after you eat. Do not use any products that contain nicotine or tobacco. These products include cigarettes, chewing tobacco, and vaping devices, such as e-cigarettes. If you need help quitting, ask your health careprovider. General instructions Pay attention to any changes in your symptoms. Let your health care provider know about them. Wear loose-fitting clothing. Do not wear anything tight around your waist that causes pressure on your abdomen. Raise (elevate) the head of your bed about 6 inches (15 cm). You may need to use a wedge to do this. Try relaxation strategies such as yoga, deep breathing, or meditation to manage stress. If you needhelp reducing stress, ask your health care provider. If you are overweight, reduce your weight to an amount that is healthy for you. Ask your health care provider for guidance about a safe weight loss goal. Keep all follow-up visits. This is important. Contact a health care provider if: You have new symptoms. You have unexplained weight loss. You have difficulty swallowing, or it hurts to swallow. You have wheezing or a cough that does not go away. Your symptoms do not improve with treatment. You have frequent heartburn for more than two weeks. Get help right away if: You have sudden severe pain in your arms, neck, jaw, teeth, or back. You suddenly feel sweaty, dizzy, or light-headed. You have chest pain or shortness of breath. You vomit and the vomit is green, yellow, or black, or it looks like blood or coffee grounds. Your stool is red, bloody, or black. You have a fever. You cannot swallow, drink, or eat. These symptoms may represent a serious problem that is an emergency. Do not wait to see if the symptoms will go away. Get medical help right away. Call your local emergency services (911 in the [place] Do not drive yourself to the hospital. Summary Esophagitis is inflammation of the esophagus. Most causes of esophagitis are not serious. Follow your health care provider's instructions about eating and drinking. Contact a health care provider if you have new symptoms, have weight loss, or coughing that does not stop. Get help right away if you have severe pain in the arms, neck, jaw, teeth, or back, or if you have chest pain, shortness of breath, or fever. This information is not intended to replace advice given to you by your health care provider. Make sure you discuss any questions you have with your health care provider. Document Revised: 08/30/2020 Document Reviewed: 08/30/2020 [employer] Patient Education 2023 [email or web address]. 06/21/2024 15:05:28 Cannabinoid Hyperemesis Syndrome Cannabinoid Hyperemesis Syndrome Cannabinoid hyperemesis syndrome (CHS) is a condition that causes repeated nausea, vomiting, and abdominal pain after long-term use of marijuana (cannabis). People with CHS typically use marijuana 3 5 times a day for many years before they have symptoms, although it is possible to develop CHS with far less daily use. Symptoms of CHS may be mild at first but can get worse and more frequent. In some cases, CHS may cause severe daily vomiting, which can lead to weight loss and dehydration. What are the causes? The exact cause of CHS is not known. Long-term use of marijuana may overstimulate certain proteins in the brain and digestive tract that react with chemicals in marijuana (cannabinoid receptors). This overstimulation may cause CHS. What are the signs or symptoms? Symptoms of CHS are often mild during the first few episodes, but they can get worse over time. Symptoms may include: Frequent nausea, especially early in the morning. Vomiting. This can become severe. Abdominal pain. Feeling very tired (lethargic). Headaches. CHS may go away and come back many times (recur). People may not have symptoms or may otherwise be healthy in between CHS episodes. Taking hot showers can relieve the symptoms of CHS, so feeling the need to take several hot showers throughout the day can be a sign of this condition. How is this diagnosed? CHS may be diagnosed based on: Your symptoms and medical history, including any drug use. A physical exam. You may have tests done to rule out other problems that could cause your symptoms. These tests may include: Blood tests. Urine tests. Imaging tests, such as an X-ray or a CT scan. How is this treated? Treatment for this condition involves stopping marijuana use. Treatment may include: A drug rehab program, if you have trouble stopping marijuana use. Medicines for nausea. These may be given at the hospital through an IV inserted into one of your veins, or they may be medicines that you take by mouth (orally). Certain creams that contain a substance called capsaicin. These may improve symptoms when applied to the abdomen. Hot showers to help relieve symptoms. In severe cases, you may need treatment at a hospital. You may be given IV fluids to prevent or treat dehydration as well as medicines to treat nausea, vomiting, and pain. Follow these instructions at home: During an episode of CHS Stay in bed and rest in a dark, quiet room. Take anti-nausea medicine as told by your health care provider. Try taking hot showers to relieve your symptoms. After an episode of CHS Drink small amounts of clear fluids. Slowly add more if you can keep the fluids down without vomiting. Once you are able to eat without vomiting, eat soft foods in small amounts every 3 4 hours. General instructions Do not use any products that contain marijuana.If you need help quitting, ask your health care provider for resources and treatment options. Drink enough fluid to keep your urine pale yellow. Avoid drinking fluids that have a lot of sugar or caffeine, such as coffee and soda. Take and apply [id number] and prescription medicines only as told by your health care provider. Ask your health care provider before starting any new medicines or treatments. Keep all follow-up visits. This includes any recommended programs for substance use disorders. Contact a health care provider if: Your symptoms get worse. You cannot drink fluids without vomiting or severe pain. You have pain and trouble swallowing after an episode. Get help right away if: You cannot stop vomiting. You have blood in your vomit or your vomit looks like coffee grounds. You have severe abdominal pain. You have stools that are bloody or black, or stools that look like tar. You have symptoms of dehydration, such as: ?Sunken eyes. ?Inability to make tears. ?Cracked lips or dry mouth. ?Decreased urine production. ?Weakness. ?Sleepiness. ?Dizziness, light-headedness, or fainting. These symptoms may be an emergency. Get help right away. Call 911. Do not wait to see if the symptoms will go away. Do not drive yourself to the hospital. Summary Cannabinoid hyperemesis syndrome (CHS) is a condition that causes repeated nausea, vomiting, and abdominal pain after long-term use of marijuana. Treatment for this condition involves stopping marijuana use. Hot showers and capsaicin creams may also help relieve symptoms. Your health care provider may prescribe medicines to help with nausea. Ask your health care provider before starting any medicines or other treatments. This information is not intended to replace advice given to you by your health care provider. Make sure you discuss any questions you have with your health care provider. Document Revised: 06/19/2022 Document Reviewed: 06/19/2022 [employer] Patient Education 2023 [email or web address] / [employer]. Follow Up Care 06/19/2024 10:48:26 With:Uriel MEADE Address: [address] [place] [address]- Business (1) When:3 to 5 days Comments:Call for followup appointment With:Carolyne Collazo Address: [address] [place] [address]- Business (1) When:7 to 10 days Comments:Call for followup appointment [facility] [phone] Elly Understands Medication Education Yes Joel Medication [facility] NoteProgress Note-Physician Assessment/Plan Patient is a 28-year-old female (on third in first trimester. Reports 1 live and 1 previous miscarriage) who was admitted with intractable nausea and vomiting likely secondary toesophagitis/gastritis with associated epigastric and esophageal pain. Admitted 06/19/24 GEOPHYSICS SCIENTIST consulted for assistance in management 1. Cannabis hyperemesis syndrome concurrent with and due to cannabis abuse (F12.188: Cannabis abusewith other cannabis-induced disorder) Smokes marijuana daily. Counseled on cessation and that cannabis hyperemesis syndrome can remain even 3 months after cessation. Patient aware of risks and voiced her understanding. OB has also spokenwith the patient about this Also hyperemesis gravidarum per OB. Scheduled Zofran, Reglan, IV fluids. Encouraging oral intake as tolerated Ordered: Basic Metabolic Panel [facility] w/ [facility] Moderate 35 Minutes 85035 2. Esophagitis (K20.90: Esophagitis, unspecified without bleeding) Famotidine, Protonix IV twice daily, Carafate 4 times daily ACHS. As needed Dilaudid Ordered: Basic Metabolic Panel CBC w/ Auto Diff eGFR Lipase Level [facility] Care/Day Moderate 35 Minutes 65541 3. Intractable vomiting (R11.10: Vomiting, unspecified) See above management. Ordered: [facility] Care/Day Moderate 35 Minutes 32447 4. First trimester (Z34.91: Encounter for supervision of normal , unspecified, first trimester) Defer management to OB. Underwent transvaginal ultrasound and OB following labs. 5. On deep vein thrombosis (DVT) prophylaxis (Z79.899: Other shelter (current) drug therapy) SCDs bilateral lower extremity, patient very mobile around the room because of discomfort. Orders: Al hydroxide/Mg hydroxide/simethicone, 30 mL, Susp-Oral, Oral, Once, Stop date 06/21/24 11:59:00 EDT, STAT, Start date 06/21/24 11:59:00 EDT atropine/hyoscyamine/PB/scopolamine, 10 mL, Elixir, Oral, Once, Stop date 06/21/24 11:59:00 EDT, STAT, Start date 06/21/24 11:59:00 EDT HYDROmorphone, 0.5 mg = 0.5 mL, Injection, IV Push, q4hr PRN Pain, Routine, Start date 06/21/24 11:01:00 EDT, 06/21/24 11:01:00 EDT HYDROmorphone, 1 mg = 1 mL, Injection, IV Push, Once, Stop date 06/21/24 11:01:00 EDT, STAT, Start date 06/21/24 11:01:00 EDT, 06/21/24 11:01:00 EDT lidocaine topical, 200 mg, 10 mL, Soln-Oral, Oral, Once, Stop date 06/21/24 11:59:00 EDT, STAT, Start date 06/21/24 11:59:00 EDT metoclopramide, 10 mg = 2 mL, Injection, IV Push, Once, Stop date 06/21/24 9:00:00 EDT, Routine, Start date 06/21/24 9:00:00 EDT, 06/21/24 8:11:00 EDT metoclopramide, 10 mg = 2 mL, Injection, IV Push, QIDACHS, Routine, Start date 06/21/24 11:30:00 EDT, 06/21/24 11:01:00 EDT ondansetron, 4 mg = 2 mL, Injection, IV Push, q6hr, Routine, Start date 06/21/24 12:00:00 EDT, 06/21/24 11:03:00 EDT pantoprazole, 40 mg = 10 mL, Injection, IV Push, BID, STAT, Start date 06/21/24 11:01:00 EDT, 06/21/24 11:01:00 EDT Add on Test Subjective Patient still having intractable nausea and vomiting helped significantly by hot showers. Initiating more aggressive medical management with assistance of GEOPHYSICS SCIENTIST. Had extensive discussion and saw patient at bedside this morning together. Scheduling Reglan, Carafate, Zofran, famotidine, Protonix. OB recommended one-time trial of GI cocktail. Stated benefits outweighed risks. Will try to avoid further GI cocktails and hopeful that more aggressive IV management will be helpful. Added Dilaudid as well which seems to be helping patient. Patient stating that she wants to go smoke marijuana and states that this is typically what helps with her most. She stated that her pain was so bad that she wasthinking about having an . I have been into her room several times today and she was significantly improved after addition of scheduled IV medications and Dilaudid. She still not tolerating any oral intake or fluids. Maintaining IV fluids currently. Will discharge and have a discharge plan with OB once she is able to tolerate some food and keep fluids down. Objective Vitals & Measurements T: 37 ???C(Oral) TMIN: 36.9 ???C(Axillary) TMAX: 37.3 ???C(Axillary) HR: 96(Monitored) RR: 16 BP: 95/51 SpO2: 98% WT: 50.7 kg Intake & Output This visit (24 hour periods starting at 07:00 EDT) 06/21/24 * 06/20/24 06/19/24 Total Summary Intake mL 82 2,827.83 1,192 Output mL -- -- -- Fluid Balance 82 2,827.83 1,192 Intake (16) Al hydroxide/Mg hydroxide/simethicone mL 30 -- -- Lactated Ringers Injection mL -- 1,015.09 -- Lactated Ringers Injection 1,000 mL mL -- 1,143.24 -- Oral Intake mL -- 620 -- Sodium Chloride 0.9% mL -- -- 1,000 Sodium Chloride 0.9%, promethazine mL -- -- 152 atropine/hyoscyamine/PB/scopolamine mL 10 -- -- diphenhydrAMINE mL -- 0.5 -- famotidine mL 2 4 4 hydromorphone mL 1 -- -- lidocaine to (more content not included)...[facility]:Result Comment: Electronically Signed By: Josh Gilbert III, DO\.br\Date and Time Signed: 06/21/24 15:01 [id number] Evaluation + Plan note Extracted from:Title:APSO NoteAuthor:Josh Gilbert III, DODate:06/21/24 Patient is a 28-year-old fem oliverio (on third in first trimester. Reports 1 live and 1 previous miscarriage) who was admitted with intractable nausea and vomiting likely secondary to esophagitis/gastritis with associated epigastric and esophageal pain. Admitted 06/19/24 GEOPHYSICS SCIENTIST consulted for assistance in management 1. Cannabis hyperemesis syndrome concurrent with and due to cannabis abuse (F12.188: Cannabis abusewith other cannabis-induced disorder) Smokes marijuana daily. Counseled on cessation and that cannabis hyperemesis syndrome can remain even 3 months after cessation. Patient aware of risks and voiced her understanding. OB has also spokenwith the patient about this Also hyperemesis gravidarum per OB. Scheduled Zofran, Reglan, IV fluids. Encouraging oral intake as tolerated Ordered: Basic Metabolic Panel CBC w/ Auto Diff [facility] Care/Day Moderate 35 Minutes 92668 2. Esophagitis (K20.90: Esophagitis, unspecified without bleeding) Famotidine, Protonix IV twice daily, Carafate 4 times daily ACHS. As needed Dilaudid Ordered: Basic Metabolic Panel CBC w/ Auto Diff eGFR Lipase Level [facility] Care/Day Moderate 35 Minutes 02033 3. Intractable vomiting (R11.10: Vomiting, unspecified) See above management. Ordered: [facility] Care/Day Moderate 35 Minutes 94864 4. First trimester (Z34.91: Encounter for supervision of normal , unspecified, first trimester) Defer management to OB. Underwent transvaginal ultrasound and OB following labs. 5. 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 Orders: Al hydroxide/Mg hydroxide/simethicone, 30 mL, Susp-Oral, Oral, Once, Stop date 06/21/24 11:59:00 EDT, STAT, Start date 06/21/24 11:59:00 EDT atropine/hyoscyamine/PB/scopolamine, 10 mL, Elixir, Oral, Once, Stop date 06/21/24 11:59:00 EDT, STAT, Start date 06/21/24 11:59:00 EDT HYDROmorphone, 0.5 mg = 0.5 mL, Injection, IV Push, q4hr PRN Pain, Routine, Start date 06/21/24 11:01:00 EDT, 06/21/24 11:01:00 EDT HYDROmorphone, 1 mg = 1 mL, Injection, IV Push, Once, Stop date 06/21/24 11:01:00 EDT, STAT, Start date 06/21/24 11:01:00 EDT, 06/21/24 11:01:00 EDT lidocaine topical, 200 mg, 10 mL, Soln-Oral, Oral, Once, Stop date 06/21/24 11:59:00 EDT, STAT, Start date 06/21/24 11:59:00 EDT metoclopramide, 10 mg = 2 mL, Injection, IV Push, Once, Stop date 06/21/24 9:00:00 EDT, Routine, Start date 06/21/24 9:00:00 EDT, 06/21/24 8:11:00 EDT metoclopramide, 10 mg = 2 mL, Injection, IV Push, QIDACHS, Routine, Start date 06/21/24 11:30:00 EDT, 06/21/24 11:01:00 EDT ondansetron, 4 mg = 2 mL, Injection, IV Push, q6hr, Routine, Start date 06/21/24 12:00:00 EDT, 06/21/24 11:03:00 EDT pantoprazole, 40 mg = 10 mL, Injection, IV Push, BID, STAT, Start date 06/21/24 11:01:00 EDT, 06/21/24 11:01:00 EDT Add on Test Extracted from:Title:General Complaint *Author:Uriel MEADE DO RDate:06/21/24 Impression and Plan hyperemesis gravidarium exacerabated by suspected cannabis hyperemesis syndrome- zofran odt 4mg q6 hours around the clock, along with reglan 10mg q 30min prior to eating up to 3times per day, [id number], vicodin for pain, will see pt in office early next week, precautions given to patient, elevated lipase and leukocytosis resolved but secondary to hyperemesis, discussed case with dr gilebrt Extracted from:Title:APSO NoteAuthor:Josh Gilbert III, DODate:06/20/24 Patient is a 28-year-old fem oliverio (on third in first trimester. Reports 1 live and 1 previous miscarriage) who was admitted with intractable nausea and vomiting likely secondary to esophagitis/gastritis with associated epigastric and esophageal pain. Admitted 06/19/24 GEOPHYSICS SCIENTIST consulted for assistance in management 1. Esophagitis (K20.90: Esophagitis, unspecified without bleeding) Carafate suspension 4 times daily ACHS, famotidine 20 mg IV twice daily Ordered: Basic Metabolic Panel CBC w/ Auto Diff [facility] Care/Day Moderate 35 Minutes 32432 2. Intractable vomiting (R11.10: Vomiting, unspecified) As needed Zofran. Trialing Reglan IV once. Do not have B6 or Unisom available on our formulary. Appreciate GEOPHYSICS SCIENTIST opinion on this. LR 500 mL bolus this morning and maintain LR at 90 mL/h. Clear liquid advance to regular diet at patient's request. She will trial regular diet as tolerated. Ordered: [facility] Care/Day Moderate 35 Minutes 84498 3. First trimester (Z34.91: Encounter for supervision of normal , unspecified, first trimester) GEOPHYSICS SCIENTIST to manage. Patient reported greenish vaginal discharge. Deferred to GEOPHYSICS SCIENTIST for assessment/management of this. Underwent transvaginal ultrasound this a.m. :Shows early single live intrauterine gestation. Composite ultrasound age 6 weeks, 2 days which corresponds to estimated gestational age by LMP. Subchorionic hemorrhage minimally changed from 06/16/2024 and measuring up to 2.8 cm. History of IVF with embryo transfer on 05/27/2024. 4. On deep vein thrombosis (DVT) prophylaxis (Z79.899: Other shelter (current) drug therapy) SCDs bilateral lower extremities. Early ambulation. Orders: Lactated Ringers Injection, 500 mL, Soln-IV, IV, Once, Stop date 06/20/24 11:32:00 EDT, STAT, Startdate 06/20/24 11:32:00 EDT, mL/hr, Infuse over 61, minute(s) Lactated Ringers Injection 1,000 mL, 1,000 mL, IV, 90 mL/hr, Routine, Start date 06/20/24 11:38:00 EDT, 11.1 hour(s), Total volume (mL): 1,000, 48.9 kg, 1.51, m2 metoclopramide, 5 mg = 1 mL, Injection, IV Push, Once, Stop date 06/20/24 11:31:00 EDT, STAT, Startdate 06/20/24 11:31:00 EDT, 06/20/24 11:31:00 EDT Communication Order Physician to Nursing Regular Diet Extracted from:Title:OB Triage *Author:Uriel MEADE DO RDate:06/20/24 Impression and Plan epigastric pain, iup at 6wks-obtain ultrasound, cont iv antiemetics, cont treatment for esophagitis, keep scheduled appt with for next sunday, appreciate consult Extracted from:Title:Admission H & PAuthor:Samantha QUINN DO RDate:06/19/24 1. Esophagitis (K20.90: Esop hagitis, unspecified without bleeding) Will start patient on Carafate 4 times daily and Pepcid 20 mg IV twice daily. I did confirm that these are safe in . Will also put patient on clear liquid diet. I did baby counselor patient that I do not think is safe for patient to have solid foods at this time. Patient does state that she gets very hungry she does have emesis historically. Will also order Tums as needed. 2. Intractable vomiting (R11.10: Vomiting, unspecified) Zofran as needed. 3. First trimester (Z34.91: Encounter for supervision of normal , unspecified, first trimester) Will consult OB for assistance with management. Patient is to bring in her IVF medications to be administered here in the hospital. 4. On deep vein thrombosis (DVT) prophylaxis (Z79.899: Other shelter (current) drug therapy) SCD, early ambulation Orders: acetaminophen, 650 mg = 2 tab(s), Tab, Oral, q6hr PRN Pain, Routine, Start date 06/19/24 21:17:00 EDT, 06/19/24 21:17:00 EDT calcium carbonate, 1,000 mg = 2 tab(s), Tab-Chew, Oral, q3hr PRN Control of stomach acid for 30 day(s), Stop date 07/19/24 21:30:00 EDT, Routine, Start date 06/19/24 21:31:00 EDT famotidine, 20 mg = 2 mL, Soln-IV, IV Push, BID, NOW, Start date 06/19/24 21:31:00 EDT, 06/19/24 21:31:00 EDT ondansetron, 4 mg = 2 mL, Injection, IV Push, q6hr PRN Nausea, Routine, Start date 06/19/24 21:17:00 EDT, 06/19/24 21:17:00 EDT sucralfate, 1 gram = 10 mL, Susp-Oral, Oral, QIDACHS, NOW, Start date 06/19/24 21:16:00 EDT, 06/19/24 21:16:00 EDT Activity As Tolerated Basic Metabolic Panel CBC w/ Indices Clear Liquid Diet Consult to Valuation Consultant Magnesium Level Notify Provider Vital Signs Notify Provider Vital Signs US Transvaginal Vital Signs Weight Anticipated stay less than 2 midnights. Patient will be observation status. Extracted from:Title:ED NoteAuthor:Nithin GOMEZ Student, Rashid:06/19/24 1. Esophagitis (K20.90: Esop hagitis, unspecified without bleeding) 2. Intractable vomiting (R11.10: Vomiting, unspecified) 3. First trimester (Z34.91: Encounter for supervision of normal , unspecified, first trimester) Orders: dicyclomine, 20 mg = 2 mL, Injection, IntraMuscular, Once, Stop date 06/19/24 12:49:00 EDT, STAT, Start date 06/19/24 12:49:00 EDT, 06/19/24 12:49:00 EDT famotidine, 20 mg = 2 mL, Soln-IV, IV Push, Once, Stop date 06/19/24 11:20:00 EDT, STAT, Start date06/19/24 11:20:00 EDT, 06/19/24 11:20:00 EDT morphine, 4 mg = 1 mL, Injection, IV Push, Once, Stop date 06/19/24 13:51:00 EDT, STAT, Start date 06/19/24 13:51:00 EDT, 06/19/24 13:51:00 EDT ondansetron, 4 mg = 2 mL, Injection, IV Push, Once, Stop date 06/19/24 11:20:00 EDT, STAT, Start date 06/19/24 11:20:00 EDT, 06/19/24 11:20:00 EDT promethazine 12.5 mg + Sodium Chloride 0.9% intravenous solution 50 mL, Injection, IV Piggyback, Once, Stop date 06/19/24 11:20:00 EDT, STAT, Start date 06/19/24 11:20:00 EDT, 151.5 mL/hr, Infuse over 20 minute(s) promethazine 12.5 mg + Sodium Chloride 0.9% intravenous solution 50 mL, Injection, IV Piggyback, Once, Stop date 06/19/24 13:51:00 EDT, STAT, Start date 06/19/24 13:51:00 EDT, 151.5 mL/hr, Infuse over 20 minute(s) Sodium Chloride 0.9% intravenous solution, 1,000 mL, Soln-IV, IV, Once, Stop date 06/19/24 11:20:00EDT, STAT, Start date 06/19/24 11:20:00 EDT, Infuse over 61, minute(s) Amylase Level Basic Metabolic Panel CBC w/ Auto Diff ECG 12 Lead Adult eGFR Extra Blue Tube Extra SST Tube Hepatic Function Panel Lipase Level Troponin 0 Hr. Troponin 3 Hr. UA with Cult Rflx US Gallbladder XR Chest Single View Addendum by Boo Pina M.D. on June 20, 2024 02:14:12 EDT The care of the patient was transitioned to tn upon shift change for consult GEOPHYSICS SCIENTIST and admission to the hospital. The patient has presented with nausea and vomiting and pain. She has history of esophagitis. The patient attempted p.o. intake and she was not able to tolerate. She vomited again. The case was discussed with Dr. Meade who recommends that patient still be admitted to medicine with himin consult. He agreed patient can be admitted to his services. I discussed the case with the night hospitalist and he admitted patient to his services with consult Dr. Meade. [facility] 04-19-2025 NoteProgress Note-Physician Patient: INDU ST Age: 28 years Sex: Female : 1995 Associated Diagnoses: None Author: Uriel MEADE DO History of Present Illness hyperemesis gravidarium secondary to suspected cannabis hyperemesis syndrome, pt is currently 6wks Review of Systems Constitutional: Negative. Eye Cardiovascular: Negative. Gastrointestinal: Nausea, Vomiting. Genitourinary: Negative. All other systems are negative Health Status Current medications: (Selected) Problem list: All Problems Abnormal CT of the abdomen / SNOMED CT 9239304276 / Confirmed Abnormal uterine bleeding. / SNOMED CT 0973180817 / Confirmed Amenorrhea / SNOMED CT 73595210 / Confirmed Anemia / SNOMED CT 701837033 / Confirmed Anxiety / SNOMED CT 51756750 / Confirmed Asthma / SNOMED CT 293144888 / Confirmed Asthma / SNOMED CT 861105951 / Confirmed Attention deficit hyperactivity disorder / SNOMED CT 9414787027 / Confirmed Benign neoplasm of pituitary gland / SNOMED CT 673086978 / Confirmed Bilateral arthritis of sacroiliac joint / SNOMED CT 5071354805 / Confirmed Bipolar disorder / SNOMED CT 80422300 / Confirmed Chronic rhinitis / SNOMED CT 637340768 / Confirmed Chronic vaginitis / SNOMED CT [id number] / Confirmed Depressive disorder / SNOMED CT 29456068 / Confirmed Disorder of pituitary gland / SNOMED CT 4817221236 / Confirmed Endometriosis (clinical) / SNOMED CT 839218538 / Confirmed Esophagitis / SNOMED CT 98126666 / Confirmed Fatigue / SNOMED CT 642565494 / Confirmed Gastritis / SNOMED CT 5587872 / Confirmed Heartburn / SNOMED CT 36043221 / Confirmed History of laparoscopy / SNOMED CT 9047094212 / Confirmed Malignant tumor of cervix / SNOMED CT 808307086 / Confirmed Miscarriage / SNOMED CT 55542569 / Confirmed Nausea and vomiting / SNOMED CT 20179186 / Confirmed Pain in pelvis / SNOMED CT 283570965 / Confirmed Prolactin level above reference range / SNOMED CT 2008533289 / Confirmed Prolactinoma / SNOMED CT 300141583 / Confirmed Sciatica / SNOMED CT 10734003 / Confirmed Scoliosis / SNOMED CT 902033155 / Confirmed Seasonal allergic rhinitis / SNOMED CT 210143655 / Confirmed Stress-related physiological response affecting medical condition / SNOMED CT 07484801 / Confirmed 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 Resolved on 12/13/2012 at 17 years. Social History Social & Psychosocial Habits Alcohol 06/19/2024 Risk Assessment: Denies Alcohol Use Substance Abuse 06/19/2024 Risk Assessment: Denies Substance Abuse 06/19/2024 Use: Current Type: Marijuana Tobacco 06/19/2024 Risk Assessment: Denies Tobacco Use 06/19/2024 Tobacco Use: Never (less than 100 in l Smokeless tobacco use: Never 06/19/2024 Tobacco Use: Never (less than 100 in l Smokeless tobacco use: Never . Physical Examination Vital Signs Respiratory: Lungs are clear to auscultation. Cardiovascular: Normal rate. Gastrointestinal: Soft, Non-tender, Non-distended, Normal bowel sounds. Genitourinary: No costovertebral angle tenderness. Impression and Plan hyperemesis gravidarium exacerabated by suspected cannabis hyperemesis syndrome- zofran odt 4mg q6 hours around the clock, along with reglan 10mg q 30min prior to eating up to 3times per day, [id number], vicodin for pain, will see pt in office early next week, precautions given to patient, elevated lipase and leukocytosis resolved but secondary to hyperemesis, discussed case with dr [facility]Comment on above:Result Comment: Electronically Signed By: Uriel MEADE DO.br\Date and Time Signed: 06/21/24 10:02 [id number] NoteProgress Note-Physician Assessment/Plan Patient is a 28-year-old female (on third in first trimester. Reports 1 live and 1 previous miscarriage) who was admitted with intractable nausea and vomiting likely secondary toesophagitis/gastritis with associated epigastric and esophageal pain. Admitted 06/19/24 GEOPHYSICS SCIENTIST consulted for assistance in management 1. Esophagitis (K20.90: Esophagitis, unspecified without bleeding) Carafate suspension 4 times daily ACHS, famotidine 20 mg IV twice daily Ordered: Basic Metabolic Panel CBC w/ [facility] Moderate 35 Minutes 31807 2. Intractable vomiting (R11.10: Vomiting, unspecified) As needed Zofran. Trialing Reglan IV once. Do not have B6 or Unisom available on our formulary. Appreciate GEOPHYSICS SCIENTIST opinion on this. LR 500 mL bolus this morning and maintain LR at 90 mL/h. Clear liquid advance to regular diet at patient's request. She will trial regular diet as tolerated. Ordered: Sbsq Hospital Care/Day Moderate 35 Minutes 78571 3. First trimester (Z34.91: Encounter for supervision of normal , unspecified, first trimester) GEOPHYSICS SCIENTIST to manage. Patient reported greenish vaginal discharge. Deferred to GEOPHYSICS SCIENTIST for assessment/management of this. Underwent transvaginal ultrasound this a.m. :Shows early single live intrauterine gestation. Composite ultrasound age 6 weeks, 2 days which corresponds to estimated gestational age by LMP. Subchorionic hemorrhage minimally changed from 06/16/2024 and measuring up to 2.8 cm. History of IVF with embryo transfer on 05/27/2024. 4. 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 Early ambulation. Orders: Lactated Ringers Injection, 500 mL, Soln-IV, IV, Once, Stop date 06/20/24 11:32:00 EDT, STAT, Startdate 06/20/24 11:32:00 EDT, mL/hr, Infuse over 61, minute(s) Lactated Ringers Injection 1,000 mL, 1,000 mL, IV, 90 mL/hr, Routine, Start date 06/20/24 11:38:00 EDT, 11.1 hour(s), Total volume (mL): 1,000, 48.9 kg, 1.51, m2 metoclopramide, 5 mg = 1 mL, Injection, IV Push, Once, Stop date 06/20/24 11:31:00 EDT, STAT, Startdate 06/20/24 11:31:00 EDT, 06/20/24 11:31:00 EDT Communication Order Physician to Nursing Regular Diet Subjective Seen at bedside with her significant other. Vomiting this morning on my exam. Endorses significant epigastric and esophageal pain that she rated reports is somewhat better with Carafate. Still with nausea despite Zofran, Carafate, famotidine. Trialing Reglan. Giving IV fluids as she feels dehydrated. She states that sometimes eating makes her feel better when she has symptoms like this and advancing diet as tolerated. Patient would also like to shower and placed order for okay to shower. Will monitor closely. Underwent 6-week transvaginal ultrasound today prior to my exam. Review of Systems Positive nausea, vomiting, epigastric pain. Esophageal/substernal chest discomfort. Denies any fever, chills, overt chest pain, shortness of breath, nausea, vomiting, diarrhea. Objective Vitals & Measurements T: 36.6 ???C(Axillary) TMIN: 36.6 ???C(Axillary) TMAX: 37.5 ???C(Oral) HR: 77(Monitored) RR: 20 BP:112/71 SpO2: 100% HT: 167.64 cm WT: 50.4 kg Intake & Output This visit (24 hour periods starting at 07:00 EDT) 06/20/24 * 06/19/24 06/18/24 Total Summary Intake mL 14 1,192 -- Output mL -- -- -- Fluid Balance 14 1,192 -- Intake (6) Sodium Chloride 0.9% mL -- 1,000 -- Sodium Chloride 0.9%, promethazine mL -- 152 -- famotidine mL 2 4 -- morphine mL -- 2 -- ondansetron mL 2 4 -- sucralfate mL 10 30 -- Total 14 1,192 -- Output (0) Counts (0) * This column has not completed the indicated time period. Physical Exam General: alert, moderate distress, active vomiting during my exam ENMT: Normocephalic atraumatic, oral mucosa moist Cardiovascular: regular rate and rhythm, no murmur, normal peripheral perfusion Respiratory: Lungs CTA, respirations non labored GI: Epigastric tenderness to palpation. Normal bowel sounds. No acute abdomen. No rebound tenderness. : Not examined. Did report some greenish vaginal discharge this morning after her ultrasound. Deferred to OB Extremities: no deformity, no trauma, no edema Neurological: oriented x 4, LOC appropriate for age, CN II-XII intact, motor strength equal & normal bilaterally, sensation equal & normal bilaterally, speech normal Lab Results WBC: 17.7 E9/L High (06/20/24 06:53:00) RBC: 4.2 E12/L Low (06/20/24 06:53:00) HGB: 12.5 gm/dL (06/20/24 06:53:00) Hct: 36.5 % (06/20/24 06:53:00) MCV: 86.8 fL (06/20/24 06:53:00) MCH: 29.6 pg (06/20/24 06:53:00) MCHC: 34.1 gm/dL (06/20/24 06:53:00) RDW: 14.6 % High (06/20/24 06:53:00) Platelet: 259 E9/L (06/20/24 06:53:00) MPV: 7.8 fL (06/20/24 06:53:00) RBC Morph: NORMAL (06/20/24 06:53:00) Gluc (more content not included)...[facility] CenterComment on above: Result Comment: Electronically Signed By: Josh Gilbert III, DO\Date and Time Signed: 06/20/24 11:57 [id number] NoteProgress Note-Physician Patient: INDU ST Age: 28 years Sex: Female : 1995 Associated Diagnoses: None Author: Uriel MEADE DO Chief Complaint epigastric pain, ho ivf with current iup at 6wks Review of Systems Constitutional: Negative. Respiratory: Negative. Cardiovascular: Negative. Gastrointestinal: Nausea, Vomiting. Obstetric: iup at 6wks. All other systems are negative Physical Examination Reviewed Results: Vital Signs(Date Range: 06/19/2024 0:00 EDT - 06/20/2024 7:12 EDT) Gastrointestinal: Soft, Non-tender, Non-distended, nausea and vomiting improved, states epigastric pain improved. Impression and Plan epigastric pain, iup at 6wks-obtain ultrasound, cont iv antiemetics, cont treatment for esophagitis, keep scheduled appt with for next sunday, appreciate consultMer[facility] Health St. Rita'S Medical CenterComment on above:Result Comment: Electronically Signed By: Uriel MEADE DO\Tyronebr\Date and Time Signed: 06/20/24 07:14 [id number] NoteHistory and Physical Chief Complaint pt rpeorts being six weeks prgenant, has been seen for bleeding already. denies any current bleeding. woke up with n/v and abd pain with epigastric pain/bruning. History of Present Illness Patient is a 28-year-old female with past medical history as noted below who comes in with above-stated chief complaint. Patient is currently undergoing IVF treatments and is 6 weeks . This is her third . Patient has a history of esophagitis. Patient states that she woke up this morning with severe nausea and vomiting. Patient also began to have severe midsternal chest pain therefore he came to the ED for evaluation. See ED documentation for medication administered. Patient states that she did initially respond to the Carafate but then had recurrence of her nausea, vomiting and chest pain after eating a cheeseburger. Due to the persistence of nausea and vomiting patient will be admitted for observation. Obstetrics was consulted from the emergency department and has requested to be on consultation. Patient does complain of chills and feeling very shaky at times today. Patient denies any fevers, shortness of breath, diarrhea, dysuria. Review of Systems 14 Systems reviewed and negative except as noted in HPI. Scoring [place] Fall Risk Score: 35 (06/19/24) Physical Exam Vitals & Measurements T: 36.8 ???C(Oral) HR: 91(Monitored) RR: 14 BP: 124/80 SpO2: 100% HT: 167 cm WT: 48.9 kg General: alert, no acute distress Skin: warm, dry Head: no trauma, normocephalic Neck: Trachea midline, no adenopathy, no tenderness Eye: normal conjunctiva, sclera clear ENMT: oral mucosa moist, no pharyngeal erythema or exudate. hearing grossly intact Cardiovascular: regular rate and rhythm, no murmur/gallop/rub Respiratory: Lungs CTA, respirations non labored , no w/r/r Gastrointestinal: Positive bowel sound, soft, non distended, no tenderness, no guarding. Extremities: no deformity, no trauma Osteopathic: Deferred due to being noncontributory to current case. Neurological: oriented x 4, LOC appropriate for age, CN II-XII intact, motor strength equal & normal bilaterally, sensation equal & normal bilaterally, speech normal Psychiatric: cooperative, affect appropriate for age, normal judgement, normal psychiatric thoughts. Lab Results WBC: 17.5 E9/L High (06/19/24 11:49:00) RBC: 4.6 E12/L (06/19/24 11:49:00) HGB: 13.3 gm/dL (06/19/24 11:49:00) Hct: 40.1 % (06/19/24 11:49:00) MCV: 87.5 fL (06/19/24 11:49:00) MCH: 29.1 pg (06/19/24 11:49:00) MCHC: 33.2 gm/dL (06/19/24 11:49:00) RDW: 14.3 % High (06/19/24 11:49:00) Platelet: 298 E9/L (06/19/24 11:49:00) MPV: 7.6 fL (06/19/24 11:49:00) Neutro Auto: 87.7 % High (06/19/24 11:49:00) Lymph Auto: 8.4 % Low (06/19/24 11:49:00) [place] Auto: 3.6 % Low (06/19/24 11:49:00) Eos Auto: 0.1 % (06/19/24 11:49:00) Basophil Auto: 0.2 % (06/19/24 11:49:00) Neutro Absolute: 15.4 E9/L High (06/19/24 11:49:00) Lymph Absolute: 1.5 E9/L (06/19/24 11:49:00) [place] Absolute: 0.6 E9/L (06/19/24 11:49:00) Eos Absolute: 0 E9/L (06/19/24 11:49:00) Basophil Absolute: 0 E9/L (06/19/24 11:49:00) Glucose Lvl: 119 mg/dL (06/19/24 11:49:00) BUN: 18 mg/dL (06/19/24 11:49:00) Creatinine: 0.7 mg/dL (06/19/24 11:49:00) eGFR: 119 mL/min/1.73 m2 (06/19/24 11:49:00) BUN/Creat Ratio: 26 High (06/19/24 11:49:00) Sodium Lvl: 137 mmol/L (06/19/24 11:49:00) Potassium Lvl: 3.7 mmol/L (06/19/24 11:49:00) Chloride: 107 mmol/L (06/19/24 11:49:00) CO2: 21 mmol/L (06/19/24 11:49:00) AGAP: 13 mEq/L (06/19/24 11:49:00) Calcium Lvl: 9 mg/dL (06/19/24 11:49:00) Alk Phos: 40 Int._Unit/L (06/19/24 11:49:00) ALT: 14 Int._Unit/L (06/19/24 11:49:00) AST: 13 Int._Unit/L (06/19/24 11:49:00) Total Protein: 6.5 gm/dL (06/19/24 11:49:00) Albumin Lvl: 3.8 gm/dL (06/19/24 11:49:00) Globulin: 2.7 gm/dL (06/19/24 11:49:00) A/G Ratio: 1.4 (06/19/24 11:49:00) Bili Total: 0.5 mg/dL (06/19/24 11:49:00) Bili Direct: 0.1 mg/dL (06/19/24 11:49:00) Bili Indirect: 0.4 mg/dL (06/19/24 11:49:00) Amylase Lvl: 84 unit/L (06/19/24 11:49:00) Lipase Lvl: 84 unit/L High (06/19/24 11:49:00) Troponin HS: 2.4 pg/mL Low (06/19/24 15:10:00) UA Spec Desc: Clean Catch (06/19/24 12:40:00) UA Color: Yellow (06/19/24 12:40:00) UA Clarity: Clear (06/19/24 12:40:00) UA Spec Grav: 1.025 (06/19/24 12:40:00) UA pH: 6.0 (06/19/24 12:40:00) UA Protein: Trace Abnormal (06/19/24 12:40:00) UA Glucose: Negat (06/19/24 12:40:00) UA Ketones: 2+ Abnormal (06/19/24 12:40:00) UA Bili: Negat (06/19/24 12:40:00) UA Blood: Negat (06/19/24 12:40:00) UA Nitrite: Negat (06/19/24 12:40:00) UA Urobilinogen: Negat (06/19/24 12:40:00) UA Leuk Est: Negat (06/19/24 12:40:00) Assessment/Plan 1. Esophagitis (K20.90: Esophagitis, unspecified without bleeding) Will start patient on Carafate 4 times daily and Pepcid 20 mg IV twice daily. I did confirm that these are safe in . Will also put patient on clear li (more content not included)...[facility] CenterComment on above:Result Comment: Electronically Signed By: Samantha QUINN DO.seble\Date and Time Signed: 06/19/24 21:45 [id number] Evaluation + Plan note Diagnostic Tests Pending * Estradiol Level 06/13/24 [facility] 03-11-2025 Evaluation + Plan note Diagnostic Tests Pending * Estradiol Level 05/13/24 * FSH and LH 05/13/24 [facility] 02-26-2025 Evaluation + Plan note Diagnostic Tests Pending * Estradiol Level 04/30/24 [facility] 02-10-2025 History of Present illness Narrative* Carolyne Collazo MD - 04/14/2024 2:45 PM EST Images from the original note were not included. Indu St is a 28 y.o. female presents with chief complaint of Mental Health Problem (Patient feels in a manic phase.) HPI: History of Present Illness The patient presents for evaluation of bipolar disorder, eating disorder, and borderline personality disorder. She discontinued her bipolar medication in June and stopped Ritalin around October or November. Currently undergoing IVF, which has intensified her emotional responses. Reports social withdrawal, lack of communication, sleep disturbances, waking at 4:00 AM with gastrointestinal discomfort possiblyrelated to anxiety, feelings of emptiness, and detachment from family. History of anger issues, occasionally violent, but improved control. Apprehensive about depression. Seeking -safe medication, willing to wait 2 weeks post-IVF to start treatment. Struggles to eat without smoking weed, history of significant weight loss during due to severe nausea and vomiting. Taking daily injections for IVF, scheduled for transfer on the . Concerned about the impact on her children's well-being. Reports lack of appetite and difficulty eating without marijuana. Identified potential eating disorder, considering professional help. History of poor eating habits, skipping meals during childhood. Concerned about maintaining a healthy diet during IVF. Self-diagnosed borderline personality disorder, experiencing paranoia, panic attacks, isolation, auditory hallucinations, fluctuating self-esteem, and suicidal ideation without action due to grief. Frequent crying episodes, feelings of numbness. Discontinued counseling due to insurance issues, frust rated by counselor's advice. History of manic episodes, including impulsive car purchase this morning, and depression, particularly when isolated or abandoned. Improved control over anger issues. Apprehensive about depression. Seeking -safe medication, willing to wait 2 weeks post-IVF to start treatment. Struggles to eat without smoking weed, history of significant weight lossduring due to severe nausea and vomiting. Taking daily injections for IVF, scheduled for transfer on the . Concerned about the impact on her children's well-being. SOCIAL HISTORY Uses weed for calming down and stimulating appetite. MEDICATIONS Discontinued: Bipolar medication (June), Ritalin () MEDICATIONS: Current Outpatient Medications Medication Instructions ALPRAZolam (Xanax) 0.5 MG tablet 1 tablet Orally Twice a day as needed for anxiety for 30 days ARIPiprazole (ABILIFY) 5 mg, Oral, Daily budesonide-formoterol (Breyna) 80-4.5 MCG/ACT inhaler 2 puffs, Inhalation, Daily, Rinse mouth with water after use to reduce aftertaste and incidence of candidiasis. Do not swallow. cholecalciferol (VITAMIN D-3) 25 mcg, Oral, Daily fish oil concentrate 1 g, Oral, Daily Vit-Fe Fumarate-FA ( Vitamins) 28-0.8 MG tablet 1 tablet, Oral, Daily ALLERGIES: Allergies Allergen Reactions Dust Mite Extract Unknown Review of Systems Constitutional: Positive for appetite change. Negative for activity change and unexpected weight change. HENT: Negative. Respiratory: Negative. Cardiovascular: Negative. Gastrointestinal: See HPI Musculoskeletal: Negative for arthralgias and myalgias. Skin: Negative for rash. Neurological: Negative for dizziness, speech difficulty, weakness and headaches. Endocrine: Negative. Medical, Surgical, Family, and Social History reviewed. OBJECTIVE: Visit Vitals BP 110/62 (BP Location: Right arm, Patient Position: Sitting, BP Cuff Size: Adult) Pulse 78 Temp 98.4 F (Temporal) Ht 5' 6 Wt 111 lb 6.4 oz SpO2 98% BMI 17.98 kg/m OB Status Having periods Smoking Status Never BSA 1.53 m BP Readings from Last 3 Encounters: 04/14/24 110/62 12/03/23 102/68 08/23/23 106/60 Wt Readings from Last 3 Encounters: 04/14/24 111 lb 6.4 oz 12/03/23 109 lb 08/23/23 108 lb Physical Exam Physical Exam Results ASSESSMENT AND PLAN: Assessment & Plan 1. Bipolar disorder. Requires pharmacological intervention. Discussed symptom overlap with personality disorder. Therapybeneficial but not immediate relief. Initiate low dose aripiprazole, gradually increase to stabilize mood. Consult IVF specialist. Prescription sent to [email or web address] follow up, 2 weeks. 2. Eating disorder. Reports lack of appetite, issues with food texture, uses weed to stimulate appetite. Advised further evaluation and treatment, discuss with IVF specialist for -safe plan. 3. Borderline personality disorder. Identifies with symptoms, including emotional instability, fear of abandonment, intense anger. Discussed symptom overlap with bipolar disorder. Advised therapy, discuss with IVF specialist for -safe plan. Assessment/Plan Health Maintenance Due Topic Date Due Influenza Vaccine (1) 11/04/2023 documented in this encounterSac-Osage [id number] History of Present illness Narrative* Akua Streeter, ANN - 03/12/2024 8:00 AM EST Reason for Appointment: Patient ID: Indu St is a 28 y.o. female who presents for No chief complaint on file. Patient presents today via telephone call for a telehealth appointment. Patients Phone #: [phone] (mobile) Current Medications: has a current medication list which includes the following prescription(s): alprazolam, breyna, cholecalciferol, coenzyme q-10, fish oil concentrate, and vitamins. Medical History: Active Ambulatory Problems Diagnosis Date Noted Bipolar 1 disorder ([facility]) 11/13/2022 Anxiety 12/21/2022 Asthma ([facility]) 12/21/2022 Attention deficit hyperactivity disorder (ADHD), combined type ([facility]) 12/21/2022 Proteinuria 08/03/2010 PTSD (post-traumatic stress disorder) ([facility]) 12/21/2022 Bipolar affective disorder, current episode hypomanic ([facility]) 12/21/2022 Well woman exam with routine gynecological exam 03/19/2023 Myalgia 02/18/2024 Resolved Ambulatory Problems Diagnosis Date Noted No Resolved Ambulatory Problems Past Medical History: Diagnosis Date Abnormal uterine bleeding (AUB) ADHD (attention deficit hyperactivity disorder) ([facility]) Amenorrhea Bilateral sacroiliitis ([facility]) Cervical cancer ([facility]) Chronic fatigue Chronic rhinitis Chronic vaginitis Depression [...] 03/2020 lap, D and C - at [facility] DILATION AND CURETTAGE OF UTERUS [...] review questions in regards to fertility. Patient voicedthat she has some concerns in regards to her medical marijuana card and . Informed patientthat CPS is their own entity and office cannot speak on their behalf as to how they would handle ifpatient has a positive UDS in . Patient [...] be able to be informed on what canbe done locally or what needs to be done through specialist. Documented on behalf of Dr. Uriel Meade DO by Akua Streeter LPN Today's telehealth visit consisted of spending 10 minutes talking to patient on the phone. Documented by Akua Streeter LPN on behalf of: Uriel Meade DO documented in this encounterSac-Osage [id number] History of Present illness Narrative* PATRICIA Joyner - 02/18/2024 3:33 PM ESTAssociated Problem(s): Myalgia Dr Collazo put in lab orders and patient will go to [facility] Will call with results * PATRICIA Joyner - 02/15/2024 10:00 AM EST Images from the original note were not [...] Topic Date Due Influenza Vaccine (1) 11/04/2023 * PATRICIA Joyner - 02/15/2024 10:00 AM EST Images from the original note were not included. Indu St is a 28 y.o. female presents with chief complaint of No chief complaint on file. HPI: History of Present Illness Patient here via televisitTelehealth Encounter: Verbal consent was obtained from patient for Telehealth Services. Patient Location ([place]) Patient is concerned about ongoing joint pain [...] lab orders and patient will go to [facility] Will call with results Health Maintenance Due Topic Date Due Influenza Vaccine (1) 11/04/2023 documented in this encounterSac-Osage [id number] Evaluation + Plan note Diagnostic Tests Pending * .JESUS Individual Abs 02/18/24 * Rheumatoid Factor Quantitative 02/18/24 [facility] 11-13-2024 History of Present illness Narrative* Shari Gomez LPN - 01/16/2024 8:10 AM EST Reason for Appointment: Patient ID: Indu St is a 28 y.o. female who presents for Telehealth and Infertility Patient presents today via telephone call for a telehealth appointment. Patients Phone #: [phone] (mobile) Current Medications: has a current medication list which includes the following prescription(s): alprazolam and breyna. Medical History: Active Ambulatory Problems Diagnosis Date Noted Bipolar 1 disorder ([facility]) 11/13/2022 Anxiety 12/21/2022 Asthma ([facility]) 12/21/2022 Attention deficit hyperactivity disorder (ADHD), combined type ([facility]) 12/21/2022 Proteinuria 08/03/2010 PTSD (post-traumatic stress disorder) ([facility]) 12/21/2022 Bipolar affective disorder, current episode hypomanic ([facility]) 12/21/2022 Well woman exam with routine gynecological exam 03/19/2023 Resolved Ambulatory Problems Diagnosis Date Noted No Resolved Ambulatory Problems Past Medical History: Diagnosis Date Abnormal uterine bleeding (AUB) ADHD (attention deficit hyperactivity disorder) ([facility]) Amenorrhea Bilateral sacroiliitis ([facility]) Cervical cancer ([facility]) Chronic fatigue Chronic rhinitis Chronic vaginitis Depression [...] 03/2020 lap, D and C - at [facility] DILATION AND CURETTAGE OF UTERUS [...] pt has appt with IVF clinic in [place]. Pt is having weird symptoms- anal itching, [...] of: Uriel Meade DO documented in this encounterSac-Osage [id number] History of Present illness Narrative* Akua Streeter LPN - 12/03/2023 8:30 AM EDT Reason for Appointment: Patient ID: Indu St [...] Problems Diagnosis Date Noted Bipolar 1 disorder ([facility]) 11/13/2022 Anxiety 12/21/2022 Asthma ([facility]) 12/21/2022 Attention deficit hyperactivity disorder (ADHD), combined type ([facility]) 12/21/2022 Proteinuria 08/03/2010 PTSD (post-traumatic stress disorder) ([facility]) 12/21/2022 Bipolar affective disorder, current episode hypomanic ([facility]) 12/21/2022 Well woman exam with routine gynecological [...] (CMS/HCC) Amenorrhea Bilateral sacroiliitis (CMS/HCC) Cervical cancer (CMS/[facility]) Chronic fatigue Chronic rhinitis Chronic vaginitis Depression with anxiety Depression/Anxiety Endometriosis Gynecological disorder History of medical problems Question of bipolar disorder Infertility counseling Low libido Miscarriage S/P laparoscopy Sciatica, unspecified side Seasonal allergic rhinitis, unspecified trigger Serous otitis media, unspecified chronicity, unspecified laterality URI (upper respiratory infection) 03/01/2019 [facility] - ER Social History [...] 03/2020 lap, D and C - at [facility] DILATION AND CURETTAGE OF UTERUS [...] nursing note reviewed. Exam conducted with a exterminator helper termite present. Vitals: Estimated body mass index is 17.59 kg/m as calculated from the following: Height as of this encounter: 5' 6 . Weight as of this encounter: 109 lb. BP: 102/68 Patient's last menstrual period was 11/16/2023. ASSESSMENT & PLAN Patient presents today for fertility management. Patient voiced she does not want to do IVF or IUI.Informed patient that if tubes are not able to be opened. [facility] Patient is to call office when she starts cycle and nurse will send HSG and HCG to [facility] Radiology. Will hold off on fertility meds for the next cycle until HSG results are back. Patient to return to clinic for annual and PRN as needed. Documented by Akua Streeter LPN on behalf of: Uriel Meade DO documented in this encounterSac-Osage [id number] Evaluation + Plan note Extracted from:Title:ANES Post GeneralAuthor:Lenny Moreno DODate:10/15/23 Plan Transfer/Discharge: Patient exhibiting no signs of N/V. Hydration status is adequate. Extracted from:Title:Josh Basic PREAuthor:Lenny Moreno DODate: 10/15/23 Plan [place] [employer]hesi[employer] (ASA) physical status classification: Class II. Anesthetic Preoperative Plan: Anesthesia General.[facility] [id number] Hospital Discharge instructions Patient Education 10/15/2023 09:50:27 [...] day. 10/15/2023 09:50:26 Endoscopy, Care After Procedure [facility] (CUSTOM) Endoscopy Care After [...] Document Re-Released: 08/13/2006 ExitCare Patient Information 2009 [employer]. Follow Up Care 09/13/2023 15:40:21 With:Alex Knutson Address: [address] [place] [phone] Business (1) When:1 to 2 weeks Comments:Call for any problems. [facility] 08-12-2024 NoteProgress Note-Physician Patient: INDU ST [...] Daily, # 527 gm, Refills(s) 5, Pharmacy: [facility] #[id number], 167, cm, 09/13/23 14:57:00 EDT, Height/Length Dosing, 48.9, kg, 09/13/23 14:57:00 EDT, Weight Dosing Pantoprazole [address] Tab: 40 mg = 1 tab(s), Oral, Daily, # 30 tab(s), Refills(s) 4, Pharmacy: [facility] #[id number], 167, cm, 09/13/23 14:57:00 EDT, Height/Length Dosing, [...] CT of the abdomen / SNOMED CT 0582170732 / Confirmed Abnormal uterine bleeding. / SNOMED CT 8458437778 / Confirmed Amenorrhea / SNOMED CT 49920316 / Confirmed Anemia / SNOMED CT 678499360 / Confirmed Anxiety / SNOMED CT 73317684 / Confirmed Asthma / SNOMED CT 726669650 / Confirmed Attention deficit hyperactivity disorder / SNOMED CT 3128169421 / Confirmed Benign neoplasm of pituitary gland / SNOMED CT 030110159 / Confirmed Bilateral arthritis of sacroiliac joint / SNOMED CT 1036540117 / Confirmed Bipolar disorder / SNOMED CT 93288947 / Confirmed Chronic rhinitis / SNOMED CT 309229911 / Confirmed Chronic vaginitis / SNOMED CT 15631144 / Confirmed Depressive disorder / SNOMED CT 82717084 / Confirmed Disorder of pituitary gland / SNOMED CT 5573356416 / Confirmed Endometriosis (clinical) / SNOMED CT 067979193 / Confirmed Esophagitis / SNOMED CT 43547388 / Confirmed Fatigue / SNOMED CT 316732700 / Confirmed Gastritis / SNOMED CT 2882782 / Confirmed Heartburn / SNOMED CT 11980790 / Confirmed History of laparoscopy / SNOMED CT 5060608562 / Confirmed Malignant tumor of cervix / SNOMED CT 093124767 / Confirmed Miscarriage / SNOMED CT 10180851 / Confirmed Nausea and vomiting / SNOMED CT 96589911 / Confirmed Pain in pelvis / SNOMED CT 296972952 / Confirmed Prolactin level above reference range / SNOMED CT 3668364556 / Confirmed Prolactinoma / SNOMED CT 810064349 / Confirmed Sciatica / SNOMED CT 58629874 / Confirmed Seasonal allergic rhinitis / SNOMED CT 748613807 / Confirmed Stress-related physiological response affecting medical condition / SNOMED CT 12000820 / Confirmed 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 CenterComment on above:Result Comment: Electronically Signed By: Lenny Moreno DO\.br\Date and Time Signed: 10/15/23 10:06 [id number] NoteColonoscopy Procedure Report Patient: INDU ST Age: [...] Daily, # 527 gm, Refills(s) 5, Pharmacy: [facility] #[id number], 167, cm, 09/13/23 14:57:00 EDT, Height/Length Dosing, 48.9, kg, 09/13/23 14:57:00 EDT, Weight Dosing Pantoprazole [address] Tab: 40 mg = 1 tab(s), Oral, Daily, # 30 tab(s), Refills(s) 4, Pharmacy: [facility] #[id number], 167, cm, 09/13/23 14:57:00 EDT, Height/Length Dosing, [...] terminal ileum Images Procedure images: [id number]_hd_[id number].jpg [id number]_hd_video_[id number].jpg Rec1_hd_video_4_08_[id number]_[id number].jpg Rec1_hd_video_2024_08_12T08_[id number].jpg Rec1_hd_video_2024_08_12T08_[id number].jpg Rec1_hd_video_2024_08_12T08_[id number].jpg Rec1_hd_video_2024_08_12T08_[id number].jpg . Post-Procedure Complications: [...] Education and Follow-up: Counseled: Patient, Family.[facility] Comment on above:Other Comment: Missing Attachment - attachment storage system not supported [id number] Can be viewed in source system Missing Attachment - attachment storage system not supported [id number] Can be viewed in source systemMissing Attachment - attachment storage system not supported [id number] Can be viewed in source systemMissing Attachment - attachment storage system not supported [id number] Can be viewed in source systemMissing Attachment - attachment storage system not supported [id number] Can be viewed in source systemMissing Attachment - attachment storage system not supported [id number] Can be viewed in source systemMissing Attachment - attachment storage system not supported [id number] Can be viewed in source [id number] Note Patient Education - Text Colonoscopy Care After Surgery Please read the instructions outlined below and refer to this sheet in the next few weeks. These discharge instructions provide you with general information [facility] Your [facility] may also give you [...] on [facility] Your doctor may also give you [...] Document Re-Released: 08/13/2006 ExitCare? Patient Information ?[address] [employer] 10-15-2023 NoteProgress Note-Physician Patient: INDU ST Age: [...] Daily, # 527 gm, Refills(s) 5, Pharmacy: [facility] #[id number], 167, cm, 09/13/23 14:57:00 EDT, Height/Length Dosing, 48.9, kg, 09/13/23 14:57:00 EDT, Weight Dosing Pantoprazole [address] Tab: 40 mg = 1 tab(s), Oral, Daily, # 30 tab(s), Refills(s) 4, Pharmacy: [facility] #[id number], 167, cm, 09/13/23 14:57:00 EDT, Height/Length Dosing, [...] CT of the abdomen / SNOMED CT 3566331888 / Confirmed Abnormal uterine bleeding. / SNOMED CT 7607559157 / Confirmed Amenorrhea / SNOMED CT 79145745 / Confirmed Anemia / SNOMED CT 395796938 / Confirmed Anxiety / SNOMED CT 69970922 / Confirmed Asthma / SNOMED CT 455448580 / Confirmed Attention deficit hyperactivity disorder / SNOMED CT 1277470793 / Confirmed Benign neoplasm of pituitary gland / SNOMED CT 456631624 / Confirmed Bilateral arthritis of sacroiliac joint / SNOMED CT 5892081272 / Confirmed Bipolar disorder / SNOMED CT 13490225 / Confirmed Chronic rhinitis / SNOMED CT 315468763 / Confirmed Chronic vaginitis / SNOMED CT 05518349 / Confirmed Depressive disorder / SNOMED CT 98381769 / Confirmed Disorder of pituitary gland / SNOMED CT 1358073119 / Confirmed Endometriosis (clinical) / SNOMED CT 837432579 / Confirmed Esophagitis / SNOMED CT 34236317 / Confirmed Fatigue / SNOMED CT 354562565 / Confirmed Gastritis / SNOMED CT 9143190 / Confirmed Heartburn / SNOMED CT 80556059 / Confirmed History of laparoscopy / SNOMED CT 6021770989 / Confirmed Malignant tumor of cervix / SNOMED CT 341804548 / Confirmed Miscarriage / SNOMED CT 32224053 / Confirmed Nausea and vomiting / SNOMED CT 14848803 / Confirmed Pain in pelvis / SNOMED CT 062730301 / Confirmed Prolactin level above reference range / SNOMED CT 9215247698 / Confirmed Prolactinoma / SNOMED CT 158898590 / Confirmed Sciatica / SNOMED CT 67991916 / Confirmed Seasonal allergic rhinitis / SNOMED CT 228909403 / Confirmed Stress-related physiological response affecting medical condition / SNOMED CT 17825242 / Confirmed Visceral hypersensitivity syndrome / SNOMED CT 5554316239 / Confirmed Weight loss / SNOMED CT 192352563 / Confirmed, Active Problems (31) Abnormal CT of the abdomen Abnormal uterine bleeding. 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 Bipolar disorder Chronic rhinitis Chronic vaginitis Depressive disorder Disorder of pituitary gland Endometriosis (cl (more content not included)...[facility] Comment on above:Result Comment: Electronically Signed By: Lenny Moreno DO\.br\Date and Time Signed: 10/15/23 07:34 [id number] Telephone encounter Note* Telephone Encounter - Twyla Caraballo MA - 08/14/2023 11:08 AM EDT Received MRI results completed 08/02/2023, scanned to chart Twyla Caraballo [employer] II Endocrinology & Metabolism [place] [facility] F20 & X20 [facility]06-11-2024 Miscellaneous Notes* Telephone Encounter - Twyla Caraballo MA - 08/14/2023 11:08 AM EDT Received MRI results completed 08/02/2023, scanned to chart Twyla Caraballo [employer] II Endocrinology & Metabolism [facility] F20 & X20 documented in this encounterW[facility]05-17-2024 Reason for referral (narrative)* Consultation (Routine) - AuthorizedSpecialtyDiagnoses / Procedures Referred By ContactReferred To ContactGastroenterology Abiodun Ochoa, PA-C [address] [address] Do [id number] Gastro1 [address] [place] [address] Referral IDStatusReasonStart DateExpiration DateVisits RequestedVisits [id number] Specialty Services Required / [facility] Work Phone: [phone]) 849-464104-10-2024 NoteHNO ID: [id number] Author: KARINA VINCENT MD Service: ? Author [...] June 13, 2023 TIME of SERVICE: 10:12 [facility]04-10-2024 History of Present illness Narrative* Karina Vincent [...] of SERVICE: 10:12 AM documented in this encounterW[facility]11-18-2021 NoteHNO ID: [id number] Author: Renetta Beltran MD Service: Reproductive Endocrinology [...] Dr. Renetta Beltran M.D. Reproductive Endocrinology and InfertilityLds [id number] NoteHNO ID: [id number] Author: RT Juan(R) Service: Radiology Author Type: [...] Appointments Appointment Date:10/01/2023 09:00:00 AM Scheduled Provider: Location:[facility] Surgical Services Appointment Type:Surgery FT [facility] Evaluation + Plan note Future Appointments Appointment Date:06/20/2024 07:00:00 AM Scheduled Provider: Location:.[facility] Appointment Type:US (FT) Diagnostic Tests Pending * Estradiol Level 06/16/24 Future Scheduled Tests Radiology* US Transvaginal 06/20/24 [facility] Evaluation note* Diagnosis Prolactinoma (HCC)- Primary Benign neoplasm of pituitary gland and craniopharyngeal duct (pouch) 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HCC) Unspecified disorder of the pituitary gland and its hypothalamic control Elevated prolactin level Unspecified endocrine disorder documented in this encounter [facility] Diagnosis Nausea and vomiting, unspecified vomiting type- Primary Gastritis, presence of bleeding unspecified, unspecified chronicity, unspecified gastritis type documented in this encounter [facility] Work Phone: Evaluation note* Diagnosis Female infertility Female infertility of unspecified origin Vaginal odor Unspecified symptom associated with female genital organs [facility] Diagnosis Myalgia- Primary Unspecified myalgia and myositis [facility]* Diagnosis Fallopian tube disorder- Primary Unspecified noninflammatory disorder of ovary, fallopian tube, and broad ligament documented [facility]* Diagnosis Myalgia- Primary Unspecified myalgia and myositis Fallopian tube disorder Unspecified noninflammatory disorder of ovary, fallopian tube, and broad ligament Anovulation Female infertility associated with anovulation Female infertility Female infertility of unspecified origin [facility]* Diagnosis Myalgia- Primary Unspecified myalgia and myositis Bipolar affective disorder, currently manic, moderate ([facility])- Primary Bipolar I disorder, most recent episode (or current) manic, moderate [facility]* Diagnosis Myalgia- Primary Unspecified myalgia and myositis Hospital discharge follow-up Other follow-up examination Hyperemesis of Mild hyperemesis gravidarum, unspecified as to episode of care Hemorrhage in early , antepartum Unspecified hemorrhage in early , antepartum Subchorionic hematoma in first trimester, single or unspecified fetus [facility]* Diagnosis Myalgia- Primary Unspecified myalgia and myositis Missed menses documented [facility]* Diagnosis Myalgia- Primary Unspecified myalgia and myositis First trimester state, incidental 11 weeks gestation of Nausea and vomiting, unspecified vomiting type Hyperemesis of Mild hyperemesis gravidarum, unspecified as to episode of care Encounter for in vitro fertilization Encounter for assisted reproductive fertility procedure cycle Anxiety, generalized ([facility]) [facility]* Diagnosis Nausea and vomiting, unspecified vomiting type- Primary documented in this encounter [facility] Work Phone: Evaluation note* Diagnosis 14 weeks gestation of ([facility])- Primary 15 weeks gestation of ([facility]) Nausea and vomiting, unspecified vomiting type Chest pain, unspecified type documented in this encounter [facility] Work Phone: Evaluation note* Diagnosis Myalgia- Primary Unspecified myalgia and myositis Well woman exam with routine gynecological exam Routine gynecological examination STD exposure Second trimester ([facility]) state, incidental 15 weeks gestation of ([facility]) Screening, , for anatomic survey ([facility]) Encounter for anatomic survey documented in this encounter [facility] Healthcare[facility]* Diagnosis Hyperemesis of - Primary Mild hyperemesis gravidarum, unspecified as to episode of care Poor weight gain of , second trimester In vitro fertilization Encounter for assisted reproductive fertility procedure cycle 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, antepartum Abnormal ultrasound of kidney [facility] Diagnosis 16 weeks gestation of - Primary resulting from in vitro fertilization in second trimester Hyperemesis of Mild hyperemesis gravidarum, unspecified as to episode of care Cyclical vomiting with nausea Marijuana use during renal anomaly, single gestation 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 Bipolar disease 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 trimester ([facility]) Anxiety during documented [facility]* Diagnosis Hyperemesis of Mild hyperemesis gravidarum, unspecified as to episode of care Poor weight gain of , second trimester documented [facility]* Diagnosis Nausea and vomiting during [O21.9]- Primary [facility] Diagnosis Hyperemesis of - Primary Mild hyperemesis gravidarum, unspecified as to episode of care Gastroesophageal reflux disease, unspecified whether esophagitis present [facility]* Diagnosis Myalgia- Primary Unspecified myalgia and myositis Second trimester ([facility]) state, incidental 20 weeks gestation of ([facility]) documented in this encounter [facility] HealthcareEvaluation note* Diagnosis Hyperemesis of - Primary Mild hyperemesis gravidarum, unspecified as to episode of care renal anomaly, single gestation Marijuana use during 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 [facility]* Diagnosis Myalgia- Primary Unspecified myalgia and myositis 23 weeks gestation of ([facility]) Second trimester ([facility]) state, incidental Hyperemesis of ([facility]) Mild hyperemesis gravidarum, unspecified as to episode of care resulting from in vitro fertilization in second trimester ([facility]) Diabetes mellitus screening Screening for diabetes mellitus documented in this encounter [facility] HealthcareEvaluation note* Diagnosis 16 weeks gestation of Hyperemesis of Mild hyperemesis gravidarum, unspecified as to episode of care documented [facility] encounter [facility]* Diagnosis Hyperemesis of - Primary Mild hyperemesis gravidarum, unspecified as to episode of care renal anomaly, single gestation Marijuana use during 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 Nausea and vomiting during Poor weight gain of , second trimester In vitro fertilization Encounter for assisted reproductive fertility procedure cycle 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, antepartum documented in this encounter [facility]* Diagnosis Myalgia- Primary Unspecified myalgia and myositis 27 weeks gestation of ([facility]) Second trimester ([facility]) state, incidental Hyperemesis of ([facility]) Mild hyperemesis gravidarum, unspecified as to episode of care resulting from in vitro fertilization in second trimester ([facility]) Breech presentation, single or unspecified fetus ([facility]) documented in this encounter [facility] HealthcareEvaluation note* Diagnosis Myalgia- Primary Unspecified myalgia and myositis Anemia, unspecified type- Primary Third trimester ([facility]) state, incidental 29 weeks gestation of ([facility]) Bipolar 1 disorder (HCC) PTSD (post-traumatic stress disorder) Posttraumatic stress disorder documented [facility]* Diagnosis renal anomaly, single gestation- Primary Marijuana use during resulting from in vitro fertilization in second trimester 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 [facility] Diagnosis 16 weeks gestation of Hyperemesis of Mild hyperemesis gravidarum, unspecified as to episode of care documented [facility]* Diagnosis 30 weeks gestation of - Primary [facility]* Diagnosis Myalgia- Primary Unspecified myalgia and myositis Third trimester ([facility]) state, incidental 31 weeks gestation of ([facility]) Encounter for in vitro fertilization Encounter for assisted reproductive fertility procedure cycle Hemorrhoids, unspecified hemorrhoid type documented in this encounter [facility] HealthcareEvaluation note* Diagnosis Myalgia- Primary Unspecified myalgia and myositis Third trimester ([facility]) state, incidental 33 weeks gestation of ([facility]) documented [facility] this encounter [facility] Narrative No data available for this section [facility] Discharge instructions* Attachments The following attachments cannot be sent through Care Everywhere. * Gastritis ED (Nauruan) * Nausea and Vomiting, Adult ED ([place]aur[place]) * Cannabis hyperemesis syndrome ([place]) [facility] Work Phone: Hospital Discharge instructions No data available for this section [facility] Discharge instructions* Attachments The following attachments cannot be sent through Care Everywhere. * Nausea and Vomiting, Adult ED ([place]) [facility] Work Phone: InstructionsNot on filedocumented in this encounter [facility] SystemInstructionsNot on filedocumented in this encounter [facility] SystemInstructionsNot on filedocumented in this encounter [facility] SystemInstructionsNot on filedocumented in this encounter [facility] SystemInstructionsNot on filedocumented in this encounter [facility] SystemInstructionsNot on filedocumented in this encounter [facility] SystemInstructionsNot on filedocumented in this encounter [facility] SystemInstructionsNot on filedocumented in this encounter [facility] SystemInstructions* Attachments The following attachments cannot be sent through Care Everywhere. * Preeclampsia ([place]aur[place]) documented in this encounterProMedica Health SystemInstructionsNot on file documented in this encounterProMedica Health SystemInstructionsNot on file documented in this encounterProMedica Health SystemInstructionsNot on file documented in this encounterProMedica Health SystemInstructionsNot on file documented in this encounterProJohn Paul Jones Hospital Health SystemProgress note No data available for this section [facility] Reason for visit Narrative* Auth/CertSpecialtyDiagnoses / ProceduresReferred By ContactReferred To Contact Diagnoses 14 weeks gestation of ([facility]) [place] [address] [place] [address] Phone: tel: fax: [facility] Medicine [address] [place] [address] Phone: tel: fax: Referral IDStatusReasonStart DateExpiration DateVisits RequestedVisits [id number] [facility] Work Phone: Relbxp for visit Narrative* Consultation (Routine) - Pending ReviewSpecialtyDiagnoses / ProceduresReferred By ContactReferred To ContactMaternal and Medicine Diagnoses Hyperemesis of Poor weight gain of , second trimester Mario Alberto Ortiz MD [address] [facility]Michael DAUGHERTY, [address] [place] [address] Phone: tel: fax: Maternal- Medicine at [facility] [address] [place] [address] Phone: tel: fax: Referral IDStatusReasonAngela DateExpiration DateVisits RequestedVisits [id number] Review Specialty Services Required [facility] Summary Purpose Family History No Family History [...] No data available for this section No data available for this section No [...] No data available for this section No data available for this section No [...] Found Advance Directives No Advanced Directives Records Found Date ActivatedDate InactivatedComments08/15/2024 3:05 AMQuestionAnswerComments Plan of Care:* Code Status Discussion Not Completed Decision Maker:* Provider Rationale:* Patient condition does not warrant discussion Reason for Referral SpecialtyDiagnoses / ProceduresReferred By ContactReferred To ContactMR IMAGING Diagnoses 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HCC) Procedures MRI PITUITARY WO/W IVCON MRI BRAIN BRAIN STEM W/O W/CONTRAST MATERIAL Karina Vincent MD [address] [place] [address] [facility] [place] [address] Referral IDStatusReasonStart DateExpiration DateVisits RequestedVisits [id number] Review Auto-Generated Referral Additional Source Comments INFORMATION SOURCE (unrecogn ized section and content) DATE CREATED AUTHOR 04/15/2020 [facility] DATE CREATED AUTHOR AUTHOR'S ORGANIZ ATION 01/22/2021 [facility] DATE CREATED AUTHOR AUTHOR'S ORGANIZ ATION 07/30/2023 [facility] DATE CREATED AUTHOR AUTHOR'S ORGANIZ ATION 08/24/2023 [facility] DATE CREATED AUTHOR AUTHOR'S ORGANIZ ATION 09/19/2023 [facility] DATE CREATED AUTHOR AUTHOR'S ORGANIZ ATION 10/16/[address] [facility] DATE CREATED AUTHOR AUTHOR'S ORGANIZ ATION 10/18/[address] [facility] DATE CREATED AUTHOR AUTHOR'S ORGANIZ ATION 10/19/[address] [facility] DATE CREATED AUTHOR AUTHOR'S ORGANIZ ATION 02/21/[address] [facility] DATE CREATED AUTHOR AUTHOR'S ORGANIZ ATION 02/23/[address] [facility] DATE CREATED AUTHOR AUTHOR'S ORGANIZ ATION 02/24/[address] [facility] DATE CREATED AUTHOR AUTHOR'S ORGANIZ ATION 05/02/[address] [facility] DATE CREATED AUTHOR AUTHOR'S ORGANIZ ATION 05/05/[address] [facility] DATE CREATED AUTHOR AUTHOR'S ORGANIZ ATION 05/08/[address] [facility] DATE CREATED AUTHOR AUTHOR'S ORGANIZ ATION 05/15/[address] [facility] DATE CREATED AUTHOR AUTHOR'S ORGANIZ ATION 05/16/[address] [facility] DATE CREATED AUTHOR AUTHOR'S ORGANIZ ATION 05/22/[address] [facility] DATE CREATED AUTHOR AUTHOR'S ORGANIZ ATION 05/23/[address] [facility] DATE CREATED AUTHOR AUTHOR'S ORGANIZ ATION 06/01/[address] [facility] DATE CREATED AUTHOR AUTHOR'S ORGANIZ ATION 06/08/[address] [facility] DATE CREATED AUTHOR AUTHOR'S ORGANIZ ATION 06/09/[address] [facility] DATE CREATED AUTHOR AUTHOR'S ORGANIZ ATION 06/12/[address] [facility] DATE CREATED AUTHOR AUTHOR'S ORGANIZ ATION 06/14/[address] [facility] DATE CREATED AUTHOR AUTHOR'S ORGANIZ ATION 06/15/[address] [facility] DATE CREATED AUTHOR AUTHOR'S ORGANIZ ATION 06/17/[address] [facility] DATE CREATED AUTHOR AUTHOR'S ORGANIZ ATION 06/20/[address] [facility] DATE CREATED AUTHOR AUTHOR'S ORGANIZ ATION 06/21/[address] [facility] DATE CREATED AUTHOR AUTHOR'S ORGANIZ ATION 06/22/[address] [facility] DATE CREATED AUTHOR AUTHOR'S ORGANIZ ATION 06/23/[address] [facility] DATE CREATED AUTHOR AUTHOR'S ORGANIZ ATION 06/24/[address] [facility] DATE CREATED AUTHOR AUTHOR'S ORGANIZ ATION 07/16/2024 [facility] DATE CREATED AUTHOR AUTHOR'S ORGANIZ ATION 08/15/2024 [facility] DATE CREATED AUTHOR AUTHOR'S ORGANIZ ATION 08/16/[address] [facility] DATE CREATED AUTHOR AUTHOR'S ORGANIZ ATION 08/17/[address] [facility] DATE CREATED AUTHOR AUTHOR'S ORGANIZ ATION 08/19/2024 [facility] DATE CREATED AUTHOR AUTHOR'S ORGANIZ ATION 08/23/2024 [facility] DATE CREATED AUTHOR AUTHOR'S ORGANIZ ATION 09/22/[address] [facility] DATE CREATED AUTHOR AUTHOR'S ORGANIZ ATION 10/05/2024 [facility] DATE CREATED AUTHOR AUTHOR'S ORGANIZ ATION 11/17/[address] [facility] DATE CREATED AUTHOR AUTHOR'S ORGANIZ ATION 11/18/[address] [facility] DATE CREATED AUTHOR AUTHOR'S ORGANIZ ATION 11/24/[address] [facility] DATE CREATED AUTHOR AUTHOR'S ORGANIZ ATION 12/08/2024 [facility] DATE CREATED AUTHOR AUTHOR'S ORGANIZ ATION 12/11/2024 [facility] DATE CREATED AUTHOR AUTHOR'S ORGANIZ ATION 01/01/2025 [facility] DATE CREATED AUTHOR AUTHOR'S ORGANIZ ATION 01/10/[address] [facility] DATE CREATED AUTHOR AUTHOR'S ORGANIZ ATION 01/12/[address] [facility] Source Comments (unrecognize d section and content) In the event this informatio n is protected by the Federal Confidentiality of Alcohol and Drug Abuse Patient Records regulations: The Federal rules restrict any use of the information to criminally investigate or prosecute any alcohol or drug abuse patient.[facility] CenterIn the event this information is protected by the Federal Confidentiality of Alcohol and Drug Abuse Patient Records regulations: The Federal rules restrict any use of the information to criminally investigate or prosecute any alcohol or drug abuse patient.[facility] Reason for Visit (unrecogniz ed section and content) ReasonCommentsPituitary ProblemReasonCommentsn/v. chest painReasonComments ResultsReasonCommentsTelehealthInfertilityReasonCommentsInfertilityReason CommentsMental Health ProblemPatient feels in a manic phase.ReasonCommentsER Follow-upPt present today for an ER follow up. Pt was seen at [facility] on 06/19/2024 for hyperemesis w/.ReasonCommentsAmenorrheaReasonComments Routine VisitReasonCommentsVomiting During PregnancyPatient is almost 14 weeks and she reports having mid sternal chest pain and vomiting thatstarted around 0130 this am. Patient reports that she smoked 2 joints around 0130 and continues to vomit. Denies fever, has had some urinary urgency.Reason CommentsIVF pregnancyanxiety/panic attacksHEGWeight LossMed ManagementTHC use ReasonCommentsMed Refill Care Teams (unrecognized sec tion and content) Team MemberRelationshipSpecialtyStart DateEnd Date Uriel Meade DO [address] [place] [address] ReferringOb/Gyn/04/28Team MemberRelationshipSpecialtyStart DateEnd Date Uriel Meade DO [address] [place] [place] [address] ReferringOb/Gyn06/05/23Team MemberRelationshipSpecialtyStart DateEnd Date Carolyne Collazo MD [address] [place] [address] PCP - GeneralFamily Medicine08/28/22Team MemberRelationshipSpecialtyStart DateEnd Date Carolyne Collazo MD [address] [place] [address] PCP - GeneralFamily Medicine08/28/22Team MemberRelationshipSpecialtyStart DateEnd Date Carolyne Collazo MD [address] [place] [address] PCP - GeneralFamily Medicine08/28/22Team MemberRelationshipSpecialtyStart DateEnd Date Carolyne Collazo MD [address] [place] [address] PCP - GeneralFamily Medicine08/28/22Team MemberRelationshipSpecialtyStart DateEnd Date Carolyne Collazo MD [address] [place] [address] PCP - GeneralFamily Medicine08/28/22Team MemberRelationshipSpecialtyStart DateEnd Date Carolyne Collazo MD [address] [place] [address] PCP - GeneralFamily Medicine08/28/22Team MemberRelationshipSpecialtyStart DateEnd Date Carolyne Collazo MD [address] [place] [address] PCP - GeneralFamily Medicine08/28/22Team MemberRelationshipSpecialtyStart DateEnd Date Carolyne Collazo MD [address] [place] [address] PCP - GeneralFamily Medicine08/28/22Team MemberRelationshipSpecialtyStart DateEnd Date Carolyne Collazo MD [address] [place] [address] PCP - GeneralFamily Medicine08/28/22Team MemberRelationshipSpecialtyStart DateEnd Date Carolyne Collazo MD [address] [place] [address] PCP - GeneralFamily Medicine08/28/22Team MemberRelationshipSpecialtyStart DateEnd Date Carolyne Collazo MD [address] [place] [address] PCP - GeneralFamily Medicine08/28/22Team MemberRelationshipSpecialtyStart DateEnd Date Carolyne Collazo MD [address] [place] [address] PCP - GeneralFamily Medicine08/28/22Team MemberRelationshipSpecialtyStart DateEnd Date Carolyne Collazo MD [address] [place] [address] PCP - GeneralFamily Medicine08/28/22Team MemberRelationshipSpecialtyStart DateEnd Date Carolyne Collazo MD [address] [place] [address] PCP - GeneralFamily Medicine08/28/22Team MemberRelationshipSpecialtyStart DateEnd Date Carolyne Collazo MD [address] [place] [address] PCP - GeneralFamily Medicine08/28/22Team MemberRelationshipSpecialtyStart DateEnd Date Carolyne Collazo MD [address] [place] [address] PCP - GeneralFamily Medicine08/28/22Team MemberRelationshipSpecialtyStart DateEnd Date Carolyne Collazo MD [address] [place] [address] PCP - GeneralFamily Medicine08/28/22am MemberRelationshipSpecialtyStart DateEnd Date Yasmin Welch DO [address] [place] [address] PCP - [facility]Unity[facility] Medicine08/13/24Team MemberRelationshipSpecialtyStart DateEnd Date Yasmin Welch DO [address] [place] [address] PCP - Generalmily Medicine08/13/24Team MemberRelationshipSpecialtyStart DateEnd Date Yasmin Welch DO [address] [place] [address] PCP - Generalmily Medicine08/13/24Team MemberRelationshipSpecialtyStart DateEnd Date Carolyne Collazo MD [address] [place] [address] PCP - GeneralFamily Medicine08/28/22Team MemberRelationshipSpecialtyStart DateEnd Date Carolyne Collazo MD [address] [place] [address] PCP - GeneralFamily Medicine08/28/22Team MemberRelationshipSpecialtyStart DateEnd Date Carolyne Collazo MD [address] [place] [address] PCP - GeneralFamily Medicine08/28/22Team MemberRelationshipSpecialtyStart DateEnd Date Yasmin Welch DO [address] [place] [address] PCP - GeneralFamily Medicine09/03/24Team MemberRelationshipSpecialtyStart DateEnd Date Yasmin Welch DO [address] [place] [address] PCP - GeneralFamily Medicine09/03/24Team MemberRelationshipSpecialtyStart DateEnd Yasmin Welch DO [address] [place] [address] PCP - GeneralFamily Medicine09/03/24Team MemberRelationshipSpecialtyStart DateEnd Yasmin Welch DO [address] [place] [address] PCP - GeneralFamily Medicine09/03/24Team MemberRelationshipSpecialtyStart DateEnd Carolyne Collazo MD [address] [place] [address] PCP - GeneralFamily Medicine08/28/22Team MemberRelationshipSpecialtyStart DateEnd Yasmin Welch DO [address] [place] [address] PCP - GeneralFamily Medicine09/03/24Team MemberRelationshipSpecialtyStart DateEnd Yasmin Welch DO [address] [place] [address] PCP - GeneralFamily Medicine09/03/24Team MemberRelationshipSpecialtyStart DateEnd Date Yasmin Welch DO [address] [place] [address] PCP - GeneralFamily Medicine09/03/24Team MemberRelationshipSpecialtyStart DateEnd Date Yasmin Welch DO [address] [place] [address] PCP - GeneralFamily Medicine09/03/24Team MemberRelationshipSpecialtyStart DateEnd Date Yasmin Welch DO [address] [place] [address] PCP - GeneralFamily Medicine09/03/24Team MemberRelationshipSpecialtyStart DateEnd [place] [address] [place] [address] PCP - GeneralFamily Medicine08/28/22Team MemberRelationshipSpecialtyStart DateEnd Date Yasmin Welch DO [address] [place] [address] PCP - GeneralFamily Medicine09/03/24Team MemberRelationshipSpecialtyStart DateEnd Date Yasmin Welch DO [address] [place] [address] PCP - GeneralFamily Medicine09/03/24Team MemberRelationshipSpecialtyStart DateEnd Date Yasmin Welch DO [address] [place] [address] [facility] - [facility]09/03/24Team MemberRelationshipSpecialtyMyer[place] DateEnd Carolyne Collazo MD [address] [place] [address] P[address] [facility]08/28/22Team MemberRelationshipSpecialJ.W. [facility] DateEnd Date Carolyne Collazo MD [address] [place] [address] PCP [facility]08/28/22 Scheduled Active and Recently Administ ered Medications (unrecognized section and content) Medication Order// diphenhydrAMINE (BENADryl) injection 25 mg (COMPLETED) 25 mg, intravenous, Once, On Sun07/20/23 at 1455, For 1 dose, If giving IV push, max rate of 25 mg/min. * 145 (Given - Provider: Caroline Brennan RN) famotidine PF (Pepcid) injection 20 mg (COMPLETED) 20 mg, intravenous, Once, On Sun07/20/23 at 1910, For 1 dose * 191 (Given - Provider: Deni Sandra RN) haloperidol lactate (Haldol) injection 5 mg (COMPLETED) 5 mg, intramuscular, Once, On Sun07/20/23 at 1455, For 1 dose, Patients receiving IV haloperidol should be on continuous cardiac monitoring. * 1500 (Given - Provider: Caroline Brennan RN) iohexol (OMNIPaque) 350 mg iodine/mL solution 75 mL (COMPLETED) 75 mL, intravenous, Once in imaging, Starting on Sun07/20/23 at 1739, For 1 dose * 1740 (Given - Provider: Akin Magaña) ketorolac (Toradol) injection 15 mg (COMPLETED) 15 mg, intravenous, Once, On Sun07/20/23 at 1650, For 1 dose * 1700 (Given - Provider: Caroline Brennan RN) lactated Ringer's bolus 1,000 mL (COMPLETED) 1,000 mL, intravenous, at 999 mL/hr, Administer over 1 Hours, Once, On Sun07/20/23 at 1455, For 1 dose * 1500 (New Bag - Provider: Caroline Brennan RN) * 1600 (Stopped - Provider: Caroline Brennan RN) morphine injection 4 mg (COMPLETED) 4 mg, intravenous, Once, On Sun07/20/23 at 1540, For 1 dose * 1540 (Given - Provider: Caroline Brennan RN) morphine injection 4 mg (COMPLETED) 4 mg, intravenous, Once, On Sun07/20/23 at 1815, For 1 dose * 1826 (Given - Provider: Caroline Brennan RN) Medication Order//01/2025 alum-mag hydroxide-simeth (Mylanta) 200-200-20 mg/5 mL oral suspension 30 mL (COMPLETED) 30 mL, oral, Once, On Sun08/13/24 at 0945, For 1 dose * 1006 (Given - Provider: Fe Phillips RN) HYDROmorphone (Dilaudid) injection 0.2 mg (COMPLETED) 0.2 mg, intravenous, Once, On Sun08/13/24 at 1050, For 1 dose * 1102 (Given - Provider: Fe Phillips RN) lidocaine (Xylocaine) 2 % mouth solution 15 mL (COMPLETED) 15 mL, oral, Once, On Sun08/13/24 at 0945, For 1 dose * 1006 (Given - Provider: Fe Phillips, CINDY) ondansetron (Zofran) injection 4 mg (COMPLETED) 4 mg, intravenous, Once, On Sun08/13/24 at 0930, For 1 dose, When administering via IV Push, administer over 3-5 minutes. * 0938 (Given - Provider: Fe Phillips RN) promethazine (Phenergan) 12.5 mg in sodium chloride 0.9% 50 mL IV (COMPLETED) 12.5 mg, intravenous, Administer over 15 Minutes, Once, On Sun08/13/24 at 1050, For 1 dose * 1105 (New Bag - Provider: Fe Phillips RN) * 1138 (Stopped - Provider: Fe Phillips RN) sodium chloride 0.9 % bolus 1,000 mL (COMPLETED) 1,000 mL, intravenous, at 999 mL/hr, Administer over 1 Hours, Once, On Sun08/13/24 at 0930, For 1 dose * 0938 (New Bag - Provider: Fe Phillips, RN) * 1138 (Stopped - Provider: Fe Phillips, RN) Medication Order// acetaminophen (Tylenol) suppository 650 mg 650 mg, rectal, Every 6 hours scheduled, First dose on Sun08/15/24 at 1800, If ordered PRN for pain, nurse is permitted to administer this medication for higher pain scores based on patient preference? Yes * 181 (Given - Provider: Brittany Diez, CINDY) capsicum (Zostrix) 0.075 % topical cream Topical, 3 times daily, First dose on Sun08/15/24 at 1600, Apply to: abdomen or chest * 1600 (Due) * 2116 (Given - Provider: Isabella Harris, CINDY) diphenhydrAMINE (BENADryl) injection 12.5 mg (COMPLETED) 12.5 mg, intravenous, Once, On Sun08/15/24 at 1020, For 1 dose, If giving IV push, max rate of 25 mg/min. * 1022 (Given - Provider: Mery Cole RN) diphenhydrAMINE (BENADryl) injection 25 mg (COMPLETED) 25 mg, intravenous, Once, On Sun08/15/24 at 0000, For 1 dose, If giving IV push, max rate of 25 mg/min. * 0009 (Given - Provider: Karis Newton, CINDY) diphenhydrAMINE (BENADryl) injection 25 mg 25 mg, intravenous, Every 6 hours, First dose on Sun08/15/24 at 0310, If giving IV push, max rate of 25 mg/min. * 0532 (Given - Provider: Karis Newton, RN) * 1330 (Given - Provider: Brittany Diez, CINDY) * 2001 (Given - Provider: Isabella Harris, CINDY) famotidine PF (Pepcid) injection 20 mg (COMPLETED) 20 mg, intravenous, Administer over 2 Minutes, Once, On Moriah 08/14/24 at 2305, For 1 dose * 232 (Given - Provider: Karis Newton, CINDY) famotidine PF (Pepcid) injection 20 mg 20 mg, intravenous, Administer over 2 Minutes, Every 12 hours scheduled, First dose on Sun08/15/24 at 2100 * 2128 (Given - Provider: Isabella Harris RN) haloperidol lactate (Haldol) injection 5 mg (COMPLETED) 5 mg, intramuscular, Once, On Sun08/15/24 at 1615, For 1 dose, Patients receiving IV haloperidol should be on continuous cardiac monitoring. * 1614 (Given - Provider: Brittany Diez RN - Comment: right thigh) HYDROmorphone (Dilaudid) injection 0.5 mg (COMPLETED) 0.5 mg, intravenous, Once, On Sun08/15/24 at 0030, For 1 dose * 0028 (Given - Provider: Karis Newton RN) HYDROmorphone PF (Dilaudid) injection 0.2 mg (COMPLETED) 0.2 mg, intravenous, Once, On Sun08/15/24 at 1330, For 1 dose * 1330 (Given - Provider: Brittany Diez RN) hydrOXYzine HCL (Atarax) tablet 25 mg (COMPLETED) 25 mg, oral, Once, On Sun08/15/24 at 2030, For 1 dose * 2117 (Given - Provider: Isabella Harris RN) ketorolac (Toradol) injection 30 mg (COMPLETED) 30 mg, intravenous, Once, On Sun08/15/24 at 0900, For 1 dose * 0911 (Given - Provider: Mery Cole RN) labetaloL (Normodyne,Trandate) injection 5 mg (COMPLETED) 5 mg, intravenous, Once, On Moriah 08/14/24 at 2305, For 1 dose, Give at rate of 10 mg/min. * 2327 (Given - Provider: Karis Newton RN) magnesium sulfate 2 g in sterile water for injection 50 mL (COMPLETED) 2 g, intravenous, at 25 mL/hr, Administer over 2 Hours, Once, On Sun08/15/24 at 0310, For 1 dose * 0934 (New Bag - Provider: Mery Cole, CINDY) * 1134 (Stopped - Provider: Mery Cole, CINDY) metoclopramide (Reglan) injection 10 mg (COMPLETED) 10 mg, intravenous, Once, On Moriah 08/14/24 at 2355, For 1 dose * 0007 (Given - Provider: Karis Newton RN) metoclopramide (Reglan) injection 10 mg 10 mg, intravenous, Every 6 hours scheduled, First dose on Sun08/15/24 at 0600 * 0533 (Given - Provider: Karis Newton RN) * 1209 (Given - Provider: Mery Cole, RN) * 1805 (Given - Provider: Brittany Diez RN) OLANZapine (ZyPREXA) tablet 2.5 mg 2.5 mg, oral, 2 times daily, First dose on Sun08/15/24 at 0900, On hold since Sun08/15/2024 at 1557until manually unheld * 1455 (Given - Provider: Brittany Diez RN) * 1557 (Held by provider - Provider: Karis Obregon MD - Reason: Other) * 2100 (Dose Auto Held - Provider: Karis Obregon MD) OLANZapine zydis (ZyPREXA) disintegrating tablet 2.5 mg 2.5 mg, oral, 2 times daily, First dose on Sun08/15/24 at 2100 * 2117 (Given - Provider: Isabella Harris RN) ondansetron (Zofran) injection 4 mg (COMPLETED) 4 mg, intravenous, Once, On Moriah 08/14/24 at 2345, For 1 dose, When administering via IV Push, administer over 3-5 minutes. * 2348 (Given - Provider: Karis Newton RN) ondansetron (Zofran) injection 4 mg 4 mg, intravenous, Every 6 hours, First dose on Sun08/15/24 at 0310, When administering via IV Push, administer over 3-5 minutes. * 0643 (Given - Provider: Karis Newton RN) * 1327 (Given - Provider: Nahomi Elder RN) * 2001 (Given - Provider: Isabella Harris RN) ondansetron (Zofran) injection 4 mg (COMPLETED) 4 mg, intravenous, Once, On Sun08/15/24 at 1010, For 1 dose, When administering via IV Push, administer over 3-5 minutes. * 1018 (Given - Provider: Mery Cole, RN) pantoprazole (Protonix) injection 40 mg 40 mg, intravenous, Daily, First dose on Sun08/15/24 at 0900, Reconstitute each 40 mg vial with 10 mL NS to make 4 mg/mL solution. * 0932 (Given - Provider: Mery Cole, RN) perflutren lipid microspheres (Definity) injection 0.5-10 [...] not been completed. Following activation, the product willappear as a milky white suspension and may [...] Hours, Every 2 hours, First dose on Sun08/15/24at 0310, For 2 doses, Total dose is 40 mEq via peripheral line. * 0400 (New Bag - Provider: Karis Newton RN) * 0702 (Stopped - Provider: Karis Newton, CINDY) * 0703 (New Bag - Provider: Karis Newton, CINDY) * 0903 (Stopped - Provider: Mery Cole, CINDY) vitamin (iron-folic) tablet 1 tablet 1 tablet, oral, Daily, First dose on Sun08/15/24 at 0900, provides 0.8 mg folic acid * 1432 (Not Given - Provider: Brittany Diez RN - Reason: Contraindicated) promethazine (Phenergan) 12.5 mg in sodium chloride 0.9% 50 mL IV (COMPLETED) 12.5 mg, intravenous, Administer over 15 Minutes, Once, On Sun08/15/24 at 1015, For 1 dose * 1033 (New Bag - Provider: Mery Cole, CINDY) * 1048 (Stopped - Provider: Mery Cole, CINDY) QUEtiapine (SEROquel) tablet 50 mg 50 mg, oral, 2 times daily, First dose on Sun08/15/24 at 0900 * 1455 (Given - Provider: Brittany Diez RN) scopolamine (Transderm-Scop) patch 1 patch 1 patch, transdermal, Administer over 72 Hours, Every 72 hours, First dose on Sun08/15/24 at 0310, Wash hands before and after application to avoid drug contact with eyes. Apply to hairless area of skin behind the ear. Once patch has been affixed behind ear, do not touch while being worn. * 0345 (Medication Applied - Provider: Karis Newton RN) senna (Senokot) 8.8 mg/5 mL syrup 5 mL 5 mL, oral, 2 times daily, First dose on Sun08/15/24 at 0900 * 0927 (Not Given - Provider: Mery Cole RN - Reason: Patient/family refused) * 2117 (Not Given - Provider: Isabella Harris RN [...] 1105, For IV push use, administer over 1-2minutes. * 1208 (Given - Provider: Mery Cole, CINDY) Medication Order// dextrose 5 % and lactated Ringer's infusion (CANCELED) 125 mL/hr, intravenous, Continuous, Starting on Sun08/14/24 at 2305, For 1 day * 0019 (New Bag - Provider: Karis Newton, RN) * 0312 (Stopped - Provider: Karis Newton RN - Comment: [Order ends at this time. Document the following action when infusion is complete: Stopped]) dextrose 5 % and lactated Ringer's infusion 125 mL/hr, intravenous, Continuous, Starting on Sun08/15/24 at 0310, For 1 day * 0320 (New Bag - Provider: Karis Newton, CINDY) * 0927 (Rate/Dose Verify - Provider: Mery Cole, RN) * 1209 (Rate/Dose Verify - Provider: Mery Cole, RN) Medication Order// benzocaine-menthol (Cepastat Sore Throat) lozenge 1 lozenge 1 lozenge, Mouth/Throat, Every 2 hour PRN, sore throat, Starting on Sun08/15/24 at 1540 * 1630 (Given - Provider: Brittany Diez RN) bisacodyl (Dulcolax) suppository 10 mg 10 mg, rectal, Daily PRN, constipation, first line, Severe, Starting on Sun08/15/24 at 0305 calcium carbonate (Tums) 500 mg (200 mg elemental) chewable tablet 1 tablet 1 tablet, oral, Every 6 hours PRN, heartburn, Starting on Sun08/15/24 at 0305 * 0806 (Given - Provider: Mery Cole, CINDY) hydrALAZINE (Apresoline) injection 5 mg 5 mg, intravenous, Administer over 2 Minutes, Once as needed, Systolic greater than or equal to 160OR Diastolic greater than or equal to 110, Starting on Sun08/15/24 at 0305, For 1 dose, Consult provider prior to administration. Push over more than 2 minutes. Systolic greater than or equal to 160 OR Diastolic greater than or equal to 110. Repeat blood pressure in 20 minutes. Contraindication: cor onary artery disease (CAD); Caution in suspected CAD HYDROmorphone (Dilaudid) injection 0.2 mg (CANCELED) 0.2 mg, intravenous, Every 3 hours PRN, pain severe (7-10), first line, Starting on Sun08/15/24 at 0305 * 0346 (Given - Provider: Karis Newton, RN) * 0644 (Given - Provider: Karis Newton, RN) * 0941 (Given - Provider: Mery Cole, CINDY) * 1319 (Given - Provider: Brittany Diez, RN) labetaloL (Normodyne,Trandate) injection 20 mg 20 mg, intravenous, Administer over 2 Minutes, Once as needed, Systolic greater than or equal to 160 OR Diastolic greater than or equal to 110, Starting on Sun08/15/24 at 0305, For 1 dose, Consult provider prior to administration. Push over more than 2 minutes. Systolic greater than or equal to 160OR Diastolic greater than or equal to 110. Repeat blood pressure in 10 minutes. Contraindications: a ctive asthma, heart disease, heart failure, maternal bradycardia < 60. lidocaine (Xylocaine) 10 mg/mL (1 %) injection 0.5 mL 0.5 mL, subcutaneous, Once as needed, Prior to IV insertion, Starting on Sun08/15/24 at 0305, For 1dose khlgkrjxx-moinpahyyiKAWBT-Cdkxdt 1:1:1 Magic Mouthwash 10 mL, Swish & Swallow, Every 6 hours PRN, stomatitis, mucositis, other, GERD, Starting on Sun08/15/24 at 1306 * 1455 (Given - Provider: Brittany Diez, CINDY) magnesium hydroxide (Milk of Magnesia) 400 mg/5 mL suspension 10 mL 10 mL, oral, Every 24 hours PRN, constipation, second line, Starting on Sun08/15/24 at 0305, Followadministration with 8 ounces of water. NIFEdipine (Procardia) [...] if patient is unable to take orally. * 0346 (Given - Provider: Karis Newton RN) prochlorperazine (Compazine) suppository 25 mg(Linked Group 1) 25 mg, rectal, Every 12 hours PRN, nausea/vomiting, first line, Starting on Sun08/15/24 at 0305, Give TX if patient is unable to take orally or receive by injection. * 0346 (See Alternative - Provider: Karis Newton RN) prochlorperazine (Compazine) tablet 10 mg(Linked Group 1) 10 mg, oral, Every 6 hours PRN, nausea/vomiting, first line, Starting on Sun08/15/24 at 0305 * 0346 (See Alternative - Provider: Karis Newton RN) simethicone (Mylicon) chewable tablet 80 mg 80 mg, oral, 4 times daily PRN, flatulence, Starting on Sun08/15/24 at 0305 Order Group 1: prochlorperazine (Compazine) tablet 10 [...] line, Starting on Sun08/15/24 at 0305, Give TX if patient is unable to take orally or receive by injection. FOR RECORDS PERTAINING TO PATIENTS WHO ARE [...] BE BASED ON THE PRIMARY CLINICAL RECORDS. [facility], [facility]. provides no warranty or guarantee of the accuracy or completeness of information in this document.
== END 2025-01-13 20:18 | disposition home or self-care (01) ==
LOC: LAB 20:17
PROVIDERS: PCP Family Medicine; Visit Provider Obstetrics & Gynecology
DX: Z34.93 Encounter for supervision of normal pregnancy, unspecified, third trimester (principal)

== ENCOUNTER 2025-01-14 22:21 | Observation (INO) | payer BC, SELFPAY ==
--- OUTSIDE RECORDS SUMMARY | 2024-12-16 08:30 | XMS_ITS | Encounter Summary ---
Author Organization [facility] Address [address] [place] [address] Care Team Providers Care Pre School Teacher Name Role Phone Raleigh Collazo MD Primary Care Provider [phone] Reason for Visit * ReasonCommentsRoutine Visit Encounter Details DateTypeDepartmentCare Team (Latest Contact Info)Rvtlydzmuum55/14/2025 9:30 AM EDTRoutine [facility] [address] [place] [address] Uriel Meade DO [address] [place] [address] Third trimester ([facility]); 31 weeks gestation of ([facility]); Encounter for in vitro fertilization; [...] friends or relatives?Never02/15/2024How often do you attend restoration or druze services?Never02/15/2024o you belong to any clubs or organizations such as restoration groups, unions, fraternal or athletic isauro ups, or school groups?No02/15/2024How often do you attend meetings of the clubs or organizations you belong to?Never02/15/2024re you , , , , never , or living with a partner?Anbjknw2702/15/2024 AUDIT-CAnswerDate RecordedQ1: How often do you have [...] housing, medical care, and heating?Not hard at all02/15/2024[facility] [place] of Occupational Health - Occupational Stress QuestionnaireAnswerDate [...] Recorded Sex Assigned at BirthNot on fileLegal TmcYpmlxf45/15/2023 7:05 PM EDTGender IdentityNot on fileSexual OrientationNot on filedocumented as of this encounter Last Filed Vital Signs Vital SignReadingTime TakenCommentsBlood Pafyeazb188/5212/16/2024 9:36 AM EDT Pulse--Temperature--Respiratory Rate--Oxygen Saturation--Inhaled Oxygen Concentration--Hpoksn08.1 kg (136 lb 12.8 oz)12/16/2024 9:36 AM [...] 1 disorder (HCC) 11/13/2022 Anxiety 12/21/2022 Asthma ([facility]) 12/21/2022 Attention deficit hyperactivity disorder (ADHD), combined type 12/21/2022 Proteinuria 08/03/2010 PTSD (post-traumatic stress disorder) 12/21/2022 Bipolar affective disorder, current episode hypomanic ([facility]) 12/21/2022 Well woman exam with routine gynecological exam 03/19/2023 Myalgia 02/18/2024 Fallopian tube disorder 03/13/2024 Anovulation 03/13/2024 Female infertility 03/13/2024 Resolved Ambulatory Problems Diagnosis Date Noted No Resolved Ambulatory Problems Past Medical History: Diagnosis Date Abnormal uterine bleeding (AUB) ADHD (attention deficit hyperactivity disorder) Amenorrhea Bilateral sacroiliitis Cervical cancer ([facility]) Chronic fatigue Chronic rhinitis Chronic vaginitis Depression with anxiety Endometriosis Gynecological disorder History of medical problems Infertility counseling Low libido Miscarriage ([facility]) S/P laparoscopy Sciatica, unspecified side [...] nursing note reviewed. Exam conducted with a mess attendant crew present. Vitals: Estimated body mass index is 22.08 kg/m?? as calculated from the following: Height as of 04/14/24: 5' 6 . Weight as of this encounter: 136 lb 12.8 oz. BP: 108/52 No LMP recorded. Patient is . ASSESSMENT & PLAN ICD-10-CM 1. Third trimester ([facility]) Z34.93 2. 31 weeks gestation of ([facility]) Z3A.31 POCT urinalysis dipstick manually [...] bipolar disorder Infertility counseling Low libido Miscarriage ([facility]) S/P laparoscopy Sciatica, unspecified side Seasonal allergic rhinitis, unspecified trigger Serous otitis media, unspecified chronicity, unspecified laterality URI (upper respiratory infection) 03/01/2019 [facility] [place] [3] Family History Problem Relation [...] 03/2020 lap, D and C - at [facility] DILATION AND CURETTAGE OF UTERUS 03/07/2013 ; 08/13/2015 DILATION AND CURETTAGE OF UTERUS 10/27/2022 EGD 11/2023 HYSTEROSCOPY 06/12/2016 Laproscopy/hysterscopy documented in this encounter Plan of Treatment DateTypeDepartmentCare Team (Latest Contact Info)Nkxuklmvdcu28/18/2025 10:00 AM ESTRoutine [facility] [address] [place] [phone] Uriel Meade DO [address] [place] [address] documented as of this encounter Procedures Procedure NamePriorityDate/TimeAssociated DiagnosisCommentsPOCT URINALYSIS TTJLWKDMFdwmiai83/14/2025 9:46 AM EDT 31 weeks gestation of ([facility]) documented in this encounter Results [...] Restrepo MD Authorizing ProviderResult TypeResult StatusUriel Meade [facility] OB [facility] PROCEDURES Final Result [...] this encounter Visit Diagnoses Diagnosis Third trimester ([facility]) state, incidental 31 weeks gestation of ([facility]) Encounter for in vitro fertilization Encounter for assisted reproductive fertility procedure cycle Hemorrhoids, unspecified hemorrhoid type Encounter for in vitro fertilization Encounter for assisted reproductive fertility procedure cycle documented in this encounter Care Teams Team MemberRelationshipSpecialtyStart DateEnd Date Raleigh Collazo MD [address] [place] [address] PCP - GeneralFamily Medicine08/28/22documented as of this encounter
--- OUTSIDE RECORDS SUMMARY | 2024-12-31 07:00 | XMS_ITS | Encounter Summary ---
Author Organization [facility] Address [address] [facility] [place] [address] Care Team Providers Care Relationship Mgr Name Role Phone Raleigh Collazo MD Primary Care Provider [phone] Encounter Details DateTypeDepartmentCare Team (Latest Contact Info)Rycvijbawij60/29/2025 8:00 AM EDTAncillary Procedure [facility] [address] [place] [address] [place] [address] Encounter for in vitro fertilization Social History Tobacco UseTypesPacks/DayYears UsedDateSmoking Tobacco: NeverAlcohol [...] friends or relatives?Never02/15/2024How often do you attend shinto or restorationism services?Never4Do you belong to any clubs or organizations such as shinto groups, unions, fraternal or athletic isauro ups, or school groups?No02/15/2024How often do you attend meetings of the clubs or organizations you belong to?Never4Are you , , , , never , or living with a partner?Ascsict8102/15/2024 AUDIT-CAnswerDate RecordedQ1: How often do you have [...] housing, medical care, and heating?Not hard at all02/15/2024[facility] [place] of Occupational Health - Occupational Stress QuestionnaireAnswerDate [...] were you homeless or living in a residential (including now)?No02/15/2024Estimated Date of DeliveryComments Yes5Based on Interfaced EDDSex and Gender InformationValueDate Recorded Sex Assigned at BirthNot on fileLegal MlsEhwppd41/15/2023 7:05 PM EDTGender IdentityNot on fileSexual OrientationNot on filedocumented as of this encounter Plan of Treatment DateTypeDepartmentCare Team (Latest Contact Info)Imfcukpegaw41/18/2025 10:00 AM ESTRoutine [facility] [address] [place] [address] Uriel Meade, DO [address] [place] [address] documented as of this encounter Procedures Procedure NamePriorityDate/TimeAssociated DiagnosisCommentsUS OB FOLLOW UP TRANSABDOMINAL KNFNJCEFLzfigju19/29/2025 8:47 AM EDT Encounter for in vitro fertilization documented in this encounter Results * US [...] Halina DOI OB US PROCEDURES Final Result documented in this encounter Visit Diagnoses Diagnosis Encounter for in vitro fertilization Encounter for assisted reproductive fertility procedure cycle documented in this encounter Care Teams Team MemberRelationshipSpecialtyStart DateEnd Date Raleigh Collazo MD [address] [place] [address] PCP - GeneralFamily Medicine08/28/22documented as of this encounter
--- OUTSIDE RECORDS SUMMARY | 2024-12-31 07:50 | XMS_ITS | Encounter Summary ---
Author Organization [facility] Address [address] [place] [address] Care Team Providers Care Chucking Lathe Operator Name Role Phone Raleigh Collazo MD Primary Care Provider [phone] Reason for Visit * ReasonCommentsRoutine Visit Encounter Details DateTypeDepartmentCare Team (Latest Contact Info)Kjoouoytxvw49/29/2025 8:50 AM EDTRoutine [facility] [address] [place] [address] Dary Wilhelm PA [address] [place], [place] [phone] Third trimester ([facility]); 33 weeks gestation of ([facility]) Social History Tobacco UseTypesPacks/DayYears UsedDateSmoking Tobacco: [...] friends or relatives?Never02/15/2024How often do you attend hindu or muslim services?Never02/15/2024o you belong to any clubs or organizations such as hindu groups, unions, fraternal or athletic isauro ups, or school groups?No02/15/2024How often do you attend meetings of the clubs or organizations you belong to?Never02/15/2024re you , , , , never , or living with a partner?Ynxzjks7202/15/2024 AUDIT-CAnswerDate RecordedQ1: How often do you have [...] housing, medical care, and heating?Not hard at all02/15/2024[facility] [place] of Occupational Health - Occupational Stress QuestionnaireAnswerDate [...] homeless or living in a penitentiary (including now)?No02/15/2024Estimated Date of DeliveryComments Yes02/12/2025ased on Interfaced EDDSex and Gender InformationValueDate Recorded Sex Assigned at BirthNot on fileLegal BhzAeikxr35/15/2023 7:05 PM EDTGender IdentityNot on fileSexual OrientationNot on filedocumented as of this encounter Last Filed Vital Signs Vital SignReadingTime TakenCommentsBlood Upscucjg123/6012/31/2024 8:51 AM EDT Pulse--Temperature--Respiratory Rate--Oxygen Saturation--Inhaled Oxygen Concentration--Lvplig38.2 kg (137 lb 1.9 oz)12/31/2024 8:51 AM [...] 12/21/2022 Bipolar affective disorder, current episode hypomanic ([facility]) 12/21/2022 Well woman exam with [...] medical problems Infertility counseling Low libido Miscarriage ([facility]) S/P laparoscopy Sciatica, unspecified side [...] bipolar disorder Infertility counseling Low libido Miscarriage ([facility]) S/P laparoscopy Sciatica, unspecified side Seasonal allergic rhinitis, unspecified trigger Serous otitis media, unspecified chronicity, unspecified laterality URI (upper respiratory infection) 03/01/2019 [facility] [place] Social History [...] lap, D and C - at [facility] DILATION AND CURETTAGE OF UTERUS [...] ASSESSMENT & PLAN ICD-10-CM 1. Third trimester ([facility]) Z34.93 2. 33 weeks gestation of ([facility]) Z3A.33 POCT urinalysis dipstick manually resulted [...] for routine OB appointment. Documented by Kelsie Crane CST on behalf of: PATRICIA Nava documented in this encounter Plan of Treatment DateTypeDepartmentCare Team (Latest Contact Info)Jrvdfuomgjm28/18/2025 10:00 AM ESTRoutine [facility] [address] [place] [address] Uriel Meade, [address] [place] [address] documented as of this encounter Procedures Procedure NamePriorityDate/TimeAssociated DiagnosisCommentsPOCT URINALYSIS IQIQMVAKAyrfmfo05/29/2025 8:57 AM EDT 33 weeks gestation of ([facility]) documented in this encounter Results * [...] 8:57 AM EDT Narrative Authorizing ProviderResult TypeResult StatusFall [facility] OF CARE TEST ENTER/EDIT ORDERABLESFinal Result documented in this encounter Visit Diagnoses Diagnosis Third trimester ([facility]) state, incidental 33 weeks gestation of ([facility]) documented in this encounter Care Teams Team MemberRelationshipSpecialtyStart DateEnd Date Raleigh Collazo MD [address] [place] [address] PCP - GeneralFamily Medicine08/28/22documented as of this encounter
--- OUTSIDE RECORDS SUMMARY | 2025-01-06 08:00 | XMS_ITS ---
Author Organization [facility] Address [address] [place] [address] Care Team Providers Care Water Resources Business Segment Leader Name Role Phone Karis Varela Primary Care Provider REASON FOR VISIT BPD, BIPOLAR, ANXIETY, ADHD Social History Sex Assigned At : Social History Observation Description Sex Assigned At Male Social History GeneralSocial InfoQuestionAnswerNotesDepression Screening (PHQ-9):Little interest or pleasure in doing thingsNearly every dayFeeling down, depressed, or hopelessNearly every dayTrouble falling or staying asleep, or sleeping too much Nearly every dayFeeling tired or having little energyNearly every dayPoor appetite or overeatingNearly every dayFeeling bad about yourself-or that you are a failure or have let yourself or your family downNearly every dayTrouble concentrating on things, such as reading the newspaper or watching television Nearly every dayMoving or speaking so slowly that other people could have noticed. Or the opposite being so fidgetyor restless that you have been moving around a lot more than usualNot at allThoughts that you would be better off , or of hurting yourself in some wayNot at allTotal Njral70Xdojjltzxlqqe Severe Depression Problems Problem Type SNOMED Code ICD Code Onset Dates Problem Status W/U Status Risk Notes Problem Mood disorder (92047691) Mood disorder (F 39) ActiveconfirmedProblemMixed anxiety and depressive disorder (314827186)Mixed anxiety and depressive disorder (F41.8)Activeconfirmed Encounters Encounter Location Date Provider Diagnosis [facility] [address] [place] [address] 01/06/2025 Karis Varela Mood disorder F39 and Mixed anxiety and depressive disorder F41.8 Assessments Encounter Date Diagnosis (ICD Code) Assessment Notes Treatment Notes Treatment Clinical Notes Section Notes 01/06/2025 Mood disorder (ICD-10 - F39) 01/06/2025Mixed anxiety and depressive disorder (ICD-10 - F41.8) Plan Of Treatment No Information History and Physical Notes * HPI (History of Present Illness) CategorySub-CategoryDetailNotesCategory NotesDepression ScreeningGAD-7 (2018 Edition)Feeling nervous, anxious, or on edge: Nearly every dayNot being able to stop or control worrying: Nearly every dayWorrying too much about different things: Nearly every dayTrouble relaxing: Nearly every dayBeing so restless that it is hard to sit still: Nearly every dayBecoming easily annoyed or irritable: Nearly every dayFeeling afraid as if something awful might happen: Several days Total THOMAS-7 Score: 19If you checked any problems, how difficult have they made it for you to do your work, take care of things at home, or get along with other people?: Extremely difficultInterpretation of Total: (15 and over) Severe Progress Notes * RHODA JORGENSEN:1995 ( 29 yo F)Acc No.[id number]:01/06/2025 Consult - Patient Patient: Callie INDU HOBSON :?Karis Torrez Dominga:1995???Age:29 Y???Sex: FemaleDate:01/06/2025Phone:[phone]:[id number] [facility] Subjective: * Chief Complaints: * 1 . BPD, BIPOLAR, ANXIETY, ADHD. * HPI: ???Depression Screening:?THOMAS-7 (2018 Edition)?Feeling nervous, anxious, or on edge?Nearly every day ?Not being able to stop or control worrying Nearly every day ?Worrying too much about different things?Nearly every day ?Trouble relaxing?Nearly every day ?Being so restless that it is hard to sit still?Nearly every day ?Becoming easily annoyed or irritable?Nearly every day ?Feeling afraid as if something awful might happen?Several days ?Total THOMAS-7 Score?19 ?If you checked any problems, how difficult have they made it for you to do your work, take care of things at home, or get along with other people?? Extremely difficult ?Interpretation of Total?(15 and over) Severe * Social History: ???General:?Depression Screening (PHQ-9)?Little interest or pleasure in doing things Nearly every day ?Feeling down, depressed, or hopeless?Nearly every day ?Trouble falling or staying asleep, or sleeping too much?Nearly every day ?Feeling tired or having little energy?Nearly every day ?Poor appetite or overeating?Nearly every day ?Feeling bad about yourself-or that you are a failure or have let yourself or your family down?Nearly every day ?Trouble concentrating on things, such as reading the newspaper or watching television?Nearly every day ?Moving or speaking so slowly that other people could have noticed. Or the opposite being so fidgety or restless that you have been moving around a lot more than usual?Not at all ?Thoughts that you would be better off , or of hurting yourself in some way?Not at all ?Total Score?21 ?Intepretation?Severe Depression ??? Assessment: * Assessment: 1.?Mood disorder - F39 (Primary)???2.?Mixed anxiety and depressive disorder - F41.8??? Plan: * Procedure Codes: 9 0791 PSYCH DIAGNOSTIC EVALUATION Billing Information: * Procedure Codes: 32261 PSYCH DIAGNOSTIC EVALUATION. Care Plan Details* Problem B H Diagnostic Assessment PresentPersons Present?PT Type of Session?Face to Face Start Time/End Time?12:58pm - 2:13pm ReferralRisk Assessment?PT denies all areas of risk. No contrary indications present. PT informed?my responsibilities as a therapist;PT's expectations in treatment;mutual development of treatment goals;limits of confidentiality;HIPAA privacy rights;consent to treat;releases of information;my responsibilities as a mandated traffic reporter Chief ComplaintDepression?adhedonia;crying spells;decreased sex drive;excessive guilt;fatigue;feelings of hopelessness/helplessness;feelings of worthlessness;low self-esteem;poor concentration;sad/depressed mood Kaylee/Hypomania?episodes of elevated mood (1 week or more);outbursts of energy;persistent irritability (1 week or more);racing thoughts/flight of ideas Comments :Pt states she has been in a Manic cycle. Anxiety?chest pain;decreased appetite;difficulty controlling worry;elevated heart rate;excessive worry;panic attacks;restlessness Panic Attacks?chest pain;fear of dying;fear of going crazy;heart palpitations;lightheadedness;nausea;shortness of breath;shaking;no agoraphobia PTSD?avoidance;derealization;depersonalization;dissociation;experienced a traumatic event;flashbacks;hypervigilance;intrusive thoughts;irritability/anger outbursts;increased startle response;nightmares/nightterrors;negative cognitions about others/world;negative cognitions about self Social Phobia?anxious to others not well-known;avoidance of social situations;crying spells;fear of scrutiny by others;feels humiliated;rejected by others;unrealistic fear of embarrassing self Obsessive-Compulsive?obsessive thoughts;time consumingComments : I feel like I am obsessed with my and always monitor his messages. Psychosis?auditory hallucinations;delusions;paranoia Attention Deficit Hyperactivity Disorder?difficulty following instructions;difficulty organizing tasks;difficulty staying seated;difficulty sustaining attention;difficulty waiting their turn;fidgets;forgetful;hyperactive;interrupts others; on the go /driven by a motor;restlessness;talks excessively Conduct?Comments :Denies Eating Disorder?food restrictionComments :Diagnosed with ARFID Behavioral ObservationsOrientation?oriented x 4 Mood?euthymic Affect?congruent Insight/Judgment?fair Thought Process?flight of ideas Speech?normal BackgroundAge?29 years old Ethnicity? Marital Status? 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 Mom when Pt was 17. Family Psychiatric History?history of MH diagnoses/symptoms;family history of AoD impairment/diagnosesComments :Dad- alcoholic, anxiety; Mom- anxiety, suspects Bipolar Disorder, PTSD Trauma?emotional abuse;verbal abuse;witnessed domestic violence;caregiver with drinking, drugs, and/or severe mental health;sudden, traumatic of family member Medical HistoryHistory of Outpatient Treatment?Yes History of Psychiatric Hospitalizations?No Medical Conditions/History?Currently and having an in duction January 22. Medications?Seraquil 50 mg, heartburn medication, vitamin, olanzapine Medical Concerns?medical concerns;connected with treatment Substance Use?History of UseComments :Marijuana occasionally before Social HistorySocial Supports/Significant Relationships? (Joel), Friend (Katharina) Spiritual/Cultural Factors?No religionComments : I don't believe in God. Goals and StrengthsPT Expectations for Treatment?gain new skills to cope with MH symptoms;appears engaged in treatment goals to improve MH stability;open to learning new skills Strengths?resilient;straightforwardComments :Strong Weaknesses?impulsive;isolatesComments :emotional Additional InformationPlan/Recommendations?outpatient counseling;still assessing Impressions/RecommendationsTreatment Objectives?identify 3 + ways to alleviate mood symptoms;identify 5 + healthy coping skills;identify 2 + grounding techniques;identify 3 + mindfulness skills;identify 3 + emotion regulation skills Impressions/RecommendationsDiagnostic Impressions/DSM V Diagnosis?F39 Mood Disorder; F41.8 Mixed Anxiety and Depressive Disorder; PHQ-9: 21; THOMAS-7: 19 Comments :Pt is a 29 year old female residing with her , daughter, and is due at the end of January. Pt states that she stopped taking medications for Bipolar Disorder, Borderline Personality Disorder, ADHD, and Anxiety while going through fertility treatments. She states she restarted some medications after becoming , but has been in a manic episode for a while. Pt complains of symptoms of restlessness, low self-esteem, hypervigilance, auditory hallucinations, and isolating. Pt reports wanting to get more stabilized since beginning her medications again. Per Pt'sreported symptoms and DSM-5-TR, Pt meets the criteria for F39 Mood Disorder and F41.8 Mixed Anxietyand Depressive Disorder. DENSITOMETER READER will continue to assess Pt needs, build rapport, and consider referralto BEEF TRIMMER if Pt needs an evaluation. * ign off status: Completed true * Provider: Michael Varela Date: 03/08/2024 Generated for Printing/Faxing/eTransmitting on:?01/14/2025 10:28 PM EST
--- OUTSIDE RECORDS SUMMARY | 2025-01-13 09:30 | XMS_ITS | Encounter Summary ---
Author Organization [facility] Address [address] [place] [address] Care Team Providers Care Vamp Wetter Name Role Phone Raleigh Collazo MD Primary Care Provider Reason for Visit * ReasonCommentsRoutine Visit Encounter Details DateTypeDepartmentCare Team (Latest Contact Info)Hfhvmtqtzgt76/11/2025 9:30 AM ESTRoutine [facility] [address] [place] [phone] Uriel Meade DO [address] [place] [address] 35 weeks gestation of ([facility]); Third trimester ([facility]); Encounter for in vitro fertilization; Hemorrhoids, unspecified hemorrhoid type; Bipolar 1 disorder ([facility]); PTSD (post-traumatic stress disorder) Social History Tobacco [...] friends or relatives?Never02/15/2024How often do you attend mosque or baptist services?Never02/15/2024o you belong to any clubs or organizations such as mosque groups, unions, fraternal or athletic isauro ups, or school groups?No02/15/2024How often do you attend meetings of the clubs or organizations you belong to?Never02/15/2024re you , , , , never , or living with a partner?Mppofcn1802/15/2024 AUDIT-CAnswerDate RecordedQ1: How often do you have [...] housing, medical care, and heating?Not hard at all02/15/2024[facility] [place] of Occupational Health - Occupational Stress QuestionnaireAnswerDate [...] Recorded Sex Assigned at BirthNot on fileLegal KjvNxxlor33/15/2023 7:05 PM EDTGender IdentityNot on fileSexual OrientationNot on filedocumented as of this encounter Last Filed Vital Signs Vital SignReadingTime TakenCommentsBlood Qqnghoht131/5801/13/2025 9:29 AM EST Pulse--Temperature--Respiratory Rate--Oxygen Saturation--Inhaled Oxygen Concentration--Ahawol81 kg (139 lb)01/13/2025 9:29 AM ESTHeight--Body Mass Index 22.4402 2:48 PM ESTdocumented in this encounter Progress Notes * Sharijo Gomez, DISTRICT CLAIMS MANAGER - 01/13/2025 9:30 AM EST Reason for [...] Problems Diagnosis Date Noted Bipolar 1 disorder ([facility]) 11/13/2022 Anxiety 12/21/2022 Asthma ([facility]) 12/21/2022 Attention deficit hyperactivity disorder (ADHD), combined type 12/21/2022 Proteinuria 08/03/2010 PTSD (post-traumatic stress disorder) 12/21/2022 Bipolar affective disorder, current episode hypomanic ([facility]) 12/21/2022 Well woman exam with routine gynecological exam 03/19/2023 Myalgia 02/18/2024 Fallopian tube disorder 03/13/2024 Anovulation 03/13/2024 Female infertility 03/13/2024 Resolved Ambulatory Problems Diagnosis Date Noted No Resolved Ambulatory Problems Past Medical History: Diagnosis Date Abnormal uterine bleeding (AUB) ADHD (attention deficit hyperactivity disorder) Amenorrhea Bilateral sacroiliitis Cervical cancer ([facility]) Chronic fatigue Chronic rhinitis Chronic vaginitis Depression with anxiety Endometriosis Gynecological disorder History of medical problems Infertility counseling Low libido Miscarriage ([facility]) S/P laparoscopy Sciatica, unspecified side Seasonal allergic [...] bipolar disorder Infertility counseling Low libido Miscarriage ([facility]) S/P laparoscopy Sciatica, unspecified side Seasonal allergic rhinitis, unspecified trigger Serous otitis media, unspecified chronicity, unspecified laterality URI (upper respiratory infection) 03/01/2019 [facility] [place] Social History [...] 03/2020 lap, D and C - at [facility] DILATION AND CURETTAGE OF UTERUS 03/07/2013 ; [...] nursing note reviewed. Exam conducted with a road hogger operator present. Vitals: Estimated body mass index is 22.44 kg/m?? as calculated from the following: Height as of 04/14/24: 5' 6 . Weight as of this encounter: 139 lb. BP: 110/58 No LMP recorded. Patient is . Assessment/Plan ICD-10-CM 1. 35 weeks gestation of ([facility]) Z3A.35 POCT urinalysis dipstick manually resulted 2. Third trimester ([facility]) Z34.93 POCT urinalysis dipstick manually resulted CULTURE, GROUP B STREP WITH SUSCEPTIBLITY CULTURE, GROUP B STREP WITH SUSCEPTIBLITY 3. Encounter for in vitro fertilization Z31.83 4. Hemorrhoids, unspecified hemorrhoid type K64.9 5. Bipolar 1 disorder ([facility]) F31.9 6. PTSD (post-traumatic stress disorder) F43.10 [...] Plan of Treatment DateTypeDepartmentCare Team (Latest Contact Info)Qfuextkugnv27/18/2025 10:00 AM ESTRoutine [facility] [address] [place] [phone] Uriel Meade DO [address] [place] [address] NameTypePriorityAssociated DiagnosesOrder ScheduleCULTURE, GROUP B STREP WITH SUSCEPTIBLITYLabRoutine Third trimester ([facility]) Expected: 01/13/2025, Expires: 01/13/2026documented as of this encounter Procedures Procedure NamePriorityDate/TimeAssociated DiagnosisCommentsPOCT URINALYSIS CEZCUEQJRicaumy82/11/2025 9:36 AM EST 35 weeks gestation of ([facility]) Third trimester ([facility]) documented in this encounter Results * [...] / LateralityCollection Method / Volume Collection TimeReceived LdlkCnqcj48/11/2025 9:36 AM EST Narrative Authorizing ProviderResult TypeResult StatusCorey Halina DOPOINT OF CARE TEST ENTER/EDIT ORDERABLESFinal Result documented in this encounter Visit Diagnoses Diagnosis 35 weeks gestation of ([facility]) Third trimester ([facility]) state, incidental Encounter for in vitro fertilization Encounter for assisted reproductive fertility procedure cycle Hemorrhoids, unspecified hemorrhoid type Bipolar 1 disorder ([facility]) PTSD (post-traumatic stress disorder) Posttraumatic stress disorder documented in this encounter Care Teams Team MemberRelationshipSpecialtyStart DateEnd Date Raleigh Collazo MD [address] [place] [address] PCP - GeneralFamily Medicine08/28/22documented as of this encounter
--- OUTSIDE RECORDS SUMMARY | 2025-01-14 22:28 | XMS_ITS | Clinical Summary ---
Author Organization [facility] Address [address] [place] [address] Phone Care Team Providers Care School Cafeteria Cook Head Name Role Phone Joe Zuleta DO Primary [...] Problems ProblemNoted DateDiagnosed Date14 weeks gestation of rzduzsdwp31/13/2025 Estimated Date of EpshzfouFuqtmqhwGvy65/11/2025Date entered prior to episode creation Social History [...] needed for daily living?No08/15/2024 Estimated Date of LxovkhweLykhidixVhv17/11/2025Date entered prior to episode creationSex and Gender InformationValueDate RecordedSex Assigned at OyfbjPohyrg60/13/2025 2:14 AM EDTLegal OfaCobeiu88/11/2025 9:17 AM EDTGender RiivkwixRafpqd25/13/2025 2:14 AM EDTSexual OrientationNot on file Last Filed Vital Signs Vital SignReadingTime TakenCommentsBlood Qpnyudju745/8208/15/2024 3:53 PM EDT Yybbr659608/15/2024 3:53 PM QLRKbtpojfxubz36.9 ??C (98.4 ??F)08/15/2024 3:53 PM EDTRespiratory Qpnr792508/15/2024 3:53 PM EDTOxygen Alopsexcct70%08/15/2024 3:53 PM EDTInhaled Oxygen Concentration--Jmzxik28.6 kg (116 lb)08/14/2024 10:08 PM WTNHiyktn027.6 cm (5' 6 )08/14/2024 10:08 PM EDTBody Mass Index18.72008/14/2024 10:08 PM EDT Plan of Treatment Health MaintenanceDue DateLast DoneCommentsHIV Prwzpllut52/27/1995Lipid Panel 1994IPV Vaccines (2 of 3 - 4-dose series)Hepatitis C Uclzznvpa36/27/2013Pneumococcal Vaccine: Pediatrics and At-Risk Adult Patients (1 of 2 - PCV)2013Hepatitis A Vaccines (2 of 2 - 2-dose series)05/12/2014 11/12/2013, 04/20/2010Hepatitis B Vaccines (3 of 3 - 19+ 3-dose series) , 03/30/2014, 11/12/2013Cervical Cancer Khffbncts92/27/2016 HPV/Xfbksf8208/30/2015Pap Smear08/30/2015DTaP/Tdap/Td Vaccines (3 - Td or Tdap) , 06/08/1999Yearly Adult Wwfnsgtb13/ Influenza Vaccine (#1)/05/2015, 12/31/2012COVID-19 Vaccine ( - season)2024RSV High Risk: (Elderly (60+) or Population) (1 - Risk 1-dose series)12/18/2024Zoster Vaccines (1 of 2)2044 04/20/2010MMR NikenlnzNcpsqtuvk85/05/2000HPV SzultrgrAqxllkbdl52/11/2007, 08/13/2006, 06/13/2006Meningococcal VaccineAged Out05/29/2008No longer eligible based on patient's age to complete this topicHIB VaccinesAged OutNo longer eligible based on patient's age to complete this topicRotavirus VaccinesAged Out No longer eligible based on patient's age to complete this topic Insurance Advance Directives For more information, please contact: [phone] (Available ) * Full Code (Latest Code Status on File) Date ActivatedDate InactivatedComments08/15/2024 3:05 AMQuestionAnswerComments Plan of Care:* Code Status Discussion Not Completed Decision Maker:* Provider Rationale:* Patient condition does not warrant discussion Care Teams Team MemberRelationshipSpecialtyStart DateEnd Date Joe Zuleta DO [address] [place] [address] [facility]08/13/24
--- OUTSIDE RECORDS SUMMARY | 2025-01-14 22:28 | XMS_ITS | Clinical Summary ---
Author Organization [facility] Address [address], [address] [place] [address] Care Team Providers Care Network Design Architect Name Role Phone Joe Zuleta DO Primary Care Provider [phone] Allergies Active AllergyReactionsCriticalityNoted DateCommentsDust Mite Ouidypv0807/07/2024 Medications MedicationSigDispense QuantityRefillsLast FilledStart DateEnd DateStatus Vit-Fe [...] by mouth 4 times dailyDiscontinued(LIST CLEANUP) Pancrelipase, Klj-Khmc-Dksg, (CREON) 9107-5613 units CPEP Indications:Digestive symptomsTake 1 capsule by [...] (TYLENOL) [address] 1 suppository ntdxdnrt08Discontinued(LIST CLEANUP) capsaicin (ZOSTRIX) 0.025 % cream APPLY TOPICALLY THREE TIMES DAILY.Discontinued(LIST CLEANUP) hydrOXYzine HCl (ATARAX) 25 MG tablet Take 1 tablet by mouth every 8 hours as ilhbba04Discontinued (LIST CLEANUP) Active Problems ProblemNoted DateDiagnosed Date14 weeks gestation of gbkwmrqyz49/13/2025PTSD (post-traumatic stress disorder)12/21/2022ipolar affective disorder, current episode bzfjlhada37/19/2023ttention deficit hyperactivity disorder (ADHD), combined type3CommentsYes Encounters DateTypeDepartmentCare PejbRlpvapqcldg53/21/2025 1:00 PM EDTOffice Visit [facility] [address] [place] [address] Joe Zuleta DO Neck pain (Primary Dx); Chronic bilateral thoracic back pain; Dermoid cyst of skin of nose; Benign skin lesion of lgstkaqq14/26/2025Orders Only [address] [id number] Provider, MD Sarbjit from Last 3 Months Immunizations ImmunizationAdministration DatesNext DueDTaP stuebdg0806/08/1999HPV Quadrivalent (Gardasil)12/13/2006,08/13/2006,06/13/2006Hep A, HAVRIX, VAQTA, (age 12m-18y), IM, 0.5mL11/12/2013,04/20/2010Hep B, ENGERIX-B, RECOMBIVAX-HB, (age - 19y), IM, 0.5mL11/12/2013Influenza Virus Aqxdskj2912/06/2015Influenza Whole 12/31/2012Influenza, FLUARIX, FLULAVAL, FLUZONE (age 6 [...] (1 standard drink = 0.6 oz pure alcohol)[facility] UtilitiesAnswerDate RecordedIn the past 12 months has the [employer], gas, oil, or water [employer] threatened to shut off services in your home?No07/07/2024PHQ-2AnswerDate RecordedPHQ-9 Total Cfcem908Exercise Vital SignAnswerDate RecordedOn average, how many days [...] homeless or living in a fci (including now)?No07/07/2024 AUDIT-CAnswerDate RecordedQ1: How often do [...] 07/07/2024CommentsYesSex and Gender InformationValueDate RecordedSex Assigned at PhwojGscehz53/20/2025 7:51 AM EDTLegal XxnJbsnld08/22/2025 2:08 PM EDTGender IylvpzzaIrgytq81/20/2025 7:51 AM EDTSexual OrientationNot on file Last Filed Vital Signs Vital SignReadingTime TakenCommentsBlood Rtqhenwc562/6212/23/2024 1:00 PM EDT Msbaa719312/23/2024 1:00 PM FNMByatmzdijpm08.2 ??C (97.2 ??F)12/23/2024 1:00 PM EDTRespiratory Rate--Oxygen Zkscllrjyb24%12/23/2024 1:00 PM EDTInhaled Oxygen Concentration--Lqfnpf86.7 kg (136 lb)12/23/2024 1:00 PM ZPJUgqznn231.6 cm (5' 6 )12/23/2024 1:00 PM EDTBody Mass Index21.9512/23/2024 1:00 PM EDT Plan of Treatment Health MaintenanceDue DateLast DoneCommentsPolio vaccine (2 of 3 - 4-dose series)/07/1999HIV oumxgy6508/29/2009Varicella vaccine (2 of 2 - 13+ 2-dose series)Hepatitis C pspndq9908/29/2012Hepatitis B vaccine (2 of 3 - 19+ 3-dose series)Hepatitis A vaccine (2 of 2 - 2-dose series), 04/20/2010Pap smear06/ DTaP/Tdap/Td vaccine (3 - Td or Tdap), 06/08/1999Cervical cancer biomcv4708/29/2024HPV (without or with Pap)2024Flu vaccine (#1) 510/05/2015, 12/06/2015, 12/31/2012COVID-19 Vaccine ( season)2024Depression Rdykkfaroj80/05/065984/07/2024, 07/07/2024 Respiratory Syncytial Virus (RSV) or age 60 yrs+ (1 - 1-dose 75+ series)2069HPV tarcfpeUknmrodap93/11/2007, 08/13/2006, 06/13/2006 Meningococcal (ACWY) vaccineAged Out05/29/2008No longer eligible based on patient's age to complete this topicDepression LpxumuGghkickktbvl74/05/2025, 07/07/2024Hib vaccineAged OutNo longer eligible based on patient's age to complete this topicMeningococcal B vaccineAged OutNo longer eligible based on patient's age to complete this topicPneumococcal 0-49 years VaccineAged OutNo longer eligible based on patient's age to complete this topic Procedures Procedure NamePriorityDate/TimeAssociated DiagnosisCommentsUS BIOPHYSICAL PROFILE WO NON STRESS BJSPXXYPfpqfdc60/25/2025 8:01 AM EDTfrom Last 3 Months Results * US BIOPHYSICAL PROFILE WO NON STRESS TESTING (11/27/2024 8:01 AM EDT) Anatomical RegionLateralityModalityPelvisOther Narrative Authorizing ProviderResult TypeResult StatusHistorical Provider MDIMG US ORDERABLESFinal Result from Last 3 Months Insurance Care Teams Team MemberRelationshipSpecialtyStart DateEnd Date Joe Zuleta DO [address] [place], [place] [id number] [facility]07/16/24
--- OUTSIDE RECORDS SUMMARY | 2025-01-14 22:28 | XMS_ITS | Encounter Summary ---
Author Organization [facility] Address [address] [address] Care Team Providers Care Shuttlecock Assembler Name Role Phone Raleigh Collazo MD Primary Care Provider [phone] Encounter Details DateTypeDepartmentCare Team (Latest Contact Info)Bdgxtcsvmwr47/11/2025bstract [facility] [address] [place] [address] Uriel Meade DO [address] [place], [facility] Social History Tobacco UseTypesPacks/DayYears UsedDateSmoking Tobacco: NeverAlcohol [...] friends or relatives?Never02/15/2024How often do you attend judaism or congregation services?Never4Do you belong to any clubs or organizations such as judaism groups, unions, fraternal or athletic isauro ups, or school groups?No02/15/2024How often do you attend meetings of the clubs or organizations you belong to?Never4Are you , , , , never , or living with a partner?Dqcsqjc1802/15/2024 AUDIT-CAnswerDate RecordedQ1: How often do you have [...] housing, medical care, and heating?Not hard at all02/15/2024[facility] [place] of Occupational Health - Occupational Stress QuestionnaireAnswerDate [...] you homeless or living in a senior living (including now)?No4Estimated Date of DeliveryComments Yes5Based on Interfaced EDDSex and Gender InformationValueDate Recorded Sex Assigned at BirthNot on fileLegal IfeRybrfn05/15/2023 7:05 PM EDTGender IdentityNot on fileSexual OrientationNot on filedocumented as of this encounter Plan of Treatment DateTypeDepartmentCare Team (Latest Contact Info)Kouwlwuakly61/18/2025 10:00 AM ESTRoutine [facility] [address] [place] [address] Uriel Meade DO [address] [place], [place] [phone] documented as of this encounter Visit Diagnoses Not on filedocumented in this encounter Care Teams Team MemberRelationshipSpecialtyStart DateEnd Date Raleigh Collazo MD [address] [place] [address] PCP - GeneralFamily Medicine08/28/22documented as of this encounter
--- OUTSIDE RECORDS SUMMARY | 2025-01-14 22:29 | XMS_ITS | Encounter Summary ---
Author Organization [facility] Address [address] [place] [address] Care Team Providers Care Jewelry Bench Worker Name Role Phone Raleigh Collazo MD Primary Care Provider [phone] Encounter Details DateTypeDepartmentCare Team (Latest Contact Info)Aaaypljqlde57/06/2025Telephone [facility] [address] [place] [address] Uriel Meade DO [address] [place], [facility]11 Social History Tobacco UseTypesPacks/DayYears UsedDateSmoking Tobacco: NeverAlcohol [...] friends or relatives?Never02/15/2024How often do you attend buddhism or lutheran services?Never4Do you belong to any clubs or organizations such as buddhism groups, unions, fraternal or athletic isauro ups, or school groups?No02/15/2024How often do you attend meetings of the clubs or organizations you belong to?Never4Are you , , , , never , or living with a partner?Mazmkbx2702/15/2024 AUDIT-CAnswerDate RecordedQ1: How often do you have [...] care, and heating?Not hard at all02/15/2024Finen[facility] [place] of Occupational Health - Occupational Stress QuestionnaireAnswerDate [...] were you homeless or living in a half-way (including now)?No4Estimated Date of DeliveryComments Yes5Based on Interfaced EDDSex and Gender InformationValueDate Recorded Sex Assigned at BirthNot on fileLegal GvjPhrksg18/15/2023 7:05 PM EDTGender IdentityNot on fileSexual OrientationNot on filedocumented as of this encounter Miscellaneous Notes * Telephone Encounter - Abbey Ragsdale LPN - 01/08/2025 9:18 AM EST FYI: Yaima called from [facility] and wanted to update that patient came in for her NST/BPP and this ws reactive and 10/10. documented in this encounter Plan of Treatment DateTypeDepartmentCare Team (Latest Contact Info)Cysknjoomuc93/18/2025 10:00 AM ESTRoutine [facility] [address] [place] [address] Uriel Meade DO [address] [place] [address] documented as of this encounter Visit Diagnoses Not on filedocumented in this encounter Care Teams Team MemberRelationshipSpecialtyStart DateEnd Date Raleigh Collazo MD [address] [place] [address] PCP - GeneralFamily Medicine08/28/22documented as of this encounter
--- OUTSIDE RECORDS SUMMARY | 2025-01-14 22:29 | XMS_ITS | Clinical Summary ---
Author Organization [facility] Healthcare Address [address] [place] [address] Care Team Providers Care Program Attendant Name Role Phone Raleigh Collazo MD Primary Care Provider [phone] Allergies Active AllergyReactionsCriticalityNoted DateCommentsDust Mite ExtractUnknown 08/28/2022 Medications MedicationSigDispense QuantityRefillsLast FilledStart DateEnd DateStatus budesonide-formoterol (Breyna) 80-4.5 MCG/ACT inhaler Indications:Mild intermittent asthma without complication (HCC)Inhale 2 puffs Daily Rinse mouth with water after use to reduce aftertaste and incidence of candidiasis. Do not swallow. 10.2 g 4Active fish oil concentrate ([place]-3) 1000 MG capsule Indications:Female infertility,Fallopian tube disorder,AnovulationTake [...] 5Active Active Problems ProblemNoted DateDiagnosed DateFallopian tube dfbszfne65/09/2025novulation 03/13/2024Female plwmxyengta50/09/2313Cpsmgcs58/16/2024 Assessment & Plan (02/18/2024 3:33 PM EST): Dr Collazo put in lab orders and patient will go to [facility] Will call with results Well woman exam with routine gynecological exam03/19/20230029Ocyiwip10/19/2023sthma 12/21/2022ttention deficit hyperactivity disorder (ADHD), combined type 12/21/2022TSD (post-traumatic stress disorder)12/21/2022ipolar affective disorder, current episode tecgbpubq14/19/2023ipolar 1 /11/2023 Xayhsdmfzwv69/01/2011Estimated Date of TsgxbiuxHrzcekzoIth23/11/2025 Based on Interfaced RENO Encounters DateTypeDepartmentCare PwxxQyxcycvzvbo55/11/2025 9:30 AM ESTRoutine [facility] [address] [place] [address] Uriel Meade, 35 weeks gestation of ([facility]); Third trimester ([facility]); Encounter for in vitro fertilization; Hemorrhoids, unspecified hemorrhoid type; Bipolar 1 disorder ([facility]); PTSD (post-traumatic stress disorder)01/13/2025bstract [facility] [address] [place] [address] Uriel Meade DO 01/13/2025amboo flowsheet [facility] [address] [place] [address] Uriel Meade, DO 01/08/2025Telephone [facility] [address] [facility] [place] [address] Uriel Meade, DO 01/01/2025Telephone [facility] [address] [place] [address] Belinda Noble MA 12/31/2024 8:50 AM EDTRoutine [facility] [address] [place] [address] Dary Wilhelm PA Third trimester ([facility]); 33 weeks gestation of ([facility])12/31/2024 8:00 AM EDTAncillary Procedure [facility] [address] [place] [address] Encounter for in vitro wfgansurtldbm96/24/2025bstract [facility] [address] [place] [address] Dayana Griffith [place] 12/25/2024Telephone [facility] [address] [place] [address] Dayana Griffith [place] 12/22/2024bstract [facility] [address] [facility] [facility] [place] [address] Dayana Griffith [place] 12/22/2024bstract [facility] [address] [facility] [address] [facility] [place] [address] Dayana Griffith [place] 12/18/2024Telephone [facility] [address] [facility] [address] [place] [address] Uriel Meade, DO 12/16/2024 9:30 AM EDTRoutine [facility] [address] [address] [facility] [place] [address] Uriel Meade, DO Third trimester ([facility]); 31 weeks gestation of ([facility]); Encounter for in vitro fertilization; Hemorrhoids, unspecified hemorrhoid type12/16/2024amb flowsheet [facility] [address] [facility] [place] [address] [phone] Uriel Meade, DO 12/11/2024bstract [facility] [address] [facility] [facility] [place] [address] Uriel Meade, DO 12/04/2024bstract [facility] [address] [facility] [address] [place] [address] Uriel Meade, DO 12/02/2024 8:50 AM EDTRoutine [facility] [address] [facility] [address] [place] [phone] Dolores Caldwell, RACHAEL Anemia, unspecified type (Primary Dx); Third trimester ([facility]); 29 weeks gestation of ([facility]); Bipolar 1 disorder ([facility]); PTSD (post-traumatic stress disorder)12/02/2024[facility] flowsheet [facility] [address] [facility] [place] [phone] Dolores Caldwell, RACHAEL 11/27/2024bstract [facility] [address] [facility] [place] [address] Uriel Meade, DO 11/24/2024bstract [facility] [address] [facility] [place] [address] Uriel Meade, DO 11/24/2024bstract [facility] [address] [facility] [address] [place] [address] Uriel Meade, DO 11/18/2024 8:30 AM EDTRoutine [facility] [address] [place] [address] Uriel Meade DO 27 weeks gestation of ([facility]); Second trimester ([facility]); Hyperemesis of ([facility]); resulting from in vitro fertilization in second trimester ([facility]); Breech presentation, single or unspecified fetus ([facility])11/18/2024Telephone [facility] [address] [place] [phone] Belinda Noble MA 11/18/2024amboo flowsheet [facility] [address] [facility] [address] [place] [address] Uriel Meade DO 11/07/2024bstract [facility] [address] [facility] [address] [place] [address] Dayana Griffith MA 11/05/2024Refill [facility] [address] [place] [address] Uriel Meade DO Other acute sinusitis, recurrence not /19/2025 8:50 AM EDTRoutine [facility] [address] [place] [address] Uriel Meade DO 23 weeks gestation of ([facility]); Second trimester ([facility]); Hyperemesis of ([facility]); resulting from in vitro fertilization in second trimester ([facility]); Diabetes mellitus kkryjgwda31/19/2025amboo flowsheet [facility] [address] [place] [address] Uriel Meade DO from Last 3 Months Immunizations ImmunizationAdministration DatesNext DueDTaP, Knagivkmizr61/05/2000HPV, Nqwqxikbkckj88/11/2007,08/13/2006,06/13/2006Hep A, ped/adol, 2 dose11/12/2013, 04/20/2010Hep B, Adolescent or Xqmkejksc17/10/2014Hep B, adult05/18/2014, 03/30/2014IPV06/08/1999Influenza Whole12/31/2012Influenza, injectable, quadrivalent, preservative free12/06/2015MMR06/08/1999Meningococcal MCV4P 05/29/2008Tdap05/29/20083913Kkrilivul27/16/2011 Family History Medical HistoryRelationNameCommentsNo Known ProblemsDaughterArthritisFatherLung cancerFatherHeart diseaseMaternal GrandfatherHypertensionMaternal Grandfather StrokeMaternal GrandfatherCancerMaternal GrandmotherHypertensionMaternal GrandmotherADD / ADHDMotherHypothyroidismMotherLung cancerMotherCervical cancer Paternal GrandmotherClotting disorderPaternal GrandmotherHypertensionPaternal GrandmotherADD / ADHDSiblingRelationNameStatusCommentsDaughterAliveFatherAlive Maternal GrandfatherAliveMaternal GrandmotherAliveMotherDeceasedPaternal GrandmotherAliveSiblingAlive Social History Tobacco UseTypesPacks/DayYears UsedDateSmoking Tobacco: Never Tobacco Cessation:Counseling Given: Not Answered Alcohol UseStandard Drinks/WeekCommentsNever0 (1 standard drink = 0.6 oz pure alcohol)caffeine: aiwlM4884 Health LiteracyAnswerDate RecordedHow often do you need [...] or relatives?Never 02/15/2024How often do you attend buddhism or caodaism services?Never02/15/2024o you belong to any clubs or organizations such as buddhism groups, unions, fraternal or athletic groups, or school groups?No12/13/2024How often do you attend meetings of the clubs or organizations you belong to?Never02/15/2024re you , , , , never , or living with a partner?Zjitpsa5002/15/2024UDIT-CAnswerDate RecordedQ1: How often do you have a [...] housing, medical care, and heating?Not hard at all02/15/2024[facility] [place] of Occupational Health - Occupational Stress QuestionnaireAnswerDate [...] or living in a group home (including now)?No4Estimated Date of Delivery JxvmwqzuTug78/11/2025Based on Interfaced EDDSex and Gender InformationValueDate RecordedSex Assigned at BirthNot on fileLegal NkoFsnlyy87/15/2023 7:05 PM EDT Gender IdentityNot on fileSexual OrientationNot on file Last Filed Vital Signs Vital SignReadingTime TakenCommentsBlood Myszswas301/5801/13/2025 9:29 AM EST Dtgir734204/14/2024 2:48 PM OXCDorywkcjnsg58.9 ??C (98.4 ??F)04/14/2024 2:48 PM ESTRespiratory Rate--Oxygen Nhfhnavtmy78%04/14/2024 2:48 PM ESTInhaled Oxygen Concentration--Xlxkep12 kg (139 lb)01/13/2025 9:29 AM NWICbtdhs838.6 cm (5' 6 ) 04/14/2024 2:48 PM ESTBody Mass Index22.44004/14/2024 2:48 PM EST Plan of Treatment DateTypeDepartmentCare Team (Latest Contact Info)Geqeicrrejr00/18/2025 10:00 AM ESTRoutine [facility] [address] [facility] [place] [address] Uriel Meade DO [address] [place] [place], [place] [phone] Health MaintenanceDue DateLast DoneCommentsPneumococcal Vaccine: Pediatrics (0 to 5 Years) and At-Risk Patients (6 to 64 Years) (1 of 2 - PCV)2013 HPV/Sgpdmp495COVID-19 Vaccine (1 - season)2024Influenza Vaccine (#1)/05/2015, 12/31/2012Cervical Cancer Urcruvkuf75/24/2028 Pap Smear, 08/27/2023, 03/19/2023, Additional history exists Procedures Procedure NamePriorityDate/TimeAssociated DiagnosisCommentsPOCT URINALYSIS IKOBFKYXAicmrmr19/11/2025 9:36 AM EST 35 weeks gestation of ([facility]) Third trimester ([facility]) POCT URINALYSIS XWGDOVHSPvfwusf44/29/2025 8:57 AM EDT 33 weeks gestation of ([facility]) US OB FOLLOW UP TRANSABDOMINAL AUFDECDIGhovpsz18/29/2025 8:47 AM EDT Encounter for in vitro fertilization POCT URINALYSIS LVSQLRVBErzjzel49/14/2025 9:46 AM EDT 31 weeks gestation of ([facility]) POCT URINALYSIS DYJIHXXCIpaazwp41/30/2025 9:04 AM EDT Third trimester ([facility]) GLUCOSE TOLERANCE, 1 JWUUAbjxdfu07/16/2025 4:18 PM EDT Diabetes mellitus screening RQROdnspsb50/16/2025 4:18 PM EDT Diabetes mellitus screening POCT URINALYSIS UTLXCVOAZliwotb89/16/2025 8:46 AM EDT 27 weeks gestation of ([facility]) Second trimester ([facility]) POCT URINALYSIS QLPNGQSVJjtbnay25/19/2025 9:04 AM EDT 23 weeks gestation of ([facility]) Second trimester ([facility]) PAP ZTHAMAaznjqk94/24/2025 12:00 AM EDTfrom Last 3 Months or [...] to Health Maintenance Insurance Care Teams Team MemberRelationsGranada Hills Community HospitalpecialtyStart DateEnd Date Raleigh Collazo MD [address] [place] [address] PCP - [facility]08/28/22
--- OUTSIDE RECORDS SUMMARY | 2025-01-14 22:29 | XMS_ITS | Patient Health Record ---
Author Organization [facility] es Address [address] [place] [address] Care Team Providers Care Insulation Cutter Name Role Phone Karis Varela Primary Care Provider Reason For Referral No Information Social History [...] hurting yourself in some wayNot at allTotal Xfebs09Zqicdnxynhltc Severe Depression Problems Problem Type SNOMED Code ICD Code Onset Dates Problem Status W/U Status Risk Notes Problem Mood disorder (57420010) Mood disorder (F 39) ActiveconfirmedProblemMixed anxiety and depressive disorder (741173632)Mixed anxiety and depressive disorder (F41.8)Activeconfirmed Encounters Encounter Location Date Provider Diagnosis [address] [place] [address] 01/06/2025 Karis Varela Mood disorder F39 and Mixed anxiety and depressive disorder F41.8 [facility] [place] [address] 01/14/2025 Karis Varela Mood disorder F39 and Mixed anxiety and depressive disorder F41.8 Assessments Encounter Date Diagnosis (ICD Code) Assessment Notes Treatment Notes Treatment Clinical Notes Section Notes 01/14/2025 Mood disorder (ICD-10 - F39) 01/06/2025Mood disorder (ICD-10 - F39)01/06/2025Mixed anxiety and depressive disorder (ICD-10 - F41.8)01/14/2025Mixed anxiety and depressive disorder (ICD-10 - F41.8) Plan Of Treatment No Information Insurance Providers Payer Name Payer Address Payer Phone Subscriber Number Group Number Insured Name Patient Relationship to Insured Coverage Start Date Coverage End Date ANTHEM Primary [address] [place] [address] [id number] INDU JORGENSEN Self - patient is the insured
--- OUTSIDE RECORDS SUMMARY | 2025-01-14 22:29 | XMS_ITS | Clinical Summary ---
Author Organization [facility] Address [id number] [address] [place] [address] Care Team Providers Care Golf Club Repairer Name Role Phone Joe Zuleta DO Primary Care Provider [phone] Allergies Active AllergyReactionsCriticalityNoted DateCommentsHouse Dust Mite08/18/2024 Medications [...] total) by mouth in the morning.Active VIT 31-LXXJ-OHZSR-DHA ORAL Take by mouth.Active omega-3 acid ethyl [...] 5Active Active Problems ProblemNoted DateDiagnosed DateHyperemesis of ekxfriwyj72/02/2025Marijuana use during nrpqbefif43/02/2025Pregnancy resulting from in vitro fertilization in second nsvdzdkab78/02/2025Fetal renal anomaly, single gudaipirm24/02/2025 Circumvallate placenta in third stxbdrohz59/02/2025Estimated Date of CkrvqggqIwhybbclBqs35/11/2025Based on Other Basis, Patient had embryo transfer on 05/27/24 with a fresh embryo/oocyte Encounters DateTypeDepartmentCare SndeHdlphcvkiis65/13/2025Telephone Maternal- Medicine at [address] [address] Carolann Nolen RN 12/09/2024 11:30 AM EDTTelemedicine Maternal- Medicine at [address] [phone] Mario Alberto Yung MD 30 weeks gestation of (Primary Dx)12/09/20248863Alzwfg44/03/2025Refill Maternal- Medicine at [address] [phone] Mario Alberto Yung MD 16 weeks gestation of ; Hyperemesis of trwflsnzu13/02/2025Orders Only [facility] Certified Nurse Back Shoe Worker - [address] [address] Salina Garcia RN renal anomaly, single gestation (Primary Dx); Marijuana use during ; resulting from in vitro fertilization in second trimester; 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 xbdzwuhll92/02/2552Ycbjgx05/05/2025 8:30 AM EDT Telemedicine Maternal- Medicine at [address] [address] Mario Alberto Yung MD 16 weeks gestation of ; Hyperemesis of pavmzyrkg68/05/2025Orders Only Maternal- Medicine at [address] [place] [address] Lexi Maya RN Hyperemesis of (Primary Dx); renal anomaly, single gestation; Marijuana use during ; 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; Nausea and vomiting during ; Poor weight gain of , second trimester; In vitro fertilization; 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, antepartum 11/07/20247268Ziswna52Travelfrom Last 3 Months Family History Medical HistoryRelationNameCommentsArthritisFatherLung cancerFatherHeart disease Maternal GrandfatherHypertensionMaternal GrandfatherStrokeMaternal Grandfather CancerMaternal GrandmotherHypertensionMaternal GrandmotherADD / ADHDMother HypothyroidismMotherLung cancerMotherCervical cancerPaternal GrandmotherClotting disorderPaternal GrandmotherHypertensionPaternal GrandmotherRelationNameStatus CommentsFatherMaternal GrandfatherMaternal GrandmotherMotherDeceasedPaternal Grandmother Social History Tobacco UseTypesPacks/DayYears UsedDateSmoking Tobacco: NeverSmokeless Tobacco: Never Tobacco Cessation:Counseling Given: Not Answered Alcohol UseStandard Drinks/WeekCommentsNot Currently0 (1 standard drink = 0.6 oz pure alcohol)ChildcareAnswerDate GtluszdlEkwiuawhyVqdzegd31/10/2019Employment AnswerDate OlqtclicLynegyoioaOfaujpu41/10/2019Hunger ScreeningAnswerDate RecordedWithin the past 12 months we worried whether our food would run out before we got money to buy more.Never True09/02/2024Within the past 12 months the food we bought just didn't last and we didn't have money to get more.Never True09/02/2024Estimated Date of YzlhaakvFnrjwzmjSsh70/11/2025Based on Other Basis, Patient had embryo transfer on 05/27/24 with a fresh embryo/oocyte Sex and Gender InformationValueDate RecordedSex Assigned at BirthNot on file Legal JbfZeazpw59/02/2025 12:00 PM EDTGender IdentityNot on fileSexual OrientationNot on file Last Filed Vital Signs Vital SignReadingTime TakenCommentsBlood Qjymfigd247/7107 8:02 AM EDT Sxklo059709/02/2024 8:02 AM EDTTemperature--Respiratory Rate--Oxygen Saturation-- Inhaled Oxygen Concentration--Mogclf87.8 kg (123 lb)10/03/2024 9:04 AM EDTHeight 167.6 cm (5' 6 )10/03/2024 9:04 AM EDTBody Mass Index19.8508 9:04 AM EDT Plan of Treatment Health MaintenanceDue DateLast DoneCommentsDepression Tgscbxmpz94/27/2007 DTaP,Tdap and Td Vaccines (3 - Td or Tdap), 06/08/1999 Influenza Yegwsms39, 12/31/2012RSV ( or age 60+ yrs) (1 - Risk 1-dose series)12/18/2024dult BMI Ivqzarseg93/01/2026 10/03/2024Tobacco Gudsaradh42Pap Smear, 08/27/2023, 03/19/2023 Medical Devices Not on file Procedures Procedure NamePriorityDate/TimeAssociated DiagnosisCommentsUS [facility] FOLLOW[facility], 1 SWRDURrrhhcg99/02/2025 9:26 AM EDT Hyperemesis of renal anomaly, single gestation Marijuana use during 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 Anatomical RegionLateralityModalityOB-GYNUltrasoundSpecimen (Source)Anatomical Location / LateralityCollection Method / VolumeCollection TimeReceived Time 12/04/2024 9:12 AM EDT Narrative 12/05/2024 5:30 PM EDT NAME: ??JAMEEL GRIGGS : 1995 SEX: F Accession Number: [id number] ORDERING PHYSICIAN: MARIO ALBERTO YUNG REFERRING PHYSICIAN: MARZENA JARRELL Coding Procedures ? 11718: Ultrasound, uterus, real time with image documentation, follow up,transabdominal ? approach per fetus Indication resulting from assisted reproductive technology , Known or suspected damage to fetus by drugs , Malformation of placenta, Supervision of high risk -right pelvic kidney. History OB History ? 3. Para 1 ? [id number] Current Cell free DNA ?Low risk analysis [...] (oz) ? 9 oz EFW by: ?Hadlock (UDX-GL-HU-FL) Extended Tibia ??47.1 mm 28w 4d 12% Luo[address] Office Assistant ? 2.1 mm CM ? 5.7 mm [...] pelvic kidney again visualized. Recommendations Please see [facility] recommendations from prior clinical and/or ultrasound [...] GRIGGS : 1995 SEX: F Accession Number: [id number] ORDERING PHYSICIAN: MARIO ALBERTO YUNG REFERRING PHYSICIAN: MARZENA JARRELL Coding Procedures 18724: Ultrasound, uterus, real time with image documentation, follow up, transabdominal approach per fetus Indication resulting from assisted reproductive technology , Known orsuspected damage to fetus by drugs , Malformation of placenta, Supervision of high risk -right pelvic kidney. History OB History 3. Para 1 V3D9M2S1 Current Cell free DNA Low risk analysis [...] EFW (oz) 9 oz EFW by: Hadlock (KGJ-OH-JH-FL) Extended Tibia 47.1 mm 28w 4d 12% Louann Senior [address] Office Assistant 2.1 mm CM 5.7 mm 16% Nicolaides [...] pelvic kidney again visualized. Recommendations Please see [facility] recommendations from prior clinical and/or ultrasoundreport documentation. The patient is scheduled in four weeks for follow up growth ultrasound. Subsequent follow up or other follow up as clinically determined byprimary OB provider unless otherwise specified by [facility]. Results forwarded to ordering provider so they can follow up with thepatient as necessary. Authorizing ProviderResult TypeResult StatusMario Alberto Yung MDIMG ORDERABLESFinal Result from Last 3 Months Insurance Care Teams Team MemberRelationshipSpecialtyStart DateEnd Date Joe Zuleta DO [address] [place] [address] [facility]
--- OUTSIDE RECORDS SUMMARY | 2025-01-14 22:29 | XMS_ITS | Encounter Summary ---
Author Organization [facility] Address [address] [facility] [place] [address] Care Team Providers Care Nursing Department Chairperson Name Role Phone Raleigh Collazo MD Primary Care Provider [phone] Encounter Details DateTypeDepartmentCare Team (Latest Contact Info)Huubmedphsn33/11/2025amboo flowsheet [facility] [address] [place] [address] Uriel Meade DO [address] [facility] [place], [facility] Social History Tobacco UseTypesPacks/DayYears UsedDateSmoking Tobacco: [...] friends or relatives?Never02/15/2024How often do you attend methodist or worship services?Never4Do you belong to any clubs or organizations such as methodist groups, unions, fraternal or athletic isauro ups, or school groups?No02/15/2024How often do you attend meetings of the clubs or organizations you belong to?Never02/15/2024re you , , , , never , or living with a partner?Uslwqnr0202/15/2024 AUDIT-CAnswerDate RecordedQ1: How often do you have [...] housing, medical care, and heating?Not hard at all02/15/2024Finintermount[facility] [place] of Occupational Health - Occupational Stress QuestionnaireAnswerDate [...] homeless or living in a intermediate (including now)?No4Estimated Date of DeliveryComments Yes5Based on Interfaced EDDSex and Gender InformationValueDate Recorded Sex Assigned at BirthNot on fileLegal NadZvpxhw71/15/2023 7:05 PM EDTGender IdentityNot on fileSexual OrientationNot on filedocumented as of this encounter Plan of Treatment DateTypeDepartmentCare Team (Latest Contact Info)Isdgnddzyur86/18/2025 10:00 AM ESTRoutine [facility] [address] [facility] [place] [address] Uriel Meade DO [address] [facility] [address] [place] [place], [place] [phone] documented as of this encounter Visit Diagnoses Not on filedocumented in this encounter Care Teams Team MemberRelationshipSpecialtyStart DateEnd Date Raleigh Collazo MD [address] [place] [address] PCP - GeneralFamily Medicine08/28/22documented as of this encounter
--- OUTSIDE RECORDS SUMMARY | 2025-01-14 22:29 | XMS_ITS | Encounter Summary ---
Author Organization [facility] Address [address] [place] [address] Care Team Providers Care Table Games Floor Supervisor Name Role Phone Raleigh Collazo MD Primary Care Provider [phone] Encounter Details DateTypeDepartmentCare Team (Latest Contact Info)Vbpuzamtmer78/30/2025Telephone [facility] [address] [place] [address] Belinda Noble MA [address] [place] [address] Social History Tobacco UseTypesPacks/DayYears UsedDateSmoking Tobacco: NeverAlcohol [...] friends or relatives?Never02/15/2024How often do you attend gnosticist or yazidi services?Never4Do you belong to any clubs or organizations such as gnosticist groups, unions, fraternal or athletic isauro ups, or school groups?No02/15/2024How often do you attend meetings of the clubs or organizations you belong to?Never4Are you , , , , never , or living with a partner?Iqqasgb8802/15/2024 AUDIT-CAnswerDate RecordedQ1: How often do you have [...] and heating?Not hard at all02/15/2024[facility] Occupational Stress QuestionnaireAnswerDate [...] or living in a skilled nursing (including now)?No4Estimated Date of DeliveryComments Yes5Based on Interfaced EDDSex and Gender InformationValueDate Recorded Sex Assigned at BirthNot on fileLegal ExzVodzyh40/15/2023 7:05 PM EDTGender IdentityNot on fileSexual OrientationNot [...] Plan of Treatment DateTypeDepartmentCare Team (Latest Contact Info)Mfhuviljwzg77/18/2025 10:00 AM ESTRoutine [facility] [address] [place] [id number] Uriel Meade, [address] [place] [address] documented as of this encounter Visit Diagnoses Not on filedocumented in this encounter Care Teams Team MemberRelationshipSpecialtyStart DateEnd Date Raleigh Collazo MD [address] [place] [address] PCP - GeneralFamily Medicine08/28/22documented as of this encounter
--- OUTSIDE RECORDS SUMMARY | 2025-01-14 22:29 | XMS_ITS | CCD ---
Author Organization [facility] Care Team Providers Care Reservations Sales Agent Name Role Phone YASMIN MARTINEZ Consulting Unavailable CAROLYNE COLLAZO Primary Care Unavailable YASMIN MARTINEZ Admitting Unavailable YASMIN MARTINEZ Attending Unavailable GIGI COBB Unavailable YASMIN MARTINEZ Admitting Unavailable RONALDKYASMIN Attending Unavailable YASMIN MARTINEZ Consulting Unavailable YASMIN MARTINEZ Consulting Unavailable RONALDKYASMIN Admitting Unavailable YASMIN MARTINEZ Attending Unavailable YASMIN MARTINEZ Primary Care Unavailable YASMIN MARTINEZ Admitting Unavailable YASMIN MARTINEZ Attending Unavailable Uriel Meade DO Unavailable Unavailable Primary Care Provider UnavailKARINA Tilley Attending Unavailable Carolyne Collazo Primary Care Physician [phone] GWEN DANIELSON Attending Unavailable Mohelena Mohamad A. Referring Unavailable Mouchli, Mohamad A. Admitting Unavailable Alex Knutson ATyrone Attending Unavailable Alex Knutson Attending Unavailable Carolyne Collazo Referring Unavailable Mohelena, Mohamad ATyrone Referring Unavailable Mohelena Mohamad ATyrone Attending Unavailable Alex Knutson ATyrone Admitting Unavailable Carolyne Collazo MD Primary Care Provider [phone] Carolyne Collazo Attending Unavailable Carolyne Collazo Admitting [...] Consulting Unavailable Jade Ledbetter Admitting Unavailable Jade Ledebtter Attending Unavailable Jade Ledbetter Referring Unavailable Carolyne Collazo [facility] Care Unavailable Song DO, [facility] Care Provider [facility] MILAN LERNER Attending Unavailable SONG, [facility] Unavailabl e MILAN LERNER Referring Unavailable SONG, [facility] Unavailabl e Josh Gilbert Attending Unavailable Samantha QUINN Admitting Unavailable Basim Diaz Consulting Unavailable Bk Garduno Attending Unavailable Lucina, Saundra Peace Attending Unavailable Saundra Verdugo Admitting Unavailable Unavailable Primary Care Provider Unavailabl e SONG, [facility] Unavailabl e ROSMERY SANDOVAL Admitting Unavailable ROSMEYR SANDOVAL Attending Unavailable MAYRA DOBSON Referring Unavailable SONG, [facility] Unavailabl e PRABHU FRIEDMAN Referring Unavailable [facility] Unavailabl e Song GARDNER, Yasmin Primary Care Provider Song DO, Yasmin Primary Care Provider [phone] JADE LEDBETTER Admitting Unavailable JADE LEDBETTER Attending Unavailable JADE LEDBETTER Referring Unavailable DIANA, MILLIEA P Referring Unavailable SONG, [facility] Care Unavailable DOCSUSHANT, NIKOLINA P Referring Unavailable SONG, [facility] Care Unavailable DOCSUSHANT, NIKOLINA P Referring Unavailable SONG, [facility] Care Unavailable Uriel MEADE Attending Unavailable Uriel MEADE Admitting Unavailable Lucina, Saundra Peace Attending Unavailable Saundra Verdugo Admitting Unavailable URIEL MEADE Referring Unavailable SONG [facility] Care Unavailable SONG, YASMIN Referring Unavailable SONG, [facility] Unavailable URIEL MEADE R Referring Unavailable SONG, [facility] Unavailable DIANA, MARIO ALBERTO P Attending Unavailable URIEL MEADE R Referring Unavailable HALINA, URIEL R Referring Unavailable MARIA T LAMBERT Attending Unavailable HALINA, URIEL R Referring Unavailable SONG, JEFFERSON Primary Care Unavailable KRUPA JONES Attending Unavailable HALINA, URIEL R Referring Unavailable SONG, YASMIN Primary Care Unavailable MARIO ALBERTO ORTIZ Attending Unavailable HALINA, URIEL R Referring Unavailable SONG, YASMIN Primary Care Unavailable DIANA, MARIO ALBERTO Gonzalez Attending Unavailable HALINA, URIEL R Referring Unavailable SONG, YASMIN Primary Care Unavailable HALINA, Uriel R Referring Unavailable HALINA, [...] Verdugo Attending Unavailable DOLORES CALDWELL Admitting Unavailable TDDOLORES GIPSON Attending Unavailable HALINA, Uriel R Attending Unavailable HALINA, Uriel R Admitting Unavailable HALINA, Uriel R Admitting Unavailable HALINA, Uriel R Attending Unavailable HALINA, Uriel R Admitting Unavailable HALINA, Uriel R Attending Unavailable HALINA, Uriel R Admitting Unavailable HALINA, Uriel R Attending Unavailable HALINA, Uriel R Admitting Unavailable HALINA, Uriel R Attending Unavailable HALINA, Uriel R Admitting Unavailable HALINA, Uriel R Attending Unavailable TDDOLORES MEJIA Admitting Unavailable TDDOLORES GIPSON Attending Unavailable HALINA, Uriel R Admitting Unavailable HALINA, Uriel R Attending Unavailable CAROLYNE COLLAZO Attending Unavailable HALINA, URIEL Attending Unavailable HALINA, URIEL Attending Unavailable HALINA, URIEL Attending Unavailable HALINA, URIEL Attending Unavailable URIEL MEADE Attending Unavailable URIEL MEADE Attending Unavailable DOLORES CALDWELL Attending Unavailable URIEL MEADE Attending Unavailable DARY WILHELM Attending Unavailable URIEL MEADE Attending Unavailable CAROL MAGAÑA Attending Unavailable Allergies Allergy ClassificationReported Allergen(s)Allergy TypeDate of OnsetReaction(s) Facility (20 sources)No Known Medication Allergies; Translations: [No Known Medication Allergies]Propensity to adverse reactions (disorder)[facility] Repository (20 sources)House dust miteAllergy to mhjxtsluf97-39-1323[facility] (20 sources)House Dust Mite; Translations: [HOUSE DUST MITE]Propensity to adverse reactions to [facility]07[facility] Medic[facility] Current Medications MedicationDrug Class(es)DatesSig (Normalized)Sig (Original)acetaminophen 650 mg rectal suppository (2 sources)Start: 38-63-2618hgwbonqgdnehv (Tylenol) 650 mg suppository Indications: Nausea and vomiting, unspecified vomiting type , Chest pain, unspecified type Insert 1 suppository (650 mg) into the rectum every 6 hours. 60 suppository 08/16/2024 ActiveStart: 79-15-4157dpdg 650 mg rectal route every six hours as needed for juul189 mg, rectal, Every 6 hours scheduled, First dose on Sun08/15/24 at 1800, If ordered PRN for pain, nurse is permitted to administer this medication for higher pain scores based on patient preference? YesAdvair HFA 115 mcg-21 mcg/inh inhalation aerosol with adapter (3 sources)Start: 24-09-5565dtmg 2 puff(s) by inhalation twice dailyAdvair HFA 115 mcg-21 mcg/inh inhalation aerosol with adapter 2 puff(s), Inhalation, BID Shortness of breath or wheezing, Refill(s) 6 Start Date: 09/13/23 Status: Ordered Start: 82-34-8868qmxd 2 puff(s) by inhalation twice dailyAdvair HFA 115 mcg-21 mcg/inh inhalation aerosol with adapter 2 puff(s), Inhalation, BID, Refill(s)6 Start Date: 09/13/23 Status: OrderedALPRAZolam 0.5 mg oral tablet (20 sources)BenzodiazepineStart: 13-37-9699gury 1 tablet by mouth three times daily as needed for anxietyXanax 0.5 mg Tab 0.5 mg = 1 tab(s), Oral, TID, PRN for anxiety, Refills(s) 0 Start Date: 09/13/23 Status: OrderedStart: 09-09-2019 End: 56-09-5588qiqu 0.5 mg by mouth twice dailyXanax 0.5 mg, Oral, BID, Refills(s) 0, Anxiety Start Date: 09/09/19 Status: Orderedazithromycin 250 mg oral tablet (3 sources)Macrolide AntimicrobialStart: 11-05-2024 End: 66-60-6393lointorohtwh (Zithromax Z-Lucho) 250 MG tablet Indications: Other acute sinusitis, recurrence not specified As directed 6 tablet 11/05/2024 11/18/2024 Discontinuedbenzocaine 15 mg / menthol 3.6 mg oral lozenge (1 source)Standardized Chemical AllergenStart: lozenge, Mouth/Throat, Every 2 hour PRN, sore throat, Starting on Sun08/15/24 at 1540 bisacodyl 10 mg rectal suppository (1 source)Stimulant LaxativeStart: 34-79-5845oitj 10 mg rectal route every twenty-four hours as neededblood-glucose sensor (FREESTYLE PABLITO 3 PLUS SENSOR) device (15 sources)Start: 29-41-1735htxbk-glucose sensor (FREESTYLE PABLITO 3 PLUS SENSOR) device Indications: 16 weeks gestation of , Hyperemesis of , Cyclical vomiting with nausea Wear for 15 d and change 2 each 4 ActiveBoost/Ensure (1 source)Start: 22-78-6089Quanj/Ensure Boost/Ensure, 8oz BID x 2-4 weeks. Disp #24 (twenty-four), BIDAC, Print Requisition, Supply Start Date: 06/22/24 Status: Ordered Repeat number: 1 Indications: Mild hyperemesis gravidarum;60 actuat budesonide 0.08 mg/actuat / formoterol fumarate 0.0045 mg/actuat metered dose inhaler (20 sources)Corticosteroid, beta2-Adrenergic AgonistStart: 08-23-2023 End: 72-37-9720ixbq 2 puff(s) by mouth once dailybudesonide-formoterol (Breyna) [...] 80-4.5 MCG/ACT inhaler (20 sources)Start: 08-23-2023 End: 08-65-9596eqfi 2 puff(s) by mouth once dailybudesonide-formoterol (Breyna) 80-4.5 MCG/ACT inhaler Indications: Mild intermittent asthma withoutcomplication (CMS/HCC) Inhale 2 puffs Daily Rinse mouth with water after use to reduce aftertaste and incidence of candidiasis. Do not swallow. 10.2 g 2 08/23/2023 08/22/2024 ActivebusPIRone hydrochloride 5 mg oral tablet (20 sources)Start: 07-30-2024 End: 66-29-7021ibfn 1 tablet by mouth in the morningbusPIRone (Buspar) 5 MG tablet Indications: Anxiety, generalized Take 1 tablet (5 mg) by mouth in the morning and 1 tablet (5 mg) before bedtime. 60 tablet 1 07/30/2024 08/26/2024 Discontinuedcalcium carbonate 500 mg chewable tablet (1 source)Start: 31-15-0621nzrv 1 tablet by mouth every six hours as needed1 tablet, oral, Every 6 hours PRN, heartburn, Starting on Sun08/15/24 at 0305 calcium carbonate 120 mg/ml / magnesium hydroxide 27 mg/ml / simethicone 8 mg/ml oral suspension (1 source)Start: 47-86-7848nfwz 10 mL by mouth every eight hourscalcium [...] meq/ml injectable solution (2 sources)Start: 08-14-2024 End: 95-18-5835pred 125 mL intravenously every ieff334 mL/hr, intravenous, Continuous, Starting on Sun08/15/24 at 0310, For 1 daycapsaicin 0.75 mg/ml topical cream (2 sources)Start: 81-99-8263gfgic 1 dose topically three times dailyTopical, 3 times daily, First dose on Sun08/15/24 at 1600, Apply to: abdomen or chest cholecalciferol 0.025 mg oral tablet (20 sources)Vitamin DStart: 08-20-8912pedq 1 tablet by mouth once daily cholecalciferol [...] 50 mg oral capsule (3 sources)Alkylating DrugStart: 11-20-9683eaehlfonlfimahjp 50 mg oral capsule Refills(s) 0, Other (see comment) Start Date: 09/13/23 Status: Ordered docosahexaenoic acid 120 mg / eicosapentaenoic acid 180 mg oral capsule (20 sources)Start: 01-22-2024 End: 24-54-9480jmit 1 capsule by mouth once dailyfish oil concentrate (Erwin-3) 1000 MG capsule Indications: Female infertility , Fallopian tube disorder , Anovulation Take 1 capsule (1 g) by mouth Daily 30 capsule 11 02/21/2024 02/20/2025 Activedoxylamine succinate 25 mg oral tablet (16 sources)Start: 92-11-6647ssja 1 tablet by mouth once daily as needed for sleepdoxylamine (UNISOM) 25 mg tablet Indications: 16 weeks gestation of , Hyperemesis of Take 1 tablet (25 mg total) by mouth nightly as needed for sleep. 90 tablet 1 09/02/2024 Activeestradiol 2 mg oral tablet (2 sources)EstrogenStart: 08-61-7593lasv 1 tablet by mouth once dailyestradiol (ESTRACE) 2 mg tablet Take 1 tablet by mouth once daily. x 1 week for breakthrough bleeding 7 tablet 2 01/21/2021 ActiveEthinyl Estradiol / Norethindrone (2 sources)EstrogenStart: 82-31-0654mspt 1 tablet by mouth once daily, then take 0.05 tablet by mouth onceNorethindrone Acet-Ethinyl Est (LOESTRIN 03/24, ,) 1- 20 mg-mcg per tablet Take 1 tablet by mouth once daily. in continuous fashion 90 tablet 3 03/21/2021 Active2 ml famotidine 10 mg/ml injection (4 sources)Histamine-2 Receptor AntagonistStart: 34-90-684540 mg, intravenous, Administer over 2 Minutes, Every 12 hours scheduled, First dose on Sun08/15/24 a t 2100Start: 08-14-2024 End: 10-77-370323 mg, intravenous, Administer over 2 Minutes, Once, On Sun08/14/24 at 2305, For 1 doseStart: 09-88-5136dakm 1 tablet by mouth twice daily famotidine 20 mg Tab 20 mg = 1 tab(s), Oral, BID, # 60 tab(s), Refills(s) 0, Pharmacy: [facility] #[id number], 167, cm, 06/19/24 10:50:00 EDT, Height/Length Dosing, 48.9, kg, 06/19/24 10:50:00 EDT, Weight Dosing Start Date: 06/21/24 Status: Ordered Quantity: 60.0 Unit: tab(s) Repeat number: 1Start: 07-20-2023 End: 20-46-318555 mg, intravenous, Once, On Sun07/20/23 at 1910, For 1 doseFish Oils (1 source)Start: 13-36-7946ibxg 500 mg by mouth once dailyFish Oil 500 mg, Oral, Daily, Refill(s) 0 Start Date: 06/19/24 Status: Ordered Repeat number: 11 ml hydrALAZINE hydrochloride 20 mg/ml injection (1 source)Arteriolar VasodilatorStart: 08-04-3217vzcwVZOsqju hydrochloride 25 mg oral tablet (2 sources)AntihistamineStart: 02-04-5285ctli 25 mg by mouth once25 mg, oral, Once, On Sun08/15/24 at 2030, For 1 doseStart: 65-88-5476eent 1 tablet by mouth every eight hours for anxietyhydrOXYzine HCL (Atarax) 25 mg tablet Indications: Nausea and vomiting, unspecified vomiting type ,Chest pain, unspecified type Take 1 tablet (25 mg) by mouth every 8 hours if needed for itching or anxiety. 20 tablet 08/15/2024 Activelabetalol hydrochloride 5 mg/ml injectable solution (2 sources)beta-Adrenergic BlockerStart: 80-68-2225Yrrlv: 08-14-2024 End: mg, intravenous, Once, On Sun08/14/24 at 2305, For 1 dose, Give at rate of 10 mg/min.Lidocaine (2 sources)Antiarrhythmic, Amide Local AnestheticStart: 00-41-3208Uwcco: 08-13-2024 End: 12-49-1029sphm 15 mL by mouth once15 mL, oral, Once, On Sun08/13/24 at 0945, For 1 jhryabiigyvmp-jbohxxxznzCUBXC-Ogvxgi 1:1:1 Magic Mouthwash (1 source)Start: 30-65-907138 mL, Swish & Swallow, Every 6 hours PRN, stomatitis, mucositis, other, GERD, Starting on Sun08/15/24 at 1306magnesium hydroxide 80 mg/ml oral suspension (1 source)Start: 54-63-1150osvquwbrk hydrochloride 25 mg chewable tablet (16 sources)AntiemeticStart: 57-51-3665wsnbbnhxw (ANTIVERT) 25 mg tablet Indications: 16 weeks gestation of , Hyperemesis of Chew 1 tablet (25 mg total) and swallow 3 (three) times a day as needed for dizziness or nausea. 30 tablet 09/02/2024 Active2 ml metoclopramide 5 mg/ml injection (10 sources)Dopamine-2 Receptor AntagonistStart: 73-17-389596 mg, intravenous, Every 6 hours scheduled, First dose on Sun08/15/24 at 0600Start: 08-14-2024 End: 81-02-624592 mg, intravenous, Once, On Moriah 08/14/24 at 2355, For 1 dose Start: 03-67-6598aizn 1 tablet by mouth four times dailyReglan 5 mg Tab 5 mg = 1 tab(s), Oral, QID, # 120 tab(s), Refills(s) 0, Pharmacy: [facility] #[id number], 167, cm, 06/19/24 10:50:00 EDT, Height/Length Dosing, 48.9, kg, 06/19/24 10:50:00 EDT, Weight Dosing Start Date: 06/21/24 Status: Ordered Quantity: 120.0 Unit: tab(s) Repeat number: 1 End: 25-48-5147enrhagsvisbzty (Reglan) 10 MG tablet Take 10 mg by mouth 07/30/2024 DiscontinuedMiraLax 3350 Oral Pwdr for Recon 249 gram (6 sources)Start: 01-37-1950WkjyEpt 3350 Oral Pwdr for Recon 249 gram 17 gram, Oral, Daily, # 527 gram, Refills(s) 0, Pharmacy:[facility] #[id number], 168, cm, 09/15/19 7:03:00 EDT, Height/Length Measured, 52, kg, 09/15/19 7:03:00 EDT, Weight Measured Start Date: 09/16/19 Status: Ordered Quantity: 527.0 Unit: g Repeat number: 1Start: 13-43-9250AgpkTso 3350 Oral Pwdr for Recon 249 gram 17 gram, Oral, Daily, # 527 gram, Refills(s) 0, Pharmacy:[facility] #[id number], 168, cm, 09/15/19 7:03:00 EDT, Height/Length Measured, 52, kg, 09/15/19 7:03:00 EDT, Weight Measured Start Date: 09/16/19 Status: Orderednaloxone hydrochloride 40 mg/ml nasal spray (1 source)Opioid AntagonistStart: 65-24-0583txxsawvu 4 mg/0.1 mL nasal spray 4 mg, Nasal, As Directed, for suspected overdose symptoms, # 1 kit(s), Refills(s) 0, Pharmacy: [facility], 167, cm, 06/19/24 10:50:00 EDT, Height/Length Dosing, 48.9, kg, 06/19/24 10:50:00 EDT, Weight Dosing Start Date: 06/22/24 Status: Ordered Quantity: 1.0 Unit: kit(s) Repeat number: 1NIFEdipine 10 mg oral capsule (1 source)Dihydropyridine Calcium Channel BlockerStart: 60-54-5313RGLRWuqrhs 5 mg disintegrating oral tablet (20 sources)Atypical AntipsychoticStart: 76-88-5826tsml 2.5 mg by mouth twice daily2.5 mg, oral, 2 times daily, First dose on Sun08/15/24 at 2100Start: 08-71-0708spak 1 tablet by mouth every six hoursolanzapine 2.5 mg Tab 2.5 mg = 1 tab(s), Oral, q6hr, Refills(s) 0 Start Date: 08/14/24 Status: Ordered Repeat number: 1Start: 83-04-3922bwxc 2.5 mg by mouth twice daily2.5 mg, oral, 2 times daily, First dose on Sun08/15/24 at 0900, On hold since Sun08/15/2024 at 1557 until manually unheldtake 1 tablet by mouth every eight hours as needed OLANZapine (ZyPREXA) 2.5 mg tablet Take 1 tablet (2.5 mg total) by mouth every 8 (eight) hours as needed. Activeomega-3 acid ethyl esters (nursing home) 1000 mg oral capsule (17 sources)take 1 capsule by mouth at bedtimeomega-3 acid ethyl esters (LOVAZA) 1 gram capsule Take 2 capsules (2 g total) by mouth in the morning and 2 capsules (2 g total) before bedtime. Activeondansetron 8 mg disintegrating oral tablet (20 sources)Serotonin-3 Receptor AntagonistStart: 05-49-6973qaoq 1 tablet by mouth every eight hours [...] via IV Push, administer over 3-5 minutes.Start: 59-78-6162tvya 1 tablet by mouth every eight hours as needed for nausea and vomitingondansetron (Zofran) 8 MG tablet Take 8 mg by mouth every 8 (eight) hours if needed for nausea or vomiting 08/14/2024 ActiveStart: 08-13-2024 End: mg, intravenous, Once, On Sun08/13/24 at 0930, For 1 dose, When administering via IV Push, administer over 3-5 minutes.Start: 08-04-2024 End: 94-28-4101rflt 1 tablet by mouth four times daily as neededondansetron ODT (Zofran-ODT) 8 mg disintegrating tablet Dissolve 1 tablet (8 mg) in the mouth 4 times a day as needed. 08/04/2024 08/15/2024 DiscontinuedStart: 06-19-2024 End: 23-61-9183eajd 1 tablet by mouth every six hours for nauseaondansetron ODT (Zofran-ODT) 4 MG disintegrating tablet Indications: Nausea and vomiting, unspecified vomiting type Take 1 tablet (4 mg) by mouth every 6 (six) hours if needed for nausea or vomiting 30 tablet 2 06/19/2024 07/19/2024 ActiveStart: 07-20-2023 End: 99-64-1143vald 1 tablet by mouth every eight hours for nauseaondansetron ODT (Zofran-ODT) 4 mg disintegrating tablet Indications: Nausea and vomiting, unspecified vomiting type Take 1 tablet (4 mg) by mouth every 8 hours if needed for nausea or vomiting for upto 7 days. 20 tablet 07/20/2023 07/27/2023 Active End: 70-65-2659umtq 1 tablet by mouth every eight hours as needed for nausea and vomitingondansetron (ZOFRAN) 4 mg tablet Take 1 tablet (4 mg total) by mouth every 8 (eight) hours as needed for nausea or vomiting. 09/02/2024 Discontinued (Alternate therapy)oxyCODONE hydrochloride 5 mg oral capsule (1 source)Opioid AgonistStart: 84-82-1093ajoq 1 capsule by mouth every twelve hours as needed for painoxyCODONE 5 mg Cap 5 mg = 1 cap(s), Oral, q12hr, PRN for pain, # 6 cap(s), Refills(s) 0, Pharmacy: [facility], 167, cm, 06/19/24 10:50:00 EDT, Height/Length Dosing, 48.9, kg, 06/19/24 10:50:00 EDT, Weight Dosing Start Date: 06/22/24 Status: Ordered Quantity: 6.0 Unit: cap(s) Repeat number: 1 Indications: Mild hyperemesis gravidarum; Vomiting, unspecified;pantoprazole 20 mg delayed release oral tablet (20 sources)Proton Pump InhibitorStart: 09-02-2024 End: 01-93-8235sphs 1 tablet by mouth in the morningpantoprazole (PROTONIX) 20 mg EC tablet Indications: 16 weeks gestation of , Hyperemesis of TAKE 1 TABLET(20 MG) BY MOUTH IN THE MORNING 90 tablet 12/07/2024 ActiveStart: 87-96-959064 mg, intravenous, Daily, First dose on Sun08/15/24 at 0900, Reconstitute each 40 mg vial with 10 mL NS to make 4 mg/mL solution.Start: 96-98-9915Ajolybzjjgyw [address] Tab 30 EA, 0 Refill(s), Refills(s) 0 Start Date: 09/13/23 Status: OrderedStart: 08-23-2023 End: 59-12-3661otop 1 tablet by mouth once daily before mealtimepantoprazole (ProtoNix) 40 mg EC tablet Indications: Nausea and vomiting, unspecified vomiting typeTake 1 tablet (40 mg) by mouth once daily in the morning. Take before meals. Do not crush, chew, orsplit. 30 tablet 08/13/2024 08/13/2025 ActiveStart: 07-20-2023 End: 50-51-7930cvaf 1 tablet by mouth once dailypantoprazole (ProtoNix) [...] For 1 dose, CV Medicationspolyethylene glycol 3350 67311 mg powder for oral solution (20 sources)Osmotic LaxativeStart: 31-99-5346Nmwuomqc 19 ([place]) (1 source)Start: 48-35-7879Hfqkzgyh 19 ([place]) See Instructions, Refill(s) 0, Oral Start Date: 06/19/24 Status: Ordered Repeat number: 1prenatal no115/iron/folic acid ( 19 ORAL) (3 sources)Start: 02-21-2024 End: 45-47-4283ejcu 1 tablet by mouth once dailyprenatal no115/iron/folic acid ( 19 ORAL) Take 1 tablet by mouth once daily. 02/21/2024 02/20/2025 ActivePRENATAL VIT 52-CSLI-UEMCI-DHA ORAL (17 sources) VIT 78-HSBH-ENUIB-DHA ORAL Take by mouth. ActivePrenatal Vit-Fe Fumarate-FA ( Vitamins) 28-0.8 MG tablet (20 sources)Start: 02-21-2024 End: 02-82-0368dfhv 1 tablet by mouth once dailyPrenatal Vit-Fe Fumarate-FA ( Vitamins) 28-0.8 MG tablet Indications: Female infertility , Fallopian tube disorder , Anovulation Take 1 tablet by mouth Daily 30 tablet 11 02/21/2024 02/20/2025 ActiveStart: 01-22-2024 End: 47-74-1157mkka 1 tablet by mouth once dailyPrenatal Vit-Fe Fumarate-FA ( Vitamins) 28-0.8 MG tablet Indications: Female infertility , Fallopian tube disorder , Anovulation Take 1 tablet by mouth Daily 30 tablet 11 01/22/2024 01/21/2025 Activeprenatal vitamin (iron-folic) tablet 1 tablet (1 source)Start: 91-22-8834Vlavbjrrtbhkiwtz (1 source)PhenothiazineStart: 47-42-8218miax 1 tablet by mouth every six hours as neededprochlorperazine (Compazine) tablet 10 mgProtonix 40 mg Tab-EC (5 sources)Start: 47-83-5510cxcb 1 tablet by mouth once daily 30 minutes before breakfastProtonix 40 mg Tab-EC 40 mg = 1 tab(s), Oral, Daily, Take 30 minutes before breakfast, # 30 tab(s),Refills(s) 1, Pharmacy: [facility] #[id number], 168, cm, 09/09/19 8:18:00 EDT, Height/Length Measured, 52, kg, 09/09/19 8:18:00 EDT, Weight Measured Start Date: 09/09/19 Status: Orderedpyridoxine hydrochloride 25 mg oral tablet (16 sources)Start: 95-20-0861jqpt 1 tablet by mouth three times dailypyridoxine, vitamin B6, (B-6) 25 mg tablet Indications: 16 weeks gestation of , Hyperemesis of Take 1 tablet (25 mg total) by mouth 3 (three) times a day. 90 tablet 1 09/02/2024 ActiveQUEtiapine 50 mg oral tablet (20 sources)Atypical AntipsychoticStart: 42-26-5224xlgx 50 mg by mouth twice daily50 mg, oral, 2 times daily, First dose on Sun08/15/24 at 971098 hr scopolamine 0.0139 mg/hr transdermal system (1 source)AnticholinergicStart: patch, transdermal, Administer over 72 Hours, Every 72 hours, First dose on Sun08/15/24 at 0310, Wash hands before and after application to avoid drug contact with eyes. Apply to hairless area of skin behind the ear. Once patch has been affixed behind ear, do not touch while being worn.sennosides, nursing home 1.76 mg/ml oral solution (1 source)Start: 71-94-7276nwjc 5 mL by mouth twice daily5 mL, oral, 2 times daily, First dose on Sun08/15/24 at 0900simethicone 80 mg chewable tablet (17 sources)Start: 84-67-3751wvtpsdkzetl (MYLICON) 80 mg chewable tablet Indications: 16 weeks gestation of , Hyperemesis of Chew 1 tablet (80 mg total) and swallow every 6 (six) hours as needed for flatulence. 30 tablet 1 09/02/2024 ActiveStart: 63-26-6047ubeljickul 100 mg/ml oral suspension (20 sources)Aluminum ComplexStart: 07-02-2024 End: 68-83-9635yuwi 1 g by mouth at bedtimesucralfate (Carafate) [...] bedtime. 1200 mL 3 07/02/2024 08/01/2024 ActiveStart: 13-26-0121Yjeuileo 1 g/10 mL Susp-Oral 1 gm = 10 mL, Oral, QIDACHS, # 400 mL, Refills(s) 0, [id number], 167, cm, 06/19/24 10:50:00 EDT, Height/Length Dosing, [...] injection.thiamine 50 mg oral tablet (17 sources)Start: 61-31-3173fjid 2 tablets by mouth in the morningthiamine HCl (VITAMIN B-1) 50 mg tablet Indications: 16 weeks gestation of , Hyperemesis of Take 2 tablets (100 mg total) by mouth in the morning. 90 tablet 1 09/02/2024 ActiveStart: 93-25-5777630 mg, intravenous, Daily, First dose on Sun08/15/24 at 1105, For IV push use, administer over 1-2minutes.witch mark 500 mg/ml medicated pad (5 sources)Start: 96-46-9527rtvcf mark-glycerin (Tucks) pad Indications: Hemorrhoids, unspecified hemorrhoid type Apply topically if needed for irritation 50 each 2 12/16/2024 ActiveZofran ODT 4 mg Tab-Dis (1 source)Start: 75-40-7947rkmz 1 tablet by mouth every six hoursZofran ODT 4 mg Tab-Dis 4 mg = 1 tab(s), Oral, q6hr, # 60 tab(s), Refills(s) 0, [id number], 167, cm, 06/19/24 10:50:00 EDT, Height/Length Dosing, 48.9, kg, 06/19/24 10:50:00 EDT, Weight Dosing Start Date: 06/21/24 Status: Ordered Quantity: 60.0 Unit: tab(s) Repeat number: 1 Completed/Discontinued Medications MedicationDrug Class(es)DatesSig (Normalized)Sig (Original)aluminum hydroxide 40 mg/ml / magnesium hydroxide 40 mg/ml / simethicone 4 mg/ml oral suspension (1 source)Start: 08-13-2024 End: 74-94-9430qtfp 30 mL by mouth once30 mL, oral, Once, On Sun08/13/24 at 0945, For 1 doseARIPiprazole 5 mg oral tablet (20 sources)Atypical AntipsychoticStart: 04-14-2024 End: 78-12-5316uysj 1 tablet by mouth once dailyARIPiprazole (Abilify) [...] IV push, max rate of 25 mg/min.Start: 00-00-8303ygow 25 mg intravenously every six hours25 mg, intravenous, Every 6 hours, First dose on Sun08/15/24 at 0310, If giving IV push, max rate of 25 mg/min.Start: 08-15-2024 End: 36-37-412778 mg, intravenous, Once, On Sun08/15/24 at 0000, For 1 dose, If giving IV push, max rate of 25 mg/min.Start: 07-20-2023 End: 44-46-935165 mg, intravenous, Once, On Sun07/20/23 at 1455, For 1 dose, If giving IV push, max rate of 25 mg/min.Haloperidol (3 sources)Typical AntipsychoticStart: 08-15-2024 End: mg, intramuscular, Once, On Sun08/15/24 at 1615, For 1 dose, Patients receiving IV haloperidol should be on continuous cardiac monitoring. Start: 08-15-2024 End: 09-98-1436Quqsmuhk on Sun08/15/24 at 1600, For 1 dose, [...] with radiology test) (1 source)Start: 07-11-2023 End: 12-13-9696vk contrast (will be provided with radiology test) [...] 0900, For 1 dose Start: 07-20-2023 End: 11-34-243814 mg, intravenous, Once, On Sun07/20/23 at 1650, For 1 dose lamoTRIgine 25 mg oral tablet (7 sources)Mood Stabilizer, Anti-epileptic AgentStart: 02-22-9372tqku 1 tablet by mouth twice dailylamotrigine 25 mg Tab 42 EA, 0 Refill(s), TAKE 1 TABLET BY MOUTH DAILY FOR 14 DAYS THEN TAKE 1 TABLET BY MOUTH TWICE DAILY, Refills(s) 0 Start Date: 09/13/23 Status: OrderedStart: 07-26-2023 End: 11-47-0715kiqlBMMditg (LaMICtal) 25 MG tablet Indications: Bipolar 1 disorder (CMS/HCC) 25 mg daily x 14 days, then 25 mg twice daily 42 tablet 1 07/26/2023 12/03/2023 Lpindkxqjfal22 ml magnesium sulfate 40 mg/ml injection (1 source)Start: 08-15-2024 End: g, intravenous, at 25 mL/hr, Administer over 2 Hours, Once, On Sun08/15/24 at 0310, For 1 dosemethylphenidate hydrochloride 20 mg oral tablet (12 sources)Central Nervous System StimulantStart: 08-23-2023 End: 10-60-8537hdml 1 tablet by mouth once daily at bedtimeRitalin 20 mg oral tablet 40 EA, 0 Refill(s), TAKE 1 TABLET BY MOUTH EVERY MORNING AND 1 TABLET EVERY NIGHT AT BEDTIME, Refills(s) 0 Start Date: 09/13/23 Status: OrderedStart: 27-89-3840lcqm 1 tablet by mouth twice dailyRitalin 20 mg oral tablet 20 mg = 1 tab(s), Oral, BID, Refills(s) 0, Other (see comment) Start Date: 09/09/19 Status: OrderedmetroNIDAZOLE 500 mg oral tablet (2 sources)Nitroimidazole AntimicrobialStart: 01-16-2024 End: 72-85-2193ypno 1 tablet by mouth in the morningmetroNIDAZOLE (Flagyl) 500 MG tablet Indications: Vaginal odor Take 1 tablet (500 mg) by mouth in the morning and 1 tablet (500 mg) before bedtime. Do all this for 7 days. 14 tablet 01/16/2024 01/23/2024 Expired1 ml morphine sulfate 4 mg/ml injection (2 sources)Opioid AgonistStart: 07-20-2023 End: mg, intravenous, Once, On Sun07/20/23 at 1815, For 1 lnjl809 ml potassium chloride 0.2 meq/ml injection (1 source)Start: 08-15-2024 End: 72-59-1961tlwb 20 mEq intravenously every two hours20 mEq, intravenous, at 50 mL/hr, Administer over 2 Hours, Every 2 hours, First dose on Sun08/15/24at 0310, For 2 doses, Total dose is 40 mEq via peripheral line.promethazine (Phenergan) 12.5 mg in sodium chloride 0.9% 50 mL IV (2 sources)Start: 08-15-2024 End: 64-08-686258.5 mg, intravenous, Administer over 15 Minutes, Once, On Sun08/15/24 at 1015, For 1 doseStart: 08-13-2024 End: 27-64-917159.5 mg, intravenous, Administer over 15 Minutes, Once, On Sun08/13/24 at 1050, For 1 qfzy9236 ml sodium chloride 9 mg/ml injection (1 source)Start: 08-13-2024 End: ,000 mL, intravenous, at 999 mL/hr, Administer over 1 Hours, Once, On Sun08/13/24 at 0930, For 1 doseubidecarenone 100 mg / vitamin e 5 unt oral capsule (3 sources)Start: 02-21-2024 End: 33-74-3836sxsn 1 capsule by mouth once dailycoenzyme Q-10 100 MG capsule Indications: Female infertility , Fallopian tube disorder , Anovulation Take 1 capsule (100 mg) by mouth Daily 30 capsule 3 02/21/2024 03/22/2024 Problems Active Problems Problem ClassificationProblemDateDocumented DateEpisodic/ChronicAbdominal pain (20 sources)Pain in pelvis; Translations: [Visceral abdominal pain]Onset: 293070-12-9466KnmyggnzRdwlutahx pain (1 source)Pelvic and perineal pain; Translations: [PELVIC AND PERINEAL PAIN] Onset: 23-98-0852Vkjbate disorders (20 sources)Anxiety disorder, unspecified; Translations: [Anxiety]Onset: 828157-42-6137JguldcxJestcd (20 sources)Unspecified asthma, uncomplicated; Translations: [Asthma]Onset: 316899-04-6694HffpwbnGtaaugvsw-ctjfycq, conduct, and disruptive behavior disorders (11 sources)Attention deficit hyperactivity cvegnvwu25-63-7547HqaytddHcqvdshbm- deficit, conduct, and disruptive behavior disorders (20 sources)Attention deficit hyperactivity disorder, combined type; Translations: [Attention-deficit hyperactivity disorder, combined type]Onset: 743900-96-9847MlbbleeMyynqg of cervix (11 sources)Malignant tumor of vujhet02-41-2590AprjlznYgzxcrgtlzfej and procreative management (8 sources)Encounter for assisted reproductive fertility procedure cycle; Translations: [Patient encounter status]Onset: 522892-33-4823Iyirwjxi Deficiency and other anemia (13 sources)Anemia; Translations: [Anemia, unspecified]49-98-0524Ynkfiirs Endometriosis (12 sources)Endometriosis of pelvic peritoneum; Translations: [Endometriosis (clinical)]Onset: 368359-09-4909KhnwiczCjrhmhqqdv disorders (4 sources)Gastroesophageal reflux disease; Translations: [Gastro-esophageal reflux disease without esophagitis]Onset: 393230-72-1739ZuswzohYbteqyisur disorders (13 sources)Esophagitis; Translations: [Esophagitis, unspecified without bleeding]Onset: 66-69-4984MlhvpkweUvsrue infertility (20 sources)Female infertility; Translations: [Female infertility, unspecified] Onset: 108607-31-8618LynabvnXuqxe and electrolyte disorders (1 source)Hypokalemia; Translations: [Hypokalemia]Onset: 56-58-4824Wttugnez Headache; including migraine (1 source)Cyclical vomiting -12-1936WylmpcjJqkcjkqfdm during ; abruptio placenta; placenta previa (2 sources)Antepartum hemorrhage; Translations: [Hemorrhage in early , unspecified]87-35-9706NxrlzdjmYszygznsfhq (2 sources)Hemorrhoids; Translations: [Unspecified hemorrhoids]12-16-2024 EpisodicImmunizations and screening for infectious disease (2 sources)Exposure to sexually transmissible disorder; Translations: [Contact with and (suspected) exposure to infections with a predominantly sexual mode of transmission]94-47-7365XrdonxvdGfajeinoqsvu diseases of female pelvic organs (1 source)Chronic salpingitis; Translations: [CHRONIC SALPINGITIS]Onset: 14-36-8785RvcomfdLwqhdrz and fatigue (11 sources)Eofstln56-32-1190LyslvscrEmcacqqdcdj; malpresentation (2 sources)Breech presentation; Translations: [Maternal care for breech presentation, not applicable or unspecified]80-32-3549JojydiubQphxiejej disorders (16 sources)Excessive and frequent menstruation with regular cycle; Translations: [Amenorrhea]Onset: 768998-71-4675JpaogxjSfbfpxmemquyy mental health disorders (12 sources)Psychosomatic factor in physical condition; Translations: [Psychological and behavioral factors associated with disorders or diseases classified elsewhere]Onset: 83-36-5408AkcnjvrIgec disorders (20 sources)Bipolar disorder, unspecified; Translations: [Bipolar disorder] Onset: 45-51-4663TnchpsfVusrcx and vomiting (20 sources)Nausea and vomiting; Translations: [Nausea with vomiting, unspecified]Onset: 484501-02-1015GjridyrjZvcxumcbsdu chest pain (4 sources)Chest pain; Translations: [Chest pain, unspecified]Onset: 08-14-2024 30-70-5553MaojgsqoUspoa acquired deformities (13 sources)Acquired jlaqshcra48-07-1365HnjpifwBuaom aftercare (1 source)Other chcf (current) drug therapy; Translations: [OTH NURSING HOME CURRENT DRUG THERAPY]Onset: 28-92-5630SjogeskxHuctg aftercare (1 source)Long-term current use of drug therapy; Translations: [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]Onset: 91-87-2633BxymaipdQgyjj aftercare (2 sources)Post-discharge follow-up; Translations: [Encounter for follow-up examination after completed treatment for conditions other than malignant neoplasm]26-91-1262GuuyaknnImtux and unspecified benign neoplasm (12 sources)Prolactinoma; Translations: [Benign neoplasm of pituitary gland] 99-28-6232XkkvghtuHjadx and unspecified benign neoplasm (1 source)Benign neoplasm of pituitary gland; 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)] Onset: 56-51-1157RrllbulvYgwwh complications of (1 source)Mild hyperemesis gravidarum; Translations: [Mild hyperemesis gravidarum]Onset: 62-40-1039UwijyfxkRgjcc complications of (6 sources)Low maternal weight gain; Translations: [Low weight gain in , second trimester]19-48-7823SukueqnhVjumo complications of (1 source)Bipolar disorder; Translations: [Other mental disorders complicating , second trimester]50-60-6675LeouvrhzTugdn complications of (1 source)Other mental disorders complicating , unspecified trimester; Translations: [Mental disorders of mother, antepartum condition or complication] 70-27-6422GqtghezlLtzox complications of (3 sources)Vomiting of , unspecified; Translations: [Unspecified vomiting of , unspecified as to episode of care or not applicable] Onset: 856826-51-3061VmokwdxqPpdfc disorders of stomach and duodenum (1 source)Cyclical vomiting syndrome; Translations: [Cyclical vomiting syndrome unrelated to migraine]90-94-6872UaykzlnqVjhdh endocrine disorders (12 sources)Disorder of pituitary gland; Translations: [Disorder of pituitary gland, unspecified]73-30-1385CiqgbpvQwezl endocrine disorders (1 source)Disorder of pituitary gland, unspecified; Translations: [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HCC)]Onset: 75-52-7521MgkygowOycsz female genital disorders (11 sources)Abnormal uterine rmpgnfqo88-76-5011EbqfopvYlezf female genital disorders (2 sources)Vaginal odor; Translations: [Other specified noninflammatory disorders of vagina]98-98-2170AppdughkMfxts gastrointestinal disorders (12 sources)Heartburn; Translations: [Heartburn]Onset: 90-23-6937NeoqxbjkKaezp gastrointestinal disorders (1 source)Functional disorder of intestine; Translations: [Other specified functional intestinal disorders]Onset: 40-51-1125SosvouozIsnuj non-traumatic joint disorders (1 source)Other specified arthritis, left hip; Translations: [OTHER SPECIFIED ARTHRITIS LEFT HIP]Onset: 67-20-0331FeknwtfByelj non-traumatic joint disorders (1 source)Other specified arthritis, right hip; Translations: [OTHER SPECIFIED ARTHRITIS RIGHT HIP]Onset: 89-98-4539QpyduqhCzuax non-traumatic joint disorders (11 sources)Bilateral arthritis of sacroiliac -84-6083RgiabxgMredf nutritional; endocrine; and metabolic disorders (1 source)Abnormal weight loss; Translations: [Abnormal weight loss]Onset: 01-54-9631FiqwogwoJzdnq and delivery including normal (17 sources)Normal ; Translations: [Encounter for supervision of normal , unspecified, first trimester]Onset: 99-16-3862UwplzktiAtgto upper respiratory disease (11 sources)Chronic lbboacws84-74-2269XnxopouTtlmb upper respiratory disease (11 sources)Seasonal allergic bcfyynry20-86-0269MarranmKgigi upper respiratory disease (13 sources)Vocal cord yxbsenpxevq74-14-5843DpmwmjhqPnnpdfamjbwapq and other problems of amniotic cavity (2 sources)Subchorionic hematoma; Translations: [Other specified disorders of amniotic fluid and membranes, first trimester, not applicable or unspecified] 11-39-5733CgptfenqBgxnhkhe codes; unclassified (4 sources)Procedure and treatment not carried out, unspecified reason; Translations: [PROC AND TX NOT CARRIEDOUT UNS REASON]Onset: 50-51-2409Weeehkju Residual codes; unclassified (11 sources)History of wikwtcqsiyl26-25-9853GscrtayhTaiwnsat codes; unclassified (2 sources)Gestation period, 11 weeks; Translations: [11 weeks gestation of ]26-75-6140WfvmljzrKmfndvzu codes; unclassified (4 sources)Gestation period, 15 weeks; Translations: [15 weeks gestation of ]Onset: 515588-55-5872MmhvwvphXejnnbtu codes; unclassified (2 sources)Gestation period, 14 weeks; Translations: [14 weeks gestation of ]Onset: 831340-83-2416CklmcuzjXuiyldlv codes; unclassified (1 source)15 weeks gestation of ; Translations: [15 weeks gestation of ([facility])]Onset: 93-30-5298TkuebekrUmqbyssj codes; unclassified (6 sources)Gestation period, 16 weeks; Translations: [16 weeks gestation of ]20-88-3706IqqawshlWvuzaloq codes; unclassified (2 sources)Gestation period, 20 weeks; Translations: [20 weeks gestation of ]42-02-8225UdmxfpviAyxjmuiv codes; unclassified (2 sources)Gestation period, 23 weeks; Translations: [23 weeks gestation of ]02-77-8887KbdukhuzEucuhtqb codes; unclassified (2 sources)Gestation period, 27 weeks; Translations: [27 weeks gestation of ]27-64-3959UkltcbxjFkeatngd codes; unclassified (2 sources)Gestation period, 29 weeks; Translations: [29 weeks gestation of ]19-67-8526MoqblzwtAwgcbvoh codes; unclassified (1 source)Gestation period, 30 weeks; Translations: [30 weeks gestation of ]77-31-3429FsejonfwZyjdofov codes; unclassified (1 source)30 weeks gestation of ; Translations: [30 weeks gestation of ]Onset: 97-22-3493KcszbkxaWvvxbrwc codes; unclassified (2 sources)Gestation period, 31 weeks; Translations: [31 weeks gestation of ]96-58-9969JnijfawwTngwhvkw codes; unclassified (2 sources)Gestation period, 33 weeks; Translations: [33 weeks gestation of ]81-83-6717IcwoswvmSfijanbgzyz; intervertebral disc disorders; other back problems (11 sources)Acnhtnph81-60-1331KmilamdjWzuesuhfhkc (11 sources)Gesdfstymis38-17-3328MidqwhdqTmpuijkdy-yxcyhep disorders (2 sources)Cannabis abuse; Translations: [Cannabis abuse with other cannabis- induced disorder]Onset: 01-03-7641RnedulqHejkwxs on above:Added secondary to documentation in Social History.Unclassified (1 source)COVID-19; Translations: [COVID-19]Onset: 75-36-9715Jbnktfjjlotq (15 sources)PregnancyOnset: 09-12-2012 Resolved: 384692-56-4772Obakolcatizd (1 source)Maternal care for other (suspected) abnormality and damage, genitourinary anomalies, not applicable or unspecified; Translations: [Maternal care for other (suspected) abnormality and damage, genitourinary anomalies, not applicable or unspecified]Onset: 09-03-2024 Unclassified (1 source)IVF pregnancyOnset: 80-87-1723Mrzmlxjziekp (1 source)Med ManagementOnset: 09-02-2024 Past or Other Problems Problem ClassificationProblemDateDocumented DateEpisodic/ChronicGastritis and duodenitis (14 sources)Gastritis; Translations: [Gastritis, unspecified, without bleeding] Onset: 711352-23-0555FzdsgruqRjdqjmxsedepa symptoms and ill-defined conditions (20 sources)Proteinuria; Translations: [Proteinuria, unspecified]Onset: 917022-70-0103RhlzykwuLtnnknamobxy diseases of female pelvic organs (12 sources)Female pelvic peritoneal adhesions (postinfective); Translations: [Chronic vaginitis]Onset: 617635-22-1203YxlyivomVzvdb and unspecified benign neoplasm (11 sources)Benign neoplasm of pituitary glandOnset: EpisodicOther complications of ; puerperium affecting management of mother (20 sources)Anomaly of kidney; Translations: [ renal anomaly, single gestation]Onset: 059954-21-8576TsoxqfkdIhpjz complications of (20 sources)Hyperemesis gravidarum; Translations: [Mild hyperemesis gravidarum] Onset: 137294-05-6629FutknrduKpxdw complications of (20 sources)Placenta circumvallata; Translations: [Circumvallate placenta, second trimester]Onset: 704270-34-4385SutilratIzdtk complications of (20 sources)Conceived by in vitro fertilization; Translations: [Supervision of resulting from assisted reproductive technology, second trimester] Onset: 203832-19-8142SosggpbxHtqjn complications of (3 sources)Mild hyperemesis gravidarum; Translations: [Mild hyperemesis gravidarum]Onset: 81-37-9596NuzeeolqUblfb complications of (1 source)Circumvallate placenta, second trimester; Translations: [Circumvallate placenta, second trimester]Onset: 30-99-5958UlgtiapfZudch complications of (2 sources)Low weight gain in , second trimester; Translations: [Low weight gain in , secondtrimester]Onset: 93-36-4997JywvclqoNuuor connective tissue disease (20 sources)Muscle pain; Translations: [Myalgia, unspecified site]Onset: 221933-74-2728SxokavjnJkxni female genital disorders (20 sources)Fallopian tube disorder; Translations: [Noninflammatory disorder of ovary, fallopian tube and broadligament, unspecified]Onset: 014905-15-1928 EpisodicOther nutritional; endocrine; and metabolic disorders (12 sources)Weight lossOnset: 929660-07-9411LlsbcpoiUvrpe screening for suspected conditions (not mental disorders or infectious disease) (20 sources)Increased prolactin level; Translations: [Other specified abnormal findings of blood chemistry]Onset: 784177-76-1696IhtjdzddAoegrxui codes; unclassified (2 sources)16 weeks gestation of ; Translations: [16 weeks gestation of ]Onset: 01-15-5702XxsafuiiRnpugplad-related disorders (20 sources)Marijuana user; Translations: [Drug use complicating , unspecified trimester]Onset: 536209-61-1222ObdpvgteRithwdnncszj (2 sources)Patient encounter kdigus07-13-4999Dmtwqkdbmskp (1 source)Nausea and vomiting during zajylmjxn61-70-2775 Results Test NameValueInterpretationReference RangeFacilityInpatient Clinical Summaryon 42-08-0399Bsjdpdvdm Clinical SummaryInpatient Clinical Summary [place] [id number] Clinical Summary Person Information Name: INDU JORGENSEN Alba/[facility] Age: 29 Years : 1995 Sex: Female PCP: Yasmin WELCH DO Marital Status: Phone: [phone] Race: White Ethnicity: Non- or Language: Polish Visit Id: Visit Reason: Speciality: Acuity: Enc Type: Outpatient Med Service: Obstetrics Arrival: 01/12/2025 07:29:12 Discharge: 01/12/2025 08:11:41 Dispo Type: Home (Routine DC) Address: [facility] [address] [id number] Provider Notes: Diagnosis: Problems Active Smoker (07/03/2024) [...] By Mouth every day. multivitamin, ( 19 ([place])) Oral. pantoprazole (Pantoprazole [address] Tab) 1 Tablets By Mouth. quetiapine (SEROquel 50 mg ER Tab) 2 Tablets By Mouth at bedtime. Care Team Members: Attending Physician: Uriel MEADE DO Consulting Physician: Referring Physician: Follow up: Type Location Start [facility] [place] (FT) FT.ULTRASOUND 01/15/2025 10:00 AM 01/15/2025 11:00 AM Confirmed Patient Education Information:[facility] Patient Summaryon 95-16-8930Pyjqgqlmj Patient SummaryInpatient Patient Summary [place] [address] Patient Discharge Instructions PERSON INFORMATION Name: INDU JORGENSEN Date of : 1995 Current Date: 01/12/2025 08:11:59 PHYSICIANS Admitting Physician: Uriel EMADE DO Primary Care Physician: Yasmin WELCH DO PCP Phone Number: [phone] Comment: Discharge Diagnosis: Condition at Discharge: Stable [...] a nearby participating provider. Type Location Start [facility] [place] (FT) FT.ULTRASOUND 01/15/2025 10:00 AM 01/15/2025 11:00 AM Confirmed Comment: JAMEEL Nichole, INDU ALDRIDGE, have received the attached patient education materials/instructions and have verbalized understanding. Patient Signature Date Clinican/Nurse Signature Date MEDICATION LIST Medications to Continue with No Changes Other Medications carbonyl iron (Iron Chews) 15 Milligram By Mouth every day. Last Dose: Next Dose: multivitamin, ( 19 ([place])) Oral. Last Dose: Next Dose: pantoprazole (Pantoprazole [...] yet, please contact Health Information Management at [phone] to get signed up today. NATALIE Award [...] available as needed. Thank you for choosing [facility]In[facility] Clinical Summaryon 11-11-2369Whwrhhdvk Clinical Summary Inpatient Clinical Summary [address] [address] Clinical Summary Person Information Name: INDU JORGENSEN Alba/[facility] Age: 29 Years : 1995 Sex: Female PCP: Yasmin WELCH DO Marital Status: Phone: [phone] Race: White Ethnicity: Non- or Language: Polish Visit Id: Visit Reason: NST Speciality: Acuity: Enc Type: Outpatient Med Service: Obstetrics Arrival: 01/08/2025 08:35:14 Discharge: 01/08/2025 09:25:00 Dispo Type: Home (Routine DC) Address: [address] [place] [phone] Provider Notes: Diagnosis: Problems Active Smoker (07/03/2024) [...] By Mouth every day. multivitamin, ( 19 ([place])) Oral. pantoprazole (Pantoprazole [address] Tab) 1 Tablets By Mouth. quetiapine (SEROquel 50 mg ER Tab) 2 Tablets By Mouth at bedtime. Care Team Members: Attending Physician: Uriel MEADE DO Consulting Physician: Referring Physician: Follow up: Type Location Start [facility] [place] (FT) FT.ULTRASOUND 01/15/2025 10:00 AM 01/15/2025 11:00 AM Confirmed Patient Education Information:[facility] Patient Summaryon 23-49-4217Rnpkqimzi Patient SummaryInpatient Patient Summary [place] [id number] Patient Discharge Instructions PERSON INFORMATION Name: INDU JORGENSEN Date of : 1995 Current Date: 01/08/2025 09:40:30 PHYSICIANS Admitting Physician: Uriel MEADE DO Primary Care Physician: Yasmin WELCH DO PCP Phone Number: [phone] Comment: Discharge Diagnosis: Condition at Discharge: Stable [...] Last Dose: Next Dose: multivitamin, ( 19 ([place])) Oral. Last Dose: Next Dose: pantoprazole (Pantoprazole [address] Tab) 1 Tablets By Mouth. Last Dose: Next Dose: quetiapine (SEROquel 50 mg ER Tab) 2 Tablets By Mouth at bedtime. Last Dose: Next Dose: PATIENT EDUCATION INFORMATION Instructions: Medication Leaflets: You may receive a survey from [employer] asking you to rate your care experience. [...] signed up for this yet, please contact [employer] at [phone] to get signed up today. NATALIE Award [...] available as needed. Thank you for choosing [facility]US Biophysical Profile w/ Non-Stron 05-96-1773GH Biophysical Profile w/ Non-StrExam Date/Time: 01/08/2025 08:47 [...] Arun Bhatia MD Transcribed by: JURGEN Technologist: [facility]bleInpatient Clinical Summaryon 52-25-2543Krveawdil Clinical SummaryInpatient Clinical Summary [address] [address] Clinical Summary Person Information Name: INDU JORGENSEN [place]/[facility] Age: 29 Years : 1995 Sex: Female PCP: Yasmin WELCH DO Marital Status: Phone: [phone] Race: White Ethnicity: Non- or Language: Polish Visit Id: Visit Reason: NST Speciality: Acuity: Enc Type: Outpatient Med Service: Obstetrics Arrival: 01/05/2025 07:29:29 Discharge: 01/05/2025 08:15:47 Dispo Type: Home (Routine DC) Address: [address] [place] [phone] Provider Notes: Diagnosis: Problems Active Smoker (07/03/2024) [...] By Mouth every day. multivitamin, ( 19 ([place])) Oral. pantoprazole (Pantoprazole [address] Tab) [...] AM 01/15/2025 11:00 AM Confirmed Patient Education Information:[facility]In[facility] Patient Summaryon 16-02-8458Lnfxsicnu Patient SummaryInpatient Patient Summary [address] [address] Patient Discharge Instructions PERSON INFORMATION Name: INDU JORGENSEN Date of : 1995 Current Date: 01/05/2025 08:31:07 PHYSICIANS Admitting Physician: Uriel MEADE DO Primary Care Physician: Yasmin WELCH DO PCP Phone Number: [phone] Comment: Discharge Diagnosis: Condition at Discharge: Stable [...] Last Dose: Next Dose: multivitamin, ( 19 ([place])) Oral. Last Dose: Next Dose: pantoprazole (Pantoprazole [address] Tab) 1 Tablets By Mouth. Last Dose: Next Dose: quetiapine (SEROquel 50 mg ER Tab) 2 Tablets By Mouth at bedtime. Last Dose: Next Dose: PATIENT EDUCATION INFORMATION Instructions: Medication Leaflets: You may receive a survey from [employer] asking you to rate your care experience. [...] signed up for this yet, please contact [employer] at [phone] to get signed up today. NATALIE Award [...] available as needed. [facility] Clinical Summaryon [id number] Clinical Summary Inpatient Clinical Summary [place] [id number] Clinical Summary Person Information Name: INDU JORGENSEN Alba/[facility] Age: 29 Years : 1995 Sex: Female PCP: Yasmin WELCH DO Marital Status: Phone: [phone] Race: White Ethnicity: Non- or Language: Polish Visit Id: Visit Reason: nst Speciality: Acuity: Enc Type: Outpatient Med Service: Obstetrics Arrival: 01/01/2025 10:33:00 Discharge: 01/01/2025 11:03:00 Dispo Type: Home (Routine DC) Address: [address] [place] [address] [id number] Provider Notes: Diagnosis: Problems Active Smoker (07/03/2024) [...] By Mouth every day. multivitamin, ( 19 ([place])) Oral. pantoprazole (Pantoprazole [address] Tab) [...] AM 01/15/2025 11:00 AM Confirmed Patient Education Information:[facility] Patient Summaryon [id number] Patient SummaryInpatient Patient Summary [place] [address] Patient Discharge Instructions PERSON INFORMATION Name: INDU JORGENSEN Date of : 1995 Current Date: 01/01/2025 11:26:10 PHYSICIANS Admitting Physician: Uriel MEADE DO Primary Care Physician: Yasmin WELCH DO PCP Phone Number: [phone] Comment: Discharge Diagnosis: Condition at Discharge: Stable [...] nearby participating provider. Type Location Start [facility] [place] ([place]) FT.ULTRASOUND 01/08/2025 10:00 AM 01/08/2025 [...] Last Dose: Next Dose: multivitamin, ( 19 ([place])) Oral. Last Dose: Next Dose: pantoprazole (Pantoprazole [...] signed up for this yet, please contact [employer] at [phone] to get signed up today. NATALIE Award [...] available as needed. [facility] you [facility] choosing [facility]University [facility] CenterUS Biophysical Profile w/ Non-Stron [id number] Biophysical Profile w/ Non-StrExam Date/Time: 01/01/2025 10:39 [...] MEADE FINAL REPORT Dictated: 01/01/2025 4:56 pm Aurn Bhatia MD Signed (Electronic Signature): 01/01/2025 4:56 pm Signed by: Arun Bhatia MD Transcribed by: JURGEN Technologist: RamónPrem[facility] FOLLOW UP TRANSABDOMINAL APPROACHon [id number] OB FOLLOW UP TRANSABDOMINAL APPROACH FINDINGS: A [...] Delivery: 02/12/25 Gestational Age as of 12/16/2024: 91l4hGhyrweygep macro (dipstick) panel (U)on [id number], UANegativeNegative - 4(70) +++ mg/dLNOMS HealthcareBlood, UANegativeNegative [...] 12 mg/dLNOMS HealthcareNOMS Healthcare Inpatient Clinical Summaryon [id number] Clinical SummaryInpatient Clinical Summary [place] [id number] Clinical Summary Person Information Name: INDU JORGENSEN Alba/[facility] Age: 29 Years : 1995 Sex: Female PCP: Yasmin WELCH DO Marital Status: Phone: [phone] Race: White Ethnicity: Non- or Language: Polish Visit Id: Visit Reason: NST Speciality: Acuity: Enc Type: Outpatient Med Service: Obstetrics Arrival: 12/29/2024 07:35:37 Discharge: 12/29/2024 08:15:00 Dispo Type: Home (Routine DC) Address: [address] [place] [address] [phone] Provider Notes: Diagnosis: Problems Active Smoker (07/03/2024) [...] By Mouth every day. multivitamin, ( 19 ([place])) Oral. pantoprazole (Pantoprazole [address] Tab) [...] AM 01/15/2025 11:00 AM Confirmed Patient Education Information:[facility] HospitalIn[facility] Patient Summaryon 93-41-5011Rdghbckgn Patient SummaryInpatient Patient Summary [place] [id number] Patient Discharge Instructions PERSON INFORMATION Name: INDU JORGENSEN Date of : 1995 Current Date: 12/29/2024 09:06:08 PHYSICIANS Admitting Physician: Primary Care Physician: Yasmin WELCH DO PCP Phone Number: [phone] Comment: Discharge Diagnosis: Condition at Discharge: Stable [...] Last Dose: Next Dose: multivitamin, ( 19 ([place])) Oral. Last Dose: Next Dose: pantoprazole (Pantoprazole [...] signed up for this yet, please contact [employer] at [phone] to get signed up today. NATALIE Award [...] available as needed. [facility]In[facility] Clinical Summaryon 44-54-5560Uzdxkydji Clinical Summary Inpatient Clinical Summary [address] [address] Clinical Summary Person Information Name: INDU JORGENSEN [facility] Age: 29 Years : 1995 Sex: Female PCP: Yasmin WELCH DO Marital Status: Phone: [phone] Race: White Ethnicity: Non- or Language: Polish Visit Id: Visit Reason: nst Speciality: Acuity: Enc Type: Outpatient Med Service: Obstetrics Arrival: 12/25/2024 10:29:02 Discharge: 12/25/2024 11:10:00 Dispo Type: Home (Routine DC) Address: [address] [place] [address] [phone] Provider Notes: Diagnosis: Problems Active Smoker (07/03/2024) [...] By Mouth every day. multivitamin, ( 19 ([place])) Oral. pantoprazole (Pantoprazole [address] Tab) 1 Tablets By Mouth. quetiapine (SEROquel 50 mg ER Tab) 2 Tablets By Mouth at bedtime. Care Team Members: Attending Physician: Uriel MEADE DO Consulting Physician: Referring Physician: Follow up: Type Location Start [facility] [place] ([place]) FT.ULTRASOUND 01/01/2025 10:00 AM 01/01/2025 11:00 AM Confirmed [place] ([place] FT.ULTRASOUND 01/08/2025 10:00 AM 01/08/2025 11:00 AM Confirmed [place] ([place] FT.ULTRASOUND 01/15/2025 10:00 AM 01/15/2025 11:00 AM Confirmed Patient Education Information:[facility] HospitalIn[facility] Patient Summaryon 34-39-3881Arsubholz Patient SummaryInpatient Patient Summary [place] [id number] Patient Discharge Instructions PERSON INFORMATION Name: INDU JORGENSEN Date of : 1995 Current Date: 12/25/2024 11:39:29 PHYSICIANS Admitting Physician: Uriel MEADE DO Primary Care Physician: Yasmin WELCH DO PCP Phone Number: [phone] Comment: Discharge Diagnosis: Condition at Discharge: INDU [...] a nearby participating provider. Type Location Start [facility] [place] ([place]) FT.ULTRASOUND 01/01/2025 10:00 AM 01/01/2025 [...] Last Dose: Next Dose: multivitamin, ( 19 ([place])) Oral. Last Dose: Next Dose: pantoprazole (Pantoprazole [...] signed up for this yet, please contact [employer] at [phone] to get signed up today. NATALIE Award [...] available as needed. Thank you [facility] choosing [facility] NormalUniversity [facility] Beachwood [facility] CenterUS Biophysical Profile w/o N-Stron [id number] Biophysical Profile w/o N-StrExam Date/Time: 12/25/2024 10:33 [...] Arun Bhatia MD Transcribed by: JURGEN Technologist: [facility] CampusInpatient Clinical Summaryon 11-84-8989Rjoucezdv Clinical SummaryInpatient Clinical Summary [place] [id number] Clinical Summary Person Information Name: INDU JORGENSEN [facility] Age: 29 Years : 1995 Sex: Female PCP: Yasmin WELCH DO Marital Status: Phone: [phone] Race: White Ethnicity: Non- or Language: Polish Visit Id: Visit Reason: NST Speciality: Acuity: Enc Type: Outpatient Med Service: Obstetrics Arrival: 12/22/2024 07:38:18 Discharge: 12/22/2024 08:55:00 Dispo Type: Home (Routine DC) Address: [address] [place] [address] [id number] Provider Notes: Diagnosis: Problems Active Smoker (07/03/2024) [...] By Mouth every day. multivitamin, ( 19 ([place])) Oral. pantoprazole (Pantoprazole [address] Tab) [...] AM 01/15/2025 11:00 AM Confirmed Patient Education Information:[facility] HospitalIn[facility] Patient Summaryon 60-04-2944Sehmpgmrr Patient SummaryInpatient Patient Summary [address] [address] Patient Discharge Instructions PERSON INFORMATION Name: INDU JORGENSEN Date of : 1995 Current Date: 12/22/2024 09:03:01 PHYSICIANS Admitting Physician: Uriel MEADE DO Primary Care Physician: Yasmin WELCH DO PCP Phone Number: [phone] Comment: Discharge Diagnosis: Condition at Discharge: INDU [...] Last Dose: Next Dose: multivitamin, ( 19 ([place])) Oral. Last Dose: Next Dose: pantoprazole (Pantoprazole [...] signed up for this yet, please contact [employer] at [phone] to get signed up today. NATALIE Award [...] available as needed. [facility] you [facility] choosing [facility] NormalUniversity Hospitals Beachwood Medical CenterUS Biophysical Profile w/o N-Stron [id number] Biophysical Profile w/o N-StrExam Date/Time: 12/18/2024 10:41 [...] Ordering Provider: Uriel MEADE FINAL REPORT Dictated: 12/19/2024 11:00 am Jade Payton DO Signed (Electronic Signature): 12/19/2024 11:00 am Signed by: Jade Payton DO Transcribed by: JURGEN Technologist: RamónHigh[facility] w/ Auto Diffon [id number] Absolute0.1 E9/LNormal0.0-0.2FCleveland Clinic [facility] Lodi HospitalComment on above:Performed By: #### [id number] #### [facility] [address], [place] [address]Rdqmcneyj/100 WBC (Bld)0.5 %Normal0.0-2.0[facility] Beachwood Medical CenterComment on above:Performed By: #### [id number] #### [facility] [address], [place] [address]Xtv Absolute0.1 E9/LNormal0.0-0.5FCleveland [facility] Comment on above:Performed By: #### [id number] #### [facility] [address], [place] [address]Rglilboumeb/100 WBC (Bld)0.5 %Normal0.0-8.0[facility] Beachwood Medical CenterComment on above:Performed By: #### [id number] #### [facility] [address] [place] [address] 69[address]Tunprufngww distribution width (RBC) [Ratio]15.5 %High10.9-14.2 [facility] Medical CenterComment on above:Performed By: #### [id number] #### [facility] [address] [place] [address]Tdhjqfsjaa (Bld) [Volume fraction]32.6 %Low34.0-46.0[facility] Medical CenterComment on above:Performed By: #### [id number] #### [facility] [address] [place] [address]Qqbelralge (Bld) [Mass/Vol]11.2 g/dLLow12.0-16.0[facility] Medical CenterComment on above:Performed By: #### [id number] #### [facility] [address] [place] [address] 09[address]Vpkrg Absolute1.9 E9/LNormal1.0-4.0[facility] Comment on above:Performed By: #### [id number] #### [facility] [address] [place] [address]33[address]Wuyxzsgxhqb/100 WBC (Bld)15.6 %Kqprwc21.0-50.0[facility] Medical CenterComment on above:Performed By: #### [id number] #### [facility] [address], [place] [address]UNV (RBC) [Entitic mass]31.0 lrSbfvrq80.0-34.0[facility] Medical CenterComment on above:Performed By: #### [id number] #### [facility] [address] [place] [address]26[address]IINM (RBC) [Mass/Vol]34.4 g/eNPjtfjr46.4-36.0[facility] Medical CenterComment on above:Performed By: #### [id number] #### [facility] [address] [place] [address] 91008IOU (RBC) [Entitic vol]90.2 kDZrffba81.0-100.0[facility] Medical CenterComment on above:Performed By: #### [id number] #### [facility] [address], [place] [address]Npsf Absolute0.5 E9/LNormal0.2-1.0[facility] Comment on above:Performed By: #### [id number] #### [facility] [address] [place] [address] 20163Ystesodgw/100 WBC (Bld)4.4 %Normal4.0-14.0[facility] Medical CenterComment on above:Performed By: #### [id number] #### [facility] [address], [place] [address]Ojjyho Absolute9.4 E9/LHigh2.0-7.5FC[facility] Comment on above:Performed By: #### [id number] #### [facility] [address] [place] [address] 12[address]Yepmhj Auto79.0 %High36.0-75.0[facility] Comment on above:Performed By: #### [id number] #### [facility] [address], [place] [address]Cczkdtrl223.0 E9/KQeaxzx464.0-500.0[facility] Comment on above:Performed By: #### [id number] #### [facility] [address], [place] [address]Qgihgpit mean volume (Bld) [Entitic vol]7.2 fLNormal6.4-10.8 [facility] Medical CenterComment on above:Performed By: #### [id number] #### [facility] [address] [place] [address] [place] [address]EUN8.6 E12/LLow4.3-5.9[facility] Medical CenterComment on above:Performed By: #### [id number] #### [facility] [address] [place] [address]SQG47.9 E9/LHigh4.0-11.0[facility] Medical CenterComment on above:Performed By: #### [id number] #### [facility] [address] [place] [address] 25[address]Ysghqlzew Clinical Summaryon [id number] Clinical SummaryInpatient Clinical Summary [address] [address] Clinical Summary Person Information Name: INDU JORGENSEN Alba/[facility] Age: 29 Years : 1995 Sex: Female PCP: Yasmin WELCH DO Marital Status: Phone: [phone] Race: White Ethnicity: Non- or Language: Polish Visit Id: Visit Reason: NST Speciality: Acuity: Enc Type: Outpatient Med Service: Obstetrics Arrival: 12/18/2024 10:34:07 Discharge: 12/18/2024 11:47:23 Dispo Type: Home (Routine DC) Address: [address] [place] [address] [phone] Provider Notes: Diagnosis: Problems Active Smoker (07/03/2024) [...] By Mouth every day. multivitamin, ( 19 ([place])) Oral. pantoprazole (Pantoprazole [address] Tab) [...] AM 01/15/2025 11:00 AM Confirmed Patient Education Information:[facility] HospitalInpatient Patient Summaryon 81-87-9930Cjtizygps Patient SummaryInpatient Patient Summary [place] [id number] Patient Discharge Instructions PERSON INFORMATION Name: JAMEEL INDUSARAH ALDRIDGE Date of : 1995 Current Date: 12/18/2024 11:47:34 PHYSICIANS Admitting Physician: Uriel MEADE DO Primary Care Physician: Yasmin WELCH DO PCP Phone Number: [phone] Comment: Discharge Diagnosis: Condition at Discharge: INDU [...] Last Dose: Next Dose: multivitamin, ( 19 ([place])) Oral. Last Dose: Next Dose: pantoprazole (Pantoprazole [address] Tab) 1 Tablets By Mouth. Last Dose: Next Dose: quetiapine (SEROquel 50 mg ER Tab) 2 Tablets By Mouth at bedtime. Last Dose: Next Dose: PATIENT EDUCATION INFORMATION Instructions: Medication Leaflets: You may receive a survey from [employer] asking you to rate your care experience. [...] signed up for this yet, please contact [employer] at [phone] to get signed up today. NATALIE Award [...] available as needed. [facility] choosing [facility] NormalUniversity Hospitals Beachwood Medical CenterUrinalysis macro (dipstick) panel (U)on 09-07-2065Ihpiajlbg, UA NegativeNegative - 4(70) +++ mg/dLNOMS HealthcareBlood, [...] - 12 mg/dLNOMS HealthcareNOMS HealthcareInpatient Clinical Summaryon 41-94-9099Bxfaiekcu Clinical SummaryInpatient Clinical Summary [address] [address] Clinical Summary Person Information Name: INDU JORGENSEN Al[place]/[facility] Age: 29 Years : 1995 Sex: Female PCP: Yasmin WELCH DO Marital Status: Phone: [phone] Race: White Ethnicity: Non- or Language: Polish Visit Id: Visit Reason: NST Speciality: Acuity: Enc Type: Outpatient Med Service: Obstetrics Arrival: 12/15/2024 07:30:22 Discharge: 12/15/2024 08:30:00 Dispo Type: Home (Routine DC) Address: [address] [place] [address] [id number] Provider Notes: Diagnosis: Problems Active Smoker (07/03/2024) [...] #24 (twenty-four). Refills: 0. multivitamin, ( 19 ([place])) Oral. naloxone (naloxone 4 mg/0.1 mL nasal [...] AM 01/15/2025 11:00 AM Confirmed Patient Education Information:[facility] HospitalInpatient Patient Summaryon 63-02-8053Xdzdptvtw Patient SummaryInpatient Patient Summary [place] [id number] Patient Discharge Instructions PERSON INFORMATION Name: INDU JORGENSEN Date of : 1995 Current Date: 12/15/2024 08:36:10 PHYSICIANS Admitting Physician: Uriel MEADE DO Primary Care Physician: Yasmin WELCH DO PCP Phone Number: [phone] Comment: Discharge Diagnosis: Condition at Discharge: INDU [...] Last Dose: Next Dose: multivitamin, ( 19 ([place])) Oral. Last Dose: Next Dose: naloxone (naloxone [...] signed up for this yet, please contact [employer] at [phone] to get signed up today. NATALIE Award Nomination The NATALIE (Diseases A (more content not included)...[facility] HospitalInpatient Clinical Summaryon [id number] Clinical SummaryInpatient Clinical Summary [place] [address] Clinical Summary Person Information Name: INDU JORGENSEN [place]/[facility] Age: 29 Years : 1995 Sex: Female PCP: Yasmin WELCH DO Marital Status: Phone: [phone] Race: White Ethnicity: Non- or Language: Polish Visit Id: Visit Reason: nst Speciality: Acuity: Enc Type: Outpatient Med Service: Obstetrics Arrival: 12/11/2024 10:37:22 Discharge: 12/11/2024 11:10:00 Dispo Type: Home (Routine DC) Address: [address] [place] [address] [phone] Provider Notes: Diagnosis: Problems Active Smoker (07/03/2024) [...] #24 (twenty-four). Refills: 0. multivitamin, ( 19 ([place])) Oral. naloxone (naloxone 4 mg/0.1 mL nasal [...] AM 01/15/2025 11:00 AM Confirmed Patient Education Information:[facility] HospitalInpatient Patient Summaryon 81-10-2369Bxazkdbvi Patient SummaryInpatient Patient Summary [place] [id number] Patient Discharge Instructions PERSON INFORMATION Name: INDU JORGENSEN Date of : 1995 Current Date: 12/11/2024 11:16:48 PHYSICIANS Admitting Physician: Uriel MEADE DO Primary Care Physician: Yasmin WELCH DO PCP Phone Number: [phone] Comment: Discharge Diagnosis: Condition at Discharge: INDU [...] Last Dose: Next Dose: multivitamin, ( 19 ([place])) Oral. Last Dose: Next Dose: naloxone (naloxone [...] You may receive a survey from [employer] asking you to rate your care experience. [...] signed up for this yet, please contact [employer] at [phone] to get signed up today. NATALIE Award Nomination The NATALIE (Diseases At (more content not included)...[facility] HospitalUS Biophysical Profile w/ Non-Stron [id number] Biophysical Profile w/ Non-StrExam Date/Time: 12/11/2024 10:55 [...] Willi Barros MD Transcribed by: JURGEN Technologist: SeraUniversity Hospitals Beachwood Medical CenterInpatient Clinical Summaryon [id number] Clinical SummaryInpatient Clinical Summary [place] [id number] Clinical Summary Person Information Name: INDU JORGENSEN [place]/[facility] Age: 29 Years : 1995 Sex: Female PCP: Yasmin WELCH DO Marital Status: Phone: [phone] Race: White Ethnicity: Non- or Language: Polish Visit Id: Visit Reason: NST Speciality: Acuity: Enc Type: Outpatient Med Service: Obstetrics Arrival: 12/08/2024 07:19:54 Discharge: 12/08/2024 08:07:00 Dispo Type: Home (Routine DC) Address: [facility] [address] [facility] [id number] Provider Notes: Diagnosis: Problems Active Smoker (07/03/2024) [...] #24 (twenty-four). Refills: 0. multivitamin, ( 19 ([place])) Oral. naloxone (naloxone 4 mg/0.1 mL nasal [...] Referring Physician: Follow up: With: Address: When: [facility], [address] [place] [address] , [place] [address] [facility] (1) In 8 days 12/16/2024 Comments: Call [...] AM 01/15/2025 11:00 AM Confirmed Patient Education Information:[facility] HospitalInpatient Patient Summaryon [id number] Patient SummaryInpatient Patient Summary [address] [address] Patient Discharge Instructions PERSON INFORMATION Name: INDU JORGENSEN Date of : 1995 Current Date: 12/08/2024 08:24:56 PHYSICIANS Admitting Physician: Saundra Verdugo MD Primary Care Physician: Yasmin WELCH DO PCP Phone Number: [phone] Comment: Discharge Diagnosis: Condition at Discharge: INDU [...] Follow up: With: Address: When: Uriel MEADE [facility], [address] [place] [address] [place] [address] [employer] In 8 days 12/16/2024 Comments: Call for [...] Last Dose: Next Dose: multivitamin, ( 19 ([place])) Oral. Last Dose: Next Dose: naloxone (naloxone [...] You may receive a survey from [employer] asking you to rate your care experience. Your feedback is important and will help us understand what we do well and how we can improve the quality of care we provide to you, your loved ones and our community. It???s an honor to serve you. Patient Portal You may access all of your results a (more content not included)...[facility] HospitalInpatient Clinical Summaryon 32-03-8785Rfmmhyrye Clinical SummaryInpatient Clinical Summary [place] [id number] Clinical Summary Person Information Name: INDU JORGENSEN [place]/[facility] Age: 29 Years : 1995 Sex: Female PCP: Yasmin WELCH DO Marital Status: Phone: [phone] Race: White Ethnicity: Non- or Language: Polish Visit Id: Visit Reason: NST Speciality: Acuity: Enc Type: Outpatient Med Service: Obstetrics Arrival: 12/04/2024 13:31:56 Discharge: 12/04/2024 14:20:00 Dispo Type: Home (Routine DC) Address: [address] [place] [address] [phone] Provider Notes: Diagnosis: Problems Active Smoker (07/03/2024) [...] #24 (twenty-four). Refills: 0. multivitamin, ( 19 ([place])) Oral. naloxone (naloxone 4 mg/0.1 mL nasal [...] AM 01/15/2025 11:00 AM Confirmed Patient Education Information:[facility] HospitalInpatient Patient Summaryon 16-07-6046Pborsdmcy Patient SummaryInpatient Patient Summary [place] [address] Patient Discharge Instructions PERSON INFORMATION Name: INDU JORGENSEN Date of : 1995 Current Date: 12/04/2024 14:46:17 PHYSICIANS Admitting Physician: Saundra Verduog MD Primary Care Physician: Yasmin WELCH DO PCP Phone Number: [phone] Comment: Discharge Diagnosis: Condition at Discharge: Stable [...] Last Dose: Next Dose: multivitamin, ( 19 ([place])) Oral. Last Dose: Next Dose: naloxone (naloxone [...] Leaflets: You may receive a survey from [employer] asking you to rate your care experience. [...] signed up for this yet, please contact [employer] at [phone] to get signed up today. NATALIE Award Nomination The NATLAIE (Diseases Attacking the Immune SYstem) Award (more content not included)...[facility] HospitalUS Biophysical Profile w/ Non-Stron [id number] Biophysical Profile w/ Non-StrExam Date/Time: 12/04/2024 13:34 [...] Arun Bhatia MD Transcribed by: JURGEN Technologist: [facility] Health CenterUrinalysis macro (dipstick) panel (U)on [id number], UANegativeNegative - 4(70) +++ mg/dLNOMS HealthcareBlood, UANegativeNegative [...] - 12 mg/dLNOMS HealthcareNOMS HealthcareInpatient Clinical Summaryon [id number] Clinical SummaryInpatient Clinical Summary [address] [address] Clinical Summary Person Information Name: INDU JORGENSEN [place]/[facility] Age: 29 Years : 1995 Sex: Female PCP: Yasmin WELCH DO Marital Status: Phone: [phone] Race: White Ethnicity: Non- or Language: Polish Visit Id: Visit Reason: NST Speciality: Acuity: Enc Type: Outpatient Med Service: Obstetrics Arrival: 12/01/2024 07:29:12 Discharge: 12/01/2024 08:18:00 Dispo Type: Home (Routine DC) Address: [address] [place] [address] [phone] Provider Notes: Diagnosis: Problems Active Smoker (07/03/2024) [...] #24 (twenty-four). Refills: 0. multivitamin, ( 19 ([place])) Oral. naloxone (naloxone 4 mg/0.1 mL nasal [...] AM 01/15/2025 11:00 AM Confirmed Patient Education Information:[facility] Patient Summaryon [id number] Patient SummaryInpatient Patient Summary [place] [address] Patient Discharge Instructions PERSON INFORMATION Name: INDU JORGENSEN Date of : 1995 Current Date: 12/01/2024 09:33:41 PHYSICIANS Admitting Physician: Uriel MEADE DO Primary Care Physician: Yasmin WELCH DO PCP Phone Number: [phone] Comment: Discharge Diagnosis: Condition at Discharge: INDU [...] Last Dose: Next Dose: multivitamin, ( 19 ([place])) Oral. Last Dose: Next Dose: naloxone (naloxone [...] You may receive a survey from Jonathon aCrlson asking you to rate your care experience. [...] signed up for this yet, please contact 2Checkout at [phone] to get signed up today. NATALIE Award No (more content not included)...[facility] Inpatient Clinical Summaryon [id number] Clinical SummaryInpatient Clinical Summary [address] [address] Clinical Summary Person Information Name: INDU JORGENSEN [place] Age: 29 Years : 1995 Sex: Female PCP: Yasmin WELCH DO Marital Status: Phone: [phone] Race: White Ethnicity: Non- or Language: Polish Visit Id: Visit Reason: O09.81 Speciality: Acuity: Enc Type: Recurring Med Service: Radiology Arrival: 11/27/2024 10:41:00 Discharge: 11/27/2024 11:10:00 Dispo Type: Home (Routine DC) Address: [address] [place] [address] [phone] Provider Notes: Diagnosis: Problems Active Smoker (07/03/2024) [...] #24 (twenty-four). Refills: 0. multivitamin, ( 19 ([place])) Oral. naloxone (naloxone 4 mg/0.1 mL nasal [...] AM 01/15/2025 11:00 AM Confirmed Patient Education Information:[facility]In[facility] Patient Summaryon 61-46-7557Hnsqleevg Patient SummaryInpatient Patient Summary [place] [id number] Patient Discharge Instructions PERSON INFORMATION Name: INDU JORGENSEN Date of : 1995 Current Date: 11/28/2024 08:08:00 PHYSICIANS Admitting Physician: Uriel MEADE DO Primary Care Physician: Yasmin WELCH DO PCP Phone Number: [phone] Comment: Discharge Diagnosis: Condition at Discharge: Stable [...] Last Dose: Next Dose: multivitamin, ( 19 ([place])) Oral. Last Dose: Next Dose: naloxone (naloxone [...] signed up for this yet, please contact 2Checkout at [phone] to get signed up today. DA (more content not included)...[facility] HospitalUS Biophysical Profile w/o N-Stron 14-92-9169AW Biophysical Profile w/o N-Str Exam Date/Time: 11/27/2024 [...] Arun Bhatia MD Transcribed by: JURGEN Technologist: OwenUniversity Hospitals Beachwood Medical CenterCapillary Glucose POCon 72-20-2643Byofsfk [Mass/Vol]84 mg/oIOmaxsv02-19RlphmvUniversity Hospitals Beachwood Medical CenterComment on above:Result Comment: Cleaned MeterPerformed By: #### [id number] #### [facility] [address], [place] [address]Dfi 1 Hron 10-36-4426Zdavlcq [Mass/Vol]179 mg/wOOphkoc28-522 [facility] Medical CenterComment on above:Performed By: #### [id number] #### [facility] [address], [place] [address]Dbt 2 Hron 38-46-5023Jpiqxgc [Mass/Vol]99 mg/yQOengew57-207 [facility] CenterComment on above:Performed By: #### [id number] #### [facility] [address], [place] [address]Fse 3 Hron 50-77-5276Selgahz [Mass/Vol]85 mg/fCHfengw31-432 [facility] Medical CenterComment on above:Performed By: #### [id number] #### [facility] [address], [place] [address]Mmm Fastingon 00-04-1423Fcjdwue [Mass/Vol]86 mg/dIKypsmz94-09 [facility] Medical CenterComment on above:Performed By: #### [id number] #### [facility] [address], [place] [address]Kyzbhakdl Clinical Summaryon 04-19-5319Nvwpvckdo Clinical SummaryInpatient Clinical Summary [address] [address] Clinical Summary Person Information Name: INDU JORGENSEN [place] Age: 29 Years : 1995 Sex: Female PCP: Yasmin WELCH DO Marital Status: Phone: [phone] Race: White Ethnicity: Non- or Language: Polish Visit Id: Visit Reason: NST Speciality: Acuity: Enc Type: Outpatient Med Service: Obstetrics Arrival: 11/24/2024 07:08:39 Discharge: 11/24/2024 07:46:00 Dispo Type: Home (Routine DC) Address: [address] [place] [address] [phone] Provider Notes: Diagnosis: Problems Active Smoker (07/03/2024) [...] #24 (twenty-four). Refills: 0. multivitamin, ( 19 ([place])) Oral. naloxone (naloxone 4 mg/0.1 mL nasal [...] AM 01/15/2025 11:00 AM Confirmed Patient Education Information:[facility]In[facility] Patient Summaryon [id number] Patient SummaryInpatient Patient Summary [place] [id number] Patient Discharge Instructions PERSON INFORMATION Name: INDU JORGENSEN Date of : 1995 Current Date: 11/24/2024 08:03:32 PHYSICIANS Admitting Physician: Uriel MEADE DO Primary Care Physician: Yasmin WELCH DO PCP Phone Number: [phone] Comment: Discharge Diagnosis: Condition at Discharge: INDU [...] Last Dose: Next Dose: multivitamin, ( 19 ([place])) Oral. Last Dose: Next Dose: naloxone (naloxone [...] not s (more content not included)...Normal [facility] CenterUS Biophysical Profile w/ Non-Stron 11-20-2024 [place] Biophysical [...] Bhatia MD Transcribed by: JURGEN Technologist: [facility] Trauma CenterUrinalysis macro (dipstick) panel (U)on 96-91-0535Awgnpgdtz, UANegativeNegative - 4(70) +++ mg/dLNOMS HealthcareBlood, UANegativeNegative - 50 Mick/mcLNOMS Healthcare Clarity, UAClearNOMS HealthcareColor, UAYellowNOMS HealthcareGlucose, UANegative Negative - 2000(110) ++++ mg/dLNOMS HealthcareInterpretation and review of laboratory resultsAbnormalNOMS HealthcareKetones, UANegativeNegative - 160(16) ++++ mg/dLNOAL HealthcareLeukocytes, UANegativeNegative - 500+++ Campos/mcLNOMS HealthcareNitrite, UANegativeNegative - PositiveNOMS HealthcarepH, UA6.55 - 9 NOMS HealthcareProtein, UAPositiveNegative - 2000(20) ++++ mg/dLNOMS Healthcare Spec Grav, UA1.0151 - 1.03NOMS HealthcareUrobilinogen, UA1.00.2 - 12 mg/dLNOMS HealthcareNOMS HealthcareCBC w/Indiceson 72-62-1969Pwmkfcmoyig distribution width (RBC) [Ratio]15.7 %High10.9-14.2Fisher [facility] Shock Trauma CenterComment on above:Performed By: #### [id number] #### [facility] [address], [place] [address]Feuhccdxua (Bld) [Volume fraction]31.4 %Low34.0-46.0[facility] Beachwood Medical CenterComment on above:Performed By: #### [id number] #### [facility] [address], [place] [address]Hzlyfwpyfh (Bld) [Mass/Vol]10.8 g/dLLow12.0-16.0[facility] Beachwood Medical CenterComment on above:Performed By: #### [id number] #### [facility] [address], [place] [address]VBD (RBC) [Entitic mass]30.0 paYccdux11.0-34.0[facility] Medical CenterComment on above:Performed By: #### [id number] #### [facility] [address], [place] [address]MVTW (RBC) [Mass/Vol]34.3 g/lAIwquer74.4-36.0[facility] Medical CenterComment on above:Performed By: #### [id number] #### [facility] [address], [place] [address]QZT (RBC) [Entitic vol]87.6 iPQaonau57.0-100.0[facility] Medical CenterComment on above:Performed By: #### [id number] #### [facility] [address], [place] [address]Jltjufem912.0 E9/CWfvlfd358.0-500.0[facility] Comment on above:Performed By: #### [id number] #### [facility] [address], [place] [address]Cmdehvkh mean volume (Bld) [Entitic vol]7.2 fLNormal6.4-10.8 [facility] Medical CenterComment on above:Performed By: #### [id number] #### [facility] [address], [place] [address]PWD3.6 E12/LLow4.3-5.9[facility] Medical CenterComment on above:Performed By: #### [id number] #### [facility] [address], [place] [address]XUQ morphology finding Nom (Bld)NORMALInvalid Interpretation CodeUniversity Hospitals Beachwood Medical CenterComment on above:Performed By: #### [id number] #### [facility] [address], [place] [address]ULA65.8 E9/LNormal4.0-11.0[facility] Medical CenterComment on above:Performed By: #### [id number] #### [facility] [address], [place] [address]Zdzt Scr Glu 1 Hron 72-50-9958Oodzcmk [Mass/Vol]166 mg/dLHigh 55-140[facility] Medical CenterComment on above:Performed By: #### [id number] #### [facility] [address], [place] [address]Rmqiergicq macro (dipstick) panel (U)on 61-50-1685Eqlxqcnau, UA NegativeNegative - 4(70) +++ mg/dLNOMS HealthcareBlood, UANegativeNegative - 50 Mick/mcLNOMS HealthcareClarity, UACloudyNOMS HealthcareColor, UAStrawNOMS HealthcareGlucose, UANegativeNegative - 1999(110) ++++ mg/dLNOMS Healthcare Interpretation and review of laboratory resultsAbnormalNOMS HealthcareKetones, UANegativeNegative - 160(16) ++++ mg/dLNOMS HealthcareLeukocytes, UANegative Negative - 500+++ Campos/mcLNOMS HealthcareNitrite, UANegativeNegative - Positive NOMS HealthcarepH, UA8.55 - 9NOMS HealthcareProtein, UAPositiveNegative - 2000(20) ++++ mg/dLNOMS HealthcareSpec Grav, [id number] - 1.03[facility] Urobilinogen, UA1.00.2 - 12 mg/dLNOMS HealthcareNOMS HealthcareUrinalysis macro (dipstick) panel (U)on 78-12-0638Yugumvuqj, UANegativeNegative - 4(70) +++ mg/dL NOMS HealthcareBlood, [...] - 12 mg/dLNOMS HealthcareNOMS HealthcareCBC (NO DIFF)on 00-44-2681Sotlxouhxps distribution width (RBC) [Ratio] 15.5 %High11.5-15ProTexas Health Harris Medical Hospital AllianceComment on above:Performed By: #### CBC #### [facility] ([facility]) [address] [place] [address] VIRHematocrit (Bld) [Volume fraction]36.9 %Mrcist13-63YnsIvcwwjMercy Health Anderson HospitalComment on above:Performed By: #### CBC #### [facility] ([facility]) [address] [place] [address] VIRHemoglobin (Bld) [Mass/Vol]12.2 g/yVVjrjcs78.7-15.5PElyria Memorial HospitalComment on above:Performed By: #### CBC #### [facility] ([facility]) [address] [place] [address] VIRMCH (RBC) [Entitic mass]29.2 hwQzlvaf46-83CzzGybgohMercy Health Anderson HospitalComment on above:Performed By: #### CBC #### [facility] ([facility]) [address] [place] [address] VIRMCHC (RBC) [Mass/Vol]33.1 g/dKLbmhku40-57BmcPlajzqTexas Health Harris Medical Hospital AllianceComment on above:Performed By: #### CBC #### [facility] ([facility]) [address] [place] [address] VIRMCV (RBC) [Entitic vol]88 gPOdvhqu64-033RewBxatadMercy Health Anderson HospitalComment on above:Performed By: #### CBC #### [facility] ([facility]) [address] [place] [address] VIRPlatelet mean volume (Bld) [Entitic vol]7.8 fLNormal7-12 [facility] Anderson HospitalComment on above:Performed By: #### CBC #### [facility] ([facility]) [address] [place] [address] VIRPlatelets (Bld) [#/Vol]258 10*3/rHPmfeah918-335VvrBtucin Fremont HospitalComment on above:Performed By: #### CBC #### [facility] ([facility]) [address] [place] [address] VIRRBC COUNT4.19 X10E12/LNormal3.8-5.2PElyria Memorial HospitalComment on above:Performed By: #### CBC #### [facility] ([facility]) [address] [place] [address] VIRWBC (Bld) [#/Vol]10.7 10*3/uLNormal4-11Mer[facility] Anderson HospitalComment on above:Performed By: #### CBC #### [facility] ([facility]) [address] [place] [address] VIRCOMPREHENSIVE METABOLIC PANELon 61-42-5570Zrrspjg [Mass/Vol] 3.7 g/dLNormal3.2-5.3PElyria Memorial HospitalComment on above:Performed By: #### CMP #### [facility] ([facility]) [address] [place] [address] VIRALP [Catalytic activity/Vol]42 U/GUbkhap79-523RzdVbrcypTexas Health Harris Medical Hospital AllianceComment on above:Performed By: #### CMP #### [facility] ([facility]) [address] [place] [address] VIRALT [Catalytic activity/Vol]10 U/LNormal<=31PElyria Memorial HospitalComment on above:Performed By: #### CMP #### [facility] ([facility]) [address] [place] [address] VIRAnion gap [Moles/Vol]7 mmol/LNormal5-15ProTexas Health Harris Medical Hospital AllianceComment on above:Performed By: #### CMP #### [facility] ([facility]) [address] [place] [address] VIRAST [Catalytic activity/Vol]13 U/LNormal<=41ProTexas Health Harris Medical Hospital AllianceComment on above:Performed By: #### CMP #### [facility] ([facility]) [address] [place] [address] VIRBilirubin [Mass/Vol]0.3 mg/dLNormal0.3-1.2PElyria Memorial HospitalComment on above:Performed By: #### CMP #### [facility] ([facility]) [address] [place] [address] VIRCalcium [Mass/Vol]8.9 mg/dLNormal8.5-10.5PElyria Memorial HospitalComment on above:Performed By: #### CMP #### [facility] ([facility]) [address] [place] [address] VIRChloride [Moles/Vol]104 mmol/JEzswyi92-190NbtUjebxaTexas Health Harris Medical Hospital AllianceComment on above:Performed By: #### CMP #### [facility] ([facility]) [address] [place] [address] VIRCO2 [Moles/Vol]26 mmol/JJtkdcd27-02KbuHakiziElyria Memorial HospitalComment on above:Performed By: #### CMP #### [facility] ([facility]) [address] [place] [address] VIRCreatinine [Mass/Vol]0.48 mg/dLNormal0.40-1.00ProTexas Health Harris Medical Hospital AllianceComment on above:Result Comment: METHOD TRACEABLE TO IDMS STANDARDPerformed By: #### CMP #### [facility] ([facility]) [address] [place] [address] VIREGFR (CKD-EPI) NON-RACE DEPENDENT>^90Normal>=60ProTexas Health Harris Medical Hospital AllianceComment on above:Result Comment: Reported eGFR is based on the CKD-EPI 2020 equation that does not use a race coefficient.Performed By: #### CMP #### [facility] ([facility]) [address] [place] [address] VIRGlucose [Mass/Vol]87 mg/jMUjmjwr69-25YpuOvddhvTexas Health Harris Medical Hospital AllianceComment on above:Performed By: #### CMP #### [facility] ([facility]) [address] [place] [address] VIRPotassium [Moles/Vol]4.3 mmol/LNormal3.5-5.0Mer[facility] Anderson HospitalComment on above:Performed By: #### CMP #### [facility] ([facility]) [address] [place] [address] VIRProtein [Mass/Vol]6.1 g/dLNormal6.0-8.0ProTexas Health Harris Medical Hospital AllianceComment on above:Performed By: #### CMP #### [facility] ([facility]) [address] [place] [address] VIRSodium [Moles/Vol]137 mmol/MHfgltk495-620LrfNtxszp Fremont HospitalComment on above:Performed By: #### CMP #### [facility] ([facility]) [address] [place] [address] VIRUrea nitrogen [Mass/Vol]7 mg/dLNormal5-23ProTexas Health Harris Medical Hospital AllianceComment on above:Performed By: #### CMP #### [facility] ([facility]) [address] [place] [address] VIRFERRITINon 26-72-3241Yzbntghm [Mass/Vol]9 ng/hDMnq82-244 [facility] HospitalComment on above:Performed By: #### FERR #### [facility] ([facility]) [address] [place] [address] VIRFOLATEon 64-75-8910OBCJL ACID15.8 ng/mLNormal>5.8ProTexas Health Harris Medical Hospital AllianceComment on above:Performed By: #### FOLI #### [facility] ([facility]) [address] [place] [address] VIRMAGNESIUMon 01-75-7821Culrwihjq [Mass/Vol]1.9 mg/dLNormal 1.8-2.6ProTexas Health Harris Medical Hospital AllianceComment on above:Performed By: #### MG #### [facility] ([facility]) [address] [place] [address] VIRUS ABDOMEN COMPLETEon 74-57-9253GW ABDOMEN COMPLETEUS ABDOMEN COMPLETE History: Right upper [...] Aroldo Feliciano MD on 09/04/2024 10:15 AMNormalProMedica Indian Valley HospitalVITAMIN B12on 41-77-0015Dekfiqcee (Vitamin B12) [Mass/Vol]309 pg/mL Axneey596-334XaxUwlnti Indian Valley HospitalComment on above:Performed By: #### B12 #### [facility] ([facility]) [address] [place] [address] VIRIGP,APTIMA HPV,AGE GDLNon 09-00-8441VZL GDLN ACOG TESTING Note.NOMS HealthcareComment on above:TESTS RESULT FLAG UNITS REF RANGE LAB Clinician Provided Cytology Information Source.............Vagina Other.............. No. of containers..01 ThinPrep Vial Age Algo ACOG Rhonda... FLAG LEGEND: L-Low Normal,H-High Normal,LL-Alert Low,HH-Alert High <-Panic Low,>-Panic High,A-Abnormal,AA-Critical Abnormal Performed at: 01 =[facility] [place] [address] Allyssa Almendarez MD, IGP, RFX APTIMA HPV ASCUNote.NOMS HealthcareComment on above:TESTS RESULT FLAG UNITS REF RANGE LAB DIAGNOSIS: 02 NEGATIVE FOR INTRAEPITHELIAL LESION OR MALIGNANCY. Specimen adequacy: 02 Satisfactory for evaluation. No endocervical component is identified. Performed by: 02 Jose Shaikh, Paper Inserter ([facility]) . 02 Note: Note 03 The Pap [...] <-Panic Low,>-Panic High,A-Abnormal,AA-Critical Abnormal Performed at: 02 [facility] [address] [address] [place] [address] Kwaku Powell MD, [address] [address] Allyssa Almendarez MD, Performed at: =G - [facility] [address] [id number] Plaster Model And Mold Maker: Allyssa Almendarez MD, Phone: [phone] Performed at: [facility] - [facility] [address] [address] [place], [place] [id number] Plaster Model And Mold Maker: Kwaku Powell MD, Phone: [phone] SPATULA-ALONE VAGINA CLINISYNCNOMS HealthcareRECURRENT VAGINITIS (HTRX)on 64-99-7190MCZNBNFRF VAGINAE 29.3AbnormalNOMS HealthcareATOPOBIUM VAGINAEDetectedAbnormalNOMS HealthcareBVAB 2,3 (BACTERIAL VAGINOSIS ASSOCIATED BACTERIA 2, 3); MOBILUNCUS MIS6DBNC HealthcareBVAB 2,3 (BACTERIAL VAGINOSIS ASSOCIATED BACTERIA 2, 3); MOBILUNCUS SPPNot detectedNOMS HealthcareCANDIDA ALBICANS, PARAPSILOSIS, KJTOIKOLQU1WWWY HealthcareCANDIDA ALBICANS, PARAPSILOSIS, TROPICALISNot detectedNOMS Healthcare JABIER LROUZXAY0MZPP HealthcareCANDIDA GLABRATANot detectedNOMS Healthcare JABIER QAPQTV6JZDE HealthcareCANDIDA KRUSEINot detectedNOMS HealthcareCHLAMYDIA UHTNAOSLPCD2YOYY HealthcareCHLAMYDIA TRACHOMATISNot detectedNOMS Healthcare GARDNERELLA WPKOYPCTC06.051AbnormalNOMS HealthcareGARDNERELLA VAGINALISDetected AbnormalNOMS HealthcareInterpretation and review of laboratory resultsAbnormal NOMS HealthcareMEGASPHAERA (TYPES 1, 2)0NOMS HealthcareMEGASPHAERA (TYPES 1, 2) Not detectedNOMS HealthcareMYCOPLASMA LEDAMFWNSE2CFMG HealthcareMYCOPLASMA GENITALIUMNot detectedNOMS HealthcareNEISSERIA USBXJIXNGNR6EIAO Healthcare NEISSERIA GONORRHOEAENot detectedNOMS HealthcareTET B, TET M24.916AbnormalNOMS HealthcareTET B, TET MDetectedAbnormalNOAL HealthcareTRICHOMONAS OPZELSAJH4DXAB HealthcareTRICHOMONAS VAGINALISNot detectedNOAL HealthcareNOMS Healthcare Urinalysis macro (dipstick) panel (U)on 08-31-6982Buokcdnsc, UANegativeNegative - 4(70) +++ mg/dLNOMS HealthcareBlood, UANegativeNegative - 50 Mick/mcLNOMS HealthcareClarity, UAClearNOMS HealthcareColor, UAYellowNOMS HealthcareGlucose, UANegativeNegative - 2000(110) ++++ mg/dLNOAL HealthcareInterpretation and review of laboratory resultsNormalNOAL HealthcareKetones, UANegativeNegative - 160(16) ++++ mg/dLNOAL HealthcareLeukocytes, UANegativeNegative - 500+++ Campos/mcL NOMS HealthcareNitrite, UANegativeNegative - PositiveNOMS HealthcarepH, UA65 - 9 NOMS HealthcareProtein, UANegativeNegative - 2000(20) ++++ mg/dLNOAL Healthcare Spec Grav, UA1.0251 - 1.03NOAL HealthcareUrobilinogen, UA0.20.2 - 12 mg/dLNOMS HealthcareNOAL HealthcareBasic metabolic 2000 panelon 39-32-1020Ofpvc gap [Moles/Vol]13 mmol/L10 - 20 mmol/[facility] CenterCalcium [Mass/Vol]8.8 mg/dL8.6 - 10.6 mg/dLUnWilson HealthChloride [Moles/Vol]101 mmol/L98 - 107 mmol/[facility] CenterCO2 [Moles/Vol]23 mmol/L21 - 32 mmol/[facility] CenterCreatinine [Mass/Vol]0.54 mg/dL0.50 - 1.05 mg/dLUnWilson HealtheGFR- [facility] HospitalComment on above:Calculations of estimated GFR are performed using the 2020 CKD-EPI Study Refit equation without therace variable for the IDMS-Traceable creatinine methods. https://jasn.asnjournals.org/content/early/ASN.1268734323 Glucose [Mass/Vol]137 mg/aKUvaj64 - 99 mg/dLUnWilson Health Interpretation and review of laboratory resultsAbnormalUniMorrow County HospitalPotassium [Moles/Vol]3.6 mmol/L3.5 - 5.3 mmol/[facility] CenterSodium [Moles/Vol]133 mmol/XHnc543 - 145 mmol/[facility] CenterUrea nitrogen [Mass/Vol]12 mg/dL6 - 23 mg/dLGuernsey Memorial HospitalAnion gap [Moles/Vol]13 mmol/HNprtwn76-79DflxmykdxpOhioHealth Marion General HospitalComment on above:Performed By: #### 82255-4 #### CARI Mark ([id number]) [facility] ([facility]) [id number] [place] [address]Bmrdxia [Mass/Vol]8.8 mg/dLNormal8.6-10.6UnOhioHealth Marion General HospitalComment on above:Performed By: #### 46973-8 #### CARI Mark ([id number]) [facility] ([facility]) [address] [place] [address]Jdhahuly [Moles/Vol]101 mmol/OOwgkkm06-763WcpjurmoazOhioHealth Marion General HospitalComment on above:Performed By: #### 37058-9 #### CARI Mark ([id number]) [facility] ([facility]) [address] [place] [address]PN5 [Moles/Vol]23 mmol/RCpltkv19-21OilxxahmjxOhioHealth Marion General HospitalComment on above:Performed By: #### 66469-5 #### CARI Mark ([id number]) [facility] ([facility]) [address] [place] [address]Znngfzhwkr [Mass/Vol]0.54 mg/dLNormal0.50-1.05UnOhioHealth Marion General HospitalComment on above:Performed By: #### 60352-7 #### CARI Mark ([id number]) [facility] ([facility]) [address] [place] [address]JTI/1.73 sq M.predicted MDRD (S/P/Bld) [Vol rate/Area] mL/min/{1.73_m2}Normal>60Prem[facility] Atrium Medical CenterComment on above:Result Comment: Calculations of estimated GFR are performed using the 2020 CKD-EPI Study Refit equation without the race variable for the IDMS-Traceable creatinine methods. https://jasn.asnjournals.org/content/early/ASN.7324757018Resvpefzi By: #### 21972-1 #### CARI Mark ([id number]) [facility] ([facility]) [address] [place] [address] 86593Hbjzrld [Mass/Vol]137 mg/sPWwgq38-10KyjthzcriqPremier Health Atrium Medical CenterComment on above:Performed By: #### 55681-2 #### CARI Mark ([id number]) [facility] ([facility]) [address] [place] [address] 14941Yadfsempz [Moles/Vol]3.6 mmol/LNormal3.5-5.3Premier Health Atrium Medical CenterComment on above:Performed By: #### 02189-2 #### CARI Mark ([id number]) [facility] ([facility]) [address] [place] [address] 24593Ouzzar [Moles/Vol]133 mmol/YTdi664-038PfseuzdpryOhioHealth Marion General HospitalComment on above:Performed By: #### 31741-8 #### CARI Mark ([id number]) [facility] ([facility]) [address] [place] [address] 57946Ejkv nitrogen [Mass/Vol]12 mg/dLNormal6-23Premier Health Atrium Medical CenterComment on above:Performed By: #### 48775-3 #### CARI Mark ([id number]) [facility] ([facility]) [address] [place] [address] 42717Gxeo hydroxybutyrate [Mass or moles/Vol]on 04-08-3549Zdpm hydroxybutyrate [Moles/Vol]0.11 mmol/L0.02 - 0.27 mmol/[facility] CenterThe beta-hydroxybutyrate test performance characteristics have been validated by [facility]. This test has not been approved by the FDA; however such approval is not necessary. [facility] HospitalBeta hydroxybutyrate [Moles/Vol]0.11 mmol/L Normal0.02-0.27UnOhioHealth Marion General HospitalComment on above: Order Comment: The beta-hydroxybutyrate test performance characteristics have been validated by [facility]. This test has not been approved by the FDA; however such approval is not necessary. Performed By: #### 10410-6 #### CARI Mark ([id number]) [facility] ([facility]) [address] [place] [address] 54129Ofzs hydroxybutyrate [Moles/Vol]0.43 mmol/LHigh0.02 - 0.27 mmol/[facility] CenterInterpretation and review of laboratory resultsAbnoRegency Hospital Cleveland WestThe beta-hydroxybutyrate test performance characteristics have been validated by [facility]. This test has not been approved by the FDA; however such approval is not necessary.[facility]. trachomatis and N. gonorrhoeae DNA REEMA+probe Nom (Unsp spec)on 08-15-2024. trachomatis rRNA REEMA+probe Ql (Unsp spec)NegativeNegativeUnWilson HealthInterpretation and review of laboratory resultsNoRegency Hospital Cleveland WestN. gonorrhoeae DNA Probe+sig amp Ql (Unsp spec)Negative NegativeUnWilson HealthThe APTIMA Combo 2 assay is FDA- approved [...] other sites are not validated for this method.[facility] Memorial HospitalUnSt. Elizabeth Hospital. trachomatis rRNA REEMA+probe Ql (Unsp spec)NegativeNormal NegativePremier Health Atrium Medical CenterComment on above:Order Comment: The APTIMA Combo 2 [...] not validated for this method.Performed By: #### 48316-4 #### CARI Mark ([id number]) [facility] ([facility]) [address] [place], [place] [address]N. gonorrhoeae DNA Probe+sig amp Ql (Unsp spec)NegativeNormal NegativePremier Health Atrium Medical CenterComment on above:Order Comment: The APTIMA Combo 2 [...] not validated for this method.Performed By: #### 78416-5 #### CARI Mark ([id number]) [facility] ([facility]) [address] [place] [address] 53453RIB W Auto Differential panel (Bld)on 27-42-3335Ebipecaxb (Bld) [#/Vol]0.02 10*3/[facility] BeachwoodBasophils/100 WBC (Bld)0.2 %0.0 - 2.0 %[facility] HospitalEosinophils (Bld) [#/Vol]0 10*3/[facility], BeachwoodEosinophils/100 WBC (Bld)0 %0.0 - 6.0 % [facility] HospitalErythrocyte distribution width (RBC) [Ratio] 14.3 %11.5 - 14.5 %[facility]als [facility] ClevelandHematocrit (Bld) [Volume fraction]30.4 %Low36.0 - 46.0 %[facility] HospitalHemoglobin (Bld) [Mass/Vol]10.9 g/dLLow12.0 - 16.0 g/dLUnWilson HealthImmature granulocytes (Bld) [#/Vol]0.08 10*3/uLUnWilson HealthImcature granulocytes/100 WBC (Bld)0.6 %0.0 - 0.9 %[facility] Comment on above:Immature Granulocyte Count (IG) includes promyelocytes, myelocytes and metamyelocytes but does not include bands. Percent differential counts (%) should be interpreted in the context of the absolute cell counts (cells/UL).Interpretation and review of laboratory resultsAbnormalUniMorrow County HospitalLymphocytes (Bld) [#/Vol]1.39 10*3/uLUnWilson HealthLymphocytes/100 WBC (Bld)10.8 %13.0 - 44.0 %[facility] CincinnatiH (RBC) [Entitic mass]29.6 pg26.0 - 34.0 pgUnSelect Medical Specialty Hospital - Columbus SouthHC (RBC) [Mass/Vol]35.9 g/dL32.0 - 36.0 g/dLUnSelect Medical Specialty Hospital - Columbus SouthV (RBC) [Entitic vol]83 fL80 - 100 fLUniMorrow County HospitalMonocytes (Bld) [#/Vol]0.62 10*3/uLUnWilson Health Monocytes/100 WBC (Bld)4.8 %2.0 - 10.0 %[facility] Neutrophils (Bld) [#/Vol]10.8 10*3/uLHighUnWilson Health Comment on above:Percent differential counts (%) should be interpreted in the context of the absolute cell counts (cells/uL).Neutrophils/100 WBC (Bld)83.6 % 40.0 - 80.0 %[facility] HospitalNucleated RBC/100 WBC (Bld) [Ratio]0 %[facility] HospitalPlatelets (Bld) [#/Vol]251 10*3/uL [facility] HospitalRBC (Bld) [#/Vol]3.68 10*6/[facility] HospitalWBC (Bld) [#/Vol]12.9 10*3/[facility] HospitalUnWilson HealthChoriogonadotropin.beta subuniton 18-93-8605HJZ.beta subunit [id number] m[IU]/mLHigh<5UnOhioHealth Marion General HospitalComment on above:Order Comment: Total HCG measurement is performed using the Siemens [employer] immunoassay which detects intact HCG and free beta HCG subunit. This test is not indicated for use as a tumor marker. HCG testing is performed using a different test methodology at [facility] than other [facility]. Direct result comparison should only be [...] source of the HCG elevation.Performed By: #### 76052-6 #### CARI Mark ([id number]) [facility] ([facility]) [address] [place], [place] [address]Comprehensive metabolic 2000 panelon 09-89-7319Xfvamgg BCP dye [Mass/Vol]3.6 g/dL3.4 - 5.0 g/dLUnWilson HealthALP [Catalytic activity/Vol]35 U/L33 - 110 U/[facility] CenterALT With P-5'-P [Catalytic activity/Vol]14 U/L7 - 45 U/[facility] CenterComment on above:Patients treated with Sulfasalazine may generate falsely decreased results for ALT.Anion gap [Moles/Vol]11 mmol/L10 - 20 mmol/L [facility] HospitalAST With P-5'-P [Catalytic activity/Vol]11 U/L9 - 39 U/[facility] CenterBilirubin [Mass/Vol]0.4 mg/dL0.0 - 1.2 mg/dLUniversity Hospitals of ClevelandCalcium [Mass/Vol]9 mg/dL8.6 - 10.6 mg/dL [facility] HospitalChloride [Moles/Vol]103 mmol/L98 - 107 mmol/L [facility] HospitalCO2 [Moles/Vol]25 mmol/L21 - 32 mmol/L [facility] HospitalCreatinine [Mass/Vol]0.46 mg/dLLow0.50 - 1.05 mg/dLUnWilson HealtheGFR- PINFUniMorrow County HospitalComment on above:Calculations of estimated GFR are performed using the 2020 CKD-EPI Study Refit equation without therace variable for the IDMS- Traceable creatinine methods. https://jasn.asnjournals.org/content//ASN.9819550397 Glucose [Mass/Vol]107 mg/dYAsmb22 - 99 mg/dLUnWilson Health Interpretation and review of laboratory resultsAbnormalUniMorrow County HospitalPotassium [Moles/Vol]3.3 mmol/LLow3.5 - 5.3 mmol/[facility] CenterProtein [Mass/Vol]5.8 g/dLLow6.4 - 8.2 g/dLUnWilson HealthSodium [Moles/Vol]136 mmol/L136 - 145 mmol/[facility] CenterUrea nitrogen [Mass/Vol]10 mg/dL6 - 23 mg/dLUnWilson HealthUnWilson HealthDRUG SCREEN,URINEon 08-15-2024 Amphetamines Screen Ql (U)NegativeNormalPresumptive NegativeUnOhioHealth Marion General HospitalComment on above:Order Comment: Drug screen results are presumptive and should not be used to assesscompliance with prescribed medication. Contact the performing [facility] laboratoryto add-on definitive confirmatory testing if [...] phentermine, phenylpropanolamine, pseudoephedrine, and propranolol.Performed By: #### 54775-3 #### ACRI Mark ([id number]) [facility] ([facility]) [address] [place], [place] [address]Barbiturates Screen Ql (U)NegativeNormalPresumptive Negative [facility]rium Medical CenterComment on above:Order Comment: Drug screen results are presumptive and should not be used to assesscompliance with prescribed medication. Contact the performing [facility] laboratoryto add-on definitive confirmatory testing if [...] Comment: CUTOFF LEVEL: 200 NG/MLPerformed By: #### 37147-0 #### CARI Mark ([id number]) [facility] ([facility]) [address] [place] [address] 51241Wmqmgzrelywrcyw Ql (U)NegativeNormalPresumptive Negative [facility]rium Medical CenterComment on above:Order Comment: Drug screen results are presumptive and should not be used to assesscompliance with prescribed medication. Contact the performing [facility] laboratoryto add-on definitive confirmatory testing if [...] Comment: CUTOFF LEVEL: 200 NG/MLPerformed By: #### 62503-2 #### CARI Mark ([id number]) [facility] ([facility]) [address] [place] [address] 47444Hionlyyjeqsraou Screen Ql (U)NegativeNormalPresumptive NegativePremier Health Atrium Medical CenterComment on above:Order Comment: Drug screen results are presumptive and should not be used to assesscompliance with prescribed medication. Contact the performing [facility] laboratoryto add-on definitive confirmatory testing if [...] Comment: CUTOFF LEVEL: 150 NG/MLPerformed By: #### 06268-6 #### CARI Mark ([id number]) [facility] ([facility]) [address] [place] [address] 55303Fbrnoyibvicv Screen Ql (U)PositiveAbnormalPresumptive NegativePremier Health Atrium Medical CenterComment on above:Order Comment: Drug screen results are presumptive and should not be used to assesscompliance with prescribed medication. Contact the performing [facility] laboratoryto add-on definitive confirmatory testing if [...] Comment: CUTOFF LEVEL: 50 NG/MLPerformed By: #### 84049-2 #### CARI Mark ([id number]) [facility] ([facility]) [address] [place], [place] [address]fentaNYL+Norfentanyl Screen Ql (U)NegativeNormalPresumptive NegativePremier Health Atrium Medical CenterComment on above:Order Comment: Drug screen results are presumptive and should not be used to assesscompliance with prescribed medication. Contact the performing [facility] laboratoryto add-on definitive confirmatory testing if [...] Comment: CUTOFF LEVEL: 5 NG/MLPerformed By: #### 20728-6 #### CARI Mark ([id number]) [facility] ([facility]) [address] [place] [address] 41605Xmqjqutvm Screen Ql (U)NegativeNormalPresumptive Negative [facility]rium Medical CenterComment on above:Order Comment: Drug screen results are presumptive and should not be used to assesscompliance with prescribed medication. Contact the performing [facility] laboratoryto add-on definitive confirmatory testing if [...] Comment: CUTOFF LEVEL: 150 NG/ML The metabolite Q-skeqs-qmjwiqsqkqgbwl (LAAM) is not detected by this method in concentrations that would be found in the urine of patients on LAAM therapy.Performed By: #### 59955-0 #### CARI Mark ([id number]) [facility] ([facility]) [address] [place] [address] 41370Pbcdyuu Screen Ql (U)PositiveAbnormalPresumptive Negative [facility]rium Medical CenterComment on above:Order Comment: Drug screen results are presumptive and should not be used to assesscompliance with prescribed medication. Contact the performing [facility] laboratoryto add-on definitive confirmatory testing if [...] to Oxycodone Screen, Urine result).Performed By: #### 80573-9 #### CARI Mark ([id number]) [facility] ([facility]) [id number] [place] [address] 17473yfzGPUUTP+oxyMORphone Screen Ql (U)NegativeNormalPresumptive NegativePremier Health Atrium Medical CenterComment on above:Order Comment: Drug screen results are presumptive and should not be used to assesscompliance with prescribed medication. Contact the performing [facility] laboratoryto add-on definitive confirmatory testing if [...] detect both oxycodone and oxymorphone.Performed By: #### 34774-2 #### CARI Mark ([id number]) [facility] ([facility]) [address] [place] [address] 85315Okdrwegbcgwsx Ql (U)NegativeNormalPresumptive Negative [facility]rium Medical CenterComment on above:Order Comment: Drug screen results are presumptive and should not be used to assesscompliance with prescribed medication. Contact the performing [facility] laboratoryto add-on definitive confirmatory testing if [...] has been reported with dextromethorphan.Performed By: #### 30172-6 #### CARI Mark ([id number]) [facility] ([facility]) [address] [place] [address] 51335Fzts Screen, Urineon 27-69-6472Wwdnshgymcuj Screen Ql (U) NegativePresumptive NegativeGuernsey Memorial HospitalComment on above: CUTOFF LEVEL: 500 NG/ML Cross-reactivity has been reported with high concentrations of the following drugs: buproprion, chloroquine, chlorpromazine, ephedrine, mephentermine, fenfluramine, phentermine, phenylpropanolamine, pseudoephedrine, and propranolol. Barbiturates Screen Ql (U)NegativePresumptive NegativePremier Health [facility] on above:CUTOFF LEVEL: 200 NG/MLBenzodiazepines Ql (U)Negative Presumptive [facility] on above:CUTOFF LEVEL: 200 NG/MLBenzoylecgonine Screen Ql (U)NegativePresumptive Negative [facility] on above:CUTOFF LEVEL: 150 NG/ML Cannabinoids Screen Ql (U)PositiveAbnormalPresumptive [facility] on above:CUTOFF LEVEL: 50 NG/ML fentaNYL+Norfentanyl Screen Ql (U)NegativePresumptive [facility] on above:CUTOFF LEVEL: 5 NG/MLInterpretation and review of laboratory resultsAbmercy hospital washingtonalUSt. Vincent HospitalMethadone Screen Ql (U)NegativePresumptive [facility] Comment on above:CUTOFF LEVEL: 150 NG/ML The metabolite G-wyebv-wktntvsxzcnddt (LAAM) is not detected by this method in concentrations that would be found in the urine of patients on LAAM therapy. Opiates Screen Ql (U)PositiveAbnormalPresumptive [facility] on above:CUTOFF LEVEL: 300 NG/ML The opiate screen does not detect fentanyl, meperidine, or tramadol. Oxycodone is not consistently detected (refer to Oxycodone Screen, Urine result). oxyCODONE+oxyMORphone Screen Ql (U)NegativePresumptive [facility] on above:CUTOFF LEVEL: 100 NG/ML This test will accurately detect both oxycodone and oxymorphone. Phencyclidine Ql (U)NegativePresumptive [facility] on above:CUTOFF LEVEL: 25 NG/ML Cross-reactivity has been reported with dextromethorphan. Drug screen results are presumptive and should not be used to assess compliance with prescribed medication. Contact the performing [facility] laboratory to add-on definitive confirmatory testing [...] to the laboratory medical directors. [facility] HospitalEC 12 lead Ordered By: Lynsey Luna on 60-14-9017Zkcuzf Nbkj70NZPXcrhaghitpMiddletown Hospital Work Phone: [phone] Okbq56hrtisnsOtrnmgydghBerger Hospital Work Phone: [phone] Lbgrol062 [facility] Work Phone: P Tryey444 [facility] Work Phone: PR Orrwtwwz875 [facility] Work Phone: [phone] Jzmsa711 [facility] Work Phone: [phone] Lusnb88xwqjpZnkrkhimdvSt. [facility] Work Phone: QRS Wyivxgak06 [facility] Work Phone: [phone] Tuglpvhg754 [facility] Work Phone: [phone] Calculation(Bazett)422 [facility] Work Phone: [phone] Tjpqbavzoq685 [facility] Work Phone: [phone] Bxqv50fsgvewgSmtmthlybbBerger Hospital Work Phone: [phone] Cwlo03nkqowubOxbudmjwuhBerger Hospital Work Phone: [phone] Ngcyvq374 [facility] Work Phone: [phone] Hzxg86SBAOcrcjyxxqkOhioHealth O'[facility]len[facility] Hospital Work Phone: [phone] Work Phone: ECG 12 leadon 20-87-0763Rxkvvb sinus rhythm Rightward axis Borderline ECG When compared with ECG of 13-AUG-2024 09:19, No significant change was found See ED provider note for full interpretation and clinical correlation Confirmed by Lynsey Luna ([id number]) on 08/15/2024 11:32:35 AMLynsey Flores APRN-SHIPPING SERVICES SALES REPRESENTATIVE - 08/15/2024 Normal sinus rhythm Rightward axis Borderline ECG When compared with ECG of 13-AUG-2024 09:19, No significant change was found See ED provider note for full interpretation and clinical correlation Confirmed by Lynsey Luna ([id number]) on 08/15/2024 11:32:35 AM [facility] Work Phone: ecG 12-LEADon 88-42-5836SUA 12-LEADVentricular Rate 70 Atrial Rate 70 P-R Interval 126 QRS Duration 72 Q-T Interval 386 QTC Calculation(Bazett) 416 P [place] 77 R [place] 88 T [place] 62 QRS Count 12 Q Onset 220 P Onset 157 P Offset 201 T Offset 413 QTC Fredericia 406 Diagnosis Normal sinus rhythm Normal ECG When compared with ECG of 14-AUG-2024 22:14, No significant change was found See ED provider note for full interpretation and clinical correlation Confirmed by Baylee Pizano ([id number]) on 08/17/2024 6:01:46 AMNormalUH [facility] HospitalExtra Urine Doran Tubeon 76-60-9013Uawem TubeHold for add-ons. [facility] HospitalComment on above:Auto resulted.[facility] HospitalHC ( test) Ql (U)Ordered By: Karis Newton on 55-32-3161Yibddrudbzlabi and review of laboratory resultsAbKettering Health Washington TownshipPre Test, UrPositiveAbnoRegency Hospital Cleveland WestUnWilson HealthHCG.beta subunit Qnon 08-15-2024 Interpretation and review of laboratory resultsAbKettering Health Washington TownshipToalta view hospital HCG measurement is performed using the Siemens [employer]ell[employer] immunoassay which detects intact HCG and free beta HCG subunit. This test is not indicated for use as a tumor marker. HCG testing is performed using a different test methodology at [facility] than other [facility]. Dir ect result comparison should only be made within the same method. [facility] HospitalHuman Chorionic Gonadotropin, Serum Quantitativeon 37-49-3618LLM.beta subunit [id number] m[IU]/mLHighNISelect Medical Specialty Hospital - TrumbullComment on above:Low-level positive HCG results can be [...] as the source of the HCG elevation.Lipaseon 91-10-1708Zgqukr [Catalytic activity/Vol]16 U/L9 - 82 U/[facility] CenterLipase [Catalytic activity/Vol]on 21-66-1665Htbvgmtvhfhobm and review of laboratory resultsNoRegency Hospital Cleveland WestVenipuncture immediately after or during the administration of Metamizole may lead to falsely low results. Testing should be performed immediately prior to Metamizole dosing.[facility] Memorial HospitalMagnesiumon 03-99-5480Pldfgfthm [Mass/Vol]1.83 mg/dL1.60 - 2.40 mg/dLUnWilson HealthMagnesium [Mass/Vol]1.83 mg/dLNormal 1.60-2.40UnOhioHealth Marion General HospitalComment on above:Order Comment: 2 hours after infusion complete.Performed By: #### 50340-6 #### CARI Mark ([id number]) [facility] ([facility]) [address] [place], [place] [address]No Panel Informationon 81-49-2725Ulkbyxxhtilbqh and review of laboratory resultsNoRegency Hospital Cleveland WestUnWilson HealthUnWilson HealthTRANSTHORACIC ECHO (TTE) COMPLETEon 41-52-8538ERCPJDEFLIGIR ECHO (TTE) [facility], [address] [place] [address] and TRANSTHORACIC ECHOCARDIOGRAM REPORT Patient Name: INDU JORGENSEN Reading Physician: [id number] Zuleyka Gibbons MD Study Date: 08/15/2024 Ordering Provider: [id number] LENKA SCHWARTZ MRN/PID: [id number] Fellow: Nurse: Date of /Age: 6 1995 / 28 Soda Jerker: Isabella nelson RDCS, RVT Gender assigned at F Additional Staff: : Height: 167.64 cm Admit Date: Weight: 52.62 kg Admission Status: Inpatient - Priority discharge BSA / BMI: 1.59 m2 / 18.72 kg/m2 Blood Pressure: 127/64 mmHg Department Location: [facility] Non Invasive Study Type: TRANSTHORACIC ECHO (TTE) COMPLETE Diagnosis/ICD: Chest pain, unspecified-R07.9 Indication: Chest pain. CPT Code: Echo Complete w Full Doppler-42885 Patient History: Pertinent History: 14 weeks . [...] LA Area A4C: 13.0 cm2 LA Major [place] A4C: 4.0 cm RIGHT ATRIUM: Normal Ranges: [...] Kai: 0.94 PulmV Sys Kai: 71.25 cm/s 23371 Zuleyka Gibbons MD Electronically signed on 08/15/2024 at 12:27:54 PM Final [facility] HospitalTropinin I.cardiac panel High sensitivity methodon 01-64-0744Muflsolrjrhpav and review of laboratory resultsNoRegency Hospital Cleveland WestLess than 99th percentile of normal range cutoff- [...] performed using a different testing methodology at [facility] than at other [facility]. Direct result comparisons should only be made within the same method. [facility] Memorial HospitalUnWilson HealthTroponin I, High Sensitivityon 34-18-8730Hvomgxys I.cardiac panel High sensitivity method ng/L0 - 34 ng/LUnWilson HealthUS Heart TransthoracicOrdered By: Zuleyka Gibbons on 19-72-3121Tumtby Valve Area by Continuity of Peak Velocity2.08 gv4MenlakuabqGuernsey Memorial Hospital Work Phone: [phone] pk rfzb7whOcVhqcsdxohdWilson Health Work Phone: [phone] pk vel1.38 m/[facility] Work Phone: [phone] A4C EF63.9UnWilson Health Work Phone: [phone] EF63 %[facility] Work Phone: [phone] cmGuernsey Memorial Hospital Work Phone: [phone] diam1.96 [facility] Work Phone: [phone] E/A ratio2.36Un[facility] Health Work Phone: [phone] free wall pk S'14 cm/[facility] Work Phone: [phone] annular plane systolic excursion2.7 cm [facility] Work Phone: [phone] Health Work Phone: [phone] Heart Transthoracicon 08-15-2024 [facility], [address] [place] [address] and TRANSTHORACIC ECHOCARDIOGRAM REPORT Patient Name: INDU Dorsey Physician: [id number] Zuleyka Gibbons MD Study Date: 08/15/2024 Ordering Provider: [id number] LENKA SCHWARTZ MRN/PID: [id number] Fellow: Nurse: Date of /Age: 6 1995 / 28 Soda Jerker: Isabella nelson RDCS, RVT Gender assigned at F Additional Staff: : Height: 167.64 cm Admit Date: Weight: 52.62 kg Admission Status: Inpatient - Priority discharge BSA / BMI: 1.59 m2 / 18.72 kg/m2 Blood Pressure: 127/64 mmHg Department Location: [facility] Non Invasive Study Type: TRANSTHORACIC ECHO (TTE) COMPLETE Diagnosis/ICD: Chest pain, unspecified-R07.9 Indication: Chest pain. CPT Code: Echo Complete w Full Doppler-67478 Patient History: Pertinent History: 14 weeks . [...] LA Area A4C: 13.0 cm2 [place] A4C: 4.0 cm RIGHT ATRIUM: Normal Ranges: [...] content not included)...Zuleyka Hopson MD - 08/15/2024 [facility], [address] [place] [address] and TRANSTHORACIC ECHOCARDIOGRAM REPORT Patient Name: INDU Dorsey Physician: [id number] Zuleyka Gibbons MD Study Date: 08/15/2024 Ordering Provider: [id number] LENKA Kobi LANA MRN/PID: [id number] Fellow: Nurse: Date of /Age: 6 1995 Soda Jerker: Isabella nelson RDCS, RVT Gender assigned at F Additional Staff: : Height: 167.64 cm Admit Date: Weight: 52.62 kg Admission Status: Inpatient - Priority discharge BSA / BMI: 1.59 m2 / 18.72 kg/m2 Blood Pressure: 127/64 mmHg Department Location: [facility] Non Invasive Study Type: TRANSTHORACIC ECHO (TTE) COMPLETE Diagnosis/ICD: Chest pain, unspecified-R07.9 Indication: Chest pain. CPT Code: Echo Complete w Full Doppler-43317 Patient History: Pertinent History: 14 weeks . [...] [place] A4C: 13.0 cm2 [place] A4C: 4.0 cm RIGHT ATRIUM: Normal Ranges: [...] Kai: 0.94 PulmV Sys Kai: 71.25 cm/s 03220 Zuleyka Gibbons MD Electronically signed on 08/15/2024 at 12:27:54 PM Final [facility] Work Phone: US for pregnancyon . Single live intrauterine gestation [...] Leon Null 08/15/2024 2:58 AM Dictation workstation: [id number] By: Leon Null and Dervishi Mario STUDY: US OB LIMITED 1+ FETUSES; 08/15/2024 2:14 am INDICATION: Signs/Symptoms:abdominal and chest pain during . COMPARISON: None. ACCESSION NUMBER(S): [id number] ORDERING CLINICIAN: LEÓN SPARROW TECHNIQUE: Multiple images [...] identified. No abnormal fluid collections are noted. Leon Lizama MD - 08/15/2024 Interpreted By: Leon Null and Dervishi Mario STUDY: US OB LIMITED 1+ FETUSES; 08/15/2024 2:14 am INDICATION: Signs/Symptoms:abdominal and chest pain during . COMPARISON: None. ACCESSION NUMBER(S): [id number] ORDERING CLINICIAN: LEÓN SPARROW TECHNIQUE: Multiple images [...] Leon Null 08/15/2024 2:58 AM Dictation workstation: [id number] [facility] Work Phone: Radiology Study observation (narrative)[facility] Work Phone: US for pregnancyOrdered By: Leon Null on 39-00-4098OiufcggopmWilson Health Work Phone: Urinalysis complete W Reflex Culture panel (U)on 53-65-7960Zhhhbwvscu (U)ClearClearUnWilson HealthBilirubin (U) [Mass/Vol]NegativeNEGATIVE mg/dLUnWilson HealthColor (U) YellowLight-Yellow, Yellow, Dark-YellowUnWilson Health Epithelial cells.squamous Auto (Urine sed) [#/Area]1-9 (SPARSE)Reference range not established. /HPFUnWilson HealthGlucose Auto test strip (U) [Mass/Vol]NormalNormal mg/dLUnWilson HealthInterpretation and review of laboratory resultsAbnormalUniversSt. Elizabeth Ann Seton Hospital of KokomoKetones (U) [Mass/Vol]40 (2+)AbnormalNEGATIVE mg/dLUnWilson Health Leukocyte esterase Auto test strip Ql (U)NegativeNEGATIVEUnWilson HealthMucus Auto (Urine sed) [#/Area]3+Reference range not established. /LPF [facility] HospitalNitrite Auto test strip Ql (U)NegativeNEGATIVE [facility] HospitalpH (U)6 [pH]5.0, 5.5, 6.0, 6.5, 7.0, 7.5, 8.0 [facility] HospitalProtein (U) [Mass/Vol]20 (TRACE)NEGATIVE, 10 (TRACE), 20 (TRACE) mg/dLUnWilson HealthRBC (U) [#/Vol] NegativeNEGATIVE mg/dLUnMemorial Hermann The Woodlands Medical CentervelandRB Auto (Urine sed) [#/Area]3-5NONE, 1-2, 3-5 /Parkwood HospitalSpecific gravity (U) [Rel density]1.0231.005 - 1.035UnWilson HealthUrobilinogen (U) [Mass/Vol]NormalNormal mg/dLGuernsey Memorial HospitalW Auto (Urine sed) [#/Area]1-46Tbnqvouo0-1, NONE /TIMPANOGOS REGIONAL HOSPITALUnAdams County HospitalAppearance (U)ClearNormalClearUnOhioHealth Marion General HospitalComment on above:Performed By: #### 09180-6 #### CARI Mark ([id number]) [facility] ([facility]) [address] [place] [address] 62572Zbqlcyyvj (U) [Mass/Vol]NegativeNormalNEGATIVEUnOhioHealth Marion General HospitalComment on above:Performed By: #### 77122-0 #### CARI Mark ([id number]) [facility] ([facility]) [address] [place] [address] 06170Mncar (U)YellowNormalLight-Yellow, Yellow, Dark-Yellow [facility] Medical CenterComment on above:Performed By: #### 71522-5 #### CARI Mark ([id number]) [facility] ([facility]) [address] [place] [address] 31808Pxwfytfony cells.squamous Auto (Urine sed) [#/Area]1-9 (SPARSE)NormalReference range not established.[facility] Medical CenterComment on above:Performed By: #### 02091-3 #### CARI Mark ([id number]) [facility] ([facility]) [address] [place] [address] 48433Cjxtdak Auto test strip (U) [Mass/Vol]NormalNormalNormal [facility] Medical CenterComment on above:Performed By: #### 17594-3 #### CARI Mark ([id number]) [facility] ([facility]) [address] [place] [address] 94136Ocribgh (U) [Mass/Vol]40 (2+)AbnormalNEGATIVEUnOhioHealth Marion General HospitalComment on above:Performed By: #### 79042-4 #### CARI Mark ([id number]) [facility] ([facility]) [address] [place] [address] 35474Cjevqpndl esterase Auto test strip Ql (U)NegativeNormal NEGATIVEUnOhioHealth Marion General HospitalComment on above:Performed By: #### 89910-4 #### CARI Mark ([id number]) [facility] ([facility]) [address] [place] [address] 71457Eibxi Auto (Urine sed) [#/Area]3+ /LPFNormalReference range not established.[facility] Medical CenterComment on above: Performed By: #### 74663-6 #### CARI Mark ([id number]) [facility] ([facility]) [address] [place] [address] 77271Tutpxnk Auto test strip Ql (U)NegativeNormalNEGATIVE [facility] Medical CenterComment on above:Performed By: #### 67796-0 #### CARI Mark ([id number]) [facility] ([facility]) [address] [place] [address] 87950rG (U)6.0 [pH]Normal5.0, 5.5, 6.0, 6.5, 7.0, 7.5, 8.0 [facility] Medical CenterComment on above:Performed By: #### 16777-6 #### CARI Mark ([id number]) [facility] ([facility]) [address] [place] [address] 32433Qdinafo (U) [Mass/Vol]20 (TRACE)NormalNEGATIVE, 10 (TRACE), 20 (TRACE)[facility] Medical CenterComment on above: Performed By: #### 46344-7 #### CARI Mark ([id number]) [facility] ([facility]) [address] [place] [address] 43485DYM (U) [#/Vol]NegativeNormalNEGATIVEPremier Health Atrium Medical CenterComment on above:Performed By: #### 13128-6 #### CARI Mark ([id number]) [facility] ([facility]) [address] [place] [address] 17279JHH Auto (Urine sed) [#/Area]3-5NormalNONE, 1-2, 3-5 [facility] CenterComment on above:Performed By: #### 06152-7 #### CARI Mark ([id number]) [facility] ([facility]) [address] [place] [address] 18108Caiolorh gravity (U) [Rel density]1.774Gwezcz9.005-1.035 [facility] Medical CenterComment on above:Performed By: #### 98726-2 #### CARI Mark ([id number]) [facility] ([facility]) [address] [place] [address] 54889Jpsyoftffekd (U) [Mass/Vol]NormalNormalNormalUniversMetroHealth Cleveland Heights Medical CenterComment on above:Performed By: #### 71803-5 #### CARI Mark ([id number]) [facility] ([facility]) [address] [place] [address] 01235JLD Auto (Urine sed) [#/Area]5-05Taoytcxp3-7, Middletown HospitalComment on above:Performed By: #### 14876-1 #### CARI Mark ([id number]) [facility] ([facility]) [address] [place] [address] 49441EI ABDOMEN 1 VIEWon 36-73-3152VA ABDOMEN 1 VIEWInterpreted By: Dennis Bobby and Ohs Zachary STUDY: XR ABDOMEN 1 VIEW; 08/15/2024 4:59 am INDICATION: Signs/Symptoms:abdominal pain. COMPARISON: None. ACCESSION NUMBER(S): [id number] ORDERING CLINICIAN: LENKA SCHWARTZ FINDINGS: There is [...] Dennis Bobby 08/15/2024 6:40 AM Dictation workstation: [id number]gh-Hyde Memorial HospitalXR Abdomen Single viewon 66-23-2623Kqrihnfqhsisrl bowel gas pattern. I personally reviewed the images/study and I agree with the findings as stated by Dr. Cesar Jordan. MACRO: none Signed by: Dennis Bobby 08/15/2024 6:40 AM Dictation workstation: [id number] MMODALInterpreted By: Dennis Bobby and Ohs Zachary STUDY: XR ABDOMEN 1 VIEW; 08/15/2024 4:59 am INDICATION: Signs/Symptoms:abdominal pain. COMPARISON: None. ACCESSION NUMBER(S): [id number] ORDERING CLINICIAN: LENKA SCHWARTZ FINDINGS: There is a nonobstructive bowel gas pattern. No extraluminal or portal venous gas. Visualized soft tissues and osseous structures are unremarkable. The lung bases are clear. Dennis Davis MD - 08/15/2024 Interpreted By: Dennis Bobby and Ohs Zachary STUDY: XR ABDOMEN 1 VIEW; 08/15/2024 4:59 am INDICATION: Signs/Symptoms:abdominal pain. COMPARISON: None. ACCESSION NUMBER(S): [id number] ORDERING CLINICIAN: LENKA SCHWARTZ FINDINGS: There is [...] Dennis Bobby 08/15/2024 6:40 AM Dictation workstation: [id number] [facility] Work Phone: Radiology Study observation (narrative)[facility] Work Phone: XR Abdomen Single viewOrdered By: Dennis Bobby on 94-67-3143DqgmeyzewaGuernsey Memorial Hospital Work Phone: bmPon 60-12-5157Mbhdv gap [Moles/Vol]16 mmol/LNormal 6-16[facility] CenterComment on above:Performed By: #### [id number] #### [facility] [address], [place] [address]MGT/Creat Ratio32 No IuhbbFgew62-13KotsojUniversity Hospitals Beachwood Medical Center Comment on above:Performed By: #### [id number] #### [facility] [address], [place] [address]Wyuvlkj [Mass/Vol]9.6 mg/dLNormal8.9-11.1FCleveland Clinic Akron General Lodi HospitalComment on above:Performed By: #### [id number] #### [facility] [address], [place] [address]Aayqbrfu [Moles/Vol]102 mmol/PGuknte373-000IashkkUniversity Hospitals Beachwood Medical CenterComment on above:Performed By: #### [id number] #### [facility] [address], [place] [address]EW1 [Moles/Vol]20 mmol/LQfh99-65KodmdqUniversity Hospitals Beachwood Medical Center Comment on above:Performed By: #### [id number] #### [facility] [address], [place] [address]Fioesxyajf [Mass/Vol]0.4 mg/dLLow0.5-1.3FCleveland Clinic Akron General Lodi HospitalComment on above:Performed By: #### 7394633 #### [facility] [address], [place] [address]Teamnxl [Mass/Vol]152 mg/nYNoejbk34-956TbarjuUniversity Hospitals Beachwood Medical CenterComment on above:Performed By: #### 8103040 #### [facility] [address], [place] [address]Qjqotxlsw [Moles/Vol]3.1 mmol/LLow3.5-5.3FCleveland Clinic Akron General Lodi HospitalComment on above:Performed By: #### 4771643 #### [facility] [address], [place] [address]Ztqcyn [Moles/Vol]135 mmol/PUfibsj758-074LnzgetUniversity Hospitals Beachwood Medical CenterComment on above:Performed By: #### 1890573 #### [facility] [address], [place] [address]Nrpw nitrogen [Mass/Vol]13 mg/dLNormal5-21[facility] Medical CenterComment on above:Performed By: #### [id number] #### [facility] [address], [place] [address]Sdwi hydroxybutyrate [Mass or moles/Vol]on 96-67-8330Gedc hydroxybutyrate [Moles/Vol]0.43 mmol/LHigh0.02-0.27UnOhioHealth Marion General HospitalComment on above:Order Comment: The beta-hydroxybutyrate test performance characteristics have been validated by [facility]. This test has not been approved by the FDA; however such approval is not necessary.Performed By: #### 56414-7 #### CARI Mark ([id number]) [facility] ([facility]) [address] [place] [address] 05882ZTV W Auto Differential panel (Bld)on 66-43-9989Hmtzourcj (Bld) [#/Vol]0.02 x10*3/uLNormal0.00-0.10UnOhioHealth Marion General HospitalComment on above:Performed By: #### 44997-5 #### CARI Mark ([id number]) [facility] ([facility]) [address] [place], [place] [address]Iwigjmkqq/100 WBC (Bld)0.2 %Normal0.0-2.0UnOhioHealth Marion General HospitalComment on above:Performed By: #### 05566-0 #### CARI Mark ([id number]) [facility] ([facility]) [address] [place] [address] 29237Qszyewdbrqk (Bld) [#/Vol]0.00 x10*3/uLNormal0.00-0.70 [facility] Medical CenterComment on above:Performed By: #### 41610-5 #### CARI Mark (09695) [facility] ([facility]) [address] [place] [address] 10657Gauafuclcwf/100 WBC (Bld)0.0 %Normal0.0-6.0UnOhioHealth Marion General HospitalComment on above:Performed By: #### 38281-6 #### CARI Mark (18597) [facility] ([facility]) [address] [place] [address] 04144Reoercvspbo distribution width (RBC) [Ratio]14.3 %Normal 11.5-14.5UnOhioHealth Marion General HospitalComment on above:Performed By: #### 13798-1 #### CARI Mark (25890) [facility] ([facility]) [address] [place] [address] 63596Hpzlqulrbp (Bld) [Volume fraction]30.4 %Low36.0-46.0 [facility] Medical CenterComment on above:Performed By: #### 91982-1 #### CARI Mark ([id number]) [facility] ([facility]) [address] [place] [address] 40735Grnaivednb (Bld) [Mass/Vol]10.9 g/dLLow12.0-16.0UnOhioHealth Marion General HospitalComment on above:Performed By: #### 24032-9 #### CARI Mark ([id number]) [facility] ([facility]) [address] [place] [address] 64454Zcnjioyp granulocytes (Bld) [#/Vol]0.08 x10*3/uLNormal 0.00-0.70UnOhioHealth Marion General HospitalComment on above:Performed By: #### 89751-7 #### CARI Mark (78330) [facility] ([facility]) [address] [place] [address] 63654Yeslgpkj granulocytes/100 WBC (Bld)0.6 %Normal0.0-0.9 [facility] CenterComment on above:Result Comment: Immature Granulocyte Count (IG) includes promyelocytes, myelocytes and metamyelocytes but does not include bands. Percent differential counts (%) should be interpreted in the context of the absolute cell counts (cells/UL). Performed By: #### 76463-3 #### CARI Mark (44327) [facility] ([facility]) [address] [place] [address] 29233Qzqmdgzopnk (Bld) [#/Vol]1.39 x10*3/uLNormal1.20-4.80 [facility] CenterComment on above:Performed By: #### 39491-6 #### CARI Mark ([id number]) [facility] ([facility]) [address] [place] [address] 87081Czxmbfvyynb/100 WBC (Bld)10.8 %Thbmjq03.0-44.0UnOhioHealth Marion General HospitalComment on above:Performed By: #### 25671-9 #### CARI Mark ([id number]) [facility] ([facility]) [address] [place] [address] 05130QTY (RBC) [Entitic mass]29.6 zvTypndf95.0-34.0UnOhioHealth Marion General HospitalComment on above:Performed By: #### 93974-2 #### CARI Mark (63918) [facility] ([facility]) [address] [place] [address] 69162GRZI (RBC) [Mass/Vol]35.9 g/zTDftdvb57.0-36.0UnOhioHealth Marion General HospitalComment on above:Performed By: #### 28298-0 #### CARI Mark (37856) [facility] ([facility]) [address] [place] [address] 63177DXM (RBC) [Entitic vol]83 dOZcleli78-084XjqiajeoerOhioHealth Marion General HospitalComment on above:Performed By: #### 56840-1 #### CARI Mark (60086) [facility] ([facility]) [address] [place], [place] [address]Dcxrdftlz (Bld) [#/Vol]0.62 x10*3/uLNormal0.10-1.00UnOhioHealth Marion General HospitalComment on above:Performed By: #### 41662-8 #### CARI Mark ([id number]) [facility] ([facility]) [address] [place], [place] [address]Axyoozrfp/100 WBC (Bld)4.8 %Normal2.0-10.0UnOhioHealth Marion General HospitalComment on above:Performed By: #### 46423-1 #### CARI Mark (56380) [facility] ([facility]) [address] [place] [address] 92488Yyrwtppqjrr (Bld) [#/Vol]10.80 x10*3/uLHigh1.20-7.70 [facility] Medical CenterComment on above:Result Comment: Percent differential counts (%) should be interpreted in the context of the absolute cell counts (cells/uL).Performed By: #### 09299-3 #### CARI Mark (69636) [facility] ([facility]) [address] [place], [place] [address]Tdbskexcbwy/100 WBC (Bld)83.6 %Svgzsh87.0-80.0UnOhioHealth Marion General HospitalComment on above:Performed By: #### 81192-4 #### CARI Mark (87527) [facility] ([facility]) [address] [place], [place] [address]Uwkgmbauf RBC/100 WBC (Bld) [Ratio]0.0 /100 WBCsNormal0.0-0.0 [facility] CenterComment on above:Performed By: #### 24044-7 #### CARI Mark (90525) [facility] ([facility]) [address] [place], [place] [address]Xoorljpyr (Bld) [#/Vol]251 x10*3/wKMkslvg921-590RznxcjgmcyPremier Health Atrium Medical CenterComment on above:Performed By: #### 71632-5 #### CARI Mark (60487) [facility] ([facility]) [address] [place], [place] [address]QXE (Bld) [#/Vol]3.68 x10*6/uLLow4.00-5.20[facility] Medical CenterComment on above:Performed By: #### 42977-9 #### CARI Mark (58145) [facility] ([facility]) [address] [place] [address] 39320SBH (Bld) [#/Vol]12.9 x10*3/uLHigh4.4-11.3[facility] Medical CenterComment on above:Performed By: #### 52851-6 #### CARI Mark ([id number]) [facility] ([facility]) [address] [place] [address] 35673IRD w/ Auto Diffon 11-50-2912Gavfawiw Absolute0.0 E9/LNormal 0.0-0.2[facility] Trauma CenterComment on above:Performed By: #### [id number] #### [facility] [address], [place] [address]Pbgsvrjif/100 WBC (Bld)0.1 %Normal0.0-2.0[facility] Medical CenterComment on above:Performed By: #### 4701600 #### [facility] [address], [place] [address]Cix Absolute0.0 E9/LNormal0.0-0.5[facility] Comment on above:Performed By: #### [id number] #### [facility] [address], [place] [address]Gkorfhskwsf/100 WBC (Bld)0.0 %Normal0.0-8.0[facility] CenterComment on above:Performed By: #### 5254835 #### [facility] [address], [place] [address]Cewcydstjvp distribution width (RBC) [Ratio]15.0 %High10.9-14.2 [facility] CenterComment on above:Performed By: #### 4970149 #### [facility] [address], [place] [address]Mezroayrwy (Bld) [Volume fraction]39.4 %Ygyucv93.0-46.0[facility] Medical CenterComment on above:Performed By: #### 9186043 #### [facility] [address], [place] [address]Kijozcvvag (Bld) [Mass/Vol]13.5 g/jEJqjhdc61.0-16.0[facility] CenterComment on above:Performed By: #### [id number] #### [facility] [address] [place] [address] 25[address]Vursr Absolute1.1 E9/LNormal1.0-4.0[facility] Comment on above:Performed By: #### 7184838 #### [facility] [address], [place] [address]Pqicmjirfpc/100 WBC (Bld)5.6 %Low14.0-50.0[facility] CenterComment on above:Performed By: #### 7823594 #### [facility] [address] [place] [address] 21865RZZ (RBC) [Entitic mass]29.7 zaIkdlsr92.0-34.0[facility] CenterComment on above:Performed By: #### [id number] #### [facility] [address], [place] [address]WFTH (RBC) [Mass/Vol]34.2 g/sTJdzscc79.4-36.0[facility] CenterComment on above:Performed By: #### 7466836 #### [facility] [address], [place] [address]MRH (RBC) [Entitic vol]86.9 oPDgrqfw79.0-100.0[facility]am Medical CenterComment on above:Performed By: #### 3408432 #### [facility] [address], [place] [address]Eifr Absolute0.8 E9/LNormal0.2-1.0[facility] Comment on above:Performed By: #### [id number] #### [facility] [address], [place] [address]Nibdwzcju/100 WBC (Bld)3.9 %Low4.0-14.0[facility] Medical CenterComment on above:Performed By: #### 5375239 #### [facility] [address], [place] [address]Yditdf Zjchwbwz29.3 E9/LHigh2.0-7.5FC[facility] Comment on above:Performed By: #### 5843865 #### [facility] [address], [place] [address]Nhroyb Auto90.4 %High36.0-75.0[facility] Comment on above:Performed By: #### [id number] #### [facility] [address], [place] [address]Szlotzxh211.0 E9/HGbtzmn781.0-500.0[facility] Comment on above:Performed By: #### [id number] #### [facility] [address], [place] [address]Icpyjenk mean volume (Bld) [Entitic vol]8.5 fLNormal6.4-10.8 [facility] Medical CenterComment on above:Performed By: #### [id number] #### [facility] [address], [place] [address]NDI6.5 E12/LNormal4.3-5.9[facility] Medical CenterComment on above:Performed By: #### 6018597 #### [facility] [address], [place] [address]BTA26.2 E9/LHigh4.0-11.0[facility] Medical CenterComment on above:Result Comment: Peripheral smear review performed.Performed By: #### [id number] #### [facility] [address] [place], [place] [address]RWFSHZFTHIbkxqcs By: SYSTEM SYSTEM on 90-13-5358Rngtgsnhgnve Screen method >1000 ng/mL Ql (U)NEGATIVE 9 [...] Called to OB/Camron BurtInterpretive Data: Negative Cutoff: <50 ng/mLCocaine Ql (U)NEGATIVE [...] {ratio}Normal 1.1 - 2.2Remisol ChemALP [Catalytic activity/Vol]46 [iU]/sEkabnd53 - 98 Int._Unit/LRemisol ChemALT No additional P-5'-P [Catalytic activity/Vol]18 [iU]/dNormal6 - 46 Int._Unit/LRemisol ChemAnion gap [Moles/Vol]16 mmol/LNormal6 - 16 mEq/LRemisol ChemAST [Catalytic activity/Vol]17 [iU]/dNormal5 - 43 Int._Unit/LRemisol ChemBilirubin [Mass/Vol]0.5 mg/dLNormal0.0 - 1.1 mg/dLRemisol ChemBilirubin.direct [Mass/Vol]0.1 mg/dLNormal0.0 - 0.4 mg/dLRemisol Chem Bilirubin.indirect [Mass or moles/Vol]0.4 mg/dLNormal0.1 - 0.9 mg/dLRemisol Chem Calcium [Mass/Vol]9.6 mg/dLNormal8.9 - 11.1 mg/dLRemisol ChemChloride [Moles/Vol]102 mmol/NWqjgok596 - 111 mmol/LRemisol ChemCO2 [Moles/Vol]20 mmol/L Low21 - 31 mmol/LRemisol ChemCreatinine [Mass/Vol]0.4 mg/dLLow0.5 - 1.3 mg/dL Remisol ChemGFR/1.73 sq M.predicted MDRD (S/P/Bld) [Vol rate/Area]136 mL/min/1.73 q9Paffbz>=59mL/min/1.73 x0Xmwaqar ChemGlobulin (S) [Mass/Vol]2.9 g/dLNormal1.4 - 4.0 gm/dLRemisol ChemGlucose [Mass/Vol]152 mg/zWUezdaa60 - 199 mg/dLRemisol ChemLipase [Catalytic activity/Vol]58 U/WMlwvqq02 - 58 unit/L Remisol ChemPotassium [Moles/Vol]3.1 mmol/LLow3.5 - 5.3 mmol/LRemisol Chem Protein [Mass/Vol]7.3 g/dLNormal6.0 - 7.8 gm/dLRemisol ChemSodium [Moles/Vol]135 mmol/UUtekro469 - 145 mmol/LRemisol ChemTroponin HS6.50 pg/mLLow10.10 - 27.10 pg/mLRemisol ChemComment on above:Interpretive Data: The 95% CI (Confidence Interval) PPV (Positive Predictive Value) for myocardial infarction in females is 38 pg/mL, in males 51 pg/mL. The results should be used in conjunction with clinical conditions of myocardial infarction. (Access High Sensitivity Troponin I Instructions For Use, Jade Windsor, October 2017)Urea nitrogen [Mass/Vol]13 mg/dLNormal5 - 21 mg/dLRemisol ChemUrea nitrogen/Creatinine [Mass ratio]32 mg/emXdop71 - 20Remisol ChemComprehensive metabolic 2000 panelon 76-09-3495Kluvlcj BCP dye [Mass/Vol]3.6 g/dLNormal3.4-5.0 [facility] Medical CenterComment on above:Performed By: #### 03264-9 #### CARI Mark ([id number]) [facility] ([facility]) [address] [place], [place] [address]RKC [Catalytic activity/Vol]35 U/QUyqdaj74-445PqhvmewmgqOhioHealth Marion General HospitalComment on above:Performed By: #### 63458-4 #### CARI Mark ([id number]) [facility] ([facility]) [address] [place] [address] 590[address]XQM With P-5'-P [Catalytic activity/Vol]14 U/LNormal7-45 [facility] CenterComment on above:Result Comment: Patients treated with Sulfasalazine may generate falsely decreased results for ALT.Performed By: #### 58451-7 #### CARI Mark ([id number]) [facility] ([facility]) [address] [place], [place] [address]Vaiwr gap [Moles/Vol]11 mmol/LAoyqmv90-53JepirohsiiOhioHealth Marion General HospitalComment on above:Performed By: #### 99921-5 #### CARI Mark ([id number]) [facility] ([facility]) [address] [place], [place] [address]CHX With P-5'-P [Catalytic activity/Vol]11 U/LNormal9-39 [facility] CenterComment on above:Performed By: #### 08656-6 #### CARI Mark ([id number]) [facility] ([facility]) [address] [place], [place] [address]Qiatuuzmy [Mass/Vol]0.4 mg/dLNormal0.0-1.2UnOhioHealth Marion General HospitalComment on above:Performed By: #### 75386-2 #### CARI Mark ([id number]) [facility] ([facility]) [address] [place] [address] 84[address]Jdqigjg [Mass/Vol]9.0 mg/dLNormal8.6-10.6[facility] Medical CenterComment on above:Performed By: #### 39642-7 #### CARI Mark ([id number]) [facility] ([facility]) [address] [place] [address]Voifnbvy [Moles/Vol]103 mmol/ZMxrosr18-749CjzbkzscpjOhioHealth Marion General HospitalComment on above:Performed By: #### 20787-9 #### CARI Mark ([id number]) [facility] ([facility]) [address] [place] [address] 13718QD8 [Moles/Vol]25 mmol/MAunxtx63-21KsriumblptOhioHealth Marion General HospitalComment on above:Performed By: #### 44940-3 #### CARI Mark ([id number]) [facility] ([facility]) [address] [place], [place] [address]Krtkhruyue [Mass/Vol]0.46 mg/dLLow0.50-1.05UnOhioHealth Marion General HospitalComment on above:Performed By: #### 47891-9 #### CARI Mark ([id number]) [facility] ([facility]) [address] [place], [place] [address]VEO/1.73 sq M.predicted MDRD (S/P/Bld) [Vol rate/Area] mL/min/{1.73_m2}Normal>60UnOhioHealth Marion General HospitalComment on above:Result Comment: Calculations of estimated GFR are performed using the 2020 CKD-EPI Study Refit equation without the race variable for the IDMS-Traceable creatinine methods. https://jasn.asnjournals.org/content/early//ASN.6278610414Hcognnxqu By: #### 52451-3 #### CARI Mark ([id number]) [facility] ([facility]) [address] [place], [place] [address]Czzpges [Mass/Vol]107 mg/lULinm69-52BjcahtndvzOhioHealth Marion General HospitalComment on above:Performed By: #### 87828-2 #### CARI Mark ([id number]) [facility] ([facility]) [address] [place], [place] [address]Pzhpourrx [Moles/Vol]3.3 mmol/LLow3.5-5.3[facility] Medical CenterComment on above:Performed By: #### 89892-2 #### CARI JACKSON L ([id number]) [facility] ([facility]) [address] [place], [place] [address]Kdxjshp [Mass/Vol]5.8 g/dLLow6.4-8.2UnOhioHealth Marion General HospitalComment on above:Performed By: #### 86207-5 #### CARI JACKSON L ([id number]) [facility] ([facility]) [address] [place], [place] [address]Gafztw [Moles/Vol]136 mmol/KVqfoxv998-953RsqzzwlhlnPremier Health Atrium Medical CenterComment on above:Performed By: #### 76711-3 #### CARI Mark ([id number]) [facility] ([facility]) [address] [place], [place] [address]Evyd nitrogen [Mass/Vol]10 mg/dLNormal6-23[facility] Medical CenterComment on above:Performed By: #### 58113-7 #### CARI GUZMANMOADELINAER L ([id number]) [facility] ([facility]) [address] [place], [place] [address]ZXX 12-LEADon 87-05-9308FMZ 12-LEADVentricular Rate 82 Atrial Rate 82 P-R Interval 118 QRS Duration 70 Q-T Interval 362 QTC Calculation(Bazett) 422 P [place] 78 R [place] 93 T [place] 46 QRS Count 14 Q Onset 220 P Onset 161 P Offset 204 T Offset 401 QTC Fredericia 401 Diagnosis Normal sinus rhythm Rightward axis Borderline ECG When compared with ECG of 13-AUG-2024 09:19, No significant change was found See ED provider note for full interpretation and clinical correlation Confirmed by Lynsey Luna ([id number]) on 08/15/2024 11:32:35 [facility] CenterED Note-Physicianon [id number] Note-PhysicianED Note-Physician Basic Information Time Seen: Bk Garduno DO 08/14/2024 02:41 Chief Complaint Pt. reports N/V since this AM. Pt. states she went to [facility] this AM and then f/u with [...] 25 mL/hr, Infuse ove (more content not included)...[facility] Comment on above:Result Comment: Electronically Signed By: Silvana Lizama, Boo Briceno\.br\Date and Time Signed: 08/14/2510:44 EDTED Note-PhysicianED Note-Physician Basic Information Time Seen: Bk Garduno DO 08/14/2024 02:41 Chief Complaint Pt. reports N/V since this AM. Pt. states she went to [facility] this AM and then f/u with [...] 25 mL/hr, Infuse ove (more content not included)...[facility] Comment on above:Result Comment: Electronically Signed By: Bk Garduno DO.br\Date and Time Signed: 08/14/24 06:20 EDTExtra Blueon 02-32-9868Ursx Collected PlasmaYesInvalid Interpretation [facility] CenterComment on above:Performed By: #### [id number] #### [facility] [address] [place], [place] [address]Xsj panel (BldV)on 17-75-6713Atziv gap 4 (BldV) [Moles/Vol]8 mmol/LLow10.0 - 25.0 mmol/[facility] CenterBase excess Calc (BldV) [Moles/Vol]3.3 mmol/LHigh-2.0 - 3.0 mmol/[facility] CenterCalcium.ionized (BldV) [Moles/Vol]1.22 mmol/L1.10 - 1.33 mmol/L [facility] HospitalChloride (BldV) [Moles/Vol]103 mmol/L98 - 107 mmol/[facility] CenterCO2 (BldV) [Partial pressure]36 mm[Hg]Low [facility] HospitalGlucose [Mass/Vol]108 mg/xVCebf61 - 99 mg/dL [facility] HospitalHCO3 (Bld) [Moles/Vol]26.8 mmol/LHigh22.0 - 26.0 mmol/[facility] CenterHematocrit Est (Bld) [Volume fraction]35 %Low36.0 - 46.0 %[facility] HospitalHemoglobin (Bld) [Mass/Vol]11.5 g/dLLow12.0 - 16.0 g/dLGuernsey Memorial HospitalInhaled oxygen bwfrbltozzbrh32 %[facility] HospitalInterpretation and review of laboratory resultsAbnormalUniMorrow County HospitalLactate (BldV) [Moles/Vol]0.7 mmol/L0.4 - 2.0 mmol/[facility] Oxygen (BldV) [Partial pressure]86 mm[Hg]HighUnWilson Health Oxygen saturation in Venous blood98 %High45 - 75 %[facility] HospitalOxyhemoglobin (BldV) [Mass fraction]94.8 %High45.0 - 75.0 %[facility] HospitalpH (BldV)7.48 [pH]High7.33 - 7.43 pHUnWilson HealthPotassium (BldV) [Moles/Vol]3.4 mmol/LLow3.5 - 5.3 mmol/[facility] CenterSodium (BldV) [Moles/Vol]134 mmol/BOtx618 - 145 mmol/L [facility] HospitalUnWilson HealthAnion gap 4 (BldV) [Moles/Vol]8.0 mmol/LLow10.0-25.0[facility] Medical CenterComment on above:Performed By: #### 53831-3 #### CARI Mark ([id number]) [facility] ([facility]) [address] [place] [address] 07[address]Qjxe excess Calc (BldV) [Moles/Vol]3.3 mmol/LHigh-2.0-3.0 [facility] CenterComment on above:Performed By: #### 95420-5 #### CARI Mark ([id number]) [facility] ([facility]) [address] [place] [address] 380[address]Xlpxazq.ionized (BldV) [Moles/Vol]1.22 mmol/LNormal1.10-1.33 [facility] CenterComment on above:Performed By: #### 45277-5 #### CARI Mark ([id number]) [facility] ([facility]) [address] [place] [address] 6[address]Ivlcchoq (BldV) [Moles/Vol]103 mmol/XUwjujx24-897NyhjyfwltxOhioHealth Marion General HospitalComment on above:Performed By: #### 17124-5 #### CARI Mark ([id number]) [facility] ([facility]) [address] [place] [address] 22[address]DA0 (BldV) [Partial pressure]36 mm UoAjb86-58YonnkncbqgOhioHealth Marion General HospitalComment on above:Performed By: #### 76181-6 #### CARI Mark ([id number]) [facility] ([facility]) [address] [place] [address] 859[address]Foeiazg [Mass/Vol]108 mg/qMMoei99-51ShsdszoavaOhioHealth Marion General HospitalComment on above:Performed By: #### 87432-0 #### CARI Mark ([id number]) [facility] ([facility]) [address] [place] [address] 70959ZRV1 (Bld) [Moles/Vol]26.8 mmol/LHigh22.0-26.0UnOhioHealth Marion General HospitalComment on above:Performed By: #### 42974-6 #### CARI Mark ([id number]) [facility] ([facility]) [address] [place] [address]49[address]Llihiairdw Est (Bld) [Volume fraction]35.0 %Low36.0-46.0 [facility] Medical CenterComment on above:Performed By: #### 24927-5 #### CARI Mark ([id number]) [facility] ([facility]) [address] [place] [address] 734[address]Hxygbfgogs (Bld) [Mass/Vol]11.5 g/dLLow12.0-16.0[facility] Medical CenterComment on above:Performed By: #### 97405-5 #### CARI Mark ([id number]) [facility] ([facility]) [address] [place] [address] 10698Jigiuqb oxygen jepfhzqbqzrze81 %NormalUnOhioHealth Marion General HospitalComment on above:Performed By: #### 26457-8 #### CARI Mark ([id number]) [facility] ([facility]) [address] [place] [address] 92693Dxochoo (BldV) [Moles/Vol]0.7 mmol/LNormal0.4-2.0[facility] Medical CenterComment on above:Performed By: #### 98867-2 #### CARI Mark ([id number]) [facility] ([facility]) [address] [place] [address] 30392Oaqxbz (BldV) [Partial pressure]86 mm HpKxjs68-52VbleclzkxiOhioHealth Marion General HospitalComment on above:Performed By: #### 31314-3 #### CARI Mark ([id number]) [facility] ([facility]) [address] [place] [address] 46578Tcvoqz saturation in Venous blood98 %Mvod13-19RmxkmaiqtwPremier Health Atrium Medical CenterComment on above:Performed By: #### 67469-1 #### CARI Mark ([id number]) [facility] ([facility]) [address] [place] [address] 00129Saztvuohtpscb (BldV) [Mass fraction]94.8 %High45.0-75.0 [facility] CenterComment on above:Performed By: #### 44545-1 #### CARI Mark ([id number]) [facility] ([facility]) [address] [place] [address] 09529sL (BldV)7.48 [pH]High7.33-7.43UnOhioHealth Marion General HospitalComment on above:Performed By: #### 69376-5 #### CARI Mark ([id number]) [facility] ([facility]) [address] [place] [address] 10439Gitlvegcq (BldV) [Moles/Vol]3.4 mmol/LLow3.5-5.3UnOhioHealth Marion General HospitalComment on above:Performed By: #### 97977-2 #### CARI Mark ([id number]) [facility] ([facility]) [address] [place] [address] 52985Rpvlsp (BldV) [Moles/Vol]134 mmol/KUmb405-283HtgtbaogwlOhioHealth Marion General HospitalComment on above:Performed By: #### 43638-0 #### CAIR Mark ([id number]) [facility] ([facility]) [address] [place] [address] 54076EHCRRMNWWPQntrycu By: SYSTEM SYSTEM on 08-14-2024 Basophils/100 WBC (Bld)0.1 %Normal0.0 - 2.0 %Remisol HemeBasophils/Leukocytes Auto (Bld) [Pure # fraction]0.0 E9/LNormal0.0 - 0.2 E9/LRemisol HemeEosinophils (Bld) [#/Vol]0.0 E9/LNormal0.0 - 0.5 E9/LRemisol HemeEosinophils/100 WBC (Bld) 0.0 %Normal0.0 - 8.0 %Remisol HemeErythrocyte distribution width (RBC) [Ratio] 15.0 %High10.9 - 14.2 %Remisol HemeHematocrit (Bld) [Volume fraction]39.4 % Hlhttu19.0 - 46.0 %Remisol HemeHemoglobin (Bld) [Mass/Vol]13.5 g/pBGypffs64.0 - 16.0 gm/dLRemisol HemeLymphocytes (Bld) [#/Vol]1.1 E9/LNormal1.0 - 4.0 E9/L Remisol HemeLymphocytes/100 WBC (Bld)5.6 %Low14.0 - 50.0 %Remisol HemeMCH (RBC) [Entitic mass]29.7 egCumqkl24.0 - 34.0 pgRemisol HemeMCHC (RBC) [Mass/Vol]34.2 g/kWQssjeb33.4 - 36.0 gm/dLRemisol HemeMCV (RBC) [Entitic vol]86.9 qCFzuhls60.0 - 100.0 fLRemisol HemeMonocytes (Bld) [#/Vol]0.8 E9/LNormal0.2 - 1.0 E9/LRemisol HemeMonocytes/100 WBC (Bld)3.9 %Low4.0 - 14.0 %Remisol HemeNeutrophils (Bld) [#/Vol]18.3 E9/LHigh2.0 - 7.5 E9/LRemisol HemeNeutrophils/100 WBC (Bld)90.4 % High36.0 - 75.0 %Remisol HemePlatelet mean volume (Bld) [Entitic vol]8.5 fL Normal6.4 - 10.8 fLRemisol HemePlatelets (Bld) [#/Vol]319.0 E9/RWoxirq222.0 - 500.0 E9/LRemisol HemeRBC (Bld) [#/Vol]4.5 E12/LNormal4.3 - 5.9 E12/LRemisol HemeWBC corrected for nucl RBC Auto (Bld) [#/Vol]20.2 E9/LHigh4.0 - 11.0 E9/L Remisol HemeComment on above:Result Comment: Peripheral smear review performed. Hep Func Panelon 59-57-3782Jeecezb [Mass/Vol]4.4 g/dLNormal3.3-5.0[facility] CenterComment on above:Performed By: #### [id number] #### [facility] [address], [place] [address]Veuhwze/Globulin [Mass ratio]1.5 {ratio}Normal1.1-2.2FCleveland Clinic Akron General Lodi HospitalComment on above:Performed By: #### [id number] #### [facility] [address], [place] [address]Qih Phos46 Int._Unit/MRkodpq27-92RwflazUniversity Hospitals Beachwood Medical Center Comment on above:Performed By: #### [id number] #### [facility] [address], [place] [address]KFI58 Int._Unit/LNormal6-46[facility] CenterComment on above:Performed By: #### [id number] #### [facility] [address], [place] [address]KPF12 Int._Unit/LNormal5-43[facility] CenterComment on above:Performed By: #### [id number] #### [facility] [address], [place] [address]Oyos Direct0.1 mg/dLNormal0.0-0.4FCleveland Clinic [facility] Comment on above:Performed By: #### [id number] #### [facility] [address], [place] [address]Iupd Indirect0.4 mg/dLNormal0.1-0.9[facility] Comment on above:Performed By: #### [id number] #### [facility] [address], [place] [address]Sfgc Total0.5 mg/dLNormal0.0-1.1FC[facility] Comment on above:Performed By: #### [id number] #### [facility] [address], [place] [address]Ujqcqjbu (S) [Mass/Vol]2.9 g/dLNormal1.4-4.0[facility] Medical CenterComment on above:Performed By: #### [id number] #### [facility] [address], [place] [address]Qvtxxkq [Mass/Vol]7.3 g/dLNormal6.0-7.8[facility] Medical CenterComment on above:Performed By: #### [id number] #### [facility] [address], [place] [address]Oobmpjvzy Clinical Summaryon 28-34-5964Uuuhbnenq Clinical SummaryInpatient Clinical Summary [address] [address] Clinical Summary Person Information Name: INDU [facility] Age: 28 Years : 1995 Sex: Female PCP: Yasmin WELCH DO Marital Status: Phone: [phone] Race: White Ethnicity: Non- or Language: Polish Visit Id: Visit Reason: Abdominal pain; Back pain; Vomiting; Nausea; N/V/D/FEVER - 14 WEEKS Speciality: Acuity: Ante Enc Type: Observation Med Service: Obstetrics Arrival: 08/14/2024 01:36:38 Discharge: 08/14/2024 19:55:00 Dispo Type: Home (Routine DC) Address: [address] [place] [id number] Provider Notes: Diagnosis: Acute hypokalemia; Acute vomiting [...] range between ( 80.0 and 100.0 ) [place] Auto: 3.9 % -- Normal range between ( 4.0 and 14.0 ) MPV: 8.5 fL -- Normal range between ( 6.4 and 10.8 ) Neutro Auto: 90.4 % -- Normal range between ( 36.0 and 75.0 ) Platelet: 319.0 E9/L -- Normal range between ( 150.0 and 500.0 ) WBC: 20.2 E9/L -- Normal range between ( 4.0 and 11.0 ) [place] Absolute: 0.8 E9/L -- Normal range between [...] ( 0.0 and 1.1 (more content not included)...NormalUniversity Hospitals Beachwood Medical CenterInpatient Clinical SummaryInpatient Clinical Summary [address] [address] Clinical Summary Person Information Name: INDU [facility] Age: 28 Years : 1995 Sex: Female PCP: Yasmin WELCH DO Marital Status: Phone: [phone] Race: White Ethnicity: Non- or Language: Polish Visit Id: Visit Reason: Abdominal pain; Back pain; Vomiting; Nausea; N/V/D/FEVER - 14 WEEKS Speciality: Acuity: Ante Enc Type: Observation Med Service: Obstetrics Arrival: 08/14/2024 01:36:38 Discharge: Dispo Type: Address: [address] [place] [id number] Provider Notes: Diagnosis: Acute hypokalemia; Acute vomiting [...] range between ( 80.0 and 100.0 ) [place] Auto: 3.9 % -- Normal range between ( 4.0 and 14.0 ) MPV: 8.5 fL -- Normal range between ( 6.4 and 10.8 ) Neutro Auto: 90.4 % -- Normal range between ( 36.0 and 75.0 ) Platelet: 319.0 E9/L -- Normal range between ( 150.0 and 500.0 ) WBC: 20.2 E9/L -- Normal range between ( 4.0 and 11.0 ) [place] Absolute: 0.8 E9/L -- Normal range between [...] and 199 ) Li (more content not included)...NormalUniversity Hospitals Beachwood Medical CenterInpatient Patient Summaryon [id number] Patient SummaryInpatient Patient Summary [address] [address] Patient Discharge Instructions PERSON INFORMATION Name: INDU ST Date of : 1995 Current Date: 08/14/2024 20:12:22 PHYSICIANS Admitting Physician: Lucina ELLISON, Saundra Peace Primary Care Physician: Yasmin WELCH DO PCP Phone Number: [phone] Comment: Discharge Diagnosis: Acute hypokalemia; Acute vomiting [...] results: None Follow up: With: Address: When: [facility], [address] [place] [address] , [place] [address] Business (1) In 12 days 08/26/2024 Comments: Call for any problems. In the event that this physician does not participate in your insurance network, please consult with your insurance company to find a nearby participating provider. Comment: IALMA ROSA ERICA LYNN, have received the attached patient [...] Last Dose: Next Dose: multivitamin, ( 19 ([place])) Oral. Last Dose: Next Dose: naloxone (naloxone [...] more likely to de (more content not included)...[facility] HospitalInpatient Patient SummaryInpatient Patient Summary [address] [address] Patient Discharge Instructions PERSON INFORMATION Name: INDU ST Date of : 1995 Current Date: 08/14/2024 19:02:29 PHYSICIANS Admitting Physician: Saundra Verdugo MD Primary Care Physician: Yasmin WELCH DO PCP Phone Number: [phone] Comment: Discharge Diagnosis: Acute hypokalemia; Acute vomiting [...] Follow up: With: Address: When: [facility], [address] [place] [address] [place] [address] Business (1) In 12 days [...] Last Dose: Next Dose: multivitamin, ( 19 ([place])) Oral. Last Dose: Next Dose: naloxone (naloxone [...] develop this cond (more content not included)...Normal [facility] Medical CenterLipase Levelon 68-12-6362Accmdp Lvl58 unit/LNormal 13-58[facility] Medical CenterComment on above:Performed By: #### [id number] #### [facility] [address] [place], [place] [address]Kozbzfywohtwezo lipaseon 55-83-1711Lkqrnr [Catalytic activity/Vol]16 U/LNormal9-82[facility] Comment on above:Order Comment: Venipuncture immediately after or during the administration of Metamizole may lead to falsely low results. Testing should be performed immediately prior to Metamizole dosing.Performed By: #### 3040-3 #### CARI Mark ([id number]) [facility] ([facility]) [address] [place], [place] [address]Ovdjyfjxzl 96-68-3836Wtflyzib HS6.50 pg/mLLow10.10-27.10 [facility] CenterComment on above:Result Comment: The 95% CI (Confidence Interval) PPV (Positive Predictive Value) for myocardial infarction in females is 38 pg/mL, in males 51 pg/mL. The results should be used in conjunction with clinical conditions of myocardial infarction. (Access High Sensitivity Troponin I Instructions For Use, [employer] October 2017)Performed By: #### [id number] #### [facility] [address] [place] [address]Gvahlcwo I.cardiac panelon 32-87-8988Riluyypd I.cardiac panel High sensitivity method<1Ozjaeo1-29VygwvkarogPremier Health Atrium Medical Center Comment on above:Order Comment: Less than 99th [...] performed using a different testing methodology at [facility] than at other [facility]. Direct result comparisons should only be made within the same method.Performed By: #### 25482-7 #### CARI Mark ([id number]) [facility] ([facility]) [address] [place], [place] [address]D Drug Screenon 08-14-2024U Amph ScrNegativeNormalNEGATIVE [facility] CenterComment on above:Result Comment: Negative Cutoff: <1000 ng/mLPerformed By: #### [id number] #### [facility] [address], [place] [address]Z Shannen ScrNegativeNormalNEGATIVEUniversity [facility]als [facility] Comment on above:Result Comment: Negative Cutoff: <200 ng/mLPerformed By: #### [id number] #### [facility] [address] [place] [address], [place] [address] Benzodia ScrNegativeNormalNEGLakeHealth TriPoint Medical Center Comment on above:Result Comment: Negative Cutoff: <200 ng/mLPerformed By: #### [id number] #### [facility] [address] [place] [address], [place] [address]Y Cocaine ScrNegativeNormalNEGLakeHealth TriPoint Medical Center Comment on above:Result Comment: Negative Cutoff: <300 ng/mLPerformed By: #### [id number] #### [facility] [address] [place] [address] 51487U FentanylNegativeNormalNEGLakeHealth TriPoint Medical Center Comment on above:Result Comment: Negative Cutoff: <5 ng/mL These drug screen results are to be used for medical (i.e., treatment) purposes only. Unconfirmed drug screening results must not be used for non-medical purposes (e.g., employment testing, legal testing).Performed By: #### [id number] #### [facility] [address] [place] [address] 46683J PCP ScrNegativeNormalNEGLakeHealth TriPoint Medical Center Comment on above:Result Comment: Negative Cutoff: <25 ng/mL These drug screen results are to be used for medical (i.e., treatment) purposes only. Unconfirmed drug screening results must not be used for non-medical purposes (e.g., employment testing, legal testing).Performed By: #### [id number] #### [facility] [address] [place] [address] 35382R Cannab ScrPositiveAbnormalNEGATIVEUniversity Hospitals [facility] Comment on above:Result Comment: Result verified by repeat analysis, Unconfirmed by alternate method No Confirmation Requested by Physician Called to OB/Camron Upham Negative Cutoff: <50 ng/mLPerformed By: #### [id number] #### [facility] [address], [place] [address]Z Opiate ScrPositiveAbnormalNEGATIVEUniversity [facility]als [facility] Comment on above:Result Comment: Result verified by repeat analysis, Unconfirmed by alternate method No Confirmation Requested by Physician Called to OB/Camron Dereck Negative Cutoff: <300 ng/mLPerformed By: #### [id number] #### [facility] [address], [place] [address]M SG Autoon 08-14-2024U SG Automated1.689Ukxrdo2.003-1.040 [facility] CenterComment on above:Performed By: #### [id number] #### [facility] [address] [place] [address] 22993UF with Cult Rflxon 42-06-0936Zsuqv (U)YellowNormalYellowUniversity Hospitals Beachwood Medical CenterComment on above:Result Comment: Microscopic readings are only performed on those samples that meet specific criteria set forth by [facility].Performed By: #### [id number] #### [facility] [address] [place] [address] 11043Febbcbu Ql (U)3+ mg/dLAbnormalNegSt. Anthony's HospitalComment on above:Performed By: #### [id number] #### [facility] [address] [place] [address] 784[address]UY BloodNegativeNormalNegSt. Anthony's Hospital Comment on above:Performed By: #### [id number] #### [facility] [address] [place] [address] 99089VZ ClarityClearNormalClearUniversity Hospitals Beachwood Medical CenterComment on above:Performed By: #### [id number] #### [facility] [address] [place] [address] 26394YW GlucoseTraceAbnormalNegSt. Anthony's Hospital Comment on above:Performed By: #### [id number] #### [facility] [address], [place] [address]KD Hyal Jmvr2-6Lrbiwk2-3TlrbnrCleveland Clinic Akron General Lodi HospitalComment on above:Performed By: #### [id number] #### [facility] [address], [place] [address]LS Leuk EstNegativeNormalNegativeUniversity [facility]als [facility] Comment on above:Performed By: #### [id number] #### [facility] [address], [place] [address]VI Mucous2+ CD:[id number]ystal Clinic Orthopedic CenterComment on above:Performed By: #### [id number] #### [facility] [address], [place] [address]AQ NitriteNegativeNormalNegativeUniversity [facility]als [facility] Comment on above:Performed By: #### [id number] #### [facility] [address], [place] [address]FL pH6.0Invalid Interpretation Code5.0-9.0[facility] CenterComment on above:Performed By: #### [id number] #### [facility] [address], [place] [address]YR Protein1+ mg/dLAbnormalNegSt. Anthony's Hospital Comment on above:Performed By: #### [id number] #### [facility] [address], [place] [address]OZ CSU1-0Mtfzwf3-1YhtrmwCleveland Clinic Akron General Lodi HospitalComment on above: Performed By: #### [id number] #### [facility] [address], [place] [address]OO Spec Grav1.033Invalid Interpretation Code1.005-1.030[facility] Medical CenterComment on above:Performed By: #### [id number] #### [facility] [address], [place] [address]KV Squam Epithelial5-8Invalid Interpretation CodeUniversity Hospitals Beachwood Medical CenterComment on above:Performed By: #### [id number] #### [facility] [address], [place] [address]RX UrobilinogenNegativeNormalNegativeUniversity Hospitals Beachwood Medical CenterComment on above:Performed By: #### [id number] #### [facility] [address], [place] [address]OO QEK9-0Yakxgk6-9Vjjmwc R [facility] Shock Trauma CenterComment on above: Performed By: #### [id number] #### [facility] [address], [place] [address]Tmeepiwxgioa (U) [Mass/Vol]NegativeNormalNegativeUniversity Hospitals Beachwood Medical CenterComment on above:Performed By: #### [id number] #### [facility] [address], [place] [address]US Spec DescClean CatchNormalUniversity Hospitals Beachwood Medical CenterComment on above:Performed By: #### [id number] #### [facility] [address], [place] [address]TMCYSVSGAYTlnybca By: Kasia Graves on 65-04-1875Cajpwjob gravity (U) [Rel density]1.015 7Ntybrm3.003 - 1.040[facility] UA Auto SSURINALYSIS Ordered By: SYSTEM SYSTEM on 46-60-6440Eshbhznjf Ql (U)NegativeNormal Negativemg/dLVALIR REHABILITATION [facility] [place] UA Auto SSClarity (U)Clear (08/14/24 8:12 AM)NormalClearFTM UA Auto SSColor (U)Yellow 3 (08/14/24 8:12 AM)NormalYellowVALIR REHABILITATION [facility]OSP[facility] [place] UA Auto SSComment on above:Interpretive Data: Microscopic readings are only performed on those samples that meet specific criteria set forth by [facility].Epithelial cells.squamous Auto (Urine sed) [#/Area]5-8 graded/HPFInvalid Interpretation CodeVALIR REHABILITATION [facility]OSP[facility] [place] UA Auto SSGlucose Ql (U)Trace mg/dLInvalid Interpretation Code Negativemg/dLFTMC UA Auto SSHemoglobin Auto test strip (U) [Mass/Vol]Negative NormalNegativemg/dLFT UA Auto SSHyaline casts LM Ql (Urine sed)0-3 graded/LPF Normal0-3graded/LPFFTMC UA Auto SSKetones Auto test strip Ql (U)3+ mg/dLInvalid Interpretation CodeNegativemg/dLFT UA Auto SSLeukocyte esterase Auto test strip Ql (U)NegativeNormalNegativeLeu/uLFT UA Auto SSMucus Auto Ql (U)2+ graded/LPFInvalid Interpretation CodeNegativegraded/LPFFTMC UA Auto SSNitrite Auto test strip Ql (U)NegativeNormalNegativemg/dLFT UA Auto SSpH (U)6.0 *NA* (08/14/24 8:12 AM)Invalid Interpretation Code5.0 - 9.0[facility] UA Auto SSProtein Ql (U)1+ mg/dLInvalid Interpretation CodeNegativemg/dLVALIR [facility] [place] UA Auto SSRBC Ql (U)0-3 graded/HPFNormal0-3graded/HPFVALIR RE[facility] [place] UA Auto SSSpecific gravity (U) [Rel density] 1.033 *NA* (08/14/24 8:12 AM)Invalid Interpretation Code1.005 - 1.030[facility] UA Auto SS Urobilinogen (U) [Mass/Vol]NegativeNormalNegativemg/dLVALIR REHAB[facility]ATION [facility] [place] UA Auto SSWBC Auto (Urine sed) [#/Area]0-5 graded/HPFNormal0-5graded/HPFFT UA Auto SSURINALYSIS Ordered By: Bk Garduno on 66-96-2320WG Spec DescClean Catch (08/14/24 8:12 AM)NormalVALIR REHABILITATION [facility] [place] UA Auto SS us OB LIMITED 1+ FETUSESon 30-00-6805LJ OB LIMITED 1+ FETUSESInterpreted By: Leon Null and Dervishi Mario STUDY: US OB LIMITED 1+ FETUSES; 08/15/2024 2:14 am INDICATION: Signs/Symptoms:abdominal and chest pain during . COMPARISON: None. ACCESSION NUMBER(S): [id number] ORDERING CLINICIAN: LEÓN SPARROW TECHNIQUE: Multiple images [...] Leon Null 08/15/2024 2:58 AM Dictation workstation: [id number] Regional Medical CentereGFRon 13-48-7727oHMZ525 mL/min/1.73 o9Xospoo>=59Fisher R [facility] Shock Trauma CenterComment on above:Performed By: #### [id number] #### [facility] [address], [place] [address]FJP W Auto Differential panel (Bld)on 64-77-6960Bwsprssdl (Bld) [#/Vol]0.03 10*3/[facility] BeachwoodBasophils/100 WBC (Bld)0.2 %0.0 - 2.0 %[facility] HospitalEosinophils (Bld) [#/Vol]0.02 10*3/[facility], BeachwoodEosinophils/100 WBC (Bld)0.1 %0.0 - 6.0 %[facility] HospitalErythrocyte distribution width (RBC) [Ratio] 14.6 %High11.5 - 14.5 %[facility] HospitalHematocrit (Bld) [Volume fraction]40 %36.0 - 46.0 %[facility] HospitalHemoglobin (Bld) [Mass/Vol]13.6 g/dL12.0 - 16.0 g/dLUnWilson HealthImmakettering health troy granulocytes (Bld) [#/Vol]0.09 10*3/uLUnWilson HealthImdoctors hospital of springfield granulocytes/100 WBC (Bld)0.5 %0.0 - 0.9 %[facility] Comment on above:Immature Granulocyte Count (IG) includes promyelocytes, myelocytes and metamyelocytes but does not include bands. Percent differential counts (%) should be interpreted in the context of the absolute cell counts (cells/UL).Interpretation and review of laboratory resultsAbnormalUniMorrow County HospitalLymphocytes (Bld) [#/Vol]1.26 10*3/uLUnWilson HealthLymphocytes/100 WBC (Bld)7.6 %13.0 - 44.0 %[facility]H (RBC) [Entitic mass]29.4 pg26.0 - 34.0 pgUnWilson HealthMCHC (RBC) [Mass/Vol]34 g/dL32.0 - 36.0 g/dLSelect Medical Specialty Hospital - CincinnatiV (RBC) [Entitic vol]86 fL80 - 100 fLUniMorrow County HospitalMonocytes (Bld) [#/Vol]0.34 10*3/uLUnWilson Health Monocytes/100 WBC (Bld)2 %2.0 - 10.0 %[facility] Neutrophils (Bld) [#/Vol]14.92 10*3/uLSt. John of God Hospital Comment on above:Percent differential counts (%) should be interpreted in the context of the absolute cell counts (cells/uL).Neutrophils/100 WBC (Bld)89.6 % 40.0 - 80.0 %[facility] HospitalNucleated RBC/100 WBC (Bld) [Ratio]0 %[facility] HospitalPlatelets (Bld) [#/Vol]273 10*3/uL [facility] HospitalRBC (Bld) [#/Vol]4.63 10*6/uLGuernsey Memorial HospitalWBC (Bld) [#/Vol]16.7 10*3/uLSt. John of God HospitalUnWilson HealthBasophils (Bld) [#/Vol]0.03 x10*3/uL Normal0.00-0.10UnLima Memorial HospitalComment on above: Performed By: #### [id number] #### TERE RICH ([id number]) [facility]) [address] [place] [address] 64804Ldygxftaz/100 WBC (Bld)0.2 %Normal0.0-2.0UnLima Memorial HospitalComment on above:Performed By: #### 38415-6 #### TERE RICH ([id number]) [facility]) [address] [place] [address] 30242Ziahacecdpg (Bld) [#/Vol]0.02 x10*3/uLNormal0.00-0.70UnLima Memorial HospitalComment on above:Performed By: #### 47932-3 #### TERE RICH ([id number]) [facility]) [address] [place] [address] 40335Wdcxaqcprew/100 WBC (Bld)0.1 %Normal0.0-6.0UnLima Memorial HospitalComment on above:Performed By: #### 54261-1 #### TERE RICH ([id number]) [facility]) [address] [place] [address] 07638Rlcnhcyytoo distribution width (RBC) [Ratio]14.6 %High11.5-14.5 [facility] HospitalComment on above:Performed By: #### 26224-6 #### TERE RICH ([id number]) [facility]) [address] [place] [address] 61417Pnbuxcvthe (Bld) [Volume fraction]40.0 %Pqmaso28.0-46.0 [facility] HospitalComment on above:Performed By: #### 76278-1 #### TERE RICH ([id number]) [facility]) [address] [place] [address] 16176Xpvixseawk (Bld) [Mass/Vol]13.6 g/jJXptssc54.0-16.0UnLima Memorial HospitalComment on above:Performed By: #### 71398-4 #### TERE RICH (71502) [facility]) [address] [place] [address] 80148Vmgjfdaw granulocytes (Bld) [#/Vol]0.09 x10*3/uLNormal0.00-0.70 [facility] HospitalComment on above:Performed By: #### 07810-5 #### TERE RICH (42602) [facility]) [address] [place] [address] 20967Iinejeky granulocytes/100 WBC (Bld)0.5 %Normal0.0-0.9UnLima Memorial HospitalComment on above:Result Comment: Immature Granulocyte Count (IG) includes promyelocytes, myelocytes and metamyelocytes but does not include bands. Percent differential counts (%) should be interpreted in the context of the absolute cell counts (cells/UL).Performed By: #### 57019-6 #### TERE RICH (04786) [facility]) [address] [place] [address] 46903Qwqcmlgttbs (Bld) [#/Vol]1.26 x10*3/uLNormal1.20-4.80UnLima Memorial HospitalComment on above:Performed By: #### 90995-4 #### TERE RICH (35058) [facility]) [address] [place] [address] 91982Hncmzlbpmrq/100 WBC (Bld)7.6 %Yrgnry72.0-44.0UnLima Memorial HospitalComment on above:Performed By: #### 09446-5 #### TERE RICH ([id number]) [facility]) [facility] [place] [id number] (RBC) [Entitic mass]29.4 rdIgthhn87.0-34.0[facility] HospitalComment on above:Performed By: #### 73534-1 #### TERE RICH ([id number]) [facility]) [address] [place], [place] [address]05MCHC (RBC) [Mass/Vol]34.0 g/vYKxxhxv65.0-36.0UnLima Memorial HospitalComment on above:Performed By: #### 81216-7 #### TERE RICH (11700) [facility]) [address] [place], [place] [address]V (RBC) [Entitic vol]86 vTGihpdv88-963QwqxhwjzjaLima Memorial HospitalComment on above:Performed By: #### 45128-7 #### TERE RICH (19795) [facility]) [address] [place] [address] 82283Opmpmsdhm (Bld) [#/Vol]0.34 x10*3/uLNormal0.10-1.00UnLima Memorial HospitalComment on above:Performed By: #### 27578-8 #### TERE RICH (95093) [facility]) [address] [place] [address] 87546Qicasjgrs/100 WBC (Bld)2.0 %Normal2.0-10.0UnLima Memorial HospitalComment on above:Performed By: #### 31044-9 #### TERE RICH (84330) [facility]) [address] [place] [address] 78022Xmiikzzlbnl (Bld) [#/Vol]14.92 x10*3/uLHigh1.20-7.70UnLima Memorial HospitalComment on above:Result Comment: Percent differential counts (%) should be interpreted in the context of the absolute cell counts (cells/uL).Performed By: #### 76239-4 #### TERE RICH (51858) [facility]) [address] [place] [address] 98045Iufqmgpsyhv/100 WBC (Bld)89.6 %Upzhuz43.0-80.0UnLima Memorial HospitalComment on above:Performed By: #### 85835-1 #### TERE RICH (42783) [facility]) [address] [place] [address] 81755Algtcdttf RBC/100 WBC (Bld) [Ratio]0.0 /100 WBCsNormal0.0-0.0 [facility] HospitalComment on above:Performed By: #### 51794-1 #### TERE RICH (33929) [facility]) [address] [place] [address] 99644Taoefolwf (Bld) [#/Vol]273 x10*3/lIGmkakz013-814QdzwtalsxpLima Memorial HospitalComment on above:Performed By: #### 02190-2 #### TERE RICH ([id number]) [facility]) [address] [place] [address] 06010IAG (Bld) [#/Vol]4.63 x10*6/uLNormal4.00-5.20UnLima Memorial HospitalComment on above:Performed By: #### 88422-9 #### TERE RICH ([id number]) [facility]) [address] [place] [address] 48692BXI (Bld) [#/Vol]16.7 x10*3/uLHigh4.4-11.3UnLima Memorial HospitalComment on above:Performed By: #### 63822-3 #### TERE RICH (58854) [facility]) [address] [place] [address] 41185Pdovuywqsasjs metabolic 2000 panelon 72-80-6417Crhwaoh BCP dye [Mass/Vol]4.1 g/dL3.4 - 5.0 g/dLUnWilson HealthALP [Catalytic activity/Vol]45 U/L33 - 110 U/[facility] [place] [facility] CenterALT With P-5'-P [Catalytic activity/Vol]15 U/L7 - 45 U/[facility] on above:Patients treated with Sulfasalazine may generate falsely decreased results for ALT.Anion gap [Moles/Vol]14 mmol/L10 - 20 mmol/[facility] CenterAST With P-5'-P [Catalytic activity/Vol]15 U/L9 - 39 U/[facility] CenterBilirubin [Mass/Vol]0.4 mg/dL0.0 - 1.2 mg/dLUnWilson HealthCalcium [Mass/Vol]9.3 mg/dL8.6 - 10.3 mg/dLUnWilson HealthChloride [Moles/Vol]106 mmol/L98 - 107 mmol/[facility] [place] [facility] CenterCO2 [Moles/Vol]19 mmol/LLow21 - 32 mmol/[facility] CenterCreatinine [Mass/Vol]0.54 mg/dL0.50 - 1.05 mg/dLUnWilson HealtheGFR- PINFUniThe [facility] on above:Calculations of estimated GFR are performed using the 2020 CKD-EPI Study Refit equation without therace variable for the IDMS-Traceable creatinine methods. https://jasn.asnjournals.org/content//ASN.0272121619 Glucose [Mass/Vol]122 mg/dVEapi55 - 99 mg/dLUnWilson Health Interpretation and review of laboratory resultsAbnormalUniMorrow County HospitalPotassium [Moles/Vol]3.5 mmol/L3.5 - 5.3 mmol/[facility] CenterProtein [Mass/Vol]6.8 g/dL6.4 - 8.2 g/dLUnWilson HealthSodium [Moles/Vol]135 mmol/TZpu118 - 145 mmol/[facility] CenterUrea nitrogen [Mass/Vol]11 mg/dL6 - 23 mg/dLUnWilson HealthAlbumin BCP dye [Mass/Vol]4.1 g/dLNormal3.4-5.0UnLima Memorial HospitalComment on above:Performed By: #### 18402-0 #### TERE RICH ([id number]) [facility]) [facility] [place], [place] [address]ILE [Catalytic activity/Vol]45 U/HGhtghn97-321NpxcdokeryLima Memorial HospitalComment on above:Performed By: #### 41518-3 #### TERE RICH (06790) [facility]) [address] [place] [address] 41403JSB With P-5'-P [Catalytic activity/Vol]15 U/LNormal7-45 [facility] HospitalComment on above:Result Comment: Patients treated with Sulfasalazine may generate falsely decreased results for ALT.Performed By: #### 67763-1 #### TERE RICH (60927) [facility]) [address] [place] [address] 61931Gqicz gap [Moles/Vol]14 mmol/IXnmrlt75-04RxxngtsiekLima Memorial HospitalComment on above:Performed By: #### 04582-6 #### TERE RICH (67063) [facility]) [address] [place] [address] 49675HCP With P-5'-P [Catalytic activity/Vol]15 U/LNormal9-39 [facility] HospitalComment on above:Performed By: #### 92800-1 #### TERE RICH (93431) [facility]) [address] [place] [address] 73782Nfjxfxevx [Mass/Vol]0.4 mg/dLNormal0.0-1.2UnLima Memorial HospitalComment on above:Performed By: #### 49835-0 #### TERE RICH (67012) [facility]) [address] [place] [address] 88779Kmipiys [Mass/Vol]9.3 mg/dLNormal8.6-10.3UnLima Memorial HospitalComment on above:Performed By: #### 88853-9 #### TERE RICH (55793) [facility]) [address] [place] [address] 03565Gaxhlmzs [Moles/Vol]106 mmol/WJfekef73-945AxrjtnnvlyLima Memorial HospitalComment on above:Performed By: #### 50291-6 #### TERE RICH (35208) [facility]) [address] [place] [address] 51577IX2 [Moles/Vol]19 mmol/GCav03-09BaavryyvhwLima Memorial HospitalComment on above:Performed By: #### 72469-8 #### TERE RICH ([id number]) [facility]) [address] [place] [address] 42716Qawddtnhbf [Mass/Vol]0.54 mg/dLNormal0.50-1.05UnLima Memorial HospitalComment on above:Performed By: #### 31695-4 #### TERE RICH (53563) [facility]) [address] [place] [address] 46745FXR/1.73 sq M.predicted MDRD (S/P/Bld) [Vol rate/Area] mL/min/{1.73_m2}Normal>60UnLima Memorial HospitalComment on above:Result Comment: Calculations of estimated GFR are performed using the 2020 CKD-EPI Study Refit equation without the race variable for the IDMS-Traceable creatinine methods. https://jasn.asnjournals.org/content/early//ASN.3093157941Mgdskmowf By: #### 94071-0 #### TERE RICH (63587) [facility]) [address] [place] [address] 15771Hrexrva [Mass/Vol]122 mg/zBRkje87-42VmnrotbcjsLima Memorial HospitalComment on above:Performed By: #### 70802-7 #### TERE RICH ([id number]) [facility]) [address] [place] [address] 55651Upzpyurtk [Moles/Vol]3.5 mmol/LNormal3.5-5.3[facility] HospitalComment on above:Performed By: #### 35769-2 #### TERE RICH (10498) [facility]) [address] [place], [place] [address]Desfxtp [Mass/Vol]6.8 g/dLNormal6.4-8.2UnLima Memorial HospitalComment on above:Performed By: #### 71082-4 #### TERE RICH (13384) [facility]) [address] [place] [address] 18465Cimiqj [Moles/Vol]135 mmol/PIqz938-157OaqboqxdkoLima Memorial HospitalComment on above:Performed By: #### 96083-1 #### TERE RICH (68048) [facility]) [address] [place] [address] 91544Vjzf nitrogen [Mass/Vol]11 mg/dLNormal6-23UnLima Memorial HospitalComment on above:Performed By: #### 82623-7 #### TERE RICH (59085) [facility]) [address] [place] [address] 99500RBX 12-LEADon 00-08-6164YTP 12-LEADVentricular Rate 73 Atrial Rate 73 P-R Interval 102 QRS Duration 72 Q-T Interval 380 QTC Calculation(Bazett) 418 P [place] 81 R [place] 95 T [place] 61 QRS Count 12 Q Onset 220 P Onset 169 P Offset 202 T Offset 410 QTC Fredericia 405 Diagnosis Sinus rhythm with marked sinus arrhythmia with short [place] Rightward axis Borderline ECG No previous ECGs available See ED provider note for full interpretation and clinical correlation Confirmed by Lynsey Luna ([id number]) on 08/14/2024 2:04:30 PMNormalRiverview Medical CenterLipaseon 51-62-1707Tbolhq [Catalytic activity/Vol]16 U/L 9 - 82 U/LUnWilson HealthLipase [Catalytic activity/Vol]on 30-82-2813Awstcnfeidskpg and review of laboratory resultsNormalUniHouston Methodist The Woodlands HospitalvelandVenipuncture immediately after or during the administration of Metamizole may lead to falsely low results. Testing should be performed immediately prior to Metamizole dosing.[facility] HospitalUnWilson HealthMagnesiumon 30-78-8044Jsfqhtqdg [Mass/Vol]1.81 mg/dL1.60 - 2.40 mg/dLUnWilson HealthMagnesium [Mass/Vol]1.81 mg/dLNormal1.60-2.40UnLima Memorial Hospital Comment on above:Performed By: #### 17131-0 #### TERE RICH ([id number]) [facility] ([facility]) [address] [place] [address] 01407Ycxnwarmz [Mass/Vol]on 75-25-4873Jmpogmbmjygfqp and review of laboratory resultsNoRegency Hospital Cleveland WestNo Panel Informationon 53-35-7542SzefdsnwmqWilson HealthTriacylglycerol lipaseon 08-13-2024 Lipase [Catalytic activity/Vol]16 U/LNormal9-82UnLima Memorial HospitalComment on above:Order Comment: Venipuncture immediately after or during the administration of Metamizole may lead to falsely low results. Testing should be performed immediately prior to Metamizole dosing.Performed By: #### 3040-3 #### TERE RICH ([id number]) [facility]) [address] [place] [address] 60991Bgmooyklgt complete W Reflex Culture panel (U)on 08-13-2024 Appearance (U)Ex.TurbidAbnormalClearUnWilson HealthBilirubin (U) [Mass/Vol]NegativeNEGATIVE mg/dLUnWilson HealthColor (U) YellowLight-Yellow, Yellow, Dark-YellowUnWilson Health Crystals.amorphous Computer assisted (U) [#/Area]2+NONE, 1+, 2+ /HPFUnWilson HealthEpithelial cells.squamous Auto (Urine sed) [#/Area]1-9 (SPARSE)Reference range not established. /HPFUnWilson Health Glucose Auto test strip (U) [Mass/Vol]NormalNormal mg/dLUnWilson HealthInterpretation and review of laboratory resultsAbnormalUniMorrow County HospitalKetones (U) [Mass/Vol]80 (3+)AbnormalNEGATIVE mg/dL [facility] HospitalLeukocyte esterase Auto test strip Ql (U) NegativeNEGATIVEUnWilson HealthMucus Auto (Urine sed) [#/Area] 1+Reference range not established. /LPFUniversSt. Elizabeth Ann Seton Hospital of KokomoNitrite Auto test strip Ql (U)NegativeNEGATIVEUnWilson HealthpH (U)8.5 [pH]Abnormal5.0, 5.5, 6.0, 6.5, 7.0, 7.5, 8.0UnWilson Health Protein (U) [Mass/Vol]30 (1+)AbnormalNEGATIVE, 10 (TRACE), 20 (TRACE) mg/dL [facility] HospitalRBC (U) [#/Vol]NegativeNEGATIVE mg/dLUnWilson HealthRB Auto (Urine sed) [#/Area]6-10AbnormalNONE, 1-2, 3-5 /HPFGuernsey Memorial HospitalSpecific gravity (U) [Rel density]1.023 1.005 - 1.035UnWilson HealthUrobilinogen (U) [Mass/Vol]Normal Normal mg/dLGuernsey Memorial HospitalWBC Auto (Urine sed) [#/Area]6-10 Abnormal1-5, NONE /Parkwood HospitalUnWilson HealthAppearance (U)Ex.TurbidNormalClearUnLima Memorial HospitalComment on above:Performed By: #### 05475-3 #### TERE RICH ([id number]) [facility]) [address] [place] [address] 48263Tkudzqbve (U) [Mass/Vol]NegativeNormalNEGATIVEUnLima Memorial HospitalComment on above:Performed By: #### 74543-2 #### TERE RICH ([id number]) [facility]) [address] [place] [address] 91078Jqdzi (U)YellowNormalLight-Yellow, Yellow, Dark-Yellow [facility] HospitalComment on above:Performed By: #### 92306-5 #### TERE RICH ([id number]) [facility]) [address] [place] [address] 43004Avffttag.amorphous Computer assisted (U) [#/Area]2+ /HPFNormal NONE, 1+, 2+[facility] HospitalComment on above: Performed By: #### 72739-6 #### TERE RICH ([id number]) [facility]) [address] [place] [address] 12502Ufrriyztmh cells.squamous Auto (Urine sed) [#/Area]1-9 (SPARSE) NormalReference range not established.[facility] HospitalComment on above:Performed By: #### 37523-9 #### TERE RICH ([id number]) [facility]) [address] [place], [place] [address]Glucose Auto test strip (U) [Mass/Vol]NormalNormalNormal [facility] HospitalComment on above:Performed By: #### 19497-4 #### TERE RICH ([id number]) [facility]) [address] [place] [address] 76660Kerxhkm (U) [Mass/Vol]80 (3+)AbnormalNEGATIVEUnLima Memorial HospitalComment on above:Performed By: #### 47678-3 #### TERE RICH ([id number]) [facility]) [address] [place] [address] 79370Savbjzinn esterase Auto test strip Ql (U)NegativeNormalNEGATIVE [facility] HospitalComment on above:Performed By: #### 59197-5 #### TERE IRCH ([id number]) [facility]) [address] [place], [place] [address]Mucus Auto (Urine sed) [#/Area]1+ /LPFNormalReference range not established.[facility] HospitalComment on above: Performed By: #### 30773-7 #### TERE RICH ([id number]) [facility]) [address] [place] [address] 55884Cuxyxnb Auto test strip Ql (U)NegativeNormalNEGATIVEUnLima Memorial HospitalComment on above:Performed By: #### 83869-9 #### TERE RICH ([id number]) [facility]) [address] [place] [address] 62217rQ (U)8.5 [pH]Normal5.0, 5.5, 6.0, 6.5, 7.0, 7.5, 8.0UnLima Memorial HospitalComment on above:Performed By: #### 00327-3 #### TERE RICH ([id number]) [facility]) [address] [place] [address] 89780Ixlmdua (U) [Mass/Vol]30 (1+)AbnormalNEGATIVE, 10 (TRACE), 20 (TRACE)[facility] HospitalComment on above:Performed By: #### 85417-5 #### TERE RICH ([id number]) [facility] ([facility]) [address] [place] [address] 74071XFM (U) [#/Vol]NegativeNormalNEGATIVEUnLima Memorial HospitalComment on above:Performed By: #### 61606-4 #### TERE RICH ([id number]) [facility]) [address] [place] [address] 81353ELS Auto (Urine sed) [#/Area]6-10AbnormalNONE, 1-2, 3-5 [facility] HospitalComment on above:Performed By: #### 83385-8 #### TERE RICH ([id number]) [facility]) [address] [place] [address] 45725Reoryfug gravity (U) [Rel density]1.383Rtjivg5.005-1.035 [facility] HospitalComment on above:Performed By: #### 81442-9 #### TERE RICH ([id number]) [facility]) [address] [place] [address] 84251Zqdsdmqsvihv (U) [Mass/Vol]NormalNormalMount St. Mary HospitalComment on above:Performed By: #### 55118-1 #### TERE RICH ([id number]) [facility]) [address] [place], [place] [address]GNG Auto (Urine sed) [#/Area]4-44Ymdwuqmg0-7, [facility] County HospitalComment on above:Performed By: #### 99264-3 #### TERE SELENEKAITLYNN ([id number]) [facility]) [address] [place], [place] [address]CK CHEST 1 VIEWon [id number] CHEST 1 VIEWInterpreted By: Michelle Min, STUDY: XR CHEST 1 VIEW; 08/13/2024 10:38 am INDICATION: Signs/Symptoms:chest pressure after vomiting. COMPARISON: None. ACCESSION NUMBER(S): [id number] ORDERING CLINICIAN: MILAN LERNER FINDINGS: AP radiograph of the chest was provided. CARDIOMEDIASTINAL SILHOUETTE: Cardiomediastinal silhouette is normal in size and configuration. LUNGS: No consolidation, pulmonary edema, pleural effusion, or pneumothorax. ABDOMEN: No remarkable upper abdominal findings. BONES: No acute osseous changes. IMPRESSION: No evidence of acute cardiopulmonary process. Signed by: Michelle Min 08/13/2024 10:40 AM Dictation workstation: [id number] St. Mary HospitalXR Chest Single viewon 08-26-5195Dl evidence of acute cardiopulmonary process. Signed by: Michelle Min 08/13/2024 10:40 AM Dictation workstation: [id number] MMODALInterpreted By: Michelle Min, STUDY: XR CHEST 1 VIEW; 08/13/2024 10:38 am INDICATION: Signs/Symptoms:chest pressure after vomiting. COMPARISON: None. ACCESSION NUMBER(S): [id number] ORDERING CLINICIAN: MILAN LERNER FINDINGS: AP radiograph of the chest was provided. CARDIOMEDIASTINAL SILHOUETTE: Cardiomediastinal silhouette is normal in size and configuration. LUNGS: No consolidation, pulmonary edema, pleural effusion, or pneumothorax. ABDOMEN: No remarkable upper abdominal findings. BONES: No acute osseous changes. MMODALMaltbMichelle mallory MD, MS - 08/13/2024 Interpreted By: Michelle Min, STUDY: XR CHEST 1 VIEW; 08/13/2024 10:38 am INDICATION: Signs/Symptoms:chest pressure after vomiting. COMPARISON: None. ACCESSION NUMBER(S): [id number] ORDERING CLINICIAN: MILAN LERNER FINDINGS: AP radiograph of the chest was provided. CARDIOMEDIASTINAL SILHOUETTE: Cardiomediastinal silhouette is normal in size and configuration. LUNGS: No consolidation, pulmonary edema, pleural effusion, or pneumothorax. ABDOMEN: No remarkable upper abdominal findings. BONES: No acute osseous changes. IMPRESSION: No evidence of acute cardiopulmonary process. Signed by: Michelle Min 08/13/2024 10:40 AM Dictation workstation: [id number] [facility] Work Phone: Radiology Study observation (narrative)[facility] Work Phone: XR Chest Single viewOrdered By: Michelle Min on 28-46-8856JvxqetmmqxWilson Health Work Phone: Urinalysis macro (dipstick) panel (U)on [...] - 1.03[facility] Urobilinogen, UA0.20.2 - 12 mg/dLLee's Summit Hospital HealthcareBOX TESTon [id number] TEST SENT OUTUNITYHannibal Regional HospitalWzcrpjaxqzJQT4LVMVTMSVK HealthcareBOX2 07/10/24[facility] CLINISYBaptist HospitalUS OB TRANSVAGINALon [id number] OB TRANSVAGINALEXAM: US OB TRANSVAGINAL HISTORY: Follow [...] II, MD, PHD at 09-Jul-2024 08:43:53 AM [facility] TeleradiologyNormalNot AvailableComment on above:Order Comment: US OB VIABILITY PLEASE PERFORM TRANSVAGINAL ULTRASOUND IF INDICATED No LMP recorded.US OB TRANSVAGINALon [id number] OB TRANSVAGINALEXAM: US OB TRANSVAGINAL HISTORY: Bleeding [...] II, MD, PHD at 01-Jul-2024 07:14:28 PM [facility] TeleradiologyNormalNot AvailableComment on above:Order Comment: US OB VIABILITY PLEASE PERFORM TRANSVAGINAL ULTRASOUND IF INDICATED No LMP recorded (exact date).HCG ( test) Ql (U)on 06-24-2024 Interpretation and review of laboratory resultsAbnormalNOMS HealthcarePreg Test, UrPositiveNegativeNOMS HealthcareNOMS HealthcareUrinalysis macro (dipstick) panel (U)on 77-48-5310Ycubzadpk, UANegativeNegative - 4(70) +++ mg/dLNOMS HealthcareBlood, UAPositiveNegative - 50 Mick/mcLNOMS HealthcareComment on above: traceClarity, UAClearNOMS HealthcareColor, UAYellowNOMS HealthcareGlucose, UA NegativeNegative - 2000(110) ++++ mg/dLNOMS HealthcareInterpretation and review of laboratory resultsNormalNOMS HealthcareKetones, UANegativeNegative - 160(16) ++++ mg/dLNOMS HealthcareLeukocytes, UANegativeNegative - 500+++ Campos/mcLNOMS HealthcareNitrite, UANegativeNegative - PositiveNOMS HealthcarepH, UA75 - 9[facility] HealthcareProtein, UANegativeNegative - 2000(20) ++++ mg/dLNOMS HealthcareSpec Grav, UA1.0151 - 1.03[facility] HealthcareUrobilinogen, UA0.20.2 - 12 mg/dLNOMS HealthcareNOMS HealthcareBMPon 25-05-4188Vbhzz gap [Moles/Vol]8 mmol/LNormal6-16 [facility] CenterComment on above:Performed By: #### [id number] #### [facility] Laboratory [address], [place] [address]Jtgbkmx [Mass/Vol]8.1 mg/dLLow8.9-11.1FCleveland Clinic Akron General Lodi HospitalComment on above:Performed By: #### [id number] #### [facility] [address], [place] [address]Alrbjfvj [Moles/Vol]106 mmol/PSgglpn189-000NrjrirUniversity Hospitals Beachwood Medical CenterComment on above:Performed By: #### [id number] #### [facility] [address], [place] [address]DY0 [Moles/Vol]27 mmol/GQhqhue26-54KmabofUniversity Hospitals Beachwood Medical Center Comment on above:Performed By: #### [id number] #### [facility] [address], [place] [address]Xggwrkqrwb [Mass/Vol]0.6 mg/dLNormal0.5-1.3FCleveland Clinic Ak[facility] General Lodi HospitalComment on above:Performed By: #### [id number] #### [facility] [address], [place] [address]Oetnjpn [Mass/Vol]93 mg/eDKjqhsh81-382AczxxtUniversity Hospitals Beachwood Medical CenterComment on above:Performed By: #### [id number] #### [facility] [address], [place] [address]Ivtkoqtej [Moles/Vol]3.9 mmol/LNormal3.5-5.3FCleveland Clinic Akron General Lodi HospitalComment on above:Performed By: #### [id number] #### [facility] [address] [place] [address] 43829Dxdrqf [Moles/Vol]137 mmol/SGauotb274-689MdgihsUniversity Hospitals Beachwood Medical CenterComment on above:Performed By: #### [id number] #### [facility] [address] [place] [address] 46690Ukzl nitrogen [Mass/Vol]7 mg/dLNormal5-21[facility] CenterComment on above:Performed By: #### [id number] #### [facility] [address] [place] [address] 40938Yzrs nitrogen/Creatinine [Mass ratio]12 No KrozwHettou99-50 [facility] CenterComment on above:Performed By: #### [id number] #### [facility] [address] [place] [address] 64[address]HKI w/ Auto Diffon 67-36-5331Zlrjfzrfb/100 WBC (Bld)0.3 %Normal 0.0-2.0[facility] Medical CenterComment on above:Performed By: #### [id number] #### [facility] [address] [place] [address] 024[address]Jfaoxciay/Leukocytes Auto (Bld) [Pure # fraction]0.0 E9/LNormal 0.0-0.2FCleveland Clinic Ak[facility] General Lodi HospitalComment on above:Performed By: #### [id number] #### [facility] [address] [place] [address] 57193Xkkvvfcrgzf (Bld) [#/Vol]0.0 E9/LNormal0.0-0.5FCleveland Clinic Ak[facility] General Lodi HospitalComment on above:Performed By: #### [id number] #### [facility] [address] [place] [address] 83520Nopuwaflgtf/100 WBC (Bld)0.5 %Normal0.0-8.0[facility] CenterComment on above:Performed By: #### [id number] #### [facility] [address] [place] [address] 94810Plfqzbvihsi distribution width (RBC) [Ratio]14.7 %High10.9-14.2 [facility] CenterComment on above:Performed By: #### [id number] #### [facility] [address] [place] [address] 23674Ifstdkhkuh (Bld) [Volume fraction]32.2 %Low34.0-46.0[facility] Medical CenterComment on above:Performed By: #### [id number] #### [facility] [address] [place] [address] 28770Elywjbfrcv (Bld) [Mass/Vol]11.1 g/dLLow12.0-16.0[facility] CenterComment on above:Performed By: #### [id number] #### [facility] [address] [place] [address] 04892Xwiilpniula (Bld) [#/Vol]1.8 E9/LNormal1.0-4.0[facility] CenterComment on above:Performed By: #### [id number] #### [facility] [address] [place] [address] 09651Fyvujvrkxsd/100 WBC (Bld)18.1 %Uessnl54.0-50.0[facility] CenterComment on above:Performed By: #### [id number] #### [facility] [address] [place] [address] 05739IDM (RBC) [Entitic mass]30.4 xfNkmppy29.0-34.0[facility] CenterComment on above:Performed By: #### [id number] #### [facility] [address] [place] [address] 76681EUNQ (RBC) [Mass/Vol]34.5 g/uMDhthec71.4-36.0[facility] CenterComment on above:Performed By: #### [id number] #### [facility] [address], [place] [address]YFL (RBC) [Entitic vol]88.1 pDFroqxu25.0-100.0[facility] CenterComment on above:Performed By: #### [id number] #### [facility] [address] [place] [address] 74040Ophxdsqkj (Bld) [#/Vol]0.7 E9/LNormal0.2-1.0[facility] CenterComment on above:Performed By: #### [id number] #### [facility] [address] [place] [address] 48952Domphzzmpta (Bld) [#/Vol]7.2 E9/LNormal2.0-7.5FCleveland Clinic [facility] General Lodi HospitalComment on above:Performed By: #### [id number] #### [facility] [address] [place] [address] 97560Noxuakxxtif/100 WBC (Bld)73.7 %Kdkcrc53.0-75.0[facility] CenterComment on above:Performed By: #### [id number] #### [facility] [address] [place] [address] 71905Etkqqlcs mean volume (Bld) [Entitic vol]8.0 fLNormal6.4-10.8 [facility] CenterComment on above:Performed By: #### [id number] #### [facility] [address] [place] [address] 25409Rkgazuttq (Bld) [#/Vol]203.0 E9/VTvsaxt639.0-500.0[facility] CenterComment on above:Performed By: #### [id number] #### [facility] [address] [place] [address] 85622CNL (Bld) [#/Vol]3.7 E12/LLow4.3-5.9[facility] Comment on above:Performed By: #### [id number] #### [facility] [address] [place] [address] 36701XMV corrected for nucl RBC Auto (Bld) [#/Vol]9.7 E9/LNormal 4.0-11.0Aff[facility] Health Partnerser R [facility] Cow[facility] Shock Trauma CenterComment on above:Performed By: #### [id number] #### [facility] [address] [place], [place] [address]VMXREXMTQBoefjrh By: SYSTEM SYSTEM on 82-05-9104Hdjgy gap [Moles/Vol]8 mmol/LNormal6 - 16 mEq/LRemisol ChemCalcium [Mass/Vol]8.1 mg/dLLow 8.9 - 11.1 mg/dLRemisol ChemChloride [Moles/Vol]106 mmol/PRofsae142 - 111 mmol/L Remisol ChemCO2 [Moles/Vol]27 mmol/ZCoktyp84 - 31 mmol/LRemisol ChemCreatinine [Mass/Vol]0.6 mg/dLNormal0.5 - 1.3 mg/dLRemisol LwiprRNI425 mL/min/1.73 r2Vsidps >=59mL/min/1.73 d7Fgwkhww ChemGlucose [Mass/Vol]93 mg/kWIewfuj72 - 199 mg/dL Remisol ChemPotassium [Moles/Vol]3.9 mmol/LNormal3.5 - 5.3 mmol/LRemisol Chem Sodium [Moles/Vol]137 mmol/RMuyfoq005 - 145 mmol/LRemisol ChemUrea nitrogen [Mass/Vol]7 mg/dLNormal5 - 21 mg/dLRemisol ChemUrea nitrogen/Creatinine [Mass ratio]12 mg/laYqfexu85 - 20Remisol ChemDischarge Note-Nursingon 06-22-2024 Discharge Note-NursingDischarge Note-Nursing INDU ST :1995 Visit Date:06/19/2024 Inpatient Discharge Instructions Your Care Team Admitting Physician - Samantha QUINN DO Consulting Physician - Hospitalist Post Disch, Results Reviewer MNOTSERRAT ELLISON, JADE Verdugo MD, Saundra Peace Reason [...] care physician. This Is Your Medications List [facility] Prescription (Boost/Ensure) famotidine (famotidine 20 mg Tab) metoclopramide (Reglan 5 mg Tab) multivitamin, ( 19 ([place])) naloxone (naloxone 4 mg/0.1 mL nasal spray) [...] days Comments: Call for followup appointment Where: [address] , [place] [address]- Business (1) Follow Up with Carolyne Collazo When: Within 7 to 10 days Comments: Call for followup appointment Where: [address] [place] [address]- Business (1) Medications What How Much When Why Instructions Next Dose New famotidine (famotidine 20 mg Tab) 1 Tablets By Mouth 2 times a day Pickup at [facility] #[id number] 06/22 @ 9 pm New metoclopramide (Reglan 5 mg Tab) 1 Tablets By Mouth 4 times a day Pickup at [facility] #[id number] 06/22 before lunch New Misc Prescription (Boost/ Ensure) 0 Twice a day (before meals) Hyperemesis gravidarum 8oz BID x2-4 weeks. Disp #24 (twenty-four) Printed Prescription 06/22 @ 5 pm New naloxone (naloxone 4 mg/ 0.1 mL nasal spray) 4 Milligram Nasal Inhalation As Directed for suspected overdose symptoms Pickup at [facility] As directed New ondansetron (Zofran ODT 4 mg Tab-Dis) 1 Tablets By Mouth Every 6 hours [facility] As needed for nausea/vomiting New oxycodone (oxyCODONE 5 mg Cap) 1 Capsules By Mouth Every 12 hours as needed for for pain Hyperemesis gravidarum Intractable vomiting Pickup at [facility] 1985 As needed for pain New sucralfate (Carafate 1 g/ 10 mL Susp-Oral) 10 Milliliter By Mouth Four times a day (before meals and at bedtime) Pickup at [facility] #25396 06/22 before lunch Changed pantoprazole (Protonix 40 mg Tab-DR) 1 Tablets By Mouth Every day [id number] 06/23 @ 9 am Changed polyethylene glycol 3350 (MiraLax 3350 Oral Pwdr for Recon 249 gram) 17 Gram By Mouth Everyday 06/23 @ 9 am Unchanged multivitamin, ( 19 ([place])) See instructions Oral 06/23 @ 9 am Unchanged omega-3 polyunsaturated fatty acids (Fish Oil) 500 Milligram By Mouth Every day 06/23 @ 9 am [id number] [address] [place], [place] [id number] [phone] [facility]: [address] [place], [place] [id number] [phone] What How Much When Comments Stop Taking alprazolam (Xanax 0.5 mg Tab) 1 Tablets By Mouth 3 times a day as needed for for anxiety Stop Taking alprazolam (Xanax) 0.5 Milligram By Mouth 2 times a day Stop Taking cyclophosphamide (cyclophos (more content not included)...Normal [facility] CenterHEMATOLOGYOrdered By: SYSTEM SYSTEM on 06-22-2024 [...] E9/LNormal1.0 - 4.0 E9/LRemisol HemeLymphocytes/100 WBC (Bld)18.1 %Ktiwix04.0 - 50.0 %Remisol HemeMCH (RBC) [Entitic mass]30.4 osXzxarv24.0 - 34.0 pgRemisol HemeMCHC (RBC) [Mass/Vol]34.5 g/fDCgvibz96.4 - 36.0 gm/dLRemisol HemeMCV (RBC) [Entitic vol]88.1 vVLuwtck86.0 - 100.0 fLRemisol HemeMonocytes (Bld) [#/Vol]0.7 E9/LNormal0.2 - 1.0 E9/LRemisol HemeMonocytes/100 WBC (Bld)7.4 %Normal4.0 - 14.0 %Remisol HemeNeutrophils (Bld) [#/Vol]7.2 E9/LNormal2.0 - 7.5 E9/LRemisol HemeNeutrophils/100 WBC (Bld)73.7 % Qsecbp54.0 - 75.0 %Remisol HemePlatelet mean volume (Bld) [Entitic vol]8.0 fL Normal6.4 - 10.8 fLRemisol HemePlatelets (Bld) [#/Vol]203.0 E9/VPiqfyr699.0 - 500.0 E9/LRemisol HemeRBC (Bld) [#/Vol]3.7 E12/LLow4.3 - 5.9 E12/LRemisol Heme WBC corrected for nucl RBC Auto (Bld) [#/Vol]9.7 E9/LNormal4.0 - 11.0 E9/L Remisol HemeRespiratory Panel by PCRon [id number] DNA REEMA+non-probe Ql (Nph)Not detectedNormalUniversity Hospitals Beachwood Medical CenterComment on above:Result Comment: Testing was performed using nucleic acid amplification including Influenza A, Influenza A H1, Influenza A H3, Influenza B, RSV A, RSV B, Adenovirus, Human Metapneumovirus, Parainfluenza 1,2,3, and 4, Rhinovirus, Bordetella parapertussis/bronchiseptica, Bordetella holmesii, and Bordetella pertussis.Performed By: #### [id number] #### [facility] Laboratory [address], [place] [address]B. holmesii DNA REEMA+probe Ql (Unsp spec)Not detectedNormal [facility] Medical CenterComment on above:Performed By: #### [id number] #### [facility] [address], [place] [address]I. parapertussis DNA REEMA+probe Ql (Upper resp)Not detected NormalNot [facility] Behavioral Medical CenterComment on above:Performed By: #### [id number] #### [facility] Laboratory [address], [place] [address]ITVXUTHNUM PERTUSSIS DNA:PRTHR:PT:XXX:ORD:Not detectedNormalNot DetectedUniversity Hospitals Beachwood Medical CenterComment on above:Performed By: #### [id number] #### Sandra R Adams [facility] [address], [place] [address]DXOOV H1 RNA REEMA+non-probe Ql (Nph)Not detectedNormalUniversity Hospitals Beachwood Medical CenterComment on above:Performed By: #### [id number] #### Sandra R Adams [facility] [address], [place] [address]KUKWA H3 RNA REEMA+non-probe Ql (Nph)Not detectedNormalUniversity Hospitals Beachwood Medical CenterComment on above:Performed By: #### [id number] #### [facility] R Adams [facility] [address], [place] [address]NGOPO RNA REEMA+non-probe Ql (Nph)Not detectedNormalUniversity Hospitals Beachwood Medical CenterComment on above:Performed By: #### [id number] #### [facility] [address], [place] [address]JEQPZ RNA REEMA+non-probe Ql (Nph)Not detectedNormKettering Health MiamisburgComment on above:Performed By: #### [id number] #### [facility] R [facility] [address], [place] [address]Vywkp MetapneumovirusNot detectedNoSamaritan North Health CenterComment on above:Result Comment: This test result should be correlated with clinical presentations and medical history by a healthcare provider to determine its clinical significance.Performed By: #### [id number] #### [facility] [address], [place] [address]Svsqmlpqsuudo virus 1 RNA REEMA+non-probe Ql (Nph)Not detected [facility] HospitalComment on above:Performed By: #### [id number] #### [facility] R Adams [facility] [address], [place] [address]Gwfyrxaapvmyn virus 2 RNA REEMA+non-probe Ql (Nph)Not detected NormalUniversity Hospitals Beachwood Medical CenterComment on above:Performed By: #### [id number] #### [facility] R [facility] [address], [place] [address]Zsoklrnvpysnd virus 3 RNA REEMA+non-probe Ql (Nph)Not detected NormalUniversity Hospitals Beachwood Medical CenterComment on above:Performed By: #### [id number] #### [facility] R [facility] [address], [place] [address]Viufnjtjtkxsc virus 4 RNA REEMA+non-probe Ql (Nph)Not detected [facility] HospitalComment on above:Performed By: #### [id number] #### Sandra R Adams [facility] [address] [place] [address]Ivsn Panel Intrl QCPassNormalUniversity Hospitals Beachwood Medical CenterComment on above:Performed By: #### [id number] #### Sandra R Adams [facility] [address] [place] [address]Udazdnlmpv+Enterovirus RNA REEMA+non-probe Ql (Nph)Detected AbnormalUniversity Hospitals Beachwood Medical CenterComment on above:Performed By: #### [id number] #### [facility] R [facility] [address] [place] [address]WOR A RNA REEMA+probe Ql (Nph)Not detectedNormalUniversity Hospitals Beachwood Medical CenterComment on above:Performed By: #### [id number] #### [facility] R Adams [facility] [address] [place] [address]ZSV B RNA REEMA+probe Ql (Nph)Not detectedNormKettering Health MiamisburgComment on above:Performed By: #### [id number] #### [facility] [address], [place] [address]hHCXza 49-41-3968mUYS905 mL/min/1.73 q4Rnzmgb>=59University [facility]als Beachwood Medical CenterComment on above:Performed By: #### [id number] #### [facility] R Adams [facility] [address] [place] [address]BBQof 11-52-3575Kqiqk gap [Moles/Vol]9 mmol/LNormal6-16University [facility]als Beachwood Medical CenterComment on above:Performed By: #### [id number] #### [facility] [address], [place] [address]Ubtkqwi [Mass/Vol]8.3 mg/dLLow8.9-11.1FCleveland Clinic Akron General Lodi HospitalComment on above:Performed By: #### [id number] #### [facility] [address], [place] [address]Raodkxtl [Moles/Vol]107 mmol/HOmbhzw954-228FwbbanUniversity Hospitals Beachwood Medical CenterComment on above:Performed By: #### [id number] #### [facility] [address], [place] [address]TT0 [Moles/Vol]24 mmol/BMpogpa52-04UejuazUniversity Hospitals Beachwood Medical Center Comment on above:Performed By: #### [id number] #### [facility] [address], [place] [address]Dhclgcdwmk [Mass/Vol]0.6 mg/dLNormal0.5-1.3FCleveland Clinic [facility] Lodi HospitalComment on above:Performed By: #### [id number] #### [facility] [address], [place] [address]Txyeuvz [Mass/Vol]95 mg/yDVcynmm83-636XouayqUniversity Hospitals Beachwood Medical CenterComment on above:Performed By: #### [id number] #### [facility] [address], [place] [address]Bqvcyuutk [Moles/Vol]3.6 mmol/LNormal3.5-5.3FCleveland Clinic [facility] Lodi HospitalComment on above:Performed By: #### [id number] #### [facility] [address], [place] [address]Kiyfns [Moles/Vol]136 mmol/YUlurus361-645IxsdyyUniversity Hospitals Beachwood Medical CenterComment on above:Performed By: #### [id number] #### [facility] [address], [place] [address]Fsdx nitrogen [Mass/Vol]9 mg/dLNormal5-21[facility] Beachwood Medical CenterComment on above:Performed By: #### [id number] #### [facility] [address], [place] [address]Hkml nitrogen/Creatinine [Mass ratio]15 No YaufsXreyzw50-54 [facility] Beach[facility] Medical CenterComment on above:Performed By: #### [id number] #### [facility] [address], [place] [address]HUK w/ Auto Diffon 77-57-0832Ouwwsuklg/100 WBC (Bld)0.2 %Normal 0.0-2.0[facility] Beachwood Medical CenterComment on above:Performed By: #### [id number] #### [facility] [address], [place] [address]Lcxvliwme/Leukocytes Auto (Bld) [Pure # fraction]0.0 E9/LNormal 0.0-0.2FC[facility] Clinic [facility]odi HospitalComment on above:Performed By: #### [id number] #### [facility] [address], [place] [address]Wduqqnadtpg (Bld) [#/Vol]0.1 E9/LNormal0.0-0.5FCleveland Clinic Ak[facility] General Lodi HospitalComment on above:Performed By: #### [id number] #### [facility] [address], [place] [address]Zwynrswjqud/100 WBC (Bld)0.5 %Normal0.0-8.0[facility] Beachwood Medical CenterComment on above:Performed By: #### [id number] #### [facility] [address], [place] [address]Cxgszchkmms distribution width (RBC) [Ratio]14.3 %High10.9-14.2 [facility] Beach[facility] Medical CenterComment on above:Performed By: #### [id number] #### [facility] [address], [place] [address]Hfzfstfuzp (Bld) [Volume fraction]35.5 %Uaekze42.0-46.0[facility] Beachwood Medical CenterComment on above:Performed By: #### [id number] #### [facility] [address] [place] [address]Jwkhgrqpmh (Bld) [Mass/Vol]12.1 g/kSYqsces71.0-16.0[facility] Beach[facility] Medical CenterComment on above:Performed By: #### [id number] #### [facility] [address] [place] [address]Kvsgkkhvkbl (Bld) [#/Vol]1.2 E9/LNormal1.0-4.0[facility] Beach[facility] Medical CenterComment on above:Performed By: #### [id number] #### [facility] [address] [place] [address]Iqahtjiwywj/100 WBC (Bld)8.0 %Low14.0-50.0[facility] Beach[facility] Medical CenterComment on above:Performed By: #### [id number] #### [facility] [address] [place] [address]DTT (RBC) [Entitic mass]29.9 alXkuzqb84.0-34.0[facility] Beach[facility] Medical CenterComment on above:Performed By: #### [id number] #### [facility] [address] [place] [address]VJYK (RBC) [Mass/Vol]34.2 g/eBKatvzv79.4-36.0[facility] Medical CenterComment on above:Performed By: #### [id number] #### [facility] [address] [place] [address]ITD (RBC) [Entitic vol]87.5 qLSkhvsg05.0-100.0[facility] Beach[facility] Medical CenterComment on above:Performed By: #### [id number] #### [facility] [address] [place] [address]Mwyfniroz (Bld) [#/Vol]0.9 E9/LNormal0.2-1.0[facility] Beach[facility] Medical CenterComment on above:Performed By: #### [id number] #### [facility] [address] [place] [address]Spqafnzanqp (Bld) [#/Vol]12.4 E9/LHigh2.0-7.5FCleveland Clinic [facility] Lodi HospitalComment on above:Performed By: #### [id number] #### [facility] [address] [place] [address]Ekddqtymbby/100 WBC (Bld)84.9 %High36.0-75.0[facility] Beach[facility] Medical CenterComment on above:Performed By: #### [id number] #### [facility] [address] [place] [address]Cvafvqtd mean volume (Bld) [Entitic vol]8.1 fLNormal6.4-10.8 [facility] Medical CenterComment on above:Performed By: #### [id number] #### [facility] [address] [place] [address]Pzxumokwq (Bld) [#/Vol]221.0 E9/SRpxfpx212.0-500.0[facility] CenterComment on above:Performed By: #### [id number] #### [facility] [address] [place] [address]KBI (Bld) [#/Vol]4.1 E12/LLow4.3-5.9[facility] Comment on above:Performed By: #### [id number] #### [facility] [address] [place] [address]SIU corrected for nucl RBC Auto (Bld) [#/Vol]14.6 E9/LHigh 4.0-11.0[facility] Beach[facility] Medical CenterComment on above:Result Comment: Peripheral smear review performed.Performed By: #### [id number] #### [facility] [address] [place] [address] 00684DMRNZLIYTJjmylya By: SYSTEM SYSTEM on 33-24-8600Mvptx gap [Moles/Vol]9 mmol/LNormal6 - 16 mEq/LRemisol ChemCalcium [Mass/Vol]8.3 mg/dLLow 8.9 - 11.1 mg/dLRemisol ChemChloride [Moles/Vol]107 mmol/AMiepww060 - 111 mmol/L Remisol ChemCO2 [Moles/Vol]24 mmol/TEvcdyc89 - 31 mmol/LRemisol ChemCreatinine [Mass/Vol]0.6 mg/dLNormal0.5 - 1.3 mg/dLRemisol CudlyFGY595 mL/min/1.73 d4Kemlao >=59mL/min/1.73 n7Ycaxewu ChemGlucose [Mass/Vol]95 mg/eVKurgwq76 - 199 mg/dL Remisol ChemLipase [Catalytic activity/Vol]25 U/UDbjjpc71 - 58 unit/LRemisol ChemPotassium [Moles/Vol]3.6 mmol/LNormal3.5 - 5.3 mmol/LRemisol ChemSodium [Moles/Vol]136 mmol/QAofaef871 - 145 mmol/LRemisol ChemUrea nitrogen [Mass/Vol]9 mg/dLNormal5 - 21 mg/dLRemisol ChemUrea nitrogen/Creatinine [Mass ratio]15 mg/lnBuvmdz84 - 20Remisol ChemEstradiolon 67-56-6472E6 [Mass/Vol]1082.0 pg/mL Invalid Interpretation [facility] CenterComment on above:Result Comment: Adult Female Range Follicular phase 12.5 - 166.0 Ovulation phase 85.8 - 498.0 Luteal phase 43.8 - 211.0 Postmenopausal <6.0 - 54.7 1st trimester 215.0 - >4300.0 Carol[place] ECLIA methodology Performed at: [facility] [address] [id number] PhD Randa OchoaPerformed By: #### [id number] #### [facility] R [facility] [address] [place] [address]XZPITWYEVMEhwiweb By: SYSTEM SYSTEM on 55-37-2767Uvrzjnsmk/100 WBC (Bld)0.2 %Normal0.0 - 2.0 %Remisol HemeBasophils/Leukocytes Auto (Bld) [Pure # fraction]0.0 E9/LNormal0.0 - 0.2 E9/LRemisol HemeEosinophils (Bld) [#/Vol]0.1 E9/LNormal0.0 - 0.5 E9/LRemisol HemeEosinophils/100 WBC (Bld)0.5 %Normal0.0 - 8.0 %Remisol HemeErythrocyte distribution width (RBC) [Ratio]14.3 %High10.9 - 14.2 %Remisol HemeHematocrit (Bld) [Volume fraction]35.5 %Rpyvlj65.0 - 46.0 % Remisol HemeHemoglobin (Bld) [Mass/Vol]12.1 g/oEDabvov51.0 - 16.0 gm/dLRemisol HemeLymphocytes (Bld) [#/Vol]1.2 E9/LNormal1.0 - 4.0 E9/LRemisol Heme Lymphocytes/100 WBC (Bld)8.0 %Low14.0 - 50.0 %Remisol HemeMCH (RBC) [Entitic mass]29.9 joVynqjw18.0 - 34.0 pgRemisol HemeMCHC (RBC) [Mass/Vol]34.2 g/dLNormal 31.4 - 36.0 gm/dLRemisol HemeMCV (RBC) [Entitic vol]87.5 dNQnxpxs00.0 - 100.0 fL Remisol HemeMonocytes (Bld) [#/Vol]0.9 E9/LNormal0.2 - 1.0 E9/LRemisol Heme Monocytes/100 WBC (Bld)6.4 %Normal4.0 - 14.0 %Remisol HemeNeutrophils (Bld) [#/Vol]12.4 E9/LHigh2.0 - 7.5 E9/LRemisol HemeNeutrophils/100 WBC (Bld)84.9 % High36.0 - 75.0 %Remisol HemePlatelet mean volume (Bld) [Entitic vol]8.1 fL Normal6.4 - 10.8 fLRemisol HemePlatelets (Bld) [#/Vol]221.0 E9/MLbpuqd943.0 - 500.0 E9/LRemisol HemeRBC (Bld) [#/Vol]4.1 E12/LLow4.3 - 5.9 E12/LRemisol Heme WBC corrected for nucl RBC Auto (Bld) [#/Vol]14.6 E9/LHigh4.0 - 11.0 E9/LRemisol HemeComment on above:Result Comment: Peripheral smear review performed.Lipase Levelon 72-77-8930Laxqip [Catalytic activity/Vol]25 U/LZqxvqb53-85QmeflbUniversity Hospitals Beachwood Medical CenterComment on above:Performed By: #### [id number] #### [facility] [address], [place] [address]mXRIty 18-34-8006xRQF995 mL/min/1.73 b5Apxaqf>=59[facility] CenterComment on above:Performed By: #### [id number] #### [facility] [address], [place] [address]FSTyr 09-63-2708Rwmqc gap [Moles/Vol]10 mmol/LNormal6-16[facility] Medical CenterComment on above:Performed By: #### [id number] #### [facility] [address], [place] [address]Axfjoaj [Mass/Vol]8.5 mg/dLLow8.9-11.1FCleveland Clinic [facility] Lodi HospitalComment on above:Performed By: #### [id number] #### [facility] [address], [place] [address]Ilbydixf [Moles/Vol]107 mmol/WOemsqk645-959LhhnjsUniversity Hospitals Beachwood Medical CenterComment on above:Performed By: #### [id number] #### [facility] [address], [place] [address]UU5 [Moles/Vol]23 mmol/BOkhawk51-73ZpbfnjUniversity Hospitals Beachwood Medical Center Comment on above:Performed By: #### [id number] #### [facility] [address], [place] [address]Lhhxlcdbtx [Mass/Vol]0.6 mg/dLNormal0.5-1.3FC[facility] Clinic [facility] Lodi HospitalComment on above:Performed By: #### [id number] #### [facility] [address], [place] [address]Ubxcyvr [Mass/Vol]106 mg/kQJotyyb77-502MqfwjnUniversity Hospitals Beachwood Medical CenterComment on above:Performed By: #### [id number] #### [facility] [address], [place] [address]Ulwhhaldx [Moles/Vol]3.5 mmol/LNormal3.5-5.3FC[facility] HospitalComment on above:Performed By: #### [id number] #### [facility] [address], [place] [address]Tmohkj [Moles/Vol]136 mmol/ELisjmq964-175CehhzvUniversity Hospitals Beachwood Medical CenterComment on above:Performed By: #### [id number] #### [facility] [address], [place] [address]Onpy nitrogen [Mass/Vol]10 mg/dLNormal5-21[facility] CenterComment on above:Performed By: #### [id number] #### [facility] [address], [place] [address]Ghlm nitrogen/Creatinine [Mass ratio]17 No NnuqmHzfezw24-65 [facility] CenterComment on above:Performed By: #### [id number] #### [facility] [address], [place] [address]XpTN Quanton 06-28-9203HEV.beta subunit Hj61206 m[IU]/mLHigh1-3 [facility] CenterComment on above:Result Comment: 'F NON < 1 - 3' ' 0.2 - 1 WEEK = 5 TO 50' ' 1 - 2 WEEKS = 50 - 500' ' 2 - 3 WEEKS = 100 - 5000' ' 3 - 4 WEEKS = 500 - 36065' ' 4 - 5 WEEKS = 1000 - 96730' ' 5 - 6 WEEKS = 19166 - 014958' ' 6 - 8 WEEKS = 18618 - 029920' ' 8 - 12 WEEKS = 46974 - 392888'Performed By: #### [id number] #### [facility] R [facility] [address], [place] [address]WNY w/Indiceson 09-12-7953Hhecmfcmkxg distribution width (RBC) [Ratio]14.6 %High10.9-14.2FCleveland Clinic [facility] Lodi HospitalComment on above:Performed By: #### [id number] #### [facility] [address] [place] [address]Baqliipiso (Bld) [Volume fraction]36.5 %Mbesut16.0-46.0[facility] CenterComment on above:Performed By: #### [id number] #### [facility] [address] [place] [address]Tygvmuwljz (Bld) [Mass/Vol]12.5 g/bHZujqne90.0-16.0[facility] CenterComment on above:Performed By: #### [id number] #### [facility] [address] [place] [address]YEB (RBC) [Entitic mass]29.6 lfDmeffh35.0-34.0[facility] CenterComment on above:Performed By: #### [id number] #### [facility] [address] [place] [address]TWEY (RBC) [Mass/Vol]34.1 g/fHEnqlga49.4-36.0[facility] CenterComment on above:Performed By: #### [id number] #### [facility] [address] [place] [address]66[address]MDS (RBC) [Entitic vol]86.8 lQBdyvyf91.0-100.0[facility] CenterComment on above:Performed By: #### [id number] #### [facility] [address] [place] [address] 620[address]Onffhohl778.0 E9/UAxqfza426.0-500.0[facility] Comment on above:Performed By: #### [id number] #### [facility] [address] [place] [address]Evizqewc mean volume (Bld) [Entitic vol]7.8 fLNormal6.4-10.8 [facility] CenterComment on above:Performed By: #### [id number] #### [facility] [address], [place] [address]OVU (Bld) [#/Vol]4.2 E12/LLow4.3-5.9[facility] Comment on above:Performed By: #### [id number] #### [facility] [address], [place] [address]VRU size Nom (Bld)NORMALInvalid Interpretation CodeUniversity Hospitals Beachwood Medical CenterComment on above:Performed By: #### [id number] #### [facility] [address], [place] [address]DGX corrected for nucl RBC Auto (Bld) [#/Vol]17.7 E9/LHigh 4.0-11.0[facility] CenterComment on above:Performed By: #### [id number] #### [facility] [address], [place] [address]YCVTUCDNDLmgbzpp By: SYSTEM SYSTEM on 37-86-4112Wmbkd gap [Moles/Vol]10 mmol/LNormal6 - 16 mEq/LRemisol ChemCalcium [Mass/Vol]8.5 mg/dLLow 8.9 - 11.1 mg/dLRemisol ChemChloride [Moles/Vol]107 mmol/IYaqsxu732 - 111 mmol/L Remisol ChemCO2 [Moles/Vol]23 mmol/ODzkgfm75 - 31 mmol/LRemisol ChemCreatinine [Mass/Vol]0.6 mg/dLNormal0.5 - 1.3 mg/dLRemisol JpftvIMK904 mL/min/1.73 u2Seonyn >=59mL/min/1.73 a9Jqmrvlz ChemGlucose [Mass/Vol]106 mg/fVXdjvsh31 - 199 mg/dL Remisol ChemMagnesium [Mass/Vol]1.8 mg/dLNormal1.3 - 2.4 mg/dLRemisol Chem Potassium [Moles/Vol]3.5 mmol/LNormal3.5 - 5.3 mmol/LRemisol ChemSodium [Moles/Vol]136 mmol/NWqobgr132 - 145 mmol/LRemisol ChemUrea nitrogen [Mass/Vol] 10 mg/dLNormal5 - 21 mg/dLRemisol ChemUrea nitrogen/Creatinine [Mass ratio]17 mg/ouGdyjqf60 - 20Remisol ChemED Note-Physicianon 94-26-7349XS Note-PhysicianED Note-Physician Basic Information Time Seen: Johny [...] time. Her only concern was that the infant. Gallbladder ultrasound was negative for gallbladder disease. I rechecked the patient shortly before 4 PM. The patient states that the vomiting returned and withthe return of the vomiting the severe pain returned. We have been unable to control the vomiting here. She states she has a history of previous esophagitis which is verified on her chart. I discussedthe case with her RN INTERNSH[facility], Dr. Meade. He states the patient can be admitted to medicine he will consult. I discussed case with Dr. Gilbert from the hospitalist staff. He would prefer to consult but have the patient admitted to RN [facility]. Assessment/Plan 1. Esophagitis (K20.90: Esophagitis, unspecified without [...] over 20 minute(s) So (more content not included)...[facility] HospitalComment on above:Result Comment: Electronically Signed By: Boo Pina M.D. H\.br\Date and Time Signed: 06/20/2501:15 EDT\.br\Electronically Co-Signed By: Keith Martinez Comment: Electronically Signed By: Boo Pina M.D. H\.br\Date and Time Signed: 06/20/2501:15 EDT\.br\Electronically Co-Signed By: Johny Laura MD\.br\Date and Time Co-Signed: 06/19/24 17:01 EDTHEMATOLOGYOrdered By: SYSTEM SYSTEM on 43-77-9295Amlbawmzuih distribution width (RBC) [Ratio]14.6 %High10.9 - 14.2 %Remisol HemeHematocrit (Bld) [Volume fraction]36.5 %Yxifzr98.0 - 46.0 %Remisol HemeHemoglobin (Bld) [Mass/Vol]12.5 g/uWPkyooy32.0 - 16.0 gm/dL Remisol HemeMCH (RBC) [Entitic mass]29.6 ueDqgwkw63.0 - 34.0 pgRemisol HemeMCHC (RBC) [Mass/Vol]34.1 g/kEXbcgrg96.4 - 36.0 gm/dLRemisol HemeMCV (RBC) [Entitic vol]86.8 lNRdzeuk26.0 - 100.0 fLRemisol ZpnuYefowcvo592.0 E9/RHcpgxk933.0 - 500.0 E9/LRemisol HemePlatelet mean volume (Bld) [Entitic vol]7.8 fLNormal6.4 - 10.8 fLRemisol HemeRBC (Bld) [#/Vol]4.2 E12/LLow4.3 - 5.9 E12/LRemisol HemeRBC size Nom (Bld)NORMAL *NA* (06/20/24 6:53 AM)Invalid Interpretation CodeRemisol HemeWBC corrected for nucl RBC Auto (Bld) [#/Vol]17.7 E9/LHigh4.0 - 11.0 E9/LRemisol HemeInterdisciplinary Note - Case Manageron 82-22-0232Nnnhjveuzqhahcypm Note - Historical Interpreter Interdisciplinary Note - Historical Interpreter CRM to room 315 Patient is alert [...] Dr Gilbert is adding IV fluids and ReglanNormalUniversity Hospitals [facility] Center Comment on above:Result Comment: Electronically Signed By: Manju Man\Date and Time Signed: 06/20/24 12:06 EDTMagnesiumon 05-49-0440Cwubzsgtp [Mass/Vol]1.8 mg/dLNormal1.3-2.4Fisher [facility] CenterComment on above: Performed By: #### [id number] #### [facility] [address], [place] [address]Xmejnnnrbrdkxm 11-28-8668Rjlzsiqlpgxz Lvl67.98 ng/mLInvalid Interpretation CodeUniversity Hospitals Beachwood Medical CenterComment on above:Result Comment: 'F NON FOLLICULAR = 0.10 - 0.60' 'LUTEAL = 3.00 - 17.5' 'MIDLUTEAL = 3.30 - 18.6' 'POST-MENOPAUSE = 0.10 - 0.40' '-FIRST TRIMESTER = 8.30 - 66.5' 'SECOND TRIMESTER = 18.9 - 66.1' 'THIRD TRIMESTER = 35.8 - 312.4' 'MALES = 0.14 - 2.06' Result Verified by DilutionPerformed By: #### [id number] #### [facility] [address], [place] [address]HB Transvaginalon 12-07-3033XE Transvaginal Exam Date/Time: 06/20/2024 07:55 EDT Reason [...] corresponding gestational age +/- 1 week are: Good [place] Rump Length: 0.4 cm Composite Ultrasound Age: [...] Oneil Valadez MD Transcribed by: JURGEN Technologist: [facility] PrebleeGFRon 87-70-3124aXHO108 mL/min/1.73 i5Vohzhx>=59[facility] CenterComment on above:Performed By: #### [id number] #### [facility] [address], [place] [address]Khhiuqvfq 88-84-2398Nkycwok [Catalytic activity/Vol]84 U/L Jqousy18-722ZpfgjlUniversity Hospitals Beachwood Medical CenterComment on above:Performed By: #### [id number] #### [facility] [address], [place] [address]XSZzl 33-44-9143Esymy gap [Moles/Vol]13 mmol/LNormal6-16[facility] CenterComment on above:Performed By: #### [id number] #### [facility] [address], [place] [address]Sxmaxrc [Mass/Vol]9.0 mg/dLNormal8.9-11.1FCleveland Clinic Ak[facility] General Lodi HospitalComment on above:Performed By: #### [id number] #### [facility] [address], [place] [address]Laqxrvei [Moles/Vol]107 mmol/CCthjar247-874ZpdabaUniversity Hospitals Beachwood Medical CenterComment on above:Performed By: #### [id number] #### [facility] [address], [place] [address]KF5 [Moles/Vol]21 mmol/IVjxfbb83-03TtbntvUniversity Hospitals Beachwood Medical Center Comment on above:Performed By: #### [id number] #### [facility] [address], [place] [address]Moedlwwxob [Mass/Vol]0.7 mg/dLNormal0.5-1.3FCleveland Clinic [facility] Lodi HospitalComment on above:Performed By: #### [id number] #### [facility] [address], [place] [address]Rkbkatj [Mass/Vol]119 mg/lINbnpye80-065EnzlxoUniversity Hospitals Beachwood Medical CenterComment on above:Performed By: #### [id number] #### [facility] [address], [place] [address]Awcurqbyg [Moles/Vol]3.7 mmol/LNormal3.5-5.3FCleveland Clinic [facility] Lodi HospitalComment on above:Performed By: #### [id number] #### [facility] [address], [place] [address]Kxghkf [Moles/Vol]137 mmol/RNufrqo154-392RxrghoUniversity Hospitals Beachwood Medical CenterComment on above:Performed By: #### [id number] #### [facility] [address], [place] [address]Uahh nitrogen [Mass/Vol]18 mg/dLNormal5-21[facility] Beachwood Medical CenterComment on above:Performed By: #### [id number] #### [facility] [address], [place] [address]Cvhj nitrogen/Creatinine [Mass ratio]26 No JcokhXkxb21-38DnevfqUniversity Hospitals Beachwood Medical CenterComment on above:Performed By: #### [id number] #### [facility] [address] [place] [address] 99465OTD w/ Auto Diffon 54-25-5557Nqumiwhcj/100 WBC (Bld)0.2 %Normal 0.0-2.0[facility] Beachwood Medical CenterComment on above:Performed By: #### [id number] #### [facility] [address] [place] [address] 54526Xjxqecfpl/Leukocytes Auto (Bld) [Pure # fraction]0.0 E9/LNormal 0.0-0.2FC[facility] Clinic [facility] Lodi HospitalComment on above:Performed By: #### [id number] #### [facility] [address] [place] [address] 37028Bjnyjtjzrpy (Bld) [#/Vol]0.0 E9/LNormal0.0-0.5FCleveland Clinic [facility] Lodi HospitalComment on above:Performed By: #### [id number] #### [facility] [address] [place] [address] 62105Posbfgmohqh/100 WBC (Bld)0.1 %Normal0.0-8.0[facility] Beachwood Medical CenterComment on above:Performed By: #### [id number] #### [facility] [address] [place] [address] 11519Rsdhhjbnzft distribution width (RBC) [Ratio]14.3 %High10.9-14.2 [facility] Beachwood Medical CenterComment on above:Performed By: #### [id number] #### [facility] [address] [place] [address] 80536Gfuqsqxvoh (Bld) [Volume fraction]40.1 %Tizbua19.0-46.0[facility] Beachwood Medical CenterComment on above:Performed By: #### [id number] #### [facility] [address] [place] [address] 15302Nglqgrqhfb (Bld) [Mass/Vol]13.3 g/vICiqret88.0-16.0[facility] Medical CenterComment on above:Performed By: #### [id number] #### [facility] [address] [place] [address] 91985Uwqwkzmweji (Bld) [#/Vol]1.5 E9/LNormal1.0-4.0[facility] Medical CenterComment on above:Performed By: #### [id number] #### [facility] [address] [place] [address] 65230Zncxjldndsu/100 WBC (Bld)8.4 %Low14.0-50.0[facility] Beach[facility] Medical CenterComment on above:Performed By: #### [id number] #### [facility] [address] [place] [address] 64323ASY (RBC) [Entitic mass]29.1 ihVeadbc32.0-34.0[facility] Beach[facility] Medical CenterComment on above:Performed By: #### [id number] #### [facility] [address] [place] [address] 47640NMYC (RBC) [Mass/Vol]33.2 g/sNHshxgu39.4-36.0[facility] Medical CenterComment on above:Performed By: #### [id number] #### [facility] [address] [place] [address] 57529DBW (RBC) [Entitic vol]87.5 yGAyszxd65.0-100.0[facility] Beach[facility] Medical CenterComment on above:Performed By: #### [id number] #### [facility] [address] [place] [address] 70002Fyjlwnwet (Bld) [#/Vol]0.6 E9/LNormal0.2-1.0[facility] Beach[facility] Medical CenterComment on above:Performed By: #### [id number] #### [facility] [address] [place] [address] 44418Qczldidmgka (Bld) [#/Vol]15.4 E9/LHigh2.0-7.5FC[facility] Clinic [facility]odi HospitalComment on above:Performed By: #### [id number] #### [facility] [address] [place] [address] 32236Sxxfvapafrp/100 WBC (Bld)87.7 %High36.0-75.0[facility] Beach[facility] Medical CenterComment on above:Performed By: #### [id number] #### [facility] [address], [place] [address]Xyojocxy367.0 E9/OOasrjr366.0-500.0[facility] Comment on above:Performed By: #### [id number] #### [facility] [address], [place] [address]Sevnksan mean volume (Bld) [Entitic vol]7.6 fLNormal6.4-10.8 [facility] Beachwood Medical CenterComment on above:Performed By: #### [id number] #### [facility] [address] [place] [address] 12494MSG (Bld) [#/Vol]4.6 E12/LNormal4.3-5.9[facility] Beach[facility] Medical CenterComment on above:Performed By: #### [id number] #### [facility] [address] [place] [address] 80079JSY corrected for nucl RBC Auto (Bld) [#/Vol]17.5 E9/LHigh 4.0-11.0[facility] Medical CenterComment on above:Performed By: #### [id number] #### [facility] [address] [place] [address] 93343MPJDUIKSBEvjrukf By: SYSTEM SYSTEM on 59-65-0811Lrqepkai HS2.40 pg/mLLow10.10 - 27.10 pg/mLRemisol ChemComment on [...] ratio]1.4 {ratio}Normal1.1 - 2.2Remisol ChemALP [Catalytic activity/Vol]40 [iU]/uRrctka00 - 98 Int._Unit/LRemisol ChemALT No additional P-5'-P [Catalytic activity/Vol]14 [iU]/dNormal6 - 46 Int._Unit/L Remisol ChemAmylase [Catalytic activity/Vol]84 U/RIdbmcn07 - 157 unit/LRemisol ChemAST [Catalytic activity/Vol]13 [iU]/dNormal5 [...] Use, Jade Saleem, October 2017)ED Clinical Summaryon 30-28-9125ND Clinical SummaryED Clinical Summary [place] [id number] ED Clinical Summary Person Information Name: INDU [place] Age: 28 Years : 1995 Sex: Female Language: Polish PCP: Carolyne Collazo MD Marital Status: Phone: [phone] Visit Id: Visit Reason: Abdominal pain - ; Epigastric Pain; Nausea and vomiting; 6 WEEKS , VOMITING Speciality: Acuity: 3 Enc Type: Observation Med Service: Medical Arrival: 06/19/2024 10:47:59 Discharge: LOS: 000 10:47 Checkin: 06/19/2024 10:47:59 Checkout: 06/19/2024 21:34:58 Dispo Type: Admitted as IP to this [facility] EVENTS: Event Name Event Status Request Date/Time [...] 06/19/2024 21:16:35 06/19/2024 21:16:35 06/19/2024 21:16:35 ADDRESS: [address] [facility] [address] PHYS DOC NOTES: MEDICAL INFORMATION: Prescriptions Given: [...] 3:First trimester ; 4:On deep vein thrombosis (DVT)prophylaxisNoMosaic Life [facility] St[facility] Medical CenterED Note-Nursing on 55-76-3705MD Note-NursingED Note-Nursing Assumed care of patient. Patient awaiting admission acceptance. Resting in bed at this time. Report called to Zaria WHITE on 3 north.[facility] CenterED Note-NursingED Note-Nursing This RN spoke with Ko pharmacist regarding 2nd morphine dose and 3rd dose of Phenergan. oKstated that morphine was safe in to repeat, stated that Phenergan admiration needed to wait until 1800 to give 3rd dose. Ko to retime order.[facility] Medical CenterED Patient Education Noteon 25-26-3385TH Patient Education NoteED Patient Education NoteNoCleveland Clinic Fairview Hospital CenterED Patient Summaryon 39-94-1072LJ Patient SummaryED Patient Summary [place] [id number] Patient Discharge Instructions Person Information Name: INDU ST Age: 28 Years Arrival Date: 06/19/2024 10:47:59 Discharge Diagnosis: 1:Esophagitis; 2:Intractable vomiting; 3:First trimester ; 4:On deep vein thrombosis (DVT) prophylaxis Primary Care Physician: Carolyne Collazo MD Provider Information Primary Provider: Johny Laura MD [employer] Former:None The exam and treatment you received in the Emergency Department were for an urgent problem and are not intended as complete care. It is important that you follow up with a doctor, nurse practitioner,or physician???s physician assistant for ongoing care. If your symptoms [...] opioids can be used to help relieve vdhrhvyl-hx-kqoupw pain and are often prescribed following a [...] be struggling with addiction, tell your health critical care rn and askfor guidance or call [facility]???S National Helpline at 4-633-231-WWDB. (more content not included)...[facility] Memorial HospitalExtra Blueon 35-05-9403Oaea Collected PlasmaYesInvalid Interpretation [facility] CenterComment on above:Performed By: #### [id number] #### [facility] [address] [place] [address] 86606EJSPGVSOXRFpvbtug By: SYSTEM SYSTEM on 05-86-1007Jxiyxvmop/100 WBC (Bld)0.2 %Normal0.0 - 2.0 %Remisol HemeBasophils/Leukocytes [...] %High36.0 - 75.0 %Remisol HemeHep Func Panelon 07-07-8002Artdhbj [Mass/Vol]3.8 g/dLNormal3.3-5.0[facility] CenterComment on above:Performed By: #### [id number] #### [facility] [address] [place] [address] 91940Enyearz/Globulin (S) [Mass conc ratio]1.7Sfvtxs3.1-2.2FC[facility] Clinic [facility]odi HospitalComment on above:Performed By: #### [id number] #### [facility] [address], [place] [address]UPG [Catalytic activity/Vol]40 Int._Unit/WNmhosg72-01YbsnznUniversity Hospitals Beachwood Medical CenterComment on above:Performed By: #### [id number] #### [facility] [address], [place] [address]RZX No additional P-5'-P [Catalytic activity/Vol]14 Int._Unit/L Normal6-46[facility] Medical CenterComment on above:Performed By: #### [id number] #### [facility] [address], [place] [address]KWS [Catalytic activity/Vol]13 Int._Unit/LNormal5-43[facility] Medical CenterComment on above:Performed By: #### [id number] #### [facility] [address], [place] [address]Tbbxbsszi [Mass/Vol]0.5 mg/dLNormal0.0-1.1FC[facility] HospitalComment on above:Performed By: #### [id number] #### [facility] [address] [place] [address] 080[address]Uoygkcwxw.direct [Mass/Vol]0.1 mg/dLNormal0.0-0.4FC[facility] HospitalComment on above:Performed By: #### [id number] #### [facility] [address] [place] [address] 555[address]Xunqxbvtp.indirect [Mass or moles/Vol]0.4 mg/dLNormal0.1-0.9 [facility] CenterComment on above:Performed By: #### [id number] #### [facility] [address] [place] [address] 623[address]Udlanjns (S) [Mass/Vol]2.7 g/dLNormal1.4-4.0[facility] CenterComment on above:Performed By: #### [id number] #### [facility] [address] [place] [address] 13513Xmmzzhu [Mass/Vol]6.5 g/dLNormal6.0-7.8[facility] Medical CenterComment on above:Performed By: #### [id number] #### [facility] [address] [place] [address] 945[address]Mggsgo Levelon 53-64-4557Srxtlj [Catalytic activity/Vol]84 U/L Fsrw74-88DfqolrUniversity Hospitals Beachwood Medical CenterComment on above:Performed By: #### [id number] #### [facility] [address] [place] [address] 70792Och-Cdqggqa Noteon 11-65-3873Jod-Arrival NotePre-Arrival Note Pre-Arrival Summary Name: , Current Date: 06/19/2024 10:48:27 EDT Gender: Date of : Age: 28 Pre-Arrival Type: EMS ETA: 06/19/2024 11:07:00 EDT Primary Care Physician: Presenting Problem: 6 wk preggers with vomiting Pre-Arrival User: Mechelle Babin RN Referring Source: Location: PA Completion Date/Time: 06/19/2024 10:37:00 [facility] Emergency Department Pre-Hospital Report Form Vital Signs: Pre-Hospital Report: Treatment in Route: Response to Treatment: Misc. Issues:NormalUniversity Hospitals Beachwood Medical CenterTroponin 0 Hr.on 06-19-2024 Troponin HS<2.10Bzk02.10-27.10[facility] Medical CenterComment on above:Result Comment: The 95% CI (Confidence Interval) PPV (Positive Predictive Value) for myocardial infarction in females is 38 pg/mL, in males 51 pg/mL. The results should be used in conjunction with clinical conditions of myocardial infarction. (Access High Sensitivity Troponin I Instructions For Use, [employer] October 2017)Performed By: #### [id number] #### [facility] [address], [place] [address]Cdlfjgcc 3 Hr.on 03-88-1001Dmpktqio HS2.40 pg/mLLow10.10-27.10 [facility] Medical CenterComment on above:Result Comment: The 95% CI (Confidence Interval) PPV (Positive Predictive Value) for myocardial infarction in females is 38 pg/mL, in males 51 pg/mL. The results should be used in conjunction with clinical conditions of myocardial infarction. (Access High Sensitivity Troponin I Instructions For Use, [employer] October 2017)Performed By: #### [id number] #### [facility] [address], [place] [address]FI with Cult [employer]fl[employer] 55-12-0322Nftzzsyjh Ql (U)NegativeNormal NegativeUniversity Hospitals Beachwood Medical CenterComment on above:Performed By: #### [id number] #### [facility] [address], [place] [address]Omffreh (U)ClearNormalClearUniversity Hospitals Beachwood Medical CenterComment on above:Performed By: #### [id number] #### [facility] [address], [place] [address]Cdjia (U)YellowNormalYellowUniversity Hospitals Beachwood Medical CenterComment on above:Result Comment: Microscopic readings are only performed on those samples that meet specific criteria set forth by [facility].Performed By: #### [id number] #### [facility] [address], [place] [address]Mrmefky Ql (U)NegativeNormalNegativeUniversity Hospitals Beachwood Medical Center Comment on above:Performed By: #### [id number] #### [facility] [address], [place] [address]Wbrgwlxaoh Auto test strip (U) [Mass/Vol]NegativeNormalNegative [facility] Medical CenterComment on above:Performed By: #### [id number] #### [facility] [address], [place] [address]Igmvobv Auto test strip Ql (U)2+ mg/dLAbnormalNegSt. Anthony's HospitalComment on above:Performed By: #### [id number] #### [facility] [address], [place] [address]Xdixxalfk esterase Auto test strip Ql (U)NegativeNormalNegative [facility] Medical CenterComment on above:Performed By: #### [id number] #### [facility] [address], [place] [address]Vfjpuwd Auto test strip Ql (U)NegativeNormalNegativeUniversity Hospitals Beachwood Medical CenterComment on above:Performed By: #### [id number] #### [facility] [address], [place] [address]kG (U)6.0 [pH]Invalid Interpretation Code5.0-9.0[facility] Medical CenterComment on above:Performed By: #### [id number] #### [facility] [address], [place] [address]Bzpttxo Ql (U)TraceAbnormalNegativeUniversity Hospitals Beachwood Medical Center Comment on above:Performed By: #### [id number] #### [facility] [address] [place] [address]Mxrbwcpk gravity (U) [Rel density]1.025Invalid Interpretation Code1.005-1.030[facility] Medical CenterComment on above:Performed By: #### [id number] #### [facility] [address] [place] [address] 611[address]Rtcehnnrrgzu (U) [Mass/Vol]NegativeNormalNegativeUniversity Hospitals Beachwood Medical CenterComment on above:Performed By: #### [id number] #### [facility] [address] [place] [address]26[address]Ycvz of Urine collection methodClean CatchShelby Memorial HospitalComment on above:Performed By: #### [id number] #### [facility] [address] [place] [address] 47944BWKVVSKDNWBbxtxyw By: SYSTEM SYSTEM on 07-74-6241Nbtzptxad Ql (U)NegativeNormalNegativemg/dLFT UA Auto SSClarity (U)Clear (06/19/24 12:40 PM)NormalClearFTMC UA Auto SSColor (U)Yellow 1 (06/19/24 12:40 PM)NormalYellowFT UA Auto SSComment on above:Interpretive Data: Microscopic readings are only performed on those samples that meet specific criteria set forth by [facility].Glucose Ql (U) NegativeNormalNegativemg/dLFT UA Auto SSHemoglobin Auto test strip (U) [Mass/Vol]NegativeNormalNegativemg/dLFTMC UA Auto SSKetones Auto test strip Ql (U)2+ mg/dLInvalid Interpretation CodeNegativemg/dLFT UA Auto SSLeukocyte esterase Auto test strip Ql (U)NegativeNormalNegativeLeu/uLFT UA Auto SS Nitrite Auto test strip Ql (U)NegativeNormalNegativemg/dLFT UA Auto SSpH (U) 6.0 *NA* (06/19/24 12:40 PM)Invalid Interpretation Code5.0 - 9.0[facility] UA Auto SSProtein Ql (U)Trace mg/dLInvalid Interpretation CodeNegativemg/dLVALIR REHABILITATION [facility] [place] UA Auto SSSpecific gravity (U) [Rel density]1.025 *NA* (06/19/24 12:40 PM)Invalid Interpretation Code1.005 - 1.030[facility] UA Auto SS Urobilinogen (U) [Mass/Vol]NegativeNormalNegativemg/dLVALIR REHABILITATION HOSPITAL [facility] [place] UA Auto SSURINALYSIS Ordered By: Johny Laura on 45-27-0362NU Spec DescClean Catch (06/19/24 12:40 PM)NormalVALIR REHABILITATION HOSPITAL [facility] [place] UA Auto SS us Gallbladderon 24-52-8857AU GallbladderExam Date/Time: 06/19/2024 14:23 EDT Reason for [...] Jade Payton DO Transcribed by: JURGEN Technologist: [facility] PrebleXR Chest Single Viewon 73-83-2050YC Chest Single ViewExam Date/Time: 06/19/2024 14:28 EDT [...] Jade Payton DO Transcribed by: JURGEN Technologist: KristanUniversity Hospitals Beachwood Medical CentereGFRon 15-29-0744mYQZ711 mL/min/1.73 h6Hdaxve>=59[facility] CenterComment on above:Performed By: #### [id number] #### [facility] [address], [place] [address]Yzuhsjvgskr 19-99-5827X0 [Mass/Vol]172.0 pg/mLInvalid Interpretation [facility] CenterComment on above:Result Comment: Adult Female Range Follicular phase 12.5 - 166.0 Ovulation phase 85.8 - 498.0 Luteal phase 43.8 - 211.0 Postmenopausal <6.0 - 54.7 1st trimester 215.0 - >4300.0 Carolin ECLIA methodology Performed at: [facility] [address] [id number] PhD Randa OchoaPerformed By: #### [id number] #### [facility] [address], [place] [address]GdLH Quanton 72-27-0276PMU.beta subunit Yd06576 m[IU]/mLHigh1-3 [facility] CenterComment on above:Result Comment: 'F NON < 1 - 3' ' 0.2 - 1 WEEK = 5 TO 50' ' 1 - 2 WEEKS = 50 - 500' ' 2 - 3 WEEKS = 100 - 5000' ' 3 - 4 WEEKS = 500 - 92392' ' 4 - 5 WEEKS = 1000 - 98266' ' 5 - 6 WEEKS = 25120 - 753081' ' 6 - 8 WEEKS = 75781 - 814844' ' 8 - 12 WEEKS = 19105 - 884984'Performed By: #### [id number] #### [facility] [address], [place] [address]ZLHXIEOAUAmvkevk By: SYSTEM SYSTEM on 35-81-1164XJJ.beta subunit Vp01829 m[IU]/mLHigh1 - 3 mIU/mLRemisol ChemComment on above:Result Comment: 'F NON < 1 - 3' ' 0.2 - 1 WEEK = 5 TO 50' ' 1 - 2 WEEKS = 50 - 500' ' 2 - 3 WEEKS = 100 - 5000' ' 3 - 4 WEEKS = 500 - 57502' ' 4 - 5 WEEKS = 1000 - 40500' ' 5 - 6 WEEKS = 96749 - 108168' ' 6 - 8 WEEKS = 85506 - 003160' ' 8 - 12 WEEKS = 49673 - 852796'Progesterone Lvl38.45 ng/mLInvalid Interpretation CodeRemisol ChemComment on above:Result Comment: 'F NON FOLLICULAR = 0.10 - 0.60' 'LUTEAL = 3.00 - 17.5' 'MIDLUTEAL = 3.30 - 18.6' 'POST-MENOPAUSE = 0.10 - 0.40' '-FIRST TRIMESTER = 8.30 - 66.5' 'SECOND TRIMESTER = 18.9 - 66.1' 'THIRD TRIMESTER = 35.8 - 312.4' 'MALES = 0.14 - 2.06'Progesteroneon 49-26-0150Msdxcwshbdzq Lvl38.45 ng/mLInvalid Interpretation [facility] CenterComment on above:Result Comment: 'F NON FOLLICULAR = 0.10 - 0.60' 'LUTEAL = 3.00 - 17.5' 'MIDLUTEAL = 3.30 - 18.6' 'POST-MENOPAUSE = 0.10 - 0.40' '-FIRST TRIMESTER = 8.30 - 66.5' 'SECOND TRIMESTER = 18.9 - 66.1' 'THIRD TRIMESTER = 35.8 - 312.4' 'MALES = 0.14 - 2.06'Performed By: #### [id number] #### [facility] [address], [place] [address]CK Transvaginalon 91-97-3847JL Transvaginal Exam Date/Time: 06/16/2024 14:31 EDT Reason [...] Arun Bhatia MD Transcribed by: JURGEN Technologist: ChrisUniversity Hospitals Beachwood Medical CenterEstradiolon 31-90-5645V1 [Mass/Vol]1761.0 pg/mLInvalid Interpretation [facility] CenterComment on above:Result Comment: Adult Female Range Follicular phase 12.5 - 166.0 Ovulation phase 85.8 - 498.0 Luteal phase 43.8 - 211.0 Postmenopausal <6.0 - 54.7 1st trimester 215.0 - >4300.0 Carolin ECLIA methodology Performed at: [facility] [address] [id number] PhD Randa OchoaPerformed By: #### [id number] #### [facility] [address] [place] [address]StKW Quanton 49-45-1883KVB.beta subunit Nb6415 m[IU]/mLHigh1-3 [facility] CenterComment on above:Result Comment: 'F NON < 1 - 3' ' 0.2 - 1 WEEK = 5 TO 50' ' 1 - 2 WEEKS = 50 - 500' ' 2 - 3 WEEKS = 100 - 5000' ' 3 - 4 WEEKS = 500 - 03066' ' 4 - 5 WEEKS = 1000 - 82383' ' 5 - 6 WEEKS = 20113 - 254088' ' 6 - 8 WEEKS = 97196 - 016856' ' 8 - 12 WEEKS = 71959 - 432671'Performed By: #### [id number] #### [facility] [address], [place] [address]OMUMKUTBCVqmercg By: SYSTEM SYSTEM on 22-16-2121GGX.beta subunit Ot7106 m[IU]/mLHigh1 - 3 mIU/mLRemisol ChemComment on above:Result Comment: 'F NON < 1 - 3' ' 0.2 - 1 WEEK = 5 TO 50' ' 1 - 2 WEEKS = 50 - 500' ' 2 - 3 WEEKS = 100 - 5000' ' 3 - 4 WEEKS = 500 - 20369' ' 4 - 5 WEEKS = 1000 - 23437' ' 5 - 6 WEEKS = 85050 - 767952' ' 6 - 8 WEEKS = 72358 - 734657' ' 8 - 12 WEEKS = 27561 - 883472'Progesterone Lvl62.84 ng/mLInvalid Interpretation CodeRemisol ChemComment on above:Result Comment: 'F NON FOLLICULAR = 0.10 - 0.60' 'LUTEAL = 3.00 - 17.5' 'MIDLUTEAL = 3.30 - 18.6' 'POST-MENOPAUSE = 0.10 - 0.40' '-FIRST TRIMESTER = 8.30 - 66.5' 'SECOND TRIMESTER = 18.9 - 66.1' 'THIRD TRIMESTER = 35.8 - 312.4' 'MALES = 0.14 - 2.06' Result Verified by DilutionProgesteroneon 31-87-2165Eljzistecofg Lvl62.84 ng/mL Invalid Interpretation CodeAlpesher R Adams Cowley Shock Trauma CenterComment on above:Result Comment: 'F NON FOLLICULAR = 0.10 - 0.60' 'LUTEAL = 3.00 - 17.5' 'MIDLUTEAL = 3.30 - 18.6' 'POST-MENOPAUSE = 0.10 - 0.40' '-FIRST TRIMESTER = 8.30 - 66.5' 'SECOND TRIMESTER = 18.9 - 66.1' 'THIRD TRIMESTER = 35.8 - 312.4' 'MALES = 0.14 - 2.06' Result Verified by DilutionPerformed By: #### [id number] #### [facility] [address], [place] [address]QY Transvaginalon 87-45-4984FL Transvaginal Exam Date/Time: 06/13/2024 07:26 EDT Reason [...] Willi Barros MD Transcribed by: JURGEN Technologist: RamónUniversity Hospitals Beachwood Medical CenterEstradiolon 19-64-3339S5 [Mass/Vol]112.0 pg/mLInvalid Interpretation [facility] CenterComment on above:Result Comment: Adult Female Range Follicular phase 12.5 - 166.0 Ovulation phase 85.8 - 498.0 Luteal phase 43.8 - 211.0 Postmenopausal <6.0 - 54.7 1st trimester 215.0 - >4300.0 Carolin ECLIA methodology Performed at: [facility] [id number] PhD Randa OchoaPerformed By: #### [id number] #### [facility] [address], [place] [address]RzHY Quanton 87-20-4640SUL.beta subunit Qn677 m[IU]/mLHigh1-3 [facility] CenterComment on above:Result Comment: 'F NON < 1 - 3' ' 0.2 - 1 WEEK = 5 TO 50' ' 1 - 2 WEEKS = 50 - 500' ' 2 - 3 WEEKS = 100 - 5000' ' 3 - 4 WEEKS = 500 - 88854' ' 4 - 5 WEEKS = 1000 - 97235' ' 5 - 6 WEEKS = 42768 - 136419' ' 6 - 8 WEEKS = 08595 - 294470' ' 8 - 12 WEEKS = 04894 - 493217'Performed By: #### [id number] #### [facility] [address], [place] [address]JXVRXXRXWWczszyg By: SYSTEM SYSTEM on 52-49-0261KBV.beta subunit Qn677 m[IU]/mLHigh1 - 3 mIU/mLRemisol ChemComment on above:Result Comment: 'F NON < 1 - 3' ' 0.2 - 1 WEEK = 5 TO 50' ' 1 - 2 WEEKS = 50 - 500' ' 2 - 3 WEEKS = 100 - 5000' ' 3 - 4 WEEKS = 500 - 15430' ' 4 - 5 WEEKS = 1000 - 37677' ' 5 - 6 WEEKS = 45974 - 899907' ' 6 - 8 WEEKS = 07936 - 073077' ' 8 - 12 WEEKS = 34435 - 435673'Progesterone Lvl43.84 ng/mLInvalid Interpretation CodeRemisol ChemComment on above:Result Comment: 'F NON FOLLICULAR = 0.10 - 0.60' 'LUTEAL = 3.00 - 17.5' 'MIDLUTEAL = 3.30 - 18.6' 'POST-MENOPAUSE = 0.10 - 0.40' '-FIRST TRIMESTER = 8.30 - 66.5' 'SECOND TRIMESTER = 18.9 - 66.1' 'THIRD TRIMESTER = 35.8 - 312.4' 'MALES = 0.14 - 2.06' Result Verified by [facility] CampusTS Qn1.56 m[IU]/LNormal0.34 - 5.60 mcIU/mLRemisol ChemProgesteroneon 91-35-8391Aomxizfjzwrl Lvl43.84 ng/mLInvalid Interpretation CodeUniversity Hospitals Beachwood Medical CenterComment on above:Result Comment: 'F NON FOLLICULAR = 0.10 - 0.60' 'LUTEAL = 3.00 - 17.5' 'MIDLUTEAL = 3.30 - 18.6' 'POST-MENOPAUSE = 0.10 - 0.40' '-FIRST TRIMESTER = 8.30 - 66.5' 'SECOND TRIMESTER = 18.9 - 66.1' 'THIRD TRIMESTER = 35.8 - 312.4' 'MALES = 0.14 - 2.06' Result Verified by DilutionPerformed By: #### [id number] #### [facility] [address], [place] [address]Dodpmccrs Laboratory TestingOrdered By: Generated DomainUser on 07-31-6676E0 [Mass/Vol]112.0 pg/mLInvalid Interpretation [facility] SendOutsSS Comment on above:Result Comment: Adult Female Range Follicular phase 12.5 - 166.0 Ovulation phase 85.8 - 498.0 Luteal phase 43.8 - 211.0 Postmenopausal <6.0 - 54.7 1st trimester 215.0 - >4300.0 Carolin ECLIA methodology Performed at: [facility] [id number] PhD Randa Nichole [id number] Qn1.56 m[IU]/LNormal 0.34-5.60[facility] Medical CenterComment on above:Performed By: #### [id number] #### [facility] [address], [place] [address]KjIS Quanton 70-96-2043DTE.beta subunit Qn264 m[IU]/mLHigh1-3 [facility] CenterComment on above:Result Comment: 'F NON < 1 - 3' ' 0.2 - 1 WEEK = 5 TO 50' ' 1 - 2 WEEKS = 50 - 500' ' 2 - 3 WEEKS = 100 - 5000' ' 3 - 4 WEEKS = 500 - 43368' ' 4 - 5 WEEKS = 1000 - 06040' ' 5 - 6 WEEKS = 22305 - 814734' ' 6 - 8 WEEKS = 68278 - 391126' ' 8 - 12 WEEKS = 30731 - 576625'Performed By: #### [id number] #### [facility] [address], [place] [address]AGIVTEFXZCffgdqr By: SYSTEM SYSTEM on 78-18-2474WVA.beta subunit Qn264 m[IU]/mLHigh1 - 3 mIU/mLRemisol ChemComment on above:Result Comment: 'F NON < 1 - 3' ' 0.2 - 1 WEEK = 5 TO 50' ' 1 - 2 WEEKS = 50 - 500' ' 2 - 3 WEEKS = 100 - 5000' ' 3 - 4 WEEKS = 500 - 32734' ' 4 - 5 WEEKS = 1000 - 48952' ' 5 - 6 WEEKS = 53438 - 594653' ' 6 - 8 WEEKS = 78829 - 482648' ' 8 - 12 WEEKS = 93038 - 440202'Progesterone Lvl58.23 ng/mLInvalid Interpretation CodeRemisol ChemComment on above:Result Comment: 'F NON FOLLICULAR = 0.10 - 0.60' 'LUTEAL = 3.00 - 17.5' 'MIDLUTEAL = 3.30 - 18.6' 'POST-MENOPAUSE = 0.10 - 0.40' '-FIRST TRIMESTER = 8.30 - 66.5' 'SECOND TRIMESTER = 18.9 - 66.1' 'THIRD TRIMESTER = 35.8 - 312.4' 'MALES = 0.14 - 2.06' Result Verified by DilutionProgesteroneon 35-89-9125Qkzkpcakrgut Lvl58.23 ng/mL Invalid Interpretation CodeFishMedStar Good Samaritan HospitalComment on above:Result Comment: 'F NON FOLLICULAR = 0.10 - 0.60' 'LUTEAL = 3.00 - 17.5' 'MIDLUTEAL = 3.30 - 18.6' 'POST-MENOPAUSE = 0.10 - 0.40' '-FIRST TRIMESTER = 8.30 - 66.5' 'SECOND TRIMESTER = 18.9 - 66.1' 'THIRD TRIMESTER = 35.8 - 312.4' 'MALES = 0.14 - 2.06' Result Verified by DilutionPerformed By: #### [id number] #### [facility] [address], [place] [address]Gfvrkeghhpx 82-60-3118S4 [Mass/Vol]282.0 pg/mLInvalid Interpretation [facility] CenterComment on above:Result Comment: Adult Female Range Follicular phase 12.5 - 166.0 Ovulation phase 85.8 - 498.0 Luteal phase 43.8 - 211.0 Postmenopausal <6.0 - 54.7 1st trimester 215.0 - >4300.0 Carolin ECLIA methodology Performed at: Lab[address] [id number] PhD Randa OchoaPerformed By: #### [id number] #### [facility] [address], [place] [address]POIXMHUKEPimraoo By: SYSTEM SYSTEM on 20-12-6201Lagcpmguqlmg Lvl44.85 ng/mLInvalid Interpretation CodeRemisol ChemComment on above:Result Comment: 'F NON FOLLICULAR = 0.10 - 0.60' 'LUTEAL = 3.00 - 17.5' 'MIDLUTEAL = 3.30 - 18.6' 'POST-MENOPAUSE = 0.10 - 0.40' '-FIRST TRIMESTER = 8.30 - 66.5' 'SECOND TRIMESTER = 18.9 - 66.1' 'THIRD TRIMESTER = 35.8 - 312.4' 'MALES = 0.14 - 2.06' Result Verified by Repeat Analysis Result Verified by DilutionProgesteroneon 16-15-8963Tmthcjdkaxhh Lvl44.85 ng/mL Invalid Interpretation [facility] CenterComment on above:Result Comment: 'F NON FOLLICULAR = 0.10 - 0.60' 'LUTEAL = 3.00 - 17.5' 'MIDLUTEAL = 3.30 - 18.6' 'POST-MENOPAUSE = 0.10 - 0.40' '-FIRST TRIMESTER = 8.30 - 66.5' 'SECOND TRIMESTER = 18.9 - 66.1' 'THIRD TRIMESTER = 35.8 - 312.4' 'MALES = 0.14 - 2.06' Result Verified by Repeat Analysis Result Verified by DilutionPerformed By: #### [id number] #### [facility] [address], [place] [address]Hasdrnuqy Laboratory TestingOrdered By: Generated DomainUser on 16-64-8256R7 [Mass/Vol]282.0 pg/mLInvalid Interpretation [facility]SS Comment on above:Result Comment: Adult Female Range Follicular phase 12.5 - 166.0 Ovulation phase 85.8 - 498.0 Luteal phase 43.8 - 211.0 Postmenopausal <6.0 - 54.7 1st trimester 215.0 - >4300.0 Carolin ECLIA methodology Performed at: [address] [id number] PhD Randa Mccain 22-30-3087V7 [Mass/Vol]143.0 pg/mL Invalid Interpretation [facility] CenterComment on above:Result Comment: Adult Female Range Follicular phase 12.5 - 166.0 Ovulation phase 85.8 - 498.0 Luteal phase 43.8 - 211.0 Postmenopausal <6.0 - 54.7 1st trimester 215.0 - >4300.0 Carolin ECLIA methodology Performed at: [address] [id number] PhD Randa OchoaPerformed By: #### [id number] #### [facility] [address], [place] [address]FFec 58-14-0707Eacclanc Qn9.6 m[IU]/mLInvalid Interpretation [facility] CenterComment on above:Result Comment: Adult Female Range Follicular phase 2.4 - 12.6 Ovulation phase 14.0 - 95.6 Luteal phase 1.0 - 11.4 Postmenopausal 7.7 - 58.5 Performed at: [address] [id number] PhD Randa OchoaPerformed By: #### [id number] #### [facility] [address], [place] [address]KZCGYBSRTUpitkkl By: SYSTEM SYSTEM on 93-77-9826Gwtoxjconpyg Lvl0.42 ng/mLInvalid Interpretation CodeRemisol ChemComment on above:Result Comment: 'F NON FOLLICULAR = 0.10 - 0.60' 'LUTEAL = 3.00 - 17.5' 'MIDLUTEAL = 3.30 - 18.6' 'POST-MENOPAUSE = 0.10 - 0.40' '-FIRST TRIMESTER = 8.30 - 66.5' 'SECOND TRIMESTER = 18.9 - 66.1' 'THIRD TRIMESTER = 35.8 - 312.4' 'MALES = 0.14 - 2.06'Progesteroneon 60-05-0605Pflekhkvnfqa Lvl0.42 ng/mLInvalid Interpretation [facility] CenterComment on above:Result Comment: 'F NON FOLLICULAR = 0.10 - 0.60' 'LUTEAL = 3.00 - 17.5' 'MIDLUTEAL = 3.30 - 18.6' 'POST-MENOPAUSE = 0.10 - 0.40' '-FIRST TRIMESTER = 8.30 - 66.5' 'SECOND TRIMESTER = 18.9 - 66.1' 'THIRD TRIMESTER = 35.8 - 312.4' 'MALES = 0.14 - 2.06'Performed By: #### [id number] #### [facility] [address], [place] [address]Kqeieputs Laboratory TestingOrdered By: Generated DomainUser on 20-71-9994R2 [Mass/Vol]143.0 pg/mLInvalid Interpretation [facility]Out[facility]SS Comment on above:Result Comment: Adult Female Range Follicular phase 12.5 - 166.0 Ovulation phase 85.8 - 498.0 Luteal phase 43.8 - 211.0 Postmenopausal <6.0 - 54.7 1st trimester 215.0 - >4300.0 Carolin ECLIA methodology Performed at: Lab[address] [id number] PhD Randa Phillipsropin Qn9.6 m[IU]/mLInvalid Interpretation [facility] SendOutsSSComment on above:Result Comment: Adult Female Range Follicular phase 2.4 - 12.6 Ovulation phase 14.0 - 95.6 Luteal phase 1.0 - 11.4 Postmenopausal 7.7 - 58.5 Performed at: Lab[address] [id number] PhD Randa Trivedi Transvaginal Non-OBon 43-21-3448DQ Transvaginal Non-OBExam Date/Time: 05/20/2024 07:58 EDT Reason [...] Arun Bhatia MD Transcribed by: JURGEN Technologist: ChrisUniversity Hospitals Beachwood Medical CenterEstradiolon 22-06-3023F5 [Mass/Vol]84.1 pg/mLInvalid Interpretation [facility] CenterComment on above:Result Comment: Adult Female Range Follicular phase 12.5 - 166.0 Ovulation phase 85.8 - 498.0 Luteal phase 43.8 - 211.0 Postmenopausal <6.0 - 54.7 1st trimester 215.0 - >4300.0 Carolin ECLIA methodology Performed at: [address] [id number] PhD Randa Ramírezformed By: #### [id number] #### [facility] [address], [place] [address]OLN and LHon 29-52-3286Sklmssryegs Qn11.2 m[IU]/mLInvalid Interpretation [facility] CenterComment on above:Result Comment: Adult Female Range Follicular phase 3.5 - 12.5 Ovulation phase 4.7 - 21.5 Luteal phase 1.7 - 7.7 Postmenopausal 25.8 - 134.8 Performed at: [address] [id number] PhD Randa Ramírezformed By: #### [id number] #### [facility] [address], [place] [address]Gweprndl Qn9.2 m[IU]/mLInvalid Interpretation [facility] CenterComment on above:Result Comment: Adult Female Range Follicular phase 2.4 - 12.6 Ovulation phase 14.0 - 95.6 Luteal phase 1.0 - 11.4 Postmenopausal 7.7 - 58.5Performed By: #### [id number] #### [facility] [address], [place] [address]UjEH Quanton 59-99-0035PAA.beta subunit Qn1 m[IU]/mLNormal1-3 [facility] CenterComment on above:Result Comment: 'F NON < 1 - 3' ' 0.2 - 1 WEEK = 5 TO 50' ' 1 - 2 WEEKS = 50 - 500' ' 2 - 3 WEEKS = 100 - 5000' ' 3 - 4 WEEKS = 500 - 96088' ' 4 - 5 WEEKS = 1000 - 10692' ' 5 - 6 WEEKS = 14135 - 744335' ' 6 - 8 WEEKS = 60936 - 207414' ' 8 - 12 WEEKS = 23163 - 686189'Performed By: #### [id number] #### [facility] [address] [place] [address]ARCBIPWFIBlpyrkh By: SYSTEM SYSTEM on 12-38-6778QVQ.beta subunit Qn1 m[IU]/mLNormal1 - 3 mIU/mLRemisol ChemComment on above:Result Comment: 'F NON < 1 - 3' ' 0.2 - 1 WEEK = 5 TO 50' ' 1 - 2 WEEKS = 50 - 500' ' 2 - 3 WEEKS = 100 - 5000' ' 3 - 4 WEEKS = 500 - 83584' ' 4 - 5 WEEKS = 1000 - 56165' ' 5 - 6 WEEKS = 94106 - 530771' ' 6 - 8 WEEKS = 83277 - 843547' ' 8 - 12 WEEKS = 63974 - 144399'Progesterone Lvl0.85 ng/mLInvalid Interpretation CodeRemisol ChemComment on above:Result Comment: 'F NON FOLLICULAR = 0.10 - 0.60' 'LUTEAL = 3.00 - 17.5' 'MIDLUTEAL = 3.30 - 18.6' 'POST-MENOPAUSE = 0.10 - 0.40' '-FIRST TRIMESTER = 8.30 - 66.5' 'SECOND TRIMESTER = 18.9 - 66.1' 'THIRD TRIMESTER = 35.8 - 312.4' 'MALES = 0.14 - 2.06'TSH Qn1.77 m[IU]/LNormal0.34 - 5.60 mcIU/mLRemisol Chem Progesteroneon 19-94-0542Lvmeutktbugf Lvl0.85 ng/mLInvalid Interpretation Code [facility] CenterComment on above:Result Comment: 'F NON FOLLICULAR = 0.10 - 0.60' 'LUTEAL = 3.00 - 17.5' 'MIDLUTEAL = 3.30 - 18.6' 'POST-MENOPAUSE = 0.10 - 0.40' '-FIRST TRIMESTER = 8.30 - 66.5' 'SECOND TRIMESTER = 18.9 - 66.1' 'THIRD TRIMESTER = 35.8 - 312.4' 'MALES = 0.14 - 2.06'Performed By: #### [id number] #### [facility] [address], [place] [address]JCDgr 93-33-8486RIN Qn1.77 m[IU]/LNormal0.34-5.60[facility] Partnerser [facility] Trauma CenterComment on above:Performed By: #### [id number] #### [facility] [address], [place] [address]DE Transvaginal Non-OBon 20-34-5467VC Transvaginal Non-OBExam Date/Time: 05/13/2024 09:09 EDT Reason [...] Bhatia MD Transcribed by: JURGEN Technologist: [facility] HospitalG Quanton 83-61-8449QBT.beta subunit Qn1 m[IU]/mLNormal1-3[facility] Comment on above:Result Comment: 'F NON < 1 - 3' ' 0.2 - 1 WEEK = 5 TO 50' ' 1 - 2 WEEKS = 50 - 500' ' 2 - 3 WEEKS = 100 - 5000' ' 3 - 4 WEEKS = 500 - 55360' ' 4 - 5 WEEKS = 1000 - 96788' ' 5 - 6 WEEKS = 81583 - 252930' ' 6 - 8 WEEKS = 88559 - 724436' ' 8 - 12 WEEKS = 94744 - 266377'Performed By: #### [id number] #### [facility] [address] [place] [address] 098[address]RYFUWXQVHJgfccto By: SYSTEM SYSTEM on 86-15-5591YRH.beta subunit Qn1 m[IU]/mLNormal1 - 3 mIU/mLRemisol ChemComment on above:Result Comment: 'F NON < 1 - 3' ' 0.2 - 1 WEEK = 5 TO 50' ' 1 - 2 WEEKS = 50 - 500' ' 2 - 3 WEEKS = 100 - 5000' ' 3 - 4 WEEKS = 500 - 36122' ' 4 - 5 WEEKS = 1000 - 41220' ' 5 - 6 WEEKS = 55257 - 061285' ' 6 - 8 WEEKS = 82658 - 528375' ' 8 - 12 WEEKS = 74303 - 813324'Progesterone Lvl65.01 ng/mLInvalid Interpretation CodeRemisol ChemComment on above:Result Comment: 'F NON FOLLICULAR = 0.10 - 0.60' 'LUTEAL = 3.00 - 17.5' 'MIDLUTEAL = 3.30 - 18.6' 'POST-MENOPAUSE = 0.10 - 0.40' '-FIRST TRIMESTER = 8.30 - 66.5' 'SECOND TRIMESTER = 18.9 - 66.1' 'THIRD TRIMESTER = 35.8 - 312.4' 'MALES = 0.14 - 2.06' Result Verified by DilutionProgesteroneon 31-31-7142Caonpamxpzys Lvl65.01 ng/mL Invalid Interpretation [facility] CenterComment on above:Result Comment: 'F NON FOLLICULAR = 0.10 - 0.60' 'LUTEAL = 3.00 - 17.5' 'MIDLUTEAL = 3.30 - 18.6' 'POST-MENOPAUSE = 0.10 - 0.40' '-FIRST TRIMESTER = 8.30 - 66.5' 'SECOND TRIMESTER = 18.9 - 66.1' 'THIRD TRIMESTER = 35.8 - 312.4' 'MALES = 0.14 - 2.06' Result Verified by DilutionPerformed By: #### [id number] #### [facility] [address], [place] [address]Yoajgfxhqac 87-19-5643I0 [Mass/Vol]84.6 pg/mLInvalid Interpretation [facility] CenterComment on above:Result Comment: Adult Female Range Follicular phase 12.5 - 166.0 Ovulation phase 85.8 - 498.0 Luteal phase 43.8 - 211.0 Postmenopausal <6.0 - 54.7 1st trimester 215.0 - >4300.0 Carolin ECLIA methodology Performed at: [facility] [id number] PhD Randa OchoaPerformed By: #### [id number] #### [facility] [address], [place] [address]FWFTWEZYLYyudusl By: SYSTEM SYSTEM on 55-07-9054Ovyzznhkdmqk Lvl62.71 ng/mLInvalid Interpretation CodeRemisol ChemComment on above:Result Comment: 'F NON FOLLICULAR = 0.10 - 0.60' 'LUTEAL = 3.00 - 17.5' 'MIDLUTEAL = 3.30 - 18.6' 'POST-MENOPAUSE = 0.10 - 0.40' '-FIRST TRIMESTER = 8.30 - 66.5' 'SECOND TRIMESTER = 18.9 - 66.1' 'THIRD TRIMESTER = 35.8 - 312.4' 'MALES = 0.14 - 2.06' Result Verified by DilutionProgesteroneon 12-06-2946Msqjnjoiymwj Lvl62.71 ng/mL Invalid Interpretation CodeFisher R [facility] Shock Trauma CenterComment on above:Result Comment: 'F NON FOLLICULAR = 0.10 - 0.60' 'LUTEAL = 3.00 - 17.5' 'MIDLUTEAL = 3.30 - 18.6' 'POST-MENOPAUSE = 0.10 - 0.40' '-FIRST TRIMESTER = 8.30 - 66.5' 'SECOND TRIMESTER = 18.9 - 66.1' 'THIRD TRIMESTER = 35.8 - 312.4' 'MALES = 0.14 - 2.06' Result Verified by DilutionPerformed By: #### [id number] #### [facility] [address], [place] [address]XP PELVIS TRANSVAGINALon 51-80-4361[place], [place] [address] Ultrasound Report Signed Patient: INDU ST MR#: [id number] : 1995 Acct:[id number] Age/Sex: 28 / F ADM Date: 04/18/24 Loc: US Attending Dr: Jade Ledbetter M.D. Ordering Physician: Jade Ledbetetr M.D. Date of Service: 04/18/24 Procedure(s): US pelvis transvaginal Accession Number(s): [id number] cc: CAROLYNE COLLAZO Robert J M.D. [address] [address] Patient Name: INDU ST MRN: [id number] date: 1995 Sex: F Assigned Patient Location: US Current Patient Location: US Accession/Order Number: [id number] Exam Date: 04/18/2024 07:00 Report Date: 04/18/2024 [...] Signed By: 04/18/24 0741 DD/ 0738 TD/TT: Trailer Technician:TBHRadiology, Radiologist, MD - 04/18/2024 [place] [address] Ultrasound Report Signed Patient: INDU ST MR#: [id number] : 1995 Acct:[id number] Age/Sex: 28 / F ADM Date: 04/18/24 Loc: US Attending Dr: Jade Ledbetter M.D. Ordering Physician: Jade Ledbetter M.D. Date of Service: 04/18/24 Procedure(s): US pelvis transvaginal Accession Number(s): [id number] cc: CAROLYNE COLLAZO ; Jade Ledbetter M.D. [place] [id number] Patient Name: INDU ST MRN: [id number] date: 1995 Sex: F Assigned Patient Location: US Current Patient Location: US Accession/Order Number: [id number] Exam Date: 04/18/2024 07:00 Report Date: 04/18/2024 [...] M.D. Signed By: 04/18/24 0741 DD/ TD/TT: Trailer Technician: [facility] INFIRMARYHiren HealthcareRadiology Study observation (narrative)NOM HealthcareUS PELVIS TRANSVAGINALOrdered By: Radiologist Radiology on 25-58-7897FHFB [employer] Work Phone: US PELVIS TRANSVAGINALon 65-11-6817Zqb [place] [address] Ultrasound Report Signed Patient: INDU ST MR#: [id number] : 1995 Acct:[id number] Age/Sex: 28 / F ADM Date: 04/16/24 Loc: US Attending Dr: Jade Ledbetter M.D. Ordering Physician: Jade Ledbetter M.D. Date of Service: 04/16/24 Procedure(s): US pelvis transvaginal Accession Number(s): [id number] cc: CAROLYNE COLLAZO Robert J M.D. The [address] [address] Patient Name: INDU ST MRN: [id number] date: 1995 Sex: F Assigned Patient Location: US Current Patient Location: US Accession/Order Number: [id number] Exam Date: 04/16/2024 07:03 Report Date: 04/16/2024 [...] Signed By: 04/16/24 1133 DD/ 1131 TD/TT: Trailer Technician:TBHRadiology, Radiologist, - 04/16/2024 The [place] [id number] Ultrasound Report Signed Patient: INDU ST MR#: [id number] : 1995 Acct:[id number] Age/Sex: 28 / F ADM Date: 04/16/24 Loc: US Attending Dr: Jade Ledbetter M.D. Ordering Physician: Jade Ledbetter M.D. Date of Service: 04/16/24 Procedure(s): US pelvis transvaginal Accession Number(s): [id number] cc: CAROLYNE COLLAZO ; Jade Ledbetter M.D. The [place] [address] Patient Name: INDU ST MRN: [id number] date: 1995 Sex: F Assigned Patient Location: US Current Patient Location: US Accession/Order Number: [id number] Exam Date: 04/16/2024 07:03 Report Date: 04/16/2024 [...] Signed By: 04/16/24 1133 DD/ 1131 TD/TT: Trailer Technician: DEION HealthcareRadiology Study observation (narrative)DEION HealthcareUS PELVIS TRANSVAGINALOrdered By: Radiologist Radiology on 75-04-9113DAYP Healthcare Work Phone: US PELVIS TRANSVAGINALon [id number] [address] Ultrasound Report Signed Patient: INDU ST MR#: [id number] : 1995 Acct:[id number] Age/Sex: 28 / F ADM Date: 04/14/24 Loc: US Attending Dr: Jade Ledbetter M.D. Ordering Physician: Jade Ledbetter M.D. Date of Service: 04/14/24 Procedure(s): US pelvis transvaginal Accession Number(s): [id number] cc: CAROLYNE COLLAZO ; Jade Ledbetter M.D. The [address] [address] Patient Name: INDU ST MRN: [id number] date: 1995 Sex: F Assigned Patient Location: US Current Patient Location: US Accession/Order Number: [id number] Exam Date: 04/14/2024 07:00 Report Date: 04/14/2024 [...] Signed By: 04/14/24 0745 DD/ 0742 TD/TT: Trailer Technician:TBHRadiology, Radiologist, - 04/14/[address] [address] Ultrasound Report Signed Patient: INDU ST MR#: [id number] : 1995 Acct:[id number] Age/Sex: 28 / F ADM Date: 04/14/24 Loc: US Attending Dr: Jade Ledbetter M.D. Ordering Physician: Jade Ledbetter M.D. Date of Service: 04/14/24 Procedure(s): US pelvis transvaginal Accession Number(s): [id number] cc: CAROLYNE COLLAZO ; Jade Ledbetter M.D. The [place] [id number] Patient Name: INDU ST MRN: [id number] date: 1995 Sex: F Assigned Patient Location: US Current Patient Location: US Accession/Order Number: [id number] Exam Date: 04/14/2024 07:00 Report Date: 04/14/2024 [...] Mckeon M.D. Signed By: 04/14/2445 DD/ TD/TT: Trailer Technician: DEION HealthcareRadiology Study observation (narrative)NOMS HealthcareUS PELVIS TRANSVAGINALOrdered By: Radiologist Radiology on 43-11-1990NBRJ [employer] Work Phone: US PELVIS TRANSVAGINALon [phone], [place] [address] Ultrasound Report Signed Patient: INDU ST MR#: [id number] : 1995 Acct:[id number] Age/Sex: 28 / F ADM Date: 04/08/24 Loc: US Attending Dr: Jade Ledbetter M.D. Ordering Physician: Jade Ledbetter M.D. Date of Service: 04/08/24 Procedure(s): US pelvis transvaginal Accession Number(s): [id number] cc: CAROLYNE COLLAZO ; Jade Ledbetter M.D. The [place] [id number] Patient Name: INDU ST MRN: [id number] date: 1995 Sex: F Assigned Patient Location: US Current Patient Location: US Accession/Order Number: [id number] Exam Date: 04/08/2024 13:45 Report Date: 04/08/2024 [...] Signed By: 04/08/24 1442 DD/ 1439 TD/TT: Trailer Technician:TBHRadiology, Radiologist, - 04/08/2024 [place] [address] Ultrasound Report Signed Patient: INDU ST MR#: [id number] : 1995 Acct:[id number] Age/Sex: 28 / F ADM Date: 04/08/24 Loc: US Attending Dr: Jade Ledbetter M.D. Ordering Physician: Jade Ledbetter M.D. Date of Service: 04/08/24 Procedure(s): US pelvis transvaginal Accession Number(s): [id number] cc: CAROLYNE COLLAZO ; Jade Ledbetter M.D. The [place] [address] Patient Name: INDU ST MRN: [id number] date: 1995 Sex: F Assigned Patient Location: [place] Current Patient Location: [place] Accession/Order Number: [id number] Exam Date: 04/08/2024 13:45 Report Date: 04/08/2024 [...] Signed By: 04/08/24 1442 DD/ 1439 TD/TT: Trailer Technician: [facility] HealthcareRadiology Study observation (narrative)[facility] HealthcareUS PELVIS TRANSVAGINALOrdered By: Radiologist Radiology on [id number] Work Phone: basic Metabolic Panelon [id number] [Mass/Vol]0.8 mg/dL0.5 - 1.1 mg/dLMansfield Hospital SystemGlucose [Mass/Vol]87 mg/dLMansfield Hospital SystemPotassium [Moles/Vol]4.1 mmol/L3.4 - 5.3 mmol/L [facility] SystemSodium [Moles/Vol]142 mmol/L137 - 147 mmol/LProMedAdena Regional Medical Center SystemUrea nitrogen [Mass/Vol]13 mg/dL4 - 21 mg/dLMansfield Hospital System HBV surface Ag IA Qlon 45-14-0504Uytxtggqn B Surface AntigenNegativeMansfield Hospital SystemHIV 1+2 Ab+HIV1 p24 Ag IA Qlon 77-20-2302FDP 1&2 AB/AGNon-Reactive [facility] SystemLaboratory - Hematology and Cell countson 69-56-3930GkT5c (Bld) [Mass fraction]5.3 %4.0 - 6.0 %[facility] HealthcareComment on above:ADA RECOMMENDED LIMIT 4.0 - 6.0 ADA THERAPEUTIC TARGET < 7.0 ACTION SUGGESTED > 7.0 Liver panelon 95-71-1882RWO [Catalytic activity/Vol]51 U/L25 - 125 U/LProMedica Health SystemALT No additional P-5'-P [Catalytic activity/Vol]47 U/LAbnormal7 - 35 U/LProMedica Health SystemAST [Catalytic activity/Vol]21 U/L13 - 35 U/L [facility] SystemInterpretation and review of laboratory resultsAbnormal [facility] SystemMLR HEMOGLOBIN A1Con 99-05-7645Dhhbqwl [Mass/Vol]105 mg/dLNOAL HealthcareCLINISYNCNo Panel Informationon 83-81-2000PYNO Healthcare Rubella immune IgG13.5ProMedAdena Regional Medical Center SystemT. pallidum IgG+IgM IA Ql (S)on 03-14-2024T. pallidum IgG Ql (S)Non-ReactiveProMorrow County Hospital SystemType and screenon 68-38-1193Ugd/Rh(D)PositiveProMorrow County Hospital SystemANA Individual Abson 35-84-4390Tpjj-Centro B AbSee Refr ReportNOAL HealthcareComment on above: Performed By: #### [id number] #### [facility] Laboratory [address] [place] [address]22[address]WTAH JESUS INDIVIDUAL ABSon 43-64-4826Hukrhdui Ordering Provider: MD Carolyne HutchisonBluffton Hospital WRITTEN AUTHORIZATIONon 57-65-1966GLOU WRITTEN AUTHORIZATIONCommentKANE COUNTY HUMAN RESOURCE SSD HealthcareComment on above: Written Authorization Received. Authorization received from ORIGINAL ORDER 02-20-2024 Logged by Valentina Peters Performed at: [address] [id number] PhD Randa Ochoa Original Ordering Provider: MD Carolyne PonceMercy hospital springfieldWRITTEN AUTHORIZATIONon 99-58-9934Vwfcvdn AuthorizationCommentInvalid Interpretation CodeUniversity Hospitals Beachwood Medical CenterComment on above:Result Comment: Written Authorization Received. Authorization received from ORIGINAL ORDER 02-20-2024 Logged by Valentina Peters Performed at: [address] [id number] PhD Randa OchoaPerformed By: #### [id number] #### [facility] Laboratory [address], [place] [address]WMRI RF QUANTon 73-30-7316RFOT RHEUMATOID FACTOR:ACNC:PT:SER/PLAS:QN:13.2NINFNOMS HealthcareComment on above:Performed at: [address] [id number] PhD Randa Ochoa Original Ordering Provider: MD Carolyne HutchisonP[facility] Quanton 13-73-5445Yajumeafti factor Qn13.2 International_Unit/mLInvalid Interpretation Code<14.0University Hospitals Beachwood Medical CenterComment on above:Result Comment: Performed at: [address] [id number] PhD Randa OchoaPerformed By: #### [id number] #### [facility] Laboratory [address], [place] [address]FTU w/ Auto Diffon 90-86-4176Ktfpsquyy/100 WBC (Bld)0.3 %Normal 0.0-2.0NOMS HealthcareComment on above:Performed By: #### [id number] #### [facility] [address], [place] [address]Wrzafvvlcbl distribution width (RBC) [Ratio]14.3 %High10.9-14.2 NOMS HealthcareComment on above:Performed By: #### [id number] #### [facility] [address], [place] [address]Pjlsexptem (Bld) [Volume fraction]40.4 %Xolnnf69.0-46.0NOMS HealthcareComment on above:Performed By: #### [id number] #### [facility] [address], [place] [address]Yjjtwshmnbj/100 WBC (Bld)16.1 %Ibimfg75.0-50.0NOMS Healthcare Comment on above:Performed By: #### [id number] #### [facility] [address], [place] [address]Xurmoxnzylj/100 WBC (Bld)75.3 %High36.0-75.0N[facility]S Healthcare Comment on above:Performed By: #### [id number] #### [facility] [address] [place] [address] 55605Cuydbyqu mean volume (Bld) [Entitic vol]8.5 fLNormal6.4-10.8 NOMS HealthcareComment on above:Performed By: #### [id number] #### [facility] [address] [place] [address] 05895Emukntyzn/Leukocytes Auto (Bld) [Pure # fraction]0.0 E9/LNormal 0.0-0.2FCleveland Clinic [facility] Lodi HospitalComment on above:Performed By: #### [id number] #### [facility] [address] [place] [address] 24448Syayomliqdq (Bld) [#/Vol]0.0 E9/LNormal0.0-0.5FCleveland Clinic [facility] General Lodi HospitalComment on above:Performed By: #### [id number] #### [facility] [address] [place] [address] 32760Fooiekfmdzn/100 WBC (Bld)0.4 %Normal0.0-8.0[facility] Beachwood Medical CenterComment on above:Performed By: #### [id number] #### [facility] [address] [place] [address] 27443Mziqwzaeac (Bld) [Mass/Vol]14.2 g/eGZtrqct00.0-16.0[facility] Beachwood Medical CenterComment on above:Performed By: #### [id number] #### [facility] [address] [place] [address] 14384Bdkeoclkimg (Bld) [#/Vol]1.1 E9/LNormal1.0-4.0[facility] Beachwood Medical CenterComment on above:Performed By: #### [id number] #### [facility] [address] [place] [address] 60625ZGU (RBC) [Entitic mass]30.4 gfXwpwwh62.0-34.0[facility] Beach[facility] Medical CenterComment on above:Performed By: #### [id number] #### [facility] [address] [place] [address] 23218GXBR (RBC) [Mass/Vol]35.1 g/aIGntbuy76.4-36.0[facility] Beach[facility] Medical CenterComment on above:Performed By: #### [id number] #### [facility] [address] [place] [address] 19885PSH (RBC) [Entitic vol]86.7 gGMzymjy16.0-100.0[facility] Beach[facility] Medical CenterComment on above:Performed By: #### [id number] #### [facility] Laboratory [address] [place] [address] 74720Rccdflxjg (Bld) [#/Vol]0.5 E9/LNormal0.2-1.0[facility] Beachwood Medical CenterComment on above:Performed By: #### [id number] #### [facility] Laboratory [address] [place] [address] 22874Nueqzudsofm (Bld) [#/Vol]5.1 E9/LNormal2.0-7.5FCleveland Clinic [facility] Lodi HospitalComment on above:Performed By: #### [id number] #### [facility] Laboratory [address] [place] [address] 76026Hhailzsj801.0 E9/KNmvbwt802.0-500.0[facility] Comment on above:Performed By: #### [id number] #### [facility] [address] [place] [address] 97302PLI (Bld) [#/Vol]4.7 E12/LNormal4.3-5.9[facility] Beachwood Medical CenterComment on above:Performed By: #### [id number] #### [facility] Laboratory [address] [place] [address] 64792ORZ corrected for nucl RBC Auto (Bld) [#/Vol]6.8 E9/LNormal 4.0-11.0[facility] Beachwood Medical CenterComment on above:Performed By: #### [id number] #### [facility] Laboratory [address] [place], [place] [address]AAOBBUMZTKzeneut By: SYSTEM SYSTEM on 82-07-6235Oxrnhpm [Mass/Vol]4.5 g/dLNormal3.3 - 5.0 gm/dLRemisol ChemAlbumin/Globulin [Mass ratio] 1.6 {ratio}Normal1.1 - 2.2Remisol ChemALP [Catalytic activity/Vol]55 [iU]/d Rifppl05 - 98 Int._Unit/LRemisol ChemALT No additional P-5'-P [Catalytic activity/Vol]13 [iU]/dNormal6 - 46 Int._Unit/LRemisol ChemAnion gap [Moles/Vol] 14 mmol/LNormal6 - 16 mEq/LRemisol ChemAST [Catalytic activity/Vol]13 [iU]/d Normal5 - 43 Int._Unit/LRemisol ChemBilirubin [Mass/Vol]0.5 mg/dLNormal0.0 - 1.1 mg/dLRemisol ChemCalcium [Mass/Vol]9.3 mg/dLNormal8.9 - 11.1 mg/dLRemisol Chem Chloride [Moles/Vol]103 mmol/TSuefzk797 - 111 mmol/LRemisol ChemCO2 [Moles/Vol] 26 mmol/FDydlap10 - 31 mmol/LRemisol ChemCreatinine [Mass/Vol]0.7 mg/dLNormal0.5 - 1.3 mg/dLRemisol QmimwGSR659 mL/min/1.73 c7Pwduix>=59mL/min/1.73 s4Ceepubd ChemGlobulin (S) [Mass/Vol]2.9 g/dLNormal1.4 - 4.0 gm/dLRemisol ChemGlucose [Mass/Vol]86 mg/iBMvgygq04 - 199 mg/dLRemisol ChemPotassium [Moles/Vol]4.0 mmol/LNormal3.5 - 5.3 mmol/LRemisol ChemProtein [Mass/Vol]7.4 g/dLNormal6.0 - 7.8 gm/dLRemisol ChemSodium [Moles/Vol]139 mmol/GVyueea093 - 145 mmol/LRemisol ChemUrea nitrogen [Mass/Vol]13 mg/dLNormal5 - 21 mg/dLRemisol ChemUrea nitrogen/Creatinine [Mass ratio]19 mg/ouTdkfdf46 - 20Remisol ChemCMPon 12-48-9897Jeevjab [Mass/Vol]4.5 g/dLNormal3.3-5.0[facility] Comment on above:Performed By: #### [id number] #### [facility] Laboratory [address], [place] [address]Hshuvuv/Globulin (S) [Mass conc ratio]1.5Myotpe4.1-2.2FC[facility] Clinic [facility] Lodi HospitalComment on above:Performed By: #### [id number] #### [facility] Laboratory [address], [place] [address]ABI [Catalytic activity/Vol]55 Int._Unit/YXeouht86-55ZgivajUniversity Hospitals Beachwood Medical CenterComment on above:Performed By: #### [id number] #### [facility] [address], [place] [address]EOM No additional P-5'-P [Catalytic activity/Vol]13 Int._Unit/L Normal6-46[facility] Beachwood Medical CenterComment on above:Performed By: #### [id number] #### [facility] [address] [place] [address] 21808Idiqj gap [Moles/Vol]14 mmol/LNormal6-16[facility] Beachwood Medical CenterComment on above:Performed By: #### [id number] #### [facility] Laboratory [address], [place] [address]IGH [Catalytic activity/Vol]13 Int._Unit/LNormal5-43[facility] Beach[facility] Medical CenterComment on above:Performed By: #### [id number] #### [facility] [address], [place] [address]Qnswfuubt [Mass/Vol]0.5 mg/dLNormal0.0-1.1FC[facility] Clinic [facility]odi HospitalComment on above:Performed By: #### [id number] #### [facility] [address], [place] [address]Ybhtsyu [Mass/Vol]9.3 mg/dLNormal8.9-11.1FCleveland Clinic [facility] Lodi HospitalComment on above:Performed By: #### [id number] #### [facility] [address], [place] [address]Cofaxzyz [Moles/Vol]103 mmol/VPysskr783-551ThrivzUniversity Hospitals Beachwood Medical CenterComment on above:Performed By: #### [id number] #### [facility] [address], [place] [address]CS1 [Moles/Vol]26 mmol/WOrsguz28-38UuilmtUniversity Hospitals Beachwood Medical Center Comment on above:Performed By: #### [id number] #### [facility] [address], [place] [address]Sjlyrdxyik [Mass/Vol]0.7 mg/dLNormal0.5-1.3FCleveland Clinic Ak[facility] Lodi HospitalComment on above:Performed By: #### [id number] #### [facility] [address], [place] [address]Clwdgxjn (S) [Mass/Vol]2.9 g/dLNormal1.4-4.0[facility] Medical CenterComment on above:Performed By: #### [id number] #### [facility] [address], [place] [address]Fsvxjhu [Mass/Vol]86 mg/wRHlfhvl05-766OygikxUniversity Hospitals Beachwood Medical CenterComment on above:Performed By: #### [id number] #### [facility] [address], [place] [address]Ycfkwcork [Moles/Vol]4.0 mmol/LNormal3.5-5.3FCleveland Clinic Ak[facility] General Lodi HospitalComment on above:Performed By: #### [id number] #### [facility] [address], [place] [address]Zakvdkj [Mass/Vol]7.4 g/dLNormal6.0-7.8[facility] Medical CenterComment on above:Performed By: #### [id number] #### [facility] [address], [place] [address]Beocuw [Moles/Vol]139 mmol/CXyqjiy794-573UrdjluUniversity Hospitals Beachwood Medical CenterComment on above:Performed By: #### [id number] #### [facility] [address], [place] [address]Xlcb nitrogen [Mass/Vol]13 mg/dLNormal5-21[facility] Medical CenterComment on above:Performed By: #### [id number] #### [facility] [address], [place] [address]Cloj nitrogen/Creatinine [Mass ratio]19 No BchkxOcahex94-39 [facility] Medical CenterComment on above:Performed By: #### [id number] #### [facility] [address] [place] [address] 13971OLLK CBC W/ AUTO DIFFon 73-58-6696IFUFHFTDVXZ/100 LEUKOCYTES:NFR:PT:BLD:QN:AUTOMATED COUNT0.4 %0.0 - 8.0 %[facility] EOSINOPHILS:NCNC:PT:BLD:QN:0[facility] BASOPHILS/LEUKOCYTES:NFR.DF:PT:BLD:QN:AUTOMATED NIKEI9ZPWNCooper County Memorial Hospital ERYTHROCYTE MEAN CORPUSCULAR HEMOGLOBIN CONCENTRATION:MCNC:PT:RBC:QN35.1N[facility]S [facility] ERYTHROCYTE MEAN CORPUSCULAR HEMOGLOBIN:ENTMASS:PT:RBC:QN30.4 pg 27.0 - 34.0 pgCooper County Memorial Hospital ERYTHROCYTE MEAN CORPUSCULAR VOLUME:ENTVOL:PT:RBC:QN:AUTOMATED COUNT86.7 fL80.0 - 100.0 fLCooper County Memorial Hospital ERYTHROCYTES:NCNC:PT:BLD:QN:AUTOMATED COUNT4.7NOParkland Health Center HEMOGLOBIN:MCNC:PT:BLD:QN:14.2NOMS [facility] LEUKOCYTES6.8NOMiddletown Hospital MONOCYTES:NCNC:PT:BLD:QN:AUTOMATED COUNT0.5[facility] NEUTROPHILS:NCNC:PT:BLD:QN:AUTOMATED COUNT5.1NOMS HealthcareInterpretation and review of laboratory resultsAbnormalNOMS HealthcareLYMPHOCYTES:NCNC:PT:BLD:QN: 1.1NOMS HealthcarePlatelets (Bld) [#/Vol]235 10*3/uLNOMS HealthcareOriginal Ordering Provider: MD Carolyne Barr HealthcareHEMATOLOGYOrdered By: SYSTEM SYSTEM on 40-09-7903Udftoiegs/100 WBC (Bld)0.3 %Normal0.0 - 2.0 % Remisol HemeBasophils/Leukocytes Auto (Bld) [Pure # fraction]0.0 E9/LNormal0.0 - 0.2 E9/LRemisol HemeEosinophils (Bld) [#/Vol]0.0 E9/LNormal0.0 - 0.5 E9/LRemisol HemeEosinophils/100 WBC (Bld)0.4 %Normal0.0 - 8.0 %Remisol HemeErythrocyte distribution width (RBC) [Ratio]14.3 %High10.9 - 14.2 %Remisol HemeHematocrit (Bld) [Volume fraction]40.4 %Edijey13.0 - 46.0 %Remisol HemeHemoglobin (Bld) [Mass/Vol]14.2 g/cWImebkt35.0 - 16.0 gm/dLRemisol HemeLymphocytes (Bld) [#/Vol] 1.1 E9/LNormal1.0 - 4.0 E9/LRemisol HemeLymphocytes/100 WBC (Bld)16.1 %Normal 14.0 - 50.0 %Remisol HemeMCH (RBC) [Entitic mass]30.4 xsYrdfxo69.0 - 34.0 pg Remisol HemeMCHC (RBC) [Mass/Vol]35.1 g/eISkcros79.4 - 36.0 gm/dLRemisol HemeMCV (RBC) [Entitic vol]86.7 lQRzszto11.0 - 100.0 fLRemisol HemeMonocytes (Bld) [#/Vol]0.5 E9/LNormal0.2 - 1.0 E9/LRemisol HemeMonocytes/100 WBC (Bld)7.9 % Normal4.0 - 14.0 %Remisol HemeNeutrophils (Bld) [#/Vol]5.1 E9/LNormal2.0 - 7.5 E9/LRemisol HemeNeutrophils/100 WBC (Bld)75.3 %High36.0 - 75.0 %Remisol Heme Vcvmfczv276.0 E9/DXvryfk275.0 - 500.0 E9/LRemisol HemePlatelet mean volume (Bld) [Entitic vol]8.5 fLNormal6.4 - 10.8 fLRemisol HemeRBC (Bld) [#/Vol]4.7 E12/L Normal4.3 - 5.9 E12/LRemisol HemeWBC corrected for nucl RBC Auto (Bld) [#/Vol] 6.8 E9/LNormal4.0 - 11.0 E9/LRemisol HemeHEMATOLOGYOrdered By: Mery Lopez on 96-17-7412YKL (Bld) [Velocity]14 mm/hNormal0 - 34 mm/hrVALIR REHABILITATION HOSPITAL – [place] HemeAutoSSIR catheterization and introduction for sonohysterographyon 95-43-5874[place]ziCh[place], [place] [address] Ultrasound Report Signed Patient: INDU ST MR#: [id number] : 1995 Acct:[id number] Age/Sex: 28 / F ADM Date: 02/18/24 Loc: US Attending Dr: Non-Staff Physician Alda Ordering Physician: PhysicianPalmira M.D. Date of Service: 02/18/24 Procedure(s): US Cath for Sonohysterography Accession Number(s): [id number] cc: CAROLYNE COLLAZO ; Physician,Non-Staff Alda [facility] [place] [id number] Patient Name: INDU ST MRN: [id number] date: 1995 Sex: F Assigned Patient Location: US Current Patient Location: [place] Accession/Order Number: [id number] Exam Date: 02/18/2024 14:40 Report Date: 02/18/2024 15:58 At the request of: NON-STAFF PHYSICIAN Procedure: US Cath for Sonohysterography EXAM: US sonohysterography, US Cath for Sonohysterography HISTORY: Procreative Management Testing COMPARISON: None. TECHNIQUE: Informed consent was obtained. Preprocedural ultrasound with measurements of follicles followed by insertion of a 5 Belizean hysterosalpingogram catheter and infusion of 30 cc [...] By: Romy Mckeon M.D. Signed By: 02/18/24 1600 DD/ 1558 TD/TT: Trailer Technician:TBHRadiology, Radiologist, - 02/19/2024 [place] [address] Ultrasound Report Signed Patient: INDU ST MR#: [id number] : 1995 Acct:[id number] Age/Sex: 28 / F ADM Date: 02/18/24 Loc: US Attending Dr: Non-Staff Physician Lizama Ordering Physician: Palmira Sarah M.D. Date of Service: 02/18/24 Procedure(s): US Cath for Sonohysterography Accession Number(s): [id number] cc: CAROLYNE COLLAZO ; Physician,Non-Staff Alda [address] [address] Patient Name: INDU ST MRN: [id number] date: 1995 Sex: F Assigned Patient Location: US Current Patient Location: US Accession/Order Number: [id number] Exam Date: 02/18/2024 14:40 Report Date: 02/18/2024 15:58 At the request of: NON-STAFF PHYSICIAN Procedure: US Cath for Sonohysterography EXAM: US sonohysterography, US Cath for Sonohysterography HISTORY: Procreative Management Testing COMPARISON: None. TECHNIQUE: Informed consent was obtained. Preprocedural ultrasound with measurements of follicles followed by insertion of a 5 Belizean hysterosalpingogram catheter and infusion of 30 cc [...] Mckeon M.D. Signed By: 02/18/24 1601 DD/ 1556 TD/TT: Trailer Technician: DEION Hartley Panel InformationOrdered By: Radiologist Radiology on 38-75-8871DVQS [employer] Work Phone: No Panel Informationon 74-46-3164Fzjrgbkpk Study observation (narrative)DEION WeirSONOHYSTEROGRAPHYon 90-06-2631CgeChlor[place], [place] [address] Ultrasound Report Signed Patient: INDU ST MR#: [id number] : 1995 Acct:[id number] Age/Sex: 28 / F ADM Date: 02/18/24 Loc: [place] Attending Dr: Non-Staff Physician Alda Ordering Physician: PhysicianNon-Staff Alda Date of Service: 02/18/24 Procedure(s): US sonohysterography Accession Number(s): [id number] cc: CAROLYNE COLLAZO ; Physician,Non-Staff Alda [address] [address] Patient Name: INDU ST MRN: [id number] date: 1995 Sex: F Assigned Patient Location: Current Patient Location: Accession/Order Number: [id number] Exam Date: 02/18/2024 14:40 Report Date: 02/18/2024 15:58 At the request of: NON-STAFF PHYSICIAN Procedure: US sonohysterography EXAM: US sonohysterography, US Cath for Sonohysterography HISTORY: Procreative Management Testing COMPARISON: None. TECHNIQUE: Informed consent was obtained. Preprocedural ultrasound with measurements of follicles followed by insertion of a 5 Belizean hysterosalpingogram catheter and infusion of 30 cc [...] Signed By: 02/18/24 1607 DD/ 1558 TD/TT: Trailer Technician:TBHRadiology, Radiologist, - 02/19/2024 [place] [address] Ultrasound Report Signed Patient: INDU ST MR#: [id number] : 1995 Acct:[id number] Age/Sex: 28 / F ADM Date: 02/18/24 Loc: US Attending Dr: Non-Staff Physician Alda Ordering Physician: Palmira Sarah M.D. Date of Service: 02/18/24 Procedure(s): US sonohysterography Accession Number(s): [id number] cc: CAROLYNE COLLAZO ; Palmira Sarah M.D. The [address] [address] Patient Name: INDU ST MRN: [id number] date: 1995 Sex: F Assigned Patient Location: US Current Patient Location: US Accession/Order Number: [id number] Exam Date: 02/18/2024 14:40 Report Date: 02/18/2024 15:58 At the request of: NON-STAFF PHYSICIAN Procedure: US sonohysterography EXAM: US sonohysterography, US Cath for Sonohysterography HISTORY: Procreative Management Testing COMPARISON: None. TECHNIQUE: Informed consent was obtained. Preprocedural ultrasound with measurements of follicles followed by insertion of a 5 Belizean hysterosalpingogram catheter and infusion of 30 cc [...] Signed By: 02/18/24 1601 DD/ 1558 TD/TT: Trailer Technician: DEION Vargas Automatedon 83-76-2563ZVC (Bld) [Velocity]14 mm/hNormal 0-34Fisher [facility] Shock Trauma CenterComment on above:Performed By: #### [id number] #### [facility] Laboratory [address] [place] [address] 55712wIIFpe 72-23-8591zAHR786 mL/min/1.73 l9Sxhvnl>=59Fisher [facility] Cow[facility] Shock Trauma CenterComment on above:Performed By: #### [id number] #### [facility] Laboratory [address] [place], [place] [address]IBC THYROID STIM HORMONEon 39-86-7763TNS Qn1.748 m[IU]/LNOMS HealthcareNo Panel Informationon 68-20-2700JIHRNECMYFZNE HealthcareTBH PREG QUANT HCGon 30-21-3521OZV QUANTITATIVE<1mIU/mLNOMS HealthcareComment on above:5- 50 0.2-1 WEEK 50-500 1-2 WEEKS 100-5,000 2-3 WEEKS 500-10,000 3-4 WEEKS 1,000-50,000 4-5 WEEKS 10,000-100,000 5-6 WEEKS 15,000-200,000 6-8 WEEKS 10,000-100,000 2-3 MONTHS [place] HYSTEROSALPINGOGRAMon 71-85-7608MddChlor[place], [place] [address] Fluoroscopy Report Signed Patient: INDU ST MR#: [id number] : 1995 Acct:[id number] Age/Sex: 28 / F ADM Date: 12/24/23 Loc: [place] Attending Dr: Uriel Meade D.O. Ordering Physician: Uriel Meade D.O. Date of Service: 12/24/23 Procedure(s): [place] Hysterosal cath placement Accession Number(s): [id number] cc: CAROLYNE COLLAZO ; Uriel Meade D.O. The [address] [id number] Patient Name: INDU ST MRN: [id number] date: 1995 Sex: F Assigned Patient Location: [place] Current Patient Location: Accession/Order Number: [id number] Exam Date: 12/24/2023 14:38 Report Date: 12/24/2023 [...] Signed By: 12/24/23 1603 DD/ 1600 TD/TT: Trailer Technician:TERRYHRadiology, Radiologist, - 12/24/2023 [place] [address] Fluoroscopy Report Signed Patient: INDU ST MR#: [id number] : 1995 Acct:[id number] Age/Sex: 28 / F ADM Date: 12/24/23 Loc: [place] Attending Dr: Uriel Meade D.O. Ordering Physician: Uriel Meade D.O. Date of Service: 12/24/23 Procedure(s): FL Hysterosal cath placement Accession Number(s): [id number] cc: CAROLYNE COLLAZO ; Uriel Meade D.O. The [place] [address] Patient Name: INDU ST MRN: [id number] date: 1995 Sex: F Assigned Patient Location: [place] Current Patient Location: Accession/Order Number: [id number] Exam Date: 12/24/2023 14:38 Report Date: 12/24/2023 [...] Signed By: 12/24/23 1603 DD/ 1600 TD/TT: Trailer Technician: Tree[employer] HYSTEROSALPINGOGRAMOrdered By: Radiologist Radiology on 01-67-6666HFGG Healthcare Work Phone: [place] HYSTEROSALPINGOGRAPHYon [phone], [place] [address] Fluoroscopy Report Signed Patient: INDU ST MR#: [id number] : 1995 Acct:[id number] Age/Sex: 28 / F ADM Date: 12/24/23 Loc: [place] Attending Dr: Uriel Meade D.O. Ordering Physician: Uriel Meade D.O. Date of Service: 12/24/23 Procedure(s): FL hysterosalpingography Accession Number(s): [id number] cc: CAROLYNE COLLAZO ; Uriel Meade D.O. The [place] [address] Patient Name: INDU ST MRN: [id number] date: 1995 Sex: F Assigned Patient Location: [place] Current Patient Location: [place] Accession/Order Number: [id number] Exam Date: 12/24/2023 14:35 Report Date: 12/24/2023 [...] ROMY MCKEON Date: 12/24/2023 15:17 Dictated By: Roym Mckeon M.D. Signed By: 12/24/23 1519 DD/ 1517 TD/TT: Trailer Technician:TBHRadiology, Radiologist, MD - 12/24/2023 [place] [address] Fluoroscopy Report Signed Patient: INDU ST MR#: [id number] : 1995 Acct:[id number] Age/Sex: 28 / F ADM Date: 12/24/23 Loc: [place] Attending Dr: Uriel Meade D.O. Ordering Physician: Uriel Meade D.O. Date of Service: 12/24/23 Procedure(s): FL hysterosalpingography Accession Number(s): [id number] cc: CAROLYNE COLLAZO ; Uriel Meade D.O. The [place] [address] Patient Name: INDU ST MRN: [id number] date: 1995 Sex: F Assigned Patient Location: [place] Current Patient Location: [place] Accession/Order Number: [id number] Exam Date: 12/24/2023 14:35 Report Date: 12/24/2023 [...] Mckeon M.D. Signed By: 12/24/23 1519 DD/ 16 TD/TT: Trailer Technician: [facility] HYSTEROSALPINGOGRAPHYOrdered By: Radiologist Radiology on 75-52-6740DTCCHannibal Regional Hospital Work Phone: No Panel Informationon 38-69-9403Plrwzidty Study observation (narrative)[facility] HospitalTBH PREG QUANT HCGon 47-73-7213TDP QUANTITATIVE<1mIU/mLNOMS HealthcareComment on above:5-50 0.2-1 WEEK 50-500 1-2 WEEKS 100-5,000 2-3 WEEKS 500-10,000 3-4 WEEKS 1,000-50,000 4-5 WEEKS 10,000-100,000 5-6 WEEKS 15,000-200,000 6-8 WEEKS 10,000-100,000 2-3 MONTHS CLINPhelps HealthALL PROGESTERONEon 49-41-3813CFRKNCLRRCWA21.8 ng/mL.[facility] SSD HealthcareComment on above:Follicular phase 0.1 - 0.9 Luteal phase 1.8 - 23.9 Ovulation phase 0.1 - 12.0 First trimester 11.0 - 44.3 Second trimester 25.4 - 83.3 Third trimester 58.7 - 214.0 Postmenopausal 0.0 - 0.1 Performed at: [address] [id number] [employer]aster Model [employer] Mold Maker: Don Tolentino PhD, Phone: [phone] [facility] HospitalSurgical Pathology Reporton 72-70-5379Kfhzfcpu Pathology Report[address] [address]- Surgical Pathology Report Collected Date/Time: 10/15/2023 09:32 [...] is entirely submitted in one cassette. (DC) DC:[facility] Microscopic Description A-C: Microscopic examination performed unless gross only specified. The use of one or more reagents in the above tests is regulated as an analyte specific reagent (ASR). The test or tests are ordered following initial H&E microscopic examination. The performance characteristics were determined by the Laboratory of [facility]. They have not been cleared or approved by the US Food and Drug Administration. The FDA has determined that such clearance or approval is not necessary. These tests are used for clinical purposes. They should not be regarded as investigational or for research. Appropriate positive and negative controls are performed and are acceptable. [facility] HospitalComment on above:Performed By: #### [id number] #### [facility] [address] [place] [address] 99798Mqei OR Intraoperative Recordon 71-39-3693Bqzm OR Intraoperative RecordMain OR Intraoperative Record IntraOp Document Type FT Summary Primary Physician: Alex Knutson MD Finalized Date/Time: 10/16/23 12:11:53 Pt. Name: INDU ST./Sex: 1995 Female Med Rec #: [id number] Physician: Alex Knutson MD Financial #: [id number] Pt. Type: O Room/Bed: / Admit/Disch: 10/15/23 [...] RN, Promise Willis Role Performed Anesthesiologist of Sports Manager - Primary Scrub - Primary Record Time [...] DO, Kristen Amin RN, Miles, Kirstyn K, Alex Knutson MD Time Out Complete 10/15/23 09:19:00 Outcomes Met? [...] and tissue Entry 1 Skin Integrity Intact, [place], Warm, & Skin Abnormality No Dry Outcomes [...] for signs and symptom (more content not included)...NormalUniversity Hospitals Beachwood Medical CenterB hCG Qualon 23-07-9531Zvac HCG ( test) QlNegativeNormalUniversity Hospitals Beachwood Medical CenterComment on above:Performed By: #### [id number] #### [facility] [address], [place] [address]Edblgrghw Instructionson 39-65-8140Wwxhxnlpe Instructions Discharge Instructions INDU ST :1995 Visit [...] weeks Comments: Call for any problems. Where: [address] [place] [address], [address] [place] [phone] Business (1) Medications What How Much When [...] as instructed. MEDICATIONS Yo (more content not included)...[facility] HospitalComment on above:Result Comment: Electronically Signed By: Mery Crocker RN\.seble\Date and Time Signed: 10/15/23 09:50 CAROLTEKita 53-70-6372NggaishemrkiazeazcgbazjdufWNU Patient: INDU ST Age: 28 years Sex: [...] Daily, # 527 gm, Refills(s) 5, Pharmacy: [facility] #[id number], 167, cm, 09/13/23 14:57:00 EDT, Height/Length Dosing, 48.9, kg, 09/13/23 14:57:00 EDT, Weight Dosing Pantoprazole [address] Tab: 40 mg = 1 tab(s), Oral, Daily, # 30 tab(s), Refills(s) 4, Pharmacy: [facility] #[id number], 167, cm, 09/13/23 14:57:00 EDT, Height/Length Dosing, [...] Normal duodenum. Biopsies obtained Images Procedure images: Rec1_hd_video_2023_08_12T08_30_25_299.jpg Rec1_hd_video_2023_08_12T08_31_15_481.jpg Rec1_hd_video_4_08_12T08_31_35_887.jpg Rec1_hd_video_2023_08_12T08_31_56_149.jpg Rec1_hd_video_2023_08_12T08_32_29_708.jpg Rec1_hd_video_4_08_12T08_34_23_470.jpg . Post-Procedure Complications: none. Estimated blood loss: minimal. Specimens: sent to pathology. Devices/ implants: none left in place. Impression and Plan mild gastropathy Recommendations: -Resume previous diet -Resume home medications -Await pathology results, follow in GI clinic in 1-2 after dischargeShelby Memorial HospitalComment on above:Other Comment: Missing Attachment - attachment storage system not supported [id number] Can be viewed in source system Missing Attachment - attachment storage system not supported [id number] Can be viewed in source systemMissing Attachment - attachment storage system not supported [id number] Can be viewed in source systemMissing Attachment - attachment storage system not supported [id number] Can be viewed in source systemMissing Attachment - attachment storage system not supported [id number] Can be viewed in source systemMissing Attachment - attachment storage system not supported [id number] Can be viewed in source systemMain OR PACU I Recordon 77-07-4785Ikyq OR PACU I RecordMain OR PACU I Record PACU Phase I Document Type FT Summary Primary Physician: Alex Knutson MD Finalized Date/Time: 10/15/23 10:19:29 Pt. Name: ALMA ROSAINDU/Sex: 1995 Female Med Rec #: [id number] Physician: Alex Knutson MD Financial #: [id number] Pt. Type: O Room/Bed: / Admit/Disch: 10/15/23 [...] Signatures Signed By: Mery Crocker RN 10/15/23 10:19Shelby Memorial HospitalMain OR Preoperative Recordon 49-73-0078Epoc OR Preoperative RecordMain OR Preoperative Record Holding Area Document Type FT Summary Primary Physician: Alex Knutson MD Finalized Date/Time: 10/15/23 07:13:13 Pt. Name: ALMA ROSAJANUSZINDU Raudel/Sex: 1995 Female Med Rec #: [id number] Physician: Alex Knutson MD Financial #: [id number] Pt. Type: O Room/Bed: / Admit/Disch: 10/15/23 [...] Signatures Signed By: Ofe Atkins RN 10/15/23 07:13NormKettering Health Greene MemorialEROLOGY Ordered By: Germaine Sauer on 28-18-0555Nqkm HCG ( test) QlNegative (10/15/23 7:55 AM)[facility] Man SeroAmbulatory Visit Summaryon 09-13-2023 Ambulatory Visit [...] Visceral hypersensitivity syndrome Refills: 4 Pickup at [facility] #[id number] New polyethylene glycol 3350 (Miralax 3350 17 gram packet) 17 Gram By Mouth Every day Weight loss Nausea and vomiting Heartburn Bipolar disorder Stress- related physiological response affecting medical condition Visceral hypersensitivity syndrome Refills: 5 Pickup at [facility] #66210 Unchanged alprazolam (Xanax 0.5 mg Tab) 1 [...] prescribing physicianif questions or concerns Pharmacy Information [facility] #[id number]: [address] [place], [place] [id number] [phone] Allergies No Known Medication Allergies Problems Ongoing [...] you for choosing us for your care. [facility] HospitalGastroenterology Office/Clinic Noteon 53-54-6046Qurrwahmkmswfenc Office/Clinic NoteGastroenterology Office/Clinic Note Chief Complaint ref [...] Daily, # 30 tab(s), Refills(s) 4, Pharmacy: [facility] #[id number], 167, cm, 09/13/23 14:57:00 EDT, Height/Length Dosing, 48.9, kg, 09/13/23 14:57:00 EDT, Weight Dosing polyethylene glycol 3350, 17 gm, Oral, Daily, # 527 gm, Refills(s) 5, Pharmacy: [facility] #[id number], 167, cm, 09/13/23 14:57:00 EDT, Height/Length Dosing, 48.9, kg, 09/13/23 14:57:00 EDT, Weight Dosing Colonoscopy (Hospital Procedure) EGD Endoscopy (Hospital Procedure) 2. Nausea and vomiting (R11.2: Nausea with vomiting, unspecified) Ordered: pantoprazole, 40 mg = 1 tab(s), Oral, Daily, # 30 tab(s), Refills(s) 4, Pharmacy: [facility] #[id number], 167, cm, 09/13/23 14:57:00 EDT, Height/Length Dosing, 48.9, kg, 09/13/23 14:57:00 EDT, Weight Dosing polyethylene glycol 3350, 17 gm, Oral, Daily, # 527 gm, Refills(s) 5, Pharmacy: [facility] #[id number], 167, cm, 09/13/23 14:57:00 EDT, Height/Length Dosing, 48.9, kg, 09/13/23 14:57:00 EDT, Weight Dosing Colonoscopy (Hospital Procedure) EGD Endoscopy (Hospital Procedure) 3. Heartburn (R12: Heartburn) Ordered: pantoprazole, 40 mg = 1 tab(s), Oral, Daily, # 30 tab(s), Refills(s) 4, Pharmacy: [facility] #[id number], 167, cm, 09/13/23 14:57:00 EDT, Height/Length Dosing, 48.9, kg, 09/13/23 14:57:00 EDT, Weight Dosing polyethylene glycol 3350, 17 gm, Oral, Daily, # 527 gm, Refills(s) 5, Pharmacy: [facility] #[id number], 167, cm, 09/13/23 14:57:00 EDT, Height/Length Dosing, 48.9, kg, 09/13/23 14:57:00 EDT, Weight Dosing Colonoscopy (Hospital Procedure) EGD Endoscopy (Hospital Procedure) 4. Bipolar disorder (F31.9: Bipolar disorder, unspecified) Ordered: pantoprazole, 40 mg (more content not included)...[facility] Memorial HospitalComment on above:Result Comment: Electronically Signed By: Zenia ELLISON, Alex Kapoor.br\Date and Time Signed: 09/12/2414:22 CAROLTCNPLeila 51-99-1564JHEG Telephone (ENDOMN) INDU ST ([id number]) 1995 F Date Time Provider Department 08/14/23 KARINA VINCENT During your visit today, we recorded the following information about you: Twyla Caraballo MA 08/14/2023 11:09 AM Signed Received MRI results completed 08/02/2023, scanned to chart Twyla Caraballo Platform Material Handler Manager II Endocrinology AND Metabolism [facility] F20 AND X20 Allergies As of [...] (None) Encounter Status:Closed by TWYLA CARABALLO on [facility]/14/23[facility] Pituitary and Sella turcica WO and W contrast Cortes 80-85-4409Y[address] [address] Magnetic Resonance Report Signed Patient: INDU ST MR#: [id number] : 1995 Acct:[id number] Age/Sex: 27 / F ADM Date: 08/02/23 Loc: MRI Attending Dr: Non-Staff Physician MDior Ordering Physician: PhysicianNon-Staff Alda Date of Service: 08/02/23 Procedure(s): MR pituitary wo/w con Accession Number(s): [id number] cc: CAROLYNE COLLAZO ; Physician,Non-Staff Alda [address] [address] Patient Name: INDU ST MRN: TB[facility]:[id number] date: 1995 Sex: F Assigned Patient Location: MRI Current Patient Location: Accession/Order Number: [id number] Exam Date: 08/02/2023 14:35 Report Date: 08/04/2023 [...] M.D. Signed By: 08/04/232322 DD/ 19 TD/TT: Trailer Technician:TBHRadiology, Radiologist, - 08/04/2023 [place] [address] Magnetic Resonance Report Signed Patient: INDU ST MR#: [id number] : 1995 Acct:[id number] Age/Sex: 27 / F ADM Date: 08/02/23 Loc: MRI Attending Dr: Non-Staff Physician Lizama Ordering Physician: Palmira Sarah M.D. Date of Service: 08/02/23 Procedure(s): MR pituitary wo/w con Accession Number(s): [id number] cc: CAROLYNE COLLAZO ; Physician,Non-Staff Alda [facility] [place] [id number] Patient Name: INDU ST MRN: [facility]:[id number] date: 1995 Sex: F Assigned Patient Location: MRI Current Patient Location: Accession/Order Number: [id number] Exam Date: 08/02/2023 14:35 Report Date: 08/04/2023 [...] M.D. Signed By: 08/04/232322 DD/ 19 TD/TT: Trailer Technician: DEION [facility] HospitalRadiology Study observation (narrative)[facility] Pituitary and Sella turcica WO and W contrast IVOrdered By: Radiologist Radiology on 23-68-1563TCTUHannibal Regional Hospital Work Phone: cbc W Auto Differential panel (Bld)on 07-20-2023 Basophils (Bld) [#/Vol]0.03 10*3/[facility] Basophils/100 WBC (Bld)0.3 %0.0 - 2.0 %[facility] Eosinophils (Bld) [#/Vol]0.00 10*3/uLGuernsey Memorial Hospital Eosinophils/100 WBC (Bld)0.0 %0.0 - 6.0 %[facility] Erythrocyte distribution width (RBC) [Ratio]14.5 %11.5 - 14.5 %[facility] HospitalHematocrit (Bld) [Volume fraction]39.1 %36.0 - 46.0 % [facility] HospitalHemoglobin (Bld) [Mass/Vol]13.5 g/dL12.0 - 16.0 g/dLUnWilson HealthImdoctors hospital of [facility] granulocytes (Bld) [#/Vol]0.03 10*3/[facility] granulocytes/100 WBC (Bld)0.3 % 0.0 - 0.9 %[facility] Memorial HospitalComment on above:Immature Granulocyte Count (IG) includes promyelocytes, myelocytes and metamyelocytes but does not include bands. Percent differential counts (%) should be interpreted in the context of the absolute cell counts (cells/UL).Interpretation and review of laboratory resultsAbnormalUniMorrow County HospitalLymphocytes (Bld) [#/Vol]0.98 10*3/uLLowUnWilson HealthLymphocytes/100 WBC (Bld) 8.5 %13.0 - 44.0 %[facility] (RBC) [Entitic mass]28.7 pg26.0 - 34.0 pgUnSelect Medical Specialty Hospital - Columbus SouthHC (RBC) [Mass/Vol]34.5 g/dL 32.0 - 36.0 g/dLSelect Medical Specialty Hospital - CincinnatiV (RBC) [Entitic vol]83 fL80 - 100 fLUniMorrow County HospitalMonocytes (Bld) [#/Vol]0.13 10*3/uL [facility] HospitalMonocytes/100 WBC (Bld)1.1 %2.0 - 10.0 % [facility] HospitalNeutrophils (Bld) [#/Vol]10.32 10*3/uLHigh [facility] HospitalComment on above:Percent differential counts (%) should be interpreted in the context of the absolute cell counts (cells/uL). Neutrophils/100 WBC (Bld)89.8 %40.0 - 80.0 %[facility] Nucleated RBC/100 WBC (Bld) [Ratio]0.0 %[facility] Platelets (Bld) [#/Vol]290 10*3/[facility]woodRBC (Bld) [#/Vol]4.71 10*6/[facility] BeachwoodWBC (Bld) [#/Vol]11.5 10*3/[facility] HospitalUnWilson Health Basophils (Bld) [#/Vol]0.03 x10*3/uLNormal0.00-0.10[facility] HospitalComment on above:Performed By: #### 91259-0 #### JIMENA Mark ([id number]) [facility] ([facility]) [address] [place] [address] 67575Gudbxcjmi/100 WBC (Bld)0.3 %Normal0.0-2.0UnDunlap Memorial HospitalComment on above:Performed By: #### 23318-3 #### JIMENA Mark ([id number]) [facility] ([facility]) [address] [place] [address] 96861Utyhxbgdrrw (Bld) [#/Vol]0.00 x10*3/uLNormal0.00-0.70[facility] HospitalComment on above:Performed By: #### 02164-9 #### JIMENA Mark ([id number]) [facility] ([facility]) [address] [place] [address] 10156Lqfhlhjiiqx/100 WBC (Bld)0.0 %Normal0.0-6.0UnDunlap Memorial HospitalComment on above:Performed By: #### 16818-4 #### JIMENA Mark ([id number]) [facility] ([facility]) [address] [place] [address] 23842Vreusaozlnc distribution width (RBC) [Ratio]14.5 %Normal 11.5-14.5UnDunlap Memorial HospitalComment on above:Performed By: #### 50908-7 #### JIMENA Mark ([id number]) [facility] ([facility]) [address] [place] [address] 49922Bpoifltvxk (Bld) [Volume fraction]39.1 %Ruerkc75.0-46.0 [facility] HospitalComment on above:Performed By: #### 86820-7 #### JIMENA Mark ([id number]) [facility] ([facility]) [address] [place] [address] 47258Mdqncdloyj (Bld) [Mass/Vol]13.5 g/oVHakfnt91.0-16.0UnDunlap Memorial HospitalComment on above:Performed By: #### 25333-7 #### JIMENA Mark ([id number]) [facility] ([facility]) [address] [place] [address] 06261Hkbikpjo granulocytes (Bld) [#/Vol]0.03 x10*3/uLNormal0.00-0.70 [facility] HospitalComment on above:Performed By: #### 35462-8 #### JIMENA Mark ([id number]) [facility] ([facility]) [address] [place] [address] 89096Amrkiufi granulocytes/100 WBC (Bld)0.3 %Normal0.0-0.9UnDunlap Memorial HospitalComment on above:Result Comment: Immature Granulocyte Count (IG) includes promyelocytes, myelocytes and metamyelocytes but does not include bands. Percent differential counts (%) should be interpreted in the context of the absolute cell counts (cells/UL).Performed By: #### 73829-8 #### JIMENA Mark ([id number]) [facility] ([facility]) [address] [place], [place] [address]Lymphocytes (Bld) [#/Vol]0.98 x10*3/uLLow1.20-4.80UnDunlap Memorial HospitalComment on above:Performed By: #### 40780-5 #### JIMENA Mark ([id number]) [facility] ([facility]) [address] [place], [place] [address]Lymphocytes/100 WBC (Bld)8.5 %Fyrapc04.0-44.0UnDunlap Memorial HospitalComment on above:Performed By: #### 05200-5 #### JIMENA Mark ([id number]) [facility] ([facility]) [address] [place] [address] (RBC) [Entitic mass]28.7 ruDgalvl76.0-34.0UnDunlap Memorial HospitalComment on above:Performed By: #### 25280-3 #### JIMENA Mark ([id number]) [facility] ([facility]) [address] [place], [place] [address]MCHC (RBC) [Mass/Vol]34.5 g/zERsddfa75.0-36.0UnDunlap Memorial HospitalComment on above:Performed By: #### 67378-1 #### JIMENA Mark ([id number]) [facility] ([facility]) [address] [place], [place] [address]V (RBC) [Entitic vol]83 bHZoqnzj46-767OqtbjzylxzDunlap Memorial HospitalComment on above:Performed By: #### 43130-5 #### JIMENA Mark ([id number]) [facility] ([facility]) [address] [place] [address] 26581Nsklrmqgq (Bld) [#/Vol]0.13 x10*3/uLNormal0.10-1.00UnDunlap Memorial HospitalComment on above:Performed By: #### 65333-2 #### JIMENA Mark ([id number]) [facility] ([facility]) [address] [place] [address] 02162Vrqgjxpcy/100 WBC (Bld)1.1 %Normal2.0-10.0UnDunlap Memorial HospitalComment on above:Performed By: #### 44670-1 #### JIMENA Mark ([id number]) [facility] ([facility]) [address] [place] [address] 75267Ojqzeetihhk (Bld) [#/Vol]10.32 x10*3/uLHigh1.20-7.70UnDunlap Memorial HospitalComment on above:Result Comment: Percent differential counts (%) should be interpreted in the context of the absolute cell counts (cells/uL).Performed By: #### 88973-9 #### JIMENA Mark ([id number]) [facility] ([facility]) [address] [place] [address] 46016Zwefwjujzao/100 WBC (Bld)89.8 %Ixjkjt15.0-80.0UnDunlap Memorial HospitalComment on above:Performed By: #### 40071-3 #### JIMENA Mark ([id number]) [facility] ([facility]) [address] [place] [address] 31574Zjkigcvfi RBC/100 WBC (Bld) [Ratio]0.0 /100 WBCsNormal0.0-0.0 [facility] HospitalComment on above:Performed By: #### 01668-8 #### JIMENA Mark ([id number]) [facility] ([facility]) [address] [place] [address] 42713Asnzjwpuf (Bld) [#/Vol]290 x10*3/qBMqjcny390-311ZzshcpgllhDunlap Memorial HospitalComment on above:Performed By: #### 87683-9 #### JIMENA Mark ([id number]) [facility] ([facility]) [address] [place] [address] 94247WKE (Bld) [#/Vol]4.71 x10*6/uLNormal4.00-5.20UnDunlap Memorial HospitalComment on above:Performed By: #### 33186-3 #### JIMENA Mark ([id number]) [facility] ([facility]) [address], [place] [address]FPP (Bld) [#/Vol]11.5 x10*3/uLHigh4.4-11.3UnDunlap Memorial HospitalComment on above:Performed By: #### 92370-7 #### JIMENA Mark ([id number]) [facility] ([facility]) [address], [place] [address]UE CHEST ABDOMEN PELVIS W IV CONTRASTon 94-35-6396WR CHEST ABDOMEN PELVIS W IV CONTRASTInterpreted By: Mag Santiago, STUDY: CT CHEST ABDOMEN PELVIS W IV CONTRAST; 07/20/2023 5:39 pm INDICATION: Signs/Symptoms:Persistent vomiting, epigastric pain in the chest.. COMPARISON: Chest x-ray 07/20/2023. ACCESSION NUMBER(S): [id number] ORDERING CLINICIAN: ABIODUN OCHOA TECHNIQUE: Axial CT [...] underdistention versus colitis. MACRO: None. Signed by: Mga Santiago 07/20/2023 6:51 PM Dictation workstation: [id number]g Health PrebleCT Chest and Abdomen and Pelvis W contrast Cortes 58-58-7806RYHCP: 1. No consolidation or pleural effusion. 2. [...] Mag Santiago 07/20/2023 6:51 PM Dictation workstation: [id number] MMODALInterpreted By: Mag Santiago, STUDY: CT CHEST ABDOMEN PELVIS W IV CONTRAST; 07/20/2023 5:39 pm INDICATION: Signs/Symptoms:Persistent vomiting, epigastric pain in the chest.. COMPARISON: Chest x-ray 07/20/2023. ACCESSION NUMBER(S): [id number] ORDERING CLINICIAN: ABIODUN OCHOA TECHNIQUE: Axial CT [...] wall soft tissues are within normal limits. Mag Rojas, DO - 07/20/2023 Interpreted By: Mag Santiago, STUDY: CT CHEST ABDOMEN PELVIS W IV CONTRAST; 07/20/2023 5:39 pm INDICATION: Signs/Symptoms:Persistent vomiting, epigastric pain in the chest.. COMPARISON: Chest x-ray 07/20/2023. ACCESSION NUMBER(S): [id number] ORDERING CLINICIAN: ABIODUN OCHOA TECHNIQUE: Axial CT [...] Mag Santiago 07/20/2023 6:51 PM Dictation workstation: [id number] [facility] Work Phone: Radiology Study observation (narrative)[facility] Work Phone: CT Chest and Abdomen and Pelvis W contrast IVOrdered By: Mag Santiago on 74-30-5839QloqmwaxlmWilson Health Work Phone: Choriogonadotropin.beta subuniton 42-46-4803XKW.beta subunit Qnm[IU]/mLNormal<5UnDunlap Memorial HospitalComment on above:Order Comment: Total HCG measurement is performed using the Jade Saleem Access Immunoassay which detects intact HCG and free beta HCG subunit. This test is not indicated for use as a tumor marker. HCG testing is performed using a different test methodology at [facility] than other [facility]. Direct result comparison should only be made within the same method.Performed By: #### 06133-2 #### JIMENA Mark ([id number]) [facility] ([facility]) [address] [place] [address] 91198Piojdpxuwcjqo metabolic 2000 panelon 87-30-5276Zmnozxg BCP dye [Mass/Vol]4.7 g/dL3.4 - 5.0 g/dLUnWilson HealthALP [Catalytic activity/Vol]47 U/L33 - 110 U/[facility] CenterALT With P-5'-P [Catalytic activity/Vol]14 U/L7 - 45 U/[facility] CenterComment on above:Patients treated with Sulfasalazine may generate falsely decreased results for ALT.Anion gap [Moles/Vol]18 mmol/L10 - 20 mmol/[facility] CenterAST With P-5'-P [Catalytic activity/Vol]15 U/L9 - 39 U/[facility] CenterBilirubin [Mass/Vol]0.6 mg/dL0.0 - 1.2 mg/dLUnWilson HealthCalcium [Mass/Vol]9.8 mg/dL8.6 - 10.3 mg/dLUnWilson HealthChloride [Moles/Vol]105 mmol/L98 - 107 mmol/[facility] CenterCO2 [Moles/Vol]19 mmol/LLow21 - 32 mmol/[facility] CenterCreatinine [Mass/Vol]0.77 mg/dL0.50 - 1.05 mg/dLUnWilson HealtheGFR- PINFUniMorrow County HospitalComment on above:Calculations of estimated GFR are performed using the 2020 CKD-EPI Study Refit equation without therace variable for the IDMS-Traceable creatinine methods. https://jasn.asnjournals.org/content/early/ASN.7788080778 Glucose [Mass/Vol]147 mg/gIZrrs79 - 99 mg/dLUnWilson Health Interpretation and review of laboratory resultsAbnormalUniMorrow County HospitalPotassium [Moles/Vol]3.8 mmol/L3.5 - 5.3 mmol/[facility] CenterProtein [Mass/Vol]7.3 g/dL6.4 - 8.2 g/dLUnWilson HealthSodium [Moles/Vol]138 mmol/L136 - 145 mmol/[facility] CenterUrea nitrogen [Mass/Vol]15 mg/dL6 - 23 mg/dLUnWilson HealthUnWilson HealthAlbumin BCP dye [Mass/Vol]4.7 g/dL Normal3.4-5.0UnDunlap Memorial HospitalComment on above: Performed By: #### 93897-5 #### JIEMNA Mark ([id number]) [facility] ([facility]) [address] [place] [address] 568[address]QVR [Catalytic activity/Vol]47 U/OVmcosq94-568ZroudyvqufDunlap Memorial HospitalComment on above:Performed By: #### 78573-3 #### JIMENA Mark ([id number]) [facility] ([facility]) [address] [place] [address] 88317YTW With P-5'-P [Catalytic activity/Vol]14 U/LNormal7-45 [facility]cyrus HospitalComment on above:Result Comment: Patients treated with Sulfasalazine may generate falsely decreased results for ALT.Performed By: #### 57049-2 #### JIMENA Mark ([id number]) [facility] ([facility]) [address] [place] [address] 52049Xlysl gap [Moles/Vol]18 mmol/SWhzvlj76-74ZzpimwgynrDunlap Memorial HospitalComment on above:Performed By: #### 46128-8 #### JIMENA Mark ([id number]) [facility] ([facility]) [address] [place] [address] 02253JSU With P-5'-P [Catalytic activity/Vol]15 U/LNormal9-39 [facility] Bucy[facility] HospitalComment on above:Performed By: #### 75078-8 #### JIMENA Mark ([id number]) [facility] ([facility]) [address] [place] [address] 88289Nzhagopxp [Mass/Vol]0.6 mg/dLNormal0.0-1.2UnDunlap Memorial HospitalComment on above:Performed By: #### 82240-6 #### JIMENA Mark ([id number]) [facility] ([facility]) [address] [place] [address] 68316Asrvqzb [Mass/Vol]9.8 mg/dLNormal8.6-10.3UnDunlap Memorial HospitalComment on above:Performed By: #### 69694-9 #### JIMENA Mark ([id number]) [facility] ([facility]) [address] [place] [address] 44528Zebkauzw [Moles/Vol]105 mmol/IEkewvv52-764XsjnyieyilDunlap Memorial HospitalComment on above:Performed By: #### 91717-5 #### JIMENA Mark ([id number]) [facility] ([facility]) [address] [place] [address], [place] [address] [Moles/Vol]19 mmol/MAuc97-09FcjeeybixcDunlap Memorial HospitalComment on above:Performed By: #### 65284-1 #### JIMENA Mark ([id number]) [facility] ([facility]) [address] [place] [address] 40960Lkecspmbzj [Mass/Vol]0.77 mg/dLNormal0.50-1.05UnDunlap Memorial HospitalComment on above:Performed By: #### 97414-0 #### JIMENA Mark ([id number]) [facility] ([facility]) [address] [place] [address] 59110SSS/1.73 sq M.predicted MDRD (S/P/Bld) [Vol rate/Area] mL/min/{1.73_m2}Normal>60UnDunlap Memorial HospitalComment on above:Result Comment: Calculations of estimated GFR are performed using the 2020 CKD-EPI Study Refit equation without the race variable for the IDMS-Traceable creatinine methods. https://jasn.asnjournals.org/content/early/ASN.6866918359Crezvbjjx By: #### 09848-0 #### JIMENA Mark ([id number]) [facility] ([facility]) [address] [place] [address] 61780Mtrbxre [Mass/Vol]147 mg/pBRliq92-23HbuxxbhyvqDunlap Memorial HospitalComment on above:Performed By: #### 39499-9 #### JIMENA Mark ([id number]) [facility] ([facility]) [address] [place] [address] 65008Uaqzwvteo [Moles/Vol]3.8 mmol/LNormal3.5-5.3UnDunlap Memorial HospitalComment on above:Performed By: #### 88134-2 #### JIMENA Mark ([id number]) [facility] ([facility]) [address] [place] [address] 58640Asfxqwb [Mass/Vol]7.3 g/dLNormal6.4-8.2UnDunlap Memorial HospitalComment on above:Performed By: #### 02975-7 #### JIMENA Mark ([id number]) [facility] ([facility]) [address] [place] [address] 07841Uxnqmb [Moles/Vol]138 mmol/VMzlhgi486-561UkjylggzzsAvita Health System Bucyrus HospitalComment on above:Performed By: #### 58155-4 #### JIMENA Mark ([id number]) [facility] ([facility]) [address] [place] [address] 76721Twvw nitrogen [Mass/Vol]15 mg/dLNormal6-23[facility] HospitalComment on above:Performed By: #### 73243-2 #### JIMENA Mark ([id number]) [facility] ([facility]) [address] [place] [address] 01816LMIX SCREEN,URINEon 76-69-5555Txejybrtvsip Screen Ql (U) NegativeNormalPresumptive NegativeAvita Health System Bucyrus Hospital Comment on above:Order Comment: Drug screen results are presumptive and should not be used to assess compliance with prescribed medication. Contact the performing [facility] laboratory to add-on definitive confirmatory testing [...] propranolol.Performed By: #### DRUG3 #### JIMENA Mark ([id number]) [facility] ([facility]) [address] [place] [address] 40475Gatybnvlghkk Screen Ql (U)NegativeNormalPresumptive Negative [facility] HospitalComment on above:Order Comment: Drug screen results are presumptive and should not be used to assess compliance with prescribed medication. Contact the performing [facility] laboratory to add-on definitive confirmatory testing [...] NG/MLPerformed By: #### DRUG3 #### JIMENA Mark ([id number]) [facility] ([facility]) [address] [place] [address] 64354Sozbyqczeaxvkah Ql (U)NegativeNormalPresroosevelt general hospitaltive Negative [facility] HospitalComment on above:Order Comment: Drug screen results are presumptive and should not be used to assess compliance with prescribed medication. Contact the performing [facility] laboratory to add-on definitive confirmatory testing [...] NG/MLPerformed By: #### DRUG3 #### JIMENA Mark ([id number]) [facility] ([facility]) [address] [place] [address] 94379Yztmawesdcdyuyv Screen Ql (U)NegativeNormalPresumptive Negative [facility] HospitalComment on above:Order Comment: Drug screen results are presumptive and should not be used to assess compliance with prescribed medication. Contact the performing [facility] laboratory to add-on definitive confirmatory testing [...] NG/MLPerformed By: #### DRUG3 #### JIMENA Mark ([id number]) [facility] ([facility]) [address] [place] [address] 81278Qmbogqanywad Screen Ql (U)PositiveAbnormalPresumptive Negative [facility] HospitalComment on above:Order Comment: Drug screen results are presumptive and should not be used to assess compliance with prescribed medication. Contact the performing [facility] laboratory to add-on definitive confirmatory testing [...] NG/MLPerformed By: #### DRUG3 #### JIMENA Mark ([id number]) [facility] ([facility]) [address] [place] [address] 48423zwzsmAXC+Norfentanyl Screen Ql (U)NegativeNormalPresumptive NegativeAvita Health System Bucyrus HospitalComment on above:Order Comment: Drug screen results are presumptive and should not be used to assess compliance with prescribed medication. Contact the performing [facility] laboratory to add-on definitive confirmatory testing [...] NG/MLPerformed By: #### DRUG3 #### JIMENA Mark ([id number]) [facility] ([facility]) [address] [place] [address] 15789Vmwlebaxb Screen Ql (U)NegativeNormalPresumptive Negative [facility] HospitalComment on above:Order Comment: Drug screen results are presumptive and should not be used to assess compliance with prescribed medication. Contact the performing [facility] laboratory to add-on definitive confirmatory testing [...] Comment: CUTOFF LEVEL: 150 NG/ML The metabolite Y-nvxkz-uiyifmtqlebswi (LAAM) is not detected by this method in concentrations that would be found in the urine of patients on LAAM therapy.Performed By: #### DRUG3 #### JIMENA Mark ([id number]) [facility] ([facility]) [address] [place] [address] 26802Ytwieam Screen Ql (U)NegativeNormalPresumptive Negative [facility] HospitalComment on above:Order Comment: Drug screen results are presumptive and should not be used to assess compliance with prescribed medication. Contact the performing [facility] laboratory to add-on definitive confirmatory testing [...] result).Performed By: #### DRUG3 #### JIMENA Mark ([id number]) [facility] ([facility]) [address] [place] [address] 39103vazPDERYR+oxyMORphone Screen Ql (U)NegativeNormalPresumptive NegativeAvita Health System Bucyrus HospitalComment on above:Order Comment: Drug screen results are presumptive and should not be used to assess compliance with prescribed medication. Contact the performing [facility] laboratory to add-on definitive confirmatory testing [...] oxymorphone.Performed By: #### DRUG3 #### JIMENA Mark ([id number]) [facility] ([facility]) [address] [place], [place] [address]Qdogofsrtkblm Ql (U)NegativeNormalPresumptive Negative [facility] HospitalComment on above:Order Comment: Drug screen results are presumptive and should not be used to assess compliance with prescribed medication. Contact the performing [facility] laboratory to add-on definitive confirmatory testing [...] dextromethorphan.Performed By: #### DRUG3 #### JIMENA Mark ([id number]) [facility] ([facility]) [address] [place] [address] 91847Gwwo Screen, Urineon 24-75-9994Qbrxujgcvwpw Screen Ql (U) NegativePresumptive [facility] on above: CUTOFF LEVEL: 500 NG/ML Cross-reactivity has been reported with high concentrations of the following drugs: buproprion, chloroquine, chlorpromazine, ephedrine, mephentermine, fenfluramine, phentermine, phenylpropanolamine, pseudoephedrine, and propranolol. Barbiturates Screen Ql (U)NegativePresumptive [facility] on above:CUTOFF LEVEL: 200 NG/MLBenzodiazepines Ql (U)Negative Presumptive [facility] on above:CUTOFF LEVEL: 200 NG/MLBenzoylecgonine Screen Ql (U)NegativePresumptive Negative [facility] on above:CUTOFF LEVEL: 150 NG/ML Cannabinoids Screen Ql (U)PositiveAbnormalPresumptive [facility] on above:CUTOFF LEVEL: 50 NG/ML fentaNYL+Norfentanyl Screen Ql (U)NegativePresumptive [facility] on above:CUTOFF LEVEL: 5 NG/MLInterpretation and review of laboratory resultsAbnoRegency Hospital Cleveland WestMethadone Screen Ql (U)NegativePresumptive [facility] Comment on above:CUTOFF LEVEL: 150 NG/ML The metabolite H-vmxov-wlgoiglssihrha (LAAM) is not detected by this method in concentrations that would be found in the urine of patients on LAAM therapy. Opiates Screen Ql (U)NegativePresumptive NegativePrem[facility] Health [facility] on above:CUTOFF LEVEL: 300 NG/ML The opiate screen does not detect fentanyl, meperidine, or tramadol. Oxycodone is not consistently detected (refer to Oxycodone Screen, Urine result). oxyCODONE+oxyMORphone Screen Ql (U)NegativePresumptive NegativePrem[facility] Health [facility] on above:CUTOFF LEVEL: 100 NG/ML This test will accurately detect both oxycodone and oxymorphone. Phencyclidine Ql (U)NegativePresumptive NegativePremier Health [facility] on above:CUTOFF LEVEL: 25 NG/ML Cross-reactivity has been reported with dextromethorphan. Drug screen results are presumptive and should not be used to assess compliance with prescribed medication. Contact the performing [facility] laboratory to add-on definitive confirmatory testing [...] to the laboratory medical directors. [facility] HospitalECG 12-LEADon 85-69-3865AIV 12-LEADVentricular Rate 68 Atrial Rate 67 P-R Interval 110 QRS Duration 126 Q-T Interval 419 QTC Calculation(Bazett) 446 P [place] 82 R [place] 77 T [place] 67 QRS Count 11 Q Onset 249 T Offset 459 QTC Fredericia 437 Diagnosis Sinus rhythm Borderline short WI interval Nonspecific intraventricular conduction delay ST elev, probable normal early repol pattern See ED provider note for full interpretation and clinical correlation Confirmed by Lynsey Luna ([id number]) on 07/28/2023 12:23:14 [facility] HospitalHCG.beta subunit Qnon 30-09-7722Jvpcwsssjutpbk and review of laboratory resultsNormalUZanesville City Hospital HCG measurement is performed using the Jade [employer] Access Immunoassay which detects intact HCG and free beta HCG subunit. This test is not indicated for use as a tumor marker. HCG testing is performed using a different test methodology at [facility] than other [facility]. Direct result comparison should only be made within the same method. [facility] HospitalHuman Chorionic Gonadotropin, Serum Quantitativeon 45-58-1588CHE.beta subunit QnNINF [facility] Memorial HospitalLactateon 63-34-2532Qkyrbxj [Moles/Vol]1.4 mmol/L0.4 - 2.0 mmol/[facility] Medical CenterLactate [Moles/Vol]1.4 mmol/LNormal0.4-2.0[facility] HospitalComment on above: Order Comment: Venipuncture immediately after or during the administration of Metamizole may lead to falsely low results. Testing should be performed immediately prior to Metamizole dosing.Performed By: #### 2524-7 #### JIMENA Mark ([id number]) [facility] ([facility]) [address] [place] [address] 29230Dkrtulh [Moles/Vol]2.2 mmol/LHigh0.4 - 2.0 mmol/[facility] Medical CenterLactate [Moles/Vol]2.2 mmol/LHigh0.4-2.0[facility] HospitalComment on above:Order Comment: Venipuncture immediately after or during the administration of Metamizole may lead to falsely low results. Testing should be performed immediately prior to Metamizole dosing.Performed By: #### 2524-7 #### JIMENA Mark ([id number]) [facility] ([facility]) [address] [place] [address] 52958Rxieppz [Moles/Vol]on 18-63-4412Rlzjtwqeseiykl and review of laboratory resultsNoRegency Hospital Cleveland WestVenipuncture immediately after or during the administration of Metamizole may lead to falsely low results. Testing should be performed immediately prior to Metamizole dosing.[facility] HospitalInterpretation and review of laboratory resultsAbnoRegency Hospital Cleveland WestVenipuncture immediately after or during the administration of Metamizole may lead to falsely low results. Testing should be performed immediately prior to Metamizole dosing.[facility] HospitalLipaseon 55-69-3349Lbaxxd [Catalytic activity/Vol]10 U/L9 - 82 U/L [facility] Memorial HospitalLipase [Catalytic activity/Vol]on 07-20-2023 Interpretation and review of laboratory resultsNoRegency Hospital Cleveland WestVenipuncture immediately after or during the administration of Metamizole may lead to falsely low results. Testing should be performed immediately prior to Metamizole dosing.[facility] Tri[facility] Medical CenterTriacylglycerol lipaseon 75-70-6171Idflnz [Catalytic activity/Vol]10 U/LNormal9-82UnDunlap Memorial HospitalComment on above:Order Comment: Venipuncture immediately after or during the administration of Metamizole may lead to falsely low results. Testing should be performed immediately prior to Metamizole dosing.Performed By: #### 3040-3 #### JIMENA Mark ([id number]) [facility] ([facility]) [address] [place] [address] 48235Tkspyipf I.cardiac panel High sensitivity methodon 07-20-2023 Interpretation and review of laboratory resultsNoRegency Hospital Cleveland WestLess than 99th percentile of normal range cutoff- [...] performed using a different testing methodology at [facility] than at other [facility]. Direct result comparisons should only be made within the same method.[facility] HospitalTroponin I, High Sensitivityon 74-53-2298Fhjmjbma I.cardiac panel High sensitivity methodng/L0 - 13 ng/LUnWilson HealthTroponin I.cardiac panelon 52-64-2510Ejlllnza I.cardiac panel High sensitivity method<1Kxpdcg8-88PzivrsklojDunlap Memorial HospitalComment on above:Order Comment: Venipuncture immediately after or during the administration of Metamizole may lead to falsely low results. Testing should be performed immediately prior to Metamizole dosing.Performed By: #### 2524-7 #### JIMENA Mark ([id number]) [facility] ([facility]) [address] [place], [place] [address]Ouwrafvreo complete W Reflex Culture panel (U)on 07-20-2023 Appearance (U)HazyAbnormalClearGuernsey Memorial HospitalBilirubin (U) [Mass/Vol]NegativeNEGATIVEUnWilson HealthColor (U)YellowStraw, YellowUnWilson HealthEpithelial cells.squamous Auto (Urine sed) [#/Area]1-9 (SPARSE)Reference range not established. /HPFUnWilson HealthGlucose Auto test strip (U) [Mass/Vol]NegativeNEGATIVE mg/dLUnWilson HealthInterpretation and review of laboratory resultsAbnormalUniMorrow County HospitalKetones (U) [Mass/Vol]80 (2+) AbnormalNEGATIVE mg/dLUnWilson HealthLeukocyte esterase Auto test strip Ql (U)NegativeNEGATIVEUnWilson HealthMucus Auto (Urine sed) [#/Area]4+Reference range not established. /LPFUniMorrow County HospitalNitrite Auto test strip Ql (U)NegativeNEGATIVEUnWilson HealthpH (U)9.0 [pH]Abnormal5.0, 5.5, 6.0, 6.5, 7.0, 7.5, 8.0UnWilson HealthProtein (U) [Mass/Vol]>=500 (3+)AbnormalNEGATIVE mg/dL [facility] Memorial HospitalRBC (U) [#/Vol]NegativeNEGATIVEUnWilson HealthRBC Auto (Urine sed) [#/Area]1-2NONE, 1-2, 3-5 /HPF [facility] HospitalSpecific gravity (U) [Rel density]1.0251.005 - 1.035UnWilson HealthUrobilinogen (U) [Mass/Vol]mg/dLNINF - 2.0 mg/dLGuernsey Memorial HospitalWBC Auto (Urine sed) [#/Area]1-51-5, NONE /HPFUnWilson HealthYeast.budding Computer assisted (U) [#/Area]PRESENTAbnormalNONE /Parkwood HospitalUnWilson HealthAppearance (U)HazyNormalClearAvita Health System Bucyrus HospitalComment on above:Performed By: #### 25909-8 #### JIMENA Mark ([id number]) [facility] ([facility]) [address] [place] [address] 07619Jqguioubt (U) [Mass/Vol]NegativeNormalNEGATIVEAvita Health System Bucyrus HospitalComment on above:Performed By: #### 67497-1 #### JIMENA Mark ([id number]) [facility] ([facility]) [address] [place] [address] 41967Btcbq (U)YellowNormalStraw, [facility]itan HospitalComment on above:Performed By: #### 04751-9 #### JIMENA Mark ([id number]) [facility] ([facility]) [address] [place] [address] 63006Wejbjisdht cells.squamous Auto (Urine sed) [#/Area]1-9 (SPARSE) NormalReference range not established.[facility] HospitalComment on above:Performed By: #### 04836-7 #### JIMENA Mark ([id number]) [facility] ([facility]) [address] [place] [address] 99507Bxtuxai Auto test strip (U) [Mass/Vol]NegativeNormalNEGATIVE [facility] HospitalComment on above:Performed By: #### 40434-2 #### JIMENA Mark ([id number]) [facility] ([facility]) [address] [place] [address] 00763Gmqukyi (U) [Mass/Vol]80 (2+)AbnormalNEGATIVEUnDunlap Memorial HospitalComment on above:Performed By: #### 41552-7 #### JIMENA Mark ([id number]) [facility] ([facility]) [address] [place] [address] 34162Rkhwmbetc esterase Auto test strip Ql (U)NegativeNormalNEGATIVE [facility] HospitalComment on above:Performed By: #### 90209-8 #### JIMENA Mark ([id number]) [facility] ([facility]) [address] [place] [address] 27281Svguy Auto (Urine sed) [#/Area]4+ /LPFNormalReference range not established.[facility] HospitalComment on above: Performed By: #### 93316-5 #### JIMENA Mark ([id number]) [facility] ([facility]) [address] [place] [address] 77878Lyjqnvr Auto test strip Ql (U)NegativeNormalNEGATIVEUnDunlap Memorial HospitalComment on above:Performed By: #### 18068-6 #### JIMENA Mark ([id number]) [facility] ([facility]) [address] [place] [address] 09568gM (U)9.0 [pH]Normal5.0, 5.5, 6.0, 6.5, 7.0, 7.5, 8.0Av[facility] Bucyrus HospitalComment on above:Performed By: #### 08720-4 #### JIMENA Mark ([id number]) [facility] ([facility]) [address] [place] [address] 71430Xeqgvdd (U) [Mass/Vol]>=500 (3+)NormalNEGATIVEUnDunlap Memorial HospitalComment on above:Performed By: #### 88863-8 #### JIMENA Mark ([id number]) [facility] ([facility]) [address] [place] [address] 60336DVR (U) [#/Vol]NegativeNormalNEGATIVEUnDunlap Memorial HospitalComment on above:Performed By: #### 66699-0 #### JIMENA Mark ([id number]) [facility] ([facility]) [address] [place] [address] 18583NWS Auto (Urine sed) [#/Area]1-2NormalNONE, 1-2, 3-5UnDunlap Memorial HospitalComment on above:Performed By: #### 07442-3 #### JIMENA Mark ([id number]) [facility] ([facility]) [address] [place] [address] 15816Nyownpyb gravity (U) [Rel density]1.768Urwwvt4.005-1.035 [facility] HospitalComment on above:Performed By: #### 37456-9 #### JIMENA Mark ([id number]) [facility] ([facility]) [address] [place], [place] [address]Urobilinogen (U) [Mass/Vol]mg/dLNormal<2.0[facility] HospitalComment on above:Performed By: #### 65155-5 #### JIMENA Mark ([id number]) [facility] ([facility]) [address] [place] [address] 50552UDT Auto (Urine sed) [#/Area]4-7Vpegqv1-6, NONEAvita Health System Bucyrus HospitalComment on above:Performed By: #### 43511-6 #### JIMENA Mark ([id number]) [facility] ([facility]) [address] [place] [address] 63514Hbnin.budding Computer assisted (U) [#/Area]PRESENTAbnormalTUCSON HEART HOSPITALE [facility] HospitalComment on above:Performed By: #### 99300-3 #### JIMENA Mark ([id number]) [facility] ([facility]) [address] [place] [address] 45367TA CHEST 1 VIEWon 87-53-9411VY CHEST 1 VIEWInterpreted By: Mark Stanton, STUDY: XR CHEST 1 VIEW; 07/20/2023 4:05 pm INDICATION: Signs/Symptoms:cp. COMPARISON: None. ACCESSION NUMBER(S): [id number] ORDERING CLINICIAN: ABIODUN OCHOA FINDINGS: Heart is normal in size. There is no consolidation or pleural fluid. The mediastinum and bones are unremarkable. There are bilateral nipple shadows. COMPARISON OF FINDING: IMPRESSION: No acute cardiopulmonary disease. MACRO: none Signed by: Mark Stanton 07/20/2023 4:17 PM Dictation workstation: [id number]g Health PrebleXR Chest Single viewon 49-80-4096Md acute cardiopulmonary disease. MACRO: none Signed by: Mark Stanton 07/20/2023 4:17 PM Dictation workstation: [id number] MMODALInterpreted By: Mark Stanton, STUDY: XR CHEST 1 VIEW; 07/20/2023 4:05 pm INDICATION: Signs/Symptoms:cp. COMPARISON: None. ACCESSION NUMBER(S): [id number] ORDERING CLINICIAN: ABIODUN OCHOA FINDINGS: Heart is normal in size. There is no consolidation or pleural fluid. The mediastinum and bones are unremarkable. There are bilateral nipple shadows. COMPARISON OF FINDING: Mark Morel MD - 07/20/2023 Interpreted By: Mark Stanton, STUDY: XR CHEST 1 VIEW; 07/20/2023 4:05 pm INDICATION: Signs/Symptoms:cp. COMPARISON: None. ACCESSION NUMBER(S): [id number] ORDERING CLINICIAN: ABIODUN OCHOA FINDINGS: Heart is normal in size. There is no consolidation or pleural fluid. The mediastinum and bones are unremarkable. There are bilateral nipple shadows. COMPARISON OF FINDING: IMPRESSION: No acute cardiopulmonary disease. MACRO: none Signed by: Mark Stanton 07/20/2023 4:17 PM Dictation workstation: [id number] [facility] Work Phone: Radiology Study observation (narrative)[facility] Work Phone: XR Chest Single viewOrdered By: Mark Stanton on 10-96-7255TabpzsutxpWilson Health Work Phone: MRI HEAD/BRAIN WO/W CONTRon 72-10-8962[address] [address] Magnetic Resonance Report Signed Patient: INDU ST MR#: [id number] : 1995 Acct:[id number] Age/Sex: 27 / F ADM Date: 05/28/23 Loc: MRI Attending Dr: Uriel Meade D.O. Ordering Physician: Uriel Meade D.O. Date of Service: 05/28/23 Procedure(s): MR head/brain wo/w con Accession Number(s): [id number] cc: CAROLYNE COLLAZO ; Uriel Meade D.O. [place] [id number] Patient Name: INDU ST MRN: [id number] date: 1995 Sex: F Assigned Patient Location: MRI Current Patient Location: MRI Accession/Order Number: [id number] Exam Date: 05/28/2023 12:42 Report Date: 05/28/2023 [...] Signed By: 05/28/23 1424 DD/ 21 TD/TT: Trailer Technician:TERRYHRadiology, Radiologist, - 05/28/2023 [place] [address] Magnetic Resonance Report Signed Patient: INDU ST MR#: [id number] : 1995 Acct:[id number] Age/Sex: 27 / F ADM Date: 05/28/23 Loc: MRI Attending Dr: Uriel Meade D.O. Ordering Physician: Uriel Meade D.O. Date of Service: 05/28/23 Procedure(s): MR head/brain wo/w con Accession Number(s): [id number] cc: CAROLYNE COLLAZO ; Uriel Meade D.O. [place] [address] Patient Name: INDU ST MRN: [id number] date: 1995 Sex: F Assigned Patient Location: MRI Current Patient Location: MRI Accession/Order Number: [id number] Exam Date: 05/28/2023 12:42 Report Date: 05/28/2023 [...] M.D. Signed By: 05/28/231423 DD/ 21 TD/TT: Trailer Technician: [facility] HospitalRadiology Study observation (narrative)[facility] HospitalMRI HEAD/BRAIN WO/W CONTROrdered By: Radiologist Radiology on 49-91-3951[facility] Work Phone: tbh PROLACTINon 93-62-8973Nsasamlduoddtw and review of laboratory resultsAbnormalHannibal Regional HospitalUztctpzcgePCXTESGJI040.0 ng/mLAbnormal4.8 - 33.4 ng/mLNOMS HealthcareComment on above:Performed at: [facility] LabManuel [place] [id number] Plaster Model And Mold Maker: Don Tolentino PhD, Phone: [phone] [facility] CBC WITH AUTO DIFFon 59-24-4141GFXGYRUZX ABSOLUTE AUTO0.0NOChristian HospitalBasophils/100 WBC (Bld)0.4 %0.2 - 2.0 %[facility] Eosinophils/100 WBC (Bld)0.1 %Low0.9 - 7.0 %[facility] HospitalErythrocyte distribution width (RBC) [Ratio]13.5 %11.0 - 15.0 %[facility] HospitalHematocrit (Bld) [Volume fraction]37.2 %36.0 - 48.0 %[facility] HospitalHemoglobin (Bld) [Mass/Vol]12.0 g/dL12.0 - 16.0 g/dLHannibal Regional HospitalIMMATURE GRANULOCYTES ABS AUTO 0.01NOAL HealthcareImmature granulocytes/100 WBC (Bld)0.1 %0.0 - 0.5 %[facility] HealthcareInterpretation and review of laboratory resultsAbnormalHannibal Regional Hospital LYMPHOCYTES ABSOLUTE AUTO2.3NOChristian HospitalLymphocytes/100 WBC (Bld)33.3 %20.5 - 60.0 %[facility] HospitalH (RBC) [Entitic mass]28.0 pg26.7 - 34.0 pgSaint Alexius HospitalHC (RBC) [Mass/Vol]32.3 g/dL29.9 - 35.2 g/dLSaint Alexius HospitalV (RBC) [Entitic vol]86.7 fL81.0 - 99.0 fLHannibal Regional HospitalMONOCYTES ABSOLUTE AUTO0.4NOAL HealthcareMonocytes/100 WBC (Bld)5.1 %1.7 - 12.0 %[facility] HospitalNEUTROPHILS ABSOLUTE AUTO4.2NOMS HealthcareNeutrophils/100 WBC (Bld)61.0 %43.0 - 75.0 %[facility] HospitalPlatelet mean volume (Bld) [Entitic vol]9.9 fL9.5 - 13.5 fLHannibal Regional HospitalTB EO #0.0NOMS [facility] HospitalTB WBV120QIVESaint Luke's Hospital RBC4.29NOSaint Luke's Hospital WBC6.9NOChristian HospitalCLINISYNCNJACKSON C. MEMORIAL [facility] HealthcareALL THYROID STIM HORMONEon 34-78-3455UZS Qn2.036 m[IU]/LNOMS HealthcareNo Panel Informationon 25-40-9211RZXJNHKLEGHVI HealthcareTB PREG QUANT HCGon 44-45-4200CXT QUANTITATIVE<1mIU/mLNOMS HealthcareComment on above:5-50 0.2-1 WEEK 50-500 1-2 WEEKS 100-5,000 2-3 WEEKS 500-10,000 3-4 WEEKS 1,000-50,000 4-5 WEEKS 10,000-100,000 5-6 WEEKS 15,000-200,000 6-8 WEEKS 10,000-100,000 2-3 MONTHS US PELVIS W/ TRANSVAGINALon 65-91-3701[address] [address] Ultrasound Report Signed Patient: INDU ST MR#: [id number] : 1995 Acct:[id number] Age/Sex: 27 / F ADM Date: 05/23/23 Loc: US Attending Dr: Uriel Meade D.O. Ordering Physician: Uriel Meade D.O. Date of Service: 05/23/23 Procedure(s): US pelvis w/ transvaginal Accession Number(s): [id number] cc: CAROLYNE COLLAZO ; Uriel Meade D.O. The [place] [id number] Patient Name: INDU ST MRN: [facility]:[id number] date: 1995 Sex: F Assigned Patient Location: US Current Patient Location: US Accession/Order Number: [id number] Exam Date: 05/23/2023 14:30 Report Date: 05/23/2023 [...] Signed By: 05/23/23 1539 DD/ 1537 TD/TT: Trailer Technician:TERRYHRadiology, Radiologist, MD - 05/23/[address] [address] Ultrasound Report Signed Patient: INDU ST MR#: [id number] : 1995 Acct:[id number] Age/Sex: 27 / F ADM Date: 05/23/23 Loc: US Attending Dr: Uriel Meade D.O. Ordering Physician: Uriel Meade D.O. Date of Service: 05/23/23 Procedure(s): US pelvis w/ transvaginal Accession Number(s): [id number] cc: CAROLYNE COLLAZO ; Uriel Meade D.O. [place] [id number] Patient Name: INDU ST MRN: [id number] date: 1995 Sex: F Assigned Patient Location: US Current Patient Location: US Accession/Order Number: [id number] Exam Date: 05/23/2023 14:30 Report Date: 05/23/2023 [...] Signed By: 05/23/23 1539 DD/ 1537 TD/TT: Trailer Technician: [facility] INFIRMARYHiren HealthcareRadiology Study observation (narrative)NOM HealthcareUS PELVIS W/ TRANSVAGINALOrdered By: Radiologist Radiology on 29-94-1612RCZH Healthcare Work Phone: cytology Cervical or vaginal smear or scraping studyon 91-12-0932QZZC HealthcareXR HYSTEROSALPINGOGRAMon 00-56-3561GM HYSTEROSALPINGOGRAM* * *Final Report* * * DATE [...] nondilated tubes. No spillage. IMPRESSION: Please see RN INTERNSHIP report for assessment of real-time findings. Trailer Technician: ANTONIETA Transcribe Date/Time: Jan 20 2021 1:37P Dictated by : DAYANNA LEROY MD This examination was interpreted and the report reviewed and electronically signed by: DAYANNA LEROY MD on Jan 20 2021 1:45PM EST [id number]_IDCSIACNNormalAvon HospitalPREGNANCY URon 15-88-0194POHVTJICC, QUALNegativeNormalNEGATIVEThe [facility]'S HospitalComment on above:Performed By: #### PREGU #### [facility] [address] [place] [address] Juany KarenCovid-19 PCR ([facility])on 33-42-9394Blcae-19 PCRDETECTEDAbnormalNOT DETECTEDThe [facility]'S HospitalComment on above:Result Comment: This test is not yet approved or cleared by the [place] FDA. When there are no FDA-approved or cleared tests available, and other criteria are met, FDA can make tests available under an emergency access mechanism called an Emergency Use Authorization (EUA). The EUA for this test is supported by the [place] of Health and Human Service's (HHS's) declaration [...] longer be used).Performed By: #### CVDTBH #### [facility] [address] [place], [place] [address] Juany AlessandraSONY Highland District HospitalComment on above: Result Comment: This test is not yet approved or cleared by the [place] FDA. When there are no FDA-approved or cleared tests available, and other criteria are met, FDA can make tests available under an emergency access mechanism called an Emergency Use Authorization (EUA). The EUA for this test is supported by the [employer] [employer] [place] of Health and Human Service?s (HHS?s) declaration [...] consistent with SARS-CoV-2.Performed By: #### CVDTBH #### [facility] [address] [place], [place] [address] Juany Mccarthy Vital Signs Date TimeVital SignValuePerforming XnlrewzyiQmtkobzk51-07-0837 08:51-0400Body mass index (BMI) [Ratio]22.13 kg/m2Dary GOMEZ Work Phone: XcelaeroChristian HospitalHrnuqzhpys72-44-0440 08:51-0400Body ygwbnd87.2 kg Dary GOMEZ Work Phone: NOChristian HospitalEvkzudlsfg75-42-5257 08:51-0400Diastolic blood lgohenec70 mm[Hg]Dary GOMEZ Work Phone: [facility] HospitalImwgystvgk75-00-1971 08:51-0400Systolic blood tyttsyzi684 mm[Hg]Dary GOMEZ Work Phone: [facility] HospitalAhmahdldhb89-42-2012 09:36-0400Body mass index (BMI) [Ratio]22.08 kg/e5ByttjUriel Meade DO Work Phone: 1(040)826-[address] [place], [place] [address]Dzhyyfrykk61-46-1503 09:36-0400Body .05 kgCorey Halina DO Work Phone: 1(032)[facility] [place], [place] [address]Blfcxigpft94-80-9946 09:36-0400Diastolic blood qhaxalcw92 mm[Hg]Uriel Halina DO Work Phone: 1(419)[facility] [place], [place] [address]Vmcygqnogy49-45-7006 09:36-0400Systolic blood mm[Hg]Uriel Halina DO Work Phone: 1(419)[facility] [place], [place] [address]Jjydxfjfix24-85-1942 08:57-0400Body mass index (BMI) [Ratio]20.98 kg/n4IbisvfgmDolores Caldwell [employer] Work Phone: 1(781)[facility] [place], [place] [address]Sfvxphpyel73-34-0832 08:57-0400Body syrstb56.97 kgKrnatan Caldwell [employer] Work Phone: 1(301)[facility] [place], [place] [address]Wzofrdiuvj74-83-4259 08:57-0400Diastolic blood mm[Hg]Dolores Caldwell [employer] Work Phone: 1(984)[address] [place], [place] 2487809-30-2025 08:57-0400Systolic blood gobgqlcv584 mm[Hg]Dolores Caldwell [employer] Work Phone: 1(531)[address] [place], [place] 2487809-16-2025 08:38-0400Body mass index (BMI) [Ratio]21.43 kg/n3Juydf Halina DO Work Phone: 1(609)[address] [place], [place] 2487809-16-2025 08:38-0400Body lpgaaw63.24 kgCorey Halina DO Work Phone: 1(419)[address] [place], [place] 2487809-16-2025 08:38-0400Diastolic blood tiqncsda41 mm[Hg]Uriel Halina DO Work Phone: 1(063)[facility] [place], [place] [address]Ntodxzijab89-98-1818 08:38-0400Systolic blood yjzsoajy061 mm[Hg]Uriel Halina DO Work Phone: 1(241)[address] [place], [place] 2487808-19-2025 09:02-0400Body mass index (BMI) [Ratio]20.47 kg/e4Fwvom Halina DO Work Phone: 1(654)[facility] [place], [place] [address]Bvurhvmnql00-67-3009 09:02-0400Body cunexi95.52 kgCorey Halina DO Work Phone: 1(969)[facility] [place], [place] [address]Qyhgwmeley00-52-1844 09:02-0400Diastolic blood jbwiqvrz88 mm[Hg]Uriel Halina DO Work Phone: 1(263)[facility] [place], [place] [address]Ziwaqtefjo90-73-0858 09:02-0400Systolic blood xfkiqyet092 mm[Hg]Uriel Halina DO Work Phone: 1(157)[address] [place], [place] 2487807-24-2025 08:47-0400Body mass index (BMI) [Ratio]19.69 kg/p0Lxqnb Halina DO Work Phone: 1(527)[address] [place], [place] 2487807-24-2025 08:47-0400Body .34 kgCorey Halina DO Work Phone: 1(991)[address] [place], [place] 2487807-24-2025 08:47-0400Diastolic blood mm[Hg]Uriel Halina DO Work Phone: 1(056)[address] [place], [place] 2487807-24-2025 08:47-0400Systolic blood wvqaucne897 mm[Hg]Uriel Halina DO Work Phone: 1(576)[address] [place], [place] 2487807-09-2025 08:06-0400Body mass index (BMI) [Ratio]19.85 kg/z6MawatMaria T Lambert RD Work Phone: 1(068)[address] [place], [place] 7447207-09-2025 08:06-0400Body erabln12.[address] Work Phone: [phone])[address] [place], [place] 7447207-01-2025 08:02-0400Body .6 cmMario Alberto Ortiz MD Work Phone: 1(438)[address] [place], [place] 7447207-01-2025 08:02-0400Body mass index (BMI) [Ratio]20.14 kg/a0WtkcteibMario Alberto Ortiz MD Work Phone: 1(820)[address] [place], [place] 7447207-01-2025 08:02-0400Body vaadzh78.61 kgMario Alberto Ortiz MD Work Phone: 1(220)017-[address] [place], [place] 4651707-01-2025 08:02-0400Diastolic blood lcycmvuj36 mm[Hg]Mario Alberto Ortiz MD Work Phone: 1(474)821-[address] [place], [place] 4651707-01-2025 08:02-0400Heart rate 87 /minMario Alberto Ortiz MD Work Phone: 1(358)[address]07-01-2025 08:02-0400Systolic blood dfahbzrn055 mm[Hg]Mario Alberto Ortiz MD Work Phone: 1(547)[address]06-24-2025 09:49-0400Body mass index (BMI) [Ratio]19.41 kg/v7Xavpc Halina DO Work Phone: [facility] HospitalQxmmhfscgb99-48-8987 09:49-0400Body .55 kgCorey Halina DO Work Phone: [facility] HospitalPpquwlrdan55-36-9931 09:49-0400Diastolic blood hyzqurnm57 mm[Hg]Uriel Halina DO Work Phone: [facility] HospitalNwqljuhgwt66-58-9300 09:49-0400Systolic blood uvtxhhpr341 mm[Hg]Uriel Halina DO Work Phone: [facility] HospitalViurpnuozv92-29-2055 15:53-0400Body temperature 98.4 [degF]Mayra Dobson MD Work Phone: 1(343)693-[facility]06-13-2025 15:53-0400 Diastolic blood mm[Hg]Mayra Dobson MD Work Phone: [facility]06-13-2025 15:53-0400 Heart rate77 /Grace Dobson MD Work Phone: [facility]06-13-2025 15:53-0400 Respiratory rate18 /Grace Dobson MD Work Phone: 1(216)844-[address] [place], [place] 5806706-13-2025 15:53-0400 SaO2% (BldA) [Mass fraction]99 %Mayra Dobson MD Work Phone: 1(330)383-[address] [place], [place] 5806706-13-2025 15:53-0400 Systolic blood zzlnngta576 mm[Hg]Mayra Dobson MD Work Phone: [phone])032-[address] [place], [place] 5806706-12-2025 23:24-0400 Body aialbgibjya74Ybickrzf Brenner MD Work Phone: 1(774)715-[address] [place], [place] 5806706-12-2025 23:23-0400 Body kglhukvotsy73.[address] Rita's Medical CenterComment on above:Performed By: #### [id number] #### CARI Mark ([id number]) [facility] ([facility]) [address] [place], [place] [address]-12-2025 22:08-0400Body inmcqb740.6 cmMayra Dobson MD Work Phone: 1(928)110-[address] [place], [place] 5806706-12-2025 22:08-0400 Body mass index (BMI) [Ratio]18.72 kg/b0BaggwghgMayra Dobson MD Work Phone: 1(911)273-[address] [place], [place] 5806706-12-2025 22:08-0400 Body .62 kgMayra Dobson MD Work Phone: 1(960)338-[address] [place], [place] 5806706-11-2025 11:38-0400 Diastolic blood yyjjqwsg24 mm[Hg]Milan Lerner DO Work Phone: [facility]06-11-2025 11:38-0400 Heart rate84 /minMilan Lerner DO Work Phone: [facility]06-11-2025 11:38-0400 Respiratory rate16 /minMilan Lerner DO Work Phone: [facility]06-11-2025 11:38-0400 SaO2% (BldA) [Mass fraction]100 %Milan Lerner DO Work Phone: [facility]06-11-2025 11:38-0400 Systolic blood xsnlmcar653 mm[Hg]Milan Lerner DO Work Phone: 1(863)[address]06-11-2025 09:25-0400 Body covymv634.6 cmCman Lerner DO Work Phone: 1(604)481-[address] [place], [place] 5401606-11-2025 09:25-0400 Body mass index (BMI) [Ratio]18.72 kg/r2Nelztdbgerson Lerner DO Work Phone: 1([phone] [place], [place] 5401606-11-2025 09:25-0400 Body frgqstpozbi91.3 [degF]Milan Lerner DO Work Phone: 1(586)331325[address] [place], [place] 5401606-11-2025 09:25-0400 Body zlpblu06.62 kgCamgerson Lerner DO Work Phone: [facility]05-28-2025 14:49-0400 Body mass index (BMI) [Ratio]19.17 kg/o0Wmici Halina DO Work Phone: 1(840)096-[facility] SpringsHannibal Regional HospitalRzrpdjhjaw87-69-2178 14:49-0400Body evacnh49.89 kgCorey Halina DO Work Phone: [facility] HospitalEmdlmixqlv02-85-5675 14:49-0400Diastolic blood ryfyzmut76 mm[Hg]Uriel Halina DO Work Phone: [facility] HospitalRtygacgryo61-64-4359 14:49-0400Systolic blood cymvaocj716 mm[Hg]Uriel Halina DO Work Phone: [facility] HospitalQknmoxvvji72-72-8873 14:54-0400Body mass index (BMI) [Ratio]18.4 kg/g0Tvguh Halina DO Work Phone: [facility] HospitalBlgopishmu60-03-5055 14:54-0400Body katqot68.71 kgCorey Halina DO Work Phone: 1(388)207-[facility] HospitalUpptxknbzu85-30-7909 14:54-0400Diastolic blood dzfnjgep96 mm[Hg]Uriel Halnia DO Work Phone: NOChristian HospitalTnzjimkluy38-90-7530 14:54-0400Systolic blood lnqtfoap874 mm[Hg]Uriel Halina DO Work Phone: noChristian HospitalSykfrspsgb43-46-5173 11:27-0400Hourly Rounding Ronobir KAI [address] [place], [place] 1080504-20-2025 11:27-0400 Promise to ReturnRonobir KAI [address]04-20-2025 10:00-0400 Hourly RoundingRonobir KAI [address] [place], [place] 1080504-20-2025 10:00-0400 Promise to ReturnRonobir KAI [address] [place], [place] 1080504-20-2025 09:20-0400 Hourly RoundingRonobir KIA [address] [place], [place] 1080504-20-2025 09:20-0400 Promise to ReturnRonobir KAI [address] [place], [place] 1080504-20-2025 07:44-0400Heart rate75 /minRonobir KAI [address] [place], [place] 1080504-20-2025 07:44-0581KlU1% (BldA) [Mass fraction]99 %Ronobir KAI [address] [place], [place] 1080504-20-2025 07:43-0400 Diastolic blood navjfant91 mm[Hg]Ronobir KAI [address] [place], [place] 1080504-20-2025 07:43-0400Mean blood upfozude14 mm[Hg]Ronobir KAI [address] [place], [place] 1080504-20-2025 07:43-0400 Systolic blood rnxmahfp385 mm[Hg]Ronobir KAI [address]04-20-2025 07:43-0400Body wnzhulupmwz01.42 [degF]Ronobir KAI [address] [place], [place] 1080504-19-2025 19:58-0400Heart rate79 /minRonobir KAI [address] [place], [place] 1080504-19-2025 19:58-6099FsT1% (BldA) [Mass fraction]97 %Ronobir KAI [address] [place], [place] 5134504-19-2025 19:57-0400 Diastolic blood tdakmkaw28 mm[Hg]Ronobir KAI [address] [place], [place] 5134504-19-2025 19:57-0400Mean blood pysbuhry57 mm[Hg]Ronobir KAI [address] [place], [place] 1080504-19-2025 19:57-0400 Systolic blood hobqqiph286 mm[Hg]Ronobir KAI [address] [place], [place] 1080504-19-2025 19:56-0400Body tsndlonrnse37.6 [degF]Ronobir KAI [address] [place], [place] 5134504-19-2025 19:00-0400 Respiratory rate18 /minRonobir KAI [address] [place], [place] 1080504-19-2025 17:19-0400Heart rate80 /minRonobir KAI [address] [place], [place] 1080504-19-2025 17:19-8813GiN4% (BldA) [Mass fraction]97 %Ronobir KAI [address] [place], [place] 1080504-19-2025 17:17-0400Blood Pressure LocationRonobir KAI [address] [place], [place] 1080504-19-2025 17:17-0400 Diastolic blood iaewuitk88 mm[Hg]Ronobir KAI [address] [place], [place] 1080504-19-2025 17:17-0400Mean blood gqmbupyi60 mm[Hg]Ronobir KAI [address] [place], [place] 1080504-19-2025 17:17-0400 Systolic blood arhqaocz411 mm[Hg]Ronobir KAI [address]04-19-2025 17:17-0400Body ggzchirdzob48.78 [degF]Ronobir KAI [address] [place], [place] 1080504-19-2025 00:02-0400Body evedxdopmer85.6 [degF]Ronobir KAI [address] [place], [place] 5134504-19-2025 00:02-0400 Respiratory rate16 /minRonobir KAI [address] [place], [place] 5134504-18-2025 16:30-0400 Respiratory rate18 /minRonobir KAI [address]04-18-2025 06:00-0400Mean blood lokksgrd83 mm[Hg]Ronobir KAI [address] [place], [place] 1080504-18-2025 02:49-0400Body moxazudpomb72.24 [degF]Ronobir KAI [address] [place], [place] 1080504-18-2025 02:49-0400Mean blood sxhfltec45 mm[Hg]Ronobir KAI [address] [place], [place] 1080504-17-2025 22:25-0400Heart rate81 /minRonobir KAI [address] [place], [place] 1080504-17-2025 18:14-0400Mean blood zatsqylr42 mm[Hg]Ronobir KAI [facility]04-17-2025 12:11-0400 Respiratory rate18 /minRonobir KAI [facility]04-17-2025 12:04-0400 Respiratory rate24 /minRonobir KAI [facility]04-17-2025 11:32-0400Heart rate77 /minRonobir KAI [facility]04-17-2025 10:48-0400Heart rate81 /minRonobir KAI [facility]02-10-2025 14:48-0500Body dkjmil427.6 Satish Collazo MD Work Phone: [facility] HospitalEtaexwblkk35-61-6555 14:48-0500Body mass index (BMI) [Ratio]17.98 kg/h1FrbxrCarolyne Collazo MD Work Phone: [facility] HospitalNjzcwxcerq89-44-8728 14:48-0500Body temperature 98.4 [degF]Carolyne Collazo MD Work Phone: [facility] HospitalDzrqjeuwbe48-14-7217 14:48-0500Body cquuts05.53 kgCarolyne Collazo MD Work Phone: [facility] HospitalKyhigezwwl19-41-8778 14:48-0500Diastolic blood ibupmzqx28 mm[Hg]Carolyne Collazo MD Work Phone: [facility] HospitalDuxhueymys65-36-3318 14:48-0500Heart rate78 /min Carolyne Collazo MD Work Phone: [facility] HospitalIocgagsrjd68-09-4170 14:48-2640LyC7% (BldA) [Mass fraction]98 %Carolyne Collazo MD Work Phone: [facility] HospitalExkhwoookq55-70-5569 14:48-0500Systolic blood vvvaskdu707 mm[Hg]Carolyne Collazo MD Work Phone: noms Cnzocbnfzf01-47-1568 08:43-0400Body xpopsy140.6 cmCorey Halina DO Work Phone: [facility] HospitalGpbabchwha80-15-9666 08:43-0400Body mass index (BMI) [Ratio]17.59 kg/i3Rwhkg Halina DO Work Phone: [facility] HospitalVzesenxcmd46-97-0730 08:43-0400Body prrert98.44 kgCorevikram Palomareso DO Work Phone: [facility] HospitalQhgewpxeso64-26-2763 08:43-0400Diastolic blood mm[Hg]Uriel Palomareso DO Work Phone: [facility] HospitalAavurhmkrd42-19-1332 08:43-0400Systolic blood bpaoyjun517 mm[Hg]Uriel Palomareso DO Work Phone: [facility] HospitalZetbvnwaam70-94-8683 10:05-0400Blood Pressure LocationModarlyn Knutson [facility]08-12-2024 10:05-0400 Diastolic blood fgzsvahc90 mm[Hg]Alex Knutson [facility]08-12-2024 10:05-0400Heart rate66 /minAlex Knutson [facility]08-12-2024 10:05-0400Mean blood qribffsq16 mm[Hg]Alex Knutson [facility]08-12-2024 10:05-0400 Respiratory rate19 /minMohamad Zenia [facility]08-12-2024 10:05-8906TcL7% (BldA) [Mass fraction]97 %Alex Knutson [facility]08-12-2024 10:05-0400 Systolic blood nuckdayx086 mm[Hg]Mohamad Mouchli [facility]08-12-2024 09:55-0400Blood Pressure LocationMohamad Mouchli [facility]08-12-2024 09:55-0400 Diastolic blood ilqkljbn26 mm[Hg]Mohamad Mouchli [address] [place], [place] 5002708-12-2024 09:55-0400Heart rate57 /minMohamad Mouchli [address] [place], [place] 5002708-12-2024 09:55-0400Mean blood zqqfizje75 mm[Hg]Mohamad Mouchli [address] [place], [place] 5002708-12-2024 09:55-0400 Respiratory rate19 /minMohamad Mouchli [address] [place], [place] 5002708-12-2024 09:55-2406IyK8% (BldA) [Mass fraction]100 %Mohamad Mouchli [address] [place], [place] 5002708-12-2024 09:55-0400 Systolic blood erresqad594 mm[Hg]Mohamad Mouchli [address] [place], [place] 5002708-12-2024 09:50-0400Blood Pressure LocationMohamad Mouchli [address] [place], [place] 5002708-12-2024 09:50-0400 Diastolic blood iozcpelj00 mm[Hg]Mohamad Mouchli [address] [place], [place] 9545108-12-2024 09:50-0400Heart rate90 /minMohamad Mouchli [address] [place], [place] 5002708-12-2024 09:50-0400Mean blood zhkxoepv60 mm[Hg]Mohamad Mouchli [address] [place], [place] 5002708-12-2024 09:50-0400 Respiratory rate13 /minMohamad Mouchli [address] [place], [place] 5002708-12-2024 09:50-6486CkN7% (BldA) [Mass fraction]100 %Mohamad Mouchli [address] [place], [place] 7747008-12-2024 09:50-0400 Systolic blood oqatgkkc265 mm[Hg]Mohamad Mouchli [address] [place], [place] 7747008-12-2024 09:41-0400Body wnuashxeufh62.06 [degF]Mohamad Mouchli [address] [place], [place] 7747008-12-2024 09:30-0400 Respiratory rate10 /minMohamad Mouchli [address] [place], [place] 7747008-12-2024 09:25-0400 Respiratory rate10 /minMohamad Mouchli [address] [place], [place] 7747008-12-2024 09:24-0400 Respiratory rate10 /minMohamad Mouchli [address] [place], [place] 7747008-12-2024 07:13-0400Body apptrbmrszc55.42 [degF]Mohamad Mouchli [address] [place], [place] 7747007-11-2024 14:52-0400Blood Pressure LocationMohamad Mouchli 818-1005Fryrmv-Hjtsw[address] [place], [place] 3772907-11-2024 14:52-0400Diastolic blood mm[Hg]Mohamad Mouchli 706-4336Jbxffz-Qzfcn[address] [place], [place] 3772907-11-2024 14:52-0400Heart rate78 /minMohamad Mouchli 159-0047Otkqwq-Mtrmz[address] [place], [place] 3772907-11-2024 14:52-0400Respiratory rate16 /minMohamad Mouchli 909-9748[facility]wllkd-[facility]07-11-2024 14:52-0400Systolic blood fozsvvyv854 mm[Hg]Alex Zenia 517-1721[facility]q-[facility]05-17-2024 18:58-0400Body mtywwvzjgzn09.49 [degF]Gwen Danielson MD Work Phone: 1(728)170[facility]87[facility]05-17-2024 18:58-0400 Diastolic blood rcgqhokg39 mm[Hg]Gwen Danielson MD Work Phone: [phone]05-17-2024 18:58-0400 Heart rate52 /Jacqueline Danielson MD Work Phone: [phone]05-17-2024 18:58-0400 Respiratory rate18 /minGwen Danielson MD Work Phone: [phone]24[facility]05-17-2024 18:58-0400 SaO2% (BldA) [Mass fraction]98 %Gwen Danielson MD Work Phone: [phone]43[facility]05-17-2024 18:58-0400 Systolic blood rqfrxege582 mm[Hg]Gwen Danielson MD Work Phone: [phone]40[facility]05-17-2024 13:40-0400 Body eipcvm772.6 cmJoleonardo Danielson MD Work Phone: [phone]75[facility]05-17-2024 13:40-0400 Body mass index (BMI) [Ratio]19.05 kg/h0ElulyGwen Danielson MD Work Phone: [phone]05-17-2024 13:40-0400 Body .52 kgJoleonardo Danielson MD Work Phone: [phone] Encounters Encounter DateEncounter [facility] ProviderFacilityStart: 01-13-2025 End: 90-28-6497Ggisrd flowsheetCorey Halina DO Work Phone: [facility]YNStart: 01-13-2025 End: 72-77-2263Lcyudp flowsheetCorey Halina DO Work Phone: [facility]YNStart: 01-13-2025 End: 85-20-6744jwsjwbjjzrQWCTG FAZIONot AvailableStart: 01-12-2025 End: 92-54-7631zaijzoznmnKgtpj R FAZIOFacility:[facility]MCStart: 01-08-2025 End: 87-60-3057qdtiqflrudJhpof R FAZIOFacility:FTMCStart: 01-05-2025 End: 56-27-7662lnenbdcmicAspba R FAZIOFacility:FTMCStart: 01-01-2025 End: 51-06-5870utogqsmdrpWdxni R FAZIOFacility:FTMCStart: 12-31-2024 End: 44-84-2389Mgzwzacv flow Primo Wilhelm PA Work Phone: N[facility] Arreaga OBGYNComment on above:Third trimester ([facility]); 33 weeks gestation of ([facility])Start: 12-31-2024 End: 95-37-0506xofmtfrdcxAFA RAMEYNot AvailableStart: 12-29-2024 End: 22-27-4621klcgvddecsSpucz R FAZIOFacility:FTMCStart: 12-25-2024 End: 43-25-3017klzlcjhqskIovac R FAZIOFacility:FTMCStart: 12-22-2024 End: 58-24-2163ojzsiiugoqVzmek R FAZIOFacility:FTMCStart: 12-18-2024 End: 09-25-1596scnbvvczknGvyli R FAZIOFacility:FTMCStart: 12-16-2024 End: 38-33-1754Bhsrrf flowsheetCorey Halina DO Work Phone: [facility]reaga OBGYNStart: 12-16-2024 End: 09-64-6987Wotjzw flowsheetCorey Halina DO Work Phone: [facility]reaga OBGYNStart: 12-16-2024 End: 96-50-9357Burejmkf flow sheetCorevikram Meade DO Work Phone: N[facility] Arreaga OBGYNComment on above:Third trimester ([facility] 31 weeks gestation of ([facility]); Encounter for in vitro fertilization; Hemorrhoids, unspecified hemorrhoid typeStart: 12-16-2024 End: 06-82-6703cmtitnjratCPIOC FAZIONot AvailableStart: 12-15-2024 End: 08-15-3826Lbulatasr encounterSally Fevikram RNMaternal- Medicine at [facility]ertart: 12-15-2024 End: 51-47-4537ksizsmtwfiNoqor R FAZIOFacility:FTMCStart: 12-11-2024 End: 10-77-5578segbbbvuuqUhcyh R FAZIOFacility:FTMCStart: 12-09-2024 End: 43-81-0378Jkkxbz outpatient visit 25 minutesMario Alberto Ortiz MD Work Phone: [phone]-Zzbda Medicine at [facility] Comment on above:30 weeks gestation of (Primary Dx)Start: 12-09-2024 End: 40-97-3707jsoznykvqcBKOGRWRJ P DOCHEVAProMedica Children's Hospital for Rehabilitationtart: 12-08-2024 End: 02-81-8533bgtuhxwrcwYyrdu D KastenFacility:FTMCStart: 12-05-2024 End: 75-99-5052BdeuerXiuieqzy P Docheva MD Work Phone: [phone]-Djqfe Medicine at [facility] Comment on above:16 weeks gestation of ; Hyperemesis of pregnancyStart: 12-04-2024 End: 77-62-6440XmaodrRonald Godfrey [place] [facility] Certified Nurse Herb Doctor - [facility] ClintonComment on above: renal anomaly, single gestation (Primary Dx); Marijuana use during ; resulting from in vitro fertilization in second trimester; 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Start: 12-02-2024 End: 28-76-9325Gysidc Veena Caldwell [employer] Work Phone: [facility] Kennedy OBGYNStart: 12-02-2024 End: 55-79-0428Wxgruq ravenAnthony Caldwell [employer] Work Phone: [facility] Kennedy OBGYNStart: 12-02-2024 End: 99-73-2929Anofuvbt flow sheetDolores Caldwell [employer] Work Phone: NOMS Whitley OBGYNComment on above:Anemia, unspecified type (Primary Dx); Third trimester ([facility]); 29 weeks gestation of ([facility]); Bipolar 1 disorder (HCC); PTSD (post-traumatic stress disorder)Start: 12-02-2024 End: 19-90-8465idzjuylbeoKSOOTEAD EBERLYNot AvailableStart: 12-01-2024 End: 05-22-4052tfwyxtihetQpmmf R FAZIOFacility:FTMCStart: 83-04-0728rhvmxwqkhi Uriel R FAZIOFacility:FTMCStart: 11-24-2024 End: 89-94-5506ntdzljgsbvJtolb R FAZIOFacility:FTMCStart: 11-18-2024 End: 78-21-5764Xepnit flowsheetCorey Halina DO Work Phone: [facility] OBGYNStart: 11-18-2024 End: 19-86-5180Getvuz flowsheetCorey Halina DO Work Phone: [facility] OBGYNStart: 11-18-2024 End: 56-11-2469Xmwxebrk flow sheetCorey Halina DO Work Phone: N[facility] OBGYNComment on above:27 weeks gestation of ([facility]); Second trimester ([facility]); Hyperemesis of ([facility]); resulting from in vitro fertilization in second trimester ([facility]); Breech presentation, single or unspecified fetus ([facility])Start: 11-18-2024 End: 59-22-6288xvxiuvuptpAVZLT FAZIONot AvailableStart: 11-17-2024 End: 74-92-7309ustqwutailTqyld R FAZIOFacility:FTMCStart: 11-07-2024 End: 23-51-3406Kncido outpatient visit 25 minutesMario Alberto Ortiz MD Work Phone: [phone]-Usnqs Medicine at [facility] Comment on above:16 weeks gestation of ; Hyperemesis of pregnancyStart: 11-07-2024 End: 71-00-3589Xjjipw Cole Maya CINDYMaternal- Medicine at [facility] HospitalComment on above:Hyperemesis of (Primary Dx); renal anomaly, single gestation; Marijuana use during ; 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; Nausea and vomiting during ; Poor weight gain of , second trimester; In vitro fertilization; 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, antepartumStart: 11-06-2024 End: 41-15-8137nluieqcbbwLNPORSSMercy Hospital Ozark Ambulatory PPGStart: 10-21-2024 End: 39-47-2449Cyackh flowsheetCorey Halina DO Work Phone: [facility] OBGYNStart: 10-21-2024 End: 89-74-1923Vipygr flowsheetCorey Halina DO Work Phone: noms [facility] OBGYNStart: 10-21-2024 End: 98-13-5383Msbrkzem flow sheetCorey Halina DO Work Phone: noMS Kennedy OBGYNComment on above:23 weeks gestation of ([facility]); Second trimester ([facility]); Hyperemesis of ([facility]); resulting from in vitro fertilization in second trimester ([facility]); Diabetes mellitus screeningStart: 10-21-2024 End: 73-09-1906hrspprmiuhXNPIF FAZIONot AvailableStart: 10-07-2024 End: 10-96-7455Eiueus-up encounterMario Alberto Ortiz MD Work Phone: [phone]-Kujtp Medicine at [facility] Comment on above:MR abdomen without contrastStart: 10-03-2024 End: 92-31-5756oqetoripwqZTHYKFUP P DOCHEVAProMedica Amsterdam HospitalStart: 10-02-2024 End: 75-29-8392Burqzv outpatient visit 15 minutesKrupa Jones MD Work Phone: [phone]-Najfe Medicine at [facility] Comment on above:Hyperemesis of (Primary Dx); renal anomaly, single gestation; Marijuana use during ; 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Start: 10-02-2024 End: 76-91-7796ksglfyygspYZZU E SIMMONDFairmont Rehabilitation and Wellness Centersarah Children's Hospital for Rehabilitationtart: 10-02-2024 End: 15-40-6743Enpydmijd encounterLexi Maya RNMaternal- Medicine at [facility] HospitalStart: 10-02-2024 End: 46-32-1667aoqfidqkmlEZIMW [facility] Ambulatory PPGStart: 09-25-2024 End: 36-52-6408Ntrbyu flowsheetCorey Halina DO Work Phone: NOMS BCP OBStart: 09-25-2024 End: 60-13-0771Tlyxgw flowsheetCorey Halina DO Work Phone: NOMS BCP OBStart: 09-25-2024 End: 91-40-7526Xawnrrkm flow sheetCorey Ahlina DO Work Phone: NOMS BCP OBComment on above:Second trimester ([facility]); 20 weeks gestation of ([facility])Start: 09-25-2024 End: 12-14-6741xiuhmxpxbvGIAHB FAZIONot AvailableStart: 09-17-2024 End: 52-45-8753Ikjnaj Logan Ortiz MD Work Phone: [phone]-Juypu Medicine at [facility] Comment on above:Hyperemesis of (Primary Dx); Gastroesophageal reflux disease, unspecified whether esophagitis presentStart: 09-15-2024 End: 37-94-8553mncfwsnshjIsbMelisa Costa MD Work Phone: [phone]-Lmxdi Medicine at [facility] Comment on above:Nausea and vomiting during [O21.9] (Primary Dx)Start: 09-10-2024 End: 34-84-2530byrlyeofhrNIXGPWayne HealthCare Main Campustart: 09-09-2024 End: 09-99-9025Wxmjbi-up Ignacia Costa MD Work Phone: [phone]-Vbspo Medicine at [facility] Comment on above:Comprehensive metabolic panel, Magnesium, CBC without diff, Additional followed-up results: 3Start: 09-04-2024 End: 34-49-4623arqayxxqizSQQDFPNB P DOCHEVABarnesville Hospitaltart: 09-02-2024 End: 16-72-3867Mudtdz consultation new/estab patient 79 Alvaro Ortiz MD Work Phone: [phone]-Tpzrn Medicine at [facility] Comment on above:16 weeks gestation of (Primary Dx); resulting from in vitro fertilization in second trimester; Hyperemesis of ; Cyclical vomiting with nausea; Marijuana use during ; renal anomaly, single gestation; 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; Bipolar disease 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 trimester ([facility]); Anxiety during pregnancyStart: 09-02-2024 End: 92-67-1697OploioRonald Maya Maternal- Medicine at [facility] HospitalComment on above:Hyperemesis of (Primary Dx); Poor weight gain of , second trimester; In vitro fertilization; 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, antepartum; Abnormal ultrasound of kidneyStart: 08-26-2024 End: 94-23-2355Ljlnls flowsheetCorey Halina DO Work Phone: noms BCP OBStart: 08-26-2024 End: 35-98-4184Pxfqzs flowsheetCorey Halina DO Work Phone: noms BCP OBStart: 08-26-2024 End: 67-37-2897Pmfmfxjah Result EncounterGeneric External Data ProviderNOMS External Department UnsolicitedStart: 08-26-2024 End: 67-46-3021Mufszxey Result EncounterCorey Halina DO Work Phone: noms External Department UnsolicitedStart: 08-26-2024 End: 05-43-0056Bsaxgpc encounter procedureCorey Halina DO Work Phone: noms HealthcareStart: 08-26-2024 End: 70-54-9627Lfvsqukh preventive med est patient 18-39 yrsCorey Halina DO Work Phone: noms BCP OBComment on above:Well woman exam with routine gynecological exam; STD exposure; Second trimester ([facility]); 15 weeks gestation of ([facility]); Screening, , for anatomic survey ([facility])Start: 08-26-2024 End: 83-78-6514qimdqqscixPKMJQ FAZIONot AvailableStart: 08-18-2024 End: 33-35-9108Mpvma Darshan Ortiz MD Work Phone: [phone]-Rjkus Medicine at [facility] Start: 08-15-2024 End: 97-12-4836Ybzniswzeo and management of inpatientJUSTIN A [facility] Systemtart: 08-14-2024 End: 20-54-6199Apuhuzmkw department patient visitMARIELLE A [facility] Centertart: 08-14-2024 End: 39-48-7126Butvygsmbb and management of inpatientMayra Dobson MD Work Phone: uh [facility] 4Comment on above:15 weeks gestation of ([facility]) (Primary Dx); Nausea and vomiting, unspecified vomiting type; Chest pain, unspecified typeStart: 08-14-2024 End: 29-32-9734zczhlciaysZgeuu D KastenFacility:FTMCStart: 15-51-6686Xyoibqoby department patient visitBk Ruvalcaba ShaanFacility:FTMCStart: 08-14-2024 End: 64-32-7226PcrogfllrarWbsra D Lucina [facility] Start: 08-13-2024 End: 09-74-3196Qiigtafnzs hospital visit by physicianSam 2e Cr Nonv1 Ecg [facility] HospitalComment on above:ArrivedStart: 08-13-2024 End: 67-75-5000Dqgjhggba department patient visitCAMGERSON Peace [facility] Centertart: 08-13-2024 End: 41-40-7853Zvwuvmbbr department patient visitCamsanchezcatalina [facility] DO Work Phone: [facility] Emergency MedicineComment on above:Nausea and vomiting, unspecified vomiting type (Primary Dx)Start: 07-30-2024 End: 38-95-0439Setaje flowsheetCorey Halina DO Work Phone: noms BCP OBStart: 07-30-2024 End: 87-45-6864Ppbwmk flowsheetCorey Halina DO Work Phone: noms BCP OBStart: 07-30-2024 End: 88-54-2724Nrrrihhn flow sheetCorey Halina DO Work Phone: noms BCP OBComment on above:First trimester ; 11 weeks gestation of ; Nausea and vomiting, unspecified vomiting type; Hyperemesis of ; Encounter for in vitro fertilization; Anxiety, generalized (CMS/HCC)Start: 07-30-2024 End: 16-81-1231kdxazfptjeLMJEP FAZIONot AvailableStart: 07-17-2024 End: 79-00-9619oigyqnezcgAKZZE CROSBYNot AvailableStart: 07-17-2024 End: 88-67-1480Enppcy outpatient visit 5 minutesNoms Bcp Ob Halina NurseNOMS BCP OBComment on above:GA: 88g9iRpnid: 83-87-2880mrrkkguheaPltqci Kiltz Facility:[facility]art: 07-10-2024 End: 79-09-6095Ttrdgdlic Result EncounterGeneric External Data ProviderNOMS External Department UnsolicitedStart: 07-10-2024 End: 73-72-6838Hmptwtsnp Result EncounterGeneric External Data ProviderNOMS External Department UnsolicitedStart: 07-08-2024 End: 52-97-2924zarnxcokqiULHKY CROSBYNot AvailableStart: 06-30-2024 End: 13-06-5560megrudylapOBPUL CROSBYNot AvailableStart: 06-24-2024 End: 70-28-7442Dgowve outpatient visit 15 minutesCorey Halina DO Work Phone: [facility] OBComment on above:Hospital discharge follow-up; Hyperemesis of ; Hemorrhage in early , antepartum; Subchorionic hematoma in first trimester, single or unspecified fetusStart: 06-24-2024 End: 39-85-8974eokqbumtpeRWUJJ FAZIONot AvailableStart: 06-19-2024 End: 10-49-9415nmcggapkokTS Ronradha QUINNFacility:FTMCStart: 06-19-2024 Emergency department patient visitTim ThomasFacility:FTMCStart: 06-19-2024 End: 84-61-0724XeeyzznszjvPakbpko R MALLICK [facility] Start: 06-16-2024 End: 03-46-4892yxdnxtbbfjCOHDQK J KILTZFacility:FTMCStart: 06-16-2024 End: 12-50-3896Riudyzo encounter procedureJADE Aleman [facility] Start: 06-13-2024 End: 02-85-9951yqlxptnqrjNA JADE LEDBETTERFacility:FTMCStart: 06-13-2024 End: 96-05-8900Tfokbqy encounter procedureJADE Aleman [facility] Start: 06-07-2024 End: 71-39-2179uitflzmjqgCV ROBERT J KILTZFacility:FTMCStart: 06-07-2024 End: 34-82-7672Izqncgu encounter procedureROBMART Aleman [facility] Start: 06-05-2024 End: 93-44-0212swyjiphpqkQRPRXW J KILTZFacility:FTMCStart: 06-05-2024 End: 02-16-7608Ooolaou encounter procedureROBMART Aleman [facility] Start: 05-31-2024 End: 65-72-2201gzrfacebqqCYEWWM J KILTZFacility:FTMCStart: 05-31-2024 End: 14-83-5039Cvqgrhw encounter procedureJADE Aleman [facility] Start: 05-20-2024 End: 88-41-9740mcivbmzdweXLDSHI J KILTZFacility:FTMCStart: 05-20-2024 End: 65-27-2026Ytnmudf encounter procedureROBMART Aleman [facility] Start: 05-13-2024 End: 94-47-0298inspypmtsxQR ROBERT J KILTZFacility:FTMCStart: 05-13-2024 End: 85-66-3573Halgeyx encounter procedureROBMART Aleman [facility] Start: 05-05-2024 End: 46-29-2175prfyyamwqlLJ ROBERT J KILTZFacility:FTMCStart: 05-05-2024 End: 59-11-3194Iublaqn encounter procedureROBMART Aleman [facility] Start: 04-30-2024 End: 82-20-8831wkmmulkrppYZBrant Beaulieucility:FTMCStart: 04-30-2024 End: 34-95-7462Hfzrgbq encounter procedureROBMART Love [facility] Start: 04-18-2024 End: 81-43-4097Xamwujzbz Result EncounterGeneric External Data ProviderNOMS External Department UnsolicitedStart: 04-18-2024 End: 12-72-7690Dtfwtmvtx Result EncounterGeneric External Data ProviderNOMS External Department UnsolicitedStart: 04-16-2024 End: 40-39-2999Qtsmgdimq Result EncounterGeneric External Data ProviderNOMS External Department UnsolicitedStart: 04-16-2024 End: 60-91-5432Qgkvoogyq Result EncounterGeneric External Data ProviderNOMS External Department UnsolicitedStart: 04-14-2024 End: 22-33-9414Fvljjv outpatient visit 25 minutesPeTan MD Work Phone: noms [place] FMComment on above:Bipolar affective disorder, currently manic, moderate (CMS/HCC) (Primary Dx)Start: 04-14-2024 End: 51-55-1126ttpcirdajjGLREV D CROSBYNot AvailableStart: 04-14-2024 End: 09-26-0594Eewpnpaco Result EncounterGeneric External Data ProviderNOMS External Department UnsolicitedStart: 04-14-2024 End: 23-97-1831Shvbckriy Result EncounterGeneric External Data ProviderNOMS External Department UnsolicitedStart: 04-08-2024 End: 47-39-9916bnwqvgnjibQY JADE LEDBETTERFacility:FTMCStart: 04-08-2024 End: 86-31-2069Vmqujyq encounter procedureROBMART LEDBETTERSub[facility] Start: 04-08-2024 End: 98-27-4430Btpwoaynq Result EncounterGeneric External Data ProviderNOMS External Department UnsolicitedStart: 04-08-2024 End: 66-87-2932Lhcjlktzz Result EncounterGeneric External Data ProviderNOMS External Department UnsolicitedStart: 03-14-2024 End: 41-01-9042Uumfpnony Result EncounterGeneric External Data ProviderNOMS External Department UnsolicitedStart: 03-14-2024 End: 94-85-7760Gmjzamtpw Result EncounterGeneric External Data ProviderNOMS External Department UnsolicitedStart: 03-12-2024 End: 30-74-1148Aqza/qhp telephone evaluation 5-10 minCorey Halina DO Work Phone: noms BCP OBComment on above:Fallopian tube disorder; Anovulation; Female infertilityStart: 02-18-2024 End: 69-14-3818vpcjxbltouVgvtl Kobi CollazoFacility:FTMCStart: 02-18-2024 End: 49-69-1295Xenkpdc encounter procedurePeter Kobi Collazo [facility] Start: 02-18-2024 End: 61-30-7908Onhqapmve Result EncounterPeter Kobi Collazo MD Work Phone: noms External Department UnsolicitedStart: 02-18-2024 End: 23-97-4024Xxcntgkea Result EncounterPeter Kobi Collazo MD Work Phone: noms External Department UnsolicitedStart: 02-15-2024 End: 54-14-5156Pknzvu outpatient visit 15 minutesCarol GOMEZ Work Phone: noms [place] FMComment on above:Myalgia (Primary Dx)Start: 02-15-2024 End: 32-91-9930bozmxyvxdpGLODXAW J SOMMERSNot AvailableStart: 02-13-2024 End: 15-28-9550Cgkuqxsol Result EncounterGeneric External Data ProviderNOMS External Department UnsolicitedStart: 02-13-2024 End: 96-70-1407Eknnbknid Result EncounterGeneric External Data ProviderNOMS External Department UnsolicitedStart: 01-16-2024 End: 23-81-4163Cgvr/qhp telephone evaluation 5-10 minCorey Halina DO Work Phone: noms BCP OBComment on above:Female infertility; Vaginal odorStart: 12-24-2023 End: 01-09-2678Wgxyxriwf Result EncounterGeneric External Data ProviderNOMS External Department UnsolicitedStart: 12-24-2023 End: 10-05-6547Mrusknycw Result EncounterGeneric External Data ProviderNOMS External Department UnsolicitedStart: 12-03-2023 End: 16-76-7056Mvhvzh flowsheetCorey Halina DO Work Phone: noms BCP OBStart: 12-03-2023 End: 81-41-7785Dvtyko flowsheetCorey Halina DO Work Phone: noMS BCP OBStart: 12-03-2023 End: 51-58-1930Ptbrrp outpatient visit 15 minutesCorey Halina DO Work Phone: noms BCP OBComment on above:Fallopian tube disorder (Primary Dx)Start: 11-08-2023 End: 08-96-1253Ixlaexnyf Result EncounterCorey Halina DO Work Phone: noms External Department UnsolicitedStart: 11-08-2023 End: 28-75-0932Szopbxnfb Result EncounterCorey Halina DO Work Phone: noms External Department UnsolicitedStart: 10-15-2023 End: 83-07-3823winwkwnugpKttbcmc A. MouchliFacility:FTMCStart: 10-15-2023 End: 50-99-7697Bcyiqtv encounter procedureModarlyn Knutson [facility] Start: 09-13-2023 End: 88-60-0676avvtdnynjePlegjaw A. MouchhilarioFacility:[facility] DHStart: 09-13-2023 End: 21-79-6989Ufldjoa encounter procedureModarlyn Knutson 978-2568Vdxjsr-BschmBl[facility] Start: 14-11-0347oxnifkbsmnZcvefez Mouchli Facility:[facility] DHStart: 09-92-8388Phjzaepgp encounterKarina Vincent MD Work Phone: EndocrinologyComment on above:ResultsStart: 08-04-2023 End: 23-24-1902Uirfzubmy Result EncounterGeneric External Data ProviderNOMS External Department UnsolicitedStart: 08-04-2023 End: 32-33-3071Ahbsqgprm Result EncounterGeneric External Data ProviderNOMS External Department UnsolicitedStart: 07-20-2023 End: 54-42-0786Xqrgalnmb department patient visitJoleonardo Danileson MD Work Phone: [facility] Emergency MedicineComment on above:Nausea and vomiting, unspecified vomiting type (Primary Dx); Gastritis, presence of bleeding unspecified, unspecified chronicity, unspecified gastritis typeStart: 06-13-2023 End: 66-85-2422Eyfzyfhc HealthDienrrique Vincent MD Work Phone: EndocrinologyComment on above:Prolactinoma (HCC) (Primary Dx); 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HCC); Elevated prolactin levelStart: 05-28-2023 End: 16-84-4961Kwlxsgenw Result EncounterGeneric External Data ProviderNOMS External Department UnsolicitedStart: 05-28-2023 End: 76-21-2703Oriifjjkk Result EncounterGeneric External Data ProviderNOMS External Department UnsolicitedStart: 05-23-2023 End: 93-13-7784Jgqflraky Result EncounterCorey Halina DO Work Phone: noms External Department UnsolicitedStart: 05-23-2023 End: 44-91-6596Qawshelhu Result EncounterCorey Halina DO Work Phone: noms External Department UnsolicitedStart: 03-19-2023 Patient encounter procedureCorey Halina DO Work Phone: noms HealthcareStart: 03-22-2020 End: 67-53-5495Ckvpfzv encounter procedureGREGORY MICHELLEFacility:T5Rtefn: 03-79-1933Zvjwitwri for preprocedural laboratory examinationGREGORY TROYParma Community General Hospitaltart: 99-08-0099Umgehkbey for other preprocedural examination [facility]tart: 02-23-2020 End: 55-85-3106Yzjgujq encounter procedureGREGCOLTON Cunhacility:L4Sjxxo: 02-20-2020 End: 37-15-6867Pccddbj encounter procedureGREGCOLTON Cunhacility:F9Mdvux: 02-16-2020 End: 60-91-9677Pnhundb encounter procedureGREGCOLTON Cunhacility:K6Wlsaxbqad for other preprocedural examinationDouglas County Memorial Hospital HospitalEncounter for preprocedural laboratory examinationSCCI Hospital [facility] Procedures DateProcedureProcedure DetailPerforming ClinicianStart: 51-80-0010Suntm dip stick/tablet rgnt non-auto w/o micrscpAmy Melonie PA Work Phone: Start: 25-11-4324Xumon dip stick/tablet rgnt non-auto w/o micrscpCorey Halina DO Work Phone: Start: 42-55-0851Arnqi dip stick/tablet rgnt non-auto w/o micrscpKristina Td [employer] Work Phone: Start: 31-66-4021Plwfc dip stick/tablet rgnt non-auto w/o micrscpCorey Halina DO Work Phone: Start: 10-90-0000Blfyl dip stick/tablet rgnt non-auto w/o micrscpCorey Halina DO Work Phone: Start: 67-38-7323Hilki dip stick/tablet rgnt non-auto w/o micrscpCorey Halina DO Work Phone: Start: 09-10-2024 End: 90-76-7877Jgxvqwazshyb online assessment and managementHyperemesis of pregnancyMaria T Lambert RD Work Phone: comment on above:Hyperemesis of ; Poor weight gain of , second trimesterStart: 07-09-3502CZJKIYGLZ VAGINITIS (HTRX)Uriel Palomareso DO Work Phone: Start: 81-52-7843Ydsdl dip stick/tablet rgnt non-auto w/o micrscpCorey [facility] DO Work Phone: Start: 40-42-5507YYD,APTIMA HPV,AGE GDLNCorey [facility] DO Work Phone: Start: 95-93-8488Tertqsyvvwv observation [Identifier] in Cervix by Cyto Taisha Lambert RD Work Phone: Start: 39-39-3112Kkddv chlamydia trachomatis amplified probe Juhi Claire MD Work Phone: Start: 40-54-2324Xdha tthrc r-t 2d w/wom-mode compl spec&colr Han Obregon MD Work Phone: Start: 53-77-6206Zkkkv metabolic panel calcium total Amine Alethea ELLISON Work Phone: Start: 12-72-1799Euyrneqzom exam abdomen 1 Ramona lCaire MD Work Phone: Start: 39-30-7842Bk uterus limited 1/> fetusesAlexis N Bisi PA-C Work Phone: Start: 30-44-9815Owxir test visual color cmprsn methsAlexis N Bisi PA-C Work Phone: [phone]: 88-18-5257Xltp tst prsmv instrmnt chem analyzers pr Ammon Claire MD Work Phone: [phone]: 17-01-0305DTZBF URINE DORAN TUBEAlexis N Bisi PA-C Work Phone: Start: 29-96-5063Yeljdbunje complete W Reflex Culture panel - UrineAlexis N Bisi PA-C Work Phone: Start: 84-32-9700Dsqsn dip stick/tablet reagent auto microscopyAlexis N Bisi PA-C Work Phone: Start: 87-99-3957Kftjdrwxwpgh chorionic quantitative León N Bisi PANDA Work Phone: Start: 39-28-8240Emnyhibr bldAlexis N Bisi PANDA Work Phone: Start: 16-78-4151Pqc routine ecg w/least 12 lds trcg only w/o i&rMlaura Dobson MD Work Phone: Start: 73-35-9975Bpm routine ecg w/least 12 lds trcg only w/o i&rCameron D Lemasters DO Work Phone: start: 01-71-3712Bkpcluvzxz exam chest single view Milan D Lemasters DO Work Phone: start: 02-19-7771Nmwsinwiwl complete W Reflex Culture panel - UrineCameron D Lemasters DO Work Phone: start: 70-54-3898Onewx dip stick/tablet reagent auto microscopyCameron D Lemasters DO Work Phone: start: 86-62-3624Irgctdvpkoddn metabolic panelCameron D Lemasters DO Work Phone: start: 71-99-6959Ewrcd dip stick/tablet rgnt non-auto w/o micrscpCorey Halina DO Work Phone: Start: 12-85-7332CYC TESTCorey Halina DO Work Phone: Start: 06-24-2024 End: 94-17-6883Sevet dip stick/tablet rgnt non-auto w/o micrscpCorey Halina DO Work Phone: Start: 43-00-5460AN PELVIS TRANSVAGINALGeneric External Data ProviderStart: 38-12-4603SX PELVIS TRANSVAGINALGeneric External Data ProviderStart: 22-90-6980EL PELVIS TRANSVAGINALGeneric External Data ProviderStart: 59-32-0051TK PELVIS TRANSVAGINALGeneric External Data Provider Start: 75-62-3340Xxczfcyd Franklin Ortiz MD Work Phone: Start: 19-24-9929Fjsgq metabolic panel calcium total Uriel R Halina DO Work Phone: Start: 33-21-9312Rrhtnun function panelCorey R Halina DO Work Phone: Start: 68-55-5030RPB 1&2 AB/AG SCREEN (P24 AG)Not In System Ref ProvStart: 53-11-0495Bgth ia hepatitis b surface antigenNot In System Ref ProvStart: 36-30-0822HLTQXQLV TOTAL(UNKNOWN SYPHILIS STATUS)Not In System Ref ProvStart: 77-07-3360PZDC AND SCREENNot In System Ref ProvStart: 03-14-2024 MLR HEMOGLOBIN Z9HEyulguk External Data ProviderStart: 72-30-8513JMMD CBC W/ AUTO DIFFPeTan MD Work Phone: start: 27-41-6743LSMC JESUS INDIVIDUAL ABSCarolyne Collazo MD Work Phone: start: 14-69-5490DYYX RF QUANTPeTan MD Work Phone: start: 93-23-7485ITHN WRITTEN AUTHORIZATIONPeTan MD Work Phone: start: 21-94-7305NG CATHETERIZATION AND INTRODUCTION FOR SONOHYSTEROGRAPHY CHARGEGeneric External Data ProviderStart: 02-18-2024 SONOHYSTEROGRAPHYGeneric External Data ProviderStart: 46-83-7886JML THYROID STIM HORMONEGeneric External Data ProviderStart: 55-69-8309MPU PREG QUANT HCGGeneric External Data ProviderStart: 03-60-3055LZ HYSTEROSALPINGOGRAMCorey Halina DO Work Phone: Start: 82-20-1915FV HYSTEROSALPINGOGRAPHYGeneric External Data ProviderStart: 10-19-1844NOX PREG QUANT HCGCorey Halina DO Work Phone: Start: 25-88-4992NOD PROGESTERONEGeneric External Data ProviderStart: 61-71-2013SfmprlshgzmBrbzvbw Joseli Start: 23-98-0079EujdojflrmqodjcdyjlnctahxbVpwsopi Mouchli Start: 37-77-7568Gjr brain brain stem w/o w/contrast materialGeneric External Data ProviderStart: 05-95-2703QI CHEST ABDOMEN PELVIS W IV CONTRASTJOSEF LOWEStart: 01-45-8247Yfwcwil [Moles/volume] in Serum or Plasma GWEN LOWEStart: 60-19-1070LZ CHEST 1 VIEWJOSEF LOWEStart: 95-96-4497MSQI SCREEN,URINEJOSEF LOWEStart: 38-74-6977NWOLT URINE DORAN TUBEJOSEF LOWEStart: 35-39-9651MIYSYORMLE MICROSCOPIC WITH REFLEX CULTUREJOSEF LOWEStart: 07-20-2023 URINALYSIS WITH REFLEX CULTURE AND MICROSCOPICJOSEF LOWEStart: 91-13-5874Ud thorax w/contrast materialAbiodun Ochoa PA-C Work Phone: Start: 21-00-8173DOB W Auto Differential panel - Blood GWEN LOWEStart: 99-65-2148Akxqrekncpexe metabolic 2000 panel - Serum or Plasma GWEN LOWEStart: 24-59-8947AQFXU CHORIONIC GONADOTROPIN, SERUM QUANTITATIVEJOSEF LOWEStart: 42-29-4557Bsdvtfz [Moles/volume] in Serum or PlasmaJOSEF LOWEStart: 48-31-5544Awftys [Enzymatic activity/volume] in Serum or PlasmaJOSEF LOWEStart: 16-10-1807VZPEWEIS I, HIGH SENSITIVITYJOSEF LOWEStart: 72-22-0413EPE 12-LEAD GWEN LOWEStart: 07-75-5123FWTFFE PERIPHERAL IVJOSEF LOWEStart: 92-85-3958Nqxva of lactateAbiodun Ochoa PA-C Work Phone: Start: 21-83-0627Qadxfmzfid exam chest single viewAbiodun Ochoa PA-C Work Phone: Start: 65-79-0818Gcau tst prsmv instrmnt chem analyzers pr dateAbiodun Ochoa PA-C Work Phone: Start: 37-71-6032Gthhnhludt complete W Reflex Culture panel - UrineAbiodun Ochoa PA-C Work Phone: Start: 22-10-4153Gcmbd dip stick/tablet reagent auto microscopyComaria ines Ochoa PA-C Work Phone: Start: 50-86-9568Gepvvpewatzqw metabolic panelComaria ines Ochoa PA-C Work Phone: Start: 17-25-9773Kns routine ecg w/least 12 lds trcg only w/o i&rCody Davina Ochoa PA-C Work Phone: Start: 62-25-6802XQT HEAD/BRAIN WO/W CONTRGeneric External Data ProviderStart: 28-37-2703DO PELVIS W/ TRANSVAGINALCorey Halina DO Work Phone: Start: 37-85-0558XID CBC WITH AUTO DIFFCorey Halina DO Work Phone: Start: 31-72-7724RDH THYROID STIM HORMONEGeneric External Data ProviderStart: 68-77-3861XXS PREG QUANT HCGGeneric External Data ProviderStart: 88-23-4220PYE PROLACTINCorey Halina DO Work Phone: Start: 46-01-0939Swvwnadfzxm observation [Identifier] in Cervix by Cyto stainGeneric ProviderStart: 90-58-5996Zrny cerv/vag auto thin layer prep mnl screenCorey Halina DO Work Phone: Tonsillectomy and adenoidectomyPeter Zay Plan of Treatment DateCare ActivityDetailAuthorStart: 17-12-0219Sypnjp Vaccines (1 of 2)Zoster Vaccines (1 of 2)[facility] HospitalStart: 01-77-7230Ylhhwryhc for malignant neoplasm of cervixKettering Health Behavioral Medical CenterSelect Medical [facility] SystemStart: 98-90-2966Bmovqculr for malignant neoplasm of cervixNOMS HealthcareStart: 89-93-9771Zasgfiq ScreeningTobacco ScreeningMansfield Hospital SystemStart: 86-96-4888Bkpqxlr ScreeningTobacco ScreeningMansfield Hospital SystemStart: 11-07-2025 End: 65-28-5787TU MFM with or without consultUS MFM with or without consult Imaging Routine Hyperemesis of renal anomaly, 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 Nausea and vomiting during Poor weight gain of , second trimester In vitro fertilization 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, antepartum Expected: 11/07/2025 (Approximate),Expires: 11/07/2025 [facility] Work Phone: comment on above:Expected: 11/07/2025 (Approximate), Expires: 11/07/2025Start: 30-65-7773Jboem BMI ScreeningAdult BMI Screening [facility] SystemStart: 29-78-3208Wscxj BMI ScreeningAdult BMI Screening [facility] SystemStart: 46-06-4680Zjrgvdx ScreeningTobacco Screening [facility] SystemStart: 57-25-0967Vcrsl BMI ScreeningAdult BMI Screening [facility] SystemStart: 95-12-2142Cejpawf ScreeningTobacco Screening [facility] SystemStart: 09-02-2025 End: 36-05-1871CV MFM with or without consultUS MFM with or without consult Imaging Routine Hyperemesis of Poor weight gain of , second trimester In vitro fertilization 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, antepartum Abnormal ultrasound of kidney Expected: 09/02/2025 (Approximate), Expires: 09/02/2025[facility] Work Phone: comment on above:Expected: 09/02/2025 (Approximate), Expires: 09/02/2025Start: 12-00-0914Qmbwwnt ScreeningTobacco ScreeningMansfield Hospital SystemStart: 01-20-2025 End: 56-89-6574Zfyqmkbpzxth consultation with ilehohq9101/20/2025 2:00 PM EST Telemedicine Maternal- Medicine at [facility] [address] [place] [address] Mario Alberto Ortiz MD [address], [address] [place] [address], [place] [address] [facility]: 01-13-2025 End: 25-53-7809Noeuqof encounter procedureNOMS Whitley OBGYNComment on above: ArrivedStart: 12-31-2024 End: 57-19-7317Ufgotod encounter vcmigbaof77/29/2025 8:50 AM EDT Routine [facility] [address] [facility] [place], [id number] Dary Wilhelm PA [address] [place] [address] [facility] OBGYNStart: 12-31-2024 End: 92-42-2647Kbredtzxcgpk / ancillary services tzjuterztz69/29/2025 8:00 AM EDT Ancillary Procedure [facility] [address] [place] [address] [facility] OBGYNStart: 12-30-2024 End: 40-31-5796Pipguxk encounter osstbdfuv42/28/2025 9:15 AM EDT Appointment [facility] - Ultrasound [address] [place] [address] HatYbhashProMedica [facility] Park Hospital - UltrasoundStart: 57-96-4297ZYX High Risk: (Elderly (60+) or Population) (1 - Risk 1-dose series)RSV High Risk: (Elderly (60+) or Population) (1 - Risk 1-dose series)[facility] HospitalStart: 12-16-2024 End: 33-32-1025SO for pregnancyUS OB follow up transabdominal approach Imaging Routine Encounter for in vitro fertilization Expected: 12/16/2024, Expires: 04/18/2025[facility] Work Phone: comment on above:Expected: 12/16/2024, Expires: 04/18/2025Start: 12-16-2024 End: 39-73-1151Zufmtnc encounter xjfxybtqs44/14/2025 9:30 AM EDT Routine [facility] [address] [place], [id number] Uriel Meade DO [address] [facility] [place] [address] NOMHiren MCCORMACKtart: 12-09-2024 End: 04-35-5646Rgxdcujlofjg consultation with zjddumx1212/09/2024 11:30 AM EDT Telemedicine Maternal- Medicine at [facility] [address] [place] [address] Mario Alberto Ortiz MD [address] [facility], [address] [place] [address] 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 Expected: 12/04/2024, Expires: 12/04/2025[facility] Work Phone: comment on above:Expected: 12/04/2024, Expires: 12/04/2025Start: 12-04-2024 End: 11-81-0761Mvoidlu encounter ytxehxetq52/02/2025 9:15 AM EDT Appointment [facility] [address] [facility] [address] [place] [address] [phone] Medicine [place] ClintonStart: 12-02-2024 End: 24-96-1351Rjddazt encounter procedureNOMS [place] OBGYNComment on above: ArrivedStart: 11-18-2024 End: 35-84-5913QX biophysical profile w non stress testUS biophysical profile w non stress test Imaging Routine resulting from in vitro fertilization in second trimester ([facility]) Expected: 11/18/2024 (Approximate), Expires: 05/18/2025[facility] Work Phone: comment on above:Expected: 11/18/2024 (Approximate), Expires: 05/18/2025Start: 11-18-2024 End: 26-52-6293Zluobey encounter procedureNOMS [place] OBGYNComment on above: ArrivedStart: 11-06-2024 End: 38-10-3063Ttrlagn encounter bsliuawei57/04/2025 9:15 AM EDT Appointment [facility] [address] [facility] [address] [place] [address] Maternal Medicine ExiraStart: 11-03-2024 COVID-19 Vaccine ( season)COVID-19 Vaccine ( season)[facility] HealthcareStart: 50-32-7613Uvikvydsx vaccinationKANE COUNTY HUMAN RESOURCE SSD HealthcareStart: 10-21-2024 End: 96-76-9551PDF panel - Blood by Automated countCBC Lab Routine Diabetes mellitus screening Expected: 10/21/2024 (Approximate), Expires: 10/21/2025[facility] Work Phone: comment on above:Expected: 10/21/2024 (Approximate), Expires: 10/21/2025Start: 10-21-2024 End: 93-43-5775Iadeivllfyw of glucose 1 hour after glucose challenge for glucose tolerance testGlucose tolerance, 1 hour Lab Routine Diabetes mellitus screening Expected: 10/21/2024 (Approximate), Expires: 10/21/2025[facility] HealthcareComment on above:Expected: 10/21/2024 (Approximate), Expires: 10/21/2025Start: 10-21-2024 End: 23-13-2810Ojqudmg encounter procedureNOMS BCP OBComment on above:Arrived Start: 32-27-3725Oezaexhxxw hospital visit by nyaudmmvf63/01/2025 9:15 AM EDT Hospital Encounter [facility] - MRI Imaging [address] [place] [address] EjpQwilnj [facility] - MRI ImagingStart: 10-02-2024 End: 26-55-1425Zhgsqixcnxkt consultation with gozolsc8210/02/2024 2:30 PM EDT Telemedicine Maternal- Medicine at [facility] [address] [place] [phone] Krupa Jones MD [address] [facility], [address] [place] [address] [facility]: 10-02-2024 End: 99-72-8173Blzrqjj encounter adqywbuop37/31/2025 9:45 AM EDT Appointment [facility] [address] [facility] [address] [place] [address] [phone] Medicine [place]Start: 09-25-2024 End: 28-57-9323Ayzjipq encounter procedureNOMS BCP OBComment on above:Arrived Start: 09-24-2024 End: 84-42-9043Fjtaoih encounter upvcozhao91/23/2025 3:00 PM EDT Office Visit [facility] [address] [place] [address] Uriel Meade, DO [address] [place] [address] [facility] BCP OBStart: 09-17-2024 End: 61-65-2561XY Abdomen WO contrastMR abdomen without contrast Imaging Routine Hyperemesis of Gastroesophageal reflux disease, unspecified whether esophagitis present Expected: 09/17/2024, Expires: 09/17/2025[facility] Work Phone: comment on above:Expected: 09/17/2024, Expires: 09/17/2025Start: 09-17-2024 End: 60-52-8959WM Chest WO contrastMR chest without contrast Imaging Routine Hyperemesis of Gastroesophageal reflux disease,unspecified whether esophagitis present Expected: 09/17/2024, Expires: 09/17/2025[facility] SystemComment on above:Expected: 09/17/2024, Expires: 09/17/2025Start: 09-10-2024 End: 14-63-9507Rsjiikqigrrg consultation with upahulb6209/10/2024 8:00 AM EDT Telemedicine Maternal- Medicine at [facility] [address] [address] Maria T Lambert, ROSEMARY [address], [address] [place] [phone] [facility]: 52-36-4780Bltcqsfkas hospital visit by owudvojyu88/03/2025 9:30 AM EDT Hospital Encounter [facility] - Ultrasound [address] [place] [address] [facility] - UltrasoundStart: 09-02-2024 End: 42-87-3608FH AbdomenUltrasound abdomen complete Imaging STAT 16 weeks gestation of Hyperemesis of Expected: 09/02/2024, Expires: 09/02/2025[facility] Work Phone: comment on above:Expected: 09/02/2024, Expires: 09/02/2025Start: 09-02-2024 End: 69-84-3789Bhtzpmy encounter zqzitrfdg55/01/2025 8:45 AM EDT Office Visit Maternal- Medicine at [facility] [address] [address] Mario Alberto Ortiz MD [address], [address] [place] [address] [facility]: 09-02-2024 End: 38-40-3170Vkyydgb encounter xhjxysltg31/01/2025 7:30 AM EDT Appointment [facility] [address] [place] [place] [address] [phone] Hospital US ImagingStart: 2024 Screening for malignant neoplasm of cervixHPV/CotestNOMS HealthcareStart: 08-26-2024 End: 61-08-1715Umjij fetoprotein, maternalAlpha fetoprotein, maternal Lab Routine Second trimester ([facility]) Expected: 08/26/2024 (Approximate), Expires: 10/26/2024[facility] Work Phone: comment on above:Expected: 08/26/2024 (Approximate), Expires: 10/26/2024Start: 08-26-2024 End: 68-49-6803Sejpadu encounter procedureNOMS BCP OBComment on above:Arrived Start: 07-30-2024 End: 06-45-4103Mzdwfrw encounter procedureNOMS BCP OBComment on above:Arrived Start: 07-17-2024 End: 74-41-6309tkzhfccvpz38/15/2025 2:30 PM EDT Initial [facility] [address] [place] [address] [facility] BCP OBStart: 06-30-2024 End: 54-46-2722Mziiifhgghvx / ancillary services rzzaswxelh34/28/2025 10:00 AM EDT Ancillary Procedure [facility] [address] [place], [place] [address] [facility] BCP OBStart: 06-24-2024 End: 70-01-2552CW Pelvis transvaginalUS OB transvaginal Imaging Routine Hemorrhage in early , antepartum Subchorionic hematoma in first trimester, single or unspecified fetus Expected: 06/24/2024, Expires: 09/23/2024 [facility] Work Phone: comment on above:Expected: 06/24/2024, Expires: 09/23/2024Start: 03-26-2024 End: 93-19-3998Vpbqpen encounter vqfiecjpc06/22/2025 1:00 PM EST Office Visit [facility] [address] [facility] [place] [address] Uriel Meade, DO [address] [place], [place] [address] [facility] BCP OBStart: 03-24-2024 End: 32-58-9703Zlbrqnl encounter apkuctmvs97/20/2025 4:00 PM EST Office Visit [facility] [address] [place] [address] Uriel Meade, DO [address] [place], [place] [address] [facility] BCP OBStart: 02-15-2024 End: 79-52-9856Ijvusszlphos consultation with qhppgjk3802/15/2024 10:00 AM EST Telemedicine [facility] [address] [place] [phone] Carol Magaña PA [address] [place] [address] [facility] NE FMStart: 11-22-2023 End: 49-50-4212Jefybvx encounter mbsejledj23/19/2024 4:00 PM EDT Office Visit [facility] [address] [place] [address] Carolyne Collazo MD [address] [place] [address] [facility] NE FMStart: 23-44-0520MUSAI-19 Vaccine ( season)COVID-19 Vaccine ( season)[facility] HospitalStart: 16-03-8873Uznavfmsc vaccinationMetroHealth Cleveland Heights Medical Centertart: 07-11-2023 End: 00-72-8143Izzlwruciwjil [Mass/volume] in PlasmaACTH BLD Lab Routine 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[facility]) Expected: 07/11/2023, Expires: 10/10/2023leveland ClinicComment on above:Expected: 07/11/2023, Expires: 10/10/2023Start: 07-11-2023 End: 21-78-1954Tzppvkoz [Mass/volume] in Serum or PlasmaCORTISOL, SERUM Lab Routine 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[facility]) Expected: 07/11/2023, Expires: 10/10/2023 [facility] HospitalComment on above:Expected: 07/11/2023, Expires: 10/10/2023Start: 07-11-2023 End: 74-06-6477Bcqwhujit (E2) [Mass/volume] in Serum or PlasmaESTRADIOL-17B BLD Lab Routine 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[facility]) Expected: 07/11/2023, Expires: 10/10/2023 [facility] HospitalComment on above:Expected: 07/11/2023, Expires: 10/10/2023Start: 07-11-2023 End: 83-15-0889Qydejclenew [Units/volume] in Serum or PlasmaFOLLICLE STIMULATING HORMONE Lab Routine 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[facility]) Expected: 07/11/2023, Expires: leveland ClinicComment on above:Expected: 07/11/2023, Expires: 10/10/2023Start: 07-11-2023 End: 91-58-1895LLBHOZU LIK GR FAC IINSULIN LIK GR FAC I Lab Routine 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[facility]) Expected: 07/11/2023, Expires: 10/10/2023leveland ClinicComment on above:Expected: 07/11/2023, Expires: 10/10/2023Start: 07-11-2023 End: 95-58-6505Lscbpihf [Units/volume] in Serum or PlasmaLUTEINIZING HORMONE Lab Routine 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[facility]) Expected: 07/11/2023, Expires: 10/10/2023 [facility] HospitalComment on above:Expected: 07/11/2023, Expires: 10/10/2023Start: 07-11-2023 End: 35-76-5220VT Pituitary and Sella turcica WO and W contrast IVMRI PITUITARY WO/W IVCON Radiology Routine 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[facility]) Expected: 07/11/2023, Expires: 08/09/2024[facility] centerand [facility] Work Phone: Comment on above:Expected: 07/11/2023, Expires: 08/09/2024Start: 07-11-2023 End: 50-16-5380Xgtixxtqd [Mass/volume] in Serum or PlasmaPROLACTIN Lab Routine 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[facility]) Expected: 07/11/2023, Expires: 10/10/2023[facility] centerand ClinicComment on above:Expected: 07/11/2023, Expires: 10/10/2023Start: 07-11-2023 End: 39-97-1847Kzkwugvpylfg [Mass/volume] in PlasmaGROWTH HORMONE Lab Routine 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[facility]) Expected: 07/11/2023, Expires: 10/10/2023[facility] ClinicComment on above:Expected: 07/11/2023, Expires: 10/10/2023Start: 07-11-2023 End: 10-92-5672Bdbbrsxzuro [Units/volume] in Serum or PlasmaTHYROID STIMULATING HORMONE Lab Routine 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[facility]) Expected: 07/11/2023, Expires: leveland ClinicComment on above:Expected: 07/11/2023, Expires: 10/10/2023 Start: 07-11-2023 End: 35-37-1980Cxbqgekuz (T4) free [Mass/volume] in Serum or PlasmaT4 FREE/FREE THYROXINE Lab Routine 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[facility]) Expected: 07/11/2023, Expires: 10/10/2023[facility] ClinicComment on above:Expected: 07/11/2023, Expires: 10/10/2023Start: 98-89-1557Lrpuchuhdf Health ScreeningBehavioral Health ScreeningMetroHealth Cleveland Heights Medical Centertart: 80-22-1280Qryig-19 Vaccine () Covid-19 Vaccine ()[facility] Centertart: 95-56-2893QPzY,Tdap and Td Vaccines (3 - Td or Tdap)DTaP,Tdap and Td Vaccines (3 - Td or Tdap) [facility]: 68-16-0012ZBaF/Tdap/Td Vaccines (3 - Td or Tdap) DTaP/Tdap/Td Vaccines (3 - Td or Tdap)[facility]: 16-72-2552Dxgvk microalbumin profileDTaP,Tdap,Td Vaccine (3 - Td or Tdap) [facility] Cent[facility]: 17-61-8145Tlmferizx for malignant neoplasm of cervix [facility] Cent[facility]art: 85-85-1126Zgeesezms B Vaccine (3 of 3 - 19+ 3-dose series)Hepatitis B Vaccine (3 of 3 - 19+ 3-dose series)[facility] Cent[facility]: 94-13-5305Nnafiglqx B Vaccines (3 of 3 - 19+ 3-dose series)Hepatitis B Vaccines (3 of 3 - 19+ 3-dose series)[facility]: 05-12-2014 Hepatitis A Vaccines (2 of 2 - 2-dose series)Hepatitis A Vaccines (2 of 2 - 2- dose series)[facility]: 49-38-2662Wdohrhhntndj Vaccine: Pediatrics (0 to 5 Years) and At-Risk Patients (6 to 64 Years) (1 of 2 - PCV)Pneumococcal Vaccine: Pediatrics (0 to 5 Years) and At-Risk Patients (6 to 64 Years) (1 of 2 - PCV)[facility]: 45-32-5769Jdpbm BMI Screening Adult BMI ScreeningAtrium Healthtart: 19-66-7954Ccclqtxdb C screening Hepatitis C ScreeningMetroHealth Cleveland Heights Medical Centertart: 57-85-3576VYV screeningHIV Screening [facility] Centertart: 34-31-2024Kdusair of varicella vaccinationVaricella Vaccines (2 of 2 - 13+ 2-dose series)[facility] HospitalStart: 99-67-1134Sfianpsuu vaccinationVaricella Vaccines (2 of 2 - 13+ 2-dose series)[facility]: 27-85-0930CFrT/Tdap/Td Vaccines (3 - Td or Tdap)DTaP/Tdap/Td Vaccines (3 - Td or Tdap)[facility] HealthcareStart: 53-13-0558Qdohzvntfn Screening Depression ScreeningAtrium Healthtart: 20-34-0974Cmyowwgfgtly Vaccine: Pediatrics (0 to 5 Years) and At-Risk Patients (6 to 64 Years) (1 of 2 - PCV)Pneumococcal Vaccine: Pediatrics (0 to 5 Years) and At-Risk Patients (6 to 64 Years) (1 of 2 - PCV)[facility]: 36-46-5053FTQ Vaccines (2 of 3 - 4-dose series)IPV Vaccines (2 of 3 - 4-dose series)[facility]: 29-53-7931PPE screeningHIV ScreeningUnMercy Health: 88-72-6724Wipfz panelLipid PanelUnMercy Health: 38-99-5501Twwryu Adult PhysicalYearly Adult PhysicalUnWilson Health End: 65-62-7809Sqbtcgeun UltrasoundAbdominal Ultrasound Procedures STAT Once for 1 Occurrences starting 08/15/2024 until 08/15/2024[facility] Service Area Work Phone: Comment on above:Once for 1 Occurrences starting 08/15/2024 until 08/15/2024 End: 04-66-5494LFH panel - Blood by Automated countCBC without diff Lab Routine 16 weeks gestation of Hyperemesis of 1 Occurrencesstarting 09/02/2024 until 09/02/2025[facility] CenterComment on above:1 Occurrences starting 09/02/2024 until 09/02/2025BC W Auto Differential panel - BloodCBC and differential Lab Routine Anemia, unspecified type Ordered: 12/02/2024[facility] Work Phone: comment on above:Ordered: 12/02/2024HLAMYDIA TRACHOMATIS (GENITO/STI)CHLAMYDIA TRACHOMATIS (GENITO/STI) Lab Routine STD exposure Ordered: 08/26/2024[facility] HospitalComment on above:Ordered: 08/26/2024 End: 62-23-6809Wyhjmfhzcplae metabolic 2000 panel - Serum or PlasmaComprehensive metabolic panel Lab Routine 16 weeks gestation of Hyperemesis of 1 Occurrences starting 09/02/2024 until 09/02/2025[facility] Health SystemComment on above:1 Occurrences starting 09/02/2024 until 09/02/2025 End: 26-11-5707Afdjjmsqvnegpi vitamin b-12Vitamin B12 Lab Routine 16 weeks gestation of Hyperemesis of 1 Occurrences starting 09/02/2024 until 09/02/2025[facility] SystemComment on above:1 Occurrences starting 09/02/2024 until 09/02/2025ytology Cervical or vaginal smear or scraping studyPap Smear Pathology and Cytology Routine Well woman exam with routine gynecological exam Ordered: 08/26/2024NOAL HealthcareComment on above: Ordered: 08/26/2024ECG 12 leadECG 12 lead ECG STAT 07/20/2023 2:57 PM [facility] Work Phone: End: [id number] [facility] Work Phone: Comment on above:Once for 1 Occurrences starting 08/13/2024 until 08/13/2024ECG 12 leadECG 12 lead ECG STAT 08/15/2024 10:42 AM [facility] Work Phone: End: [id number], 12-lead PRN [facility] Work Phone: Comment on above:As needed until discontinued starting 08/15/2024Once for 1 Occurrences starting 08/15/2024 until 08/15/2024 End: [id number] Urine Doran [facility] Work Phone: Comment on above:Once for 1 Occurrences starting 07/20/2023 until 07/20/2023 End: 42-23-8423Hrhbk Urine Doran [facility] Work Phone: Comment on above:Once for 1 Occurrences starting 08/13/2024 until 08/13/2024 End: 71-26-4343Wwqrlsvi [Mass/volume] in Serum or PlasmaFerritin Lab Routine 16 weeks gestation of Hyperemesis of 1 Occurrences starting 09/02/2024 until 09/02/2025[facility] SystemComment on above:1 Occurrences starting 09/02/2024 until 09/02/2025 End: 63-14-9586DcfzagQoqefj Lab Routine 16 weeks gestation of Hyperemesis of 1 Occurrences starting 09/02/2024 until 09/02/2025 [facility] SystemComment on above:1 Occurrences starting 09/02/2024 until 09/02/2025Gas panel - Arterial cord bloodBlood Gas Cord Arterial Lab Timed As needed (Lab) until discontinued starting 08/15/2024[facility] Work Phone: Comment on above:As needed (Lab) until discontinued starting 08/15/2024Gas panel - Venous cord bloodBlood Gas Cord Venous Lab Timed As needed (Lab) until discontinued starting 08/15/2024[facility] Work Phone: Comment on above:As needed (Lab) until discontinued starting 08/15/2024 End: 49-87-5365Tkizhncqe [Mass/volume] in Serum or PlasmaMagnesium Lab Routine 16 weeks gestation of Hyperemesis of 1 Occurrences starting 09/02/2024 until 09/02/2025[facility] SystemComment on above:1 Occurrences starting 09/02/2024 until 09/02/2025Neisseria gonorrhoeae DNA [Presence] in Unspecified specimen by REEMA with probe detectionNeisseria gonorrhea DNA probe, direct Lab Routine STD exposure Ordered: 08/26/2024[facility] HealthcareComment on above:Ordered: 08/26/2024Nonstress [facility]Marg[facility]ville [facility] Work Phone: comment on above:Daily until discontinued starting 08/15/2024s needed until discontinued starting 08/15/2024SURESWAB(R) ADVANCED VAGINITIS PLUS, TMASURESWAB(R) ADVANCED VAGINITIS PLUS, TMA Pathology and Cytology Routine STD exposure Ordered: 08/26/2024[facility] HealthcareComment on above:Ordered: 08/26/2024 End: 94-01-9110Xcheiwloqg complete W Reflex Culture panel - [facility]UN[facility] Work Phone: Comment on above:Once (Lab) for 1 Occurrences starting 07/20/2023 until 07/20/2023 End: 26-60-7833Chlfapacfo complete W Reflex Culture panel - [facility]rineUNM [facility] Service [facility] Work Phone: comment on above:Once (Lab) for 1 Occurrences starting 08/13/2024 until 08/13/2024 End: 93-86-1910Gctkufchne macro (dipstick) panel - UrinePOCT urinalysis dipstick manually resulted Point of Care Testing Routine Daily (Lab) for 1 Weeks sta rting 08/15/2024 until 08/20/2024[facility] Work Phone: Comment on above:Daily (Lab) for 1 Weeks starting 08/15/2024 until 08/20/2024 Immunizations Immunization DateImmunizationNotesCare ZnhjduxoRbuzpnoa27-46-9868xtchnybtp, injectable, quadrivalent, preservative freeCorey Halina DO Work Phone: [facility] HospitalObkjtddivf47-96-4604ybianzmgk virus vaccine, unspecified formulationKarina Vincent MD Work Phone: [phone]-TcqdbAccess [facility] Nprsty04-82-2848 hepatitis B vaccine, adult dosageMohamad Mouchli [phone]-YoqnoBluffton Hospital Digestive Cwygbo75-86-0407 hepatitis B vaccine, adult dosageMohamad Mouchli [phone]-XumwoMemorial Hospital09-10-2014 hepatitis A vaccine, pediatric/adolescent dosage, 2 dose scheduleCorey Halina DO Work Phone: [facility] HospitalWbeezzsewe04-31-4435wgxgjquvf A vaccine, unspecified formulationMohamad Mouchli [phone]-AsonfMemorial Hospital09-10-2014 hepatitis B vaccine, pediatric or pediatric/adolescent dosageMohamad Mouchli [phone]-IvppjBluffton Hospital Digestive Bejaiw59-50-4187 hepatitis A and hepatitis B vaccineGwen Danielson MD Work Phone: [facility] Work Phone: [phone]xrlq virus vaccine, whole virusCorey Halina DO Work Phone: [facility] HospitalMgjwflpmay47-56-2707wuejqsyeq, wholeMohamad Mouchli [phone]-OsaifMemorial Hospital10-12-2013 measles, mumps and rubella virus vaccinePeter Collazo [facility] HospitalComment on above:Reason for Medication: Other (see comment)68-40-2263jhbnvhxtp A vaccine, pediatric/adolescent dosage, 2 dose scheduleCorey Halina DO Work Phone: [facility] HospitalPzccbygowd31-86-8845qwuuopfnd A vaccine, unspecified formulationMohamad Mouchli [phone]-PwdgkMemorial Hospital02-16-2011 varicella virus vaccineGwen Danielson MD Work Phone: [phone]-HosfzMemorial Hospital03-27-2009 meningococcal ACWY vaccine, unspecified formulationMohamad Mouchli [phone]-XadxuMemorial Hospital03-27-2009 meningococcal polysaccharide (groups A, C, Y and W-135) diphtheria toxoid conjugate vaccine (MCV4P)Uriel Halina DO Work Phone: [facility] HospitalEecerkmsdn29-39-8157iellitp toxoid, reduced diphtheria toxoid, and acellular pertussis vaccine, adsorbedMohamad Mouchli [phone]-WusoxMemorial Hospital10-11-2007 HPV, unspecified formulationMohamad Mouchli [phone]-FwjuqMemorial Hospital10-11-2007 human papilloma virus vaccine, quadrivalentCorey Halina DO Work Phone: [facility] HospitalXhmmasqqpr43-25-7739EDB, unspecified formulation Mohamad Mouchli [phone]-LdsgfMemorial Hospital06-11-2007 human papilloma virus vaccine, quadrivalentCorey Halina DO Work Phone: [facility] HospitalHpmojexllx27-08-1987OKW, unspecified formulation Mohamad Mouchli [phone]-FszvaMemorial Hospital04-11-2007 human papilloma virus vaccine, quadrivalentCorey Halina DO Work Phone: noChristian HospitalHwgtaczytk74-92-9083krizmrcvni, tetanus toxoids and acellular pertussis vaccine, unspecified formulationCorey Halina DO Work Phone: [facility] HospitalWvvxozioxd90-00-0444ASjZ, unspecified formulation Mohamad Mouchli [phone]-BieogMemorial Hospital04-05-2000 measles, mumps and rubella virus vaccineMohamad Mouchli [phone]-EkwdzMemorial Hospital04-05-2000 poliovirus vaccine, inactivatedCorey Halina DO Work Phone: noChristian HospitalAokxgxybut11-30-7789xzsynubkkl vaccine, unspecified formulationGwen Danielson MD Work Phone: [phone]-PfqpxBluffton Hospital [facility] Health Payers DatePayer CategoryPayerPolicy [id number] Health Insurance [id number] 52-83-2867BxkgLincoln County Medical Center1.2.840.131064.1.13.693.2.7.9.302119.674020.315 90-87-5521UcsuNoland Hospital [facility] CareNOR[facility] Member Subscriber Plan / Payer (Effective 2019-Present) Name: Indu Jorgensen Relation to Subscriber: Self Name: Indu Jorgensen Payer ID: [id number] (NAIC) Type: Not on file Address: [address] [place] [id number] 20-01-0101ZngyNoland Hospital Anniston Care - Other 1.2.840.342930.1.13.424.2.7.9.165941.508.95728-67-8096Hisipxx 1.2.840.958862.1.13.159.2.7.3.875490.89291-34-2633Mhzhwqk5215840 2.16840.1.954507.3.579.2.79590-25-0633Iarlxto2241624 2.160.1.867443.3.579.2.07473-94-9764Bxedxel0140400 2.0.1.305580.3.579.2.69105-04-1847Bcaghcd4188230 2.16840.1.442067.3.579.2.94763-63-9042Ltdppyj53254041 2.16840.1.628294.3.579.2.624787-13-3641Afuzuaz72384632 2.840.1.351905.3.579.2.33492-74-9419Rielsfc09862165 2.16840.1.007286.3.579.2.24843-31-1426Yvemcwp21764050 2.16840.1.998366.3.579.2.14461-85-6216Nmfzfjx39909667 2.16840.1.143415.3.579.2.21478-75-7959Jahxjfl92264362 2.16840.1.110639.3.579.2.13985-84-6557Dcdvkaw51368103 2.16.840.1.141455.3.579.2.15540-72-5101Hflnpel06295596 2.16.840.1.767578.3.579.2.82625-81-8550Ksfytkk66491673 2.16.840.1.396504.3.579.2.40926-40-9292Fvmigod79854400 2.16.840.1.246713.3.579.2.13440-49-1213Ozetzax43262487 2.16.840.1.533329.3.579.2.60290-01-0999Kiudtwy50529855 2.840.1.004366.3.579.2.36093-72-4619Azsbwdc47267508 2.840.1.563723.3.579.2.91923-92-1315Jybgqpb06349025 2.840.1.947400.3.579.2.57663-09-8643Pnkvazl48096726 2.840.1.596184.3.579.2.18472-63-3870Dgbuwhb74120879 2.840.1.963959.3.579.2.44914-24-0592Lzqjdgh41502766 2.840.1.856701.3.579.2.37056-23-8254Pqsgjxv80557851 2.840.1.517467.3.579.2.08124-88-1519Ihpxxdd86006236 2.840.1.967915.3.579.2.48641-49-1410Rwjfvgk29061251 2.16.840.1.389409.3.579.2.51801-75-3286Miawqgo25312456 2.16840.1.689155.3.579.2.88167-86-9665Gvtxzed14064816 2.840.1.470404.3.579.2.34849-80-9799Rokccmu87885644 2.840.1.100286.3.579.2.50498-72-2685Jzfxuos86383290 2.840.1.729961.3.579.2.57297-06-4694Gzmmcxa15683216 2.840.1.059974.3.579.2.92429-37-6348Krbjscf31428613 2.0.1.571609.3.579.2.08044-01-6583Agjaaje72288513 2.840.1.463545.3.579.2.589851-22-7512Xuxqgsm94201847 2.0.1.293274.3.579.2.932024-31-6280Kpdlvkr30356984 2.840.1.947974.3.579.2.74512-85-1467Wllduie60195814 2.0.1.950244.3.579.2.70085-99-8174Ftfrkmi37396579 2.0.1.371101.3.579.2.86253-54-4105Keynyvq01620553 2.0.1.304040.3.579.2.08350-17-1846Wrkijhl340733470 2.840.1.801315.3.579.2.339036-90-2828Soykala515791511 2.840.1.188604.3.579.2.796966-55-5290Fpftuer430735542 2.840.1.237701.3.579.2.842973-97-6148Euvmoci397696707 2.840.1.048029.3.579.2.547342-35-6607Glwsnka670616895 2.840.1.362059.3.579.2.330057-32-0277Hsdlpqs061263170 2.16840.1.641404.3.579.2.639268-18-4803Gyrovgb35575474 2.0.1.845960.3.579.2.89952-14-5402Xfnsnbd61939099 2.0.1.189497.3.579.2.26672-67-7389Qhsliwp943462304 2..1.979335.3.579.2.513459-89-9573Fcqxvne725606438 2.0.1.086527.3.579.2.191301-17-7607Hvsrgbq495946639 2.0.1.891597.3.579.2.996418-36-4571Nikogdo358569513 2..1.247830.3.579.2.238328-04-4298Vevxfxa058876362 2.0.1.314669.3.579.2.525494-13-8287Fcpyfah545245993 2.0.1.484001.3.579.2.744521-50-1891Eszktad450984882 2.0.1.898067.3.579.2.772751-95-0667Lyqfnai225081484 2.0.1.336666.3.579.2.838342-56-1515Unrymvo140558304 2.840.1.191380.3.579.2.987605-84-7571Hcxqhjn91595162 2.840.1.904544.3.579.2.69666-38-0115Xoiqbtg37226811 2.16.840.1.121732.3.579.2.27260-63-7924Adrmmfr45427632 2.16.840.1.309294.3.579.2.42837-65-8139Wlddijo81140926 2.16.840.1.300568.3.579.2.62732-07-7266Hcuoyxv33839794 2.16.840.1.045272.3.579.2.08463-90-8109Xddiliq51089274 2.16.840.1.814556.3.579.2.92615-94-7710Yybglse99224286 2.16.840.1.679504.3.579.2.29269-73-9786Tzszhkv32088315 2..840.1.496983.3.579.2.23654-21-2975Fztuhpa31423094 2.16.840.1.636347.3.579.2.31164-66-7584Meufdiu37201914 2.16.840.1.121756.3.579.2.56969-09-1312Nwgveao37489908 2.16.840.1.126673.3.579.2.01386-59-2757Nzqrgrg21748753 2.16.840.1.155147.3.579.2.40158-85-2485Kxltvgr10485301 2.16.840.1.614104.3.579.2.26455-47-2378Rlmcwml14849878 2.16.840.1.332607.3.579.2.78963-00-3291Mkzhzdh81051984 2.16.840.1.947790.3.579.2.44416-76-8800Bmtphtd33154966 2.16.840.1.259135.3.579.2.28909-76-5774Fbbbqhe04215207 2.16.840.1.803055.3.579.2.84067-20-1582Jgxappo27409785 2.16.840.1.698135.3.579.2.505448-40-6210Zvqzwha01630625 2.840.1.133544.3.579.2.085955-38-2984Ovhnkhk24493514 2.840.1.421677.3.579.2.987135-26-8621Uouqbtl81753960 2.840.1.438851.3.579.2.493768-35-8472Bghvtyr18337722 2.840.1.919322.3.579.2.874737-28-9391Stwnxzv11994116 2.840.1.464053.3.579.2.445359-85-6563Omyzsgk89118648 2.0.1.873642.3.579.2.421348-04-8195Xxepkum97881747 2.840.1.552320.3.579.2.357092-14-0205Yujwedt16511668 2.0.1.835626.3.579.2.209316-83-5722Dqbrlyz3390212 2.840.1.966014.3.579.2.068582-02-8696Oolosdu5590750 2.840.1.100335.3.579.2.828389-50-9372Lljlfez4430578 2.840.1.942152.3.579.2.431449-99-1944Ulbbdvk2707676 2.840.1.390055.3.579.2.120763-68-8441Kllomwm7333452 2..840.1.079318.3.579.2.514408-94-9672Ycnzsna2286916 2..840.1.940026.3.579.2.161794-31-1289Qfvlejt1376764 2..840.1.661014.3.579.2.019456-28-7008PixsrziGSY07918705058-88-8732Mdiuuft Y7130463515-47-0307NgomxezXMYGF5033481Ylhkkts91946939 2..840.1.002340.3.579.2.531 Social History DateTypeDetailFacilityTobacco smoking status NHISTobacco smoking consumption unknownMetroHealth [facility] Heights Medical Centertart: 06-13-2023 End: 72-74-9820Hamdlvf of Social functionNOAL HealthcareStart: 06-13-2023 End: 60-72-4289Xrli Deprivation IndexGalion Community Hospitaltart: 23-37-0016Sdkxsxcp Score (1-100), lower number is lower voeo33Slenmp-XmxmtBluffton Hospital Digestive HealthStart: 67-06-0900Xoo Assigned At BirthNot on file [facility] Centertart: 07-10-2023 End: 74-29-2944Icznrekn to SARS-CoV-2 (event)Not [facility] Work Phone: Start: 09-06-2022 End: 97-31-4235Dyscvyz smoking statusNever smoked tobacco (finding)[facility]est[facility] HealthStart: 12-03-2023 End: 51-58-1741Phazfvmpg beverage intakeLifetime non-drinker (finding)[facility]IRMAR[facility] HealthcareStart: 75-39-1334Kuxbtka Commentcaffeine: noneNOMS HealthcareDo you belong to any clubs or organizations such as religious groups, unions, fraternal or athletic groups, or [...] got money to buy more.Never trueNOMS HealthcareSexual OrientationSuburban Community Hospital & [facility] Start: 05-23-2018 End: 29-48-8307NjdWndsph (finding)[facility] Community Hospitaltart: 05-22-2024 PregnancyNOMS HealthcareStart: 08-15-2024 End: 09-19-8339Aqqzpcl use and exposureSmokeless tobacco non-userGuernsey Memorial Hospital Work Phone: Start: 19-08-1034Hlx assigned at birthFemalFirelands Regional Medical Center South CampusStart: 99-38-8029Gkynjm identityIdentifies as female gender (finding)[facility] Work Phone: Start: 08-18-2024 End: 64-72-0712Rmigimxag beverage intakeEx-drinker (finding)[facility] Functional Status QcbnUkwugtgvpqTfvivkQvbkipan62-59-8951Wprgs score [AUDIT-C]0 08/15/2024 8:29 PM Isabella Salas RNUnWilson Health Work Phone: [phone]clfy Health Questionnaire 2 item (PHQ-2) [Reported][facility] Work Phone: [phone]) [phone]rohhf - suicide severity rating scale screener - recent [C-SSRS][facility]06-11-2025[place] - suicide severity rating scale screener - recent [C-SSRS][facility] Work Phone: [phone]fiejaz [facility]04-17-2025Functional [facility]12-13-2024Total score [AUDIT-C]1 02/15/2024 9:51 AM EST Mychart, GenericNOAL Healthcare 76-81-3500Xkg often do you have a drink containing alcohol?Monthly or less 02/15/2024 9:51 AM EST Mychart, Generic Monthly or lessNOMS Ngdwrcnnia64-87-7026 How many standard drinks containing alcohol do you have on a typical day?1 or 2 02/15/2024 9:51 AM EST Mychart, Generic 1 or 2NOMS Agywhkzjyq41-84-1849Jwz often do you have 6 or more drinks on 1 occasion?Never 02/15/2024 9:51 AM EST Mychart, Generic NeverNOChristian HospitalGuuoyxtkoc61-05-7113Sahhemaihj [facility]07-11-2024Functional [facility] ColumbusUn[facility] Health Work Phone: [facility] Work Phone: Clinical Notes 01-20-2021 to 01-12-2025 Note Date & WzrjWzqqScphsmve18-35-2889 NoteDischarge Instructions Given Worsening The following Patient Education Materials have been given to the patient: ~~ EducationMateDay[facility]11-10-2025 NoteProgress Note-Nurse Patient: INDU JORGENSEN Age: 29 years Sex: Female : 1995 Associated Diagnoses: None Author: Deanne Evans RN Basic Information /Para: Para Information: : 3 Para Term: 1 Para : 0 Para Abortions: 1 Para Livin. Date of study 01/12/2025. Providers Referring provider: yossi Dorsey provider: yossi meade Indication for procedure: hx of IVF. [...] Description: -- Comments: -- Entered by: Fabricio Furniture StainerAlysha on 08/14/2024 Other RENO Calculations for this [...] mild. Uterine activity: normal. Non-stress test interpretation: reactive.[facility]11-06-2025 NoteDischarge Instructions Given Worsening The following Patient Education Materials have been given to the patient: ~~ EducationMateriKettering Health [facility]11-06-2025 NoteProgress Note-Nurse Patient: INDU JORGENSEN Age: 29 [...] 79.0 % HI Lymph Auto 15.6 % [place] Auto 4.4 % Eos Auto 0.5 % Basophil Auto 0.5 % Neutro Absolute 9.4 E9/L HI Lymph Abso (more content not included)...[facility]11-03-2025 NoteDischarge Instructions Given Worsening The following Patient Education Materials have been given to the patient: ~~ EducationMaterialUniversity Hospitals [facility]11-03-2025 NoteProgress Note-Nurse Patient: INDU JORGENSEN Age: 29 years Sex: Female : 1995 Associated Diagnoses: None Author: Deanne Evans RN Basic Information /Para: Para Information: : 3 Para Term: 1 Para : 0 Para Abortions: 1 Para Livin. Date of study 01/05/2025. Providers Referring provider: yossi Dorsey provider: yossi meade Indication for procedure: IVF. Gestation: zimmerman. [...] Description: -- Comments: -- Entered by: Fabricio Furniture StainerAlysha on 08/14/2024 Other RENO Calculations for this : No additional RENO calculations have been recorded for this . Health Status Current medications: (Selected) Procedure Well Being Procedure Zimmerman Procedure was completed. movement: present. Heart tones: 130 bpm, reactive, baseline description was normal (110 - 160 bpm), baseline variability moderate, heart rate accelerations were present. Contractions: none. Uterine activity: normal. Non-stress test interpretation: reactive.[facility]10-30-2025 NoteDischarge Instructions Given Worsening The following Patient Education Materials have been given to the patient: ~~ EducationRegency [facility]10-30-2025 NoteProgress Note-Nurse Patient: INDU JORGENSEN Age: 29 [...] 79.0 % HI Lymph Auto 15.6 % [place] Auto 4.4 % Eos Auto 0.5 % Basophil Auto 0.5 % Neutro Absolute 9.4 E9/L HI Lymph Absolute 1.9 E9/L [place] Absolute 0.5 E9/L Eos Absolute 0.1 E9/L [...] 10:45 EDT Consent for (more content not included)...[facility]10-29-2025 History of Present illness Narrative* [...] Problems Diagnosis Date Noted Bipolar 1 disorder ([facility]) 11/13/2022 Anxiety 12/21/2022 Asthma ([facility]) 12/21/2022 Attention deficit hyperactivity disorder (ADHD), combined type 12/21/2022 Proteinuria 08/03/2010 PTSD (post-traumatic stress disorder) 12/21/2022 Bipolar affective disorder, current episode hypomanic ([facility]) 12/21/2022 Well woman exam with [...] medical problems Infertility counseling Low libido Miscarriage ([facility]) S/P laparoscopy Sciatica, unspecified side Seasonal allergic [...] bipolar disorder Infertility counseling Low libido M[facility] S/P laparoscopy Sciatica, unspecified side Seasonal allergic rhinitis, unspecified trigger Serous otitis media, unspecified chronicity, unspecified laterality URI (upper respiratory infection) 03/01/2019 [facility] - ER Social [...] 03/2020 lap, D [facility] C [facility] DILATION AND CURETTAGE OF UTERUS 03/07/2013 ; [...] ASSESSMENT & PLAN ICD-10-CM 1. Third trimester ([facility]) Z34.93 2. 33 weeks gestation of ([facility]) Z3A.33 POCT urinalysis dipstick manually resulted [...] behalf of: PATRICIA Nava documented in this encounterHannibal Regional HospitalXmwminpaup01-57-1892 NoteDischarge Instructions Given Worsening The following Patient Education Materials have been given to the patient: ~~ EducationRegency Hospital [facility] West10-27-2025 NoteProgress Note-Nurse Patient: INDU JORGENSEN Age: 29 [...] 79.0 % HI Lymph Auto 15.6 % [place] Auto 4.4 % Eos Auto 0.5 % Basophil Auto 0.5 % Neutro Absolute 9.4 E9/L HI Lymph Absolute 1.9 E9/L [place] Absolute 0.5 E9/L Eos Absolute 0.1 E9/L [...] has NST and BP (more content not included)...[facility]10-23-2025 NoteProgress Note-Nurse Patient: INDU JORGENSEN Age: 29 years Sex: Female : 1995 Associated Diagnoses: None Author: Neel WHITE, Amber Basic Information Gestational Age: Gestational Age (EGA) and RENO * Note: EGA calculated as of 12/25/2024 RENO: 02/12/2025 EGA*: 33 weeks Type: Authoritative Method Date: 08/14/2024 Method: Unknown (08/14/2024) Confirmation: Confirmed Description: -- Comments: -- Entered by: Fabricio Furniture StainerAlysha on 08/14/2024 Other RENO Calculations for this [...] Follow-up: movement instruction, Labor warnings. Follow-up: 12/30/2024 .[facility]10-23-2025 NoteDischarge Instructions Given Worsening The following Patient Education Materials have been given to the patient: ~~ EducationRegency Hospital [facility]10-20-2025 NoteDischarge Instructions Given Worsening The following Patient Education Materials have been given to the patient: ~~ [facility]10-20-2025 NoteProgress Note-Nurse Patient: INDU JORGENSEN Age: [...] 79.0 % HI Lymph Auto 15.6 % [place] Auto 4.4 % Eos Auto 0.5 % Basophil Auto 0.5 % Neutro Absolute 9.4 E9/L HI Lymph Absolute 1.9 E9/L [place] Absolute 0.5 E9/L Eos Absolute 0.1 E9/L [...] EDT Physician Order nst (more content not included)...[facility]10-16-2025 NoteDischarge Instructions Given Worsening The following Patient Education Materials have been given to the patient: ~~ EducationMaterialBo[facility]10-16-2025 NoteProgress Note-Nurse Patient: INDU JORGENSEN Age: 29 [...] Description: -- Comments: -- Entered by: Fabricio Furniture StainerAlysha on 08/14/2024 Other RENO Calculations for this : No additional RENO calculations have been recorded for this . Health Status Current medications: (Selected) Documented Medications Documented Iron Chews: 15 mg, Oral, Daily, Refills(s) [address] Tab: 20 mg = 1 tab(s), Oral, Refills(s) 0 19 ([place]): See Instructions, Refill(s) 0, Oral SEROquel 50 [...] that nst was reactive and BPP was 8/.[facility]10-14-2025 History of Present illness Narrative* Shari Gomez, VOLUNTEER PATIENT REPRESENTATIVE - 12/16/2024 9:30 AM EDT Reason for [...] medical problems Infertility counseling Low libido Miscarriage ([facility]) S/P laparoscopy Sciatica, unspecified side Seasonal allergic [...] nursing note reviewed. Exam conducted with a remote sensing technician present. Vitals: Estimated body mass index is 22.08 kg/m as calculated from the following: Height as of 04/14/24: 5' 6 . Weight as of this encounter: 136 lb 12.8 oz. BP: 108/52 No LMP recorded. Patient is . ASSESSMENT & PLAN ICD-10-CM 1. Third trimester ([facility]) Z34.93 2. 31 weeks gestation of ([facility]) Z3A.31 POCT urinalysis dipstick manually resulted 3. [...] bipolar disorder Infertility counseling Low libido Miscarriage ([facility]) S/P laparoscopy Sciatica, unspecified side Seasonal allergic rhinitis, unspecified trigger Serous otitis media, unspecified chronicity, unspecified laterality URI (upper respiratory infection) 03/01/2019 [facility] [place] - ER [3] [...] 03/2020 lap, D and C - [facility] [place] DILATION AND CURETTAGE OF UTERUS 03/07/2013 ; 08/13/2015 DILATION AND CURETTAGE OF UTERUS 10/27/2022 EGD 11/2023 HYSTEROSCOPY 06/12/2016 Laproscopy/hysterscopy [id number] Miscellaneous Notes* Telephone Encounter - Craolann Nolen RN - 12/15/2024 9:32 AM EDT Left VM at office requesting a call to Dr. Ortiz to briefly discuss the patient. [facility] Tele[facility] encounter Note* Telephone Encounter - Carolann Nolen RN - 12/15/2024 9:32 AM EDT Left VM at office requesting a call to Dr. Ortiz to briefly discuss the [facility]. [facility] NoteDischarge Instructions Given Worsening The following Patient Education Materials have been given to the patient: ~~ [facility] NoteProgress Note-Nurse Patient: INDU JORGENSEN Age: 29 years Sex: Female : 1995 Associated Diagnoses: None Author: Neel WHITE, Amber Basic Information Gestational Age: Gestational Age (EGA) and RENO * Note: EGA calculated as of 12/15/2024 RENO: 02/12/2025 EGA*: 31 weeks 4 days Type: Authoritative Method Date: 08/14/2024 Method: Unknown (08/14/2024) Confirmation: Confirmed Description: -- Comments: -- Entered by: Fabricio Furniture StainerAlysha on 08/14/2024 Other RENO Calculations for this [...] to return on for another NST and BPP.[facility]10-09-2025 NoteDischarge Instructions Given Worsening The following Patient Education Materials have been given to the patient: ~~ EducationM[facility]iK[facility]10-09-2025 NoteProgress Note-Nurse Patient: INDU JORGENSEN Age: 29 [...] Pending Diagnostic Test Results None Pharmacy Information [facility] 12/04/2024 14:34 EDT Physician Order nst 12/04/2024 [...] via phone Information Provided to Clinician updated education professor of reactive nst. 12/01/2024 8:40 EDT Monitoring [...] EDT Consent for Tr (more content not included)...[facility]10-07-2025 History of Present illness Narrative* Mario Alberto Ortiz MD - 12/09/2024 11:30 AM EDT Video Visit via Real-time Synchronous Audiovisual Provider Location: [facility]- MEDICINE AT [address] [address] Patient Location: Patient's home Patient Location Corporate Travel Expert: None Video Visit Consent Statement: I discussed [...] that there are some limitations compared to eqqk-vc-itoq evaluations. We elected to proceed. REASON FOR OFFICE VISIT: multiple medical issues HISTORY OF PRESENT ILLNESS: Indu Jorgensen is a pleasant 29 y.o. [id number] at 30w5d due on EstimatedDate of Delivery: [...] MORNING, Disp: 90 tablet, Rfl: 0 VIT 02-SAYY-JAIKX-DHA ORAL, Take by mouth., Disp: , Rfl: [...] psychiatric evaluation. 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 She gave me permission to discuss [...] you for allowing me to participate in [facility]. If there are any questions, please do not hesitate to call me. Sincerely, MARIO ALBERTO ORTIZ MD documented in this encounterRegional Medical Center10-06-2025 NoteDischarge Instructions Given Worsening The following Patient Education Materials have been given to the patient: ~~ [facility]-06-2025 NoteProgress Note-Nurse Patient: INDU JORGENSEN Age: 29 [...] Daily, # 30 tab(s), Refills(s) 0, Pharmacy: [facility][id number], 167, cm, 06/19/24 10:50:00 EDT, Height/Length Dosing, 48.9, kg, 06/19/24 10:50:00 EDT, Weight Dosing Documented Medications Documented Iron Chews: 15 mg, Oral, Daily, Refills(s) 0 19 ([place]): See Instructions, Refill(s) 0, Oral SEROquel 50 [...] and Plan Patient Education & Follow-up: movement instruction.[facility]10-02-2025 NoteDischarge Instructions Given Worsening The following Patient Education Materials have been given to the patient: ~~ EducationMaterialUniversity [facility]10-02-2025 NoteProgress Note-Nurse Patient: INDU JORGENSEN [...] Description: -- Comments: -- Entered by: Fabricio Furniture StainerAlysha on 08/14/2024 Other RENO Calculations for this [...] Education & Follow-up: movement instruction. Follow-up: 12/08/2024 .[facility]09-30-2025 History of Present illness Narrative* Dolores Caldwell NP - 12/02/2024 8:50 AM EDT Reason for [...] bipolar disorder Infertility counseling Low libido Miscarriage ([facility]) S/P laparoscopy Sciatica, unspecified side Seasonal allergic rhinitis, unspecified trigger Serous otitis media, unspecified chronicity, unspecified laterality URI (upper respiratory infection) 03/01/2019 [facility] - ER Social [...] 03/2020 lap, D [facility] C [facility] DILATION AND CURETTAGE OF UTERUS 03/07/2013 ; [...] nursing note reviewed. Exam conducted with a remote sensing technician present. Vitals: Estimated body mass index is 20.98 kg/m as calculated from the following: Height as of 04/14/24: 5' 6 . Weight as of this encounter: 130 lb. BP: 120/62 No LMP recorded. Patient is . ASSESSMENT & PLAN ICD-10-CM 1. Third trimester ([facility]) Z34.93 POCT urinalysis dipstick manually resulted 2. 29 weeks gestation of ([facility]) Z3A.29 3. Bipolar 1 disorder ([facility]) F31.9 4. PTSD (post-traumatic stress disorder) F43.10 [...] beneficial as well. Patient continues to consult M and has ultrasound scheduled this . Patient [...] of: Dolores Caldwell NP documented in this encounterRachel [place] [id number] NoteDischarge Instructions Given Worsening The following Patient Education Materials have been given to the patient: ~~ EducationMaterialUniversity [facility]09-29-2025 NoteProgress Note-Nurse Patient: INDU JORGENSEN Age: 29 years Sex: Female : 1995 Associated Diagnoses: None Author: Dereck WHITE, Magalie Maradiaga Basic Information Vital Signs (last 24 hrs) [...] Description: -- Comments: -- Entered by: Fabricio Furniture StainerAlysha on 08/14/2024 Other RENO Calculations for this [...] Education & Follow-up: movement instruction. Follow-up: 12/02/2024 .[facility]09-26-2025 NoteDischarge Instructions Given Worsening The following Patient Education Materials have been given to the patient: ~~ EducationM[facility]iK[facility]09-25-2025 NoteProgress Note-Nurse Patient: INDU JORGENSEN Age: 29 [...] Description: -- Comments: -- Entered by: Fabricio Furniture StainerAlysha on 08/14/2024 Other RENO Calculations for this [...] Education & Follow-up: movement instruction. Follow-up: 12/01/2024 .[facility]09-22-2025 NoteDischarge Instructions Given Worsening The following Patient Education Materials have been given to the patient: ~~ EducationRegency [facility]09-22-2025 NoteProgress Note-Nurse Patient: INDU JORGENSEN Age: 29 years Sex: Female : 1995 Associated Diagnoses: None Author: Gay Matias RN Basic Information Vital Signs 11/24/2024 7:44 EDT [...] QIDACHS, # 400 mL, Refills(s) 0, Pharmacy: [facility] #[id number], 167, cm, 06/19/24 10:50:00 EDT, Height/Length Dosing, 48.9, kg, 06/19/24 10:50:00 EDT, Weight Dosing MiraLax 3350 Oral Pwdr for Recon 249 gram: 17 gram, Oral, Daily, # 527 gram, Refills(s) 0, Pharmacy: [facility] #[id number], 168, cm, 09/15/19 7:03:00 EDT, Height/Length Measured, 52, kg, 09/15/19 7:03:00 EDT, Weight Measured Protonix 40 mg Tab-DR: 40 mg = 1 tab(s), Oral, Daily, # 30 tab(s), Refills(s) 0, Pharmacy: [facility] #[id number], 167, cm, 06/19/24 10:50:00 EDT, Height/Length Dosing, 48.9, kg, 06/19/24 10:50:00 EDT, Weight Dosing Reglan 5 mg Tab: 5 mg = 1 tab(s), Oral, QID, # 120 tab(s), Refills(s) 0, Pharmacy: [facility] #[id number], 167, cm, 06/19/24 10:50:00 EDT, Height/Length Dosing, 48.9, kg, 06/19/24 10:50:00 EDT, Weight Dosing Zofran ODT 4 mg Tab-Dis: 4 mg = 1 tab(s), Oral, q6hr, # 60 tab(s), Refills(s) 0, Pharmacy: [id number], 167, cm, 06/19/24 10:50:00 EDT, Height/Length Dosing, 48.9, kg, 06/19/24 10:50:00 EDT, Weight Dosing famotidine 20 mg Tab: 20 mg = 1 tab(s), Oral, BID, # 60 tab(s), Refills(s) 0, Pharmacy: [facility] #[id number], 167, cm, 06/19/24 10:50:00 EDT, Height/Length Dosing, 48.9, kg, 06/19/24 10:50:00 EDT, Weight Dosing naloxone 4 mg/0.1 mL nasal spray: 4 mg, Nasal, As Directed, for suspected overdose symptoms, # 1 kit(s), Refills(s) 0, Pharmacy: [facility], 167, cm, 06/19/24 10:50:00 EDT, Height/Length Dosing, 48.9, kg, 06/19/24 10:50:00 EDT, Weight Dosing oxyCODONE 5 mg Cap: 5 mg = 1 cap(s), Oral, q12hr, PRN for pain, # 6 cap(s), Refills(s) 0, Pharmacy:[facility], 167, cm, 06/19/24 10:50:00 EDT, Height/Length Dosing, 48.9, kg, 06/19/24 10:50:00 EDT, Weight Dosing Documented Medications Documented Fish Oil: 500 mg, Oral, Daily, Refill(s) 0 19 ([place]): See Instructions, Refill(s) 0, Oral SEROquel 50 [...] Education & Follow-up: movement instruction. Follow-up: 11/27/2024 .[facility]09-18-2025 NoteProgress Note-Nurse Patient: INUD JORGENSEN Age: 29 years Sex: Female : 1995 Associated Diagnoses: None Author: Magalie Harden RN Basic Information Vital Signs Vital Signs (last [...] and Plan Patient Education & Follow-up: movement instruction.[facility]09-16-2025 History of Present illness Narrative* [...] Problems Diagnosis Date Noted Bipolar 1 disorder ([facility]) 11/13/2022 Anxiety 12/21/2022 Asthma ([facility]) 12/21/2022 Attention deficit hyperactivity disorder (ADHD), combined type 12/21/2022 Proteinuria 08/03/2010 PTSD (post-traumatic stress disorder) 12/21/2022 Bipolar affective disorder, current episode hypomanic ([facility]) 12/21/2022 Well woman exam with [...] medical problems Infertility counseling Low libido Miscarriage ([facility]) S/P laparoscopy Sciatica, unspecified side Seasonal allergic [...] bipolar disorder Infertility counseling Low libido Miscarriage ([facility]) S/P laparoscopy Sciatica, unspecified side Seasonal allergic rhinitis, unspecified trigger Serous otitis media, unspecified chronicity, unspecified laterality URI (upper respiratory infection) 03/01/2019 [facility] - ER Social [...] 03/2020 lap, D and C [facility] [place] DILATION AND CURETTAGE OF UTERUS 03/07/2013 ; [...] nursing note reviewed. Exam conducted with a remote sensing technician present. Vitals: Estimated body mass index is 21.43 kg/m as calculated from the following: Height as of 04/14/24: 5' 6 . Weight as of this encounter: 132 lb 12.8 oz. BP: 120/64 No LMP recorded. Patient is . ASSESSMENT & PLAN ICD-10-CM 1. 27 weeks gestation of ([facility]) Z3A.27 POCT urinalysis dipstick manually resulted 2. Second trimester ([facility]) Z34.92 POCT urinalysis dipstick manually resulted 3. Hyperemesis of ([facility]) O21.0 4. resulting from in vitro fertilization in second trimester ([facility]) O09.812 US biophysical profile w non stress test 5. Breech presentation, single or unspecified fetus ([facility]) O32.1XX0 Return OB: Patient presents today for [...] ofmovement- pt to start NST/BPP now at [facility] Orders Placed This Encounter Procedures US biophysical profile w non stress test POCT urinalysis dipstick manually resulted Follow Up: Patient is to return to office in 2 week for routine OB appointment. Documented by Shari Gomez LPN on behalf of: Uriel Meade DO documented in this encounterHannibal Regional [id number] History of Present illness Narrative* Mario Alberto Ortiz MD - 11/07/2024 8:30 AM EDT Video Visit via Real-time Synchronous Audiovisual Provider Location: [facility]- MEDICINE AT [address] [address] Patient Location: Patient's home Patient Location Corporate Travel Expert: None Video Visit Consent Statement: I discussed [...] that there are some limitations compared to vunc-mz-qkzf evaluations. We elected to proceed. REASON FOR OFFICE VISIT: multiple medical issues HISTORY OF PRESENT ILLNESS: Indu Jorgensen is a pleasant 29 y.o. [id number] at 26w1d due on EstimatedDate of Delivery: [...] 90days., Disp: 90 tablet, Rfl: 0 VIT 54-ZLUP-MJLWE-DHA ORAL, Take by mouth., Disp: , Rfl: [...] MARIO ALBERTO ORTIZ MD documented in this encounterRegional Medical Center08-19-2025 History of Present illness Narrative* Shari Gomez, VOLUNTEER PATIENT REPRESENTATIVE - 10/21/2024 8:50 AM EDT Reason for [...] medical problems Infertility counseling Low libido Miscarriage ([facility]) S/P laparoscopy Sciatica, unspecified side Seasonal allergic [...] bipolar disorder Infertility counseling Low libido Miscarriage ([facility]) S/P laparoscopy Sciatica, unspecified side Seasonal allergic rhinitis, unspecified trigger Serous otitis media, unspecified chronicity, unspecified laterality URI (upper respiratory infection) 03/01/2019 [facility] - ER Social [...] 03/2020 lap, D and C [facility] [place] DILATION AND CURETTAGE OF UTERUS 03/07/2013 ; [...] nursing note reviewed. Exam conducted with a remote sensing technician present. Vitals: Estimated body mass index is 20.47 kg/m as calculated from the following: Height as of 04/14/24: 5' 6 . Weight as of this encounter: 126 lb 12.8 oz. BP: 110/68 No LMP recorded. Patient is . ASSESSMENT & PLAN ICD-10-CM 1. 23 weeks gestation of ([facility]) Z3A.23 POCT urinalysis dipstick manually resulted 2. Second trimester ([facility]) Z34.92 POCT urinalysis dipstick manually resulted 3. Hyperemesis of ([facility]) O21.0 4. resulting from in vitro fertilization in second trimester ([facility]) O09.812 5. Diabetes mellitus screening Z13.1 CBC Glucose tolerance, 1 hour CBC Glucose tolerance, 1 hour Return OB: Patient presents today for a routine obstetrics appointment. Patient is currently 23w5d . Patient states she is doing well but has complaints of being tired due to current . Patient has verbalizes frequent movement. labor precautions was discussed/given. 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 Orders Placed This Encounter Procedures CBC Glucose tolerance, 1 hour POCT urinalysis dipstick manually resulted Follow Up: Patient is to return to office in 4 week for routine OB appointment. Documented by Shari Gomez LPN on behalf of: Uriel Meade DO documented in this encounterHannibal Regional [id number] History of Present illness Narrative* Krupa Jones MD - 10/02/2024 2:30 PM EDT REASON FOR OFFICE VISIT: multiple medical issues HISTORY OF PRESENT ILLNESS: Indu Jorgensen is a pleasant 29 y.o. [id number] at 21w0d due on EstimatedDate of Delivery: [...] 90days., Disp: 90 tablet, Rfl: 0 VIT 59-JJOB-XJCOS-DHA ORAL, Take by mouth., Disp: , Rfl: [...] allowing me to participate in Indu Jorgensen [facility]. If there are any questions, please do not hesitate to call me. Sincerely, KRUPA JONES MD documented in this encounterRegional Medical Center07-31-2025 Miscellaneous Notes* Telephone Encounter - Lexi Maya [...] need with justthe abdomen. documented in this encounterRegional Medical Center07-31-2025 Telephone encounter Note* Telephone Encounter - Lexi [...] the imaging they need with justthe abdomen. [facility] [employer] [id number] History of Present illness Narrative* Akua Streeter LPN - 09/25/2024 8:40 AM EDT Reason for [...] medical problems Infertility counseling Low libido Miscarriage ([facility]) S/P laparoscopy Sciatica, unspecified side Seasonal [...] bipolar disorder Infertility counseling Low libido Miscarriage ([facility]) S/P laparoscopy Sciatica, unspecified side Seasonal allergic rhinitis, unspecified trigger Serous otitis media, unspecified chronicity, unspecified laterality URI (upper respiratory infection) 03/01/2019 [facility] - ER Social [...] 03/2020 lap, D and C [facility] DILATION AND CURETTAGE OF UTERUS 03/07/2013 ; [...] nursing note reviewed. Exam conducted with a remote sensing technician present. Vitals: Estimated body mass index is 19.69 kg/m as calculated from the following: Height as of 04/14/24: 5' 6 . Weight as of this encounter: 122 lb. BP: 114/66 No LMP recorded. Patient is . ASSESSMENT & PLAN ICD-10-CM 1. Second trimester ([facility]) Z34.92 POCT urinalysis dipstick manually resulted 2. 20 weeks gestation of ([facility]) Z3A.20 POCT urinalysis dipstick manually resulted Patient [...] eating disorder diagnosis. 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 Patient to return to clinic in 4 weeks. Documented by Akua Streeter LPN on behalf of: Uriel Meade DO documented in this encounterHannibal Regional [id number] Miscellaneous Notes* Telephone Encounter - Lexi Maya RN - 09/17/2024 1:15 PM EDT Notified patient that Dr Ortiz ordered an MRI of the abdomen and chest to rule out a hernia. Provided number to schedule. Operations Research Engineer also encouraged patient to make GI appointment. Patient verbalized understanding and stated she will schedule it. documented in this encounterRegional Medical Center07-16-2025 Telephone encounter Note* Telephone Encounter - Lexi Maya RN - 09/17/2024 1:15 PM EDT Notified patient that Dr Ortiz ordered an MRI of the abdomen and chest to rule out a hernia. Provided number to schedule. Operations Research Engineer also encouraged patient to make GI appointment. Patient verbalized understanding and stated she will schedule it. [facility]07-14-2025 History of Present illness Narrative* Aisha Costa MD - 09/15/2024 2:16 PM EDT CGM Blood glucose at goal. There was no of hypoglycemia. No need for further monitoring. Recommend timed glucose challenge testing at 24-28 weeks gestation. Aisha Costa MD Maternal- Medicine [facility] [address] [facility] [address] [place] [address] documented in this encounterRegional Medical Center07-09-2025 History of Present illness Narrative* Maria T [...] by mouth in the morning. blood-glucose sensor ([employer]STYLE PABLITO 3 PLUS SENSOR) device Wear for [...] for 90 days. 90 tablet 0 VIT 89-KILU-OPGQQ-DHA ORAL Take by mouth. 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 Yes Current Exercise program light duty Who prepares the meal Who purchase food at your home? pt Equipment use for cooking/food storage has all Food Assistance(Ex.WIC, Food [place]) declined Dining out Yes 1 time per [...] by patient's food recall. Estimated energy needs: 8322-0099 kcal (MSJ using 1.2 AF and additional [...] protein powders and provided with handout on [employer] nutrition shakes to help personalize and cut down on costs. Briefly reviewed CGM download, which did show some episodes of low blood sugars and she confirmed feeling symptoms of lows as well. We reviewed treatment of low blood sugars. Will send all handouts through [employer] and encouraged to reach out with further questions. Given her history, she may benefit from further evaluation from a nutrition professional who specializes in the intersection of mental health and food. Face to face time 60 minutes. documented in this encounterRegional Medical Center07-01-2025 History of Present illness Narrative* Lexi Maya [...] risk Have you been seen here at [facility] in a previous ? No. Saw [facility] this at [facility] during an emergency room visit Recent ER visits or hospitalizations? Patient went to [facility] a few weeks ago for chestpain and emesis occurences. Bring blood sugar log or meter with you today? (Please bring them with you for every visit at [facility]) NA Flu vaccine (Jan-May)? NA Any concerns [...] hours as needed., Disp: , Rfl: VIT 17-WWHS-JDWLT-DHA ORAL, Take by mouth., Disp: , Rfl: [...] Resource Strain: Low Risk (08/15/2024) Received from [facility] Overall Financial Resource Strain (CARDIA) Difficulty of Paying Living Expenses: Not hard at all Food Insecurity: No Food Insecurity (09/02/2024) Hunger Screening Food Insecurity - Worry: Never True Food Insecurity - Inability: Never True Transportation Needs: No Transportation Needs (08/15/2024) Received from [facility] PRAPARE - Transportation Lack of Transportation (Medical): No Lack of Transportation (Non-Medical): No Physical Activity: Insufficiently Active (07/06/2024) Received from [facility] Exercise Vital Sign Days of Exercise per Week: 1 day Minutes of Exercise per Session: 30 min Stress: Stress Concern Present (02/15/2024) [facility] [employer] [place] of Occupational Health - Occupational Stress Questionnaire Feeling of Stress : Very much Social Connections: Moderately Isolated (02/15/2024) [facility] Social Connection and Isolation Panel [NHANES] Frequency of Communication with Friends and Family: More than three times a week Frequency of Social Gatherings with Friends and Family: Never Attends [employer] Services: Never Active Member of Clubs or Organizations: No Attends Club or Organization Meetings: Never Marital Status: Interpersonal Safety: Not At Risk (08/15/2024) Received from [facility] Humiliation, Afraid, Rape, and Kick questionnaire Fear of Current or Ex-Partner: No Emotionally Abused: No Physically Abused: No Sexually Abused: No Housing Instability: Low Risk (07/07/2024) [facility] Housing Stability Vital Sign Unable to [...] 90 tablet; Refill: 0 - [facility] [place], [place]; Future - Ultrasound abdomen complete; Future [...] Folate; Future - [facility] [place], [place] - ; Future 2. resulting from [...] 90 tablet; Refill: 0 - [facility] [place], [place]; Future - Ultrasound abdomen complete; Future [...] Vitamin B12; Future - Folate; Future - [facility] [place], [place] - ; Future 4. Cyclical vomiting [...] consultation was also initiated. Referral to the [facility] center was given as the patient is [...] the patient. 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 If there is a [...] 8. Bipolar disease 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 trimester ([facility]) 9. Anxiety during I reviewed with the [...] Alberto Ortiz MD, FACOG (she/hers) Maternal- Medicine [facility] [address] [place] [address] This document was created with [employer] technology. Though I make every effort to review the dictation as it is transcribed, on occasion the spoken word can be misinterpreted by the technology leading to inappropriate words, phrases, or sentences. This note is addressed to the requesting provider as a consultation for clinical guidance. Specificmedical abbreviations are occasionally used and those are generally approved by the [place]?Board of?Obstetrics and?Gynecology?as well as?Alex s abbreviations. The above plan of care was based solely on the diagnoses for which a consultation was requested. ?More frequent testing may be indicated based on her other medical/obstetrical conditions. The management of other or medical conditions is beyond the scope of requested consultation and will c ontinue to be followed by the primary materials scheduler or primary care provider. Note to patient: The Century Cures Act makes medical notes like [...] CGM and questions answered. documented in this encounterRutland Regional Medical CenterBitspark06-24-2025 History of Present illness Narrative* Shari Gomez [...] Problems Diagnosis Date Noted Bipolar 1 disorder ([facility]) 11/13/2022 Anxiety 12/21/2022 Asthma ([facility]) 12/21/2022 Attention [...] medical problems Infertility counseling Low libido Miscarriage ([facility] S/P laparoscopy Sciatica, unspecified side Seasonal allergic [...] bipolar disorder Infertility counseling Low libido Miscarriage ([facility] S/P laparoscopy Sciatica, unspecified side Seasonal allergic rhinitis, unspecified trigger Serous otitis media, unspecified chronicity, unspecified laterality URI (upper respiratory infection) 03/01/2019 [facility] - ER Social [...] 03/2020 lap, D and C [facility] DILATION AND CURETTAGE OF UTERUS 03/07/2013 ; [...] nursing note reviewed. Exam conducted with a remote sensing technician present. Vitals: Estimated body mass index is [...] gonorrhea DNA probe, direct 3. Second trimester ([facility]) Z34.92 Alpha fetoprotein, maternal Alpha fetoprotein, maternal 4. 15 weeks gestation of ([facility]) Z3A.15 POCT urinalysis dipstick manually resulted 5. Screening, , for anatomic survey ([facility]) Z36.89 CANCELED: US OB 14+ weeks anatomy scan CANCELED: US OB 14+ weeks anatomy scan Return OB/Annual Exam: Patient presents today for a annual exam/routine obstetrics appointment. Patient is currently [id number]. Patient states she is doing well but [...] of: Uriel Meade DO documented in this encounterHannibal Regional [id number] NoteDischarge Summary SHORT STAY SUMMARY: 08/14/2024 The patient is a 28-year-old 3, para 1 white female who presented to the Emergency Room at 14 weeks' gestation, a patient of Dr. Meade. She had been having nausea and vomiting. She had been seen at [facility] and then at [facility] Room and in followup with her regular RN INTERNSHIP Dr. Meade. She presents with continued nausea [...] problems. Saundra Verdugo M.D. ca Dictated: 08/16/2024 [id number] Transcribed: 08/17/2024[facility] CenterComment on above:Result Comment: Electronically Signed By: Lucina ELLISON, Saundra Peace\.br\Date and Time Signed: 08/20/24 07:19 [id number] Plan of care note* Care Plan - Isabella Harris RN - 08/15/2024 9:46 PM EDT Problem: Antepartum Goal: Maintain as long as maternal and/or condition is stable Outcome: Progressing Goal: Avoid/minimize constipation Outcome: Progressing Goal: No decrease in circulation/VTE Outcome: Progressing Goal: FHR remains reassuring Outcome: Progressing Goal: Minimize anxiety/maximize coping Outcome: Progressing [facility] Work Phone: 1(169) 182-543006-13-2025 Miscellaneous Notes* Care Plan - Isabella Harris [...] 08/15/2024 6:09 PM EDT documented in [facility]Gu[facility] Work Phone: 1(109) 103-506906-13-2025 Hospital Discharge instructions* Discharge Instr - AVS [...] or unable to cope documented in this encounterUn[facility] Work Phone: 1(628) 698-659206-13-2025 Nurse Note* Brittany Diez RN - 08/15/2024 7:31 PM EDT Patient wants to constantly be in the shower.Requesting her cream [facility] Work Phone: [phone]) 714-652706-13-2025 Nurse Note* Brittany Diez RN - 08/15/2024 7:31 PM EDT Patient wants to constantly be in the shower.Requesting her cream [facility] documented in this encounterUnWilson Health Work Phone: [phone]) 120-201206-13-2025 Plan of care note* Care Plan - [...] might have kept half of it down. [facility] Work Phone: [phone]) 181-395406-13-2025 grain manager Note* Significant Event - Krupa Hathaway MD - [...] Engel MD at 08/15/2024 6:09 PM EDT [facility] Work Phone: 1(164) 589-968606-13-2025 Consult note* Shanel Hollins MD - 08/15/2024 8:06 AM EDT 08/15/2024 Indu Jameel [facility] CONSULT NOTE HPI: Indu Jorgensen is a [...] Assessment & Plan 14 weeks gestation of ([facility]) Patient was seen and evaluated with Dr. Jaime Hollins MD Maternal Medicine [1] Patient Active Problem List Diagnosis 14 weeks gestation of ([facility]) [2] Past Surgical History: Procedure Laterality Date [...] Sandoval MD Maternal Medicine Director of Intervention [facility] Work Phone: 1(188) 662-732806-13-2025 Consult note* Shanel Hollins MD - 08/15/2024 8:06 AM EDT 08/15/2024 Indu Jorgensen [facility] CONSULT NOTE HPI: Indu Jorgensen is a [...] Assessment & Plan 14 weeks gestation of ([facility]) Patient was seen and evaluated with Dr. Jaime Hollins MD Maternal Medicine [1] Patient Active Problem List Diagnosis 14 weeks gestation of ([facility]) [2] Past Surgical History: Procedure Laterality Date [...] Medicine Director of Intervention documented in this [facility] Work Phone: [phone]) 723-863006-13-2025 History and physical note* Rose Claire MD [...] Insecurity: No Food Insecurity (07/07/2024) Received from [facility] Hunger Vital Sign Worried About Running Out of Food in the Last Year: Never true Ran Out of Food in the Last Year: Never true Transportation Needs: No Transportation Needs (07/07/2024) Received from [facility] PRAPARE - Transportation Lack of Transportation (Medical): No Lack of Transportation (Non-Medical): No Physical Activity: Insufficiently Active (07/06/2024) Received from [facility] Exercise Vital Sign Days of [...] Sandoval MD Maternal Medicine Director of Intervention [facility] Work Phone: 1(532) 954-408806-13-2025 History and physical note* Rose Claire MD [...] Insecurity: No Food Insecurity (07/07/2024) Received from [facility] Hunger Vital Sign Worried About Running Out of Food in the Last Year: Never true Ran Out of Food in the Last Year: Never true Transportation Needs: No Transportation Needs (07/07/2024) Received from [facility] PRAPARE - Transportation Lack of Transportation (Medical): No Lack of Transportation (Non-Medical): No Physical Activity: Insufficiently Active (07/06/2024) Received from [facility] Exercise Vital Sign Days of [...] Medicine Director of Intervention documented in this encounterUnWilson Health Work Phone: [phone]) 856-594006-12-2025 Emergency department Triage note* Wilian Loredo RN [...] states that she is 14 weeks . [facility] Work Phone: [phone]) 234-590206-12-2025 Emergency department Note* Wilian Loredo RN - [...] is 14 weeks . documented in this encounterUnWilson Health Work Phone: [phone]) 863-392806-12-2025 Hospital Discharge instructions Patient Education 08/14/2024 19:02:28 [...] medicines. ?Antacids. ?Antidepressants. ?Antihistamines. ?Medicines for migraines. ?Zbcf-ivl-ouncwrz pain medicine. ?Over-the counter diet supplements. Severe nausea and vomiting may require you to stay at the hospital. You may need IV fluids to prevent or treat dehydration. Follow these instructions at home: During an episode Take qoiz-sex-utzvqvo and prescription medicines only as told by [...] avoid spicy or fatty foods, such as nigerien fries and pizza. General instructions Monitor your [...] provider. Document Revised: 09/28/2021 Document Reviewed: 09/28/2021 Mobile Location, IP Patient Education 2023 [employer] Follow Up Care 08/14/2024 01:38:58 With:Uriel MEADE Address: [address] , [place] [id number] Business (1) When:08/26/2024 Comments:Call for any problems. [facility] [phone] NoteDischarge Instructions Given Worsening The following Patient Education Materials have been given to the patient: ~~ [facility] NoteDischarge Instructions Given Worsening The following Patient Education Materials have been given to the patient: ~~ [facility]06-12-2025 Evaluation + Plan note Extracted from:Title:ED [...] care of the patient was transitioned to hi upon shift change to follow-up with reevaluation [...] Verdugo who admitted patient to the OB. [facility] 06-12-2025 NoteProgress Note-Nurse Patient: INDU ST [...] with Dr Meade. States chest pain is constant.[facility]05-28-2025 History of Present illness Narrative* [...] Problems Diagnosis Date Noted Bipolar 1 disorder ([facility] 11/13/2022 Anxiety 12/21/2022 Asthma 12/21/2022 Attention deficit hyperactivity disorder (ADHD), combined type ([facility]) 12/21/2022 Proteinuria 08/03/2010 PTSD (post-traumatic stress disorder) ([facility]) 12/21/2022 Bipolar affective disorder, current episode hypomanic ([facility]) 12/21/2022 Well woman exam with routine gynecological exam 03/19/2023 Myalgia 02/18/2024 Fallopian tube disorder 03/13/2024 Anovulation 03/13/2024 Female infertility 03/13/2024 Resolved Ambulatory Problems Diagnosis Date Noted No Resolved Ambulatory Problems Past Medical History: Diagnosis Date Abnormal uterine bleeding (AUB) ADHD (attention deficit hyperactivity disorder) ([facility]) Amenorrhea Bilateral sacroiliitis Cervical cancer ([facility]) Chronic fatigue Chronic rhinitis Chronic vaginitis Depression with anxiety Endometriosis Gynecological disorder History of medical problems Infertility counseling Low libido Miscarriage S/P laparoscopy Sciatica, unspecified side Seasonal allergic rhinitis, unspecified trigger Serous otitis media, unspecified chronicity, unspecified laterality URI (upper respiratory infection) 03/01/2019 HISTORY PAST MEDICAL HISTORY SOCIAL HISTORY Past Medical History: Diagnosis Date Abnormal uterine bleeding (AUB) ADHD (attention deficit hyperactivity disorder) ([facility]) Amenorrhea Bilateral sacroiliitis Cervical cancer ([facility]) Chronic fatigue Chronic rhinitis Chronic vaginitis Depression with anxiety Depression/Anxiety Endometriosis Gynecological disorder History of medical problems Question of bipolar disorder Infertility counseling Low libido Miscarriage S/P laparoscopy Sciatica, unspecified side Seasonal allergic rhinitis, unspecified trigger Serous otitis media, unspecified chronicity, unspecified laterality URI (upper respiratory infection) 03/01/2019 [facility] - ER Social [...] 03/2020 lap, D and C - [facility] DILATION AND CURETTAGE OF UTERUS 03/07/2013 ; [...] nursing note reviewed. Exam conducted with a remote sensing technician present. Vitals: Estimated body mass index is [...] or undercooked meat, and stay away from [facility]. Patient has been consulted regarding any further do's and don'tsof . Patient voiced understanding and all questions and concerns were answered. Pt to be re ferred to [facility] for high risk- IVF, hyperemesis, mental health disorders. Pt to start zofran pump, losing appetite and or constant vomiting. Pt sees psychiatrist tomorrow, PCP wanted to prescribe clonapin, category D. Pt to see [facility] for medication management, pt advised to come off of seroquel. Rx forbuspar faxed to pharmacy Orders Placed This Encounter Procedures POCT urinalysis dipstick manually resulted Follow Up: Patient is to return in 4 weeks for routine OB appointment. Documented by Shari Gomez LPN on behalf of: Uriel Meade DO documented in this encounterHannibal Regional [id number] History of Present illness Narrative* Clementina López [...] Current 2 SAB 2016 1 Term 12/13/12 8 lb 12 oz F Vag-Spont [place] Current Medications: has a current medication list which includes the following prescription(s): alprazolam, aripiprazole, breyna, cholecalciferol, fish oil concentrate, metoclopramide, ondansetron odt, vitamins, and sucralfate. Medical History: Active Ambulatory Problems Diagnosis Date Noted Bipolar 1 disorder ([facility]) 11/13/2022 Anxiety 12/21/2022 Asthma 12/21/2022 Attention deficit hyperactivity disorder (ADHD), combined type ([facility] 12/21/2022 Proteinuria 08/03/2010 PTSD (post-traumatic stress disorder) ([facility]) 12/21/2022 Bipolar affective disorder, current episode hypomanic ([facility]) 12/21/2022 Well woman exam with routine gynecological exam 03/19/2023 Myalgia 02/18/2024 Fallopian tube disorder 03/13/2024 Anovulation 03/13/2024 Female infertility 03/13/2024 Resolved Ambulatory Problems Diagnosis Date Noted No Resolved Ambulatory Problems Past Medical History: Diagnosis Date Abnormal uterine bleeding (AUB) ADHD (attention deficit hyperactivity disorder) ([facility]) Amenorrhea Bilateral sacroiliitis Cervical cancer ([facility]) Chronic fatigue Chronic rhinitis Chronic [...] 03/2020 lap, D and C [facility] DILATION AND CURETTAGE OF UTERUS 03/07/2013 ; [...] or undercooked meat, and stay away from [facility]. Patient has also been advised to not [...] by: Clementina López LPN documented in this encounterHannibal Regional [id number] NoteDischarge Summary Admission and Discharge Information Admitting [...] Fish Oil, 500 mg, Oral, Daily 19 ([place]), See Instructions Follow-up With When Contact Information Uriel MEADE Within [address] to [address] [place] [address]- Business (1) Additional Instructions: Call for followup appointment Carolyne Collazo Within 7 to [address] [place] [phone]- Business (1) Additional Instructions: Call for followup appointment Patient Education Hyperemesis Gravidarum Esophagitis Cannabinoid Hyperemesis Syndrome Attestation I spent 40 minutes on care including chart review, order, documentation, exam, discussion of care plan with OB, patient, and her .[facility] CenterComment on above:Result Comment: Electronically Signed By: Josh Gilbert III, DO\Date and Time Signed: 07/06/24 20:23 [id number] History of Present illness Narrative* Shari Gomez, VOLUNTEER PATIENT REPRESENTATIVE - 06/24/2024 3:20 PM EDT Reason for Appointment: Patient ID: Indu Jorgensen is a 28 y.o. female who presents for ER Follow-up (Pt present today for an ER follow up. Pt was seen at [facility] on 06/19/2024 for hyperemesis w/.) Patient presents [...] Noted Bipolar 1 disorder ([facility]) 11/13/2022 Anxiety 12/21/2022 Asthma 12/21/2022 Attention deficit hyperactivity disorder (ADHD), combined type ([facility]) 12/21/2022 Proteinuria 08/03/2010 PTSD (post-traumatic stress disorder) ([facility]) 12/21/2022 Bipolar affective disorder, current episode hypomanic ([facility]) 12/21/2022 Well woman exam with routine gynecological exam 03/19/2023 Myalgia 02/18/2024 Fallopian tube disorder 03/13/2024 Anovulation 03/13/2024 Female infertility 03/13/2024 Resolved Ambulatory Problems Diagnosis Date Noted No Resolved Ambulatory Problems Past Medical History: Diagnosis Date Abnormal uterine bleeding (AUB) ADHD (attention deficit hyperactivity disorder) ([facility]) Amenorrhea Bilateral sacroiliitis Cervical cancer (CMS/HCC) Chronic [...] unspecified laterality URI (upper respiratory infection) 03/01/2019 [facility] - ER Social [...] 03/2020 lap, D and C - [facility] DILATION AND CURETTAGE OF UTERUS 03/07/2013 ; [...] nursing note reviewed. Exam conducted with a remote sensing technician present. Vitals: Estimated body mass index is [...] of: Uriel Meade DO documented in this encounterHannibal Regional [id number] Hospital Discharge instructions Patient Education 06/21/2024 15:05:42 [...] or martín tea. Taking prescription medicine or pfyn-ziy-fzhvdnx medicine as told by your health care [...] sour. These include lemonade, martín oliverio, lemon chitina soda, ice water, and sparkling water. Things [...] your appetite or trigger nausea. General instructions [place] your teeth or use a mouth rinse after meals. Take aopy-xac-jqzgpjq and prescription medicines only as told by [...] provider. Document Revised: 09/13/2020 Document Reviewed: 09/13/2020 Mobile Location, IP Patient Education 2023 [employer]. 06/21/2024 15:05:31 Esophagitis Esophagitis Esophagitis is inflammation [...] Follow these instructions at home: Medicines Take fvrh-jzw-rdeldrc and prescription medicines only as told by [...] powder, vinegar, hot sauces, and barbecue sauce. ?Bourbon fruit juices and citrus fruits, such as oranges, brooke, and limes. ?Tomato-based foods, such as red sauce, chili, salsa, and pizza with red sauce. ?Fried and fatty foods, such as donuts, nigerien fries, potato chips, and high-fat dressings. ?High-fat [...] provider. Document Revised: 08/30/2020 Document Reviewed: 08/30/2020 Mobile Location, IP Patient Education 2023 [employer]. 06/21/2024 15:05:28 Cannabinoid Hyperemesis Syndrome Cannabinoid Hyperemesis [...] as coffee and soda. Take and apply gthx-dzc-jnyjchv and prescription medicines only as told by [...] provider. Document Revised: 06/19/2022 Document Reviewed: 06/19/2022 Mobile Location, IP Patient Education 2023 [employer]. Follow Up Care 06/19/2024 10:48:26 With:Uriel MEADE Address: [address] [place] [address]- [employer] (1) When:3 to 5 days Comments:Call for followup appointment With:Carolyne Collazo Address: [address] [place] [address]- [employer] (1) When:7 to 10 days Comments:Call for followup appointment [facility] 04-19-2025 Elly Understands Medication Education Yes Joel Medication Education [facility]Al[facility]Med[facility]04-[facility] NoteProgress Note-Physician Assessment/Plan Patient is a 28-year-old female (on third in first trimester. Reports 1 live and 1 previous miscarriage) who was admitted with intractable nausea and vomiting likely secondary toesophagitis/gastritis with associated epigastric and esophageal pain. Admitted 06/19/24 RN INTERNSHIP consulted for assistance in management 1. Cannabis [...] Basic Metabolic Panel CBC w/ Auto Diff [facility] Care/Day Moderate 35 Minutes 94538 2. Esophagitis (K20.90: Esophagitis, unspecified without bleeding) Famotidine, Protonix IV twice daily, Carafate 4 times daily ACHS. As needed Dilaudid Ordered: Basic Metabolic Panel CBC w/ Auto Diff eGFR Lipase Level [facility] Care/Day Moderate 35 Minutes 47602 3. Intractable vomiting (R11.10: Vomiting, unspecified) See above management. Ordered: [facility] Care/Day Moderate 35 Minutes 10982 4. First trimester (Z34.91: Encounter for supervision of normal , unspecified, first trimester) Defer management to OB. Underwent transvaginal ultrasound and OB following labs. 5. 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 Had extensive discussion and saw patient at [...] -- -- lidocaine to (more content not included)...[facility] CenterComment on above:Result Comment: Electronically Signed By: Josh Gilbert III, DO\.br\Date and Time Signed: 06/21/24 15:01 [id number] Evaluation + Plan note Extracted from:Title:APSO NoteAuthor:Josh Gilbert III, DO.Date:06/21/24 Patient is a 28-year-old fem oliverio (on third in first trimester. Reports 1 live and 1 previous miscarriage) who was admitted with intractable nausea and vomiting likely secondary to esophagitis/gastritis with associated epigastric and esophageal pain. Admitted 06/19/24 RN INTERNSHIP consulted for assistance in management 1. Cannabis [...] Diff [facility] Care/Day Moderate 35 Minutes 49845 2. Esophagitis (K20.90: Esophagitis, unspecified without bleeding) Famotidine, Protonix IV twice daily, Carafate 4 times daily ACHS. As needed Dilaudid Ordered: Basic Metabolic Panel CBC w/ Auto Diff eGFR Lipase Level [facility] Care/Day Moderate 35 Minutes 30177 3. Intractable vomiting (R11.10: Vomiting, unspecified) See above management. [facility] Moderate 35 Minutes 50079 4. First trimester (Z34.91: Encounter for supervision of normal , unspecified, first trimester) Defer management to OB. Underwent transvaginal ultrasound and OB following labs. 5. 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 Reports 1 live and 1 previous miscarriage) who was admitted with intractable nausea and vomiting likely secondary to esophagitis/gastritis with associated epigastric and esophageal pain. Admitted 06/19/24 RN INTERNSHIP consulted for assistance in management 1. Esophagitis (K20.90: Esophagitis, unspecified without bleeding) Carafate suspension 4 times daily ACHS, famotidine 20 mg IV twice daily Ordered: Basic Metabolic Panel CBC w/ Auto Diff [facility] Care/Day Moderate 35 Minutes 46229 2. Intractable vomiting (R11.10: Vomiting, unspecified) As needed Zofran. Trialing Reglan IV once. Do not have B6 or Unisom available on our formulary. Appreciate RN INTERNSHIP opinion on this. LR 500 mL bolus this morning and maintain LR at 90 mL/h. Clear liquid advance to regular diet at patient's request. She will trial regular diet as tolerated. Ordered: [facility] Care/Day Moderate 35 Minutes 84058 3. First trimester (Z34.91: Encounter for supervision of normal , unspecified, first trimester) RN INTERNSHIP to manage. Patient reported greenish vaginal discharge. Deferred to RN INTERNSHIP for assessment/management of this. Underwent transvaginal ultrasound this a.m. :Shows early single live intrauterine gestation. Composite ultrasound age 6 weeks, 2 days which corresponds to estimated gestational age by LMP. Subchorionic hemorrhage minimally changed from 06/16/2024 and measuring up to 2.8 cm. History of IVF with embryo transfer on 05/27/2024. 4. On deep vein thrombosis (DVT) prophylaxis (Z79.899: Other chcf (current) drug therapy) SCDs bilateral lower extremities. [...] patient on clear liquid diet. I did counselor education professor patient that I do not think is [...] deep vein thrombosis (DVT) prophylaxis (Z79.899: Other chcf (current) drug therapy) SCD, early ambulation Orders: [...] w/ Indices Clear Liquid Diet Consult to Security Installation Sales Technician Magnesium Level Notify Provider Vital Signs Notify Provider Vital Signs US Transvaginal Vital Signs Weight Anticipated stay less than 2 midnights. Patient will be observation status. Extracted from:Title:ED NoteAuthor:Nithin Carbone, Rashid:06/19/24 1. Esophagitis (K20.90: Esop hagitis, unspecified [...] care of the patient was transitioned to hi upon shift change for consult RN INTERNSHIP and admission to the hospital. The patient [...] to his services with consult Dr. Meade. [facility] 04-19-2025 NoteProgress Note-Physician Patient: INDU ST [...] CT of the abdomen / SNOMED CT 8536678880 / Confirmed Abnormal uterine bleeding. / SNOMED CT 3525658096 / Confirmed Amenorrhea / SNOMED CT 94549330 / Confirmed Anemia / SNOMED CT 086059235 / Confirmed Anxiety / SNOMED CT 19558983 / Confirmed Asthma / SNOMED CT 553576235 / Confirmed Asthma / SNOMED CT 801037783 / Confirmed Attention deficit hyperactivity disorder / SNOMED CT 5289620673 / Confirmed Benign neoplasm of pituitary gland / SNOMED CT 421504659 / Confirmed Bilateral arthritis of sacroiliac joint / SNOMED CT 0230601092 / Confirmed Bipolar disorder / SNOMED CT 75922336 / Confirmed Chronic rhinitis / SNOMED CT 177617059 / Confirmed Chronic vaginitis / SNOMED CT 39419278 / Confirmed Depressive disorder / SNOMED CT 07851039 / Confirmed Disorder of pituitary gland / SNOMED CT 0883668177 / Confirmed Endometriosis (clinical) / SNOMED CT 207495027 / Confirmed Esophagitis / SNOMED CT 51573348 / Confirmed Fatigue / SNOMED CT 488703617 / Confirmed Gastritis / SNOMED CT 7819082 / Confirmed Heartburn / SNOMED CT 02822309 / Confirmed History of laparoscopy / SNOMED CT 4147772487 / Confirmed Malignant tumor of cervix / SNOMED CT 706822751 / Confirmed Miscarriage / SNOMED CT 84739523 / Confirmed Nausea and vomiting / SNOMED CT 68346949 / Confirmed Pain in pelvis / SNOMED CT 491491831 / Confirmed Prolactin level above reference range / SNOMED CT 8519982904 / Confirmed Prolactinoma / SNOMED CT 669134808 / Confirmed Sciatica / SNOMED CT 92273152 / Confirmed Scoliosis / SNOMED CT 790931038 / Confirmed Seasonal allergic rhinitis / SNOMED CT 193585649 / Confirmed Stress-related physiological response affecting medical condition / SNOMED CT 03549223 / Confirmed 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 Resolved [...] to eating up to 3times per day, [id number], vicodin for pain, will see pt in office early next week, precautions given to patient, elevated lipase and leukocytosis resolved but secondary to hyperemesis, discussed case with dr Cook [facility] CenterComment on above:Result Comment: Electronically Signed By: Uriel MEADE DO.br\Date and Time Signed: 06/21/24 10:02 [id number] NoteProgress Note-Physician Assessment/Plan Patient is a 28-year-old female (on third in first trimester. Reports 1 live and 1 previous miscarriage) who was admitted with intractable nausea and vomiting likely secondary toesophagitis/gastritis with associated epigastric and esophageal pain. Admitted 06/19/24 RN INTERNSHIP consulted for assistance in management 1. Esophagitis (K20.90: Esophagitis, unspecified without bleeding) Carafate suspension 4 times daily ACHS, famotidine 20 mg IV twice daily Ordered: Basic Metabolic Panel CBC w/ Auto Diff [facility] Hospital Care/Day Moderate 35 Minutes 19575 2. Intractable vomiting (R11.10: Vomiting, unspecified) As needed Zofran. Trialing Reglan IV once. Do not have B6 or Unisom available on our formulary. Appreciate RN INTERNSHIP opinion on this. LR 500 mL bolus this morning and maintain LR at 90 mL/h. Clear liquid advance to regular diet at patient's request. She will trial regular diet as tolerated. Ordered: [facility] Care/Day Moderate 35 Minutes 70527 3. First trimester (Z34.91: Encounter for supervision of normal , unspecified, first trimester) RN INTERNSHIP to manage. Patient reported greenish vaginal discharge. Deferred to RN INTERNSHIP for assessment/management of this. Underwent transvaginal ultrasound this a.m. :Shows early single live intrauterine gestation. Composite ultrasound age 6 weeks, 2 days which corresponds to estimated gestational age by LMP. Subchorionic hemorrhage minimally changed from 06/16/2024 and measuring up to 2.8 cm. History of IVF with embryo transfer on 05/27/2024. 4. 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 [...] NORMAL (06/20/24 06:53:00) Gluc (more content not included)...[facility] CenterComment on above: Result Comment: Electronically Signed By: Josh Gilbert III, DO\Date and Time Signed: 06/20/24 11:57 [id number] NoteProgress Note-Physician Patient: INDU ST Age: 28 [...] scheduled appt with for next sunday, appreciate [facility] CenterComment on above:Result Comment: Electronically Signed By: Uriel MEADE DO\newton\Date and Time Signed: 06/20/24 07:14 [id number] NoteHistory and Physical Chief Complaint pt rpeorts [...] Lymph Auto: 8.4 % Low (06/19/24 11:49:00) [place] Auto: 3.6 % Low (06/19/24 11:49:00) Eos Auto: 0.1 % (06/19/24 11:49:00) Basophil Auto: 0.2 % (06/19/24 11:49:00) Neutro Absolute: 15.4 E9/L High (06/19/24 11:49:00) Lymph Absolute: 1.5 E9/L (06/19/24 11:49:00) [place] Absolute: 0.6 E9/L (06/19/24 11:49:00) Eos Absolute: [...] patient on clear li (more content not included)...[facility] CenterComment on above:Result Comment: Electronically Signed By: Samantha QUINN DO.seble\Date and Time Signed: 06/19/24 21:45 [id number] Evaluation + Plan note Diagnostic Tests Pending * Estradiol Level 06/13/24 [facility] 03-11-2025 Evaluation + Plan note Diagnostic Tests Pending * Estradiol Level 05/13/24 * FSH and LH 05/13/24 [facility] 02-26-2025 Evaluation + Plan note Diagnostic Tests Pending * Estradiol Level 04/30/24 [facility] 02-10-2025 History of Present illness Narrative* [...] mood. Consult IVF specialist. Prescription sent to [facility]Close follow up, 2 weeks. 2. Eating disorder. [...] Influenza Vaccine (1) 11/04/2023 documented in this encounterHannibal Regional HospitalGakxmcdcky44-65-6961 History of Present illness Narrative* Akua Streeter, ANN - 03/12/2024 8:00 AM EST Reason for Appointment: Patient ID: Indu St is a 28 y.o. female who presents for No chief complaint on file. Patient presents today via telephone call for a telehealth appointment. Patients Phone #: [phone] (mobile) Current Medications: has a current medication list which includes the following prescription(s): alprazolam, breyna, cholecalciferol, coenzyme q-10, fish oil concentrate, and vitamins. Medical History: Active Ambulatory Problems Diagnosis Date Noted Bipolar 1 disorder [place] 11/13/2022 Anxiety 12/21/2022 Asthma [place] 12/21/2022 Attention deficit hyperactivity disorder (ADHD), combined type ([facility] 12/21/2022 Proteinuria 08/03/2010 PTSD (post-traumatic stress disorder) ([facility] 12/21/2022 Bipolar affective disorder, current episode hypomanic ([facility] 12/21/2022 Well woman exam with routine gynecological exam 03/19/2023 Myalgia 02/18/2024 Resolved Ambulatory Problems Diagnosis Date Noted No Resolved Ambulatory Problems Past Medical History: Diagnosis Date Abnormal uterine bleeding (AUB) ADHD (attention deficit hyperactivity disorder) ([facility]) Amenorrhea Bilateral sacroiliitis ([facility] Cervical cancer ([facility]) Chronic fatigue Chronic rhinitis Chronic vaginitis Depression [...] 03/2020 lap, D [facility] C [facility] DILATION AND CURETTAGE OF UTERUS 03/07/2013 ; [...] of: Uriel Meade DO documented in this encounterHannibal Regional HospitalMsvahnmfjx86-51-7590 History of Present illness Narrative* PATRICIA Joyner - 02/18/2024 3:33 PM ESTAssociated Problem(s): Myalgia Dr Collazo put in lab orders and patient will go to [facility] Will call with [...] lab orders and patient will go to [facility] Will call with results Health Maintenance Due Topic Date Due Influenza Vaccine (1) 11/04/2023 documented in this encounterHannibal Regional HospitalGvwavrnfdk11-57-2657 Evaluation + Plan note Diagnostic Tests Pending * .JESUS Individual Abs 02/18/24 * Rheumatoid Factor Quantitative 02/18/24 [facility] 11-13-2024 History of Present illness Narrative* Shari Gomez, ANN - 01/16/2024 8:10 AM EST Reason for Appointment: Patient ID: Indu St is a 28 y.o. female who presents for Telehealth and Infertility Patient presents today via telephone call for a telehealth appointment. Patients Phone #: [phone] (mobile) Current Medications: has a current medication list which includes the following prescription(s): alprazolam and breyna. Medical History: Active Ambulatory Problems Diagnosis Date Noted Bipolar 1 disorder ([facility]) 11/13/2022 Anxiety 12/21/2022 Asthma ([facility]) 12/21/2022 Attention deficit hyperactivity disorder (ADHD), combined type ([facility]) 12/21/2022 Proteinuria 08/03/2010 PTSD (post-traumatic stress disorder) ([facility]) 12/21/2022 Bipolar affective disorder, current episode hypomanic ([facility]) 12/21/2022 Well woman exam with routine gynecological exam 03/19/2023 Resolved Ambulatory Problems Diagnosis Date Noted No Resolved Ambulatory Problems Past Medical History: Diagnosis Date Abnormal uterine bleeding (AUB) ADHD (attention deficit hyperactivity disorder) ([facility]) Amenorrhea Bilateral sacroiliitis ([facility]) Cervical cancer ([facility]) Chronic fatigue Chronic rhinitis Chronic [...] 03/2020 lap, D and C - [facility] DILATION AND CURETTAGE OF UTERUS 03/07/2013 ; [...] of: Uriel Meade DO documented in this encounterHannibal Regional HospitalOyhylhvsll96-88-3500 History of Present illness Narrative* Akua Streeter [...] Noted Bipolar 1 disorder ([facility]) 11/13/2022 Anxiety 12/21/2022 Asthma [place] 12/21/2022 Attention deficit hyperactivity disorder (ADHD), combined type ([facility] 12/21/2022 Proteinuria 08/03/2010 PTSD (post-traumatic stress disorder) ([facility] 12/21/2022 Bipolar affective disorder, current episode hypomanic [place] 12/21/2022 Well woman exam with routine gynecological exam 03/19/2023 Resolved Ambulatory Problems Diagnosis Date Noted No Resolved Ambulatory Problems Past Medical History: Diagnosis Date Abnormal uterine bleeding (AUB) ADHD (attention deficit hyperactivity disorder) [place] Amenorrhea Bilateral sacroiliitis [place] Cervical cancer ([facility] Chronic fatigue Chronic rhinitis Chronic vaginitis Depression with anxiety Endometriosis Gynecological disorder History of medical problems Infertility counseling Low libido Miscarriage S/P laparoscopy Sciatica, unspecified side Seasonal allergic rhinitis, unspecified trigger Serous otitis media, unspecified chronicity, unspecified laterality URI (upper respiratory infection) 03/01/2019 HISTORY PAST MEDICAL HISTORY SOCIAL HISTORY Past Medical History: Diagnosis Date Abnormal uterine bleeding (AUB) ADHD (attention deficit hyperactivity disorder) ([facility] Amenorrhea Bilateral sacroiliitis ([facility] Cervical cancer ([facility] Chronic fatigue Chronic rhinitis Chronic vaginitis Depression with anxiety Depression/Anxiety Endometriosis Gynecological disorder History of medical problems Question of bipolar disorder Infertility counseling Low libido Miscarriage S/P laparoscopy Sciatica, unspecified side Seasonal allergic rhinitis, unspecified trigger Serous otitis media, unspecified chronicity, unspecified laterality URI (upper respiratory infection) 03/01/2019 [facility] - ER Social [...] 03/2020 lap, D and C - [facility] DILATION AND CURETTAGE OF UTERUS 03/07/2013 ; [...] nursing note reviewed. Exam conducted with a remote sensing technician present. Vitals: Estimated body mass index is [...] [facility] Patient is to call office when she starts cycle and nurse will send HSG and HCG to [facility]. Will hold off on fertility meds for the next cycle until HSG results are back. Patient to return to clinic for annual and PRN as needed. Documented by Akua Streeter LPN on behalf of: Uriel Meade DO documented in this encounterHannibal Regional HospitalWtknnljzlk67-89-7852 Evaluation + Plan note Extracted from:Title:ANES Post GeneralAuthor:Lenny Moreno DODate:10/15/23 Plan Transfer/Discharge: Patient exhibiting no signs of N/V. Hydration status is adequate. Extracted from:Title:Josh Basic PREAuthor:Lenny Moreno DODate: 10/15/23 Plan [place] [employer] (ASA) physical status classification: Class II. Anesthetic Preoperative Plan: Anesthesia General.[facility] 08-12-2024 Hospital Discharge instructions Patient Education [...] day. 10/15/2023 09:50:26 Endoscopy, Care After Procedure [facility] (CUSTOM) Endoscopy Care [...] Document Re-Released: 08/13/2006 ExitCare Patient Information 2009 [employer]. Follow Up Care 09/13/2023 15:40:21 With:Alex Knutson Address: [address] [place] [address], [address] [place] [address]- [phone] Business (1) When:1 to 2 weeks Comments:Call for any problems. [facility] 08-12-2024 NoteProgress Note-Physician Patient: INDU ST [...] Daily, # 527 gm, Refills(s) 5, Pharmacy: [facility][id number], 167, cm, 09/13/23 14:57:00 EDT, Height/Length Dosing, 48.9, kg, 09/13/23 14:57:00 EDT, Weight Dosing Pantoprazole [address] Tab: 40 mg = 1 tab(s), Oral, Daily, # 30 tab(s), Refills(s) 4, Pharmacy: [facility] #[id number], 167, cm, 09/13/23 14:57:00 EDT, Height/Length Dosing, [...] CT of the abdomen / SNOMED CT 2661210440 / Confirmed Abnormal uterine bleeding. / SNOMED CT 2280543431 / Confirmed Amenorrhea / SNOMED CT 81542865 / Confirmed Anemia / SNOMED CT 149194656 / Confirmed Anxiety / SNOMED CT 90950001 / Confirmed Asthma / SNOMED CT 623612887 / Confirmed Attention deficit hyperactivity disorder / SNOMED CT 1400983644 / Confirmed Benign neoplasm of pituitary gland / SNOMED CT 192258503 / Confirmed Bilateral arthritis of sacroiliac joint / SNOMED CT 4959226240 / Confirmed Bipolar disorder / SNOMED CT 81238285 / Confirmed Chronic rhinitis / SNOMED CT 325360900 / Confirmed Chronic vaginitis / SNOMED CT 07643768 / Confirmed Depressive disorder / SNOMED CT 52678343 / Confirmed Disorder of pituitary gland / SNOMED CT 4761272768 / Confirmed Endometriosis (clinical) / SNOMED CT 130323903 / Confirmed Esophagitis / SNOMED CT 06271692 / Confirmed Fatigue / SNOMED CT 666661475 / Confirmed Gastritis / SNOMED CT 4649509 / Confirmed Heartburn / SNOMED CT 04965220 / Confirmed History of laparoscopy / SNOMED CT 0792605565 / Confirmed Malignant tumor of cervix / SNOMED CT 367973489 / Confirmed Miscarriage / SNOMED CT 16874533 / Confirmed Nausea and vomiting / SNOMED CT 69222620 / Confirmed Pain in pelvis / SNOMED CT 790189034 / Confirmed Prolactin level above reference range / SNOMED CT 9888454763 / Confirmed Prolactinoma / SNOMED CT 610091754 / Confirmed Sciatica / SNOMED CT 19199339 / Confirmed Seasonal allergic rhinitis / SNOMED CT 482672648 / Confirmed Stress-related physiological response affecting medical condition / SNOMED CT 47869125 / Confirmed Visceral hypersensitivity syndrome / 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 / Confirmed Weight loss / SNOMED CT 693121430 / Confirmed Physical Examination Vital Signs 10/15/2023 [...] 36.7 DegC Heart Rate (more content not included)...[facility] CenterComment on above:Result Comment: Electronically Signed By: Lenny Moreno DO\.br\Date and Time Signed: 10/15/23 10:06 [id number] NoteColonoscopy Procedure Report Patient: INDU ST Age: [...] Daily, # 527 gm, Refills(s) 5, Pharmacy: [facility] #[id number], 167, cm, 09/13/23 14:57:00 EDT, Height/Length Dosing, 48.9, kg, 09/13/23 14:57:00 EDT, Weight Dosing Pantoprazole [address] Tab: 40 mg = 1 tab(s), Oral, Daily, # 30 tab(s), Refills(s) 4, Pharmacy: [facility] #[id number], 167, cm, 09/13/23 14:57:00 EDT, Height/Length Dosing, [...] 3. Normal terminal ileum Images Procedure images: [id number].jpg [id number]_hd_video_[id number].jpg Rec1_hd_video_4_[id number].jpg [id number]_hd_video_[id number].jpg Rec1_hd_video_4_[id number].jpg Rec1_hd_video_4_[id number].jpg [id number]_hd_video_[id number].jpg . [...] 24 hours. Education and Follow-up: Counseled: Patient, Family.[facility] Comment on above:Other Comment: Missing Attachment - attachment storage system not supported [id number] Can be viewed in source system Missing Attachment - attachment storage system not supported [id number] Can be viewed in source systemMissing Attachment - attachment storage system not supported [id number] Can be viewed in source systemMissing Attachment - attachment storage system not supported [id number] Can be viewed in source systemMissing Attachment - attachment storage system not supported [id number] Can be viewed in source systemMissing Attachment - attachment storage system not supported [id number] Can be viewed in source systemMissing Attachment - attachment storage system not supported [id number] Can be viewed in source [id number] Note Patient Education - Text Colonoscopy Care [...] Document Re-Released: 08/13/2006 ExitCare? Patient Information ?2009 [employer].[facility] 10-15-2023 NoteProgress Note-Physician Patient: INDU [...] Daily, # 527 gm, Refills(s) 5, Pharmacy: [facility] #[id number], 167, cm, 09/13/23 14:57:00 EDT, Height/Length Dosing, 48.9, kg, 09/13/23 14:57:00 EDT, Weight Dosing Pantoprazole [address] Tab: 40 mg = 1 tab(s), Oral, Daily, # 30 tab(s), Refills(s) 4, Pharmacy: [facility] #[id number], 167, cm, 09/13/23 14:57:00 EDT, Height/Length Dosing, [...] CT of the abdomen / SNOMED CT 3705371554 / Confirmed Abnormal uterine bleeding. / SNOMED CT 5987529261 / Confirmed Amenorrhea / SNOMED CT 20076891 / Confirmed Anemia / SNOMED CT 964055713 / Confirmed Anxiety / SNOMED CT 44149299 / Confirmed Asthma / SNOMED CT 232368066 / Confirmed Attention deficit hyperactivity disorder / SNOMED CT 4328000085 / Confirmed Benign neoplasm of pituitary gland / SNOMED CT 511677477 / Confirmed Bilateral arthritis of sacroiliac joint / SNOMED CT 4213489567 / Confirmed Bipolar disorder / SNOMED CT 10731845 / Confirmed Chronic rhinitis / SNOMED CT 568790687 / Confirmed Chronic vaginitis / SNOMED CT 46175589 / Confirmed Depressive disorder / SNOMED CT 93896646 / Confirmed Disorder of pituitary gland / SNOMED CT 3812596076 / Confirmed Endometriosis (clinical) / SNOMED CT 570651789 / Confirmed Esophagitis / SNOMED CT 43676669 / Confirmed Fatigue / SNOMED CT 995350500 / Confirmed Gastritis / SNOMED CT 3097349 / Confirmed Heartburn / SNOMED CT 81418106 / Confirmed History of laparoscopy / SNOMED CT 9238769069 / Confirmed Malignant tumor of cervix / SNOMED CT 682800021 / Confirmed Miscarriage / SNOMED CT 88613136 / Confirmed Nausea and vomiting / SNOMED CT 08199148 / Confirmed Pain in pelvis / SNOMED CT 319738288 / Confirmed Prolactin level above reference range / SNOMED CT 4627560409 / Confirmed Prolactinoma / SNOMED CT 361795174 / Confirmed Sciatica / SNOMED CT 22333837 / Confirmed Seasonal allergic rhinitis / SNOMED CT 613370463 / Confirmed Stress-related physiological response affecting medical condition / SNOMED CT 63796663 / Confirmed Visceral hypersensitivity syndrome / SNOMED CT 6572057269 / Confirmed Weight loss / SNOMED CT 999886356 / Confirmed, Active Problems (31) Abnormal CT of the abdomen Abnormal uterine bleeding. 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 Bipolar disorder Chronic rhinitis Chronic vaginitis Depressive disorder Disorder of pituitary gland Endometriosis (cl (more content not included)...[facility] Comment on above:Result Comment: Electronically Signed By: Lenny Moreno DO\.br\Date and Time Signed: 10/15/23 07:34 [id number] Telephone encounter Note* Telephone Encounter - Twyla Caraballo MA - 08/14/2023 11:08 AM EDT Received MRI results completed 08/02/2023, scanned to chart Twyla Caraballo Platform Material Handler Manager II Endocrinology & Metabolism [facility] F20 & X20 [facility]06-11-2024 Miscellaneous Notes* Telephone Encounter - Twyla Caraballo MA - 08/14/2023 11:08 AM EDT Received MRI results completed 08/02/2023, scanned to chart Twyla Caraballo Platform Material Handler Manager II Endocrinology & Metabolism [facility] F20 & X20 documented in this encounterC[facility]05-17-2024 Reason for referral (narrative)* Consultation (Routine) - AuthorizedSpecialtyDiagnoses / Procedures Referred By ContactReferred To ContactGastroenterology Abiodun Ochoa PA-C [address] [place] [address] Do [id number] Gastro[address] [place] [address] Referral IDStatusReasonStart DateExpiration DateVisits RequestedVisits [id number] Specialty Services Required / [facility] Work Phone: [phone]) 867-745304-10-2024 NoteHNO ID: [id number] Author: KARINA VINCENT MD Service: ? Author [...] June 13, 2023 TIME of SERVICE: 10:12 [facility]04-10-2024 History of Present illness Narrative* Karina [...] Medications Medication Sig Norethindrone Acet-Ethinyl Est (LOESTRIN 1/20, 21,) 1-20 [...] of SERVICE: 10:12 AM documented in this encounterC[facility]11-18-2021 NoteHNO ID: [id number] Author: Renetta Beltran MD Service: Reproductive Endocrinology [...] Dr. Renetta Beltran M.D. Reproductive Endocrinology and InfertilityKane County Human Resource SsdDjgdvsxo56-81-2677 NoteHNO ID: [id number] Author: ESVIN Martinez) Service: Radiology Author Type: [...] Date:10/01/2023 09:00:00 AM Scheduled Provider: Location:[facility] Surgical Services Appointment Type:Surgery FT [facility] Evaluation + Plan note Future Appointments Appointment Date:06/20/2024 07:00:00 AM Scheduled Provider: Location:.[facility] Appointment Type:US (FT) Diagnostic Tests Pending * Estradiol Level 06/16/24 Future Scheduled Tests Radiology* US Transvaginal 06/20/24 [facility] evaluation note* Diagnosis Prolactinoma (HCC)- Primary Benign neoplasm of pituitary gland and craniopharyngeal duct (pouch) 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HCC) Unspecified disorder of the pituitary gland and its hypothalamic control Elevated prolactin level Unspecified endocrine disorder documented in this encounter [facility]* Diagnosis Nausea and vomiting, unspecified vomiting type- Primary Gastritis, presence of bleeding unspecified, unspecified chronicity, unspecified gastritis type documented in this encounter [facility] Work Phone: Evaluation note* Diagnosis Female infertility Female infertility of unspecified origin Vaginal odor Unspecified symptom associated with female genital organs documented in this encounter [facility] HealthcareEvaluation [facility]* Diagnosis Myalgia- Primary Unspecified myalgia [...] myositis Bipolar affective disorder, currently manic, moderate (CMS/HCC)- Primary Bipolar I disorder, most recent episode [...] assisted reproductive fertility procedure cycle Anxiety, generalized ([facility]) [facility] encounter [facility]* Diagnosis Nausea and vomiting, unspecified vomiting type- Primary documented in this encounter [facility] Work Phone: Evaluation note* Diagnosis 14 weeks gestation of ([facility])- Primary 15 weeks gestation of ([facility]) Nausea and vomiting, unspecified vomiting type Chest pain, unspecified type documented in this encounter [facility] Work Phone: Evaluation note* Diagnosis Myalgia- Primary Unspecified myalgia and myositis Well woman exam with routine gynecological exam Routine gynecological examination STD exposure Second trimester ([facility]) state, incidental 15 weeks gestation of ([facility]) Screening, , for anatomic survey ([facility]) Encounter for anatomic survey documented in this encounter [facility]* Diagnosis Hyperemesis of - Primary Mild hyperemesis gravidarum, unspecified as to episode of care Poor weight gain of , second trimester In vitro fertilization Encounter for assisted reproductive fertility procedure cycle 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, antepartum Abnormal ultrasound of kidney [facility] this [facility]* Diagnosis 16 weeks gestation of - Primary resulting from in vitro fertilization in second trimester Hyperemesis of Mild hyperemesis gravidarum, unspecified as to episode of care Cyclical vomiting with nausea Marijuana use during renal anomaly, single gestation 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 Bipolar disease 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 trimester ([facility]) Anxiety during [facility]* Diagnosis Hyperemesis of Mild hyperemesis gravidarum, unspecified as to episode of care Poor weight gain of , second trimester [facility]* Diagnosis Nausea and vomiting during [O21.9]- Primary [facility]* Diagnosis Hyperemesis of - Primary Mild hyperemesis gravidarum, unspecified as to episode of care Gastroesophageal reflux disease, unspecified whether esophagitis present [facility]* Diagnosis Myalgia- Primary Unspecified myalgia and myositis Second trimester ([facility]) state, incidental 20 weeks gestation of ([facility]) documented in this encounter [facility]* Diagnosis Hyperemesis of - Primary Mild hyperemesis gravidarum, unspecified as to episode of care renal anomaly, single gestation Marijuana use during 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 documented [facility]* Diagnosis Myalgia- Primary Unspecified myalgia and myositis 23 weeks gestation of ([facility]) Second trimester ([facility]) state, incidental Hyperemesis of ([facility]) Mild hyperemesis gravidarum, unspecified as to episode of care resulting from in vitro fertilization in second trimester ([facility]) Diabetes mellitus screening Screening for diabetes mellitus documented in this encounter [facility] HealthcareEvaluation note* Diagnosis 16 weeks gestation of Hyperemesis of Mild hyperemesis gravidarum, unspecified as to episode of care documented in this [facility]* Diagnosis Hyperemesis of - Primary Mild hyperemesis gravidarum, unspecified as to episode of care renal anomaly, single gestation Marijuana use during 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 Nausea and vomiting during Poor weight gain of , second trimester In vitro fertilization Encounter for assisted reproductive fertility procedure cycle 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, antepartum documented in this encounter [facility] SystemEvaluation note* Diagnosis Myalgia- Primary Unspecified myalgia and myositis 27 weeks gestation of ([facility]) Second trimester ([facility]) state, incidental Hyperemesis of ([facility]) Mild hyperemesis gravidarum, unspecified as to episode of care resulting from in vitro fertilization in second trimester ([facility]) Breech presentation, single or unspecified fetus ([facility]) documented in this encounter [facility]* Diagnosis Myalgia- Primary Unspecified myalgia and myositis Anemia, unspecified type- Primary Third trimester ([facility]) state, incidental 29 weeks gestation of ([facility]) Bipolar 1 disorder (HCC) PTSD (post-traumatic stress disorder) Posttraumatic stress disorder documented in this encounter [facility]* Diagnosis renal anomaly, single gestation- Primary Marijuana use during resulting from in vitro fertilization in second trimester 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 documented in this [facility]* Diagnosis 16 weeks gestation of Hyperemesis of Mild hyperemesis gravidarum, unspecified as to episode of care documented in this encounter [facility]* Diagnosis 30 weeks gestation of - Primary documented in this [facility]* Diagnosis Myalgia- Primary Unspecified myalgia and myositis Third trimester ([facility]) state, incidental 31 weeks gestation of ([facility]) Encounter for in vitro fertilization Encounter for assisted reproductive fertility procedure cycle Hemorrhoids, unspecified hemorrhoid type documented in this encounter [facility]* Diagnosis Myalgia- Primary Unspecified myalgia and myositis Third trimester ([facility]) state, incidental 33 weeks gestation of ([facility]) documented in this encounter [facility] Narrative No data available for this section [facility] Discharge instructions* Attachments The following attachments cannot be sent through Care Everywhere. * Gastritis ED (Polish) * Nausea and Vomiting, Adult ED (Polish) * Cannabis hyperemesis syndrome (Polish) [facility] Discharge instructions No data available for this section [facility] Discharge instructions* Attachments The following attachments cannot be sent through Care Everywhere. * Nausea and Vomiting, Adult ED (Polish) [facility] Work Phone: InstructionsNot on filedocumented in [...] be sent through Care Everywhere. * Preeclampsia (Polish) [facility]Not on file documented in this [facility] SystemInstructionsNot on file documented in this encounter[facility] SystemInstructionsNot on file documented in this encounter[facility] SystemInstructionsNot on file documented in this [facility] SystemProgress note No data available for this section [facility] Reason for visit Narrative* Auth/CertSpecialtyDiagnoses / ProceduresReferred By ContactReferred To Contact Diagnoses 14 weeks gestation of ([facility]) [place] [address] [place] [address] Phone: tel: fax: [facility] [address] [place] [address] Phone: tel: fax: Referral IDStatusReasonStart DateExpiration DateVisits RequestedVisits [id number] [facility] Work Phone: Reeqpp for visit Narrative* Consultation (Routine) - Pending ReviewSpecialtyDiagnoses / ProceduresReferred By ContactReferred To ContactMaternal and Medicine Diagnoses Hyperemesis of Poor weight gain of , second trimester Mario Alberto Ortiz MD [address] [facility], [address] [place] [address] Phone: tel: fax: Maternal- Medicine at [facility] [address] [address] Phone: tel: fax: Referral IDStatusReasonStart DateExpiration DateVisits RequestedVisits [id number] Review Specialty Services Required [facility] Summary Purpose Family History No Family History [...] FoundNo Family History Records Found Advance Directives Date ActivatedDate InactivatedComments08/15/2024 3:05 AMQuestionAnswerComments Plan of Care:* Code Status Discussion Not Completed Decision Maker:* Provider Rationale:* Patient condition does not warrant discussion Reason for Referral SpecialtyDiagnoses / ProceduresReferred By ContactReferred To ContactMR IMAGING Diagnoses 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HCC) Procedures MRI PITUITARY WO/W IVCON MRI BRAIN BRAIN STEM W/O W/CONTRAST MATERIAL Karina Vincent MD [address] [place] [address] [facility] [place] [address] Referral IDStatusReasonStart DateExpiration DateVisits RequestedVisits [id number] Review Auto-Generated Referral Additional Source Comments INFORMATION SOURCE (unrecogn ized section and content) DATE CREATED AUTHOR 04/15/2020 [facility] DATE CREATED AUTHOR AUTHOR'S ORGANIZ ATION 01/22/2021 [facility] DATE CREATED AUTHOR AUTHOR'S ORGANIZ ATION 07/30/2023 [facility] DATE CREATED AUTHOR AUTHOR'S ORGANIZ ATION 08/24/2023 [facility] DATE CREATED AUTHOR AUTHOR'S ORGANIZ ATION 09/19/2023 [facility] DATE CREATED AUTHOR AUTHOR'S ORGANIZ ATION 10/16/2023 [facility] DATE CREATED AUTHOR AUTHOR'S ORGANIZ ATION 10/18/2023 [facility] DATE CREATED AUTHOR AUTHOR'S ORGANIZ ATION 10/19/2023 [facility] DATE CREATED AUTHOR AUTHOR'S ORGANIZ ATION 02/21/2024 [facility] DATE CREATED AUTHOR AUTHOR'S ORGANIZ ATION 02/23/2024 [facility] DATE CREATED AUTHOR AUTHOR'S ORGANIZ ATION 02/24/2024 [facility] DATE CREATED AUTHOR AUTHOR'S ORGANIZ ATION 05/02/2024 [facility] DATE CREATED AUTHOR AUTHOR'S ORGANIZ ATION 05/05/2024 [facility] DATE CREATED AUTHOR AUTHOR'S ORGANIZ ATION 05/08/2024 [facility] DATE CREATED AUTHOR AUTHOR'S ORGANIZ ATION 05/15/2024 [facility] DATE CREATED AUTHOR AUTHOR'S ORGANIZ ATION 05/16/2024 [facility] DATE CREATED AUTHOR AUTHOR'S ORGANIZ ATION 05/22/2024 [facility] DATE CREATED AUTHOR AUTHOR'S ORGANIZ ATION 05/23/2024 [facility] DATE CREATED AUTHOR AUTHOR'S ORGANIZ ATION 06/01/2024 [facility] DATE CREATED AUTHOR AUTHOR'S ORGANIZ ATION 06/08/2024 [facility] DATE CREATED AUTHOR AUTHOR'S ORGANIZ ATION 06/09/2024 [facility] DATE CREATED AUTHOR AUTHOR'S ORGANIZ ATION 06/12/2024 [facility] DATE CREATED AUTHOR AUTHOR'S ORGANIZ ATION 06/14/2024 [facility] DATE CREATED AUTHOR AUTHOR'S ORGANIZ ATION 06/15/2024 [facility] DATE CREATED AUTHOR AUTHOR'S ORGANIZ ATION 06/17/2024 [facility] DATE CREATED AUTHOR AUTHOR'S ORGANIZ ATION 06/20/2024 [facility] DATE CREATED AUTHOR AUTHOR'S ORGANIZ ATION 06/21/2024 [facility] DATE CREATED AUTHOR AUTHOR'S ORGANIZ ATION 06/22/2024 [facility] DATE CREATED AUTHOR AUTHOR'S ORGANIZ ATION 06/23/2024 [facility] DATE CREATED AUTHOR AUTHOR'S ORGANIZ ATION 06/24/2024 [facility] DATE CREATED AUTHOR AUTHOR'S ORGANIZ ATION 07/16/2024 [facility] DATE CREATED AUTHOR AUTHOR'S ORGANIZ ATION 08/15/2024 [facility] DATE CREATED AUTHOR AUTHOR'S ORGANIZ ATION 08/16/2024 [facility] DATE CREATED AUTHOR AUTHOR'S ORGANIZ ATION 08/17/2024 [facility] DATE CREATED AUTHOR AUTHOR'S ORGANIZ ATION 08/19/2024 [facility] DATE CREATED AUTHOR AUTHOR'S ORGANIZ ATION 08/23/2024 [facility] DATE CREATED AUTHOR AUTHOR'S ORGANIZ ATION 09/22/2024 [facility] DATE CREATED AUTHOR AUTHOR'S ORGANIZ ATION 10/05/2024 [facility] DATE CREATED AUTHOR AUTHOR'S ORGANIZ ATION 11/17/2024 [facility] DATE CREATED AUTHOR AUTHOR'S ORGANIZ ATION 11/18/2024 [facility] DATE CREATED AUTHOR AUTHOR'S ORGANIZ ATION 11/24/2024 [facility] DATE CREATED AUTHOR AUTHOR'S ORGANIZ ATION 12/08/2024 [facility] DATE CREATED AUTHOR AUTHOR'S ORGANIZ ATION 12/11/2024 [facility] DATE CREATED AUTHOR AUTHOR'S ORGANIZ ATION 01/10/2025 [facility] DATE CREATED AUTHOR AUTHOR'S ORGANIZ ATION 01/12/2025 [facility] DATE CREATED AUTHOR AUTHOR'S ORGANIZ ATION 01/14/2025 [facility] EPIC Source Comments (unrecognize d section and content) In the event this informatio n is protected by the Federal Confidentiality of Alcohol and Drug Abuse Patient Records regulations: The Federal rules restrict any use of the information to criminally investigate or prosecute any alcohol or drug abuse patient.[facility] HospitalIn the event this information is protected by the Federal Confidentiality of Alcohol and Drug Abuse Patient Records regulations: The Federal rules restrict any use of the information to criminally investigate or prosecute any alcohol or drug abuse patient.[facility] Reason for Visit (unrecogniz ed section and content) ReasonCommentsPituitary ProblemReasonCommentsn/v. chest painReasonComments ResultsReasonCommentsTelehealthInfertilityReasonCommentsInfertilityReason CommentsMental Health ProblemPatient feels in a manic phase.ReasonCommentsER Follow-upPt present today for an ER follow up. Pt was seen at [facility] on 06/19/2024 for hyperemesis w/.ReasonCommentsAmenorrheaReasonComments Routine VisitReasonCommentsVomiting [...] Team MemberRelationshipSpecialtyStart DateEnd Date Uriel Meade DO [address] [place], [place] [address] [address] ReferringOb/Gyn4/2/24Team MemberRelationshipSpecialtyStart DateEnd Date Uriel Meade DO [address] [facility] [place] [address] ReferringOb/Gyn4/2/24Team MemberRelationshipSpecialtyStart DateEnd Date Carolyne Collazo MD [address] [place] [address] PCP - GeneralFamily Medicine08/28/22Team MemberRelationshipSpecialtyStart DateEnd Date Carolyne Collazo MD [address] [place] [address] PCP - GeneralFamily Medicine08/28/22Team MemberRelationshipSpecialtyStart DateEnd Date Carolyne Collazo MD [address] [place] [address] PCP - GeneralFamily Medicine08/28/22Team MemberRelationshipSpecialtyStart DateEnd Date Carolyne Collazo MD [address] [place] [address] PCP - GeneralFamily Medicine08/28/22Team MemberRelationshipSpecialtyStart DateEnd Date Carolyne Collazo MD [address] [place] [address] PCP - GeneralFamily Medicine08/28/22Team MemberRelationshipSpecialtyStart DateEnd Date Carolyne Collazo MD [address] [place] [address] PCP - GeneralFamily Medicine08/28/22Team MemberRelationshipSpecialtyStart DateEnd Date Carolyne Collazo MD [address] [place] [address] PCP - GeneralFamily Medicine08/28/22Team MemberRelationshipSpecialtyStart DateEnd Date Carolyne Collazo MD [address] [place] [address] PCP - GeneralFamily Medicine08/28/22Team MemberRelationshipSpecialtyStart DateEnd Date Carolyne Collazo MD [address] [place] [address] PCP - GeneralFamily Medicine08/28/22Team MemberRelationshipSpecialtyStart DateEnd Date Carolyne Collazo MD [address] [place] [address] PCP - GeneralFamily Medicine08/28/22Team MemberRelationshipSpecialtyStart DateEnd Date Carolyne Collazo MD [address] [place] [address] PCP - GeneralFamily Medicine08/28/22Team MemberRelationshipSpecialtyStart DateEnd Date Carolyne Collazo MD [address] [place] [address] PCP - GeneralFamily Medicine08/28/22Team MemberRelationshipSpecialtyStart DateEnd Date Carolyne Collazo MD [address] [place] [address] PCP - GeneralFamily Medicine08/28/22Team MemberRelationshipSpecialtyStart DateEnd Date Carolyne Collazo MD [address] [place] [address] PCP - GeneralFamily Medicine08/28/22Team MemberRelationshipSpecialtyStart DateEnd Date Carolyne Collazo MD [address] [place] [address] PCP - GeneralFamily Medicine08/28/22Team MemberRelationshipSpecialtyStart DateEnd Date Carolyne Collazo MD [address] [place] [address] PCP - GeneralFamily Medicine08/28/22Team MemberRelationshipSpecialtyStart DateEnd Date Carolyne Collazo MD [address] [place] [address] PCP - GeneralFamily Medicine08/28/22Team MemberRelationshipSpecialtyStart DateEnd Date Yasmin Welch DO [address] [place] [address] PCP - GeneralKn[facility] Clinicsly Medicine08/13/24Team MemberRelationshipSpecialtyStart DateEnd Date Yasmin Welch DO [address] [place] [address] PCP - Generalmily Medicine08/13/24Team MemberRelationshipSpecialtyStart DateEnd Date Yasmin Welch DO [address] [place] [address] PCP - GeneralFamily Medicine08/13/24Team MemberRelationshipSpecialtyStart DateEnd Date Carolyne Collazo MD [address] [place] [address] PCP - Generalmily Medicine08/28/22Team MemberRelationshipSpecialtyStart DateEnd Date Carolyne Collazo MD [address] [place] [address] PCP - GeneralFamily Medicine08/28/22Team MemberRelationshipSpecialtyStart DateEnd Date Carolyne Collazo MD [address] [place] [address] PCP - GeneralFamily Medicine08/28/22Team MemberRelationshipSpecialtyStart DateEnd Date Yasmin Welch DO [address] [place] [address] PCP - GeneralFamily Medicine09/03/24Team MemberRelationshipSpecialtyStart DateEnd Date Yasmin Welch DO [address] [place] [address] PCP - GeneralFamily Medicine09/03/24Team MemberRelationshipSpecialtyStart DateEnd Date Yasmin Welch DO [address] [place] [address] PCP - GeneralFamily Medicine09/03/24Team MemberRelationshipSpecialtyStart DateEnd Date Yasmin Welch DO [address] [place] [address] PCP - GeneralFamily Medicine09/03/24Team MemberRelationshipSpecialtyStart DateEnd Date Carolyne Collazo MD [address] [place] [address] PCP - GeneralFamily Medicine08/28/22Team MemberRelationshipSpecialtyStart DateEnd Date Yasmin Welch DO [address] [place] [address] PCP - GeneralFamily Medicine09/03/24Team MemberRelationshipSpecialtyStart DateEnd Date Yasmin Welch DO [address] [facility] [place] [address] PCP - GeneralFamily Medicine09/03/24Team MemberRelationshipSpecialtyStart DateEnd Date Yasmin Welch DO [address] [place] [address] PCP - GeneralFamily Medicine09/03/24Team MemberRelationshipSpecialtyStart DateEnd Date Yasmin Welch DO [address] [place] [address] PCP - GeneralFamily Medicine09/03/24Team MemberRelationshipSpecialtyStart DateEnd Date Yasmin Welch DO [address] [place] [address] PCP - GeneralFamily Medicine09/03/24Team MemberRelationshipSpecialtyStart DateEnd Carolyne Collazo MD [address] [place] [address] PCP - GeneralFamily Medicine08/28/22Team MemberRelationshipSpecialtyStart DateEnd Date Yasmin Welch DO [address] [place] [address] PCP - GeneralFamily Medicine09/03/24Team MemberRelationshipSpecialtyStart DateEnd Date Yasmin Welch DO [address] [place] [address] PCP - GeneralFamily Medicine09/03/24Team MemberRelationshipSpecialtyStmccool DateEnd Date Yasmin Welch [address] [place] [address] PCP - [facility]09/03/24Te MemberRelationshipSCoalinga Regional [facility] DateEnd Date Carolyne Collazo MD [address] [place] [address] PCP - [facility]08/28/22Team MemberRelationshipSCoalinga Regional Medical Center DateEnd Date Carolyne Collazo MD [address] [place] [address] PCP - [facility]08/28/22 Scheduled Active and Recently Administ ered Medications (unrecognized section and content) Medication Order07/17//// diphenhydrAMINE (BENADryl) injection 25 mg (COMPLETED) 25 [...] dose * 1540 (Given - Provider: Caroline Brennan, RN) morphine injection 4 mg (COMPLETED) 4 mg, intravenous, Once, On Sun07/20/23 at 1815, For 1 dose * 1826 (Given - Provider: Caroline Brennan RN) Medication Order//01/2025 alum-mag hydroxide-simeth (Mylanta) 200-200-20 mg/5 mL oral suspension 30 mL (COMPLETED) 30 mL, oral, Once, On Sun08/13/24 at 0945, For 1 dose * 1006 (Given - Provider: Fe Phillips, CINDY) HYDROmorphone (Dilaudid) injection 0.2 mg (COMPLETED) 0.2 mg, intravenous, Once, On Sun08/13/24 at 1050, For 1 dose * 1102 (Given - Provider: Fe Phillips, RN) lidocaine (Xylocaine) 2 % mouth solution 15 mL (COMPLETED) 15 mL, oral, Once, On Sun08/13/24 at 0945, For 1 dose * 1006 (Given - Provider: Fe Phillips, RN) ondansetron (Zofran) injection 4 mg (COMPLETED) 4 mg, intravenous, Once, On Sun08/13/24 at 0930, For 1 dose, When administering via IV Push, administer over 3-5 minutes. * 0938 (Given - Provider: Fe Phillips, CINDY) promethazine (Phenergan) 12.5 mg in sodium chloride 0.9% 50 mL IV (COMPLETED) 12.5 mg, intravenous, Administer over 15 Minutes, Once, On Sun08/13/24 at 1050, For 1 dose * 1105 (New Bag - Provider: Fe Phillips, RN) * 1138 (Stopped - Provider: Fe Phillips, RN) sodium chloride 0.9 % bolus 1,000 mL (COMPLETED) 1,000 mL, intravenous, at 999 mL/hr, Administer over 1 Hours, Once, On Sun08/13/24 at 0930, For 1 dose * 0938 (New Bag - Provider: Fe Phillips, RN) * 1138 (Stopped - Provider: Fe Phillips RN) Medication Order08/13/// acetaminophen (Tylenol) suppository 650 mg 650 mg, rectal, Every 6 hours scheduled, First dose on Sun08/15/24 at 1800, If ordered PRN for pain, nurse is permitted to administer this medication for higher pain scores based on patient preference? Yes * 181 (Given - Provider: Brittany Diez RN) capsicum (Zostrix) 0.075 % topical cream Topical, 3 times daily, First dose on Sun08/15/24 at 1600, Apply to: abdomen or chest * 1600 (Due) * 2117 (Given - Provider: Isabella Harris RN) diphenhydrAMINE [...] * 0532 (Given - Provider: Karis Newton, CINDY) * 1330 (Given - Provider: Brittany Diez RN) * 2001 (Given - Provider: Isabella Harris RN) famotidine PF (Pepcid) injection 20 mg (COMPLETED) 20 mg, intravenous, Administer over 2 Minutes, Once, On Moriah 08/14/24 at 2305, For 1 dose * 232 (Given - Provider: Karis Newton RN) famotidine [...] 0934 (New Bag - Provider: Mery Cole, RN) * 1134 (Stopped - Provider: Mery Cole, RN) metoclopramide (Reglan) injection 10 mg (COMPLETED) 10 mg, intravenous, Once, On Moriah 08/14/24 at 2355, For 1 dose * 0007 (Given - Provider: Karis Newton, RN) metoclopramide (Reglan) injection 10 mg 10 mg, intravenous, Every 6 hours scheduled, First dose on Sun08/15/24 at 0600 * 0533 (Given - Provider: Karis Newton, CINDY) * 1209 (Given - Provider: Mery Cole, CINDY) * 1805 (Given - Provider: Brittany Diez [...] minutes. * 0643 (Given - Provider: Karis Newton, CINDY) * 1327 (Given - Provider: Nahomi Elder RN) * 2001 (Given - Provider: Isabella Harris RN) ondansetron (Zofran) injection 4 mg (COMPLETED) 4 mg, intravenous, Once, On Sun08/15/24 at 1010, For 1 dose, When administering via IV Push, administer over 3-5 minutes. * 1018 (Given - Provider: Mery Cole RN) pantoprazole (Protonix) injection 40 mg 40 mg, intravenous, Daily, First dose on Sun08/15/24 at 0900, Reconstitute each 40 mg vial with 10 mL NS to make 4 mg/mL solution. * 0932 (Given - Provider: Mery Cole RN) perflutren lipid microspheres (Definity) [...] RN) * 0702 (Stopped - Provider: Karis J Constable, RN) * 0703 (New Bag - Provider: Karis [...] * 0345 (Medication Applied - Provider: Karis Newton, CINDY) senna (Senokot) 8.8 mg/5 mL syrup 5 [...] * 0320 (New Bag - Provider: Karis Newton RN) * 0927 (Rate/Dose Verify - Provider: Mery Cole RN) * 1209 (Rate/Dose Verify - Provider: Mery Cole RN) Medication Order// benzocaine-menthol (Cepastat Sore Throat) [...] * 0806 (Given - Provider: Mery Cole, CINYD) hydrALAZINE (Apresoline) injection 5 mg 5 mg, [...] RN) * 0644 (Given - Provider: Karis Newton RN) * 0941 (Given - Provider: Mery Cole, CINDY) * 1319 (Given - Provider: Brittany Diez, CINDY) labetaloL (Normodyne,Trandate) injection 20 mg 20 mg, [...] Starting on Sun08/15/24 at 0305, For 1dose anqmwsqyj-ebuphrmnpjRBQBR-Jzhkjo 1:1:1 Magic Mouthwash 10 mL, Swish & Swallow, Every 6 hours PRN, stomatitis, mucositis, other, GERD, Starting on Sun08/15/24 at 1306 * 1455 (Given - Provider: Brittany Diez RN) magnesium hydroxide (Milk of [...] line, Starting on Sun08/15/24 at 0305, Give WI if patient is unable to take orally [...] line, Starting on Sun08/15/24 at 0305, Give WI if patient is unable to take orally [...] BE BASED ON THE PRIMARY CLINICAL RECORDS. [facility]. provides no warranty or guarantee of the accuracy or completeness of information in this document.
[2025-01-14 22:49] LABS: Glucose Urine UA NEGATIVE (NEGATIVE)
[2025-01-14 22:58] LABS: Cast Seen? NONE SEEN #/LPF (NONE SEEN); Crystals Seen? Seen #/HPF (None Seen); Urine Culture Indicated YES-LC
[2025-01-14 23:13] VITALS: BP 120/70; PULSE 107
== END 2025-01-15 00:25 | disposition home or self-care (01) ==
PROVIDERS: Admitting Provider Obstetrics & Gynecology; PCP Family Medicine; Visit Provider Obstetrics & Gynecology
DX: O47.03 False labor before 37 completed weeks of gestation, third trimester (principal); Z3A.35 35 weeks gestation of pregnancy
CPT/HCPCS: 59025; 81001; 87086; G0378; G0379

== ENCOUNTER 2025-01-21 22:24 | Inpatient (IN) | payer BC, SELFPAY ==
--- OUTSIDE RECORDS SUMMARY | 2024-12-16 08:30 | XMS_ITS | Encounter Summary ---
Author Organization [facility] Address [address] [place] [address] Care Team Providers Care Sewing Room Supervisor Name Role Phone Raleigh Collazo MD Primary Care Provider [phone] Reason for Visit * ReasonCommentsRoutine Visit Encounter Details DateTypeDepartmentCare Team (Latest Contact Info)Ushlzvaovms52/14/2025 9:30 AM EDTRoutine [facility] [address] [address] Uriel Meade DO [address] [place] [address] Third trimester ([facility]); 31 weeks gestation of ([facility]); Encounter for in vitro fertilization; Hemorrhoids, unspecified hemorrhoid type Social History Tobacco UseTypesPacks/DayYears UsedDateSmoking Tobacco: NeverAlcohol UseStandard Drinks/WeekCommentsNever0 (1 standard drink = 0.6 oz pure alcohol)caffeine: none B1300 Health LiteracyAnswerDate RecordedHow often do you need to have someone help you when you read instructions, pamphlets, or other written material from your doctor or pharmacy?Never02/15/2024Social Connection and Isolation Panel AnswerDate RecordedIn a typical week, how many times do you talk on the phone with family, friends, or neighbors?More than three times a week02/15/2024How often do you get together with friends or relatives?Never02/15/2024How often do you attend buddhist or episcopal services?Never02/15/2024o you belong to any clubs or organizations such as buddhist groups, unions, fraternal or athletic isauro ups, or school groups?No02/15/2024How often do you attend meetings of the clubs or organizations you belong to?Never02/15/2024re you , , , , never , or living with a partner?Kkzohre0202/15/2024 AUDIT-CAnswerDate RecordedQ1: How often do you have a drink containing alcohol? Monthly or less02/15/2024Q2: How many drinks containing alcohol do you have on a typical day when you are drinking?1 or Q3: How often do you have six or more drinks on one occasion?Never02/15/2024Overall Financial Resource Strain (CARDIA)AnswerDate RecordedHow hard is it for you to pay for the very basics like food, housing, medical care, and heating?Not hard at all02/15/2024[facility] [place] of Occupational Health - Occupational Stress QuestionnaireAnswerDate RecordedDo you feel stress - tense, restless, nervous, or anxious, or unable to sleep at night because yourmind is troubled all the time - these days?Very much 02/15/2024Exercise Vital SignAnswerDate RecordedOn average, how many days per week do you engage in moderate to strenuous exercise (like a brisk walk)?0 days 02/15/2024On average, how many minutes do you engage in exercise at this level?0 min02/15/2024Hunger Vital SignAnswerDate RecordedWithin the past 12 months, you worried that your food would run out before you got the money to buymore.Never true02/15/2024Within the past 12 months, the food you bought just didn't last and you didn't have money to get more.Never true02/15/2024RAPARE - TransportationAnswerDate RecordedIn the past 12 months, has lack of transportation kept you from medical appointments or from getting medications?No 02/15/2024In the past 12 months, has lack of transportation kept you from meetings, work, or from getting things needed for daily living?No02/15/2024 Housing Stability Vital SignAnswerDate RecordedIn the last 12 months, was there a time when you were not able to pay the mortgage or rent on time?No02/15/2024In the past 12 months, how many times have you moved where you were living?0 02/15/2024t any time in the past 12 months, were you homeless or living in a skilled nursing (including now)?No02/15/2024Estimated Date of DeliveryComments Yes02/12/2025ased on Interfaced EDDSex and Gender InformationValueDate Recorded Sex Assigned at BirthNot on fileLegal LwiTaivzh40/15/2023 7:05 PM EDTGender IdentityNot on fileSexual OrientationNot on filedocumented as of this encounter Last Filed Vital Signs Vital SignReadingTime TakenCommentsBlood Buqpbzvi863/5212/16/2024 9:36 AM EDT Pulse--Temperature--Respiratory Rate--Oxygen Saturation--Inhaled Oxygen Concentration--Fddgzy98.1 kg (136 lb 12.8 oz)12/16/2024 9:36 AM EDTHeight--Body Mass Index22.0802 2:48 PM ESTdocumented in this encounter Progress Notes * Shari Gomez, ANN - 12/16/2024 9:30 AM EDT Reason for Appointment: Patient ID: Sue Colón is a 29 y.o. female who presents for Routine Visit Patient presents today for Return OB appointment. MEDICATIONS Current Outpatient Medications [...] (SEROQUEL) 50 mg, 2 times daily ALLERGIES Allergies[1] PROBLEMS Active Ambulatory Problems Diagnosis Date Noted Bipolar 1 disorder (HCC) 11/13/2022 Anxiety 12/21/2022 Asthma ([facility]) 12/21/2022 Attention deficit hyperactivity disorder (ADHD), combined type 12/21/2022 Proteinuria 08/03/2010 PTSD (post-traumatic stress disorder) 12/21/2022 Bipolar affective disorder, current episode hypomanic ([facility]) 12/21/2022 Well woman exam with routine gynecological exam 03/19/2023 Myalgia 02/18/2024 Fallopian tube disorder 03/13/2024 Anovulation 03/13/2024 Female infertility 03/13/2024 Resolved Ambulatory Problems Diagnosis Date Noted No Resolved Ambulatory Problems Past Medical History: Diagnosis Date Abnormal uterine bleeding (AUB) ADHD (attention deficit hyperactivity disorder) Amenorrhea Bilateral sacroiliitis Cervical cancer ([facility]) Chronic fatigue Chronic rhinitis Chronic vaginitis Depression with anxiety Endometriosis Gynecological disorder History of medical problems Infertility counseling Low libido Miscarriage ([facility]) S/P laparoscopy Sciatica, unspecified side Seasonal allergic rhinitis, unspecified trigger Serous otitis media, unspecified chronicity, unspecified laterality URI (upper respiratory infection) 03/01/2019 HISTORY PAST MEDICAL HISTORY SOCIAL HISTORY Medical History[2] Social History Tobacco Use Smoking status: Never Smokeless tobacco: Not on file Substance Use Topics Alcohol use: Never Comment: caffeine: none Drug use: Not on file FAMILY HISTORY Family History[3] SURGICAL HISTORY Surgical History[4] REVIEW OF SYSTEMS Review of Systems: Review [...] nursing note reviewed. Exam conducted with a metal sponge making machine operator present. Vitals: Estimated body mass index is 22.08 kg/m?? as calculated from the following: Height as of 04/14/24: 5' 6 . Weight as of this encounter: 136 lb 12.8 oz. BP: 108/52 No LMP recorded. Patient is . ASSESSMENT & PLAN ICD-10-CM 1. Third trimester ([facility]) Z34.93 2. 31 weeks gestation of ([facility]) Z3A.31 POCT urinalysis dipstick manually resulted 3. Encounter for in vitro fertilization Z31.83 US OB follow up transabdominal approach Return OB: Patient presents today for a routine obstetrics appointment. Patient is currently 31w5d . Patient states she is doing well but has complaints of being tired due to current . Patient has verbalizes frequent movement. labor precautions was discussed/given and patient was instructed to perform kick counts three times a day. Pt given growth ultrasound to have obtained in two weeks. Pt has complaints of hemorrhoids, tucks pads faxed to pharmacy. Orders Placed This Encounter Procedures US OB follow up transabdominal approach POCT urinalysis dipstick manually resulted Follow Up: Patient is to return to office in 2 week for routine OB appointment. Documented by Shari Gomez LPN on behalf of: Uriel Meade DO [1] Allergies Allergen Reactions Dust Mite Extract Unknown [2] Past Medical History: Diagnosis Date Abnormal uterine bleeding (AUB) ADHD (attention deficit hyperactivity disorder) Amenorrhea Bilateral sacroiliitis Cervical cancer (HCC) Chronic fatigue Chronic rhinitis Chronic vaginitis Depression with anxiety Depression/Anxiety Endometriosis Gynecological disorder History of medical problems Question of bipolar disorder Infertility counseling Low libido Miscarriage ([facility]) S/P laparoscopy Sciatica, unspecified side Seasonal allergic rhinitis, unspecified trigger Serous otitis media, unspecified chronicity, unspecified laterality URI (upper respiratory infection) 03/01/2019 [facility] [place] [3] Family History Problem Relation Name Age of Onset Lung cancer Mother Hypothyroidism Mother ADD / ADHD Mother Arthritis Father Lung cancer Father Hypertension Maternal Grandmother Cancer Maternal Grandmother Hypertension Maternal Grandfather Heart disease Maternal Grandfather Stroke Maternal Grandfather Cervical cancer Paternal Grandmother Clotting disorder Paternal Grandmother Hypertension Paternal Grandmother ADD / ADHD Sibling No Known Problems Daughter [4] Past Surgical History: Procedure Laterality Date COLONOSCOPY 11/2023 DILATION AND CURETTAGE 03/2020 lap, D and C - at [facility] DILATION AND CURETTAGE OF UTERUS 03/07/2013 ; 08/13/2015 DILATION AND CURETTAGE OF UTERUS 10/27/2022 EGD 11/2023 HYSTEROSCOPY 06/12/2016 Laproscopy/hysterscopy documented in this encounter Plan of Treatment Not on file documented as of this encounter Procedures Procedure NamePriorityDate/TimeAssociated DiagnosisCommentsPOCT URINALYSIS JDRNVHEBKxhvjgc33/14/2025 9:46 AM EDT 31 weeks gestation of ([facility]) documented in this encounter Results * US OB follow up transabdominal approach (12/31/2024 8:47 AM EDT)Anatomical RegionLateralityModalityBodyUltrasoundSpecimen (Source)Anatomical Location / LateralityCollection Method / VolumeCollection TimeReceived Time12/31/2024 4:26 PM EDT Impressions 01/01/2025 8:21 AM EDT 1. Single, live intrauterine , current sonographic age of 34 weeks and 5 days, with an estimated date of delivery of February 06, 2025. 2. ?? 5 pounds 11 ounces. ??79.5% 3. ??Mild distention of the bladder, no significant vesicoureteral reflux suggested. ??Findings may represent presence of posterior urethral valves. * ??Estimated Weight (g) by Percentile is based upon an accurate estimated age based onlast menstrual period. ?? TRANSCRIBED BY: ? ELECTRONICALLY SIGNED BY: Ciaran Restrepo MD Narrative 01/01/2025 8:21 AM EDT FINDINGS: A single, live intrauterine is present with normal cardiac rate of 134 ??beats per minute. Normal activity and amniotic fluid volume. Amniotic fluid index is 11 ??cm. ??Morphology is grossly normal with exception of a large bladder volume, no significant ureteral dilatation. ?? The current sonographic age is 34 ??weeks and 5 days, based on the following measurements: BPD ? 8.4 cm (34 weeks, 0 days) Head Circumference ? 31.4cm (35 ??weeks, 1 days) Abdominal Circumference ? 32.0cm (36 weeks, 0 days) Femur Length ?6.6cm (33 weeks, 6 days) Presentation ? Cephalic ? Weight (g) by Percentile ??79.5 % * These measurements result in an estimated date of delivery of February 06, 2025. ?? The current estimated weight is ??2592 ??grams ( 5 ??pound, 11 ??ounces). ?? Procedure Note Ciaran Restrepo MD - 01/01/2025 FINDINGS: A single, live intrauterine is present with normal cardiacrate of 134 beats per minute. Normal activity and amniotic fluidvolume. Amniotic fluid index is 11 cm. Morphology is grossly normal withexception of a large bladder volume, no significant ureteraldilatation. The current sonographic age is 34 weeks and 5 days, basedon the following measurements: BPD 8.4 cm (34 weeks, 0 days) Head Circumference 31.4cm (35 weeks, 1 days) Abdominal Circumference 32.0cm (36 weeks, 0 days) Femur Length 6.6cm (33 weeks, 6 days) Presentation Cephalic Weight (g) by Percentile 79.5 % * These measurements result in an estimated date of delivery of February. The current estimated weight is 2592 grams ( 5 pound, 11ounces). IMPRESSION: 1. Single, live intrauterine , current sonographic age of 34weeks and 5 days, with an estimated date of delivery of February 06, 2025. 2. 5 pounds 11 ounces. 79.5% 3. Mild distention of the bladder, no significant vesicoureteralreflux suggested. Findings may represent presence of posterior urethralvalves. * Estimated Weight (g) by Percentile is based upon an accurateestimated age based on last menstrual period. TRANSCRIBED BY: ELECTRONICALLY SIGNED BY: Ciaran Restrepo MD Authorizing ProviderResult TypeResult StatusCorey Halina DOI OB US PROCEDURES Final Result * (ABNORMAL) POCT urinalysis dipstick manually resulted (12/16/2024 9:46 AM EDT) ComponentValueRef RangeTest MethodAnalysis TimePerformed AtPathologist SignatureColor, UAAmberClarity, UAClearGlucose, UATraceNegative - 2000(110) ++++ mg/dLBilirubin, UANegativeNegative - 4(70) +++ mg/dLKetones, UAPositive Negative - 160(16) ++++ mg/dLSpec Grav, UA1.0201 - 1.03Blood, UANegative Negative - 50 Mick/mcLpH, UA6.55 - 9Protein, UATraceNegative - 2000(20) ++++ mg/dLUrobilinogen, UA2.00.2 - 12 mg/dLLeukocytes, UATraceNegative - 500+++ Campos/mcLNitrite, UANegativeNegative - PositiveSpecimen (Source)Anatomical Location / LateralityCollection Method / VolumeCollection TimeReceived Time Urine12/16/2024 9:46 AM EDT Narrative Authorizing ProviderResult TypeResult StatusCorevikram Meade DOPOINT OF CARE TEST ENTER/EDIT ORDERABLESFinal Result documented in this encounter Visit Diagnoses Diagnosis Third trimester ([facility]) state, incidental 31 weeks gestation of ([facility]) Encounter for in vitro fertilization Encounter for assisted reproductive fertility procedure cycle Hemorrhoids, unspecified hemorrhoid type Encounter for in vitro fertilization Encounter for assisted reproductive fertility procedure cycle documented in this encounter Care Teams Team MemberRelationshipSpecialtyStart DateEnd Date Raleigh Collazo MD [address] [place] [address] PCP - GeneralFamily Medicine08/28/22documented as of this encounter
--- OUTSIDE RECORDS SUMMARY | 2025-01-13 09:30 | XMS_ITS | Encounter Summary ---
Author Organization [facility] Address [address] [place] [address] Care Team Providers Care Associate Business Analyst Name Role Phone Raleigh Collazo MD Primary Care Provider [phone] Reason for Visit * ReasonCommentsRoutine Visit Encounter Details DateTypeDepartmentCare Team (Latest Contact Info)Uiwcgmsaozv40/11/2025 9:30 AM ESTRoutine [facility] [address] [place] [id number] Uriel Meade DO [address] [place] [address] 35 weeks gestation of ([facility]); Third trimester ([facility]); Encounter for in vitro fertilization; Hemorrhoids, unspecified hemorrhoid type; Bipolar 1 disorder ([facility]); PTSD (post-traumatic stress disorder) Social History Tobacco UseTypesPacks/DayYears UsedDateSmoking Tobacco: NeverAlcohol [...] friends or relatives?Never02/15/2024How often do you attend mormonism or shinto services?Never02/15/2024o you belong to any clubs or organizations such as mormonism groups, unions, fraternal or athletic isauro ups, or school groups?No02/15/2024How often do you attend meetings of the clubs or organizations you belong to?Never02/15/2024re you , , , , never , or living with a partner?Xjwkanr2702/15/2024 AUDIT-CAnswerDate RecordedQ1: How often do you have [...] housing, medical care, and heating?Not hard at all02/15/2024[facility] [place] of Occupational Health - Occupational Stress QuestionnaireAnswerDate [...] homeless or living in a mcfp (including now)?No02/15/2024Estimated Date of DeliveryComments Yes5Based on Interfaced EDDSex and Gender InformationValueDate Recorded Sex Assigned at BirthNot on fileLegal HocUjzmcn10/15/2023 7:05 PM EDTGender IdentityNot on fileSexual OrientationNot on filedocumented as of this encounter Last Filed Vital Signs Vital SignReadingTime TakenCommentsBlood Pmlaqgiw960/5801/13/2025 9:29 AM EST Pulse--Temperature--Respiratory Rate--Oxygen Saturation--Inhaled Oxygen Concentration--Cebbbu29 kg (139 lb)01/13/2025 9:29 AM ESTHeight--Body Mass Index 22.4402 2:48 PM ESTdocumented in this encounter Progress Notes * Sharijo Gomez, SENIOR FRONT END ENGINEER - 01/13/2025 9:30 AM EST Reason for Appointment: Patient ID: Sue Colón [...] Problems Diagnosis Date Noted Bipolar 1 disorder ([facility]) 11/13/2022 Anxiety 12/21/2022 Asthma ([facility]) 12/21/2022 Attention deficit hyperactivity disorder (ADHD), combined type 12/21/2022 Proteinuria 08/03/2010 PTSD (post-traumatic stress disorder) 12/21/2022 Bipolar affective disorder, current episode hypomanic ([facility]) 12/21/2022 Well woman exam with routine gynecological exam 03/19/2023 Myalgia 02/18/2024 Fallopian tube disorder 03/13/2024 Anovulation 03/13/2024 Female infertility 03/13/2024 Resolved Ambulatory Problems Diagnosis Date Noted No Resolved Ambulatory Problems Past Medical History: Diagnosis Date Abnormal uterine bleeding (AUB) ADHD (attention deficit hyperactivity disorder) Amenorrhea Bilateral sacroiliitis Cervical cancer ([facility]) Chronic fatigue Chronic rhinitis Chronic vaginitis Depression with anxiety Endometriosis Gynecological disorder History of medical problems Infertility counseling Low libido Miscarriage ([facility]) S/P laparoscopy Sciatica, unspecified side Seasonal [...] bipolar disorder Infertility counseling Low libido Miscarriage ([facility]) S/P laparoscopy Sciatica, unspecified side Seasonal allergic rhinitis, unspecified trigger Serous otitis media, unspecified chronicity, unspecified laterality URI (upper respiratory infection) 03[place]01/[place] [facility] [place] Social History Tobacco Use Smoking [...] 03/2020 [facility] DILATION AND CURETTAGE OF UTERUS 03/07/2013 [...] appearance. She is well-developed. Genitourinary: Vulva normal. Cardiovascular: Rate and Rhythm: Normal rate and [...] nursing note reviewed. Exam conducted with a developer programmer analyst present. Vitals: Estimated body mass index is 22.44 kg/m?? as calculated from the following: Height as of 04/14/24: 5' 6 . Weight as of this encounter: 139 lb. BP: 110/58 No LMP recorded. Patient is . Assessment/Plan ICD-10-CM 1. 35 weeks gestation of ([facility]) Z3A.35 POCT urinalysis dipstick manually resulted 2. Third trimester ([facility]) Z34.93 POCT urinalysis dipstick manually resulted CULTURE, GROUP B STREP WITH SUSCEPTIBLITY CULTURE, GROUP B STREP WITH SUSCEPTIBLITY 3. Encounter for in vitro fertilization Z31.83 4. Hemorrhoids, unspecified hemorrhoid type K64.9 5. Bipolar 1 disorder ([facility]) F31.9 6. PTSD (post-traumatic stress disorder) F43.10 Patient is doing well but has complaints of being tired and having maternal discomfort due to . Patient verbalized frequent movement and was instructed to perform kick counts three times per day. labor precautions were given, LARC consent was signed/declined, and GBS was obtained. Cervical check was performed and patient is 1cm dilated. Orders Placed This Encounter Procedures CULTURE, GROUP B STREP WITH SUSCEPTIBLITY POCT urinalysis dipstick manually resulted Follow Up: Patient is to return to office in 1 week for routine OB appointment Documented by Shari Gomez LPN on behalf of: Uriel Meade DO documented in this encounter Plan of Treatment NameTypePriorityAssociated DiagnosesOrder ScheduleCULTURE, GROUP B STREP WITH SUSCEPTIBLITYLabRoutine Third trimester ([facility]) Expected: 01/13/2025, Expires: 01/13/2026documented as of this encounter Procedures Procedure NamePriorityDate/TimeAssociated DiagnosisCommentsPOCT URINALYSIS QFFAYVAMEbuukve82/11/2025 9:36 AM EST 35 weeks gestation of ([facility]) Third trimester ([facility]) documented in this encounter Results * (ABNORMAL) POCT urinalysis dipstick manually resulted (01/13/2025 9:36 AM EST) ComponentValueRef RangeTest MethodAnalysis TimePerformed AtPathologist SignatureColor, UAYellowClarity, UACloudyGlucose, UANegativeNegative - 2000(110) ++++ mg/dLBilirubin, UANegativeNegative - 4(70) +++ mg/dLKetones, UA NegativeNegative - 160(16) ++++ mg/dLSpec Grav, UA1.0151 - 1.03Blood, UA NegativeNegative - 50 Mick/mcLpH, UA7.55 - 9Protein, UAPositiveNegative - 2000(20) ++++ mg/dLUrobilinogen, UA1.00.2 - 12 mg/dLLeukocytes, UAPositive Negative - 500+++ Campos/mcLComment:2+Nitrite, UANegativeNegative - Positive Specimen (Source)Anatomical Location / LateralityCollection Method / Volume Collection TimeReceived OmtzQvbhx20/11/2025 9:36 AM EST Narrative Authorizing ProviderResult TypeResult StatusCorey Halina DOPOINT OF CARE TEST ENTER/EDIT ORDERABLESFinal Result documented in this encounter Visit Diagnoses Diagnosis 35 weeks gestation of ([facility]) Third trimester ([facility]) state, incidental Encounter for in vitro fertilization Encounter for assisted reproductive fertility procedure cycle Hemorrhoids, unspecified hemorrhoid type Bipolar 1 disorder ([facility]) PTSD (post-traumatic stress disorder) Posttraumatic stress disorder documented in this encounter Care Teams Team MemberRelationshipSpecialtyStart DateEnd Date Raleigh Collazo MD [address] [place] [address] PCP - GeneralFamily Medicine08/28/22documented as of this encounter
--- OUTSIDE RECORDS SUMMARY | 2025-01-14 05:00 | XMS_ITS ---
Author Organization [facility] Address [address] [place] [address] Care Team Providers Care Online Health And Fitness Coach Name Role Phone Karis Varela Primary Care Provider Social History Sex Assigned At : Social History Observation Description Sex Assigned At Male Encounters Encounter Location Date Provider Diagnosis [address] [place] [address] 01/14/2025 Karis Varela Mood disorder F39 and Mixed anxiety and depressive disorder F41.8 Assessments Encounter Date Diagnosis (ICD Code) Assessment Notes Treatment Notes Treatment Clinical Notes Section Notes 01/14/2025 Mood disorder (ICD-10 - F39) 01/14/2025Mixed anxiety and depressive disorder (ICD-10 - F41.8) Plan Of Treatment No Information Progress Notes * INDU JORGENSENDOB:1995 ( 29 yo F)Acc No.[id number]:01/14/2025 F/U - Patient Patient: INDU GARCIA :?Karis VarelaDOB:1995???Age:29 Y???Sex: FemaleDate:01/14/2025Phone:[phone]:[address] [place] [address] Assessment: * Assessment: 1.?Mood disorder - F39 (Primary)???2.?Mixed anxiety and depressive disorder - F41.8??? Plan: * Procedure Codes: 9 0834 PSYTX W PT 45 MINUTES Billing Information: * Procedure Codes: 50487 PSYTX W PT 45 MINUTES. Care Plan Details* Problem B H F/U Progress Note PresentAt Appointment:?Patient Session Type:?Face to Face Start Time/End Time:?10:03am - 10:51am Mental Status ExaminationOrientation:?Oriented x 4 Mood:?Anxious Affect:?Congruent Insight/Judgment:?Fair Thought Process:?Flight of Ideas Speech:?Verbose InterventionRisk Assessment:?PT denies all areas of risk. No contrary indications present. Therapy Modality:?cognitive behavioral Interventions:?build rapport;assess safety risks;exploration of relationship problems;reflective listening;supportive reflection Response to Intervention:?Pt and PEDIATRICIAN ACTIVE PRACTICE discussed ongoing relationship problems between her and her . Pt is experiencing contractions and is anxious about being still. PEDIATRICIAN ACTIVE PRACTICE encouraged Pt to have a discussion with him to discuss plans going forward. Progress:?low Additional Information:?Comments :Pt reported to appointment today anxious and in early labor/having contractions. Pt stated that sheis mostly anxious because since her is living with his Mom she is concerned about labor and bringing the baby home without him. She reports that if he doesn't go to the hospital with her,she will be alone. Pt and PEDIATRICIAN ACTIVE PRACTICE discussed talking through options with her to make a plan forhim to move back into the home or next steps. Pt canceled next appointment due to being in early labor, and will call to reschedule after the . Pt will call with any needs until then. PlanRecommended Frequency of Treatment:?as neededComments :Pt will reschedule after she gives . Homework:?family meetings Medication Change:?No change * ign off status: Completed true * Provider: Michael Varela Date: 03/16/2024 Generated for Printing/Faxing/eTransmitting on:?01/21/2025 10:28 PM EST
--- OUTSIDE RECORDS SUMMARY | 2025-01-20 10:00 | XMS_ITS | Encounter Summary ---
Author Organization [facility] Address [address] [place] [address] Care Team Providers Care Chemical Project Engineer Name Role Phone Raleigh Collazo MD Primary Care Provider [phone] Reason for Visit * ReasonCommentsRoutine Visit Encounter Details DateTypeDepartmentCare Team (Latest Contact Info)Qhrtljfgkkp71/18/2025 10:00 AM ESTRoutine [facility] [address] [place] [id number] Uriel Meade DO [address] [place] [address] Third trimester ([facility]); 36 weeks gestation of ([facility]) Social History Tobacco UseTypesPacks/DayYears UsedDateSmoking Tobacco: [...] friends or relatives?Never02/15/2024How often do you attend orthodox or restorationist services?Never02/15/2024o you belong to any clubs or organizations such as orthodox groups, unions, fraternal or athletic isauro ups, or school groups?No12/13/2024How often do you attend meetings of the clubs or organizations you belong to?Never02/15/2024re you , , , , never , or living with a partner?Vhrwdgj0602/15/2024 AUDIT-CAnswerDate RecordedQ1: How often do you have [...] housing, medical care, and heating?Not hard at all02/15/2024[facility] [employer] - Occupational Stress QuestionnaireAnswerDate [...] were you homeless or living in a fpc (including now)?No02/15/2024Estimated Date of DeliveryComments Yes02/12/2025ased on Interfaced EDDSex and Gender InformationValueDate Recorded Sex Assigned at BirthNot on fileLegal ZweNwbeij16/15/2023 7:05 PM EDTGender IdentityNot on fileSexual OrientationNot on filedocumented as of this encounter Last Filed Vital Signs Vital SignReadingTime TakenCommentsBlood Oiczctgu477/6401/20/2025 10:22 AM EST Pulse--Temperature--Respiratory Rate--Oxygen Saturation--Inhaled Oxygen Concentration--Tzcmdh19.5 kg (140 lb)01/20/2025 10:22 AM ESTHeight--Body Mass Index22.602 2:48 PM ESTdocumented in this encounter Progress Notes * Shari Gomez LPN - 01/20/2025 10:00 AM EST Reason for Appointment: Patient ID: [...] affective disorder, current episode hypomanic ([facility]) 12/21/2022 Well woman exam with [...] medical problems Infertility counseling Low libido Miscarriage ([facility]) S/P laparoscopy Sciatica, unspecified side Seasonal [...] bipolar disorder Infertility counseling Low libido Miscarriage ([facility]) S/P laparoscopy Sciatica, unspecified side Seasonal allergic rhinitis, unspecified trigger Serous otitis media, unspecified chronicity, unspecified laterality URI (upper respiratory infection) 03/01/2019 [facility] [place] [place] - ER Social History Tobacco Use Smoking [...] and C - at [facility] DILATION AND CURETTAGE OF UTERUS 03/07/2013 [...] nursing note reviewed. Exam conducted with a ocean export coordinator present. Vitals: Estimated body mass index is 22.6 kg/m?? as calculated from the following: Height as of 04/14/24: 5' 6 . Weight as of this encounter: 140 lb. BP: 102/64 No LMP recorded. Patient is . Assessment/Plan ICD-10-CM 1. Third trimester ([facility]) Z34.93 2. 36 weeks gestation of ([facility]) Z3A.36 POCT urinalysis dipstick manually resulted Assessment/Plan Return OB: Patient presents today for a routine obstetrics appointment. Patient is currently 36w5d . Patient states she is doing well but has complaints of being tired due to current . Patient has verbalizes frequent movement. labor precautions was discussed/given and patient was instructed to perform kick counts three times a day. Orders Placed This Encounter Procedures POCT urinalysis dipstick manually resulted Follow Up: Patient is to return to office in 1 week for routine OB appointment. Documented by Shari Gomez LPN on behalf of: Uriel Meade DO documented in this encounter Plan of Treatment Not on file documented as of this encounter Procedures Procedure NamePriorityDate/TimeAssociated DiagnosisCommentsPOCT URINALYSIS CULKLHSXUtlfezr84/18/2025 10:23 AM EST 36 weeks gestation of ([facility]) documented in this encounter Results * (ABNORMAL) POCT urinalysis dipstick manually resulted (01/20/2025 10:23 AM EST)ComponentValueRef RangeTest MethodAnalysis TimePerformed AtPathologist SignatureColor, UAYellowClarity, UAClearGlucose, UANegativeNegative - 2000(110) ++++ mg/dLBilirubin, UANegativeNegative - 4(70) +++ mg/dLKetones, UA NegativeNegative - 160(16) ++++ mg/dLSpec Grav, UA1.0151 - 1.03Blood, UA NegativeNegative - 50 Mick/mcLpH, UA7.55 - 9Protein, UATraceNegative - 2000(20) ++++ mg/dLUrobilinogen, UA1.00.2 - 12 mg/dLLeukocytes, UA3+Negative - 500+++ Campos/mcLNitrite, UANegativeNegative - PositiveSpecimen (Source)Anatomical Location / LateralityCollection Method / VolumeCollection TimeReceived Time Urine01/20/2025 10:23 AM EST Narrative Authorizing ProviderResult TypeResult StatusCorevikram Meade DOPOINT OF CARE TEST ENTER/EDIT ORDERABLESFinal Result documented in this encounter Visit Diagnoses Diagnosis Third trimester ([facility]) state, incidental 36 weeks gestation of ([facility]) documented in this encounter Care Teams Team MemberRelationshipSpecialtyStart DateEnd Date Raleigh Collazo MD [address] [place] [address] PCP - GeneralFamily Medicine08/28/22documented as of this encounter
--- OUTSIDE RECORDS SUMMARY | 2025-01-21 22:28 | XMS_ITS | Clinical Summary ---
Author Organization [facility] Address [address], [address] [place] [address] Care Team Providers Care Systems Protection Technician Name Role Phone Joe Zuleta DO Primary Care Provider [phone] Allergies Active AllergyReactionsCriticalityNoted DateCommentsDust Mite Bnrtyvk5307/07/2024 Medications MedicationSigDispense QuantityRefillsLast FilledStart DateEnd DateStatus Vit-Fe [...] by mouth 4 times dailyDiscontinued(LIST CLEANUP) Pancrelipase, Bln-Zibi-Wkey, (CREON) 2067-4593 units CPEP Indications:Digestive symptomsTake 1 capsule by [...] (TYLENOL) [address] 1 suppository sgdtpksb61Discontinued(LIST CLEANUP) capsaicin (ZOSTRIX) 0.025 % cream APPLY TOPICALLY THREE TIMES DAILY.Discontinued(LIST CLEANUP) hydrOXYzine HCl (ATARAX) 25 MG tablet Take 1 tablet by mouth every 8 hours as hvqjvx58Discontinued (LIST CLEANUP) Active Problems ProblemNoted DateDiagnosed Date14 weeks gestation of edqmdrwzh98/13/2025PTSD (post-traumatic stress disorder)12/21/2022ipolar affective disorder, current episode xiuzqfgct43/19/2023ttention deficit hyperactivity disorder (ADHD), combined type3CommentsYes Encounters DateTypeDepartmentCare KnzhFsrtbwkmhmf23/21/2025 1:00 PM EDTOffice Visit [facility] [address] [place] [address] Joe Zuleta DO Neck pain (Primary Dx); Chronic bilateral thoracic back pain; Dermoid cyst of skin of nose; Benign skin lesion of bqbmfara87/26/2025Orders Only [address] [phone] Provider, MD Sarbjit from Last 3 Months Immunizations ImmunizationAdministration DatesNext DueDTaP xvslfzw7906/08/1999HPV Quadrivalent (Gardasil)12/13/2006,08/13/2006,06/13/2006Hep A, HAVRIX, VAQTA, (age 12m-18y), IM, 0.5mL11/12/2013,04/20/2010Hep B, ENGERIX-B, RECOMBIVAX-HB, (age - 19y), IM, 0.5mL11/12/2013Influenza Virus Rfelfwt9912/06/2015Influenza Whole 12/31/2012Influenza, FLUARIX, FLULAVAL, FLUZONE (age 6 [...] (1 standard drink = 0.6 oz pure alcohol)[facility] UtilitiesAnswerDate RecordedIn the past 12 months has the [employer], gas, oil, or water [employer] threatened to shut off services in your home?No07/07/2024PHQ-2AnswerDate RecordedPHQ-9 Total Syvmh826Exercise Vital SignAnswerDate RecordedOn average, how many days [...] 07/07/2024CommentsYesSex and Gender InformationValueDate RecordedSex Assigned at EvjyjIyvbyy49/20/2025 7:51 AM EDTLegal LkjVfuscn49/22/2025 2:08 PM EDTGender LgvtobxpQzssry98/20/2025 7:51 AM EDTSexual OrientationNot on file Last Filed Vital Signs Vital SignReadingTime TakenCommentsBlood Dvukdpvy062/6212/23/2024 1:00 PM EDT Zsxjg763312/23/2024 1:00 PM VMZUjqqexklgep67.2 ??C (97.2 ??F)12/23/2024 1:00 PM EDTRespiratory Rate--Oxygen Rewqvpbjse58%12/23/2024 1:00 PM EDTInhaled Oxygen Concentration--Cdcfmq76.7 kg (136 lb)12/23/2024 1:00 PM TBXCyvyfd595.6 cm (5' 6 )12/23/2024 1:00 PM EDTBody Mass Index21.9512/23/2024 1:00 PM EDT Plan of Treatment Health MaintenanceDue DateLast DoneCommentsPolio vaccine (2 of 3 - 4-dose series)/07/1999HIV jknknp2908/29/2009Varicella vaccine (2 of 2 - 13+ 2-dose series)Hepatitis C juvuep4908/29/2012Hepatitis B vaccine (2 of 3 - 19+ 3-dose series)Hepatitis A vaccine (2 of 2 - 2-dose series), 04/20/2010Pap smear06/ DTaP/Tdap/Td vaccine (3 - Td or Tdap), 06/08/1999Cervical cancer vwywyg6208/29/2024HPV (without or with Pap)2024Flu vaccine (#1) 510/05/2015, 12/06/2015, 12/31/2012COVID-19 Vaccine ( season)2024Depression Prugaavdah75/05/315309/07/2024, 07/07/2024 Respiratory Syncytial Virus (RSV) or age 60 yrs+ (1 - 1-dose 75+ series)2069HPV sfgpmacIpsdqusyb41/11/2007, 08/13/2006, 06/13/2006 Meningococcal (ACWY) vaccineAged Out05/29/2008No longer eligible based on patient's age to complete this topicDepression SgggulFpagmfetznfj69/05/2025, 07/07/2024Hib vaccineAged OutNo longer eligible based on patient's age to complete this topicMeningococcal B vaccineAged OutNo longer eligible based on patient's age to complete this topicPneumococcal 0-49 years VaccineAged OutNo longer eligible based on patient's age to complete this topic Procedures Procedure NamePriorityDate/TimeAssociated DiagnosisCommentsUS BIOPHYSICAL PROFILE WO NON STRESS HNTDHPMMyjenlu80/25/2025 8:01 AM EDTfrom Last 3 Months Results * US BIOPHYSICAL PROFILE WO NON STRESS TESTING (11/27/2024 8:01 AM EDT) Anatomical RegionLateralityModalityPelvisOther Narrative Authorizing ProviderResult TypeResult StatusHistorical Provider MDIMG US ORDERABLESFinal Result from Last 3 Months Insurance Care Teams Team MemberRelationshipSpecialtyStart DateEnd Date Joe Zuleta DO [address] [place], [place] [phone] [facility]07/16/24
--- OUTSIDE RECORDS SUMMARY | 2025-01-21 22:28 | XMS_ITS | Clinical Summary ---
Author Organization [facility] Address [facility] [place] [id number] [address] [place] [address] Care Team Providers Care Inspector Subassemblies Name Role Phone Joe Zuleta DO Primary Care Provider [phone] Allergies Active AllergyReactionsCriticalityNoted DateCommentsHouse Dust Mite08/18/2024 Medications [...] total) by mouth in the morning.Active VIT 13-KSGV-AGCLL-DHA ORAL Take by mouth.Active omega-3 acid ethyl [...] 5Active Active Problems ProblemNoted DateDiagnosed DateHyperemesis of dqfkojkaa70/02/2025Marijuana use during nwitayunv10/02/2025Pregnancy resulting from in vitro fertilization in second /02/2025Fetal renal anomaly, single epnrlannm63/02/2025 Circumvallate placenta in third emhflltdn58/02/2025Estimated Date of MztrbfvfNvypnsafCcn61/11/2025Based on Other Basis, Patient had embryo transfer on 05/27/24 with a fresh embryo/oocyte Encounters DateTypeDepartmentCare ZmdeHkljmiioxyc23/13/2025Telephone Maternal- Medicine at [address] [phone] Carolann Nolen RN 12/09/2024 11:30 AM EDTTelemedicine Maternal- Medicine at [address] [phone] Mario Alberto Yung MD 30 weeks gestation of (Primary Dx)12/09/20243679Qdrihc60/03/2025Refill Maternal- Medicine at [address] [phone] Mario Alberto Yung MD 16 weeks gestation of ; Hyperemesis of kyxxvxoad79/02/2025Orders Only [facility] Certified Nurse Personal Clothing Laundry Aide - [address] [phone] Salina Garcia RN renal anomaly, single gestation (Primary Dx); Marijuana use during ; resulting from in vitro fertilization in second trimester; 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 jaaawwohg29/02/1510Jvymzg06/05/2025 8:30 AM EDT Telemedicine Maternal- Medicine at [address] [phone] Mario Alberto Yung MD 16 weeks gestation of ; Hyperemesis of iznzoqfmi82/05/2025Orders Only Maternal- Medicine at [place] [address] [place] [address] Lexi Maya RN Hyperemesis of (Primary Dx); renal anomaly, single gestation; Marijuana use during ; 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; Nausea and vomiting during ; Poor weight gain of , second trimester; In vitro fertilization; 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, antepartum 11/07/20242302Epmkny51Travelfrom Last 3 Months Family History Medical HistoryRelationNameCommentsArthritisFatherLung cancerFatherHeart disease Maternal GrandfatherHypertensionMaternal GrandfatherStrokeMaternal Grandfather CancerMaternal GrandmotherHypertensionMaternal GrandmotherADD / ADHDMother HypothyroidismMotherLung cancerMotherCervical cancerPaternal GrandmotherClotting disorderPaternal GrandmotherHypertensionPaternal GrandmotherRelationNameStatus CommentsFatherMaternal GrandfatherMaternal GrandmotherMotherDeceasedPaternal Grandmother Social History Tobacco UseTypesPacks/DayYears UsedDateSmoking Tobacco: NeverSmokeless Tobacco: Never Tobacco Cessation:Counseling Given: Not Answered Alcohol UseStandard Drinks/WeekCommentsNot Currently0 (1 standard drink = 0.6 oz pure alcohol)ChildcareAnswerDate XzjzgyocDiaozxifpVcwpjfg81/10/2019Employment AnswerDate YsiimusaTszkkbfbkxRmbygmo26/10/2019Hunger ScreeningAnswerDate RecordedWithin the past 12 months we worried whether our food would run out before we got money to buy more.Never True09/02/2024Within the past 12 months the food we bought just didn't last and we didn't have money to get more.Never True09/02/2024Estimated Date of XxdeorziAofyiileAaq93/11/2025Based on Other Basis, Patient had embryo transfer on 05/27/24 with a fresh embryo/oocyte Sex and Gender InformationValueDate RecordedSex Assigned at BirthNot on file Legal CyhJdsfta99/02/2025 12:00 PM EDTGender IdentityNot on fileSexual OrientationNot on file Last Filed Vital Signs Vital SignReadingTime TakenCommentsBlood Cnjicrmi134/7107 8:02 AM EDT Nqmcf759509/02/2024 8:02 AM EDTTemperature--Respiratory Rate--Oxygen Saturation-- Inhaled Oxygen Concentration--Ajrtes52.8 kg (123 lb)10/03/2024 9:04 AM EDTHeight 167.6 cm (5' 6 )10/03/2024 9:04 AM EDTBody Mass Index19.8508 9:04 AM EDT Plan of Treatment Health MaintenanceDue DateLast DoneCommentsDepression Pzppinxvt30/27/2007 DTaP,Tdap and Td Vaccines (3 - Td or Tdap), 06/08/1999 Influenza Gmixfth66, 12/31/2012RSV ( or age 60+ yrs) (1 - Risk 1-dose series)12/18/2024dult BMI Ebdcviyxg19/01/2026 10/03/2024Tobacco Gwxdbkrtx71Pap Smear, 08/27/2023, 03/19/2023 Medical Devices Not on file Procedures Procedure NamePriorityDate/TimeAssociated DiagnosisCommentsUS [facility] OB FOLLOW-UP, 1 WADBZQkjvmdd52/02/2025 9:26 AM EDT Hyperemesis of renal anomaly, single gestation Marijuana use during 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 Anatomical RegionLateralityModalityOB-GYNUltrasoundSpecimen (Source)Anatomical Location / LateralityCollection Method / VolumeCollection TimeReceived Time 12/04/2024 9:12 AM EDT Narrative 12/05/2024 5:30 PM EDT NAME: ??JAMEEL GRIGGS : 1995 SEX: F Accession Number: [id number] ORDERING PHYSICIAN: MARIO ALBERTO YUNG REFERRING PHYSICIAN: MARZENA JARRELL Coding Procedures ? [id number]: Ultrasound, uterus, real time with image documentation, follow up,transabdominal ? approach per fetus Indication resulting from assisted reproductive technology , Known or suspected damage to fetus by drugs , Malformation of placenta, Supervision of high risk -right pelvic kidney. History OB History ? 3. Para 1 ? H1P8V2K9 Current Cell free DNA ?Low risk analysis [...] (oz) ? 9 oz EFW by: ?Hadlock (FGL-LW-AY-FL) Extended Tibia ??47.1 mm 28w 4d 12% Louann Optical Manager ? 2.1 mm CM ? 5.7 mm [...] pelvic kidney again visualized. Recommendations Please see [facility] recommendations from prior clinical and/or ultrasound report [...] GRIGGS : 1995 SEX: F Accession Number: [id number] ORDERING PHYSICIAN: MARIO ALBERTO YUNG REFERRING PHYSICIAN: MARZENA JARRELL Coding Procedures [id number]: Ultrasound, uterus, real time with image documentation, follow up, transabdominal approach per fetus Indication resulting from assisted reproductive technology , Known orsuspected damage to fetus by drugs , Malformation of placenta, Supervision of high risk -right pelvic kidney. History OB History 3. Para 1 A1O2F2L7 Current Cell free DNA Low risk analysis [...] EFW (oz) 9 oz EFW by: Hadlock (RYT-QM-TG-FL) Extended Tibia 47.1 mm 28w 4d 12% Louann Optical Manager 2.1 mm CM 5.7 mm 16% Nicolaides [...] pelvic kidney again visualized. Recommendations Please see [facility] recommendations from prior clinical and/or ultrasoundreport documentation. The patient is scheduled in four weeks for follow up growth ultrasound. Subsequent follow up or other follow up as clinically determined byprimary OB provider unless otherwise specified by [facility]. Results forwarded to ordering provider so they can follow up with thepatient as necessary. Authorizing ProviderResult TypeResult StatusMario Alberto Yung MDIMG ORDERABLESFinal Result from Last 3 Months Insurance Care Teams Team MemberRelationshipSpecialtyStart DateEnd Date Joe Zuleta DO [address] [place] [address] [facility] - [facility]
--- OUTSIDE RECORDS SUMMARY | 2025-01-21 22:28 | XMS_ITS | Clinical Summary ---
Author Organization [facility] Healthcare Address [address] [place] [address] Care Team Providers Care Offset Printer Name Role Phone Raleigh Collazo MD Primary Care Provider [phone] Allergies Active AllergyReactionsCriticalityNoted DateCommentsDust Mite ExtractUnknown 08/28/2022 Medications MedicationSigDispense QuantityRefillsLast FilledStart DateEnd DateStatus budesonide-formoterol (Breyna) 80-4.5 MCG/ACT inhaler Indications:Mild intermittent asthma without complication (HCC)Inhale 2 puffs Daily Rinse mouth with water after use to reduce aftertaste and incidence of candidiasis. Do not swallow. 10.2 g 4Active fish oil concentrate ([place]-3) 1000 MG capsule Indications:Female infertility,Fallopian tube disorder,AnovulationTake [...] 5Active Active Problems ProblemNoted DateDiagnosed DateFallopian tube jnxyeoxn04/09/2025novulation 03/13/2024Female lctregulmnt98/09/3289Zfpgelg76/16/2024 Assessment & Plan (02/18/2024 3:33 PM EST): Dr Collazo put in lab orders and patient will go to [facility] Will call with results Well woman exam with routine gynecological exam03/19/20238912Wmmstfq49/19/2023sthma 12/21/2022ttention deficit hyperactivity disorder (ADHD), combined type 12/21/2022TSD (post-traumatic stress disorder)12/21/2022ipolar affective disorder, current episode trlvzhecc48/19/2023ipolar 1 jcromqnw03/11/2023 Mbpnjyhyjzp72/01/2011Estimated Date of HoxpbkyrPllyziviDnq47/11/2025 Based on Interfaced [place] Encounters DateTypeDepartmentCare JcafBsonxebccra49/18/2025 10:00 AM ESTRoutine [facility] [address] [place] [address] Uriel Meade DO Third trimester ([facility]); 36 weeks gestation of ([facility])01/20/2025amboo flowsheet [facility] [address] [place] [address] Uriel Meade DO 01/16/2025Telephone [facility] [address] [place] [address] Dayana Griffith MA 01/15/2025Telephone [facility] [address] [place] [address] [phone] Dayana Griffith MA 5Clinisync Result Encounter [facility] External Department Unsolicited Uriel Meade, DO 01/13/2025 9:30 AM ESTRoutine [facility] [address] [place] [address] Uriel Meade, DO 35 weeks gestation of ([facility]); Third trimester ([facility]); Encounter for in vitro fertilization; Hemorrhoids, unspecified hemorrhoid type; Bipolar 1 disorder ([facility]); PTSD (post-traumatic stress disorder)01/13/2025linisync Result Encounter [facility] External Department Unsolicited Uriel Meaed, DO 01/13/2025bstract [facility] [address] [place] [address] Uriel Meade, DO 01/13/2025amboo flowsheet [facility] [address] [place] [address] Uriel Meade, DO 01/08/2025Telephone [facility] [address] [place] [address] Uriel Meade, DO 01/01/2025Telephone [facility] [address] [place] [address] Belinda Noble MA 12/31/2024 8:50 AM EDTRoutine [facility] [address] [place] [address] Dary Wilhelm PA Third trimester ([facility]); 33 weeks gestation of ([facility])12/31/2024 8:00 AM EDTAncillary Procedure [facility] [address] [place] [address] Encounter for in vitro heabctpuyhkhr32/24/2025Abstract [facility] [address] [place] [address] Nacho [place], [place] 12/25/2024Telephone [facility] [address] [place] [address] Nacho [place], MA 12/22/2024bstract [facility] [address] [place] [address] Nacho [place], MA 12/22/2024bstract [facility] [address] [place] [address] [place], [place] 12/18/2024Telephone [facility] [address] [place] [address] Uriel Meade, 12/16/2024 9:30 AM EDTRoutine [facility] [address] [place] [address] Uriel Meade, Third trimester ([facility]); 31 weeks gestation of ([facility]); Encounter for in vitro fertilization; Hemorrhoids, unspecified hemorrhoid type12/16/2024amboo flowsheet [facility] [address] [place] [address] Uriel Meade, 12/11/2024bstract [facility] [address] [place] [address] Uriel Meade, DO 12/04/2024bstract [facility] [address] [place] [address] Uriel Meade, DO 12/02/2024 8:50 AM EDTRoutine [facility] [address] [place] [phone] Dolores Caldwell, RACHAEL Anemia, unspecified type (Primary Dx); Third trimester ([facility]); 29 weeks gestation of ([facility]); Bipolar 1 disorder (HCC); PTSD (post-traumatic stress disorder)12/02/2024amb flowsheet [facility] [address] [place] [address] Dolores Caldwell, RACHAEL 11/27/2024bstract [facility] [address] [place] [address] Uriel Meade, DO 11/24/2024bstract [facility] [address] [place] [address] Uriel Meade, 11/24/2024bstract [facility] [address] [place] [address] Uriel Meade, 11/18/2024 8:30 AM EDTRoutine [facility] [address] [place] [address] Uriel Meade, 27 weeks gestation of ([facility]); Second trimester ([facility]); Hyperemesis of ([facility]); resulting from in vitro fertilization in second trimester ([facility]); Breech presentation, single or unspecified fetus ([facility])11/18/2024Telephone [facility] [address] [place] [address] Belinda Noble MA 11/18/2024amb flowsheet [facility] [address] [place] [address] Uriel Meade, DO 11/07/2024bstract [facility] [address] [place] [address] Dayana Griffith MA 11/05/2024Refill [facility] [address] [place] [address] Uriel Meade DO Other acute sinusitis, recurrence not dnngdbpeg03/19/2025 8:50 AM EDTRoutine [facility] [address] [place] [address] Uriel Meade DO 23 weeks gestation of ([facility]); Second trimester ([facility]); Hyperemesis of ([facility]); resulting from in vitro fertilization in second trimester ([facility]); Diabetes mellitus vhovaasba88/19/2025amboo flowsheet [facility] [address] [place] [address] Uriel Meade DO from Last 3 Months Immunizations ImmunizationAdministration DatesNext DueDTaP, Srkxmceflhw08/05/2000HPV, Csmbtustckqm51/11/2007,08/13/2006,06/13/2006Hep A, ped/adol, 2 dose11/12/2013, 04/20/2010Hep B, Adolescent or Tkyumnvkr38/10/2014Hep B, adult05/18/2014, 03/30/2014IPV06/08/1999Influenza Whole12/31/2012Influenza, injectable, quadrivalent, preservative free12/06/2015MMR06/08/1999Meningococcal MCV4P 05/29/2008Tdap05/29/20085952Tzvwkdlyr32/16/2011 Family History Medical HistoryRelationNameCommentsNo Known ProblemsDaughterArthritisFatherLung cancerFatherHeart diseaseMaternal GrandfatherHypertensionMaternal Grandfather StrokeMaternal GrandfatherCancerMaternal GrandmotherHypertensionMaternal GrandmotherADD / ADHDMotherHypothyroidismMotherLung cancerMotherCervical cancer Paternal GrandmotherClotting disorderPaternal GrandmotherHypertensionPaternal GrandmotherADD / ADHDSiblingRelationNameStatusCommentsDaughterAliveFatherAlive Maternal GrandfatherAliveMaternal GrandmotherAliveMotherDeceasedPaternal GrandmotherAliveSiblingAlive Social History Tobacco UseTypesPacks/DayYears UsedDateSmoking Tobacco: Never Tobacco Cessation:Counseling Given: Not Answered Alcohol UseStandard Drinks/WeekCommentsNever0 (1 standard drink = 0.6 oz pure alcohol)caffeine: adcqH3917 Health LiteracyAnswerDate RecordedHow often do you need [...] or relatives?Never 02/15/2024How often do you attend denominational or uatsdin services?Never02/15/2024o you belong to any clubs or organizations such as denominational groups, unions, fraternal or athletic groups, or school groups?No02/15/2024How often do you attend meetings of the clubs or organizations you belong to?Never02/15/2024re you , , , , never , or living with a partner?Vmfegoe5202/15/2024UDIT-CAnswerDate RecordedQ1: How often do you have a [...] housing, medical care, and heating?Not hard at all02/15/2024[facility] [place] of Occupational Health - Occupational Stress QuestionnaireAnswerDate [...] were you homeless or living in a halfway (including now)?No02/15/2024Estimated Date of Delivery TjagkngcOad08/11/2025Based on Interfaced EDDSex and Gender InformationValueDate RecordedSex Assigned at BirthNot on fileLegal BnpUnkifj26/15/2023 7:05 PM EDT Gender IdentityNot on fileSexual OrientationNot on file Last Filed Vital Signs Vital SignReadingTime TakenCommentsBlood Vcqemeoe959/6401/20/2025 10:22 AM EST Sdhnt358404/14/2024 2:48 PM EDKHqoibsgeunf89.9 ??C (98.4 ??F)04/14/2024 2:48 PM ESTRespiratory Rate--Oxygen Fatekepads85%04/14/2024 2:48 PM ESTInhaled Oxygen Concentration--Hwnvzn94.5 kg (140 lb)01/20/2025 10:22 AM HKENhooli875.6 cm (5' 6 )04/14/2024 2:48 PM ESTBody Mass Index22.6004/14/2024 2:48 PM EST Plan of Treatment Health MaintenanceDue DateLast DoneCommentsPneumococcal Vaccine: Pediatrics (0 to 5 Years) and At-Risk Patients (6 to 64 Years) (1 of 2 - PCV)2013 HPV/Flqqvw6308/29/2024OVID-19 Vaccine (1 - season)2024Influenza Vaccine (#1)/05/2015, 12/31/2012Cervical Cancer Igkbuaixm85/24/2028 Pap Smear, 08/27/2023, 03/19/2023, Additional history exists Procedures Procedure NamePriorityDate/TimeAssociated DiagnosisCommentsPOCT URINALYSIS VYAHFDNXOeiitlr69/18/2025 10:23 AM EST 36 weeks gestation of ([facility]) URINE CULTURE, JJVVSFNWngueyc82/12/2025 10:30 PM EST [facility] UA (CLEAN/CATCH) ANIMAL HEALTH TECHNICIAN/MICRO IF IND.Zliaanj0801/14/2025 10:30 PM EST POCT URINALYSIS ADMAHTZAHqviogg38/11/2025 9:36 AM EST 35 weeks gestation of ([facility]) Third trimester ([facility]) STREP GP B CDGOwmojgu96/11/2025 9:25 AM EST POCT URINALYSIS NASEJOLWBvfolhj01/29/2025 8:57 AM EDT 33 weeks gestation of ([facility]) US OB FOLLOW UP TRANSABDOMINAL CIFPNECLWzzfuie53/29/2025 8:47 AM EDT Encounter for in vitro fertilization POCT URINALYSIS FRPMPCJGOidixgu14/14/2025 9:46 AM EDT 31 weeks gestation of ([facility]) POCT URINALYSIS QZFZNICKElemtqv92/30/2025 9:04 AM EDT Third trimester ([facility]) GLUCOSE TOLERANCE, 1 CUJOSgbcqxi42/16/2025 4:18 PM EDT Diabetes mellitus screening WCLKizqdsv19/16/2025 4:18 PM EDT Diabetes mellitus screening POCT URINALYSIS BLUNSHOIZfknubx65/16/2025 8:46 AM EDT 27 weeks gestation of ([facility]) Second trimester ([facility]) POCT URINALYSIS GMDFEUZMFuqnavs42/19/2025 9:04 AM EDT 23 weeks gestation of ([facility]) Second trimester ([facility]) PAP IOSDZMyyebns40/24/2025 12:00 AM EDTfrom Last 3 Months or Most Recently Relevant to Health Maintenance Results * (ABNORMAL) POCT urinalysis dipstick manually resulted (01/20/2025 10:23 AM EST) Only the most recent of7 resultswithin the time period is included. ComponentValueRef RangeTest MethodAnalysis TimePerformed AtPathologist Signature Color, UAYellowClarity, UAClearGlucose, UANegativeNegative - 2000(110) ++++ mg/dLBilirubin, UANegativeNegative - 4(70) +++ mg/dLKetones, UANegativeNegative - 160(16) ++++ mg/dLSpec Grav, UA1.0151 - 1.03Blood, UANegativeNegative - 50 Mick/mcLpH, UA7.55 - 9Protein, UATraceNegative - 2000(20) ++++ mg/dLUrobilinogen, UA1.00.2 - 12 mg/dLLeukocytes, UA3+Negative - 500+++ Campos/mcLNitrite, UANegative Negative - PositiveSpecimen (Source)Anatomical Location / LateralityCollection Method / VolumeCollection TimeReceived DdjeMjied39/18/2025 10:23 AM EST Narrative Authorizing ProviderResult TypeResult StatusCorey Halina DOPOINT OF CARE TEST ENTER/EDIT ORDERABLESFinal Result * URINE CULTURE, ROUTINE (01/14/2025 10:30 PM EST)ComponentValueRef RangeTest MethodAnalysis TimePerformed AtPathologist SignatureURINE CULTURE, ROUTINE ??Urine Culture, Routine TBHURINE CULTURE, ROUTINEMixed urogenital floraTBHURINE CULTURE, ROUTINELess than 10,000 colonies/mLTBHURINE CULTURE, ROUTINEPerformed at: - [facility] HospitalTBHURINE CULTURE, [id number] [place], [place] [id number] CULTURE, ROUTINELab Director: Don Tolentino PhD, Phone: [phone] Specimen (Source)Anatomical Location / LateralityCollection Method / Volume Collection TimeReceived Time01/14/2025 10:30 PM EST01/14/2025 10:47 PM EST Narrative CLINISYNC - 01/16/2025 10:07 PM EST Authorizing ProviderResult TypeResult StatusCorey Halina DOLAB BLOOD ORDERABLES Final ResultPerforming OrganizationAddressCity/State/ZIP CodePhone Number CLINISYNC [facility] * (ABNORMAL) [facility] UA (CLEAN/CATCH) ANIMAL HEALTH TECHNICIAN/MICRO IF IND. (01/14/2025 10:30 PM EST) ComponentValueRef RangeTest MethodAnalysis TimePerformed AtPathologist SignatureCOLOR URINEYELLOWYELLOWTBHCLARITY URINECLEARCLEARTBHSPECIFIC GRAVITY URINE>=1.030(A)1.005 - 1.025TBHPH URINE5.55.0 - 9.0TBHPROTEIN URINETRACE NEG/TRACE mg/dLTBHGLUCOSE URINE UANEGATIVENEGATIVE mg/dLTBHBILIRUBIN URINE NEGATIVENEGATIVETBHKETONES URINETRACE(A)NEGATIVE mg/dLTBHBLOOD URINETRACE-I NEGATIVETBHNITRITE URINENEGATIVENEGATIVETBHUROBILINOGEN URINE1.00.2 - 1.0 EU/dLTBHLEUKOCYTE ESTERASE URINESMALL(A)NEGATIVETBHURINE MICROSCOPIC INDICATED YESTBHSpecimen (Source)Anatomical Location / LateralityCollection Method / VolumeCollection TimeReceived Time01/14/2025 10:30 PM EST01/14/2025 10:47 PM EST Narrative KASANDRANC - 01/14/2025 10:50 PM EST Authorizing ProviderResult TypeResult StatusCorey Halina DOCLINISYNCFinal Result Performing OrganizationAddressCity/State/ZIP CodePhone Number JOHN [facility] * STREP GP B REEMA (01/13/2025 9:25 AM EST)ComponentValueRef RangeTest Method Analysis TimePerformed AtPathologist SignatureSTREP GP B REEMA ??Strep Gp B REEMA TBHSTREP GP B REEMA*ABNORMAL*TBHSTREP GP B NAAPositiveTBHSTREP GP B NAACenters for Disease Control and Prevention (CDC) andTBHSTREP GP B NAAAmerican Congress of Obstetricians and GynecologistsTBHSTREP GP B REEMA(ACOG) guidelines for prevention of group BTBHSTREP GP B NAAstreptococcal (GBS) disease specify co- collection ofTBHSTREP GP B NAAa vaginal and rectal swab specimen to maximizeTBH STREP GP B NAAsensitivity of GBS detection. Per the CDC and ACOG,TBHSTREP GP B NAAswabbing both the lower vagina and rectumTBHSTREP GP B NAAsubstantially increases the yield of detectionTBHSTREP GP B NAAcompared with sampling the vagina alone.TBHSTREP GP B NAAPenicillin G, ampicillin, or cefazolin are indicatedTBHSTREP GP B NAAfor intrapartum prophylaxis of GBSTBHSTREP GP B NAAcolonization. Reflex susceptibility testing should beTBHSTREP GP B REEMA performed prior to use of clindamycin only on GBSTBHSTREP GP B NAAisolates from penicillin-allergic women who areTBHSTREP GP B NAAconsidered a high risk for anaphylaxis. Treatment withTBHSTREP GP B NAAvancomycin without additional testing is warranted ifTBHSTREP GP B NAAresistance to clindamycin is noted.TBH STREP GP B NAAPerformed at: - [facility] OcalaTBHSTREP GP B [id number] [place], [place] [id number] GP B NAALab Director: Don Tolentino PhD, Phone: [phone] (Source)Anatomical Location / LateralityCollection Method / VolumeCollection TimeReceived Time01/13/2025 9:25 AM EST01/13/2025 8:35 PM EST Narrative JOHN - 01/16/2025 3:08 PM EST Authorizing ProviderResult TypeResult StatusCorey Halina DOLAB BLOOD ORDERABLES Final ResultPerforming OrganizationAddressCity/State/ZIP CodePhone Number JOHN [facility] * US OB follow up transabdominal approach [...] Ciaran Restrepo MD Authorizing ProviderResult TypeResult StatusCorey HalinaCranston General Hospital US PROCEDURES Final Result * Glucose tolerance, [...] to Health Maintenance Insurance Care Teams Team MemberRelationshipSpecialtyStart DateEnd Raleigh Collazo MD [address] [place] [address] PCP - GeneralFamily Medicine08/28/22
--- OUTSIDE RECORDS SUMMARY | 2025-01-21 22:28 | XMS_ITS | Encounter Summary ---
Author Organization [facility] Address [address] [place] [address] Care Team Providers Care Boathouse Keeper Name Role Phone Raleigh Collazo MD Primary Care Provider [phone] Encounter Details DateTypeDepartmentCare Team (Latest Contact Info)Alpsbdkalrr83/11/2025amboo flowsheet [facility] [address] [address] Uriel Meade DO [address] Radha Arreaga, [facility]11 Social History Tobacco UseTypesPacks/DayYears UsedDateSmoking Tobacco: NeverAlcohol [...] friends or relatives?Never02/15/2024How often do you attend anabaptist or voodoo services?Never4Do you belong to any clubs or organizations such as anabaptist groups, unions, fraternal or athletic isauro ups, or school groups?No02/15/2024How often do you attend meetings of the clubs or organizations you belong to?Never02/15/2024re you , , , , never , or living with a partner?Tdfpafl4402/15/2024 AUDIT-CAnswerDate RecordedQ1: How often do you have [...] housing, medical care, and heating?Not hard at all02/15/2024Finshriners [facility] [place] of Occupational Health - Occupational Stress QuestionnaireAnswerDate [...] or living in a care home (including now)?No4Estimated Date of DeliveryComments Yes5Based on Interfaced EDDSex and Gender InformationValueDate Recorded Sex Assigned at BirthNot on fileLegal HpfYjgvau62/15/2023 7:05 PM EDTGender IdentityNot on fileSexual OrientationNot on filedocumented as of this encounter Plan of Treatment Not on file documented as of this encounter Visit Diagnoses Not on filedocumented in this encounter Care Teams Team MemberRelationshipSpecialtyStart DateEnd Date Raleigh Collazo MD [address] [place] [address] PCP - GeneralFamily Medicine08/28/22documented as of this encounter
--- OUTSIDE RECORDS SUMMARY | 2025-01-21 22:28 | XMS_ITS | Encounter Summary ---
Author Organization [facility] Address [address] [facility] [place] [address] Care Team Providers Care Reservations Sales Supervisor Name Role Phone Raleigh Collazo MD Primary Care Provider [phone] Encounter Details DateTypeDepartmentCare Team (Latest Contact Info)Tdqknvablps01/06/2025Telephone [facility] [address] [place] [address] Uriel Meade DO [address] Radha Arreaga, [facility]11 Social History Tobacco UseTypesPacks/DayYears UsedDateSmoking Tobacco: [...] friends or relatives?Never02/15/2024How often do you attend taoist or jew services?Never4Do you belong to any clubs or organizations such as taoist groups, unions, fraternal or athletic isauro ups, or school groups?No02/15/2024How often do you attend meetings of the clubs or organizations you belong to?Never4Are you , , , , never , or living with a partner?Jazgzqi9402/15/2024 AUDIT-CAnswerDate RecordedQ1: How often do you have [...] heating?Not hard at all02/15/2024[facility] [place] of Occupational Health - Occupational Stress QuestionnaireAnswerDate [...] were you homeless or living in a longterm (including now)?No4Estimated Date of DeliveryComments Yes5Based on Interfaced EDDSex and Gender InformationValueDate Recorded Sex Assigned at BirthNot on fileLegal ZxvQpyruk95/15/2023 7:05 PM EDTGender IdentityNot on fileSexual OrientationNot on filedocumented as of this encounter Miscellaneous Notes * Telephone Encounter - Abbey Ragsdale LPN - 01/08/2025 9:18 AM EST FYI: Yaima called from [facility] and wanted to update that patient came in for her NST/BPP and this ws reactive and 10/10. documented in this encounter Plan of Treatment Not on file documented as of this encounter Visit Diagnoses Not on filedocumented in this encounter Care Teams Team MemberRelationshipSpecialtyStart DateEnd Date Raleigh Collazo MD [address] [place] [address] PCP - GeneralFamily Medicine08/28/22documented as of this encounter
--- OUTSIDE RECORDS SUMMARY | 2025-01-21 22:28 | XMS_ITS | Encounter Summary ---
Author Organization [facility] Address [address] [facility] [address] [place] [address] Care Team Providers Care Cloth Shrinking Machine Operator Helper Name Role Phone Raleigh Collazo MD Primary Care Provider Encounter Details DateTypeDepartmentCare Team (Latest Contact Info)Zjdnqdgjxjv01/11/2025bstract [facility] [address] [place] [address] Uriel Meade DO [address] Radha Arreaga, [facility]11 Social History Tobacco UseTypesPacks/DayYears UsedDateSmoking Tobacco: NeverAlcohol [...] relatives?Never02/15/2024How often do you attend gnosticist or religion services?Never4Do you belong to any clubs or organizations such as gnosticist groups, unions, fraternal or athletic isauro ups, or school groups?No02/15/2024How often do you attend meetings of the clubs or organizations you belong to?Never4Are you , , , , never , or living with a partner?Jvmssqw2002/15/2024 AUDIT-CAnswerDate RecordedQ1: How often do you have [...] housing, medical care, and heating?Not hard at all02/15/2024[facility] [place] of Occupational Health - Occupational Stress QuestionnaireAnswerDate [...] in a [place] facility (including now)?No4Estimated Date of DeliveryComments Yes5Based on Interfaced EDDSex and Gender InformationValueDate Recorded Sex Assigned at BirthNot on fileLegal FicIivkeq20/15/2023 7:05 PM EDTGender IdentityNot on fileSexual OrientationNot on filedocumented as of this encounter Plan of Treatment Not on file documented as of this encounter Visit Diagnoses Not on filedocumented in this encounter Care Teams Team MemberRelationshipSpecialtyStart DateEnd Date Raleigh Collazo MD [address] [place] [address] PCP - GeneralFamily Medicine08/28/22documented as of this encounter
--- OUTSIDE RECORDS SUMMARY | 2025-01-21 22:28 | XMS_ITS | Patient Health Record ---
Author Organization [facility] es Address [address] [place] [address] Care Team Providers Care Senior Loan Processor Name Role Phone Karis Varela Primary Care Provider [phone] Reason For Referral No Information Social [...] hurting yourself in some wayNot at allTotal Wrlel58Zqjoxiqufexdt Severe Depression Problems Problem Type SNOMED Code ICD Code Onset Dates Problem Status W/U Status Risk Notes Problem Mood disorder (92588379) Mood disorder (F 39) ActiveconfirmedProblemMixed anxiety and depressive disorder (521023022)Mixed anxiety and depressive disorder (F41.8)Activeconfirmed Encounters Encounter Location Date Provider Diagnosis [address] [place] [address] 01/06/2025 Karis Varela Mood disorder F39 and Mixed anxiety and depressive disorder F41.8 [facility] [place] [address] 01/14/2025 Karis Varela Mood disorder F39 and [...] Coverage End Date ANTHEM Primary [address] [place] [address] [id number] INDU JORGENSEN Self - patient is the insured 0
--- OUTSIDE RECORDS SUMMARY | 2025-01-21 22:29 | XMS_ITS | Encounter Summary ---
Author Organization [facility] Address [address] [place] [address] Care Team Providers Care Joint Special [employer] Name Role Phone Raleigh Collazo MD Primary Care Provider [phone] Encounter Details DateTypeDepartmentCare Team (Latest Contact Info)Vcismjxzzah05/14/2025Telephone [facility] [address] [place] [address] Dayana Griffith MA Social History Tobacco UseTypesPacks/DayYears UsedDateSmoking Tobacco: NeverAlcohol [...] friends or relatives?Never02/15/2024How often do you attend rastafari or protestant services?Never4Do you belong to any clubs or organizations such as rastafari groups, unions, fraternal or athletic isauro ups, or school groups?No02/15/2024How often do you attend meetings of the clubs or organizations you belong to?Never4Are you , , , , never , or living with a partner?Yrftfmt3702/15/2024 AUDIT-CAnswerDate RecordedQ1: How often do you have [...] housing, medical care, and heating?Not hard at all02/15/2024[facility] [place] of Occupational Health - Occupational Stress QuestionnaireAnswerDate [...] a penitentiary (including now)?No02/15/2024Estimated Date of DeliveryComments Yes5Based on Interfaced EDDSex and Gender InformationValueDate Recorded Sex Assigned at BirthNot on fileLegal VyjKqjdru58/15/2023 7:05 PM EDTGender IdentityNot on fileSexual OrientationNot on filedocumented as of this encounter Miscellaneous Notes * Telephone Encounter - Dayana Griffith MA - 01/16/2025 10:02 AM EST Patient called regarding a [employer] message left for [employer]. After consulting with [employer], patient wasadvised to apply coconut oil to both the vaginal area and the rash. Patient reports she has alreadybeen applying coconut oil to the rash. Benadryl lotion was also recommended. Patient was advised toproceed to L&D for evaluation if the rash worsens or becomes unbearably itchy. Patient verbalized understanding. documented in this encounter Plan of Treatment Not on file documented as of this encounter Visit Diagnoses Not on filedocumented in this encounter Care Teams Team MemberRelationshipSpecialtyStart DateEnd Date Raleigh Collazo MD [address] [place] [address] PCP - GeneralFamily Medicine08/28/22documented as of this encounter
--- OUTSIDE RECORDS SUMMARY | 2025-01-21 22:29 | XMS_ITS | Clinical Summary ---
Author Organization [facility] Address [address] [place] [address] Phone Care Team Providers Care Roofing Foreman Name Role Phone Joe Zuleta DO Primary [...] Problems ProblemNoted DateDiagnosed Date14 weeks gestation of xdillocrk57/13/2025 Estimated Date of NekccwtzQvknvkwsPsy72/11/2025Date entered prior to episode creation Social History [...] needed for daily living?No08/15/2024 Estimated Date of CwnymlymHcqqhzywBdj69/11/2025Date entered prior to episode creationSex and Gender InformationValueDate RecordedSex Assigned at SfdwpUasytx39/13/2025 2:14 AM EDTLegal ZrrEsjgyr40/11/2025 9:17 AM EDTGender DrmfbjqrIosadz19/13/2025 2:14 AM EDTSexual OrientationNot on file Last Filed Vital Signs Vital SignReadingTime TakenCommentsBlood Myqzdrcm056/8208/15/2024 3:53 PM EDT Eyeop461708/15/2024 3:53 PM XMXNtgmvmtziwc72.9 ??C (98.4 ??F)08/15/2024 3:53 PM EDTRespiratory Kyge203108/15/2024 3:53 PM EDTOxygen Acmemvemvw48%08/15/2024 3:53 PM EDTInhaled Oxygen Concentration--Riahvu34.6 kg (116 lb)08/14/2024 10:08 PM MOOBxzprl841.6 cm (5' 6 )08/14/2024 10:08 PM EDTBody Mass Index18.72008/14/2024 10:08 PM EDT Plan of Treatment Health MaintenanceDue DateLast DoneCommentsHIV Wqowzswgi53/27/1995Lipid Panel 1994IPV Vaccines (2 of 3 - 4-dose series)Hepatitis C Zzmoyiplc83/27/2013Pneumococcal Vaccine: Pediatrics and At-Risk Adult Patients (1 of 2 - PCV)2013Hepatitis A Vaccines (2 of 2 - 2-dose series)05/12/2014 11/12/2013, 04/20/2010Hepatitis B Vaccines (3 of 3 - 19+ 3-dose series) , 03/30/2014, 11/12/2013Cervical Cancer Ntiyhxxzf17/27/2016 HPV/Lkzpbt6408/30/2015Pap Smear08/30/2015DTaP/Tdap/Td Vaccines (3 - Td or Tdap) , 06/08/1999Yearly Adult Jxkjjtux49/ Influenza Vaccine (#1)/05/2015, 12/31/2012COVID-19 Vaccine ( - season)2024RSV High Risk: (Elderly (60+) or Population) (1 - Risk 1-dose series)12/18/2024Zoster Vaccines (1 of 2)2044 04/20/2010MMR VadafvkzRbiwmkyhm84/05/2000HPV VzmaswuyLzznntdwp71/11/2007, 08/13/2006, 06/13/2006Meningococcal VaccineAged Out05/29/2008No longer eligible based on patient's age to complete this topicHIB VaccinesAged OutNo longer eligible based on patient's age to complete this topicRotavirus VaccinesAged Out No longer eligible based on patient's age to complete this topic Insurance Advance Directives For more information, please contact: [phone] (Available ) * Full Code (Latest Code Status on File) Date ActivatedDate InactivatedComments08/15/2024 3:05 AMQuestionAnswerComments Plan of Care:* Code Status Discussion Not Completed Decision Maker:* Provider Rationale:* Patient condition does not warrant discussion Care Teams Team MemberRelationshipSpecialtyStart DateEnd Date Joe Zuleta DO [address] [place] [address] [facility]08/13/24
--- OUTSIDE RECORDS SUMMARY | 2025-01-21 22:29 | XMS_ITS | Encounter Summary ---
Author Organization [facility] Address [address] [place] [address] Care Team Providers Care Brim Pouncer Machine Operator Name Role Phone Raleigh Collazo MD Primary Care Provider [phone] Encounter Details DateTypeDepartmentCare Team (Latest Contact Info)Qtsarshmhlg44/12/2025linisync Result Encounter [facility] Unsolicited Uriel Meade, DO [address] [place] [address] Social History Tobacco UseTypesPacks/DayYears UsedDateSmoking Tobacco: NeverAlcohol [...] relatives?Never02/15/2024How often do you attend shinto or advent services?Never4Do you belong to any clubs or organizations such as shinto groups, unions, fraternal or athletic isauro ups, or school groups?No02/15/2024How often do you attend meetings of the clubs or organizations you belong to?Never4Are you , , , , never , or living with a partner?Hmhecvx4802/15/2024 AUDIT-CAnswerDate RecordedQ1: How often do you have [...] care, and heating?Not hard at all02/15/2024[facility] [place] of Occupational Health - Occupational Stress QuestionnaireAnswerDate [...] or living in a care home (including now)?No12/13/2024Estimated Date of DeliveryComments Yes5Based on Interfaced EDDSex and Gender InformationValueDate Recorded Sex Assigned at BirthNot on fileLegal XklWgjftj58/15/2023 7:05 PM EDTGender IdentityNot on fileSexual OrientationNot on filedocumented as of this encounter Plan of Treatment Not on file documented as of this encounter Procedures Procedure NamePriorityDate/TimeAssociated DiagnosisCommentsURINE CULTURE, JUNLMGUEygerli19/12/2025 10:30 PM EST [facility] UA (CLEAN/CATCH) POLYSTYRENE MOLDING MACHINE TENDER/MICRO IF IND.Bztvhts4101/14/2025 10:30 PM EST documented in this encounter Results * URINE CULTURE, ROUTINE (01/14/2025 10:30 PM EST)ComponentValueRef RangeTest MethodAnalysis TimePerformed AtPathologist SignatureURINE CULTURE, ROUTINE ??Urine Culture, Routine TBHURINE CULTURE, ROUTINEMixed urogenital floraTBHURINE CULTURE, ROUTINELess than 10,000 colonies/mLTBHURINE CULTURE, ROUTINEPerformed at: [facility] LabCaro CenterTBHURINE CULTURE, [id number] [place], [place] [address]IBEAYVDB CULTURE, ROUTINELab Director: Don Tolentino PhD, Phone: [phone] Specimen (Source)Anatomical Location / LateralityCollection Method / Volume Collection TimeReceived Time01/14/2025 10:30 PM EST01/14/2025 10:47 PM EST Narrative [facility] - 01/16/2025 10:07 PM EST Authorizing ProviderResult TypeResult StatusCorey Halina DOLAB BLOOD ORDERABLES Final ResultPerforming OrganizationAddressCity/State/ZIP CodePhone Number CLINIS[facility]NC [facility] * (ABNORMAL) [facility] UA (CLEAN/CATCH) POLYSTYRENE MOLDING MACHINE TENDER/MICRO IF IND. (01/14/2025 10:30 PM EST) ComponentValueRef RangeTest MethodAnalysis TimePerformed AtPathologist SignatureCOLOR URINEYELLOWYELLOWTBHCLARITY URINECLEARCLEARTBHSPECIFIC GRAVITY URINE>=1.030(A)1.005 - 1.025TBHPH URINE5.55.0 - 9.0TBHPROTEIN URINETRACE NEG/TRACE mg/dLTBHGLUCOSE URINE UANEGATIVENEGATIVE mg/dLTBHBILIRUBIN URINE NEGATIVENEGATIVETBHKETONES URINETRACE(A)NEGATIVE mg/dLTBHBLOOD URINETRACE-I NEGATIVETBHNITRITE URINENEGATIVENEGATIVETBHUROBILINOGEN URINE1.00.2 - 1.0 EU/dLTBHLEUKOCYTE ESTERASE URINESMALL(A)NEGATIVETBHURINE MICROSCOPIC INDICATED YESTBHSpecimen (Source)Anatomical Location / LateralityCollection Method / VolumeCollection TimeReceived Time01/14/2025 10:30 PM EST01/14/2025 10:47 PM EST Narrative [facility] - 01/14/2025 10:50 PM EST Authorizing ProviderResult TypeResult StatusCorey Halina DOCLINISYNCFinal Result Performing OrganizationAddressCity/State/ZIP CodePhone Number [facility] documented in this encounter Visit Diagnoses Not on filedocumented in this encounter Care Teams Team MemberRelationshipSpecialtyStart DateEnd Date Raleigh Collazo MD [address] [place] [address] PCP - GeneralFamily Medicine08/28/22documented as of this encounter
--- OUTSIDE RECORDS SUMMARY | 2025-01-21 22:29 | XMS_ITS | Encounter Summary ---
Author Organization [facility] Address [address] [facility] [place] [address] Care Team Providers Care Truck Car And Bus Cleaner Name Role Phone Raleigh Collazo MD Primary Care Provider [phone] Encounter Details DateTypeDepartmentCare Team (Latest Contact Info)Ylgyjkcjfxu68/18/2025amboo flowsheet [facility] [address] [place] [address] Uriel Meade DO [address], [facility] Social History Tobacco UseTypesPacks/DayYears UsedDateSmoking Tobacco: NeverAlcohol [...] relatives?Never02/15/2024How often do you attend buddhism or sikh services?Never4Do you belong to any clubs or organizations such as buddhism groups, unions, fraternal or athletic isauro ups, or school groups?No02/15/2024How often do you attend meetings of the clubs or organizations you belong to?Never02/15/2024re you , , , , never , or living with a partner?Rjtazok0302/15/2024 AUDIT-CAnswerDate RecordedQ1: How often do you have [...] housing, medical care, and heating?Not hard at all02/15/2024[facility] [place] of Occupational Health - Occupational Stress QuestionnaireAnswerDate [...] were you homeless or living in a detention (including now)?No4Estimated Date of DeliveryComments Yes5Based on Interfaced EDDSex and Gender InformationValueDate Recorded Sex Assigned at BirthNot on fileLegal AfrEqgfbj32/15/2023 7:05 PM EDTGender IdentityNot on fileSexual OrientationNot on filedocumented as of this encounter Plan of Treatment Not on file documented as of this encounter Visit Diagnoses Not on filedocumented in this encounter Care Teams Team MemberRelationshipSpecialtyStart DateEnd Date Raleigh Collazo MD [address] [place] [address] PCP - GeneralFamily Medicine08/28/22documented as of this encounter
--- OUTSIDE RECORDS SUMMARY | 2025-01-21 22:29 | XMS_ITS | Encounter Summary ---
Author Organization [facility] Address [address] [place] [address] Care Team Providers Care Sour Bleaching Pleater Name Role Phone Raleigh Collazo MD Primary Care Provider [phone] Encounter Details DateTypeDepartmentCare Team (Latest Contact Info)Eoinmmkluso18/11/2025linisync Result Encounter [facility] Unsolicited Uriel Meade, DO [address] [place] [address] Social History Tobacco UseTypesPacks/DayYears UsedDateSmoking [...] friends or relatives?Never02/15/2024How often do you attend yarsanism or amish services?Never4Do you belong to any clubs or organizations such as yarsanism groups, unions, fraternal or athletic isauro ups, or school groups?No02/15/2024How often do you attend meetings of the clubs or organizations you belong to?Never4Are you , , , , never , or living with a partner?Rfbamjo2302/15/2024 AUDIT-CAnswerDate RecordedQ1: How often do you have [...] housing, medical care, and heating?Not hard at all02/15/2024[facility] [place] of Occupational Health - Occupational Stress QuestionnaireAnswerDate [...] homeless or living in a prison (including now)?No12/13/2024Estimated Date of DeliveryComments Yes5Based on Interfaced EDDSex and Gender InformationValueDate Recorded Sex Assigned at BirthNot on fileLegal FjgJuvwqb83/15/2023 7:05 PM EDTGender IdentityNot on fileSexual OrientationNot on filedocumented as of this encounter Plan of Treatment Not on file documented as of this encounter Procedures Procedure NamePriorityDate/TimeAssociated DiagnosisCommentsSTREP GP B NAARoutine 01/13/2025 9:25 AM EST documented in this encounter Results * STREP GP B REEMA (01/13/2025 9:25 [...] is noted.[facility] STREP GP B NAAPerformed at: [facility] Betsy LayneTBHSTREP GP B [id number] [place], [place] [id number] GP B NAALab Director: Don Tolentino PhD, Phone: [phone] (Source)Anatomical Location / LateralityCollection Method / VolumeCollection TimeReceived Time01/13/2025 9:25 AM EST01/13/2025 8:35 PM EST Narrative [facility] - 01/16/2025 3:08 PM EST Authorizing ProviderResult TypeResult StatusCorey Halina DOLAB BLOOD ORDERABLES Final ResultPerforming OrganizationAddressCity/State/ZIP CodePhone Number [facility] documented in this encounter Visit Diagnoses Not on filedocumented in this encounter Care Teams Team MemberRelationshipSpecialtyStart DateEnd Date Raleigh Collazo MD [address] [place] [address] PCP - GeneralFamily Medicine08/28/22documented as of this encounter
--- OUTSIDE RECORDS SUMMARY | 2025-01-21 22:29 | XMS_ITS | CCD ---
Author Organization [facility] Care Team Providers Care Gaming Floor Supervisor Name Role Phone YASMIN MARTINEZ Consulting Unavailable [...] Attending Unavailable Carolyne Collazo Primary Care Physician [phone] GWEN DANIELSON Attending Unavailable Mohelena Mohamad A. Referring Unavailable Mouchli, Mohamad A. Admitting Unavailable Payam Knutsonamaluisito ATyrone Attending Unavailable Alex Knutson Attending Unavailable Carolyne Collazo Referring Unavailable Mohelena, Mohamad ATyrone Referring Unavailable Mohelena Mohamad ATyrone Attending Unavailable Alex Knutson ATyrone Admitting Unavailable Carolyne Collazo MD Primary Care Provider Carolyne Collzao Attending Unavailable Carolyne Collazo Admitting Unavailable Carolyne [...] Unavailable MD JADE LEDBETTER Admitting Unavailable MD AJDE LEDBETTER Referring Unavailable MD JADE LEDBETTER Attending [...] Unavailable Jade Ledbetter Referring Unavailable Carolyne Collazo [facility] Care Unavailable Song DO, [facility] MILAN LERNER Attending Unavailable SONG, [facility] Unavailabl e MILAN LERNER Referring Unavailable SONG, [facility] Unavailabl e Josh Gilbert Attending Unavailable Samantha QUINN Admitting Unavailable Basim Diaz Consulting Unavailable Bk Garduno Attending Unavailable Lucina, Saundra Peace Attending Unavailable Saundra Verdugo Admitting Unavailable Unavailable Primary Care Provider Unavailabl e SONG, [facility] Unavailabl e ROSMERY SANDOVAL Admitting Unavailable ROSMERY SANDOVAL Attending Unavailable MAYRA DOBSON Referring Unavailable SONG, [facility] Unavailabl e PRABHU FRIEDMAN Referring Unavailable [facility] Unavailabl e Song GARDNER, Yasmin Primary Care Provider Song DO, Yasmin Primary Care Provider JADE LEDBETTER Admitting Unavailable JADE LEDBETTER Attending Unavailable JADE LEDBETTER Referring Unavailable DIANA, MILLIEA P Referring Unavailable SONG, [facility] Care Unavailable DOCSUSHANT, NIKOLINA P Referring Unavailable SONG, [facility] Care Unavailable DOCSUSHANT, NIKOLINA P Referring Unavailable SONG, [facility] Care Unavailable Uriel MEADE Attending Unavailable Uriel MEADE Admitting Unavailable Lucina, Saundra Peace Attending Unavailable Saundra Verdugo Admitting Unavailable URIEL MEADE Referring Unavailable SONG [facility] Care Unavailable SONG, YASMNI Referring Unavailable SONG, [facility] Unavailable URIEL MEADE R Referring Unavailable SONG, [facility] Unavailable DIANA, MARIO ALBERTO P Attending Unavailable URIEL MEADE R Referring Unavailable HALINA, URIEL R Referring Unavailable MARIA T LAMBERT Attending Unavailable HALINA, URIEL R Referring Unavailable SONG, KERSEY Primary Care Unavailable KRUPA JONES Attending Unavailable [...] [No Known Medication Allergies]Propensity to adverse reactions (disorder)[facility] Repository (20 sources)House dust miteAllergy to -[phone] Healthcare (20 sources)House Dust Mite; Translations: [HOUSE DUST MITE]Propensity to adverse reactions to [id number] Medications Current Medications MedicationDrug Class(es)DatesSig (Normalized)Sig (Original)acetaminophen 650 mg rectal suppository (2 sources)Start: 76-07-0068dputycntolvtx (Tylenol) 650 mg suppository Indications: Nausea and vomiting, unspecified vomiting type , Chest pain, unspecified type Insert 1 suppository (650 mg) into the rectum every 6 hours. 60 suppository 08/16/2024 ActiveStart: 47-44-2928byql 650 mg rectal route every six hours as needed for xwme900 mg, rectal, Every 6 hours scheduled, First dose on Sun08/15/24 at 1800, If ordered PRN for pain, nurse is permitted to administer this medication for higher pain scores based on patient preference? YesAdvair HFA 115 mcg-21 mcg/inh inhalation aerosol with adapter (3 sources)Start: 97-24-9572gutq 2 puff(s) by inhalation twice dailyAdvair HFA 115 mcg-21 mcg/inh inhalation aerosol with adapter 2 puff(s), Inhalation, BID Shortness of breath or wheezing, Refill(s) 6 Start Date: 09/13/23 Status: Ordered Start: 07-44-4805hqxr 2 puff(s) by inhalation twice dailyAdvair HFA 115 mcg-21 mcg/inh inhalation aerosol with adapter 2 puff(s), Inhalation, BID, Refill(s)6 Start Date: 09/13/23 Status: OrderedALPRAZolam 0.5 mg oral tablet (20 sources)BenzodiazepineStart: 56-85-8059kitp 1 tablet by mouth three times daily as needed for anxietyXanax 0.5 mg Tab 0.5 mg = 1 tab(s), Oral, TID, PRN for anxiety, Refills(s) 0 Start Date: 09/13/23 Status: OrderedStart: 09-09-2019 End: 88-52-2717hpxw 0.5 mg by mouth twice dailyXanax 0.5 mg, Oral, BID, Refills(s) 0, Anxiety Start Date: 09/09/19 Status: Orderedazithromycin 250 mg oral tablet (3 sources)Macrolide AntimicrobialStart: 11-05-2024 End: 44-93-5223uwfzcpgararr (Zithromax Z-Lucho) 250 MG tablet Indications: Other acute sinusitis, recurrence not specified As directed 6 tablet 11/05/2024 11/18/2024 Discontinuedbenzocaine 15 mg / menthol 3.6 mg oral lozenge (1 source)Standardized Chemical AllergenStart: lozenge, Mouth/Throat, Every 2 hour PRN, sore throat, Starting on Sun08/15/24 at 1540 bisacodyl 10 mg rectal suppository (1 source)Stimulant LaxativeStart: 26-71-9057yxgl 10 mg rectal route every twenty-four hours as neededblood-glucose sensor (FREESTYLE PABLITO 3 PLUS SENSOR) device (15 sources)Start: 11-59-0058cqsmw-glucose sensor (FREESTYLE PABLITO 3 PLUS SENSOR) device Indications: 16 weeks gestation of , Hyperemesis of , Cyclical vomiting with nausea Wear for 15 d and change 2 each 4 ActiveBoost/Ensure (1 source)Start: 16-83-7218Yyprz/Ensure Boost/Ensure, 8oz BID x 2-4 weeks. Disp #24 (twenty-four), BIDAC, Print Requisition, Supply Start Date: 06/22/24 Status: Ordered Repeat number: 1 Indications: Mild hyperemesis gravidarum;60 actuat budesonide 0.08 mg/actuat / formoterol fumarate 0.0045 mg/actuat metered dose inhaler (20 sources)Corticosteroid, beta2-Adrenergic AgonistStart: 08-23-2023 End: 10-75-3312qxed 2 puff(s) by mouth once dailybudesonide-formoterol (Breyna) [...] 80-4.5 MCG/ACT inhaler (20 sources)Start: 08-23-2023 End: 07-12-2012vlgk 2 puff(s) by mouth once dailybudesonide-formoterol (Breyna) 80-4.5 MCG/ACT inhaler Indications: Mild intermittent asthma withoutcomplication (CMS/HCC) Inhale 2 puffs Daily Rinse mouth with water after use to reduce aftertaste and incidence of candidiasis. Do not swallow. 10.2 g 2 08/23/2023 08/22/2024 ActivebusPIRone hydrochloride 5 mg oral tablet (20 sources)Start: 07-30-2024 End: 59-39-9042lvaf 1 tablet by mouth in the morningbusPIRone (Buspar) 5 MG tablet Indications: Anxiety, generalized Take 1 tablet (5 mg) by mouth in the morning and 1 tablet (5 mg) before bedtime. 60 tablet 1 07/30/2024 08/26/2024 Discontinuedcalcium carbonate 500 mg chewable tablet (1 source)Start: 40-94-4879imcx 1 tablet by mouth every six hours as needed1 tablet, oral, Every 6 hours PRN, heartburn, Starting on Sun08/15/24 at 0305 calcium carbonate 120 mg/ml / magnesium hydroxide 27 mg/ml / simethicone 8 mg/ml oral suspension (1 source)Start: 59-37-0414zfdr 10 mL by mouth every eight hourscalcium [...] meq/ml injectable solution (2 sources)Start: 08-14-2024 End: 43-77-4447bkbm 125 mL intravenously every lqhq357 mL/hr, intravenous, Continuous, Starting on Sun08/15/24 at 0310, For 1 daycapsaicin 0.75 mg/ml topical cream (2 sources)Start: 02-09-4668yvwmo 1 dose topically three times dailyTopical, 3 times daily, First dose on Sun08/15/24 at 1600, Apply to: abdomen or chest cholecalciferol 0.025 mg oral tablet (20 sources)Vitamin DStart: 74-22-3097ljwc 1 tablet by mouth once daily cholecalciferol [...] 50 mg oral capsule (3 sources)Alkylating DrugStart: 26-39-9979tgjypwhozfbemmmi 50 mg oral capsule Refills(s) 0, Other (see comment) Start Date: 09/13/23 Status: Ordered docosahexaenoic acid 120 mg / eicosapentaenoic acid 180 mg oral capsule (20 sources)Start: 01-22-2024 End: 24-99-0679ynup 1 capsule by mouth once dailyfish oil concentrate (Eunice-3) 1000 MG capsule Indications: Female infertility , Fallopian tube disorder , Anovulation Take 1 capsule (1 g) by mouth Daily 30 capsule 11 02/21/2024 02/20/2025 Activedoxylamine succinate 25 mg oral tablet (16 sources)Start: 30-47-3550rlzm 1 tablet by mouth once daily as needed for sleepdoxylamine (UNISOM) 25 mg tablet Indications: 16 weeks gestation of , Hyperemesis of Take 1 tablet (25 mg total) by mouth nightly as needed for sleep. 90 tablet 1 09/02/2024 Activeestradiol 2 mg oral tablet (2 sources)EstrogenStart: 20-28-6899tqhe 1 tablet by mouth once dailyestradiol (ESTRACE) 2 mg tablet Take 1 tablet by mouth once daily. x 1 week for breakthrough bleeding 7 tablet 2 01/21/2021 ActiveEthinyl Estradiol / Norethindrone (2 sources)EstrogenStart: 14-11-0176bkzp 1 tablet by mouth once daily, then take 0.05 tablet by mouth onceNorethindrone Acet-Ethinyl Est (LOESTRIN 03/24, ,) 1- 20 mg-mcg per tablet Take 1 tablet by mouth once daily. in continuous fashion 90 tablet 3 03/21/2021 Active2 ml famotidine 10 mg/ml injection (4 sources)Histamine-2 Receptor AntagonistStart: 20-05-173038 mg, intravenous, Administer over 2 Minutes, Every 12 hours scheduled, First dose on Sun08/15/24 a t 2100Start: 08-14-2024 End: 47-91-637600 mg, intravenous, Administer over 2 Minutes, Once, On Sun08/14/24 at 2305, For 1 doseStart: 11-19-1675eqff 1 tablet by mouth twice daily famotidine 20 mg Tab 20 mg = 1 tab(s), Oral, BID, # 60 tab(s), Refills(s) 0, Pharmacy: [id number], 167, cm, 06/19/24 10:50:00 EDT, Height/Length Dosing, 48.9, kg, 06/19/24 10:50:00 EDT, Weight Dosing Start Date: 06/21/24 Status: Ordered Quantity: 60.0 Unit: tab(s) Repeat number: 1Start: 07-20-2023 End: 64-14-632529 mg, intravenous, Once, On Sun07/20/23 at 1910, For 1 doseFish Oils (1 source)Start: 54-34-8190iyfm 500 mg by mouth once dailyFish Oil 500 mg, Oral, Daily, Refill(s) 0 Start Date: 06/19/24 Status: Ordered Repeat number: 11 ml hydrALAZINE hydrochloride 20 mg/ml injection (1 source)Arteriolar VasodilatorStart: 04-56-4556lwasLNRfcap hydrochloride 25 mg oral tablet (2 sources)AntihistamineStart: 78-62-2440hpsb 25 mg by mouth once25 mg, oral, Once, On Sun08/15/24 at 2030, For 1 doseStart: 71-70-7334ewjp 1 tablet by mouth every eight hours for anxietyhydrOXYzine HCL (Atarax) 25 mg tablet Indications: Nausea and vomiting, unspecified vomiting type ,Chest pain, unspecified type Take 1 tablet (25 mg) by mouth every 8 hours if needed for itching or anxiety. 20 tablet 08/15/2024 Activelabetalol hydrochloride 5 mg/ml injectable solution (2 sources)beta-Adrenergic BlockerStart: 27-53-8426Rgbjv: 08-14-2024 End: mg, intravenous, Once, On Sun08/14/24 at 2305, For 1 dose, Give at rate of 10 mg/min.Lidocaine (2 sources)Antiarrhythmic, Amide Local AnestheticStart: 32-31-0198Xrmwc: 08-13-2024 End: 17-15-9770ahkg 15 mL by mouth once15 mL, oral, Once, On Sun08/13/24 at 0945, For 1 gwdpzzqfecggz-fxghdixausZKMXQ-Kgkxay 1:1:1 Magic Mouthwash (1 source)Start: 43-96-712039 mL, Swish & Swallow, Every 6 hours PRN, stomatitis, mucositis, other, GERD, Starting on Sun08/15/24 at 1306magnesium hydroxide 80 mg/ml oral suspension (1 source)Start: 32-44-5091gbddmnwyd hydrochloride 25 mg chewable tablet (16 sources)AntiemeticStart: 63-08-5823aeexvknpd (ANTIVERT) 25 mg tablet Indications: 16 weeks gestation of , Hyperemesis of Chew 1 tablet (25 mg total) and swallow 3 (three) times a day as needed for dizziness or nausea. 30 tablet 09/02/2024 Active2 ml metoclopramide 5 mg/ml injection (10 sources)Dopamine-2 Receptor AntagonistStart: 39-80-664033 mg, intravenous, Every 6 hours scheduled, First dose on Sun08/15/24 at 0600Start: 08-14-2024 End: 00-37-534363 mg, intravenous, Once, On Moriah 08/14/24 at 2355, For 1 dose Start: 02-18-1472ckjt 1 tablet by mouth four times dailyReglan 5 mg Tab 5 mg = 1 tab(s), Oral, QID, # 120 tab(s), Refills(s) 0, Pharmacy: [facility] #[id number], 167, cm, 06/19/24 10:50:00 EDT, Height/Length Dosing, 48.9, kg, 06/19/24 10:50:00 EDT, Weight Dosing Start Date: 06/21/24 Status: Ordered Quantity: 120.0 Unit: tab(s) Repeat number: 1 End: 00-13-4749nxrounkxbkpxyq (Reglan) 10 MG tablet Take 10 mg by mouth 07/30/2024 DiscontinuedMiraLax 3350 Oral Pwdr for Recon 249 gram (6 sources)Start: 36-81-0139EeooGyx 3350 Oral Pwdr for Recon 249 gram 17 gram, Oral, Daily, # 527 gram, Refills(s) 0, Pharmacy:[facility] #[id number], 168, cm, 09/15/19 7:03:00 EDT, Height/Length Measured, 52, kg, 09/15/19 7:03:00 EDT, Weight Measured Start Date: 09/16/19 Status: Ordered Quantity: 527.0 Unit: g Repeat number: 1Start: 79-39-3888HjtqYwt 3350 Oral Pwdr for Recon 249 gram 17 gram, Oral, Daily, # 527 gram, Refills(s) 0, Pharmacy:[facility] #[id number], 168, cm, 09/15/19 7:03:00 EDT, Height/Length Measured, 52, kg, 09/15/19 7:03:00 EDT, Weight Measured Start Date: 09/16/19 Status: Orderednaloxone hydrochloride 40 mg/ml nasal spray (1 source)Opioid AntagonistStart: 33-41-0161qqzrfjmq 4 mg/0.1 mL nasal spray 4 mg, Nasal, As Directed, for suspected overdose symptoms, # 1 kit(s), Refills(s) 0, Pharmacy: [facility], 167, cm, 06/19/24 10:50:00 EDT, Height/Length Dosing, 48.9, kg, 06/19/24 10:50:00 EDT, Weight Dosing Start Date: 06/22/24 Status: Ordered Quantity: 1.0 Unit: kit(s) Repeat number: 1NIFEdipine 10 mg oral capsule (1 source)Dihydropyridine Calcium Channel BlockerStart: 98-29-3505HTVOGemfau 5 mg disintegrating oral tablet (20 sources)Atypical AntipsychoticStart: 58-06-3659rqtn 2.5 mg by mouth twice daily2.5 mg, oral, 2 times daily, First dose on Sun08/15/24 at 2100Start: 58-38-7602kpqb 1 tablet by mouth every six hoursolanzapine 2.5 mg Tab 2.5 mg = 1 tab(s), Oral, q6hr, Refills(s) 0 Start Date: 08/14/24 Status: Ordered Repeat number: 1Start: 99-43-8093azse 2.5 mg by mouth twice daily2.5 mg, oral, 2 times daily, First dose on Sun08/15/24 at 0900, On hold since Sun08/15/2024 at 1557 until manually unheldtake 1 tablet by mouth every eight hours as needed OLANZapine (ZyPREXA) 2.5 mg tablet Take 1 tablet (2.5 mg total) by mouth every 8 (eight) hours as needed. Activeomega-3 acid ethyl esters (retirement) 1000 mg oral capsule (17 sources)take 1 capsule by mouth at bedtimeomega-3 acid ethyl esters (LOVAZA) 1 gram capsule Take 2 capsules (2 g total) by mouth in the morning and 2 capsules (2 g total) before bedtime. Activeondansetron 8 mg disintegrating oral tablet (20 sources)Serotonin-3 Receptor AntagonistStart: 13-61-9343pxbq 1 tablet by mouth every eight hours [...] via IV Push, administer over 3-5 minutes.Start: 20-52-6387qojr 1 tablet by mouth every eight hours as needed for nausea and vomitingondansetron (Zofran) 8 MG tablet Take 8 mg by mouth every 8 (eight) hours if needed for nausea or vomiting 08/14/2024 ActiveStart: 08-13-2024 End: mg, intravenous, Once, On Sun08/13/24 at 0930, For 1 dose, When administering via IV Push, administer over 3-5 minutes.Start: 08-04-2024 End: 44-12-0954omhl 1 tablet by mouth four times daily as neededondansetron ODT (Zofran-ODT) 8 mg disintegrating tablet Dissolve 1 tablet (8 mg) in the mouth 4 times a day as needed. 08/04/2024 08/15/2024 DiscontinuedStart: 06-19-2024 End: 67-55-8299dpje 1 tablet by mouth every six hours for nauseaondansetron ODT (Zofran-ODT) 4 MG disintegrating tablet Indications: Nausea and vomiting, unspecified vomiting type Take 1 tablet (4 mg) by mouth every 6 (six) hours if needed for nausea or vomiting 30 tablet 2 06/19/2024 07/19/2024 ActiveStart: 07-20-2023 End: 61-91-3268exhs 1 tablet by mouth every eight hours for nauseaondansetron ODT (Zofran-ODT) 4 mg disintegrating tablet Indications: Nausea and vomiting, unspecified vomiting type Take 1 tablet (4 mg) by mouth every 8 hours if needed for nausea or vomiting for upto 7 days. 20 tablet 07/20/2023 07/27/2023 Active End: 63-80-3621hfhz 1 tablet by mouth every eight hours as needed for nausea and vomitingondansetron (ZOFRAN) 4 mg tablet Take 1 tablet (4 mg total) by mouth every 8 (eight) hours as needed for nausea or vomiting. 09/02/2024 Discontinued (Alternate therapy)oxyCODONE hydrochloride 5 mg oral capsule (1 source)Opioid AgonistStart: 56-33-7742xztr 1 capsule by mouth every twelve hours as needed for painoxyCODONE 5 mg Cap 5 mg = 1 cap(s), Oral, q12hr, PRN for pain, # 6 cap(s), Refills(s) 0, Pharmacy: [facility], 167, cm, 06/19/24 10:50:00 EDT, Height/Length Dosing, 48.9, kg, 06/19/24 10:50:00 EDT, Weight Dosing Start Date: 06/22/24 Status: Ordered Quantity: 6.0 Unit: cap(s) Repeat number: 1 Indications: Mild hyperemesis gravidarum; Vomiting, unspecified;pantoprazole 20 mg delayed release oral tablet (20 sources)Proton Pump InhibitorStart: 09-02-2024 End: 53-94-9800dtru 1 tablet by mouth in the morningpantoprazole (PROTONIX) 20 mg EC tablet Indications: 16 weeks gestation of , Hyperemesis of TAKE 1 TABLET(20 MG) BY MOUTH IN THE MORNING 90 tablet 12/07/2024 ActiveStart: 27-54-415762 mg, intravenous, Daily, First dose on Sun08/15/24 at 0900, Reconstitute each 40 mg vial with 10 mL NS to make 4 mg/mL solution.Start: 46-75-3153Fflpvlmaemqp [address] Tab 30 EA, 0 Refill(s), Refills(s) 0 Start Date: 09/13/23 Status: OrderedStart: 08-23-2023 End: 77-90-4553lvzt 1 tablet by mouth once daily before mealtimepantoprazole (ProtoNix) 40 mg EC tablet Indications: Nausea and vomiting, unspecified vomiting typeTake 1 tablet (40 mg) by mouth once daily in the morning. Take before meals. Do not crush, chew, orsplit. 30 tablet 08/13/2024 08/13/2025 ActiveStart: 07-20-2023 End: 52-94-2868ralt 1 tablet by mouth once dailypantoprazole (ProtoNix) [...] For 1 dose, CV Medicationspolyethylene glycol 3350 73151 mg powder for oral solution (20 sources)Osmotic LaxativeStart: 47-86-3166Bljjmint 19 ([place]) (1 source)Start: 61-65-8840Yhhfcryu 19 ([place]) See Instructions, Refill(s) 0, Oral Start Date: 06/19/24 Status: Ordered Repeat number: 1prenatal no115/iron/folic acid ( 19 ORAL) (3 sources)Start: 02-21-2024 End: 34-47-7880spbu 1 tablet by mouth once dailyprenatal no115/iron/folic acid ( 19 ORAL) Take 1 tablet by mouth once daily. 02/21/2024 02/20/2025 ActivePRENATAL VIT 75-YFIF-HPOCR-DHA ORAL (17 sources) VIT 27-DAXP-VLVXI-DHA ORAL Take by mouth. ActivePrenatal Vit-Fe Fumarate-FA ( Vitamins) 28-0.8 MG tablet (20 sources)Start: 02-21-2024 End: 72-67-2109spei 1 tablet by mouth once dailyPrenatal Vit-Fe Fumarate-FA ( Vitamins) 28-0.8 MG tablet Indications: Female infertility , Fallopian tube disorder , Anovulation Take 1 tablet by mouth Daily 30 tablet 11 02/21/2024 02/20/2025 ActiveStart: 01-22-2024 End: 00-43-3551zpny 1 tablet by mouth once dailyPrenatal Vit-Fe Fumarate-FA ( Vitamins) 28-0.8 MG tablet Indications: Female infertility , Fallopian tube disorder , Anovulation Take 1 tablet by mouth Daily 30 tablet 11 01/22/2024 01/21/2025 Activeprenatal vitamin (iron-folic) tablet 1 tablet (1 source)Start: 95-51-1164Pxegfsmodavzjkyj (1 source)PhenothiazineStart: 14-27-2527ikfw 1 tablet by mouth every six hours as neededprochlorperazine (Compazine) tablet 10 mgProtonix 40 mg Tab-EC (5 sources)Start: 82-99-6462vkpv 1 tablet by mouth once daily 30 minutes before breakfastProtonix 40 mg Tab-EC 40 mg = 1 tab(s), Oral, Daily, Take 30 minutes before breakfast, # 30 tab(s),Refills(s) 1, Pharmacy: [facility] #[id number], 168, cm, 09/09/19 8:18:00 EDT, Height/Length Measured, 52, kg, 09/09/19 8:18:00 EDT, Weight Measured Start Date: 09/09/19 Status: Orderedpyridoxine hydrochloride 25 mg oral tablet (16 sources)Start: 00-12-1834xrpb 1 tablet by mouth three times dailypyridoxine, vitamin B6, (B-6) 25 mg tablet Indications: 16 weeks gestation of , Hyperemesis of Take 1 tablet (25 mg total) by mouth 3 (three) times a day. 90 tablet 1 09/02/2024 ActiveQUEtiapine 50 mg oral tablet (20 sources)Atypical AntipsychoticStart: 94-33-6947yimu 50 mg by mouth twice daily50 mg, oral, 2 times daily, First dose on Sun08/15/24 at 119780 hr scopolamine 0.0139 mg/hr transdermal system (1 source)AnticholinergicStart: patch, transdermal, Administer over 72 Hours, Every 72 hours, First dose on Sun08/15/24 at 0310, Wash hands before and after application to avoid drug contact with eyes. Apply to hairless area of skin behind the ear. Once patch has been affixed behind ear, do not touch while being worn.sennosides, retirement 1.76 mg/ml oral solution (1 source)Start: 21-91-8186bfkh 5 mL by mouth twice daily5 mL, oral, 2 times daily, First dose on Sun08/15/24 at 0900simethicone 80 mg chewable tablet (17 sources)Start: 99-94-5111lrldryoohww (MYLICON) 80 mg chewable tablet Indications: 16 weeks gestation of , Hyperemesis of Chew 1 tablet (80 mg total) and swallow every 6 (six) hours as needed for flatulence. 30 tablet 1 09/02/2024 ActiveStart: 38-82-6756eyoehhhglz 100 mg/ml oral suspension (20 sources)Aluminum ComplexStart: 07-02-2024 End: 83-84-9273cqzq 1 g by mouth at bedtimesucralfate (Carafate) [...] bedtime. 1200 mL 3 07/02/2024 08/01/2024 ActiveStart: 38-95-6745Mlsfhmgj 1 g/10 mL Susp-Oral 1 gm = 10 mL, Oral, QIDACHS, # 400 mL, Refills(s) 0, [id number], 167, cm, 06/19/24 10:50:00 EDT, Height/Length Dosing, [...] injection.thiamine 50 mg oral tablet (17 sources)Start: 00-60-6683dleq 2 tablets by mouth in the morningthiamine HCl (VITAMIN B-1) 50 mg tablet Indications: 16 weeks gestation of , Hyperemesis of Take 2 tablets (100 mg total) by mouth in the morning. 90 tablet 1 09/02/2024 ActiveStart: 40-39-9690214 mg, intravenous, Daily, First dose on Sun08/15/24 at 1105, For IV push use, administer over 1-2minutes.witch mark 500 mg/ml medicated pad (5 sources)Start: 40-54-5378rjifh mark-glycerin (Tucks) pad Indications: Hemorrhoids, unspecified hemorrhoid type Apply topically if needed for irritation 50 each 2 12/16/2024 ActiveZofran ODT 4 mg Tab-Dis (1 source)Start: 07-65-7689bkct 1 tablet by mouth every six hoursZofran ODT 4 mg Tab-Dis 4 mg = 1 tab(s), Oral, q6hr, # 60 tab(s), Refills(s) 0, [id number], 167, cm, 06/19/24 10:50:00 EDT, Height/Length Dosing, 48.9, kg, 06/19/24 10:50:00 EDT, Weight Dosing Start Date: 06/21/24 Status: Ordered Quantity: 60.0 Unit: tab(s) Repeat number: 1 Completed/Discontinued Medications MedicationDrug Class(es)DatesSig (Normalized)Sig (Original)aluminum hydroxide 40 mg/ml / magnesium hydroxide 40 mg/ml / simethicone 4 mg/ml oral suspension (1 source)Start: 08-13-2024 End: 08-48-7927ubmq 30 mL by mouth once30 mL, oral, Once, On Sun08/13/24 at 0945, For 1 doseARIPiprazole 5 mg oral tablet (20 sources)Atypical AntipsychoticStart: 04-14-2024 End: 30-01-9289nkfz 1 tablet by mouth once dailyARIPiprazole (Abilify) [...] IV push, max rate of 25 mg/min.Start: 20-07-1446upne 25 mg intravenously every six hours25 mg, intravenous, Every 6 hours, First dose on Sun08/15/24 at 0310, If giving IV push, max rate of 25 mg/min.Start: 08-15-2024 End: 87-61-067707 mg, intravenous, Once, On Sun08/15/24 at 0000, For 1 dose, If giving IV push, max rate of 25 mg/min.Start: 07-20-2023 End: 63-31-040138 mg, intravenous, Once, On Sun07/20/23 at 1455, For 1 dose, If giving IV push, max rate of 25 mg/min.Haloperidol (3 sources)Typical AntipsychoticStart: 08-15-2024 End: mg, intramuscular, Once, On Sun08/15/24 at 1615, For 1 dose, Patients receiving IV haloperidol should be on continuous cardiac monitoring. Start: 08-15-2024 End: 83-14-3069Ekpxlboh on Sun08/15/24 at 1600, For 1 dose, [...] with radiology test) (1 source)Start: 07-11-2023 End: 09-18-1619fz contrast (will be provided with radiology test) [...] 0900, For 1 dose Start: 07-20-2023 End: 35-21-555632 mg, intravenous, Once, On Sun07/20/23 at 1650, For 1 dose lamoTRIgine 25 mg oral tablet (7 sources)Mood Stabilizer, Anti-epileptic AgentStart: 18-95-0388gtnr 1 tablet by mouth twice dailylamotrigine 25 mg Tab 42 EA, 0 Refill(s), TAKE 1 TABLET BY MOUTH DAILY FOR 14 DAYS THEN TAKE 1 TABLET BY MOUTH TWICE DAILY, Refills(s) 0 Start Date: 09/13/23 Status: OrderedStart: 07-26-2023 End: 52-66-6884zeavOYUqohh (LaMICtal) 25 MG tablet Indications: Bipolar 1 disorder (CMS/HCC) 25 mg daily x 14 days, then 25 mg twice daily 42 tablet 1 07/26/2023 12/03/2023 Kbctumdvorcx14 ml magnesium sulfate 40 mg/ml injection (1 source)Start: 08-15-2024 End: g, intravenous, at 25 mL/hr, Administer over 2 Hours, Once, On Sun08/15/24 at 0310, For 1 dosemethylphenidate hydrochloride 20 mg oral tablet (12 sources)Central Nervous System StimulantStart: 08-23-2023 End: 45-28-6632qhyn 1 tablet by mouth once daily at bedtimeRitalin 20 mg oral tablet 40 EA, 0 Refill(s), TAKE 1 TABLET BY MOUTH EVERY MORNING AND 1 TABLET EVERY NIGHT AT BEDTIME, Refills(s) 0 Start Date: 09/13/23 Status: OrderedStart: 61-66-6381iuuc 1 tablet by mouth twice dailyRitalin 20 mg oral tablet 20 mg = 1 tab(s), Oral, BID, Refills(s) 0, Other (see comment) Start Date: 09/09/19 Status: OrderedmetroNIDAZOLE 500 mg oral tablet (2 sources)Nitroimidazole AntimicrobialStart: 01-16-2024 End: 10-37-6738zqtb 1 tablet by mouth in the morningmetroNIDAZOLE (Flagyl) 500 MG tablet Indications: Vaginal odor Take 1 tablet (500 mg) by mouth in the morning and 1 tablet (500 mg) before bedtime. Do all this for 7 days. 14 tablet 01/16/2024 01/23/2024 Expired1 ml morphine sulfate 4 mg/ml injection (2 sources)Opioid AgonistStart: 07-20-2023 End: mg, intravenous, Once, On Sun07/20/23 at 1815, For 1 arth839 ml potassium chloride 0.2 meq/ml injection (1 source)Start: 08-15-2024 End: 40-83-5399eskp 20 mEq intravenously every two hours20 mEq, intravenous, at 50 mL/hr, Administer over 2 Hours, Every 2 hours, First dose on Sun08/15/24at 0310, For 2 doses, Total dose is 40 mEq via peripheral line.promethazine (Phenergan) 12.5 mg in sodium chloride 0.9% 50 mL IV (2 sources)Start: 08-15-2024 End: 26-03-537324.5 mg, intravenous, Administer over 15 Minutes, Once, On Sun08/15/24 at 1015, For 1 doseStart: 08-13-2024 End: 78-10-134224.5 mg, intravenous, Administer over 15 Minutes, Once, On Sun08/13/24 at 1050, For 1 akai1214 ml sodium chloride 9 mg/ml injection (1 source)Start: 08-13-2024 End: ,000 mL, intravenous, at 999 mL/hr, Administer over 1 Hours, Once, On Sun08/13/24 at 0930, For 1 doseubidecarenone 100 mg / vitamin e 5 unt oral capsule (3 sources)Start: 02-21-2024 End: 26-40-1112fgwc 1 capsule by mouth once dailycoenzyme Q-10 100 MG capsule Indications: Female infertility , Fallopian tube disorder , Anovulation Take 1 capsule (100 mg) by mouth Daily 30 capsule 3 02/21/2024 03/22/2024 Problems Active Problems Problem ClassificationProblemDateDocumented DateEpisodic/ChronicAbdominal pain (20 sources)Pain in pelvis; Translations: [Visceral abdominal pain]Onset: 032816-96-8839KhdxvbxaUuiumvblu pain (1 source)Pelvic and perineal pain; Translations: [PELVIC AND PERINEAL PAIN] Onset: 27-76-7149Begfhdg disorders (20 sources)Anxiety disorder, unspecified; Translations: [Anxiety]Onset: 146081-94-6918ChtqbroIkbadn (20 sources)Unspecified asthma, uncomplicated; Translations: [Asthma]Onset: 424605-56-7860DmyekdzKktdvgqtn-xsmqkxa, conduct, and disruptive behavior disorders (11 sources)Attention deficit hyperactivity glfrwkim40-77-0455IwegczmFjuobubkf- deficit, conduct, and disruptive behavior disorders (20 sources)Attention deficit hyperactivity disorder, combined type; Translations: [Attention-deficit hyperactivity disorder, combined type]Onset: 839104-35-7390FljgpfrSotdkx of cervix (11 sources)Malignant tumor of tyeuuc56-30-8168VhrawtyHajpmhoogksyn and procreative management (8 sources)Encounter for assisted reproductive fertility procedure cycle; Translations: [Patient encounter status]Onset: 813322-68-0706Gwfftzlc Deficiency and other anemia (13 sources)Anemia; Translations: [Anemia, unspecified]00-38-9718Sgfluqxf Endometriosis (12 sources)Endometriosis of pelvic peritoneum; Translations: [Endometriosis (clinical)]Onset: 169974-01-7814UlngeooXbadfovnvl disorders (4 sources)Gastroesophageal reflux disease; Translations: [Gastro-esophageal reflux disease without esophagitis]Onset: 097330-03-2669KbaxhpuHxgtowvlvn disorders (13 sources)Esophagitis; Translations: [Esophagitis, unspecified without bleeding]Onset: 52-58-1885MfxmfbmtXwjngd infertility (20 sources)Female infertility; Translations: [Female infertility, unspecified] Onset: 545578-81-5206AmtvdycTnyhg and electrolyte disorders (1 source)Hypokalemia; Translations: [Hypokalemia]Onset: 71-39-7527Spsnisif Headache; including migraine (1 source)Cyclical vomiting zfsvjugp44-80-1705ChadkoyQukfaziuip during ; abruptio placenta; placenta previa (2 sources)Antepartum hemorrhage; Translations: [Hemorrhage in early , unspecified]19-56-6863MgoextdqTzsjnlygraf (2 sources)Hemorrhoids; Translations: [Unspecified hemorrhoids]12-16-2024 EpisodicImmunizations and screening for infectious disease (2 sources)Exposure to sexually transmissible disorder; Translations: [Contact with and (suspected) exposure to infections with a predominantly sexual mode of transmission]52-18-4336IcrzxcvlMhanngzvvzay diseases of female pelvic organs (1 source)Chronic salpingitis; Translations: [CHRONIC SALPINGITIS]Onset: 97-63-0354YvmrlmhEsscmrn and fatigue (11 sources)Dbsfnuf46-42-4579UjzusfuhSetordegffn; malpresentation (2 sources)Breech presentation; Translations: [Maternal care for breech presentation, not applicable or unspecified]23-63-5264JapveaevEouayrxox disorders (16 sources)Excessive and frequent menstruation with regular cycle; Translations: [Amenorrhea]Onset: 356542-09-2058QgjxkixZsxmqalzadivh mental health disorders (12 sources)Psychosomatic factor in physical condition; Translations: [Psychological and behavioral factors associated with disorders or diseases classified elsewhere]Onset: 76-07-4911WavuioyUwuo disorders (20 sources)Bipolar disorder, unspecified; Translations: [Bipolar disorder] Onset: 01-73-7231HylbmubXwrhfx and vomiting (20 sources)Nausea and vomiting; Translations: [Nausea with vomiting, unspecified]Onset: 028076-21-8243OvrmvkdvRkolsfccbnk chest pain (4 sources)Chest pain; Translations: [Chest pain, unspecified]Onset: 08-14-2024 77-39-2543HroflxpyYamzz acquired deformities (13 sources)Acquired rilafweeu83-93-2319KrlhrrwPsxmf aftercare (1 source)Other assisted (current) drug therapy; Translations: [OTH CUSTODIAL CURRENT DRUG THERAPY]Onset: 27-06-0488PmphlikaVshgt aftercare (1 source)Long-term current use of drug therapy; Translations: [Other technician terminal and repeater (current) drug therapy]Onset: 37-86-9616AudmwomiSdjip aftercare (2 sources)Post-discharge follow-up; Translations: [Encounter for follow-up examination after completed treatment for conditions other than malignant neoplasm]66-40-0676EyolfodcRdckf and unspecified benign neoplasm (12 sources)Prolactinoma; Translations: [Benign neoplasm of pituitary gland] 81-25-6849ZhiuhzriPhmyl and unspecified benign neoplasm (1 source)Benign neoplasm of pituitary gland; 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)] Onset: 35-62-5810MaghqpkcHogtb complications of (1 source)Mild hyperemesis gravidarum; Translations: [Mild hyperemesis gravidarum]Onset: 90-91-6500ZvyalmxlWmfef complications of (6 sources)Low maternal weight gain; Translations: [Low weight gain in , second trimester]10-04-8533AjquwfgnOpovx complications of (1 source)Bipolar disorder; Translations: [Other mental disorders complicating , second trimester]75-26-8356GpzomxqsCmfhf complications of (1 source)Other mental disorders complicating , unspecified trimester; Translations: [Mental disorders of mother, antepartum condition or complication] 98-10-9989JodxholqSmmgv complications of (3 sources)Vomiting of , unspecified; Translations: [Unspecified vomiting of , unspecified as to episode of care or not applicable] Onset: 587400-08-4386AegxobfvDaunr disorders of stomach and duodenum (1 source)Cyclical vomiting syndrome; Translations: [Cyclical vomiting syndrome unrelated to migraine]77-29-5723LoenuaqzPoahm endocrine disorders (12 sources)Disorder of pituitary gland; Translations: [Disorder of pituitary gland, unspecified]26-91-3540SyhltnuQebjq endocrine disorders (1 source)Disorder of pituitary gland, unspecified; Translations: [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HCC)]Onset: 89-33-7148VwgxntsCrfxu female genital disorders (11 sources)Abnormal uterine mwujditr40-10-3914AwlkhcxUxlov female genital disorders (2 sources)Vaginal odor; Translations: [Other specified noninflammatory disorders of vagina]19-48-2474HquctqpqIoyuv gastrointestinal disorders (12 sources)Heartburn; Translations: [Heartburn]Onset: 55-29-2124FthlosftMolab gastrointestinal disorders (1 source)Functional disorder of intestine; Translations: [Other specified functional intestinal disorders]Onset: 99-69-7552CkunknrcBhqcr non-traumatic joint disorders (1 source)Other specified arthritis, left hip; Translations: [OTHER SPECIFIED ARTHRITIS LEFT HIP]Onset: 74-47-3499VrwdxaaOodzz non-traumatic joint disorders (1 source)Other specified arthritis, right hip; Translations: [OTHER SPECIFIED ARTHRITIS RIGHT HIP]Onset: 29-02-0228SbxmepoRmepk non-traumatic joint disorders (11 sources)Bilateral arthritis of sacroiliac fiklx65-57-8019DfbivhiGuitq nutritional; endocrine; and metabolic disorders (1 source)Abnormal weight loss; Translations: [Abnormal weight loss]Onset: 44-47-0254JklllzigUgcvn and delivery including normal (17 sources)Normal ; Translations: [Encounter for supervision of normal , unspecified, first trimester]Onset: 41-57-4023CcelgyagVudyc upper respiratory disease (11 sources)Chronic tmxalcvz15-26-5593TyfweliRwgqp upper respiratory disease (11 sources)Seasonal allergic -50-3390YvzyumbOarqp upper respiratory disease (13 sources)Vocal cord -52-4266UdcsbuaeQomugzdxejgazq and other problems of amniotic cavity (2 sources)Subchorionic hematoma; Translations: [Other specified disorders of amniotic fluid and membranes, first trimester, not applicable or unspecified] 04-23-8022AinjspgpCzlmgttp codes; unclassified (4 sources)Procedure and treatment not carried out, unspecified reason; Translations: [PROC AND TX NOT CARRIEDOUT UNS REASON]Onset: 05-82-9091Daqhosfd Residual codes; unclassified (11 sources)History of jkzdquioimo16-28-3921LmmoakktZbbwrirg codes; unclassified (2 sources)Gestation period, 11 weeks; Translations: [11 weeks gestation of ]66-62-3104WptvljmaCwbhfisv codes; unclassified (4 sources)Gestation period, 15 weeks; Translations: [15 weeks gestation of ]Onset: 183621-68-6526PfdpuelfFwjnympv codes; unclassified (2 sources)Gestation period, 14 weeks; Translations: [14 weeks gestation of ]Onset: 212920-29-8299ZsgwbtddBxslwskj codes; unclassified (1 source)15 weeks gestation of ; Translations: [15 weeks gestation of ([facility])]Onset: 23-12-4585IbcrgyajEvoguhxy codes; unclassified (6 sources)Gestation period, 16 weeks; Translations: [16 weeks gestation of ]97-28-0610DjyleiqdFbygvugv codes; unclassified (2 sources)Gestation period, 20 weeks; Translations: [20 weeks gestation of ]27-87-0709UmlpafctMuktyaku codes; unclassified (2 sources)Gestation period, 23 weeks; Translations: [23 weeks gestation of ]37-20-4745DwqctljkAdnzqjqs codes; unclassified (2 sources)Gestation period, 27 weeks; Translations: [27 weeks gestation of ]48-03-6761CibqrrvoQvcnbkzc codes; unclassified (2 sources)Gestation period, 29 weeks; Translations: [29 weeks gestation of ]59-36-1590AnjptqorXbitcvho codes; unclassified (1 source)Gestation period, 30 weeks; Translations: [30 weeks gestation of ]41-38-6330IkamzrjzEkfzdhid codes; unclassified (1 source)30 weeks gestation of ; Translations: [30 weeks gestation of ]Onset: 13-76-0709IvjqexmaWhoegnsu codes; unclassified (2 sources)Gestation period, 31 weeks; Translations: [31 weeks gestation of ]17-42-4454OyegaerwBoujanhx codes; unclassified (2 sources)Gestation period, 33 weeks; Translations: [33 weeks gestation of ]37-65-6367JuqzaivjUqwylpkxllm; intervertebral disc disorders; other back problems (11 sources)Hyevxtnr33-56-8424JnamkjxtRmubkuaipip (11 sources)Zsdwiozkoor09-67-0984EkjzxtjvGhrchelfe-hjflrgx disorders (2 sources)Cannabis abuse; Translations: [Cannabis abuse with other cannabis- induced disorder]Onset: 52-20-1185SlpcwpyPvlgvpm on above:Added secondary to documentation in Social History.Unclassified (1 source)COVID-19; Translations: [COVID-19]Onset: 01-11-2341Bsyrkskcttly (15 sources)PregnancyOnset: 09-12-2012 Resolved: 061703-31-3663Nmruapflevsk (1 source)Maternal care for other (suspected) abnormality and damage, genitourinary anomalies, not applicable or unspecified; Translations: [Maternal care for other (suspected) abnormality and damage, genitourinary anomalies, not applicable or unspecified]Onset: 09-03-2024 Unclassified (1 source)IVF pregnancyOnset: 65-68-4821Iqsjzxdgamab (1 source)Med ManagementOnset: 09-02-2024 Past or Other Problems Problem ClassificationProblemDateDocumented DateEpisodic/ChronicGastritis and duodenitis (14 sources)Gastritis; Translations: [Gastritis, unspecified, without bleeding] Onset: 651154-83-2089OoyucygcKzjxiqvhhojbp symptoms and ill-defined conditions (20 sources)Proteinuria; Translations: [Proteinuria, unspecified]Onset: 380023-86-9917KdxfgslwNwaivbhuyaci diseases of female pelvic organs (12 sources)Female pelvic peritoneal adhesions (postinfective); Translations: [Chronic vaginitis]Onset: 903975-66-1165PgduydlrXgwif and unspecified benign neoplasm (11 sources)Benign neoplasm of pituitary glandOnset: EpisodicOther complications of ; puerperium affecting management of mother (20 sources)Anomaly of kidney; Translations: [ renal anomaly, single gestation]Onset: 350771-26-9863LylbylzxKohlv complications of (20 sources)Hyperemesis gravidarum; Translations: [Mild hyperemesis gravidarum] Onset: 377548-75-7800FeueevgpEskyi complications of (20 sources)Placenta circumvallata; Translations: [Circumvallate placenta, second trimester]Onset: 658001-68-3236OyifolcgSnafo complications of (20 sources)Conceived by in vitro fertilization; Translations: [Supervision of resulting from assisted reproductive technology, second trimester] Onset: 470557-26-4105JybkgsufQylir complications of (3 sources)Mild hyperemesis gravidarum; Translations: [Mild hyperemesis gravidarum]Onset: 01-67-0332StwgnbutFzvqj complications of (1 source)Circumvallate placenta, second trimester; Translations: [Circumvallate placenta, second trimester]Onset: 08-84-4221HfyhgkatDyuzx complications of (2 sources)Low weight gain in , second trimester; Translations: [Low weight gain in , secondtrimester]Onset: 92-92-7721UeqzwbqbOicso connective tissue disease (20 sources)Muscle pain; Translations: [Myalgia, unspecified site]Onset: 603918-23-1908PcrxtvngJyczg female genital disorders (20 sources)Fallopian tube disorder; Translations: [Noninflammatory disorder of ovary, fallopian tube and broadligament, unspecified]Onset: 743583-53-3697 EpisodicOther nutritional; endocrine; and metabolic disorders (12 sources)Weight lossOnset: 807578-42-5826AtsezregKrelg screening for suspected conditions (not mental disorders or infectious disease) (20 sources)Increased prolactin level; Translations: [Other specified abnormal findings of blood chemistry]Onset: 202161-78-9362TrdocyjcOzdfjpxt codes; unclassified (2 sources)16 weeks gestation of ; Translations: [16 weeks gestation of ]Onset: 59-38-0247MrhhduznTwwiemwll-related disorders (20 sources)Marijuana user; Translations: [Drug use complicating , unspecified trimester]Onset: 877618-08-8970OgbctlosJskhufjdoyfo (2 sources)Patient encounter kbmsol30-00-1364Lsrpabgdzwpy (1 source)Nausea and vomiting during -71-5472 Results Test NameValueInterpretationReference RangeFacilityInpatient Clinical Summaryon 31-95-3143Fnudvuwqf Clinical SummaryInpatient Clinical Summary [place] [id number] Clinical Summary Person Information Name: INDU JORGENSEN [facility] Age: 29 Years : 1995 Sex: Female PCP: Yasmin WELCH DO Marital Status: Phone: [phone] Race: White Ethnicity: Non- or Language: Algerian Visit Id: Visit Reason: Speciality: Acuity: Enc Type: Outpatient Med Service: Obstetrics Arrival: 01/12/2025 07:29:12 Discharge: 01/12/2025 08:11:41 Dispo Type: Home (Routine DC) Address: [facility] [id number] Provider Notes: Diagnosis: Problems Active Smoker (07/03/2024) [...] By Mouth every day. multivitamin, ( 19 ([place])) Oral. pantoprazole (Pantoprazole [address] Tab) 1 Tablets By Mouth. quetiapine (SEROquel 50 mg ER Tab) 2 Tablets By Mouth at bedtime. Care Team Members: Attending Physician: Uriel MEADE DO Consulting Physician: Referring Physician: Follow up: Type Location Start [facility] [place] FT.ULTRASOUND 01/15/2025 10:00 AM 01/15/2025 11:00 AM Confirmed Patient Education Information:[facility] Summaryon 48-20-4221Embscbiyn Patient SummaryInpatient Patient Summary [place] [address] Patient Discharge Instructions PERSON INFORMATION Name: INDU JORGENSEN Date of : 1995 Current Date: 01/12/2025 08:11:59 PHYSICIANS Admitting Physician: Uriel MEADE DO Primary Care Physician: Yasmin WELCH DO PCP Phone Number: [phone] Comment: Discharge Diagnosis: Condition at Discharge: Stable [...] a nearby participating provider. Type Location Start [facility] [place] FT.ULTRASOUND 01/15/2025 10:00 AM 01/15/2025 11:00 AM Confirmed Comment: JAMEEL Nichole, INDU ALDRIDGE, have received the attached patient education materials/instructions and have verbalized understanding. Patient Signature Date Clinican/Nurse Signature Date MEDICATION LIST Medications to Continue with No Changes Other Medications carbonyl iron (Iron Chews) 15 Milligram By Mouth every day. Last Dose: Next Dose: multivitamin, ( 19 ([place])) Oral. Last Dose: Next Dose: pantoprazole (Pantoprazole [...] yet, please contact Health Information Management at [phone] to get signed up today. NATALIE Award [...] available as needed. Thank you for choosing [facility] Clinical Summaryon 03-01-5264Pyhnsqrio Clinical Summary Inpatient Clinical Summary [address] [address] Clinical Summary Person Information Name: INDU JORGENSEN [place]/[facility] Age: 29 Years : 1995 Sex: Female PCP: Yasmin WELCH DO Marital Status: Phone: [phone] Race: White Ethnicity: Non- or Language: Algerian Visit Id: Visit Reason: NST Speciality: Acuity: Enc Type: Outpatient Med Service: Obstetrics Arrival: 01/08/2025 08:35:14 Discharge: 01/08/2025 09:25:00 Dispo Type: Home (Routine DC) Address: [address] [place] [phone] Provider Notes: Diagnosis: Problems Active Smoker (07/03/2024) [...] By Mouth every day. multivitamin, ( 19 ([place])) Oral. pantoprazole (Pantoprazole [address] Tab) 1 Tablets By Mouth. quetiapine (SEROquel 50 mg ER Tab) 2 Tablets By Mouth at bedtime. Care Team Members: Attending Physician: Uriel MEADE DO Consulting Physician: Referring Physician: Follow up: Type Location Start [facility] [place] FT.ULTRASOUND 01/15/2025 10:00 AM 01/15/2025 11:00 AM Confirmed Patient Education Information:[facility] Patient Summaryon 96-58-8550Xebuhyfwb Patient SummaryInpatient Patient Summary [place] [id number] Patient Discharge Instructions PERSON INFORMATION Name: INDU JORGENSEN Date of : 1995 Current Date: 01/08/2025 09:40:30 PHYSICIANS Admitting Physician: Uriel MEADE DO Primary Care Physician: Yasmin WELCH DO PCP Phone Number: [phone] Comment: Discharge Diagnosis: Condition at Discharge: Stable [...] Last Dose: Next Dose: multivitamin, ( 19 ([place])) Oral. Last Dose: Next Dose: pantoprazole (Pantoprazole [address] Tab) 1 Tablets By Mouth. Last Dose: Next Dose: quetiapine (SEROquel 50 mg ER Tab) 2 Tablets By Mouth at bedtime. Last Dose: Next Dose: PATIENT EDUCATION INFORMATION Instructions: Medication Leaflets: You may receive a survey from [employer] asking you to rate your care experience. [...] signed up for this yet, please contact [employer] at [phone] to get signed up today. NATALIE Award [...] available as needed. Thank you for choosing [facility] w/ Non-Stron [id number] Biophysical Profile w/ Non-StrExam Date/Time: 01/08/2025 08:47 [...] Arun Bhatia MD Transcribed by: JURGEN Technologist: [facility] Clinical Summaryon 77-15-6086Vucoilufd Clinical SummaryInpatient Clinical Summary [address] [address] Clinical Summary Person Information Name: INDU JORGENSEN [place]/[facility] Age: 29 Years : 1995 Sex: Female PCP: Yasmin WELCH DO Marital Status: Phone: [phone] Race: White Ethnicity: Non- or Language: Algerian Visit Id: Visit Reason: NST Speciality: Acuity: Enc Type: Outpatient Med Service: Obstetrics Arrival: 01/05/2025 07:29:29 Discharge: 01/05/2025 08:15:47 Dispo Type: Home (Routine DC) Address: [address] [place] [phone] Provider Notes: Diagnosis: Problems Active Smoker (07/03/2024) [...] By Mouth every day. multivitamin, ( 19 ([place])) Oral. pantoprazole (Pantoprazole [address] Tab) [...] AM 01/15/2025 11:00 AM Confirmed Patient Education Information:[facility] Patient Summaryon 08-00-2710Zyqgohjym Patient SummaryInpatient Patient Summary [address] [address] Patient Discharge Instructions PERSON INFORMATION Name: INDU JORGENSEN Date of : 1995 Current Date: 01/05/2025 08:31:07 PHYSICIANS Admitting Physician: Uriel MEADE DO Primary Care Physician: Yasmin WELCH DO PCP Phone Number: [phone] Comment: Discharge Diagnosis: Condition at Discharge: Stable [...] Last Dose: Next Dose: multivitamin, ( 19 ([place])) Oral. Last Dose: Next Dose: pantoprazole (Pantoprazole [address] Tab) 1 Tablets By Mouth. Last Dose: Next Dose: quetiapine (SEROquel 50 mg ER Tab) 2 Tablets By Mouth at bedtime. Last Dose: Next Dose: PATIENT EDUCATION INFORMATION Instructions: Medication Leaflets: You may receive a survey from [employer] asking you to rate your care experience. [...] signed up for this yet, please contact [employer] at [phone] to get signed up today. NATALIE Award [...] available as needed. Thank you for choosing [facility]In[facility] Clinical Summaryon 27-61-2711Cbahajygc Clinical Summary Inpatient Clinical Summary [place] [id number] Clinical Summary Person Information Name: INDU JORGENSEN [place]/[facility] Age: 29 Years : 1995 Sex: Female PCP: Yasmin WELCH DO Marital Status: Phone: [phone] Race: White Ethnicity: Non- or Language: Algerian Visit Id: Visit Reason: nst Speciality: Acuity: Enc Type: Outpatient Med Service: Obstetrics Arrival: 01/01/2025 10:33:00 Discharge: 01/01/2025 11:03:00 Dispo Type: Home (Routine DC) Address: [address] [place] [phone] Provider Notes: Diagnosis: Problems Active Smoker (07/03/2024) [...] By Mouth every day. multivitamin, ( 19 ([place])) Oral. pantoprazole (Pantoprazole [address] Tab) [...] AM 01/15/2025 11:00 AM Confirmed Patient Education Information:[facility] Patient Summaryon 55-17-2195Vleufnotg Patient SummaryInpatient Patient Summary [place] [address] Patient Discharge Instructions PERSON INFORMATION Name: INDU JORGENSEN Date of : 1995 Current Date: 01/01/2025 11:26:10 PHYSICIANS Admitting Physician: Uriel MEADE DO Primary Care Physician: Yasmin WELCH DO PCP Phone Number: [phone] Comment: Discharge Diagnosis: Condition at Discharge: Stable [...] nearby participating provider. Type Location Start Finish [facility] [place] FT.ULTRASOUND 01/08/2025 10:00 AM 01/08/2025 [...] Last Dose: Next Dose: multivitamin, ( 19 ([place])) Oral. Last Dose: Next Dose: pantoprazole (Pantoprazole [...] signed up for this yet, please contact [employer] at [phone] to get signed up today. NATALIE Award [...] available as needed. Thank you for choosing [facility] NormalDunlap Memorial HospitalUS Biophysical Profile w/ Non-Stron [id number] Biophysical Profile w/ Non-StrExam Date/Time: 01/01/2025 10:39 [...] Arun Bhatia MD Transcribed by: JURGEN Technologist: [facility] OB FOLLOW UP TRANSABDOMINAL APPROACHon [id number] OB FOLLOW UP TRANSABDOMINAL APPROACH FINDINGS: A [...] Delivery: 02/12/25 Gestational Age as of 12/16/2024: [id number] macro (dipstick) panel (U)on 14-91-1309Lfujknzrc, UANegativeNegative - 4(70) +++ mg/dLNOMS HealthcareBlood, UANegativeNegative [...] 12 mg/dLNOMS HealthcareNOMS Healthcare Inpatient Clinical Summaryon [id number] Clinical SummaryInpatient Clinical Summary [place] [id number] Clinical Summary Person Information Name: INDU JORGENSEN [place]/[facility] Age: 29 Years : 1995 Sex: Female PCP: Yasmin WELCH DO Marital Status: Phone: [phone] Race: White Ethnicity: Non- or Language: Algerian Visit Id: Visit Reason: NST Speciality: Acuity: Enc Type: Outpatient Med Service: Obstetrics Arrival: 12/29/2024 07:35:37 Discharge: 12/29/2024 08:15:00 Dispo Type: Home (Routine DC) Address: [address] [place] [address] [phone] Provider Notes: Diagnosis: Problems Active Smoker (07/03/2024) [...] By Mouth every day. multivitamin, ( 19 ([place])) Oral. pantoprazole (Pantoprazole [address] Tab) [...] AM 01/15/2025 11:00 AM Confirmed Patient Education Information:[facility] HospitalIn[facility] Patient Summaryon 99-80-9518Klzvufqyt Patient SummaryInpatient Patient Summary [place] [id number] Patient Discharge Instructions PERSON INFORMATION Name: INDU JORGENSEN Date of : 1995 Current Date: 12/29/2024 09:06:08 PHYSICIANS Admitting Physician: Primary Care Physician: Yasmin WELCH DO PCP Phone Number: [phone] Comment: Discharge Diagnosis: Condition at Discharge: Stable [...] Last Dose: Next Dose: multivitamin, ( 19 ([place])) Oral. Last Dose: Next Dose: pantoprazole (Pantoprazole [...] signed up for this yet, please contact [employer] at [phone] to get signed up today. NATALIE Award [...] available as needed. Thank you for choosing [facility] HospitalIn[facility] Clinical Summaryon 05-86-3059Rlitujgqd Clinical Summary Inpatient Clinical Summary [address] [address] Clinical Summary Person Information Name: INDU JORGENSEN [place]/[facility] Age: 29 Years : 1995 Sex: Female PCP: Yasmin WELCH DO Marital Status: Phone: [phone] Race: White Ethnicity: Non- or Language: Algerian Visit Id: Visit Reason: nst Speciality: Acuity: Enc Type: Outpatient Med Service: Obstetrics Arrival: 12/25/2024 10:29:02 Discharge: 12/25/2024 11:10:00 Dispo Type: Home (Routine DC) Address: [address] [place] [address] [phone] Provider Notes: Diagnosis: Problems Active Smoker (07/03/2024) [...] By Mouth every day. multivitamin, ( 19 ([place])) Oral. pantoprazole (Pantoprazole [address] Tab) 1 Tablets By Mouth. quetiapine (SEROquel 50 mg ER Tab) 2 Tablets By Mouth at bedtime. Care Team Members: Attending Physician: Uriel MEADE DO Consulting Physician: Referring Physician: Follow up: Type Location Start Finish [facility] US (FT) FT.ULTRASOUND 01/01/2025 10:00 AM 01/01/2025 11:00 AM Confirmed US (FT) FT.ULTRASOUND 01/08/2025 10:00 AM 01/08/2025 11:00 AM Confirmed [place] ([place]) FT.ULTRASOUND 01/15/2025 10:00 AM 01/15/2025 11:00 AM Confirmed Patient Education Information:[facility] HospitalIn[facility] Patient Summaryon 66-50-9959Udtvatydg Patient SummaryInpatient Patient Summary [place] [id number] Patient Discharge Instructions PERSON INFORMATION Name: INDU JORGENSEN Date of : 1995 Current Date: 12/25/2024 11:39:29 PHYSICIANS Admitting Physician: Uriel MEADE DO Primary Care Physician: Yasmin WELCH DO PCP Phone Number: [phone] Comment: Discharge Diagnosis: Condition at Discharge: INDU [...] a nearby participating provider. Type Location Start [facility] US (FT) FT.ULTRASOUND 01/01/2025 10:00 AM [...] Last Dose: Next Dose: multivitamin, ( 19 ([place])) Oral. Last Dose: Next Dose: pantoprazole (Pantoprazole [...] signed up for this yet, please contact [employer] at [phone] to get signed up today. NATALIE Award [...] available as needed. Thank you for choosing [facility] NormalDunlap Memorial HospitalUS Biophysical Profile w/o N-Stron [id number] Biophysical Profile w/o N-StrExam Date/Time: 12/25/2024 10:33 [...] Arun Bhatia MD Transcribed by: JURGEN Technologist: [facility] HospitalInpatient Clinical Summaryon 91-45-5248Fucuxxlgp Clinical SummaryInpatient Clinical Summary [place] [id number] Clinical Summary Person Information Name: INDU JORGENSEN [facility] Age: 29 Years : 1995 Sex: Female PCP: Yasmin WELCH DO Marital Status: Phone: [phone] Race: White Ethnicity: Non- or Language: Algerian Visit Id: Visit Reason: NST Speciality: Acuity: Enc Type: Outpatient Med Service: Obstetrics Arrival: 12/22/2024 07:38:18 Discharge: 12/22/2024 08:55:00 Dispo Type: Home (Routine DC) Address: [address] [place] [address] [phone] Provider Notes: Diagnosis: Problems Active Smoker (07/03/2024) [...] By Mouth every day. multivitamin, ( 19 ([place])) Oral. pantoprazole (Pantoprazole [address] Tab) [...] AM 01/15/2025 11:00 AM Confirmed Patient Education Information:[facility] HospitalIn[facility] Patient Summaryon 07-28-4246Cjsvcspwr Patient SummaryInpatient Patient Summary [address] [address] Patient Discharge Instructions PERSON INFORMATION Name: INDU JORGENSEN Date of : 1995 Current Date: 12/22/2024 09:03:01 PHYSICIANS Admitting Physician: Uriel MEADE DO Primary Care Physician: Yasmin WELCH DO PCP Phone Number: [phone] Comment: Discharge Diagnosis: Condition at Discharge: INDU [...] Last Dose: Next Dose: multivitamin, ( 19 ([place])) Oral. Last Dose: Next Dose: pantoprazole (Pantoprazole [...] signed up for this yet, please contact [employer] at [phone] to get signed up today. NATALIE Award [...] available as needed. Thank you for choosing [facility] NormalDunlap Memorial HospitalUS Biophysical Profile w/o N-Stron [id number] Biophysical Profile w/o N-StrExam Date/Time: 12/18/2024 10:41 [...] Jade Payton DO Transcribed by: JURGEN Technologist: RamónSum[facility] w/ Auto Diffon 73-91-8703Adedvawk Absolute0.1 E9/LNormal0.0-0.2FCorey HospitalComment on above:Performed By: #### [id number] #### [facility] [address] [place], [place] [address]Ptxruwwsb/100 WBC (Bld)0.5 %Normal0.0-2.0Dunlap Memorial HospitalComment on above:Performed By: #### [id number] #### [facility] [address] [place], [place] [address]Yrr Absolute0.1 E9/LNormal0.0-0.5FCorey Hospital Comment on above:Performed By: #### [id number] #### [facility] [address] [place], [place] [address]Zthjoqghofu/100 WBC (Bld)0.5 %Normal0.0-8.0Dunlap Memorial HospitalComment on above:Performed By: #### [id number] #### [facility] [address] [place] [address]Eyizzguolws distribution width (RBC) [Ratio]15.5 %High10.9-14.2 [facility] Memorial HospitalComment on above:Performed By: #### [id number] #### [facility] [address] [place] [address]Iohbfdvmhw (Bld) [Volume fraction]32.6 %Low34.0-46.0Dunlap Memorial HospitalComment on above:Performed By: #### [id number] #### [facility] [address] [place] [address] 49[address]Ugpjfbbhjf (Bld) [Mass/Vol]11.2 g/dLLow12.0-16.0Dun[facility] Memorial HospitalComment on above:Performed By: #### [id number] #### [facility] [address] [place] [address]Gwxcx Absolute1.9 E9/LNormal1.0-4.0[facility] Comment on above:Performed By: #### [id number] #### [facility] [address] [place] [address]Jfeubesdzgv/100 WBC (Bld)15.6 %Bafirv90.0-50.0Dun[facility] Memorial HospitalComment on above:Performed By: #### [id number] #### [facility] [address] [place], [place] [address]ALO (RBC) [Entitic mass]31.0 bfOxclso94.0-34.0Dun[facility] Memorial HospitalComment on above:Performed By: #### [id number] #### [facility] [address] [place] [address]ROGT (RBC) [Mass/Vol]34.4 g/sTCzfcgp86.4-36.0Dun[facility] Memorial HospitalComment on above:Performed By: #### [id number] #### [facility] [address] [place] [address]KXF (RBC) [Entitic vol]90.2 zVDigqqk38.0-100.0Dunlap Memorial HospitalComment on above:Performed By: #### [id number] #### [facility] [address] [place], [place] [address]Tbwa Absolute0.5 E9/LNormal0.2-1.0[facility] Comment on above:Performed By: #### [id number] #### [facility] [address] [place] [address]Emijemuwe/100 WBC (Bld)4.4 %Normal4.0-14.0Dun[facility] Memorial HospitalComment on above:Performed By: #### [id number] #### [facility] [address] [place], [place] [address]Haxjts Absolute9.4 E9/LHigh2.0-7.5FCorey Hospital Comment on above:Performed By: #### [id number] #### [facility] [address] [place] [address]Jnadcr Auto79.0 %High36.0-75.0[facility] Comment on above:Performed By: #### [id number] #### [facility] [address] [place], [place] [address]Nirfrkyb424.0 E9/GCpfjad317.0-500.0[facility] Comment on above:Performed By: #### [id number] #### [facility] [address] [place], [place] [address]Ehfeevuo mean volume (Bld) [Entitic vol]7.2 fLNormal6.4-10.8 [facility] HospitalComment on above:Performed By: #### [id number] #### [facility] [address] [place] [address] [place] [address]MVU2.6 E12/LLow4.3-5.9[facility] Memorial HospitalComment on above:Performed By: #### [id number] #### [facility] [address] [place] [address]AIV98.9 E9/LHigh4.0-11.0[facility] Memorial HospitalComment on above:Performed By: #### [id number] #### [facility] [address] [place] [address]Nikchlqak Clinical Summaryon 27-79-9127Srtmlymck Clinical SummaryInpatient Clinical Summary [address] [address] Clinical Summary Person Information Name: INDU JORGENSEN [place]/[facility] Age: 29 Years : 1995 Sex: Female PCP: Yasmin WELCH DO Marital Status: Phone: [phone] Race: White Ethnicity: Non- or Language: Algerian Visit Id: Visit Reason: NST Speciality: Acuity: Enc Type: Outpatient Med Service: Obstetrics Arrival: 12/18/2024 10:34:07 Discharge: 12/18/2024 11:47:23 Dispo Type: Home (Routine DC) Address: [address] [place] [address] [phone] Provider Notes: Diagnosis: Problems Active Smoker (07/03/2024) [...] By Mouth every day. multivitamin, ( 19 ([place])) Oral. pantoprazole (Pantoprazole [address] Tab) [...] AM 01/15/2025 11:00 AM Confirmed Patient Education Information:[facility] HospitalInpatient Patient Summaryon 84-63-2196Mezgskbnq Patient SummaryInpatient Patient Summary [place] [id number] Patient Discharge Instructions PERSON INFORMATION Name: JAMEEL INDUSARAH ALDRIDGE Date of : 1995 Current Date: 12/18/2024 11:47:34 PHYSICIANS Admitting Physician: Uriel MEADE DO Primary Care Physician: Yasmin WELCH DO PCP Phone Number: [phone] Comment: Discharge Diagnosis: Condition at Discharge: INDU [...] Last Dose: Next Dose: multivitamin, ( 19 ([place])) Oral. Last Dose: Next Dose: pantoprazole (Pantoprazole [address] Tab) 1 Tablets By Mouth. Last Dose: Next Dose: quetiapine (SEROquel 50 mg ER Tab) 2 Tablets By Mouth at bedtime. Last Dose: Next Dose: PATIENT EDUCATION INFORMATION Instructions: Medication Leaflets: You may receive a survey from [employer] asking you to rate your care experience. [...] signed up for this yet, please contact [employer] at [phone] to get signed up today. NATALIE Award [...] available as needed. Thank you for choosing [facility] NormalDunlap Memorial HospitalUrinalysis macro (dipstick) panel (U)on 17-87-4467Wtgpoqeen, UA NegativeNegative - 4(70) +++ mg/dLNOMS HealthcareBlood, [...] - 12 mg/dLNOMS HealthcareNOMS HealthcareInpatient Clinical Summaryon 84-97-9757Llxvmijmq Clinical SummaryInpatient Clinical Summary [address] [address] Clinical Summary Person Information Name: INDU JORGENSEN [place]/[facility] Age: 29 Years : 1995 Sex: Female PCP: Yasmin WELCH DO Marital Status: Phone: [phone] Race: White Ethnicity: Non- or Language: Algerian Visit Id: Visit Reason: NST Speciality: Acuity: Enc Type: Outpatient Med Service: Obstetrics Arrival: 12/15/2024 07:30:22 Discharge: 12/15/2024 08:30:00 Dispo Type: Home (Routine DC) Address: [address] [place] [address] [phone] Provider Notes: Diagnosis: Problems Active Smoker (07/03/2024) [...] #24 (twenty-four). Refills: 0. multivitamin, ( 19 ([place])) Oral. naloxone (naloxone 4 mg/0.1 mL nasal [...] AM 01/15/2025 11:00 AM Confirmed Patient Education Information:[facility] HospitalInpatient Patient Summaryon 22-31-5141Dvtbkywdn Patient SummaryInpatient Patient Summary [place] [id number] Patient Discharge Instructions PERSON INFORMATION Name: INDU JORGENSEN Date of : 1995 Current Date: 12/15/2024 08:36:10 PHYSICIANS Admitting Physician: Uriel MEADE DO Primary Care Physician: Yasmin WELCH DO PCP Phone Number: [phone] Comment: Discharge Diagnosis: Condition at Discharge: INDU [...] Last Dose: Next Dose: multivitamin, ( 19 ([place])) Oral. Last Dose: Next Dose: naloxone (naloxone [...] signed up for this yet, please contact [employer] at [phone] to get signed up today. NATALIE Award Nomination The NATALIE (Diseases A (more content not included)...[facility] HospitalInpatient Clinical Summaryon 86-73-3154Lnxbxuace Clinical SummaryInpatient Clinical Summary [place] [address] Clinical Summary Person Information Name: INDU JORGENSEN [place]/[facility] Age: 29 Years : 1995 Sex: Female PCP: Yasmin WELCH DO Marital Status: Phone: [phone] Race: White Ethnicity: Non- or Language: Algerian Visit Id: Visit Reason: nst Speciality: Acuity: Enc Type: Outpatient Med Service: Obstetrics Arrival: 12/11/2024 10:37:22 Discharge: 12/11/2024 11:10:00 Dispo Type: Home (Routine DC) Address: [address] [place] [address] [phone] Provider Notes: Diagnosis: Problems Active Smoker (07/03/2024) [...] #24 (twenty-four). Refills: 0. multivitamin, ( 19 ([place])) Oral. naloxone (naloxone 4 mg/0.1 mL nasal [...] AM 01/15/2025 11:00 AM Confirmed Patient Education Information:[facility] HospitalInpatient Patient Summaryon 64-54-5532Wlapwahpp Patient SummaryInpatient Patient Summary [place] [id number] Patient Discharge Instructions PERSON INFORMATION Name: INDU JORGENSEN Date of : 1995 Current Date: 12/11/2024 11:16:48 PHYSICIANS Admitting Physician: Uriel MEADE DO Primary Care Physician: Yasmin WELCH DO PCP Phone Number: [phone] Comment: Discharge Diagnosis: Condition at Discharge: INDU [...] Last Dose: Next Dose: multivitamin, ( 19 ([place])) Oral. Last Dose: Next Dose: naloxone (naloxone [...] You may receive a survey from [employer] asking you to rate your care experience. [...] signed up for this yet, please contact [employer] at [phone] to get signed up today. NATALIE Award Nomination The NATALIE (Diseases At (more content not included)...[facility] HospitalUS Biophysical Profile w/ Non-Stron [id number] Biophysical Profile w/ Non-StrExam Date/Time: 12/11/2024 10:55 [...] Willi Barros MD Transcribed by: JURGEN Technologist: SeraDunlap Memorial HospitalInpatient Clinical Summaryon 20-78-7575Dkshykcuv Clinical SummaryInpatient Clinical Summary [place] [id number] Clinical Summary Person Information Name: INDU JORGENSEN [place]/[facility] Age: 29 Years : 1995 Sex: Female PCP: Yasmin WELCH DO Marital Status: Phone: [phone] Race: White Ethnicity: Non- or Language: Algerian Visit Id: Visit Reason: NST Speciality: Acuity: Enc Type: Outpatient Med Service: Obstetrics Arrival: 12/08/2024 07:19:54 Discharge: 12/08/2024 08:07:00 Dispo Type: Home (Routine DC) Address: [facility] [phone] Provider Notes: Diagnosis: Problems Active Smoker (07/03/2024) [...] #24 (twenty-four). Refills: 0. multivitamin, ( 19 ([place])) Oral. naloxone (naloxone 4 mg/0.1 mL nasal [...] Referring Physician: Follow up: With: Address: When: [facility], [address] [place] [address] , [place] [address] [facility] (1) In 8 days 12/16/2024 Comments: Call [...] AM 01/15/2025 11:00 AM Confirmed Patient Education Information:[facility] HospitalInpatient Patient Summaryon 15-59-7566Rhvcakepn Patient SummaryInpatient Patient Summary [address] [address] Patient Discharge Instructions PERSON INFORMATION Name: INDU JORGENSEN Date of : 1995 Current Date: 12/08/2024 08:24:56 PHYSICIANS Admitting Physician: Saundra Verdugo MD Primary Care Physician: Yasmin WELCH DO PCP Phone Number: [phone] Comment: Discharge Diagnosis: Condition at Discharge: INDU [...] Follow up: With: Address: When: Uriel MEADE [facility], [address] [place] [address] [place] [address] [employer] In 8 days 12/16/2024 Comments: Call for [...] Last Dose: Next Dose: multivitamin, ( 19 ([place])) Oral. Last Dose: Next Dose: naloxone (naloxone [...] You may receive a survey from [employer] asking you to rate your care experience. Your feedback is important and will help us understand what we do well and how we can improve the quality of care we provide to you, your loved ones and our community. It???s an honor to serve you. Patient Portal You may access all of your results a (more content not included)...[facility] HospitalInpatient Clinical Summaryon 01-00-5419Hbbvmiybd Clinical SummaryInpatient Clinical Summary [place] [id number] Clinical Summary Person Information Name: INDU JORGENSEN [place]/[facility] Age: 29 Years : 1995 Sex: Female PCP: Yasmin WELCH DO Marital Status: Phone: [phone] Race: White Ethnicity: Non- or Language: Algerian Visit Id: Visit Reason: NST Speciality: Acuity: Enc Type: Outpatient Med Service: Obstetrics Arrival: 12/04/2024 13:31:56 Discharge: 12/04/2024 14:20:00 Dispo Type: Home (Routine DC) Address: [address] [place] [address] [phone] Provider Notes: Diagnosis: Problems Active Smoker (07/03/2024) [...] #24 (twenty-four). Refills: 0. multivitamin, ( 19 ([place])) Oral. naloxone (naloxone 4 mg/0.1 mL nasal [...] AM 01/15/2025 11:00 AM Confirmed Patient Education Information:[facility] HospitalInpatient Patient Summaryon 90-09-5753Gsbarbixr Patient SummaryInpatient Patient Summary [place] [address] Patient Discharge Instructions PERSON INFORMATION Name: INDU JORGENSEN Date of : 1995 Current Date: 12/04/2024 14:46:17 PHYSICIANS Admitting Physician: Saundra Verdugo MD Primary Care Physician: Yasmin WELCH DO PCP Phone Number: [phone] Comment: Discharge Diagnosis: Condition at Discharge: Stable [...] Last Dose: Next Dose: multivitamin, ( 19 ([place])) Oral. Last Dose: Next Dose: naloxone (naloxone [...] Leaflets: You may receive a survey from [employer] asking you to rate your care experience. [...] signed up for this yet, please contact [employer] at [phone] to get signed up today. NATALIE Award Nomination The NATALIE (Diseases Attacking the Immune SYstem) Award (more content not included)...[facility] HospitalUS Biophysical Profile w/ Non-Stron [id number] Biophysical Profile w/ Non-StrExam Date/Time: 12/04/2024 13:34 [...] Arun Bhatia MD Transcribed by: JURGEN Technologist: [facility] Medical CenterUrinalysis macro (dipstick) panel (U)on [id number], UANegativeNegative - 4(70) +++ mg/dLNOMS HealthcareBlood, UANegativeNegative [...] - 12 mg/dLNOMS HealthcareNOMS HealthcareInpatient Clinical Summaryon 75-56-8872Sgufdlweo Clinical SummaryInpatient Clinical Summary [address] [address] Clinical Summary Person Information Name: INDU JORGENSEN [place]/[facility] Age: 29 Years : 1995 Sex: Female PCP: Yasmin WELCH DO Marital Status: Phone: [phone] Race: White Ethnicity: Non- or Language: Algerian Visit Id: Visit Reason: NST Speciality: Acuity: Enc Type: Outpatient Med Service: Obstetrics Arrival: 12/01/2024 07:29:12 Discharge: 12/01/2024 08:18:00 Dispo Type: Home (Routine DC) Address: [address] [place] [address] [phone] Provider Notes: Diagnosis: Problems Active Smoker (07/03/2024) [...] #24 (twenty-four). Refills: 0. multivitamin, ( 19 ([place])) Oral. naloxone (naloxone 4 mg/0.1 mL nasal [...] AM 01/15/2025 11:00 AM Confirmed Patient Education Information:[facility] HospitalIn[facility] Patient Summaryon 27-42-2406Ulxrdjeet Patient SummaryInpatient Patient Summary [place] [address] Patient Discharge Instructions PERSON INFORMATION Name: INDU JORGENSEN Date of : 1995 Current Date: 12/01/2024 09:33:41 PHYSICIANS Admitting Physician: Uriel MEADE DO Primary Care Physician: Yasmin WELCH DO PCP Phone Number: [phone] Comment: Discharge Diagnosis: Condition at Discharge: INDU [...] Last Dose: Next Dose: multivitamin, ( 19 ([place])) Oral. Last Dose: Next Dose: naloxone (naloxone [...] signed up for this yet, please contact [employer] at [phone] to get signed up today. NATALIE Award No (more content not included)...[facility] Inpatient Clinical Summaryon 53-85-3463Pjsoouedp Clinical SummaryInpatient Clinical Summary [address] [address] Clinical Summary Person Information Name: INDU JORGENSEN [place] Age: 29 Years : 1995 Sex: Female PCP: Yasmin WELCH DO Marital Status: Phone: [phone] Race: White Ethnicity: Non- or Language: Algerian Visit Id: Visit Reason: O09.81 Speciality: Acuity: Enc Type: Recurring Med Service: Radiology Arrival: 11/27/2024 10:41:00 Discharge: 11/27/2024 11:10:00 Dispo Type: Home (Routine DC) Address: [address] [place] [address] [phone] Provider Notes: Diagnosis: Problems Active Smoker (07/03/2024) [...] #24 (twenty-four). Refills: 0. multivitamin, ( 19 ([place])) Oral. naloxone (naloxone 4 mg/0.1 mL nasal [...] AM 01/15/2025 11:00 AM Confirmed Patient Education Information:[facility] HospitalIn[facility] Patient Summaryon 65-98-9327Uwmjjibgg Patient SummaryInpatient Patient Summary [place] [id number] Patient Discharge Instructions PERSON INFORMATION Name: INDU JORGENSEN Date of : 1995 Current Date: 11/28/2024 08:08:00 PHYSICIANS Admitting Physician: Uriel MEADE DO Primary Care Physician: Yasmin WELCH DO PCP Phone Number: [phone] Comment: Discharge Diagnosis: Condition at Discharge: Stable [...] Last Dose: Next Dose: multivitamin, ( 19 ([place])) Oral. Last Dose: Next Dose: naloxone (naloxone [...] signed up for this yet, please contact [employer] at [phone] to get signed up today. DA (more content not included)...[facility] HospitalUS Biophysical Profile w/o N-Stron [id number] Biophysical Profile w/o N-Str Exam Date/Time: 11/27/2024 [...] Arun Bhatia MD Transcribed by: JURGEN Technologist: OwenDunlap Memorial HospitalCapillary Glucose POCon 24-67-0367Qvhwhhf [Mass/Vol]84 mg/cVEieejp11-75KjjjloDunlap Memorial HospitalComment on above:Result Comment: Cleaned MeterPerformed By: #### [id number] #### [facility] [address] [place], [place] [address]Ewz 1 Hron 82-09-8020Pshbzbh [Mass/Vol]179 mg/bKFlxngb81-857 [facility] Memorial HospitalComment on above:Performed By: #### [id number] #### [facility] [address] [place], [place] [address]Teu 2 Hron 99-51-7686Qwegrho [Mass/Vol]99 mg/lEWfmwct52-715 Dun[facility] Memorial HospitalComment on above:Performed By: #### [id number] #### [facility] [address] [place], [place] [address]Ajf 3 Hron 12-77-7645Wzbxvcj [Mass/Vol]85 mg/uQGifihg54-817 [facility] HospitalComment on above:Performed By: #### [id number] #### [facility] [address] [place], [place] [address]Guo Fastingon 14-57-0962Lyrkimh [Mass/Vol]86 mg/hJNicqus40-46 [facility] HospitalComment on above:Performed By: #### [id number] #### [facility] [address] [place], [place] [address]Lqjoggqce Clinical Summaryon 01-25-0102Ehyoegwkm Clinical SummaryInpatient Clinical Summary [address] [address] Clinical Summary Person Information Name: INDU JORGENSEN Alba/[facility] Age: 29 Years : 1995 Sex: Female PCP: Yasmin WELCH DO Marital Status: Phone: [phone] Race: White Ethnicity: Non- or Language: Algerian Visit Id: Visit Reason: NST Speciality: Acuity: Enc Type: Outpatient Med Service: Obstetrics Arrival: 11/24/2024 07:08:39 Discharge: 11/24/2024 07:46:00 Dispo Type: Home (Routine DC) Address: [address] [place] [phone] Provider Notes: Diagnosis: Problems Active Smoker (07/03/2024) [...] #24 ([age]). Refills: 0. multivitamin, ( 19 ([place])) Oral. naloxone (naloxone 4 mg/0.1 mL nasal [...] AM 01/15/2025 11:00 AM Confirmed Patient Education Information:[facility]In[facility] Summaryon 47-94-2238Zakfbtwfp Patient SummaryInpatient Patient Summary [place] [id number] Patient Discharge Instructions PERSON INFORMATION Name: INDU JORGENSEN Date of : 1995 Current Date: 11/24/2024 08:03:32 PHYSICIANS Admitting Physician: Uriel MEADE DO Primary Care Physician: Yasmin WELCH DO PCP Phone Number: [phone] Comment: Discharge Diagnosis: Condition at Discharge: INDU [...] Last Dose: Next Dose: multivitamin, ( 19 ([place])) Oral. Last Dose: Next Dose: naloxone (naloxone [...] not s (more content not included)...Normal [facility] CenterUS Biophysical Profile w/ Non-Stron 11-20-2024 US [...] Bhatia MD Transcribed by: JURGEN Technologist: [facility] CenterUrinalysis macro (dipstick) panel (U)on 64-25-1042Oblcgbtwb, UANegativeNegative - 4(70) +++ mg/dLNOMS HealthcareBlood, UANegativeNegative - 50 Mick/mcLNOMS Healthcare Clarity, UAClearNOMS HealthcareColor, UAYellowNOMS HealthcareGlucose, UANegative Negative - 2000(110) ++++ mg/dLNOMS HealthcareInterpretation and review of laboratory resultsAbnormalNOMS HealthcareKetones, UANegativeNegative - 160(16) ++++ mg/dLNOVT HealthcareLeukocytes, UANegativeNegative - 500+++ Campos/mcLNOMS HealthcareNitrite, UANegativeNegative - PositiveNOMS HealthcarepH, UA6.55 - 9 NOMS HealthcareProtein, UAPositiveNegative - 2000(20) ++++ mg/dLNOMS Healthcare Spec Grav, UA1.0151 - 1.03NOMS HealthcareUrobilinogen, UA1.00.2 - 12 mg/dLNOMS HealthcareNOMS HealthcareCBC w/Indiceson 20-80-6589Mmbnimwofgl distribution width (RBC) [Ratio]15.7 %High10.9-14.2[facility] CenterComment on above:Performed By: #### [id number] #### [facility] [address] [place], [place] [address]Yxbzlhgqta (Bld) [Volume fraction]31.4 %Low34.0-46.0[facility] HospitalComment on above:Performed By: #### [id number] #### [facility] [address] [place], [place] [address]Zdqvngnqyu (Bld) [Mass/Vol]10.8 g/dLLow12.0-16.0[facility] HospitalComment on above:Performed By: #### [id number] #### [facility] [address] [place], [place] [address]CJD (RBC) [Entitic mass]30.0 qhVwwdfy01.0-34.0[facility] HospitalComment on above:Performed By: #### [id number] #### [facility] [address] [place], [place] [address]HQGL (RBC) [Mass/Vol]34.3 g/zIAanovy96.4-36.0[facility] HospitalComment on above:Performed By: #### [id number] #### [facility] [address] [place], [place] [address]QVW (RBC) [Entitic vol]87.6 mQDpexhp25.0-100.0[facility] HospitalComment on above:Performed By: #### [id number] #### [facility] [address] [place], [place] [address]Alfgdkav592.0 E9/GNweskh644.0-500.0[facility] Comment on above:Performed By: #### [id number] #### [facility] [address] [place], [place] [address]Lmdlctmh mean volume (Bld) [Entitic vol]7.2 fLNormal6.4-10.8 [facility] HospitalComment on above:Performed By: #### [id number] #### [facility] [address] [place], [place] [address]HYJ8.6 E12/LLow4.3-5.9[facility] HospitalComment on above:Performed By: #### [id number] #### [facility] [address] [place], [place] [address]WMV morphology finding Nom (Bld)NORMALInvalid Interpretation CodeDunlap Memorial HospitalComment on above:Performed By: #### [id number] #### [facility] [address] [place], [place] [address]MGQ57.8 E9/LNormal4.0-11.0[facility] HospitalComment on above:Performed By: #### [id number] #### [facility] [address] [place], [place] [address]Wnof Scr Glu 1 Hron 90-29-9273Dzipdla [Mass/Vol]166 mg/dLHigh 55-140[facility] HospitalComment on above:Performed By: #### [id number] #### [facility] [address] [place], [place] [address]Voujgryawh macro (dipstick) panel (U)on 42-20-6466Xvdqghiiv, UA NegativeNegative - 4(70) +++ mg/dLNOMS HealthcareBlood, UANegativeNegative - 50 Mick/mcLNOMS HealthcareClarity, UACloudyNOMS HealthcareColor, UAStrawNOMS HealthcareGlucose, UANegativeNegative - 1999(110) ++++ mg/dLNOMS Healthcare Interpretation and review of laboratory resultsAbnormalNOMS HealthcareKetones, UANegativeNegative - 160(16) ++++ mg/dLNOMS HealthcareLeukocytes, UANegative Negative - 500+++ Campos/mcLNOMS HealthcareNitrite, UANegativeNegative - Positive NOMS HealthcarepH, UA8.55 - 9NOMS HealthcareProtein, UAPositiveNegative - 2000(20) ++++ mg/dLNOMS HealthcareSpec Grav, NT81532 - 1.03[facility] Urobilinogen, UA1.00.2 - 12 mg/dLNOMS HealthcareNOMS HealthcareUrinalysis macro (dipstick) panel (U)on 06-53-5722Qllnpyalp, UANegativeNegative - 4(70) +++ mg/dL NOMS HealthcareBlood, [...] - 12 mg/dLNOMS HealthcareNOMS HealthcareCBC (NO DIFF)on 88-56-8270Grmziqkzsai distribution width (RBC) [Ratio] 15.5 %High11.5-15ProHca Houston Healthcare TomballComment on above:Performed By: #### CBC #### [facility] ([facility]) [address] [place] [address] VIRHematocrit (Bld) [Volume fraction]36.9 %Oggrsm86-20SqoGbtlxdMiddletown HospitalComment on above:Performed By: #### CBC #### [facility] ([facility]) [address] [place] [address] VIRHemoglobin (Bld) [Mass/Vol]12.2 g/sILkbaut13.7-15.5PParkview HealthComment on above:Performed By: #### CBC #### [facility] ([facility]) [address] [place] [address] VIRMCH (RBC) [Entitic mass]29.2 beOltgen90-93TmcBmfpmnMiddletown HospitalComment on above:Performed By: #### CBC #### [facility] ([facility]) [address] [place] [address] VIRMCHC (RBC) [Mass/Vol]33.1 g/fAIzrvyy28-30ZasKvbudlHca Houston Healthcare TomballComment on above:Performed By: #### CBC #### [facility] ([facility]) [address] [place] [address] VIRMCV (RBC) [Entitic vol]88 rLUgxkzz38-915PqqIjzdzzMiddletown HospitalComment on above:Performed By: #### CBC #### [facility] ([facility]) [address] [place] [address] VIRPlatelet mean volume (Bld) [Entitic vol]7.8 fLNormal7-12 [facility] HospitalComment on above:Performed By: #### CBC #### [facility] ([facility]) [address] [place] [address] VIRPlatelets (Bld) [#/Vol]258 10*3/aUSkzulu192-927YauAlgbct [facility]ont HospitalComment on above:Performed By: #### CBC #### [facility] ([facility]) [address] [place] [address] VIRRBC COUNT4.19 X10E12/LNormal3.8-5.2PParkview HealthComment on above:Performed By: #### CBC #### [facility] ([facility]) [address] [place] [address] VIRWBC (Bld) [#/Vol]10.7 10*3/uLNormal4-11M[facility]own HospitalComment on above:Performed By: #### CBC #### [facility] ([facility]) [address] [place] [address] VIRCOMPREHENSIVE METABOLIC PANELon 56-04-0505Xkqkcsi [Mass/Vol] 3.7 g/dLNormal3.2-5.3PParkview HealthComment on above:Performed By: #### CMP #### [facility] ([facility]) [address] [place] [address] VIRALP [Catalytic activity/Vol]42 U/ZJzaiuu54-314HkgFadqrvHca Houston Healthcare TomballComment on above:Performed By: #### CMP #### [facility] ([facility]) [address] [place] [address] VIRALT [Catalytic activity/Vol]10 U/LNormal<=31PParkview HealthComment on above:Performed By: #### CMP #### [facility] ([facility]) [address] [place] [address] VIRAnion gap [Moles/Vol]7 mmol/LNormal5-15ProHca Houston Healthcare TomballComment on above:Performed By: #### CMP #### [facility] ([facility]) [address] [place] [address] VIRAST [Catalytic activity/Vol]13 U/LNormal<=41ProHca Houston Healthcare TomballComment on above:Performed By: #### CMP #### [facility] ([facility]) [address] [place] [address] VIRBilirubin [Mass/Vol]0.3 mg/dLNormal0.3-1.2PParkview HealthComment on above:Performed By: #### CMP #### [facility] ([facility]) [address] [place] [address] VIRCalcium [Mass/Vol]8.9 mg/dLNormal8.5-10.5PParkview HealthComment on above:Performed By: #### CMP #### [facility] ([facility]) [address] [place] [address] VIRChloride [Moles/Vol]104 mmol/HBeurvp72-469SgmMlvxeiHca Houston Healthcare TomballComment on above:Performed By: #### CMP #### [facility] ([facility]) [address] [place] [address] VIRCO2 [Moles/Vol]26 mmol/TVpbegd63-08VaxBigqpdParkview HealthComment on above:Performed By: #### CMP #### [facility] ([facility]) [address] [place] [address] VIRCreatinine [Mass/Vol]0.48 mg/dLNormal0.40-1.00ProHca Houston Healthcare TomballComment on above:Result Comment: METHOD TRACEABLE TO IDMS STANDARDPerformed By: #### CMP #### [facility] ([facility]) [address] [place] [address] VIREGFR (CKD-EPI) NON-RACE DEPENDENT>^90Normal>=60ProHca Houston Healthcare TomballComment on above:Result Comment: Reported eGFR is based on the CKD-EPI 2020 equation that does not use a race coefficient.Performed By: #### CMP #### [facility] ([facility]) [address] [place] [address] VIRGlucose [Mass/Vol]87 mg/hTSybcry77-69ZqwUxlhhvHca Houston Healthcare TomballComment on above:Performed By: #### CMP #### [facility] ([facility]) [address] [place] [address] VIRPotassium [Moles/Vol]4.3 mmol/LNormal3.5-5.0M[facility]own HospitalComment on above:Performed By: #### CMP #### [facility] ([facility]) [address] [place] [address] VIRProtein [Mass/Vol]6.1 g/dLNormal6.0-8.0ProHca Houston Healthcare TomballComment on above:Performed By: #### CMP #### [facility] ([facility]) [address] [place] [address] VIRSodium [Moles/Vol]137 mmol/MBcdnig563-346LkzCdhqrm [facility] HospitalComment on above:Performed By: #### CMP #### [facility] ([facility]) [address] [place] [address] VIRUrea nitrogen [Mass/Vol]7 mg/dLNormal5-23ProHca Houston Healthcare TomballComment on above:Performed By: #### CMP #### [facility] ([facility]) [address] [place] [address] VIRFERRITINon 98-47-6139Hlftiwkf [Mass/Vol]9 ng/gAAnr41-495 [facility] HospitalComment on above:Performed By: #### FERR #### [facility] ([facility]) [address] [place] [address] VIRFOLATEon 55-68-8809HUBUM ACID15.8 ng/mLNormal>5.8ProHca Houston Healthcare TomballComment on above:Performed By: #### FOLI #### [facility] ([facility]) [address] [place] [address] VIRMAGNESIUMon 40-64-4124Fxqdqpvae [Mass/Vol]1.9 mg/dLNormal 1.8-2.6ProHca Houston Healthcare TomballComment on above:Performed By: #### MG #### [facility] ([facility]) [address] [place] [address] VIRUS ABDOMEN COMPLETEon 88-87-2968AN ABDOMEN COMPLETEUS ABDOMEN COMPLETE History: Right upper [...] Aroldo Feliciano MD on 09/04/2024 10:15 AMNormalProMedica Sutter Maternity And Surgery HospitalVITAMIN B12on 22-56-1340Afmcmuqtg (Vitamin B12) [Mass/Vol]309 pg/mL Prqljv994-219HtrKxroas [facility] Surgery HospitalComment on above:Performed By: #### B12 #### [facility] ([facility]) [address] [place] [address] VIRIGP,APTIMA HPV,AGE GDLNon 20-47-3012XHL GDLN ACOG TESTING Note.NOMS HealthcareComment on above:TESTS RESULT FLAG UNITS REF RANGE LAB Clinician Provided Cytology Information Source.............Vagina Other.............. No. of containers..01 ThinPrep Vial Age Algo ACOG Rhonda... FLAG LEGEND: L-Low Normal,H-High Normal,LL-Alert Low,HH-Alert High <-Panic Low,>-Panic High,A-Abnormal,AA-Critical Abnormal Performed at: 01 =[facility] [place] [address] Allyssa Almendarez MD, IGP, RFX APTIMA HPV ASCUNote.NOMS HealthcareComment on above:TESTS RESULT FLAG UNITS REF RANGE LAB DIAGNOSIS: 02 NEGATIVE FOR INTRAEPITHELIAL LESION OR MALIGNANCY. Specimen adequacy: 02 Satisfactory for evaluation. No endocervical component is identified. Performed by: 02 Jose Shaikh, Night Patrol Inspector ([facility]) . 02 Note: Note 03 The Pap [...] <-Panic Low,>-Panic High,A-Abnormal,AA-Critical Abnormal Performed at: [address] [address] [address] [place] [address] wKaku Powell MD, [address] [address] Allyssa Almendarez MD, Performed at: =G - [facility] [address] [id number] Senior Accounting Analyst: Allyssa Almendarez MD, Phone: [phone] Performed at: [facility] - [facility] [address] [address] [place], [place] [id number] Senior Accounting Analyst: Kwaku Powell MD, Phone: [phone] SPATULA-ALONE VAGINA CLINISYNCNOMS HealthcareRECURRENT VAGINITIS (HTRX)on 90-75-1186LHKLZVZAU VAGINAE 29.3AbnormalNOMS HealthcareATOPOBIUM VAGINAEDetectedAbnormalNOMS HealthcareBVAB 2,3 (BACTERIAL VAGINOSIS ASSOCIATED BACTERIA 2, 3); MOBILUNCUS LIC6JXUB HealthcareBVAB 2,3 (BACTERIAL VAGINOSIS ASSOCIATED BACTERIA 2, 3); MOBILUNCUS SPPNot detectedNOMS HealthcareCANDIDA ALBICANS, PARAPSILOSIS, FBAZZLJSMY8NBPM HealthcareCANDIDA ALBICANS, PARAPSILOSIS, TROPICALISNot detectedNOMS Healthcare JABIER WRPZWJTO9QIWS HealthcareCANDIDA GLABRATANot detectedNOMS Healthcare JABIER NVULSM9JKRQ HealthcareCANDIDA KRUSEINot detectedNOMS HealthcareCHLAMYDIA WXKXAMDAVEI0CJTL HealthcareCHLAMYDIA TRACHOMATISNot detectedNOMS Healthcare GARDNERELLA WHVJRWQPO64.051AbnormalNOMS HealthcareGARDNERELLA VAGINALISDetected AbnormalNOMS HealthcareInterpretation and review of laboratory resultsAbnormal NOMS HealthcareMEGASPHAERA (TYPES 1, 2)0NOMS HealthcareMEGASPHAERA (TYPES 1, 2) Not detectedNOMS HealthcareMYCOPLASMA RVWTUXDGUG6BEKA HealthcareMYCOPLASMA GENITALIUMNot detectedNOMS HealthcareNEISSERIA RSZYYYKQMSU9JZFQ Healthcare NEISSERIA GONORRHOEAENot detectedNOMS HealthcareTET B, TET M24.916AbnormalNOMS HealthcareTET B, TET MDetectedAbnormalNOVT HealthcareTRICHOMONAS QXUSFMKLX6YBYW HealthcareTRICHOMONAS VAGINALISNot detectedNOVT HealthcareNOMS Healthcare Urinalysis macro (dipstick) panel (U)on 10-98-1763Xwculzgli, UANegativeNegative - 4(70) +++ mg/dLNOMS HealthcareBlood, UANegativeNegative - 50 Mick/mcLNOMS HealthcareClarity, UAClearNOMS HealthcareColor, UAYellowNOMS HealthcareGlucose, UANegativeNegative - 2000(110) ++++ mg/dLNOVT HealthcareInterpretation and review of laboratory resultsNormalNOVT HealthcareKetones, UANegativeNegative - 160(16) ++++ mg/dLNOVT HealthcareLeukocytes, UANegativeNegative - 500+++ Campos/mcL NOMS HealthcareNitrite, UANegativeNegative - PositiveNOMS HealthcarepH, UA65 - 9 NOMS HealthcareProtein, UANegativeNegative - 2000(20) ++++ mg/dLNOVT Healthcare Spec Grav, UA1.0251 - 1.03NOVT HealthcareUrobilinogen, UA0.20.2 - 12 mg/dLNOMS HealthcareNOVT HealthcareBasic metabolic 2000 panelon 30-80-0315Rwbbc gap [Moles/Vol]13 mmol/L10 - 20 mmol/[facility] HospitalCalcium [Mass/Vol]8.8 mg/dL8.6 - 10.6 mg/dLUnHenry County HospitalChloride [Moles/Vol]101 mmol/L98 - 107 mmol/[facility] HospitalCO2 [Moles/Vol]23 mmol/L21 - 32 mmol/[facility] HospitalCreatinine [Mass/Vol]0.54 mg/dL0.50 - 1.05 mg/dLUnHenry County HospitaleGFR- [facility] HospitalComment on above:Calculations of estimated GFR are performed using the 2020 CKD-EPI Study Refit equation without therace variable for the IDMS-Traceable creatinine methods. https://jasn.asnjournals.org/content/early/ASN.0995705632 Glucose [Mass/Vol]137 mg/iTXwta68 - 99 mg/dLUnHenry County Hospital Interpretation and review of laboratory resultsAbnormalUniSelect Medical Specialty Hospital - Cincinnati NorthPotassium [Moles/Vol]3.6 mmol/L3.5 - 5.3 mmol/[facility] HospitalSodium [Moles/Vol]133 mmol/HTqa971 - 145 mmol/[facility] HospitalUrea nitrogen [Mass/Vol]12 mg/dL6 - 23 mg/dLSumma Health Wadsworth - Rittman Medical CenterAnion gap [Moles/Vol]13 mmol/UOotuty39-66QxswnuyzdvACMC Healthcare SystemComment on above:Performed By: #### 24879-7 #### CARI Mark ([id number]) [facility] ([facility]) [address] [place] [address]Csmcfoi [Mass/Vol]8.8 mg/dLNormal8.6-10.6UnACMC Healthcare SystemComment on above:Performed By: #### 82918-5 #### CARI Mark ([id number]) [facility] ([facility]) [address] [place] [address]Xvmppjek [Moles/Vol]101 mmol/GKgzkum05-405WulbmlaechACMC Healthcare SystemComment on above:Performed By: #### 47691-3 #### CARI Mark ([id number]) [facility] ([facility]) [address] [place] [address]LD4 [Moles/Vol]23 mmol/QUkbzdh86-71AnxchsftquACMC Healthcare SystemComment on above:Performed By: #### 29228-3 #### CARI Mark ([id number]) [facility] ([facility]) [address] [place] [address]Qffrfnsxlx [Mass/Vol]0.54 mg/dLNormal0.50-1.05UnACMC Healthcare SystemComment on above:Performed By: #### 04880-4 #### CARI Mark ([id number]) [facility] ([facility]) [address] [place] [address] 90808AEE/1.73 sq M.predicted MDRD (S/P/Bld) [Vol rate/Area] mL/min/{1.73_m2}Normal>60Prom[facility]ica Memorial HospitalComment on above:Result Comment: Calculations of estimated GFR are performed using the 2020 CKD-EPI Study Refit equation without the race variable for the IDMS-Traceable creatinine methods. https://jasn.asnjournals.org/content/early/ASN.3319002440Zqjqxmlyp By: #### 30605-3 #### CARI Mark ([id number]) [facility] ([facility]) [address] [place] [address]03[address]Jvenhhw [Mass/Vol]137 mg/tCQbuo79-02VolyfjklxkPromedica Memorial HospitalComment on above:Performed By: #### 89800-7 #### CARI Mark ([id number]) [facility] ([facility]) [address] [place] [address]Cjpzhaxzv [Moles/Vol]3.6 mmol/LNormal3.5-5.3Prom[facility] Memorial HospitalComment on above:Performed By: #### 41153-2 #### CARI Mark ([id number]) [facility] ([facility]) [address] [place] [address]682Vgbcds [Moles/Vol]133 mmol/VFec856-588OomfgskkjsACMC Healthcare SystemComment on above:Performed By: #### 28310-8 #### CARI Mark ([id number]) [facility] ([facility]) [address] [place] [address]Vsff nitrogen [Mass/Vol]12 mg/dLNormal6-23Prom[facility] Memorial HospitalComment on above:Performed By: #### 48124-4 #### CARI Mark ([id number]) [facility] ([facility]) [address] [place] [address] 671[address]Jvlc hydroxybutyrate [Mass or moles/Vol]on 17-54-3570Dmdx hydroxybutyrate [Moles/Vol]0.11 mmol/L0.02 - 0.27 mmol/[facility] HospitalThe beta-hydroxybutyrate test performance characteristics have been validated by [facility]. This test has not been approved by the FDA; however such approval is not necessary. [facility] Rittman Medical CenterBeta hydroxybutyrate [Moles/Vol]0.11 mmol/L Normal0.02-0.27UnACMC Healthcare SystemComment on above: Order Comment: The beta-hydroxybutyrate test performance characteristics have been validated by [facility]. This test has not been approved by the FDA; however such approval is not necessary. Performed By: #### 70823-0 #### CARI Mark ([id number]) [facility] ([facility]) [address] [place] [address]Apxm hydroxybutyrate [Moles/Vol]0.43 mmol/LHigh0.02 - 0.27 mmol/[facility] HospitalInterpretation and review of laboratory resultsAbnoUniversity Hospitals Elyria Medical CenterThe beta-hydroxybutyrate test performance characteristics have been validated by [facility]. This test has not been approved by the FDA; however such approval is not necessary.[facility]. trachomatis and N. gonorrhoeae DNA REEMA+probe Nom (Unsp spec)on 08-15-2024. trachomatis rRNA REEMA+probe Ql (Unsp spec)NegativeNegativeUnHenry County HospitalInterpretation and review of laboratory resultsNoUniversity Hospitals Elyria Medical CenterN. gonorrhoeae DNA Probe+sig amp Ql (Unsp spec)Negative NegativeUnHenry County HospitalThe APTIMA Combo 2 assay is FDA- [...] other sites are not validated for this method.[facility] CenterUnMer[facility]. trachomatis rRNA REEMA+probe Ql (Unsp spec)NegativeNormal NegativePromedica Memorial HospitalComment on above:Order Comment: The APTIMA Combo [...] not validated for this method.Performed By: #### [id number] #### CARI Mark ([id number]) [facility] ([facility]) [address] [place], [place] [address]N. gonorrhoeae DNA Probe+sig amp Ql (Unsp spec)NegativeNormal NegativePromedica Memorial HospitalComment on above:Order Comment: The APTIMA Combo [...] not validated for this method.Performed By: #### [id number] #### CARI Mark ([id number]) [facility] ([facility]) [address] [place] [id number] W Auto Differential panel (Bld)on [id number] (Bld) [#/Vol]0.02 10*3/[facility] CenterBasophils/100 WBC (Bld)0.2 %0.0 - 2.0 %[facility]itt[facility] Medical CenterEosinophils (Bld) [#/Vol]0 10*3/[facility] CenterEosinophils/100 WBC (Bld)0 %0.0 - 6.0 % [facility]itt[facility] Medical CenterErythrocyte distribution width (RBC) [Ratio] 14.3 %11.5 - 14.5 %[facility]als [facility] ClevelandHematocrit (Bld) [Volume fraction]30.4 %Low36.0 - 46.0 %[facility] Medical CenterHemoglobin (Bld) [Mass/Vol]10.9 g/dLLow12.0 - 16.0 g/dLUnHenry County HospitalImmature granulocytes (Bld) [#/Vol]0.08 10*3/uLUnHenry County HospitalImgature granulocytes/100 WBC (Bld)0.6 %0.0 - 0.9 %[facility] Comment on above:Immature Granulocyte Count (IG) includes promyelocytes, myelocytes and metamyelocytes but does not include bands. Percent differential counts (%) should be interpreted in the context of the absolute cell counts (cells/UL).Interpretation and review of laboratory resultsAbnormalUniSelect Medical Specialty Hospital - Cincinnati NorthLymphocytes (Bld) [#/Vol]1.39 10*3/uLUnHenry County HospitalLymphocytes/100 WBC (Bld)10.8 %13.0 - 44.0 %[facility] HospitalH (RBC) [Entitic mass]29.6 pg26.0 - 34.0 pgUnSCCI Hospital LimaHC (RBC) [Mass/Vol]35.9 g/dL32.0 - 36.0 g/dLUnSCCI Hospital LimaV (RBC) [Entitic vol]83 fL80 - 100 fLUniSelect Medical Specialty Hospital - Cincinnati NorthMonocytes (Bld) [#/Vol]0.62 10*3/uLUnHenry County Hospital Monocytes/100 WBC (Bld)4.8 %2.0 - 10.0 %[facility] Neutrophils (Bld) [#/Vol]10.8 10*3/uLHighUnHenry County Hospital Comment on above:Percent differential counts (%) should be interpreted in the context of the absolute cell counts (cells/uL).Neutrophils/100 WBC (Bld)83.6 % 40.0 - 80.0 %[facility] Medical CenterNucleated RBC/100 WBC (Bld) [Ratio]0 %[facility]itt[facility] Medical CenterPlatelets (Bld) [#/Vol]251 10*3/uL [facility] Medical CenterRBC (Bld) [#/Vol]3.68 10*6/[facility] HospitalWBC (Bld) [#/Vol]12.9 10*3/[facility]red Hospital DaytonUnHenry County HospitalChoriogonadotropin.beta subuniton 49-15-2081CBK.beta subunit Ot81375 m[IU]/mLHigh<5UnACMC Healthcare SystemComment on above:Order Comment: Total HCG measurement is performed using the Siemens AtellFuel3D immunoassay which detects intact HCG and free beta HCG subunit. This test is not indicated for use as a tumor marker. HCG testing is performed using a different test methodology at [facility] than other [facility]. Direct result comparison should only be made [...] source of the HCG elevation.Performed By: #### [id number] #### CARI Mark ([id number]) [facility] ([facility]) [address] [place], [place] [address]Comprehensive metabolic 2000 panelon 98-55-7411Npvhzqg BCP dye [Mass/Vol]3.6 g/dL3.4 - 5.0 g/dLUnHenry County HospitalALP [Catalytic activity/Vol]35 U/L33 - 110 U/[facility] HospitalALT With P-5'-P [Catalytic activity/Vol]14 U/L7 - 45 U/[facility] HospitalComment on above:Patients treated with Sulfasalazine may generate falsely decreased results for ALT.Anion gap [Moles/Vol]11 mmol/L10 - 20 mmol/L [facility] CenterAST With P-5'-P [Catalytic activity/Vol]11 U/L9 - 39 U/[facility] HospitalBilirubin [Mass/Vol]0.4 mg/dL0.0 - 1.2 mg/dLUniversity Hospitals of ClevelandCalcium [Mass/Vol]9 mg/dL8.6 - 10.6 mg/dL [facility] Medical CenterChloride [Moles/Vol]103 mmol/L98 - 107 mmol/L [facility] Medical CenterCO2 [Moles/Vol]25 mmol/L21 - 32 mmol/L [facility] CenterCreatinine [Mass/Vol]0.46 mg/dLLow0.50 - 1.05 mg/dLUnHenry County HospitaleGFR- PINFUniSelect Medical Specialty Hospital - Cincinnati NorthComment on above:Calculations of estimated GFR are performed using the 2020 CKD-EPI Study Refit equation without therace variable for the IDMS- Traceable creatinine methods. https://jasn.asnjournals.org/content//ASN.4952570387 Glucose [Mass/Vol]107 mg/fKOdzg87 - 99 mg/dLUnHenry County Hospital Interpretation and review of laboratory resultsAbnormalUniSelect Medical Specialty Hospital - Cincinnati NorthPotassium [Moles/Vol]3.3 mmol/LLow3.5 - 5.3 mmol/[facility] HospitalProtein [Mass/Vol]5.8 g/dLLow6.4 - 8.2 g/dLUnHenry County HospitalSodium [Moles/Vol]136 mmol/L136 - 145 mmol/[facility] HospitalUrea nitrogen [Mass/Vol]10 mg/dL6 - 23 mg/dLUnHenry County HospitalUnHenry County HospitalDRUG SCREEN,URINEon 08-15-2024 Amphetamines Screen Ql (U)NegativeNormalPresumptive NegativeUnACMC Healthcare SystemComment on above:Order Comment: Drug screen results are presumptive and should not be used to assesscompliance with prescribed medication. Contact the performing [facility] laboratoryto add-on definitive confirmatory testing if [...] phentermine, phenylpropanolamine, pseudoephedrine, and propranolol.Performed By: #### 85136-5 #### CARI Mark ([id number]) [facility] ([facility]) [address] [place], [place] [id number] Screen Ql (U)NegativeNormalPresumptive Negative [facility] HospitalComment on above:Order Comment: Drug screen results are presumptive and should not be used to assesscompliance with prescribed medication. Contact the performing [facility] laboratoryto add-on definitive confirmatory testing if [...] Comment: CUTOFF LEVEL: 200 NG/MLPerformed By: #### [id number] #### CARI Mark ([id number]) [facility] ([facility]) [address] [place] [address] 03377Uxgxcsxjctcsjsp Ql (U)NegativeNormalPresumptive Negative [facility] HospitalComment on above:Order Comment: Drug screen results are presumptive and should not be used to assesscompliance with prescribed medication. Contact the performing [facility] laboratoryto add-on definitive confirmatory testing if [...] Comment: CUTOFF LEVEL: 200 NG/MLPerformed By: #### [id number] #### CARI Mark ([id number]) [facility] ([facility]) [address] [place] [address] 98096Izeseyytxojeokx Screen Ql (U)NegativeNormalPresumptive NegativePromedica Memorial HospitalComment on above:Order Comment: Drug screen results are presumptive and should not be used to assesscompliance with prescribed medication. Contact the performing [facility] laboratoryto add-on definitive confirmatory testing if [...] Comment: CUTOFF LEVEL: 150 NG/MLPerformed By: #### 14359-0 #### CARI Mark ([id number]) [facility] ([facility]) [address] [place] [address] 86469Wdckmnizyhpd Screen Ql (U)PositiveAbnormalPresumptive NegativePromedica Memorial HospitalComment on above:Order Comment: Drug screen results are presumptive and should not be used to assesscompliance with prescribed medication. Contact the performing [facility] laboratoryto add-on definitive confirmatory testing if [...] Comment: CUTOFF LEVEL: 50 NG/MLPerformed By: #### 07940-4 #### CARI Mark ([id number]) [facility] ([facility]) [address] [place], [place] [address]fentaNYL+Norfentanyl Screen Ql (U)NegativeNormalPresumptive NegativePromedica Memorial HospitalComment on above:Order Comment: Drug screen results are presumptive and should not be used to assesscompliance with prescribed medication. Contact the performing [facility] laboratoryto add-on definitive confirmatory testing if [...] Comment: CUTOFF LEVEL: 5 NG/MLPerformed By: #### 66520-7 #### CARI Mark ([id number]) [facility] ([facility]) [address] [place] [address] 99101Eiiedcwpt Screen Ql (U)NegativeNormalPresumptive Negative [facility] HospitalComment on above:Order Comment: Drug screen results are presumptive and should not be used to assesscompliance with prescribed medication. Contact the performing [facility] laboratoryto add-on definitive confirmatory testing if [...] Comment: CUTOFF LEVEL: 150 NG/ML The metabolite J-bpiru-wxoxonqpoiqsmz (LAAM) is not detected by this method in concentrations that would be found in the urine of patients on LAAM therapy.Performed By: #### 59575-9 #### CARI Mark ([id number]) [facility] ([facility]) [address] [place] [address] 83643Uurgvze Screen Ql (U)PositiveAbnormalPresumptive Negative [facility] HospitalComment on above:Order Comment: Drug screen results are presumptive and should not be used to assesscompliance with prescribed medication. Contact the performing [facility] laboratoryto add-on definitive confirmatory testing if [...] to Oxycodone Screen, Urine result).Performed By: #### 47605-2 #### CARI Mark ([id number]) [facility] ([facility]) [id number] [place] [address] 21829nesCXOGOF+oxyMORphone Screen Ql (U)NegativeNormalPresumptive NegativePromedica Memorial HospitalComment on above:Order Comment: Drug screen results are presumptive and should not be used to assesscompliance with prescribed medication. Contact the performing [facility] laboratoryto add-on definitive confirmatory testing if [...] detect both oxycodone and oxymorphone.Performed By: #### 15019-6 #### CARI Mark ([id number]) [facility] ([facility]) [address] [place] [address] 37924Xbtiyllhsyynp Ql (U)NegativeNormalPresumptive Negative [facility] HospitalComment on above:Order Comment: Drug screen results are presumptive and should not be used to assesscompliance with prescribed medication. Contact the performing [facility] laboratoryto add-on definitive confirmatory testing if [...] has been reported with dextromethorphan.Performed By: #### 26514-6 #### CARI Mark ([id number]) [facility] ([facility]) [address] [place] [address] 64226Msdc Screen, Urineon 75-50-9076Dninonambsxg Screen Ql (U) NegativePresumptive NegativeSumma Health Wadsworth - Rittman Medical CenterComment on above: CUTOFF LEVEL: 500 NG/ML Cross-reactivity has been reported with high concentrations of the following drugs: buproprion, chloroquine, chlorpromazine, ephedrine, mephentermine, fenfluramine, phentermine, phenylpropanolamine, pseudoephedrine, and propranolol. Barbiturates Screen Ql (U)NegativePresumptive NegativeFayette County Memorial Hospital on above:CUTOFF LEVEL: 200 NG/MLBenzodiazepines Ql (U)Negative Presumptive [facility] on above:CUTOFF LEVEL: 200 NG/MLBenzoylecgonine Screen Ql (U)NegativePresumptive Negative [facility] on above:CUTOFF LEVEL: 150 NG/ML Cannabinoids Screen Ql (U)PositiveAbnormalPresumptive [facility] on above:CUTOFF LEVEL: 50 NG/ML fentaNYL+Norfentanyl Screen Ql (U)NegativePresumptive [facility] on above:CUTOFF LEVEL: 5 NG/MLInterpretation and review of laboratory resultsAbshriners hospitals for childrenalUKindred Hospital DaytonMethadone Screen Ql (U)NegativePresumptive [facility] Comment on above:CUTOFF LEVEL: 150 NG/ML The metabolite I-waywb-pdsvlqqqrqqham (LAAM) is not detected by this method in concentrations that would be found in the urine of patients on LAAM therapy. Opiates Screen Ql (U)PositiveAbnormalPresumptive [facility] on above:CUTOFF LEVEL: 300 NG/ML The opiate screen does not detect fentanyl, meperidine, or tramadol. Oxycodone is not consistently detected (refer to Oxycodone Screen, Urine result). oxyCODONE+oxyMORphone Screen Ql (U)NegativePresumptive [facility] on above:CUTOFF LEVEL: 100 NG/ML This test will accurately detect both oxycodone and oxymorphone. Phencyclidine Ql (U)NegativePresumptive [facility] on above:CUTOFF LEVEL: 25 NG/ML Cross-reactivity has been reported with dextromethorphan. Drug screen results are presumptive and should not be used to assess compliance with prescribed medication. Contact the performing [facility] laboratory to add-on definitive confirmatory testing [...] be directed to the laboratory medical directors. [facility] HospitalEC 12 lead Ordered By: Lynsey Luna on 09-23-4030Sogxlh Zhxw49RHXGgxwbughvdMercy Health St. [facility] Work Phone: [phone] Wmqw12hjkntkaMzgipqzkkmSt. [facility] of [facility] Hospital Work Phone: [phone] Ujwdtu479 [facility] Work Phone: P Qgtsv330 [facility] Work Phone: PR Ofzusrmb163 [facility] Work Phone: [phone] Fagpx202 [facility] Work Phone: [phone] Vuifl62vfffeSmxqmlzdcrBloomington Meadows Hospital Work Phone: QRS Rebokhqj33 [facility] Work Phone: [phone] Nzntwzmh331 [facility] Work Phone: [phone] Calculation(Bazett)422 [facility] Work Phone: [phone] Ijimwlgbmh609 [facility] Work Phone: [phone] Yqqn28htodrzhUaamnngrauSt. [facility] of [facility] Hospital Work Phone: [phone] Wzlt92chnlxbrAikiqzkftbSt. [facility] of [facility] Hospital Work Phone: [phone] Itlssr894 [facility] Work Phone: [phone] Okts12MJMIcoasfcezsOur Lady of [facility] Hospital Work Phone: [phone] Work Phone: [phone] 12 leadon 87-17-8942Mimbcj sinus rhythm Rightward axis Borderline ECG When compared with ECG of 13-AUG-2024 09:19, No significant change was found See ED provider note for full interpretation and clinical correlation Confirmed by Lynsey Luna ([id number]) on 08/15/2024 11:32:35 AMLynsey Flores APRN-LEATHER CURRIER - 08/15/2024 Normal sinus rhythm Rightward axis Borderline ECG When compared with ECG of 13-AUG-2024 09:19, No significant change was found See ED provider note for full interpretation and clinical correlation Confirmed by Lynsey Luna ([id number]) on 08/15/2024 11:32:35 AM [facility] Work Phone: ecG 12-LEADon 67-63-3071ACY 12-LEADVentricular Rate 70 Atrial Rate 70 P-R Interval 126 QRS Duration 72 Q-T Interval 386 QTC Calculation(Bazett) 416 P [place] 77 R [place] 88 T [place] 62 QRS Count 12 Q Onset 220 P Onset 157 P Offset 201 T Offset 413 QTC Fredericia 406 Diagnosis Normal sinus rhythm Normal ECG When compared with ECG of 14-AUG-2024 22:14, No significant change was found See ED provider note for full interpretation and clinical correlation Confirmed by Baylee Pizano ([id number]) on 08/17/2024 6:01:46 AMNormalUH [facility] CenterExtra Urine Doran Tubeon 01-58-7089Eqtgo TubeHold for add-ons. [facility] Medical CenterComment on above:Auto resulted.[facility] CenterHC ( test) Ql (U)Ordered By: Karis Newton on 94-34-3598Ntogfulhopqvfw and review of laboratory resultsAbCrystal Clinic Orthopedic CenterPre Test, UrPositiveAbnoUniversity Hospitals Elyria Medical CenterUnHenry County HospitalHCG.beta subunit Qnon 08-15-2024 Interpretation and review of laboratory resultsAbCrystal Clinic Orthopedic CenterToblue mountain hospital, inc. HCG measurement is performed using the Siemens Atellica immunoassay which detects intact HCG and free beta HCG subunit. This test is not indicated for use as a tumor marker. HCG testing is performed using a different test methodology at [facility] than other [facility]. Dir ect result comparison should only be made within the same method. [facility] HospitalHuman Chorionic Gonadotropin, Serum Quantitativeon 64-08-4475NXL.beta subunit Wg33719 m[IU]/mLHighNIParkwood HospitalComment on above:Low-level positive HCG results can [...] as the source of the HCG elevation.Lipaseon 87-94-6811Cvhgew [Catalytic activity/Vol]16 U/L9 - 82 U/[facility] HospitalLipase [Catalytic activity/Vol]on 46-07-3033Qwsqfkucfntvmw and review of laboratory resultsNoUniversity Hospitals Elyria Medical CenterVenipuncture immediately after or during the administration of Metamizole may lead to falsely low results. Testing should be performed immediately prior to Metamizole dosing.[facility] Medical CenterMagnesiumon 82-41-1842Bqyokalab [Mass/Vol]1.83 mg/dL1.60 - 2.40 mg/dLUnHenry County HospitalMagnesium [Mass/Vol]1.83 mg/dLNormal 1.60-2.40UnACMC Healthcare SystemComment on above:Order Comment: 2 hours after infusion complete.Performed By: #### 78797-9 #### CARI Mark ([id number]) [facility] ([facility]) [address] [place], [place] [address]No Panel Informationon 15-78-7208Brghphrwsdtjsq and review of laboratory resultsNoUniversity Hospitals Elyria Medical CenterUnHenry County HospitalUnHenry County HospitalTRANSTHORACIC ECHO (TTE) COMPLETEon 13-66-4921OMVFQAQHHSJXD ECHO (TTE) [facility], [address] [place] [address] and TRANSTHORACIC ECHOCARDIOGRAM REPORT Patient Name: INDU JORGENSEN Reading Physician: [id number] Zuleyka Gibbons MD Study Date: 08/15/2024 Ordering Provider: [id number] LENKA SCHWARTZ MRN/PID: [id number] Fellow: Nurse: Date of /Age: 6 1995 / 28 Medical Referral Coordinator: Isabella nelson RDCS, RVT Gender assigned at F Additional Staff: : Height: 167.64 cm Admit Date: Weight: 52.62 kg Admission Status: Inpatient - Priority discharge BSA / BMI: 1.59 m2 / 18.72 kg/m2 Blood Pressure: 127/64 mmHg Department Location: [facility] Non Invasive Study Type: TRANSTHORACIC ECHO (TTE) COMPLETE Diagnosis/ICD: Chest pain, unspecified-R07.9 Indication: Chest pain. CPT Code: Echo Complete w Full Doppler-53147 Patient History: Pertinent History: 14 weeks . [...] LA Area A4C: 13.0 cm2 LA [place] A4C: 4.0 cm RIGHT ATRIUM: Normal Ranges: [...] Kai: 0.94 PulmV Sys Kai: 71.25 cm/s [id number] Zuleyka Gibbons MD Electronically signed on 08/15/2024 at 12:27:54 PM Final [facility] Christ HospitalTropinin I.cardiac panel High sensitivity methodon 92-03-9258Pvsfkfqtfzblli and review of laboratory resultsNoUniversity Hospitals Elyria Medical CenterLess than 99th percentile of normal range cutoff- [...] using a different testing methodology at [facility] than at other [facility]. Direct result comparisons should only be made within the same method. [facility] CenterUnHenry County HospitalTroponin I, High Sensitivityon 52-33-7896Tzemvubo I.cardiac panel High sensitivity method ng/L0 - 34 ng/LUnHenry County HospitalUS Heart TransthoracicOrdered By: Zuleyka Gibbons on 45-73-3744Mmzunf Valve Area by Continuity of Peak Velocity2.08 na8IsfrbqxzefSumma Health W[facility] - [facility] Center Work Phone: [phone] pk chnp2xhHcGultecsqutHenry County Hospital Work Phone: [phone] pk vel1.38 m/[facility] Work Phone: [phone] A4C EF63.9UnHenry County Hospital Work Phone: [phone] EF63 %[facility] Work Phone: [phone] cmSumma Health Wadsworth - Rittman Medical Center Work Phone: [phone] diam1.96 [facility] Work Phone: [phone] E/A ratio2.36UnHenry County Hospital Work Phone: [phone] free wall pk S'14 cm/[facility] Work Phone: [phone] annular plane systolic excursion2.7 cm [facility] Work Phone: [phone] County Hospital Work Phone: [phone] Heart Transthoracicon 08-15-2024 [facility], [address] [place] [address] and TRANSTHORACIC ECHOCARDIOGRAM REPORT Patient Name: INDU Dorsey Physician: [id number] Zuleyka Gibbons MD Study Date: 08/15/2024 Ordering Provider: [id number] LENKA SCHWARTZ MRN/PID: [id number] Fellow: Nurse: Date of /Age: 6 1995 / 28 Medical Referral Coordinator: Isabella nelson RDCS, RVT Gender assigned at F Additional Staff: : Height: 167.64 cm Admit Date: Weight: 52.62 kg Admission Status: Inpatient - Priority discharge BSA / BMI: 1.59 m2 / 18.72 kg/m2 Blood Pressure: 127/64 mmHg Department Location: [facility] Non Invasive Study Type: TRANSTHORACIC ECHO (TTE) COMPLETE Diagnosis/ICD: Chest pain, unspecified-R07.9 Indication: Chest pain. CPT Code: Echo Complete w Full Doppler-50305 Patient History: Pertinent History: 14 weeks . [...] LA Area A4C: 13.0 cm2 [place] A4C: 4.0 cm RIGHT ATRIUM: Normal Ranges: [...] content not included)...Zuleyka Hopson MD - 08/15/2024 [facility], [address] [place] [address] and TRANSTHORACIC ECHOCARDIOGRAM REPORT Patient Name: INDU Dorsey Physician: [id number] Zuleyka Gibbons MD Study Date: 08/15/2024 Ordering Provider: [id number] LENKA Luisito LANA MRN/PID: [id number] Fellow: Nurse: Date of /Age: 6 1995 Medical Referral Coordinator: Isabella nelson RDCS, RVT Gender assigned at F Additional Staff: : Height: 167.64 cm Admit Date: Weight: 52.62 kg Admission Status: Inpatient - Priority discharge BSA / BMI: 1.59 m2 / 18.72 kg/m2 Blood Pressure: 127/64 mmHg Department Location: [facility] Non Invasive Study Type: TRANSTHORACIC ECHO (TTE) COMPLETE Diagnosis/ICD: Chest pain, unspecified-R07.9 Indication: Chest pain. CPT Code: Echo Complete w Full Doppler-84341 Patient History: Pertinent History: 14 weeks . [...] LA Area A4C: 13.0 cm2 [place] A4C: 4.0 cm RIGHT ATRIUM: Normal Ranges: [...] Kai: 0.94 PulmV Sys Kai: 71.25 cm/s [id number] Zuleyka Gibbons MD Electronically signed on 08/15/2024 at 12:27:54 PM Final [facility] Work Phone: US for pregnancyon . Single [...] Leon Null 08/15/2024 2:58 AM Dictation workstation: [id number] By: Leon Null and Dervishi Mario STUDY: US OB LIMITED 1+ FETUSES; 08/15/2024 2:14 am INDICATION: Signs/Symptoms:abdominal and chest pain during . COMPARISON: None. ACCESSION NUMBER(S): [id number] ORDERING CLINICIAN: LEÓN SPARROW TECHNIQUE: Multiple images [...] pain during . COMPARISON: None. ACCESSION NUMBER(S): [id number] ORDERING CLINICIAN: LEÓN SPARROW TECHNIQUE: Multiple images [...] Leon Null 08/15/2024 2:58 AM Dictation workstation: [id number] [facility] Work Phone: Radiology Study observation (narrative)[facility] Work Phone: US for pregnancyOrdered By: Leon Null on 77-53-5389VuipptiqbvHenry County Hospital Work Phone: Urinalysis complete W Reflex Culture panel (U)on 05-01-8477Bngefndoun (U)ClearClearUnHenry County HospitalBilirubin (U) [Mass/Vol]NegativeNEGATIVE mg/dLUnHenry County HospitalColor (U) YellowLight-Yellow, Yellow, Dark-YellowUnHenry County Hospital Epithelial cells.squamous Auto (Urine sed) [#/Area]1-9 (SPARSE)Reference range not established. /HPFUnHenry County HospitalGlucose Auto test strip (U) [Mass/Vol]NormalNormal mg/dLUnHenry County HospitalInterpretation and review of laboratory resultsAbnormalUniversBloomington Meadows HospitalKetones (U) [Mass/Vol]40 (2+)AbnormalNEGATIVE mg/dLUnHenry County Hospital Leukocyte esterase Auto test strip Ql (U)NegativeNEGATIVEUnHenry County HospitalMucus Auto (Urine sed) [#/Area]3+Reference range not established. /LPF [facility] Medical CenterNitrite Auto test strip Ql (U)NegativeNEGATIVE [facility] Medical CenterpH (U)6 [pH]5.0, 5.5, 6.0, 6.5, 7.0, 7.5, 8.0 [facility] Medical CenterProtein (U) [Mass/Vol]20 (TRACE)NEGATIVE, 10 (TRACE), 20 (TRACE) mg/dLUnHenry County HospitalRBC (U) [#/Vol] NegativeNEGATIVE mg/dLUnFalls Community Hospital and ClinicvelandRB Auto (Urine sed) [#/Area]3-5NONE, 1-2, 3-5 /Flower HospitalSpecific gravity (U) [Rel density]1.0231.005 - 1.035UnHenry County HospitalUrobilinogen (U) [Mass/Vol]NormalNormal mg/dLSumma Health Wadsworth - Rittman Medical CenterW Auto (Urine sed) [#/Area]0-80Ctjcfwpg3-3, NONE /PRIMARY CHILDREN'S HOSPITALUnMiami Valley HospitalAppearance (U)ClearNormalClearUnACMC Healthcare SystemComment on above:Performed By: #### 05302-2 #### CARI Mark ([id number]) [facility] ([facility]) [address] [place] [address] 12569Ywvdkbsuf (U) [Mass/Vol]NegativeNormalNEGATIVEUnACMC Healthcare SystemComment on above:Performed By: #### 18577-0 #### CARI Mark ([id number]) [facility] ([facility]) [address] [place] [address] 60017Itvyv (U)YellowNormalLight-Yellow, Yellow, Dark-Yellow [facility] HospitalComment on above:Performed By: #### 07083-1 #### CARI Mark ([id number]) [facility] ([facility]) [address] [place] [address] 93281Olviiccnfj cells.squamous Auto (Urine sed) [#/Area]1-9 (SPARSE)NormalReference range not established.[facility] HospitalComment on above:Performed By: #### 99458-0 #### CARI Mark ([id number]) [facility] ([facility]) [address] [place] [address] 99695Ftqpogm Auto test strip (U) [Mass/Vol]NormalNormalNormal [facility] HospitalComment on above:Performed By: #### 55257-4 #### CARI Mark ([id number]) [facility] ([facility]) [address] [place] [address] 85567Ubmzmyq (U) [Mass/Vol]40 (2+)AbnormalNEGATIVEUnACMC Healthcare SystemComment on above:Performed By: #### 78091-6 #### CARI Mark ([id number]) [facility] ([facility]) [address] [place] [address] 41736Eusxsivtu esterase Auto test strip Ql (U)NegativeNormal NEGATIVEUnACMC Healthcare SystemComment on above:Performed By: #### 36622-2 #### CARI Mark ([id number]) [facility] ([facility]) [address] [place] [address] 21289Ugjpe Auto (Urine sed) [#/Area]3+ /LPFNormalReference range not established.[facility] HospitalComment on above: Performed By: #### 15989-5 #### CARI Mark ([id number]) [facility] ([facility]) [address] [place] [address] 64220Arovviw Auto test strip Ql (U)NegativeNormalNEGATIVE [facility] HospitalComment on above:Performed By: #### 70061-3 #### CARI Mark ([id number]) [facility] ([facility]) [address] [place] [address] 67559kR (U)6.0 [pH]Normal5.0, 5.5, 6.0, 6.5, 7.0, 7.5, 8.0 [facility] HospitalComment on above:Performed By: #### 40524-0 #### CARI Mark ([id number]) [facility] ([facility]) [address] [place] [address] 40977Qzjvcqy (U) [Mass/Vol]20 (TRACE)NormalNEGATIVE, 10 (TRACE), 20 (TRACE)[facility] HospitalComment on above: Performed By: #### 01855-1 #### CARI Mark ([id number]) [facility] ([facility]) [address] [place] [address] 47114JZE (U) [#/Vol]NegativeNormalNEGATIVEPromedica Memorial HospitalComment on above:Performed By: #### 35991-5 #### CARI Mark ([id number]) [facility] ([facility]) [address] [place] [address] 85713PXF Auto (Urine sed) [#/Area]3-5NormalNONE, 1-2, 3-5 [facility] HospitalComment on above:Performed By: #### 32264-3 #### CARI Mark ([id number]) [facility] ([facility]) [address] [place] [address] 34310Payonmqs gravity (U) [Rel density]1.042Hksojt5.005-1.035 [facility] HospitalComment on above:Performed By: #### 02266-6 #### CARI Mark ([id number]) [facility] ([facility]) [address] [place] [address] 45451Ntwsvasaeeua (U) [Mass/Vol]NormalNormalNormalUniversMiddletown HospitalComment on above:Performed By: #### 84177-9 #### CARI Mark ([id number]) [facility] ([facility]) [address] [place] [address] 19125LYR Auto (Urine sed) [#/Area]5-20Pdyxahtk2-7, [facility]Point Medical CenterComment on above:Performed By: #### 30836-4 #### CARI Mark ([id number]) [facility] ([facility]) [address] [place] [address] 08326VU ABDOMEN 1 VIEWon 35-46-6084AH ABDOMEN 1 VIEWInterpreted By: Dennis Bobby and Ohs Zachary STUDY: XR ABDOMEN 1 VIEW; 08/15/2024 4:59 am INDICATION: Signs/Symptoms:abdominal pain. COMPARISON: None. ACCESSION NUMBER(S): [id number] ORDERING CLINICIAN: LENKA SCHWARTZ FINDINGS: There is [...] Dennis Bobby 08/15/2024 6:40 AM Dictation workstation: [id number] Christ HospitalXR Abdomen Single viewon 40-84-1831Epuoaxqcrjhhju bowel gas pattern. I personally reviewed the images/study and I agree with the findings as stated by Dr. Cesar Jordan. MACRO: none Signed by: Dennis Bobby 08/15/2024 6:40 AM Dictation workstation: [id number] By: Dennis Bobby and Ohs Zachary STUDY: XR ABDOMEN 1 VIEW; 08/15/2024 4:59 am INDICATION: Signs/Symptoms:abdominal pain. COMPARISON: None. ACCESSION NUMBER(S): [id number] ORDERING CLINICIAN: LENKA SCHWARTZ FINDINGS: There is a nonobstructive bowel gas pattern. No extraluminal or portal venous gas. Visualized soft tissues and osseous structures are unremarkable. The lung bases are clear. Dennis Davis MD - 08/15/2024 Interpreted By: Dennis Bobby and Ohs Zachary STUDY: XR ABDOMEN 1 VIEW; 08/15/2024 4:59 am INDICATION: Signs/Symptoms:abdominal pain. COMPARISON: None. ACCESSION NUMBER(S): [id number] ORDERING CLINICIAN: LENKA SCHWARTZ FINDINGS: There is [...] Dennis Bobby 08/15/2024 6:40 AM Dictation workstation: [id number] [facility] Work Phone: Radiology Study observation (narrative)[facility] Work Phone: XR Abdomen Single viewOrdered By: Dennis Bobby on 60-01-6411FdsvvtbqgcSumma Health [facility] Work Phone: bmPon 50-00-8325Thphn gap [Moles/Vol]16 mmol/LNormal 6-16[facility] HospitalComment on above:Performed By: #### [id number] #### [facility] [address], [place] [address]OIE/Creat Ratio32 No BftdvMako20-21TrqzqjDunlap Memorial Hospital Comment on above:Performed By: #### [id number] #### [facility] [address], [place] [address]Xcqbjtv [Mass/Vol]9.6 mg/dLNormal8.9-11.1FCorey HospitalComment on above:Performed By: #### [id number] #### [facility] [address] [place], [place] [address]Mcwkxbtc [Moles/Vol]102 mmol/VGknqkf083-553IqruizDunlap Memorial HospitalComment on above:Performed By: #### [id number] #### [facility] [address] [place], [place] [address]ED5 [Moles/Vol]20 mmol/PUmz63-07NntebkDunlap Memorial Hospital Comment on above:Performed By: #### [id number] #### [facility] [address] [place], [place] [address]Xrqtgvbard [Mass/Vol]0.4 mg/dLLow0.5-1.3FCorey HospitalComment on above:Performed By: #### [id number] #### [facility] [address], [place] [address]Ltorebq [Mass/Vol]152 mg/bYXvvhtv31-069IlssiiDunlap Memorial HospitalComment on above:Performed By: #### [id number] #### [facility] [address] [place], [place] [address]Jgerswdpv [Moles/Vol]3.1 mmol/LLow3.5-5.3FCorey HospitalComment on above:Performed By: #### 9841220 #### [facility] [address] [place], [place] [address]Gjoeml [Moles/Vol]135 mmol/BUtygio488-120VgwwabDunlap Memorial HospitalComment on above:Performed By: #### [id number] #### [facility] [address] [place], [place] [address]Zzmt nitrogen [Mass/Vol]13 mg/dLNormal5-21[facility] HospitalComment on above:Performed By: #### [id number] #### [facility] [address] [place], [place] [address]Fvvf hydroxybutyrate [Mass or moles/Vol]on 62-06-6776Wxzm hydroxybutyrate [Moles/Vol]0.43 mmol/LHigh0.02-0.27UnACMC Healthcare SystemComment on above:Order Comment: The beta-hydroxybutyrate test performance characteristics have been validated by [facility]. This test has not been approved by the FDA; however such approval is not necessary.Performed By: #### 97571-1 #### CARI Mark ([id number]) [facility] ([facility]) [address] [place] [address] 03042SKT W Auto Differential panel (Bld)on 37-76-5879Vjszrjhya (Bld) [#/Vol]0.02 x10*3/uLNormal0.00-0.10UnACMC Healthcare SystemComment on above:Performed By: #### 57831-3 #### CARI Mark ([id number]) [facility] ([facility]) [address] [place], [place] [address]Fyxuphwhy/100 WBC (Bld)0.2 %Normal0.0-2.0UnACMC Healthcare SystemComment on above:Performed By: #### 43659-2 #### CARI Mark ([id number]) [facility] ([facility]) [address] [place] [address] 32658Yfvipeugquq (Bld) [#/Vol]0.00 x10*3/uLNormal0.00-0.70 [facility] HospitalComment on above:Performed By: #### 23170-1 #### CARI Mark (58952) [facility] ([facility]) [address] [place] [address] 59792Vufpklovoza/100 WBC (Bld)0.0 %Normal0.0-6.0UnACMC Healthcare SystemComment on above:Performed By: #### 06094-2 #### CARI Mark ([id number]) [facility] ([facility]) [address] [place] [address] 07857Njkmltgqkcj distribution width (RBC) [Ratio]14.3 %Normal 11.5-14.5UnACMC Healthcare SystemComment on above:Performed By: #### 34142-2 #### CARI Mark (40656) [facility] ([facility]) [address] [place] [address] 80004Pioookeynb (Bld) [Volume fraction]30.4 %Low36.0-46.0 [facility] HospitalComment on above:Performed By: #### 28213-0 #### CARI Mark (60121) [facility] ([facility]) [address] [place] [address] 75813Urpzqnuosl (Bld) [Mass/Vol]10.9 g/dLLow12.0-16.0UnACMC Healthcare SystemComment on above:Performed By: #### 19326-9 #### CARI Mark (32136) [facility] ([facility]) [address] [place] [address] 69222Bujsacwv granulocytes (Bld) [#/Vol]0.08 x10*3/uLNormal 0.00-0.70UnACMC Healthcare SystemComment on above:Performed By: #### 87510-5 #### CARI Mark ([id number]) [facility] ([facility]) [address] [place] [address] 79807Ogtricjf granulocytes/100 WBC (Bld)0.6 %Normal0.0-0.9 [facility] HospitalComment on above:Result Comment: Immature Granulocyte Count (IG) includes promyelocytes, myelocytes and metamyelocytes but does not include bands. Percent differential counts (%) should be interpreted in the context of the absolute cell counts (cells/UL). Performed By: #### 93909-6 #### CARI Mark ([id number]) [facility] ([facility]) [address] [place] [address] 18515Yckhfkxcudr (Bld) [#/Vol]1.39 x10*3/uLNormal1.20-4.80 [facility] HospitalComment on above:Performed By: #### 65923-0 #### CARI Mark (74779) [facility] ([facility]) [address] [place] [address] 76096Mitizxjgkbo/100 WBC (Bld)10.8 %Xbohqr76.0-44.0UnACMC Healthcare SystemComment on above:Performed By: #### 43844-6 #### CARI Mark ([id number]) [facility] ([facility]) [address] [place] [address] 98992QJS (RBC) [Entitic mass]29.6 kvJrnepo20.0-34.0UnACMC Healthcare SystemComment on above:Performed By: #### 78630-9 #### CARI Mark (60247) [facility] ([facility]) [address] [place] [address] 76738UPTB (RBC) [Mass/Vol]35.9 g/rTXzzrdt26.0-36.0UnACMC Healthcare SystemComment on above:Performed By: #### 52151-1 #### CARI Mark (73102) [facility] ([facility]) [address] [place] [address] 20440QUN (RBC) [Entitic vol]83 wGVfmqxt27-648ZahbcskuhqACMC Healthcare SystemComment on above:Performed By: #### 45748-4 #### CARI Mark (76492) [facility] ([facility]) [address] [place], [place] [address]Fppeotkzl (Bld) [#/Vol]0.62 x10*3/uLNormal0.10-1.00UnACMC Healthcare SystemComment on above:Performed By: #### 08612-1 #### CARI Mark (26637) [facility] ([facility]) [address] [place], [place] [address]Bmrxuzyuj/100 WBC (Bld)4.8 %Normal2.0-10.0UnACMC Healthcare SystemComment on above:Performed By: #### 21088-6 #### CARI Mark (10492) [facility] ([facility]) [address] [place] [address] 679[address]Pjnqbrrkeam (Bld) [#/Vol]10.80 x10*3/uLHigh1.20-7.70 [facility] HospitalComment on above:Result Comment: Percent differential counts (%) should be interpreted in the context of the absolute cell counts (cells/uL).Performed By: #### 25424-4 #### CARI Mark (34109) [facility] ([facility]) [address] [place], [place] [address]Dtyxviqnaxc/100 WBC (Bld)83.6 %Dzjnpi96.0-80.0UnACMC Healthcare SystemComment on above:Performed By: #### 28664-7 #### CARI Mark (01705) [facility] ([facility]) [address] [place], [place] [address]Mbcfaxtgu RBC/100 WBC (Bld) [Ratio]0.0 /100 WBCsNormal0.0-0.0 [facility] HospitalComment on above:Performed By: #### 41317-9 #### CARI Mark (31086) [facility] ([facility]) [address] [place], [place] [address]Npzalnrgc (Bld) [#/Vol]251 x10*3/xAWbvojr383-033DuqdrspgovPromedica Memorial HospitalComment on above:Performed By: #### 08207-5 #### CARI Mark (50932) [facility] ([facility]) [address] [place], [place] [address]OOH (Bld) [#/Vol]3.68 x10*6/uLLow4.00-5.20[facility] HospitalComment on above:Performed By: #### 99307-8 #### CARI Mark (82134) [facility] ([facility]) [address] [place] [address] 19619JGZ (Bld) [#/Vol]12.9 x10*3/uLHigh4.4-11.3[facility] HospitalComment on above:Performed By: #### 77532-1 #### CARI Mark ([id number]) [facility] ([facility]) [address] [place] [address] 13687KBG w/ Auto Diffon 01-96-8789Xfqypuhr Absolute0.0 E9/LNormal 0.0-0.2[facility] Hospital CenterComment on above:Performed By: #### [id number] #### [facility] [address] [place], [place] [address]Wrtosmorz/100 WBC (Bld)0.1 %Normal0.0-2.0[facility] HospitalComment on above:Performed By: #### 4842303 #### [facility] [address], [place] [address]Kzw Absolute0.0 E9/LNormal0.0-0.5[facility] Comment on above:Performed By: #### 4598578 #### [facility] [address], [place] [address]Ewwxhlsxifc/100 WBC (Bld)0.0 %Normal0.0-8.0[facility] HospitalComment on above:Performed By: #### [id number] #### [facility] [address] [place], [place] [address]Ixnmoeermqv distribution width (RBC) [Ratio]15.0 %High10.9-14.2 [facility] HospitalComment on above:Performed By: #### [id number] #### [facility] [address], [place] [address]Lsvniumxki (Bld) [Volume fraction]39.4 %Qtshuf90.0-46.0[facility] HospitalComment on above:Performed By: #### 6778722 #### [facility] [address] [place], [place] [address]Wjjtdryzdy (Bld) [Mass/Vol]13.5 g/mEZkheed84.0-16.0[facility] HospitalComment on above:Performed By: #### [id number] #### [facility] [address] [place] [address]Mlbjk Absolute1.1 E9/LNormal1.0-4.0[facility] Comment on above:Performed By: #### [id number] #### [facility] [address] [place], [place] [address]Rnibsxzedkr/100 WBC (Bld)5.6 %Low14.0-50.0[facility] HospitalComment on above:Performed By: #### [id number] #### [facility] [address] [place] [address] 147[address]UMY (RBC) [Entitic mass]29.7 qqFlpowq70.0-34.0[facility] HospitalComment on above:Performed By: #### 6128632 #### [facility] [address] [place], [place] [address]AUZU (RBC) [Mass/Vol]34.2 g/oBCxzzhh03.4-36.0[facility] HospitalComment on above:Performed By: #### 5761660 #### [facility] [address] [place], [place] [address]RPQ (RBC) [Entitic vol]86.9 cZJrdbui11.0-100.0Fisher [facility]autam Medical CenterComment on above:Performed By: #### [id number] #### [facility] [address] [place], [place] [address]Huvz Absolute0.8 E9/LNormal0.2-1.0[facility] Comment on above:Performed By: #### 7668521 #### [facility] [address] [place], [place] [address]Oswkjlxnu/100 WBC (Bld)3.9 %Low4.0-14.0[facility] HospitalComment on above:Performed By: #### 5771799 #### [facility] [address] [place], [place] [address]Fxhlju Bjlknitp63.3 E9/LHigh2.0-7.5FCorey Hospital Comment on above:Performed By: #### 8943527 #### [facility] [address] [place], [place] [address]Udywqm Auto90.4 %High36.0-75.0[facility] Comment on above:Performed By: #### [id number] #### [facility] [address] [place], [place] [address]Fsxioppb441.0 E9/JFnxwmy338.0-500.0[facility] Comment on above:Performed By: #### 7761807 #### [facility] [address] [place], [place] [address]Qjdjukvn mean volume (Bld) [Entitic vol]8.5 fLNormal6.4-10.8 [facility] HospitalComment on above:Performed By: #### [id number] #### [facility] [address] [place], [place] [address]TLP4.5 E12/LNormal4.3-5.9[facility] HospitalComment on above:Performed By: #### 0562338 #### [facility] [address] [place], [place] [address]UEF04.2 E9/LHigh4.0-11.0[facility] HospitalComment on above:Result Comment: Peripheral smear review performed.Performed By: #### [id number] #### [facility] [address] [place], [place] [address]WMRFNNOTYCmnnpou By: SYSTEM SYSTEM on 35-34-6594Stasmktykcqb Screen method >1000 ng/mL Ql (U)NEGATIVE 9 [...] {ratio}Normal 1.1 - 2.2Remisol ChemALP [Catalytic activity/Vol]46 [iU]/nPqocva51 - 98 Int._Unit/LRemisol ChemALT No additional P-5'-P [Catalytic activity/Vol]18 [iU]/dNormal6 - 46 Int._Unit/LRemisol ChemAnion gap [Moles/Vol]16 mmol/LNormal6 - 16 mEq/LRemisol ChemAST [Catalytic activity/Vol]17 [iU]/dNormal5 - 43 Int._Unit/LRemisol ChemBilirubin [Mass/Vol]0.5 mg/dLNormal0.0 - 1.1 mg/dLRemisol ChemBilirubin.direct [Mass/Vol]0.1 mg/dLNormal0.0 - 0.4 mg/dLRemisol Chem Bilirubin.indirect [Mass or moles/Vol]0.4 mg/dLNormal0.1 - 0.9 mg/dLRemisol Chem Calcium [Mass/Vol]9.6 mg/dLNormal8.9 - 11.1 mg/dLRemisol ChemChloride [Moles/Vol]102 mmol/EOqueox644 - 111 mmol/LRemisol ChemCO2 [Moles/Vol]20 mmol/L Low21 - 31 mmol/LRemisol ChemCreatinine [Mass/Vol]0.4 mg/dLLow0.5 - 1.3 mg/dL Remisol ChemGFR/1.73 sq M.predicted MDRD (S/P/Bld) [Vol rate/Area]136 mL/min/1.73 w2Hbtkla>=59mL/min/1.73 m1Miswwst ChemGlobulin (S) [Mass/Vol]2.9 g/dLNormal1.4 - 4.0 gm/dLRemisol ChemGlucose [Mass/Vol]152 mg/nDGxhwyb47 - 199 mg/dLRemisol ChemLipase [Catalytic activity/Vol]58 U/WKxovrj52 - 58 unit/L Remisol ChemPotassium [Moles/Vol]3.1 mmol/LLow3.5 - 5.3 mmol/LRemisol Chem Protein [Mass/Vol]7.3 g/dLNormal6.0 - 7.8 gm/dLRemisol ChemSodium [Moles/Vol]135 mmol/PBghfgo154 - 145 mmol/LRemisol ChemTroponin HS6.50 pg/mLLow10.10 - 27.10 pg/mLRemisol ChemComment on above:Interpretive Data: The 95% CI (Confidence Interval) PPV (Positive Predictive Value) for myocardial infarction in females is 38 pg/mL, in males 51 pg/mL. The results should be used in conjunction with clinical conditions of myocardial infarction. (Access High Sensitivity Troponin I Instructions For Use, Jade Lar[place]ie, October 2017)Urea nitrogen [Mass/Vol]13 mg/dLNormal5 - 21 mg/dLRemisol ChemUrea nitrogen/Creatinine [Mass ratio]32 mg/tfHltm08 - 20Remisol ChemComprehensive metabolic 2000 panelon 15-80-0472Qusoupt BCP dye [Mass/Vol]3.6 g/dLNormal3.4-5.0 [facility] HospitalComment on above:Performed By: #### 58561-4 #### CARI Mark ([id number]) [facility] ([facility]) [address] [place], [place] [address]ANS [Catalytic activity/Vol]35 U/VYsmtnq87-818NbgymradvuACMC Healthcare SystemComment on above:Performed By: #### 13510-1 #### CARI Mark (83994) [facility] ([facility]) [address] [place] [address] 12[address]BZF With P-5'-P [Catalytic activity/Vol]14 U/LNormal7-45 [facility] HospitalComment on above:Result Comment: Patients treated with Sulfasalazine may generate falsely decreased results for ALT.Performed By: #### 88824-4 #### CARI Mark (87750) [facility] ([facility]) [address] [place], [place] [address]Uyfts gap [Moles/Vol]11 mmol/DXbrrjw06-17ZeivkonkpcACMC Healthcare SystemComment on above:Performed By: #### 99152-8 #### CARI Mark (45799) [facility] ([facility]) [address] [place], [place] [address]RQP With P-5'-P [Catalytic activity/Vol]11 U/LNormal9-39 [facility] HospitalComment on above:Performed By: #### 41680-7 #### CARI Mark (51997) [facility] ([facility]) [address] [place], [place] [address]Djjuyguyr [Mass/Vol]0.4 mg/dLNormal0.0-1.2UnACMC Healthcare SystemComment on above:Performed By: #### 04047-6 #### CARI Mark (83519) [facility] ([facility]) [address] [place] [address] 04[address]Xvagiuf [Mass/Vol]9.0 mg/dLNormal8.6-10.6[facility] HospitalComment on above:Performed By: #### 66012-3 #### CARI Mark (44996) [facility] ([facility]) [address] [place] [address]Unwdwyer [Moles/Vol]103 mmol/SUawbii08-457FnbwnrompoACMC Healthcare SystemComment on above:Performed By: #### 79876-4 #### CARI Mark (48017) [facility] ([facility]) [address] [place] [address]IZ3 [Moles/Vol]25 mmol/FNnvxpu93-47TrzbsylihxACMC Healthcare SystemComment on above:Performed By: #### 79584-5 #### CARI Mark (35654) [facility] ([facility]) [address] [place], [place] [address]Oybzxulrri [Mass/Vol]0.46 mg/dLLow0.50-1.05UnACMC Healthcare SystemComment on above:Performed By: #### 45614-0 #### CARI Mark (16026) [facility] ([facility]) [address] [place], [place] [address]HGK/1.73 sq M.predicted MDRD (S/P/Bld) [Vol rate/Area] mL/min/{1.73_m2}Normal>60UnACMC Healthcare SystemComment on above:Result Comment: Calculations of estimated GFR are performed using the 2020 CKD-EPI Study Refit equation without the race variable for the IDMS-Traceable creatinine methods. https://jasn.asnjournals.org/content/early//ASN.2112587277Mrfxqdeoa By: #### 75970-7 #### CARI Mark (45921) [facility] ([facility]) [address] [place], [place] [address]Ngljzdd [Mass/Vol]107 mg/wWBsgl50-91QoegpqoojjACMC Healthcare SystemComment on above:Performed By: #### 93989-6 #### CARI Mark (10304) [facility] ([facility]) [address] [place], [place] [address]Nrtqacifd [Moles/Vol]3.3 mmol/LLow3.5-5.3[facility] Memorial HospitalComment on above:Performed By: #### 96701-2 #### CARI JACKSON L ([id number]) [facility] ([facility]) [address] [place], [place] [address]Ivihfte [Mass/Vol]5.8 g/dLLow6.4-8.2UnACMC Healthcare SystemComment on above:Performed By: #### 73777-1 #### CARI JACKSON L ([id number]) [facility] ([facility]) [address] [place], [place] [address]Wjucjt [Moles/Vol]136 mmol/ESmantq986-509CkttimxthiPromedica Memorial HospitalComment on above:Performed By: #### 06342-7 #### CARI Mark ([id number]) [facility] ([facility]) [address] [place], [place] [address]Zjzy nitrogen [Mass/Vol]10 mg/dLNormal6-23Prom[facility] Memorial HospitalComment on above:Performed By: #### 46420-4 #### CARI GUZMANMOADELINAER L ([id number]) [facility] ([facility]) [address] [place], [place] [address]SAU 12-LEADon [id number] 12-LEADVentricular Rate 82 Atrial Rate 82 P-R Interval 118 QRS Duration 70 Q-T Interval 362 QTC Calculation(Bazett) 422 P [place] 78 R [place] 93 T [place] 46 QRS Count 14 Q Onset 220 P Onset 161 P Offset 204 T Offset 401 QTC Fredericia 401 Diagnosis Normal sinus rhythm Rightward axis Borderline ECG When compared with ECG of 13-AUG-2024 09:19, No significant change was found See ED provider note for full interpretation and clinical correlation Confirmed by Lynsey Luna ([id number]) on 08/15/2024 11:32:35 [facility] CenterED Note-Physicianon [id number] Note-PhysicianED Note-Physician Basic Information Time Seen: Bk Garduno DO 08/14/2024 02:41 Chief Complaint Pt. reports N/V since this AM. Pt. states she went to [place] ED this AM and then f/u with [...] 25 mL/hr, Infuse ove (more content not included)...[facility] Comment on above:Result Comment: Electronically Signed By: Silvana Lizama, Boo Briceno\.br\Date and Time Signed: 08/14/2510:44 EDTED Note-PhysicianED Note-Physician Basic Information Time Seen: Bk Garduno DO 08/14/2024 02:41 Chief Complaint Pt. reports N/V since this AM. Pt. states she went to [place] ED this AM and then f/u with [...] 25 mL/hr, Infuse ove (more content not included)...[facility] Comment on above:Result Comment: Electronically Signed By: Bk Garduno DO.br\Date and Time Signed: 08/14/24 06:20 EDTExtra Blueon 31-28-1417Chae Collected PlasmaYesInvalid Interpretation [facility] SystemComment on above:Performed By: #### [id number] #### [facility] [address], [place] [address]Iln panel (BldV)on 51-23-7004Tjuxt gap 4 (BldV) [Moles/Vol]8 mmol/LLow10.0 - 25.0 mmol/[facility] HospitalBase excess Calc (BldV) [Moles/Vol]3.3 mmol/LHigh-2.0 - 3.0 mmol/[facility] HospitalCalcium.ionized (BldV) [Moles/Vol]1.22 mmol/L1.10 - 1.33 mmol/L [facility] Medical CenterChloride (BldV) [Moles/Vol]103 mmol/L98 - 107 mmol/[facility] HospitalCO2 (BldV) [Partial pressure]36 mm[Hg]Low [facility] Medical CenterGlucose [Mass/Vol]108 mg/bOItfo46 - 99 mg/dL [facility] Medical CenterHCO3 (Bld) [Moles/Vol]26.8 mmol/LHigh22.0 - 26.0 mmol/[facility] HospitalHematocrit Est (Bld) [Volume fraction]35 %Low36.0 - 46.0 %[facility] Medical CenterHemoglobin (Bld) [Mass/Vol]11.5 g/dLLow12.0 - 16.0 g/dLSumma Health Wadsworth - Rittman Medical CenterInhaled oxygen llrqhqnynzgor49 %[facility] Medical CenterInterpretation and review of laboratory resultsAbnormalUniSelect Medical Specialty Hospital - Cincinnati NorthLactate (BldV) [Moles/Vol]0.7 mmol/L0.4 - 2.0 mmol/[facility] Oxygen (BldV) [Partial pressure]86 mm[Hg]HighUnHenry County Hospital Oxygen saturation in Venous blood98 %High45 - 75 %[facility] Medical CenterOxyhemoglobin (BldV) [Mass fraction]94.8 %High45.0 - 75.0 %[facility] Medical CenterpH (BldV)7.48 [pH]High7.33 - 7.43 pHUnHenry County HospitalPotassium (BldV) [Moles/Vol]3.4 mmol/LLow3.5 - 5.3 mmol/[facility] HospitalSodium (BldV) [Moles/Vol]134 mmol/XWxn067 - 145 mmol/L [facility] Medical CenterUnHenry County HospitalAnion gap 4 (BldV) [Moles/Vol]8.0 mmol/LLow10.0-25.0[facility] HospitalComment on above:Performed By: #### 21478-9 #### CARI Mark ([id number]) [facility] ([facility]) [id number] [place] [address] 46234Chup excess Calc (BldV) [Moles/Vol]3.3 mmol/LHigh-2.0-3.0 [facility] HospitalComment on above:Performed By: #### 44697-9 #### CARI Mark ([id number]) [facility] ([facility]) [address] [place] [address] 89396Pjcenrt.ionized (BldV) [Moles/Vol]1.22 mmol/LNormal1.10-1.33 [facility] HospitalComment on above:Performed By: #### 66608-4 #### CARI Mark ([id number]) [facility] ([facility]) [address] [place] [address] 54041Yvueubut (BldV) [Moles/Vol]103 mmol/APcevyn11-859ZacooeuoaoACMC Healthcare SystemComment on above:Performed By: #### 56010-3 #### CARI Mark ([id number]) [facility] ([facility]) [address] [place] [address] 04806WK3 (BldV) [Partial pressure]36 mm AeZuf64-57HtbfudrtsbACMC Healthcare SystemComment on above:Performed By: #### 46382-7 #### CARI Mark ([id number]) [facility] ([facility]) [address] [place] [address] 34177Xnkdppk [Mass/Vol]108 mg/wXTsyl01-01FeiacvfgezACMC Healthcare SystemComment on above:Performed By: #### 58785-2 #### CARI Mark ([id number]) [facility] ([facility]) [address] [place] [address] 13721OPM8 (Bld) [Moles/Vol]26.8 mmol/LHigh22.0-26.0UnACMC Healthcare SystemComment on above:Performed By: #### 54629-5 #### CARI Mark ([id number]) [facility] ([facility]) [address] [place] [address] 57776Xpxcglvqta Est (Bld) [Volume fraction]35.0 %Low36.0-46.0 [facility] HospitalComment on above:Performed By: #### 21742-7 #### CARI Mark ([id number]) [facility] ([facility]) [address] [place] [address] 08386Mqruwwtwkq (Bld) [Mass/Vol]11.5 g/dLLow12.0-16.0[facility] HospitalComment on above:Performed By: #### 69811-3 #### CARI Mark ([id number]) [facility] ([facility]) [address] [place] [address] 35471Wjexild oxygen misorvpgummsf87 %NormalUnACMC Healthcare SystemComment on above:Performed By: #### 66635-0 #### CARI Mark ([id number]) [facility] ([facility]) [address] [place] [address] 89020Aoyuwsl (BldV) [Moles/Vol]0.7 mmol/LNormal0.4-2.0[facility] Memorial HospitalComment on above:Performed By: #### 50828-7 #### CARI Mark ([id number]) [facility] ([facility]) [address] [place] [address] 31634Gsjrcm (BldV) [Partial pressure]86 mm MwCidn54-46MaylrmwoozACMC Healthcare SystemComment on above:Performed By: #### 65924-7 #### CARI Mark ([id number]) [facility] ([facility]) [address] [place] [address] 10109Bsvyev saturation in Venous blood98 %Mjxk40-93QbxeniwfidPromedica Memorial HospitalComment on above:Performed By: #### 57529-7 #### CARI Mark ([id number]) [facility] ([facility]) [address] [place] [address] 27209Ltkfzovufuhma (BldV) [Mass fraction]94.8 %High45.0-75.0 [facility] HospitalComment on above:Performed By: #### 10991-3 #### CARI Mark ([id number]) [facility] ([facility]) [address] [place] [address] 57247xI (BldV)7.48 [pH]High7.33-7.43UnACMC Healthcare SystemComment on above:Performed By: #### 96842-3 #### CARI Mark ([id number]) [facility] ([facility]) [address] [place] [address] 65045Trdrrlpzk (BldV) [Moles/Vol]3.4 mmol/LLow3.5-5.3UnACMC Healthcare SystemComment on above:Performed By: #### 31405-4 #### CARI Mark ([id number]) [facility] ([facility]) [address] [place] [address] 07338Vcikwc (BldV) [Moles/Vol]134 mmol/SNrb768-733VkrcjrcuepACMC Healthcare SystemComment on above:Performed By: #### 51008-6 #### CARI Mark ([id number]) [facility] ([facility]) [address] [place] [address] 06268MFTFWIJBKWKfdchqc By: SYSTEM SYSTEM on 08-14-2024 Basophils/100 WBC (Bld)0.1 %Normal0.0 - 2.0 %Remisol HemeBasophils/Leukocytes Auto (Bld) [Pure # fraction]0.0 E9/LNormal0.0 - 0.2 E9/LRemisol HemeEosinophils (Bld) [#/Vol]0.0 E9/LNormal0.0 - 0.5 E9/LRemisol HemeEosinophils/100 WBC (Bld) 0.0 %Normal0.0 - 8.0 %Remisol HemeErythrocyte distribution width (RBC) [Ratio] 15.0 %High10.9 - 14.2 %[facility]isol HemeHematocrit (Bld) [Volume fraction]39.4 % Hnyofb85.0 - 46.0 %[facility]isol HemeHemoglobin (Bld) [Mass/Vol]13.5 g/wFSouguj15.0 - 16.0 gm/dLRemisol HemeLymphocytes (Bld) [#/Vol]1.1 E9/LNormal1.0 - 4.0 E9/L Remisol HemeLymphocytes/100 WBC (Bld)5.6 %Low14.0 - 50.0 %Remisol HemeMCH (RBC) [Entitic mass]29.7 znUtzqhl84.0 - 34.0 pgRemisol HemeMCHC (RBC) [Mass/Vol]34.2 g/zIQydzmj83.4 - 36.0 gm/dLRemisol HemeMCV (RBC) [Entitic vol]86.9 jPOiancu78.0 - 100.0 fLRemisol HemeMonocytes (Bld) [#/Vol]0.8 E9/LNormal0.2 - 1.0 E9/LRemisol HemeMonocytes/100 WBC (Bld)3.9 %Low4.0 - 14.0 %Remisol HemeNeutrophils (Bld) [#/Vol]18.3 E9/LHigh2.0 - 7.5 E9/LRemisol HemeNeutrophils/100 WBC (Bld)90.4 % High36.0 - 75.0 %Remisol HemePlatelet mean volume (Bld) [Entitic vol]8.5 fL Normal6.4 - 10.8 fLRemisol HemePlatelets (Bld) [#/Vol]319.0 E9/IIwvxsy380.0 - 500.0 E9/LRemisol HemeRBC (Bld) [#/Vol]4.5 E12/LNormal4.3 - 5.9 E12/LRemisol HemeWBC corrected for nucl RBC Auto (Bld) [#/Vol]20.2 E9/LHigh4.0 - 11.0 E9/L Rem[facility] HemeComment on above:Result Comment: Peripheral smear review performed. Hep Func Panelon 95-71-4736Gcmhdag [Mass/Vol]4.4 g/dLNormal3.3-5.0[facility] HospitalComment on above:Performed By: #### [id number] #### [facility] [address], [place] [address]Khfgxrl/Globulin [Mass ratio]1.5 {ratio}Normal1.1-2.2FCorey HospitalComment on above:Performed By: #### [id number] #### [facility] [address], [place] [address]Gxa Phos46 Int._Unit/NDruxwq87-77UwholgDunlap Memorial Hospital Comment on above:Performed By: #### [id number] #### [facility] [address], [place] [address]EDY93 Int._Unit/LNormal6-46[facility] HospitalComment on above:Performed By: #### [id number] #### [facility] [address], [place] [address]PVZ38 Int._Unit/LNormal5-43[facility] HospitalComment on above:Performed By: #### [id number] #### [facility] [address], [place] [address]Osfl Direct0.1 mg/dLNormal0.0-0.4FCorey Hospital Comment on above:Performed By: #### [id number] #### [facility] [address], [place] [address]Gbkl Indirect0.4 mg/dLNormal0.1-0.9[facility] Comment on above:Performed By: #### [id number] #### [facility] [address], [place] [address]Pdio Total0.5 mg/dLNormal0.0-1.1FCorey Hospital Comment on above:Performed By: #### [id number] #### [facility] [address], [place] [address]Ehnfljwq (S) [Mass/Vol]2.9 g/dLNormal1.4-4.0[facility] HospitalComment on above:Performed By: #### [id number] #### [facility] [address], [place] [address]Efkvart [Mass/Vol]7.3 g/dLNormal6.0-7.8[facility] HospitalComment on above:Performed By: #### [id number] #### [facility] [address], [place] [address]Diqjqktlm Clinical Summaryon 63-23-9646Bmzfxrijr Clinical SummaryInpatient Clinical Summary [address] [address] Clinical Summary Person Information Name: INDU [facility] Age: 28 Years : 1995 Sex: Female PCP: Yasmin WELCH DO Marital Status: Phone: [phone] Race: White Ethnicity: Non- or Language: Algerian Visit Id: Visit Reason: Abdominal pain; Back pain; Vomiting; Nausea; N/V/D/FEVER - 14 WEEKS Speciality: Acuity: Ante Enc Type: Observation Med Service: Obstetrics Arrival: 08/14/2024 01:36:38 Discharge: 08/14/2024 19:55:00 Dispo Type: Home (Routine DC) Address: [address] [place] [address] [id number] Provider Notes: Diagnosis: Acute hypokalemia; Acute vomiting [...] range between ( 80.0 and 100.0 ) [place] Auto: 3.9 % -- Normal range between ( 4.0 and 14.0 ) MPV: 8.5 fL -- Normal range between ( 6.4 and 10.8 ) Neutro Auto: 90.4 % -- Normal range between ( 36.0 and 75.0 ) Platelet: 319.0 E9/L -- Normal range between ( 150.0 and 500.0 ) WBC: 20.2 E9/L -- Normal range between ( 4.0 and 11.0 ) [place] Absolute: 0.8 E9/L -- Normal range between [...] ( 0.0 and 1.1 (more content not included)...NormalDunlap Memorial HospitalInpatient Clinical SummaryInpatient Clinical Summary [address] [address] Clinical Summary Person Information Name: INDU [facility] Age: 28 Years : 1995 Sex: Female PCP: Yasmin WELCH DO Marital Status: Phone: [phone] Race: White Ethnicity: Non- or Language: Algerian Visit Id: Visit Reason: Abdominal pain; Back pain; Vomiting; Nausea; N/V/D/FEVER - 14 WEEKS Speciality: Acuity: Ante Enc Type: Observation Med Service: Obstetrics Arrival: 08/14/2024 01:36:38 Discharge: Dispo Type: Address: [address] [place] [address] [id number] Provider Notes: Diagnosis: Acute hypokalemia; Acute vomiting [...] range between ( 80.0 and 100.0 ) [place] Auto: 3.9 % -- Normal range between ( 4.0 and 14.0 ) MPV: 8.5 fL -- Normal range between ( 6.4 and 10.8 ) Neutro Auto: 90.4 % -- Normal range between ( 36.0 and 75.0 ) Platelet: 319.0 E9/L -- Normal range between ( 150.0 and 500.0 ) WBC: 20.2 E9/L -- Normal range between ( 4.0 and 11.0 ) [place] Absolute: 0.8 E9/L -- Normal range between [...] and 199 ) Li (more content not included)...NormalDunlap Memorial HospitalInpatient Patient Summaryon 22-59-6982Ukgdhpxfy Patient SummaryInpatient Patient Summary [address] [address] Patient Discharge Instructions PERSON INFORMATION Name: INDU ST Date of : 1995 Current Date: 08/14/2024 20:12:22 PHYSICIANS Admitting Physician: Lucina ELLISON, Saundra Peace Primary Care Physician: Yasmin WELCH DO PCP Phone Number: [phone] Comment: Discharge Diagnosis: Acute hypokalemia; Acute vomiting [...] results: None Follow up: With: Address: When: [facility], [address] [place] [address] , [place] [address] Business (1) In 12 days 08/26/2024 Comments: [...] Last Dose: Next Dose: multivitamin, ( 19 ([place])) Oral. Last Dose: Next Dose: naloxone (naloxone [...] more likely to de (more content not included)...[facility] HospitalIn[facility] Patient SummaryInpatient Patient Summary [address] [address] Patient Discharge Instructions PERSON INFORMATION Name: INDU ST Date of : 1995 Current Date: 08/14/2024 19:02:29 PHYSICIANS Admitting Physician: Saundra Verdugo MD Primary Care Physician: Yasmin WELCH DO PCP Phone Number: [phone] Comment: Discharge Diagnosis: Acute hypokalemia; Acute vomiting [...] Follow up: With: Address: When: Uriel MEADE [facility], [address] [place] [address] [place] [address] Business (1) In 12 days [...] Last Dose: Next Dose: multivitamin, ( 19 ([place])) Oral. Last Dose: Next Dose: naloxone (naloxone [...] develop this cond (more content not included)...Normal [facility] Memorial HospitalLipase Levelon 01-70-2699Froamv Lvl58 unit/LNormal 13-58[facility] HospitalComment on above:Performed By: #### [id number] #### [facility] [address] [place], [place] [address]Vbswmhbkmscsdjq lipaseon 51-41-3811Lstrsj [Catalytic activity/Vol]16 U/LNormal9-82[facility] Comment on above:Order Comment: Venipuncture immediately after or during the administration of Metamizole may lead to falsely low results. Testing should be performed immediately prior to Metamizole dosing.Performed By: #### 3040-3 #### CARI Mark ([id number]) [facility] ([facility]) [address] [place], [place] [address]Rvkxkccvke 79-58-6734Wehwzbek HS6.50 pg/mLLow10.10-27.10 [facility] HospitalComment on above:Result Comment: The 95% CI (Confidence Interval) PPV (Positive Predictive Value) for myocardial infarction in females is 38 pg/mL, in males 51 pg/mL. The results should be used in conjunction with clinical conditions of myocardial infarction. (Access High Sensitivity Troponin I Instructions For Use, [employer], October 2017)Performed By: #### [id number] #### [facility] [address] [place] [address]Xmkmftkp I.cardiac panelon 07-42-5159Zkacudyf I.cardiac panel High sensitivity method<2Ijuelx4-97DfdhovylkePromedica Memorial Hospital Comment on above:Order Comment: Less than [...] using a different testing methodology at [facility] than at other [facility]. Direct result comparisons should only be made within the same method.Performed By: #### 59459-2 #### CARI Mark ([id number]) [facility] ([facility]) [address] [place], [place] [address]S Drug Screenon 08-14-2024U Amph ScrNegativeNormalNEGATIVE [facility] HospitalComment on above:Result Comment: Negative Cutoff: <1000 ng/mLPerformed By: #### [id number] #### [facility] [address] [place], [place] [address]N Shannen ScrNegativeNormalNEGATIVEDunlap Memorial Hospital Comment on above:Result Comment: Negative Cutoff: <200 ng/mLPerformed By: #### [id number] #### [facility] [address] [place] [address], [place] [address]S Benzodia ScrNegativeNormalNEGToledo Hospital Comment on above:Result Comment: Negative Cutoff: <200 ng/mLPerformed By: #### [id number] #### [facility] [address] [place] [address], [place] [address]E Cocaine ScrNegativeNormalNEGToledo Hospital Comment on above:Result Comment: Negative Cutoff: <300 ng/mLPerformed By: #### [id number] #### [facility] [address] [place] [address]Z FentanylNegativeNormalNEGToledo Hospital Comment on above:Result Comment: Negative Cutoff: <5 ng/mL These drug screen results are to be used for medical (i.e., treatment) purposes only. Unconfirmed drug screening results must not be used for non-medical purposes (e.g., employment testing, legal testing).Performed By: #### [id number] #### [facility] [address] [place] [address]X PCP ScrNegativeNormalNEGToledo Hospital Comment on above:Result Comment: Negative Cutoff: <25 ng/mL These drug screen results are to be used for medical (i.e., treatment) purposes only. Unconfirmed drug screening results must not be used for non-medical purposes (e.g., employment testing, legal testing).Performed By: #### [id number] #### [facility] [address] [place] [address]U Cannab ScrPositiveAbnormalNEGATIVEDunlap Memorial Hospital Comment on above:Result Comment: Result verified by repeat analysis, Unconfirmed by alternate method No Confirmation Requested by Physician Called to OB/Camron [place] Negative Cutoff: <50 ng/mLPerformed By: #### [id number] #### [facility] [address], [place] [address]C Opiate ScrPositiveAbnormalNEGATIVEDunlap Memorial Hospital Comment on above:Result Comment: Result verified by repeat analysis, Unconfirmed by alternate method No Confirmation Requested by Physician Called to OB/[place]ron [place] Negative Cutoff: <300 ng/mLPerformed By: #### [id number] #### [facility] [address] [place], [place] [address]O SG Autoon 08-14-2024U SG Automated1.914Vjlhcp2.003-1.040 [facility] HospitalComment on above:Performed By: #### [id number] #### [facility] [address] [place] [address]ED with Cult Rflxon 01-41-4750Kwced (U)YellowNormalYellowDunlap Memorial HospitalComment on above:Result Comment: Microscopic readings are only performed on those samples that meet specific criteria set forth by [facility].Performed By: #### [id number] #### [facility] [address] [place] [address]Rbaxezd Ql (U)3+ mg/dLAbnormalNegMary Rutan HospitalComment on above:Performed By: #### [id number] #### [facility] [address] [place] [address]NI BloodNegativeNormalNegMary Rutan Hospital Comment on above:Performed By: #### [id number] #### [facility] [address] [place] [address]RB ClarityClearNormalClearDunlap Memorial HospitalComment on above:Performed By: #### [id number] #### [facility] [address] [place] [address]JV GlucoseTraceAbnormalNegMary Rutan Hospital Comment on above:Performed By: #### [id number] #### [facility] [address], [place] [address]DL Hyal Qfza1-5Tqluha0-6HqqsdjCorey HospitalComment on above:Performed By: #### [id number] #### [facility] [address] [place], [place] [address]AJ Leuk EstNegativeNormalNegativeDunlap Memorial Hospital Comment on above:Performed By: #### [id number] #### [facility] [address] [place], [place] [address]GC Mucous2+ CD:[id number]enbeigh HospitalComment on above:Performed By: #### [id number] #### [facility] [address], [place] [address]WK NitriteNegativeNormalNegativeDunlap Memorial Hospital Comment on above:Performed By: #### [id number] #### [facility] [address] [place], [place] [address]AC pH6.0Invalid Interpretation Code5.0-9.0[facility] HospitalComment on above:Performed By: #### [id number] #### [facility] [address] [place], [place] [address]UR Protein1+ mg/dLAbnormalNegMary Rutan Hospital Comment on above:Performed By: #### [id number] #### [facility] [address] [place], [place] [address]EZ XFR7-8Zaimhp9-3RqlkfsCorey HospitalComment on above: Performed By: #### [id number] #### [facility] [address] [place], [place] [address]GV Spec Grav1.033Invalid Interpretation Code1.005-1.030[facility] HospitalComment on above:Performed By: #### [id number] #### [facility] [address] [place], [place] [address]VU Squam Epithelial5-8Invalid Interpretation CodeDunlap Memorial HospitalComment on above:Performed By: #### [id number] #### [facility] [address] [place], [place] [address]HY UrobilinogenNegativeNormalNegativeDunlap Memorial HospitalComment on above:Performed By: #### [id number] #### [facility] [address] [place], [place] [address]OR NQK5-5Arkdbe3-4Elakvv [facility] CenterComment on above: Performed By: #### [id number] #### [facility] [address] [place], [place] [address]Acgslqasfcwg (U) [Mass/Vol]NegativeNormalNegativeDunlap Memorial HospitalComment on above:Performed By: #### [id number] #### [facility] [address] [place], [place] [address]UY Spec DescClean CatchNormalDunlap Memorial HospitalComment on above:Performed By: #### [id number] #### [facility] [address] [place], [place] [address]FIDAENLBJJEiuqcjd By: Kasia Graves on 30-08-5495Ayvngzij gravity (U) [Rel density]1.015 8Uuzkpa4.003 - 1.040[facility] Auto SSURINALYSIS Ordered By: SYSTEM SYSTEM on 29-67-1840Jjyqsiavb Ql (U)NegativeNormal Negativemg/dLMERCY HOSPITAL [facility] [place] [facility] Auto SSClarity (U)Clear (08/14/24 8:12 AM)NormalClearFTM UA Auto SSColor (U)Yellow 3 (08/14/24 8:12 AM)NormalYellowMERCY HOSPITAL [facility] [place] [facility]A Auto SSComment on above:Interpretive Data: Microscopic readings are only performed on those samples that meet specific criteria set forth by [facility].Epithelial cells.squamous Auto (Urine sed) [#/Area]5-8 graded/HPFInvalid Interpretation CodeMERCY HOSPITAL [facility] [place] UA Auto SSGlucose Ql (U)Trace mg/dLInvalid Interpretation [...] *NA* (08/14/24 8:12 AM)Invalid Interpretation Code5.0 - 9.0[facility] Auto SSProtein Ql (U)1+ mg/dLInvalid Interpretation CodeNegativemg/dLMERCY HOSPITAL [facility] [place] [facility]A Auto SSRBC Ql (U)0-3 graded/HPFNormal0-3graded/HPFMERCY HOSPITAL [facility] [place] UA Auto SSSpecific gravity (U) [Rel density] 1.033 *NA* (08/14/24 8:12 AM)Invalid Interpretation Code1.005 - 1.030[facility] UA Auto SS Urobilinogen (U) [Mass/Vol]NegativeNormalNegativemg/dLMERCY HOSPITAL [facility] [place] UA Auto SSWBC Auto (Urine sed) [#/Area]0-5 graded/HPFNormal0-5graded/HPFFT UA Auto SSURINALYSIS Ordered By: Bk Garduno on 25-14-0524SM Spec DescClean Catch (08/14/24 8:12 AM)NormalMERCY HOSPITAL [facility] [place] U[facility] Auto SS us OB LIMITED 1+ FETUSESon 33-72-4984TG OB LIMITED 1+ FETUSESInterpreted By: Leon Null and Dervishi Mario STUDY: US OB LIMITED 1+ FETUSES; 08/15/2024 2:14 am INDICATION: Signs/Symptoms:abdominal and chest pain during . COMPARISON: None. ACCESSION NUMBER(S): [id number] ORDERING CLINICIAN: LEÓN SPARROW TECHNIQUE: Multiple images [...] Leon Null 08/15/2024 2:58 AM Dictation workstation: [id number] Carmel Health SystemeGFRon 89-32-3324aLKO466 mL/min/1.73 w9Dabubl>=59Fisher [facility] CenterComment on above:Performed By: #### [id number] #### [facility] [address] [place], [place] [address]ZEY W Auto Differential panel (Bld)on 03-03-2324Pabzlcmgs (Bld) [#/Vol]0.03 10*3/[facility] CenterBasophils/100 WBC (Bld)0.2 %0.0 - 2.0 %[facility] Medical CenterEosinophils (Bld) [#/Vol]0.02 10*3/[facility] CenterEosinophils/100 WBC (Bld)0.1 %0.0 - 6.0 %[facility] Medical CenterErythrocyte distribution width (RBC) [Ratio] 14.6 %High11.5 - 14.5 %[facility]itt[facility] Medical CenterHematocrit (Bld) [Volume fraction]40 %36.0 - 46.0 %[facility] Ritt[facility] Medical CenterHemoglobin (Bld) [Mass/Vol]13.6 g/dL12.0 - 16.0 g/dLUnHenry County HospitalImmapomerene hospital granulocytes (Bld) [#/Vol]0.09 10*3/uLUnHenry County HospitalImcooper county memorial hospital granulocytes/100 WBC (Bld)0.5 %0.0 - 0.9 %[facility] Comment on above:Immature Granulocyte Count (IG) includes promyelocytes, myelocytes and metamyelocytes but does not include bands. Percent differential counts (%) should be interpreted in the context of the absolute cell counts (cells/UL).Interpretation and review of laboratory resultsAbnormalUniSelect Medical Specialty Hospital - Cincinnati NorthLymphocytes (Bld) [#/Vol]1.26 10*3/uLUnHenry County HospitalLymphocytes/100 WBC (Bld)7.6 %13.0 - 44.0 %[facility]H (RBC) [Entitic mass]29.4 pg26.0 - 34.0 pgUnHenry County HospitalMCHC (RBC) [Mass/Vol]34 g/dL32.0 - 36.0 g/dLMercy HospitalV (RBC) [Entitic vol]86 fL80 - 100 fLUniSelect Medical Specialty Hospital - Cincinnati NorthMonocytes (Bld) [#/Vol]0.34 10*3/uLUnHenry County Hospital Monocytes/100 WBC (Bld)2 %2.0 - 10.0 %[facility] Neutrophils (Bld) [#/Vol]14.92 10*3/uLOhioHealth Marion General Hospital Comment on above:Percent differential counts (%) should be interpreted in the context of the absolute cell counts (cells/uL).Neutrophils/100 WBC (Bld)89.6 % 40.0 - 80.0 %[facility] Medical CenterNucleated RBC/100 WBC (Bld) [Ratio]0 %[facility] Medical CenterPlatelets (Bld) [#/Vol]273 10*3/uL [facility] Medical CenterRBC (Bld) [#/Vol]4.63 10*6/uLSumma Health Wadsworth - Rittman Medical CenterWBC (Bld) [#/Vol]16.7 10*3/uLOhioHealth Marion General HospitalUnHenry County HospitalBasophils (Bld) [#/Vol]0.03 x10*3/uL Normal0.00-0.10UnKindred Hospital LimaComment on above: Performed By: #### 74987-0 #### TERE RICH ([id number]) [facility] ([facility]) [address] [place] [address] 40325Yumhfjlim/100 WBC (Bld)0.2 %Normal0.0-2.0UnKindred Hospital LimaComment on above:Performed By: #### 16025-5 #### TERE RICH ([id number]) [facility] ([facility]) [address] [place] [address] 17655Xkhuwftphkk (Bld) [#/Vol]0.02 x10*3/uLNormal0.00-0.70UnKindred Hospital LimaComment on above:Performed By: #### 67101-9 #### TERE RICH ([id number]) [facility] ([facility]) [address] [place] [address] 20273Focxewpuwis/100 WBC (Bld)0.1 %Normal0.0-6.0UnKindred Hospital LimaComment on above:Performed By: #### 99508-2 #### TREE RICH ([id number]) [facility] ([facility]) [address] [place] [address] 97117Gbhiupsmcow distribution width (RBC) [Ratio]14.6 %High11.5-14.5 [facility] HospitalComment on above:Performed By: #### 10327-2 #### TERE RICH ([id number]) [facility] ([facility]) [address] [place] [address] 32280Dvqiudnrmy (Bld) [Volume fraction]40.0 %Xbcien84.0-46.0 [facility] HospitalComment on above:Performed By: #### 32134-9 #### TERE RICH ([id number]) [facility] ([facility]) [address] [place] [address] 40916Eazorckegt (Bld) [Mass/Vol]13.6 g/bSMueqqo67.0-16.0UnKindred Hospital LimaComment on above:Performed By: #### 13765-7 #### TERE RICH (55139) [facility] ([facility]) [address] [place] [address] 46171Wpvcmrfl granulocytes (Bld) [#/Vol]0.09 x10*3/uLNormal0.00-0.70 [facility] HospitalComment on above:Performed By: #### 78034-4 #### TERE RICH ([id number]) [facility] ([facility]) [address] [place] [address] 02939Wanvlfge granulocytes/100 WBC (Bld)0.5 %Normal0.0-0.9UnKindred Hospital LimaComment on above:Result Comment: Immature Granulocyte Count (IG) includes promyelocytes, myelocytes and metamyelocytes but does not include bands. Percent differential counts (%) should be interpreted in the context of the absolute cell counts (cells/UL).Performed By: #### 07685-6 #### TERE RICH ([id number]) [facility] ([facility]) [address] [place] [address] 19226Umsrsunalnd (Bld) [#/Vol]1.26 x10*3/uLNormal1.20-4.80UnKindred Hospital LimaComment on above:Performed By: #### 81391-0 #### TERE RICH ([id number]) [facility] ([facility]) [address] [place] [address] 72234Njhxylbwrpk/100 WBC (Bld)7.6 %Ehnjnx53.0-44.0UnKindred Hospital LimaComment on above:Performed By: #### 29045-6 #### TERE RICH ([id number]) [facility] ([facility]) [facility] [place] [id number] (RBC) [Entitic mass]29.4 mqWqqlmm58.0-34.0[facility] HospitalComment on above:Performed By: #### 58937-5 #### TERE RICH (48781) [facility] ([facility]) [address] [place], [place] [phone] (RBC) [Mass/Vol]34.0 g/fBAesvkc29.0-36.0UnKindred Hospital LimaComment on above:Performed By: #### 53915-8 #### TERE RICH ([id number]) [facility] ([facility]) [address] [place], [place] [address]V (RBC) [Entitic vol]86 yGInbkqw70-786EanjnfwaevKindred Hospital LimaComment on above:Performed By: #### 98758-4 #### TERE RICH (68641) [facility] ([facility]) [address] [place] [address] 30697Eraoynetr (Bld) [#/Vol]0.34 x10*3/uLNormal0.10-1.00UnKindred Hospital LimaComment on above:Performed By: #### 18630-8 #### TERE RICH ([id number]) [facility] ([facility]) [address] [place] [address] 48073Nlwmgrxrj/100 WBC (Bld)2.0 %Normal2.0-10.0UnKindred Hospital LimaComment on above:Performed By: #### 84764-7 #### TERE RICH (73529) [facility] ([facility]) [address] [place] [address] 93468Uwqhhpxlhni (Bld) [#/Vol]14.92 x10*3/uLHigh1.20-7.70UnKindred Hospital LimaComment on above:Result Comment: Percent differential counts (%) should be interpreted in the context of the absolute cell counts (cells/uL).Performed By: #### 87600-2 #### TERE RICH ([id number]) [facility] ([facility]) [address] [place] [address] 64559Dfjinssjggt/100 WBC (Bld)89.6 %Nxenan99.0-80.0UnKindred Hospital LimaComment on above:Performed By: #### 02756-6 #### TERE RCIH ([id number]) [facility] ([facility]) [address] [place] [address] 49177Tnodoqgnt RBC/100 WBC (Bld) [Ratio]0.0 /100 WBCsNormal0.0-0.0 [facility] HospitalComment on above:Performed By: #### 94194-0 #### TERE RICH ([id number]) [facility] ([facility]) [address] [place] [address] 72769Vnbtjsaun (Bld) [#/Vol]273 x10*3/sHXmnytl541-400YhhvowmvweKindred Hospital LimaComment on above:Performed By: #### 86802-6 #### TERE RICH ([id number]) [facility] ([facility]) [address] [place] [address] 08499LVW (Bld) [#/Vol]4.63 x10*6/uLNormal4.00-5.20UnKindred Hospital LimaComment on above:Performed By: #### 91903-5 #### TERE RICH ([id number]) [facility] ([facility]) [address] [place] [address] 00234HPG (Bld) [#/Vol]16.7 x10*3/uLHigh4.4-11.3UnKindred Hospital LimaComment on above:Performed By: #### 47562-5 #### TERE RICH (59155) [facility] ([facility]) [address] [place] [address] 92187Gkssjsfgeqwap metabolic 2000 panelon 99-56-3482Opzlrvo BCP dye [Mass/Vol]4.1 g/dL3.4 - 5.0 g/dLUnHenry County HospitalALP [Catalytic activity/Vol]45 U/L33 - 110 U/[facility] HospitalALT With P-5'-P [Catalytic activity/Vol]15 U/L7 - 45 U/[facility] on above:Patients treated with Sulfasalazine may generate falsely decreased results for ALT.Anion gap [Moles/Vol]14 mmol/L10 - 20 mmol/[facility] HospitalAST With P-5'-P [Catalytic activity/Vol]15 U/L9 - 39 U/[facility] HospitalBilirubin [Mass/Vol]0.4 mg/dL0.0 - 1.2 mg/dLUnHenry County HospitalCalcium [Mass/Vol]9.3 mg/dL8.6 - 10.3 mg/dLUnHenry County HospitalChloride [Moles/Vol]106 mmol/L98 - 107 mmol/[facility] HospitalCO2 [Moles/Vol]19 mmol/LLow21 - 32 mmol/[facility] HospitalCreatinine [Mass/Vol]0.54 mg/dL0.50 - 1.05 mg/dLUnHenry County HospitaleGFR- PINFUniSelect Medical Specialty Hospital - [facility] [place] on above:Calculations of estimated GFR are performed using the 2020 CKD-EPI Study Refit equation without therace variable for the IDMS-Traceable creatinine methods. https://jasn.asnjournals.org/content//ASN.9158855365 Glucose [Mass/Vol]122 mg/aXWzul27 - 99 mg/dLUnHenry County Hospital Interpretation and review of laboratory resultsAbnormalUniSelect Medical Specialty Hospital - Cincinnati NorthPotassium [Moles/Vol]3.5 mmol/L3.5 - 5.3 mmol/[facility] HospitalProtein [Mass/Vol]6.8 g/dL6.4 - 8.2 g/dLUnHenry County HospitalSodium [Moles/Vol]135 mmol/ERrv232 - 145 mmol/[facility] HospitalUrea nitrogen [Mass/Vol]11 mg/dL6 - 23 mg/dLUnHenry County HospitalAlbumin BCP dye [Mass/Vol]4.1 g/dLNormal3.4-5.0UnKindred Hospital LimaComment on above:Performed By: #### 72834-9 #### TERE RICH ([id number]) [facility] ([facility]) [facility] [place], [place] [address]OGG [Catalytic activity/Vol]45 U/HFcaddn43-318EvcikxrpvbKindred Hospital LimaComment on above:Performed By: #### 79777-1 #### TERE RICH (83590) [facility] ([facility]) [address] [place] [address] 25288XMN With P-5'-P [Catalytic activity/Vol]15 U/LNormal7-45 [facility] HospitalComment on above:Result Comment: Patients treated with Sulfasalazine may generate falsely decreased results for ALT.Performed By: #### 57107-5 #### TERE RICH ([id number]) [facility] ([facility]) [address] [place] [address] 61130Wktyg gap [Moles/Vol]14 mmol/GVgcaus00-23MzfeihfdooKindred Hospital LimaComment on above:Performed By: #### 70069-7 #### TERE RICH (68257) [facility] ([facility]) [address] [place] [address] 37932WHF With P-5'-P [Catalytic activity/Vol]15 U/LNormal9-39 [facility] HospitalComment on above:Performed By: #### 71344-1 #### TERE RICH (00601) [facility] ([facility]) [address] [place] [address] 31299Piheedxdl [Mass/Vol]0.4 mg/dLNormal0.0-1.2UnKindred Hospital LimaComment on above:Performed By: #### 47269-8 #### TERE RICH ([id number]) [facility] ([facility]) [address] [place] [address] 86886Ifmhwzs [Mass/Vol]9.3 mg/dLNormal8.6-10.3UnKindred Hospital LimaComment on above:Performed By: #### 36933-8 #### TERE RICH ([id number]) [facility] ([facility]) [address] [place] [address] 45114Aozsisrc [Moles/Vol]106 mmol/IHftdrp59-516EmqqsqnannKindred Hospital LimaComment on above:Performed By: #### 68685-6 #### TERE RICH (23614) [facility] ([facility]) [address] [place] [address] 15308VX3 [Moles/Vol]19 mmol/OLoq23-90AojncdjiesKindred Hospital LimaComment on above:Performed By: #### 48159-8 #### TERE RICH (52553) [facility] ([facility]) [address] [place] [address] 20982Dqldoitztu [Mass/Vol]0.54 mg/dLNormal0.50-1.05UnKindred Hospital LimaComment on above:Performed By: #### 27189-9 #### TERE RICH (98398) [facility] ([facility]) [address] [place] [address] 54475CCB/1.73 sq M.predicted MDRD (S/P/Bld) [Vol rate/Area] mL/min/{1.73_m2}Normal>60UnKindred Hospital LimaComment on above:Result Comment: Calculations of estimated GFR are performed using the 2020 CKD-EPI Study Refit equation without the race variable for the IDMS-Traceable creatinine methods. https://jasn.asnjournals.org/content/early//ASN.3557386024Rlcsbhslk By: #### 89480-5 #### TERE RICH ([id number]) [facility] ([facility]) [address] [place] [address] 11056Egdugzh [Mass/Vol]122 mg/aQXoyr86-61MsuafnnelkKindred Hospital LimaComment on above:Performed By: #### 34190-3 #### TERE RICH ([id number]) [facility] ([facility]) [address] [place] [address] 33181Cshbbagtx [Moles/Vol]3.5 mmol/LNormal3.5-5.3[facility] HospitalComment on above:Performed By: #### 57031-2 #### TERE RICH ([id number]) [facility] ([facility]) [address] [place], [place] [address]Clyuskv [Mass/Vol]6.8 g/dLNormal6.4-8.2UnKindred Hospital LimaComment on above:Performed By: #### 57123-4 #### TERE RICH ([id number]) [facility] ([facility]) [address] [place] [address] 02217Sqhnpo [Moles/Vol]135 mmol/WQlh793-896RomohrdnyhKindred Hospital LimaComment on above:Performed By: #### 74848-1 #### TERE RICH (31751) [facility] ([facility]) [address] [place] [address] 55951Dtxz nitrogen [Mass/Vol]11 mg/dLNormal6-23UnKindred Hospital LimaComment on above:Performed By: #### 38802-2 #### TERE RICH (59966) [facility] ([facility]) [address] [place] [address] 92516ATP 12-LEADon 18-91-4715TFX 12-LEADVentricular Rate 73 Atrial Rate 73 P-R Interval 102 QRS Duration 72 Q-T Interval 380 QTC Calculation(Bazett) 418 P [place] 81 R [place] 95 T [place] 61 QRS Count 12 Q Onset 220 P Onset 169 P Offset 202 T Offset 410 QTC Fredericia 405 Diagnosis Sinus rhythm with marked sinus arrhythmia with short KS Rightward axis Borderline ECG No previous ECGs available See ED provider note for full interpretation and clinical correlation Confirmed by Lynsey Luna ([id number]) on 08/14/2024 2:04:30 PMNormalTrinitas HospitalLipaseon 36-93-3507Czckyr [Catalytic activity/Vol]16 U/L 9 - 82 U/LUnHenry County HospitalLipase [Catalytic activity/Vol]on 40-45-1982Msxkredprpbeaj and review of laboratory resultsNormalUniOakBend Medical CentervelandVenipuncture immediately after or during the administration of Metamizole may lead to falsely low results. Testing should be performed immediately prior to Metamizole dosing.[facility] Medical CenterUnHenry County HospitalMagnesiumon 42-91-3620Ilabkeeyv [Mass/Vol]1.81 mg/dL1.60 - 2.40 mg/dLUnHenry County HospitalMagnesium [Mass/Vol]1.81 mg/dLNormal1.60-2.40UnKindred Hospital Lima Comment on above:Performed By: #### 98127-3 #### TERE RICH ([id number]) [facility] ([facility]) [address] [place] [address] 11117Ikowdoqvl [Mass/Vol]on 77-97-3828Toukdcwfikrqje and review of laboratory resultsNoUniversity Hospitals Elyria Medical CenterNo Panel Informationon 37-47-8482WgdfhsesnmHenry County HospitalTriacylglycerol lipaseon 08-13-2024 Lipase [Catalytic activity/Vol]16 U/LNormal9-82UnKindred Hospital LimaComment on above:Order Comment: Venipuncture immediately after or during the administration of Metamizole may lead to falsely low results. Testing should be performed immediately prior to Metamizole dosing.Performed By: #### 3040-3 #### TERE RICH (56158) [facility] ([facility]) [address] [place] [address] 07875Gnxhpzokks complete W Reflex Culture panel (U)on 08-13-2024 Appearance (U)Ex.TurbidAbnormalClearUnHenry County HospitalBilirubin (U) [Mass/Vol]NegativeNEGATIVE mg/dLUnHenry County HospitalColor (U) YellowLight-Yellow, Yellow, Dark-YellowUnHenry County Hospital Crystals.amorphous Computer assisted (U) [#/Area]2+NONE, 1+, 2+ /HPFUnHenry County HospitalEpithelial cells.squamous Auto (Urine sed) [#/Area]1-9 (SPARSE)Reference range not established. /HPFUnHenry County Hospital Glucose Auto test strip (U) [Mass/Vol]NormalNormal mg/dLUnHenry County HospitalInterpretation and review of laboratory resultsAbnormalUniSelect Medical Specialty Hospital - Cincinnati NorthKetones (U) [Mass/Vol]80 (3+)AbnormalNEGATIVE mg/dL [facility] Medical CenterLeukocyte esterase Auto test strip Ql (U) NegativeNEGATIVEUnHenry County HospitalMucus Auto (Urine sed) [#/Area] 1+Reference range not established. /LPFUniversBloomington Meadows HospitalNitrite Auto test strip Ql (U)NegativeNEGATIVEUnHenry County HospitalpH (U)8.5 [pH]Abnormal5.0, 5.5, 6.0, 6.5, 7.0, 7.5, 8.0UnHenry County Hospital Protein (U) [Mass/Vol]30 (1+)AbnormalNEGATIVE, 10 (TRACE), 20 (TRACE) mg/dL [facility] Medical CenterRBC (U) [#/Vol]NegativeNEGATIVE mg/dLUnHenry County HospitalRB Auto (Urine sed) [#/Area]6-10AbnormalNONE, 1-2, 3-5 /HPFSumma Health Wadsworth - Rittman Medical CenterSpecific gravity (U) [Rel density]1.023 1.005 - 1.035UnHenry County HospitalUrobilinogen (U) [Mass/Vol]Normal Normal mg/dLSumma Health Wadsworth - Rittman Medical CenterWBC Auto (Urine sed) [#/Area]6-10 Abnormal1-5, NONE /Flower HospitalUnHenry County HospitalAppearance (U)Ex.TurbidNormalClearUnKindred Hospital LimaComment on above:Performed By: #### 78049-9 #### TERE RICH (41502) [facility] ([facility]) [address] [place] [address] 65811Lfpdsutej (U) [Mass/Vol]NegativeNormalNEGATIVEUnKindred Hospital LimaComment on above:Performed By: #### 82050-7 #### TERE RICH (78723) [facility] ([facility]) [address] [place] [address] 36370Eyhed (U)YellowNormalLight-Yellow, Yellow, Dark-Yellow [facility] HospitalComment on above:Performed By: #### 86380-0 #### TERE RICH ([id number]) [facility] ([facility]) [address] [place] [address] 84022Zvqslstx.amorphous Computer assisted (U) [#/Area]2+ /HPFNormal NONE, 1+, 2+[facility] HospitalComment on above: Performed By: #### 40732-9 #### TERE RICH ([id number]) [facility] ([facility]) [address] [place] [address] 98558Vzdtwqvwnz cells.squamous Auto (Urine sed) [#/Area]1-9 (SPARSE) NormalReference range not established.[facility] HospitalComment on above:Performed By: #### 42597-1 #### TERE RICH (40059) [facility] ([facility]) [address] [place], [place] [address]Glucose Auto test strip (U) [Mass/Vol]NormalNormalNormal [facility] HospitalComment on above:Performed By: #### 31542-5 #### TERE RICH (45745) [facility] ([facility]) [address] [place] [address] 38737Wrfsjhi (U) [Mass/Vol]80 (3+)AbnormalNEGATIVEUnKindred Hospital LimaComment on above:Performed By: #### 78633-2 #### TERE RICH (48538) [facility] ([facility]) [address] [place] [address] 04653Akfmpdojt esterase Auto test strip Ql (U)NegativeNormalNEGATIVE [facility] HospitalComment on above:Performed By: #### 28641-9 #### TERE RICH ([id number]) [facility] ([facility]) [address] [place], [place] [address]Mucus Auto (Urine sed) [#/Area]1+ /LPFNormalReference range not established.[facility] HospitalComment on above: Performed By: #### 76801-6 #### TERE RICH (66855) [facility] ([facility]) [address] [place] [address] 77511Eqjgmzr Auto test strip Ql (U)NegativeNormalNEGATIVEUnKindred Hospital LimaComment on above:Performed By: #### 25658-6 #### TERE RICH ([id number]) [facility] ([facility]) [address] [place] [address] 49270jB (U)8.5 [pH]Normal5.0, 5.5, 6.0, 6.5, 7.0, 7.5, 8.0UnKindred Hospital LimaComment on above:Performed By: #### 21652-1 #### TREE RICH ([id number]) [facility] ([facility]) [address] [place] [address] 55514Rglmrxa (U) [Mass/Vol]30 (1+)AbnormalNEGATIVE, 10 (TRACE), 20 (TRACE)[facility] HospitalComment on above:Performed By: #### 40241-0 #### TERE RICH ([id number]) [facility] ([facility]) [address] [place] [address] 60702XQZ (U) [#/Vol]NegativeNormalNEGATIVEUnKindred Hospital LimaComment on above:Performed By: #### 71141-3 #### TERE RICH ([id number]) [facility] ([facility]) [address] [place] [address] 39249JPU Auto (Urine sed) [#/Area]6-10AbnormalNONE, 1-2, 3-5 [facility] HospitalComment on above:Performed By: #### 03662-6 #### TERE RICH (85004) [facility] ([facility]) [address] [place] [address] 15878Zrlzlduo gravity (U) [Rel density]1.052Ledbnp2.005-1.035 [facility] HospitalComment on above:Performed By: #### 55286-6 #### TERE RICH (30671) [facility] ([facility]) [address] [place] [address] 57055Yicjljazespb (U) [Mass/Vol]NormalNormalMarietta Memorial HospitalComment on above:Performed By: #### [id number] #### TERE RICH ([id number]) [facility] ([facility]) [address] [place], [place] [address]WTH Auto (Urine sed) [#/Area]7-92Gixoqdgu4-2, [facility] CenterComment on above:Performed By: #### [id number] #### TERE SELENEKAITLYNN ([id number]) [facility] ([facility]) [address] [place], [place] [address]GM CHEST 1 VIEWon [id number] CHEST 1 VIEWInterpreted By: Michelle Min, STUDY: XR CHEST 1 VIEW; 08/13/2024 10:38 am INDICATION: Signs/Symptoms:chest pressure after vomiting. COMPARISON: None. ACCESSION NUMBER(S): [id number] ORDERING CLINICIAN: MILAN LERNER FINDINGS: AP radiograph of the chest was provided. CARDIOMEDIASTINAL SILHOUETTE: Cardiomediastinal silhouette is normal in size and configuration. LUNGS: No consolidation, pulmonary edema, pleural effusion, or pneumothorax. ABDOMEN: No remarkable upper abdominal findings. BONES: No acute osseous changes. IMPRESSION: No evidence of acute cardiopulmonary process. Signed by: Michelle Min 08/13/2024 10:40 AM Dictation workstation: [id number] Memorial HospitalXR Chest Single viewon [id number] evidence of acute cardiopulmonary process. Signed by: Michelle Min 08/13/2024 10:40 AM Dictation workstation: [id number] By: Michelle Min, STUDY: XR CHEST 1 VIEW; 08/13/2024 10:38 am INDICATION: Signs/Symptoms:chest pressure after vomiting. COMPARISON: None. ACCESSION NUMBER(S): [id number] ORDERING CLINICIAN: MILAN LERNER FINDINGS: AP radiograph [...] pressure after vomiting. COMPARISON: None. ACCESSION NUMBER(S): [id number] ORDERING CLINICIAN: MILAN LERNER FINDINGS: AP radiograph of the chest was provided. CARDIOMEDIASTINAL SILHOUETTE: Cardiomediastinal silhouette is normal in size and configuration. LUNGS: No consolidation, pulmonary edema, pleural effusion, or pneumothorax. ABDOMEN: No remarkable upper abdominal findings. BONES: No acute osseous changes. IMPRESSION: No evidence of acute cardiopulmonary process. Signed by: Michelle Min 08/13/2024 10:40 AM Dictation workstation: [id number] [facility] Work Phone: Radiology Study observation (narrative)[facility] Work Phone: XR Chest Single viewOrdered By: Michelle Min on [id number] County Hospital Work Phone: Urinalysis macro (dipstick) panel [...] - 1.03NOMS Healthcare Urobilinogen, UA0.20.2 - 12 mg/dLAlvin J. Siteman Cancer Center HealthcareBOX TESTon [id number] TEST SENT OUTUNITYProgress West HospitalEttxfstmuiKMT5SYMEOCAXG HealthcareBOX2 07/10/24[facility] CLINISYStarr Regional Medical CenterUS OB TRANSVAGINALon [id number] OB TRANSVAGINALEXAM: US OB TRANSVAGINAL HISTORY: Follow [...] II, MD, PHD at 09-Jul-2024 08:43:53 AM [facility] TeleradiologyNormalNot AvailableComment on above:Order Comment: US OB VIABILITY PLEASE PERFORM TRANSVAGINAL ULTRASOUND IF INDICATED No LMP recorded.US OB TRANSVAGINALon [id number] OB TRANSVAGINALEXAM: US OB TRANSVAGINAL HISTORY: Bleeding [...] II, MD, PHD at 01-Jul-2024 07:14:28 PM [facility] TeleradiologyNormalNot AvailableComment on above:Order Comment: US OB VIABILITY PLEASE PERFORM TRANSVAGINAL ULTRASOUND IF INDICATED No LMP recorded (exact date).HCG ( test) Ql (U)on 06-24-2024 Interpretation and review of laboratory resultsAbnormalNOMS HealthcarePreg Test, UrPositiveNegativeNOMS HealthcareNOMS HealthcareUrinalysis macro (dipstick) panel (U)on 03-39-7279Vyfxqohke, UANegativeNegative - 4(70) +++ mg/dLNOMS HealthcareBlood, UAPositiveNegative [...] HealthcareUrobilinogen, UA0.20.2 - 12 mg/dLNOMS HealthcareNOMS HealthcareBMPon 38-85-0163Orwbg gap [Moles/Vol]8 mmol/LNormal6-16 [facility] HospitalComment on above:Performed By: #### [id number] #### [facility] [address], [place] [address]Arxqskm [Mass/Vol]8.1 mg/dLLow8.9-11.1FCorey HospitalComment on above:Performed By: #### [id number] #### [facility] [address], [place] [address]Fhqugnwf [Moles/Vol]106 mmol/ZWfzmpb264-648EufwcpDunlap Memorial HospitalComment on above:Performed By: #### [id number] #### [facility] [address], [place] [address]FB1 [Moles/Vol]27 mmol/OMfktns45-44QssplnDunlap Memorial Hospital Comment on above:Performed By: #### [id number] #### [facility] [address], [place] [address]Pszpheozbh [Mass/Vol]0.6 mg/dLNormal0.5-1.3FCorey HospitalComment on above:Performed By: #### [id number] #### [facility] [address], [place] [address]Hscqxbh [Mass/Vol]93 mg/sKRpbqeq19-290FgiaqoDunlap Memorial HospitalComment on above:Performed By: #### [id number] #### [facility] [address], [place] [address]Fcudmqoaa [Moles/Vol]3.9 mmol/LNormal3.5-5.3FCorey HospitalComment on above:Performed By: #### [id number] #### [facility] [address] [place] [address] 19629Zukieo [Moles/Vol]137 mmol/NRxvjfh022-096LtpieqDunlap Memorial HospitalComment on above:Performed By: #### [id number] #### [facility] [address] [place] [address] 275[address]Yoxh nitrogen [Mass/Vol]7 mg/dLNormal5-21[facility] HospitalComment on above:Performed By: #### [id number] #### [facility] [address] [place] [address] 56838Egrx nitrogen/Creatinine [Mass ratio]12 No ZycwyXwlwgk15-41 [facility] HospitalComment on above:Performed By: #### [id number] #### [facility] [address] [place] [address] 80695RSV w/ Auto Diffon 27-78-3430Ypilkqlxr/100 WBC (Bld)0.3 %Normal 0.0-2.0[facility] HospitalComment on above:Performed By: #### [id number] #### [facility] [address] [place] [address]Cztptlwvm/Leukocytes Auto (Bld) [Pure # fraction]0.0 E9/LNormal 0.0-0.2FCorey HospitalComment on above:Performed By: #### [id number] #### [facility] [address] [place] [address] 20374Llixmtfefbg (Bld) [#/Vol]0.0 E9/LNormal0.0-0.5FCorey HospitalComment on above:Performed By: #### [id number] #### [facility] [address] [place] [address] 19181Qytuzcjgskh/100 WBC (Bld)0.5 %Normal0.0-8.0[facility] HospitalComment on above:Performed By: #### [id number] #### [facility] [address] [place] [address] 44557Csiqgykoeqq distribution width (RBC) [Ratio]14.7 %High10.9-14.2 [facility] HospitalComment on above:Performed By: #### [id number] #### [facility] [address] [place] [address] 86400Upcnlkzqmz (Bld) [Volume fraction]32.2 %Low34.0-46.0[facility] HospitalComment on above:Performed By: #### [id number] #### [facility] [address] [place] [address] 75078Uuyzxzqgql (Bld) [Mass/Vol]11.1 g/dLLow12.0-16.0[facility] HospitalComment on above:Performed By: #### [id number] #### [facility] [address] [place] [address] 17648Txcrmvzjrio (Bld) [#/Vol]1.8 E9/LNormal1.0-4.0[facility] HospitalComment on above:Performed By: #### [id number] #### [facility] [address] [place] [address] 38570Rbuvrxvoazg/100 WBC (Bld)18.1 %Wudvbh61.0-50.0[facility] HospitalComment on above:Performed By: #### [id number] #### [facility] [address] [place] [address] 62944RFV (RBC) [Entitic mass]30.4 koDtmwza15.0-34.0[facility] HospitalComment on above:Performed By: #### [id number] #### [facility] [address] [place] [address] 25416FBCH (RBC) [Mass/Vol]34.5 g/aBGdkmqr12.4-36.0[facility] HospitalComment on above:Performed By: #### [id number] #### [facility] [address], [place] [address]NDP (RBC) [Entitic vol]88.1 pRZsxmrk65.0-100.0[facility] HospitalComment on above:Performed By: #### [id number] #### [facility] [address] [place] [address] 26975Yoehvjtca (Bld) [#/Vol]0.7 E9/LNormal0.2-1.0[facility] HospitalComment on above:Performed By: #### [id number] #### [facility] [address] [place] [address] 73092Envxsorsoii (Bld) [#/Vol]7.2 E9/LNormal2.0-7.5FCorey HospitalComment on above:Performed By: #### [id number] #### [facility] [address] [place] [address] 48229Addujptdqmb/100 WBC (Bld)73.7 %Atuprn66.0-75.0[facility] HospitalComment on above:Performed By: #### [id number] #### [facility] [address] [place] [address] 40658Agxjowkd mean volume (Bld) [Entitic vol]8.0 fLNormal6.4-10.8 [facility] HospitalComment on above:Performed By: #### [id number] #### [facility] [address] [place] [address] 20130Ntbonukpj (Bld) [#/Vol]203.0 E9/KTekuhp676.0-500.0[facility] HospitalComment on above:Performed By: #### [id number] #### [facility] [address] [place] [address] 71354QYS (Bld) [#/Vol]3.7 E12/LLow4.3-5.9[facility] Comment on above:Performed By: #### [id number] #### [facility] [address] [place] [address] 47278WVH corrected for nucl RBC Auto (Bld) [#/Vol]9.7 E9/LNormal 4.0-11.0[facility] Hospitaler [facility] CenterComment on above:Performed By: #### [id number] #### [facility] [address] [place], [place] [address]DFAFBKQPGKejdium By: SYSTEM SYSTEM on 09-15-2049Tnisb gap [Moles/Vol]8 mmol/LNormal6 - 16 mEq/LRemisol ChemCalcium [Mass/Vol]8.1 mg/dLLow 8.9 - 11.1 mg/dLRemisol ChemChloride [Moles/Vol]106 mmol/JWpljsm033 - 111 mmol/L Remisol ChemCO2 [Moles/Vol]27 mmol/GDkuwis16 - 31 mmol/LRemisol ChemCreatinine [Mass/Vol]0.6 mg/dLNormal0.5 - 1.3 mg/dLRemisol FfusaUBG489 mL/min/1.73 u6Xwdcct >=59mL/min/1.73 p7Fmvcrvk ChemGlucose [Mass/Vol]93 mg/hGWmvrjq06 - 199 mg/dL Remisol ChemPotassium [Moles/Vol]3.9 mmol/LNormal3.5 - 5.3 mmol/LRemisol Chem Sodium [Moles/Vol]137 mmol/KHytqna192 - 145 mmol/LRemisol ChemUrea nitrogen [Mass/Vol]7 mg/dLNormal5 - 21 mg/dLRemisol ChemUrea nitrogen/Creatinine [Mass ratio]12 mg/niPnrwud42 - 20Remisol ChemDischarge Note-Nursingon 06-22-2024 Discharge Note-NursingDischarge [...] care physician. This Is Your Medications List [facility] Prescription (Boost/Ensure) famotidine (famotidine 20 mg Tab) metoclopramide (Reglan 5 mg Tab) multivitamin, ( 19 ([place])) naloxone (naloxone 4 mg/0.1 mL nasal spray) [...] days Comments: Call for followup appointment Where: [address] , [place] [address]- Business (1) Follow Up with Carolyne Collazo When: Within 7 to 10 days Comments: Call for followup appointment Where: [address] [place] [address]- Business (1) Medications What How Much When Why Instructions Next Dose New famotidine (famotidine 20 mg Tab) 1 Tablets By Mouth 2 times a day Pickup at [facility] #[id number] 06/22 @ 9 pm New metoclopramide (Reglan 5 mg Tab) 1 Tablets By Mouth 4 times a day Pickup at [facility] #[id number] 06/22 before lunch New Misc Prescription (Boost/ Ensure) 0 Twice a day (before meals) Hyperemesis gravidarum 8oz BID x2-4 weeks. Disp #24 (twenty-four) Printed Prescription 06/22 @ 5 pm New naloxone (naloxone 4 mg/ 0.1 mL nasal spray) 4 Milligram Nasal Inhalation As Directed for suspected overdose symptoms Pickup at [facility] 1985 As directed New ondansetron (Zofran ODT 4 mg Tab-Dis) 1 Tablets By Mouth Every 6 hours [email or web address] As needed for nausea/vomiting New oxycodone (oxyCODONE 5 mg Cap) 1 Capsules By Mouth Every 12 hours as needed for for pain Hyperemesis gravidarum Intractable vomiting Pickup at [facility] 1985 As needed for pain New sucralfate (Carafate 1 g/ 10 mL Susp-Oral) 10 Milliliter By Mouth Four times a day (before meals and at bedtime) Pickup at [facility] #[id number] 06/22 before lunch Changed pantoprazole (Protonix 40 mg Tab-DR) 1 Tablets By Mouth Every day [id number] 06/23 @ 9 am Changed polyethylene glycol 3350 (MiraLax 3350 Oral Pwdr for Recon 249 gram) 17 Gram By Mouth Everyday 06/23 @ 9 am Unchanged multivitamin, ( 19 ([place])) See instructions Oral 06/23 @ 9 am Unchanged omega-3 polyunsaturated fatty acids (Fish Oil) 500 Milligram By Mouth Every day 06/23 @ 9 am [id number] [address] [place], [place] [id number] [phone] [facility]: [address] [place], [place] [id number] [phone] What How Much When Comments Stop Taking alprazolam (Xanax 0.5 mg Tab) 1 Tablets By Mouth 3 times a day as needed for for anxiety Stop Taking alprazolam (Xanax) 0.5 Milligram By Mouth 2 times a day Stop Taking cyclophosphamide (cyclophos (more content not included)...Normal [facility] HospitalHEMATOLOGYOrdered By: SYSTEM SYSTEM on 06-22-2024 Basophils/100 WBC [...] E9/LNormal1.0 - 4.0 E9/LRemisol HemeLymphocytes/100 WBC (Bld)18.1 %Bbezbb51.0 - 50.0 %Remisol HemeMCH (RBC) [Entitic mass]30.4 hdOjoljn70.0 - 34.0 pgRemisol HemeMCHC (RBC) [Mass/Vol]34.5 g/dDCoaqgl57.4 - 36.0 gm/dLRemisol HemeMCV (RBC) [Entitic vol]88.1 kGTdfujz24.0 - 100.0 fLRemisol HemeMonocytes (Bld) [#/Vol]0.7 E9/LNormal0.2 - 1.0 E9/LRemisol HemeMonocytes/100 WBC (Bld)7.4 %Normal4.0 - 14.0 %Remisol HemeNeutrophils (Bld) [#/Vol]7.2 E9/LNormal2.0 - 7.5 E9/LRemisol HemeNeutrophils/100 WBC (Bld)73.7 % Vhkiqp81.0 - 75.0 %Remisol HemePlatelet mean volume (Bld) [Entitic vol]8.0 fL Normal6.4 - 10.8 fLRemisol HemePlatelets (Bld) [#/Vol]203.0 E9/VJehyqd384.0 - 500.0 E9/LRemisol HemeRBC (Bld) [#/Vol]3.7 E12/LLow4.3 - 5.9 E12/LRemisol Heme WBC corrected for nucl RBC Auto (Bld) [#/Vol]9.7 E9/LNormal4.0 - 11.0 E9/L Remisol HemeRespiratory Panel by PCRon 38-85-3934Oopkyewpiw DNA REEMA+non-probe Ql (Nph)Not detectedNormalDunlap Memorial HospitalComment on above:Result Comment: Testing was performed using nucleic acid amplification including Influenza A, Influenza A H1, Influenza A H3, Influenza B, RSV A, RSV B, Adenovirus, Human Metapneumovirus, Parainfluenza 1,2,3, and 4, Rhinovirus, Bordetella parapertussis/bronchiseptica, Bordetella holmesii, and Bordetella pertussis.Performed By: #### [id number] #### [facility] [address], [place] [address]Q. holmesii DNA REEMA+probe Ql (Unsp spec)Not detectedNormal [facility] HospitalComment on above:Performed By: #### [id number] #### [facility] [address], [place] [address]K. parapertussis DNA REEMA+probe Ql (Upper resp)Not detected NormalNot [facility] Bucyrus HospitalComment on above:Performed By: #### [id number] #### [facility] [address], [place] [address]CBZMVHAZPQ PERTUSSIS DNA:PRTHR:PT:XXX:ORD:Not detectedNormalNot DetectedDunlap Memorial HospitalComment on above:Performed By: #### [id number] #### [facility] [address], [place] [address]KXCBJ H1 RNA REEMA+non-probe Ql (Nph)Not detectedNormalDunlap Memorial HospitalComment on above:Performed By: #### [id number] #### [facility] [address], [place] [address]WYBEY H3 RNA REEMA+non-probe Ql (Nph)Not detectedNormalDunlap Memorial HospitalComment on above:Performed By: #### [id number] #### [facility] [address], [place] [address]LHMNX RNA REEMA+non-probe Ql (Nph)Not detectedNormalDunlap Memorial HospitalComment on above:Performed By: #### [id number] #### [facility] [address], [place] [address]UNKPL RNA REEMA+non-probe Ql (Nph)Not detectedNormOhio State University Wexner Medical CenterComment on above:Performed By: #### [id number] #### [facility] [address], [place] [address]Mlsvk MetapneumovirusNot detectedNoNationwide Children's HospitalComment on above:Result Comment: This test result should be correlated with clinical presentations and medical history by a healthcare provider to determine its clinical significance.Performed By: #### [id number] #### [facility] [address], [place] [address]Hjfebmczxuwns virus 1 RNA REEMA+non-probe Ql (Nph)Not detected [facility] HospitalComment on above:Performed By: #### [id number] #### [facility] [address], [place] [address]Loqawqobarcmk virus 2 RNA REEMA+non-probe Ql (Nph)Not detected NormalDunlap Memorial HospitalComment on above:Performed By: #### [id number] #### [facility] [address], [place] [address]Igmtfbxoqvorg virus 3 RNA REEMA+non-probe Ql (Nph)Not detected NormalDunlap Memorial HospitalComment on above:Performed By: #### [id number] #### [facility] [address], [place] [address]Lhyxvzmnkwqjm virus 4 RNA REEMA+non-probe Ql (Nph)Not detected [facility] HospitalComment on above:Performed By: #### [id number] #### [facility] [address] [place] [address] 367[address]Qixn Panel Intrl QCPassNormalDunlap Memorial HospitalComment on above:Performed By: #### [id number] #### [facility] [address] [place] [address]82[address]Cxqiuchske+Enterovirus RNA REEMA+non-probe Ql (Nph)Detected AbnormalDunlap Memorial HospitalComment on above:Performed By: #### [id number] #### [facility] [address] [place] [address] 48936RRP A RNA REEMA+probe Ql (Nph)Not detectedNormalDunlap Memorial HospitalComment on above:Performed By: #### [id number] #### [facility] [address] [place] [address]14[address]DOL B RNA REEMA+probe Ql (Nph)Not detectedNormOhio State University Wexner Medical CenterComment on above:Performed By: #### [id number] #### [facility] [address], [place] [address]kQBPcv 32-88-0263pYIE722 mL/min/1.73 u0Vfknzm>=59[facility] HospitalComment on above:Performed By: #### [id number] #### [facility] [address] [place] [address]54[address]ZVEcx 84-64-9136Bhrpo gap [Moles/Vol]9 mmol/LNormal6-16[facility] HospitalComment on above:Performed By: #### [id number] #### [facility] [address], [place] [address]Mdejxco [Mass/Vol]8.3 mg/dLLow8.9-11.1FCorey HospitalComment on above:Performed By: #### [id number] #### [facility] [address], [place] [address]Tyzhddog [Moles/Vol]107 mmol/WUocxnl061-643VudfiwDunlap Memorial HospitalComment on above:Performed By: #### [id number] #### [facility] [address], [place] [address]XZ3 [Moles/Vol]24 mmol/QUzknsm81-12LjkcunDunlap Memorial Hospital Comment on above:Performed By: #### [id number] #### [facility] [address], [place] [address]Yaohpnyyjs [Mass/Vol]0.6 mg/dLNormal0.5-1.3FCorey HospitalComment on above:Performed By: #### [id number] #### [facility] [address], [place] [address]Zctgjla [Mass/Vol]95 mg/nFWiagjz64-720LigcnqDunlap Memorial HospitalComment on above:Performed By: #### [id number] #### [facility] [address], [place] [address]Plklvbxve [Moles/Vol]3.6 mmol/LNormal3.5-5.3FCorey HospitalComment on above:Performed By: #### [id number] #### [facility] [address], [place] [address]Ptojum [Moles/Vol]136 mmol/PHgsayv675-325LtcnzjDunlap Memorial HospitalComment on above:Performed By: #### [id number] #### [facility] [address], [place] [address]Xamv nitrogen [Mass/Vol]9 mg/dLNormal5-21[facility] HospitalComment on above:Performed By: #### [id number] #### [facility] [address], [place] [address]Haij nitrogen/Creatinine [Mass ratio]15 No VdsqcVziuuv27-52 [facility] HospitalComment on above:Performed By: #### [id number] #### [facility] [address], [place] [address]YZL w/ Auto Diffon 73-21-5545Xzcmwzytf/100 WBC (Bld)0.2 %Normal 0.0-2.0[facility] HospitalComment on above:Performed By: #### [id number] #### [facility] [address], [place] [address]Wgvdxunqs/Leukocytes Auto (Bld) [Pure # fraction]0.0 E9/LNormal 0.0-0.2FCorey HospitalComment on above:Performed By: #### [id number] #### [facility] [address], [place] [address]Tgpnzrksscl (Bld) [#/Vol]0.1 E9/LNormal0.0-0.5FCorey HospitalComment on above:Performed By: #### [id number] #### [facility] [address], [place] [address]Turoindyeqq/100 WBC (Bld)0.5 %Normal0.0-8.0[facility] HospitalComment on above:Performed By: #### [id number] #### [facility] [address], [place] [address]Oztixrjatgy distribution width (RBC) [Ratio]14.3 %High10.9-14.2 [facility] HospitalComment on above:Performed By: #### [id number] #### [facility] [address], [place] [address]Yngvqwzqyk (Bld) [Volume fraction]35.5 %Avhrwj57.0-46.0[facility] HospitalComment on above:Performed By: #### [id number] #### [facility] [address] [place] [address]Ftixhcqntn (Bld) [Mass/Vol]12.1 g/xPKyosbd62.0-16.0[facility] HospitalComment on above:Performed By: #### [id number] #### [facility] [address] [place] [address]Fwvlhbdzczw (Bld) [#/Vol]1.2 E9/LNormal1.0-4.0[facility] HospitalComment on above:Performed By: #### [id number] #### [facility] [address] [place] [address]Geanwapehnl/100 WBC (Bld)8.0 %Low14.0-50.0[facility] HospitalComment on above:Performed By: #### [id number] #### [facility] [address] [place] [address] 11558SCJ (RBC) [Entitic mass]29.9 yjRlstah03.0-34.0[facility] HospitalComment on above:Performed By: #### [id number] #### [facility] [address] [place] [address] 245[address]CUZO (RBC) [Mass/Vol]34.2 g/ePRvvreb43.4-36.0[facility] HospitalComment on above:Performed By: #### [id number] #### [facility] [address] [place] [address] 90674SRA (RBC) [Entitic vol]87.5 iLFutecm30.0-100.0[facility] HospitalComment on above:Performed By: #### [id number] #### [facility] [address] [place] [address]Wjjdztwdu (Bld) [#/Vol]0.9 E9/LNormal0.2-1.0[facility] HospitalComment on above:Performed By: #### [id number] #### [facility] [address] [place] [address] 199[address]Yurtjkepeja (Bld) [#/Vol]12.4 E9/LHigh2.0-7.5FCorey HospitalComment on above:Performed By: #### [id number] #### [facility] [address] [place] [address]29[address]Prptzkjzngn/100 WBC (Bld)84.9 %High36.0-75.0[facility] HospitalComment on above:Performed By: #### [id number] #### [facility] [address] [place] [address]Oubkijkb mean volume (Bld) [Entitic vol]8.1 fLNormal6.4-10.8 [facility] HospitalComment on above:Performed By: #### [id number] #### [facility] [address] [place] [address]Tlnktyevo (Bld) [#/Vol]221.0 E9/ZCigbae295.0-500.0[facility] HospitalComment on above:Performed By: #### [id number] #### [facility] [address] [place] [address] 05131VRX (Bld) [#/Vol]4.1 E12/LLow4.3-5.9[facility] Comment on above:Performed By: #### [id number] #### [facility] [address] [place] [address]WWD corrected for nucl RBC Auto (Bld) [#/Vol]14.6 E9/LHigh 4.0-11.0[facility] HospitalComment on above:Result Comment: Peripheral smear review performed.Performed By: #### [id number] #### [facility] [address] [place] [address]PCMEEIXDLLczmggv By: SYSTEM SYSTEM on 08-66-6151Iguts gap [Moles/Vol]9 mmol/LNormal6 - 16 mEq/LRemisol ChemCalcium [Mass/Vol]8.3 mg/dLLow 8.9 - 11.1 mg/dLRemisol ChemChloride [Moles/Vol]107 mmol/LCzsklz782 - 111 mmol/L Remisol ChemCO2 [Moles/Vol]24 mmol/VDqwucc53 - 31 mmol/LRemisol ChemCreatinine [Mass/Vol]0.6 mg/dLNormal0.5 - 1.3 mg/dLRemisol DesgpWRO102 mL/min/1.73 g9Fxfmkp >=59mL/min/1.73 o1Ohcttdm ChemGlucose [Mass/Vol]95 mg/nNDxmptc82 - 199 mg/dL Remisol ChemLipase [Catalytic activity/Vol]25 U/TGlcion72 - 58 unit/LRemisol ChemPotassium [Moles/Vol]3.6 mmol/LNormal3.5 - 5.3 mmol/LRemisol ChemSodium [Moles/Vol]136 mmol/YIzhyup797 - 145 mmol/LRemisol ChemUrea nitrogen [Mass/Vol]9 mg/dLNormal5 - 21 mg/dLRemisol ChemUrea nitrogen/Creatinine [Mass ratio]15 mg/mwRohtgv72 - 20Remisol ChemEstradiolon 67-42-4737L5 [Mass/Vol]1082.0 pg/mL Invalid Interpretation [facility] SystemComment on above:Result Comment: Adult Female Range Follicular phase 12.5 - 166.0 Ovulation phase 85.8 - 498.0 Luteal phase 43.8 - 211.0 Postmenopausal <6.0 - 54.7 1st trimester 215.0 - >4300.0 Carolin ECLIA methodology Performed at: [facility] [address] [id number] PhD Randa OchoaPerformed By: #### [id number] #### [facility] [address] [place] [address]VEDPGSDONQMqbhtms By: SYSTEM SYSTEM on 25-66-8642Tucqsmdeo/100 WBC (Bld)0.2 %Normal0.0 - 2.0 %Remisol HemeBasophils/Leukocytes Auto (Bld) [Pure # fraction]0.0 E9/LNormal0.0 - 0.2 E9/LRemisol HemeEosinophils (Bld) [#/Vol]0.1 E9/LNormal0.0 - 0.5 E9/LRemisol HemeEosinophils/100 WBC (Bld)0.5 %Normal0.0 - 8.0 %Remisol HemeErythrocyte distribution width (RBC) [Ratio]14.3 %High10.9 - 14.2 %Remisol HemeHematocrit (Bld) [Volume fraction]35.5 %Njahvt85.0 - 46.0 % Remisol HemeHemoglobin (Bld) [Mass/Vol]12.1 g/qVUfupem32.0 - 16.0 gm/dLRemisol HemeLymphocytes (Bld) [#/Vol]1.2 E9/LNormal1.0 - 4.0 E9/LRemisol Heme Lymphocytes/100 WBC (Bld)8.0 %Low14.0 - 50.0 %Remisol HemeMCH (RBC) [Entitic mass]29.9 dfCfudwq98.0 - 34.0 pgRemisol HemeMCHC (RBC) [Mass/Vol]34.2 g/dLNormal 31.4 - 36.0 gm/dLRemisol HemeMCV (RBC) [Entitic vol]87.5 kNYgqsvx57.0 - 100.0 fL Remisol HemeMonocytes (Bld) [#/Vol]0.9 E9/LNormal0.2 - 1.0 E9/LRemisol Heme Monocytes/100 WBC (Bld)6.4 %Normal4.0 - 14.0 %Remisol HemeNeutrophils (Bld) [#/Vol]12.4 E9/LHigh2.0 - 7.5 E9/LRemisol HemeNeutrophils/100 WBC (Bld)84.9 % High36.0 - 75.0 %Remisol HemePlatelet mean volume (Bld) [Entitic vol]8.1 fL Normal6.4 - 10.8 fLRemisol HemePlatelets (Bld) [#/Vol]221.0 E9/VXyvdej415.0 - 500.0 E9/LRemisol HemeRBC (Bld) [#/Vol]4.1 E12/LLow4.3 - 5.9 E12/LRemisol Heme WBC corrected for nucl RBC Auto (Bld) [#/Vol]14.6 E9/LHigh4.0 - 11.0 E9/LRemisol HemeComment on above:Result Comment: Peripheral smear review performed.Lipase Levelon 18-25-3001Fngnha [Catalytic activity/Vol]25 U/VJlizic66-41LdqjpaDunlap Memorial HospitalComment on above:Performed By: #### [id number] #### [facility] [address], [place] [address]hKRJhg 87-00-2138iLMC113 mL/min/1.73 a4Nnntlb>=59[facility] HospitalComment on above:Performed By: #### [id number] #### [facility] [address], [place] [address]LVPdm 65-12-0721Vmqjb gap [Moles/Vol]10 mmol/LNormal6-16[facility] Memorial HospitalComment on above:Performed By: #### [id number] #### [facility] [address], [place] [address]Ckexwyu [Mass/Vol]8.5 mg/dLLow8.9-11.1FCorey HospitalComment on above:Performed By: #### [id number] #### [facility] [address], [place] [address]Fdwgcoym [Moles/Vol]107 mmol/XArujhz708-051XeoianDunlap Memorial HospitalComment on above:Performed By: #### [id number] #### [facility] [address], [place] [address]DA2 [Moles/Vol]23 mmol/SIoxkch00-26ZgcwqsDunlap Memorial Hospital Comment on above:Performed By: #### [id number] #### [facility] [address], [place] [address]Jrzqovqszd [Mass/Vol]0.6 mg/dLNormal0.5-1.3FCorey HospitalComment on above:Performed By: #### [id number] #### [facility] [address], [place] [address]Jwueufw [Mass/Vol]106 mg/sUNbkeoe95-763JxadvwDunlap Memorial HospitalComment on above:Performed By: #### [id number] #### [facility] [address], [place] [address]Gehherxdi [Moles/Vol]3.5 mmol/LNormal3.5-5.3FCorey HospitalComment on above:Performed By: #### [id number] #### [facility] [address], [place] [address]Ziakbb [Moles/Vol]136 mmol/TPxlfwg769-844MrvbjjDunlap Memorial HospitalComment on above:Performed By: #### [id number] #### [facility] [address], [place] [address]Ikjb nitrogen [Mass/Vol]10 mg/dLNormal5-21[facility] Memorial HospitalComment on above:Performed By: #### [id number] #### [facility] [address], [place] [address]Wcdf nitrogen/Creatinine [Mass ratio]17 No NaeaoNuhbca47-49 [facility] HospitalComment on above:Performed By: #### [id number] #### [facility] [address], [place] [address]TnWU Quanton 17-94-5267JTH.beta subunit Rm37700 m[IU]/mLHigh1-3 [facility] HospitalComment on above:Result Comment: 'F NON < 1 - 3' ' 0.2 - 1 WEEK = 5 TO 50' ' 1 - 2 WEEKS = 50 - 500' ' 2 - 3 WEEKS = 100 - 5000' ' 3 - 4 WEEKS = 500 - 24088' ' 4 - 5 WEEKS = 1000 - 21592' ' 5 - 6 WEEKS = 32150 - 062825' ' 6 - 8 WEEKS = 64588 - 259340' ' 8 - 12 WEEKS = 39488 - 367734'Performed By: #### [id number] #### [facility] [address], [place] [address]GNM w/Indiceson 56-27-5913Zegpuqfzvcv distribution width (RBC) [Ratio]14.6 %High10.9-14.2FCorey HospitalComment on above:Performed By: #### [id number] #### [facility] [address] [place] [address]Mvsstzbgrd (Bld) [Volume fraction]36.5 %Cixiap54.0-46.0[facility] HospitalComment on above:Performed By: #### [id number] #### [facility] [address] [place] [address]Swprdbxrdj (Bld) [Mass/Vol]12.5 g/dVSubiwx67.0-16.0[facility] HospitalComment on above:Performed By: #### [id number] #### [facility] [address] [place] [address] 77118WOG (RBC) [Entitic mass]29.6 deVgpums91.0-34.0[facility] HospitalComment on above:Performed By: #### [id number] #### [facility] [address] [place] [address] 194[address]BSKI (RBC) [Mass/Vol]34.1 g/kWRgglcw79.4-36.0[facility] HospitalComment on above:Performed By: #### [id number] #### [facility] [address] [place] [address] 646[address]IBW (RBC) [Entitic vol]86.8 zPRctaas90.0-100.0[facility] HospitalComment on above:Performed By: #### [id number] #### [facility] [address] [place] [address]Dhgkperi751.0 E9/PJnqijz736.0-500.0[facility] Comment on above:Performed By: #### [id number] #### [facility] [address] [place] [address] 18[address]Zkdtdwnt mean volume (Bld) [Entitic vol]7.8 fLNormal6.4-10.8 [facility] HospitalComment on above:Performed By: #### [id number] #### [facility] [address], [place] [address]JIQ (Bld) [#/Vol]4.2 E12/LLow4.3-5.9[facility] Comment on above:Performed By: #### [id number] #### [facility] [address], [place] [address]BZQ size Nom (Bld)NORMALInvalid Interpretation CodeDunlap Memorial HospitalComment on above:Performed By: #### [id number] #### [facility] [address], [place] [address]AQE corrected for nucl RBC Auto (Bld) [#/Vol]17.7 E9/LHigh 4.0-11.0[facility] Memorial HospitalComment on above:Performed By: #### [id number] #### [facility] [address], [place] [address]TRFBUHPURYzohxpl By: SYSTEM SYSTEM on 06-54-7858Xilhe gap [Moles/Vol]10 mmol/LNormal6 - 16 mEq/LRemisol ChemCalcium [Mass/Vol]8.5 mg/dLLow 8.9 - 11.1 mg/dLRemisol ChemChloride [Moles/Vol]107 mmol/RQrlrxg661 - 111 mmol/L Remisol ChemCO2 [Moles/Vol]23 mmol/CTheeox62 - 31 mmol/LRemisol ChemCreatinine [Mass/Vol]0.6 mg/dLNormal0.5 - 1.3 mg/dLRemisol RzhygLGL758 mL/min/1.73 k4Tvnwtv >=59mL/min/1.73 d6Hiujouc ChemGlucose [Mass/Vol]106 mg/sWGpaapl46 - 199 mg/dL Remisol ChemMagnesium [Mass/Vol]1.8 mg/dLNormal1.3 - 2.4 mg/dLRemisol Chem Potassium [Moles/Vol]3.5 mmol/LNormal3.5 - 5.3 mmol/LRemisol ChemSodium [Moles/Vol]136 mmol/ZSrjees666 - 145 mmol/LRemisol ChemUrea nitrogen [Mass/Vol] 10 mg/dLNormal5 - 21 mg/dLRemisol ChemUrea nitrogen/Creatinine [Mass ratio]17 mg/qvPbrldg32 - 20Remisol ChemED Note-Physicianon 76-83-7843KS Note-PhysicianED Note-Physician Basic Information Time Seen: Johny [...] her chart. I discussedthe case with her DIRECTOR OF PHYSICAL THERAPY, Dr. Meade. He states the patient can be admitted to medicine he will consult. I discussed case with Dr. Gilbert from the hospitalist staff. He would prefer to consult but have the patient admitted to DIRECTOR OF PHYSICAL THERAPY. Assessment/Plan 1. Esophagitis (K20.90: Esophagitis, unspecified without [...] over 20 minute(s) So (more content not included)...[facility]oria City HospitalComment on above:Result Comment: Electronically Signed By: Boo Pina M.D. H\.br\Date and Time Signed: 06/20/2501:15 EDT\.br\Electronically Co-Signed By: Keith Martinez Comment: Electronically Signed By: Boo Pina M.D. H\.br\Date and Time Signed: 06/20/2501:15 EDT\.br\Electronically Co-Signed By: Johny Laura MD\.br\Date and Time Co-Signed: 06/19/24 17:01 EDTHEMATOLOGYOrdered By: SYSTEM SYSTEM on 56-56-2465Sywsnqequjp distribution width (RBC) [Ratio]14.6 %High10.9 - 14.2 %Remisol HemeHematocrit (Bld) [Volume fraction]36.5 %Kpmucm82.0 - 46.0 %Remisol HemeHemoglobin (Bld) [Mass/Vol]12.5 g/gMFidbay37.0 - 16.0 gm/dL Remisol HemeMCH (RBC) [Entitic mass]29.6 euYnwoaf08.0 - 34.0 pgRemisol HemeMCHC (RBC) [Mass/Vol]34.1 g/wOVpskns85.4 - 36.0 gm/dLRemisol HemeMCV (RBC) [Entitic vol]86.8 nOSdhkjs58.0 - 100.0 fLRemisol HineRnshwekr152.0 E9/XPfstfh369.0 - 500.0 E9/LRemisol HemePlatelet mean volume (Bld) [Entitic vol]7.8 fLNormal6.4 - 10.8 fLRemisol HemeRBC (Bld) [#/Vol]4.2 E12/LLow4.3 - 5.9 E12/LRemisol HemeRBC size Nom (Bld)NORMAL *NA* (06/20/24 6:53 AM)Invalid Interpretation CodeRemisol HemeWBC corrected for nucl RBC Auto (Bld) [#/Vol]17.7 E9/LHigh4.0 - 11.0 E9/LRemisol HemeInterdisciplinary Note - Case Manageron 28-40-7803Dkzuhxxqrrvrjiqcd Note - Healthcare Social Worker Interdisciplinary Note - Healthcare Social Worker CRM to room 315 Patient is alert [...] Dr Gilbert is adding IV fluids and ReglanNormalDunlap Memorial Hospital Comment on above:Result Comment: Electronically Signed By: Manju Man\Date and Time Signed: 06/20/24 12:06 EDTMagnesiumon 27-18-6933Cducrhqbb [Mass/Vol]1.8 mg/dLNormal1.3-2.4[facility] Hospital CenterComment on above: Performed By: #### [id number] #### [facility] [address], [place] [address]Fvalwwmsuowbgi 43-13-3178Zgfwijwhhhiz Lvl67.98 ng/mLInvalid Interpretation CodeDunlap Memorial HospitalComment on above:Result Comment: 'F NON FOLLICULAR = 0.10 - 0.60' 'LUTEAL = 3.00 - 17.5' 'MIDLUTEAL = 3.30 - 18.6' 'POST-MENOPAUSE = 0.10 - 0.40' '-FIRST TRIMESTER = 8.30 - 66.5' 'SECOND TRIMESTER = 18.9 - 66.1' 'THIRD TRIMESTER = 35.8 - 312.4' 'MALES = 0.14 - 2.06' Result Verified by DilutionPerformed By: #### [id number] #### [facility] [address], [place] [address]VI Transvaginalon 34-19-0161ZD Transvaginal Exam Date/Time: 06/20/2024 07:55 EDT Reason [...] corresponding gestational age +/- 1 week are: [place] Rump Length: 0.4 cm Composite Ultrasound Age: [...] Oneil Valadez MD Transcribed by: JURGEN Technologist: [facility] CincinnatieGFRon 18-79-1091iLVG812 mL/min/1.73 v9Vkxtri>=59[facility] HospitalComment on above:Performed By: #### [id number] #### [facility] [address], [place] [address]Cpmoeubbq 52-22-2571Fswvcus [Catalytic activity/Vol]84 U/L Oqaemg05-031MufgddDunlap Memorial HospitalComment on above:Performed By: #### [id number] #### [facility] [address], [place] [address]DFEwr 87-94-0328Motky gap [Moles/Vol]13 mmol/LNormal6-16[facility] HospitalComment on above:Performed By: #### [id number] #### [facility] [address], [place] [address]Jwjubcu [Mass/Vol]9.0 mg/dLNormal8.9-11.1FCorey HospitalComment on above:Performed By: #### [id number] #### [facility] [address], [place] [address]Lxcwbndm [Moles/Vol]107 mmol/JSwtwbz234-988ZzugxtDunlap Memorial HospitalComment on above:Performed By: #### [id number] #### [facility] [address], [place] [address]WH7 [Moles/Vol]21 mmol/KMyyrsq31-15RyrtexDunlap Memorial Hospital Comment on above:Performed By: #### [id number] #### [facility] [address], [place] [address]Ffgsajqzdk [Mass/Vol]0.7 mg/dLNormal0.5-1.3FCorey HospitalComment on above:Performed By: #### [id number] #### [facility] [address], [place] [address]Trtyorj [Mass/Vol]119 mg/hFEwcrxx75-257HsluxeDunlap Memorial HospitalComment on above:Performed By: #### [id number] #### [facility] [address], [place] [address]Ynsqtcmgw [Moles/Vol]3.7 mmol/LNormal3.5-5.3FCorey HospitalComment on above:Performed By: #### [id number] #### [facility] [address], [place] [address]Xydnxz [Moles/Vol]137 mmol/UGemrlu271-079VxxrivDunlap Memorial HospitalComment on above:Performed By: #### [id number] #### [facility] [address], [place] [address]Dppb nitrogen [Mass/Vol]18 mg/dLNormal5-21[facility] HospitalComment on above:Performed By: #### [id number] #### [facility] [address], [place] [address]Vlyx nitrogen/Creatinine [Mass ratio]26 No FyskhXuyq72-57MsezzgDunlap Memorial HospitalComment on above:Performed By: #### [id number] #### [facility] [address] [place] [address]ZDQ w/ Auto Diffon 94-29-4344Chblseabg/100 WBC (Bld)0.2 %Normal 0.0-2.0[facility] Memorial HospitalComment on above:Performed By: #### [id number] #### [facility] [address] [place] [address] 180[address]Nnwbnsdzf/Leukocytes Auto (Bld) [Pure # fraction]0.0 E9/LNormal 0.0-0.2FCorey HospitalComment on above:Performed By: #### [id number] #### [facility] [address] [place] [address]Zxsycvewlbs (Bld) [#/Vol]0.0 E9/LNormal0.0-0.5FCorey HospitalComment on above:Performed By: #### [id number] #### [facility] [address] [place] [address] 98[address]Cuhoptwowmr/100 WBC (Bld)0.1 %Normal0.0-8.0[facility] Memorial HospitalComment on above:Performed By: #### [id number] #### [facility] [address] [place] [address] 923[address]Rqtsehtwawf distribution width (RBC) [Ratio]14.3 %High10.9-14.2 [facility] HospitalComment on above:Performed By: #### [id number] #### [facility] [address] [place] [address]37[address]Bhkfuacukl (Bld) [Volume fraction]40.1 %Uglhco74.0-46.0[facility] HospitalComment on above:Performed By: #### [id number] #### [facility] [address] [place] [address] 233[address]Ujqveckwns (Bld) [Mass/Vol]13.3 g/yHNxqkrf48.0-16.0[facility] HospitalComment on above:Performed By: #### [id number] #### [facility] [address] [place] [address]Tfjojhugvow (Bld) [#/Vol]1.5 E9/LNormal1.0-4.0[facility] Memorial HospitalComment on above:Performed By: #### [id number] #### [facility] [address] [place] [address] 108[address]Ynepuxvhuml/100 WBC (Bld)8.4 %Low14.0-50.0[facility] Memorial HospitalComment on above:Performed By: #### [id number] #### [facility] [address] [place] [address] 29352BGE (RBC) [Entitic mass]29.1 qnHjmezo55.0-34.0[facility] HospitalComment on above:Performed By: #### [id number] #### [facility] [address] [place] [address] 664[address]LQCE (RBC) [Mass/Vol]33.2 g/cXAibcld32.4-36.0[facility] HospitalComment on above:Performed By: #### [id number] #### [facility] [address] [place] [address] 13296UWN (RBC) [Entitic vol]87.5 sVLmxovj53.0-100.0[facility] HospitalComment on above:Performed By: #### [id number] #### [facility] [address] [place] [address] 47[address]Cdclhojjx (Bld) [#/Vol]0.6 E9/LNormal0.2-1.0[facility] HospitalComment on above:Performed By: #### [id number] #### [facility] [address] [place] [address]29[address]Dqktxeetwur (Bld) [#/Vol]15.4 E9/LHigh2.0-7.5FCorey HospitalComment on above:Performed By: #### [id number] #### [facility] [address] [place] [address] 80[address]Pilqhczfkzj/100 WBC (Bld)87.7 %High36.0-75.0[facility] Memorial HospitalComment on above:Performed By: #### [id number] #### [facility] [address], [place] [address]Yegezrlg632.0 E9/JOgxwqp445.0-500.0[facility] Comment on above:Performed By: #### [id number] #### [facility] [address], [place] [address]Imxnqeko mean volume (Bld) [Entitic vol]7.6 fLNormal6.4-10.8 [facility] HospitalComment on above:Performed By: #### [id number] #### [facility] [address] [place] [address] 022[address]IQB (Bld) [#/Vol]4.6 E12/LNormal4.3-5.9[facility] HospitalComment on above:Performed By: #### [id number] #### [facility] [address] [place] [address] 08[address]ZJT corrected for nucl RBC Auto (Bld) [#/Vol]17.5 E9/LHigh 4.0-11.0[facility] HospitalComment on above:Performed By: #### [id number] #### [facility] [address] [place] [address]MUNWKBSBSHkmklgg By: SYSTEM SYSTEM on 72-11-9333Udenbkfh HS2.40 pg/mLLow10.10 - 27.10 pg/mLRemisol ChemComment on [...] ratio]1.4 {ratio}Normal1.1 - 2.2Remisol ChemALP [Catalytic activity/Vol]40 [iU]/tOinsqk47 - 98 Int._Unit/LRemisol ChemALT No additional P-5'-P [Catalytic activity/Vol]14 [iU]/dNormal6 - 46 Int._Unit/L Remisol ChemAmylase [Catalytic activity/Vol]84 U/ZSlkynq76 - 157 unit/LRemisol ChemAST [Catalytic activity/Vol]13 [iU]/dNormal5 [...] Use, Jade Saleem, October 2017)ED Clinical Summaryon [id number] Clinical SummaryED Clinical Summary [place] [id number] ED Clinical Summary Person Information Name: INDU [place] Age: 28 Years : 1995 Sex: Female Language: Algerian PCP: Carolyne Collazo MD Marital Status: Phone: [phone] Visit Id: Visit Reason: Abdominal pain - ; Epigastric Pain; Nausea and vomiting; 6 WEEKS , VOMITING Speciality: Acuity: 3 Enc Type: Observation Med Service: Medical Arrival: 06/19/2024 10:47:59 Discharge: LOS: 000 10:47 Checkin: 06/19/2024 10:47:59 Checkout: 06/19/2024 21:34:58 Dispo Type: Admitted as IP to this [facility] EVENTS: Event Name Event Status Request [...] 06/19/2024 21:16:35 06/19/2024 21:16:35 ADDRESS: [address] [facility] [address] PHYS DOC NOTES: MEDICAL INFORMATION: Prescriptions Given: [...] 3:First trimester ; 4:On deep vein thrombosis (DVT)prophylaxisNoSt. Louis Children's Hospital Medical CenterED Note-Nursing on 49-50-0068CX Note-NursingED Note-Nursing Assumed care of patient. Patient awaiting admission acceptance. Resting in bed at this time. Report called to Zaria WHITE on 3 north.[facility] CenterED Note-NursingED Note-Nursing This RN spoke with Ko pharmacist regarding 2nd morphine dose and 3rd dose of Phenergan. Kostated that morphine was safe in to repeat, stated that Phenergan admiration needed to wait until 1800 to give 3rd dose. Ko to retime order.[facility] Medical CenterED Patient Education Noteon 34-79-5222UY Patient Education NoteED Patient Education NoteNoMount Carmel Health System CenterED Patient Summaryon 24-11-0088UE Patient SummaryED Patient Summary [place] [id number] Patient Discharge Instructions Person Information Name: INDU ST Age: 28 Years Arrival Date: 06/19/2024 10:47:59 Discharge Diagnosis: 1:Esophagitis; 2:Intractable vomiting; 3:First trimester ; 4:On deep vein thrombosis (DVT) prophylaxis Primary Care Physician: Carolyne Collazo MD Provider Information Primary Provider: Johny Laura MD Advanced Admeasurer:None The exam and treatment you received in the Emergency Department were for an urgent problem and are not intended as complete care. It is important that you follow up with a doctor, nurse practitioner,or physician???s higher level teaching assistant for ongoing care. If your symptoms [...] opioids can be used to help relieve ryqqvmep-tu-mjczyp pain and are often prescribed following a [...] be struggling with addiction, tell your health childcare teacher and askfor guidance or call [facility]???S National Helpline at 8-239-496-FTRM. (more content not included)...[facility]oria City HospitalExtra Blueon 33-99-4169Vxkl Collected PlasmaYesInvalid Interpretation [facility] SystemComment on above:Performed By: #### [id number] #### [facility] [address] [place] [address]JMGLGCKAVLNkbqsvx By: SYSTEM SYSTEM on 67-64-6715Gubynoubw/100 WBC (Bld)0.2 %Normal0.0 - 2.0 %Remisol HemeBasophils/Leukocytes [...] %High36.0 - 75.0 %Remisol HemeHep Func Panelon 21-69-3720Wkyoxqi [Mass/Vol]3.8 g/dLNormal3.3-5.0[facility] HospitalComment on above:Performed By: #### [id number] #### [facility] [address] [place] [address] 26[address]Yvlvvvu/Globulin (S) [Mass conc ratio]1.7Tfrhif6.1-2.2FCorey HospitalComment on above:Performed By: #### [id number] #### [facility] [address], [place] [address]KXL [Catalytic activity/Vol]40 Int._Unit/XWsrmwf29-22NoqksgDunlap Memorial HospitalComment on above:Performed By: #### [id number] #### [facility] [address], [place] [address]NSR No additional P-5'-P [Catalytic activity/Vol]14 Int._Unit/L Normal6-46[facility] Memorial HospitalComment on above:Performed By: #### [id number] #### [facility] [address], [place] [address]WUZ [Catalytic activity/Vol]13 Int._Unit/LNormal5-43[facility] HospitalComment on above:Performed By: #### [id number] #### [facility] [address], [place] [address]Prhaewekq [Mass/Vol]0.5 mg/dLNormal0.0-1.1FCorey HospitalComment on above:Performed By: #### [id number] #### [facility] [address] [place] [address] 15[address]Zofswqncb.direct [Mass/Vol]0.1 mg/dLNormal0.0-0.4FCorey HospitalComment on above:Performed By: #### [id number] #### [facility] [address] [place] [address]87[address]Fqkzvsayf.indirect [Mass or moles/Vol]0.4 mg/dLNormal0.1-0.9 [facility] HospitalComment on above:Performed By: #### [id number] #### [facility] [address] [place] [address] 268[address]Kesyvjyb (S) [Mass/Vol]2.7 g/dLNormal1.4-4.0[facility] HospitalComment on above:Performed By: #### [id number] #### [facility] [address] [place] [address] 325[address]Kivzxes [Mass/Vol]6.5 g/dLNormal6.0-7.8[facility] HospitalComment on above:Performed By: #### [id number] #### [facility] [address] [place] [address] 655[address]Rydyqs Levelon 89-49-6029Kocjua [Catalytic activity/Vol]84 U/L Jmin64-17IvlfxoDunlap Memorial HospitalComment on above:Performed By: #### [id number] #### [facility] [address] [place] [address] 392[address]Zfz-Wrgjddp Noteon 66-04-9639Unq-Arrival NotePre-Arrival Note Pre-Arrival Summary Name: , Current Date: 06/19/2024 10:48:27 EDT Gender: Date of : Age: 28 Pre-Arrival Type: EMS ETA: 06/19/2024 11:07:00 EDT Primary Care Physician: Presenting Problem: 6 wk preggers with vomiting Pre-Arrival User: Mechelle Babin RN Referring Source: Location: PA Completion Date/Time: 06/19/2024 10:37:00 [facility] Emergency Department Pre-Hospital Report Form Vital Signs: Pre-Hospital Report: Treatment in Route: Response to Treatment: Misc. Issues:NormalDunlap Memorial HospitalTroponin 0 Hr.on 06-19-2024 Troponin HS<2.50Pjr47.10-27.10[facility] HospitalComment on above:Result Comment: The 95% CI (Confidence Interval) PPV (Positive Predictive Value) for myocardial infarction in females is 38 pg/mL, in males 51 pg/mL. The results should be used in conjunction with clinical conditions of myocardial infarction. (Access High Sensitivity Troponin I Instructions For Use, [employer], October 2017)Performed By: #### [id number] #### [facility] [address], [place] [address]Rbzpzllx 3 Hr.on 00-70-7938Pusldqkh HS2.40 pg/mLLow10.10-27.10 [facility] HospitalComment on above:Result Comment: The 95% CI (Confidence Interval) PPV (Positive Predictive Value) for myocardial infarction in females is 38 pg/mL, in males 51 pg/mL. The results should be used in conjunction with clinical conditions of myocardial infarction. (Access High Sensitivity Troponin I Instructions For Use, [employer], October 2017)Performed By: #### [id number] #### [facility] [address], [place] [address]EL with Cult Rflxon 31-16-1200Wzgabygcv Ql (U)NegativeNormal NegativeDunlap Memorial HospitalComment on above:Performed By: #### [id number] #### [facility] [address], [place] [address]Ficcvmw (U)ClearNormalClearDunlap Memorial HospitalComment on above:Performed By: #### [id number] #### [facility] [address], [place] [address]Rcutu (U)YellowNormalYellowDunlap Memorial HospitalComment on above:Result Comment: Microscopic readings are only performed on those samples that meet specific criteria set forth by [facility].Performed By: #### [id number] #### [facility] [address], [place] [address]Kgcyucq Ql (U)NegativeNormalNegativeDunlap Memorial Hospital Comment on above:Performed By: #### [id number] #### [facility] [address], [place] [address]Kfvezbsygt Auto test strip (U) [Mass/Vol]NegativeNormalNegative [facility] HospitalComment on above:Performed By: #### [id number] #### [facility] [address], [place] [address]Vjoxsdd Auto test strip Ql (U)2+ mg/dLAbnormalNegMary Rutan HospitalComment on above:Performed By: #### [id number] #### [facility] [address], [place] [address]Pltldlbeg esterase Auto test strip Ql (U)NegativeNormalNegative [facility] HospitalComment on above:Performed By: #### [id number] #### [facility] [address], [place] [address]Dmgbnat Auto test strip Ql (U)NegativeNormalNegativeDunlap Memorial HospitalComment on above:Performed By: #### [id number] #### [facility] [address], [place] [address]zT (U)6.0 [pH]Invalid Interpretation Code5.0-9.0[facility] HospitalComment on above:Performed By: #### [id number] #### [facility] [address], [place] [address]Skdnfnf Ql (U)TraceAbnormalNegativeDunlap Memorial Hospital Comment on above:Performed By: #### [id number] #### [facility] [address] [place] [address] 02284Cujpcxir gravity (U) [Rel density]1.025Invalid Interpretation Code1.005-1.030[facility] Memorial HospitalComment on above:Performed By: #### [id number] #### [facility] [address] [place] [address] 19259Iyrvthgckfvu (U) [Mass/Vol]NegativeNormalNegativeDunlap Memorial HospitalComment on above:Performed By: #### [id number] #### [facility] [address] [place] [address] 07103Skxd of Urine collection methodClean CatchFostoria City HospitalComment on above:Performed By: #### [id number] #### [facility] [address] [place] [address] 39410YHFLJQJMLEXxnhgss By: SYSTEM SYSTEM on 61-37-6371Fpawuursy Ql (U)NegativeNormalNegativemg/dLFT UA Auto SSClarity (U)Clear (06/19/24 12:40 PM)NormalClearFTMC UA Auto SSColor (U)Yellow 1 (06/19/24 12:40 PM)NormalYellowFT UA Auto SSComment on above:Interpretive Data: Microscopic readings are only performed on those samples that meet specific criteria set forth by [facility].Glucose Ql (U) NegativeNormalNegativemg/dLFT UA Auto SSHemoglobin Auto test strip (U) [Mass/Vol]NegativeNormalNegativemg/dLFTMC UA Auto SSKetones Auto test strip Ql (U)2+ mg/dLInvalid Interpretation CodeNegativemg/dLFT UA Auto SSLeukocyte esterase Auto test strip Ql (U)NegativeNormalNegativeLeu/uLFT UA Auto SS Nitrite Auto test strip Ql (U)NegativeNormalNegativemg/dLFT UA Auto SSpH (U) 6.0 *NA* (06/19/24 12:40 PM)Invalid Interpretation Code5.0 - 9.0[facility] Auto SSProtein Ql (U)Trace mg/dLInvalid Interpretation CodeNegativemg/dLMERCY HOS[facility] [place] Auto SSSpecific gravity (U) [Rel density]1.025 *NA* (06/19/24 12:40 PM)Invalid Interpretation Code1.005 - 1.030[facility] [place] Auto SS Urobilinogen (U) [Mass/Vol]NegativeNormalNegativemg/dLMERCY HOS[facility] [place] Auto SSURINALYSIS Ordered By: Johny Laura on 48-34-8562OV Spec DescClean Catch (06/19/24 12:40 PM)NormalMERCY HOSPITAL [facility] [place] Auto SS us Gallbladderon [id number] GallbladderExam Date/Time: 06/19/2024 14:23 EDT Reason for [...] Jade Payton DO Transcribed by: JURGEN Technologist: [facility]XR Chest Single Viewon [id number] Chest Single ViewExam Date/Time: 06/19/2024 14:28 EDT [...] Jade Payton DO Transcribed by: JURGEN Technologist: KristanDunlap Memorial HospitaleGFRon 60-72-7425wNXZ853 mL/min/1.73 a0Oxgxqv>=59[facility] HospitalComment on above:Performed By: #### [id number] #### [facility] [address], [place] [address]Khgjdegazsm 07-19-9553N0 [Mass/Vol]172.0 pg/mLInvalid Interpretation [facility] SystemComment on above:Result Comment: Adult Female Range Follicular phase 12.5 - 166.0 Ovulation phase 85.8 - 498.0 Luteal phase 43.8 - 211.0 Postmenopausal <6.0 - 54.7 1st trimester 215.0 - >4300.0 Carolin ECLIA methodology Performed at: [facility] [address] [id number] PhD Randa OchoaPerformed By: #### [id number] #### [facility] [address] [place], [place] [address]SqSY Quanton 04-06-1419GUC.beta subunit Si12015 m[IU]/mLHigh1-3 [facility] HospitalComment on above:Result Comment: 'F NON < 1 - 3' ' 0.2 - 1 WEEK = 5 TO 50' ' 1 - 2 WEEKS = 50 - 500' ' 2 - 3 WEEKS = 100 - 5000' ' 3 - 4 WEEKS = 500 - 98145' ' 4 - 5 WEEKS = 1000 - 09388' ' 5 - 6 WEEKS = 35083 - 264018' ' 6 - 8 WEEKS = 84840 - 634721' ' 8 - 12 WEEKS = 42373 - 360315'Performed By: #### [id number] #### [facility] [address] [place], [place] [address]QCQOZEMOLHcwzijf By: SYSTEM SYSTEM on 40-96-9731TEM.beta subunit Sw79040 m[IU]/mLHigh1 - 3 mIU/mLRemisol ChemComment on above:Result Comment: 'F NON < 1 - 3' ' 0.2 - 1 WEEK = 5 TO 50' ' 1 - 2 WEEKS = 50 - 500' ' 2 - 3 WEEKS = 100 - 5000' ' 3 - 4 WEEKS = 500 - 01227' ' 4 - 5 WEEKS = 1000 - 07779' ' 5 - 6 WEEKS = 31019 - 657100' ' 6 - 8 WEEKS = 17470 - 508634' ' 8 - 12 WEEKS = 74241 - 315761'Progesterone Lvl38.45 ng/mLInvalid Interpretation CodeRemisol ChemComment on above:Result Comment: 'F NON FOLLICULAR = 0.10 - 0.60' 'LUTEAL = 3.00 - 17.5' 'MIDLUTEAL = 3.30 - 18.6' 'POST-MENOPAUSE = 0.10 - 0.40' '-FIRST TRIMESTER = 8.30 - 66.5' 'SECOND TRIMESTER = 18.9 - 66.1' 'THIRD TRIMESTER = 35.8 - 312.4' 'MALES = 0.14 - 2.06'Progesteroneon 03-88-5490Rmnbxsebkeff Lvl38.45 ng/mLInvalid Interpretation [facility] CenterComment on above:Result Comment: 'F NON FOLLICULAR = 0.10 - 0.60' 'LUTEAL = 3.00 - 17.5' 'MIDLUTEAL = 3.30 - 18.6' 'POST-MENOPAUSE = 0.10 - 0.40' '-FIRST TRIMESTER = 8.30 - 66.5' 'SECOND TRIMESTER = 18.9 - 66.1' 'THIRD TRIMESTER = 35.8 - 312.4' 'MALES = 0.14 - 2.06'Performed By: #### [id number] #### [facility] [address] [place], [place] [address]HW Transvaginalon [id number] Transvaginal Exam Date/Time: 06/16/2024 14:31 EDT Reason [...] Arun Bhatia MD Transcribed by: JURGEN Technologist: ChrisDunlap Memorial HospitalEstradiolon [id number] [Mass/Vol]1761.0 pg/mLInvalid Interpretation [facility] SystemComment on above:Result Comment: Adult Female Range Follicular phase 12.5 - 166.0 Ovulation phase 85.8 - 498.0 Luteal phase 43.8 - 211.0 Postmenopausal <6.0 - 54.7 1st trimester 215.0 - >4300.0 Carolin ECLIA methodology Performed at: [facility] [address] [id number] PhD Randa OchoaPerformed By: #### [id number] #### [facility] [address] [place] [address] 21787EwYF Quanton 40-45-0067PGV.beta subunit Oe3707 m[IU]/mLHigh1-3 [facility] HospitalComment on above:Result Comment: 'F NON < 1 - 3' ' 0.2 - 1 WEEK = 5 TO 50' ' 1 - 2 WEEKS = 50 - 500' ' 2 - 3 WEEKS = 100 - 5000' ' 3 - 4 WEEKS = 500 - 41447' ' 4 - 5 WEEKS = 1000 - 18658' ' 5 - 6 WEEKS = 16561 - 767940' ' 6 - 8 WEEKS = 51736 - 713643' ' 8 - 12 WEEKS = 00839 - 153075'Performed By: #### [id number] #### [facility] [address] [place], [place] [address]EMXPWJEHOMsiseif By: SYSTEM SYSTEM on 79-40-8182LGD.beta subunit Qv8166 m[IU]/mLHigh1 - 3 mIU/mLRemisol ChemComment on above:Result Comment: 'F NON < 1 - 3' ' 0.2 - 1 WEEK = 5 TO 50' ' 1 - 2 WEEKS = 50 - 500' ' 2 - 3 WEEKS = 100 - 5000' ' 3 - 4 WEEKS = 500 - 64792' ' 4 - 5 WEEKS = 1000 - 20701' ' 5 - 6 WEEKS = 42116 - 451603' ' 6 - 8 WEEKS = 03842 - 849586' ' 8 - 12 WEEKS = 59746 - 072147'Progesterone Lvl62.84 ng/mLInvalid Interpretation CodeRemisol ChemComment on above:Result Comment: 'F NON FOLLICULAR = 0.10 - 0.60' 'LUTEAL = 3.00 - 17.5' 'MIDLUTEAL = 3.30 - 18.6' 'POST-MENOPAUSE = 0.10 - 0.40' '-FIRST TRIMESTER = 8.30 - 66.5' 'SECOND TRIMESTER = 18.9 - 66.1' 'THIRD TRIMESTER = 35.8 - 312.4' 'MALES = 0.14 - 2.06' Result Verified by DilutionProgesteroneon 72-94-9004Dhlktoorrgyy Lvl62.84 ng/mL Invalid Interpretation CodeAlpesher Western Maryland Hospital CenterComment on above:Result Comment: 'F NON FOLLICULAR = 0.10 - 0.60' 'LUTEAL = 3.00 - 17.5' 'MIDLUTEAL = 3.30 - 18.6' 'POST-MENOPAUSE = 0.10 - 0.40' '-FIRST TRIMESTER = 8.30 - 66.5' 'SECOND TRIMESTER = 18.9 - 66.1' 'THIRD TRIMESTER = 35.8 - 312.4' 'MALES = 0.14 - 2.06' Result Verified by DilutionPerformed By: #### [id number] #### [facility] [address] [place], [place] [address]CZ Transvaginalon [id number] Transvaginal Exam Date/Time: 06/13/2024 07:26 EDT Reason [...] Willi Barros MD Transcribed by: JURGEN Technologist: RamónDunlap Memorial HospitalEstradiolon [id number] [Mass/Vol]112.0 pg/mLInvalid Interpretation [facility] SystemComment on above:Result Comment: Adult Female Range Follicular phase 12.5 - 166.0 Ovulation phase 85.8 - 498.0 Luteal phase 43.8 - 211.0 Postmenopausal <6.0 - 54.7 1st trimester 215.0 - >4300.0 Carolin ECLIA methodology Performed at: [facility] [id number] PhD Randa OchoaPerformed By: #### [id number] #### [facility] [address] [place], [place] [address]VyUY Quanton 95-64-1464LHV.beta subunit Qn677 m[IU]/mLHigh1-3 [facility] HospitalComment on above:Result Comment: 'F NON < 1 - 3' ' 0.2 - 1 WEEK = 5 TO 50' ' 1 - 2 WEEKS = 50 - 500' ' 2 - 3 WEEKS = 100 - 5000' ' 3 - 4 WEEKS = 500 - 60201' ' 4 - 5 WEEKS = 1000 - 74355' ' 5 - 6 WEEKS = 64701 - 120127' ' 6 - 8 WEEKS = 16095 - 782481' ' 8 - 12 WEEKS = 43285 - 489998'Performed By: #### [id number] #### [facility] [address] [place], [place] [address]TJEJRUCIBBbpdqim By: SYSTEM SYSTEM on 96-34-9502YVM.beta subunit Qn677 m[IU]/mLHigh1 - 3 mIU/mLRemisol ChemComment on above:Result Comment: 'F NON < 1 - 3' ' 0.2 - 1 WEEK = 5 TO 50' ' 1 - 2 WEEKS = 50 - 500' ' 2 - 3 WEEKS = 100 - 5000' ' 3 - 4 WEEKS = 500 - 26221' ' 4 - 5 WEEKS = 1000 - 16428' ' 5 - 6 WEEKS = 49318 - 697842' ' 6 - 8 WEEKS = 41588 - 347664' ' 8 - 12 WEEKS = 00268 - 196705'Progesterone Lvl43.84 ng/mLInvalid Interpretation CodeRemisol ChemComment on above:Result Comment: 'F NON FOLLICULAR = 0.10 - 0.60' 'LUTEAL = 3.00 - 17.5' 'MIDLUTEAL = 3.30 - 18.6' 'POST-MENOPAUSE = 0.10 - 0.40' '-FIRST TRIMESTER = 8.30 - 66.5' 'SECOND TRIMESTER = 18.9 - 66.1' 'THIRD TRIMESTER = 35.8 - 312.4' 'MALES = 0.14 - 2.06' Result Verified by [facility]TS Qn1.56 m[IU]/LNormal0.34 - 5.60 mcIU/mLRemisol ChemProgesteroneon 12-97-9660Uxeevpctaabt Lvl43.84 ng/mLInvalid Interpretation CodeDunlap Memorial HospitalComment on above:Result Comment: 'F NON FOLLICULAR = 0.10 - 0.60' 'LUTEAL = 3.00 - 17.5' 'MIDLUTEAL = 3.30 - 18.6' 'POST-MENOPAUSE = 0.10 - 0.40' '-FIRST TRIMESTER = 8.30 - 66.5' 'SECOND TRIMESTER = 18.9 - 66.1' 'THIRD TRIMESTER = 35.8 - 312.4' 'MALES = 0.14 - 2.06' Result Verified by DilutionPerformed By: #### [id number] #### [facility] [address] [place], [place] [address]Gxkolizjt Laboratory TestingOrdered By: Generated DomainUser on [id number] [Mass/Vol]112.0 pg/mLInvalid Interpretation [facility] SendOutsSS Comment on above:Result Comment: Adult Female Range Follicular phase 12.5 - 166.0 Ovulation phase 85.8 - 498.0 Luteal phase 43.8 - 211.0 Postmenopausal <6.0 - 54.7 1st trimester 215.0 - >4300.0 Carolin ECLIA methodology Performed at: [facility] [id number] [id number] PhD Randa Nichole 49-48-2662QUO Qn1.56 m[IU]/LNormal 0.34-5.60[facility] HospitalComment on above:Performed By: #### [id number] #### [facility] [address] [place], [place] [address]WbCX Quanton 05-97-3962UJE.beta subunit Qn264 m[IU]/mLHigh1-3 [facility] HospitalComment on above:Result Comment: 'F NON < 1 - 3' ' 0.2 - 1 WEEK = 5 TO 50' ' 1 - 2 WEEKS = 50 - 500' ' 2 - 3 WEEKS = 100 - 5000' ' 3 - 4 WEEKS = 500 - 61253' ' 4 - 5 WEEKS = 1000 - 22366' ' 5 - 6 WEEKS = 20831 - 964306' ' 6 - 8 WEEKS = 03276 - 782572' ' 8 - 12 WEEKS = 61340 - 936592'Performed By: #### [id number] #### [facility] [address] [place], [place] [address]QKFJVSMYJLioighs By: SYSTEM SYSTEM on 99-18-2115OQG.beta subunit Qn264 m[IU]/mLHigh1 - 3 mIU/mLRemisol ChemComment on above:Result Comment: 'F NON < 1 - 3' ' 0.2 - 1 WEEK = 5 TO 50' ' 1 - 2 WEEKS = 50 - 500' ' 2 - 3 WEEKS = 100 - 5000' ' 3 - 4 WEEKS = 500 - 23422' ' 4 - 5 WEEKS = 1000 - 33956' ' 5 - 6 WEEKS = 74389 - 714709' ' 6 - 8 WEEKS = 97606 - 516536' ' 8 - 12 WEEKS = 59858 - 692035'Progesterone Lvl58.23 ng/mLInvalid Interpretation CodeRemisol ChemComment on above:Result Comment: 'F NON FOLLICULAR = 0.10 - 0.60' 'LUTEAL = 3.00 - 17.5' 'MIDLUTEAL = 3.30 - 18.6' 'POST-MENOPAUSE = 0.10 - 0.40' '-FIRST TRIMESTER = 8.30 - 66.5' 'SECOND TRIMESTER = 18.9 - 66.1' 'THIRD TRIMESTER = 35.8 - 312.4' 'MALES = 0.14 - 2.06' Result Verified by DilutionProgesteroneon 77-52-7044Uxuthfrtokjy Lvl58.23 ng/mL Invalid Interpretation CodeFishUniversity of Maryland Medical CenterComment on above:Result Comment: 'F NON FOLLICULAR = 0.10 - 0.60' 'LUTEAL = 3.00 - 17.5' 'MIDLUTEAL = 3.30 - 18.6' 'POST-MENOPAUSE = 0.10 - 0.40' '-FIRST TRIMESTER = 8.30 - 66.5' 'SECOND TRIMESTER = 18.9 - 66.1' 'THIRD TRIMESTER = 35.8 - 312.4' 'MALES = 0.14 - 2.06' Result Verified by DilutionPerformed By: #### [id number] #### [facility] [address] [place], [place] [address]Rzkazexlshu [id number] [Mass/Vol]282.0 pg/mLInvalid Interpretation [facility] SystemComment on above:Result Comment: Adult Female Range Follicular phase 12.5 - 166.0 Ovulation phase 85.8 - 498.0 Luteal phase 43.8 - 211.0 Postmenopausal <6.0 - 54.7 1st trimester 215.0 - >4300.0 Carolin ECLIA methodology Performed at: [facility] [id number] [id number] PhD Randa OchoaPerformed By: #### [id number] #### [facility] [address] [place], [place] [address]WKSHNICDYRhbfcpa By: SYSTEM SYSTEM on 29-44-4527Vnvsryiykpzz Lvl44.85 ng/mLInvalid Interpretation CodeRemisol ChemComment on above:Result Comment: 'F NON FOLLICULAR = 0.10 - 0.60' 'LUTEAL = 3.00 - 17.5' 'MIDLUTEAL = 3.30 - 18.6' 'POST-MENOPAUSE = 0.10 - 0.40' '-FIRST TRIMESTER = 8.30 - 66.5' 'SECOND TRIMESTER = 18.9 - 66.1' 'THIRD TRIMESTER = 35.8 - 312.4' 'MALES = 0.14 - 2.06' Result Verified by Repeat Analysis Result Verified by DilutionProgesteroneon 90-54-1662Sfrsmkwiywit Lvl44.85 ng/mL Invalid Interpretation [facility] SystemComment on above:Result Comment: 'F NON FOLLICULAR = 0.10 - 0.60' 'LUTEAL = 3.00 - 17.5' 'MIDLUTEAL = 3.30 - 18.6' 'POST-MENOPAUSE = 0.10 - 0.40' '-FIRST TRIMESTER = 8.30 - 66.5' 'SECOND TRIMESTER = 18.9 - 66.1' 'THIRD TRIMESTER = 35.8 - 312.4' 'MALES = 0.14 - 2.06' Result Verified by Repeat Analysis Result Verified by DilutionPerformed By: #### [id number] #### [facility] [address] [place], [place] [address]Smwlqjxpn Laboratory TestingOrdered By: Generated DomainUser on [id number] [Mass/Vol]282.0 pg/mLInvalid Interpretation [facility] SendOutsSS Comment on above:Result Comment: Adult Female Range Follicular phase 12.5 - 166.0 Ovulation phase 85.8 - 498.0 Luteal phase 43.8 - 211.0 Postmenopausal <6.0 - 54.7 1st trimester 215.0 - >4300.0 Carolin ECLIA methodology Performed at: [address] [id number] [id number] PhD Randa Mccain [id number] [Mass/Vol]143.0 pg/mL Invalid Interpretation [facility] SystemComment on above:Result Comment: Adult Female Range Follicular phase 12.5 - 166.0 Ovulation phase 85.8 - 498.0 Luteal phase 43.8 - 211.0 Postmenopausal <6.0 - 54.7 1st trimester 215.0 - >4300.0 Carolin ECLIA methodology Performed at: [address] [id number] [id number] PhD Randa OchoaPerformed By: #### [id number] #### [facility] [address] [place], [place] [address]HZmf 89-77-6632Rwgpgcxa Qn9.6 m[IU]/mLInvalid Interpretation [facility] SystemComment on above:Result Comment: Adult Female Range Follicular phase 2.4 - 12.6 Ovulation phase 14.0 - 95.6 Luteal phase 1.0 - 11.4 Postmenopausal 7.7 - 58.5 Performed at: [address] [id number] PhD Randa OchoaPerformed By: #### [id number] #### [facility] [address], [place] [address]RCQFCGPKUHxkwxnj By: SYSTEM SYSTEM on 22-76-8966Pmfmhmkjlnkb Lvl0.42 ng/mLInvalid Interpretation CodeRemisol ChemComment on above:Result Comment: 'F NON FOLLICULAR = 0.10 - 0.60' 'LUTEAL = 3.00 - 17.5' 'MIDLUTEAL = 3.30 - 18.6' 'POST-MENOPAUSE = 0.10 - 0.40' '-FIRST TRIMESTER = 8.30 - 66.5' 'SECOND TRIMESTER = 18.9 - 66.1' 'THIRD TRIMESTER = 35.8 - 312.4' 'MALES = 0.14 - 2.06'Progesteroneon 48-47-8329Duylwhwlbkit Lvl0.42 ng/mLInvalid Interpretation [facility] SystemComment on above:Result Comment: 'F NON FOLLICULAR = 0.10 - 0.60' 'LUTEAL = 3.00 - 17.5' 'MIDLUTEAL = 3.30 - 18.6' 'POST-MENOPAUSE = 0.10 - 0.40' '-FIRST TRIMESTER = 8.30 - 66.5' 'SECOND TRIMESTER = 18.9 - 66.1' 'THIRD TRIMESTER = 35.8 - 312.4' 'MALES = 0.14 - 2.06'Performed By: #### [id number] #### [facility] [address], [place] [address]Scpryfenw Laboratory TestingOrdered By: Generated DomainUser on [id number] [Mass/Vol]143.0 pg/mLInvalid Interpretation [facility] SendOutsSS Comment on above:Result Comment: Adult Female Range Follicular phase 12.5 - 166.0 Ovulation phase 85.8 - 498.0 Luteal phase 43.8 - 211.0 Postmenopausal <6.0 - 54.7 1st trimester 215.0 - >4300.0 Carolin ECLIA methodology Performed at: [facility] [id number] PhD Randa Phillipsropin Qn9.6 m[IU]/mLInvalid Interpretation [facility] SendOutsSSComment on above:Result Comment: Adult Female Range Follicular phase 2.4 - 12.6 Ovulation phase 14.0 - 95.6 Luteal phase 1.0 - 11.4 Postmenopausal 7.7 - 58.5 Performed at: [facility] [id number] [id number] PhD Randa Trivedi Transvaginal Non-OBon [id number] Transvaginal Non-OBExam Date/Time: 05/20/2024 07:58 EDT Reason [...] , FINAL REPORT Dictated: 05/20/2024 8:38 am Arnu Bhatia MD Signed (Electronic Signature): 05/20/2024 8:38 am Signed by: Arun Bhatia MD Transcribed by: JURGEN Technologist: ChrisDunlap Memorial HospitalEstradiolon [id number] [Mass/Vol]84.1 pg/mLInvalid Interpretation [facility] SystemComment on above:Result Comment: Adult Female Range Follicular phase 12.5 - 166.0 Ovulation phase 85.8 - 498.0 Luteal phase 43.8 - 211.0 Postmenopausal <6.0 - 54.7 1st trimester 215.0 - >4300.0 Carolin ECLIA methodology Performed at: [address] [id number] [id number] PhD Randa Ramírezformed By: #### [id number] #### [facility] [address], [place] [address]DWQ and LHon 38-81-4768Qhcoprtttyf Qn11.2 m[IU]/mLInvalid Interpretation [facility] SystemComment on above:Result Comment: Adult Female Range Follicular phase 3.5 - 12.5 Ovulation phase 4.7 - 21.5 Luteal phase 1.7 - 7.7 Postmenopausal 25.8 - 134.8 Performed at: [address] [id number] [id number] PhD Randa Ramírezformed By: #### [id number] #### [facility] [address] [place], [place] [address]Xnhfxcfx Qn9.2 m[IU]/mLInvalid Interpretation [facility] SystemComment on above:Result Comment: Adult Female Range Follicular phase 2.4 - 12.6 Ovulation phase 14.0 - 95.6 Luteal phase 1.0 - 11.4 Postmenopausal 7.7 - 58.5Performed By: #### [id number] #### [facility] [address] [place], [place] [address]IbJX Quanton 84-45-1551IIP.beta subunit Qn1 m[IU]/mLNormal1-3 [facility] HospitalComment on above:Result Comment: 'F NON < 1 - 3' ' 0.2 - 1 WEEK = 5 TO 50' ' 1 - 2 WEEKS = 50 - 500' ' 2 - 3 WEEKS = 100 - 5000' ' 3 - 4 WEEKS = 500 - 07985' ' 4 - 5 WEEKS = 1000 - 57723' ' 5 - 6 WEEKS = 40898 - 288005' ' 6 - 8 WEEKS = 94809 - 676918' ' 8 - 12 WEEKS = 62832 - 299587'Performed By: #### [id number] #### [facility] [address] [place] [address]KYSEHGMLXJeptrkk By: SYSTEM SYSTEM on 10-32-4367MJP.beta subunit Qn1 m[IU]/mLNormal1 - 3 mIU/mLRemisol ChemComment on above:Result Comment: 'F NON < 1 - 3' ' 0.2 - 1 WEEK = 5 TO 50' ' 1 - 2 WEEKS = 50 - 500' ' 2 - 3 WEEKS = 100 - 5000' ' 3 - 4 WEEKS = 500 - 06584' ' 4 - 5 WEEKS = 1000 - 38907' ' 5 - 6 WEEKS = 85275 - 812765' ' 6 - 8 WEEKS = 09751 - 780760' ' 8 - 12 WEEKS = 15292 - 705052'Progesterone Lvl0.85 ng/mLInvalid Interpretation CodeRemisol ChemComment on above:Result Comment: 'F NON FOLLICULAR = 0.10 - 0.60' 'LUTEAL = 3.00 - 17.5' 'MIDLUTEAL = 3.30 - 18.6' 'POST-MENOPAUSE = 0.10 - 0.40' '-FIRST TRIMESTER = 8.30 - 66.5' 'SECOND TRIMESTER = 18.9 - 66.1' 'THIRD TRIMESTER = 35.8 - 312.4' 'MALES = 0.14 - 2.06'TSH Qn1.77 m[IU]/LNormal0.34 - 5.60 mcIU/mLRemisol Chem Progesteroneon 81-28-0299Skhoovtmbvvg Lvl0.85 ng/mLInvalid Interpretation Code [facility] HospitalComment on above:Result Comment: 'F NON FOLLICULAR = 0.10 - 0.60' 'LUTEAL = 3.00 - 17.5' 'MIDLUTEAL = 3.30 - 18.6' 'POST-MENOPAUSE = 0.10 - 0.40' '-FIRST TRIMESTER = 8.30 - 66.5' 'SECOND TRIMESTER = 18.9 - 66.1' 'THIRD TRIMESTER = 35.8 - 312.4' 'MALES = 0.14 - 2.06'Performed By: #### [id number] #### [facility] [address] [place], [place] [address]EDKzf 07-99-4910GHK Qn1.77 m[IU]/LNormal0.34-5.60[facility] Hospitaler [facility] CenterComment on above:Performed By: #### [id number] #### [facility] [address] [place], [place] [address]AH Transvaginal Non-OBon 09-04-1795LI Transvaginal Non-OBExam Date/Time: 05/13/2024 09:09 EDT Reason [...] Bhatia MD Transcribed by: JURGEN Technologist: [facility] HospitalG Quanton 75-56-1430OJW.beta subunit Qn1 m[IU]/mLNormal1-3[facility] Comment on above:Result Comment: 'F NON < 1 - 3' ' 0.2 - 1 WEEK = 5 TO 50' ' 1 - 2 WEEKS = 50 - 500' ' 2 - 3 WEEKS = 100 - 5000' ' 3 - 4 WEEKS = 500 - 56591' ' 4 - 5 WEEKS = 1000 - 61584' ' 5 - 6 WEEKS = 47275 - 448836' ' 6 - 8 WEEKS = 12271 - 694559' ' 8 - 12 WEEKS = 73120 - 261988'Performed By: #### [id number] #### [facility] [address] [place] [address] 208[address]GRYKOVBQNJvnndwh By: SYSTEM SYSTEM on 71-56-6203NWD.beta subunit Qn1 m[IU]/mLNormal1 - 3 mIU/mLRemisol ChemComment on above:Result Comment: 'F NON < 1 - 3' ' 0.2 - 1 WEEK = 5 TO 50' ' 1 - 2 WEEKS = 50 - 500' ' 2 - 3 WEEKS = 100 - 5000' ' 3 - 4 WEEKS = 500 - 62924' ' 4 - 5 WEEKS = 1000 - 10440' ' 5 - 6 WEEKS = 22818 - 444652' ' 6 - 8 WEEKS = 12044 - 658277' ' 8 - 12 WEEKS = 82864 - 899164'Progesterone Lvl65.01 ng/mLInvalid Interpretation CodeRemisol ChemComment on above:Result Comment: 'F NON FOLLICULAR = 0.10 - 0.60' 'LUTEAL = 3.00 - 17.5' 'MIDLUTEAL = 3.30 - 18.6' 'POST-MENOPAUSE = 0.10 - 0.40' '-FIRST TRIMESTER = 8.30 - 66.5' 'SECOND TRIMESTER = 18.9 - 66.1' 'THIRD TRIMESTER = 35.8 - 312.4' 'MALES = 0.14 - 2.06' Result Verified by DilutionProgesteroneon 73-58-0669Luaitzjpksjk Lvl65.01 ng/mL Invalid Interpretation [facility] SystemComment on above:Result Comment: 'F NON FOLLICULAR = 0.10 - 0.60' 'LUTEAL = 3.00 - 17.5' 'MIDLUTEAL = 3.30 - 18.6' 'POST-MENOPAUSE = 0.10 - 0.40' '-FIRST TRIMESTER = 8.30 - 66.5' 'SECOND TRIMESTER = 18.9 - 66.1' 'THIRD TRIMESTER = 35.8 - 312.4' 'MALES = 0.14 - 2.06' Result Verified by DilutionPerformed By: #### [id number] #### [facility] [address], [place] [address]Oxrzischsxv 46-28-9850I0 [Mass/Vol]84.6 pg/mLInvalid Interpretation [facility] SystemComment on above:Result Comment: Adult Female Range Follicular phase 12.5 - 166.0 Ovulation phase 85.8 - 498.0 Luteal phase 43.8 - 211.0 Postmenopausal <6.0 - 54.7 1st trimester 215.0 - >4300.0 Carolin ECLIA methodology Performed at: [facility] [id number] PhD Randa OchoaPerformed By: #### [id number] #### [facility] [address], [place] [address]GLLBSODMPQlwbqkt By: SYSTEM SYSTEM on [id number] Lvl62.71 ng/mLInvalid Interpretation CodeRemisol ChemComment on above:Result Comment: 'F NON FOLLICULAR = 0.10 - 0.60' 'LUTEAL = 3.00 - 17.5' 'MIDLUTEAL = 3.30 - 18.6' 'POST-MENOPAUSE = 0.10 - 0.40' '-FIRST TRIMESTER = 8.30 - 66.5' 'SECOND TRIMESTER = 18.9 - 66.1' 'THIRD TRIMESTER = 35.8 - 312.4' 'MALES = 0.14 - 2.06' Result Verified by DilutionProgesteroneon [id number] Lvl62.71 ng/mL Invalid Interpretation CodeFisher Western Maryland Hospital CenterComment on above:Result Comment: 'F NON FOLLICULAR = 0.10 - 0.60' 'LUTEAL = 3.00 - 17.5' 'MIDLUTEAL = 3.30 - 18.6' 'POST-MENOPAUSE = 0.10 - 0.40' '-FIRST TRIMESTER = 8.30 - 66.5' 'SECOND TRIMESTER = 18.9 - 66.1' 'THIRD TRIMESTER = 35.8 - 312.4' 'MALES = 0.14 - 2.06' Result Verified by DilutionPerformed By: #### [id number] #### [facility] [address] [place], [place] [address]YH PELVIS TRANSVAGINALon [id number] [address] Ultrasound Report Signed Patient: INDU ST MR#: [id number] : 1995 Acct:[id number] Age/Sex: 28 / F ADM Date: 04/18/24 Loc: US Attending Dr: Jade Ledbetter M.D. Ordering Physician: Jade Ledbetter M.D. Date of Service: 04/18/24 Procedure(s): US pelvis transvaginal Accession Number(s): [id number] cc: CAROLYNE COLLAZO Robert J M.D. [address] [address] Patient Name: INDU ST MRN: [id number] date: 1995 Sex: F Assigned Patient Location: US Current Patient Location: US Accession/Order Number: [id number] Exam Date: 04/18/2024 07:00 Report Date: 04/18/2024 [...] Signed By: 04/18/24 0741 DD/ 0738 TD/TT: Grease Machine Worker:TBHRadiology, Radiologist, MD - 04/18/2024 [place] [address] Ultrasound Report Signed Patient: INDU ST MR#: [id number] : 1995 Acct:[id number] Age/Sex: 28 / F ADM Date: 04/18/24 Loc: US Attending Dr: Jade Ledbetter M.D. Ordering Physician: Jade Ledbetter M.D. Date of Service: 04/18/24 Procedure(s): US pelvis transvaginal Accession Number(s): [id number] cc: CAROLYNE COLLAZO ; Jade Ledbetter M.D. [place] [id number] Patient Name: INDU ST MRN: [id number] date: 1995 Sex: F Assigned Patient Location: US Current Patient Location: US Accession/Order Number: [id number] Exam Date: 04/18/2024 07:00 Report Date: 04/18/2024 [...] M.D. Signed By: 04/18/24 0741 DD/ TD/TT: Grease Machine Worker: [facility]OSPITALHiren HealthcareRadiology Study observation (narrative)NOM HealthcareUS PELVIS TRANSVAGINALOrdered By: Radiologist Radiology on 51-13-5674IFYW NUVETA Work Phone: US PELVIS TRANSVAGINALon [phone] [address] Ultrasound Report Signed Patient: INDU ST MR#: [id number] : 1995 Acct:[id number] Age/Sex: 28 / F ADM Date: 04/16/24 Loc: US Attending Dr: Jade Ledbetter M.D. Ordering Physician: Jade Ledbetter M.D. Date of Service: 04/16/24 Procedure(s): US pelvis transvaginal Accession Number(s): [id number] cc: CAROLYNE COLLAZO Robert J M.D. The [address] [address] Patient Name: INDU ST MRN: [id number] date: 1995 Sex: F Assigned Patient Location: US Current Patient Location: US Accession/Order Number: [id number] Exam Date: 04/16/2024 07:03 Report Date: 04/16/2024 [...] Signed By: 04/16/24 1133 DD/ 1131 TD/TT: Grease Machine Worker:TBHRadiology, Radiologist, - 04/16/2024 The [place] [id number] Ultrasound Report Signed Patient: INDU ST MR#: [id number] : 1995 Acct:[id number] Age/Sex: 28 / F ADM Date: 04/16/24 Loc: US Attending Dr: Jade Ledbetter M.D. Ordering Physician: Jade Ledbetter M.D. Date of Service: 04/16/24 Procedure(s): US pelvis transvaginal Accession Number(s): [id number] cc: CAROLYNE COLLAZO ; Jade Ledbetter M.D. The [place] [address] Patient Name: INDU ST MRN: [id number] date: 1995 Sex: F Assigned Patient Location: US Current Patient Location: US Accession/Order Number: [id number] Exam Date: 04/16/2024 07:03 Report Date: 04/16/2024 [...] Signed By: 04/16/24 1133 DD/ 1131 TD/TT: Grease Machine Worker: DEION HealthcareRadiology Study observation (narrative)DEION HealthcareUS PELVIS TRANSVAGINALOrdered By: Radiologist Radiology on 51-75-9431[facility] Work Phone: US PELVIS TRANSVAGINALon [phone] [address] Ultrasound Report Signed Patient: INDU ST MR#: [id number] : 1995 Acct:[id number] Age/Sex: 28 / F ADM Date: 04/14/24 Loc: US Attending Dr: Jade Ledbetter M.D. Ordering Physician: Jade Ledbetter M.D. Date of Service: 04/14/24 Procedure(s): US pelvis transvaginal Accession Number(s): [id number] cc: CAROLYNE COLLAZO ; Jade Ledbetter M.D. The [address] [address] Patient Name: INDU ST MRN: [id number] date: 1995 Sex: F Assigned Patient Location: US Current Patient Location: US Accession/Order Number: [id number] Exam Date: 04/14/2024 07:00 Report Date: 04/14/2024 [...] Signed By: 04/14/24 0745 DD/ 0742 TD/TT: Grease Machine Worker:TBHRadiology, Radiologist, - 04/14/[address] [address] Ultrasound Report Signed Patient: INDU TS MR#: [id number] : 1995 Acct:[id number] Age/Sex: 28 / F ADM Date: 04/14/24 Loc: US Attending Dr: Jade Ledbetter M.D. Ordering Physician: Jade Ledbetter M.D. Date of Service: 04/14/24 Procedure(s): US pelvis transvaginal Accession Number(s): [id number] cc: CAROLYNE COLLAZO ; Jade Ledbetter M.D. The [place] [id number] Patient Name: INDU ST MRN: [id number] date: 1995 Sex: F Assigned Patient Location: US Current Patient Location: US Accession/Order Number: [id number] Exam Date: 04/14/2024 07:00 Report Date: 04/14/2024 [...] Mckeon M.D. Signed By: 04/14/2445 DD/ TD/TT: Grease Machine Worker: DEION HealthcareRadiology Study observation (narrative)NOMS HealthcareUS PELVIS TRANSVAGINALOrdered By: Radiologist Radiology on 60-27-9058PMKK NUVETA Work Phone: [place] PELVIS TRANSVAGINALon [phone] [address] Ultrasound Report Signed Patient: INDU ST MR#: [id number] : 1995 Acct:[id number] Age/Sex: 28 / F ADM Date: 04/08/24 Loc: US Attending Dr: Jade Ledbetter M.D. Ordering Physician: Jade Ledbetter M.D. Date of Service: 04/08/24 Procedure(s): US pelvis transvaginal Accession Number(s): [id number] cc: CAROLYNE COLLAZO ; Jade Ledbetter M.D. The [place] [id number] Patient Name: INDU ST MRN: [id number] date: 1995 Sex: F Assigned Patient Location: US Current Patient Location: US Accession/Order Number: [id number] Exam Date: 04/08/2024 13:45 Report Date: 04/08/2024 [...] Signed By: 04/08/24 1442 DD/ 1439 TD/TT: Grease Machine Worker:TBHRadiology, Radiologist, - 04/08/2024 [place] [address] Ultrasound Report Signed Patient: INDU ST MR#: [id number] : 1995 Acct:[id number] Age/Sex: 28 / F ADM Date: 04/08/24 Loc: US Attending Dr: Jade Ledbetter M.D. Ordering Physician: Jade Ledbetter M.D. Date of Service: 04/08/24 Procedure(s): US pelvis transvaginal Accession Number(s): [id number] cc: CAROLYNE COLLAZO ; Jade Ledbetter M.D. The [place] [address] Patient Name: INDU ST MRN: [id number] date: 1995 Sex: F Assigned Patient Location: US Current Patient Location: US Accession/Order Number: [id number] Exam Date: 04/08/2024 13:45 Report Date: 04/08/2024 [...] Signed By: 04/08/24 1442 DD/ 1439 TD/TT: Grease Machine Worker: DEION HealthcareRadiology Study observation (narrative)[facility] HealthcareUS PELVIS TRANSVAGINALOrdered By: Radiologist Radiology on 98-10-5453[facility] Work Phone: basic Metabolic Panelon 98-06-8834Qltoeiibhf [Mass/Vol]0.8 mg/dL0.5 - 1.1 mg/dLOhioHealth Doctors Hospital SystemGlucose [Mass/Vol]87 mg/dLOhioHealth Doctors Hospital SystemPotassium [Moles/Vol]4.1 mmol/L3.4 - 5.3 mmol/L [facility] SystemSodium [Moles/Vol]142 mmol/L137 - 147 mmol/LProMedAdena Regional Medical Center SystemUrea nitrogen [Mass/Vol]13 mg/dL4 - 21 mg/dLOhioHealth Doctors Hospital System HBV surface Ag IA Qlon 13-08-3650Ifpeclmoc B Surface AntigenNegativeOhioHealth Doctors Hospital SystemHIV 1+2 Ab+HIV1 p24 Ag IA Qlon 06-29-1056XJR 1&2 AB/AGNon-Reactive [facility] SystemLaboratory - Hematology and Cell countson 51-74-8378CaP5u (Bld) [Mass fraction]5.3 %4.0 - 6.0 %[facility] HealthcareComment on above:ADA RECOMMENDED LIMIT 4.0 - 6.0 ADA THERAPEUTIC TARGET < 7.0 ACTION SUGGESTED > 7.0 Liver panelon 06-57-5114NXN [Catalytic activity/Vol]51 U/L25 - 125 U/LProMedica Health SystemALT No additional P-5'-P [Catalytic activity/Vol]47 U/LAbnormal7 - 35 U/LProMedica Health SystemAST [Catalytic activity/Vol]21 U/L13 - 35 U/L [facility] SystemInterpretation and review of laboratory resultsAbnormal [facility] SystemMLR HEMOGLOBIN A1Con 25-36-4204Jwimwvn [Mass/Vol]105 mg/dLNOVT HealthcareCLINISYNCNo Panel Informationon 02-59-5208US[facility] Rubella immune IgG13.5ProMedAdena Regional Medical Center SystemT. pallidum IgG+IgM IA Ql (S)on 03-14-2024T. pallidum IgG Ql (S)Non-ReactiveProBellevue Hospital SystemType and screenon 60-24-4651Ttw/Rh(D)PositiveProBellevue Hospital SystemANA Individual Abson 83-30-2027Litb-Centro B AbSee Refr ReportNOVT HealthcareComment on above: Performed By: #### [id number] #### [facility] [address] [place] [address]ZWEA JESUS INDIVIDUAL ABSon 20-91-2706Rahwlbdf Ordering Provider: MD Carolyne HutchisonOhioHealth [facility]ering[facility] WRITTEN AUTHORIZATIONon 45-17-3811SWPC WRITTEN AUTHORIZATIONCommentLDS HOSPITAL HealthcareComment on above: Written Authorization Received. Authorization received from ORIGINAL ORDER 02-20-2024 Logged by Valentina Peters Performed at: [address] [id number] PhD Randa Ochoa Original Ordering Provider: MD Carolyne PonceAudrain Medical CenterWRITTEN AUTHORIZATIONon 07-96-3951Psqfenp AuthorizationCommentInvalid Interpretation CodeDunlap Memorial HospitalComment on above:Result Comment: Written Authorization Received. Authorization received from ORIGINAL ORDER 02-20-2024 Logged by Valentina Peters Performed at: [address] [id number] PhD Randa OchoaPerformed By: #### [id number] #### [facility] [address] [place], [place] [address]MEML RF QUANTon 37-74-1441DYQF RHEUMATOID FACTOR:ACNC:PT:SER/PLAS:QN:13.2NINFNOMS HealthcareComment on above:Performed at: [address] [id number] PhD Randa Ochoa Original Ordering Provider: MD Carolyne HutchisonPrisma Health [facility] Quanton 31-63-1795Mtaydxtmyk factor Qn13.2 International_Unit/mLInvalid Interpretation Code<14.0Dunlap Memorial HospitalComment on above:Result Comment: Performed at: [address] [id number] PhD Randa OchoaPerformed By: #### [id number] #### [facility] [address] [place], [place] [address]OMW w/ Auto Diffon 77-80-2712Tfgcyysdg/100 WBC (Bld)0.3 %Normal 0.0-2.0NOMS HealthcareComment on above:Performed By: #### [id number] #### [facility] [address] [place], [place] [address]Tpqexrzcztr distribution width (RBC) [Ratio]14.3 %High10.9-14.2 NOMS HealthcareComment on above:Performed By: #### [id number] #### [facility] [address] [place], [place] [address]Tredcdzhdd (Bld) [Volume fraction]40.4 %Cbbhmv03.0-46.0NOMS HealthcareComment on above:Performed By: #### [id number] #### [facility] [address] [place], [place] [address]Zhrkcjmgykp/100 WBC (Bld)16.1 %Atsojd83.0-50.0N[facility] Healthcare Comment on above:Performed By: #### [id number] #### [facility] [address] [place], [place] [address]Biunbltqqyw/100 WBC (Bld)75.3 %High36.0-75.0NOMS Healthcare Comment on above:Performed By: #### [id number] #### [facility] [address] [place] [address]Boinazch mean volume (Bld) [Entitic vol]8.5 fLNormal6.4-10.8 NOMS HealthcareComment on above:Performed By: #### [id number] #### [facility] [address] [place] [address]Pvocgzflx/Leukocytes Auto (Bld) [Pure # fraction]0.0 E9/LNormal 0.0-0.2FCorey HospitalComment on above:Performed By: #### [id number] #### [facility] [address] [place] [address]Fxszrutqxqw (Bld) [#/Vol]0.0 E9/LNormal0.0-0.5FCorey HospitalComment on above:Performed By: #### [id number] #### [facility] [address] [place] [address]Xfxamjkoful/100 WBC (Bld)0.4 %Normal0.0-8.0Dun[facility] Memorial HospitalComment on above:Performed By: #### [id number] #### [facility] [address] [place] [address]Wywjwhthea (Bld) [Mass/Vol]14.2 g/iZKulowd13.0-16.0[facility] Memorial HospitalComment on above:Performed By: #### [id number] #### [facility] [address] [place] [address]Swhvnzwzpzi (Bld) [#/Vol]1.1 E9/LNormal1.0-4.0Dun[facility] Memorial HospitalComment on above:Performed By: #### [id number] #### [facility] [address] [place] [address]ZVL (RBC) [Entitic mass]30.4 edAjbsav80.0-34.0[facility] Memorial HospitalComment on above:Performed By: #### [id number] #### [facility] [address] [place] [address]SMAN (RBC) [Mass/Vol]35.1 g/dHVvmnuc79.4-36.0[facility] Memorial HospitalComment on above:Performed By: #### [id number] #### [facility] [address] [place] [address]IJA (RBC) [Entitic vol]86.7 bQQphcdc43.0-100.0[facility] Memorial HospitalComment on above:Performed By: #### [id number] #### [facility] [address] [place] [address]Cmypldufk (Bld) [#/Vol]0.5 E9/LNormal0.2-1.0[facility] Memorial HospitalComment on above:Performed By: #### [id number] #### [facility] [address] [place] [address]Avdtnxosxxb (Bld) [#/Vol]5.1 E9/LNormal2.0-7.5FCorey HospitalComment on above:Performed By: #### [id number] #### [facility] [address] [place] [address]Rzlxnejx576.0 E9/WVsgsfe243.0-500.0[facility] Comment on above:Performed By: #### [id number] #### [facility] [address] [place] [address]UTJ (Bld) [#/Vol]4.7 E12/LNormal4.3-5.9[facility] Memorial HospitalComment on above:Performed By: #### [id number] #### [facility] [address] [place] [address]HYQ corrected for nucl RBC Auto (Bld) [#/Vol]6.8 E9/LNormal 4.0-11.0[facility] Memorial HospitalComment on above:Performed By: #### [id number] #### [facility] [address] [place], [place] [address]ZCJMJWBHHBvydaam By: SYSTEM SYSTEM on 64-15-0433Sioeqny [Mass/Vol]4.5 g/dLNormal3.3 - 5.0 gm/dLRemisol ChemAlbumin/Globulin [Mass ratio] 1.6 {ratio}Normal1.1 - 2.2Remisol ChemALP [Catalytic activity/Vol]55 [iU]/d Fhonzs23 - 98 Int._Unit/LRemisol ChemALT No additional P-5'-P [Catalytic activity/Vol]13 [iU]/dNormal6 - 46 Int._Unit/LRemisol ChemAnion gap [Moles/Vol] 14 mmol/LNormal6 - 16 mEq/LRemisol ChemAST [Catalytic activity/Vol]13 [iU]/d Normal5 - 43 Int._Unit/LRemisol ChemBilirubin [Mass/Vol]0.5 mg/dLNormal0.0 - 1.1 mg/dLRemisol ChemCalcium [Mass/Vol]9.3 mg/dLNormal8.9 - 11.1 mg/dLRemisol Chem Chloride [Moles/Vol]103 mmol/FNnepzb689 - 111 mmol/LRemisol ChemCO2 [Moles/Vol] 26 mmol/FIipzir40 - 31 mmol/LRemisol ChemCreatinine [Mass/Vol]0.7 mg/dLNormal0.5 - 1.3 mg/dLRemisol WaendTIA908 mL/min/1.73 d7Mumgyp>=59mL/min/1.73 c1Gsqwuci ChemGlobulin (S) [Mass/Vol]2.9 g/dLNormal1.4 - 4.0 gm/dLRemisol ChemGlucose [Mass/Vol]86 mg/sTCtaipu75 - 199 mg/dLRemisol ChemPotassium [Moles/Vol]4.0 mmol/LNormal3.5 - 5.3 mmol/LRemisol ChemProtein [Mass/Vol]7.4 g/dLNormal6.0 - 7.8 gm/dLRemisol ChemSodium [Moles/Vol]139 mmol/OWnjmbh163 - 145 mmol/LRemisol ChemUrea nitrogen [Mass/Vol]13 mg/dLNormal5 - 21 mg/dLRemisol ChemUrea nitrogen/Creatinine [Mass ratio]19 mg/bfQkyyml01 - 20Remisol ChemCMPon 13-37-4153Fiqoaly [Mass/Vol]4.5 g/dLNormal3.3-5.0[facility] Comment on above:Performed By: #### [id number] #### [facility] [address], [place] [address]Pupzbak/Globulin (S) [Mass conc ratio]1.8Gkyxqh9.1-2.2FCorey HospitalComment on above:Performed By: #### [id number] #### [facility] [address], [place] [address]PKO [Catalytic activity/Vol]55 Int._Unit/UBrdupo44-06VautapDunlap Memorial HospitalComment on above:Performed By: #### [id number] #### [facility] [address] [place], [place] [address]TLM No additional P-5'-P [Catalytic activity/Vol]13 Int._Unit/L Normal6-46Dun[facility] Memorial HospitalComment on above:Performed By: #### [id number] #### [facility] [address] [place] [address]Yjixf gap [Moles/Vol]14 mmol/LNormal6-16[facility] Memorial HospitalComment on above:Performed By: #### [id number] #### [facility] [address], [place] [address]IVE [Catalytic activity/Vol]13 Int._Unit/LNormal5-43Dun[facility] Memorial HospitalComment on above:Performed By: #### [id number] #### [facility] [address], [place] [address]Aforvnhvs [Mass/Vol]0.5 mg/dLNormal0.0-1.1FCorey HospitalComment on above:Performed By: #### [id number] #### [facility] [address] [place], [place] [address]Hjajgxp [Mass/Vol]9.3 mg/dLNormal8.9-11.1FCorey HospitalComment on above:Performed By: #### [id number] #### [facility] [address], [place] [address]Qjghujzz [Moles/Vol]103 mmol/LExekqq186-565YjvlfvDunlap Memorial HospitalComment on above:Performed By: #### [id number] #### [facility] [address] [place], [place] [address]FF4 [Moles/Vol]26 mmol/TKujrjq38-03GezrhcDunlap Memorial Hospital Comment on above:Performed By: #### [id number] #### [facility] [address], [place] [address]Qnnwjjvswm [Mass/Vol]0.7 mg/dLNormal0.5-1.3FCorey HospitalComment on above:Performed By: #### [id number] #### [facility] [address] [place], [place] [address]Venrylrt (S) [Mass/Vol]2.9 g/dLNormal1.4-4.0[facility] Memorial HospitalComment on above:Performed By: #### [id number] #### [facility] [address] [place], [place] [address]Yjkduwb [Mass/Vol]86 mg/yGLiizaj57-424UgcuiqDunlap Memorial HospitalComment on above:Performed By: #### [id number] #### [facility] [address] [place], [place] [address]Efwuacnpc [Moles/Vol]4.0 mmol/LNormal3.5-5.3FCorey HospitalComment on above:Performed By: #### [id number] #### [facility] [address] [place], [place] [address]Yxbegqf [Mass/Vol]7.4 g/dLNormal6.0-7.8[facility] Memorial HospitalComment on above:Performed By: #### [id number] #### [facility] [address] [place], [place] [address]Rahntw [Moles/Vol]139 mmol/GNtrivf798-203GquqgzDunlap Memorial HospitalComment on above:Performed By: #### [id number] #### [facility] [address] [place], [place] [address]Vhnh nitrogen [Mass/Vol]13 mg/dLNormal5-21Dun[facility] Memorial HospitalComment on above:Performed By: #### [id number] #### [facility] [address] [place], [place] [address]Mfxi nitrogen/Creatinine [Mass ratio]19 No VgeooOrybhe00-32 [facility] HospitalComment on above:Performed By: #### [id number] #### [facility] [address] [place] [address]JLST CBC W/ AUTO DIFFon 99-36-0117GQFAFMZTPEJ/100 LEUKOCYTES:NFR:PT:BLD:QN:AUTOMATED COUNT0.4 %0.0 - 8.0 %[facility] EOSINOPHILS:NCNC:PT:BLD:QN:0[facility] BASOPHILS/LEUKOCYTES:NFR.DF:PT:BLD:QN:AUTOMATED JFVEH7RBBESt. [facility]al [facility] ERYTHROCYTE MEAN CORPUSCULAR HEMOGLOBIN CONCENTRATION:MCNC:PT:RBC:QN35.1[facility] ERYTHROCYTE MEAN CORPUSCULAR HEMOGLOBIN:ENTMASS:PT:RBC:QN30.4 pg 27.0 - 34.0 pgSt. [facility]al [facility] ERYTHROCYTE MEAN CORPUSCULAR VOLUME:ENTVOL:PT:RBC:QN:AUTOMATED COUNT86.7 fL80.0 - 100.0 fLSt. [facility] ERYTHROCYTES:NCNC:PT:BLD:QN:AUTOMATED COUNT4.7NOKindred Hospital HEMOGLOBIN:MCNC:PT:BLD:QN:14.2[facility] LEUKOCYTES6.8NOLakeHealth [facility] MONOCYTES:NCNC:PT:BLD:QN:AUTOMATED COUNT0.5[facility] NEUTROPHILS:NCNC:PT:BLD:QN:AUTOMATED COUNT5.1NOMS HealthcareInterpretation and review of laboratory resultsAbnormalNOMS HealthcareLYMPHOCYTES:NCNC:PT:BLD:QN: 1.1NOMS HealthcarePlatelets (Bld) [#/Vol]235 10*3/uLNOMS HealthcareOriginal Ordering Provider: MD Carolyne Barr HealthcareHEMATOLOGYOrdered By: SYSTEM SYSTEM on 23-59-7787Mhphiuoqv/100 WBC (Bld)0.3 %Normal0.0 - 2.0 % Remisol HemeBasophils/Leukocytes Auto (Bld) [Pure # fraction]0.0 E9/LNormal0.0 - 0.2 E9/LRemisol HemeEosinophils (Bld) [#/Vol]0.0 E9/LNormal0.0 - 0.5 E9/LRemisol HemeEosinophils/100 WBC (Bld)0.4 %Normal0.0 - 8.0 %Remisol HemeErythrocyte distribution width (RBC) [Ratio]14.3 %High10.9 - 14.2 %Remisol HemeHematocrit (Bld) [Volume fraction]40.4 %Yxdcwa16.0 - 46.0 %Remisol HemeHemoglobin (Bld) [Mass/Vol]14.2 g/sCHvmhyg21.0 - 16.0 gm/dLRemisol HemeLymphocytes (Bld) [#/Vol] 1.1 E9/LNormal1.0 - 4.0 E9/LRemisol HemeLymphocytes/100 WBC (Bld)16.1 %Normal 14.0 - 50.0 %Remisol HemeMCH (RBC) [Entitic mass]30.4 zaUpujvu80.0 - 34.0 pg Remisol HemeMCHC (RBC) [Mass/Vol]35.1 g/gTGmtafz70.4 - 36.0 gm/dLRemisol HemeMCV (RBC) [Entitic vol]86.7 wROnhbua86.0 - 100.0 fLRemisol HemeMonocytes (Bld) [#/Vol]0.5 E9/LNormal0.2 - 1.0 E9/LRemisol HemeMonocytes/100 WBC (Bld)7.9 % Normal4.0 - 14.0 %Remisol HemeNeutrophils (Bld) [#/Vol]5.1 E9/LNormal2.0 - 7.5 E9/LRemisol HemeNeutrophils/100 WBC (Bld)75.3 %High36.0 - 75.0 %Remisol Heme Jbpfmftr651.0 E9/ZCqpgdq590.0 - 500.0 E9/LRemisol HemePlatelet mean volume (Bld) [Entitic vol]8.5 fLNormal6.4 - 10.8 fLRemisol HemeRBC (Bld) [#/Vol]4.7 E12/L Normal4.3 - 5.9 E12/LRemisol HemeWBC corrected for nucl RBC Auto (Bld) [#/Vol] 6.8 E9/LNormal4.0 - 11.0 E9/LRemisol HemeHEMATOLOGYOrdered By: Mery Lopez on 92-90-6838PRX (Bld) [Velocity]14 mm/hNormal0 - 34 mm/hrMERCY HOSPITAL ARDM[facility] – [place] HemeAutoSSIR catheterization and introduction for sonohysterographyon 30-41-7279[place] [address] Ultrasound Report Signed Patient: INDU ST MR#: [id number] : 1995 Acct:[id number] Age/Sex: 28 / F ADM Date: 02/18/24 Loc: US Attending Dr: Non-Staff Physician Alda Ordering Physician: PhysicianPalmira M.D. Date of Service: 02/18/24 Procedure(s): US Cath for Sonohysterography Accession Number(s): [id number] cc: CAROLYNE COLLAZO ; Physician,Non-Staff Alda [address] [place] [id number] Patient Name: INDU ST MRN: [id number] date: 1995 Sex: F Assigned Patient Location: US Current Patient Location: US Accession/Order Number: [id number] Exam Date: 02/18/2024 14:40 Report Date: 02/18/2024 15:58 At the request of: NON-STAFF PHYSICIAN Procedure: US Cath for Sonohysterography EXAM: US sonohysterography, US Cath for Sonohysterography HISTORY: Procreative Management Testing COMPARISON: None. TECHNIQUE: Informed consent was obtained. Preprocedural ultrasound with measurements of follicles followed by insertion of a 5 Tongan hysterosalpingogram catheter and infusion of 30 cc [...] By: Romy Mckeon M.D. Signed By: 02/18/24 1606 DD/ 1558 TD/TT: Grease Machine Worker:TBHRadiology, Radiologist, - 02/19/2024 [place] [address] Ultrasound Report Signed Patient: INDU ST MR#: [id number] : 1995 Acct:[id number] Age/Sex: 28 / F ADM Date: 02/18/24 Loc: US Attending Dr: Non-Staff Physician Lizama Ordering Physician: Palmira Sarah M.D. Date of Service: 02/18/24 Procedure(s): US Cath for Sonohysterography Accession Number(s): [id number] cc: CAROLYNE COLLAZO ; Physician,Non-Staff Alda [address] [address] Patient Name: INDU ST MRN: [id number] date: 1995 Sex: F Assigned Patient Location: US Current Patient Location: US Accession/Order Number: [id number] Exam Date: 02/18/2024 14:40 Report Date: 02/18/2024 15:58 At the request of: NON-STAFF PHYSICIAN Procedure: US Cath for Sonohysterography EXAM: US sonohysterography, US Cath for Sonohysterography HISTORY: Procreative Management Testing COMPARISON: None. TECHNIQUE: Informed consent was obtained. Preprocedural ultrasound with measurements of follicles followed by insertion of a 5 Tongan hysterosalpingogram catheter and infusion of 30 cc [...] Mckeon M.D. Signed By: 02/18/24 1601 DD/ 1554 TD/TT: Grease Machine Worker: DEION Hartley Panel InformationOrdered By: Radiologist Radiology on 70-21-1600VWNE NUVETA Work Phone: No Panel Informationon 89-52-6439Vvubtnsmm Study observation (narrative)DEION WeirSONOHYSTEROGRAPHYon 91-43-2832M[place] [address] Ultrasound Report Signed Patient: IDNU ST MR#: [id number] : 1995 Acct:[id number] Age/Sex: 28 / F ADM Date: 02/18/24 Loc: US Attending Dr: Non-Staff Physician Alda Ordering Physician: PhysicianNon-Staff Alda Date of Service: 02/18/24 Procedure(s): US sonohysterography Accession Number(s): [id number] cc: CAROLYNE COLLAZO ; Physician,Non-Staff Alda [address] [address] Patient Name: INDU ST MRN: [id number] date: 1995 Sex: F Assigned Patient Location: Current Patient Location: Accession/Order Number: [id number] Exam Date: 02/18/2024 14:40 Report Date: 02/18/2024 15:58 At the request of: NON-STAFF PHYSICIAN Procedure: US sonohysterography EXAM: US sonohysterography, US Cath for Sonohysterography HISTORY: Procreative Management Testing COMPARISON: None. TECHNIQUE: Informed consent was obtained. Preprocedural ultrasound with measurements of follicles followed by insertion of a 5 Tongan hysterosalpingogram catheter and infusion of 30 cc [...] Signed By: 02/18/24 1607 DD/ 1558 TD/TT: Grease Machine Worker:[facility], Radiologist, - 02/19/2024 [place] [address] Ultrasound Report Signed Patient: INDU ST MR#: [id number] : 1995 Acct:[id number] Age/Sex: 28 / F ADM Date: 02/18/24 Loc: US Attending Dr: Non-Staff Physician Alda Ordering Physician: Palmira Sarah M.D. Date of Service: 02/18/24 Procedure(s): US sonohysterography Accession Number(s): [id number] cc: CAROLYNE COLLAZO ; Palmira Sarah M.D. The [address] [address] Patient Name: NIDU ST MRN: [id number] date: 1995 Sex: F Assigned Patient Location: US Current Patient Location: US Accession/Order Number: [id number] Exam Date: 02/18/2024 14:40 Report Date: 02/18/2024 15:58 At the request of: NON-STAFF PHYSICIAN Procedure: US sonohysterography EXAM: US sonohysterography, US Cath for Sonohysterography HISTORY: Procreative Management Testing COMPARISON: None. TECHNIQUE: Informed consent was obtained. Preprocedural ultrasound with measurements of follicles followed by insertion of a 5 Tongan hysterosalpingogram catheter and infusion of 30 cc [...] Signed By: 02/18/24 1601 DD/ 1558 TD/TT: Grease Machine Worker: DEION Vargas Automatedon 72-88-8374QMZ (Bld) [Velocity]14 mm/hNormal 0-34Fisher [facility] Maryland Hospital CenterComment on above:Performed By: #### [id number] #### [facility] [address] [place] [address] 37443dSRJls 83-94-1698vUEW247 mL/min/1.73 i7Kszyqr>=59Fisher [facility] Maryland Hospital CenterComment on above:Performed By: #### [id number] #### [facility] [address] [place], [place] [address]SGW THYROID STIM HORMONEon 19-43-2479JWV Qn1.748 m[IU]/LNOMS HealthcareNo Panel Informationon 56-97-3382PPGWOKMBGAUNO HealthcareTBH PREG QUANT HCGon 49-61-9956BKP QUANTITATIVE<1mIU/mLNOMS HealthcareComment on above:5- 50 0.2-1 WEEK 50-500 1-2 WEEKS 100-5,000 2-3 WEEKS 500-10,000 3-4 WEEKS 1,000-50,000 4-5 WEEKS 10,000-100,000 5-6 WEEKS 15,000-200,000 6-8 WEEKS 10,000-100,000 2-3 MONTHS FL HYSTEROSALPINGOGRAMon 86-69-7789[place] [address] Fluoroscopy Report Signed Patient: INDU ST MR#: [id number] : 1995 Acct:[id number] Age/Sex: 28 / F ADM Date: 12/24/23 Loc: [place] Attending Dr: Uriel Meade D.O. Ordering Physician: Uriel Meade D.O. Date of Service: 12/24/23 Procedure(s): FL Hysterosal cath placement Accession Number(s): [id number] cc: CAROLYNE COLLAZO ; Uriel Meade D.O. The [address] [id number] Patient Name: INDU ST MRN: [id number] date: 1995 Sex: F Assigned Patient Location: DE Current Patient Location: Accession/Order Number: [id number] Exam Date: 12/24/2023 14:38 Report Date: 12/24/2023 [...] Signed By: 12/24/23 1603 DD/ 1600 TD/TT: Grease Machine Worker:TERRYHRadiology, Radiologist, - 12/24/2023 [place] [address] Fluoroscopy Report Signed Patient: INDU ST MR#: [id number] : 1995 Acct:[id number] Age/Sex: 28 / F ADM Date: 12/24/23 Loc: [place] Attending Dr: Uriel Meade D.O. Ordering Physician: Uriel Meade D.O. Date of Service: 12/24/23 Procedure(s): FL Hysterosal cath placement Accession Number(s): [id number] cc: CAROLYNE COLLAZO ; Uriel Meade D.O. The [place] [address] Patient Name: INDU ST MRN: [id number] date: 1995 Sex: F Assigned Patient Location: DE Current Patient Location: Accession/Order Number: [id number] Exam Date: 12/24/2023 14:38 Report Date: 12/24/2023 [...] Signed By: 12/24/23 1603 DD/ 1600 TD/TT: Grease Machine Worker: Talkito HYSTEROSALPINGOGRAMOrdered By: Radiologist Radiology on 34-76-1805FKHN Healthcare Work Phone: [place] HYSTEROSALPINGOGRAPHYon 63-84-4738[place]ab[place] [address] Fluoroscopy Report Signed Patient: INDU ST MR#: [id number] : 1995 Acct:[id number] Age/Sex: 28 / F ADM Date: 12/24/23 Loc: [place] Attending Dr: Uriel Meade D.O. Ordering Physician: Uriel Meade D.O. Date of Service: 12/24/23 Procedure(s): FL hysterosalpingography Accession Number(s): [id number] cc: CAROLYNE COLLAZO ; Uriel Meade D.O. The [place] [address] Patient Name: INDU ST MRN: [id number] date: 1995 Sex: F Assigned Patient Location: DE Current Patient Location: DE Accession/Order Number: [id number] Exam Date: 12/24/2023 14:35 Report Date: 12/24/2023 [...] Signed By: 12/24/23 1519 DD/ 1517 TD/TT: Grease Machine Worker:TBHRadiology, Radiologist, MD - 12/24/2023 [place] [address] Fluoroscopy Report Signed Patient: INDU ST MR#: [id number] : 1995 Acct:[id number] Age/Sex: 28 / F ADM Date: 12/24/23 Loc: [place] Attending Dr: Uriel Meade D.O. Ordering Physician: Uriel Meade D.O. Date of Service: 12/24/23 Procedure(s): FL hysterosalpingography Accession Number(s): [id number] cc: CAROLYNE COLLAZO ; Uriel Meade D.O. The [place] [address] Patient Name: INDU ST MRN: [id number] date: 1995 Sex: F Assigned Patient Location: DE Current Patient Location: DE Accession/Order Number: [id number] Exam Date: 12/24/2023 14:35 Report Date: 12/24/2023 [...] Signed By: 12/24/23 1519 DD/ 16 TD/TT: Grease Machine Worker: [facility] HYSTEROSALPINGOGRAPHYOrdered By: Radiologist Radiology on 22-86-9377IWEXProgress West Hospital Work Phone: No Panel Informationon 41-84-0753Xdviqnquc Study observation (narrative)Progress West HospitalTBH PREG QUANT HCGon 59-11-0493THH QUANTITATIVE<1mIU/mLNOMS HealthcareComment on above:5-50 0.2-1 WEEK 50-500 1-2 WEEKS 100-5,000 2-3 WEEKS 500-10,000 3-4 WEEKS 1,000-50,000 4-5 WEEKS 10,000-100,000 5-6 WEEKS 15,000-200,000 6-8 WEEKS 10,000-100,000 2-3 MONTHS [facility]INSaint [facility] HospitalALL PROGESTERONEon 66-58-7964XZMPAAXQEYSF04.8 ng/mL.[facility] HealthcareComment on above:Follicular phase 0.1 - 0.9 Luteal phase 1.8 - 23.9 Ovulation phase 0.1 - 12.0 First trimester 11.0 - 44.3 Second trimester 25.4 - 83.3 Third trimester 58.7 - 214.0 Postmenopausal 0.0 - 0.1 Performed at: [address] [id number] Senior Accounting Analyst: Don Tolentino PhD, Phone: [phone] [facility] SystemSurgical Pathology Reporton 70-58-7721Ywdisbna Pathology Report[address] [address]- Surgical Pathology Report Collected Date/Time: 10/15/2023 09:32 [...] is entirely submitted in one cassette. (DC) DC:[facility] Microscopic Description A-C: Microscopic examination performed unless gross only specified. The use of one or more reagents in the above tests is regulated as an analyte specific reagent (ASR). The test or tests are ordered following initial H&E microscopic examination. The performance characteristics were determined by the [facility]. They have not been cleared or approved by the US Food and Drug Administration. The FDA has determined that such clearance or approval is not necessary. These tests are used for clinical purposes. They should not be regarded as investigational or for research. Appropriate positive and negative controls are performed and are acceptable. [facility] City HospitalComment on above:Performed By: #### [id number] #### [facility] [address] [place] [address]Fxrz OR Intraoperative Recordon 59-93-2690Uhhj OR Intraoperative RecordMain OR Intraoperative Record IntraOp Document Type FT Summary Primary Physician: Alex Knutson MD Finalized Date/Time: 10/16/23 12:11:53 Pt. Name: INDU ST./Sex: 1995 Female Med Rec #: [id number] Physician: Alex Knutson MD Financial #: [id number] Pt. Type: O Room/Bed: / Admit/Disch: 10/15/23 [...] RN, Promise Willis Role Performed Anesthesiologist of Traffic Signal Supervisor Maintenance - Primary Scrub - Primary Record Time [...] and tissue Entry 1 Skin Integrity Intact, [place], Warm, & Skin Abnormality No Dry Outcomes [...] for signs and symptom (more content not included)...NormalDunlap Memorial HospitalB hCG Qualon 05-85-3820Gzev HCG ( test) QlNegativeNormalDunlap Memorial HospitalComment on above:Performed By: #### [id number] #### [facility] [address] [place], [place] [address]Fbkuuhavp Instructionson 60-32-8365Lnhitzqxa Instructions Discharge Instructions INDU ST :1995 Visit [...] weeks Comments: Call for any problems. Where: [address] [place] [address], [address] [place] [phone] Business (1) Medications What How Much When [...] as instructed. MEDICATIONS Yo (more content not included)...[facility] HospitalComment on above:Result Comment: Electronically Signed By: Mery Crocker RN\.seble\Date and Time Signed: 10/15/23 09:50 CAROLTEKita 31-03-8575BgdqtdfskwbnvckucowcmfnbebXVO Patient: INDU ST Age: 28 years Sex: [...] Daily, # 527 gm, Refills(s) 5, Pharmacy: [facility] #[id number], 167, cm, 09/13/23 14:57:00 EDT, Height/Length Dosing, 48.9, kg, 09/13/23 14:57:00 EDT, Weight Dosing Pantoprazole [address] Tab: 40 mg = 1 tab(s), Oral, Daily, # 30 tab(s), Refills(s) 4, Pharmacy: [facility] #75453, 167, cm, 09/13/23 14:57:00 EDT, Height/Length Dosing, [...] follow in GI clinic in 1-2 after dischargeFostoria City HospitalComment on above:Other Comment: Missing Attachment - attachment storage system not supported [id number] Can be viewed in source system Missing Attachment - attachment storage system not supported [id number] Can be viewed in source systemMissing Attachment - attachment storage system not supported [id number] Can be viewed in source systemMissing Attachment - attachment storage system not supported [id number] Can be viewed in source systemMissing Attachment - attachment storage system not supported [id number] Can be viewed in source systemMissing Attachment - attachment storage system not supported [id number] Can be viewed in source systemMain OR PACU I Recordon 17-29-1695Lhxz OR PACU I RecordMain OR PACU I Record PACU Phase I Document Type FT Summary Primary Physician: Alex Knutson MD Finalized Date/Time: 10/15/23 10:19:29 Pt. Name: ALMA ROSAINDU/Sex: 1995 Female Med Rec #: [id number] Physician: Alex Knutson MD Financial #: [id number] Pt. Type: O Room/Bed: / Admit/Disch: 10/15/23 [...] Signatures Signed By: Mery Crocker RN 10/15/23 10:19Fostoria City HospitalMain OR Preoperative Recordon 78-32-7676Wopl OR Preoperative RecordMain OR Preoperative Record Holding Area Document Type FT Summary Primary Physician: Alex Knutson MD Finalized Date/Time: 10/15/23 07:13:13 Pt. Name: ALMA ROSAJANUSZINDU Raudel/Sex: 1995 Female Med Rec #: [id number] Physician: Alex Knutson MD Financial #: [id number] Pt. Type: O Room/Bed: / Admit/Disch: 10/15/23 [...] Signatures Signed By: Ofe Atkins RN 10/15/23 07:13NormCoshocton Regional Medical CenterEROLOGY Ordered By: Germaine Sauer on 13-74-0337Gjby HCG ( test) QlNegative (10/15/23 7:55 AM)[facility] Man SeroAmbulatory Visit Summaryon 09-13-2023 Ambulatory Visit [...] Visceral hypersensitivity syndrome Refills: 4 Pickup at [facility] #67647 New polyethylene glycol 3350 (Miralax 3350 17 gram packet) 17 Gram By Mouth Every day Weight loss Nausea and vomiting Heartburn Bipolar disorder Stress- related physiological response affecting medical condition Visceral hypersensitivity syndrome Refills: 5 Pickup at [facility] #04946 Unchanged alprazolam (Xanax 0.5 mg Tab) 1 [...] prescribing physicianif questions or concerns Pharmacy Information [facility] #20721: [address], [place] [phone] Allergies No Known Medication Allergies Problems Ongoing [...] you for choosing us for your care. [facility] HospitalGastroenterology Office/Clinic Noteon 04-26-0618Urglgxslhnverldg Office/Clinic NoteGastroenterology Office/Clinic Note Chief Complaint ref [...] Daily, # 30 tab(s), Refills(s) 4, Pharmacy: [facility] #23747, 167, cm, 09/13/23 14:57:00 EDT, Height/Length Dosing, 48.9, kg, 09/13/23 14:57:00 EDT, Weight Dosing polyethylene glycol 3350, 17 gm, Oral, Daily, # 527 gm, Refills(s) 5, Pharmacy: [facility] #85403, 167, cm, 09/13/23 14:57:00 EDT, Height/Length Dosing, 48.9, kg, 09/13/23 14:57:00 EDT, Weight Dosing Colonoscopy (Hospital Procedure) EGD Endoscopy (Hospital Procedure) 2. Nausea and vomiting (R11.2: Nausea with vomiting, unspecified) Ordered: pantoprazole, 40 mg = 1 tab(s), Oral, Daily, # 30 tab(s), Refills(s) 4, Pharmacy: [facility] #[id number], 167, cm, 09/13/23 14:57:00 EDT, Height/Length Dosing, 48.9, kg, 09/13/23 14:57:00 EDT, Weight Dosing polyethylene glycol 3350, 17 gm, Oral, Daily, # 527 gm, Refills(s) 5, Pharmacy: [facility] #50729, 167, cm, 09/13/23 14:57:00 EDT, Height/Length Dosing, 48.9, kg, 09/13/23 14:57:00 EDT, Weight Dosing Colonoscopy (Hospital Procedure) EGD Endoscopy (Hospital Procedure) 3. Heartburn (R12: Heartburn) Ordered: pantoprazole, 40 mg = 1 tab(s), Oral, Daily, # 30 tab(s), Refills(s) 4, Pharmacy: [facility] #95882, 167, cm, 09/13/23 14:57:00 EDT, Height/Length Dosing, 48.9, kg, 09/13/23 14:57:00 EDT, Weight Dosing polyethylene glycol 3350, 17 gm, Oral, Daily, # 527 gm, Refills(s) 5, Pharmacy: [facility] #17325, 167, cm, 09/13/23 14:57:00 EDT, Height/Length Dosing, 48.9, kg, 09/13/23 14:57:00 EDT, Weight Dosing Colonoscopy (Hospital Procedure) EGD Endoscopy (Hospital Procedure) 4. Bipolar disorder (F31.9: Bipolar disorder, unspecified) Ordered: pantoprazole, 40 mg (more content not included)...[facility] City HospitalComment on above:Result Comment: Electronically Signed By: Zenia ELLISON, Alex Kapoor.br\Date and Time Signed: 09/12/2414:22 CAROLTCNPLeila 09-48-3528ILIW Telephone (ENDOMN) INDU ST ([id number]) 1995 F Date Time Provider Department 08/14/23 KARINA VINCENT During your visit today, we recorded the following information about you: Twyla Caraballo MA 08/14/2023 11:09 AM Signed Received MRI results completed 08/02/2023, scanned to chart Twyla Caraballo Astrophysics Professor II Endocrinology AND Metabolism [facility] F20 AND X20 Allergies As of [...] (None) Encounter Status:Closed by TWYLA CARABALLO on 08/14/23[facility] Pituitary and Sella turcica WO and W contrast Cortes 94-59-4115G[address] [address] Magnetic Resonance Report Signed Patient: INDU ST MR#: [id number] : 1995 Acct:[id number] Age/Sex: 27 / F ADM Date: 08/02/23 Loc: MRI Attending Dr: Non-Staff Physician MDior Ordering Physician: PhysicianNon-Staff Alda Date of Service: 08/02/23 Procedure(s): MR pituitary wo/w con Accession Number(s): [id number] cc: CAROLYNE COLLAZO ; Physician,Non-Staff Alda [address] [address] Patient Name: INDU ST MRN: [id number] date: 1995 Sex: F Assigned Patient Location: MRI Current Patient Location: Accession/Order Number: [id number] Exam Date: 08/02/2023 14:35 Report Date: 08/04/2023 [...] M.D. Signed By: 08/04/232322 DD/ 19 TD/TT: Grease Machine Worker:TBHRadiology, Radiologist, - 08/04/2023 [place] [address] Magnetic Resonance Report Signed Patient: INDU ST MR#: [id number] : 1995 Acct:[id number] Age/Sex: 27 / F ADM Date: 08/02/23 Loc: MRI Attending Dr: Non-Staff Physician Lizama Ordering Physician: Palimra Sarah M.D. Date of Service: 08/02/23 Procedure(s): MR pituitary wo/w con Accession Number(s): [id number] cc: CAROLYNE COLLAZO ; Physician,Non-Staff Alda The [place] [id number] Patient Name: INDU ST MRN: [facility]:[id number] date: 1995 Sex: F Assigned Patient Location: MRI Current Patient Location: Accession/Order Number: [id number] Exam Date: 08/02/2023 14:35 Report Date: 08/04/2023 [...] M.D. Signed By: 08/04/232322 DD/ 19 TD/TT: Grease Machine Worker: DEION [facility] Arms HospitalRadiology Study observation (narrative)[facility] Pituitary and Sella turcica WO and W contrast IVOrdered By: Radiologist Radiology on 30-28-6571NWGOProgress West Hospital Work Phone: cbc W Auto Differential panel (Bld)on 07-20-2023 Basophils (Bld) [#/Vol]0.03 10*3/[facility] Basophils/100 WBC (Bld)0.3 %0.0 - 2.0 %[facility] Eosinophils (Bld) [#/Vol]0.00 10*3/uLSumma Health Wadsworth - Rittman Medical Center Eosinophils/100 WBC (Bld)0.0 %0.0 - 6.0 %[facility] Erythrocyte distribution width (RBC) [Ratio]14.5 %11.5 - 14.5 %[facility] Medical CenterHematocrit (Bld) [Volume fraction]39.1 %36.0 - 46.0 % [facility] CenterHemoglobin (Bld) [Mass/Vol]13.5 g/dL12.0 - 16.0 g/dLUnHenry County HospitalImcooper county memorial hospital granulocytes (Bld) [#/Vol]0.03 10*3/[facility] granulocytes/100 WBC (Bld)0.3 % 0.0 - 0.9 %[facility] Medical CenterComment on above:Immature Granulocyte Count (IG) includes promyelocytes, myelocytes and metamyelocytes but does not include bands. Percent differential counts (%) should be interpreted in the context of the absolute cell counts (cells/UL).Interpretation and review of laboratory resultsAbnormalUniSelect Medical Specialty Hospital - Cincinnati NorthLymphocytes (Bld) [#/Vol]0.98 10*3/uLLowUnHenry County HospitalLymphocytes/100 WBC (Bld) 8.5 %13.0 - 44.0 %[facility] HospitalH (RBC) [Entitic mass]28.7 pg26.0 - 34.0 pgUnSCCI Hospital LimaHC (RBC) [Mass/Vol]34.5 g/dL 32.0 - 36.0 g/dLMercy HospitalV (RBC) [Entitic vol]83 fL80 - 100 fLUniSelect Medical Specialty Hospital - Cincinnati NorthMonocytes (Bld) [#/Vol]0.13 10*3/uL [facility] CenterMonocytes/100 WBC (Bld)1.1 %2.0 - 10.0 % [facility] Medical CenterNeutrophils (Bld) [#/Vol]10.32 10*3/uLHigh [facility] Medical CenterComment on above:Percent differential counts (%) should be interpreted in the context of the absolute cell counts (cells/uL). Neutrophils/100 WBC (Bld)89.8 %40.0 - 80.0 %[facility] Nucleated RBC/100 WBC (Bld) [Ratio]0.0 %[facility] Platelets (Bld) [#/Vol]290 10*3/[facility] CenterRBC (Bld) [#/Vol]4.71 10*6/[facility] Medical CenterWBC (Bld) [#/Vol]11.5 10*3/[facility]red Hospital DaytonUnHenry County Hospital Basophils (Bld) [#/Vol]0.03 x10*3/uLNormal0.00-0.10[facility]aug[facility] Medical CenterComment on above:Performed By: #### 21809-9 #### JIMENA Mark ([id number]) [facility] ([facility]) [address] [place] [address] 30216Vecwlzrsf/100 WBC (Bld)0.3 %Normal0.0-2.0UnSt. Anthony's HospitalComment on above:Performed By: #### 64177-6 #### JIMENA Mark ([id number]) [facility] ([facility]) [address] [place] [address] 49696Rssxyhmemjh (Bld) [#/Vol]0.00 x10*3/uLNormal0.00-0.70[facility]aug[facility] Medical CenterComment on above:Performed By: #### 09237-3 #### JIMENA Mark ([id number]) [facility] ([facility]) [address] [place] [address] 37442Szpmgntvtie/100 WBC (Bld)0.0 %Normal0.0-6.0UnSt. Anthony's HospitalComment on above:Performed By: #### 51305-5 #### JIMENA Mark ([id number]) [facility] ([facility]) [address] [place] [address] 49328Ssedbudpard distribution width (RBC) [Ratio]14.5 %Normal 11.5-14.5UnSt. Anthony's HospitalComment on above:Performed By: #### 25866-2 #### JIMENA Mark ([id number]) [facility] ([facility]) [address] [place] [address] 50961Iwfkbvtbwl (Bld) [Volume fraction]39.1 %Jjedli95.0-46.0 [facility]aug[facility] Medical CenterComment on above:Performed By: #### 44112-7 #### JIMENA Mark ([id number]) [facility] ([facility]) [address] [place] [address] 84934Hdxmmktyna (Bld) [Mass/Vol]13.5 g/mWLjvkcz88.0-16.0UnSt. Anthony's HospitalComment on above:Performed By: #### 00158-0 #### JIMENA Mark ([id number]) [facility] ([facility]) [address] [place] [address] 11567Qovgahpk granulocytes (Bld) [#/Vol]0.03 x10*3/uLNormal0.00-0.70 [facility]aug[facility] Medical CenterComment on above:Performed By: #### 28652-4 #### JIMENA Mark ([id number]) [facility] ([facility]) [address] [place] [address] 39592Mtkntyfq granulocytes/100 WBC (Bld)0.3 %Normal0.0-0.9UnSt. Anthony's HospitalComment on above:Result Comment: Immature Granulocyte Count (IG) includes promyelocytes, myelocytes and metamyelocytes but does not include bands. Percent differential counts (%) should be interpreted in the context of the absolute cell counts (cells/UL).Performed By: #### 63959-4 #### JIMENA Mark ([id number]) [facility] ([facility]) [address] [place], [place] [address]Lymphocytes (Bld) [#/Vol]0.98 x10*3/uLLow1.20-4.80UnSt. Anthony's HospitalComment on above:Performed By: #### 96018-7 #### JIMENA Mark ([id number]) [facility] ([facility]) [address] [place], [place] [address]Lymphocytes/100 WBC (Bld)8.5 %Dpauxa02.0-44.0UnSt. Anthony's HospitalComment on above:Performed By: #### 04673-6 #### JIMENA Mark ([id number]) [facility] ([facility]) [address] [place] [address] (RBC) [Entitic mass]28.7 poSqkcxy74.0-34.0UnSt. Anthony's HospitalComment on above:Performed By: #### 26947-6 #### JIMENA Mark ([id number]) [facility] ([facility]) [address] [place], [place] [address]MCHC (RBC) [Mass/Vol]34.5 g/sBGdpnnh34.0-36.0UnSt. Anthony's HospitalComment on above:Performed By: #### 91033-8 #### JIMENA Mark ([id number]) [facility] ([facility]) [address] [place], [place] [address]V (RBC) [Entitic vol]83 oMVuuyxz32-916ZqjbcxwnwtSt. Anthony's HospitalComment on above:Performed By: #### 16064-4 #### JIMENA Mark ([id number]) [facility] ([facility]) [address] [place] [address] 17659Tlxosuxia (Bld) [#/Vol]0.13 x10*3/uLNormal0.10-1.00UnSt. Anthony's HospitalComment on above:Performed By: #### 87628-8 #### JIMENA Mark ([id number]) [facility] ([facility]) [address] [place] [address] 04518Pqxzrawqt/100 WBC (Bld)1.1 %Normal2.0-10.0UnSt. Anthony's HospitalComment on above:Performed By: #### 02148-3 #### JIMENA Mark ([id number]) [facility] ([facility]) [address] [place] [address] 20988Mnpgwrgurpu (Bld) [#/Vol]10.32 x10*3/uLHigh1.20-7.70UnSt. Anthony's HospitalComment on above:Result Comment: Percent differential counts (%) should be interpreted in the context of the absolute cell counts (cells/uL).Performed By: #### 88694-6 #### JIMENA Mark ([id number]) [facility] ([facility]) [address] [place] [address] 25653Tixokxdttnn/100 WBC (Bld)89.8 %Hcjgwn83.0-80.0UnSt. Anthony's HospitalComment on above:Performed By: #### 66511-0 #### JIMENA Mark ([id number]) [facility] ([facility]) [address] [place] [address] 30498Lcqsvbgcj RBC/100 WBC (Bld) [Ratio]0.0 /100 WBCsNormal0.0-0.0 [facility] Medical CenterComment on above:Performed By: #### 43539-5 #### JIMENA Mark ([id number]) [facility] ([facility]) [address] [place] [address] 97446Pbldpeqbe (Bld) [#/Vol]290 x10*3/bKYzasxw161-647KshwukgfufSt. Anthony's HospitalComment on above:Performed By: #### 35998-6 #### JIMENA Mark ([id number]) [facility] ([facility]) [address] [place] [address]BGC (Bld) [#/Vol]4.71 x10*6/uLNormal4.00-5.20UnSt. Anthony's HospitalComment on above:Performed By: #### 70656-6 #### JIMENA Mark ([id number]) [facility] ([facility]) [address], [place] [address]PPS (Bld) [#/Vol]11.5 x10*3/uLHigh4.4-11.3UnSt. Anthony's HospitalComment on above:Performed By: #### 67794-1 #### JIMENA Mark ([id number]) [facility] ([facility] [facility] [address], [place] [address]BR CHEST ABDOMEN PELVIS W IV CONTRASTon [id number] CHEST ABDOMEN PELVIS W IV CONTRASTInterpreted By: Mag Santiago, STUDY: CT CHEST ABDOMEN PELVIS W IV CONTRAST; 07/20/2023 5:39 pm INDICATION: Signs/Symptoms:Persistent vomiting, epigastric pain in the chest.. COMPARISON: Chest x-ray 07/20/2023. ACCESSION NUMBER(S): [id number] ORDERING CLINICIAN: ABIODUN OCHOA TECHNIQUE: Axial CT [...] Mag Santiago 07/20/2023 6:51 PM Dictation workstation: [id number] Health Miami Valley Hospital NorthCT Chest and Abdomen and Pelvis W contrast Cortes 90-08-0003GNRTT: 1. No consolidation or pleural effusion. 2. [...] Mag Santiago 07/20/2023 6:51 PM Dictation workstation: [id number] By: Mag Santiago, STUDY: CT CHEST ABDOMEN PELVIS W IV CONTRAST; 07/20/2023 5:39 pm INDICATION: Signs/Symptoms:Persistent vomiting, epigastric pain in the chest.. COMPARISON: Chest x-ray 07/20/2023. ACCESSION NUMBER(S): [id number] ORDERING CLINICIAN: ABIODUN OCHOA TECHNIQUE: Axial CT [...] chest.. COMPARISON: Chest x-ray 07/20/2023. ACCESSION NUMBER(S): [id number] ORDERING CLINICIAN: ABIODUN OCHOA TECHNIQUE: Axial CT [...] Mag Santiago 07/20/2023 6:51 PM Dictation workstation: [id number] [facility] Work Phone: Radiology Study observation (narrative)[facility] Work Phone: CT Chest and Abdomen and Pelvis W contrast IVOrdered By: Mag Santiago on 71-57-2179TzozqsgywcHenry County Hospital Work Phone: Choriogonadotropin.beta subuniton 94-95-6896YOG.beta subunit Qnm[IU]/mLNormal<5UnSt. Anthony's HospitalComment on above:Order Comment: Total HCG measurement is performed using the Jade Saleem Access Immunoassay which detects intact HCG and free beta HCG subunit. This test is not indicated for use as a tumor marker. HCG testing is performed using a different test methodology at [facility] than other [facility]. Direct result comparison should only be made within the same method.Performed By: #### 36890-9 #### JIMENA Mark ([id number]) [facility] ([facility] [address] [place] [address] 72949Yfrgsuxcnzity metabolic 2000 panelon 62-12-3321Lpyixtq BCP dye [Mass/Vol]4.7 g/dL3.4 - 5.0 g/dLUnHenry County HospitalALP [Catalytic activity/Vol]47 U/L33 - 110 U/[facility] HospitalALT With P-5'-P [Catalytic activity/Vol]14 U/L7 - 45 U/[facility] HospitalComment on above:Patients treated with Sulfasalazine may generate falsely decreased results for ALT.Anion gap [Moles/Vol]18 mmol/L10 - 20 mmol/[facility] HospitalAST With P-5'-P [Catalytic activity/Vol]15 U/L9 - 39 U/[facility] HospitalBilirubin [Mass/Vol]0.6 mg/dL0.0 - 1.2 mg/dLUnHenry County HospitalCalcium [Mass/Vol]9.8 mg/dL8.6 - 10.3 mg/dLUnHenry County HospitalChloride [Moles/Vol]105 mmol/L98 - 107 mmol/[facility] HospitalCO2 [Moles/Vol]19 mmol/LLow21 - 32 mmol/[facility] HospitalCreatinine [Mass/Vol]0.77 mg/dL0.50 - 1.05 mg/dLUnHenry County HospitaleGFR- PINFUniSelect Medical Specialty Hospital - Cincinnati NorthComment on above:Calculations of estimated GFR are performed using the 2020 CKD-EPI Study Refit equation without therace variable for the IDMS-Traceable creatinine methods. https://jasn.asnjournals.org/content/early/ASN.6481040062 Glucose [Mass/Vol]147 mg/yNCnmq60 - 99 mg/dLUnHenry County Hospital Interpretation and review of laboratory resultsAbnormalUniSelect Medical Specialty Hospital - Cincinnati NorthPotassium [Moles/Vol]3.8 mmol/L3.5 - 5.3 mmol/[facility] HospitalProtein [Mass/Vol]7.3 g/dL6.4 - 8.2 g/dLUnHenry County HospitalSodium [Moles/Vol]138 mmol/L136 - 145 mmol/[facility] HospitalUrea nitrogen [Mass/Vol]15 mg/dL6 - 23 mg/dLUnHenry County HospitalUnHenry County HospitalAlbumin BCP dye [Mass/Vol]4.7 g/dL Normal3.4-5.0UnSt. Anthony's HospitalComment on above: Performed By: #### 23415-1 #### JIMENA Mark ([id number]) [facility] ([facility]) [address] [place] [address] 96991ZRT [Catalytic activity/Vol]47 U/MPqhxzh49-504KakenfpphxSt. Anthony's HospitalComment on above:Performed By: #### 70680-4 #### JIMENA Mark ([id number]) [facility] ([facility]) [address] [place] [address] [phone] With P-5'-P [Catalytic activity/Vol]14 U/LNormal7-45 [facility]auga Medical CenterComment on above:Result Comment: Patients treated with Sulfasalazine may generate falsely decreased results for ALT.Performed By: #### 79776-8 #### JIMENA Mark ([id number]) [facility] ([facility]) [address] [place] [address] 77229Iijqo gap [Moles/Vol]18 mmol/LIcsjyr31-00JosaqrncehSt. Anthony's HospitalComment on above:Performed By: #### 93842-3 #### JIMENA Mark ([id number]) [facility] ([facility]) [address] [place] [address] [phone] With P-5'-P [Catalytic activity/Vol]15 U/LNormal9-39 [facility]auga Medical CenterComment on above:Performed By: #### 81683-2 #### JIMENA Mark ([id number]) [facility] ([facility]) [address] [place] [address] [phone] [Mass/Vol]0.6 mg/dLNormal0.0-1.2UnSt. Anthony's HospitalComment on above:Performed By: #### 46077-3 #### JIMENA Mark ([id number]) [facility] ([facility]) [address] [place] [address] 81014Cjepofg [Mass/Vol]9.8 mg/dLNormal8.6-10.3UnSt. Anthony's HospitalComment on above:Performed By: #### 45568-0 #### JIMENA Mark ([id number]) [facility] ([facility]) [address] [place] [address] 51996Rkcypiyw [Moles/Vol]105 mmol/SNnquth05-407NccsjlifwiSt. Anthony's HospitalComment on above:Performed By: #### 27710-5 #### JIMENA Mark ([id number]) [facility] ([facility]) [address] [place] [address], [place] [address]JJ2 [Moles/Vol]19 mmol/ODuq90-50KpbecmbdvhSt. Anthony's HospitalComment on above:Performed By: #### 93401-9 #### JIMENA Mark ([id number]) [facility] ([facility]) [address] [place] [address] 82616Ellmcytnvh [Mass/Vol]0.77 mg/dLNormal0.50-1.05UnSt. Anthony's HospitalComment on above:Performed By: #### 95062-6 #### JIMENA Mark ([id number]) [facility] ([facility]) [address] [place] [address] 51038LGJ/1.73 sq M.predicted MDRD (S/P/Bld) [Vol rate/Area] mL/min/{1.73_m2}Normal>60UnSt. Anthony's HospitalComment on above:Result Comment: Calculations of estimated GFR are performed using the 2020 CKD-EPI Study Refit equation without the race variable for the IDMS-Traceable creatinine methods. https://jasn.asnjournals.org/content/early/ASN.3007148521Sujniecop By: #### 60819-1 #### JIMENA Mark ([id number]) [facility] ([facility]) [address] [place] [address] 78163Brwrmil [Mass/Vol]147 mg/cVWone01-66GplcrrrkgmSt. Anthony's HospitalComment on above:Performed By: #### 53868-0 #### JIMENA Mark ([id number]) [facility] ([facility]) [address] [place] [address] 87557Gilgbzafe [Moles/Vol]3.8 mmol/LNormal3.5-5.3UnSt. Anthony's HospitalComment on above:Performed By: #### 75441-1 #### JIMENA Mark ([id number]) [facility] ([facility]) [address] [place] [address] 88975Ffqmich [Mass/Vol]7.3 g/dLNormal6.4-8.2UnSt. Anthony's HospitalComment on above:Performed By: #### 89664-7 #### JIMENA Mark ([id number]) [facility] ([facility]) [address] [place] [address] 52274Vwalhk [Moles/Vol]138 mmol/YRyvydh049-718ZpyykedhwoUniversity Hospitals Geauga Medical CenterComment on above:Performed By: #### 80783-5 #### JIMENA Mark ([id number]) [facility] ([facility]) [address] [place] [address] 70817Fird nitrogen [Mass/Vol]15 mg/dLNormal6-23[facility] Geauga Medical CenterComment on above:Performed By: #### 50471-6 #### JIMENA Mark ([id number]) [facility] ([facility]) [address] [place] [address] [phone] SCREEN,URINEon 04-74-1757Jqogzxttntzh Screen Ql (U) NegativeNormalPresumptive NegativeUniversity Hospitals Geauga Medical Center Comment on above:Order Comment: Drug screen results are presumptive and should not be used to assess compliance with prescribed medication. Contact the performing [facility] laboratory to add-on definitive confirmatory testing [...] and propranolol.Performed By: #### DRUG3 #### JIMENA Mrak ([id number]) [facility] ([facility]) [address] [place] [address] [phone] Screen Ql (U)NegativeNormalPresumptive Negative [facility] Medical CenterComment on above:Order Comment: Drug screen results are presumptive and should not be used to assess compliance with prescribed medication. Contact the performing [facility] laboratory to add-on definitive confirmatory testing [...] NG/MLPerformed By: #### DRUG3 #### JIMENA Mark ([id number]) [facility] ([facility]) [address] [place] [address] [phone] Ql (U)NegativeNormalPresunm carrie tingley hospitaltive Negative [facility] Medical CenterComment on above:Order Comment: Drug screen results are presumptive and should not be used to assess compliance with prescribed medication. Contact the performing [facility] laboratory to add-on definitive confirmatory testing [...] NG/MLPerformed By: #### DRUG3 #### JIMENA Mark ([id number]) [facility] ([facility]) [address] [place] [address] [phone] Screen Ql (U)NegativeNormalPresumptive Negative [facility] Medical CenterComment on above:Order Comment: Drug screen results are presumptive and should not be used to assess compliance with prescribed medication. Contact the performing [facility] laboratory to add-on definitive confirmatory testing [...] NG/MLPerformed By: #### DRUG3 #### JIMENA Mark ([id number]) [facility] ([facility]) [address] [place] [address] [phone] Screen Ql (U)PositiveAbnormalPresumptive Negative [facility] Medical CenterComment on above:Order Comment: Drug screen results are presumptive and should not be used to assess compliance with prescribed medication. Contact the performing [facility] laboratory to add-on definitive confirmatory testing [...] NG/MLPerformed By: #### DRUG3 #### JIMENA Mark ([id number]) [facility] ([facility]) [address] [place] [address] [phone]+Norfentanyl Screen Ql (U)NegativeNormalPresumptive NegativeUniversity Hospitals Geauga Medical CenterComment on above:Order Comment: Drug screen results are presumptive and should not be used to assess compliance with prescribed medication. Contact the performing [facility] laboratory to add-on definitive confirmatory testing [...] NG/MLPerformed By: #### DRUG3 #### JIMENA Mark ([id number]) [facility] ([facility]) [address] [place] [address] 93071Qabbnwnxr Screen Ql (U)NegativeNormalPresumptive Negative [facility] Medical CenterComment on above:Order Comment: Drug screen results are presumptive and should not be used to assess compliance with prescribed medication. Contact the performing [facility] laboratory to add-on definitive confirmatory testing [...] Comment: CUTOFF LEVEL: 150 NG/ML The metabolite V-mugta-nillsasyqmqrck (LAAM) is not detected by this method in concentrations that would be found in the urine of patients on LAAM therapy.Performed By: #### DRUG3 #### JIMENA Mark ([id number]) [facility] ([facility]) [address] [place] [address] [phone] Screen Ql (U)NegativeNormalPresumptive Negative [facility] Medical CenterComment on above:Order Comment: Drug screen results are presumptive and should not be used to assess compliance with prescribed medication. Contact the performing [facility] laboratory to add-on definitive confirmatory testing [...] result).Performed By: #### DRUG3 #### JIMENA Mark ([id number]) [facility] ([facility]) [address] [place] [address] [phone]+oxyMORphone Screen Ql (U)NegativeNormalPresumptive NegativeUniversity Hospitals Geauga Medical CenterComment on above:Order Comment: Drug screen results are presumptive and should not be used to assess compliance with prescribed medication. Contact the performing [facility] laboratory to add-on definitive confirmatory testing [...] oxymorphone.Performed By: #### DRUG3 #### JIMENA Mark ([id number]) [facility] ([facility]) [address], [place] [address]Lbkgstzrjbkim Ql (U)NegativeNormalPresumptive Negative [facility] Medical CenterComment on above:Order Comment: Drug screen results are presumptive and should not be used to assess compliance with prescribed medication. Contact the performing [facility] laboratory to add-on definitive confirmatory testing [...] dextromethorphan.Performed By: #### DRUG3 #### JIMENA Mark ([id number]) [facility] ([facility]) [address] [place] [address] 49304Gada Screen, Urineon 05-72-9456Gkzhwltetgin Screen Ql (U) NegativePresumptive [facility] on above: CUTOFF LEVEL: 500 NG/ML Cross-reactivity has been reported with high concentrations of the following drugs: buproprion, chloroquine, chlorpromazine, ephedrine, mephentermine, fenfluramine, phentermine, phenylpropanolamine, pseudoephedrine, and propranolol. Barbiturates Screen Ql (U)NegativePresumptive [facility] on above:CUTOFF LEVEL: 200 NG/MLBenzodiazepines Ql (U)Negative Presumptive [facility] on above:CUTOFF LEVEL: 200 NG/MLBenzoylecgonine Screen Ql (U)NegativePresumptive Negative [facility] on above:CUTOFF LEVEL: 150 NG/ML Cannabinoids Screen Ql (U)PositiveAbnormalPresumptive [facility] on above:CUTOFF LEVEL: 50 NG/ML fentaNYL+Norfentanyl Screen Ql (U)NegativePresumptive [facility] on above:CUTOFF LEVEL: 5 NG/MLInterpretation and review of laboratory resultsAbnoUniversity Hospitals Elyria Medical CenterMethadone Screen Ql (U)NegativePresumptive [facility] Comment on above:CUTOFF LEVEL: 150 NG/ML The metabolite V-ytfun-iholuzitawwwgq (LAAM) is not detected by this method in concentrations that would be found in the urine of patients on LAAM therapy. Opiates Screen Ql (U)NegativePresumptive NegativeFayette County Memorial Hospital on above:CUTOFF LEVEL: 300 NG/ML The opiate screen does not detect fentanyl, meperidine, or tramadol. Oxycodone is not consistently detected (refer to Oxycodone Screen, Urine result). oxyCODONE+oxyMORphone Screen Ql (U)NegativePresumptive NegativeFayette County Memorial Hospital on above:CUTOFF LEVEL: 100 NG/ML This test will accurately detect both oxycodone and oxymorphone. Phencyclidine Ql (U)NegativePresumptive NegativeFayette County Memorial Hospital on above:CUTOFF LEVEL: 25 NG/ML Cross-reactivity has been reported with dextromethorphan. Drug screen results are presumptive and should not be used to assess compliance with prescribed medication. Contact the performing [facility] laboratory to add-on definitive confirmatory testing [...] be directed to the laboratory medical directors. [facility]ultman HospitalECG 12-LEADon 62-55-4842CCN 12-LEADVentricular Rate 68 Atrial Rate 67 P-R Interval 110 QRS Duration 126 Q-T Interval 419 QTC Calculation(Bazett) 446 P [place] 82 R [place] 77 T [place] 67 QRS Count 11 Q Onset 249 T Offset 459 QTC Fredericia 437 Diagnosis Sinus rhythm Borderline short [place] interval Nonspecific intraventricular conduction delay ST elev, probable normal early repol pattern See ED provider note for full interpretation and clinical correlation Confirmed by Lynsey Luna ([id number]) on 07/28/2023 12:23:14 [facility] HealthHCG.beta subunit Qnon 26-04-9811Qvoilvmfjrtkis and review of laboratory resultsNormalUSuburban Community Hospital & [facility] HCG measurement is performed using the Jade Laramie Access Immunoassay which detects intact HCG and free beta HCG subunit. This test is not indicated for use as a tumor marker. HCG testing is performed using a different test methodology at [facility] than other [facility]. Direct result comparison should only be made within the same method. [facility] HospitalHuman Chorionic Gonadotropin, Serum Quantitativeon 20-91-8097ZLY.beta subunit QnNINF [facility] Medical CenterLactateon 22-03-2724Qrthqrj [Moles/Vol]1.4 mmol/L0.4 - 2.0 mmol/[facility] Willard HospitalLactate [Moles/Vol]1.4 mmol/LNormal0.4-2.0[facility] Medical CenterComment on above: Order Comment: Venipuncture immediately after or during the administration of Metamizole may lead to falsely low results. Testing should be performed immediately prior to Metamizole dosing.Performed By: #### 2524-7 #### JIMENA Mark ([id number]) [facility] ([facility]) [address] [place] [address] [phone] [Moles/Vol]2.2 mmol/LHigh0.4 - 2.0 mmol/[facility] Willard HospitalLactate [Moles/Vol]2.2 mmol/LHigh0.4-2.0[facility] Medical CenterComment on above:Order Comment: Venipuncture immediately after or during the administration of Metamizole may lead to falsely low results. Testing should be performed immediately prior to Metamizole dosing.Performed By: #### 2524-7 #### JIMENA Mark ([id number]) [facility] ([facility]) [address] [place] [address] 94154Rpvfxjm [Moles/Vol]on 22-30-0776Ndqlkhalazzlnt and review of laboratory resultsNoUniversity Hospitals Elyria Medical CenterVenipuncture immediately after or during the administration of Metamizole may lead to falsely low results. Testing should be performed immediately prior to Metamizole dosing.[facility] HospitalInterpretation and review of laboratory resultsAbnoUniversity Hospitals Elyria Medical CenterVenipuncture immediately after or during the administration of Metamizole may lead to falsely low results. Testing should be performed immediately prior to Metamizole dosing.[facility]man HospitalLipaseon 52-76-4365Lqdgdf [Catalytic activity/Vol]10 U/L9 - 82 U/L [facility] Medical CenterLipase [Catalytic activity/Vol]on 07-20-2023 Interpretation and review of laboratory resultsNoUniversity Hospitals Elyria Medical CenterVenipuncture immediately after or during the administration of Metamizole may lead to falsely low results. Testing should be performed immediately prior to Metamizole dosing.[facility] Private HospitalTriacylglycerol lipaseon 65-89-6323Bkjduu [Catalytic activity/Vol]10 U/LNormal9-82UnSt. Anthony's HospitalComment on above:Order Comment: Venipuncture immediately after or during the administration of Metamizole may lead to falsely low results. Testing should be performed immediately prior to Metamizole dosing.Performed By: #### 3040-3 #### JIMENA Mark ([id number]) [facility] ([facility]) [address] [place] [address] 33813Elqcocjb I.cardiac panel High sensitivity methodon 07-20-2023 Interpretation and review of laboratory resultsNoUniversity Hospitals Elyria Medical CenterLess than 99th percentile of normal range cutoff- [...] using a different testing methodology at [facility] than at other [facility]. Direct result comparisons should only be made within the same method.[facility] HospitalTroponin I, High Sensitivityon 91-62-7083Hzwgidxj I.cardiac panel High sensitivity methodng/L0 - 13 ng/LUnHenry County HospitalTroponin I.cardiac panelon 42-50-0242Ifzgwwri I.cardiac panel High sensitivity method<1Rsdazl6-97YacuwvmgmbSt. Anthony's HospitalComment on above:Order Comment: Venipuncture immediately after or during the administration of Metamizole may lead to falsely low results. Testing should be performed immediately prior to Metamizole dosing.Performed By: #### 2524-7 #### JIMENA Mark ([id number]) [facility] ([facility]) [address], [place] [address]Mdgidnzcyc complete W Reflex Culture panel (U)on 07-20-2023 Appearance (U)HazyAbnormalClearSumma Health Wadsworth - Rittman Medical CenterBilirubin (U) [Mass/Vol]NegativeNEGATIVEUnHenry County HospitalColor (U)YellowStraw, YellowUnHenry County HospitalEpithelial cells.squamous Auto (Urine sed) [#/Area]1-9 (SPARSE)Reference range not established. /HPFUnHenry County HospitalGlucose Auto test strip (U) [Mass/Vol]NegativeNEGATIVE mg/dLUnHenry County HospitalInterpretation and review of laboratory resultsAbnormalUniSelect Medical Specialty Hospital - Cincinnati NorthKetones (U) [Mass/Vol]80 (2+) AbnormalNEGATIVE mg/dLUnHenry County HospitalLeukocyte esterase Auto test strip Ql (U)NegativeNEGATIVEUnHenry County HospitalMucus Auto (Urine sed) [#/Area]4+Reference range not established. /LPFUniSelect Medical Specialty Hospital - Cincinnati NorthNitrite Auto test strip Ql (U)NegativeNEGATIVEUnHenry County HospitalpH (U)9.0 [pH]Abnormal5.0, 5.5, 6.0, 6.5, 7.0, 7.5, 8.0UnHenry County HospitalProtein (U) [Mass/Vol]>=500 (3+)AbnormalNEGATIVE mg/dL [facility] Medical CenterRBC (U) [#/Vol]NegativeNEGATIVEUnHenry County HospitalRBC Auto (Urine sed) [#/Area]1-2NONE, 1-2, 3-5 /HPF [facility] Medical CenterSpecific gravity (U) [Rel density]1.0251.005 - 1.035UnHenry County HospitalUrobilinogen (U) [Mass/Vol]mg/dLNINF - 2.0 mg/dLSumma Health Wadsworth - Rittman Medical CenterWBC Auto (Urine sed) [#/Area]1-51-5, NONE /HPFUnHenry County HospitalYeast.budding Computer assisted (U) [#/Area]PRESENTAbnormalNONE /Flower HospitalUnHenry County HospitalAppearance (U)HazyNormalClearUniversity Hospitals Geauga Medical CenterComment on above:Performed By: #### 98319-5 #### JIMENA Mark ([id number]) [facility] ([facility] [address] [place] [address] [phone] (U) [Mass/Vol]NegativeNormalNEGATIVEUniversity Hospitals Geauga Medical CenterComment on above:Performed By: #### 79396-1 #### JIMENA Mark ([id number]) [facility] ([facility] [facility]) [address] [place] [address] 80500Okwyz (U)YellowNormalStraw, [facility]aconess HospitalComment on above:Performed By: #### 32151-3 #### JIMENA Mark ([id number]) [facility] ([facility]) [address] [place] [address] 97102Aheflswsnt cells.squamous Auto (Urine sed) [#/Area]1-9 (SPARSE) NormalReference range not established.[facility] CenterComment on above:Performed By: #### 42805-3 #### JIMENA Mark ([id number]) [facility] ([facility]) [address] [place] [address] 18884Ggwaecr Auto test strip (U) [Mass/Vol]NegativeNormalNEGATIVE [facility] CenterComment on above:Performed By: #### 84377-7 #### JIMENA Mark ([id number]) [facility] ([facility]) [address] [place] [address] 75617Ukuiore (U) [Mass/Vol]80 (2+)AbnormalNEGATIVEUnSt. Anthony's HospitalComment on above:Performed By: #### 52543-9 #### JIMENA Mark ([id number]) [facility] ([facility]) [address] [place] [address] 90490Eqfhwzmut esterase Auto test strip Ql (U)NegativeNormalNEGATIVE [facility] CenterComment on above:Performed By: #### 37101-3 #### JIMENA Mark ([id number]) [facility] ([facility]) [address] [place] [address] 55610Lgveh Auto (Urine sed) [#/Area]4+ /LPFNormalReference range not established.[facility] CenterComment on above: Performed By: #### 10744-2 #### JIMENA Mark ([id number]) [facility] ([facility]) [address] [place] [address] 65209Fqllwie Auto test strip Ql (U)NegativeNormalNEGATIVEUnSt. Anthony's HospitalComment on above:Performed By: #### 57847-4 #### JIMENA Mark ([id number]) [facility] ([facility]) [address] [place] [address] 41233aU (U)9.0 [pH]Normal5.0, 5.5, 6.0, 6.5, 7.0, 7.5, 8.0[facility]a Medical CenterComment on above:Performed By: #### 25893-4 #### JIMENA Mark ([id number]) [facility] ([facility]) [address] [place] [address] 30736Muumcpf (U) [Mass/Vol]>=500 (3+)NormalNEGATIVEUnSt. Anthony's HospitalComment on above:Performed By: #### 69560-0 #### JIMENA Mark ([id number]) [facility] ([facility]) [address] [place] [address] 36596UDB (U) [#/Vol]NegativeNormalNEGATIVEUnSt. Anthony's HospitalComment on above:Performed By: #### 91085-3 #### JIMENA Mark ([id number]) [facility] ([facility]) [address] [place] [address] 45364LAX Auto (Urine sed) [#/Area]1-2NormalNONE, 1-2, 3-5UnSt. Anthony's HospitalComment on above:Performed By: #### 46619-5 #### JIMENA Mark ([id number]) [facility] ([facility]) [address] [place] [address] 95648Usjhvppd gravity (U) [Rel density]1.315Ingevf1.005-1.035 [facility] Medical CenterComment on above:Performed By: #### 78351-5 #### JIMENA Mark ([id number]) [facility] ([facility]) [address] [place], [place] [address]Urobilinogen (U) [Mass/Vol]mg/dLNormal<2.0[facility] Medical CenterComment on above:Performed By: #### 28184-2 #### JIMENA Mark ([id number]) [facility] ([facility]) [address] [place] [address] 89410FVU Auto (Urine sed) [#/Area]7-2Inwoly2-3, NONEUniversity Hospitals Geauga Medical CenterComment on above:Performed By: #### 72818-3 #### JIMENA Mark ([id number]) [facility] ([facility]) [address] [place] [address] 16814Gyisy.budding Computer assisted (U) [#/Area]PRESENTAbnormalARIZONA STATE HOSPITALE [facility]auga Medical CenterComment on above:Performed By: #### 30301-6 #### JIMENA Mark ([id number]) [facility] ([facility]) [address] [place] [address] [id number] CHEST 1 VIEWon 94-35-5003OQ CHEST 1 VIEWInterpreted By: Mark Stanton, STUDY: XR CHEST 1 VIEW; 07/20/2023 4:05 pm INDICATION: Signs/Symptoms:cp. COMPARISON: None. ACCESSION NUMBER(S): [id number] ORDERING CLINICIAN: ABIODUN OCHOA FINDINGS: Heart is normal in size. There is no consolidation or pleural fluid. The mediastinum and bones are unremarkable. There are bilateral nipple shadows. COMPARISON OF FINDING: IMPRESSION: No acute cardiopulmonary disease. MACRO: none Signed by: Mark Stanton 07/20/2023 4:17 PM Dictation workstation: [id number] Health Miami Valley Hospital NorthXR Chest Single viewon 55-19-3828Yg acute cardiopulmonary disease. MACRO: none Signed by: Mark Stanton 07/20/2023 4:17 PM Dictation workstation: [id number] MMODALInterpreted By: Mark Stanton, STUDY: XR CHEST 1 VIEW; 07/20/2023 4:05 pm INDICATION: Signs/Symptoms:cp. COMPARISON: None. ACCESSION NUMBER(S): [id number] ORDERING CLINICIAN: ABIODUN OCHOA FINDINGS: Heart is normal in size. There is no consolidation or pleural fluid. The mediastinum and bones are unremarkable. There are bilateral nipple shadows. COMPARISON OF FINDING: Mark Morel MD - 07/20/2023 Interpreted By: Mark Stanton, STUDY: XR CHEST 1 VIEW; 07/20/2023 4:05 pm INDICATION: Signs/Symptoms:cp. COMPARISON: None. ACCESSION NUMBER(S): [id number] ORDERING CLINICIAN: ABIODUN OCHOA FINDINGS: Heart is normal in size. There is no consolidation or pleural fluid. The mediastinum and bones are unremarkable. There are bilateral nipple shadows. COMPARISON OF FINDING: IMPRESSION: No acute cardiopulmonary disease. MACRO: none Signed by: Mark Stanton 07/20/2023 4:17 PM Dictation workstation: [id number] [facility] Work Phone: Radiology Study observation (narrative)[facility] Work Phone: XR Chest Single viewOrdered By: Mark Stanton on 38-20-4559JpeelggvyoHenry County Hospital Work Phone: MRI HEAD/BRAIN WO/W CONTRon 24-42-7243Ycr[address] [address] Magnetic Resonance Report Signed Patient: INDU ST MR#: [id number] : 1995 Acct:[id number] Age/Sex: 27 / F ADM Date: 05/28/23 Loc: MRI Attending Dr: Uriel Meade D.O. Ordering Physician: Uriel Meade D.O. Date of Service: 05/28/23 Procedure(s): MR head/brain wo/w con Accession Number(s): [id number] cc: CAROLYNE COLLAZO ; Uriel Meade D.O. [place] [id number] Patient Name: INDU ST MRN: [id number] date: 1995 Sex: F Assigned Patient Location: MRI Current Patient Location: MRI Accession/Order Number: [id number] Exam Date: 05/28/2023 12:42 Report Date: 05/28/2023 [...] Signed By: 05/28/23 1424 DD/ 21 TD/TT: Grease Machine Worker:TERRYHRadiology, Radiologist, - 05/28/2023 [place] [address] Magnetic Resonance Report Signed Patient: INDU ST MR#: [id number] : 1995 Acct:[id number] Age/Sex: 27 / F ADM Date: 05/28/23 Loc: MRI Attending Dr: Uriel Meade D.O. Ordering Physician: Uriel Meade D.O. Date of Service: 05/28/23 Procedure(s): MR head/brain wo/w con Accession Number(s): [id number] cc: CAROLYNE COLLAZO ; Uriel Meade D.O. The [place] [address] Patient Name: INDU ST MRN: [id number] date: 1995 Sex: F Assigned Patient Location: MRI Current Patient Location: MRI Accession/Order Number: [id number] Exam Date: 05/28/2023 12:42 Report Date: 05/28/2023 [...] M.D. Signed By: 05/28/231423 DD/ 21 TD/TT: Grease Machine Worker: [facility] HospitalRadiology Study observation (narrative)[facility] HospitalMRI HEAD/BRAIN WO/W CONTROrdered By: Radiologist Radiology on 31-93-0866[facility] Work Phone: tbh PROLACTINon 05-76-2788Cdkeajnpgruzlm and review of laboratory resultsAbnormalProgress West HospitalGoanhklnpkJSMQQSSQE101.0 ng/mLAbnormal4.8 - 33.4 ng/mLNOMS HealthcareComment on above:Performed at: [facility] LabJoseph Ville [id number] Senior Accounting Analyst: Don Tolentino PhD, Phone: [phone] [facility]Bl[facility] CBC WITH AUTO DIFFon 54-77-5554ADQOAHXRO ABSOLUTE AUTO0.0NOMercy hospital springfieldBasophils/100 WBC (Bld)0.4 %0.2 - 2.0 %[facility] Eosinophils/100 WBC (Bld)0.1 %Low0.9 - 7.0 %[facility] HospitalErythrocyte distribution width (RBC) [Ratio]13.5 %11.0 - 15.0 %[facility] HospitalHematocrit (Bld) [Volume fraction]37.2 %36.0 - 48.0 %[facility] HospitalHemoglobin (Bld) [Mass/Vol]12.0 g/dL12.0 - 16.0 g/dLProgress West HospitalIMMATURE GRANULOCYTES ABS AUTO 0.01NOVT HealthcareImmature granulocytes/100 WBC (Bld)0.1 %0.0 - 0.5 %[facility] HealthcareInterpretation and review of laboratory resultsAbnormalProgress [facility] Hospital LYMPHOCYTES ABSOLUTE AUTO2.3NOMercy hospital springfieldLymphocytes/100 WBC (Bld)33.3 %20.5 - 60.0 %[facility] St[facility] LouisH (RBC) [Entitic mass]28.0 pg26.7 - 34.[address] pgThe [facility] [address] LouisHC (RBC) [Mass/Vol]32.3 g/dL29.9 - 35.2 g/dLThe Rehabilitation Institute of St. LouisV (RBC) [Entitic vol]86.7 fL81.0 - 99.0 fLProgress West HospitalMONOCYTES ABSOLUTE AUTO0.4NOVT HealthcareMonocytes/100 WBC (Bld)5.1 %1.7 - 12.0 %[facility] HospitalNEUTROPHILS ABSOLUTE AUTO4.2NOMS HealthcareNeutrophils/100 WBC (Bld)61.0 %43.0 - 75.0 %[facility] HospitalPlatelet mean volume (Bld) [Entitic vol]9.9 fL9.5 - 13.5 fLProgress West HospitalTB EO #0.0NOMS [facility] HospitalTB IMY992SWYCSaint Luke's [facility] RBC4.29NOSaint Luke's [facility] Hospital[facility] WBC6.9NOMercy hospital springfieldCLINISYNCNOKLAHOMA FORENSIC [facility] HealthcareALL THYROID STIM HORMONEon 92-61-8254JGF Qn2.036 m[IU]/LNOMS HealthcareNo Panel Informationon 65-70-1435BDCMWORWVAKYX HealthcareTB PREG QUANT HCGon 18-41-7282JBL QUANTITATIVE<1mIU/mLNOMS HealthcareComment on above:5-50 0.2-1 WEEK 50-500 1-2 WEEKS 100-5,000 2-3 WEEKS 500-10,000 3-4 WEEKS 1,000-50,000 4-5 WEEKS 10,000-100,000 5-6 WEEKS 15,000-200,000 6-8 WEEKS 10,000-100,000 2-3 MONTHS US PELVIS W/ TRANSVAGINALon 28-33-8908Rjm[address] [address] Ultrasound Report Signed Patient: INDU ST MR#: [id number] : 1995 Acct:[id number] Age/Sex: 27 / F ADM Date: 05/23/23 Loc: US Attending Dr: Uriel Meade D.O. Ordering Physician: Uriel Meade D.O. Date of Service: 05/23/23 Procedure(s): US pelvis w/ transvaginal Accession Number(s): [id number] cc: CAROLYNE COLLAZO ; Uriel Meade D.O. The [place] [id number] Patient Name: INDU ST MRN: [facility]:[id number] date: 1995 Sex: F Assigned Patient Location: US Current Patient Location: US Accession/Order Number: [id number] Exam Date: 05/23/2023 14:30 Report Date: 05/23/2023 [...] Signed By: 05/23/23 1539 DD/ 1537 TD/TT: Grease Machine Worker:TERRYHRadiology, Radiologist, MD - 05/23/[address] [address] Ultrasound Report Signed Patient: INDU ST MR#: [id number] : 1995 Acct:[id number] Age/Sex: 27 / F ADM Date: 05/23/23 Loc: US Attending Dr: Uriel Meade D.O. Ordering Physician: Uriel Meade D.O. Date of Service: 05/23/23 Procedure(s): US pelvis w/ transvaginal Accession Number(s): [id number] cc: CAROLYNE COLLAZO ; Uriel Meade D.O. [place] [id number] Patient Name: INDU ST MRN: [id number] date: 1995 Sex: F Assigned Patient Location: US Current Patient Location: US Accession/Order Number: [id number] Exam Date: 05/23/2023 14:30 Report Date: 05/23/2023 [...] Signed By: 05/23/23 1539 DD/ 1537 TD/TT: Grease Machine Worker: [facility] HOSPITALHiren HealthcareRadiology Study observation (narrative)NOM HealthcareUS PELVIS W/ TRANSVAGINALOrdered By: Radiologist Radiology on 28-00-4531[facility] Work Phone: cytology Cervical or vaginal smear or scraping studyon 24-10-5259MTAS HealthcareXR HYSTEROSALPINGOGRAMon 81-08-1759QP HYSTEROSALPINGOGRAM* * *Final Report* * * DATE [...] nondilated tubes. No spillage. IMPRESSION: Please see DIRECTOR OF PHYSICAL THERAPY report for assessment of real-time findings. Grease Machine Worker: ANTONIETA Transcribe Date/Time: Jan 20 2021 1:37P Dictated by : DAYANNA LEROY MD This examination was interpreted and the report reviewed and electronically signed by: DAYANNA LEROY MD on Jan 20 2021 1:45PM EST [id number]_IDCSIACNNormalAvon HospitalPREGNANCY URon 99-16-9407ZMDEDNCDV, QUALNegativeNormalNEGATIVEThe Protestant HospitalComment on above:Performed By: #### PREGU #### [facility] [address] [place] [address] Juany KarenCovid-19 PCR ([facility])on 12-49-9120Horwr-19 PCRDETECTEDAbnormalNOT DETECTEDThe Protestant HospitalComment on above:Result Comment: This test is not yet approved or cleared by the [place] FDA. When there are no FDA-approved or cleared tests available, and other criteria are met, FDA can make tests available under an emergency access mechanism called an Emergency Use Authorization (EUA). The EUA for this test is supported by the [place] of Health and Human Service's (HHS's) declaration [...] longer be used).Performed By: #### CVDTBH #### [facility] [address] [place], [place] [address] Juany AlessandraSONY Green Cross HospitalComment on above: Result Comment: This test is not yet approved or cleared by the [place] FDA. When there are no FDA-approved or cleared tests available, and other criteria are met, FDA can make tests available under an emergency access mechanism called an Emergency Use Authorization (EUA). The EUA for this test is supported by the Mechanical Engineering Technician of Health and Human Service?s (HHS?s) declaration [...] consistent with SARS-CoV-2.Performed By: #### CVDTBH #### [facility] [address] [place], [place] [address] Juany Mccarthy Vital Signs Date TimeVital SignValuePerforming XycvsqroqZydkjlim09-84-0787 08:51-0400Body mass index (BMI) [Ratio]22.13 kg/m2Dary GOMEZ Work Phone: LilyMediaMercy hospital springfieldZlnkuvbasu30-37-5988 08:51-0400Body xyyket62.2 kg Dary GOMEZ Work Phone: NOMercy hospital springfieldQkviknxacd67-61-3451 08:51-0400Diastolic blood ecweewxg10 mm[Hg]Dary GOMEZ Work Phone: [facility] HospitalMmnolxyaro79-07-3278 08:51-0400Systolic blood syonvakm168 mm[Hg]Dary GOMEZ Work Phone: [facility] HospitalMhimgcgktl29-68-9697 09:36-0400Body mass index (BMI) [Ratio]22.08 kg/q6TxgyuUriel Meade DO Work Phone: 1(004)324-[address] [place], [place] [address]Kdfwcbqdgv88-22-0672 09:36-0400Body thjyun87.05 kgCorey Halina DO Work Phone: 1(808)[facility] [place], [place] [address]Vcjjwbowfl73-01-3433 09:36-0400Diastolic blood jdacmsxm18 mm[Hg]Uriel Halina DO Work Phone: 1(419)[facility] [place], [place] [address]Gunmjwjakn50-18-6651 09:36-0400Systolic blood gmskiyyh594 mm[Hg]Uriel Halina DO Work Phone: 1(419)[facility] [place], [place] [address]Ulefywunni82-94-8009 08:57-0400Body mass index (BMI) [Ratio]20.98 kg/p5EvlonzfoDolores Caldwell ELL TUTOR Work Phone: 1(726)[facility] [place], [place] [address]Imgszpahls56-01-0428 08:57-0400Body uuuvcm90.97 kgKrnatan Caldwell ELL TUTOR Work Phone: 1(965)[facility] [place], [place] [address]Udyjwdipxl92-05-4892 08:57-0400Diastolic blood psztamcy54 mm[Hg]Dolores Caldwell ELL TUTOR Work Phone: 1(034)[address] [place], [place] 3054309-30-2025 08:57-0400Systolic blood vaeoeban715 mm[Hg]Dolores Caldwell ELL TUTOR Work Phone: 1(404)[address] [place], [place] 3054309-16-2025 08:38-0400Body mass index (BMI) [Ratio]21.43 kg/m4Zogcu Halina DO Work Phone: 1(885)[address] [place], [place] 3054309-16-2025 08:38-0400Body .24 kgCorey Halina DO Work Phone: 1(419)[address] [place], [place] 3054309-16-2025 08:38-0400Diastolic blood mm[Hg]Uriel Halina DO Work Phone: 1(499)[facility] [place], [place] [address]Zbvgdzgwum17-14-0761 08:38-0400Systolic blood drqsnjai381 mm[Hg]Uriel Halina DO Work Phone: 1(895)[address] [place], [place] 3054308-19-2025 09:02-0400Body mass index (BMI) [Ratio]20.47 kg/r6Yusqb Halina DO Work Phone: 1(098)[facility] [place], [place] [address]Bsgxwfadzw28-03-0252 09:02-0400Body zgusav41.52 kgCorey Halina DO Work Phone: 1(865)[facility] [place], [place] [address]Hftuyhdrhj93-21-9126 09:02-0400Diastolic blood mm[Hg]Uriel Halina DO Work Phone: 1(198)[facility] [place], [place] [address]Ngihpvqils31-24-8538 09:02-0400Systolic blood skyrsnxp068 mm[Hg]Uriel Halina DO Work Phone: 1(574)[address] [place], [place] 3054307-24-2025 08:47-0400Body mass index (BMI) [Ratio]19.69 kg/n1Zqhpn Halina DO Work Phone: 1(606)[address] [place], [place] 3054307-24-2025 08:47-0400Body xkyszp94.34 kgCorey Halina DO Work Phone: 1(850)[address] [place], [place] 3054307-24-2025 08:47-0400Diastolic blood mm[Hg]Uriel Halina DO Work Phone: 1(520)[address] [place], [place] 3054307-24-2025 08:47-0400Systolic blood jajjbbmq881 mm[Hg]Uriel Halina DO Work Phone: 1(449)[address] [place], [place] 3054307-09-2025 08:06-0400Body mass index (BMI) [Ratio]19.85 kg/e7GqjrzMaria T Lambert RD Work Phone: 1(245)[address] [place], [place] 7663607-09-2025 08:06-0400Body sniuys93.[address] Work Phone: [phone])[address] [place], [place] 7663607-01-2025 08:02-0400Body .6 cmMario Alberto Ortiz MD Work Phone: 1(948)[address] [place], [place] 7663607-01-2025 08:02-0400Body mass index (BMI) [Ratio]20.14 kg/a3UuymsyneMario Alberto Ortiz MD Work Phone: 1(550)[address] [place], [place] 7663607-01-2025 08:02-0400Body upiqdl03.61 kgMario Alberto Ortiz MD Work Phone: 1(530)675-[address] [place], [place] 6050107-01-2025 08:02-0400Diastolic blood fktwnvyz73 mm[Hg]Mario Alberto Ortiz MD Work Phone: 1(079)263-[address] [place], [place] 6050107-01-2025 08:02-0400Heart rate 87 /minMario Alberto Ortiz MD Work Phone: 1(011)[address]07-01-2025 08:02-0400Systolic blood qioiisqv153 mm[Hg]Mario Alberto Ortiz MD Work Phone: 1(964)[address]06-24-2025 09:49-0400Body mass index (BMI) [Ratio]19.41 kg/r7Gjkeh Halina DO Work Phone: [facility] HospitalYqdvnrmevx70-18-6972 09:49-0400Body zusodx12.55 kgCorey Halina DO Work Phone: [facility] HospitalSojmqnlxlc28-86-4515 09:49-0400Diastolic blood hibwezid45 mm[Hg]Uriel Halina DO Work Phone: [facility] HospitalMgpezfbuov02-00-3348 09:49-0400Systolic blood eakvjcfl660 mm[Hg]Uriel Halina DO Work Phone: [facility] HospitalZxqnqdbasu16-99-0803 15:53-0400Body temperature 98.4 [degF]Mayra Dobson MD Work Phone: [phone]-[facility]06-13-2025 15:53-0400 Diastolic blood nytqebyb96 mm[Hg]Mayra Dobson MD Work Phone: [facility]06-13-2025 15:53-0400 Heart rate77 /Grace Dobson MD Work Phone: [facility]06-13-2025 15:53-0400 Respiratory rate18 /Grace Dobson MD Work Phone: 1(216)844-[address] [place], [place] 7704706-13-2025 15:53-0400 SaO2% (BldA) [Mass fraction]99 %Mayra Dobson MD Work Phone: 1(323)038-[address] [place], [place] 7704706-13-2025 15:53-0400 Systolic blood tsuiszua809 mm[Hg]Mayra Dobson MD Work Phone: [phone])884-[address] [place], [place] 7704706-12-2025 23:24-0400 Body jwjyedypqxo10Vvyewdas Brenner MD Work Phone: 1(354)878-[address] [place], [place] 7704706-12-2025 23:23-0400 Body pdtwcpdwmur43.0 degrees CelsiusUniversity Hospitals Elyria Medical CenterComment on above:Performed By: #### 21038-8 #### CARI Mark ([id number]) [facility] ([facility]) [address] [place], [place] [address]-12-2025 22:08-0400Body rroesb239.6 cmMayra Dobson MD Work Phone: 1(922)597-[address] [place], [place] 7704706-12-2025 22:08-0400 Body mass index (BMI) [Ratio]18.72 kg/c3FucapxftMayra Dobson MD Work Phone: 1(131)376-[address] [place], [place] 7704706-12-2025 22:08-0400 Body ombfqp43.62 kgMayra Dobson MD Work Phone: 1(659)369-[address] [place], [place] 7704706-11-2025 11:38-0400 Diastolic blood gmyfvqmz07 mm[Hg]Milan Lerner DO Work Phone: [facility]06-11-2025 11:38-0400 Heart rate84 /minMilan Lerner DO Work Phone: [facility]06-11-2025 11:38-0400 Respiratory rate16 /minMilan Lerner DO Work Phone: [facility]06-11-2025 11:38-0400 SaO2% (BldA) [Mass fraction]100 %Milan Lerner DO Work Phone: [facility]06-11-2025 11:38-0400 Systolic blood mm[Hg]Milan Lerner DO Work Phone: 1(380)[address]06-11-2025 09:25-0400 Body iybypy778.6 cmCman Lerner DO Work Phone: 1(042)889-[address] [place], [place] 6235606-11-2025 09:25-0400 Body mass index (BMI) [Ratio]18.72 kg/t9Ydbrxjxgerson Lerner DO Work Phone: 1(816)37572446 [address] [place], [place] 6235606-11-2025 09:25-0400 Body .3 [degF]Milan Lerner DO Work Phone: 1(446)58566[address] [place], [place] 6235606-11-2025 09:25-0400 Body awjzgc83.62 kgCamgerson Lerner DO Work Phone: [facility]05-28-2025 14:49-0400 Body mass index (BMI) [Ratio]19.17 kg/q7Fekrc Halina DO Work Phone: 1(318)537-[facility] HospitalNcdmwtqqol35-93-7083 14:49-0400Body mupftr91.89 kgCorey Halina DO Work Phone: [facility] HospitalKkbpnifikw23-45-7205 14:49-0400Diastolic blood cybdyxnx90 mm[Hg]Uriel Halina DO Work Phone: [facility] HospitalUrxjrkeukj07-50-5112 14:49-0400Systolic blood fdkzvtuo517 mm[Hg]Uriel Halina DO Work Phone: [facility] HospitalDvyibokucd02-45-9961 14:54-0400Body mass index (BMI) [Ratio]18.4 kg/r1Ieahg Halina DO Work Phone: [facility] HospitalMpbzsmednn36-69-9511 14:54-0400Body vazqiz60.71 kgCorey Halina DO Work Phone: 1(914)622-[facility] HospitalVyzmmdtaon88-37-5929 14:54-0400Diastolic blood mm[Hg]Uriel Halina DO Work Phone: NOMercy hospital springfieldXeoyqiumqf80-85-5852 14:54-0400Systolic blood ylrbioyv220 mm[Hg]Uriel Halina DO Work Phone: noMercy hospital springfieldWbopfvtkuc32-47-9592 11:27-0400Hourly Rounding Ronobir KAI [address] [place], [place] 0071604-20-2025 11:27-0400 Promise to ReturnRonobir KAI [address]04-20-2025 10:00-0400 Hourly RoundingRonobir KAI [address] [place], [place] 0071604-20-2025 10:00-0400 Promise to ReturnRonobir KAI [address] [place], [place] 0071604-20-2025 09:20-0400 Hourly RoundingRonobir KAI [address] [place], [place] [id number] 09:20-0400 Promise to ReturnRonobir KAI [address] [place], [place] [id number] 07:44-0400Heart rate75 /minRonobir KAI [address] [place], [place] [id number] 07:44-8675EoU4% (BldA) [Mass fraction]99 %Ronobir KAI [address] [place], [place] [id number] 07:43-0400 Diastolic blood saxffcfg73 mm[Hg]Ronobir KAI [address] [place], [place] [id number] 07:43-0400Mean blood mm[Hg]Ronobir KAI [address] [place], [place] 0071604-20-2025 07:43-0400 Systolic blood iojrpaff395 mm[Hg]Ronobir KAI [address]04-20-2025 07:43-0400Body phmhrppjdog86.42 [degF]Ronobir KAI [address] [place], [place] [id number] 19:58-0400Heart rate79 /minRonobir KAI [address] [place], [place] [id number] 19:58-8313AoS7% (BldA) [Mass fraction]97 %Ronobir KAI [address] [place], [place] 4692904-19-2025 19:57-0400 Diastolic blood siesqsat46 mm[Hg]Ronobir KAI [address] [place], [place] 4692904-19-2025 19:57-0400Mean blood tsnlfbjo38 mm[Hg]Ronobir KAI [address] [place], [place] 0071604-19-2025 19:57-0400 Systolic blood bkcpdejy065 mm[Hg]Ronobir KAI [address] [place], [place] 0071604-19-2025 19:56-0400Body dfnjtlprcba18.6 [degF]Ronobir KAI [address] [place], [place] 4692904-19-2025 19:00-0400 Respiratory rate18 /minRonobir KAI [address] [place], [place] 0071604-19-2025 17:19-0400Heart rate80 /minRonobir KAI [address] [place], [place] 0071604-19-2025 17:19-7829QiY2% (BldA) [Mass fraction]97 %Ronobir KAI [address] [place], [place] 0071604-19-2025 17:17-0400Blood Pressure LocationRonobir KAI [address] [place], [place] 0071604-19-2025 17:17-0400 Diastolic blood osrnlpzv66 mm[Hg]Ronobir KAI [address] [place], [place] 0071604-19-2025 17:17-0400Mean blood merlqaej23 mm[Hg]Ronobir KAI [address] [place], [place] 0071604-19-2025 17:17-0400 Systolic blood bekarmbw598 mm[Hg]Ronobir KAI [address]04-19-2025 17:17-0400Body iimgxnouvnc32.78 [degF]Ronobir KAI [address] [place], [place] 0071604-19-2025 00:02-0400Body rzhkictrloa22.6 [degF]Ronobir KAI [address] [place], [place] 4692904-19-2025 00:02-0400 Respiratory rate16 /minRonobir KAI [address] [place], [place] 4692904-18-2025 16:30-0400 Respiratory rate18 /minRonobir KAI [address]04-18-2025 06:00-0400Mean blood edghadqf00 mm[Hg]Ronobir KAI [address] [place], [place] 0071604-18-2025 02:49-0400Body nxctkuikkau22.24 [degF]Ronobir KAI [address] [place], [place] 0071604-18-2025 02:49-0400Mean blood ampymblx21 mm[Hg]Ronobir KAI [address] [place], [place] 0071604-17-2025 22:25-0400Heart rate81 /minRonobir KAI [address] [place], [place] 0071604-17-2025 18:14-0400Mean blood peeikhui65 mm[Hg]Ronobir KAI [facility]04-17-2025 12:11-0400 Respiratory rate18 /minRonobir KAI [facility]04-17-2025 12:04-0400 Respiratory rate24 /minRonobir KAI [facility]04-17-2025 11:32-0400Heart rate77 /minRonobir KAI [facility]04-17-2025 10:48-0400Heart rate81 /minRonobir KAI [facility]02-10-2025 14:48-0500Body srwzar080.6 Satish Collazo MD Work Phone: [facility] HospitalRfkxjkeyes90-41-5454 14:48-0500Body mass index (BMI) [Ratio]17.98 kg/g1NlffcCarolyne Collazo MD Work Phone: [facility] HospitalAqputghdxz37-52-4539 14:48-0500Body temperature 98.4 [degF]Carolyne Collazo MD Work Phone: [facility] HospitalKpshsquelb59-84-9616 14:48-0500Body uvgcsb15.53 kgCarolyne Collazo MD Work Phone: [facility] HospitalGpbbjxnjzk13-49-7273 14:48-0500Diastolic blood qsyubpto22 mm[Hg]Carolyne Collazo MD Work Phone: [facility] HospitalGacckzgpcg16-61-6808 14:48-0500Heart rate78 /min Carolyne Collazo MD Work Phone: [facility] HospitalLajqsxmaqm80-09-3585 14:48-4946ZyI8% (BldA) [Mass fraction]98 %Carolyne Collazo MD Work Phone: [facility] HospitalKfiwjeypdi01-73-2523 14:48-0500Systolic blood uxyimqof796 mm[Hg]Carolyne Collazo MD Work Phone: noms Hmcavrptgx61-75-8530 08:43-0400Body .6 cmCorey Halina DO Work Phone: [facility] HospitalIconygchhg96-48-8390 08:43-0400Body mass index (BMI) [Ratio]17.59 kg/k9Cvrkb Halina DO Work Phone: [facility] HospitalLhpzwhxpzq05-48-1491 08:43-0400Body eezdvl64.44 kgCorevikram Palomareso DO Work Phone: [facility] HospitalHgljgjajed23-33-8007 08:43-0400Diastolic blood iwfqvydq85 mm[Hg]Uriel Palomareso DO Work Phone: [facility] HospitalSvyclmgohe34-75-8318 08:43-0400Systolic blood gskdmdod937 mm[Hg]Uriel Palomareso DO Work Phone: [facility] HospitalOcfcnghmnl74-01-7772 10:05-0400Blood Pressure LocationModarlyn Knutson [facility]08-12-2024 10:05-0400 Diastolic blood urtpoctr11 mm[Hg]Alex Knutson [facility]08-12-2024 10:05-0400Heart rate66 /minAlex Knutson [facility]08-12-2024 10:05-0400Mean blood mm[Hg]Alex Knutson [facility]08-12-2024 10:05-0400 Respiratory rate19 /minMohamad Zenia [facility]08-12-2024 10:05-1105NnB3% (BldA) [Mass fraction]97 %Alex Knutson [facility]08-12-2024 10:05-0400 Systolic blood xwdvuftk005 mm[Hg]Mohamad Mouchli [facility]08-12-2024 09:55-0400Blood Pressure LocationMohamad Mouchli [facility]08-12-2024 09:55-0400 Diastolic blood szfevmbp57 mm[Hg]Mohamad Mouchli [address] [place], [place] 7976308-12-2024 09:55-0400Heart rate57 /minMohamad Mouchli [address] [place], [place] 7976308-12-2024 09:55-0400Mean blood tfepfihd54 mm[Hg]Mohamad Mouchli [address] [place], [place] 7976308-12-2024 09:55-0400 Respiratory rate19 /minMohamad Mouchli [address] [place], [place] 7976308-12-2024 09:55-3938VkS2% (BldA) [Mass fraction]100 %Mohamad Mouchli [address] [place], [place] 7976308-12-2024 09:55-0400 Systolic blood hbitsids202 mm[Hg]Mohamad Mouchli [address] [place], [place] 7976308-12-2024 09:50-0400Blood Pressure LocationMohamad Mouchli [address] [place], [place] 7976308-12-2024 09:50-0400 Diastolic blood ewchqpxd40 mm[Hg]Mohamad Mouchli [address] [place], [place] 4992508-12-2024 09:50-0400Heart rate90 /minMohamad Mouchli [address] [place], [place] 7976308-12-2024 09:50-0400Mean blood josleply94 mm[Hg]Mohamad Mouchli [address] [place], [place] 7976308-12-2024 09:50-0400 Respiratory rate13 /minMohamad Mouchli [address] [place], [place] 7976308-12-2024 09:50-7402UzO5% (BldA) [Mass fraction]100 %Mohamad Mouchli [address] [place], [place] 1361708-12-2024 09:50-0400 Systolic blood mm[Hg]Mohamad Mouchli [address] [place], [place] 1361708-12-2024 09:41-0400Body klxqaripweh91.06 [degF]Mohamad Mouchli [address] [place], [place] 1361708-12-2024 09:30-0400 Respiratory rate10 /minMohamad Mouchli [address] [place], [place] 1361708-12-2024 09:25-0400 Respiratory rate10 /minMohamad Mouchli [address] [place], [place] 1361708-12-2024 09:24-0400 Respiratory rate10 /minMohamad Mouchli [address] [place], [place] 1361708-12-2024 07:13-0400Body whqeedlbidx66.42 [degF]Mohamad Mouchli [address] [place], [place] 1361707-11-2024 14:52-0400Blood Pressure LocationMohamad Mouchli 452-2498Kufjsy-Lqirw[address] [place], [place] 9212907-11-2024 14:52-0400Diastolic blood ykocuobg49 mm[Hg]Mohamad Mouchli 253-0666Kjefit-Psmpb[address] [place], [place] 9212907-11-2024 14:52-0400Heart rate78 /minMohamad Mouchli 090-9501Ejtuly-Kiuje[address] [place], [place] 9212907-11-2024 14:52-0400Respiratory rate16 /minMohamad Mouchli [phone]-QkzuwPrem[facility]07-11-2024 14:52-0400Systolic blood jyyzdjtf774 mm[Hg]Alex Zeina 818-0338Pddkwp-QjojyPremier Health [facility]05-17-2024 18:58-0400Body .49 [degF]Gwen Dainelson MD Work Phone: [phone]73[facility]05-17-2024 18:58-0400 Diastolic blood eqtyunht29 mm[Hg]Gwen Danielson MD Work Phone: [phone]05-17-2024 18:58-0400 Heart rate52 /Jacqueline Danielson MD Work Phone: [phone]05-17-2024 18:58-0400 Respiratory rate18 /minGwen Danielson MD Work Phone: [phone]90[facility]05-17-2024 18:58-0400 SaO2% (BldA) [Mass fraction]98 %Gwen Danielson MD Work Phone: [phone]20[facility]05-17-2024 18:58-0400 Systolic blood xssooaak666 mm[Hg]Gwen Danielson MD Work Phone: [phone]49[facility]05-17-2024 13:40-0400 Body fdrsgo531.6 cmJoleonardo Danielson MD Work Phone: [phone]00[facility]05-17-2024 13:40-0400 Body mass index (BMI) [Ratio]19.05 kg/g7KwsxkGwen Danielson MD Work Phone: [phone]05-17-2024 13:40-0400 Body evnfjv30.52 kgJoleonardo Danielson MD Work Phone: [phone] Encounters Encounter DateEncounter TypeCare ProviderFacilityStart: 01-13-2025 End: 64-75-1610Kilvru flowsheetCorey Halina DO Work Phone: [facility]BGYNStart: 01-13-2025 End: 10-34-6869Hfgozo flowsheetCorey Halina DO Work Phone: [facility]BGYNStart: 01-13-2025 End: 69-16-4199qkqvvkbnehKCSWW FAZIONot AvailableStart: 01-12-2025 End: 88-76-3430jwnuquqkryBmfzz R FAZIOFacility:FTMCStart: 01-08-2025 End: 74-45-3988iltlhczkjhOowib R FAZIOFacility:FTMCStart: 01-05-2025 End: 65-20-7351uvyhhlicyyYuhjw R FAZIOFacility:FTMCStart: 01-01-2025 End: 58-79-2377yfsjetmpktYdjrq R FAZIOFacility:FTMCStart: 12-31-2024 End: 58-46-0654Xxhipunu flow Primo Wilhelm PA Work Phone: [facility] OBGYNComment on above:Third trimester ([facility]); 33 weeks gestation of ([facility])Start: 12-31-2024 End: 17-18-5937rkbkkvmeiyGGI RAMEYNot AvailableStart: 12-29-2024 End: 81-48-0927rmrvwxmqjhQmgon R FAZIOFacility:FTMCStart: 12-25-2024 End: 28-13-0988dtmsuoozasXlqnv R FAZIOFacility:FTMCStart: 12-22-2024 End: 91-99-4951jpqfpepjmjCdmya R FAZIOFacility:FTMCStart: 12-18-2024 End: 34-36-4241jnkkobouwhIxgzx R FAZIOFacility:FTMCStart: 12-16-2024 End: 14-98-8819Dxneiq flowsheetCorey Halina DO Work Phone: [facility]BGYNStart: 12-16-2024 End: 37-88-1267Zgpnor flowsheetCorey Halina DO Work Phone: [facility]BGYNStart: 12-16-2024 End: 87-83-4431Nvnsxmyt flow sheetCorevikram Meade DO Work Phone: [facility] OBGYNComment on above:Third trimester ([facility]); 31 weeks gestation of ([facility]); Encounter for in vitro fertilization; Hemorrhoids, unspecified hemorrhoid typeStart: 12-16-2024 End: 66-46-6742ghjtzjibdoCUHZF FAZIONot AvailableStart: 12-15-2024 End: 41-25-3423Cilpgllxn encounterSally Fevikram RNMaternal- Medicine at [facility]tart: 12-15-2024 End: 90-28-5803koleqfvnpnQauzp R FAZIOFacility:FTMCStart: 12-11-2024 End: 49-93-4313esgevuaqqfOaygw R FAZIOFacility:FTMCStart: 12-09-2024 End: 34-03-3601Jnrkpz outpatient visit 25 minutesMario Alberto Ortiz MD Work Phone: [phone]-Yypvs Medicine at [facility] Comment on above:30 weeks gestation of (Primary Dx)Start: 12-09-2024 End: 20-24-7030czdqevbafxTALQCPEZ P DOCHEVAProMedica White Hospitaltart: 12-08-2024 End: 07-88-0213rsdkbvhregCpnlh D KastenFacility:FTMCStart: 12-05-2024 End: 47-40-9773TdqnqaFwoucbql P Docheva MD Work Phone: [phone]-Axrce Medicine at [facility] Comment on above:16 weeks gestation of ; Hyperemesis of pregnancyStart: 12-04-2024 End: 30-41-2862WzwxvhRonald Godfrey [facility] Certified Nurse Manufacturing Tech - [facility] ClintonComment on above: renal anomaly, single gestation (Primary Dx); Marijuana use during ; resulting from in vitro fertilization in second trimester; 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Start: 12-02-2024 End: 35-77-9182Czodaf Veena Caldwell ELL TUTOR Work Phone: [facility] [place] [facility]BGYNStart: 12-02-2024 End: 81-58-9485Dnjjij ravenAnthony Caldwell ELL TUTOR Work Phone: [facility] [place] [facility]BGYNStart: 12-02-2024 End: 77-36-9394Geucncnf flow sheetDolores Caldwell ELL TUTOR Work Phone: [facility] [place] OBGYNComment on above:Anemia, unspecified type (Primary Dx); Third trimester ([facility]); 29 weeks gestation of ([facility]); Bipolar 1 disorder (HCC); PTSD (post-traumatic stress disorder)Start: 12-02-2024 End: 18-02-5693wwutkmmbepXETINXHF EBERLYNot AvailableStart: 12-01-2024 End: 73-37-2245qhheejcujzWxqoq R FAZIOFacility:FTMCStart: 12-56-7480uifmpjeyfa Uriel R FAZIOFacility:FTMCStart: 11-24-2024 End: 82-72-1618siatvxpqlpBlpcm R FAZIOFacility:FTMCStart: 11-18-2024 End: 66-20-9816Lzyzyv flowsheetCorey Halina DO Work Phone: [facility] [place] [facility]BGYNStart: 11-18-2024 End: 08-95-9581Ocynqa flowsheetCorey Halina DO Work Phone: [facility] [place] [facility]BGYNStart: 11-18-2024 End: 25-06-3636Pmtpsrie flow sheetCorey Halina DO Work Phone: [facility] [place] OBGYNComment on above:27 weeks gestation of ([facility]); Second trimester ([facility]); Hyperemesis of ([facility]); resulting from in vitro fertilization in second trimester ([facility]); Breech presentation, single or unspecified fetus ([facility])Start: 11-18-2024 End: 26-09-7802zqhbslupkjQFLUV FAZIONot AvailableStart: 11-17-2024 End: 42-41-5484vksrzhxqbiDsmzo R FAZIOFacility:FTMCStart: 11-07-2024 End: 24-96-3867Tzuzmk outpatient visit 25 minutesMario Alberto Ortiz MD Work Phone: [phone]-Hfrvi Medicine at [facility] Comment on above:16 weeks gestation of ; Hyperemesis of pregnancyStart: 11-07-2024 End: 18-10-2516Cfximx Cole Maya CINDYMaternal- Medicine at [facility] HospitalComment on above:Hyperemesis of (Primary Dx); renal anomaly, single gestation; Marijuana use during ; 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; Nausea and vomiting during ; Poor weight gain of , second trimester; In vitro fertilization; 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, antepartumStart: 11-06-2024 End: 88-74-4126enjxhhxmgaNZYAUUJMercy Hospital Paris Ambulatory PPGStart: 10-21-2024 End: 13-07-4673Jdhuew flowsheetCorey Halina DO Work Phone: [facility] [place] [facility]BGYNStart: 10-21-2024 End: 43-24-0334Mjslcr flowsheetCorey Halina DO Work Phone: [facility] [place] [facility]BGYNStart: 10-21-2024 End: 14-69-5697Cyrhasox flow sheetCorey Halina DO Work Phone: noMS [place] OBGYNComment on above:23 weeks gestation of ([facility]); Second trimester ([facility]); Hyperemesis of ([facility]); resulting from in vitro fertilization in second trimester ([facility]); Diabetes mellitus screeningStart: 10-21-2024 End: 16-96-3919gjlrerkiflRXMDU FAZIONot AvailableStart: 10-07-2024 End: 15-01-0136Higxle-up encounterMario Alberto Ortiz MD Work Phone: [phone]-Zwtfs Medicine at [facility] Comment on above:MR abdomen without contrastStart: 10-03-2024 End: 64-66-6857mebxegcbxqRPDZGRJX P DOCHEVAProMedica Courtland HospitalStart: 10-02-2024 End: 93-18-0878Bgdjvj outpatient visit 15 minutesKrupa Jones MD Work Phone: [phone]-Ehnzy Medicine at [facility] Comment on above:Hyperemesis of (Primary Dx); renal anomaly, single gestation; Marijuana use during ; 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Start: 10-02-2024 End: 99-35-1074debanwxuekWFTG E SIMMONDSherman Oaks Hospital and the Gross[facility] Burn Centersarah White Hospitaltart: 10-02-2024 End: 29-66-8321Xwpoeavpi encounterLexi Maya RNMaternal- Medicine at [facility] HospitalStart: 10-02-2024 End: 01-86-4643cxwsyktctgWZPLP [facility] Ambulatory PPGStart: 09-25-2024 End: 77-55-6334Jbyyun flowsheetCorey Halina DO Work Phone: [facility] BCP OBStart: 09-25-2024 End: 72-60-3133Vhgogd flowsheetCorey Halina DO Work Phone: [facility] BCP OBStart: 09-25-2024 End: 27-63-8636Qjgztfxz flow sheetCorey Halina DO Work Phone: [facility] BCP OBComment on above:Second trimester ([facility]); 20 weeks gestation of ([facility])Start: 09-25-2024 End: 52-59-1210wkyagkncqdHPEDU FAZIONot AvailableStart: 09-17-2024 End: 69-64-4297Lobzet Logan Ortiz MD Work Phone: [phone]-Ioxzj Medicine at [facility] Comment on above:Hyperemesis of (Primary Dx); Gastroesophageal reflux disease, unspecified whether esophagitis presentStart: 09-15-2024 End: 37-07-7794vqjxcnkuvnJmiMelisa Costa MD Work Phone: [phone]-Hwmhj Medicine at [facility] Comment on above:Nausea and vomiting during [O21.9] (Primary Dx)Start: 09-10-2024 End: 39-59-4098bldrwmcbewBXAGOGreene Memorial Hospitaltart: 09-09-2024 End: 41-95-0333Nkeaui-up Ignacia Costa MD Work Phone: [phone]-Dlyvv Medicine at [facility] Comment on above:Comprehensive metabolic panel, Magnesium, CBC without diff, Additional followed-up results: 3Start: 09-04-2024 End: 19-75-5084uqcbafcblxQGEWQNEV P DOCHEVAFulton County Health Centertart: 09-02-2024 End: 66-28-8147Zncydy consultation new/estab patient 80 Alvaro Ortiz MD Work Phone: [phone]-Hdujc Medicine at [facility] Comment on above:16 weeks gestation of (Primary Dx); resulting from in vitro fertilization in second trimester; Hyperemesis of ; Cyclical vomiting with nausea; Marijuana use during ; renal anomaly, single gestation; 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); Anxiety during pregnancyStart: 09-02-2024 End: 22-23-5636WpzxjbRonald Maya Maternal- Medicine at [facility] HospitalComment on above:Hyperemesis of (Primary Dx); Poor weight gain of , second trimester; In vitro fertilization; 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, antepartum; Abnormal ultrasound of kidneyStart: 08-26-2024 End: 26-06-2900Cgsvfo flowsheetCorey Halina DO Work Phone: [facility] BCP OBStart: 08-26-2024 End: 49-14-3004Hpikdt flowsheetCorey Halina DO Work Phone: [facility] BCP OBStart: 08-26-2024 End: 31-91-0878Mkhdppoqx Result EncounterGeneric External Data ProviderNOMS External Department UnsolicitedStart: 08-26-2024 End: 52-87-5275Giosdqjs Result EncounterCorey Halina DO Work Phone: noms External Department UnsolicitedStart: 08-26-2024 End: 60-31-2098Hbhkiqx encounter procedureCorey Halina DO Work Phone: noms HealthcareStart: 08-26-2024 End: 81-78-3612Qdpszpfq preventive med est patient 18-39 yrsCorey Halina DO Work Phone: noms BCP OBComment on above:Well woman exam with routine gynecological exam; STD exposure; Second trimester ([facility]); 15 weeks gestation of ([facility]); Screening, , for anatomic survey ([facility])Start: 08-26-2024 End: 19-00-0144nqhaxonaosQXZXP FAZIONot AvailableStart: 08-18-2024 End: 39-83-3546Jrnjy Darshan Ortiz MD Work Phone: [phone]-Cqjbv Medicine at [facility] Start: 08-15-2024 End: 41-07-2679Nzusgnlsbt and management of inpatientJUSTIN A [facility]ertart: 08-14-2024 End: 09-41-5195Sqqipqiok department patient visitMARIELLE A [facility] Centertart: 08-14-2024 End: 26-34-8592Jobrqlcykw and management of inpatientMayra Dobson MD Work Phone: [facility] 4Comment on above:15 weeks gestation of ([facility]) (Primary Dx); Nausea and vomiting, unspecified vomiting type; Chest pain, unspecified typeStart: 08-14-2024 End: 44-02-2749aiaxlvsxciAgvsq D KastenFacility:FTMCStart: 91-55-4871Vymbstbsw department patient visitBk Ruvalcaba ShaanFacility:FTMCStart: 08-14-2024 End: 51-78-7023TqmipauivxlKtwou D Lucina [facility] Start: 08-13-2024 End: 04-28-9591Hmohepkkfr hospital visit by physicianSam 2e Cr Nonv1 Ecg [facility] HospitalComment on above:ArrivedStart: 08-13-2024 End: 56-34-5859Zrtxghsal department patient visitCAMGERSON [facility] Hospitaltart: 08-13-2024 End: 39-75-4364Udjdtujla department patient visitCamsanchezcatailna [facility] DO Work Phone: [facility] Emergency MedicineComment on above:Nausea and vomiting, unspecified vomiting type (Primary Dx)Start: 07-30-2024 End: 75-71-5269Mxzxdt flowsheetCorey Halina DO Work Phone: [facility] BCP OBStart: 07-30-2024 End: 34-96-5437Ajhhsd flowsheetCorey Halina DO Work Phone: [facility] BCP OBStart: 07-30-2024 End: 42-01-0575Qvsnypvj flow sheetCorey Halina DO Work Phone: [facility] BCP OBComment on above:First trimester ; 11 weeks gestation of ; Nausea and vomiting, unspecified vomiting type; Hyperemesis of ; Encounter for in vitro fertilization; Anxiety, generalized (CMS/HCC)Start: 07-30-2024 End: 01-98-7876kaulhdjjgiDQIJW FAZIONot AvailableStart: 07-17-2024 End: 21-30-4736borgcflaffJPTKH CROSBYNot AvailableStart: 07-17-2024 End: 57-91-4220Ujtjjg outpatient visit 5 minutesNoms Bcp Ob Halina NurseNOMS BCP OBComment on above:GA: 24l7iHwsbg: 29-18-4676nspeisrddqCnahap Kiltz [facility]tart: 07-10-2024 End: 24-71-8728Dzmybynnv Result EncounterGeneric External Data ProviderNOMS External Department UnsolicitedStart: 07-10-2024 End: 58-51-1298Rpueptwgg Result EncounterGeneric External Data ProviderNOMS External Department UnsolicitedStart: 07-08-2024 End: 73-47-1604wjonmutsifTIBBP CROSBYNot AvailableStart: 06-30-2024 End: 99-21-0663gznexphfzlEVLHV CROSBYNot AvailableStart: 06-24-2024 End: 69-24-4220Wmzdey outpatient visit 15 minutesCorey Halina DO Work Phone: [facility] OBComment on above:Hospital discharge follow-up; Hyperemesis of ; Hemorrhage in early , antepartum; Subchorionic hematoma in first trimester, single or unspecified fetusStart: 06-24-2024 End: 38-84-3468ouuiioaqosJJWCM FAZIONot AvailableStart: 06-19-2024 End: 39-56-0818vlobjwqspwIR Ronradha QUINNFacility:FTMCStart: 06-19-2024 Emergency department patient visitTim ThomasFacility:FTMCStart: 06-19-2024 End: 75-40-8660NamkjbwhinuNiprbic R MALLICK [facility] Start: 06-16-2024 End: 63-58-0916nlbhnyrdmqNXYGVQ J KILTZFacility:FTMCStart: 06-16-2024 End: 83-99-6323Qtfdfch encounter procedureJADE Aleman [facility] Start: 06-13-2024 End: 10-30-0086zrduxgjeucWG JADE LEDBETTERFacility:FTMCStart: 06-13-2024 End: 51-57-6372Srhkhhc encounter procedureJADE Aleman [facility] Start: 06-07-2024 End: 64-94-6675bcchhenkofGV ROBERT J KILTZFacility:FTMCStart: 06-07-2024 End: 79-72-1512Fpeicgx encounter procedureROBMART Aleman [facility] Start: 06-05-2024 End: 06-45-5317uhenspsabjPJEEZB J KILTZFacility:FTMCStart: 06-05-2024 End: 77-15-5585Jgffkhp encounter procedureROBMART Aleman [facility] Start: 05-31-2024 End: 27-37-4011jjnpwbnalbDGHQLL J KILTZFacility:FTMCStart: 05-31-2024 End: 50-02-6020Jlhpese encounter procedureJADE Aleman [facility] Start: 05-20-2024 End: 67-57-7230ulomvcivgtYVJQGW J KILTZFacility:FTMCStart: 05-20-2024 End: 94-64-4195Zmlseeu encounter procedureROBMART Aleman [facility] Start: 05-13-2024 End: 91-85-5831shjujwugheAA ROBERT J KILTZFacility:FTMCStart: 05-13-2024 End: 65-78-1005Hocyxfc encounter procedureROBMART Aleman [facility] Start: 05-05-2024 End: 44-78-5966yghszuciwqOJ ROBERT J KILTZFacility:FTMCStart: 05-05-2024 End: 21-79-1108Phwcuqz encounter procedureROBMART Aleman [facility] Start: 04-30-2024 End: 96-58-2513mxokxpkmyzNRBrant Beaulieucility:FTMCStart: 04-30-2024 End: 84-21-6944Otqpigm encounter procedureROBMART Love [facility] Start: 04-18-2024 End: 26-34-0179Jqztwbvpf Result EncounterGeneric External Data ProviderNOMS External Department UnsolicitedStart: 04-18-2024 End: 14-15-5580Dawpmfhxt Result EncounterGeneric External Data ProviderNOMS External Department UnsolicitedStart: 04-16-2024 End: 19-91-3650Qgecsqwlm Result EncounterGeneric External Data ProviderNOMS External Department UnsolicitedStart: 04-16-2024 End: 63-40-9366Gcdqcvhcs Result EncounterGeneric External Data ProviderNOMS External Department UnsolicitedStart: 04-14-2024 End: 76-72-5082Xvcxlw outpatient visit 25 minutesPeTan MD Work Phone: [facility] [place] FMComment on above:Bipolar affective disorder, currently manic, moderate (CMS/HCC) (Primary Dx)Start: 04-14-2024 End: 20-28-2750frhrjpakwoHGYAB D CROSBYNot AvailableStart: 04-14-2024 End: 98-18-4198Sooxeenmt Result EncounterGeneric External Data ProviderNOMS External Department UnsolicitedStart: 04-14-2024 End: 72-89-8680Ksxqxujot Result EncounterGeneric External Data ProviderNOMS External Department UnsolicitedStart: 04-08-2024 End: 53-39-4083fddgsdrlfgSC JADE LEDBETTERFacility:FTMCStart: 04-08-2024 End: 52-67-0646Letboas encounter procedureROBMART LEDBETTERLakehealth Tripoint Medical Center Start: 04-08-2024 End: 40-60-8478Qesdtznkl Result EncounterGeneric External Data ProviderNOMS External Department UnsolicitedStart: 04-08-2024 End: 42-95-0390Psgxrcaef Result EncounterGeneric External Data ProviderNOMS External Department UnsolicitedStart: 03-14-2024 End: 96-09-4220Iidkypbld Result EncounterGeneric External Data ProviderNOMS External Department UnsolicitedStart: 03-14-2024 End: 10-49-7957Cevmtdrpj Result EncounterGeneric External Data ProviderNOMS External Department UnsolicitedStart: 03-12-2024 End: 32-48-5705Tpdw/qhp telephone evaluation 5-10 minCorey Halina DO Work Phone: noms BCP OBComment on above:Fallopian tube disorder; Anovulation; Female infertilityStart: 02-18-2024 End: 73-32-4530axuwwphmmqQabsu Luisito CollazoFacility:FTMCStart: 02-18-2024 End: 52-31-2008Cirdupk encounter procedurePeter Luisito Collazo [facility] Start: 02-18-2024 End: 08-85-5187Oadsocczn Result EncounterPeter Luisito Collazo MD Work Phone: noms External Department UnsolicitedStart: 02-18-2024 End: 25-40-5208Cnzxewfcl Result EncounterPeter Luisito Collazo MD Work Phone: noms External Department UnsolicitedStart: 02-15-2024 End: 02-94-5860Twqqyf outpatient visit 15 minutesCarol GOMEZ Work Phone: noms NE FMComment on above:Myalgia (Primary Dx)Start: 02-15-2024 End: 77-51-7667yztadmzobtWAZWNNI J SOMMERSNot AvailableStart: 02-13-2024 End: 89-23-5804Ayyouqqbv Result EncounterGeneric External Data ProviderNOMS External Department UnsolicitedStart: 02-13-2024 End: 02-06-0092Usqzuzmiu Result EncounterGeneric External Data ProviderNOMS External Department UnsolicitedStart: 01-16-2024 End: 20-14-1761Wsbx/qhp telephone evaluation 5-10 minCorey Halina DO Work Phone: noms BCP OBComment on above:Female infertility; Vaginal odorStart: 12-24-2023 End: 68-29-8177Ebylxtunf Result EncounterGeneric External Data ProviderNOMS External Department UnsolicitedStart: 12-24-2023 End: 05-16-2251Lqkrwshxz Result EncounterGeneric External Data ProviderNOMS External Department UnsolicitedStart: 12-03-2023 End: 00-07-3639Eumjxo flowsheetCorey Halina DO Work Phone: noms BCP OBStart: 12-03-2023 End: 88-74-8573Qoqlwg flowsheetCorey Halina DO Work Phone: noMS BCP OBStart: 12-03-2023 End: 17-28-5973Pobtxl outpatient visit 15 minutesCorey Halina DO Work Phone: noms BCP OBComment on above:Fallopian tube disorder (Primary Dx)Start: 11-08-2023 End: 62-64-6627Cjyptlzfd Result EncounterCorey Halina DO Work Phone: noms External Department UnsolicitedStart: 11-08-2023 End: 80-88-2080Vibazhjrw Result EncounterCorey Halina DO Work Phone: noms External Department UnsolicitedStart: 10-15-2023 End: 09-13-8861hfhbnvycrgTmixokt A. MouchliFacility:FTMCStart: 10-15-2023 End: 23-05-0971Srfzrya encounter procedureModarlyn Knutson [facility] Start: 09-13-2023 End: 47-46-4763pylgziesmnWovgvvt A. MouchhilarioFacility:[facility] DHStart: 09-13-2023 End: 18-55-0645Ydksnax encounter procedureModarlyn Knutson [phone]-RmeoaSelect [facility] Start: 47-88-6775mzbcftvvmyGtffzbk Mouchli Facility:[facility] DHStart: 16-09-5099Ugcsftodl encounterKarina Vincent MD Work Phone: EndocrinologyComment on above:ResultsStart: 08-04-2023 End: 00-37-4348Gdpgadoxm Result EncounterGeneric External Data ProviderNOMS External Department UnsolicitedStart: 08-04-2023 End: 22-05-5307Upqdrsnxe Result EncounterGeneric External Data ProviderNOMS External Department UnsolicitedStart: 07-20-2023 End: 85-45-2271Nwierihlj department patient visitJoleonardo Danielson MD Work Phone: [facility] Emergency MedicineComment on above:Nausea and vomiting, unspecified vomiting type (Primary Dx); Gastritis, presence of bleeding unspecified, unspecified chronicity, unspecified gastritis typeStart: 06-13-2023 End: 83-78-1871Fyrfvbgm HealthDienrrique Vincent MD Work Phone: EndocrinologyComment on above:Prolactinoma (HCC) (Primary Dx); 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HCC); Elevated prolactin levelStart: 05-28-2023 End: 82-42-9780Qemlqodwf Result EncounterGeneric External Data ProviderNOMS External Department UnsolicitedStart: 05-28-2023 End: 18-34-1931Rsthvozpd Result EncounterGeneric External Data ProviderNOMS External Department UnsolicitedStart: 05-23-2023 End: 83-59-4447Snddgyrat Result EncounterCorey Halina DO Work Phone: noms External Department UnsolicitedStart: 05-23-2023 End: 05-68-8859Eggsyhnid Result EncounterCorey Halina DO Work Phone: noms External Department UnsolicitedStart: 03-19-2023 Patient encounter procedureCorey Halina DO Work Phone: noms HealthcareStart: 03-22-2020 End: 36-86-1832Juyylbu encounter procedureGREGORY MICHELLEFacility:P1Myvcx: 47-81-3494Unhnjuxbf for preprocedural laboratory examinationGREGORY TROYPremier Healthtart: 89-13-4259Daannvbfz for other preprocedural examination [facility] Hospitaltart: 02-23-2020 End: 73-96-7106Riotybi encounter procedureGREGCOLTON Cunhacility:F2Cismc: 02-20-2020 End: 63-45-5163Qfxrbck encounter procedureGREGCOLTON Cunhacility:A3Sseyx: 02-16-2020 End: 54-73-7773Onwdgve encounter procedureGREGCOLTON Cunhacility:S6Tzpxxavdr for other preprocedural examinationEureka Community Health Services / [facility] HospitalEncounter for preprocedural laboratory examinationMarion Hospital Procedures DateProcedureProcedure DetailPerforming ClinicianStart: 67-26-3668Iecju dip stick/tablet rgnt non-auto w/o micrscpAmy Melonie PA Work Phone: Start: 79-37-0165Pwjeg dip stick/tablet rgnt non-auto w/o micrscpCorey Halina DO Work Phone: Start: 07-17-0296Epees dip stick/tablet rgnt non-auto w/o micrscpKristina Td ELL TUTOR Work Phone: Start: 93-25-5256Qsgga dip stick/tablet rgnt non-auto w/o micrscpCorey Halina DO Work Phone: Start: 17-92-0409Xjoel dip stick/tablet rgnt non-auto w/o micrscpCorey Halina DO Work Phone: Start: 22-81-5803Pxymw dip stick/tablet rgnt non-auto w/o micrscpCorey Halina DO Work Phone: Start: 09-10-2024 End: 45-02-2107Wdewbwwnezqf online assessment and managementHyperemesis of pregnancyMaria T Lambert RD Work Phone: comment on above:Hyperemesis of ; Poor weight gain of , second trimesterStart: 29-05-6530MDDOSVDNE VAGINITIS (HTRX)Uriel Palomareso DO Work Phone: Start: 75-25-2184Iucqq dip stick/tablet rgnt non-auto w/o micrscpCorey [facility] DO Work Phone: Start: 36-52-0121CJW,APTIMA HPV,AGE GDLNCorey [facility] DO Work Phone: Start: 14-38-4260Coomtqovbap observation [Identifier] in Cervix by Cyto Taisha Lambert RD Work Phone: Start: 53-04-3394Gtyeq chlamydia trachomatis amplified probe Juhi Claire MD Work Phone: Start: 09-59-6426Zhsw tthrc r-t 2d w/wom-mode compl spec&colr Han Obregon MD Work Phone: Start: 25-36-3388Jmgtq metabolic panel calcium total Amine Alethea ELLISON Work Phone: Start: 65-11-0724Kqyaruyoxk exam abdomen 1 Ramona Claire MD Work Phone: Start: 10-22-8514Jq uterus limited 1/> fetusesAlexis N Bisi PA-C Work Phone: Start: 74-41-2054Yhmxe test visual color cmprsn methsAlexis N Bisi PA-C Work Phone: [phone]: 50-74-9771Akit tst prsmv instrmnt chem analyzers pr Ammon Claire MD Work Phone: [phone]: 69-58-2886WHUSK URINE DORAN TUBEAlexis N Bisi PA-C Work Phone: Start: 89-40-4529Zcptgnfzmn complete W Reflex Culture panel - UrineAlexis N Bisi PA-C Work Phone: Start: 99-77-4884Jqdav dip stick/tablet reagent auto microscopyAlexis N Bisi PA-C Work Phone: Start: 36-96-3862Vxwylwzuoexe chorionic quantitative León N Bisi PANDA Work Phone: Start: 82-10-7497Jqldieez bldAlexis N Bisi PANDA Work Phone: Start: 61-20-6647Tei routine ecg w/least 12 lds trcg only w/o i&rMlaura Dobson MD Work Phone: Start: 14-82-6752Uyh routine ecg w/least 12 lds trcg only w/o i&rCameron D Lemasters DO Work Phone: start: 43-12-4613Cxapnjqoci exam chest single view Milan D Lemasters DO Work Phone: start: 01-41-3586Weyeljfjus complete W Reflex Culture panel - UrineCameron D Lemasters DO Work Phone: start: 95-08-7322Euoir dip stick/tablet reagent auto microscopyCameron D Lemasters DO Work Phone: start: 67-72-7238Bepcuqzpajozb metabolic panelCameron D Lemasters DO Work Phone: start: 17-46-4364Dqnnk dip stick/tablet rgnt non-auto w/o micrscpCorey Halina DO Work Phone: Start: 29-84-9116RRF TESTCorey Halina DO Work Phone: Start: 06-24-2024 End: 49-88-0084Yodwu dip stick/tablet rgnt non-auto w/o micrscpCorey Halina DO Work Phone: Start: 16-84-1036FT PELVIS TRANSVAGINALGeneric External Data ProviderStart: 96-00-8680QV PELVIS TRANSVAGINALGeneric External Data ProviderStart: 02-36-7484TT PELVIS TRANSVAGINALGeneric External Data ProviderStart: 26-19-6993TK PELVIS TRANSVAGINALGeneric External Data Provider Start: 11-16-3492Ffrjfzno Franklin Ortiz MD Work Phone: Start: 80-82-6201Exinr metabolic panel calcium total Uriel R Halina DO Work Phone: Start: 61-90-3434Kgnyhtn function panelCorey R Halina DO Work Phone: Start: 24-45-9446GLF 1&2 AB/AG SCREEN (P24 AG)Not In System Ref ProvStart: 90-51-6535Wesl ia hepatitis b surface antigenNot In System Ref ProvStart: 39-53-0934ZALSCVOL TOTAL(UNKNOWN SYPHILIS STATUS)Not In System Ref ProvStart: 76-37-8108EBLR AND SCREENNot In System Ref ProvStart: 03-14-2024 MLR HEMOGLOBIN Q5UTnojuwl External Data ProviderStart: 13-45-5473VEMV CBC W/ AUTO DIFFPeTan MD Work Phone: start: 24-35-1782YNXU JESUS INDIVIDUAL ABSCarolyne Collazo MD Work Phone: start: 61-06-6257JGGR RF QUANTPeTan MD Work Phone: start: 09-76-7489GEPU WRITTEN AUTHORIZATIONPeTan MD Work Phone: start: 97-06-0072RL CATHETERIZATION AND INTRODUCTION FOR SONOHYSTEROGRAPHY CHARGEGeneric External Data ProviderStart: 02-18-2024 SONOHYSTEROGRAPHYGeneric External Data ProviderStart: 52-06-8384AOA THYROID STIM HORMONEGeneric External Data ProviderStart: 96-05-3450ANE PREG QUANT HCGGeneric External Data ProviderStart: 59-65-1158NZ HYSTEROSALPINGOGRAMCorey Halina DO Work Phone: Start: 95-85-4402XL HYSTEROSALPINGOGRAPHYGeneric External Data ProviderStart: 43-04-6633MNI PREG QUANT HCGCorey Halina DO Work Phone: Start: 41-45-3713QPX PROGESTERONEGeneric External Data ProviderStart: 61-52-5194FhrinztseodSijamgx Joseli Start: 35-24-9267JhiykzwnwhkqqkcmiidnziodfaRclzrvc Mouchli Start: 63-26-0812Flf brain brain stem w/o w/contrast materialGeneric External Data ProviderStart: 71-81-8763KZ CHEST ABDOMEN PELVIS W IV CONTRASTJOSEF LOWEStart: 91-44-7150Rjfovau [Moles/volume] in Serum or Plasma GWEN LOWEStart: 15-85-9025KC CHEST 1 VIEWJOSEF LOWEStart: 52-92-4663OLMA SCREEN,URINEJOSEF LOWEStart: 83-80-7067PTYTT URINE DORAN TUBEJOSEF LOWEStart: 93-51-0786HBNWMYLDCA MICROSCOPIC WITH REFLEX CULTUREJOSEF LOWEStart: 07-20-2023 URINALYSIS WITH REFLEX CULTURE AND MICROSCOPICJOSEF LOWEStart: 33-02-8040Cu thorax w/contrast materialAbiodun Ochoa PA-C Work Phone: Start: 38-11-2141IED W Auto Differential panel - Blood GWEN LOWEStart: 65-63-5603Vpwuslljmkbzx metabolic 2000 panel - Serum or Plasma GWEN LOWEStart: 77-08-5861RTRZL CHORIONIC GONADOTROPIN, SERUM QUANTITATIVEJOSEF LOWEStart: 08-95-0441Ubhkeuv [Moles/volume] in Serum or PlasmaJOSEF LOWEStart: 24-90-4045Tehzch [Enzymatic activity/volume] in Serum or PlasmaJOSEF LOWEStart: 22-24-3830FFIHFGWY I, HIGH SENSITIVITYJOSEF LOWEStart: 22-04-0394LDH 12-LEAD GWEN LOWEStart: 24-30-8030QBCYNJ PERIPHERAL IVJOSEF LOWEStart: 19-68-8216Ftanm of lactateAbiodun Ochoa PA-C Work Phone: Start: 65-13-7339Jiofcnkvys exam chest single viewAbiodun Ochoa PA-C Work Phone: Start: 70-65-2506Udkj tst prsmv instrmnt chem analyzers pr dateAbiodun Ochoa PA-C Work Phone: Start: 05-19-6752Xepkwkbgrv complete W Reflex Culture panel - UrineAbiodun Ochoa PA-C Work Phone: Start: 91-72-2062Toddl dip stick/tablet reagent auto microscopyComaria ines Ochoa PA-C Work Phone: Start: 50-01-9920Uepapncbtbtkz metabolic panelComaria ines Ochoa PA-C Work Phone: Start: 57-55-0703Too routine ecg w/least 12 lds trcg only w/o i&rCody Davina Ochoa PA-C Work Phone: Start: 46-27-9780AKO HEAD/BRAIN WO/W CONTRGeneric External Data ProviderStart: 39-66-4285YI PELVIS W/ TRANSVAGINALCorey Halina DO Work Phone: Start: 77-93-1960YUZ CBC WITH AUTO DIFFCorey Halina DO Work Phone: Start: 36-87-0636MPE THYROID STIM HORMONEGeneric External Data ProviderStart: 40-28-3614HEE PREG QUANT HCGGeneric External Data ProviderStart: 76-09-0477ZGK PROLACTINCorey Halina DO Work Phone: Start: 94-36-9123Deyrokydmwy observation [Identifier] in Cervix by Cyto stainGeneric ProviderStart: 04-02-9295Snku cerv/vag auto thin layer prep mnl screenCorey Halina DO Work Phone: Tonsillectomy and adenoidectomyPeter Zay Plan of Treatment DateCare ActivityDetailAuthorStart: 58-71-7140Sbkmjr Vaccines (1 of 2)Zoster Vaccines (1 of 2)[facility] CenterStart: 00-29-6036Bgdautewf for malignant neoplasm of cervixGalion Community HospitalUniversity Hospitals Health System SystemStart: 63-64-0836Fqzqrwmci for malignant neoplasm of cervixNOMS HealthcareStart: 40-14-1078Ljxmtdn ScreeningTobacco ScreeningOhioHealth Doctors Hospital SystemStart: 20-82-2321Nnhaghs ScreeningTobacco ScreeningOhioHealth Doctors Hospital SystemStart: 11-07-2025 End: 10-96-4061YN MFM with or without consultUS MFM with or without consult Imaging Routine Hyperemesis of renal anomaly, 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 Nausea and vomiting during Poor weight gain of , second trimester In vitro fertilization 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, antepartum Expected: 11/07/2025 (Approximate),Expires: 11/07/2025 [facility] Work Phone: comment on above:Expected: 11/07/2025 (Approximate), Expires: 11/07/2025Start: 89-96-6189Ocnra BMI ScreeningAdult BMI Screening [facility] SystemStart: 35-46-8460Hlpbc BMI ScreeningAdult BMI Screening [facility] SystemStart: 82-25-3124Gwabnvn ScreeningTobacco Screening [facility] SystemStart: 80-88-5472Ekhje BMI ScreeningAdult BMI Screening [facility] SystemStart: 28-42-4632Mjspjog ScreeningTobacco Screening [facility] SystemStart: 09-02-2025 End: 30-13-4644JD MFM with or without consultUS MFM with or without consult Imaging Routine Hyperemesis of Poor weight gain of , second trimester In vitro fertilization 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, antepartum Abnormal ultrasound of kidney Expected: 09/02/2025 (Approximate), Expires: 09/02/2025[facility] Work Phone: comment on above:Expected: 09/02/2025 (Approximate), Expires: 09/02/2025Start: 72-67-1970Wmkqrur ScreeningTobacco ScreeningOhioHealth Doctors Hospital SystemStart: 01-20-2025 End: 47-23-6353Hfetekmoyvgl consultation with svrbhac5601/20/2025 2:00 PM EST Telemedicine Maternal- Medicine at [facility] [address] [place] [phone] Mario Alberto Ortiz MD [address] [place] [address], [place] [address] [facility]: 01-13-2025 End: 81-69-2148Aponnbf encounter procedureNOMS [place] OBGYNComment on above: ArrivedStart: 12-31-2024 End: 99-56-1423Gsmzotb encounter sbwpaltka26/29/2025 8:50 AM EDT Routine [facility] [address] [facility] [place], [id number] Dary Wilhelm PA [address] [place] [address] NOMS [facility] OBGYNStart: 12-31-2024 End: 94-71-0528Wrlqldohljih / ancillary services uwappchbrd24/29/2025 8:00 AM EDT Ancillary Procedure [facility] [address] [facility] [address] [place] [address] NOMS [facility] OBGYNStart: 12-30-2024 End: 97-87-8184Xexvjjy encounter tluczuuvw83/28/2025 9:15 AM EDT Appointment [facility] - Ultrasound [address] [place] [address] YanPdaklaLima Memorial Hospital - UltrasoundStart: 20-43-7874RHZ High Risk: (Elderly (60+) or Population) (1 - Risk 1-dose series)RSV High Risk: (Elderly (60+) or Population) (1 - Risk 1-dose series)[facility] CenterStart: 12-16-2024 End: 69-53-9310UC for pregnancyUS OB follow up transabdominal approach Imaging Routine Encounter for in vitro fertilization Expected: 12/16/2024, Expires: 04/18/2025[facility] Work Phone: comment on above:Expected: 12/16/2024, Expires: 04/18/2025Start: 12-16-2024 End: 54-11-7808Brcnqke encounter jbtabkctk80/14/2025 9:30 AM EDT Routine [facility] [address] [place], [id number] Uriel Meade DO [address] [facility] [place] [address] NOMHiren MCCORMACKtart: 12-09-2024 End: 91-40-6656Yjnoffhgdoqr consultation with qozadoc3812/09/2024 11:30 AM EDT Telemedicine Maternal- Medicine at [facility] [address] [place] [address] Mario Alberto Ortiz MD [address] [facility], [address] [place] [address] [facility]: 12-04-2024 End: 19-99-2112PX MFM with or without consultUS MFM with or without consult Imaging Routine renal anomaly, 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 Expected: 12/04/2024, Expires: 12/04/2025[facility] Work Phone: comment on above:Expected: 12/04/2024, Expires: 12/04/2025Start: 12-04-2024 End: 44-27-0597Enwjxrt encounter kuioqyruu61/02/2025 9:15 AM EDT Appointment [facility] [place] [address] [facility] [address] [place] [address] [phone] Medicine [place] ClintonStart: 12-02-2024 End: 27-67-5128Xczjcwg encounter procedureNOMS [place] OBGYNComment on above: ArrivedStart: 11-18-2024 End: 17-62-5899NC biophysical profile w non stress testUS biophysical profile w non stress test Imaging Routine resulting from in vitro fertilization in second trimester ([facility] Expected: 11/18/2024 (Approximate), Expires: 05/18/2025[facility] Work Phone: comment on above:Expected: 11/18/2024 (Approximate), Expires: 05/18/2025Start: 11-18-2024 End: 64-03-9087Gpjplnw encounter procedureNOMS [place] OBGYNComment on above: ArrivedStart: 11-06-2024 End: 91-21-2062Ofgnxzp encounter yrnjljqsb51/04/2025 9:15 AM EDT Appointment [facility] [place] [address] [facility] [address] [place] [address] Maternal Medicine [place]: 11-03-2024 COVID-19 Vaccine ( season)COVID-19 Vaccine ( season)[facility] HealthcareStart: 52-72-0961Rgqsaoyfy vaccinationLDS HOSPITAL HealthcareStart: 10-21-2024 End: 32-24-9416BDM panel - Blood by Automated countCBC Lab Routine Diabetes mellitus screening Expected: 10/21/2024 (Approximate), Expires: 10/21/2025[facility] Work Phone: comment on above:Expected: 10/21/2024 (Approximate), Expires: 10/21/2025Start: 10-21-2024 End: 42-27-3743Qwrffrotlhv of glucose 1 hour after glucose challenge for glucose tolerance testGlucose tolerance, 1 hour Lab Routine Diabetes mellitus screening Expected: 10/21/2024 (Approximate), Expires: 10/21/2025[facility] HealthcareComment on above:Expected: 10/21/2024 (Approximate), Expires: 10/21/2025Start: 10-21-2024 End: 09-45-3447Vhbmnow encounter procedureNOMS BCP OBComment on above:Arrived Start: 66-34-7753Ejufawaibl hospital visit by qsxdtjlpo85/01/2025 9:15 AM EDT Hospital Encounter [facility] - MRI Imaging [address] [place] [address] GigUnexdo [facility] - MRI ImagingStart: 10-02-2024 End: 96-05-5284Yowjcfyocsfb consultation with brbntge9510/02/2024 2:30 PM EDT Telemedicine Maternal- Medicine at [facility] [address] [place] [phone] Krupa Jones MD [address] [facility], [address] [place] [address] [facility]: 10-02-2024 End: 17-84-5374Wchpqqv encounter waxkgsggu93/31/2025 9:45 AM EDT Appointment [facility] [place] [address] [facility] [address] [place] [address] [phone] Medicine [place]Start: 09-25-2024 End: 28-76-7742Tmqrpje encounter procedureNOMS BCP OBComment on above:Arrived Start: 09-24-2024 End: 59-73-4140Rpojdht encounter exwzdrerp22/23/2025 3:00 PM EDT Office Visit [facility]CP OB [address] [place] [address] Uriel Meade, DO [address] [place] [address] NOMS BCP OBStart: 09-17-2024 End: 64-04-3233UG Abdomen WO contrastMR abdomen without contrast Imaging Routine Hyperemesis of Gastroesophageal reflux disease, unspecified whether esophagitis present Expected: 09/17/2024, Expires: 09/17/2025[facility] Work Phone: comment on above:Expected: 09/17/2024, Expires: 09/17/2025Start: 09-17-2024 End: 08-97-6496JI Chest WO contrastMR chest without contrast Imaging Routine Hyperemesis of Gastroesophageal reflux disease,unspecified whether esophagitis present Expected: 09/17/2024, Expires: 09/17/2025[facility] SystemComment on above:Expected: 09/17/2024, Expires: 09/17/2025Start: 09-10-2024 End: 10-25-3403Frlggtznlmtv consultation with qktlqpu5109/10/2024 8:00 AM EDT Telemedicine Maternal- Medicine at [facility] [address] [place] [address] Maria T Lambert, ROSEMARY [address], [address] [place] [id number] [facility]: 87-89-8994Xxdshrxlws hospital visit by qcoukompe89/03/2025 9:30 AM EDT Hospital Encounter [facility] - Ultrasound [address] [place] [address] [facility] - UltrasoundStart: 09-02-2024 End: 90-06-2742LJ AbdomenUltrasound abdomen complete Imaging STAT 16 weeks gestation of Hyperemesis of Expected: 09/02/2024, Expires: 09/02/2025[facility] Work Phone: comment on above:Expected: 09/02/2024, Expires: 09/02/2025Start: 09-02-2024 End: 70-44-2213Rofhtmr encounter uyeziuufr04/01/2025 8:45 AM EDT Office Visit Maternal- Medicine at [facility] [address] [place] [address] Mario Alberto Ortiz MD [address], [address] [place] [address] [facility]: 09-02-2024 End: 78-42-5565Aathcgm encounter /01/2025 7:30 AM EDT Appointment [facility] [address] [place] [address] [phone] Hospital US ImagingStart: 2024 Screening for malignant neoplasm of cervixHPV/CotestNOMS HealthcareStart: 08-26-2024 End: 63-79-9902Nweym fetoprotein, maternalAlpha fetoprotein, maternal Lab Routine Second trimester ([facility]) Expected: 08/26/2024 (Approximate), Expires: 10/26/2024[facility] Work Phone: comment on above:Expected: 08/26/2024 (Approximate), Expires: 10/26/2024Start: 08-26-2024 End: 37-69-8022Lvwystc encounter procedureNOMS BCP OBComment on above:Arrived Start: 07-30-2024 End: 26-56-3704Cefzwgz encounter procedureNOMS BCP OBComment on above:Arrived Start: 07-17-2024 End: 15-88-8371vzyoilvgfq92/15/2025 2:30 PM EDT Initial [facility] [address] [place] [address] NOMS BCP OBStart: 06-30-2024 End: 44-82-3175Tkdgkgjbietr / ancillary services /28/2025 10:00 AM EDT Ancillary Procedure [facility] [address] [place], [place] [address] NOMS BCP OBStart: 06-24-2024 End: 49-56-9591WN Pelvis transvaginalUS OB transvaginal Imaging Routine Hemorrhage in early , antepartum Subchorionic hematoma in first trimester, single or unspecified fetus Expected: 06/24/2024, Expires: 09/23/2024 [facility] Work Phone: comment on above:Expected: 06/24/2024, Expires: 09/23/2024Start: 03-26-2024 End: 62-79-2362Qsrjtrm encounter zijppgjvn60/22/2025 1:00 PM EST Office Visit [facility] [address] [facility] [place] [address] Uriel Meade, DO [address] [place], [place] [address] NOM[facility] OBStart: 03-24-2024 End: 89-43-6508Ttdendh encounter hahchbjoz60/20/2025 4:00 PM EST Office Visit [facility] [address] [place] [phone] Uriel Meade, DO [address] [place], [place] [id number] [facility] OBStart: 02-15-2024 End: 15-72-9858Ujvwpnzzkmyr consultation with ynzgtac9202/15/2024 10:00 AM [facility] [address] [place] [id number] Carol Magaña PA [address] [place] [address] [facility] FMStart: 11-22-2023 End: 69-59-6129Pqehnyb encounter ybktszlyy73/19/2024 4:00 PM EDT Office Visit [facility] [address] [place] [id number] Carolyne Collazo MD [address] [place] [address] [facility] NE FMStart: 11-14-8387QDATF-19 Vaccine ( season)COVID-19 Vaccine ( season)[facility] CenterStart: 34-86-8520Drktrzzdi vaccinationKnox Community Hospitaltart: 07-11-2023 End: 48-85-5688Ldaahmsfdxehw [Mass/volume] in PlasmaACTH BLD Lab Routine 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) Expected: 07/11/2023, Expires: 10/10/2023[facility] ClinicComment on above:Expected: 07/11/2023, Expires: 10/10/2023Start: 12-67-3774Yxsmxqbjax Health ScreeningBehavioral Health ScreeningKnox Community Hospitaltart: 91-62-7699Jirop-19 Vaccine () Covid-19 Vaccine ()[facility] Hospitaltart: 23-66-6365SSnZ,Tdap and Td Vaccines (3 - Td or Tdap)DTaP,Tdap and Td Vaccines (3 - Td or Tdap) [facility]: 49-81-3911EAwP/Tdap/Td Vaccines (3 - Td or Tdap) DTaP/Tdap/Td Vaccines (3 - Td or Tdap)[facility]: 84-39-7274Yrgag microalbumin profileDTaP,Tdap,Td Vaccine (3 - Td or Tdap) [facility]: 88-41-8899Hedcetkhf for malignant neoplasm of cervix [facility] Hospitaltart: 33-70-3960Xozhegqdq B Vaccine (3 of 3 - 19+ 3-dose series)Hepatitis B Vaccine (3 of 3 - 19+ 3-dose series)[facility] Hospital[facility]: 86-25-8548Rcjucesva B Vaccines (3 of 3 - 19+ 3-dose series)Hepatitis B Vaccines (3 of 3 - 19+ 3-dose series)[facility]: 05-12-2014 Hepatitis A Vaccines (2 of 2 - 2-dose series)Hepatitis A Vaccines (2 of 2 - 2- dose series)[facility]: 35-59-3600Gqejrosucvcu Vaccine: Pediatrics (0 to 5 Years) and At-Risk Patients (6 to 64 Years) (1 of 2 - PCV)Pneumococcal Vaccine: Pediatrics (0 to 5 Years) and At-Risk Patients (6 to 64 Years) (1 of 2 - PCV)[facility]: 82-15-6339Iqqiz BMI Screening Adult BMI ScreeningUNC Health Rextart: 35-34-9634Xqugyojfd C screening Hepatitis C ScreeningKnox Community Hospitaltart: 61-99-3015NXV screeningHIV Screening [facility] Hospitalt[facility]: 94-94-9534Gsyhrvl of varicella vaccinationVaricella Vaccines (2 of 2 - 13+ 2-dose series)[facility] HospitalStart: 92-99-3529Qlcowuzeu vaccinationVaricella Vaccines (2 of 2 - 13+ 2-dose series)[facility]: 97-06-5824AIhG/Tdap/Td Vaccines (3 - Td or Tdap)DTaP/Tdap/Td Vaccines (3 - Td or Tdap)[facility] HealthcareStart: 59-60-9672Lbnrxbsuut Screening Depression ScreeningUNC Health Rextart: 15-63-9876Nulawcqpvzcl Vaccine: Pediatrics (0 to 5 Years) and At-Risk Patients (6 to 64 Years) (1 of 2 - PCV)Pneumococcal Vaccine: Pediatrics (0 to 5 Years) and At-Risk Patients (6 to 64 Years) (1 of 2 - PCV)[facility]: 10-58-2483VAS Vaccines (2 of 3 - 4-dose series)IPV Vaccines (2 of 3 - 4-dose series)[facility]: 03-82-7176QPI screeningHIV ScreeningUnMetroHealth [facility]: 19-18-7159Pxblh panelLipid PanelUnMetroHealth [facility] Center: 34-76-2882Qxpjyg Adult PhysicalYearly Adult PhysicalUnHenry County Hospital End: 78-19-9024Hyxhhlzvj UltrasoundAbdominal Ultrasound Procedures STAT Once for 1 Occurrences starting 08/15/2024 until 08/15/2024[facility] Service Area Work Phone: Comment on above:Once for 1 Occurrences starting 08/15/2024 until 08/15/2024 End: 76-13-6996RRR panel - Blood by Automated countCBC without diff Lab Routine 16 weeks gestation of Hyperemesis of 1 Occurrencesstarting 09/02/2024 until 09/02/2025[facility] HospitalComment on above:1 Occurrences starting 09/02/2024 until 09/02/2025BC W Auto Differential panel - BloodCBC and differential Lab Routine Anemia, unspecified type Ordered: 12/02/2024[facility] Work Phone: comment on above:Ordered: 12/02/2024HLAMYDIA TRACHOMATIS (GENITO/STI)CHLAMYDIA TRACHOMATIS (GENITO/STI) Lab Routine STD exposure Ordered: 08/26/2024[facility] HospitalComment on above:Ordered: 08/26/2024 End: 52-71-5952Rdqawarbcrzqw metabolic 2000 panel - Serum or PlasmaComprehensive metabolic panel Lab Routine 16 weeks gestation of Hyperemesis of 1 Occurrences starting 09/02/2024 until 09/02/2025[facility] SystemComment on above:1 Occurrences starting 09/02/2024 until 09/02/2025 End: 24-37-9795Wkgxccqllzxcmt vitamin b-12Vitamin B12 Lab Routine 16 weeks gestation of Hyperemesis of 1 Occurrences starting 09/02/2024 until 09/02/2025[facility] SystemComment on above:1 Occurrences starting 09/02/2024 until 09/02/2025ytology Cervical or vaginal smear or scraping studyPap Smear Pathology and Cytology Routine Well woman exam with routine gynecological exam Ordered: 08/26/2024[facility] HealthcareComment on above: Ordered: 08/26/2024ECG 12 leadECG 12 lead ECG STAT 07/20/2023 2:57 PM [facility] Work Phone: End: 46-66-5968UPJ 12 [facility] Work Phone: Comment on above:Once for 1 Occurrences starting 08/13/2024 until 08/13/2024ECG 12 leadECG 12 lead ECG STAT 08/15/2024 10:42 AM [facility] Work Phone: End: 72-54-6327Yluqxtjdyuoorvmgm, 12-lead PRN [facility] Work Phone: Comment on above:As needed until discontinued starting 08/15/2024Once for 1 Occurrences starting 08/15/2024 until 08/15/2024 End: 73-14-7285Vdwtg Urine [facility] Work Phone: Comment on above:Once for 1 Occurrences starting 07/20/2023 until 07/20/2023 End: 93-11-7992Annzf Urine [facility] Work Phone: Comment on above:Once for 1 Occurrences starting 08/13/2024 until 08/13/2024 End: 29-72-7660Kawzaqwl [Mass/volume] in Serum or PlasmaFerritin Lab Routine 16 weeks gestation of Hyperemesis of 1 Occurrences starting 09/02/2024 until 09/02/2025[facility] SystemComment on above:1 Occurrences starting 09/02/2024 until 09/02/2025 End: 85-24-1097RowwojJrskiw Lab Routine 16 weeks gestation of Hyperemesis of 1 Occurrences starting 09/02/2024 until 09/02/2025 [facility] SystemComment on above:1 Occurrences starting 09/02/2024 until 09/02/2025Gas panel - Arterial cord bloodBlood Gas Cord Arterial Lab Timed As needed (Lab) until discontinued starting 08/15/2024[facility] Work Phone: Comment on above:As needed (Lab) until discontinued starting 08/15/2024Gas panel - Venous cord bloodBlood Gas Cord Venous Lab Timed As needed (Lab) until discontinued starting 08/15/2024[facility] Work Phone: Comment on above:As needed (Lab) until discontinued starting 08/15/2024 End: 22-63-8696Wqdyqygrx [Mass/volume] in Serum or PlasmaMagnesium Lab Routine 16 weeks gestation of Hyperemesis of 1 Occurrences starting 09/02/2024 until 09/02/2025[facility] SystemComment on above:1 Occurrences starting 09/02/2024 until 09/02/2025Neisseria gonorrhoeae DNA [Presence] in Unspecified specimen by REEMA with probe detectionNeisseria gonorrhea DNA probe, direct Lab Routine STD exposure Ordered: 08/26/2024[facility] HealthcareComment on above:Ordered: 08/26/2024Non[facility]Bat[facility] Work Phone: comment on above:Daily until discontinued starting 08/15/2024s needed until discontinued starting 08/15/2024SURESWAB(R) ADVANCED VAGINITIS PLUS, TMASURESWAB(R) ADVANCED VAGINITIS PLUS, TMA Pathology and Cytology Routine STD exposure Ordered: 08/26/2024[facility] HealthcareComment on above:Ordered: 08/26/2024 End: 29-45-4552Oskipkyvtg complete W Reflex Culture panel - [facility]UN[facility] Service Area Work Phone: Comment on above:Once (Lab) for 1 Occurrences starting 07/20/2023 until 07/20/2023 End: 33-21-0023Fdhqampicw complete W Reflex Culture panel - UrineUNION COUNTY GENERAL [facility]ITAL Service Area Work Phone: comment on above:Once (Lab) for 1 Occurrences starting 08/13/2024 until 08/13/2024 End: 71-59-7838Xdeqpajgkz macro (dipstick) panel - UrinePOCT urinalysis dipstick manually resulted Point of Care Testing Routine Daily (Lab) for 1 Weeks sta rting 08/15/2024 until 08/20/2024[facility] Work Phone: Comment on above:Daily (Lab) for 1 Weeks starting 08/15/2024 until 08/20/2024 Immunizations Immunization DateImmunizationNotesCare OulftdkzUowwtuhf16-85-6533lxoqwzonu, injectable, quadrivalent, preservative freeCorey Halina DO Work Phone: [facility] HospitalNkjjqxyuqu36-01-1429kdaopnnrr virus vaccine, unspecified formulationKarina Vincent MD Work Phone: [phone]-FyxtsMercy Health St. [facility] Rwcrrt82-59-8674 hepatitis B vaccine, adult dosageMohamad Mouchli [phone]-IvsjlSelect [facility] Qlqwfx10-74-3627 hepatitis B vaccine, adult dosageMohamad Mouchli [phone]-JenosPremier Health [facility]09-10-2014 hepatitis A vaccine, pediatric/adolescent dosage, 2 dose scheduleCorey Halina DO Work Phone: [facility] HospitalEugkzoxiks99-77-2275kbxbeacsz A vaccine, unspecified formulationMohamad Mouchli [phone]-VacrmPremier Health [facility]09-10-2014 hepatitis B vaccine, pediatric or pediatric/adolescent dosageMohamad Mouchli [phone]-GavkvSelect [facility] Wudoyn59-48-4388 hepatitis A and hepatitis B vaccineGwen Danielson MD Work Phone: [facility] Work Phone: [phone]r virus vaccine, whole virusCorey Halina DO Work Phone: [facility] HospitalVcfrvgkqcw53-18-4390mfkmlyfoh, wholeMohamad Mouchli [phone]-AudpjPremier Health [facility]10-12-2013 measles, mumps and rubella virus vaccinePeter Collazo [facility] CenterComment on above:Reason for Medication: Other (see comment)14-52-3520nfjtopuzh A vaccine, pediatric/adolescent dosage, 2 dose scheduleCorey Halina DO Work Phone: [facility] HospitalAvaokoxbhp30-72-5306qvarlycol A vaccine, unspecified formulationMohamad Mouchli [phone]-PnmtePremier Health [facility]02-16-2011 varicella virus vaccineGwen Danielson MD Work Phone: [phone]-MrcfoPremier Health [facility]03-27-2009 meningococcal ACWY vaccine, unspecified formulationMohamad Mouchli [phone]-UkhuiPremier Health [facility]03-27-2009 meningococcal polysaccharide (groups A, C, Y and W-135) diphtheria toxoid conjugate vaccine (MCV4P)Uriel Halina DO Work Phone: [facility] HospitalCqtyeutaqa64-00-4653kjcjyxm toxoid, reduced diphtheria toxoid, and acellular pertussis vaccine, adsorbedMohamad Mouchli [phone]-FtgicPremier Health [facility]10-11-2007 HPV, unspecified formulationMohamad Mouchli [phone]-NmowtPremier Health [facility]10-11-2007 human papilloma virus vaccine, quadrivalentCorey Halina DO Work Phone: [facility] HospitalFotincwumr04-60-8173PGU, unspecified formulation Mohamad Mouchli [phone]-QkekvPremier Health [facility]06-11-2007 human papilloma virus vaccine, quadrivalentCorey Halina DO Work Phone: [facility] HospitalPitvkohrgc01-60-7739HJT, unspecified formulation Mohamad Mouchli [phone]-FkdgjPremier Health [facility]04-11-2007 human papilloma virus vaccine, quadrivalentCorey Halina DO Work Phone: noMercy hospital springfieldOgraalvuhd64-58-2885ccxhmhfzna, tetanus toxoids and acellular pertussis vaccine, unspecified formulationCorey Halina DO Work Phone: [facility] HospitalUgatfvqjvy99-98-7807WAgM, unspecified formulation Mohamad Mouchli [phone]-UenxoPremier Health [facility]04-05-2000 measles, mumps and rubella virus vaccineMohamad Mouchli [phone]-KpliaPremier Health [facility]04-05-2000 poliovirus vaccine, inactivatedCorey Halina DO Work Phone: noMercy hospital springfieldEzuzhyztfk74-81-7639lvxxkhlgro vaccine, unspecified formulationGwen Danielson MD Work Phone: [phone]-LhbfoSelect Medical [facility] Health Payers DatePayer CategoryPayerPolicy [id number] Health Insurance [id number] 03-44-2031AyxeCrownpoint Healthcare [id number] [id number]'S Of [facility] Member Subscriber Plan / Payer (Effective 2019-Present) Name: Indu Jorgensen Relation to Subscriber: Self Name: Indu Jorgensen Payer ID: [id number] (NAIC) Type: Not on file Address: [address] [place] [id number]'S Of [facility] Care - Other 1.2.840.681051.1.13.424.2.7.9.946099.508.76014-63-4496Bwjvjcx 1.2.840.346676.1.13.159.2.7.3.143764.96263-96-3647Obobrzf9447053 2.16840.1.688827.3.579.2.72910-33-6016Ibtozuo2712017 2.160.1.946506.3.579.2.87970-14-9082Ldzmbcy9493579 2.0.1.479956.3.579.2.20307-40-5191Egobhnd3171734 2.16840.1.930309.3.579.2.39528-24-7696Xctmnzt35350280 2.16840.1.771928.3.579.2.899954-17-3491Wvabsfj46908921 2.840.1.401109.3.579.2.21569-39-6663Alzagew65445419 2.16840.1.967524.3.579.2.33786-50-0170Jzjhiku73863206 2.16840.1.592009.3.579.2.70077-39-8660Lwxeocm75665191 2.16840.1.135135.3.579.2.17426-43-0483Dhmxkaj89593583 2.16840.1.841546.3.579.2.04474-67-0701Oqydmqr53893304 2.16.840.1.713961.3.579.2.41079-72-0866Lbympbk10939136 2.16.840.1.587218.3.579.2.04999-71-6482Mdrkmmd50973668 2.16.840.1.231046.3.579.2.78103-87-0694Srmbrhx94899952 2.16.840.1.259178.3.579.2.50208-57-6020Zpcmpor85104605 2.16.840.1.478822.3.579.2.45042-02-6654Jtfdksp87020022 2.840.1.498752.3.579.2.16374-89-4677Vitxvxi58941409 2.840.1.228576.3.579.2.67641-99-3889Pyovbyz40695486 2.840.1.111867.3.579.2.17945-30-5925Dconaxf55350579 2.840.1.918473.3.579.2.13601-27-5641Uwslhfm94224545 2.840.1.691247.3.579.2.48938-84-7330Utviolb26448613 2.840.1.635212.3.579.2.40123-04-0262Izcjgyi84381238 2.840.1.685119.3.579.2.62721-34-4253Iqfcpqe98008824 2.840.1.576412.3.579.2.50803-23-9799Uqpbkxc90361705 2.16.840.1.849250.3.579.2.97620-74-5536Rxbbrmx28315502 2.16840.1.717960.3.579.2.52095-98-8856Jbjjzfc40879640 2.840.1.976926.3.579.2.25220-10-9428Ixnnozv62092071 2.840.1.362972.3.579.2.33343-37-8516Cxjzpbz70853848 2.840.1.411194.3.579.2.87103-56-2573Xaumltq58355996 2.840.1.130392.3.579.2.70724-39-3851Gybfurf99367057 2.0.1.268641.3.579.2.41587-97-3946Ijvhnki76018690 2.840.1.850952.3.579.2.705511-74-4197Zsbrpeg47784417 2.0.1.039831.3.579.2.179214-13-7904Iflmhrc78689622 2.840.1.359223.3.579.2.74091-77-6267Tacfqgg54405375 2.0.1.388477.3.579.2.32120-05-4702Qpbfirf42068567 2.0.1.631777.3.579.2.51187-54-3017Nqusixo33392214 2.0.1.014230.3.579.2.05815-27-2163Qmqmphw492639384 2.840.1.815606.3.579.2.727964-22-6213Zdjhpai382454218 2.840.1.770616.3.579.2.191512-67-5813Jzvobmm855550253 2.840.1.315493.3.579.2.842050-57-8608Abigtsu558296604 2.840.1.582104.3.579.2.151914-96-1122Azvobcs890730220 2.840.1.891548.3.579.2.018057-87-1405Lauxcwk962012131 2.16840.1.943016.3.579.2.251586-07-2119Ycmxvnb59134481 2.0.1.803526.3.579.2.02934-53-5100Clfjtjp28991326 2.0.1.996344.3.579.2.95125-78-7765Agulzrg186553948 2..1.070972.3.579.2.174240-17-9021Phsylmp408463436 2.0.1.621203.3.579.2.684979-37-4802Vqhkcmc312318422 2.0.1.963893.3.579.2.677622-93-5279Cigkpho802676995 2..1.036829.3.579.2.453734-72-1002Iidczaf278901104 2.0.1.755423.3.579.2.810190-37-0522Dspkkty719783824 2.0.1.586878.3.579.2.127029-07-5189Ffqcnny434615011 2.0.1.743872.3.579.2.817071-61-2367Rtfdiig281501990 2.0.1.894121.3.579.2.397319-46-3654Zpcbxrq121510655 2.840.1.462550.3.579.2.388712-94-3113Blopgyc85985972 2.840.1.680458.3.579.2.70605-58-6896Urizxvs38443276 2.16.840.1.634550.3.579.2.88801-83-3472Arwjood91165015 2.16.840.1.931692.3.579.2.90174-18-0881Orvckji97623915 2.16.840.1.604945.3.579.2.58933-39-2397Knqlzse05384591 2.16.840.1.572261.3.579.2.33204-76-1134Tzytsah39323023 2.16.840.1.569043.3.579.2.72730-94-0099Xxfgqsl07387323 2.16.840.1.933871.3.579.2.75685-53-9363Onvjbmr70447007 2..840.1.441286.3.579.2.12590-21-2933Zgegmxd38715859 2.16.840.1.331003.3.579.2.69578-60-7547Tpkmyct28997785 2.16.840.1.246794.3.579.2.62713-39-9210Vlymhib07708297 2.16.840.1.744075.3.579.2.12324-06-0391Mxrhqmx37465728 2.16.840.1.993100.3.579.2.40983-58-7021Gjvsgtn63443091 2.16.840.1.163759.3.579.2.14806-12-6389Pucwjpu75723261 2.16.840.1.666174.3.579.2.60420-35-2687Krzkhhf37920203 2.16.840.1.372078.3.579.2.39294-88-5862Spkqjmh02514291 2.16.840.1.329504.3.579.2.72920-55-0258Sofkzet91097122 2.16.840.1.863068.3.579.2.06341-79-6480Qunmqax62882780 2.16.840.1.422363.3.579.2.593969-95-6057Bugxnhg70529303 2.840.1.779187.3.579.2.476059-08-8044Aokzpzr06268115 2.840.1.776803.3.579.2.525193-31-5386Xbfwjoa30835444 2.840.1.440093.3.579.2.077932-10-7759Bqazzex11134308 2.840.1.253609.3.579.2.012788-92-1143Xlkeagu74421529 2.840.1.910993.3.579.2.584917-29-3082Ridbmti62353828 2.0.1.903234.3.579.2.628846-11-8752Ggpeavf46970262 2.840.1.875009.3.579.2.189328-74-8910Tguzigf77425120 2.0.1.349898.3.579.2.927175-73-3715Dduopab1663439 2.840.1.528201.3.579.2.915189-55-3430Djdibek6091763 2.840.1.957992.3.579.2.822615-11-2585Adrbiur5452347 2.840.1.480841.3.579.2.927459-51-5120Oftrtqz7988427 2.840.1.858732.3.579.2.503954-18-0918Fvdpmps2368333 2..840.1.402859.3.579.2.254369-24-0671Ywtnenv6460222 2..840.1.859561.3.579.2.608246-74-4125Fxtcwlz5925568 2..840.1.479643.3.579.2.207647-98-3573QkmkdueKQL70152683426-14-6004Pcckmca E768152[id number] 2..840.1.925706.3.579.2.531 Social History DateTypeDetailFacilityTobacco smoking status NHISTobacco smoking consumption unknownKn[facility] Hospitaltart: 06-13-2023 End: 84-23-5634Ifdbwad of Social functionNOVT HealthcareStart: 06-13-2023 End: 33-72-3127Djtr Deprivation IndexWilson Healthtart: 25-74-6344Izmdwypd Score (1-100), lower number is lower oiky89Afjqjd-WqqfeSelect Medical Specialty [facility] Digestive HealthStart: 08-84-1910Loi Assigned At BirthNot on file [facility]: 07-10[facility]2023 End: 43-79-8454Ropmgsyd to SARS-CoV-2 (event)Not [facility] Work Phone: Start: 09-06-2022 End: 43-51-9830Aaduzvl smoking statusNever smoked tobacco (finding)[facility] HealthStart: 12-03-2023 End: 22-99-0679Sokasamdm beverage intakeLifetime non-drinker (finding)[facility] HealthcareStart: 39-20-6191Ealqdxv Commentcaffeine: noneNOMS HealthcareDo you belong to any [...] got money to buy more.Never trueNOMS HealthcareSexual OrientationLakehealth Tripoint Medical Center Start: 05-23-2018 End: 15-14-2781VpcEtyolx (finding)[facility]htart: 05-22-2024 PregnancyNOMS HealthcareStart: 08-15-2024 End: 01-15-5308Elwhbtj use and exposureSmokeless tobacco non-userSumma Health [facility] Work Phone: Start: 49-11-9965Osi assigned at birthFemalAultman HospitalStart: 14-00-1683Hbxgms identityIdentifies as female gender (finding)[facility] Work Phone: Start: 08-18-2024 End: 09-33-7782Ysvtqudqg beverage intakeEx-drinker (finding)[facility] Functional Status VgovPmrzdcnxnnRcklalHypxqjro52-85-1292Ahvuw score [AUDIT-C]0 08/15/2024 8:29 PM Isabella Salas RNUnHenry County Hospital Work Phone: [phone]) 503-310206249825-53-0634Jsqrron Health Questionnaire 2 item (PHQ-2) [Reported][facility] Work Phone: [phone]) 796-528406-289598-15-0736Egpbztxh - suicide severity rating scale screener - recent [C-SSRS][facility]06-11-2025[place] - suicide severity rating scale screener - recent [C-SSRS][facility] Work Phone: [phone]) [phone]wrfpexki [facility]04-17-2025Functional [facility]12-13-2024Total score [AUDIT-C]1 02/15/2024 9:51 AM EST Mychart, GenericNOVT Healthcare 34-27-0929Vtz often do you have a drink containing alcohol?Monthly or less 02/15/2024 9:51 AM EST Mychart, Generic Monthly or lessNOMS Vppsuxvxds35-44-4200 How many standard drinks containing alcohol do you have on a typical day?1 or 2 02/15/2024 9:51 AM EST Mychart, Generic 1 or 2NOMS Xionlvlmfa61-40-6927Ear often do you have 6 or more drinks on 1 occasion?Never 02/15/2024 9:51 AM EST Mychart, Generic NeverNOMercy hospital springfieldHfieocxdyc35-78-1900Rxhkxgupgc [facility]07-11-2024Functional [facility] HospitalUnHenry [facility] Hospital Work Phone: [facility] Work Phone: Clinical Notes 01-20-2021 to 01-12-2025 Note Date & DiaxDrhdEyeeslak01-21-2536 NoteDischarge Instructions Given Worsening The following Patient Education Materials have been given to the patient: ~~ EducationMateCinc[facility]11-10-2025 NoteProgress Note-Nurse Patient: INDU JORGENSEN Age: 29 [...] Description: -- Comments: -- Entered by: Fabricio Verifier OperatorAlysha on 08/14/2024 Other RENO Calculations for this [...] Uterine activity: normal. Non-stress test interpretation: reactive.[facility]11-06-2025 NoteDischarge Instructions Given Worsening The following Patient Education Materials have been given to the patient: ~~ EducationM[facility]iOhio [facility]11-06-2025 NoteProgress Note-Nurse Patient: INDU JORGENSEN Age: 29 [...] 79.0 % HI Lymph Auto 15.6 % [place] Auto 4.4 % Eos Auto 0.5 % Basophil Auto 0.5 % Neutro Absolute 9.4 E9/L HI Lymph Abso (more content not included)...[facility]11-03-2025 NoteDischarge Instructions Given Worsening The following Patient Education Materials have been given to the patient: ~~ EducationMaterialDunlap [facility] Hospital11-03-2025 NoteProgress Note-Nurse Patient: INDU JORGENSEN Age: [...] Description: -- Comments: -- Entered by: Fabricio Verifier OperatorAlysha on 08/14/2024 Other RENO Calculations for this : No additional RENO calculations have been recorded for this . Health Status Current medications: (Selected) Procedure Well Being Procedure Zimmerman Procedure was completed. movement: present. Heart tones: 130 bpm, reactive, baseline description was normal (110 - 160 bpm), baseline variability moderate, heart rate accelerations were present. Contractions: none. Uterine activity: normal. Non-stress test interpretation: reactive.[facility]10-30-2025 NoteDischarge Instructions Given Worsening The following Patient Education Materials have been given to the patient: ~~ [facility] [place]10-30-2025 NoteProgress Note-Nurse Patient: INDU JORGENSEN Age: 29 [...] 79.0 % HI Lymph Auto 15.6 % [place] Auto 4.4 % Eos Auto 0.5 % Basophil Auto 0.5 % Neutro Absolute 9.4 E9/L HI Lymph Absolute 1.9 E9/L [place] Absolute 0.5 E9/L Eos Absolute 0.1 E9/L [...] 10:45 EDT Consent for (more content not included)...[facility]10-29-2025 History of Present illness Narrative* PATRICIA Nava [...] Problems Diagnosis Date Noted Bipolar 1 disorder ([facility]) 11/13/2022 Anxiety 12/21/2022 Asthma ([facility]) 12/21/2022 Attention deficit hyperactivity disorder (ADHD), combined type 12/21/2022 Proteinuria 08/03/2010 PTSD (post-traumatic stress disorder) 12/21/2022 Bipolar affective disorder, current episode hypomanic ([facility]) 12/21/2022 Well woman exam with [...] medical problems Infertility counseling Low libido Miscarriage ([facility]) S/P laparoscopy Sciatica, [...] bipolar disorder Infertility counseling Low libido Miscarriage ([facility]) S/P laparoscopy Sciatica, unspecified side Seasonal allergic rhinitis, unspecified trigger Serous otitis media, unspecified chronicity, unspecified laterality URI (upper respiratory infection) [place] [facility] [place] Social History Tobacco Use Smoking [...] 03/2020 lap, D and C - at [facility] DILATION AND CURETTAGE OF UTERUS 03/07/2013 [...] ASSESSMENT & PLAN ICD-10-CM 1. Third trimester ([facility]) Z34.93 2. 33 weeks gestation of ([facility]) Z3A.33 POCT urinalysis dipstick manually [...] behalf of: PATRICIA Nava documented in this encounterProgress West [id number] NoteDischarge Instructions Given Worsening The following Patient Education Materials have been given to the patient: ~~ EducationSelect [facility] [place]10-27-2025 NoteProgress Note-Nurse Patient: INDU JORGENSEN Age: 29 [...] 79.0 % HI Lymph Auto 15.6 % [place] Auto 4.4 % Eos Auto 0.5 % Basophil Auto 0.5 % Neutro Absolute 9.4 E9/L HI Lymph Absolute 1.9 E9/L [place] Absolute 0.5 E9/L Eos Absolute 0.1 E9/L [...] has NST and BP (more content not included)...[facility]10-23-2025 NoteProgress Note-Nurse Patient: INDU JORGENSEN Age: 29 years Sex: Female : 1995 Associated Diagnoses: None Author: Neel WHITE, Amber Basic Information Gestational Age: Gestational Age (EGA) and RENO * Note: EGA calculated as of 12/25/2024 RENO: 02/12/2025 EGA*: 33 weeks Type: Authoritative Method Date: 08/14/2024 Method: Unknown (08/14/2024) Confirmation: Confirmed Description: -- Comments: -- Entered by: Fabricio Verifier OperatorAlysha on 08/14/2024 Other RENO Calculations for this [...] Follow-up: movement instruction, Labor warnings. Follow-up: 12/30/2024 .[facility]10-23-2025 NoteDischarge Instructions Given Worsening The following Patient Education Materials have been given to the patient: ~~ EducationSelect [facility] [place]10-20-2025 NoteDischarge Instructions Given Worsening The following Patient Education Materials have been given to the patient: ~~ [facility]10-20-2025 NoteProgress Note-Nurse Patient: INDU JORGENSEN Age: 29 [...] 79.0 % HI Lymph Auto 15.6 % [place] Auto 4.4 % Eos Auto 0.5 % Basophil Auto 0.5 % Neutro Absolute 9.4 E9/L HI Lymph Absolute 1.9 E9/L [place] Absolute 0.5 E9/L Eos Absolute 0.1 E9/L [...] Physician Order nst (more content not included)...[facility]10-16-2025 NoteDischarge Instructions Given Worsening The following Patient Education Materials have been given to the patient: ~~ EducationMaterialBoaz [facility]10-16-2025 NoteProgress Note-Nurse Patient: INDU JORGENSEN Age: [...] Description: -- Comments: -- Entered by: Fabricio Verifier OperatorAlysha on 08/14/2024 Other RENO Calculations for this : No additional RENO calculations have been recorded for this . Health Status Current medications: (Selected) Documented Medications Documented Iron Chews: 15 mg, Oral, Daily, Refills(s) [address] Tab: 20 mg = 1 tab(s), Oral, Refills(s) 0 19 ([place]): See Instructions, Refill(s) 0, Oral SEROquel 50 [...] that nst was reactive and BPP was 8/.[facility]10-14-2025 History of Present illness Narrative* Shari Gomez, ARCHITECT [employer] - 12/16/2024 9:30 AM EDT Reason for [...] medical problems Infertility counseling Low libido Miscarriage ([facility]) S/P laparoscopy Sciatica, [...] nursing note reviewed. Exam conducted with a etcher printed circuit boards present. Vitals: Estimated body mass index is 22.08 kg/m as calculated from the following: Height as of 04/14/24: 5' 6 . Weight as of this encounter: 136 lb 12.8 oz. BP: 108/52 No LMP recorded. Patient is . ASSESSMENT & PLAN ICD-10-CM 1. Third trimester ([facility]) Z34.93 2. 31 weeks gestation of ([facility]) Z3A.31 POCT urinalysis dipstick manually [...] bipolar disorder Infertility counseling Low libido Miscarriage ([facility]) S/P laparoscopy Sciatica, unspecified side Seasonal allergic rhinitis, unspecified trigger Serous otitis media, unspecified chronicity, unspecified laterality URI (upper respiratory infection) 03[place] [facility] [place]3] Family History Problem Relation [...] 03/2020 lap, D and C - at [facility] DILATION AND CURETTAGE OF UTERUS 03/07/2013 ; 08/13/2015 DILATION AND CURETTAGE OF UTERUS 10/27/2022 EGD 11/2023 HYSTEROSCOPY 06/12/2016 Laproscopy/hysterscopy documented in this encounterProgress West HospitalAibjtktlur06-70-2411 Miscellaneous Notes* Telephone Encounter - Carolann Nolen RN - 12/15/2024 9:32 AM EDT Left VM at office requesting a call to Dr. Ortiz to briefly discuss the patient. documented in this encounterWyandot [facility] Hospital10-13-2025 Telephone encounter Note* Telephone Encounter - Carolann Nolen RN - 12/15/2024 9:32 AM EDT Left VM at office requesting a call to Dr. Ortiz to briefly discuss the patient. [facility]10-13-2025 NoteDischarge Instructions Given Worsening The following Patient Education Materials have been given to the patient: ~~ EducationSelect [facility] [place]10-13-2025 NoteProgress Note-Nurse Patient: INDU JORGENSEN Age: 29 years Sex: Female : 1995 Associated Diagnoses: None Author: Neel WHITE, Amber Basic Information Gestational Age: Gestational Age (EGA) and RENO * Note: EGA calculated as of 12/15/2024 RENO: 02/12/2025 EGA*: 31 weeks 4 days Type: Authoritative Method Date: 08/14/2024 Method: Unknown (08/14/2024) Confirmation: Confirmed Description: -- Comments: -- Entered by: Fabricio Verifier OperatorAlysha on 08/14/2024 Other RENO Calculations for this [...] to return on for another NST and BPP.[facility]10-09-2025 NoteDischarge Instructions Given Worsening The following Patient Education Materials have been given to the patient: ~~ EducationM[facility]iOhio [facility] University [facility]10-09-2025 NoteProgress Note-Nurse Patient: INDU JORGENSEN Age: 29 [...] Pending Diagnostic Test Results None Pharmacy Information [facility] 12/04/2024 14:34 EDT Physician Order nst 12/04/2024 [...] via phone Information Provided to Clinician updated account solutions analyst of reactive nst. 12/01/2024 8:40 EDT Monitoring [...] EDT Consent for Tr (more content not included)...[facility]10-07-2025 History of Present illness Narrative* Mario Alberto Ortiz MD - 12/09/2024 11:30 AM EDT Video Visit via Real-time Synchronous Audiovisual Provider Location: [facility]- MEDICINE AT [address] [address] Patient Location: Patient's home Patient Location Kiln Charger: None Video Visit Consent Statement: I discussed [...] that there are some limitations compared to ryse-ya-xkac evaluations. We elected to proceed. REASON FOR OFFICE VISIT: multiple medical issues HISTORY OF PRESENT ILLNESS: Indu Jorgensen is a pleasant 29 y.o. [id number] at 30w5d due on EstimatedDate of Delivery: [...] MORNING, Disp: 90 tablet, Rfl: 0 VIT 81-VONG-HACMJ-DHA ORAL, Take by mouth., Disp: , Rfl: [...] psychiatric evaluation. 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 She gave me permission to discuss [...] you for allowing me to participate in [facility]. If there are any questions, please do not hesitate to call me. Sincerely, MARIO ALBERTO ORTIZ MD documented in this encounterWyandot Memorial Hospital10-06-2025 NoteDischarge Instructions Given Worsening The following Patient Education Materials have been given to the patient: ~~ EducationSelect [facility] [place]10-06-2025 NoteProgress Note-Nurse Patient: INDU JORGENSEN Age: 29 [...] Daily, # 30 tab(s), Refills(s) 0, Pharmacy: [facility] #[id number], 167, cm, 06/19/24 10:50:00 EDT, Height/Length Dosing, 48.9, kg, 06/19/24 10:50:00 EDT, Weight Dosing Documented Medications Documented Iron Chews: 15 mg, Oral, Daily, Refills(s) 0 19 ([place]): See Instructions, Refill(s) 0, Oral SEROquel 50 [...] and Plan Patient Education & Follow-up: movement instruction.[facility]10-02-2025 NoteDischarge Instructions Given Worsening The following Patient Education Materials have been given to the patient: ~~ EducationMaterialDunlap [facility] Hospital10-02-2025 NoteProgress Note-Nurse Patient: INDU JORGENSEN Age: 29 [...] Description: -- Comments: -- Entered by: Fabricio Verifier OperatorAlysha on 08/14/2024 Other RENO Calculations for this [...] Education & Follow-up: movement instruction. Follow-up: 12/08/2024 .[facility]09-30-2025 History of Present illness Narrative* Dolores Caldwell [...] bipolar disorder Infertility counseling Low libido Miscarriage ([facility]) S/P laparoscopy Sciatica, unspecified side Seasonal allergic rhinitis, unspecified trigger Serous otitis media, unspecified chronicity, unspecified laterality URI (upper respiratory infection) [place] [facility] [place] Social History Tobacco Use Smoking [...] 03/2020 lap, D and C - at [facility] DILATION AND CURETTAGE OF UTERUS 03/07/2013 [...] nursing note reviewed. Exam conducted with a etcher printed circuit boards present. Vitals: Estimated body mass index is 20.98 kg/m as calculated from the following: Height as of 04/14/24: 5' 6 . Weight as of this encounter: 130 lb. BP: 120/62 No LMP recorded. Patient is . ASSESSMENT & PLAN ICD-10-CM 1. Third trimester ([facility]) Z34.93 POCT urinalysis dipstick manually resulted 2. 29 weeks gestation of ([facility]) Z3A.29 3. Bipolar 1 disorder ([facility]) F31.9 4. PTSD (post-traumatic stress disorder) F43.10 [...] of: Dolores Caldwell NP documented in this encounterJoseph Ville [id number] NoteDischarge Instructions Given Worsening The following Patient Education Materials have been given to the patient: ~~ EducationMaterialDunlap [facility] Hospital09-29-2025 NoteProgress Note-Nurse Patient: INDU JORGENSEN Age: [...] Description: -- Comments: -- Entered by: Fabricio Verifier OperatorAlysha on 08/14/2024 Other RENO Calculations for this [...] Education & Follow-up: movement instruction. Follow-up: 12/02/2024 .[facility]09-26-2025 NoteDischarge Instructions Given Worsening The following Patient Education Materials have been given to the patient: ~~ EducationMateriOhio [facility] University [facility]09-25-2025 NoteProgress Note-Nurse Patient: INDU JORGENSEN Age: 29 [...] Description: -- Comments: -- Entered by: Fabricio Verifier OperatorAlysha on 08/14/2024 Other RENO Calculations for this [...] Education & Follow-up: movement instruction. Follow-up: 12/01/2024 .[facility]09-22-2025 NoteDischarge Instructions Given Worsening The following Patient Education Materials have been given to the patient: ~~ EducationSelect [facility] [place]09-22-2025 NoteProgress Note-Nurse Patient: INDU JORGENSEN Age: 29 [...] QIDACHS, # 400 mL, Refills(s) 0, Pharmacy: [facility] #[id number], 167, cm, 06/19/24 10:50:00 EDT, Height/Length Dosing, 48.9, kg, 06/19/24 10:50:00 EDT, Weight Dosing MiraLax 3350 Oral Pwdr for Recon 249 gram: 17 gram, Oral, Daily, # 527 gram, Refills(s) 0, Pharmacy: [facility] #[id number], 168, cm, 09/15/19 7:03:00 EDT, Height/Length Measured, 52, kg, 09/15/19 7:03:00 EDT, Weight Measured Protonix 40 mg Tab-DR: 40 mg = 1 tab(s), Oral, Daily, # 30 tab(s), Refills(s) 0, Pharmacy: [facility] #[id number], 167, cm, 06/19/24 10:50:00 EDT, Height/Length Dosing, 48.9, kg, 06/19/24 10:50:00 EDT, Weight Dosing Reglan 5 mg Tab: 5 mg = 1 tab(s), Oral, QID, # 120 tab(s), Refills(s) 0, Pharmacy: [facility] #[id number], 167, cm, 06/19/24 10:50:00 EDT, Height/Length Dosing, 48.9, kg, 06/19/24 10:50:00 EDT, Weight Dosing Zofran ODT 4 mg Tab-Dis: 4 mg = 1 tab(s), Oral, q6hr, # 60 tab(s), Refills(s) 0, Pharmacy: [id number], 167, cm, 06/19/24 10:50:00 EDT, Height/Length Dosing, 48.9, kg, 06/19/24 10:50:00 EDT, Weight Dosing famotidine 20 mg Tab: 20 mg = 1 tab(s), Oral, BID, # 60 tab(s), Refills(s) 0, Pharmacy: [id number], 167, cm, 06/19/24 10:50:00 EDT, Height/Length Dosing, 48.9, kg, 06/19/24 10:50:00 EDT, Weight Dosing naloxone 4 mg/0.1 mL nasal spray: 4 mg, Nasal, As Directed, for suspected overdose symptoms, # 1 kit(s), Refills(s) 0, Pharmacy: [facility], 167, cm, 06/19/24 10:50:00 EDT, Height/Length Dosing, 48.9, kg, 06/19/24 10:50:00 EDT, Weight Dosing oxyCODONE 5 mg Cap: 5 mg = 1 cap(s), Oral, q12hr, PRN for pain, # 6 cap(s), Refills(s) 0, Pharmacy:[facility], 167, cm, 06/19/24 10:50:00 EDT, Height/Length Dosing, 48.9, kg, 06/19/24 10:50:00 EDT, Weight Dosing Documented Medications Documented Fish Oil: 500 mg, Oral, Daily, Refill(s) 0 19 ([place]): See Instructions, Refill(s) 0, Oral SEROquel 50 [...] Education & Follow-up: movement instruction. Follow-up: 11/27/2024 .[facility]09-18-2025 NoteProgress Note-Nurse Patient: INDU JORGENSEN Age: 29 [...] and Plan Patient Education & Follow-up: movement instruction.[facility]09-16-2025 History of Present illness Narrative* Shari Gomez [...] Problems Diagnosis Date Noted Bipolar 1 disorder ([facility]) 11/13/2022 Anxiety 12/21/2022 Asthma ([facility]) 12/21/2022 Attention deficit hyperactivity disorder (ADHD), combined type 12/21/2022 Proteinuria 08/03/2010 PTSD (post-traumatic stress disorder) 12/21/2022 Bipolar affective disorder, current episode hypomanic ([facility]) 12/21/2022 Well woman exam with [...] medical problems Infertility counseling Low libido Miscarriage ([facility]) S/P laparoscopy Sciatica, [...] bipolar disorder Infertility counseling Low libido Miscarriage ([facility]) S/P laparoscopy Sciatica, unspecified side Seasonal allergic rhinitis, unspecified trigger Serous otitis media, unspecified chronicity, unspecified laterality URI (upper respiratory infection) [place] [facility] [place] Social History Tobacco Use Smoking [...] 03/2020 lap, D and C - at [facility] DILATION AND CURETTAGE OF UTERUS 03/07/2013 [...] nursing note reviewed. Exam conducted with a etcher printed circuit boards present. Vitals: Estimated body mass index is 21.43 kg/m as calculated from the following: Height as of 04/14/24: 5' 6 . Weight as of this encounter: 132 lb 12.8 oz. BP: 120/64 No LMP recorded. Patient is . ASSESSMENT & PLAN ICD-10-CM 1. 27 weeks gestation of ([facility]) Z3A.27 POCT urinalysis dipstick manually resulted 2. Second trimester ([facility]) Z34.92 POCT urinalysis dipstick manually resulted 3. Hyperemesis of ([facility]) O21.0 4. resulting from in vitro fertilization in second trimester ([facility]) O09.812 US biophysical profile w non stress test 5. Breech presentation, single or unspecified fetus ([facility]) O32.1XX0 Return OB: [...] ofmovement- pt to start NST/BPP now at [facility] Orders Placed This Encounter Procedures US biophysical profile w non stress test POCT urinalysis dipstick manually resulted Follow Up: Patient is to return to office in 2 week for routine OB appointment. Documented by Shari Gomez LPN on behalf of: Uriel Meade DO documented in this encounterProgress West [id number] History of Present illness Narrative* Mario Alberto Ortiz MD - 11/07/2024 8:30 AM EDT Video Visit via Real-time Synchronous Audiovisual Provider Location: [facility]- MEDICINE AT [address] [phone] Patient Location: Patient's home Patient Location Kiln Charger: None Video Visit Consent Statement: I discussed [...] that there are some limitations compared to aceg-pb-mcov evaluations. We elected to proceed. REASON FOR OFFICE VISIT: multiple medical issues HISTORY OF PRESENT ILLNESS: Indu Jorgensen is a pleasant 29 y.o. [id number] at 26w1d due on EstimatedDate of Delivery: [...] 90days., Disp: 90 tablet, Rfl: 0 VIT 46-ACVJ-FQGFD-DHA ORAL, Take by mouth., Disp: , Rfl: [...] MARIO ALBERTO ORTIZ MD documented in this encounterWyandot Memorial Hospital08-19-2025 History of Present illness Narrative* Shari Gomez, ARCHITECT NAVAL - 10/21/2024 8:50 AM EDT Reason for [...] medical problems Infertility counseling Low libido Miscarriage ([facility]) S/P laparoscopy Sciatica, unspecified side Seasonal allergic [...] bipolar disorder Infertility counseling Low libido Miscarriage ([facility]) S/P laparoscopy Sciatica, unspecified side Seasonal allergic rhinitis, unspecified trigger Serous otitis media, unspecified chronicity, unspecified laterality URI (upper respiratory infection) 03[place]01[place] [facility] [place] Social History Tobacco Use Smoking [...] 03/2020 lap, D and C - at [facility] DILATION AND CURETTAGE OF UTERUS 03/07/2013 [...] nursing note reviewed. Exam conducted with a etcher printed circuit boards present. Vitals: Estimated body mass index is 20.47 kg/m as calculated from the following: Height as of 04/14/24: 5' 6 . Weight as of this encounter: 126 lb 12.8 oz. BP: 110/68 No LMP recorded. Patient is . ASSESSMENT & PLAN ICD-10-CM 1. 23 weeks gestation of ([facility]) Z3A.23 POCT urinalysis dipstick manually resulted 2. Second trimester ([facility]) Z34.92 POCT urinalysis dipstick manually resulted 3. Hyperemesis of ([facility]) O21.0 4. resulting from in vitro fertilization in second trimester ([facility]) O09.812 5. Diabetes [...] discussed/given. 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 Orders Placed This Encounter Procedures CBC Glucose tolerance, 1 hour POCT urinalysis dipstick manually resulted Follow Up: Patient is to return to office in 4 week for routine OB appointment. Documented by Shari Gomez LPN on behalf of: Uriel Meade DO documented in this encounterProgress West [id number] History of Present illness Narrative* Krupa Jones MD - 10/02/2024 2:30 PM EDT REASON FOR OFFICE VISIT: multiple medical issues HISTORY OF PRESENT ILLNESS: Indu Jorgensen is a pleasant 29 y.o. [id number] at 21w0d due on EstimatedDate of Delivery: [...] 90days., Disp: 90 tablet, Rfl: 0 VIT 92-BCOI-LMRUH-DHA ORAL, Take by mouth., Disp: , Rfl: [...] allowing me to participate in Indu Jorgensen [facility]. If there are any questions, please do not hesitate to call me. Sincerely, KRUPA JONES MD documented in this encounterWyandot Memorial Hospital07-31-2025 Miscellaneous Notes* Telephone Encounter - [facility] [...] need with justthe abdomen. documented in this encounterWyandot Memorial Hospital07-31-2025 Telephone encounter Note* Telephone Encounter - [...] the imaging they need with justthe abdomen. [facility] [employer] [id number] History of Present illness Narrative* Akua Streeter LPN - 09/25/2024 8:40 AM EDT Reason for Appointment: Patient ID: nIdu Jorgensen is a 29 y.o. female who [...] medical problems Infertility counseling Low libido Miscarriage ([facility]) S/P laparoscopy Sciatica, unspecified side [...] bipolar disorder Infertility counseling Low libido Miscarriage ([facility]) S/P laparoscopy Sciatica, unspecified side Seasonal allergic rhinitis, unspecified trigger Serous otitis media, unspecified chronicity, unspecified laterality URI (upper respiratory infection) 03/01/[place] [facility] [place] Social History Tobacco Use Smoking [...] 03/2020 lap, D and C - at [facility] DILATION AND CURETTAGE OF UTERUS 03/07/2013 [...] nursing note reviewed. Exam conducted with a etcher printed circuit boards present. Vitals: Estimated body mass index is 19.69 kg/m as calculated from the following: Height as of 04/14/24: 5' 6 . Weight as of this encounter: 122 lb. BP: 114/66 No LMP recorded. Patient is . ASSESSMENT & PLAN ICD-10-CM 1. Second trimester ([facility]) Z34.92 POCT urinalysis dipstick manually resulted 2. 20 weeks gestation of ([facility]) Z3A.20 POCT urinalysis [...] eating disorder diagnosis. 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 Patient to return to clinic in 4 weeks. Documented by Akua Streeter LPN on behalf of: Uriel Meade DO documented in this encounterProgress West [id number] Miscellaneous Notes* Telephone Encounter - Lexi Maya RN - 09/17/2024 1:15 PM EDT Notified patient that Dr Ortiz ordered an MRI of the abdomen and chest to rule out a hernia. Provided number to schedule. Pattern Grader Supervisor also encouraged patient to make GI appointment. Patient verbalized understanding and stated she will schedule it. documented in this encounterWyandot [facility]07-[facility] Telephone encounter Note* Telephone Encounter - Lexi Maya RN - 09/17/2024 1:15 PM EDT Notified patient that Dr Ortiz ordered an MRI of the abdomen and chest to rule out a hernia. Provided number to schedule. Pattern Grader Supervisor also encouraged patient to make GI appointment. Patient verbalized understanding and stated she will schedule it. [facility]07[facility] History of Present illness Narrative* Aisha Costa MD - 09/15/2024 2:16 PM EDT CGM Blood glucose at goal. There was no of hypoglycemia. No need for further monitoring. Recommend timed glucose challenge testing at 24-28 weeks gestation. Aisha Costa MD Maternal- Medicine [facility] [address] [place] [address] documented in this encounterWyandot [facility] Hospital07-09-2025 History of Present illness Narrative* Maria [...] by mouth in the morning. blood-glucose sensor (YouxiguSTYLE PABLITO 3 PLUS SENSOR) device Wear for [...] for 90 days. 90 tablet 0 VIT 05-ZNGY-OURQU-DHA ORAL Take by mouth. 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 Yes Current Exercise program light duty Who prepares the meal Who purchase food at your home? pt Equipment use for cooking/food storage has all Food Assistance(Ex.WIC, Food [place]) declined Dining out Yes 1 time per [...] by patient's food recall. Estimated energy needs: 6153-1053 kcal (MSJ using 1.2 AF and additional [...] protein powders and provided with handout on [employer] nutrition shakes to help personalize and cut down on costs. Briefly reviewed CGM download, which did show some episodes of low blood sugars and she confirmed feeling symptoms of lows as well. We reviewed treatment of low blood sugars. Will send all handouts through [employer] and encouraged to reach out with further questions. Given her history, she may benefit from further evaluation from a nutrition professional who specializes in the intersection of mental health and food. Face to face time 60 minutes. documented in this encounterWyandot [facility] Hospital07-01-2025 History of Present illness Narrative* Lexi [...] risk Have you been seen here at [facility] in a previous ? No. Saw [facility] this at [facility] during an emergency room visit Recent ER visits or hospitalizations? Patient went to [facility] a few weeks ago for chestpain and emesis occurences. Bring blood sugar log or meter with you today? (Please bring them with you for every visit at [facility]) NA Flu vaccine (Jan-May)? NA Any concerns [...] hours as needed., Disp: , Rfl: VIT 37-LCCB-NVTBZ-DHA ORAL, Take by mouth., Disp: , Rfl: [...] Resource Strain: Low Risk (08/15/2024) Received from [facility] Overall Financial Resource Strain (CARDIA) Difficulty of Paying Living Expenses: Not hard at all Food Insecurity: No Food Insecurity (09/02/2024) Hunger Screening Food Insecurity - Worry: Never True Food Insecurity - Inability: Never True Transportation Needs: No Transportation Needs (08/15/2024) Received from [facility] PRAPARE - Transportation Lack of Transportation (Medical): No Lack of Transportation (Non-Medical): No Physical Activity: Insufficiently Active (07/06/2024) Received from [facility] Exercise Vital Sign Days of Exercise per Week: 1 day Minutes of Exercise per Session: 30 min Stress: Stress Concern Present (02/15/2024) [facility] [place] of Occupational Health - Occupational Stress Questionnaire Feeling of Stress : Very much Social Connections: Moderately Isolated (02/15/2024) [facility] from [facility] Social Connection and Isolation Panel [NHANES] Frequency of Communication with Friends and Family: More than three times a week Frequency of Social Gatherings with Friends and Family: Never Attends Jehovah'S Witness Services: Never Active Member of Clubs or Organizations: No Attends Club or Organization Meetings: Never Marital Status: Interpersonal Safety: Not At Risk (08/15/2024) Received from [facility] Humiliation, Afraid, Rape, and Kick questionnaire Fear of Current or Ex-Partner: No Emotionally Abused: No Physically Abused: No Sexually Abused: No Housing Instability: Low Risk (07/07/2024) [facility] Housing Stability Vital Sign Unable to [...] 90 tablet; Refill: 0 - [facility] [place], [place]; Future - Ultrasound abdomen complete; Future [...] 90 tablet; Refill: 0 - [facility] [place], [place]; Future - Ultrasound abdomen complete; Future [...] the patient. 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 If there is a [...] 8. Bipolar disease 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 trimester ([facility]) 9. Anxiety during I reviewed with the [...] Alberto Ortiz MD, FACOG (she/hers) Maternal- Medicine [facility] [address] [place] [address] This document was created with IM5 technology. Though I make every effort to review the dictation as it is transcribed, on occasion the spoken word can be misinterpreted by the technology leading to inappropriate words, phrases, or sentences. This note is addressed to the requesting provider as a consultation for clinical guidance. Specificmedical abbreviations are occasionally used and those are generally approved by the [place]?Board of?Obstetrics and?Gynecology?as well as?Alex s abbreviations. The above plan of care was based solely on the diagnoses for which a consultation was requested. ?More frequent testing may be indicated based on her other medical/obstetrical conditions. The management of other or medical conditions is beyond the scope of requested consultation and will c ontinue to be followed by the primary cotton puller or primary care provider. Note to patient: [...] CGM and questions answered. documented in this encounterHolden Memorial HospitalMyWobile06-24-2025 History of Present illness Narrative* Shari Gomez [...] Problems Diagnosis Date Noted Bipolar 1 disorder ([facility]) 11/13/2022 Anxiety 12/21/2022 Asthma (HCC) 12/21/2022 Attention [...] medical problems Infertility counseling Low libido Miscarriage ([facility]) S/P laparoscopy Sciatica, unspecified side Seasonal allergic [...] bipolar disorder Infertility counseling Low libido Miscarriage ([facility]) S/P laparoscopy Sciatica, unspecified side Seasonal allergic rhinitis, unspecified trigger Serous otitis media, unspecified chronicity, unspecified laterality URI (upper respiratory infection) 03[place]01[place] [facility] [place] Social History Tobacco Use Smoking [...] 03/2020 lap, D and C - at [facility] DILATION AND CURETTAGE OF UTERUS 03/07/2013 [...] nursing note reviewed. Exam conducted with a etcher printed circuit boards present. Vitals: Estimated body mass index is [...] gonorrhea DNA probe, direct 3. Second trimester ([facility]) Z34.92 Alpha fetoprotein, maternal Alpha fetoprotein, maternal 4. 15 weeks gestation of ([facility]) Z3A.15 POCT urinalysis dipstick manually resulted 5. Screening, , for anatomic survey ([facility]) Z36.89 CANCELED: US OB 14+ weeks anatomy scan CANCELED: US OB 14+ weeks anatomy scan Return OB/Annual Exam: Patient presents today for a annual exam/routine obstetrics appointment. Patient is currently 11s5mcobmmwfl. Patient states she is doing well but [...] of: Uriel Meade DO documented in this encounterProgress West [id number] NoteDischarge Summary SHORT STAY SUMMARY: 08/14/2024 The patient is a 28-year-old 3, para 1 white female who presented to the Emergency Room at 14 weeks' gestation, a patient of Dr. Meade. She had been having nausea and vomiting. She had been seen at [place] [facility] and then at [facility] and in followup with her regular DIRECTOR OF PHYSICAL THERAPY Dr. Meade. She presents with continued nausea [...] problems. Saundra Verdugo M.D. ca Dictated: 08/16/2024 [id number] Transcribed: 08/17/2024Dunlap Memorial HospitalComment on above:Result Comment: Electronically Signed By: Lucina ELLISON, Saundra Peace\.br\Date and Time Signed: 08/20/24 07:19 [id number] Plan of care note* Care Plan - Isabella Harris RN - 08/15/2024 9:46 PM EDT Problem: Antepartum Goal: Maintain as long as maternal and/or condition is stable Outcome: Progressing Goal: Avoid/minimize constipation Outcome: Progressing Goal: No decrease in circulation/VTE Outcome: Progressing Goal: FHR remains reassuring Outcome: Progressing Goal: Minimize anxiety/maximize coping Outcome: Progressing [facility] Work Phone: [phone]) 234-862006-13-2025 Miscellaneous Notes* Care Plan - Isabella Harris [...] 08/15/2024 6:09 PM EDT documented in this encounterSumma [facility] Work Phone: 1(687) 752-439706-13-2025 Hospital Discharge instructions* Discharge Instr - AVS [...] or unable to cope documented in this encounterUnHenry County Hospital Work Phone: 1([phone]) 127-813106-13-2025 Nurse Note* Brittany Diez RN - 08/15/2024 7:31 PM EDT Patient wants to constantly be in the shower.[facility]ing [facility] Work Phone: 1(461) 169-738406-13-2025 Nurse Note* Brittany Diez RN - 08/15/2024 7:31 PM EDT Patient wants to constantly be in the shower.Requesting her [facility] documented in this encounterUnHenry County Hospital Work Phone: [phone]) 285-102806-13-2025 Plan of care note* Care Plan - [...] might have kept half of it down. [facility] Work Phone: [phone]) 778-564506-13-2025 events manager Note* Significant Event - Krupa Hathaway [...] Engel MD at 08/15/2024 6:09 PM EDT [facility] Work Phone: [phone]) 905-213006-13-2025 Consult note* Shanel Hollins MD - 08/15/2024 8:06 AM EDT 08/15/2024 Indu Jameel [facility] CONSULT NOTE HPI: Indu Jorgensen is a [...] Assessment & Plan 14 weeks gestation of ([facility]) Patient was seen and evaluated with Dr. Jaime Hollins MD Maternal Medicine [1] Patient Active Problem List Diagnosis 14 weeks gestation of ([facility]) [2] Past Surgical [...] Sandoval MD Maternal Medicine Director of Intervention [facility] Work Phone: [phone]) 271-308006-13-2025 Consult note* Shanel Hollins MD - 08/15/2024 8:06 AM EDT 08/15/2024 Indu Jorgensen [facility] CONSULT NOTE HPI: Indu Jorgensen is a [...] Assessment & Plan 14 weeks gestation of ([facility]) Patient was seen and evaluated with Dr. Jaime Hollins MD Maternal Medicine [1] Patient Active Problem List Diagnosis 14 weeks gestation of ([facility]) [2] Past Surgical [...] Medicine Director of Intervention documented in this [facility] Work Phone: [phone]) 172-696006-13-2025 History and physical note* Rose Claire MD [...] Insecurity: No Food Insecurity (07/07/2024) Received from [facility] Hunger Vital Sign Worried About Running Out of Food in the Last Year: Never true Ran Out of Food in the Last Year: Never true Transportation Needs: No Transportation Needs (07/07/2024) Received from [facility] PRAPARE - Transportation Lack of Transportation (Medical): No Lack of Transportation (Non-Medical): No Physical Activity: Insufficiently Active (07/06/2024) Received from [facility] Exercise Vital Sign Days of [...] Sandoval MD Maternal Medicine Director of Intervention [facility] Work Phone: [phone]) 211-614606-13-2025 History and physical note* Rose Claire MD [...] No Food Insecurity (07/07/2024) Received from [facility] Hunger Vital Sign Worried About Running Out of Food in the Last Year: Never true Ran Out of Food in the Last Year: Never true Transportation Needs: No Transportation Needs (07/07/2024) Received from [facility] PRAPARE - Transportation Lack of Transportation (Medical): No Lack of Transportation (Non-Medical): No Physical Activity: Insufficiently Active (07/06/2024) Received from [facility] Exercise Vital Sign Days of [...] Medicine Director of Intervention documented in this encounterUnHenry County Hospital Work Phone: [phone]) 234-776706-12-2025 Emergency department Triage note* Wilian Loredo RN [...] states that she is 14 weeks . [facility] Work Phone: [phone]) 985-418006-12-2025 Emergency department Note* Wilian Loredo RN - [...] is 14 weeks . documented in this encounterUnHenry County Hospital Work Phone: [phone]) 775-330406-12-2025 Hospital Discharge instructions Patient Education 08/14/2024 19:02:28 [...] medicines. ?Antacids. ?Antidepressants. ?Antihistamines. ?Medicines for migraines. ?Frjt-cvo-zsbuybn pain medicine. ?Over-the counter diet supplements. Severe nausea and vomiting may require you to stay at the hospital. You may need IV fluids to prevent or treat dehydration. Follow these instructions at home: During an episode Take aucx-gjs-eomdmpb and prescription medicines only as told by [...] avoid spicy or fatty foods, such as lao fries and pizza. General instructions Monitor your [...] provider. Document Revised: 09/28/2021 Document Reviewed: 09/28/2021 reQall Patient Education 2023 [employer] Follow Up Care 08/14/2024 01:38:58 With:Uriel MEADE Address: [address] , [place] [id number] Business (1) When:08/26/2024 Comments:Call for any problems. [facility] [id number] NoteDischarge Instructions Given Worsening The following Patient Education Materials have been given to the patient: ~~ [facility]25 NoteDischarge Instructions Given Worsening The following Patient Education Materials have been given to the patient: ~~ [facility]06-12-2025 Evaluation + Plan note Extracted from:Title:ED NoteAuthor:Bk [...] care of the patient was transitioned to ia upon shift change to follow-up with reevaluation [...] Verdugo who admitted patient to the OB. [facility] 06-12-2025 NoteProgress Note-Nurse Patient: INDU ST Age: [...] with Dr Meade. States chest pain is constant.[facility]05-28-2025 History of Present illness Narrative* Shari Gomez [...] Problems Diagnosis Date Noted Bipolar 1 disorder ([facility]) 11/13/2022 Anxiety 12/21/2022 Asthma 12/21/2022 Attention deficit [...] [facility] [place] Amenorrhea Bilateral sacroiliitis Cervical cancer ([facility] [place] Amenorrhea Bilateral sacroiliitis Cervical cancer ([facility]) Chronic fatigue Chronic rhinitis Chronic vaginitis Depression with anxiety Depression/Anxiety Endometriosis Gynecological disorder History of medical problems Question of bipolar disorder Infertility counseling Low libido Miscarriage S/P laparoscopy Sciatica, unspecified side Seasonal allergic rhinitis, unspecified trigger Serous otitis media, unspecified chronicity, unspecified laterality URI (upper respiratory infection) [place] [facility] [place] Social History Tobacco Use Smoking [...] 03/2020 lap, D and C - at [facility] DILATION AND CURETTAGE OF UTERUS 03/07/2013 [...] nursing note reviewed. Exam conducted with a etcher printed circuit boards present. Vitals: Estimated body mass index is [...] undercooked meat, and stay away from [facility]. Patient has been consulted regarding any further do's and don'tsof . Patient voiced understanding and all questions and concerns were answered. Pt to be re ferred to [facility] for high risk- IVF, hyperemesis, mental health disorders. Pt to start zofran pump, losing appetite and or constant vomiting. Pt sees psychiatrist tomorrow, PCP wanted to prescribe clonapin, category D. Pt to see [facility] for medication management, pt advised to come off of seroquel. Rx forbuspar faxed to pharmacy Orders Placed This Encounter Procedures POCT urinalysis dipstick manually resulted Follow Up: Patient is to return in 4 weeks for routine OB appointment. Documented by Shari Gomez LPN on behalf of: Uriel Meade DO documented in this encounterProgress West [id number] History of Present illness Narrative* Clementina López [...] Problems Diagnosis Date Noted Bipolar 1 disorder ([facility]) 11/13/2022 Anxiety 12/21/2022 Asthma 12/21/2022 Attention deficit [...] bleeding (AUB) ADHD (attention deficit hyperactivity disorder) ([facility]) Amenorrhea Bilateral sacroiliitis Cervical cancer ([facility]) Chronic fatigue Chronic rhinitis Chronic [...] 03/2020 lap, D and C - at [facility] DILATION AND CURETTAGE OF UTERUS 03/07/2013 [...] undercooked meat, and stay away from [facility]. Patient has also been advised to [...] by: Clementina López LPN documented in this encounterProgress West [id number] NoteDischarge Summary Admission and Discharge Information Admitting [...] Fish Oil, 500 mg, Oral, Daily 19 ([place]), See Instructions Follow-up With When Contact Information Uriel MEADE Within [address] to [address] [place] [address]- Business (1) Additional Instructions: Call for followup appointment Carolyne Collazo Within 7 to [address] [place] [address]- Business (1) Additional Instructions: Call for followup appointment Patient Education Hyperemesis Gravidarum Esophagitis Cannabinoid Hyperemesis Syndrome Attestation I spent 40 minutes on care including chart review, order, documentation, exam, discussion of care plan with OB, patient, and her .[facility] HospitalComment on above:Result Comment: Electronically Signed By: Josh Gilbert III, DO\Date and Time Signed: 07/06/24 20:23 [id number] History of Present illness Narrative* Shari Gomez, [employer] - 06/24/2024 3:20 PM EDT Reason for Appointment: Patient ID: Indu Jorgensen is a 28 y.o. female who presents for ER Follow-up (Pt present today for an ER follow up. Pt was seen at [facility] on 06/19/2024 for hyperemesis w/.) Patient presents [...] Problems Diagnosis Date Noted Bipolar 1 disorder ([facility]) 11/13/2022 Anxiety 12/21/2022 Asthma 12/21/2022 Attention deficit hyperactivity disorder (ADHD), combined type ([facility]) 12/21/2022 Proteinuria 08/03/2010 PTSD (post-traumatic stress disorder) ([facility]) 12/21/2022 Bipolar affective disorder, current episode hypomanic ([facility]) 12/21/2022 Well woman exam with routine gynecological exam 03/19/2023 Myalgia 02/18/2024 Fallopian tube disorder 03/13/2024 Anovulation 03/13/2024 Female infertility 03/13/2024 Resolved Ambulatory Problems Diagnosis Date Noted No Resolved Ambulatory Problems Past Medical History: Diagnosis Date Abnormal uterine bleeding (AUB) ADHD (attention deficit hyperactivity disorder) ([facility]) Amenorrhea Bilateral sacroiliitis Cervical cancer (CMS/HCC) Chronic [...] URI (upper respiratory infection) 03[place]01[place] [facility] [place] Social History Tobacco Use Smoking [...] 03/2020 lap, D and C - at [facility] DILATION AND CURETTAGE OF UTERUS 03/07/2013 [...] nursing note reviewed. Exam conducted with a etcher printed circuit boards present. Vitals: Estimated body mass index is [...] of: Uriel Meade DO documented in this encounterProgress West [id number] Hospital Discharge instructions Patient Education 06/21/2024 15:05:42 [...] or martín tea. Taking prescription medicine or mrxt-xsi-oljduxr medicine as told by your health care [...] sour. These include lemonade, martín oliverio, lemon [place] soda, ice water, and sparkling water. Things [...] your appetite or trigger nausea. General instructions [place] your teeth or use a mouth rinse after meals. Take uxbl-lyq-ifzfjrg and prescription medicines only as told by [...] provider. Document Revised: 09/13/2020 Document Reviewed: 09/13/2020 reQall Patient Education 2023 [employer]. 06/21/2024 15:05:31 Esophagitis Esophagitis Esophagitis is inflammation [...] Follow these instructions at home: Medicines Take tume-diq-yfyvpoh and prescription medicines only as told by [...] powder, vinegar, hot sauces, and barbecue sauce. ?[place]umas fruit juices and citrus fruits, such as oranges, brooke, and limes. ?Tomato-based foods, such as red sauce, chili, salsa, and pizza with red sauce. ?Fried and fatty foods, such as donuts, lao fries, potato chips, and high-fat dressings. ?High-fat [...] provider. Document Revised: 08/30/2020 Document Reviewed: 08/30/2020 reQall Patient Education 2023 [employer]. 06/21/2024 15:05:28 Cannabinoid Hyperemesis Syndrome Cannabinoid Hyperemesis [...] as coffee and soda. Take and apply fdhy-wyo-izwbujs and prescription medicines only as told by [...] provider. Document Revised: 06/19/2022 Document Reviewed: 06/19/2022 reQall Patient Education 2023 [employer]. Follow Up Care 06/19/2024 10:48:26 With:Uriel MEADE Address: [address] [place] [address]- [employer] (1) When:3 to 5 days Comments:Call for followup appointment With:Carolyne Collazo Address: [address] [place] [address]- [employer] (1) When:7 to 10 days Comments:Call for followup appointment [facility] 04-19-2025 Elly Understands Medication Education Yes Joel Medication Education [facility]25 NoteProgress Note-Physician Assessment/Plan Patient is a 28-year-old female (on third in first trimester. Reports 1 live and 1 previous miscarriage) who was admitted with intractable nausea and vomiting likely secondary toesophagitis/gastritis with associated epigastric and esophageal pain. Admitted 06/19/24 DIRECTOR OF PHYSICAL THERAPY consulted for assistance in management 1. Cannabis [...] Basic Metabolic Panel CBC w/ Auto Diff [facility] Hospital Care/Day Moderate 35 Minutes [address] 2. Esophagitis (K20.90: Esophagitis, unspecified without bleeding) Famotidine, Protonix IV twice daily, Carafate 4 times daily ACHS. As needed Dilaudid Ordered: Basic Metabolic Panel CBC w/ Auto Diff eGFR Lipase Level [facility] Hospital Care/Day Moderate 35 Minutes 08176 3. Intractable vomiting (R11.10: Vomiting, unspecified) See above management. Ordered: [facility] Hospital Care/Day Moderate 35 Minutes 39446 4. First trimester (Z34.91: Encounter for supervision of normal , unspecified, first trimester) Defer management to OB. Underwent transvaginal ultrasound and OB following labs. 5. On deep vein thrombosis (DVT) prophylaxis (Z79.899: Other technician terminal and repeater (current) drug therapy) SCDs bilateral lower extremity, [...] more aggressive medical management with assistance of DIRECTOR OF PHYSICAL THERAPY. Had extensive discussion and saw patient at [...] -- -- lidocaine to (more content not included)...[facility] HospitalComment on above:Result Comment: Electronically Signed By: Josh Gilbert III, DO\.br\Date and Time Signed: 06/21/24 15:01 [id number] Evaluation + Plan note Extracted from:Title:APSO NoteAuthor:Josh Gilbert III, DO.Date:06/21/24 Patient is a 28-year-old fem oliverio (on third in first trimester. Reports 1 live and 1 previous miscarriage) who was admitted with intractable nausea and vomiting likely secondary to esophagitis/gastritis with associated epigastric and esophageal pain. Admitted 06/19/24 DIRECTOR OF PHYSICAL THERAPY consulted for assistance in management 1. Cannabis [...] Diff [facility] Hospital Care/Day Moderate 35 Minutes 61091 2. Esophagitis (K20.90: Esophagitis, unspecified without bleeding) Famotidine, Protonix IV twice daily, Carafate 4 times daily ACHS. As needed Dilaudid Ordered: Basic Metabolic Panel CBC w/ Auto Diff eGFR Lipase Level [facility] Hospital Care/Day Moderate 35 Minutes 92568 3. Intractable vomiting (R11.10: Vomiting, unspecified) See above management. [facility]: [facility]Day Moderate 35 Minutes 92867 4. First trimester (Z34.91: Encounter for supervision of normal , unspecified, first trimester) Defer management to OB. Underwent transvaginal ultrasound and OB following labs. 5. On deep vein thrombosis (DVT) prophylaxis (Z79.899: Other technician terminal and repeater (current) drug therapy) SCDs bilateral lower extremity, [...] to eating up to 3times per day, [id number], vicodin for pain, will see pt in [...] associated epigastric and esophageal pain. Admitted 06/19/24 DIRECTOR OF PHYSICAL THERAPY consulted for assistance in management 1. Esophagitis (K20.90: Esophagitis, unspecified without bleeding) Carafate suspension 4 times daily ACHS, famotidine 20 mg IV twice daily Ordered: Basic Metabolic Panel CBC w/ Auto Diff [facility] Hospital Care/Day Moderate 35 Minutes 52848 2. Intractable vomiting (R11.10: Vomiting, unspecified) As needed Zofran. Trialing Reglan IV once. Do not have B6 or Unisom available on our formulary. Appreciate DIRECTOR OF PHYSICAL THERAPY opinion on this. LR 500 mL bolus this morning and maintain LR at 90 mL/h. Clear liquid advance to regular diet at patient's request. She will trial regular diet as tolerated. Ordered: [facility] Hospital Care/Day Moderate 35 Minutes 68463 3. First trimester (Z34.91: Encounter for supervision of normal , unspecified, first trimester) DIRECTOR OF PHYSICAL THERAPY to manage. Patient reported greenish vaginal discharge. Deferred to DIRECTOR OF PHYSICAL THERAPY for assessment/management of this. Underwent transvaginal ultrasound this a.m. :Shows early single live intrauterine gestation. Composite ultrasound age 6 weeks, 2 days which corresponds to estimated gestational age by LMP. Subchorionic hemorrhage minimally changed from 06/16/2024 and measuring up to 2.8 cm. History of IVF with embryo transfer on 05/27/2024. 4. On deep vein thrombosis (DVT) prophylaxis (Z79.899: Other assisted (current) drug therapy) SCDs bilateral lower extremities. [...] patient on clear liquid diet. I did halfway house counselor patient that I do not think [...] deep vein thrombosis (DVT) prophylaxis (Z79.899: Other assisted (current) drug therapy) SCD, early ambulation Orders: [...] w/ Indices Clear Liquid Diet Consult to Chemistry Lecturer Magnesium Level Notify Provider Vital Signs Notify [...] care of the patient was transitioned to ia upon shift change for consult DIRECTOR OF PHYSICAL THERAPY and admission to the hospital. The patient [...] to his services with consult Dr. Meade. [facility] 04-19-2025 NoteProgress Note-Physician Patient: INDU ST Age: [...] CT of the abdomen / SNOMED CT 6590841228 / Confirmed Abnormal uterine bleeding. / SNOMED CT 6414038260 / Confirmed Amenorrhea / SNOMED CT 01999986 / Confirmed Anemia / SNOMED CT 442478119 / Confirmed Anxiety / SNOMED CT 70047943 / Confirmed Asthma / SNOMED CT 645374763 / Confirmed Asthma / SNOMED CT 488287162 / Confirmed Attention deficit hyperactivity disorder / SNOMED CT 2585630274 / Confirmed Benign neoplasm of pituitary gland / SNOMED CT 186687587 / Confirmed Bilateral arthritis of sacroiliac joint / SNOMED CT 2417530328 / Confirmed Bipolar disorder / SNOMED CT 14050501 / Confirmed Chronic rhinitis / SNOMED CT 261776727 / Confirmed Chronic vaginitis / SNOMED CT 83727515 / Confirmed Depressive disorder / SNOMED CT 94142777 / Confirmed Disorder of pituitary gland / SNOMED CT 1669279447 / Confirmed Endometriosis (clinical) / SNOMED CT 583721500 / Confirmed Esophagitis / SNOMED CT 19175253 / Confirmed Fatigue / SNOMED CT 588319447 / Confirmed Gastritis / SNOMED CT 9025689 / Confirmed Heartburn / SNOMED CT 48640462 / Confirmed History of laparoscopy / SNOMED CT 0527925512 / Confirmed Malignant tumor of cervix / SNOMED CT 952569313 / Confirmed Miscarriage / SNOMED CT 89207893 / Confirmed Nausea and vomiting / SNOMED CT 65395874 / Confirmed Pain in pelvis / SNOMED CT 447422456 / Confirmed Prolactin level above reference range / SNOMED CT 5278645352 / Confirmed Prolactinoma / SNOMED CT 796488303 / Confirmed Sciatica / SNOMED CT 82453250 / Confirmed Scoliosis / SNOMED CT 418832536 / Confirmed Seasonal allergic rhinitis / SNOMED CT 629284661 / Confirmed Stress-related physiological response affecting medical condition / SNOMED CT 30533566 / Confirmed 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 Resolved [...] to eating up to 3times per day, [id number], vicodin for pain, will see pt in office early next week, precautions given to patient, elevated lipase and leukocytosis resolved but secondary to hyperemesis, discussed case with dr Cook [facility] CenterComment on above:Result Comment: Electronically Signed By: Uriel MEADE DO.br\Date and Time Signed: 06/21/24 10:02 [id number] NoteProgress Note-Physician Assessment/Plan Patient is a 28-year-old female (on third in first trimester. Reports 1 live and 1 previous miscarriage) who was admitted with intractable nausea and vomiting likely secondary toesophagitis/gastritis with associated epigastric and esophageal pain. Admitted 06/19/24 DIRECTOR OF PHYSICAL THERAPY consulted for assistance in management 1. Esophagitis (K20.90: Esophagitis, unspecified without bleeding) Carafate suspension 4 times daily ACHS, famotidine 20 mg IV twice daily Ordered: Basic Metabolic Panel CBC w/ Auto Diff [facility] Hospital Care/Day Moderate 35 Minutes 73401 2. Intractable vomiting (R11.10: Vomiting, unspecified) As needed Zofran. Trialing Reglan IV once. Do not have B6 or Unisom available on our formulary. Appreciate DIRECTOR OF PHYSICAL THERAPY opinion on this. LR 500 mL bolus this morning and maintain LR at 90 mL/h. Clear liquid advance to regular diet at patient's request. She will trial regular diet as tolerated. Ordered: [facility] Care/Day Moderate 35 Minutes 44584 3. First trimester (Z34.91: Encounter for supervision of normal , unspecified, first trimester) DIRECTOR OF PHYSICAL THERAPY to manage. Patient reported greenish vaginal discharge. Deferred to DIRECTOR OF PHYSICAL THERAPY for assessment/management of this. Underwent transvaginal ultrasound this a.m. :Shows early single live intrauterine gestation. Composite ultrasound age 6 weeks, 2 days which corresponds to estimated gestational age by LMP. Subchorionic hemorrhage minimally changed from 06/16/2024 and measuring up to 2.8 cm. History of IVF with embryo transfer on 05/27/2024. 4. On deep vein thrombosis (DVT) prophylaxis (Z79.899: Other technician terminal and repeater (current) drug therapy) SCDs bilateral lower extremities. [...] NORMAL (06/20/24 06:53:00) Gluc (more content not included)...[facility] HospitalComment on above: Result Comment: Electronically Signed By: Josh Gilbert III, DO\Date and Time Signed: 06/20/24 11:57 [id number] NoteProgress Note-Physician Patient: INDU ST Age: 28 [...] scheduled appt with for next sunday, appreciate [facility]Comment [facility]:Result Comment: Electronically Signed By: Uriel MEADE DO\newton\Date and Time Signed: 06/20/24 07:14 [id number] NoteHistory and Physical Chief Complaint pt rpeorts [...] Lymph Auto: 8.4 % Low (06/19/24 11:49:00) [place] Auto: 3.6 % Low (06/19/24 11:49:00) Eos Auto: 0.1 % (06/19/24 11:49:00) Basophil Auto: 0.2 % (06/19/24 11:49:00) Neutro Absolute: 15.4 E9/L High (06/19/24 11:49:00) Lymph Absolute: 1.5 E9/L (06/19/24 11:49:00) [place] Absolute: 0.6 E9/L (06/19/24 11:49:00) Eos Absolute: [...] patient on clear li (more content not included)...[facility] HospitalComment on above:Result Comment: Electronically Signed By: Samantha QUINN DO.seble\Date and Time Signed: 06/19/24 21:45 [id number] Evaluation + Plan note Diagnostic Tests Pending * Estradiol Level 06/13/24 [facility] 03-11-2025 Evaluation + Plan note Diagnostic Tests Pending * Estradiol Level 05/13/24 * FSH and LH 05/13/24 [facility] 02-26-2025 Evaluation + Plan note Diagnostic Tests Pending * Estradiol Level 04/30/24 [facility] 02-10-2025 History of Present illness Narrative* Carolyne [...] Influenza Vaccine (1) 11/04/2023 documented in this encounterProgress West [id number] History of Present illness Narrative* Akua Streeter, ANN - 03/12/2024 8:00 AM EST Reason for Appointment: Patient ID: Indu St is a 28 y.o. female who presents for No chief complaint on file. Patient presents today via telephone call for a telehealth appointment. Patients Phone #: [phone] (mobile) Current Medications: has a current medication list which includes the following prescription(s): alprazolam, breyna, cholecalciferol, coenzyme q-10, fish oil concentrate, and vitamins. Medical History: Active Ambulatory Problems Diagnosis Date Noted Bipolar 1 disorder ([facility]) 11/13/2022 Anxiety 12/21/2022 Asthma ([facility] [...] bleeding (AUB) ADHD (attention deficit hyperactivity disorder) ([facility]) Amenorrhea Bilateral sacroiliitis ([facility] [...] 03/2020 lap, D and C - at [facility] DILATION AND CURETTAGE OF UTERUS 03/07/2013 [...] of: Uriel Meade DO documented in this encounterProgress West [id number] History of Present illness Narrative* PATRICIA Joyner - 02/18/2024 3:33 PM ESTAssociated Problem(s): Myalgia Dr Collazo put in lab orders and patient will go [place] [facility] [place] call with results * PATRICIA Joyner [...] from the original note were not included. nIdu St is a 28 y.o. female presents with chief complaint of No chief complaint on file. HPI: History of Present Illness Patient here via televisitTelehealth Encounter: Verbal consent was obtained from patient for Telehealth Services. Patient Location ([place]) Patient is concerned about ongoing joint pain [...] and patient will go to [facility] Will call with results Health Maintenance Due Topic Date Due Influenza Vaccine (1) 11/04/2023 documented in this encounterProgress West [id number] Evaluation + Plan note Diagnostic Tests Pending * .JESUS Individual Abs 02/18/24 * Rheumatoid Factor Quantitative 02/18/24 [facility] 11-13-2024 History of Present illness Narrative* Shari Gomez, ANN - 01/16/2024 8:10 AM EST Reason for Appointment: Patient ID: Indu St is a 28 y.o. female who presents for Telehealth and Infertility Patient presents today via telephone call for a telehealth appointment. Patients Phone #: [phone] (mobile) Current Medications: has a current medication list which includes the following prescription(s): alprazolam and breyna. Medical History: Active Ambulatory Problems Diagnosis Date Noted Bipolar 1 disorder ([facility]) 11/13/2022 Anxiety 12/21/2022 Asthma ([facility]) 12/21/2022 Attention deficit hyperactivity disorder (ADHD), combined type ([facility]) 12/21/2022 Proteinuria 08/03/2010 PTSD (post-traumatic stress disorder) ([facility]) 12/21/2022 Bipolar affective disorder, current episode hypomanic ([facility]) 12/21/2022 Well woman exam with routine gynecological exam 03/19/2023 Resolved Ambulatory Problems Diagnosis Date Noted No Resolved Ambulatory Problems Past Medical History: Diagnosis Date Abnormal uterine bleeding (AUB) ADHD (attention deficit hyperactivity disorder) ([facility]) Amenorrhea Bilateral sacroiliitis ([facility]) Cervical cancer ([facility]) Chronic fatigue Chronic rhinitis Chronic [...] 03/2020 lap, D and C - at [facility] DILATION AND CURETTAGE OF UTERUS 03/07/2013 [...] pt has appt with IVF clinic in [place]. Pt is having weird symptoms- anal itching, [...] of: Uriel Meade DO documented in this encounterProgress West [id number] History of Present illness Narrative* Akua Streeter [...] Problems Diagnosis Date Noted Bipolar 1 disorder ([facility]) 11/13/2022 Anxiety 12/21/2022 Asthma ([facility] [...] URI (upper respiratory infection) 03/01/2019 [facility] [place] Social History Tobacco Use Smoking [...] 03/2020 lap, D and C - at [facility] DILATION AND CURETTAGE OF UTERUS 03/07/2013 [...] nursing note reviewed. Exam conducted with a etcher printed circuit boards present. Vitals: Estimated body mass index is [...] [facility] Patient is to call office when she starts cycle and nurse will send HSG and HCG to [facility]. Will hold off on fertility meds for the next cycle until HSG results are back. Patient to return to clinic for annual and PRN as needed. Documented by Akua Streeter LPN on behalf of: Uriel Meade DO documented in this encounterProgress West [id number] Evaluation + Plan note Extracted from:Title:ANES Post GeneralAuthor:Lenny Moreno DODate:10/15/23 Plan Transfer/Discharge: Patient exhibiting no signs of N/V. Hydration status is adequate. Extracted from:Title:Josh Basic PREAuthor:Lenny Moreno DODate: 10/15/23 Plan [place] [employer] (ASA) physical status classification: Class II. Anesthetic Preoperative Plan: Anesthesia General.[facility] 08-12-2024 Hospital Discharge instructions Patient Education 10/15/2023 09:50:27 Colonoscopy, Care After Surgery [facility] (CUSTOM) Colonoscopy Care After Surgery Please read the instructions outlined below and refer to this sheet in the next few weeks. These discharge instructions provide you with general information [facility] Your doctor may also give [...] 09:50:26 Endoscopy, Care After Procedure [facility] [place]) Endoscopy Care After Procedure Please read [...] Document Re-Released: 08/13/2006 ExitCare Patient Information 2009 [employer]. Follow Up Care 09/13/2023 15:40:21 With:Alex Knutson Address: [address] [place] [address], [address] [place] [address]- [phone] Business (1) When:1 to 2 weeks Comments:Call for any problems. [facility] 08-12-2024 NoteProgress Note-Physician Patient: INDU [...] Daily, # 527 gm, Refills(s) 5, Pharmacy: [facility] #[id number], 167, cm, 09/13/23 14:57:00 EDT, Height/Length Dosing, 48.9, kg, 09/13/23 14:57:00 EDT, Weight Dosing Pantoprazole [address] Tab: 40 mg = 1 tab(s), Oral, Daily, # 30 tab(s), Refills(s) 4, Pharmacy: [facility] #[id number], 167, cm, 09/13/23 14:57:00 EDT, Height/Length Dosing, [...] CT of the abdomen / SNOMED CT 7105841951 / Confirmed Abnormal uterine bleeding. / SNOMED CT 2888214030 / Confirmed Amenorrhea / SNOMED CT 39159647 / Confirmed Anemia / SNOMED CT 174934286 / Confirmed Anxiety / SNOMED CT 35842586 / Confirmed Asthma / SNOMED CT 368428229 / Confirmed Attention deficit hyperactivity disorder / SNOMED CT 6957029780 / Confirmed Benign neoplasm of pituitary gland / SNOMED CT 874187580 / Confirmed Bilateral arthritis of sacroiliac joint / SNOMED CT 0705671268 / Confirmed Bipolar disorder / SNOMED CT 88162519 / Confirmed Chronic rhinitis / SNOMED CT 683050532 / Confirmed Chronic vaginitis / SNOMED CT 02118662 / Confirmed Depressive disorder / SNOMED CT 76084487 / Confirmed Disorder of pituitary gland / SNOMED CT 7431667932 / Confirmed Endometriosis (clinical) / SNOMED CT 469071073 / Confirmed Esophagitis / SNOMED CT 29261962 / Confirmed Fatigue / SNOMED CT 443639080 / Confirmed Gastritis / SNOMED CT 1924377 / Confirmed Heartburn / SNOMED CT 29731314 / Confirmed History of laparoscopy / SNOMED CT 3553992352 / Confirmed Malignant tumor of cervix / SNOMED CT 890367918 / Confirmed Miscarriage / SNOMED CT 59333093 / Confirmed Nausea and vomiting / SNOMED CT 86770914 / Confirmed Pain in pelvis / SNOMED CT 287572279 / Confirmed Prolactin level above reference range / SNOMED CT 4487039270 / Confirmed Prolactinoma / SNOMED CT 548294076 / Confirmed Sciatica / SNOMED CT 29416763 / Confirmed Seasonal allergic rhinitis / SNOMED CT 404923298 / Confirmed Stress-related physiological response affecting medical condition / SNOMED CT 19156574 / Confirmed Visceral hypersensitivity syndrome / SNOMED CT 9855158967 / Confirmed Weight loss / SNOMED CT 847454050 / Confirmed Physical Examination Vital Signs 10/15/2023 [...] 36.7 DegC Heart Rate (more content not included)...[facility] HospitalComment on above:Result Comment: Electronically Signed By: Lenny Moreno DO\.br\Date and Time Signed: 10/15/23 10:06 [id number] NoteColonoscopy Procedure Report Patient: INDU ST Age: [...] Daily, # 527 gm, Refills(s) 5, Pharmacy: [facility] #[id number], 167, cm, 09/13/23 14:57:00 EDT, Height/Length Dosing, 48.9, kg, 09/13/23 14:57:00 EDT, Weight Dosing Pantoprazole [address] Tab: 40 mg = 1 tab(s), Oral, Daily, # 30 tab(s), Refills(s) 4, Pharmacy: [facility] #[id number], 167, cm, 09/13/23 14:57:00 EDT, Height/Length Dosing, [...] hours. Education and Follow-up: Counseled: Patient, Family.[facility] Comment on above:Other Comment: Missing Attachment - attachment storage system not supported [id number] Can be viewed in source system Missing Attachment - attachment storage system not supported [id number] Can be viewed in source systemMissing Attachment - attachment storage system not supported [id number] Can be viewed in source systemMissing Attachment - attachment storage system not supported [id number] Can be viewed in source systemMissing Attachment - attachment storage system not supported [id number] Can be viewed in source systemMissing Attachment - attachment storage system not supported [id number] Can be viewed in source systemMissing Attachment - attachment storage system not supported [id number] Can be viewed in source [id number] Note Patient Education - Text Colonoscopy Care [...] [facility] Your doctor may also give [...] Document Re-Released: 08/13/2006 ExitCare? Patient Information ?2009 [employer].[facility] 10-15-2023 NoteProgress Note-Physician Patient: INDU [...] Daily, # 527 gm, Refills(s) 5, Pharmacy: [facility] #[id number], 167, cm, 09/13/23 14:57:00 EDT, Height/Length Dosing, 48.9, kg, 09/13/23 14:57:00 EDT, Weight Dosing Pantoprazole [address] Tab: 40 mg = 1 tab(s), Oral, Daily, # 30 tab(s), Refills(s) 4, Pharmacy: [facility] #[id number], 167, cm, 09/13/23 14:57:00 EDT, Height/Length Dosing, [...] CT of the abdomen / SNOMED CT 1165241091 / Confirmed Abnormal uterine bleeding. / SNOMED CT 6502991351 / Confirmed Amenorrhea / SNOMED CT 38617294 / Confirmed Anemia / SNOMED CT 682388499 / Confirmed Anxiety / SNOMED CT 39572774 / Confirmed Asthma / SNOMED CT 085031229 / Confirmed Attention deficit hyperactivity disorder / SNOMED CT 1708185402 / Confirmed Benign neoplasm of pituitary gland / SNOMED CT 410738661 / Confirmed Bilateral arthritis of sacroiliac joint / SNOMED CT 2700240056 / Confirmed Bipolar disorder / SNOMED CT 49058543 / Confirmed Chronic rhinitis / SNOMED CT 042917732 / Confirmed Chronic vaginitis / SNOMED CT 31484451 / Confirmed Depressive disorder / SNOMED CT 33525014 / Confirmed Disorder of pituitary gland / SNOMED CT 2314887286 / Confirmed Endometriosis (clinical) / SNOMED CT 108326110 / Confirmed Esophagitis / SNOMED CT 35922954 / Confirmed Fatigue / SNOMED CT 448363804 / Confirmed Gastritis / SNOMED CT 6862114 / Confirmed Heartburn / SNOMED CT 64402353 / Confirmed History of laparoscopy / SNOMED CT 9918205587 / Confirmed Malignant tumor of cervix / SNOMED CT 199399152 / Confirmed Miscarriage / SNOMED CT 98965187 / Confirmed Nausea and vomiting / SNOMED CT 01051546 / Confirmed Pain in pelvis / SNOMED CT 811325015 / Confirmed Prolactin level above reference range / SNOMED CT 3772763166 / Confirmed Prolactinoma / SNOMED CT 371030370 / Confirmed Sciatica / SNOMED CT 90932084 / Confirmed Seasonal allergic rhinitis / SNOMED CT 099622611 / Confirmed Stress-related physiological response affecting medical condition / SNOMED CT 69381327 / Confirmed Visceral hypersensitivity syndrome / SNOMED CT 1528081042 / Confirmed Weight loss / SNOMED CT 476571625 / Confirmed, Active Problems (31) Abnormal CT of the abdomen Abnormal uterine bleeding. 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 Bipolar disorder Chronic rhinitis Chronic vaginitis Depressive disorder Disorder of pituitary gland Endometriosis (cl (more content not included)...[facility] Comment on above:Result Comment: Electronically Signed By: Lenny Moreno DO\.br\Date and Time Signed: 10/15/23 07:34 [id number] Telephone encounter Note* Telephone Encounter - Twyla Caraballo MA - 08/14/2023 11:08 AM EDT Received MRI results completed 08/02/2023, scanned to chart Twyla Caraballo Astrophysics Professor II Endocrinology & Metabolism [facility] F20 & X20 [facility]06-11-2024 Miscellaneous Notes* Telephone Encounter - Twyla Caraballo MA - 08/14/2023 11:08 AM EDT Received MRI results completed 08/02/2023, scanned to chart Twyla Caraballo Astrophysics Professor II Endocrinology & Metabolism [facility] F20 & X20 documented in [facility] encounterWay[facility] Reason for referral (narrative)* Consultation (Routine) - AuthorizedSpecialtyDiagnoses / Procedures Referred By ContactReferred To ContactGastroenterology Abiodun Ochoa PA-C [address] [place] [facility] [address] [place] [address] [id number] [place] [address] Referral IDStatusReasonStart DateExpiration DateVisits RequestedVisits [id number] Specialty Services Required / [facility] Work Phone: [phone]) 739-112304-10-2024 NoteHNO ID: [id number] Author: KARINA VINCENT MD Service: ? Author [...] June 13, 2023 TIME of SERVICE: 10:12 [facility]04-10-2024 History of Present illness Narrative* Karina [...] of SERVICE: 10:12 AM documented in [facility] encounterWay[facility]11-[facility]-2021 NoteHNO ID: [id number] Author: Renetta Beltran MD Service: Reproductive Endocrinology [...] Renetta Beltran M.D. Reproductive Endocrinology and InfertilityCastleview HospitalUpnaweao05-54-0869 NoteHNO ID: [id number] Author: ESVIN Martinez) Service: Radiology Author Type: [...] Appointments Appointment Date:10/01/2023 09:00:00 AM Scheduled Provider: Location:[facility] Appointment Type:Surgery FT [facility] Evaluation + Plan note Future Appointments Appointment Date:06/20/2024 07:00:00 AM Scheduled Provider: Location:.[facility] Appointment Type:US (FT) Diagnostic Tests Pending * Estradiol Level 06/16/24 Future Scheduled Tests Radiology* US Transvaginal 06/20/24 [facility] evaluation note* Diagnosis Prolactinoma (HCC)- Primary Benign neoplasm of pituitary gland and craniopharyngeal duct (pouch) 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HCC) Unspecified disorder of the pituitary gland and its hypothalamic control Elevated prolactin level Unspecified endocrine disorder [facility] Diagnosis Nausea and vomiting, unspecified vomiting type- Primary Gastritis, presence of bleeding unspecified, unspecified chronicity, unspecified gastritis type documented in this encounter [facility] Work Phone: Evaluation note* Diagnosis Female infertility Female infertility of unspecified origin Vaginal odor Unspecified symptom associated with female genital organs documented in this encounter [facility]* Diagnosis Myalgia- Primary Unspecified [...] assisted reproductive fertility procedure cycle Anxiety, generalized ([facility]) [facility] Diagnosis Nausea and vomiting, unspecified vomiting type- Primary documented in this encounter [facility] Work Phone: Evaluation note* Diagnosis 14 weeks gestation of ([facility])- Primary 15 weeks gestation of ([facility]) Nausea and vomiting, unspecified vomiting type Chest pain, unspecified type documented in this encounter [facility] Work Phone: Evaluation note* Diagnosis Myalgia- Primary Unspecified myalgia and myositis Well woman exam with routine gynecological exam Routine gynecological examination STD exposure Second trimester ([facility]) state, incidental 15 weeks gestation of ([facility]) Screening, , for anatomic survey ([facility]) Encounter for anatomic survey documented [facility] encounter [facility]* Diagnosis Hyperemesis of - Primary Mild hyperemesis gravidarum, unspecified as to episode of care Poor weight gain of , second trimester In vitro fertilization Encounter for assisted reproductive fertility procedure cycle 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, antepartum Abnormal ultrasound of kidney 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) Anxiety during [facility] Diagnosis Hyperemesis of Mild hyperemesis gravidarum, unspecified as to episode of care Poor weight gain of , second trimester [facility]* Diagnosis Nausea and vomiting during [O21.9]- Primary documented [facility]* Diagnosis Hyperemesis of - Primary Mild hyperemesis gravidarum, unspecified as to episode of care Gastroesophageal reflux disease, unspecified whether esophagitis present [facility]* Diagnosis Myalgia- Primary Unspecified myalgia and myositis Second trimester ([facility]) state, incidental 20 weeks gestation of ([facility]) documented in this encounter [facility]* Diagnosis Hyperemesis of - Primary Mild hyperemesis gravidarum, unspecified as to episode of care renal anomaly, single gestation Marijuana use during 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 documented [facility]* Diagnosis Myalgia- Primary Unspecified myalgia and myositis 23 weeks gestation of ([facility]) Second trimester ([facility]) state, incidental Hyperemesis of ([facility]) Mild hyperemesis gravidarum, unspecified as to episode of care resulting from in vitro fertilization in second trimester ([facility]) Diabetes mellitus screening Screening for diabetes mellitus documented in this encounter [facility] HealthcareEvaluation [facility]* Diagnosis 16 weeks gestation of Hyperemesis of Mild hyperemesis gravidarum, unspecified as to episode of care documented [facility]* Diagnosis Hyperemesis of - Primary Mild hyperemesis gravidarum, unspecified as to episode of care renal anomaly, single gestation Marijuana use during 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 Nausea and vomiting during Poor weight gain of , second trimester In vitro fertilization Encounter for assisted reproductive fertility procedure cycle 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, antepartum documented [facility]* Diagnosis Myalgia- Primary Unspecified myalgia and myositis 27 weeks gestation of ([facility]) Second trimester ([facility]) state, incidental Hyperemesis of ([facility]) Mild hyperemesis gravidarum, unspecified as to episode of care resulting from in vitro fertilization in second trimester ([facility]) Breech presentation, single or unspecified fetus ([facility]) documented [facility] encounter [facility]* Diagnosis Myalgia- Primary Unspecified myalgia and myositis Anemia, unspecified type- Primary Third trimester ([facility]) state, incidental 29 weeks gestation of ([facility]) Bipolar 1 disorder (HCC) PTSD (post-traumatic stress disorder) Posttraumatic stress disorder documented in [facility] encounter [facility]* Diagnosis renal anomaly, single gestation- Primary Marijuana use during resulting from in vitro fertilization in second trimester 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 documented [facility]* Diagnosis 16 weeks gestation of Hyperemesis of Mild hyperemesis gravidarum, unspecified as to episode of care documented in [facility]* Diagnosis 30 weeks gestation of - Primary documented in this [facility]* Diagnosis Myalgia- Primary Unspecified myalgia and myositis Third trimester ([facility]) state, incidental 31 weeks gestation of ([facility]) Encounter for in vitro fertilization Encounter for assisted reproductive fertility procedure cycle Hemorrhoids, unspecified hemorrhoid type documented [facility] encounter [facility]* Diagnosis Myalgia- Primary Unspecified myalgia and myositis Third trimester ([facility]) state, incidental 33 weeks gestation of ([facility]) documented in this encounter [facility] course Narrative No data available for this section [facility] Discharge instructions* Attachments The following attachments cannot be sent through Care Everywhere. * Gastritis ED (Algerian) * Nausea and Vomiting, Adult ED (Algerian) * Cannabis hyperemesis syndrome (Algerian) [facility] Work Phone: Hospital Discharge instructions No data available for this section [facility] Discharge instructions* Attachments The following attachments cannot be sent through Care Everywhere. * Nausea and Vomiting, Adult ED (Algerian) [facility] Work Phone: InstructionsNot on filedocumented in this [...] be sent through Care Everywhere. * Preeclampsia (Algerian) documented in this encounterProMedica Health SystemInstructionsNot on file documented in this encounterProMedica Health SystemInstructionsNot on file documented in this encounterProMedica Health SystemInstructionsNot on file documented in this encounterProMedica Health SystemInstructionsNot on file documented in this encounterProMedica Health SystemProgress note No data available for this section [facility] Health Reason for visit Narrative* Auth/CertSpecialtyDiagnoses / ProceduresReferred By ContactReferred To Contact Diagnoses 14 weeks gestation of ([facility]) [place] [address] [place] [address] Phone: tel: fax: [facility] [address] [place] [address] Phone: tel: fax: Referral IDStatusReasonStart DateExpiration DateVisits RequestedVisits [id number] [facility] Work Phone: Redivx for visit Narrative* Consultation (Routine) - Pending ReviewSpecialtyDiagnoses / ProceduresReferred By ContactReferred To ContactMaternal and Medicine Diagnoses Hyperemesis of Poor weight gain of , second trimester Mario Alberto Ortiz MD [address] [facility], [address] [place] [address] Phone: tel: fax: Maternal- Medicine at [facility] [address] [place] [address] Phone: tel: fax: Referral IDStatusReasonStart DateExpiration DateVisits RequestedVisits [id number] Review Specialty Services Required [facility] Summary Purpose Family History No Family History [...] STEM W/O W/CONTRAST MATERIAL Karina Vincent MD [address] [place] [address] [facility] [place] [address] Referral IDStatusReasonStart DateExpiration DateVisits RequestedVisits [id number] Review Auto-Generated Referral Additional Source Comments INFORMATION SOURCE (unrecogn ized section and content) DATE CREATED AUTHOR 04/15/2020 [facility] DATE CREATED AUTHOR AUTHOR'S ORGANIZ ATION 01/22/2021 [facility] DATE CREATED AUTHOR AUTHOR'S ORGANIZ ATION 07/30/2023 [facility] DATE CREATED AUTHOR AUTHOR'S ORGANIZ ATION 08/24/2023 [facility] DATE CREATED AUTHOR AUTHOR'S ORGANIZ ATION 09/19/2023 [facility] DATE CREATED AUTHOR AUTHOR'S ORGANIZ ATION 10/16/2023 [facility] DATE CREATED AUTHOR AUTHOR'S ORGANIZ ATION 10/18/2023 [facility] DATE CREATED AUTHOR AUTHOR'S ORGANIZ ATION 10/19/2023 [facility] DATE CREATED AUTHOR AUTHOR'S ORGANIZ ATION 02/21/2024 [facility] DATE CREATED AUTHOR AUTHOR'S ORGANIZ ATION 02/23/2024 [facility] DATE CREATED AUTHOR AUTHOR'S ORGANIZ ATION 02/24/2024 [facility] DATE CREATED AUTHOR AUTHOR'S ORGANIZ ATION 05/02/2024 [facility] DATE CREATED AUTHOR AUTHOR'S ORGANIZ ATION 05/05/2024 [facility] DATE CREATED AUTHOR AUTHOR'S ORGANIZ ATION 05/08/2024 [facility] DATE CREATED AUTHOR AUTHOR'S ORGANIZ ATION 05/15/2024 [facility] DATE CREATED AUTHOR AUTHOR'S ORGANIZ ATION 05/16/2024 [facility] DATE CREATED AUTHOR AUTHOR'S ORGANIZ ATION 05/22/2024 [facility] DATE CREATED AUTHOR AUTHOR'S ORGANIZ ATION 05/23/2024 [facility] DATE CREATED AUTHOR AUTHOR'S ORGANIZ ATION 06/01/2024 [facility] DATE CREATED AUTHOR AUTHOR'S ORGANIZ ATION 06/08/2024 [facility] DATE CREATED AUTHOR AUTHOR'S ORGANIZ ATION 06/09/2024 [facility] DATE CREATED AUTHOR AUTHOR'S ORGANIZ ATION 06/12/2024 [facility] DATE CREATED AUTHOR AUTHOR'S ORGANIZ ATION 06/14/2024 [facility] DATE CREATED AUTHOR AUTHOR'S ORGANIZ ATION 06/15/2024 [facility] DATE CREATED AUTHOR AUTHOR'S ORGANIZ ATION 06/17/2024 [facility] DATE CREATED AUTHOR AUTHOR'S ORGANIZ ATION 06/20/2024 [facility] DATE CREATED AUTHOR AUTHOR'S ORGANIZ ATION 06/21/2024 [facility] DATE CREATED AUTHOR AUTHOR'S ORGANIZ ATION 06/22/2024 [facility] DATE CREATED AUTHOR AUTHOR'S ORGANIZ ATION 06/23/2024 [facility] DATE CREATED AUTHOR AUTHOR'S ORGANIZ ATION 06/24/2024 [facility] DATE CREATED AUTHOR AUTHOR'S ORGANIZ ATION 07/16/2024 [facility] DATE CREATED AUTHOR AUTHOR'S ORGANIZ ATION 08/15/2024 [facility] DATE CREATED AUTHOR AUTHOR'S ORGANIZ ATION 08/16/2024 [facility] DATE CREATED AUTHOR AUTHOR'S ORGANIZ ATION 08/17/2024 [facility] DATE CREATED AUTHOR AUTHOR'S ORGANIZ ATION 08/19/2024 [facility] DATE CREATED AUTHOR AUTHOR'S ORGANIZ ATION 08/23/2024 [facility] DATE CREATED AUTHOR AUTHOR'S ORGANIZ ATION 09/22/2024 [facility] DATE CREATED AUTHOR AUTHOR'S ORGANIZ ATION 10/05/2024 [facility] DATE CREATED AUTHOR AUTHOR'S ORGANIZ ATION 11/17/2024 [facility] DATE CREATED AUTHOR AUTHOR'S ORGANIZ ATION 11/18/2024 [facility] DATE CREATED AUTHOR AUTHOR'S ORGANIZ ATION 11/24/2024 [facility] DATE CREATED AUTHOR AUTHOR'S ORGANIZ ATION 12/08/2024 [facility] DATE CREATED AUTHOR AUTHOR'S ORGANIZ ATION 12/11/2024 [facility] DATE CREATED AUTHOR AUTHOR'S ORGANIZ ATION 01/10/2025 [facility] DATE CREATED AUTHOR AUTHOR'S ORGANIZ ATION 01/12/2025 [facility] DATE CREATED AUTHOR AUTHOR'S ORGANIZ ATION 01/14/2025 [facility] EPIC Source Comments (unrecognize d section and content) In the event this informatio n is protected by the Federal Confidentiality of Alcohol and Drug Abuse Patient Records regulations: The Federal rules restrict any use of the information to criminally investigate or prosecute any alcohol or drug abuse patient.Way[facility] HospitalIn the event this information is protected by the Federal Confidentiality of Alcohol and Drug Abuse Patient Records regulations: The Federal rules restrict any use of the information to criminally investigate or prosecute any alcohol or drug abuse patient.[facility] Reason for Visit (unrecogniz ed section and content) ReasonCommentsPituitary ProblemReasonCommentsn/v. chest painReasonComments ResultsReasonCommentsTelehealthInfertilityReasonCommentsInfertilityReason CommentsMental Health ProblemPatient feels in a manic phase.ReasonCommentsER Follow-upPt present today for an ER follow up. Pt was seen at [facility] 06/[facility]/2024 for hyperemesis w/.ReasonCommentsAmenorrheaReasonComments Routine VisitReasonCommentsVomiting [...] Team MemberRelationshipSpecialtyStart DateEnd Date Uriel Meade DO [address] [place], [place] [address] [address] ReferringOb/Gyn4/2/24Team MemberRelationshipSpecialtyStart DateEnd Date Uriel Meade DO [address] [facility] [place] [address] ReferringOb/Gyn4/2/24Team MemberRelationshipSpecialtyStart DateEnd Date Carolyne Collazo MD [address] [place] [address] PCP - GeneralFamily Medicine08/28/22Team MemberRelationshipSpecialtyStart DateEnd Date Carolyne Collazo MD [address] [place] [address] PCP - GeneralFamily Medicine08/28/22Team MemberRelationshipSpecialtyStart DateEnd Date Carolyne Collazo MD [address] [place] [address] PCP - GeneralFamily Medicine08/28/22Team MemberRelationshipSpecialtyStart DateEnd Date Carolyne Collazo MD [address] [place] [address] PCP - GeneralFamily Medicine08/28/22Team MemberRelationshipSpecialtyStart DateEnd Date Carolyne Collazo MD [address] [place] [address] PCP - GeneralFamily Medicine08/28/22Team MemberRelationshipSpecialtyStart DateEnd Date Carolyne Collazo MD [address] [place] [address] PCP - GeneralFamily Medicine08/28/22Team MemberRelationshipSpecialtyStart DateEnd Date Carolyne Collazo MD [address] [place] [address] PCP - GeneralFamily Medicine08/28/22Team MemberRelationshipSpecialtyStart DateEnd Date Carolyne Collazo MD [address] [place] [address] PCP - GeneralFamily Medicine08/28/22Team MemberRelationshipSpecialtyStart DateEnd Date Carolyne Collazo MD [address] [place] [address] PCP - GeneralFamily Medicine08/28/22Team MemberRelationshipSpecialtyStart DateEnd Date Carolyne Collazo MD [address] [place] [address] PCP - GeneralFamily Medicine08/28/22Team MemberRelationshipSpecialtyStart DateEnd Date Carolyne Collazo MD [address] [place] [address] PCP - GeneralFamily Medicine08/28/22Team MemberRelationshipSpecialtyStart DateEnd Date Carolyne Collazo MD [address] [place] [address] PCP - GeneralFamily Medicine08/28/22Team MemberRelationshipSpecialtyStart DateEnd Date Carolyne Collazo MD [address] [place] [address] PCP - GeneralFamily Medicine08/28/22Team MemberRelationshipSpecialtyStart DateEnd Date Carolyne Collazo MD [address] [place] [address] PCP - GeneralFamily Medicine08/28/22Team MemberRelationshipSpecialtyStart DateEnd Date Carolyne Collazo MD [address] [place] [address] PCP - GeneralFamily Medicine08/28/22Team MemberRelationshipSpecialtyStart DateEnd Date Carolyne Collazo MD [address] [place] [address] PCP - GeneralFamily Medicine08/28/22Team MemberRelationshipSpecialtyStart DateEnd Date Carolyne Collazo MD [address] [place] [address] PCP - GeneralFamily Medicine08/28/22Team MemberRelationshipSpecialtyStart DateEnd Date Yasmin Welch DO [address] [place] [address] PCP - [facility]ally Medicine08/13/24Team MemberRelationshipSpecialtyStart DateEnd Date Yasmin Welch DO [address] [place] [address] PCP - Generalmily Medicine08/13/24Team MemberRelationshipSpecialtyStart DateEnd Date Yasmin Welch DO [address] [place] [address] PCP - GeneralFamily Medicine08/13/24Team MemberRelationshipSpecialtyStart DateEnd Date Carolyne Collazo MD [address] [place] [address] PCP - Generalmily Medicine08/28/22Team MemberRelationshipSpecialtyStart DateEnd Date Carolyne Collazo MD [address] [place] [address] PCP - GeneralFamily Medicine08/28/22Team MemberRelationshipSpecialtyStart DateEnd Date Carolyne Collazo MD [address] [place] [address] PCP - GeneralFamily Medicine08/28/22Team MemberRelationshipSpecialtyStart DateEnd Date Yasmin Welch DO [address] [place] [address] PCP - GeneralFamily Medicine09/03/24Team MemberRelationshipSpecialtyStart DateEnd Date Yasmin Welch DO [address] [place] [address] PCP - GeneralFamily Medicine09/03/24Team MemberRelationshipSpecialtyStart DateEnd Date Yasmin Welch DO [address] [place] [address] PCP - GeneralFamily Medicine09/03/24Team MemberRelationshipSpecialtyStart DateEnd Date Yasmin Welch DO [address] [place] [address] PCP - GeneralFamily Medicine09/03/24Team MemberRelationshipSpecialtyStart DateEnd Date Carolyne Collazo MD [address] [place] [address] PCP - GeneralFamily Medicine08/28/22Team MemberRelationshipSpecialtyStart DateEnd Date Yasmin Welch DO [address] [place] [address] PCP - GeneralFamily Medicine09/03/24Team MemberRelationshipSpecialtyStart DateEnd Date Yasmin Welch DO [address] [place] [address] PCP - GeneralFamily Medicine09/03/24Team MemberRelationshipSpecialtyStart DateEnd Date Yasmin Welch DO [address] [place] [address] PCP - GeneralFamily Medicine09/03/24Team MemberRelationshipSpecialtyStart DateEnd Date Yasmin Welch DO [address] [place] [address] PCP - GeneralFamily Medicine09/03/24Team MemberRelationshipSpecialtyStart DateEnd Date Yasmin Welch DO [address] [place] [address] PCP - GeneralFamily Medicine09/03/24Team MemberRelationshipSpecialtyStart DateEnd Carolyne Collazo MD [address] [place] [address] PCP - GeneralFamily Medicine08/28/22Team MemberRelationshipSpecialtyStart DateEnd Date Yasmin Welch DO [address] [place] [address] PCP - GeneralFamily Medicine09/03/24Team MemberRelationshipSpecialtyStart DateEnd Date Yasmin Welch DO [address] [place] [address] PCP - GeneralFamily Medicine09/03/24Team MemberRelationshipSpecialtyStfalmouth DateEnd Date Yasmin Welch [address] [place] [address] PCP - [facility]09/03/24Te MemberRelationshipSGardner Sanitarium DateEnd Date Carolyne Collazo MD [address] [place] [address] PCP - [facility]08/28/22Team MemberRelationshipSGardner Sanitarium DateEnd Date Carolyne Collazo MD [address] [place] [address] PCP - [facility]08/28/22 Scheduled Active and Recently Administ ered Medications [...] Brennan RN) * 1600 (Stopped - Provider: Craoline Brennan RN) morphine injection 4 mg (COMPLETED) [...] Newton, CINDY) * 0903 (Stopped - Provider: Mrey Cole, CINDY) vitamin (iron-folic) tablet 1 tablet [...] Starting on Sun08/15/24 at 0305, For 1dose [id number] 1:1:1 Magic Mouthwash 10 mL, Swish & [...] line, Starting on Sun08/15/24 at 0305, Give KS if patient is unable to take orally [...] line, Starting on Sun08/15/24 at 0305, Give KS if patient is unable to take orally [...] BE BASED ON THE PRIMARY CLINICAL RECORDS. [facility]. provides no warranty or guarantee of the accuracy or completeness of information in this document.
--- OUTSIDE RECORDS SUMMARY | 2025-01-21 22:29 | XMS_ITS | Encounter Summary ---
Author Organization [facility] Address [address] [place] [address] Care Team Providers Care Manager Sharepoint Name Role Phone Raleigh Collazo MD Primary Care Provider [phone] Encounter Details DateTypeDepartmentCare Team (Latest Contact Info)Gnmwbnhrvpw08/13/2025Telephone [facility] [address] [address] Dayana Griffith MA Social History Tobacco [...] friends or relatives?Never02/15/2024How often do you attend episcopalian or jewish services?Never4Do you belong to any clubs or organizations such as episcopalian groups, unions, fraternal or athletic isauro ups, or school groups?No02/15/2024How often do you attend meetings of the clubs or organizations you belong to?Never4Are you , , , , never , or living with a partner?[place]8602/15/2024 AUDIT-CAnswerDate RecordedQ1: How often do you have [...] housing, medical care, and heating?Not hard at all02/15/2024[facility] [place] [facility] - Occupational Stress QuestionnaireAnswerDate [...] homeless or living in a prison (including now)?No02/15/2024Estimated Date of DeliveryComments Yes5Based on Interfaced EDDSex and Gender InformationValueDate Recorded Sex Assigned at BirthNot on fileLegal SosUybgxv04/15/2023 7:05 PM EDTGender IdentityNot on fileSexual OrientationNot on filedocumented as of this encounter Miscellaneous Notes * Telephone Encounter - Dayana Griffith MA - 01/15/2025 11:52 AM EST Camron from [facility] called stating pt was there for NST and BPP NST reactive BPP 10/10 FHR 130, Vertex documented in this encounter Plan of Treatment Not on file documented as of this encounter Visit Diagnoses Not on filedocumented in this encounter Care Teams Team MemberRelationshipSpecialtyStart DateEnd Date Raleigh Collazo MD [address] [place] [address] PCP - GeneralFamily Medicine08/28/22documented as of this encounter
[2025-01-21 22:59] VITALS: BP 113/58; PULSE 99
[2025-01-21 23:02] LABS: Hematocrit 29.8 % (36.0-48.0); Hemoglobin 9.9 g/dL (12.0-16.0); Mean Corpuscular HGB Conc 33.2 g/dL (29.9-35.2); Mean Corpuscular Hemoglobin 29.6 pg (26.7-34.0); Mean Corpuscular Volume 89.2 fL (81.0-99.0); Platelet Count 288 10^3/uL (150-450); Red Blood Count 3.34 10^6/uL (4.20-5.40); White Blood Count 15.3 10^3/uL (4.0-11.0)
[2025-01-21 23:12] LABS: Cannabinoid Screen Urine POSITIVE (NEGATIVE); Methamphetamines Screen Urine NEGATIVE (NEGATIVE); Tricyclic Antidepressant Urine NEGATIVE (NEGATIVE)
[2025-01-21] MEDS: AMPICILLIN SODIUM 2,000 MG in 0.9 % SODIUM CHLORIDE 100 ML 200 MG IV (23:58)
[2025-01-21] MEDS: 0.9 % SODIUM CHLORIDE 1,000 ML 125 ML IV (23:59)
[2025-01-21] MEDS: ZOLPIDEM TARTRATE 10 MG TABLET PO (23:59)
[2025-01-22] VITALS (35 sets, daily range): BP systolic 90–136; BP diastolic 51–86; PULSE 70–128; TEMP 36.7–37.3
[2025-01-22] MEDS: OXYTOCIN/0.9 % SODIUM CHLORIDE 10 UNITS/500 ML PLAST..BAG 6 UNIT IV
[2025-01-22] MEDS: AMPICILLIN SODIUM 1,000 MG in 0.9 % SODIUM CHLORIDE 50 ML 100 MG IV ×2 (04:19→08:15)
[2025-01-22] MEDS: ONDANSETRON 4 MG RAPDIS TABLET SL (04:20)
[2025-01-22] MEDS: 0.9 % SODIUM CHLORIDE 1,000 ML 125 ML IV (06:00)
[2025-01-22] MEDS: ROPIVACAINE HCL/PF 400 MG/200 ML PREMIX 10 MG EPIDURAL (06:43)
--- NOTE | 2025-01-22 09:13 | PM.OBPN ---
OB - PN: Subj Subjective Patient comments: no complaints [place] status: doing well feeding status: exclusively bottle feeding Exam Constitutional Vital Signs, click to edit/add: Last Vital Signs Pulse 96 H 01/22/25 07:08 BP 132/77 01/22/25 07:08 Documenting provider has reviewed patient's vital signs: yes Common normals: no apparent distress, average body habitus and oriented x3 General appearance: cooperative, comfortable and well kempt Orientation/consciousness: Yes awake, Yes oriented to person, Yes oriented to place and Yes oriented to time HENMT Common normals: normocephalic Eye Common normals: EOMs intact bilaterally Neck & C-Spine Common normals: full ROM and no lymphadenopathy Lymph Lymphatic: no lymphadenopathy noted Respiratory Common normals: normal respiratory effort Effort & inspection: able to speak in complete sentences Auscultation: clear to auscultation bilaterally Cardio Common normals: regular rate and regular rhythm Rate: regular rate Rhythm: regular rhythm GI Common normals: Normal to inspection, nondistended, normoactive bowel sounds present Inspection: normal to inspection Auscultation: normoactive bowel sounds Palpation: soft Common normals: no CVA tenderness Back & Pelvis Common normals: no CVA tenderness Extremity Common normals: normal to inspection and full ROM Neuro Common normals: oriented x3 Sensorium/orientation: awake, alert, oriented to person, oriented to place and oriented to time Psych Common normals: mental status grossly normal, thought process normal, cooperative, affect normal, speech normal, activity/motor behavior normal, denies hallucinations, denies homicidal ideation and denies suicidal ideation Attitude: calm Thought content: normal thought content Results Labs Labs: Short CBC 01/21/25 Range/Units 22:50 WBC 15.3 H (4.0-11.0) 10^3/uL Hgb 9.9 L (12.0-16.0) g/dL Hct 29.8 L (36.0-48.0) % Plt Count 288 (150-450) 10^3/uL OB - PN: A/P Assessment and Plan (1) Term : Plan continue routine labor with Dr Meade Time Spent with Patient Time: Total time spent is greater than 50% in coordination of care (as documented) at patient's floor/unit and/or counseling patient: Total time spent with greater than 50% in coordination of care (as documented) at patient's floor/unit and/or counseling patient: less than 15 minutes
--- NOTE | 2025-01-22 13:21 | PM.OBPRCVD ---
Procedure Intrapartal events: None Induction method: per pitocin protocol Delivery augmentation: rupture of membranes and pitocin Delivery monitor: external FHT and external uterine Route of delivery: Episiotomy Description: none L&D Laceration Description: periurethral - 1st degree Delivery repair: Vicryl Estimated blood loss (mL): 450 Anesthesia type: Epidural Disposition: floor Infant Delivery date: 01/22/25 Gender: female presentation: vertex Placental delivery description: Spontaneous cord description: 3 Vessels
[2025-01-22] MEDS: OXYTOCIN/0.9 % SODIUM CHLORIDE 20 UNITS/1,000 ML PLAST..BAG 999 UNIT IV (13:22)
[2025-01-22] MEDS: IBUPROFEN 600 MG TABLET PO ×2 (15:07→20:52)
[2025-01-22] MEDS: MAALOX (MAG HYDROX/ALUMINUM HYD/SIMETH) 30 ML ORAL.SUSP PO (15:47)
[2025-01-22] MEDS: HYOSCYAMINE SULFATE 0.125 MG TAB.SUBL 0.25 MG PO (15:48)
[2025-01-22 18:40] LABS: Hematocrit 29.5 % (36.0-48.0); Hemoglobin 9.6 g/dL (12.0-16.0); Mean Corpuscular HGB Conc 32.5 g/dL (29.9-35.2); Mean Corpuscular Hemoglobin 29.4 pg (26.7-34.0); Mean Corpuscular Volume 90.5 fL (81.0-99.0); Platelet Count 346 10^3/uL (150-450); Red Blood Count 3.26 10^6/uL (4.20-5.40); White Blood Count 29.6 10^3/uL (4.0-11.0)
[2025-01-22 19:01] LABS: Band Neutrophils Absolute 1.8 10^3/uL (0.0-0.3); Basophils Abs Manual 0.29 10^3/uL (0.00-0.10); Basophils Percent Manual 1.0 % (0.2-2.0); Eosinophils Absolute Manual 0.00 10^3/uL (0.00-0.70); Eosinophils Percent Manual 0.0 % (0.9-7.0); Lymphocytes Absolute Manual 2.07 10^3/uL (1.20-3.80); Lymphocytes Percent Manual 7.0 % (20.5-60.0); Monocytes Absolute Manual 0.59 10^3/uL (0.30-0.80); Monocytes Percent Manual 2.0 % (1.7-12.0); Segmented Neut Absolute Manual 24.86 10^3/uL (1.4-6.5); Segmented Neutrophils % Manual 84.0 (43.0-75.0)
[2025-01-23] MEDS: ACETAMINOPHEN 325 MG TABLET 650 MG PO (00:02)
[2025-01-23] MEDS: ZOLPIDEM TARTRATE 10 MG TABLET PO (00:02)
[2025-01-23 00:15] VITALS: TEMP 37.2
[2025-01-23] MEDS: IBUPROFEN 600 MG TABLET PO ×2 (05:31→13:50)
[2025-01-23 06:22] VITALS: BP 108/51; PULSE 65
[2025-01-23 06:42] LABS: Hemoglobin 7.6 g/dL (12.0-16.0); Immature Granulocytes Abs Auto 0.23 10^3/uL (0.00-0.03); Immature Granulocytes Pct Auto 1.2 % (0.0-0.5); Lymphocytes Absolute Auto 2.5 10^3/uL (1.2-3.8); Mean Corpuscular HGB Conc 33.5 g/dL (29.9-35.2); Mean Corpuscular Hemoglobin 29.8 pg (26.7-34.0); Mean Corpuscular Volume 89.0 fL (81.0-99.0); Platelet Count 269 10^3/uL (150-450); Red Blood Count 2.55 10^6/uL (4.20-5.40); White Blood Count 18.9 10^3/uL (4.0-11.0)
[2025-01-23 06:44] LABS: Hematocrit 22.7 % (36.0-48.0)
[2025-01-23 09:51] VITALS: BP 128/63; PULSE 82; TEMP 37.4
[2025-01-23] MEDS: GLYCERIN/WITCH HAZEL PADS 1 PAD TOPICAL (10:05)
[2025-01-23] MEDS: BENZOCAINE/MENTHOL 85 GRAM SPRAY BOTTLE 1 APPLIC TOPICAL (10:05)
[2025-01-23] MEDS: DOCUSATE SODIUM 100 MG CAPSULE PO (10:05)
--- NOTE | 2025-01-23 10:31 | PM.OBPN ---
OB - PN: Subj Subjective Patient comments: no complaints and pain well controlled status: doing well Exam Constitutional Vital Signs, click to edit/add: Last Vital Signs Temp 98.9 F 01/23/25 00:15 Pulse 82 01/23/25 09:51 Resp 18 01/23/25 00:07 BP 128/63 01/23/25 09:51 O2 Del Method Room Air 01/23/25 00:07 Documenting provider has reviewed patient's vital signs: yes Common normals: no apparent distress Respiratory Common normals: normal respiratory effort and clear to auscultation bilaterally Cardio Common normals: regular rate and regular rhythm GI Common normals: Normal to inspection, nondistended, normoactive bowel sounds present Extremity Common normals: no clubbing, cyanosis or edema and no calf tenderness Results Labs Labs: Short CBC 01/22/25 01/23/25 Range/Units 18:33 06:10 WBC 29.6 H 18.9 H (4.0-11.0) 10^3/uL Hgb 9.6 L 7.6 L (12.0-16.0) g/dL Hct 29.5 L 22.7 L* (36.0-48.0) % Plt Count 346 269 (150-450) 10^3/uL OB - PN: A/P Assessment and Plan (1) Term : Plan - Vaginal Delivery day: 1 Plan: routine care, discharge home and follow up 6 weeks Time Spent with Patient Time: Total time spent is greater than 50% in coordination of care (as documented) at patient's floor/unit and/or counseling patient: Total time spent with greater than 50% in coordination of care (as documented) at patient's floor/unit and/or counseling patient: less than 15 minutes
--- NOTE | 2025-01-23 13:29 | SWNOTE1 ---
SW consulted for drug abuse, pt was positive for THC on admission. SW met with pt and father of baby to discuss positive THC drug screen. Pt has everything she needs at home for baby. She is bottle feeding and it is going well. Pt and father of baby have 4 kids all together, she has an older daughter and father of baby has 2 kids of his own. They have good support at home as well. Pt does get time off work through the holidays. SW did ask about THC. Pt does have her Medical marijuana card, she got it back in 2019. Pt has PTSD and anxiety. She also had Hyperemesis during this , Marijuana helped with her appetite. SW did advise that SW is a mandated reported and has to make a report to [facility] CPS. They voiced understanding and had no further questions. Pt and father of baby are caring for baby appropriately. Report made to [facility] CPS. HIPAA form completed and sent to
[2025-01-23] MEDS: HYOSCYAMINE SULFATE 0.125 MG TAB.SUBL 0.25 MG SL (14:58)
== END 2025-01-23 15:33 | disposition home or self-care (01) | DRG 807 ==
PROVIDERS: Admitting Provider Obstetrics & Gynecology; PCP Family Medicine; Visit Provider Obstetrics & Gynecology
DX: O99.324 Drug use complicating childbirth (principal); Z37.0 Single live birth; O70.0 First degree perineal laceration during delivery; Z3A.37 37 weeks gestation of pregnancy; F12.90 Cannabis use, unspecified, uncomplicated; Z85.41 Personal history of malignant neoplasm of cervix uteri
CPT/HCPCS: 36415; 59050; 59410; 80307; 80349; 85007; 85025; 85027; 86850; 86900; 86901; J0290; J2795; Q0162